=== PATIENT | male | born 1930 | race Caucasian/White ===

== ENCOUNTER 2016-11-08 10:40 | Emergency (ER) | payer MEDICARE ==
[~2016-11-08] VITALS: Ht 177.8 cm; Wt 63.5 kg
[~2016-11-08 10:40] MED LIST: AMLO10TA2 PO; AMLO10TA4 PO; AMLO5TAB2 PO; ASP81TEC PO; ASPI-586 PO; CETI10TA17 PO; CHOL10003 PO; CIPR-225 PO; CITA10TA PO; CLOP75TA PO; CLOP75TA28 PO; CPR500T PO; DCS100C PO; DICY10CA26 PO; DNPZ5T PO; DONE10TA12 PO; FLT05NA16 NSEACH; FLUO15CR8 TP; FNST5T PO; HYDR-3812 PO; HYOS0.127 PO; LISI-552 PO; LISI10TA PO; LORA0.5T PO; LORA10TA7 PO; LOSA50TA6 PO; MELA1TAB15 PO; MELO-195 PO; MELO15TA39 PO; MEMA10TA2 PO; MEMA5TAB2 PO; METR500T PO; MIRT15TA6 PO; MULT1CAP27 PO; MYLANTA; PANT40TA3 PO; PNT40TEC PO; RPN.25T PO; SIMV20TA3 PO; SULF1TAB7 PO; TMSL.4C PO; TRM50T PO; [UNRECOGNIZED DRUG - OTHER]; bactrim PO
--- NOTE | 2016-11-08 10:52 | ED Cough/URI ---
General Chief Complaint: Cough/Cold/Flu Symptoms Stated Complaint: BLURRED VISION/CONGESTION Source: patient Exam Limitations: no limitations History of Present Illness Time seen by provider: 10:51 Initial Comments To ER complaint by his with reports of 3 days of nasal congestion. This morning while sitting at the breakfast table had a rather sudden onset of bilateral blurred vision and and "irritated" sensation in both of his eyes. He denies any headaches fevers or chills. He denies any pain in his eyes. Timing/Duration: getting worse Severity/Quality: moderate Associated Symptoms: denies symptoms Allergies and Home Medications Allergies Coded Allergies: butorphanol (Verified Allergy, Unknown, 11/28/11) ketorolac (Verified Adverse Reaction, Mild, STATES CAUSES MORE PAIN, ) Home Medications Amlodipine Besylate 10 Mg Tablet, 10 MG PO HS, (Reported) Aspirin 81 Mg Tablet.dr, 81 MG PO DAILY, (Reported) Cetirizine HCl 10 Mg Tablet, 10 MG PO DAILY, #30 Prescribed by: JONN REID on 04/14/16 0821 Cholecalciferol 1,000 Unit Tablet, 1,000 UNIT PO DAILY, (Reported) Citalopram Hydrobromide 10 Mg Tablet, 10 MG PO DAILY, (Reported) Clopidogrel Bisulfate 75 Mg Tablet, 75 MG PO DAILY, (Reported) Donepezil HCl 10 Mg Tablet, 10 MG PO HS, (Reported) Hydrocodone/Acetaminophen 1 Each Tablet, 1-2 TAB PO Q4H PRN for PAIN, #40 MAY TAKE ONE OR TWO TABLETS BY MOUTH EVERY 4 HOURS NEEDED FOR PAIN. DO NOT EXCEED 3000 MG TYLENOL(ACETAMINOPHEN)IN A 24 HOUR PERIOD(NO MORE THAN 9 TABLETS IN 24 HOURS) Prescribed by: JONN REID on 04/14/16 1159 Lisinopril 20 Mg Tablet, 20 MG PO DAILY, (Reported) Melatonin/Pyridoxine 1 Each Tablet, 5 MG PO HS, (Reported) Meloxicam 15 Mg Tablet, 15 MG PO DAILY, (Reported) Memantine HCl 10 Mg Tablet, 10 MG PO BID, (Reported) Mirtazapine 15 Mg Tablet, 15 MG PO HS, (Reported) Multivitamins 1 Each Capsule, 1 EACH PO DAILY, (Reported) Pantoprazole Sodium 40 Mg Tablet.dr, 40 MG PO DAILY, (Reported) Ropinirole HCl 0.25 Mg Tab, 0.25 MG PO BID, #30 Prescribed by: JONN REID on 04/14/16 0825 Constitutional: see HPI EENTM: see HPI Respiratory: no symptoms reported Cardiovascular: no symptoms reported Genitourinary: no symptoms reported Musculoskeletal: no symptoms reported Skin: no symptoms reported Psychiatric/Neurological: No Symptoms Reported Hematologic/Lymphatic: No Symptoms Reported Immunological/Allergic: no symptoms reported Past Tiwhael-Jloxtd-Wunxvs Hx Patient Social History Recent Foreign Travel: No Contact w/Someone Who Travel: No Recent Hopitalizations: No Immunizations Up To Date Date of Pneumonia Vaccine: May 09, 2012 Date of Influenza Vaccine: Apr 13, 2016 Surgeries HX Surgeries: Yes (BILAT INGHERNIA ,CATARACT SURGERY, TURP) Surgeries: Abdominal, Adenoidectomy, Tonsillectomy Respiratory Hx Respiratory Disorders: No Cardiovascular Hx Cardiac Disorders: Yes (STENTS X2) Cardiac Disorders: High Cholesterol, Hypertension Neurological Hx Neurological Disorders: Yes (1993-STROKE) Neurological Disorders: Dementia, Stroke Reproductive System Hx Reproductive Disorders: No Sexually Transmitted Disease: No HIV/AIDS: No Genitourinary Hx Genitourinary Disorders: Yes Genitourinary Disorders: Benign Prostatic Hyperpl, Prostate Problems Gastrointestinal Hx Gastrointestinal Disorders: Yes Gastrointestinal Disorders: Gastroesophageal Reflux Musculoskeletal Hx Musculoskeletal Disorders: Yes (ARTHRITIS) Endocrine Hx Endocrine Disorders: No HEENT HX ENT Disorders: Yes (WEARS GLASSES, BILATERAL HEARING AIDS, ) HEENT Disorders: Cataract Loss of Vision: Bilateral Hearing Impairment: Bilateral Hearing Aide Cancer Hx Cancer: No Psychosocial Hx Psychiatric Problems: No Integumentary HX Skin/Integumentary Disorder: No Blood Transfusions Hx Blood Disorders: No Adverse Reaction to a Blood Tr: No Physical Exam Vital Signs Vital Sign - Last 12Hours 11/08/16 10:45 Temp 99.8 Pulse 79 Resp 18 B/P (MAP) 139/78 Pulse Ox 94 O2 Delivery Room Air Capillary Refill : General Appearance: WD/WN, no apparent distress Eyes: Bilateral Eye EOMI, Bilateral Eye Normal Inspection, Bilateral Eye PERRL HEENT: PERRL/EOMI, normal ENT inspection, other (bilaterally there is some scleral injection peoples or sluggish but equally reactive) Neck: non-tender, full range of motion Respiratory: no respiratory distress, no accessory muscle use Gastrointestinal: normal bowel sounds, non tender, soft Extremities: normal range of motion, non-tender Neurologic/Psychiatric: alert, normal mood/affect, oriented x 3 Skin: normal color, warm/dry Progress/Results/Core Measures Results/Orders Lab Results Laboratory Tests Test 11/08/16 11:00 Range/Units White Blood Count 8.2 4.3-11.0 10^3/uL Red Blood Count 3.93 L 4.35-5.85 10^6/uL Hemoglobin 12.4 L 13.3-17.7 G/DL Hematocrit 37 L 40-54 % Mean Corpuscular Volume 93 80-99 FL Mean Corpuscular Hemoglobin 32 25-34 PG Mean Corpuscular Hemoglobin Concent 34 32-36 G/DL Red Cell Distribution Width 14.5 10.0-14.5 % Platelet Count 164 130-400 10^3/uL Mean Platelet Volume 10.0 7.4-10.4 FL Neutrophils (%) (Auto) 77 H 42-75 % Lymphocytes (%) (Auto) 5 L 12-44 % Monocytes (%) (Auto) 18 H 0-12 % Eosinophils (%) (Auto) 0 0-10 % Basophils (%) (Auto) 0 0-10 % Neutrophils # (Auto) 6.3 1.8-7.8 X 10^3 Lymphocytes # (Auto) 0.4 L 1.0-4.0 X 10^3 Monocytes # (Auto) 1.5 H 0.0-1.0 X 10^3 Eosinophils # (Auto) 0.0 0.0-0.3 10^3/uL Basophils # (Auto) 0.0 0.0-0.1 10^3/uL Neutrophils % (Manual) 82 % Lymphocytes % (Manual) 6 % Monocytes % (Manual) 12 % Rouleau SLIGHT Blood Morphology Comment NORMAL Erythrocyte Sedimentation Rate 16 0-30 MM/HR Sodium Level 128 L 135-145 MMOL/L Potassium Level 4.4 3.6-5.0 MMOL/L Chloride Level 95 L 98-107 MMOL/L Carbon Dioxide Level 22 21-32 MMOL/L Anion Gap 11 5-14 MMOL/L Blood Urea Nitrogen 16 7-18 MG/DL Creatinine 0.90 0.60-1.30 MG/DL Estimat Glomerular Filtration Rate > 60 BUN/Creatinine Ratio 18 Glucose Level 130 H 70-105 MG/DL Calcium Level 8.7 8.5-10.1 MG/DL C-Reactive Protein High Sensitivity 10.25 H 0.00-0.50 MG/DL My Orders Orders - LUCAS CALLES APRN Cbc With Automated Diff (11/08/16 10:50) Erythrocyte Sedimentation Rate (11/08/16 10:50) Hs C Reactive Protein (11/08/16 10:50) Basic Metabolic Panel (11/08/16 10:50) Tetracaine 0.5% Ophth Dora Sdv (Tetracai (11/08/16 11:00) Manual Differential (11/08/16 11:00) Ct Head Wo (11/08/16 12:06) Medications Given in ED Current Medications Medications Dose Ordered Sig/Niall Route Start Time Stop Time Status Last Admin Dose Admin Tetracaine HCl 1 OR 2 DROPS INTO AFFEC... ONCE ONCE OP 11/08/16 11:00 11/08/16 11:01 DC 11/08/16 11:27 4 ML Vital Signs/I&O Vital Sign - Last 12Hours 11/08/16 10:45 Temp 99.8 Pulse 79 Resp 18 B/P (MAP) 139/78 Pulse Ox 94 O2 Delivery Room Air Departure Communication Progress Notes Right intraocular pressure 26 mm mercury, left 19. 1231-discussed the case with Dr. Hassan. Dr. Figueroa will see the patient in the clinic at 1 p.m. Impression Impression: Primary Impression: Nasal congestion Additional Impressions: Blurred vision Viral conjunctivitis Disposition: 01 HOME, SELF-CARE Condition: Stable Departure-Patient Inst. Decision time for Depature: 11:49 Referrals: DAYDAY JACQUES MD (PCP/Family) Primary Care Physician LORENZA REIS OD Patient Instructions: Age-Related Vision Loss Add. Discharge Instructions: 1. Your to see Dr. Reis at 1 p.m. at his office which is directly across the street from [facility] All discharge instructions reviewed with patient and/or family. Voiced understanding. LUCAS CALLES APRN Nov 08, 2016 10:52
[2016-11-08] MEDS ORDERED: TETRACAINE 0.5% OPHTH SOLN 4 ML BTL (SINGLE DOSE ONLY) OP ONE (11:00)
[2016-11-08 11:13] LABS: BASOPHILS % (AUTO) 0 % (0-10); EOSINOPHILS % (AUTO) 0 % (0-10); LYMPHOCYTES # (AUTO) 0.4 X 10^3 (1.0-4.0); LYMPHOCYTES % (AUTO) 5 % (12-44); MEAN CORPUSCULAR HEMOGLOBIN 32 PG (25-34); MEAN CORPUSCULAR HGB CONC 34 G/DL (32-36); MEAN CORPUSCULAR VOLUME 93 FL (80-99); MONOCYTES # (AUTO) 1.5 X 10^3 (0.0-1.0); MONOCYTES % (AUTO) 18 % (0-12); NEUTROPHILS # (AUTO) 6.3 X 10^3 (1.8-7.8); NEUTROPHILS % (AUTO) 77 % (42-75); PLATELET COUNT 164 10^3/uL (130-400); RED BLOOD COUNT 3.93 10^6/uL (4.35-5.85); RED CELL DISTRIBUTION WIDTH 14.5 % (10.0-14.5); WHITE BLOOD COUNT 8.2 10^3/uL (4.3-11.0)
[2016-11-08 11:28] LABS: ANION GAP 11 MMOL/L (5-14); BLOOD UREA NITROGEN 16 MG/DL (7-18); BUN/CREATININE RATIO 18; CALCIUM 8.7 MG/DL (8.5-10.1); CARBON DIOXIDE 22 MMOL/L (21-32); CHLORIDE 95 MMOL/L (98-107); GFR ESTIMATED > 60; GLUCOSE 130 MG/DL (70-105); POTASSIUM 4.4 MMOL/L (3.6-5.0); SODIUM 128 MMOL/L (135-145); hs C REACTIVE PROTEIN 10.25 MG/DL (0.00-0.50)
[2016-11-08 11:33] LABS: LYMPHOCYTES % (MANUAL) 6 %; NEUTROPHILS % (MANUAL) 82 %
[2016-11-08 11:34] LABS: ERYTHROCYTE SEDIMENTATION RATE 16 MM/HR (0-30); ROULEAUX SLIGHT
[2016-11-08 12:36] VITALS: BP 139/78
--- NOTE | 2016-11-08 12:47 | Diagnostic Imaging Report ---
PROCEDURE: CT head without contrast. TECHNIQUE: Multiple contiguous axial images were obtained through the brain without the use of intravenous contrast. INDICATION: Blurred Vision. FINDINGS: There is no intracranial hemorrhage. There is periventricular and deep white matter hypodensities, compatible with chronic microvascular ischemic changes. No hydrocephalus. No extra-axial fluid collection is seen. The paranasal sinuses demonstrate mucosal thickening in the ethmoidal air cells. The orbits appear grossly unremarkable. The calvarium appears grossly unremarkable. IMPRESSION: 1. No intracranial hemorrhage. White matter findings are likely secondary to chronic microvascular ischemic changes. 2. Mucosal thickening in the ethmoidal air cells. Dictated by: Dictated on workstation # [id number]
== END 2016-11-08 12:36 | disposition home or self-care (01) ==
LOC: EDUNIT# 10:40 → ER 10:44
DX: R09.81 Nasal congestion (principal); B30.9 Viral conjunctivitis, unspecified; I10 Essential (primary) hypertension; E78.00 Pure hypercholesterolemia, unspecified; K21.9 Gastro-esophageal reflux disease without esophagitis; M19.90 Unspecified osteoarthritis, unspecified site; N40.1 Benign prostatic hyperplasia with lower urinary tract symptoms; Z79.82 Long term (current) use of aspirin; Z86.73 Personal history of transient ischemic attack (TIA), and cerebral infarction without residual deficits; Z95.5 Presence of coronary angioplasty implant and graft
CPT/HCPCS: 36415; 70450; 80048; 85007; 85027; 85652; 86141

== ENCOUNTER → 2016-11-11 | Outpatient (CLI) | payer MEDICARE ==
--- NOTE | 2016-11-11 19:58 | Diagnostic Imaging Report ---
PA and lateral views of the chest. INDICATION: Cough. FINDINGS: The lungs are clear. The heart size is normal. No significant effusion. No pneumothorax. The mediastinum and lucrecia appear unremarkable. 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 Thoracolumbar scoliosis centered around the thoracolumbar junction is also noted. IMPRESSION: No acute process. Dictated by: Dictated on workstation # [id number]
== END ==
LOC: RAD 14:51
PROVIDERS: ATTEND Nurse Practitioner Family
DX: R05 Cough (principal)
CPT/HCPCS: 71020

== ENCOUNTER → 2016-12-01 | Outpatient (CLI) | payer MEDICARE ==
--- NOTE | 2016-12-01 16:57 | Diagnostic Imaging Report ---
PROCEDURE: CT sinuses without contrast TECHNIQUE: Multiple contiguous axial images were obtained through the sinuses without the use of intravenous contrast. Coronal and sagittal reformations were then performed. INDICATION: Nocturnal sinus drainage. FINDINGS: There is opacification of the mid and posterior left ethmoidal air cells and mild mucosal thickening in the mid right ethmoidal air cells. The maxillary sinuses are clear. The ostiomeatal complexes are patent on both sides. The frontal sinuses are patent. The mastoid air cells and middle ear cavities appear aerated. Sphenoidal sinuses appear clear. The orbits appear symmetric. The nasal cavity demonstrate no focal lesion and no significant mucosal thickening seen. The soft tissues appear unremarkable. IMPRESSION: Opacification of mid and posterior ethmoid air cells mostly on the left side, could correlate with mild sinusitis. Dictated by: Dictated on workstation # [id number]
== END ==
LOC: RAD 15:48
PROVIDERS: ATTEND Family Medicine
DX: R93.8 Abnormal findings on diagnostic imaging of other specified body structures (principal); R09.82 Postnasal drip
CPT/HCPCS: 70486

== ENCOUNTER → 2017-03-03 | Outpatient (CLI) | payer MEDICARE | LOC: CARD 10:37 | PROVIDERS: ATTEND Internal Medicine Cardiovascular Disease | DX: I25.10 Atherosclerotic heart disease of native coronary artery without angina pectoris (principal); I65.23 Occlusion and stenosis of bilateral carotid arteries; E78.4 Other hyperlipidemia; R00.1 Bradycardia, unspecified; Z86.79 Personal history of other diseases of the circulatory system | CPT/HCPCS: 93306 ==

== ENCOUNTER 2017-03-09 19:34 | Emergency (ER) | payer MEDICARE ==
[~2017-03-09] VITALS: Ht 177.8 cm; Wt 63.5 kg
--- NOTE | 2017-03-09 21:39 | ED EENT ---
History of Present Illness General Chief Complaint: Skin/Wound Problems Stated Complaint: TONGUE BLEEDING Nursing Triage Note: PT AMB TO ED BY SELF, 2X2 GAUZES IN PT MOUTH REPORTING BLEEDING OF UNKOWN CAUSE. PT STATES 1814 POST SUPPER TOLD HIM HE HAD BLOOD ON MOUTH. PT TAKES PLAVIX Source: patient Exam Limitations: no limitations History of Present Illness Time seen by provider: 21:15 Initial Comments Patient presents to ER by private conveyance with chief complaint that he was sitting at the dinner table with his this evening and she noticed some blood coming out of his mouth. The patient denies biting his tongue. He has no known growths or nodules on his tongue or mouth. He says he was not using a knife anywhere near his mouth. He applied pressure but it did not stop bleeding taking the ER. He is on aspirin and Plavix but no other blood thinners. He is taking his medicines routinely. He has no history of cancer. No other recent trauma to the face or mouth. No fevers, chills, nausea, vomiting, diarrhea. Allergies and Home Medications Allergies Coded Allergies: butorphanol (Verified Allergy, Unknown, 11/28/11) ketorolac (Verified Adverse Reaction, Mild, STATES CAUSES MORE PAIN, ) Home Medications Amlodipine Besylate 10 Mg Tablet, 10 MG PO HS, (Reported) Aspirin 81 Mg Tablet.dr, 81 MG PO DAILY, (Reported) Cetirizine HCl 10 Mg Tablet, 10 MG PO DAILY, #30 Prescribed by: JONN REID on 04/14/16 0821 Cholecalciferol 1,000 Unit Tablet, 1,000 UNIT PO DAILY, (Reported) Citalopram Hydrobromide 10 Mg Tablet, 10 MG PO DAILY, (Reported) Clopidogrel Bisulfate 75 Mg Tablet, 75 MG PO DAILY, (Reported) Donepezil HCl 10 Mg Tablet, 10 MG PO HS, (Reported) Hydrocodone/Acetaminophen 1 Each Tablet, 1-2 TAB PO Q4H PRN for PAIN, #40 MAY TAKE ONE OR TWO TABLETS BY MOUTH EVERY 4 HOURS NEEDED FOR PAIN. DO NOT EXCEED 3000 MG TYLENOL(ACETAMINOPHEN)IN A 24 HOUR PERIOD(NO MORE THAN 9 TABLETS IN 24 HOURS) Prescribed by: JONN REID on 04/14/16 1159 Lisinopril 20 Mg Tablet, 20 MG PO DAILY, (Reported) Melatonin/Pyridoxine 1 Each Tablet, 5 MG PO HS, (Reported) Meloxicam 15 Mg Tablet, 15 MG PO DAILY, (Reported) Memantine HCl 10 Mg Tablet, 10 MG PO BID, (Reported) Mirtazapine 15 Mg Tablet, 15 MG PO HS, (Reported) Multivitamins 1 Each Capsule, 1 EACH PO DAILY, (Reported) Pantoprazole Sodium 40 Mg Tablet.dr, 40 MG PO DAILY, (Reported) Ropinirole HCl 0.25 Mg Tab, 0.25 MG PO BID, #30 Prescribed by: JONN REID on 04/14/16 0825 Review of Systems Constitutional: No chills, No diaphoresis Eyes: Denies Blurred Vision, Denies Drainage Ears: Denies Dizziness, Denies Pain Nose: denies clots, denies congestion Mouth: clots, denies loose teeth, denies pain, bloody discharge, denies serosanguinous discharge Throat: denies pain, denies swelling Respiratory: No cough, No dyspnea on exertion Cardiovascular: No chest pain, No palpitations Gastrointestinal: No abdominal pain, No constipation, No diarrhea, No nausea Past Nogpsjs-Ijvpbe-Ppktex Hx Patient Social History Alcohol Use: Denies Use Recreational Drug Use: No Smoking Status: Never a Smoker Recent Foreign Travel: No Contact w/Someone Who Travel: No Recent Infectious Disease Expo: No Recent Hopitalizations: No Immunizations Up To Date Tetanus Booster (TDap): Less than 5yrs Date of Pneumonia Vaccine: May 09, 2012 Date of Influenza Vaccine: Feb 06, 2017 Seasonal Allergies Seasonal Allergies: No Surgeries History of Surgeries: Yes (BILAT ING HERNIA ,CATARACT SURGERY, TURP) Surgeries: Abdominal, Adenoidectomy, Tonsillectomy Respiratory History of Respiratory Disorde: No Cardiovascular History of Cardiac Disorders: Yes (STENTS X2) Cardiac Disorders: Coronary Artery Disease, High Cholesterol, Hypertension Neurological History of Neurological Disord: Yes (1994-STROKE) Neurological Disorders: Dementia, Stroke Reproductive System Hx Reproductive Disorders: No Sexually Transmitted Disease: No HIV/AIDS: No Genitourinary History of Genitourinary Disor: Yes (HX TURP) Genitourinary Disorders: Benign Prostatic Hyperpl, Prostate Problems Gastrointestinal History of Gastrointestinal Di: Yes Gastrointestinal Disorders: Gastroesophageal Reflux Musculoskeletal History of Musculoskeletal Dis: Yes (ARTHRITIS) Endocrine History of Endocrine Disorders: No HEENT History of HEENT Disorders: Yes HEENT Disorders: Cataract Loss of Vision: Bilateral Hearing Impairment: Bilateral Hearing Aide Cancer History of Cancer: No Psychosocial History of Psychiatric Problem: No Integumentary History of Skin or Integumenta: No Blood Transfusions History of Blood Disorders: No Adverse Reaction to a Blood Tr: No Physical Exam Vital Signs Vital Sign - Last 12Hours 03/09/17 20:40 Temp 97.6 Pulse 65 Resp 20 B/P (MAP) 131/77 Pulse Ox 97 O2 Delivery Room Air General Appearance: WD/WN, no apparent distress Eyes: bilateral eye normal inspection, bilateral eye PERRL, bilateral eye EOMI Ears: bilateral ear auricle normal, bilateral ear canal normal, bilateral ear TM normal Nose: normal inspection, No active bleeding, No discharge Mouth/Throat: other (Pharynx with bloody secretions and clotting on the top of the tongue. When wiped away there is a small area just right of the midline at the very tip of his tongue that is actively bleeding a small amount. No other tumors, nodules, ulceration seen.) Neck: non-tender, full range of motion, supple Cardiovascular: normal peripheral pulses, regular rate, rhythm Respiratory: no respiratory distress, no accessory muscle use Neurologic/Psychiatric: alert, oriented x 3 Skin: normal color, warm/dry Progress/Results/Core Measures Results/Orders My Orders Orders - SEJAL WILSON Tranexamic Acid Injection (Cyklokapron I (03/09/17 21:45) Cbc No Diff (03/09/17 22:34) Comprehensive Metabolic Panel (03/09/17 22:34) Protime With Inr (03/09/17 22:34) Partial Thromboplastin Time (03/09/17 22:34) Dipht,Pertuss(Acell),Tet Adult (Boostrix (03/09/17 23:15) Medications Given in ED Current Medications Medications Dose Ordered Sig/Niall Route Start Time Stop Time Status Last Admin Dose Admin Tranexamic Acid 20 mg ONCE ONCE IV 03/09/17 21:45 03/09/17 21:46 DC 03/09/17 21:42 20 MG Vital Signs/I&O Vital Sign - Last 12Hours 03/09/17 20:40 Temp 97.6 Pulse 65 Resp 20 B/P (MAP) 131/77 Pulse Ox 97 O2 Delivery Room Air Blood Pressure Mean: 95 Progress Note #1: Time: 21:38 Progress Note We will attempt to stop the bleeding with TX say. If this is not successful try silver cautery. He'll need to follow-up with ENT to see if we can find tumor or something that needs excised or at least biopsied. Progress Note #2: Time: 23:24 Progress Note After using TX say and then silver cautery we have obtained hemostasis. We'll have the patient take his medicines with a sip of water only and otherwise be nothing by mouth until he sees his dentist tomorrow morning. We'll send some TX say home in case he has rebleeding. Consults Consults : Consulting Physician: VICK RIOJAS Consults Notes Discussed the case and the patient findings and she says she will not be able put a stitch in him and the physician is out of town. She would recommend the same things are done. She thinks that the tea bag with tendons might be helpful. Departure Impression Impression: Primary Impression: Tongue laceration Qualified Codes: S01.512A - Laceration without foreign body of oral cavity, initial encounter Disposition: 01 HOME, SELF-CARE Condition: Stable Departure-Patient Inst. Decision time for Depature: 23:25 Referrals: DAYDAY JACQUES MD (PCP/Family) Primary Care Physician Patient Instructions: Your Dental Health and Your Medical Health Add. Discharge Instructions: He may take your medicines with a sip of water. Otherwise do not eat or drink anything until you see your dentist in the morning. If you begin to have bleeding from the tongue again you should take the TXA impregnated gauze and apply over the leading wound and present against the roof of your mouth and hold there. Please do not swallow your secretions rather you should spit them out as swallowed blood can cause nausea and vomiting. If you begin to have chest pain or shortness of breath he should return to the ER. You have a laceration in the tip of your tongue that looks like it was caused by a tooth and was treated with teabags, tranexamic acid, silver nitrate cautery before we finally got it under control. I would like to follow up with your dentist so that if it still bleeding you can have a stitch placed if necessary. All discharge instructions reviewed with patient and/or family. Voiced understanding. Copy Copies To 1: DAYDAY JACQUES MD, TITUS J Mar 09, 2017 21:39
[2017-03-09] MEDS ORDERED: TRANEXAMIC ACID 100 MG/ML 10 ML INJECTION IV ONE (21:45)
[2017-03-09] MEDS ORDERED: TETANUS,DIPTH,PERTUSS P/F (BOOSTRIX) 0.5 ML VIAL IM ONE (23:15)
[2017-03-09 23:45] VITALS: BP 132/85
[2017-03-09] MEDS ORDERED: TRANEXAMIC ACID INJECTION 1,000 MG in NS (IVPB) 50 ML IV ONE (23:45)
== END 2017-03-09 23:45 | disposition home or self-care (01) ==
LOC: EDUNIT# 19:34 → ER 19:36
DX: S01.512A Laceration without foreign body of oral cavity, initial encounter (principal); I25.10 Atherosclerotic heart disease of native coronary artery without angina pectoris; I10 Essential (primary) hypertension; E78.00 Pure hypercholesterolemia, unspecified; F03.90 Unspecified dementia, unspecified severity, without behavioral disturbance, psychotic disturbance, mood disturbance, and anxiety; N40.0 Benign prostatic hyperplasia without lower urinary tract symptoms; M19.90 Unspecified osteoarthritis, unspecified site; Z23 Encounter for immunization; Z95.5 Presence of coronary angioplasty implant and graft; Z79.82 Long term (current) use of aspirin; Z79.02 Long term (current) use of antithrombotics/antiplatelets; Z90.89 Acquired absence of other organs; X58.XXXA Exposure to other specified factors, initial encounter
CPT/HCPCS: 99282

== ENCOUNTER → 2017-05-12 | Outpatient (CLI) | payer MEDICARE ==
[~2017-05-12] MED LIST changes: +ACHD5005 PO; +BARIUM SUSPENSION 2.1% (VANILLA SILQ) 450 ML PO ONE; +CATHETER FLUSH 10 ML SYR IV PRN; -HYDR-3812 PO; +IOHEXOL 350 MG/ML 100 ML (OMNIPAQUE 350) VIAL IV ONE; +NS 100 ML (IVPB) BAG IV ONE
[2017-05-12 13:19] LABS: BUN/CREATININE RATIO 17; CREATININE SERUM 1.04 MG/DL (0.60-1.30); GFR ESTIMATED > 60
--- NOTE | 2017-05-12 15:30 | Diagnostic Imaging Report ---
PROCEDURE: CT abdomen and pelvis with contrast. TECHNIQUE: Multiple contiguous axial images were obtained through the abdomen and pelvis after administration of intravenous contrast. INDICATION: Prostate cancer. FINDINGS: The previous CT abdomen/pelvis exam of 09/25/2014 did note that the prostate gland was enlarged measuring 5.5 cm in maximum transverse diameter. On this study, the prostate gland does not appear to be quite as prominent. The gland measures 5.0 cm. Along the inferior aspect of the prostate gland, there is a 1.4 x 1.6 cm area of enhancement. This finding is of uncertain etiology. It would be unlikely that this is due to a neoplastic process, but that possibility should still be considered. The urinary bladder is distended by urine. There is no obvious bladder abnormality evident. There is no pelvic mass or free fluid collection noted. The appendix was not well visualized, and there are no indirect signs of acute appendicitis. The liver, spleen, pancreas, adrenals, gallbladder, kidneys, aorta, and inferior vena cava are unremarkable for an acute abnormality. The stomach is partially filled with oral contrast and consequently difficult to assess. There are surgical clips along the anterior abdominal wall consistent with prior hernia repair. There is no sign of a recurrent hernia. The lung bases are clear. The bone windows show no sign of a fracture or of a destructive lesion. There is severe degenerative disc and bony disease throughout the lumbar spine, and there is levoscoliosis of the thoracolumbar junction. IMPRESSION: 1. The prostate gland does not appear as enlarged as noted on the prior exam. The area of increased density along the inferior aspect of the prostate gland is of uncertain etiology. It would be unlikely but possible that this is secondary to neoplasm. 2. There is no acute abnormality of the abdomen or pelvis identified. 3. There is no sign of metastatic skeletal disease. 4. These results will be discussed with Dr. Quintero. Dictated on workstation # [id number]
--- NOTE | 2017-05-12 17:01 | Diagnostic Imaging Report ---
EXAMINATION: Whole body bone scan. INDICATION: Prostate carcinoma. TECHNIQUE: This study was performed following administration of 24.8 mCi of 99m technetium MDP. Anterior and posterior whole body images were obtained. Images of the skull and thorax in the lateral projection were also performed. COMPARISON: There are no previous nuclear medicine bone scans available for comparison. FINDINGS: There are areas of increased activity involving the posterior aspect of the vertebral body of T11 on the left and the pedicle of L1 on the right. These findings are probably due to degenerative disease. In reviewing the CT abdomen/pelvis exam performed in conjunction with this study, there is no sign of bony destruction in these areas to suggest metastatic disease. There is no other focal area of abnormal uptake identified to indicate neoplastic disease. The levoscoliosis of the thoracolumbar spine seen previously is again evident. There is also an area of increased uptake in the lower cervical spine on the right. This too is probably degenerative in nature. The levoscoliosis of the thoracolumbar spine seen previous is again evident. In addition, there does appear to be degenerative disease of the shoulder, hip, and knee joints. There is no abnormal uptake to suggest neoplastic disease or an acute abnormality. There is excretion of the contrast by both kidneys. IMPRESSION: 1. The areas of abnormal uptake involving the vertebral bodies of T11 on the left and L1 on the right are probably due to degenerative disease. The increased uptake in the lower cervical region on the right is also most likely degenerative in nature. 2. There is no sign of metastatic disease or of an acute bony abnormality. Dictated by: Dictated on workstation # [id number]
== END ==
LOC: RAD 11:53
PROVIDERS: ATTEND Urology
DX: C61 Malignant neoplasm of prostate (principal)
CPT/HCPCS: 36415; 74177; 78306; 82565; 84520

== ENCOUNTER 2017-06-25 04:07 | Emergency (ER) | payer MEDICARE ==
[~2017-06-25] VITALS: Ht 177.8 cm; Wt 63.7 kg
[~2017-06-25 04:07] MED LIST changes: -BARIUM SUSPENSION 2.1% (VANILLA SILQ) 450 ML PO ONE; -CATHETER FLUSH 10 ML SYR IV PRN; -IOHEXOL 350 MG/ML 100 ML (OMNIPAQUE 350) VIAL IV ONE; -NS 100 ML (IVPB) BAG IV ONE
--- OUTSIDE RECORDS SUMMARY | 2017-06-25 04:13 | XMS REPORT | Continuity of Care Document ---
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
--- OUTSIDE RECORDS SUMMARY | 2017-06-25 04:21 | XMS REPORT | CCD ---
Author Author [facility] Organization [facility] Address [address] [place] [address] Phone Care Team Providers Care Assistant Professor Surgical Technology Name Role Phone Ale Carlos PP Unavailable CCM Unavailable Summary Purpose Interface Exchange Insurance Providers Payer name Policy type / Coverage type Covered republican ID Effective Begin Date Effective End Date WPS Medicare Part B Medicare Part B [id number] Unknown Unknown [facility] Medicare Part B [id number] Unknown Unknown Family history Runs in the family Diagnosis Age At Onset No Family Disease Entered N/A Mother Diagnosis Age At Onset No Family Disease Entered N/A Father Diagnosis Age At Onset Heart disease Unknown Social History Social History Element Codes Description Effective Dates Number of children [place] 3 3 [place] 05/06/2015 Living arrangements Unknown House 01/11/2011 Number of adults in household Unknown 2 01/11/2011 Education level Unknown Post-Graduate PHD in chemistry 01/11/2011 Employment Unknown 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 Unknown Has never used illegal drugs 01/06/2011 Allergies, Adverse Reactions, Alerts Substance Reaction Codes Entered Date Inactivated Date Status Lisinopril cough Unknown 03/25/2014 No Inactive Date Active Past Medical History Illness Codes Condition Status Onset Date Resolved Date Essential (primary) hypertension ICD-9: 401.1 ICD-10: I10 Active 03/21/2017 Unknown Other allergic rhinitis ICD-9: 477.8 ICD-10: J30.89 Active 01/20/2016 Unknown Encounter for immunization ICD-9: V04.81 ICD-10: Z23 Active 01/25/2017 Unknown Essential (primary) hypertension ICD-9: 401.9 ICD-10: I10 Active 12/24/2013 Unknown Other hypotension ICD- 9: 458.8 ICD-10: I95.89 Active 01/25/2017 Unknown Acute recurrent maxillary sinusitis ICD-9: 461.0 ICD-10: J01.01 Active 12/20/2016 Unknown Acute recurrent ethmoidal sinusitis ICD-9: 461.2 ICD-10: J01.21 Active 12/01/2016 Unknown Bronchitis, not specified as acute or chronic ICD-9: 490 ICD-10: J40 Active 11/18/2016 Unknown Cough ICD-9: 786.2 ICD-10: R05 Active 11/18/2016 Unknown Candidal esophagitis ICD-9: 112.84 ICD-10: B37.81 Active 11/18/2016 Unknown Mild cognitive impairment, so stated ICD-9: 331.83 ICD-10: G31.84 Active 05/29/2014 Unknown Olecranon bursitis, right elbow ICD-9: 726.33 ICD-10: M70.21 Active 02/16/2016 Unknown Hypo-osmolality and hyponatremia ICD-9: 276.1 ICD-10: E87.1 Active 02/04/2016 Unknown Generalized abdominal tenderness ICD-9: 789.67 ICD-10: R10.817 Active 01/25/2016 Unknown Encounter for immunization ICD-9: V03.9 ICD-10: Z23 Active 05/05/2015 Unknown Generalized anxiety disorder ICD-9: 300.02 ICD-10: F41.1 Active 05/29/2014 Unknown Mixed hyperlipidemia ICD-9: 272.4 ICD-10: E78.2 Active 01/24/2012 Unknown Gastro-esophageal reflux disease without esophagitis ICD-9: 530.81 ICD-10: K21.9 Active 03/04/2015 Unknown Major depressive disorder, single episode, 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 ICD-10: F32.0 Active 06/06/2014 Unknown IRRITABLE COLON ICD-9 : 564.1 Active 12/04/2014 Unknown Abdominal pain ICD-9: 789.00 Active 09/24/2014 Unknown Osteoarthritis ICD-9: 715.90 Active 01/24/2012 Unknown Depression Unknown Active 06/06/2014 Unknown Depression ICD-9: 311 Active 06/06/2014 Unknown Dizziness ICD-9: 780.4 Active 06/06/2014 Unknown Urinary frequency ICD- 9: 788.41 Active 06/06/2014 Unknown GENERALIZED ANXIETY DISEASE ICD-9: 300.02 Active 05/29/2014 Unknown Mild cognitive impairment with memory loss ICD-9: 331.83 Active 05/29/2014 Unknown NOCTURIA ICD-9: 788.43 Active 05/23/2014 Unknown Pneumonia ICD-9: 486 Active 05/20/2014 Unknown COUGH ICD-9: 786.2 Active 02/08/2014 Unknown ESSENTIAL HYPERTENSION ICD-9: 401.9 Active 12/24/2013 Unknown Nasal congestion ICD-9 : 478.19 Active 11/20/2013 Unknown Seasonal allergies ICD -9: 477.9 Active 11/20/2013 Unknown ABNORMAL LOSS OF WEIGHT ICD-9: 783.21 Active 10/30/2013 Unknown Hyponatremia ICD-9: 276.1 Active 10/30/2013 Unknown MALAISE AND FATIGUE ICD-9: 780.79 Active 10/30/2013 Unknown Acute maxillary sinusitis ICD-9: 461.0 Active 10/08/2013 Unknown Coronary artery disease ICD-9: 414.00 Active 06/18/2013 Unknown Encounter for long-term (current) use of other medications ICD-9: V58.69 Active 02/19/2013 Unknown Leukopenia ICD-9: 288.50 Active 02/19/2013 Unknown Osteoarthritis Unknown Active 01/24/2012 Unknown HYPERLIPIDEMIA ICD-9: 272.4 Active 01/24/2012 Unknown BPH W URINARY OBS/LUTS ICD-9: 600.01 Active 12/20/2011 Unknown Lump in the groin ICD- 9: 789.30 Active 12/09/2011 Unknown DIVERTICULOSIS, COLON ICD-9: 562.10 Active 04/19/2011 Unknown 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 2010 Unknown Laceration of finger, index ICD-9: 883.0 Active 03/08/2011 Unknown Hypertension Unknown Active 03/01/2011 Unknown Need for shingles vaccine ICD-9: V04.89 Active 02/25/2011 Unknown VACCIN STREP PNEUMONIAE ICD-9: V03.82 Active 02/16/2011 Unknown VACCIN FOR INFLUENZA ICD-9: V04.81 Active 02/09/2011 Unknown Bruising ICD-9: 924.9 Active 02/01/2011 Unknown HYDROCELE ICD-9: 603.9 Active 02/01/2011 Unknown Testicular pain ICD-9 : 608.9 Active 01/27/2011 Unknown Arm bruise ICD-9: 923.9 Active 01/26/2011 Unknown Blood Transfusions Unknown Active 01/06/2011 Unknown Hyperlipidemia Unknown Active 01/06/2011 Unknown Stroke Unknown Active 01/06/2011 Unknown DIARRHEA ICD-9: 787.91 Active 01/06/2011 Unknown Elevated liver function tests ICD-9: 790.6 Active 01/06/2011 Unknown Problems Condition Codes Effective Dates Condition Status Essential (primary) hypertension ICD-9: 401.1 ICD-10: I10 03/21/2017 Active Other allergic rhinitis ICD-9: 477.8 ICD-10: J30.89 01/20/2016 Active Encounter for immunization ICD-9: V04.81 ICD-10: Z23 01/25/2017 Active Essential (primary) hypertension ICD-9: 401.9 ICD-10: I10 12/24/2013 Active Other hypotension ICD- 9: 458.8 ICD-10: I95.89 01/25/2017 Active Acute recurrent maxillary sinusitis ICD-9: 461.0 ICD-10: J01.01 12/20/2016 Active Acute recurrent ethmoidal sinusitis ICD-9: 461.2 ICD-10: J01.21 12/01/2016 Active Bronchitis, not specified as acute or chronic ICD-9: 490 ICD-10: J40 11/18/2016 Active Cough ICD-9: 786.2 ICD-10: R05 11/18/2016 Active Candidal esophagitis ICD-9: 112.84 ICD-10: B37.81 11/18/2016 Active Mild cognitive impairment, so stated ICD-9: 331.83 ICD-10: G31.84 05/29/2014 Active Olecranon bursitis, right elbow ICD-9: 726.33 ICD-10: M70.21 02/16/2016 Active Hypo-osmolality and hyponatremia ICD-9: 276.1 ICD-10: E87.1 02/04/2016 Active Generalized abdominal tenderness ICD-9: 789.67 ICD-10: R10.817 01/25/2016 Active Encounter for immunization ICD-9: V03.9 ICD-10: Z23 05/05/2015 Active Generalized anxiety disorder ICD-9: 300.02 ICD-10: F41.1 05/29/2014 Active Mixed hyperlipidemia ICD-9: 272.4 ICD-10: E78.2 01/24/2012 Active Gastro-esophageal reflux disease without esophagitis ICD-9: 530.81 ICD-10: K21.9 03/04/2015 Active Major depressive disorder, single episode, 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 ICD-10: F32.0 06/06/2014 Active IRRITABLE COLON ICD-9 : 564.1 12/04/2014 Active Abdominal pain ICD-9: 789.00 09/24/2014 Active Osteoarthritis ICD-9: 715.90 01/24/2012 Active Depression Unknown 06/06/2014 Active Depression ICD-9: 311 06/06/2014 Active Dizziness ICD-9: 780.4 06/06/2014 Active Urinary frequency ICD- 9: 788.41 06/06/2014 Active GENERALIZED ANXIETY DISEASE ICD-9: 300.02 05/29/2014 Active Mild cognitive impairment with memory loss ICD-9: 331.83 05/29/2014 Active NOCTURIA ICD-9: 788.43 05/23/2014 Active Pneumonia ICD-9: 486 05/20/2014 Active COUGH ICD-9: 786.2 02/08/2014 Active ESSENTIAL HYPERTENSION ICD-9: 401.9 12/24/2013 Active Nasal congestion ICD-9 : 478.19 11/20/2013 Active Seasonal allergies ICD -9: 477.9 11/20/2013 Active ABNORMAL LOSS OF WEIGHT ICD-9: 783.21 10/30/2013 Active Hyponatremia ICD-9: 276.1 10/30/2013 Active MALAISE AND FATIGUE ICD-9: 780.79 10/30/2013 Active Acute maxillary sinusitis ICD-9: 461.0 10/08/2013 Active Coronary artery disease ICD-9: 414.00 06/18/2013 Active Encounter for long-term (current) use of other medications ICD-9: V58.69 2012 Active Leukopenia ICD-9: 288.50 02/19/2013 Active Osteoarthritis Unknown 01/24/2012 Active HYPERLIPIDEMIA ICD-9: 272.4 01/24/2012 Active BPH W URINARY OBS/LUTS ICD-9: 600.01 12/20/2011 Active Lump in the groin ICD- 9: 789.30 12/09/2011 Active DIVERTICULOSIS, COLON ICD-9: 562.10 04/19/2011 Active 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 04/19/2011 Active Laceration of finger, index ICD-9: 883.0 03/08/2011 Active Hypertension Unknown 03/01/2011 Active Need for shingles vaccine ICD-9: V04.89 02/25/2011 Active VACCIN STREP PNEUMONIAE ICD-9: V03.82 02/16/2011 Active VACCIN FOR INFLUENZA ICD-9: V04.81 02/09/2011 Active Bruising ICD-9: 924.9 02/01/2011 Active HYDROCELE ICD-9: 603.9 02/01/2011 Active Testicular pain ICD-9 : 608.9 01/27/2011 Active Arm bruise ICD-9: 923.9 01/26/2011 Active Blood Transfusions Unknown 01/06/2011 Active Hyperlipidemia Unknown 01/06/2011 Active Stroke Unknown 01/06/2011 Active DIARRHEA ICD-9: 787.91 01/06/2011 Active Elevated liver function tests ICD-9: 790.6 01/06/2011 Active Medications Medication Codes Instructions Start Date Stop Date Status Fill Instructions lisinopril 20 mg tablet RxNorm: 622039 TAKE 1 TABLET DAILY 11/25/2017 Active Mobic 15 mg tablet RxNorm: 042928 1/2 TABLET(S) DAILY 201609/16/2017 Active donepezil 10 mg tablet RxNorm: 329860 1 Tablet(s) PO daily TAKE 1 TABLET BY MOUTH ONCE DAILY 02/28/2017 11/24/2017 Active Patient requests 90 days supply Requip 0.25 mg tablet RxNorm: 983539 1 TABLET(S) PO BID 201606/22/2017 Active Patient requests 90 days supply clopidogrel 75 mg tablet RxNorm: 398440 TAKE 1 TABLET BY MOUTH EVERY DAY 12/23/2016 06/20/2017 Active lisinopril 20 mg tablet RxNorm: 402817 TAKE 1 TABLET DAILY 05/24/2017 Inactive Kenalog 40 mg/mL suspension for injection RxNorm: 5936778 Milliliter(s) Inj 11/25/2016 11/25/2016 Inactive cefdinir 300 mg capsule RxNorm: 091902 1 Capsule(s) PO BID 11/27/2016 Inactive cefdinir 300 mg capsule RxNorm: 819444 1 Capsule(s) PO BID 11/22/2016 Inactive nystatin 100,000 unit/mL oral suspension RxNorm: 009297 5 Milliliter(s) PO QID 11/18/2016 11/27/2016 Inactive azithromycin 250 mg tablet RxNorm: 747488 1 Tablet(s) PO UD 2 pills on day #1 then one pill daily x 4 more days 11/18/2016 11/22/2016 Inactive Mobic 15 mg tablet RxNorm: 989825 1/2 TABLET(S) DAILY 201603/20/2017 Inactive citalopram 10 mg tablet RxNorm: 625901 TAKE 1 TABLET BY MOUTH EVERY DAY 10/07/2016 03/05/2017 Inactive Patient requests 90 days supply mirtazapine 15 mg tablet RxNorm: 191251 TAKE ONE TABLET BY MOUTH EVERY DAY 10/06/2016 09/30/2017 Active mirtazapine 15 mg tablet RxNorm: 340125 TAKE ONE TABLET BY MOUTH EVERY DAY 10/05/2016 10/05/2016 Inactive Patient requests 90 days supply amlodipine 10 mg tablet RxNorm: 329539 TAKE 1 TABLET BY MOUTH EVERY DAY 09/14/2016 01/24/2017 Inactive clopidogrel 75 mg tablet RxNorm: 954934 TAKE 1 TABLET BY MOUTH EVERY DAY 06/28/2016 12/22/2016 Inactive lisinopril 20 mg tablet RxNorm: 674045 TAKE 1 TABLET DAILY 11/25/2016 Inactive donepezil 10 mg tablet RxNorm: 204240 TAKE 1 TABLET BY MOUTH ONCE DAILY 05/11/2016 11/06/2016 Inactive donepezil 10 mg tablet RxNorm: 907466 TAKE 1 TABLET BY MOUTH ONCE DAILY 04/26/2016 02/28/2017 Inactive Mobic 15 mg tablet RxNorm: 598108 1/2 Tablet(s) daily 201510/15/2016 Inactive citalopram 10 mg tablet RxNorm: 380057 TAKE 1 TABLET BY MOUTH EVERY DAY 04/06/2016 04/25/2016 Inactive cetirizine 10 mg tablet RxNorm: 9018352 Tablet(s) 1 TABLET(S) PO DAILY TO TAKE INSTEAD OF THE CLARITIN 03/30/20162016 Inactive amlodipine 10 mg tablet RxNorm: 106905 TAKE 1 TABLET BY MOUTH EVERY DAY 03/08/2016 01/24/2017 Inactive amlodipine 10 mg tablet RxNorm: 065421 1 Tablet(s) PO daily TAKE 1 TABLET BY MOUTH ONCE DAILY 03/03/2016 03/07/2016 Inactive Requip 0.25 mg tablet RxNorm: 862213 1 Tablet(s) PO BID 201509/13/2016 Inactive Mobic 15 mg tablet RxNorm: 502212 1 Tablet(s) daily not refilled on 02/23/2016 04/18/2016 Inactive cetirizine 10 mg tablet RxNorm: 4754051 1 TABLET(S) PO DAILY TO TAKE INSTEAD OF THE CLARITIN 02/19/2016 03/19/2016 Inactive lisinopril 20 mg tablet RxNorm: 940422 TAKE 1 TABLET DAILY 04/201605/17/2016 Inactive Namenda 10 mg tablet RxNorm: 975421 Tablet(s) TAKE 1 TABLET BY MOUTH TWICE DAILY. 02/17/2016 No Stop Date Active lisinopril 20 mg tablet RxNorm: 802539 TAKE 1 TABLET DAILY 01/24/2017 Inactive cetirizine 10 mg tablet RxNorm: 6552825 1 Tablet(s) PO daily to take instead of the claritin 01/21/2016 02/18/2016 Inactive amlodipine 10 mg tablet RxNorm: 714452 1 Tablet(s) PO daily TAKE 1 TABLET BY MOUTH ONCE DAILY 12/02/2015 03/02/2016 Inactive clopidogrel 75 mg tablet RxNorm: 990198 TAKE 1 TABLET BY MOUTH EVERY DAY 11/25/2015 05/22/2016 Inactive Mobic 15 mg tablet RxNorm: 946041 TAKE(1/2) TABLET DAILY. 03/201602/22/2016 Inactive lisinopril 20 mg tablet RxNorm: 005357 TAKE 1 TABLET DAILY 03/201601/15/2016 Inactive Mobic 15 mg tablet RxNorm: 430822 1/2 Tablet(s) PO daily TAKE (1/2) TABLET DAILY. 11/12/2015 11/16/2015 Inactive citalopram 10 mg tablet RxNorm: 119781 TAKE 1 TABLET BY MOUTH EVERY DAY 10/27/2015 04/05/2016 Inactive Requip 0.25 mg tablet RxNorm: 418140 1 Tablet(s) PO BID 201502/11/2016 Inactive Requip 0.25 mg tablet RxNorm: 232691 1 Tablet(s) PO BID 201510/14/2015 Inactive mirtazapine 15 mg tablet RxNorm: 433872 1 Tablet(s) PO daily 10/01/2016 Inactive donepezil 10 mg tablet RxNorm: 958946 TAKE 1 TABLET DAILY 08/3104/25/2016 Inactive amlodipine 10 mg tablet RxNorm: 119651 1 Tablet(s) PO daily TAKE 1 TABLET BY MOUTH ONCE DAILY 08/18/2015 12/01/2015 Inactive clopidogrel 75 mg tablet RxNorm: 234280 1 Tablet(s) PO daily TAKE 1 TABLET DAILY 05/20/2015 11/24/2015 Inactive Mobic 15 mg tablet RxNorm: 937036 Tablet(s) TAKE (1/2) TABLET DAILY. 04/23/2015 10/19/2015 Inactive lisinopril 20 mg tablet RxNorm: 824437 TAKE 1 TABLET DAILY 11/16/2015 Inactive Mobic 15 mg tablet RxNorm: 677463 TAKE (1/2) TABLET DAILY. 04/22/2015 Inactive sulfamethoxazole 400 mg-trimethoprim 80 mg tablet RxNorm: 151022 1/2 Tablet(s) PO daily 03/11/2015 04/09/2015 Inactive Vesicare 5 mg tablet RxNorm: 887872 1 Tablet(s) PO 03/11/2015 05/09/2015 Inactive Protonix 40 mg tablet,delayed release RxNorm: 382752 1 Tablet(s) PO BID 03/05/2015 09/30/2015 Inactive ok to change from [address] Carlos clopidogrel 75 mg tablet RxNorm: 814225 1 Tablet(s) PO daily TAKE 1 TABLET DAILY 02/20/2015 05/19/2015 Inactive Namenda 10 mg tablet RxNorm: 974970 Tablet(s) TAKE 1 TABLET BY MOUTH TWICE DAILY. 01/22/2015 02/16/2016 Inactive amlodipine 10 mg tablet RxNorm: 873990 TAKE 1 TABLET BY MOUTH ONCE DAILY 01/14/2015 08/17/2015 Inactive donepezil 10 mg tablet RxNorm: 395149 TAKE 1 TABLET DAILY 01/0608/31/2015 Inactive Levsin 0.125 mg tablet RxNorm: 6102346 1 Tablet(s) PO QID as needed FOR ABD PAIN 11/05/2014 12/03/2014 Inactive Mobic 15 mg tablet RxNorm: 694732 1/2 Tablet(s) daily TAKE (1/2) TABLET DAILY. 10/01/2014 04/21/2015 Inactive ciprofloxacin 500 mg tablet RxNorm: 886602 1 Tablet(s) PO BID 09/27/2014 10/01/2014 Inactive Flagyl 500 mg tablet RxNorm: 568060 1 Tablet(s) PO TID 201410/03/2014 Inactive take probiotic BID donepezil 10 mg tablet RxNorm: 423276 1/2 Tablet(s) PO BID 01/05/2015 Inactive lisinopril 20 mg tablet RxNorm: 237576 TAKE 1 TABLET DAILY 04/21/2015 Inactive amlodipine 10 mg tablet RxNorm: 058586 1 Tablet(s) PO daily 12/30/2014 Inactive mirtazapine 15 mg tablet RxNorm: 569749 1 Tablet(s) PO daily 09/07/2015 Inactive donepezil 10 mg tablet RxNorm: 355787 1 Tablet(s) PO daily 09/23/2014 Inactive citalopram 10 mg tablet RxNorm: 867846 1 Tablet(s) PO daily 03/25/2015 Inactive citalopram 10 mg tablet RxNorm: 596360 1 Tablet(s) PO daily 05/201408/27/2014 Inactive citalopram 10 mg tablet RxNorm: 134052 1 Tablet(s) PO daily 05/201408/06/2014 Inactive Flagyl 500 mg tablet RxNorm: 138596 1 Tablet(s) PO TID 201408/01/2014 Inactive take probiotic BID Flagyl 500 mg tablet RxNorm: 297394 1 Tablet(s) PO TID 201408/08/2014 Inactive take probiotic BID tamsulosin ER 0.4 mg capsule,extended release 24 hr RxNorm: 627307 1 Capsule(s) PO QHS 06/06/2014 03/10/2015 Inactive TAKE AT BEDTIME escitalopram 5 mg tablet RxNorm: 094996 1 Tablet(s) PO QPM 08/06/2014 Inactive doxycycline hyclate 100 mg tablet RxNorm: 968698 1 Tablet(s) PO BID 05/31/2014 05/30/2014 Inactive doxycycline hyclate 100 mg tablet RxNorm: 278943 1 Tablet(s) PO BID 05/31/2014 06/06/2014 Inactive please deliver if not picked by 3pm Aricept 5 mg tablet RxNorm: 393074 1 Tablet(s) PO BID 201408/27/2014 Inactive losartan 50 mg tablet RxNorm: 684434 1/2 Tablet(s) PO daily 12/28/2015 Inactive clopidogrel 75 mg tablet RxNorm: 559974 1 Tablet(s) PO daily 05/26/2014 Inactive Mobic 15 mg tablet RxNorm: 407711 TAKE (1/2) TABLET DAILY. 09/30/2014 Inactive clopidogrel 75 mg tablet RxNorm: 225133 TAKE 1 TABLET DAILY 02/19/2015 Inactive Mobic 15 mg tablet RxNorm: 857674 1/2 Tablet(s) PO daily TAKE (1/2) TABLET DAILY. 05/27/2014 05/26/2014 Inactive prednisone 20 mg tablet RxNorm: 145483 1 Tablet(s) PO BID 05/2105/25/2014 Inactive albuterol sulfate 2.5 mg/0.5 mL solution for nebulization RxNorm: 459340 1 inhale INH Q4H as needed 05/21/2014 09/01/2015 Inactive prednisone 20 mg tablet RxNorm: 371873 1 Tablet(s) PO BID 05/2105/20/2014 Inactive cefdinir 300 mg capsule RxNorm: 405341 1 Capsule(s) PO BID 04/201505/26/2014 Inactive Zithromax Z-Dequan 250 mg tablet RxNorm: 164994 1 Tablet(s) PO UD 05/20/2014 05/24/2014 Inactive zpack lorazepam 0.5 mg tablet RxNorm: 640021 1/2 to 1 Tablet(s) PO Q8 PRN as needed 04/30/2014 06/05/2014 Inactive Namenda 10 mg tablet RxNorm: 632765 TAKE 1 TABLET BY MOUTH TWICE DAILY. 04/15/2014 01/21/2015 Inactive Namenda 10 mg tablet RxNorm: 172243 1 Tablet(s) PO BID 201304/14/2014 Inactive losartan 50 mg tablet RxNorm: 258416 1 Tablet(s) PO daily 201305/28/2014 Inactive Protonix 40 mg tablet,delayed release RxNorm: 166634 1 Tablet(s) PO QPM 03/21/2014 06/18/2014 Inactive ok to change from [address] Carlos fluticasone 50 mcg/actuation nasal spray,suspension RxNorm: 739617 1 [place] NASAL BID 03/04/2014 09/29/2014 Inactive Protonix 20 mg tablet,delayed release RxNorm: 201298 1 Tablet(s) PO QPM 02/08/2014 03/20/2014 Inactive fluticasone 50 mcg/actuation nasal spray,suspension RxNorm: 736038 1 [place] NASAL BID 01/30/2014 03/03/2014 Inactive fluticasone 50 mcg/actuation nasal spray,suspension RxNorm: 619410 1 [place] NASAL BID 12/24/2013 01/29/2014 Inactive fluticasone 50 mcg/actuation nasal spray,suspension RxNorm: 350724 1 [place] NASAL BID 11/20/2013 12/23/2013 Inactive doxycycline hyclate 100 mg capsule RxNorm: 6314259 1 Capsule(s) PO BID 10/08/2013 10/17/2013 Inactive doxycycline hyclate 100 mg capsule RxNorm: 2683327 capsule oral 10/08/2013 10/29/2013 Inactive fluticasone 50 mcg/actuation nasal spray,suspension RxNorm: 011049 spray, suspension nasl 10/08/2013 11/19/2013 Inactive fluticasone 50 mcg/actuation nasal spray,suspension RxNorm: 340795 1 [place] NASAL BID Nasal spray- use twice daily, one spray per nostril twice daily, after 30 minutes, rinse out nose with saline spray. 10/08/2013 10/29/2013 Inactive mirtazapine 7.5 mg tablet RxNorm: 082772 1/2 Tablet(s) PO daily 08/30/2013 08/27/2014 Inactive lorazepam 0.5 mg tablet RxNorm: 658966 1/2 Tablet(s) PO Q8 PRN 08/21/2013 04/29/2014 Inactive Aricept 5 mg tablet RxNorm: 369330 Tablet(s) PO TAKE 1 TABLET DAILY 08/21/2013 05/28/2014 Inactive Plavix 75 mg tablet RxNorm: 789901 Tablet(s) PO TAKE 1 TABLET DAILY 05/24/2013 12/04/2014 Inactive clopidogrel 75 mg tablet RxNorm: 445976 tablet oral 05/24/2013 05/26/2014 Inactive Plavix 75 mg tablet RxNorm: 154127 1 Tablet(s) PO daily 201305/23/2013 Inactive meloxicam 15 mg tablet RxNorm: 680217 tablet oral 04/26/2013 03/25/2014 Inactive Mobic 15 mg tablet RxNorm: 435230 Tablet(s) PO TAKE (1/2) TABLET DAILY. 04/26/2013 05/26/2014 Inactive Mobic 15 mg tablet RxNorm: 013444 1/2 Tablet(s) PO daily 04/25/2013 Inactive lisinopril 20 mg tablet RxNorm: 756808 1 Tablet(s) PO 201203/24/2014 Inactive finasteride 5 mg tablet RxNorm: 511389 tablet oral 03/22/2013 09/01/2015 Inactive lisinopril 10 mg tablet RxNorm: 924408 1 Tablet(s) PO daily 01/201304/03/2013 Inactive donepezil 5 mg tablet RxNorm: 320002 tablet oral 02/07/2013 12/24/2013 Inactive Influenza Virus Vaccine 0.5 mL RxNorm: IM 02/06/2013 02/06/2013 Inactive Aricept 5 mg tablet RxNorm: 300216 1 Tablet(s) PO daily 201208/04/2013 Inactive tamsulosin ER 0.4 mg capsule,extended release 24 hr RxNorm: 445403 capsule, extended release 24hr oral 12/21/2012 Inactive Plavix 75 mg tablet RxNorm: 729030 1 Tablet(s) PO daily 201205/03/2013 Inactive lorazepam 0.5 mg tablet RxNorm: 163622 1/2 Tablet(s) PO Q8 PRN 11/14/2012 08/20/2013 Inactive lisinopril 10 mg tablet RxNorm: 028933 1 Tablet(s) PO daily 06/201202/03/2013 Inactive Aricept 5 mg tablet RxNorm: 618382 1 Tablet(s) PO daily 201202/03/2013 Inactive Plavix 75 mg tablet RxNorm: 160239 1 Tablet(s) PO daily 201211/30/2012 Inactive Mobic 15 mg tablet RxNorm: 010029 1/2 Tablet(s) PO daily 04/201204/13/2013 Inactive Namenda 10 mg tablet RxNorm: 461546 1 Tablet(s) PO BID 201104/11/2014 Inactive lorazepam 0.5 mg tablet RxNorm: 424486 1/2 Tablet(s) PO Q8 PRN 02/02/2012 11/13/2012 Inactive lisinopril 10 mg tablet RxNorm: 996995 1 Tablet(s) PO daily 07/21/2012 Inactive lisinopril 10 mg tablet RxNorm: 271970 1/2 Tablet(s) PO daily 12/20/2011 01/23/2012 Inactive Aricept 5 mg tablet RxNorm: 770759 1 Tablet(s) PO daily 201108/06/2012 Inactive Mobic 15 mg tablet RxNorm: 903430 1 Tablet(s) PO daily 201103/19/2012 Inactive Bentyl 10 mg Cap RxNorm: 426810 1 Capsule(s) PO daily one pill daily and every 6 hours if needed for bowel spasms. 06/23/2011 03/20/2012 Inactive amlodipine 5 mg Tab RxNorm: 615236 2 Tablet(s) PO daily 201012/08/2011 Inactive ZOSTAVAX 19,400 unit Sub-Q Soln RxNorm: 3438907 SQ 02/25/2011 02/25/2011 Inactive Pneumovax 23 25 mcg/0.5 mL Injection RxNorm: 539010 Milliliter(s) Inj 02/16/2011 02/16/2011 Inactive Influenza Virus Vaccine 0.5 mL RxNorm: IM 02/09/2011 02/09/2011 Inactive Namenda 10 mg tablet RxNorm: 505028 1 Tablet(s) PO BID 201002/21/2012 Inactive dicyclomine 10 mg capsule RxNorm: 021279 capsule oral 201010/29/2013 Inactive Namenda 5 mg tablet RxNorm: 868179 tablet oral 01/20/2011 12/24/2013 Inactive dicyclomine 20 mg tablet RxNorm: 216096 tablet oral 01/15/2011 10/29/2013 Inactive Flagyl 500 mg Tab RxNorm: 732773 1 Tablet(s) PO TID 201001/06/2011 Inactive Cipro 500 mg Tab RxNorm: 302803 1 Tablet(s) PO BID 201006/23/2011 Inactive Cipro 500 mg Tab RxNorm: 148362 1 Tablet(s) PO BID 201001/06/2011 Inactive Flagyl 500 mg Tab RxNorm: 463445 1 Tablet(s) PO TID 201006/23/2011 Inactive metronidazole 500 mg tablet RxNorm: 041700 tablet oral 201012/24/2013 Inactive sulfamethoxazole 400 mg-trimethoprim 80 mg tablet RxNorm: 507339 tablet oral 12/24/2010 03/10/2015 Inactive mirtazapine 15 mg tablet RxNorm: 195658 tablet oral 11/14/2010 12/24/2013 Inactive lisinopril 10 mg tablet RxNorm: 075177 tablet oral 11/14/2010 12/24/2013 Inactive doxycycline hyclate 100 mg tablet RxNorm: 144518 tablet oral 12/24/2013 Inactive diphenoxylate-atropine 2.5 mg-0.025 mg tablet RxNorm: 0685995 tablet oral 11/03/2010 10/29/2013 Inactive ciprofloxacin 500 mg tablet RxNorm: 148007 tablet oral 201010/29/2013 Inactive aspirin 81 mg Cap, Delayed Release RxNorm: 306257 1 Capsule(s) PO daily No Start Date Active Vitamin D 1,000 unit Tab RxNorm: 938932 1 Tablet(s) PO daily No Start Date Active Senior Vitamin Tab RxNorm: 1 Tablet(s) PO daily No Start Date Active sulfamethoxazole 500 mg Tab RxNorm: 242827 1/2 Tablet(s) PO daily No Start Date 12/24/2013 Inactive Plavix 75 mg Tab RxNorm: 869251 1 Tablet(s) PO daily No Start Date 01/26/2011 Inactive hydrocodone 5 mg-acetaminophen 325 mg tablet RxNorm: 275283 1 Tablet(s) PO Q6 as needed No Start Date 06/05/2014 Inactive Proscar 5 mg Tab RxNorm: 949357 1 Tablet(s) PO daily No Start Date 09/01/2015 Inactive Plavix 75 mg tablet RxNorm: 220884 1 Tablet(s) PO daily No Start Date 07/03/2012 Inactive albuterol sulfate 2.5 mg/0.5 mL solution for nebulization RxNorm: 994582 1 inhale INH Q4H as needed No Start Date 2014 Inactive amlodipine 5 mg Tab RxNorm: 304531 1 Tablet(s) PO daily No Start Date 03/07/2011 Inactive Namenda 5 mg Tab RxNorm: 144915 1 Tablet(s) PO daily No Start Date 06/23/2011 Inactive Allergy Relief (cetirizine) oral RxNorm: 550743 oral No Start Date 12/19/2016 Inactive fluocinonide 0.05 % Ointment RxNorm: 205809 1 TOP BID PRN No Start Date 12/24/2013 Inactive amlodipine 5 mg tablet RxNorm: 088653 1 Tablet(s) PO daily No Start Date 09/01/2014 Inactive lisinopril Oral RxNorm : Oral No Start Date 12/08/2011 Inactive simvastatin 20 mg Tab RxNorm: 593725 1 Tablet(s) PO daily No Start Date 06/06/2014 Inactive Bentyl 20 mg Tab RxNorm: 288623 1 Tablet(s) PO Q6 PRN No Start Date 06/23/[address] Quintero Bentyl 10 mg Cap RxNorm: 848689 1 Capsule(s) PO BID No Start Date 06/22/2011 Inactive Plavix 75 mg Tab RxNorm: 208197 1 Tablet(s) PO every other day No Start Date 08/24/2011 Inactive lorazepam 0.5 mg tablet RxNorm: 174029 1/2 Tablet(s) PO Q8 PRN No Start Date 02/01/2012 Inactive lisinopril 10 mg tablet RxNorm: 283128 1 Tablet(s) PO daily No Start Date 12/19/2011 Inactive Flomax 0.4 mg 24 hr Cap RxNorm: 934154 1 Capsule(s) PO daily No Start Date 05/28/2014 Inactive Aricept 5 mg Tab RxNorm: 854513 1 Tablet(s) PO daily No Start Date 07/13/2011 Inactive Levsin 0.125 mg tablet RxNorm: 3519997 1 Tablet(s) PO QID as needed FOR ABD PAIN No Start Date 11/04/2014 Inactive mirtazapine 7.5 mg tablet RxNorm: 342835 1/2 Tablet(s) PO daily No Start Date 08/29/2013 Inactive Mobic 15 mg Tab RxNorm : 079207 1 Tablet(s) PO daily No Start Date 07/13/2011 Inactive Medication Administered Medication Codes Instructions Start Date Status Kenalog 40 mg/mL suspension for injection RxNorm: 8527162 Milliliter 11/25/2016 No longer Active Influenza Virus Vaccine 0.5 mL RxNorm: 02/06/2013 No longer Active ZOSTAVAX 19,400 unit Sub-Q Soln RxNorm: 5769643 02/25/2011 No longer Active Pneumovax 23 25 mcg/0.5 mL Injection RxNorm: 324660 Milliliter 02/16/2011 No longer Active Influenza Virus Vaccine 0.5 mL RxNorm: 02/09/2011 No longer Active Immunizations Vaccine Codes Date Status Influenza CVX: 141 01/25/2017 completed Pneumococcal (Adult) CVX: 133 05/06/2015 completed Influenza CVX: 141 02/19/2015 completed Influenza CVX: 141 03/26/2014 completed Influenza CVX: 141 02/06/2013 completed Influenza CVX: 141 02/21/2012 completed DTaP CVX: 20 02/27/2011 completed Pneumococcal (Adult) CVX: 33 02/16/2011 completed Influenza CVX: 141 02/09/2011 completed Pneumococcal (Adult) Unknown 02/05/2009 completed Pneumococcal (Adult) Unknown 02/05/2009 completed Assessments Condition Codes Effective Dates Essential (primary) hypertension ICD-10: I10 ICD-9: 401.1 03/21/2017 Other allergic rhinitis ICD-10: J30.89 ICD-9: 477.8 03/08/2017 Other hypotension ICD-10: I95.89 ICD-9: 458.8 01/25/2017 Encounter for immunization ICD-10: Z23 ICD-9: V04.81 01/25/2017 Essential (primary) hypertension ICD-10: I10 ICD-9: 401.9 12/20/2016 Acute recurrent maxillary sinusitis ICD-10: J01.01 ICD-9: 461.0 12/20/2016 Acute recurrent ethmoidal sinusitis ICD-10: J01.21 ICD-9: 461.2 12/01/2016 Cough ICD-10: R05 ICD-9: 786.2 11/25/2016 Bronchitis, not specified as acute or chronic ICD-10: J40 ICD-9: 490 11/25/2016 Candidal esophagitis ICD-10: B37.81 ICD-9: 112.84 11/18/2016 Mild cognitive impairment, so stated ICD-10: G31.84 ICD-9: 331.83 08/23/2016 Olecranon bursitis, right elbow ICD-10: M70.21 ICD-9: 726.33 02/17/2016 Hypo-osmolality and hyponatremia ICD-10: E87.1 ICD-9: 276.1 02/05/2016 Generalized abdominal tenderness ICD-10: R10.817 ICD-9: 789.67 01/26/2016 Mixed hyperlipidemia ICD-10: E78.2 ICD-9: 272.4 05/06/2015 Encounter for immunization ICD-10: Z23 ICD-9: V03.9 05/06/2015 Generalized anxiety disorder ICD-10: F41.1 ICD-9: 300.02 05/06/2015 Gastro-esophageal reflux disease without esophagitis ICD-10 : K21.9 ICD-9: 530.81 03/05/2015 Major depressive disorder, single episode, 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 ICD-9: 311 03/05/2015 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 IRRITABLE COLON ICD-9: 564.1 12/04/2014 GENERALIZED ANXIETY DISEASE ICD-9: 300.02 12/04/2014 ESSENTIAL HYPERTENSION ICD-9: 401.9 12/04 Abdominal pain ICD-9: 789.00 09/24/2014 Hyponatremia ICD-9: 276.1 09/24/2014 Osteoarthritis ICD-9: 715.90 09/09/2014 Depression ICD-9: 311 07/26/2014 Urinary frequency ICD-9: 788.41 2014 Dizziness ICD-9: 780.4 06/06/2014 NOCTURIA ICD-9: 788.43 05/23/2014 ALLERGIC RHINITIS ICD-9: 477.9 2014 Pneumonia ICD-9: 486 05/20/2014 COUGH ICD-9: 786.2 05/20/2014 Nasal congestion ICD-9: 478.19 2013 ABNORMAL LOSS OF WEIGHT ICD-9: 783.21 MALAISE AND FATIGUE ICD-9: 780.79 2013 Acute maxillary sinusitis ICD-9: 461.0 Coronary artery disease ICD-9: 414.00 02/2014 Encounter for long-term (current) use of other medications ICD-9: V58.69 02/19/2013 Leukopenia ICD-9: 288.50 02/19/2013 VACCIN FOR INFLUENZA ICD-9: V04.81 2012 HYPERLIPIDEMIA ICD-9: 272.4 06/19/2012 BPH W URINARY OBS/LUTS ICD-9: 600.01 Lump in the groin ICD-9: 789.30 2011 DIVERTICULOSIS, COLON ICD-9: 562.10 04/19 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 04/19/2011 Laceration of finger, index ICD-9: 883.0 03/08/2011 Need for shingles vaccine ICD-9: V04.89 02/25/2011 VACCIN STREP PNEUMONIAE ICD-9: V03.82 03/2011 HYDROCELE ICD-9: 603.9 02/01/2011 Bruising ICD-9: 924.9 02/01/2011 Testicular pain ICD-9: 608.9 01/27/2011 Arm bruise ICD-9: 923.9 01/26/2011 Diarrhea ICD-9: 787.91 01/15/2011 Elevated liver function tests ICD-9: 790.6 01/06/2011 Reason For Visit Reason For Visit Effective Dates Notes hypertension 03/21/2017 earache 03/08/2017 cough 01/25/2017 cough 12/20/2016 cough 12/01/2016 cough 11/25/2016 sinus congestion 11/18/2016 hypertension 08/23/2016 hypertension 04/26/2016 edema 02/17/2016 edema 02/09/2016 edema 02/03/2016 muscle weakness 01/26/2016 cough 01/21/2016 hypertension 12/29/2015 hypertension 09/02/2015 hypertension 05/06/2015 gastroesophageal reflux 03/05/2015 vaccination against influenza 02/19/2015 abdominal pain 12/04/2014 abdominal pain 09/24/2014 anxiety 09/09/2014 gas and bloating 07/26/2014 Hospital Follow Up 07/10/2014 vertigo 06/06/2014 constantly- sitting/ standing/laying- even while eating. insomnia 05/29/2014 intermittent, last time this am cough 05/20/2014 vaccination against influenza 03/26/2014 cough 03/25/2014 cough 02/08/2014 left ear Weight follow up 12/24/2013 Weight follow up 11/20/2013 weight loss 10/30/2013 cough 10/08/2013 hypertension 06/18/2013 hypertension 04/04/2013 hypertension 02/19/2013 vaccination against influenza 02/06/2013 hypertension 10/16/2012 hypertension 06/19/2012 hypertension 03/20/2012 hypertension 01/24/2012 hypertension 12/20/2011 abnormal bleeding and bruising 12/09/2011 hypertension 08/25/2011 hypertension 06/23/2011 blood pressure followup 04/19/2011 blood pressure followup 03/23/2011 Dr. Merlos started him on lisinopril 03/18/11 hypertension 03/08/2011 hypertension 03/01/2011 abnormal bleeding and bruising 02/01/2011 testicular pain 01/27/2011 skin lesion 01/26/2011 urinary retention/hesitancy 01/15/2011 diarrhea 01/06/2011 Results Observation Observation Code Item Item Code Result Date Lipid Ord30 CHOL 134 mg/dL 04/11/2017 Lipid Ord30 HDL 63.0 mg/dl 04/11/2017 Lipid Ord30 TRIG 45 mg/dL 04/11/2017 Lipid Ord30 LDL 62 mg/dL 04/11/2017 Lipid Ord30 C/HDL 2.1 Ratio 04/11/2017 Tsh Ord6 hTSH II 2.07 uIU/mL 04/11/2017 Body Fluid Crystals Source RIGHT ELBOW 02/18/2016 Body Fluid Crystals [id number] CRYSTALS, BODY FLUID 2015 Uric Acid Body Fluid [id number] URIC ACID- FLUID 4.3 mg/dL 2015 Metabolic Ord15 NA 128 mEq/L 02/05/2016 Metabolic Ord15 K 4.8 mEq/L 02/05/2016 Metabolic Ord15 CL 95 mEq/L 02/05/2016 Metabolic Ord15 CO2 32.0 mEq/L 02/05/2016 Metabolic Ord15 GLUCOSE 112 mg/dL 02/05/2016 Metabolic Ord15 BUN 22 mg/dL 02/05/2016 Metabolic Ord15 Creat 1.1 mg/dL 02/05/2016 Metabolic Ord15 B/C Ratio 20.4 Ratio 02/05/2016 Metabolic Ord15 eGFR 69 ml/min/1.73m2 02/05/2016 Metabolic Ord15 Osmo 261 mOsmo 02/05/2016 Metabolic Ord15 ANION GAP 6 02/05/2016 Metabolic Ord15 CALCIUM 9.1 mg/dL 02/05/2016 Lipid Ord30 CHOL 134 mg/dL 10/08/2015 Lipid Ord30 HDL 56.0 mg/dl 10/08/2015 Lipid Ord30 TRIG 87 mg/dL 10/08/2015 Lipid Ord30 LDL 61 mg/dL 10/08/2015 Lipid Ord30 C/HDL 2.4 Ratio 10/08/2015 Comp Metabolic Sla014 NA 129 mEq/L 10/08/2015 Comp Metabolic Nqq064 K 4.7 mEq/L 10/08/2015 Comp Metabolic Ztv912 CL 98 mEq/L 10/08/2015 Comp Metabolic Ife752 CO2 28.0 mEq/L 10/08/2015 Comp Metabolic Uqt852 ANION GAP 8 10/08/2015 Comp Metabolic Ois342 GLUCOSE 84 mg/dL 10/08/2015 Comp Metabolic Woo639 Creat 1.3 mg/dL 10/08/2015 Comp Metabolic Esl201 eGFR 56 ml/min/1.73m2 10/08/2015 Comp Metabolic Lhj934 BUN 23 mg/dL 10/08/2015 Comp Metabolic Llq444 B/C Ratio 17.8 Ratio 10/08/2015 Comp Metabolic Kjt851 CALCIUM 9.3 mg/dL 10/08/2015 Comp Metabolic Shw074 ALK PHOS 68 U/L 10/08/2015 Comp Metabolic Fbk423 AST(SGOT) 24 U/L 10/08/2015 Comp Metabolic Brz809 ALT(SGPT) 15 U/L 10/08/2015 Comp Metabolic Cna397 BILI T 0.5 mg/dL 10/08/2015 Comp Metabolic Iyd245 ALBUMIN 4.0 g/dL 10/08/2015 Comp Metabolic Vii738 TPRO 5.9 g/dL 10/08/2015 Comp Metabolic Rci704 GLOB 1.9 g/dL 10/08/2015 Comp Metabolic Dyz478 A/G Ratio 2.1 Ratio 10/08/2015 Comp Metabolic Aol422 Osmo 262 mOsmo 10/08/2015 Lipid Ord30 CHOL 136 mg/dL 05/07/2015 Lipid Ord30 HDL 58.0 mg/dl 05/07/2015 Lipid Ord30 TRIG 78 mg/dL 05/07/2015 Lipid Ord30 LDL 62 mg/dL 05/07/2015 Lipid Ord30 C/HDL 2.3 Ratio 05/07/2015 Cbc With Differential Ord2 WBC 4.3 K/uL 05/07/2015 Cbc With Differential Ord2 LYM 1.1 K/uL 05/07/2015 Cbc With Differential Ord2 LYM% 24.5 % 05/07/2015 Cbc With Differential Ord2 NEUT/GRAN 2.9 K/uL 05/07/2015 Cbc With Differential Ord2 NEUT/GRAN % 67.1 % 05/07/2015 Cbc With Differential Ord2 MID 0.4 K/uL 05/07/2015 Cbc With Differential Ord2 MID% 8.4 % 05/07/2015 Cbc With Differential Ord2 RBC 4.24 M/uL 05/07/2015 Cbc With Differential Ord2 HGB 12.2 g/dL 05/07/2015 Cbc With Differential Ord2 HCT 39.1 % 05/07/2015 Cbc With Differential Ord2 MCV 92 fL 05/07/2015 Cbc With Differential Ord2 MCH 29 pg 05/07/2015 Cbc With Differential Ord2 MCHC 31 g/dL 05/07/2015 Cbc With Differential Ord2 PLT 164 K/uL 05/07/2015 Cbc With Differential Ord2 RDW 16.2 % 05/07/2015 Comp Metabolic Slj361 NA 132 mEq/L 05/07/2015 Comp Metabolic Flp140 K 4.4 mEq/L 05/07/2015 Comp Metabolic Jzw777 CL 97 mEq/L 05/07/2015 Comp Metabolic Fxc010 CO2 30.0 mEq/L 05/07/2015 Comp Metabolic Xqj272 ANION GAP 9 05/07/2015 Comp Metabolic Vpn432 GLUCOSE 78 mg/dL 05/07/2015 Comp Metabolic Vbg645 Creat 1.2 mg/dL 05/07/2015 Comp Metabolic Lod051 eGFR 60 ml/min/1.73m2 05/07/2015 Comp Metabolic Tjo098 BUN 25 mg/dL 05/07/2015 Comp Metabolic Vxm134 B/C Ratio 20.3 Ratio 05/07/2015 Comp Metabolic Jhb328 CALCIUM 9.6 mg/dL 05/07/2015 Comp Metabolic Ath860 ALK PHOS 70 U/L 05/07/2015 Comp Metabolic Zqm747 AST(SGOT) 27 U/L 05/07/2015 Comp Metabolic Vif604 ALT(SGPT) 20 U/L 05/07/2015 Comp Metabolic Wvq552 BILI T 0.4 mg/dL 05/07/2015 Comp Metabolic Rci332 ALBUMIN 4.0 g/dL 05/07/2015 Comp Metabolic Pdv220 TPRO 5.8 g/dL 05/07/2015 Comp Metabolic Fdw718 GLOB 1.8 g/dL 05/07/2015 Comp Metabolic Jme905 A/G Ratio 2.3 Ratio 05/07/2015 Comp Metabolic Dne907 Osmo 268 mOsmo 05/07/2015 Tsh Ord6 hTSH II 4.07 uIU/mL 05/07/2015 B12 Ngi705 B12 1011.00 pg/ml 12/10/2014 Cbc With Differential Ord2 WBC 3.3 K/uL 12/10/2014 Cbc With Differential Ord2 LYM 1.1 K/uL 12/10/2014 Cbc With Differential Ord2 LYM% 34.5 % 12/10/2014 Cbc With Differential Ord2 NEUT/GRAN 1.9 K/uL 12/10/2014 Cbc With Differential Ord2 NEUT/GRAN % 58.3 % 12/10/2014 Cbc With Differential Ord2 MID 0.2 K/uL 12/10/2014 Cbc With Differential Ord2 MID% 7.2 % 12/10/2014 Cbc With Differential Ord2 RBC 4.18 M/uL 12/10/2014 Cbc With Differential Ord2 HGB 13.1 g/dL 12/10/2014 Cbc With Differential Ord2 HCT 41.0 % 12/10/2014 Cbc With Differential Ord2 MCV 98 fL 12/10/2014 Cbc With Differential Ord2 MCH 31 pg 12/10/2014 Cbc With Differential Ord2 MCHC 32 g/dL 12/10/2014 Cbc With Differential Ord2 PLT 157 K/uL 12/10/2014 Cbc With Differential Ord2 RDW 14.3 % 12/10/2014 Tsh Ord6 hTSH II 1.99 uIU/mL 12/10/2014 Lipid Ord30 CHOL 177 mg/dL 12/10/2014 Lipid Ord30 HDL 53.0 mg/dl 12/10/2014 Lipid Ord30 TRIG 76 mg/dL 12/10/2014 Lipid Ord30 LDL 109 mg/dL 12/10/2014 Lipid Ord30 C/HDL 3.3 Ratio 12/10/2014 Comp Metabolic Qml172 NA 134 mEq/L 12/10/2014 Comp Metabolic Jfc962 K 4.8 mEq/L 12/10/2014 Comp Metabolic Sjv832 CL 101 mEq/L 12/10/2014 Comp Metabolic Ofa227 CO2 30.0 mEq/L 12/10/2014 Comp Metabolic Zuj748 ANION GAP 8 12/10/2014 Comp Metabolic Dlf058 GLUCOSE 85 mg/dL 12/10/2014 Comp Metabolic Hkl721 Creat 1.2 mg/dL 12/10/2014 Comp Metabolic Ppd151 eGFR 65 ml/min/1.73m2 12/10/2014 Comp Metabolic Env457 BUN 25 mg/dL 12/10/2014 Comp Metabolic Zyi456 B/C Ratio 21.7 Ratio 12/10/2014 Comp Metabolic Tpt248 CALCIUM 9.5 mg/dL 12/10/2014 Comp Metabolic Kjd634 ALK PHOS 76 U/L 12/10/2014 Comp Metabolic Zrk460 AST(SGOT) 27 U/L 12/10/2014 Comp Metabolic Crl162 ALT(SGPT) 18 U/L 12/10/2014 Comp Metabolic Ymr125 BILI T 0.5 mg/dL 12/10/2014 Comp Metabolic Uwn269 ALBUMIN 4.1 g/dL 12/10/2014 Comp Metabolic Buk933 TPRO 5.7 g/dL 12/10/2014 Comp Metabolic Mrb582 GLOB 1.6 g/dL 12/10/2014 Comp Metabolic Kaj966 A/G Ratio 2.6 Ratio 12/10/2014 Comp Metabolic Ydt823 Osmo 272 mOsmo 12/10/2014 CBC 3005249 WBC 4.1 10e9/L 02/19/2013 CBC 7721483 RBC 4.39 10e12/L 02/19/2013 CBC 8406120 HGB 14.1 g/dL 02/19/2013 CBC 4723426 HCT DET 41.0 % 02/19/2013 CBC 0395810 MCV 93.4 fL 02/19/2013 CBC 9040500 MCH 32.1 pg 02/19/2013 CBC 9869895 MCHC 34.4 g/dL 02/19/2013 CBC 2390871 PLT 151 10e9/L 02/19/2013 CBC 9654853 MPV 11.8 fL 02/19/2013 CBC 9190155 YOVANNY % 63.2 % 02/19/2013 CBC 6865691 LY % 22.9 % 02/19/2013 CBC 0212760 MON % 11.5 % 02/19/2013 CBC 6066220 EOS % 2.2 % 02/19/2013 CBC 6721816 BASO % 0.2 % 02/19/2013 CBC 8541301 RDW 13.8 % 02/19/2013 CBC 6732263 ABS YOVANNY 2.59 10e9/L 02/19/2013 CBC 5602510 ABS LYMPH 0.94 10e9/L 02/19/2013 CBC 6023367 ABS MONO 0.47 10e9/L 02/19/2013 CBC 8134897 ABS EOS 0.09 10e9/L 02/19/2013 CBC 6401227 ABS BASO 0.01 10e9/L 02/19/2013 CBC 3289985 RDW-SD 46.0 fL 02/19/2013 TSH 5570479 TSH 2.094 uIU/ML 02/19/2013 CHEM 14 8174351 AST 30 U/L 02/19/2013 CHEM 14 5112378 ALT 19 IU/L 02/19/2013 CHEM 14 4609534 BUN 21 MG/DL 02/19/2013 CHEM 14 1014526 ALBUMIN 4.4 GM/DL 02/19/2013 CHEM 14 9567359 CHLORIDE 94 MMOL/L 02/19/2013 CHEM 14 5930969 BILI TOT 0.5 MG/DL 02/19/2013 CHEM 14 4022656 ALK PHOS 75 U/L 02/19/2013 CHEM 14 4839768 SODIUM 133 MMOL/L 02/19/2013 CHEM 14 9345823 CREATININE 1.07 MG/DL 02/19/2013 CHEM 14 4859513 CALCIUM 9.6 MG/DL 02/19/2013 CHEM 14 6853568 POTASSIUM 4.6 MMOL/L 02/19/2013 CHEM 14 3097913 PROT TOT 6.1 GM/DL 02/19/2013 CHEM 14 9992962 GLUCOSE 94 MG/DL 02/19/2013 CHEM 14 1726863 BICARB 31 MMOL/L 02/19/2013 CHEM 14 3513132 ANION GAP 8 MEQ/L 02/19/2013 GFR CALC 9108848 GFR AA >60 ML/MIN 02/19/2013 GFR CALC 1876717 GFR NON-AA >60 ML/MIN 02/19/2013 FREE T4 7335237 FREE T4 1.18 NG/DL 02/19/2013 UA 96816 Specific [place] 1.015 DateTime(Free Text in Apr ) UA 38453 PH 6 DateTime(Free Text in Apr) UA 41387 GLUCOSE neg DateTime(Free Text in Aprima) UA 49741 Protein neg DateTime(Free Text in Apr) UA 99402 Blood neg DateTime(Free Text in Aprima) UA 73617 Bilirubin neg DateTime(Free Text in Aprima) UA 44427 Ketones neg DateTime(Free Text in Aprima) UA 71806 Urobilinogen neg DateTime(Free Text in Aprima) UA 93350 Nitrite neg DateTime(Free Text in ) UA 38825 Leukocytes neg DateTime(Free Text in ) Review of Systems System Result Effective Dates Constitutional No recent illness 2016 Constitutional No anorexia 03/21/2017 Constitutional No night sweats 2016 Constitutional No chills 03/21/2017 Constitutional No diaphoresis 03/21/2017 Constitutional No fatigue 03/21/2017 Constitutional No fever 03/21/2017 Constitutional No insomnia 03/21/2017 Eyes No eye discharge 03/21/2017 Eyes No eye erythema 03/21/2017 Ears/Nose/Throat/Neck No dizziness 2016 Ears/Nose/Throat/Neck No headache 2016 Cardiovascular No chest pain/pressure Cardiovascular No dyspnea 03/21/2017 Cardiovascular No edema 03/21/2017 Respiratory No productive sputum 2016 Respiratory No chest congestion 2016 Gastrointestinal abdominal pain 2016 Gastrointestinal No constipation 2016 Gastrointestinal No diarrhea 03/21/2017 Gastrointestinal No nausea 03/21/2017 Gastrointestinal No vomiting 03/21/2017 Genitourinary/Nephrology No dysuria 03/21 Genitourinary/Nephrology No urinary urgency 03/21/2017 Musculoskeletal No joint complaint 2016 Dermatologic No rash 03/21/2017 Dermatologic No sores 03/21/2017 Neurologic No alteration of consciousness 03/21/2017 Psychiatric anxiety 03/21/2017 Constitutional No recent illness 2016 Constitutional No anorexia 03/08/2017 Constitutional No night sweats 2016 Constitutional No chills 03/08/2017 Constitutional No diaphoresis 03/08/2017 Constitutional No fatigue 03/08/2017 Constitutional No fever 03/08/2017 Constitutional No insomnia 03/08/2017 Constitutional No malaise 03/08/2017 Constitutional No weight loss 03/08/2017 Constitutional No weight gain 03/08/2017 Eyes No eye discharge 03/08/2017 Eyes No eye erythema 03/08/2017 Ears/Nose/Throat/Neck No headache 2016 Ears/Nose/Throat/Neck nasal allergies Ears/Nose/Throat/Neck No nasal discharge 03/08/2017 Ears/Nose/Throat/Neck otalgia 03/08/2017 Ears/Nose/Throat/Neck No sinus congestion 03/08/2017 Ears/Nose/Throat/Neck No sore throat Cardiovascular No chest pain/pressure Respiratory No cough 03/08/2017 Gastrointestinal No abdominal pain 2016 Dermatologic No rash 03/08/2017 Neurologic No alteration of consciousness 03/08/2017 Constitutional No recent illness 2016 Constitutional No anorexia 01/25/2017 Constitutional No night sweats 2016 Constitutional No chills 01/25/2017 Constitutional No diaphoresis 01/25/2017 Constitutional No fatigue 01/25/2017 Constitutional No fever 01/25/2017 Constitutional No insomnia 01/25/2017 Eyes No eye discharge 01/25/2017 Eyes No eye erythema 01/25/2017 Ears/Nose/Throat/Neck No dizziness 2016 Ears/Nose/Throat/Neck No headache 2016 Cardiovascular No chest pain/pressure Cardiovascular No dyspnea 01/25/2017 Cardiovascular No edema 01/25/2017 Respiratory No productive sputum 2016 Respiratory No chest congestion 2016 Gastrointestinal abdominal pain 2016 Gastrointestinal No constipation 2016 Gastrointestinal No diarrhea 01/25/2017 Gastrointestinal gas and bloating 2016 Gastrointestinal No nausea 01/25/2017 Gastrointestinal No vomiting 01/25/2017 Genitourinary/Nephrology No dysuria 01/25 Genitourinary/Nephrology No urinary urgency 01/25/2017 Musculoskeletal No joint complaint 2016 Dermatologic No rash 01/25/2017 Dermatologic No sores 01/25/2017 Neurologic No alteration of consciousness 01/25/2017 Psychiatric anxiety 01/25/2017 Constitutional recent illness 12/20/2016 Constitutional fatigue 12/20/2016 Ears/Nose/Throat/Neck nasal allergies Ears/Nose/Throat/Neck nasal discharge Respiratory chest congestion 12/20/2016 Respiratory cough 12/20/2016 Psychiatric anxiety 12/20/2016 Constitutional No chills 12/20/2016 Constitutional No diaphoresis 12/20/2016 Constitutional No fever 12/20/2016 Constitutional No malaise 12/20/2016 Eyes No eye discharge 12/20/2016 Eyes No eye erythema 12/20/2016 Cardiovascular No chest pain/pressure Cardiovascular No dyspnea 12/20/2016 Respiratory No productive sputum 2016 Respiratory No dyspnea 12/20/2016 Gastrointestinal No abdominal pain 2016 Gastrointestinal No constipation 2016 Gastrointestinal No diarrhea 12/20/2016 Gastrointestinal No nausea 12/20/2016 Gastrointestinal No vomiting 12/20/2016 Musculoskeletal No joint complaint 2016 Dermatologic No rash 12/20/2016 Neurologic No alteration of consciousness 12/20/2016 Neurologic No mental status change 2016 Respiratory chest congestion 12/01/2016 Respiratory cough 12/01/2016 Constitutional recent illness 12/01/2016 Constitutional No chills 12/01/2016 Constitutional No diaphoresis 12/01/2016 Constitutional fatigue 12/01/2016 Constitutional No fever 12/01/2016 Constitutional No malaise 12/01/2016 Eyes No eye discharge 12/01/2016 Eyes No eye erythema 12/01/2016 Ears/Nose/Throat/Neck nasal allergies Ears/Nose/Throat/Neck nasal discharge Cardiovascular No chest pain/pressure Cardiovascular No dyspnea 12/01/2016 Respiratory No productive sputum 2016 Respiratory No dyspnea 12/01/2016 Gastrointestinal No abdominal pain 2016 Gastrointestinal No constipation 2016 Gastrointestinal No diarrhea 12/01/2016 Gastrointestinal No nausea 12/01/2016 Gastrointestinal No vomiting 12/01/2016 Musculoskeletal No joint complaint 2016 Dermatologic No rash 12/01/2016 Neurologic No alteration of consciousness 12/01/2016 Neurologic No mental status change 2016 Psychiatric anxiety 12/01/2016 Constitutional recent illness 11/25/2016 Constitutional No chills 11/25/2016 Constitutional No diaphoresis 11/25/2016 Constitutional fatigue 11/25/2016 Constitutional No fever 11/25/2016 Constitutional No malaise 11/25/2016 Eyes No eye discharge 11/25/2016 Eyes No eye erythema 11/25/2016 Ears/Nose/Throat/Neck nasal allergies Ears/Nose/Throat/Neck nasal discharge Cardiovascular No chest pain/pressure Cardiovascular No dyspnea 11/25/2016 Respiratory No productive sputum 2016 Respiratory chest congestion 11/25/2016 Respiratory cough 11/25/2016 Respiratory No dyspnea 11/25/2016 Gastrointestinal No abdominal pain 2016 Gastrointestinal No constipation 2016 Gastrointestinal No diarrhea 11/25/2016 Gastrointestinal No nausea 11/25/2016 Gastrointestinal No vomiting 11/25/2016 Musculoskeletal No joint complaint 2016 Dermatologic No rash 11/25/2016 Neurologic No alteration of consciousness 11/25/2016 Neurologic No mental status change 2016 Psychiatric anxiety 11/25/2016 Constitutional No chills 11/18/2016 Constitutional No diaphoresis 11/18/2016 Constitutional fatigue 11/18/2016 Constitutional No fever 11/18/2016 Constitutional No malaise 11/18/2016 Eyes No eye discharge 11/18/2016 Eyes No eye erythema 11/18/2016 Ears/Nose/Throat/Neck nasal allergies Ears/Nose/Throat/Neck nasal discharge Cardiovascular No chest pain/pressure Cardiovascular No dyspnea 11/18/2016 Respiratory No productive sputum 2016 Respiratory chest congestion 11/18/2016 Respiratory cough 11/18/2016 Respiratory No dyspnea 11/18/2016 Gastrointestinal No abdominal pain 2016 Gastrointestinal No constipation 2016 Gastrointestinal No diarrhea 11/18/2016 Gastrointestinal No nausea 11/18/2016 Gastrointestinal No vomiting 11/18/2016 Musculoskeletal No joint complaint 2016 Dermatologic No rash 11/18/2016 Neurologic No alteration of consciousness 11/18/2016 Neurologic No mental status change 2016 Psychiatric anxiety 11/18/2016 Constitutional recent illness 11/18/2016 Constitutional No recent illness 2016 Constitutional No anorexia 08/23/2016 Constitutional No night sweats 2016 Constitutional No chills 08/23/2016 Constitutional No diaphoresis 08/23/2016 Constitutional No fatigue 08/23/2016 Constitutional No fever 08/23/2016 Constitutional No insomnia 08/23/2016 Eyes No eye discharge 08/23/2016 Eyes No eye erythema 08/23/2016 Ears/Nose/Throat/Neck No dizziness 2016 Ears/Nose/Throat/Neck No headache 2016 Cardiovascular No chest pain/pressure Cardiovascular No dyspnea 08/23/2016 Cardiovascular No edema 08/23/2016 Respiratory No productive sputum 2016 Respiratory No chest congestion 2016 Gastrointestinal abdominal pain 2016 Gastrointestinal No constipation 2016 Gastrointestinal No diarrhea 08/23/2016 Gastrointestinal No nausea 08/23/2016 Gastrointestinal No vomiting 08/23/2016 Genitourinary/Nephrology No dysuria 08/23 Genitourinary/Nephrology No urinary urgency 08/23/2016 Musculoskeletal No joint complaint 2016 Dermatologic pigmentation change 2016 Dermatologic No rash 08/23/2016 Dermatologic No sores 08/23/2016 Neurologic No alteration of consciousness 08/23/2016 Neurologic memory loss 08/23/2016 Psychiatric anxiety 08/23/2016 Constitutional No recent illness 2015 Constitutional No anorexia 04/26/2016 Constitutional No night sweats 2015 Constitutional No chills 04/26/2016 Constitutional No diaphoresis 04/26/2016 Constitutional No fatigue 04/26/2016 Constitutional No fever 04/26/2016 Constitutional No insomnia 04/26/2016 Eyes No eye discharge 04/26/2016 Eyes No eye erythema 04/26/2016 Ears/Nose/Throat/Neck No dizziness 2015 Ears/Nose/Throat/Neck No headache 2015 Cardiovascular No chest pain/pressure Cardiovascular No dyspnea 04/26/2016 Cardiovascular No edema 04/26/2016 Respiratory No productive sputum 2015 Respiratory No chest congestion 2015 Gastrointestinal No constipation 2015 Gastrointestinal No diarrhea 04/26/2016 Gastrointestinal No nausea 04/26/2016 Gastrointestinal No vomiting 04/26/2016 Genitourinary/Nephrology No dysuria 04/26 Genitourinary/Nephrology No urinary urgency 04/26/2016 Musculoskeletal No joint complaint 2015 Dermatologic No rash 04/26/2016 Dermatologic No sores 04/26/2016 Neurologic No alteration of consciousness 04/26/2016 Neurologic memory loss 04/26/2016 Psychiatric anxiety 04/26/2016 Dermatologic pigmentation change 2015 Gastrointestinal abdominal pain 2015 Constitutional No recent illness 2015 Constitutional No anorexia 02/17/2016 Constitutional No night sweats 2015 Constitutional No chills 02/17/2016 Constitutional No diaphoresis 02/17/2016 Constitutional No fatigue 02/17/2016 Constitutional No fever 02/17/2016 Constitutional No insomnia 02/17/2016 Constitutional No malaise 02/17/2016 Constitutional No weight loss 02/17/2016 Constitutional No weight gain 02/17/2016 Musculoskeletal joint complaint 2015 Constitutional No recent illness 2015 Constitutional No anorexia 02/09/2016 Constitutional No night sweats 2015 Constitutional No chills 02/09/2016 Constitutional No diaphoresis 02/09/2016 Constitutional No fatigue 02/09/2016 Constitutional No fever 02/09/2016 Constitutional No insomnia 02/09/2016 Constitutional No malaise 02/09/2016 Constitutional No weight loss 02/09/2016 Constitutional No weight gain 02/09/2016 Musculoskeletal joint complaint 2015 Constitutional No recent illness 2015 Constitutional No anorexia 02/03/2016 Constitutional No night sweats 2015 Constitutional No chills 02/03/2016 Constitutional No diaphoresis 02/03/2016 Constitutional No fatigue 02/03/2016 Constitutional No fever 02/03/2016 Constitutional No insomnia 02/03/2016 Constitutional No malaise 02/03/2016 Constitutional No weight loss 02/03/2016 Constitutional No weight gain 02/03/2016 Musculoskeletal joint complaint 2015 Constitutional No recent illness 2015 Constitutional No anorexia 01/26/2016 Constitutional No night sweats 2015 Constitutional No chills 01/26/2016 Constitutional No diaphoresis 01/26/2016 Constitutional No fatigue 01/26/2016 Constitutional No fever 01/26/2016 Constitutional No insomnia 01/26/2016 Constitutional No malaise 01/26/2016 Musculoskeletal joint complaint 2015 Ears/Nose/Throat/Neck No dizziness 2015 Ears/Nose/Throat/Neck No headache 2015 Cardiovascular No chest pain/pressure Cardiovascular No edema 01/26/2016 Gastrointestinal abdominal pain 2015 Genitourinary/Nephrology No dysuria 01/25 Genitourinary/Nephrology No urinary urgency 01/26/2016 Neurologic No alteration of consciousness 01/26/2016 Constitutional No chills 01/21/2016 Constitutional No diaphoresis 01/21/2016 Constitutional No fever 01/21/2016 Eyes No eye discharge 01/21/2016 Eyes No eye erythema 01/21/2016 Cardiovascular No chest pain/pressure Cardiovascular No dyspnea 01/21/2016 Respiratory No productive sputum 2015 Respiratory No chest congestion 2015 Gastrointestinal No constipation 2015 Gastrointestinal No diarrhea 01/21/2016 Gastrointestinal No nausea 01/21/2016 Gastrointestinal No vomiting 01/21/2016 Musculoskeletal No joint complaint 2015 Dermatologic No rash 01/21/2016 Neurologic No alteration of consciousness 01/21/2016 Psychiatric anxiety 01/21/2016 Constitutional fatigue 01/21/2016 Constitutional No malaise 01/21/2016 Ears/Nose/Throat/Neck nasal allergies Ears/Nose/Throat/Neck nasal discharge Respiratory cough 01/21/2016 Respiratory No dyspnea 01/21/2016 Gastrointestinal No abdominal pain 2015 Neurologic No mental status change 2015 Constitutional No recent illness 2015 Constitutional No anorexia 12/29/2015 Constitutional No night sweats 2015 Constitutional No chills 12/29/2015 Constitutional No diaphoresis 12/29/2015 Constitutional No fatigue 12/29/2015 Constitutional No fever 12/29/2015 Constitutional No insomnia 12/29/2015 Eyes No eye discharge 12/29/2015 Eyes No eye erythema 12/29/2015 Ears/Nose/Throat/Neck No dizziness 2015 Ears/Nose/Throat/Neck No headache 2015 Cardiovascular No chest pain/pressure Cardiovascular No dyspnea 12/29/2015 Cardiovascular No edema 12/29/2015 Respiratory No productive sputum 2015 Respiratory No chest congestion 2015 Gastrointestinal abdominal pain 2015 Gastrointestinal No constipation 2015 Gastrointestinal No diarrhea 12/29/2015 Gastrointestinal No nausea 12/29/2015 Gastrointestinal No vomiting 12/29/2015 Genitourinary/Nephrology No dysuria 12/28 Genitourinary/Nephrology No urinary urgency 12/29/2015 Musculoskeletal No joint complaint 2015 Dermatologic No rash 12/29/2015 Dermatologic No sores 12/29/2015 Neurologic No alteration of consciousness 12/29/2015 Psychiatric anxiety 12/29/2015 Neurologic memory loss 12/29/2015 Constitutional No recent illness 2015 Constitutional No anorexia 09/02/2015 Constitutional No night sweats 2015 Constitutional No chills 09/02/2015 Constitutional No diaphoresis 09/02/2015 Constitutional No fatigue 09/02/2015 Constitutional No fever 09/02/2015 Constitutional No insomnia 09/02/2015 Eyes No eye discharge 09/02/2015 Eyes No eye erythema 09/02/2015 Ears/Nose/Throat/Neck No dizziness 2015 Ears/Nose/Throat/Neck No headache 2015 Cardiovascular No chest pain/pressure Cardiovascular No dyspnea 09/02/2015 Cardiovascular No edema 09/02/2015 Respiratory No productive sputum 2015 Respiratory No chest congestion 2015 Gastrointestinal abdominal pain 2015 Gastrointestinal No constipation 2015 Gastrointestinal No diarrhea 09/02/2015 Gastrointestinal No nausea 09/02/2015 Gastrointestinal No vomiting 09/02/2015 Genitourinary/Nephrology No dysuria 09/01 Genitourinary/Nephrology No urinary urgency 09/02/2015 Musculoskeletal No joint complaint 2015 Dermatologic No rash 09/02/2015 Dermatologic No sores 09/02/2015 Neurologic No alteration of consciousness 09/02/2015 Psychiatric anxiety 09/02/2015 Constitutional No recent illness 2014 Constitutional No anorexia 05/06/2015 Constitutional No night sweats 2014 Constitutional No chills 05/06/2015 Constitutional No diaphoresis 05/06/2015 Constitutional No fatigue 05/06/2015 Constitutional No fever 05/06/2015 Constitutional No insomnia 05/06/2015 Eyes No eye discharge 05/06/2015 Eyes No eye erythema 05/06/2015 Ears/Nose/Throat/Neck No dizziness 2014 Ears/Nose/Throat/Neck No headache 2014 Cardiovascular No chest pain/pressure Cardiovascular No dyspnea 05/06/2015 Cardiovascular No edema 05/06/2015 Respiratory No productive sputum 2014 Respiratory No chest congestion 2014 Gastrointestinal abdominal pain 2014 Gastrointestinal No constipation 2014 Gastrointestinal No diarrhea 05/06/2015 Gastrointestinal gas and bloating 2014 Gastrointestinal No nausea 05/06/2015 Gastrointestinal No vomiting 05/06/2015 Genitourinary/Nephrology No dysuria 05/06 Genitourinary/Nephrology No urinary urgency 05/06/2015 Musculoskeletal No joint complaint 2014 Dermatologic No rash 05/06/2015 Dermatologic No sores 05/06/2015 Neurologic No alteration of consciousness 05/06/2015 Psychiatric anxiety 05/06/2015 Constitutional No recent illness 2014 Constitutional No anorexia 03/05/2015 Constitutional No night sweats 2014 Constitutional No chills 03/05/2015 Constitutional No diaphoresis 03/05/2015 Constitutional No fever 03/05/2015 Constitutional No insomnia 03/05/2015 Constitutional No weight loss 03/05/2015 Constitutional No weight gain 03/05/2015 Eyes No eye discharge 03/05/2015 Eyes No eye erythema 03/05/2015 Ears/Nose/Throat/Neck No dizziness 2014 Ears/Nose/Throat/Neck No headache 2014 Cardiovascular No chest pain/pressure Cardiovascular No dyspnea 03/05/2015 Cardiovascular No edema 03/05/2015 Respiratory No productive sputum 2014 Respiratory No chest congestion 2014 Gastrointestinal abdominal pain 2014 Gastrointestinal No constipation 2014 Gastrointestinal No diarrhea 03/05/2015 Gastrointestinal gas and bloating 2014 Gastrointestinal No nausea 03/05/2015 Gastrointestinal No vomiting 03/05/2015 Genitourinary/Nephrology No dysuria 03/05 Genitourinary/Nephrology No urinary urgency 03/05/2015 Musculoskeletal No joint complaint 2014 Dermatologic No rash 03/05/2015 Dermatologic No sores 03/05/2015 Neurologic No alteration of consciousness 03/05/2015 Psychiatric anxiety 03/05/2015 Constitutional No fatigue 03/05/2015 Constitutional No recent illness 2014 Constitutional No anorexia 12/04/2014 Constitutional No night sweats 2014 Constitutional No chills 12/04/2014 Constitutional No diaphoresis 12/04/2014 Constitutional fatigue 12/04/2014 Constitutional No fever 12/04/2014 Constitutional No insomnia 12/04/2014 Constitutional No weight loss 12/04/2014 Constitutional No weight gain 12/04/2014 Eyes No eye discharge 12/04/2014 Eyes No eye erythema 12/04/2014 Ears/Nose/Throat/Neck No dizziness 2014 Ears/Nose/Throat/Neck No headache 2014 Cardiovascular No chest pain/pressure Cardiovascular No dyspnea 12/04/2014 Cardiovascular No edema 12/04/2014 Respiratory No productive sputum 2014 Respiratory No chest congestion 2014 Gastrointestinal abdominal pain 2014 Gastrointestinal No constipation 2014 Gastrointestinal No diarrhea 12/04/2014 Gastrointestinal gas and bloating 2014 Gastrointestinal No nausea 12/04/2014 Gastrointestinal No vomiting 12/04/2014 Genitourinary/Nephrology No dysuria 12/04 Genitourinary/Nephrology No urinary urgency 12/04/2014 Musculoskeletal No joint complaint 2014 Dermatologic No rash 12/04/2014 Dermatologic No sores 12/04/2014 Neurologic No alteration of consciousness 12/04/2014 Psychiatric anxiety 12/04/2014 Constitutional No recent illness 2014 Constitutional No anorexia 09/24/2014 Constitutional No night sweats 2014 Constitutional No chills 09/24/2014 Constitutional No diaphoresis 09/24/2014 Constitutional No weight gain 09/24/2014 Constitutional No weight loss 09/24/2014 Constitutional No insomnia 09/24/2014 Constitutional No fever 09/24/2014 Constitutional fatigue 09/24/2014 Eyes No eye discharge 09/24/2014 Eyes No eye erythema 09/24/2014 Ears/Nose/Throat/Neck No dizziness 2014 Ears/Nose/Throat/Neck No headache 2014 Cardiovascular No chest pain/pressure Cardiovascular No dyspnea 09/24/2014 Cardiovascular No edema 09/24/2014 Respiratory No productive sputum 2014 Respiratory No chest congestion 2014 Gastrointestinal abdominal pain 2014 Gastrointestinal No constipation 2014 Gastrointestinal No diarrhea 09/24/2014 Gastrointestinal No vomiting 09/24/2014 Gastrointestinal No nausea 09/24/2014 Gastrointestinal gas and bloating 2014 Genitourinary/Nephrology No dysuria 09/24 Genitourinary/Nephrology No urinary urgency 09/24/2014 Musculoskeletal No joint complaint 2014 Dermatologic No rash 09/24/2014 Dermatologic No sores 09/24/2014 Neurologic No alteration of consciousness 09/24/2014 Psychiatric anxiety 09/24/2014 Constitutional No anorexia 09/09/2014 Constitutional No fever 09/09/2014 Constitutional No insomnia 09/09/2014 Eyes No eye discharge 09/09/2014 Eyes No vision change 09/09/2014 Ears/Nose/Throat/Neck No headache 2014 Cardiovascular No chest pain/pressure 08/2014 Cardiovascular No dyspnea 09/09/2014 Gastrointestinal No abdominal pain 2014 Gastrointestinal No constipation 2014 Gastrointestinal No diarrhea 09/09/2014 Genitourinary/Nephrology No dysuria 09/09 Genitourinary/Nephrology No urinary urgency 09/09/2014 Genitourinary/Nephrology No urinary frequency 09/09/2014 Musculoskeletal No back pain 09/09/2014 Dermatologic No rash 09/09/2014 Dermatologic No sores 09/09/2014 Neurologic No dizziness 09/09/2014 Neurologic No gait abnormality 2014 Neurologic No pain, back 09/09/2014 Psychiatric No anxiety 09/09/2014 Psychiatric depression 09/09/2014 Constitutional No night sweats 2014 Constitutional No chills 09/09/2014 Constitutional No fatigue 09/09/2014 Eyes No blindness 09/09/2014 Ears/Nose/Throat/Neck hearing loss 2014 Ears/Nose/Throat/Neck No hoarseness 09/09 Ears/Nose/Throat/Neck No nasal allergies 09/09/2014 Respiratory No chest congestion 2014 Respiratory No chest tightness 2014 Respiratory No cough 09/09/2014 Gastrointestinal No nausea 09/09/2014 Gastrointestinal No vomiting 09/09/2014 Musculoskeletal No stiffness 09/09/2014 Musculoskeletal No arthralgia(s) 2014 Neurologic hearing loss 09/09/2014 Neurologic No memory loss 09/09/2014 Constitutional No anorexia 07/26/2014 Constitutional No fever 07/26/2014 Constitutional No insomnia 07/26/2014 Eyes No vision change 07/26/2014 Eyes No eye discharge 07/26/2014 Ears/Nose/Throat/Neck No headache 2014 Cardiovascular No chest pain/pressure Cardiovascular No dyspnea 07/26/2014 Respiratory cough 07/26/2014 Gastrointestinal No abdominal pain 2014 Gastrointestinal No constipation 2014 Gastrointestinal No diarrhea 07/26/2014 Genitourinary/Nephrology No dysuria 07/26 Genitourinary/Nephrology No urinary urgency 07/26/2014 Genitourinary/Nephrology No urinary frequency 07/26/2014 Musculoskeletal No back pain 07/26/2014 Dermatologic No rash 07/26/2014 Dermatologic No sores 07/26/2014 Neurologic No gait abnormality 2014 Neurologic No dizziness 07/26/2014 Neurologic No pain, back 07/26/2014 Psychiatric anxiety 07/26/2014 Psychiatric depression 07/26/2014 Constitutional recent illness 07/10/2014 Constitutional No anorexia 07/10/2014 Constitutional No night sweats 2014 Constitutional chills 07/10/2014 Constitutional No diaphoresis 07/10/2014 Constitutional fatigue 07/10/2014 Constitutional No fever 07/10/2014 Constitutional No insomnia 07/10/2014 Eyes No eye discharge 07/10/2014 Eyes No eye erythema 07/10/2014 Ears/Nose/Throat/Neck No dizziness 2014 Ears/Nose/Throat/Neck No headache 2014 Ears/Nose/Throat/Neck No nasal allergies 07/10/2014 Ears/Nose/Throat/Neck No nasal discharge 07/10/2014 Ears/Nose/Throat/Neck No otalgia 2014 Ears/Nose/Throat/Neck No sinus congestion 07/10/2014 Ears/Nose/Throat/Neck No sore throat 08/2014 Cardiovascular No chest pain/pressure 08/2014 Cardiovascular No dyspnea 07/10/2014 Respiratory No productive sputum 2014 Respiratory No chest congestion 2014 Respiratory No cough 07/10/2014 Gastrointestinal No abdominal pain 2014 Gastrointestinal No constipation 2014 Gastrointestinal No diarrhea 07/10/2014 Genitourinary/Nephrology No dysuria 07/10 Musculoskeletal No joint complaint 2014 Dermatologic No rash 07/10/2014 Dermatologic No sores 07/10/2014 Neurologic No alteration of consciousness 07/10/2014 Psychiatric No anxiety 07/10/2014 Psychiatric No depression 07/10/2014 Genitourinary/Nephrology No dysuria 06/06 Genitourinary/Nephrology urinary frequency 06/06/2014 Musculoskeletal No joint complaint 2014 Constitutional recent illness 06/06/2014 Constitutional anorexia 06/06/2014 Constitutional chills 06/06/2014 Constitutional No diaphoresis 06/06/2014 Constitutional fatigue 06/06/2014 Constitutional No fever 06/06/2014 Constitutional insomnia 06/06/2014 Constitutional No malaise 06/06/2014 Constitutional No weight loss 06/06/2014 Constitutional No weight gain 06/06/2014 Eyes No eye discharge 06/06/2014 Eyes No eye erythema 06/06/2014 Ears/Nose/Throat/Neck dizziness 2014 Ears/Nose/Throat/Neck nasal allergies Ears/Nose/Throat/Neck No headache 2014 Ears/Nose/Throat/Neck No otorrhea 2014 Cardiovascular No chest pain/pressure Cardiovascular No dyspnea 06/06/2014 Cardiovascular No edema 06/06/2014 Respiratory No cough 06/06/2014 Respiratory No chest congestion 2014 Gastrointestinal No vomiting 06/06/2014 Gastrointestinal No nausea 06/06/2014 Gastrointestinal No constipation 2014 Gastrointestinal No diarrhea 06/06/2014 Dermatologic No rash 06/06/2014 Dermatologic No sores 06/06/2014 Neurologic syncope 06/06/2014 Psychiatric anxiety 06/06/2014 Constitutional recent illness 05/29/2014 Constitutional No anorexia 05/29/2014 Constitutional No night sweats 2014 Constitutional chills 05/29/2014 Constitutional No diaphoresis 05/29/2014 Constitutional fatigue 05/29/2014 Constitutional No fever 05/29/2014 Constitutional insomnia 05/29/2014 Constitutional malaise 05/29/2014 Eyes No eye discharge 05/29/2014 Eyes No eye erythema 05/29/2014 Ears/Nose/Throat/Neck No dizziness 2014 Ears/Nose/Throat/Neck No headache 2014 Ears/Nose/Throat/Neck nasal allergies Ears/Nose/Throat/Neck No otalgia 2014 Ears/Nose/Throat/Neck No sinus congestion 05/29/2014 Ears/Nose/Throat/Neck No sore throat Cardiovascular No chest pain/pressure Cardiovascular No dyspnea 05/29/2014 Respiratory No productive sputum 2014 Respiratory cough 05/29/2014 Gastrointestinal No abdominal pain 2014 Gastrointestinal No diarrhea 05/29/2014 Gastrointestinal No nausea 05/29/2014 Gastrointestinal No vomiting 05/29/2014 Genitourinary/Nephrology No dysuria 05/29 Musculoskeletal No joint complaint 2014 Dermatologic No rash 05/29/2014 Dermatologic No sores 05/29/2014 Neurologic No alteration of consciousness 05/29/2014 Psychiatric anxiety 05/29/2014 Constitutional recent illness 05/20/2014 Constitutional No anorexia 05/20/2014 Constitutional No night sweats 2014 Constitutional chills 05/20/2014 Constitutional No diaphoresis 05/20/2014 Constitutional fatigue 05/20/2014 Constitutional No fever 05/20/2014 Constitutional No insomnia 05/20/2014 Constitutional No malaise 05/20/2014 Eyes No eye discharge 05/20/2014 Eyes No eye erythema 05/20/2014 Gastrointestinal No diarrhea 05/20/2014 Gastrointestinal No vomiting 05/20/2014 Gastrointestinal No nausea 05/20/2014 Gastrointestinal No abdominal pain 2014 Genitourinary/Nephrology No dysuria 05/20 Respiratory cough 05/20/2014 Respiratory No productive sputum 2014 Musculoskeletal No joint complaint 2014 Dermatologic No rash 05/20/2014 Dermatologic No sores 05/20/2014 Neurologic No alteration of consciousness 05/20/2014 Ears/Nose/Throat/Neck No headache 2014 Ears/Nose/Throat/Neck nasal allergies 04/2015 Ears/Nose/Throat/Neck No otalgia 2014 Ears/Nose/Throat/Neck No sinus congestion 05/20/2014 Ears/Nose/Throat/Neck No sore throat 04/2015 Ears/Nose/Throat/Neck No dizziness 2014 Cardiovascular No chest pain/pressure 04/2015 Cardiovascular No dyspnea 05/20/2014 Psychiatric anxiety 05/20/2014 Constitutional No insomnia 03/25/2014 Constitutional No fatigue 03/25/2014 Constitutional recent illness 03/25/2014 Cardiovascular No chest pain/pressure Cardiovascular No dyspnea 03/25/2014 Respiratory cough 03/25/2014 Gastrointestinal No constipation 2013 Gastrointestinal No diarrhea 03/25/2014 Gastrointestinal No dyspepsia 03/25/2014 Gastrointestinal No abdominal pain 2013 Genitourinary/Nephrology No dysuria 03/25 Psychiatric No anxiety 03/25/2014 Psychiatric No depression 03/25/2014 Musculoskeletal No arthralgia(s) 2013 Constitutional No anorexia 03/25/2014 Constitutional No night sweats 2013 Constitutional chills 03/25/2014 Constitutional No diaphoresis 03/25/2014 Constitutional No fever 03/25/2014 Eyes No eye discharge 03/25/2014 Eyes No eye erythema 03/25/2014 Ears/Nose/Throat/Neck No dizziness 2013 Ears/Nose/Throat/Neck No headache 2013 Ears/Nose/Throat/Neck No nasal allergies 03/25/2014 Ears/Nose/Throat/Neck No nasal discharge 03/25/2014 Ears/Nose/Throat/Neck No otalgia 2013 Ears/Nose/Throat/Neck No sinus congestion 03/25/2014 Ears/Nose/Throat/Neck No sore throat Respiratory No productive sputum 2013 Respiratory No chest congestion 2013 Musculoskeletal No joint complaint 2013 Dermatologic No rash 03/25/2014 Dermatologic No sores 03/25/2014 Neurologic No alteration of consciousness 03/25/2014 Constitutional No recent illness 2013 Constitutional No anorexia 02/08/2014 Constitutional No night sweats 2013 Constitutional No chills 02/08/2014 Constitutional No diaphoresis 02/08/2014 Constitutional No fatigue 02/08/2014 Constitutional No fever 02/08/2014 Psychiatric No depression 02/08/2014 Psychiatric No anxiety 02/08/2014 Neurologic No memory loss 02/08/2014 Neurologic hearing loss 02/08/2014 Neurologic No headache 02/08/2014 Neurologic No gait abnormality 2013 Neurologic No dizziness 02/08/2014 Dermatologic No sores 02/08/2014 Dermatologic No rash 02/08/2014 Respiratory No chest congestion 2013 Respiratory No chest tightness 2013 Gastrointestinal No abdominal pain 2013 Gastrointestinal No constipation 2013 Gastrointestinal No nausea 02/08/2014 Gastrointestinal No vomiting 02/08/2014 Gastrointestinal No diarrhea 02/08/2014 Musculoskeletal No stiffness 02/08/2014 Musculoskeletal No arthralgia(s) 2013 Eyes No eye discharge 02/08/2014 Eyes No eye erythema 02/08/2014 Ears/Nose/Throat/Neck No dizziness 2013 Ears/Nose/Throat/Neck No headache 2013 Ears/Nose/Throat/Neck nasal allergies 07/2013 Ears/Nose/Throat/Neck No nasal discharge 02/08/2014 Ears/Nose/Throat/Neck No sinus congestion 02/08/2014 Ears/Nose/Throat/Neck No sore throat 07/2013 Cardiovascular No chest pain/pressure 07/2013 Gastrointestinal No gas and bloating 07/2013 Gastrointestinal No gastroesophageal reflux 02/08/2014 Constitutional No night sweats 2013 Constitutional No chills 12/24/2013 Constitutional No fatigue 12/24/2013 Constitutional No fever 12/24/2013 Eyes No blindness 12/24/2013 Eyes No vision change 12/24/2013 Ears/Nose/Throat/Neck No dizziness 2013 Ears/Nose/Throat/Neck facial pain 2013 Ears/Nose/Throat/Neck hearing loss 2013 Ears/Nose/Throat/Neck No hoarseness 12/24 Ears/Nose/Throat/Neck nasal allergies Ears/Nose/Throat/Neck nasal discharge Cardiovascular No dyspnea 12/24/2013 Cardiovascular No exercise intolerance Cardiovascular No fatigue 12/24/2013 Cardiovascular hypertension 12/24/2013 Respiratory No chest congestion 2013 Respiratory No chest tightness 2013 Respiratory No cough 12/24/2013 Gastrointestinal No abdominal pain 2013 Gastrointestinal No constipation 2013 Gastrointestinal No diarrhea 12/24/2013 Gastrointestinal No nausea 12/24/2013 Gastrointestinal No vomiting 12/24/2013 Musculoskeletal No stiffness 12/24/2013 Musculoskeletal No arthralgia(s) 2013 Dermatologic No rash 12/24/2013 Dermatologic No sores 12/24/2013 Neurologic No dizziness 12/24/2013 Neurologic No gait abnormality 2013 Neurologic No headache 12/24/2013 Neurologic hearing loss 12/24/2013 Neurologic No memory loss 12/24/2013 Psychiatric No anxiety 12/24/2013 Psychiatric No depression 12/24/2013 Constitutional No night sweats 2013 Constitutional No chills 11/20/2013 Constitutional No fatigue 11/20/2013 Constitutional No fever 11/20/2013 Eyes No blindness 11/20/2013 Eyes No vision change 11/20/2013 Ears/Nose/Throat/Neck No dizziness 2013 Ears/Nose/Throat/Neck hearing loss 2013 Ears/Nose/Throat/Neck No hoarseness 11/20 Respiratory No chest congestion 2013 Respiratory No chest tightness 2013 Respiratory No cough 11/20/2013 Gastrointestinal No abdominal pain 2013 Gastrointestinal No constipation 2013 Gastrointestinal No diarrhea 11/20/2013 Gastrointestinal No nausea 11/20/2013 Gastrointestinal No vomiting 11/20/2013 Musculoskeletal No stiffness 11/20/2013 Musculoskeletal No arthralgia(s) 2013 Dermatologic No rash 11/20/2013 Dermatologic No sores 11/20/2013 Neurologic No dizziness 11/20/2013 Neurologic No gait abnormality 2013 Neurologic No headache 11/20/2013 Neurologic hearing loss 11/20/2013 Neurologic No memory loss 11/20/2013 Psychiatric No anxiety 11/20/2013 Psychiatric No depression 11/20/2013 Ears/Nose/Throat/Neck facial pain 2013 Ears/Nose/Throat/Neck nasal allergies Ears/Nose/Throat/Neck nasal discharge Cardiovascular hypertension 11/20/2013 Cardiovascular No fatigue 11/20/2013 Cardiovascular No exercise intolerance Cardiovascular No dyspnea 11/20/2013 Respiratory No productive sputum 2013 Respiratory No chest congestion 2013 Respiratory No cough 10/30/2013 Cardiovascular No chest pain/pressure Cardiovascular No dyspnea 10/30/2013 Ears/Nose/Throat/Neck No nasal allergies 10/30/2013 Ears/Nose/Throat/Neck No nasal discharge 10/30/2013 Ears/Nose/Throat/Neck No dizziness 2013 Ears/Nose/Throat/Neck No headache 2013 Ears/Nose/Throat/Neck No otalgia 2013 Ears/Nose/Throat/Neck No sinus congestion 10/30/2013 Ears/Nose/Throat/Neck No sore throat Eyes No eye erythema 10/30/2013 Eyes No eye discharge 10/30/2013 Constitutional recent illness 10/30/2013 Constitutional No anorexia 10/30/2013 Constitutional No night sweats 2013 Constitutional chills 10/30/2013 Constitutional No diaphoresis 10/30/2013 Constitutional fatigue 10/30/2013 Constitutional No fever 10/30/2013 Constitutional No insomnia 10/30/2013 Gastrointestinal No abdominal pain 2013 Gastrointestinal No constipation 2013 Gastrointestinal No diarrhea 10/30/2013 Genitourinary/Nephrology No dysuria 10/30 Musculoskeletal No joint complaint 2013 Dermatologic No rash 10/30/2013 Dermatologic No sores 10/30/2013 Neurologic No alteration of consciousness 10/30/2013 Constitutional No night sweats 2013 Constitutional No chills 10/08/2013 Constitutional fatigue 10/08/2013 Constitutional No fever 10/08/2013 Eyes No blindness 10/08/2013 Eyes No vision change 10/08/2013 Ears/Nose/Throat/Neck No dizziness 2013 Ears/Nose/Throat/Neck hearing loss 2013 Ears/Nose/Throat/Neck No hoarseness 10/08 Ears/Nose/Throat/Neck nasal allergies 06/2013 Respiratory No chest congestion 2013 Respiratory No chest tightness 2013 Respiratory No cough 10/08/2013 Gastrointestinal No abdominal pain 2013 Gastrointestinal No constipation 2013 Gastrointestinal No diarrhea 10/08/2013 Gastrointestinal No nausea 10/08/2013 Gastrointestinal No vomiting 10/08/2013 Musculoskeletal No stiffness 10/08/2013 Musculoskeletal No arthralgia(s) 2013 Dermatologic No rash 10/08/2013 Dermatologic No sores 10/08/2013 Neurologic No dizziness 10/08/2013 Neurologic No gait abnormality 2013 Neurologic No headache 10/08/2013 Neurologic hearing loss 10/08/2013 Neurologic No memory loss 10/08/2013 Psychiatric No anxiety 10/08/2013 Psychiatric No depression 10/08/2013 Ears/Nose/Throat/Neck sore throat 2013 Ears/Nose/Throat/Neck facial pain 2013 Constitutional No night sweats 2013 Constitutional No chills 06/18/2013 Constitutional No fatigue 06/18/2013 Constitutional No fever 06/18/2013 Eyes No blindness 06/18/2013 Eyes No vision change 06/18/2013 Ears/Nose/Throat/Neck No dizziness 2013 Ears/Nose/Throat/Neck hearing loss 2013 Ears/Nose/Throat/Neck No hoarseness 06/18 Ears/Nose/Throat/Neck No nasal allergies 06/18/2013 Respiratory No chest congestion 2013 Respiratory No chest tightness 2013 Respiratory No cough 06/18/2013 Gastrointestinal No abdominal pain 2013 Gastrointestinal No constipation 2013 Gastrointestinal No diarrhea 06/18/2013 Gastrointestinal No nausea 06/18/2013 Gastrointestinal No vomiting 06/18/2013 Musculoskeletal No stiffness 06/18/2013 Musculoskeletal No arthralgia(s) 2013 Dermatologic No rash 06/18/2013 Dermatologic No sores 06/18/2013 Neurologic No dizziness 06/18/2013 Neurologic No gait abnormality 2013 Neurologic No headache 06/18/2013 Neurologic hearing loss 06/18/2013 Neurologic No memory loss 06/18/2013 Psychiatric No anxiety 06/18/2013 Psychiatric No depression 06/18/2013 Constitutional No night sweats 2012 Constitutional No chills 04/04/2013 Constitutional No fatigue 04/04/2013 Constitutional No fever 04/04/2013 Eyes No blindness 04/04/2013 Eyes No vision change 04/04/2013 Ears/Nose/Throat/Neck No dizziness 2012 Ears/Nose/Throat/Neck hearing loss 2012 Ears/Nose/Throat/Neck No hoarseness 04/04 Ears/Nose/Throat/Neck No nasal allergies 04/04/2013 Respiratory No chest congestion 2012 Respiratory No chest tightness 2012 Respiratory No cough 04/04/2013 Gastrointestinal No abdominal pain 2012 Gastrointestinal No constipation 2012 Gastrointestinal No diarrhea 04/04/2013 Gastrointestinal No nausea 04/04/2013 Gastrointestinal No vomiting 04/04/2013 Musculoskeletal No stiffness 04/04/2013 Musculoskeletal No arthralgia(s) 2012 Dermatologic No rash 04/04/2013 Dermatologic No sores 04/04/2013 Neurologic No dizziness 04/04/2013 Neurologic No gait abnormality 2012 Neurologic No headache 04/04/2013 Neurologic hearing loss 04/04/2013 Neurologic No memory loss 04/04/2013 Psychiatric No anxiety 04/04/2013 Psychiatric No depression 04/04/2013 Constitutional No night sweats 2012 Constitutional No chills 02/19/2013 Constitutional No fatigue 02/19/2013 Constitutional No fever 02/19/2013 Eyes No blindness 02/19/2013 Eyes No vision change 02/19/2013 Ears/Nose/Throat/Neck No dizziness 2012 Ears/Nose/Throat/Neck hearing loss 2012 Ears/Nose/Throat/Neck No hoarseness 02/19 Ears/Nose/Throat/Neck No nasal allergies 02/19/2013 Respiratory No chest congestion 2012 Respiratory No chest tightness 2012 Respiratory No cough 02/19/2013 Gastrointestinal No abdominal pain 2012 Gastrointestinal No constipation 2012 Gastrointestinal No diarrhea 02/19/2013 Gastrointestinal No nausea 02/19/2013 Gastrointestinal No vomiting 02/19/2013 Musculoskeletal No stiffness 02/19/2013 Musculoskeletal No arthralgia(s) 2012 Dermatologic No rash 02/19/2013 Dermatologic No sores 02/19/2013 Neurologic No dizziness 02/19/2013 Neurologic No gait abnormality 2012 Neurologic No headache 02/19/2013 Neurologic hearing loss 02/19/2013 Neurologic No memory loss 02/19/2013 Psychiatric No anxiety 02/19/2013 Psychiatric No depression 02/19/2013 Constitutional No night sweats 2012 Constitutional No chills 10/16/2012 Constitutional No fatigue 10/16/2012 Constitutional No fever 10/16/2012 Eyes No blindness 10/16/2012 Eyes No vision change 10/16/2012 Ears/Nose/Throat/Neck No dizziness 2012 Ears/Nose/Throat/Neck hearing loss 2012 Ears/Nose/Throat/Neck No hoarseness 10/16 Ears/Nose/Throat/Neck No nasal allergies 10/16/2012 Respiratory No chest congestion 2012 Respiratory No chest tightness 2012 Respiratory No cough 10/16/2012 Gastrointestinal No abdominal pain 2012 Gastrointestinal No constipation 2012 Gastrointestinal No diarrhea 10/16/2012 Gastrointestinal No nausea 10/16/2012 Gastrointestinal No vomiting 10/16/2012 Musculoskeletal No stiffness 10/16/2012 Musculoskeletal No arthralgia(s) 2012 Dermatologic No rash 10/16/2012 Dermatologic No sores 10/16/2012 Neurologic No dizziness 10/16/2012 Neurologic No gait abnormality 2012 Neurologic No headache 10/16/2012 Neurologic hearing loss 10/16/2012 Psychiatric No anxiety 10/16/2012 Psychiatric No depression 10/16/2012 Neurologic No memory loss 10/16/2012 Constitutional No night sweats 2012 Constitutional No chills 06/19/2012 Constitutional No fatigue 06/19/2012 Constitutional No fever 06/19/2012 Eyes No blindness 06/19/2012 Eyes No vision change 06/19/2012 Respiratory No chest congestion 2012 Respiratory No chest tightness 2012 Respiratory No cough 06/19/2012 Gastrointestinal No abdominal pain 2012 Gastrointestinal No constipation 2012 Gastrointestinal No diarrhea 06/19/2012 Gastrointestinal No nausea 06/19/2012 Gastrointestinal No vomiting 06/19/2012 Musculoskeletal No stiffness 06/19/2012 Musculoskeletal No arthralgia(s) 2012 Dermatologic No rash 06/19/2012 Dermatologic No sores 06/19/2012 Neurologic No dizziness 06/19/2012 Neurologic No gait abnormality 2012 Neurologic No headache 06/19/2012 Neurologic hearing loss 06/19/2012 Psychiatric No anxiety 06/19/2012 Psychiatric No depression 06/19/2012 Ears/Nose/Throat/Neck No dizziness 2012 Ears/Nose/Throat/Neck hearing loss 2012 Ears/Nose/Throat/Neck No hoarseness 06/19 Ears/Nose/Throat/Neck No nasal allergies 06/19/2012 Constitutional No night sweats 2011 Constitutional No chills 03/20/2012 Constitutional No fatigue 03/20/2012 Constitutional No fever 03/20/2012 Eyes No blindness 03/20/2012 Eyes No vision change 03/20/2012 Respiratory No chest congestion 2011 Respiratory No chest tightness 2011 Respiratory No cough 03/20/2012 Gastrointestinal No abdominal pain 2011 Gastrointestinal No constipation 2011 Gastrointestinal No diarrhea 03/20/2012 Gastrointestinal No nausea 03/20/2012 Gastrointestinal No vomiting 03/20/2012 Musculoskeletal No stiffness 03/20/2012 Musculoskeletal No arthralgia(s) 2011 Dermatologic No rash 03/20/2012 Dermatologic No sores 03/20/2012 Neurologic No dizziness 03/20/2012 Neurologic No gait abnormality 2011 Neurologic No headache 03/20/2012 Neurologic hearing loss 03/20/2012 Psychiatric No anxiety 03/20/2012 Psychiatric No depression 03/20/2012 Constitutional No night sweats 2011 Constitutional No chills 01/24/2012 Constitutional No fatigue 01/24/2012 Constitutional No fever 01/24/2012 Eyes No blindness 01/24/2012 Eyes No vision change 01/24/2012 Respiratory No chest congestion 2011 Respiratory No chest tightness 2011 Respiratory No cough 01/24/2012 Gastrointestinal No abdominal pain 2011 Gastrointestinal No constipation 2011 Gastrointestinal No diarrhea 01/24/2012 Gastrointestinal No nausea 01/24/2012 Gastrointestinal No vomiting 01/24/2012 Musculoskeletal No stiffness 01/24/2012 Musculoskeletal No arthralgia(s) 2011 Dermatologic No rash 01/24/2012 Dermatologic No sores 01/24/2012 Neurologic No dizziness 01/24/2012 Neurologic No gait abnormality 2011 Neurologic No headache 01/24/2012 Neurologic hearing loss 01/24/2012 Psychiatric No anxiety 01/24/2012 Psychiatric No depression 01/24/2012 Constitutional No night sweats 2011 Constitutional No chills 12/20/2011 Constitutional No fatigue 12/20/2011 Constitutional No fever 12/20/2011 Respiratory No chest congestion 2011 Respiratory No chest tightness 2011 Respiratory No cough 12/20/2011 Gastrointestinal No abdominal pain 2011 Gastrointestinal No constipation 2011 Gastrointestinal No diarrhea 12/20/2011 Gastrointestinal No nausea 12/20/2011 Gastrointestinal No vomiting 12/20/2011 Musculoskeletal No stiffness 12/20/2011 Musculoskeletal No arthralgia(s) 2011 Dermatologic No rash 12/20/2011 Dermatologic No sores 12/20/2011 Neurologic No dizziness 12/20/2011 Neurologic No gait abnormality 2011 Neurologic No headache 12/20/2011 Neurologic hearing loss 12/20/2011 Psychiatric No anxiety 12/20/2011 Psychiatric No depression 12/20/2011 Eyes No blindness 12/20/2011 Eyes No vision change 12/20/2011 Constitutional No recent illness 2011 Constitutional No anorexia 12/09/2011 Constitutional No night sweats 2011 Constitutional No chills 12/09/2011 Constitutional No diaphoresis 12/09/2011 Constitutional No fatigue 12/09/2011 Constitutional No fever 12/09/2011 Constitutional No insomnia 12/09/2011 Constitutional No malaise 12/09/2011 Cardiovascular No chest pain/pressure 06/2011 Respiratory No productive sputum 2011 Respiratory No cough 12/09/2011 Ears/Nose/Throat/Neck No dizziness 2011 Ears/Nose/Throat/Neck No nasal allergies 12/09/2011 Ears/Nose/Throat/Neck No nasal discharge 12/09/2011 Ears/Nose/Throat/Neck No headache 2011 Eyes No eye discharge 12/09/2011 Eyes No eye erythema 12/09/2011 Gastrointestinal No abdominal pain 2011 Gastrointestinal No vomiting 12/09/2011 Gastrointestinal No nausea 12/09/2011 Gastrointestinal No constipation 2011 Genitourinary/Nephrology No dysuria 12/08 Musculoskeletal No joint complaint 2011 Neurologic No alteration of consciousness 12/09/2011 Neurologic No dizziness 12/09/2011 Neurologic No syncope 12/09/2011 Cardiovascular No dyspnea 12/09/2011 Cardiovascular No edema 12/09/2011 Gastrointestinal No vomiting 08/25/2011 Gastrointestinal No nausea 08/25/2011 Constitutional No fever 08/25/2011 Constitutional No fatigue 08/25/2011 Constitutional No night sweats 2011 Gastrointestinal No constipation 2011 Gastrointestinal No diarrhea 08/25/2011 Constitutional No chills 08/25/2011 Respiratory No chest congestion 2011 Respiratory No chest tightness 2011 Respiratory No cough 08/25/2011 Gastrointestinal No abdominal pain 2011 Psychiatric No anxiety 08/25/2011 Psychiatric No depression 08/25/2011 Dermatologic No rash 08/25/2011 Dermatologic No sores 08/25/2011 Musculoskeletal No stiffness 08/25/2011 Musculoskeletal No arthralgia(s) 2011 Neurologic No dizziness 08/25/2011 Neurologic No gait abnormality 2011 Neurologic No headache 08/25/2011 Neurologic hearing loss 08/25/2011 Constitutional No night sweats 2011 Constitutional No chills 06/23/2011 Constitutional No fatigue 06/23/2011 Constitutional No fever 06/23/2011 Eyes No vision change 06/23/2011 Ears/Nose/Throat/Neck No dizziness 2011 Ears/Nose/Throat/Neck No headache 2011 Respiratory No chest congestion 2011 Respiratory No chest tightness 2011 Respiratory No cough 06/23/2011 Gastrointestinal No abdominal pain 2011 Gastrointestinal No constipation 2011 Gastrointestinal No diarrhea 06/23/2011 Psychiatric No anxiety 06/23/2011 Psychiatric No depression 06/23/2011 Musculoskeletal No stiffness 06/23/2011 Musculoskeletal No arthralgia(s) 2011 Genitourinary/Nephrology No urinary urgency 06/23/2011 Dermatologic No rash 06/23/2011 Dermatologic No sores 06/23/2011 Neurologic No dizziness 06/23/2011 Neurologic No gait abnormality 2011 Neurologic No headache 06/23/2011 Neurologic hearing loss 06/23/2011 Constitutional No anorexia 04/19/2011 Constitutional No diaphoresis 04/19/2011 Constitutional No fatigue 04/19/2011 Eyes No vision change 04/19/2011 Ears/Nose/Throat/Neck No dizziness 2010 Ears/Nose/Throat/Neck No headache 2010 Respiratory No chest congestion 2010 Respiratory No chest tightness 2010 Respiratory No cough 04/19/2011 Gastrointestinal No diarrhea 04/19/2011 Gastrointestinal No constipation 2010 Musculoskeletal No joint complaint 2010 Musculoskeletal No arthralgia(s) 2010 Neurologic No headache 04/19/2011 Neurologic No memory loss 04/19/2011 Neurologic No dizziness 04/19/2011 Psychiatric No anxiety 04/19/2011 Psychiatric No depression 04/19/2011 Constitutional No night sweats 2010 Constitutional No chills 03/08/2011 Constitutional No fatigue 03/08/2011 Constitutional No fever 03/08/2011 Eyes No vision change 03/08/2011 Ears/Nose/Throat/Neck No dizziness 2010 Ears/Nose/Throat/Neck No headache 2010 Respiratory No chest congestion 2010 Respiratory No chest tightness 2010 Respiratory No cough 03/08/2011 Gastrointestinal No abdominal pain 2010 Gastrointestinal No constipation 2010 Gastrointestinal No diarrhea 03/08/2011 Psychiatric No anxiety 03/08/2011 Psychiatric No depression 03/08/2011 Constitutional No night sweats 2010 Constitutional No chills 03/01/2011 Constitutional No fever 03/01/2011 Constitutional No fatigue 03/01/2011 Eyes No vision change 03/01/2011 Ears/Nose/Throat/Neck No dizziness 2010 Ears/Nose/Throat/Neck No headache 2010 Respiratory No chest congestion 2010 Respiratory No chest tightness 2010 Respiratory No cough 03/01/2011 Gastrointestinal No abdominal pain 2010 Gastrointestinal No constipation 2010 Gastrointestinal No diarrhea 03/01/2011 Psychiatric No anxiety 03/01/2011 Psychiatric No depression 03/01/2011 Psychiatric No depression 02/01/2011 Psychiatric disturbances of memory 2010 Constitutional No anorexia 02/01/2011 Constitutional No chills 02/01/2011 Constitutional No fatigue 02/01/2011 Eyes No vision change 02/01/2011 Ears/Nose/Throat/Neck No dizziness 2010 Ears/Nose/Throat/Neck No headache 2010 Cardiovascular No chest pain/pressure Cardiovascular No fatigue 02/01/2011 Cardiovascular No edema 02/01/2011 Cardiovascular No dyspnea 02/01/2011 Respiratory No cough 02/01/2011 Respiratory No chest tightness 2010 Gastrointestinal abdominal pain 2010 Genitourinary/Nephrology urinary urgency 02/01/2011 Genitourinary/Nephrology urinary retention/hesitancy 02/01/2011 Genitourinary/Nephrology testicular pain 02/01/2011 Musculoskeletal No swelling 02/01/2011 Musculoskeletal No arthralgia(s) 2010 Musculoskeletal No back pain 02/01/2011 Dermatologic No sores 02/01/2011 Dermatologic No rash 02/01/2011 Psychiatric anxiety 02/01/2011 Constitutional No night sweats 2010 Constitutional recent illness 01/27/2011 Constitutional No chills 01/27/2011 Constitutional No fever 01/27/2011 Constitutional No fatigue 01/27/2011 Eyes No eye discharge 01/27/2011 Eyes No eye erythema 01/27/2011 Cardiovascular No chest pain/pressure Respiratory No cough 01/27/2011 Gastrointestinal No nausea 01/27/2011 Gastrointestinal No vomiting 01/27/2011 Genitourinary/Nephrology No dysuria 01/27 Genitourinary/Nephrology No genital lesion 01/27/2011 Genitourinary/Nephrology testicular pain 01/27/2011 Genitourinary/Nephrology No testicular mass 01/27/2011 Constitutional No chills 01/26/2011 Constitutional No anorexia 01/26/2011 Constitutional No fatigue 01/26/2011 Constitutional No fever 01/26/2011 Cardiovascular No chest pain/pressure Gastrointestinal gas and bloating 2010 Gastrointestinal No abdominal pain 2010 Constitutional No malaise 01/26/2011 Constitutional No chills 01/15/2011 Constitutional No fever 01/15/2011 Constitutional No fatigue 01/15/2011 Eyes No vision change 01/15/2011 Cardiovascular No chest pain/pressure 01/2011 Cardiovascular No palpitations 2010 Gastrointestinal No nausea 01/15/2011 Gastrointestinal No vomiting 01/15/2011 Gastrointestinal No constipation 2010 Gastrointestinal No diarrhea 01/15/2011 Gastrointestinal gas and bloating 2010 Gastrointestinal No abdominal pain 2010 Genitourinary/Nephrology No dysuria 01/15 Genitourinary/Nephrology No hematuria 01/2011 Genitourinary/Nephrology nocturia 2010 Genitourinary/Nephrology No penile pain and discharge 01/15/2011 Genitourinary/Nephrology No polyuria 01/2011 Genitourinary/Nephrology urinary retention/hesitancy 01/15/2011 Genitourinary/Nephrology No urinary incontinence 01/15/2011 Genitourinary/Nephrology urinary frequency 01/15/2011 Dermatologic No rash 01/15/2011 Neurologic No dizziness 01/15/2011 Neurologic No gait abnormality 2010 Neurologic No headache 01/15/2011 Genitourinary/Nephrology No dysuria 01/06 Genitourinary/Nephrology No hernia 2010 Genitourinary/Nephrology No urinary urgency 01/06/2011 Genitourinary/Nephrology No urinary frequency 01/06/2011 Genitourinary/Nephrology No urinary incontinence 01/06/2011 Musculoskeletal No arthralgia(s) 2010 Musculoskeletal No back pain 01/06/2011 Musculoskeletal No muscle weakness 2010 Musculoskeletal No myalgias 01/06/2011 Respiratory No chest congestion 2010 Respiratory No chest tightness 2010 Respiratory No cough 01/06/2011 Respiratory No dyspnea on exertion 2010 Respiratory No dyspnea 01/06/2011 Gastrointestinal diarrhea 01/06/2011 Gastrointestinal No constipation 2010 Gastrointestinal No anorexia 01/06/2011 Gastrointestinal No gas and bloating Gastrointestinal No gastroesophageal reflux 01/06/2011 Gastrointestinal No nausea 01/06/2011 Gastrointestinal No vomiting 01/06/2011 Gastrointestinal No jaundice 01/06/2011 Dermatologic No rash 01/06/2011 Dermatologic No sores 01/06/2011 Neurologic No aphasia 01/06/2011 Neurologic No ataxia 01/06/2011 Neurologic No dizziness 01/06/2011 Neurologic No gait abnormality 2010 Neurologic No headache 01/06/2011 Neurologic No memory loss 01/06/2011 Psychiatric No anxiety 01/06/2011 Psychiatric No depression 01/06/2011 Psychiatric disturbances of consciousness 01/06/2011 Psychiatric No disturbances of emotion Psychiatric disturbances of memory 2010 Psychiatric No hallucination 01/06/2011 Hematologic/Lymphatic No abnormal ecchymoses 01/06/2011 Hematologic/Lymphatic No abnormal bleeding and bruising 01/06/2011 Allergy/Immunology No rhinitis 2010 Constitutional fever 01/06/2011 Constitutional No chills 01/06/2011 Eyes No vision change 01/06/2011 Ears/Nose/Throat/Neck No dizziness 2010 Ears/Nose/Throat/Neck No dysphagia 2010 Ears/Nose/Throat/Neck No neck pain 2010 Cardiovascular No chest pain/pressure Cardiovascular No dyspnea 01/06/2011 Cardiovascular No edema 01/06/2011 Cardiovascular fatigue 01/06/2011 Physical Exam Exam Name System Name Item Name Status Result Effective Dates Notes Full Exam - General 1994 Constitutional general appearance Overall: well developed 03/21/2017 None Full Exam - General 1994 Constitutional general appearance Overall: in no acute distress 03/21/2017 None Full Exam - General 1994 Constitutional general appearance Overall: well nourished 03/21/2017 None Full Exam - General 1994 Eyes pupils and irises Overall: pupils equal, round, reactive to light and accomodation 03/21/2017 None Full Exam - General 1994 Ears/Nose/Throat otoscopic exam Overall: external auditory canals clear 03/21/2017 None Full Exam - General 1994 Ears/Nose/Throat otoscopic exam Overall: tympanic membranes clear 03/21/2017 None Full Exam - General 1994 Ears/Nose/Throat oral cavity/pharynx/larynx Overall: oral mucosa clear 03/21/2017 None Full Exam - General 1994 Ears/Nose/Throat oral cavity/pharynx/larynx Overall: oropharyngeal mucosa clear 03/21/2017 None Full Exam - General 1994 Ears/Nose/Throat oral cavity/pharynx/larynx Overall: no masses 03/21/2017 None Full Exam - General 1994 Respiratory auscultation Overall: breath sounds clear bilaterally 03/21/2017 None Full Exam - General 1994 Respiratory respiratory effort/rhythm Overall: no retractions 03/21/2017 None Full Exam - General 1994 Respiratory respiratory effort/rhythm Overall: normal rate 03/21/2017 None Full Exam - General 1994 Cardiovascular auscultation of heart Overall: regular rate 03/21/2017 None Full Exam - General 1994 Cardiovascular auscultation of heart Overall: normal heart sounds 03/21/2017 None Full Exam - General 1994 Abdomen abdominal exam Overall: no tenderness 03/21/2017 None Full Exam - General 1994 Abdomen abdominal exam Overall: normal bowel sounds 03/21/2017 None Full Exam - General 1994 Musculoskeletal spine, ribs and pelvis Overall: ribs benign 03/21/2017 None Full Exam - General 1994 Musculoskeletal spine, ribs and pelvis Overall: spine benign 03/21/2017 None Full Exam - General 1994 Musculoskeletal spine, ribs and pelvis Overall: sacroiliac joint benign 03/21/2017 None Full Exam - General 1994 Musculoskeletal spine, ribs and pelvis Overall: right hip benign 03/21/2017 None Full Exam - General 1994 Musculoskeletal spine, ribs and pelvis Overall: left hip benign 03/21/2017 None Full Exam - General 1994 Musculoskeletal spine, ribs and pelvis Overall: good posture 03/21/2017 None Full Exam - General 1994 Musculoskeletal head and neck Overall: head atraumatic 03/21/2017 None Full Exam - General 1994 Musculoskeletal head and neck Overall: cervical spine benign 03/21/2017 None Full Exam - General 1994 Neurologic gait Overall: no ataxia, no unsteadiness 03/21/2017 None Full Exam - General 1994 Psychiatric orientation/consciousness Overall: oriented to person, place and time 03/21/2017 None Full Exam - General 1994 Psychiatric mood and affect Overall: normal mood and affect 03/21/2017 None Full Exam - General 1994 Lymphatic neck nodes Overall: anterior cervical chain benign 03/21/2017 None Full Exam - ENT Constitutional general appearance Overall: well nourished 03/08/2017 None Full Exam - ENT Constitutional general appearance Overall: well developed 03/08/2017 None Full Exam - ENT Constitutional general appearance Overall: in no acute distress 03/08/2017 None Full Exam - ENT Neurologic orientation Overall: oriented to person, place and time 03/08/2017 None Full Exam - ENT Integument inspection of skin Overall: no rash, lesions 03/08/2017 None Full Exam - ENT Lymphatic palpation of lymph nodes Overall: anterior cervical chain benign 03/08/2017 None Full Exam - ENT Lymphatic palpation of lymph nodes Overall: posterior cervical chain benign 03/08/2017 None Full Exam - ENT Cardiovascular auscultation of heart Overall: regular rate 03/08/2017 None Full Exam - ENT Cardiovascular auscultation of heart Overall: normal heart sounds 03/08/2017 None Full Exam - ENT Cardiovascular auscultation of heart Overall: no murmurs 03/08/2017 None Full Exam - ENT Respiratory auscultation Overall: breath sounds clear bilaterally 03/08/2017 None Full Exam - ENT Respiratory inspection Overall: normal rate None Full Exam - ENT Respiratory inspection Overall: no retractions 03/08/2017 None Full Exam - ENT Face and Head palpation Overall: no sinus tenderness 03/08/2017 None Full Exam - ENT Ears/Nose/Throat otoscopic exam Left external auditory canal: minimal cerumen 03/08/2017 None Full Exam - ENT Ears/Nose/Throat otoscopic exam Left tympanic membrane: air -fluid level 03/08/2017 None Full Exam - ENT Ears/Nose/Throat otoscopic exam Overall: external auditory canals normal 03/08/2017 None Full Exam - ENT Ears/Nose/Throat otoscopic exam Overall: tympanic membranes normal 03/08/2017 None Full Exam - General 1994 Constitutional general appearance Overall: well developed 01/25/2017 None Full Exam - General 1994 Constitutional general appearance Overall: in no acute distress 01/25/2017 None Full Exam - General 1994 Constitutional general appearance Overall: well nourished 01/25/2017 None Full Exam - General 1994 Eyes pupils and irises Overall: pupils equal, round, reactive to light and accomodation 01/25/2017 None Full Exam - General 1994 Ears/Nose/Throat otoscopic exam Overall: external auditory canals clear 01/25/2017 None Full Exam - General 1994 Ears/Nose/Throat otoscopic exam Overall: tympanic membranes clear 01/25/2017 None Full Exam - General 1994 Ears/Nose/Throat oral cavity/pharynx/larynx Overall: oral mucosa clear 01/25/2017 None Full Exam - General 1994 Ears/Nose/Throat oral cavity/pharynx/larynx Overall: oropharyngeal mucosa clear 01/25/2017 None Full Exam - General 1994 Ears/Nose/Throat oral cavity/pharynx/larynx Overall: no masses 01/25/2017 None Full Exam - General 1994 Respiratory auscultation Overall: breath sounds clear bilaterally 01/25/2017 None Full Exam - General 1994 Respiratory respiratory effort/rhythm Overall: no retractions 01/25/2017 None Full Exam - General 1994 Respiratory respiratory effort/rhythm Overall: normal rate 01/25/2017 None Full Exam - General 1994 Cardiovascular auscultation of heart Overall: regular rate 01/25/2017 None Full Exam - General 1994 Cardiovascular auscultation of heart Overall: normal heart sounds 01/25/2017 None Full Exam - General 1994 Abdomen abdominal exam Overall: no tenderness 01/25/2017 None Full Exam - General 1994 Abdomen abdominal exam Overall: normal bowel sounds 01/25/2017 None Full Exam - General 1994 Lymphatic neck nodes Overall: anterior cervical chain benign 01/25/2017 None Full Exam - General 1994 Lymphatic neck nodes Overall: posterior cervical chain benign 01/25/2017 None Full Exam - General 1994 Musculoskeletal spine, ribs and pelvis Overall: ribs benign 01/25/2017 None Full Exam - General 1994 Musculoskeletal spine, ribs and pelvis Overall: spine benign 01/25/2017 None Full Exam - General 1994 Musculoskeletal spine, ribs and pelvis Overall: sacroiliac joint benign 01/25/2017 None Full Exam - General 1994 Musculoskeletal spine, ribs and pelvis Overall: right hip benign 01/25/2017 None Full Exam - General 1994 Musculoskeletal spine, ribs and pelvis Overall: left hip benign 01/25/2017 None Full Exam - General 1994 Musculoskeletal spine, ribs and pelvis Overall: good posture 01/25/2017 None Full Exam - General 1994 Musculoskeletal head and neck Overall: head atraumatic 01/25/2017 None Full Exam - General 1994 Musculoskeletal head and neck Overall: cervical spine benign 01/25/2017 None Full Exam - General 1994 Neurologic gait Overall: no ataxia, no unsteadiness 01/25/2017 None Full Exam - General 1994 Psychiatric orientation/consciousness Overall: oriented to person, place and time 01/25/2017 None Full Exam - General 1994 Psychiatric mood and affect Overall: normal mood and affect 01/25/2017 None Full Exam - General 1994 Ears/Nose/Throat oral cavity/pharynx/larynx Oral mucosa: thrush 12/20/2016 --Improved Full Exam - General 1994 Respiratory auscultation Upper lung field: diminished 12/20/2016 --Improved Full Exam - General 1994 Constitutional general appearance Overall: well developed 12/20/2016 None Full Exam - General 1994 Constitutional general appearance Overall: in no acute distress 12/20/2016 None Full Exam - General 1994 Constitutional general appearance Overall: well nourished 12/20/2016 None Full Exam - General 1994 Eyes pupils and irises Overall: pupils equal, round, reactive to light and accomodation 12/20/2016 None Full Exam - General 1994 Ears/Nose/Throat otoscopic exam Overall: external auditory canals clear 12/20/2016 None Full Exam - General 1994 Ears/Nose/Throat otoscopic exam Overall: tympanic membranes clear 12/20/2016 None Full Exam - General 1994 Ears/Nose/Throat internal nose Overall: no sinus tenderness 12/20/2016 None Full Exam - General 1994 Ears/Nose/Throat lips/teeth/gingiva Overall: benign lips 12/20/2016 None Full Exam - General 1994 Respiratory respiratory effort/rhythm Overall: no retractions 12/20/2016 None Full Exam - General 1994 Respiratory respiratory effort/rhythm Overall: normal rate 12/20/2016 None Full Exam - General 1994 Cardiovascular auscultation of heart Overall: regular rate 12/20/2016 None Full Exam - General 1994 Cardiovascular auscultation of heart Overall: normal heart sounds 12/20/2016 None Full Exam - General 1994 Abdomen abdominal exam Overall: no tenderness 12/20/2016 None Full Exam - General 1994 Abdomen abdominal exam Overall: normal bowel sounds 12/20/2016 None Full Exam - General 1994 Lymphatic neck nodes Overall: anterior cervical chain benign 12/20/2016 None Full Exam - General 1994 Lymphatic neck nodes Overall: posterior cervical chain benign 12/20/2016 None Full Exam - General 1994 Musculoskeletal spine, ribs and pelvis Overall: good posture 12/20/2016 None Full Exam - General 1994 Musculoskeletal head and neck Overall: head atraumatic 12/20/2016 None Full Exam - General 1994 Neurologic gait Overall: no ataxia, no unsteadiness 12/20/2016 None Full Exam - General 1994 Neurologic cranial nerves Overall: crainial nerves 2 - 12 grossly intact 12/20/2016 None Full Exam - General 1994 Psychiatric orientation/consciousness Overall: oriented to person, place and time 12/20/2016 None Full Exam - General 1994 Psychiatric mood and affect Overall: normal mood and affect 12/20/2016 None Full Exam - General 1994 Psychiatric appearance Overall: well-groomed, good eye contact 12/20/2016 None Full Exam - General 1994 Constitutional general appearance Overall: well developed 12/01/2016 None Full Exam - General 1994 Constitutional general appearance Overall: in no acute distress 12/01/2016 None Full Exam - General 1994 Constitutional general appearance Overall: well nourished 12/01/2016 None Full Exam - General 1994 Eyes pupils and irises Overall: pupils equal, round, reactive to light and accomodation 12/01/2016 None Full Exam - General 1994 Ears/Nose/Throat otoscopic exam Overall: external auditory canals clear 12/01/2016 None Full Exam - General 1994 Ears/Nose/Throat otoscopic exam Overall: tympanic membranes clear 12/01/2016 None Full Exam - General 1994 Ears/Nose/Throat internal nose Overall: no sinus tenderness 12/01/2016 None Full Exam - General 1994 Ears/Nose/Throat lips/teeth/gingiva Overall: benign lips 12/01/2016 None Full Exam - General 1994 Ears/Nose/Throat oral cavity/pharynx/larynx Oral mucosa: thrush 12/01/2016 None Full Exam - General 1994 Respiratory auscultation Upper lung field: diminished 12/01/2016 None Full Exam - General 1994 Respiratory respiratory effort/rhythm Overall: no retractions 12/01/2016 None Full Exam - General 1994 Respiratory respiratory effort/rhythm Overall: normal rate 12/01/2016 None Full Exam - General 1994 Cardiovascular auscultation of heart Overall: regular rate 12/01/2016 None Full Exam - General 1994 Cardiovascular auscultation of heart Overall: normal heart sounds 12/01/2016 None Full Exam - General 1994 Abdomen abdominal exam Overall: no tenderness 12/01/2016 None Full Exam - General 1994 Abdomen abdominal exam Overall: normal bowel sounds 12/01/2016 None Full Exam - General 1994 Lymphatic neck nodes Overall: anterior cervical chain benign 12/01/2016 None Full Exam - General 1994 Lymphatic neck nodes Overall: posterior cervical chain benign 12/01/2016 None Full Exam - General 1994 Musculoskeletal spine, ribs and pelvis Overall: good posture 12/01/2016 None Full Exam - General 1994 Musculoskeletal head and neck Overall: head atraumatic 12/01/2016 None Full Exam - General 1994 Neurologic gait Overall: no ataxia, no unsteadiness 12/01/2016 None Full Exam - General 1994 Neurologic cranial nerves Overall: crainial nerves 2 - 12 grossly intact 12/01/2016 None Full Exam - General 1994 Psychiatric orientation/consciousness Overall: oriented to person, place and time 12/01/2016 None Full Exam - General 1994 Psychiatric mood and affect Overall: normal mood and affect 12/01/2016 None Full Exam - General 1994 Psychiatric appearance Overall: well-groomed, good eye contact 12/01/2016 None Full Exam - General 1994 Constitutional general appearance Overall: well developed 11/25/2016 None Full Exam - General 1994 Constitutional general appearance Overall: in no acute distress 11/25/2016 None Full Exam - General 1994 Constitutional general appearance Overall: well nourished 11/25/2016 None Full Exam - General 1994 Eyes pupils and irises Overall: pupils equal, round, reactive to light and accomodation 11/25/2016 None Full Exam - General 1994 Ears/Nose/Throat otoscopic exam Overall: external auditory canals clear 11/25/2016 None Full Exam - General 1994 Ears/Nose/Throat otoscopic exam Overall: tympanic membranes clear 11/25/2016 None Full Exam - General 1994 Ears/Nose/Throat internal nose Overall: no sinus tenderness 11/25/2016 None Full Exam - General 1994 Ears/Nose/Throat lips/teeth/gingiva Overall: benign lips 11/25/2016 None Full Exam - General 1994 Ears/Nose/Throat oral cavity/pharynx/larynx Oral mucosa: thrush 11/25/2016 None Full Exam - General 1994 Respiratory auscultation Upper lung field: diminished 11/25/2016 None Full Exam - General 1994 Respiratory respiratory effort/rhythm Overall: no retractions 11/25/2016 None Full Exam - General 1994 Respiratory respiratory effort/rhythm Overall: normal rate 11/25/2016 None Full Exam - General 1994 Cardiovascular auscultation of heart Overall: regular rate 11/25/2016 None Full Exam - General 1994 Cardiovascular auscultation of heart Overall: normal heart sounds 11/25/2016 None Full Exam - General 1994 Abdomen abdominal exam Overall: no tenderness 11/25/2016 None Full Exam - General 1994 Abdomen abdominal exam Overall: normal bowel sounds 11/25/2016 None Full Exam - General 1994 Lymphatic neck nodes Overall: anterior cervical chain benign 11/25/2016 None Full Exam - General 1994 Lymphatic neck nodes Overall: posterior cervical chain benign 11/25/2016 None Full Exam - General 1994 Musculoskeletal spine, ribs and pelvis Overall: good posture 11/25/2016 None Full Exam - General 1994 Musculoskeletal head and neck Overall: head atraumatic 11/25/2016 None Full Exam - General 1994 Neurologic gait Overall: no ataxia, no unsteadiness 11/25/2016 None Full Exam - General 1994 Neurologic cranial nerves Overall: crainial nerves 2 - 12 grossly intact 11/25/2016 None Full Exam - General 1994 Psychiatric orientation/consciousness Overall: oriented to person, place and time 11/25/2016 None Full Exam - General 1994 Psychiatric mood and affect Overall: normal mood and affect 11/25/2016 None Full Exam - General 1994 Psychiatric appearance Overall: well-groomed, good eye contact 11/25/2016 None Full Exam - General 1994 Constitutional general appearance Overall: well developed 11/18/2016 None Full Exam - General 1994 Constitutional general appearance Overall: in no acute distress 11/18/2016 None Full Exam - General 1994 Constitutional general appearance Overall: well nourished 11/18/2016 None Full Exam - General 1994 Eyes pupils and irises Overall: pupils equal, round, reactive to light and accomodation 11/18/2016 None Full Exam - General 1994 Ears/Nose/Throat otoscopic exam Overall: external auditory canals clear 11/18/2016 None Full Exam - General 1994 Ears/Nose/Throat otoscopic exam Overall: tympanic membranes clear 11/18/2016 None Full Exam - General 1994 Ears/Nose/Throat internal nose Overall: no sinus tenderness 11/18/2016 None Full Exam - General 1994 Ears/Nose/Throat lips/teeth/gingiva Overall: benign lips 11/18/2016 None Full Exam - General 1994 Respiratory respiratory effort/rhythm Overall: no retractions 11/18/2016 None Full Exam - General 1994 Respiratory respiratory effort/rhythm Overall: normal rate 11/18/2016 None Full Exam - General 1994 Cardiovascular auscultation of heart Overall: regular rate 11/18/2016 None Full Exam - General 1994 Cardiovascular auscultation of heart Overall: normal heart sounds 11/18/2016 None Full Exam - General 1994 Abdomen abdominal exam Overall: no tenderness 11/18/2016 None Full Exam - General 1994 Abdomen abdominal exam Overall: normal bowel sounds 11/18/2016 None Full Exam - General 1994 Lymphatic neck nodes Overall: anterior cervical chain benign 11/18/2016 None Full Exam - General 1994 Lymphatic neck nodes Overall: posterior cervical chain benign 11/18/2016 None Full Exam - General 1994 Musculoskeletal spine, ribs and pelvis Overall: good posture 11/18/2016 None Full Exam - General 1994 Musculoskeletal head and neck Overall: head atraumatic 11/18/2016 None Full Exam - General 1994 Neurologic gait Overall: no ataxia, no unsteadiness 11/18/2016 None Full Exam - General 1994 Neurologic cranial nerves Overall: crainial nerves 2 - 12 grossly intact 11/18/2016 None Full Exam - General 1994 Psychiatric orientation/consciousness Overall: oriented to person, place and time 11/18/2016 None Full Exam - General 1994 Psychiatric mood and affect Overall: normal mood and affect 11/18/2016 None Full Exam - General 1994 Psychiatric appearance Overall: well-groomed, good eye contact 11/18/2016 None Full Exam - General 1994 Respiratory auscultation Upper lung field: diminished 11/18/2016 None Full Exam - General 1994 Ears/Nose/Throat oral cavity/pharynx/larynx Oral mucosa: thrush 11/18/2016 None Full Exam - General 1994 Constitutional general appearance Overall: well developed 08/23/2016 None Full Exam - General 1994 Constitutional general appearance Overall: in no acute distress 08/23/2016 None Full Exam - General 1994 Constitutional general appearance Overall: well nourished 08/23/2016 None Full Exam - General 1994 Eyes pupils and irises Overall: pupils equal, round, reactive to light and accomodation 08/23/2016 None Full Exam - General 1994 Ears/Nose/Throat otoscopic exam Overall: external auditory canals clear 08/23/2016 None Full Exam - General 1994 Ears/Nose/Throat otoscopic exam Overall: tympanic membranes clear 08/23/2016 None Full Exam - General 1994 Ears/Nose/Throat oral cavity/pharynx/larynx Overall: oral mucosa clear 08/23/2016 None Full Exam - General 1994 Ears/Nose/Throat oral cavity/pharynx/larynx Overall: oropharyngeal mucosa clear 08/23/2016 None Full Exam - General 1994 Ears/Nose/Throat oral cavity/pharynx/larynx Overall: no masses 08/23/2016 None Full Exam - General 1994 Respiratory auscultation Overall: breath sounds clear bilaterally 08/23/2016 None Full Exam - General 1994 Respiratory respiratory effort/rhythm Overall: no retractions 08/23/2016 None Full Exam - General 1994 Respiratory respiratory effort/rhythm Overall: normal rate 08/23/2016 None Full Exam - General 1994 Cardiovascular auscultation of heart Overall: regular rate 08/23/2016 None Full Exam - General 1994 Cardiovascular auscultation of heart Overall: normal heart sounds 08/23/2016 None Full Exam - General 1994 Abdomen abdominal exam Overall: no tenderness 08/23/2016 None Full Exam - General 1994 Abdomen abdominal exam Overall: normal bowel sounds 08/23/2016 None Full Exam - General 1994 Lymphatic neck nodes Overall: anterior cervical chain benign 08/23/2016 None Full Exam - General 1994 Lymphatic neck nodes Overall: posterior cervical chain benign 08/23/2016 None Full Exam - General 1994 Musculoskeletal spine, ribs and pelvis Overall: ribs benign 08/23/2016 None Full Exam - General 1994 Musculoskeletal spine, ribs and pelvis Overall: spine benign 08/23/2016 None Full Exam - General 1994 Musculoskeletal spine, ribs and pelvis Overall: sacroiliac joint benign 08/23/2016 None Full Exam - General 1994 Musculoskeletal spine, ribs and pelvis Overall: right hip benign 08/23/2016 None Full Exam - General 1994 Musculoskeletal spine, ribs and pelvis Overall: left hip benign 08/23/2016 None Full Exam - General 1994 Musculoskeletal spine, ribs and pelvis Overall: good posture 08/23/2016 None Full Exam - General 1994 Musculoskeletal head and neck Overall: head atraumatic 08/23/2016 None Full Exam - General 1994 Musculoskeletal head and neck Overall: cervical spine benign 08/23/2016 None Full Exam - General 1994 Neurologic gait Overall: no ataxia, no unsteadiness 08/23/2016 None Full Exam - General 1994 Psychiatric orientation/consciousness Overall: oriented to person, place and time 08/23/2016 None Full Exam - General 1994 Psychiatric mood and affect Overall: normal mood and affect 08/23/2016 None Full Exam - General 1994 Constitutional general appearance Overall: well developed 04/26/2016 None Full Exam - General 1994 Constitutional general appearance Overall: in no acute distress 04/26/2016 None Full Exam - General 1994 Constitutional general appearance Overall: well nourished 04/26/2016 None Full Exam - General 1994 Eyes pupils and irises Overall: pupils equal, round, reactive to light and accomodation 04/26/2016 None Full Exam - General 1994 Ears/Nose/Throat otoscopic exam Overall: external auditory canals clear 04/26/2016 None Full Exam - General 1994 Ears/Nose/Throat otoscopic exam Overall: tympanic membranes clear 04/26/2016 None Full Exam - General 1994 Ears/Nose/Throat oral cavity/pharynx/larynx Overall: oral mucosa clear 04/26/2016 None Full Exam - General 1994 Ears/Nose/Throat oral cavity/pharynx/larynx Overall: oropharyngeal mucosa clear 04/26/2016 None Full Exam - General 1994 Ears/Nose/Throat oral cavity/pharynx/larynx Overall: no masses 04/26/2016 None Full Exam - General 1994 Respiratory auscultation Overall: breath sounds clear bilaterally 04/26/2016 None Full Exam - General 1994 Respiratory respiratory effort/rhythm Overall: no retractions 04/26/2016 None Full Exam - General 1994 Respiratory respiratory effort/rhythm Overall: normal rate 04/26/2016 None Full Exam - General 1994 Cardiovascular auscultation of heart Overall: regular rate 04/26/2016 None Full Exam - General 1994 Cardiovascular auscultation of heart Overall: normal heart sounds 04/26/2016 None Full Exam - General 1994 Abdomen abdominal exam Overall: no tenderness 04/26/2016 None Full Exam - General 1994 Abdomen abdominal exam Overall: normal bowel sounds 04/26/2016 None Full Exam - General 1994 Lymphatic neck nodes Overall: anterior cervical chain benign 04/26/2016 None Full Exam - General 1994 Lymphatic neck nodes Overall: posterior cervical chain benign 04/26/2016 None Full Exam - General 1994 Musculoskeletal spine, ribs and pelvis Overall: ribs benign 04/26/2016 None Full Exam - General 1994 Musculoskeletal spine, ribs and pelvis Overall: spine benign 04/26/2016 None Full Exam - General 1994 Musculoskeletal spine, ribs and pelvis Overall: sacroiliac joint benign 04/26/2016 None Full Exam - General 1994 Musculoskeletal spine, ribs and pelvis Overall: right hip benign 04/26/2016 None Full Exam - General 1994 Musculoskeletal spine, ribs and pelvis Overall: left hip benign 04/26/2016 None Full Exam - General 1994 Musculoskeletal spine, ribs and pelvis Overall: good posture 04/26/2016 None Full Exam - General 1994 Musculoskeletal head and neck Overall: head atraumatic 04/26/2016 None Full Exam - General 1994 Musculoskeletal head and neck Overall: cervical spine benign 04/26/2016 None Full Exam - General 1994 Neurologic gait Overall: no ataxia, no unsteadiness 04/26/2016 None Full Exam - General 1994 Psychiatric orientation/consciousness Overall: oriented to person, place and time 04/26/2016 None Full Exam - General 1994 Psychiatric mood and affect Overall: normal mood and affect 04/26/2016 None Full Exam - Orthopedics Constitutional general appearance Overall: well nourished 02/17/2016 None Full Exam - Orthopedics Constitutional general appearance Overall: well developed 02/17/2016 None Full Exam - Orthopedics Constitutional general appearance Overall: in no acute distress 02/17/2016 None Full Exam - Orthopedics Constitutional general appearance Overall: normal body habitus 02/17/2016 None Full Exam - Orthopedics MS: right upper extremity insp & palp - RUE Elbow: olecranon swelling 02/17/2016 prepped and draped and 19cc serosangious drainage removed with #22 g needle and syringe. Covered with bandiad and gauze dressing and ALEXEY wrap for compression. Patient tolerated well. Full Exam - Orthopedics MS: right upper extremity range of motion - RUE Elbow: full range of motion 02/17/2016 None Full Exam - Orthopedics MS: right upper extremity stability - RUE Overall: shoulder, elbow, wrist stable 02/17/2016 None Full Exam - Orthopedics MS: right upper extremity strength & tone - RUE Elbow strength: normal flexion with 5/5 strength 02/17/2016 None Full Exam - Orthopedics Psychiatric orientation/consciousness Overall: oriented to person, place and time 02/17/2016 None Full Exam - Orthopedics Constitutional general appearance Overall: well nourished 02/09/2016 None Full Exam - Orthopedics Constitutional general appearance Overall: well developed 02/09/2016 None Full Exam - Orthopedics Constitutional general appearance Overall: in no acute distress 02/09/2016 None Full Exam - Orthopedics Constitutional general appearance Overall: normal body habitus 02/09/2016 None Full Exam - Orthopedics MS: right upper extremity insp & palp - RUE Elbow: olecranon swelling 02/09/2016 prepped and draped and 19cc serosangious drainage removed with #22 g needle and syringe. Covered with bandiad and gauze dressing and ALEXEY wrap for compression. Patient tolerated well. Full Exam - Orthopedics MS: right upper extremity range of motion - RUE Elbow: full range of motion 02/09/2016 None Full Exam - Orthopedics MS: right upper extremity stability - RUE Overall: shoulder, elbow, wrist stable 02/09/2016 None Full Exam - Orthopedics MS: right upper extremity strength & tone - RUE Elbow strength: normal flexion with 5/5 strength 02/09/2016 None Full Exam - Orthopedics Psychiatric orientation/consciousness Overall: oriented to person, place and time 02/09/2016 None Full Exam - Orthopedics Constitutional general appearance Overall: well nourished 02/03/2016 None Full Exam - Orthopedics Constitutional general appearance Overall: well developed 02/03/2016 None Full Exam - Orthopedics Constitutional general appearance Overall: in no acute distress 02/03/2016 None Full Exam - Orthopedics Constitutional general appearance Overall: normal body habitus 02/03/2016 None Full Exam - Orthopedics Psychiatric orientation/consciousness Overall: oriented to person, place and time 02/03/2016 None Full Exam - Orthopedics MS: right upper extremity insp & palp - RUE Elbow: olecranon swelling 02/03/2016 prepped and draped and 22cc serosangious drainage removed with #22 g needle and syringe. Covered with bandiad and gauze dressing. Patient tolerated well. Full Exam - Orthopedics MS: right upper extremity range of motion - RUE Elbow: full range of motion 02/03/2016 None Full Exam - Orthopedics MS: right upper extremity stability - RUE Overall: shoulder, elbow, wrist stable 02/03/2016 None Full Exam - Orthopedics MS: right upper extremity strength & tone - RUE Elbow strength: normal flexion with 5/5 strength 02/03/2016 None Full Exam - General 1994 Constitutional general appearance Overall: well developed 01/26/2016 None Full Exam - General 1994 Constitutional general appearance Overall: in no acute distress 01/26/2016 None Full Exam - General 1994 Constitutional general appearance Overall: well nourished 01/26/2016 None Full Exam - General 1994 Eyes pupils and irises Overall: pupils equal, round, reactive to light and accomodation 01/26/2016 None Full Exam - General 1994 Respiratory auscultation Overall: breath sounds clear bilaterally 01/26/2016 None Full Exam - General 1994 Respiratory respiratory effort/rhythm Overall: no retractions 01/26/2016 None Full Exam - General 1994 Respiratory respiratory effort/rhythm Overall: normal rate 01/26/2016 None Full Exam - General 1994 Cardiovascular auscultation of heart Overall: regular rate 01/26/2016 None Full Exam - General 1994 Cardiovascular auscultation of heart Overall: normal heart sounds 01/26/2016 None Full Exam - General 1994 Abdomen abdominal exam Overall: normal bowel sounds 01/26/2016 None Full Exam - General 1994 Musculoskeletal spine, ribs and pelvis Overall: good posture 01/26/2016 None Full Exam - General 1994 Musculoskeletal head and neck Overall: head atraumatic 01/26/2016 None Full Exam - General 1994 Neurologic gait Overall: no ataxia, no unsteadiness 01/26/2016 None Full Exam - General 1994 Psychiatric orientation/consciousness Overall: oriented to person, place and time 01/26/2016 None Full Exam - General 1994 Psychiatric mood and affect Overall: normal mood and affect 01/26/2016 None Full Exam - General 1994 Abdomen abdominal exam Upper quadrant: tender to palpation 01/26/2016 None Full Exam - General 1994 Constitutional general appearance Overall: well developed 01/21/2016 None Full Exam - General 1994 Constitutional general appearance Overall: in no acute distress 01/21/2016 None Full Exam - General 1994 Constitutional general appearance Overall: well nourished 01/21/2016 None Full Exam - General 1994 Eyes pupils and irises Overall: pupils equal, round, reactive to light and accomodation 01/21/2016 None Full Exam - General 1994 Ears/Nose/Throat otoscopic exam Overall: external auditory canals clear 01/21/2016 None Full Exam - General 1994 Ears/Nose/Throat otoscopic exam Overall: tympanic membranes clear 01/21/2016 None Full Exam - General 1994 Ears/Nose/Throat oral cavity/pharynx/larynx Overall: oral mucosa clear 01/21/2016 None Full Exam - General 1994 Ears/Nose/Throat oral cavity/pharynx/larynx Overall: oropharyngeal mucosa clear 01/21/2016 None Full Exam - General 1994 Ears/Nose/Throat oral cavity/pharynx/larynx Overall: no masses 01/21/2016 None Full Exam - General 1994 Respiratory auscultation Overall: breath sounds clear bilaterally 01/21/2016 None Full Exam - General 1994 Respiratory respiratory effort/rhythm Overall: no retractions 01/21/2016 None Full Exam - General 1994 Respiratory respiratory effort/rhythm Overall: normal rate 01/21/2016 None Full Exam - General 1994 Cardiovascular auscultation of heart Overall: regular rate 01/21/2016 None Full Exam - General 1994 Cardiovascular auscultation of heart Overall: normal heart sounds 01/21/2016 None Full Exam - General 1994 Abdomen abdominal exam Overall: no tenderness 01/21/2016 None Full Exam - General 1994 Abdomen abdominal exam Overall: normal bowel sounds 01/21/2016 None Full Exam - General 1994 Lymphatic neck nodes Overall: anterior cervical chain benign 01/21/2016 None Full Exam - General 1994 Lymphatic neck nodes Overall: posterior cervical chain benign 01/21/2016 None Full Exam - General 1994 Musculoskeletal spine, ribs and pelvis Overall: good posture 01/21/2016 None Full Exam - General 1994 Musculoskeletal head and neck Overall: head atraumatic 01/21/2016 None Full Exam - General 1994 Neurologic gait Overall: no ataxia, no unsteadiness 01/21/2016 None Full Exam - General 1994 Psychiatric orientation/consciousness Overall: oriented to person, place and time 01/21/2016 None Full Exam - General 1994 Psychiatric mood and affect Overall: normal mood and affect 01/21/2016 None Full Exam - General 1994 Ears/Nose/Throat lips/teeth/gingiva Overall: benign lips 01/21/2016 None Full Exam - General 1994 Ears/Nose/Throat internal nose Overall: no sinus tenderness 01/21/2016 None Full Exam - General 1994 Neurologic cranial nerves Overall: crainial nerves 2 - 12 grossly intact 01/21/2016 None Full Exam - General 1994 Psychiatric appearance Overall: well-groomed, good eye contact 01/21/2016 None Full Exam - General 1994 Ears/Nose/Throat oral cavity/pharynx/larynx Posterior Pharynx: clear post nasal drainage 01/21/2016 None Full Exam - General 1994 Constitutional general appearance Overall: well developed 12/29/2015 None Full Exam - General 1994 Constitutional general appearance Overall: in no acute distress 12/29/2015 None Full Exam - General 1994 Constitutional general appearance Overall: well nourished 12/29/2015 None Full Exam - General 1994 Eyes pupils and irises Overall: pupils equal, round, reactive to light and accomodation 12/29/2015 None Full Exam - General 1994 Ears/Nose/Throat otoscopic exam Overall: external auditory canals clear 12/29/2015 None Full Exam - General 1994 Ears/Nose/Throat otoscopic exam Overall: tympanic membranes clear 12/29/2015 None Full Exam - General 1994 Ears/Nose/Throat oral cavity/pharynx/larynx Overall: oral mucosa clear 12/29/2015 None Full Exam - General 1994 Ears/Nose/Throat oral cavity/pharynx/larynx Overall: oropharyngeal mucosa clear 12/29/2015 None Full Exam - General 1994 Ears/Nose/Throat oral cavity/pharynx/larynx Overall: no masses 12/29/2015 None Full Exam - General 1994 Respiratory auscultation Overall: breath sounds clear bilaterally 12/29/2015 None Full Exam - General 1994 Respiratory respiratory effort/rhythm Overall: no retractions 12/29/2015 None Full Exam - General 1994 Respiratory respiratory effort/rhythm Overall: normal rate 12/29/2015 None Full Exam - General 1994 Cardiovascular auscultation of heart Overall: regular rate 12/29/2015 None Full Exam - General 1994 Cardiovascular auscultation of heart Overall: normal heart sounds 12/29/2015 None Full Exam - General 1994 Abdomen abdominal exam Overall: no tenderness 12/29/2015 None Full Exam - General 1994 Abdomen abdominal exam Overall: normal bowel sounds 12/29/2015 None Full Exam - General 1994 Lymphatic neck nodes Overall: anterior cervical chain benign 12/29/2015 None Full Exam - General 1994 Lymphatic neck nodes Overall: posterior cervical chain benign 12/29/2015 None Full Exam - General 1994 Musculoskeletal spine, ribs and pelvis Overall: ribs benign 12/29/2015 None Full Exam - General 1994 Musculoskeletal spine, ribs and pelvis Overall: spine benign 12/29/2015 None Full Exam - General 1994 Musculoskeletal spine, ribs and pelvis Overall: sacroiliac joint benign 12/29/2015 None Full Exam - General 1994 Musculoskeletal spine, ribs and pelvis Overall: right hip benign 12/29/2015 None Full Exam - General 1994 Musculoskeletal spine, ribs and pelvis Overall: left hip benign 12/29/2015 None Full Exam - General 1994 Musculoskeletal spine, ribs and pelvis Overall: good posture 12/29/2015 None Full Exam - General 1994 Musculoskeletal head and neck Overall: head atraumatic 12/29/2015 None Full Exam - General 1994 Musculoskeletal head and neck Overall: cervical spine benign 12/29/2015 None Full Exam - General 1994 Neurologic gait Overall: no ataxia, no unsteadiness 12/29/2015 None Full Exam - General 1994 Psychiatric orientation/consciousness Overall: oriented to person, place and time 12/29/2015 None Full Exam - General 1994 Psychiatric mood and affect Overall: normal mood and affect 12/29/2015 None Full Exam - General 1994 Constitutional general appearance Overall: well developed 09/02/2015 None Full Exam - General 1994 Constitutional general appearance Overall: in no acute distress 09/02/2015 None Full Exam - General 1994 Constitutional general appearance Overall: well nourished 09/02/2015 None Full Exam - General 1994 Eyes pupils and irises Overall: pupils equal, round, reactive to light and accomodation 09/02/2015 None Full Exam - General 1994 Ears/Nose/Throat otoscopic exam Overall: external auditory canals clear 09/02/2015 None Full Exam - General 1994 Ears/Nose/Throat otoscopic exam Overall: tympanic membranes clear 09/02/2015 None Full Exam - General 1994 Ears/Nose/Throat oral cavity/pharynx/larynx Overall: oral mucosa clear 09/02/2015 None Full Exam - General 1994 Ears/Nose/Throat oral cavity/pharynx/larynx Overall: oropharyngeal mucosa clear 09/02/2015 None Full Exam - General 1994 Ears/Nose/Throat oral cavity/pharynx/larynx Overall: no masses 09/02/2015 None Full Exam - General 1994 Respiratory auscultation Overall: breath sounds clear bilaterally 09/02/2015 None Full Exam - General 1994 Respiratory respiratory effort/rhythm Overall: no retractions 09/02/2015 None Full Exam - General 1994 Respiratory respiratory effort/rhythm Overall: normal rate 09/02/2015 None Full Exam - General 1994 Cardiovascular auscultation of heart Overall: regular rate 09/02/2015 None Full Exam - General 1994 Cardiovascular auscultation of heart Overall: normal heart sounds 09/02/2015 None Full Exam - General 1994 Abdomen abdominal exam Overall: no tenderness 09/02/2015 None Full Exam - General 1994 Abdomen abdominal exam Overall: normal bowel sounds 09/02/2015 None Full Exam - General 1994 Lymphatic neck nodes Overall: anterior cervical chain benign 09/02/2015 None Full Exam - General 1994 Lymphatic neck nodes Overall: posterior cervical chain benign 09/02/2015 None Full Exam - General 1994 Musculoskeletal spine, ribs and pelvis Overall: ribs benign 09/02/2015 None Full Exam - General 1994 Musculoskeletal spine, ribs and pelvis Overall: spine benign 09/02/2015 None Full Exam - General 1994 Musculoskeletal spine, ribs and pelvis Overall: sacroiliac joint benign 09/02/2015 None Full Exam - General 1994 Musculoskeletal spine, ribs and pelvis Overall: right hip benign 09/02/2015 None Full Exam - General 1994 Musculoskeletal spine, ribs and pelvis Overall: left hip benign 09/02/2015 None Full Exam - General 1994 Musculoskeletal spine, ribs and pelvis Overall: good posture 09/02/2015 None Full Exam - General 1994 Musculoskeletal head and neck Overall: head atraumatic 09/02/2015 None Full Exam - General 1994 Musculoskeletal head and neck Overall: cervical spine benign 09/02/2015 None Full Exam - General 1994 Neurologic gait Overall: no ataxia, no unsteadiness 09/02/2015 None Full Exam - General 1994 Psychiatric orientation/consciousness Overall: oriented to person, place and time 09/02/2015 None Full Exam - General 1994 Psychiatric mood and affect Overall: normal mood and affect 09/02/2015 None Full Exam - General 1994 Constitutional general appearance Overall: well developed 05/06/2015 None Full Exam - General 1994 Constitutional general appearance Overall: in no acute distress 05/06/2015 None Full Exam - General 1994 Constitutional general appearance Overall: well nourished 05/06/2015 None Full Exam - General 1994 Eyes pupils and irises Overall: pupils equal, round, reactive to light and accomodation 05/06/2015 None Full Exam - General 1994 Ears/Nose/Throat otoscopic exam Overall: external auditory canals clear 05/06/2015 None Full Exam - General 1994 Ears/Nose/Throat otoscopic exam Overall: tympanic membranes clear 05/06/2015 None Full Exam - General 1994 Ears/Nose/Throat oral cavity/pharynx/larynx Overall: oral mucosa clear 05/06/2015 None Full Exam - General 1994 Ears/Nose/Throat oral cavity/pharynx/larynx Overall: oropharyngeal mucosa clear 05/06/2015 None Full Exam - General 1994 Ears/Nose/Throat oral cavity/pharynx/larynx Overall: no masses 05/06/2015 None Full Exam - General 1994 Respiratory auscultation Overall: breath sounds clear bilaterally 05/06/2015 None Full Exam - General 1994 Respiratory respiratory effort/rhythm Overall: no retractions 05/06/2015 None Full Exam - General 1994 Respiratory respiratory effort/rhythm Overall: normal rate 05/06/2015 None Full Exam - General 1994 Cardiovascular auscultation of heart Overall: regular rate 05/06/2015 None Full Exam - General 1994 Cardiovascular auscultation of heart Overall: normal heart sounds 05/06/2015 None Full Exam - General 1994 Abdomen abdominal exam Overall: no tenderness 05/06/2015 None Full Exam - General 1994 Abdomen abdominal exam Overall: normal bowel sounds 05/06/2015 None Full Exam - General 1994 Lymphatic neck nodes Overall: anterior cervical chain benign 05/06/2015 None Full Exam - General 1994 Lymphatic neck nodes Overall: posterior cervical chain benign 05/06/2015 None Full Exam - General 1994 Musculoskeletal spine, ribs and pelvis Overall: ribs benign 05/06/2015 None Full Exam - General 1994 Musculoskeletal spine, ribs and pelvis Overall: spine benign 05/06/2015 None Full Exam - General 1994 Musculoskeletal spine, ribs and pelvis Overall: sacroiliac joint benign 05/06/2015 None Full Exam - General 1994 Musculoskeletal spine, ribs and pelvis Overall: right hip benign 05/06/2015 None Full Exam - General 1994 Musculoskeletal spine, ribs and pelvis Overall: left hip benign 05/06/2015 None Full Exam - General 1994 Musculoskeletal spine, ribs and pelvis Overall: good posture 05/06/2015 None Full Exam - General 1994 Musculoskeletal head and neck Overall: head atraumatic 05/06/2015 None Full Exam - General 1994 Musculoskeletal head and neck Overall: cervical spine benign 05/06/2015 None Full Exam - General 1994 Neurologic gait Overall: no ataxia, no unsteadiness 05/06/2015 None Full Exam - General 1994 Psychiatric orientation/consciousness Overall: oriented to person, place and time 05/06/2015 None Full Exam - General 1994 Psychiatric mood and affect Overall: normal mood and affect 05/06/2015 None Full Exam - General 1994 Constitutional general appearance Overall: well developed 03/05/2015 None Full Exam - General 1994 Constitutional general appearance Overall: in no acute distress 03/05/2015 None Full Exam - General 1994 Constitutional general appearance Overall: well nourished 03/05/2015 None Full Exam - General 1994 Eyes pupils and irises Overall: pupils equal, round, reactive to light and accomodation 03/05/2015 None Full Exam - General 1994 Ears/Nose/Throat otoscopic exam Overall: external auditory canals clear 03/05/2015 None Full Exam - General 1994 Ears/Nose/Throat otoscopic exam Overall: tympanic membranes clear 03/05/2015 None Full Exam - General 1994 Ears/Nose/Throat oral cavity/pharynx/larynx Overall: oral mucosa clear 03/05/2015 None Full Exam - General 1994 Ears/Nose/Throat oral cavity/pharynx/larynx Overall: oropharyngeal mucosa clear 03/05/2015 None Full Exam - General 1994 Ears/Nose/Throat oral cavity/pharynx/larynx Overall: no masses 03/05/2015 None Full Exam - General 1994 Respiratory auscultation Overall: breath sounds clear bilaterally 03/05/2015 None Full Exam - General 1994 Respiratory respiratory effort/rhythm Overall: no retractions 03/05/2015 None Full Exam - General 1994 Respiratory respiratory effort/rhythm Overall: normal rate 03/05/2015 None Full Exam - General 1994 Cardiovascular auscultation of heart Overall: regular rate 03/05/2015 None Full Exam - General 1994 Cardiovascular auscultation of heart Overall: normal heart sounds 03/05/2015 None Full Exam - General 1994 Abdomen abdominal exam Overall: no tenderness 03/05/2015 None Full Exam - General 1994 Abdomen abdominal exam Overall: normal bowel sounds 03/05/2015 None Full Exam - General 1994 Lymphatic neck nodes Overall: anterior cervical chain benign 03/05/2015 None Full Exam - General 1994 Lymphatic neck nodes Overall: posterior cervical chain benign 03/05/2015 None Full Exam - General 1994 Musculoskeletal spine, ribs and pelvis Overall: ribs benign 03/05/2015 None Full Exam - General 1994 Musculoskeletal spine, ribs and pelvis Overall: spine benign 03/05/2015 None Full Exam - General 1994 Musculoskeletal spine, ribs and pelvis Overall: sacroiliac joint benign 03/05/2015 None Full Exam - General 1994 Musculoskeletal spine, ribs and pelvis Overall: right hip benign 03/05/2015 None Full Exam - General 1994 Musculoskeletal spine, ribs and pelvis Overall: left hip benign 03/05/2015 None Full Exam - General 1994 Musculoskeletal spine, ribs and pelvis Overall: good posture 03/05/2015 None Full Exam - General 1994 Musculoskeletal head and neck Overall: head atraumatic 03/05/2015 None Full Exam - General 1994 Musculoskeletal head and neck Overall: cervical spine benign 03/05/2015 None Full Exam - General 1994 Neurologic gait Overall: no ataxia, no unsteadiness 03/05/2015 None Full Exam - General 1994 Psychiatric orientation/consciousness Overall: oriented to person, place and time 03/05/2015 None Full Exam - General 1994 Psychiatric mood and affect Overall: normal mood and affect 03/05/2015 None Full Exam - General 1994 Constitutional general appearance Overall: well developed 12/04/2014 None Full Exam - General 1994 Constitutional general appearance Overall: in no acute distress 12/04/2014 None Full Exam - General 1994 Constitutional general appearance Overall: well nourished 12/04/2014 None Full Exam - General 1994 Eyes pupils and irises Overall: pupils equal, round, reactive to light and accomodation 12/04/2014 None Full Exam - General 1994 Ears/Nose/Throat otoscopic exam Overall: external auditory canals clear 12/04/2014 None Full Exam - General 1994 Ears/Nose/Throat otoscopic exam Overall: tympanic membranes clear 12/04/2014 None Full Exam - General 1994 Ears/Nose/Throat oral cavity/pharynx/larynx Overall: oral mucosa clear 12/04/2014 None Full Exam - General 1994 Ears/Nose/Throat oral cavity/pharynx/larynx Overall: oropharyngeal mucosa clear 12/04/2014 None Full Exam - General 1994 Ears/Nose/Throat oral cavity/pharynx/larynx Overall: no masses 12/04/2014 None Full Exam - General 1994 Respiratory auscultation Overall: breath sounds clear bilaterally 12/04/2014 None Full Exam - General 1994 Respiratory respiratory effort/rhythm Overall: no retractions 12/04/2014 None Full Exam - General 1994 Respiratory respiratory effort/rhythm Overall: normal rate 12/04/2014 None Full Exam - General 1994 Cardiovascular auscultation of heart Overall: regular rate 12/04/2014 None Full Exam - General 1994 Cardiovascular auscultation of heart Overall: normal heart sounds 12/04/2014 None Full Exam - General 1994 Abdomen abdominal exam Overall: no tenderness 12/04/2014 None Full Exam - General 1994 Abdomen abdominal exam Overall: normal bowel sounds 12/04/2014 None Full Exam - General 1994 Lymphatic neck nodes Overall: anterior cervical chain benign 12/04/2014 None Full Exam - General 1994 Lymphatic neck nodes Overall: posterior cervical chain benign 12/04/2014 None Full Exam - General 1994 Musculoskeletal spine, ribs and pelvis Overall: ribs benign 12/04/2014 None Full Exam - General 1994 Musculoskeletal spine, ribs and pelvis Overall: spine benign 12/04/2014 None Full Exam - General 1994 Musculoskeletal spine, ribs and pelvis Overall: sacroiliac joint benign 12/04/2014 None Full Exam - General 1994 Musculoskeletal spine, ribs and pelvis Overall: right hip benign 12/04/2014 None Full Exam - General 1994 Musculoskeletal spine, ribs and pelvis Overall: left hip benign 12/04/2014 None Full Exam - General 1994 Musculoskeletal spine, ribs and pelvis Overall: good posture 12/04/2014 None Full Exam - General 1994 Musculoskeletal head and neck Overall: head atraumatic 12/04/2014 None Full Exam - General 1994 Musculoskeletal head and neck Overall: cervical spine benign 12/04/2014 None Full Exam - General 1994 Neurologic gait Overall: no ataxia, no unsteadiness 12/04/2014 None Full Exam - General 1994 Psychiatric orientation/consciousness Overall: oriented to person, place and time 12/04/2014 None Full Exam - General 1994 Psychiatric mood and affect Overall: normal mood and affect 12/04/2014 None Full Exam - General 1994 Constitutional general appearance Overall: well developed 09/24/2014 None Full Exam - General 1994 Constitutional general appearance Overall: in no acute distress 09/24/2014 None Full Exam - General 1994 Constitutional general appearance Overall: well nourished 09/24/2014 None Full Exam - General 1994 Eyes pupils and irises Overall: pupils equal, round, reactive to light and accomodation 09/24/2014 None Full Exam - General 1994 Ears/Nose/Throat otoscopic exam Overall: external auditory canals clear 09/24/2014 None Full Exam - General 1994 Ears/Nose/Throat otoscopic exam Overall: tympanic membranes clear 09/24/2014 None Full Exam - General 1994 Ears/Nose/Throat oral cavity/pharynx/larynx Overall: oral mucosa clear 09/24/2014 None Full Exam - General 1994 Ears/Nose/Throat oral cavity/pharynx/larynx Overall: oropharyngeal mucosa clear 09/24/2014 None Full Exam - General 1994 Ears/Nose/Throat oral cavity/pharynx/larynx Overall: no masses 09/24/2014 None Full Exam - General 1994 Respiratory auscultation Overall: breath sounds clear bilaterally 09/24/2014 None Full Exam - General 1994 Respiratory respiratory effort/rhythm Overall: no retractions 09/24/2014 None Full Exam - General 1994 Respiratory respiratory effort/rhythm Overall: normal rate 09/24/2014 None Full Exam - General 1994 Cardiovascular auscultation of heart Overall: regular rate 09/24/2014 None Full Exam - General 1994 Cardiovascular auscultation of heart Overall: normal heart sounds 09/24/2014 None Full Exam - General 1994 Abdomen abdominal exam Overall: no tenderness 09/24/2014 None Full Exam - General 1994 Abdomen abdominal exam Overall: normal bowel sounds 09/24/2014 None Full Exam - General 1994 Lymphatic neck nodes Overall: anterior cervical chain benign 09/24/2014 None Full Exam - General 1994 Lymphatic neck nodes Overall: posterior cervical chain benign 09/24/2014 None Full Exam - General 1994 Musculoskeletal spine, ribs and pelvis Overall: ribs benign 09/24/2014 None Full Exam - General 1994 Musculoskeletal spine, ribs and pelvis Overall: spine benign 09/24/2014 None Full Exam - General 1994 Musculoskeletal spine, ribs and pelvis Overall: sacroiliac joint benign 09/24/2014 None Full Exam - General 1994 Musculoskeletal spine, ribs and pelvis Overall: right hip benign 09/24/2014 None Full Exam - General 1994 Musculoskeletal spine, ribs and pelvis Overall: left hip benign 09/24/2014 None Full Exam - General 1994 Musculoskeletal spine, ribs and pelvis Overall: good posture 09/24/2014 None Full Exam - General 1994 Musculoskeletal head and neck Overall: head atraumatic 09/24/2014 None Full Exam - General 1994 Musculoskeletal head and neck Overall: cervical spine benign 09/24/2014 None Full Exam - General 1994 Neurologic gait Overall: no ataxia, no unsteadiness 09/24/2014 None Full Exam - General 1994 Psychiatric orientation/consciousness Overall: oriented to person, place and time 09/24/2014 None Full Exam - General 1994 Psychiatric mood and affect Overall: normal mood and affect 09/24/2014 None Full Exam - General 1994 Constitutional general appearance Overall: well developed 09/09/2014 None Full Exam - General 1994 Constitutional general appearance Overall: in no acute distress 09/09/2014 None Full Exam - General 1994 Constitutional general appearance Overall: well nourished 09/09/2014 None Full Exam - General 1994 Eyes pupils and irises Overall: pupils equal, round, reactive to light and accomodation 09/09/2014 None Full Exam - General 1994 Ears/Nose/Throat otoscopic exam Overall: external auditory canals clear 09/09/2014 None Full Exam - General 1994 Ears/Nose/Throat otoscopic exam Overall: tympanic membranes clear 09/09/2014 None Full Exam - General 1994 Ears/Nose/Throat oral cavity/pharynx/larynx Overall: oral mucosa clear 09/09/2014 None Full Exam - General 1994 Ears/Nose/Throat oral cavity/pharynx/larynx Overall: oropharyngeal mucosa clear 09/09/2014 None Full Exam - General 1994 Ears/Nose/Throat oral cavity/pharynx/larynx Overall: no masses 09/09/2014 None Full Exam - General 1994 Respiratory auscultation Overall: breath sounds clear bilaterally 09/09/2014 None Full Exam - General 1994 Respiratory respiratory effort/rhythm Overall: no retractions 09/09/2014 None Full Exam - General 1994 Respiratory respiratory effort/rhythm Overall: normal rate 09/09/2014 None Full Exam - General 1994 Cardiovascular auscultation of heart Overall: regular rate 09/09/2014 None Full Exam - General 1994 Cardiovascular auscultation of heart Overall: normal heart sounds 09/09/2014 None Full Exam - General 1994 Abdomen abdominal exam Overall: no tenderness 09/09/2014 None Full Exam - General 1994 Abdomen abdominal exam Overall: normal bowel sounds 09/09/2014 None Full Exam - General 1994 Lymphatic neck nodes Overall: anterior cervical chain benign 09/09/2014 None Full Exam - General 1994 Lymphatic neck nodes Overall: posterior cervical chain benign 09/09/2014 None Full Exam - General 1994 Musculoskeletal spine, ribs and pelvis Overall: ribs benign 09/09/2014 None Full Exam - General 1994 Musculoskeletal spine, ribs and pelvis Overall: spine benign 09/09/2014 None Full Exam - General 1994 Musculoskeletal spine, ribs and pelvis Overall: sacroiliac joint benign 09/09/2014 None Full Exam - General 1994 Musculoskeletal spine, ribs and pelvis Overall: right hip benign 09/09/2014 None Full Exam - General 1994 Musculoskeletal spine, ribs and pelvis Overall: left hip benign 09/09/2014 None Full Exam - General 1994 Musculoskeletal spine, ribs and pelvis Overall: good posture 09/09/2014 None Full Exam - General 1994 Musculoskeletal head and neck Overall: head atraumatic 09/09/2014 None Full Exam - General 1994 Musculoskeletal head and neck Overall: cervical spine benign 09/09/2014 None Full Exam - General 1994 Neurologic gait Overall: no ataxia, no unsteadiness 09/09/2014 None Full Exam - General 1994 Psychiatric orientation/consciousness Overall: oriented to person, place and time 09/09/2014 None Full Exam - General 1994 Psychiatric mood and affect Overall: normal mood and affect 09/09/2014 None Full Exam - General 1994 Constitutional general appearance Overall: well developed 07/26/2014 None Full Exam - General 1994 Constitutional general appearance Overall: in no acute distress 07/26/2014 None Full Exam - General 1994 Constitutional general appearance Overall: well nourished 07/26/2014 None Full Exam - General 1994 Eyes pupils and irises Overall: pupils equal, round, reactive to light and accomodation 07/26/2014 None Full Exam - General 1994 Ears/Nose/Throat otoscopic exam Overall: external auditory canals clear 07/26/2014 None Full Exam - General 1994 Ears/Nose/Throat otoscopic exam Overall: tympanic membranes clear 07/26/2014 None Full Exam - General 1994 Ears/Nose/Throat oral cavity/pharynx/larynx Overall: oral mucosa clear 07/26/2014 None Full Exam - General 1994 Ears/Nose/Throat oral cavity/pharynx/larynx Overall: oropharyngeal mucosa clear 07/26/2014 None Full Exam - General 1994 Ears/Nose/Throat oral cavity/pharynx/larynx Overall: no masses 07/26/2014 None Full Exam - General 1994 Respiratory auscultation Overall: breath sounds clear bilaterally 07/26/2014 None Full Exam - General 1994 Respiratory respiratory effort/rhythm Overall: no retractions 07/26/2014 None Full Exam - General 1994 Respiratory respiratory effort/rhythm Overall: normal rate 07/26/2014 None Full Exam - General 1994 Cardiovascular auscultation of heart Overall: regular rate 07/26/2014 None Full Exam - General 1994 Cardiovascular auscultation of heart Overall: normal heart sounds 07/26/2014 None Full Exam - General 1994 Abdomen abdominal exam Overall: no tenderness 07/26/2014 None Full Exam - General 1994 Abdomen abdominal exam Overall: normal bowel sounds 07/26/2014 None Full Exam - General 1994 Lymphatic neck nodes Overall: anterior cervical chain benign 07/26/2014 None Full Exam - General 1994 Lymphatic neck nodes Overall: posterior cervical chain benign 07/26/2014 None Full Exam - General 1994 Musculoskeletal spine, ribs and pelvis Overall: ribs benign 07/26/2014 None Full Exam - General 1994 Musculoskeletal spine, ribs and pelvis Overall: spine benign 07/26/2014 None Full Exam - General 1994 Musculoskeletal spine, ribs and pelvis Overall: sacroiliac joint benign 07/26/2014 None Full Exam - General 1994 Musculoskeletal spine, ribs and pelvis Overall: right hip benign 07/26/2014 None Full Exam - General 1994 Musculoskeletal spine, ribs and pelvis Overall: left hip benign 07/26/2014 None Full Exam - General 1994 Musculoskeletal spine, ribs and pelvis Overall: good posture 07/26/2014 None Full Exam - General 1994 Musculoskeletal head and neck Overall: head atraumatic 07/26/2014 None Full Exam - General 1994 Musculoskeletal head and neck Overall: cervical spine benign 07/26/2014 None Full Exam - General 1994 Neurologic gait Overall: no ataxia, no unsteadiness 07/26/2014 None Full Exam - General 1994 Psychiatric orientation/consciousness Overall: oriented to person, place and time 07/26/2014 None Full Exam - General 1994 Psychiatric mood and affect Overall: normal mood and affect 07/26/2014 None Full Exam - General 1994 Constitutional general appearance Overall: well developed 07/10/2014 None Full Exam - General 1994 Constitutional general appearance Overall: in no acute distress 07/10/2014 None Full Exam - General 1994 Constitutional general appearance Overall: well nourished 07/10/2014 None Full Exam - General 1994 Eyes pupils and irises Overall: pupils equal, round, reactive to light and accomodation 07/10/2014 None Full Exam - General 1994 Ears/Nose/Throat otoscopic exam Overall: external auditory canals clear 07/10/2014 None Full Exam - General 1994 Ears/Nose/Throat otoscopic exam Overall: tympanic membranes clear 07/10/2014 None Full Exam - General 1994 Ears/Nose/Throat oral cavity/pharynx/larynx Overall: oral mucosa clear 07/10/2014 None Full Exam - General 1994 Ears/Nose/Throat oral cavity/pharynx/larynx Overall: oropharyngeal mucosa clear 07/10/2014 None Full Exam - General 1994 Ears/Nose/Throat oral cavity/pharynx/larynx Overall: no masses 07/10/2014 None Full Exam - General 1994 Respiratory auscultation Overall: breath sounds clear bilaterally 07/10/2014 None Full Exam - General 1994 Respiratory respiratory effort/rhythm Overall: no retractions 07/10/2014 None Full Exam - General 1994 Respiratory respiratory effort/rhythm Overall: normal rate 07/10/2014 None Full Exam - General 1994 Cardiovascular auscultation of heart Overall: regular rate 07/10/2014 None Full Exam - General 1994 Cardiovascular auscultation of heart Overall: normal heart sounds 07/10/2014 None Full Exam - General 1994 Abdomen abdominal exam Overall: no tenderness 07/10/2014 None Full Exam - General 1994 Abdomen abdominal exam Overall: normal bowel sounds 07/10/2014 None Full Exam - General 1994 Lymphatic neck nodes Overall: anterior cervical chain benign 07/10/2014 None Full Exam - General 1994 Lymphatic neck nodes Overall: posterior cervical chain benign 07/10/2014 None Full Exam - General 1994 Musculoskeletal spine, ribs and pelvis Overall: ribs benign 07/10/2014 None Full Exam - General 1994 Musculoskeletal spine, ribs and pelvis Overall: spine benign 07/10/2014 None Full Exam - General 1994 Musculoskeletal spine, ribs and pelvis Overall: sacroiliac joint benign 07/10/2014 None Full Exam - General 1994 Musculoskeletal spine, ribs and pelvis Overall: right hip benign 07/10/2014 None Full Exam - General 1994 Musculoskeletal spine, ribs and pelvis Overall: left hip benign 07/10/2014 None Full Exam - General 1994 Musculoskeletal spine, ribs and pelvis Overall: good posture 07/10/2014 None Full Exam - General 1994 Musculoskeletal head and neck Overall: head atraumatic 07/10/2014 None Full Exam - General 1994 Musculoskeletal head and neck Overall: cervical spine benign 07/10/2014 None Full Exam - General 1994 Neurologic gait Overall: no ataxia, no unsteadiness 07/10/2014 None Full Exam - General 1994 Psychiatric orientation/consciousness Overall: oriented to person, place and time 07/10/2014 None Full Exam - General 1994 Psychiatric mood and affect Overall: normal mood and affect 07/10/2014 None Full Exam - General 1994 Constitutional general appearance Overall: well developed 06/06/2014 None Full Exam - General 1994 Constitutional general appearance Overall: in no acute distress 06/06/2014 None Full Exam - General 1994 Eyes pupils and irises Overall: pupils equal, round, reactive to light and accomodation 06/06/2014 None Full Exam - General 1994 Ears/Nose/Throat otoscopic exam Overall: external auditory canals clear 06/06/2014 None Full Exam - General 1994 Ears/Nose/Throat otoscopic exam Overall: tympanic membranes clear 06/06/2014 None Full Exam - General 1994 Ears/Nose/Throat oral cavity/pharynx/larynx Overall: oral mucosa clear 06/06/2014 None Full Exam - General 1994 Ears/Nose/Throat oral cavity/pharynx/larynx Overall: oropharyngeal mucosa clear 06/06/2014 None Full Exam - General 1994 Ears/Nose/Throat oral cavity/pharynx/larynx Overall: no masses 06/06/2014 None Full Exam - General 1994 Respiratory auscultation Upper lung field: a normal exam 06/06/2014 None Full Exam - General 1994 Respiratory auscultation Lower lung field: a normal exam 06/06/2014 None Full Exam - General 1994 Respiratory auscultation Lower lung field: crackles 06/06/2014 None Full Exam - General 1994 Respiratory respiratory effort/rhythm Overall: no retractions 06/06/2014 None Full Exam - General 1994 Respiratory respiratory effort/rhythm Overall: normal rate 06/06/2014 None Full Exam - General 1994 Cardiovascular auscultation of heart Overall: regular rate 06/06/2014 None Full Exam - General 1994 Cardiovascular auscultation of heart Overall: normal heart sounds 06/06/2014 None Full Exam - General 1994 Abdomen abdominal exam Overall: no tenderness 06/06/2014 None Full Exam - General 1994 Abdomen abdominal exam Overall: normal bowel sounds 06/06/2014 None Full Exam - General 1994 Lymphatic neck nodes Overall: anterior cervical chain benign 06/06/2014 None Full Exam - General 1994 Lymphatic neck nodes Overall: posterior cervical chain benign 06/06/2014 None Full Exam - General 1994 Neurologic gait Overall: no ataxia, no unsteadiness 06/06/2014 None Full Exam - General 1994 Psychiatric orientation/consciousness Overall: oriented to person, place and time 06/06/2014 None Full Exam - General 1994 Constitutional general appearance Nourishment: thin 06/06/2014 None Full Exam - General 1994 Psychiatric mood and affect Mood: anxious 06/06/2014 None Full Exam - General 1994 Constitutional general appearance Overall: well developed 05/29/2014 None Full Exam - General 1994 Constitutional general appearance Overall: in no acute distress 05/29/2014 None Full Exam - General 1994 Constitutional general appearance Overall: well nourished 05/29/2014 None Full Exam - General 1994 Eyes pupils and irises Overall: pupils equal, round, reactive to light and accomodation 05/29/2014 None Full Exam - General 1994 Ears/Nose/Throat otoscopic exam Overall: external auditory canals clear 05/29/2014 None Full Exam - General 1994 Ears/Nose/Throat otoscopic exam Overall: tympanic membranes clear 05/29/2014 None Full Exam - General 1994 Ears/Nose/Throat oral cavity/pharynx/larynx Overall: oral mucosa clear 05/29/2014 None Full Exam - General 1994 Ears/Nose/Throat oral cavity/pharynx/larynx Overall: oropharyngeal mucosa clear 05/29/2014 None Full Exam - General 1994 Ears/Nose/Throat oral cavity/pharynx/larynx Overall: no masses 05/29/2014 None Full Exam - General 1994 Respiratory auscultation Upper lung field: a normal exam 05/29/2014 None Full Exam - General 1994 Respiratory auscultation Lower lung field: a normal exam 05/29/2014 None Full Exam - General 1994 Respiratory auscultation Lower lung field: crackles 05/29/2014 None Full Exam - General 1994 Respiratory respiratory effort/rhythm Overall: no retractions 05/29/2014 None Full Exam - General 1994 Respiratory respiratory effort/rhythm Overall: normal rate 05/29/2014 None Full Exam - General 1994 Cardiovascular auscultation of heart Overall: regular rate 05/29/2014 None Full Exam - General 1994 Cardiovascular auscultation of heart Overall: normal heart sounds 05/29/2014 None Full Exam - General 1994 Abdomen abdominal exam Overall: no tenderness 05/29/2014 None Full Exam - General 1994 Abdomen abdominal exam Overall: normal bowel sounds 05/29/2014 None Full Exam - General 1994 Lymphatic neck nodes Overall: anterior cervical chain benign 05/29/2014 None Full Exam - General 1994 Lymphatic neck nodes Overall: posterior cervical chain benign 05/29/2014 None Full Exam - General 1994 Neurologic gait Overall: no ataxia, no unsteadiness 05/29/2014 None Full Exam - General 1994 Psychiatric orientation/consciousness Overall: oriented to person, place and time 05/29/2014 None Full Exam - General 1994 Psychiatric mood and affect Overall: normal mood and affect 05/29/2014 None Full Exam - General 1994 Constitutional general appearance Overall: well developed 05/20/2014 None Full Exam - General 1994 Constitutional general appearance Overall: in no acute distress 05/20/2014 None Full Exam - General 1994 Constitutional general appearance Overall: well nourished 05/20/2014 None Full Exam - General 1994 Eyes pupils and irises Overall: pupils equal, round, reactive to light and accomodation 05/20/2014 None Full Exam - General 1994 Ears/Nose/Throat otoscopic exam Overall: external auditory canals clear 05/20/2014 None Full Exam - General 1994 Ears/Nose/Throat otoscopic exam Overall: tympanic membranes clear 05/20/2014 None Full Exam - General 1994 Ears/Nose/Throat oral cavity/pharynx/larynx Overall: oral mucosa clear 05/20/2014 None Full Exam - General 1994 Ears/Nose/Throat oral cavity/pharynx/larynx Overall: oropharyngeal mucosa clear 05/20/2014 None Full Exam - General 1994 Ears/Nose/Throat oral cavity/pharynx/larynx Overall: no masses 05/20/2014 None Full Exam - General 1994 Respiratory respiratory effort/rhythm Overall: no retractions 05/20/2014 None Full Exam - General 1994 Respiratory respiratory effort/rhythm Overall: normal rate 05/20/2014 None Full Exam - General 1994 Cardiovascular auscultation of heart Overall: regular rate 05/20/2014 None Full Exam - General 1994 Cardiovascular auscultation of heart Overall: normal heart sounds 05/20/2014 None Full Exam - General 1994 Neurologic gait Overall: no ataxia, no unsteadiness 05/20/2014 None Full Exam - General 1994 Psychiatric orientation/consciousness Overall: oriented to person, place and time 05/20/2014 None Full Exam - General 1994 Psychiatric mood and affect Overall: normal mood and affect 05/20/2014 None Full Exam - General 1994 Lymphatic neck nodes Overall: anterior cervical chain benign 05/20/2014 None Full Exam - General 1994 Lymphatic neck nodes Overall: posterior cervical chain benign 05/20/2014 None Full Exam - General 1994 Respiratory auscultation Lower lung field: crackles 05/20/2014 None Full Exam - General 1994 Respiratory auscultation Upper lung field: a normal exam 05/20/2014 None Full Exam - General 1994 Respiratory auscultation Lower lung field: a normal exam 05/20/2014 None Full Exam - General 1994 Abdomen abdominal exam Overall: normal bowel sounds 05/20/2014 None Full Exam - General 1994 Abdomen abdominal exam Overall: no tenderness 05/20/2014 None Full Exam - General 1994 Constitutional general appearance Overall: well developed 03/25/2014 None Full Exam - General 1994 Constitutional general appearance Overall: in no acute distress 03/25/2014 None Full Exam - General 1994 Constitutional general appearance Overall: well nourished 03/25/2014 None Full Exam - General 1994 Eyes pupils and irises Overall: pupils equal, round, reactive to light and accomodation 03/25/2014 None Full Exam - General 1994 Ears/Nose/Throat otoscopic exam Overall: external auditory canals clear 03/25/2014 None Full Exam - General 1994 Ears/Nose/Throat otoscopic exam Overall: tympanic membranes clear 03/25/2014 None Full Exam - General 1994 Ears/Nose/Throat oral cavity/pharynx/larynx Overall: oral mucosa clear 03/25/2014 None Full Exam - General 1994 Ears/Nose/Throat oral cavity/pharynx/larynx Overall: oropharyngeal mucosa clear 03/25/2014 None Full Exam - General 1994 Ears/Nose/Throat oral cavity/pharynx/larynx Overall: no masses 03/25/2014 None Full Exam - General 1994 Respiratory auscultation Overall: breath sounds clear bilaterally 03/25/2014 None Full Exam - General 1994 Respiratory respiratory effort/rhythm Overall: no retractions 03/25/2014 None Full Exam - General 1994 Respiratory respiratory effort/rhythm Overall: normal rate 03/25/2014 None Full Exam - General 1994 Cardiovascular auscultation of heart Overall: regular rate 03/25/2014 None Full Exam - General 1994 Cardiovascular auscultation of heart Overall: normal heart sounds 03/25/2014 None Full Exam - General 1994 Musculoskeletal spine, ribs and pelvis Overall: ribs benign 03/25/2014 None Full Exam - General 1994 Musculoskeletal spine, ribs and pelvis Overall: spine benign 03/25/2014 None Full Exam - General 1994 Musculoskeletal spine, ribs and pelvis Overall: sacroiliac joint benign 03/25/2014 None Full Exam - General 1994 Musculoskeletal spine, ribs and pelvis Overall: right hip benign 03/25/2014 None Full Exam - General 1994 Musculoskeletal spine, ribs and pelvis Overall: left hip benign 03/25/2014 None Full Exam - General 1994 Musculoskeletal spine, ribs and pelvis Overall: good posture 03/25/2014 None Full Exam - General 1994 Musculoskeletal head and neck Overall: head atraumatic 03/25/2014 None Full Exam - General 1994 Musculoskeletal head and neck Overall: cervical spine benign 03/25/2014 None Full Exam - General 1994 Neurologic gait Overall: no ataxia, no unsteadiness 03/25/2014 None Full Exam - General 1994 Psychiatric orientation/consciousness Overall: oriented to person, place and time 03/25/2014 None Full Exam - General 1994 Psychiatric mood and affect Overall: normal mood and affect 03/25/2014 None Full Exam - General 1994 Constitutional general appearance Overall: well developed 02/08/2014 None Full Exam - General 1994 Constitutional general appearance Overall: in no acute distress 02/08/2014 None Full Exam - General 1994 Constitutional general appearance Overall: well nourished 02/08/2014 None Full Exam - General 1994 Eyes pupils and irises Overall: pupils equal, round, reactive to light and accomodation 02/08/2014 None Full Exam - General 1994 Ears/Nose/Throat otoscopic exam Overall: external auditory canals clear 02/08/2014 None Full Exam - General 1994 Ears/Nose/Throat otoscopic exam Overall: tympanic membranes clear 02/08/2014 None Full Exam - General 1994 Ears/Nose/Throat oral cavity/pharynx/larynx Overall: oral mucosa clear 02/08/2014 None Full Exam - General 1994 Ears/Nose/Throat oral cavity/pharynx/larynx Overall: oropharyngeal mucosa clear 02/08/2014 None Full Exam - General 1994 Ears/Nose/Throat oral cavity/pharynx/larynx Overall: no masses 02/08/2014 None Full Exam - General 1994 Respiratory auscultation Overall: breath sounds clear bilaterally 02/08/2014 None Full Exam - General 1994 Respiratory respiratory effort/rhythm Overall: no retractions 02/08/2014 None Full Exam - General 1994 Respiratory respiratory effort/rhythm Overall: normal rate 02/08/2014 None Full Exam - General 1994 Cardiovascular auscultation of heart Overall: regular rate 02/08/2014 None Full Exam - General 1994 Cardiovascular auscultation of heart Overall: normal heart sounds 02/08/2014 None Full Exam - General 1994 Abdomen abdominal exam Overall: no tenderness 02/08/2014 None Full Exam - General 1994 Abdomen abdominal exam Overall: normal bowel sounds 02/08/2014 None Full Exam - General 1994 Musculoskeletal spine, ribs and pelvis Overall: ribs benign 02/08/2014 None Full Exam - General 1994 Musculoskeletal spine, ribs and pelvis Overall: spine benign 02/08/2014 None Full Exam - General 1994 Musculoskeletal spine, ribs and pelvis Overall: sacroiliac joint benign 02/08/2014 None Full Exam - General 1994 Musculoskeletal spine, ribs and pelvis Overall: right hip benign 02/08/2014 None Full Exam - General 1994 Musculoskeletal spine, ribs and pelvis Overall: left hip benign 02/08/2014 None Full Exam - General 1994 Musculoskeletal spine, ribs and pelvis Overall: good posture 02/08/2014 None Full Exam - General 1994 Musculoskeletal head and neck Overall: head atraumatic 02/08/2014 None Full Exam - General 1994 Musculoskeletal head and neck Overall: cervical spine benign 02/08/2014 None Full Exam - General 1994 Neurologic gait Overall: no ataxia, no unsteadiness 02/08/2014 None Full Exam - General 1994 Psychiatric orientation/consciousness Overall: oriented to person, place and time 02/08/2014 None Full Exam - General 1994 Psychiatric mood and affect Overall: normal mood and affect 02/08/2014 None Full Exam - General 1994 Ears/Nose/Throat internal nose Turbinates: a normal exam 02/08/2014 None Full Exam - General 1994 Ears/Nose/Throat internal nose Turbinates: boggy 12/24/2013 --Improved Full Exam - General 1994 Constitutional general appearance Overall: well developed 12/24/2013 None Full Exam - General 1994 Constitutional general appearance Overall: in no acute distress 12/24/2013 None Full Exam - General 1994 Constitutional general appearance Overall: well nourished 12/24/2013 None Full Exam - General 1994 Eyes pupils and irises Overall: pupils equal, round, reactive to light and accomodation 12/24/2013 None Full Exam - General 1994 Ears/Nose/Throat otoscopic exam Overall: external auditory canals clear 12/24/2013 None Full Exam - General 1994 Ears/Nose/Throat otoscopic exam Overall: tympanic membranes clear 12/24/2013 None Full Exam - General 1994 Ears/Nose/Throat oral cavity/pharynx/larynx Overall: oral mucosa clear 12/24/2013 None Full Exam - General 1994 Ears/Nose/Throat oral cavity/pharynx/larynx Overall: oropharyngeal mucosa clear 12/24/2013 None Full Exam - General 1994 Ears/Nose/Throat oral cavity/pharynx/larynx Overall: no masses 12/24/2013 None Full Exam - General 1994 Respiratory auscultation Overall: breath sounds clear bilaterally 12/24/2013 None Full Exam - General 1994 Respiratory respiratory effort/rhythm Overall: no retractions 12/24/2013 None Full Exam - General 1994 Respiratory respiratory effort/rhythm Overall: normal rate 12/24/2013 None Full Exam - General 1994 Cardiovascular auscultation of heart Overall: regular rate 12/24/2013 None Full Exam - General 1994 Cardiovascular auscultation of heart Overall: normal heart sounds 12/24/2013 None Full Exam - General 1994 Abdomen abdominal exam Overall: no tenderness 12/24/2013 None Full Exam - General 1994 Abdomen abdominal exam Overall: normal bowel sounds 12/24/2013 None Full Exam - General 1994 Musculoskeletal spine, ribs and pelvis Overall: ribs benign 12/24/2013 None Full Exam - General 1994 Musculoskeletal spine, ribs and pelvis Overall: spine benign 12/24/2013 None Full Exam - General 1994 Musculoskeletal spine, ribs and pelvis Overall: sacroiliac joint benign 12/24/2013 None Full Exam - General 1994 Musculoskeletal spine, ribs and pelvis Overall: right hip benign 12/24/2013 None Full Exam - General 1994 Musculoskeletal spine, ribs and pelvis Overall: left hip benign 12/24/2013 None Full Exam - General 1994 Musculoskeletal spine, ribs and pelvis Overall: good posture 12/24/2013 None Full Exam - General 1994 Musculoskeletal head and neck Overall: head atraumatic 12/24/2013 None Full Exam - General 1994 Musculoskeletal head and neck Overall: cervical spine benign 12/24/2013 None Full Exam - General 1994 Neurologic gait Overall: no ataxia, no unsteadiness 12/24/2013 None Full Exam - General 1994 Psychiatric orientation/consciousness Overall: oriented to person, place and time 12/24/2013 None Full Exam - General 1994 Psychiatric mood and affect Overall: normal mood and affect 12/24/2013 None Full Exam - General 1994 Constitutional general appearance Overall: well developed 11/20/2013 None Full Exam - General 1994 Constitutional general appearance Overall: in no acute distress 11/20/2013 None Full Exam - General 1994 Constitutional general appearance Overall: well nourished 11/20/2013 None Full Exam - General 1994 Eyes pupils and irises Overall: pupils equal, round, reactive to light and accomodation 11/20/2013 None Full Exam - General 1994 Ears/Nose/Throat otoscopic exam Overall: external auditory canals clear 11/20/2013 None Full Exam - General 1994 Ears/Nose/Throat otoscopic exam Overall: tympanic membranes clear 11/20/2013 None Full Exam - General 1994 Ears/Nose/Throat oral cavity/pharynx/larynx Overall: oral mucosa clear 11/20/2013 None Full Exam - General 1994 Ears/Nose/Throat oral cavity/pharynx/larynx Overall: oropharyngeal mucosa clear 11/20/2013 None Full Exam - General 1994 Ears/Nose/Throat oral cavity/pharynx/larynx Overall: no masses 11/20/2013 None Full Exam - General 1994 Respiratory auscultation Overall: breath sounds clear bilaterally 11/20/2013 None Full Exam - General 1994 Respiratory respiratory effort/rhythm Overall: no retractions 11/20/2013 None Full Exam - General 1994 Respiratory respiratory effort/rhythm Overall: normal rate 11/20/2013 None Full Exam - General 1994 Cardiovascular auscultation of heart Overall: regular rate 11/20/2013 None Full Exam - General 1994 Cardiovascular auscultation of heart Overall: normal heart sounds 11/20/2013 None Full Exam - General 1994 Abdomen abdominal exam Overall: no tenderness 11/20/2013 None Full Exam - General 1994 Abdomen abdominal exam Overall: normal bowel sounds 11/20/2013 None Full Exam - General 1994 Musculoskeletal spine, ribs and pelvis Overall: ribs benign 11/20/2013 None Full Exam - General 1994 Musculoskeletal spine, ribs and pelvis Overall: spine benign 11/20/2013 None Full Exam - General 1994 Musculoskeletal spine, ribs and pelvis Overall: sacroiliac joint benign 11/20/2013 None Full Exam - General 1994 Musculoskeletal spine, ribs and pelvis Overall: right hip benign 11/20/2013 None Full Exam - General 1994 Musculoskeletal spine, ribs and pelvis Overall: left hip benign 11/20/2013 None Full Exam - General 1994 Musculoskeletal spine, ribs and pelvis Overall: good posture 11/20/2013 None Full Exam - General 1994 Musculoskeletal head and neck Overall: head atraumatic 11/20/2013 None Full Exam - General 1994 Musculoskeletal head and neck Overall: cervical spine benign 11/20/2013 None Full Exam - General 1994 Neurologic gait Overall: no ataxia, no unsteadiness 11/20/2013 None Full Exam - General 1994 Psychiatric orientation/consciousness Overall: oriented to person, place and time 11/20/2013 None Full Exam - General 1994 Psychiatric mood and affect Overall: normal mood and affect 11/20/2013 None Full Exam - General 1994 Ears/Nose/Throat internal nose Turbinates: boggy 11/20/2013 None Full Exam - General 1994 Constitutional general appearance Overall: well developed 10/30/2013 None Full Exam - General 1994 Constitutional general appearance Overall: in no acute distress 10/30/2013 None Full Exam - General 1994 Constitutional general appearance Overall: well nourished 10/30/2013 None Full Exam - General 1994 Eyes pupils and irises Overall: pupils equal, round, reactive to light and accomodation 10/30/2013 None Full Exam - General 1994 Ears/Nose/Throat otoscopic exam Overall: external auditory canals clear 10/30/2013 None Full Exam - General 1994 Ears/Nose/Throat otoscopic exam Overall: tympanic membranes clear 10/30/2013 None Full Exam - General 1994 Ears/Nose/Throat oral cavity/pharynx/larynx Overall: oral mucosa clear 10/30/2013 None Full Exam - General 1994 Ears/Nose/Throat oral cavity/pharynx/larynx Overall: oropharyngeal mucosa clear 10/30/2013 None Full Exam - General 1994 Ears/Nose/Throat oral cavity/pharynx/larynx Overall: no masses 10/30/2013 None Full Exam - General 1994 Respiratory auscultation Overall: breath sounds clear bilaterally 10/30/2013 None Full Exam - General 1994 Respiratory respiratory effort/rhythm Overall: no retractions 10/30/2013 None Full Exam - General 1994 Respiratory respiratory effort/rhythm Overall: normal rate 10/30/2013 None Full Exam - General 1994 Cardiovascular auscultation of heart Overall: regular rate 10/30/2013 None Full Exam - General 1994 Cardiovascular auscultation of heart Overall: normal heart sounds 10/30/2013 None Full Exam - General 1994 Abdomen abdominal exam Overall: no tenderness 10/30/2013 None Full Exam - General 1994 Abdomen abdominal exam Overall: normal bowel sounds 10/30/2013 None Full Exam - General 1994 Musculoskeletal spine, ribs and pelvis Overall: ribs benign 10/30/2013 None Full Exam - General 1994 Musculoskeletal spine, ribs and pelvis Overall: spine benign 10/30/2013 None Full Exam - General 1994 Musculoskeletal spine, ribs and pelvis Overall: sacroiliac joint benign 10/30/2013 None Full Exam - General 1994 Musculoskeletal spine, ribs and pelvis Overall: right hip benign 10/30/2013 None Full Exam - General 1994 Musculoskeletal spine, ribs and pelvis Overall: left hip benign 10/30/2013 None Full Exam - General 1994 Musculoskeletal spine, ribs and pelvis Overall: good posture 10/30/2013 None Full Exam - General 1994 Musculoskeletal head and neck Overall: head atraumatic 10/30/2013 None Full Exam - General 1994 Musculoskeletal head and neck Overall: cervical spine benign 10/30/2013 None Full Exam - General 1994 Neurologic gait Overall: no ataxia, no unsteadiness 10/30/2013 None Full Exam - General 1994 Psychiatric orientation/consciousness Overall: oriented to person, place and time 10/30/2013 None Full Exam - General 1994 Psychiatric mood and affect Overall: normal mood and affect 10/30/2013 None Full Exam - General 1994 Lymphatic neck nodes Overall: anterior cervical chain benign 10/30/2013 None Full Exam - General 1994 Lymphatic neck nodes Overall: posterior cervical chain benign 10/30/2013 None Full Exam - General 1994 Constitutional general appearance Overall: well developed 10/08/2013 None Full Exam - General 1994 Constitutional general appearance Overall: in no acute distress 10/08/2013 None Full Exam - General 1994 Constitutional general appearance Overall: well nourished 10/08/2013 None Full Exam - General 1994 Eyes pupils and irises Overall: pupils equal, round, reactive to light and accomodation 10/08/2013 None Full Exam - General 1994 Ears/Nose/Throat otoscopic exam Overall: external auditory canals clear 10/08/2013 None Full Exam - General 1994 Ears/Nose/Throat otoscopic exam Overall: tympanic membranes clear 10/08/2013 None Full Exam - General 1994 Ears/Nose/Throat oral cavity/pharynx/larynx Overall: no masses 10/08/2013 None Full Exam - General 1994 Respiratory auscultation Overall: breath sounds clear bilaterally 10/08/2013 None Full Exam - General 1994 Respiratory respiratory effort/rhythm Overall: no retractions 10/08/2013 None Full Exam - General 1994 Respiratory respiratory effort/rhythm Overall: normal rate 10/08/2013 None Full Exam - General 1994 Cardiovascular auscultation of heart Overall: regular rate 10/08/2013 None Full Exam - General 1994 Cardiovascular auscultation of heart Overall: normal heart sounds 10/08/2013 None Full Exam - General 1994 Abdomen abdominal exam Overall: no tenderness 10/08/2013 None Full Exam - General 1994 Abdomen abdominal exam Overall: normal bowel sounds 10/08/2013 None Full Exam - General 1994 Musculoskeletal spine, ribs and pelvis Overall: ribs benign 10/08/2013 None Full Exam - General 1994 Musculoskeletal spine, ribs and pelvis Overall: spine benign 10/08/2013 None Full Exam - General 1994 Musculoskeletal spine, ribs and pelvis Overall: sacroiliac joint benign 10/08/2013 None Full Exam - General 1994 Musculoskeletal spine, ribs and pelvis Overall: right hip benign 10/08/2013 None Full Exam - General 1994 Musculoskeletal spine, ribs and pelvis Overall: left hip benign 10/08/2013 None Full Exam - General 1994 Musculoskeletal spine, ribs and pelvis Overall: good posture 10/08/2013 None Full Exam - General 1994 Musculoskeletal head and neck Overall: head atraumatic 10/08/2013 None Full Exam - General 1994 Musculoskeletal head and neck Overall: cervical spine benign 10/08/2013 None Full Exam - General 1994 Neurologic gait Overall: no ataxia, no unsteadiness 10/08/2013 None Full Exam - General 1994 Psychiatric orientation/consciousness Overall: oriented to person, place and time 10/08/2013 None Full Exam - General 1994 Psychiatric mood and affect Overall: normal mood and affect 10/08/2013 None Full Exam - General 1994 Ears/Nose/Throat oral cavity/pharynx/larynx Oropharynx: erythema 10/08/2013 None Full Exam - General 1994 Ears/Nose/Throat internal nose Drainage: cloudy 10/08/2013 None Full Exam - General 1994 Lymphatic neck nodes Overall: shotty lymphadenopathy 10/08/2013 None Full Exam - General 1994 Constitutional general appearance Overall: well developed 06/18/2013 None Full Exam - General 1994 Constitutional general appearance Overall: in no acute distress 06/18/2013 None Full Exam - General 1994 Constitutional general appearance Overall: well nourished 06/18/2013 None Full Exam - General 1994 Eyes pupils and irises Overall: pupils equal, round, reactive to light and accomodation 06/18/2013 None Full Exam - General 1994 Ears/Nose/Throat otoscopic exam Overall: external auditory canals clear 06/18/2013 None Full Exam - General 1994 Ears/Nose/Throat otoscopic exam Overall: tympanic membranes clear 06/18/2013 None Full Exam - General 1994 Ears/Nose/Throat oral cavity/pharynx/larynx Overall: oral mucosa clear 06/18/2013 None Full Exam - General 1994 Ears/Nose/Throat oral cavity/pharynx/larynx Overall: oropharyngeal mucosa clear 06/18/2013 None Full Exam - General 1994 Ears/Nose/Throat oral cavity/pharynx/larynx Overall: no masses 06/18/2013 None Full Exam - General 1994 Respiratory auscultation Overall: breath sounds clear bilaterally 06/18/2013 None Full Exam - General 1994 Respiratory respiratory effort/rhythm Overall: no retractions 06/18/2013 None Full Exam - General 1994 Respiratory respiratory effort/rhythm Overall: normal rate 06/18/2013 None Full Exam - General 1994 Cardiovascular auscultation of heart Overall: regular rate 06/18/2013 None Full Exam - General 1994 Cardiovascular auscultation of heart Overall: normal heart sounds 06/18/2013 None Full Exam - General 1994 Abdomen abdominal exam Overall: no tenderness 06/18/2013 None Full Exam - General 1994 Abdomen abdominal exam Overall: normal bowel sounds 06/18/2013 None Full Exam - General 1995 Musculoskeletal spine, ribs and pelvis Overall: ribs benign 06/18/2013 None Full Exam - General 1994 Musculoskeletal spine, ribs and pelvis Overall: spine benign 06/18/2013 None Full Exam - General 1994 Musculoskeletal spine, ribs and pelvis Overall: sacroiliac joint benign 06/18/2013 None Full Exam - General 1994 Musculoskeletal spine, ribs and pelvis Overall: right hip benign 06/18/2013 None Full Exam - General 1994 Musculoskeletal spine, ribs and pelvis Overall: left hip benign 06/18/2013 None Full Exam - General 1994 Musculoskeletal spine, ribs and pelvis Overall: good posture 06/18/2013 None Full Exam - General 1994 Musculoskeletal head and neck Overall: head atraumatic 06/18/2013 None Full Exam - General 1994 Musculoskeletal head and neck Overall: cervical spine benign 06/18/2013 None Full Exam - General 1994 Neurologic gait Overall: no ataxia, no unsteadiness 06/18/2013 None Full Exam - General 1994 Psychiatric orientation/consciousness Overall: oriented to person, place and time 06/18/2013 None Full Exam - General 1994 Psychiatric mood and affect Overall: normal mood and affect 06/18/2013 None Full Exam - General 1994 Constitutional general appearance Overall: well developed 04/04/2013 None Full Exam - General 1994 Constitutional general appearance Overall: in no acute distress 04/04/2013 None Full Exam - General 1994 Constitutional general appearance Overall: well nourished 04/04/2013 None Full Exam - General 1994 Eyes pupils and irises Overall: pupils equal, round, reactive to light and accomodation 04/04/2013 None Full Exam - General 1994 Ears/Nose/Throat otoscopic exam Overall: external auditory canals clear 04/04/2013 None Full Exam - General 1994 Ears/Nose/Throat otoscopic exam Overall: tympanic membranes clear 04/04/2013 None Full Exam - General 1994 Ears/Nose/Throat oral cavity/pharynx/larynx Overall: oral mucosa clear 04/04/2013 None Full Exam - General 1994 Ears/Nose/Throat oral cavity/pharynx/larynx Overall: oropharyngeal mucosa clear 04/04/2013 None Full Exam - General 1994 Ears/Nose/Throat oral cavity/pharynx/larynx Overall: no masses 04/04/2013 None Full Exam - General 1994 Respiratory auscultation Overall: breath sounds clear bilaterally 04/04/2013 None Full Exam - General 1994 Respiratory respiratory effort/rhythm Overall: no retractions 04/04/2013 None Full Exam - General 1994 Respiratory respiratory effort/rhythm Overall: normal rate 04/04/2013 None Full Exam - General 1994 Cardiovascular auscultation of heart Overall: regular rate 04/04/2013 None Full Exam - General 1994 Cardiovascular auscultation of heart Overall: normal heart sounds 04/04/2013 None Full Exam - General 1994 Abdomen abdominal exam Overall: no tenderness 04/04/2013 None Full Exam - General 1994 Abdomen abdominal exam Overall: normal bowel sounds 04/04/2013 None Full Exam - General 1994 Musculoskeletal spine, ribs and pelvis Overall: ribs benign 04/04/2013 None Full Exam - General 1994 Musculoskeletal spine, ribs and pelvis Overall: spine benign 04/04/2013 None Full Exam - General 1994 Musculoskeletal spine, ribs and pelvis Overall: sacroiliac joint benign 04/04/2013 None Full Exam - General 1994 Musculoskeletal spine, ribs and pelvis Overall: right hip benign 04/04/2013 None Full Exam - General 1994 Musculoskeletal spine, ribs and pelvis Overall: left hip benign 04/04/2013 None Full Exam - General 1994 Musculoskeletal spine, ribs and pelvis Overall: good posture 04/04/2013 None Full Exam - General 1994 Musculoskeletal head and neck Overall: head atraumatic 04/04/2013 None Full Exam - General 1994 Musculoskeletal head and neck Overall: cervical spine benign 04/04/2013 None Full Exam - General 1994 Neurologic gait Overall: no ataxia, no unsteadiness 04/04/2013 None Full Exam - General 1994 Psychiatric orientation/consciousness Overall: oriented to person, place and time 04/04/2013 None Full Exam - General 1994 Psychiatric mood and affect Overall: normal mood and affect 04/04/2013 None Full Exam - General 1994 Constitutional general appearance Overall: well developed 02/19/2013 None Full Exam - General 1994 Constitutional general appearance Overall: in no acute distress 02/19/2013 None Full Exam - General 1994 Constitutional general appearance Overall: well nourished 02/19/2013 None Full Exam - General 1994 Eyes pupils and irises Overall: pupils equal, round, reactive to light and accomodation 02/19/2013 None Full Exam - General 1994 Ears/Nose/Throat otoscopic exam Overall: external auditory canals clear 02/19/2013 None Full Exam - General 1994 Ears/Nose/Throat otoscopic exam Overall: tympanic membranes clear 02/19/2013 None Full Exam - General 1994 Ears/Nose/Throat oral cavity/pharynx/larynx Overall: oral mucosa clear 02/19/2013 None Full Exam - General 1995 Ears/Nose/Throat oral cavity/pharynx/larynx Overall: oropharyngeal mucosa clear 02/19/2013 None Full Exam - General 1995 Ears/Nose/Throat oral cavity/pharynx/larynx Overall: no masses 02/19/2013 None Full Exam - General 1994 Respiratory auscultation Overall: breath sounds clear bilaterally 02/19/2013 None Full Exam - General 1994 Respiratory respiratory effort/rhythm Overall: no retractions 02/19/2013 None Full Exam - General 1994 Respiratory respiratory effort/rhythm Overall: normal rate 02/19/2013 None Full Exam - General 1994 Cardiovascular auscultation of heart Overall: regular rate 02/19/2013 None Full Exam - General 1994 Cardiovascular auscultation of heart Overall: normal heart sounds 02/19/2013 None Full Exam - General 1994 Abdomen abdominal exam Overall: no tenderness 02/19/2013 None Full Exam - General 1994 Abdomen abdominal exam Overall: normal bowel sounds 02/19/2013 None Full Exam - General 1994 Musculoskeletal spine, ribs and pelvis Overall: ribs benign 02/19/2013 None Full Exam - General 1994 Musculoskeletal spine, ribs and pelvis Overall: spine benign 02/19/2013 None Full Exam - General 1994 Musculoskeletal spine, ribs and pelvis Overall: sacroiliac joint benign 02/19/2013 None Full Exam - General 1994 Musculoskeletal spine, ribs and pelvis Overall: right hip benign 02/19/2013 None Full Exam - General 1994 Musculoskeletal spine, ribs and pelvis Overall: left hip benign 02/19/2013 None Full Exam - General 1994 Musculoskeletal spine, ribs and pelvis Overall: good posture 02/19/2013 None Full Exam - General 1994 Musculoskeletal head and neck Overall: head atraumatic 02/19/2013 None Full Exam - General 1994 Musculoskeletal head and neck Overall: cervical spine benign 02/19/2013 None Full Exam - General 1994 Neurologic gait Overall: no ataxia, no unsteadiness 02/19/2013 None Full Exam - General 1994 Psychiatric orientation/consciousness Overall: oriented to person, place and time 02/19/2013 None Full Exam - General 1994 Psychiatric mood and affect Overall: normal mood and affect 02/19/2013 None Full Exam - General 1994 Constitutional general appearance Overall: well developed 10/16/2012 None Full Exam - General 1994 Constitutional general appearance Overall: in no acute distress 10/16/2012 None Full Exam - General 1994 Constitutional general appearance Overall: well nourished 10/16/2012 None Full Exam - General 1994 Eyes pupils and irises Overall: pupils equal, round, reactive to light and accomodation 10/16/2012 None Full Exam - General 1994 Ears/Nose/Throat otoscopic exam Overall: external auditory canals clear 10/16/2012 None Full Exam - General 1994 Ears/Nose/Throat otoscopic exam Overall: tympanic membranes clear 10/16/2012 None Full Exam - General 1994 Ears/Nose/Throat oral cavity/pharynx/larynx Overall: oral mucosa clear 10/16/2012 None Full Exam - General 1994 Ears/Nose/Throat oral cavity/pharynx/larynx Overall: oropharyngeal mucosa clear 10/16/2012 None Full Exam - General 1994 Ears/Nose/Throat oral cavity/pharynx/larynx Overall: no masses 10/16/2012 None Full Exam - General 1994 Respiratory auscultation Overall: breath sounds clear bilaterally 10/16/2012 None Full Exam - General 1994 Respiratory respiratory effort/rhythm Overall: no retractions 10/16/2012 None Full Exam - General 1994 Respiratory respiratory effort/rhythm Overall: normal rate 10/16/2012 None Full Exam - General 1994 Cardiovascular auscultation of heart Overall: regular rate 10/16/2012 None Full Exam - General 1994 Cardiovascular auscultation of heart Overall: normal heart sounds 10/16/2012 None Full Exam - General 1994 Abdomen abdominal exam Overall: no tenderness 10/16/2012 None Full Exam - General 1994 Abdomen abdominal exam Overall: normal bowel sounds 10/16/2012 None Full Exam - General 1994 Musculoskeletal spine, ribs and pelvis Overall: ribs benign 10/16/2012 None Full Exam - General 1994 Musculoskeletal spine, ribs and pelvis Overall: spine benign 10/16/2012 None Full Exam - General 1994 Musculoskeletal spine, ribs and pelvis Overall: sacroiliac joint benign 10/16/2012 None Full Exam - General 1994 Musculoskeletal spine, ribs and pelvis Overall: right hip benign 10/16/2012 None Full Exam - General 1994 Musculoskeletal spine, ribs and pelvis Overall: left hip benign 10/16/2012 None Full Exam - General 1994 Musculoskeletal spine, ribs and pelvis Overall: good posture 10/16/2012 None Full Exam - General 1995 Musculoskeletal head and neck Overall: head atraumatic 10/16/2012 None Full Exam - General 1995 Musculoskeletal head and neck Overall: cervical spine benign 10/16/2012 None Full Exam - General 1995 Neurologic gait Overall: no ataxia, no unsteadiness 10/16/2012 None Full Exam - General 1995 Psychiatric orientation/consciousness Overall: oriented to person, place and time 10/16/2012 None Full Exam - General 1995 Psychiatric mood and affect Overall: normal mood and affect 10/16/2012 None Full Exam - General 1995 Constitutional general appearance Overall: well developed 06/19/2012 None Full Exam - General 1995 Constitutional general appearance Overall: in no acute distress 06/19/2012 None Full Exam - General 1995 Constitutional general appearance Overall: well nourished 06/19/2012 None Full Exam - General 1994 Eyes pupils and irises Overall: pupils equal, round, reactive to light and accomodation 06/19/2012 None Full Exam - General 1995 Ears/Nose/Throat otoscopic exam Overall: external auditory canals clear 06/19/2012 None Full Exam - General 1995 Ears/Nose/Throat otoscopic exam Overall: tympanic membranes clear 06/19/2012 None Full Exam - General 1995 Ears/Nose/Throat oral cavity/pharynx/larynx Overall: oral mucosa clear 06/19/2012 None Full Exam - General 1995 Ears/Nose/Throat oral cavity/pharynx/larynx Overall: oropharyngeal mucosa clear 06/19/2012 None Full Exam - General 1995 Ears/Nose/Throat oral cavity/pharynx/larynx Overall: no masses 06/19/2012 None Full Exam - General 1994 Respiratory auscultation Overall: breath sounds clear bilaterally 06/19/2012 None Full Exam - General 1994 Respiratory respiratory effort/rhythm Overall: no retractions 06/19/2012 None Full Exam - General 1994 Respiratory respiratory effort/rhythm Overall: normal rate 06/19/2012 None Full Exam - General 1994 Cardiovascular auscultation of heart Overall: regular rate 06/19/2012 None Full Exam - General 1994 Cardiovascular auscultation of heart Overall: normal heart sounds 06/19/2012 None Full Exam - General 1994 Abdomen abdominal exam Overall: no tenderness 06/19/2012 None Full Exam - General 1994 Abdomen abdominal exam Overall: normal bowel sounds 06/19/2012 None Full Exam - General 1994 Musculoskeletal spine, ribs and pelvis Overall: ribs benign 06/19/2012 None Full Exam - General 1994 Musculoskeletal spine, ribs and pelvis Overall: spine benign 06/19/2012 None Full Exam - General 1994 Musculoskeletal spine, ribs and pelvis Overall: sacroiliac joint benign 06/19/2012 None Full Exam - General 1995 Musculoskeletal spine, ribs and pelvis Overall: right hip benign 06/19/2012 None Full Exam - General 1994 Musculoskeletal spine, ribs and pelvis Overall: left hip benign 06/19/2012 None Full Exam - General 1994 Musculoskeletal spine, ribs and pelvis Overall: good posture 06/19/2012 None Full Exam - General 1994 Musculoskeletal head and neck Overall: head atraumatic 06/19/2012 None Full Exam - General 1994 Musculoskeletal head and neck Overall: cervical spine benign 06/19/2012 None Full Exam - General 1994 Neurologic gait Overall: no ataxia, no unsteadiness 06/19/2012 None Full Exam - General 1994 Psychiatric orientation/consciousness Overall: oriented to person, place and time 06/19/2012 None Full Exam - General 1994 Psychiatric mood and affect Overall: normal mood and affect 06/19/2012 None Full Exam - General 1994 Constitutional general appearance Overall: well developed 03/20/2012 None Full Exam - General 1994 Constitutional general appearance Overall: in no acute distress 03/20/2012 None Full Exam - General 1994 Constitutional general appearance Overall: well nourished 03/20/2012 None Full Exam - General 1994 Eyes pupils and irises Overall: pupils equal, round, reactive to light and accomodation 03/20/2012 None Full Exam - General 1994 Ears/Nose/Throat otoscopic exam Overall: external auditory canals clear 03/20/2012 None Full Exam - General 1994 Ears/Nose/Throat otoscopic exam Overall: tympanic membranes clear 03/20/2012 None Full Exam - General 1994 Ears/Nose/Throat oral cavity/pharynx/larynx Overall: oral mucosa clear 03/20/2012 None Full Exam - General 1994 Ears/Nose/Throat oral cavity/pharynx/larynx Overall: oropharyngeal mucosa clear 03/20/2012 None Full Exam - General 1994 Ears/Nose/Throat oral cavity/pharynx/larynx Overall: no masses 03/20/2012 None Full Exam - General 1994 Respiratory auscultation Overall: breath sounds clear bilaterally 03/20/2012 None Full Exam - General 1994 Respiratory respiratory effort/rhythm Overall: no retractions 03/20/2012 None Full Exam - General 1994 Respiratory respiratory effort/rhythm Overall: normal rate 03/20/2012 None Full Exam - General 1994 Cardiovascular auscultation of heart Overall: regular rate 03/20/2012 None Full Exam - General 1994 Cardiovascular auscultation of heart Overall: normal heart sounds 03/20/2012 None Full Exam - General 1994 Abdomen abdominal exam Overall: no tenderness 03/20/2012 None Full Exam - General 1994 Abdomen abdominal exam Overall: normal bowel sounds 03/20/2012 None Full Exam - General 1994 Musculoskeletal spine, ribs and pelvis Overall: ribs benign 03/20/2012 None Full Exam - General 1994 Musculoskeletal spine, ribs and pelvis Overall: spine benign 03/20/2012 None Full Exam - General 1994 Musculoskeletal spine, ribs and pelvis Overall: sacroiliac joint benign 03/20/2012 None Full Exam - General 1994 Musculoskeletal spine, ribs and pelvis Overall: right hip benign 03/20/2012 None Full Exam - General 1994 Musculoskeletal spine, ribs and pelvis Overall: left hip benign 03/20/2012 None Full Exam - General 1994 Musculoskeletal spine, ribs and pelvis Overall: good posture 03/20/2012 None Full Exam - General 1994 Musculoskeletal head and neck Overall: head atraumatic 03/20/2012 None Full Exam - General 1994 Musculoskeletal head and neck Overall: cervical spine benign 03/20/2012 None Full Exam - General 1994 Neurologic gait Overall: no ataxia, no unsteadiness 03/20/2012 None Full Exam - General 1994 Psychiatric orientation/consciousness Overall: oriented to person, place and time 03/20/2012 None Full Exam - General 1994 Psychiatric mood and affect Overall: normal mood and affect 03/20/2012 None Full Exam - General 1994 Ears/Nose/Throat oral cavity/pharynx/larynx Overall: oropharyngeal mucosa clear 01/24/2012 None Full Exam - General 1994 Ears/Nose/Throat oral cavity/pharynx/larynx Overall: no masses 01/24/2012 None Full Exam - General 1994 Respiratory auscultation Overall: breath sounds clear bilaterally 01/24/2012 None Full Exam - General 1994 Respiratory respiratory effort/rhythm Overall: no retractions 01/24/2012 None Full Exam - General 1994 Respiratory respiratory effort/rhythm Overall: normal rate 01/24/2012 None Full Exam - General 1994 Cardiovascular auscultation of heart Overall: regular rate 01/24/2012 None Full Exam - General 1994 Cardiovascular auscultation of heart Overall: normal heart sounds 01/24/2012 None Full Exam - General 1994 Abdomen abdominal exam Overall: no tenderness 01/24/2012 None Full Exam - General 1995 Abdomen abdominal exam Overall: normal bowel sounds 01/24/2012 None Full Exam - General 1995 Musculoskeletal spine, ribs and pelvis Overall: ribs benign 01/24/2012 None Full Exam - General 1995 Musculoskeletal spine, ribs and pelvis Overall: spine benign 01/24/2012 None Full Exam - General 1995 Musculoskeletal spine, ribs and pelvis Overall: sacroiliac joint benign 01/24/2012 None Full Exam - General 1995 Musculoskeletal spine, ribs and pelvis Overall: right hip benign 01/24/2012 None Full Exam - General 1995 Constitutional general appearance Overall: well developed 01/24/2012 None Full Exam - General 1994 Constitutional general appearance Overall: in no acute distress 01/24/2012 None Full Exam - General 1994 Constitutional general appearance Overall: well nourished 01/24/2012 None Full Exam - General 1994 Eyes pupils and irises Overall: pupils equal, round, reactive to light and accomodation 01/24/2012 None Full Exam - General 1995 Ears/Nose/Throat otoscopic exam Overall: external auditory canals clear 01/24/2012 None Full Exam - General 1995 Ears/Nose/Throat otoscopic exam Overall: tympanic membranes clear 01/24/2012 None Full Exam - General 1995 Ears/Nose/Throat oral cavity/pharynx/larynx Overall: oral mucosa clear 01/24/2012 None Full Exam - General 1995 Musculoskeletal spine, ribs and pelvis Overall: left hip benign 01/24/2012 None Full Exam - General 1994 Musculoskeletal spine, ribs and pelvis Overall: good posture 01/24/2012 None Full Exam - General 1994 Musculoskeletal head and neck Overall: head atraumatic 01/24/2012 None Full Exam - General 1994 Musculoskeletal head and neck Overall: cervical spine benign 01/24/2012 None Full Exam - General 1994 Neurologic gait Overall: no ataxia, no unsteadiness 01/24/2012 None Full Exam - General 1994 Psychiatric orientation/consciousness Overall: oriented to person, place and time 01/24/2012 None Full Exam - General 1994 Psychiatric mood and affect Overall: normal mood and affect 01/24/2012 None Full Exam - General 1994 Constitutional general appearance Overall: well nourished 12/20/2011 None Full Exam - General 1994 Constitutional general appearance Overall: well developed 12/20/2011 None Full Exam - General 1994 Constitutional general appearance Overall: in no acute distress 12/20/2011 None Full Exam - General 1994 Eyes pupils and irises Overall: pupils equal, round, reactive to light and accomodation 12/20/2011 None Full Exam - General 1994 Ears/Nose/Throat otoscopic exam Overall: external auditory canals clear 12/20/2011 None Full Exam - General 1994 Ears/Nose/Throat otoscopic exam Overall: tympanic membranes clear 12/20/2011 None Full Exam - General 1994 Ears/Nose/Throat oral cavity/pharynx/larynx Overall: oral mucosa clear 12/20/2011 None Full Exam - General 1994 Ears/Nose/Throat oral cavity/pharynx/larynx Overall: oropharyngeal mucosa clear 12/20/2011 None Full Exam - General 1994 Ears/Nose/Throat oral cavity/pharynx/larynx Overall: no masses 12/20/2011 None Full Exam - General 1994 Respiratory auscultation Overall: breath sounds clear bilaterally 12/20/2011 None Full Exam - General 1994 Respiratory respiratory effort/rhythm Overall: no retractions 12/20/2011 None Full Exam - General 1994 Respiratory respiratory effort/rhythm Overall: normal rate 12/20/2011 None Full Exam - General 1994 Cardiovascular auscultation of heart Overall: regular rate 12/20/2011 None Full Exam - General 1994 Cardiovascular auscultation of heart Overall: normal heart sounds 12/20/2011 None Full Exam - General 1994 Abdomen abdominal exam Overall: no tenderness 12/20/2011 None Full Exam - General 1994 Abdomen abdominal exam Overall: normal bowel sounds 12/20/2011 None Full Exam - General 1994 Musculoskeletal head and neck Overall: head atraumatic 12/20/2011 None Full Exam - General 1994 Musculoskeletal head and neck Overall: cervical spine benign 12/20/2011 None Full Exam - General 1994 Musculoskeletal spine, ribs and pelvis Overall: good posture 12/20/2011 None Full Exam - General 1994 Musculoskeletal spine, ribs and pelvis Overall: ribs benign 12/20/2011 None Full Exam - General 1994 Musculoskeletal spine, ribs and pelvis Overall: spine benign 12/20/2011 None Full Exam - General 1994 Musculoskeletal spine, ribs and pelvis Overall: sacroiliac joint benign 12/20/2011 None Full Exam - General 1994 Musculoskeletal spine, ribs and pelvis Overall: right hip benign 12/20/2011 None Full Exam - General 1994 Musculoskeletal spine, ribs and pelvis Overall: left hip benign 12/20/2011 None Full Exam - General 1994 Neurologic gait Overall: no ataxia, no unsteadiness 12/20/2011 None Full Exam - General 1994 Psychiatric orientation/consciousness Overall: oriented to person, place and time 12/20/2011 None Full Exam - General 1994 Psychiatric mood and affect Overall: normal mood and affect 12/20/2011 None Full Exam - General 1994 Constitutional general appearance Overall: in no acute distress 12/09/2011 None Full Exam - General 1994 Eyes pupils and irises Overall: pupils equal, round, reactive to light and accomodation 12/09/2011 None Full Exam - General 1994 Respiratory auscultation Overall: breath sounds clear bilaterally 12/09/2011 None Full Exam - General 1994 Respiratory respiratory effort/rhythm Overall: no retractions 12/09/2011 None Full Exam - General 1994 Respiratory respiratory effort/rhythm Overall: normal rate 12/09/2011 None Full Exam - General 1994 Cardiovascular auscultation of heart Overall: regular rate 12/09/2011 None Full Exam - General 1994 Cardiovascular auscultation of heart Overall: normal heart sounds 12/09/2011 None Full Exam - General 1994 Abdomen abdominal exam Overall: no tenderness 12/09/2011 None Full Exam - General 1994 Abdomen abdominal exam Overall: normal bowel sounds 12/09/2011 None Full Exam - General 1994 Musculoskeletal head and neck Overall: head atraumatic 12/09/2011 None Full Exam - General 1994 Musculoskeletal head and neck Overall: cervical spine benign 12/09/2011 None Full Exam - General 1994 Musculoskeletal spine, ribs and pelvis Overall: good posture 12/09/2011 None Full Exam - General 1994 Musculoskeletal spine, ribs and pelvis Overall: ribs benign 12/09/2011 None Full Exam - General 1994 Constitutional general appearance Overall: well nourished 12/09/2011 None Full Exam - General 1994 Constitutional general appearance Overall: well developed 12/09/2011 None Full Exam - General 1994 Musculoskeletal spine, ribs and pelvis Overall: spine benign 12/09/2011 None Full Exam - General 1994 Musculoskeletal spine, ribs and pelvis Overall: sacroiliac joint benign 12/09/2011 None Full Exam - General 1994 Musculoskeletal spine, ribs and pelvis Overall: right hip benign 12/09/2011 None Full Exam - General 1994 Musculoskeletal spine, ribs and pelvis Overall: left hip benign 12/09/2011 None Full Exam - General 1994 Neurologic gait Overall: no ataxia, no unsteadiness 12/09/2011 None Full Exam - General 1994 Psychiatric orientation/consciousness Overall: oriented to person, place and time 12/09/2011 None Full Exam - General 1994 Psychiatric mood and affect Overall: normal mood and affect 12/09/2011 None Full Exam - General 1994 Integument inspection of skin Location: inguinal area 12/09/2011 right groin with hard palpable lump in the groin - mildly tender to palpation - with bruising going down to the thigh Full Exam - General 1994 Neurologic gait Overall: no ataxia, no unsteadiness 08/25/2011 None Full Exam - General 1994 Psychiatric orientation/consciousness Overall: oriented to person, place and time 08/25/2011 None Full Exam - General 1994 Psychiatric mood and affect Overall: normal mood and affect 08/25/2011 None Full Exam - General 1994 Eyes pupils and irises Overall: pupils equal, round, reactive to light and accomodation 08/25/2011 None Full Exam - General 1994 Ears/Nose/Throat oral cavity/pharynx/larynx Overall: oral mucosa clear 08/25/2011 None Full Exam - General 1994 Ears/Nose/Throat oral cavity/pharynx/larynx Overall: oropharyngeal mucosa clear 08/25/2011 None Full Exam - General 1994 Ears/Nose/Throat oral cavity/pharynx/larynx Overall: no masses 08/25/2011 None Full Exam - General 1994 Respiratory auscultation Overall: breath sounds clear bilaterally 08/25/2011 None Full Exam - General 1994 Respiratory respiratory effort/rhythm Overall: no retractions 08/25/2011 None Full Exam - General 1994 Respiratory respiratory effort/rhythm Overall: normal rate 08/25/2011 None Full Exam - General 1994 Abdomen abdominal exam Overall: no tenderness 08/25/2011 None Full Exam - General 1994 Constitutional general appearance Overall: well nourished 08/25/2011 None Full Exam - General 1994 Constitutional general appearance Overall: well developed 08/25/2011 None Full Exam - General 1994 Cardiovascular auscultation of heart Overall: regular rate 08/25/2011 None Full Exam - General 1994 Cardiovascular auscultation of heart Overall: normal heart sounds 08/25/2011 None Full Exam - General 1994 Constitutional general appearance Overall: in no acute distress 08/25/2011 None Full Exam - General 1994 Abdomen abdominal exam Overall: normal bowel sounds 08/25/2011 None Full Exam - General 1994 Musculoskeletal head and neck Overall: head atraumatic 08/25/2011 None Full Exam - General 1994 Musculoskeletal head and neck Overall: cervical spine benign 08/25/2011 None Full Exam - General 1994 Musculoskeletal spine, ribs and pelvis Overall: good posture 08/25/2011 None Full Exam - General 1994 Musculoskeletal spine, ribs and pelvis Overall: ribs benign 08/25/2011 None Full Exam - General 1994 Musculoskeletal spine, ribs and pelvis Overall: spine benign 08/25/2011 None Full Exam - General 1994 Musculoskeletal spine, ribs and pelvis Overall: sacroiliac joint benign 08/25/2011 None Full Exam - General 1994 Musculoskeletal spine, ribs and pelvis Overall: right hip benign 08/25/2011 None Full Exam - General 1994 Musculoskeletal spine, ribs and pelvis Overall: left hip benign 08/25/2011 None Full Exam - General 1994 Ears/Nose/Throat otoscopic exam Overall: tympanic membranes clear 08/25/2011 None Full Exam - General 1994 Ears/Nose/Throat otoscopic exam Overall: external auditory canals clear 08/25/2011 None Full Exam - General 1994 Constitutional general appearance Overall: well nourished 06/23/2011 None Full Exam - General 1994 Constitutional general appearance Overall: well developed 06/23/2011 None Full Exam - General 1994 Constitutional general appearance Overall: in no acute distress 06/23/2011 None Full Exam - General 1994 Cardiovascular auscultation of heart Overall: regular rate 06/23/2011 None Full Exam - General 1994 Cardiovascular auscultation of heart Overall: normal heart sounds 06/23/2011 None Full Exam - General 1994 Neurologic gait Overall: no ataxia, no unsteadiness 06/23/2011 None Full Exam - General 1994 Musculoskeletal spine, ribs and pelvis Overall: ribs benign 06/23/2011 None Full Exam - General 1994 Musculoskeletal spine, ribs and pelvis Overall: good posture 06/23/2011 None Full Exam - General 1994 Musculoskeletal spine, ribs and pelvis Overall: sacroiliac joint benign 06/23/2011 None Full Exam - General 1994 Musculoskeletal spine, ribs and pelvis Overall: left hip benign 06/23/2011 None Full Exam - General 1994 Musculoskeletal spine, ribs and pelvis Overall: spine benign 06/23/2011 None Full Exam - General 1994 Musculoskeletal spine, ribs and pelvis Overall: right hip benign 06/23/2011 None Full Exam - General 1994 Abdomen abdominal exam Overall: no tenderness 06/23/2011 None Full Exam - General 1994 Abdomen abdominal exam Overall: normal bowel sounds 06/23/2011 None Full Exam - General 1994 Abdomen liver and spleen exam Overall: no hepatosplenomegaly 06/23/2011 None Full Exam - General 1994 Abdomen liver and spleen exam Overall: no stigmata of chronic liver disease 06/23/2011 None Full Exam - General 1994 Integument inspection of skin Overall: no rash, lesions 06/23/2011 None Full Exam - General 1994 Psychiatric orientation/consciousness Overall: oriented to person, place and time 06/23/2011 None Full Exam - General 1994 Psychiatric mood and affect Overall: normal mood and affect 06/23/2011 None Full Exam - General 1994 Eyes pupils and irises Overall: pupils equal, round, reactive to light and accomodation 06/23/2011 None Full Exam - General 1994 Ears/Nose/Throat oral cavity/pharynx/larynx Overall: oropharyngeal mucosa clear 06/23/2011 None Full Exam - General 1994 Ears/Nose/Throat oral cavity/pharynx/larynx Overall: no masses 06/23/2011 None Full Exam - General 1994 Ears/Nose/Throat oral cavity/pharynx/larynx Overall: oral mucosa clear 06/23/2011 None Full Exam - General 1994 Ears/Nose/Throat otoscopic exam Overall: tympanic membranes clear 06/23/2011 None Full Exam - General 1994 Ears/Nose/Throat otoscopic exam Overall: external auditory canals clear 06/23/2011 None Full Exam - General 1994 Respiratory auscultation Overall: breath sounds clear bilaterally 06/23/2011 None Full Exam - General 1994 Respiratory respiratory effort/rhythm Overall: normal rate 06/23/2011 None Full Exam - General 1994 Respiratory respiratory effort/rhythm Overall: no retractions 06/23/2011 None Full Exam - General 1994 Musculoskeletal head and neck Overall: cervical spine benign 06/23/2011 None Full Exam - General 1994 Musculoskeletal head and neck Overall: head atraumatic 06/23/2011 None Full Exam - General Ears/Nose/Throat oral cavity/pharynx/larynx Overall: mobile tongue benign 04/19/2011 None Full Exam - General Ears/Nose/Throat oral cavity/pharynx/larynx Overall: oropharyngeal mucosa clear 04/19/2011 None Full Exam - General Respiratory auscultation Overall: breath sounds clear bilaterally 04/19/2011 None Full Exam - General Respiratory respiratory effort/rhythm Overall: no retractions 04/19/2011 None Full Exam - General Respiratory respiratory effort/rhythm Overall: normal rate 04/19/2011 None Full Exam - General Abdomen abdominal exam Overall: no tenderness 04/19/2011 None Full Exam - General Abdomen abdominal exam Overall: normal bowel sounds 04/19/2011 None Full Exam - General Musculoskeletal head and neck Overall: head atraumatic 04/19/2011 None Full Exam - General Musculoskeletal head and neck Overall: cervical spine benign 04/19/2011 None Full Exam - General Musculoskeletal gait and station Overall: normal gait 04/19/2011 None Full Exam - General Musculoskeletal gait and station Overall: normal station 04/19/2011 None Full Exam - General Neurologic mental status Overall: oriented 04/19/2011 None Full Exam - General Psychiatric orientation/consciousness Overall: oriented to person, place and time 04/19/2011 None Full Exam - General Psychiatric mood and affect Overall: normal mood and affect 04/19/2011 None Full Exam - General Constitutional general appearance Overall: well nourished 04/19/2011 None Full Exam - General Constitutional general appearance Overall: well developed 04/19/2011 None Full Exam - General Constitutional general appearance Overall: in no acute distress 04/19/2011 None Full Exam - General Eyes pupils and irises Overall: pupils equal, round, reactive to light and accomodation 04/19/2011 None Full Exam - General Ears/Nose/Throat otoscopic exam Overall: external auditory canals clear 04/19/2011 None Full Exam - General Ears/Nose/Throat otoscopic exam Overall: tympanic membranes clear 04/19/2011 None Full Exam - General Psychiatric appearance Overall: well-groomed, good eye contact 04/19/2011 None Full Exam - General Psychiatric speech Overall: normal quality, no aphasia 04/19/2011 None Full Exam - General 1994 Constitutional general appearance Overall: well nourished 03/08/2011 None Full Exam - General 1994 Constitutional general appearance Overall: well developed 03/08/2011 None Full Exam - General 1994 Constitutional general appearance Overall: in no acute distress 03/08/2011 None Full Exam - General 1994 Cardiovascular auscultation of heart Overall: regular rate 03/08/2011 None Full Exam - General 1994 Cardiovascular auscultation of heart Overall: normal heart sounds 03/08/2011 None Full Exam - General 1994 Neurologic gait Overall: no ataxia, no unsteadiness 03/08/2011 None Full Exam - General 1994 Psychiatric orientation/consciousness Overall: oriented to person, place and time 03/08/2011 None Full Exam - General 1994 Psychiatric mood and affect Overall: normal mood and affect 03/08/2011 None Full Exam - General 1994 Integument inspection of skin Location: right hand 03/08/2011 index finger - suture removed and the lesion was dressed with neosporin and bandaid and pt given instructions on cleansing. Full Exam - General 1994 Psychiatric mood and affect Overall: normal mood and affect 03/01/2011 None Full Exam - General 1994 Psychiatric orientation/consciousness Overall: oriented to person, place and time 03/01/2011 None Full Exam - General 1994 Neurologic gait Overall: no ataxia, no unsteadiness 03/01/2011 None Full Exam - General 1994 Cardiovascular auscultation of heart Overall: regular rate 03/01/2011 None Full Exam - General 1994 Cardiovascular auscultation of heart Overall: normal heart sounds 03/01/2011 None Full Exam - General 1994 Constitutional general appearance Overall: well nourished 03/01/2011 None Full Exam - General 1994 Constitutional general appearance Overall: well developed 03/01/2011 None Full Exam - General 1994 Constitutional general appearance Overall: in no acute distress 03/01/2011 None Full Exam - General 1994 Integument inspection of skin Location: right hand 03/01/2011 index finger with laceration and one suture, suture removed and the lesion was dressed with neosporin and bandaid. Full Exam - General Neurologic mental status Overall: alert 02/01/2011 memory test performed today - [facility] exam - score 21/30 Full Exam - General Ears/Nose/Throat oral cavity/pharynx/larynx Overall: oropharyngeal mucosa clear 02/01/2011 None Full Exam - General Abdomen abdominal exam Overall: no tenderness 02/01/2011 None Full Exam - General Abdomen abdominal exam Overall: normal bowel sounds 02/01/2011 None Full Exam - General Musculoskeletal head and neck Overall: head atraumatic 02/01/2011 None Full Exam - General Musculoskeletal head and neck Overall: cervical spine benign 02/01/2011 None Full Exam - General Musculoskeletal gait and station Overall: normal gait 02/01/2011 None Full Exam - General Musculoskeletal gait and station Overall: normal station 02/01/2011 None Full Exam - General Ears/Nose/Throat otoscopic exam Overall: tympanic membranes clear 02/01/2011 None Full Exam - General Ears/Nose/Throat oral cavity/pharynx/larynx Overall: mobile tongue benign 02/01/2011 None Full Exam - General Neurologic mental status Overall: oriented 02/01/2011 None Full Exam - General Constitutional general appearance Overall: well nourished 02/01/2011 None Full Exam - General Constitutional general appearance Overall: well developed 02/01/2011 None Full Exam - General Constitutional general appearance Overall: in no acute distress 02/01/2011 None Full Exam - General Respiratory auscultation Overall: breath sounds clear bilaterally 02/01/2011 None Full Exam - General Respiratory respiratory effort/rhythm Overall: no retractions 02/01/2011 None Full Exam - General Respiratory respiratory effort/rhythm Overall: normal rate 02/01/2011 None Full Exam - General Psychiatric orientation/consciousness Overall: oriented to person, place and time 02/01/2011 None Full Exam - General Psychiatric mood and affect Overall: normal mood and affect 02/01/2011 None Full Exam - General Psychiatric appearance Overall: well-groomed, good eye contact 02/01/2011 None Full Exam - General Psychiatric speech Overall: normal quality, no aphasia 02/01/2011 None Full Exam - General Eyes pupils and irises Overall: pupils equal, round, reactive to light and accomodation 02/01/2011 None Full Exam - General Ears/Nose/Throat otoscopic exam Overall: external auditory canals clear 02/01/2011 None Full Exam - Genitourinary/Male Constitutional general appearance Overall: well nourished 01/27/2011 None Full Exam - Genitourinary/Male Constitutional general appearance Overall: well developed 01/27/2011 None Full Exam - Genitourinary/Male Constitutional general appearance Overall: in no acute distress 01/27/2011 None Full Exam - Genitourinary/Male Eyes conjunctiva/eyelids Overall: conjunctiva clear 01/27/2011 None Full Exam - Genitourinary/Male Eyes pupils and irises Overall: pupils equal, round, reactive to light and accomodation 01/27/2011 None Full Exam - Genitourinary/Male Ears/Nose/Throat otoscopic exam Overall: external auditory canals clear 01/27/2011 None Full Exam - Genitourinary/Male Ears/Nose/Throat otoscopic exam Overall: tympanic membranes clear 01/27/2011 None Full Exam - Genitourinary/Male Neck inspection of neck Overall: normal size 01/27/2011 None Full Exam - Genitourinary/Male Neck inspection of neck Overall: normal appearance 01/27/2011 None Full Exam - Genitourinary/Male Respiratory auscultation Overall: breath sounds clear bilaterally 01/27/2011 None Full Exam - Genitourinary/Male Respiratory respiratory effort/rhythm Overall: normal rate 01/27/2011 None Full Exam - Genitourinary/Male Cardiovascular auscultation of heart Overall: regular rate 01/27/2011 None Full Exam - Genitourinary/Male Cardiovascular auscultation of heart Overall: normal heart sounds 01/27/2011 None Full Exam - Genitourinary/Male Genitourinary epididymides Overall: symmetrical 01/27/2011 None Full Exam - Genitourinary/Male Genitourinary epididymides Overall: normal size, consistency 01/27/2011 None Full Exam - Genitourinary/Male Genitourinary epididymides Overall: non tender 01/27/2011 None Full Exam - Genitourinary/Male Genitourinary scrotum Overall: no lesions or cyst present 01/27/2011 None Full Exam - Genitourinary/Male Genitourinary scrotum Overall: no rash present 01/27/2011 None Full Exam - Genitourinary/Male Genitourinary testes Overall: bilateral descended testes 01/27/2011 None Full Exam - Genitourinary/Male Genitourinary testes Overall: no masses 01/27/2011 None Full Exam - Genitourinary/Male Genitourinary testes Overall: non-tender 01/27/2011 None Full Exam - Genitourinary/Male Lymphatic inspection and palpation of nodes Overall: anterior cervical chain benign 01/27/2011 None Full Exam - Genitourinary/Male Lymphatic inspection and palpation of nodes Overall: posterior cervical chain benign 01/27/2011 None Full Exam - Genitourinary/Male Integument inspection and palpation of skin Overall: no rash, lesions 01/27/2011 None Full Exam - Genitourinary/Male Psychiatric orientation/consciousness Overall: oriented to person, place and time 01/27/2011 None Full Exam - General 1995 Psychiatric orientation/consciousness Overall: oriented to person, place and time 01/26/2011 None Full Exam - General 1994 Integument inspection of skin Location: left arm 01/26/2011 with bruising noted to left AC space and left wrist. Area soft. Nontender. Good radial pulse. Full Exam - General 1994 Constitutional general appearance Overall: well nourished 01/26/2011 None Full Exam - General 1994 Constitutional general appearance Overall: well developed 01/26/2011 None Full Exam - General 1994 Constitutional general appearance Overall: in no acute distress 01/26/2011 None Full Exam - General 1994 Constitutional general appearance Hygiene/Attention to Grooming: good hygiene 01/26/2011 None Full Exam - General 1994 Constitutional general appearance Hygiene/Attention to Grooming: normal grooming 01/26/2011 None Full Exam - General 1994 Respiratory auscultation Overall: breath sounds clear bilaterally 01/26/2011 None Full Exam - General 1994 Respiratory respiratory effort/rhythm Overall: no retractions 01/26/2011 None Full Exam - General 1994 Respiratory respiratory effort/rhythm Overall: normal rate 01/26/2011 None Full Exam - General 1994 Cardiovascular auscultation of heart Overall: regular rate 01/26/2011 None Full Exam - General 1994 Cardiovascular auscultation of heart Overall: normal heart sounds 01/26/2011 None Full Exam - General 1994 Cardiovascular auscultation of heart Overall: no murmurs 01/26/2011 None Full Exam - General 1994 Constitutional general appearance Overall: well nourished 01/15/2011 None Full Exam - General 1994 Constitutional general appearance Overall: well developed 01/15/2011 None Full Exam - General 1994 Constitutional general appearance Overall: in no acute distress 01/15/2011 None Full Exam - General 1994 Constitutional general appearance Hygiene/Attention to Grooming: good hygiene 01/15/2011 None Full Exam - General 1994 Constitutional general appearance Hygiene/Attention to Grooming: normal grooming 01/15/2011 None Full Exam - General 1994 Eyes conjunctiva /eyelids Overall: conjunctiva clear 01/15/2011 None Full Exam - General 1994 Eyes conjunctiva /eyelids Overall: eyelids normal 01/15/2011 None Full Exam - General 1994 Eyes pupils and irises Overall: pupils equal, round, reactive to light and accomodation 01/15/2011 None Full Exam - General 1994 Ears/Nose/Throat otoscopic exam Overall: external auditory canals clear 01/15/2011 None Full Exam - General 1995 Ears/Nose/Throat otoscopic exam Overall: tympanic membranes clear 01/15/2011 None Full Exam - General 1995 Ears/Nose/Throat lips/teeth/gingiva Overall: benign lips 01/15/2011 None Full Exam - General 1995 Ears/Nose/Throat lips/teeth/gingiva Overall: normal dentition 01/15/2011 None Full Exam - General 1995 Ears/Nose/Throat lips/teeth/gingiva Overall: no masses 01/15/2011 None Full Exam - General 1995 Ears/Nose/Throat oral cavity/pharynx/larynx Overall: oral mucosa clear 01/15/2011 None Full Exam - General 1995 Ears/Nose/Throat oral cavity/pharynx/larynx Overall: oropharyngeal mucosa clear 01/15/2011 None Full Exam - General 1994 Neck thyroid Overall: normal size 01/2011 None Full Exam - General 1994 Neck thyroid Overall: no mass lesions 01/15/2011 None Full Exam - General 1994 Neck inspection of neck Overall: normal size 01/15/2011 None Full Exam - General 1994 Neck inspection of neck Overall: normal appearance 01/15/2011 None Full Exam - General 1994 Neck inspection of neck Overall: no masses 01/15/2011 None Full Exam - General 1994 Respiratory auscultation Overall: breath sounds clear bilaterally 01/15/2011 None Full Exam - General 1994 Respiratory respiratory effort/rhythm Overall: no retractions 01/15/2011 None Full Exam - General 1994 Respiratory respiratory effort/rhythm Overall: normal rate 01/15/2011 None Full Exam - General 1994 Cardiovascular auscultation of heart Overall: regular rate 01/15/2011 None Full Exam - General 1994 Cardiovascular auscultation of heart Overall: normal heart sounds 01/15/2011 None Full Exam - General 1994 Cardiovascular auscultation of heart Overall: no murmurs 01/15/2011 None Full Exam - General 1994 Chest/Breast breast/chest inspection Overall: normal chest shape 01/15/2011 None Full Exam - General 1994 Abdomen abdominal exam Overall: no tenderness 01/15/2011 None Full Exam - General 1994 Abdomen abdominal exam Overall: normal bowel sounds 01/15/2011 None Full Exam - General 1994 Abdomen liver and spleen exam Overall: no hepatosplenomegaly 01/15/2011 None Full Exam - General 1994 Lymphatic neck nodes Overall: anterior cervical chain benign 01/15/2011 None Full Exam - General 1994 Lymphatic neck nodes Overall: posterior cervical chain benign 01/15/2011 None Full Exam - General 1995 Musculoskeletal head and neck Overall: head atraumatic 01/15/2011 None Full Exam - General 1994 Musculoskeletal head and neck Overall: cervical spine benign 01/15/2011 None Full Exam - General 1994 Musculoskeletal spine, ribs and pelvis Overall: good posture 01/15/2011 None Full Exam - General 1994 Musculoskeletal gait and station Overall: normal gait 01/15/2011 None Full Exam - General 1994 Musculoskeletal gait and station Overall: normal station 01/15/2011 None Full Exam - General 1994 Neurologic cranial nerves Overall: cranial nerves 1- 12 intact 01/15/2011 None Full Exam - General 1994 Psychiatric orientation/consciousness Overall: oriented to person, place and time 01/15/2011 None Full Exam - General 1994 Psychiatric mood and affect Overall: normal mood and affect 01/15/2011 None Full Exam - General 1994 Abdomen abdominal exam Contour: flat 01/15/2011 None Full Exam - General 1994 Constitutional general appearance Overall: well nourished 01/06/2011 None Full Exam - General 1994 Constitutional general appearance Overall: well developed 01/06/2011 None Full Exam - General 1994 Constitutional general appearance Overall: in no acute distress 01/06/2011 None Full Exam - General 1994 Constitutional general appearance Hygiene/Attention to Grooming: good hygiene 01/06/2011 None Full Exam - General 1994 Constitutional general appearance Hygiene/Attention to Grooming: normal grooming 01/06/2011 None Full Exam - General 1994 Eyes pupils and irises Overall: pupils equal, round, reactive to light and accomodation 01/06/2011 None Full Exam - General 1994 Eyes conjunctiva /eyelids Overall: conjunctiva clear 01/06/2011 None Full Exam - General 1994 Eyes conjunctiva /eyelids Overall: eyelids normal 01/06/2011 None Full Exam - General 1994 Ears/Nose/Throat otoscopic exam Overall: external auditory canals clear 01/06/2011 None Full Exam - General 1994 Ears/Nose/Throat otoscopic exam Overall: tympanic membranes clear 01/06/2011 None Full Exam - General 1994 Ears/Nose/Throat lips/teeth/gingiva Overall: benign lips 01/06/2011 None Full Exam - General 1994 Ears/Nose/Throat lips/teeth/gingiva Overall: normal dentition 01/06/2011 None Full Exam - General 1994 Ears/Nose/Throat lips/teeth/gingiva Overall: no masses 01/06/2011 None Full Exam - General 1994 Ears/Nose/Throat oral cavity/pharynx/larynx Overall: oral mucosa clear 01/06/2011 None Full Exam - General 1994 Ears/Nose/Throat oral cavity/pharynx/larynx Overall: oropharyngeal mucosa clear 01/06/2011 None Full Exam - General 1994 Neck thyroid Overall: normal size None Full Exam - General 1994 Neck thyroid Overall: no mass lesions 01/06/2011 None Full Exam - General 1994 Neck inspection of neck Overall: normal size 01/06/2011 None Full Exam - General 1994 Neck inspection of neck Overall: normal appearance 01/06/2011 None Full Exam - General 1994 Neck inspection of neck Overall: no masses 01/06/2011 None Full Exam - General 1994 Respiratory auscultation Overall: breath sounds clear bilaterally 01/06/2011 None Full Exam - General 1994 Respiratory respiratory effort/rhythm Overall: no retractions 01/06/2011 None Full Exam - General 1994 Respiratory respiratory effort/rhythm Overall: normal rate 01/06/2011 None Full Exam - General 1994 Cardiovascular auscultation of heart Overall: regular rate 01/06/2011 None Full Exam - General 1994 Cardiovascular auscultation of heart Overall: normal heart sounds 01/06/2011 None Full Exam - General 1994 Cardiovascular auscultation of heart Overall: no murmurs 01/06/2011 None Full Exam - General 1994 Chest/Breast breast/chest inspection Overall: normal chest shape 01/06/2011 None Full Exam - General 1994 Abdomen abdominal exam Overall: no tenderness 01/06/2011 None Full Exam - General 1994 Abdomen abdominal exam Overall: normal bowel sounds 01/06/2011 None Full Exam - General 1994 Abdomen liver and spleen exam Overall: no hepatosplenomegaly 01/06/2011 None Full Exam - General 1994 Lymphatic neck nodes Overall: anterior cervical chain benign 01/06/2011 None Full Exam - General 1994 Lymphatic neck nodes Overall: posterior cervical chain benign 01/06/2011 None Full Exam - General 1994 Musculoskeletal head and neck Overall: head atraumatic 01/06/2011 None Full Exam - General 1994 Musculoskeletal head and neck Overall: cervical spine benign 01/06/2011 None Full Exam - General 1994 Musculoskeletal spine, ribs and pelvis Overall: good posture 01/06/2011 None Full Exam - General 1994 Musculoskeletal gait and station Overall: normal gait 01/06/2011 None Full Exam - General 1994 Musculoskeletal gait and station Overall: normal station 01/06/2011 None Full Exam - General 1994 Neurologic cranial nerves Overall: cranial nerves 1- 12 intact 01/06/2011 None Full Exam - General 1994 Psychiatric orientation/consciousness Overall: oriented to person, place and time 01/06/2011 None Full Exam - General 1994 Psychiatric mood and affect Overall: normal mood and affect 01/06/2011 None Procedures Procedure Codes Date ADMIN INFLUENZA VIRUS VAC CPT-4: G0008 01/25/2017 FLU VACC PRSV FREE INC ANTIG CPT-4: 52787 01/25/2017 THER/PROPH/DIAG INJ SC/IM CPT-4: 92215 11/25/2016 TRIAMCINOLONE ACET INJ NOS CPT-4: J3301 11/25/2016 DRAIN/INJECT JOINT/BURSA CPT-4: 70079 02/17/2016 IMMUNIZATION ADMIN CPT -4: 54824 05/06/2015 PNEUMOCOCCAL VACC 13 TIFFANIE IM Formatting Model/CDA Sections, Assigned to/Celia Minaya SNOMED CT: 84469151 CPT-4: 23019Onlkdwy 05/06/2015 ADMIN INFLUENZA VIRUS VAC CPT-4: G0008 02/19/2015 FLU VACC 4 TIFFANIE 3 YRS PLUS IM Formatting Model/CDA Sections, Assigned to SNOMED CT: 13707615 CPT-4: 64069Arhbbkm 02/19/2015 URINALYSIS NONAUTO W/O SCOPE CPT-4: 79975 05/23/2014 ADMIN INFLUENZA VIRUS VAC CPT-4: G0008 03/26/2014 FLU VAC NO PRSV 4 TIFFANIE 3 YRS+ Assigned to/Celia Minaya CPT-4: 11609Yyafikj 03/26/2014 PRESCRIP TRANSMIT VIA ERX SY CPT-4: G8553 04/04/2013 ROUTINE VENIPUNCTURE CPT-4: 32687 02/19/2013 ADMIN INFLUENZA VIRUS VAC CPT-4: G0008 02/06/2013 FLULAVAL VACC, 3 YRS & >, IM CPT-4: Q2036 02/06/2013 87303 EST. PATIENT, LEVEL IV CPT-4: 93441 06/19/2012 PRESCRIP TRANSMIT VIA ERX SY CPT-4: G8553 06/19/2012 PRESCRIP TRANSMIT VIA ERX SY CPT-4: G8553 03/20/2012 PRESCRIP TRANSMIT VIA ERX SY CPT-4: G8553 06/23/2011 IMMUNIZATION ADMIN CPT -4: 29159 02/25/2011 ZOSTER VACC SC (No charge, patient supplied vaccine) CPT-4: 43651SC 02/25/2011 ADMIN PNEUMOCOCCAL VACCINE SNOMED CT: [id number] CPT-4: G0009 02/16/2011 Pneumococcal Polysaccharide Vaccine, 23-Valent, Ad CPT-4: 35848 02/16/2011 ADMIN INFLUENZA VIRUS VAC CPT-4: G0008 02/09/2011 FLULAVAL VACC, 3 YRS & >, IM CPT-4: Q2036 02/09/2011 PRESCRIP TRANSMIT VIA ERX SY CPT-4: G8553 02/01/2011 URINALYSIS NONAUTO W/O SCOPE CPT-4: 78726 01/27/2011 Vital Signs Date Vital 03/21/2017 Blood Pressure 1: 128/66 Code : 8480-6 BMI: 20.8 Code : 28076-6 Heart Rate 1 : 61 bpm Height: 5'9" SpO2: 98% Weight: 141 lbs 03/08/2017 Blood Pressure 1: 134/68 Code : 8480-6 BMI: 20.4 Code : 26377-0 Heart Rate 1 : 56 bpm Height: 5'9" SpO2: 99% Weight: 138 lbs 01/25/2017 Blood Pressure 1: 98/62 Code : 8480-6 BMI: 20.6 Code : 04024-4 Heart Rate 1 : 71 bpm Height: 5'9" SpO2: 97% Weight: 139 lbs 8 oz 12/20/2016 Blood Pressure 1: 120/68 Code : 8480-6 BMI: 20.4 Code : 87721-0 Heart Rate 1 : 70 bpm Height: 5'9" SpO2: 98% Weight: 138 lbs 12/01/2016 Blood Pressure 1: 100/60 Code : 8480-6 Heart Rate 1: 86 bpm Height: SpO2: 96% Temperature: 37.2 (C) / 98.9 (F) Weight: 11/25/2016 Blood Pressure 1: 112/60 Code : 8480-6 Heart Rate 1: 86 bpm Height: SpO2: 97% Temperature: 37.2 (C) / 98.9 (F) Weight: 11/18/2016 Blood Pressure 1: 120/60 Code : 8480-6 BMI: 20.7 Code : 24373-8 Heart Rate 1 : 74 bpm Height: 5'9" SpO2: 95% Weight: 140 lbs 08/23/2016 Blood Pressure 1: 118/68 Code : 8480-6 BMI: 20.8 Code : 20377-7 Heart Rate 1 : 54 bpm Height: 5'9" SpO2: 97% Weight: 141 lbs 04/26/2016 Blood Pressure 1: 108/64 Code : 8480-6 BMI: 21.0 Code : 18674-1 Heart Rate 1 : 62 bpm Height: 5'9" SpO2: 95% Weight: 142 lbs 02/17/2016 Blood Pressure 1: 138/80 Code : 8480-6 BMI: 20.2 Code : 09214-7 Heart Rate 1 : 76 bpm Height: 5'9" SpO2: 97% Weight: 137 lbs 02/09/2016 Blood Pressure 1: 140/76 Code : 8480-6 BMI: 20.2 Code : 38498-3 Heart Rate 1 : 72 bpm Height: 5'9" SpO2: 96% Weight: 137 lbs 02/03/2016 Blood Pressure 1: 136/80 Code : 8480-6 BMI: 20.7 Code : 57994-0 Heart Rate 1 : 86 bpm Height: 5'9" SpO2: 96% Weight: 140 lbs 01/26/2016 Blood Pressure 1: 144/78 Code : 8480-6 BMI: 20.7 Code : 10253-1 Heart Rate 1 : 73 bpm Height: 5'9" SpO2: 97% Temperature: 37.0 (C) / 98.6 (F) Weight: 140 lbs 01/21/2016 Blood Pressure 1: 116/62 Code : 8480-6 BMI: 20.4 Code : 98418-6 Heart Rate 1 : 66 bpm Height: 5'9" SpO2: 97% Weight: 138 lbs 12/29/2015 Blood Pressure 1: 130/74 Code : 8480-6 BMI: 20.4 Code : 40765-4 Heart Rate 1 : 51 bpm Height: 5'9" SpO2: 98% Weight: 138 lbs 09/02/2015 Blood Pressure 1: 126/60 Code : 8480-6 BMI: 22.3 Code : 22433-9 Heart Rate 1 : 55 bpm Height: 5'9" SpO2: 96% Weight: 151 lbs 05/06/2015 Blood Pressure 1: 132/72 Code : 8480-6 BMI: 21.0 Code : 74418-1 Heart Rate 1 : 63 bpm Height: 5'9" SpO2: 97% Weight: 142 lbs 03/05/2015 Blood Pressure 1: 130/68 Code : 8480-6 BMI: 21.0 Code : 55703-6 Heart Rate 1 : 61 bpm Height: 5'9" SpO2: 96% Weight: 142 lbs 12/04/2014 Blood Pressure 1: 122/64 Code : 8480-6 BMI: 21.3 Code : 38639-0 Heart Rate 1 : 72 bpm Height: 5'9" Weight: 144 lbs 09/24/2014 Blood Pressure 1: 142/80 Code : 8480-6 BMI: 20.4 Code : 20126-0 Heart Rate 1 : 80 bpm Height: 5'9" Weight: 138 lbs 09/09/2014 Blood Pressure 1: 122/74 Code : 8480-6 BMI: 20.5 Code : 01642-6 Heart Rate 1 : 64 bpm Height: 5'9" Weight: 139 lbs 07/26/2014 Blood Pressure 1: 136/82 Code : 8480-6 BMI: 20.4 Code : 60743-8 Heart Rate 1 : 87 bpm Height: 5'9" SpO2: 92% Weight: 138 lbs 07/10/2014 Blood Pressure 1: 130/74 Code : 8480-6 BMI: 21.1 Code : 61886-5 Heart Rate 1 : 64 bpm Height: 5'9" Weight: 143 lbs 06/06/2014 Blood Pressure 1: 142/88 Code : 8480-6 BMI: 20.4 Code : 80990-4 Heart Rate 1 : 68 bpm Height: 5'9" Weight: 138 lbs 05/29/2014 Blood Pressure 1: 108/72 Code : 8480-6 BMI: 20.5 Code : 29038-9 Heart Rate 1 : 60 bpm Height: 5'9" Weight: 139 lbs 05/20/2014 Blood Pressure 1: 140/72 Code : 8480-6 BMI: 21.6 Code : 48217-3 Heart Rate 1 : 60 bpm Height: 5'9" SpO2: 98% Temperature: 36.2 (C) / 97.2 (F) Weight: 146 lbs 03/25/2014 Blood Pressure 1: 128/60 Code : 8480-6 BMI: 21.4 Code : 03878-7 Heart Rate 1 : 62 bpm Height: 5'9" Weight: 145 lbs 02/08/2014 Blood Pressure 1: 136/82 Code : 8480-6 BMI: 21.3 Code : 51317-5 Heart Rate 1 : 68 bpm Height: 5'9" Weight: 144 lbs 12/24/2013 Blood Pressure 1: 122/76 Code : 8480-6 BMI: 21.6 Code : 85330-1 Heart Rate 1 : 58 bpm Height: 5'9" Weight: 146 lbs 11/20/2013 Blood Pressure 1: 112/62 Code : 8480-6 BMI: 20.7 Code : 96939-2 Heart Rate 1 : 56 bpm Height: 5'9" Weight: 140 lbs 10/30/2013 Blood Pressure 1: 130/68 Code : 8480-6 BMI: 20.1 Code : 58167-6 Heart Rate 1 : 68 bpm Height: 5'9" SpO2: 96% Weight: 136 lbs 10/08/2013 Blood Pressure 1: 128/72 Code : 8480-6 BMI: 20.8 Code : 71280-5 Heart Rate 1 : 60 bpm Height: 5'9" Temperature: 36.6 (C) / 97.8 (F) Weight: 141 lbs 06/18/2013 Blood Pressure 1: 124/78 Code : 8480-6 BMI: 20.8 Code : 92672-8 Heart Rate 1 : 64 bpm Height: 5'9" Weight: 141 lbs 04/04/2013 Blood Pressure 1: 138/60 Code : 8480-6 BMI: 20.8 Code : 66239-6 Heart Rate 1 : 56 bpm Height: 5'9" Weight: 141 lbs 02/19/2013 Blood Pressure 1: 152/74 Code : 8480-6 BMI: 21.0 Code : 30918-9 Heart Rate 1 : 60 bpm Height: 5'9" Weight: 142 lbs 10/16/2012 Blood Pressure 1: 122/70 Code : 8480-6 BMI: 20.8 Code : 59573-3 Heart Rate 1 : 64 bpm Height: 5'9" Weight: 141 lbs 06/19/2012 Blood Pressure 1: 120/72 Code : 8480-6 BMI: 21.1 Code : 44959-2 Heart Rate 1 : 60 bpm Height: 5'9" Weight: 143 lbs 03/20/2012 Blood Pressure 1: 114/76 Code : 8480-6 Heart Rate 1: 60 bpm Respiratory Rate : 16 bpm Weight: 143 lbs 01/24/2012 Blood Pressure 1: 134/70 Code : 8480-6 Heart Rate 1: 64 bpm Weight: 143 lbs 12/20/2011 Blood Pressure 1: 98/72 Code : 8480-6 BMI: 21.1 Code : 30588-2 Heart Rate 1 : 60 bpm Height: 5'9" Respiratory Rate: 16 bpm Weight: 143 lbs 12/09/2011 Blood Pressure 1: 110/60 Code : 8480-6 Heart Rate 1: 66 bpm SpO2: 98% Weight: 141 lbs 08/25/2011 Blood Pressure 1: 112/70 Code : 8480-6 BMI: 20.8 Code : 08532-4 Heart Rate 1 : 54 bpm Height: 5'9" Respiratory Rate: 16 bpm Weight: 141 lbs 06/23/2011 Blood Pressure 1: 126/64 Code : 8480-6 Heart Rate 1: 60 bpm Respiratory Rate : 16 bpm Weight: 142 lbs 04/19/2011 Blood Pressure 1: 124/64 Code : 8480-6 BMI: 21.1 Code : 66083-8 Heart Rate 1 : 64 bpm Height: 5'9" Respiratory Rate: 16 bpm Weight: 143 lbs 03/23/2011 Blood Pressure 1: 137/71 Code : 8480-6 Heart Rate 1: 57 bpm 03/08/2011 Blood Pressure 1: 154/70 Code : 8480-6 BMI: 20.8 Code : 86796-4 Heart Rate 1 : 60 bpm Height: 5'9" Respiratory Rate: 16 bpm Weight: 141 lbs 03/01/2011 Blood Pressure 1: 178/80 Code : 8480-6 Blood Pressure 2: 168/70 Code: 8480-6 BMI: 24.1 Code: 53962-3 Heart Rate 1: 60 bpm Height: 5'9" Respiratory Rate: 16 bpm Weight: 163 lbs 02/01/2011 Blood Pressure 1: 162/84 Code : 8480-6 Heart Rate 1: 60 bpm Respiratory Rate : 16 bpm Weight: 144 lbs 01/27/2011 Blood Pressure 1: 138/54 Code : 8480-6 BMI: 21.1 Code : 14270-6 Heart Rate 1 : 68 bpm Height: 5'9" Respiratory Rate: 16 bpm Weight: 143 lbs 01/26/2011 Blood Pressure 1: 148/86 Code : 8480-6 BMI: 21.3 Code : 95296-6 Heart Rate 1 : 74 bpm Height: 5'9" Weight: 144 lbs 01/15/2011 Blood Pressure 1: 136/76 Code : 8480-6 BMI: 20.5 Code : 65058-2 Heart Rate 1 : 70 bpm Height: 5'10" Weight: 141 lbs 01/06/2011 Blood Pressure 1: 148/72 Code : 8480-6 BMI: 20.2 Code : 86098-2 Heart Rate 1 : 72 bpm Height: 5'10" Respiratory Rate: 12 bpm Weight: 139 lbs Functional Status No Functional Status data History of Present Illness Symptom Name Status Result Effective Date Notes hypertension Quality primary hypertension 03/21/2017 None hypertension Quality stable 03/21/2017 None hypertension Onset and Resolution ongoing 03/21/2017 None hypertension Onset of Symptom during adulthood 03/21/2017 None hypertension Blood Pressure Values patient checking blood pressure at home - did not bring in readings 03/21/2017 None hypertension Alleviating Factors medication 03/21/2017 None hypertension Pertinent Findings Denies dizziness 03/21/2017 None hypertension Pertinent Findings Denies dyspnea 03/21/2017 None hypertension Pertinent Findings Denies edema 03/21/2017 None earache Location left ear 03/08/2017 None earache Quality acute 03/08/2017 None earache Onset and Resolution sudden in onset 03/08/2017 None earache Onset of Symptom 1 days ago 03/08/2017 None earache Triggers no known triggers 03/08/2017 None earache Severity mild 03/08/2017 None earache Frequency of Episodes increasing 03/08/2017 None cough Location in the throat 01/25/2017 None hypertension Quality primary hypertension 01/25/2017 None hypertension Onset and Resolution ongoing 01/25/2017 None hypertension Onset of Symptom during adulthood 01/25/2017 None hypertension Alleviating Factors medication 01/25/2017 None cough Onset and Resolution resolved 01/25/2017 None hypertension Blood Pressure Values patient checking blood pressure at home - did not bring in readings 01/25/2017 None hypertension Pertinent Findings Denies dizziness 01/25/2017 None hypertension Pertinent Findings Denies dyspnea 01/25/2017 None hypertension Pertinent Findings Denies edema 01/25/2017 None hypertension Quality stable 01/25/2017 None cough Location in the throat 12/20/2016 None cough Quality intermittent 12/20/2016 None cough Onset and Resolution ongoing 12/20/2016 None cough Pertinent Findings Denies dyspnea 12/20/2016 None cough Pertinent Findings Denies fever 12/20/2016 None cough Location in the throat 12/01/2016 None cough Quality dry None cough Onset and Resolution ongoing 12/01/2016 None cough Onset of Symptom 1 months ago 12/01/2016 None cough Pertinent Findings Denies dyspnea 12/01/2016 None cough Pertinent Findings Denies fever 12/01/2016 None cough Location in the throat 11/25/2016 None cough Quality productive 11/25/2016 "very little" light yellow cough Onset and Resolution ongoing 11/25/2016 None cough Pertinent Findings Denies chest discomfort 11/25/2016 None cough Pertinent Findings Denies dyspnea 11/25/2016 None sinus congestion Quality intermittent 11/18/2016 None sinus congestion Onset and Resolution ongoing 11/18/2016 None sinus congestion Onset of Symptom 3 weeks ago 11/18/2016 None sinus congestion Pertinent Findings Denies facial pain 11/18/2016 None sinus congestion Pertinent Findings Denies fever 11/18/2016 None hypertension Quality stable 08/23/2016 None hypertension Onset and Resolution ongoing 08/23/2016 None hypertension Blood Pressure Values patient checking blood pressure at home - did not bring in readings 08/23/2016 None hypertension Severity mild 08/23/2016 None hypertension Alleviating Factors medication 08/23/2016 None hypertension Pertinent Findings Denies dizziness 08/23/2016 None hypertension Pertinent Findings Denies dyspnea 08/23/2016 None hypertension Pertinent Findings Denies edema 08/23/2016 None hypertension Quality stable 04/26/2016 None hypertension Onset and Resolution ongoing 04/26/2016 None hypertension Blood Pressure Values patient checking blood pressure at home - did not bring in readings 04/26/2016 None hypertension Severity mild 04/26/2016 None hypertension Alleviating Factors medication 04/26/2016 None hypertension Pertinent Findings Denies dizziness 04/26/2016 None hypertension Pertinent Findings Denies dyspnea 04/26/2016 None hypertension Pertinent Findings Denies edema 04/26/2016 None edema Onset of Symptom 1 weeks ago 02/17/2016 RIGHT ELBOW edema Limitation on Activities does not limit activities 02/17/2016 None edema Frequency of Episodes daily 02/17/2016 None edema Pertinent Findings Denies dyspnea 02/17/2016 None edema Pertinent Findings Denies limb redness 02/17/2016 None edema Pertinent Findings Denies tachypnea 02/17/2016 None edema Quality acute None edema Onset of Symptom 1 weeks ago 02/09/2016 RIGHT ELBOW edema Limitation on Activities does not limit activities 02/09/2016 None edema Frequency of Episodes daily 02/09/2016 None edema Pertinent Findings Denies dyspnea 02/09/2016 None edema Pertinent Findings Denies limb redness 02/09/2016 None edema Pertinent Findings Denies tachypnea 02/09/2016 None edema Quality acute None edema Onset of Symptom 1 weeks ago 02/03/2016 RIGHT ELBOW edema Frequency of Episodes daily 02/03/2016 None edema Pertinent Findings Denies dyspnea 02/03/2016 None edema Pertinent Findings Denies limb redness 02/03/2016 None edema Pertinent Findings Denies tachypnea 02/03/2016 None edema Limitation on Activities does not limit activities 02/03/2016 None muscle weakness Location diffusely 01/26/2016 None muscle weakness Quality both sides 01/26/2016 None muscle weakness Onset and Resolution ongoing 01/26/2016 None muscle weakness Onset and Resolution sudden in onset 01/26/2016 None muscle weakness Onset of Symptom 3 days ago 01/26/2016 None abdominal pain Location diffusely 01/26/2016 None abdominal pain Quality acute 01/26/2016 None abdominal pain Onset and Resolution sudden in onset 01/26/2016 None abdominal pain Onset of Symptom 3 days ago 01/26/2016 None abdominal pain Pertinent Findings Denies chills 01/26/2016 None abdominal pain Pertinent Findings cough 01/26/2016 None cough Location in the throat 01/21/2016 None cough Quality dry None cough Quality constant 01/21/2016 None cough Onset and Resolution sudden in onset 01/21/2016 None cough Onset of Symptom 5 days ago 01/21/2016 None cough Frequency of Episodes daily 01/21/2016 None fatigue Limitation on Activities does not limit activities 01/21/2016 None fatigue Onset of Symptom 3 days ago 01/21/2016 None fatigue Frequency of Episodes daily 01/21/2016 None fatigue Pertinent Findings cough 01/21/2016 None hypertension Quality stable 12/29/2015 None hypertension Onset and Resolution ongoing 12/29/2015 None hypertension Blood Pressure Values patient checking blood pressure at home - did not bring in readings 12/29/2015 None hypertension Severity mild 12/29/2015 None hypertension Alleviating Factors medication 12/29/2015 None hypertension Pertinent Findings Denies dizziness 12/29/2015 None hypertension Pertinent Findings Denies dyspnea 12/29/2015 None hypertension Pertinent Findings Denies edema 12/29/2015 None medication follow up Location oral intake 12/29/2015 None hypertension Quality stable 09/02/2015 None hypertension Onset and Resolution ongoing 09/02/2015 None hypertension Blood Pressure Values patient checking blood pressure at home - did not bring in readings 09/02/2015 None hypertension Severity mild 09/02/2015 None hypertension Alleviating Factors medication 09/02/2015 None hypertension Pertinent Findings Denies dizziness 09/02/2015 None hypertension Pertinent Findings Denies dyspnea 09/02/2015 None hypertension Alleviating Factors medication 05/06/2015 None hypertension Onset and Resolution ongoing 05/06/2015 None hypertension Quality stable 05/06/2015 None hypertension Blood Pressure Values patient checking blood pressure at home - did not bring in readings 05/06/2015 None hypertension Pertinent Findings Denies dizziness 05/06/2015 None hypertension Pertinent Findings Denies dyspnea 05/06/2015 None hypertension Severity mild 05/06/2015 None gastroesophageal reflux Onset and Resolution ongoing 03/05/2015 None gastroesophageal reflux Quality chronic 03/05/2015 None gastroesophageal reflux Quality heartburn 03/05/2015 None gastroesophageal reflux Significant Medications antacids 03/05/2015 - pt states that he still has to take his [place] - he does not feel like his GI tract/ reflux symptoms are controlled - gastroesophageal reflux Triggers stress 03/05/2015 None gastroesophageal reflux Alleviating Factors proton pump inhibitor 03/05/2015 None abdominal pain Onset and Resolution resolved 12/04/2014 None abdominal pain Triggers no known associated factors 12/04/2014 None abdominal pain Pertinent Findings Denies abdominal distension 12/04/2014 None abdominal pain Pertinent Findings Denies chills 12/04/2014 None abdominal pain Pertinent Findings Denies cough 12/04/2014 None abdominal pain Pertinent Findings Denies dyspepsia 12/04/2014 None abdominal pain Quality improving 12/04/2014 None abdominal pain Quality intermittent 09/24/2014 None abdominal pain Quality dull 09/24/2014 None abdominal pain Frequency of Episodes weekly 09/24/2014 None abdominal pain Pertinent Findings Denies back pain 09/24/2014 None abdominal pain Pertinent Findings bloating 09/24/2014 None abdominal pain Pertinent Findings Denies emesis 09/24/2014 None abdominal pain Pertinent Findings Denies heartburn 09/24/2014 he reports lots of gas and burping abdominal pain Pertinent Findings Denies nausea 09/24/2014 None abdominal pain Location in the LLQ 09/24/2014 None abdominal pain Location in the RLQ 09/24/2014 None abdominal pain Onset and Resolution ongoing 09/24/2014 None abdominal pain Onset of Symptom 2 months ago 09/24/2014 None abdominal pain Limitation on Activities moderately limits activities 09/24/2014 states it is worse in the morning and he has to go to bed. States it is not as bothersome by evening. States he is sleeping at night. abdominal pain Triggers no known associated factors 09/24/2014 None anxiety Onset and Resolution ongoing 09/09/2014 reports that he sleeps well at night except when he has to get up to use bathroom- sees Dr. Quintero. hypertension Quality chronic 09/09/2014 None hypertension Onset and Resolution ongoing 09/09/2014 None hypertension Blood Pressure Values pt checking blood pressure - see scanned document 09/09/2014 None hypertension Severity mild 09/09/2014 None hypertension Significant Family History hypertension 09/09/2014 None hypertension Significant Family History cardiac disease 09/09/2014 None hypertension Alleviating Factors medication 09/09/2014 None hypertension Exacerbating Factors stress 09/09/2014 None hypertension Pertinent Findings Denies anxiety 09/09/2014 None hypertension Pertinent Findings Denies confusion 09/09/2014 None hypertension Pertinent Findings Denies decreased energy 09/09/2014 None hypertension Pertinent Findings Denies dizziness 09/09/2014 None gas and bloating Onset and Resolution ongoing 07/26/2014 None gas and bloating Onset of Symptom days ago 07/26/2014 this morning gas and bloating Limitation on Activities does not limit activities 07/26/2014 None gas and bloating Severity mild, resulting in minimal discomfort 07/26/2014 None gas and bloating Frequency of Episodes decreasing 07/26/2014 None gas and bloating Triggers stress 07/26/2014 None gas and bloating Pertinent Findings Denies chills 07/26/2014 None gas and bloating Pertinent Findings Denies cough 07/26/2014 None gas and bloating Pertinent Findings Denies emesis 07/26/2014 None gas and bloating Pertinent Findings Denies fever 07/26/2014 None gas and bloating Pertinent Findings Denies nausea 07/26/2014 None Hospital Follow Up _ Other: [facility] 07/10/2014 Patient reports he is doing much better. Having no complaints at this time. vertigo Quality constant 06/06/2014 None vertigo Onset of Symptom 1 weeks ago 06/06/2014 None vertigo Frequency of Episodes hourly 06/06/2014 None vertigo Pertinent Findings chills 06/06/2014 None vertigo Pertinent Findings dizziness 06/06/2014 None vertigo Pertinent Findings lightheadedness 06/06/2014 None urinary frequency Onset of Symptom 1 weeks ago 06/06/2014 None urinary frequency Pertinent Findings chills 06/06/2014 None urinary frequency Pertinent Findings lightheadedness 06/06/2014 None chills Quality intermittent 06/06/2014 None chills Pertinent Findings lightheadedness 06/06/2014 None urinary frequency Quality acute 06/06/2014 None urinary frequency Onset and Resolution ongoing 06/06/2014 None urinary frequency Limitation on Activities moderately limits activities 06/06/2014 None urinary frequency Frequency of Episodes increasing 06/06/2014 None urinary frequency Triggers no known associated factors 06/06/2014 None urinary frequency Pertinent Findings Denies fever 06/06/2014 None chills Onset and Resolution ongoing 06/06/2014 None chills Frequency of Episodes decreasing 06/06/2014 None vertigo Onset and Resolution ongoing 06/06/2014 None vertigo Limitation on Activities moderately limits activities 06/06/2014 None vertigo Triggers no known associated factors 06/06/2014 None insomnia Quality difficulty falling asleep 05/29/2014 None insomnia Onset of Symptom _ days ago 05/29/2014 since Tuesday insomnia Pertinent Findings dizziness 05/29/2014 lightheaded insomnia Pertinent Findings Denies fever 05/29/2014 None insomnia Pertinent Findings Denies dyspnea 05/29/2014 None chills Quality intermittent 05/29/2014 None chills Onset of Symptom _ weeks ago 05/29/2014 since May 12 chills Pertinent Findings Denies fever 05/29/2014 None chills Pertinent Findings Denies dyspnea 05/29/2014 None chills Pertinent Findings Denies dizziness 05/29/2014 None chills Pertinent Findings Denies cough 05/29/2014 None chills Pertinent Findings lightheadedness 05/29/2014 None cough Location in the throat 05/20/2014 None cough Quality dry 04/2015 None cough Pertinent Findings Denies fever 05/20/2014 None cough Pertinent Findings weakness 05/20/2014 None cough Onset and Resolution ongoing 05/20/2014 None cough Onset of Symptom 8 days ago 05/20/2014 None cough Limitation on Activities does not limit activities 05/20/2014 None cough Frequency of Episodes unchanged 05/20/2014 None cough Triggers no known associated factors 05/20/2014 None cough Pertinent Findings Denies chest discomfort 05/20/2014 None cough Pertinent Findings Denies dyspnea 05/20/2014 None cough Pertinent Findings Denies ill contacts 05/20/2014 None cough Location in the throat 03/25/2014 None cough Quality hacking 03/25/2014 None cough Quality interrupts sleep 03/25/2014 None cough Onset of Symptom 3-4 months ago 03/25/2014 None cough Limitation on Activities does not limit activities 03/25/2014 None cough Frequency of Episodes increasing 03/25/2014 starts after supper, worse when he lays down at night cough Triggers recumbent position 03/25/2014 None cough Pertinent Findings Denies chest discomfort 03/25/2014 None cough Pertinent Findings Denies dyspnea 03/25/2014 None cough Pertinent Findings Denies facial pain 03/25/2014 None cough Pertinent Findings Denies fever 03/25/2014 None cough Pertinent Findings Denies heartburn 03/25/2014 None cough Pertinent Findings Denies hoarseness 03/25/2014 None cough Pertinent Findings Denies ill contacts 03/25/2014 None cough Pertinent Findings Denies lethargy 03/25/2014 None cough Pertinent Findings Denies sputum production 03/25/2014 None cough Pertinent Findings Denies tachypnea 03/25/2014 None cough Pertinent Findings Denies vomiting 03/25/2014 None sinus congestion Quality acute 03/25/2014 None sinus congestion Onset and Resolution ongoing 03/25/2014 None sinus congestion Severity mild 03/25/2014 None sinus congestion Significant Medical Conditions allergic rhinitis 03/25/2014 None sinus congestion Triggers allergens 03/25/2014 None sinus congestion Exacerbating Factors allergen exposure 03/25/2014 None sinus congestion Pertinent Findings cough 03/25/2014 - clearing his throat - sinus congestion Pertinent Findings Denies hoarseness 03/25/2014 None sinus congestion Pertinent Findings weight loss 03/25/2014 - has improved - cough Quality hacking 02/08/2014 None cough Quality interrupts sleep 02/08/2014 None cough Location in the throat 02/08/2014 None cough Onset of Symptom 3-4 months ago 02/08/2014 None cough Pertinent Findings Denies fever 02/08/2014 None cough Pertinent Findings Denies hoarseness 02/08/2014 None earache Location left ear 02/08/2014 None earache Quality acute 02/08/2014 None earache Onset of Symptom 5 days ago 02/08/2014 None cough Limitation on Activities does not limit activities 02/08/2014 None cough Frequency of Episodes increasing 02/08/2014 starts after supper, worse when he lays down at night cough Triggers recumbent position 02/08/2014 None cough Pertinent Findings Denies chest discomfort 02/08/2014 None cough Pertinent Findings Denies dyspnea 02/08/2014 None cough Pertinent Findings Denies facial pain 02/08/2014 None cough Pertinent Findings Denies heartburn 02/08/2014 None cough Pertinent Findings Denies ill contacts 02/08/2014 None cough Pertinent Findings Denies lethargy 02/08/2014 None cough Pertinent Findings Denies sputum production 02/08/2014 None cough Pertinent Findings Denies vomiting 02/08/2014 None cough Pertinent Findings Denies tachypnea 02/08/2014 None earache Severity mild 02/08/2014 None Weight follow up Quality acute 12/24/2013 None Weight follow up Quality improving 12/24/2013 None Weight follow up Severity mild 12/24/2013 None Weight follow up Alleviating Factors eating 12/24/2013 None Weight follow up Pertinent Findings Denies fever 12/24/2013 None sinus congestion Quality acute 12/24/2013 None sinus congestion Onset and Resolution ongoing 12/24/2013 None sinus congestion Severity mild 12/24/2013 None sinus congestion Significant Medical Conditions allergic rhinitis 12/24/2013 None sinus congestion Triggers allergens 12/24/2013 None sinus congestion Exacerbating Factors allergen exposure 12/24/2013 None sinus congestion Pertinent Findings cough 12/24/2013 - clearing his throat - sinus congestion Pertinent Findings Denies hoarseness 12/24/2013 None sinus congestion Pertinent Findings weight loss 12/24/2013 - has improved - Weight follow up Quality acute 11/20/2013 None Weight follow up Quality improving 11/20/2013 None Weight follow up Severity mild 11/20/2013 None Weight follow up Pertinent Findings Denies fever 11/20/2013 None Weight follow up Alleviating Factors eating 11/20/2013 None sinus congestion Quality acute 11/20/2013 None sinus congestion Onset and Resolution ongoing 11/20/2013 None sinus congestion Severity mild 11/20/2013 None sinus congestion Significant Medical Conditions allergic rhinitis 11/20/2013 None sinus congestion Exacerbating Factors allergen exposure 11/20/2013 None sinus congestion Triggers allergens 11/20/2013 None sinus congestion Pertinent Findings cough 11/20/2013 - clearing his throat - sinus congestion Pertinent Findings Denies hoarseness 11/20/2013 None sinus congestion Pertinent Findings weight loss 11/20/2013 - has improved - weight loss Weight Status has lost 5 pounds in 3weeks 10/30/2013 None chills Quality acute 10/30/2013 None chills Onset of Symptom 1 days ago 10/30/2013 states had to go to bed with blankets and fully dressed to get warm fatigue Onset and Resolution worse during the day 10/30/2013 None fatigue Limitation on Activities moderately limits activities 10/30/2013 None fatigue Frequency of Episodes increasing 10/30/2013 None cough Quality dry 06/2013 None cough Pertinent Findings Denies fever 10/08/2013 None cough Pertinent Findings nasal congestion 10/08/2013 None cough Onset of Symptom 2 weeks ago 10/08/2013 None cough Onset and Resolution ongoing 10/08/2013 None sinus congestion Quality acute 10/08/2013 None sinus congestion Quality worsening 10/08/2013 since september 24, has not had a fever , but has been feeling worse over the past few weeks. sinus congestion Severity moderate 10/08/2013 None sinus congestion Triggers allergens 10/08/2013 [place] grasses hypertension Quality chronic 06/18/2013 None hypertension Onset and Resolution ongoing 06/18/2013 None hypertension Blood Pressure Values pt checking blood pressure - see scanned document 06/18/2013 None hypertension Pertinent Findings Denies anxiety 06/18/2013 None hypertension Pertinent Findings Denies confusion 06/18/2013 None hypertension Pertinent Findings Denies decreased energy 06/18/2013 None hypertension Pertinent Findings Denies dizziness 06/18/2013 None hypertension Exacerbating Factors stress 06/18/2013 None hypertension Alleviating Factors medication 06/18/2013 None hypertension Severity mild 06/18/2013 None hypertension Significant Family History cardiac disease 06/18/2013 None hypertension Significant Family History hypertension 06/18/2013 None hypertension Quality chronic 04/04/2013 None hypertension Onset and Resolution ongoing 04/04/2013 None hypertension Blood Pressure Values pt checking blood pressure - see scanned document 04/04/2013 upset with as she isn't getting things ready for thanksgiving. mentioned several times that he is upset with 's ways, that he just has to grin and bear it hypertension Pertinent Findings Denies dizziness 04/04/2013 None hypertension Pertinent Findings Denies edema 04/04/2013 None hypertension Pertinent Findings Denies dyspnea 04/04/2013 None hypertension Pertinent Findings Denies palpitations 04/04/2013 None hypertension Onset of Symptom during adulthood 04/04/2013 None hypertension Triggers stress 04/04/2013 None hypertension Alleviating Factors medication 04/04/2013 None hypertension Exacerbating Factors stress 04/04/2013 None hypertension Quality chronic 02/19/2013 None hypertension Quality stable 02/19/2013 None hypertension Onset and Resolution ongoing 02/19/2013 None hypertension Blood Pressure Values patient checking blood pressure at home - did not bring in readings 02/19/2013 patient states his BP is usually ok at home. hypertension Pertinent Findings Denies edema 02/19/2013 None hypertension Pertinent Findings Denies dizziness 02/19/2013 None hypertension Pertinent Findings Denies dyspnea 02/19/2013 None hypertension Onset of Symptom during adulthood 02/19/2013 None hypertension Triggers no known associated factors 02/19/2013 None hypertension Alleviating Factors medication 02/19/2013 None hypertension Quality chronic 10/16/2012 None hypertension Quality stable 10/16/2012 None hypertension Onset and Resolution ongoing 10/16/2012 None hypertension Blood Pressure Values patient checking blood pressure at home - did not bring in readings 10/16/2012 checking daily hypertension Alleviating Factors medication 10/16/2012 None hypertension Pertinent Findings Denies dizziness 10/16/2012 None hypertension Pertinent Findings Denies dyspnea 10/16/2012 None hypertension Pertinent Findings Denies orthostatic hypotension 10/16/2012 None hypertension Pertinent Findings Denies palpitations 10/16/2012 None hypertension Pertinent Findings Denies tachycardia 10/16/2012 None hypertension Severity mild 10/16/2012 None hypertension Quality chronic 06/19/2012 None hypertension Onset and Resolution ongoing 06/19/2012 None hypertension Alleviating Factors medication 06/19/2012 None anxiety Quality chronic 06/19/2012 None anxiety Alleviating Factors medication 06/19/2012 None hypertension Onset of Symptom during adulthood 06/19/2012 None hypertension Severity mild 06/19/2012 None hypertension Significant Family History heart disease 06/19/2012 None hypertension Significant Family History hypertension 06/19/2012 None hypertension Significant Medical Conditions cardiac disease 06/19/2012 None hypertension Blood Pressure Values patient checking blood pressure at home - did not bring in readings 06/19/2012 None hypertension Significant Medical Conditions cerebrovascular accident 06/19/2012 None hypertension Triggers stress 06/19/2012 None hypertension Exacerbating Factors change in dietary habits 06/19/2012 None hypertension Exacerbating Factors stress 06/19/2012 None hypertension Pertinent Findings anxiety 06/19/2012 None hypertension Pertinent Findings Denies confusion 06/19/2012 None hypertension Pertinent Findings decreased energy 06/19/2012 None hypertension Pertinent Findings Denies dizziness 06/19/2012 None hypertension Pertinent Findings Denies dyspnea 06/19/2012 None hypertension Pertinent Findings Denies edema 06/19/2012 None hypertension Pertinent Findings Denies failure to thrive 06/19/2012 None hyperlipidemia Onset and Resolution ongoing 06/19/2012 None hyperlipidemia Onset of Symptom during adulthood 06/19/2012 None hyperlipidemia Severity moderate 06/19/2012 None hyperlipidemia Significant Medications statin 06/19/2012 None hyperlipidemia Alleviating Factors medication 06/19/2012 None hyperlipidemia Pertinent Findings Denies edema 06/19/2012 None hyperlipidemia Pertinent Findings Denies nausea 06/19/2012 None hyperlipidemia Pertinent Findings Denies obesity 06/19/2012 None hyperlipidemia Pertinent Findings Denies weight loss 06/19/2012 None anxiety Triggers stress 06/19/2012 None hypertension Quality chronic 03/20/2012 states want to discuss lisinopril and dosage and dr salena andrade hypertension Onset and Resolution ongoing 03/20/2012 None hypertension Blood Pressure Values patient checking blood pressure at home - did not bring in readings 03/20/2012 None hypertension Blood Pressure Values Stage 1:SBP 140-159 mmHg / DBP 90-99 mmHg 03/20/2012 last 3 nights, had pressures in the 150-161/80-90 hypertension Severity mild 03/20/2012 None hypertension Significant Medical Conditions cardiac disease 03/20/2012 None hypertension Significant Medical Conditions cerebrovascular accident 03/20/2012 None hypertension Triggers stress 03/20/2012 None hypertension Alleviating Factors medication 03/20/2012 None hypertension Exacerbating Factors change in dietary habits 03/20/2012 None hypertension Exacerbating Factors stress 03/20/2012 None hypertension Pertinent Findings anxiety 03/20/2012 None hypertension Pertinent Findings Denies confusion 03/20/2012 None hypertension Pertinent Findings decreased energy 03/20/2012 None hypertension Pertinent Findings Denies dizziness 03/20/2012 None hypertension Pertinent Findings Denies dyspnea 03/20/2012 None hypertension Pertinent Findings Denies edema 03/20/2012 None hypertension Pertinent Findings Denies failure to thrive 03/20/2012 None hyperlipidemia Onset and Resolution ongoing 03/20/2012 None hyperlipidemia Onset of Symptom during adulthood 03/20/2012 None hyperlipidemia Severity moderate 03/20/2012 None hyperlipidemia Significant Medications statin 03/20/2012 None hyperlipidemia Alleviating Factors medication 03/20/2012 None hyperlipidemia Pertinent Findings Denies edema 03/20/2012 None hyperlipidemia Pertinent Findings Denies nausea 03/20/2012 None hyperlipidemia Pertinent Findings Denies obesity 03/20/2012 None hyperlipidemia Pertinent Findings Denies weight loss 03/20/2012 None hypertension Quality chronic 01/24/2012 states want to discuss lisinopril and dosage and dr salena andrade hypertension Onset and Resolution ongoing 01/24/2012 None hypertension Blood Pressure Values patient checking blood pressure at home - did not bring in readings 01/24/2012 None hypertension Severity mild 01/24/2012 None hypertension Significant Medical Conditions cardiac disease 01/24/2012 None hypertension Significant Medical Conditions cerebrovascular accident 01/24/2012 None hypertension Triggers stress 01/24/2012 None hypertension Alleviating Factors medication 01/24/2012 None hypertension Exacerbating Factors change in dietary habits 01/24/2012 None hypertension Exacerbating Factors stress 01/24/2012 None hypertension Pertinent Findings anxiety 01/24/2012 None hypertension Pertinent Findings Denies confusion 01/24/2012 None hypertension Pertinent Findings decreased energy 01/24/2012 None hypertension Pertinent Findings Denies dizziness 01/24/2012 None hypertension Pertinent Findings Denies dyspnea 01/24/2012 None hypertension Pertinent Findings Denies edema 01/24/2012 None hypertension Pertinent Findings Denies failure to thrive 01/24/2012 None hyperlipidemia Onset and Resolution ongoing 01/24/2012 None hyperlipidemia Onset of Symptom during adulthood 01/24/2012 None hyperlipidemia Severity moderate 01/24/2012 None hyperlipidemia Significant Medications statin 01/24/2012 None hyperlipidemia Alleviating Factors medication 01/24/2012 None hyperlipidemia Pertinent Findings Denies edema 01/24/2012 None hyperlipidemia Pertinent Findings Denies nausea 01/24/2012 None hyperlipidemia Pertinent Findings Denies obesity 01/24/2012 None hyperlipidemia Pertinent Findings Denies weight loss 01/24/2012 None hypertension Blood Pressure Values Stage 1:SBP 140-159 mmHg / DBP 90-99 mmHg 01/24/2012 last 3 nights, had pressures in the 150-161/80-90 hypertension Quality chronic 12/20/2011 None hypertension Onset and Resolution ongoing 12/20/2011 None hypertension Blood Pressure Values patient checking blood pressure at home - did not bring in readings 12/20/2011 None hyperlipidemia Onset and Resolution ongoing 12/20/2011 None hypertension Severity mild 12/20/2011 None hypertension Significant Medical Conditions cardiac disease 12/20/2011 None hypertension Significant Medical Conditions cerebrovascular accident 12/20/2011 None hypertension Triggers stress 12/20/2011 None hypertension Alleviating Factors medication 12/20/2011 None hypertension Exacerbating Factors stress 12/20/2011 None hypertension Exacerbating Factors change in dietary habits 12/20/2011 None hypertension Pertinent Findings anxiety 12/20/2011 None hypertension Pertinent Findings Denies confusion 12/20/2011 None hypertension Pertinent Findings Denies dizziness 12/20/2011 None hypertension Pertinent Findings decreased energy 12/20/2011 None hypertension Pertinent Findings Denies dyspnea 12/20/2011 None hypertension Pertinent Findings Denies edema 12/20/2011 None hypertension Pertinent Findings Denies failure to thrive 12/20/2011 None hyperlipidemia Onset of Symptom during adulthood 12/20/2011 None hyperlipidemia Severity moderate 12/20/2011 None hyperlipidemia Significant Medications statin 12/20/2011 None hyperlipidemia Alleviating Factors medication 12/20/2011 None hyperlipidemia Pertinent Findings Denies nausea 12/20/2011 None hyperlipidemia Pertinent Findings Denies obesity 12/20/2011 None hyperlipidemia Pertinent Findings Denies edema 12/20/2011 None hyperlipidemia Pertinent Findings Denies weight loss 12/20/2011 None Post-op wound Procedure Performed heart cath last week 12/09/2011 States he is having bruising at the site of the heart cath. Last night, he noticed a lump at the site. abnormal bleeding and bruising Location in a surgical wound 12/09/2011 None abnormal bleeding and bruising Quality acute 12/09/2011 None abnormal bleeding and bruising Onset and Resolution ongoing 12/09/2011 None abnormal bleeding and bruising Onset of Symptom 1 weeks ago 12/09/2011 None Post-op wound General Recovery well 12/09/2011 None Post-op wound Significant Medical Conditions hypertension 12/09/2011 None abnormal bleeding and bruising Severity moderate 12/09/2011 None abnormal bleeding and bruising Pertinent Findings Denies weakness 12/09/2011 None hypertension Quality chronic 08/25/2011 None hypertension Onset and Resolution ongoing 08/25/2011 None hypertension Blood Pressure Values patient checking blood pressure at home - did not bring in readings 08/25/2011 None hypertension Severity mild 08/25/2011 None hypertension Triggers stress 08/25/2011 None hypertension Alleviating Factors medication 08/25/2011 None hypertension Exacerbating Factors change in dietary habits 08/25/2011 None hypertension Pertinent Findings Denies abdominal mass 08/25/2011 None hypertension Pertinent Findings Denies anxiety 08/25/2011 None hypertension Pertinent Findings Denies confusion 08/25/2011 None hypertension Pertinent Findings Denies dizziness 08/25/2011 None hypertension Pertinent Findings Denies lethargy 08/25/2011 None hypertension Pertinent Findings Denies muscle weakness 08/25/2011 None hypertension Significant Medical Conditions cardiac disease 08/25/2011 None hypertension Quality chronic 06/23/2011 None hypertension Onset and Resolution ongoing 06/23/2011 None hypertension Blood Pressure Values patient checking blood pressure at home - did not bring in readings 06/23/2011 None hypertension Severity mild 06/23/2011 None hypertension Triggers stress 06/23/2011 None hypertension Alleviating Factors medication 06/23/2011 None hypertension Exacerbating Factors change in dietary habits 06/23/2011 None hypertension Pertinent Findings Denies abdominal mass 06/23/2011 None hypertension Pertinent Findings Denies anxiety 06/23/2011 None hypertension Pertinent Findings Denies confusion 06/23/2011 None hypertension Pertinent Findings Denies dizziness 06/23/2011 None hypertension Pertinent Findings Denies lethargy 06/23/2011 None hypertension Pertinent Findings Denies muscle weakness 06/23/2011 None blood pressure followup Quality chronic 04/19/2011 None blood pressure followup Onset and Resolution ongoing 04/19/2011 None blood pressure followup Onset of Symptom during adulthood 04/19/2011 None blood pressure followup Severity mild 04/19/2011 None blood pressure followup Exacerbating Factors stress 04/19/2011 None blood pressure followup Alleviating Factors medication 04/19/2011 None blood pressure followup Quality chronic 03/23/2011 None blood pressure followup Onset and Resolution ongoing 03/23/2011 None blood pressure followup Blood Pressure Values "white coat" (home SBP<129 / DBP<84) 03/23/2011 None blood pressure followup Severity mild 03/23/2011 -Dr. Merlos started him on lisinopril. hypertension Quality chronic 03/08/2011 Dr Merlos increased amlodipine to 10mg daily hypertension Onset and Resolution ongoing 03/08/2011 None hypertension Onset of Symptom during adulthood 03/08/2011 None hypertension Severity mild 03/08/2011 None hypertension Blood Pressure Values Stage 1:SBP 140-159 mmHg / DBP 90-99 mmHg 03/08/2011 None hypertension Triggers stress 03/08/2011 None hypertension Alleviating Factors medication 03/08/2011 None hypertension Exacerbating Factors stress 03/08/2011 None hypertension Quality chronic 03/01/2011 None hypertension Onset and Resolution ongoing 03/01/2011 None hypertension Alleviating Factors medication 03/01/2011 Dr Merlos added amlodipine 5mg hypertension Onset of Symptom during adulthood 03/01/2011 None hypertension Blood Pressure Values not checking blood pressure at home 03/01/2011 None laceration of the finger Limitation on Activities does not limit activities 03/01/2011 None laceration of the finger Location on the index finger 03/01/2011 None laceration of the finger Onset of Symptom 2 days ago 03/01/2011 None laceration of the finger Quality linear 03/01/2011 None laceration of the finger Severity mild 03/01/2011 None laceration of the finger Significant Medical Conditions prior self-inflicted trauma 03/01/2011 None abnormal bleeding and bruising Onset and Resolution ongoing 02/01/2011 cont to have bruising lt antecubial space testicular pain Location on both testicles 02/01/2011 cont to have swelling memory loss Quality worsening 02/01/2011 per memory loss Onset of Symptom during adulthood 02/01/2011 None abnormal bleeding and bruising Onset of Symptom 1 weeks ago 02/01/2011 None abnormal bleeding and bruising Intervention Required no medical therapy 02/01/2011 None abnormal bleeding and bruising Severity mild 02/01/2011 None abnormal bleeding and bruising Alleviating Factors cold compress 02/01/2011 None abnormal bleeding and bruising Alleviating Factors rest 02/01/2011 None testicular pain Location on both testicles 01/27/2011 None testicular pain Quality stabbing 01/27/2011 None testicular pain Quality sharp 01/27/2011 None testicular pain Onset and Resolution sudden in onset 01/27/2011 None testicular pain Onset and Resolution improved during the day 01/27/2011 None testicular pain Onset of Symptom 7 hours ago 01/27/2011 None testicular pain Length of Episodes 15 minutes 01/27/2011 None testicular pain Pertinent Findings Denies vomiting 01/27/2011 None testicular pain Pertinent Findings Denies penile discharge 01/27/2011 None skin lesion Triggers recent IV. 01/26/2011 Patient was hospitalized last week. States he had an IV in the left AC. Dismissed on Tuesday. First noticed hematoma on . Went to ER on Tuesday evening. States it is improved but was told to follow up in 2 days at the office. skin lesion Location left AC 01/26/2011 brusing, hematoma. skin lesion Onset of Symptom 6 days ago. 01/26/2011 None urinary retention/hesitancy Quality straining 01/15/2011 None urinary retention/hesitancy Quality hesitancy 01/15/2011 None urinary retention/hesitancy Onset and Resolution sudden in onset 01/15/2011 started last night urinary retention/hesitancy Onset of Symptom 1 days ago 01/15/2011 None urinary retention/hesitancy Frequency of Episodes hourly 01/15/2011 states he was up throughout the night trying to urinate urinary retention/hesitancy Timing of Episodes at night. 01/15/2011 Waking up every hours to urinate. gas and bloating Location diffusely 01/15/2011 None gas and bloating Quality acute 01/15/2011 None gas and bloating Onset of Symptom 2 days ago 01/15/2011 None gas and bloating Limitation on Activities does not limit activities 01/15/2011 None gas and bloating Severity moderate 01/15/2011 None gas and bloating Frequency of Episodes daily 01/15/2011 None gas and bloating Timing of Episodes in the evening 01/15/2011 None abdominal pain Quality chronic 01/06/2011 None abdominal pain Onset of Symptom 3 months ago 01/06/2011 None abdominal pain Triggers no known associated factors 01/06/2011 None abdominal pain Location in the LLQ 01/06/2011 however, pt states that it is not pain, but discomfort diarrhea Onset and Resolution sudden in onset 01/06/2011 October 27-November 08; also December 15- abdominal pain Radiating the inguinal area 01/06/2011 None abdominal pain Limitation on Activities does not limit activities 01/06/2011 None nasal allergies Location in both nares 01/06/2011 None nasal allergies Onset and Resolution ongoing 01/06/2011 has gotten allergy injections in the past - will be retested by Dr. Henley otitis media Onset and Resolution ongoing 01/06/[address] Dr[address] Henley who thinks he may have an inner ear infection postnasal drip Quality clear 01/06/2011 None postnasal drip Frequency of Episodes monthly 01/06/2011 occasionally diarrhea Quality loose 01/06/2011 bowel movements have been normal since last tuesday nausea Severity mild 01/06/2011 was a transitory nausea diarrhea Quality acute 01/06/2011 None diarrhea Onset and Resolution ongoing 01/06/2011 None diarrhea Onset of Symptom 3 months ago 01/06/2011 None diarrhea Limitation on Activities moderately limits activities 01/06/2011 None diarrhea Frequency of Episodes 4-6 stools per day 01/06/2011 None diarrhea Frequency of Episodes increasing 01/06/2011 None diarrhea Timing of Episodes no specific time 01/06/2011 None diarrhea Triggers no known associated factors 01/06/2011 None diarrhea Pertinent Findings lethargy 01/06/2011 None Advance Directives No Advance Directive data Encounters Encounter Performer Location Codes Date ( 93054 EST. PATIENT, LEVEL III Diagnosis: Essential (primary) hypertension[ICD10: I10] Ale Carlos MD, [facility] CPT-4: 81775 03/21/2017 35323 EST. PATIENT, LEVEL III Diagnosis: Other allergic rhinitis[ICD10: J30.89] Nelly Carlos MD, [facility] CPT-4: 54765 03/08/2017 ([id number]) 43160 EST. PATIENT, LEVEL III Diagnosis: Encounter for immunization[ICD10: Z23] Diagnosis: Other hypotension[ICD10: I95.89] Ale Carlos MD, [facility] CPT-4: 80325 01/25/2017 ([id number]) 80779 EST. PATIENT, LEVEL III Diagnosis: Essential (primary) hypertension[ICD10: I10] Diagnosis: Acute recurrent maxillary sinusitis[ICD10: J01.01] Ale Carlos MD, [facility] CPT-4: 48116 12/20/2016 ([id number]) 97993 EST. PATIENT, LEVEL III Diagnosis: Acute recurrent ethmoidal sinusitis[ICD10: J01.21] Ale Carlos MD, [facility] CPT-4: 88849 12/01/2016 ([id number]) 43025 EST. PATIENT, LEVEL III Diagnosis: Bronchitis, not specified as acute or chronic[ICD10: J40] Diagnosis: Cough[ICD10: R05] Ale Carlos MD, [facility] CPT-4: 69268 11/25/2016 ([id number]) 05863 EST. PATIENT, LEVEL III Diagnosis: Cough[ICD10: R05] Diagnosis: Bronchitis, not specified as acute or chronic[ICD10: J40] Diagnosis: Candidal esophagitis[ICD10: B37.81] Ale Carlos MD, [facility] CPT-4: 63388 11/18/2016 ([id number]) 88570 EST. PATIENT, LEVEL IV Diagnosis: Essential (primary) hypertension[ICD10: I10] Diagnosis: Mild cognitive impairment, so stated[ICD10: G31.84] Ale Carlos MD, [facility] CPT-4: 79812 08/23/2016 ([id number]) 62072 EST. PATIENT, LEVEL III Diagnosis: Essential (primary) hypertension[ICD10: I10] Ale Carlos MD, [facility] CPT-4: 50957 04/26/2016 ([id number]) Miscellaneous no charge Diagnosis: Olecranon bursitis, right elbow[ICD10: M70.21] Nelly Carlos MD, [facility] CPT-4: 60540 02/09/2016 ([id number]) 97779 EST. PATIENT, LEVEL III Diagnosis: Olecranon bursitis, right elbow[ICD10: M70.21] Nelly Carlos MD, [facility] CPT-4: 30534 02/03/2016 ([id number]) 89034 EST. PATIENT, LEVEL III Diagnosis: Generalized abdominal tenderness[ICD10: R10.817] Ale Carlos MD, [facility] CPT-4: 78184 01/26/2016 02344 EST. PATIENT, LEVEL IV Diagnosis: Other allergic rhinitis[ICD10: J30.89] Ruchi Carlos MD, [facility] CPT-4: 02257 01/21/2016 ([id number]) 22260 EST. PATIENT, LEVEL IV Diagnosis: Essential (primary) hypertension[ICD10: I10] Diagnosis: Hypo-osmolality and hyponatremia[ICD10: E87.1] Ale Carlos MD, [facility] CPT-4: 41815 12/29/2015 ([id number]) 44486 EST. PATIENT, LEVEL IV Diagnosis: Essential (primary) hypertension[ICD10: I10] Diagnosis: Mild cognitive impairment, so stated[ICD10: G31.84] Ale Carlos MD, [facility] CPT-4: 48739 09/02/2015 ([id number]) 70109 EST. PATIENT, LEVEL IV Diagnosis: Mixed hyperlipidemia[ICD10: E78.2] Diagnosis: Generalized anxiety disorder[ICD10: F41.1] Diagnosis: Mild cognitive impairment, so stated[ICD10: G31.84] Diagnosis: Essential (primary) hypertension[ICD10: I10] Diagnosis: Encounter for immunization[ICD10: Z23] Ale Carlos MD, [facility] CPT-4: 37937 05/06/2015 ([id number]) 95322 EST. 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 PATIENT, LEVEL IV Diagnosis: ESSENTIAL HYPERTENSION[ICD9: 401.9] Diagnosis: GENERALIZED ANXIETY DISEASE[ICD9: 300.02] Diagnosis: MILD COGNITIVE IMPAIREMT[ICD9: 331.83] Diagnosis: IRRITABLE COLON[ICD9: 564.1] Ale Carlos MD, [facility] CPT- 4: 90718 12/04/2014 ([id number]) 06334 EST. PATIENT, LEVEL IV Diagnosis: Abdominal pain[ICD9: 789.00] Diagnosis: GENERALIZED ANXIETY DISEASE[ICD9: 300.02] Diagnosis: Hyponatremia[ICD9: 276.1] Diagnosis: ESSENTIAL HYPERTENSION[ICD9: 401.9] Nelly Carlos MD, [facility] CPT-4: 10345 09/24/2014 ([id number]) 67922 EST. PATIENT, LEVEL IV Diagnosis: ESSENTIAL HYPERTENSION[ICD9: 401.9] Diagnosis: Osteoarthritis[ICD9: 715.90] Diagnosis: Mild cognitive impairment with memory loss[ICD9: 331.83] Ale Carlos MD, [facility] CPT-4: 74284 09/09/2014 ([id number]) 59589 EST. PATIENT, LEVEL III Diagnosis: GENERALIZED ANXIETY DISEASE[ICD9: 300.02] Diagnosis: Depression[ICD9: 311] Ale Carlos MD, [facility] CPT-4: 49271 07/26/2014 ([id number]) 33015 EST. PATIENT, LEVEL IV Diagnosis: ESSENTIAL HYPERTENSION[ICD9: 401.9] Diagnosis: GENERALIZED ANXIETY DISEASE[ICD9: 300.02] Diagnosis: MILD COGNITIVE IMPAIREMT[ICD9: 331.83] Ale Carlos MD, [facility] CPT-4: 94496 07/10/2014 ([id number]) 79140 EST. PATIENT, LEVEL IV Diagnosis: Dizziness[ICD9: 780.4] Diagnosis: GENERALIZED ANXIETY DISEASE[ICD9: 300.02] Diagnosis: Depression[ICD9: 311] Diagnosis: ESSENTIAL HYPERTENSION[ICD9: 401.9] Diagnosis: Urinary frequency[ICD9: 788.41] Ale Carlos MD, [facility] CPT- 4: 51103 06/06/2014 ([id number]) 19873 EST. PATIENT, LEVEL IV Diagnosis: ESSENTIAL HYPERTENSION[ICD9: 401.9] Diagnosis: GENERALIZED ANXIETY DISEASE[ICD9: 300.02] Diagnosis: Mild cognitive impairment with memory loss[ICD9: 331.83] Ale Carlos MD, [facility] CPT-4: 38406 05/29/2014 ([id number]) 33931 EST. PATIENT, LEVEL IV Diagnosis: Pneumonia[ICD9: 486] Diagnosis: COUGH[ICD9: 786.2] Diagnosis: Hyponatremia[ICD9: 276.1] Diagnosis: ALLERGIC RHINITIS[ICD9: 477.9] Ale Carlos MD, [facility] CPT- 4: 35785 05/20/2014 ([id number]) 26651 EST. PATIENT, LEVEL III Diagnosis: ESSENTIAL HYPERTENSION[ICD9: 401.9] Diagnosis: Cough[ICD9: 786.2] Ale Carlos MD, [facility] CPT-4: 86224 03/25/2014 ([id number]) 01569 EST. PATIENT, LEVEL III Diagnosis: COUGH[ICD9: 786.2] Diagnosis: ALLERGIC RHINITIS[ICD9: 477.9] Nelly Carlos MD, [facility] CPT-4: 38011 02/08/2014 ([id number]) 01527 EST. PATIENT, LEVEL III Diagnosis: ESSENTIAL HYPERTENSION[ICD9: 401.9] Diagnosis: Nasal congestion[ICD9: 478.19] Ale Carlos MD, [facility] CPT- 4: 79180 12/24/2013 ([id number]) 34535 EST. PATIENT, LEVEL III Diagnosis: Seasonal allergies[ICD9: 477.9] Diagnosis: Nasal congestion[ICD9: 478.19] Diagnosis: ABNORMAL LOSS OF WEIGHT[ICD9: 783.21] Ale Carlos MD [facility] CPT-4: 59688 11/20/2013 ([id number]) 02335 EST. PATIENT, LEVEL III Diagnosis: ABNORMAL LOSS OF WEIGHT[ICD9: 783.21] Diagnosis: MALAISE AND FATIGUE[ICD9: 780.79] Diagnosis: Hyponatremia[ICD9: 276.1] Nelly Carlos MD, [facility] CPT-4: 45442 10/30/2013 ([id number]) 85357 EST. PATIENT, LEVEL III Diagnosis: Acute maxillary sinusitis[ICD9: 461.0] Diagnosis: COUGH[ICD9: 786.2] Ale Carlos MD, [facility] CPT-4: 53183 10/08/2013 ([id number]) 10420 EST. PATIENT, LEVEL IV Diagnosis: ESSENTIAL HYPERTENSION[SNOMED: 61465273] Diagnosis: GENERALIZED ANXIETY DISEASE[ICD9: 300.02] Diagnosis: OSTEOARTH NOS-UNSPEC[ICD9: 715.90] Diagnosis: Coronary artery disease[ICD9: 414.00] Ale Carlos MD, [facility] CPT-4: 70611 06/18/2013 ([id number]) 24630 EST. PATIENT, LEVEL III Diagnosis: ESSENTIAL HYPERTENSION[SNOMED: 31547339] Ale Carlos MD, [facility] CPT-4: 94682 04/04/2013 ([id number]) 08177 EST. PATIENT, LEVEL IV Diagnosis: ESSENTIAL HYPERTENSION[SNOMED: 58302883] Diagnosis: Leukopenia[ICD9: 288.50] Diagnosis: Encounter for long-term (current) use of other medications[ICD9: V58.69] Ale Carlos MD [facility] CPT-4: 40177 2012 ([id number]) 92815 EST. PATIENT, LEVEL IV Diagnosis: ESSENTIAL HYPERTENSION[SNOMED: 48669075] Diagnosis: MILD COGNITIVE IMPAIREMT[ICD9: 331.83] Ale Carlos MD, [facility] CPT-4: 94426 10/16/2012 ([id number]) 30214 EST. PATIENT, LEVEL IV Diagnosis: ESSENTIAL HYPERTENSION[SNOMED: 22277559] Diagnosis: GENERALIZED ANXIETY DISEASE[ICD9: 300.02] Diagnosis: IRRITABLE COLON[ICD9: 564.1] Ale Carlos MD [facility] CPT- 4: 31040 03/20/2012 16322 EST. PATIENT, LEVEL IV Diagnosis: ESSENTIAL HYPERTENSION[SNOMED: 14455521] Diagnosis: Osteoarthritis[ICD9: 715.90] Diagnosis: HYPERLIPIDEMIA[ICD9: 272.4] Ale Carlos MD, [facility] CPT- 4: 46676 01/24/2012 39407 EST. PATIENT, LEVEL IV Diagnosis: ESSENTIAL HYPERTENSION[SNOMED: 74066914] Diagnosis: BPH W URINARY OBS/LUTS[ICD9: 600.01] Ale Carlos MD, [facility] CPT-4: 37636 12/20/2011 ([id number]) 06293 EST. PATIENT, LEVEL III Diagnosis: Lump in the groin[ICD9: 789.30] Ale Carlos MD [facility] CPT- 4: 90065 12/09/2011 ([id number]) 13046 EST. PATIENT, LEVEL IV Diagnosis: ESSENTIAL HYPERTENSION[SNOMED: 93651946] Diagnosis: Mild cognitive impairment[ICD9: 331.83] Ale Carlos MD [facility] CPT-4: 94006 08/25/2011 ([id number]) 33673 EST. PATIENT, LEVEL IV Diagnosis: ESSENTIAL HYPERTENSION[SNOMED: 99028875] Diagnosis: GENERALIZED ANXIETY DISEASE[ICD9: 300.02] Diagnosis: MILD COGNITIVE IMPAIREMT[ICD9: 331.83] Diagnosis: IRRITABLE COLON[ICD9: 564.1] Ale Carlos MD, [facility] CPT- 4: 35309 06/23/2011 ([id number]) 72256 EST. 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 PATIENT, LEVEL I Diagnosis: ESSENTIAL HYPERTENSION[SNOMED: 85291761] Ale Carlos MD, [facility] CPT-4: 41853 03/23/2011 27640 EST. PATIENT, LEVEL III Diagnosis: ESSENTIAL HYPERTENSION[SNOMED: 64089868] Diagnosis: Laceration of finger, index[ICD9: 883.0] Ale Carlos MD, [facility] CPT-4: 87966 03/08/2011 78849 EST. PATIENT, LEVEL III Diagnosis: ESSENTIAL HYPERTENSION[SNOMED: 14618203] Diagnosis: Irritable bowel syndrome (IBS)[ICD9: 564.1] Ale Carlos MD, [facility] CPT-4: 39102 03/01/2011 28065 EST. PATIENT, LEVEL IV Diagnosis: Mild cognitive impairment with memory loss[ICD9: 331.83] Diagnosis: GENERALIZED ANXIETY DISEASE[ICD9: 300.02] Diagnosis: Bruising[ICD9: 924.9] Diagnosis: HYDROCELE[ICD9: 603.9] Ale Carlos MD, [facility] CPT-4: 61673 02/01/2011 81675 EST. PATIENT, LEVEL III Diagnosis: Testicular pain[ICD9: 608.9] Diagnosis: GENERALIZED ANXIETY DISEASE[ICD9: 300.02] Nelly Carlos MD, [facility] CPT-4: 06623 01/27/2011 77750 EST. PATIENT, LEVEL III Diagnosis: Arm bruise[ICD9: 923.9] Nelly Carlos MD, [facility] CPT-4: 69539 01/26/2011 OFFICE VISIT, NEW - LEVEL 4 Diagnosis: DIARRHEA[ICD9: 787.91] Diagnosis: Elevated liver function tests[ICD9: 790.6] Diagnosis: Abdominal discomfort[ICD9: 789.00] Ale Carlos MD, [facility] CPT-4: 05117 01/06/2011 Plan of Care Planned Activity Notes Codes Status Date Visit Plan: Hypertension - well controlled - continue with current medications, continue with no added salt diet. Pt has been encouraged to exercise daily. The pt has been advised to call the office if there are any acute concerns about change in blood pressure readings at home. 03/21/2017 Appointment: Ale Carlos WPtel: [id number] (30 min) Complex 03/21/2017 Patient Education: Patient Medication Summary Completed 03/21/2017 Visit Plan: Allergies - recommended pt to use allergy medication as prescribed. Pt has been counseled as to the appropriate use of the medication. Pt to call if allergy symptoms are not controlled with the medication. If using nasal spray, instructions as follows: Nasal spray- use twice daily, one spray per nostril twice daily, after 30 minutes, rinse out nose with saline spray.. Use opposite hand per nostril to spray in the nasal steroid allergy spray. 03/08/2017 Appointment: Nelly Keen WPtel: [facility] [place] [address] (30 min) Complex 03/08/2017 Patient Education: Patient Medication Summary Completed 03/08/2017 Visit Plan: Hypotension - see notes as follows: Dr. Carlos talked to Dr. Merlos today - He requested that we have you STOP the AMLODIPINE (brand name is NORVASC) - His office will call you to set up an appointment for NEXT WEEK. Keep track of your blood pressures at home, call the office if they are above 160 for the top number or consistently above 110 for the bottom number flu shot 01/25/2017 Appointment: Ale Carlos WPtel: [facility] (30 min) Complex 01/25/2017 Patient Education: Patient Medication Summary Completed 01/25/2017 Visit Plan: Hypertension - well controlled - continue with current medications, continue with no added salt diet. Pt has been encouraged to exercise daily. The pt has been advised to call the office if there are any acute concerns about change in blood pressure readings at home. Sinusitis/cough - improving - continue with supportive care, pt to call if symptoms are not improving. 12/20/2016 Appointment: Ale Carlos WPtel: [facility] [place] (30 min) Complex 12/20/2016 Patient Education: Patient Medication Summary Completed 12/20/2016 Patient Education: Hypertension Completed 12/20/2016 Appointment: Ruchi Agee WPtel: [phone] [facility] [place] [address] - Annual Wellness Visit 12/03/2016 Visit Plan: Ethmoid sinusitis - check sinus xray - if positive will call out rx for antibiotic nasal spray 12/01/2016 Patient Education: Patient Medication Summary Completed 12/01/2016 Visit Plan: Bronchitis - acute but improving - case of bronchitis - Pt has been given antibiotics, breathing treatments as appropriate , and pt has been instructed to call if symptoms are not improved, or if symptoms acutely worsen. 11/25/2016 Appointment: Ale Carlos WPtel: [facility] (15 min) Moderate 11/25/2016 Patient Education: Patient Medication Summary Completed 11/25/2016 Visit Plan: Bronchitis - acute case of bronchitis identified. Pt has been given antibiotics, breathing treatments as appropriate, and pt has been instructed to call if symptoms are not improved, or if symptoms acutely worsen. stop the cefuroxime - start on azithromycin - the first day is 500mg, then it is 250mg daily x 4 more days Thrush - i will also call out a script for nystatin swish and swallow - you have thrush. 11/18/2016 Appointment: Ale Carlos WPtel: [facility] (15 min) Moderate 11/18/2016 Patient Education: Patient Medication Summary Completed 11/18/2016 Visit Plan: Hypertension - well controlled - continue with current medications, continue with no added salt diet. Pt has been encouraged to exercise daily. The pt has been advised to call the office if there are any acute concerns about change in blood pressure readings at home. Memory loss - stable - continue with aricept and namenda. [place] [facility] 08/23/2016 Appointment: Ale Carlos WPtel: [facility] (30 min) Complex 08/23/2016 Patient Education: Patient Medication Summary Completed 08/23/2016 Patient Education: Hypertension Completed 08/23/2016 Visit Plan: Hypertension - well controlled - continue with current medications, continue with no added salt diet. Pt has been encouraged to exercise daily. The pt has been advised to call the office if there are any acute concerns about change in blood pressure readings at home. 04/26/2016 Appointment: [facility]el[phone] ([facility] Complex 04/26/2016 Patient Education: Patient Medication Summary Completed 04/26/2016 Visit Plan: Joint effusion - recommended drainage and referral to orthopedic surgeon for surgical debridement of bursa 02/17/2016 Appointment: Ale Carlos WPtel: [facility] ([facility] 02/17/2016 Patient Education: Patient Medication Summary Completed 02/17/2016 Visit Plan: Bursitis-right elbow-drained today in the office-increase anti inflammatories for the next 5 days as directed-call if symptoms do not resolve, swelling returns or new symptoms develop-patient verbalized understanding of plan. 02/09/2016 Appointment: [phone] [place] (30 min) Complex 02/09/2016 Patient Education: Patient Medication Summary Completed 02/09/2016 Patient Education: Patient Medication Summary Completed 02/05/2016 Care Plan: Metabolic Pending 02/05/2016 Visit Plan: Bursitis-right elbow-drained today in the office-increase anti inflammatories for the next 5 days as directed-call if symptoms do not resolve, swelling returns or new symptoms develop-patient verbalized understanding of plan. 02/03/2016 Appointment: [facility]el[phone] [place] (30 min) Complex 02/03/2016 Patient Education: Patient Medication Summary Completed 02/03/2016 Patient Education: Patient Medication Summary Completed 01/30/2016 Care Plan: Metabolic Due on Pending 01/30/2016 Visit Plan: Abdominal pain - nausea - Pt to have IV fluids at hospital 01/26/2016 Appointment: Ale Carlos WPtel: [phone] [facility] (30 min) Complex 01/26/2016 Patient Education: Patient Medication Summary Completed 01/26/2016 Visit Plan: Allergies - chronic - recommended pt to use allergy medication as prescribed. Pt has been counseled as to the appropriate use of the medication. Pt to call if allergy symptoms are not controlled with the medication. If using nasal spray, instructions as follows: Nasal spray- use twice daily, one spray per nostril twice daily, after 30 minutes, rinse out nose with saline spray.. Use opposite hand per nostril to spray in the nasal steroid allergy spray. 01/21/2016 Appointment: [facility] Keen [facility]el[id number] (30 min) Complex 01/21/2016 Patient Education: Patient Medication Summary Completed 01/21/2016 Visit Plan: Hypertension - well controlled - continue with current medications except for stopping losartan, continue with no added salt diet. Pt has been encouraged to exercise daily. The pt has been advised to call the office if there are any acute concerns about change in blood pressure readings at home. Hyponatremia - decrease dose of sodium at lunch as it seems to be making Dr. Dash nauseated. 12/29/2015 Patient Education: Patient Medication Summary Completed 12/29/2015 Visit Plan: Hypertension - well controlled - continue with current medications, continue with no added salt diet. Pt has been encouraged to exercise daily. The pt has been advised to call the office if there are any acute concerns about change in blood pressure readings at home. Alzheimer's Dementia - Pt with slowly progressive pattern. I have discussed with pt and family the prognosis of this disease state and the need for the family to anticipate further decline with behavior changes. Continue with current plan of treatment. 09/02/2015 Appointment: Ale Carlos WPtel: [phone] [facility] (15 min) Moderate 09/02/2015 Patient Education: Patient Medication Summary Completed 09/02/2015 Patient Education: Hypertension Completed 09/02/2015 Visit Plan: Hypertension - well controlled - continue with current medications, continue with no added salt diet. Pt has been encouraged to exercise daily. The pt has been advised to call the office if there are any acute concerns about change in blood pressure readings at home. Hyperlipidemia - pt has been counseled about appropriate diet, exercise, and need for low fat food choices. I have discussed the need for the patient to take medications as prescribed. If the patient has negative side effects from the medication, they are to CALL the office and not abruptly discontinue the medication without discussion with a practitioner in the office. We will check labs in 3-6 months for follow up on the patient's chronic medical problem and to assure normal liver response to medications. Mild cognitive impairment - continue with aricept , namenda. - symptoms stable. pt due for labs to be done for cholesterol check, renal function, and thyroid and cbc prevnar 13 injection today 05/06/2015 Appointment: Ale Carlos WPtel: [phone] [facility] (15 min) Moderate 05/06/2015 Patient Education: Patient Medication Summary Completed 05/06/2015 Patient Education: Hypertension Completed 05/06/2015 Care Plan: COMPLETE CBC AUTOMATED LOINC : 20598-8 Ordered 05/06/2015 Visit Plan: Hypertension - well controlled - continue with current medications, continue with no added salt diet. Pt has been encouraged to exercise daily. The pt has been advised to call the office if there are any acute concerns about change in blood pressure readings at home. Esophageal Reflux - the patient has been counseled against excessive intake of caffeine, spicy foods, peppermint, and cinnamon - all of which can exacerbate esophageal reflux. The patient is to take medications as prescribed and call the office if the symptoms are not improving. Chronic Depression and anxiety - the pt has symptoms of chronic anxiety and depression that have been fairly well controlled since the last office visit. The pt has expected periods of exacerbation with abatement of the symptoms with change in situational exposure. No change in current medications. 03/05/2015 Appointment: Ale Carlos WPtel: [phone] [facility] ([facility] min) Complex 03/05/2015 Patient Education: Patient Medication Summary Completed 03/05/2015 Patient Education: Hypertension Completed 03/05/2015 Appointment: Nurse Visit 02/19/2015 Patient Education: Patient Medication Summary Completed 02/19/2015 Visit Plan: Hypertension - well controlled - continue with current medications, continue with no added salt diet. Pt has been encouraged to exercise daily. The pt has been advised to call the office if there are any acute concerns about change in blood pressure readings at home. Esophageal Reflux - the patient has been counseled against excessive intake of caffeine, spicy foods, peppermint, and cinnamon - all of which can exacerbate esophageal reflux. The patient is to take medications as prescribed and call the office if the symptoms are not improving. Anxiety -has improved. 12/04/2014 Appointment: Ale Carlos WPtel: [facility] Follow up 12/04/2014 Patient Education: Patient Medication Summary Completed 12/04/2014 Patient Education: Hypertension Completed 12/04/2014 Visit Plan: Abdominal pain-patient reports worsening symptoms-schedule CT abdomen/pelvis to evaluate for acute abnormality Low sodium -increase gatorade to twice HTN-well controlled-no change in treatment 09/24/2014 Visit Plan: Abdominal pain-patient reports worsening symptoms-schedule CT abdomen/pelvis to evaluate for acute abnormality Low sodium -increase gatorade to twice HTN-well controlled-no change in treatment 09/24/2014 Appointment: Sick 09/24/2014 Patient Education: Patient Medication Summary Completed 09/24/2014 Patient Education: Hypertension Completed 09/24/2014 Care Plan: CT ABD & PELV 1/> [facility] : 97630-7 Ordered 09/24/2014 Visit Plan: Hypertension - well controlled - continue with current medications, continue with no added salt diet. Pt has been encouraged to exercise daily. The pt has been advised to call the office if there are any acute concerns about change in blood pressure readings at home. Arthritis- occasionally uncontrolled symptoms- recommend pt to take antiinflammatory as directed for pain control. Use tylenol for break through pain symptoms. Memory loss - pt has stability of his memory on the namenda and aricept. CAD - on plavix - continue with treatment per Dr. Merlos. 09/09/2014 Patient Education: Patient Medication Summary Completed 09/09/2014 Patient Education: Hypertension Completed 09/09/2014 Visit Plan: Chronic Depression and anxiety-improved over the past several weeks- the pt has symptoms of chronic anxiety and depression that have been fairly well controlled since the last office visit. The pt has expected periods of exacerbation with abatement of the symptoms with change in situational exposure. No change in current medications. INSTRUCTED PATIENT THAT HE SHOULD NOT BE DRIVING TO [place] 07/26/2014 Appointment: Sick 07/26/2014 Appointment: Sick 07/26/2014 Patient Education: Patient Medication Summary Completed 07/26/2014 Visit Plan: Hypertension - well controlled - continue with current medications, continue with no added salt diet. Pt has been encouraged to exercise daily. The pt has been advised to call the office if there are any acute concerns about change in blood pressure readings at home. Chronic Depression and anxiety - the pt has symptoms of chronic anxiety and depression that have been fairly well controlled since the last office visit. The pt has expected periods of exacerbation with abatement of the symptoms with change in situational exposure. No change in current medications. MCI - symptoms improving with his new medication - pt did not bring his new medications with him to clinic and his discharge summary from the Behavioral unit did not include a medication list. 07/10/2014 Appointment: Ale Carlos WPtel: [address] [place], [place] [phone] Follow up 07/10/2014 Patient Education: Patient Medication Summary Completed 07/10/2014 Patient Education: Hypertension Completed 07/10/2014 Appointment: Ale Carlos WPtel: [facility]5 [facility] Follow up 06/20/2014 Appointment: Ale Carlos WPtel: [address] [place], [place] [phone] Follow up 06/10/2014 Visit Plan: Anxiety and depression - uncontrolled - Pt has been counseled about the diagnosis of depression and anxiety, the potential causes, and risks associated with the diagnosis. The pt denies suicidal ideation , or plans. The patient has been counseled about treatment options, and understands the risks associated with treatment of depression, as well as the risks associated with NOT treating the depression. I believe the pt will benefit from medical intervention and an antidepressant has been appropriately prescribed for this patient. Hypertension - well controlled - continue with current medications, continue with no added salt diet. Pt has been encouraged to exercise daily. The pt has been advised to call the office if there are any acute concerns about change in blood pressure readings at home. Urinary nhwszokdy-MRN-brqjkc flomax to bedtime Dizziness-stop hydrocodone and ativan 06/06/2014 Appointment: Follow up 06/06/2014 Patient Education: Patient Medication Summary Completed 06/06/2014 Patient Education: Hypertension Completed 06/06/2014 Visit Plan: Hypertension - too well controlled - decrease losartan to 25mg daily. DECREASE LOSARTAN TO 25MG - TAKE 1/2 OF A TABLET OF THE 50MG PILL DAILY CHECK BLOOD PRESSURE AT HOME AND BRING BY THE OFFICE ON TUESDAY MORNING Dementia with anxiety - INCREASE ARICEPT (DONEPEZIL) TO 5MG TAKEN TWICE A DAY. Fatigue/Malaise - HOLD THE SIMVASTATIN X 3 WEEKS 05/29/2014 Appointment: Ale Carlos WPtel: [phone] [place] Sick 05/29/2014 Patient Education: Patient Medication Summary Completed 05/29/2014 Patient Education: Hypertension Completed 05/29/2014 Appointment: Ale Carlos WPtel: [phone] [facility] [place] Lab Draw 05/23/2014 Patient Education: Patient Medication Summary Completed 05/23/2014 Visit Plan: Pneumonia - Pt has been diagnosed with pneumonia by physical exam. A chest xray has been ordered as have antibiotics. The pt is aware of the diagnosis and the need for acute treatment of this illness. Mfckytzvg-agwle-rocblbp flonase nasal spray Hyponatremia-increase gatorade as directed 05/20/2014 Visit Plan: Pneumonia - Pt has been diagnosed with pneumonia by physical exam. A chest xray has been ordered as have antibiotics. The pt is aware of the diagnosis and the need for acute treatment of this illness. Jlvzcafhq-rtcoz-rljkwlb flonase nasal spray Hyponatremia-increase gatorade as directed ADDENDUM: RECOMMEND PATIENT START ON ALBUTEROL NEBULIZER TREATMENTS EVERY 4 HOURS NEEDED FOR SHORTNESS OF BREATH/WHEEZING. DX SECONDARY PNEUMONIA FROM INFLUENZA, COUGH 05/20/2014 Patient Education: Patient Medication Summary Completed 05/20/2014 Appointment: Ale Carlos WPtel: [phone] [facility] [place] Injection 03/26/2014 Patient Education: Patient Medication Summary Completed 03/26/2014 Visit Plan: Hypertension - well controlled -continue with no added salt diet. Pt has been encouraged to exercise daily. The pt has been advised to call the office if there are any acute concerns about change in blood pressure readings at home. Pt needs to stop the lisinopril due to cough and pt is to start on losartan and we will monitor his symptoms. I have discussed this with Dr. Merlos. 03/25/2014 Appointment: Ale Carlos WPtel: [address] [place], [place] [phone] Follow up 03/25/2014 Patient Education: Patient Medication Summary Completed 03/25/2014 Patient Education: Hypertension Completed 03/25/2014 Visit Plan: Lycjk-sabmhmlvv-vkyyfaz laryngeal reflux-RX for protonix (patient is on plavix) and follow up in 1 month. Call if symptoms do not improve or if any worse Allergies-improved on flonase-continue as directed and call if symptoms return. 02/08/2014 Patient Education: Patient Medication Summary Completed 02/08/2014 Visit Plan: Hypertension - well controlled - continue with current medications, continue with no added salt diet. Pt has been encouraged to exercise daily. The pt has been advised to call the office if there are any acute concerns about change in blood pressure readings at home. 12/24/2013 Appointment: Ale Carlos WPtel: [address] [place], [place] [phone] Follow up 12/24/2013 Patient Education: Patient Medication Summary Completed 12/24/2013 Visit Plan: Allergies - chronic - recommended pt to use allergy medication as prescribed. Pt has been counseled as the appropriate use of the medication. Pt to call if allergy symptoms are not controlled with the medication. If using nasal spray, instructions as follows: Nasal spray- use twice daily, one spray per nostril twice daily, after 30 minutes, rinse out nose with saline spray.. Use opposite hand per nostril to spray in the nasal steroid allergy spray. Weight loss - improved - pt to continue with increase in protein and portion size. 11/20/2013 Appointment: Ale Carlos WPtel: [facility] Follow up 11/20/2013 Patient Education: Patient Medication Summary Completed 11/20/2013 Appointment: Ale Carlosl: [facility] Follow up 11/06/2013 Visit Plan: Weight loss-increase portions-add snacks in the morning and afternoon-follow up in 3 weeks for weight check Low sodium- check labs-restart gatorade Smxnnda-azicoq-vgdls labs and UA 10/30/2013 Patient Education: Patient Medication Summary Completed 10/30/2013 Appointment: Ale Carlos WPtel: [facility] Follow up 10/16/2013 Visit Plan: Sinusitis - Pt has acute infection - pain in face, maxillary region, Pt informed to use decongestant, RX given to patient, sinus rinses also recommended. Call if symptoms do not show improvement. Tick bite - rx for doxycycline Allergies - chronic - recommended pt to use allergy medication as prescribed. Pt has been counseled as the the appropriate use of the medication. Pt to call if allergy symptoms are not controlled with the medication. If using nasal spray, instructions as follows: Nasal spray- use twice daily, one spray per nostril twice daily, after 30 minutes, rinse out nose with saline spray.. Use opposite hand per nostril to spray in the nasal steroid allergy spray. 10/08/2013 Patient Education: Patient Medication Summary Completed 10/08/2013 Visit Plan: Hypertension - well controlled - continue with current medications, continue with no added salt diet. Pt has been encouraged to exercise daily. The pt has been advised to call the office if there are any acute concerns about change in blood pressure readings at home. Arthritis- occasionally uncontrolled symptoms- recommend pt to take antiinflammatory as directed for pain control. Use tylenol for break through pain symptoms. Memory loss - pt has stability of his memory on the namenda and aricept. CAD - on plavix - continue with treatment per Dr. Merlos. 06/18/2013 Appointment: Ale Carlos WPtel: [facility] Follow up 06/18/2013 Patient Education: Patient Medication Summary Completed 06/18/2013 Patient Education: Hypertension Completed 06/18/2013 Visit Plan: Hypertension - uncontrolled - the patient's medications have been modified as documented in the visit note. The patient has been counseled to cut back on salt in diet for a no added salt diet, low fat diet, start an exercise program with low weight bearing exercises and higher aerobic activity for heart health. The patient is to check blood pressure readings as an outpatient and either fax, call, or email the readings to the office next week for practicioner to review. The pt is to call for acute concerns. 04/04/2013 Appointment: Ale Carlos WPtel: 101 [facility] Follow up 04/04/2013 Patient Education: Patient Medication Summary Completed 04/04/2013 Patient Education: Hypertension Completed 04/04/2013 Visit Plan: Hypertension - well controlled at home per patient report, continue with current medications, continue with no added salt diet. Pt has been encouraged to exercise daily. The pt has been advised to call the office if there are any acute concerns about change in blood pressure readings at home. Mild leukopenia on last cbc - a cbc was drawn today, will be evaluated and call pt with report. 02/19/2013 Appointment: Ale Carlos WPtel: [phone] [facility] Follow up 02/19/2013 Patient Education: Patient Medication Summary Completed 02/19/2013 Patient Education: Hypertension Completed 02/19/2013 Patient Education: Patient Medication Summary Completed 02/06/2013 Visit Plan: Hypertension - well controlled - continue with current medications, continue with no added salt diet. Pt has been encouraged to exercise daily. The pt has been advised to call the office if there are any acute concerns about change in blood pressure readings at home. Mild Cognitive Impairment - discussed with pt the diagnosis, pt is not yet in category of dementia, but is in danger of approaching that level of memory loss. Treatment of patient with namenda and ativan - to be continued as he had improvement of his anxiety and memory loss. 10/16/2012 Appointment: Ale Carlos WPtel: [phone] [facility] Follow up 10/16/2012 Patient Education: Patient Medication Summary Completed 10/16/2012 Patient Education: Hypertension Completed 10/16/2012 Visit Plan: Hypertension - well controlled - continue with current medications, continue with no added salt diet. Pt has been encouraged to exercise daily. The pt has been advised to call the office if there are any acute concerns about change in blood pressure readings at home. Hyperlipidemia - pt has been counseled about appropriate diet, exercise, and need for low fat food choices. I have discussed the need for the patient to take medications as prescribed. If the patient has negative side effects from the medication, they are to CALL the office and not abruptly discontinue the medication without discussion with a practicioner in the office. We will check labs in 3-6 months for follow up on the patient's chronic medical problem and to assure normal liver response to medications. Mild Cognitive Impairment - discussed with pt and family the diagnosis, pt is not yet in category of dementia, but is in danger of approaching that level of memory loss. Treatment modalities have been discussed and pt is considering different treatment options. We will follow up with treatment at next office visit after review of testing. Irritable bowel syndrome - pt doing well off of bentyl, pt is to call [facility] if symptoms of irritable colon return. 06/19/2012 Appointment: Ale Carlos [facility]Ptel: [phone] Follow up 06/19/2012 Patient Education: Patient Medication Summary Completed 06/19/2012 Patient Education: Hypertension Completed 06/19/2012 Visit Plan: Hypertension - well controlled - continue with current medications, continue with no added salt diet. Pt has been encouraged to exercise daily. The pt has been advised to call the office if there are any acute concerns about change in blood pressure readings at home. OA - symptoms controlled - and pt is to have a trial on lower dose of mobic, if pain continues to be controlled on the lower dose of the medication, can stop the mobic and let the office know if he is successfully pain free off of the medication. Irritable bowel syndrome - pt to trial on lower dose of the bentyl and see how he does, then trial off of the bentyl. 03/20/2012 Appointment: Ale Carlos WPtel: [phone] [facility] Follow up 03/20/2012 Patient Education: Patient Medication Summary Completed 03/20/2012 Patient Education: High Blood Pressure: Essential Hypertension Completed 2011 Appointment: Ale Carlos WPtel: [phone] [facility] Follow up 02/22/2012 Visit Plan: Hypertension - well controlled - continue with current medications, continue with no added salt diet. Pt has been encouraged to exercise daily. The pt has been advised to call the office if there are any acute concerns about change in blood pressure readings at home. Hyperlipidemia - pt has been counseled about appropriate diet, exercise, and need for low fat food choices. I have discussed the need for the patient to take medications as prescribed. If the patient has negative side effects from the medication, they are to CALL the office and not abruptly discontinue the medication without discussion with a practicioner in the office. We will check labs in 3-6 months for follow up on the patient's chronic medical problem and to assure normal liver response to medications. 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 01/24/2012 Appointment: Ale Carlos WPtel: [phone] [facility] Follow up 01/24/2012 Patient Education: Patient Medication Summary Completed 01/24/2012 Patient Education: High Blood Pressure: Essential Hypertension Completed 2011 Visit Plan: Hypertension and Coronary artery disease- recommended pt to cut his LISINOPRIL to 1/[address] Dash is to bring in his blood pressure to clinic in two- three weeks for review. 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 I anticipate it will be at least 4-6 months before he can be off of the plavix and aspirin for additonal procedures unless it is of extreme urgency. 12/20/2011 Appointment: Ale Carlos [facility]el[facility] [address] [facility] Follow up 12/20/2011 Patient Education: Patient Medication Summary Completed 12/20/2011 Patient Education: High Blood Pressure: Essential Hypertension Completed 2011 Appointment: Ale Carlos WPtel: [address] [place] [address] Other 12/13/2011 Visit Plan: Pain in groin post heart cath with increased discomfort and increased size - will order an ultrasound for today. 12/09/2011 Appointment: Ale Carlos WPtel: [address] [place], [place] [id number] Other 12/09/2011 Patient Education: Patient Medication Summary Completed 12/09/2011 Visit Plan: Hypertension - well controlled - continue with current medications, continue with no added salt diet. Pt has been encouraged to exercise daily. The pt has been advised to call the office if there are any acute concerns about change in blood pressure readings at home. Mild cognitive Impairment - appears to be improved. 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 He is tolerating the namenda and aricept and at this point in time does not need increased dose of either medication. 08/25/2011 Appointment: Ael Carlos WPtel: [address] [place] [address] Other 08/25/2011 Patient Education: Patient Medication Summary Completed 08/25/2011 Patient Education: High Blood Pressure: Essential Hypertension Completed 2011 Visit Plan: Hypertension - well controlled - continue with current medications, continue with no added salt diet. Pt has been encouraged to exercise daily. The pt has been advised to call the office if there are any acute concerns about change in blood pressure readings at home. Irritable Bowel syndrome - continue with daily use of dicyclomine for irritable bowel cramping symptoms. Constipation - pt given recipe for power pudding for prn use. Mild cognitive impairment - Pt has had improved anxiety and memory loss symptoms on aricept and namenda. No change in current treatment. Anxiety - pt's current RX for ativan has gone bad and he needs a refill for current supply of new pills for prn use - pt given refill today. Arthritis - pain controlled with use of mobic at low doses. 06/23/2011 Appointment: Ale Carlos WPtel: [address] [place] [address] Other 06/23/2011 Patient Education: Patient Medication Summary Completed 06/23/2011 Patient Education: High Blood Pressure: Essential Hypertension Completed 2011 Appointment: Ale Carlos WPtel: [address] [place] [address] Other 04/26/2011 Visit Plan: Hypertension - well controlled - continue with current medications, continue with no added salt diet. Pt has been encouraged to exercise daily. The pt has been advised to call the office if there are any acute concerns about change in blood pressure readings at home. The left leg/ groin pain- the LATERAL FEMORAL CUTANEOUS NERVE was the nerve that we think was causing a lot of pain symptoms in the left groin. I agree with Dr. Merlos with the recommendation to stop the plavix. Restart gatorade. Diverticulosis - symptoms appear to be resolved, call if there is acute changes in symptoms of abdominal pain. Pt to continue to avoid nuts, seeds, etc. 04/19/2011 Appointment: Ale Carlos WPtel: [address] [place] [address] Other 04/19/2011 Patient Education: Patient Medication Summary Completed 04/19/2011 Patient Education: High Blood Pressure: Essential Hypertension Completed 2010 Patient Education: Diverticulosis Diet Completed 04/19/2011 Appointment: Nelly Keen WPtel: [address] [place], [place] [id number] Other 03/23/2011 Patient Education: Patient Medication Summary Completed 03/23/2011 Patient Education: High Blood Pressure: Essential Hypertension Completed 2010 Visit Plan: Record blood pressure and heart rate at home and drop the readings by the office in two weeks. No change in medications today. Laceration - removed suture today - pt to call if any complications arise. 03/08/2011 Appointment: Ale Carlos WPtel: [address] [place] [address] Other 03/08/2011 Patient Education: Patient Medication Summary Completed 03/08/2011 Patient Education: High Blood Pressure: Essential Hypertension Completed 2010 Visit Plan: Hypertension - uncontrolled - the patient's medications have been modified as documented in the visit note. The patient has been counseled to cut back on salt in diet for a no added salt diet, low fat diet, start an exercise program with low weight bearing exercises and higher aerobic activity for heart health. The patient is to check blood pressure readings as an outpatient and either fax, call, or email the readings to the office next week for practicioner to review. The pt is to call for acute concerns. DIRECTED BY DR. MERLOS, GO TO HIS OFFICE TOMORROW WITH YOUR BLOOD PRESSURE READINGS. DR. CARLOS WILL FAX YOUR OFFICE VISIT TO HIS OFFICE TODAY. Laceration of the finger- use the bandaids on the finger during the day, leave off the bandaid after your evening shower for an hour or so, then replace the bandaide before bed.. Use neosporin on the cut. Return to clinic next Tuesday and Dr. Carlos will take out the stitches. Irritable bowel- stop the scheduled bentyl and use it only as needed...if your stomach starts to cause pain, there is excessive abdominal cramping, or diarrhea, you may restart the bentyl up to two times a day. 03/01/2011 Appointment: Ale Carlos WPtel: [facility] [place] Other 03/01/2011 Patient Education: Patient Medication Summary Completed 03/01/2011 Patient Education: High Blood Pressure: Essential Hypertension Completed 2010 Appointment: Nelly Keen WPtel: [phone] [place] Injection 02/25/2011 Patient Education: Patient Medication Summary Completed 02/25/2011 Appointment: Ale Carlos [facility]Ptel: [address] [facility] [place] Injection 02/16/2011 Patient Education: Patient Medication Summary Completed 02/16/2011 Appointment: Ale Carlos WPtel: [facility] [place] Injection 02/09/2011 Patient Education: Patient Medication Summary Completed 02/09/2011 Appointment: Ale Carlos WPtel: [address] [place], [place] [id number] Follow up 02/02/2011 Visit Plan: Hydrocele and varicocele- Recommend wearing boxer briefs instead of regular underwear. Memory loss- recommend to increase the NAMENDA a starter pack given today to start and increase to 10 mg twice daily. Pt to continue with current dose of Aricept. Anxiety - continue with use of the ativan prn for his severe bouts of anxiety. Dr. Dash has given me permission to discuss his condition with his son - Kenji Dash in [place]. Upon our conversation [id number], Kenji vocalized concerns for his Dad's memory. He stated that he has noticed his father not being as quick in his cognitive functioning, he has noticed some concerns with driving as well. He states that he will discuss these concerns with his parents and other siblings. 02/01/2011 Appointment: Ale Carlos WPtel: [address] [place], [place] [id number] Other 02/01/2011 Patient Education: Patient Medication Summary Completed 02/01/2011 Visit Plan: Testicular pain-improved in the office today- but apparently had episode of acute pain last night-check ultrasound. UA done in the office negative. Anxiety - the patient continues with symptoms of anxiety (tachycardia, overwhelming sensations, stress, insomnia, etc). Instructed patient okay to take lorazepam every 8 hours as needed. 01/27/2011 Appointment: Ale Carlos WPtel: [facility] [place] New Patient 01/27/2011 Patient Education: Patient Medication Summary Completed 01/27/2011 Visit Plan: Bruising/hematoma left arm-discussed natural and expected course of this diagnosis and to alert me if symptoms do not follow expected course or if any worse, Continue with ice/heat as needed for discomfort. Call for any concerns. 01/26/2011 Appointment: Nelly Keen WPtel: [phone] [place] Other 01/26/2011 Patient Education: Patient Medication Summary Completed 01/26/2011 Visit Plan: Nocturia-defer treatment to Dr. Quintero. Continue with proscar and flomax. Return to follow up with Dr. Quintero on Tuesday as scheduled. Call if unable to void, fever, other concerns, etc. Abdominal bloating, gas-recommend lactobacillus 1 po twice daily while on antibiotics. Diarrhea-resolved per patient report. Finish antibiotics for full course. 01/15/2011 Visit Plan: Nocturia-defer treatment to Dr. Quintero. Continue with proscar and flomax. Return to follow up with Dr. Quintero on Tuesday as scheduled. Call if unable to void, fever, other concerns, etc. Abdominal bloating, gas-recommend lactobacillus 1 po twice daily while on antibiotics. Diarrhea-resolved per patient report. Finish antibiotics for full course. PT ADMITTED TO HOSPITAL IN THE EVENING OF 01/15/11 01/15/2011 Appointment: Nelly Keen [facility]Ptel[facility] [address] [facility] [place] [address] Other 01/15/2011 Patient Education: Patient Medication Summary Completed 01/15/2011 Visit Plan: Abdominal symptoms with elevated liver enzymes - will order gallbladder ultrasound and if negative, the doctor will pursue a CT of the abdominal blood vessels to check for adequate blood flow through those vessels. The scan is for Jan 12 at 8:00 am. no food or drink aftermidnight the day prior to the gallbladder ultrasound. I have advised the pt to remain on a lactose free diet as this may also be a source of the diarrhea. He was advised during a consult on the phone that he needed to try a lactose free diet - he admits that after 3 days of the lactose free diet, he had improvement in his symptoms, but has gone back on lactose after only 3 days of the lactose free diet. 01/06/2011 Appointment: Ale Carlos WPtel: [address] [facility] [place] New Patient 01/06/2011 Patient Education: Patient Medication Summary Completed 01/06/2011 Instructions Comment . Bruising/hematoma left arm-discussed natural and expected course of this diagnosis and to alert me if symptoms do not follow expected course or if any worse, Continue with ice/heat as needed for discomfort. Call for any concerns. stop the cefuroxime - start on azithromycin - the first day is 500mg, then it is 250mg daily x 4 more days i will also call out a script for nystatin swish ans swallow - you have thrush. . Bronchitis - acute case of bronchitis identified. Pt has been given antibiotics, breathing treatments as appropriate, and pt has been instructed to call if symptoms are not improved, or if symptoms acutely worsen. stop the cefuroxime - start on azithromycin - the first day is 500mg, then it is 250mg daily x 4 more days Thrush - i will also call out a script for nystatin swish and swallow - you have thrush. . Hypertension - well controlled - continue with current medications, continue with no added salt diet. Pt has been encouraged to exercise daily. The pt has been advised to call the office if there are any acute concerns about change in blood pressure readings at home. Esophageal Reflux - the patient has been counseled against excessive intake of caffeine, spicy foods, peppermint, and cinnamon - all of which can exacerbate esophageal reflux. The patient is to take medications as prescribed and call the office if the symptoms are not improving. Chronic Depression and anxiety - the pt has symptoms of chronic anxiety and depression that have been fairly well controlled since the last office visit. The pt has expected periods of exacerbation with abatement of the symptoms with change in situational exposure. No change in current medications. . Hypertension - well controlled - continue with current medications, continue with no added salt diet. Pt has been encouraged to exercise daily. The pt has been advised to call the office if there are any acute concerns about change in blood pressure readings at home. call the office in 2 weeks - let me know if the cough has improved - if not - I will stop the lisinopril and start you on a different medication. . Hypertension - well controlled - continue with current medications, continue with no added salt diet. Pt has been encouraged to exercise daily. The pt has been advised to call the office if there are any acute concerns about change in blood pressure readings at home. Sinusitis/cough - improving - continue with supportive care, pt to call if symptoms are not improving. . Allergies - recommended pt to use allergy medication as prescribed. Pt has been counseled as to the appropriate use of the medication. Pt to call if allergy symptoms are not controlled with the medication. If using nasal spray, instructions as follows: Nasal spray- use twice daily, one spray per nostril twice daily, after 30 minutes, rinse out nose with saline spray.. Use opposite hand per nostril to spray in the nasal steroid allergy spray. . Hypertension - uncontrolled - the patient's medications have been modified as documented in the visit note. The patient has been counseled to cut back on salt in diet for a no added salt diet, low fat diet, start an exercise program with low weight bearing exercises and higher aerobic activity for heart health. The patient is to check blood pressure readings as an outpatient and either fax , call, or email the readings to the office next week for practicioner to review. The pt is to call for acute concerns. DIRECTED BY DR. MERLOS, GO TO HIS OFFICE TOMORROW WITH YOUR BLOOD PRESSURE READINGS. DR. CARLOS WILL FAX YOUR OFFICE VISIT TO HIS OFFICE TODAY. Laceration of the finger- use the bandaids on the finger during the day, leave off the bandaid after your evening shower for an hour or so, then replace the bandaide before bed.. Use neosporin on the cut. Return to clinic next Tuesday and Dr. Carlos will take out the stitches. Irritable bowel- stop the scheduled bentyl and use it only as needed...if your stomach starts to cause pain, there is excessive abdominal cramping, or diarrhea , you may restart the bentyl up to two times a day. . Hypertension and Coronary artery disease- recommended pt to cut his LISINOPRIL to 1/[address] Dash is to bring in his blood pressure to clinic in two- three weeks for review. 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 I anticipate it will be at least 4-6 months before he can be off of the plavix and aspirin for additonal procedures unless it is of extreme urgency. . Hypertension - well controlled - continue with current medications, continue with no added salt diet. Pt has been encouraged to exercise daily. The pt has been advised to call the office if there are any acute concerns about change in blood pressure readings at home. Mild Cognitive Impairment - discussed with pt the diagnosis, pt is not yet in category of dementia, but is in danger of approaching that level of memory loss. Treatment of patient with namenda and ativan - to be continued as he had improvement of his anxiety and memory loss. INCREASE YOUR MELOXICAM (MOBIC) TO 1/2 PILL TWICE DAILY X 5 DAYS CALL IF YOUR ELBOWS SWELLS AGAIN OR YOU DEVELOP PAIN OR OTHER CONCERNS . Bursitis-right elbow-drained today in the office-increase anti inflammatories for the next 5 days as directed-call if symptoms do not resolve, swelling returns or new symptoms develop-patient verbalized understanding of plan. INCREASE GATORADE TO THREE TIMES PER DAY X 2 DAYS THEN TWICE DAILY stop doxycycline START CEFDINIR AND ZITHROMAX . Pneumonia - Pt has been diagnosed with pneumonia by physical exam. A chest xray has been ordered as have antibiotics. The pt is aware of the diagnosis and the need for acute treatment of this illness. Zbbnoyyin-nblfe-sotquos flonase nasal spray Hyponatremia-increase gatorade as directed . Pneumonia - Pt has been diagnosed with pneumonia by physical exam. A chest xray has been ordered as have antibiotics. The pt is aware of the diagnosis and the need for acute treatment of this illness. Zvjfvqbxo-bwmbj-gliatvi flonase nasal spray Hyponatremia-increase gatorade as directed ADDENDUM: RECOMMEND PATIENT START ON ALBUTEROL NEBULIZER TREATMENTS EVERY 4 HOURS NEEDED FOR SHORTNESS OF BREATH/WHEEZING. DX SECONDARY PNEUMONIA FROM INFLUENZA, COUGH INCREASE GATORADE TO TWICE DAILY . Abdominal pain-patient reports worsening symptoms-schedule CT abdomen/pelvis to evaluate for acute abnormality Low sodium-increase gatorade to twice HTN-well controlled-no change in treatment on the Requip - decrease the dose to one pill nightly x 2 weeks then decrease to 1/2 pill nightly x 1 week then stop.. Hypertension - well controlled - continue with current medications, continue with no added salt diet. Pt has been encouraged to exercise daily. The pt has been advised to call the office if there are any acute concerns about change in blood pressure readings at home. Memory loss -stable - continue with aricept and namenda. [place] [facility] [place] pressure check today in the office-improving. Appointment in [address] Carlos. Recommend Lactobacillus 1 orally twice daily for the next 5 days then stop. If you are having cramping and bloating, take the bentyl as prescribed by Dr. Quintero. Increase your fluid intake during the day. Recommend gatorade 8oz daily at well for your decreased sodium level. . Nocturia -defer treatment to Dr. Quintero. Continue with proscar and flomax. Return to follow up with Dr. Quintero on Tuesday as scheduled. Call if unable to void, fever , other concerns, etc. Abdominal bloating, gas-recommend lactobacillus 1 po twice daily while on antibiotics. Diarrhea-resolved per patient report. Finish antibiotics for full course. INCREASE GATORADE TO TWICE DAILY . Abdominal pain-patient reports worsening symptoms-schedule CT abdomen/pelvis to evaluate for acute abnormality Low sodium-increase gatorade to twice HTN-well controlled-no change in treatment . Pain in groin post heart cath with increased discomfort and increased size - will order an ultrasound for today. Dr. Carlos talked to Dr. Merlos today - He requested that we have you STOP the AMLODIPINE (brand name is NORVASC) - His office will call you to set up an appointment for NEXT WEEK. Keep track of your blood pressures at home, call the office if they are above 160 for the top number or consistently above 110 for the bottom number . Hypotension - see notes as follows: Dr. Carlos talked to Dr. Merlos today - He requested that we have you STOP the AMLODIPINE (brand name is NORVASC) - His office will call you to set up an appointment for NEXT WEEK. Keep track of your blood pressures at home, call the office if they are above 160 for the top number or consistently above 110 for the bottom number flu shot . Abdominal pain - nausea - Pt to have IV fluids at hospital I sent a prescription of generic zyrtec to [facility] - if it is expensive get the over the counter dose. Use saline nasal spray twice a day. . Allergies - chronic - recommended pt to use allergy medication as prescribed. Pt has been counseled as to the appropriate use of the medication. Pt to call if allergy symptoms are not controlled with the medication. If using nasal spray, instructions as follows: Nasal spray- use twice daily, one spray per nostril twice daily, after 30 minutes, rinse out nose with saline spray.. Use opposite hand per nostril to spray in the nasal steroid allergy spray. . Hypertension - well controlled - continue with current medications, continue with no added salt diet. Pt has been encouraged to exercise daily. The pt has been advised to call the office if there are any acute concerns about change in blood pressure readings at home. Hyperlipidemia - pt has been counseled about appropriate diet, exercise, and need for low fat food choices. I have discussed the need for the patient to take medications as prescribed. If the patient has negative side effects from the medication, they are to CALL the office and not abruptly discontinue the medication without discussion with a practitioner in the office. We will check labs in 3-6 months for follow up on the patient's chronic medical problem and to assure normal liver response to medications. Mild cognitive impairment - continue with aricept, namenda. - symptoms stable. pt due for labs to be done for cholesterol check, renal function, and thyroid and cbc prevnar 13 injection today . Record blood pressure and heart rate at home and drop the readings by the office in two weeks. No change in medications today. Laceration - removed suture today - pt to call if any complications arise. . Nulrc-stoosyrli-ttnhcod laryngeal reflux-RX for protonix (patient is on plavix) and follow up in 1 month. Call if symptoms do not improve or if any worse Allergies-improved on flonase-continue as directed and call if symptoms return. . Hypertension - well controlled - continue with current medications, continue with no added salt diet. Pt has been encouraged to exercise daily. The pt has been advised to call the office if there are any acute concerns about change in blood pressure readings at home. Mild cognitive Impairment - appears to be improved. 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 He is tolerating the namenda and aricept and at this point in time does not need increased dose of either medication. . Bronchitis - acute but improving - case of bronchitis - Pt has been given antibiotics, breathing treatments as appropriate, and pt has been instructed to call if symptoms are not improved, or if symptoms acutely worsen. CHECK LABS-CBC, CMP, UA WITH C&S IF INDICATED . Weight loss-increase portions-add snacks in the morning and afternoon-follow up in 3 weeks for weight check Low sodium-check labs-restart gatorade Utjdafr-hoqkdf-nuuql labs and UA . Joint effusion - recommended drainage and referral to orthopedic surgeon for surgical debridement of bursa . Hypertension - well controlled - continue with current medications, continue with no added salt diet. Pt has been encouraged to exercise daily. The pt has been advised to call the office if there are any acute concerns about change in blood pressure readings at home. Chronic Depression and anxiety - the pt has symptoms of chronic anxiety and depression that have been fairly well controlled since the last office visit. The pt has expected periods of exacerbation with abatement of the symptoms with change in situational exposure. No change in current medications. MCI - symptoms improving with his new medication - pt did not bring his new medications with him to clinic and his discharge summary from the Behavioral unit did not include a medication list. PT HAS BEEN INSTRUCTED TO INCREASE HIS LISINOPRIL TO 20MG DAILY AND MONITOR BLOOD PRESSURE AT HOME AND BRING IN REPORT TO HOME.. Hypertension - uncontrolled - the patient's medications have been modified as documented in the visit note. The patient has been counseled to cut back on salt in diet for a no added salt diet, low fat diet, start an exercise program with low weight bearing exercises and higher aerobic activity for heart health. The patient is to check blood pressure readings as an outpatient and either fax , call, or email the readings to the office next week for practicioner to review. The pt is to call for acute concerns. Nasal spray- use twice daily, one spray per nostril twice daily, after 30 minutes, rinse out nose with saline spray.. Use opposite hand per nostril to spray in the nasal steroid allergy spray.. Sinusitis - Pt has acute infection - pain in face, maxillary region, Pt informed to use decongestant, RX given to patient, sinus rinses also recommended. Call if symptoms do not show improvement. Tick bite - rx for doxycycline Allergies - chronic - recommended pt to use allergy medication as prescribed. Pt has been counseled as the the appropriate use of the medication. Pt to call if allergy symptoms are not controlled with the medication. If using nasal spray, instructions as follows: Nasal spray- use twice daily, one spray per nostril twice daily, after 30 minutes, rinse out nose with saline spray.. Use opposite hand per nostril to spray in the nasal steroid allergy spray. . Hypertension - well controlled - continue with current medications, continue with no added salt diet. Pt has been encouraged to exercise daily. The pt has been advised to call the office if there are any acute concerns about change in blood pressure readings at home. Arthritis- occasionally uncontrolled symptoms- recommend pt to take antiinflammatory as directed for pain control. Use tylenol for break through pain symptoms. Memory loss - pt has stability of his memory on the namenda and aricept. CAD - on plavix - continue with treatment per Dr. Merlos. . Hypertension - well controlled at home per patient report , continue with current medications, continue with no added salt diet. Pt has been encouraged to exercise daily. The pt has been advised to call the office if there are any acute concerns about change in blood pressure readings at home. Mild leukopenia on last cbc - a cbc was drawn today, will be evaluated and call pt with report. Increase your lorazepam to 1/2 tablet 3 times per day as needed. If you are still feeling anxious, may take an additional half tablet at bedtime only. Your testicular ultrasound is scheduled for Tuesday at 2:00pm. We will call you with the results. Bring your blood pressure log to your appointment with Dr. Carlos on Tuesday. . Testicular pain-improved in the office today-but apparently had episode of acute pain last night-check ultrasound. UA done in the office negative. Anxiety - the patient continues with symptoms of anxiety (tachycardia, overwhelming sensations, stress, insomnia, etc). Instructed patient okay to take lorazepam every 8 hours as needed. INCREASE ARICEPT (DONEPEZIL) TO 5MG TAKEN TWICE A DAY. DECREASE LOSARTAN TO 25MG - TAKE 1/2 OF A TABLET OF THE 50MG PILL DAILY CHECK BLOOD PRESSURE AT HOME AND BRING BY THE OFFICE ON Tuesday HOLD THE SIMVASTATIN X 3 WEEKS . Hypertension - too well controlled - decrease losartan to 25mg daily. DECREASE LOSARTAN TO 25MG - TAKE 1/2 OF A TABLET OF THE 50MG PILL DAILY CHECK BLOOD PRESSURE AT HOME AND BRING BY THE OFFICE ON TUESDAY MORNING Dementia with anxiety - INCREASE ARICEPT (DONEPEZIL) TO 5MG TAKEN TWICE A DAY. Fatigue/Malaise - HOLD THE SIMVASTATIN X 3 WEEKS . Nocturia-defer treatment to Dr. Quintero. Continue with proscar and flomax. Return to follow up with Dr. Quintero on Tuesday as scheduled. Call if unable to void, fever, other concerns, etc. Abdominal bloating, gas-recommend lactobacillus 1 po twice daily while on antibiotics. Diarrhea-resolved per patient report. Finish antibiotics for full course. PT ADMITTED TO HOSPITAL IN THE EVENING OF 01/15/11 pt has been advised to use THE FEXOFENADINE 180MG DAILY PT NEEDS TO USE SALINE NASAL SPRAY AND USE IT TWICE DAILY - IN THE MORNING AND BEFORE BED PT TO USE CORCIDIN HBP ONE PILL TWICE DAILY X 10 DAYS THEN STOP. . Allergies - chronic - recommended pt to use allergy medication as prescribed. Pt has been counseled as the appropriate use of the medication. Pt to call if allergy symptoms are not controlled with the medication. If using nasal spray, instructions as follows: Nasal spray- use twice daily, one spray per nostril twice daily, after 30 minutes, rinse out nose with saline spray.. Use opposite hand per nostril to spray in the nasal steroid allergy spray. Weight loss - improved - pt to continue with increase in protein and portion size. . Hydrocele and varicocele- Recommend wearing boxer briefs instead of regular underwear. Memory loss- recommend to increase the NAMENDA a starter pack given today to start and increase to 10 mg twice daily. Pt to continue with current dose of Aricept. Anxiety - continue with use of the ativan prn for his severe bouts of anxiety. Dr. Dash has given me permission to discuss his condition with his son - Kenji Dash in [place]. Upon our conversation [id number], Kenji vocalized concerns for his Dad's memory. He stated that he has noticed his father not being as quick in his cognitive functioning, he has noticed some concerns with driving as well. He states that he will discuss these concerns with his parents and other siblings. stop losartan - check blood pressure and heart rate twice daily x 1 week - bring by the office for review - if elevated - we will increase the lisinopril to 40mg daily. . Hypertension - well controlled - continue with current medications except for stopping losartan, continue with no added salt diet. Pt has been encouraged to exercise daily. The pt has been advised to call the office if there are any acute concerns about change in blood pressure readings at home. Hyponatremia - decrease dose of sodium at lunch as it seems to be making Dr. Dash nauseated. decrease Protonix (pantoprazole) to ONE pill ONE time daily. . Hypertension - well controlled - continue with current medications, continue with no added salt diet. Pt has been encouraged to exercise daily. The pt has been advised to call the office if there are any acute concerns about change in blood pressure readings at home. Alzheimer's Dementia - Pt with slowly progressive pattern. I have discussed with pt and family the prognosis of this disease state and the need for the family to anticipate further decline with behavior changes. Continue with current plan of treatment. . Hypertension - well controlled - continue with current medications, continue with no added salt diet. Pt has been encouraged to exercise daily. The pt has been advised to call the office if there are any acute concerns about change in blood pressure readings at home. . Chronic Depression and anxiety-improved over the past several weeks- the pt has symptoms of chronic anxiety and depression that have been fairly well controlled since the last office visit. The pt has expected periods of exacerbation with abatement of the symptoms with change in situational exposure. No change in current medications. INSTRUCTED PATIENT THAT HE SHOULD NOT BE DRIVING TO [place] Pt is to try 1/2 pill of mobic (meloxicam) daily, if no increase in pain, then can try a trial off of the mobic in one week. Pt is to try a trial off of the bentyl(dicyclomine). Hypertension - well controlled - continue with current medications, continue with no added salt diet. Pt has been encouraged to exercise daily. The pt has been advised to call the office if there are any acute concerns about change in blood pressure readings at home. OA - symptoms controlled - and pt is to have a trial on lower dose of mobic, if pain continues to be controlled on the lower dose of the medication, can stop the mobic and let the office know if he is successfully pain free off of the medication. Irritable bowel syndrome - pt to trial on lower dose of the bentyl and see how he does, then trial off of the bentyl. . Ethmoid sinusitis - check sinus xray - if positive will call out rx for antibiotic nasal spray . Hypertension - well controlled - continue with current medications, continue with no added salt diet. Pt has been encouraged to exercise daily. The pt has been advised to call the office if there are any acute concerns about change in blood pressure readings at home. Arthritis- occasionally uncontrolled symptoms- recommend pt to take antiinflammatory as directed for pain control. Use tylenol for break through pain symptoms. Memory loss - pt has stability of his memory on the namenda and aricept. CAD - on plavix - continue with treatment per Dr. Merlos. ESCITALOPRAM (LEXAPRO) 5MG DAILY AT BEDTIME-THIS IS THE NEW MEDICATION FOR DEPRESSION TAMSULOSIN (FLOMAX) START TAKING IT AT BEDTIME STOP THE LORAZEPAM AND HYDROCODONE . Anxiety and depression - uncontrolled - Pt has been counseled about the diagnosis of depression and anxiety, the potential causes, and risks associated with the diagnosis. The pt denies suicidal ideation, or plans. The patient has been counseled about treatment options, and understands the risks associated with treatment of depression, as well as the risks associated with NOT treating the depression. I believe the pt will benefit from medical intervention and an antidepressant has been appropriately prescribed for this patient. Hypertension - well controlled - continue with current medications, continue with no added salt diet. Pt has been encouraged to exercise daily. The pt has been advised to call the office if there are any acute concerns about change in blood pressure readings at home. Urinary [id number] flomax to bedtime Dizziness-stop hydrocodone and ativan . Hypertension - well controlled - continue with current medications, continue with no added salt diet. Pt has been encouraged to exercise daily. The pt has been advised to call the office if there are any acute concerns about change in blood pressure readings at home. The left leg/ groin pain- the LATERAL FEMORAL CUTANEOUS NERVE was the nerve that we think was causing a lot of pain symptoms in the left groin. I agree with Dr. Merlos with the recommendation to stop the plavix. Restart gatorade. Diverticulosis - symptoms appear to be resolved, call if there is acute changes in symptoms of abdominal pain. Pt to continue to avoid nuts, seeds, etc. stop lisinopril and start on losartan 50mg daily. . Hypertension - well controlled -continue with no added salt diet. Pt has been encouraged to exercise daily. The pt has been advised to call the office if there are any acute concerns about change in blood pressure readings at home. Pt needs to stop the lisinopril due to cough and pt is to start on losartan and we will monitor his symptoms. I have discussed this with Dr. Merlos. . Hypertension - well controlled - continue with current medications, continue with no added salt diet. Pt has been encouraged to exercise daily. The pt has been advised to call the office if there are any acute concerns about change in blood pressure readings at home. Irritable Bowel syndrome - continue with daily use of dicyclomine for irritable bowel cramping symptoms. Constipation - pt given recipe for power pudding for prn use. Mild cognitive impairment - Pt has had improved anxiety and memory loss symptoms on aricept and namenda. No change in current treatment. Anxiety - pt's current RX for ativan has gone bad and he needs a refill for current supply of new pills for prn use - pt given refill today. Arthritis - pain controlled with use of mobic at low doses. decrease CELEXA (generic name is citalopram) - take 1/2 pill daily x 1 week, then 1/2 pill every other day x 3 doses, then stop. zyrtec - - okay to stop taking the medication during the winter. Hypertension - well controlled - continue with current medications, continue with no added salt diet. Pt has been encouraged to exercise daily. The pt has been advised to call the office if there are any acute concerns about change in blood pressure readings at home. . Hypertension - well controlled - continue with current medications, continue with no added salt diet. Pt has been encouraged to exercise daily. The pt has been advised to call the office if there are any acute concerns about change in blood pressure readings at home. Esophageal Reflux - the patient has been counseled against excessive intake of caffeine, spicy foods, peppermint, and cinnamon - all of which can exacerbate esophageal reflux. The patient is to take medications as prescribed and call the office if the symptoms are not improving. Anxiety -has improved. . Abdominal symptoms with elevated liver enzymes- will order gallbladder ultrasound and if negative, the doctor will pursue a CT of the abdominal blood vessels to check for adequate blood flow through those vessels. The scan is for Jan 12 at 8:00 am. no food or drink aftermidnight the day prior to the gallbladder ultrasound. I have advised the pt to remain on a lactose free diet as this may also be a source of the diarrhea. He was advised during a consult on the phone that he needed to try a lactose free diet - he admits that after 3 days of the lactose free diet, he had improvement in his symptoms, but has gone back on lactose after only 3 days of the lactose free diet. . Hypertension - well controlled - continue with current medications, continue with no added salt diet. Pt has been encouraged to exercise daily. The pt has been advised to call the office if there are any acute concerns about change in blood pressure readings at home. Hyperlipidemia - pt has been counseled about appropriate diet, exercise, and need for low fat food choices. I have discussed the need for the patient to take medications as prescribed. If the patient has negative side effects from the medication, they are to CALL the office and not abruptly discontinue the medication without discussion with a practicioner in the office. We will check labs in 3-6 months for follow up on the patient's chronic medical problem and to assure normal liver response to medications. Mild Cognitive Impairment - discussed with pt and family the diagnosis, pt is not yet in category of dementia, but is in danger of approaching that level of memory loss. Treatment modalities have been discussed and pt is considering different treatment options. We will follow up with treatment at next office visit after review of testing. Irritable bowel syndrome - pt doing well off of bentyl, pt is to call [facility] if symptoms of irritable colon return. . Hypertension - well controlled - continue with current medications, continue with no added salt diet. Pt has been encouraged to exercise daily. The pt has been advised to call the office if there are any acute concerns about change in blood pressure readings at home. Hyperlipidemia - pt has been counseled about appropriate diet, exercise, and need for low fat food choices. I have discussed the need for the patient to take medications as prescribed. If the patient has negative side effects from the medication, they are to CALL the office and not abruptly discontinue the medication without discussion with a practicioner in the office. We will check labs in 3-6 months for follow up on the patient's chronic medical problem and to assure normal liver response to medications. 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 INCREASE YOUR MELOXICAM (MOBIC) TO 1/2 PILL TWICE DAILY X 5 DAYS CALL IF YOUR ELBOWS SWELLS AGAIN OR YOU DEVELOP PAIN OR OTHER CONCERNS . Bursitis-right elbow-drained today in the office-increase anti inflammatories for the next 5 days as directed-call if symptoms do not resolve, swelling returns or new symptoms develop-patient verbalized understanding of plan.
--- OUTSIDE RECORDS SUMMARY | 2017-06-25 04:28 | XMS REPORT | CCD ---
Author Author [facility] Organization [facility] Address [address] [place] [address] Phone Care Team Providers Care Rn Or Lvn Name Role Phone [facility] PP Unavailable CCM Unavailable Summary Purpose Interface Exchange Insurance Providers Payer name Policy type / Coverage type Covered republican ID Effective Begin Date Effective End Date WPS Medicare Part B Medicare Part B [id number] Unknown Unknown [facility] Medicare Part B [id number] Unknown Unknown Family history Runs in the family Diagnosis Age At Onset No Family Disease Entered N/A Mother Diagnosis Age At Onset No Family Disease Entered N/A Father Diagnosis Age At Onset Heart disease Unknown Social History Social History Element Codes Description Effective Dates Number of children Unknown 3 3 ([place], [place], [place]) 05/06/2015 Living arrangements Unknown House 01/11/2011 Number of adults in household Unknown 2 01/11/2011 Education level Unknown Post-Graduate PHD in chemistry 01/11/2011 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 Marital status Unknown 01/06/[address]: 547503564 Never smoker 01/06/[address]: 903185277 Quit this year quit 200401/06/2011 Has the [...] Start Date Stop Date Status Fill Instructions cetirizine 10 mg tablet RxNorm: 2374403 TABLET(S) 1 TABLET(S) PO DAILY TO TAKE INSTEAD OF THE CLARITIN 06/06/20172017 Active lisinopril 20 mg tablet RxNorm: 574149 TAKE 1 TABLET DAILY 11/25/2017 Active Mobic 15 mg tablet RxNorm: 280338 1/2 TABLET(S) DAILY 201609/16/2017 Active donepezil 10 mg tablet RxNorm: 304936 1 Tablet(s) PO daily TAKE 1 TABLET BY MOUTH ONCE DAILY 02/28/2017 11/24/2017 Active Patient requests 90 days supply Requip 0.25 mg tablet RxNorm: 713079 1 TABLET(S) PO BID 201606/22/2017 Active Patient requests 90 days supply clopidogrel 75 mg tablet RxNorm: 949588 TAKE 1 TABLET BY MOUTH EVERY DAY 12/23/2016 06/20/2017 Active lisinopril 20 mg tablet RxNorm: 388888 TAKE 1 TABLET DAILY 05/24/2017 Inactive Kenalog 40 mg/mL suspension for injection RxNorm: 9405947 Milliliter(s) Inj 11/25/2016 11/25/2016 Inactive cefdinir 300 mg capsule RxNorm: 548938 1 Capsule(s) PO BID 11/27/2016 Inactive cefdinir 300 mg capsule RxNorm: 539431 1 Capsule(s) PO BID 11/22/2016 Inactive nystatin 100,000 unit/mL oral suspension RxNorm: 405294 5 Milliliter(s) PO QID 11/18/2016 11/27/2016 Inactive azithromycin 250 mg tablet RxNorm: 242110 1 Tablet(s) PO UD 2 pills on day #1 then one pill daily x 4 more days 11/18/2016 11/22/2016 Inactive Mobic 15 mg tablet RxNorm: 396554 1/2 TABLET(S) DAILY 201603/20/2017 Inactive citalopram 10 mg tablet RxNorm: 208275 TAKE 1 TABLET BY MOUTH EVERY DAY 10/07/2016 03/05/2017 Inactive Patient requests 90 days supply mirtazapine 15 mg tablet RxNorm: 800501 TAKE ONE TABLET BY MOUTH EVERY DAY 10/06/2016 09/30/2017 Active mirtazapine 15 mg tablet RxNorm: 491160 TAKE ONE TABLET BY MOUTH EVERY DAY 10/05/2016 10/05/2016 Inactive Patient requests 90 days supply amlodipine 10 mg tablet RxNorm: 062775 TAKE 1 TABLET BY MOUTH EVERY DAY 09/14/2016 01/24/2017 Inactive clopidogrel 75 mg tablet RxNorm: 814196 TAKE 1 TABLET BY MOUTH EVERY DAY 06/28/2016 12/22/2016 Inactive lisinopril 20 mg tablet RxNorm: 639081 TAKE 1 TABLET DAILY 11/25/2016 Inactive donepezil 10 mg tablet RxNorm: 281621 TAKE 1 TABLET BY MOUTH ONCE DAILY 05/11/2016 11/06/2016 Inactive donepezil 10 mg tablet RxNorm: 229966 TAKE 1 TABLET BY MOUTH ONCE DAILY 04/26/2016 02/28/2017 Inactive Mobic 15 mg tablet RxNorm: 679096 1/2 Tablet(s) daily 201510/15/2016 Inactive citalopram 10 mg tablet RxNorm: 076160 TAKE 1 TABLET BY MOUTH EVERY DAY 04/06/2016 04/25/2016 Inactive cetirizine 10 mg tablet RxNorm: 4863365 Tablet(s) 1 TABLET(S) PO DAILY TO TAKE INSTEAD OF THE CLARITIN 03/30/20162016 Inactive amlodipine 10 mg tablet RxNorm: 238871 TAKE 1 TABLET BY MOUTH EVERY DAY 03/08/2016 01/24/2017 Inactive amlodipine 10 mg tablet RxNorm: 853412 1 Tablet(s) PO daily TAKE 1 TABLET BY MOUTH ONCE DAILY 03/03/2016 03/07/2016 Inactive Requip 0.25 mg tablet RxNorm: 940720 1 Tablet(s) PO BID 201509/13/2016 Inactive Mobic 15 mg tablet RxNorm: 314834 1 Tablet(s) daily not refilled on 02/23/2016 04/18/2016 Inactive cetirizine 10 mg tablet RxNorm: 6459059 1 TABLET(S) PO DAILY TO TAKE INSTEAD OF THE CLARITIN 02/19/2016 03/19/2016 Inactive lisinopril 20 mg tablet RxNorm: 335112 TAKE 1 TABLET DAILY 04/201605/17/2016 Inactive Namenda 10 mg tablet RxNorm: 933503 Tablet(s) TAKE 1 TABLET BY MOUTH TWICE DAILY. 02/17/2016 No Stop Date Active lisinopril 20 mg tablet RxNorm: 684899 TAKE 1 TABLET DAILY 01/24/2017 Inactive cetirizine 10 mg tablet RxNorm: 5140383 1 Tablet(s) PO daily to take instead of the claritin 01/21/2016 02/18/2016 Inactive amlodipine 10 mg tablet RxNorm: 688894 1 Tablet(s) PO daily TAKE 1 TABLET BY MOUTH ONCE DAILY 12/02/2015 03/02/2016 Inactive clopidogrel 75 mg tablet RxNorm: 130873 TAKE 1 TABLET BY MOUTH EVERY DAY 11/25/2015 05/22/2016 Inactive Mobic 15 mg tablet RxNorm: 744993 TAKE(1/2) TABLET DAILY. 03/201602/22/2016 Inactive lisinopril 20 mg tablet RxNorm: 755405 TAKE 1 TABLET DAILY 03/201601/15/2016 Inactive Mobic 15 mg tablet RxNorm: 739872 1/2 Tablet(s) PO daily TAKE (1/2) TABLET DAILY. 11/12/2015 11/16/2015 Inactive citalopram 10 mg tablet RxNorm: 618547 TAKE 1 TABLET BY MOUTH EVERY DAY 10/27/2015 04/05/2016 Inactive Requip 0.25 mg tablet RxNorm: 885163 1 Tablet(s) PO BID 201502/11/2016 Inactive Requip 0.25 mg tablet RxNorm: 915252 1 Tablet(s) PO BID 201510/14/2015 Inactive mirtazapine 15 mg tablet RxNorm: 021951 1 Tablet(s) PO daily 10/01/2016 Inactive donepezil 10 mg tablet RxNorm: 328190 TAKE 1 TABLET DAILY 08/3104/25/2016 Inactive amlodipine 10 mg tablet RxNorm: 372587 1 Tablet(s) PO daily TAKE 1 TABLET BY MOUTH ONCE DAILY 08/18/2015 12/01/2015 Inactive clopidogrel 75 mg tablet RxNorm: 681349 1 Tablet(s) PO daily TAKE 1 TABLET DAILY 05/20/2015 11/24/2015 Inactive Mobic 15 mg tablet RxNorm: 972247 Tablet(s) TAKE (1/2) TABLET DAILY. 04/23/2015 10/19/2015 Inactive lisinopril 20 mg tablet RxNorm: 715276 TAKE 1 TABLET DAILY 11/16/2015 Inactive Mobic 15 mg tablet RxNorm: 880926 TAKE (1/2) TABLET DAILY. 04/22/2015 Inactive sulfamethoxazole 400 mg-trimethoprim 80 mg tablet RxNorm: 062860 1/2 Tablet(s) PO daily 03/11/2015 04/09/2015 Inactive Vesicare 5 mg tablet RxNorm: 694500 1 Tablet(s) PO 03/11/2015 05/09/2015 Inactive Protonix 40 mg tablet,delayed release RxNorm: 152918 1 Tablet(s) PO BID 03/05/2015 09/30/2015 Inactive ok to change from [address] Carlos clopidogrel 75 mg tablet RxNorm: 788210 1 Tablet(s) PO daily TAKE 1 TABLET DAILY 02/20/2015 05/19/2015 Inactive Namenda 10 mg tablet RxNorm: 656884 Tablet(s) TAKE 1 TABLET BY MOUTH TWICE DAILY. 01/22/2015 02/16/2016 Inactive amlodipine 10 mg tablet RxNorm: 152661 TAKE 1 TABLET BY MOUTH ONCE DAILY 01/14/2015 08/17/2015 Inactive donepezil 10 mg tablet RxNorm: 804682 TAKE 1 TABLET DAILY 01/0608/31/2015 Inactive Levsin 0.125 mg tablet RxNorm: 3212385 1 Tablet(s) PO QID as needed FOR ABD PAIN 11/05/2014 12/03/2014 Inactive Mobic 15 mg tablet RxNorm: 404879 1/2 Tablet(s) daily TAKE (1/2) TABLET DAILY. 10/01/2014 04/21/2015 Inactive ciprofloxacin 500 mg tablet RxNorm: 193876 1 Tablet(s) PO BID 09/27/2014 10/01/2014 Inactive Flagyl 500 mg tablet RxNorm: 809267 1 Tablet(s) PO TID 201410/03/2014 Inactive take probiotic BID donepezil 10 mg tablet RxNorm: 763084 1/2 Tablet(s) PO BID 01/05/2015 Inactive lisinopril 20 mg tablet RxNorm: 474164 TAKE 1 TABLET DAILY 04/21/2015 Inactive amlodipine 10 mg tablet RxNorm: 243046 1 Tablet(s) PO daily 12/30/2014 Inactive mirtazapine 15 mg tablet RxNorm: 078667 1 Tablet(s) PO daily 09/07/2015 Inactive donepezil 10 mg tablet RxNorm: 112700 1 Tablet(s) PO daily 09/23/2014 Inactive citalopram 10 mg tablet RxNorm: 661801 1 Tablet(s) PO daily 03/25/2015 Inactive citalopram 10 mg tablet RxNorm: 934077 1 Tablet(s) PO daily 05/201408/27/2014 Inactive citalopram 10 mg tablet RxNorm: 996452 1 Tablet(s) PO daily 05/201408/06/2014 Inactive Flagyl 500 mg tablet RxNorm: 937727 1 Tablet(s) PO TID 201408/01/2014 Inactive take probiotic BID Flagyl 500 mg tablet RxNorm: 430841 1 Tablet(s) PO TID 201408/08/2014 Inactive take probiotic BID tamsulosin ER 0.4 mg capsule,extended release 24 hr RxNorm: 572581 1 Capsule(s) PO QHS 06/06/2014 03/10/2015 Inactive TAKE AT BEDTIME escitalopram 5 mg tablet RxNorm: 625454 1 Tablet(s) PO QPM 08/06/2014 Inactive doxycycline hyclate 100 mg tablet RxNorm: 971474 1 Tablet(s) PO BID 05/31/2014 05/30/2014 Inactive doxycycline hyclate 100 mg tablet RxNorm: 001245 1 Tablet(s) PO BID 05/31/2014 06/06/2014 Inactive please deliver if not picked by 3pm Aricept 5 mg tablet RxNorm: 791985 1 Tablet(s) PO BID 201408/27/2014 Inactive losartan 50 mg tablet RxNorm: 992155 1/2 Tablet(s) PO daily 12/28/2015 Inactive clopidogrel 75 mg tablet RxNorm: 326897 1 Tablet(s) PO daily 05/26/2014 Inactive Mobic 15 mg tablet RxNorm: 872939 TAKE (1/2) TABLET DAILY. 09/30/2014 Inactive clopidogrel 75 mg tablet RxNorm: 321476 TAKE 1 TABLET DAILY 02/19/2015 Inactive Mobic 15 mg tablet RxNorm: 271032 1/2 Tablet(s) PO daily TAKE (1/2) TABLET DAILY. 05/27/2014 05/26/2014 Inactive prednisone 20 mg tablet RxNorm: 957163 1 Tablet(s) PO BID 05/2105/25/2014 Inactive albuterol sulfate 2.5 mg/0.5 mL solution for nebulization RxNorm: 764518 1 inhale INH Q4H as needed 05/21/2014 09/01/2015 Inactive prednisone 20 mg tablet RxNorm: 027899 1 Tablet(s) PO BID 05/2105/20/2014 Inactive cefdinir 300 mg capsule RxNorm: 870136 1 Capsule(s) PO BID 04/201505/26/2014 Inactive Zithromax Z-Dequan 250 mg tablet RxNorm: 949883 1 Tablet(s) PO UD 05/20/2014 05/24/2014 Inactive zpack lorazepam 0.5 mg tablet RxNorm: 006789 1/2 to 1 Tablet(s) PO Q8 PRN as needed 04/30/2014 06/05/2014 Inactive Namenda 10 mg tablet RxNorm: 046438 TAKE 1 TABLET BY MOUTH TWICE DAILY. 04/15/2014 01/21/2015 Inactive Namenda 10 mg tablet RxNorm: 538793 1 Tablet(s) PO BID 201304/14/2014 Inactive losartan 50 mg tablet RxNorm: 879295 1 Tablet(s) PO daily 201305/28/2014 Inactive Protonix 40 mg tablet,delayed release RxNorm: 191770 1 Tablet(s) PO QPM 03/21/2014 06/18/2014 Inactive ok to change from [address] Carlos fluticasone 50 mcg/actuation nasal spray,suspension RxNorm: 018544 1 [place] NASAL BID 03/04/2014 09/29/2014 Inactive Protonix 20 mg tablet,delayed release RxNorm: 151833 1 Tablet(s) PO QPM 02/08/2014 03/20/2014 Inactive fluticasone 50 mcg/actuation nasal spray,suspension RxNorm: 836668 1 [place] NASAL BID 01/30/2014 03/03/2014 Inactive fluticasone 50 mcg/actuation nasal spray,suspension RxNorm: 353309 1 [place] NASAL BID 12/24/2013 01/29/2014 Inactive fluticasone 50 mcg/actuation nasal spray,suspension RxNorm: 980105 1 [place] NASAL BID 11/20/2013 12/23/2013 Inactive doxycycline hyclate 100 mg capsule RxNorm: 8123026 1 Capsule(s) PO BID 10/08/2013 10/17/2013 Inactive doxycycline hyclate 100 mg capsule RxNorm: 1642430 capsule oral 10/08/2013 10/29/2013 Inactive fluticasone 50 mcg/actuation nasal spray,suspension RxNorm: 918215 spray, suspension nasl 10/08/2013 11/19/2013 Inactive fluticasone 50 mcg/actuation nasal spray,suspension RxNorm: 872559 1 [place] NASAL BID Nasal spray- use twice daily, one spray per nostril twice daily, after 30 minutes, rinse out nose with saline spray. 10/08/2013 10/29/2013 Inactive mirtazapine 7.5 mg tablet RxNorm: 257063 1/2 Tablet(s) PO daily 08/30/2013 08/27/2014 Inactive lorazepam 0.5 mg tablet RxNorm: 775452 1/2 Tablet(s) PO Q8 PRN 08/21/2013 04/29/2014 Inactive Aricept 5 mg tablet RxNorm: 364156 Tablet(s) PO TAKE 1 TABLET DAILY 08/21/2013 05/28/2014 Inactive Plavix 75 mg tablet RxNorm: 506233 Tablet(s) PO TAKE 1 TABLET DAILY 05/24/2013 12/04/2014 Inactive clopidogrel 75 mg tablet RxNorm: 198154 tablet oral 05/24/2013 05/26/2014 Inactive Plavix 75 mg tablet RxNorm: 069473 1 Tablet(s) PO daily 201305/23/2013 Inactive meloxicam 15 mg tablet RxNorm: 152066 tablet oral 04/26/2013 03/25/2014 Inactive Mobic 15 mg tablet RxNorm: 517312 Tablet(s) PO TAKE (1/2) TABLET DAILY. 04/26/2013 05/26/2014 Inactive Mobic 15 mg tablet RxNorm: 790103 1/2 Tablet(s) PO daily 04/25/2013 Inactive lisinopril 20 mg tablet RxNorm: 629511 1 Tablet(s) PO 201203/24/2014 Inactive finasteride 5 mg tablet RxNorm: 790540 tablet oral 03/22/2013 09/01/2015 Inactive lisinopril 10 mg tablet RxNorm: 430812 1 Tablet(s) PO daily 01/201304/03/2013 Inactive donepezil 5 mg tablet RxNorm: 306405 tablet oral 02/07/2013 12/24/2013 Inactive Influenza Virus Vaccine 0.5 mL RxNorm: IM 02/06/2013 02/06/2013 Inactive Aricept 5 mg tablet RxNorm: 535281 1 Tablet(s) PO daily 201208/04/2013 Inactive tamsulosin ER 0.4 mg capsule,extended release 24 hr RxNorm: 481807 capsule, extended release 24hr oral 12/21/2012 Inactive Plavix 75 mg tablet RxNorm: 696456 1 Tablet(s) PO daily 201205/03/2013 Inactive lorazepam 0.5 mg tablet RxNorm: 827056 1/2 Tablet(s) PO Q8 PRN 11/14/2012 08/20/2013 Inactive lisinopril 10 mg tablet RxNorm: 674266 1 Tablet(s) PO daily 06/201202/03/2013 Inactive Aricept 5 mg tablet RxNorm: 275881 1 Tablet(s) PO daily 201202/03/2013 Inactive Plavix 75 mg tablet RxNorm: 708118 1 Tablet(s) PO daily 201211/30/2012 Inactive Mobic 15 mg tablet RxNorm: 957839 1/2 Tablet(s) PO daily 04/201204/13/2013 Inactive Namenda 10 mg tablet RxNorm: 429952 1 Tablet(s) PO BID 201104/11/2014 Inactive lorazepam 0.5 mg tablet RxNorm: 950172 1/2 Tablet(s) PO Q8 PRN 02/02/2012 11/13/2012 Inactive lisinopril 10 mg tablet RxNorm: 461334 1 Tablet(s) PO daily 07/21/2012 Inactive lisinopril 10 mg tablet RxNorm: 659349 1/2 Tablet(s) PO daily 12/20/2011 01/23/2012 Inactive Aricept 5 mg tablet RxNorm: 269858 1 Tablet(s) PO daily 201108/06/2012 Inactive Mobic 15 mg tablet RxNorm: 165407 1 Tablet(s) PO daily 201103/19/2012 Inactive Bentyl 10 mg Cap RxNorm: 663458 1 Capsule(s) PO daily one pill daily and every 6 hours if needed for bowel spasms. 06/23/2011 03/20/2012 Inactive amlodipine 5 mg Tab RxNorm: 587472 2 Tablet(s) PO daily 201012/08/2011 Inactive ZOSTAVAX 19,400 unit Sub-Q Soln RxNorm: 1011303 SQ 02/25/2011 02/25/2011 Inactive Pneumovax 23 25 mcg/0.5 mL Injection RxNorm: 250466 Milliliter(s) Inj 02/16/2011 02/16/2011 Inactive Influenza Virus Vaccine 0.5 mL RxNorm: IM 02/09/2011 02/09/2011 Inactive Namenda 10 mg tablet RxNorm: 631602 1 Tablet(s) PO BID 201002/21/2012 Inactive dicyclomine 10 mg capsule RxNorm: 033974 capsule oral 201010/29/2013 Inactive Namenda 5 mg tablet RxNorm: 444366 tablet oral 01/20/2011 12/24/2013 Inactive dicyclomine 20 mg tablet RxNorm: 014685 tablet oral 01/15/2011 10/29/2013 Inactive Flagyl 500 mg Tab RxNorm: 389565 1 Tablet(s) PO TID 201001/06/2011 Inactive Cipro 500 mg Tab RxNorm: 942787 1 Tablet(s) PO BID 201006/23/2011 Inactive Cipro 500 mg Tab RxNorm: 590632 1 Tablet(s) PO BID 201001/06/2011 Inactive Flagyl 500 mg Tab RxNorm: 514225 1 Tablet(s) PO TID 201006/23/2011 Inactive metronidazole 500 mg tablet RxNorm: 931663 tablet oral 201012/24/2013 Inactive sulfamethoxazole 400 mg-trimethoprim 80 mg tablet RxNorm: 329982 tablet oral 12/24/2010 03/10/2015 Inactive mirtazapine 15 mg tablet RxNorm: 720821 tablet oral 11/14/2010 12/24/2013 Inactive lisinopril 10 mg tablet RxNorm: 457199 tablet oral 11/14/2010 12/24/2013 Inactive doxycycline hyclate 100 mg tablet RxNorm: 943611 tablet oral 12/24/2013 Inactive diphenoxylate-atropine 2.5 mg-0.025 mg tablet RxNorm: 4971993 tablet oral 11/03/2010 10/29/2013 Inactive ciprofloxacin 500 mg tablet RxNorm: 074212 tablet oral 201010/29/2013 Inactive aspirin 81 mg Cap, Delayed Release RxNorm: 833297 1 Capsule(s) PO daily No Start Date Active Vitamin D 1,000 unit Tab RxNorm: 037102 1 Tablet(s) PO daily No Start Date Active Senior Vitamin Tab RxNorm: 1 Tablet(s) PO daily No Start Date Active sulfamethoxazole 500 mg Tab RxNorm: 914072 1/2 Tablet(s) PO daily No Start Date 12/24/2013 Inactive Plavix 75 mg Tab RxNorm: 814670 1 Tablet(s) PO daily No Start Date 01/26/2011 Inactive hydrocodone 5 mg-acetaminophen 325 mg tablet RxNorm: 143961 1 Tablet(s) PO Q6 as needed No Start Date 06/05/2014 Inactive Proscar 5 mg Tab RxNorm: 581247 1 Tablet(s) PO daily No Start Date 09/01/2015 Inactive Plavix 75 mg tablet RxNorm: 026190 1 Tablet(s) PO daily No Start Date 07/03/2012 Inactive albuterol sulfate 2.5 mg/0.5 mL solution for nebulization RxNorm: 558584 1 inhale INH Q4H as needed No Start Date 2014 Inactive amlodipine 5 mg Tab RxNorm: 759801 1 Tablet(s) PO daily No Start Date 03/07/2011 Inactive Namenda 5 mg Tab RxNorm: 323664 1 Tablet(s) PO daily No Start Date 06/23/2011 Inactive Allergy Relief (cetirizine) oral RxNorm: 646323 oral No Start Date 12/19/2016 Inactive fluocinonide 0.05 % Ointment RxNorm: 087267 1 TOP BID PRN No Start Date 12/24/2013 Inactive amlodipine 5 mg tablet RxNorm: 793099 1 Tablet(s) PO daily No Start Date 09/01/2014 Inactive lisinopril Oral RxNorm : Oral No Start Date 12/08/2011 Inactive simvastatin 20 mg Tab RxNorm: 900493 1 Tablet(s) PO daily No Start Date 06/06/2014 Inactive Bentyl 20 mg Tab RxNorm: 865001 1 Tablet(s) PO Q6 PRN No Start Date 06/23/[address] Quintero Bentyl 10 mg Cap RxNorm: 321188 1 Capsule(s) PO BID No Start Date 06/22/2011 Inactive Plavix 75 mg Tab RxNorm: 917920 1 Tablet(s) PO every other day No Start Date 08/24/2011 Inactive lorazepam 0.5 mg tablet RxNorm: 115916 1/2 Tablet(s) PO Q8 PRN No Start Date 02/01/2012 Inactive lisinopril 10 mg tablet RxNorm: 742432 1 Tablet(s) PO daily No Start Date 12/19/2011 Inactive Flomax 0.4 mg 24 hr Cap RxNorm: 884047 1 Capsule(s) PO daily No Start Date 05/28/2014 Inactive Aricept 5 mg Tab RxNorm: 705269 1 Tablet(s) PO daily No Start Date 07/13/2011 Inactive Levsin 0.125 mg tablet RxNorm: 3137346 1 Tablet(s) PO QID as needed FOR ABD PAIN No Start Date 11/04/2014 Inactive mirtazapine 7.5 mg tablet RxNorm: 488910 1/2 Tablet(s) PO daily No Start Date 08/29/2013 Inactive Mobic 15 mg Tab RxNorm : 917146 1 Tablet(s) PO daily No Start Date 07/13/2011 Inactive Medication Administered Medication Codes Instructions Start Date Status Kenalog 40 mg/mL suspension for injection RxNorm: 4306975 Milliliter 11/25/2016 No longer Active Influenza Virus Vaccine 0.5 mL RxNorm: 02/06/2013 No longer Active ZOSTAVAX 19,400 unit Sub-Q Soln RxNorm: 2515251 02/25/2011 No longer Active Pneumovax 23 25 mcg/0.5 mL Injection RxNorm: 405652 Milliliter 02/16/2011 No longer Active Influenza Virus [...] abdominal tenderness ICD-10: R10.817 ICD-9: 789.67 01/26/2016 Generalized anxiety disorder ICD-10: F41.1 ICD-9: 300.02 05/06/2015 Encounter for immunization ICD-10: Z23 ICD-9: V03.9 05/06/2015 Mixed hyperlipidemia ICD-10: E78.2 ICD-9: 272.4 05/06/2015 Gastro-esophageal reflux disease without esophagitis ICD-10 : K21.9 ICD-9: 530.81 03/05/2015 Major depressive disorder, single episode, 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 ICD-9: 311 03/05/2015 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 GENERALIZED ANXIETY DISEASE ICD-9: 300.02 12/04/2014 IRRITABLE COLON ICD-9: 564.1 12/04/2014 ESSENTIAL HYPERTENSION ICD-9: 401.9 12/04 Abdominal pain ICD-9: 789.00 09/24/2014 Hyponatremia ICD-9: 276.1 09/24/2014 Osteoarthritis ICD-9: 715.90 09/09/2014 Depression ICD-9: 311 07/26/2014 Urinary frequency ICD-9: 788.41 2014 Dizziness ICD-9: 780.4 06/06/2014 NOCTURIA ICD-9: 788.43 05/23/2014 COUGH ICD-9: 786.2 05/20/2014 ALLERGIC RHINITIS ICD-9: 477.9 2014 Pneumonia ICD-9: 486 05/20/2014 Nasal congestion ICD-9: 478.19 2013 ABNORMAL [...] Lump in the groin ICD-9: 789.30 2011 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 04/19/2011 DIVERTICULOSIS, COLON ICD-9: 562.10 04/19 Laceration of finger, index ICD-9: 883.0 03/08/2011 Need for shingles vaccine ICD-9: V04.89 02/25/2011 VACCIN STREP PNEUMONIAE ICD-9: V03.82 03/2011 Bruising ICD-9: 924.9 02/01/2011 HYDROCELE ICD-9: 603.9 02/01/2011 Testicular pain ICD-9: 608.9 01/27/2011 Arm [...] Tsh Ord6 hTSH II 2.07 uIU/mL 04/11/2017 Uric Acid Body Fluid 459436 URIC ACID- FLUID 4.3 mg/dL 2015 Body Fluid Crystals Source RIGHT ELBOW 02/18/2016 Body Fluid Crystals CRYSTALS, BODY FLUID 2015 Metabolic Ord15 NA 128 mEq/L 02/05/2016 [...] 02/05/2016 Metabolic Ord15 CALCIUM 9.1 mg/dL 02/05/2016 Comp Metabolic Iap475 NA 129 mEq/L 10/08/2015 Comp Metabolic Vxg765 K 4.7 mEq/L 10/08/2015 Comp Metabolic Iss007 CL 98 mEq/L 10/08/2015 Comp Metabolic Rxz513 CO2 28.0 mEq/L 10/08/2015 Comp Metabolic Kij102 ANION GAP 8 10/08/2015 Comp Metabolic Nej361 GLUCOSE 84 mg/dL 10/08/2015 Comp Metabolic Ssf640 Creat 1.3 mg/dL 10/08/2015 Comp Metabolic Klv728 eGFR 56 ml/min/1.73m2 10/08/2015 Comp Metabolic Xgl503 BUN 23 mg/dL 10/08/2015 Comp Metabolic Xts094 B/C Ratio 17.8 Ratio 10/08/2015 Comp Metabolic Din730 CALCIUM 9.3 mg/dL 10/08/2015 Comp Metabolic Wwy581 ALK PHOS 68 U/L 10/08/2015 Comp Metabolic Qtc169 AST(SGOT) 24 U/L 10/08/2015 Comp Metabolic Nbi886 ALT(SGPT) 15 U/L 10/08/2015 Comp Metabolic Llb220 BILI T 0.5 mg/dL 10/08/2015 Comp Metabolic Zbr161 ALBUMIN 4.0 g/dL 10/08/2015 Comp Metabolic Yba757 TPRO 5.9 g/dL 10/08/2015 Comp Metabolic Hvx286 GLOB 1.9 g/dL 10/08/2015 Comp Metabolic Bxd668 A/G Ratio 2.1 Ratio 10/08/2015 Comp Metabolic Koq027 Osmo 262 mOsmo 10/08/2015 Lipid Ord30 CHOL 134 mg/dL 10/08/2015 Lipid Ord30 HDL 56.0 mg/dl 10/08/2015 Lipid Ord30 TRIG 87 mg/dL 10/08/2015 Lipid Ord30 LDL 61 mg/dL 10/08/2015 Lipid Ord30 C/HDL 2.4 Ratio 10/08/2015 Comp Metabolic Zrh909 NA 132 mEq/L 05/07/2015 Comp Metabolic Dqd224 K 4.4 mEq/L 05/07/2015 Comp Metabolic Pdn954 CL 97 mEq/L 05/07/2015 Comp Metabolic Pji270 CO2 30.0 mEq/L 05/07/2015 Comp Metabolic Tzt738 ANION GAP 9 05/07/2015 Comp Metabolic Iop828 GLUCOSE 78 mg/dL 05/07/2015 Comp Metabolic Kjd211 Creat 1.2 mg/dL 05/07/2015 Comp Metabolic Buw769 eGFR 60 ml/min/1.73m2 05/07/2015 Comp Metabolic Gtq183 BUN 25 mg/dL 05/07/2015 Comp Metabolic Oyi654 B/C Ratio 20.3 Ratio 05/07/2015 Comp Metabolic Kxw563 CALCIUM 9.6 mg/dL 05/07/2015 Comp Metabolic Fbv288 ALK PHOS 70 U/L 05/07/2015 Comp Metabolic Xjp598 AST(SGOT) 27 U/L 05/07/2015 Comp Metabolic Loa932 ALT(SGPT) 20 U/L 05/07/2015 Comp Metabolic Rlx393 BILI T 0.4 mg/dL 05/07/2015 Comp Metabolic Jru371 ALBUMIN 4.0 g/dL 05/07/2015 Comp Metabolic Cvt057 TPRO 5.8 g/dL 05/07/2015 Comp Metabolic Ega643 GLOB 1.8 g/dL 05/07/2015 Comp Metabolic Vqq114 A/G Ratio 2.3 Ratio 05/07/2015 Comp Metabolic Mni004 Osmo 268 mOsmo 05/07/2015 Tsh Ord6 hTSH II 4.07 uIU/mL 05/07/2015 Lipid Ord30 CHOL 136 mg/dL 05/07/2015 Lipid [...] With Differential Ord2 RDW 16.2 % 05/07/2015 Tsh Ord6 hTSH II 1.99 uIU/mL 12/10/2014 Comp Metabolic Hso617 NA 134 mEq/L 12/10/2014 Comp Metabolic Vka606 K 4.8 mEq/L 12/10/2014 Comp Metabolic Oep711 CL 101 mEq/L 12/10/2014 Comp Metabolic Dhw085 CO2 30.0 mEq/L 12/10/2014 Comp Metabolic Ukg472 ANION GAP 8 12/10/2014 Comp Metabolic Tar818 GLUCOSE 85 mg/dL 12/10/2014 Comp Metabolic Eup382 Creat 1.2 mg/dL 12/10/2014 Comp Metabolic Rqd574 eGFR 65 ml/min/1.73m2 12/10/2014 Comp Metabolic Edd949 BUN 25 mg/dL 12/10/2014 Comp Metabolic Ppw039 B/C Ratio 21.7 Ratio 12/10/2014 Comp Metabolic Bcz082 CALCIUM 9.5 mg/dL 12/10/2014 Comp Metabolic Fpo947 ALK PHOS 76 U/L 12/10/2014 Comp Metabolic Mrs154 AST(SGOT) 27 U/L 12/10/2014 Comp Metabolic Lti263 ALT(SGPT) 18 U/L 12/10/2014 Comp Metabolic Rlz019 BILI T 0.5 mg/dL 12/10/2014 Comp Metabolic Wqh490 ALBUMIN 4.1 g/dL 12/10/2014 Comp Metabolic Guh014 TPRO 5.7 g/dL 12/10/2014 Comp Metabolic Hxl070 GLOB 1.6 g/dL 12/10/2014 Comp Metabolic Pyg883 A/G Ratio 2.6 Ratio 12/10/2014 Comp Metabolic Ide748 Osmo 272 mOsmo 12/10/2014 B12 Gqv298 B12 1011.00 pg/ml 12/10/2014 Lipid Ord30 CHOL 177 mg/dL 12/10/2014 Lipid Ord30 HDL 53.0 mg/dl 12/10/2014 Lipid Ord30 TRIG 76 mg/dL 12/10/2014 Lipid Ord30 LDL 109 mg/dL 12/10/2014 Lipid Ord30 C/HDL 3.3 Ratio 12/10/2014 Cbc With Differential Ord2 WBC 3.3 [...] With Differential Ord2 RDW 14.3 % 12/10/2014 TSH [id number] TSH 2.094 uIU/ML 02/19/2013 FREE T4 [id number] FREE T4 1.18 NG/DL 02/19/2013 GFR CALC [id number] GFR AA >60 ML/MIN 02/19/2013 GFR CALC 6650458 GFR NON-AA >60 ML/MIN 02/19/2013 CBC 2040142 WBC 4.1 10e9/L 02/19/2013 CBC [id number] RBC 4.39 10e12/L 02/19/2013 CBC 9038380 HGB 14.1 g/dL 02/19/2013 CBC 1030571 HCT DET 41.0 % 02/19/2013 CBC [id number] MCV 93.4 fL 02/19/2013 CBC [id number] MCH 32.1 pg 02/19/2013 CBC 7236577 MCHC 34.4 g/dL 02/19/2013 CBC 2976962 PLT 151 10e9/L 02/19/2013 CBC 2774498 MPV 11.8 fL 02/19/2013 CBC 3238754 YOVANNY % 63.2 % 02/19/2013 CBC 2314539 LY % 22.9 % 02/19/2013 CBC 3916764 MON % 11.5 % 02/19/2013 CBC 2760829 EOS % 2.2 % 02/19/2013 CBC 5748278 BASO % 0.2 % 02/19/2013 CBC 5601638 RDW 13.8 % 02/19/2013 CBC 2974518 ABS YOVANNY 2.59 10e9/L 02/19/2013 CBC 5078800 ABS LYMPH 0.94 10e9/L 02/19/2013 CBC 8336867 ABS MONO 0.47 10e9/L 02/19/2013 CBC 8025927 ABS EOS 0.09 10e9/L 02/19/2013 CBC 8992470 ABS BASO 0.01 10e9/L 02/19/2013 CBC 6885993 RDW-SD 46.0 fL 02/19/2013 CHEM 14 9951454 AST 30 U/L 02/19/2013 CHEM 14 7207287 ALT 19 IU/L 02/19/2013 CHEM 14 8788195 BUN 21 MG/DL 02/19/2013 CHEM 14 0667233 ALBUMIN 4.4 GM/DL 02/19/2013 CHEM 14 2727793 CHLORIDE 94 MMOL/L 02/19/2013 CHEM 14 4571894 BILI TOT 0.5 MG/DL 02/19/2013 CHEM 14 6191071 ALK PHOS 75 U/L 02/19/2013 CHEM 14 9189080 SODIUM 133 MMOL/L 02/19/2013 CHEM 14 1290926 CREATININE 1.07 MG/DL 02/19/2013 CHEM 14 5557470 CALCIUM 9.6 MG/DL 02/19/2013 CHEM 14 0157009 POTASSIUM 4.6 MMOL/L 02/19/2013 CHEM 14 0529220 PROT TOT 6.1 GM/DL 02/19/2013 CHEM 14 3379999 GLUCOSE 94 MG/DL 02/19/2013 CHEM 14 2540321 BICARB 31 MMOL/L 02/19/2013 CHEM 14 0161725 ANION GAP 8 MEQ/L 02/19/2013 UA 43631 Specific [place] 1.015 DateTime(Free Text in Apr ) UA 33591 PH 6 DateTime(Free Text in Aprima) UA 05957 GLUCOSE neg DateTime(Free Text in Aprima) UA 26259 Protein neg DateTime(Free Text in Aprima) UA 48920 Blood neg DateTime(Free Text in Aprima) UA 11006 Bilirubin neg DateTime(Free Text in Aprima) UA 26113 Ketones neg DateTime(Free Text in Aprima) UA 82985 Urobilinogen neg DateTime(Free Text in Aprima) UA 63913 Nitrite neg DateTime(Free Text in Aprima) UA 49042 Leukocytes neg DateTime(Free Text in ) Review [...] clear 01/25/2017 None Full Exam - General 1995 Ears/Nose/Throat oral cavity/pharynx/larynx Overall: no masses 01/25/2017 [...] time 04/26/2016 None Full Exam - General [facility] Psychiatric mood and affect Overall: normal mood [...] affect 10/08/2013 None Full Exam - General 1995 Ears/Nose/Throat oral cavity/pharynx/larynx Oropharynx: erythema 10/08/2013 None [...] accomodation 02/19/2013 None Full Exam - General 1995 [...] 1995 Musculoskeletal spine, ribs and pelvis Overall: good posture 10/16/2012 None Full Exam - General 1995 Musculoskeletal head and neck Overall: head atraumatic 10/16/2012 None Full Exam - General 1995 Musculoskeletal head and neck Overall: cervical spine benign 10/16/2012 None Full Exam - General 1994 Neurologic [...] developed 06/19/2012 None Full Exam - General 1994 Constitutional general appearance Overall: in no acute distress 06/19/2012 None Full Exam - General 1994 Constitutional general appearance Overall: well nourished 06/19/2012 None Full Exam - General 1994 Eyes pupils and irises Overall: pupils equal, round, reactive to light and accomodation 06/19/2012 None Full Exam - General 1994 Ears/Nose/Throat otoscopic exam Overall: external auditory canals clear 06/19/2012 None Full Exam - General 1995 Ears/Nose/Throat otoscopic exam Overall: tympanic membranes clear 06/19/2012 None Full Exam - General 1994 Ears/Nose/Throat [...] sounds 06/19/2012 None Full Exam - General 1995 [...] 1995 Musculoskeletal spine, ribs and pelvis Overall: good [...] tenderness 01/24/2012 None Full Exam - General 1994 [...] 1994 Constitutional general appearance Overall: well developed 01/24/2012 None Full Exam - General 1994 Constitutional general appearance Overall: in no acute distress 01/24/2012 None Full Exam - General 1994 Constitutional general appearance Overall: well nourished 01/24/2012 None Full Exam - General 1994 Eyes pupils and irises Overall: pupils equal, round, reactive to light and accomodation 01/24/2012 None Full Exam - General 1994 [...] benign 06/23/2011 None Full Exam - General 1995 Musculoskeletal [...] time 01/27/2011 None Full Exam - General 1994 Psychiatric orientation/consciousness Overall: oriented to person, place and time 01/26/2011 None Full Exam - General 1994 Integument inspection of skin Location: left arm 01/26/2011 with bruising noted to left AC space and left wrist. Area soft. Nontender. Good radial pulse. Full Exam - General 1995 Constitutional general appearance Overall: well nourished 01/26/2011 [...] distress 01/15/2011 None Full Exam - General 1995 Constitutional general appearance Hygiene/Attention to Grooming: good [...] accomodation 01/15/2011 None Full Exam - General 1995 Ears/Nose/Throat otoscopic exam Overall: external auditory canals clear 01/15/2011 None Full Exam - General 1994 Ears/Nose/Throat otoscopic exam Overall: tympanic membranes clear 01/15/2011 None Full Exam - General 1995 Ears/Nose/Throat lips/teeth/gingiva Overall: benign lips 01/15/2011 None Full Exam - General 1995 Ears/Nose/Throat lips/teeth/gingiva Overall: normal dentition 01/15/2011 None Full Exam - General 1994 Ears/Nose/Throat lips/teeth/gingiva Overall: no masses 01/15/2011 None [...] masses 01/06/2011 None Full Exam - General 1995 Ears/Nose/Throat [...] FLU VACC PRSV FREE INC ANTIG CPT-4: 37867 01/25/2017 THER/PROPH/DIAG INJ SC/IM CPT-4: 98155 11/25/2016 TRIAMCINOLONE ACET INJ NOS CPT-4: J3301 11/25/2016 DRAIN/INJECT JOINT/BURSA CPT-4: 21547 02/17/2016 IMMUNIZATION ADMIN CPT -4: 44225 05/06/2015 PNEUMOCOCCAL VACC 13 TIFFANIE IM Formatting Model/CDA Sections, Assigned to/Celia Minaya SNOMED CT: 72561456 CPT-4: 47266Vebigdl 05/06/2015 ADMIN INFLUENZA VIRUS VAC CPT-4: G0008 02/19/2015 FLU VACC 4 TIFFANIE 3 YRS PLUS IM Formatting Model/CDA Sections, Assigned to SNOMED CT: 93896908 CPT-4: 39531Efbnbse 02/19/2015 URINALYSIS NONAUTO W/O SCOPE CPT-4: 24651 05/23/2014 ADMIN INFLUENZA VIRUS VAC CPT-4: G0008 03/26/2014 FLU VAC NO PRSV 4 TIFFANIE 3 YRS+ Assigned to/Celia Minaya CPT-4: 81121Clpiwfx 03/26/2014 PRESCRIP TRANSMIT VIA ERX SY CPT-4: G8553 04/04/2013 ROUTINE VENIPUNCTURE CPT-4: 42983 02/19/2013 ADMIN INFLUENZA VIRUS VAC CPT-4: G0008 02/06/2013 FLULAVAL VACC, 3 YRS & >, IM CPT-4: Q2036 02/06/2013 [id number] EST. PATIENT, LEVEL IV CPT-4: 93374 06/19/2012 PRESCRIP TRANSMIT VIA ERX SY CPT-4: G8553 06/19/2012 PRESCRIP TRANSMIT VIA ERX SY CPT-4: G8553 03/20/2012 PRESCRIP TRANSMIT VIA ERX SY CPT-4: G8553 06/23/2011 IMMUNIZATION ADMIN CPT -4: 48645 02/25/2011 ZOSTER VACC SC (No charge, patient supplied vaccine) CPT-4: 42470FW 02/25/2011 ADMIN PNEUMOCOCCAL VACCINE SNOMED CT: 13749187 CPT-4: G0009 02/16/2011 Pneumococcal Polysaccharide Vaccine, 23-Valent, Ad CPT-4: 37336 02/16/2011 ADMIN INFLUENZA VIRUS VAC CPT-4: G0008 02/09/2011 FLULAVAL VACC, 3 YRS & >, IM CPT-4: Q2036 02/09/2011 PRESCRIP TRANSMIT VIA ERX SY CPT-4: G8553 02/01/2011 URINALYSIS NONAUTO W/O SCOPE CPT-4: 17368 01/27/2011 Vital Signs Date Vital 03/21/2017 Blood Pressure 1: 128/66 Code : 8480-6 BMI: 20.8 Code : 86704-0 Heart Rate 1 : 61 bpm Height: 5'9" SpO2: 98% Weight: 141 lbs 03/08/2017 Blood Pressure 1: 134/68 Code : 8480-6 BMI: 20.4 Code : 28775-5 Heart Rate 1 : 56 bpm Height: 5'9" SpO2: 99% Weight: 138 lbs 01/25/2017 Blood Pressure 1: 98/62 Code : 8480-6 BMI: 20.6 Code : 80906-3 Heart Rate 1 : 71 bpm Height: 5'9" SpO2: 97% Weight: 139 lbs 8 oz 12/20/2016 Blood Pressure 1: 120/68 Code : 8480-6 BMI: 20.4 Code : 85661-2 Heart Rate 1 : 70 bpm Height: [...] Code : 8480-6 BMI: 20.7 Code : 12981-1 Heart Rate 1 : 74 bpm Height: 5'9" SpO2: 95% Weight: 140 lbs 08/23/2016 Blood Pressure 1: 118/68 Code : 8480-6 BMI: 20.8 Code : 92205-7 Heart Rate 1 : 54 bpm Height: 5'9" SpO2: 97% Weight: 141 lbs 04/26/2016 Blood Pressure 1: 108/64 Code : 8480-6 BMI: 21.0 Code : 32758-4 Heart Rate 1 : 62 bpm Height: 5'9" SpO2: 95% Weight: 142 lbs 02/17/2016 Blood Pressure 1: 138/80 Code : 8480-6 BMI: 20.2 Code : 92539-5 Heart Rate 1 : 76 bpm Height: 5'9" SpO2: 97% Weight: 137 lbs 02/09/2016 Blood Pressure 1: 140/76 Code : 8480-6 BMI: 20.2 Code : 21443-1 Heart Rate 1 : 72 bpm Height: 5'9" SpO2: 96% Weight: 137 lbs 02/03/2016 Blood Pressure 1: 136/80 Code : 8480-6 BMI: 20.7 Code : 66429-3 Heart Rate 1 : 86 bpm Height: 5'9" SpO2: 96% Weight: 140 lbs 01/26/2016 Blood Pressure 1: 144/78 Code : 8480-6 BMI: 20.7 Code : 47956-0 Heart Rate 1 : 73 bpm Height: 5'9" SpO2: 97% Temperature: 37.0 (C) / 98.6 (F) Weight: 140 lbs 01/21/2016 Blood Pressure 1: 116/62 Code : 8480-6 BMI: 20.4 Code : 13874-0 Heart Rate 1 : 66 bpm Height: 5'9" SpO2: 97% Weight: 138 lbs 12/29/2015 Blood Pressure 1: 130/74 Code : 8480-6 BMI: 20.4 Code : 27667-2 Heart Rate 1 : 51 bpm Height: 5'9" SpO2: 98% Weight: 138 lbs 09/02/2015 Blood Pressure 1: 126/60 Code : 8480-6 BMI: 22.3 Code : 22263-3 Heart Rate 1 : 55 bpm Height: 5'9" SpO2: 96% Weight: 151 lbs 05/06/2015 Blood Pressure 1: 132/72 Code : 8480-6 BMI: 21.0 Code : 79808-1 Heart Rate 1 : 63 bpm Height: 5'9" SpO2: 97% Weight: 142 lbs 03/05/2015 Blood Pressure 1: 130/68 Code : 8480-6 BMI: 21.0 Code : 01734-5 Heart Rate 1 : 61 bpm Height: 5'9" SpO2: 96% Weight: 142 lbs 12/04/2014 Blood Pressure 1: 122/64 Code : 8480-6 BMI: 21.3 Code : 48791-9 Heart Rate 1 : 72 bpm Height: 5'9" Weight: 144 lbs 09/24/2014 Blood Pressure 1: 142/80 Code : 8480-6 BMI: 20.4 Code : 74943-2 Heart Rate 1 : 80 bpm Height: 5'9" Weight: 138 lbs 09/09/2014 Blood Pressure 1: 122/74 Code : 8480-6 BMI: 20.5 Code : 84185-4 Heart Rate 1 : 64 bpm Height: 5'9" Weight: 139 lbs 07/26/2014 Blood Pressure 1: 136/82 Code : 8480-6 BMI: 20.4 Code : 96562-4 Heart Rate 1 : 87 bpm Height: 5'9" SpO2: 92% Weight: 138 lbs 07/10/2014 Blood Pressure 1: 130/74 Code : 8480-6 BMI: 21.1 Code : 24971-7 Heart Rate 1 : 64 bpm Height: 5'9" Weight: 143 lbs 06/06/2014 Blood Pressure 1: 142/88 Code : 8480-6 BMI: 20.4 Code : 69465-5 Heart Rate 1 : 68 bpm Height: 5'9" Weight: 138 lbs 05/29/2014 Blood Pressure 1: 108/72 Code : 8480-6 BMI: 20.5 Code : 95422-3 Heart Rate 1 : 60 bpm Height: 5'9" Weight: 139 lbs 05/20/2014 Blood Pressure 1: 140/72 Code : 8480-6 BMI: 21.6 Code : 06396-4 Heart Rate 1 : 60 bpm Height: 5'9" SpO2: 98% Temperature: 36.2 (C) / 97.2 (F) Weight: 146 lbs 03/25/2014 Blood Pressure 1: 128/60 Code : 8480-6 BMI: 21.4 Code : 36595-4 Heart Rate 1 : 62 bpm Height: 5'9" Weight: 145 lbs 02/08/2014 Blood Pressure 1: 136/82 Code : 8480-6 BMI: 21.3 Code : 97808-6 Heart Rate 1 : 68 bpm Height: 5'9" Weight: 144 lbs 12/24/2013 Blood Pressure 1: 122/76 Code : 8480-6 BMI: 21.6 Code : 42846-6 Heart Rate 1 : 58 bpm Height: 5'9" Weight: 146 lbs 11/20/2013 Blood Pressure 1: 112/62 Code : 8480-6 BMI: 20.7 Code : 33446-4 Heart Rate 1 : 56 bpm Height: 5'9" Weight: 140 lbs 10/30/2013 Blood Pressure 1: 130/68 Code : 8480-6 BMI: 20.1 Code : 70733-1 Heart Rate 1 : 68 bpm Height: 5'9" SpO2: 96% Weight: 136 lbs 10/08/2013 Blood Pressure 1: 128/72 Code : 8480-6 BMI: 20.8 Code : 98005-2 Heart Rate 1 : 60 bpm Height: 5'9" Temperature: 36.6 (C) / 97.8 (F) Weight: 141 lbs 06/18/2013 Blood Pressure 1: 124/78 Code : 8480-6 BMI: 20.8 Code : 27272-4 Heart Rate 1 : 64 bpm Height: 5'9" Weight: 141 lbs 04/04/2013 Blood Pressure 1: 138/60 Code : 8480-6 BMI: 20.8 Code : 08743-6 Heart Rate 1 : 56 bpm Height: 5'9" Weight: 141 lbs 02/19/2013 Blood Pressure 1: 152/74 Code : 8480-6 BMI: 21.0 Code : 63332-0 Heart Rate 1 : 60 bpm Height: 5'9" Weight: 142 lbs 10/16/2012 Blood Pressure 1: 122/70 Code : 8480-6 BMI: 20.8 Code : 59086-3 Heart Rate 1 : 64 bpm Height: 5'9" Weight: 141 lbs 06/19/2012 Blood Pressure 1: 120/72 Code : 8480-6 BMI: 21.1 Code : 73423-2 Heart Rate 1 : 60 bpm Height: 5'9" Weight: 143 lbs 03/20/2012 Blood Pressure 1: 114/76 Code : 8480-6 Heart Rate 1: 60 bpm Respiratory Rate : 16 bpm Weight: 143 lbs 01/24/2012 Blood Pressure 1: 134/70 Code : 8480-6 Heart Rate 1: 64 bpm Weight: 143 lbs 12/20/2011 Blood Pressure 1: 98/72 Code : 8480-6 BMI: 21.1 Code : 23564-2 Heart Rate 1 : 60 bpm Height: 5'9" Respiratory Rate: 16 bpm Weight: 143 lbs 12/09/2011 Blood Pressure 1: 110/60 Code : 8480-6 Heart Rate 1: 66 bpm SpO2: 98% Weight: 141 lbs 08/25/2011 Blood Pressure 1: 112/70 Code : 8480-6 BMI: 20.8 Code : 30870-5 Heart Rate 1 : 54 bpm Height: 5'9" Respiratory Rate: 16 bpm Weight: 141 lbs 06/23/2011 Blood Pressure 1: 126/64 Code : 8480-6 Heart Rate 1: 60 bpm Respiratory Rate : 16 bpm Weight: 142 lbs 04/19/2011 Blood Pressure 1: 124/64 Code : 8480-6 BMI: 21.1 Code : 45039-3 Heart Rate 1 : 64 bpm Height: 5'9" Respiratory Rate: 16 bpm Weight: 143 lbs 03/23/2011 Blood Pressure 1: 137/71 Code : 8480-6 Heart Rate 1: 57 bpm 03/08/2011 Blood Pressure 1: 154/70 Code : 8480-6 BMI: 20.8 Code : 58304-6 Heart Rate 1 : 60 bpm Height: 5'9" Respiratory Rate: 16 bpm Weight: 141 lbs 03/01/2011 Blood Pressure 1: 178/80 Code : 8480-6 Blood Pressure 2: 168/70 Code: 8480-6 BMI: 24.1 Code: 10890-6 Heart Rate 1: 60 bpm Height: 5'9" Respiratory Rate: 16 bpm Weight: 163 lbs 02/01/2011 Blood Pressure 1: 162/84 Code : 8480-6 Heart Rate 1: 60 bpm Respiratory Rate : 16 bpm Weight: 144 lbs 01/27/2011 Blood Pressure 1: 138/54 Code : 8480-6 BMI: 21.1 Code : 86327-8 Heart Rate 1 : 68 bpm Height: 5'9" Respiratory Rate: 16 bpm Weight: 143 lbs 01/26/2011 Blood Pressure 1: 148/86 Code : 8480-6 BMI: 21.3 Code : 97907-8 Heart Rate 1 : 74 bpm Height: 5'9" Weight: 144 lbs 01/15/2011 Blood Pressure 1: 136/76 Code : 8480-6 BMI: 20.5 Code : 19309-4 Heart Rate 1 : 70 bpm Height: 5'10" Weight: 141 lbs 01/06/2011 Blood Pressure 1: 148/72 Code : 8480-6 BMI: 20.2 Code : 59117-1 Heart Rate 1 : 72 bpm Height: [...] onset 01/06/2011 October 27-November 08; also December 15 abdominal pain Radiating the inguinal area 01/06/2011 [...] data Encounters Encounter Performer Location Codes Date ([id number]) 57023 EST. PATIENT, LEVEL III Diagnosis: Essential (primary) hypertension[ICD10: I10] Ale Carlos MD, [facility] CPT-4: 20318 03/21/2017 49831 EST. PATIENT, LEVEL III Diagnosis: Other allergic rhinitis[ICD10: J30.89] Nelly Carlos MD, [facility] CPT-4: 15105 03/08/2017 ([id number]) 77056 EST. PATIENT, LEVEL III Diagnosis: Encounter for immunization[ICD10: Z23] Diagnosis: Other hypotension[ICD10: I95.89] Ale Carlos MD, [facility] CPT-4: 64749 01/25/2017 ([id number]) 78406 EST. PATIENT, LEVEL III Diagnosis: Essential (primary) hypertension[ICD10: I10] Diagnosis: Acute recurrent maxillary sinusitis[ICD10: J01.01] Ale Carlos MD, [facility] CPT-4: 39059 12/20/2016 ([id number]) 32218 EST. PATIENT, LEVEL III Diagnosis: Acute recurrent ethmoidal sinusitis[ICD10: J01.21] Ale Carlos MD, [facility] CPT-4: 45906 12/01/2016 ([id number]) 87187 EST. PATIENT, LEVEL III Diagnosis: Bronchitis, not specified as acute or chronic[ICD10: J40] Diagnosis: Cough[ICD10: R05] Ale Carlos MD, [facility] CPT-4: 99794 11/25/2016 ([id number]) 17697 EST. PATIENT, LEVEL III Diagnosis: Cough[ICD10: R05] Diagnosis: Bronchitis, not specified as acute or chronic[ICD10: J40] Diagnosis: Candidal esophagitis[ICD10: B37.81] Ale Carlos MD, [facility] CPT-4: 77116 11/18/2016 ([id number]) 82156 EST. PATIENT, LEVEL IV Diagnosis: Essential (primary) hypertension[ICD10: I10] Diagnosis: Mild cognitive impairment, so stated[ICD10: G31.84] Ale Carlos MD, [facility] CPT-4: 01367 08/23/2016 ([id number]) 01877 EST. PATIENT, LEVEL III Diagnosis: Essential (primary) hypertension[ICD10: I10] Ale Carlos MD, [facility] CPT-4: 17797 04/26/2016 ([id number]) Miscellaneous no charge Diagnosis: Olecranon bursitis, right elbow[ICD10: M70.21] Nelly Carlos MD, [facility] CPT-4: 51467 02/09/2016 ([id number]) 03378 EST. PATIENT, LEVEL III Diagnosis: Olecranon bursitis, right elbow[ICD10: M70.21] Nelly Carlos MD, [facility] CPT-4: 39972 02/03/2016 ([id number]) 34627 EST. PATIENT, LEVEL III Diagnosis: Generalized abdominal tenderness[ICD10: R10.817] Ale Carlos MD, [facility] CPT-4: 83592 01/26/2016 10141 EST. PATIENT, LEVEL IV Diagnosis: Other allergic rhinitis[ICD10: J30.89] Ruchi Carlos MD, [facility] CPT-4: 49556 01/21/2016 ([id number]) 24629 EST. PATIENT, LEVEL IV Diagnosis: Essential (primary) hypertension[ICD10: I10] Diagnosis: Hypo-osmolality and hyponatremia[ICD10: E87.1] Ale Carlos MD, [facility] CPT-4: 09681 12/29/2015 ([id number]) 30991 EST. PATIENT, LEVEL IV Diagnosis: Essential (primary) hypertension[ICD10: I10] Diagnosis: Mild cognitive impairment, so stated[ICD10: G31.84] Ale Carlos MD, [facility] CPT-4: 55387 09/02/2015 ([id number] 91037 EST. PATIENT, LEVEL IV Diagnosis: Mixed hyperlipidemia[ICD10: E78.2] Diagnosis: Generalized anxiety disorder[ICD10: F41.1] Diagnosis: Mild cognitive impairment, so stated[ICD10: G31.84] Diagnosis: Essential (primary) hypertension[ICD10: I10] Diagnosis: Encounter for immunization[ICD10: Z23] Ale Carlos MD, [facility] CPT-4: 16194 05/06/2015 ([id number]) 42495 EST. 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 PATIENT, LEVEL IV Diagnosis: ESSENTIAL HYPERTENSION[ICD9: 401.9] Diagnosis: GENERALIZED ANXIETY DISEASE[ICD9: 300.02] Diagnosis: MILD COGNITIVE IMPAIREMT[ICD9: 331.83] Diagnosis: IRRITABLE COLON[ICD9: 564.1] Ale Carlos MD, [facility] CPT- 4: 58712 12/04/2014 ([id number]) 38065 EST. PATIENT, LEVEL IV Diagnosis: Abdominal pain[ICD9: 789.00] Diagnosis: GENERALIZED ANXIETY DISEASE[ICD9: 300.02] Diagnosis: Hyponatremia[ICD9: 276.1] Diagnosis: ESSENTIAL HYPERTENSION[ICD9: 401.9] [facility] CPT-4: 14177 09/24/2014 ([id number]) 85384 EST. PATIENT, LEVEL IV Diagnosis: ESSENTIAL HYPERTENSION[ICD9: 401.9] Diagnosis: Osteoarthritis[ICD9: 715.90] Diagnosis: Mild cognitive impairment with memory loss[ICD9: 331.83] Ale Carlos MD, [facility] CPT-4: 98999 09/09/2014 ([id number]) 25197 EST. PATIENT, LEVEL III Diagnosis: GENERALIZED ANXIETY DISEASE[ICD9: 300.02] Diagnosis: Depression[ICD9: 311] Ale Carlos MD [facility] CPT-4: 07975 07/26/2014 ([id number]) 58749 EST. PATIENT, LEVEL IV Diagnosis: ESSENTIAL HYPERTENSION[ICD9: 401.9] Diagnosis: GENERALIZED ANXIETY DISEASE[ICD9: 300.02] Diagnosis: MILD COGNITIVE IMPAIREMT[ICD9: 331.83] Ale Carlos MD [facility] CPT-4: 33132 07/10/2014 ([id number]) 37357 EST. PATIENT, LEVEL IV Diagnosis: Dizziness[ICD9: 780.4] Diagnosis: GENERALIZED ANXIETY DISEASE[ICD9: 300.02] Diagnosis: Depression[ICD9: 311] Diagnosis: ESSENTIAL HYPERTENSION[ICD9: 401.9] Diagnosis: Urinary frequency[ICD9: 788.41] Ale Carlos MD [facility] CPT- 4: 45196 06/06/2014 ([id number]) 22144 EST. PATIENT, LEVEL IV Diagnosis: ESSENTIAL HYPERTENSION[ICD9: 401.9] Diagnosis: GENERALIZED ANXIETY DISEASE[ICD9: 300.02] Diagnosis: Mild cognitive impairment with memory loss[ICD9: 331.83] Ale Carlos MD, [facility] CPT-4: 65206 05/29/2014 ([id number]) 71718 EST. PATIENT, LEVEL IV Diagnosis: Pneumonia[ICD9: 486] Diagnosis: COUGH[ICD9: 786.2] Diagnosis: Hyponatremia[ICD9: 276.1] Diagnosis: ALLERGIC RHINITIS[ICD9: 477.9] Ale Carlos MD, [facility] CPT- 4: 71669 05/20/2014 ([id number]) 13233 EST. PATIENT, LEVEL III Diagnosis: ESSENTIAL HYPERTENSION[ICD9: 401.9] Diagnosis: Cough[ICD9: 786.2] Ale Carlos MD, [facility] CPT-4: 77958 03/25/2014 ([id number]) 48862 EST. PATIENT, LEVEL III Diagnosis: COUGH[ICD9: 786.2] Diagnosis: ALLERGIC RHINITIS[ICD9: 477.9] Nelly Carlos MD, [facility] CPT-4: 76806 02/08/2014 18950 12817 EST. PATIENT, LEVEL III Diagnosis: ESSENTIAL HYPERTENSION[ICD9: 401.9] Diagnosis: Nasal congestion[ICD9: 478.19] Ale Carlos MD [facility] CPT- 4: 27770 12/24/2013 ([id number]) 97503 EST. PATIENT, LEVEL III Diagnosis: Seasonal allergies[ICD9: 477.9] Diagnosis: Nasal congestion[ICD9: 478.19] Diagnosis: ABNORMAL LOSS OF WEIGHT[ICD9: 783.21] Ale Carlos MD [facility] CPT-4: 75055 11/20/2013 ([id number]) 00182 EST. PATIENT, LEVEL III Diagnosis: ABNORMAL LOSS OF WEIGHT[ICD9: 783.21] Diagnosis: MALAISE AND FATIGUE[ICD9: 780.79] Diagnosis: Hyponatremia[ICD9: 276.1] Nelly Carlos MD [facility] CPT-4: 15263 10/30/2013 ([id number]) 61798 EST. PATIENT, LEVEL III Diagnosis: Acute maxillary sinusitis[ICD9: 461.0] Diagnosis: COUGH[ICD9: 786.2] Ale Carlos MD [facility] CPT-4: 16195 10/08/2013 ([id number]) 49707 EST. PATIENT, LEVEL IV Diagnosis: ESSENTIAL HYPERTENSION[SNOMED: 61001585] Diagnosis: GENERALIZED ANXIETY DISEASE[ICD9: 300.02] Diagnosis: OSTEOARTH NOS-UNSPEC[ICD9: 715.90] Diagnosis: Coronary artery disease[ICD9: 414.00] Ale Carlos MD, [facility] CPT-4: 21454 06/18/2013 41289 81600 EST. PATIENT, LEVEL III Diagnosis: ESSENTIAL HYPERTENSION[SNOMED: 17175029] Ale Carlos MD [facility] CPT-4: 18436 04/04/2013 67448 64440 EST. PATIENT, LEVEL IV Diagnosis: ESSENTIAL HYPERTENSION[SNOMED: 70361766] Diagnosis: Leukopenia[ICD9: 288.50] Diagnosis: Encounter for long-term (current) use of other medications[ICD9: V58.69] Ale Carlos MD, [facility] CPT-4: 88112 2012 ([id number]) 14022 EST. PATIENT, LEVEL IV Diagnosis: ESSENTIAL HYPERTENSION[SNOMED: 38112679] Diagnosis: MILD COGNITIVE IMPAIREMT[ICD9: 331.83] Ale Carlos MD, [facility] CPT-4: 53954 10/16/2012 ([id number]) 01737 EST. PATIENT, LEVEL IV Diagnosis: ESSENTIAL HYPERTENSION[SNOMED: 36408799] Diagnosis: GENERALIZED ANXIETY DISEASE[ICD9: 300.02] Diagnosis: IRRITABLE COLON[ICD9: 564.1] Ale Carlos MD, [facility] CPT- 4: 55093 03/20/2012 02195 EST. PATIENT, LEVEL IV Diagnosis: ESSENTIAL HYPERTENSION[SNOMED: 29798087] Diagnosis: Osteoarthritis[ICD9: 715.90] Diagnosis: HYPERLIPIDEMIA[ICD9: 272.4] Ale Carlos MD, [facility] CPT- 4: 29205 01/24/2012 26391 EST. PATIENT, LEVEL IV Diagnosis: ESSENTIAL HYPERTENSION[SNOMED: 58495075] Diagnosis: BPH W URINARY OBS/LUTS[ICD9: 600.01] Ale Carlos MD, [facility] CPT-4: 26357 12/20/2011 ([id number]) 39571 EST. PATIENT, LEVEL III Diagnosis: Lump in the groin[ICD9: 789.30] Ale Carlos MD, [facility] CPT- 4: 28223 12/09/2011 ([id number]) 48189 EST. PATIENT, LEVEL IV Diagnosis: ESSENTIAL HYPERTENSION[SNOMED: 02416480] Diagnosis: Mild cognitive impairment[ICD9: 331.83] Ale Carlos MD, [facility] CPT-4: 42780 08/25/2011 ([id number]) 72483 EST. PATIENT, LEVEL IV Diagnosis: ESSENTIAL HYPERTENSION[SNOMED: 81586486] Diagnosis: GENERALIZED ANXIETY DISEASE[ICD9: 300.02] Diagnosis: MILD COGNITIVE IMPAIREMT[ICD9: 331.83] Diagnosis: IRRITABLE COLON[ICD9: 564.1] Ale Carlos MD, [facility] CPT- 4: 77374 06/23/2011 ([id number]) 44738 EST. 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 PATIENT, LEVEL I Diagnosis: ESSENTIAL HYPERTENSION[SNOMED: 56077489] Ale Carlos MD, [facility] CPT-4: 51335 03/23/2011 [id number] EST. PATIENT, LEVEL III Diagnosis: ESSENTIAL HYPERTENSION[SNOMED: 05563740] Diagnosis: Laceration of finger, index[ICD9: 883.0] Ale Carlos MD, [facility] CPT-4: 89453 03/08/2011 30336 EST. PATIENT, LEVEL III Diagnosis: ESSENTIAL HYPERTENSION[SNOMED: 01385335] Diagnosis: Irritable bowel syndrome (IBS)[ICD9: 564.1] Ale Carlos MD, [facility] CPT-4: 32284 03/01/2011 34840 EST. PATIENT, LEVEL IV Diagnosis: Mild cognitive impairment with memory loss[ICD9: 331.83] Diagnosis: GENERALIZED ANXIETY DISEASE[ICD9: 300.02] Diagnosis: Bruising[ICD9: 924.9] Diagnosis: HYDROCELE[ICD9: 603.9] Ale Carlos MD, [facility] CPT-4: 38266 02/01/2011 79726 EST. PATIENT, LEVEL III Diagnosis: Testicular pain[ICD9: 608.9] Diagnosis: GENERALIZED ANXIETY DISEASE[ICD9: 300.02] Nelly Carlos MD, [facility] CPT-4: 90803 01/27/2011 80858 EST. PATIENT, LEVEL III Diagnosis: Arm bruise[ICD9: 923.9] Nelly Carlos MD, [facility] CPT-4: 35867 01/26/2011 OFFICE VISIT, NEW - LEVEL 4 Diagnosis: DIARRHEA[ICD9: 787.91] Diagnosis: Elevated liver function tests[ICD9: 790.6] Diagnosis: Abdominal discomfort[ICD9: 789.00] Ale Carlos MD, [facility] CPT-4: 49904 01/06/2011 Plan of Care Planned Activity Notes Codes Status Date Visit Plan: Hypertension - well controlled - continue with current medications, continue with no added salt diet. Pt has been encouraged to exercise daily. The pt has been advised to call the office if there are any acute concerns about change in blood pressure readings at home. 03/21/2017 Appointment: Ale Carlos WPtel: [phone] [facility] (30 min) Complex 03/21/2017 Patient Education: [...] allergy spray. 03/08/2017 Appointment: Nelly Keen WPtel: [phone] [phone] (30 min) Complex 03/08/2017 Patient Education: Patient [...] flu shot 01/25/2017 Appointment: Ale Carlos WPtel: [phone] [facility] (30 min) Complex 01/25/2017 Patient Education: [...] not improving. 12/20/2016 Appointment: Ale Carlos WPtel: [facility]4 [facility] (30 min) Complex 12/20/2016 Patient Education: Patient Medication Summary Completed 12/20/2016 Patient Education: Hypertension Completed 12/20/2016 Appointment: Ruchi Agee WPtel: [facility]4 [facility] [place] [address] - Annual Wellness Visit 12/03/2016 Visit Plan: [...] acutely worsen. 11/25/2016 Appointment: Ale Carlos WPtel: [facility]1 [address] (15 min) Moderate 11/25/2016 Patient Education: [...] have thrush. 11/18/2016 Appointment: Ale Carlos WPtel: [facility]7 [facility] (15 min) Moderate 11/18/2016 Patient Education: Patient [...] and namenda. labs to be done from [facility] 08/23/2016 App[facility]ment: [phone] [place] (30 min) Complex 08/23/2016 Patient Education: Patient [...] at home. 04/26/2016 Appointment: Ale [facility]Ptel: [phone] [place] (30 min) Complex 04/26/2016 Patient Education: Patient Medication Summary Completed 04/26/2016 Visit Plan: Joint effusion - recommended drainage and referral to orthopedic surgeon for surgical debridement of bursa 02/17/2016 Appointment: Ale [facility]Ptel: [phone] [place] (30 min) Complex 02/17/2016 Patient Education: Patient Medication Summary Completed 02/17/2016 Visit Plan: Bursitis-right elbow-drained today in the office-increase anti inflammatories for the next 5 days as directed-call if symptoms do not resolve, swelling returns or new symptoms develop-patient verbalized understanding of plan. 02/09/2016 Appointment: N[facility] Keen [facility]el: [phone] [place] (30 min) Complex 02/09/2016 Patient Education: Patient Medication Summary Completed 02/09/2016 Patient Education: Patient Medication Summary Completed 02/05/2016 Care Plan: Metabolic Pending 02/05/2016 Visit Plan: Bursitis-right elbow-drained today in the office-increase anti inflammatories for the next 5 days as directed-call if symptoms do not resolve, swelling returns or new symptoms develop-patient verbalized understanding of plan. 02/03/2016 Appointment: Nelly Keen WPtel: [phone] [place] (30 min) Complex 02/03/2016 Patient Education: Patient Medication Summary Completed 02/03/2016 Patient Education: Patient Medication Summary Completed 01/30/2016 Care Plan: Metabolic Due on Pending 01/30/2016 Visit Plan: Abdominal pain - nausea - Pt to have IV fluids at hospital 01/26/2016 Appointment: Ale Carlos WPtel: [phone] [facility] (30 min) Complex 01/26/2016 Patient Education: [...] allergy spray. 01/21/2016 Appointment: Nelly Keen WPtel: [phone] [phone] (30 min) Complex 01/21/2016 Patient Education: Patient [...] of treatment. 09/02/2015 Appointment: Ale [facility]Ptel: [phone] (15 min) Moderate 09/02/2015 Patient Education: Patient [...] injection today 05/06/2015 Appointment: Ale [facility]Ptel: [phone] [facility] (15 min) Moderate 05/06/2015 Patient Education: Patient Medication Summary Completed 05/06/2015 Patient Education: Hypertension Completed 05/06/2015 Care Plan: COMPLETE CBC AUTOMATED LOINC : 10818-0 Ordered 05/06/2015 Visit Plan: Hypertension - well [...] medications. 03/05/2015 Appointment: Ale Carlos WPtel: [phone] [place] (30 min) Complex 03/05/2015 Patient Education: Patient [...] -has improved. 12/04/2014 Appointment: Ale Carlos WPtel: [phone] Follow up 12/04/2014 Patient Education: Patient Medication [...] Care Plan: CT ABD & PELV 1/> [facility] : [address]-4 Ordered 09/24/2014 Visit Plan: Hypertension - well [...] THAT HE SHOULD NOT BE DRIVING TO [facility] 07/26/2014 Appointment: Sick 07/26/2014 Appointment: Sick 07/26/2014 [...] medication list. 07/10/2014 Appointment: Ale Carlos WPtel: [facility]5 [facility] Follow up 07/10/2014 Patient Education: Patient Medication Summary Completed 07/10/2014 Patient Education: Hypertension Completed 07/10/2014 Appointment: Ale Carlos WPtel: [phone] [place] Follow up 06/20/2014 Appointment: Ale Carlso WPtel: [phone] [place] Follow up 06/10/2014 Visit Plan: Anxiety and [...] in blood pressure readings at home. Urinary ueljeicfk-LSB-zwjsqc flomax to bedtime Dizziness-stop hydrocodone and ativan [...] SIMVASTATIN X 3 WEEKS 05/29/2014 Appointment: Ale aCrlos WPtel: [facility]5 [facility] [facility] 05/29/2014 Patient Education: Patient Medication Summary Completed 05/29/2014 Patient Education: Hypertension Completed 05/29/2014 Appointment: Ale Carlos WPtel: [facility]5 [facility] Lab Draw 05/23/2014 Patient Education: Patient Medication Summary Completed 05/23/2014 Visit Plan: Pneumonia - Pt has been diagnosed with pneumonia by physical exam. A chest xray has been ordered as have antibiotics. The pt is aware of the diagnosis and the need for acute treatment of this illness. Mjlxjldgu-pursw-psfhatg flonase nasal spray Hyponatremia-increase gatorade as directed 05/20/2014 Visit Plan: Pneumonia - Pt has been diagnosed with pneumonia by physical exam. A chest xray has been ordered as have antibiotics. The pt is aware of the diagnosis and the need for acute treatment of this illness. Ytmyythwd-xyfkm-xkgkdxs flonase nasal spray Hyponatremia-increase gatorade as directed ADDENDUM: RECOMMEND PATIENT START ON ALBUTEROL NEBULIZER TREATMENTS EVERY 4 HOURS NEEDED FOR SHORTNESS OF BREATH/WHEEZING. DX SECONDARY PNEUMONIA FROM INFLUENZA, COUGH 05/20/2014 Patient Education: Patient Medication Summary Completed 05/20/2014 Appointment: Ale Carlos WPtel: [phone] Injection 03/26/2014 Patient Education: Patient Medication Summary [...] Dr. Merlos. 03/25/2014 Appointment: Ale Carlos WPtel: [phone] [facility] Follow up 03/25/2014 Patient Education: Patient Medication Summary Completed 03/25/2014 Patient Education: Hypertension Completed 03/25/2014 Visit Plan: Uefot-valegbwwl-pxapsfx laryngeal reflux-RX for protonix (patient is on [...] at home. 12/24/2013 Appointment: Ale Carlos WPtel: [phone] [facility] Follow up 12/24/2013 Patient Education: Patient Medication [...] in protein and portion size. 11/20/2013 Appointment: lAe Carlos WPtel: [facility] [place] Follow up 11/20/2013 Patient Education: Patient Medication Summary Completed 11/20/2013 Appointment: Ale Carlos WPtel: [facility]1 [facility] [place] Follow up 11/06/2013 Visit Plan: Weight loss-increase portions-add snacks in the morning and afternoon-follow up in 3 weeks for weight check Low sodium- check labs-restart gatorade Awogump-kptwwo-ohpaz labs and UA 10/30/2013 Patient Education: Patient Medication Summary Completed 10/30/2013 Appointment: Ale Carlos WPtel: [address] [place], [place] [phone] Follow up 10/16/2013 Visit Plan: Sinusitis - [...] Dr. Merlos. 06/18/2013 Appointment: Ale Carlos WPtel: [address] [place], [place] [id number] [place] Follow up 06/18/2013 Patient Education: Patient Medication [...] call for acute concerns. 04/04/2013 Appointment: Ale Carols WPtel: [phone] [facility] Follow up 04/04/2013 Patient Education: Patient [...] with report. 02/19/2013 Appointment: Ale Carlos WPtel: [phone] [facility] Follow up 02/19/2013 Patient Education: Patient [...] memory loss. 10/16/2012 Appointment: Ale Carlos WPtel: [phone] [facility] Follow up 10/16/2012 Patient Education: Patient [...] colon return. 06/19/2012 Appointment: Ale Carlos [facility]Ptel: [phone] Follow up 06/19/2012 Patient Education: Patient Medication [...] the bentyl. 03/20/2012 Appointment: Ale Carlos WPtel: [phone] Follow up 03/20/2012 Patient Education: Patient Medication Summary Completed 03/20/2012 Patient Education: High Blood Pressure: Essential Hypertension Completed 2011 Appointment: Ale Carlos [facility]Ptel: [phone] Follow up 02/22/2012 Visit Plan: Hypertension - [...] needed. 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 I anticipate it will be at least 4-6 months before he can be off of the plavix and aspirin for additonal procedures unless it is of extreme urgency. 12/20/2011 Appointment: Ale Carlos WPtel: [phone] [facility] Follow up 12/20/2011 Patient Education: Patient Medication Summary Completed 12/20/2011 Patient Education: High Blood Pressure: Essential Hypertension Completed 2011 Appointment: Ale Carlos WPtel: [phone] [facility] Other 12/13/2011 Visit Plan: Pain in groin post heart cath with increased discomfort and increased size - will order an ultrasound for today. 12/09/2011 Appointment: Ale Carlos WPtel: [phone] [facility] Other 12/09/2011 Patient Education: Patient Medication Summary [...] increased dose of either medication. 08/25/2011 Appointment: Ale Carlos WPtel: [phone] [facility] [place] Other 08/25/2011 Patient Education: Patient Medication Summary [...] low doses. 06/23/2011 Appointment: Ale Carlos WPtel: [address] [place] [address] Other 06/23/2011 Patient Education: Patient Medication Summary Completed 06/23/2011 Patient Education: High Blood Pressure: Essential Hypertension Completed 2011 Appointment: Ale Carlos WPtel: [address] [place] [address] Other 04/26/2011 Visit Plan: Hypertension - well [...] seeds, etc. 04/19/2011 Appointment: Ale Carlos WPtel: [address] [place] [address] Other 04/19/2011 Patient Education: Patient Medication Summary Completed 04/19/2011 Patient Education: High Blood Pressure: Essential Hypertension Completed 2010 Patient Education: Diverticulosis Diet Completed 04/19/2011 Appointment: Nelly Keen WPtel: [address] [place], [place] [id number] Other 03/23/2011 Patient Education: Patient Medication Summary Completed 03/23/2011 Patient Education: High Blood Pressure: Essential Hypertension Completed 2010 Visit Plan: Record blood pressure and heart rate at home and drop the readings by the office in two weeks. No change in medications today. Laceration - removed suture today - pt to call if any complications arise. 03/08/2011 Appointment: Ale Carlos WPtel: [phone] Other 03/08/2011 Patient Education: Patient Medication Summary [...] a day. 03/01/2011 Appointment: Ale Carlos WPtel: [facility] Other 03/01/2011 Patient Education: Patient Medication Summary Completed 03/01/2011 Patient Education: High Blood Pressure: Essential Hypertension Completed 2010 Appointment: Nelly Keen WPtel: [facility]5 [phone] [place] Injection 02/25/2011 Patient Education: Patient Medication Summary Completed 02/25/2011 Appointment: Ale Carlos WPtel: [phone] [place] Injection 02/16/2011 Patient Education: Patient Medication Summary Completed 02/16/2011 Appointment: Ale Carlos WPtel: [facility]5 [facility] Injection 02/09/2011 Patient Education: Patient Medication Summary Completed 02/09/2011 Appointment: Ale Carlos WPtel: [facility]5 [facility] Follow up 02/02/2011 Visit Plan: Hydrocele and [...] with his son - Kenji Dash in [place]. Upon our conversation [id number]-[id number], Kenji vocalized concerns for his Dad's memory. He stated that he has noticed his father not being as quick in his cognitive functioning, he has noticed some concerns with driving as well. He states that he will discuss these concerns with his parents and other siblings. 02/01/2011 Appointment: Ale aCrlos WPtel: [facility]5 [facility] Other 02/01/2011 Patient Education: Patient Medication Summary [...] as needed. 01/27/2011 Appointment: Ale Carlos WPtel: [facility]5 [facility] [place] New Patient 01/27/2011 Patient Education: Patient Medication Summary Completed 01/27/2011 Visit Plan: Bruising/hematoma left arm-discussed natural and expected course of this diagnosis and to alert me if symptoms do not follow expected course or if any worse, Continue with ice/heat as needed for discomfort. Call for any concerns. 01/26/2011 Appointment: Nelly Keen WPtel: [phone] [phone] Other 01/26/2011 Patient Education: Patient Medication Summary [...] 01/15/11 01/15/2011 Appointment: Nelly Keen WPtel: [phone] [phone] Other 01/15/2011 Patient Education: Patient Medication Summary [...] free diet. 01/06/2011 Appointment: Ale Carlos WPtel: [phone] [place] New Patient 01/06/2011 Patient Education: Patient Medication Summary Completed 01/06/2011 Instructions Comment . Pain in groin post heart cath [...] for the bottom number flu shot . Hypertension - uncontrolled - the patient's [...] bentyl up to two times a day. I sent a prescription of generic zyrtec to [facility] - if it is expensive get the [...] spray in the nasal steroid allergy spray. stop the cefuroxime - start on azithromycin [...] swallow - you have thrush. . 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 I anticipate it will be at least 4-6 months before he can be off of the plavix and aspirin for additonal procedures unless it is of extreme urgency. CHECK LABS-CBC, CMP, UA WITH C&S IF INDICATED . Weight loss-increase portions-add snacks in the morning and afternoon-follow up in 3 weeks for weight check Low sodium-check labs-restart gatorade Okoixqo-ptphdm-gcmuf labs and UA . Joint effusion - recommended drainage and referral to orthopedic surgeon for surgical debridement of bursa Nasal spray- use twice daily, one spray [...] improvement of his anxiety and memory loss. . Bruising/hematoma left arm-discussed natural and expected course of this diagnosis and to alert me if symptoms do not follow expected course or if any worse, Continue with ice/heat as needed for discomfort. Call for any concerns. INCREASE YOUR MELOXICAM (MOBIC) TO 1/2 PILL TWICE DAILY X 5 DAYS CALL IF YOUR ELBOWS SWELLS AGAIN OR YOU DEVELOP PAIN OR OTHER CONCERNS . Bursitis-right elbow-drained today in the office-increase anti inflammatories for the next 5 days as directed-call if symptoms do not resolve, swelling returns or new symptoms develop-patient verbalized understanding of plan. . Hypertension - well controlled at home [...] lorazepam every 8 hours as needed. INCREASE GATORADE TO THREE TIMES PER DAY X 2 DAYS THEN TWICE DAILY stop doxycycline START CEFDINIR AND ZITHROMAX . Pneumonia - Pt has been diagnosed with pneumonia by physical exam. A chest xray has been ordered as have antibiotics. The pt is aware of the diagnosis and the need for acute treatment of this illness. Mhmmqarqr-tublz-akdbdum flonase nasal spray Hyponatremia-increase gatorade as directed . Pneumonia - Pt has been diagnosed with pneumonia by physical exam. A chest xray has been ordered as have antibiotics. The pt is aware of the diagnosis and the need for acute treatment of this illness. Qjevxcdcf-zmdhu-eydvqtz flonase nasal spray Hyponatremia-increase gatorade as directed ADDENDUM: RECOMMEND PATIENT START ON ALBUTEROL NEBULIZER TREATMENTS EVERY 4 HOURS NEEDED FOR SHORTNESS OF BREATH/WHEEZING. DX SECONDARY PNEUMONIA FROM INFLUENZA, COUGH . Allergies - recommended pt to use [...] exposure. No change in current medications. . Abdominal pain - nausea - Pt to have IV fluids at hospital Blood pressure check today in the office-improving. . Hypertension - well controlled - continue [...] thyroid and cbc prevnar 13 injection today on the Requip - decrease the dose [...] and namenda. labs to be done from [facility] call the office in 2 weeks - [...] to call if symptoms are not improving. INCREASE GATORADE TO TWICE DAILY . Abdominal pain-patient reports worsening symptoms-schedule CT abdomen/pelvis to evaluate for acute abnormality Low sodium-increase gatorade to twice HTN-well controlled-no change in treatment . Hypertension - well controlled - continue [...] - continue with treatment per Dr. Merlos. INCREASE GATORADE TO TWICE DAILY . Abdominal pain-patient reports worsening symptoms-schedule CT abdomen/pelvis to evaluate for acute abnormality Low sodium-increase gatorade to twice HTN-well controlled-no change in treatment . Peras-jihvbevei-oevoelc laryngeal reflux-RX for protonix (patient is on [...] not improved, or if symptoms acutely worsen. . Hypertension - well controlled - continue [...] symptoms are not improving. Anxiety -has improved. Appointment in [address] Carlos. [...] patient report. Finish antibiotics for full course. pt has been advised to use THE [...] with his son - Kenji Dash in [place]. Upon our conversation [id number]-[id number], Kenji vocalized concerns for his Dad's memory. [...] THAT HE SHOULD NOT BE DRIVING TO [facility] Pt is to try 1/2 pill of [...] out rx for antibiotic nasal spray . Record blood pressure and heart rate at home and drop the readings by the office in two weeks. No change in medications today. Laceration - removed suture today - pt to call if any complications arise. ESCITALOPRAM (LEXAPRO) 5MG DAILY AT BEDTIME-THIS IS [...] in blood pressure readings at home. Urinary cbohnvxlu-RFH-ylippc flomax to bedtime Dizziness-stop hydrocodone and ativan [...] with use of mobic at low doses. . Hypertension - well controlled - continue [...] pt is to call for acute concerns. decrease CELEXA (generic name is citalopram) - [...] x 2 weeks, then use as needed. . Abdominal symptoms with elevated liver enzymes- [...] 3 days of the lactose free diet. INCREASE ARICEPT (DONEPEZIL) TO 5MG TAKEN TWICE A DAY. DECREASE LOSARTAN TO 25MG - TAKE 1/2 OF A TABLET OF THE 50MG PILL DAILY CHECK BLOOD PRESSURE AT HOME AND BRING BY THE OFFICE ON TUESDAY MORNING HOLD THE SIMVASTATIN X 3 WEEKS . [...] TO HOSPITAL IN THE EVENING OF 01/15/11 . Hypertension - well controlled - continue [...] MIKAELA if symptoms of irritable colon return. INCREASE YOUR MELOXICAM (MOBIC) TO 1/2 PILL TWICE DAILY X 5 DAYS CALL IF YOUR ELBOWS SWELLS AGAIN OR YOU DEVELOP PAIN OR OTHER CONCERNS . Bursitis-right elbow-drained today in the office-increase anti inflammatories for the next 5 days as directed-call if symptoms do not resolve, swelling returns or new symptoms develop-patient verbalized understanding of plan.
--- NOTE | 2017-06-25 04:35 | ED General ---
General Chief Complaint: General Problems/Pain Stated Complaint: PAIN Nursing Triage Note: Patient reports pain that has been in his L shoulder/neck, abodomen, chest, and testicles. patient reports this pain has been intermittent and patient reports he has been evaluated by his PCP and urologist for these complaints. Patient reports that at this time the only pain that he has at this time is a dull pain in his abdomen Nursing Sepsis Screen: No Definite Risk Source of Information: Patient (PT WITH DEMENTIA--NO FAMILY ARRIVES WITH HIM), Old Records History of Present Illness Date Seen by Provider: Jun 25, 2017 Time Seen by Provider: 04:10 Initial Comments PT ARRIVES VIA EMS FROM HOME AND AMBULATES IN ON HIS OWN PT HAS MULTIPLE PAPERS WITH HIM WITH HANDWRITTEN NOTES, TEST RESULTS, ETC. PT STATES HE "HAD PAIN ALL OVER" BUT IS GONE NOW. EXCEPT POSSIBLY HAS A SLIGHT "ANNOYING" DISCOMFORT IN UPPER ABDOMEN STARTED WITH PAIN IN LEFT SCAPULAR/TRAPEZIUS AREA, THEN MOVED DOWN TO CHEST THEN ABDOMEN --"DOWN TO MY GUT AND THEN DOWN TO MY TESTICLES" THIS HAS BEEN GOING ON FOR AT LEAST A WEEK STATES PAIN AT 1930 ON Tuesday06/23/17 "WAS THE ONLY INTENSE PAIN I'VE HAD AND IT JOLTED ME AND BENT ME OVER" NO NAUSEA/VOMITING--HAS BEEN EATING AND DRINKING NORMALLY --STATES HE THINKS FOOD MAKES IT BETTER NO DIARRHEA OR CONSTIPATION, HAS BEEN HAVING REGULAR DAILY BM'S NO FEVER, BUT YESTERDAY HAD CHILLS TWICE NO URINARY SYMPTOMS ( OTHER THAN ONGOING ISSUES WITH PROSTATE) SEEN BY DR. JACQUES 06/21 FOR THIS PROBLEM AND RECOMMENDED LACTAID, GAS X, 4% TOPICAL LIDOCAINE, WELL PHYSICAL THERAPY AND POSSIBLY ACUPUNCTURE SEEN BY DR. COBURN ON 06/23 FOR THIS PROBLEM AND RECOMMENDED ALEVE. PT HAS PROSTATE CANCER--PT STATES 'IT HAS NOT SPREAD" AND HAS BEEN REFERRED TO [facility], BUT NO SET APPOINTMENT YET--THINKS IT WILL PROBABLY BE SOMETIME IN JULY. HAS HAD 'GASTRIC EROSIONS" AND ESOPHAGITIS IN THE PAST--LAST EGD/COLONOSCOPY WAS IN 2014. HAS ALSO HAD ERCP IN THE PAST BY DR. BOONE PT ALSO HAS HISTORY OF IBS, PER OLD RECORDS HAD BONE SCAN AND CT OF ABDOMEN/PELVIS ON 05/12/17--POSSIBLE NEOPLASTIC AREA NOTED IN PROSTATE, OTHERWISE NO ACUTE PROCESS, AND NO EVIDENCE OF BONY METASTATIC DISEASE, PER REPORTS PCP: DR. JACQUES Allergies and Home Medications Allergies Coded Allergies: butorphanol (Verified Allergy, Unknown, 11/28/11) ketorolac (Verified Adverse Reaction, Mild, STATES CAUSES MORE PAIN, ) Home Medications Amlodipine Besylate 10 Mg Tablet, 10 MG PO HS, (Reported) Aspirin 81 Mg Tablet.dr, 81 MG PO DAILY, (Reported) Cetirizine HCl 10 Mg Tablet, 10 MG PO DAILY, #30 Prescribed by: JONN REID on 04/14/16 0821 Cholecalciferol 1,000 Unit Tablet, 1,000 UNIT PO DAILY, (Reported) Citalopram Hydrobromide 10 Mg Tablet, 10 MG PO DAILY, (Reported) Clopidogrel Bisulfate 75 Mg Tablet, 75 MG PO DAILY, (Reported) Donepezil HCl 10 Mg Tablet, 10 MG PO HS, (Reported) Hydrocodone Bit/Acetaminophen 1 Each Tablet, 1-2 TAB PO Q4H PRN for PAIN, #40 MAY TAKE ONE OR TWO TABLETS BY MOUTH EVERY 4 HOURS NEEDED FOR PAIN. DO NOT EXCEED 3000 MG TYLENOL(ACETAMINOPHEN)IN A 24 HOUR PERIOD(NO MORE THAN 9 TABLETS IN 24 HOURS) Prescribed by: JONN REID on 04/14/16 1159 Lisinopril 20 Mg Tablet, 20 MG PO DAILY, (Reported) Melatonin/Pyridoxine 1 Each Tablet, 5 MG PO HS, (Reported) Meloxicam 15 Mg Tablet, 15 MG PO DAILY, (Reported) Memantine HCl 10 Mg Tablet, 10 MG PO BID, (Reported) Mirtazapine 15 Mg Tablet, 15 MG PO HS, (Reported) Multivitamins 1 Each Capsule, 1 EACH PO DAILY, (Reported) Pantoprazole Sodium 40 Mg Tablet.dr, 40 MG PO DAILY, (Reported) Ropinirole HCl 0.25 Mg Tab, 0.25 MG PO BID, #30 Prescribed by: JONN REID on 04/14/16 0825 Constitutional: see HPI, chills EENTM: no symptoms reported Respiratory: no symptoms reported Cardiovascular: see HPI Gastrointestinal: see HPI Genitourinary: see HPI Musculoskeletal: see HPI Skin: no symptoms reported Psychiatric/Neurological: No Symptoms Reported Hematologic/Lymphatic: No Symptoms Reported Immunological/Allergic: no symptoms reported Past Kwizoln-Lihfit-Mkkmec Hx Patient Social History Alcohol Use: Denies Use Recreational Drug Use: No Smoking Status: Never a Smoker Recent Foreign Travel: No Contact w/Someone Who Travel: No Recent Infectious Disease Expo: No Recent Hopitalizations: No Immunizations Up To Date Tetanus Booster (TDap): Less than 5yrs Date of Pneumonia Vaccine: May 09, 2012 Date of Influenza Vaccine: Feb 06, 2017 Seasonal Allergies Seasonal Allergies: No Surgeries History of Surgeries: Yes (BILAT ING HERNIA ,CATARACT SURGERY, TURP; CARDIAC CATH--STENTS X 2; EGD/COLONOSCOPY/ERCP; RIGHT ELBOW BURSECTOMY) Surgeries: Abdominal, Adenoidectomy, Cardiac, Coronary Stent, Eye Surgery, Orthopedic, Tonsillectomy, Transurethral Resection Respiratory History of Respiratory Disorde: No Cardiovascular History of Cardiac Disorders: Yes (STENTS X2) Cardiac Disorders: Coronary Artery Disease, High Cholesterol, Hypertension Neurological History of Neurological Disord: Yes (1993-STROKE) Neurological Disorders: Dementia, Stroke Reproductive System Hx Reproductive Disorders: No Sexually Transmitted Disease: No HIV/AIDS: No Genitourinary History of Genitourinary Disor: Yes (HX TURP; PROSTATE CANCER) Genitourinary Disorders: Benign Prostatic Hyperpl, Prostate Problems Gastrointestinal History of Gastrointestinal Di: Yes ("GASTRIC EROSIONS") Gastrointestinal Disorders: Gastroesophageal Reflux, Diverticulosis, Ulcer, Irritable Bowel Musculoskeletal History of Musculoskeletal Dis: Yes (ARTHRITIS) Musculoskeletal Disorders: Arthritis Endocrine History of Endocrine Disorders: No HEENT History of HEENT Disorders: Yes HEENT Disorders: Cataract Loss of Vision: Bilateral Hearing Impairment: Bilateral Hearing Aide Cancer History of Cancer: Yes Cancer: Prostate Did You Recieve Any Treatments: No Psychosocial History of Psychiatric Problem: No Integumentary History of Skin or Integumenta: No Blood Transfusions History of Blood Disorders: No Adverse Reaction to a Blood Tr: No Physical Exam Vital Signs Vital Signs - First Documented 06/25/17 04:21 Temp 96.8 Pulse 64 Resp 20 B/P (MAP) 146/83 (104) Pulse Ox 97 Capillary Refill : Less Than 3 Seconds General Appearance: No Apparent Distress, WD/WN HEENT: PERRL/EOMI Neck: Full Range of Motion, Normal Inspection, Non Tender, Supple, No JVD Respiratory: Chest Non Tender, Normal Breath Sounds, No Accessory Muscle Use, No Respiratory Distress Cardiovascular: Regular Rate, Rhythm, No Edema, No JVD, No Murmur, Normal Peripheral Pulses Gastrointestinal: Normal Bowel Sounds, No Organomegaly, No Pulsatile Mass, Non Tender, Soft Back: Normal Inspection, No CVA Tenderness Extremity: Normal Capillary Refill, Normal Inspection, Normal Range of Motion, Non Tender, No Calf Tenderness, No Pedal Edema Neurologic/Psychiatric: Alert, Oriented x3, No Motor/Sensory Deficits, Normal Mood/Affect, 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 Norm as Tested Skin: Normal Color, Warm/Dry Progress/Results/Core Measures Suspected Sepsis Recent Fever Within 48 Hours: No Infection Criteria Present: None New/Unexplained Altered Menta: No Sepsis Screen: No Definite Risk Sepsis Diagnosis: SIRS Temperature:96.8 Pulse: 64 Respiratory Rate: 20 Laboratory Tests 06/25/17 04:30: White Blood Count 4.7 Blood Pressure 146 /83 Mean: 104 Laboratory Tests 06/25/17 04:30: Creatinine 0.88, Platelet Count 170, Total Bilirubin 0.6 Results/Orders Lab Results Laboratory Tests Test 06/25/17 04:30 06/25/17 04:45 Range/Units White Blood Count 4.7 4.3-11.0 10^3/uL Red Blood Count 4.15 L 4.35-5.85 10^6/uL Hemoglobin 13.5 13.3-17.7 G/DL Hematocrit 38 L 40-54 % Mean Corpuscular Volume 91 80-99 FL Mean Corpuscular Hemoglobin 33 25-34 PG Mean Corpuscular Hemoglobin Concent 36 32-36 G/DL Red Cell Distribution Width 13.9 10.0-14.5 % Platelet Count 170 130-400 10^3/uL Mean Platelet Volume 10.0 7.4-10.4 FL Neutrophils (%) (Auto) 64 42-75 % Lymphocytes (%) (Auto) 21 12-44 % Monocytes (%) (Auto) 14 H 0-12 % Eosinophils (%) (Auto) 1 0-10 % Basophils (%) (Auto) 0 0-10 % Neutrophils # (Auto) 3.0 1.8-7.8 X 10^3 Lymphocytes # (Auto) 1.0 1.0-4.0 X 10^3 Monocytes # (Auto) 0.7 0.0-1.0 X 10^3 Eosinophils # (Auto) 0.0 0.0-0.3 10^3/uL Basophils # (Auto) 0.0 0.0-0.1 10^3/uL Sodium Level 131 L 135-145 MMOL/L Potassium Level 4.2 3.6-5.0 MMOL/L Chloride Level 97 L 98-107 MMOL/L Carbon Dioxide Level 23 21-32 MMOL/L Anion Gap 11 5-14 MMOL/L Blood Urea Nitrogen 16 7-18 MG/DL Creatinine 0.88 0.60-1.30 MG/DL Estimat Glomerular Filtration Rate > 60 BUN/Creatinine Ratio 18 Glucose Level 92 70-105 MG/DL Calcium Level 9.0 8.5-10.1 MG/DL Total Bilirubin 0.6 0.1-1.0 MG/DL Aspartate Amino Transf (AST/SGOT) 29 5-34 U/L Alanine Aminotransferase (ALT/SGPT) 22 0-55 U/L Alkaline Phosphatase 75 40-136 U/L Troponin I < 0.30 <0.30 NG/ML Total Protein 5.5 L 6.4-8.2 GM/DL Albumin 3.8 3.2-4.5 GM/DL Amylase Level 82 25-125 U/L Lipase 36 8-78 U/L Urine Color YELLOW Urine Clarity CLEAR Urine pH 7 5-9 Urine Specific [place] 1.010 L 1.016-1.022 Urine Protein NEGATIVE NEGATIVE Urine Glucose (UA) NEGATIVE NEGATIVE Urine Ketones NEGATIVE NEGATIVE Urine Nitrite NEGATIVE NEGATIVE Urine Bilirubin NEGATIVE NEGATIVE Urine Urobilinogen NORMAL NORMAL MG/DL Urine Leukocyte Esterase NEGATIVE NEGATIVE Urine RBC (Auto) 1+ H NEGATIVE Urine RBC 0-2 /HPF Urine WBC NONE /HPF Urine Squamous Epithelial Cells RARE /HPF Urine Crystals NONE /LPF Urine Bacteria NEGATIVE /HPF Urine Casts NONE /LPF Urine Mucus NEGATIVE /LPF Urine Culture Indicated NO My Orders Orders - ZAYDA NAIR DO Saline Lock/Iv-Start (06/25/17 04:22) Amylase (06/25/17 04:22) Cbc With Automated Diff (06/25/17 04:22) Comprehensive Metabolic Panel (06/25/17 04:22) Lipase (06/25/17 04:22) Troponin I (06/25/17 04:22) Ua Culture If Indicated (06/25/17 04:22) Ct [facility] Chest/Noang Abd-Pelv W (06/25/17 05:21) Iohexol Injection (Omnipaque 350 Mg/Ml 1 (06/25/17 06:30) Ns (Ivpb) (Sodium Chloride 0.9%) (06/25/17 06:30) Medications Given in ED Current Medications Medications Dose Ordered Sig/Niall Route Start Time Stop Time Status Last Admin Dose Admin Iohexol 150 ml ONCE ONCE IV 06/25/17 06:30 06/25/17 06:31 DC 06/25/17 06:29 125 ML Sodium Chloride 250 ml ONCE ONCE IV 06/25/17 06:30 06/25/17 06:31 DC 06/25/17 06:29 80 ML Vital Signs/I&O Vital Sign - Last 12Hours 06/25/17 04:21 Temp 96.8 Pulse 64 Resp 20 B/P (MAP) 146/83 (104) Pulse Ox 97 Capillary Refill : Less Than 3 Seconds Blood Pressure Mean: 104 Progress Note : Progress Note PT HAD NO COMPLAINTS OF ANY TIME DURING ER STAY Diagnostic Imaging Comments CT CHEST ANGIO/ABDOMEN-PELVIS--CONSTIPATION, CHRONIC CHANGES, MILD INCREASE IN HYPERDENSE PROSTATIC LESION--PER [facility] VIA FAX @ [phone] Reviewed: Reviewed by Me Departure Impression Impression: Primary Impression: Constipation Additional Impression: Prostate cancer Disposition: HOME, SELF-CARE Condition: Stable Departure-Patient Inst. Referrals: DAYDAY JACQUES MD (PCP/Family) Primary Care Physician HARPAL COBURN MD Patient Instructions: Constipation, Adult (DC), Prostate Cancer (DC) Add. Discharge Instructions: TAKE MIRALAX EVERY DAY--INITIALLY YOU MAY TAKE IT EVERY 2-4 HOURS UNTIL YOUR STOOLS ARE CLEAR, THEN YOU MAY TAKE ONCE A DAY CONTINUE YOUR CURRENT MEDICATIONS PRESCRIBED FOLLOW UP WITH DR. JACQUES NEEDED All discharge instructions reviewed with patient and/or family. Voiced understanding. ZAYDA NAIR DO Jun 25, 2017 04:35
--- OUTSIDE RECORDS SUMMARY | 2017-06-25 04:35 | XMS REPORT | CCD ---
Author Author [facility] Organization [facility] Address [address] [place] [address] Phone Care Team Providers Care Director Of Quality Control Name Role Phone Ale [facility] PP Unavailable CCM Unavailable Summary Purpose Interface Exchange Insurance Providers Payer name Policy type / Coverage type Covered republican ID Effective Begin Date Effective End Date WPS Medicare Part B Medicare Part B [id number] Unknown Unknown [facility] Medicare Part B [id number] Unknown Unknown Family history Runs in the family Diagnosis Age At Onset No Family Disease Entered N/A Mother Diagnosis Age At Onset No Family Disease Entered N/A Father Diagnosis Age At Onset Heart disease Unknown Social History Social History Element Codes Description Effective Dates Number of children Unknown 3 3 ([place], [place], [place]) 05/06/2015 Living arrangements Unknown House 01/11/2011 Number of adults in household Unknown 2 01/11/2011 Education level Unknown Post-Graduate PHD in chemistry 01/11/2011 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 Marital status Unknown 01/06/[address]: 001477026 Never smoker 01/06/[address]: 353572918 Quit this year quit 200401/06/2011 Has the [...] Start Date Stop Date Status Fill Instructions clopidogrel 75 mg tablet RxNorm: 987100 TAKE 1 TABLET BY MOUTH EVERY DAY 06/20/2017 12/16/2017 Active cetirizine 10 mg tablet RxNorm: 6437589 TABLET(S) 1 TABLET(S) PO DAILY TO TAKE INSTEAD OF THE CLARITIN 06/06/20172017 Active lisinopril 20 mg tablet RxNorm: 761588 TAKE 1 TABLET DAILY 11/25/2017 Active Mobic 15 mg tablet RxNorm: 969046 1/2 TABLET(S) DAILY 201609/16/2017 Active donepezil 10 mg tablet RxNorm: 335772 1 Tablet(s) PO daily TAKE 1 TABLET BY MOUTH ONCE DAILY 02/28/2017 11/24/2017 Active Patient requests 90 days supply Requip 0.25 mg tablet RxNorm: 583761 1 TABLET(S) PO BID 201606/22/2017 Active Patient requests 90 days supply clopidogrel 75 mg tablet RxNorm: 849555 TAKE 1 TABLET BY MOUTH EVERY DAY 12/23/2016 06/19/2017 Inactive lisinopril 20 mg tablet RxNorm: 103584 TAKE 1 TABLET DAILY 05/24/2017 Inactive Kenalog 40 mg/mL suspension for injection RxNorm: 0437645 Milliliter(s) Inj 11/25/2016 11/25/2016 Inactive cefdinir 300 mg capsule RxNorm: 248722 1 Capsule(s) PO BID 11/27/2016 Inactive cefdinir 300 mg capsule RxNorm: 620783 1 Capsule(s) PO BID 11/22/2016 Inactive nystatin 100,000 unit/mL oral suspension RxNorm: 550089 5 Milliliter(s) PO QID 11/18/2016 11/27/2016 Inactive azithromycin 250 mg tablet RxNorm: 599417 1 Tablet(s) PO UD 2 pills on day #1 then one pill daily x 4 more days 11/18/2016 11/22/2016 Inactive Mobic 15 mg tablet RxNorm: 106833 1/2 TABLET(S) DAILY 201603/20/2017 Inactive citalopram 10 mg tablet RxNorm: 023103 TAKE 1 TABLET BY MOUTH EVERY DAY 10/07/2016 03/05/2017 Inactive Patient requests 90 days supply mirtazapine 15 mg tablet RxNorm: 771678 TAKE ONE TABLET BY MOUTH EVERY DAY 10/06/2016 09/30/2017 Active mirtazapine 15 mg tablet RxNorm: 218878 TAKE ONE TABLET BY MOUTH EVERY DAY 10/05/2016 10/05/2016 Inactive Patient requests 90 days supply amlodipine 10 mg tablet RxNorm: 060522 TAKE 1 TABLET BY MOUTH EVERY DAY 09/14/2016 01/24/2017 Inactive clopidogrel 75 mg tablet RxNorm: 657286 TAKE 1 TABLET BY MOUTH EVERY DAY 06/28/2016 12/22/2016 Inactive lisinopril 20 mg tablet RxNorm: 034233 TAKE 1 TABLET DAILY 11/25/2016 Inactive donepezil 10 mg tablet RxNorm: 957748 TAKE 1 TABLET BY MOUTH ONCE DAILY 05/11/2016 11/06/2016 Inactive donepezil 10 mg tablet RxNorm: 297371 TAKE 1 TABLET BY MOUTH ONCE DAILY 04/26/2016 02/28/2017 Inactive Mobic 15 mg tablet RxNorm: 706514 1/2 Tablet(s) daily 201510/15/2016 Inactive citalopram 10 mg tablet RxNorm: 567452 TAKE 1 TABLET BY MOUTH EVERY DAY 04/06/2016 04/25/2016 Inactive cetirizine 10 mg tablet RxNorm: 5822008 Tablet(s) 1 TABLET(S) PO DAILY TO TAKE INSTEAD OF THE CLARITIN 03/30/20162016 Inactive amlodipine 10 mg tablet RxNorm: 982270 TAKE 1 TABLET BY MOUTH EVERY DAY 03/08/2016 01/24/2017 Inactive amlodipine 10 mg tablet RxNorm: 065705 1 Tablet(s) PO daily TAKE 1 TABLET BY MOUTH ONCE DAILY 03/03/2016 03/07/2016 Inactive Requip 0.25 mg tablet RxNorm: 324703 1 Tablet(s) PO BID 201509/13/2016 Inactive Mobic 15 mg tablet RxNorm: 175422 1 Tablet(s) daily not refilled on 02/23/2016 04/18/2016 Inactive cetirizine 10 mg tablet RxNorm: 9161409 1 TABLET(S) PO DAILY TO TAKE INSTEAD OF THE CLARITIN 02/19/2016 03/19/2016 Inactive lisinopril 20 mg tablet RxNorm: 630066 TAKE 1 TABLET DAILY 04/201605/17/2016 Inactive Namenda 10 mg tablet RxNorm: 972326 Tablet(s) TAKE 1 TABLET BY MOUTH TWICE DAILY. 02/17/2016 No Stop Date Active lisinopril 20 mg tablet RxNorm: 036961 TAKE 1 TABLET DAILY 01/24/2017 Inactive cetirizine 10 mg tablet RxNorm: 5711850 1 Tablet(s) PO daily to take instead of the claritin 01/21/2016 02/18/2016 Inactive amlodipine 10 mg tablet RxNorm: 950440 1 Tablet(s) PO daily TAKE 1 TABLET BY MOUTH ONCE DAILY 12/02/2015 03/02/2016 Inactive clopidogrel 75 mg tablet RxNorm: 980623 TAKE 1 TABLET BY MOUTH EVERY DAY 11/25/2015 05/22/2016 Inactive Mobic 15 mg tablet RxNorm: 865236 TAKE(1/2) TABLET DAILY. 03/201602/22/2016 Inactive lisinopril 20 mg tablet RxNorm: 825078 TAKE 1 TABLET DAILY 03/201601/15/2016 Inactive Mobic 15 mg tablet RxNorm: 296903 1/2 Tablet(s) PO daily TAKE (1/2) TABLET DAILY. 11/12/2015 11/16/2015 Inactive citalopram 10 mg tablet RxNorm: 760415 TAKE 1 TABLET BY MOUTH EVERY DAY 10/27/2015 04/05/2016 Inactive Requip 0.25 mg tablet RxNorm: 301745 1 Tablet(s) PO BID 201502/11/2016 Inactive Requip 0.25 mg tablet RxNorm: 761842 1 Tablet(s) PO BID 201510/14/2015 Inactive mirtazapine 15 mg tablet RxNorm: 993693 1 Tablet(s) PO daily 10/01/2016 Inactive donepezil 10 mg tablet RxNorm: 347286 TAKE 1 TABLET DAILY 08/3104/25/2016 Inactive amlodipine 10 mg tablet RxNorm: 352307 1 Tablet(s) PO daily TAKE 1 TABLET BY MOUTH ONCE DAILY 08/18/2015 12/01/2015 Inactive clopidogrel 75 mg tablet RxNorm: 859033 1 Tablet(s) PO daily TAKE 1 TABLET DAILY 05/20/2015 11/24/2015 Inactive Mobic 15 mg tablet RxNorm: 733392 Tablet(s) TAKE (1/2) TABLET DAILY. 04/23/2015 10/19/2015 Inactive lisinopril 20 mg tablet RxNorm: 832761 TAKE 1 TABLET DAILY 11/16/2015 Inactive Mobic 15 mg tablet RxNorm: 157541 TAKE (1/2) TABLET DAILY. 04/22/2015 Inactive sulfamethoxazole 400 mg-trimethoprim 80 mg tablet RxNorm: 656048 1/2 Tablet(s) PO daily 03/11/2015 04/09/2015 Inactive Vesicare 5 mg tablet RxNorm: 696447 1 Tablet(s) PO 03/11/2015 05/09/2015 Inactive Protonix 40 mg tablet,delayed release RxNorm: 654408 1 Tablet(s) PO BID 03/05/2015 09/30/2015 Inactive ok to change from [address] Carlos clopidogrel 75 mg tablet RxNorm: 505066 1 Tablet(s) PO daily TAKE 1 TABLET DAILY 02/20/2015 05/19/2015 Inactive Namenda 10 mg tablet RxNorm: 864505 Tablet(s) TAKE 1 TABLET BY MOUTH TWICE DAILY. 01/22/2015 02/16/2016 Inactive amlodipine 10 mg tablet RxNorm: 342165 TAKE 1 TABLET BY MOUTH ONCE DAILY 01/14/2015 08/17/2015 Inactive donepezil 10 mg tablet RxNorm: 854850 TAKE 1 TABLET DAILY 01/0608/31/2015 Inactive Levsin 0.125 mg tablet RxNorm: 8278732 1 Tablet(s) PO QID as needed FOR ABD PAIN 11/05/2014 12/03/2014 Inactive Mobic 15 mg tablet RxNorm: 925576 1/2 Tablet(s) daily TAKE (1/2) TABLET DAILY. 10/01/2014 04/21/2015 Inactive ciprofloxacin 500 mg tablet RxNorm: 580381 1 Tablet(s) PO BID 09/27/2014 10/01/2014 Inactive Flagyl 500 mg tablet RxNorm: 548287 1 Tablet(s) PO TID 201410/03/2014 Inactive take probiotic BID donepezil 10 mg tablet RxNorm: 190293 1/2 Tablet(s) PO BID 01/05/2015 Inactive lisinopril 20 mg tablet RxNorm: 732871 TAKE 1 TABLET DAILY 04/21/2015 Inactive amlodipine 10 mg tablet RxNorm: 969194 1 Tablet(s) PO daily 12/30/2014 Inactive mirtazapine 15 mg tablet RxNorm: 757992 1 Tablet(s) PO daily 09/07/2015 Inactive donepezil 10 mg tablet RxNorm: 987071 1 Tablet(s) PO daily 09/23/2014 Inactive citalopram 10 mg tablet RxNorm: 785913 1 Tablet(s) PO daily 03/25/2015 Inactive citalopram 10 mg tablet RxNorm: 283522 1 Tablet(s) PO daily 05/201408/27/2014 Inactive citalopram 10 mg tablet RxNorm: 399200 1 Tablet(s) PO daily 05/201408/06/2014 Inactive Flagyl 500 mg tablet RxNorm: 197583 1 Tablet(s) PO TID 201408/01/2014 Inactive take probiotic BID Flagyl 500 mg tablet RxNorm: 368035 1 Tablet(s) PO TID 201408/08/2014 Inactive take probiotic BID tamsulosin ER 0.4 mg capsule,extended release 24 hr RxNorm: 951416 1 Capsule(s) PO QHS 06/06/2014 03/10/2015 Inactive TAKE AT BEDTIME escitalopram 5 mg tablet RxNorm: 949488 1 Tablet(s) PO QPM 08/06/2014 Inactive doxycycline hyclate 100 mg tablet RxNorm: 107418 1 Tablet(s) PO BID 05/31/2014 05/30/2014 Inactive doxycycline hyclate 100 mg tablet RxNorm: 087189 1 Tablet(s) PO BID 05/31/2014 06/06/2014 Inactive please deliver if not picked by 3pm Aricept 5 mg tablet RxNorm: 907741 1 Tablet(s) PO BID 201408/27/2014 Inactive losartan 50 mg tablet RxNorm: 327695 1/2 Tablet(s) PO daily 12/28/2015 Inactive clopidogrel 75 mg tablet RxNorm: 107319 1 Tablet(s) PO daily 05/26/2014 Inactive Mobic 15 mg tablet RxNorm: 372824 TAKE (1/2) TABLET DAILY. 09/30/2014 Inactive clopidogrel 75 mg tablet RxNorm: 222480 TAKE 1 TABLET DAILY 02/19/2015 Inactive Mobic 15 mg tablet RxNorm: 288889 1/2 Tablet(s) PO daily TAKE (1/2) TABLET DAILY. 05/27/2014 05/26/2014 Inactive prednisone 20 mg tablet RxNorm: 909594 1 Tablet(s) PO BID 05/2105/25/2014 Inactive albuterol sulfate 2.5 mg/0.5 mL solution for nebulization RxNorm: 446012 1 inhale INH Q4H as needed 05/21/2014 09/01/2015 Inactive prednisone 20 mg tablet RxNorm: 488269 1 Tablet(s) PO BID 05/2105/20/2014 Inactive cefdinir 300 mg capsule RxNorm: 276208 1 Capsule(s) PO BID 04/201505/26/2014 Inactive Zithromax Z-Dequan 250 mg tablet RxNorm: 832897 1 Tablet(s) PO UD 05/20/2014 05/24/2014 Inactive zpack lorazepam 0.5 mg tablet RxNorm: 036244 1/2 to 1 Tablet(s) PO Q8 PRN as needed 04/30/2014 06/05/2014 Inactive Namenda 10 mg tablet RxNorm: 167420 TAKE 1 TABLET BY MOUTH TWICE DAILY. 04/15/2014 01/21/2015 Inactive Namenda 10 mg tablet RxNorm: 346572 1 Tablet(s) PO BID 201304/14/2014 Inactive losartan 50 mg tablet RxNorm: 795841 1 Tablet(s) PO daily 201305/28/2014 Inactive Protonix 40 mg tablet,delayed release RxNorm: 477835 1 Tablet(s) PO QPM 03/21/2014 06/18/2014 Inactive ok to change from [address] Carlos fluticasone 50 mcg/actuation nasal spray,suspension RxNorm: 110895 1 [employer] NASAL BID 03/04/2014 09/29/2014 Inactive Protonix 20 mg tablet,delayed release RxNorm: 316141 1 Tablet(s) PO QPM 02/08/2014 03/20/2014 Inactive fluticasone 50 mcg/actuation nasal spray,suspension RxNorm: 423258 1 [employer] NASAL BID 01/30/2014 03/03/2014 Inactive fluticasone 50 mcg/actuation nasal spray,suspension RxNorm: 973541 1 [employer] NASAL BID 12/24/2013 01/29/2014 Inactive fluticasone 50 mcg/actuation nasal spray,suspension RxNorm: 883555 1 [employer] NASAL BID 11/20/2013 12/23/2013 Inactive doxycycline hyclate 100 mg capsule RxNorm: 7276334 1 Capsule(s) PO BID 10/08/2013 10/17/2013 Inactive doxycycline hyclate 100 mg capsule RxNorm: 6313295 capsule oral 10/08/2013 10/29/2013 Inactive fluticasone 50 mcg/actuation nasal spray,suspension RxNorm: 751707 spray, suspension nasl 10/08/2013 11/19/2013 Inactive fluticasone 50 mcg/actuation nasal spray,suspension RxNorm: 228113 1 [employer] NASAL BID Nasal spray- use twice daily, one spray per nostril twice daily, after 30 minutes, rinse out nose with saline spray. 10/08/2013 10/29/2013 Inactive mirtazapine 7.5 mg tablet RxNorm: 368522 1/2 Tablet(s) PO daily 08/30/2013 08/27/2014 Inactive lorazepam 0.5 mg tablet RxNorm: 352951 1/2 Tablet(s) PO Q8 PRN 08/21/2013 04/29/2014 Inactive Aricept 5 mg tablet RxNorm: 887786 Tablet(s) PO TAKE 1 TABLET DAILY 08/21/2013 05/28/2014 Inactive Plavix 75 mg tablet RxNorm: 957512 Tablet(s) PO TAKE 1 TABLET DAILY 05/24/2013 12/04/2014 Inactive clopidogrel 75 mg tablet RxNorm: 562394 tablet oral 05/24/2013 05/26/2014 Inactive Plavix 75 mg tablet RxNorm: 267417 1 Tablet(s) PO daily 201305/23/2013 Inactive meloxicam 15 mg tablet RxNorm: 293447 tablet oral 04/26/2013 03/25/2014 Inactive Mobic 15 mg tablet RxNorm: 503247 Tablet(s) PO TAKE (1/2) TABLET DAILY. 04/26/2013 05/26/2014 Inactive Mobic 15 mg tablet RxNorm: 254869 1/2 Tablet(s) PO daily 04/25/2013 Inactive lisinopril 20 mg tablet RxNorm: 826668 1 Tablet(s) PO 201203/24/2014 Inactive finasteride 5 mg tablet RxNorm: 991334 tablet oral 03/22/2013 09/01/2015 Inactive lisinopril 10 mg tablet RxNorm: 317311 1 Tablet(s) PO daily 01/201304/03/2013 Inactive donepezil 5 mg tablet RxNorm: 414271 tablet oral 02/07/2013 12/24/2013 Inactive Influenza Virus Vaccine 0.5 mL RxNorm: IM 02/06/2013 02/06/2013 Inactive Aricept 5 mg tablet RxNorm: 397305 1 Tablet(s) PO daily 201208/04/2013 Inactive tamsulosin ER 0.4 mg capsule,extended release 24 hr RxNorm: 324257 capsule, extended release 24hr oral 12/21/2012 Inactive Plavix 75 mg tablet RxNorm: 833724 1 Tablet(s) PO daily 201205/03/2013 Inactive lorazepam 0.5 mg tablet RxNorm: 226375 1/2 Tablet(s) PO Q8 PRN 11/14/2012 08/20/2013 Inactive lisinopril 10 mg tablet RxNorm: 349267 1 Tablet(s) PO daily 06/201202/03/2013 Inactive Aricept 5 mg tablet RxNorm: 700286 1 Tablet(s) PO daily 201202/03/2013 Inactive Plavix 75 mg tablet RxNorm: 869791 1 Tablet(s) PO daily 201211/30/2012 Inactive Mobic 15 mg tablet RxNorm: 599255 1/2 Tablet(s) PO daily 04/201204/13/2013 Inactive Namenda 10 mg tablet RxNorm: 937700 1 Tablet(s) PO BID 201104/11/2014 Inactive lorazepam 0.5 mg tablet RxNorm: 473690 1/2 Tablet(s) PO Q8 PRN 02/02/2012 11/13/2012 Inactive lisinopril 10 mg tablet RxNorm: 543767 1 Tablet(s) PO daily 07/21/2012 Inactive lisinopril 10 mg tablet RxNorm: 626229 1/2 Tablet(s) PO daily 12/20/2011 01/23/2012 Inactive Aricept 5 mg tablet RxNorm: 362511 1 Tablet(s) PO daily 201108/06/2012 Inactive Mobic 15 mg tablet RxNorm: 015648 1 Tablet(s) PO daily 201103/19/2012 Inactive Bentyl 10 mg Cap RxNorm: 676950 1 Capsule(s) PO daily one pill daily and every 6 hours if needed for bowel spasms. 06/23/2011 03/20/2012 Inactive amlodipine 5 mg Tab RxNorm: 263828 2 Tablet(s) PO daily 201012/08/2011 Inactive ZOSTAVAX 19,400 unit Sub-Q Soln RxNorm: 1346992 SQ 02/25/2011 02/25/2011 Inactive Pneumovax 23 25 mcg/0.5 mL Injection RxNorm: 260074 Milliliter(s) Inj 02/16/2011 02/16/2011 Inactive Influenza Virus Vaccine 0.5 mL RxNorm: IM 02/09/2011 02/09/2011 Inactive Namenda 10 mg tablet RxNorm: 766580 1 Tablet(s) PO BID 201002/21/2012 Inactive dicyclomine 10 mg capsule RxNorm: 857000 capsule oral 201010/29/2013 Inactive Namenda 5 mg tablet RxNorm: 941298 tablet oral 01/20/2011 12/24/2013 Inactive dicyclomine 20 mg tablet RxNorm: 200882 tablet oral 01/15/2011 10/29/2013 Inactive Flagyl 500 mg Tab RxNorm: 114388 1 Tablet(s) PO TID 201001/06/2011 Inactive Cipro 500 mg Tab RxNorm: 501522 1 Tablet(s) PO BID 201006/23/2011 Inactive Cipro 500 mg Tab RxNorm: 883630 1 Tablet(s) PO BID 201001/06/2011 Inactive Flagyl 500 mg Tab RxNorm: 041446 1 Tablet(s) PO TID 201006/23/2011 Inactive metronidazole 500 mg tablet RxNorm: 897849 tablet oral 201012/24/2013 Inactive sulfamethoxazole 400 mg-trimethoprim 80 mg tablet RxNorm: 560108 tablet oral 12/24/2010 03/10/2015 Inactive mirtazapine 15 mg tablet RxNorm: 682709 tablet oral 11/14/2010 12/24/2013 Inactive lisinopril 10 mg tablet RxNorm: 657502 tablet oral 11/14/2010 12/24/2013 Inactive doxycycline hyclate 100 mg tablet RxNorm: 526745 tablet oral 12/24/2013 Inactive diphenoxylate-atropine 2.5 mg-0.025 mg tablet RxNorm: 2105236 tablet oral 11/03/2010 10/29/2013 Inactive ciprofloxacin 500 mg tablet RxNorm: 588011 tablet oral 201010/29/2013 Inactive aspirin 81 mg Cap, Delayed Release RxNorm: 874148 1 Capsule(s) PO daily No Start Date Active Vitamin D 1,000 unit Tab RxNorm: 952992 1 Tablet(s) PO daily No Start Date Active Senior Vitamin Tab RxNorm: 1 Tablet(s) PO daily No Start Date Active sulfamethoxazole 500 mg Tab RxNorm: 016154 1/2 Tablet(s) PO daily No Start Date 12/24/2013 Inactive Plavix 75 mg Tab RxNorm: 761874 1 Tablet(s) PO daily No Start Date 01/26/2011 Inactive hydrocodone 5 mg-acetaminophen 325 mg tablet RxNorm: 374869 1 Tablet(s) PO Q6 as needed No Start Date 06/05/2014 Inactive Proscar 5 mg Tab RxNorm: 507704 1 Tablet(s) PO daily No Start Date 09/01/2015 Inactive Plavix 75 mg tablet RxNorm: 293408 1 Tablet(s) PO daily No Start Date 07/03/2012 Inactive albuterol sulfate 2.5 mg/0.5 mL solution for nebulization RxNorm: 038266 1 inhale INH Q4H as needed No Start Date 2014 Inactive amlodipine 5 mg Tab RxNorm: 359243 1 Tablet(s) PO daily No Start Date 03/07/2011 Inactive Namenda 5 mg Tab RxNorm: 486020 1 Tablet(s) PO daily No Start Date 06/23/2011 Inactive Allergy Relief (cetirizine) oral RxNorm: 643053 oral No Start Date 12/19/2016 Inactive fluocinonide 0.05 % Ointment RxNorm: 202393 1 TOP BID PRN No Start Date 12/24/2013 Inactive amlodipine 5 mg tablet RxNorm: 640868 1 Tablet(s) PO daily No Start Date 09/01/2014 Inactive lisinopril Oral RxNorm : Oral No Start Date 12/08/2011 Inactive simvastatin 20 mg Tab RxNorm: 632943 1 Tablet(s) PO daily No Start Date 06/06/2014 Inactive Bentyl 20 mg Tab RxNorm: 029849 1 Tablet(s) PO Q6 PRN No Start Date 06/23/[address] Quintero Bentyl 10 mg Cap RxNorm: 239673 1 Capsule(s) PO BID No Start Date 06/22/2011 Inactive Plavix 75 mg Tab RxNorm: 799613 1 Tablet(s) PO every other day No Start Date 08/24/2011 Inactive lorazepam 0.5 mg tablet RxNorm: 405550 1/2 Tablet(s) PO Q8 PRN No Start Date 02/01/2012 Inactive lisinopril 10 mg tablet RxNorm: 117803 1 Tablet(s) PO daily No Start Date 12/19/2011 Inactive Flomax 0.4 mg 24 hr Cap RxNorm: 495899 1 Capsule(s) PO daily No Start Date 05/28/2014 Inactive Aricept 5 mg Tab RxNorm: 140364 1 Tablet(s) PO daily No Start Date 07/13/2011 Inactive Levsin 0.125 mg tablet RxNorm: 9448789 1 Tablet(s) PO QID as needed FOR ABD PAIN No Start Date 11/04/2014 Inactive mirtazapine 7.5 mg tablet RxNorm: 451173 1/2 Tablet(s) PO daily No Start Date 08/29/2013 Inactive Mobic 15 mg Tab RxNorm : 801778 1 Tablet(s) PO daily No Start Date 07/13/2011 Inactive Medication Administered Medication Codes Instructions Start Date Status Kenalog 40 mg/mL suspension for injection RxNorm: 9035150 Milliliter 11/25/2016 No longer Active Influenza Virus Vaccine 0.5 mL RxNorm: 02/06/2013 No longer Active ZOSTAVAX 19,400 unit Sub-Q Soln RxNorm: 9289392 02/25/2011 No longer Active Pneumovax 23 25 mcg/0.5 mL Injection RxNorm: 567865 Milliliter 02/16/2011 No longer Active Influenza Virus [...] episode, 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 ICD-9: 311 03/05/2015 ESSENTIAL HYPERTENSION ICD-9: 401.9 12/04 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 GENERALIZED ANXIETY DISEASE ICD-9: 300.02 12/04/2014 IRRITABLE COLON ICD-9: 564.1 12/04/2014 Abdominal pain ICD-9: 789.00 09/24/2014 Hyponatremia ICD-9: [...] Source RIGHT ELBOW 02/18/2016 Body Fluid Crystals 861921 CRYSTALS, BODY FLUID 2015 Uric Acid Body Fluid 699375 URIC ACID- FLUID 4.3 mg/dL 2015 Metabolic [...] Ord15 CALCIUM 9.1 mg/dL 02/05/2016 Comp Metabolic Bpf854 NA 129 mEq/L 10/08/2015 Comp Metabolic Mmn813 K 4.7 mEq/L 10/08/2015 Comp Metabolic Sjh494 CL 98 mEq/L 10/08/2015 Comp Metabolic Tdp140 CO2 28.0 mEq/L 10/08/2015 Comp Metabolic Ieb742 ANION GAP 8 10/08/2015 Comp Metabolic Wve003 GLUCOSE 84 mg/dL 10/08/2015 Comp Metabolic Sqb405 Creat 1.3 mg/dL 10/08/2015 Comp Metabolic Sir850 eGFR 56 ml/min/1.73m2 10/08/2015 Comp Metabolic Kfx078 BUN 23 mg/dL 10/08/2015 Comp Metabolic Zgh148 B/C Ratio 17.8 Ratio 10/08/2015 Comp Metabolic Mvz413 CALCIUM 9.3 mg/dL 10/08/2015 Comp Metabolic Ygr980 ALK PHOS 68 U/L 10/08/2015 Comp Metabolic Zjn133 AST(SGOT) 24 U/L 10/08/2015 Comp Metabolic Fpq365 ALT(SGPT) 15 U/L 10/08/2015 Comp Metabolic Jrg081 BILI T 0.5 mg/dL 10/08/2015 Comp Metabolic Jkc285 ALBUMIN 4.0 g/dL 10/08/2015 Comp Metabolic Ddf834 TPRO 5.9 g/dL 10/08/2015 Comp Metabolic Jgi299 GLOB 1.9 g/dL 10/08/2015 Comp Metabolic Kmb255 A/G Ratio 2.1 Ratio 10/08/2015 Comp Metabolic Nhp292 Osmo 262 mOsmo 10/08/2015 Lipid Ord30 CHOL 134 mg/dL 10/08/2015 Lipid Ord30 HDL 56.0 mg/dl 10/08/2015 Lipid Ord30 TRIG 87 mg/dL 10/08/2015 Lipid Ord30 LDL 61 mg/dL 10/08/2015 Lipid Ord30 C/HDL 2.4 Ratio 10/08/2015 Lipid Ord30 CHOL 136 mg/dL 05/07/2015 Lipid Ord30 HDL 58.0 mg/dl 05/07/2015 Lipid Ord30 TRIG 78 mg/dL 05/07/2015 Lipid Ord30 LDL 62 mg/dL 05/07/2015 Lipid Ord30 C/HDL 2.3 Ratio 05/07/2015 Comp Metabolic Qlt012 NA 132 mEq/L 05/07/2015 Comp Metabolic Zey109 K 4.4 mEq/L 05/07/2015 Comp Metabolic Tql434 CL 97 mEq/L 05/07/2015 Comp Metabolic Ldg687 CO2 30.0 mEq/L 05/07/2015 Comp Metabolic Pqi440 ANION GAP 9 05/07/2015 Comp Metabolic Mnj996 GLUCOSE 78 mg/dL 05/07/2015 Comp Metabolic Ptm370 Creat 1.2 mg/dL 05/07/2015 Comp Metabolic Ebj769 eGFR 60 ml/min/1.73m2 05/07/2015 Comp Metabolic Ppr414 BUN 25 mg/dL 05/07/2015 Comp Metabolic Uir941 B/C Ratio 20.3 Ratio 05/07/2015 Comp Metabolic Pbr918 CALCIUM 9.6 mg/dL 05/07/2015 Comp Metabolic Top688 ALK PHOS 70 U/L 05/07/2015 Comp Metabolic Uhw875 AST(SGOT) 27 U/L 05/07/2015 Comp Metabolic Bza218 ALT(SGPT) 20 U/L 05/07/2015 Comp Metabolic Xfs688 BILI T 0.4 mg/dL 05/07/2015 Comp Metabolic Mwx624 ALBUMIN 4.0 g/dL 05/07/2015 Comp Metabolic Nim838 TPRO 5.8 g/dL 05/07/2015 Comp Metabolic Oee817 GLOB 1.8 g/dL 05/07/2015 Comp Metabolic Vmn986 A/G Ratio 2.3 Ratio 05/07/2015 Comp Metabolic Vqg546 Osmo 268 mOsmo 05/07/2015 Cbc With Differential Ord2 WBC 4.3 [...] 16.2 % 05/07/2015 Tsh Ord6 hTSH II 4.07 uIU/mL 05/07/2015 Comp Metabolic Xuo853 NA 134 mEq/L 12/10/2014 Comp Metabolic Mvg321 K 4.8 mEq/L 12/10/2014 Comp Metabolic Ero578 CL 101 mEq/L 12/10/2014 Comp Metabolic Odi592 CO2 30.0 mEq/L 12/10/2014 Comp Metabolic Nrf877 ANION GAP 8 12/10/2014 Comp Metabolic Tgq217 GLUCOSE 85 mg/dL 12/10/2014 Comp Metabolic Fmw265 Creat 1.2 mg/dL 12/10/2014 Comp Metabolic Rhf505 eGFR 65 ml/min/1.73m2 12/10/2014 Comp Metabolic Pqv381 BUN 25 mg/dL 12/10/2014 Comp Metabolic Hcq999 B/C Ratio 21.7 Ratio 12/10/2014 Comp Metabolic Jjm620 CALCIUM 9.5 mg/dL 12/10/2014 Comp Metabolic Iwt219 ALK PHOS 76 U/L 12/10/2014 Comp Metabolic Lnv862 AST(SGOT) 27 U/L 12/10/2014 Comp Metabolic Kbe480 ALT(SGPT) 18 U/L 12/10/2014 Comp Metabolic Meh501 BILI T 0.5 mg/dL 12/10/2014 Comp Metabolic Ugc564 ALBUMIN 4.1 g/dL 12/10/2014 Comp Metabolic Rym234 TPRO 5.7 g/dL 12/10/2014 Comp Metabolic Zgg777 GLOB 1.6 g/dL 12/10/2014 Comp Metabolic Yxl727 A/G Ratio 2.6 Ratio 12/10/2014 Comp Metabolic Tbo657 Osmo 272 mOsmo 12/10/2014 B12 Gyi368 B12 1011.00 pg/ml 12/10/2014 Lipid Ord30 CHOL 177 mg/dL 12/10/2014 Lipid Ord30 HDL 53.0 mg/dl 12/10/2014 Lipid Ord30 TRIG 76 mg/dL 12/10/2014 Lipid Ord30 LDL 109 mg/dL 12/10/2014 Lipid Ord30 C/HDL 3.3 Ratio 12/10/2014 Tsh Ord6 hTSH II 1.99 uIU/mL 12/10/2014 Cbc With Differential Ord2 WBC 3.3 [...] With Differential Ord2 RDW 14.3 % 12/10/2014 CBC [id number] WBC 4.1 10e9/L 02/19/2013 CBC [id number] RBC 4.39 10e12/L 02/19/2013 CBC 5332193 HGB 14.1 g/dL 02/19/2013 CBC [id number] HCT DET 41.0 % 02/19/2013 CBC [id number] MCV 93.4 fL 02/19/2013 CBC [id number] MCH 32.1 pg 02/19/2013 CBC 2158925 MCHC 34.4 g/dL 02/19/2013 CBC [id number] PLT 151 10e9/L 02/19/2013 CBC 9292215 MPV 11.8 fL 02/19/2013 CBC [id number] YOVANNY % 63.2 % 02/19/2013 CBC [id number] LY % 22.9 % 02/19/2013 CBC 5132309 MON % 11.5 % 02/19/2013 CBC 0056008 EOS % 2.2 % 02/19/2013 CBC 1822401 BASO % 0.2 % 02/19/2013 CBC 4558276 RDW 13.8 % 02/19/2013 CBC [id number] ABS YOVANNY 2.59 10e9/L 02/19/2013 CBC 3077054 ABS LYMPH 0.94 10e9/L 02/19/2013 CBC 0803443 ABS MONO 0.47 10e9/L 02/19/2013 CBC 2618941 ABS EOS 0.09 10e9/L 02/19/2013 CBC 9222629 ABS BASO 0.01 10e9/L 02/19/2013 CBC 5994052 RDW-SD 46.0 fL 02/19/2013 TSH 0377669 TSH 2.094 uIU/ML 02/19/2013 FREE T4 4796781 FREE T4 1.18 NG/DL 02/19/2013 GFR CALC 9833817 GFR AA >60 ML/MIN 02/19/2013 GFR CALC 9106859 GFR NON-AA >60 ML/MIN 02/19/2013 CHEM 14 1394368 AST 30 U/L 02/19/2013 CHEM 14 2616145 ALT 19 IU/L 02/19/2013 CHEM 14 5299093 BUN 21 MG/DL 02/19/2013 CHEM 14 [id number] ALBUMIN 4.4 GM/DL 02/19/2013 CHEM 14 5855831 CHLORIDE 94 MMOL/L 02/19/2013 CHEM 14 6204244 BILI TOT 0.5 MG/DL 02/19/2013 CHEM 14 0270694 ALK PHOS 75 U/L 02/19/2013 CHEM 14 [id number] SODIUM 133 MMOL/L 02/19/2013 CHEM 14 1911203 CREATININE 1.07 MG/DL 02/19/2013 CHEM 14 1125040 CALCIUM 9.6 MG/DL 02/19/2013 CHEM 14 9535952 POTASSIUM 4.6 MMOL/L 02/19/2013 CHEM 14 6232621 PROT TOT 6.1 GM/DL 02/19/2013 CHEM 14 9772587 GLUCOSE 94 MG/DL 02/19/2013 CHEM 14 3617648 BICARB 31 MMOL/L 02/19/2013 CHEM 14 0389335 ANION GAP 8 MEQ/L 02/19/2013 UA 08041 Specific [place] 1.015 DateTime(Free Text in Aprima ) UA 70350 PH 6 DateTime(Free Text in Aprima) UA 38958 GLUCOSE neg DateTime(Free Text in Aprima) UA 91451 Protein neg DateTime(Free Text in Aprima) UA 89023 Blood neg DateTime(Free Text in Aprima) UA 83422 Bilirubin neg DateTime(Free Text in Aprima) UA 79027 Ketones neg DateTime(Free Text in Aprima) UA 65024 Urobilinogen neg DateTime(Free Text in Aprima) UA 72770 Nitrite neg DateTime(Free Text in Aprima) UA 08670 Leukocytes neg DateTime(Free Text in Aprima) Review of Systems System Result Effective Dates [...] benign 06/18/2013 None Full Exam - General 1995 [...] 1994 Ears/Nose/Throat oral cavity/pharynx/larynx Overall: no masses 02/19/2013 [...] clear 10/16/2012 None Full Exam - General 1995 Ears/Nose/Throat [...] atraumatic 10/16/2012 None Full Exam - General 1994 Musculoskeletal head and neck Overall: cervical spine benign 10/16/2012 None Full Exam - General 1994 Neurologic gait Overall: no ataxia, no unsteadiness 10/16/2012 None Full Exam - General 1994 Psychiatric orientation/consciousness Overall: oriented to person, place and time 10/16/2012 None Full Exam - General 1994 Psychiatric mood and affect Overall: normal mood and affect 10/16/2012 None Full Exam - General 1994 Constitutional general appearance Overall: well developed 06/19/2012 [...] 1994 Ears/Nose/Throat oral cavity/pharynx/larynx Overall: no masses 06/19/2012 [...] 06/19/2012 None Full Exam - General 1995 Abdomen abdominal exam Overall: no tenderness 06/19/2012 None Full Exam - General 1995 Abdomen [...] 01/15/2011 None Full Exam - General 1995 Eyes conjunctiva /eyelids Overall: eyelids normal 01/15/2011 [...] lesions 01/15/2011 None Full Exam - General 1995 Neck inspection of neck Overall: normal size 01/15/2011 None Full Exam - General 1995 Neck inspection of neck Overall: normal appearance [...] hepatosplenomegaly 01/15/2011 None Full Exam - General 1995 Lymphatic neck nodes Overall: anterior cervical chain [...] clear 01/06/2011 None Full Exam - General 1995 Ears/Nose/Throat lips/teeth/gingiva Overall: benign lips 01/06/2011 None Full Exam - General 1995 Ears/Nose/Throat lips/teeth/gingiva Overall: normal dentition 01/06/2011 None Full Exam - General 1995 Ears/Nose/Throat lips/teeth/gingiva Overall: no masses 01/06/2011 None [...] FLU VACC PRSV FREE INC ANTIG CPT-4: 76991 01/25/2017 THER/PROPH/DIAG INJ SC/IM CPT-4: 15426 11/25/2016 TRIAMCINOLONE ACET INJ NOS CPT-4: J3301 11/25/2016 DRAIN/INJECT JOINT/BURSA CPT-4: 38651 02/17/2016 IMMUNIZATION ADMIN CPT -4: 76101 05/06/2015 PNEUMOCOCCAL VACC 13 TIFFANIE IM Formatting Model/CDA Sections, Assigned to/Celia Minaya SNOMED CT: 85539641 CPT-4: 59270Orbgctz 05/06/2015 ADMIN INFLUENZA VIRUS VAC CPT-4: G0008 02/19/2015 FLU VACC 4 TIFFANIE 3 YRS PLUS IM Formatting Model/CDA Sections, Assigned to SNOMED CT: 73901483 CPT-4: 77801Ssyhero 02/19/2015 URINALYSIS NONAUTO W/O SCOPE CPT-4: 66254 05/23/2014 ADMIN INFLUENZA VIRUS VAC CPT-4: G0008 03/26/2014 FLU VAC NO PRSV 4 TIFFANIE 3 YRS+ Assigned to/Celia Minaya CPT-4: 24059Quyvfyh 03/26/2014 PRESCRIP TRANSMIT VIA ERX SY CPT-4: G8553 04/04/2013 ROUTINE VENIPUNCTURE CPT-4: 51555 02/19/2013 ADMIN INFLUENZA VIRUS VAC CPT-4: G0008 02/06/2013 FLULAVAL VACC, 3 YRS & >, IM CPT-4: Q2036 02/06/2013 29001 EST. PATIENT, LEVEL IV CPT-4: 79440 06/19/2012 PRESCRIP TRANSMIT VIA ERX SY CPT-4: G8553 06/19/2012 PRESCRIP TRANSMIT VIA ERX SY CPT-4: G8553 03/20/2012 PRESCRIP TRANSMIT VIA ERX SY CPT-4: G8553 06/23/2011 IMMUNIZATION ADMIN CPT -4: 96444 02/25/2011 ZOSTER VACC SC (No charge, patient supplied vaccine) CPT-4: 08053TD 02/25/2011 ADMIN PNEUMOCOCCAL VACCINE SNOMED CT: 51214499 CPT-4: G0009 02/16/2011 Pneumococcal Polysaccharide Vaccine, 23-Valent, Ad CPT-4: 48620 02/16/2011 ADMIN INFLUENZA VIRUS VAC CPT-4: G0008 02/09/2011 FLULAVAL VACC, 3 YRS & >, IM CPT-4: Q2036 02/09/2011 PRESCRIP TRANSMIT VIA ERX SY CPT-4: G8553 02/01/2011 URINALYSIS NONAUTO W/O SCOPE CPT-4: 58591 01/27/2011 Vital Signs Date Vital 03/21/2017 Blood Pressure 1: 128/66 Code : 8480-6 BMI: 20.8 Code : 35024-0 Heart Rate 1 : 61 bpm Height: 5'9" SpO2: 98% Weight: 141 lbs 03/08/2017 Blood Pressure 1: 134/68 Code : 8480-6 BMI: 20.4 Code : 91110-6 Heart Rate 1 : 56 bpm Height: 5'9" SpO2: 99% Weight: 138 lbs 01/25/2017 Blood Pressure 1: 98/62 Code : 8480-6 BMI: 20.6 Code : 33009-6 Heart Rate 1 : 71 bpm Height: 5'9" SpO2: 97% Weight: 139 lbs 8 oz 12/20/2016 Blood Pressure 1: 120/68 Code : 8480-6 BMI: 20.4 Code : 56071-2 Heart Rate 1 : 70 bpm Height: [...] Code : 8480-6 BMI: 20.7 Code : 58680-5 Heart Rate 1 : 74 bpm Height: 5'9" SpO2: 95% Weight: 140 lbs 08/23/2016 Blood Pressure 1: 118/68 Code : 8480-6 BMI: 20.8 Code : 31660-0 Heart Rate 1 : 54 bpm Height: 5'9" SpO2: 97% Weight: 141 lbs 04/26/2016 Blood Pressure 1: 108/64 Code : 8480-6 BMI: 21.0 Code : 28165-0 Heart Rate 1 : 62 bpm Height: 5'9" SpO2: 95% Weight: 142 lbs 02/17/2016 Blood Pressure 1: 138/80 Code : 8480-6 BMI: 20.2 Code : 44922-1 Heart Rate 1 : 76 bpm Height: 5'9" SpO2: 97% Weight: 137 lbs 02/09/2016 Blood Pressure 1: 140/76 Code : 8480-6 BMI: 20.2 Code : 30505-5 Heart Rate 1 : 72 bpm Height: 5'9" SpO2: 96% Weight: 137 lbs 02/03/2016 Blood Pressure 1: 136/80 Code : 8480-6 BMI: 20.7 Code : 00443-5 Heart Rate 1 : 86 bpm Height: 5'9" SpO2: 96% Weight: 140 lbs 01/26/2016 Blood Pressure 1: 144/78 Code : 8480-6 BMI: 20.7 Code : 50529-0 Heart Rate 1 : 73 bpm Height: 5'9" SpO2: 97% Temperature: 37.0 (C) / 98.6 (F) Weight: 140 lbs 01/21/2016 Blood Pressure 1: 116/62 Code : 8480-6 BMI: 20.4 Code : 12370-4 Heart Rate 1 : 66 bpm Height: 5'9" SpO2: 97% Weight: 138 lbs 12/29/2015 Blood Pressure 1: 130/74 Code : 8480-6 BMI: 20.4 Code : 84539-4 Heart Rate 1 : 51 bpm Height: 5'9" SpO2: 98% Weight: 138 lbs 09/02/2015 Blood Pressure 1: 126/60 Code : 8480-6 BMI: 22.3 Code : 59054-5 Heart Rate 1 : 55 bpm Height: 5'9" SpO2: 96% Weight: 151 lbs 05/06/2015 Blood Pressure 1: 132/72 Code : 8480-6 BMI: 21.0 Code : 48032-5 Heart Rate 1 : 63 bpm Height: 5'9" SpO2: 97% Weight: 142 lbs 03/05/2015 Blood Pressure 1: 130/68 Code : 8480-6 BMI: 21.0 Code : 94592-7 Heart Rate 1 : 61 bpm Height: 5'9" SpO2: 96% Weight: 142 lbs 12/04/2014 Blood Pressure 1: 122/64 Code : 8480-6 BMI: 21.3 Code : 72659-9 Heart Rate 1 : 72 bpm Height: 5'9" Weight: 144 lbs 09/24/2014 Blood Pressure 1: 142/80 Code : 8480-6 BMI: 20.4 Code : 34965-9 Heart Rate 1 : 80 bpm Height: 5'9" Weight: 138 lbs 09/09/2014 Blood Pressure 1: 122/74 Code : 8480-6 BMI: 20.5 Code : 62649-4 Heart Rate 1 : 64 bpm Height: 5'9" Weight: 139 lbs 07/26/2014 Blood Pressure 1: 136/82 Code : 8480-6 BMI: 20.4 Code : 23635-4 Heart Rate 1 : 87 bpm Height: 5'9" SpO2: 92% Weight: 138 lbs 07/10/2014 Blood Pressure 1: 130/74 Code : 8480-6 BMI: 21.1 Code : 64790-5 Heart Rate 1 : 64 bpm Height: 5'9" Weight: 143 lbs 06/06/2014 Blood Pressure 1: 142/88 Code : 8480-6 BMI: 20.4 Code : 15838-3 Heart Rate 1 : 68 bpm Height: 5'9" Weight: 138 lbs 05/29/2014 Blood Pressure 1: 108/72 Code : 8480-6 BMI: 20.5 Code : 32065-1 Heart Rate 1 : 60 bpm Height: 5'9" Weight: 139 lbs 05/20/2014 Blood Pressure 1: 140/72 Code : 8480-6 BMI: 21.6 Code : 06667-8 Heart Rate 1 : 60 bpm Height: 5'9" SpO2: 98% Temperature: 36.2 (C) / 97.2 (F) Weight: 146 lbs 03/25/2014 Blood Pressure 1: 128/60 Code : 8480-6 BMI: 21.4 Code : 79454-0 Heart Rate 1 : 62 bpm Height: 5'9" Weight: 145 lbs 02/08/2014 Blood Pressure 1: 136/82 Code : 8480-6 BMI: 21.3 Code : 41769-5 Heart Rate 1 : 68 bpm Height: 5'9" Weight: 144 lbs 12/24/2013 Blood Pressure 1: 122/76 Code : 8480-6 BMI: 21.6 Code : 86514-3 Heart Rate 1 : 58 bpm Height: 5'9" Weight: 146 lbs 11/20/2013 Blood Pressure 1: 112/62 Code : 8480-6 BMI: 20.7 Code : 79490-0 Heart Rate 1 : 56 bpm Height: 5'9" Weight: 140 lbs 10/30/2013 Blood Pressure 1: 130/68 Code : 8480-6 BMI: 20.1 Code : 43309-7 Heart Rate 1 : 68 bpm Height: 5'9" SpO2: 96% Weight: 136 lbs 10/08/2013 Blood Pressure 1: 128/72 Code : 8480-6 BMI: 20.8 Code : 82345-9 Heart Rate 1 : 60 bpm Height: 5'9" Temperature: 36.6 (C) / 97.8 (F) Weight: 141 lbs 06/18/2013 Blood Pressure 1: 124/78 Code : 8480-6 BMI: 20.8 Code : 15181-7 Heart Rate 1 : 64 bpm Height: 5'9" Weight: 141 lbs 04/04/2013 Blood Pressure 1: 138/60 Code : 8480-6 BMI: 20.8 Code : 53810-1 Heart Rate 1 : 56 bpm Height: 5'9" Weight: 141 lbs 02/19/2013 Blood Pressure 1: 152/74 Code : 8480-6 BMI: 21.0 Code : 45016-1 Heart Rate 1 : 60 bpm Height: 5'9" Weight: 142 lbs 10/16/2012 Blood Pressure 1: 122/70 Code : 8480-6 BMI: 20.8 Code : 26302-9 Heart Rate 1 : 64 bpm Height: 5'9" Weight: 141 lbs 06/19/2012 Blood Pressure 1: 120/72 Code : 8480-6 BMI: 21.1 Code : 35015-5 Heart Rate 1 : 60 bpm Height: 5'9" Weight: 143 lbs 03/20/2012 Blood Pressure 1: 114/76 Code : 8480-6 Heart Rate 1: 60 bpm Respiratory Rate : 16 bpm Weight: 143 lbs 01/24/2012 Blood Pressure 1: 134/70 Code : 8480-6 Heart Rate 1: 64 bpm Weight: 143 lbs 12/20/2011 Blood Pressure 1: 98/72 Code : 8480-6 BMI: 21.1 Code : 28105-8 Heart Rate 1 : 60 bpm Height: 5'9" Respiratory Rate: 16 bpm Weight: 143 lbs 12/09/2011 Blood Pressure 1: 110/60 Code : 8480-6 Heart Rate 1: 66 bpm SpO2: 98% Weight: 141 lbs 08/25/2011 Blood Pressure 1: 112/70 Code : 8480-6 BMI: 20.8 Code : 79147-3 Heart Rate 1 : 54 bpm Height: 5'9" Respiratory Rate: 16 bpm Weight: 141 lbs 06/23/2011 Blood Pressure 1: 126/64 Code : 8480-6 Heart Rate 1: 60 bpm Respiratory Rate : 16 bpm Weight: 142 lbs 04/19/2011 Blood Pressure 1: 124/64 Code : 8480-6 BMI: 21.1 Code : 15272-0 Heart Rate 1 : 64 bpm Height: 5'9" Respiratory Rate: 16 bpm Weight: 143 lbs 03/23/2011 Blood Pressure 1: 137/71 Code : 8480-6 Heart Rate 1: 57 bpm 03/08/2011 Blood Pressure 1: 154/70 Code : 8480-6 BMI: 20.8 Code : 66019-7 Heart Rate 1 : 60 bpm Height: 5'9" Respiratory Rate: 16 bpm Weight: 141 lbs 03/01/2011 Blood Pressure 1: 178/80 Code : 8480-6 Blood Pressure 2: 168/70 Code: 8480-6 BMI: 24.1 Code: 65075-1 Heart Rate 1: 60 bpm Height: 5'9" Respiratory Rate: 16 bpm Weight: 163 lbs 02/01/2011 Blood Pressure 1: 162/84 Code : 8480-6 Heart Rate 1: 60 bpm Respiratory Rate : 16 bpm Weight: 144 lbs 01/27/2011 Blood Pressure 1: 138/54 Code : 8480-6 BMI: 21.1 Code : 77075-3 Heart Rate 1 : 68 bpm Height: 5'9" Respiratory Rate: 16 bpm Weight: 143 lbs 01/26/2011 Blood Pressure 1: 148/86 Code : 8480-6 BMI: 21.3 Code : 09113-1 Heart Rate 1 : 74 bpm Height: 5'9" Weight: 144 lbs 01/15/2011 Blood Pressure 1: 136/76 Code : 8480-6 BMI: 20.5 Code : 52157-7 Heart Rate 1 : 70 bpm Height: 5'10" Weight: 141 lbs 01/06/2011 Blood Pressure 1: 148/72 Code : 8480-6 BMI: 20.2 Code : 70822-4 Heart Rate 1 : 72 bpm Height: [...] data Encounters Encounter Performer Location Codes Date ([id number]) 02433 EST. PATIENT, LEVEL III Diagnosis: Essential (primary) hypertension[ICD10: I10] Ale Carlos MD, [facility] CPT-4: 25102 03/21/2017 62152 EST. PATIENT, LEVEL III Diagnosis: Other allergic rhinitis[ICD10: J30.89] Nelly Carlos MD, [facility] CPT-4: 07998 03/08/2017 ([id number]) 65357 EST. PATIENT, LEVEL III Diagnosis: Encounter for immunization[ICD10: Z23] Diagnosis: Other hypotension[ICD10: I95.89] Ale Carlos MD, [facility] CPT-4: 77916 01/25/2017 ([id number]) 38346 EST. PATIENT, LEVEL III Diagnosis: Essential (primary) hypertension[ICD10: I10] Diagnosis: Acute recurrent maxillary sinusitis[ICD10: J01.01] Ale Carlos MD, [facility] CPT-4: 64660 12/20/2016 ([id number]) 43453 EST. PATIENT, LEVEL III Diagnosis: Acute recurrent ethmoidal sinusitis[ICD10: J01.21] Ale Carlos MD, [facility] CPT-4: 15619 12/01/2016 ([id number]) 89345 EST. PATIENT, LEVEL III Diagnosis: Bronchitis, not specified as acute or chronic[ICD10: J40] Diagnosis: Cough[ICD10: R05] Ale Carlos MD [facility] CPT-4: 13837 11/25/2016 ([id number]) 05435 EST. PATIENT, LEVEL III Diagnosis: Cough[ICD10: R05] Diagnosis: Bronchitis, not specified as acute or chronic[ICD10: J40] Diagnosis: Candidal esophagitis[ICD10: B37.81] Ale Carlos MD [facility] CPT-4: 97884 11/18/2016 ([id number]) 20287 EST. PATIENT, LEVEL IV Diagnosis: Essential (primary) hypertension[ICD10: I10] Diagnosis: Mild cognitive impairment, so stated[ICD10: G31.84] Ale Carlos MD [facility] CPT-4: 82141 08/23/2016 ([id number]) 83501 EST. PATIENT, LEVEL III Diagnosis: Essential (primary) hypertension[ICD10: I10] Ale Carlos MD [facility] CPT-4: 77007 04/26/2016 ([id number]) Miscellaneous no charge Diagnosis: Olecranon bursitis, right elbow[ICD10: M70.21] Nelly Carlos MD, [facility] CPT-4: 95045 02/09/2016 ([id number]) 50416 EST. PATIENT, LEVEL III Diagnosis: Olecranon bursitis, right elbow[ICD10: M70.21] Nelly Carlos MD [facility] CPT-4: 74020 02/03/2016 ([id number]) 42244 EST. PATIENT, LEVEL III Diagnosis: Generalized abdominal tenderness[ICD10: R10.817] Ale Carlos MD, [facility] CPT-4: 44577 01/26/2016 96887 EST. PATIENT, LEVEL IV Diagnosis: Other allergic rhinitis[ICD10: J30.89] Ruchi Carlos MD, [facility] CPT-4: 31315 01/21/2016 ([id number]) 00077 EST. PATIENT, LEVEL IV Diagnosis: Essential (primary) hypertension[ICD10: I10] Diagnosis: Hypo-osmolality and hyponatremia[ICD10: E87.1] Ale Carlos MD, [facility] CPT-4: 94369 12/29/2015 ([id number]) 86960 EST. PATIENT, LEVEL IV Diagnosis: Essential (primary) hypertension[ICD10: I10] Diagnosis: Mild cognitive impairment, so stated[ICD10: G31.84] Ale Carlos MD, [facility] CPT-4: 77449 09/02/2015 ([id number]) 33808 EST. PATIENT, LEVEL IV Diagnosis: Mixed hyperlipidemia[ICD10: E78.2] Diagnosis: Generalized anxiety disorder[ICD10: F41.1] Diagnosis: Mild cognitive impairment, so stated[ICD10: G31.84] Diagnosis: Essential (primary) hypertension[ICD10: I10] Diagnosis: Encounter for immunization[ICD10: Z23] Ale Carlos MD, [facility] CPT-4: 86596 05/06/2015 ([id number]) 03662 EST. 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 PATIENT, LEVEL IV Diagnosis: ESSENTIAL HYPERTENSION[ICD9: 401.9] Diagnosis: GENERALIZED ANXIETY DISEASE[ICD9: 300.02] Diagnosis: MILD COGNITIVE IMPAIREMT[ICD9: 331.83] Diagnosis: IRRITABLE COLON[ICD9: 564.1] Ale Carlos MD, [facility] CPT- 4: 36104 12/04/2014 ([id number]) 13633 EST. PATIENT, LEVEL IV Diagnosis: Abdominal pain[ICD9: 789.00] Diagnosis: GENERALIZED ANXIETY DISEASE[ICD9: 300.02] Diagnosis: Hyponatremia[ICD9: 276.1] Diagnosis: ESSENTIAL HYPERTENSION[ICD9: 401.9] Nelly Carlos MD, [facility] CPT-4: 19726 09/24/2014 ([id number]) 33718 EST. PATIENT, LEVEL IV Diagnosis: ESSENTIAL HYPERTENSION[ICD9: 401.9] Diagnosis: Osteoarthritis[ICD9: 715.90] Diagnosis: Mild cognitive impairment with memory loss[ICD9: 331.83] Ale Carlos MD, [facility] CPT-4: 13965 09/09/2014 ([id number]) 29166 EST. PATIENT, LEVEL III Diagnosis: GENERALIZED ANXIETY DISEASE[ICD9: 300.02] Diagnosis: Depression[ICD9: 311] Ale Carlos MD [facility] CPT-4: 17271 07/26/2014 ([id number]) 85046 EST. PATIENT, LEVEL IV Diagnosis: ESSENTIAL HYPERTENSION[ICD9: 401.9] Diagnosis: GENERALIZED ANXIETY DISEASE[ICD9: 300.02] Diagnosis: MILD COGNITIVE IMPAIREMT[ICD9: 331.83] Ale Carlos MD, [facility] CPT-4: 95964 07/10/2014 ([id number]) 64918 EST. PATIENT, LEVEL IV Diagnosis: Dizziness[ICD9: 780.4] Diagnosis: GENERALIZED ANXIETY DISEASE[ICD9: 300.02] Diagnosis: Depression[ICD9: 311] Diagnosis: ESSENTIAL HYPERTENSION[ICD9: 401.9] Diagnosis: Urinary frequency[ICD9: 788.41] Ale Carlos MD, [facility] CPT- 4: 08604 06/06/2014 ([id number]) 76470 EST. PATIENT, LEVEL IV Diagnosis: ESSENTIAL HYPERTENSION[ICD9: 401.9] Diagnosis: GENERALIZED ANXIETY DISEASE[ICD9: 300.02] Diagnosis: Mild cognitive impairment with memory loss[ICD9: 331.83] Ale Carlos MD, [facility] CPT-4: 03173 05/29/2014 ([id number]) 71671 EST. PATIENT, LEVEL IV Diagnosis: Pneumonia[ICD9: 486] Diagnosis: COUGH[ICD9: 786.2] Diagnosis: Hyponatremia[ICD9: 276.1] Diagnosis: ALLERGIC RHINITIS[ICD9: 477.9] Ale Carlos MD, [facility] CPT- 4: 99200 05/20/2014 ([id number]) 93470 EST. PATIENT, LEVEL III Diagnosis: ESSENTIAL HYPERTENSION[ICD9: 401.9] Diagnosis: Cough[ICD9: 786.2] Ale Carlos MD, [facility] CPT-4: 75937 03/25/2014 ([id number]) 53998 EST. PATIENT, LEVEL III Diagnosis: COUGH[ICD9: 786.2] Diagnosis: ALLERGIC RHINITIS[ICD9: 477.9] Nelly Carlos MD, [facility] CPT-4: 72514 02/08/2014 ([id number]) 92147 EST. PATIENT, LEVEL III Diagnosis: ESSENTIAL HYPERTENSION[ICD9: 401.9] Diagnosis: Nasal congestion[ICD9: 478.19] Ale Carlos MD, [facility] CPT- 4: 69373 12/24/2013 ([id number]) 82967 EST. PATIENT, LEVEL III Diagnosis: Seasonal allergies[ICD9: 477.9] Diagnosis: Nasal congestion[ICD9: 478.19] Diagnosis: ABNORMAL LOSS OF WEIGHT[ICD9: 783.21] Ale Carlos MD, [facility] CPT-4: 13987 11/20/2013 ([id number]) 71292 EST. PATIENT, LEVEL III Diagnosis: ABNORMAL LOSS OF WEIGHT[ICD9: 783.21] Diagnosis: MALAISE AND FATIGUE[ICD9: 780.79] Diagnosis: Hyponatremia[ICD9: 276.1] Nelly Carlos MD, [facility] CPT-4: 99174 10/30/2013 ([id number]) 92982 EST. PATIENT, LEVEL III Diagnosis: Acute maxillary sinusitis[ICD9: 461.0] Diagnosis: COUGH[ICD9: 786.2] Ale Carlos MD, [facility] CPT-4: 42483 10/08/2013 ([id number]) 68303 EST. PATIENT, LEVEL IV Diagnosis: ESSENTIAL HYPERTENSION[SNOMED: 37481365] Diagnosis: GENERALIZED ANXIETY DISEASE[ICD9: 300.02] Diagnosis: OSTEOARTH NOS-UNSPEC[ICD9: 715.90] Diagnosis: Coronary artery disease[ICD9: 414.00] lAe Carlos MD, [facility] CPT-4: 13722 06/18/2013 ([id number]) 76043 EST. PATIENT, LEVEL III Diagnosis: ESSENTIAL HYPERTENSION[SNOMED: 53777547] Ale Carlos MD, [facility] CPT-4: 33017 04/04/2013 ([id number]) 91212 EST. PATIENT, LEVEL IV Diagnosis: ESSENTIAL HYPERTENSION[SNOMED: 41330104] Diagnosis: Leukopenia[ICD9: 288.50] Diagnosis: Encounter for long-term (current) use of other medications[ICD9: V58.69] Ale Carlos MD [facility] CPT-4: 92144 2012 ([id number]) 77236 EST. PATIENT, LEVEL IV Diagnosis: ESSENTIAL HYPERTENSION[SNOMED: 90149740] Diagnosis: MILD COGNITIVE IMPAIREMT[ICD9: 331.83] Ale Carlos MD [facility] CPT-4: 70302 10/16/2012 ([id number]) 80728 EST. PATIENT, LEVEL IV Diagnosis: ESSENTIAL HYPERTENSION[SNOMED: 47890204] Diagnosis: GENERALIZED ANXIETY DISEASE[ICD9: 300.02] Diagnosis: IRRITABLE COLON[ICD9: 564.1] Ale Carlos MD [facility] CPT- 4: 34316 03/20/2012 81437 EST. PATIENT, LEVEL IV Diagnosis: ESSENTIAL HYPERTENSION[SNOMED: 39105758] Diagnosis: Osteoarthritis[ICD9: 715.90] Diagnosis: HYPERLIPIDEMIA[ICD9: 272.4] Ale Carlos MD [facility] CPT- 4: 03024 01/24/2012 90173 EST. PATIENT, LEVEL IV Diagnosis: ESSENTIAL HYPERTENSION[SNOMED: 59036616] Diagnosis: BPH W URINARY OBS/LUTS[ICD9: 600.01] Ale Carlos MD, [facility] CPT-4: 80694 12/20/2011 ([id number]) 02592 EST. PATIENT, LEVEL III Diagnosis: Lump in the groin[ICD9: 789.30] Ale Carlos MD [facility] CPT- 4: 66327 12/09/2011 ([id number]) 55335 EST. PATIENT, LEVEL IV Diagnosis: ESSENTIAL HYPERTENSION[SNOMED: 57500587] Diagnosis: Mild cognitive impairment[ICD9: 331.83] Ale Carlos MD [facility] CPT-4: 27081 08/25/2011 ([id number]) 88861 EST. PATIENT, LEVEL IV Diagnosis: ESSENTIAL HYPERTENSION[SNOMED: 74614086] Diagnosis: GENERALIZED ANXIETY DISEASE[ICD9: 300.02] Diagnosis: MILD COGNITIVE IMPAIREMT[ICD9: 331.83] Diagnosis: IRRITABLE COLON[ICD9: 564.1] Ale Carlos MD, [facility] CPT- 4: 54911 06/23/2011 ([id number]) 93165 EST. 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 PATIENT, LEVEL I Diagnosis: ESSENTIAL HYPERTENSION[SNOMED: 99971890] Ale Carlos MD, [facility] CPT-4: 63701 03/23/2011 43430 EST. PATIENT, LEVEL III Diagnosis: ESSENTIAL HYPERTENSION[SNOMED: 21626058] Diagnosis: Laceration of finger, index[ICD9: 883.0] Ale Carlos MD, [facility] CPT-4: 08603 03/08/2011 57061 EST. PATIENT, LEVEL III Diagnosis: ESSENTIAL HYPERTENSION[SNOMED: 17865110] Diagnosis: Irritable bowel syndrome (IBS)[ICD9: 564.1] Ale Carlos MD, [facility] CPT-4: 40234 03/01/2011 65607 EST. PATIENT, LEVEL IV Diagnosis: Mild cognitive impairment with memory loss[ICD9: 331.83] Diagnosis: GENERALIZED ANXIETY DISEASE[ICD9: 300.02] Diagnosis: Bruising[ICD9: 924.9] Diagnosis: HYDROCELE[ICD9: 603.9] Ale Carlos MD, [facility] CPT-4: 84948 02/01/2011 99838 EST. PATIENT, LEVEL III Diagnosis: Testicular pain[ICD9: 608.9] Diagnosis: GENERALIZED ANXIETY DISEASE[ICD9: 300.02] Nelly Carlos MD, [facility] CPT-4: 05604 01/27/2011 43344 EST. PATIENT, LEVEL III Diagnosis: Arm bruise[ICD9: 923.9] Nelly Carlos MD, [facility] CPT-4: 76994 01/26/2011 OFFICE VISIT, NEW - LEVEL 4 Diagnosis: DIARRHEA[ICD9: 787.91] Diagnosis: Elevated liver function tests[ICD9: 790.6] Diagnosis: Abdominal discomfort[ICD9: 789.00] [facility] CPT-4: 80774 01/06/2011 Plan of Care Planned Activity Notes Codes Status Date Visit Plan: Hypertension - well controlled - continue with current medications, continue with no added salt diet. Pt has been encouraged to exercise daily. The pt has been advised to call the office if there are any acute concerns about change in blood pressure readings at home. 03/21/2017 Appointment: Ale Carlos WPtel: [phone] [facility] (30 min) Complex 03/21/2017 Patient Education: Patient [...] spray. 03/08/2017 Appointment: Nelly Keen WPtel: [phone] [phone] (30 min) Complex 03/08/2017 Patient Education: Patient [...] flu shot 01/25/2017 Appointment: Ale Carlos WPtel: [facility] (30 min) Complex 01/25/2017 Patient Education: [...] not improving. 12/20/2016 Appointment: Ale Carlos WPtel: [address] [place] [address] (30 min) Complex 12/20/2016 Patient Education: Patient Medication Summary Completed 12/20/2016 Patient Education: Hypertension Completed 12/20/2016 Appointment: Ruchi Agee WPtel: [address] [place] [phone] - Annual Wellness Visit 12/03/2016 Visit Plan: [...] acutely worsen. 11/25/2016 Appointment: Ale Carlos WPtel: [address] [place] [address] (15 min) Moderate 11/25/2016 Patient Education: Patient [...] have thrush. 11/18/2016 Appointment: Ale Carlos WPtel: [facility] (15 min) Moderate 11/18/2016 Patient Education: Patient [...] and namenda. labs to be done from [facility] 08/23/2016 Appointment: Ale Carlos WPtel: [phone] [id number] (30 min) Complex 08/23/2016 Patient Education: [...] at home. 04/26/2016 Appointment: Ale Carlos WPtel: [facility]5 [facility] (30 min) Complex 04/26/2016 Patient Education: Patient Medication Summary Completed 04/26/2016 Visit Plan: Joint effusion - recommended drainage and referral to orthopedic surgeon for surgical debridement of bursa 02/17/2016 Appointment: Ale Carlos WPtel: [facility]5 [id number] (30 min) Complex 02/17/2016 Patient Education: Patient Medication Summary Completed 02/17/2016 Visit Plan: Bursitis-right elbow-drained today in the office-increase anti inflammatories for the next 5 days as directed-call if symptoms do not resolve, swelling returns or new symptoms develop-patient verbalized understanding of plan. 02/09/2016 Appointment: Nelly Keen WPtel: [facility]5 [phone] [place] (30 min) Complex 02/09/2016 Patient Education: Patient Medication Summary Completed 02/09/2016 Patient Education: Patient Medication Summary Completed 02/05/2016 Care Plan: Metabolic Pending 02/05/2016 Visit Plan: Bursitis-right elbow-drained today in the office-increase anti inflammatories for the next 5 days as directed-call if symptoms do not resolve, swelling returns or new symptoms develop-patient verbalized understanding of plan. 02/03/2016 Appointment: Nelly Keen WPtel: [facility]0 [phone] [place] (30 min) Complex 02/03/2016 Patient Education: Patient Medication Summary Completed 02/03/2016 Patient Education: Patient Medication Summary Completed 01/30/2016 Care Plan: Metabolic Due on Pending 01/30/2016 Visit Plan: Abdominal pain - nausea - Pt to have IV fluids at hospital 01/26/2016 Appointment: Ale Carlos WPtel: [phone] [facility] (30 min) Complex 01/26/2016 Patient Education: [...] spray. 01/21/2016 [phone] [place] ([place] min) Complex 01/21/2016 Patient Education: Patient [...] treatment. 09/02/2015 [facility]ment: [phone] (15 min) Moderate 09/02/2015 Patient Education: [...] today 05/06/2015 Appointment: [phone] (15 min) Moderate 05/06/2015 Patient Education: Patient Medication Summary Completed 05/06/2015 Patient Education: Hypertension Completed 05/06/2015 Care Plan: COMPLETE CBC AUTOMATED LOINC : 91068-7 Ordered 05/06/2015 Visit Plan: Hypertension - well [...] medications. 03/05/2015 Appointment: [phone] ([facility] [place]) Complex 03/05/2015 Patient Education: Patient [...] -has improved. 12/04/2014 Appointment: [phone] Follow up 12/04/2014 Patient Education: Patient [...] Plan: CT ABD & PELV 1/> REGNS LOINC : 18983-8 Ordered 09/24/2014 Visit Plan: Hypertension - well [...] THAT HE SHOULD NOT BE DRIVING TO [place] 07/26/2014 Appointment: Sick 07/26/2014 Appointment: Sick 07/26/2014 [...] medication list. 07/10/2014 Appointment: Ale Carlos WPtel: [address] [place], [place] [id number] Follow up 07/10/2014 Patient Education: Patient Medication Summary Completed 07/10/2014 Patient Education: Hypertension Completed 07/10/2014 Appointment: Ale Carlos WPtel: [facility] [place] Follow up 06/20/2014 Appointment: Ale Carlos WPtel: [address] [place] [id number] [place] Follow up 06/10/2014 Visit Plan: Anxiety [...] in blood pressure readings at home. Urinary mkuohczwv-PUC-gjapee flomax to bedtime Dizziness-stop hydrocodone and ativan [...] 3 WEEKS 05/29/2014 Appointment: [phone] S[facility] 05/29/2014 Patient Education: Patient Medication Summary Completed 05/29/2014 Patient Education: Hypertension Completed 05/29/2014 Appointment: Ale Carols WPtel[facility] [facility] 05/23/2014 Patient Education: Patient Medication Summary Completed 05/23/2014 Visit Plan: Pneumonia - Pt has been diagnosed with pneumonia by physical exam. A chest xray has been ordered as have antibiotics. The pt is aware of the diagnosis and the need for acute treatment of this illness. Enaamwync-zhxyo-olbyvoh flonase nasal spray Hyponatremia-increase gatorade as directed 05/20/2014 Visit Plan: Pneumonia - Pt has been diagnosed with pneumonia by physical exam. A chest xray has been ordered as have antibiotics. The pt is aware of the diagnosis and the need for acute treatment of this illness. Wbpxnolsl-cgwzo-ksygipn flonase nasal spray Hyponatremia-increase gatorade as directed ADDENDUM: RECOMMEND PATIENT START ON ALBUTEROL NEBULIZER TREATMENTS EVERY 4 HOURS NEEDED FOR SHORTNESS OF BREATH/WHEEZING. DX SECONDARY PNEUMONIA FROM INFLUENZA, COUGH 05/20/2014 Patient Education: Patient Medication Summary Completed 05/20/2014 Appointment: Ale Carlos WPtel: [phone] [facility] Injection 03/26/2014 Patient Education: Patient Medication Summary [...] Merlos. 03/25/2014 Appointment: Ale Carlos WPtel: [phone] [place] [phone] Follow up 03/25/2014 Patient Education: Patient Medication Summary Completed 03/25/2014 Patient Education: Hypertension Completed 03/25/2014 Visit Plan: Drlks-norhuogxx-wkzesje laryngeal reflux-RX for protonix (patient is on [...] home. 12/24/2013 Appointment: Ale Carlos WPtel: [phone] [facility] Follow up 12/24/2013 Patient Education: Patient [...] portion size. 11/20/2013 Appointment: Ale Carlos WPtel: [facility]5 [facility] [place] Follow up 11/20/2013 Patient Education: Patient Medication Summary Completed 11/20/2013 Appointment: Ale Carlos WPtel: [facility]3 [facility] Follow up 11/06/2013 Visit Plan: Weight loss-increase portions-add snacks in the morning and afternoon-follow up in 3 weeks for weight check Low sodium- check labs-restart gatorade Vjzgmjq-lbbgoq-omjto labs and UA 10/30/2013 Patient Education: Patient Medication Summary Completed 10/30/2013 Appointment: Ale Carlos WPtel: [facility]6 [facility] Follow up 10/16/2013 Visit Plan: Sinusitis [...] Dr. Merlos. 06/18/2013 Appointment: [phone] Follow up 06/18/2013 Patient Education: Patient Medication [...] acute concerns. 04/04/2013 Appointment: [phone] Follow up 04/04/2013 Patient Education: Patient Medication [...] with report. 02/19/2013 Appointment: [phone] Follow up 02/19/2013 Patient Education: Patient Medication [...] anxiety and memory loss. 10/16/2012 Appointment: Ale [facility]ostel[phone] Follow up 10/16/2012 Patient Education: Patient Medication [...] return. 06/19/2012 Appointment: Ale [phone] Follow up 06/19/2012 Patient Education: Patient [...] bentyl. 03/20/2012 Appointment: [phone] Follow up 03/20/2012 Patient Education: Patient Medication Summary Completed 03/20/2012 Patient Education: High Blood Pressure: Essential Hypertension Completed 2011 Appointment: [phone] Follow up 02/22/2012 Visit Plan: Hypertension [...] needed. 01/24/2012 Appointment: Ale [phone] Follow up 01/24/2012 Patient Education: Patient [...] have the biopsy until okayed by his office clerk assistant.. I anticipate it will be at least 4-6 months before he can be off of the plavix and aspirin for additonal procedures unless it is of extreme urgency. 12/20/2011 Appointment: Ale Carlos WPtel: [address] [place], [place] [phone] Follow up 12/20/2011 Patient Education: Patient Medication Summary Completed 12/20/2011 Patient Education: High Blood Pressure: Essential Hypertension Completed 2011 Appointment: Ale Carlos WPtel: [address] [place], [place] [phone] [place] Other 12/13/2011 Visit Plan: Pain in groin post heart cath with increased discomfort and increased size - will order an ultrasound for today. 12/09/2011 Appointment: Ale Carlos WPtel: [address] [place], [place] [phone] Other 12/09/2011 Patient Education: Patient Medication Summary [...] either medication. 08/25/2011 Appointment: Ale Carlos WPtel: [address] [place], [place] [phone] [place] Other 08/25/2011 Patient Education: Patient Medication [...] low doses. 06/23/2011 Appointment: Ale Carlos WPtel: [address] [place] [phone] Other 06/23/2011 Patient Education: Patient Medication Summary Completed 06/23/2011 Patient Education: High Blood Pressure: Essential Hypertension Completed 2011 Appointment: Ale Carlos WPtel: [address] [place] [place] [phone] Other 04/26/2011 Visit Plan: Hypertension - well [...] seeds, etc. 04/19/2011 Appointment: Ale Carlos WPtel: [address] [place], [place] [phone] Other 04/19/2011 Patient Education: Patient Medication Summary Completed 04/19/2011 Patient Education: High Blood Pressure: Essential Hypertension Completed 2010 Patient Education: Diverticulosis Diet Completed 04/19/2011 Appointment: Nelly Keen WPtel: [address] [place], [place] [phone] Other 03/23/2011 Patient Education: Patient Medication Summary Completed 03/23/2011 Patient Education: High Blood Pressure: Essential Hypertension Completed 2010 Visit Plan: Record blood pressure and heart rate at home and drop the readings by the office in two weeks. No change in medications today. Laceration - removed suture today - pt to call if any complications arise. 03/08/2011 Appointment: Ale Carlos WPtel: [facility] Other 03/08/2011 Patient Education: Patient Medication [...] a day. 03/01/2011 Appointment: Ale [facility]Ptel[phone] Other 03/01/2011 Patient Education: Patient Medication Summary Completed 03/01/2011 Patient Education: High Blood Pressure: Essential Hypertension Completed 2010 Appointment: Nelly Keen WPtel: [phone] [place] Injection 02/25/2011 Patient Education: Patient Medication Summary Completed 02/25/2011 Appointment: Ale Carlos [facility]Ptel[phone] Injection 02/16/2011 Patient Education: Patient Medication Summary Completed 02/16/2011 Appointment: Ale Carlos WPtel: [facility] Injection 02/09/2011 Patient Education: Patient Medication Summary Completed 02/09/2011 Appointment: Ale Carlos WPtel: [address] [place], [place] [phone] Follow up 02/02/2011 Visit Plan: Hydrocele and [...] with his son - Kenji Dash in [place]. Upon our conversation npvk-qho-wqmdt, Kenji vocalized concerns for his Dad's memory. He stated that he has noticed his father not being as quick in his cognitive functioning, he has noticed some concerns with driving as well. He states that he will discuss these concerns with his parents and other siblings. 02/01/2011 Appointment: Ale Carlos WPtel: [address] [place] [phone] Other 02/01/2011 Patient Education: Patient Medication Summary [...] as needed. 01/27/2011 Appointment: Ale Carlos WPtel: [address] [place], [place] [phone] New Patient 01/27/2011 Patient Education: Patient Medication Summary Completed 01/27/2011 Visit Plan: Bruising/hematoma left arm-discussed natural and expected course of this diagnosis and to alert me if symptoms do not follow expected course or if any worse, Continue with ice/heat as needed for discomfort. Call for any concerns. 01/26/2011 Appointment: Nelly Keen WPtel: [address] [place], [place] [phone] [address] Other 01/26/2011 Patient Education: Patient Medication Summary [...] HOSPITAL IN THE EVENING OF 01/15/11 01/15/2011 Visit Plan: Nocturia-defer treatment to Dr. Quintero. Continue with proscar and flomax. Return to follow up with Dr. Quintero on Tuesday as scheduled. Call if unable to void, fever, other concerns, etc. Abdominal bloating, gas-recommend lactobacillus 1 po twice daily while on antibiotics. Diarrhea-resolved per patient report. Finish antibiotics for full course. 01/15/2011 Appointment: Nelly Keen WPtel: [address] [place], [place] [phone] [place] [address] Other 01/15/2011 Patient Education: Patient Medication Summary [...] free diet. 01/06/2011 Appointment: Ale Carlos WPtel: [address] [place], [place] [phone] New Patient 01/06/2011 Patient Education: Patient Medication Summary Completed 01/06/2011 Instructions Comment . Hypertension - well controlled at home [...] be evaluated and call pt with report. I sent a prescription of generic zyrtec to [facility] - if it is expensive get the [...] change in blood pressure readings at home. Increase your lorazepam to 1/2 tablet 3 [...] take lorazepam every 8 hours as needed. on the Requip - decrease the dose [...] and namenda. labs to be done from [facility] INCREASE GATORADE TO THREE TIMES PER DAY X 2 DAYS THEN TWICE DAILY stop doxycycline START CEFDINIR AND ZITHROMAX . Pneumonia - Pt has been diagnosed with pneumonia by physical exam. A chest xray has been ordered as have antibiotics. The pt is aware of the diagnosis and the need for acute treatment of this illness. Rwroblbdf-yxatu-mtkevpf flonase nasal spray Hyponatremia-increase gatorade as directed INCREASE GATORADE TO TWICE DAILY . Abdominal pain-patient reports worsening symptoms-schedule CT abdomen/pelvis to evaluate for acute abnormality Low sodium-increase gatorade to twice HTN-well controlled-no change in treatment INCREASE GATORADE TO TWICE DAILY . Abdominal pain-patient reports worsening symptoms-schedule CT abdomen/pelvis to evaluate for acute abnormality Low sodium-increase gatorade to twice HTN-well controlled-no change in treatment . Pneumonia - Pt has been diagnosed with pneumonia by physical exam. A chest xray has been ordered as have antibiotics. The pt is aware of the diagnosis and the need for acute treatment of this illness. Xukifoiqf-nlhdd-yjgrhvt flonase nasal spray Hyponatremia-increase gatorade as directed [...] in the nasal steroid allergy spray. . Arxlu-sxqsaalus-xguknla laryngeal reflux-RX for protonix (patient is on [...] need increased dose of either medication. . Hypertension - well controlled - [...] thyroid and cbc prevnar 13 injection today stop the cefuroxime - start on azithromycin [...] swish and swallow - you have thrush. CHECK LABS-CBC, CMP, UA WITH C&S IF INDICATED . Weight loss-increase portions-add snacks in the morning and afternoon-follow up in 3 weeks for weight check Low sodium-check labs-restart gatorade Irmkulj-qrhiud-zlber labs and UA INCREASE YOUR MELOXICAM (MOBIC) TO 1/2 PILL TWICE DAILY X 5 DAYS CALL IF YOUR ELBOWS SWELLS AGAIN OR YOU DEVELOP PAIN OR OTHER CONCERNS . Bursitis-right elbow-drained today in the office-increase anti inflammatories for the next 5 days as directed-call if symptoms do not resolve, swelling returns or new symptoms develop-patient verbalized understanding of plan. . Bronchitis - acute but improving - case of bronchitis - Pt has been given antibiotics, breathing treatments as appropriate, and pt has been instructed to call if symptoms are not improved, or if symptoms acutely worsen. . Pain in groin post heart cath with increased discomfort and increased size - will order an ultrasound for today. . Nocturia-defer treatment to Dr. Quintero. Continue with proscar and flomax. Return to follow up with Dr. Quintero on Tuesday as scheduled. Call if unable to void, fever, other concerns, etc. Abdominal bloating, gas-recommend lactobacillus 1 po twice daily while on antibiotics. Diarrhea-resolved per patient report. Finish antibiotics for full course. PT ADMITTED TO HOSPITAL IN THE EVENING OF 01/15/11 Dr. Carlos talked to Dr. Merlos today [...] bottom number flu shot . Hypertension - well controlled - continue [...] Pt to have IV fluids at hospital . Hypertension - uncontrolled - the patient's [...] up to two times a day. . Chronic Depression and anxiety-improved over the past several weeks- the pt has symptoms of chronic anxiety and depression that have been fairly well controlled since the last office visit. The pt has expected periods of exacerbation with abatement of the symptoms with change in situational exposure. No change in current medications. INSTRUCTED PATIENT THAT HE SHOULD NOT BE DRIVING TO [place] . Hypertension - well controlled - continue [...] with treatment per Dr. Merlos. . Hypertension and Coronary artery disease- recommended [...] have the biopsy until okayed by his office clerk assistant.. I anticipate it will be at least 4-6 months before he can be off of the plavix and aspirin for additonal procedures unless it is of extreme urgency. . Joint effusion - recommended drainage and [...] needed for discomfort. Call for any concerns. Blood pressure check today in the office-improving. call the office in 2 weeks - [...] call if symptoms are not improving. . Abdominal symptoms with elevated liver enzymes- [...] AND BRING BY THE OFFICE ON Tuesday Dementia with anxiety - INCREASE ARICEPT (DONEPEZIL) TO 5MG TAKEN TWICE A DAY. Fatigue/Malaise - HOLD THE SIMVASTATIN X 3 WEEKS . Hypertension - well controlled - continue [...] x 2 weeks, then use as needed. Appointment in [address] Carlos. [...] with his son - Kenji Dash in [place]. Upon our conversation icrp-iip-yfcql, Kenji vocalized concerns for his Dad's memory. [...] in blood pressure readings at home. Pt is to try 1/2 pill of [...] to call if any complications arise. . Hypertension - well controlled - continue [...] symptoms are not improving. Anxiety -has improved. ESCITALOPRAM (LEXAPRO) 5MG DAILY AT BEDTIME-THIS IS [...] in blood pressure readings at home. Urinary nzwmvqcxe-YHQ-tgiqqb flomax to bedtime Dizziness-stop hydrocodone and ativan [...] I have discussed this with Dr. Merlos. decrease CELEXA (generic name is citalopram) - [...] change in blood pressure readings at home. INCREASE YOUR MELOXICAM (MOBIC) TO 1/2 PILL TWICE DAILY X 5 DAYS CALL IF YOUR ELBOWS SWELLS AGAIN OR YOU DEVELOP PAIN OR OTHER CONCERNS . Bursitis-right elbow-drained today in the office-increase anti inflammatories for the next 5 days as directed-call if symptoms do not resolve, swelling returns or new symptoms develop-patient verbalized understanding of plan. . Hypertension - well controlled - continue [...]
--- OUTSIDE RECORDS SUMMARY | 2017-06-25 04:43 | XMS REPORT | CCD ---
Author Author [facility] Organization [facility] Address [address] [place] [address] Phone Care Team Providers [facility] Name Role Phone [facility] PP Unavailable CCM Unavailable Summary Purpose Interface Exchange Insurance Providers Payer name Policy type / Coverage type Covered green party ID Effective Begin Date Effective End Date WPS Medicare Part B Medicare Part B [id number] Unknown Unknown [facility] Medicare Part B [id number] Unknown Unknown Family history Runs in the family Diagnosis Age At Onset No Family Disease Entered N/A Mother Diagnosis Age At Onset No Family Disease Entered N/A Father Diagnosis Age At Onset Heart disease Unknown Social History Social History Element Codes Description Effective Dates Number of children Unknown 3 3 ([place], [place], [place]) 05/06/2015 Living arrangements Unknown House 01/11/2011 Number of adults in household Unknown 2 01/11/2011 Education level Unknown Post-Graduate PHD in chemistry 01/11/2011 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 Unknown Has never used illegal drugs 01/06/2011 Allergies, Adverse Reactions, Alerts Substance Reaction Codes Entered Date Inactivated Date Status Lisinopril cough Unknown 03/25/2014 No Inactive Date Active Past Medical History Illness Codes Condition Status Onset Date Resolved Date Cervicalgia ICD-9: 723.1 ICD-10: M54.2 Active 06/21/2017 Unknown Essential (primary) hypertension ICD-9: 401.1 ICD-10: I10 Active 03/21/2017 Unknown Gas pain ICD-9: 787.3 ICD-10: R14.1 Active 06/21/2017 Unknown Generalized anxiety disorder ICD-9: 300.02 ICD-10: F41.1 Active 05/29/2014 Unknown Pain in thoracic spine ICD-9: 724.1 ICD-10: M54.6 Active 06/21/2017 Unknown Unsteadiness on feet ICD-9: 781.2 ICD-10: R26.81 Active 06/21/2017 Unknown Other allergic rhinitis ICD-9: 477.8 ICD-10: [...] ICD-9: V03.9 ICD-10: Z23 Active 05/05/2015 Unknown Mixed hyperlipidemia ICD-9: 272.4 ICD-10: E78.2 [...] Problems Condition Codes Effective Dates Condition Status Cervicalgia ICD-9: 723.1 ICD-10: M54.2 06/21/2017 Active Essential (primary) hypertension ICD-9: 401.1 ICD-10: I10 03/21/2017 Active Gas pain ICD-9: 787.3 ICD-10: R14.1 06/21/2017 Active Generalized anxiety disorder ICD-9: 300.02 ICD-10: F41.1 05/29/2014 Active Pain in thoracic spine ICD-9: 724.1 ICD-10: M54.6 06/21/2017 Active Unsteadiness on feet ICD-9: 781.2 ICD-10: R26.81 06/21/2017 Active Other allergic rhinitis ICD-9: 477.8 ICD-10: [...] immunization ICD-9: V03.9 ICD-10: Z23 05/05/2015 Active Mixed hyperlipidemia ICD-9: 272.4 ICD-10: E78.2 [...] Fill Instructions clopidogrel 75 mg tablet RxNorm: 447543 TAKE 1 TABLET BY MOUTH EVERY DAY 06/20/2017 12/16/2017 Active cetirizine 10 mg tablet RxNorm: 1535942 TABLET(S) 1 TABLET(S) PO DAILY TO TAKE INSTEAD OF THE CLARITIN 06/06/20172017 Active lisinopril 20 mg tablet RxNorm: 367771 TAKE 1 TABLET DAILY 11/25/2017 Active Mobic 15 mg tablet RxNorm: 593808 1/2 TABLET(S) DAILY 201609/16/2017 Active donepezil 10 mg tablet RxNorm: 549140 1 Tablet(s) PO daily TAKE 1 TABLET BY MOUTH ONCE DAILY 02/28/2017 11/24/2017 Active Patient requests 90 days supply Requip 0.25 mg tablet RxNorm: 514630 1 TABLET(S) PO BID 201606/22/2017 Active Patient requests 90 days supply clopidogrel 75 mg tablet RxNorm: 403732 TAKE 1 TABLET BY MOUTH EVERY DAY 12/23/2016 06/19/2017 Inactive lisinopril 20 mg tablet RxNorm: 641922 TAKE 1 TABLET DAILY 05/24/2017 Inactive Kenalog 40 mg/mL suspension for injection RxNorm: 5853716 Milliliter(s) Inj 11/25/2016 11/25/2016 Inactive cefdinir 300 mg capsule RxNorm: 155025 1 Capsule(s) PO BID 11/27/2016 Inactive cefdinir 300 mg capsule RxNorm: 601331 1 Capsule(s) PO BID 11/22/2016 Inactive nystatin 100,000 unit/mL oral suspension RxNorm: 610527 5 Milliliter(s) PO QID 11/18/2016 11/27/2016 Inactive azithromycin 250 mg tablet RxNorm: 937562 1 Tablet(s) PO UD 2 pills on day #1 then one pill daily x 4 more days 11/18/2016 11/22/2016 Inactive Mobic 15 mg tablet RxNorm: 672558 1/2 TABLET(S) DAILY 201603/20/2017 Inactive citalopram 10 mg tablet RxNorm: 849182 TAKE 1 TABLET BY MOUTH EVERY DAY 10/07/2016 03/05/2017 Inactive Patient requests 90 days supply mirtazapine 15 mg tablet RxNorm: 233521 TAKE ONE TABLET BY MOUTH EVERY DAY 10/06/2016 09/30/2017 Active mirtazapine 15 mg tablet RxNorm: 770559 TAKE ONE TABLET BY MOUTH EVERY DAY 10/05/2016 10/05/2016 Inactive Patient requests 90 days supply amlodipine 10 mg tablet RxNorm: 879144 TAKE 1 TABLET BY MOUTH EVERY DAY 09/14/2016 01/24/2017 Inactive clopidogrel 75 mg tablet RxNorm: 827978 TAKE 1 TABLET BY MOUTH EVERY DAY 06/28/2016 12/22/2016 Inactive lisinopril 20 mg tablet RxNorm: 432165 TAKE 1 TABLET DAILY 11/25/2016 Inactive donepezil 10 mg tablet RxNorm: 366924 TAKE 1 TABLET BY MOUTH ONCE DAILY 05/11/2016 11/06/2016 Inactive donepezil 10 mg tablet RxNorm: 479519 TAKE 1 TABLET BY MOUTH ONCE DAILY 04/26/2016 02/28/2017 Inactive Mobic 15 mg tablet RxNorm: 575064 1/2 Tablet(s) daily 201510/15/2016 Inactive citalopram 10 mg tablet RxNorm: 345110 TAKE 1 TABLET BY MOUTH EVERY DAY 04/06/2016 04/25/2016 Inactive cetirizine 10 mg tablet RxNorm: 0413939 Tablet(s) 1 TABLET(S) PO DAILY TO TAKE INSTEAD OF THE CLARITIN 03/30/20162016 Inactive amlodipine 10 mg tablet RxNorm: 188298 TAKE 1 TABLET BY MOUTH EVERY DAY 03/08/2016 01/24/2017 Inactive amlodipine 10 mg tablet RxNorm: 350175 1 Tablet(s) PO daily TAKE 1 TABLET BY MOUTH ONCE DAILY 03/03/2016 03/07/2016 Inactive Requip 0.25 mg tablet RxNorm: 229832 1 Tablet(s) PO BID 201509/13/2016 Inactive Mobic 15 mg tablet RxNorm: 222533 1 Tablet(s) daily not refilled on 02/23/2016 04/18/2016 Inactive cetirizine 10 mg tablet RxNorm: 6580239 1 TABLET(S) PO DAILY TO TAKE INSTEAD OF THE CLARITIN 02/19/2016 03/19/2016 Inactive lisinopril 20 mg tablet RxNorm: 741492 TAKE 1 TABLET DAILY 04/201605/17/2016 Inactive Namenda 10 mg tablet RxNorm: 147097 Tablet(s) TAKE 1 TABLET BY MOUTH TWICE DAILY. 02/17/2016 No Stop Date Active lisinopril 20 mg tablet RxNorm: 957640 TAKE 1 TABLET DAILY 01/24/2017 Inactive cetirizine 10 mg tablet RxNorm: 9072085 1 Tablet(s) PO daily to take instead of the claritin 01/21/2016 02/18/2016 Inactive amlodipine 10 mg tablet RxNorm: 185032 1 Tablet(s) PO daily TAKE 1 TABLET BY MOUTH ONCE DAILY 12/02/2015 03/02/2016 Inactive clopidogrel 75 mg tablet RxNorm: 324350 TAKE 1 TABLET BY MOUTH EVERY DAY 11/25/2015 05/22/2016 Inactive Mobic 15 mg tablet RxNorm: 525152 TAKE(1/2) TABLET DAILY. 03/201602/22/2016 Inactive lisinopril 20 mg tablet RxNorm: 442003 TAKE 1 TABLET DAILY 03/201601/15/2016 Inactive Mobic 15 mg tablet RxNorm: 631636 1/2 Tablet(s) PO daily TAKE (1/2) TABLET DAILY. 11/12/2015 11/16/2015 Inactive citalopram 10 mg tablet RxNorm: 919661 TAKE 1 TABLET BY MOUTH EVERY DAY 10/27/2015 04/05/2016 Inactive Requip 0.25 mg tablet RxNorm: 722705 1 Tablet(s) PO BID 201502/11/2016 Inactive Requip 0.25 mg tablet RxNorm: 171518 1 Tablet(s) PO BID 201510/14/2015 Inactive mirtazapine 15 mg tablet RxNorm: 505489 1 Tablet(s) PO daily 10/01/2016 Inactive donepezil 10 mg tablet RxNorm: 856208 TAKE 1 TABLET DAILY 08/3104/25/2016 Inactive amlodipine 10 mg tablet RxNorm: 775426 1 Tablet(s) PO daily TAKE 1 TABLET BY MOUTH ONCE DAILY 08/18/2015 12/01/2015 Inactive clopidogrel 75 mg tablet RxNorm: 230064 1 Tablet(s) PO daily TAKE 1 TABLET DAILY 05/20/2015 11/24/2015 Inactive Mobic 15 mg tablet RxNorm: 470716 Tablet(s) TAKE (1/2) TABLET DAILY. 04/23/2015 10/19/2015 Inactive lisinopril 20 mg tablet RxNorm: 609325 TAKE 1 TABLET DAILY 11/16/2015 Inactive Mobic 15 mg tablet RxNorm: 545289 TAKE (1/2) TABLET DAILY. 04/22/2015 Inactive sulfamethoxazole 400 mg-trimethoprim 80 mg tablet RxNorm: 384030 1/2 Tablet(s) PO daily 03/11/2015 04/09/2015 Inactive Vesicare 5 mg tablet RxNorm: 852742 1 Tablet(s) PO 03/11/2015 05/09/2015 Inactive Protonix 40 mg tablet,delayed release RxNorm: 629264 1 Tablet(s) PO BID 03/05/2015 09/30/2015 Inactive ok to change from [address] Carlos clopidogrel 75 mg tablet RxNorm: 346657 1 Tablet(s) PO daily TAKE 1 TABLET DAILY 02/20/2015 05/19/2015 Inactive Namenda 10 mg tablet RxNorm: 332671 Tablet(s) TAKE 1 TABLET BY MOUTH TWICE DAILY. 01/22/2015 02/16/2016 Inactive amlodipine 10 mg tablet RxNorm: 351210 TAKE 1 TABLET BY MOUTH ONCE DAILY 01/14/2015 08/17/2015 Inactive donepezil 10 mg tablet RxNorm: 417935 TAKE 1 TABLET DAILY 01/0608/31/2015 Inactive Levsin 0.125 mg tablet RxNorm: 8840528 1 Tablet(s) PO QID as needed FOR ABD PAIN 11/05/2014 12/03/2014 Inactive Mobic 15 mg tablet RxNorm: 024313 1/2 Tablet(s) daily TAKE (1/2) TABLET DAILY. 10/01/2014 04/21/2015 Inactive ciprofloxacin 500 mg tablet RxNorm: 831322 1 Tablet(s) PO BID 09/27/2014 10/01/2014 Inactive Flagyl 500 mg tablet RxNorm: 576305 1 Tablet(s) PO TID 201410/03/2014 Inactive take probiotic BID donepezil 10 mg tablet RxNorm: 026296 1/2 Tablet(s) PO BID 01/05/2015 Inactive lisinopril 20 mg tablet RxNorm: 249967 TAKE 1 TABLET DAILY 04/21/2015 Inactive amlodipine 10 mg tablet RxNorm: 735255 1 Tablet(s) PO daily 12/30/2014 Inactive mirtazapine 15 mg tablet RxNorm: 254968 1 Tablet(s) PO daily 09/07/2015 Inactive donepezil 10 mg tablet RxNorm: 858492 1 Tablet(s) PO daily 09/23/2014 Inactive citalopram 10 mg tablet RxNorm: 619194 1 Tablet(s) PO daily 03/25/2015 Inactive citalopram 10 mg tablet RxNorm: 051166 1 Tablet(s) PO daily 05/201408/27/2014 Inactive citalopram 10 mg tablet RxNorm: 239002 1 Tablet(s) PO daily 05/201408/06/2014 Inactive Flagyl 500 mg tablet RxNorm: 863458 1 Tablet(s) PO TID 201408/01/2014 Inactive take probiotic BID Flagyl 500 mg tablet RxNorm: 232269 1 Tablet(s) PO TID 201408/08/2014 Inactive take probiotic BID tamsulosin ER 0.4 mg capsule,extended release 24 hr RxNorm: 847906 1 Capsule(s) PO QHS 06/06/2014 03/10/2015 Inactive TAKE AT BEDTIME escitalopram 5 mg tablet RxNorm: 335600 1 Tablet(s) PO QPM 08/06/2014 Inactive doxycycline hyclate 100 mg tablet RxNorm: 779559 1 Tablet(s) PO BID 05/31/2014 05/30/2014 Inactive doxycycline hyclate 100 mg tablet RxNorm: 341100 1 Tablet(s) PO BID 05/31/2014 06/06/2014 Inactive please deliver if not picked by 3pm Aricept 5 mg tablet RxNorm: 675228 1 Tablet(s) PO BID 201408/27/2014 Inactive losartan 50 mg tablet RxNorm: 626976 1/2 Tablet(s) PO daily 12/28/2015 Inactive clopidogrel 75 mg tablet RxNorm: 739912 1 Tablet(s) PO daily 05/26/2014 Inactive Mobic 15 mg tablet RxNorm: 824058 TAKE (1/2) TABLET DAILY. 09/30/2014 Inactive clopidogrel 75 mg tablet RxNorm: 561865 TAKE 1 TABLET DAILY 02/19/2015 Inactive Mobic 15 mg tablet RxNorm: 433817 1/2 Tablet(s) PO daily TAKE (1/2) TABLET DAILY. 05/27/2014 05/26/2014 Inactive prednisone 20 mg tablet RxNorm: 546047 1 Tablet(s) PO BID 05/2105/25/2014 Inactive albuterol sulfate 2.5 mg/0.5 mL solution for nebulization RxNorm: 275540 1 inhale INH Q4H as needed 05/21/2014 09/01/2015 Inactive prednisone 20 mg tablet RxNorm: 658785 1 Tablet(s) PO BID 05/2105/20/2014 Inactive cefdinir 300 mg capsule RxNorm: 766296 1 Capsule(s) PO BID 04/201505/26/2014 Inactive Zithromax Z-Dequan 250 mg tablet RxNorm: 832672 1 Tablet(s) PO UD 05/20/2014 05/24/2014 Inactive zpack lorazepam 0.5 mg tablet RxNorm: 543756 1/2 to 1 Tablet(s) PO Q8 PRN as needed 04/30/2014 06/05/2014 Inactive Namenda 10 mg tablet RxNorm: 554958 TAKE 1 TABLET BY MOUTH TWICE DAILY. 04/15/2014 01/21/2015 Inactive Namenda 10 mg tablet RxNorm: 901180 1 Tablet(s) PO BID 201304/14/2014 Inactive losartan 50 mg tablet RxNorm: 806714 1 Tablet(s) PO daily 201305/28/2014 Inactive Protonix 40 mg tablet,delayed release RxNorm: 000666 1 Tablet(s) PO QPM 03/21/2014 06/18/2014 Inactive ok to change from [address] Carlos fluticasone 50 mcg/actuation nasal spray,suspension RxNorm: 122304 1 [place] NASAL BID 03/04/2014 09/29/2014 Inactive Protonix 20 mg tablet,delayed release RxNorm: 525133 1 Tablet(s) PO QPM 02/08/2014 03/20/2014 Inactive fluticasone 50 mcg/actuation nasal spray,suspension RxNorm: 415541 1 [place] NASAL BID 01/30/2014 03/03/2014 Inactive fluticasone 50 mcg/actuation nasal spray,suspension RxNorm: 120329 1 [place] NASAL BID 12/24/2013 01/29/2014 Inactive fluticasone 50 mcg/actuation nasal spray,suspension RxNorm: 289828 1 [place] NASAL BID 11/20/2013 12/23/2013 Inactive doxycycline hyclate 100 mg capsule RxNorm: 3324911 1 Capsule(s) PO BID 10/08/2013 10/17/2013 Inactive doxycycline hyclate 100 mg capsule RxNorm: 3750751 capsule oral 10/08/2013 10/29/2013 Inactive fluticasone 50 mcg/actuation nasal spray,suspension RxNorm: 660142 spray, suspension nasl 10/08/2013 11/19/2013 Inactive fluticasone 50 mcg/actuation nasal spray,suspension RxNorm: 366716 1 [place] NASAL BID Nasal spray- use twice daily, one spray per nostril twice daily, after 30 minutes, rinse out nose with saline spray. 10/08/2013 10/29/2013 Inactive mirtazapine 7.5 mg tablet RxNorm: 868977 1/2 Tablet(s) PO daily 08/30/2013 08/27/2014 Inactive lorazepam 0.5 mg tablet RxNorm: 148140 1/2 Tablet(s) PO Q8 PRN 08/21/2013 04/29/2014 Inactive Aricept 5 mg tablet RxNorm: 889360 Tablet(s) PO TAKE 1 TABLET DAILY 08/21/2013 05/28/2014 Inactive Plavix 75 mg tablet RxNorm: 337797 Tablet(s) PO TAKE 1 TABLET DAILY 05/24/2013 12/04/2014 Inactive clopidogrel 75 mg tablet RxNorm: 817483 tablet oral 05/24/2013 05/26/2014 Inactive Plavix 75 mg tablet RxNorm: 637096 1 Tablet(s) PO daily 201305/23/2013 Inactive meloxicam 15 mg tablet RxNorm: 543494 tablet oral 04/26/2013 03/25/2014 Inactive Mobic 15 mg tablet RxNorm: 506943 Tablet(s) PO TAKE (1/2) TABLET DAILY. 04/26/2013 05/26/2014 Inactive Mobic 15 mg tablet RxNorm: 157170 1/2 Tablet(s) PO daily 04/25/2013 Inactive lisinopril 20 mg tablet RxNorm: 930608 1 Tablet(s) PO 201203/24/2014 Inactive finasteride 5 mg tablet RxNorm: 141487 tablet oral 03/22/2013 09/01/2015 Inactive lisinopril 10 mg tablet RxNorm: 868929 1 Tablet(s) PO daily 01/201304/03/2013 Inactive donepezil 5 mg tablet RxNorm: 806648 tablet oral 02/07/2013 12/24/2013 Inactive Influenza Virus Vaccine 0.5 mL RxNorm: IM 02/06/2013 02/06/2013 Inactive Aricept 5 mg tablet RxNorm: 747306 1 Tablet(s) PO daily 201208/04/2013 Inactive tamsulosin ER 0.4 mg capsule,extended release 24 hr RxNorm: 653316 capsule, extended release 24hr oral 12/21/2012 Inactive Plavix 75 mg tablet RxNorm: 627772 1 Tablet(s) PO daily 201205/03/2013 Inactive lorazepam 0.5 mg tablet RxNorm: 364371 1/2 Tablet(s) PO Q8 PRN 11/14/2012 08/20/2013 Inactive lisinopril 10 mg tablet RxNorm: 642251 1 Tablet(s) PO daily 06/201202/03/2013 Inactive Aricept 5 mg tablet RxNorm: 121787 1 Tablet(s) PO daily 201202/03/2013 Inactive Plavix 75 mg tablet RxNorm: 400137 1 Tablet(s) PO daily 201211/30/2012 Inactive Mobic 15 mg tablet RxNorm: 838266 1/2 Tablet(s) PO daily 04/201204/13/2013 Inactive Namenda 10 mg tablet RxNorm: 184719 1 Tablet(s) PO BID 201104/11/2014 Inactive lorazepam 0.5 mg tablet RxNorm: 254623 1/2 Tablet(s) PO Q8 PRN 02/02/2012 11/13/2012 Inactive lisinopril 10 mg tablet RxNorm: 544797 1 Tablet(s) PO daily 07/21/2012 Inactive lisinopril 10 mg tablet RxNorm: 038322 1/2 Tablet(s) PO daily 12/20/2011 01/23/2012 Inactive Aricept 5 mg tablet RxNorm: 803929 1 Tablet(s) PO daily 201108/06/2012 Inactive Mobic 15 mg tablet RxNorm: 658617 1 Tablet(s) PO daily 201103/19/2012 Inactive Bentyl 10 mg Cap RxNorm: 850438 1 Capsule(s) PO daily one pill daily and every 6 hours if needed for bowel spasms. 06/23/2011 03/20/2012 Inactive amlodipine 5 mg Tab RxNorm: 565622 2 Tablet(s) PO daily 201012/08/2011 Inactive ZOSTAVAX 19,400 unit Sub-Q Soln RxNorm: 3464712 SQ 02/25/2011 02/25/2011 Inactive Pneumovax 23 25 mcg/0.5 mL Injection RxNorm: 611177 Milliliter(s) Inj 02/16/2011 02/16/2011 Inactive Influenza Virus Vaccine 0.5 mL RxNorm: IM 02/09/2011 02/09/2011 Inactive Namenda 10 mg tablet RxNorm: 764737 1 Tablet(s) PO BID 201002/21/2012 Inactive dicyclomine 10 mg capsule RxNorm: 004911 capsule oral 201010/29/2013 Inactive Namenda 5 mg tablet RxNorm: 448506 tablet oral 01/20/2011 12/24/2013 Inactive dicyclomine 20 mg tablet RxNorm: 361354 tablet oral 01/15/2011 10/29/2013 Inactive Flagyl 500 mg Tab RxNorm: 904047 1 Tablet(s) PO TID 201001/06/2011 Inactive Cipro 500 mg Tab RxNorm: 462986 1 Tablet(s) PO BID 201006/23/2011 Inactive Cipro 500 mg Tab RxNorm: 150209 1 Tablet(s) PO BID 201001/06/2011 Inactive Flagyl 500 mg Tab RxNorm: 588738 1 Tablet(s) PO TID 201006/23/2011 Inactive metronidazole 500 mg tablet RxNorm: 705548 tablet oral 201012/24/2013 Inactive sulfamethoxazole 400 mg-trimethoprim 80 mg tablet RxNorm: 817508 tablet oral 12/24/2010 03/10/2015 Inactive mirtazapine 15 mg tablet RxNorm: 236676 tablet oral 11/14/2010 12/24/2013 Inactive lisinopril 10 mg tablet RxNorm: 136604 tablet oral 11/14/2010 12/24/2013 Inactive doxycycline hyclate 100 mg tablet RxNorm: 713954 tablet oral 12/24/2013 Inactive diphenoxylate-atropine 2.5 mg-0.025 mg tablet RxNorm: 7349440 tablet oral 11/03/2010 10/29/2013 Inactive ciprofloxacin 500 mg tablet RxNorm: 409886 tablet oral 201010/29/2013 Inactive aspirin 81 mg Cap, Delayed Release RxNorm: 393205 1 Capsule(s) PO daily No Start Date Active Vitamin D 1,000 unit Tab RxNorm: 888462 1 Tablet(s) PO daily No Start Date Active Senior Vitamin Tab RxNorm: 1 Tablet(s) PO daily No Start Date Active sulfamethoxazole 500 mg Tab RxNorm: 543072 1/2 Tablet(s) PO daily No Start Date 12/24/2013 Inactive Plavix 75 mg Tab RxNorm: 799417 1 Tablet(s) PO daily No Start Date 01/26/2011 Inactive hydrocodone 5 mg-acetaminophen 325 mg tablet RxNorm: 824400 1 Tablet(s) PO Q6 as needed No Start Date 06/05/2014 Inactive Proscar 5 mg Tab RxNorm: 155126 1 Tablet(s) PO daily No Start Date 09/01/2015 Inactive Plavix 75 mg tablet RxNorm: 486014 1 Tablet(s) PO daily No Start Date 07/03/2012 Inactive albuterol sulfate 2.5 mg/0.5 mL solution for nebulization RxNorm: 168728 1 inhale INH Q4H as needed No Start Date 2014 Inactive amlodipine 5 mg Tab RxNorm: 278266 1 Tablet(s) PO daily No Start Date 03/07/2011 Inactive Namenda 5 mg Tab RxNorm: 939241 1 Tablet(s) PO daily No Start Date 06/23/2011 Inactive Allergy Relief (cetirizine) oral RxNorm: 575142 oral No Start Date 12/19/2016 Inactive fluocinonide 0.05 % Ointment RxNorm: 662202 1 TOP BID PRN No Start Date 12/24/2013 Inactive amlodipine 5 mg tablet RxNorm: 011481 1 Tablet(s) PO daily No Start Date 09/01/2014 Inactive lisinopril Oral RxNorm : Oral No Start Date 12/08/2011 Inactive simvastatin 20 mg Tab RxNorm: 307571 1 Tablet(s) PO daily No Start Date 06/06/2014 Inactive Bentyl 20 mg Tab RxNorm: 708048 1 Tablet(s) PO Q6 PRN No Start Date 06/23/[address] Quintero Bentyl 10 mg Cap RxNorm: 114949 1 Capsule(s) PO BID No Start Date 06/22/2011 Inactive Plavix 75 mg Tab RxNorm: 327434 1 Tablet(s) PO every other day No Start Date 08/24/2011 Inactive lorazepam 0.5 mg tablet RxNorm: 380748 1/2 Tablet(s) PO Q8 PRN No Start Date 02/01/2012 Inactive lisinopril 10 mg tablet RxNorm: 419232 1 Tablet(s) PO daily No Start Date 12/19/2011 Inactive Flomax 0.4 mg 24 hr Cap RxNorm: 427325 1 Capsule(s) PO daily No Start Date 05/28/2014 Inactive Aricept 5 mg Tab RxNorm: 797580 1 Tablet(s) PO daily No Start Date 07/13/2011 Inactive Levsin 0.125 mg tablet RxNorm: 4583697 1 Tablet(s) PO QID as needed FOR ABD PAIN No Start Date 11/04/2014 Inactive mirtazapine 7.5 mg tablet RxNorm: 711034 1/2 Tablet(s) PO daily No Start Date 08/29/2013 Inactive Mobic 15 mg Tab RxNorm : 259024 1 Tablet(s) PO daily No Start Date 07/13/2011 Inactive Medication Administered Medication Codes Instructions Start Date Status Kenalog 40 mg/mL suspension for injection RxNorm: 6995362 Milliliter 11/25/2016 No longer Active Influenza Virus Vaccine 0.5 mL RxNorm: 02/06/2013 No longer Active ZOSTAVAX 19,400 unit Sub-Q Soln RxNorm: 2338419 02/25/2011 No longer Active Pneumovax 23 25 mcg/0.5 mL Injection RxNorm: 692131 Milliliter 02/16/2011 No longer Active Influenza Virus [...] 02/05/2009 completed Assessments Condition Codes Effective Dates Unsteadiness on feet ICD-10: R26.81 ICD-9: 781.2 06/21/2017 Gas pain ICD-10: R14.1 ICD-9: 787.3 06/21/2017 Essential (primary) hypertension ICD-10: I10 ICD-9: 401.1 06/21/2017 Pain in thoracic spine ICD-10: M54.6 ICD-9: 724.1 06/21/2017 Generalized anxiety disorder ICD-10: F41.1 ICD-9: 300.02 06/21/2017 Cervicalgia ICD-10: M54.2 ICD-9: 723.1 06/21/2017 Other allergic rhinitis ICD-10: J30.89 ICD-9: 477.8 [...] abdominal tenderness ICD-10: R10.817 ICD-9: 789.67 01/26/2016 Encounter for immunization ICD-10: Z23 ICD-9: V03.9 [...] Reason For Visit Effective Dates Notes hypertension 06/21/2017 hypertension 03/21/2017 earache 03/08/2017 cough 01/25/2017 cough [...] Source RIGHT ELBOW 02/18/2016 Body Fluid Crystals 798470 CRYSTALS, BODY FLUID 2015 Uric Acid Body Fluid 561851 URIC ACID- FLUID 4.3 mg/dL 2015 Metabolic [...] Ord15 CALCIUM 9.1 mg/dL 02/05/2016 Comp Metabolic Xtm630 NA 129 mEq/L 10/08/2015 Comp Metabolic Gbd180 K 4.7 mEq/L 10/08/2015 Comp Metabolic Jkt466 CL 98 mEq/L 10/08/2015 Comp Metabolic Obb959 CO2 28.0 mEq/L 10/08/2015 Comp Metabolic Rex282 ANION GAP 8 10/08/2015 Comp Metabolic Qrx480 GLUCOSE 84 mg/dL 10/08/2015 Comp Metabolic Pwr945 Creat 1.3 mg/dL 10/08/2015 Comp Metabolic Nfp047 eGFR 56 ml/min/1.73m2 10/08/2015 Comp Metabolic Gpi886 BUN 23 mg/dL 10/08/2015 Comp Metabolic Peq669 B/C Ratio 17.8 Ratio 10/08/2015 Comp Metabolic Utd287 CALCIUM 9.3 mg/dL 10/08/2015 Comp Metabolic Tpw829 ALK PHOS 68 U/L 10/08/2015 Comp Metabolic Ojp415 AST(SGOT) 24 U/L 10/08/2015 Comp Metabolic Yww788 ALT(SGPT) 15 U/L 10/08/2015 Comp Metabolic Qyl345 BILI T 0.5 mg/dL 10/08/2015 Comp Metabolic Dgm014 ALBUMIN 4.0 g/dL 10/08/2015 Comp Metabolic Avk116 TPRO 5.9 g/dL 10/08/2015 Comp Metabolic Zxf006 GLOB 1.9 g/dL 10/08/2015 Comp Metabolic Eiv126 A/G Ratio 2.1 Ratio 10/08/2015 Comp Metabolic Fny734 Osmo 262 mOsmo 10/08/2015 Lipid Ord30 CHOL [...] Ord30 C/HDL 2.3 Ratio 05/07/2015 Comp Metabolic Xgj133 NA 132 mEq/L 05/07/2015 Comp Metabolic Xbz238 K 4.4 mEq/L 05/07/2015 Comp Metabolic Ibr626 CL 97 mEq/L 05/07/2015 Comp Metabolic Zwq598 CO2 30.0 mEq/L 05/07/2015 Comp Metabolic Zgc508 ANION GAP 9 05/07/2015 Comp Metabolic Sex589 GLUCOSE 78 mg/dL 05/07/2015 Comp Metabolic Wut618 Creat 1.2 mg/dL 05/07/2015 Comp Metabolic Yqi227 eGFR 60 ml/min/1.73m2 05/07/2015 Comp Metabolic Xyr310 BUN 25 mg/dL 05/07/2015 Comp Metabolic Wjl355 B/C Ratio 20.3 Ratio 05/07/2015 Comp Metabolic Ask788 CALCIUM 9.6 mg/dL 05/07/2015 Comp Metabolic Lqc707 ALK PHOS 70 U/L 05/07/2015 Comp Metabolic Dbh806 AST(SGOT) 27 U/L 05/07/2015 Comp Metabolic Beg050 ALT(SGPT) 20 U/L 05/07/2015 Comp Metabolic Kkd522 BILI T 0.4 mg/dL 05/07/2015 Comp Metabolic Glg849 ALBUMIN 4.0 g/dL 05/07/2015 Comp Metabolic Pcd157 TPRO 5.8 g/dL 05/07/2015 Comp Metabolic Skg028 GLOB 1.8 g/dL 05/07/2015 Comp Metabolic Tzs051 A/G Ratio 2.3 Ratio 05/07/2015 Comp Metabolic Fpv106 Osmo 268 mOsmo 05/07/2015 Cbc With Differential [...] hTSH II 4.07 uIU/mL 05/07/2015 Comp Metabolic Rgk706 NA 134 mEq/L 12/10/2014 Comp Metabolic Yrt237 K 4.8 mEq/L 12/10/2014 Comp Metabolic Atv056 CL 101 mEq/L 12/10/2014 Comp Metabolic Xnv868 CO2 30.0 mEq/L 12/10/2014 Comp Metabolic Lsk942 ANION GAP 8 12/10/2014 Comp Metabolic Inm553 GLUCOSE 85 mg/dL 12/10/2014 Comp Metabolic Hpl259 Creat 1.2 mg/dL 12/10/2014 Comp Metabolic Xzo748 eGFR 65 ml/min/1.73m2 12/10/2014 Comp Metabolic Kmj969 BUN 25 mg/dL 12/10/2014 Comp Metabolic Qpw208 B/C Ratio 21.7 Ratio 12/10/2014 Comp Metabolic Pgo797 CALCIUM 9.5 mg/dL 12/10/2014 Comp Metabolic Cgf851 ALK PHOS 76 U/L 12/10/2014 Comp Metabolic Qsc330 AST(SGOT) 27 U/L 12/10/2014 Comp Metabolic Hjt871 ALT(SGPT) 18 U/L 12/10/2014 Comp Metabolic Grc997 BILI T 0.5 mg/dL 12/10/2014 Comp Metabolic Ygp165 ALBUMIN 4.1 g/dL 12/10/2014 Comp Metabolic Oum261 TPRO 5.7 g/dL 12/10/2014 Comp Metabolic Zne964 GLOB 1.6 g/dL 12/10/2014 Comp Metabolic Wom640 A/G Ratio 2.6 Ratio 12/10/2014 Comp Metabolic Xkj690 Osmo 272 mOsmo 12/10/2014 B12 Fpw063 B12 1011.00 pg/ml 12/10/2014 Lipid Ord30 CHOL [...] Differential Ord2 RDW 14.3 % 12/10/2014 CBC [id number] WBC 4.1 10e9/L 02/19/2013 CBC [id number] RBC 4.39 10e12/L 02/19/2013 CBC [id number] HGB 14.1 g/dL 02/19/2013 CBC [id number] HCT DET 41.0 % 02/19/2013 CBC [id number] MCV 93.4 fL 02/19/2013 CBC [id number] MCH 32.1 pg 02/19/2013 CBC [id number] MCHC 34.4 g/dL 02/19/2013 CBC [id number] PLT 151 10e9/L 02/19/2013 CBC [id number] MPV 11.8 fL 02/19/2013 CBC [id number] YOVANNY % 63.2 % 02/19/2013 CBC [id number] LY % 22.9 % 02/19/2013 CBC [id number] MON % 11.5 % 02/19/2013 CBC [id number] EOS % 2.2 % 02/19/2013 CBC [id number] BASO % 0.2 % 02/19/2013 CBC [id number] RDW 13.8 % 02/19/2013 CBC [id number] ABS YOVANNY 2.59 10e9/L 02/19/2013 CBC [id number] ABS LYMPH 0.94 10e9/L 02/19/2013 CBC [id number] ABS MONO 0.47 10e9/L 02/19/2013 CBC [id number] ABS EOS 0.09 10e9/L 02/19/2013 CBC [id number] ABS BASO 0.01 10e9/L 02/19/2013 CBC [id number] RDW-SD 46.0 fL 02/19/2013 TSH [id number] TSH 2.094 uIU/ML 02/19/2013 FREE T4 [id number] FREE T4 1.18 NG/DL 02/19/2013 GFR CALC [id number] GFR AA >60 ML/MIN 02/19/2013 GFR CALC 4021417 GFR NON-AA >60 ML/MIN 02/19/2013 CHEM 14 [id number] AST 30 U/L 02/19/2013 CHEM 14 9217952 ALT 19 IU/L 02/19/2013 CHEM 14 [id number] BUN 21 MG/DL 02/19/2013 CHEM 14 [id number] ALBUMIN 4.4 GM/DL 02/19/2013 CHEM 14 [id number] CHLORIDE 94 MMOL/L 02/19/2013 CHEM 14 5459875 BILI TOT 0.5 MG/DL 02/19/2013 CHEM 14 8464975 ALK PHOS 75 U/L 02/19/2013 CHEM 14 1113464 SODIUM 133 MMOL/L 02/19/2013 CHEM 14 [id number] CREATININE 1.07 MG/DL 02/19/2013 CHEM 14 9303327 CALCIUM 9.6 MG/DL 02/19/2013 CHEM 14 2849171 POTASSIUM 4.6 MMOL/L 02/19/2013 CHEM 14 8836941 PROT TOT 6.1 GM/DL 02/19/2013 CHEM 14 5661756 GLUCOSE 94 MG/DL 02/19/2013 CHEM 14 8310499 BICARB 31 MMOL/L 02/19/2013 CHEM 14 9630661 ANION GAP 8 MEQ/L 02/19/2013 UA 68731 Specific [place] 1.015 DateTime(Free Text in ) UA 97750 PH 6 DateTime(Free Text in Apr) UA 61961 GLUCOSE neg DateTime(Free Text in Aprima) UA 44400 Protein neg DateTime(Free Text in Apr) UA 86232 Blood neg DateTime(Free Text in Apr) UA 96298 Bilirubin neg DateTime(Free Text in Aprima) UA 99492 Ketones neg DateTime(Free Text in Apr) UA 54337 Urobilinogen neg DateTime(Free Text in ) UA 16475 Nitrite neg DateTime(Free Text in ) UA 20444 Leukocytes neg DateTime(Free Text in ) Review of Systems System Result Effective Dates Constitutional No recent illness 2017 Constitutional No anorexia 06/21/2017 Constitutional No night sweats 2017 Constitutional No chills 06/21/2017 Constitutional No diaphoresis 06/21/2017 Constitutional No fatigue 06/21/2017 Constitutional No fever 06/21/2017 Constitutional No insomnia 06/21/2017 Eyes No eye discharge 06/21/2017 Eyes No eye erythema 06/21/2017 Ears/Nose/Throat/Neck No dizziness 2017 Ears/Nose/Throat/Neck No headache 2017 Cardiovascular No chest pain/pressure Cardiovascular No dyspnea 06/21/2017 Cardiovascular No edema 06/21/2017 Respiratory No productive sputum 2017 Respiratory No chest congestion 2017 Gastrointestinal abdominal pain 2017 Gastrointestinal No constipation 2017 Gastrointestinal No diarrhea 06/21/2017 Gastrointestinal No nausea 06/21/2017 Gastrointestinal No vomiting 06/21/2017 Genitourinary/Nephrology No dysuria 06/21 Genitourinary/Nephrology No urinary urgency 06/21/2017 Musculoskeletal No joint complaint 2017 Dermatologic No rash 06/21/2017 Dermatologic No sores 06/21/2017 Neurologic No alteration of consciousness 06/21/2017 Psychiatric anxiety 06/21/2017 Gastrointestinal gas and bloating 2017 Constitutional No recent illness 2016 Constitutional No [...] 1994 Constitutional general appearance Overall: well developed 06/21/2017 None Full Exam - General 1994 Constitutional general appearance Overall: in no acute distress 06/21/2017 None Full Exam - General 1994 Constitutional general appearance Overall: well nourished 06/21/2017 None Full Exam - General 1994 Eyes pupils and irises Overall: pupils equal, round, reactive to light and accomodation 06/21/2017 None Full Exam - General 1994 Ears/Nose/Throat otoscopic exam Overall: external auditory canals clear 06/21/2017 None Full Exam - General 1994 Ears/Nose/Throat otoscopic exam Overall: tympanic membranes clear 06/21/2017 None Full Exam - General 1994 Ears/Nose/Throat oral cavity/pharynx/larynx Overall: oral mucosa clear 06/21/2017 None Full Exam - General 1994 Ears/Nose/Throat oral cavity/pharynx/larynx Overall: oropharyngeal mucosa clear 06/21/2017 None Full Exam - General 1994 Ears/Nose/Throat oral cavity/pharynx/larynx Overall: no masses 06/21/2017 None Full Exam - General 1994 Respiratory auscultation Overall: breath sounds clear bilaterally 06/21/2017 None Full Exam - General 1994 Respiratory respiratory effort/rhythm Overall: no retractions 06/21/2017 None Full Exam - General 1994 Respiratory respiratory effort/rhythm Overall: normal rate 06/21/2017 None Full Exam - General 1994 Cardiovascular auscultation of heart Overall: regular rate 06/21/2017 None Full Exam - General 1994 Cardiovascular auscultation of heart Overall: normal heart sounds 06/21/2017 None Full Exam - General 1994 Abdomen abdominal exam Overall: no tenderness 06/21/2017 None Full Exam - General 1994 Abdomen abdominal exam Overall: normal bowel sounds 06/21/2017 None Full Exam - General 1994 Lymphatic neck nodes Overall: anterior cervical chain benign 06/21/2017 None Full Exam - General 1994 Musculoskeletal spine, ribs and pelvis Overall: ribs benign 06/21/2017 None Full Exam - General 1994 Musculoskeletal spine, ribs and pelvis Overall: spine benign 06/21/2017 None Full Exam - General 1994 Musculoskeletal spine, ribs and pelvis Overall: sacroiliac joint benign 06/21/2017 None Full Exam - General 1994 Musculoskeletal spine, ribs and pelvis Overall: right hip benign 06/21/2017 None Full Exam - General 1994 Musculoskeletal spine, ribs and pelvis Overall: left hip benign 06/21/2017 None Full Exam - General 1994 Musculoskeletal spine, ribs and pelvis Overall: good posture 06/21/2017 None Full Exam - General 1994 Musculoskeletal head and neck Overall: head atraumatic 06/21/2017 None Full Exam - General 1994 Musculoskeletal head and neck Overall: cervical spine benign 06/21/2017 None Full Exam - General 1994 Neurologic gait Overall: no ataxia, no unsteadiness 06/21/2017 None Full Exam - General 1994 Psychiatric orientation/consciousness Overall: oriented to person, place and time 06/21/2017 None Full Exam - General 1994 Psychiatric mood and affect Overall: normal mood and affect 06/21/2017 None Full Exam - General 1994 Constitutional [...] tenderness 02/19/2013 None Full Exam - General 1995 Abdomen abdominal exam Overall: normal bowel sounds 02/19/2013 None Full Exam - General 1995 Musculoskeletal spine, ribs and pelvis Overall: ribs benign 02/19/2013 None Full Exam - General 1994 Musculoskeletal spine, ribs and pelvis Overall: spine benign 02/19/2013 None Full Exam - General 1994 Musculoskeletal spine, ribs and pelvis Overall: sacroiliac joint benign 02/19/2013 None Full Exam - General 1995 Musculoskeletal [...] bilaterally 10/16/2012 None Full Exam - General 1995 Respiratory respiratory effort/rhythm Overall: no retractions 10/16/2012 [...] posture 10/16/2012 None Full Exam - General 1994 [...] clear 12/20/2011 None Full Exam - General 1995 Ears/Nose/Throat oral cavity/pharynx/larynx Overall: oral mucosa clear 12/20/2011 None Full Exam - General 1995 Ears/Nose/Throat oral cavity/pharynx/larynx Overall: oropharyngeal mucosa clear 12/20/2011 None Full Exam - General 1995 Ears/Nose/Throat oral cavity/pharynx/larynx Overall: no masses 12/20/2011 [...] sounds 12/09/2011 None Full Exam - General 1995 Musculoskeletal head and neck Overall: head atraumatic 12/09/2011 None Full Exam - General 1995 Musculoskeletal [...] performed today - SLUMS exam - score Full Exam - General Ears/Nose/Throat oral cavity/pharynx/larynx [...] bilaterally 01/26/2011 None Full Exam - General 1995 Respiratory respiratory effort/rhythm Overall: no retractions 01/26/2011 None Full Exam - General 1995 Respiratory respiratory effort/rhythm Overall: normal rate 01/26/2011 None Full Exam - General 1995 Cardiovascular auscultation of heart Overall: regular rate 01/26/2011 None Full Exam - General 1995 Cardiovascular auscultation of heart Overall: normal heart sounds 01/26/2011 None Full Exam - General 1994 Cardiovascular auscultation of heart Overall: no murmurs 01/26/2011 None Full Exam - General 1995 Constitutional general appearance Overall: well nourished 01/15/2011 None Full Exam - General 1995 Constitutional general appearance Overall: well developed 01/15/2011 None Full Exam - General 1995 Constitutional general appearance Overall: in no acute distress 01/15/2011 None Full Exam - General 1995 Constitutional general appearance Hygiene/Attention to Grooming: good hygiene 01/15/2011 None Full Exam - General 1995 Constitutional general appearance Hygiene/Attention to Grooming: normal grooming 01/15/2011 None Full Exam - General 1995 Eyes conjunctiva /eyelids Overall: conjunctiva clear 01/15/2011 [...] size 01/2011 None Full Exam - General 1995 Neck thyroid Overall: no mass lesions 01/15/2011 [...] FLU VACC PRSV FREE INC ANTIG CPT-4: 87644 01/25/2017 THER/PROPH/DIAG INJ SC/IM CPT-4: 02935 11/25/2016 TRIAMCINOLONE ACET INJ NOS CPT-4: J3301 11/25/2016 DRAIN/INJECT JOINT/BURSA CPT-4: 37103 02/17/2016 IMMUNIZATION ADMIN CPT -4: 90007 05/06/2015 PNEUMOCOCCAL VACC 13 TIFFANIE IM Formatting Model/CDA Sections, Assigned to/Celia Minaya SNOMED CT: [id number] CPT-4: 96044Tceompi 05/06/2015 ADMIN INFLUENZA VIRUS VAC CPT-4: G0008 02/19/2015 FLU VACC 4 TIFFANIE 3 YRS PLUS IM Formatting Model/CDA Sections, Assigned to SNOMED CT: [id number] CPT-4: 47378Ujnemmd 02/19/2015 URINALYSIS NONAUTO W/O SCOPE CPT-4: 25557 05/23/2014 ADMIN INFLUENZA VIRUS VAC CPT-4: G0008 03/26/2014 FLU VAC NO PRSV 4 TIFFANIE 3 YRS+ Assigned to/Celia Minaya CPT-4: 51229Nzuhnws 03/26/2014 PRESCRIP TRANSMIT VIA ERX SY CPT-4: G8553 04/04/2013 ROUTINE VENIPUNCTURE CPT-4: 55828 02/19/2013 ADMIN INFLUENZA VIRUS VAC CPT-4: G0008 02/06/2013 FLULAVAL VACC, 3 YRS & >, IM CPT-4: Q2036 02/06/2013 [id number] EST. PATIENT, LEVEL IV CPT-4: 90716 06/19/2012 PRESCRIP TRANSMIT VIA ERX SY CPT-4: G8553 06/19/2012 PRESCRIP TRANSMIT VIA ERX SY CPT-4: G8553 03/20/2012 PRESCRIP TRANSMIT VIA ERX SY CPT-4: G8553 06/23/2011 IMMUNIZATION ADMIN CPT -4: 30532 02/25/2011 ZOSTER VACC SC (No charge, patient supplied vaccine) CPT-4: 06112ZJ 02/25/2011 ADMIN PNEUMOCOCCAL VACCINE SNOMED CT: 76287456 CPT-4: G0009 02/16/2011 Pneumococcal Polysaccharide Vaccine, 23-Valent, Ad CPT-4: 63341 02/16/2011 ADMIN INFLUENZA VIRUS VAC CPT-4: G0008 02/09/2011 FLULAVAL VACC, 3 YRS & >, IM CPT-4: Q2036 02/09/2011 PRESCRIP TRANSMIT VIA ERX SY CPT-4: G8553 02/01/2011 URINALYSIS NONAUTO W/O SCOPE CPT-4: 12307 01/27/2011 Vital Signs Date Vital 06/21/2017 Blood Pressure 1: 142/80 Code : 8480-6 BMI: 21.0 Code : 54492-6 Heart Rate 1 : 63 bpm Height: 5'9" SpO2: 98% Weight: 142 lbs 03/21/2017 Blood Pressure 1: 128/66 Code : 8480-6 BMI: 20.8 Code : 28975-9 Heart Rate 1 : 61 bpm Height: 5'9" SpO2: 98% Weight: 141 lbs 03/08/2017 Blood Pressure 1: 134/68 Code : 8480-6 BMI: 20.4 Code : 11834-8 Heart Rate 1 : 56 bpm Height: 5'9" SpO2: 99% Weight: 138 lbs 01/25/2017 Blood Pressure 1: 98/62 Code : 8480-6 BMI: 20.6 Code : 73615-6 Heart Rate 1 : 71 bpm Height: 5'9" SpO2: 97% Weight: 139 lbs 8 oz 12/20/2016 Blood Pressure 1: 120/68 Code : 8480-6 BMI: 20.4 Code : 25903-8 Heart Rate 1 : 70 bpm Height: [...] Code : 8480-6 BMI: 20.7 Code : 95827-8 Heart Rate 1 : 74 bpm Height: 5'9" SpO2: 95% Weight: 140 lbs 08/23/2016 Blood Pressure 1: 118/68 Code : 8480-6 BMI: 20.8 Code : 80289-4 Heart Rate 1 : 54 bpm Height: 5'9" SpO2: 97% Weight: 141 lbs 04/26/2016 Blood Pressure 1: 108/64 Code : 8480-6 BMI: 21.0 Code : 46302-6 Heart Rate 1 : 62 bpm Height: 5'9" SpO2: 95% Weight: 142 lbs 02/17/2016 Blood Pressure 1: 138/80 Code : 8480-6 BMI: 20.2 Code : 44772-8 Heart Rate 1 : 76 bpm Height: 5'9" SpO2: 97% Weight: 137 lbs 02/09/2016 Blood Pressure 1: 140/76 Code : 8480-6 BMI: 20.2 Code : 36259-3 Heart Rate 1 : 72 bpm Height: 5'9" SpO2: 96% Weight: 137 lbs 02/03/2016 Blood Pressure 1: 136/80 Code : 8480-6 BMI: 20.7 Code : 73489-7 Heart Rate 1 : 86 bpm Height: 5'9" SpO2: 96% Weight: 140 lbs 01/26/2016 Blood Pressure 1: 144/78 Code : 8480-6 BMI: 20.7 Code : 83506-8 Heart Rate 1 : 73 bpm Height: 5'9" SpO2: 97% Temperature: 37.0 (C) / 98.6 (F) Weight: 140 lbs 01/21/2016 Blood Pressure 1: 116/62 Code : 8480-6 BMI: 20.4 Code : 82704-9 Heart Rate 1 : 66 bpm Height: 5'9" SpO2: 97% Weight: 138 lbs 12/29/2015 Blood Pressure 1: 130/74 Code : 8480-6 BMI: 20.4 Code : 00087-1 Heart Rate 1 : 51 bpm Height: 5'9" SpO2: 98% Weight: 138 lbs 09/02/2015 Blood Pressure 1: 126/60 Code : 8480-6 BMI: 22.3 Code : 59153-0 Heart Rate 1 : 55 bpm Height: 5'9" SpO2: 96% Weight: 151 lbs 05/06/2015 Blood Pressure 1: 132/72 Code : 8480-6 BMI: 21.0 Code : 59745-7 Heart Rate 1 : 63 bpm Height: 5'9" SpO2: 97% Weight: 142 lbs 03/05/2015 Blood Pressure 1: 130/68 Code : 8480-6 BMI: 21.0 Code : 69494-7 Heart Rate 1 : 61 bpm Height: 5'9" SpO2: 96% Weight: 142 lbs 12/04/2014 Blood Pressure 1: 122/64 Code : 8480-6 BMI: 21.3 Code : 40142-9 Heart Rate 1 : 72 bpm Height: 5'9" Weight: 144 lbs 09/24/2014 Blood Pressure 1: 142/80 Code : 8480-6 BMI: 20.4 Code : 96511-1 Heart Rate 1 : 80 bpm Height: 5'9" Weight: 138 lbs 09/09/2014 Blood Pressure 1: 122/74 Code : 8480-6 BMI: 20.5 Code : 19134-4 Heart Rate 1 : 64 bpm Height: 5'9" Weight: 139 lbs 07/26/2014 Blood Pressure 1: 136/82 Code : 8480-6 BMI: 20.4 Code : 47716-4 Heart Rate 1 : 87 bpm Height: 5'9" SpO2: 92% Weight: 138 lbs 07/10/2014 Blood Pressure 1: 130/74 Code : 8480-6 BMI: 21.1 Code : 25065-0 Heart Rate 1 : 64 bpm Height: 5'9" Weight: 143 lbs 06/06/2014 Blood Pressure 1: 142/88 Code : 8480-6 BMI: 20.4 Code : 78988-4 Heart Rate 1 : 68 bpm Height: 5'9" Weight: 138 lbs 05/29/2014 Blood Pressure 1: 108/72 Code : 8480-6 BMI: 20.5 Code : 46131-2 Heart Rate 1 : 60 bpm Height: 5'9" Weight: 139 lbs 05/20/2014 Blood Pressure 1: 140/72 Code : 8480-6 BMI: 21.6 Code : 32195-7 Heart Rate 1 : 60 bpm Height: 5'9" SpO2: 98% Temperature: 36.2 (C) / 97.2 (F) Weight: 146 lbs 03/25/2014 Blood Pressure 1: 128/60 Code : 8480-6 BMI: 21.4 Code : 04009-2 Heart Rate 1 : 62 bpm Height: 5'9" Weight: 145 lbs 02/08/2014 Blood Pressure 1: 136/82 Code : 8480-6 BMI: 21.3 Code : 67507-0 Heart Rate 1 : 68 bpm Height: 5'9" Weight: 144 lbs 12/24/2013 Blood Pressure 1: 122/76 Code : 8480-6 BMI: 21.6 Code : 31742-9 Heart Rate 1 : 58 bpm Height: 5'9" Weight: 146 lbs 11/20/2013 Blood Pressure 1: 112/62 Code : 8480-6 BMI: 20.7 Code : 56135-3 Heart Rate 1 : 56 bpm Height: 5'9" Weight: 140 lbs 10/30/2013 Blood Pressure 1: 130/68 Code : 8480-6 BMI: 20.1 Code : 70709-4 Heart Rate 1 : 68 bpm Height: 5'9" SpO2: 96% Weight: 136 lbs 10/08/2013 Blood Pressure 1: 128/72 Code : 8480-6 BMI: 20.8 Code : 32140-5 Heart Rate 1 : 60 bpm Height: 5'9" Temperature: 36.6 (C) / 97.8 (F) Weight: 141 lbs 06/18/2013 Blood Pressure 1: 124/78 Code : 8480-6 BMI: 20.8 Code : 34109-1 Heart Rate 1 : 64 bpm Height: 5'9" Weight: 141 lbs 04/04/2013 Blood Pressure 1: 138/60 Code : 8480-6 BMI: 20.8 Code : 83906-9 Heart Rate 1 : 56 bpm Height: 5'9" Weight: 141 lbs 02/19/2013 Blood Pressure 1: 152/74 Code : 8480-6 BMI: 21.0 Code : 16396-4 Heart Rate 1 : 60 bpm Height: 5'9" Weight: 142 lbs 10/16/2012 Blood Pressure 1: 122/70 Code : 8480-6 BMI: 20.8 Code : 81585-2 Heart Rate 1 : 64 bpm Height: 5'9" Weight: 141 lbs 06/19/2012 Blood Pressure 1: 120/72 Code : 8480-6 BMI: 21.1 Code : 82933-7 Heart Rate 1 : 60 bpm Height: 5'9" Weight: 143 lbs 03/20/2012 Blood Pressure 1: 114/76 Code : 8480-6 Heart Rate 1: 60 bpm Respiratory Rate : 16 bpm Weight: 143 lbs 01/24/2012 Blood Pressure 1: 134/70 Code : 8480-6 Heart Rate 1: 64 bpm Weight: 143 lbs 12/20/2011 Blood Pressure 1: 98/72 Code : 8480-6 BMI: 21.1 Code : 54078-7 Heart Rate 1 : 60 bpm Height: 5'9" Respiratory Rate: 16 bpm Weight: 143 lbs 12/09/2011 Blood Pressure 1: 110/60 Code : 8480-6 Heart Rate 1: 66 bpm SpO2: 98% Weight: 141 lbs 08/25/2011 Blood Pressure 1: 112/70 Code : 8480-6 BMI: 20.8 Code : 87398-8 Heart Rate 1 : 54 bpm Height: 5'9" Respiratory Rate: 16 bpm Weight: 141 lbs 06/23/2011 Blood Pressure 1: 126/64 Code : 8480-6 Heart Rate 1: 60 bpm Respiratory Rate : 16 bpm Weight: 142 lbs 04/19/2011 Blood Pressure 1: 124/64 Code : 8480-6 BMI: 21.1 Code : 72986-7 Heart Rate 1 : 64 bpm Height: 5'9" Respiratory Rate: 16 bpm Weight: 143 lbs 03/23/2011 Blood Pressure 1: 137/71 Code : 8480-6 Heart Rate 1: 57 bpm 03/08/2011 Blood Pressure 1: 154/70 Code : 8480-6 BMI: 20.8 Code : 15458-2 Heart Rate 1 : 60 bpm Height: 5'9" Respiratory Rate: 16 bpm Weight: 141 lbs 03/01/2011 Blood Pressure 1: 178/80 Code : 8480-6 Blood Pressure 2: 168/70 Code: 8480-6 BMI: 24.1 Code: 60474-8 Heart Rate 1: 60 bpm Height: 5'9" Respiratory Rate: 16 bpm Weight: 163 lbs 02/01/2011 Blood Pressure 1: 162/84 Code : 8480-6 Heart Rate 1: 60 bpm Respiratory Rate : 16 bpm Weight: 144 lbs 01/27/2011 Blood Pressure 1: 138/54 Code : 8480-6 BMI: 21.1 Code : 55013-2 Heart Rate 1 : 68 bpm Height: 5'9" Respiratory Rate: 16 bpm Weight: 143 lbs 01/26/2011 Blood Pressure 1: 148/86 Code : 8480-6 BMI: 21.3 Code : 89589-6 Heart Rate 1 : 74 bpm Height: 5'9" Weight: 144 lbs 01/15/2011 Blood Pressure 1: 136/76 Code : 8480-6 BMI: 20.5 Code : 32021-6 Heart Rate 1 : 70 bpm Height: 5'10" Weight: 141 lbs 01/06/2011 Blood Pressure 1: 148/72 Code : 8480-6 BMI: 20.2 Code : 87313-6 Heart Rate 1 : 72 bpm Height: 5'10" Respiratory Rate: 12 bpm Weight: 139 lbs Functional Status No Functional Status data History of Present Illness Symptom Name Status Result Effective Date Notes hypertension Quality primary hypertension 06/21/2017 None hypertension Quality stable 06/21/2017 None hypertension Onset and Resolution ongoing 06/21/2017 None hypertension Onset of Symptom during adulthood 06/21/2017 None hypertension Blood Pressure Values patient checking blood pressure at home - did not bring in readings 06/21/2017 None hypertension Alleviating Factors medication 06/21/2017 None hypertension Pertinent Findings Denies dizziness 06/21/2017 None hypertension Pertinent Findings Denies dyspnea 06/21/2017 None hypertension Pertinent Findings Denies edema 06/21/2017 None pain, generalized Location diffusely 06/21/2017 None pain, generalized Location in multiple limbs 06/21/2017 None pain, generalized Location on the abdomen 06/21/2017 None pain, generalized Quality aching 06/21/2017 None pain, generalized Onset and Resolution ongoing 06/21/2017 None pain, generalized Quality intermittent 06/21/2017 None pain, generalized Exacerbating Factors exertion 06/21/2017 None pain, generalized Alleviating Factors rest 06/21/2017 None pain, generalized Triggers no known associated factors 06/21/2017 None hypertension Quality primary hypertension 03/21/2017 None hypertension [...] data Encounters Encounter Performer Location Codes Date ([id number]) 12305 EST. PATIENT, LEVEL IV Diagnosis: Essential (primary) hypertension[ICD10: I10] Diagnosis: Gas pain[ICD10: R14.1] Diagnosis: Generalized anxiety disorder[ICD10: F41.1] Diagnosis: Cervicalgia[ICD10: M54.2] Diagnosis: Pain in thoracic spine[ICD10: M54.6] Diagnosis: Unsteadiness on feet[ICD10: R26.81] Ale Carlos MD, [facility] CPT-4: 24459 06/21/2017 ([id number]) 51809 EST. PATIENT, LEVEL III Diagnosis: Essential (primary) hypertension[ICD10: I10] Ale Carlos MD, [facility] CPT-4: 57388 03/21/2017 92019 EST. PATIENT, LEVEL III Diagnosis: Other allergic rhinitis[ICD10: J30.89] Nelly Carlos MD, [facility] CPT-4: 31430 03/08/2017 ([id number]) 76877 EST. PATIENT, LEVEL III Diagnosis: Encounter for immunization[ICD10: Z23] Diagnosis: Other hypotension[ICD10: I95.89] Ale Carlos MD, [facility] CPT-4: 07644 01/25/2017 ([id number]) 10532 EST. PATIENT, LEVEL III Diagnosis: Essential (primary) hypertension[ICD10: I10] Diagnosis: Acute recurrent maxillary sinusitis[ICD10: J01.01] Ale Carlos MD [facility] CPT-4: 56432 12/20/2016 ([id number]) 94037 EST. PATIENT, LEVEL III Diagnosis: Acute recurrent ethmoidal sinusitis[ICD10: J01.21] Ale Carlos MD [facility] CPT-4: 14033 12/01/2016 ([id number]) 96762 EST. PATIENT, LEVEL III Diagnosis: Bronchitis, not specified as acute or chronic[ICD10: J40] Diagnosis: Cough[ICD10: R05] Ale Carlos MD [facility] CPT-4: 54482 11/25/2016 ([id number]) 06618 EST. PATIENT, LEVEL III Diagnosis: Cough[ICD10: R05] Diagnosis: Bronchitis, not specified as acute or chronic[ICD10: J40] Diagnosis: Candidal esophagitis[ICD10: B37.81] Ale Carlos MD [facility] CPT-4: 74499 11/18/2016 ([id number]) 74993 EST. PATIENT, LEVEL IV Diagnosis: Essential (primary) hypertension[ICD10: I10] Diagnosis: Mild cognitive impairment, so stated[ICD10: G31.84] Ale Carlos MD [facility] CPT-4: 11180 08/23/2016 ([id number]) 98851 EST. PATIENT, LEVEL III Diagnosis: Essential (primary) hypertension[ICD10: I10] Ale Carlos MD [facility] CPT-4: 30129 04/26/2016 ([id number]) Miscellaneous no charge Diagnosis: Olecranon bursitis, right elbow[ICD10: M70.21] Nelly Carlos MD [facility] CPT-4: 20004 02/09/2016 ([id number]) 61941 EST. PATIENT, LEVEL III Diagnosis: Olecranon bursitis, right elbow[ICD10: M70.21] Nelly Carlos MD [facility] CPT-4: 68973 02/03/2016 ([id number]) 42498 EST. PATIENT, LEVEL III Diagnosis: Generalized abdominal tenderness[ICD10: R10.817] Ale Carlos MD, [facility] CPT-4: 57993 01/26/2016 85788 EST. PATIENT, LEVEL IV Diagnosis: Other allergic rhinitis[ICD10: J30.89] Ruchi Carlos MD, [facility] CPT-4: 80357 01/21/2016 ([id number]) 74123 EST. PATIENT, LEVEL IV Diagnosis: Essential (primary) hypertension[ICD10: I10] Diagnosis: Hypo-osmolality and hyponatremia[ICD10: E87.1] Ale Carlos MD, [facility] CPT-4: 30124 12/29/2015 ([id number]) 27848 EST. PATIENT, LEVEL IV Diagnosis: Essential (primary) hypertension[ICD10: I10] Diagnosis: Mild cognitive impairment, so stated[ICD10: G31.84] Ale Carlos MD, [facility] CPT-4: 93287 09/02/2015 ([id number]) 90338 EST. PATIENT, LEVEL IV Diagnosis: Mixed hyperlipidemia[ICD10: E78.2] Diagnosis: Generalized anxiety disorder[ICD10: F41.1] Diagnosis: Mild cognitive impairment, so stated[ICD10: G31.84] Diagnosis: Essential (primary) hypertension[ICD10: I10] Diagnosis: Encounter for immunization[ICD10: Z23] Ale Carlos MD, [facility] CPT-4: 02348 05/06/2015 ([id number]) 54544 EST. 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 PATIENT, LEVEL IV Diagnosis: ESSENTIAL HYPERTENSION[ICD9: 401.9] Diagnosis: GENERALIZED ANXIETY DISEASE[ICD9: 300.02] Diagnosis: MILD COGNITIVE IMPAIREMT[ICD9: 331.83] Diagnosis: IRRITABLE COLON[ICD9: 564.1] Ale Carlos MD, [facility] CPT- 4: 73849 12/04/2014 ([id number]) 69907 EST. PATIENT, LEVEL IV Diagnosis: Abdominal pain[ICD9: 789.00] Diagnosis: GENERALIZED ANXIETY DISEASE[ICD9: 300.02] Diagnosis: Hyponatremia[ICD9: 276.1] Diagnosis: ESSENTIAL HYPERTENSION[ICD9: 401.9] Nelly Carlos MD, [facility] CPT-4: 02719 09/24/2014 ([id number]) 32623 EST. PATIENT, LEVEL IV Diagnosis: ESSENTIAL HYPERTENSION[ICD9: 401.9] Diagnosis: Osteoarthritis[ICD9: 715.90] Diagnosis: Mild cognitive impairment with memory loss[ICD9: 331.83] Ale Carlos MD, [facility] CPT-4: 54914 09/09/2014 ([id number]) 77223 EST. PATIENT, LEVEL III Diagnosis: GENERALIZED ANXIETY DISEASE[ICD9: 300.02] Diagnosis: Depression[ICD9: 311] Ale Carlos MD, [facility] CPT-4: 17682 07/26/2014 ([id number]) 28385 EST. PATIENT, LEVEL IV Diagnosis: ESSENTIAL HYPERTENSION[ICD9: 401.9] Diagnosis: GENERALIZED ANXIETY DISEASE[ICD9: 300.02] Diagnosis: MILD COGNITIVE IMPAIREMT[ICD9: 331.83] Ale Carlos MD, [facility] CPT-4: 49548 07/10/2014 ([id number]) 60124 EST. PATIENT, LEVEL IV Diagnosis: Dizziness[ICD9: 780.4] Diagnosis: GENERALIZED ANXIETY DISEASE[ICD9: 300.02] Diagnosis: Depression[ICD9: 311] Diagnosis: ESSENTIAL HYPERTENSION[ICD9: 401.9] Diagnosis: Urinary frequency[ICD9: 788.41] Ale Carlos MD, [facility] CPT- 4: 59952 06/06/2014 ([id number]) 83781 EST. PATIENT, LEVEL IV Diagnosis: ESSENTIAL HYPERTENSION[ICD9: 401.9] Diagnosis: GENERALIZED ANXIETY DISEASE[ICD9: 300.02] Diagnosis: Mild cognitive impairment with memory loss[ICD9: 331.83] Ale Carlos MD, [facility] CPT-4: 10692 05/29/2014 ([id number]) 09518 EST. PATIENT, LEVEL IV Diagnosis: Pneumonia[ICD9: 486] Diagnosis: COUGH[ICD9: 786.2] Diagnosis: Hyponatremia[ICD9: 276.1] Diagnosis: ALLERGIC RHINITIS[ICD9: 477.9] Ale Carlos MD, [facility] CPT- 4: 50908 05/20/2014 ([id number]) 36951 EST. PATIENT, LEVEL III Diagnosis: ESSENTIAL HYPERTENSION[ICD9: 401.9] Diagnosis: Cough[ICD9: 786.2] Ale Carlos MD [facility] CPT-4: 37446 03/25/2014 ([id number]) 19750 EST. PATIENT, LEVEL III Diagnosis: COUGH[ICD9: 786.2] Diagnosis: ALLERGIC RHINITIS[ICD9: 477.9] Nelly Carlos MD [facility] CPT-4: 45330 02/08/2014 ([id number]) 03201 EST. PATIENT, LEVEL III Diagnosis: ESSENTIAL HYPERTENSION[ICD9: 401.9] Diagnosis: Nasal congestion[ICD9: 478.19] Ale Carlos MD [facility] CPT- 4: 20924 12/24/2013 ([id number]) 40895 EST. PATIENT, LEVEL III Diagnosis: Seasonal allergies[ICD9: 477.9] Diagnosis: Nasal congestion[ICD9: 478.19] Diagnosis: ABNORMAL LOSS OF WEIGHT[ICD9: 783.21] Ale Carlos MD, [facility] CPT-4: 90438 11/20/2013 ([id number]) 58392 EST. PATIENT, LEVEL III Diagnosis: ABNORMAL LOSS OF WEIGHT[ICD9: 783.21] Diagnosis: MALAISE AND FATIGUE[ICD9: 780.79] Diagnosis: Hyponatremia[ICD9: 276.1] Nelly Carlos MD, [facility] CPT-4: 89763 10/30/2013 ([id number]) 41092 EST. PATIENT, LEVEL III Diagnosis: Acute maxillary sinusitis[ICD9: 461.0] Diagnosis: COUGH[ICD9: 786.2] Ale Carlos MD, [facility] CPT-4: 13241 10/08/2013 ([id number]) 55531 EST. PATIENT, LEVEL IV Diagnosis: ESSENTIAL HYPERTENSION[SNOMED: 22574540] Diagnosis: GENERALIZED ANXIETY DISEASE[ICD9: 300.02] Diagnosis: OSTEOARTH NOS-UNSPEC[ICD9: 715.90] Diagnosis: Coronary artery disease[ICD9: 414.00] Ale Carlos MD [facility] CPT-4: 74675 06/18/2013 ([id number]) 72700 EST. PATIENT, LEVEL III Diagnosis: ESSENTIAL HYPERTENSION[SNOMED: 25689082] VICKEY Dyson MD CPT-4: 89548 04/04/2013 ([id number]) 90998 EST. PATIENT, LEVEL IV Diagnosis: ESSENTIAL HYPERTENSION[SNOMED: 55244372] Diagnosis: Leukopenia[ICD9: 288.50] Diagnosis: Encounter for long-term (current) use of other medications[ICD9: V58.69] Ale Carlos MD [facility] CPT-4: 52122 2012 ([id number]) 94006 EST. PATIENT, LEVEL IV Diagnosis: ESSENTIAL HYPERTENSION[SNOMED: 00064923] Diagnosis: MILD COGNITIVE IMPAIREMT[ICD9: 331.83] Ale Carlos MD [facility] CPT-4: 00666 10/16/2012 ([id number]) 42632 EST. PATIENT, LEVEL IV Diagnosis: ESSENTIAL HYPERTENSION[SNOMED: 05304560] Diagnosis: GENERALIZED ANXIETY DISEASE[ICD9: 300.02] Diagnosis: IRRITABLE COLON[ICD9: 564.1] Ale Carlos MD [facility] CPT- 4: 16788 03/20/2012 79143 EST. PATIENT, LEVEL IV Diagnosis: ESSENTIAL HYPERTENSION[SNOMED: 61324270] Diagnosis: Osteoarthritis[ICD9: 715.90] Diagnosis: HYPERLIPIDEMIA[ICD9: 272.4] Ale Carlos MD [facility] CPT- 4: 40109 01/24/2012 19155 EST. PATIENT, LEVEL IV Diagnosis: ESSENTIAL HYPERTENSION[SNOMED: 12847355] Diagnosis: BPH W URINARY OBS/LUTS[ICD9: 600.01] Ale Carlos MD [facility] CPT-4: 79017 12/20/2011 ([id number]) 32510 EST. PATIENT, LEVEL III Diagnosis: Lump in the groin[ICD9: 789.30] Ale Carlos MD [facility] CPT- 4: 44563 12/09/2011 ([id number]) 50825 EST. PATIENT, LEVEL IV Diagnosis: ESSENTIAL HYPERTENSION[SNOMED: 82770979] Diagnosis: Mild cognitive impairment[ICD9: 331.83] Ale Carlos MD [facility] CPT-4: 56021 08/25/2011 ([id number]) 17515 EST. PATIENT, LEVEL IV Diagnosis: ESSENTIAL HYPERTENSION[SNOMED: 49798589] Diagnosis: GENERALIZED ANXIETY DISEASE[ICD9: 300.02] Diagnosis: MILD COGNITIVE IMPAIREMT[ICD9: 331.83] Diagnosis: IRRITABLE COLON[ICD9: 564.1] Ale Carlos MD, [facility] CPT- 4: 88114 06/23/2011 [id number]) 66749 EST. 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 PATIENT, LEVEL I Diagnosis: ESSENTIAL HYPERTENSION[SNOMED: 48244929] Ale Carlos MD [facility] CPT-4: 68128 03/23/2011 16936 EST. PATIENT, LEVEL III Diagnosis: ESSENTIAL HYPERTENSION[SNOMED: 19660236] Diagnosis: Laceration of finger, index[ICD9: 883.0] Ale Carlos MD [facility] CPT-4: 55894 03/08/2011 09430 EST. PATIENT, LEVEL III Diagnosis: ESSENTIAL HYPERTENSION[SNOMED: 62999064] Diagnosis: Irritable bowel syndrome (IBS)[ICD9: 564.1] Ale Carlos MD [facility] CPT-4: 10149 03/01/2011 27134 EST. PATIENT, LEVEL IV Diagnosis: Mild cognitive impairment with memory loss[ICD9: 331.83] Diagnosis: GENERALIZED ANXIETY DISEASE[ICD9: 300.02] Diagnosis: Bruising[ICD9: 924.9] Diagnosis: HYDROCELE[ICD9: 603.9] Ale Carlos MD, [facility] CPT-4: 93341 02/01/2011 63809 EST. PATIENT, LEVEL III Diagnosis: Testicular pain[ICD9: 608.9] Diagnosis: GENERALIZED ANXIETY DISEASE[ICD9: 300.02] Nelly Carlos MD, [facility] CPT-4: 07084 01/27/2011 28780 EST. PATIENT, LEVEL III Diagnosis: Arm bruise[ICD9: 923.9] Nelly Carlos MD, [facility] CPT-4: 26956 01/26/2011 OFFICE VISIT, NEW - LEVEL 4 Diagnosis: DIARRHEA[ICD9: 787.91] Diagnosis: Elevated liver function tests[ICD9: 790.6] Diagnosis: Abdominal discomfort[ICD9: 789.00] Ale Carlos MD, [facility] CPT-4: 21268 01/06/2011 Plan of Care Planned Activity Notes Codes Status Date Visit Plan: Neck and upper back pain and gait unsteadiness - referral to [facility] for upper and low back pain and left arm pain and have gait eval. get Aspercreme from [employer] for your upper neck/upper back. Abdominal upset/cramping - lactaid pills - take before you drink milk or eat cheese or ice cream or yogurt use gas-ex one pill three times daily Chronic anxiety - stable - continue with current management. 06/21/2017 Patient Education: Patient Medication Summary Completed 06/21/2017 Visit Plan: Hypertension - well controlled - continue with current medications, continue with no added salt diet. Pt has been encouraged to exercise daily. The pt has been advised to call the office if there are any acute concerns about change in blood pressure readings at home. 03/21/2017 Appointment: Ale Carlos WPtel[facility] ([facility] 03/21/2017 Patient Education: Patient Medication Summary Completed [...] allergy spray. 03/08/2017 Appointment: Nelly Keen WPtel: [facility] (30 min) Complex 03/08/2017 Patient Education: Patient [...] flu shot 01/25/2017 Appointment: Ale Carlos WPtel: [facility] (30 min) Complex 01/25/2017 Patient Education: Patient [...] not improving. 12/20/2016 Appointment: Ale Carlos WPtel: [address] [place] [address] (30 min) Complex 12/20/2016 Patient Education: Patient Medication Summary Completed 12/20/2016 Patient Education: Hypertension Completed 12/20/2016 Appointment: Ruchi Agee WPtel: [facility]1 [facility] [place] [address] - Annual Wellness Visit 12/03/2016 Visit Plan: [...] acutely worsen. 11/25/2016 Appointment: Ale Carlos WPtel: [facility] (15 min) Moderate 11/25/2016 Patient Education: Patient [...] have thrush. 11/18/2016 Appointment: Ale Carlos WPtel: [address] [place], [place] [phone] (15 min) Moderate 11/18/2016 Patient Education: Patient [...] and namenda. labs to be done from [facility] 08/23/2016 Appointment: Ale Carlos WPtel: [address] [place], [place] [address] (30 min) Complex 08/23/2016 Patient Education: Patient [...] at home. 04/26/2016 Appointment: Ale Carlos WPtel: [address] [place], [place] [phone] (30 min) Complex 04/26/2016 Patient Education: Patient Medication Summary Completed 04/26/2016 Visit Plan: Joint effusion - recommended drainage and referral to orthopedic surgeon for surgical debridement of bursa 02/17/2016 Appointment: Ale Carlos WPtel: [address] [place] [address] (30 min) Complex 02/17/2016 Patient Education: Patient Medication Summary Completed 02/17/2016 Visit Plan: Bursitis-right elbow-drained today in the office-increase anti inflammatories for the next 5 days as directed-call if symptoms do not resolve, swelling returns or new symptoms develop-patient verbalized understanding of plan. 02/09/2016 Appointment: Nelly Keen WPtel: [phone] (30 min) Complex 02/09/2016 Patient Education: Patient Medication Summary Completed 02/09/2016 Patient Education: Patient Medication Summary Completed 02/05/2016 Care Plan: Metabolic Pending 02/05/2016 Visit Plan: Bursitis-right elbow-drained today in the office-increase anti inflammatories for the next 5 days as directed-call if symptoms do not resolve, swelling returns or new symptoms develop-patient verbalized understanding of plan. 02/03/2016 Appointment: Nelly Keen WPtel: [facility]5 [phone] (30 min) Complex 02/03/2016 Patient Education: Patient Medication Summary Completed 02/03/2016 Patient Education: Patient Medication Summary Completed 01/30/2016 Care Plan: Metabolic Due on Pending 01/30/2016 Visit Plan: Abdominal pain - nausea - Pt to have IV fluids at hospital 01/26/2016 Appointment: Ale Carlos WPtel: [facility] (30 min) Complex 01/26/2016 Patient Education: Patient [...] allergy spray. 01/21/2016 Appointment: [facility] Ke[facility]el[phone] (30 min) Complex 01/21/2016 Patient Education: Patient [...] of treatment. 09/02/2015 Appointment: Ale Carlos WPtel: [phone] (15 min) Moderate 09/02/2015 Patient Education: Patient [...] injection today 05/06/2015 Appointment: Ale Carlos WPtel: [facility] (15 min) Moderate 05/06/2015 Patient Education: Patient Medication Summary Completed 05/06/2015 Patient Education: Hypertension Completed 05/06/2015 Care Plan: COMPLETE CBC AUTOMATED LOINC : 33941-1 Ordered 05/06/2015 Visit Plan: Hypertension - well [...] current medications. 03/05/2015 Appointment: Ale Carlos WPtel: [facility] (30 min) Complex 03/05/2015 Patient Education: Patient [...] -has improved. 12/04/2014 Appointment: Ale Carlos WPtel: [facility] Follow up 12/04/2014 Patient Education: Patient Medication [...] 09/24/2014 Care Plan: CT ABD & PELV / REGNS [facility] : 19934-2 Ordered 09/24/2014 Visit Plan: Hypertension - well [...] THAT HE SHOULD NOT BE DRIVING TO [place] 07/26/2014 Appointment: Sick 07/26/2014 Appointment: Sick 07/26/2014 [...] medication list. 07/10/2014 Appointment: Ale Carlos WPtel: [phone] [facility] Follow up 07/10/2014 Patient Education: Patient Medication Summary Completed 07/10/2014 Patient Education: Hypertension Completed 07/10/2014 Appointment: Ale Carlos WPtel: [phone] [facility] Follow up 06/20/2014 Appointment: Ale Carlos WPtel: [phone] [facility] Follow up 06/10/2014 Visit Plan: Anxiety and [...] in blood pressure readings at home. Urinary lorrdxrgx-OAG-cqgpje flomax to bedtime Dizziness-stop hydrocodone and ativan [...] WEEKS 05/29/2014 Appointment: Ale Carlos WPtel: [phone] Sick 05/29/2014 Patient Education: Patient Medication Summary Completed 05/29/2014 Patient Education: Hypertension Completed 05/29/2014 Appointment: Ale Carlos [facility]Ptel: [phone] Lab Draw 05/23/2014 Patient Education: Patient Medication Summary Completed 05/23/2014 Visit Plan: Pneumonia - Pt has been diagnosed with pneumonia by physical exam. A chest xray has been ordered as have antibiotics. The pt is aware of the diagnosis and the need for acute treatment of this illness. Qlzlgqiue-zgmdh-hmlhkpl flonase nasal spray Hyponatremia-increase gatorade as directed ADDENDUM: RECOMMEND PATIENT START ON ALBUTEROL NEBULIZER TREATMENTS EVERY 4 HOURS NEEDED FOR SHORTNESS OF BREATH/WHEEZING. DX SECONDARY PNEUMONIA FROM INFLUENZA, COUGH 05/20/2014 Visit Plan: Pneumonia - Pt has been diagnosed with pneumonia by physical exam. A chest xray has been ordered as have antibiotics. The pt is aware of the diagnosis and the need for acute treatment of this illness. Nixovceft-wifzi-pxcpukt flonase nasal spray Hyponatremia-increase gatorade as directed 05/20/2014 Patient Education: Patient Medication Summary Completed 05/20/2014 Appointment: Ale Carlos WPtel: [phone] [place] Injection 03/26/2014 Patient Education: Patient Medication [...] Merlos. 03/25/2014 Appointment: Ale Carlos WPtel: [phone] Follow up 03/25/2014 Patient Education: Patient Medication Summary Completed 03/25/2014 Patient Education: Hypertension Completed 03/25/2014 Visit Plan: Rhucu-zvnimehai-jdlcdqv laryngeal reflux-RX for protonix (patient is on [...] at home. 12/24/2013 Appointment: Ale Carlos WPtel: [address] [place], [place] [address] Follow up 12/24/2013 Patient Education: Patient Medication [...] portion size. 11/20/2013 Appointment: Ale Carlos WPtel: [address] [place], [place] [phone] Follow up 11/20/2013 Patient Education: Patient Medication Summary Completed 11/20/2013 Appointment: Ale Carlos WPtel: [address] [place], [place] [phone] Follow up 11/06/2013 Visit Plan: Weight loss-increase portions-add snacks in the morning and afternoon-follow up in 3 weeks for weight check Low sodium- check labs-restart gatorade Slsmcth-oyfpgm-htykf labs and UA 10/30/2013 Patient Education: Patient Medication Summary Completed 10/30/2013 Appointment: Ale Carlos WPtel: [address] [place], [place] [phone] Follow up 10/16/2013 Visit Plan: Sinusitis - [...] Dr. Merlos. 06/18/2013 Appointment: Ale Carlos [facility]Ptel: [phone] Follow up 06/18/2013 Patient Education: Patient Medication [...] acute concerns. 04/04/2013 Appointment: Ale Carlos [facility]Ptel: [phone] Follow up 04/04/2013 Patient Education: Patient Medication [...] report. 02/19/2013 Appointment: Ale Carlos WPtel: [phone] [facility] Follow up 02/19/2013 Patient Education: Patient [...] loss. 10/16/2012 Appointment: Ale Carlos WPtel: [phone] [facility] Follow up 10/16/2012 Patient Education: Patient [...] return. 06/19/2012 Appointment: Ale Carlos [facility]Ptel: [phone] Follow up 06/19/2012 Patient Education: Patient Medication [...] bentyl. 03/20/2012 Appointment: Ale Carlos WPtel: [phone] [facility] Follow up 03/20/2012 Patient Education: Patient Medication Summary Completed 03/20/2012 Patient Education: High Blood Pressure: Essential Hypertension Completed 2011 Appointment: Ale Carlos WPtel: [phone] [facility] Follow up 02/22/2012 Visit Plan: Hypertension - [...] as needed. 01/24/2012 Appointment: Ale Carlos WPtel: [address] [place], [place] [phone] [place] Follow up 01/24/2012 Patient Education: Patient Medication [...] have the biopsy until okayed by his career manager.. I anticipate it will be at least 4-6 months before he can be off of the plavix and aspirin for additonal procedures unless it is of extreme urgency. 12/20/2011 Appointment: Ale Carlos WPtel: [address] [place], [place] [address] [place] Follow up 12/20/2011 Patient Education: Patient Medication Summary Completed 12/20/2011 Patient Education: High Blood Pressure: Essential Hypertension Completed 2011 Appointment: Ale Carlos WPtel: [address] [place], [place] [address] [place] Other 12/13/2011 Visit Plan: Pain in groin post heart cath with increased discomfort and increased size - will order an ultrasound for today. 12/09/2011 Appointment: Ale Carlos WPtel: [address] [place], [place] [address] Other 12/09/2011 Patient Education: Patient Medication Summary [...] either medication. 08/25/2011 Appointment: Ale Carlos WPtel: [address] [place], [place] [phone] Other 08/25/2011 Patient Education: Patient Medication Summary [...] low doses. 06/23/2011 Appointment: Ale Carlos WPtel: [address] [place], [place] [phone] [place] Other 06/23/2011 Patient Education: Patient Medication Summary Completed 06/23/2011 Patient Education: High Blood Pressure: Essential Hypertension Completed 2011 Appointment: Ale Carlos WPtel: [address] [place], [place] [phone] Other 04/26/2011 Visit Plan: Hypertension - well [...] seeds, etc. 04/19/2011 Appointment: Ale Carlos WPtel: [address] [place] [address] Other 04/19/2011 Patient Education: Patient Medication Summary Completed 04/19/2011 Patient Education: High Blood Pressure: Essential Hypertension Completed 2010 Patient Education: Diverticulosis Diet Completed 04/19/2011 Appointment: Nelly Keen WPtel: [address] [place] [address] Other 03/23/2011 Patient Education: Patient Medication Summary Completed 03/23/2011 Patient Education: High Blood Pressure: Essential Hypertension Completed 2010 Visit Plan: Record blood pressure and heart rate at home and drop the readings by the office in two weeks. No change in medications today. Laceration - removed suture today - pt to call if any complications arise. 03/08/2011 Appointment: Ale Carlos WPtel: [address] [place] [address] Other 03/08/2011 Patient Education: Patient Medication Summary [...] day. 03/01/2011 Appointment: Ale Carlos WPtel: [phone] [facility] [place] Other 03/01/2011 Patient Education: Patient Medication Summary Completed 03/01/2011 Patient Education: High Blood Pressure: Essential Hypertension Completed 2010 Appointment: Nelly Keen WPtel: [phone] [place] Injection 02/25/2011 Patient Education: Patient Medication Summary Completed 02/25/2011 Appointment: Ale [facility]Ptel[phone] [place] Injection 02/16/2011 Patient Education: Patient Medication Summary Completed 02/16/2011 Appointment: Ale Carlos [facility]Ptel: [phone] [place] Injection 02/09/2011 Patient Education: Patient Medication Summary Completed 02/09/2011 Appointment: Ale Carlos WPtel: [facility]5 [facility] [place] Follow up 02/02/2011 Visit Plan: Hydrocele and [...] with his son - Kenji Dash in [place]. Upon our conversation hsaf-quo-oxszq, Kenji vocalized concerns for his Dad's memory. He stated that he has noticed his father not being as quick in his cognitive functioning, he has noticed some concerns with driving as well. He states that he will discuss these concerns with his parents and other siblings. 02/01/2011 Appointment: Ale Carlos WPtel: [facility]5 [facility]66[facility] [[email or web address] Other 02/01/2011 Patient Education: Patient Medication Summary [...] as needed. 01/27/2011 Appointment: Ale Carlos WPtel: [address] [place] [address] [place] New Patient 01/27/2011 Patient Education: Patient Medication Summary Completed 01/27/2011 Visit Plan: Bruising/hematoma left arm-discussed natural and expected course of this diagnosis and to alert me if symptoms do not follow expected course or if any worse, Continue with ice/heat as needed for discomfort. Call for any concerns. 01/26/2011 Appointment: Nelly Keen WPtel: [address] [place], [place] [phone] [place] [address] Other 01/26/2011 Patient Education: Patient Medication Summary [...] full course. 01/15/2011 Appointment: Nelly Keen WPtel: [phone] Other 01/15/2011 Patient Education: Patient Medication Summary [...] diet. 01/06/2011 Appointment: Ale Carlos WPtel: [phone] New Patient 01/06/2011 Patient Education: Patient Medication Summary Completed 01/06/2011 Instructions Comment . Pneumonia - Pt has been diagnosed with pneumonia by physical exam. A chest xray has been ordered as have antibiotics. The pt is aware of the diagnosis and the need for acute treatment of this illness. Wmghpbmyt-jqkyv-gjpdtyz flonase nasal spray Hyponatremia-increase gatorade as directed ADDENDUM: RECOMMEND PATIENT START ON ALBUTEROL NEBULIZER TREATMENTS EVERY 4 HOURS NEEDED FOR SHORTNESS OF BREATH/WHEEZING. DX SECONDARY PNEUMONIA FROM INFLUENZA, COUGH INCREASE GATORADE TO THREE TIMES PER DAY X 2 DAYS THEN TWICE DAILY stop doxycycline START CEFDINIR AND ZITHROMAX . Pneumonia - Pt has been diagnosed with pneumonia by physical exam. A chest xray has been ordered as have antibiotics. The pt is aware of the diagnosis and the need for acute treatment of this illness. Stnyocbft-kxmob-bdumuij flonase nasal spray Hyponatremia-increase gatorade as directed Increase your lorazepam to 1/2 tablet 3 [...] take lorazepam every 8 hours as needed. . Hypertension - well controlled at home [...] be evaluated and call pt with report. INCREASE YOUR MELOXICAM (MOBIC) TO 1/2 PILL TWICE DAILY X 5 DAYS CALL IF YOUR ELBOWS SWELLS AGAIN OR YOU DEVELOP PAIN OR OTHER CONCERNS . Bursitis-right elbow-drained today in the office-increase anti inflammatories for the next 5 days as directed-call if symptoms do not resolve, swelling returns or new symptoms develop-patient verbalized understanding of plan. . Bruising/hematoma left arm-discussed natural and expected course of this diagnosis and to alert me if symptoms do not follow expected course or if any worse, Continue with ice/heat as needed for discomfort. Call for any concerns. . Hypertension - well controlled - continue [...] improvement of his anxiety and memory loss. Nasal spray- use twice daily, one spray [...] in the nasal steroid allergy spray. . Joint effusion - recommended drainage and referral to orthopedic surgeon for surgical debridement of bursa CHECK LABS-CBC, CMP, UA WITH C&S IF INDICATED . Weight loss-increase portions-add snacks in the morning and afternoon-follow up in 3 weeks for weight check Low sodium-check labs-restart gatorade Tactvdn-aapwhc-bhkzq labs and UA . Hypertension and Coronary artery disease- recommended [...] have the biopsy until okayed by his career manager.. I anticipate it will be at least 4-6 months before he can be off of the plavix and aspirin for additonal procedures unless it is of extreme urgency. stop the cefuroxime - start on azithromycin [...] thyroid and cbc prevnar 13 injection today I sent a prescription of generic zyrtec to [facility] - if it is expensive get the [...] up to two times a day. . Abdominal pain - nausea - Pt to have IV fluids at hospital . Hypertension - well controlled - continue [...] situational exposure. No change in current medications. Dr. Carlos talked to Dr. Merlos today [...] for the bottom number flu shot . Pain in groin post heart cath with increased discomfort and increased size - will order an ultrasound for today. . Allergies - recommended pt to use [...] change in blood pressure readings at home. Blood pressure check today in the office-improving. on the Requip - decrease the dose [...] labs to be done from [facility] call the office in 2 weeks [...] twice HTN-well controlled-no change in treatment . Wifgq-jlxgmyqlw-kqgtaik laryngeal reflux-RX for protonix (patient is on [...] 3 days of the lactose free diet. get Aspercreme from [facility] for your upper neck/upper back. lactaid pills - take before you drink milk or eat cheese or ice cream or yogurt use gas-ex one pill three times daily . Neck and upper back pain and gait unsteadiness - referral to [facility] for upper and low back pain and left arm pain and have gait eval. get Aspercreme from [facility] for your upper neck/upper back. Abdominal upset/cramping - lactaid pills - take before you drink milk or eat cheese or ice cream or yogurt use gas-ex one pill three times daily Chronic anxiety - stable - continue with current management. INCREASE ARICEPT (DONEPEZIL) TO 5MG TAKEN TWICE [...] TO HOSPITAL IN THE EVENING OF 01/15/11 Appointment [place] [address] Carlos. [...] with his son - Kenji Dash in [place]. Upon our conversation [id number], Kenji vocalized concerns for his Dad's memory. [...] THAT HE SHOULD NOT BE DRIVING TO [place] Pt is to try 1/2 pill of [...] in blood pressure readings at home. Urinary remfwqdbj-GIJ-yadwwp flomax to bedtime Dizziness-stop hydrocodone and ativan [...]
[2017-06-25 04:44] LABS: BASOPHILS % (AUTO) 0 % (0-10); EOSINOPHILS % (AUTO) 1 % (0-10); HEMATOCRIT 38 % (40-54); HEMOGLOBIN 13.5 G/DL (13.3-17.7); LYMPHOCYTES % (AUTO) 21 % (12-44); MEAN CORPUSCULAR HEMOGLOBIN 33 PG (25-34); MEAN CORPUSCULAR HGB CONC 36 G/DL (32-36); MEAN CORPUSCULAR VOLUME 91 FL (80-99); MONOCYTES # (AUTO) 0.7 X 10^3 (0.0-1.0); MONOCYTES % (AUTO) 14 % (0-12); NEUTROPHILS % (AUTO) 64 % (42-75); PLATELET COUNT 170 10^3/uL (130-400); RED BLOOD COUNT 4.15 10^6/uL (4.35-5.85); RED CELL DISTRIBUTION WIDTH 13.9 % (10.0-14.5); WHITE BLOOD COUNT 4.7 10^3/uL (4.3-11.0)
--- OUTSIDE RECORDS SUMMARY | 2017-06-25 04:44 | XMS REPORT | Continuity of Care Document ---
Author Author [facility] Address Unknown Phone Unavailable Allergies Active Description Code Type Severity Reaction Onset Reported/Identified Relationship to Patient Clinical Status Yes butorphanol [id number] Drug Allergy Unknown N/A 11/28/2011 Yes ketorolac [id number] Drug Allergy Mild STATES CAUSES M 11/28/2011 Yes Toradol Drug Allergy 03/28/2012 Yes Toradol Drug Allergy N/A N/A 03/28/2012 Medications There is no data. Problems Date Dx Coded Attending Type Code Diagnosis Diagnosed By 02/02/2008 ORACIO JACKSON DO 300.00 AN ANXIETY UNSPEC 02/02/2008 ORACIO JACKSON DO 307.47 SI DYSSOMNIA NOS 02/02/2008 300.00 AN ANXIETY UNSPEC 02/02/2008 307.47 SI DYSSOMNIA NOS 02/02/2008 300.00 AN ANXIETY UNSPEC 02/02/2008 307.47 SI DYSSOMNIA NOS 11/20/2010 Ot 272.4 HYPERLIPIDEMIA NEC/NOS 11/20/2010 Ot 300.00 ANXIETY STATE NOS 11/20/2010 Ot 401.9 HYPERTENSION NOS 11/20/2010 Ot 414.01 CORONARY ATHEROSCLEROSIS OF [place] CORON 11/20/2010 Ot 414.8 CHR ISCHEMIC HRT DIS NEC 11/20/2010 Ot 427.89 CARDIAC DYSRHYTHMIAS NEC 11/20/2010 Ot 433.10 CAROTID ARTERY OCCLUSION W O CEREBRAL IN 11/20/2010 Ot 477.9 ALLERGIC RHINITIS NOS 11/20/2010 Ot 600.90 HYPERPLASIA OF PROSTATE, UNSPEC, W/O URI 11/20/2010 Ot 601.1 CHRONIC PROSTATITIS 11/20/2010 Ot V12.54 PERSONAL HX OF TIA, CEREBRAL INFARCTION 11/20/2010 Ot V45.82 PERCUTANEOUS TRANSLUM CORON ANGIOPLASTY 12/26/2010 Ot 787.91 DIARRHEA 12/26/2010 Ot 789.09 ABDOMINAL PAIN, OTHER SPECIFIED SITE 01/13/2011 Ot 276.1 HYPOSMOLALITY 01/13/2011 Ot 780.79 OTH MALAISE FATIGUE 01/13/2011 Ot 789.00 ABDOMINAL PAIN, UNSPECIFIED SITE 01/13/2011 Ot 791.9 ABN URINE FINDINGS NEC 01/20/2011 Ot 294.8 OTH PERSISTENT MENTAL DIS DUE TO COND CL 01/20/2011 Ot 300.00 ANXIETY STATE NOS 01/20/2011 Ot 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 01/20/2011 Ot 401.9 HYPERTENSION NOS 01/20/2011 Ot 564.1 IRRITABLE BOWEL SYNDROME 01/20/2011 Ot 600.00 HYPERTROPHY (BENIGN) OF PROSTATE W/O URI 01/20/2011 Ot V12.54 PERSONAL HX OF TIA, CEREBRAL INFARCTION 01/20/2011 Ot V45.82 PERCUTANEOUS TRANSLUM CORON ANGIOPLASTY 01/25/2011 Ot 729.5 PAIN IN LIMB 01/25/2011 Ot 996.74 OTH COMPL DUE TO OT VASCULAR DEVICE,IMP 03/29/2011 Ot 787.02 NAUSEA ALONE 03/29/2011 Ot 787.99 OTHER GI SYSTEM SYMPTOMS 03/29/2011 Ot 789.00 ABDOMINAL PAIN, UNSPECIFIED SITE 12/01/2011 Ot 272.4 HYPERLIPIDEMIA NEC/NOS 12/01/2011 Ot 300.00 ANXIETY STATE NOS 12/01/2011 Ot 311 DEPRESSIVE DISORDER NEC 12/01/2011 Ot 331.83 MILD COGNITIVE IMPAIRMENT, SO STATED 12/01/2011 Ot 401.9 HYPERTENSION NOS 12/01/2011 Ot 414.01 CORONARY ATHEROSCLEROSIS OF [place] CORON 12/01/2011 Ot 564.00 UNSPEC CONSTIPATION 12/01/2011 Ot 600.00 HYPERTROPHY (BENIGN) OF PROSTATE W/O URI 12/01/2011 Ot V12.54 PERSONAL HX OF TIA, CEREBRAL INFARCTION 05/18/2014 DERICK GRIMES, YANETH Avila Ot 465.9 ACUTE URI NOS 05/18/2014 DERICK GRIMES, YANETH Avila Ot 786.05 SHORTNESS OF BREATH 06/08/2014 RAMA PAGAN Ot 786.2 06/17/2014 RAMA PAGAN Ot 786.2 08/31/2014 ZAYDA NAIR DO Ot 294.20 DEMENTIA, UNSPECIFIED, 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 08/31/2014 ZAYDA NAIR DO Ot 300.00 ANXIETY STATE NOS 08/31/2014 ZAYDA NAIR DO Ot 401.9 HYPERTENSION NOS 08/31/2014 ZAYDA NAIR DO Ot 790.99 BLOOD EXAM - OTH NONSPECIFIC FINDINGS 08/31/2014 ZAYDA NAIR DO Ot V12.54 PERSONAL HX OF TIA, CEREBRAL INFARCTION 08/31/2014 ZAYDA NAIR DO Ot V58.69 OTH MED,LT,CURRENT USE 10/02/2014 GEORGIE GRIMES, DAYDAY Valdez Ot 787.91 DIARRHEA 10/02/2014 GEORGIE GRIMES, DAYDAY Valdez Ot 789.00 ABDOMINAL PAIN, UNSPECIFIED SITE 10/09/2014 HUGO GRIMES, OLIVER Sutton Ot 530.10 ESOPHAGITIS NOS 10/09/2014 HUGO GRIMES, OLIVER Sutton Ot 535.40 OTH SPECIFIED GASTRITIS,W/O MENTION OF H 10/09/2014 HUGO GRIMES, OLIVER Sutton Ot 562.10 DIVERTICULOSIS COLON (W/O MENT OF HEMORR 10/09/2014 HUGO GRIMES, OLIVER Sutton Ot 787.99 OTHER GI SYSTEM SYMPTOMS 10/17/2014 RAMA PAGAN SODA TESTER Ot 789.00 10/29/2014 RAMA PAGAN SODA TESTER Ot 789.00 12/20/2014 IRISH GRIMES, HARPAL Valdez Ot 600.00 12/20/2014 IRISH GRIMES, HARPAL Valdez Ot V72.63 12/20/2014 IRISH GRIMES, HARPAL Valdez Ot V74.8 12/26/2014 IRISH GRIMES, HARPAL Valdez Ot 414.00 CORON ATHEROSCLER NOS TYPE VESSEL, NATIV 12/26/2014 IRISH GRIMES, HARPAL Valdez Ot 600.00 HYPERTROPHY (BENIGN) OF PROSTATE W/O URI 01/08/2015 IRISH GRIMES, HARPAL A Ot 600.00 01/08/2015 IRISH GRIMES, HARPAL Valdez Ot V72.63 01/08/2015 IRISH GRIMES, HARPAL Valdez Ot V74.8 01/16/2015 IRISH GRIMES, HARPAL A Ot 600.00 01/16/2015 IRISH GRIMES, HARPAL A Ot V72.63 01/16/2015 IRISH GRIMES, HARPAL Valdez Ot V74.8 01/26/2016 Ot 427.9 CARDIAC DYSRHYTHMIA NOS 01/26/2016 Ot 790.5 ABN SERUM ENZY LEVEL NEC 01/26/2016 Ot 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 01/26/2016 Ot 603.9 HYDROCELE NOS 01/26/2016 Ot 401.9 HYPERTENSION NOS 01/26/2016 Ot 414.01 CORONARY ATHEROSCLEROSIS OF [place] CORON 01/26/2016 Ot 443.9 PERIPH VASCULAR DIS NOS 01/26/2016 Ot 787.02 NAUSEA ALONE 01/26/2016 Ot 787.99 OTHER GI SYSTEM SYMPTOMS 01/26/2016 Ot 789.00 ABDOMINAL PAIN, UNSPECIFIED SITE 01/26/2016 Ot 414.00 CORON ATHEROSCLER NOS TYPE VESSEL, NATIV 01/26/2016 Ot 998.12 HEMATOMA COMPLIC A PROC 01/26/2016 COSENS DO, KAREEM L Ot 786.2 COUGH 01/26/2016 ANJALI GRIMES FACC, ALI FACP CCDS Ot 414.00 CORON ATHEROSCLER NOS TYPE VESSEL, NATIV 01/26/2016 ANJALI GRIMES FACC, ALI FACP CCDS Ot 427.89 CARDIAC DYSRHYTHMIAS NEC 01/26/2016 ANJALI GRIMES FACC, ALI FACP CCDS Ot 434.91 CEREBRAL ART OCCLUSION NOS W CEREBRAL IN 01/26/2016 ANJALI GRIMES FACC, ALI FACP CCDS Ot 440.9 ATHEROSCLEROSIS NOS 01/26/2016 RAMA PAGAN SODA TESTER Ot 786.2 COUGH 01/26/2016 RAMA PAGAN SODA TESTER Ot 789.00 ABDOMINAL PAIN, UNSPECIFIED SITE 01/26/2016 HUGO GRIMES, OLIVER Sutton Ot V72.84 EXAM PRE-OPERATIVE NOS 01/26/2016 IRISH GRIMES, HARPAL Valdez Ot 600.00 HYPERTROPHY (BENIGN) OF PROSTATE W/O URI 01/26/2016 HARPAL COBURN MD Ot V72.63 PRE-PROCEDURAL LABORATORY EXAMINATION 01/26/2016 HARPAL COBURN MD Ot V74.8 SCREEN-BACTERIAL DIS NEC 01/28/2016 DAYDAY JACQUES MD Ot E86.0 DEHYDRATION 02/18/2016 DAYDAY JACQUES MD Ot E86.0 DEHYDRATION 02/26/2016 DAYDAY JACQUES MD Ot E86.0 DEHYDRATION 03/24/2016 GALE MAY SODA TESTER Ot E78.4 OTHER HYPERLIPIDEMIA 03/24/2016 GALE MAY SODA TESTER Ot I25.10 ATHSCL HEART DISEASE OF [place] CORONARY 04/13/2016 GALE MAY SODA TESTER Ot E78.4 OTHER HYPERLIPIDEMIA 04/13/2016 MARGOGALE SANDERSON SODA TESTER Ot I25.10 ATHSCL HEART DISEASE OF [place] CORONARY 04/14/2016 ALYSA ARCHIBALD MD Ot E78.5 HYPERLIPIDEMIA, UNSPECIFIED 04/14/2016 ALYSA ARCHIBALD MD Ot F41.9 ANXIETY DISORDER, UNSPECIFIED 04/14/2016 ALYSA ARCHIBALD MD Ot I10 ESSENTIAL (PRIMARY) HYPERTENSION 04/14/2016 ALYSA ARCHIBALD MD Ot I25.10 ATHSCL HEART DISEASE OF [place] CORONARY 04/14/2016 ALYSA ARCHIBALD MD Ot 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 04/14/2016 ALYSA ARCHIBALD MD Ot K57.90 DVRTCLOS OF INTEST, PART UNSP, W/O PERF 04/14/2016 ALYSA ARCHIBALD MD Ot M19.90 UNSPECIFIED OSTEOARTHRITIS, UNSPECIFIED 04/14/2016 ALYSA ARCHIBALD MD Ot M70.21 OLECRANON BURSITIS, RIGHT ELBOW 04/14/2016 ALYSA ARCHIBALD MD Ot Z79.899 OTHER CUSTODIAL (CURRENT) DRUG THERAPY 04/14/2016 ALYSA ARCHIBALD MD Ot Z86.73 PRSNL HX OF TIA (TIA), AND CEREB INFRC W 04/15/2016 ALYSA ARCHIBALD MD Ot E78.5 HYPERLIPIDEMIA, UNSPECIFIED 04/15/2016 ALYSA ARCHIBALD MD, Ot F41.9 ANXIETY DISORDER, UNSPECIFIED 04/15/2016 ALYSA ARCHIBALD MD Ot I10 ESSENTIAL (PRIMARY) HYPERTENSION 04/15/2016 ALYSA ARCHIBALD MD Ot I25.10 ATHSCL HEART DISEASE OF [place] CORONARY 04/15/2016 ALYSA ARCHIBALD MD Ot 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 04/15/2016 ALYSA ARCHIBALD MD Ot K57.90 DVRTCLOS OF INTEST, PART UNSP, W/O PERF 04/15/2016 ALYSA ARCHIBALD MD Ot M19.90 UNSPECIFIED OSTEOARTHRITIS, UNSPECIFIED 04/15/2016 ALYSA ARCHIBALD MD Ot M70.21 OLECRANON BURSITIS, RIGHT ELBOW 04/15/2016 ALYSA ARCHIBALD MD Ot Z79.899 OTHER PATHOLOGIST (CURRENT) DRUG THERAPY 04/15/2016 DRAGAN GRIMES, ALYSA Bronson Ot Z86.73 PRSNL HX OF TIA (TIA), AND CEREB INFRC W 04/18/2016 DRAGAN GRIMES, ALYSA Bronson Ot M70.21 OLECRANON BURSITIS, RIGHT ELBOW 04/18/2016 DRAGAN GRIMES, ALYSA Brnoson Ot Z01.818 ENCOUNTER FOR OTHER PREPROCEDURAL EXAMIN 04/18/2016 DRAGAN GRIMES, ALYSA Bronson Ot Z11.2 ENCOUNTER FOR SCREENING FOR OTHER BACTER 04/21/2016 GALE MAY SODA TESTER Ot E78.4 OTHER HYPERLIPIDEMIA 04/21/2016 GALE MAY SODA TESTER Ot I25.10 ATHSCL HEART DISEASE OF [place] CORONARY 11/08/2016 LUCAS CALLES APRN Ot B30.9 VIRAL CONJUNCTIVITIS, UNSPECIFIED 11/08/2016 LUCAS CALLES APRN Ot E78.00 PURE HYPERCHOLESTEROLEMIA, UNSPECIFIED 11/08/2016 LUCAS CALLES APRN Ot F03.90 UNSPECIFIED DEMENTIA 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L 11/08/2016 LUCAS CALLES APRN Ot I10 ESSENTIAL (PRIMARY) HYPERTENSION 11/08/2016 LUCAS CALLES APRN Ot 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 11/08/2016 LUCAS CALLES APRN Ot M19.90 UNSPECIFIED OSTEOARTHRITIS, UNSPECIFIED 11/08/2016 LUCAS CALLES APRN Ot N40.1 BENIGN PROSTATIC HYPERPLASIA WITH LOWER 11/08/2016 LUCAS CALLES APRN Ot R09.81 NASAL CONGESTION 11/08/2016 LUCAS CALLES APRN Ot Z79.82 PATHOLOGIST (CURRENT) USE OF ASPIRIN 11/08/2016 LUCAS CALLES APRN Ot Z86.73 PRSNL HX OF TIA (TIA), AND CEREB INFRC W 11/08/2016 LUCAS CALLES APRN Ot Z95.5 PRESENCE OF CORONARY ANGIOPLASTY IMPLANT 11/10/2016 LUCAS CALLES APRN Ot B30.9 VIRAL CONJUNCTIVITIS, UNSPECIFIED 11/10/2016 LUCAS CALLES APRN Ot E78.00 PURE HYPERCHOLESTEROLEMIA, UNSPECIFIED 11/10/2016 LUCAS CALLES APRN Ot I10 ESSENTIAL (PRIMARY) HYPERTENSION 11/10/2016 LUCAS CALLES APRN Ot 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 11/10/2016 LUCAS CALLES BATTERY INSPECTOR Ot M19.90 UNSPECIFIED OSTEOARTHRITIS, UNSPECIFIED 11/10/2016 LUCAS CALLES BATTERY INSPECTOR Ot N40.1 BENIGN PROSTATIC HYPERPLASIA WITH LOWER 11/10/2016 LUCAS CALLES BATTERY INSPECTOR Ot R09.81 NASAL CONGESTION 11/10/2016 LUCAS CALLES APRN Ot Z79.82 CUSTODIAL (CURRENT) USE OF ASPIRIN 11/10/2016 LUCAS CALLES APRN Ot Z86.73 PRSNL HX OF TIA (TIA), AND CEREB INFRC W 11/10/2016 LUCAS CALLES APRN Ot Z95.5 PRESENCE OF CORONARY ANGIOPLASTY IMPLANT 11/12/2016 NATALYA MORAN BATTERY INSPECTOR Ot R05 COUGH 12/03/2016 NATALYA MORAN BATTERY INSPECTOR Ot R05 COUGH 12/10/2016 NATALYA MORAN BATTERY INSPECTOR Ot R05 COUGH 12/31/2016 GEORGIE GRIMES, DAYDAY Valdez Ot R09.82 POSTNASAL DRIP 12/31/2016 DAYDAY JACQUES MD Ot R93.8 ABNORMAL FINDINGS ON DIAGNOSTIC IMAGING 01/03/2017 DAYDAY JACQUES MD Ot R09.82 POSTNASAL DRIP 01/03/2017 DAYDAY JACQUES MD Ot R93.8 ABNORMAL FINDINGS ON DIAGNOSTIC IMAGING 03/09/2017 SEJAL WILSON MD Ot E78.00 PURE HYPERCHOLESTEROLEMIA, UNSPECIFIED 03/09/2017 SEJAL WILSON MD Ot F03.90 UNSPECIFIED DEMENTIA 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L 03/09/2017 SEJAL WILSON MD Ot I10 ESSENTIAL (PRIMARY) HYPERTENSION 03/09/2017 SEJAL WILSON MD Ot I25.10 ATHSCL HEART DISEASE OF [place] CORONARY 03/09/2017 SEJAL WILSON MD Ot M19.90 UNSPECIFIED OSTEOARTHRITIS, UNSPECIFIED 03/09/2017 SEJAL WILSON MD Ot N40.0 BENIGN PROSTATIC HYPERPLASIA WITHOUT LOW 03/09/2017 SEJAL WILSON MD Ot S01.512A LACERATION WITHOUT FOREIGN BODY OF ORAL 03/09/2017 SEJAL WILSON MD Ot X58.XXXA EXPOSURE TO OTHER SPECIFIED FACTORS, INI 03/09/2017 SEJAL WILSON MD Ot Z23 ENCOUNTER FOR IMMUNIZATION 03/09/2017 SEJAL WILSON MD Ot Z79.02 PATHOLOGIST (CURRENT) USE OF ANTITHROMBOTI 03/09/2017 SEJAL WILSON MD Ot Z79.82 PATHOLOGIST (CURRENT) USE OF ASPIRIN 03/09/2017 SEJAL WILSON MD Ot Z90.89 ACQUIRED ABSENCE OF OTHER ORGANS 03/09/2017 SEJAL WILSON MD Ot Z95.5 PRESENCE OF CORONARY ANGIOPLASTY IMPLANT 03/15/2017 SEJAL WILSON MD Ot E78.00 PURE HYPERCHOLESTEROLEMIA, UNSPECIFIED 03/15/2017 SEJAL WILSON MD Ot F03.90 UNSPECIFIED DEMENTIA 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L 03/15/2017 SEJAL WILSON MD Ot I10 ESSENTIAL (PRIMARY) HYPERTENSION 03/15/2017 SJEAL WILSON MD Ot I25.10 ATHSCL HEART DISEASE OF [place] CORONARY 03/15/2017 SEJAL WILSON MD Ot M19.90 UNSPECIFIED OSTEOARTHRITIS, UNSPECIFIED 03/15/2017 SEJAL WILSON MD Ot N40.0 BENIGN PROSTATIC HYPERPLASIA WITHOUT LOW 03/15/2017 SEJAL WILSON MD Ot S01.512A LACERATION WITHOUT FOREIGN BODY OF ORAL 03/15/2017 SEJAL WILSON MD Ot X58.XXXA EXPOSURE TO OTHER SPECIFIED FACTORS, INI 03/15/2017 SEJAL WILSON MD Ot Z79.02 PATHOLOGIST (CURRENT) USE OF ANTITHROMBOTI 03/15/2017 SEJAL WILSON MD Ot Z79.82 CUSTODIAL (CURRENT) USE OF ASPIRIN 03/15/2017 SEJAL WILSON MD Ot Z90.89 ACQUIRED ABSENCE OF OTHER ORGANS 03/15/2017 SEJAL WILSON MD Ot Z95.5 PRESENCE OF CORONARY ANGIOPLASTY IMPLANT 03/25/2017 ANJALI GRIMES FACC, WILNER FACP CCDS Ot E78.4 OTHER HYPERLIPIDEMIA 03/25/2017 ANJALI GRIMES FACC, ALI FACP CCDS Ot I25.10 ATHSCL HEART DISEASE OF [place] CORONARY 03/25/2017 ANJALI GRIMES FACC, ALI FACP CCDS Ot 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 03/25/2017 ANJALI GRIMES FACC, ALI FACP CCDS Ot R00.1 BRADYCARDIA, UNSPECIFIED 03/25/2017 ANJALI GRIMES FACC, ALI FACP CCDS Ot Z86.79 PERSONAL HISTORY OF OTHER DISEASES OF TH 04/01/2017 ANJALI GRIMES FACC, WILNER FACP CCDS Ot E78.4 OTHER HYPERLIPIDEMIA 04/01/2017 ANJALI GRIMES FACC, WILNER [facility] CCDS Ot I25.10 ATHSCL HEART DISEASE OF [place] CORONARY 04/01/2017 ANJALI GRIMES FACC, WILNER [facility] CCDS Ot 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 04/01/2017 ANJALI GRIMES FACC, WILNER [facility] CCDS Ot R00.1 BRADYCARDIA, UNSPECIFIED 04/01/2017 ANJALI GRIMES FACC, WILNER [facility] CCDS Ot Z86.79 PERSONAL HISTORY OF OTHER DISEASES OF 06/07/2017 HARPAL COBURN MD Ot C61 MALIGNANT NEOPLASM OF PROSTATE 06/10/2017 HARPAL COBURN MD, Ot C61 MALIGNANT NEOPLASM OF PROSTATE Procedures Code Description Performed By Performed On 00.40 11/30/2011 00.45 11/30/2011 00.66 11/30/2011 36.07 11/30/2011 37.22 11/30/2011 88.53 11/30/2011 88.56 11/30/2011 43615 PSYCH PHARM MGMT 03/29/2012 Results Test Result Range Comprehensive metabolic panel - 01/26/16 14:55 Serum or plasma sodium measurement (moles/volume) 123 mmol/L 135-145 Serum or plasma potassium measurement (moles/volume) 4.4 mmol/L 3.6-5.0 Serum or plasma chloride measurement (moles/volume) 96 mmol/L 98-107 Carbon dioxide 20 mmol/L 21-32 Serum or plasma anion gap determination (moles/volume) 7 mmol/L 5-14 Serum or plasma urea nitrogen measurement (mass/volume) 16 mg/dL 7-18 Serum or plasma creatinine measurement (mass/volume) 0.90 mg/dL 0.60-1.30 Serum or plasma urea nitrogen/creatinine mass ratio 18 NRG Serum or plasma creatinine measurement with calculation of estimated glomerular filtration rate > NRG Serum or plasma glucose measurement (mass/volume) 128 mg/dL 70-105 Serum or plasma calcium measurement (mass/volume) 8.8 mg/dL 8.5-10.1 Serum or plasma total bilirubin measurement (mass/volume) 0.3 mg/dL 0.1-1.0 Serum or plasma alkaline phosphatase measurement (enzymatic activity/volume) 73 U/L 40-136 Serum or plasma aspartate aminotransferase measurement (enzymatic activity/ volume) 21 U/L 5-34 Serum or plasma alanine aminotransferase measurement (enzymatic activity/volume ) 20 U/L 0-55 Serum or plasma protein measurement (mass/volume) 6.0 g/dL 6.4-8.2 Serum or plasma albumin measurement (mass/volume) 3.9 g/dL 3.2-4.5 Methicillin resistant Staphylococcus aureus (MRSA) screening culture - 10:40 Methicillin resistant Staphylococcus aureus (MRSA) screening culture NEG NRG Complete blood count (CBC) with automated white blood cell (WBC) differential - 11/08/16 11:00 Blood leukocytes automated count (number/volume) 8.2 10*3/uL 4.3-11.0 Blood erythrocytes automated count (number/volume) 3.93 10*6/uL 4.35-5.85 Venous blood hemoglobin measurement (mass/volume) 12.4 g/dL 13.3-17.7 Blood hematocrit (volume fraction) 37 % 40-54 Automated erythrocyte mean corpuscular volume 93 [foz_us] 80-99 Automated erythrocyte mean corpuscular hemoglobin (mass per erythrocyte) 32 pg 25-34 Automated erythrocyte mean corpuscular hemoglobin concentration measurement ( mass/volume) 34 g/dL 32-36 Automated erythrocyte distribution width ratio 14.5 % 10.0-14.5 Automated blood platelet count (count/volume) 164 10*3/uL 130-400 Automated blood platelet mean volume measurement 10.0 [foz_us] 7.4-10.4 Automated blood neutrophils/100 leukocytes 77 % 42-75 Automated blood lymphocytes/100 leukocytes 5 % 12-44 Blood monocytes/100 leukocytes 18 % 0-12 Automated blood eosinophils/100 leukocytes 0 % 0-10 Automated blood basophils/100 leukocytes 0 % 0-10 Blood neutrophils automated count (number/volume) 6.3 10*3 1.8-7.8 Blood lymphocytes automated count (number/volume) 0.4 10*3 1.0-4.0 Blood monocytes automated count (number/volume) 1.5 10*3 0.0-1.0 Automated eosinophil count 0.0 10*3/uL 0.0-0.3 Automated blood basophil count (count/volume) 0.0 10*3/uL 0.0-0.1 Whole blood basic metabolic panel - 11/08/16 11:00 Serum or plasma sodium measurement (moles/volume) 128 mmol/L 135-145 Serum or plasma potassium measurement (moles/volume) 4.4 mmol/L 3.6-5.0 Serum or plasma chloride measurement (moles/volume) 95 mmol/L 98-107 Carbon dioxide 22 mmol/L 21-32 Serum or plasma anion gap determination (moles/volume) 11 mmol/L 5-14 Serum or plasma urea nitrogen measurement (mass/volume) 16 mg/dL 7-18 Serum or plasma creatinine measurement (mass/volume) 0.90 mg/dL 0.60-1.30 Serum or plasma urea nitrogen/creatinine mass ratio 18 NRG Serum or plasma creatinine measurement with calculation of estimated glomerular filtration rate > NRG Serum or plasma glucose measurement (mass/volume) 130 mg/dL 70-105 Serum or plasma calcium measurement (mass/volume) 8.7 mg/dL 8.5-10.1 Serum or plasma C reactive protein measurement (mass/volume) - 11/08/16 11:00 Serum or plasma C reactive protein measurement (mass/volume) 10.25 mg/dL 0.00-0.50 Blood manual differential performed detection - 11/08/16 11:00 Blood monocytes/100 leukocytes 12 % NRG Manual blood segmented neutrophils/100 leukocytes 82 % NRG Manual blood lymphocytes/100 leukocytes 6 % NRG Blood erythrocyte morphology finding identification NORMAL NRG Blood rouleaux detection by light microscopy SLIGHT NRG Erythrocyte sedimentation rate by westergren method - 11/08/16 11:00 Erythrocyte sedimentation rate by westergren method 16 mm 0-30 [id number] - 05/12/17 13:06 Serum or plasma urea nitrogen measurement (mass/volume) 18 mg/dL 7-18 Serum or plasma creatinine measurement (mass/volume) 1.04 mg/dL 0.60-1.30 Serum or plasma urea nitrogen/creatinine mass ratio 17 NRG Serum or plasma creatinine measurement with calculation of estimated glomerular filtration rate > NRG Encounters ACCT No. Visit Date/Time Discharge Status Pt. Type Provider Facility Loc./Unit Complaint [id number] 06/28/2011 13:11:00 06/28/2011 23:59:59 [facility] Outpatient MANUEL MEDEIROS ORACIO F [id number] 10/25/2012 14:58:00 Document Registration [id number] 03/28/2012 14:47:00 Document Registration [id number] 05/12/2017 11:53:00 05/12/2017 23:59:59 CLS Outpatient HARPAL COBURN MD [facility] RAD PROSTATE CANCER [id number] 03/09/2017 19:36:00 03/09/2017 23:59:59 CLS Emergency SEJAL WILSON MD [facility] ER TONGUE BLEEDING [id number] 03/03/2017 10:37:00 03/03/2017 23:59:59 CLS Outpatient ANJALI GRIMES FACCWILNER FACP CCDS [facility] CARD CAD [id number] 12/01/2016 15:48:00 12/01/2016 23:59:59 CLS Outpatient DAYDAY JACQUES MD [facility] RAD SINUS CONGESTION, ETHMOID SINUS INFLAMMATION [id number] 11/11/2016 14:51:00 11/11/2016 23:59:59 CLS Outpatient NATALYA MORAN BATTERY INSPECTOR [facility] RAD COUGH [id number] 11/08/2016 10:44:00 11/08/2016 12:36:00 DIS Emergency LUCAS CALLES BATTERY INSPECTOR [facility] ER BLURRED VISION/CONGESTION [id number] 04/14/2016 06:55:00 04/14/2016 13:15:00 DIS Outpatient ALYSA ARCHIBALD MD [facility] RIGHT ELBOW BURSITIS [id number] 04/12/2016 10:07:00 04/12/2016 10:35:00 DIS Outpatient ALYSA ARCHIBALD MD [facility] PREOP RIGHT ELBOW BURSITIS [id number] 03/23/2016 07:31:00 03/23/2016 23:59:59 CLS Outpatient GALE MAY [facility] CARD CAD,HYPERLIPIDEMIA [id number] 01/26/2016 14:36:00 01/26/2016 23:59:59 CLS Outpatient DAYDAY JACQUES MD [facility] DEHYDRATION [id number] 12/24/2014 06:27:00 12/26/2014 16:08:00 DIS Outpatient HARPAL COBURN MD [facility] BPH [id number] 12/19/2014 12:47:00 12/19/2014 23:59:59 CLS Outpatient HARPAL COBURN MD [facility] PREOP BPH [id number] 10/09/2014 13:53:00 10/09/2014 16:23:00 DIS Outpatient OLIVER ARIAS MD [facility] ABD. PAIN; CHANGE IN BOWEL HABITS [id number] 10/03/2014 05:50:00 10/03/2014 23:59:59 CLS Outpatient OLIVER ARIAS MD [facility] PREOP ABD. PAIN; CHANGE IN BOWEL HABITS [id number] 10/02/2014 13:11:00 10/02/2014 20:10:00 DIS Outpatient DAYDAY JACQUES MD [facility] SURG RCR ABD PAIN [id number] 09/25/2014 08:00:00 09/25/2014 23:59:59 CLS Outpatient RAMA PAGAN [facility] RAD ABDOMINAL PAIN [id number] 08/31/2014 16:41:00 08/31/2014 20:26:00 DIS Emergency ZAYDA NAIR DO K [facility] ER HIGH BP [id number] 05/21/2014 13:39:00 05/21/2014 23:59:59 CLS Outpatient RAMA PAGAN [facility] RAD COUGH [id number] 05/18/2014 19:14:00 05/18/2014 21:07:00 DIS Emergency YANETH SEPULVEDA MD [facility] ER SOA [id number] 02/11/2014 11:55:00 02/11/2014 23:59:59 CLS Outpatient ANJALI GRIMES FACC, WILNER HOLT CCDS [facility] CARD BRADYCARDIA, [id number] 10/13/2013 17:17:00 10/13/2013 23:59:59 CLS Outpatient KAREEM CISNEROS DO [facility] LAB COUGH [id number] 01/26/2016 14:36:00 Document Registration [id number] 12/09/2011 13:38:00 Document Registration [id number] 11/29/2011 11:26:00 Document Registration [id number] 2011 07:24:00 Document Registration [id number] 03/30/2011 00:00:00 Document Registration [id number] 02/18/2011 13:52:00 Document Registration [id number] 01/29/2011 13:47:00 Document Registration [id number] 01/24/2011 22:29:00 Document Registration [id number] 01/15/2011 17:14:00 Document Registration [id number] 01/13/2011 13:36:00 Document Registration [id number] 01/12/2011 07:38:00 Document Registration [id number] 12/31/2010 09:17:00 Document Registration [id number] 12/26/2010 20:32:00 Document Registration [id number] 11/18/2010 12:35:00 Document Registration [id number] 10/29/2010 13:56:00 Document Registration
[2017-06-25 04:55] LABS: BILIRUBIN,URINE NEGATIVE (NEGATIVE); CLARITY,URINE CLEAR; COLOR,URINE YELLOW; GLUCOSE, URINE (UA) NEGATIVE (NEGATIVE); KETONES,URINE NEGATIVE (NEGATIVE); LEUKOCYTE ESTERASE ,URINE NEGATIVE (NEGATIVE); NITRITE,URINE NEGATIVE (NEGATIVE); PH,URINE 7 (5-9); PROTEIN,URINE NEGATIVE (NEGATIVE); UROBILINOGEN,URINE NORMAL (NORMAL)
[2017-06-25 05:06] LABS: BACTERIA,URINE NEGATIVE /HPF; RBC,URINE 0-2 /HPF; SQUAMOUS EPITHELIAL CELL,UR RARE /HPF
[2017-06-25 05:17] LABS: ALANINE AMINOTRANSFERASE 22 U/L (0-55); ALBUMIN 3.8 GM/DL (3.2-4.5); ALKALINE PHOSPHATASE 75 U/L (40-136); AMYLASE 82 U/L (25-125); BILIRUBIN,TOTAL 0.6 MG/DL (0.1-1.0); BUN/CREATININE RATIO 18; CARBON DIOXIDE 23 MMOL/L (21-32); CHLORIDE 97 MMOL/L (98-107); CREATININE SERUM 0.88 MG/DL (0.60-1.30); GFR ESTIMATED > 60; GLUCOSE 92 MG/DL (70-105); LIPASE 36 U/L (8-78); POTASSIUM 4.2 MMOL/L (3.6-5.0); SODIUM 131 MMOL/L (135-145); TOTAL PROTEIN 5.5 GM/DL (6.4-8.2)
[2017-06-25] MEDS ORDERED: IOHEXOL 350 MG/ML 150 ML (OMNIPAQUE 350) VIAL IV ONE (06:30)
[2017-06-25] MEDS ORDERED: NS 250 ML (IVPB) BAG IV ONE (06:30)
--- NOTE | 2017-06-25 07:11 | Diagnostic Imaging Report ---
INDICATION: New onset of pain within the left shoulder, neck, abdomen, chest, and scrotum. TECHNIQUE: Contiguous axial images were obtained through the chest during the intravenous demonstration of contrast. Additional delayed images were obtained through the abdomen and pelvis. MIP reconstructions were created and evaluated. COMPARISON: CT of abdomen and pelvis 05/12/2017. DISCUSSION: Chest: Normal heart size. No pulmonary embolus identified. No focal consolidation or suspicious pulmonary nodule. No pleural or pericardial fluid. No pathologically enlarged lymph nodes identified. Atherosclerotic plaque is noted within the thoracic aorta. The aorta is otherwise normal in caliber and configuration. No aneurysm or dissection is identified. Pulmonary arteries are not dilated. No acute osseous abnormality. Abdomen/pelvis: The liver, gallbladder, pancreas, stomach, spleen, and adrenal glands are unremarkable. 1 cm left renal cyst is noted. No hydronephrosis or renal stone. Constipation is present. No abnormal small bowel loops identified. Bladder diverticulum is noted along the dome. Prostate is mildly enlarged. There is an enhancing 1.6 cm lesion within the prostate which is indeterminate. No ascites or pathologically enlarged lymph nodes identified. Scattered atherosclerotic plaques noted throughout the aorta and its divisions. The aorta is normal in caliber. Degenerative disease is present within the spine. IMPRESSION: 1. No acute pulmonary embolus or other arterial injury is identified. No aneurysm. 2. Enhancing lesion within the prostate appears increased in size from the previous exam and is indeterminate. 3. Constipation. 4. Agree with preliminary report. Dictated by: Dictated on workstation # [id number]
[2017-06-25 08:07] VITALS: BP 146/83
== END 2017-06-25 08:07 | disposition home or self-care (01) ==
LOC: EDUNIT# 04:07 → ER 04:09
DX: K59.00 Constipation, unspecified (principal); C61 Malignant neoplasm of prostate; N40.1 Benign prostatic hyperplasia with lower urinary tract symptoms; F03.90 Unspecified dementia, unspecified severity, without behavioral disturbance, psychotic disturbance, mood disturbance, and anxiety; I25.10 Atherosclerotic heart disease of native coronary artery without angina pectoris; E78.00 Pure hypercholesterolemia, unspecified; I10 Essential (primary) hypertension; K21.9 Gastro-esophageal reflux disease without esophagitis; Z90.79 Acquired absence of other genital organ(s); Z86.73 Personal history of transient ischemic attack (TIA), and cerebral infarction without residual deficits; Z90.89 Acquired absence of other organs; Z95.5 Presence of coronary angioplasty implant and graft; Z79.82 Long term (current) use of aspirin; Z87.19 Personal history of other diseases of the digestive system
CPT/HCPCS: 36415; 71275; 74177; 80053; 81000; 82150; 83690; 84484; 85025

== ENCOUNTER 2017-06-26 01:52 | Emergency (ER) | payer MEDICARE ==
[~2017-06-26] VITALS: Ht 177.8 cm; Wt 63.7 kg
--- NOTE | 2017-06-26 02:09 | ED GI ---
General Chief Complaint: Abdominal/GI Problems Stated Complaint: CONSTIPATION Source of Information: Patient (SOMEWHAT LIMITED HISTORIAN/ PT HAS DEMENTIA-- NO FAMILY ACCOMPANIES PT TO ER), EMS, Old Records History of Present Illness Date Seen by Provider: Jun 26, 2017 Time Seen by Provider: 02:00 Initial Comments PT ARRIVES VIA EMS FROM HOME--AMBULATES INTO ER ON HIS OWN, WITH EMS PT SEEN HERE LAST PM FOR GI COMPLAINTS--LAB AND CT AND XRAYS DONE--DX CONSTIPATION--SEE CHART FOR DETAILS PT WAS INSTRUCTED TO DO MIRALAX EVERY 4 HOURS UNTIL BM PT HAS USED MIRALAX X3 TODAY WITHOUT IMPROVEMENT STATES CHECKED HIM FOR IMPACTION AT 2100 TONIGHT AND DID NOT FIND ANY IMPACTION PT DENIES PAIN, STATES HE JUST FEELS A LITTLE FULL NO NAUSEA/VOMITING AND EATING WELL / NORMAL AMOUNTS / NORMAL FOOD ALL DAY TODAY ( PT HAD BEEN INSTRUCTED TO STAY ON CLEAR LIQUIDS UNTIL HE HAD A BM ) NO FEVER NO PROBLEMS URINATING. STATES HE WAS FINE ALL DAY AND WHEN HE WENT TO BED, JUST FELT A LITTLE FULLNESS IN UPPER ABDOMEN, THEN STATES "IT JOLTED ME AWAKE" PCP: DR. JACQUES Allergies and Home Medications Allergies Coded Allergies: butorphanol (Verified Allergy, Unknown, 11/28/11) ketorolac (Verified Adverse Reaction, Mild, STATES CAUSES MORE PAIN, ) Home Medications Amlodipine Besylate 10 Mg Tablet, 10 MG PO HS, (Reported) Aspirin 81 Mg Tablet.dr, 81 MG PO DAILY, (Reported) Cetirizine HCl 10 Mg Tablet, 10 MG PO DAILY, #30 Prescribed by: JONN REID on 04/14/16 0821 Cholecalciferol 1,000 Unit Tablet, 1,000 UNIT PO DAILY, (Reported) Citalopram Hydrobromide 10 Mg Tablet, 10 MG PO DAILY, (Reported) Clopidogrel Bisulfate 75 Mg Tablet, 75 MG PO DAILY, (Reported) Donepezil HCl 10 Mg Tablet, 10 MG PO HS, (Reported) Hydrocodone Bit/Acetaminophen 1 Each Tablet, 1-2 TAB PO Q4H PRN for PAIN, #40 MAY TAKE ONE OR TWO TABLETS BY MOUTH EVERY 4 HOURS NEEDED FOR PAIN. DO NOT EXCEED 3000 MG TYLENOL(ACETAMINOPHEN)IN A 24 HOUR PERIOD(NO MORE THAN 9 TABLETS IN 24 HOURS) Prescribed by: JONN REID on 04/14/16 1159 Lisinopril 20 Mg Tablet, 20 MG PO DAILY, (Reported) Melatonin/Pyridoxine 1 Each Tablet, 5 MG PO HS, (Reported) Meloxicam 15 Mg Tablet, 15 MG PO DAILY, (Reported) Memantine HCl 10 Mg Tablet, 10 MG PO BID, (Reported) Mirtazapine 15 Mg Tablet, 15 MG PO HS, (Reported) Multivitamins 1 Each Capsule, 1 EACH PO DAILY, (Reported) Pantoprazole Sodium 40 Mg Tablet.dr, 40 MG PO DAILY, (Reported) Ropinirole HCl 0.25 Mg Tab, 0.25 MG PO BID, #30 Prescribed by: JONN REID on 04/14/16 0805 Review of Systems Constitutional: no symptoms reported Respiratory: No Symptoms Reported Cardiovascular: No Symptoms Reported Gastrointestinal: See HPI, Constipated Genitourinary: No Symptoms Reported Musculoskeletal: no symptoms reported Skin: no symptoms reported Psychiatric/Neurological: See HPI Past [id number] Hx Patient Social History Alcohol Use: Denies Use Recreational Drug Use: No Recent Hopitalizations: No Physical Abuse: No Sexual Abuse: No Immunizations Up To Date Tetanus Booster (TDap): Less than 5yrs Date of Pneumonia Vaccine: May 09, 2012 Date of Influenza Vaccine: Feb 06, 2017 Seasonal Allergies Seasonal Allergies: No Surgeries History of Surgeries: Yes (BILATERAL INGUINAL HERNIA REPAIR; CATARACT SURGERY: TUPR: CARDIAC CATH-STENTS X2; EGD/COLONOSCOPY/ERCP; RIGHT ELBOW BURSECTOMY) Surgeries: Abdominal, Adenoidectomy, Cardiac, Coronary Stent, Eye Surgery, Orthopedic, Tonsillectomy, Transurethral Resection Respiratory History of Respiratory Disorde: No Cardiovascular History of Cardiac Disorders: Yes (STENTS X2) Cardiac Disorders: Coronary Artery Disease, High Cholesterol, Hypertension Neurological History of Neurological Disord: Yes (1994-STROKE) Neurological Disorders: Dementia, Stroke Reproductive System Hx Reproductive Disorders: No Sexually Transmitted Disease: No HIV/AIDS: No Genitourinary History of Genitourinary Disor: Yes (HX TURP; PROSTATE CANCER) Genitourinary Disorders: Benign Prostatic Hyperpl, Prostate Problems Gastrointestinal History of Gastrointestinal Di: Yes ("GASTRIC EROSIONS") Gastrointestinal Disorders: Gastroesophageal Reflux, Diverticulosis, Ulcer, Irritable Bowel Musculoskeletal History of Musculoskeletal Dis: Yes (ARTHRITIS) Musculoskeletal Disorders: Arthritis Endocrine History of Endocrine Disorders: No HEENT History of HEENT Disorders: Yes HEENT Disorders: Cataract Loss of Vision: Bilateral Hearing Impairment: Bilateral Hearing Aide Cancer History of Cancer: Yes Cancer: Prostate Did You Recieve Any Treatments: No Psychosocial History of Psychiatric Problem: No Suicide Risk Score: 0 Integumentary History of Skin or Integumenta: No Blood Transfusions History of Blood Disorders: No Adverse Reaction to a Blood Tr: No Physical Exam Vital Signs VS - Last 72 Hours, by Label 06/26/17 02:01 Temp 97.0 Pulse 66 Resp 18 B/P (MAP) 138/82 (100) Pulse Ox 98 Capillary Refill : General Appearance: WD/WN, no apparent distress Respiratory: normal breath sounds, no respiratory distress, no accessory muscle use Cardiovascular: regular rate, rhythm Gastrointestinal: normal bowel sounds, non tender, soft Extremities: normal inspection, no pedal edema Neurologic/Psychiatric: splunk architect II-XII nml as tested, no motor/sensory deficits, alert, normal mood/affect, oriented x 3 Skin: normal color Progress/Results/Core Measures Results/Orders My Orders Orders - ZAYDA NAIR DO Abdomen, Flat & Upright/Decub (06/26/17 02:03) Magnesium Citrate Oral Soln (Citrate Of (06/26/17 02:30) Bisacodyl Suppository (Dulcolax Supposit (06/26/17 02:30) Magnesium Citrate Oral Soln (Citrate Of (06/26/17 03:30) Peg 3340/Electrolyte Powder (Golytely Po (06/26/17 04:05) Peg 3340/Electrolyte Powder (Golytely Po (06/26/17 04:15) Medications Given in ED Current Medications Medications Dose Ordered Sig/Niall Route Start Time Stop Time Status Last Admin Dose Admin Bisacodyl 10 mg ONCE ONCE WA 06/26/17 02:30 06/26/17 02:32 DC 06/26/17 02:43 10 MG Magnesium Citrate 300 ml ONCE ONCE PO 06/26/17 02:30 06/26/17 02:32 DC 06/26/17 02:43 300 ML Magnesium Citrate 300 ml ONCE ONCE PO 06/26/17 03:30 06/26/17 03:31 DC 06/26/17 03:28 300 ML Polyethylene Glycol/ Electrolytes 4,000 ml ONCE ONCE PO 06/26/17 04:15 2/18/18 04:16 DC 06/26/17 04:53 4,000 ML Vital Signs/I&O Vital Sign - Last 12Hours 06/26/17 02:01 Temp 97.0 Pulse 66 Resp 18 B/P (MAP) 138/82 (100) Pulse Ox 98 Progress Note : Progress Note PT DRANK 2 BOTTLES OF MAGNESIUM CITRATE, AND HAD A MODERATE SIZED SOFT BM PT SLEPT FOR MOST OF ER STAY AND HAD NO COMPLAINTS Diagnostic Imaging Comments ABDOMEN XRAYS--NO OBSTRUCTION OR FREE AIR. LARGE AMOUNT OF STOOL IN COLON, PENDING RADIOLOGIST REVIEW Reviewed: Reviewed by Me Departure Impression Impression: Primary Impression: Constipation Disposition: HOME, SELF-CARE Condition: Stable Departure-Patient Inst. Referrals: DAYDAY JACQUES MD (PCP/Family) Primary Care Physician Patient Instructions: Constipation, Adult (DC) Add. Discharge Instructions: DRINK ONLY CLEAR LIQUIDS--WATER, BROTH, JELLO, GATORADE NO FOOD UNTIL YOU HAVE CLEANED YOUR BOWELS DRINK ALL OF GO-LYTELY TODAY, THEN START MIRALAX EVERY DAY FOLLOW UP WITH DR. JACQUES TOMORROW IF SYMPTOMS PERSIST All discharge instructions reviewed with patient and/or family. Voiced understanding. ZAYDA NAIR DO Jun 26, 2017 02:09
[2017-06-26] MEDS ORDERED: BISACODYL 10 MG SUPP (DULCOLAX) PR ONE (02:30)
[2017-06-26] MEDS ORDERED: MAGNESIUM CITRATE 300 ML BTL PO ONE ×2 (02:30→03:30)
[2017-06-26] MEDS ORDERED: GOLYTELY POWDER 4000 ML BTL PO ONE ×2 (04:05→04:15)
[2017-06-26 05:02] VITALS: BP 138/82
--- NOTE | 2017-06-26 07:53 | Diagnostic Imaging Report ---
INDICATION: Constipation COMPARISON: CT dated 09/25/2014 TECHNIQUE: Two radiographs of the abdomen dated 06/26/2017. FINDINGS: The minimally visualized lung bases are clear. Mesh tacks are identified related to prior hernia repair. No dilated loops of small bowel. No differential air-fluid levels. No free air. Phleboliths within the lower pelvis. Moderate apex left curvature of the thoracolumbar spine with scattered osseous degenerative changes. No acute osseous abnormality. IMPRESSION: Postsurgical and chronic findings as described above without acute abnormality. Dictated by: Dictated on workstation # [id number]
== END 2017-06-26 05:02 | disposition home or self-care (01) ==
LOC: EDUNIT# 01:52 → ER 01:53
DX: K59.00 Constipation, unspecified (principal); I25.10 Atherosclerotic heart disease of native coronary artery without angina pectoris; E78.00 Pure hypercholesterolemia, unspecified; I10 Essential (primary) hypertension; K21.9 Gastro-esophageal reflux disease without esophagitis; Z85.46 Personal history of malignant neoplasm of prostate; Z86.73 Personal history of transient ischemic attack (TIA), and cerebral infarction without residual deficits; Z88.8 Allergy status to other drugs, medicaments and biological substances; Z88.6 Allergy status to analgesic agent; Z79.82 Long term (current) use of aspirin; Z87.19 Personal history of other diseases of the digestive system; Z95.5 Presence of coronary angioplasty implant and graft; Z90.89 Acquired absence of other organs
CPT/HCPCS: 74019; 99283

== ENCOUNTER → 2017-07-01 | Outpatient (CLI) | payer MEDICARE ==
--- NOTE | 2017-07-01 11:20 | Diagnostic Imaging Report ---
INDICATION: Constipation for one week. TIME OF EXAMINATION: 11:29 a.m. COMPARISON: Correlation is made with prior study from 06/26/2017. FINDINGS: Thoracolumbar scoliotic curvature and spondylosis is again noted. The bowel gas pattern is nonobstructive. No free air is seen. No pathologic ossifications are identified. IMPRESSION: Stable unremarkable abdominal radiograph when compared with examination 5 days earlier. Dictated by: Dictated on workstation # [id number]
== END ==
LOC: RAD 10:58
PROVIDERS: ATTEND Nurse Practitioner Family
DX: K59.00 Constipation, unspecified (principal)
CPT/HCPCS: 74018

== ENCOUNTER → 2017-07-11 | Outpatient (CLI) | payer MEDICARE ==
--- NOTE | 2017-07-11 09:13 | Diagnostic Imaging Report ---
PROCEDURE: US Gallbladder. TECHNIQUE: Multiple real-time grayscale images were obtained over the right upper quadrant in various projections. INDICATION: Abdominal pain. The liver is normal in size at 13.3 cm. No discrete liver mass is identified. There appears to be a small echogenic non-mobile non-shadowing focus the gallbladder wall suggestive of a polyp. No stones are identified. There is no wall thickening. No biliary duct dilatation is identified. Common duct is 3 mm. The visualized pancreas is unremarkable. Right kidney is unremarkable. There is no ascites. IMPRESSION: No evidence of cholelithiasis or acute cholecystitis. Dictated by: Dictated on workstation # [id number]
== END ==
LOC: RAD 07:30
PROVIDERS: ATTEND Nurse Practitioner Family
DX: R10.9 Unspecified abdominal pain (principal)
CPT/HCPCS: 76705

== ENCOUNTER → 2017-07-18 | Outpatient (CLI) | payer MEDICARE ==
[~2017-07-18] MED LIST changes: +BARIUM SUSPENSION 60% (LIQUID EZ PAQUE) 240 ML DOSE PO ONE
--- NOTE | 2017-07-18 13:41 | Diagnostic Imaging Report ---
Procedure: Small bowel exam. Indication: Abdominal pain. Findings: The preliminary film reveals that there is gas in both large and small bowel in a nonspecific fashion. This appearance is similar to the prior exam of 06/26/2017. The patient swallowed contrast material without difficulty. Transit time through the small bowel was approximately 3 hours (normal transit time 30 minutes to 3 hours). There is no abnormal dilatation, narrowing or mass effect involving the small bowel. The terminal ileum was visualized and was unremarkable. Impression: The transit time through the small bowel is somewhat slow but within normal limits. There is no obstruction of the small bowel. Dictated by: Dictated on workstation # [id number]
== END ==
LOC: RAD 07:47
PROVIDERS: ATTEND Nurse Practitioner Family
DX: R10.9 Unspecified abdominal pain (principal)
CPT/HCPCS: 74250

== ENCOUNTER → 2017-08-11 | Outpatient (CLI) | payer MEDICARE ==
[~2017-08-11] MED LIST changes: -BARIUM SUSPENSION 60% (LIQUID EZ PAQUE) 240 ML DOSE PO ONE; +CATHETER FLUSH 10 ML SYR IV PRN; +IOHEXOL 350 MG/ML 100 ML (OMNIPAQUE 350) VIAL IV ONE; +NS 250 ML (IVPB) BAG IV ONE; +RECEIVED CONTRAST (Hold Metformin) IV SCH
[2017-08-11 13:36] LABS: BUN/CREATININE RATIO 19; CREATININE SERUM 1.06 MG/DL (0.60-1.30); GFR ESTIMATED > 60
--- NOTE | 2017-08-11 16:07 | Diagnostic Imaging Report ---
EXAMINATION: CTA of the abdomen. INDICATION: Chronic mesenteric ischemia. TECHNIQUE: Contiguous axial sections were taken through the abdomen following administration of intravenous contrast. Sagittal and coronal reconstructed images were also performed. MIP images were obtained as well. FINDINGS: The previous CTA chest, abdomen, and pelvis exam of 06/25/2017 failed to show any abnormality of the aorta. There is no sign of a hemodynamically significant stenosis of the celiac axis, superior mesenteric artery, renal arteries, inferior mesenteric artery, or the common iliac arteries. On this exam, there is still no hemodynamically significant stenosis of those vessels identified. The aorta is not aneurysmally dilated, and there is no sign of a dissection. The liver is homogeneous and not enlarged. The spleen, pancreas, adrenals, kidneys, and inferior vena cava are unremarkable for an acute abnormality. The gallbladder is not well distended and consequently difficult to assess. The stomach is filled with fluid. As noted on the prior exam, there is a considerable amount of fecal material throughout the colon. There is also gas in both the large and small bowel in a nonspecific fashion. The bone windows show no evidence for a fracture or for a destructive lesion. There is fairly severe degenerative disc and bony disease throughout the lumbar spine and the lower thoracic spine. There is no acute abnormality identified. The lung bases are clear. IMPRESSION: 1. There is no evidence for an aneurysm of the aorta, and there is no sign of an acute abnormality of the aorta. There is no hemodynamically significant stenosis of the major branches of the aorta. In particular, there is no sign of a hemodynamically significant stenosis of the superior mesenteric or celiac axis arteries. 2. There is no acute abnormality of the abdomen. 3. The stomach is filled with fluid. 4. There is a considerable amount of fecal material throughout the visualized colon. Dictated by: Dictated on workstation # [id number]
== END ==
LOC: RAD 13:07
PROVIDERS: ATTEND Surgery
DX: K55.1 Chronic vascular disorders of intestine (principal)
CPT/HCPCS: 36415; 74175; 82565; 84520

== ENCOUNTER 2017-08-22 05:39 | Outpatient (CLI) | payer MEDICARE ==
[~2017-08-22] VITALS: Ht 177.8 cm; Wt 63.7 kg
[~2017-08-22 05:39] MED LIST changes: -CATHETER FLUSH 10 ML SYR IV PRN; -IOHEXOL 350 MG/ML 100 ML (OMNIPAQUE 350) VIAL IV ONE; -NS 250 ML (IVPB) BAG IV ONE; -RECEIVED CONTRAST (Hold Metformin) IV SCH
[2017-08-22] MEDS ORDERED: NF-SOLIF5T PO (09:55)
[2017-08-22] MEDS ORDERED: CITA10TA12 PO (09:55)
[2017-08-22] MEDS ORDERED: SULF1TAB34 PO (09:55)
[2017-08-22] MEDS ORDERED: MIRT15TA6 PO (09:55)
[2017-08-22] MEDS ORDERED: MULT1CAP27 PO (09:55)
[2017-08-22] MEDS ORDERED: FINA5TAB6 PO (09:55)
[2017-08-22] MEDS ORDERED: CALC625T29 PO (09:55)
== END 2017-08-22 10:10 ==
LOC: PREOP 05:39
PROVIDERS: ATTEND Surgery
DX: Z01.818 Encounter for other preprocedural examination (principal); R63.4 Abnormal weight loss; R19.5 Other fecal abnormalities

== ENCOUNTER 2017-09-08 12:57 | Outpatient (RCR) | payer MEDICARE ==
[~2017-09-08 12:57] MED LIST changes: +CALC625T29 PO; +CITA10TA12 PO; +FINA5TAB6 PO; +NF-SOLIF5T PO; +SULF1TAB34 PO
[2017-09-10] MEDS ORDERED: GLYB1.253 PO (18:17)
[2017-09-24] MEDS ORDERED: METO5TAB2 PO (22:10)
[2017-09-24] MEDS ORDERED: FAMO-119 PO (22:10)
== END 2017-10-06 11:28 | disposition home or self-care (01) ==
PROVIDERS: ATTEND Family Medicine
DX: M54.5 Low back pain (principal); M54.6 Pain in thoracic spine; M79.602 Pain in left arm

== ENCOUNTER 2017-09-10 13:46 | Emergency (ER) | payer MEDICARE ==
[~2017-09-10] VITALS: Ht 177.8 cm; Wt 59.4 kg
[2017-09-10] MEDS ORDERED: NS IV 500 ML 500 ML IV ONE (14:11)
[2017-09-10 14:21] LABS: BASOPHILS % (AUTO) 0 % (0-10); EOSINOPHILS % (AUTO) 0 % (0-10); HEMATOCRIT 37 % (40-54); HEMOGLOBIN 12.8 G/DL (13.3-17.7); LYMPHOCYTES # (AUTO) 0.4 X 10^3 (1.0-4.0); LYMPHOCYTES % (AUTO) 5 % (12-44); MEAN CORPUSCULAR HEMOGLOBIN 33 PG (25-34); MEAN CORPUSCULAR HGB CONC 35 G/DL (32-36); MEAN CORPUSCULAR VOLUME 94 FL (80-99); MEAN PLATELET VOLUME 10.4 FL (7.4-10.4); MONOCYTES # (AUTO) 0.4 X 10^3 (0.0-1.0); MONOCYTES % (AUTO) 5 % (0-12); NEUTROPHILS # (AUTO) 7.6 X 10^3 (1.8-7.8); NEUTROPHILS % (AUTO) 90 % (42-75); PLATELET COUNT 163 10^3/uL (130-400); RED BLOOD COUNT 3.91 10^6/uL (4.35-5.85); WHITE BLOOD COUNT 8.4 10^3/uL (4.3-11.0)
[2017-09-10 14:33] LABS: ALANINE AMINOTRANSFERASE 17 U/L (0-55); ALKALINE PHOSPHATASE 75 U/L (40-136); BILIRUBIN,TOTAL 0.5 MG/DL (0.1-1.0); BUN/CREATININE RATIO 17; CARBON DIOXIDE 23 MMOL/L (21-32); CHLORIDE 100 MMOL/L (98-107); CREATININE SERUM 0.98 MG/DL (0.60-1.30); GFR ESTIMATED > 60; GLUCOSE 220 MG/DL (70-105); SODIUM 132 MMOL/L (135-145); TOTAL PROTEIN 5.8 GM/DL (6.4-8.2)
--- NOTE | 2017-09-10 14:40 | ED General ---
General Chief Complaint: General Problems/Pain Stated Complaint: WEAKNESS/ALMOST PASSED OUT Nursing Triage Note: pt reports generalized weakness/fatigue x a week. pt reports saw a probation officer at dr philippe office yesterday and had blood work done but does not know results. Pt reports after lunch today he felt very faint but did not pass out. Nursing Sepsis Screen: No Definite Risk Source of Information: Patient Exam Limitations: No Limitations History of Present Illness Date Seen by Provider: September 10, 2017 Time Seen by Provider: 14:27 Initial Comments Here with report of generalized weakness it's been going on for most of this week. Had colonoscopy on Tuesday or Tuesday and since then he has been generally weak. He was able to walk out after the colonoscopy but later when it got home, he felt weak and overall not well. He has been able to eat and drink but does note a 10 pound weight loss that this may have been over months. No chest pain, breathing problems or vomiting. Does get nauseated when he has the weakness episodes. He is able to eat and drink. Timing/Duration: 4-5 Days, Intermittent Severity: Moderate Associated Systoms: No Chest Pain, No Cough, No Fever/Chills, No Headaches; Nausea/Vomiting; No Shortness of Air; Weakness, Other (near syncope) Allergies and Home Medications Allergies Coded Allergies: butorphanol (Verified Allergy, Unknown, 08/22/17) ketorolac (Verified Adverse Reaction, Mild, STATES CAUSES MORE PAIN, ) Home Medications Amlodipine Besylate 10 Mg Tablet, 10 MG PO HS, (Reported) Aspirin 81 Mg Tablet.dr, 81 MG PO DAILY, (Reported) Calcium Polycarbophil 625 Mg Tablet, 625 MG PO DAILY, (Reported) Cetirizine HCl 10 Mg Tablet, 10 MG PO DAILY Prescribed by: JONN REID on 04/14/16 0821 Citalopram Hydrobromide 10 Mg Tablet, 10 MG PO DAILY, (Reported) Clopidogrel Bisulfate 75 Mg Tablet, 75 MG PO DAILY, (Reported) Donepezil HCl 10 Mg Tablet, 10 MG PO HS, (Reported) Finasteride 5 Mg Tablet, 5 MG PO DAILY, (Reported) Lisinopril 20 Mg Tablet, 20 MG PO DAILY, (Reported) Melatonin/Pyridoxine 1 Each Tablet, 5 MG PO HS, (Reported) Meloxicam 15 Mg Tablet, 7.5 MG PO DAILY, (Reported) Memantine HCl 10 Mg Tablet, 10 MG PO BID, (Reported) Mirtazapine 15 Mg Tablet, 15 MG PO DAILY, (Reported) Multivitamin 1 Each Capsule, 1 EACH PO DAILY, (Reported) Ropinirole HCl 0.25 Mg Tab, 0.25 MG PO BID Prescribed by: JONN REID on 04/14/16 0825 Solifenacin Succinate 5 Mg Tablet, 5 MG PO DAILY, (Reported) Patient Home Medication List Home Medication List Reviewed: Yes Review of Systems Constitutional: see HPI; No chills, No fever EENTM: no symptoms reported Respiratory: no symptoms reported Cardiovascular: see HPI; No chest pain Gastrointestinal: No abdominal pain, No diarrhea; nausea; No vomiting Genitourinary: no symptoms reported Musculoskeletal: no symptoms reported Skin: no symptoms reported Psychiatric/Neurological: Denies Headache; Weakness All Other Systems Reviewed Negative Unless Noted: Yes Past Bzvnwul-Ptacyh-Bqqwmu Hx Past Med/Social Hx: Reviewed Nursing Past Med/Soc Hx Patient Social History Alcohol Use: Denies Use Recreational Drug Use: No Smoking Status: Never a Smoker Recent Foreign Travel: No Contact w/Someone Who Travel: No Recent Infectious Disease Expo: No Recent Hopitalizations: No Physical Abuse: No Sexual Abuse: No Mistreated: No Fear: No Immunizations Up To Date Tetanus Booster (TDap): Less than 5yrs Date of Pneumonia Vaccine: May 09, 2012 Date of Influenza Vaccine: Feb 06, 2017 Seasonal Allergies Seasonal Allergies: No Past Medical History Surgeries: Yes (BILAT INGHERNIA ,CATARACT SURGERY, TURP) Abdominal, Adenoidectomy, Cardiac, Coronary Stent, Eye Surgery, Orthopedic, Tonsillectomy, Transurethral Resection Respiratory: No Cardiac: Yes (STENTS X2) Coronary Artery Disease, High Cholesterol, Hypertension Neurological: Yes (1994-STROKE) Dementia, Stroke Reproductive Disorders: No Sexually Transmitted Disease: No HIV/AIDS: No Genitourinary: Yes (HX TURP; PROSTATE CANCER) Benign Prostatic Hyperpl, Prostate Problems Gastrointestinal: Yes ("GASTRIC EROSIONS") Gastroesophageal Reflux, Chronic Constipation, Diverticulosis, Ulcer, Irritable Bowel Musculoskeletal: Yes (ARTHRITIS) Arthritis Endocrine: No HEENT: Yes Cataract Loss of Vision: Bilateral Hearing Impairment: Hard of Hearing, Bilateral Hearing Aide Cancer: Yes (?) Prostate Did You Recieve Any Treatments: No Psychosocial: No Nursing Suicide Risk Score: 0 Integumentary: No Blood Disorders: No Adverse Reaction/Blood Tranf: No (HAS HAD BLOOD WITH NO REACTION) Family Medical History Reviewed Nursing Family Hx Physical Exam Vital Signs Vital Signs - First Documented 09/10/17 13:56 Temp 97.1 Pulse 64 Resp 18 B/P (MAP) 136/69 (91) Pulse Ox 96 Capillary Refill : Less Than 3 Seconds General Appearance: No Apparent Distress, Thin HEENT: PERRL/EOMI, Pharynx Normal Neck: Non Tender, Supple Respiratory: Lungs Clear, Normal Breath Sounds Cardiovascular: Regular Rate, Rhythm, No Murmur Gastrointestinal: Non Tender, Soft Back: Normal Inspection, No CVA Tenderness, No Vertebral Tenderness Extremity: Normal Range of Motion, Non Tender Neurologic/Psychiatric: Alert, Oriented x3, Normal Mood/Affect Skin: Normal Color, Warm/Dry Progress/Results/Core Measures Suspected Sepsis Recent Fever Within 48 Hours: No Infection Criteria Present: None New/Unexplained Altered Menta: No Sepsis Screen: No Definite Risk SIRS Temperature:97.1 Pulse: 64 Respiratory Rate: 18 Laboratory Tests 09/10/17 14:09: White Blood Count 8.4 Blood Pressure 136 /69 Mean: 91 Laboratory Tests 09/10/17 14:09: Creatinine 0.98, Platelet Count 163, Total Bilirubin 0.5 Results/Orders Lab Results Laboratory Tests Test 09/10/17 14:09 09/10/17 14:46 Range/Units White Blood Count 8.4 4.3-11.0 10^3/uL Red Blood Count 3.91 L 4.35-5.85 10^6/uL Hemoglobin 12.8 L 13.3-17.7 G/DL Hematocrit 37 L 40-54 % Mean Corpuscular Volume 94 80-99 FL Mean Corpuscular Hemoglobin 33 25-34 PG Mean Corpuscular Hemoglobin Concent 35 32-36 G/DL Red Cell Distribution Width 14.0 10.0-14.5 % Platelet Count 163 130-400 10^3/uL Mean Platelet Volume 10.4 7.4-10.4 FL Neutrophils (%) (Auto) 90 H 42-75 % Lymphocytes (%) (Auto) 5 L 12-44 % Monocytes (%) (Auto) 5 0-12 % Eosinophils (%) (Auto) 0 0-10 % Basophils (%) (Auto) 0 0-10 % Neutrophils # (Auto) 7.6 1.8-7.8 X 10^3 Lymphocytes # (Auto) 0.4 L 1.0-4.0 X 10^3 Monocytes # (Auto) 0.4 0.0-1.0 X 10^3 Eosinophils # (Auto) 0.0 0.0-0.3 10^3/uL Basophils # (Auto) 0.0 0.0-0.1 10^3/uL Neutrophils % (Manual) 91 % Lymphocytes % (Manual) 2 % Monocytes % (Manual) 7 % Eosinophils % (Manual) 0 % Basophils % (Manual) 0 % Band Neutrophils 0 % Blood Morphology Comment NORMAL Sodium Level 132 L 135-145 MMOL/L Potassium Level 4.0 3.6-5.0 MMOL/L Chloride Level 100 98-107 MMOL/L Carbon Dioxide Level 23 21-32 MMOL/L Anion Gap 9 5-14 MMOL/L Blood Urea Nitrogen 17 7-18 MG/DL Creatinine 0.98 0.60-1.30 MG/DL Estimat Glomerular Filtration Rate > 60 BUN/Creatinine Ratio 17 Glucose Level 220 H 70-105 MG/DL Calcium Level 9.0 8.5-10.1 MG/DL Total Bilirubin 0.5 0.1-1.0 MG/DL Aspartate Amino Transf (AST/SGOT) 30 5-34 U/L Alanine Aminotransferase (ALT/SGPT) 17 0-55 U/L Alkaline Phosphatase 75 40-136 U/L C-Reactive Protein High Sensitivity 0.03 0.00-0.50 MG/DL Total Protein 5.8 L 6.4-8.2 GM/DL Albumin 4.0 3.2-4.5 GM/DL Thyroid Stimulating Hormone (TSH) 1.42 0.35-4.94 UIU/ML Urine Color YELLOW Urine Clarity CLEAR Urine pH 6.5 5-9 Urine Specific [place] 1.015 L 1.016-1.022 Urine Protein 1+ H NEGATIVE Urine Glucose (UA) 4+ H NEGATIVE Urine Ketones NEGATIVE NEGATIVE Urine Nitrite NEGATIVE NEGATIVE Urine Bilirubin NEGATIVE NEGATIVE Urine Urobilinogen NORMAL NORMAL MG/DL Urine Leukocyte Esterase NEGATIVE NEGATIVE Urine RBC (Auto) 1+ H NEGATIVE Urine RBC RARE /HPF Urine WBC NONE /HPF Urine Squamous Epithelial Cells NONE /HPF Urine Crystals NONE /LPF Urine Bacteria NEGATIVE /HPF Urine Casts NONE /LPF Urine Mucus NEGATIVE /LPF Urine Culture Indicated NO My Orders Orders - AQUILINO DUDLEY MD Cbc With Automated Diff (09/10/17 14:11) Comprehensive Metabolic Panel (09/10/17 14:11) Hs C Reactive Protein (09/10/17 14:11) Thyroid Stimulating Hormone (09/10/17 14:11) Ua Culture If Indicated (09/10/17 14:11) Saline Lock/Iv-Start (09/10/17 14:11) Ns Iv 500 Ml (Sodium Chloride 0.9%) (09/10/17 14:11) Manual Differential (09/10/17 14:09) Chest Pa/Lat (2 View) (09/10/17 14:35) Ct Abdomen/Pelvis Wo (09/10/17 16:00) Hemoglobin A1c (09/10/17 17:12) Glyburide Tablet (Micronase Tablet) (09/10/17 17:15) Medications Given in ED Current Medications Medications Dose Ordered Sig/Niall Route Start Time Stop Time Status Last Admin Dose Admin Sodium Chloride 500 ml @ 0 mls/hr Q0M ONCE IV 09/10/17 14:11 09/10/17 14:13 DC 09/10/17 14:35 0 MLS/HR Vital Signs/I&O 09/10/17 13:56 Temp 97.1 Pulse 64 Resp 18 B/P (MAP) 136/69 (91) Pulse Ox 96 Capillary Refill : Less Than 3 Seconds Blood Pressure Mean: 91 Progress Note : Progress Note Seen and evaluated. IV, labs, UA and chest x-ray ordered. Monitor patient. Normal saline 500 mL bolus. Chest x-ray results noted. CT abdomen and pelvis ordered. Monitor patient. Blood sugar noted to be elevated. I discussed the case with Dr. Caro at 1709 related to the diabetes. Patient does not seem to have any other sequela. There is some bladder wall thickening that needs to be evaluated further and patient follows with Dr. Coburn. I will send a copy of the chart Dr. Coburn and Dr. Jacques. I am requesting that the patient follow up in Dr. Jacques's office on Tuesday to recheck blood sugar and reevaluate the medications. We will start glyburide 1.25 mg by mouth today and will continue that as outpatient. I will write a prescription for [address] then [address] Jacques adjust as needed per recommendation of Dr. Caro. All of this was discussed with the patient and family who agree. Hemoglobin A1c has been ordered and is pending. Discharged home with return precautions. Patient and family verbalize understanding instructions and agreement with plan. Diagnostic Imaging Diagonstic Imaging: Xray Plain Films/CT/US/NM/MRI: chest Comments NAME: JENIFER BORJAS [facility] REC#: [id number] PT STATUS: REG ER : 1930 PHYSICIAN: AQUILINO DUDLEY MD ADMIT DATE: 09/10/17/ER Signed Date of Exam: 09/10/17 CHEST PA/LAT (2 VIEW) INDICATION: Generalized weakness and fatigue. COMPARISON: CT abdomen from 08/11/2017. FINDINGS: Hyperaerated lung volume. Lungs are clear. No pleural effusion or pneumothorax. Heart is normal in size. Normal pulmonary vasculature. Air under the left hemidiaphragm appears to be within the air and fluid-filled stomach. IMPRESSION: 1. No acute cardiopulmonary process. 2. Air under the left hemidiaphragm appears to be within the air and fluid-filled stomach. However, if patient has abdominal pain, CT could be performed to rule out pneumoperitoneum. Dictated by: Dictated on workstation # [id number] Dict: 09/10/17 1536 Trans: 09/10/17 1604 Interpreted by: SOFÍA PEREZ MD Electronically signed by: SOFÍA PEREZ MD 09/10/17 1604 Diagonstic Imaging: CT Plain Films/CT/US/NM/MRI: abdomen, pelvis Comments V[facility] [place] [facility] [place], [place] NAME: JENIFER BORJAS [facility] REC#: [id number] PT STATUS: REG ER : 1930 PHYSICIAN: AQUILINO DUDLEY MD ADMIT DATE: 09/10/17/ER Draft Date of Exam:09/10/17 CT ABDOMEN/PELVIS WO INDICATION: Abdominal bloating. TECHNIQUE: Noncontrast axial CT of the abdomen and pelvis. FINDINGS: There is increased AP diameter of the lungs that may be due to chronic obstructive disease. There is coronary atherosclerosis. The heart is normal in size. There is no pericardial effusion. No focal hepatic lesions are seen. The spleen appears normal. The pancreas is unremarkable. The kidneys demonstrate mild hydroureteronephrosis, bilaterally. No definite calculi are seen. This appears stable since June. The stomach is moderately distended. The bowel loops are nondistended without evidence of obstruction seen. No free air is seen. No free fluid is seen. Coils from prior abdominal hernia repair are noted, anteriorly. There is thickening of the anterior urinary bladder wall which is irregular. There is moderate left convex curvature at the thoracolumbar junction. No acute osseous abnormality is seen. There are degenerative changes throughout the spine. There is a peripherally lucent and centrally sclerotic lesion in the left iliac, which appears stable since 2010. There appear to be postsurgical changes at the prostate. IMPRESSION: 1. Moderately distended stomach, with no bowel obstruction seen. 2. Irregular thickened anterior urinary bladder wall. This may be due to infection, malignancy, post-therapeutic changes or chronic outlet obstruction. 3. Stable mild bilateral hydronephrosis, with no obstructing calculi seen. Dictated on workstation # [id number] Dict: 09/10/17 1646 Trans: 09/10/17 1657 [facility] [id number] Interpreted by: WESLEY LENTZ MD Electronically signed by: Departure Impression Primary Impression: New onset type 2 diabetes mellitus Additional Impression: Dehydration Disposition: 01 HOME, SELF-CARE Condition: Stable Departure-Patient Inst. Decision time for Depature: 17:24 Referrals: DAYDAY JACQUES MD (PCP/Family) Primary Care Physician HARPAL COBURN MD Patient Instructions: Dehydration, Adult (DC), Hyperglycemia, Adult (DC) Add. Discharge Instructions: All discharge instructions reviewed with patient and/or family. Voiced understanding. Take medications as directed. Follow-up with Dr. Jacques or one of her practitioners on Tuesday for recheck and further evaluation and to discuss the new medication, glyburide, that you were started on for what appears to be new onset diabetes. You also need to follow-up with Dr. Coburn in 1-2 weeks for recheck related to the bladder thickening noted on the CT scan. Drink plenty of fluids. Return for worse pain, fever, vomiting, weakness, breathing problems or other concerns as needed. Copy Copies To 1: DAYDAY JACQUES MD Copies To 2: HARPAL COBURN MD, TIMOTHY D MD September 10, 2017 14:40
[2017-09-10 14:52] LABS: BILIRUBIN,URINE NEGATIVE (NEGATIVE); CLARITY,URINE CLEAR; COLOR,URINE YELLOW; GLUCOSE, URINE (UA) 4+ (NEGATIVE); KETONES,URINE NEGATIVE (NEGATIVE); LEUKOCYTE ESTERASE ,URINE NEGATIVE (NEGATIVE); NITRITE,URINE NEGATIVE (NEGATIVE); PH,URINE 6.5 (5-9); PROTEIN,URINE 1+ (NEGATIVE); UROBILINOGEN,URINE NORMAL (NORMAL)
[2017-09-10 15:00] LABS: BAND NEUTROPHILS 0 %; BASOPHILS % (MANUAL) 0 %; EOSINOPHILS % (MANUAL) 0 %; LYMPHOCYTES % (MANUAL) 2 %; MONOCYTES % (MANUAL) 7 %; NEUTROPHILS % (MANUAL) 91 %; RBC MORPH NORMAL
[2017-09-10 15:05] LABS: BACTERIA,URINE NEGATIVE /HPF; RBC,URINE RARE /HPF
--- NOTE | 2017-09-10 15:41 | Diagnostic Imaging Report ---
INDICATION: Generalized weakness and fatigue. COMPARISON: CT abdomen from 08/11/2017. FINDINGS: Hyperaerated lung volume. Lungs are clear. No pleural effusion or pneumothorax. Heart is normal in size. Normal pulmonary vasculature. Air under the left hemidiaphragm appears to be within the air and fluid-filled stomach. IMPRESSION: 1. No acute cardiopulmonary process. 2. Air under the left hemidiaphragm appears to be within the air and fluid-filled stomach. However, if patient has abdominal pain, CT could be performed to rule out pneumoperitoneum. Dictated by: Dictated on workstation # [id number]
--- NOTE | 2017-09-10 16:58 | Diagnostic Imaging Report ---
INDICATION: Abdominal bloating. TECHNIQUE: Noncontrast axial CT of the abdomen and pelvis. FINDINGS: There is increased AP diameter of the lungs that may be due to chronic obstructive disease. There is coronary atherosclerosis. The heart is normal in size. There is no pericardial effusion. No focal hepatic lesions are seen. The spleen appears normal. The pancreas is unremarkable. The kidneys demonstrate mild hydroureteronephrosis, bilaterally. No definite calculi are seen. This appears stable since June. The stomach is moderately distended. The bowel loops are nondistended without evidence of obstruction seen. No free air is seen. No free fluid is seen. Coils from prior abdominal hernia repair are noted, anteriorly. There is thickening of the anterior urinary bladder wall which is irregular. There is moderate left convex curvature at the thoracolumbar junction. No acute osseous abnormality is seen. There are degenerative changes throughout the spine. There is a peripherally lucent and centrally sclerotic lesion in the left iliac, which appears stable since 2010. There appear to be postsurgical changes at the prostate. IMPRESSION: 1. Moderately distended stomach, with no bowel obstruction seen. 2. Irregular thickened anterior urinary bladder wall. This may be due to infection, malignancy, post-therapeutic changes or chronic outlet obstruction. 3. Stable mild bilateral hydronephrosis, with no obstructing calculi seen. Dictated by: Dictated on workstation # [id number]
[2017-09-10] MEDS ORDERED: glyBURIDE 2.5 MG (MICRONASE) TAB PO ONE (17:15)
[2017-09-10 18:11] VITALS: BP 141/80
[2017-09-10] MEDS ORDERED: GLYB1.253 PO (18:17)
== END 2017-09-10 18:08 | disposition home or self-care (01) ==
LOC: EDUNIT# 13:46 → ER 13:47
DX: E11.9 Type 2 diabetes mellitus without complications (principal); E86.0 Dehydration; K21.9 Gastro-esophageal reflux disease without esophagitis; I25.10 Atherosclerotic heart disease of native coronary artery without angina pectoris; E78.00 Pure hypercholesterolemia, unspecified; I10 Essential (primary) hypertension; Z95.5 Presence of coronary angioplasty implant and graft; Z90.79 Acquired absence of other genital organ(s); Z86.73 Personal history of transient ischemic attack (TIA), and cerebral infarction without residual deficits; Z87.19 Personal history of other diseases of the digestive system; Z85.46 Personal history of malignant neoplasm of prostate; Z90.89 Acquired absence of other organs; Z79.82 Long term (current) use of aspirin; Z88.6 Allergy status to analgesic agent; Z88.5 Allergy status to narcotic agent
CPT/HCPCS: 36415; 71046; 74176; 80053; 81000; 83036; 84443; 85007; 85027; 86141; 96360; 96361

== ENCOUNTER 2017-10-22 10:38 | Emergency (ER) | payer MEDICARE ==
[~2017-10-22] VITALS: Ht 177.8 cm; Wt 59.9 kg
[~2017-10-22 10:38] MED LIST changes: +FAMO-119 PO; +GLYB1.253 PO; +METO5TAB2 PO
--- OUTSIDE RECORDS SUMMARY | 2017-10-22 10:50 | XMS REPORT | Clinical Summary ---
Author Author [facility] Organization [facility] Address Unknown Phone Unavailable Care Team Providers Care Flight Teacher Name Role Phone No Pcp, Na PCP Unavailable Source Comments Some departments are not documenting in the electronic medical record. If you do not see the information that you expected, contact Release of Information in the Health Information Management department at [phone] for further assistance in locating additional records.[facility] Allergies Not on File Current Medications Not on file Active Problems Problem Noted Date Elevated PSA Overview: PNBx (12/04/2015): No evidence of malignancy; Dr. Quintero. Outside PSA Hx: PSA (12/03/2016) > 50.0 PSA (05/20/2016)=31.4 PSA (11/20/2015)=26.9 Social History Tobacco Use Types Packs/Day Years Used Date Never Assessed Sex Assigned at Date Recorded Not on file Last Filed Vital Signs Not on file Plan of Treatment Health Maintenance Due Date Last Done Comments PHYSICAL (COMPREHENSIVE) 10/19/1938 EXAM PERTUSSIS VACCINE 10/19/1942 TETANUS VACCINE 10/19/1948 SHINGLES VACCINE 1991 PNEUMONIA (PCV13/PPSV23) 10/19/1996 VACCINES (1 of 2 - PCV13) INFLUENZA VACCINE 02/06/2018 Results Not on filefrom Last 3 Months
--- NOTE | 2017-10-22 11:12 | ED Abdominal Pain ---
General Chief Complaint: Abdominal/GI Problems Stated Complaint: STOMACH PAIN Source of Information: Patient Exam Limitations: No Limitations (BISHNU MARK MD) History of Present Illness Date Seen by Provider: Oct 22, 2017 Time Seen by Provider: 11:11 Initial Comments Lucas Zhao evaluated this patient in the emergency department. (BISHNU MARK MD) Initial Comments pain has been present for over one month. It is no different today, he has simply grown tired of it.no fevers or chills. No nausea or vomiting.pain is constant and he cannot identify any modifying factors. Timing/Duration: Other Severity/Quality: Aching Location: Epigastric Radiation: Epigastric Associated Symptoms: No Nausea/Vomiting (LUCAS ZHAO APRN) Allergies and Home Medications Allergies Coded Allergies: butorphanol (Verified Allergy, Unknown, 08/22/17) ketorolac (Verified Adverse Reaction, Mild, STATES CAUSES MORE PAIN, ) Home Medications Amlodipine Besylate 10 Mg Tablet, 10 MG PO HS, (Reported) Aspirin 81 Mg Tablet.dr, 81 MG PO DAILY, (Reported) Calcium Polycarbophil 625 Mg Tablet, 625 MG PO DAILY, (Reported) Cetirizine HCl 10 Mg Tablet, 10 MG PO DAILY Prescribed by: JONN REID on 04/14/16 0821 Citalopram Hydrobromide 10 Mg Tablet, 10 MG PO DAILY, (Reported) Clopidogrel Bisulfate 75 Mg Tablet, 75 MG PO DAILY, (Reported) Donepezil HCl 10 Mg Tablet, 10 MG PO HS, (Reported) Famotidine 20 Mg Tablet, 20 MG PO BID Prescribed by: SHU TODD on 09/24/172209 Finasteride 5 Mg Tablet, 5 MG PO DAILY, (Reported) Glyburide 1.25 Mg Tablet, 1.25 MG PO DAILY Prescribed by: AQUILINO DUDLEY on 09/10/171816 Lisinopril 20 Mg Tablet, 20 MG PO DAILY, (Reported) Melatonin/Pyridoxine 1 Each Tablet, 5 MG PO HS, (Reported) Meloxicam 15 Mg Tablet, 7.5 MG PO DAILY, (Reported) Memantine HCl 10 Mg Tablet, 10 MG PO BID, (Reported) Metoclopramide HCl 5 Mg Tablet, 5 MG PO ACHS Prescribed by: SHU TODD on 09/24/172209 Mirtazapine 15 Mg Tablet, 15 MG PO DAILY, (Reported) Multivitamin 1 Each Capsule, 1 EACH PO DAILY, (Reported) Pantoprazole Sodium 40 Mg Tablet.dr, 40 MG PO DAILY Prescribed by: LUCAS ZHAO on 10/22/17 132 Ropinirole HCl 0.25 Mg Tab, 0.25 MG PO BID Prescribed by: JONN REID on 04/14/16 0825 Solifenacin Succinate 5 Mg Tablet, 5 MG PO DAILY, (Reported) Sucralfate 1 Gm Tablet, 1 GM PO ACHS makes with 2 teaspoon of water to dissolve into a slurry. Alternatively, may swallow the tablet in solid form Prescribed by: LUCAS ZHAO on 10/22/171325 Patient Home Medication List Home Medication List Reviewed: Yes (LUCAS ZHAO APRN) Review of Systems Constitutional: see HPI EENTM: No Symptoms Reported Respiratory: No Symptoms Reported Cardiovascular: No Symptoms Reported Gastrointestinal: See HPI, Abdominal Pain Genitourinary: No Symptoms Reported Musculoskeletal: no symptoms reported Skin: no symptoms reported Psychiatric/Neurological: No Symptoms Reported Endocrine: No Symptoms Reported Hematologic/Lymphatic: No Symptoms Reported (LUCAS ZHAO APRN) Past Angizmt-Dyswvo-Tbxzos Hx Patient Social History Recent Foreign Travel: No Contact w/Someone Who Travel: No Recent Hopitalizations: No (BISHNU MARK MD) Immunizations Up To Date Tetanus Booster (TDap): Less than 5yrs Date of Pneumonia Vaccine: May 09, 2012 Date of Influenza Vaccine: Feb 06, 2017 (BISHNU MARK MD) Seasonal Allergies Seasonal Allergies: No (BISHNU MARK MD) Past Medical History Surgeries: Yes (BILAT INGHERNIA ,CATARACT SURGERY, TURP) Abdominal, Adenoidectomy, Cardiac, Coronary Stent, Eye Surgery, Orthopedic, Tonsillectomy, Transurethral Resection Respiratory: No Cardiac: Yes (STENTS X2) Coronary Artery Disease, High Cholesterol, Hypertension Neurological: Yes (1993-STROKE) Dementia, Stroke Reproductive Disorders: No Sexually Transmitted Disease: No HIV/AIDS: No Genitourinary: Yes (HX TURP; PROSTATE CANCER) Benign Prostatic Hyperpl, Prostate Problems Gastrointestinal: Yes ("GASTRIC EROSIONS") Gastroesophageal Reflux, Chronic Constipation, Diverticulosis, Ulcer, Irritable Bowel Musculoskeletal: Yes (ARTHRITIS) Arthritis Endocrine: No HEENT: Yes Cataract Loss of Vision: Bilateral Hearing Impairment: Hard of Hearing, Bilateral Hearing Aide Cancer: Yes (?) Prostate Did You Recieve Any Treatments: No Psychosocial: No Integumentary: No Blood Disorders: No Adverse Reaction/Blood Tranf: No (HAS HAD BLOOD WITH NO REACTION) (BISHNU MARK MD) Physical Exam Vital Signs Vital Signs - First Documented 10/22/17 11:10 Temp 97.9 Pulse 81 Resp 18 B/P (MAP) 112/81 (91) Pulse Ox 97 (LUCAS ZHAO APRN) Vital Signs Capillary Refill : (BISHNU MARK MD) General Appearance: WD/WN, no apparent distress HEENT: PERRL/EOMI, normal ENT inspection Neck: non-tender, full range of motion Respiratory: normal breath sounds, no respiratory distress, no accessory muscle use Cardiovascular: regular rate, rhythm, no murmur Gastrointestinal: normal bowel sounds, soft, tenderness (epigastric tenderness to palpation) Extremities: normal range of motion, non-tender, normal inspection Neurologic/Psychiatric: alert, normal mood/affect, oriented x 3 Skin: normal color, warm/dry (LUCAS ZHAO APRN) Progress/Results/Core Measures Results/Orders Lab Results Laboratory Tests Test 10/22/17 11:15 Range/Units White Blood Count 4.5 4.3-11.0 10^3/uL Red Blood Count 4.21 L 4.35-5.85 10^6/uL Hemoglobin 14.0 13.3-17.7 G/DL Hematocrit 40 40-54 % Mean Corpuscular Volume 94 80-99 FL Mean Corpuscular Hemoglobin 33 25-34 PG Mean Corpuscular Hemoglobin Concent 35 32-36 G/DL Red Cell Distribution Width 14.6 H 10.0-14.5 % Platelet Count 177 130-400 10^3/uL Mean Platelet Volume 10.0 7.4-10.4 FL Neutrophils (%) (Auto) 66 42-75 % Lymphocytes (%) (Auto) 20 12-44 % Monocytes (%) (Auto) 13 H 0-12 % Eosinophils (%) (Auto) 1 0-10 % Basophils (%) (Auto) 0 0-10 % Neutrophils # (Auto) 3.0 1.8-7.8 X 10^3 Lymphocytes # (Auto) 0.9 L 1.0-4.0 X 10^3 Monocytes # (Auto) 0.6 0.0-1.0 X 10^3 Eosinophils # (Auto) 0.0 0.0-0.3 10^3/uL Basophils # (Auto) 0.0 0.0-0.1 10^3/uL D-Dimer 0.66 H 0.00-0.49 UG/ML Sodium Level 133 L 135-145 MMOL/L Potassium Level 4.8 3.6-5.0 MMOL/L Chloride Level 99 98-107 MMOL/L Carbon Dioxide Level 25 21-32 MMOL/L Anion Gap 9 5-14 MMOL/L Blood Urea Nitrogen 19 H 7-18 MG/DL Creatinine 1.00 0.60-1.30 MG/DL Estimat Glomerular Filtration Rate > 60 BUN/Creatinine Ratio 19 Glucose Level 111 H 70-105 MG/DL Calcium Level 9.5 8.5-10.1 MG/DL Total Bilirubin 0.6 0.1-1.0 MG/DL Aspartate Amino Transf (AST/SGOT) 27 5-34 U/L Alanine Aminotransferase (ALT/SGPT) 20 0-55 U/L Alkaline Phosphatase 76 40-136 U/L Total Protein 5.9 L 6.4-8.2 GM/DL Albumin 3.9 3.2-4.5 GM/DL Lipase 39 8-78 U/L (LUCAS ZHAO APRN) My Orders Orders - LUCAS ZHAO APRN Iv Heplock-Insert (Order) (10/22/17 11:14) Iohexol Injection (Omnipaque 350 Mg/Ml 1 (10/22/17 12:00) Ns (Ivpb) (Sodium Chloride 0.9% Ivpb Bag (10/22/17 12:00) Us Hepatic (Liver)[id number] (10/22/17 12:21) Fibrin Degradation Products (10/22/17 12:23) (LUCAS ZHAO APRN) Medications Given in ED Current Medications Medications Dose Ordered Sig/Niall Route Start Time Stop Time Status Last Admin Dose Admin Al Hydrox/Mg Hydrox/Simethicone 30 ml ONCE ONCE PO 10/22/17 11:15 10/22/17 11:16 DC 10/22/17 11:25 30 ML Lidocaine HCl 5 ml ONCE ONCE PO 10/22/17 11:15 10/22/17 11:16 DC 10/22/17 11:25 5 ML (LUCAS ZHAO APRN) Vital Signs/I&O 10/22/17 11:10 Temp 97.9 Pulse 81 Resp 18 B/P (MAP) 112/81 (91) Pulse Ox 97 (LUCAS ZHAO APRN) Diagnostic Imaging Diagonstic Imaging: CT Comments NAME: JENIFER BORJAS [facility] REC#: [id number] PT STATUS: REG ER : 1930 PHYSICIAN: BISHNU MARK MD ADMIT DATE: 10/22/17/ER Draft Date of Exam:10/22/17 CT ABDOMEN/PELVIS W PROCEDURE: CT abdomen and pelvis with contrast. TECHNIQUE: Multiple contiguous axial images were obtained through the abdomen and pelvis after administration of intravenous contrast. Indication: Upper abdominal pain with constipation for 4 months. Comparison: 09/10/2017. Discussion: The lung bases are well-aerated. Normal heart size. No pleural or pericardial fluid. The gallbladder, liver, pancreas, spleen, and adrenal glands are unremarkable. Stomach appears within normal limits. Mild heterogenous appearance of the main portal vein is likely due to mixing artifact though an underlying partially occluding thrombus cannot be entirely excluded. The aorta is normal in caliber and contains mild atherosclerotic plaque. No renal stone or hydronephrosis. There is gas and stool noted within the colon. No significant constipation identified. No obstruction, pneumatosis, pneumoperitoneum. No ascites or pathologically enlarged lymph nodes identified. Mild bladder wall thickening is stable. Prostatomegaly is again noted. Degenerative disease is present within the lumbar spine, stable. No acute osseous abnormality. Impression: 1. Heterogenous appearance of the main portal vein could be due to mixing artifact or nonocclusive thrombus. This could be further evaluated with ultrasound as clinically indicated. 2. Additional chronic changes as discussed. No acute abnormality identified otherwise. Dictated on workstation # [id number] Dict: 10/22/17 1208 Trans: 10/22/17 1216 KENNEDY [id number] Interpreted by: FRANCESCO REINOSO MD Electronically signed by: (LUCAS ZHAO APRN) Departure Communication (Admissions) ultrasound of the liver shows no evidence of portal vein thrombosis per aeronautical engineering technologist.his pain did improve with the GI cocktail. I'll place him on a PPI and Carafate. (LUCAS ZHAO APRN) Impression Primary Impression: Gastritis Disposition: 01 HOME, SELF-CARE Condition: Stable Departure-Patient Inst. Decision time for Depature: 13:21 (LUCAS ZHAO APRN) Referrals: DAYDAY JACQUES MD (PCP/Family) Primary Care Physician Patient Instructions: Gastritis Add. Discharge Instructions: 1. Medication as directed 2. Return to ER for worsening pain or other concerns 3. Follow-up with your doctor later next week for recheck.All discharge instructions reviewed with patient and/or family. Voiced understanding. Scripts Sucralfate (Carafate) 1 Gm Tablet 1 GM PO ACHS, #40 TAB makes with 2 teaspoon of water to dissolve into a slurry. Alternatively, may swallow the tablet in solid form Prov: LUCAS ZHAO APRN 10/22/17 Pantoprazole Sodium (Protonix) 40 Mg Tablet. 40 MG PO DAILY, #20 TAB Prov: LUCAS ZHAO APRN 10/22/17 BISHNU MARK MD Oct 22, 2017 11:12 LUCAS ZHAO APRN Oct 22, 2017 11:17
[2017-10-22] MEDS ORDERED: ANTACID SUSP 30 ML UDC (MYLANTA) PO ONE (11:15)
[2017-10-22] MEDS ORDERED: LIDOCAINE 2% VISCOUS 15 ML UDC PO ONE (11:15)
--- OUTSIDE RECORDS SUMMARY | 2017-10-22 11:17 | XMS REPORT | Continuity of Care Document ---
Author Author [facility] Address Unknown Phone Unavailable Allergies Active Description Code Type Severity Reaction Onset Reported/Identified Relationship to Patient Clinical Status Yes Toradol Drug Allergy 03/28/2012 Yes Toradol Drug Allergy N/A N/A 03/28/2012 Yes butorphanol [id number] Drug Allergy Unknown N/A 08/22/2017 Yes ketorolac [id number] Drug Allergy Mild STATES CAUSES M 08/22/2017 Medications There is no data. Problems Date Dx Coded Attending Type Code Diagnosis Diagnosed By 04/07/1127 DAYDAY JACQUES MD Ot M54.5 LOW BACK PAIN 04/07/1127 DAYDAY JACQUES MD Ot M54.6 PAIN IN THORACIC SPINE 04/07/1127 DAYDAY JACQUES MD Ot M79.602 PAIN IN LEFT ARM 02/02/2008 ORACIO JACKSON DO 300.00 AN ANXIETY UNSPEC 02/02/2008 ORACIO JACKSON DO 307.47 SI DYSSOMNIA NOS 02/02/2008 300.00 AN ANXIETY UNSPEC 02/02/2008 307.47 SI DYSSOMNIA NOS 02/02/2008 300.00 AN ANXIETY UNSPEC 02/02/2008 307.47 SI DYSSOMNIA NOS 11/20/2010 Ot 272.4 HYPERLIPIDEMIA NEC/NOS 11/20/2010 Ot 300.00 ANXIETY STATE NOS 11/20/2010 Ot 401.9 HYPERTENSION NOS 11/20/2010 Ot 414.01 CORONARY ATHEROSCLEROSIS OF [place] CORON 11/20/2010 Ot 414.8 CHR ISCHEMIC HRT [...] 01/25/2011 Ot 996.74 OTH COMPL DUE TO OTH VASCULAR DEVICE,IMP 03/29/2011 Ot 787.02 NAUSEA ALONE 03/29/2011 Ot 787.99 OTHER GI SYSTEM SYMPTOMS 03/29/2011 Ot 789.00 ABDOMINAL PAIN, UNSPECIFIED SITE 12/01/2011 Ot 272.4 HYPERLIPIDEMIA NEC/NOS 12/01/2011 Ot 300.00 ANXIETY STATE NOS 12/01/2011 Ot 311 DEPRESSIVE DISORDER NEC 12/01/2011 Ot 331.83 MILD COGNITIVE IMPAIRMENT, SO STATED 12/01/2011 Ot 401.9 HYPERTENSION NOS 12/01/2011 Ot 414.01 CORONARY ATHEROSCLEROSIS OF [place] CORON 12/01/2011 Ot 564.00 UNSPEC CONSTIPATION 12/01/2011 [...] OTHER GI SYSTEM SYMPTOMS 10/17/2014 RAMA PAGAN [employer] SERVICES SALES REPRESENTATIVE Ot 789.00 10/29/2014 RAMA PAGAN [employer] SALES REPRESENTATIVE Ot 789.00 12/20/2014 IRISH GRIMES, HARPAL Valdez Ot 600.00 12/20/2014 IRISH GRIMES, HARPAL Valdez Ot V72.63 12/20/2014 IRISH GRIMES, HARPAL Valdez Ot V74.8 12/26/2014 IRISH GRIMES, HARPAL Valdez Ot 414.00 CORON ATHEROSCLER NOS TYPE VESSEL, NATIV 12/26/2014 IRISH GRIMES, HARPAL Valdez Ot 600.00 HYPERTROPHY (BENIGN) OF PROSTATE W/O URI 01/08/2015 IRISH GRIMES, HARPAL A Ot 600.00 01/08/2015 IRISH GRIMES, HARPAL A Ot V72.63 01/08/2015 IRISH GRIMES, HARPAL A Ot V74.8 01/16/2015 IRISH GRIMES, HARPAL A Ot 600.00 01/16/2015 HARPAL COBURN MD Ot V72.63 01/16/2015 HARPAL COBURN MD Ot V74.8 01/26/2016 Ot 427.9 CARDIAC DYSRHYTHMIA NOS 01/26/2016 Ot 790.5 ABN SERUM ENZY LEVEL NEC 01/26/2016 Ot 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 01/26/2016 Ot 603.9 HYDROCELE NOS 01/26/2016 Ot 401.9 HYPERTENSION NOS 01/26/2016 Ot 414.01 CORONARY ATHEROSCLEROSIS OF [place] CORON 01/26/2016 Ot 443.9 PERIPH VASCULAR DIS NOS 01/26/2016 Ot 787.02 NAUSEA ALONE 01/26/2016 Ot 787.99 OTHER GI SYSTEM SYMPTOMS 01/26/2016 Ot 789.00 ABDOMINAL PAIN, UNSPECIFIED SITE 01/26/2016 Ot 414.00 CORON ATHEROSCLER NOS TYPE VESSEL, NATIV 01/26/2016 Ot 998.12 HEMATOMA COMPLIC A PROC 01/26/2016 KAREEM CISNEROS DO Ot 786.2 COUGH 01/26/2016 ANJALI GRIMES FACC, ALI FACP CCDS Ot 414.00 CORON ATHEROSCLER NOS TYPE VESSEL, NATIV 01/26/2016 ANJALI GRIMES FACC, ALI FACP CCDS Ot 427.89 CARDIAC DYSRHYTHMIAS NEC 01/26/2016 ANJALI GRIMES FACC, ALI FACP CCDS Ot 434.91 CEREBRAL ART OCCLUSION NOS W CEREBRAL IN 01/26/2016 ANJALI GRIMES FACC, ALI FACP CCDS Ot 440.9 ATHEROSCLEROSIS NOS 01/26/2016 RAMA PAGAN [employer] SALES REPRESENTATIVE Ot 786.2 COUGH 01/26/2016 RAMA PAGAN [employer] SALES REPRESENTATIVE Ot 789.00 ABDOMINAL PAIN, UNSPECIFIED SITE 01/26/2016 HUGO GRIMES, OLIVER Sutton Ot V72.84 EXAM PRE-OPERATIVE NOS 01/26/2016 HARPAL COBURN MD Ot 600.00 HYPERTROPHY (BENIGN) OF PROSTATE W/O URI 01/26/2016 HARPAL COBURN MD Ot V72.63 PRE-PROCEDURAL LABORATORY EXAMINATION 01/26/2016 HARPAL COBURN MD Ot V74.8 SCREEN-BACTERIAL DIS NEC 01/28/2016 DAYDAY JACQUES MD Ot E86.0 DEHYDRATION 02/18/2016 DAYDAY JACQUES MD Ot E86.0 DEHYDRATION 02/26/2016 DAYDAY JACQUES MD Ot E86.0 DEHYDRATION 03/24/2016 GALE MAY Ot E78.4 OTHER HYPERLIPIDEMIA 03/24/2016 GALE MAY Ot I25.10 ATHSCL HEART DISEASE OF [place] CORONARY 04/12/2016 ALYSA ARCHIBALD MD, Ot M70.21 OLECRANON BURSITIS, RIGHT ELBOW 04/12/2016 ALYSA ARCHIBALD MD, Ot Z01.818 ENCOUNTER FOR OTHER PREPROCEDURAL EXAMIN 04/12/2016 ALYSA ARCHIBALD MD, Ot Z11.2 ENCOUNTER FOR SCREENING FOR OTHER BACTER 04/13/2016 GALE MAY Ot E78.4 OTHER HYPERLIPIDEMIA 04/13/2016 GALE MAY Ot I25.10 ATHSCL HEART DISEASE OF [place] CORONARY 04/14/2016 ALYSA ARCHIBALD MD, Ot E78.5 HYPERLIPIDEMIA, UNSPECIFIED 04/14/2016 ALYSA ARCHIBALD MD Ot F41.9 ANXIETY DISORDER, UNSPECIFIED 04/14/2016 ALYSA ARCHIBALD MD Ot I10 ESSENTIAL (PRIMARY) HYPERTENSION 04/14/2016 ALYSA ARCHIBALD MD Ot I25.10 ATHSCL HEART DISEASE OF [place] CORONARY 04/14/2016 AYLSA ARCHIBALD MD Ot 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 04/14/2016 ALYSA ARCHIBALD MD, Ot K57.90 DVRTCLOS OF INTEST, PART UNSP, W/O PERF 04/14/2016 ALYSA ARCHIBALD MD Ot M19.90 UNSPECIFIED OSTEOARTHRITIS, UNSPECIFIED 04/14/2016 ALYSA ARCHIBALD MD, Ot M70.21 OLECRANON BURSITIS, RIGHT ELBOW 04/14/2016 ALYSA ARCHIBALD MD, Ot Z79.899 OTHER VEGETABLE PREPARER (CURRENT) DRUG THERAPY 04/14/2016 ALYSA ARCHIBALD MD, Ot Z86.73 PRSNL HX OF TIA (TIA), AND CEREB INFRC W 04/15/2016 ALYSA ARCHIBALD MD Ot E78.5 HYPERLIPIDEMIA, UNSPECIFIED 04/15/2016 ALYSA ARCHIBALD MD Ot F41.9 ANXIETY DISORDER, UNSPECIFIED 04/15/2016 ALYSA ARCHIBALD MD Ot I10 ESSENTIAL (PRIMARY) HYPERTENSION 04/15/2016 ALYSA ARCHIBALD MD, Ot I25.10 ATHSCL HEART DISEASE OF [place] CORONARY 04/15/2016 ALYSA ARCHIBALD MD, Ot 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 04/15/2016 ALYSA ARCHIBALD MD, Ot K57.90 DVRTCLOS OF INTEST, PART UNSP, W/O PERF 04/15/2016 ALYSA ARCHIBALD MD, Ot M19.90 UNSPECIFIED OSTEOARTHRITIS, UNSPECIFIED 04/15/2016 ALYSA ARCHIBALD MD, Ot M70.21 OLECRANON BURSITIS, RIGHT ELBOW 04/15/2016 ALYSA ARCHIBALD MD, Ot Z79.899 OTHER VEGETABLE PREPARER (CURRENT) DRUG THERAPY 04/15/2016 ALYSA ARCHIBALD MD, Ot Z86.73 PRSNL HX OF TIA (TIA), AND CEREB INFRC W 04/18/2016 ALYSA ARCHIBALD MD, Ot M70.21 OLECRANON BURSITIS, RIGHT ELBOW 04/18/2016 ALYSA ARCHIBALD MD, Ot Z01.818 ENCOUNTER FOR OTHER PREPROCEDURAL EXAMIN 04/18/2016 ALYSA ARCHIBALD MD, Ot Z11.2 ENCOUNTER FOR SCREENING FOR OTHER BACTER 04/21/2016 GALE MAY BUSINESS SERVICES SALES REPRESENTATIVE Ot E78.4 OTHER HYPERLIPIDEMIA 04/21/2016 GALE MAY [employer] SERVICES SALES REPRESENTATIVE Ot I25.10 ATHSCL HEART DISEASE OF [place] CORONARY 11/08/2016 LUCAS CALLES APRN Ot B30.9 [...] CONGESTION 11/08/2016 LUCAS CALLES APRN Ot Z79.82 VEGETABLE PREPARER (CURRENT) USE OF ASPIRIN 11/08/2016 LUCAS CALLES [...] GASTRO-ESOPHAGEAL REFLUX DISEASE WITHOUT 11/10/2016 LUCAS CALLES APRN Ot M19.90 UNSPECIFIED OSTEOARTHRITIS, UNSPECIFIED 11/10/2016 LUCAS CALLES APRN Ot N40.1 BENIGN PROSTATIC HYPERPLASIA WITH LOWER 11/10/2016 LUCAS CALLES APRN Ot R09.81 NASAL CONGESTION 11/10/2016 LUCAS CALLES APRN Ot Z79.82 SENIOR CARE (CURRENT) USE OF ASPIRIN 11/10/2016 LUCAS CALLES APRN Ot Z86.73 PRSNL HX OF TIA (TIA), AND CEREB INFRC W 11/10/2016 LUCAS CALLES APRN Ot Z95.5 PRESENCE OF CORONARY ANGIOPLASTY IMPLANT 11/12/2016 [employer] OFFICER Ot R05 COUGH 12/03/2016 [employer] OFFICER Ot R05 COUGH 12/10/2016 [employer]YA [employer] OFFICER Ot R05 COUGH 12/31/2016 DAYDAY JACQUES MD Ot R09.82 POSTNASAL DRIP 12/31/2016 DAYDAY JACQUES [...] MD Ot I25.10 ATHSCL HEART DISEASE OF [place] CORONARY 03/09/2017 SEJAL WILSON MD Ot M19.90 UNSPECIFIED OSTEOARTHRITIS, UNSPECIFIED 03/09/2017 SEJAL WILSON MD Ot N40.0 BENIGN PROSTATIC HYPERPLASIA WITHOUT LOW 03/09/2017 SEJAL WILSON MD Ot S01.512A LACERATION WITHOUT FOREIGN BODY OF ORAL 03/09/2017 SEJAL WILSON MD Ot X58.XXXA EXPOSURE TO OTHER SPECIFIED FACTORS, INI 03/09/2017 SEJAL WILSON MD Ot Z23 ENCOUNTER FOR IMMUNIZATION 03/09/2017 SEJAL WILSON MD Ot Z79.02 VEGETABLE PREPARER (CURRENT) USE OF ANTITHROMBOTI 03/09/2017 SEJAL WILSON MD Ot Z79.82 SENIOR CARE (CURRENT) USE OF ASPIRIN 03/09/2017 SEJAL WILSON MD Ot Z90.89 ACQUIRED ABSENCE OF OTHER ORGANS 03/09/2017 SEJAL WILSON MD Ot Z95.5 PRESENCE OF CORONARY ANGIOPLASTY IMPLANT 03/15/2017 SEJAL WILSON MD Ot E78.00 PURE HYPERCHOLESTEROLEMIA, UNSPECIFIED 03/15/2017 SEJAL WILSON MD Ot F03.90 UNSPECIFIED DEMENTIA 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L 03/15/2017 SEJAL WILSON MD Ot I10 ESSENTIAL (PRIMARY) HYPERTENSION 03/15/2017 SEJAL WILSON MD Ot I25.10 ATHSCL HEART DISEASE OF [place] CORONARY 03/15/2017 SEJAL WILSON MD Ot M19.90 UNSPECIFIED OSTEOARTHRITIS, UNSPECIFIED 03/15/2017 SEJAL WILSON MD Ot N40.0 BENIGN PROSTATIC HYPERPLASIA WITHOUT LOW 03/15/2017 SEJAL WILSON MD Ot S01.512A LACERATION WITHOUT FOREIGN BODY OF ORAL 03/15/2017 SEJAL WILSON MD Ot X58.XXXA EXPOSURE TO OTHER SPECIFIED FACTORS, INI 03/15/2017 SEJAL WILSON MD Ot Z79.02 VEGETABLE PREPARER (CURRENT) USE OF ANTITHROMBOTI 03/15/2017 SEJAL WILSON MD Ot Z79.82 SENIOR CARE (CURRENT) USE OF ASPIRIN 03/15/2017 SEJAL WILSON MD Ot Z90.89 ACQUIRED ABSENCE OF OTHER ORGANS 03/15/2017 SEJAL WILSON MD Ot Z95.5 PRESENCE OF CORONARY ANGIOPLASTY IMPLANT 03/25/2017 ANJALI GRIMES FACC, ALI FACP CCDS Ot E78.4 OTHER HYPERLIPIDEMIA 03/25/2017 ANJALI GRIMES FAC, ALI FACP CCDS Ot I25.10 ATHSCL HEART DISEASE OF [place] CORONARY 03/25/2017 ANJALI GRIMES FACC, ALI FACP CCDS Ot 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 03/25/2017 ANJALI GRIMES FACC, ALI FACP CCDS Ot R00.1 BRADYCARDIA, UNSPECIFIED 03/25/2017 ANJALI GRIMES FAC, ALI FACP CCDS Ot Z86.79 PERSONAL HISTORY OF OTHER DISEASES OF 04/01/2017 ANJALI GRIMES FACC, ALI FACP CCDS Ot E78.4 OTHER HYPERLIPIDEMIA 04/01/2017 ANJALI GRIMES FAC, ALI FACP CCDS Ot I25.10 ATHSCL HEART DISEASE OF [place] CORONARY 04/01/2017 ANJALI GRIMES FAC, ALI FACP CCDS Ot 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 04/01/2017 ANJALI GRIMES [facility], ALI FACP CCDS Ot R00.1 BRADYCARDIA, UNSPECIFIED 04/01/2017 ANJALI GRIMES [facility], ALI FACP CCDS Ot Z86.79 PERSONAL HISTORY OF OTHER DISEASES OF 06/07/2017 IRISH GRIMES, HARPAL Valdez Ot C61 MALIGNANT NEOPLASM OF PROSTATE 06/10/2017 HARPAL COBURN MD Ot C61 MALIGNANT NEOPLASM OF PROSTATE 06/25/2017 JOANIE DO, ZAYDA K Ot C61 MALIGNANT NEOPLASM OF PROSTATE 06/25/2017 JOANIE DO, ZAYDA K Ot E78.00 PURE HYPERCHOLESTEROLEMIA, UNSPECIFIED 06/25/2017 JOANIE DO, ZAYDA K Ot F03.90 UNSPECIFIED DEMENTIA 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L 06/25/2017 JOANIE DO, ZAYDA K Ot I10 ESSENTIAL (PRIMARY) HYPERTENSION 06/25/2017 JOANIE DO, ZAYDA K Ot I25.10 ATHSCL HEART DISEASE OF [place] CORONARY 06/25/2017 JOANIE DO ZAYDA K Ot 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 06/25/2017 JOANIE DO, ZAYDA K Ot K59.00 CONSTIPATION, UNSPECIFIED 06/25/2017 JOANIE DO, ZAYDA K Ot N40.1 BENIGN PROSTATIC HYPERPLASIA WITH LOWER 06/25/2017 JOANIE DO, ZAYDA K Ot R07.9 CHEST PAIN, UNSPECIFIED 06/25/2017 JOANIE DO ZAYDA K Ot Z79.82 SENIOR CARE (CURRENT) USE OF ASPIRIN 06/25/2017 GIRMA NAIR DOA K Ot Z86.73 PRSNL HX OF TIA (TIA), AND CEREB INFRC W 06/25/2017 JOANIE MEDEIROS ZAYDA K Ot Z87.19 PERSONAL HISTORY OF OTHER DISEASES OF TH 06/25/2017 ZAYDA NAIR DO K Ot Z90.79 ACQUIRED ABSENCE OF OTHER GENITAL ORGAN( 06/25/2017 JOANIE MEDEIROS ZAYDA K Ot Z90.89 ACQUIRED ABSENCE OF OTHER ORGANS 06/25/2017 JOANIE ZAYDA K Ot Z95.5 PRESENCE OF CORONARY ANGIOPLASTY IMPLANT 06/26/2017 JOANIE ZAYDA K Ot E78.00 PURE HYPERCHOLESTEROLEMIA, UNSPECIFIED 06/26/2017 JOANIE DO ZAYDA K Ot I10 ESSENTIAL (PRIMARY) HYPERTENSION 06/26/2017 JOANIE MEDEIROS ZAYDA K Ot I25.10 ATHSCL HEART DISEASE OF [place] CORONARY 06/26/2017 JOANIE MEDEIROS ZAYDA K Ot 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 06/26/2017 JOANIE MEDEIROS ZAYDA K Ot K59.00 CONSTIPATION, UNSPECIFIED 06/26/2017 JOANIE ZAYDA K Ot Z79.82 SENIOR CARE (CURRENT) USE OF ASPIRIN 06/26/2017 JOANIE MEDEIROS ZAYDA K Ot Z85.46 PERSONAL HISTORY OF MALIGNANT NEOPLASM O 06/26/2017 JOANIE MEDEIROS ZAYDA K Ot Z86.73 PRSNL HX OF TIA (TIA), AND CEREB INFRC W 06/26/2017 JOANIE MEDEIROS ZAYDA K Ot Z87.19 PERSONAL HISTORY OF OTHER DISEASES OF 06/26/2017 GIRMA NAIR DOA K Ot Z88.6 ALLERGY STATUS TO ANALGESIC AGENT STATUS 06/26/2017 JOANIE MEDEIROS ZAYDA K Ot Z88.8 ALLERGY STATUS TO OTH DRUG/MEDS/BIOL SUB 06/26/2017 JOANIE MEDEIROS ZAYDA K Ot Z90.89 ACQUIRED ABSENCE OF OTHER ORGANS 06/26/2017 JOANIE ZAYDA K Ot Z95.5 PRESENCE OF CORONARY ANGIOPLASTY IMPLANT 06/28/2017 JOANIE ZAYDA K Ot E78.00 PURE HYPERCHOLESTEROLEMIA, UNSPECIFIED 06/28/2017 JOANIE ZAYDA K Ot I10 ESSENTIAL (PRIMARY) HYPERTENSION 06/28/2017 ZAYDA NAIR DO Ot I25.10 ATHSCL HEART DISEASE OF [place] CORONARY 06/28/2017 ZAYDA NAIR DO Ot 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 06/28/2017 ZAYDA NAIR DO Ot K59.00 CONSTIPATION, UNSPECIFIED 06/28/2017 ZAYDA NAIR DO Ot Z79.82 VEGETABLE PREPARER (CURRENT) USE OF ASPIRIN 06/28/2017 ZAYDA NAIR DO Ot Z85.46 PERSONAL HISTORY OF MALIGNANT NEOPLASM O 06/28/2017 ZAYDA NAIR DO Ot Z86.73 PRSNL HX OF TIA (TIA), AND CEREB INFRC W 06/28/2017 ZAYDA NAIR DO Ot Z87.19 PERSONAL HISTORY OF OTHER DISEASES OF TH 06/28/2017 ZAYDA NAIR DO Ot Z88.6 ALLERGY STATUS TO ANALGESIC AGENT STATUS 06/28/2017 ZAYDA NAIR DO Ot Z88.8 ALLERGY STATUS TO OTH DRUG/MEDS/BIOL SUB 06/28/2017 ZAYDA NAIR DO Ot Z90.89 ACQUIRED ABSENCE OF OTHER ORGANS 06/28/2017 ZAYDA NAIR DO Ot Z95.5 PRESENCE OF CORONARY ANGIOPLASTY IMPLANT 07/03/2017 [employer] OFFICER Ot K59.00 CONSTIPATION, UNSPECIFIED 07/12/2017 [employer] OFFICER Ot R10.9 UNSPECIFIED ABDOMINAL PAIN 07/16/2017 COSKAREEM NORRIS DO L Ot 786.2 COUGH 07/16/2017 ANJALI GRIMES FACC, ALI FACP CCDS Ot 414.00 CORON ATHEROSCLER NOS TYPE VESSEL, NATIV 07/16/2017 ANJALI GRIMES FACC, ALI FACP CCDS Ot 427.89 CARDIAC DYSRHYTHMIAS NEC 07/16/2017 ANJALI GRIMES FACC, ALI FACP CCDS Ot 434.91 CEREBRAL ART OCCLUSION NOS W CEREBRAL IN 07/16/2017 ANJALI GRIMES FACC, ALI FACP CCDS Ot 440.9 ATHEROSCLEROSIS NOS 07/16/2017 RAMA PAGAN [employer] SERVICES SALES REPRESENTATIVE Ot 786.2 COUGH 07/16/2017 RAMA PAGAN [employer] SALES REPRESENTATIVE Ot 789.00 ABDOMINAL PAIN, UNSPECIFIED SITE 07/16/2017 HUGO GRIMES, OLIVER Sutton Ot V72.84 EXAM PRE-OPERATIVE NOS 07/16/2017 HARPAL COBURN MD Ot 600.00 HYPERTROPHY (BENIGN) OF PROSTATE W/O URI 07/16/2017 HARPAL COBURN MD Ot V72.63 PRE-PROCEDURAL LABORATORY EXAMINATION 07/16/2017 HARPAL COBURN MD Ot V74.8 SCREEN-BACTERIAL DIS NEC 07/16/2017 GEORGIE GRIMES, DAYDAY Valdez Ot E86.0 DEHYDRATION 07/16/2017 GALE MAY BUSINESS SERVICES SALES REPRESENTATIVE Ot E78.4 OTHER HYPERLIPIDEMIA 07/16/2017 GALE MAY [employer] SERVICES SALES REPRESENTATIVE Ot I25.10 ATHSCL HEART DISEASE OF [place] CORONARY 07/16/2017 [employer]YA [employer] OFFICER Ot R05 COUGH 07/16/2017 DAYDAY JACQUES MD Ot R09.82 POSTNASAL DRIP 07/16/2017 DAYDAY JACQUES MD Ot R93.8 ABNORMAL FINDINGS ON DIAGNOSTIC IMAGING 07/16/2017 ANJALI GRIMES FACC, ALI FACP CCDS Ot E78.4 OTHER HYPERLIPIDEMIA 07/16/2017 ANJALI GRIMES FACC, ALI FACP CCDS Ot I25.10 ATHSCL HEART DISEASE OF [place] CORONARY 07/16/2017 ANJALI GRIMES FACC, ALI FACP CCDS Ot 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 07/16/2017 ANJALI GRIMES FACC, ALI FACP CCDS Ot R00.1 BRADYCARDIA, UNSPECIFIED 07/16/2017 ANJALI GRIMES FACC, ALI FACP CCDS Ot Z86.79 PERSONAL HISTORY OF OTHER DISEASES OF TH 07/16/2017 HARPAL COBURN MD Ot C61 MALIGNANT NEOPLASM OF PROSTATE 07/16/2017 [employer] OFFIC[employer] Ot K59.00 CONSTIPATION, UNSPECIFIED 07/16/2017 [employer] OFFICER Ot R10.9 UNSPECIFIED ABDOMINAL PAIN 07/19/2017 [employer] OFFICER Ot R10.9 UNSPECIFIED ABDOMINAL PAIN 07/29/2017 [employer] OFFICER Ot K59.00 CONSTIPATION, UNSPECIFIED 08/01/2017 [employer] OFFICER Ot K59.00 CONSTIPATION, UNSPECIFIED 08/02/2017 [employer] OFFICER Ot R10.9 UNSPECIFIED ABDOMINAL PAIN 08/09/2017 [employer] OFFICER Ot R10.9 UNSPECIFIED ABDOMINAL PAIN 08/09/2017 [employer] OFFICER Ot R10.9 UNSPECIFIED ABDOMINAL PAIN 08/11/2017 [employer] OFFICER Ot R10.9 UNSPECIFIED ABDOMINAL PAIN 08/12/2017 HUGO GRIMES, OLIVER Sutton Ot 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 08/12/2017 HUGO GRIMES, OLIVER Sutton Ot 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 08/17/2017 KAREEM CISNEROS DO L Ot 786.2 COUGH 08/17/2017 ANJALI GRIMES FAC, ALI FACP CCDS Ot 414.00 CORON ATHEROSCLER NOS TYPE VESSEL, NATIV 08/17/2017 ANJALI GRIMES FACC, ALI FACP CCDS Ot 427.89 CARDIAC DYSRHYTHMIAS NEC 08/17/2017 ANJALI LIRAC, ALI FACP CCDS Ot 434.91 CEREBRAL ART OCCLUSION NOS W CEREBRAL IN 08/17/2017 ANJALI LIRAC, ALI FACP CCDS Ot 440.9 ATHEROSCLEROSIS NOS 08/17/2017 RAMA PAGAN [employer] SALES REPRESENTATIVE Ot 786.2 COUGH 08/17/2017 RAMA PAGAN [employer] SALES REPRESENTATIVE Ot 789.00 ABDOMINAL PAIN, UNSPECIFIED SITE 08/17/2017 HUGO GRIMES, OLIVER Sutton Ot V72.84 EXAM PRE-OPERATIVE NOS 08/17/2017 IRISH GRIMES, HARPAL Valdez Ot 600.00 HYPERTROPHY (BENIGN) OF PROSTATE W/O URI 08/17/2017 HARPAL COBURN MD Ot V72.63 PRE-PROCEDURAL LABORATORY EXAMINATION 08/17/2017 HARPAL COBURN MD Ot V74.8 SCREEN-BACTERIAL DIS NEC 08/17/2017 DAYDAY JACQUES MD Ot E86.0 DEHYDRATION 08/17/2017 GALE MAY [employer] SALES REPRESENTATIVE Ot E78.4 OTHER HYPERLIPIDEMIA 08/17/2017 GALE MAY [employer] SERVICES SALES REPRESENTATIVE Ot I25.10 ATHSCL HEART DISEASE OF [place] CORONARY 08/17/2017 [employer] OFFICER Ot R05 COUGH 08/17/2017 DAYDAY JACQUES MD Ot R09.82 POSTNASAL DRIP 08/17/2017 DAYDAY JACQUES MD Ot R93.8 ABNORMAL FINDINGS ON DIAGNOSTIC IMAGING 08/17/2017 ANJALI GRIMES FACC, ALI FACP CCDS Ot E78.4 OTHER HYPERLIPIDEMIA 08/17/2017 ANJALI GRIMES FACC, ALI FACP CCDS Ot I25.10 ATHSCL HEART DISEASE OF [place] CORONARY 08/17/2017 ANJALI GRIMES [facility], ALI FACP CCDS Ot 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 08/17/2017 ANJALI GRIMES [facility], ALI FACP CCDS Ot R00.1 BRADYCARDIA, UNSPECIFIED 08/17/2017 ANJALI GRIMES [facility], ALI FACP CCDS Ot Z86.79 PERSONAL HISTORY OF OTHER DISEASES OF TH 08/17/2017 IRISH GRIMES, HARPAL Valdez Ot C61 MALIGNANT NEOPLASM OF PROSTATE 08/17/2017 NATLAYA [employer] OFFICER Ot K59.00 CONSTIPATION, UNSPECIFIED 08/17/2017 [employer] OFFICER Ot R10.9 UNSPECIFIED ABDOMINAL PAIN 08/17/2017 [employer] OFFICER Ot R10.9 UNSPECIFIED ABDOMINAL PAIN 08/17/2017 GEORGIE GRIMES, DAYDAY Valdez Ot M54.5 LOW BACK PAIN 08/17/2017 GEORGIE GRIMES, DAYDAY Valdez Ot M54.6 PAIN IN THORACIC SPINE 08/17/2017 GEORGIE GRIMES, DAYDAY Valdez Ot M79.602 PAIN IN LEFT ARM 08/17/2017 HUGO GRIMES, OLIVER Sutton Ot 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 08/23/2017 OLIVER ARIAS MD Ot R19.5 OTHER FECAL ABNORMALITIES 08/23/2017 OLIVER ARIAS MD Ot R63.4 ABNORMAL WEIGHT LOSS 08/23/2017 OLIVER ARIAS MD Ot Z01.818 ENCOUNTER FOR OTHER PREPROCEDURAL EXAMIN 08/29/2017 OLIVER ARIAS MD Ot E03.9 HYPOTHYROIDISM, UNSPECIFIED 08/29/2017 OLIVER ARIAS MD Ot E78.5 HYPERLIPIDEMIA, UNSPECIFIED 08/29/2017 OLIVER ARIAS MD Ot I25.10 ATHSCL HEART DISEASE OF [place] CORONARY 08/29/2017 OLIVER ARIAS MD Ot K44.9 DIAPHRAGMATIC HERNIA WITHOUT OBSTRUCTION 08/29/2017 OLIVER ARIAS MD Ot K57.30 DVRTCLOS OF LG INT W/O PERFORATION OR AB 08/29/2017 OLIVER ARIAS MD Ot 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 08/29/2017 OLIVER ARIAS MD Ot R19.4 CHANGE IN BOWEL HABIT 08/29/2017 OLIVER ARIAS MD Ot R63.5 ABNORMAL WEIGHT GAIN 08/29/2017 OLIVER ARIAS MD Ot Z79.82 VEGETABLE PREPARER (CURRENT) USE OF ASPIRIN 08/30/2017 OLIVER ARIAS MD Ot E03.9 HYPOTHYROIDISM, UNSPECIFIED 08/30/2017 OLIVER ARIAS MD Ot E78.5 HYPERLIPIDEMIA, UNSPECIFIED 08/30/2017 OLIVER ARIAS MD Ot I25.10 ATHSCL HEART DISEASE OF [place] CORONARY 08/30/2017 OLIVER ARIAS MD Ot K44.9 DIAPHRAGMATIC HERNIA WITHOUT OBSTRUCTION 08/30/2017 OLIVER ARIAS MD Ot K57.30 DVRTCLOS OF LG INT W/O PERFORATION OR AB 08/30/2017 OLIVER ARIAS MD Ot 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 08/30/2017 OLIVER ARIAS MD Ot R19.4 CHANGE IN BOWEL HABIT 08/30/2017 OLIVER ARIAS MD Ot R63.5 ABNORMAL WEIGHT GAIN 08/30/2017 OLIVER ARIAS MD, Ot Z79.82 SENIOR CARE (CURRENT) USE OF ASPIRIN 09/01/2017 OLIVER ARIAS MD Ot 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 09/07/2017 OLIVER ARIAS MD Ot 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 09/09/2017 OLIVER ARIAS MD Ot E03.9 HYPOTHYROIDISM, UNSPECIFIED 09/09/2017 OLIVER ARIAS MD Ot E78.5 HYPERLIPIDEMIA, UNSPECIFIED 09/09/2017 OLIVER ARIAS MD Ot I25.10 ATHSCL HEART DISEASE OF [place] CORONARY 09/09/2017 OLIVER ARIAS MD Ot K44.9 DIAPHRAGMATIC HERNIA WITHOUT OBSTRUCTION 09/09/2017 OLIVER ARIAS MD Ot K57.30 DVRTCLOS OF LG INT W/O PERFORATION OR AB 09/09/2017 OLIVER ARIAS MD Ot 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 09/09/2017 OLIVER ARIAS MD Ot R19.4 CHANGE IN BOWEL HABIT 09/09/2017 OLIVER ARIAS MD Ot R63.5 ABNORMAL WEIGHT GAIN 09/09/2017 OLIVER ARIAS MD Ot Z79.82 SENIOR CARE (CURRENT) USE OF ASPIRIN 09/10/2017 LUIS ENRIQUE GRIMES, AQUILINO Tse Ot E11.9 TYPE 2 DIABETES MELLITUS WITHOUT COMPLIC 09/10/2017 AQUILINO DUDLEY MD Ot E78.00 PURE HYPERCHOLESTEROLEMIA, UNSPECIFIED 09/10/2017 AQUILINO DUDLEY MD Ot E86.0 DEHYDRATION 09/10/2017 AQUILINO DUDLEY MD Ot I10 ESSENTIAL (PRIMARY) HYPERTENSION 09/10/2017 AQUILINO DUDLEY MD Ot I25.10 ATHSCL HEART DISEASE OF [place] CORONARY 09/10/2017 AQUILINO DUDLEY MD Ot 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 09/10/2017 AQUILINO DUDLEY MD Ot R53.1 WEAKNESS 09/10/2017 AQUILINO DUDLEY MD Ot Z79.82 VEGETABLE PREPARER (CURRENT) USE OF ASPIRIN 09/10/2017 AQUILINO DUDLEY MD Ot Z85.46 PERSONAL HISTORY OF MALIGNANT NEOPLASM O 09/10/2017 AQUILINO DUDLEY MD Ot Z86.73 PRSNL HX OF TIA (TIA), AND CEREB INFRC W 09/10/2017 AQUILINO DUDLEY MD Ot Z87.19 PERSONAL HISTORY OF OTHER DISEASES OF TH 09/10/2017 AQUILINO DUDLEY MD Ot Z88.5 ALLERGY STATUS TO NARCOTIC AGENT STATUS 09/10/2017 AQUILINO DUDLEY MD Ot Z88.6 ALLERGY STATUS TO ANALGESIC AGENT STATUS 09/10/2017 AQUILINO DUDLEY MD Ot Z90.79 ACQUIRED ABSENCE OF OTHER GENITAL ORGAN( 09/10/2017 AQUILINO DUDLEY MD Ot Z90.89 ACQUIRED ABSENCE OF OTHER ORGANS 09/10/2017 AQUILINO DUDLEY MD Ot Z95.5 PRESENCE OF CORONARY ANGIOPLASTY IMPLANT 09/12/2017 AQUILINO DUDLEY MD Ot E11.9 TYPE 2 DIABETES MELLITUS WITHOUT COMPLIC 09/12/2017 AQUILINO DUDLEY MD Ot E78.00 PURE HYPERCHOLESTEROLEMIA, UNSPECIFIED 09/12/2017 AQUILINO DUDLEY MD Ot E86.0 DEHYDRATION 09/12/2017 AQUILINO DUDLEY MD Ot I10 ESSENTIAL (PRIMARY) HYPERTENSION 09/12/2017 AQUILINO DUDLEY MD Ot I25.10 ATHSCL HEART DISEASE OF [place] CORONARY 09/12/2017 AQUILINO DUDLEY MD Ot 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 09/12/2017 AQUILINO DUDLEY MD, Ot R53.1 WEAKNESS 09/12/2017 AQUILINO DUDLEY MD, Ot Z79.82 VEGETABLE PREPARER (CURRENT) USE OF ASPIRIN 09/12/2017 AQUILINO DUDLEY MD, Ot Z85.46 PERSONAL HISTORY OF MALIGNANT NEOPLASM O 09/12/2017 AQUILINO DUDLEY MD, Ot Z86.73 PRSNL HX OF TIA (TIA), AND CEREB INFRC W 09/12/2017 AQUILINO DUDLEY MD, Ot Z87.19 PERSONAL HISTORY OF OTHER DISEASES OF TH 09/12/2017 AQUILINO DUDLEY MD, Ot Z88.5 ALLERGY STATUS TO NARCOTIC AGENT STATUS 09/12/2017 AQUILINO DUDLEY MD, Ot Z88.6 ALLERGY STATUS TO ANALGESIC AGENT STATUS 09/12/2017 AQUILINO DUDLEY MD, Ot Z90.79 ACQUIRED ABSENCE OF OTHER GENITAL ORGAN( 09/12/2017 AQUILINO DUDLEY MD, Ot Z90.89 ACQUIRED ABSENCE OF OTHER ORGANS 09/12/2017 AQUILINO DUDLEY MD, Ot Z95.5 PRESENCE OF CORONARY ANGIOPLASTY IMPLANT 09/24/2017 SHU CHEN Ot E78.00 PURE HYPERCHOLESTEROLEMIA, UNSPECIFIED 09/24/2017 SHU CHEN Ot F03.90 UNSPECIFIED DEMENTIA 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L 09/24/2017 SHU CHEN Ot I10 ESSENTIAL (PRIMARY) HYPERTENSION 09/24/2017 SHU CHEN Ot I25.10 ATHSCL HEART DISEASE OF [place] CORONARY 09/24/2017 SHU CHEN Ot 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 09/24/2017 SHU CHEN Ot K31.84 GASTROPARESIS 09/24/2017 SHU CHEN Ot R10.9 UNSPECIFIED ABDOMINAL PAIN 09/24/2017 SHU CHEN Ot Z79.02 VEGETABLE PREPARER (CURRENT) USE OF ANTITHROMBOTI 09/24/2017 SHU CHEN Ot Z79.82 SENIOR CARE (CURRENT) USE OF ASPIRIN 09/24/2017 SHU CHEN Ot Z85.46 PERSONAL HISTORY OF MALIGNANT NEOPLASM O 09/24/2017 SHU CHEN Ot Z86.73 PRSNL HX OF TIA (TIA), AND CEREB INFRC W 09/24/2017 SHU CHEN Ot Z87.19 PERSONAL HISTORY OF OTHER DISEASES OF TH 09/24/2017 SHU CHEN Ot Z88.6 ALLERGY STATUS TO ANALGESIC AGENT STATUS 09/24/2017 SHU CHEN Ot Z88.8 ALLERGY STATUS TO OTH DRUG/MEDS/BIOL SUB 09/24/2017 SHU CHEN Ot Z90.89 ACQUIRED ABSENCE OF OTHER ORGANS 09/24/2017 SHU CHEN Ot Z95.5 PRESENCE OF CORONARY ANGIOPLASTY IMPLANT 09/26/2017 SHU CHEN Ot E78.00 PURE HYPERCHOLESTEROLEMIA, UNSPECIFIED 09/26/2017 SHU CHEN Ot F03.90 UNSPECIFIED DEMENTIA 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L 09/26/2017 SHU CHEN Ot I10 ESSENTIAL (PRIMARY) HYPERTENSION 09/26/2017 SHU CHEN Ot I25.10 ATHSCL HEART DISEASE OF [place] CORONARY 09/26/2017 SHU CHEN Ot 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 09/26/2017 SHU CHEN Ot K31.84 GASTROPARESIS 09/26/2017 SHU CHEN Ot R10.9 UNSPECIFIED ABDOMINAL PAIN 09/26/2017 SHU CHEN Ot Z79.02 VEGETABLE PREPARER (CURRENT) USE OF ANTITHROMBOTI 09/26/2017 SHU CHEN Ot Z79.82 VEGETABLE PREPARER (CURRENT) USE OF ASPIRIN 09/26/2017 SHU CHEN Ot Z85.46 PERSONAL HISTORY OF MALIGNANT NEOPLASM O 09/26/2017 SHU CHEN Ot Z86.73 PRSNL HX OF TIA (TIA), AND CEREB INFRC W 09/26/2017 SHU CHEN Ot Z87.19 PERSONAL HISTORY OF OTHER DISEASES OF TH 09/26/2017 SHU CHEN Ot Z88.6 ALLERGY STATUS TO ANALGESIC AGENT STATUS 09/26/2017 SHU CHEN Ot Z88.8 ALLERGY STATUS TO OTH DRUG/MEDS/BIOL SUB 09/26/2017 SHU CHEN Ot Z90.89 ACQUIRED ABSENCE OF OTHER ORGANS 09/26/2017 PEREZ PA, SHU L Ot Z95.5 PRESENCE OF CORONARY ANGIOPLASTY IMPLANT 09/27/2017 DAYDAY JACQUES MD Ot M54.5 LOW BACK PAIN 09/27/2017 DAYDAY JACQUES MD Ot M54.6 PAIN IN THORACIC SPINE 09/27/2017 DAYDAY JACQUES MD Ot M79.602 PAIN IN LEFT ARM 10/05/2017 DAYDAY JACQUES MD Ot M54.5 LOW BACK PAIN 10/05/2017 DAYDAY JACQUES MD, Ot M54.6 PAIN IN THORACIC SPINE 10/05/2017 DAYDAY JACQUES MD Ot M79.602 PAIN IN LEFT ARM Procedures Code Description Performed By Performed On 00.40 11/30/2011 00.45 11/30/2011 00.66 11/30/2011 36.07 11/30/2011 37.22 11/30/2011 88.53 11/30/2011 88.56 11/30/2011 84038 PSYCH PHARM MGMT 03/29/2012 Results Test Result [...] rate by westergren method 16 mm 0-30 [id number] - 05/12/17 13:06 Serum or plasma urea nitrogen measurement (mass/volume) 18 mg/dL 7-18 Serum or plasma creatinine measurement (mass/volume) 1.04 mg/dL 0.60-1.30 Serum or plasma urea nitrogen/creatinine mass ratio 17 NRG Serum or plasma creatinine measurement with calculation of estimated glomerular filtration rate > NRG Complete blood count (CBC) with automated white blood cell (WBC) differential - 06/25/17 04:30 Blood leukocytes automated count (number/volume) 4.7 10*3/uL 4.3-11.0 Blood erythrocytes automated count (number/volume) 4.15 10*6/uL 4.35-5.85 Venous blood hemoglobin measurement (mass/volume) 13.5 g/dL 13.3-17.7 Blood hematocrit (volume fraction) 38 % 40-54 Automated erythrocyte mean corpuscular volume 91 [foz_us] 80-99 Automated erythrocyte mean corpuscular hemoglobin (mass per erythrocyte) 33 pg 25-34 Automated erythrocyte mean corpuscular hemoglobin concentration measurement ( mass/volume) 36 g/dL 32-36 Automated erythrocyte distribution width ratio 13.9 % 10.0-14.5 Automated blood platelet count (count/volume) 170 10*3/uL 130-400 Automated blood platelet mean volume measurement 10.0 [foz_us] 7.4-10.4 Automated blood neutrophils/100 leukocytes 64 % 42-75 Automated blood lymphocytes/100 leukocytes 21 % 12-44 Blood monocytes/100 leukocytes 14 % 0-12 Automated blood eosinophils/100 leukocytes 1 % 0-10 Automated blood basophils/100 leukocytes 0 % 0-10 Blood neutrophils automated count (number/volume) 3.0 10*3 1.8-7.8 Blood lymphocytes automated count (number/volume) 1.0 10*3 1.0-4.0 Blood monocytes automated count (number/volume) 0.7 10*3 0.0-1.0 Automated eosinophil count 0.0 10*3/uL 0.0-0.3 Automated blood basophil count (count/volume) 0.0 10*3/uL 0.0-0.1 Comprehensive metabolic panel - 06/25/17 04:30 Serum or plasma sodium measurement (moles/volume) 131 mmol/L 135-145 Serum or plasma potassium measurement (moles/volume) 4.2 mmol/L 3.6-5.0 Serum or plasma chloride measurement (moles/volume) 97 mmol/L 98-107 Carbon dioxide 23 mmol/L 21-32 Serum or plasma anion gap determination (moles/volume) 11 mmol/L 5-14 Serum or plasma urea nitrogen measurement (mass/volume) 16 mg/dL 7-18 Serum or plasma creatinine measurement (mass/volume) 0.88 mg/dL 0.60-1.30 Serum or plasma urea nitrogen/creatinine mass ratio 18 NRG Serum or plasma creatinine measurement with calculation of estimated glomerular filtration rate > NRG Serum or plasma glucose measurement (mass/volume) 92 mg/dL 70-105 Serum or plasma calcium measurement (mass/volume) 9.0 mg/dL 8.5-10.1 Serum or plasma total bilirubin measurement (mass/volume) 0.6 mg/dL 0.1-1.0 Serum or plasma alkaline phosphatase measurement (enzymatic activity/volume) 75 U/L 40-136 Serum or plasma aspartate aminotransferase measurement (enzymatic activity/ volume) 29 U/L 5-34 Serum or plasma alanine aminotransferase measurement (enzymatic activity/volume ) 22 U/L 0-55 Serum or plasma protein measurement (mass/volume) 5.5 g/dL 6.4-8.2 Serum or plasma albumin measurement (mass/volume) 3.8 g/dL 3.2-4.5 Serum or plasma troponin i.cardiac measurement (mass/volume) - 06/25/17 04:30 Serum or plasma troponin i.cardiac measurement (mass/volume) < ng/ mL <0.30 Serum or plasma amylase measurement (enzymatic activity/volume) - 06/25/17 04: 30 Serum or plasma amylase measurement (enzymatic activity/volume) 82 U /L 25-125 Lipase - 06/25/17 04:30 Lipase 36 U/L 8-78 Complete urinalysis with reflex to culture - 06/25/17 04:45 Urine color determination YELLOW NRG Urine clarity determination CLEAR NRG Urine pH measurement by test strip 7 5-9 Specific gravity of urine by test strip 1.010 1.016- 1.022 Urine protein assay by test strip, semi-quantitative NEGATIVE NEGATIVE Urine glucose detection by automated test strip NEGATIVE NEGATIVE Erythrocytes detection in urine sediment by light microscopy 1+ NEGATIVE Urine ketones detection by automated test strip NEGATIVE NEGATIVE Urine nitrite detection by test strip NEGATIVE NEGATIVE Urine total bilirubin detection by test strip NEGATIVE NEGATIVE Urine urobilinogen measurement by automated test strip (mass/volume) NORMAL NORMAL Urine leukocyte esterase detection by dipstick NEGATIVE NEGATIVE Automated urine sediment erythrocyte count by microscopy (number/high power field) [HPF] NRG Automated urine sediment leukocyte count by microscopy (number/high power field ) NONE NRG Bacteria detection in urine sediment by light microscopy NEGATIVE NRG Squamous epithelial cells detection in urine sediment by light microscopy RARE NRG Crystals detection in urine sediment by light microscopy NONE NRG Casts detection in urine sediment by light microscopy NONE NRG Mucus detection in urine sediment by light microscopy NEGATIVE NRG Complete urinalysis with reflex to culture NO NRG Complete blood count (CBC) with automated white blood cell (WBC) differential - 09/10/17 14:09 Blood leukocytes automated count (number/volume) 8.4 10*3/uL 4.3-11.0 Blood erythrocytes automated count (number/volume) 3.91 10*6/uL 4.35-5.85 Venous blood hemoglobin measurement (mass/volume) 12.8 g/dL 13.3-17.7 Blood hematocrit (volume fraction) 37 % 40-54 Automated erythrocyte mean corpuscular volume 94 [foz_us] 80-99 Automated erythrocyte mean corpuscular hemoglobin (mass per erythrocyte) 33 pg 25-34 Automated erythrocyte mean corpuscular hemoglobin concentration measurement ( mass/volume) 35 g/dL 32-36 Automated erythrocyte distribution width ratio 14.0 % 10.0-14.5 Automated blood platelet count (count/volume) 163 10*3/uL 130-400 Automated blood platelet mean volume measurement 10.4 [foz_us] 7.4-10.4 Automated blood neutrophils/100 leukocytes 90 % 42-75 Automated blood lymphocytes/100 leukocytes 5 % 12-44 Blood monocytes/100 leukocytes 5 % 0-12 Automated blood eosinophils/100 leukocytes 0 % 0-10 Automated blood basophils/100 leukocytes 0 % 0-10 Blood neutrophils automated count (number/volume) 7.6 10*3 1.8-7.8 Blood lymphocytes automated count (number/volume) 0.4 10*3 1.0-4.0 Blood monocytes automated count (number/volume) 0.4 10*3 0.0-1.0 Automated eosinophil count 0.0 10*3/uL 0.0-0.3 Automated blood basophil count (count/volume) 0.0 10*3/uL 0.0-0.1 Comprehensive metabolic panel - 09/10/17 14:09 Serum or plasma sodium measurement (moles/volume) 132 mmol/L 135-145 Serum or plasma potassium measurement (moles/volume) 4.0 mmol/L 3.6-5.0 Serum or plasma chloride measurement (moles/volume) 100 mmol/L 98-107 Carbon dioxide 23 mmol/L 21-32 Serum or plasma anion gap determination (moles/volume) 9 mmol/L 5-14 Serum or plasma urea nitrogen measurement (mass/volume) 17 mg/dL 7-18 Serum or plasma creatinine measurement (mass/volume) 0.98 mg/dL 0.60-1.30 Serum or plasma urea nitrogen/creatinine mass ratio 17 NRG Serum or plasma creatinine measurement with calculation of estimated glomerular filtration rate > NRG Serum or plasma glucose measurement (mass/volume) 220 mg/dL 70-105 Serum or plasma calcium measurement (mass/volume) 9.0 mg/dL 8.5-10.1 Serum or plasma total bilirubin measurement (mass/volume) 0.5 mg/dL 0.1-1.0 Serum or plasma alkaline phosphatase measurement (enzymatic activity/volume) 75 U/L 40-136 Serum or plasma aspartate aminotransferase measurement (enzymatic activity/ volume) 30 U/L 5-34 Serum or plasma alanine aminotransferase measurement (enzymatic activity/volume ) 17 U/L 0-55 Serum or plasma protein measurement (mass/volume) 5.8 g/dL 6.4-8.2 Serum or plasma albumin measurement (mass/volume) 4.0 g/dL 3.2-4.5 THYROID STIMULATING HORMONE - 09/10/17 14:09 THYROID STIMULATING HORMONE 1.42 u[iU]/mL 0.35-4.94 Serum or plasma C reactive protein measurement (mass/volume) - 09/10/17 14:09 Serum or plasma C reactive protein measurement (mass/volume) 0.03 mg /dL 0.00-0.50 Blood manual differential performed detection - 09/10/17 14:09 Blood monocytes/100 leukocytes 7 % NRG Manual blood segmented neutrophils/100 leukocytes 91 % NRG Blood band neutrophils/100 leukocytes 0 % NRG Manual blood lymphocytes/100 leukocytes 2 % NRG Manual eosinophils/100 leukocytes in nose 0 % NRG Manual blood basophils/100 leukocytes 0 % NRG Blood erythrocyte morphology finding identification NORMAL NRG Hemoglobin A1c - 09/10/17 14:09 Blood hemoglobin A1C measurement (mass/volume) 5.1 % 4.0- 5.6 MEAN BLOOD GLUCOSE 100 % <=126 Complete urinalysis with reflex to culture - 09/10/17 14:46 Urine color determination YELLOW NRG Urine clarity determination CLEAR NRG Urine pH measurement by test strip 6.5 5-9 Specific gravity of urine by test strip 1.015 1.016- 1.022 Urine protein assay by test strip, semi-quantitative 1+ NEGATIVE Urine glucose detection by automated test strip 4+ NEGATIVE Erythrocytes detection in urine sediment by light microscopy 1+ NEGATIVE Urine ketones detection by automated test strip NEGATIVE NEGATIVE Urine nitrite detection by test strip NEGATIVE NEGATIVE Urine total bilirubin detection by test strip NEGATIVE NEGATIVE Urine urobilinogen measurement by automated test strip (mass/volume) NORMAL NORMAL Urine leukocyte esterase detection by dipstick NEGATIVE NEGATIVE Automated urine sediment erythrocyte count by microscopy (number/high power field) RARE NRG Automated urine sediment leukocyte count by microscopy (number/high power field ) NONE NRG Bacteria detection in urine sediment by light microscopy NEGATIVE NRG Squamous epithelial cells detection in urine sediment by light microscopy NONE NRG Crystals detection in urine sediment by light microscopy NONE NRG Casts detection in urine sediment by light microscopy NONE NRG Mucus detection in urine sediment by light microscopy NEGATIVE NRG Complete urinalysis with reflex to culture NO NRG Encounters ACCT No. Visit Date/Time Discharge Status Pt. Type Provider Facility Loc./Unit Complaint [id number] 06/28/2011 13:11:00 06/28/2011 23:59:59 CLS Outpatient MANUEL MEDEIROS [place] [id number] 10/25/2012 14:58:00 Document Registration [id number] 03/28/2012 14:47:00 Document Registration [id number] 09/08/2017 12:57:00 10/06/2017 11:28:00 DIS Outpatient DAYDAY JACQUES MD [facility] REHAB UPPER AND LOWER BACK PAIN; L ARM PAIN [id number] 09/24/2017 19:08:00 09/24/2017 22:26:00 DIS Emergency SHU CHEN [facility] ER ABDOMINAL PROBLEMS [id number] 09/10/2017 13:47:00 09/10/2017 18:08:00 DIS Emergency AQUILINO DUDLEY MD [facility] ER WEAKNESS/ALMOST PASSED OUT [id number] 08/29/2017 08:15:00 08/29/2017 11:30:00 DIS Outpatient OLIVER ARIAS MD [facility] ENDO WT LOSS/IRREG BM [id number] 08/22/2017 05:39:00 08/22/2017 10:10:00 DIS Outpatient OLIVER ARIAS MD [facility] PREOP COLONOSCOPY/EGD [id number] 08/11/2017 13:07:00 08/11/2017 23:59:59 CLS Outpatient OLIVER ARIAS MD [facility] RAD CHRONIC MESENTERIC ISCHEMIA [id number] 07/18/2017 07:47:00 07/18/2017 23:59:59 CLS Outpatient NATALYA MORAN [employer] [facility] RAD ONGOING ABD PAIN [id number] 07/11/2017 07:30:00 07/11/2017 23:59:59 CLS Outpatient NATALYA [employer] [facility] RAD ABD PAIN [id number] 07/06/2017 11:30:00 07/06/2017 23:59:59 CLS Preadmit DAYDAY JACQUES MD [facility] REHAB UPPER AND LOWER BACK PAIN; L ARM PAIN [id number] 07/01/2017 10:58:00 07/01/2017 23:59:59 CLS Outpatient NAT[employer]YA [employer] [facility] RAD R10.9 [id number] 06/26/2017 01:53:00 06/26/2017 05:02:00 DIS Emergency JOANIE DO, ZAYDA K [facility] ER CONSTIPATION [id number] 06/25/2017 04:09:00 06/25/2017 08:07:00 DIS Emergency JOANIE DO, ZAYDA K [facility] ER PAIN [id number] 05/12/2017 11:53:00 05/12/2017 23:59:59 CLS Outpatient HARPAL COBURN MD [facility] RAD PROSTATE CANCER [id number] 03/09/2017 19:36:00 03/09/2017 23:59:59 CLS Emergency SEJAL WILSON MD [facility] ER TONGUE BLEEDING [id number] 03/03/2017 10:37:00 03/03/2017 23:59:59 CLS Outpatient ANJALI GRIMES FACCWILNER FACP CCDS [facility] CARD CAD [id number] 12/01/2016 15:48:00 12/01/2016 23:59:59 CLS Outpatient DAYDAY JACQUES MD [facility] RAD SINUS CONGESTION, ETHMOID SINUS INFLAMMATION [id number] 11/11/2016 14:51:00 11/11/2016 23:59:59 CLS Outpatient NATALYA MORAN APRN [facility] RAD COUGH [id number] 11/08/2016 10:44:00 11/08/2016 12:36:00 DIS Emergency LUCAS CALLES [employer] [facility] ER BLURRED VISION/CONGESTION [id number] 04/14/2016 06:55:00 04/14/2016 13:15:00 DIS Outpatient ALYSA ARCHIBALD MD [facility] RIGHT ELBOW BURSITIS [id number] 04/12/2016 10:07:00 04/12/2016 10:35:00 DIS Outpatient ALYSA ARCHIBALD MD [facility] PREOP RIGHT ELBOW BURSITIS [id number] 03/23/2016 07:31:00 03/23/2016 23:59:59 CLS Outpatient GALE MAY [facility] CARD CAD,HYPERLIPIDEMIA [id number] 01/26/2016 14:36:00 01/26/2016 23:59:59 CLS Outpatient DAYDAY JACQUES MD [facility] DEHYDRATION [id number] 12/24/2014 06:27:00 12/26/2014 16:08:00 DIS Outpatient HARPAL COBURN MD [facility] BPH [id number] 12/19/2014 12:47:00 12/19/2014 23:59:59 CLS Outpatient HARPAL COBURN MD [facility] PREOP BPH [id number] 10/09/2014 13:53:00 10/09/2014 16:23:00 DIS Outpatient OLIVER ARIAS MD [facility] ABD. PAIN; CHANGE IN BOWEL HABITS [id number] 10/03/2014 05:50:00 10/03/2014 23:59:59 CLS Outpatient OLIVER ARIAS MD [facility] PREOP ABD. 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 [facility] RAD COUGH [id number] 05/18/2014 19:14:00 05/18/2014 21:07:00 DIS Emergency DERICK GRIMES, YANETH Avila [facility] ER SOA [id number] 02/11/2014 11:55:00 02/11/2014 23:59:59 CLS Outpatient ANJALI GRIMES FACC, WILNER HOLT CCDS [facility] CARD BRADYCARDIA, [id number] 10/13/2013 17:17:00 10/13/2013 23:59:59 CLS Outpatient KAREEM CISNEROS DO [facility] LAB COUGH [id number] 01/26/2016 14:36:00 Document Registration [id number] 12/09/2011 13:38:00 Document Registration [id number] 11/29/2011 11:26:00 Document Registration [id number] 07:24:00 Document Registration [id number] 03/30/2011 00:00:00 Document Registration [id number] 02/18/2011 13:52:00 Document Registration [id number] 01/29/2011 13:47:00 Document Registration [id number] 01/24/2011 22:29:00 Document Registration [id number] 01/15/2011 17:14:00 Document Registration [id number] 01/13/2011 13:36:00 Document Registration [id number] 01/12/2011 07:38:00 Document Registration [id number] 12/31/2010 09:17:00 Document Registration [id number] 12/26/2010 20:32:00 Document Registration [id number] 11/18/2010 12:35:00 Document Registration [id number] 10/29/2010 13:56:00 Document Registration [id number] 12/24/2014 06:43:32 ACT Document Registration
[2017-10-22 11:27] LABS: BASOPHILS % (AUTO) 0 % (0-10); EOSINOPHILS % (AUTO) 1 % (0-10); HEMATOCRIT 40 % (40-54); LYMPHOCYTES # (AUTO) 0.9 X 10^3 (1.0-4.0); LYMPHOCYTES % (AUTO) 20 % (12-44); MEAN CORPUSCULAR HEMOGLOBIN 33 PG (25-34); MEAN CORPUSCULAR HGB CONC 35 G/DL (32-36); MEAN CORPUSCULAR VOLUME 94 FL (80-99); MONOCYTES # (AUTO) 0.6 X 10^3 (0.0-1.0); MONOCYTES % (AUTO) 13 % (0-12); NEUTROPHILS % (AUTO) 66 % (42-75); PLATELET COUNT 177 10^3/uL (130-400); RED BLOOD COUNT 4.21 10^6/uL (4.35-5.85); RED CELL DISTRIBUTION WIDTH 14.6 % (10.0-14.5); WHITE BLOOD COUNT 4.5 10^3/uL (4.3-11.0)
[2017-10-22 11:44] LABS: ALANINE AMINOTRANSFERASE 20 U/L (0-55); ALBUMIN 3.9 GM/DL (3.2-4.5); ALKALINE PHOSPHATASE 76 U/L (40-136); BILIRUBIN,TOTAL 0.6 MG/DL (0.1-1.0); BUN/CREATININE RATIO 19; CALCIUM 9.5 MG/DL (8.5-10.1); CARBON DIOXIDE 25 MMOL/L (21-32); CHLORIDE 99 MMOL/L (98-107); GFR ESTIMATED > 60; GLUCOSE 111 MG/DL (70-105); LIPASE 39 U/L (8-78); POTASSIUM 4.8 MMOL/L (3.6-5.0); SODIUM 133 MMOL/L (135-145); TOTAL PROTEIN 5.9 GM/DL (6.4-8.2)
[2017-10-22] MEDS ORDERED: IOHEXOL 350 MG/ML 100 ML (OMNIPAQUE 350) VIAL IV ONE (12:00)
[2017-10-22] MEDS ORDERED: NS 100 ML (IVPB) BAG IV ONE (12:00)
--- NOTE | 2017-10-22 12:17 | Diagnostic Imaging Report ---
PROCEDURE: CT abdomen and pelvis with contrast. TECHNIQUE: Multiple contiguous axial images were obtained through the abdomen and pelvis after administration of intravenous contrast. Indication: Upper abdominal pain with constipation for 4 months. Comparison: 09/10/2017. Discussion: The lung bases are well-aerated. Normal heart size. No pleural or pericardial fluid. The gallbladder, liver, pancreas, spleen, and adrenal glands are unremarkable. Stomach appears within normal limits. Mild heterogenous appearance of the main portal vein is likely due to mixing artifact though an underlying partially occluding thrombus cannot be entirely excluded. The aorta is normal in caliber and contains mild atherosclerotic plaque. No renal stone or hydronephrosis. There is gas and stool noted within the colon. No significant constipation identified. No obstruction, pneumatosis, pneumoperitoneum. No ascites or pathologically enlarged lymph nodes identified. Mild bladder wall thickening is stable. Prostatomegaly is again noted. Degenerative disease is present within the lumbar spine, stable. No acute osseous abnormality. Impression: 1. Heterogenous appearance of the main portal vein could be due to mixing artifact or nonocclusive thrombus. This could be further evaluated with ultrasound as clinically indicated. 2. Additional chronic changes as discussed. No acute abnormality identified otherwise. Dictated by: Dictated on workstation # [id number]
[2017-10-22] MEDS ORDERED: PANT40TA2 PO (13:26)
[2017-10-22] MEDS ORDERED: SUCR1TAB36 PO (13:26)
[2017-10-22 13:37] VITALS: BP 112/81
--- NOTE | 2017-10-22 13:46 | Diagnostic Imaging Report ---
Procedure: US Hepatic (Liver). Technique: Multiple real-time grayscale images were obtained over the right upper quadrant in various projections. Indication: Abdominal pain, possible portal vein thrombosis on CT. Comparison: 07/11/2017. CT same date. Discussion: Sonographic evaluation of the right upper quadrant was performed. The liver appears normal in echotexture and size. No hepatic mass identified. The gallbladder appears normal without evidence of cholelithiasis, wall thickening, or pericholecystic fluid. No evidence of intrahepatic biliary duct dilatation. Common bile duct is obscured by overlying bowel gas, as is the pancreas. The main portal vein appears normal in caliber, normal hepatopetal blood flow. No filling defect identified. The right kidney appears normal in echotexture and size without evidence of hydronephrosis or renal mass. The right kidney measures 8.5 cm. There is no ascites or abnormal bowel loops identified. No sonographic Rogers sign was reported. Impression: 1. No acute abnormality identified. The main portal vein appears patent. No portal vein thrombosis identified. Dictated by: Dictated on workstation # [id number]
== END 2017-10-22 13:41 | disposition home or self-care (01) ==
LOC: EDUNIT# 10:38 → ER 10:39
DX: K29.70 Gastritis, unspecified, without bleeding (principal); I25.10 Atherosclerotic heart disease of native coronary artery without angina pectoris; E78.00 Pure hypercholesterolemia, unspecified; I10 Essential (primary) hypertension; F03.90 Unspecified dementia, unspecified severity, without behavioral disturbance, psychotic disturbance, mood disturbance, and anxiety; N40.0 Benign prostatic hyperplasia without lower urinary tract symptoms; K21.9 Gastro-esophageal reflux disease without esophagitis; Z87.19 Personal history of other diseases of the digestive system; Z86.73 Personal history of transient ischemic attack (TIA), and cerebral infarction without residual deficits; Z95.5 Presence of coronary angioplasty implant and graft; Z90.89 Acquired absence of other organs; Z90.79 Acquired absence of other genital organ(s); Z85.46 Personal history of malignant neoplasm of prostate
CPT/HCPCS: 36415; 74177; 76705; 80053; 83690; 85025; 85379

== ENCOUNTER 2017-12-03 10:27 | Emergency (ER) | payer MEDICARE ==
[~2017-12-03] VITALS: Ht 177.8 cm; Wt 61.2 kg
[~2017-12-03 10:27] MED LIST changes: +PANT40TA2 PO; +SUCR1TAB36 PO
--- OUTSIDE RECORDS SUMMARY | 2017-12-03 10:32 | XMS REPORT | Clinical Summary ---
Author Author [facility] Organization [facility] Address Unknown Phone Unavailable Care Team Providers Care Temperature Regulator Name Role Phone No Pcp, Na PCP Unavailable Source Comments Some departments are not documenting in the electronic medical record. If you do not see the information that you expected, contact Release of Information in the Health Information Management department at [phone] for further assistance in locating additional records.[facility] Allergies Not on File Current Medications Not [...] PERTUSSIS VACCINE 10/19/1942 TETANUS VACCINE 10/19/1948 SHINGLES RECOMBINANT 10/19/1981 VACCINE (1 of 2) PNEUMONIA (PCV13/PPSV23) 10/19/1996 VACCINES (1 of 2 - PCV13) INFLUENZA VACCINE 02/06/2018 Results Not on filefrom Last 3 Months
[2017-12-03] MEDS ORDERED: LIDOCAINE 2% VISCOUS 15 ML UDC PO ONE (11:15)
[2017-12-03] MEDS ORDERED: ANTACID SUSP 30 ML UDC (MYLANTA) PO ONE (11:15)
[2017-12-03 11:29] LABS: BILIRUBIN,URINE NEGATIVE (NEGATIVE); GLUCOSE, URINE (UA) NEGATIVE (NEGATIVE); KETONES,URINE NEGATIVE (NEGATIVE); LEUKOCYTE ESTERASE ,URINE NEGATIVE (NEGATIVE); NITRITE,URINE NEGATIVE (NEGATIVE); PH,URINE 6 (5-9); PROTEIN,URINE NEGATIVE (NEGATIVE); UROBILINOGEN,URINE NORMAL (NORMAL)
[2017-12-03 11:30] LABS: BACTERIA,URINE NEGATIVE /HPF; CLARITY,URINE CLEAR; COLOR,URINE YELLOW
--- NOTE | 2017-12-03 11:36 | Diagnostic Imaging Report ---
EXAM: ABDOMEN/KUB 1VIEW INDICATION: Upper abdominal pain. Chronic constipation. COMPARISON: CT abdomen and pelvis with IV contrast 10/22/2017. FINDINGS: Nonspecific bowel gas pattern. No large stool burden in the colon. There is a large amount of stool in the rectum. Several surgical clips overlying the abdomen and pelvis. Advanced scoliotic and spondylotic changes in the lumbar spine. Moderate degenerative changes in the hips. IMPRESSION: 1. Nonspecific bowel gas pattern. 2. Large amount of stool in the rectum. No large stool burden in the colon. Dictated by: Dictated on workstation # [id number]
--- NOTE | 2017-12-03 11:43 | ED Abdominal Pain ---
General Chief Complaint: Abdominal/GI Problems Stated Complaint: ABD PAIN Nursing Triage Note: PATIENT STATES THAT HE HAS CHRONIC CONSTIPATION AND FREQUENTLY ABDOMINAL PAIN. HE HAS BEEN SEEN FOR THIS REPEATEDLY. HE WAS TOLD IN OCTOBER THAT HE ALSO HAS AN ULCER. HE CAME TODAY BECAUSE HE HAS HAD PAIN X3 DAYS AND WAS HOPING WE COULD DO A SCAN OF HIS ABDOMEN PRIOR TO HIS APPT WITH HIS [facility]AIAKO KOHANGA REO APPT NEXT WEEK. Sepsis Screen: No Definite Risk Source of Information: Patient Exam Limitations: No Limitations History of Present Illness Date Seen by Provider: Dec 03, 2017 Time Seen by Provider: 11:40 Initial Comments to ER with recurrence of his epigastric abdominal pain. He's been seen here in the emergency room for this issue multiple times. He is scheduled to see gi tech Dr. Jamaal Wang at [facility] in [place] in December. His last bowel movement was this morning and he feels as though he did have another bowel movement now. He is not nauseous, only complains of pain in this is in the epigastric region. No vomiting. Timing/Duration: 1-2 Days Severity/Quality: Moderate Location: Epigastric Radiation: No Radiation Activities at Onset: None Associated Symptoms: Denies Symptoms Allergies and Home Medications Allergies Coded Allergies: butorphanol (Verified Allergy, Unknown, 08/22/17) ketorolac (Verified Adverse Reaction, Mild, STATES CAUSES MORE PAIN, ) Home Medications Amlodipine Besylate 10 Mg Tablet, 10 MG PO HS, (Reported) Aspirin 81 Mg Tablet.dr, 81 MG PO DAILY, (Reported) Calcium Polycarbophil 625 Mg Tablet, 625 MG PO DAILY, (Reported) Cetirizine HCl 10 Mg Tablet, 10 MG PO DAILY Prescribed by: JONN REID on 04/14/16 0821 Citalopram Hydrobromide 10 Mg Tablet, 10 MG PO DAILY, (Reported) Clopidogrel Bisulfate 75 Mg Tablet, 75 MG PO DAILY, (Reported) Donepezil HCl 10 Mg Tablet, 10 MG PO HS, (Reported) Famotidine 20 Mg Tablet, 20 MG PO BID Prescribed by: SHU TODD on 09/24/172209 Finasteride 5 Mg Tablet, 5 MG PO DAILY, (Reported) Glyburide 1.25 Mg Tablet, 1.25 MG PO DAILY Prescribed by: AQUILINO DUDLEY on 09/10/171816 Lisinopril 20 Mg Tablet, 20 MG PO DAILY, (Reported) Melatonin/Pyridoxine 1 Each Tablet, 5 MG PO HS, (Reported) Meloxicam 15 Mg Tablet, 7.5 MG PO DAILY, (Reported) Memantine HCl 10 Mg Tablet, 10 MG PO BID, (Reported) Metoclopramide HCl 5 Mg Tablet, 5 MG PO ACHS Prescribed by: SHU TODD on 09/24/17 221 Mirtazapine 15 Mg Tablet, 15 MG PO DAILY, (Reported) Multivitamin 1 Each Capsule, 1 EACH PO DAILY, (Reported) Pantoprazole Sodium 40 Mg Tablet.dr, 40 MG PO DAILY Prescribed by: LUCAS CALLES on 10/22/17 132 Ropinirole HCl 0.25 Mg Tab, 0.25 MG PO BID Prescribed by: JONN REID on 04/14/16 0825 Solifenacin Succinate 5 Mg Tablet, 5 MG PO DAILY, (Reported) Sucralfate 1 Gm Tablet, 1 GM PO ACHS makes with 2 teaspoon of water to dissolve into a slurry. Alternatively, may swallow the tablet in solid form Prescribed by: LUCAS CALLES on 10/22/17 132 Patient Home Medication List Home Medication List Reviewed: Yes Review of Systems Constitutional: see HPI EENTM: No Symptoms Reported Respiratory: No Symptoms Reported Cardiovascular: No Symptoms Reported Gastrointestinal: See HPI, Abdominal Pain; Denies Constipated, Denies Diarrhea , Denies Nausea Genitourinary: No Symptoms Reported Musculoskeletal: no symptoms reported Skin: no symptoms reported Psychiatric/Neurological: No Symptoms Reported Endocrine: No Symptoms Reported Past Hfmomgo-Yiwucl-Exvzoe Hx Patient Social History Alcohol Use: Denies Use Recreational Drug Use: No Smoking Status: Never a Smoker 2nd Hand Smoke Exposure: No Recent Foreign Travel: No Contact w/Someone Who Travel: No Recent Infectious Disease Expo: No Recent Hopitalizations: No Physical Abuse: No Sexual Abuse: No Immunizations Up To Date Tetanus Booster (TDap): Less than 5yrs Date of Pneumonia Vaccine: May 09, 2012 Date of Influenza Vaccine: Feb 06, 2017 Seasonal Allergies Seasonal Allergies: No Past Medical History Surgeries: Yes (BILAT INGHERNIA ,CATARACT SURGERY, TURP) Abdominal, Adenoidectomy, Cardiac, Coronary Stent, Eye Surgery, Orthopedic, Tonsillectomy, Transurethral Resection Respiratory: No Cardiac: Yes (STENTS X2) Coronary Artery Disease, High Cholesterol, Hypertension Neurological: Yes (1993-STROKE) Dementia, Stroke Reproductive Disorders: No Sexually Transmitted Disease: No HIV/AIDS: No Genitourinary: Yes (HX TURP; PROSTATE CANCER) Benign Prostatic Hyperpl, Prostate Problems Gastrointestinal: Yes ("GASTRIC EROSIONS") Gastroesophageal Reflux, Chronic Constipation, Diverticulosis, Ulcer, Irritable Bowel Musculoskeletal: Yes (ARTHRITIS) Arthritis Endocrine: No HEENT: Yes Cataract Loss of Vision: Bilateral Hearing Impairment: Hard of Hearing, Bilateral Hearing Aide Cancer: Yes (?) Prostate Did You Recieve Any Treatments: No Psychosocial: No Nursing Suicide Risk Score: 0 Integumentary: No Blood Disorders: No Adverse Reaction/Blood Tranf: No (HAS HAD BLOOD WITH NO REACTION) Physical Exam Vital Signs Vital Signs - First Documented 12/03/17 11:00 Temp 97.9 Pulse 71 Resp 20 B/P (MAP) 132/92 (105) Pulse Ox 97 Capillary Refill : Less Than 3 Seconds Height/Weight/BMI Height: 5'10.00" Weight: 135lbs. 0oz. 61.276490dg; 20.2 BMI Method:Stated General Appearance: WD/WN, no apparent distress HEENT: PERRL/EOMI, normal ENT inspection Respiratory: no respiratory distress, no accessory muscle use Cardiovascular: regular rate, rhythm, no murmur Gastrointestinal: normal bowel sounds, soft, tenderness (epigastric) Extremities: normal range of motion, non-tender Neurologic/Psychiatric: alert, normal mood/affect, oriented x 3 Skin: normal color, warm/dry Progress/Results/Core Measures Results/Orders Lab Results Laboratory Tests Test 12/03/17 11:10 12/03/17 11:40 Range/Units Urine Color YELLOW Urine Clarity CLEAR Urine pH 6 5-9 Urine Specific [place] 1.010 L 1.016-1.022 Urine Protein NEGATIVE NEGATIVE Urine Glucose (UA) NEGATIVE NEGATIVE Urine Ketones NEGATIVE NEGATIVE Urine Nitrite NEGATIVE NEGATIVE Urine Bilirubin NEGATIVE NEGATIVE Urine Urobilinogen NORMAL NORMAL MG/DL Urine Leukocyte Esterase NEGATIVE NEGATIVE Urine RBC (Auto) 1+ H NEGATIVE Urine RBC NONE /HPF Urine WBC NONE /HPF Urine Squamous Epithelial Cells NONE /HPF Urine Crystals NONE /LPF Urine Bacteria NEGATIVE /HPF Urine Casts NONE /LPF Urine Mucus NEGATIVE /LPF Urine Culture Indicated NO White Blood Count 4.4 4.3-11.0 10^3/uL Red Blood Count 4.39 4.35-5.85 10^6/uL Hemoglobin 14.6 13.3-17.7 G/DL Hematocrit 41 40-54 % Mean Corpuscular Volume 93 80-99 FL Mean Corpuscular Hemoglobin 33 25-34 PG Mean Corpuscular Hemoglobin Concent 36 32-36 G/DL Red Cell Distribution Width 13.8 10.0-14.5 % Platelet Count 192 130-400 10^3/uL Mean Platelet Volume 9.9 7.4-10.4 FL Neutrophils (%) (Auto) 66 42-75 % Lymphocytes (%) (Auto) 19 12-44 % Monocytes (%) (Auto) 14 H 0-12 % Eosinophils (%) (Auto) 1 0-10 % Basophils (%) (Auto) 1 0-10 % Neutrophils # (Auto) 2.9 1.8-7.8 X 10^3 Lymphocytes # (Auto) 0.9 L 1.0-4.0 X 10^3 Monocytes # (Auto) 0.6 0.0-1.0 X 10^3 Eosinophils # (Auto) 0.0 0.0-0.3 10^3/uL Basophils # (Auto) 0.0 0.0-0.1 10^3/uL Sodium Level 133 L 135-145 MMOL/L Potassium Level 4.5 3.6-5.0 MMOL/L Chloride Level 97 L 98-107 MMOL/L Carbon Dioxide Level 30 21-32 MMOL/L Anion Gap 6 5-14 MMOL/L Blood Urea Nitrogen 17 7-18 MG/DL Creatinine 0.92 0.60-1.30 MG/DL Estimat Glomerular Filtration Rate > 60 BUN/Creatinine Ratio 18 Glucose Level 88 70-105 MG/DL Calcium Level 9.8 8.5-10.1 MG/DL Total Bilirubin 0.5 0.1-1.0 MG/DL Aspartate Amino Transf (AST/SGOT) 26 5-34 U/L Alanine Aminotransferase (ALT/SGPT) 18 0-55 U/L Alkaline Phosphatase 94 40-136 U/L Total Protein 5.7 L 6.4-8.2 GM/DL Albumin 4.4 3.2-4.5 GM/DL Lipase 29 8-78 U/L My Orders Orders - LUCAS CALLES [employer] Abdomen/Kub 1view (12/03/17 11:12) Cbc With Automated Diff (12/03/17 11:12) Lipase (12/03/17 11:12) Comprehensive Metabolic Panel (12/03/17 11:12) Antacid Suspension (Mylanta Suspension (12/03/17 11:15) Lidocaine 2% Viscous 15 Ml (Xylocaine Vi (12/03/17 11:15) Medications Given in ED Current Medications Medications Dose Ordered Sig/Niall Route Start Time Stop Time Status Last Admin Dose Admin Al Hydrox/Mg Hydrox/Simethicone 30 ml ONCE ONCE PO 12/03/17 11:15 12/03/17 11:16 DC 12/03/17 11:32 30 ML Lidocaine HCl 15 ml ONCE ONCE PO 12/03/17 11:15 12/03/17 11:16 DC 12/03/17 11:32 15 ML Vital Signs/I&O 12/03/17 11:00 Temp 97.9 Pulse 71 Resp 20 B/P (MAP) 132/92 (105) Pulse Ox 97 Blood Pressure Mean: 105 Departure Impression Primary Impression: Epigastric abdominal pain Disposition: 01 HOME, SELF-CARE Condition: Stable Departure-Patient Inst. Decision time for Depature: 12:24 Referrals: DAYDAY JACQUES MD (PCP/Family) Primary Care Physician Patient Instructions: Acute Abdomen (Belly Pain), Adult (DC) Add. Discharge Instructions: 1. Follow-up with Dr. Emery 2. Return to ER for any concernsAll discharge instructions reviewed with patient and/or family. Voiced understanding. LUCAS CALLES [employer] Dec 03, 2017 11:43
[2017-12-03 11:56] LABS: BASOPHILS % (AUTO) 1 % (0-10); EOSINOPHILS % (AUTO) 1 % (0-10); HEMATOCRIT 41 % (40-54); HEMOGLOBIN 14.6 G/DL (13.3-17.7); LYMPHOCYTES # (AUTO) 0.9 X 10^3 (1.0-4.0); LYMPHOCYTES % (AUTO) 19 % (12-44); MEAN CORPUSCULAR HEMOGLOBIN 33 PG (25-34); MEAN CORPUSCULAR HGB CONC 36 G/DL (32-36); MEAN CORPUSCULAR VOLUME 93 FL (80-99); MEAN PLATELET VOLUME 9.9 FL (7.4-10.4); MONOCYTES # (AUTO) 0.6 X 10^3 (0.0-1.0); MONOCYTES % (AUTO) 14 % (0-12); NEUTROPHILS # (AUTO) 2.9 X 10^3 (1.8-7.8); NEUTROPHILS % (AUTO) 66 % (42-75); PLATELET COUNT 192 10^3/uL (130-400); RED BLOOD COUNT 4.39 10^6/uL (4.35-5.85); RED CELL DISTRIBUTION WIDTH 13.8 % (10.0-14.5); WHITE BLOOD COUNT 4.4 10^3/uL (4.3-11.0)
[2017-12-03 12:19] LABS: ALANINE AMINOTRANSFERASE 18 U/L (0-55); ALBUMIN 4.4 GM/DL (3.2-4.5); ALKALINE PHOSPHATASE 94 U/L (40-136); BILIRUBIN,TOTAL 0.5 MG/DL (0.1-1.0); BUN/CREATININE RATIO 18; CALCIUM 9.8 MG/DL (8.5-10.1); CARBON DIOXIDE 30 MMOL/L (21-32); CHLORIDE 97 MMOL/L (98-107); CREATININE SERUM 0.92 MG/DL (0.60-1.30); GFR ESTIMATED > 60; GLUCOSE 88 MG/DL (70-105); LIPASE 29 U/L (8-78); POTASSIUM 4.5 MMOL/L (3.6-5.0); SODIUM 133 MMOL/L (135-145); TOTAL PROTEIN 5.7 GM/DL (6.4-8.2)
[2017-12-03 12:28] VITALS: BP 132/92
== END 2017-12-03 12:32 | disposition home or self-care (01) ==
LOC: EDUNIT# 10:27 → ER 10:28
DX: R10.13 Epigastric pain (principal); I25.10 Atherosclerotic heart disease of native coronary artery without angina pectoris; E78.00 Pure hypercholesterolemia, unspecified; I10 Essential (primary) hypertension; F03.90 Unspecified dementia, unspecified severity, without behavioral disturbance, psychotic disturbance, mood disturbance, and anxiety; K21.9 Gastro-esophageal reflux disease without esophagitis; Z85.46 Personal history of malignant neoplasm of prostate; Z87.19 Personal history of other diseases of the digestive system; Z86.73 Personal history of transient ischemic attack (TIA), and cerebral infarction without residual deficits; Z88.8 Allergy status to other drugs, medicaments and biological substances; Z88.4 Allergy status to anesthetic agent; Z79.82 Long term (current) use of aspirin; Z79.84 Long term (current) use of oral hypoglycemic drugs; Z79.02 Long term (current) use of antithrombotics/antiplatelets; Z90.89 Acquired absence of other organs; Z95.5 Presence of coronary angioplasty implant and graft
CPT/HCPCS: 36415; 74018; 80053; 81000; 83690; 85025

== ENCOUNTER 2017-12-13 03:49 | Emergency (ER) | payer MEDICARE ==
[~2017-12-13] VITALS: Ht 172.7 cm; Wt 63.5 kg
[2017-12-13] MEDS ORDERED: PANTOPRAZOLE 40 MG/10 ML (PROTONIX) VIAL IV STA (03:56)
[2017-12-13] MEDS ORDERED: HYOSCYAMINE 0.125 MG (LEVSIN) TAB SL ONE (04:00)
[2017-12-13 04:12] LABS: BASOPHILS % (AUTO) 0 % (0-10); EOSINOPHILS % (AUTO) 1 % (0-10); HEMATOCRIT 38 % (40-54); HEMOGLOBIN 13.2 G/DL (13.3-17.7); LYMPHOCYTES # (AUTO) 1.1 X 10^3 (1.0-4.0); LYMPHOCYTES % (AUTO) 20 % (12-44); MEAN CORPUSCULAR HEMOGLOBIN 32 PG (25-34); MEAN CORPUSCULAR HGB CONC 35 G/DL (32-36); MEAN CORPUSCULAR VOLUME 92 FL (80-99); MEAN PLATELET VOLUME 9.5 FL (7.4-10.4); MONOCYTES # (AUTO) 0.8 X 10^3 (0.0-1.0); MONOCYTES % (AUTO) 14 % (0-12); NEUTROPHILS # (AUTO) 3.6 X 10^3 (1.8-7.8); NEUTROPHILS % (AUTO) 66 % (42-75); PLATELET COUNT 184 10^3/uL (130-400); RED BLOOD COUNT 4.11 10^6/uL (4.35-5.85); RED CELL DISTRIBUTION WIDTH 13.7 % (10.0-14.5); WHITE BLOOD COUNT 5.5 10^3/uL (4.3-11.0)
[2017-12-13 04:38] LABS: BUN/CREATININE RATIO 27; CARBON DIOXIDE 26 MMOL/L (21-32); CHLORIDE 96 MMOL/L (98-107); CREATININE SERUM 0.79 MG/DL (0.60-1.30); GFR ESTIMATED > 60; SODIUM 129 MMOL/L (135-145)
[2017-12-13 04:39] LABS: ALANINE AMINOTRANSFERASE 21 U/L (0-55); ALBUMIN 3.8 GM/DL (3.2-4.5); ALKALINE PHOSPHATASE 82 U/L (40-136); AMYLASE 64 U/L (25-125); BILIRUBIN,TOTAL 0.4 MG/DL (0.1-1.0); CALCIUM 9.1 MG/DL (8.5-10.1); GLUCOSE 79 MG/DL (70-105); LIPASE 29 U/L (8-78); TOTAL PROTEIN 5.4 GM/DL (6.4-8.2)
[2017-12-13] MEDS ORDERED: NS IV 1000 ML 1,000 ML IV ONE (05:12)
[2017-12-13 05:23] LABS: BILIRUBIN,URINE NEGATIVE (NEGATIVE); CLARITY,URINE CLEAR; COLOR,URINE YELLOW; GLUCOSE, URINE (UA) NEGATIVE (NEGATIVE); KETONES,URINE NEGATIVE (NEGATIVE); LEUKOCYTE ESTERASE ,URINE NEGATIVE (NEGATIVE); NITRITE,URINE NEGATIVE (NEGATIVE); PH,URINE 8 (5-9); PROTEIN,URINE NEGATIVE (NEGATIVE); UROBILINOGEN,URINE NORMAL (NORMAL)
[2017-12-13 05:30] LABS: AMORPHOUS SEDIMENT,UR FEW AMOR PHOSPHATE /LPF; BACTERIA,URINE TRACE /HPF; RBC,URINE RARE /HPF; SQUAMOUS EPITHELIAL CELL,UR RARE /HPF
[2017-12-13] MEDS ORDERED: ANTACID SUSP 30 ML UDC (MYLANTA) PO ONE (05:30)
[2017-12-13] MEDS ORDERED: LIDOCAINE 2% VISCOUS 15 ML UDC PO ONE (05:30)
--- NOTE | 2017-12-13 05:32 | ED Abdominal Pain ---
General Chief Complaint: Abdominal/GI Problems Stated Complaint: ABD PAIN Nursing Triage Note: STATES ABDOMINAL PAIN WOKE HIM UP Sepsis Screen: No Definite Risk Allergies and Home Medications Allergies Coded Allergies: butorphanol (Verified Allergy, Unknown, 08/22/17) ketorolac (Verified Adverse Reaction, Mild, STATES CAUSES MORE PAIN, ) Home Medications Amlodipine Besylate 10 Mg Tablet, 10 MG PO HS, (Reported) Aspirin 81 Mg Tablet.dr, 81 MG PO DAILY, (Reported) Calcium Polycarbophil 625 Mg Tablet, 625 MG PO DAILY, (Reported) Cetirizine HCl 10 Mg Tablet, 10 MG PO DAILY Prescribed by: JONN ERID on 04/14/16 08 Citalopram Hydrobromide 10 Mg Tablet, 10 MG PO DAILY, (Reported) Clopidogrel Bisulfate 75 Mg Tablet, 75 MG PO DAILY, (Reported) Donepezil HCl 10 Mg Tablet, 10 MG PO HS, (Reported) Famotidine 20 Mg Tablet, 20 MG PO BID Prescribed by: SHU TODD on 09/24/172209 Finasteride 5 Mg Tablet, 5 MG PO DAILY, (Reported) Glyburide 1.25 Mg Tablet, 1.25 MG PO DAILY Prescribed by: AQUILINO DUDLEY on 09/10/171816 Lisinopril 20 Mg Tablet, 20 MG PO DAILY, (Reported) Melatonin/Pyridoxine 1 Each Tablet, 5 MG PO HS, (Reported) Meloxicam 15 Mg Tablet, 7.5 MG PO DAILY, (Reported) Memantine HCl 10 Mg Tablet, 10 MG PO BID, (Reported) Metoclopramide HCl 5 Mg Tablet, 5 MG PO ACHS Prescribed by: SHU TODD on 09/24/172209 Mirtazapine 15 Mg Tablet, 15 MG PO DAILY, (Reported) Multivitamin 1 Each Capsule, 1 EACH PO DAILY, (Reported) Pantoprazole Sodium 40 Mg Tablet.dr, 40 MG PO DAILY Prescribed by: LUCAS CALLES on 10/22/17 1326 Ropinirole HCl 0.25 Mg Tab, 0.25 MG PO BID Prescribed by: JONN REID on 04/14/16 0825 Solifenacin Succinate 5 Mg Tablet, 5 MG PO DAILY, (Reported) Sucralfate 1 Gm Tablet, 1 GM PO ACHS makes with 2 teaspoon of water to dissolve into a slurry. Alternatively, may swallow the tablet in solid form Prescribed by: LUCAS CALLES on 10/22/17 1326 Past Dvlyyfb-Zwgrki-Gslbmn Hx Patient Social History Alcohol Use: Denies Use Recreational Drug Use: No Smoking Status: Never a Smoker 2nd Hand Smoke Exposure: No Recent Foreign Travel: No Contact w/Someone Who Travel: No Recent Infectious Disease Expo: No Recent Hopitalizations: No Physical Abuse: No Sexual Abuse: No Immunizations Up To Date Tetanus Booster (TDap): Less than 5yrs Date of Pneumonia Vaccine: May 09, 2012 Date of Influenza Vaccine: Feb 06, 2017 Seasonal Allergies Seasonal Allergies: No Past Medical History Surgeries: Yes (BILAT INGHERNIA ,CATARACT SURGERY, TURP) Abdominal, Adenoidectomy, Cardiac, Coronary Stent, Eye Surgery, Orthopedic, Tonsillectomy, Transurethral Resection Respiratory: No Cardiac: Yes (STENTS X2) Coronary Artery Disease, High Cholesterol, Hypertension Neurological: Yes (1993-STROKE) Dementia, Stroke Reproductive Disorders: No Sexually Transmitted Disease: No HIV/AIDS: No Genitourinary: Yes (HX TURP; PROSTATE CANCER) Benign Prostatic Hyperpl, Prostate Problems Gastrointestinal: Yes ("GASTRIC EROSIONS") Gastroesophageal Reflux, Chronic Constipation, Diverticulosis, Ulcer, Irritable Bowel Musculoskeletal: Yes (ARTHRITIS) Arthritis Endocrine: No HEENT: Yes Cataract Loss of Vision: Bilateral Hearing Impairment: Hard of Hearing, Bilateral Hearing Aide Cancer: Yes (?) Prostate Did You Recieve Any Treatments: No Psychosocial: No Nursing Suicide Risk Score: 0 Integumentary: No Blood Disorders: No Adverse Reaction/Blood Tranf: No (HAS HAD BLOOD WITH NO REACTION) Physical Exam Vital Signs Vital Signs - First Documented 12/13/17 03:54 Temp 96.8 Pulse 65 Resp 20 B/P (MAP) 122/96 (105) Pulse Ox 95 O2 Delivery Room Air Capillary Refill : Less Than 3 Seconds Height/Weight/BMI Height: 5'8.00" Weight: 140lbs. 0oz. 63.727839vv; 20.2 BMI Method:Estimated Progress/Results/Core Measures Results/Orders Lab Results Laboratory Tests Test 12/13/17 04:00 12/13/17 05:10 Range/Units White Blood Count 5.5 4.3-11.0 10^3/uL Red Blood Count 4.11 L 4.35-5.85 10^6/uL Hemoglobin 13.2 L 13.3-17.7 G/DL Hematocrit 38 L 40-54 % Mean Corpuscular Volume 92 80-99 FL Mean Corpuscular Hemoglobin 32 25-34 PG Mean Corpuscular Hemoglobin Concent 35 32-36 G/DL Red Cell Distribution Width 13.7 10.0-14.5 % Platelet Count 184 130-400 10^3/uL Mean Platelet Volume 9.5 7.4-10.4 FL Neutrophils (%) (Auto) 66 42-75 % Lymphocytes (%) (Auto) 20 12-44 % Monocytes (%) (Auto) 14 H 0-12 % Eosinophils (%) (Auto) 1 0-10 % Basophils (%) (Auto) 0 0-10 % Neutrophils # (Auto) 3.6 1.8-7.8 X 10^3 Lymphocytes # (Auto) 1.1 1.0-4.0 X 10^3 Monocytes # (Auto) 0.8 0.0-1.0 X 10^3 Eosinophils # (Auto) 0.0 0.0-0.3 10^3/uL Basophils # (Auto) 0.0 0.0-0.1 10^3/uL Sodium Level 129 L 135-145 MMOL/L Potassium Level 4.0 3.6-5.0 MMOL/L Chloride Level 96 L 98-107 MMOL/L Carbon Dioxide Level 26 21-32 MMOL/L Anion Gap 7 5-14 MMOL/L Blood Urea Nitrogen 21 H 7-18 MG/DL Creatinine 0.79 0.60-1.30 MG/DL Estimat Glomerular Filtration Rate > 60 BUN/Creatinine Ratio 27 Glucose Level 79 70-105 MG/DL Calcium Level 9.1 8.5-10.1 MG/DL Total Bilirubin 0.4 0.1-1.0 MG/DL Aspartate Amino Transf (AST/SGOT) 25 5-34 U/L Alanine Aminotransferase (ALT/SGPT) 21 0-55 U/L Alkaline Phosphatase 82 40-136 U/L Total Protein 5.4 L 6.4-8.2 GM/DL Albumin 3.8 3.2-4.5 GM/DL Amylase Level 64 25-125 U/L Lipase 29 8-78 U/L Urine Color YELLOW Urine Clarity CLEAR Urine pH 8 5-9 Urine Specific [place] 1.015 L 1.016-1.022 Urine Protein NEGATIVE NEGATIVE Urine Glucose (UA) NEGATIVE NEGATIVE Urine Ketones NEGATIVE NEGATIVE Urine Nitrite NEGATIVE NEGATIVE Urine Bilirubin NEGATIVE NEGATIVE Urine Urobilinogen NORMAL NORMAL MG/DL Urine Leukocyte Esterase NEGATIVE NEGATIVE Urine RBC (Auto) 1+ H NEGATIVE Urine RBC RARE /HPF Urine WBC NONE /HPF Urine Squamous Epithelial Cells RARE /HPF Urine Crystals PRESENT H /LPF Urine Amorphous Sediment FEW RANDA PHOSPHATE H /LPF Urine Bacteria TRACE /HPF Urine Casts NONE /LPF Urine Mucus NEGATIVE /LPF Urine Culture Indicated NO My Orders Orders - ZAYDA NAIR DO Saline Lock/Iv-Start (12/13/17 03:56) Amylase (12/13/17 03:56) Cbc With Automated Diff (12/13/17 03:56) Comprehensive Metabolic Panel (12/13/17 03:56) Lipase (12/13/17 03:56) Ua Culture If Indicated (12/13/17 03:56) Hyoscyamine Sl Tablet (Levsin Sl Tablet) (12/13/17 04:00) Pantoprazole Injection (Protonix Injecti (12/13/17 03:56) Saline Lock/Iv-Start (12/13/17 05:12) Ns Iv 1000 Ml (Sodium Chloride 0.9%) (12/13/17 05:12) Lidocaine 2% Viscous 15 Ml (Xylocaine Vi (12/13/17 05:30) Antacid Suspension (Mylanta Suspension (12/13/17 05:30) Acute Abd Series (12/13/17 05:44) Dicyclomine Capsule (Bentyl Capsule) (12/13/17 05:44) Fentanyl Injection (Sublimaze Injection (12/13/17 05:44) Medications Given in ED Current Medications Medications Dose Ordered Sig/Niall Route Start Time Stop Time Status Last Admin Dose Admin Al Hydrox/Mg Hydrox/Simethicone 30 ml ONCE ONCE PO 12/13/17 05:30 12/13/17 05:31 DC 12/13/17 05:35 30 ML Hyoscyamine Sulfate 0.25 mg ONCE ONCE SL 12/13/17 04:00 12/13/17 04:01 DC 12/13/17 04:23 0.25 MG Lidocaine HCl 15 ml ONCE ONCE PO 12/13/17 05:30 12/13/17 05:31 DC 12/13/17 05:35 15 ML Sodium Chloride 1,000 ml @ 0 mls/hr Q0M ONCE IV 12/13/17 05:12 12/13/17 05:13 DC 12/13/17 05:17 0 MLS/HR Vital Signs/I&O 12/13/17 03:54 Temp 96.8 Pulse 65 Resp 20 B/P (MAP) 122/96 (105) Pulse Ox 95 O2 Delivery Room Air Blood Pressure Mean: 105 Progress Progress Note : Progress Note SYMPTOMS IMPROVED AT DISMISSAL Diagnostic Imaging Comments ACUTE ABDOMEN XRAYS--QUESTIONABLE ATELECTASIS OR INFILTRATE RLL, NON-SPECIFIC BOWEL GAS PATTERN, PER RADIOLOGIST REPORT @ 0704 Reviewed: Reviewed by Me Departure Impression Primary Impression: Chronic abdominal pain Additional Impressions: Hyponatremia Hx of peptic ulcer POSSIBLE PNEUMONIA Disposition: HOME, SELF-CARE Condition: Stable Departure-Patient Inst. Referrals: DAYDAY JACQUES MD (PCP/Family) Primary Care Physician Patient Instructions: Acute Abdomen (Belly Pain), Adult (DC), Community- Acquired Pneumonia, Adult (DC), Peptic Ulcers (DC) Add. Discharge Instructions: TAKE YOUR MEDICATION PRESCRIBED TAKE MIRALAX EVERY DAY, AND MAY USE TWICE A DAY IF NEEDED FOR CONSTIPATION FOLLOW UP WITH ROAD CROSSING GUARD NEXT WEEK SCHEDULED FOLLOW UP WITH DR OSBORNE OR DR. RYAN THIS WEEK FOR FURTHER CARE All discharge instructions reviewed with patient and/or family. Voiced understanding. Scripts Cefdinir (Cefdinir) 300 Mg Capsule 300 MG PO BID for FOR INFECTION, #20 CAP Prov: ZAYDA NAIR DO 12/13/17 ZAYDA NAIR DO Dec 13, 2017 05:32
[2017-12-13] MEDS ORDERED: fentaNYL INJECTION 100 MCG/2 ML AMP IVP STA (05:44)
[2017-12-13] MEDS ORDERED: DICYCLOMINE 10 MG (BENTYL) CAP PO STA (05:44)
[2017-12-13] MEDS ORDERED: CEFD300C3 PO (07:04)
--- NOTE | 2017-12-13 07:11 | Diagnostic Imaging Report ---
EXAMINATION: Acute abdomen series. INDICATION: Abdominal pain The accompanying erect PA chest shows the heart size to be within normal limits and stable when compared to 09/24/2017. In the interval since the prior study a vague area of increased density has developed in the right infrahilar region. This finding maybe secondary to superimposition however. The possibility that there is an element of mild pneumonia/atelectasis should also be considered. The lungs are otherwise clear. Supine and erect views of the abdomen were obtained. There is gas in both large and small bowel in a nonspecific fashion. This appearance is similar to the prior exam of 09/24/2017. There is no sign of a bowel obstruction. There is no mass, organomegaly or pneumoperitoneum identified. 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 There is no acute bony abnormality appreciated. The numerous surgical coils overlying the abdomen and pelvis seen previously are also again evident and unchanged. Impression: 1. There is a question of mild pneumonia/atelectasis involving the right infrahilar region. Clinical followup is recommended. 2. The bowel gas pattern is nonspecific. There is no acute abnormality of the abdomen. Dictated by: Dictated on workstation # [id number]
[2017-12-13 07:25] VITALS: BP 122/96
== END 2017-12-13 07:25 | disposition home or self-care (01) ==
LOC: EDUNIT# 03:49 → ER 03:50
DX: R10.9 Unspecified abdominal pain (principal); G89.29 Other chronic pain; E87.1 Hypo-osmolality and hyponatremia; I25.10 Atherosclerotic heart disease of native coronary artery without angina pectoris; E78.00 Pure hypercholesterolemia, unspecified; I10 Essential (primary) hypertension; K21.9 Gastro-esophageal reflux disease without esophagitis; F03.90 Unspecified dementia, unspecified severity, without behavioral disturbance, psychotic disturbance, mood disturbance, and anxiety; Z86.73 Personal history of transient ischemic attack (TIA), and cerebral infarction without residual deficits; Z85.46 Personal history of malignant neoplasm of prostate; Z88.8 Allergy status to other drugs, medicaments and biological substances; Z87.19 Personal history of other diseases of the digestive system; Z79.82 Long term (current) use of aspirin; Z79.02 Long term (current) use of antithrombotics/antiplatelets; Z79.84 Long term (current) use of oral hypoglycemic drugs; Z90.89 Acquired absence of other organs; Z95.5 Presence of coronary angioplasty implant and graft
CPT/HCPCS: 36415; 74022; 80053; 81000; 82150; 83690; 85025; 96361; 96374; 96375

== ENCOUNTER 2017-12-19 05:56 | Emergency (ER) | payer MEDICARE ==
[~2017-12-19] VITALS: Ht 172.7 cm; Wt 63.5 kg
[2017-12-19 05:56] VITALS: BP 145/88
[~2017-12-19 05:56] MED LIST changes: +CEFD300C3 PO
--- OUTSIDE RECORDS SUMMARY | 2017-12-19 06:01 | XMS REPORT | Clinical Summary ---
Author Author [facility] Organization [facility] Address Unknown Phone Unavailable Care Team Providers Care Nurse Healthcare Manager Name Role Phone No Pcp, Na PCP Unavailable Source Comments Some departments are not documenting in the electronic medical record. If you do not see the information that you expected, contact Release of Information in the Health Information Management department at [phone] for further assistance in locating additional records.[facility] Allergies Not on File Current Medications Not [...]
--- OUTSIDE RECORDS SUMMARY | 2017-12-19 06:28 | XMS REPORT | Continuity of Care Document ---
Author Author Pending Sale To [facility] Address Unknown Phone Unavailable Allergies Active Description Code Type Severity Reaction Onset Reported/Identified Relationship to Patient Clinical Status Yes Toradol Drug Allergy 03/28/2012 Yes Toradol Drug Allergy N/A N/A 03/28/2012 Yes butorphanol [id number] Drug Allergy Unknown N/A 08/22/2017 Yes ketorolac [id number] Drug Allergy Mild STATES CAUSES M 08/22/2017 [...] NOS 11/20/2010 Ot 414.01 CORONARY ATHEROSCLEROSIS OF [place] CORON 11/20/2010 Ot 414.8 CHR ISCHEMIC HRT [...] NOS 12/01/2011 Ot 414.01 CORONARY ATHEROSCLEROSIS OF [place] CORON 12/01/2011 Ot 564.00 UNSPEC CONSTIPATION 12/01/2011 [...] OTHER GI SYSTEM SYMPTOMS 10/17/2014 RAMA PAGAN [employer] Ot 789.00 10/29/2014 RAMA PAGAN [employer] Ot 789.00 12/20/2014 IRISH GRIMES, HARPAL Valdez [...] NOS 01/26/2016 Ot 414.01 CORONARY ATHEROSCLEROSIS OF [place] CORON 01/26/2016 Ot 443.9 PERIPH VASCULAR DIS [...] Ot 440.9 ATHEROSCLEROSIS NOS 01/26/2016 RAMA PAGAN [employer] Ot 786.2 COUGH 01/26/2016 RAMA PAGAN [employer] Ot 789.00 ABDOMINAL PAIN, UNSPECIFIED SITE 01/26/2016 HUGO GRIMES, OLIVER Sutton Ot V72.84 EXAM PRE-OPERATIVE NOS 01/26/2016 HARPAL COBRUN MD Ot 600.00 HYPERTROPHY (BENIGN) OF PROSTATE [...] MAY Ot I25.10 ATHSCL HEART DISEASE OF [place] CORONARY 04/12/2016 ALYSA ARCHIBALD MD, Ot M70.21 OLECRANON BURSITIS, RIGHT ELBOW 04/12/2016 ALYSA ARCHIBALD MD, Ot Z01.818 ENCOUNTER FOR OTHER PREPROCEDURAL EXAMIN 04/12/2016 ALYSA ARCHIBALD MD, Ot Z11.2 ENCOUNTER FOR SCREENING FOR OTHER BACTER 04/13/2016 GALE MAY Ot E78.4 OTHER HYPERLIPIDEMIA 04/13/2016 GALE MAY Ot I25.10 ATHSCL HEART DISEASE OF [place] CORONARY 04/14/2016 ALYSA ARCHIBALD MD, Ot E78.5 HYPERLIPIDEMIA, UNSPECIFIED 04/14/2016 ALYSA ARCHIBALD MD Ot F41.9 ANXIETY DISORDER, UNSPECIFIED 04/14/2016 ALYSA ARCHIBALD MD Ot I10 ESSENTIAL (PRIMARY) HYPERTENSION 04/14/2016 ALYSA ARCHIBALD MD Ot I25.10 ATHSCL HEART DISEASE OF [place] CORONARY 04/14/2016 ALYSA ARCHIBALD MD Ot 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 04/14/2016 ALYSA ARCHIBALD MD, Ot K57.90 DVRTCLOS OF INTEST, PART UNSP, W/O PERF 04/14/2016 ALYSA ARCHIBALD MD Ot M19.90 UNSPECIFIED OSTEOARTHRITIS, UNSPECIFIED 04/14/2016 ALYSA ARCHIBALD MD, Ot M70.21 OLECRANON BURSITIS, RIGHT ELBOW 04/14/2016 ALYSA ARCHIBALD MD, Ot Z79.899 OTHER [employer]ES [employer] (CURRENT) DRUG THERAPY 04/14/2016 ALYSA ARCHIBALD MD, Ot Z86.73 PRSNL HX OF TIA (TIA), AND CEREB INFRC W 04/15/2016 ALYSA ARCHIBALD MD Ot E78.5 HYPERLIPIDEMIA, UNSPECIFIED 04/15/2016 ALYSA ARCHIBALD MD Ot F41.9 ANXIETY DISORDER, UNSPECIFIED 04/15/2016 ALYSA ARCHIBALD MD Ot I10 ESSENTIAL (PRIMARY) HYPERTENSION 04/15/2016 ALYSA ARCHIBALD MD, Ot I25.10 ATHSCL HEART DISEASE OF [place] CORONARY 04/15/2016 ALYSA ARCHIBALD MD, Ot 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 04/15/2016 ALYSA ARCHIBALD MD, Ot K57.90 DVRTCLOS OF INTEST, PART UNSP, W/O PERF 04/15/2016 ALYSA ARCHIBALD MD, Ot M19.90 UNSPECIFIED OSTEOARTHRITIS, UNSPECIFIED 04/15/2016 ALYSA ARCHIBALD MD, Ot M70.21 OLECRANON BURSITIS, RIGHT ELBOW 04/15/2016 ALYSA ARCHIBALD MD, Ot Z79.899 OTHER [employer] (CURRENT) DRUG THERAPY 04/15/2016 ALYSA ARCHIBALD MD, Ot Z86.73 PRSNL HX OF TIA (TIA), AND CEREB INFRC W 04/18/2016 ALYSA ARCHIBALD MD, Ot M70.21 OLECRANON BURSITIS, RIGHT ELBOW 04/18/2016 ALYSA ARCHIBALD MD, Ot Z01.818 ENCOUNTER FOR OTHER PREPROCEDURAL EXAMIN 04/18/2016 ALYSA ARCHIBALD MD, Ot Z11.2 ENCOUNTER FOR SCREENING FOR OTHER BACTER 04/21/2016 GALE MAY [employer] Ot E78.4 OTHER HYPERLIPIDEMIA 04/21/2016 GALE MAY [employer] Ot I25.10 ATHSCL HEART DISEASE OF [place] CORONARY 11/08/2016 LUCAS CALLES APRN Ot B30.9 [...] CONGESTION 11/08/2016 LUCAS CALLES APRN Ot Z79.82 SALES ASSOC (CURRENT) USE OF ASPIRIN 11/08/2016 LUCAS CALLES [...] CONGESTION 11/10/2016 LUCAS CALLES APRN Ot Z79.82 RESIDENTIAL (CURRENT) USE OF ASPIRIN 11/10/2016 LUCAS CALLES APRN Ot Z86.73 PRSNL HX OF TIA (TIA), AND CEREB INFRC W 11/10/2016 LUCAS CALLES APRN Ot Z95.5 PRESENCE OF CORONARY ANGIOPLASTY IMPLANT 11/12/2016 NATALYA MORAN [employer] OPERATOR Ot R05 COUGH 12/03/2016 NATALYA MORAN [employer] OPERATOR Ot R05 COUGH 12/10/2016 NATALYA MORAN [employer] Ot R05 COUGH 12/31/2016 DAYDAY JACQUES MD [...] MD Ot I25.10 ATHSCL HEART DISEASE OF [place] CORONARY 03/09/2017 SEJAL WILSON MD Ot M19.90 UNSPECIFIED OSTEOARTHRITIS, UNSPECIFIED 03/09/2017 SEJAL WILSON MD Ot N40.0 BENIGN PROSTATIC HYPERPLASIA WITHOUT LOW 03/09/2017 SEJAL WILSON MD Ot S01.512A LACERATION WITHOUT FOREIGN BODY OF ORAL 03/09/2017 SEJAL WILSON MD Ot X58.XXXA EXPOSURE TO OTHER SPECIFIED FACTORS, INI 03/09/2017 SEJAL WILSON MD Ot Z23 ENCOUNTER FOR IMMUNIZATION 03/09/2017 SEJAL WILSON MD Ot Z79.02 SALES ASSOC (CURRENT) USE OF ANTITHROMBOTI 03/09/2017 SEJAL WILSON MD Ot Z79.82 RESIDENTIAL (CURRENT) USE OF ASPIRIN 03/09/2017 SEJAL WILSON [...] MD Ot I25.10 ATHSCL HEART DISEASE OF [place] CORONARY 03/15/2017 SEJAL WILSON MD Ot M19.90 UNSPECIFIED OSTEOARTHRITIS, UNSPECIFIED 03/15/2017 SEJAL WILSON MD Ot N40.0 BENIGN PROSTATIC HYPERPLASIA WITHOUT LOW 03/15/2017 SEJAL WILSON MD Ot S01.512A LACERATION WITHOUT FOREIGN BODY OF ORAL 03/15/2017 SEJAL WILSON MD Ot X58.XXXA EXPOSURE TO OTHER SPECIFIED FACTORS, INI 03/15/2017 SEJAL WILSON MD Ot Z79.02 SALES ASSOC (CURRENT) USE OF ANTITHROMBOTI 03/15/2017 SEJAL WILSON MD Ot Z79.82 RESIDENTIAL (CURRENT) USE OF ASPIRIN 03/15/2017 SEJAL WILSON MD Ot Z90.89 ACQUIRED ABSENCE OF OTHER ORGANS 03/15/2017 SEJAL WILSON MD Ot Z95.5 PRESENCE OF CORONARY ANGIOPLASTY IMPLANT 03/25/2017 ANJALI GRIMES FACC, ALI FACP CCDS Ot E78.4 OTHER HYPERLIPIDEMIA 03/25/2017 ANJALI GRIMES FAC, ALI FACP CCDS Ot I25.10 ATHSCL HEART DISEASE OF [place] CORONARY 03/25/2017 ANJALI GRIMES FACC, ALI FACP [...] CCDS Ot I25.10 ATHSCL HEART DISEASE OF [place] CORONARY 04/01/2017 ANJALI GRIMES FAC, ALI FACP CCDS Ot 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 04/01/2017 ANJALI GRIMES [facility], ALI FACP CCDS Ot R00.1 BRADYCARDIA, UNSPECIFIED 04/01/2017 ANJALI GRIMES [facility], ALI FACP CCDS Ot Z86.79 PERSONAL HISTORY [...] K Ot I25.10 ATHSCL HEART DISEASE OF [place] CORONARY 06/25/2017 JOANIE DO ZAYDA K Ot 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 06/25/2017 JOANIE DO, ZAYDA K Ot K59.00 CONSTIPATION, UNSPECIFIED 06/25/2017 JOANIE DO, ZAYDA K Ot N40.1 BENIGN PROSTATIC HYPERPLASIA WITH LOWER 06/25/2017 JOANIE DO, ZAYDA K Ot R07.9 CHEST PAIN, UNSPECIFIED 06/25/2017 JOANIE DO ZAYDA K Ot Z79.82 RESIDENTIAL (CURRENT) USE OF ASPIRIN 06/25/2017 GIRMA NAIR [...] K Ot I25.10 ATHSCL HEART DISEASE OF [place] CORONARY 06/26/2017 JOANIE MEDEIROS ZAYDA K Ot 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 06/26/2017 JOANIE MEDEIROS ZAYDA K Ot K59.00 CONSTIPATION, UNSPECIFIED 06/26/2017 JOANIE ZAYDA K Ot Z79.82 RESIDENTIAL (CURRENT) USE OF ASPIRIN 06/26/2017 JOANIE MEDEIROS [...] DO Ot I25.10 ATHSCL HEART DISEASE OF [place] CORONARY 06/28/2017 ZAYDA ANIR DO Ot 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 06/28/2017 ZAYDA NAIR DO Ot K59.00 CONSTIPATION, UNSPECIFIED 06/28/2017 ZAYDA NAIR DO Ot Z79.82 SALES ASSOC (CURRENT) USE OF ASPIRIN 06/28/2017 ZAYDA NAIR [...] OF CORONARY ANGIOPLASTY IMPLANT 07/03/2017 NATALYA MORAN [employer] OPERATOR Ot K59.00 CONSTIPATION, UNSPECIFIED 07/12/2017 NATALYA MORAN [employer] OPERATOR Ot R10.9 UNSPECIFIED ABDOMINAL PAIN 07/16/2017 COSKAREEM [...] Ot 440.9 ATHEROSCLEROSIS NOS 07/16/2017 RAMA PAGAN [employer] Ot 786.2 COUGH 07/16/2017 RAMA PAGAN [employer] A[employer] Ot 789.00 ABDOMINAL PAIN, UNSPECIFIED SITE 07/16/2017 HUGO GRIMES, OLIVER Sutton Ot V72.84 EXAM PRE-OPERATIVE NOS 07/16/2017 HARPAL COBURN MD Ot 600.00 HYPERTROPHY (BENIGN) OF PROSTATE W/O URI 07/16/2017 HARPAL COBURN MD Ot V72.63 PRE-PROCEDURAL LABORATORY EXAMINATION 07/16/2017 HARPAL COBURN MD Ot V74.8 SCREEN-BACTERIAL DIS NEC 07/16/2017 GEORGIE GRIMES, DAYDAY Valdez Ot E86.0 DEHYDRATION 07/16/2017 GALE MAY [employer] Ot E78.4 OTHER HYPERLIPIDEMIA 07/16/2017 GALE MAY [employer] A[employer] Ot I25.10 ATHSCL HEART DISEASE OF [place] CORONARY 07/16/2017 NATALYA MORAN [employer] OPERATOR Ot R05 COUGH 07/16/2017 DAYDAY JACQUES MD Ot R09.82 POSTNASAL DRIP 07/16/2017 DAYDAY JACQUES MD Ot R93.8 ABNORMAL FINDINGS ON DIAGNOSTIC IMAGING 07/16/2017 ANJALI GRIMES FACC, ALI FACP CCDS Ot E78.4 OTHER HYPERLIPIDEMIA 07/16/2017 ANJALI GRIMES FACC, ALI FACP CCDS Ot I25.10 ATHSCL HEART DISEASE OF [place] CORONARY 07/16/2017 ANJALI GRIMES FACC, ALI FACP CCDS Ot 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 07/16/2017 ANJALI GRIMES FACC, ALI FACP CCDS Ot R00.1 BRADYCARDIA, UNSPECIFIED 07/16/2017 ANJALI GRIMES FACC, ALI FACP CCDS Ot Z86.79 PERSONAL HISTORY OF OTHER DISEASES OF TH 07/16/2017 HARPAL COBURN MD Ot C61 MALIGNANT NEOPLASM OF PROSTATE 07/16/2017 NATALYA MORAN [employer] OPERATOR Ot K59.00 CONSTIPATION, UNSPECIFIED 07/16/2017 NATALYA MORAN [employer] OPERATOR Ot R10.9 UNSPECIFIED ABDOMINAL PAIN 07/19/2017 NATALYA MORAN [employer] OPERATOR Ot R10.9 UNSPECIFIED ABDOMINAL PAIN 07/29/2017 NATALYA MORAN [employer] OPERATOR Ot K59.00 CONSTIPATION, UNSPECIFIED 08/01/2017 NATALYA MORAN [employer] OPERATOR Ot K59.00 CONSTIPATION, UNSPECIFIED 08/02/2017 NATALYA MORAN [employer] OPERATOR Ot R10.9 UNSPECIFIED ABDOMINAL PAIN 08/09/2017 NATALYA MORAN [employer] OPERATOR Ot R10.9 UNSPECIFIED ABDOMINAL PAIN 08/09/2017 NATALYA MORAN [employer] OPERATOR Ot R10.9 UNSPECIFIED ABDOMINAL PAIN 08/11/2017 NATALYA MORAN [employer] OPERATOR Ot R10.9 UNSPECIFIED ABDOMINAL PAIN 08/12/2017 HUGO [...] Ot 440.9 ATHEROSCLEROSIS NOS 08/17/2017 RAMA PAGAN [employer] A[employer] Ot 786.2 COUGH 08/17/2017 RAMA PAGAN [employer] A[employer] Ot 789.00 ABDOMINAL PAIN, UNSPECIFIED SITE 08/17/2017 HUGO GRIMES, OLIVER Sutton Ot V72.84 EXAM PRE-OPERATIVE NOS 08/17/2017 IRISH GRIMES, HARPAL Valdez Ot 600.00 HYPERTROPHY (BENIGN) OF PROSTATE W/O URI 08/17/2017 HARPAL COBURN MD Ot V72.63 PRE-PROCEDURAL LABORATORY EXAMINATION 08/17/2017 HARPAL COBURN MD Ot V74.8 SCREEN-BACTERIAL DIS NEC 08/17/2017 DAYDAY JACQUES MD Ot E86.0 DEHYDRATION 08/17/2017 GALE MAY [employer] A[employer] Ot E78.4 OTHER HYPERLIPIDEMIA 08/17/2017 GALE MAY [employer] AID Ot I25.10 ATHSCL HEART DISEASE OF [place] CORONARY 08/17/2017 NATALYA MORAN [employer] OPERATOR Ot R05 COUGH 08/17/2017 DAYDAY JACQUES MD Ot R09.82 POSTNASAL DRIP 08/17/2017 DAYDAY JACQUES MD Ot R93.8 ABNORMAL FINDINGS ON DIAGNOSTIC IMAGING 08/17/2017 ANJALI GRIMES FACC, ALI FACP CCDS Ot E78.4 OTHER HYPERLIPIDEMIA 08/17/2017 ANJALI GRIMES FACC, ALI FACP CCDS Ot I25.10 ATHSCL HEART DISEASE OF [place] CORONARY 08/17/2017 ANJALI GRIMES [facility], ALI FACP CCDS Ot 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 08/17/2017 ANJALI GRIMES [facility], ALI FACP CCDS Ot R00.1 BRADYCARDIA, UNSPECIFIED 08/17/2017 ANJALI GRIMES [facility], ALI FACP CCDS Ot Z86.79 PERSONAL HISTORY OF OTHER DISEASES OF TH 08/17/2017 IRISH GRIMES, HARPAL Valdez Ot C61 MALIGNANT NEOPLASM OF PROSTATE 08/17/2017 NATALYA MORAN [employer] OPERATOR Ot K59.00 CONSTIPATION, UNSPECIFIED 08/17/2017 NATALYA MORAN [employer] OPERATOR Ot R10.9 UNSPECIFIED ABDOMINAL PAIN 08/17/2017 NATALYA MORAN [employer] OPERATOR Ot R10.9 UNSPECIFIED ABDOMINAL PAIN 08/17/2017 GEORGIE [...] MD Ot I25.10 ATHSCL HEART DISEASE OF [place] CORONARY 08/29/2017 OLIVER ARIAS MD Ot K44.9 DIAPHRAGMATIC HERNIA WITHOUT OBSTRUCTION 08/29/2017 OLIVER ARIAS MD Ot K57.30 DVRTCLOS OF LG INT W/O PERFORATION OR AB 08/29/2017 OLIVER ARIAS MD Ot 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 08/30/2017 OLIVER ARIAS MD Ot R19.4 CHANGE IN BOWEL HABIT 08/30/2017 OLIVER ARIAS MD Ot R63.5 ABNORMAL WEIGHT GAIN 08/30/2017 OLIVER ARIAS MD, Ot Z79.82 RESIDENTIAL (CURRENT) USE OF ASPIRIN 09/01/2017 OLIVER ARIAS MD Ot 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 09/07/2017 OLIVER ARIAS MD Ot 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 09/09/2017 OLIVER ARIAS MD Ot E03.9 HYPOTHYROIDISM, UNSPECIFIED 09/09/2017 OLIVER ARIAS MD Ot E78.5 HYPERLIPIDEMIA, UNSPECIFIED 09/09/2017 OLIVER ARIAS MD Ot I25.10 ATHSCL HEART DISEASE OF [place] CORONARY 09/09/2017 OLIVER ARIAS MD Ot K44.9 DIAPHRAGMATIC HERNIA WITHOUT OBSTRUCTION 09/09/2017 OLIVER ARIAS MD Ot K57.30 DVRTCLOS OF LG INT W/O PERFORATION OR AB 09/09/2017 OLIVER ARIAS MD Ot 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 09/09/2017 OLIVER ARIAS MD Ot R19.4 CHANGE IN BOWEL HABIT 09/09/2017 OLIVER ARIAS MD Ot R63.5 ABNORMAL WEIGHT GAIN 09/09/2017 OLIVER ARIAS MD Ot Z79.82 RESIDENTIAL (CURRENT) USE OF ASPIRIN 09/10/2017 LUIS ENRIQUE GRIMES, AQUILINO Tse Ot E11.9 TYPE 2 DIABETES MELLITUS WITHOUT COMPLIC 09/10/2017 AQUILINO DUDLEY MD Ot E78.00 PURE HYPERCHOLESTEROLEMIA, UNSPECIFIED 09/10/2017 AQUILINO DUDLEY MD Ot E86.0 DEHYDRATION 09/10/2017 AQUILINO DUDLEY MD Ot I10 ESSENTIAL (PRIMARY) HYPERTENSION 09/10/2017 AQUILINO DUDLEY MD Ot I25.10 ATHSCL HEART DISEASE OF [place] CORONARY 09/10/2017 AQUILINO DUDLEY MD Ot 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 09/10/2017 AQUILINO DUDLEY MD Ot R53.1 WEAKNESS 09/10/2017 AQUILINO UDDLEY MD Ot Z79.82 SALES ASSOC (CURRENT) USE OF ASPIRIN 09/10/2017 AQUILINO DUDLEY [...] MD Ot I25.10 ATHSCL HEART DISEASE OF [place] CORONARY 09/12/2017 AQUILINO DUDLEY MD Ot 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 09/12/2017 AQUILINO DUDLEY MD, Ot R53.1 WEAKNESS 09/12/2017 AQUILINO DUDLEY MD, Ot Z79.82 SALES ASSOC (CURRENT) USE OF ASPIRIN 09/12/2017 AQUILNIO DUDLEY MD, Ot Z85.46 PERSONAL HISTORY OF [...] CHEN Ot I25.10 ATHSCL HEART DISEASE OF [place] CORONARY 09/24/2017 SHU CHEN Ot 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 09/24/2017 SHU CHEN Ot K31.84 GASTROPARESIS 09/24/2017 SHU CHEN Ot R10.9 UNSPECIFIED ABDOMINAL PAIN 09/24/2017 SHU CHEN Ot Z79.02 SALES ASSOC (CURRENT) USE OF ANTITHROMBOTI 09/24/2017 SHU CHEN Ot Z79.82 RESIDENTIAL (CURRENT) USE OF ASPIRIN 09/24/2017 SHU CHEN [...] CHEN Ot I25.10 ATHSCL HEART DISEASE OF [place] CORONARY 09/26/2017 SHU CHEN Ot 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 09/26/2017 SHU CHEN Ot K31.84 GASTROPARESIS 09/26/2017 SHU CHEN Ot R10.9 UNSPECIFIED ABDOMINAL PAIN 09/26/2017 SHU CHEN Ot Z79.02 SALES ASSOC (CURRENT) USE OF ANTITHROMBOTI 09/26/2017 SHU CHEN Ot Z79.82 SALES ASSOC (CURRENT) USE OF ASPIRIN 09/26/2017 SHU CHEN [...] Z90.89 ACQUIRED ABSENCE OF OTHER ORGANS 09/26/2017 SHU CHEN Ot Z95.5 PRESENCE OF CORONARY ANGIOPLASTY IMPLANT 09/27/2017 GEORGIE GRIMES, DAYDAY Valdez Ot M54.5 LOW BACK PAIN 09/27/2017 GEORGIE GRIMES, DAYDAY Valdez Ot M54.6 PAIN IN THORACIC SPINE 09/27/2017 GEORGIE GRIMES, DAYDAY Valdez Ot M79.602 PAIN IN LEFT ARM 10/05/2017 GEORGIE GRIMES, DAYDAY Valdez Ot M54.5 LOW BACK PAIN 10/05/2017 GEORGIE GRIMES, DAYDAY Valdez Ot M54.6 PAIN IN THORACIC SPINE 10/05/2017 GEORGIE GRIMES, DAYDAY Valdez Ot M79.602 PAIN IN LEFT ARM 10/22/2017 LUCAS CALLES APRN Ot E78.00 PURE HYPERCHOLESTEROLEMIA, UNSPECIFIED 10/22/2017 LUCAS CALLES APRN Ot F03.90 UNSPECIFIED DEMENTIA 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L 10/22/2017 LUCAS CALLES APRN Ot I10 ESSENTIAL (PRIMARY) HYPERTENSION 10/22/2017 LUCAS CALLES APRN Ot I25.10 ATHSCL HEART DISEASE OF [place] CORONARY 10/22/2017 LUCAS CALLES APRN Ot 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 10/22/2017 LUCAS CALLES APRN Ot K29.70 GASTRITIS, UNSPECIFIED, WITHOUT BLEEDING 10/22/2017 LUCAS CALLES APRN Ot N40.0 BENIGN PROSTATIC HYPERPLASIA WITHOUT LOW 10/22/2017 LUCAS CALLES APRN Ot R10.13 EPIGASTRIC PAIN 10/22/2017 LUCAS CALLES APRN Ot Z85.46 PERSONAL HISTORY OF MALIGNANT NEOPLASM O 10/22/2017 LUCAS CALLES APRN Ot Z86.73 PRSNL HX OF TIA (TIA), AND CEREB INFRC W 10/22/2017 LUCAS CALLES APRN Ot Z87.19 PERSONAL HISTORY OF OTHER DISEASES OF TH 10/22/2017 LUCAS CALLES APRN Ot Z90.79 ACQUIRED ABSENCE OF OTHER GENITAL ORGAN( 10/22/2017 LUCAS CALLES APRN Ot Z90.89 ACQUIRED ABSENCE OF OTHER ORGANS 10/22/2017 LUCAS CALLES APRN Ot Z95.5 PRESENCE OF CORONARY ANGIOPLASTY IMPLANT 10/24/2017 LUCAS CALLES APRN Ot E78.00 PURE HYPERCHOLESTEROLEMIA, UNSPECIFIED 10/24/2017 LUCAS CALLES APRN Ot F03.90 UNSPECIFIED DEMENTIA 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L 10/24/2017 LUCAS CALLES APRN Ot I10 ESSENTIAL (PRIMARY) HYPERTENSION 10/24/2017 LUCAS CALLES APRN Ot I25.10 ATHSCL HEART DISEASE OF [place] CORONARY 10/24/2017 LUCAS CALLES APRN Ot 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 10/24/2017 LUCAS CALLES APRN Ot K29.70 GASTRITIS, UNSPECIFIED, WITHOUT BLEEDING 10/24/2017 LUCAS CALLES APRN Ot N40.0 BENIGN PROSTATIC HYPERPLASIA WITHOUT LOW 10/24/2017 LUCAS CALLES APRN Ot R10.13 EPIGASTRIC PAIN 10/24/2017 LUCAS CALLES APRN Ot Z85.46 PERSONAL HISTORY OF MALIGNANT NEOPLASM O 10/24/2017 LUCAS CALLES APRN Ot Z86.73 PRSNL HX OF TIA (TIA), AND CEREB INFRC W 10/24/2017 LUCAS CALLES APRN Ot Z87.19 PERSONAL HISTORY OF OTHER DISEASES OF TH 10/24/2017 LUCAS CALLES APRN Ot Z90.79 ACQUIRED ABSENCE OF OTHER GENITAL ORGAN( 10/24/2017 LUCAS CALLES APRN Ot Z90.89 ACQUIRED ABSENCE OF OTHER ORGANS 10/24/2017 LUCAS CALLES APRN Ot Z95.5 PRESENCE OF CORONARY ANGIOPLASTY IMPLANT 10/28/2017 LUCAS CALLES APRN Ot E78.00 PURE HYPERCHOLESTEROLEMIA, UNSPECIFIED 10/28/2017 LUCAS CALLES APRN Ot F03.90 UNSPECIFIED DEMENTIA 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L 10/28/2017 LUCAS CALLES APRN Ot I10 ESSENTIAL (PRIMARY) HYPERTENSION 10/28/2017 LUCAS CLALES APRN Ot I25.10 ATHSCL HEART DISEASE OF [place] CORONARY 10/28/2017 LUCAS CALLES APRN Ot 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 10/28/2017 LUCAS CALLES APRN Ot K29.70 GASTRITIS, UNSPECIFIED, WITHOUT BLEEDING 10/28/2017 LUCAS CALLES APRN Ot N40.0 BENIGN PROSTATIC HYPERPLASIA WITHOUT LOW 10/28/2017 LUCAS CALLES APRN Ot R10.13 EPIGASTRIC PAIN 10/28/2017 LUCAS CALLES APRN Ot Z85.46 PERSONAL HISTORY OF MALIGNANT NEOPLASM O 10/28/2017 LUCAS CALLES APRN Ot Z86.73 PRSNL HX OF TIA (TIA), AND CEREB INFRC W 10/28/2017 LUCAS CALLES APRN Ot Z87.19 PERSONAL HISTORY OF OTHER DISEASES OF TH 10/28/2017 LUCAS CALLES APRN Ot Z90.79 ACQUIRED ABSENCE OF OTHER GENITAL ORGAN( 10/28/2017 LUCAS CALLES APRN Ot Z90.89 ACQUIRED ABSENCE OF OTHER ORGANS 10/28/2017 LUCAS CALLES APRN Ot Z95.5 PRESENCE OF CORONARY ANGIOPLASTY IMPLANT 12/05/2017 LUCAS CALLES APRN Ot E78.00 PURE HYPERCHOLESTEROLEMIA, UNSPECIFIED 12/05/2017 LUCAS CALLES APRN Ot F03.90 UNSPECIFIED DEMENTIA 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L 12/05/2017 LUCAS CALLES APRN Ot I10 ESSENTIAL (PRIMARY) HYPERTENSION 12/05/2017 LUCAS CALLES APRN Ot I25.10 ATHSCL HEART DISEASE OF [place] CORONARY 12/05/2017 LUCAS CALLES APRN Ot 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 12/05/2017 LUCAS CALLES APRN Ot R10.13 EPIGASTRIC PAIN 12/05/2017 LUCAS CALLES APRN Ot Z79.02 [employer] (CURRENT) USE OF ANTITHROMBOTI 12/05/2017 LUCAS CALLES APRN Ot Z79.82 [employer] (CURRENT) USE OF ASPIRIN 12/05/2017 LUCAS CALLES APRN Ot Z79.84 [employer] (CURRENT) USE OF ORAL HYPOGLYC 12/05/2017 LUCAS CALLES APRN Ot Z85.46 PERSONAL HISTORY OF MALIGNANT NEOPLASM O 12/05/2017 LUCAS CALLES APRN Ot Z86.73 PRSNL HX OF TIA (TIA), AND CEREB INFRC W 12/05/2017 LUCAS CALLES APRN Ot Z87.19 PERSONAL HISTORY OF OTHER DISEASES OF TH 12/05/2017 LUCAS CALLES APRN Ot Z88.4 ALLERGY STATUS TO ANESTHETIC AGENT STATU 12/05/2017 LUCAS CALLES APRN Ot Z88.8 ALLERGY STATUS TO OTH DRUG/MEDS/BIOL SUB 12/05/2017 LUCAS CALLES APRN Ot Z90.89 ACQUIRED ABSENCE OF OTHER ORGANS 12/05/2017 LUCAS CALLES APRN Ot Z95.5 PRESENCE OF CORONARY ANGIOPLASTY IMPLANT Procedures Code Description Performed By Performed On 00.40 11/30/2011 00.45 11/30/2011 00.66 11/30/2011 36.07 11/30/2011 37.22 11/30/2011 88.53 11/30/2011 88.56 11/30/2011 35670 PSYCH PHARM MGMT 03/29/2012 Results Test Result [...] rate by westergren method 16 mm 0-30 [id number] - 05/12/17 13:06 Serum or plasma urea [...] automated white blood cell (WBC) differential - 10/22/17 11:15 Blood leukocytes automated count (number/volume) 4.5 10*3/uL 4.3-11.0 Blood erythrocytes automated count (number/volume) 4.21 10*6/uL 4.35-5.85 Venous blood hemoglobin measurement (mass/volume) 14.0 g/dL 13.3-17.7 Blood hematocrit (volume fraction) 40 % 40-54 Automated erythrocyte mean corpuscular volume 94 [foz_us] 80-99 Automated erythrocyte mean corpuscular hemoglobin (mass per erythrocyte) 33 pg 25-34 Automated erythrocyte mean corpuscular hemoglobin concentration measurement ( mass/volume) 35 g/dL 32-36 Automated erythrocyte distribution width ratio 14.6 % 10.0-14.5 Automated blood platelet count (count/volume) 177 10*3/uL 130-400 Automated blood platelet mean volume measurement 10.0 [foz_us] 7.4-10.4 Automated blood neutrophils/100 leukocytes 66 % 42-75 Automated blood lymphocytes/100 leukocytes 20 % 12-44 Blood monocytes/100 leukocytes 13 % 0-12 Automated blood eosinophils/100 leukocytes 1 % 0-10 Automated blood basophils/100 leukocytes 0 % 0-10 Blood neutrophils automated count (number/volume) 3.0 10*3 1.8-7.8 Blood lymphocytes automated count (number/volume) 0.9 10*3 1.0-4.0 Blood monocytes automated count (number/volume) 0.6 10*3 0.0-1.0 Automated eosinophil count 0.0 10*3/uL 0.0-0.3 Automated blood basophil count (count/volume) 0.0 10*3/uL 0.0-0.1 Comprehensive metabolic panel - 10/22/17 11:15 Serum or plasma sodium measurement (moles/volume) 133 mmol/L 135-145 Serum or plasma potassium measurement (moles/volume) 4.8 mmol/L 3.6-5.0 Serum or plasma chloride measurement (moles/volume) 99 mmol/L 98-107 Carbon dioxide 25 mmol/L 21-32 Serum or plasma anion gap determination (moles/volume) 9 mmol/L 5-14 Serum or plasma urea nitrogen measurement (mass/volume) 19 mg/dL 7-18 Serum or plasma creatinine measurement (mass/volume) 1.00 mg/dL 0.60-1.30 Serum or plasma urea nitrogen/creatinine mass ratio 19 NRG Serum or plasma creatinine measurement with calculation of estimated glomerular filtration rate > NRG Serum or plasma glucose measurement (mass/volume) 111 mg/dL 70-105 Serum or plasma calcium measurement (mass/volume) 9.5 mg/dL 8.5-10.1 Serum or plasma total bilirubin measurement (mass/volume) 0.6 mg/dL 0.1-1.0 Serum or plasma alkaline phosphatase measurement (enzymatic activity/volume) 76 U/L 40-136 Serum or plasma aspartate aminotransferase measurement (enzymatic activity/ volume) 27 U/L 5-34 Serum or plasma alanine aminotransferase measurement (enzymatic activity/volume ) 20 U/L 0-55 Serum or plasma protein measurement (mass/volume) 5.9 g/dL 6.4-8.2 Serum or plasma albumin measurement (mass/volume) 3.9 g/dL 3.2-4.5 Lipase - 10/22/17 11:15 Lipase 39 U/L 8-78 Fibrin D-dimer FEU measurement in platelet poor plasma (mass/volume) - 11:15 Fibrin D-dimer FEU measurement in platelet poor plasma (mass/volume) 0.66 ug/mL 0.00-0.49 Complete urinalysis with reflex to culture - 12/03/17 11:10 Urine color determination YELLOW NRG Urine clarity determination CLEAR NRG Urine pH measurement by test strip 6 5-9 Specific gravity of urine by test [...] erythrocyte count by microscopy (number/high power field) NONE NRG Automated urine sediment leukocyte count by [...] automated white blood cell (WBC) differential - 12/03/17 11:40 Blood leukocytes automated count (number/volume) 4.4 10*3/uL 4.3-11.0 Blood erythrocytes automated count (number/volume) 4.39 10*6/uL 4.35-5.85 Venous blood hemoglobin measurement (mass/volume) 14.6 g/dL 13.3-17.7 Blood hematocrit (volume fraction) 41 % 40-54 Automated erythrocyte mean corpuscular volume 93 [foz_us] 80-99 Automated erythrocyte mean corpuscular hemoglobin (mass per erythrocyte) 33 pg 25-34 Automated erythrocyte mean corpuscular hemoglobin concentration measurement ( mass/volume) 36 g/dL 32-36 Automated erythrocyte distribution width ratio 13.8 % 10.0-14.5 Automated blood platelet count (count/volume) 192 10*3/uL 130-400 Automated blood platelet mean volume measurement 9.9 [foz_us] 7.4-10.4 Automated blood neutrophils/100 leukocytes 66 % 42-75 Automated blood lymphocytes/100 leukocytes 19 % 12-44 Blood monocytes/100 leukocytes 14 % 0-12 Automated blood eosinophils/100 leukocytes 1 % 0-10 Automated blood basophils/100 leukocytes 1 % 0-10 Blood neutrophils automated count (number/volume) 2.9 10*3 1.8-7.8 Blood lymphocytes automated count (number/volume) 0.9 10*3 1.0-4.0 Blood monocytes automated count (number/volume) 0.6 10*3 0.0-1.0 Automated eosinophil count 0.0 10*3/uL 0.0-0.3 Automated blood basophil count (count/volume) 0.0 10*3/uL 0.0-0.1 Comprehensive metabolic panel - 12/03/17 11:40 Serum or plasma sodium measurement (moles/volume) 133 mmol/L 135-145 Serum or plasma potassium measurement (moles/volume) 4.5 mmol/L 3.6-5.0 Serum or plasma chloride measurement (moles/volume) 97 mmol/L 98-107 Carbon dioxide 30 mmol/L 21-32 Serum or plasma anion gap determination (moles/volume) 6 mmol/L 5-14 Serum or plasma urea nitrogen measurement (mass/volume) 17 mg/dL 7-18 Serum or plasma creatinine measurement (mass/volume) 0.92 mg/dL 0.60-1.30 Serum or plasma urea nitrogen/creatinine mass ratio 18 NRG Serum or plasma creatinine measurement with calculation of estimated glomerular filtration rate > NRG Serum or plasma glucose measurement (mass/volume) 88 mg/dL 70-105 Serum or plasma calcium measurement (mass/volume) 9.8 mg/dL 8.5-10.1 Serum or plasma total bilirubin measurement (mass/volume) 0.5 mg/dL 0.1-1.0 Serum or plasma alkaline phosphatase measurement (enzymatic activity/volume) 94 U/L 40-136 Serum or plasma aspartate aminotransferase measurement (enzymatic activity/ volume) 26 U/L 5-34 Serum or plasma alanine aminotransferase measurement (enzymatic activity/volume ) 18 U/L 0-55 Serum or plasma protein measurement (mass/volume) 5.7 g/dL 6.4-8.2 Serum or plasma albumin measurement (mass/volume) 4.4 g/dL 3.2-4.5 Lipase - 12/03/17 11:40 Lipase 29 U/L 8-78 Complete blood count (CBC) with automated white blood cell (WBC) differential - 12/13/17 04:00 Blood leukocytes automated count (number/volume) 5.5 10*3/uL 4.3-11.0 Blood erythrocytes automated count (number/volume) 4.11 10*6/uL 4.35-5.85 Venous blood hemoglobin measurement (mass/volume) 13.2 g/dL 13.3-17.7 Blood hematocrit (volume fraction) 38 % 40-54 Automated erythrocyte mean corpuscular volume 92 [foz_us] 80-99 Automated erythrocyte mean corpuscular hemoglobin (mass per erythrocyte) 32 pg 25-34 Automated erythrocyte mean corpuscular hemoglobin concentration measurement ( mass/volume) 35 g/dL 32-36 Automated erythrocyte distribution width ratio 13.7 % 10.0-14.5 Automated blood platelet count (count/volume) 184 10*3/uL 130-400 Automated blood platelet mean volume measurement 9.5 [foz_us] 7.4-10.4 Automated blood neutrophils/100 leukocytes 66 % 42-75 Automated blood lymphocytes/100 leukocytes 20 % 12-44 Blood monocytes/100 leukocytes 14 % 0-12 Automated blood eosinophils/100 leukocytes 1 % 0-10 Automated blood basophils/100 leukocytes 0 % 0-10 Blood neutrophils automated count (number/volume) 3.6 10*3 1.8-7.8 Blood lymphocytes automated count (number/volume) 1.1 10*3 1.0-4.0 Blood monocytes automated count (number/volume) 0.8 10*3 0.0-1.0 Automated eosinophil count 0.0 10*3/uL 0.0-0.3 Automated blood basophil count (count/volume) 0.0 10*3/uL 0.0-0.1 Comprehensive metabolic panel - 12/13/17 04:00 Serum or plasma sodium measurement (moles/volume) 129 mmol/L 135-145 Serum or plasma potassium measurement (moles/volume) 4.0 mmol/L 3.6-5.0 Serum or plasma chloride measurement (moles/volume) 96 mmol/L 98-107 Carbon dioxide 26 mmol/L 21-32 Serum or plasma anion gap determination (moles/volume) 7 mmol/L 5-14 Serum or plasma urea nitrogen measurement (mass/volume) 21 mg/dL 7-18 Serum or plasma creatinine measurement (mass/volume) 0.79 mg/dL 0.60-1.30 Serum or plasma urea nitrogen/creatinine mass ratio 27 NRG Serum or plasma creatinine measurement with calculation of estimated glomerular filtration rate > NRG Serum or plasma glucose measurement (mass/volume) 79 mg/dL 70-105 Serum or plasma calcium measurement (mass/volume) 9.1 mg/dL 8.5-10.1 Serum or plasma total bilirubin measurement (mass/volume) 0.4 mg/dL 0.1-1.0 Serum or plasma alkaline phosphatase measurement (enzymatic activity/volume) 82 U/L 40-136 Serum or plasma aspartate aminotransferase measurement (enzymatic activity/ volume) 25 U/L 5-34 Serum or plasma alanine aminotransferase measurement (enzymatic activity/volume ) 21 U/L 0-55 Serum or plasma protein measurement (mass/volume) 5.4 g/dL 6.4-8.2 Serum or plasma albumin measurement (mass/volume) 3.8 g/dL 3.2-4.5 Serum or plasma amylase measurement (enzymatic activity/volume) - 12/13/17 04: 00 Serum or plasma amylase measurement (enzymatic activity/volume) 64 U /L 25-125 Lipase - 12/13/17 04:00 Lipase 29 U/L 8-78 Complete urinalysis with reflex to culture - 12/13/17 05:10 Urine color determination YELLOW NRG Urine clarity determination CLEAR NRG Urine pH measurement by test strip 8 5-9 Specific gravity of urine by test [...] detection in urine sediment by light microscopy TRACE NRG Squamous epithelial cells detection in urine sediment by light microscopy RARE NRG Crystals detection in urine sediment by light microscopy PRESENT NRG Casts detection in urine sediment by light microscopy NONE NRG Mucus detection in urine sediment by light microscopy NEGATIVE NRG Complete urinalysis with reflex to culture NO NRG Amorphous sediment detection in urine sediment by light microscopy FEW RANDA PHOSPHATE NRG Encounters ACCT No. Visit Date/Time Discharge Status Pt. Type Provider Facility Loc./Unit Complaint [id number] 06/28/2011 13:11:00 06/28/2011 23:59:59 [facility] Outpatient ORACIO JACKSON DO [id number] 10/25/2012 14:58:00 Document Registration [id number] 03/28/2012 14:47:00 Document Registration [id number] 12/03/2017 10:28:00 12/03/2017 12:32:00 DIS Outpatient LUCAS CALLES APRN [facility] ER ABD PAIN [id number] 10/22/2017 10:39:00 10/22/2017 13:41:00 DIS Emergency LUCAS CALLES APRN [facility] ER STOMACH PAIN [id number] 09/08/2017 12:57:00 10/06/2017 11:28:00 DIS Outpatient DAYDAY JACQUES MD [facility] REHAB UPPER AND LOWER BACK PAIN; L ARM PAIN [id number] 09/24/2017 19:08:00 09/24/2017 22:26:00 DIS Emergency SHU CHEN [facility] ER ABDOMINAL PROBLEMS [id number] 09/10/2017 13:47:00 09/10/2017 18:08:00 DIS Emergency AQUILINO DUDLEY MD [facility] ER WEAKNESS/ALMOST PASSED OUT [id number] 08/29/2017 08:15:00 08/29/2017 11:30:00 DIS Outpatient OLIVER ARIAS MD [facility] ENDO WT LOSS/IRREG BM [id number] 08/22/2017 05:39:00 08/22/2017 10:10:00 DIS Outpatient OLIVER ARIAS MD [facility] PREOP COLONOSCOPY/EGD [id number] 08/11/2017 13:07:00 08/11/2017 23:59:59 CLS Outpatient OLIVER ARIAS MD [facility] RAD CHRONIC MESENTERIC ISCHEMIA [id number] 07/18/2017 07:47:00 07/18/2017 23:59:59 CLS Outpatient NATALYA MORAN [employer] [facility] RAD ONGOING ABD PAIN [id number] 07/11/2017 07:30:00 07/11/2017 23:59:59 CLS Outpatient NATALYA MORAN [employer] [facility] RAD ABD PAIN [id number] 07/06/2017 11:30:00 07/06/2017 23:59:59 CLS Preadmit DAYDAY JACQUES MD [facility] REHAB UPPER AND LOWER BACK PAIN; L ARM PAIN [id number] 07/01/2017 10:58:00 07/01/2017 23:59:59 CLS Outpatient NATALYA MORAN [employer] [facility] RAD R10.9 [id number] 06/26/2017 01:53:00 06/26/2017 05:02:00 DIS Emergency JOANIE ZAYDA MEDEIROS [facility] ER CONSTIPATION [id number] 06/25/2017 04:09:00 06/25/2017 08:07:00 DIS Emergency JOANIE ZAYDA MEDEIROS [facility] ER PAIN [id number] 05/12/2017 11:53:00 05/12/2017 23:59:59 CLS Outpatient HARPAL COBURN MD [facility] RAD PROSTATE CANCER [id number] 03/09/2017 19:36:00 03/09/2017 23:59:59 CLS Emergency SEJAL WILSON MD [facility] ER TONGUE BLEEDING [id number] 03/03/2017 10:37:00 03/03/2017 23:59:59 CLS Outpatient ANJALI GRIMES FACCWILNER FACP CCDS [facility] CARD CAD [id number] 12/01/2016 15:48:00 12/01/2016 23:59:59 CLS Outpatient DAYDAY JACQUES MD [facility] RAD SINUS CONGESTION, ETHMOID SINUS INFLAMMATION [id number] 11/11/2016 14:51:00 11/11/2016 23:59:59 CLS Outpatient NATALYA MORAN [employer] [facility] RAD COUGH [id number] 11/08/2016 10:44:00 11/08/2016 12:36:00 DIS Emergency LUCAS CALLES [employer] [facility] ER BLURRED VISION/CONGESTION [id number] 04/14/2016 06:55:00 04/14/2016 13:15:00 DIS Outpatient ALYSA ARCHIBALD MD Via [facility] RIGHT ELBOW BURSITIS [id number] 04/12/2016 10:07:00 04/12/2016 10:35:00 DIS Outpatient ALYSA ARCHIBALD MD [facility] PREOP RIGHT ELBOW BURSITIS [id number] 03/23/2016 07:31:00 03/23/2016 23:59:59 CLS Outpatient GALE MAY [facility] CARD CAD,HYPERLIPIDEMIA [id number] 01/26/2016 14:36:00 01/26/2016 23:59:59 CLS Outpatient DAYDAY JACQUES MD [facility] SDC DEHYDRATION [id number] 12/24/2014 06:27:00 12/26/2014 16:08:00 DIS Outpatient HARPAL COBURN MD [facility] BPH [id number] 12/19/2014 12:47:00 12/19/2014 23:59:59 CLS Outpatient HARPAL COBURN MD [facility] PREOP BPH [id number] 10/09/2014 13:53:00 10/09/2014 16:23:00 DIS Outpatient OLIVER AIRAS MD [facility] ABD. PAIN; CHANGE IN BOWEL HABITS [id number] 10/03/2014 05:50:00 10/03/2014 23:59:59 CLS Outpatient OLIVER ARIAS MD [facility] PREOP ABD. PAIN; CHANGE IN BOWEL HABITS [id number] 10/02/2014 13:11:00 10/02/2014 20:10:00 DIS Outpatient DAYDAY JACQUES MD [facility] SURG RCR ABD PAIN [id number] 09/25/2014 08:00:00 09/25/2014 23:59:59 CLS Outpatient RAMA PAGAN [employer] [facility] RAD ABDOMINAL PAIN [id number] 08/31/2014 16:41:00 08/31/2014 20:26:00 DIS Emergency ZAYDA NAIR DO [facility] ER HIGH BP [id number] 05/21/2014 13:39:00 05/21/2014 23:59:59 CLS Outpatient RAMA PAGAN [employer] [facility] RAD COUGH [id number] 05/18/2014 19:14:00 05/18/2014 21:07:00 DIS Emergency DERICK GRIMES, YANETH Avila [facility] ER SOA [id number] 02/11/2014 11:55:00 02/11/2014 23:59:59 CLS Outpatient ANJALI GRIMES FACC, WILNER HOLT CCDS [facility] CARD BRADYCARDIA, [id number] 10/13/2013 17:17:00 10/13/2013 23:59:59 CLS Outpatient KAREEM CISNEROS DO [facility] LAB COUGH [id number] 12/13/2017 04:16:00 Document Registration [id number] 01/26/2016 14:36:00 Document Registration [id number] 12/09/2011 13:38:00 Document Registration [id number] 11/29/2011 11:26:00 Document Registration [id number] 2011 07:24:00 Document Registration [id number] 03/30/2011 00:00:00 Document Registration [id number] 02/18/2011 13:52:00 Document Registration [id number] 01/29/2011 13:47:00 Document Registration [id number] 01/24/2011 22:29:00 Document Registration [id number] 01/15/2011 17:14:00 Document Registration [id number] 01/13/2011 13:36:00 Document Registration [id number] 01/12/2011 07:38:00 Document Registration [id number] 12/31/2010 09:17:00 Document Registration [id number] 12/26/2010 20:32:00 Document Registration [id number] 11/18/2010 12:35:00 Document Registration [id number] 10/29/2010 13:56:00 Document Registration [id number] 12/24/2014 06:43:32 ACT Document Registration
--- NOTE | 2017-12-19 06:46 | ED GI ---
General Chief Complaint: Abdominal/GI Problems Stated Complaint: CONSTIPATION Nursing Triage Note: PT BROUGHT IN BY EMS WITH COMPLAINT OF CONSTIPATION. PT STATES HE HAS CHRONIC CONSTIPATION. STATES HE TOOK MAG CITRATE AT 3 AM THIS MORNING. Sepsis Screen: No Definite Risk Source of Information: Patient Exam Limitations: No Limitations History of Present Illness Date Seen by Provider: Dec 19, 2017 Time Seen by Provider: 06:00 Initial Comments Here with report of lower abdominal pain. Arrives via EMS. States that he has not had bowel movement for 2 days. He did take a bottle of mag citrate at 3 a.m. this morning but has not had results. He is to follow-up with Dr. Wang, GI specialty, in [place] tomorrow. His multiple visits for abdominal discomfort or complaints. Has fairly significant workup history as well. He is due to get upper endoscopy tomorrow and had colonoscopy in August of this year. Timing/Duration: 1-2 Days Severity/Quality: Mild, Cramping Location: RLQ, LLQ Radiation: No Radiation Activities at Onset: None Modifying Factors: Improves With Other (none) Associated Symptoms: No Back Pain, No Chest Pain, No Fever/Chills, No Nausea/ Vomiting, No Shortness of Air, No Weakness Allergies and Home Medications Allergies Coded Allergies: butorphanol (Verified Allergy, Unknown, 08/22/17) ketorolac (Verified Adverse Reaction, Mild, STATES CAUSES MORE PAIN, ) Home Medications Amlodipine Besylate 10 Mg Tablet, 10 MG PO HS, (Reported) Aspirin 81 Mg Tablet.dr, 81 MG PO DAILY, (Reported) Calcium Polycarbophil 625 Mg Tablet, 625 MG PO DAILY, (Reported) Cefdinir 300 Mg Capsule, 300 MG PO BID Prescribed by: ZAYDA NAIR on 12/13/17 0704 Cetirizine HCl 10 Mg Tablet, 10 MG PO DAILY Prescribed by: JONN REID on 04/14/16 0821 Citalopram Hydrobromide 10 Mg Tablet, 10 MG PO DAILY, (Reported) Clopidogrel Bisulfate 75 Mg Tablet, 75 MG PO DAILY, (Reported) Donepezil HCl 10 Mg Tablet, 10 MG PO HS, (Reported) Famotidine 20 Mg Tablet, 20 MG PO BID Prescribed by: SHU TODD on 09/24/17 2210 Finasteride 5 Mg Tablet, 5 MG PO DAILY, (Reported) Glyburide 1.25 Mg Tablet, 1.25 MG PO DAILY Prescribed by: AQUILINO DUDLEY on 09/10/171816 Lisinopril 20 Mg Tablet, 20 MG PO DAILY, (Reported) Melatonin/Pyridoxine 1 Each Tablet, 5 MG PO HS, (Reported) Meloxicam 15 Mg Tablet, 7.5 MG PO DAILY, (Reported) Memantine HCl 10 Mg Tablet, 10 MG PO BID, (Reported) Metoclopramide HCl 5 Mg Tablet, 5 MG PO ACHS Prescribed by: SHU TODD on 09/24/172209 Mirtazapine 15 Mg Tablet, 15 MG PO DAILY, (Reported) Multivitamin 1 Each Capsule, 1 EACH PO DAILY, (Reported) Pantoprazole Sodium 40 Mg Tablet.dr, 40 MG PO DAILY Prescribed by: LUCAS CALLES on 10/22/17 132 Ropinirole HCl 0.25 Mg Tab, 0.25 MG PO BID Prescribed by: JONN REID on 04/14/16 0825 Solifenacin Succinate 5 Mg Tablet, 5 MG PO DAILY, (Reported) Sucralfate 1 Gm Tablet, 1 GM PO ACHS makes with 2 teaspoon of water to dissolve into a slurry. Alternatively, may swallow the tablet in solid form Prescribed by: LUCAS CALLES on 10/22/17 132 Patient Home Medication List Home Medication List Reviewed: Yes Review of Systems Constitutional: see HPI; No chills, No fever Respiratory: No Symptoms Reported Cardiovascular: No Symptoms Reported Gastrointestinal: See HPI, Constipated; Denies Diarrhea, Denies Nausea, Denies Vomiting Genitourinary: No Symptoms Reported Musculoskeletal: no symptoms reported Past Owmvqwp-Obnekw-Rhacie Hx Past Med/Social Hx: Reviewed Nursing Past Med/Soc Hx Patient Social History Alcohol Use: Past History Recreational Drug Use: No Smoking Status: Never a Smoker 2nd Hand Smoke Exposure: No Recent Foreign Travel: No Contact w/Someone Who Travel: No Recent Infectious Disease Expo: No Recent Hopitalizations: No Immunizations Up To Date Tetanus Booster (TDap): Less than 5yrs Date of Pneumonia Vaccine: May 09, 2012 Date of Influenza Vaccine: Feb 06, 2017 Seasonal Allergies Seasonal Allergies: No Past Medical History Surgeries: Yes (BILAT INGHERNIA ,CATARACT SURGERY, TURP) Abdominal, Adenoidectomy, Cardiac, Coronary Stent, Eye Surgery, Orthopedic, Tonsillectomy, Transurethral Resection Respiratory: No Cardiac: Yes (STENTS X2) Coronary Artery Disease, High Cholesterol, Hypertension Neurological: Yes (1993-STROKE) Dementia, Stroke Reproductive Disorders: No Sexually Transmitted Disease: No HIV/AIDS: No Genitourinary: Yes (HX TURP; PROSTATE CANCER) Benign Prostatic Hyperpl, Prostate Problems Gastrointestinal: Yes ("GASTRIC EROSIONS") Gastroesophageal Reflux, Chronic Constipation, Diverticulosis, Ulcer, Irritable Bowel Musculoskeletal: Yes (ARTHRITIS) Arthritis Endocrine: No HEENT: Yes Cataract Loss of Vision: Bilateral Hearing Impairment: Hard of Hearing, Bilateral Hearing Aide Cancer: Yes (?) Prostate Did You Recieve Any Treatments: No Psychosocial: No Integumentary: No Blood Disorders: No Adverse Reaction/Blood Tranf: No (HAS HAD BLOOD WITH NO REACTION) Family Medical History Reviewed Nursing Family Hx No Pertinent Family Hx Physical Exam Vital Signs Vital Signs - First Documented 12/19/17 05:56 Temp 98.0 Pulse 71 Resp 17 B/P (MAP) 145/88 (107) Pulse Ox 97 O2 Delivery Room Air Capillary Refill : Less Than 3 Seconds Height/Weight/BMI Height: 5'8.00" Weight: 140lbs. 0oz. 63.682983cz; 20.2 BMI Method:Estimated General Appearance: WD/WN, no apparent distress HEENT: PERRL/EOMI, pharynx normal Neck: full range of motion, supple Respiratory: lungs clear, normal breath sounds Cardiovascular: regular rate, rhythm, no murmur Peripheral Pulses: 2+ Dorsalis Pedis (R), 2+ Left Dors-Pedis (L), 2+ Radial Pulses (R), 2+ Radial Pulses (L) Gastrointestinal: non tender, soft, abnormal bowel sounds (hyperactive gurgly sounding) Extremities: non-tender, normal inspection Back: normal inspection, no CVA tenderness, no vertebral tenderness Neurologic/Psychiatric: alert, oriented x 3 Skin: normal color, warm/dry Progress/Results/Core Measures Results/Orders My Orders Orders - AQUILINO DUDLEY MD Acute Abd Series (12/19/17 06:29) Vital Signs/I&O 12/19/17 05:56 Temp 98.0 Pulse 71 Resp 17 B/P (MAP) 145/88 (107) Pulse Ox 97 O2 Delivery Room Air Blood Pressure Mean: 107 Progress Progress Note : Progress Note Seen and evaluated. We will get acute abdominal series. Not significantly tender on exam definitely hyperactive bowel sounds currently which may be related to the mag citrate. Monitor patient. 0747: Patient did have a good bowel movement. Feeling a little better. He does have appointment with GI specialty tomorrow. Discharged home with return precautions. Patient verbalize understanding instructions and agreement with plan. Departure Impression Primary Impression: Constipation Qualified Codes: K59.00 - Constipation, unspecified Disposition: HOME, SELF-CARE Condition: Improved Departure-Patient Inst. Decision time for Depature: 07:53 Referrals: DAYDAY JACQUES MD (PCP/Family) Primary Care Physician Patient Instructions: Constipation, Adult (DC) Add. Discharge Instructions: All discharge instructions reviewed with patient and/or family. Voiced understanding. Continue home medications as directed. Keep appointment with your GI specialist tomorrow. Return for worse pain, fever, vomiting, weakness, rhythm problems or other concerns as needed. Drink plenty of fluids. AQUILINO DUDLEY MD Dec 19, 2017 06:46
--- NOTE | 2017-12-19 07:36 | Diagnostic Imaging Report ---
INDICATION: Abdominal pain with constipation EXAMINATION: Abdominal series 12/19/2017 FINDINGS: Three views of the abdomen and chest demonstrate mild improvement in the right base infiltrate or abnormality previously described. Elevation of the right hemidiaphragm, however, may obscure this process as it is new since prior imaging. The remaining lungs appear clear. There is no pneumothorax. Within the abdomen, dilated loops of large bowel seen diffusely throughout the abdomen. There is a fair amount of air within a slightly dilated rectum. Multiple air-fluid levels noted on the upright view. No definite free air seen beneath diaphragm. Postoperative change seen in the lower abdomen and to the pelvis. Similar findings in the midline of the abdomen. There is a fairly marked scoliotic deformity of the spine. IMPRESSION: 1. No acute process in the chest. 2. Possible colonic ileus with an early obstructive process not excluded. Clinical correlation and followup recommended. Dictated by: Dictated on workstation # [id number]
== END 2017-12-19 08:02 | disposition home or self-care (01) ==
LOC: EDUNIT# 05:56 → ER 05:57
DX: K59.00 Constipation, unspecified (principal); I25.10 Atherosclerotic heart disease of native coronary artery without angina pectoris; E78.00 Pure hypercholesterolemia, unspecified; I10 Essential (primary) hypertension; F03.90 Unspecified dementia, unspecified severity, without behavioral disturbance, psychotic disturbance, mood disturbance, and anxiety; K21.9 Gastro-esophageal reflux disease without esophagitis; Z87.19 Personal history of other diseases of the digestive system; Z85.46 Personal history of malignant neoplasm of prostate; Z86.73 Personal history of transient ischemic attack (TIA), and cerebral infarction without residual deficits; Z88.8 Allergy status to other drugs, medicaments and biological substances; Z88.7 Allergy status to serum and vaccine; Z79.82 Long term (current) use of aspirin; Z79.02 Long term (current) use of antithrombotics/antiplatelets; Z79.84 Long term (current) use of oral hypoglycemic drugs; Z98.890 Other specified postprocedural states; Z95.5 Presence of coronary angioplasty implant and graft; Z90.89 Acquired absence of other organs
CPT/HCPCS: 74022; 99283

== ENCOUNTER 2018-01-06 12:20 | Emergency (ER) | payer MEDICARE ==
[~2018-01-06] VITALS: Ht 175.3 cm; Wt 61.2 kg
[~2018-01-06 12:20] MED LIST changes: -AMLO10TA2 PO; +AMLO10TA6 PO; +FLUT9.9S NSEACH
--- NOTE | 2018-01-06 12:56 | ED General ---
General Chief Complaint: Respiratory Problems Stated Complaint: SOA Nursing Triage Note: TO ED PER EMS FROM HOME. PATIENT REPORTS HAS BEEN FEELING SOA SINCE HE WAS SEEN 12/26 AND 12/28. NO DISTRESS NOTED. Nursing Sepsis Screen: No Definite Risk Source of Information: Patient Exam Limitations: No Limitations History of Present Illness Date Seen by Provider: Jan 06, 2018 Time Seen by Provider: 12:30 Initial Comments This 87-year-old gentleman presents to the emergency room with primary complaint of shortness of breath. He has been seen numerous times in the ER this month for respiratory and abdominal complaints. He has been worked up previously without any significant pathology identified. He was also seen in Dr. Carlos's office yesterday. He denies any chest pain. He has a chronic dry cough. I had previously prescribed him Flonase for postnasal drip which he states he has been using. Patient also has unchanged chronic abdominal discomfort for which she has been seeing Dr. Emery. Patient seems somewhat anxious on this visit and on prior visits. 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 Allergies and Home Medications Allergies Coded Allergies: butorphanol (Verified Allergy, Unknown, 08/22/17) ketorolac (Verified Adverse Reaction, Mild, STATES CAUSES MORE PAIN, ) Home Medications Alprazolam 0.25 Mg Tablet, 0.25 MG PO BID PRN for ANXIETY Prescribed by: LUCAS CALLES on 01/07/18 1402 Amlodipine Besylate 10 Mg Tablet, 10 MG PO HS, (Reported) Aspirin 81 Mg Tablet.dr, 81 MG PO DAILY, (Reported) Calcium Polycarbophil 625 Mg Tablet, 625 MG PO DAILY, (Reported) Cefdinir 300 Mg Capsule, 300 MG PO BID Prescribed by: ZAYDA NAIR on 12/13/17 0704 Cetirizine HCl 10 Mg Tablet, 10 MG PO DAILY Prescribed by: JONN REID on 04/14/16 0821 Citalopram Hydrobromide 10 Mg Tablet, 10 MG PO DAILY, (Reported) Clopidogrel Bisulfate 75 Mg Tablet, 75 MG PO DAILY, (Reported) Donepezil HCl 10 Mg Tablet, 10 MG PO HS, (Reported) Famotidine 20 Mg Tablet, 20 MG PO BID Prescribed by: SHU TODD on 09/24/17 2210 Finasteride 5 Mg Tablet, 5 MG PO DAILY, (Reported) Fluticasone Propionate 9.9 Ml [place].susp, 2 SPRAY NSEACH DAILY 2 SPRAYS PER NOSTRIL DAILY X 2 DAYS THEN 1 SPRAY DAILY Prescribed by: YANETH BRICEÑO on 12/26/17 1544 Glyburide 1.25 Mg Tablet, 1.25 MG PO DAILY Prescribed by: AQUILINO DUDLEY on 09/10/17 1817 Lisinopril 20 Mg Tablet, 20 MG PO DAILY, (Reported) Melatonin/Pyridoxine 1 Each Tablet, 5 MG PO HS, (Reported) Meloxicam 15 Mg Tablet, 7.5 MG PO DAILY, (Reported) Memantine HCl 10 Mg Tablet, 10 MG PO BID, (Reported) Metoclopramide HCl 5 Mg Tablet, 5 MG PO ACHS Prescribed by: SHU TODD on 09/24/172209 Mirtazapine 15 Mg Tablet, 15 MG PO DAILY, (Reported) Multivitamin 1 Each Capsule, 1 EACH PO DAILY, (Reported) Pantoprazole Sodium 40 Mg Tablet.dr, 40 MG PO DAILY Prescribed by: LUCAS CALLES on 10/22/17 1326 Ropinirole HCl 0.25 Mg Tab, 0.25 MG PO BID Prescribed by: JONN REID on 04/14/16 0825 Solifenacin Succinate 5 Mg Tablet, 5 MG PO DAILY, (Reported) Sucralfate 1 Gm Tablet, 1 GM PO ACHS makes with 2 teaspoon of water to dissolve into a slurry. Alternatively, may swallow the tablet in solid form Prescribed by: LUCAS CALLES on 10/22/17 1326 Patient Home Medication List Home Medication List Reviewed: Yes Review of Systems Review of Systems Constitutional: no symptoms reported EENTM: no symptoms reported Respiratory: see HPI Cardiovascular: no symptoms reported Gastrointestinal: see HPI Genitourinary: no symptoms reported Musculoskeletal: no symptoms reported Skin: no symptoms reported Psychiatric/Neurological: See HPI Hematologic/Lymphatic: No Symptoms Reported Immunological/Allergic: no symptoms reported Past Jjonljz-Cwgxom-Nzhbjw Hx Patient Social History Alcohol Use: Denies Use Recreational Drug Use: No Smoking Status: Never a Smoker 2nd Hand Smoke Exposure: No Recent Foreign Travel: No Contact w/Someone Who Travel: No Recent Infectious Disease Expo: No Recent Hopitalizations: No Immunizations Up To Date Tetanus Booster (TDap): Less than 5yrs Date of Pneumonia Vaccine: May 09, 2012 Date of Influenza Vaccine: Feb 06, 2017 Seasonal Allergies Seasonal Allergies: No Past Medical History Surgeries: Yes Abdominal, Adenoidectomy, Cardiac, Coronary Stent, Eye Surgery, Orthopedic, Tonsillectomy, Transurethral Resection Respiratory: No Cardiac: Yes (STENTS X2) Coronary Artery Disease, High Cholesterol, Hypertension Neurological: Yes (1993-STROKE; RESTLESS LEG SYNDROME) Dementia, Stroke Reproductive Disorders: No Sexually Transmitted Disease: No HIV/AIDS: No Genitourinary: Yes (HX TURP; PROSTATE CANCER) Benign Prostatic Hyperpl, Prostate Problems Gastrointestinal: Yes ("GASTRIC EROSIONS") Gastroesophageal Reflux, Chronic Constipation, Diverticulosis, Ulcer, Irritable Bowel Musculoskeletal: Yes (ARTHRITIS; RESTLESS LEG SYNDROME) Arthritis Endocrine: Yes Diabetes, Non-Insulin dep HEENT: Yes Cataract Loss of Vision: Bilateral Hearing Impairment: Hard of Hearing, Bilateral Hearing Aide Cancer: Yes Prostate Did You Recieve Any Treatments: Yes What Type of Treatment Did You: Surgical Intervention Psychosocial: No Integumentary: No Blood Disorders: No Adverse Reaction/Blood Tranf: No (HAS HAD BLOOD WITH NO REACTION) Family Medical History No Pertinent Family Hx Physical Exam Vital Signs Vital Signs - First Documented 01/06/18 12:20 Temp 97.6 Pulse 83 Resp 18 B/P (MAP) 118/81 (93) Pulse Ox 99 O2 Delivery Room Air Capillary Refill : Less Than 3 Seconds Height, Weight, BMI Height: 5'9.00" Weight: 135lbs. 0oz. 61.056009qa; 20.2 BMI Method:Stated General Appearance: WD/WN, Anxious, Thin HEENT: PERRL/EOMI, Normal ENT Inspection, Other (Oropharynx somewhat dry) Neck: Normal Inspection Respiratory: Lungs Clear, Normal Breath Sounds, No Accessory Muscle Use, No Respiratory Distress Cardiovascular: Regular Rate, Rhythm, No Edema, No Murmur Gastrointestinal: Normal Bowel Sounds, Soft, Tenderness (Minimal tenderness in the upper abdomen stated as chronic and unchanged) Extremity: Normal Inspection, No Pedal Edema Neurologic/Psychiatric: Alert, Oriented x3, No Motor/Sensory Deficits, architectural associate II- XII Norm as Tested, Other (Anxious) Skin: Normal Color, Warm/Dry Progress/Results/Core Measures Suspected Sepsis Recent Fever Within 48 Hours: No Infection Criteria Present: None New/Unexplained Altered Menta: No Sepsis Screen: No Definite Risk SIRS Temperature:97.6 Pulse: 83 Respiratory Rate: 18 Blood Pressure 118 /81 Mean: 93 Results/Orders Vital Signs/I&O Capillary Refill : Less Than 3 Seconds Blood Pressure Mean: 93 Progress Note : Progress Note Exam and vital signs are unchanged from prior with no acute significant findings. Case was discussed with Dr. Carlos. Patient just been seen in her office yesterday. Vital signs were normal and exam was unremarkable except for dry cough. After discussion with Dr. Carlos, we elected to stop lisinopril as this may be the cause of his recurrent dry cough. Further workup was not felt necessary as there do not seem to be any acute changes since his prior workups. Patient was given reassurance and dismissed home with instructions. Anxiety is felt to be a significant component of his recurrent visits to the ER. Departure Impression Primary Impression: Dyspnea Qualified Codes: R06.00 - Dyspnea, unspecified Additional Impressions: Dry cough Anxiety Disposition: 01 HOME, SELF-CARE Condition: Stable Departure-Patient Inst. Decision time for Depature: 12:52 Referrals: DAYDAY CARLOS MD (PCP/Family) Primary Care Physician Patient Instructions: Anxiety, Adult (DC) Add. Discharge Instructions: 1. Drink plenty of clear liquids. 2. Stop the medications Dr. Carlos asked you to stop. 3. Stop lisinopril. It may be causing your cough. If lisinopril is the cause of your cough, cough should improved within one week. 4. Follow-up with Dr. Carlos within one week for a blood pressure check. Lisinopril is a blood pressure medication, so your blood pressure should be checked after you have stopped it for several days. 5. Wait at least one week after stopping lisinopril before you try the promethazine with codeine cough syrup. If cough resolves after stopping lisinopril, then do not take the promethazine with codeine. 6. Return to care if symptoms worsen. All discharge instructions reviewed with patient and/or family. Voiced understanding. Copy Copies To 1: DAYDAY CARLOS MD, JOSHUA T MD Jan 06, 2018 12:56
[2018-01-06 13:00] VITALS: BP 118/76
[2018-01-07] MEDS ORDERED: ALPR0.25 PO (14:02)
== END 2018-01-06 13:03 | disposition home or self-care (01) ==
LOC: EDUNIT# 12:20 → ER 12:21
DX: R06.02 Shortness of breath (principal); R05 Cough; F41.9 Anxiety disorder, unspecified; F03.90 Unspecified dementia, unspecified severity, without behavioral disturbance, psychotic disturbance, mood disturbance, and anxiety; I25.10 Atherosclerotic heart disease of native coronary artery without angina pectoris; E78.00 Pure hypercholesterolemia, unspecified; I10 Essential (primary) hypertension; G25.81 Restless legs syndrome; E11.9 Type 2 diabetes mellitus without complications; Z87.19 Personal history of other diseases of the digestive system; Z85.46 Personal history of malignant neoplasm of prostate; Z86.73 Personal history of transient ischemic attack (TIA), and cerebral infarction without residual deficits; Z88.8 Allergy status to other drugs, medicaments and biological substances; Z79.51 Long term (current) use of inhaled steroids; Z79.84 Long term (current) use of oral hypoglycemic drugs; Z95.5 Presence of coronary angioplasty implant and graft; Z90.89 Acquired absence of other organs; Z98.890 Other specified postprocedural states; Z79.82 Long term (current) use of aspirin; Z79.02 Long term (current) use of antithrombotics/antiplatelets
CPT/HCPCS: 99283

== ENCOUNTER 2018-01-07 12:33 | Emergency (ER) | payer MEDICARE ==
[~2018-01-07] VITALS: Ht 175.3 cm; Wt 61.2 kg
--- OUTSIDE RECORDS SUMMARY | 2018-01-07 12:37 | XMS REPORT | Clinical Summary ---
Author Author [facility] Organization [facility] Address Unknown Phone Unavailable Care Team Providers Care Cull Grader Name Role Phone No Pcp, Na PCP Unavailable Source Comments Some departments are not documenting in the electronic medical record. If you do not see the information that you expected, contact Release of Information in the Health Information Management department at [phone] for further assistance in locating additional records.[facility] Allergies Not on File Current Medications [...]
--- OUTSIDE RECORDS SUMMARY | 2018-01-07 12:47 | XMS REPORT | CCD ---
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 Name Role Phone [facility] PP Unavailable CCM Unavailable Summary Purpose Interface Exchange Insurance Providers Payer name Policy type / Coverage type Covered green party ID Effective Begin Date Effective End Date WPS Medicare Part B Medicare Part B [id number] Unknown Unknown [facility] Medicare Part B [id number] Unknown Unknown Family history Runs in the family Diagnosis Age At Onset No Family Disease Entered N/A Mother Diagnosis Age At Onset No Family Disease Entered N/A Father Diagnosis Age At Onset Heart disease Unknown Social History Social History Element Codes Description Effective Dates Number of children Unknown 3 ([place], [place], [place]) 10/13/2017 Living arrangements Unknown House 01/11/2011 Number of adults in household Unknown 2 01/11/2011 Education level Unknown Post-Graduate PHD in chemistry 01/11/2011 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 Unknown Has never used illegal drugs 01/06/2011 Allergies, Adverse Reactions, Alerts Substance Reaction Codes Entered Date Inactivated Date Status * NO KNOWN FOOD ALLERGIES Unknown 04/19/2011 No Inactive Date Active Toradol RxNorm: 89970 03/05/2011 No Inactive Date Active Lisinopril cough, Unknown 03/25/2014 No Inactive Date Active Past Medical History Illness Codes Condition Status Onset Date Resolved Date Essential (primary) hypertension ICD-9: 401.1 ICD-10: I10 Active 03/21/2017 Unknown Irritable bowel syndrome with constipation ICD-9: 564.1 ICD-10: K58.1 Active 07/01/2017 Unknown Malignant neoplasm of prostate ICD-9: 185 ICD-10: C61 Active 11/14/2017 Unknown Gastro-esophageal reflux disease without esophagitis ICD-9: 530.81 ICD-10: K21.9 Active 03/04/2015 Unknown Slow transit constipation ICD-9: 564.01 ICD-10: K59.01 Active 07/20/2017 Unknown Underweight ICD-9: 783.22 ICD-10: R63.6 Active 10/13/2017 Unknown Dysuria ICD-9: 788.1 ICD-10: R30.0 Active 09/26/2017 Unknown Gastroparesis ICD-9: 536.3 ICD-10: K31.84 Active 07/20/2017 Unknown Other abnormal glucose ICD-9: 790.29 ICD-10: R73.09 Active 09/12/2017 Unknown Other fatigue ICD-9: 780.79 ICD-10: R53.83 Active 09/09/2017 Unknown Cervicalgia ICD-9: 723.1 ICD-10: M54.2 Active 06/21/2017 Unknown Gas pain ICD-9: 787.3 ICD-10: R14.1 [...] ICD-9: 272.4 ICD-10: E78.2 Active 01/24/2012 Unknown Major depressive disorder, single episode, mild [...] hypertension ICD-9: 401.1 ICD-10: I10 03/21/2017 Active Irritable bowel syndrome with constipation ICD-9: 564.1 ICD-10: K58.1 07/01/2017 Active Malignant neoplasm of prostate ICD-9: 185 ICD-10: C61 11/14/2017 Active Gastro-esophageal reflux disease without esophagitis ICD-9: 530.81 ICD-10: K21.9 03/04/2015 Active Slow transit constipation ICD-9: 564.01 ICD-10: K59.01 07/20/2017 Active Underweight ICD-9: 783.22 ICD-10: R63.6 10/13/2017 Active Dysuria ICD-9: 788.1 ICD-10: R30.0 09/26/2017 Active Gastroparesis ICD-9: 536.3 ICD-10: K31.84 07/20/2017 Active Other abnormal glucose ICD-9: 790.29 ICD-10: R73.09 09/12/2017 Active Other fatigue ICD-9: 780.79 ICD-10: R53.83 09/09/2017 Active Cervicalgia ICD-9: 723.1 ICD-10: M54.2 06/21/2017 Active Gas pain ICD-9: 787.3 ICD-10: R14.1 [...] hyperlipidemia ICD-9: 272.4 ICD-10: E78.2 01/24/2012 Active Major depressive disorder, single episode, mild [...] Fill Instructions clopidogrel 75 mg tablet RxNorm: 687507 TAKE 1 TABLET BY MOUTH EVERY DAY 12/26/2017 06/23/2018 Active Namenda 10 mg tablet RxNorm: 077776 Tablet(s) TAKE 1 TABLET BY MOUTH TWICE DAILY. 12/15/2017 No Stop Date Active Robinul 1 mg tablet RxNorm: 588908 1/2 Tablet(s) PO AC & HS 12/14/2017 Inactive Robinul 1 mg tablet RxNorm: 785731 1/2 Tablet(s) PO AC & HS 12/11/2017 Inactive donepezil 10 mg tablet RxNorm: 701971 1 TABLET(S) PO DAILY TAKE 1 TABLET BY MOUTH ONCE DAILY 12/08/2017 12/11/2017 Inactive Patient requests 90 days supply lisinopril 20 mg tablet RxNorm: 820107 TAKE 1 TABLET DAILY 06/02/2018 Active Cymbalta 30 mg capsule,delayed release RxNorm: 278086 1 Capsule(s) PO daily 12/05/2017 04/03/2018 Active Cymbalta 30 mg capsule,delayed release RxNorm: 113426 1 Capsule(s) PO daily 12/05/2017 12/04/2017 Inactive Trulance 3 mg tablet RxNorm: 7919990 1 Tablet(s) PO daily 11/1412/13/2017 Inactive Linzess 145 mcg capsule RxNorm: 0203550 1 Capsule(s) PO daily 10/28/2017 12/14/2017 Inactive Zantac 150 mg tablet RxNorm: 770422 1 Tablet(s) PO QAM 201705/10/2018 Active mirtazapine 15 mg tablet RxNorm: 639687 TAKE ONE TABLET BY MOUTH EVERY DAY 09/29/2017 09/23/2018 Active Mobic 15 mg tablet RxNorm: 293533 1/2 TABLET(S) DAILY 201703/24/2018 Active lisinopril 20 mg tablet RxNorm: 710011 1/2 Tablet(s) daily 12/201702/03/2018 Active amlodipine 10 mg tablet RxNorm: 255353 TAKE 1 TABLET BY MOUTH EVERY DAY 09/09/2017 03/07/2018 Active Reglan 5 mg tablet RxNorm: 797984 1/2 Tablet(s) PO TID may increase up to a full pill three times daily as needed for poor GI motility 09/17/2017 Inactive Protonix 40 mg tablet,delayed release RxNorm: 810136 1 Tablet(s) PO daily 07/04/2017 01/29/2018 Active clopidogrel 75 mg tablet RxNorm: 306796 TAKE 1 TABLET BY MOUTH EVERY DAY 06/20/2017 12/16/2017 Inactive cetirizine 10 mg tablet RxNorm: 2021743 TABLET(S) 1 TABLET(S) PO DAILY TO TAKE INSTEAD OF THE CLARITIN 06/06/20172017 Active lisinopril 20 mg tablet RxNorm: 453519 TAKE 1 TABLET DAILY 09/12/2017 Inactive Mobic 15 mg tablet RxNorm: 677214 1/2 TABLET(S) DAILY 201609/16/2017 Inactive donepezil 10 mg tablet RxNorm: 976688 1 Tablet(s) PO daily TAKE 1 TABLET BY MOUTH ONCE DAILY 02/28/2017 11/24/2017 Inactive Patient requests 90 days supply Requip 0.25 mg tablet RxNorm: 737025 1 TABLET(S) PO BID 201606/22/2017 Inactive Patient requests 90 days supply clopidogrel 75 mg tablet RxNorm: 275240 TAKE 1 TABLET BY MOUTH EVERY DAY 12/23/2016 06/19/2017 Inactive lisinopril 20 mg tablet RxNorm: 189983 TAKE 1 TABLET DAILY 05/24/2017 Inactive Kenalog 40 mg/mL suspension for injection RxNorm: 9859088 Milliliter(s) Inj 11/25/2016 11/25/2016 Inactive cefdinir 300 mg capsule RxNorm: 372144 1 Capsule(s) PO BID 11/27/2016 Inactive cefdinir 300 mg capsule RxNorm: 345441 1 Capsule(s) PO BID 11/22/2016 Inactive nystatin 100,000 unit/mL oral suspension RxNorm: 404304 5 Milliliter(s) PO QID 11/18/2016 11/27/2016 Inactive azithromycin 250 mg tablet RxNorm: 487186 1 Tablet(s) PO UD 2 pills on day #1 then one pill daily x 4 more days 11/18/2016 11/22/2016 Inactive Mobic 15 mg tablet RxNorm: 685712 1/2 TABLET(S) DAILY 201603/20/2017 Inactive citalopram 10 mg tablet RxNorm: 610924 TAKE 1 TABLET BY MOUTH EVERY DAY 10/07/2016 03/05/2017 Inactive Patient requests 90 days supply mirtazapine 15 mg tablet RxNorm: 935097 TAKE ONE TABLET BY MOUTH EVERY DAY 10/06/2016 09/28/2017 Inactive mirtazapine 15 mg tablet RxNorm: 110066 TAKE ONE TABLET BY MOUTH EVERY DAY 10/05/2016 10/05/2016 Inactive Patient requests 90 days supply amlodipine 10 mg tablet RxNorm: 867726 TAKE 1 TABLET BY MOUTH EVERY DAY 09/14/2016 01/24/2017 Inactive clopidogrel 75 mg tablet RxNorm: 182438 TAKE 1 TABLET BY MOUTH EVERY DAY 06/28/2016 12/22/2016 Inactive lisinopril 20 mg tablet RxNorm: 143367 TAKE 1 TABLET DAILY 11/25/2016 Inactive donepezil 10 mg tablet RxNorm: 128240 TAKE 1 TABLET BY MOUTH ONCE DAILY 05/11/2016 11/06/2016 Inactive donepezil 10 mg tablet RxNorm: 258993 TAKE 1 TABLET BY MOUTH ONCE DAILY 04/26/2016 02/28/2017 Inactive Mobic 15 mg tablet RxNorm: 525214 1/2 Tablet(s) daily 201510/15/2016 Inactive citalopram 10 mg tablet RxNorm: 085004 TAKE 1 TABLET BY MOUTH EVERY DAY 04/06/2016 04/25/2016 Inactive cetirizine 10 mg tablet RxNorm: 2208319 Tablet(s) 1 TABLET(S) PO DAILY TO TAKE INSTEAD OF THE CLARITIN 03/30/20162016 Inactive amlodipine 10 mg tablet RxNorm: 532266 TAKE 1 TABLET BY MOUTH EVERY DAY 03/08/2016 01/24/2017 Inactive amlodipine 10 mg tablet RxNorm: 975545 1 Tablet(s) PO daily TAKE 1 TABLET BY MOUTH ONCE DAILY 03/03/2016 03/07/2016 Inactive Requip 0.25 mg tablet RxNorm: 489426 1 Tablet(s) PO BID 201509/13/2016 Inactive Mobic 15 mg tablet RxNorm: 480297 1 Tablet(s) daily not refilled on 02/23/2016 04/18/2016 Inactive cetirizine 10 mg tablet RxNorm: 4048305 1 TABLET(S) PO DAILY TO TAKE INSTEAD OF THE CLARITIN 02/19/2016 03/19/2016 Inactive lisinopril 20 mg tablet RxNorm: 314343 TAKE 1 TABLET DAILY 04/201605/17/2016 Inactive Namenda 10 mg tablet RxNorm: 436376 Tablet(s) TAKE 1 TABLET BY MOUTH TWICE DAILY. 02/17/2016 12/14/2017 Inactive lisinopril 20 mg tablet RxNorm: 949678 TAKE 1 TABLET DAILY 01/24/2017 Inactive cetirizine 10 mg tablet RxNorm: 6334724 1 Tablet(s) PO daily to take instead of the claritin 01/21/2016 02/18/2016 Inactive amlodipine 10 mg tablet RxNorm: 939252 1 Tablet(s) PO daily TAKE 1 TABLET BY MOUTH ONCE DAILY 12/02/2015 03/02/2016 Inactive clopidogrel 75 mg tablet RxNorm: 713898 TAKE 1 TABLET BY MOUTH EVERY DAY 11/25/2015 05/22/2016 Inactive Mobic 15 mg tablet RxNorm: 284986 TAKE(1/2) TABLET DAILY. 03/201602/22/2016 Inactive lisinopril 20 mg tablet RxNorm: 851590 TAKE 1 TABLET DAILY 03/201601/15/2016 Inactive Mobic 15 mg tablet RxNorm: 793937 1/2 Tablet(s) PO daily TAKE (1/2) TABLET DAILY. 11/12/2015 11/16/2015 Inactive citalopram 10 mg tablet RxNorm: 130126 TAKE 1 TABLET BY MOUTH EVERY DAY 10/27/2015 04/05/2016 Inactive Requip 0.25 mg tablet RxNorm: 090914 1 Tablet(s) PO BID 201502/11/2016 Inactive Requip 0.25 mg tablet RxNorm: 545817 1 Tablet(s) PO BID 201510/14/2015 Inactive mirtazapine 15 mg tablet RxNorm: 335594 1 Tablet(s) PO daily 10/01/2016 Inactive donepezil 10 mg tablet RxNorm: 323920 TAKE 1 TABLET DAILY 08/3104/25/2016 Inactive amlodipine 10 mg tablet RxNorm: 442774 1 Tablet(s) PO daily TAKE 1 TABLET BY MOUTH ONCE DAILY 08/18/2015 12/01/2015 Inactive clopidogrel 75 mg tablet RxNorm: 419101 1 Tablet(s) PO daily TAKE 1 TABLET DAILY 05/20/2015 11/24/2015 Inactive Mobic 15 mg tablet RxNorm: 382489 Tablet(s) TAKE (1/2) TABLET DAILY. 04/23/2015 10/19/2015 Inactive lisinopril 20 mg tablet RxNorm: 567708 TAKE 1 TABLET DAILY 11/16/2015 Inactive Mobic 15 mg tablet RxNorm: 544048 TAKE (1/2) TABLET DAILY. 04/22/2015 Inactive sulfamethoxazole 400 mg-trimethoprim 80 mg tablet RxNorm: 008040 1/2 Tablet(s) PO daily 03/11/2015 04/09/2015 Inactive Vesicare 5 mg tablet RxNorm: 117887 1 Tablet(s) PO 03/11/2015 05/09/2015 Inactive Protonix 40 mg tablet,delayed release RxNorm: 120376 1 Tablet(s) PO BID 03/05/2015 09/30/2015 Inactive ok to change from [address] Carlos clopidogrel 75 mg tablet RxNorm: 939747 1 Tablet(s) PO daily TAKE 1 TABLET DAILY 02/20/2015 05/19/2015 Inactive Namenda 10 mg tablet RxNorm: 080707 Tablet(s) TAKE 1 TABLET BY MOUTH TWICE DAILY. 01/22/2015 02/16/2016 Inactive amlodipine 10 mg tablet RxNorm: 997456 TAKE 1 TABLET BY MOUTH ONCE DAILY 01/14/2015 08/17/2015 Inactive donepezil 10 mg tablet RxNorm: 427972 TAKE 1 TABLET DAILY 01/0608/31/2015 Inactive Levsin 0.125 mg tablet RxNorm: 5933809 1 Tablet(s) PO QID as needed FOR ABD PAIN 11/05/2014 12/03/2014 Inactive Mobic 15 mg tablet RxNorm: 116089 1/2 Tablet(s) daily TAKE (1/2) TABLET DAILY. 10/01/2014 04/21/2015 Inactive ciprofloxacin 500 mg tablet RxNorm: 126665 1 Tablet(s) PO BID 09/27/2014 10/01/2014 Inactive Flagyl 500 mg tablet RxNorm: 930173 1 Tablet(s) PO TID 201410/03/2014 Inactive take probiotic BID donepezil 10 mg tablet RxNorm: 171767 1/2 Tablet(s) PO BID 01/05/2015 Inactive lisinopril 20 mg tablet RxNorm: 980397 TAKE 1 TABLET DAILY 04/21/2015 Inactive amlodipine 10 mg tablet RxNorm: 122901 1 Tablet(s) PO daily 12/30/2014 Inactive mirtazapine 15 mg tablet RxNorm: 024095 1 Tablet(s) PO daily 09/07/2015 Inactive donepezil 10 mg tablet RxNorm: 529226 1 Tablet(s) PO daily 09/23/2014 Inactive citalopram 10 mg tablet RxNorm: 522746 1 Tablet(s) PO daily 03/25/2015 Inactive citalopram 10 mg tablet RxNorm: 175877 1 Tablet(s) PO daily 05/201408/27/2014 Inactive citalopram 10 mg tablet RxNorm: 594401 1 Tablet(s) PO daily 05/201408/06/2014 Inactive Flagyl 500 mg tablet RxNorm: 663553 1 Tablet(s) PO TID 201408/01/2014 Inactive take probiotic BID Flagyl 500 mg tablet RxNorm: 642730 1 Tablet(s) PO TID 201408/08/2014 Inactive take probiotic BID tamsulosin ER 0.4 mg capsule,extended release 24 hr RxNorm: 496408 1 Capsule(s) PO QHS 06/06/2014 03/10/2015 Inactive TAKE AT BEDTIME escitalopram 5 mg tablet RxNorm: 971373 1 Tablet(s) PO QPM 08/06/2014 Inactive doxycycline hyclate 100 mg tablet RxNorm: 668200 1 Tablet(s) PO BID 05/31/2014 05/30/2014 Inactive doxycycline hyclate 100 mg tablet RxNorm: 886608 1 Tablet(s) PO BID 05/31/2014 06/06/2014 Inactive please deliver if not picked by 3pm Aricept 5 mg tablet RxNorm: 432203 1 Tablet(s) PO BID 201408/27/2014 Inactive losartan 50 mg tablet RxNorm: 474014 1/2 Tablet(s) PO daily 12/28/2015 Inactive clopidogrel 75 mg tablet RxNorm: 131608 1 Tablet(s) PO daily 05/26/2014 Inactive Mobic 15 mg tablet RxNorm: 012810 TAKE (1/2) TABLET DAILY. 09/30/2014 Inactive clopidogrel 75 mg tablet RxNorm: 122409 TAKE 1 TABLET DAILY 02/19/2015 Inactive Mobic 15 mg tablet RxNorm: 939739 1/2 Tablet(s) PO daily TAKE (1/2) TABLET DAILY. 05/27/2014 05/26/2014 Inactive prednisone 20 mg tablet RxNorm: 914972 1 Tablet(s) PO BID 05/2105/25/2014 Inactive albuterol sulfate 2.5 mg/0.5 mL solution for nebulization RxNorm: 210536 1 inhale INH Q4H as needed 05/21/2014 09/01/2015 Inactive prednisone 20 mg tablet RxNorm: 529914 1 Tablet(s) PO BID 05/2105/20/2014 Inactive cefdinir 300 mg capsule RxNorm: 926779 1 Capsule(s) PO BID 04/201505/26/2014 Inactive Zithromax Z-Dequan 250 mg tablet RxNorm: 757298 1 Tablet(s) PO UD 05/20/2014 05/24/2014 Inactive zpack lorazepam 0.5 mg tablet RxNorm: 894038 1/2 to 1 Tablet(s) PO Q8 PRN as needed 04/30/2014 06/05/2014 Inactive Namenda 10 mg tablet RxNorm: 386358 TAKE 1 TABLET BY MOUTH TWICE DAILY. 04/15/2014 01/21/2015 Inactive Namenda 10 mg tablet RxNorm: 552133 1 Tablet(s) PO BID 201304/14/2014 Inactive losartan 50 mg tablet RxNorm: 527090 1 Tablet(s) PO daily 201305/28/2014 Inactive Protonix 40 mg tablet,delayed release RxNorm: 898124 1 Tablet(s) PO QPM 03/21/2014 06/18/2014 Inactive ok to change from [address] Carlos fluticasone 50 mcg/actuation nasal spray,suspension RxNorm: 205275 1 [place] NASAL BID 03/04/2014 09/29/2014 Inactive Protonix 20 mg tablet,delayed release RxNorm: 478295 1 Tablet(s) PO QPM 02/08/2014 03/20/2014 Inactive fluticasone 50 mcg/actuation nasal spray,suspension RxNorm: 858247 1 [place] NASAL BID 01/30/2014 03/03/2014 Inactive fluticasone 50 mcg/actuation nasal spray,suspension RxNorm: 089845 1 [place] NASAL BID 12/24/2013 01/29/2014 Inactive fluticasone 50 mcg/actuation nasal spray,suspension RxNorm: 031385 1 [place] NASAL BID 11/20/2013 12/23/2013 Inactive doxycycline hyclate 100 mg capsule RxNorm: 9814109 1 Capsule(s) PO BID 10/08/2013 10/17/2013 Inactive doxycycline hyclate 100 mg capsule RxNorm: 1062262 capsule oral 10/08/2013 10/29/2013 Inactive fluticasone 50 mcg/actuation nasal spray,suspension RxNorm: 285501 spray, suspension nasl 10/08/2013 11/19/2013 Inactive fluticasone 50 mcg/actuation nasal spray,suspension RxNorm: 331078 1 [place] NASAL BID Nasal spray- use twice daily, one spray per nostril twice daily, after 30 minutes, rinse out nose with saline spray. 10/08/2013 10/29/2013 Inactive mirtazapine 7.5 mg tablet RxNorm: 578647 1/2 Tablet(s) PO daily 08/30/2013 08/27/2014 Inactive lorazepam 0.5 mg tablet RxNorm: 893019 1/2 Tablet(s) PO Q8 PRN 08/21/2013 04/29/2014 Inactive Aricept 5 mg tablet RxNorm: 323324 Tablet(s) PO TAKE 1 TABLET DAILY 08/21/2013 05/28/2014 Inactive Plavix 75 mg tablet RxNorm: 331869 Tablet(s) PO TAKE 1 TABLET DAILY 05/24/2013 12/04/2014 Inactive clopidogrel 75 mg tablet RxNorm: 497376 tablet oral 05/24/2013 05/26/2014 Inactive Plavix 75 mg tablet RxNorm: 218606 1 Tablet(s) PO daily 201305/23/2013 Inactive meloxicam 15 mg tablet RxNorm: 648167 tablet oral 04/26/2013 03/25/2014 Inactive Mobic 15 mg tablet RxNorm: 970104 Tablet(s) PO TAKE (1/2) TABLET DAILY. 04/26/2013 05/26/2014 Inactive Mobic 15 mg tablet RxNorm: 319783 1/2 Tablet(s) PO daily 04/25/2013 Inactive lisinopril 20 mg tablet RxNorm: 998242 1 Tablet(s) PO 201203/24/2014 Inactive finasteride 5 mg tablet RxNorm: 925159 tablet oral 03/22/2013 09/01/2015 Inactive lisinopril 10 mg tablet RxNorm: 909259 1 Tablet(s) PO daily 01/201304/03/2013 Inactive donepezil 5 mg tablet RxNorm: 862721 tablet oral 02/07/2013 12/24/2013 Inactive Influenza Virus Vaccine 0.5 mL RxNorm: IM 02/06/2013 02/06/2013 Inactive Aricept 5 mg tablet RxNorm: 333292 1 Tablet(s) PO daily 201208/04/2013 Inactive tamsulosin ER 0.4 mg capsule,extended release 24 hr RxNorm: 687088 capsule, extended release 24hr oral 12/21/2012 Inactive Plavix 75 mg tablet RxNorm: 928955 1 Tablet(s) PO daily 201205/03/2013 Inactive lorazepam 0.5 mg tablet RxNorm: 755486 1/2 Tablet(s) PO Q8 PRN 11/14/2012 08/20/2013 Inactive lisinopril 10 mg tablet RxNorm: 386999 1 Tablet(s) PO daily 06/201202/03/2013 Inactive Aricept 5 mg tablet RxNorm: 111286 1 Tablet(s) PO daily 201202/03/2013 Inactive Plavix 75 mg tablet RxNorm: 835403 1 Tablet(s) PO daily 201211/30/2012 Inactive Mobic 15 mg tablet RxNorm: 861815 1/2 Tablet(s) PO daily 04/201204/13/2013 Inactive Namenda 10 mg tablet RxNorm: 525264 1 Tablet(s) PO BID 201104/11/2014 Inactive lorazepam 0.5 mg tablet RxNorm: 903359 1/2 Tablet(s) PO Q8 PRN 02/02/2012 11/13/2012 Inactive lisinopril 10 mg tablet RxNorm: 796457 1 Tablet(s) PO daily 07/21/2012 Inactive lisinopril 10 mg tablet RxNorm: 955126 1/2 Tablet(s) PO daily 12/20/2011 01/23/2012 Inactive Aricept 5 mg tablet RxNorm: 919731 1 Tablet(s) PO daily 201108/06/2012 Inactive Mobic 15 mg tablet RxNorm: 311113 1 Tablet(s) PO daily 201103/19/2012 Inactive Bentyl 10 mg Cap RxNorm: 259903 1 Capsule(s) PO daily one pill daily and every 6 hours if needed for bowel spasms. 06/23/2011 03/20/2012 Inactive amlodipine 5 mg Tab RxNorm: 923359 2 Tablet(s) PO daily 201012/08/2011 Inactive ZOSTAVAX 19,400 unit Sub-Q Soln RxNorm: 6418898 SQ 02/25/2011 02/25/2011 Inactive Pneumovax 23 25 mcg/0.5 mL Injection RxNorm: 444296 Milliliter(s) Inj 02/16/2011 02/16/2011 Inactive Influenza Virus Vaccine 0.5 mL RxNorm: IM 02/09/2011 02/09/2011 Inactive Namenda 10 mg tablet RxNorm: 583469 1 Tablet(s) PO BID 201002/21/2012 Inactive dicyclomine 10 mg capsule RxNorm: 011111 capsule oral 201010/29/2013 Inactive Namenda 5 mg tablet RxNorm: 883445 tablet oral 01/20/2011 12/24/2013 Inactive dicyclomine 20 mg tablet RxNorm: 378972 tablet oral 01/15/2011 10/29/2013 Inactive Flagyl 500 mg Tab RxNorm: 245232 1 Tablet(s) PO TID 201001/06/2011 Inactive Cipro 500 mg Tab RxNorm: 894833 1 Tablet(s) PO BID 201006/23/2011 Inactive Cipro 500 mg Tab RxNorm: 924395 1 Tablet(s) PO BID 201001/06/2011 Inactive Flagyl 500 mg Tab RxNorm: 363669 1 Tablet(s) PO TID 201006/23/2011 Inactive metronidazole 500 mg tablet RxNorm: 195159 tablet oral 201012/24/2013 Inactive sulfamethoxazole 400 mg-trimethoprim 80 mg tablet RxNorm: 616997 tablet oral 12/24/2010 03/10/2015 Inactive mirtazapine 15 mg tablet RxNorm: 970937 tablet oral 11/14/2010 12/24/2013 Inactive lisinopril 10 mg tablet RxNorm: 567651 tablet oral 11/14/2010 12/24/2013 Inactive doxycycline hyclate 100 mg tablet RxNorm: 104032 tablet oral 12/24/2013 Inactive diphenoxylate-atropine 2.5 mg-0.025 mg tablet RxNorm: 5972287 tablet oral 11/03/2010 10/29/2013 Inactive ciprofloxacin 500 mg tablet RxNorm: 389426 tablet oral 201010/29/2013 Inactive aspirin 81 mg Cap, Delayed Release RxNorm: 691889 1 Capsule(s) PO daily No Start Date Active Bentyl 10 mg capsule RxNorm: 861220 1 Capsule(s) PO QID as needed per dr. wang No Start Date Active metoclopramide 5 mg tablet RxNorm: 855965 1 Tablet(s) PO AC & HS prescribed in ER No Start Date Active Vitamin D 1,000 unit Tab RxNorm: 731195 1 Tablet(s) PO daily No Start Date Active Senior Vitamin Tab RxNorm: 1 Tablet(s) PO daily No Start Date Active sulfamethoxazole 500 mg Tab RxNorm: 740085 1/2 Tablet(s) PO daily No Start Date 12/24/2013 Inactive Plavix 75 mg Tab RxNorm: 491489 1 Tablet(s) PO daily No Start Date 01/26/2011 Inactive famotidine 20 mg tablet RxNorm: 467759 1 Tablet(s) PO BID prescribed in ER No Start Date 10/13/2017 Inactive hydrocodone 5 mg-acetaminophen 325 mg tablet RxNorm: 445027 1 Tablet(s) PO Q6 as needed No Start Date 06/05/2014 Inactive Proscar 5 mg Tab RxNorm: 021390 1 Tablet(s) PO daily No Start Date 09/01/2015 Inactive Plavix 75 mg tablet RxNorm: 245769 1 Tablet(s) PO daily No Start Date 07/03/2012 Inactive albuterol sulfate 2.5 mg/0.5 mL solution for nebulization RxNorm: 009706 1 inhale INH Q4H as needed No Start Date 2014 Inactive amlodipine 5 mg Tab RxNorm: 899000 1 Tablet(s) PO daily No Start Date 03/07/2011 Inactive Namenda 5 mg Tab RxNorm: 096065 1 Tablet(s) PO daily No Start Date 06/23/2011 Inactive Allergy Relief (cetirizine) oral RxNorm: 626683 oral No Start Date 12/19/2016 Inactive fluocinonide 0.05 % Ointment RxNorm: 258764 1 TOP BID PRN No Start Date 12/24/2013 Inactive amlodipine 5 mg tablet RxNorm: 257923 1 Tablet(s) PO daily No Start Date 09/01/2014 Inactive lisinopril Oral RxNorm : Oral No Start Date 12/08/2011 Inactive simvastatin 20 mg Tab RxNorm: 543551 1 Tablet(s) PO daily No Start Date 06/06/2014 Inactive Bentyl 20 mg Tab RxNorm: 606285 1 Tablet(s) PO Q6 PRN No Start Date 06/23/[address] Quintero Bentyl 10 mg Cap RxNorm: 050075 1 Capsule(s) PO BID No Start Date 06/22/2011 Inactive Plavix 75 mg Tab RxNorm: 634413 1 Tablet(s) PO every other day No Start Date 08/24/2011 Inactive lorazepam 0.5 mg tablet RxNorm: 434948 1/2 Tablet(s) PO Q8 PRN No Start Date 02/01/2012 Inactive lisinopril 10 mg tablet RxNorm: 258065 1 Tablet(s) PO daily No Start Date 12/19/2011 Inactive Flomax 0.4 mg 24 hr Cap RxNorm: 019209 1 Capsule(s) PO daily No Start Date 05/28/2014 Inactive Aricept 5 mg Tab RxNorm: 344545 1 Tablet(s) PO daily No Start Date 07/13/2011 Inactive Levsin 0.125 mg tablet RxNorm: 0149728 1 Tablet(s) PO QID as needed FOR ABD PAIN No Start Date 11/04/2014 Inactive mirtazapine 7.5 mg tablet RxNorm: 449010 1/2 Tablet(s) PO daily No Start Date 08/29/2013 Inactive Mobic 15 mg Tab RxNorm : 452179 1 Tablet(s) PO daily No Start Date 07/13/2011 Inactive Medication Administered Medication Codes Instructions Start Date Status Kenalog 40 mg/mL suspension for injection RxNorm: 3867831 Milliliter 11/25/2016 No longer Active Influenza Virus Vaccine 0.5 mL RxNorm: 02/06/2013 No longer Active ZOSTAVAX 19,400 unit Sub-Q Soln RxNorm: 6112026 02/25/2011 No longer Active Pneumovax 23 25 mcg/0.5 mL Injection RxNorm: 354040 Milliliter 02/16/2011 No longer Active Influenza Virus [...] 02/05/2009 completed Assessments Condition Codes Effective Dates Irritable bowel syndrome with constipation ICD-10: K58.1 ICD-9: 564.1 11/14/2017 Malignant neoplasm of prostate ICD-10: C61 ICD-9: 185 11/14/2017 Slow transit constipation ICD-10: K59.01 ICD-9: 564.01 2017 Gastro-esophageal reflux disease without esophagitis ICD-10 : K21.9 ICD-9: 530.81 2017 Underweight ICD-10: R63.6 ICD-9: 783.22 10/13/2017 Essential (primary) hypertension ICD-10: I10 ICD-9: 401.1 10/13/2017 Gastroparesis ICD-10: K31.84 ICD-9: 536.3 09/26/2017 Dysuria ICD-10: R30.0 ICD-9: 788.1 09/26/2017 Other abnormal glucose ICD-10: R73.09 ICD-9: 790.29 09/12/2017 Other fatigue ICD-10: R53.83 ICD-9: 780.79 09/09/2017 Unsteadiness on feet ICD-10: R26.81 ICD-9: 781.2 06/21/2017 Gas pain ICD-10: R14.1 ICD-9: 787.3 06/21/2017 Pain in thoracic spine ICD-10: M54.6 [...] Mixed hyperlipidemia ICD-10: E78.2 ICD-9: 272.4 05/06/2015 Major depressive disorder, single episode, mild ICD-10: [...] Visit Reason For Visit Effective Dates Notes abdominal pain 11/14/2017 constipation 2017 constipation 10/13/2017 Hospital Follow Up 09/26/2017 Hospital Follow Up 09/12/2017 fatigue 09/09/2017 constipation 08/17/2017 diarrhea 07/20/2017 diarrhea 07/01/2017 hypertension 06/21/2017 hypertension 03/21/2017 earache 03/08/2017 cough [...] Observation Code Item Item Code Result Date Comp Metabolic Ejr504 NA 134 mEq/L 10/07/2017 Comp Metabolic Cvq294 K 4.5 mEq/L 10/07/2017 Comp Metabolic Mfn441 CL 99 mEq/L 10/07/2017 Comp Metabolic Bxa500 CO2 31.0 mEq/L 10/07/2017 Comp Metabolic Ule862 ANION GAP 9 10/07/2017 Comp Metabolic Yiq975 GLUCOSE 82 mg/dL 10/07/2017 Comp Metabolic Eds870 Creat 1.0 mg/dL 10/07/2017 Comp Metabolic Dod698 eGFR 77 ml/min/1.73m2 10/07/2017 Comp Metabolic Jqb609 BUN 16 mg/dL 10/07/2017 Comp Metabolic Rfp417 B/C Ratio 16.3 Ratio 10/07/2017 Comp Metabolic Crt761 CALCIUM 9.6 mg/dL 10/07/2017 Comp Metabolic Rvf224 ALK PHOS 72 U/L 10/07/2017 Comp Metabolic Nfs931 AST(SGOT) 21 U/L 10/07/2017 Comp Metabolic Fyb355 ALT(SGPT) 14 U/L 10/07/2017 Comp Metabolic Fww876 BILI T 0.4 mg/dL 10/07/2017 Comp Metabolic Fqv108 ALBUMIN 4.0 g/dL 10/07/2017 Comp Metabolic Wgx836 TPRO 5.7 g/dL 10/07/2017 Comp Metabolic Hul542 GLOB 1.7 g/dL 10/07/2017 Comp Metabolic Few970 A/G Ratio 2.4 Ratio 10/07/2017 Comp Metabolic Vac275 Osmo 269 mOsmo 10/07/2017 Lipid Ord30 CHOL 135 mg/dL 10/07/2017 Lipid Ord30 HDL 69.0 mg/dl 10/07/2017 Lipid Ord30 TRIG 52 mg/dL 10/07/2017 Lipid Ord30 LDL 56 mg/dL 10/07/2017 Lipid Ord30 C/HDL 2.0 Ratio 10/07/2017 %Hba1C Mbu431 % HbA1c 66992-8 5.5 % 09/12/2017 %Hba1C Fsk181 Gluc Ave 111 mg/dL 09/12/2017 B12 Vru005 B12 816.00 pg/ml 09/10/2017 Test(s) Not Perfromed Test(s) Not Performed Test(s) Not Performed. 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 09/09/2017 Lipid Ord30 CHOL 134 mg/dL 04/11/2017 Lipid Ord30 HDL 63.0 mg/dl 04/11/2017 Lipid Ord30 TRIG 45 mg/dL 04/11/2017 Lipid Ord30 LDL 62 mg/dL 04/11/2017 Lipid Ord30 C/HDL 2.1 Ratio 04/11/2017 Tsh Ord6 hTSH II 2.07 uIU/mL 04/11/2017 Body Fluid Crystals Source RIGHT ELBOW 02/18/2016 Body Fluid Crystals CRYSTALS, BODY FLUID 2015 Uric Acid Body Fluid 758002 URIC ACID- FLUID 4.3 mg/dL 2015 Metabolic [...] Ord15 CALCIUM 9.1 mg/dL 02/05/2016 Comp Metabolic Dqf968 NA 129 mEq/L 10/08/2015 Comp Metabolic Uuy143 K 4.7 mEq/L 10/08/2015 Comp Metabolic Tvg833 CL 98 mEq/L 10/08/2015 Comp Metabolic Ajt705 CO2 28.0 mEq/L 10/08/2015 Comp Metabolic Fnw385 ANION GAP 8 10/08/2015 Comp Metabolic Fcf992 GLUCOSE 84 mg/dL 10/08/2015 Comp Metabolic Obi909 Creat 1.3 mg/dL 10/08/2015 Comp Metabolic Kdb557 eGFR 56 ml/min/1.73m2 10/08/2015 Comp Metabolic Hjb354 BUN 23 mg/dL 10/08/2015 Comp Metabolic Tnx872 B/C Ratio 17.8 Ratio 10/08/2015 Comp Metabolic Lxy065 CALCIUM 9.3 mg/dL 10/08/2015 Comp Metabolic Jje248 ALK PHOS 68 U/L 10/08/2015 Comp Metabolic Jne828 AST(SGOT) 24 U/L 10/08/2015 Comp Metabolic Njf638 ALT(SGPT) 15 U/L 10/08/2015 Comp Metabolic Hlw299 BILI T 0.5 mg/dL 10/08/2015 Comp Metabolic Qct683 ALBUMIN 4.0 g/dL 10/08/2015 Comp Metabolic Cag096 TPRO 5.9 g/dL 10/08/2015 Comp Metabolic Dyw739 GLOB 1.9 g/dL 10/08/2015 Comp Metabolic Btu114 A/G Ratio 2.1 Ratio 10/08/2015 Comp Metabolic Jbo245 Osmo 262 mOsmo 10/08/2015 Lipid Ord30 CHOL [...] Ord30 C/HDL 2.3 Ratio 05/07/2015 Comp Metabolic Wjx835 NA 132 mEq/L 05/07/2015 Comp Metabolic Klt258 K 4.4 mEq/L 05/07/2015 Comp Metabolic Icc723 CL 97 mEq/L 05/07/2015 Comp Metabolic Znn422 CO2 30.0 mEq/L 05/07/2015 Comp Metabolic Kln772 ANION GAP 9 05/07/2015 Comp Metabolic Pof263 GLUCOSE 78 mg/dL 05/07/2015 Comp Metabolic Xnv715 Creat 1.2 mg/dL 05/07/2015 Comp Metabolic Juk218 eGFR 60 ml/min/1.73m2 05/07/2015 Comp Metabolic Qnc182 BUN 25 mg/dL 05/07/2015 Comp Metabolic Wdm366 B/C Ratio 20.3 Ratio 05/07/2015 Comp Metabolic Dhq430 CALCIUM 9.6 mg/dL 05/07/2015 Comp Metabolic Anj752 ALK PHOS 70 U/L 05/07/2015 Comp Metabolic Uhd480 AST(SGOT) 27 U/L 05/07/2015 Comp Metabolic Ray880 ALT(SGPT) 20 U/L 05/07/2015 Comp Metabolic Fdc097 BILI T 0.4 mg/dL 05/07/2015 Comp Metabolic Gxf981 ALBUMIN 4.0 g/dL 05/07/2015 Comp Metabolic Ymb809 TPRO 5.8 g/dL 05/07/2015 Comp Metabolic Uli826 GLOB 1.8 g/dL 05/07/2015 Comp Metabolic Tvq856 A/G Ratio 2.3 Ratio 05/07/2015 Comp Metabolic Edr091 Osmo 268 mOsmo 05/07/2015 Cbc With Differential [...] hTSH II 4.07 uIU/mL 05/07/2015 Comp Metabolic Vfs467 NA 134 mEq/L 12/10/2014 Comp Metabolic Pzn481 K 4.8 mEq/L 12/10/2014 Comp Metabolic Icu474 CL 101 mEq/L 12/10/2014 Comp Metabolic Fpz182 CO2 30.0 mEq/L 12/10/2014 Comp Metabolic Wsu790 ANION GAP 8 12/10/2014 Comp Metabolic Tic098 GLUCOSE 85 mg/dL 12/10/2014 Comp Metabolic Vqg178 Creat 1.2 mg/dL 12/10/2014 Comp Metabolic Qhk784 eGFR 65 ml/min/1.73m2 12/10/2014 Comp Metabolic Oak790 BUN 25 mg/dL 12/10/2014 Comp Metabolic Uht488 B/C Ratio 21.7 Ratio 12/10/2014 Comp Metabolic Uwi503 CALCIUM 9.5 mg/dL 12/10/2014 Comp Metabolic Zez995 ALK PHOS 76 U/L 12/10/2014 Comp Metabolic Wco574 AST(SGOT) 27 U/L 12/10/2014 Comp Metabolic Ubo250 ALT(SGPT) 18 U/L 12/10/2014 Comp Metabolic Gru866 BILI T 0.5 mg/dL 12/10/2014 Comp Metabolic Cud809 ALBUMIN 4.1 g/dL 12/10/2014 Comp Metabolic Bbr275 TPRO 5.7 g/dL 12/10/2014 Comp Metabolic Det210 GLOB 1.6 g/dL 12/10/2014 Comp Metabolic Uwl902 A/G Ratio 2.6 Ratio 12/10/2014 Comp Metabolic Joq419 Osmo 272 mOsmo 12/10/2014 B12 Ixc559 B12 1011.00 pg/ml 12/10/2014 Lipid Ord30 CHOL [...] Differential Ord2 RDW 14.3 % 12/10/2014 CBC [id number] WBC 4.1 10e9/L 02/19/2013 CBC [id number] RBC 4.39 10e12/L 02/19/2013 CBC [id number] HGB 14.1 g/dL 02/19/2013 CBC [id number] HCT DET 41.0 % 02/19/2013 CBC [id number] MCV 93.4 fL 02/19/2013 CBC [id number] MCH 32.1 pg 02/19/2013 CBC [id number] MCHC 34.4 g/dL 02/19/2013 CBC [id number] PLT 151 10e9/L 02/19/2013 CBC [id number] MPV 11.8 fL 02/19/2013 CBC [id number] YOVANNY % 63.2 % 02/19/2013 CBC [id number] LY % 22.9 % 02/19/2013 CBC [id number] MON % 11.5 % 02/19/2013 CBC [id number] EOS % 2.2 % 02/19/2013 CBC [id number] BASO % 0.2 % 02/19/2013 CBC [id number] RDW 13.8 % 02/19/2013 CBC [id number] ABS YOVANNY 2.59 10e9/L 02/19/2013 CBC [id number] ABS LYMPH 0.94 10e9/L 02/19/2013 CBC [id number] ABS MONO 0.47 10e9/L 02/19/2013 CBC [id number] ABS EOS 0.09 10e9/L 02/19/2013 CBC [id number] ABS BASO 0.01 10e9/L 02/19/2013 CBC [id number] RDW-SD 46.0 fL 02/19/2013 TSH [id number] TSH 2.094 uIU/ML 02/19/2013 FREE T4 [id number] FREE T4 1.18 NG/DL 02/19/2013 GFR CALC 5848268 GFR AA >60 ML/MIN 02/19/2013 GFR CALC 3140712 GFR NON-AA >60 ML/MIN 02/19/2013 CHEM 14 [id number] AST 30 U/L 02/19/2013 CHEM 14 1803224 ALT 19 IU/L 02/19/2013 CHEM 14 2817704 BUN 21 MG/DL 02/19/2013 CHEM 14 4075376 ALBUMIN 4.4 GM/DL 02/19/2013 CHEM 14 0310374 CHLORIDE 94 MMOL/L 02/19/2013 CHEM 14 8528525 BILI TOT 0.5 MG/DL 02/19/2013 CHEM 14 5327946 ALK PHOS 75 U/L 02/19/2013 CHEM 14 7220709 SODIUM 133 MMOL/L 02/19/2013 CHEM 14 2772967 CREATININE 1.07 MG/DL 02/19/2013 CHEM 14 2977092 CALCIUM 9.6 MG/DL 02/19/2013 CHEM 14 6051194 POTASSIUM 4.6 MMOL/L 02/19/2013 CHEM 14 9159424 PROT TOT 6.1 GM/DL 02/19/2013 CHEM 14 7685592 GLUCOSE 94 MG/DL 02/19/2013 CHEM 14 4180779 BICARB 31 MMOL/L 02/19/2013 CHEM 14 4475831 ANION GAP 8 MEQ/L 02/19/2013 UA 46135 Specific [place] 1.015 DateTime(Free Text in Aprima ) UA 00551 PH 6 DateTime(Free Text in Aprima) UA 41008 GLUCOSE neg DateTime(Free Text in Aprima) UA 89584 Protein neg DateTime(Free Text in Aprima) UA 33914 Blood neg DateTime(Free Text in Aprima) UA 32495 Bilirubin neg DateTime(Free Text in ) UA 93756 Ketones neg DateTime(Free Text in ) UA 64779 Urobilinogen neg DateTime(Free Text in ) UA 36331 Nitrite neg DateTime(Free Text in ) UA 08120 Leukocytes neg DateTime(Free Text in ) Review of Systems System Result Effective Dates Constitutional recent illness 11/14/2017 Constitutional No chills 11/14/2017 Constitutional No diaphoresis 11/14/2017 Constitutional No fever 11/14/2017 Eyes No blindness 11/14/2017 Ears/Nose/Throat/Neck No nasal discharge 11/14/2017 Cardiovascular No chest pain/pressure 01/2018 Cardiovascular No dyspnea 11/14/2017 Respiratory No chest congestion 2017 Respiratory No cough 11/14/2017 Gastrointestinal abdominal pain 2017 Gastrointestinal constipation 11/14/2017 Gastrointestinal diarrhea 11/14/2017 Gastrointestinal No nausea 11/14/2017 Gastrointestinal No vomiting 11/14/2017 Genitourinary/Nephrology urinary frequency 11/14/2017 Dermatologic No rash 11/14/2017 Neurologic No alteration of consciousness 11/14/2017 Neurologic No mental status change 2017 Psychiatric anxiety 11/14/2017 Psychiatric disturbances of memory 2017 Constitutional recent illness 2017 Constitutional No chills 2017 Constitutional No diaphoresis 2017 Constitutional No fever 2017 Eyes No eye erythema 2017 Ears/Nose/Throat/Neck No nasal discharge 2017 Cardiovascular No chest pain/pressure Cardiovascular No dyspnea 2017 Respiratory No chest congestion 2017 Respiratory No cough 2017 Gastrointestinal abdominal pain 2017 Gastrointestinal constipation 2017 Gastrointestinal diarrhea 2017 Gastrointestinal No nausea 2017 Gastrointestinal No vomiting 2017 Genitourinary/Nephrology urinary frequency 2017 Dermatologic No rash 2017 Neurologic No alteration of consciousness 2017 Neurologic No mental status change 2017 Psychiatric anxiety 2017 Psychiatric disturbances of memory 2017 Constitutional recent illness 10/13/2017 Constitutional No chills 10/13/2017 Constitutional No diaphoresis 10/13/2017 Constitutional No fever 10/13/2017 Eyes No blindness 10/13/2017 Ears/Nose/Throat/Neck No nasal discharge 10/13/2017 Cardiovascular No chest pain/pressure 11/2017 Cardiovascular No dyspnea 10/13/2017 Respiratory No chest congestion 2017 Respiratory No cough 10/13/2017 Gastrointestinal abdominal pain 2017 Gastrointestinal constipation 10/13/2017 Gastrointestinal diarrhea 10/13/2017 Gastrointestinal No nausea 10/13/2017 Gastrointestinal No vomiting 10/13/2017 Genitourinary/Nephrology urinary frequency 10/13/2017 Dermatologic No rash 10/13/2017 Neurologic No alteration of consciousness 10/13/2017 Neurologic No mental status change 2017 Psychiatric anxiety 10/13/2017 Psychiatric disturbances of memory 2017 Constitutional recent illness 09/26/2017 Constitutional No chills 09/26/2017 Constitutional No diaphoresis 09/26/2017 Constitutional No fever 09/26/2017 Eyes No blindness 09/26/2017 Ears/Nose/Throat/Neck No nasal discharge 09/26/2017 Cardiovascular No chest pain/pressure Cardiovascular No dyspnea 09/26/2017 Respiratory No chest congestion 2017 Respiratory No cough 09/26/2017 Gastrointestinal abdominal pain 2017 Gastrointestinal constipation 09/26/2017 Gastrointestinal diarrhea 09/26/2017 Gastrointestinal No nausea 09/26/2017 Gastrointestinal No vomiting 09/26/2017 Dermatologic No rash 09/26/2017 Neurologic No alteration of consciousness 09/26/2017 Neurologic No mental status change 2017 Genitourinary/Nephrology urinary frequency 09/26/2017 Psychiatric anxiety 09/26/2017 Psychiatric disturbances of memory 2017 Constitutional recent illness 09/12/2017 Constitutional No chills 09/12/2017 Constitutional No diaphoresis 09/12/2017 Constitutional No fever 09/12/2017 Eyes No blindness 09/12/2017 Ears/Nose/Throat/Neck No nasal discharge 09/12/2017 Cardiovascular No chest pain/pressure 11/2017 Cardiovascular No dyspnea 09/12/2017 Respiratory No chest congestion 2017 Respiratory No cough 09/12/2017 Gastrointestinal abdominal pain 2017 Gastrointestinal constipation 09/12/2017 Gastrointestinal diarrhea 09/12/2017 Gastrointestinal No nausea 09/12/2017 Gastrointestinal No vomiting 09/12/2017 Dermatologic No rash 09/12/2017 Neurologic No alteration of consciousness 09/12/2017 Neurologic No mental status change 2017 Constitutional recent illness 09/09/2017 Constitutional No chills 09/09/2017 Constitutional No diaphoresis 09/09/2017 Constitutional No fever 09/09/2017 Eyes No eye erythema 09/09/2017 Ears/Nose/Throat/Neck No nasal discharge 09/09/2017 Cardiovascular No chest pain/pressure 08/2017 Cardiovascular No dyspnea 09/09/2017 Respiratory No chest congestion 2017 Respiratory No cough 09/09/2017 Gastrointestinal abdominal pain 2017 Gastrointestinal constipation 09/09/2017 Gastrointestinal diarrhea 09/09/2017 Gastrointestinal No nausea 09/09/2017 Gastrointestinal No vomiting 09/09/2017 Dermatologic No rash 09/09/2017 Neurologic No alteration of consciousness 09/09/2017 Neurologic No mental status change 2017 Constitutional recent illness 08/17/2017 Constitutional No chills 08/17/2017 Constitutional No diaphoresis 08/17/2017 Constitutional No fever 08/17/2017 Eyes No blindness 08/17/2017 Ears/Nose/Throat/Neck No nasal discharge 08/17/2017 Cardiovascular No chest pain/pressure 03/2018 Cardiovascular No dyspnea 08/17/2017 Respiratory No chest congestion 2017 Respiratory No cough 08/17/2017 Gastrointestinal abdominal pain 2017 Gastrointestinal constipation 08/17/2017 Gastrointestinal diarrhea 08/17/2017 Gastrointestinal No nausea 08/17/2017 Gastrointestinal No vomiting 08/17/2017 Dermatologic No rash 08/17/2017 Neurologic No alteration of consciousness 08/17/2017 Neurologic No mental status change 2017 Constitutional recent illness 07/20/2017 Constitutional No chills 07/20/2017 Constitutional No diaphoresis 07/20/2017 Constitutional No fever 07/20/2017 Eyes No blindness 07/20/2017 Ears/Nose/Throat/Neck No nasal discharge 07/20/2017 Cardiovascular No chest pain/pressure Cardiovascular No dyspnea 07/20/2017 Respiratory No chest congestion 2017 Respiratory No cough 07/20/2017 Gastrointestinal abdominal pain 2017 Gastrointestinal constipation 07/20/2017 Gastrointestinal diarrhea 07/20/2017 Gastrointestinal No nausea 07/20/2017 Gastrointestinal No vomiting 07/20/2017 Dermatologic No rash 07/20/2017 Neurologic No alteration of consciousness 07/20/2017 Neurologic No mental status change 2017 Constitutional recent illness 07/01/2017 Constitutional No chills 07/01/2017 Constitutional No diaphoresis 07/01/2017 Constitutional No fever 07/01/2017 Eyes No eye erythema 07/01/2017 Ears/Nose/Throat/Neck No nasal discharge 07/01/2017 Cardiovascular No chest pain/pressure Cardiovascular No dyspnea 07/01/2017 Respiratory No cough 07/01/2017 Respiratory No chest congestion 2017 Gastrointestinal abdominal pain 2017 Gastrointestinal constipation 07/01/2017 Gastrointestinal diarrhea 07/01/2017 Gastrointestinal No vomiting 07/01/2017 Gastrointestinal No nausea 07/01/2017 Dermatologic No rash 07/01/2017 Neurologic No alteration of consciousness 07/01/2017 Neurologic No mental status change 2017 Constitutional No recent illness 2017 Constitutional No [...] 1994 Constitutional general appearance Overall: well developed 11/14/2017 None Full Exam - General 1994 Constitutional general appearance Overall: in no acute distress 11/14/2017 None Full Exam - General 1994 Constitutional general appearance Overall: well nourished 11/14/2017 None Full Exam - General 1994 Eyes conjunctiva /eyelids Overall: conjunctiva clear 11/14/2017 None Full Exam - General 1994 Eyes conjunctiva /eyelids Overall: cornea clear 11/14/2017 None Full Exam - General 1995 Eyes conjunctiva /eyelids Overall: eyelids normal 11/14/2017 None Full Exam - General 1995 Ears/Nose/Throat lips/teeth/gingiva Overall: benign lips 11/14/2017 None Full Exam - General 1995 Ears/Nose/Throat oral cavity/pharynx/larynx Overall: oral mucosa clear 11/14/2017 None Full Exam - General 1995 Ears/Nose/Throat oral cavity/pharynx/larynx Overall: oropharyngeal mucosa clear 11/14/2017 None Full Exam - General 1994 Respiratory auscultation Overall: breath sounds clear bilaterally 11/14/2017 None Full Exam - General 1994 Respiratory respiratory effort/rhythm Overall: no retractions 11/14/2017 None Full Exam - General 1994 Respiratory respiratory effort/rhythm Overall: normal rate 11/14/2017 None Full Exam - General 1994 Cardiovascular auscultation of heart Overall: regular rate 11/14/2017 None Full Exam - General 1994 Cardiovascular auscultation of heart Overall: normal heart sounds 11/14/2017 None Full Exam - General 1994 Abdomen abdominal exam Overall: no tenderness 11/14/2017 None Full Exam - General 1994 Abdomen abdominal exam Overall: normal bowel sounds 11/14/2017 None Full Exam - General 1994 Musculoskeletal spine, ribs and pelvis Overall: good posture 11/14/2017 None Full Exam - General 1994 Musculoskeletal head and neck Overall: head atraumatic 11/14/2017 None Full Exam - General 1994 Neurologic gait Overall: no ataxia, no unsteadiness 11/14/2017 None Full Exam - General 1994 Psychiatric orientation/consciousness Overall: oriented to person, place and time 11/14/2017 None Full Exam - General 1994 Psychiatric mood and affect Overall: normal mood and affect 11/14/2017 None Full Exam - General 1994 Constitutional general appearance Overall: well developed 2017 None Full Exam - General 1994 Constitutional general appearance Overall: in no acute distress 2017 None Full Exam - General 1994 Constitutional general appearance Overall: well nourished 2017 None Full Exam - General 1994 Eyes conjunctiva /eyelids Overall: conjunctiva clear 2017 None Full Exam - General 1994 Eyes conjunctiva /eyelids Overall: cornea clear 2017 None Full Exam - General 1994 Eyes conjunctiva /eyelids Overall: eyelids normal 2017 None Full Exam - General 1994 Ears/Nose/Throat lips/teeth/gingiva Overall: benign lips 2017 None Full Exam - General 1994 Ears/Nose/Throat oral cavity/pharynx/larynx Overall: oral mucosa clear 2017 None Full Exam - General 1994 Ears/Nose/Throat oral cavity/pharynx/larynx Overall: oropharyngeal mucosa clear 2017 None Full Exam - General 1994 Respiratory auscultation Overall: breath sounds clear bilaterally 2017 None Full Exam - General 1994 Respiratory respiratory effort/rhythm Overall: no retractions 2017 None Full Exam - General 1994 Respiratory respiratory effort/rhythm Overall: normal rate 2017 None Full Exam - General 1994 Cardiovascular auscultation of heart Overall: regular rate 2017 None Full Exam - General 1994 Cardiovascular auscultation of heart Overall: normal heart sounds 2017 None Full Exam - General 1994 Abdomen abdominal exam Overall: no tenderness 2017 None Full Exam - General 1994 Abdomen abdominal exam Overall: normal bowel sounds 2017 None Full Exam - General 1994 Musculoskeletal spine, ribs and pelvis Overall: good posture 2017 None Full Exam - General 1994 Musculoskeletal head and neck Overall: head atraumatic 2017 None Full Exam - General 1994 Neurologic gait Overall: no ataxia, no unsteadiness 2017 None Full Exam - General 1994 Psychiatric orientation/consciousness Overall: oriented to person, place and time 2017 None Full Exam - General 1994 Psychiatric mood and affect Overall: normal mood and affect 2017 None Full Exam - General 1994 Constitutional general appearance Overall: well developed 10/13/2017 None Full Exam - General 1994 Constitutional general appearance Overall: in no acute distress 10/13/2017 None Full Exam - General 1994 Constitutional general appearance Overall: well nourished 10/13/2017 None Full Exam - General 1994 Eyes conjunctiva /eyelids Overall: conjunctiva clear 10/13/2017 None Full Exam - General 1994 Eyes conjunctiva /eyelids Overall: cornea clear 10/13/2017 None Full Exam - General 1994 Eyes conjunctiva /eyelids Overall: eyelids normal 10/13/2017 None Full Exam - General 1994 Ears/Nose/Throat lips/teeth/gingiva Overall: benign lips 10/13/2017 None Full Exam - General 1994 Ears/Nose/Throat oral cavity/pharynx/larynx Overall: oral mucosa clear 10/13/2017 None Full Exam - General 1994 Ears/Nose/Throat oral cavity/pharynx/larynx Overall: oropharyngeal mucosa clear 10/13/2017 None Full Exam - General 1994 Respiratory auscultation Overall: breath sounds clear bilaterally 10/13/2017 None Full Exam - General 1994 Respiratory respiratory effort/rhythm Overall: no retractions 10/13/2017 None Full Exam - General 1994 Respiratory respiratory effort/rhythm Overall: normal rate 10/13/2017 None Full Exam - General 1994 Cardiovascular auscultation of heart Overall: regular rate 10/13/2017 None Full Exam - General 1994 Cardiovascular auscultation of heart Overall: normal heart sounds 10/13/2017 None Full Exam - General 1994 Abdomen abdominal exam Overall: no tenderness 10/13/2017 None Full Exam - General 1994 Abdomen abdominal exam Overall: normal bowel sounds 10/13/2017 None Full Exam - General 1994 Musculoskeletal spine, ribs and pelvis Overall: good posture 10/13/2017 None Full Exam - General 1994 Musculoskeletal head and neck Overall: head atraumatic 10/13/2017 None Full Exam - General 1994 Neurologic gait Overall: no ataxia, no unsteadiness 10/13/2017 None Full Exam - General 1994 Psychiatric orientation/consciousness Overall: oriented to person, place and time 10/13/2017 None Full Exam - General 1994 Psychiatric mood and affect Overall: normal mood and affect 10/13/2017 None Full Exam - General 1994 Constitutional general appearance Overall: well developed 09/26/2017 None Full Exam - General 1994 Constitutional general appearance Overall: in no acute distress 09/26/2017 None Full Exam - General 1994 Constitutional general appearance Overall: well nourished 09/26/2017 None Full Exam - General 1994 Eyes conjunctiva /eyelids Overall: conjunctiva clear 09/26/2017 None Full Exam - General 1994 Eyes conjunctiva /eyelids Overall: cornea clear 09/26/2017 None Full Exam - General 1994 Eyes conjunctiva /eyelids Overall: eyelids normal 09/26/2017 None Full Exam - General 1994 Ears/Nose/Throat lips/teeth/gingiva Overall: benign lips 09/26/2017 None Full Exam - General 1994 Ears/Nose/Throat oral cavity/pharynx/larynx Overall: oral mucosa clear 09/26/2017 None Full Exam - General 1994 Ears/Nose/Throat oral cavity/pharynx/larynx Overall: oropharyngeal mucosa clear 09/26/2017 None Full Exam - General 1994 Respiratory auscultation Overall: breath sounds clear bilaterally 09/26/2017 None Full Exam - General 1994 Respiratory respiratory effort/rhythm Overall: no retractions 09/26/2017 None Full Exam - General 1994 Respiratory respiratory effort/rhythm Overall: normal rate 09/26/2017 None Full Exam - General 1994 Cardiovascular auscultation of heart Overall: regular rate 09/26/2017 None Full Exam - General 1994 Cardiovascular auscultation of heart Overall: normal heart sounds 09/26/2017 None Full Exam - General 1994 Abdomen abdominal exam Overall: no tenderness 09/26/2017 None Full Exam - General 1994 Abdomen abdominal exam Overall: normal bowel sounds 09/26/2017 None Full Exam - General 1994 Musculoskeletal spine, ribs and pelvis Overall: good posture 09/26/2017 None Full Exam - General 1994 Musculoskeletal head and neck Overall: head atraumatic 09/26/2017 None Full Exam - General 1994 Neurologic gait Overall: no ataxia, no unsteadiness 09/26/2017 None Full Exam - General 1994 Psychiatric orientation/consciousness Overall: oriented to person, place and time 09/26/2017 None Full Exam - General 1994 Psychiatric mood and affect Overall: normal mood and affect 09/26/2017 None Full Exam - General 1994 Constitutional general appearance Overall: well developed 09/12/2017 None Full Exam - General 1994 Constitutional general appearance Overall: in no acute distress 09/12/2017 None Full Exam - General 1994 Constitutional general appearance Overall: well nourished 09/12/2017 None Full Exam - General 1994 Eyes conjunctiva /eyelids Overall: conjunctiva clear 09/12/2017 None Full Exam - General 1994 Eyes conjunctiva /eyelids Overall: cornea clear 09/12/2017 None Full Exam - General 1994 Eyes conjunctiva /eyelids Overall: eyelids normal 09/12/2017 None Full Exam - General 1994 Ears/Nose/Throat lips/teeth/gingiva Overall: benign lips 09/12/2017 None Full Exam - General 1994 Ears/Nose/Throat oral cavity/pharynx/larynx Overall: oral mucosa clear 09/12/2017 None Full Exam - General 1994 Ears/Nose/Throat oral cavity/pharynx/larynx Overall: oropharyngeal mucosa clear 09/12/2017 None Full Exam - General 1994 Respiratory auscultation Overall: breath sounds clear bilaterally 09/12/2017 None Full Exam - General 1994 Respiratory respiratory effort/rhythm Overall: no retractions 09/12/2017 None Full Exam - General 1994 Respiratory respiratory effort/rhythm Overall: normal rate 09/12/2017 None Full Exam - General 1994 Cardiovascular auscultation of heart Overall: regular rate 09/12/2017 None Full Exam - General 1994 Cardiovascular auscultation of heart Overall: normal heart sounds 09/12/2017 None Full Exam - General 1994 Abdomen abdominal exam Overall: no tenderness 09/12/2017 None Full Exam - General 1994 Abdomen abdominal exam Overall: normal bowel sounds 09/12/2017 None Full Exam - General 1994 Musculoskeletal spine, ribs and pelvis Overall: good posture 09/12/2017 None Full Exam - General 1994 Musculoskeletal head and neck Overall: head atraumatic 09/12/2017 None Full Exam - General 1994 Neurologic gait Overall: no ataxia, no unsteadiness 09/12/2017 None Full Exam - General 1994 Psychiatric orientation/consciousness Overall: oriented to person, place and time 09/12/2017 None Full Exam - General 1994 Psychiatric mood and affect Overall: normal mood and affect 09/12/2017 None Full Exam - General 1994 Constitutional general appearance Overall: well developed 09/09/2017 None Full Exam - General 1994 Constitutional general appearance Overall: in no acute distress 09/09/2017 None Full Exam - General 1994 Constitutional general appearance Overall: well nourished 09/09/2017 None Full Exam - General 1994 Eyes conjunctiva /eyelids Overall: conjunctiva clear 09/09/2017 None Full Exam - General 1994 Eyes conjunctiva /eyelids Overall: cornea clear 09/09/2017 None Full Exam - General 1994 Eyes conjunctiva /eyelids Overall: eyelids normal 09/09/2017 None Full Exam - General 1994 Ears/Nose/Throat lips/teeth/gingiva Overall: benign lips 09/09/2017 None Full Exam - General 1994 Ears/Nose/Throat oral cavity/pharynx/larynx Overall: oral mucosa clear 09/09/2017 None Full Exam - General 1994 Ears/Nose/Throat oral cavity/pharynx/larynx Overall: oropharyngeal mucosa clear 09/09/2017 None Full Exam - General 1994 Respiratory auscultation Overall: breath sounds clear bilaterally 09/09/2017 None Full Exam - General 1994 Respiratory respiratory effort/rhythm Overall: no retractions 09/09/2017 None Full Exam - General 1994 Respiratory respiratory effort/rhythm Overall: normal rate 09/09/2017 None Full Exam - General 1994 Cardiovascular auscultation of heart Overall: regular rate 09/09/2017 None Full Exam - General 1994 Cardiovascular auscultation of heart Overall: normal heart sounds 09/09/2017 None Full Exam - General 1994 Abdomen abdominal exam Overall: no tenderness 09/09/2017 None Full Exam - General 1994 Abdomen abdominal exam Overall: normal bowel sounds 09/09/2017 None Full Exam - General 1994 Musculoskeletal spine, ribs and pelvis Overall: good posture 09/09/2017 None Full Exam - General 1994 Musculoskeletal head and neck Overall: head atraumatic 09/09/2017 None Full Exam - General 1994 Neurologic gait Overall: no ataxia, no unsteadiness 09/09/2017 None Full Exam - General 1994 Psychiatric orientation/consciousness Overall: oriented to person, place and time 09/09/2017 None Full Exam - General 1994 Psychiatric mood and affect Overall: normal mood and affect 09/09/2017 None Full Exam - General 1994 Constitutional general appearance Overall: well developed 08/17/2017 None Full Exam - General 1994 Constitutional general appearance Overall: in no acute distress 08/17/2017 None Full Exam - General 1994 Constitutional general appearance Overall: well nourished 08/17/2017 None Full Exam - General 1994 Eyes conjunctiva /eyelids Overall: conjunctiva clear 08/17/2017 None Full Exam - General 1994 Eyes conjunctiva /eyelids Overall: cornea clear 08/17/2017 None Full Exam - General 1994 Eyes conjunctiva /eyelids Overall: eyelids normal 08/17/2017 None Full Exam - General 1994 Ears/Nose/Throat lips/teeth/gingiva Overall: benign lips 08/17/2017 None Full Exam - General 1994 Ears/Nose/Throat oral cavity/pharynx/larynx Overall: oral mucosa clear 08/17/2017 None Full Exam - General 1994 Ears/Nose/Throat oral cavity/pharynx/larynx Overall: oropharyngeal mucosa clear 08/17/2017 None Full Exam - General 1994 Respiratory auscultation Overall: breath sounds clear bilaterally 08/17/2017 None Full Exam - General 1994 Respiratory respiratory effort/rhythm Overall: no retractions 08/17/2017 None Full Exam - General 1994 Respiratory respiratory effort/rhythm Overall: normal rate 08/17/2017 None Full Exam - General 1994 Cardiovascular auscultation of heart Overall: regular rate 08/17/2017 None Full Exam - General 1994 Cardiovascular auscultation of heart Overall: normal heart sounds 08/17/2017 None Full Exam - General 1994 Abdomen abdominal exam Overall: no tenderness 08/17/2017 None Full Exam - General 1994 Abdomen abdominal exam Overall: normal bowel sounds 08/17/2017 None Full Exam - General 1994 Musculoskeletal spine, ribs and pelvis Overall: good posture 08/17/2017 None Full Exam - General 1994 Musculoskeletal head and neck Overall: head atraumatic 08/17/2017 None Full Exam - General 1994 Neurologic gait Overall: no ataxia, no unsteadiness 08/17/2017 None Full Exam - General 1994 Psychiatric orientation/consciousness Overall: oriented to person, place and time 08/17/2017 None Full Exam - General 1994 Psychiatric mood and affect Overall: normal mood and affect 08/17/2017 None Full Exam - General 1994 Constitutional general appearance Overall: well developed 07/20/2017 None Full Exam - General 1994 Constitutional general appearance Overall: in no acute distress 07/20/2017 None Full Exam - General 1994 Constitutional general appearance Overall: well nourished 07/20/2017 None Full Exam - General 1994 Eyes conjunctiva /eyelids Overall: conjunctiva clear 07/20/2017 None Full Exam - General 1994 Eyes conjunctiva /eyelids Overall: cornea clear 07/20/2017 None Full Exam - General 1994 Eyes conjunctiva /eyelids Overall: eyelids normal 07/20/2017 None Full Exam - General 1994 Ears/Nose/Throat lips/teeth/gingiva Overall: benign lips 07/20/2017 None Full Exam - General 1994 Ears/Nose/Throat oral cavity/pharynx/larynx Overall: oral mucosa clear 07/20/2017 None Full Exam - General 1994 Ears/Nose/Throat oral cavity/pharynx/larynx Overall: oropharyngeal mucosa clear 07/20/2017 None Full Exam - General 1994 Respiratory auscultation Overall: breath sounds clear bilaterally 07/20/2017 None Full Exam - General 1994 Respiratory respiratory effort/rhythm Overall: no retractions 07/20/2017 None Full Exam - General 1994 Respiratory respiratory effort/rhythm Overall: normal rate 07/20/2017 None Full Exam - General 1994 Cardiovascular auscultation of heart Overall: regular rate 07/20/2017 None Full Exam - General 1994 Cardiovascular auscultation of heart Overall: normal heart sounds 07/20/2017 None Full Exam - General 1994 Abdomen abdominal exam Overall: no tenderness 07/20/2017 None Full Exam - General 1994 Abdomen abdominal exam Overall: normal bowel sounds 07/20/2017 None Full Exam - General 1994 Musculoskeletal spine, ribs and pelvis Overall: good posture 07/20/2017 None Full Exam - General 1994 Musculoskeletal head and neck Overall: head atraumatic 07/20/2017 None Full Exam - General 1994 Neurologic gait Overall: no ataxia, no unsteadiness 07/20/2017 None Full Exam - General 1994 Psychiatric orientation/consciousness Overall: oriented to person, place and time 07/20/2017 None Full Exam - General 1994 Psychiatric mood and affect Overall: normal mood and affect 07/20/2017 None Full Exam - General 1994 Constitutional general appearance Overall: well developed 07/01/2017 None Full Exam - General 1994 Constitutional general appearance Overall: in no acute distress 07/01/2017 None Full Exam - General 1994 Constitutional general appearance Overall: well nourished 07/01/2017 None Full Exam - General 1994 Ears/Nose/Throat oral cavity/pharynx/larynx Overall: oral mucosa clear 07/01/2017 None Full Exam - General 1994 Ears/Nose/Throat oral cavity/pharynx/larynx Overall: oropharyngeal mucosa clear 07/01/2017 None Full Exam - General 1994 Respiratory auscultation Overall: breath sounds clear bilaterally 07/01/2017 None Full Exam - General 1994 Respiratory respiratory effort/rhythm Overall: no retractions 07/01/2017 None Full Exam - General 1994 Respiratory respiratory effort/rhythm Overall: normal rate 07/01/2017 None Full Exam - General 1994 Cardiovascular auscultation of heart Overall: regular rate 07/01/2017 None Full Exam - General 1994 Cardiovascular auscultation of heart Overall: normal heart sounds 07/01/2017 None Full Exam - General 1994 Abdomen abdominal exam Overall: normal bowel sounds 07/01/2017 None Full Exam - General 1994 Musculoskeletal spine, ribs and pelvis Overall: good posture 07/01/2017 None Full Exam - General 1994 Musculoskeletal head and neck Overall: head atraumatic 07/01/2017 None Full Exam - General 1994 Neurologic gait Overall: no ataxia, no unsteadiness 07/01/2017 None Full Exam - General 1994 Psychiatric orientation/consciousness Overall: oriented to person, place and time 07/01/2017 None Full Exam - General 1994 Psychiatric mood and affect Overall: normal mood and affect 07/01/2017 None Full Exam - General 1994 Eyes conjunctiva /eyelids Overall: conjunctiva clear 07/01/2017 None Full Exam - General 1994 Eyes conjunctiva /eyelids Overall: cornea clear 07/01/2017 None Full Exam - General 1994 Eyes conjunctiva /eyelids Overall: eyelids normal 07/01/2017 None Full Exam - General 1994 Ears/Nose/Throat lips/teeth/gingiva Overall: benign lips 07/01/2017 None Full Exam - General 1994 Abdomen abdominal exam Overall: no tenderness 07/01/2017 None Full Exam - General 1994 Constitutional [...] tenderness 04/04/2013 None Full Exam - General 1995 Abdomen abdominal exam Overall: normal bowel sounds 04/04/2013 None Full Exam - General 1995 Musculoskeletal [...] affect 02/19/2013 None Full Exam - General 1995 Constitutional general appearance Overall: well developed 10/16/2012 None Full Exam - General 1994 Constitutional general appearance Overall: in no acute distress 10/16/2012 None Full Exam - General 1994 Constitutional general appearance Overall: well nourished 10/16/2012 None Full Exam - General 1994 Eyes pupils and irises Overall: pupils equal, round, reactive to light and accomodation 10/16/2012 None Full Exam - General 1995 [...] atraumatic 01/15/2011 None Full Exam - General 1995 Musculoskeletal head and neck Overall: cervical spine benign 01/15/2011 None Full Exam - General 1995 Musculoskeletal spine, ribs and pelvis Overall: good posture 01/15/2011 None Full Exam - General 1995 Musculoskeletal gait and station Overall: normal gait 01/15/2011 None Full Exam - General 1994 Musculoskeletal gait and station Overall: normal station 01/15/2011 None Full Exam - General 1995 Neurologic cranial nerves Overall: cranial nerves 1- [...] affect 01/06/2011 None Procedures Procedure Codes Date URINALYSIS NONAUTO W/O SCOPE CPT-4: 45348 09/26/2017 ADMIN INFLUENZA VIRUS VAC CPT-4: G0008 01/25/2017 FLU VACC PRSV FREE INC ANTIG CPT-4: 01980 01/25/2017 THER/PROPH/DIAG INJ SC/IM CPT-4: 64471 11/25/2016 TRIAMCINOLONE ACET INJ NOS CPT-4: J3301 11/25/2016 DRAIN/INJECT JOINT/BURSA CPT-4: 37636 02/17/2016 IMMUNIZATION ADMIN CPT -4: 27958 05/06/2015 PNEUMOCOCCAL VACC 13 TIFFANIE IM Formatting Model/CDA Sections, Assigned to/Celia Minaya SNOMED CT: 66470060 CPT-4: 64184Zcseyvx 05/06/2015 ADMIN INFLUENZA VIRUS VAC CPT-4: G0008 02/19/2015 FLU VACC 4 TIFFANIE 3 YRS PLUS IM Formatting Model/CDA Sections, Assigned to SNOMED CT: 33538877 CPT-4: 06885Nysytph 02/19/2015 URINALYSIS NONAUTO W/O SCOPE CPT-4: 28770 05/23/2014 ADMIN INFLUENZA VIRUS VAC CPT-4: G0008 03/26/2014 FLU VAC NO PRSV 4 TIFFANIE 3 YRS+ Assigned to/Celia Minaya CPT-4: 34791Moaxvrx 03/26/2014 PRESCRIP TRANSMIT VIA ERX SY CPT-4: G8553 04/04/2013 ROUTINE VENIPUNCTURE CPT-4: 14740 02/19/2013 ADMIN INFLUENZA VIRUS VAC CPT-4: G0008 02/06/2013 FLULAVAL VACC, 3 YRS & >, IM CPT-4: Q2036 02/06/2013 78067 EST. PATIENT, LEVEL IV CPT-4: 88694 06/19/2012 PRESCRIP TRANSMIT VIA ERX SY CPT-4: G8553 06/19/2012 PRESCRIP TRANSMIT VIA ERX SY CPT-4: G8553 03/20/2012 PRESCRIP TRANSMIT VIA ERX SY CPT-4: G8553 06/23/2011 IMMUNIZATION ADMIN CPT -4: 17611 02/25/2011 ZOSTER VACC SC (No charge, patient supplied vaccine) CPT-4: 15864OY 02/25/2011 ADMIN PNEUMOCOCCAL VACCINE SNOMED CT: 86025672 CPT-4: G0009 02/16/2011 Pneumococcal Polysaccharide Vaccine, 23-Valent, Ad CPT-4: 56916 02/16/2011 ADMIN INFLUENZA VIRUS VAC CPT-4: G0008 02/09/2011 FLULAVAL VACC, 3 YRS & >, IM CPT-4: Q2036 02/09/2011 PRESCRIP TRANSMIT VIA ERX SY CPT-4: G8553 02/01/2011 URINALYSIS NONAUTO W/O SCOPE CPT-4: 58553 01/27/2011 Vital Signs Date Vital 11/14/2017 Blood Pressure 1: 130/70 Code : 8480-6 BMI: 19.5 Code : 12501-7 Heart Rate 1 : 75 bpm Height: 5'9" SpO2: 98% Weight: 132 lbs 2017 Blood Pressure 1: 116/70 Code : 8480-6 BMI: 19.5 Code : 35312-9 Heart Rate 1 : 55 bpm Height: 5'9" SpO2: 95% Weight: 132 lbs 10/13/2017 Blood Pressure 1: 130/70 Code : 8480-6 BMI: 19.3 Code : 22111-8 Heart Rate 1 : 67 bpm Height: 5'9" SpO2: 98% Weight: 131 lbs 09/26/2017 Blood Pressure 1: 126/70 Code : 8480-6 BMI: 19.1 Code : 70692-0 Heart Rate 1 : 66 bpm Height: 5'9" SpO2: 100% Weight: 129 lbs 8 oz 09/12/2017 Blood Pressure 1: 120/70 Code : 8480-6 BMI: 19.5 Code : 52084-5 Heart Rate 1 : 83 bpm Height: 5'9" SpO2: 99% Weight: 132 lbs 09/09/2017 Blood Pressure 1: 126/70 Code : 8480-6 BMI: 19.3 Code : 62572-7 Heart Rate 1 : 80 bpm Height: 5'9" SpO2: 98% Weight: 131 lbs 08/17/2017 Blood Pressure 1: 130/74 Code : 8480-6 BMI: 19.6 Code : 86158-3 Heart Rate 1 : 72 bpm Height: 5'9" SpO2: 98% Weight: 133 lbs 07/20/2017 Blood Pressure 1: 124/62 Code : 8480-6 BMI: 19.8 Code : 98690-8 Heart Rate 1 : 65 bpm Height: 5'9" SpO2: 96% Weight: 134 lbs 07/01/2017 Blood Pressure 1: 134/64 Code : 8480-6 BMI: 21.0 Code : 50913-2 Height: 5'9" Weight: 142 lbs 06/21/2017 Blood Pressure 1: 142/80 Code : 8480-6 BMI: 21.0 Code : 42442-7 Heart Rate 1 : 63 bpm Height: 5'9" SpO2: 98% Weight: 142 lbs 03/21/2017 Blood Pressure 1: 128/66 Code : 8480-6 BMI: 20.8 Code : 09471-6 Heart Rate 1 : 61 bpm Height: 5'9" SpO2: 98% Weight: 141 lbs 03/08/2017 Blood Pressure 1: 134/68 Code : 8480-6 BMI: 20.4 Code : 81596-6 Heart Rate 1 : 56 bpm Height: 5'9" SpO2: 99% Weight: 138 lbs 01/25/2017 Blood Pressure 1: 98/62 Code : 8480-6 BMI: 20.6 Code : 53154-3 Heart Rate 1 : 71 bpm Height: 5'9" SpO2: 97% Weight: 139 lbs 8 oz 12/20/2016 Blood Pressure 1: 120/68 Code : 8480-6 BMI: 20.4 Code : 35910-8 Heart Rate 1 : 70 bpm Height: [...] Code : 8480-6 BMI: 20.7 Code : 42969-6 Heart Rate 1 : 74 bpm Height: 5'9" SpO2: 95% Weight: 140 lbs 08/23/2016 Blood Pressure 1: 118/68 Code : 8480-6 BMI: 20.8 Code : 90445-8 Heart Rate 1 : 54 bpm Height: 5'9" SpO2: 97% Weight: 141 lbs 04/26/2016 Blood Pressure 1: 108/64 Code : 8480-6 BMI: 21.0 Code : 75659-8 Heart Rate 1 : 62 bpm Height: 5'9" SpO2: 95% Weight: 142 lbs 02/17/2016 Blood Pressure 1: 138/80 Code : 8480-6 BMI: 20.2 Code : 66043-3 Heart Rate 1 : 76 bpm Height: 5'9" SpO2: 97% Weight: 137 lbs 02/09/2016 Blood Pressure 1: 140/76 Code : 8480-6 BMI: 20.2 Code : 87507-3 Heart Rate 1 : 72 bpm Height: 5'9" SpO2: 96% Weight: 137 lbs 02/03/2016 Blood Pressure 1: 136/80 Code : 8480-6 BMI: 20.7 Code : 30656-5 Heart Rate 1 : 86 bpm Height: 5'9" SpO2: 96% Weight: 140 lbs 01/26/2016 Blood Pressure 1: 144/78 Code : 8480-6 BMI: 20.7 Code : 37025-9 Heart Rate 1 : 73 bpm Height: 5'9" SpO2: 97% Temperature: 37.0 (C) / 98.6 (F) Weight: 140 lbs 01/21/2016 Blood Pressure 1: 116/62 Code : 8480-6 BMI: 20.4 Code : 27576-2 Heart Rate 1 : 66 bpm Height: 5'9" SpO2: 97% Weight: 138 lbs 12/29/2015 Blood Pressure 1: 130/74 Code : 8480-6 BMI: 20.4 Code : 19156-5 Heart Rate 1 : 51 bpm Height: 5'9" SpO2: 98% Weight: 138 lbs 09/02/2015 Blood Pressure 1: 126/60 Code : 8480-6 BMI: 22.3 Code : 84479-6 Heart Rate 1 : 55 bpm Height: 5'9" SpO2: 96% Weight: 151 lbs 05/06/2015 Blood Pressure 1: 132/72 Code : 8480-6 BMI: 21.0 Code : 83344-4 Heart Rate 1 : 63 bpm Height: 5'9" SpO2: 97% Weight: 142 lbs 03/05/2015 Blood Pressure 1: 130/68 Code : 8480-6 BMI: 21.0 Code : 46118-0 Heart Rate 1 : 61 bpm Height: 5'9" SpO2: 96% Weight: 142 lbs 12/04/2014 Blood Pressure 1: 122/64 Code : 8480-6 BMI: 21.3 Code : 05096-1 Heart Rate 1 : 72 bpm Height: 5'9" Weight: 144 lbs 09/24/2014 Blood Pressure 1: 142/80 Code : 8480-6 BMI: 20.4 Code : 44210-5 Heart Rate 1 : 80 bpm Height: 5'9" Weight: 138 lbs 09/09/2014 Blood Pressure 1: 122/74 Code : 8480-6 BMI: 20.5 Code : 80437-1 Heart Rate 1 : 64 bpm Height: 5'9" Weight: 139 lbs 07/26/2014 Blood Pressure 1: 136/82 Code : 8480-6 BMI: 20.4 Code : 65657-9 Heart Rate 1 : 87 bpm Height: 5'9" SpO2: 92% Weight: 138 lbs 07/10/2014 Blood Pressure 1: 130/74 Code : 8480-6 BMI: 21.1 Code : 73826-0 Heart Rate 1 : 64 bpm Height: 5'9" Weight: 143 lbs 06/06/2014 Blood Pressure 1: 142/88 Code : 8480-6 BMI: 20.4 Code : 99076-3 Heart Rate 1 : 68 bpm Height: 5'9" Weight: 138 lbs 05/29/2014 Blood Pressure 1: 108/72 Code : 8480-6 BMI: 20.5 Code : 96517-5 Heart Rate 1 : 60 bpm Height: 5'9" Weight: 139 lbs 05/20/2014 Blood Pressure 1: 140/72 Code : 8480-6 BMI: 21.6 Code : 34052-8 Heart Rate 1 : 60 bpm Height: 5'9" SpO2: 98% Temperature: 36.2 (C) / 97.2 (F) Weight: 146 lbs 03/25/2014 Blood Pressure 1: 128/60 Code : 8480-6 BMI: 21.4 Code : 99836-2 Heart Rate 1 : 62 bpm Height: 5'9" Weight: 145 lbs 02/08/2014 Blood Pressure 1: 136/82 Code : 8480-6 BMI: 21.3 Code : 07171-2 Heart Rate 1 : 68 bpm Height: 5'9" Weight: 144 lbs 12/24/2013 Blood Pressure 1: 122/76 Code : 8480-6 BMI: 21.6 Code : 26087-8 Heart Rate 1 : 58 bpm Height: 5'9" Weight: 146 lbs 11/20/2013 Blood Pressure 1: 112/62 Code : 8480-6 BMI: 20.7 Code : 68870-6 Heart Rate 1 : 56 bpm Height: 5'9" Weight: 140 lbs 10/30/2013 Blood Pressure 1: 130/68 Code : 8480-6 BMI: 20.1 Code : 25156-9 Heart Rate 1 : 68 bpm Height: 5'9" SpO2: 96% Weight: 136 lbs 10/08/2013 Blood Pressure 1: 128/72 Code : 8480-6 BMI: 20.8 Code : 68449-3 Heart Rate 1 : 60 bpm Height: 5'9" Temperature: 36.6 (C) / 97.8 (F) Weight: 141 lbs 06/18/2013 Blood Pressure 1: 124/78 Code : 8480-6 BMI: 20.8 Code : 74908-2 Heart Rate 1 : 64 bpm Height: 5'9" Weight: 141 lbs 04/04/2013 Blood Pressure 1: 138/60 Code : 8480-6 BMI: 20.8 Code : 16068-0 Heart Rate 1 : 56 bpm Height: 5'9" Weight: 141 lbs 02/19/2013 Blood Pressure 1: 152/74 Code : 8480-6 BMI: 21.0 Code : 91117-1 Heart Rate 1 : 60 bpm Height: 5'9" Weight: 142 lbs 10/16/2012 Blood Pressure 1: 122/70 Code : 8480-6 BMI: 20.8 Code : 00872-4 Heart Rate 1 : 64 bpm Height: 5'9" Weight: 141 lbs 06/19/2012 Blood Pressure 1: 120/72 Code : 8480-6 BMI: 21.1 Code : 15162-3 Heart Rate 1 : 60 bpm Height: 5'9" Weight: 143 lbs 03/20/2012 Blood Pressure 1: 114/76 Code : 8480-6 Heart Rate 1: 60 bpm Respiratory Rate : 16 bpm Weight: 143 lbs 01/24/2012 Blood Pressure 1: 134/70 Code : 8480-6 Heart Rate 1: 64 bpm Weight: 143 lbs 12/20/2011 Blood Pressure 1: 98/72 Code : 8480-6 BMI: 21.1 Code : 50927-6 Heart Rate 1 : 60 bpm Height: 5'9" Respiratory Rate: 16 bpm Weight: 143 lbs 12/09/2011 Blood Pressure 1: 110/60 Code : 8480-6 Heart Rate 1: 66 bpm SpO2: 98% Weight: 141 lbs 08/25/2011 Blood Pressure 1: 112/70 Code : 8480-6 BMI: 20.8 Code : 97081-0 Heart Rate 1 : 54 bpm Height: 5'9" Respiratory Rate: 16 bpm Weight: 141 lbs 06/23/2011 Blood Pressure 1: 126/64 Code : 8480-6 Heart Rate 1: 60 bpm Respiratory Rate : 16 bpm Weight: 142 lbs 04/19/2011 Blood Pressure 1: 124/64 Code : 8480-6 BMI: 21.1 Code : 29402-2 Heart Rate 1 : 64 bpm Height: 5'9" Respiratory Rate: 16 bpm Weight: 143 lbs 03/23/2011 Blood Pressure 1: 137/71 Code : 8480-6 Heart Rate 1: 57 bpm 03/08/2011 Blood Pressure 1: 154/70 Code : 8480-6 BMI: 20.8 Code : 85857-8 Heart Rate 1 : 60 bpm Height: 5'9" Respiratory Rate: 16 bpm Weight: 141 lbs 03/01/2011 Blood Pressure 1: 178/80 Code : 8480-6 Blood Pressure 2: 168/70 Code: 8480-6 BMI: 24.1 Code: 01011-9 Heart Rate 1: 60 bpm Height: 5'9" Respiratory Rate: 16 bpm Weight: 163 lbs 02/01/2011 Blood Pressure 1: 162/84 Code : 8480-6 Heart Rate 1: 60 bpm Respiratory Rate : 16 bpm Weight: 144 lbs 01/27/2011 Blood Pressure 1: 138/54 Code : 8480-6 BMI: 21.1 Code : 04930-3 Heart Rate 1 : 68 bpm Height: 5'9" Respiratory Rate: 16 bpm Weight: 143 lbs 01/26/2011 Blood Pressure 1: 148/86 Code : 8480-6 BMI: 21.3 Code : 22373-1 Heart Rate 1 : 74 bpm Height: 5'9" Weight: 144 lbs 01/15/2011 Blood Pressure 1: 136/76 Code : 8480-6 BMI: 20.5 Code : 48872-3 Heart Rate 1 : 70 bpm Height: 5'10" Weight: 141 lbs 01/06/2011 Blood Pressure 1: 148/72 Code : 8480-6 BMI: 20.2 Code : 97698-7 Heart Rate 1 : 72 bpm Height: 5'10" Respiratory Rate: 12 bpm Weight: 139 lbs Functional Status No Functional Status data History of Present Illness Symptom Name Status Result Effective Date Notes abdominal pain Quality acute 11/14/2017 None abdominal pain Quality constant 11/14/2017 None abdominal pain Onset and Resolution ongoing 11/14/2017 None abdominal pain Onset of Symptom months ago 11/14/2017 None abdominal pain Frequency of Episodes unchanged 11/14/2017 None abdominal pain Triggers no known associated factors 11/14/2017 None abdominal pain Pertinent Findings Denies nausea 11/14/2017 None constipation Quality intermittent 2017 None constipation Onset and Resolution ongoing 2017 None constipation Alleviating Factors medication 2017 None constipation Pertinent Findings weight loss 2017 None abdominal pain Quality acute 2017 None abdominal pain Quality constant 2017 None abdominal pain Onset and Resolution ongoing 2017 None abdominal pain Onset of Symptom months ago 2017 None abdominal pain Frequency of Episodes unchanged 2017 None abdominal pain Triggers no known associated factors 2017 None abdominal pain Pertinent Findings Denies nausea 2017 None constipation Quality intermittent 10/13/2017 None constipation Onset and Resolution ongoing 10/13/2017 None constipation Alleviating Factors medication 10/13/2017 None constipation Pertinent Findings weight loss 10/13/2017 None abdominal pain Quality acute 10/13/2017 None abdominal pain Quality constant 10/13/2017 None abdominal pain Onset and Resolution ongoing 10/13/2017 None abdominal pain Frequency of Episodes unchanged 10/13/2017 None abdominal pain Pertinent Findings Denies nausea 10/13/2017 None abdominal pain Onset of Symptom months ago 10/13/2017 None abdominal pain Triggers no known associated factors 10/13/2017 None Hospital Follow Up _ Other: new onset type 2 diabetes mellitus 09/26/2017 None Hospital Follow Up Quality acute 09/26/2017 None Hospital Follow Up Alleviating Factors medication 09/26/2017 None Hospital Follow Up Pertinent Findings Other: weakness 09/26/2017 None constipation Quality improving 09/26/2017 None constipation Quality intermittent 09/26/2017 None constipation Onset and Resolution ongoing 09/26/2017 None constipation Alleviating Factors medication 09/26/2017 None constipation Pertinent Findings weight loss 09/26/2017 None Hospital Follow Up _ Other: new onset type 2 diabetes mellitus 09/12/2017 None Hospital Follow Up Quality acute 09/12/2017 None Hospital Follow Up Alleviating Factors medication 09/12/2017 None Hospital Follow Up Pertinent Findings Other: weakness 09/12/2017 None fatigue Limitation on Activities moderately limits activities 09/09/2017 None fatigue Significant Medical Conditions acid reflux 09/09/2017 None fatigue Triggers no known associated factors 09/09/2017 None fatigue Pertinent Findings Denies fever 09/09/2017 None fatigue Pertinent Findings Denies cough 09/09/2017 None constipation Quality intermittent 08/17/2017 None constipation Onset and Resolution ongoing 08/17/2017 None constipation Alleviating Factors medication 08/17/2017 None constipation Pertinent Findings weight loss 08/17/2017 None constipation Quality improving 08/17/2017 None diarrhea Onset and Resolution sudden in onset 07/20/2017 None diarrhea Onset of Symptom 2 weeks ago 07/20/2017 None diarrhea Quality stable 07/20/2017 None diarrhea Alleviating Factors diet changes 07/20/2017 None diarrhea Triggers no known associated factors 07/20/2017 None diarrhea Quality constant 07/01/2017 None diarrhea Onset and Resolution sudden in onset 07/01/2017 None diarrhea Onset of Symptom 2 weeks ago 07/01/2017 None hypertension Quality primary hypertension 06/21/2017 None hypertension [...] data Encounters Encounter Performer Location Codes Date ([id number]) 23924 EST. PATIENT, LEVEL IV Diagnosis: Irritable bowel syndrome with constipation[ICD10: K58.1] Diagnosis: Malignant neoplasm of prostate[ICD10: C61] Ale Carlos MD, [facility] CPT-4: 79964 11/14/2017 10700 EST. PATIENT, LEVEL IV Diagnosis: Slow transit constipation[ICD10: K59.01] Diagnosis: Gastro-esophageal reflux disease without esophagitis[ICD10: K21.9] Ruchi Carlos MD, [facility] CPT-4: 22419 2017 ([id number]) 94033 EST. PATIENT, LEVEL IV Diagnosis: Essential (primary) hypertension[ICD10: I10] Diagnosis: Slow transit constipation[ICD10: K59.01] Diagnosis: Underweight[ICD10: R63.6] Diagnosis: Gastro-esophageal reflux disease without esophagitis[ICD10: K21.9] Ale Carlos MD, [facility] CPT-4: 50313 10/13/2017 ([id number]) 93563 EST. PATIENT, LEVEL IV Diagnosis: Slow transit constipation[ICD10: K59.01] Diagnosis: Gastroparesis[ICD10: K31.84] Diagnosis: Gastro-esophageal reflux disease without esophagitis[ICD10: K21.9] Diagnosis: Dysuria[ICD10: R30.0] Ale Carlos MD, [facility] CPT-4: 24456 09/26/2017 ([id number]) 15815 EST. PATIENT, LEVEL IV Diagnosis: Other abnormal glucose[ICD10: R73.09] Diagnosis: Slow transit constipation[ICD10: K59.01] Ale Carlos MD, [facility] CPT-4: 49108 09/12/2017 74573 EST. PATIENT, LEVEL III Diagnosis: Other fatigue[ICD10: R53.83] Ruchi Carlos MD, [facility] CPT-4 : 91343 09/09/2017 ([id number]) 00960 EST. PATIENT, LEVEL IV Diagnosis: Slow transit constipation[ICD10: K59.01] Diagnosis: Irritable bowel syndrome with constipation[ICD10: K58.1] Diagnosis: Essential (primary) hypertension[ICD10: I10] Ale Carlos MD, [facility] CPT-4: 06507 08/17/2017 ([id number]) 20646 EST. PATIENT, LEVEL III Diagnosis: Slow transit constipation[ICD10: K59.01] Diagnosis: Gastroparesis[ICD10: K31.84] Ale Carlos MD, [facility] CPT- 4: 52783 07/20/2017 90011 EST. PATIENT, LEVEL III Diagnosis: Irritable bowel syndrome with constipation[ICD10: K58.1] Ruchi Carlos MD, [facility] CPT-4: 48289 07/01/2017 ([id number]) 11421 EST. PATIENT, LEVEL IV Diagnosis: Essential (primary) hypertension[ICD10: I10] Diagnosis: Gas pain[ICD10: R14.1] Diagnosis: Generalized anxiety disorder[ICD10: F41.1] Diagnosis: Cervicalgia[ICD10: M54.2] Diagnosis: Pain in thoracic spine[ICD10: M54.6] Diagnosis: Unsteadiness on feet[ICD10: R26.81] Ale Carlos MD, [facility] CPT-4: 97983 06/21/2017 ([id number]) 63092 EST. PATIENT, LEVEL III Diagnosis: Essential (primary) hypertension[ICD10: I10] Ale Carlos MD, [facility] CPT-4: 50872 03/21/2017 52012 EST. PATIENT, LEVEL III Diagnosis: Other allergic rhinitis[ICD10: J30.89] Nelly Carlos MD, [facility] CPT-4: 59904 03/08/2017 ([id number]) 28413 EST. PATIENT, LEVEL III Diagnosis: Encounter for immunization[ICD10: Z23] Diagnosis: Other hypotension[ICD10: I95.89] Ale Carlos MD, [facility] CPT-4: 73567 01/25/2017 ([id number]) 39677 EST. PATIENT, LEVEL III Diagnosis: Essential (primary) hypertension[ICD10: I10] Diagnosis: Acute recurrent maxillary sinusitis[ICD10: J01.01] Ale Carlos MD [facility] CPT-4: 56836 12/20/2016 ([id number]) 97554 EST. PATIENT, LEVEL III Diagnosis: Acute recurrent ethmoidal sinusitis[ICD10: J01.21] Ale Carlos MD [facility] CPT-4: 81524 12/01/2016 ([id number]) 74528 EST. PATIENT, LEVEL III Diagnosis: Bronchitis, not specified as acute or chronic[ICD10: J40] Diagnosis: Cough[ICD10: R05] Ale Carlos MD [facility] CPT-4: 10676 11/25/2016 ([id number]) 69180 EST. PATIENT, LEVEL III Diagnosis: Cough[ICD10: R05] Diagnosis: Bronchitis, not specified as acute or chronic[ICD10: J40] Diagnosis: Candidal esophagitis[ICD10: B37.81] Ale Carlos MD [facility] CPT-4: 71058 11/18/2016 ([id number]) 99582 EST. PATIENT, LEVEL IV Diagnosis: Essential (primary) hypertension[ICD10: I10] Diagnosis: Mild cognitive impairment, so stated[ICD10: G31.84] Ale Carlos MD [facility] CPT-4: 32842 08/23/2016 ([id number]) 06719 EST. PATIENT, LEVEL III Diagnosis: Essential (primary) hypertension[ICD10: I10] Ale Carlos MD [facility] CPT-4: 53242 04/26/2016 ([id number]) Miscellaneous no charge Diagnosis: Olecranon bursitis, right elbow[ICD10: M70.21] Nelly Carlos MD [facility] CPT-4: 37981 02/09/2016 ([id number]) 72453 EST. PATIENT, LEVEL III Diagnosis: Olecranon bursitis, right elbow[ICD10: M70.21] Nelly Carlos MD, [facility] CPT-4: 54475 02/03/2016 ([id number]) 34641 EST. PATIENT, LEVEL III Diagnosis: Generalized abdominal tenderness[ICD10: R10.817] Ale Carlos MD, [facility] CPT-4: 07618 01/26/2016 53826 EST. PATIENT, LEVEL IV Diagnosis: Other allergic rhinitis[ICD10: J30.89] Ruchi Carlos MD, [facility] CPT-4: 40610 01/21/2016 ([id number]) 85122 EST. PATIENT, LEVEL IV Diagnosis: Essential (primary) hypertension[ICD10: I10] Diagnosis: Hypo-osmolality and hyponatremia[ICD10: E87.1] Ale Carlos MD, [facility] CPT-4: 76216 12/29/2015 ([id number]) 20843 EST. PATIENT, LEVEL IV Diagnosis: Essential (primary) hypertension[ICD10: I10] Diagnosis: Mild cognitive impairment, so stated[ICD10: G31.84] Ale Carlos MD, [facility] CPT-4: 49540 09/02/2015 ([id number]) 23392 EST. PATIENT, LEVEL IV Diagnosis: Mixed hyperlipidemia[ICD10: E78.2] Diagnosis: Generalized anxiety disorder[ICD10: F41.1] Diagnosis: Mild cognitive impairment, so stated[ICD10: G31.84] Diagnosis: Essential (primary) hypertension[ICD10: I10] Diagnosis: Encounter for immunization[ICD10: Z23] Ale Carlos MD, [facility] CPT-4: 13351 05/06/2015 ([id number]) 72238 EST. 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 PATIENT, LEVEL IV Diagnosis: ESSENTIAL HYPERTENSION[ICD9: 401.9] Diagnosis: GENERALIZED ANXIETY DISEASE[ICD9: 300.02] Diagnosis: MILD COGNITIVE IMPAIREMT[ICD9: 331.83] Diagnosis: IRRITABLE COLON[ICD9: 564.1] Ale Carlos MD, [facility] CPT- 4: 57869 12/04/2014 ([id number]) 85527 EST. PATIENT, LEVEL IV Diagnosis: Abdominal pain[ICD9: 789.00] Diagnosis: GENERALIZED ANXIETY DISEASE[ICD9: 300.02] Diagnosis: Hyponatremia[ICD9: 276.1] Diagnosis: ESSENTIAL HYPERTENSION[ICD9: 401.9] Nelly Carlos MD, [facility] CPT-4: 67162 09/24/2014 ([id number]) 15131 EST. PATIENT, LEVEL IV Diagnosis: ESSENTIAL HYPERTENSION[ICD9: 401.9] Diagnosis: Osteoarthritis[ICD9: 715.90] Diagnosis: Mild cognitive impairment with memory loss[ICD9: 331.83] Ale Carlos MD, [facility] CPT-4: 03674 09/09/2014 ([id number]) 65910 EST. PATIENT, LEVEL III Diagnosis: GENERALIZED ANXIETY DISEASE[ICD9: 300.02] Diagnosis: Depression[ICD9: 311] Ale Carlos MD, [facility] CPT-4: 88136 07/26/2014 ([id number]) 75409 EST. PATIENT, LEVEL IV Diagnosis: ESSENTIAL HYPERTENSION[ICD9: 401.9] Diagnosis: GENERALIZED ANXIETY DISEASE[ICD9: 300.02] Diagnosis: MILD COGNITIVE IMPAIREMT[ICD9: 331.83] Ale Carlos MD, [facility] CPT-4: 24896 07/10/2014 ([id number]) 08679 EST. PATIENT, LEVEL IV Diagnosis: Dizziness[ICD9: 780.4] Diagnosis: GENERALIZED ANXIETY DISEASE[ICD9: 300.02] Diagnosis: Depression[ICD9: 311] Diagnosis: ESSENTIAL HYPERTENSION[ICD9: 401.9] Diagnosis: Urinary frequency[ICD9: 788.41] Ale Carlos MD, [facility] CPT- 4: 76984 06/06/2014 ([id number]) 08380 EST. PATIENT, LEVEL IV Diagnosis: ESSENTIAL HYPERTENSION[ICD9: 401.9] Diagnosis: GENERALIZED ANXIETY DISEASE[ICD9: 300.02] Diagnosis: Mild cognitive impairment with memory loss[ICD9: 331.83] Ale Carlos MD, [facility] CPT-4: 23344 05/29/2014 ([id number]) 20580 EST. PATIENT, LEVEL IV Diagnosis: Pneumonia[ICD9: 486] Diagnosis: COUGH[ICD9: 786.2] Diagnosis: Hyponatremia[ICD9: 276.1] Diagnosis: ALLERGIC RHINITIS[ICD9: 477.9] Ale Carlos MD, [facility] CPT- 4: 95542 05/20/2014 ([id number]) 52073 EST. PATIENT, LEVEL III Diagnosis: ESSENTIAL HYPERTENSION[ICD9: 401.9] Diagnosis: Cough[ICD9: 786.2] Ale Carlos MD [facility] CPT-4: 55056 03/25/2014 ([id number]) 62901 EST. PATIENT, LEVEL III Diagnosis: COUGH[ICD9: 786.2] Diagnosis: ALLERGIC RHINITIS[ICD9: 477.9] Nelly Carlos MD, [facility] CPT-4: 67389 02/08/2014 ([id number]) 13905 EST. PATIENT, LEVEL III Diagnosis: ESSENTIAL HYPERTENSION[ICD9: 401.9] Diagnosis: Nasal congestion[ICD9: 478.19] Ale Carlos MD, [facility] CPT- 4: 18033 12/24/2013 ([id number]) 93594 EST. PATIENT, LEVEL III Diagnosis: Seasonal allergies[ICD9: 477.9] Diagnosis: Nasal congestion[ICD9: 478.19] Diagnosis: ABNORMAL LOSS OF WEIGHT[ICD9: 783.21] Ale Carlos MD, [facility] CPT-4: 40435 11/20/2013 ([id number]) 00127 EST. PATIENT, LEVEL III Diagnosis: ABNORMAL LOSS OF WEIGHT[ICD9: 783.21] Diagnosis: MALAISE AND FATIGUE[ICD9: 780.79] Diagnosis: Hyponatremia[ICD9: 276.1] Nelly Carlos MD, [facility] CPT-4: 25176 10/30/2013 ([id number]) 80259 EST. PATIENT, LEVEL III Diagnosis: Acute maxillary sinusitis[ICD9: 461.0] Diagnosis: COUGH[ICD9: 786.2] Ale Carlos MD, [facility] CPT-4: 94493 10/08/2013 ([id number]) 67757 EST. PATIENT, LEVEL IV Diagnosis: ESSENTIAL HYPERTENSION[SNOMED: 64864945] Diagnosis: GENERALIZED ANXIETY DISEASE[ICD9: 300.02] Diagnosis: OSTEOARTH NOS-UNSPEC[ICD9: 715.90] Diagnosis: Coronary artery disease[ICD9: 414.00] Ale Carlos MD [facility] CPT-4: 57185 06/18/2013 ([id number]) 30937 EST. PATIENT, LEVEL III Diagnosis: ESSENTIAL HYPERTENSION[SNOMED: 11755423] Ale Carlos MD [facility] CPT-4: 47971 04/04/2013 ([id number]) 55521 EST. PATIENT, LEVEL IV Diagnosis: ESSENTIAL HYPERTENSION[SNOMED: 48299157] Diagnosis: Leukopenia[ICD9: 288.50] Diagnosis: Encounter for long-term (current) use of other medications[ICD9: V58.69] Ale Carlos MD [facility] CPT-4: 88024 2012 ([id number]) 31700 EST. PATIENT, LEVEL IV Diagnosis: ESSENTIAL HYPERTENSION[SNOMED: 84902435] Diagnosis: MILD COGNITIVE IMPAIREMT[ICD9: 331.83] Ale Carlos MD [facility] CPT-4: 76283 10/16/2012 ([id number]) 25198 EST. PATIENT, LEVEL IV Diagnosis: ESSENTIAL HYPERTENSION[SNOMED: 32599646] Diagnosis: GENERALIZED ANXIETY DISEASE[ICD9: 300.02] Diagnosis: IRRITABLE COLON[ICD9: 564.1] Ale Carlos MD [facility] CPT- 4: 89748 03/20/2012 26275 EST. PATIENT, LEVEL IV Diagnosis: ESSENTIAL HYPERTENSION[SNOMED: 33639371] Diagnosis: Osteoarthritis[ICD9: 715.90] Diagnosis: HYPERLIPIDEMIA[ICD9: 272.4] Ale Carlos MD [facility] CPT- 4: 66839 01/24/2012 80155 EST. PATIENT, LEVEL IV Diagnosis: ESSENTIAL HYPERTENSION[SNOMED: 39831949] Diagnosis: BPH W URINARY OBS/LUTS[ICD9: 600.01] Ale Carlos MD [facility] CPT-4: 49762 12/20/2011 ([id number]) 79822 EST. PATIENT, LEVEL III Diagnosis: Lump in the groin[ICD9: 789.30] Ale Carlos MD [facility] CPT- 4: 87098 12/09/2011 ([id number]) 46460 EST. PATIENT, LEVEL IV Diagnosis: ESSENTIAL HYPERTENSION[SNOMED: 01449384] Diagnosis: Mild cognitive impairment[ICD9: 331.83] Ale Carlos MD, [facility] CPT-4: 43692 08/25/2011 ([id number]) 47530 EST. PATIENT, LEVEL IV Diagnosis: ESSENTIAL HYPERTENSION[SNOMED: 54814782] Diagnosis: GENERALIZED ANXIETY DISEASE[ICD9: 300.02] Diagnosis: MILD COGNITIVE IMPAIREMT[ICD9: 331.83] Diagnosis: IRRITABLE COLON[ICD9: 564.1] Ale Carlos MD, [facility] CPT- 4: 57322 06/23/2011 ([id number]) 35501 EST. 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 PATIENT, LEVEL I Diagnosis: ESSENTIAL HYPERTENSION[SNOMED: 86952781] Ale Carlos MD, [facility] CPT-4: 57551 03/23/2011 78634 EST. PATIENT, LEVEL III Diagnosis: ESSENTIAL HYPERTENSION[SNOMED: 45253242] Diagnosis: Laceration of finger, index[ICD9: 883.0] Ale Carlos MD, [facility] CPT-4: 68507 03/08/2011 69078 EST. PATIENT, LEVEL III Diagnosis: ESSENTIAL HYPERTENSION[SNOMED: 83724382] Diagnosis: Irritable bowel syndrome (IBS)[ICD9: 564.1] Ale Carlos MD, [facility] CPT-4: 65465 03/01/2011 43079 EST. PATIENT, LEVEL IV Diagnosis: Mild cognitive impairment with memory loss[ICD9: 331.83] Diagnosis: GENERALIZED ANXIETY DISEASE[ICD9: 300.02] Diagnosis: Bruising[ICD9: 924.9] Diagnosis: HYDROCELE[ICD9: 603.9] Ale Carlos MD, [facility] CPT-4: 48650 02/01/2011 86425 EST. PATIENT, LEVEL III Diagnosis: Testicular pain[ICD9: 608.9] Diagnosis: GENERALIZED ANXIETY DISEASE[ICD9: 300.02] Nelly Carlos MD, [facility] CPT-4: 09667 01/27/2011 72134 EST. PATIENT, LEVEL III Diagnosis: Arm bruise[ICD9: 923.9] Nelly Carlos MD, [facility] CPT-4: 82786 01/26/2011 OFFICE VISIT, NEW - LEVEL 4 Diagnosis: DIARRHEA[ICD9: 787.91] Diagnosis: Elevated liver function tests[ICD9: 790.6] Diagnosis: Abdominal discomfort[ICD9: 789.00] Ale Carlos MD, [facility] CPT-4: 29188 01/06/2011 Plan of Care Planned Activity Notes Codes Status Date Visit Plan: Irritable bowel syndrome with constipation - continue with trulance as prescribed by Dr. Wang. Avoid irritants to GI tract , monitor symptoms. Pt is not to take the Amitriptyline due to increased risk of falling and owrsening constipation when on the medication. Malignant prostate cancer - per pt report - grade 5 - recommended pt to discuss radiation treatments with the surgeon - there are new treatments which can avoid rectal irritation. 11/14/2017 Patient Education: Patient Medication Summary Completed 11/14/2017 Referral: External, Ordering Provider Referral Appointment Confirmed 2017 Care Plan: Referral Order SNOMED-CT : 018298276 Pending 10/28/2017 Visit Plan: Constipation - uncontrolled - pt given linzess samples per Dr. Carlos instructions - will refer back to Dr. Wang for ongoing abd pain - I have discussed with the patient the need for adequate fiber and water intake to facilitate soft, easily passed stools. The pt noted understanding of our conversation. I have given the patient a recipe for "power pudding" - equal parts, bran flakes, prune juice, and apple sauce. The pt is to call if symptoms not improved on this regimen. Esophageal Reflux - the patient has been counseled against excessive intake of caffeine, spicy foods, peppermint , and cinnamon - all of which can exacerbate esophageal reflux. The patient is to take medications as prescribed and call the office if the symptoms are not improving. 2017 [phone] ([facility] Moderate 2017 Patient Education: Patient Medication Summary Completed 2017 Visit Plan: Hypertension - well controlled - continue with current medications, continue with no added salt diet. Pt has been encouraged to exercise daily. The pt has been advised to call the office if there are any acute concerns about change in blood pressure readings at home. Constipation - Discussed with Dr. Dash - He needs to continue with miralax 17gram daily and I would recommend that he also start on one dulcolax every other day. Increase portion size of meat - to at least two slices on your sandwich and use cheese GERD: if you are still taking protonix ( pantoprazole is generic name) - and for your stomach pain - I want you to use zantac 150mg in the morning and pantoprazole 40mg at night. Underweight - increase portion size. 10/13/2017 [facility]ment: [phone] ([facility] 10/13/2017 Patient Education: Patient Medication Summary Completed 10/13/2017 Visit Plan: Constipation - continue with Miralax - monitor symptoms - Continue with regular diet. pt advised as follow: use Senna S - up to twice daily if needed for constipation. GERD: if you are still taking protonix ( pantoprazole is generic name) - do NOT start on the famotidine - IF, HOWEVER, you are not still taking the protonix, then start on the famotidine. When Dr. Howard did the scope down your throat, he found irritation in the stomach and wanted to keep you on the protonix. Gastroparesis - go ahead and start on the reglan at 5mg three times daily with meals- if you start having rigidity of movement - stop the medication. 09/26/2017 Visit Plan: Constipation - continue with Miralax - monitor symptoms - Continue with regular diet. pt advised as follow: use Senna S - up to twice daily if needed for constipation. GERD: if you are still taking protonix ( pantoprazole is generic name) - do NOT start on the famotidine - IF, HOWEVER, you are not still taking the protonix, then start on the famotidine. When Dr. Howard did the scope down your throat, he found irritation in the stomach and wanted to keep you on the protonix. Gastroparesis - go ahead and start on the reglan at 5mg three times daily with meals- if you start having rigidity of movement - stop the medication. 09/26/2017 Appointment: Ale Carlos WPtel: [facility] (15 min) Moderate 09/26/2017 Patient Education: Patient Medication Summary Completed 09/26/2017 Appointment: Ale Carlos WPtel: [facility] (30 min) Complex 09/14/2017 Visit Plan: Constipation - continue with Miralax - monitor symptoms - - if constipation worsens - restart Senna. Continue with regular diet. Abnormal glucose on recent ER labs -pt to have HgbA1c today and he is to hold any diabetic medications at this time. He has not had any abnormal blood glucose readings on labs recently except through the ER. Once we have the HgbA1c we will then determine if he is to continue with the glyburide as prescribed through the ER. 09/12/2017 Appointment: Ale Carlos WPtel: [facility] (30 min) Complex 09/12/2017 Patient Education: Patient Medication Summary Completed 09/12/2017 Visit Plan: Ongoing fatigue - persistent - will check labs and treat as indicated - pt is to notify clinic if symptoms do not improve, if they worsen, or with any changes, questions, or concerns. 09/09/2017 Appointment: Ruchi Agee WPtel: [facility] (30 min) Complex 09/09/2017 Patient Education: Patient Medication Summary Completed 09/09/2017 Care Plan: Vitamin D 25 Oh Pending 09/09/2017 Visit Plan: Constipation - continue with Miralax - monitor symptoms - - if constipation worsens - restart Senna. Continue with regular diet. Hypertension - well controlled - continue with current medications, continue with no added salt diet. Pt has been encouraged to exercise daily. The pt has been advised to call the office if there are any acute concerns about change in blood pressure readings at home. 08/17/2017 [facility]ment: [phone] [place] (15 min) Moderate 08/17/2017 Patient Education: Patient Medication Summary Completed 08/17/2017 Visit Plan: Constipation and Suspected Gastroparesis - Start on Reglan at a 1/2 tablet three times daily about 30minutes before mealtime. If, after a week the GI symptoms of slow motility is not improved, then you can increase the Reglan to a full tablet 30minutes before meals. Take an extra dose of Miralax tonight and take your regular dose in the morning - call the office if your bowels have not moved by noon. Advance your diet back to regular foods. 07/20/2017 App[facility]ment: [phone] [place] (30 min) Complex 07/20/2017 Appointment: Ale Carlos [facility] [place] ([facility] min) Complex 07/20/2017 Patient Education: Patient Medication Summary Completed 07/20/2017 [facility]ment: [phone] [place] (30 min) Complex 07/19/2017 Appointment: Ale Carlos [facility] [place] (15 min) Moderate 07/18/2017 Visit Plan: Constipation - uncontrolled - I have discussed with the patient the need for adequate fiber and water intake to facilitate soft , easily passed stools. The pt noted understanding of our conversation. I have given the patient a recipe for "power pudding" - equal parts, bran flakes, prune juice, and apple sauce. The pt is to call if symptoms not improved on this regimen. 07/01/2017 Appointment[phone] [place] (30 min) Complex 07/01/2017 Appointment: Ruchi Agee WPtel: [facility] (30 min) Complex 07/01/2017 Patient Education: Patient Medication Summary Completed 07/01/2017 Visit Plan: Neck and upper back pain and gait unsteadiness - referral to [facility] for upper and low back pain and left arm pain and have gait eval. get Aspercreme from [employer]an[employer] for your upper neck/upper back. Abdominal upset/cramping - lactaid pills - take before you drink milk or eat cheese or ice cream or yogurt use gas-ex one pill three times daily Chronic anxiety - stable - continue with current management. 06/21/2017 Appointment: Ale Carlos WPtel: [phone] [facility] (30 min) Complex 06/21/2017 Patient Education: Patient Medication Summary Completed 06/21/2017 Visit Plan: Hypertension - well controlled - continue with current medications, continue with no added salt diet. Pt has been encouraged to exercise daily. The pt has been advised to call the office if there are any acute concerns about change in blood pressure readings at home. 03/21/2017 Appointment: Ale Carlos WPtel: [facility] (30 min) Complex 03/21/2017 Patient Education: [...] allergy spray. 03/08/2017 Appointment: Nelly Keen WPtel: [phone] [phone] (30 min) Complex 03/08/2017 Patient Education: [...] shot 01/25/2017 Appointment: Ale Carlos WPtel: [phone] [facility] (30 min) Complex 01/25/2017 Patient Education: Patient [...] not improving. 12/20/2016 Appointment: Ale Carlos WPtel: [phone] [facility] (30 min) Complex 12/20/2016 Patient Education: Patient Medication Summary Completed 12/20/2016 Patient Education: Hypertension Completed 12/20/2016 Appointment: Ruchi Agee WPtel: [phone] [facility] [facility] - Annual Wellness Visit 12/03/2016 Visit Plan: [...] acutely worsen. 11/25/2016 Appointment: Ale Carlos WPtel: [phone] [facility] (15 min) Moderate 11/25/2016 Patient Education: Patient [...] have thrush. 11/18/2016 Appointment: Ale Carlos WPtel: [phone] [facility] (15 min) Moderate 11/18/2016 Patient Education: [...] and namenda. labs to be done from [facility] 08/23/2016 Appointment: Ale Carlos WPtel: [phone] [facility] (30 min) Complex 08/23/2016 Patient Education: Patient [...] at home. 04/26/2016 Appointment: Ale Carlos WPtel: [phone] [facility] (30 min) Complex 04/26/2016 Patient Education: Patient Medication Summary Completed 04/26/2016 Visit Plan: Joint effusion - recommended drainage and referral to orthopedic surgeon for surgical debridement of bursa 02/17/2016 Appointment: Ale Carlos WPtel: [phone] [facility] [place] (30 min) Complex 02/17/2016 Patient Education: Patient Medication Summary Completed 02/17/2016 Visit Plan: Bursitis-right elbow-drained today in the office-increase anti inflammatories for the next 5 days as directed-call if symptoms do not resolve, swelling returns or new symptoms develop-patient verbalized understanding of plan. 02/09/2016 Appointment: Nelly Keen WPtel: [phone] (30 min) Complex 02/09/2016 Patient Education: Patient Medication Summary Completed 02/09/2016 Patient Education: Patient Medication Summary Completed 02/05/2016 Care Plan: Metabolic Pending 02/05/2016 Visit Plan: Bursitis-right elbow-drained today in the office-increase anti inflammatories for the next 5 days as directed-call if symptoms do not resolve, swelling returns or new symptoms develop-patient verbalized understanding of plan. 02/03/2016 Appointment: Nelly Keen WPtel: [phone] [phone] (30 min) Complex 02/03/2016 Patient Education: Patient Medication Summary Completed 02/03/2016 Patient Education: Patient Medication Summary Completed 01/30/2016 Care Plan: Metabolic Due on Pending 01/30/2016 Visit Plan: Abdominal pain - nausea - Pt to have IV fluids at hospital 01/26/2016 Appointment: Ale Carlos WPtel: [facility] (30 min) Complex 01/26/2016 Patient Education: [...] allergy spray. 01/21/2016 Appointment: Nelly Keen WPtel: [phone] (30 min) Complex 01/21/2016 Patient Education: [...] of treatment. 09/02/2015 [facility]ment[phone] ([facility] Moderate 09/02/2015 Patient [...] injection today 05/06/2015 App[facility]ment: [phone] ([facility]) Moderate 05/06/2015 Patient Education: Patient Medication Summary Completed 05/06/2015 Patient Education: Hypertension Completed 05/06/2015 Care Plan: COMPLETE CBC AUTOMATED LOINC : 74693-0 Ordered 05/06/2015 Visit Plan: Hypertension - well [...] current medications. 03/05/2015 Appointment: Ale Carlos WPtel: [address] [facility] (30 min) Complex 03/05/2015 Patient Education: Patient [...] -has improved. 12/04/2014 Appointment: [phone] Follow up 12/04/2014 Patient Education: [...] Care Plan: CT ABD & PELV 1/> MOHIT MALAVE : 57407-6 Ordered 09/24/2014 Visit Plan: Hypertension - well [...] THAT HE SHOULD NOT BE DRIVING TO [place] 07/26/2014 Appointment: Sick 07/26/2014 Appointment: Sick 07/26/2014 [...] medication list. 07/10/2014 Appointment: Ale Carlos WPtel: [address] [place], [place] [id number] Follow up 07/10/2014 Patient Education: Patient Medication Summary Completed 07/10/2014 Patient Education: Hypertension Completed 07/10/2014 Appointment: Ale Carlos WPtel: [address] [place], [place] [address] Follow up 06/20/2014 Appointment: Ale Carlos WPtel: [facility] Follow up 06/10/2014 Visit Plan: Anxiety [...] in blood pressure readings at home. Urinary qtndtihsh-TXC-vgbtfq flomax to bedtime Dizziness-stop hydrocodone and ativan [...] 3 WEEKS 05/29/2014 Appointment: Ale Carlos [facility]Ptel[facility] S[facility] 05/29/2014 Patient Education: Patient Medication Summary Completed 05/29/2014 Patient Education: Hypertension Completed 05/29/2014 Appointment: Ale Carlos WPtel: [address] [place], [place] [address] Lab Draw 05/23/2014 Patient Education: Patient Medication Summary Completed 05/23/2014 Visit Plan: Pneumonia - Pt has been diagnosed with pneumonia by physical exam. A chest xray has been ordered as have antibiotics. The pt is aware of the diagnosis and the need for acute treatment of this illness. Zflrlmifu-nupzj-gujkggp flonase nasal spray Hyponatremia-increase gatorade as directed 05/20/2014 Visit Plan: Pneumonia - Pt has been diagnosed with pneumonia by physical exam. A chest xray has been ordered as have antibiotics. The pt is aware of the diagnosis and the need for acute treatment of this illness. Zvgjvgvga-yefrk-pkyexsq flonase nasal spray Hyponatremia-increase gatorade as directed ADDENDUM: RECOMMEND PATIENT START ON ALBUTEROL NEBULIZER TREATMENTS EVERY 4 HOURS NEEDED FOR SHORTNESS OF BREATH/WHEEZING. DX SECONDARY PNEUMONIA FROM INFLUENZA, COUGH 05/20/2014 Patient Education: Patient Medication Summary Completed 05/20/2014 Appointment: [phone] Injection 03/26/2014 Patient Education: Patient Medication Summary [...] Merlos. 03/25/2014 Appointment: [phone] Follow up 03/25/2014 Patient Education: Patient Medication Summary Completed 03/25/2014 Patient Education: Hypertension Completed 03/25/2014 Visit Plan: Kzwyl-amhmpaopk-mjvcnds laryngeal reflux-RX for protonix (patient is on [...] at home. 12/24/2013 Appointment: Ale Carlos WPtel: [address] [place], [place] [phone] Follow up 12/24/2013 Patient Education: Patient Medication [...] portion size. 11/20/2013 Appointment: Ale Carlos WPtel: [address] [place], [place] [phone] Follow up 11/20/2013 Patient Education: Patient Medication Summary Completed 11/20/2013 Appointment: Ale Carlos WPtel: [address] [place], [place] [id number] Follow up 11/06/2013 Visit Plan: Weight loss-increase portions-add snacks in the morning and afternoon-follow up in 3 weeks for weight check Low sodium- check labs-restart gatorade Annsnid-ifqsfn-qjusi labs and UA 10/30/2013 Patient Education: Patient Medication Summary Completed 10/30/2013 Appointment: Ale Carlos WPtel: [address] [place], [place] [address] Follow up 10/16/2013 Visit Plan: Sinusitis - [...] Merlos. 06/18/2013 Appointment: Ale Carlos WPtel: [phone] [facility] Follow up 06/18/2013 Patient Education: Patient [...] acute concerns. 04/04/2013 Appointment: [phone] Follow [facility] 04/04/2013 Patient Education: Patient Medication [...] report. 02/19/2013 Appointment: [phone] Follow up 02/19/2013 Patient Education: Patient Medication [...] memory loss. 10/16/2012 Appointment: [phone] Follow up 10/16/2012 Patient Education: Patient Medication [...] return. 06/19/2012 Appointment: [phone] Follow up 06/19/2012 Patient Education: [...] bentyl. 03/20/2012 Appointment: Ale Carlos WPtel: [phone] [facility] Follow up 03/20/2012 Patient Education: Patient Medication Summary Completed 03/20/2012 Patient Education: High Blood Pressure: Essential Hypertension Completed 2011 Appointment: [phone] Follow up 02/22/2012 Visit Plan: [...] needed. 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 I anticipate it will be at least 4-6 months before he can be off of the plavix and aspirin for additonal procedures unless it is of extreme urgency. 12/20/2011 Appointment: Ale Carlos [facility]Ptel: [facility] Follow up 12/20/2011 Patient Education: Patient Medication Summary Completed 12/20/2011 Patient Education: High Blood Pressure: Essential Hypertension Completed 2011 Appointment: Ale Carlos [facility]Ptel: [facility] Other 12/13/2011 Visit Plan: Pain in groin post heart cath with increased discomfort and increased size - will order an ultrasound for today. 12/09/2011 Appointment: Ale Carlos [facility]Ptel: [facility] Other 12/09/2011 Patient Education: Patient Medication Summary [...] either medication. 08/25/2011 Appointment: Ale Carlos WPtel: [address] [place], [place] [phone] Other 08/25/2011 Patient Education: Patient Medication Summary [...] low doses. 06/23/2011 Appointment: Ale Carlos WPtel: [address] [place], [place] [id number] Other 06/23/2011 Patient Education: Patient Medication Summary Completed 06/23/2011 Patient Education: High Blood Pressure: Essential Hypertension Completed 2011 Appointment: Ale Carlos WPtel: [address] [place], [place] [id number] Other 04/26/2011 Visit Plan: Hypertension - [...] seeds, etc. 04/19/2011 Appointment: Ale Carlos WPtel: [phone] [facility] Other 04/19/2011 Patient Education: Patient Medication Summary Completed 04/19/2011 Patient Education: High Blood Pressure: Essential Hypertension Completed 2010 Patient Education: Diverticulosis Diet Completed 04/19/2011 Appointment: Nelly Keen WPtel: 101 [phone] Other 03/23/2011 Patient Education: Patient Medication Summary Completed 03/23/2011 Patient Education: High Blood Pressure: Essential Hypertension Completed 2010 Visit Plan: Record blood pressure and heart rate at home and drop the readings by the office in two weeks. No change in medications today. Laceration - removed suture today - pt to call if any complications arise. 03/08/2011 Appointment: Ale Carlos WPtel: [phone] [facility] Other 03/08/2011 Patient Education: Patient Medication Summary [...] day. 03/01/2011 Appointment: Ale Carlos WPtel: [phone] [facility] Other 03/01/2011 Patient Education: Patient Medication Summary Completed 03/01/2011 Patient Education: High Blood Pressure: Essential Hypertension Completed 2010 Appointment: Nelly Keen WPtel: [phone] [phone] [place] Injection 02/25/2011 Patient Education: Patient Medication Summary Completed 02/25/2011 Appointment: Ale Carlos WPtel: [phone] [facility] [place] Injection 02/16/2011 Patient Education: Patient Medication Summary Completed 02/16/2011 Appointment: Ale Carlos WPtel: [address] [place], [place] [phone] [place] Injection 02/09/2011 Patient Education: Patient Medication Summary Completed 02/09/2011 Appointment: Ale Carlos WPtel: [facility] Follow up 02/02/2011 Visit Plan: Hydrocele [...] with his son - Kenji Dash in [place]. Upon our conversation crnv-vmh-oxiok, Kenji vocalized concerns for his Dad's memory. He stated that he has noticed his father not being as quick in his cognitive functioning, he has noticed some concerns with driving as well. He states that he will discuss these concerns with his parents and other siblings. 02/01/2011 Appointment: Ale Carlos WPtel: [facility] Other 02/01/2011 Patient Education: Patient Medication [...] as needed. 01/27/2011 Appointment: Ale Carlos WPtel: [address] [place], [place] [phone] [place] New Patient 01/27/2011 Patient Education: Patient Medication Summary Completed 01/27/2011 Visit Plan: Bruising/hematoma left arm-discussed natural and expected course of this diagnosis and to alert me if symptoms do not follow expected course or if any worse, Continue with ice/heat as needed for discomfort. Call for any concerns. 01/26/2011 Appointment: Nelly Keen WPtel: [facility] [place] [address] Other 01/26/2011 Patient Education: Patient Medication Summary [...] full course. 01/15/2011 Appointment: Nelly Keen WPtel: [facility] [place] [address] Other 01/15/2011 Patient Education: Patient Medication Summary [...] free diet. 01/06/2011 Appointment: Ale Carlos [facility]Ptel: [facility] [facility] 01/06/2011 Patient Education: Patient Medication Summary Completed 01/06/2011 Referral: External, Ordering Provider Referral Relationship Instructions Comment . Constipation - uncontrolled - pt given linzess samples per Dr. Carlos instructions - will refer back to Dr. Wang for ongoing abd pain - I have discussed with the patient the need for adequate fiber and water intake to facilitate soft, easily passed stools. The pt noted understanding of our conversation. I have given the patient a recipe for "power pudding" - equal parts, bran flakes, prune juice, and apple sauce. The pt is to call if symptoms not improved on this regimen. Esophageal Reflux - the patient has been counseled against excessive intake of caffeine, spicy foods, peppermint, and cinnamon - all of which can exacerbate esophageal reflux. The patient is to take medications as prescribed and call the office if the symptoms are not improving. . Constipation - uncontrolled - I have discussed with the patient the need for adequate fiber and water intake to facilitate soft, easily passed stools. The pt noted understanding of our conversation. I have given the patient a recipe for "power pudding" - equal parts, bran flakes, prune juice , and apple sauce. The pt is to call if symptoms not improved on this regimen. I sent a prescription of generic zyrtec to [facility] - if it is expensive get [...] have the biopsy until okayed by his core blower operator.. I anticipate it will be at least 4-6 months before he can be off of the plavix and aspirin for additonal procedures unless it is of extreme urgency. CHECK LABS-CBC, CMP, UA WITH C&S IF INDICATED . Weight loss-increase portions-add snacks in the morning and afternoon-follow up in 3 weeks for weight check Low sodium-check labs-restart gatorade Wcwptda-csfisv-uoium labs and UA . Joint effusion - recommended drainage and referral to orthopedic surgeon for surgical debridement of bursa . Irritable bowel syndrome with constipation - continue with trulance as prescribed by Dr. Wang. Avoid irritants to GI tract, monitor symptoms. Pt is not to take the Amitriptyline due to increased risk of falling and owrsening constipation when on the medication. Malignant prostate cancer - per pt report - grade 5 - recommended pt to discuss radiation treatments with the surgeon - there are new treatments which can avoid rectal irritation. Nasal spray- use twice daily, one spray [...] improvement of his anxiety and memory loss. Discussed with Dr. Dash - He needs to continue with miralax 17gram daily and I would recommend that he also start on one dulcolax every other day. Increase portion size of meat - to at least two slices on your sandwich and use cheese for your stomach pain - I want you to use zantac 150mg in the morning and pantoprazole 40mg at night.. Hypertension - well controlled - continue with current medications, continue with no added salt diet. Pt has been encouraged to exercise daily. The pt has been advised to call the office if there are any acute concerns about change in blood pressure readings at home. Constipation - Discussed with Dr. Dash - He needs to continue with miralax 17gram daily and I would recommend that he also start on one dulcolax every other day. Increase portion size of meat - to at least two slices on your sandwich and use cheese GERD: if you are still taking protonix ( pantoprazole is generic name) - and for your stomach pain - I want you to use zantac 150mg in the morning and pantoprazole 40mg at night. Underweight - increase portion size. . Bruising/hematoma left arm-discussed natural and expected [...] need for acute treatment of this illness. Bdibjkwyv-wywwf-xnbjxek flonase nasal spray Hyponatremia-increase gatorade as directed . Pneumonia - Pt has been diagnosed with pneumonia by physical exam. A chest xray has been ordered as have antibiotics. The pt is aware of the diagnosis and the need for acute treatment of this illness. Troprgqpw-grttd-zhaxcsn flonase nasal spray Hyponatremia-increase gatorade as directed ADDENDUM: RECOMMEND PATIENT START ON ALBUTEROL NEBULIZER TREATMENTS EVERY 4 HOURS NEEDED FOR SHORTNESS OF BREATH/WHEEZING. DX SECONDARY PNEUMONIA FROM INFLUENZA, COUGH . Abdominal pain - nausea - Pt [...] to two times a day. . Hypertension - well controlled - continue [...] in blood pressure readings at home. . Ongoing fatigue - persistent - will check labs and treat as indicated - pt is to notify clinic if symptoms do not improve, if they worsen , or with any changes, questions, or concerns. Blood pressure check today in the [...] twice HTN-well controlled-no change in treatment . Nycln-rbmyuiinx-uykquqx laryngeal reflux-RX for protonix (patient is on [...] the lactose free diet. get Aspercreme from [facility] for your upper neck/upper back. lactaid pills - take before you drink milk or eat cheese or ice cream or yogurt use gas-ex one pill three times daily . Neck and upper back pain and gait unsteadiness - referral to [facility] for upper and low back pain and left arm pain and have gait eval. get Aspercreme from [facility] for your upper neck/upper back. Abdominal upset/cramping [...] with his son - Kenji Dash in [place]. Upon our conversation uudk-lsn-coodm, Kenji vocalized concerns for his Dad's memory. [...] seems to be making Dr. Dash nauseated. . Constipation - continue with Miralax - monitor symptoms - - if constipation worsens - restart Senna. Continue with regular diet. Abnormal glucose on recent ER labs -pt to have HgbA1c today and he is to hold any diabetic medications at this time. He has not had any abnormal blood glucose readings on labs recently except through the ER. Once we have the HgbA1c we will then determine if he is to continue with the glyburide as prescribed through the ER. decrease Protonix (pantoprazole) to ONE pill ONE [...] changes. Continue with current plan of treatment. if you are still taking protonix ( pantoprazole is generic name) - do NOT start on the famotidine - IF, HOWEVER, you are not still taking the protonix, then start on the famotidine. When Dr. Howard did the scope down your throat, he found irritation in the stomach and wanted to keep you on the protonix. go ahead and start on the reglan at 5mg three times daily with meals- if you start having rigidity of movement - stop the medication. use Senna S - up to twice daily if needed for constipation. . Constipation - continue with Miralax - monitor symptoms - Continue with regular diet. pt advised as follow: use Senna S - up to twice daily if needed for constipation. GERD: if you are still taking protonix ( pantoprazole is generic name) - do NOT start on the famotidine - IF, HOWEVER, you are not still taking the protonix, then start on the famotidine. When Dr. Howard did the scope down your throat, he found irritation in the stomach and wanted to keep you on the protonix. Gastroparesis - go ahead and start on the reglan at 5mg three times daily with meals- if you start having rigidity of movement - stop the medication. if you are still taking protonix ( pantoprazole is generic name) - do NOT start on the famotidine - IF, HOWEVER, you are not still taking the protonix, then start on the famotidine. When Dr. Howard did the scope down your throat, he found irritation in the stomach and wanted to keep you on the protonix. go ahead and start on the reglan at 5mg three times daily with meals- if you start having rigidity of movement - stop the medication. use Senna S - up to twice daily if needed for constipation. . Constipation - continue with Miralax - monitor symptoms - Continue with regular diet. pt advised as follow: use Senna S - up to twice daily if needed for constipation. GERD: if you are still taking protonix ( pantoprazole is generic name) - do NOT start on the famotidine - IF, HOWEVER, you are not still taking the protonix, then start on the famotidine. When Dr. Howard did the scope down your throat, he found irritation in the stomach and wanted to keep you on the protonix. Gastroparesis - go ahead and start on the reglan at 5mg three times daily with meals- if you start having rigidity of movement - stop the medication. Start on Reglan at a 1/2 tablet three times daily about 30minutes before mealtime. If, after a week the GI symptoms of slow motility is not improved, then you can increase the Reglan to a full tablet 30minutes before meals. Take an extra dose of Miralax tonight and take your regular dose in the morning - call the office if your bowels have not moved by noon. Advance your diet back to regular foods. . Constipation and Suspected Gastroparesis - Start on Reglan at a 1/2 tablet three times daily about 30minutes before mealtime. If, after a week the GI symptoms of slow motility is not improved, then you can increase the Reglan to a full tablet 30minutes before meals. Take an extra dose of Miralax tonight and take your regular dose in the morning - call the office if your bowels have not moved by noon. Advance your diet back to regular foods. . Hypertension - well controlled - continue [...] THAT HE SHOULD NOT BE DRIVING TO [place] Pt is to try 1/2 pill of [...] then trial off of the bentyl. . Hypertension - well controlled - continue [...] continue with treatment per Dr. Merlos. . Record blood pressure and heart rate [...] in blood pressure readings at home. Urinary usjwmtdmp-IGJ-bvqxih flomax to bedtime Dizziness-stop hydrocodone and ativan [...] pt is to call for acute concerns. for now - keep on the Miralax - use the miralax daily - if the bowels start to firm up too much or your do not have a bowel movement for over 24 hours, then restart the Senna. Advance your diet back to regular foods. . Constipation - continue with Miralax - monitor symptoms - - if constipation worsens - restart Senna. Continue with regular diet. Hypertension - well controlled - continue with current medications, continue with no added salt diet. Pt has been encouraged to exercise daily. The pt has been advised to call the office if there are any acute concerns about change in blood pressure readings at home. decrease CELEXA (generic name is citalopram) - [...] if symptoms of irritable colon return. . Ethmoid sinusitis - check sinus xray - if positive will call out rx for antibiotic nasal spray
--- NOTE | 2018-01-07 12:54 | ED General ---
General Chief Complaint: Respiratory Problems Stated Complaint: SOB, DIARRHEA Source of Information: Patient Exam Limitations: No Limitations History of Present Illness Date Seen by Provider: Jan 07, 2018 Time Seen by Provider: 12:52 Initial Comments To ER with reports of shortness of breath, cough is nonproductive, constipation. He states that he has not had a bowel movement in 2 days. He's been seen here 6 times within the past month with extensive workup done. He is also seen primary care doctor GEORGIE. He also follows with gastroenterology Dr. Wang in [facility]. He does report that he feels a bit anxious. Severity: Moderate Associated Systoms: Cough; No Fever/Chills, No Nausea/Vomiting Allergies and Home Medications Allergies Coded Allergies: butorphanol (Verified Allergy, Unknown, 08/22/17) ketorolac (Verified Adverse Reaction, Mild, STATES CAUSES MORE PAIN, ) Home Medications Amlodipine Besylate 10 Mg Tablet, 10 MG PO HS, (Reported) Aspirin 81 Mg Tablet.dr, 81 MG PO DAILY, (Reported) Calcium Polycarbophil 625 Mg Tablet, 625 MG PO DAILY, (Reported) Cefdinir 300 Mg Capsule, 300 MG PO BID Prescribed by: ZAYDA NAIR on 12/13/17 0704 Cetirizine HCl 10 Mg Tablet, 10 MG PO DAILY Prescribed by: JONN REID on 04/14/16 0821 Citalopram Hydrobromide 10 Mg Tablet, 10 MG PO DAILY, (Reported) Clopidogrel Bisulfate 75 Mg Tablet, 75 MG PO DAILY, (Reported) Donepezil HCl 10 Mg Tablet, 10 MG PO HS, (Reported) Famotidine 20 Mg Tablet, 20 MG PO BID Prescribed by: SHU TODD on 09/24/17 221 Finasteride 5 Mg Tablet, 5 MG PO DAILY, (Reported) Fluticasone Propionate 9.9 Ml [place].susp, 2 SPRAY NSEACH DAILY 2 SPRAYS PER NOSTRIL DAILY X 2 DAYS THEN 1 SPRAY DAILY Prescribed by: YANETH BRICEÑO on 12/26/17 1544 Glyburide 1.25 Mg Tablet, 1.25 MG PO DAILY Prescribed by: AQUILINO DUDLEY on 09/10/177 Lisinopril 20 Mg Tablet, 20 MG PO DAILY, (Reported) Melatonin/Pyridoxine 1 Each Tablet, 5 MG PO HS, (Reported) Meloxicam 15 Mg Tablet, 7.5 MG PO DAILY, (Reported) Memantine HCl 10 Mg Tablet, 10 MG PO BID, (Reported) Metoclopramide HCl 5 Mg Tablet, 5 MG PO ACHS Prescribed by: SHU TODD on 09/24/172209 Mirtazapine 15 Mg Tablet, 15 MG PO DAILY, (Reported) Multivitamin 1 Each Capsule, 1 EACH PO DAILY, (Reported) Pantoprazole Sodium 40 Mg Tablet.dr, 40 MG PO DAILY Prescribed by: LUCAS CALLES on 10/22/17 1326 Ropinirole HCl 0.25 Mg Tab, 0.25 MG PO BID Prescribed by: JONN REID on 04/14/16 0825 Solifenacin Succinate 5 Mg Tablet, 5 MG PO DAILY, (Reported) Sucralfate 1 Gm Tablet, 1 GM PO ACHS makes with 2 teaspoon of water to dissolve into a slurry. Alternatively, may swallow the tablet in solid form Prescribed by: LUCAS CALLES on 10/22/17 132 Patient Home Medication List Home Medication List Reviewed: Yes Review of Systems Review of Systems Constitutional: see HPI EENTM: see HPI Respiratory: see HPI, cough Cardiovascular: no symptoms reported Gastrointestinal: constipation Genitourinary: no symptoms reported Musculoskeletal: no symptoms reported Skin: no symptoms reported Psychiatric/Neurological: No Symptoms Reported Hematologic/Lymphatic: No Symptoms Reported Immunological/Allergic: no symptoms reported Past Uqrlrzb-Szrzxi-Mvhsyn Hx Patient Social History 2nd Hand Smoke Exposure: No Recent Foreign Travel: No Contact w/Someone Who Travel: No Recent Hopitalizations: No Immunizations Up To Date Tetanus Booster (TDap): Less than 5yrs Date of Pneumonia Vaccine: May 09, 2012 Date of Influenza Vaccine: Feb 06, 2017 Seasonal Allergies Seasonal Allergies: No Past Medical History Surgeries: Yes Abdominal, Adenoidectomy, Cardiac, Coronary Stent, Eye Surgery, Orthopedic, Tonsillectomy, Transurethral Resection Respiratory: No Cardiac: Yes (STENTS X2) Coronary Artery Disease, High Cholesterol, Hypertension Neurological: Yes (1993-STROKE; RESTLESS LEG SYNDROME) Dementia, Stroke Reproductive Disorders: No Sexually Transmitted Disease: No HIV/AIDS: No Genitourinary: Yes (HX TURP; PROSTATE CANCER) Benign Prostatic Hyperpl, Prostate Problems Gastrointestinal: Yes ("GASTRIC EROSIONS") Gastroesophageal Reflux, Chronic Constipation, Diverticulosis, Ulcer, Irritable Bowel Musculoskeletal: Yes (ARTHRITIS; RESTLESS LEG SYNDROME) Arthritis Endocrine: Yes Diabetes, Non-Insulin dep HEENT: Yes Cataract Loss of Vision: Bilateral Hearing Impairment: Hard of Hearing, Bilateral Hearing Aide Cancer: Yes Prostate Did You Recieve Any Treatments: Yes What Type of Treatment Did You: Surgical Intervention Psychosocial: No Integumentary: No Blood Disorders: No Adverse Reaction/Blood Tranf: No (HAS HAD BLOOD WITH NO REACTION) Family Medical History No Pertinent Family Hx Physical Exam Vital Signs Vital Signs - First Documented 01/07/18 12:35 Temp 97.9 Pulse 75 B/P (MAP) 132/82 (99) Pulse Ox 18 O2 Delivery Room Air Capillary Refill : Height, Weight, BMI Height: 5'9.00" Weight: 135lbs. 0oz. [id number]; 20.2 BMI Method:Stated General Appearance: No Apparent Distress, WD/WN, Anxious Eyes: Bilateral Eye Normal Inspection, Bilateral Eye PERRL HEENT: PERRL/EOMI, TMs Normal Neck: Full Range of Motion, Normal Inspection Respiratory: Lungs Clear, Normal Breath Sounds, No Accessory Muscle Use, No Respiratory Distress Cardiovascular: Regular Rate, Rhythm, Normal Peripheral Pulses Gastrointestinal: Normal Bowel Sounds, Non Tender, Soft Extremity: Normal Capillary Refill, Normal Inspection Neurologic/Psychiatric: Alert, Oriented x3, No Motor/Sensory Deficits Skin: Normal Color, Warm/Dry Progress/Results/Core Measures Suspected Sepsis SIRS Temperature: Pulse: Respiratory Rate: Blood Pressure / Mean: Results/Orders My Orders Orders - LUCAS CALLES APRN Chest Pa/Lat (2 View) (01/07/18 12:50) Abdomen, Flat & Upright/Decub (01/07/18 12:50) Alprazolam Tablet (Xanax Tablet) (01/07/18 13:00) Medications Given in ED Current Medications Medications Dose Ordered Sig/Niall Route Start Time Stop Time Status Last Admin Dose Admin Alprazolam 0.25 mg ONCE ONCE PO 01/07/18 13:00 01/07/18 13:01 DC 01/07/18 12:58 0.25 MG Vital Signs/I&O 01/07/18 12:35 Temp 97.9 Pulse 75 B/P (MAP) 132/82 (99) Pulse Ox 18 O2 Delivery Room Air Capillary Refill : Departure Impression Primary Impression: Anxiety Additional Impressions: Irregular bowel habits Cough Disposition: 01 HOME, SELF-CARE Condition: Stable Departure-Patient Inst. Decision time for Depature: 13:10 Referrals: DAYDAY JACQUES MD (PCP/Family) Primary Care Physician Patient Instructions: Anxiety, Adult (DC), Constipation in Adults Add. Discharge Instructions: 1. Continue all current medication as directed. Mix two capfuls of miralax in a bottle of gatorade and drink this over the course of an hour or two. You may repeat this process this evening if this doesnt result in a bowel movement. Return to ER for any concerns. ll discharge instructions reviewed with patient and/or family. Voiced understanding. Scripts Alprazolam (Xanax) 0.25 Mg Tablet 0.25 MG PO BID PRN for ANXIETY, #10 TAB Prov: LUCAS CALLES APRN 01/07/18 LUCAS CALLES APRN Jan 07, 2018 12:54
[2018-01-07] MEDS ORDERED: ALPRAZolam 0.25 MG (XANAX) TAB PO ONE (13:00)
--- OUTSIDE RECORDS SUMMARY | 2018-01-07 13:16 | XMS REPORT | Continuity of Care Document ---
Author Author [facility] Address Unknown Phone Unavailable Allergies Active Description Code Type Severity Reaction Onset Reported/Identified Relationship to Patient Clinical Status Yes Toradol Drug Allergy 03/28/2012 Yes Toradol Drug Allergy N/A N/A 03/28/2012 Yes butorphanol [id number] Drug Allergy Unknown N/A 08/22/2017 Yes ketorolac [id number] Drug Allergy Mild STATES CAUSES M 08/22/2017 [...] NOS 11/20/2010 Ot 414.01 CORONARY ATHEROSCLEROSIS OF [place] CORON 11/20/2010 Ot 414.8 CHR ISCHEMIC HRT [...] NOS 12/01/2011 Ot 414.01 CORONARY ATHEROSCLEROSIS OF [place] CORON 12/01/2011 Ot 564.00 UNSPEC CONSTIPATION 12/01/2011 [...] OTHER GI SYSTEM SYMPTOMS 10/17/2014 RAMA PAGAN LOCKSTITCH HEMMER Ot 789.00 10/29/2014 RAMA PAGAN LOCKSTITCH HEMMER Ot 789.00 12/20/2014 IRISH GRIMES, HARPAL Valdez [...] NOS 01/26/2016 Ot 414.01 CORONARY ATHEROSCLEROSIS OF [place] CORON 01/26/2016 Ot 443.9 PERIPH VASCULAR DIS [...] Ot 440.9 ATHEROSCLEROSIS NOS 01/26/2016 RAMA PAGAN LOCKSTITCH HEMMER Ot 786.2 COUGH 01/26/2016 RAMA PAGAN LOCKSTITCH HEMMER Ot 789.00 ABDOMINAL PAIN, UNSPECIFIED SITE 01/26/2016 [...] MAY Ot I25.10 ATHSCL HEART DISEASE OF [place] CORONARY 04/12/2016 ALYSA ARCHIBALD MD, Ot M70.21 OLECRANON BURSITIS, RIGHT ELBOW 04/12/2016 ALYSA ARCHIBALD MD, Ot Z01.818 ENCOUNTER FOR OTHER PREPROCEDURAL EXAMIN 04/12/2016 ALYSA ARCHIBALD MD, Ot Z11.2 ENCOUNTER FOR SCREENING FOR OTHER BACTER 04/13/2016 GALE MAY Ot E78.4 OTHER HYPERLIPIDEMIA 04/13/2016 GALE MAY Ot I25.10 ATHSCL HEART DISEASE OF [place] CORONARY 04/14/2016 ALYSA ARCHIBALD MD, Ot E78.5 HYPERLIPIDEMIA, UNSPECIFIED 04/14/2016 ALYSA ARCHIBALD MD Ot F41.9 ANXIETY DISORDER, UNSPECIFIED 04/14/2016 ALYSA ARCHIBALD MD Ot I10 ESSENTIAL (PRIMARY) HYPERTENSION 04/14/2016 ALYSA ARCHIBALD MD Ot I25.10 ATHSCL HEART DISEASE OF [place] CORONARY 04/14/2016 ALYSA ARCHIBALD MD Ot 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 04/14/2016 ALYSA ARCHIBALD MD, Ot K57.90 DVRTCLOS OF INTEST, PART UNSP, W/O PERF 04/14/2016 ALYSA ARCHIBALD MD Ot M19.90 UNSPECIFIED OSTEOARTHRITIS, UNSPECIFIED 04/14/2016 ALYSA ARCHIBALD MD, Ot M70.21 OLECRANON BURSITIS, RIGHT ELBOW 04/14/2016 ALYSA ARCHIBALD MD, Ot Z79.899 OTHER MOBILITY DEVELOPER (CURRENT) DRUG THERAPY 04/14/2016 ALYSA ARCHIBALD MD, Ot Z86.73 PRSNL HX OF TIA (TIA), AND CEREB INFRC W 04/15/2016 ALYSA ARCHIBALD MD Ot E78.5 HYPERLIPIDEMIA, UNSPECIFIED 04/15/2016 ALYSA ARCHIBALD MD Ot F41.9 ANXIETY DISORDER, UNSPECIFIED 04/15/2016 ALYSA ARCHIBALD MD Ot I10 ESSENTIAL (PRIMARY) HYPERTENSION 04/15/2016 ALYSA ARCHIBALD MD, Ot I25.10 ATHSCL HEART DISEASE OF [place] CORONARY 04/15/2016 ALSYA ARCHIBALD MD, Ot 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 04/15/2016 ALYSA ARCHIBALD MD, Ot K57.90 DVRTCLOS OF INTEST, PART UNSP, W/O PERF 04/15/2016 ALYSA ARCHIBALD MD, Ot M19.90 UNSPECIFIED OSTEOARTHRITIS, UNSPECIFIED 04/15/2016 ALYSA ARCHIBALD MD, Ot M70.21 OLECRANON BURSITIS, RIGHT ELBOW 04/15/2016 ALYSA ARCHIBALD MD, Ot Z79.899 OTHER MOBILITY DEVELOPER (CURRENT) DRUG THERAPY 04/15/2016 ALYSA ARCHIBALD MD, Ot Z86.73 PRSNL HX OF TIA (TIA), AND CEREB INFRC W 04/18/2016 ALYSA ARCHIBALD MD, Ot M70.21 OLECRANON BURSITIS, RIGHT ELBOW 04/18/2016 ALYSA ARCHIBALD MD, Ot Z01.818 ENCOUNTER FOR OTHER PREPROCEDURAL EXAMIN 04/18/2016 ALYSA ARCHIBALD MD, Ot Z11.2 ENCOUNTER FOR SCREENING FOR OTHER BACTER 04/21/2016 GALE MAY LOCKSTITCH HEMMER Ot E78.4 OTHER HYPERLIPIDEMIA 04/21/2016 GALE MAY LOCKSTITCH HEMMER Ot I25.10 ATHSCL HEART DISEASE OF [place] CORONARY 11/08/2016 LUCAS CALLES APRN Ot B30.9 [...] CONGESTION 11/08/2016 LUCAS CALLES APRN Ot Z79.82 MOBILITY DEVELOPER (CURRENT) USE OF ASPIRIN 11/08/2016 LUCAS CALLES [...] CONGESTION 11/10/2016 LUCAS CALLES APRN Ot Z79.82 CORRECTION (CURRENT) USE OF ASPIRIN 11/10/2016 LUCAS CALLES APRN Ot Z86.73 PRSNL HX OF TIA (TIA), AND CEREB INFRC W 11/10/2016 LUCAS CALLES APRN Ot Z95.5 PRESENCE OF CORONARY ANGIOPLASTY IMPLANT 11/12/2016 NATALYA MORAN METAL DRILLING MACHINE OPERATOR Ot R05 COUGH 12/03/2016 NATALYA MORAN METAL DRILLING MACHINE OPERATOR Ot R05 COUGH 12/10/2016 NATALYA MORAN METAL DRILLING MACHINE OPERATOR Ot R05 COUGH 12/31/2016 DAYDAY JACQUES [...] MD Ot I25.10 ATHSCL HEART DISEASE OF [place] CORONARY 03/09/2017 SEJAL WILSON MD Ot M19.90 UNSPECIFIED OSTEOARTHRITIS, UNSPECIFIED 03/09/2017 SEJAL WILSON MD Ot N40.0 BENIGN PROSTATIC HYPERPLASIA WITHOUT LOW 03/09/2017 SEJAL WILSON MD Ot S01.512A LACERATION WITHOUT FOREIGN BODY OF ORAL 03/09/2017 SEJAL WILSON MD Ot X58.XXXA EXPOSURE TO OTHER SPECIFIED FACTORS, INI 03/09/2017 SEJAL WILSON MD Ot Z23 ENCOUNTER FOR IMMUNIZATION 03/09/2017 SEJAL WILSON MD Ot Z79.02 MOBILITY DEVELOPER (CURRENT) USE OF ANTITHROMBOTI 03/09/2017 SEJAL WILSON MD Ot Z79.82 CORRECTION (CURRENT) USE OF ASPIRIN 03/09/2017 SEJAL WILSON [...] MD Ot I25.10 ATHSCL HEART DISEASE OF [place] CORONARY 03/15/2017 SEJAL WILSON MD Ot M19.90 UNSPECIFIED OSTEOARTHRITIS, UNSPECIFIED 03/15/2017 SEJAL WILSON MD Ot N40.0 BENIGN PROSTATIC HYPERPLASIA WITHOUT LOW 03/15/2017 SEJAL WILSON MD Ot S01.512A LACERATION WITHOUT FOREIGN BODY OF ORAL 03/15/2017 SEJAL WILSON MD Ot X58.XXXA EXPOSURE TO OTHER SPECIFIED FACTORS, INI 03/15/2017 SEJAL WILSON MD Ot Z79.02 MOBILITY DEVELOPER (CURRENT) USE OF ANTITHROMBOTI 03/15/2017 SEJAL WILSON MD Ot Z79.82 CORRECTION (CURRENT) USE OF ASPIRIN 03/15/2017 SEJAL WILSON MD Ot Z90.89 ACQUIRED ABSENCE OF OTHER ORGANS 03/15/2017 SEJAL WILSON MD Ot Z95.5 PRESENCE OF CORONARY ANGIOPLASTY IMPLANT 03/25/2017 ANJALI GRIMES FACC, ALI FACP CCDS Ot E78.4 OTHER HYPERLIPIDEMIA 03/25/2017 ANJALI GRIMES FAC, ALI FACP CCDS Ot I25.10 ATHSCL HEART DISEASE OF [place] CORONARY 03/25/2017 ANJALI GRIMES FACC, ALI FACP [...] CCDS Ot I25.10 ATHSCL HEART DISEASE OF [place] CORONARY 04/01/2017 ANJALI GRIMES FAC, ALI FACP CCDS Ot 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 04/01/2017 ANJALI GRIMES MERGED WITH [facility], ALI FACP CCDS Ot R00.1 BRADYCARDIA, UNSPECIFIED 04/01/2017 ANJALI GRIMES MERGED WITH [facility], ALI FACP CCDS Ot Z86.79 PERSONAL HISTORY [...] K Ot I25.10 ATHSCL HEART DISEASE OF [place] CORONARY 06/25/2017 JOANIE DO ZAYDA K Ot 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 06/25/2017 JOANIE DO, ZAYDA K Ot K59.00 CONSTIPATION, UNSPECIFIED 06/25/2017 JOANIE DO, ZAYDA K Ot N40.1 BENIGN PROSTATIC HYPERPLASIA WITH LOWER 06/25/2017 JOANIE DO, ZAYDA K Ot R07.9 CHEST PAIN, UNSPECIFIED 06/25/2017 JOANIE DO ZAYDA K Ot Z79.82 CORRECTION (CURRENT) USE OF ASPIRIN 06/25/2017 GIRMA NAIR [...] K Ot I25.10 ATHSCL HEART DISEASE OF [place] CORONARY 06/26/2017 JOANIE MEDEIROS ZAYDA K Ot 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 06/26/2017 JOANIE MEDEIROS ZAYDA K Ot K59.00 CONSTIPATION, UNSPECIFIED 06/26/2017 JOANIE ZAYDA K Ot Z79.82 CORRECTION (CURRENT) USE OF ASPIRIN 06/26/2017 JOANIE MEDEIROS [...] DO Ot I25.10 ATHSCL HEART DISEASE OF [place] CORONARY 06/28/2017 ZAYDA NAIR DO Ot 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 06/28/2017 ZAYDA NAIR DO Ot K59.00 CONSTIPATION, UNSPECIFIED 06/28/2017 ZAYDA NAIR DO Ot Z79.82 MOBILITY DEVELOPER (CURRENT) USE OF ASPIRIN 06/28/2017 ZAYDA NAIR [...] OF CORONARY ANGIOPLASTY IMPLANT 07/03/2017 NATALYA MORAN METAL DRILLING MACHINE OPERATOR Ot K59.00 CONSTIPATION, UNSPECIFIED 07/12/2017 NATALYA MORAN METAL DRILLING MACHINE OPERATOR Ot R10.9 UNSPECIFIED ABDOMINAL PAIN 07/16/2017 [...] Ot 440.9 ATHEROSCLEROSIS NOS 07/16/2017 RAMA PAGAN LOCKSTITCH HEMMER Ot 786.2 COUGH 07/16/2017 RAMA PAGAN LOCKSTITCH HEMMER Ot 789.00 ABDOMINAL PAIN, UNSPECIFIED SITE 07/16/2017 HUGO GRIMES, OLIVER Sutton Ot V72.84 EXAM PRE-OPERATIVE NOS 07/16/2017 HARPAL COBURN MD Ot 600.00 HYPERTROPHY (BENIGN) OF PROSTATE W/O URI 07/16/2017 HARPAL COBURN MD Ot V72.63 PRE-PROCEDURAL LABORATORY EXAMINATION 07/16/2017 HARPAL COBURN MD Ot V74.8 SCREEN-BACTERIAL DIS NEC 07/16/2017 GEORGIE GRIMES, DAYDAY Valdez Ot E86.0 DEHYDRATION 07/16/2017 GALE MAY LOCKSTITCH HEMMER Ot E78.4 OTHER HYPERLIPIDEMIA 07/16/2017 GALE MAY LOCKSTITCH HEMMER Ot I25.10 ATHSCL HEART DISEASE OF [place] CORONARY 07/16/2017 NATALYA MORAN METAL DRILLING MACHINE OPERATOR Ot R05 COUGH 07/16/2017 DAYDAY JACQUES MD Ot R09.82 POSTNASAL DRIP 07/16/2017 DAYDAY JACQUES MD Ot R93.8 ABNORMAL FINDINGS ON DIAGNOSTIC IMAGING 07/16/2017 ANJALI GRIMES FACC, ALI FACP CCDS Ot E78.4 OTHER HYPERLIPIDEMIA 07/16/2017 ANJALI GRIMES FACC, ALI FACP CCDS Ot I25.10 ATHSCL HEART DISEASE OF [place] CORONARY 07/16/2017 ANJALI GRIMES FACC, ALI FACP CCDS Ot 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 07/16/2017 ANJALI GRIMES FACC, ALI FACP CCDS Ot R00.1 BRADYCARDIA, UNSPECIFIED 07/16/2017 ANJALI GRIMES FACC, ALI FACP CCDS Ot Z86.79 PERSONAL HISTORY OF OTHER DISEASES OF TH 07/16/2017 HARPAL COBURN MD Ot C61 MALIGNANT NEOPLASM OF PROSTATE 07/16/2017 NATALYA MORAN METAL DRILLING MACHINE OPERATOR Ot K59.00 CONSTIPATION, UNSPECIFIED 07/16/2017 NATALYA MORAN METAL DRILLING MACHINE OPERATOR Ot R10.9 UNSPECIFIED ABDOMINAL PAIN 07/19/2017 NATALYA MORAN METAL DRILLING MACHINE OPERATOR Ot R10.9 UNSPECIFIED ABDOMINAL PAIN 07/29/2017 NATALYA MORAN METAL DRILLING MACHINE OPERATOR Ot K59.00 CONSTIPATION, UNSPECIFIED 08/01/2017 NATALYA MORAN METAL DRILLING MACHINE OPERATOR Ot K59.00 CONSTIPATION, UNSPECIFIED 08/02/2017 NATALYA MORAN METAL DRILLING MACHINE OPERATOR Ot R10.9 UNSPECIFIED ABDOMINAL PAIN 08/09/2017 NATALYA MORAN METAL DRILLING MACHINE OPERATOR Ot R10.9 UNSPECIFIED ABDOMINAL PAIN 08/09/2017 NATALYA MORAN METAL DRILLING MACHINE OPERATOR Ot R10.9 UNSPECIFIED ABDOMINAL PAIN 08/11/2017 NATALYA MORAN METAL DRILLING MACHINE OPERATOR Ot R10.9 UNSPECIFIED ABDOMINAL PAIN 08/12/2017 [...] Ot 440.9 ATHEROSCLEROSIS NOS 08/17/2017 RAMA PAGAN LOCKSTITCH HEMMER Ot 786.2 COUGH 08/17/2017 RAMA PAGAN LOCKSTITCH HEMMER Ot 789.00 ABDOMINAL PAIN, UNSPECIFIED SITE 08/17/2017 HUGO GRIMES, OLIVER Sutton Ot V72.84 EXAM PRE-OPERATIVE NOS 08/17/2017 IRISH GRIMES, HARPAL Valdez Ot 600.00 HYPERTROPHY (BENIGN) OF PROSTATE W/O URI 08/17/2017 HARPAL COBURN MD Ot V72.63 PRE-PROCEDURAL LABORATORY EXAMINATION 08/17/2017 HARPAL COBURN MD Ot V74.8 SCREEN-BACTERIAL DIS NEC 08/17/2017 DAYDAY JACQUES MD Ot E86.0 DEHYDRATION 08/17/2017 GALE MAY LOCKSTITCH HEMMER Ot E78.4 OTHER HYPERLIPIDEMIA 08/17/2017 GALE MAY LOCKSTITCH HEMMER Ot I25.10 ATHSCL HEART DISEASE OF [place] CORONARY 08/17/2017 NATALYA MORAN METAL DRILLING MACHINE OPERATOR Ot R05 COUGH 08/17/2017 DAYDAY JACQUES MD Ot R09.82 POSTNASAL DRIP 08/17/2017 DAYDAY JACQUES MD Ot R93.8 ABNORMAL FINDINGS ON DIAGNOSTIC IMAGING 08/17/2017 ANJALI GRIMES FACC, ALI FACP CCDS Ot E78.4 OTHER HYPERLIPIDEMIA 08/17/2017 ANJALI GRIMES FACC, ALI FACP CCDS Ot I25.10 ATHSCL HEART DISEASE OF [place] CORONARY 08/17/2017 ANJALI GRIMES MERGED WITH [facility], ALI FACP CCDS Ot 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 08/17/2017 ANJALI GRIMES MERGED WITH [facility], ALI FACP CCDS Ot R00.1 BRADYCARDIA, UNSPECIFIED 08/17/2017 ANJALI GRIMES MERGED WITH [facility], ALI FACP CCDS Ot Z86.79 PERSONAL HISTORY OF OTHER DISEASES OF TH 08/17/2017 IRISH GRIMES, HARPAL Valdez Ot C61 MALIGNANT NEOPLASM OF PROSTATE 08/17/2017 NATALYA MORAN METAL DRILLING MACHINE OPERATOR Ot K59.00 CONSTIPATION, UNSPECIFIED 08/17/2017 NATALYA MORAN METAL DRILLING MACHINE OPERATOR Ot R10.9 UNSPECIFIED ABDOMINAL PAIN 08/17/2017 NATALYA MORAN METAL DRILLING MACHINE OPERATOR Ot R10.9 UNSPECIFIED ABDOMINAL PAIN 08/17/2017 [...] MD Ot I25.10 ATHSCL HEART DISEASE OF [place] CORONARY 08/29/2017 OLIVER ARIAS MD Ot K44.9 DIAPHRAGMATIC HERNIA WITHOUT OBSTRUCTION 08/29/2017 OLIVER ARIAS MD Ot K57.30 DVRTCLOS OF LG INT W/O PERFORATION OR AB 08/29/2017 OLIVER ARIAS MD Ot 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 08/29/2017 OLIVER ARIAS MD Ot R19.4 CHANGE IN BOWEL HABIT 08/29/2017 OLIVER ARIAS MD Ot R63.5 ABNORMAL WEIGHT GAIN 08/29/2017 OLIVER ARIAS MD Ot Z79.82 MOBILITY DEVELOPER (CURRENT) USE OF ASPIRIN 08/30/2017 OLIVER ARIAS MD Ot E03.9 HYPOTHYROIDISM, UNSPECIFIED 08/30/2017 OLIVER ARIAS MD Ot E78.5 HYPERLIPIDEMIA, UNSPECIFIED 08/30/2017 OLIVER ARIAS MD Ot I25.10 ATHSCL HEART DISEASE OF [place] CORONARY 08/30/2017 OLIVER ARIAS MD Ot K44.9 DIAPHRAGMATIC HERNIA WITHOUT OBSTRUCTION 08/30/2017 OLIVER ARIAS MD Ot K57.30 DVRTCLOS OF LG INT W/O PERFORATION OR AB 08/30/2017 OLIVER ARIAS MD Ot 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 08/30/2017 OLIVER ARIAS MD Ot R19.4 CHANGE IN BOWEL HABIT 08/30/2017 OLIVER ARIAS MD Ot R63.5 ABNORMAL WEIGHT GAIN 08/30/2017 OLIVER ARIAS MD, Ot Z79.82 CORRECTION (CURRENT) USE OF ASPIRIN 09/01/2017 OLIVER ARIAS MD Ot 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 09/07/2017 OLIVER ARIAS MD Ot 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 09/09/2017 OLIVER ARIAS MD Ot E03.9 HYPOTHYROIDISM, UNSPECIFIED 09/09/2017 OLIVER ARIAS MD Ot E78.5 HYPERLIPIDEMIA, UNSPECIFIED 09/09/2017 OLIVER ARIAS MD Ot I25.10 ATHSCL HEART DISEASE OF [place] CORONARY 09/09/2017 OLIVER ARIAS MD Ot K44.9 DIAPHRAGMATIC HERNIA WITHOUT OBSTRUCTION 09/09/2017 OLIVER ARIAS MD Ot K57.30 DVRTCLOS OF LG INT W/O PERFORATION OR AB 09/09/2017 OLIVER ARIAS MD Ot 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 09/09/2017 OLIVER ARIAS MD Ot R19.4 CHANGE IN BOWEL HABIT 09/09/2017 OLIVER ARIAS MD Ot R63.5 ABNORMAL WEIGHT GAIN 09/09/2017 OLIVER ARIAS MD Ot Z79.82 CORRECTION (CURRENT) USE OF ASPIRIN 09/10/2017 LUIS ENRIQUE GRIMES, AQUILINO Tse Ot E11.9 TYPE 2 DIABETES MELLITUS WITHOUT COMPLIC 09/10/2017 AQUILINO DUDLEY MD Ot E78.00 PURE HYPERCHOLESTEROLEMIA, UNSPECIFIED 09/10/2017 AQUILINO DUDLEY MD Ot E86.0 DEHYDRATION 09/10/2017 AQUILINO DUDLEY MD Ot I10 ESSENTIAL (PRIMARY) HYPERTENSION 09/10/2017 AQUILINO DUDLEY MD Ot I25.10 ATHSCL HEART DISEASE OF [place] CORONARY 09/10/2017 AQUILINO DUDLEY MD Ot 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 09/10/2017 AQUILINO DUDLEY MD Ot R53.1 WEAKNESS 09/10/2017 AQUILINO DUDLEY MD Ot Z79.82 MOBILITY DEVELOPER (CURRENT) USE OF ASPIRIN 09/10/2017 AQUILINO DUDLEY [...] MD Ot I25.10 ATHSCL HEART DISEASE OF [place] CORONARY 09/12/2017 AQUILINO DUDLEY MD Ot 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 09/12/2017 AQUILINO DUDLEY MD, Ot R53.1 WEAKNESS 09/12/2017 AQUILINO DDULEY MD, Ot Z79.82 MOBILITY DEVELOPER (CURRENT) USE OF ASPIRIN 09/12/2017 AQUILINO DUDLEY [...] CHEN Ot I25.10 ATHSCL HEART DISEASE OF [place] CORONARY 09/24/2017 SHU CHEN Ot 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 09/24/2017 SHU CHEN Ot K31.84 GASTROPARESIS 09/24/2017 SHU CHEN Ot R10.9 UNSPECIFIED ABDOMINAL PAIN 09/24/2017 SHU CHEN Ot Z79.02 MOBILITY DEVELOPER (CURRENT) USE OF ANTITHROMBOTI 09/24/2017 SHU CHEN Ot Z79.82 CORRECTION (CURRENT) USE OF ASPIRIN 09/24/2017 SHU CHEN [...] CHEN Ot I25.10 ATHSCL HEART DISEASE OF [place] CORONARY 09/26/2017 SHU CHEN Ot 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 09/26/2017 SHU CHEN Ot K31.84 GASTROPARESIS 09/26/2017 SHU CHEN Ot R10.9 UNSPECIFIED ABDOMINAL PAIN 09/26/2017 SHU CHEN Ot Z79.02 MOBILITY DEVELOPER (CURRENT) USE OF ANTITHROMBOTI 09/26/2017 SHU CHEN Ot Z79.82 MOBILITY DEVELOPER (CURRENT) USE OF ASPIRIN 09/26/2017 SHU CHEN [...] APRN Ot I25.10 ATHSCL HEART DISEASE OF [place] CORONARY 10/22/2017 LUCAS CALLES APRN Ot K21.9 [...] APRN Ot I25.10 ATHSCL HEART DISEASE OF [place] CORONARY 10/24/2017 LUCAS CALLES APRN Ot K21.9 [...] Ot I10 ESSENTIAL (PRIMARY) HYPERTENSION 10/28/2017 LUCAS CALLES APRN Ot I25.10 ATHSCL HEART DISEASE OF [place] CORONARY 10/28/2017 LUCAS CALLES APRN Ot K21.9 [...] Ot Z95.5 PRESENCE OF CORONARY ANGIOPLASTY IMPLANT 12/03/2017 LUCAS CALLES APRN Ot E78.00 PURE HYPERCHOLESTEROLEMIA, UNSPECIFIED 12/03/2017 LUCAS CALLES APRN Ot F03.90 UNSPECIFIED DEMENTIA 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L 12/03/2017 LUCAS CALLES APRN Ot I10 ESSENTIAL (PRIMARY) HYPERTENSION 12/03/2017 LUCAS CALLES APRN Ot I25.10 ATHSCL HEART DISEASE OF [place] CORONARY 12/03/2017 LUCAS CALLES APRN Ot 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 12/03/2017 LUCAS CALLES APRN Ot R10.13 EPIGASTRIC PAIN 12/03/2017 LUCAS CALLES APRN Ot Z79.02 MOBILITY DEVELOPER (CURRENT) USE OF ANTITHROMBOTI 12/03/2017 LUCAS CALLES APRN Ot Z79.82 MOBILITY DEVELOPER (CURRENT) USE OF ASPIRIN 12/03/2017 LUCAS CALLES APRN Ot Z79.84 MOBILITY DEVELOPER (CURRENT) USE OF ORAL HYPOGLYC 12/03/2017 LUCAS CALLES APRN Ot Z85.46 PERSONAL HISTORY OF MALIGNANT NEOPLASM O 12/03/2017 LUCAS CALLES APRN Ot Z86.73 PRSNL HX OF TIA (TIA), AND CEREB INFRC W 12/03/2017 LUCAS CALLES APRN Ot Z87.19 PERSONAL HISTORY OF OTHER DISEASES OF TH 12/03/2017 LUCAS CALLES APRN Ot Z88.4 ALLERGY STATUS TO ANESTHETIC AGENT STATU 12/03/2017 LUCAS CALLES APRN Ot Z88.8 ALLERGY STATUS TO OTH DRUG/MEDS/BIOL SUB 12/03/2017 LUCAS CALLES APRN Ot Z90.89 ACQUIRED ABSENCE OF OTHER ORGANS 12/03/2017 LUCAS CALLES APRN Ot Z95.5 PRESENCE OF CORONARY ANGIOPLASTY IMPLANT 12/05/2017 LUCAS CALLES APRN Ot E78.00 PURE HYPERCHOLESTEROLEMIA, UNSPECIFIED 12/05/2017 LUCAS CALLES APRN Ot F03.90 UNSPECIFIED DEMENTIA 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L 12/05/2017 LUCAS CALLES APRN Ot I10 ESSENTIAL (PRIMARY) HYPERTENSION 12/05/2017 LUCAS CALLES APRN Ot I25.10 ATHSCL HEART DISEASE OF [place] CORONARY 12/05/2017 LUCAS CALLES APRN Ot 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 12/05/2017 LUCAS CALLES APRN Ot R10.13 EPIGASTRIC PAIN 12/05/2017 LUCAS CALLES APRN Ot Z79.02 CORRECTION (CURRENT) USE OF ANTITHROMBOTI 12/05/2017 LUCAS CALLES APRN Ot Z79.82 MOBILITY DEVELOPER (CURRENT) USE OF ASPIRIN 12/05/2017 LUCAS CALLES APRN Ot Z79.84 CORRECTION (CURRENT) USE OF ORAL HYPOGLYC 12/05/2017 LUCAS CALLES APRN Ot Z85.46 PERSONAL HISTORY OF MALIGNANT NEOPLASM O 12/05/2017 ULCAS CALLES APRN Ot Z86.73 PRSNL HX OF [...] 11/30/2011 37.22 11/30/2011 88.53 11/30/2011 88.56 11/30/2011 [id number] PSYCH PHARM MGMT 03/29/2012 Results Test Result [...] rate by westergren method 16 mm 0-30 [id number] - 05/12/17 13:06 Serum or plasma urea [...] by light microscopy FEW RANDA PHOSPHATE NRG Bacterial throat culture - 12/28/17 16:31 Bacterial throat culture NBS NRG Encounters ACCT No. Visit Date/Time Discharge Status Pt. Type Provider Facility Loc./Unit Complaint [id number] 06/28/2011 13:11:00 06/28/2011 23:59:59 [facility] Outpatient ORACIO JACKSON DO [id number] 10/25/2012 14:58:00 Document Registration [id number] 03/28/2012 14:47:00 Document Registration [id number] 12/26/2017 14:19:00 12/26/2017 16:00:00 DIS Emergency YANETH SEPULVEDA MD [facility] ER SOB [id number] 12/03/2017 10:28:00 12/03/2017 12:32:00 DIS Emergency LUCAS CALLSE METAL DRILLING MACHINE OPERATOR [facility] ER ABD PAIN [id number] 10/22/2017 10:39:00 10/22/2017 13:41:00 DIS Emergency LUCAS CALLES METAL DRILLING MACHINE OPERATOR [facility] ER STOMACH PAIN [id number] 09/08/2017 12:57:00 10/06/2017 11:28:00 DIS Outpatient DAYDAY JACQUES MD [facility] REHAB UPPER AND LOWER BACK PAIN; L ARM PAIN [id number] 09/24/2017 19:08:00 09/24/2017 22:26:00 DIS Emergency SHU CHEN [facility] ER ABDOMINAL PROBLEMS [id number] 09/10/2017 13:47:00 09/10/2017 18:08:00 DIS Emergency LUIS ENRIQUE GRIMES, AQUILINO Tse [facility] ER WEAKNESS/ALMOST PASSED OUT [id number] 08/29/2017 08:15:00 08/29/2017 11:30:00 DIS Outpatient OLIVER ARIAS MD [facility] ENDO WT LOSS/IRREG BM [id number] 08/22/2017 05:39:00 08/22/2017 10:10:00 DIS Outpatient OLIVER ARIAS MD [facility] PREOP COLONOSCOPY/EGD [id number] 08/11/2017 13:07:00 08/11/2017 23:59:59 CLS Outpatient OLIVER ARIAS MD [facility] RAD CHRONIC MESENTERIC ISCHEMIA [id number] 07/18/2017 07:47:00 07/18/2017 23:59:59 CLS Outpatient NATALYA MORAN METAL 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 ONGOING ABD PAIN [id number] 07/11/2017 07:30:00 07/11/2017 23:59:59 CLS Outpatient NATALYA MORAN METAL 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 ABD PAIN [id number] 07/06/2017 11:30:00 07/06/2017 23:59:59 CLS Preadmit DAYDAY JACQUES MD [facility] REHAB UPPER AND LOWER BACK PAIN; L ARM PAIN [id number] 07/01/2017 10:58:00 07/01/2017 23:59:59 CLS Outpatient NATALYA MORAN METAL 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 R10.9 [id number] 06/26/2017 01:53:00 06/26/2017 05:02:00 DIS Emergency JOANIE DOZAYDA [facility] ER CONSTIPATION [id number] 06/25/2017 04:09:00 06/25/2017 08:07:00 DIS Emergency JOANIE DOZAYDA [facility] ER PAIN [id number] 05/12/2017 11:53:00 05/12/2017 23:59:59 CLS Outpatient HARPAL COBURN MD [facility] RAD PROSTATE CANCER [id number] 03/09/2017 19:36:00 03/09/2017 23:59:59 CLS Emergency SEJAL WILSON MD [facility] ER TONGUE BLEEDING [id number] 03/03/2017 10:37:00 03/03/2017 23:59:59 CLS Outpatient ANJALI GRIMES FACCWILNER FACP CCDS [facility] CARD CAD [id number] 12/01/2016 15:48:00 12/01/2016 23:59:59 CLS Outpatient DAYDAY JACQUES MD [facility] RAD SINUS CONGESTION, ETHMOID SINUS INFLAMMATION [id number] 11/11/2016 14:51:00 11/11/2016 23:59:59 CLS Outpatient NATALYA MORAN APRN [facility] RAD COUGH [id number] 11/08/2016 10:44:00 11/08/2016 12:36:00 DIS Emergency LUCAS CALLES APRN [facility] ER BLURRED VISION/CONGESTION [id number] 04/14/2016 06:55:00 04/14/2016 13:15:00 DIS Outpatient ALYSA ARCHIBALD MD [facility] RIGHT ELBOW BURSITIS [id number] 04/12/2016 10:07:00 04/12/2016 10:35:00 DIS Outpatient ALYSA ARCHIBALD MD [facility] PREOP RIGHT ELBOW BURSITIS [id number] 03/23/2016 07:31:00 03/23/2016 23:59:59 CLS Outpatient GALE MAY [facility] CARD CAD,HYPERLIPIDEMIA [id number] 01/26/2016 14:36:00 01/26/2016 23:59:59 CLS Outpatient DAYDAY JACQUES MD [facility] DEHYDRATION [id number] 12/24/2014 06:27:00 12/26/2014 16:08:00 DIS Outpatient HARPAL COBURN MD [facility] BPH [id number] 12/19/2014 12:47:00 12/19/2014 23:59:59 CLS Outpatient HARPAL COBURN MD [facility] PREOP BPH [id number] 10/09/2014 13:53:00 10/09/2014 16:23:00 DIS Outpatient OLIVER ARIAS MD [facility] SDC ABD. PAIN; CHANGE IN BOWEL HABITS [id number] 10/03/2014 05:50:00 10/03/2014 23:59:59 CLS Outpatient OLIVER ARIAS MD [facility] PREOP ABD. PAIN; CHANGE IN BOWEL HABITS [id number] 10/02/2014 13:11:00 10/02/2014 20:10:00 DIS Outpatient DAYDAY JACQUES MD [facility] SURG RCR ABD PAIN [id number] 09/25/2014 08:00:00 09/25/2014 23:59:59 CLS Outpatient RAMA PAGAN [facility] RAD ABDOMINAL PAIN [id number] 08/31/2014 16:41:00 08/31/2014 20:26:00 DIS Emergency ZAYDA NAIR DO [facility] ER HIGH BP [id number] 05/21/2014 13:39:00 05/21/2014 23:59:59 CLS Outpatient RAMA PAGAN [facility] RAD COUGH [id number] 05/18/2014 19:14:00 05/18/2014 21:07:00 DIS Emergency DERICK GRIMES, YANETH Avila [facility] ER SOA [id number] 02/11/2014 11:55:00 02/11/2014 23:59:59 CLS Outpatient ANJALI GRIMES FACC, WILNER HOLT CCDS [facility] CARD BRADYCARDIA, [id number] 10/13/2013 17:17:00 10/13/2013 23:59:59 CLS Outpatient KAREEM CISNEROS DO Via [facility] LAB COUGH [id number] 12/30/2017 18:17:00 Document Registration [id number] 12/13/2017 04:16:00 Document Registration [id number] 01/26/2016 14:36:00 Document Registration [id number] 12/09/2011 13:38:00 Document Registration [id number] 11/29/2011 11:26:00 Document Registration [id number] 2011 07:24:00 Document Registration [id number] 03/30/2011 00:00:00 Document Registration [id number] 02/18/2011 13:52:00 Document Registration [id number] 01/29/2011 13:47:00 Document Registration [id number] 01/24/2011 22:29:00 Document Registration [id number] 01/15/2011 17:14:00 Document Registration [id number] 01/13/2011 13:36:00 Document Registration [id number] 01/12/2011 07:38:00 Document Registration [id number] 12/31/2010 09:17:00 Document Registration [id number] 12/26/2010 20:32:00 Document Registration [id number] 11/18/2010 12:35:00 Document Registration [id number] 10/29/2010 13:56:00 Document Registration [id number] 12/24/2014 06:43:32 ACT Document Registration
--- NOTE | 2018-01-07 13:44 | Diagnostic Imaging Report ---
INDICATION: Shortness of air. COMPARISON: 12/26/2017. TECHNIQUE: 2 radiographs of the chest dated 01/07/2018. FINDINGS: The cardiac silhouette and pulmonary vasculature are within normal limits. The lungs are clear. No pleural effusion. No pneumothorax. 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 No acute osseous abnormality. IMPRESSION: Stable examination demonstrating significant curvature of the spine without acute cardiopulmonary abnormality. Dictated by: Dictated on workstation # [id number]
[2018-01-07] MEDS ORDERED: ALPR0.25 PO (14:02)
[2018-01-07 14:12] VITALS: BP 111/85
--- NOTE | 2018-01-07 14:50 | Diagnostic Imaging Report ---
INDICATION: Constipation. COMPARISON: 12/28/2017. TECHNIQUE: Two radiographs of the abdomen dated January 07, 2018. FINDINGS: Postsurgical changes of a ventral anterior hernia repair are again noted with multiple mesh tacks in place. Moderate amount of stool within the colon, including some stool within the rectal vault. There is a generalized paucity of small bowel gas. No dilated loops of small bowel. No differential air-fluid levels. No free air. No organomegaly or mass effect. 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 Scattered vascular calcifications. No acute osseous abnormality. IMPRESSION: 1. Moderate amount of stool throughout the colon, which may relate to constipation. 2. Nonspecific small bowel gas pattern with a generalized paucity of small bowel gas. 3. Additional postsurgical and chronic findings, as described above, including significant curvature of the spine. Dictated by: Dictated on workstation # [id number]
== END 2018-01-07 14:12 | disposition home or self-care (01) ==
LOC: EDUNIT# 12:33 → ER 12:33
DX: F41.9 Anxiety disorder, unspecified (principal); R19.4 Change in bowel habit; R05 Cough; R06.02 Shortness of breath; I25.10 Atherosclerotic heart disease of native coronary artery without angina pectoris; I10 Essential (primary) hypertension; E78.00 Pure hypercholesterolemia, unspecified; F03.90 Unspecified dementia, unspecified severity, without behavioral disturbance, psychotic disturbance, mood disturbance, and anxiety; G25.81 Restless legs syndrome; K21.9 Gastro-esophageal reflux disease without esophagitis; E11.9 Type 2 diabetes mellitus without complications; Z87.19 Personal history of other diseases of the digestive system; Z85.46 Personal history of malignant neoplasm of prostate; Z86.73 Personal history of transient ischemic attack (TIA), and cerebral infarction without residual deficits; Z88.4 Allergy status to anesthetic agent; Z88.8 Allergy status to other drugs, medicaments and biological substances; Z79.82 Long term (current) use of aspirin; Z79.02 Long term (current) use of antithrombotics/antiplatelets; Z79.51 Long term (current) use of inhaled steroids; Z79.84 Long term (current) use of oral hypoglycemic drugs; Z90.89 Acquired absence of other organs; Z95.5 Presence of coronary angioplasty implant and graft; Z98.890 Other specified postprocedural states
CPT/HCPCS: 71046; 74019

== ENCOUNTER 2018-01-10 12:53 | Outpatient (RCR) | payer MEDICARE ==
[~2018-01-10 12:53] MED LIST changes: +ALPR0.25 PO; +LEUPROLIDE 22.5 MG SYRIN(ELIGARD) SQ SCH
== END 2018-03-21 | disposition home or self-care (01) ==
LOC: ONC 12:53
PROVIDERS: ATTEND Internal Medicine Hematology & Oncology
DX: C61 Malignant neoplasm of prostate (principal); I25.10 Atherosclerotic heart disease of native coronary artery without angina pectoris; M19.91 Primary osteoarthritis, unspecified site; E78.5 Hyperlipidemia, unspecified; E03.9 Hypothyroidism, unspecified; Z86.73 Personal history of transient ischemic attack (TIA), and cerebral infarction without residual deficits; Z79.899 Other long term (current) drug therapy
CPT/HCPCS: 84153; 96402; 99204

== ENCOUNTER 2018-03-15 08:36 | Emergency (ER) | payer MEDICARE ==
[~2018-03-15] VITALS: Ht 175.3 cm; Wt 61.2 kg
[~2018-03-15 08:36] MED LIST changes: -LEUPROLIDE 22.5 MG SYRIN(ELIGARD) SQ SCH
[2018-03-15] MEDS ORDERED: NS IV 500 ML 500 ML IV ONE (08:59)
[2018-03-15 09:05] LABS: BASOPHILS % (AUTO) 0 % (0-10); EOSINOPHILS # (AUTO) 0.1 10^3/uL (0.0-0.3); EOSINOPHILS % (AUTO) 2 % (0-10); HEMATOCRIT 40 % (40-54); HEMOGLOBIN 13.4 G/DL (13.3-17.7); LYMPHOCYTES # (AUTO) 1.5 X 10^3 (1.0-4.0); LYMPHOCYTES % (AUTO) 33 % (12-44); MEAN CORPUSCULAR HEMOGLOBIN 32 PG (25-34); MEAN CORPUSCULAR HGB CONC 34 G/DL (32-36); MEAN CORPUSCULAR VOLUME 93 FL (80-99); MEAN PLATELET VOLUME 10.5 FL (7.4-10.4); MONOCYTES # (AUTO) 0.5 X 10^3 (0.0-1.0); MONOCYTES % (AUTO) 12 % (0-12); NEUTROPHILS # (AUTO) 2.5 X 10^3 (1.8-7.8); NEUTROPHILS % (AUTO) 54 % (42-75); PLATELET COUNT 179 10^3/uL (130-400); RED BLOOD COUNT 4.24 10^6/uL (4.35-5.85); RED CELL DISTRIBUTION WIDTH 14.2 % (10.0-14.5); WHITE BLOOD COUNT 4.6 10^3/uL (4.3-11.0)
[2018-03-15 09:17] LABS: ALANINE AMINOTRANSFERASE 18 U/L (0-55); ALKALINE PHOSPHATASE 104 U/L (40-136); BILIRUBIN,TOTAL 0.6 MG/DL (0.1-1.0); BUN/CREATININE RATIO 24; CALCIUM 10.1 MG/DL (8.5-10.1); CARBON DIOXIDE 26 MMOL/L (21-32); CHLORIDE 106 MMOL/L (98-107); CREATININE SERUM 1.05 MG/DL (0.60-1.30); GFR ESTIMATED > 60; GLUCOSE 119 MG/DL (70-105); MAGNESIUM 2.1 MG/DL (1.8-2.4); POTASSIUM 3.4 MMOL/L (3.6-5.0); SODIUM 142 MMOL/L (135-145); TOTAL PROTEIN 6.2 GM/DL (6.4-8.2)
--- NOTE | 2018-03-15 09:20 | ED General ---
General Chief Complaint: Dizziness/Syncope Stated Complaint: DIZZINESS Nursing Triage Note: TO ED PER EMS C/O BEING DIZZY. WHEN SITTING UP IN BED ON ADMIT TO REMOVE SHIRT REPORTS HE IS NOT DIZZY. Nursing Sepsis Screen: No Definite Risk Source of Information: Patient Exam Limitations: No Limitations History of Present Illness Date Seen by Provider: Mar 15, 2018 Time Seen by Provider: 09:00 Initial Comments Here by EMS with report of dizziness this morning. Apparently got up and was getting out of the bathroom when he became dizzy. Denies chest pain or breathing problems with that. It is not uncommon for him to have dizziness. It is better now. Timing/Duration: 1 Hour, Resolved Prior to Arrival, Intermittent Severity: Moderate Modifying Factors: improves with Rest Associated Systoms: No Chest Pain, No Fever/Chills, No Nausea/Vomiting, No Shortness of Air, No Weakness Allergies and Home Medications Allergies Coded Allergies: butorphanol (Verified Allergy, Unknown, 08/22/17) ketorolac (Verified Adverse Reaction, Mild, STATES CAUSES MORE PAIN, ) Home Medications Alprazolam 0.25 Mg Tablet, 0.25 MG PO BID PRN for ANXIETY Prescribed by: LUCAS CALLES on 01/07/18 1402 Amlodipine Besylate 10 Mg Tablet, 10 MG PO HS, (Reported) Aspirin 81 Mg Tablet.dr, 81 MG PO DAILY, (Reported) Calcium Polycarbophil 625 Mg Tablet, 625 MG PO DAILY, (Reported) Cefdinir 300 Mg Capsule, 300 MG PO BID Prescribed by: ZAYDA NAIR on 12/13/17 0704 Cetirizine HCl 10 Mg Tablet, 10 MG PO DAILY Prescribed by: JONN REID on 04/14/16 0821 Citalopram Hydrobromide 10 Mg Tablet, 10 MG PO DAILY, (Reported) Clopidogrel Bisulfate 75 Mg Tablet, 75 MG PO DAILY, (Reported) Donepezil HCl 10 Mg Tablet, 10 MG PO HS, (Reported) Famotidine 20 Mg Tablet, 20 MG PO BID Prescribed by: SHU TODD on 09/24/17 2210 Finasteride 5 Mg Tablet, 5 MG PO DAILY, (Reported) Fluticasone Propionate 9.9 Ml Hulbert.susp, 2 SPRAY NSEACH DAILY 2 SPRAYS PER NOSTRIL DAILY X 2 DAYS THEN 1 SPRAY DAILY Prescribed by: YANETH BRICEÑO on 12/26/17 1544 Glyburide 1.25 Mg Tablet, 1.25 MG PO DAILY Prescribed by: AQUILINO DUDLEY on 09/10/17 1817 Lisinopril 20 Mg Tablet, 20 MG PO DAILY, (Reported) Melatonin/Pyridoxine 1 Each Tablet, 5 MG PO HS, (Reported) Meloxicam 15 Mg Tablet, 7.5 MG PO DAILY, (Reported) Memantine HCl 10 Mg Tablet, 10 MG PO BID, (Reported) Metoclopramide HCl 5 Mg Tablet, 5 MG PO ACHS Prescribed by: SHU TODD on 09/24/17 221 Mirtazapine 15 Mg Tablet, 15 MG PO DAILY, (Reported) Multivitamin 1 Each Capsule, 1 EACH PO DAILY, (Reported) Pantoprazole Sodium 40 Mg Tablet.dr, 40 MG PO DAILY Prescribed by: LUCAS CALLES on 10/22/17 132 Ropinirole HCl 0.25 Mg Tab, 0.25 MG PO BID Prescribed by: JONN REID on 04/14/16 0825 Solifenacin Succinate 5 Mg Tablet, 5 MG PO DAILY, (Reported) Sucralfate 1 Gm Tablet, 1 GM PO ACHS makes with 2 teaspoon of water to dissolve into a slurry. Alternatively, may swallow the tablet in solid form Prescribed by: LUCAS CALLES on 10/22/17 132 Patient Home Medication List Home Medication List Reviewed: Yes Review of Systems Review of Systems Constitutional: see HPI; No chills, No fever EENTM: no symptoms reported Respiratory: No cough, No short of breath Cardiovascular: No chest pain, No edema Gastrointestinal: No abdominal pain, No nausea, No vomiting Genitourinary: no symptoms reported Musculoskeletal: no symptoms reported Psychiatric/Neurological: See HPI; Denies Headache; Other (dizziness) All Other Systems Reviewed Negative Unless Noted: Yes Past Iddmumb-[place]uz[place]-Wnlaqd Hx Past Med/Social Hx: Reviewed Nursing Past Med/Soc Hx Patient Social History Alcohol Use: Denies Use Recreational Drug Use: No Smoking Status: Never a Smoker 2nd Hand Smoke Exposure: No Recent Foreign Travel: No Contact w/Someone Who Travel: No Recent Infectious Disease Expo: No Recent Hopitalizations: No Immunizations Up To Date Tetanus Booster (TDap): Less than 5yrs Date of Pneumonia Vaccine: May 09, 2012 Date of Influenza Vaccine: Feb 06, 2017 Seasonal Allergies Seasonal Allergies: No Past Medical History Surgeries: Yes Abdominal, Adenoidectomy, Cardiac, Coronary Stent, Eye Surgery, Orthopedic, Tonsillectomy, Transurethral Resection Respiratory: No Cardiac: Yes (STENTS X2) Coronary Artery Disease, High Cholesterol, Hypertension Neurological: Yes (1993-STROKE; RESTLESS LEG SYNDROME) Dementia, Stroke Reproductive Disorders: No Sexually Transmitted Disease: No HIV/AIDS: No Genitourinary: Yes (HX TURP; PROSTATE CANCER) Benign Prostatic Hyperpl, Prostate Problems Gastrointestinal: Yes ("GASTRIC EROSIONS") Gastroesophageal Reflux, Chronic Constipation, Diverticulosis, Ulcer, Irritable Bowel Musculoskeletal: Yes (ARTHRITIS; RESTLESS LEG SYNDROME) Arthritis Endocrine: Yes Diabetes, Non-Insulin dep HEENT: Yes Cataract Loss of Vision: Bilateral Hearing Impairment: Hard of Hearing, Bilateral Hearing Aide Cancer: Yes Prostate Did You Recieve Any Treatments: Yes What Type of Treatment Did You: Surgical Intervention Psychosocial: No Integumentary: No Blood Disorders: No Adverse Reaction/Blood Tranf: No (HAS HAD BLOOD WITH NO REACTION) Family Medical History Reviewed Nursing Family Hx No Pertinent Family Hx Physical Exam Vital Signs Vital Signs - First Documented 03/15/18 08:36 Temp 95.6 Pulse 59 Resp 18 B/P (MAP) 127/80 (96) Pulse Ox 96 O2 Delivery Room Air Capillary Refill : Less Than 3 Seconds Height, Weight, BMI Height: 5'9.00" Weight: 135lbs. 0oz. 61.043968ic; 20.2 BMI Method:Stated General Appearance: No Apparent Distress, Thin HEENT: PERRL/EOMI, Other (dry mucous membranes) Neck: Non Tender, Supple Respiratory: Lungs Clear, Normal Breath Sounds Cardiovascular: Regular Rate, Rhythm, No Murmur Gastrointestinal: Non Tender, Soft Back: Normal Inspection, No CVA Tenderness, No Vertebral Tenderness Extremity: Normal Range of Motion, Non Tender Neurologic/Psychiatric: Alert, Oriented x3, No Motor/Sensory Deficits, Normal Mood/Affect Skin: Normal Color, Warm/Dry Progress/Results/Core Measures Suspected Sepsis Recent Fever Within 48 Hours: No Infection Criteria Present: None New/Unexplained Altered Menta: No Sepsis Screen: No Definite Risk SIRS Temperature:95.6 Pulse: 59 Respiratory Rate: 18 Laboratory Tests 03/15/18 08:42: White Blood Count 4.6 Blood Pressure 127 /80 Mean: 96 Laboratory Tests 03/15/18 08:42: Creatinine 1.05, Platelet Count 179, Total Bilirubin 0.6 Results/Orders Lab Results Laboratory Tests Test 03/15/18 08:42 Range/Units White Blood Count 4.6 4.3-11.0 10^3/uL Red Blood Count 4.24 L 4.35-5.85 10^6/uL Hemoglobin 13.4 13.3-17.7 G/DL Hematocrit 40 40-54 % Mean Corpuscular Volume 93 80-99 FL Mean Corpuscular Hemoglobin 32 25-34 PG Mean Corpuscular Hemoglobin Concent 34 32-36 G/DL Red Cell Distribution Width 14.2 10.0-14.5 % Platelet Count 179 130-400 10^3/uL Mean Platelet Volume 10.5 H 7.4-10.4 FL Neutrophils (%) (Auto) 54 42-75 % Lymphocytes (%) (Auto) 33 12-44 % Monocytes (%) (Auto) 12 0-12 % Eosinophils (%) (Auto) 2 0-10 % Basophils (%) (Auto) 0 0-10 % Neutrophils # (Auto) 2.5 1.8-7.8 X 10^3 Lymphocytes # (Auto) 1.5 1.0-4.0 X 10^3 Monocytes # (Auto) 0.5 0.0-1.0 X 10^3 Eosinophils # (Auto) 0.1 0.0-0.3 10^3/uL Basophils # (Auto) 0.0 0.0-0.1 10^3/uL Sodium Level 142 135-145 MMOL/L Potassium Level 3.4 L 3.6-5.0 MMOL/L Chloride Level 106 98-107 MMOL/L Carbon Dioxide Level 26 21-32 MMOL/L Anion Gap 10 5-14 MMOL/L Blood Urea Nitrogen 25 H 7-18 MG/DL Creatinine 1.05 0.60-1.30 MG/DL Estimat Glomerular Filtration Rate > 60 BUN/Creatinine Ratio 24 Glucose Level 119 H 70-105 MG/DL Calcium Level 10.1 8.5-10.1 MG/DL Corrected Calcium 10.1 8.5-10.1 MG/DL Magnesium Level 2.1 1.8-2.4 MG/DL Total Bilirubin 0.6 0.1-1.0 MG/DL Aspartate Amino Transf (AST/SGOT) 27 5-34 U/L Alanine Aminotransferase (ALT/SGPT) 18 0-55 U/L Alkaline Phosphatase 104 40-136 U/L Troponin I < 0.30 <0.30 NG/ML Total Protein 6.2 L 6.4-8.2 GM/DL Albumin 4.0 3.2-4.5 GM/DL My Orders Orders - AQUILINO DUDLEY MD Ekg Tracing (03/15/18 08:41) Cbc With Automated Diff (03/15/18 08:59) Comprehensive Metabolic Panel (03/15/18 08:59) Magnesium (03/15/18 08:59) Troponin I (03/15/18 08:59) Ns Iv 500 Ml (Sodium Chloride 0.9%) (03/15/18 08:59) General/Regular (03/15/18 Breakfast) Medications Given in ED Current Medications Medications Dose Ordered Sig/Niall Route Start Time Stop Time Status Last Admin Dose Admin Sodium Chloride 500 ml @ 0 mls/hr Q0M ONCE IV 03/15/18 08:59 03/15/18 09:01 DC 03/15/18 09:10 500 MLS/HR Vital Signs/I&O 03/15/18 08:36 Temp 95.6 Pulse 59 Resp 18 B/P (MAP) 127/80 (96) Pulse Ox 96 O2 Delivery Room Air Capillary Refill : Less Than 3 Seconds Blood Pressure Mean: 96 Progress Note : Progress Note Seen and evaluated. IV by EMS. Normal saline 500 mL bolus. We will check EKG and labs and get breakfast for him. Currently without dizziness complaints. Monitor patient. 1000: Overall doing much better and tolerating meal without difficulty. Patient is sitting up and has no dizziness currently. Discharged home with return precautions. Patient and family verbalize understanding instructions and agreement with plan. 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 Left axis deviation. No evidence of ST elevation CA. Similar to 31 August 2014. Interpreted by me. Departure Impression Primary Impression: Dizziness Disposition: 01 HOME, SELF-CARE Condition: Improved Departure-Patient Inst. Decision time for Depature: 10:02 Referrals: DAYDAY JACQUES MD (PCP/Family) Primary Care Physician Patient Instructions: Vertigo (a Type of Dizziness) (DC) Add. Discharge Instructions: All discharge instructions reviewed with patient and/or family. Voiced understanding. Drink plenty of fluids and eat a normal diet. Follow-up with your Dr. in one to 2 days for recheck and further evaluation. Return for worse pain, weakness, dizziness, breathing problems or other concerns as needed. AQUILINO DUDLEY MD Mar 15, 2018 09:20
[2018-03-15 10:30] VITALS: BP 137/90
== END 2018-03-15 10:30 | disposition home or self-care (01) ==
LOC: EDUNIT# 08:36 → ER 08:36
DX: R42 Dizziness and giddiness (principal); I25.10 Atherosclerotic heart disease of native coronary artery without angina pectoris; I10 Essential (primary) hypertension; E78.00 Pure hypercholesterolemia, unspecified; F03.90 Unspecified dementia, unspecified severity, without behavioral disturbance, psychotic disturbance, mood disturbance, and anxiety; K21.9 Gastro-esophageal reflux disease without esophagitis; E11.9 Type 2 diabetes mellitus without complications; Z85.46 Personal history of malignant neoplasm of prostate; Z87.19 Personal history of other diseases of the digestive system; Z86.73 Personal history of transient ischemic attack (TIA), and cerebral infarction without residual deficits; Z88.6 Allergy status to analgesic agent; Z88.5 Allergy status to narcotic agent; Z79.82 Long term (current) use of aspirin; Z79.84 Long term (current) use of oral hypoglycemic drugs; Z95.5 Presence of coronary angioplasty implant and graft; Z90.89 Acquired absence of other organs
CPT/HCPCS: 36415; 80053; 83735; 84484; 85025; 93005; 96360

== ENCOUNTER 2018-06-14 08:40 | Outpatient (RCR) | payer MEDICARE ==
[2018-03-22 15:09] LABS: BASOPHILS % (AUTO) 0 % (0-10); EOSINOPHILS # (AUTO) 0.1 10^3/uL (0.0-0.3); EOSINOPHILS % (AUTO) 1 % (0-10); HEMATOCRIT 42 % (40-54); HEMOGLOBIN 13.9 G/DL (13.3-17.7); LYMPHOCYTES # (AUTO) 1.2 X 10^3 (1.0-4.0); LYMPHOCYTES % (AUTO) 23 % (12-44); MEAN CORPUSCULAR HEMOGLOBIN 32 PG (25-34); MEAN CORPUSCULAR HGB CONC 33 G/DL (32-36); MEAN CORPUSCULAR VOLUME 94 FL (80-99); MEAN PLATELET VOLUME 10.3 FL (7.4-10.4); MONOCYTES # (AUTO) 0.6 X 10^3 (0.0-1.0); MONOCYTES % (AUTO) 11 % (0-12); NEUTROPHILS # (AUTO) 3.4 X 10^3 (1.8-7.8); NEUTROPHILS % (AUTO) 65 % (42-75); PLATELET COUNT 189 10^3/uL (130-400); RED CELL DISTRIBUTION WIDTH 14.1 % (10.0-14.5); WHITE BLOOD COUNT 5.3 10^3/uL (4.3-11.0)
[2018-03-22 15:28] LABS: ALBUMIN 4.5 GM/DL (3.2-4.5); BILIRUBIN,TOTAL 0.5 MG/DL (0.1-1.0); CALCIUM 10.2 MG/DL (8.5-10.1); CREATININE SERUM 1.17 MG/DL (0.60-1.30); TOTAL PROTEIN 6.9 GM/DL (6.4-8.2)
[2018-06-12 12:02] LABS: BASOPHILS % (AUTO) 0 % (0-10); EOSINOPHILS # (AUTO) 0.1 10^3/uL (0.0-0.3); EOSINOPHILS % (AUTO) 1 % (0-10); HEMATOCRIT 42 % (40-54); HEMOGLOBIN 14.2 G/DL (13.3-17.7); LYMPHOCYTES # (AUTO) 1.1 X 10^3 (1.0-4.0); LYMPHOCYTES % (AUTO) 25 % (12-44); MEAN CORPUSCULAR HEMOGLOBIN 31 PG (25-34); MEAN CORPUSCULAR HGB CONC 34 G/DL (32-36); MEAN CORPUSCULAR VOLUME 93 FL (80-99); MEAN PLATELET VOLUME 10.3 FL (7.4-10.4); MONOCYTES # (AUTO) 0.6 X 10^3 (0.0-1.0); MONOCYTES % (AUTO) 14 % (0-12); NEUTROPHILS # (AUTO) 2.7 X 10^3 (1.8-7.8); NEUTROPHILS % (AUTO) 61 % (42-75); PLATELET COUNT 181 10^3/uL (130-400); RED CELL DISTRIBUTION WIDTH 13.3 % (10.0-14.5); WHITE BLOOD COUNT 4.5 10^3/uL (4.3-11.0)
[2018-06-12 12:23] LABS: ALANINE AMINOTRANSFERASE 26 U/L (0-55); ALBUMIN 4.4 GM/DL (3.2-4.5); ALKALINE PHOSPHATASE 109 U/L (40-136); BILIRUBIN,TOTAL 0.5 MG/DL (0.1-1.0); BUN/CREATININE RATIO 19; CALCIUM 10.1 MG/DL (8.5-10.1); CARBON DIOXIDE 27 MMOL/L (21-32); CHLORIDE 97 MMOL/L (98-107); CREATININE SERUM 1.09 MG/DL (0.60-1.30); GFR ESTIMATED > 60; GLUCOSE 79 MG/DL (70-105); SODIUM 136 MMOL/L (135-145); TOTAL PROTEIN 6.8 GM/DL (6.4-8.2)
[~2018-06-14 08:40] MED LIST changes: -AMLO10TA6 PO; +AMLO10TA7 PO; +LEUPROLIDE 22.5 MG SYRIN(ELIGARD) SQ SCH
== END 2018-06-20 | disposition home or self-care (01) ==
LOC: ONC 08:40
PROVIDERS: ATTEND Internal Medicine Hematology & Oncology
DX: C61 Malignant neoplasm of prostate (principal); I25.10 Atherosclerotic heart disease of native coronary artery without angina pectoris; M19.91 Primary osteoarthritis, unspecified site; E78.5 Hyperlipidemia, unspecified; E03.9 Hypothyroidism, unspecified; Z86.73 Personal history of transient ischemic attack (TIA), and cerebral infarction without residual deficits; Z79.899 Other long term (current) drug therapy
CPT/HCPCS: 36415; 80053; 84153; 85025; 96402

== ENCOUNTER → 2019-02-13 | Outpatient (CLI) | payer MEDICARE ==
[~2019-02-13] VITALS: Ht 170 cm; Wt 62.0 kg
[~2019-02-13] MED LIST changes: +CATHETER FLUSH 10 ML SYR IV PRN; -LEUPROLIDE 22.5 MG SYRIN(ELIGARD) SQ SCH; +REGADENOSON 0.4 MG/5 ML SYR (LEXISCAN) IV ONE
[2019-02-13 12:00] VITALS: BP 151/73
[2019-02-13 12:03] VITALS: BP 133/77
--- NOTE | 2019-02-13 16:28 | STRESS TEST ---
DATE OF SERVICE: 02/13/2019 RESTING AND POST REGADENOSON TECHNETIUM-99M TETROFOSMIN SPECT CT IMAGING ORDERING PHYSICIAN: Dr. eMrlos. PRIMARY PHYSICIAN: Dr. Carlos. CLINICAL DIAGNOSES: Shortness of breath, coronary artery disease. Baseline images were carried out after injection of 10.37 mCi of technetium-99m Tetrofosmin. This was followed by 0.4 mg Regadenoson and 32.1 mCi technetium-99m Tetrofosmin. The electrocardiogram showed sinus rhythm with incomplete branch block at the baseline. Prior inferolateral myocardial infarction cannot be excluded on the electrocardiogram. The electrocardiogram did not change significantly with the Regadenoson infusion. He tolerated the procedure well. Review of images at rest and following stress does not indicate distinct perfusion defects consistent with myocardial ischemia or infarction. Gated images show normal global left ventricular systolic function with normal regional wall motion. Left ventricular ejection fraction is calculated to be 58%. Left ventricular end diastolic volume is 57 mL. TID is absent (0.96). of the electrocardiogram by volume. CONCLUSIONS: 1. No evidence of significant myocardial ischemia or infarction on this study. 2. Normal regional wall motion. 3. Normal global left ventricular systolic function with a calculated ejection fraction of 58%. Job ID: [id number] DocumentID: [id number] Dictated Date: 02/13/2019 13:57:09 Scout Date: 02/13/2019 16:27:30 Dictated By: WILNER MERLOS MD, MA, FACP, FACC,
== END ==
LOC: CARD 10:44
PROVIDERS: ATTEND Internal Medicine Cardiovascular Disease
DX: I25.10 Atherosclerotic heart disease of native coronary artery without angina pectoris (principal); I65.29 Occlusion and stenosis of unspecified carotid artery; Z86.79 Personal history of other diseases of the circulatory system; R00.1 Bradycardia, unspecified
CPT/HCPCS: 78452; 93017

== ENCOUNTER 2019-05-16 13:03 | Outpatient (RCR) | payer MEDICARE ==
[2019-02-19 10:17] LABS: BASOPHILS % (AUTO) 0 % (0-10); EOSINOPHILS # (AUTO) 0.1 10^3/uL (0.0-0.3); EOSINOPHILS % (AUTO) 3 % (0-10); HEMATOCRIT 39 % (40-54); HEMOGLOBIN 13.3 G/DL (13.3-17.7); LYMPHOCYTES # (AUTO) 0.8 X 10^3 (1.0-4.0); LYMPHOCYTES % (AUTO) 23 % (12-44); MEAN CORPUSCULAR HEMOGLOBIN 32 PG (25-34); MEAN CORPUSCULAR HGB CONC 34 G/DL (32-36); MEAN CORPUSCULAR VOLUME 94 FL (80-99); MEAN PLATELET VOLUME 10.1 FL (7.4-10.4); MONOCYTES # (AUTO) 0.5 X 10^3 (0.0-1.0); MONOCYTES % (AUTO) 13 % (0-12); NEUTROPHILS # (AUTO) 2.2 X 10^3 (1.8-7.8); NEUTROPHILS % (AUTO) 61 % (42-75); PLATELET COUNT 170 10^3/uL (130-400); WHITE BLOOD COUNT 3.6 10^3/uL (4.3-11.0)
[2019-02-19 10:47] LABS: ALANINE AMINOTRANSFERASE 20 U/L (0-55); ALBUMIN 3.9 GM/DL (3.2-4.5); ALKALINE PHOSPHATASE 95 U/L (40-136); BILIRUBIN,TOTAL 0.4 MG/DL (0.1-1.0); BUN/CREATININE RATIO 20; CALCIUM 9.5 MG/DL (8.5-10.1); CARBON DIOXIDE 29 MMOL/L (21-32); CHLORIDE 98 MMOL/L (98-107); CREATININE SERUM 1.02 MG/DL (0.60-1.30); GFR ESTIMATED > 60; GLUCOSE 82 MG/DL (70-105); POTASSIUM 4.3 MMOL/L (3.6-5.0); SODIUM 134 MMOL/L (135-145); TOTAL PROTEIN 6.1 GM/DL (6.4-8.2)
[2019-05-14 11:41] LABS: BASOPHILS % (AUTO) 0 % (0-10); EOSINOPHILS % (AUTO) 1 % (0-10); HEMATOCRIT 43 % (40-54); HEMOGLOBIN 14.4 G/DL (13.3-17.7); LYMPHOCYTES # (AUTO) 1.1 X 10^3 (1.0-4.0); LYMPHOCYTES % (AUTO) 18 % (12-44); MEAN CORPUSCULAR HEMOGLOBIN 32 PG (25-34); MEAN CORPUSCULAR HGB CONC 34 G/DL (32-36); MEAN CORPUSCULAR VOLUME 96 FL (80-99); MEAN PLATELET VOLUME 9.6 FL (7.4-10.4); MONOCYTES % (AUTO) 15 % (0-12); NEUTROPHILS # (AUTO) 4.4 X 10^3 (1.8-7.8); NEUTROPHILS % (AUTO) 67 % (42-75); PLATELET COUNT 215 10^3/uL (130-400); RED CELL DISTRIBUTION WIDTH 14.5 % (10.0-14.5); WHITE BLOOD COUNT 6.5 10^3/uL (4.3-11.0)
[2019-05-14 12:06] LABS: ALBUMIN 4.1 GM/DL (3.2-4.5); BILIRUBIN,TOTAL 0.5 MG/DL (0.1-1.0); CALCIUM 9.3 MG/DL (8.5-10.1); CREATININE SERUM 1.2 MG/DL (0.60-1.30); POTASSIUM 4.7 MMOL/L (3.6-5.0); TOTAL PROTEIN 6.2 GM/DL (6.4-8.2)
[~2019-05-16 13:03] MED LIST changes: -CATHETER FLUSH 10 ML SYR IV PRN; +LEUPROLIDE 22.5 MG SYRINGE (ELIGARD) SQ SCH; -REGADENOSON 0.4 MG/5 ML SYR (LEXISCAN) IV ONE
== END 2019-05-20 | disposition home or self-care (01) ==
LOC: ONC 13:03
PROVIDERS: ATTEND Internal Medicine Hematology & Oncology
DX: C61 Malignant neoplasm of prostate (principal)
CPT/HCPCS: 36415; 80053; 84153; 85025; 96402

== ENCOUNTER 2019-07-11 14:48 | Emergency (ER) | payer MEDICARE ==
[~2019-07-11] VITALS: Ht 177 cm; Wt 63.0 kg
[~2019-07-11 14:48] MED LIST changes: -LEUPROLIDE 22.5 MG SYRINGE (ELIGARD) SQ SCH
[2019-07-11 15:27] LABS: BASOPHILS % (AUTO) 0 % (0-10); EOSINOPHILS % (AUTO) 0 % (0-10); HEMATOCRIT 38 % (40-54); HEMOGLOBIN 13.1 G/DL (13.3-17.7); LYMPHOCYTES # (AUTO) 0.4 X 10^3 (1.0-4.0); LYMPHOCYTES % (AUTO) 7 % (12-44); MEAN CORPUSCULAR HEMOGLOBIN 33 PG (25-34); MEAN CORPUSCULAR HGB CONC 35 G/DL (32-36); MEAN CORPUSCULAR VOLUME 96 FL (80-99); MEAN PLATELET VOLUME 9.1 FL (7.4-10.4); MONOCYTES # (AUTO) 0.4 X 10^3 (0.0-1.0); MONOCYTES % (AUTO) 8 % (0-12); NEUTROPHILS # (AUTO) 4.7 X 10^3 (1.8-7.8); NEUTROPHILS % (AUTO) 86 % (42-75); PLATELET COUNT 201 10^3/uL (130-400); RED CELL DISTRIBUTION WIDTH 15.1 % (10.0-14.5); WHITE BLOOD COUNT 5.4 10^3/uL (4.3-11.0)
--- NOTE | 2019-07-11 15:27 | ED General ---
General Chief Complaint: Dizziness/Syncope Stated Complaint: MULTIPLE FALLS Nursing Triage Note: ARRIVED VIA WC. COMPLAINS OF DIZZINESS STARTING ON TUESDAY. WAS SEEN AT [facility] [place] YESTERDAY. WAS TOLD THIS AM HIS SODIUM WAS LOW. PT STATES HE FELL THIS AM. DENIES HITTING HIS HEAD OR INJURY. Nursing Sepsis Screen: No Definite Risk History of Present Illness Date Seen by Provider: Jul 11, 2019 Time Seen by Provider: 15:15 Initial Comments 88-year-old male presents with falls over the last week to 2 weeks. Patient fell this morning couple days ago. Patient was seen at Dr. Carlos's yesterday by the nurse practitioner. Patient was told he had a little bit a low sodium otherwise had a negative evaluation. Patient reports he fell this morning. Patient is not dizzy at this time. Patient denies any symptoms at this time. Patient is here because he wants a second opinion. Patient denies hitting his head or any other injuries from his fall. She denies any chest pain, nausea vomiting or any other systemic complaints besides that occasional dizziness. Allergies and Home Medications Allergies Coded Allergies: butorphanol (Verified Allergy, Unknown, 08/22/17) ketorolac (Verified Adverse Reaction, Mild, STATES CAUSES MORE PAIN, 08/22/17) Home Medications Alprazolam 0.25 Mg Tablet, 0.25 MG PO BID PRN for ANXIETY Prescribed by: LUCAS CALLES on 01/07/18 1402 Amlodipine Besylate 10 Mg Tablet, 10 MG PO HS, (Reported) Aspirin 81 Mg Tablet.dr, 81 MG PO DAILY, (Reported) Calcium Polycarbophil 625 Mg Tablet, 625 MG PO DAILY, (Reported) Cefdinir 300 Mg Capsule, 300 MG PO BID Prescribed by: ZAYDA NAIR on 12/13/17 0704 Cetirizine HCl 10 Mg Tablet, 10 MG PO DAILY Prescribed by: JONN REID on 04/14/16 0821 Citalopram Hydrobromide 10 Mg Tablet, 10 MG PO DAILY, (Reported) Clopidogrel Bisulfate 75 Mg Tablet, 75 MG PO DAILY, (Reported) Donepezil HCl 10 Mg Tablet, 10 MG PO HS, (Reported) Famotidine 20 Mg Tablet, 20 MG PO BID Prescribed by: SHU TODD on 09/24/17 2210 Finasteride 5 Mg Tablet, 5 MG PO DAILY, (Reported) Fluticasone Propionate 9.9 Ml Rebecca.susp, 2 SPRAY NSEACH DAILY 2 SPRAYS PER NOSTRIL DAILY X 2 DAYS THEN 1 SPRAY DAILY Prescribed by: YANETH BRICEÑO on 12/26/17 1544 Glyburide 1.25 Mg Tablet, 1.25 MG PO DAILY Prescribed by: AQUILINO DUDLEY on 09/10/17 1817 Lisinopril 20 Mg Tablet, 20 MG PO DAILY, (Reported) Melatonin/Pyridoxine 1 Each Tablet, 5 MG PO HS, (Reported) Meloxicam 15 Mg Tablet, 7.5 MG PO DAILY, (Reported) Memantine HCl 10 Mg Tablet, 10 MG PO BID, (Reported) Metoclopramide HCl 5 Mg Tablet, 5 MG PO ACHS Prescribed by: SHU TODD on 09/24/17 221 Mirtazapine 15 Mg Tablet, 15 MG PO DAILY, (Reported) Multivitamin 1 Each Capsule, 1 EACH PO DAILY, (Reported) Pantoprazole Sodium 40 Mg Tablet.dr, 40 MG PO DAILY Prescribed by: LUCAS CALLES on 10/22/17 1326 Ropinirole HCl 0.25 Mg Tab, 0.25 MG PO BID Prescribed by: JONN REID on 04/14/16 0825 Solifenacin Succinate 5 Mg Tablet, 5 MG PO DAILY, (Reported) Sucralfate 1 Gm Tablet, 1 GM PO ACHS makes with 2 teaspoon of water to dissolve into a slurry. Alternatively, may swallow the tablet in solid form Prescribed by: LUCAS CALLES on 10/22/17 1326 Patient Home Medication List Home Medication List Reviewed: Yes Review of Systems Review of Systems Constitutional: No chills; dizziness; No malaise EENTM: see HPI Respiratory: see HPI Cardiovascular: see HPI Genitourinary: see HPI Musculoskeletal: see HPI Skin: see HPI Psychiatric/Neurological: See HPI Past Lwrazwj-Vyruvi-Eejsbs Hx Past Med/Social Hx: Reviewed Nursing Past Med/Soc Hx Patient Social History Alcohol Use: Denies Use Recreational Drug Use: No Smoking Status: Never a Smoker 2nd Hand Smoke Exposure: No Recent Foreign Travel: No Contact w/Someone Who Travel: No Recent Infectious Disease Expo: No Recent Hopitalizations: No Physical Abuse: No Sexual Abuse: No Mistreated: No Fear: No Immunizations Up To Date Tetanus Booster (TDap): Less than 5yrs Date of Pneumonia Vaccine: May 09, 2012 Date of Influenza Vaccine: Feb 06, 2017 Seasonal Allergies Seasonal Allergies: No Past Medical History Surgeries: Yes Abdominal, Adenoidectomy, Cardiac, Coronary Stent, Eye Surgery, Orthopedic, Tonsillectomy, Transurethral Resection Respiratory: No Cardiac: Yes (STENTS X2) Coronary Artery Disease, High Cholesterol, Hypertension Neurological: Yes (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; RESTLESS LEG SYNDROME) Dementia, Stroke Reproductive Disorders: No Sexually Transmitted Disease: No HIV/AIDS: No Genitourinary: Yes (HX TURP; PROSTATE CANCER) Benign Prostatic Hyperpl, Prostate Problems Gastrointestinal: Yes ("GASTRIC EROSIONS") Gastroesophageal Reflux, Chronic Constipation, Diverticulosis, Ulcer, Irritable Bowel Musculoskeletal: Yes (ARTHRITIS; RESTLESS LEG SYNDROME) Arthritis Endocrine: Yes Diabetes, Non-Insulin dep HEENT: Yes Cataract Loss of Vision: Bilateral Hearing Impairment: Hard of Hearing, Bilateral Hearing Aide Cancer: Yes Prostate Did You Recieve Any Treatments: Yes What Type of Treatment Did You: Surgical Intervention Psychosocial: No Integumentary: No Blood Disorders: No Adverse Reaction/Blood Tranf: No (HAS HAD BLOOD WITH NO REACTION) Family Medical History No Pertinent Family Hx Physical Exam Vital Signs Vital Signs - First Documented 07/11/19 14:54 Temp 36.2 Pulse 78 Resp 16 B/P (MAP) 131/70 (90) Capillary Refill : Less Than 3 Seconds Height, Weight, BMI Height: 5'9.00" Weight: 135lbs. 0oz. 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 Norm as Tested Skin: Normal Color, Warm/Dry Progress/Results/Core Measures Suspected Sepsis Recent Fever Within 48 Hours: No Infection Criteria Present: None New/Unexplained Altered Menta: No Sepsis Screen: No Definite Risk SIRS Temperature: Pulse: 78 Respiratory Rate: 16 Laboratory Tests 07/11/19 15:18: White Blood Count 5.4 Blood Pressure 131 /70 Mean: 90 Laboratory Tests 07/11/19 15:18: Creatinine 1.10, Platelet Count 201, Total Bilirubin 0.4 Results/Orders Lab Results Laboratory Tests Test 07/11/19 15:18 07/11/19 15:26 Range/Units White Blood Count 5.4 4.3-11.0 10^3/uL Red Blood Count 3.92 L 4.35-5.85 10^6/uL Hemoglobin 13.1 L 13.3-17.7 G/DL Hematocrit 38 L 40-54 % Mean Corpuscular Volume 96 80-99 FL Mean Corpuscular Hemoglobin 33 25-34 PG Mean Corpuscular Hemoglobin Concent 35 32-36 G/DL Red Cell Distribution Width 15.1 H 10.0-14.5 % Platelet Count 201 130-400 10^3/uL Mean Platelet Volume 9.1 7.4-10.4 FL Neutrophils (%) (Auto) 86 H 42-75 % Lymphocytes (%) (Auto) 7 L 12-44 % Monocytes (%) (Auto) 8 0-12 % Eosinophils (%) (Auto) 0 0-10 % Basophils (%) (Auto) 0 0-10 % Neutrophils # (Auto) 4.7 1.8-7.8 X 10^3 Lymphocytes # (Auto) 0.4 L 1.0-4.0 X 10^3 Monocytes # (Auto) 0.4 0.0-1.0 X 10^3 Eosinophils # (Auto) 0.0 0.0-0.3 10^3/uL Basophils # (Auto) 0.0 0.0-0.1 10^3/uL Neutrophils % (Manual) 81 % Lymphocytes % (Manual) 6 % Monocytes % (Manual) 6 % Eosinophils % (Manual) 0 % Basophils % (Manual) 0 % Band Neutrophils 7 % Anisocytosis SLIGHT Sodium Level 130 L 135-145 MMOL/L Potassium Level 3.9 3.6-5.0 MMOL/L Chloride Level 96 L 98-107 MMOL/L Carbon Dioxide Level 27 21-32 MMOL/L Anion Gap 7 5-14 MMOL/L Blood Urea Nitrogen 20 H 7-18 MG/DL Creatinine 1.10 0.60-1.30 MG/DL Estimat Glomerular Filtration Rate > 60 BUN/Creatinine Ratio 18 Glucose Level 160 H 70-105 MG/DL Calcium Level 9.2 8.5-10.1 MG/DL Corrected Calcium 9.3 8.5-10.1 MG/DL Magnesium Level 2.1 1.6-2.4 MG/DL Total Bilirubin 0.4 0.1-1.0 MG/DL Aspartate Amino Transf (AST/SGOT) 30 5-34 U/L Alanine Aminotransferase (ALT/SGPT) 27 0-55 U/L Alkaline Phosphatase 81 40-136 U/L Troponin I < 0.028 <0.028 NG/ML B-Type Natriuretic Peptide 151.5 H <100.0 PG/ML Total Protein 5.9 L 6.4-8.2 GM/DL Albumin 3.9 3.2-4.5 GM/DL Urine Color YELLOW Urine Clarity CLEAR Urine pH 7.0 5-9 Urine Specific [place] 1.015 L 1.016-1.022 Urine Protein NEGATIVE NEGATIVE Urine Glucose (UA) NEGATIVE NEGATIVE Urine Ketones NEGATIVE NEGATIVE Urine Nitrite NEGATIVE NEGATIVE Urine Bilirubin NEGATIVE NEGATIVE Urine Urobilinogen 0.2 < = 1.0 MG/DL Urine Leukocyte Esterase NEGATIVE NEGATIVE Urine RBC (Auto) NEGATIVE NEGATIVE Urine RBC RARE /HPF Urine WBC NONE /HPF Urine Squamous Epithelial Cells RARE /HPF Urine Crystals PRESENT H /LPF Urine Amorphous Sediment FEW RANDA PHOSPHATE H /LPF Urine Bacteria TRACE /HPF Urine Casts PRESENT /LPF Urine Hyaline Casts 2-5 H /LPF Urine Mucus NEGATIVE /LPF Urine Culture Indicated NO Micro Results Microbiology 07/11/19 Influenza Types A,B Antigen (GERRY) - Final, Complete My Orders Orders - MARROQUIN,ALEK L DO Chest 1 View, Ap/Pa Only (07/11/19 15:10) Ct Head Wo (07/11/19 15:10) BNP (07/11/19 15:10) Cbc With Automated Diff (07/11/19 15:10) Comprehensive Metabolic Panel (07/11/19 15:10) Magnesium (07/11/19 15:10) Troponin I (07/11/19 15:10) Ua Culture If Indicated (07/11/19 15:10) Influenza A And B Antigens (07/11/19 15:10) Ekg Tracing (07/11/19 15:10) Orthostatic Vital Signs (Adult (07/11/19 15:27) Manual Differential (07/11/19 15:18) Vital Signs/I&O 07/11/19 07/11/19 14:54 15:54 Temp 36.2 Pulse 78 69 67 76 Resp 16 B/P (MAP) 131/70 (90) 110/61 (77) 122/66 (84) 121/70 (87) Capillary Refill : Less Than 3 Seconds Blood Pressure Mean: 90 Progress Note : Time: 16:49 Progress Note Patient with no acute findings on his workup. He doesn't have an old cerebellar stroke which is likely contributing to his dizziness. Patient already has an outpatient order for physical therapy which he meets with next week. I highly stressed that he keeps that. He should follow-up with his primary care for further evaluation. Patient is stable and will be discharged home. ECG Initial ECG Impression Date: Jul 11, 2019 Initial ECG Impression Time: 15:42 Initial ECG Rate: 65 Initial ECG Rhythm: Normal Sinus Initial ECG Impression: Nonspecific Changes Initial ECG Comparisson: Unchanged Comment similar ekg to 03/25/18. left anterior fasicular block. old anteroseptal infarc t Diagnostic Imaging Diagonstic Imaging: CT Comments [place] NAME: JENIFER BORJAS [facility] REC#: [id number] PT STATUS: REG ER : 1930 PHYSICIAN: ALEK MARROQUIN DO ADMIT DATE: 07/11/19/ER Draft Date of Exam:07/11/19 CT HEAD WO PROCEDURE: CT head without contrast. TECHNIQUE: Multiple contiguous axial images were obtained through the brain without the use of intravenous contrast. Auto Exposure Controls were utilized during the CT exam to meet ALARA standards for radiation dose reduction. DATE: July 11, 2019. COMPARISON: CT head November 08, 2016. INDICATION: 88-year-old male, multiple falls during the past week. Dizziness. FINDINGS: There are areas of low-attenuation in the subcortical and periventricular white matter, likely reflecting advanced findings of chronic small vessel ischemic disease although are not technically specific. 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 There is proportional prominence of the ventricles and CSF spaces consistent with mild cerebral volume loss. There is no mass effect or midline shift. There is no acute intracranial hemorrhage. There is no abnormal extra-axial fluid collection. The visualized portions of the paranasal sinuses, mastoid air cells and middle ears are well aerated. IMPRESSION: 1. No identified acute intracranial abnormality. 2. Mild cerebral volume loss with probable advanced changes of chronic small vessel ischemic disease and remote prior left cerebellar infarct. Departure Impression Primary Impression: Dizziness Additional Impression: Generalized weakness Disposition: 01 HOME, SELF-CARE Condition: Stable Departure-Patient Inst. Referrals: DAYDAY CARLOS MD (PCP/Family) Primary Care Physician Patient Instructions: Generalized Weakness (DC), Vertigo (a Type of Dizziness) (DC) Add. Discharge Instructions: Keep your already scheduled appointment with the physical therapist for next week Follow-up with your primary care provider for continuation of care and further evaluation as needed Emergency department focuses on treating and ruling out life-threatening diseases. Whenever possible, a diagnosis is given. However, most patients are given an impression based on their history, physical exam, and workup during your brief time in the ER. Information about probable diagnosis and other educational material has been provided. Please take the time to read and understand this information. It is very important that you follow up with a physician as discussed during the visit today. Failure to adhere to your follow-up instructions may lead to severe disability, injury, or so please make sure to keep your appointments or obtain one as requested. Please keep in mind the emergency department is not designed to your primary care or "family doctor" and nonurgent issues are best evaluated by an outpatient physician All discharge instructions reviewed with patient and/or family. Voiced understanding. ALEK MARROQUIN DO Jul 11, 2019 15:27
[2019-07-11 15:33] LABS: BILIRUBIN,URINE NEGATIVE (NEGATIVE); CLARITY,URINE CLEAR; COLOR,URINE YELLOW; GLUCOSE, URINE (UA) NEGATIVE (NEGATIVE); KETONES,URINE NEGATIVE (NEGATIVE); LEUKOCYTE ESTERASE ,URINE NEGATIVE (NEGATIVE); NITRITE,URINE NEGATIVE (NEGATIVE); PROTEIN,URINE NEGATIVE (NEGATIVE)
[2019-07-11 15:44] LABS: RBC,URINE RARE /HPF
[2019-07-11 15:45] LABS: AMORPHOUS SEDIMENT,UR FEW AMOR PHOSPHATE /LPF; BACTERIA,URINE TRACE /HPF; SQUAMOUS EPITHELIAL CELL,UR RARE /HPF
[2019-07-11 15:47] LABS: ALANINE AMINOTRANSFERASE 27 U/L (0-55); ALBUMIN 3.9 GM/DL (3.2-4.5); ALKALINE PHOSPHATASE 81 U/L (40-136); BILIRUBIN,TOTAL 0.4 MG/DL (0.1-1.0); BUN/CREATININE RATIO 18; CALCIUM 9.2 MG/DL (8.5-10.1); CARBON DIOXIDE 27 MMOL/L (21-32); CHLORIDE 96 MMOL/L (98-107); GFR ESTIMATED > 60; GLUCOSE 160 MG/DL (70-105); MAGNESIUM 2.1 MG/DL (1.6-2.4); POTASSIUM 3.9 MMOL/L (3.6-5.0); SODIUM 130 MMOL/L (135-145); TOTAL PROTEIN 5.9 GM/DL (6.4-8.2)
[2019-07-11 15:54] VITALS: BP_SYST 110; BP_SYST 121; BP_SYST 122; BP_DIAS 61; BP_DIAS 66; BP_DIAS 70
[2019-07-11 16:15] LABS: ANISOCYTOSIS SLIGHT; BAND NEUTROPHILS 7 %; BASOPHILS % (MANUAL) 0 %; EOSINOPHILS % (MANUAL) 0 %; LYMPHOCYTES % (MANUAL) 6 %; MONOCYTES % (MANUAL) 6 %; NEUTROPHILS % (MANUAL) 81 %
--- NOTE | 2019-07-11 16:33 | Diagnostic Imaging Report ---
PROCEDURE: CT head without contrast. TECHNIQUE: Multiple contiguous axial images were obtained through the brain without the use of intravenous contrast. Auto Exposure Controls were utilized during the CT exam to meet ALARA standards for radiation dose reduction. DATE: July 11, 2019. COMPARISON: CT head November 08, 2016. INDICATION: 88-year-old male, multiple falls during the past week. Dizziness. FINDINGS: There are areas of low-attenuation in the subcortical and periventricular white matter, likely reflecting advanced findings of chronic small vessel ischemic disease although are not technically specific. 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 There is proportional prominence of the ventricles and CSF spaces consistent with mild cerebral volume loss. There is no mass effect or midline shift. There is no acute intracranial hemorrhage. There is no abnormal extra-axial fluid collection. The visualized portions of the paranasal sinuses, mastoid air cells and middle ears are well aerated. IMPRESSION: 1. No identified acute intracranial abnormality. 2. Mild cerebral volume loss with probable advanced changes of chronic small vessel ischemic disease and remote prior left cerebellar infarct. Dictated by: Dictated on workstation # [id number]
--- NOTE | 2019-07-11 16:38 | Diagnostic Imaging Report ---
INDICATION: Multiple falls with chest pain. EXAMINATION: Frontal chest was obtained at 4:34 p.m. COMPARISON: 01/07/2018. FINDINGS: Heart and mediastinal silhouette are normal in appearance. Lungs appear clear. There is no pneumothorax or pleural fluid. IMPRESSION: Negative chest. Dictated by: Dictated on workstation # [id number]
[2019-07-11 17:14] VITALS: BP 124/75
--- OUTSIDE RECORDS SUMMARY | 2019-07-16 06:43 | XMS REPORT | Clinical Summary ---
Author [facility] Address Unknown Phone Unavailable Care Team Providers Care Cake Stripper Name Role Phone No Pcp, Na PCP Unavailable Source Comments Some departments are not documenting in the electronic medical record. If you d o not see the information that you expected, contact Release of Information in [email or web address] Information Management department at [phone] for further assistan ce in locating additional records.[facility] Allergies Not on File Medications Not on file Active Problems Problem Noted Date Elevated PSA Overview: PNBx (12/04/2015): No evidence of juancarlos lee; Dr. Quintero. Outside PSA Hx: PSA (12/03/2016) > 50.0 PSA (05/20/2016) = 31.4 PSA (11/20/2015) = 26.9 Social History Date Tobacco Use Types Packs/Day Years Used Never Assessed Sex Assigned at Date Recorded Not on file Industry Job Start Date Occupation Not on file Not on file Not on file Travel End Travel History Travel Start No recent travel history available. Last Filed Vital Signs Not on file Plan of Treatment Health Maintenance Due Date Last Done Comments DTAP/TDAP VACCINES (1 - 10/19/1942 Tdap) PHYSICAL (COMPREHENSIVE) 10/19/1949 EXAM SHINGLES RECOMBINANT 10/19/1981 VACCINE (1 of 2) PNEUMONIA (PCV13/PPSV23) 10/19/1996 VACCINES (1 of 2 - PCV13) INFLUENZA VACCINE 12/07/2018 Results Not on filefrom Last 3 Months Insurance Type Payer Benefit Subscriber ID Effective Phone Address Plan / Dates Group Medicare BCBS [place] [employer]BS xxxxxxxxxxxx [id number] SUPPLEMENT resent Medicare MEDICARE MEDICARE xxxxxxxxxx 1996-P PART A AND resent B Advance Directives Patient Direct Mail Manager Explanation Type Date Recorded Advance Directive/DPOA
--- OUTSIDE RECORDS SUMMARY | 2019-07-16 07:03 | XMS REPORT | CCD ---
Author Author Kenneth Carlos Organization Ale Carlos MD, [facility] Address [address] [place] [address] Phone Care Team Providers Care Vegetable Tier Name Role Phone Ale Carlos PP Unavailable CCM Unavailable Summary Purpose Interface Exchange Insurance Providers Payer name Policy type / Coverage type Covered constitution party ID Effective Begin Date Effective End Date WPS Medicare Part B Medicare Part B [id number] Unknown Unknown [facility] icare Part B [id number] Unknown Unk nown Family history Runs in the family Diagnosis Age At Onset No Family Disease Entered N/A Mother Diagnosis Age At Onset No Family Disease Entered N/A Father Diagnosis Age At Onset Heart disease Unknown Social History Social History Element Codes Description Effective Dates Alcohol history SNOMED CT: 419096013 Never drinks alcohol Quit in 200401/16/2019 [place] 10/14/19 18 Living arrangements Unknown House 01/11/2011 Number of adults in household Unknown 2 01/11/2011 Education level Unknown Post-Graduate PHD in chemistry 01/11/2011 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 Unknown Has never used illegal drugs 011 Allergies, Adverse Reactions, Alerts Substance Reaction Codes Entered Date Inactivated Date Status * NO KNOWN FOOD NAYE RGIES Unknown 04/19/2011 No Inactive Date Active Toradol RxNorm: 05591 03/05/2011 No Inactive Date Active Past Medical History Illness Codes Condition Status Onset Date Resolved Date Encounter for immuni zation ICD-9: V04.81 ICD-10: Z23 Active 01/23/2019 Unknown Encounter for genera l adult medical examination with abnormal findings ICD-9: V70.0 ICD-10: Z00.01 Active 01/16/2019 Unknown Cervicalgia ICD-9: 723.1 ICD-10: M54.2 Active 06/21/2017 Unknown Essential (primary) hypertension ICD-9: 401.1 ICD-10: I10 Active 03/21/2017 Unknown Alzheimer's disease with late onset ICD-9: 331.0 ICD-10: G30.1 Active 08/17/2018 Unknown 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 ICD-10: K21.9 Active 03/04/2015 Unknown Abrasion of left upp er arm, initial encounter ICD-9: 913.0 ICD-10: S40.812A Active 05/18/2018 Unknown 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 Active 05/18/2018 Unknown Dry mouth, unspecified ICD-9: 527.7 ICD-10: R68.2 Active 01/19/2018 Unknown Essential (primary) hypertension ICD-9: 401.9 ICD-10: I10 Active 12/24/2013 Unknown Irritable bowel synd nasir with constipation ICD-9: 564.1 ICD-10: K58.1 Active 07/01/2017 Unknown Other lesions of ora l mucosa ICD-9: 528.9 ICD-10: K13.79 Active 02/08/2018 Unknown Slow transit constip ation ICD-9: 564.01 ICD-10: K59.01 Active 07/20/2017 Unknown Acute pharyngitis, u nspecified ICD-9: 462 ICD-10: J02.9 Active 01/13/2018 Unknown Candidal stomatitis ICD- 9: 112.0 ICD-10: B37.0 Active 01/12/2018 Unknown Cough ICD-9: 786.2 ICD-10: R05 Active 11/18/2016 Unknown Generalized anxiety disorder ICD-9: 300.02 ICD-10: F41.1 Active 05/29/2014 Unknown Major depressive dis order, single episode, 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 ICD-10: F32.0 Active 06/06/2014 Unknown Malignant neoplasm o f prostate ICD-9: 185 ICD-10: C61 Active 11/14/2017 Unknown Underweight ICD-9: 783.22 ICD-10: R63.6 Active 10/13/2017 Unknown Dysuria ICD-9: 788.1 ICD-10: R30.0 Active 09/26/2017 Unknown Gastroparesis ICD-9: 536.3 ICD-10: K31.84 Active 07/20/2017 Unknown Other abnormal glucose ICD-9: 790.29 ICD-10: R73.09 Active 09/12/2017 Unknown Other fatigue ICD-9: 780.79 ICD-10: R53.83 Active 09/09/2017 Unknown Gas pain ICD-9: 787.3 ICD-10: R14.1 Active 06/21/2017 Unknown Pain in thoracic spine ICD-9: 724.1 ICD-10: M54.6 Active 06/21/2017 Unknown Unsteadiness on feet ICD-9: 781.2 ICD-10: R26.81 Active 06/21/2017 Unknown Other allergic rhinitis ICD-9: 477.8 ICD-10: J30.89 Active 01/20/2016 Unknown Other hypotension ICD-9: 458.8 ICD-10: I95.89 Active 01/25/2017 Unknown Acute recurrent maxi llary sinusitis ICD-9: 461.0 ICD-10: J01.01 Active 12/20/2016 Unknown Acute recurrent ethm oidal sinusitis ICD-9: 461.2 ICD-10: J01.21 Active 12/01/2016 Unknown Bronchitis, not spec ified as acute or chronic ICD-9: 490 ICD-10: J40 Active 11/18/2016 Unknown Candidal esophagitis ICD-9: 112.84 ICD-10: B37.81 Active 11/18/2016 Unknown Mild cognitive impai rment, so stated ICD-9: 331.83 ICD-10: G31.84 Active 05/29/2014 Unknown Olecranon bursitis, right elbow ICD-9: 726.33 ICD-10: M70.21 Active 02/16/2016 Unknown Hypo-osmolality and hyponatremia ICD-9: 276.1 ICD-10: E87.1 Active 02/04/2016 Unknown Generalized abdomina l tenderness ICD-9: 789.67 ICD-10: R10.817 Active 01/25/2016 Unknown Encounter for immuni zation ICD-9: V03.9 ICD-10: Z23 Active 05/05/2015 Unknown Mixed hyperlipidemia ICD-9: 272.4 ICD-10: E78.2 Active 01/24/2012 Unknown IRRITABLE COLON ICD-9: 564.1 Active 12/04/2014 Unknown Abdominal pain ICD-9: 789.00 Active 09/24/2014 Unknown Osteoarthritis ICD-9: 715.90 Active 01/24/2012 Unknown Depression Unknown Active 06/06/2014 Unknow n Depression ICD-9: 311 Active 06/06/2014 Unknow n Dizziness ICD-9: 780.4 Active 06/06/2014 Unknow n Urinary frequency ICD-9: 788.41 Active 06/06/2014 Unknown GENERALIZED ANXIETY DISEASE ICD-9: 300.02 Active Unknown Mild cognitive impai rment with memory loss ICD-9: 331.83 Active 05/29/2014 Unknown NOCTURIA ICD-9: 788.43 Active 05/23/2014 Unknow n Pneumonia ICD-9: 486 Active 05/20/2014 Unknow n COUGH ICD-9: 786.2 Active 02/08/2014 Unknow n ESSENTIAL HYPERTENSION ICD-9: 401.9 Active 12/24/2013 Unknown Nasal congestion ICD-9: 478.19 Active 11/20/2013 Unknown Seasonal allergies ICD- 9: 477.9 Active 11/20/2013 Unknown ABNORMAL LOSS OF WEIGHT ICD-9: 783.21 Active 10/30/2013 Unknown Hyponatremia ICD-9: 276.1 Active 10/30/2013 Unknown MALAISE AND FATIGUE ICD- 9: 780.79 Active 10/30/2013 Unknown Acute maxillary sinu sitis ICD-9: 461.0 Active 06/2013 Unknown Coronary artery disease ICD-9: 414.00 Active 06/18/2013 Unknown Encounter for long-t erm (current) use of other medications ICD-9: V58.69 Active 02/19/2013 Unknown Leukopenia ICD-9: 288.50 Active 02/19/2013 Unknow n Osteoarthritis Unknown Active 01/24/2012 Unknow n HYPERLIPIDEMIA ICD-9: 272.4 Active 01/24/2012 Unknown BPH W URINARY OBS/LUTS ICD-9: 600.01 Active 12/20/2011 Unknown Lump in the groin ICD-9: 789.30 Active 12/09/2011 Unknown DIVERTICULOSIS, COLON ICD-9: 562.10 Active 04/19/2011 Unknown 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 Active 04/08 Unknown Laceration of finger , index ICD-9: 883.0 Active 02/08 Unknown Hypertension Unknown Active 03/01/2011 Unknow n Need for shingles va ccine ICD-9: V04.89 Active Unknown VACCIN STREP PNEUMONIAE ICD-9: V03.82 Active 02/16/2011 Unknown VACCIN FOR INFLUENZA ICD-9: V04.81 Active 02/09/2011 Unknown Bruising ICD-9: 924.9 Active 02/01/2011 Unknow n HYDROCELE ICD-9: 603.9 Active 02/01/2011 Unknow n Testicular pain ICD-9: 608.9 Active 01/27/2011 Unknown Arm bruise ICD-9: 923.9 Active 01/26/2011 Unknow n Blood Transfusions Unknown Active 01/06/2011 Unknown Hyperlipidemia Unknown Active 01/06/2011 Unknow n Stroke Unknown Active 01/06/2011 Unknow n DIARRHEA ICD-9: 787.91 Active 01/06/2011 Unknow n Elevated liver funct ion tests ICD-9: 790.6 Active 12/09 Unknown Problems Condition Codes Effectiv e Dates Condition Status Encounter for immuni zation ICD-9: V04.81 ICD-10: Z23 01/23/2019 Active Encounter for genera l adult medical examination with abnormal findings ICD-9: V70.0 ICD-10: Z00.01 01/16/2019 Active Cervicalgia ICD-9: 723.1 ICD-10: M54.2 06/21/2017 Active Essential (primary) hypertension ICD-9: 401.1 ICD-10: I10 03/21/2017 Active Alzheimer's disease with late onset ICD-9: 331.0 ICD-10: G30.1 08/17/2018 Active 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 ICD-10: K21.9 03/04/2015 Active Abrasion of left upp er arm, initial encounter ICD-9: 913.0 ICD-10: S40.812A 05/18/2018 Active 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 05/18/2018 Active Dry mouth, unspecified ICD-9: 527.7 ICD-10: R68.2 01/19/2018 Active Essential (primary) hypertension ICD-9: 401.9 ICD-10: I10 12/24/2013 Active Irritable bowel synd nasir with constipation ICD-9: 564.1 ICD-10: K58.1 07/01/2017 Active Other lesions of ora l mucosa ICD-9: 528.9 ICD-10: K13.79 02/08/2018 Active Slow transit constip ation ICD-9: 564.01 ICD-10: K59.01 07/20/2017 Active Acute pharyngitis, u nspecified ICD-9: 462 ICD-10: J02.9 01/13/2018 Active Candidal stomatitis ICD- 9: 112.0 ICD-10: B37.0 01/12/2018 Active Cough ICD-9: 786.2 ICD-10: R05 11/18/2016 Active Generalized anxiety disorder ICD-9: 300.02 ICD-10: F41.1 05/29/2014 Active Major depressive dis order, single episode, 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 ICD-10: F32.0 06/06/2014 Active Malignant neoplasm o f prostate ICD-9: 185 ICD-10: C61 11/14/2017 Active Underweight ICD-9: 783.22 ICD-10: R63.6 10/13/2017 Active Dysuria ICD-9: 788.1 ICD-10: R30.0 09/26/2017 Active Gastroparesis ICD-9: 536.3 ICD-10: K31.84 07/20/2017 Active Other abnormal glucose ICD-9: 790.29 ICD-10: R73.09 09/12/2017 Active Other fatigue ICD-9: 780.79 ICD-10: R53.83 09/09/2017 Active Gas pain ICD-9: 787.3 ICD-10: R14.1 06/21/2017 Active Pain in thoracic spine ICD-9: 724.1 ICD-10: M54.6 06/21/2017 Active Unsteadiness on feet ICD-9: 781.2 ICD-10: R26.81 06/21/2017 Active Other allergic rhinitis ICD-9: 477.8 ICD-10: J30.89 01/20/2016 Active Other hypotension ICD-9: 458.8 ICD-10: I95.89 01/25/2017 Active Acute recurrent maxi llary sinusitis ICD-9: 461.0 ICD-10: J01.01 12/20/2016 Active Acute recurrent ethm oidal sinusitis ICD-9: 461.2 ICD-10: J01.21 12/01/2016 Active Bronchitis, not spec ified as acute or chronic ICD-9: 490 ICD-10: J40 11/18/2016 Active Candidal esophagitis ICD-9: 112.84 ICD-10: B37.81 11/18/2016 Active Mild cognitive impai rment, so stated ICD-9: 331.83 ICD-10: G31.84 05/29/2014 Active Olecranon bursitis, right elbow ICD-9: 726.33 ICD-10: M70.21 02/16/2016 Active Hypo-osmolality and hyponatremia ICD-9: 276.1 ICD-10: E87.1 02/04/2016 Active Generalized abdomina l tenderness ICD-9: 789.67 ICD-10: R10.817 01/25/2016 Active Encounter for immuni zation ICD-9: V03.9 ICD-10: Z23 05/05/2015 Active Mixed hyperlipidemia ICD-9: 272.4 ICD-10: E78.2 01/24/2012 Active IRRITABLE COLON ICD-9: 564.1 12/04/2014 Active Abdominal pain ICD-9: 789.00 09/24/2014 Active Osteoarthritis ICD-9: 715.90 01/24/2012 Active Depression Unknown 06/06/2014 Active Depression ICD-9: 311 06/06/2014 Active Dizziness ICD-9: 780.4 06/06/2014 Active Urinary frequency ICD-9: 788.41 06/06/2014 Active GENERALIZED ANXIETY DISEASE ICD-9: 300.02 05/29/2014 Active Mild cognitive impai rment with memory loss ICD-9: 331.83 05/29/2014 Active NOCTURIA ICD-9: 788.43 05/23/2014 Active Pneumonia ICD-9: 486 05/20/2014 Active COUGH ICD-9: 786.2 02/08/2014 Active ESSENTIAL HYPERTENSION ICD-9: 401.9 12/24/2013 Active Nasal congestion ICD-9: 478.19 11/20/2013 Active Seasonal allergies ICD- 9: 477.9 11/20/2013 Active ABNORMAL LOSS OF WEIGHT ICD-9: 783.21 10/30/2013 Active Hyponatremia ICD-9: 276.1 10/30/2013 Active MALAISE AND FATIGUE ICD- 9: 780.79 10/30/2013 Active Acute maxillary sinu sitis ICD-9: 461.0 10/08/2013 Active Coronary artery disease ICD-9: 414.00 06/18/2013 Active Encounter for long-t erm (current) use of other medications ICD-9: V58.69 02/19/2013 Active Leukopenia ICD-9: 288.50 02/19/2013 Active Osteoarthritis Unknown 01/24/2012 Active HYPERLIPIDEMIA ICD-9: 272.4 01/24/2012 Active BPH W URINARY OBS/LUTS ICD-9: 600.01 12/20/2011 Active Lump in the groin ICD-9: 789.30 12/09/2011 Active DIVERTICULOSIS, COLON ICD-9: 562.10 04/19/2011 Active 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 04/19/2011 Active Laceration of finger , index ICD-9: 883.0 03/08/2011 Active Hypertension Unknown 03/01/2011 Active Need for shingles va ccine ICD-9: V04.89 02/25/2011 Active VACCIN STREP PNEUMONIAE ICD-9: V03.82 02/16/2011 Active VACCIN FOR INFLUENZA ICD-9: V04.81 02/09/2011 Active Bruising ICD-9: 924.9 02/01/2011 Active HYDROCELE ICD-9: 603.9 02/01/2011 Active Testicular pain ICD-9: 608.9 01/27/2011 Active Arm bruise ICD-9: 923.9 01/26/2011 Active Blood Transfusions Unknown 01/06/2011 Active Hyperlipidemia Unknown 01/06/2011 Active Stroke Unknown 01/06/2011 Active DIARRHEA ICD-9: 787.91 01/06/2011 Active Elevated liver funct ion tests ICD-9: 790.6 01/06/2011 Active Medications Medication Codes Instruc tions Start Date Stop Date Sta tus Fill Instructions Zantac 150 mg tablet RxNorm: 252855 Tablet(s) 1 TABLET(S) PO QAM 01/16/2019 No Stop Date Active clopidogrel 75 mg ta blet RxNorm: 978526 TAKE 1 TABLET BY MOUT H EVERY DAY 12/12/2018 06/09/2019 Ac tive lisinopril 20 mg tablet RxNorm: 344429 TAKE 1 TABLET DAILY 11/14/2018 05/12/2019 Active mirtazapine 15 mg ta blet RxNorm: 090264 TAKE ONE TABLET BY MO UTH EVERY DAY 10/25/2018 10/19/2019 Ac tive Namenda 10 mg tablet RxNorm: 220134 Tablet(s) TAKE 1 TABLET BY MOUTH TWICE D AILY. 08/18/2018 No Stop Date Active clopidogrel 75 mg ta blet RxNorm: 549426 TAKE 1 TABLET BY MOUT H EVERY DAY 08/14/2018 12/11/2018 In active amlodipine 10 mg tablet RxNorm: 796888 TAKE 1 TABLET BY MOUTH EVERY DAY 07/14/2018 07/23/2018 In active clopidogrel 75 mg ta blet RxNorm: 273120 TAKE 1 TABLET BY MOUT H EVERY DAY 06/23/2018 12/19/2018 In active Zantac 150 mg tablet RxNorm: 817979 1 TABLET(S) PO QAM 06/12/2018 01/07/2019 Inactive lisinopril 20 mg tablet RxNorm: 341897 TAKE 1 TABLET DAILY 06/05/2018 07/23/2018 Inactive triamterene 37.5 mg- hydrochlorothiazide 25 mg tablet RxNorm: 216979 1 Tablet(s) PO daily 05/18/2018 12/13/2018 Inactive cetirizine 10 mg tablet RxNorm: 7428214 TABLET(S) 1 TABLET(S) PO DAILY TO TAKE I NSTEAD OF THE CLARITIN 03/13/2018 02/05/2019 Active amlodipine 10 mg tablet RxNorm: 505118 TAKE 1 TABLET BY MOUTH EVERY DAY 03/09/2018 07/23/2018 In active fluticasone 50 mcg/a ctuation nasal spray,suspension RxNorm: 7126730 1 [place] NASAL BID 02/08/2018 02/07/2018 Inactive fluticasone 50 mcg/a ctuation nasal spray,suspension RxNorm: 8047511 1 [place] NASAL BID 02/08/2018 01/15/2019 Inactive Trulance 3 mg tablet RxNorm: 9064305 1 Tablet(s) PO QAM 01/19/2018 08/16/2018 Inactive cefdinir 300 mg capsule RxNorm: 213337 1 Capsule(s) PO BID 12/28/2017 01/03/2018 Inactive cefdinir 300 mg capsule RxNorm: 044320 1 Capsule(s) PO BID 12/28/2017 12/27/2017 Inactive clopidogrel 75 mg ta blet RxNorm: 693763 TAKE 1 TABLET BY MOUT H EVERY DAY 12/26/2017 06/22/2018 In active Namenda 10 mg tablet RxNorm: 814603 Tablet(s) TAKE 1 TABLET BY MOUTH TWICE D AILY. 12/15/2017 08/17/2018 Inactive Robinul 1 mg tablet RxNorm: 232454 1/2 Tablet(s) PO AC & HS 12/12/2017 12/14/2017 Inactive Robinul 1 mg tablet RxNorm: 175092 1/2 Tablet(s) PO AC & HS 12/12/2017 12/11/2017 Inactive donepezil 10 mg tablet RxNorm: 549447 1 TABLET(S) PO DAILY TAKE 1 TABLET BY MO UTH ONCE DAILY 12/08/2017 12/11/2017 Inactive Patient requests 90 days supply lisinopril 20 mg tablet RxNorm: 410332 TAKE 1 TABLET DAILY 12/05/2017 01/11/2018 Inactive Cymbalta 30 mg capsu le,delayed release RxNorm: 968172 1 Capsule(s) PO daily 12/05/2017 12/04/2017 In active Cymbalta 30 mg capsu le,delayed release RxNorm: 287529 1 Capsule(s) PO daily 12/05/2017 12/05/2017 In active Trulance 3 mg tablet RxNorm: 5011345 1 Tablet(s) PO daily 11/14/2017 12/13/2017 Inactive Linzess 145 mcg capsule RxNorm: 7629007 1 Capsule(s) PO daily 10/28/2017 12/14/2017 Inactive Zantac 150 mg tablet RxNorm: 341991 1 Tablet(s) PO QAM 10/13/2017 01/04/2018 Inactive mirtazapine 15 mg ta blet RxNorm: 663426 TAKE ONE TABLET BY MO UTH EVERY DAY 09/29/2017 09/23/2018 In active Mobic 15 mg tablet RxNorm: 784223 1/2 TABLET(S) DAILY 09/26/2017 12/19/2017 Inactive lisinopril 20 mg tablet RxNorm: 828691 1/2 Tablet(s) daily 09/13/2017 01/12/2018 Inactive amlodipine 10 mg tablet RxNorm: 472335 TAKE 1 TABLET BY MOUTH EVERY DAY 09/09/2017 08/07/2018 In active Reglan 5 mg tablet RxNorm: 062891 1/2 Tablet(s) PO TID may increase up to a full pill three times daily as needed for poor GI motility 07/20/2017 09/17/2017 Inactive Protonix 40 mg table t,delayed release RxNorm: 727792 1 Tablet(s) PO daily 07/04/2017 01/15/2019 In active clopidogrel 75 mg ta blet RxNorm: 791227 TAKE 1 TABLET BY MOUT H EVERY DAY 06/20/2017 12/16/2017 In active cetirizine 10 mg tablet RxNorm: 9429434 TABLET(S) 1 TABLET(S) PO DAILY TO TAKE I NSTEAD OF THE CLARITIN 06/06/2017 03/12/2018 Inactive lisinopril 20 mg tablet RxNorm: 779861 TAKE 1 TABLET DAILY 05/30/2017 09/12/2017 Inactive Mobic 15 mg tablet RxNorm: 021996 1/2 TABLET(S) DAILY 03/21/2017 09/16/2017 Inactive donepezil 10 mg tablet RxNorm: 463854 1 Tablet(s) PO daily TAKE 1 TABLET BY MO [facility] ONCE DAILY 02/28/2017 11/24/2017 Inactive Patient requests 90 days supply Requip 0.25 mg tablet RxNorm: 016972 1 TABLET(S) PO BID 01/24/2017 01/04/2018 Inactive Patient requests 90 days supply clopidogrel 75 mg ta blet RxNorm: 830275 TAKE 1 TABLET BY MOUT H EVERY DAY 12/23/2016 06/19/2017 In active lisinopril 20 mg tablet RxNorm: 907266 TAKE 1 TABLET DAILY 11/26/2016 05/24/2017 Inactive Kenalog 40 mg/mL hugo pension for injection RxNorm: 9323510 Milliliter(s) Inj 11/25/2016 11/25/2016 In active cefdinir 300 mg capsule RxNorm: 705965 1 Capsule(s) PO BID 11/23/2016 11/27/2016 Inactive cefdinir 300 mg capsule RxNorm: 329545 1 Capsule(s) PO BID 11/23/2016 11/22/2016 Inactive nystatin 100,000 uni t/mL oral suspension RxNorm: 259884 5 Milliliter(s) PO QI D 11/18/2016 11/27/2016 In active azithromycin 250 mg tablet RxNorm: 305593 1 Tablet(s) PO UD 2 p ills on day #1 then one pill daily x 4 more days 11/18/2016 11/22/2016 Inactive Mobic 15 mg tablet RxNorm: 702931 1/2 TABLET(S) DAILY 10/28/2016 03/20/2017 Inactive citalopram 10 mg tablet RxNorm: 007555 TAKE 1 TABLET BY MOUTH EVERY DAY 10/07/2016 03/05/2017 In active Patient requests 90 days supply mirtazapine 15 mg ta blet RxNorm: 853027 TAKE ONE TABLET BY MO UT EVERY DAY 10/06/2016 09/28/2017 In active mirtazapine 15 mg ta blet RxNorm: 317514 TAKE ONE TABLET BY MO UTH EVERY DAY 10/05/2016 10/05/2016 In active Patient requests 90 days supply amlodipine 10 mg tablet RxNorm: 358893 TAKE 1 TABLET BY MOUTH EVERY DAY 09/14/2016 01/24/2017 In active clopidogrel 75 mg ta blet RxNorm: 947192 TAKE 1 TABLET BY MOUT H EVERY DAY 06/28/2016 12/22/2016 In active lisinopril 20 mg tablet RxNorm: 535416 TAKE 1 TABLET DAILY 05/31/2016 11/25/2016 Inactive donepezil 10 mg tablet RxNorm: 583680 TAKE 1 TABLET BY MOUTH ONCE DAILY 05/11/2016 11/06/2016 In active donepezil 10 mg tablet RxNorm: 132516 TAKE 1 TABLET BY MOUTH ONCE DAILY 04/26/2016 02/28/2017 In active Mobic 15 mg tablet RxNorm: 328709 1/2 Tablet(s) daily 04/19/2016 10/15/2016 Inactive citalopram 10 mg tablet RxNorm: 492651 TAKE 1 TABLET BY MOUTH EVERY DAY 04/06/2016 04/25/2016 In active cetirizine 10 mg tablet RxNorm: 3237046 Tablet(s) 1 TABLET(S) PO DAILY TO TAKE I NSTEAD OF THE CLARITIN 03/30/2016 02/22/2017 Inactive amlodipine 10 mg tablet RxNorm: 629275 TAKE 1 TABLET BY MOUTH EVERY DAY 03/08/2016 01/24/2017 In active amlodipine 10 mg tablet RxNorm: 378978 1 Tablet(s) PO daily TAKE 1 TABLET BY MO UTH ONCE DAILY 03/03/2016 03/07/2016 Inactive Requip 0.25 mg tablet RxNorm: 448187 1 Tablet(s) PO BID 03/03/2016 09/13/2016 Inactive Mobic 15 mg tablet RxNorm: 317620 1 Tablet(s) daily not refilled on a 02/23/2016 04/18/2016 In active cetirizine 10 mg tablet RxNorm: 0603175 1 TABLET(S) PO DAILY TO TAKE INSTEAD OF THE CLARITIN 02/19/2016 03/19/2016 Inactive lisinopril 20 mg tablet RxNorm: 198061 TAKE 1 TABLET DAILY 02/18/2016 05/17/2016 Inactive Namenda 10 mg tablet RxNorm: 853596 Tablet(s) TAKE 1 TABLET BY MOUTH TWICE D AILY. 02/17/2016 12/14/2017 Inactive lisinopril 20 mg tablet RxNorm: 224701 TAKE 1 TABLET DAILY 01/23/2016 01/24/2017 Inactive cetirizine 10 mg tablet RxNorm: 0653145 1 Tablet(s) PO daily to take instead of the claritin 01/21/2016 02/18/2016 Inactive amlodipine 10 mg tablet RxNorm: 431270 1 Tablet(s) PO daily TAKE 1 TABLET BY MO UTH ONCE DAILY 12/02/2015 03/02/2016 Inactive clopidogrel 75 mg ta blet RxNorm: 299792 TAKE 1 TABLET BY MOUT H EVERY DAY 11/25/2015 05/22/2016 In active Mobic 15 mg tablet RxNorm: 818182 TAKE(1/2) TABLET DAILY. 11/17/2015 02/22/2016 Inactive lisinopril 20 mg tablet RxNorm: 874731 TAKE 1 TABLET DAILY 11/17/2015 01/15/2016 Inactive Mobic 15 mg tablet RxNorm: 573661 1/2 Tablet(s) PO daily TAKE (1/2) TABLET DAILY. 11/12/2015 11/16/2015 Inactive citalopram 10 mg tablet RxNorm: 810882 TAKE 1 TABLET BY MOUTH EVERY DAY 10/27/2015 04/05/2016 In active Requip 0.25 mg tablet RxNorm: 279600 1 Tablet(s) PO BID 10/15/2015 02/11/2016 Inactive Requip 0.25 mg tablet RxNorm: 252725 1 Tablet(s) PO BID 10/15/2015 10/14/2015 Inactive mirtazapine 15 mg ta blet RxNorm: 123842 1 Tablet(s) PO daily 09/08/2015 10/01/2016 Inactive donepezil 10 mg tablet RxNorm: 977083 TAKE 1 TABLET DAILY 09/01/2015 04/25/2016 Inactive amlodipine 10 mg tablet RxNorm: 320567 1 Tablet(s) PO daily TAKE 1 TABLET BY MO UTH ONCE DAILY 08/18/2015 12/01/2015 Inactive clopidogrel 75 mg ta blet RxNorm: 813055 1 Tablet(s) PO daily TAKE 1 TABLET DAILY 05/20/2015 11/24/2015 In active Mobic 15 mg tablet RxNorm: 890399 Tablet(s) TAKE (1/2) TABLET DAILY. 04/23/2015 10/19/2015 In active lisinopril 20 mg tablet RxNorm: 306892 TAKE 1 TABLET DAILY 04/22/2015 11/16/2015 Inactive Mobic 15 mg tablet RxNorm: 641583 TAKE (1/2) TABLET DAILY. 04/22/2015 04/22/2015 Inactive sulfamethoxazole 400 mg-trimethoprim 80 mg tablet RxNorm: 202065 1/2 Tablet(s) PO nancy y 03/11/2015 04/09/2015 Inactive Vesicare 5 mg tablet RxNorm: 127060 1 Tablet(s) PO 03/11/2015 05/09/2015 Inactive Protonix 40 mg table t,delayed release RxNorm: 099393 1 Tablet(s) PO BID 03/05/2015 09/30/2015 In active ok to change from [address] Archana rivera clopidogrel 75 mg ta blet RxNorm: 417430 1 Tablet(s) PO daily TAKE 1 TABLET DAILY 02/20/2015 05/19/2015 In active Namenda 10 mg tablet RxNorm: 998592 Tablet(s) TAKE 1 TABLET BY MOUTH TWICE D AILY. 01/22/2015 02/16/2016 Inactive amlodipine 10 mg tablet RxNorm: 953126 TAKE 1 TABLET BY MOUTH ONCE DAILY 01/14/2015 08/17/2015 In active donepezil 10 mg tablet RxNorm: 327417 TAKE 1 TABLET DAILY 01/06/2015 08/31/2015 Inactive Levsin 0.125 mg tablet RxNorm: 4196221 1 Tablet(s) PO QID as needed FOR ABD REJI N 11/05/2014 12/03/2014 In active Mobic 15 mg tablet RxNorm: 000541 1/2 Tablet(s) daily TAKE (1/2) TABLET DA MOIZ. 10/01/2014 04/21/2015 Inactive ciprofloxacin 500 mg tablet RxNorm: 059747 1 Tablet(s) PO BID 09/27/2014 10/01/2014 Inactive Flagyl 500 mg tablet RxNorm: 348853 1 Tablet(s) PO TID 09/27/2014 10/03/2014 Inactive take probiotic BID donepezil 10 mg tablet RxNorm: 154168 1/2 Tablet(s) PO BID 09/24/2014 01/05/2015 Inactive lisinopril 20 mg tablet RxNorm: 750453 TAKE 1 TABLET DAILY 09/05/2014 04/21/2015 Inactive amlodipine 10 mg tablet RxNorm: 061523 1 Tablet(s) PO daily 09/02/2014 12/30/2014 Inactive mirtazapine 15 mg ta blet RxNorm: 127561 1 Tablet(s) PO daily 08/28/2014 09/07/2015 Inactive donepezil 10 mg tablet RxNorm: 678863 1 Tablet(s) PO daily 08/28/2014 09/23/2014 Inactive citalopram 10 mg tablet RxNorm: 729158 1 Tablet(s) PO daily 08/28/2014 03/25/2015 Inactive citalopram 10 mg tablet RxNorm: 249854 1 Tablet(s) PO daily 08/07/2014 08/27/2014 Inactive citalopram 10 mg tablet RxNorm: 058329 1 Tablet(s) PO daily 08/07/2014 08/06/2014 Inactive Flagyl 500 mg tablet RxNorm: 857416 1 Tablet(s) PO TID 08/02/2014 08/01/2014 Inactive take probiotic BID Flagyl 500 mg tablet RxNorm: 530637 1 Tablet(s) PO TID 08/02/2014 08/08/2014 Inactive take probiotic BID tamsulosin ER 0.4 mg capsule,extended release 24 hr RxNorm: 471513 1 Capsule(s) PO QHS 06/06/2014 03/10/2015 Inactive TAKE AT BEDTIME escitalopram 5 mg ta blet RxNorm: 637266 1 Tablet(s) PO QPM 06/06/2014 08/06/2014 Inactive doxycycline hyclate 100 mg tablet RxNorm: 956130 1 Tablet(s) PO BID 05/31/2014 05/30/2014 Inactive doxycycline hyclate 100 mg tablet RxNorm: 704652 1 Tablet(s) PO BID 05/31/2014 06/06/2014 Inactive please deliver if not picked by 3pm Aricept 5 mg tablet RxNorm: 078714 1 Tablet(s) PO BID 05/29/2014 08/27/2014 Inactive losartan 50 mg tablet RxNorm: 673369 1/2 Tablet(s) PO daily 05/29/2014 12/28/2015 Inactive clopidogrel 75 mg ta blet RxNorm: 656204 1 Tablet(s) PO daily 05/27/2014 05/26/2014 Inactive Mobic 15 mg tablet RxNorm: 870699 TAKE (1/2) TABLET DAILY. 05/27/2014 09/30/2014 Inactive clopidogrel 75 mg ta blet RxNorm: 030486 TAKE 1 TABLET DAILY 05/27/2014 02/19/2015 Inactive Mobic 15 mg tablet RxNorm: 033007 1/2 Tablet(s) PO daily TAKE (1/2) TABLET DAILY. 05/27/2014 05/26/2014 Inactive prednisone 20 mg tablet RxNorm: 719767 1 Tablet(s) PO BID 05/21/2014 05/25/2014 Inactive albuterol sulfate 2. 5 mg/0.5 mL solution for nebulization RxNorm: 281733 1 inhale INH Q4H as needed 05/21/2014 09/01/2015 Inactive prednisone 20 mg tablet RxNorm: 205017 1 Tablet(s) PO BID 05/21/2014 05/20/2014 Inactive cefdinir 300 mg capsule RxNorm: 266616 1 Capsule(s) PO BID 05/20/2014 05/26/2014 Inactive Zithromax Z-Dequan 250 mg tablet RxNorm: 627394 1 Tablet(s) PO UD 05/20/2014 05/24/2014 Inactive zpack lorazepam 0.5 mg tablet RxNorm: 528666 1/2 to 1 Tablet(s) PO Q8 PRN as needed 04/30/2014 06/05/2014 In active Namenda 10 mg tablet RxNorm: 718856 TAKE 1 TABLET BY MOUTH TWICE DAILY. 04/15/2014 01/21/2015 In active Namenda 10 mg tablet RxNorm: 115958 1 Tablet(s) PO BID 04/15/2014 04/14/2014 Inactive losartan 50 mg tablet RxNorm: 292436 1 Tablet(s) PO daily 03/25/2014 05/28/2014 Inactive Protonix 40 mg table t,delayed release RxNorm: 917940 1 Tablet(s) PO QPM 03/21/2014 06/18/2014 In active ok to change from [address] Archana rivera fluticasone 50 mcg/a ctuation nasal spray,suspension RxNorm: 436289 1 Fife NASAL BID 03/04/2014 09/29/2014 Inactive Protonix 20 mg table t,delayed release RxNorm: 460166 1 Tablet(s) PO QPM 02/08/2014 03/20/2014 In active fluticasone 50 mcg/a ctuation nasal spray,suspension RxNorm: 000449 1 [place] NASAL BID 01/30/2014 03/03/2014 Inactive fluticasone 50 mcg/a ctuation nasal spray,suspension RxNorm: 704180 1 [place] NASAL BID 12/24/2013 01/29/2014 Inactive fluticasone 50 mcg/a ctuation nasal spray,suspension RxNorm: 664726 1 [place] NASAL BID 11/20/2013 12/23/2013 Inactive doxycycline hyclate 100 mg capsule RxNorm: 1157443 1 Capsule(s) PO BID 10/08/2013 10/17/2013 In active doxycycline hyclate 100 mg capsule RxNorm: 1538807 capsule oral 10/08/2013 10/29/2013 Inactive fluticasone 50 mcg/a ctuation nasal spray,suspension RxNorm: 577300 spray,suspension nasl 10/08/2013 11/19/2013 Inactive fluticasone 50 mcg/a ctuation nasal spray,suspension RxNorm: 267980 1 [place]ife NASAL BID Nasal spray- use twice daily, one spray per nostril twice daily, after 30 minutes, rinse out nose with saline spray. 10/08/2013 10/29/2013 Inactive mirtazapine 7.5 mg t ablet RxNorm: 249637 1/2 Tablet(s) PO daily 08/30/2013 08/27/2014 Inactive lorazepam 0.5 mg tablet RxNorm: 065415 1/2 Tablet(s) PO Q8 PRN 08/21/2013 04/29/2014 Inactive Aricept 5 mg tablet RxNorm: 069644 Tablet(s) PO TAKE 1 TABLET DAILY 08/21/2013 05/28/2014 In active Plavix 75 mg tablet RxNorm: 930366 Tablet(s) PO TAKE 1 TABLET DAILY 05/24/2013 12/04/2014 In active clopidogrel 75 mg ta blet RxNorm: 268181 tablet oral 05/24/2013 05/26/2014 Inactive Plavix 75 mg tablet RxNorm: 151559 1 Tablet(s) PO daily 05/23/2013 05/23/2013 Inactive meloxicam 15 mg tablet RxNorm: 900661 tablet oral 04/26/2013 03/25/2014 Inactive Mobic 15 mg tablet RxNorm: 800263 Tablet(s) PO TAKE (1/2) TABLET DAILY. 04/26/2013 05/26/2014 In active Mobic 15 mg tablet RxNorm: 504729 1/2 Tablet(s) PO daily 04/25/2013 04/25/2013 Inactive lisinopril 20 mg tablet RxNorm: 162341 1 Tablet(s) PO 04/04/2013 03/24/2014 Inactive finasteride 5 mg tablet RxNorm: 174909 tablet oral 03/22/2013 09/01/2015 Inactive lisinopril 10 mg tablet RxNorm: 729226 1 Tablet(s) PO daily 02/14/2013 04/03/2013 Inactive donepezil 5 mg tablet RxNorm: 744873 tablet oral 02/07/2013 12/24/2013 Inactive Influenza Virus Vacc ine 0.5 mL RxNorm: IM 02/06/2013 02/06/2013 Inactive Aricept 5 mg tablet RxNorm: 449989 1 Tablet(s) PO daily 02/06/2013 08/04/2013 Inactive tamsulosin ER 0.4 mg capsule,extended release 24 hr RxNorm: 220233 capsule,extended release 24hr oral 12/21/2012 06/05/2014 Inactive Plavix 75 mg tablet RxNorm: 147061 1 Tablet(s) PO daily 12/05/2012 05/03/2013 Inactive lorazepam 0.5 mg tablet RxNorm: 615904 1/2 Tablet(s) PO Q8 PRN 11/14/2012 08/20/2013 Inactive lisinopril 10 mg tablet RxNorm: 349014 1 Tablet(s) PO daily 08/08/2012 02/03/2013 Inactive Aricept 5 mg tablet RxNorm: 913558 1 Tablet(s) PO daily 08/08/2012 02/03/2013 Inactive Plavix 75 mg tablet RxNorm: 663724 1 Tablet(s) PO daily 07/04/2012 11/30/2012 Inactive Mobic 15 mg tablet RxNorm: 366577 1/2 Tablet(s) PO daily 03/20/2012 04/13/2013 Inactive Namenda 10 mg tablet RxNorm: 832804 1 Tablet(s) PO BID 02/22/2012 04/11/2014 Inactive lorazepam 0.5 mg tablet RxNorm: 420793 1/2 Tablet(s) PO Q8 PRN 02/02/2012 11/13/2012 Inactive lisinopril 10 mg tablet RxNorm: 752224 1 Tablet(s) PO daily 01/24/2012 07/21/2012 Inactive lisinopril 10 mg tablet RxNorm: 965522 1/2 Tablet(s) PO daily 12/20/2011 01/23/2012 Inactive Aricept 5 mg tablet RxNorm: 216151 1 Tablet(s) PO daily 07/14/2011 08/06/2012 Inactive Mobic 15 mg tablet RxNorm: 613923 1 Tablet(s) PO daily 07/14/2011 03/19/2012 Inactive Bentyl 10 mg Cap RxNorm: 974813 1 Capsule(s) PO daily one pill daily and every 6 hours if needed for bowel spasms. 06/23/2011 03/20/2012 Inactive amlodipine 5 mg Tab RxNorm: 442617 2 Tablet(s) PO daily 03/08/2011 12/08/2011 Inactive ZOSTAVAX 19,400 unit Sub-Q Soln RxNorm: 3143821 SQ 02/2502/25/2011 Inactive Pneumovax 23 25 mcg/ 0.5 mL Injection RxNorm: 407583 Milliliter(s) Inj 02/16/2011 02/16/2011 In active Influenza Virus Vacc ine 0.5 mL RxNorm: IM 02/09/2011 02/09/2011 Inactive Namenda 10 mg tablet RxNorm: 654032 1 Tablet(s) PO BID 02/01/2011 02/21/2012 Inactive dicyclomine 10 mg ca psule RxNorm: 931011 capsule oral 01/20/2011 10/29/2013 Inactive Namenda 5 mg tablet RxNorm: 903223 tablet oral 01/20/2011 12/24/2013 Inactive dicyclomine 20 mg ta blet RxNorm: 193992 tablet oral 01/15/2011 10/29/2013 Inactive Flagyl 500 mg Tab RxNorm: 871587 1 Tablet(s) PO TID 01/07/2011 01/06/2011 Inactive Cipro 500 mg Tab RxNorm: 502951 1 Tablet(s) PO BID 01/07/2011 06/23/2011 Inactive Cipro 500 mg Tab RxNorm: 613427 1 Tablet(s) PO BID 01/07/2011 01/06/2011 Inactive Flagyl 500 mg Tab RxNorm: 066497 1 Tablet(s) PO TID 01/07/2011 06/23/2011 Inactive metronidazole 500 mg tablet RxNorm: 810354 tablet oral 01/07/2011 12/24/2013 Inactive sulfamethoxazole 400 mg-trimethoprim 80 mg tablet RxNorm: 476096 tablet oral 12/24/2010 03/10/2015 In active mirtazapine 15 mg ta blet RxNorm: 025424 tablet oral 11/14/2010 12/24/2013 Inactive lisinopril 10 mg tablet RxNorm: 926854 tablet oral 11/14/2010 12/24/2013 Inactive doxycycline hyclate 100 mg tablet RxNorm: 837762 tablet oral 11/04/2010 12/24/2013 Inactive diphenoxylate-atropi ne 2.5 mg-0.025 mg tablet RxNorm: 0768552 tablet oral 11/03/2010 10/29/2013 In active ciprofloxacin 500 mg tablet RxNorm: 920330 tablet oral 11/01/2010 10/29/2013 Inactive Miralax 17 gram/dose oral powder RxNorm: 330843 17 Gram(s) PO daily No Start Date Active simvastatin 20 mg ta blet RxNorm: 650259 1 Tablet(s) PO daily No Start Date Active Vesicare 5 mg tablet RxNorm: 747461 1 Tablet(s) PO daily No Start Date Active bicalutamide 50 mg t ablet RxNorm: 736325 1 Tablet(s) PO daily No Start Date Active Aspirin Low Dose 81 mg tablet,delayed release RxNorm: 510665 1 Tablet(s) PO daily No Start Date Active sulfamethoxazole 500 mg Tab RxNorm: 894310 1/2 Tablet(s) PO daily No Start Date 12/24/2013 Inactive Plavix 75 mg Tab RxNorm: 470595 1 Tablet(s) PO daily No Start Date 01/26/2011 Inactive aspirin 81 mg Cap, D elayed Release RxNorm: 058960 1 Capsule(s) PO daily No Start Date 01/04/2018 Inactive Bentyl 10 mg capsule RxNorm: 582942 1 Capsule(s) PO QID as needed per dr. tylor pereira No Start Date 01/04/2018 Inactive famotidine 20 mg tablet RxNorm: 630278 1 Tablet(s) PO BID prescribed in ER No Start Date 10/13/2017 Inactive hydrocodone 5 mg-alexey taminophen 325 mg tablet RxNorm: 606670 1 Tablet(s) PO Q6 as needed No Start Date 06/05/2014 Inactive Proscar 5 mg Tab RxNorm: 005419 1 Tablet(s) PO daily No Start Date 09/01/2015 Inactive Plavix 75 mg tablet RxNorm: 940847 1 Tablet(s) PO daily No Start Date 07/03/2012 Inactive albuterol sulfate 2. 5 mg/0.5 mL solution for nebulization RxNorm: 781789 1 inhale INH Q4H as needed No Start Date 05/20/2014 Inactive metoclopramide 5 mg tablet RxNorm: 881703 1 Tablet(s) PO AC & H S prescribed in ER No Start Date 01/04/2018 Inactive amlodipine 5 mg Tab RxNorm: 700121 1 Tablet(s) PO daily No Start Date 03/07/2011 Inactive ranitidine 150 mg ta blet RxNorm: 233799 1 Tablet(s) PO daily No Start Date 07/24/2018 Inactive Namenda 5 mg Tab RxNorm: 206278 1 Tablet(s) PO daily No Start Date 06/23/2011 Inactive Zyrtec 10 mg tablet RxNorm: 4821633 1 Tablet(s) PO daily No Start Date 01/04/2018 Inactive Allergy Relief (ceti rizine) oral RxNorm: 937032 oral No S tart Date 12/19/2016 Inactive alprazolam 0.25 mg t ablet RxNorm: 246983 1 Tablet(s) PO BID PRN No Start Date 01/15/2019 Inactive fluocinonide 0.05 % Ointment RxNorm: 499822 1 TOP BID PRN No Start Date 12/24/2013 Inactive amlodipine 5 mg tablet RxNorm: 757831 1 Tablet(s) PO daily No Start Date 09/01/2014 Inactive lisinopril Oral RxNorm: Oral No Start Date 12/08/2011 Inactive simvastatin 20 mg Tab RxNorm: 135533 1 Tablet(s) PO daily No Start Date 06/06/2014 Inactive Bentyl 20 mg Tab RxNorm: 588469 1 Tablet(s) PO Q6 PRN No Start Date 06/23/[address] Quintero Bentyl 10 mg Cap RxNorm: 528574 1 Capsule(s) PO BID No Start Date 06/22/2011 Inactive fluticasone 50 mcg/a ctuation nasal spray,suspension RxNorm: 3901938 1 [place] NASAL BID No Start Date 02/07/2018 Inactive Plavix 75 mg Tab RxNorm: 097484 1 Tablet(s) PO every other day No Start Date 08/24/2011 Inactive lorazepam 0.5 mg tablet RxNorm: 131876 1/2 Tablet(s) PO Q8 PRN No Start Date 02/01/2012 Inactive lisinopril 10 mg tablet RxNorm: 285560 1 Tablet(s) PO daily No Start Date 12/19/2011 Inactive Trulance 3 mg tablet RxNorm: 0238550 1 Tablet(s) PO QAM No Start Date 01/18/2018 Inactive Flomax 0.4 mg 24 hr Cap RxNorm: 802342 1 Capsule(s) PO daily No Start Date 05/28/2014 Inactive Phenergan 6.25 mg/5 mL syrup RxNorm: 268191 5-10 Milliliter(s) PO QID as needed No Start Date 08/16/2018 Inactive Aricept 5 mg Tab RxNorm: 750926 1 Tablet(s) PO daily No Start Date 07/13/2011 Inactive Vitamin D 1,000 unit Tab RxNorm: 585578 1 Tablet(s) PO daily No Start Date 01/04/2018 Inactive Levsin 0.125 mg tablet RxNorm: 8390119 1 Tablet(s) PO QID as needed FOR ABD REJI N No Start Date 11/04/2014 Inactive mirtazapine 7.5 mg t ablet RxNorm: 268084 1/2 Tablet(s) PO daily No Start Date 08/29/2013 Inactive Senior Vitamin Tab RxNorm: 1 Tablet(s) PO daily No Start Date 01/04/2018 Inactive Mobic 15 mg Tab RxNorm: 840247 1 Tablet(s) PO daily No Start Date 07/13/2011 Inactive Medication Administered Medication Codes Instruc tions Start Date Status Kenalog 40 mg/mL suspension for injection RxNorm: 1313203 Milliliter 11/25/2016 No longer Active Influenza Virus Vaccine 0.5 mL RxNorm: 02/06/2013 No longer Active ZOSTAVAX 19,400 unit Sub-Q Soln RxNo rm: 7300945 02/25/2011 No longer A ctive Pneumovax 23 25 mcg/0.5 mL Injection RxNorm: 493816 Milliliter 02/16/2011 No longer Active Influenza Virus Vaccine 0.5 mL RxNorm: 02/09/2011 No longer Active Immunizations Vaccine Codes Date Status Influenza CVX: 141 02/08 completed Influenza CVX: 141 01/25 completed Pneumococcal (Adult) CVX: 133 05/06/2015 completed Influenza CVX: 141 02/19 completed Influenza CVX: 141 03/26 completed Influenza CVX: 141 02/06 completed Influenza CVX: 141 02/20 completed DTaP CVX: 20 02/27/2011 completed Pneumococcal (Adult) CVX: 33 02/16/2011 completed Influenza CVX: 141 02/09 completed Pneumococcal (Adult) Unknown 02/05/2009 completed Pneumococcal (Adult) Unknown 02/05/2009 completed Assessments Condition Codes Effectiv e Dates Encounter for immunization ICD-10: Z 23 ICD-9: V04.81 01/23/2019 Encounter for general adult medical exam ination with abnormal findings ICD-10: Z00.01 ICD-9: V70.0 01/16/2019 Cervicalgia ICD-10: M54.2 ICD-9: 723.1 12/14/2018 Essential (primary) hypertension ICD -10: I10 ICD-9: 401.1 12/14/2018 Gastro-esophageal reflux disease without esophagitis ICD-10: K21.9 ICD-9: 530.81 08/17/2018 Alzheimer's disease with late onset ICD-10: G30.1 ICD-9: 331.0 08/17/2018 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 ICD-9: 703.8 05/18/2018 Abrasion of left upper arm, initial encounter ICD-10: S40.812A ICD-9: 913.0 05/18/2018 Dry mouth, unspecified ICD-10: R68.2 ICD-9: 527.7 02/08/2018 Other lesions of oral mucosa ICD-10: K13.79 ICD-9: 528.9 02/08/2018 Irritable bowel syndrome with constipation ICD-10: K58.1 ICD-9: 564.1 02/08/2018 Essential (primary) hypertension ICD -10: I10 ICD-9: 401.9 02/08/2018 Slow transit constipation ICD-10: K5 9.01 ICD-9: 564.01 01/19/2018 Acute pharyngitis, unspecified ICD-1 0: J02.9 ICD-9: 462 01/13/2018 Cough ICD-10: R05 ICD-9: 786.2 01/12/2018 Candidal stomatitis ICD-10: B37.0 ICD-9: 112.0 01/12/2018 Major depressive disorder, single episode, 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 ICD-9: 311 01/05/2018 Generalized anxiety disorder ICD-10: F41.1 ICD-9: 300.02 01/05/2018 Malignant neoplasm of prostate ICD-1 0: C61 ICD-9: 185 11/14/2017 Underweight ICD-10: R63.6 ICD-9: 783.22 10/13/2017 Gastroparesis ICD-10: K31.84 ICD-9: 536.3 09/26/2017 Dysuria ICD-10: R30.0 ICD-9: 788.1 09/26/2017 Other abnormal glucose ICD-10: R73.0 9 ICD-9: 790.29 09/12/2017 Other fatigue ICD-10: R53.83 ICD-9: 780.79 09/09/2017 Unsteadiness on feet ICD-10: R26.81 ICD-9: 781.2 06/21/2017 Gas pain ICD-10: R14.1 ICD-9: 787.3 06/21/2017 Pain in thoracic spine ICD-10: M54.6 ICD-9: 724.1 06/21/2017 Other allergic rhinitis ICD-10: J30. 89 ICD-9: 477.8 03/08/2017 Other hypotension ICD-10: I95.89 ICD-9: 458.8 01/25/2017 Acute recurrent maxillary sinusitis ICD-10: J01.01 ICD-9: 461.0 12/20/2016 Acute recurrent ethmoidal sinusitis ICD-10: J01.21 ICD-9: 461.2 12/01/2016 Bronchitis, not specified as acute or chronic ICD-10: J40 ICD-9: 490 11/25/2016 Candidal esophagitis ICD-10: B37.81 ICD-9: 112.84 11/18/2016 Mild cognitive impairment, so stated ICD-10: G31.84 ICD-9: 331.83 08/23/2016 Olecranon bursitis, right elbow ICD- 10: M70.21 ICD-9: 726.33 02/17/2016 Hypo-osmolality and hyponatremia ICD -10: E87.1 ICD-9: 276.1 02/05/2016 Generalized abdominal tenderness ICD -10: R10.817 ICD-9: 789.67 01/26/2016 Encounter for immunization ICD-10: Z 23 ICD-9: V03.9 05/06/2015 Mixed hyperlipidemia ICD-10: E78.2 ICD-9: 272.4 05/06/2015 ESSENTIAL HYPERTENSION ICD-9: 401.9 12/04/2014 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 12/04/2014 GENERALIZED ANXIETY DISEASE ICD-9: 300.02 12/04/2014 IRRITABLE COLON ICD-9: 564.1 12/04/2014 Abdominal pain ICD-9: 789.00 09/24/2014 Hyponatremia ICD-9: 276.1 09/24/2014 Osteoarthritis ICD-9: 715.90 09/09/2014 Depression ICD-9: 311 Urinary frequency ICD-9: 788.41 06/06/2014 Dizziness ICD-9: 780.4 0 06/06/2014 NOCTURIA ICD-9: 788.43 0 05/23/2014 COUGH ICD-9: 786.2 05/20 ALLERGIC RHINITIS ICD-9: 477.9 05/20/2014 Pneumonia ICD-9: 486 04/2015 Nasal congestion ICD-9: 478.19 12/24/2013 ABNORMAL LOSS OF WEIGHT ICD-9: 783.21 11/20/2013 MALAISE AND FATIGUE ICD-9: 780.79 10/30/2013 Acute maxillary sinusitis ICD-9: 461.0 10/08/2013 Coronary artery disease ICD-9: 414.00 06/18/2013 Encounter for long-term (current) use of other medicat ions ICD-9: V58.69 02/19/2013 Leukopenia ICD-9: 288.50 02/19/2013 VACCIN FOR INFLUENZA ICD-9: V04.81 02/06/2013 HYPERLIPIDEMIA ICD-9: 272.4 06/19/2012 BPH W URINARY OBS/LUTS ICD-9: 600.01 12/20/2011 Lump in the groin ICD-9: 789.30 12/09/2011 DIVERTICULOSIS, COLON ICD-9: 562.10 04/19/2011 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 04/19/2011 Laceration of finger, index ICD-9: 883.0 03/08/2011 Need for shingles vaccine ICD-9: V04.89 02/25/2011 VACCIN STREP PNEUMONIAE ICD-9: V03.82 02/16/2011 HYDROCELE ICD-9: 603.9 0 02/01/2011 Bruising ICD-9: 924.9 Testicular pain ICD-9: 608.9 01/27/2011 Arm bruise ICD-9: 923.9 01/26/2011 Diarrhea ICD-9: 787.91 0 01/15/2011 Elevated liver function tests ICD-9: 790.6 01/06/2011 Reason For Visit Reason For Visit Effective Dates Notes vaccination against influenza 01/23/2019 Annual Medicare Wellness Exam 01/16/2019 back pain 12/14/2018 hypertension 08/17/2018 abdominal pain 05/18/2018 abdominal pain 04/13/2018 abdominal pain 02/08/2018 abdominal pain 01/19/2018 hypertension 01/12/2018 sore throat 01/05/2018 abdominal pain 11/14/2017 constipation 2017 constipation 10/13/2017 [...] 07/26/2014 Hospital Follow Up 07/10/2014 vertigo 06/06/2014 const antly- sitting/standing/laying- even while eating. insomnia 05/29/2014 inte rmittent, last time this am cough 05/20/2014 vaccination against influenza 03/26/2014 cough 03/25/2014 cough 02/08/2014 left ea r Weight follow up 12/24/2013 Weight follow up [...] Observation Code Item Item Code Result Date Magnesium Ord90 Mag 2.2 mg/dL 06/08/2018 Metabolic Ord15 NA 137 mEq/L 06/08/2018 Metabolic Ord15 K 4.2 mEq/L 06/08/2018 Metabolic Ord15 CL 98 mEq/L 06/08/2018 Metabolic Ord15 CO2 34.0 mEq/L 06/08/2018 Metabolic Ord15 GLUCOSE 78 mg/dL 06/08/2018 Metabolic Ord15 BUN 28 mg/dL 06/08/2018 Metabolic Ord15 Creat 1.2 mg/dL 06/08/2018 Metabolic Ord15 B/C Ratio 23.7 Ratio 06/08/2018 Metabolic Ord15 eGFR 62 ml/min/1.73m2 06/08/2018 Metabolic Ord15 Osmo 278 mOsmo 06/08/2018 Metabolic Ord15 ANION GAP 9 06/08/2018 Metabolic Ord15 CALCIUM 10.1 mg/dL 06/08/2018 Comp Metabolic Dbp310 NA 143 mEq/L 04/10/2018 Comp Metabolic Eyp433 K 3.8 mEq/L 04/10/2018 Comp Metabolic Wjw108 CL 105 mEq/L 04/10/2018 Comp Metabolic Wtg279 CO2 30.0 mEq/L 04/10/2018 Comp Metabolic Lso594 AN ION GAP 12 04/10/2018 Comp Metabolic Dgf663 GL UCOSE 95 mg/dL 04/10/2018 Comp Metabolic Iki640 Cr eat 1.2 mg/dL 04/10/2018 Comp Metabolic Tqo803 eG FR 60 ml/min/1.73m2 04/10 Comp Metabolic Pac443 BUN 22 mg/dL 04/10/2018 Comp Metabolic Amt233 B/ C Ratio 18.2 Ratio 04/10/2018 Comp Metabolic Dtf405 CA LCIUM 10.3 mg/dL 04/10/2018 Comp Metabolic Nvl549 AL K PHOS 113 U/L 04/10/2018 Comp Metabolic Ezt537 T(SGOT) 30 U/L 04/10/2018 Comp Metabolic Rff322 AL T(SGPT) 19 U/L 04/10/2018 Comp Metabolic Kuu772 BI LI T 0.4 mg/dL 04/10/2018 Comp Metabolic Ymx842 AL BUMIN 4.2 g/dL 04/10/2018 Comp Metabolic Bst566 TP RO 6.5 g/dL 04/10/2018 Comp Metabolic Kwk995 GL OB 2.3 g/dL 04/10/2018 Comp Metabolic Wig471 A/ G Ratio 1.8 Ratio 04/10/2018 Comp Metabolic Pzz807 Os mo 288 mOsmo 04/10/2018 Lipid Ord30 CHOL 133 mg/dL 04/10/2018 Lipid Ord30 HDL 49.0 mg/dl 04/10/2018 Lipid Ord30 TRIG 68 mg/dL 04/10/2018 Lipid Ord30 LDL 70 mg/dL 04/10/2018 Lipid Ord30 C/HDL 2.7 Ratio 04/10/2018 C RAP A SC 1311402 Strep A Negative 01/13/2018 Comp Metabolic Ncc277 NA 134 mEq/L 10/07/2017 Comp Metabolic Ygp246 K 4.5 mEq/L 10/07/2017 Comp Metabolic Lni432 CL 99 mEq/L 10/07/2017 Comp Metabolic Amr548 CO2 31.0 mEq/L 10/07/2017 Comp Metabolic Qka743 AN ION GAP 9 10/07/2017 Comp Metabolic Nzn128 GL UCOSE 82 mg/dL 10/07/2017 Comp Metabolic Xcu683 Cr eat 1.0 mg/dL 10/07/2017 Comp Metabolic Ucu788 eG FR 77 ml/min/1.73m2 10/07 Comp Metabolic Oij282 BUN 16 mg/dL 10/07/2017 Comp Metabolic Kbi565 B/ C Ratio 16.3 Ratio 10/07/2017 Comp Metabolic Jex075 CA LCIUM 9.6 mg/dL 10/07/2017 Comp Metabolic Agf472 AL K PHOS 72 U/L 10/07/2017 Comp Metabolic Rim687 T(SGOT) 21 U/L 10/07/2017 Comp Metabolic Ugj171 AL T(SGPT) 14 U/L 10/07/2017 Comp Metabolic Clk477 BI LI T 0.4 mg/dL 10/07/2017 Comp Metabolic Qlr238 AL BUMIN 4.0 g/dL 10/07/2017 Comp Metabolic Esh291 TP RO 5.7 g/dL 10/07/2017 Comp Metabolic Pje006 GL OB 1.7 g/dL 10/07/2017 Comp Metabolic Kih833 A/ G Ratio 2.4 Ratio 10/07/2017 Comp Metabolic Uvi621 Os mo 269 mOsmo 10/07/2017 Lipid Ord30 CHOL 135 mg/dL 10/07/2017 Lipid Ord30 HDL 69.0 mg/dl 10/07/2017 Lipid Ord30 TRIG 52 mg/dL 10/07/2017 Lipid Ord30 LDL 56 mg/dL 10/07/2017 Lipid Ord30 C/HDL 2.0 Ratio 10/07/2017 %Hba1C Irp462 % HbA1c 38949-8 5.5 % 09/12/2017 %Hba1C Mfj693 Gluc Ave 111 mg/dL 09/12/2017 B12 Yym146 B12 816.00 pg/ml 09/10/2017 Test(s) Not Perfromed Test(s) Not Performed Test(s) Not Performed. See B elow: 09/09/2017 Test(s) Not Perfromed TEST NAME VIT D 09/09/2017 Test(s) Not Perfromed Rejection Reason NO PAYABLE DX 018 Test(s) Not Perfromed COMMENT PATIENT SAID HE WAS TAKING SUPPLEMENT 09/09/2017 Test(s) Not Perfromed Teacher Cclc Tello Almeida 018 Lipid Ord30 CHOL 134 mg/dL 04/11/2017 Lipid Ord30 HDL 63.0 mg/dl 04/11/2017 Lipid Ord30 TRIG 45 mg/dL 04/11/2017 Lipid Ord30 LDL 62 mg/dL 04/11/2017 Lipid Ord30 C/HDL 2.1 Ratio 04/11/2017 Tsh Ord6 hTSH II 2.07 uIU/mL 04/11/2017 Body Fluid Crystals [id number] Source RIGHT ELBOW 6 Body Fluid Crystals [id number] CRYSTALS, BODY FLUID 02/18/2016 Uric Acid Body Fluid [id number] URIC ACID-FLUID 4.3 mg/dL 02/18/2016 Metabolic Ord15 NA 128 mEq/L 02/05/2016 Metabolic [...] Ord15 CALCIUM 9.1 mg/dL 02/05/2016 Comp Metabolic Wfq825 NA 129 mEq/L 10/08/2015 Comp Metabolic Fqw477 K 4.7 mEq/L 10/08/2015 Comp Metabolic Xut220 CL 98 mEq/L 10/08/2015 Comp Metabolic Ugc147 CO2 28.0 mEq/L 10/08/2015 Comp Metabolic Fnk938 AN ION GAP 8 10/08/2015 Comp Metabolic Eqk704 GL UCOSE 84 mg/dL 10/08/2015 Comp Metabolic Huf758 Cr eat 1.3 mg/dL 10/08/2015 Comp Metabolic Qsi605 eG FR 56 ml/min/1.73m2 10/07 Comp Metabolic Vgo704 BUN 23 mg/dL 10/08/2015 Comp Metabolic Wke004 B/ C Ratio 17.8 Ratio 10/08/2015 Comp Metabolic Hys125 CA LCIUM 9.3 mg/dL 10/08/2015 Comp Metabolic Mkg282 AL K PHOS 68 U/L 10/08/2015 Comp Metabolic Wkg746 T(SGOT) 24 U/L 10/08/2015 Comp Metabolic Bdi300 AL T(SGPT) 15 U/L 10/08/2015 Comp Metabolic Xts890 BI LI T 0.5 mg/dL 10/08/2015 Comp Metabolic Gyy491 AL BUMIN 4.0 g/dL 10/08/2015 Comp Metabolic Wdw758 TP RO 5.9 g/dL 10/08/2015 Comp Metabolic Cep073 GL OB 1.9 g/dL 10/08/2015 Comp Metabolic Tna976 A/ G Ratio 2.1 Ratio 10/08/2015 Comp Metabolic Rtj893 Os mo 262 mOsmo 10/08/2015 Lipid Ord30 CHOL 134 [...] Ord30 C/HDL 2.3 Ratio 05/07/2015 Comp Metabolic Mnu779 NA 132 mEq/L 05/07/2015 Comp Metabolic Fnn629 K 4.4 mEq/L 05/07/2015 Comp Metabolic Plp362 CL 97 mEq/L 05/07/2015 Comp Metabolic Mqg249 CO2 30.0 mEq/L 05/07/2015 Comp Metabolic Bzn493 AN ION GAP 9 05/07/2015 Comp Metabolic Wqg061 GL UCOSE 78 mg/dL 05/07/2015 Comp Metabolic Kvw279 Cr eat 1.2 mg/dL 05/07/2015 Comp Metabolic Lwx257 eG FR 60 ml/min/1.73m2 05/07 Comp Metabolic Kyb407 BUN 25 mg/dL 05/07/2015 Comp Metabolic Xvx368 B/ C Ratio 20.3 Ratio 05/07/2015 Comp Metabolic Mka092 CA LCIUM 9.6 mg/dL 05/07/2015 Comp Metabolic Tcj369 AL K PHOS 70 U/L 05/07/2015 Comp Metabolic Oro108 T(SGOT) 27 U/L 05/07/2015 Comp Metabolic Mnc657 AL T(SGPT) 20 U/L 05/07/2015 Comp Metabolic Rvi278 BI LI T 0.4 mg/dL 05/07/2015 Comp Metabolic Xpk214 AL BUMIN 4.0 g/dL 05/07/2015 Comp Metabolic Yxc089 TP RO 5.8 g/dL 05/07/2015 Comp Metabolic Emr232 GL OB 1.8 g/dL 05/07/2015 Comp Metabolic Yyn320 A/ G Ratio 2.3 Ratio 05/07/2015 Comp Metabolic Znj191 Os mo 268 mOsmo 05/07/2015 Cbc With Differential Ord2 [...] hTSH II 4.07 uIU/mL 05/07/2015 Comp Metabolic Uca931 NA 134 mEq/L 12/10/2014 Comp Metabolic Eov561 K 4.8 mEq/L 12/10/2014 Comp Metabolic Gxt801 CL 101 mEq/L 12/10/2014 Comp Metabolic Ymk553 CO2 30.0 mEq/L 12/10/2014 Comp Metabolic Urf359 AN ION GAP 8 12/10/2014 Comp Metabolic Kgx240 GL UCOSE 85 mg/dL 12/10/2014 Comp Metabolic Scv394 Cr eat 1.2 mg/dL 12/10/2014 Comp Metabolic Yky630 eG FR 65 ml/min/1.73m2 12/10 Comp Metabolic Mac646 BUN 25 mg/dL 12/10/2014 Comp Metabolic Uol719 B/ C Ratio 21.7 Ratio 12/10/2014 Comp Metabolic Gze384 CA LCIUM 9.5 mg/dL 12/10/2014 Comp Metabolic Mae737 AL K PHOS 76 U/L 12/10/2014 Comp Metabolic Vqg327 T(SGOT) 27 U/L 12/10/2014 Comp Metabolic Egh311 AL T(SGPT) 18 U/L 12/10/2014 Comp Metabolic Tah886 BI LI T 0.5 mg/dL 12/10/2014 Comp Metabolic Wmk911 AL BUMIN 4.1 g/dL 12/10/2014 Comp Metabolic Xjh162 TP RO 5.7 g/dL 12/10/2014 Comp Metabolic Pgf684 GL OB 1.6 g/dL 12/10/2014 Comp Metabolic Npg687 A/ G Ratio 2.6 Ratio 12/10/2014 Comp Metabolic Fee257 Os mo 272 mOsmo 12/10/2014 B12 Iyf866 B12 1011.00 pg/ml 12/10/2014 Lipid Ord30 CHOL [...] Differential Ord2 RDW 14.3 % 12/10/2014 CBC [id number] WBC 4.1 10e9/L 02/19/2013 CBC [id number] RBC 4.39 10e12/L 02/19/2013 CBC [id number] HGB 14.1 g/dL 02/19/2013 CBC [id number] HCT DET 41.0 % 02/19/2013 CBC [id number] MCV 93.4 fL 02/19/2013 CBC [id number] MCH 32.1 pg 02/19/2013 CBC [id number] MCHC 34.4 g/dL 02/19/2013 CBC [id number] PLT 151 10e9/L 02/19/2013 CBC [id number] MPV 11.8 fL 02/19/2013 CBC [id number] YOVANNY % 63.2 % 02/19/2013 CBC [id number] LY % 22.9 % 02/19/2013 CBC [id number] MON % 11.5 % 02/19/2013 CBC [id number] EOS % 2.2 % 02/19/2013 CBC [id number] BASO % 0.2 % 02/19/2013 CBC [id number] RDW 13.8 % 02/19/2013 CBC [id number] ABS YOVANNY 2.59 10e9/L 02/19/2013 CBC [id number] ABS LYMPH 0.94 10e9/L 02/19/2013 CBC [id number] ABS MONO 0.47 10e9/L 02/19/2013 CBC [id number] ABS EOS 0.09 10e9/L 02/19/2013 CBC [id number] ABS BASO 0.01 10e9/L 02/19/2013 CBC [id number] RDW-SD 46.0 fL 02/19/2013 TSH [id number] TSH 2.094 uIU/ML 02/19/2013 FREE T4 [id number] FREE T4 1.18 NG/DL 02/19/2013 GFR CALC [id number] GFR AA >60 ML/MIN 02/19/2013 GFR CALC [id number] GFR NON -AA >60 ML/MIN 02/19/2013 CHEM 14 [id number] AST 30 U/L 02/19/2013 CHEM 14 [id number] ALT 19 IU/L 02/19/2013 CHEM 14 [id number] BUN 21 MG/DL 02/19/2013 CHEM 14 [id number] ALBUMIN 4.4 GM/DL 02/19/2013 CHEM 14 [id number] CHLORIDE 94 MMOL/L 02/19/2013 CHEM 14 [id number] BILI TOT 0.5 MG/DL 02/19/2013 CHEM 14 [id number] ALK PHOS 75 U/L 02/19/2013 CHEM 14 [id number] SODIUM 133 MMOL/L 02/19/2013 CHEM 14 [id number] CREATINI NE 1.07 MG/DL 02/19/2013 CHEM 14 [id number] CALCIUM 9.6 MG/DL 02/19/2013 CHEM 14 [id number] POTASSIUM 4.6 MMOL/L 02/19/2013 CHEM 14 [id number] PROT TOT 6.1 GM/DL 02/19/2013 CHEM 14 [id number] GLUCOSE 94 MG/DL 02/19/2013 CHEM 14 [id number] BICARB 31 MMOL/L 02/19/2013 CHEM 14 [id number] ANION GAP 8 MEQ/L 02/19/2013 UA 51336 Specific [place] 1.015 DateTime(Free Text in Aprima ) UA 90622 PH 6 DateTime(Free Text in Aprima ) UA 83603 GLUCOSE neg DateTime(Free Text in Aprima ) UA 24983 Protein neg DateTime(Free Text in Aprima ) UA 32998 Blood neg DateTime(Free Text in Aprima ) UA 65252 Bilirubin neg DateTime(Free Text in Aprima ) UA 23022 Ketones neg DateTime(Free Text in Aprima ) UA 04334 Urobilinogen neg DateTime(Free Text in Aprima ) UA 82544 Nitrite neg DateTime(Free Text in Aprima ) UA 27758 Leukocytes neg DateTime(Free Text in Apr ) Review of Systems System Result Effective Dates Constitutional No recent illness 01/16/2019 Constitutional No anorexia 01/16/2019 Constitutional No night sweats 01/16/2019 Constitutional No chills 01/16/2019 Constitutional No diaphoresis 01/16/2019 Constitutional No fatigue 01/16/2019 Constitutional No fever 01/16/2019 Constitutional No insomnia 01/16/2019 Eyes No eye discharge Eyes No eye erythema 02/2019 Ears/Nose/Throat/Neck No dizziness 01/16/2019 Ears/Nose/Throat/Neck No headache 01/16/2019 Cardiovascular No chest pain/pressure 01/16/2019 Cardiovascular No dyspnea 01/16/2019 Cardiovascular No edema 01/16/2019 Respiratory No productive sputum 01/16/2019 Respiratory No chest congestion 01/16/2019 Gastrointestinal No constipation 01/16/2019 Gastrointestinal No diarrhea 01/16/2019 Gastrointestinal No nausea 01/16/2019 Gastrointestinal No vomiting 01/16/2019 Genitourinary/Nephrology No dysuria 01/16/2019 Genitourinary/Nephrology No urinary urgenc y 01/16/2019 Musculoskeletal No joint complaint 01/16/2019 Dermatologic No rash 02/2019 Dermatologic No sores Neurologic No alteration of consciousness 01/16/2019 Psychiatric anxiety 01/07 Constitutional recent illness 12/14/2018 Constitutional No chills 12/14/2018 Constitutional No diaphoresis 12/14/2018 Constitutional No fever 12/14/2018 Eyes No blindness 2018 Ears/Nose/Throat/Neck No nasal discharge 12/14/2018 Cardiovascular No chest pain/pressure 12/14/2018 Cardiovascular No dyspnea 12/14/2018 Respiratory No chest congestion 12/14/2018 Respiratory No cough 12/2018 Gastrointestinal constipation 12/14/2018 Gastrointestinal gastroesophageal reflux 12/14/2018 Gastrointestinal No nausea 12/14/2018 Gastrointestinal No vomiting 12/14/2018 Musculoskeletal No stiffness 12/14/2018 Dermatologic No rash 12/2018 Neurologic No alteration of consciousness 12/14/2018 Neurologic No mental status change 12/14/2018 Psychiatric No anxiety 0 12/14/2018 Psychiatric No depression 12/14/2018 Musculoskeletal neck pain 12/14/2018 Constitutional recent illness 08/17/2018 Constitutional No chills 08/17/2018 Constitutional No diaphoresis 08/17/2018 Constitutional No fever 08/17/2018 Eyes No blindness 2018 Ears/Nose/Throat/Neck No nasal discharge 08/17/2018 Ears/Nose/Throat/Neck sore throat 08/17/2018 Cardiovascular No chest pain/pressure 08/17/2018 Cardiovascular No dyspnea 08/17/2018 Respiratory No chest congestion 08/17/2018 Respiratory No cough 03/2019 Gastrointestinal abdominal pain 08/17/2018 Gastrointestinal constipation 08/17/2018 Gastrointestinal No nausea 08/17/2018 Gastrointestinal No vomiting 08/17/2018 Musculoskeletal No stiffness 08/17/2018 Dermatologic No rash 03/2019 Neurologic No alteration of consciousness 08/17/2018 Neurologic No mental status change 08/17/2018 Psychiatric No anxiety 0 08/17/2018 Psychiatric No depression 08/17/2018 Gastrointestinal gastroesophageal reflux 08/17/2018 Constitutional recent illness 05/18/2018 Constitutional No chills 05/18/2018 Constitutional No diaphoresis 05/18/2018 Constitutional No fever 05/18/2018 Eyes No blindness 2018 Ears/Nose/Throat/Neck No nasal discharge 05/18/2018 Ears/Nose/Throat/Neck sore throat 05/18/2018 Cardiovascular No chest pain/pressure 05/18/2018 Cardiovascular No dyspnea 05/18/2018 Respiratory No chest congestion 05/18/2018 Respiratory No cough 02/2019 Gastrointestinal abdominal pain 05/18/2018 Gastrointestinal constipation 05/18/2018 Gastrointestinal No nausea 05/18/2018 Gastrointestinal No vomiting 05/18/2018 Musculoskeletal No stiffness 05/18/2018 Dermatologic No rash 02/2019 Neurologic No alteration of consciousness 05/18/2018 Neurologic No mental status change 05/18/2018 Psychiatric No anxiety 0 05/18/2018 Psychiatric No depression 05/18/2018 Dermatologic sores 05/18 Dermatologic onychodystrophy 05/18/2018 Constitutional recent illness 04/13/2018 Constitutional No chills 04/13/2018 Constitutional No diaphoresis 04/13/2018 Constitutional No fever 04/13/2018 Eyes No blindness 2017 Ears/Nose/Throat/Neck No nasal discharge 04/13/2018 Ears/Nose/Throat/Neck sore throat 04/13/2018 Cardiovascular No chest pain/pressure 04/13/2018 Cardiovascular No dyspnea 04/13/2018 Respiratory No chest congestion 04/13/2018 Respiratory No cough 10/2017 Gastrointestinal abdominal pain 04/13/2018 Gastrointestinal constipation 04/13/2018 Gastrointestinal diarrhea 04/13/2018 Gastrointestinal No nausea 04/13/2018 Gastrointestinal No vomiting 04/13/2018 Genitourinary/Nephrology No dysuria 04/13/2018 Musculoskeletal No stiffness 04/13/2018 Dermatologic No rash 10/2017 Neurologic No alteration of consciousness 04/13/2018 Neurologic No mental status change 04/13/2018 Psychiatric No anxiety 1 06/14/2017 Psychiatric No depression 04/13/2018 Constitutional fatigue 1 06/14/2017 Ears/Nose/Throat/Neck dry mouth 04/13/2018 Ears/Nose/Throat/Neck oral pain 04/13/2018 Constitutional recent illness 02/08/2018 Constitutional No chills 02/08/2018 Constitutional No diaphoresis 02/08/2018 Constitutional No fever 02/08/2018 Eyes No blindness 2017 Ears/Nose/Throat/Neck No nasal discharge 02/08/2018 Ears/Nose/Throat/Neck sore throat 02/08/2018 Cardiovascular No chest pain/pressure 02/08/2018 Cardiovascular No dyspnea 02/08/2018 Respiratory No chest congestion 02/08/2018 Respiratory No cough 07/2017 Gastrointestinal abdominal pain 02/08/2018 Gastrointestinal constipation 02/08/2018 Gastrointestinal No nausea 02/08/2018 Gastrointestinal No vomiting 02/08/2018 Musculoskeletal No stiffness 02/08/2018 Dermatologic No rash 07/2017 Neurologic No alteration of consciousness 02/08/2018 Neurologic No mental status change 02/08/2018 Psychiatric No anxiety 1 Psychiatric No depression 02/08/2018 Constitutional recent illness 01/19/2018 Constitutional No chills 01/19/2018 Constitutional No diaphoresis 01/19/2018 Constitutional No fever 01/19/2018 Eyes No blindness 2017 Ears/Nose/Throat/Neck No nasal discharge 01/19/2018 Ears/Nose/Throat/Neck sore throat 01/19/2018 Cardiovascular No chest pain/pressure 01/19/2018 Cardiovascular No dyspnea 01/19/2018 Respiratory No chest congestion 01/19/2018 Respiratory No cough Gastrointestinal abdominal pain 01/19/2018 Gastrointestinal constipation 01/19/2018 Gastrointestinal No nausea 01/19/2018 Gastrointestinal No vomiting 01/19/2018 Genitourinary/Nephrology No dysuria 01/19/2018 Musculoskeletal No stiffness 01/19/2018 Dermatologic No rash Neurologic No alteration of consciousness 01/19/2018 Neurologic No mental status change 01/19/2018 Psychiatric No anxiety 0 01/19/2018 Psychiatric No depression 01/19/2018 Constitutional recent illness 01/12/2018 Constitutional No chills 01/12/2018 Constitutional No diaphoresis 01/12/2018 Constitutional No fever 01/12/2018 Eyes No blindness 2017 Ears/Nose/Throat/Neck No nasal discharge 01/12/2018 Ears/Nose/Throat/Neck sore throat 01/12/2018 Cardiovascular No chest pain/pressure 01/12/2018 Cardiovascular No dyspnea 01/12/2018 Respiratory No chest congestion 01/12/2018 Respiratory No cough 10/2017 Gastrointestinal No nausea 01/12/2018 Gastrointestinal No vomiting 01/12/2018 Genitourinary/Nephrology No dysuria 01/12/2018 Musculoskeletal No stiffness 01/12/2018 Dermatologic No rash 10/2017 Neurologic No alteration of consciousness 01/12/2018 Neurologic No mental status change 01/12/2018 Psychiatric No anxiety 0 01/12/2018 Psychiatric No depression 01/12/2018 Ears/Nose/Throat/Neck oral pain 01/12/2018 Gastrointestinal No abdominal pain 01/12/2018 Constitutional recent illness 01/05/2018 Constitutional No chills 01/05/2018 Constitutional No diaphoresis 01/05/2018 Constitutional No fever 01/05/2018 Eyes No blindness 2017 Ears/Nose/Throat/Neck No nasal discharge 01/05/2018 Cardiovascular No chest pain/pressure 01/05/2018 Cardiovascular No dyspnea 01/05/2018 Respiratory No chest congestion 01/05/2018 Respiratory No cough Gastrointestinal abdominal pain 01/05/2018 Gastrointestinal constipation 01/05/2018 Gastrointestinal diarrhea 01/05/2018 Gastrointestinal No nausea 01/05/2018 Gastrointestinal No vomiting 01/05/2018 Dermatologic No rash Neurologic No alteration of consciousness 01/05/2018 Neurologic No mental status change 01/05/2018 Psychiatric No anxiety 0 01/05/2018 Psychiatric No depression 01/05/2018 Musculoskeletal No stiffness 01/05/2018 Genitourinary/Nephrology No dysuria 01/05/2018 Ears/Nose/Throat/Neck sore throat 01/05/2018 Constitutional recent illness 11/14/2017 Constitutional No chills 11/14/2017 Constitutional No diaphoresis 11/14/2017 Constitutional No fever 11/14/2017 Eyes No blindness 2017 Ears/Nose/Throat/Neck No nasal discharge 11/14/2017 Cardiovascular No chest pain/pressure 11/14/2017 Cardiovascular No dyspnea 11/14/2017 Respiratory No chest congestion 11/14/2017 Respiratory No cough 01/2018 Gastrointestinal abdominal pain 11/14/2017 Gastrointestinal constipation 11/14/2017 Gastrointestinal diarrhea 11/14/2017 Gastrointestinal No nausea 11/14/2017 Gastrointestinal No vomiting 11/14/2017 Genitourinary/Nephrology urinary frequency 11/14/2017 Dermatologic No rash 01/2018 Neurologic No alteration of consciousness 11/14/2017 Neurologic No mental status change 11/14/2017 Psychiatric anxiety 07/0 01/2018 Psychiatric disturbances of memory 11/14/2017 Constitutional recent illness 2017 Constitutional No chills 2017 Constitutional No diaphoresis 2017 Constitutional No fever 2017 Eyes No eye erythema Ears/Nose/Throat/Neck No nasal discharge 2017 Cardiovascular No chest pain/pressure 2017 Cardiovascular No dyspnea 2017 Respiratory No chest congestion 2017 Respiratory No cough Gastrointestinal abdominal pain 2017 Gastrointestinal constipation 2017 Gastrointestinal diarrhea 2017 Gastrointestinal No nausea 2017 Gastrointestinal No vomiting 2017 Genitourinary/Nephrology urinary frequency 2017 Dermatologic No rash Neurologic No alteration of consciousness 2017 Neurologic No mental status change 2017 Psychiatric anxiety 10/07 Psychiatric disturbances of memory 2017 Constitutional recent illness 10/13/2017 Constitutional No chills 10/13/2017 Constitutional No diaphoresis 10/13/2017 Constitutional No fever 10/13/2017 Eyes No blindness 2017 Ears/Nose/Throat/Neck No nasal discharge 10/13/2017 Cardiovascular No chest pain/pressure 10/13/2017 Cardiovascular No dyspnea 10/13/2017 Respiratory No chest congestion 10/13/2017 Respiratory No cough 11/2017 Gastrointestinal abdominal pain 10/13/2017 Gastrointestinal constipation 10/13/2017 Gastrointestinal diarrhea 10/13/2017 Gastrointestinal No nausea 10/13/2017 Gastrointestinal No vomiting 10/13/2017 Genitourinary/Nephrology urinary frequency 10/13/2017 Dermatologic No rash 11/2017 Neurologic No alteration of consciousness 10/13/2017 Neurologic No mental status change 10/13/2017 Psychiatric anxiety 11/2017 Psychiatric disturbances of memory 10/13/2017 Constitutional recent illness 09/26/2017 Constitutional No chills 09/26/2017 Constitutional No diaphoresis 09/26/2017 Constitutional No fever 09/26/2017 Eyes No blindness 2017 Ears/Nose/Throat/Neck No nasal discharge 09/26/2017 Cardiovascular No chest pain/pressure 09/26/2017 Cardiovascular No dyspnea 09/26/2017 Respiratory No chest congestion 09/26/2017 Respiratory No cough Gastrointestinal abdominal pain 09/26/2017 Gastrointestinal constipation 09/26/2017 Gastrointestinal diarrhea 09/26/2017 Gastrointestinal No nausea 09/26/2017 Gastrointestinal No vomiting 09/26/2017 Dermatologic No rash Neurologic No alteration of consciousness 09/26/2017 Neurologic No mental status change 09/26/2017 Genitourinary/Nephrology urinary frequency 09/26/2017 Psychiatric anxiety 09/07 Psychiatric disturbances of memory 09/26/2017 Constitutional recent illness 09/12/2017 Constitutional No chills 09/12/2017 Constitutional No diaphoresis 09/12/2017 Constitutional No fever 09/12/2017 Eyes No blindness 2017 Ears/Nose/Throat/Neck No nasal discharge 09/12/2017 Cardiovascular No chest pain/pressure 09/12/2017 Cardiovascular No dyspnea 09/12/2017 Respiratory No chest congestion 09/12/2017 Respiratory No cough 11/2017 Gastrointestinal abdominal pain 09/12/2017 Gastrointestinal constipation 09/12/2017 Gastrointestinal diarrhea 09/12/2017 Gastrointestinal No nausea 09/12/2017 Gastrointestinal No vomiting 09/12/2017 Dermatologic No rash 11/2017 Neurologic No alteration of consciousness 09/12/2017 Neurologic No mental status change 09/12/2017 Constitutional recent illness 09/09/2017 Constitutional No chills 09/09/2017 Constitutional No diaphoresis 09/09/2017 Constitutional No fever 09/09/2017 Eyes No eye erythema 08/2017 Ears/Nose/Throat/Neck No nasal discharge 09/09/2017 Cardiovascular No chest pain/pressure 09/09/2017 Cardiovascular No dyspnea 09/09/2017 Respiratory No chest congestion 09/09/2017 Respiratory No cough 08/2017 Gastrointestinal abdominal pain 09/09/2017 Gastrointestinal constipation 09/09/2017 Gastrointestinal diarrhea 09/09/2017 Gastrointestinal No nausea 09/09/2017 Gastrointestinal No vomiting 09/09/2017 Dermatologic No rash 08/2017 Neurologic No alteration of consciousness 09/09/2017 Neurologic No mental status change 09/09/2017 Constitutional recent illness 08/17/2017 Constitutional No chills 08/17/2017 Constitutional No diaphoresis 08/17/2017 Constitutional No fever 08/17/2017 Eyes No blindness 2017 Ears/Nose/Throat/Neck No nasal discharge 08/17/2017 Cardiovascular No chest pain/pressure 08/17/2017 Cardiovascular No dyspnea 08/17/2017 Respiratory No chest congestion 08/17/2017 Respiratory No cough 03/2018 Gastrointestinal abdominal pain 08/17/2017 Gastrointestinal constipation 08/17/2017 Gastrointestinal diarrhea 08/17/2017 Gastrointestinal No nausea 08/17/2017 Gastrointestinal No vomiting 08/17/2017 Dermatologic No rash 03/2018 Neurologic No alteration of consciousness 08/17/2017 Neurologic No mental status change 08/17/2017 Constitutional recent illness 07/20/2017 Constitutional No chills 07/20/2017 Constitutional No diaphoresis 07/20/2017 Constitutional No fever 07/20/2017 Eyes No blindness 2017 Ears/Nose/Throat/Neck No nasal discharge 07/20/2017 Cardiovascular No chest pain/pressure 07/20/2017 Cardiovascular No dyspnea 07/20/2017 Respiratory No chest congestion 07/20/2017 Respiratory No cough Gastrointestinal abdominal pain 07/20/2017 Gastrointestinal constipation 07/20/2017 Gastrointestinal diarrhea 07/20/2017 Gastrointestinal No nausea 07/20/2017 Gastrointestinal No vomiting 07/20/2017 Dermatologic No rash Neurologic No alteration of consciousness 07/20/2017 Neurologic No mental status change 07/20/2017 Constitutional recent illness 07/01/2017 Constitutional No chills 07/01/2017 Constitutional No diaphoresis 07/01/2017 Constitutional No fever 07/01/2017 Eyes No eye erythema Ears/Nose/Throat/Neck No nasal discharge 07/01/2017 Cardiovascular No chest pain/pressure 07/01/2017 Cardiovascular No dyspnea 07/01/2017 Respiratory No cough Respiratory No chest congestion 07/01/2017 Gastrointestinal abdominal pain 07/01/2017 Gastrointestinal constipation 07/01/2017 Gastrointestinal diarrhea 07/01/2017 Gastrointestinal No vomiting 07/01/2017 Gastrointestinal No nausea 07/01/2017 Dermatologic No rash Neurologic No alteration of consciousness 07/01/2017 Neurologic No mental status change 07/01/2017 Constitutional No recent illness 06/21/2017 Constitutional No anorexia 06/21/2017 Constitutional No night sweats 06/21/2017 Constitutional No chills 06/21/2017 Constitutional No diaphoresis 06/21/2017 Constitutional No fatigue 06/21/2017 Constitutional No fever 06/21/2017 Constitutional No insomnia 06/21/2017 Eyes No eye discharge Eyes No eye erythema Ears/Nose/Throat/Neck No dizziness 06/21/2017 Ears/Nose/Throat/Neck No headache 06/21/2017 Cardiovascular No chest pain/pressure 06/21/2017 Cardiovascular No dyspnea 06/21/2017 Cardiovascular No edema 06/21/2017 Respiratory No productive sputum 06/21/2017 Respiratory No chest congestion 06/21/2017 Gastrointestinal abdominal pain 06/21/2017 Gastrointestinal No constipation 06/21/2017 Gastrointestinal No diarrhea 06/21/2017 Gastrointestinal No nausea 06/21/2017 Gastrointestinal No vomiting 06/21/2017 Genitourinary/Nephrology No dysuria 06/21/2017 Genitourinary/Nephrology No urinary urgenc y 06/21/2017 Musculoskeletal No joint complaint 06/21/2017 Dermatologic No rash Dermatologic No sores Neurologic No alteration of consciousness 06/21/2017 Psychiatric anxiety 06/09 Gastrointestinal gas and bloating 06/21/2017 Constitutional No recent illness 03/21/2017 Constitutional No anorexia 03/21/2017 Constitutional No night sweats 03/21/2017 Constitutional No chills 03/21/2017 Constitutional No diaphoresis 03/21/2017 Constitutional No fatigue 03/21/2017 Constitutional No fever 03/21/2017 Constitutional No insomnia 03/21/2017 Eyes No eye discharge Eyes No eye erythema Ears/Nose/Throat/Neck No dizziness 03/21/2017 Ears/Nose/Throat/Neck No headache 03/21/2017 Cardiovascular No chest pain/pressure 03/21/2017 Cardiovascular No dyspnea 03/21/2017 Cardiovascular No edema 03/21/2017 Respiratory No productive sputum 03/21/2017 Respiratory No chest congestion 03/21/2017 Gastrointestinal abdominal pain 03/21/2017 Gastrointestinal No constipation 03/21/2017 Gastrointestinal No diarrhea 03/21/2017 Gastrointestinal No nausea 03/21/2017 Gastrointestinal No vomiting 03/21/2017 Genitourinary/Nephrology No dysuria 03/21/2017 Genitourinary/Nephrology No urinary urgenc y 03/21/2017 Musculoskeletal No joint complaint 03/21/2017 Dermatologic No rash Dermatologic No sores Neurologic No alteration of consciousness 03/21/2017 Psychiatric anxiety 03/09 Constitutional No recent illness 03/08/2017 Constitutional No anorexia 03/08/2017 Constitutional No night sweats 03/08/2017 Constitutional No chills 03/08/2017 Constitutional No diaphoresis 03/08/2017 Constitutional No fatigue 03/08/2017 Constitutional No fever 03/08/2017 Constitutional No insomnia 03/08/2017 Constitutional No malaise 03/08/2017 Constitutional No weight loss 03/08/2017 Constitutional No weight gain 03/08/2017 Eyes No eye discharge Eyes No eye erythema Ears/Nose/Throat/Neck No headache 03/08/2017 Ears/Nose/Throat/Neck nasal allergies 03/08/2017 Ears/Nose/Throat/Neck No nasal discharge 03/08/2017 Ears/Nose/Throat/Neck otalgia 03/08/2017 Ears/Nose/Throat/Neck No sinus congestion 03/08/2017 Ears/Nose/Throat/Neck No sore throat 03/08/2017 Cardiovascular No chest pain/pressure 03/08/2017 Respiratory No cough Gastrointestinal No abdominal pain 03/08/2017 Dermatologic No rash Neurologic No alteration of consciousness 03/08/2017 Constitutional No recent illness 01/25/2017 Constitutional No anorexia 01/25/2017 Constitutional No night sweats 01/25/2017 Constitutional No chills 01/25/2017 Constitutional No diaphoresis 01/25/2017 Constitutional No fatigue 01/25/2017 Constitutional No fever 01/25/2017 Constitutional No insomnia 01/25/2017 Eyes No eye discharge Eyes No eye erythema Ears/Nose/Throat/Neck No dizziness 01/25/2017 Ears/Nose/Throat/Neck No headache 01/25/2017 Cardiovascular No chest pain/pressure 01/25/2017 Cardiovascular No dyspnea 01/25/2017 Cardiovascular No edema 01/25/2017 Respiratory No productive sputum 01/25/2017 Respiratory No chest congestion 01/25/2017 Gastrointestinal abdominal pain 01/25/2017 Gastrointestinal No constipation 01/25/2017 Gastrointestinal No diarrhea 01/25/2017 Gastrointestinal gas and bloating 01/25/2017 Gastrointestinal No nausea 01/25/2017 Gastrointestinal No vomiting 01/25/2017 Genitourinary/Nephrology No dysuria 01/25/2017 Genitourinary/Nephrology No urinary urgenc y 01/25/2017 Musculoskeletal No joint complaint 01/25/2017 Dermatologic No rash Dermatologic No sores Neurologic No alteration of consciousness 01/25/2017 Psychiatric anxiety 01/07 Constitutional recent illness 12/20/2016 Constitutional fatigue 0 12/20/2016 Ears/Nose/Throat/Neck nasal allergies 12/20/2016 Ears/Nose/Throat/Neck nasal discharge 12/20/2016 Respiratory chest congestion 12/20/2016 Respiratory cough 2016 Psychiatric anxiety 12/07 Constitutional No chills 12/20/2016 Constitutional No diaphoresis 12/20/2016 Constitutional No fever 12/20/2016 Constitutional No malaise 12/20/2016 Eyes No eye discharge Eyes No eye erythema Cardiovascular No chest pain/pressure 12/20/2016 Cardiovascular No dyspnea 12/20/2016 Respiratory No productive sputum 12/20/2016 Respiratory No dyspnea 0 12/20/2016 Gastrointestinal No abdominal pain 12/20/2016 Gastrointestinal No constipation 12/20/2016 Gastrointestinal No diarrhea 12/20/2016 Gastrointestinal No nausea 12/20/2016 Gastrointestinal No vomiting 12/20/2016 Musculoskeletal No joint complaint 12/20/2016 Dermatologic No rash Neurologic No alteration of consciousness 12/20/2016 Neurologic No mental status change 12/20/2016 Respiratory chest congestion 12/01/2016 Respiratory cough 2016 Constitutional recent illness 12/01/2016 Constitutional No chills 12/01/2016 Constitutional No diaphoresis 12/01/2016 Constitutional fatigue 0 12/01/2016 Constitutional No fever 12/01/2016 Constitutional No malaise 12/01/2016 Eyes No eye discharge Eyes No eye erythema Ears/Nose/Throat/Neck nasal allergies 12/01/2016 Ears/Nose/Throat/Neck nasal discharge 12/01/2016 Cardiovascular No chest pain/pressure 12/01/2016 Cardiovascular No dyspnea 12/01/2016 Respiratory No productive sputum 12/01/2016 Respiratory No dyspnea 0 12/01/2016 Gastrointestinal No abdominal pain 12/01/2016 Gastrointestinal No constipation 12/01/2016 Gastrointestinal No diarrhea 12/01/2016 Gastrointestinal No nausea 12/01/2016 Gastrointestinal No vomiting 12/01/2016 Musculoskeletal No joint complaint 12/01/2016 Dermatologic No rash Neurologic No alteration of consciousness 12/01/2016 Neurologic No mental status change 12/01/2016 Psychiatric anxiety 11/07 Constitutional recent illness 11/25/2016 Constitutional No chills 11/25/2016 Constitutional No diaphoresis 11/25/2016 Constitutional fatigue 0 11/25/2016 Constitutional No fever 11/25/2016 Constitutional No malaise 11/25/2016 Eyes No eye discharge Eyes No eye erythema Ears/Nose/Throat/Neck nasal allergies 11/25/2016 Ears/Nose/Throat/Neck nasal discharge 11/25/2016 Cardiovascular No chest pain/pressure 11/25/2016 Cardiovascular No dyspnea 11/25/2016 Respiratory No productive sputum 11/25/2016 Respiratory chest congestion 11/25/2016 Respiratory cough 2016 Respiratory No dyspnea 0 11/25/2016 Gastrointestinal No abdominal pain 11/25/2016 Gastrointestinal No constipation 11/25/2016 Gastrointestinal No diarrhea 11/25/2016 Gastrointestinal No nausea 11/25/2016 Gastrointestinal No vomiting 11/25/2016 Musculoskeletal No joint complaint 11/25/2016 Dermatologic No rash Neurologic No alteration of consciousness 11/25/2016 Neurologic No mental status change 11/25/2016 Psychiatric anxiety 11/07 Constitutional No chills 11/18/2016 Constitutional No diaphoresis 11/18/2016 Constitutional fatigue 0 11/18/2016 Constitutional No fever 11/18/2016 Constitutional No malaise 11/18/2016 Eyes No eye discharge Eyes No eye erythema Ears/Nose/Throat/Neck nasal allergies 11/18/2016 Ears/Nose/Throat/Neck nasal discharge 11/18/2016 Cardiovascular No chest pain/pressure 11/18/2016 Cardiovascular No dyspnea 11/18/2016 Respiratory No productive sputum 11/18/2016 Respiratory chest congestion 11/18/2016 Respiratory cough 2016 Respiratory No dyspnea 0 11/18/2016 Gastrointestinal No abdominal pain 11/18/2016 Gastrointestinal No constipation 11/18/2016 Gastrointestinal No diarrhea 11/18/2016 Gastrointestinal No nausea 11/18/2016 Gastrointestinal No vomiting 11/18/2016 Musculoskeletal No joint complaint 11/18/2016 Dermatologic No rash Neurologic No alteration of consciousness 11/18/2016 Neurologic No mental status change 11/18/2016 Psychiatric anxiety 11/06 Constitutional recent illness 11/18/2016 Constitutional No recent illness 08/23/2016 Constitutional No anorexia 08/23/2016 Constitutional No night sweats 08/23/2016 Constitutional No chills 08/23/2016 Constitutional No diaphoresis 08/23/2016 Constitutional No fatigue 08/23/2016 Constitutional No fever 08/23/2016 Constitutional No insomnia 08/23/2016 Eyes No eye discharge Eyes No eye erythema Ears/Nose/Throat/Neck No dizziness 08/23/2016 Ears/Nose/Throat/Neck No headache 08/23/2016 Cardiovascular No chest pain/pressure 08/23/2016 Cardiovascular No dyspnea 08/23/2016 Cardiovascular No edema 08/23/2016 Respiratory No productive sputum 08/23/2016 Respiratory No chest congestion 08/23/2016 Gastrointestinal abdominal pain 08/23/2016 Gastrointestinal No constipation 08/23/2016 Gastrointestinal No diarrhea 08/23/2016 Gastrointestinal No nausea 08/23/2016 Gastrointestinal No vomiting 08/23/2016 Genitourinary/Nephrology No dysuria 08/23/2016 Genitourinary/Nephrology No urinary urgenc y 08/23/2016 Musculoskeletal No joint complaint 08/23/2016 Dermatologic pigmentation change 08/23/2016 Dermatologic No rash Dermatologic No sores Neurologic No alteration of consciousness 08/23/2016 Neurologic memory loss 0 08/23/2016 Psychiatric anxiety 08/07 Constitutional No recent illness 04/26/2016 Constitutional No anorexia 04/26/2016 Constitutional No night sweats 04/26/2016 Constitutional No chills 04/26/2016 Constitutional No diaphoresis 04/26/2016 Constitutional No fatigue 04/26/2016 Constitutional No fever 04/26/2016 Constitutional No insomnia 04/26/2016 Eyes No eye discharge Eyes No eye erythema Ears/Nose/Throat/Neck No dizziness 04/26/2016 Ears/Nose/Throat/Neck No headache 04/26/2016 Cardiovascular No chest pain/pressure 04/26/2016 Cardiovascular No dyspnea 04/26/2016 Cardiovascular No edema 04/26/2016 Respiratory No productive sputum 04/26/2016 Respiratory No chest congestion 04/26/2016 Gastrointestinal No constipation 04/26/2016 Gastrointestinal No diarrhea 04/26/2016 Gastrointestinal No nausea 04/26/2016 Gastrointestinal No vomiting 04/26/2016 Genitourinary/Nephrology No dysuria 04/26/2016 Genitourinary/Nephrology No urinary urgenc y 04/26/2016 Musculoskeletal No joint complaint 04/26/2016 Dermatologic No rash Dermatologic No sores Neurologic No alteration of consciousness 04/26/2016 Neurologic memory loss 1 06/27/2015 Psychiatric anxiety 04/08 Dermatologic pigmentation change 04/26/2016 Gastrointestinal abdominal pain 04/26/2016 Constitutional No recent illness 02/17/2016 Constitutional No anorexia 02/17/2016 Constitutional No night sweats 02/17/2016 Constitutional No chills 02/17/2016 Constitutional No diaphoresis 02/17/2016 Constitutional No fatigue 02/17/2016 Constitutional No fever 02/17/2016 Constitutional No insomnia 02/17/2016 Constitutional No malaise 02/17/2016 Constitutional No weight loss 02/17/2016 Constitutional No weight gain 02/17/2016 Musculoskeletal joint complaint 02/17/2016 Constitutional No recent illness 02/09/2016 Constitutional No anorexia 02/09/2016 Constitutional No night sweats 02/09/2016 Constitutional No chills 02/09/2016 Constitutional No diaphoresis 02/09/2016 Constitutional No fatigue 02/09/2016 Constitutional No fever 02/09/2016 Constitutional No insomnia 02/09/2016 Constitutional No malaise 02/09/2016 Constitutional No weight loss 02/09/2016 Constitutional No weight gain 02/09/2016 Musculoskeletal joint complaint 02/09/2016 Constitutional No recent illness 02/03/2016 Constitutional No anorexia 02/03/2016 Constitutional No night sweats 02/03/2016 Constitutional No chills 02/03/2016 Constitutional No diaphoresis 02/03/2016 Constitutional No fatigue 02/03/2016 Constitutional No fever 02/03/2016 Constitutional No insomnia 02/03/2016 Constitutional No malaise 02/03/2016 Constitutional No weight loss 02/03/2016 Constitutional No weight gain 02/03/2016 Musculoskeletal joint complaint 02/03/2016 Constitutional No recent illness 01/26/2016 Constitutional No anorexia 01/26/2016 Constitutional No night sweats 01/26/2016 Constitutional No chills 01/26/2016 Constitutional No diaphoresis 01/26/2016 Constitutional No fatigue 01/26/2016 Constitutional No fever 01/26/2016 Constitutional No insomnia 01/26/2016 Constitutional No malaise 01/26/2016 Musculoskeletal joint complaint 01/26/2016 Ears/Nose/Throat/Neck No dizziness 01/26/2016 Ears/Nose/Throat/Neck No headache 01/26/2016 Cardiovascular No chest pain/pressure 01/26/2016 Cardiovascular No edema 01/26/2016 Gastrointestinal abdominal pain 01/26/2016 Genitourinary/Nephrology No dysuria 01/26/2016 Genitourinary/Nephrology No urinary urgenc y 01/26/2016 Neurologic No alteration of consciousness 01/26/2016 Constitutional No chills 01/21/2016 Constitutional No diaphoresis 01/21/2016 Constitutional No fever 01/21/2016 Eyes No eye discharge Eyes No eye erythema Cardiovascular No chest pain/pressure 01/21/2016 Cardiovascular No dyspnea 01/21/2016 Respiratory No productive sputum 01/21/2016 Respiratory No chest congestion 01/21/2016 Gastrointestinal No constipation 01/21/2016 Gastrointestinal No diarrhea 01/21/2016 Gastrointestinal No nausea 01/21/2016 Gastrointestinal No vomiting 01/21/2016 Musculoskeletal No joint complaint 01/21/2016 Dermatologic No rash Neurologic No alteration of consciousness 01/21/2016 Psychiatric anxiety 01/07 Constitutional fatigue 0 01/21/2016 Constitutional No malaise 01/21/2016 Ears/Nose/Throat/Neck nasal allergies 01/21/2016 Ears/Nose/Throat/Neck nasal discharge 01/21/2016 Respiratory cough 2015 Respiratory No dyspnea 0 01/21/2016 Gastrointestinal No abdominal pain 01/21/2016 Neurologic No mental status change 01/21/2016 Constitutional No recent illness 12/29/2015 Constitutional No anorexia 12/29/2015 Constitutional No night sweats 12/29/2015 Constitutional No chills 12/29/2015 Constitutional No diaphoresis 12/29/2015 Constitutional No fatigue 12/29/2015 Constitutional No fever 12/29/2015 Constitutional No insomnia 12/29/2015 Eyes No eye discharge Eyes No eye erythema Ears/Nose/Throat/Neck No dizziness 12/29/2015 Ears/Nose/Throat/Neck No headache 12/29/2015 Cardiovascular No chest pain/pressure 12/29/2015 Cardiovascular No dyspnea 12/29/2015 Cardiovascular No edema 12/29/2015 Respiratory No productive sputum 12/29/2015 Respiratory No chest congestion 12/29/2015 Gastrointestinal abdominal pain 12/29/2015 Gastrointestinal No constipation 12/29/2015 Gastrointestinal No diarrhea 12/29/2015 Gastrointestinal No nausea 12/29/2015 Gastrointestinal No vomiting 12/29/2015 Genitourinary/Nephrology No dysuria 12/29/2015 Genitourinary/Nephrology No urinary urgenc y 12/29/2015 Musculoskeletal No joint complaint 12/29/2015 Dermatologic No rash Dermatologic No sores Neurologic No alteration of consciousness 12/29/2015 Psychiatric anxiety 12/08 Neurologic memory loss 0 12/29/2015 Constitutional No recent illness 09/02/2015 Constitutional No anorexia 09/02/2015 Constitutional No night sweats 09/02/2015 Constitutional No chills 09/02/2015 Constitutional No diaphoresis 09/02/2015 Constitutional No fatigue 09/02/2015 Constitutional No fever 09/02/2015 Constitutional No insomnia 09/02/2015 Eyes No eye discharge Eyes No eye erythema Ears/Nose/Throat/Neck No dizziness 09/02/2015 Ears/Nose/Throat/Neck No headache 09/02/2015 Cardiovascular No chest pain/pressure 09/02/2015 Cardiovascular No dyspnea 09/02/2015 Cardiovascular No edema 09/02/2015 Respiratory No productive sputum 09/02/2015 Respiratory No chest congestion 09/02/2015 Gastrointestinal abdominal pain 09/02/2015 Gastrointestinal No constipation 09/02/2015 Gastrointestinal No diarrhea 09/02/2015 Gastrointestinal No nausea 09/02/2015 Gastrointestinal No vomiting 09/02/2015 Genitourinary/Nephrology No dysuria 09/02/2015 Genitourinary/Nephrology No urinary urgenc y 09/02/2015 Musculoskeletal No joint complaint 09/02/2015 Dermatologic No rash Dermatologic No sores Neurologic No alteration of consciousness 09/02/2015 Psychiatric anxiety 08/08 Constitutional No recent illness 05/06/2015 Constitutional No anorexia 05/06/2015 Constitutional No night sweats 05/06/2015 Constitutional No chills 05/06/2015 Constitutional No diaphoresis 05/06/2015 Constitutional No fatigue 05/06/2015 Constitutional No fever 05/06/2015 Constitutional No insomnia 05/06/2015 Eyes No eye discharge Eyes No eye erythema Ears/Nose/Throat/Neck No dizziness 05/06/2015 Ears/Nose/Throat/Neck No headache 05/06/2015 Cardiovascular No chest pain/pressure 05/06/2015 Cardiovascular No dyspnea 05/06/2015 Cardiovascular No edema 05/06/2015 Respiratory No productive sputum 05/06/2015 Respiratory No chest congestion 05/06/2015 Gastrointestinal abdominal pain 05/06/2015 Gastrointestinal No constipation 05/06/2015 Gastrointestinal No diarrhea 05/06/2015 Gastrointestinal gas and bloating 05/06/2015 Gastrointestinal No nausea 05/06/2015 Gastrointestinal No vomiting 05/06/2015 Genitourinary/Nephrology No dysuria 05/06/2015 Genitourinary/Nephrology No urinary urgenc y 05/06/2015 Musculoskeletal No joint complaint 05/06/2015 Dermatologic No rash Dermatologic No sores Neurologic No alteration of consciousness 05/06/2015 Psychiatric anxiety 04/09 Constitutional No recent illness 03/05/2015 Constitutional No anorexia 03/05/2015 Constitutional No night sweats 03/05/2015 Constitutional No chills 03/05/2015 Constitutional No diaphoresis 03/05/2015 Constitutional No fever 03/05/2015 Constitutional No insomnia 03/05/2015 Constitutional No weight loss 03/05/2015 Constitutional No weight gain 03/05/2015 Eyes No eye discharge Eyes No eye erythema Ears/Nose/Throat/Neck No dizziness 03/05/2015 Ears/Nose/Throat/Neck No headache 03/05/2015 Cardiovascular No chest pain/pressure 03/05/2015 Cardiovascular No dyspnea 03/05/2015 Cardiovascular No edema 03/05/2015 Respiratory No productive sputum 03/05/2015 Respiratory No chest congestion 03/05/2015 Gastrointestinal abdominal pain 03/05/2015 Gastrointestinal No constipation 03/05/2015 Gastrointestinal No diarrhea 03/05/2015 Gastrointestinal gas and bloating 03/05/2015 Gastrointestinal No nausea 03/05/2015 Gastrointestinal No vomiting 03/05/2015 Genitourinary/Nephrology No dysuria 03/05/2015 Genitourinary/Nephrology No urinary urgenc y 03/05/2015 Musculoskeletal No joint complaint 03/05/2015 Dermatologic No rash Dermatologic No sores Neurologic No alteration of consciousness 03/05/2015 Psychiatric anxiety 02/07 Constitutional No fatigue 03/05/2015 Constitutional No recent illness 12/04/2014 Constitutional No anorexia 12/04/2014 Constitutional No night sweats 12/04/2014 Constitutional No chills 12/04/2014 Constitutional No diaphoresis 12/04/2014 Constitutional fatigue 0 12/04/2014 Constitutional No fever 12/04/2014 Constitutional No insomnia 12/04/2014 Constitutional No weight loss 12/04/2014 Constitutional No weight gain 12/04/2014 Eyes No eye discharge Eyes No eye erythema Ears/Nose/Throat/Neck No dizziness 12/04/2014 Ears/Nose/Throat/Neck No headache 12/04/2014 Cardiovascular No chest pain/pressure 12/04/2014 Cardiovascular No dyspnea 12/04/2014 Cardiovascular No edema 12/04/2014 Respiratory No productive sputum 12/04/2014 Respiratory No chest congestion 12/04/2014 Gastrointestinal abdominal pain 12/04/2014 Gastrointestinal No constipation 12/04/2014 Gastrointestinal No diarrhea 12/04/2014 Gastrointestinal gas and bloating 12/04/2014 Gastrointestinal No nausea 12/04/2014 Gastrointestinal No vomiting 12/04/2014 Genitourinary/Nephrology No dysuria 12/04/2014 Genitourinary/Nephrology No urinary urgenc y 12/04/2014 Musculoskeletal No joint complaint 12/04/2014 Dermatologic No rash Dermatologic No sores Neurologic No alteration of consciousness 12/04/2014 Psychiatric anxiety 11/07 Constitutional No recent illness 09/24/2014 Constitutional No anorexia 09/24/2014 Constitutional No night sweats 09/24/2014 Constitutional No chills 09/24/2014 Constitutional No diaphoresis 09/24/2014 Constitutional No weight gain 09/24/2014 Constitutional No weight loss 09/24/2014 Constitutional No insomnia 09/24/2014 Constitutional No fever 09/24/2014 Constitutional fatigue 0 09/24/2014 Eyes No eye discharge Eyes No eye erythema Ears/Nose/Throat/Neck No dizziness 09/24/2014 Ears/Nose/Throat/Neck No headache 09/24/2014 Cardiovascular No chest pain/pressure 09/24/2014 Cardiovascular No dyspnea 09/24/2014 Cardiovascular No edema 09/24/2014 Respiratory No productive sputum 09/24/2014 Respiratory No chest congestion 09/24/2014 Gastrointestinal abdominal pain 09/24/2014 Gastrointestinal No constipation 09/24/2014 Gastrointestinal No diarrhea 09/24/2014 Gastrointestinal No vomiting 09/24/2014 Gastrointestinal No nausea 09/24/2014 Gastrointestinal gas and bloating 09/24/2014 Genitourinary/Nephrology No dysuria 09/24/2014 Genitourinary/Nephrology No urinary urgenc y 09/24/2014 Musculoskeletal No joint complaint 09/24/2014 Dermatologic No rash Dermatologic No sores Neurologic No alteration of consciousness 09/24/2014 Psychiatric anxiety 09/06 Constitutional No anorexia 09/09/2014 Constitutional No fever 09/09/2014 Constitutional No insomnia 09/09/2014 Eyes No eye discharge Eyes No vision change Ears/Nose/Throat/Neck No headache 09/09/2014 Cardiovascular No chest pain/pressure 09/09/2014 Cardiovascular No dyspnea 09/09/2014 Gastrointestinal No abdominal pain 09/09/2014 Gastrointestinal No constipation 09/09/2014 Gastrointestinal No diarrhea 09/09/2014 Genitourinary/Nephrology No dysuria 09/09/2014 Genitourinary/Nephrology No urinary urgenc y 09/09/2014 Genitourinary/Nephrology No urinary frequency 09/09/2014 Musculoskeletal No back pain 09/09/2014 Dermatologic No rash 08/2014 Dermatologic No sores Neurologic No dizziness 09/09/2014 Neurologic No gait abnormality 09/09/2014 Neurologic No pain, back 09/09/2014 Psychiatric No anxiety 0 09/09/2014 Psychiatric depression 0 09/09/2014 Constitutional No night sweats 09/09/2014 Constitutional No chills 09/09/2014 Constitutional No fatigue 09/09/2014 Eyes No blindness 2014 Ears/Nose/Throat/Neck hearing loss 09/09/2014 Ears/Nose/Throat/Neck No hoarseness 09/09/2014 Ears/Nose/Throat/Neck No nasal allergies 09/09/2014 Respiratory No chest congestion 09/09/2014 Respiratory No chest tightness 09/09/2014 Respiratory No cough 08/2014 Gastrointestinal No nausea 09/09/2014 Gastrointestinal No vomiting 09/09/2014 Musculoskeletal No stiffness 09/09/2014 Musculoskeletal No arthralgia(s) 09/09/2014 Neurologic hearing loss 09/09/2014 Neurologic No memory loss 09/09/2014 Constitutional No anorexia 07/26/2014 Constitutional No fever 07/26/2014 Constitutional No insomnia 07/26/2014 Eyes No vision change Eyes No eye discharge Ears/Nose/Throat/Neck No headache 07/26/2014 Cardiovascular No chest pain/pressure 07/26/2014 Cardiovascular No dyspnea 07/26/2014 Respiratory cough 2014 Gastrointestinal No abdominal pain 07/26/2014 Gastrointestinal No constipation 07/26/2014 Gastrointestinal No diarrhea 07/26/2014 Genitourinary/Nephrology No dysuria 07/26/2014 Genitourinary/Nephrology No urinary urgenc y 07/26/2014 Genitourinary/Nephrology No urinary frequency 07/26/2014 Musculoskeletal No back pain 07/26/2014 Dermatologic No rash Dermatologic No sores Neurologic No gait abnormality 07/26/2014 Neurologic No dizziness 07/26/2014 Neurologic No pain, back 07/26/2014 Psychiatric anxiety 2 Psychiatric depression 0 07/26/2014 Constitutional recent illness 07/10/2014 Constitutional No anorexia 07/10/2014 Constitutional No night sweats 07/10/2014 Constitutional chills Constitutional No diaphoresis 07/10/2014 Constitutional fatigue 0 07/10/2014 Constitutional No fever 07/10/2014 Constitutional No insomnia 07/10/2014 Eyes No eye discharge Eyes No eye erythema 08/2014 Ears/Nose/Throat/Neck No dizziness 07/10/2014 Ears/Nose/Throat/Neck No headache 07/10/2014 Ears/Nose/Throat/Neck No nasal allergies 07/10/2014 Ears/Nose/Throat/Neck No nasal discharge 07/10/2014 Ears/Nose/Throat/Neck No otalgia 07/10/2014 Ears/Nose/Throat/Neck No sinus congestion 07/10/2014 Ears/Nose/Throat/Neck No sore throat 07/10/2014 Cardiovascular No chest pain/pressure 07/10/2014 Cardiovascular No dyspnea 07/10/2014 Respiratory No productive sputum 07/10/2014 Respiratory No chest congestion 07/10/2014 Respiratory No cough 08/2014 Gastrointestinal No abdominal pain 07/10/2014 Gastrointestinal No constipation 07/10/2014 Gastrointestinal No diarrhea 07/10/2014 Genitourinary/Nephrology No dysuria 07/10/2014 Musculoskeletal No joint complaint 07/10/2014 Dermatologic No rash 08/2014 Dermatologic No sores Neurologic No alteration of consciousness 07/10/2014 Psychiatric No anxiety 0 07/10/2014 Psychiatric No depression 07/10/2014 Genitourinary/Nephrology No dysuria 06/06/2014 Genitourinary/Nephrology urinary frequency 06/06/2014 Musculoskeletal No joint complaint 06/06/2014 Constitutional recent illness 06/06/2014 Constitutional anorexia 06/06/2014 Constitutional chills Constitutional No diaphoresis 06/06/2014 Constitutional fatigue 0 06/06/2014 Constitutional No fever 06/06/2014 Constitutional insomnia 06/06/2014 Constitutional No malaise 06/06/2014 Constitutional No weight loss 06/06/2014 Constitutional No weight gain 06/06/2014 Eyes No eye discharge Eyes No eye erythema Ears/Nose/Throat/Neck dizziness 06/06/2014 Ears/Nose/Throat/Neck nasal allergies 06/06/2014 Ears/Nose/Throat/Neck No headache 06/06/2014 Ears/Nose/Throat/Neck No otorrhea 06/06/2014 Cardiovascular No chest pain/pressure 06/06/2014 Cardiovascular No dyspnea 06/06/2014 Cardiovascular No edema 06/06/2014 Respiratory No cough Respiratory No chest congestion 06/06/2014 Gastrointestinal No vomiting 06/06/2014 Gastrointestinal No nausea 06/06/2014 Gastrointestinal No constipation 06/06/2014 Gastrointestinal No diarrhea 06/06/2014 Dermatologic No rash Dermatologic No sores Neurologic syncope 06/06 Psychiatric anxiety 05/10 Constitutional recent illness 05/29/2014 Constitutional No anorexia 05/29/2014 Constitutional No night sweats 05/29/2014 Constitutional chills Constitutional No diaphoresis 05/29/2014 Constitutional fatigue 0 05/29/2014 Constitutional No fever 05/29/2014 Constitutional insomnia 05/29/2014 Constitutional malaise 0 05/29/2014 Eyes No eye discharge Eyes No eye erythema Ears/Nose/Throat/Neck No dizziness 05/29/2014 Ears/Nose/Throat/Neck No headache 05/29/2014 Ears/Nose/Throat/Neck nasal allergies 05/29/2014 Ears/Nose/Throat/Neck No otalgia 05/29/2014 Ears/Nose/Throat/Neck No sinus congestion 05/29/2014 Ears/Nose/Throat/Neck No sore throat 05/29/2014 Cardiovascular No chest pain/pressure 05/29/2014 Cardiovascular No dyspnea 05/29/2014 Respiratory No productive sputum 05/29/2014 Respiratory cough 2014 Gastrointestinal No abdominal pain 05/29/2014 Gastrointestinal No diarrhea 05/29/2014 Gastrointestinal No nausea 05/29/2014 Gastrointestinal No vomiting 05/29/2014 Genitourinary/Nephrology No dysuria 05/29/2014 Musculoskeletal No joint complaint 05/29/2014 Dermatologic No rash Dermatologic No sores Neurologic No alteration of consciousness 05/29/2014 Psychiatric anxiety 05/10 Constitutional recent illness 05/20/2014 Constitutional No anorexia 05/20/2014 Constitutional No night sweats 05/20/2014 Constitutional chills Constitutional No diaphoresis 05/20/2014 Constitutional fatigue 0 05/20/2014 Constitutional No fever 05/20/2014 Constitutional No insomnia 05/20/2014 Constitutional No malaise 05/20/2014 Eyes No eye discharge Eyes No eye erythema 04/2015 Gastrointestinal No diarrhea 05/20/2014 Gastrointestinal No vomiting 05/20/2014 Gastrointestinal No nausea 05/20/2014 Gastrointestinal No abdominal pain 05/20/2014 Genitourinary/Nephrology No dysuria 05/20/2014 Respiratory cough 2014 Respiratory No productive sputum 05/20/2014 Musculoskeletal No joint complaint 05/20/2014 Dermatologic No rash 04/2015 Dermatologic No sores Neurologic No alteration of consciousness 05/20/2014 Ears/Nose/Throat/Neck No headache 05/20/2014 Ears/Nose/Throat/Neck nasal allergies 05/20/2014 Ears/Nose/Throat/Neck No otalgia 05/20/2014 Ears/Nose/Throat/Neck No sinus congestion 05/20/2014 Ears/Nose/Throat/Neck No sore throat 05/20/2014 Ears/Nose/Throat/Neck No dizziness 05/20/2014 Cardiovascular No chest pain/pressure 05/20/2014 Cardiovascular No dyspnea 05/20/2014 Psychiatric anxiety 05/09 Constitutional No insomnia 03/25/2014 Constitutional No fatigue 03/25/2014 Constitutional recent illness 03/25/2014 Cardiovascular No chest pain/pressure 03/25/2014 Cardiovascular No dyspnea 03/25/2014 Respiratory cough 2013 Gastrointestinal No constipation 03/25/2014 Gastrointestinal No diarrhea 03/25/2014 Gastrointestinal No dyspepsia 03/25/2014 Gastrointestinal No abdominal pain 03/25/2014 Genitourinary/Nephrology No dysuria 03/25/2014 Psychiatric No anxiety 1 05/25/2013 Psychiatric No depression 03/25/2014 Musculoskeletal No arthralgia(s) 03/25/2014 Constitutional No anorexia 03/25/2014 Constitutional No night sweats 03/25/2014 Constitutional chills Constitutional No diaphoresis 03/25/2014 Constitutional No fever 03/25/2014 Eyes No eye discharge Eyes No eye erythema Ears/Nose/Throat/Neck No dizziness 03/25/2014 Ears/Nose/Throat/Neck No headache 03/25/2014 Ears/Nose/Throat/Neck No nasal allergies 03/25/2014 Ears/Nose/Throat/Neck No nasal discharge 03/25/2014 Ears/Nose/Throat/Neck No otalgia 03/25/2014 Ears/Nose/Throat/Neck No sinus congestion 03/25/2014 Ears/Nose/Throat/Neck No sore throat 03/25/2014 Respiratory No productive sputum 03/25/2014 Respiratory No chest congestion 03/25/2014 Musculoskeletal No joint complaint 03/25/2014 Dermatologic No rash Dermatologic No sores Neurologic No alteration of consciousness 03/25/2014 Constitutional No recent illness 02/08/2014 Constitutional No anorexia 02/08/2014 Constitutional No night sweats 02/08/2014 Constitutional No chills 02/08/2014 Constitutional No diaphoresis 02/08/2014 Constitutional No fatigue 02/08/2014 Constitutional No fever 02/08/2014 Psychiatric No depression 02/08/2014 Psychiatric No anxiety 1 Neurologic No memory loss 02/08/2014 Neurologic hearing loss 02/08/2014 Neurologic No headache 1 Neurologic No gait abnormality 02/08/2014 Neurologic No dizziness 02/08/2014 Dermatologic No sores Dermatologic No rash 07/2013 Respiratory No chest congestion 02/08/2014 Respiratory No chest tightness 02/08/2014 Gastrointestinal No abdominal pain 02/08/2014 Gastrointestinal No constipation 02/08/2014 Gastrointestinal No nausea 02/08/2014 Gastrointestinal No vomiting 02/08/2014 Gastrointestinal No diarrhea 02/08/2014 Musculoskeletal No stiffness 02/08/2014 Musculoskeletal No arthralgia(s) 02/08/2014 Eyes No eye discharge Eyes No eye erythema 07/2013 Ears/Nose/Throat/Neck No dizziness 02/08/2014 Ears/Nose/Throat/Neck No headache 02/08/2014 Ears/Nose/Throat/Neck nasal allergies 02/08/2014 Ears/Nose/Throat/Neck No nasal discharge 02/08/2014 Ears/Nose/Throat/Neck No sinus congestion 02/08/2014 Ears/Nose/Throat/Neck No sore throat 02/08/2014 Cardiovascular No chest pain/pressure 02/08/2014 Gastrointestinal No gas and bloating 02/08/2014 Gastrointestinal No gastroesophageal reflu x 02/08/2014 Constitutional No night sweats 12/24/2013 Constitutional No chills 12/24/2013 Constitutional No fatigue 12/24/2013 Constitutional No fever 12/24/2013 Eyes No blindness 2013 Eyes No vision change Ears/Nose/Throat/Neck No dizziness 12/24/2013 Ears/Nose/Throat/Neck facial pain 12/24/2013 Ears/Nose/Throat/Neck hearing loss 12/24/2013 Ears/Nose/Throat/Neck No hoarseness 12/24/2013 Ears/Nose/Throat/Neck nasal allergies 12/24/2013 Ears/Nose/Throat/Neck nasal discharge 12/24/2013 Cardiovascular No dyspnea 12/24/2013 Cardiovascular No exercise intolerance 12/24/2013 Cardiovascular No fatigue 12/24/2013 Cardiovascular hypertension 12/24/2013 Respiratory No chest congestion 12/24/2013 Respiratory No chest tightness 12/24/2013 Respiratory No cough Gastrointestinal No abdominal pain 12/24/2013 Gastrointestinal No constipation 12/24/2013 Gastrointestinal No diarrhea 12/24/2013 Gastrointestinal No nausea 12/24/2013 Gastrointestinal No vomiting 12/24/2013 Musculoskeletal No stiffness 12/24/2013 Musculoskeletal No arthralgia(s) 12/24/2013 Dermatologic No rash Dermatologic No sores Neurologic No dizziness 12/24/2013 Neurologic No gait abnormality 12/24/2013 Neurologic No headache 0 12/24/2013 Neurologic hearing loss 12/24/2013 Neurologic No memory loss 12/24/2013 Psychiatric No anxiety 0 12/24/2013 Psychiatric No depression 12/24/2013 Constitutional No night sweats 11/20/2013 Constitutional No chills 11/20/2013 Constitutional No fatigue 11/20/2013 Constitutional No fever 11/20/2013 Eyes No blindness 2013 Eyes No vision change Ears/Nose/Throat/Neck No dizziness 11/20/2013 Ears/Nose/Throat/Neck hearing loss 11/20/2013 Ears/Nose/Throat/Neck No hoarseness 11/20/2013 Respiratory No chest congestion 11/20/2013 Respiratory No chest tightness 11/20/2013 Respiratory No cough Gastrointestinal No abdominal pain 11/20/2013 Gastrointestinal No constipation 11/20/2013 Gastrointestinal No diarrhea 11/20/2013 Gastrointestinal No nausea 11/20/2013 Gastrointestinal No vomiting 11/20/2013 Musculoskeletal No stiffness 11/20/2013 Musculoskeletal No arthralgia(s) 11/20/2013 Dermatologic No rash Dermatologic No sores Neurologic No dizziness 11/20/2013 Neurologic No gait abnormality 11/20/2013 Neurologic No headache 0 11/20/2013 Neurologic hearing loss 11/20/2013 Neurologic No memory loss 11/20/2013 Psychiatric No anxiety 0 11/20/2013 Psychiatric No depression 11/20/2013 Ears/Nose/Throat/Neck facial pain 11/20/2013 Ears/Nose/Throat/Neck nasal allergies 11/20/2013 Ears/Nose/Throat/Neck nasal discharge 11/20/2013 Cardiovascular hypertension 11/20/2013 Cardiovascular No fatigue 11/20/2013 Cardiovascular No exercise intolerance 11/20/2013 Cardiovascular No dyspnea 11/20/2013 Respiratory No productive sputum 10/30/2013 Respiratory No chest congestion 10/30/2013 Respiratory No cough Cardiovascular No chest pain/pressure 10/30/2013 Cardiovascular No dyspnea 10/30/2013 Ears/Nose/Throat/Neck No nasal allergies 10/30/2013 Ears/Nose/Throat/Neck No nasal discharge 10/30/2013 Ears/Nose/Throat/Neck No dizziness 10/30/2013 Ears/Nose/Throat/Neck No headache 10/30/2013 Ears/Nose/Throat/Neck No otalgia 10/30/2013 Ears/Nose/Throat/Neck No sinus congestion 10/30/2013 Ears/Nose/Throat/Neck No sore throat 10/30/2013 Eyes No eye erythema Eyes No eye discharge Constitutional recent illness 10/30/2013 Constitutional No anorexia 10/30/2013 Constitutional No night sweats 10/30/2013 Constitutional chills Constitutional No diaphoresis 10/30/2013 Constitutional fatigue 0 10/30/2013 Constitutional No fever 10/30/2013 Constitutional No insomnia 10/30/2013 Gastrointestinal No abdominal pain 10/30/2013 Gastrointestinal No constipation 10/30/2013 Gastrointestinal No diarrhea 10/30/2013 Genitourinary/Nephrology No dysuria 10/30/2013 Musculoskeletal No joint complaint 10/30/2013 Dermatologic No rash Dermatologic No sores Neurologic No alteration of consciousness 10/30/2013 Constitutional No night sweats 10/08/2013 Constitutional No chills 10/08/2013 Constitutional fatigue 0 10/08/2013 Constitutional No fever 10/08/2013 Eyes No blindness 2013 Eyes No vision change Ears/Nose/Throat/Neck No dizziness 10/08/2013 Ears/Nose/Throat/Neck hearing loss 10/08/2013 Ears/Nose/Throat/Neck No hoarseness 10/08/2013 Ears/Nose/Throat/Neck nasal allergies 10/08/2013 Respiratory No chest congestion 10/08/2013 Respiratory No chest tightness 10/08/2013 Respiratory No cough 06/2013 Gastrointestinal No abdominal pain 10/08/2013 Gastrointestinal No constipation 10/08/2013 Gastrointestinal No diarrhea 10/08/2013 Gastrointestinal No nausea 10/08/2013 Gastrointestinal No vomiting 10/08/2013 Musculoskeletal No stiffness 10/08/2013 Musculoskeletal No arthralgia(s) 10/08/2013 Dermatologic No rash 06/2013 Dermatologic No sores Neurologic No dizziness 10/08/2013 Neurologic No gait abnormality 10/08/2013 Neurologic No headache 0 10/08/2013 Neurologic hearing loss 10/08/2013 Neurologic No memory loss 10/08/2013 Psychiatric No anxiety 0 10/08/2013 Psychiatric No depression 10/08/2013 Ears/Nose/Throat/Neck sore throat 10/08/2013 Ears/Nose/Throat/Neck facial pain 10/08/2013 Constitutional No night sweats 06/18/2013 Constitutional No chills 06/18/2013 Constitutional No fatigue 06/18/2013 Constitutional No fever 06/18/2013 Eyes No blindness 2013 Eyes No vision change Ears/Nose/Throat/Neck No dizziness 06/18/2013 Ears/Nose/Throat/Neck hearing loss 06/18/2013 Ears/Nose/Throat/Neck No hoarseness 06/18/2013 Ears/Nose/Throat/Neck No nasal allergies 06/18/2013 Respiratory No chest congestion 06/18/2013 Respiratory No chest tightness 06/18/2013 Respiratory No cough 02/2014 Gastrointestinal No abdominal pain 06/18/2013 Gastrointestinal No constipation 06/18/2013 Gastrointestinal No diarrhea 06/18/2013 Gastrointestinal No nausea 06/18/2013 Gastrointestinal No vomiting 06/18/2013 Musculoskeletal No stiffness 06/18/2013 Musculoskeletal No arthralgia(s) 06/18/2013 Dermatologic No rash 02/2014 Dermatologic No sores Neurologic No dizziness 06/18/2013 Neurologic No gait abnormality 06/18/2013 Neurologic No headache 0 06/18/2013 Neurologic hearing loss 06/18/2013 Neurologic No memory loss 06/18/2013 Psychiatric No anxiety 0 06/18/2013 Psychiatric No depression 06/18/2013 Constitutional No night sweats 04/04/2013 Constitutional No chills 04/04/2013 Constitutional No fatigue 04/04/2013 Constitutional No fever 04/04/2013 Eyes No blindness 2012 Eyes No vision change Ears/Nose/Throat/Neck No dizziness 04/04/2013 Ears/Nose/Throat/Neck hearing loss 04/04/2013 Ears/Nose/Throat/Neck No hoarseness 04/04/2013 Ears/Nose/Throat/Neck No nasal allergies 04/04/2013 Respiratory No chest congestion 04/04/2013 Respiratory No chest tightness 04/04/2013 Respiratory No cough Gastrointestinal No abdominal pain 04/04/2013 Gastrointestinal No constipation 04/04/2013 Gastrointestinal No diarrhea 04/04/2013 Gastrointestinal No nausea 04/04/2013 Gastrointestinal No vomiting 04/04/2013 Musculoskeletal No stiffness 04/04/2013 Musculoskeletal No arthralgia(s) 04/04/2013 Dermatologic No rash Dermatologic No sores Neurologic No dizziness 04/04/2013 Neurologic No gait abnormality 04/04/2013 Neurologic No headache 1 06/04/2012 Neurologic hearing loss 04/04/2013 Neurologic No memory loss 04/04/2013 Psychiatric No anxiety 1 06/04/2012 Psychiatric No depression 04/04/2013 Constitutional No night sweats 02/19/2013 Constitutional No chills 02/19/2013 Constitutional No fatigue 02/19/2013 Constitutional No fever 02/19/2013 Eyes No blindness 2012 Eyes No vision change Ears/Nose/Throat/Neck No dizziness 02/19/2013 Ears/Nose/Throat/Neck hearing loss 02/19/2013 Ears/Nose/Throat/Neck No hoarseness 02/19/2013 Ears/Nose/Throat/Neck No nasal allergies 02/19/2013 Respiratory No chest congestion 02/19/2013 Respiratory No chest tightness 02/19/2013 Respiratory No cough Gastrointestinal No abdominal pain 02/19/2013 Gastrointestinal No constipation 02/19/2013 Gastrointestinal No diarrhea 02/19/2013 Gastrointestinal No nausea 02/19/2013 Gastrointestinal No vomiting 02/19/2013 Musculoskeletal No stiffness 02/19/2013 Musculoskeletal No arthralgia(s) 02/19/2013 Dermatologic No rash Dermatologic No sores Neurologic No dizziness 02/19/2013 Neurologic No gait abnormality 02/19/2013 Neurologic No headache 1 Neurologic hearing loss 02/19/2013 Neurologic No memory loss 02/19/2013 Psychiatric No anxiety 1 Psychiatric No depression 02/19/2013 Constitutional No night sweats 10/16/2012 Constitutional No chills 10/16/2012 Constitutional No fatigue 10/16/2012 Constitutional No fever 10/16/2012 Eyes No blindness 2012 Eyes No vision change Ears/Nose/Throat/Neck No dizziness 10/16/2012 Ears/Nose/Throat/Neck hearing loss 10/16/2012 Ears/Nose/Throat/Neck No hoarseness 10/16/2012 Ears/Nose/Throat/Neck No nasal allergies 10/16/2012 Respiratory No chest congestion 10/16/2012 Respiratory No chest tightness 10/16/2012 Respiratory No cough 02/2013 Gastrointestinal No abdominal pain 10/16/2012 Gastrointestinal No constipation 10/16/2012 Gastrointestinal No diarrhea 10/16/2012 Gastrointestinal No nausea 10/16/2012 Gastrointestinal No vomiting 10/16/2012 Musculoskeletal No stiffness 10/16/2012 Musculoskeletal No arthralgia(s) 10/16/2012 Dermatologic No rash 02/2013 Dermatologic No sores Neurologic No dizziness 10/16/2012 Neurologic No gait abnormality 10/16/2012 Neurologic No headache 0 10/16/2012 Neurologic hearing loss 10/16/2012 Psychiatric No anxiety 0 10/16/2012 Psychiatric No depression 10/16/2012 Neurologic No memory loss 10/16/2012 Constitutional No night sweats 06/19/2012 Constitutional No chills 06/19/2012 Constitutional No fatigue 06/19/2012 Constitutional No fever 06/19/2012 Eyes No blindness 2012 Eyes No vision change Respiratory No chest congestion 06/19/2012 Respiratory No chest tightness 06/19/2012 Respiratory No cough 03/2013 Gastrointestinal No abdominal pain 06/19/2012 Gastrointestinal No constipation 06/19/2012 Gastrointestinal No diarrhea 06/19/2012 Gastrointestinal No nausea 06/19/2012 Gastrointestinal No vomiting 06/19/2012 Musculoskeletal No stiffness 06/19/2012 Musculoskeletal No arthralgia(s) 06/19/2012 Dermatologic No rash 03/2013 Dermatologic No sores Neurologic No dizziness 06/19/2012 Neurologic No gait abnormality 06/19/2012 Neurologic No headache 0 06/19/2012 Neurologic hearing loss 06/19/2012 Psychiatric No anxiety 0 06/19/2012 Psychiatric No depression 06/19/2012 Ears/Nose/Throat/Neck No dizziness 06/19/2012 Ears/Nose/Throat/Neck hearing loss 06/19/2012 Ears/Nose/Throat/Neck No hoarseness 06/19/2012 Ears/Nose/Throat/Neck No nasal allergies 06/19/2012 Constitutional No night sweats 03/20/2012 Constitutional No chills 03/20/2012 Constitutional No fatigue 03/20/2012 Constitutional No fever 03/20/2012 Eyes No blindness 2011 Eyes No vision change Respiratory No chest congestion 03/20/2012 Respiratory No chest tightness 03/20/2012 Respiratory No cough 04/2012 Gastrointestinal No abdominal pain 03/20/2012 Gastrointestinal No constipation 03/20/2012 Gastrointestinal No diarrhea 03/20/2012 Gastrointestinal No nausea 03/20/2012 Gastrointestinal No vomiting 03/20/2012 Musculoskeletal No stiffness 03/20/2012 Musculoskeletal No arthralgia(s) 03/20/2012 Dermatologic No rash 04/2012 Dermatologic No sores Neurologic No dizziness 03/20/2012 Neurologic No gait abnormality 03/20/2012 Neurologic No headache 1 05/20/2011 Neurologic hearing loss 03/20/2012 Psychiatric No anxiety 1 05/20/2011 Psychiatric No depression 03/20/2012 Constitutional No night sweats 01/24/2012 Constitutional No chills 01/24/2012 Constitutional No fatigue 01/24/2012 Constitutional No fever 01/24/2012 Eyes No blindness 2011 Eyes No vision change Respiratory No chest congestion 01/24/2012 Respiratory No chest tightness 01/24/2012 Respiratory No cough Gastrointestinal No abdominal pain 01/24/2012 Gastrointestinal No constipation 01/24/2012 Gastrointestinal No diarrhea 01/24/2012 Gastrointestinal No nausea 01/24/2012 Gastrointestinal No vomiting 01/24/2012 Musculoskeletal No stiffness 01/24/2012 Musculoskeletal No arthralgia(s) 01/24/2012 Dermatologic No rash Dermatologic No sores Neurologic No dizziness 01/24/2012 Neurologic No gait abnormality 01/24/2012 Neurologic No headache 0 01/24/2012 Neurologic hearing loss 01/24/2012 Psychiatric No anxiety 0 01/24/2012 Psychiatric No depression 01/24/2012 Constitutional No night sweats 12/20/2011 Constitutional No chills 12/20/2011 Constitutional No fatigue 12/20/2011 Constitutional No fever 12/20/2011 Respiratory No chest congestion 12/20/2011 Respiratory No chest tightness 12/20/2011 Respiratory No cough Gastrointestinal No abdominal pain 12/20/2011 Gastrointestinal No constipation 12/20/2011 Gastrointestinal No diarrhea 12/20/2011 Gastrointestinal No nausea 12/20/2011 Gastrointestinal No vomiting 12/20/2011 Musculoskeletal No stiffness 12/20/2011 Musculoskeletal No arthralgia(s) 12/20/2011 Dermatologic No rash Dermatologic No sores Neurologic No dizziness 12/20/2011 Neurologic No gait abnormality 12/20/2011 Neurologic No headache 0 12/20/2011 Neurologic hearing loss 12/20/2011 Psychiatric No anxiety 0 12/20/2011 Psychiatric No depression 12/20/2011 Eyes No blindness 2011 Eyes No vision change Constitutional No recent illness 12/09/2011 Constitutional No anorexia 12/09/2011 Constitutional No night sweats 12/09/2011 Constitutional No chills 12/09/2011 Constitutional No diaphoresis 12/09/2011 Constitutional No fatigue 12/09/2011 Constitutional No fever 12/09/2011 Constitutional No insomnia 12/09/2011 Constitutional No malaise 12/09/2011 Cardiovascular No chest pain/pressure 12/09/2011 Respiratory No productive sputum 12/09/2011 Respiratory No cough 06/2011 Ears/Nose/Throat/Neck No dizziness 12/09/2011 Ears/Nose/Throat/Neck No nasal allergies 12/09/2011 Ears/Nose/Throat/Neck No nasal discharge 12/09/2011 Ears/Nose/Throat/Neck No headache 12/09/2011 Eyes No eye discharge Eyes No eye erythema 06/2011 Gastrointestinal No abdominal pain 12/09/2011 Gastrointestinal No vomiting 12/09/2011 Gastrointestinal No nausea 12/09/2011 Gastrointestinal No constipation 12/09/2011 Genitourinary/Nephrology No dysuria 12/09/2011 Musculoskeletal No joint complaint 12/09/2011 Neurologic No alteration of consciousness 12/09/2011 Neurologic No dizziness 12/09/2011 Neurologic No syncope Cardiovascular No dyspnea 12/09/2011 Cardiovascular No edema 12/09/2011 Gastrointestinal No vomiting 08/25/2011 Gastrointestinal No nausea 08/25/2011 Constitutional No fever 08/25/2011 Constitutional No fatigue 08/25/2011 Constitutional No night sweats 08/25/2011 Gastrointestinal No constipation 08/25/2011 Gastrointestinal No diarrhea 08/25/2011 Constitutional No chills 08/25/2011 Respiratory No chest congestion 08/25/2011 Respiratory No chest tightness 08/25/2011 Respiratory No cough Gastrointestinal No abdominal pain 08/25/2011 Psychiatric No anxiety 0 08/25/2011 Psychiatric No depression 08/25/2011 Dermatologic No rash Dermatologic No sores Musculoskeletal No stiffness 08/25/2011 Musculoskeletal No arthralgia(s) 08/25/2011 Neurologic No dizziness 08/25/2011 Neurologic No gait abnormality 08/25/2011 Neurologic No headache 0 08/25/2011 Neurologic hearing loss 08/25/2011 Constitutional No night sweats 06/23/2011 Constitutional No chills 06/23/2011 Constitutional No fatigue 06/23/2011 Constitutional No fever 06/23/2011 Eyes No vision change Ears/Nose/Throat/Neck No dizziness 06/23/2011 Ears/Nose/Throat/Neck No headache 06/23/2011 Respiratory No chest congestion 06/23/2011 Respiratory No chest tightness 06/23/2011 Respiratory No cough Gastrointestinal No abdominal pain 06/23/2011 Gastrointestinal No constipation 06/23/2011 Gastrointestinal No diarrhea 06/23/2011 Psychiatric No anxiety 0 06/23/2011 Psychiatric No depression 06/23/2011 Musculoskeletal No stiffness 06/23/2011 Musculoskeletal No arthralgia(s) 06/23/2011 Genitourinary/Nephrology No urinary urgenc y 06/23/2011 Dermatologic No rash Dermatologic No sores Neurologic No dizziness 06/23/2011 Neurologic No gait abnormality 06/23/2011 Neurologic No headache 0 06/23/2011 Neurologic hearing loss 06/23/2011 Constitutional No anorexia 04/19/2011 Constitutional No diaphoresis 04/19/2011 Constitutional No fatigue 04/19/2011 Eyes No vision change Ears/Nose/Throat/Neck No dizziness 04/19/2011 Ears/Nose/Throat/Neck No headache 04/19/2011 Respiratory No chest congestion 04/19/2011 Respiratory No chest tightness 04/19/2011 Respiratory No cough 04/2011 Gastrointestinal No diarrhea 04/19/2011 Gastrointestinal No constipation 04/19/2011 Musculoskeletal No joint complaint 04/19/2011 Musculoskeletal No arthralgia(s) 04/19/2011 Neurologic No headache 1 06/20/2010 Neurologic No memory loss 04/19/2011 Neurologic No dizziness 04/19/2011 Psychiatric No anxiety 1 06/20/2010 Psychiatric No depression 04/19/2011 Constitutional No night sweats 03/08/2011 Constitutional No chills 03/08/2011 Constitutional No fatigue 03/08/2011 Constitutional No fever 03/08/2011 Eyes No vision change Ears/Nose/Throat/Neck No dizziness 03/08/2011 Ears/Nose/Throat/Neck No headache 03/08/2011 Respiratory No chest congestion 03/08/2011 Respiratory No chest tightness 03/08/2011 Respiratory No cough Gastrointestinal No abdominal pain 03/08/2011 Gastrointestinal No constipation 03/08/2011 Gastrointestinal No diarrhea 03/08/2011 Psychiatric No anxiety 1 Psychiatric No depression 03/08/2011 Constitutional No night sweats 03/01/2011 Constitutional No chills 03/01/2011 Constitutional No fever 03/01/2011 Constitutional No fatigue 03/01/2011 Eyes No vision change Ears/Nose/Throat/Neck No dizziness 03/01/2011 Ears/Nose/Throat/Neck No headache 03/01/2011 Respiratory No chest congestion 03/01/2011 Respiratory No chest tightness 03/01/2011 Respiratory No cough Gastrointestinal No abdominal pain 03/01/2011 Gastrointestinal No constipation 03/01/2011 Gastrointestinal No diarrhea 03/01/2011 Psychiatric No anxiety 1 Psychiatric No depression 03/01/2011 Psychiatric No depression 02/01/2011 Psychiatric disturbances of memory 02/01/2011 Constitutional No anorexia 02/01/2011 Constitutional No chills 02/01/2011 Constitutional No fatigue 02/01/2011 Eyes No vision change Ears/Nose/Throat/Neck No dizziness 02/01/2011 Ears/Nose/Throat/Neck No headache 02/01/2011 Cardiovascular No chest pain/pressure 02/01/2011 Cardiovascular No fatigue 02/01/2011 Cardiovascular No edema 02/01/2011 Cardiovascular No dyspnea 02/01/2011 Respiratory No cough Respiratory No chest tightness 02/01/2011 Gastrointestinal abdominal pain 02/01/2011 Genitourinary/Nephrology urinary urgency 02/01/2011 Genitourinary/Nephrology urinary ret ention/hesitancy 02/01/2011 Genitourinary/Nephrology testicular pain 02/01/2011 Musculoskeletal No swelling 02/01/2011 Musculoskeletal No arthralgia(s) 02/01/2011 Musculoskeletal No back pain 02/01/2011 Dermatologic No sores Dermatologic No rash Psychiatric anxiety 01/08 Constitutional No night sweats 01/27/2011 Constitutional recent illness 01/27/2011 Constitutional No chills 01/27/2011 Constitutional No fever 01/27/2011 Constitutional No fatigue 01/27/2011 Eyes No eye discharge Eyes No eye erythema Cardiovascular No chest pain/pressure 01/27/2011 Respiratory No cough Gastrointestinal No nausea 01/27/2011 Gastrointestinal No vomiting 01/27/2011 Genitourinary/Nephrology No dysuria 01/27/2011 Genitourinary/Nephrology No genital lesion 01/27/2011 Genitourinary/Nephrology testicular pain 01/27/2011 Genitourinary/Nephrology No testicular mas s 01/27/2011 Constitutional No chills 01/26/2011 Constitutional No anorexia 01/26/2011 Constitutional No fatigue 01/26/2011 Constitutional No fever 01/26/2011 Cardiovascular No chest pain/pressure 01/26/2011 Gastrointestinal gas and bloating 01/26/2011 Gastrointestinal No abdominal pain 01/26/2011 Constitutional No malaise 01/26/2011 Constitutional No chills 01/15/2011 Constitutional No fever 01/15/2011 Constitutional No fatigue 01/15/2011 Eyes No vision change Cardiovascular No chest pain/pressure 01/15/2011 Cardiovascular No palpitations 01/15/2011 Gastrointestinal No nausea 01/15/2011 Gastrointestinal No vomiting 01/15/2011 Gastrointestinal No constipation 01/15/2011 Gastrointestinal No diarrhea 01/15/2011 Gastrointestinal gas and bloating 01/15/2011 Gastrointestinal No abdominal pain 01/15/2011 Genitourinary/Nephrology No dysuria 01/15/2011 Genitourinary/Nephrology No hematuria 01/15/2011 Genitourinary/Nephrology nocturia 01/15/2011 Genitourinary/Nephrology No penile p ain and discharge 01/15/2011 Genitourinary/Nephrology No polyuria 01/15/2011 Genitourinary/Nephrology urinary ret ention/hesitancy 01/15/2011 Genitourinary/Nephrology No urinary incontinence 01/15/2011 Genitourinary/Nephrology urinary frequency 01/15/2011 Dermatologic No rash 01/2011 Neurologic No dizziness 01/15/2011 Neurologic No gait abnormality 01/15/2011 Neurologic No headache 0 01/15/2011 Genitourinary/Nephrology No dysuria 01/06/2011 Genitourinary/Nephrology No hernia 01/06/2011 Genitourinary/Nephrology No urinary urgenc y 01/06/2011 Genitourinary/Nephrology No urinary frequency 01/06/2011 Genitourinary/Nephrology No urinary incontinence 01/06/2011 Musculoskeletal No arthralgia(s) 01/06/2011 Musculoskeletal No back pain 01/06/2011 Musculoskeletal No muscle weakness 01/06/2011 Musculoskeletal No myalgias 01/06/2011 Respiratory No chest congestion 01/06/2011 Respiratory No chest tightness 01/06/2011 Respiratory No cough Respiratory No dyspnea on exertion 01/06/2011 Respiratory No dyspnea 0 01/06/2011 Gastrointestinal diarrhea 01/06/2011 Gastrointestinal No constipation 01/06/2011 Gastrointestinal No anorexia 01/06/2011 Gastrointestinal No gas and bloating 01/06/2011 Gastrointestinal No gastroesophageal reflu x 01/06/2011 Gastrointestinal No nausea 01/06/2011 Gastrointestinal No vomiting 01/06/2011 Gastrointestinal No jaundice 01/06/2011 Dermatologic No rash Dermatologic No sores Neurologic No aphasia Neurologic No ataxia Neurologic No dizziness 01/06/2011 Neurologic No gait abnormality 01/06/2011 Neurologic No headache 0 01/06/2011 Neurologic No memory loss 01/06/2011 Psychiatric No anxiety 0 01/06/2011 Psychiatric No depression 01/06/2011 Psychiatric disturbances of consciousness 01/06/2011 Psychiatric No disturbances of emotion 01/06/2011 Psychiatric disturbances of memory 01/06/2011 Psychiatric No hallucination 01/06/2011 Hematologic/Lymphatic No abnormal ec chymoses 01/06/2011 Hematologic/Lymphatic No abnormal bl eeding and bruising 01/06/2011 Allergy/Immunology No rhinitis 01/06/2011 Constitutional fever Constitutional No chills 01/06/2011 Eyes No vision change Ears/Nose/Throat/Neck No dizziness 01/06/2011 Ears/Nose/Throat/Neck No dysphagia 01/06/2011 Ears/Nose/Throat/Neck No neck pain 01/06/2011 Cardiovascular No chest pain/pressure 01/06/2011 Cardiovascular No dyspnea 01/06/2011 Cardiovascular No edema 01/06/2011 Cardiovascular fatigue 0 01/06/2011 Physical Exam Exam Name System Name It em Name Status Result Effective Dates Notes Full Exam - General 1994 Constitutional general appearance Overall: well developed 01/16/2019 None Full Exam - General 1994 Constitutional general appearance Overall: in no acute distress 01/16/2019 None Full Exam - General 1994 Constitutional general appearance Overall: well nourished 01/16/2019 None Full Exam - General 1994 Eyes pupils and irises Overall: pupils equal, round, reactive to light and accomodation 01/16/2019 None Full Exam - General 1994 Ears/Nose/Throat otoscopic exam Overall: external auditory canals clear 01/16/2019 None Full Exam - General 1994 Ears/Nose/Throat otoscopic exam Overall: tympanic membranes clear 01/16/2019 None Full Exam - General 1994 Ears/Nose/Throat oral cavity/pharynx/larynx Overall: oral mucosa clear 01/16/2019 None Full Exam - General 1994 Ears/Nose/Throat oral cavity/pharynx/larynx Overall: oropharyngeal mucosa clear 01/16/2019 None Full Exam - General 1994 Ears/Nose/Throat oral cavity/pharynx/larynx Overall: no masses 01/16/2019 None Full Exam - General 1994 Respiratory auscultation Overall: breath sounds clear bilaterally 01/16/2019 None Full Exam - General 1994 Respiratory respiratory effort/rhythm Overall: no retractions 01/16/2019 None Full Exam - General 1994 Respiratory respiratory effort/rhythm Overall: normal rate 01/16/2019 None Full Exam - General 1994 Cardiovascular auscultation of heart Overall: regular rate 01/16/2019 None Full Exam - General 1994 Cardiovascular auscultation of heart Overall: normal heart sounds 01/16/2019 None Full Exam - General 1994 Abdomen abdominal exam Overall: no tenderness 01/16/2019 None Full Exam - General 1994 Abdomen abdominal exam Overall: normal bowel sounds 01/16/2019 None Full Exam - General 1994 Lymphatic neck nodes Overall: anterior cervical chain benign 01/16/2019 None Full Exam - General 1995 Musculoskeletal spine, ribs and pelvis Overall: ribs benign 01/16/2019 None Full Exam - General 1994 Musculoskeletal spine, ribs and pelvis Overall: spine benign 01/16/2019 None Full Exam - General 1994 Musculoskeletal spine, ribs and pelvis Overall: sacroiliac joint benign 01/16/2019 None Full Exam - General 1994 Musculoskeletal spine, ribs and pelvis Overall: right hip benign 01/16/2019 None Full Exam - General 1994 Musculoskeletal spine, ribs and pelvis Overall: left hip benign 01/16/2019 None Full Exam - General 1994 Musculoskeletal spine, ribs and pelvis Overall: good posture 01/16/2019 None Full Exam - General 1994 Musculoskeletal head and neck Overall: head atraumatic 01/16/2019 None Full Exam - General 1994 Musculoskeletal head and neck Overall: cervical spine benign 01/16/2019 None Full Exam - General 1994 Neurologic gait Overall: no ataxia, no unsteadiness 01/16/2019 None Full Exam - General 1994 Psychiatric orientation/consciousness Overall: oriented to person, place and time 01/16/2019 None Full Exam - General 1994 Psychiatric mood and affect Overall: normal mood and affect 01/16/2019 None Full Exam - General 1994 Constitutional general appearance Overall: well developed 12/14/2018 None Full Exam - General 1994 Constitutional general appearance Overall: in no acute distress 12/14/2018 None Full Exam - General 1994 Constitutional general appearance Overall: well nourished 12/14/2018 None Full Exam - General 1994 Eyes conjunctiva/eyelids Overall: conjunctiva clear 12/14/2018 None Full Exam - General 1994 Eyes conjunctiva/eyelids Overall: cornea clear 12/14/2018 None Full Exam - General 1994 Eyes conjunctiva/eyelids Overall: eyelids normal 12/14/2018 None Full Exam - General 1994 Ears/Nose/Throat lips/teeth/gingiva Overall: benign lips 12/14/2018 None Full Exam - General 1994 Ears/Nose/Throat oral cavity/pharynx/larynx Oral mucosa: dry 12/14/2018 None Full Exam - General 1994 Respiratory auscultation Overall: breath sounds clear bilaterally 12/14/2018 None Full Exam - General 1994 Respiratory respiratory effort/rhythm Overall: no retractions 12/14/2018 None Full Exam - General 1994 Respiratory respiratory effort/rhythm Overall: normal rate 12/14/2018 None Full Exam - General 1994 Cardiovascular auscultation of heart Overall: regular rate 12/14/2018 None Full Exam - General 1994 Cardiovascular auscultation of heart Overall: normal heart sounds 12/14/2018 None Full Exam - General 1994 Musculoskeletal spine, ribs and pelvis Overall: good posture 12/14/2018 None Full Exam - General 1994 Musculoskeletal head and neck Overall: head atraumatic 12/14/2018 None Full Exam - General 1994 Neurologic gait Overall: no ataxia, no unsteadiness 12/14/2018 None Full Exam - General 1994 Psychiatric orientation/consciousness Overall: oriented to person, place and time 12/14/2018 None Full Exam - General 1994 Psychiatric mood and affect Overall: normal mood and affect 12/14/2018 None Full Exam - General 1994 Musculoskeletal head and neck Cervical Spine: tender 12/14/2018 along musculature of neck Full Exam - General 1994 Constitutional general appearance Overall: well developed 08/17/2018 None Full Exam - General 1994 Constitutional general appearance Overall: in no acute distress 08/17/2018 None Full Exam - General 1994 Constitutional general appearance Overall: well nourished 08/17/2018 None Full Exam - General 1994 Eyes conjunctiva/eyelids Overall: conjunctiva clear 08/17/2018 None Full Exam - General 1994 Eyes conjunctiva/eyelids Overall: cornea clear 08/17/2018 None Full Exam - General 1994 Eyes conjunctiva/eyelids Overall: eyelids normal 08/17/2018 None Full Exam - General 1994 Ears/Nose/Throat lips/teeth/gingiva Overall: benign lips 08/17/2018 None Full Exam - General 1994 Ears/Nose/Throat oral cavity/pharynx/larynx Oral mucosa: dry 08/17/2018 None Full Exam - General 1994 Respiratory auscultation Overall: breath sounds clear bilaterally 08/17/2018 None Full Exam - General 1994 Respiratory respiratory effort/rhythm Overall: no retractions 08/17/2018 None Full Exam - General 1994 Respiratory respiratory effort/rhythm Overall: normal rate 08/17/2018 None Full Exam - General 1994 Cardiovascular auscultation of heart Overall: regular rate 08/17/2018 None Full Exam - General 1994 Cardiovascular auscultation of heart Overall: normal heart sounds 08/17/2018 None Full Exam - General 1994 Abdomen abdominal exam Overall: no tenderness 08/17/2018 None Full Exam - General 1994 Abdomen abdominal exam Overall: normal bowel sounds 08/17/2018 None Full Exam - General 1994 Lymphatic neck nodes Overall: anterior cervical chain benign 08/17/2018 None Full Exam - General 1994 Lymphatic neck nodes Overall: posterior cervical chain benign 08/17/2018 None Full Exam - General 1994 Musculoskeletal spine, ribs and pelvis Overall: good posture 08/17/2018 None Full Exam - General 1994 Musculoskeletal head and neck Overall: head atraumatic 08/17/2018 None Full Exam - General 1994 Neurologic gait Overall: no ataxia, no unsteadiness 08/17/2018 None Full Exam - General 1994 Psychiatric orientation/consciousness Overall: oriented to person, place and time 08/17/2018 None Full Exam - General 1994 Psychiatric mood and affect Overall: normal mood and affect 08/17/2018 None Full Exam - General 1994 Constitutional general appearance Overall: well developed 05/18/2018 None Full Exam - General 1994 Constitutional general appearance Overall: in no acute distress 05/18/2018 None Full Exam - General 1994 Constitutional general appearance Overall: well nourished 05/18/2018 None Full Exam - General 1994 Eyes conjunctiva/eyelids Overall: conjunctiva clear 05/18/2018 None Full Exam - General 1994 Eyes conjunctiva/eyelids Overall: cornea clear 05/18/2018 None Full Exam - General 1994 Eyes conjunctiva/eyelids Overall: eyelids normal 05/18/2018 None Full Exam - General 1994 Ears/Nose/Throat lips/teeth/gingiva Overall: benign lips 05/18/2018 None Full Exam - General 1994 Ears/Nose/Throat oral cavity/pharynx/larynx Oral mucosa: dry 05/18/2018 None Full Exam - General 1994 Respiratory auscultation Overall: breath sounds clear bilaterally 05/18/2018 None Full Exam - General 1994 Respiratory respiratory effort/rhythm Overall: no retractions 05/18/2018 None Full Exam - General 1994 Respiratory respiratory effort/rhythm Overall: normal rate 05/18/2018 None Full Exam - General 1995 Cardiovascular auscultation of heart Overall: regular rate 05/18/2018 None Full Exam - General 1995 Cardiovascular auscultation of heart Overall: normal heart sounds 05/18/2018 None Full Exam - General 1994 Musculoskeletal spine, ribs and pelvis Overall: good posture 05/18/2018 None Full Exam - General 1995 Musculoskeletal head and neck Overall: head atraumatic 05/18/2018 None Full Exam - General 1994 Neurologic gait Overall: no ataxia, no unsteadiness 05/18/2018 None Full Exam - General 1994 Psychiatric orientation/consciousness Overall: oriented to person, place and time 05/18/2018 None Full Exam - General 1994 Psychiatric mood and affect Overall: normal mood and affect 05/18/2018 None Full Exam - General 1994 Integument inspection of skin Location: left arm 05/18/2018 ulceration on left arm fr m abrasion - in a triangular shape - 2 x 1 cm at largest section - dressed with medihoney and telfa and coban Full Exam - General 1994 Constitutional general appearance Overall: well developed 04/13/2018 None Full Exam - General 1994 Constitutional general appearance Overall: in no acute distress 04/13/2018 None Full Exam - General 1994 Constitutional general appearance Overall: well nourished 04/13/2018 None Full Exam - General 1994 Eyes conjunctiva/eyelids Overall: conjunctiva clear 04/13/2018 None Full Exam - General 1994 Eyes conjunctiva/eyelids Overall: cornea clear 04/13/2018 None Full Exam - General 1994 Eyes conjunctiva/eyelids Overall: eyelids normal 04/13/2018 None Full Exam - General 1994 Ears/Nose/Throat lips/teeth/gingiva Overall: benign lips 04/13/2018 None Full Exam - General 1994 Ears/Nose/Throat oral cavity/pharynx/larynx Overall: oral mucosa clear 04/13/2018 None Full Exam - General 1994 Ears/Nose/Throat oral cavity/pharynx/larynx Overall: oropharyngeal mucosa clear 04/13/2018 None Full Exam - General 1994 Respiratory auscultation Overall: breath sounds clear bilaterally 04/13/2018 None Full Exam - General 1994 Respiratory respiratory effort/rhythm Overall: no retractions 04/13/2018 None Full Exam - General 1994 Respiratory respiratory effort/rhythm Overall: normal rate 04/13/2018 None Full Exam - General 1994 Cardiovascular auscultation of heart Overall: regular rate 04/13/2018 None Full Exam - General 1994 Cardiovascular auscultation of heart Overall: normal heart sounds 04/13/2018 None Full Exam - General 1994 Abdomen abdominal exam Overall: no tenderness 04/13/2018 None Full Exam - General 1994 Abdomen abdominal exam Overall: normal bowel sounds 04/13/2018 None Full Exam - General 1994 Musculoskeletal spine, ribs and pelvis Overall: good posture 04/13/2018 None Full Exam - General 1994 Musculoskeletal head and neck Overall: head atraumatic 04/13/2018 None Full Exam - General 1994 Neurologic gait Overall: no ataxia, no unsteadiness 04/13/2018 None Full Exam - General 1994 Psychiatric orientation/consciousness Overall: oriented to person, place and time 04/13/2018 None Full Exam - General 1994 Psychiatric mood and affect Overall: normal mood and affect 04/13/2018 None Full Exam - General 1994 Constitutional general appearance Overall: well developed 02/08/2018 None Full Exam - General 1994 Constitutional general appearance Overall: in no acute distress 02/08/2018 None Full Exam - General 1994 Constitutional general appearance Overall: well nourished 02/08/2018 None Full Exam - General 1994 Eyes conjunctiva/eyelids Overall: conjunctiva clear 02/08/2018 None Full Exam - General 1994 Eyes conjunctiva/eyelids Overall: cornea clear 02/08/2018 None Full Exam - General 1994 Eyes conjunctiva/eyelids Overall: eyelids normal 02/08/2018 None Full Exam - General 1994 Ears/Nose/Throat lips/teeth/gingiva Overall: benign lips 02/08/2018 None Full Exam - General 1994 Ears/Nose/Throat oral cavity/pharynx/larynx Oral mucosa: dry 02/08/2018 None Full Exam - General 1994 Respiratory auscultation Overall: breath sounds clear bilaterally 02/08/2018 None Full Exam - General 1994 Respiratory respiratory effort/rhythm Overall: no retractions 02/08/2018 None Full Exam - General 1994 Respiratory respiratory effort/rhythm Overall: normal rate 02/08/2018 None Full Exam - General 1994 Cardiovascular auscultation of heart Overall: regular rate 02/08/2018 None Full Exam - General 1994 Cardiovascular auscultation of heart Overall: normal heart sounds 02/08/2018 None Full Exam - General 1994 Abdomen abdominal exam Overall: no tenderness 02/08/2018 None Full Exam - General 1994 Abdomen abdominal exam Overall: normal bowel sounds 02/08/2018 None Full Exam - General 1994 Musculoskeletal spine, ribs and pelvis Overall: good posture 02/08/2018 None Full Exam - General 1994 Musculoskeletal head and neck Overall: head atraumatic 02/08/2018 None Full Exam - General 1994 Neurologic gait Overall: no ataxia, no unsteadiness 02/08/2018 None Full Exam - General 1994 Psychiatric orientation/consciousness Overall: oriented to person, place and time 02/08/2018 None Full Exam - General 1994 Psychiatric mood and affect Overall: normal mood and affect 02/08/2018 None Full Exam - General 1994 Lymphatic neck nodes Overall: anterior cervical chain benign 02/08/2018 None Full Exam - General 1994 Lymphatic neck nodes Overall: posterior cervical chain benign 02/08/2018 None Full Exam - General 1994 Constitutional general appearance Overall: well developed 01/19/2018 None Full Exam - General 1994 Constitutional general appearance Overall: in no acute distress 01/19/2018 None Full Exam - General 1994 Constitutional general appearance Overall: well nourished 01/19/2018 None Full Exam - General 1994 Eyes conjunctiva/eyelids Overall: conjunctiva clear 01/19/2018 None Full Exam - General 1994 Eyes conjunctiva/eyelids Overall: cornea clear 01/19/2018 None Full Exam - General 1994 Eyes conjunctiva/eyelids Overall: eyelids normal 01/19/2018 None Full Exam - General 1994 Ears/Nose/Throat lips/teeth/gingiva Overall: benign lips 01/19/2018 None Full Exam - General 1994 Respiratory auscultation Overall: breath sounds clear bilaterally 01/19/2018 None Full Exam - General 1994 Respiratory respiratory effort/rhythm Overall: no retractions 01/19/2018 None Full Exam - General 1994 Respiratory respiratory effort/rhythm Overall: normal rate 01/19/2018 None Full Exam - General 1994 Cardiovascular auscultation of heart Overall: regular rate 01/19/2018 None Full Exam - General 1994 Cardiovascular auscultation of heart Overall: normal heart sounds 01/19/2018 None Full Exam - General 1994 Abdomen abdominal exam Overall: no tenderness 01/19/2018 None Full Exam - General 1994 Abdomen abdominal exam Overall: normal bowel sounds 01/19/2018 None Full Exam - General 1994 Musculoskeletal spine, ribs and pelvis Overall: good posture 01/19/2018 None Full Exam - General 1994 Musculoskeletal head and neck Overall: head atraumatic 01/19/2018 None Full Exam - General 1994 Neurologic gait Overall: no ataxia, no unsteadiness 01/19/2018 None Full Exam - General 1994 Psychiatric orientation/consciousness Overall: oriented to person, place and time 01/19/2018 None Full Exam - General 1994 Psychiatric mood and affect Overall: normal mood and affect 01/19/2018 None Full Exam - General 1994 Ears/Nose/Throat oral cavity/pharynx/larynx Oral mucosa: dry 01/19/2018 None Full Exam - General 1994 Constitutional general appearance Overall: well developed 01/12/2018 None Full Exam - General 1994 Constitutional general appearance Overall: in no acute distress 01/12/2018 None Full Exam - General 1994 Constitutional general appearance Overall: well nourished 01/12/2018 None Full Exam - General 1994 Eyes conjunctiva/eyelids Overall: conjunctiva clear 01/12/2018 None Full Exam - General 1994 Eyes conjunctiva/eyelids Overall: cornea clear 01/12/2018 None Full Exam - General 1994 Eyes conjunctiva/eyelids Overall: eyelids normal 01/12/2018 None Full Exam - General 1994 Ears/Nose/Throat lips/teeth/gingiva Overall: benign lips 01/12/2018 None Full Exam - General 1994 Respiratory auscultation Overall: breath sounds clear bilaterally 01/12/2018 None Full Exam - General 1994 Respiratory respiratory effort/rhythm Overall: no retractions 01/12/2018 None Full Exam - General 1994 Respiratory respiratory effort/rhythm Overall: normal rate 01/12/2018 None Full Exam - General 1994 Cardiovascular auscultation of heart Overall: regular rate 01/12/2018 None Full Exam - General 1994 Cardiovascular auscultation of heart Overall: normal heart sounds 01/12/2018 None Full Exam - General 1994 Abdomen abdominal exam Overall: no tenderness 01/12/2018 None Full Exam - General 1994 Abdomen abdominal exam Overall: normal bowel sounds 01/12/2018 None Full Exam - General 1994 Musculoskeletal spine, ribs and pelvis Overall: good posture 01/12/2018 None Full Exam - General 1994 Musculoskeletal head and neck Overall: head atraumatic 01/12/2018 None Full Exam - General 1994 Neurologic gait Overall: no ataxia, no unsteadiness 01/12/2018 None Full Exam - General 1994 Psychiatric orientation/consciousness Overall: oriented to person, place and time 01/12/2018 None Full Exam - General 1994 Psychiatric mood and affect Overall: normal mood and affect 01/12/2018 None Full Exam - General 1994 Ears/Nose/Throat oral cavity/pharynx/larynx Oral mucosa: dry 01/12/2018 None Full Exam - General 1994 Constitutional general appearance Overall: well developed 01/05/2018 None Full Exam - General 1994 Constitutional general appearance Overall: in no acute distress 01/05/2018 None Full Exam - General 1994 Constitutional general appearance Overall: well nourished 01/05/2018 None Full Exam - General 1994 Eyes conjunctiva/eyelids Overall: conjunctiva clear 01/05/2018 None Full Exam - General 1994 Eyes conjunctiva/eyelids Overall: cornea clear 01/05/2018 None Full Exam - General 1994 Eyes conjunctiva/eyelids Overall: eyelids normal 01/05/2018 None Full Exam - General 1994 Ears/Nose/Throat lips/teeth/gingiva Overall: benign lips 01/05/2018 None Full Exam - General 1994 Ears/Nose/Throat oral cavity/pharynx/larynx Overall: oral mucosa clear 01/05/2018 None Full Exam - General 1994 Ears/Nose/Throat oral cavity/pharynx/larynx Overall: oropharyngeal mucosa clear 01/05/2018 None Full Exam - General 1994 Respiratory auscultation Overall: breath sounds clear bilaterally 01/05/2018 None Full Exam - General 1994 Respiratory respiratory effort/rhythm Overall: no retractions 01/05/2018 None Full Exam - General 1994 Respiratory respiratory effort/rhythm Overall: normal rate 01/05/2018 None Full Exam - General 1994 Cardiovascular auscultation of heart Overall: regular rate 01/05/2018 None Full Exam - General 1994 Cardiovascular auscultation of heart Overall: normal heart sounds 01/05/2018 None Full Exam - General 1994 Abdomen abdominal exam Overall: no tenderness 01/05/2018 None Full Exam - General 1994 Abdomen abdominal exam Overall: normal bowel sounds 01/05/2018 None Full Exam - General 1994 Musculoskeletal spine, ribs and pelvis Overall: good posture 01/05/2018 None Full Exam - General 1994 Musculoskeletal head and neck Overall: head atraumatic 01/05/2018 None Full Exam - General 1994 Neurologic gait Overall: no ataxia, no unsteadiness 01/05/2018 None Full Exam - General 1994 Psychiatric orientation/consciousness Overall: oriented to person, place and time 01/05/2018 None Full Exam - General 1994 Psychiatric mood and affect Overall: normal mood and affect 01/05/2018 None Full Exam - General 1994 Constitutional general appearance Overall: well developed 11/14/2017 None Full Exam - General 1994 Constitutional general appearance Overall: in no acute distress 11/14/2017 None Full Exam - General 1994 Constitutional general appearance Overall: well nourished 11/14/2017 None Full Exam - General 1994 Eyes conjunctiva/eyelids Overall: conjunctiva clear 11/14/2017 None Full Exam - General 1994 Eyes conjunctiva/eyelids Overall: cornea clear 11/14/2017 None Full Exam - General 1994 Eyes conjunctiva/eyelids Overall: eyelids normal 11/14/2017 None Full Exam - General 1994 Ears/Nose/Throat lips/teeth/gingiva Overall: benign lips 11/14/2017 None Full Exam - General 1995 Ears/Nose/Throat oral cavity/pharynx/larynx Overall: oral mucosa clear 11/14/2017 None Full Exam - General 1994 Ears/Nose/Throat [...] None Full Exam - General 1994 Eyes conjunctiva/eyelids Overall: conjunctiva clear 2017 None Full Exam - General 1994 Eyes conjunctiva/eyelids Overall: cornea clear 2017 None Full Exam - General 1994 Eyes conjunctiva/eyelids Overall: eyelids normal 2017 None Full Exam [...] None Full Exam - General 1994 Eyes conjunctiva/eyelids Overall: conjunctiva clear 10/13/2017 None Full Exam - General 1994 Eyes conjunctiva/eyelids Overall: cornea clear 10/13/2017 None Full Exam - General 1994 Eyes conjunctiva/eyelids Overall: eyelids normal 10/13/2017 None Full Exam [...] None Full Exam - General 1994 Eyes conjunctiva/eyelids Overall: conjunctiva clear 09/26/2017 None Full Exam - General 1994 Eyes conjunctiva/eyelids Overall: cornea clear 09/26/2017 None Full Exam - General 1994 Eyes conjunctiva/eyelids Overall: eyelids normal 09/26/2017 None Full Exam [...] None Full Exam - General 1994 Eyes conjunctiva/eyelids Overall: conjunctiva clear 09/12/2017 None Full Exam - General 1994 Eyes conjunctiva/eyelids Overall: cornea clear 09/12/2017 None Full Exam - General 1994 Eyes conjunctiva/eyelids Overall: eyelids normal 09/12/2017 None Full Exam - General 1995 Ears/Nose/Throat lips/teeth/gingiva Overall: benign lips 09/12/2017 None [...] None Full Exam - General 1994 Eyes conjunctiva/eyelids Overall: conjunctiva clear 09/09/2017 None Full Exam - General 1994 Eyes conjunctiva/eyelids Overall: cornea clear 09/09/2017 None Full Exam - General 1994 Eyes conjunctiva/eyelids Overall: eyelids normal 09/09/2017 None Full Exam [...] None Full Exam - General 1994 Eyes conjunctiva/eyelids Overall: conjunctiva clear 08/17/2017 None Full Exam - General 1994 Eyes conjunctiva/eyelids Overall: cornea clear 08/17/2017 None Full Exam - General 1994 Eyes conjunctiva/eyelids Overall: eyelids normal 08/17/2017 None Full Exam [...] None Full Exam - General 1994 Eyes conjunctiva/eyelids Overall: conjunctiva clear 07/20/2017 None Full Exam - General 1994 Eyes conjunctiva/eyelids Overall: cornea clear 07/20/2017 None Full Exam - General 1994 Eyes conjunctiva/eyelids Overall: eyelids normal 07/20/2017 None Full Exam [...] None Full Exam - General 1994 Eyes conjunctiva/eyelids Overall: conjunctiva clear 07/01/2017 None Full Exam - General 1994 Eyes conjunctiva/eyelids Overall: cornea clear 07/01/2017 None Full Exam - General 1994 Eyes conjunctiva/eyelids Overall: eyelids normal 07/01/2017 None Full Exam [...] Neurologic orientation Overall: oriented to person, place a nd time 03/08/2017 None Full Exam - ENT [...] ENT Respiratory auscultation Overall: breath sounds clear bilater ally 03/08/2017 None Full Exam - ENT Respiratory inspection Overall: normal rate None Full Exam - ENT Respiratory inspection Overall: no retractions 03/08/2017 None Full Exam - ENT Face and Head palpation Overall: no sinus tenderness 03/08/2017 None Full Exam - ENT Ears/Nose/Throat otoscopic exam Left external auditory canal: minima l cerumen 03/08/2017 None Full Exam - ENT Ears/Nose/Throat otoscopic exam Left tympanic membrane: air-fluid le rené 03/08/2017 None Full Exam - ENT Ears/Nose/Throat [...] None Full Exam - Orthopedics MS: right up per extremity insp & palp - RUE Elbow: olecranon swelling 02/17/2016 prepped and draped and 19cc serosangious drainage removed with #22 g needle and syringe. Covered with bandiad and gauze dressing and ALEXEY wrap for compression. Patient tolerated well. Full Exam - Orthopedics MS: right up per extremity range of motion - RUE Elbow: full range of motion 02/17/2016 None Full Exam - Orthopedics MS: right up per extremity stability - RUE Overall: shoulder, elbow, wrist stable 02/17/2016 None Full Exam - Orthopedics MS: right up per extremity strength & tone - RUE Elbow [...] None Full Exam - Orthopedics MS: right up per extremity insp & palp - RUE Elbow: olecranon swelling 02/09/2016 prepped and draped and 19cc serosangious drainage removed with #22 g needle and syringe. Covered with bandiad and gauze dressing and ALEXEY wrap for compression. Patient tolerated well. Full Exam - Orthopedics MS: right up per extremity range of motion - RUE Elbow: full range of motion 02/09/2016 None Full Exam - Orthopedics MS: right up per extremity stability - RUE Overall: shoulder, elbow, wrist stable 02/09/2016 None Full Exam - Orthopedics MS: right up per extremity strength & tone - RUE Elbow [...] None Full Exam - Orthopedics MS: right up per extremity insp & palp - RUE Elbow: olecranon swelling 02/03/2016 prepped and draped and 22cc serosangious drainage removed with #22 g needle and syringe. Covered with bandiad and gauze dressing. Patient tolerated well. Full Exam - Orthopedics MS: right up per extremity range of motion - RUE Elbow: full range of motion 02/03/2016 None Full Exam - Orthopedics MS: right up per extremity stability - RUE Overall: shoulder, elbow, wrist stable 02/03/2016 None Full Exam - Orthopedics MS: right up per extremity strength & tone - RUE Elbow [...] clear 04/04/2013 None Full Exam - General 1995 Ears/Nose/Throat otoscopic exam Overall: tympanic membranes clear 04/04/2013 None Full Exam - General 1994 Ears/Nose/Throat oral cavity/pharynx/larynx Overall: oral mucosa clear 04/04/2013 None Full Exam - General 1995 Ears/Nose/Throat [...] sounds 10/16/2012 None Full Exam - General 1995 [...] inguinal area 12/09/2011 right groin with hard pal pable lump in the groin - mildly tender [...] General Respiratory auscultation Overall: breath sounds clear bilater ally 04/19/2011 None Full Exam - General Respiratory [...] pupils and irises Overall: pupils equal, round, reacti ve to light and accomodation 04/19/2011 None Full Exam - General Ears/Nose/Throat otoscopic exam Overall: external auditory canals clear 04/19/2011 None Full Exam - General Ears/Nose/Throat otoscopic exam Overall: tympanic membranes clear 04/19/2011 None Full Exam - General Psychiatric appearance Overall: well-groomed, good eye cont act 04/19/2011 None Full Exam - General Psychiatric [...] right hand 03/08/2011 index finger - suture rem abhinav and the lesion was dressed with neosporin [...] Location: right hand 03/01/2011 index finger with lacerat ion and one suture, suture removed and the lesion was dressed with neosporin and bandaid. Full Exam - General Neurologic mental status Overall: alert 1 memory test performed today - [facility] exam [...] General Respiratory auscultation Overall: breath sounds clear bilater ally 02/01/2011 None Full Exam - General Respiratory [...] General Psychiatric appearance Overall: well-groomed, good eye cont act 02/01/2011 None Full Exam - General Psychiatric speech Overall: normal quality, no aphasia 02/01/2011 None Full Exam - General Eyes pupils and irises Overall: pupils equal, round, reacti ve to light and accomodation 02/01/2011 None Full Exam - General Ears/Nose/Throat otoscopic exam Overall: external auditory canals clear 02/01/2011 None Full Exam - Genitourinary/Male Const itutional general appearance Overall: well nourished 01/27/2011 None Full Exam - Genitourinary/Male Const itutional general appearance Overall: well developed 01/27/2011 None Full Exam - Genitourinary/Male Const itutional general appearance Overall: in no acute distress 01/27/2011 None Full Exam - Genitourinary/Male Eyes conjunctiva/eyelids Overall: conjunctiva clear 01/27/2011 None Full Exam - Genitourinary/Male Eyes pupils and irises Overall: pupils equal, round, reactive to light and accomodation 01/27/2011 None Full Exam - Genitourinary/Male Ears/ Nose/Throat otoscopic exam Overall: external auditory canals clear 01/27/2011 None Full Exam - Genitourinary/Male Ears/ Nose/Throat otoscopic exam Overall: tympanic membranes clear 01/27/2011 None Full Exam - Genitourinary/Male Neck inspection of neck Overall: normal size 01/27/2011 None Full Exam - Genitourinary/Male Neck inspection of neck Overall: normal appearance 01/27/2011 None Full Exam - Genitourinary/Male Respiratory auscultation Overall: breath sounds clear bilaterally 01/27/2011 None Full Exam - Genitourinary/Male Respiratory respiratory effort/rhythm Overall: normal rate 01/27/2011 None Full Exam - Genitourinary/Male Cardi ovascular auscultation of heart Overall: regular rate 01/27/2011 None Full Exam - Genitourinary/Male Cardi ovascular auscultation of heart Overall: normal heart sounds 01/27/2011 None Full Exam - Genitourinary/Male Genit ourinary epididymides Overall: sy mmetrical 01/27/2011 None Full Exam - Genitourinary/Male Genit ourinary epididymides Overall: no rmal size, consistency 01/27/2011 None Full Exam - Genitourinary/Male Genit ourinary epididymides Overall: no n tender 01/27/2011 None Full Exam - Genitourinary/Male Genit ourinary scrotum Overall: no lesi ons or cyst present 01/27/2011 None Full Exam - Genitourinary/Male Genit ourinary scrotum Overall: no rash present 01/27/2011 None Full Exam - Genitourinary/Male Genit ourinary testes Overall: bilatera l descended testes 01/27/2011 None Full Exam - Genitourinary/Male Genit ourinary testes Overall: no masses 01/27/2011 None Full Exam - Genitourinary/Male Genit ourinary testes Overall: non-tend er 01/27/2011 None Full Exam - Genitourinary/Male Lymphatic [...] left arm 01/26/2011 with bruising noted to le ft AC space and left wrist. Area soft. [...] None Full Exam - General 1994 Eyes conjunctiva/eyelids Overall: conjunctiva clear 01/15/2011 None Full Exam - General 1994 Eyes conjunctiva/eyelids Overall: eyelids normal 01/15/2011 None Full Exam [...] rate 01/15/2011 None Full Exam - General 1995 Cardiovascular auscultation of heart Overall: regular rate 01/15/2011 None Full Exam - General 1994 Cardiovascular auscultation of heart Overall: normal heart sounds 01/15/2011 None Full Exam - General 1994 Cardiovascular auscultation of heart Overall: no murmurs 01/15/2011 None Full Exam - General 1994 Chest/Breast breast/chest inspection Overall: normal chest shape 01/15/2011 None Full Exam - General 1995 Abdomen abdominal exam Overall: no tenderness 01/15/2011 None Full Exam - General 1995 Abdomen abdominal exam Overall: normal bowel sounds 01/15/2011 None Full Exam - General 1995 Abdomen liver and spleen exam Overall: no [...] 1994 Neurologic cranial nerves Overall: cranial nerves 1-12 intact 01/15/2011 None Full Exam - General [...] None Full Exam - General 1994 Eyes conjunctiva/eyelids Overall: conjunctiva clear 01/06/2011 None Full Exam - General 1994 Eyes conjunctiva/eyelids Overall: eyelids normal 01/06/2011 None Full Exam [...] 1994 Neurologic cranial nerves Overall: cranial nerves 1-12 intact 01/06/2011 None Full Exam - General 1994 Psychiatric orientation/consciousness Overall: oriented to person, place and time 01/06/2011 None Full Exam - General 1994 Psychiatric mood and affect Overall: normal mood and affect 01/06/2011 None Procedures Procedure Codes Date ADMIN INFLUENZA VIRU S VAC CPT-4: G0008 01/23/2019 IIV NO PRSV INCREASE D AG IM CPT-4: 45520 01/23/2019 PPPS, SUBSEQ VISIT CPT- 4: G0439 01/16/2019 ADMIN INFLUENZA VIRU S VAC CPT-4: G0008 02/08/2018 IIV NO PRSV INCREASE D AG IM CPT-4: 77060 02/08/2018 URINALYSIS NONAUTO W /O SCOPE CPT-4: 60276 09/26/2017 ADMIN INFLUENZA VIRU S VAC CPT-4: G0008 01/25/2017 IIV NO PRSV INCREASE D AG IM CPT-4: 00238 01/25/2017 THER/PROPH/DIAG INJ SC/IM CPT-4: 67824 11/25/2016 TRIAMCINOLONE ACET I [place] NOS CPT-4: J3301 11/25/2016 DRAIN/INJECT JOINT/B URSA CPT-4: 94087 02/17/2016 IMMUNIZATION ADMIN CPT- 4: 35318 05/06/2015 PNEUMOCOCCAL VACC 13 TIFFANIE IM Formatting Model/CDA Sections, Assigned to/Celia Minaya SNOMED CT: [id number] CPT-4: 08580Jzxmzda 05/06/2015 ADMIN INFLUENZA VIRU S VAC CPT-4: G0008 02/19/2015 FLU VACC 4 TIFFANIE 3 YRS PLUS IM Formatting Model/CDA Sections, Assigned to SNOMED CT: [id number] CPT-4: 13700Kndrtfi 02/19/2015 URINALYSIS NONAUTO W /O SCOPE CPT-4: 86384 05/23/2014 ADMIN INFLUENZA VIRU S VAC CPT-4: G0008 03/26/2014 FLU VAC NO PRSV 4 VA L 3 YRS+ Assigned to/Celia Minaya CPT-4: 09112Mhpejhp 03/26/2014 PRESCRIP TRANSMIT A ERX SY CPT-4: G8553 04/04/2013 ROUTINE VENIPUNCTURE CPT-4: 72346 02/19/2013 ADMIN INFLUENZA VIRU S VAC CPT-4: G0008 02/06/2013 FLULAVAL VACC, 3 YRS & >, IM CPT-4: Q2036 02/06/2013 65001 EST. PATIENT, LEVEL IV CPT-4: 21662 06/19/2012 PRESCRIP TRANSMIT A ERX SY CPT-4: G8553 06/19/2012 PRESCRIP TRANSMIT A ERX SY CPT-4: G8553 03/20/2012 PRESCRIP TRANSMIT A ERX SY CPT-4: G8553 06/23/2011 IMMUNIZATION ADMIN CPT- 4: 60777 02/25/2011 ZOSTER VACC SC (No lloyd stephens, patient supplied vaccine) CPT-4: 00894BE 02/25/2011 ADMIN PNEUMOCOCCAL V ACCINE SNOMED CT: [id number] CPT-4: G0009 02/16/2011 Pneumococcal Polysac charide Vaccine, 23-Valent, Ad CPT-4: 58740 02/16/2011 ADMIN INFLUENZA VIRU S VAC CPT-4: G0008 02/09/2011 FLULAVAL VACC, 3 YRS & >, IM CPT-4: Q2036 02/09/2011 PRESCRIP TRANSMIT A ERX SY CPT-4: G8553 02/01/2011 URINALYSIS NONAUTO W /O SCOPE CPT-4: 20480 01/27/2011 Vital Signs Date Vital 01/16/2019 Blood Pressure 1: 146/80 Code: 8480-6 BMI: 19.9 Code: 36160-5 Heart Rate 1: 81 bpm Height: 5'9" SpO2: 98% Waist Measure (cm): 86 cm Weight: 135 lbs 12/14/2018 Blood Pressure 1: 142/82 Code: 8480-6 BMI: 20.2 Code: 42516-9 Heart Rate 1: 68 bpm Height: 5'9" SpO2: 92% Weight: 137 lbs 08/17/2018 Blood Pressure 1: 138/68 Code: 8480-6 BMI: 20.4 Code: 10137-8 Heart Rate 1: 76 bpm Height: 5'9" Weight: 138 lbs 05/18/2018 Blood Pressure 1: 142/64 Code: 8480-6 BMI: 19.9 Code: 35045-7 Heart Rate 1: 52 bpm Height: 5'9" SpO2: 98% Weight: 135 lbs 04/13/2018 Blood Pressure 1: 128/58 Code: 8480-6 BMI: 21.0 Code: 85713-3 Heart Rate 1: 83 bpm Height: 5'9" SpO2: 94% Weight: 142 lbs 02/08/2018 Blood Pressure 1: 136/76 Code: 8480-6 BMI: 19.9 Code: 70646-6 Heart Rate 1: 78 bpm Height: 5'9" SpO2: 99% Weight: 135 lbs 01/19/2018 Blood Pressure 1: 114/78 Code: 8480-6 BMI: 19.9 Code: 57932-0 Heart Rate 1: 80 bpm Height: 5'9" SpO2: 98% Weight: 135 lbs 01/12/2018 Blood Pressure 1: 130/78 Code: 8480-6 BMI: 19.8 Code: 38117-1 Heart Rate 1: 85 bpm Height: 5'9" SpO2: 97% Weight: 134 lbs 01/05/2018 Blood Pressure 1: 122/70 Code: 8480-6 BMI: 19.6 Code: 58771-8 Heart Rate 1: 87 bpm Height: 5'9" SpO2: 96% Weight: 133 lbs 11/14/2017 Blood Pressure 1: 130/70 Code: 8480-6 BMI: 19.5 Code: 51178-7 Heart Rate 1: 75 bpm Height: 5'9" SpO2: 98% Weight: 132 lbs 2017 Blood Pressure 1: 116/70 Code: 8480-6 BMI: 19.5 Code: 94343-0 Heart Rate 1: 55 bpm Height: 5'9" SpO2: 95% Weight: 132 lbs 10/13/2017 Blood Pressure 1: 130/70 Code: 8480-6 BMI: 19.3 Code: 42939-4 Heart Rate 1: 67 bpm Height: 5'9" SpO2: 98% Weight: 131 lbs 09/26/2017 Blood Pressure 1: 126/70 Code: 8480-6 BMI: 19.1 Code: 12459-6 Heart Rate 1: 66 bpm Height: 5'9" SpO2: 100% Weight: 129 lbs 8 oz 09/12/2017 Blood Pressure 1: 120/70 Code: 8480-6 BMI: 19.5 Code: 84906-9 Heart Rate 1: 83 bpm Height: 5'9" SpO2: 99% Weight: 132 lbs 09/09/2017 Blood Pressure 1: 126/70 Code: 8480-6 BMI: 19.3 Code: 32734-7 Heart Rate 1: 80 bpm Height: 5'9" SpO2: 98% Weight: 131 lbs 08/17/2017 Blood Pressure 1: 130/74 Code: 8480-6 BMI: 19.6 Code: 50189-2 Heart Rate 1: 72 bpm Height: 5'9" SpO2: 98% Weight: 133 lbs 07/20/2017 Blood Pressure 1: 124/62 Code: 8480-6 BMI: 19.8 Code: 91128-1 Heart Rate 1: 65 bpm Height: 5'9" SpO2: 96% Weight: 134 lbs 07/01/2017 Blood Pressure 1: 134/64 Code: 8480-6 BMI: 21.0 Code: 02863-7 Height: 5'9" Weight: 142 lbs 06/21/2017 Blood Pressure 1: 142/80 Code: 8480-6 BMI: 21.0 Code: 17561-7 Heart Rate 1: 63 bpm Height: 5'9" SpO2: 98% Weight: 142 lbs 03/21/2017 Blood Pressure 1: 128/66 Code: 8480-6 BMI: 20.8 Code: 94676-2 Heart Rate 1: 61 bpm Height: 5'9" SpO2: 98% Weight: 141 lbs 03/08/2017 Blood Pressure 1: 134/68 Code: 8480-6 BMI: 20.4 Code: 22061-6 Heart Rate 1: 56 bpm Height: 5'9" SpO2: 99% Weight: 138 lbs 01/25/2017 Blood Pressure 1: 98/62 Code: 8480-6 BMI: 20.6 Code: 03496-9 Heart Rate 1: 71 bpm Height: 5'9" SpO2: 97% Weight: 139 lbs 8 oz 12/20/2016 Blood Pressure 1: 120/68 Code: 8480-6 BMI: 20.4 Code: 09896-0 Heart Rate 1: 70 bpm Height: 5'9" SpO2: 98% Weight: 138 lbs 12/01/2016 Blood Pressure 1: 100/60 Code: 8480-6 Heart Rate 1: 86 bpm Height: SpO2: 96% Temperature: 37.2 (C ) / 98.9 (F) Weight: 11/25/2016 Blood Pressure 1: 112/60 Code: 8480-6 Heart Rate 1: 86 bpm Height: SpO2: 97% Temperature: 37.2 (C ) / 98.9 (F) Weight: 11/18/2016 Blood Pressure 1: 120/60 Code: 8480-6 BMI: 20.7 Code: 86322-0 Heart Rate 1: 74 bpm Height: 5'9" SpO2: 95% Weight: 140 lbs 08/23/2016 Blood Pressure 1: 118/68 Code: 8480-6 BMI: 20.8 Code: 57692-5 Heart Rate 1: 54 bpm Height: 5'9" SpO2: 97% Weight: 141 lbs 04/26/2016 Blood Pressure 1: 108/64 Code: 8480-6 BMI: 21.0 Code: 58910-7 Heart Rate 1: 62 bpm Height: 5'9" SpO2: 95% Weight: 142 lbs 02/17/2016 Blood Pressure 1: 138/80 Code: 8480-6 BMI: 20.2 Code: 92113-2 Heart Rate 1: 76 bpm Height: 5'9" SpO2: 97% Weight: 137 lbs 02/09/2016 Blood Pressure 1: 140/76 Code: 8480-6 BMI: 20.2 Code: 31100-6 Heart Rate 1: 72 bpm Height: 5'9" SpO2: 96% Weight: 137 lbs 02/03/2016 Blood Pressure 1: 136/80 Code: 8480-6 BMI: 20.7 Code: 55056-1 Heart Rate 1: 86 bpm Height: 5'9" SpO2: 96% Weight: 140 lbs 01/26/2016 Blood Pressure 1: 144/78 Code: 8480-6 BMI: 20.7 Code: 16336-6 Heart Rate 1: 73 bpm Height: 5'9" SpO2: 97% Temperature: 37.0 (C ) / 98.6 (F) Weight: 140 lbs 01/21/2016 Blood Pressure 1: 116/62 Code: 8480-6 BMI: 20.4 Code: 48437-0 Heart Rate 1: 66 bpm Height: 5'9" SpO2: 97% Weight: 138 lbs 12/29/2015 Blood Pressure 1: 130/74 Code: 8480-6 BMI: 20.4 Code: 69047-3 Heart Rate 1: 51 bpm Height: 5'9" SpO2: 98% Weight: 138 lbs 09/02/2015 Blood Pressure 1: 126/60 Code: 8480-6 BMI: 22.3 Code: 89201-7 Heart Rate 1: 55 bpm Height: 5'9" SpO2: 96% Weight: 151 lbs 05/06/2015 Blood Pressure 1: 132/72 Code: 8480-6 BMI: 21.0 Code: 47989-8 Heart Rate 1: 63 bpm Height: 5'9" SpO2: 97% Weight: 142 lbs 03/05/2015 Blood Pressure 1: 130/68 Code: 8480-6 BMI: 21.0 Code: 82157-8 Heart Rate 1: 61 bpm Height: 5'9" SpO2: 96% Weight: 142 lbs 12/04/2014 Blood Pressure 1: 122/64 Code: 8480-6 BMI: 21.3 Code: 61980-3 Heart Rate 1: 72 bpm Height: 5'9" Weight: 144 lbs 09/24/2014 Blood Pressure 1: 142/80 Code: 8480-6 BMI: 20.4 Code: 67399-3 Heart Rate 1: 80 bpm Height: 5'9" Weight: 138 lbs 09/09/2014 Blood Pressure 1: 122/74 Code: 8480-6 BMI: 20.5 Code: 53803-4 Heart Rate 1: 64 bpm Height: 5'9" Weight: 139 lbs 07/26/2014 Blood Pressure 1: 136/82 Code: 8480-6 BMI: 20.4 Code: 33173-6 Heart Rate 1: 87 bpm Height: 5'9" SpO2: 92% Weight: 138 lbs 07/10/2014 Blood Pressure 1: 130/74 Code: 8480-6 BMI: 21.1 Code: 11187-1 Heart Rate 1: 64 bpm Height: 5'9" Weight: 143 lbs 06/06/2014 Blood Pressure 1: 142/88 Code: 8480-6 BMI: 20.4 Code: 82730-1 Heart Rate 1: 68 bpm Height: 5'9" Weight: 138 lbs 05/29/2014 Blood Pressure 1: 108/72 Code: 8480-6 BMI: 20.5 Code: 46864-5 Heart Rate 1: 60 bpm Height: 5'9" Weight: 139 lbs 05/20/2014 Blood Pressure 1: 140/72 Code: 8480-6 BMI: 21.6 Code: 37904-4 Heart Rate 1: 60 bpm Height: 5'9" SpO2: 98% Temperature: 36.2 (C ) / 97.2 (F) Weight: 146 lbs 03/25/2014 Blood Pressure 1: 128/60 Code: 8480-6 BMI: 21.4 Code: 14697-3 Heart Rate 1: 62 bpm Height: 5'9" Weight: 145 lbs 02/08/2014 Blood Pressure 1: 136/82 Code: 8480-6 BMI: 21.3 Code: 57718-1 Heart Rate 1: 68 bpm Height: 5'9" Weight: 144 lbs 12/24/2013 Blood Pressure 1: 122/76 Code: 8480-6 BMI: 21.6 Code: 38031-2 Heart Rate 1: 58 bpm Height: 5'9" Weight: 146 lbs 11/20/2013 Blood Pressure 1: 112/62 Code: 8480-6 BMI: 20.7 Code: 05467-4 Heart Rate 1: 56 bpm Height: 5'9" Weight: 140 lbs 10/30/2013 Blood Pressure 1: 130/68 Code: 8480-6 BMI: 20.1 Code: 62183-2 Heart Rate 1: 68 bpm Height: 5'9" SpO2: 96% Weight: 136 lbs 10/08/2013 Blood Pressure 1: 128/72 Code: 8480-6 BMI: 20.8 Code: 46440-0 Heart Rate 1: 60 bpm Height: 5'9" Temperature: 36.6 (C ) / 97.8 (F) Weight: 141 lbs 06/18/2013 Blood Pressure 1: 124/78 Code: 8480-6 BMI: 20.8 Code: 17313-4 Heart Rate 1: 64 bpm Height: 5'9" Weight: 141 lbs 04/04/2013 Blood Pressure 1: 138/60 Code: 8480-6 BMI: 20.8 Code: 64577-8 Heart Rate 1: 56 bpm Height: 5'9" Weight: 141 lbs 02/19/2013 Blood Pressure 1: 152/74 Code: 8480-6 BMI: 21.0 Code: 79632-0 Heart Rate 1: 60 bpm Height: 5'9" Weight: 142 lbs 10/16/2012 Blood Pressure 1: 122/70 Code: 8480-6 BMI: 20.8 Code: 76596-3 Heart Rate 1: 64 bpm Height: 5'9" Weight: 141 lbs 06/19/2012 Blood Pressure 1: 120/72 Code: 8480-6 BMI: 21.1 Code: 15473-7 Heart Rate 1: 60 bpm Height: 5'9" Weight: 143 lbs 03/20/2012 Blood Pressure 1: 114/76 Code: 8480-6 Heart Rate 1: 60 bpm Respiratory Rate: 16 bpm Weight: 143 lbs 01/24/2012 Blood Pressure 1: 134/70 Code: 8480-6 Heart Rate 1: 64 bpm Weight: 143 lbs 12/20/2011 Blood Pressure 1: 98/72 Code: 8480-6 BMI: 21.1 Code: 28448-3 Heart Rate 1: 60 bpm Height: 5'9" Respiratory Rate: 16 bpm Weight: 143 lbs 12/09/2011 Blood Pressure 1: 110/60 Code: 8480-6 Heart Rate 1: 66 bpm SpO2: 98% Weight: 141 lbs 08/25/2011 Blood Pressure 1: 112/70 Code: 8480-6 BMI: 20.8 Code: 41550-9 Heart Rate 1: 54 bpm Height: 5'9" Respiratory Rate: 16 bpm Weight: 141 lbs 06/23/2011 Blood Pressure 1: 126/64 Code: 8480-6 Heart Rate 1: 60 bpm Respiratory Rate: 16 bpm Weight: 142 lbs 04/19/2011 Blood Pressure 1: 124/64 Code: 8480-6 BMI: 21.1 Code: 17291-3 Heart Rate 1: 64 bpm Height: 5'9" Respiratory Rate: 16 bpm Weight: 143 lbs 03/23/2011 Blood Pressure 1: 137/71 Code: 8480-6 Heart Rate 1: 57 bpm 03/08/2011 Blood Pressure 1: 154/70 Code: 8480-6 BMI: 20.8 Code: 31040-7 Heart Rate 1: 60 bpm Height: 5'9" Respiratory Rate: 16 bpm Weight: 141 lbs 03/01/2011 Blood Pressure 1: 178/80 Code: 8480-6 Blood Pressure 2: 168/70 Code: 8480-6 BMI: 24.1 Code: 39542-8 Heart Rate 1: 60 bpm Height: 5'9" Respiratory Rate: 16 bpm Weight: 163 lbs 02/01/2011 Blood Pressure 1: 162/84 Code: 8480-6 Heart Rate 1: 60 bpm Respiratory Rate: 16 bpm Weight: 144 lbs 01/27/2011 Blood Pressure 1: 138/54 Code: 8480-6 BMI: 21.1 Code: 68885-0 Heart Rate 1: 68 bpm Height: 5'9" Respiratory Rate: 16 bpm Weight: 143 lbs 01/26/2011 Blood Pressure 1: 148/86 Code: 8480-6 BMI: 21.3 Code: 77069-0 Heart Rate 1: 74 bpm Height: 5'9" Weight: 144 lbs 01/15/2011 Blood Pressure 1: 136/76 Code: 8480-6 BMI: 20.5 Code: 03551-6 Heart Rate 1: 70 bpm Height: 5'10" Weight: 141 lbs 01/06/2011 Blood Pressure 1: 148/72 Code: 8480-6 BMI: 20.2 Code: 82442-2 Heart Rate 1: 72 bpm Height: 5'10" Respiratory Rate: 12 bpm Weight: 139 lbs Functional Status No Functional Status data History of Present Illness Symptom Name Status Resu lt Effective Date Notes Describe Your Health g ood 01/16/2019 None Alcohol Use does not d rink any alcohol 01/16/2019 None Alcohol Use quit in 200401/16/2019 None Aspirin Use yes 01/16/2019 None Blood Glucose (self reported) desireable (below 100) 01/16/2019 None Blood Pressure (self reported) borderline (120/80 - 139/89) 01/16/2019 None Cholesterol (self reported) desireable (below 200) 01/16/2019 None Hemaglobin A-1C (self reported) don't know 01/16/2019 None Hemaglobin A-1C (self reported) never checked 01/16/2019 None Depression (last 6 months) some of the time 01/16/2019 None Depression or Hopelessness some of the time 01/16/2019 None Exercise Habits exerci ses 7 days per week 01/16/2019 "always doing something" Handling Stress usuall y mima effectively 01/16/2019 None Hours of Sleep 8-9 01/16/2019 None Interaction with Friends no 01/16/2019 None Interests & Pleasure s ome of the time 01/16/2019 None Life Satisfaction sati sfied 01/16/2019 None Motor Vehicle Safety a lways fastens seat belt: yes 01/16/2019 None Motor Vehicle Safety d tiago after drinking: no 01/16/2019 None Motor Vehicle Safety r ides with someone who has been drinking: no 01/16/2019 None Smoking and Tobacco Use non smoker 01/16/2019 None Social & Emotional Support usually 01/16/2019 None Stress some of the time 01/16/2019 None Sun Exposure protects skin when outdoors: yes- tries to 01/16/2019 None Nutrition servings of fried food / high fat foods per day: <1 01/16/2019 once a week Nutrition servings of high fiber / whole grain per day: 2 01/16/2019 None Nutrition servings of vegetables / fruit per day: 2 01/16/2019 None Location thoracic spine 12/14/2018 None Location Cervical spine 12/14/2018 he states that he feels the pain in any position he holds his neck - Pertinent Findings Den ies extremity numbness 12/14/2018 None Pertinent Findings Den ies extremity weakness 12/14/2018 None Quality intermittent 12/14/2018 None Onset and Resolution o ngoing 12/14/2018 None Onset of Symptom Denie s _ months ago 12/14/2018 more pronounced since las t visit Mechanism of injury un known 12/14/2018 None Quality chronic 08/17/2018 None Quality primary hypert ension 08/17/2018 None Onset and Resolution o ngoing 08/17/2018 None Onset of Symptom durin g adulthood 08/17/2018 None Alleviating Factors me dication 08/17/2018 None Pertinent Findings Den ies dizziness 08/17/2018 None Pertinent Findings Den ies dyspnea 08/17/2018 None Quality improving 05/18/2018 None Onset of Symptom phuong hs ago 05/18/2018 None Frequency of Episodes decreasing 05/18/2018 None Triggers no known asso ciated factors 05/18/2018 None Pertinent Findings Den ies nausea 05/18/2018 None Quality chronic 05/18/2018 None Quality primary hypert ension 05/18/2018 None Onset and Resolution o ngoing 05/18/2018 None Onset of Symptom durin g adulthood 05/18/2018 None Alleviating Factors me dication 05/18/2018 None Quality improving 05/18/2018 None Frequency of Episodes decreasing 05/18/2018 None Alleviating Factors me dication 05/18/2018 None Location diffusely 05/18/2018 None Onset and Resolution o ngoing 05/18/2018 None Quality improving 04/13/2018 None Onset of Symptom phuong hs ago 04/13/2018 None Frequency of Episodes decreasing 04/13/2018 None Triggers no known asso ciated factors 04/13/2018 None Pertinent Findings Den ies nausea 04/13/2018 None Quality chronic 04/13/2018 None Quality primary hypert ension 04/13/2018 None Onset and Resolution o ngoing 04/13/2018 None Onset of Symptom durin g adulthood 04/13/2018 None Alleviating Factors me dication 04/13/2018 None Quality improving 04/13/2018 None Frequency of Episodes decreasing 04/13/2018 None Alleviating Factors me dication 04/13/2018 None abdominal pain Onset of Symptom months ago 02/08/2018 None abdominal pain Triggers no known associated factors 02/08/2018 None abdominal pain Pertinent Findings Denies nausea 02/08/2018 None hypertension Quality chr onic 02/08/2018 None hypertension Quality ashlyn ally hypertension 02/08/2018 None hypertension Onset and Resolution ongoing 02/08/2018 None hypertension Onset of Symptom during adulthood 02/08/2018 None hypertension Alleviating Factors medication 02/08/2018 None abdominal pain Quality i mproving 02/08/2018 None abdominal pain Frequency of Episodes decreasing 02/08/2018 None constipation Quality imp roving 02/08/2018 None constipation Frequency of Episodes decreasing 02/08/2018 None constipation Alleviating Factors medication 02/08/2018 None abdominal pain Quality c onstant 01/19/2018 None abdominal pain Onset and Resolution ongoing 01/19/2018 None abdominal pain Onset of Symptom months ago 01/19/2018 None abdominal pain Frequency of Episodes unchanged 01/19/2018 None abdominal pain Triggers no known associated factors 01/19/2018 None abdominal pain Pertinent Findings Denies nausea 01/19/2018 None abdominal pain Pertinent Findings abdominal distension 01/19/2018 None hypertension Quality ashlyn ally hypertension 01/12/2018 None hypertension Onset and Resolution ongoing 01/12/2018 None hypertension Onset of Symptom during adulthood 01/12/2018 None hypertension Blood Pressure Values not checking blood pressure at home 01/12/2018 None hypertension Alleviating Factors medication 01/12/2018 None hypertension Quality sta ble 01/12/2018 None anxiety Onset and Resolution ongoing 01/12/2018 None sore throat Quality inte rmittent 01/05/2018 None sore throat Onset and Resolution ongoing 01/05/2018 None sore throat Onset of Symptom 2 weeks ago 01/05/2018 None sore throat Pertinent Findings cough 01/05/2018 None sore throat Pertinent Findings Denies fever 01/05/2018 None abdominal pain Quality a cute 11/14/2017 None abdominal pain Quality c onstant 11/14/2017 None abdominal pain Onset and Resolution ongoing 11/14/2017 None abdominal pain Onset of Symptom months ago 11/14/2017 None abdominal pain Frequency of Episodes unchanged 11/14/2017 None abdominal pain Triggers no known associated factors 11/14/2017 None abdominal pain Pertinent Findings Denies nausea 11/14/2017 None constipation Quality int ermittent 2017 None constipation Onset and Resolution ongoing 2017 None constipation Alleviating Factors medication 2017 None constipation Pertinent Findings weight loss 2017 None abdominal pain Quality a cute 2017 None abdominal pain Quality c onstant 2017 None abdominal pain Onset and Resolution ongoing 2017 None abdominal pain Onset of Symptom months ago 2017 None abdominal pain Frequency of Episodes unchanged 2017 None abdominal pain Triggers no known associated factors 2017 None abdominal pain Pertinent Findings Denies nausea 2017 None constipation Quality int ermittent 10/13/2017 None constipation Onset and Resolution ongoing 10/13/2017 None constipation Alleviating Factors medication 10/13/2017 None constipation Pertinent Findings weight loss 10/13/2017 None abdominal pain Quality a cute 10/13/2017 None abdominal pain Quality c onstant 10/13/2017 None abdominal pain Onset and Resolution ongoing 10/13/2017 None abdominal pain Frequency of Episodes unchanged 10/13/2017 None abdominal pain Pertinent Findings Denies nausea 10/13/2017 None abdominal pain Onset of Symptom months ago 10/13/2017 None abdominal pain Triggers no known associated factors 10/13/2017 None Hospital Follow Up _ Oth er: new onset type 2 diabetes mellitus 09/26/2017 None Hospital Follow Up Quality acute 09/26/2017 None Hospital Follow Up Alleviating Factors medication 09/26/2017 None Hospital Follow Up Pertinent Findings Other: weakness 09/26/2017 None constipation Quality imp roving 09/26/2017 None constipation Quality int ermittent 09/26/2017 None constipation Onset and Resolution ongoing 09/26/2017 None constipation Alleviating Factors medication 09/26/2017 None constipation Pertinent Findings weight loss 09/26/2017 None Hospital Follow Up _ Oth er: new onset type 2 diabetes mellitus 09/12/2017 None Hospital Follow Up Quality acute 09/12/2017 None Hospital Follow Up Alleviating Factors medication 09/12/2017 None Hospital Follow Up Pertinent Findings Other: weakness 09/12/2017 None fatigue Limitation on Activities moderately limits activities 09/09/2017 None fatigue Significant Medical Conditions acid reflux 09/09/2017 None fatigue Triggers no know n associated factors 09/09/2017 None fatigue Pertinent Findings Denies fever 09/09/2017 None fatigue Pertinent Findings Denies cough 09/09/2017 None constipation Quality int ermittent 08/17/2017 None constipation Onset and Resolution ongoing 08/17/2017 None constipation Alleviating Factors medication 08/17/2017 None constipation Pertinent Findings weight loss 08/17/2017 None constipation Quality imp roving 08/17/2017 None diarrhea Onset and Resolution sudden in onset 07/20/2017 None diarrhea Onset of Symptom 2 weeks ago 07/20/2017 None diarrhea Quality stable 07/20/2017 None diarrhea Alleviating Factors diet changes 07/20/2017 None diarrhea Triggers no kno wn associated factors 07/20/2017 None diarrhea Quality constant 07/01/2017 None diarrhea Onset and Resolution sudden in onset 07/01/2017 None diarrhea Onset of Symptom 2 weeks ago 07/01/2017 None hypertension Quality [place] hypertension 06/21/2017 None hypertension Quality sta ble 06/21/2017 None hypertension Onset and Resolution ongoing [...] known associated factors 06/21/2017 None hypertension Quality [place] hypertension 03/21/2017 None hypertension Quality sta ble 03/21/2017 None hypertension Onset and Resolution ongoing [...] days ago 03/08/2017 None earache Triggers no know n triggers 03/08/2017 None earache Severity mild 03/08/2017 None earache Frequency of Episodes increasing 03/08/2017 None cough Location in the th roat 01/25/2017 None hypertension Quality [place] hypertension 01/25/2017 None hypertension Onset and Resolution [...] Findings Denies edema 01/25/2017 None hypertension Quality sta ble 01/25/2017 None cough Location in the th roat 12/20/2016 None cough Quality intermitte nt 12/20/2016 None cough Onset and Resolution ongoing 12/20/2016 None cough Pertinent Findings Denies dyspnea 12/20/2016 None cough Pertinent Findings Denies fever 12/20/2016 None cough Location in the th roat 12/01/2016 None cough Quality dry 12/01/2016 None cough Onset and Resolution ongoing 12/01/2016 None cough Onset of Symptom 1 months ago 12/01/2016 None cough Pertinent Findings Denies dyspnea 12/01/2016 None cough Pertinent Findings Denies fever 12/01/2016 None cough Location in the th roat 11/25/2016 None cough Quality productive 11/25/2016 "very [...] Findings Denies fever 11/18/2016 None hypertension Quality sta ble 08/23/2016 None hypertension Onset and Resolution ongoing 08/23/2016 None hypertension Blood Pressure Values patient checking blood pressure at home - did not bring in readings 08/23/2016 None hypertension Severity mi ld 08/23/2016 None hypertension Alleviating Factors medication 08/23/2016 None hypertension Pertinent Findings Denies dizziness 08/23/2016 None hypertension Pertinent Findings Denies dyspnea 08/23/2016 None hypertension Pertinent Findings Denies edema 08/23/2016 None hypertension Quality sta ble 04/26/2016 None hypertension Onset and Resolution ongoing 04/26/2016 None hypertension Blood Pressure Values patient checking blood pressure at home - did not bring in readings 04/26/2016 None hypertension Severity mi ld 04/26/2016 None hypertension Alleviating Factors medication 04/26/2016 [...] Denies tachypnea 02/17/2016 None edema Quality acute 02/17/2016 None edema Onset of Symptom 1 weeks ago 02/09/2016 RIGHT ELBOW edema Limitation on Activities does not limit activities 02/09/2016 None edema Frequency of Episodes daily 02/09/2016 None edema Pertinent Findings Denies dyspnea 02/09/2016 None edema Pertinent Findings Denies limb redness 02/09/2016 None edema Pertinent Findings Denies tachypnea 02/09/2016 None edema Quality acute 02/09/2016 None edema Onset of Symptom 1 weeks [...] Location diffusely 01/26/2016 None abdominal pain Quality a cute 01/26/2016 None abdominal pain Onset and Resolution sudden in onset 01/26/2016 None abdominal pain Onset of Symptom 3 days ago 01/26/2016 None abdominal pain Pertinent Findings Denies chills 01/26/2016 None abdominal pain Pertinent Findings cough 01/26/2016 None cough Location in the th roat 01/21/2016 None cough Quality dry 01/21/2016 None cough Quality constant 01/21/2016 None cough [...] Pertinent Findings cough 01/21/2016 None hypertension Quality sta ble 12/29/2015 None hypertension Onset and Resolution ongoing 12/29/2015 None hypertension Blood Pressure Values patient checking blood pressure at home - did not bring in readings 12/29/2015 None hypertension Severity mi ld 12/29/2015 None hypertension Alleviating Factors medication 12/29/2015 None hypertension Pertinent Findings Denies dizziness 12/29/2015 None hypertension Pertinent Findings Denies dyspnea 12/29/2015 None hypertension Pertinent Findings Denies edema 12/29/2015 None medication follow up Location oral intake 12/29/2015 None hypertension Quality sta ble 09/02/2015 None hypertension Onset and Resolution ongoing 09/02/2015 None hypertension Blood Pressure Values patient checking blood pressure at home - did not bring in readings 09/02/2015 None hypertension Severity mi ld 09/02/2015 None hypertension Alleviating Factors medication 09/02/2015 None hypertension Pertinent Findings Denies dizziness 09/02/2015 None hypertension Pertinent Findings Denies dyspnea 09/02/2015 None hypertension Alleviating Factors medication 05/06/2015 None hypertension Onset and Resolution ongoing 05/06/2015 None hypertension Quality sta ble 05/06/2015 None hypertension Blood Pressure Values patient checking blood pressure at home - did not bring in readings 05/06/2015 None hypertension Pertinent Findings Denies dizziness 05/06/2015 None hypertension Pertinent Findings Denies dyspnea 05/06/2015 None hypertension Severity mi ld 05/06/2015 None gastroesophageal reflux Onset and Re solution ongoing 03/05/2015 None gastroesophageal reflux Quality chronic 03/05/2015 None gastroesophageal reflux Quality heartburn 03/05/2015 None gastroesophageal reflux Significant Medications antacids 03/05/2015 - p t states that he still has to take his [place] - he does not feel like his GI tract/reflux symptoms are controlled - gastroesophageal reflux Triggers stress 03/05/2015 None gastroesophageal reflux Alleviating Factor s proton pump inhibitor 03/05/2015 None abdominal pain Onset and Resolution resolved 12/04/2014 None abdominal pain Triggers no known associated factors 12/04/2014 None abdominal pain Pertinent Findings Denies abdominal distension 12/04/2014 None abdominal pain Pertinent Findings Denies chills 12/04/2014 None abdominal pain Pertinent Findings Denies cough 12/04/2014 None abdominal pain Pertinent Findings Denies dyspepsia 12/04/2014 None abdominal pain Quality i mproving 12/04/2014 None abdominal pain Quality i ntermittent 09/24/2014 None abdominal pain Quality d ull 09/24/2014 None abdominal pain Frequency of Episodes [...] Resolution ongoing 09/09/2014 reports that he sleeps we at night except when he has to get up to use bathroom- sees Dr. Quintero. hypertension Quality chr onic 09/09/2014 None hypertension Onset and Resolution ongoing 09/09/2014 None hypertension Blood Pressure Values pt checking blood pressure - see scanned document 09/09/2014 None hypertension Severity mi ld 09/09/2014 None hypertension Significant Family History hypertension [...] nausea 07/26/2014 None Hospital Follow Up _ [facility]th er: [facility] 07/10/2014 Patient reports he [...] Pertinent Findings lightheadedness 06/06/2014 None chills Quality intermitt ent 06/06/2014 None chills Pertinent Findings lightheadedness 06/06/2014 [...] limits activities 06/06/2014 None vertigo Triggers no know n associated factors 06/06/2014 None insomnia Quality difficu lty falling asleep 05/29/2014 None insomnia Onset of Symptom _ days ago 05/29/2014 since Tuesday insomnia Pertinent Findings dizziness 05/29/2014 lightheaded insomnia Pertinent Findings Denies fever 05/29/2014 None insomnia Pertinent Findings Denies dyspnea 05/29/2014 None chills Quality intermitt ent 05/29/2014 None chills Onset of Symptom _ weeks ago 05/29/2014 since May 12 chills Pertinent Findings Denies fever 05/29/2014 None chills Pertinent Findings Denies dyspnea 05/29/2014 None chills Pertinent Findings Denies dizziness 05/29/2014 None chills Pertinent Findings Denies cough 05/29/2014 None chills Pertinent Findings lightheadedness 05/29/2014 None cough Location in the roat 05/20/2014 None cough Quality dry 05/20/2014 None cough Pertinent Findings Denies fever 05/20/2014 [...] contacts 05/20/2014 None cough Location in [facility] 03/25/2014 None cough Quality hacking 03/25/2014 None cough Quality interrupts sleep 03/25/2014 None cough Onset of Symptom 3 -4 months ago 03/25/2014 None cough Limitation on Activities does not limit activities 03/25/2014 None cough Frequency of Episodes increasing 03/25/2014 starts after supper, wors e when he lays down at night cough [...] sleep 02/08/2014 None cough Location in the th roat 02/08/2014 None cough Onset of Symptom 3 -4 months ago 02/08/2014 None cough Pertinent Findings Denies fever 02/08/2014 None cough Pertinent Findings Denies hoarseness 02/08/2014 None earache Location left ear 02/08/2014 None earache Quality acute 02/08/2014 None earache Onset of Symptom 5 days ago 02/08/2014 None cough Limitation on Activities does not limit activities 02/08/2014 None cough Frequency of Episodes increasing 02/08/2014 starts after supper, wors e when he lays down at night cough [...] 10/30/2013 states had to go to bed w ith blankets and fully dressed to get warm fatigue Onset and Resolution worse during the day 10/30/2013 None fatigue Limitation on Activities moderately limits activities 10/30/2013 None fatigue Frequency of Episodes increasing 10/30/2013 None cough Quality dry 10/08/2013 None cough Pertinent Findings Denies fever 10/08/2013 None cough Pertinent Findings nasal congestion 10/08/2013 None cough Onset of Symptom 2 weeks ago 10/08/2013 None cough Onset and Resolution ongoing 10/08/2013 None sinus congestion Quality acute 10/08/2013 None sinus congestion Quality worsening 10/08/2013 since september 24, has not h ad a fever, but has been feeling worse over the past few weeks. sinus congestion Severity moderate 10/08/2013 None sinus congestion Triggers allergens 10/08/2013 weeds and grasses hypertension Quality chr onic 06/18/2013 None hypertension Onset and Resolution ongoing [...] Alleviating Factors medication 06/18/2013 None hypertension Severity mi ld 06/18/2013 None hypertension Significant Family History cardiac disease 06/18/2013 None hypertension Significant Family History hypertension 06/18/2013 None hypertension Quality chr onic 04/04/2013 None hypertension Onset and Resolution ongoing 04/04/2013 None hypertension Blood Pressure Values pt checking blood pressure - see scanned document 04/04/2013 upset with as she isn't getting thi ngs ready for thanksgiving. mentioned several times that he is upset with 's ways, that he just has to grin and bear it hypertension Pertinent Findings Denies dizziness 04/04/2013 None hypertension Pertinent Findings Denies edema 04/04/2013 None hypertension Pertinent Findings Denies dyspnea 04/04/2013 None hypertension Pertinent Findings Denies palpitations 04/04/2013 None hypertension Onset of Symptom during adulthood 04/04/[address] ress 04/04/2013 None hypertension Alleviating Factors medication 04/04/2013 None hypertension Exacerbating Factors stress 04/04/2013 None hypertension Quality chr onic 02/19/2013 None hypertension Quality sta ble 02/19/2013 None hypertension Onset and Resolution ongoing 02/19/2013 None hypertension Blood Pressure Values patient checking blood pressure at home - did not bring in readings 02/19/2013 patient states his BP is usually ok at h ome. hypertension Pertinent Findings Denies edema 02/19/2013 None hypertension Pertinent Findings Denies dizziness 02/19/2013 None hypertension Pertinent Findings Denies dyspnea 02/19/2013 None hypertension Onset of Symptom during adulthood 02/19/2013 None hypertension Triggers no known associated factors 02/19/2013 None hypertension Alleviating Factors medication 02/19/2013 None hypertension Quality chr onic 10/16/2012 None hypertension Quality sta ble 10/16/2012 None hypertension Onset and Resolution ongoing [...] Findings Denies tachycardia 10/16/2012 None hypertension Severity mi ld 10/16/2012 None hypertension Quality chr onic 06/19/2012 None hypertension Onset and Resolution ongoing 06/19/2012 None hypertension Alleviating Factors medication 06/19/2012 None anxiety Quality chronic 06/19/2012 None anxiety Alleviating Factors medication 06/19/2012 None hypertension Onset of Symptom during adulthood 06/19/2012 None hypertension Severity mi ld 06/19/2012 None hypertension Significant Family History heart disease 06/19/2012 None hypertension Significant Family History hypertension 06/19/2012 None hypertension Significant Medical Condition s cardiac disease 06/19/2012 None hypertension Blood Pressure Values patient checking blood pressure at home - did not bring in readings 06/19/2012 None hypertension Significant Medical Condition s cerebrovascular accident 06/19/[address] ress 06/19/2012 None hypertension Exacerbating Factors change in [...] anxiety Triggers stress 06/19/2012 None hypertension Quality chr onic 03/20/2012 states want to discuss li sinopril and dosage and dr salena andrade hypertension Onset and Resolution ongoing 03/20/2012 None hypertension Blood Pressure Values patient checking blood pressure at home - did not bring in readings 03/20/2012 None hypertension Blood Pressure Values Stage 1:SBP 140-159 mmHg / DBP 90-99 mmHg 03/20/2012 last 3 nights, had pressures in the 150- 161/80-90 hypertension Severity mi ld 03/20/2012 None hypertension Significant Medical Condition s cardiac disease 03/20/2012 None hypertension Significant Medical Condition s cerebrovascular accident 03/20/[address] ress 03/20/2012 None hypertension Alleviating Factors medication 03/20/2012 [...] Denies weight loss 03/20/2012 None hypertension Quality chr onic 01/24/2012 states want to discuss li sinopril and dosage and dr salena andrade hypertension Onset and Resolution ongoing 01/24/2012 None hypertension Blood Pressure Values patient checking blood pressure at home - did not bring in readings 01/24/2012 None hypertension Severity mi ld 01/24/2012 None hypertension Significant Medical Condition s cardiac disease 01/24/2012 None hypertension Significant Medical Condition s cerebrovascular accident 01/24/[address] ress 01/24/2012 None hypertension Alleviating Factors medication 01/24/2012 [...] last 3 nights, had pressures in the 150- 161/80-90 hypertension Quality chr onic 12/20/2011 None hypertension Onset and Resolution ongoing 12/20/2011 None hypertension Blood Pressure Values patient checking blood pressure at home - did not bring in readings 12/20/2011 None hyperlipidemia Onset and Resolution ongoing 12/20/2011 None hypertension Severity mi ld 12/20/2011 None hypertension Significant Medical Condition s cardiac disease 12/20/2011 None hypertension Significant Medical Condition s cerebrovascular accident 12/20/[address] ress 12/20/2011 None hypertension Alleviating Factors medication 12/20/2011 [...] Onset of Symptom 1 weeks ago 12/09/2011 N one Post-op wound General Recovery well 12/09/2011 None Post-op wound Significant Medical C onditions hypertension 12/09/2011 None abnormal bleeding and bruising Severity moderate 12/09/2011 None abnormal bleeding and bruising Perti nent Findings Denies weakness 12/09/2011 None hypertension Quality chr onic 08/25/2011 None hypertension Onset and Resolution ongoing 08/25/2011 None hypertension Blood Pressure Values patient checking blood pressure at home - did not bring in readings 08/25/2011 None hypertension Severity mi ld 08/25/[address] ress 08/25/2011 None hypertension Alleviating Factors medication 08/25/2011 [...] muscle weakness 08/25/2011 None hypertension Significant Medical Condition s cardiac disease 08/25/2011 None hypertension Quality chr onic 06/23/2011 None hypertension Onset and Resolution ongoing 06/23/2011 None hypertension Blood Pressure Values patient checking blood pressure at home - did not bring in readings 06/23/2011 None hypertension Severity mi ld 06/23/[address] ress 06/23/2011 None hypertension Alleviating Factors medication 06/23/2011 [...] 04/19/2011 None blood pressure followup Onset and Re solution ongoing 04/19/2011 None blood pressure followup Onset of Symptom during adulthood 04/19/2011 None blood pressure followup Severity mild 04/19/2011 None blood pressure followup Exacerbating Factors stress 04/19/2011 None blood pressure followup Alleviating Factor s medication 04/19/2011 None blood pressure followup Quality chronic 03/23/2011 None blood pressure followup Onset and Re solution ongoing 03/23/2011 None blood pressure followup Blood Pressu re Values "white coat" (home SBP<129 / DBP<84) 03/23/2011 None blood pressure followup Severity mild 03/23/2011 -Dr. Merlos started him o n lisinopril. hypertension Quality chr onic 03/08/2011 Dr Merlos increased amlod ipine to 10mg daily hypertension Onset and Resolution ongoing 03/08/2011 None hypertension Onset of Symptom during adulthood 03/08/2011 None hypertension Severity mi ld 03/08/2011 None hypertension Blood Pressure Values Stage 1:SBP 140-159 mmHg / DBP 90-99 mmHg 03/08/[address] ress 03/08/2011 None hypertension Alleviating Factors medication 03/08/2011 None hypertension Exacerbating Factors stress 03/08/2011 None hypertension Quality chr onic 03/01/2011 None hypertension Onset and Resolution ongoing 03/01/2011 None hypertension Alleviating Factors medication 03/01/2011 Dr Merlos added amlodipin e 5mg hypertension Onset of Symptom during adulthood [...] finger Significant Medical Conditions prior self-inflicted trauma 03/01/20 11 None abnormal bleeding and bruising Onset and Resolution ongoing 02/01/2011 cont to have bruising lt antecubial space testicular pain Location on both testicles 02/01/2011 cont to have swelling memory loss Quality wors ening 02/01/2011 per memory loss Onset of Symptom during adulthood 02/01/2011 None abnormal bleeding and bruising Onset of Symptom 1 weeks ago 02/01/2011 N one abnormal bleeding and bruising Inter vention Required no medical therapy 02/01/2011 None abnormal bleeding and bruising Severity mild 02/01/2011 None abnormal bleeding and bruising Allev iating Factors cold compress 02/01/2011 None abnormal bleeding and bruising Allev iating Factors rest 02/01/2011 None testicular pain Location [...] penile discharge 01/27/2011 None skin lesion Triggers rec ent IV. 01/26/2011 Patient was hospitalized last week. States he had an IV in the left AC. Dismissed on Tuesday. First noticed hematoma on . Went to ER on Tuesday evening. States it is improved but was told to follow up in 2 days at the office. skin lesion Location lef t AC 01/26/2011 brusing, hematoma. skin lesion Onset of Symptom 6 days ago. 01/26/2011 None urinary retention/hesitancy Quality straining 01/15/2011 None urinary retention/hesitancy Quality hesitancy 01/15/2011 None urinary retention/hesitancy Onset an d Resolution sudden in onset 01/15/2011 started last night urinary retention/hesitancy Onset of Symptom 1 days ago 01/15/2011 No ne urinary retention/hesitancy Frequenc y of Episodes hourly 01/15/2011 states he was up throughout the night trying to urinate urinary retention/hesitancy Timing o f Episodes at night. 01/15/2011 Wak ing up every hours to urinate. gas and [...] the evening 01/15/2011 None abdominal pain Quality c hronic 01/06/2011 None abdominal pain Onset of Symptom 3 months ago 01/06/2011 None abdominal pain Triggers no known associated factors 01/06/2011 None abdominal pain Location in the [facility] 01/06/2011 however, pt states that i t is not pain, but discomfort diarrhea Onset and Resolution sudden in onset 01/06/2011 October 27-November 08; also st 9- abdominal pain Radiating the inguinal area 01/06/2011 None abdominal pain Limitation on Activities does not limit activities 01/06/2011 None nasal allergies Location in both nares 01/06/2011 None nasal allergies Onset and Resolution ongoing 01/06/2011 has gotten allergy inject ions in the past - will be retested by Dr. Henley otitis media Onset and Resolution ongoing 01/06/2011 has an appointment with Dedrick Henley who thinks he may have an inner ear infection postnasal drip Quality c lear 01/06/2011 None postnasal drip Frequency of Episodes monthly 01/06/2011 occasionally diarrhea Quality loose 01/06/2011 bowel movements have been normal since tuesday nausea Severity mild 01/06/2011 was a [...] specific time 01/06/2011 None diarrhea Triggers no kno wn associated factors 01/06/2011 None diarrhea Pertinent Findings lethargy 01/06/2011 None Advance Directives No Advance Directive data Encounters Encounter Performer Loca tion Codes Date ([id number]) [id number] EST. P ATIENT, LEVEL IV Diagnosis: Essential (primary) hypertension[ICD10: I10] Diagnosis: Cervicalgia[ICD10: M54.2] Ale Carlos MD, [facility] CPT-4: 79594 12/14/2018 ([id number]) [id number] EST. P ATIENT, LEVEL IV Diagnosis: Essential (primary) hypertension[ICD10: I10] Diagnosis: Gastro-esophageal reflux disease without esophagitis[ICD10: K21.9] Diagnosis: Alzheimer's disease with late onset[ICD10: G30.1] Ale Carlos MD, [facility] CPT-4: 04920 08/17/2018 ([id number]) [id number] EST. 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 P ATIENT, LEVEL III Diagnosis: Essential (primary) hypertension[ICD10: I10] Ale Carlos MD, C CPT-4: 61724 04/13/2018 ([id number]) [id number] EST. P ATIENT, LEVEL IV Diagnosis: Irritable bowel syndrome with constipation[ICD10: K58.1] Diagnosis: Other lesions of oral mucosa[ICD10: K13.79] Diagnosis: Dry mouth, unspecified[ICD10: R68.2] Diagnosis: Encounter for immunization[ICD10: Z23] Diagnosis: Essential (primary) hypertension[ICD10: I10] Ale Carlos MD, [facility] CPT-4: 85016 02/08/2018 ([id number]) [id number] EST. P ATIENT, LEVEL III Diagnosis: Slow transit constipation[ICD10: K59.01] Diagnosis: Dry mouth, unspecified[ICD10: R68.2] Nelly Carlos MD, [facility] CPT-4: 89643 01/19/2018 ([id number]) Miscellaneou s no charge Diagnosis: Acute pharyngitis, unspecified[ICD10: J02.9] Nelly Carlos MD, [facility] CPT-4: 81315 01/13/2018 ([id number]) 78743 EST. P ATIENT, LEVEL III Diagnosis: Candidal stomatitis[ICD10: B37.0] Diagnosis: Cough[ICD10: R05] Nelly Carlos MD, [facility] CPT-4: 14943 01/12/2018 ([id number]) 23941 EST. 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 P ATIENT, LEVEL IV Diagnosis: Irritable bowel syndrome with constipation[ICD10: K58.1] Diagnosis: Malignant neoplasm of prostate[ICD10: C61] Ale Carlos MD, [facility] CPT-4: 78800 11/14/2017 91704 EST. PATIENT, LEVEL IV Diagnosis: Slow transit constipation[ICD10: K59.01] Diagnosis: Gastro-esophageal reflux disease without esophagitis[ICD10: K21.9] Ruchi Carlos MD, [facility] CPT-4: 97977 2017 ([id number]) 27644 EST. P ATIENT, LEVEL IV Diagnosis: Essential (primary) hypertension[ICD10: I10] Diagnosis: Slow transit constipation[ICD10: K59.01] Diagnosis: Underweight[ICD10: R63.6] Diagnosis: Gastro-esophageal reflux disease without esophagitis[ICD10: K21.9] Ale Carlos MD, [facility] CPT-4: 90351 10/13/2017 ([id number]) 89604 EST. P ATIENT, LEVEL IV Diagnosis: Slow transit constipation[ICD10: K59.01] Diagnosis: Gastroparesis[ICD10: K31.84] Diagnosis: Gastro-esophageal reflux disease without esophagitis[ICD10: K21.9] Diagnosis: Dysuria[ICD10: R30.0] Ale Carlos MD, [facility] CPT-4: 88568 09/26/2017 ([id number]) 53853 EST. P ATIENT, LEVEL IV Diagnosis: Other abnormal glucose[ICD10: R73.09] Diagnosis: Slow transit constipation[ICD10: K59.01] Ale Carlos MD, [facility] CPT-4: 46527 09/12/2017 79841 EST. PATIENT, LEVEL III Diagnosis: Other fatigue[ICD10: R53.83] Ruchi Carlos MD, [facility] CPT-4: 57705 09/09/2017 ([id number]) 62381 EST. P ATIENT, LEVEL IV Diagnosis: Slow transit constipation[ICD10: K59.01] Diagnosis: Irritable bowel syndrome with constipation[ICD10: K58.1] Diagnosis: Essential (primary) hypertension[ICD10: I10] Ale Carlos MD, C CPT-4: 53385 08/17/2017 ([id number]) 35191 EST. P ATIENT, LEVEL III Diagnosis: Slow transit constipation[ICD10: K59.01] Diagnosis: Gastroparesis[ICD10: K31.84] Ale Carlos MD, [facility] CPT-4: 28845 07/20/2017 44239 EST. PATIENT, LEVEL III Diagnosis: Irritable bowel syndrome with constipation[ICD10: K58.1] Ruchi Carlos MD, [facility] CPT-4: 16587 07/01/2017 ([id number]) 59356 EST. P ATIENT, LEVEL IV Diagnosis: Essential (primary) hypertension[ICD10: I10] Diagnosis: Gas pain[ICD10: R14.1] Diagnosis: Generalized anxiety disorder[ICD10: F41.1] Diagnosis: Cervicalgia[ICD10: M54.2] Diagnosis: Pain in thoracic spine[ICD10: M54.6] Diagnosis: Unsteadiness on feet[ICD10: R26.81] Ale Carlos MD, [facility] CPT- 4: 46848 06/21/2017 ([id number]) 55196 EST. P ATIENT, LEVEL III Diagnosis: Essential (primary) hypertension[ICD10: I10] Ale aCrlos MD, [facility] CPT-4: 02611 03/21/2017 46809 EST. PATIENT, LEVEL III Diagnosis: Other allergic rhinitis[ICD10: J30.89] Nelly Carlos MD, [facility] CPT-4: 84499 03/08/2017 ([id number]) 17862 EST. P ATIENT, LEVEL III Diagnosis: Encounter for immunization[ICD10: Z23] Diagnosis: Other hypotension[ICD10: I95.89] Ale Carlos MD, [facility] CPT-4: 63680 01/25/2017 ([id number]) 20662 EST. P ATIENT, LEVEL III Diagnosis: Essential (primary) hypertension[ICD10: I10] Diagnosis: Acute recurrent maxillary sinusitis[ICD10: J01.01] Ale Carlos MD, [facility] CPT-4: 93304 12/20/2016 ([id number]) 67288 EST. P ATIENT, LEVEL III Diagnosis: Acute recurrent ethmoidal sinusitis[ICD10: J01.21] Ale Carlos MD, [facility] CPT-4: 29778 12/01/2016 ([id number]) 55227 EST. P ATIENT, LEVEL III Diagnosis: Bronchitis, not specified as acute or chronic[ICD10: J40] Diagnosis: Cough[ICD10: R05] Ale Carlos MD, [facility] CPT-4: 80347 11/25/2016 ([id number]) 56576 EST. P ATIENT, LEVEL III Diagnosis: Cough[ICD10: R05] Diagnosis: Bronchitis, not specified as acute or chronic[ICD10: J40] Diagnosis: Candidal esophagitis[ICD10: B37.81] Ale Carlos MD, [facility] CPT- 4: 99333 11/18/2016 ([id number]) 05660 EST. P ATIENT, LEVEL IV Diagnosis: Essential (primary) hypertension[ICD10: I10] Diagnosis: Mild cognitive impairment, so stated[ICD10: G31.84] Ale Carlos MD, [facility] CPT-4: 46752 08/23/2016 ([id number]) 28548 EST. P ATIENT, LEVEL III Diagnosis: Essential (primary) hypertension[ICD10: I10] Ale Carlos MD, [facility] CPT-4: 72107 04/26/2016 ([id number]) Miscellaneou s no charge Diagnosis: Olecranon bursitis, right elbow[ICD10: M70.21] Nelly Carlos MD, [facility] CPT-4: 81626 02/09/2016 ([id number]) 33433 EST. P ATIENT, LEVEL III Diagnosis: Olecranon bursitis, right elbow[ICD10: M70.21] Nelly Carlos MD, [facility] CPT-4: 13929 02/03/2016 ([id number]) 39083 EST. P ATIENT, LEVEL III Diagnosis: Generalized abdominal tenderness[ICD10: R10.817] Ale Carlos MD, [facility] CPT-4: 37221 01/26/2016 49090 EST. PATIENT, LEVEL IV Diagnosis: Other allergic rhinitis[ICD10: J30.89] Ruchi Carlos MD, [facility] CPT-4: 37883 01/21/2016 ([id number]) 57622 EST. P ATIENT, LEVEL IV Diagnosis: Essential (primary) hypertension[ICD10: I10] Diagnosis: Hypo-osmolality and hyponatremia[ICD10: E87.1] Ale Carlos MD, [facility] CPT-4: 52029 12/29/2015 ([id number]) 43458 EST. P ATIENT, LEVEL IV Diagnosis: Essential (primary) hypertension[ICD10: I10] Diagnosis: Mild cognitive impairment, so stated[ICD10: G31.84] Ale Carlos MD, [facility] CPT-4: 32365 09/02/2015 ([id number]) 14569 EST. P ATIENT, LEVEL IV Diagnosis: Mixed hyperlipidemia[ICD10: E78.2] Diagnosis: Generalized anxiety disorder[ICD10: F41.1] Diagnosis: Mild cognitive impairment, so stated[ICD10: G31.84] Diagnosis: Essential (primary) hypertension[ICD10: I10] Diagnosis: Encounter for immunization[ICD10: Z23] Ale Carlos MD, [facility] CPT-4: 83842 05/06/2015 ([id number]) 30812 EST. 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 P ATIENT, LEVEL IV Diagnosis: ESSENTIAL HYPERTENSION[ICD9: 401.9] Diagnosis: GENERALIZED ANXIETY DISEASE[ICD9: 300.02] Diagnosis: MILD COGNITIVE IMPAIREMT[ICD9: 331.83] Diagnosis: IRRITABLE COLON[ICD9: 564.1] Ale Carlos MD, [facility] CPT-4: 82406 12/04/2014 ([id number]) 36129 EST. P ATIENT, LEVEL IV Diagnosis: Abdominal pain[ICD9: 789.00] Diagnosis: GENERALIZED ANXIETY DISEASE[ICD9: 300.02] Diagnosis: Hyponatremia[ICD9: 276.1] Diagnosis: ESSENTIAL HYPERTENSION[ICD9: 401.9] Nelly Carlos MD, [facility] CPT-4: 12466 09/24/2014 ([id number]) 77106 EST. P ATIENT, LEVEL IV Diagnosis: ESSENTIAL HYPERTENSION[ICD9: 401.9] Diagnosis: Osteoarthritis[ICD9: 715.90] Diagnosis: Mild cognitive impairment with memory loss[ICD9: 331.83] Ale Carlos MD, [facility] CPT-4: 10683 09/09/2014 ([id number]) 69804 EST. P ATIENT, LEVEL III Diagnosis: GENERALIZED ANXIETY DISEASE[ICD9: 300.02] Diagnosis: Depression[ICD9: 311] Ale Carlos MD, [facility] CPT-4: 71170 07/26/2014 ([id number]) 91347 EST. P ATIENT, LEVEL IV Diagnosis: ESSENTIAL HYPERTENSION[ICD9: 401.9] Diagnosis: GENERALIZED ANXIETY DISEASE[ICD9: 300.02] Diagnosis: MILD COGNITIVE IMPAIREMT[ICD9: 331.83] Ale Carlos MD, [facility] CPT-4: 21335 07/10/2014 ([id number]) 47368 EST. P ATIENT, LEVEL IV Diagnosis: Dizziness[ICD9: 780.4] Diagnosis: GENERALIZED ANXIETY DISEASE[ICD9: 300.02] Diagnosis: Depression[ICD9: 311] Diagnosis: ESSENTIAL HYPERTENSION[ICD9: 401.9] Diagnosis: Urinary frequency[ICD9: 788.41] Ale Carlos MD, [facility] CPT-4: 33206 06/06/2014 ([id number]) 55524 EST. P ATIENT, LEVEL IV Diagnosis: ESSENTIAL HYPERTENSION[ICD9: 401.9] Diagnosis: GENERALIZED ANXIETY DISEASE[ICD9: 300.02] Diagnosis: Mild cognitive impairment with memory loss[ICD9: 331.83] Ale Carlos MD, [facility] CPT-4: 96024 05/29/2014 ([id number]) 27389 EST. P ATIENT, LEVEL IV Diagnosis: Pneumonia[ICD9: 486] Diagnosis: COUGH[ICD9: 786.2] Diagnosis: Hyponatremia[ICD9: 276.1] Diagnosis: ALLERGIC RHINITIS[ICD9: 477.9] Ale Carlos MD, [facility] CPT-4: 40496 05/20/2014 ([id number]) 01972 EST. P ATIENT, LEVEL III Diagnosis: ESSENTIAL HYPERTENSION[ICD9: 401.9] Diagnosis: Cough[ICD9: 786.2] Ale Carlos MD, [facility] CPT-4: 43523 03/25/2014 ([id number]) 34931 EST. P ATIENT, LEVEL III Diagnosis: COUGH[ICD9: 786.2] Diagnosis: ALLERGIC RHINITIS[ICD9: 477.9] Nelly Carlos MD, [facility] CPT- 4: 08943 02/08/2014 ([id number]) 03768 EST. P ATIENT, LEVEL III Diagnosis: ESSENTIAL HYPERTENSION[ICD9: 401.9] Diagnosis: Nasal congestion[ICD9: 478.19] [facility] CPT-4: 94407 12/24/2013 ([id number]) 09672 EST. P ATIENT, LEVEL III Diagnosis: Seasonal allergies[ICD9: 477.9] Diagnosis: Nasal congestion[ICD9: 478.19] Diagnosis: ABNORMAL LOSS OF WEIGHT[ICD9: 783.21] [facility] CPT-4: 10691 11/20/2013 ([id number]) 72084 EST. P ATIENT, LEVEL III Diagnosis: ABNORMAL LOSS OF WEIGHT[ICD9: 783.21] Diagnosis: MALAISE AND FATIGUE[ICD9: 780.79] Diagnosis: Hyponatremia[ICD9: 276.1] [facility] CPT- 4: 73855 10/30/2013 ([id number]) 38618 EST. P ATIENT, LEVEL III Diagnosis: Acute maxillary sinusitis[ICD9: 461.0] Diagnosis: COUGH[ICD9: 786.2] [facility] CPT-4: 12938 10/08/2013 ([id number]) 67304 EST. P ATIENT, LEVEL IV Diagnosis: ESSENTIAL HYPERTENSION[SNOMED: 30378647] Diagnosis: GENERALIZED ANXIETY DISEASE[ICD9: 300.02] Diagnosis: OSTEOARTH NOS-UNSPEC[ICD9: 715.90] Diagnosis: Coronary artery disease[ICD9: 414.00] Ale Carlos MD, [facility] CPT-4: 46714 06/18/2013 ([id number]) 28711 EST. P ATIENT, LEVEL III Diagnosis: ESSENTIAL HYPERTENSION[SNOMED: 49697996] Ale Carlos MD, [facility] CPT-4: 94306 04/04/2013 ([id number]) 99492 EST. P ATIENT, LEVEL IV Diagnosis: ESSENTIAL HYPERTENSION[SNOMED: 78208029] Diagnosis: Leukopenia[ICD9: 288.50] Diagnosis: Encounter for long-term (current) use of other medications[ICD9: V58.69] Ale Carlos MD, [facility] CPT-4: 29854 02/19/2013 ([id number]) 14620 EST. P ATIENT, LEVEL IV Diagnosis: ESSENTIAL HYPERTENSION[SNOMED: 51866667] Diagnosis: MILD COGNITIVE IMPAIREMT[ICD9: 331.83] Ale Carlos MD, [facility] CPT-4: 11062 10/16/2012 ([id number]) 22577 EST. P ATIENT, LEVEL IV Diagnosis: ESSENTIAL HYPERTENSION[SNOMED: 47848127] Diagnosis: GENERALIZED ANXIETY DISEASE[ICD9: 300.02] Diagnosis: IRRITABLE COLON[ICD9: 564.1] Ale Carlos MD, [facility] CPT-4: 56345 03/20/2012 38874 EST. PATIENT, LEVEL IV Diagnosis: ESSENTIAL HYPERTENSION[SNOMED: 04195425] Diagnosis: Osteoarthritis[ICD9: 715.90] Diagnosis: HYPERLIPIDEMIA[ICD9: 272.4] Ale Carlos MD, [facility] CPT-4: 00421 01/24/2012 44916 EST. PATIENT, LEVEL IV Diagnosis: ESSENTIAL HYPERTENSION[SNOMED: 80718437] Diagnosis: BPH W URINARY OBS/LUTS[ICD9: 600.01] Ale Carlos MD, [facility] CPT-4: 08058 12/20/2011 ([id number]) 95464 EST. P ATIENT, LEVEL III Diagnosis: Lump in the groin[ICD9: 789.30] Ale Carlos MD, [facility] CPT-4: 46588 12/09/2011 ([id number]) 98605 EST. P ATIENT, LEVEL IV Diagnosis: ESSENTIAL HYPERTENSION[SNOMED: 87606059] Diagnosis: Mild cognitive impairment[ICD9: 331.83] Ale Carlos MD, [facility] CPT-4: 60064 08/25/2011 ([id number]) 26503 EST. P ATIENT, LEVEL IV Diagnosis: ESSENTIAL HYPERTENSION[SNOMED: 49122718] Diagnosis: GENERALIZED ANXIETY DISEASE[ICD9: 300.02] Diagnosis: MILD COGNITIVE IMPAIREMT[ICD9: 331.83] Diagnosis: IRRITABLE COLON[ICD9: 564.1] Ale Carlos MD, [facility] CPT-4: 26529 06/23/2011 ([id number] 34925 EST. 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 PATIENT, LEVEL I Diagnosis: ESSENTIAL HYPERTENSION[SNOMED: 35721675] Ale Carlos MD, [facility] CPT-4: 92725 03/23/2011 87853 EST. PATIENT, LEVEL III Diagnosis: ESSENTIAL HYPERTENSION[SNOMED: 70993495] Diagnosis: Laceration of finger, index[ICD9: 883.0] Ale Carlos MD, [facility] CPT-4: 79730 03/08/2011 57207 EST. PATIENT, LEVEL III Diagnosis: ESSENTIAL HYPERTENSION[SNOMED: 75062949] Diagnosis: Irritable bowel syndrome (IBS)[ICD9: 564.1] Ale Carlos MD, [facility] CPT-4: 85515 03/01/2011 95043 EST. PATIENT, LEVEL IV Diagnosis: Mild cognitive impairment with memory loss[ICD9: 331.83] Diagnosis: GENERALIZED ANXIETY DISEASE[ICD9: 300.02] Diagnosis: Bruising[ICD9: 924.9] Diagnosis: HYDROCELE[ICD9: 603.9] Ale Carlos MD, [facility] CPT-4: 08276 02/01/2011 22264 EST. PATIENT, LEVEL III Diagnosis: Testicular pain[ICD9: 608.9] Diagnosis: GENERALIZED ANXIETY DISEASE[ICD9: 300.02] Nelly Carlos MD, [facility] CPT-4: 16852 01/27/2011 65360 EST. PATIENT, LEVEL III Diagnosis: Arm bruise[ICD9: 923.9] Nelly Carlos MD, [facility] CPT-4: 77514 01/26/2011 OFFICE VISIT, NEW - LEVEL 4 Diagnosis: DIARRHEA[ICD9: 787.91] Diagnosis: Elevated liver function tests[ICD9: 790.6] Diagnosis: Abdominal discomfort[ICD9: 789.00] Ale Carlos MD, [facility] CPT- 4: 71255 01/06/2011 Plan of Care Planned Activity Notes C odes Status Date Patient Education: Patient Medication Summary Completed 01/23/2019 Visit Plan: Medicare Exam - today w e discussed the patients past history, immunizations, preventative exams/evaluations - colonoscopy, fecal occult blood testing, routine labs for renal function, glucose, cholesterol, osteoporosis evaluations, cardiovascular testing and cancer screenings. We have also discussed mental health and the signs/symptoms of depression. The patient was advised of home safety evaluations and the need to make sure that as the aging process continues, we need to be aware of different ways to make the home a safer place to reside. The patient has also been counseled that exercise is necessary - and of utmost importance as we age to help decrease fall risk and to maintain independence in the home. Today we discussed the need for the patient to create paperwork for Advanced directives as well as for the patient to provide this office with a copy of her DOPA paperwork for health care surrogate. 01/16/2019 Appointment: [phone] [phone] [facility] - Annual Wellness Visit 01/16/2019 Patient Education: Patient Medication Summary Completed 01/16/2019 Visit Plan: Hypertension - well con trolled - continue with current medications, continue with no added salt diet. Pt has been encouraged to exercise daily. The pt has been advised to call the office if there are any acute concerns about change in blood pressure readings at home. Neck pain - not well controlled - I have recommended the following: use icy hot on your neck take aleve one pill twice daily x 3 days then one pill daily in the afternoon x 12 more days do the neck stretches twice daily x 1 week then at least one time a day x 1 week then as needed if your neck starts to get stiff or painful again. 12/14/2018 Appointment: Ale Carlos WPtel: [phone] [facility] (15 min) Moderate 12/14/2018 Patient Education: Patient Medication Summary Completed 12/14/2018 Patient Education: .Cervicalgia Neck Pain Completed 12/14/2018 Visit Plan: Hypertension - well con trolled - continue with current medications, continue with [...] office if the symptoms are not improving. restart ranitidine, continue with protonix. - pt was told to stop this medication by cardiology - however with his hx of multiple ER visits and trips to this office as well as his GI specialist- I would advised AGAINST stopping these medications. Dementia - progressive - at this time he is to continue with namenda - and we will keep him off of aricept due to his GI issues while on this medication. 08/17/2018 Appointment: Ale Carlos WPtel: [facility] (15 min) Moderate 08/17/2018 Patient Education: Patient Medication Summary Completed 08/17/2018 Visit Plan: Hypertension - well con trolled - continue with current medications, continue with no added salt diet. Pt has been encouraged to exercise daily. The pt has been advised to call the office if there are any acute concerns about change in blood pressure readings at home. Abrasion of left forearm - treated with medihoney. 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 05/18/2018 Appointment: Ale Carlos WPtel: [phone] [facility] (15 min) Moderate 05/18/2018 Patient Education: Patient Medication Summary Completed 05/18/2018 Visit Plan: Hypertension - I talked to Dr. Merlos and he had his staff call Dr. Dash for an appt to discuss his medications and symptoms. Dry mouth, Oral pain - stop the Cetirizine as this may be augmenting your dry mouth. if stopping the cetirizine does not help, we need to consider a trial of holding the VESICARE to see if holding this medication for a few weeks makes a difference in your mouth discomfort. 04/13/2018 Appointment: Ale Carlos WPtel: [facility] (30 min) Complex 04/13/2018 Patient Education: Patient Medication Summary Completed 04/13/2018 Visit Plan: Hypertension - well con trolled - continue with current medications, continue with no added salt diet. Pt has been encouraged to exercise daily. The pt has been advised to call the office if there are any acute concerns about change in blood pressure readings at home. Dry mouth - uncontrolled symptoms - discussed with pt - needs to try the following: xylitol, Act lozenges or sour candies - like kendrick jolly ranchers or grape jolly ranchers. the other options would be sour lemon drops biotene dry mouth spray - it is over the counter Pt has also been advised that we will send a refill for magic mouthwash to the pharmacy. - Constipation - continue with trulance, current higher fober diet, and monitor symptoms of GI upset. 02/08/2018 Appointment: Ale Carlos WPtel: [phone] [facility] (30 min) Complex 02/08/2018 Patient Education: Patient Medication Summary Completed 02/08/2018 Patient Education: Hypertension Completed 02/08/2018 Appointment: Nelly Keen WPtel: [phone] [phone] (15 min) Moderate 02/02/2018 Visit Plan: Vwjnpljfsnan-nfcjjzl-yq start trulance 3mg daily Dry mouth-biotene mouth spray 01/19/2018 Appointment: Ale Carlos WPtel: [facility] (30 min) Complex 01/19/2018 Patient Education: Patient Medication Summary Completed 01/19/2018 Appointment: Nurse Visit 01/13/2018 Patient Education: Patient Medication Summary Completed 01/13/2018 Visit Plan: Thrush -okay to restart the nystatin -take as directed-return if symptoms do not resolve or if any worse Cough-improving -you don't need to take the cough syrup routinely -only use as needed -call with any questions or concerns 01/12/2018 Appointment: Nelly Keen WPtel: [phone] (15 min) Moderate 01/12/2018 Patient Education: Patient Medication Summary Completed 01/12/2018 Visit Plan: Hypertension - well con trolled - continue with current medications, continue with no added salt diet. Pt has been encouraged to exercise daily. The pt has been advised to call the office if there are any acute concerns about change in blood pressure readings at home. Chronic Depression and anxiety - discussed with pt and his - we will continue with current antidepressant -monitor symptoms. Cough - post-nasal drainage - supportive care. Abdominal pain, chronic GI upset - we will decrease pill burden by stopping his multivitamin, calcium, vitamin d, ranitidine, and dicyclomine as it does not seem to be helping his symptoms. He is reporting peace officer pain - i suspect that some of this is due to his eating early at night then taking at least 10 pills at bedtime without any food in his stomach, then excessive acid production with the pill burden causing him to wake up with pain in the peace officer hours. I have recommended that he is to eat 1/2 a sandwich with his ensure at bedtime. 01/05/2018 Appointment: Ale Carlos WPtel: [phone] [facility] (15 min) Moderate 01/05/2018 Patient Education: Patient Medication Summary Completed 01/05/2018 Appointment: [phone] [facility] (30 min) Complex 01/04/2018 Visit Plan: Irritable bowel syndrom e with constipation - continue with trulance as [...] Referral: External, Ordering Provider Referral Appointment Confirmed 11/03/2017 Care Plan: Referral Order SNOMED-CT : [id number] Pending 10/28/2017 Visit Plan: Constipation - uncontro lled - pt given linzess samples per Dr. [...] improving. 2017 Appointment: Ruchi Agee WPtel: [phone] [facility] (15 min) Moderate 2017 Patient Education: Patient Medication Summary Completed 2017 Visit Plan: Hypertension - well con trolled - continue with current medications, continue with [...] portion size. 10/13/2017 Appointment: Ale Carlos [facility]el[facility] (30 min) Complex 10/13/2017 Patient Education: Patient [...] the medication. 09/26/2017 Appointment: Ale Carlos WPtel: [facility] (15 min) Moderate 09/26/2017 Patient Education: Patient Medication Summary Completed 09/26/2017 Appointment: Ale Carlos WPtel: [address] [place], [place] [id number] (30 min) Complex 09/14/2017 Visit Plan: Constipation [...] the ER. 09/12/2017 Appointment: Ale Carlos WPtel: [address] [place], [place] [phone] (30 min) Complex 09/12/2017 Patient Education: Patient Medication Summary Completed 09/12/2017 Visit Plan: Ongoing fatigue - persi stent - will check labs and treat as indicated - pt is to notify clinic if symptoms do not improve, if they worsen, or with any changes, questions, or concerns. 09/09/2017 Appointment: Ruchi Agee WPtel: [address] [place], [place] [phone] (30 min) Complex 09/09/2017 Patient Education: Patient Medication Summary Completed 09/09/2017 Care Plan: Vitamin D 25 Oh Pending 09/09/2017 Visit Plan: Constipation - continue with Miralax - monitor symptoms - - if constipation worsens - restart Senna. Continue with regular diet. Hypertension - well controlled - continue with current medications, jamia nue with no added salt diet. Pt has been encouraged to exercise daily. The pt has been advised to call the office if there are any acute concerns about change in blood pressure readings at home. 08/17/2017 Appointment: Ale Carlos WPtel: [facility] (15 min) Moderate 08/17/2017 Patient Education: Patient Medication Summary Completed 08/17/2017 Visit Plan: Constipation and Suspec jennifer Gastroparesis - Start on Reglan at a [...] regular foods. 07/20/2017 Appointment: Ale Carlos WPtel: [facility] (30 min) Complex 07/20/2017 Appointment: Ale Carlos WPtel: [facility] [place] (30 min) Complex 07/20/2017 Patient Education: Patient Medication Summary Completed 07/20/2017 Appointment: Ale Carlos WPtel: [address] [facility] [place] (30 min) Complex 07/19/2017 Appointment: Ale Carlos WPtel: [facility] [place] (15 min) Moderate 07/18/2017 Visit Plan: Constipation - uncontro lled - I have discussed with the patient the need for adequate fiber and water intake to facilitate soft, easily passed stools. The pt noted understanding of our conversation. I h ave given the patient a recipe for "power pudding" - equal parts, bran flakes, prune juice, and apple sauce. The pt is to call if symptoms not improved on this regimen. 07/01/2017 Appointment: [facility] [place] ([facility]) Complex 07/01/2017 Appointment: Ruchi Agee WPtel: 1015 [facility] [place] (30 min) Complex 07/01/2017 Patient Education: Patient Medication Summary Completed 07/01/2017 Visit Plan: Neck and upper back reji n and gait unsteadiness - referral to [facility] for upper and low back pain and left arm pain and have gait eval. get Aspercreme from [employer] for your upper neck/upper back. Abdominal upset/cramping - lactaid pills - take before you drink milk or eat cheese or ice cream or yogurt use gas-ex one pill three times daily Chronic anxiety - stable - continue with current management. 06/21/2017 Appointment: Ale Carlos WPtel: [address] [facility] (30 min) Complex 06/21/2017 Patient Education: Patient Medication Summary Completed 06/21/2017 Visit Plan: Hypertension - well con trolled - continue with current medications, continue with no added salt diet. Pt has been encouraged to exercise daily. The pt has been advised to call the office if there are any acute concerns about change in blood pressure readings at home. 03/21/2017 Appointment: Ale Carlos WPtel: [address] [facility] (30 min) Complex 03/21/2017 Patient Education: Patient Medication Summary Completed 03/21/2017 Visit Plan: Allergies - recommended pt to use allergy medication as prescribed. Pt has been counseled as to the appropriate use of the medication. Pt to call if allergy symptoms are not controlled with the medicati on. If using nasal spray, instructions as follows: Nasal spray- use twice daily, one spray per nostril twice daily, after 30 minutes, rinse out nose with saline spray.. Use opposite hand per nostril to spray in the nasal steroid allergy spray. 03/08/2017 Appointment: Nelly Keen WPtel: 1013 [phone] [place] (30 min) Complex 03/08/2017 Patient Education: Patient [...] shot 01/25/2017 Appointment: Ale Carlos WPtel: [address] [facility] (30 min) Complex 01/25/2017 Patient Education: Patient Medication Summary Completed 01/25/2017 Visit Plan: Hypertension - well con trolled - continue with current medications, continue with no added salt diet. Pt has been encouraged to exercise daily. The pt has been advised to call the office if there are any acute concerns about change in blood pressure readings at home. Sinusitis/cough - improving - continue with supportive care, pt to call if symptoms are not improving. 12/20/2016 Appointment: Ale Carlos WPtel: [address] (30 min) Complex 12/20/2016 Patient Education: Patient Medication Summary Completed 12/20/2016 Patient Education: Hypertension Completed 12/20/2016 Appointment: Ruchi Agee WPtel: 1015 [facility] [place] [address] - Annual Wellness Visit 12/03/2016 Visit Plan: Ethmoid sinusitis - jose ck sinus xray - if positive will call [...] worsen. 11/25/2016 Appointment: Ale Carlos WPtel: [address] [facility] (15 min) Moderate 11/25/2016 Patient Education: Patient [...] have thrush. 11/18/2016 Appointment: Ale [facility]Ptel[facility]2 [facility] [place] (15 min) Moderate 11/18/2016 Patient Education: Patient Medication Summary Completed 11/18/2016 Visit Plan: Hypertension - well con trolled - continue with current medications, continue with no added salt diet. Pt has been encouraged to exercise daily. The pt has been advised to call the office if there are any acute concerns about change in blood pressure readings at home. Memory loss - stable - continue with aricept and namenda. labs to be done from [facility] 08/23/2016 Appointment: Ale Carlos [facility]Ptel: [facility]1 [facility] [place] (30 min) Complex 08/23/2016 Patient Education: Patient Medication Summary Completed 08/23/2016 Patient Education: Hypertension Completed 08/23/2016 Visit Plan: Hypertension - well con trolled - continue with current medications, continue with no added salt diet. Pt has been encouraged to exercise daily. The pt has been advised to call the office if there are any acute concerns about change in blood pressure readings at home. 04/26/2016 Appointment: Ale Carlos [facility]Ptel: [facility]1 [facility] [place] (30 min) Complex 04/26/2016 Patient Education: Patient Medication Summary Completed 04/26/2016 Visit Plan: Joint effusion - recomm ended drainage and referral to orthopedic surgeon for surgical debridement of bursa 02/17/2016 Appointment: Ale Carlos WPtel: [facility] [place] (30 min) Complex 02/17/2016 Patient Education: Patient Medication Summary Completed 02/17/2016 Visit Plan: Bursitis-right elbow-dr healy today in the office- increase anti inflammatories for the next 5 days as directed-call if symptoms do not resolve, swelling returns or new symptoms develop-patient verbalized understanding of plan. 02/09/2016 Appointment: Nelly Keen [facility]Ptel[phone] [place] (30 min) Complex 02/09/2016 Patient Education: Patient Medication Summary Completed 02/09/2016 Patient Education: Patient Medication Summary Completed 02/05/2016 Care Plan: Metabolic Pending 02/05/2016 Visit Plan: Bursitis-right elbow-dr healy today in the office- increase anti inflammatories for the next 5 days as directed-call if symptoms do not resolve, swelling returns or new symptoms develop-patient verbalized understanding of plan. 02/03/2016 Appointment: Nelly Keen WPtel: [facility]0 [phone] (30 min) Complex 02/03/2016 Patient Education: Patient Medication Summary Completed 02/03/2016 Patient Education: Patient Medication Summary Completed 01/30/2016 Care Plan: Metabolic Due on Pending 01/30/2016 Visit Plan: Abdominal pain - nausea - Pt to have IV fluids at hospital 01/26/2016 Appointment: Ale Carlos WPtel: [facility]8 [facility] (30 min) Complex 01/26/2016 Patient Education: Patient Medication Summary Completed 01/26/2016 Visit Plan: Allergies - chronic - r ecommended pt to use allergy medication as prescribed. Pt has been counseled as to the appropriate use of the medication. Pt to call if allergy symptoms are not controlled with th e medication. If using nasal spray, instructions as follows: Nasal spray- use twice daily, one spray per nostril twice daily, after 30 minutes, rinse out nose with saline spray.. Use opposite hand per nostril to spray in the nasal steroid allergy spray. 01/21/2016 Appointment: Nelly Keen WPtel: 101 [phone] (30 min) Complex 01/21/2016 Patient Education: Patient Medication Summary Completed 01/21/2016 Visit Plan: Hypertension - well con trolled - continue with current medications except for [...] Completed 12/29/2015 Visit Plan: Hypertension - well con trolled - continue with current medications, continue with [...] of treatment. 09/02/2015 Appointment: Ale Carlos WPtel: [phone] [facility] (15 min) Moderate 09/02/2015 Patient Education: Patient Medication Summary Completed 09/02/2015 Patient Education: Hypertension Completed 09/02/2015 Visit Plan: Hypertension - well con trolled - continue with current medications, continue with [...] injection today 05/06/2015 Appointment: Ale Carlos [facility]Ptel: [facility]1 [facility] (15 min) Moderate 05/06/2015 Patient Education: Patient Medication Summary Completed 05/06/2015 Patient Education: Hypertension Completed 05/06/2015 Care Plan: COMPLETE CBC AUTOMATED LOINC : 88027-1 Ordered 05/06/2015 Visit Plan: Hypertension - well con trolled - continue with current medications, continue with [...] medications. 03/05/2015 Appointment: Ale Carlos [facility]Ptel[facility]5 [facility] (30 min) Complex 03/05/2015 Patient Education: Patient Medication Summary Completed 03/05/2015 Patient Education: Hypertension Completed 03/05/2015 Appointment: Nurse Visit 02/19/2015 Patient Education: Patient Medication Summary Completed 02/19/2015 Visit Plan: Hypertension - well con trolled - continue with current medications, continue with [...] improved. 12/04/2014 Appointment: Ale Carlos [facility]Ptel: [facility]5 [facility] Follow up 12/04/2014 Patient Education: Patient [...] Plan: CT ABD & PELV 1/> [facility] : 12626-4 Ordered 09/24/2014 Visit Plan: Hypertension - well con trolled - continue with current medications, continue with [...] the last office visit. The pt has e xpected periods of exacerbation with abatement of the symptoms with change in situational exposure. No change in current medications. INSTRUCTED PATIENT THAT HE SHOULD NOT BE DRIVING TO [place] 07/26/2014 Appointment: Sick 07/26/2014 Appointment: Sick 07/26/2014 Patient Education: Patient Medication Summary Completed 07/26/2014 Visit Plan: Hypertension - well con trolled - continue with current medications, continue with [...] medication list. 07/10/2014 Appointment: Ale Carlos WPtel: [facility] Follow up 07/10/2014 Patient Education: Patient Medication Summary Completed 07/10/2014 Patient Education: Hypertension Completed 07/10/2014 Appointment: Ale Carlos WPtel: [facility]5 [facility] Follow up 06/20/2014 Appointment: Ale Carlos WPtel: [facility]5 [facility] Follow up 06/10/2014 Visit Plan: Anxiety and depression - uncontrolled - Pt has been counseled about the diagnosis of depression and anxiety, the potential causes, and risks associated with the diagnosis. The pt denies suicidal ideatio n, or plans. The patient has been counseled [...] in blood pressure readings at home. Urinary gjijbeyqo-RWZ-qeibxa flomax to bedtime Dizziness-stop hydrocodone and ativan [...] 3 WEEKS 05/29/2014 Appointment: Ale Carlos WPtel: [facility] [place] Sick 05/29/2014 Patient Education: Patient Medication Summary Completed 05/29/2014 Patient Education: Hypertension Completed 05/29/2014 Appointment: Ale Carlos WPtel: [facility]5 [facility] [place] Lab Draw 05/23/2014 Patient Education: Patient Medication Summary Completed 05/23/2014 Visit Plan: Pneumonia - Pt has been diagnosed with pneumonia by physical exam. A chest xray has been ordered as have antibiotics. The pt is aware of the diagnosis and the need for acute treatment of this illness. A ygcycgpz-aqbvh-nbouvym flonase nasal spray Hyponatremia-increase gatorade as directed 05/20/2014 Visit Plan: Pneumonia - Pt has been diagnosed with pneumonia by physical exam. A chest xray has been ordered as have antibiotics. The pt is aware of the diagnosis and the need for acute treatment of this illness. A emecxwcv-zvmop-mfhnsvn flonase nasal spray Hyponatremia-increase gatorade as directed ADDENDUM: RECOMMEND PATIENT START ON ALBUTEROL NEBULIZER TREATMENTS EVERY 4 HOURS NEEDED FOR SHORTNESS OF BREATH/WHEEZING. DX SECONDARY PNEUMONIA FROM INFLUENZA, COUGH 05/20/2014 Patient Education: Patient Medication Summary Completed 05/20/2014 Appointment: Ale Carlos WPtel: [facility]4 [facility] Injection 03/26/2014 Patient Education: Patient Medication Summary Completed 03/26/2014 Visit Plan: Hypertension - well con trolled -continue with no added salt diet. Pt [...] Dr. Merlos. 03/25/2014 Appointment: Ale Carlos WPtel: [facility]5 [facility] Follow up 03/25/2014 Patient Education: Patient Medication Summary Completed 03/25/2014 Patient Education: Hypertension Completed 03/25/2014 Visit Plan: Igqmw-rszbmlucm-ccbmxkr laryngeal reflux-RX for protonix (patient is on plavix) and follow up in 1 month. Call if symptoms do not improve or if any worse Allergies-improved on flonase-continue as directed and call if symptoms return. 02/08/2014 Patient Education: Patient Medication Summary Completed 02/08/2014 Visit Plan: Hypertension - well con trolled - continue with current medications, continue with no added salt diet. Pt has been encouraged to exercise daily. The pt has been advised to call the office if there are any acute concerns about change in blood pressure readings at home. 12/24/2013 Appointment: Ale Carlos WPtel: [address] [place], [place] [phone] Follow up 12/24/2013 Patient Education: Patient Medication Summary Completed 12/24/2013 Visit Plan: Allergies - chronic - r ecommended pt to use allergy medication as prescribed. Pt has been counseled as the appropriate use of the medication. Pt to call if allergy symptoms are not controlled with the m edication. If using nasal spray, instructions as follows: Nasal spray- use twice daily, one spray per nostril twice daily, after 30 minutes, rinse out nose with saline spray.. Use opposite hand per nostril to spray in the nasal steroid allergy spray. Weight loss - improved - pt to continue with increase in protein and portion size. 11/20/2013 Appointment: Ale Carlos WPtel: [address] [place], [place] [phone] Follow up 11/20/2013 Patient Education: Patient Medication Summary Completed 11/20/2013 Appointment: Ale Carlos WPtel: [address] [place], [place] [phone] Follow up 11/06/2013 Visit Plan: Weight loss-increase po rtions-add snacks in the morning and afternoon-follow up in 3 weeks for weight check Low sodium-check labs-restart gatorade Euzsiex-pvrprh-gpwse labs and UA 10/30/2013 Patient Education: Patient Medication Summary Completed 10/30/2013 Appointment: Ale Carlos WPtel: [address] [place], [place] [phone] Follow up 10/16/2013 Visit Plan: Sinusitis - Pt has acut e infection - pain in face, maxillary region, Pt informed to use decongestant, RX given to patient, sinus rinses also recommended. Call if symptoms do not show improvement. Tick b ite - rx for doxycycline Allergies - chronic [...] Completed 10/08/2013 Visit Plan: Hypertension - well con trolled - continue with current medications, continue with [...] Merlos. 06/18/2013 Appointment: Ale Carlos [facility]Ptel: [facility] Follow up 06/18/2013 Patient Education: Patient Medication Summary Completed 06/18/2013 Patient Education: Hypertension Completed 06/18/2013 Visit Plan: Hypertension - uncontro lled - the patient's medications have been modified as documented in the visit note. The patient has been counseled to cut back on salt in diet for a no added salt diet, low fat d iet, start an exercise program with low weight bearing exercises and higher aerobic activity for heart health. The patient is to check blood pressure readings as an outpatient and either fax, call, or email the readings to the office next week for practicioner to review. The pt is to call for acute concerns. 04/04/2013 Appointment: Ale Carlos [facility]Ptel: [facility]2 [facility] Follow up 04/04/2013 Patient Education: Patient Medication Summary Completed 04/04/2013 Patient Education: Hypertension Completed 04/04/2013 Visit Plan: Hypertension - well con trolled at home per patient report, continue with [...] with report. 02/19/2013 Appointment: Ale Carlos WPtel: 1011 [facility] Follow up 02/19/2013 Patient Education: Patient Medication Summary Completed 02/19/2013 Patient Education: Hypertension Completed 02/19/2013 Patient Education: Patient Medication Summary Completed 02/06/2013 Visit Plan: Hypertension - well con trolled - continue with current medications, continue with [...] loss. 10/16/2012 Appointment: Ale Carlos [facility]Ptel: [facility] Follow up 10/16/2012 Patient Education: Patient Medication Summary Completed 10/16/2012 Patient Education: Hypertension Completed 10/16/2012 Visit Plan: Hypertension - well con trolled - continue with current medications, continue with [...] colon return. 06/19/2012 Appointment: Ale Carlos WPtel: [facility]0 [facility] Follow up 06/19/2012 Patient Education: Patient Medication Summary Completed 06/19/2012 Patient Education: Hypertension Completed 06/19/2012 Visit Plan: Hypertension - well con trolled - continue with current medications, continue with [...] the bentyl and see how he does, t hen trial off of the bentyl. 03/20/2012 Appointment: Ale Carlos WPtel: [facility]7 [facility] Follow up 03/20/2012 Patient Education: Patient Medication Summary Completed 03/20/2012 Patient Education: High Blood Pressure: Essential Hypertension Completed 03/20/2012 Appointment: Ale Carlos WPtel: [facility] Follow up 02/22/2012 Visit Plan: Hypertension - well con trolled - continue with current medications, continue with [...] as needed. 01/24/2012 Appointment: Ale Carlos WPtel: [facility] Follow up 01/24/2012 Patient Education: Patient Medication Summary Completed 01/24/2012 Patient Education: High Blood Pressure: Essential Hypertension Completed 01/24/2012 Visit Plan: Hypertension and Jay ry artery disease- recommended pt to cut his [...] have the biopsy until okayed by his dimensional inspector.. I anticipate it will be at least 4-6 months before he can be off of the plavix and aspirin for additonal procedures unless it is of extreme urgency. 12/20/2011 Appointment: Ale Carlos WPtel: [facility]5 [facility] Follow up 12/20/2011 Patient Education: Patient Medication Summary Completed 12/20/2011 Patient Education: High Blood Pressure: Essential Hypertension Completed 12/20/2011 Appointment: Ale Carlos WPtel: [facility]5 [facility] Other 12/13/2011 Visit Plan: Pain in groin post hear t cath with increased discomfort and increased size - will order an ultrasound for today. 12/09/2011 Appointment: Ale Carlos WPtel: [facility] [place] 12/09/2011 Patient Education: Patient Medication Summary Completed 12/09/2011 Visit Plan: Hypertension - well con trolled - continue with current medications, continue with [...] either medication. 08/25/2011 Appointment: Ale Carlos WPtel: [address] [place] [address] Other 08/25/2011 Patient Education: Patient Medication Summary Completed 08/25/2011 Patient Education: High Blood Pressure: Essential Hypertension Completed 08/25/2011 Visit Plan: Hypertension - well con trolled - continue with current medications, continue with [...] low doses. 06/23/2011 Appointment: Ale Carlos WPtel: [address] [place] [address] Other 06/23/2011 Patient Education: Patient Medication Summary Completed 06/23/2011 Patient Education: High Blood Pressure: Essential Hypertension Completed 06/23/2011 Appointment: Ale Carlos WPtel: [address] [place] [address] Other 04/26/2011 Visit Plan: Hypertension - well con trolled - continue with current medications, continue with [...] seeds, etc. 04/19/2011 Appointment: Ale Carlos WPtel: [facility]5 [facility] Other 04/19/2011 Patient Education: Patient Medication Summary Completed 04/19/2011 Patient Education: High Blood Pressure: Essential Hypertension Completed 04/19/2011 Patient Education: Diverticulosis Diet Completed 04/19/2011 Appointment: Nelly Keen WPtel: [facility]5 [facility] Other 03/23/2011 Patient Education: Patient Medication Summary Completed 03/23/2011 Patient Education: High Blood Pressure: Essential Hypertension Completed 03/23/2011 Visit Plan: Record blood pressure a nd heart rate at home and drop the readings by the office in two weeks. No change in medications today. Laceration - removed suture today - pt to call if any complications arise. 03/08/2011 Appointment: Ale Carlos WPtel: [facility]5 [facility] Other 03/08/2011 Patient Education: Patient Medication Summary Completed 03/08/2011 Patient Education: High Blood Pressure: Essential Hypertension Completed 03/08/2011 Visit Plan: Hypertension - uncontro lled - the patient's medications have been modified as documented in the visit note. The patient has been counseled to cut back on salt in diet for a no added salt diet, low fat d iet, start an exercise program with low weight [...] to two times a day. 03/01/2011 Appointment: lAe Carlos WPtel: [facility] [place] Other 03/01/2011 Patient Education: Patient Medication Summary Completed 03/01/2011 Patient Education: High Blood Pressure: Essential Hypertension Completed 03/01/2011 Appointment: Nelly Keen WPtel: 1014 [phone] [place] Injection 02/25/2011 Patient Education: Patient Medication Summary Completed 02/25/2011 Appointment: Ale Carlos WPtel: [address] [facility] [place] Injection 02/16/2011 Patient Education: Patient Medication Summary Completed 02/16/2011 Appointment: Ale Carlos [facility]Ptel: [facility] [place] Injection 02/09/2011 Patient Education: Patient Medication Summary Completed 02/09/2011 Appointment: Ale Carlso WPtel: [facility] [place] Follow up 02/02/2011 Visit Plan: Hydrocele and varicocel e- Recommend wearing boxer briefs instead of regular [...] with his son - Kenji Dash in [place]. Upon our conversation [id number], Kenji vocalized concerns for his Dad's memory. He stated that he has noticed his father not being as quick in his cognitive functioning, he has noticed some concerns with driving as well. He states that he will discuss these concerns with his parents and other siblings. 02/01/2011 Appointment: Ale Carlos WPtel: [address] [place], [place] [phone] Other 02/01/2011 Patient Education: Patient Medication Summary Completed 02/01/2011 Visit Plan: Testicular pain-improve d in the office today-but apparently had episode of acute pain last night-check ultrasound. UA done in the office negative. Anxiety - the patient continues with symptoms of anxiety (tachycardia, overwhelming sensations, stress, insomnia, etc). Instructed patient okay to take lorazepam every 8 hours as needed. 01/27/2011 Appointment: Ale Carlos WPtel: [address] [place], [place] [phone] [place] New Patient 01/27/2011 Patient Education: Patient Medication Summary Completed 01/27/2011 Visit Plan: Bruising/hematoma left arm-discussed natural and expected course of this diagnosis and to alert me if symptoms do not follow expected course or if any worse, Continue with ice/heat as needed for disc omfort. Call for any concerns. 01/26/2011 Appointment: Nelly Keen WPtel: [facility] Other 01/26/2011 Patient Education: Patient Medication Summary Completed 01/26/2011 Visit Plan: Nocturia-defer treatmen t to Dr. Quintero. Continue with proscar and flomax. Return to follow up with Dr. Quintero on Tuesday as scheduled. Call if unable to void, fever, other concerns, etc. Abdominal bloatin g, gas-recommend lactobacillus 1 po twice daily while on antibiotics. Diarrhea- resolved per patient report. Finish antibiotics for full course. PT ADMITTED TO HOSPITAL IN THE EVENING OF 01/15/11 01/15/2011 Visit Plan: Nocturia-defer treatmen t to Dr. Quintero. Continue with proscar and flomax. Return to follow up with Dr. Quintero on Tuesday as scheduled. Call if unable to void, fever, other concerns, etc. Abdominal bloatin g, gas-recommend lactobacillus 1 po twice daily while on antibiotics. Diarrhea- resolved per patient report. Finish antibiotics for full course. 01/15/2011 Appointment: [phone] [id number] Other 01/15/2011 Patient Education: Patient Medication Summary Completed 01/15/2011 Visit Plan: Abdominal symptoms with elevated liver enzymes- will [...] diet. 01/06/2011 Appointment: [phone] [id number] New Patient 01/06/2011 Patient Education: Patient Medication Summary Completed 01/06/2011 Referral: External, Ordering Provider Referral Relationship Instructions Comment INCREASE GATORADE TO THREE TIMES PER DAY X 2 DAYS THEN TWICE DAILY stop doxycycline START CEFDINIR AND ZITHROMAX . Pneumonia - Pt has been diagnosed with pneumonia by physical exam. A chest xray has been ordered as have antibiotics. The pt is aware of the diagnosis and the need for acute treatment of this illness. Trpajgxfn-ugjfm-bsqdois flonase nasal spray Hyponatremia-increase gatorade as directed INCREASE YOUR MELOXI CAM (MOBIC) TO 1/2 PILL TWICE DAILY X 5 DAYS CALL IF YOUR ELBOWS SWELLS AGAIN OR YOU DEVELOP PAIN OR OTHER CONCERNS . Bursitis-right elbow-drained today in the office-increase anti inflammatories for the next 5 days as directed-call if symptoms do not resolve, swelling returns or new symptoms develop-patient verbalized understanding of plan. . Thrush -okay to re start the nystatin -take as directed- return if symptoms do not resolve or if any worse Cough-improving -you don't need to take the cough syrup routinely -only use as needed -call with any questions or concerns . Hypertension - wel l controlled at home per patient report, continue [...] and call pt with report. Increase your loraze anmol to 1/2 tablet 3 times per day as needed. If you are still feeling anxious, may take an additional half tablet at bedtime only. Your testicular ultrasound is scheduled for Tuesday at 2:00pm. We will call you with the results. Bring your blood pressure log to your appointment with Dr. Carlos on Tuesday. . Testicular pain-improved in the offic e today-but apparently had episode of acute pain last night-check ultrasound. UA done in the office negative. Anxiety - the patient continues with symptoms of anxiety (tachycardia, overwhelming sensations, stress, insomnia, etc). Instructed patient okay to take lorazepam every 8 hours as needed. . Pneumonia - Pt has been diagnosed with pneumonia by physical exam. A chest xray has been ordered as have antibiotics. The pt is aware of the diagnosis and the need for acute treatment of this illness. Celsgcvjb-qvocf-qjteycx flonase nasal spray Hyponatremia-increase gatorade as directed ADDENDUM: RECOMMEND PATIENT START ON ALBUTEROL NEBULIZER TREATMENTS EVERY 4 HOURS NEEDED FOR SHORTNESS OF BREATH/WHEEZING. DX SECONDARY PNEUMONIA FROM INFLUENZA, COUGH . Hypertension - unc ontrolled - the patient's medications have been modified [...] up to two times a day. . Constipation - unc ontrolled - pt given linzess samples per Dr. [...] symptoms are not improving. . Constipation - unc ontrolled - I have discussed with the patient the need for adequate fiber and water intake to facilitate soft, easily passed stools. The pt noted understanding of our conversation. I have given the patient a recipe for "power pudding" - equal parts, bran flakes, prune juice, and apple sauce. The pt is to call if symptoms not improved on this regimen. CHANGE YOUR BATTERIE S IN YOUR BLOOD PRESSURE MACHINE FLONASE NASAL SPRAY . Medicare Exam - today we discussed the patients past history, immunizations, preventative exams/evaluations - colonoscopy, fecal occult blood testing, routine labs for renal function, glucose, cholesterol, osteoporosis evaluations, cardiovascular testing and cancer screenings. We have also discussed mental health and the signs/symptoms of depression. The patient was advised of home safety evaluations and the need to make sure that as the aging process continues, we need to be aware of different ways to make the home a safer place to reside. The patient has also been counseled that exercise is necessary - and of utmost importance as we age to help decrease fall risk and to maintain independence in the home. Today we discussed the need for the patient to create paperwork for Advanced directives as well as for the patient to provide this office with a copy of her DOPA paperwork for health care surrogate. I sent a prescriptio n of generic zyrtec to [facility] - if it is expensive get the over the counter dose. Use saline nasal spray twice a day. . Allergies - chronic - recommended pt t o use allergy medication as prescribed. Pt has [...] in the nasal steroid allergy spray. . Ongoing fatigue - persistent - will check labs and treat as indicated - pt is to notify clinic if symptoms do not improve, if they worsen, or with any changes, questions, or concerns. . Hypertension - wel l controlled - continue with current medications, continue [...] and cbc prevnar 13 injection today . Hypertension - wel l controlled - continue with current medications, continue with no added salt diet. Pt has been encouraged to exercise daily. The pt has been advised to call the office if there are any acute concerns about change in blood pressure readings at home. Abrasion of left forearm - treated with medihoney. 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 stop the cefuroxime - start on azithromycin [...] - you have thrush. . Hypertension and C oronary artery disease- recommended pt to cut his [...] have the biopsy until okayed by his dimensional inspector.. I anticipate it will be at least 4-6 months before he can be off of the plavix and aspirin for additonal procedures unless it is of extreme urgency. CHECK LABS-CBC, CMP, UA WITH C&S IF INDICATED . Weight loss-increase portions-add snac ks in the morning and afternoon-follow up in 3 weeks for weight check Low sodium-check labs-restart gatorade Bfmwqad-aqyyez-ynafs labs and UA . Joint effusion - r ecommended drainage and referral to orthopedic surgeon for surgical debridement of bursa . Hypertension - wel l controlled - continue with current medications, continue [...] need increased dose of either medication. . Irritable bowel sy ndrome with constipation - continue with trulance as [...] can avoid rectal irritation. Nasal spray- use twi ce daily, one spray per nostril twice daily, [...] nasal steroid allergy spray. . Hypertension - wel l controlled - continue with current medications, continue [...] anxiety and memory loss. Discussed with Dr. Aaliyah pringle - He needs to continue with miralax [...] for discomfort. Call for any concerns. . Abdominal symptoms with elevated liver enzymes- [...] days of the lactose free diet. . Abdominal pain - n ausea - Pt to have IV fluids at hospital . Nocturia-defer daina atment to Dr. Quintero. Continue with proscar and [...] an ultrasound for today. . Allergies - recomm ended pt to use allergy medication as prescribed. [...] nasal steroid allergy spray. . Hypertension - wel l controlled - continue with current medications, continue with no added salt diet. Pt has been encouraged to exercise daily. The pt has been advised to call the office if there are any acute concerns about change in blood pressure readings at home. Blood pressure check today in the office-improving. on the Requip - decr ease the dose to one pill nightly x [...] medication. . Hypertension - well controlled - jamia nue with current medications, continue with no added [...] TO TWICE DAILY . Abdominal pain-patient reports worseni ng symptoms-schedule CT abdomen/pelvis to evaluate for acute abnormality Low sodium-increase gatorade to twice HTN-well controlled-no change in treatment decrease Protonix (p antoprazole) to ONE pill ONE time daily. . Hypertension - well controlled - jamia nue with current medications, continue with no added [...] changes. Continue with current plan of treatment. INCREASE GATORADE TO TWICE DAILY . Abdominal pain-patient reports worseni ng symptoms-schedule CT abdomen/pelvis to evaluate for acute abnormality Low sodium-increase gatorade to twice HTN-well controlled-no change in treatment Start on Reglan at a 1/2 tablet [...] to regular foods. . Constipation and Suspected Gastropares is - Start on Reglan at a 1/2 [...] your diet back to regular foods. . Lhzae-wqnaercgb-ck spect laryngeal reflux-RX for protonix (patient is on plavix) and follow up in 1 month. Call if symptoms do not improve or if any worse Allergies-improved on flonase-continue as directed and call if symptoms return. use icy hot on your neck take aleve one pill twice daily x 3 days then one pill daily in the afternoon x 12 more days do the neck stretches twice daily x 1 week then at least one time a day x 1 week then as needed if your neck starts to get stiff or painful again . Hypertension - well controlled - jamia nue with current medications, continue with no added salt diet. Pt has been encouraged to exercise daily. The pt has been advised to call the office if there are any acute concerns about change in blood pressure readings at home. Neck pain - not well controlled - I have recommended the following: use icy hot on your neck take aleve one pill twice daily x 3 days then one pill daily in the afternoon x 12 more days do the neck stretches twice daily x 1 week then at least one time a day x 1 week then as needed if your neck starts to get stiff or painful again. . Chronic Depression and anxiety-improved over the past several weeks- the pt has symptoms of chronic anxiety and depression that have been fairly well controlled since the last office visit. The pt has expected periods of exacerbation with abatement of the symptoms with change in situational exposure. No change in current medications. INSTRUCTED PATIENT THAT HE SHOULD NOT BE DRIVING TO [place] Pt is to try 1/2 pil l of mobic (meloxicam) daily, if no increase [...] then trial off of the bentyl. . Bronchitis - acute but improving - case of bronchitis - Pt has been given antibiotics, breathing treatments as appropriate, and pt has been instructed to call if symptoms are not improved, or if symptoms acutely worsen. . Hypertension - wel l controlled - continue with current medications, continue [...] treatment per Dr. Merlos. . Hypertension - wel l controlled - continue with current medications, continue [...] treatment per Dr. Merlos. . Hypertension - wel l controlled - continue with current medications, continue [...] symptoms are not improving. Anxiety -has improved. get Aspercreme from [facility] [employer] for your upper neck/upper back. lactaid pills - take before you drink milk or eat cheese or ice cream or yogurt use gas-ex one pill three times daily . Neck and upper back pain and gait unst eadiness - referral to [facility] for upper and low back pain and left arm pain and have gait eval. get Aspercreme from [facility] for your upper neck/upper back. Abdominal upset/cramping - lactaid pills - take before you drink milk or eat cheese or ice cream or yogurt use gas-ex one pill three times daily Chronic anxiety - stable - continue with current management. stop the multivitami n stop the calcium and vitamin d combo pill stop the vitamin d pill stop the dicyclomine(you take this three times daily) stop ranitidine in the morning move the sulfa/trimethoprim - 1/2 pill to morning I want you to eat 1/2 a sandwich with your ensure at night before bed . Hypertension - well controlled - jamia nue with current medications, continue with no added salt diet. Pt has been encouraged to exercise daily. The pt has been advised to call the office if there are any acute concerns about change in blood pressure readings at home. Chronic Depression and anxiety - discussed with pt and his - we will continue with current antidepressant -monitor symptoms. Cough - post-nasal drainage - supportive care. Abdominal pain, chronic GI upset - we will decrease pill burden by stopping his multivitamin, calcium, vitamin d, ranitidine, and dicyclomine as it does not seem to be helping his symptoms. He is reporting peace officer pain - i suspect that some of this is due to his eating early at night then taking at least 10 pills at bedtime without any food in his stomach, then excessive acid production with the pill burden causing him to wake up with pain in the peace officer hours. I have recommended that he is to eat 1/2 a sandwich with his ensure at bedtime. . Hypertension - wel l controlled - continue with current medications, continue [...] situational exposure. No change in current medications. Appointment in [address] [place] [id number] Carlos[address] Recommend Lactobacillus 1 orally twice daily for the next 5 days then stop. If you are having cramping and bloating, take the bentyl as prescribed by Dr. Quintero. Increase your fluid intake during the day. Recommend gatorade 8oz daily at well for your decreased sodium level. . Nocturia-defer treatment to Dr. Quintero. Continue with proscar and flomax. Return to follow up with Dr. Quintero on Tuesday as scheduled. Call if unable to void, fever, other concerns, etc. Abdominal bloating, gas-recommend lactobacillus 1 po twice daily while on antibiotics. Diarrhea-resolved per patient report. Finish antibiotics for full course. for now - keep on e Miralax - use the miralax daily - [...] blood pressure readings at home. decrease CELEXA (gen ernie name is citalopram) - take 1/2 pill [...] change in blood pressure readings at home. pt has been advised to use THE FEXOFENADINE 180MG DAILY PT NEEDS TO USE SALINE NASAL SPRAY AND USE IT TWICE DAILY - IN THE MORNING AND BEFORE BED PT TO USE CORCIDIN HBP ONE PILL TWICE DAILY X 10 DAYS THEN STOP. . Allergies - chronic - recommended pt t o use allergy medication as prescribed. Pt has [...] increase in protein and portion size. . Hypertension - wel l controlled - continue with current medications, continue [...] office if the symptoms are not improving. restart ranitidine, continue with protonix. - pt was told to stop this medication by cardiology - however with his hx of multiple ER visits and trips to this office as well as his GI specialist- I would advised AGAINST stopping these medications. Dementia - progressive - at this time he is to continue with namenda - and we will keep him off of aricept due to his GI issues while on this medication. . Hydrocele and vari cocele- Recommend wearing boxer briefs instead of regular [...] with his son - Kenji Dash in [place]. Upon our conversation [id number]-[id number], Kenji vocalized concerns for his Dad's memory. He stated that he has noticed his father not being as quick in his cognitive functioning, he has noticed some concerns with driving as well. He states that he will discuss these concerns with his parents and other siblings. stop losartan - [facility] k blood pressure and heart rate twice daily x 1 week - bring by the office for review - if elevated - we will increase the lisinopril to 40mg daily. . Hypertension - well controlled - jamia nue with current medications except for stopping losartan, continue with no added salt diet. Pt has been encouraged to exercise daily. The pt has been advised to call the office if there are any acute concerns about change in blood pressure readings at home. Hyponatremia - decrease dose of sodium at lunch as it seems to be making Dr. Dash nauseated. Trulance 3mg daily biotene dry mouth spray -it is over the counter . Qbjbbhaykueb-tplltbw-mkiaewb trulance 3mg daily Dry mouth-biotene mouth spray . Constipation - co ntinue with Miralax - monitor symptoms - - [...] the glyburide as prescribed through the ER. sour candies - like kendrick jolly ranchers or grape jolly ranchers. the other options would be sour lemon drops biotene dry mouth spray -it is over the counter . Hypertension - well controlled - jamia nue with current medications, continue with no added salt diet. Pt has been encouraged to exercise daily. The pt has been advised to call the office if there are any acute concerns about change in blood pressure readings at home. Dry mouth - uncontrolled symptoms - discussed with pt - needs to try the following: xylitol, Act lozenges or sour candies - like kendrick jolly ranchers or grape jolly ranchers. the other options would be sour lemon drops biotene dry mouth spray -it is over the counter Pt has also been advised that we will send a refill for magic mouthwash to the pharmacy. - Constipation - continue with trulance, current higher fober diet, and monitor symptoms of GI upset. if you are still segundo ing protonix ( pantoprazole is generic name) - [...] stop the medication. if you are still segundo ing protonix ( pantoprazole is generic name) - [...] rigidity of movement - stop the medication. . Hypertension - wel l controlled - continue with current medications, continue with no added salt diet. Pt has been encouraged to exercise daily. The pt has been advised to call the office if there are any acute concerns about change in blood pressure readings at home. . Ethmoid sinusitis - check sinus xray - if positive will call out rx for antibiotic nasal spray . Record blood press ure and heart rate at home and drop the readings by the office in two weeks. No change in medications today. Laceration - removed suture today - pt to call if any complications arise. stop the Cetirizine as this may be augmenting your dry mouth. if stopping the cetirizine does not help, we need to consider a trial of holding the VESICARE to see if holding this medication for a few weeks makes a difference in your mouth discomfort. . Hypertension - I talked to Dr. Merlos and he had his staff call Dr. Dash for an appt to discuss his medications and symptoms. Dry mouth, Oral pain - stop the Cetirizine as this may be augmenting your dry mouth. if stopping the cetirizine does not help, we need to consider a trial of holding the VESICARE to see if holding this medication for a few weeks makes a difference in your mouth discomfort. ESCITALOPRAM (LEXAPR O) 5MG DAILY AT BEDTIME-THIS IS THE NEW [...] in blood pressure readings at home. Urinary smjgwdjyy-EAQ-udfkuh flomax to bedtime Dizziness-stop hydrocodone and ativan . Hypertension - we ll controlled - continue with current medications, continue [...] 50mg daily. . Hypertension - well controlled -contin ue with no added salt diet. Pt has [...] this with Dr. Merlos. . Hypertension - wel l controlled - continue with current medications, continue [...] with use of mobic at low doses. INCREASE ARICEPT (DO NEPEZIL) TO 5MG TAKEN TWICE A DAY. DECREASE LOSARTAN TO 25MG - TAKE 1/2 OF A TABLET OF THE 50MG PILL DAILY CHECK BLOOD PRESSURE AT HOME AND BRING BY THE OFFICE ON TUESDAY MORNING HOLD THE SIMVASTATIN X 3 WEEKS . Hypertension - too well controlled - d ecrease losartan to 25mg daily. DECREASE LOSARTAN TO 25MG - TAKE 1/2 OF A TABLET OF THE 50MG PILL DAILY CHECK BLOOD PRESSURE AT HOME AND BRING BY THE OFFICE ON TUESDAY MORNING Dementia with anxiety - INCREASE ARICEPT (DONEPEZIL) TO 5MG TAKEN TWICE A DAY. Fatigue/Malaise - HOLD THE SIMVASTATIN X 3 WEEKS . Hypertension - wel l controlled - continue with current medications, continue [...] unit did not include a medication list. . Hypertension - we ll controlled - continue with current medications, continue [...] weeks, then use as needed. INCREASE YOUR MELOXI CAM (MOBIC) TO 1/2 PILL TWICE DAILY X 5 DAYS CALL IF YOUR ELBOWS SWELLS AGAIN OR YOU DEVELOP PAIN OR OTHER CONCERNS . Bursitis-right elbow-drained today in the office-increase anti inflammatories for the next 5 days as directed-call if symptoms do not resolve, swelling returns or new symptoms develop-patient verbalized understanding of plan. . Hypertension - wel l controlled - continue with current medications, continue [...] MIKAELA if symptoms of irritable colon return. PT HAS BEEN INSTRUCT ED TO INCREASE HIS LISINOPRIL TO 20MG DAILY [...]
--- OUTSIDE RECORDS SUMMARY | 2019-07-16 07:08 | XMS REPORT | CCD ---
Author Author Kenneth Carlos Organization Ale Carlos MD, [facility] Address [address] [place] [address] Phone Care Team Providers Care Corporate Securities Research Analyst Name Role Phone Ale Carlos PP Unavailable CCM Unavailable Summary Purpose Interface Exchange Insurance Providers Payer name Policy type / Coverage type Covered alliance party ID Effective Begin Date Effective End Date WPS Medicare Part B Medicare Part B [id number] Unknown Unknown [facility] icare Part B [id number] Unknown Unk nown Family history Runs in the family Diagnosis Age At Onset No Family Disease Entered N/A Mother Diagnosis Age At Onset No Family Disease Entered N/A Father Diagnosis Age At Onset Heart disease Unknown Social History Social History Element Codes Description Effective Dates Alcohol history SNOMED CT: 046839673 Never drinks alcohol Quit in 200401/16/2019 Number of children Unknown 3 ([place], [place], [place]) 10/14/19 18 Living arrangements Unknown House 01/11/2011 Number of adults in household Unknown 2 01/11/2011 Education level Unknown Post-Graduate PHD in chemistry 01/11/2011 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 Unknown Has never used illegal drugs 011 Allergies, Adverse Reactions, Alerts Substance Reaction Codes Entered Date Inactivated Date Status * NO KNOWN FOOD NAYE RGIES Unknown 04/19/2011 No Inactive Date Active Toradol RxNorm: 35396 03/05/2011 No Inactive Date Active Past Medical History Illness Codes Condition Status Onset Date Resolved Date Encounter for genera l adult medical examination [...] ICD-9: 527.7 ICD-10: R68.2 Active 01/19/2018 Unknown Encounter for immuni zation ICD-9: V04.81 ICD-10: Z23 Active 02/08/2018 Unknown Essential (primary) hypertension ICD-9: 401.9 ICD-10: [...] Effectiv e Dates Condition Status Encounter for genera l adult medical examination [...] unspecified ICD-9: 527.7 ICD-10: R68.2 01/19/2018 Active Encounter for immuni zation ICD-9: V04.81 ICD-10: Z23 02/08/2018 Active Essential (primary) hypertension ICD-9: 401.9 ICD-10: [...] Fill Instructions Zantac 150 mg tablet RxNorm: 302074 Tablet(s) 1 TABLET(S) PO QAM 01/16/2019 No Stop Date Active clopidogrel 75 mg ta blet RxNorm: 219365 TAKE 1 TABLET BY MOUT H EVERY DAY 12/12/2018 06/09/2019 Ac tive lisinopril 20 mg tablet RxNorm: 492150 TAKE 1 TABLET DAILY 11/14/2018 05/12/2019 Active mirtazapine 15 mg ta blet RxNorm: 250654 TAKE ONE TABLET BY MO UTH EVERY DAY 10/25/2018 10/19/2019 Ac tive Namenda 10 mg tablet RxNorm: 577775 Tablet(s) TAKE 1 TABLET BY MOUTH TWICE D AILY. 08/18/2018 No Stop Date Active clopidogrel 75 mg ta blet RxNorm: 594320 TAKE 1 TABLET BY MOUT H EVERY DAY 08/14/2018 12/11/2018 In active amlodipine 10 mg tablet RxNorm: 736875 TAKE 1 TABLET BY MOUTH EVERY DAY 07/14/2018 07/23/2018 In active clopidogrel 75 mg ta blet RxNorm: 196303 TAKE 1 TABLET BY MOUT H EVERY DAY 06/23/2018 12/19/2018 In active Zantac 150 mg tablet RxNorm: 583392 1 TABLET(S) PO QAM 06/12/2018 01/07/2019 Inactive lisinopril 20 mg tablet RxNorm: 222519 TAKE 1 TABLET DAILY 06/05/2018 07/23/2018 Inactive triamterene 37.5 mg- hydrochlorothiazide 25 mg tablet RxNorm: 278052 1 Tablet(s) PO daily 05/18/2018 12/13/2018 Inactive cetirizine 10 mg tablet RxNorm: 1735327 TABLET(S) 1 TABLET(S) PO DAILY TO TAKE I NSTEAD OF THE CLARITIN 03/13/2018 02/05/2019 Active amlodipine 10 mg tablet RxNorm: 276936 TAKE 1 TABLET BY MOUTH EVERY DAY 03/09/2018 07/23/2018 In active fluticasone 50 mcg/a ctuation nasal spray,suspension RxNorm: 6198148 1 [place] NASAL BID 02/08/2018 02/07/2018 Inactive fluticasone 50 mcg/a ctuation nasal spray,suspension RxNorm: 0398824 1 [place] NASAL BID 02/08/2018 01/15/2019 Inactive Trulance 3 mg tablet RxNorm: 6079965 1 Tablet(s) PO QAM 01/19/2018 08/16/2018 Inactive cefdinir 300 mg capsule RxNorm: 368854 1 Capsule(s) PO BID 12/28/2017 01/03/2018 Inactive cefdinir 300 mg capsule RxNorm: 680385 1 Capsule(s) PO BID 12/28/2017 12/27/2017 Inactive clopidogrel 75 mg ta blet RxNorm: 832951 TAKE 1 TABLET BY MOUT H EVERY DAY 12/26/2017 06/22/2018 In active Namenda 10 mg tablet RxNorm: 199629 Tablet(s) TAKE 1 TABLET BY MOUTH TWICE D AILY. 12/15/2017 08/17/2018 Inactive Robinul 1 mg tablet RxNorm: 340477 1/2 Tablet(s) PO AC & HS 12/12/2017 12/14/2017 Inactive Robinul 1 mg tablet RxNorm: 464288 1/2 Tablet(s) PO AC & HS 12/12/2017 12/11/2017 Inactive donepezil 10 mg tablet RxNorm: 114377 1 TABLET(S) PO DAILY TAKE 1 TABLET BY MO UTH ONCE DAILY 12/08/2017 12/11/2017 Inactive Patient requests 90 days supply lisinopril 20 mg tablet RxNorm: 215853 TAKE 1 TABLET DAILY 12/05/2017 01/11/2018 Inactive Cymbalta 30 mg capsu le,delayed release RxNorm: 392947 1 Capsule(s) PO daily 12/05/2017 12/04/2017 In active Cymbalta 30 mg capsu le,delayed release RxNorm: 357948 1 Capsule(s) PO daily 12/05/2017 12/05/2017 In active Trulance 3 mg tablet RxNorm: 5276975 1 Tablet(s) PO daily 11/14/2017 12/13/2017 Inactive Linzess 145 mcg capsule RxNorm: 3063699 1 Capsule(s) PO daily 10/28/2017 12/14/2017 Inactive Zantac 150 mg tablet RxNorm: 276301 1 Tablet(s) PO QAM 10/13/2017 01/04/2018 Inactive mirtazapine 15 mg ta blet RxNorm: 634496 TAKE ONE TABLET BY MO UTH EVERY DAY 09/29/2017 09/23/2018 In active Mobic 15 mg tablet RxNorm: 545860 1/2 TABLET(S) DAILY 09/26/2017 12/19/2017 Inactive lisinopril 20 mg tablet RxNorm: 648950 1/2 Tablet(s) daily 09/13/2017 01/12/2018 Inactive amlodipine 10 mg tablet RxNorm: 183365 TAKE 1 TABLET BY MOUTH EVERY DAY 09/09/2017 08/07/2018 In active Reglan 5 mg tablet RxNorm: 509895 1/2 Tablet(s) PO TID may increase up to a full pill three times daily as needed for poor GI motility 07/20/2017 09/17/2017 Inactive Protonix 40 mg table t,delayed release RxNorm: 882196 1 Tablet(s) PO daily 07/04/2017 01/15/2019 In active clopidogrel 75 mg ta blet RxNorm: 060388 TAKE 1 TABLET BY MOUT H EVERY DAY 06/20/2017 12/16/2017 In active cetirizine 10 mg tablet RxNorm: 5345412 TABLET(S) 1 TABLET(S) PO DAILY TO TAKE I NSTEAD OF THE CLARITIN 06/06/2017 03/12/2018 Inactive lisinopril 20 mg tablet RxNorm: 519861 TAKE 1 TABLET DAILY 05/30/2017 09/12/2017 Inactive Mobic 15 mg tablet RxNorm: 879904 1/2 TABLET(S) DAILY 03/21/2017 09/16/2017 Inactive donepezil 10 mg tablet RxNorm: 952607 1 Tablet(s) PO daily TAKE 1 TABLET BY MO [facility] ONCE DAILY 02/28/2017 11/24/2017 Inactive Patient requests 90 days supply Requip 0.25 mg tablet RxNorm: 391611 1 TABLET(S) PO BID 01/24/2017 01/04/2018 Inactive Patient requests 90 days supply clopidogrel 75 mg ta blet RxNorm: 414758 TAKE 1 TABLET BY MOUT H EVERY DAY 12/23/2016 06/19/2017 In active lisinopril 20 mg tablet RxNorm: 317305 TAKE 1 TABLET DAILY 11/26/2016 05/24/2017 Inactive Kenalog 40 mg/mL hugo pension for injection RxNorm: 2925200 Milliliter(s) Inj 11/25/2016 11/25/2016 In active cefdinir 300 mg capsule RxNorm: 400757 1 Capsule(s) PO BID 11/23/2016 11/27/2016 Inactive cefdinir 300 mg capsule RxNorm: 018685 1 Capsule(s) PO BID 11/23/2016 11/22/2016 Inactive nystatin 100,000 uni t/mL oral suspension RxNorm: 074788 5 Milliliter(s) PO QI D 11/18/2016 11/27/2016 In active azithromycin 250 mg tablet RxNorm: 760156 1 Tablet(s) PO UD 2 p ills on day #1 then one pill daily x 4 more days 11/18/2016 11/22/2016 Inactive Mobic 15 mg tablet RxNorm: 301637 1/2 TABLET(S) DAILY 10/28/2016 03/20/2017 Inactive citalopram 10 mg tablet RxNorm: 424475 TAKE 1 TABLET BY MOUTH EVERY DAY 10/07/2016 03/05/2017 In active Patient requests 90 days supply mirtazapine 15 mg ta blet RxNorm: 953847 TAKE ONE TABLET BY MO [place] EVERY DAY 10/06/2016 09/28/2017 In active mirtazapine 15 mg ta blet RxNorm: 195439 TAKE ONE TABLET BY MO UTH EVERY DAY 10/05/2016 10/05/2016 In active Patient requests 90 days supply amlodipine 10 mg tablet RxNorm: 029962 TAKE 1 TABLET BY MOUTH EVERY DAY 09/14/2016 01/24/2017 In active clopidogrel 75 mg ta blet RxNorm: 060162 TAKE 1 TABLET BY MOUT H EVERY DAY 06/28/2016 12/22/2016 In active lisinopril 20 mg tablet RxNorm: 358279 TAKE 1 TABLET DAILY 05/31/2016 11/25/2016 Inactive donepezil 10 mg tablet RxNorm: 693018 TAKE 1 TABLET BY MOUTH ONCE DAILY 05/11/2016 11/06/2016 In active donepezil 10 mg tablet RxNorm: 454006 TAKE 1 TABLET BY MOUTH ONCE DAILY 04/26/2016 02/28/2017 In active Mobic 15 mg tablet RxNorm: 930349 1/2 Tablet(s) daily 04/19/2016 10/15/2016 Inactive citalopram 10 mg tablet RxNorm: 547305 TAKE 1 TABLET BY MOUTH EVERY DAY 04/06/2016 04/25/2016 In active cetirizine 10 mg tablet RxNorm: 0984346 Tablet(s) 1 TABLET(S) PO DAILY TO TAKE I NSTEAD OF THE CLARITIN 03/30/2016 02/22/2017 Inactive amlodipine 10 mg tablet RxNorm: 478703 TAKE 1 TABLET BY MOUTH EVERY DAY 03/08/2016 01/24/2017 In active amlodipine 10 mg tablet RxNorm: 256557 1 Tablet(s) PO daily TAKE 1 TABLET BY MO UTH ONCE DAILY 03/03/2016 03/07/2016 Inactive Requip 0.25 mg tablet RxNorm: 277885 1 Tablet(s) PO BID 03/03/2016 09/13/2016 Inactive Mobic 15 mg tablet RxNorm: 751569 1 Tablet(s) daily not refilled on a 02/23/2016 04/18/2016 In active cetirizine 10 mg tablet RxNorm: 9869991 1 TABLET(S) PO DAILY TO TAKE INSTEAD OF THE CLARITIN 02/19/2016 03/19/2016 Inactive lisinopril 20 mg tablet RxNorm: 589205 TAKE 1 TABLET DAILY 02/18/2016 05/17/2016 Inactive Namenda 10 mg tablet RxNorm: 381299 Tablet(s) TAKE 1 TABLET BY MOUTH TWICE D AILY. 02/17/2016 12/14/2017 Inactive lisinopril 20 mg tablet RxNorm: 710866 TAKE 1 TABLET DAILY 01/23/2016 01/24/2017 Inactive cetirizine 10 mg tablet RxNorm: 5029052 1 Tablet(s) PO daily to take instead of the claritin 01/21/2016 02/18/2016 Inactive amlodipine 10 mg tablet RxNorm: 500609 1 Tablet(s) PO daily TAKE 1 TABLET BY MO UTH ONCE DAILY 12/02/2015 03/02/2016 Inactive clopidogrel 75 mg ta blet RxNorm: 651695 TAKE 1 TABLET BY MOUT H EVERY DAY 11/25/2015 05/22/2016 In active Mobic 15 mg tablet RxNorm: 792255 TAKE(1/2) TABLET DAILY. 11/17/2015 02/22/2016 Inactive lisinopril 20 mg tablet RxNorm: 574109 TAKE 1 TABLET DAILY 11/17/2015 01/15/2016 Inactive Mobic 15 mg tablet RxNorm: 549458 1/2 Tablet(s) PO daily TAKE (1/2) TABLET DAILY. 11/12/2015 11/16/2015 Inactive citalopram 10 mg tablet RxNorm: 264240 TAKE 1 TABLET BY MOUTH EVERY DAY 10/27/2015 04/05/2016 In active Requip 0.25 mg tablet RxNorm: 005441 1 Tablet(s) PO BID 10/15/2015 02/11/2016 Inactive Requip 0.25 mg tablet RxNorm: 026754 1 Tablet(s) PO BID 10/15/2015 10/14/2015 Inactive mirtazapine 15 mg ta blet RxNorm: 621890 1 Tablet(s) PO daily 09/08/2015 10/01/2016 Inactive donepezil 10 mg tablet RxNorm: 063127 TAKE 1 TABLET DAILY 09/01/2015 04/25/2016 Inactive amlodipine 10 mg tablet RxNorm: 676372 1 Tablet(s) PO daily TAKE 1 TABLET BY MO UTH ONCE DAILY 08/18/2015 12/01/2015 Inactive clopidogrel 75 mg ta blet RxNorm: 733396 1 Tablet(s) PO daily TAKE 1 TABLET DAILY 05/20/2015 11/24/2015 In active Mobic 15 mg tablet RxNorm: 438652 Tablet(s) TAKE (1/2) TABLET DAILY. 04/23/2015 10/19/2015 In active lisinopril 20 mg tablet RxNorm: 172014 TAKE 1 TABLET DAILY 04/22/2015 11/16/2015 Inactive Mobic 15 mg tablet RxNorm: 824011 TAKE (1/2) TABLET DAILY. 04/22/2015 04/22/2015 Inactive sulfamethoxazole 400 mg-trimethoprim 80 mg tablet RxNorm: 596136 1/2 Tablet(s) PO nancy y 03/11/2015 04/09/2015 Inactive Vesicare 5 mg tablet RxNorm: 127402 1 Tablet(s) PO 03/11/2015 05/09/2015 Inactive Protonix 40 mg table t,delayed release RxNorm: 637934 1 Tablet(s) PO BID 03/05/2015 09/30/2015 In active ok to change from [address] Archana rivera clopidogrel 75 mg ta blet RxNorm: 982796 1 Tablet(s) PO daily TAKE 1 TABLET DAILY 02/20/2015 05/19/2015 In active Namenda 10 mg tablet RxNorm: 358785 Tablet(s) TAKE 1 TABLET BY MOUTH TWICE D AILY. 01/22/2015 02/16/2016 Inactive amlodipine 10 mg tablet RxNorm: 572018 TAKE 1 TABLET BY MOUTH ONCE DAILY 01/14/2015 08/17/2015 In active donepezil 10 mg tablet RxNorm: 122864 TAKE 1 TABLET DAILY 01/06/2015 08/31/2015 Inactive Levsin 0.125 mg tablet RxNorm: 5555458 1 Tablet(s) PO QID as needed FOR ABD REJI N 11/05/2014 12/03/2014 In active Mobic 15 mg tablet RxNorm: 480054 1/2 Tablet(s) daily TAKE (1/2) TABLET DA MOIZ. 10/01/2014 04/21/2015 Inactive ciprofloxacin 500 mg tablet RxNorm: 411127 1 Tablet(s) PO BID 09/27/2014 10/01/2014 Inactive Flagyl 500 mg tablet RxNorm: 305957 1 Tablet(s) PO TID 09/27/2014 10/03/2014 Inactive take probiotic BID donepezil 10 mg tablet RxNorm: 653207 1/2 Tablet(s) PO BID 09/24/2014 01/05/2015 Inactive lisinopril 20 mg tablet RxNorm: 692981 TAKE 1 TABLET DAILY 09/05/2014 04/21/2015 Inactive amlodipine 10 mg tablet RxNorm: 286355 1 Tablet(s) PO daily 09/02/2014 12/30/2014 Inactive mirtazapine 15 mg ta blet RxNorm: 008572 1 Tablet(s) PO daily 08/28/2014 09/07/2015 Inactive donepezil 10 mg tablet RxNorm: 091933 1 Tablet(s) PO daily 08/28/2014 09/23/2014 Inactive citalopram 10 mg tablet RxNorm: 261482 1 Tablet(s) PO daily 08/28/2014 03/25/2015 Inactive citalopram 10 mg tablet RxNorm: 901764 1 Tablet(s) PO daily 08/07/2014 08/27/2014 Inactive citalopram 10 mg tablet RxNorm: 069080 1 Tablet(s) PO daily 08/07/2014 08/06/2014 Inactive Flagyl 500 mg tablet RxNorm: 065274 1 Tablet(s) PO TID 08/02/2014 08/01/2014 Inactive take probiotic BID Flagyl 500 mg tablet RxNorm: 731307 1 Tablet(s) PO TID 08/02/2014 08/08/2014 Inactive take probiotic BID tamsulosin ER 0.4 mg capsule,extended release 24 hr RxNorm: 557651 1 Capsule(s) PO QHS 06/06/2014 03/10/2015 Inactive TAKE AT BEDTIME escitalopram 5 mg ta blet RxNorm: 608401 1 Tablet(s) PO QPM 06/06/2014 08/06/2014 Inactive doxycycline hyclate 100 mg tablet RxNorm: 867928 1 Tablet(s) PO BID 05/31/2014 05/30/2014 Inactive doxycycline hyclate 100 mg tablet RxNorm: 808993 1 Tablet(s) PO BID 05/31/2014 06/06/2014 Inactive please deliver if not picked by 3pm Aricept 5 mg tablet RxNorm: 004745 1 Tablet(s) PO BID 05/29/2014 08/27/2014 Inactive losartan 50 mg tablet RxNorm: 544573 1/2 Tablet(s) PO daily 05/29/2014 12/28/2015 Inactive clopidogrel 75 mg ta blet RxNorm: 179594 1 Tablet(s) PO daily 05/27/2014 05/26/2014 Inactive Mobic 15 mg tablet RxNorm: 063272 TAKE (1/2) TABLET DAILY. 05/27/2014 09/30/2014 Inactive clopidogrel 75 mg ta blet RxNorm: 741736 TAKE 1 TABLET DAILY 05/27/2014 02/19/2015 Inactive Mobic 15 mg tablet RxNorm: 423034 1/2 Tablet(s) PO daily TAKE (1/2) TABLET DAILY. 05/27/2014 05/26/2014 Inactive prednisone 20 mg tablet RxNorm: 056307 1 Tablet(s) PO BID 05/21/2014 05/25/2014 Inactive albuterol sulfate 2. 5 mg/0.5 mL solution for nebulization RxNorm: 297713 1 inhale INH Q4H as needed 05/21/2014 09/01/2015 Inactive prednisone 20 mg tablet RxNorm: 113479 1 Tablet(s) PO BID 05/21/2014 05/20/2014 Inactive cefdinir 300 mg capsule RxNorm: 031593 1 Capsule(s) PO BID 05/20/2014 05/26/2014 Inactive Zithromax Z-Dequan 250 mg tablet RxNorm: 130400 1 Tablet(s) PO UD 05/20/2014 05/24/2014 Inactive zpack lorazepam 0.5 mg tablet RxNorm: 576442 1/2 to 1 Tablet(s) PO Q8 PRN as needed 04/30/2014 06/05/2014 In active Namenda 10 mg tablet RxNorm: 947603 TAKE 1 TABLET BY MOUTH TWICE DAILY. 04/15/2014 01/21/2015 In active Namenda 10 mg tablet RxNorm: 426298 1 Tablet(s) PO BID 04/15/2014 04/14/2014 Inactive losartan 50 mg tablet RxNorm: 990044 1 Tablet(s) PO daily 03/25/2014 05/28/2014 Inactive Protonix 40 mg table t,delayed release RxNorm: 504178 1 Tablet(s) PO QPM 03/21/2014 06/18/2014 In active ok to change from [address] Archana rivera fluticasone 50 mcg/a ctuation nasal spray,suspension RxNorm: 773138 1 [place] NASAL BID 03/04/2014 09/29/2014 Inactive Protonix 20 mg table t,delayed release RxNorm: 357412 1 Tablet(s) PO QPM 02/08/2014 03/20/2014 In active fluticasone 50 mcg/a ctuation nasal spray,suspension RxNorm: 857179 1 [place] NASAL BID 01/30/2014 03/03/2014 Inactive fluticasone 50 mcg/a ctuation nasal spray,suspension RxNorm: 563815 1 [place] NASAL BID 12/24/2013 01/29/2014 Inactive fluticasone 50 mcg/a ctuation nasal spray,suspension RxNorm: 992278 1 [place] NASAL BID 11/20/2013 12/23/2013 Inactive doxycycline hyclate 100 mg capsule RxNorm: 2496925 1 Capsule(s) PO BID 10/08/2013 10/17/2013 In active doxycycline hyclate 100 mg capsule RxNorm: 4916051 capsule oral 10/08/2013 10/29/2013 Inactive fluticasone 50 mcg/a ctuation nasal spray,suspension RxNorm: 017373 spray,suspension nasl 10/08/2013 11/19/2013 Inactive fluticasone 50 mcg/a ctuation nasal spray,suspension RxNorm: 015216 1 [place] NASAL BID Nasal spray- use twice daily, one spray per nostril twice daily, after 30 minutes, rinse out nose with saline spray. 10/08/2013 10/29/2013 Inactive mirtazapine 7.5 mg t ablet RxNorm: 706734 1/2 Tablet(s) PO daily 08/30/2013 08/27/2014 Inactive lorazepam 0.5 mg tablet RxNorm: 171864 1/2 Tablet(s) PO Q8 PRN 08/21/2013 04/29/2014 Inactive Aricept 5 mg tablet RxNorm: 470109 Tablet(s) PO TAKE 1 TABLET DAILY 08/21/2013 05/28/2014 In active Plavix 75 mg tablet RxNorm: 857755 Tablet(s) PO TAKE 1 TABLET DAILY 05/24/2013 12/04/2014 In active clopidogrel 75 mg ta blet RxNorm: 384976 tablet oral 05/24/2013 05/26/2014 Inactive Plavix 75 mg tablet RxNorm: 806428 1 Tablet(s) PO daily 05/23/2013 05/23/2013 Inactive meloxicam 15 mg tablet RxNorm: 318868 tablet oral 04/26/2013 03/25/2014 Inactive Mobic 15 mg tablet RxNorm: 651566 Tablet(s) PO TAKE (1/2) TABLET DAILY. 04/26/2013 05/26/2014 In active Mobic 15 mg tablet RxNorm: 638518 1/2 Tablet(s) PO daily 04/25/2013 04/25/2013 Inactive lisinopril 20 mg tablet RxNorm: 021275 1 Tablet(s) PO 04/04/2013 03/24/2014 Inactive finasteride 5 mg tablet RxNorm: 984342 tablet oral 03/22/2013 09/01/2015 Inactive lisinopril 10 mg tablet RxNorm: 342866 1 Tablet(s) PO daily 02/14/2013 04/03/2013 Inactive donepezil 5 mg tablet RxNorm: 319077 tablet oral 02/07/2013 12/24/2013 Inactive Influenza Virus Vacc ine 0.5 mL RxNorm: IM 02/06/2013 02/06/2013 Inactive Aricept 5 mg tablet RxNorm: 568080 1 Tablet(s) PO daily 02/06/2013 08/04/2013 Inactive tamsulosin ER 0.4 mg capsule,extended release 24 hr RxNorm: 098364 capsule,extended release 24hr oral 12/21/2012 06/05/2014 Inactive Plavix 75 mg tablet RxNorm: 189605 1 Tablet(s) PO daily 12/05/2012 05/03/2013 Inactive lorazepam 0.5 mg tablet RxNorm: 195802 1/2 Tablet(s) PO Q8 PRN 11/14/2012 08/20/2013 Inactive lisinopril 10 mg tablet RxNorm: 618327 1 Tablet(s) PO daily 08/08/2012 02/03/2013 Inactive Aricept 5 mg tablet RxNorm: 440963 1 Tablet(s) PO daily 08/08/2012 02/03/2013 Inactive Plavix 75 mg tablet RxNorm: 231660 1 Tablet(s) PO daily 07/04/2012 11/30/2012 Inactive Mobic 15 mg tablet RxNorm: 704145 1/2 Tablet(s) PO daily 03/20/2012 04/13/2013 Inactive Namenda 10 mg tablet RxNorm: 446355 1 Tablet(s) PO BID 02/22/2012 04/11/2014 Inactive lorazepam 0.5 mg tablet RxNorm: 908718 1/2 Tablet(s) PO Q8 PRN 02/02/2012 11/13/2012 Inactive lisinopril 10 mg tablet RxNorm: 775277 1 Tablet(s) PO daily 01/24/2012 07/21/2012 Inactive lisinopril 10 mg tablet RxNorm: 576846 1/2 Tablet(s) PO daily 12/20/2011 01/23/2012 Inactive Aricept 5 mg tablet RxNorm: 380863 1 Tablet(s) PO daily 07/14/2011 08/06/2012 Inactive Mobic 15 mg tablet RxNorm: 919000 1 Tablet(s) PO daily 07/14/2011 03/19/2012 Inactive Bentyl 10 mg Cap RxNorm: 343527 1 Capsule(s) PO daily one pill daily and every 6 hours if needed for bowel spasms. 06/23/2011 03/20/2012 Inactive amlodipine 5 mg Tab RxNorm: 970469 2 Tablet(s) PO daily 03/08/2011 12/08/2011 Inactive ZOSTAVAX 19,400 unit Sub-Q Soln RxNorm: 7199392 SQ 02/2502/25/2011 Inactive Pneumovax 23 25 mcg/ 0.5 mL Injection RxNorm: 945639 Milliliter(s) Inj 02/16/2011 02/16/2011 In active Influenza Virus Vacc ine 0.5 mL RxNorm: IM 02/09/2011 02/09/2011 Inactive Namenda 10 mg tablet RxNorm: 369497 1 Tablet(s) PO BID 02/01/2011 02/21/2012 Inactive dicyclomine 10 mg ca psule RxNorm: 490802 capsule oral 01/20/2011 10/29/2013 Inactive Namenda 5 mg tablet RxNorm: 183458 tablet oral 01/20/2011 12/24/2013 Inactive dicyclomine 20 mg ta blet RxNorm: 357783 tablet oral 01/15/2011 10/29/2013 Inactive Flagyl 500 mg Tab RxNorm: 214377 1 Tablet(s) PO TID 01/07/2011 01/06/2011 Inactive Cipro 500 mg Tab RxNorm: 015753 1 Tablet(s) PO BID 01/07/2011 06/23/2011 Inactive Cipro 500 mg Tab RxNorm: 399076 1 Tablet(s) PO BID 01/07/2011 01/06/2011 Inactive Flagyl 500 mg Tab RxNorm: 683552 1 Tablet(s) PO TID 01/07/2011 06/23/2011 Inactive metronidazole 500 mg tablet RxNorm: 443614 tablet oral 01/07/2011 12/24/2013 Inactive sulfamethoxazole 400 mg-trimethoprim 80 mg tablet RxNorm: 711695 tablet oral 12/24/2010 03/10/2015 In active mirtazapine 15 mg ta blet RxNorm: 225874 tablet oral 11/14/2010 12/24/2013 Inactive lisinopril 10 mg tablet RxNorm: 990898 tablet oral 11/14/2010 12/24/2013 Inactive doxycycline hyclate 100 mg tablet RxNorm: 792172 tablet oral 11/04/2010 12/24/2013 Inactive diphenoxylate-atropi ne 2.5 mg-0.025 mg tablet RxNorm: 4459522 tablet oral 11/03/2010 10/29/2013 In active ciprofloxacin 500 mg tablet RxNorm: 013844 tablet oral 11/01/2010 10/29/2013 Inactive Miralax 17 gram/dose oral powder RxNorm: 199437 17 Gram(s) PO daily No Start Date Active simvastatin 20 mg ta blet RxNorm: 688150 1 Tablet(s) PO daily No Start Date Active Vesicare 5 mg tablet RxNorm: 632371 1 Tablet(s) PO daily No Start Date Active bicalutamide 50 mg t ablet RxNorm: 329810 1 Tablet(s) PO daily No Start Date Active Aspirin Low Dose 81 mg tablet,delayed release RxNorm: 008357 1 Tablet(s) PO daily No Start Date Active sulfamethoxazole 500 mg Tab RxNorm: 227025 1/2 Tablet(s) PO daily No Start Date 12/24/2013 Inactive Plavix 75 mg Tab RxNorm: 524263 1 Tablet(s) PO daily No Start Date 01/26/2011 Inactive aspirin 81 mg Cap, D elayed Release RxNorm: 138701 1 Capsule(s) PO daily No Start Date 01/04/2018 Inactive Bentyl 10 mg capsule RxNorm: 071814 1 Capsule(s) PO QID as needed per dr. tylor pereira No Start Date 01/04/2018 Inactive famotidine 20 mg tablet RxNorm: 172161 1 Tablet(s) PO BID prescribed in ER No Start Date 10/13/2017 Inactive hydrocodone 5 mg-alexey taminophen 325 mg tablet RxNorm: 401949 1 Tablet(s) PO Q6 as needed No Start Date 06/05/2014 Inactive Proscar 5 mg Tab RxNorm: 456104 1 Tablet(s) PO daily No Start Date 09/01/2015 Inactive Plavix 75 mg tablet RxNorm: 745077 1 Tablet(s) PO daily No Start Date 07/03/2012 Inactive albuterol sulfate 2. 5 mg/0.5 mL solution for nebulization RxNorm: 177138 1 inhale INH Q4H as needed No Start Date 05/20/2014 Inactive metoclopramide 5 mg tablet RxNorm: 949660 1 Tablet(s) PO AC & H S prescribed in ER No Start Date 01/04/2018 Inactive amlodipine 5 mg Tab RxNorm: 542757 1 Tablet(s) PO daily No Start Date 03/07/2011 Inactive ranitidine 150 mg ta blet RxNorm: 215786 1 Tablet(s) PO daily No Start Date 07/24/2018 Inactive Namenda 5 mg Tab RxNorm: 223281 1 Tablet(s) PO daily No Start Date 06/23/2011 Inactive Zyrtec 10 mg tablet RxNorm: 0116391 1 Tablet(s) PO daily No Start Date 01/04/2018 Inactive Allergy Relief (ceti rizine) oral RxNorm: 541912 oral No S tart Date 12/19/2016 Inactive alprazolam 0.25 mg t ablet RxNorm: 283013 1 Tablet(s) PO BID PRN No Start Date 01/15/2019 Inactive fluocinonide 0.05 % Ointment RxNorm: 175268 1 TOP BID PRN No Start Date 12/24/2013 Inactive amlodipine 5 mg tablet RxNorm: 243599 1 Tablet(s) PO daily No Start Date 09/01/2014 Inactive lisinopril Oral RxNorm: Oral No Start Date 12/08/2011 Inactive simvastatin 20 mg Tab RxNorm: 581548 1 Tablet(s) PO daily No Start Date 06/06/2014 Inactive Bentyl 20 mg Tab RxNorm: 673901 1 Tablet(s) PO Q6 PRN No Start Date 06/23/[address] Quintero Bentyl 10 mg Cap RxNorm: 319028 1 Capsule(s) PO BID No Start Date 06/22/2011 Inactive fluticasone 50 mcg/a ctuation nasal spray,suspension RxNorm: 2215452 1 [place] NASAL BID No Start Date 02/07/2018 Inactive Plavix 75 mg Tab RxNorm: 916560 1 Tablet(s) PO every other day No Start Date 08/24/2011 Inactive lorazepam 0.5 mg tablet RxNorm: 777861 1/2 Tablet(s) PO Q8 PRN No Start Date 02/01/2012 Inactive lisinopril 10 mg tablet RxNorm: 228187 1 Tablet(s) PO daily No Start Date 12/19/2011 Inactive Trulance 3 mg tablet RxNorm: 4211136 1 Tablet(s) PO QAM No Start Date 01/18/2018 Inactive Flomax 0.4 mg 24 hr Cap RxNorm: 574500 1 Capsule(s) PO daily No Start Date 05/28/2014 Inactive Phenergan 6.25 mg/5 mL syrup RxNorm: 129708 5-10 Milliliter(s) PO QID as needed No Start Date 08/16/2018 Inactive Aricept 5 mg Tab RxNorm: 951432 1 Tablet(s) PO daily No Start Date 07/13/2011 Inactive Vitamin D 1,000 unit Tab RxNorm: 722025 1 Tablet(s) PO daily No Start Date 01/04/2018 Inactive Levsin 0.125 mg tablet RxNorm: 2214204 1 Tablet(s) PO QID as needed FOR ABD REJI N No Start Date 11/04/2014 Inactive mirtazapine 7.5 mg t ablet RxNorm: 854526 1/2 Tablet(s) PO daily No Start Date 08/29/2013 Inactive Senior Vitamin Tab RxNorm: 1 Tablet(s) PO daily No Start Date 01/04/2018 Inactive Mobic 15 mg Tab RxNorm: 075426 1 Tablet(s) PO daily No Start Date 07/13/2011 Inactive Medication Administered Medication Codes Instruc tions Start Date Status Kenalog 40 mg/mL suspension for injection RxNorm: 4021719 Milliliter 11/25/2016 No longer Active Influenza Virus Vaccine 0.5 mL RxNorm: 02/06/2013 No longer Active ZOSTAVAX 19,400 unit Sub-Q Soln RxNo rm: 2626425 02/25/2011 No longer A ctive Pneumovax 23 25 mcg/0.5 mL Injection RxNorm: 611082 Milliliter 02/16/2011 No longer Active Influenza Virus [...] Condition Codes Effectiv e Dates Encounter for general adult medical exam ination [...] initial encounter ICD-10: S40.812A ICD-9: 913.0 05/18/2018 Encounter for immunization ICD-10: Z 23 ICD-9: V04.81 02/08/2018 Dry mouth, unspecified ICD-10: R68.2 ICD-9: 527.7 [...] Visit Reason For Visit Effective Dates Notes Annual Medicare Wellness Exam 01/16/2019 back pain [...] Ord15 CALCIUM 10.1 mg/dL 06/08/2018 Comp Metabolic Uas294 NA 143 mEq/L 04/10/2018 Comp Metabolic Qku697 K 3.8 mEq/L 04/10/2018 Comp Metabolic Mlu628 CL 105 mEq/L 04/10/2018 Comp Metabolic Kns084 CO2 30.0 mEq/L 04/10/2018 Comp Metabolic Wbz342 AN ION GAP 12 04/10/2018 Comp Metabolic Rwe005 GL UCOSE 95 mg/dL 04/10/2018 Comp Metabolic Pjf443 Cr eat 1.2 mg/dL 04/10/2018 Comp Metabolic Ibj260 eG FR 60 ml/min/1.73m2 04/10 Comp Metabolic Wgg549 BUN 22 mg/dL 04/10/2018 Comp Metabolic Ird685 B/ C Ratio 18.2 Ratio 04/10/2018 Comp Metabolic Hkb881 CA LCIUM 10.3 mg/dL 04/10/2018 Comp Metabolic Xfm079 AL K PHOS 113 U/L 04/10/2018 Comp Metabolic Duf083 T(SGOT) 30 U/L 04/10/2018 Comp Metabolic Zie662 AL T(SGPT) 19 U/L 04/10/2018 Comp Metabolic Nmt648 BI LI T 0.4 mg/dL 04/10/2018 Comp Metabolic Zmv968 AL BUMIN 4.2 g/dL 04/10/2018 Comp Metabolic Jpj573 TP RO 6.5 g/dL 04/10/2018 Comp Metabolic Ayc098 GL OB 2.3 g/dL 04/10/2018 Comp Metabolic Suy582 A/ G Ratio 1.8 Ratio 04/10/2018 Comp Metabolic Xmb166 Os mo 288 mOsmo 04/10/2018 Lipid Ord30 CHOL 133 mg/dL 04/10/2018 Lipid Ord30 HDL 49.0 mg/dl 04/10/2018 Lipid Ord30 TRIG 68 mg/dL 04/10/2018 Lipid Ord30 LDL 70 mg/dL 04/10/2018 Lipid Ord30 C/HDL 2.7 Ratio 04/10/2018 C RAP A SC 2081019 Strep A Negative 01/13/2018 Comp Metabolic Hte001 NA 134 mEq/L 10/07/2017 Comp Metabolic Nmd824 K 4.5 mEq/L 10/07/2017 Comp Metabolic Psu815 CL 99 mEq/L 10/07/2017 Comp Metabolic Zaz756 CO2 31.0 mEq/L 10/07/2017 Comp Metabolic Inf962 AN ION GAP 9 10/07/2017 Comp Metabolic Lbt634 GL UCOSE 82 mg/dL 10/07/2017 Comp Metabolic Wtc900 Cr eat 1.0 mg/dL 10/07/2017 Comp Metabolic Xeo761 eG FR 77 ml/min/1.73m2 10/07 Comp Metabolic Cjz505 BUN 16 mg/dL 10/07/2017 Comp Metabolic Lrs772 B/ C Ratio 16.3 Ratio 10/07/2017 Comp Metabolic Drd006 CA LCIUM 9.6 mg/dL 10/07/2017 Comp Metabolic Idd989 AL K PHOS 72 U/L 10/07/2017 Comp Metabolic Wqn581 T(SGOT) 21 U/L 10/07/2017 Comp Metabolic Ckr747 AL T(SGPT) 14 U/L 10/07/2017 Comp Metabolic Kqs622 BI LI T 0.4 mg/dL 10/07/2017 Comp Metabolic Diu560 AL BUMIN 4.0 g/dL 10/07/2017 Comp Metabolic Xut313 TP RO 5.7 g/dL 10/07/2017 Comp Metabolic Jye144 GL OB 1.7 g/dL 10/07/2017 Comp Metabolic Rwz591 A/ G Ratio 2.4 Ratio 10/07/2017 Comp Metabolic Lbh750 Os mo 269 mOsmo 10/07/2017 Lipid Ord30 CHOL 135 mg/dL 10/07/2017 Lipid Ord30 HDL 69.0 mg/dl 10/07/2017 Lipid Ord30 TRIG 52 mg/dL 10/07/2017 Lipid Ord30 LDL 56 mg/dL 10/07/2017 Lipid Ord30 C/HDL 2.0 Ratio 10/07/2017 %Hba1C Mdt946 % HbA1c 90482-9 5.5 % 09/12/2017 %Hba1C Ioi756 Gluc Ave 111 mg/dL 09/12/2017 B12 Oyr165 B12 816.00 pg/ml 09/10/2017 Test(s) Not Perfromed Test(s) Not Performed Test(s) Not Performed. See B elow: 09/09/2017 Test(s) Not Perfromed TEST NAME VIT D 09/09/2017 Test(s) Not Perfromed Rejection Reason NO PAYABLE DX 018 Test(s) Not Perfromed COMMENT PATIENT SAID HE WAS TAKING SUPPLEMENT 09/09/2017 Test(s) Not Perfromed Office Inspector Tello Almeida 018 Lipid Ord30 CHOL 134 mg/dL 04/11/2017 Lipid Ord30 HDL 63.0 mg/dl 04/11/2017 Lipid Ord30 TRIG 45 mg/dL 04/11/2017 Lipid Ord30 LDL 62 mg/dL 04/11/2017 Lipid Ord30 C/HDL 2.1 Ratio 04/11/2017 Tsh Ord6 hTSH II 2.07 uIU/mL 04/11/2017 Body Fluid Crystals Source RIGHT ELBOW 6 Body Fluid Crystals CRYSTALS, BODY FLUID 02/18/2016 Uric Acid Body Fluid 172582 URIC ACID-FLUID 4.3 mg/dL 02/18/2016 Metabolic Ord15 [...] Ord15 CALCIUM 9.1 mg/dL 02/05/2016 Comp Metabolic Bci790 NA 129 mEq/L 10/08/2015 Comp Metabolic Crh776 K 4.7 mEq/L 10/08/2015 Comp Metabolic Vtl389 CL 98 mEq/L 10/08/2015 Comp Metabolic Odp825 CO2 28.0 mEq/L 10/08/2015 Comp Metabolic Zcb767 AN ION GAP 8 10/08/2015 Comp Metabolic Rcw573 GL UCOSE 84 mg/dL 10/08/2015 Comp Metabolic Fnm184 Cr eat 1.3 mg/dL 10/08/2015 Comp Metabolic Rwe225 eG FR 56 ml/min/1.73m2 10/07 Comp Metabolic Urz714 BUN 23 mg/dL 10/08/2015 Comp Metabolic Qts037 B/ C Ratio 17.8 Ratio 10/08/2015 Comp Metabolic Phd003 CA LCIUM 9.3 mg/dL 10/08/2015 Comp Metabolic Qbh758 AL K PHOS 68 U/L 10/08/2015 Comp Metabolic Bts533 T(SGOT) 24 U/L 10/08/2015 Comp Metabolic Rsb715 AL T(SGPT) 15 U/L 10/08/2015 Comp Metabolic Rnn107 BI LI T 0.5 mg/dL 10/08/2015 Comp Metabolic Dos769 AL BUMIN 4.0 g/dL 10/08/2015 Comp Metabolic Lxw436 TP RO 5.9 g/dL 10/08/2015 Comp Metabolic Nby443 GL OB 1.9 g/dL 10/08/2015 Comp Metabolic Mtu806 A/ G Ratio 2.1 Ratio 10/08/2015 Comp Metabolic Tbk843 Os mo 262 mOsmo 10/08/2015 Lipid Ord30 [...] Ord30 C/HDL 2.3 Ratio 05/07/2015 Comp Metabolic Fzy177 NA 132 mEq/L 05/07/2015 Comp Metabolic Qyy889 K 4.4 mEq/L 05/07/2015 Comp Metabolic Tsk910 CL 97 mEq/L 05/07/2015 Comp Metabolic Hco484 CO2 30.0 mEq/L 05/07/2015 Comp Metabolic Tlr387 AN ION GAP 9 05/07/2015 Comp Metabolic Zva076 GL UCOSE 78 mg/dL 05/07/2015 Comp Metabolic Akr301 Cr eat 1.2 mg/dL 05/07/2015 Comp Metabolic Jsx773 eG FR 60 ml/min/1.73m2 05/07 Comp Metabolic Asl343 BUN 25 mg/dL 05/07/2015 Comp Metabolic Nmm529 B/ C Ratio 20.3 Ratio 05/07/2015 Comp Metabolic Wgf654 CA LCIUM 9.6 mg/dL 05/07/2015 Comp Metabolic Rqq020 AL K PHOS 70 U/L 05/07/2015 Comp Metabolic Olc885 T(SGOT) 27 U/L 05/07/2015 Comp Metabolic Jzn520 AL T(SGPT) 20 U/L 05/07/2015 Comp Metabolic Mbt636 BI LI T 0.4 mg/dL 05/07/2015 Comp Metabolic Xso243 AL BUMIN 4.0 g/dL 05/07/2015 Comp Metabolic Yvd799 TP RO 5.8 g/dL 05/07/2015 Comp Metabolic Kji614 GL OB 1.8 g/dL 05/07/2015 Comp Metabolic Uui555 A/ G Ratio 2.3 Ratio 05/07/2015 Comp Metabolic Ovc637 Os mo 268 mOsmo 05/07/2015 Cbc With [...] hTSH II 4.07 uIU/mL 05/07/2015 Comp Metabolic Rdb073 NA 134 mEq/L 12/10/2014 Comp Metabolic Uzv712 K 4.8 mEq/L 12/10/2014 Comp Metabolic Mqe334 CL 101 mEq/L 12/10/2014 Comp Metabolic Akx094 CO2 30.0 mEq/L 12/10/2014 Comp Metabolic Qob403 AN ION GAP 8 12/10/2014 Comp Metabolic Dry127 GL UCOSE 85 mg/dL 12/10/2014 Comp Metabolic Aaq963 Cr eat 1.2 mg/dL 12/10/2014 Comp Metabolic Ypc295 eG FR 65 ml/min/1.73m2 12/10 Comp Metabolic Rsu340 BUN 25 mg/dL 12/10/2014 Comp Metabolic Ksj344 B/ C Ratio 21.7 Ratio 12/10/2014 Comp Metabolic Ypa608 CA LCIUM 9.5 mg/dL 12/10/2014 Comp Metabolic Nlk209 AL K PHOS 76 U/L 12/10/2014 Comp Metabolic Tnb354 T(SGOT) 27 U/L 12/10/2014 Comp Metabolic Pzg974 AL T(SGPT) 18 U/L 12/10/2014 Comp Metabolic Wyt027 BI LI T 0.5 mg/dL 12/10/2014 Comp Metabolic Xny305 AL BUMIN 4.1 g/dL 12/10/2014 Comp Metabolic Vda181 TP RO 5.7 g/dL 12/10/2014 Comp Metabolic Xus669 GL OB 1.6 g/dL 12/10/2014 Comp Metabolic Qsq124 A/ G Ratio 2.6 Ratio 12/10/2014 Comp Metabolic Sng905 Os mo 272 mOsmo 12/10/2014 B12 Tms634 B12 1011.00 pg/ml 12/10/2014 Lipid Ord30 CHOL [...] Differential Ord2 RDW 14.3 % 12/10/2014 CBC 0998107 WBC 4.1 10e9/L 02/19/2013 CBC 6037226 RBC 4.39 10e12/L 02/19/2013 CBC 7560861 HGB 14.1 g/dL 02/19/2013 CBC 6145901 HCT DET 41.0 % 02/19/2013 CBC 3779903 MCV 93.4 fL 02/19/2013 CBC 2134234 MCH 32.1 pg 02/19/2013 CBC 5867250 MCHC 34.4 g/dL 02/19/2013 CBC 1367364 PLT 151 10e9/L 02/19/2013 CBC 7248461 MPV 11.8 fL 02/19/2013 CBC 0677419 YOVANNY % 63.2 % 02/19/2013 CBC 7514361 LY % 22.9 % 02/19/2013 CBC 2810673 MON % 11.5 % 02/19/2013 CBC 7948829 EOS % 2.2 % 02/19/2013 CBC 8762989 BASO % 0.2 % 02/19/2013 CBC 3484304 RDW 13.8 % 02/19/2013 CBC 7365333 ABS YOVANNY 2.59 10e9/L 02/19/2013 CBC 9538901 ABS LYMPH 0.94 10e9/L 02/19/2013 CBC 0463091 ABS MONO 0.47 10e9/L 02/19/2013 CBC 4443158 ABS EOS 0.09 10e9/L 02/19/2013 CBC 0899057 ABS BASO 0.01 10e9/L 02/19/2013 CBC 8616870 RDW-SD 46.0 fL 02/19/2013 TSH 0269655 TSH 2.094 uIU/ML 02/19/2013 FREE T4 6082665 FREE T4 1.18 NG/DL 02/19/2013 GFR CALC 6025247 GFR AA >60 ML/MIN 02/19/2013 GFR CALC 3341749 GFR NON -AA >60 ML/MIN 02/19/2013 CHEM 14 1702169 AST 30 U/L 02/19/2013 CHEM 14 8310444 ALT 19 IU/L 02/19/2013 CHEM 14 5904818 BUN 21 MG/DL 02/19/2013 CHEM 14 5287253 ALBUMIN 4.4 GM/DL 02/19/2013 CHEM 14 8023213 CHLORIDE 94 MMOL/L 02/19/2013 CHEM 14 1493548 BILI TOT 0.5 MG/DL 02/19/2013 CHEM 14 3005029 ALK PHOS 75 U/L 02/19/2013 CHEM 14 6684364 SODIUM 133 MMOL/L 02/19/2013 CHEM 14 1391173 CREATINI NE 1.07 MG/DL 02/19/2013 CHEM 14 7018610 CALCIUM 9.6 MG/DL 02/19/2013 CHEM 14 4067054 POTASSIUM 4.6 MMOL/L 02/19/2013 CHEM 14 0911787 PROT TOT 6.1 GM/DL 02/19/2013 CHEM 14 0138372 GLUCOSE 94 MG/DL 02/19/2013 CHEM 14 0425530 BICARB 31 MMOL/L 02/19/2013 CHEM 14 4289407 ANION GAP 8 MEQ/L 02/19/2013 UA 73253 Specific [place] 1.015 DateTime(Free Text in Aprima ) UA 69684 PH 6 DateTime(Free Text in Aprima ) UA 28152 GLUCOSE neg DateTime(Free Text in Aprima ) UA 01033 Protein neg DateTime(Free Text in Aprima ) UA 50769 Blood neg DateTime(Free Text in Aprima ) UA 05544 Bilirubin neg DateTime(Free Text in Aprima ) UA 76532 Ketones neg DateTime(Free Text in Aprima ) UA 33325 Urobilinogen neg DateTime(Free Text in Aprima ) UA 69002 Nitrite neg DateTime(Free Text in Apr ) UA 34758 Leukocytes neg DateTime(Free Text in ) Review [...] No mental status change 11/14/2017 Psychiatric anxiety 07/01/2018 Psychiatric disturbances of memory 11/14/2017 Constitutional recent [...] No alteration of consciousness 05/06/2015 Psychiatric anxiety /01/2015 Constitutional No recent illness 03/05/2015 Constitutional No [...] rate 05/18/2018 None Full Exam - General 1994 Cardiovascular auscultation of heart Overall: regular rate 05/18/2018 None Full Exam - General 1994 Cardiovascular auscultation of heart Overall: normal heart sounds 05/18/2018 None Full Exam - General 1994 Musculoskeletal spine, ribs and pelvis Overall: good posture 05/18/2018 None Full Exam - General 1994 [...] affect 01/19/2018 None Full Exam - General 1995 Ears/Nose/Throat oral cavity/pharynx/larynx Oral mucosa: dry 01/19/2018 [...] lips 11/14/2017 None Full Exam - General 1994 [...] normal 10/13/2017 None Full Exam - General 1995 Ears/Nose/Throat lips/teeth/gingiva Overall: benign lips 10/13/2017 None [...] affect 04/04/2013 None Full Exam - General 1995 Constitutional general appearance Overall: well developed 02/19/2013 [...] posture 02/19/2013 None Full Exam - General 1995 [...] 1995 Ears/Nose/Throat oral cavity/pharynx/larynx Overall: no masses 10/16/2012 [...] rate 06/19/2012 None Full Exam - General 1995 Cardiovascular [...] clear 03/20/2012 None Full Exam - General 1995 Ears/Nose/Throat [...] posture 01/24/2012 None Full Exam - General 1995 [...] - General Neurologic mental status Overall: alert 09/26/201 1 memory test performed today - SLUMS [...] None Full Exam - General 1995 Eyes conjunctiva/eyelids Overall: conjunctiva clear 01/15/2011 None [...] affect 01/06/2011 None Procedures Procedure Codes Date PPPS, SUBSEQ VISIT CPT- 4: G0439 01/16/2019 ADMIN INFLUENZA VIRU S VAC CPT-4: G0008 02/08/2018 FLU VACC PRSV FREE I NC ANTIG CPT-4: 55626 02/08/2018 URINALYSIS NONAUTO W /O SCOPE CPT-4: 37633 09/26/2017 ADMIN INFLUENZA VIRU S VAC CPT-4: G0008 01/25/2017 FLU VACC PRSV FREE I NC ANTIG CPT-4: 91708 01/25/2017 THER/PROPH/DIAG INJ SC/IM CPT-4: 80470 11/25/2016 TRIAMCINOLONE ACET I [place] NOS CPT-4: J3301 11/25/2016 DRAIN/INJECT JOINT/B URSA CPT-4: 20021 02/17/2016 IMMUNIZATION ADMIN CPT- 4: 15477 05/06/2015 PNEUMOCOCCAL VACC 13 TIFFANIE IM Formatting Model/CDA Sections, Assigned to/Celia Minaya CT: [id number] CPT-4: 10553Cluifcx 05/06/2015 ADMIN INFLUENZA VIRU S VAC CPT-4: G0008 02/19/2015 FLU VACC 4 TIFFANIE 3 YRS PLUS IM Formatting Model/CDA Sections, Assigned to SNOMED CT: [id number] CPT-4: 36374Divuhzt 02/19/2015 URINALYSIS NONAUTO W /O SCOPE CPT-4: 46239 05/23/2014 ADMIN INFLUENZA VIRU S VAC CPT-4: G0008 03/26/2014 FLU VAC NO PRSV 4 VA L 3 YRS+ Assigned to/Celia Minaya CPT-4: 40120Czihzer 03/26/2014 PRESCRIP TRANSMIT A ERX SY CPT-4: G8553 04/04/2013 ROUTINE VENIPUNCTURE CPT-4: 77555 02/19/2013 ADMIN INFLUENZA VIRU S VAC CPT-4: G0008 02/06/2013 FLULAVAL VACC, 3 YRS & >, IM CPT-4: Q2036 02/06/2013 16400 EST. PATIENT, LEVEL IV CPT-4: 07876 06/19/2012 PRESCRIP TRANSMIT A ERX SY CPT-4: G8553 06/19/2012 PRESCRIP TRANSMIT A ERX SY CPT-4: G8553 03/20/2012 PRESCRIP TRANSMIT A ERX SY CPT-4: G8553 06/23/2011 IMMUNIZATION ADMIN CPT- 4: 58481 02/25/2011 ZOSTER VACC SC (No lloyd stephens, patient supplied vaccine) CPT-4: 77509RL 02/25/2011 ADMIN PNEUMOCOCCAL V ACCINE SNOMED CT: [id number] CPT-4: G0009 02/16/2011 Pneumococcal Polysac charide Vaccine, 23-Valent, Ad CPT-4: 14028 02/16/2011 ADMIN INFLUENZA VIRU S VAC CPT-4: G0008 02/09/2011 FLULAVAL VACC, 3 YRS & >, IM CPT-4: Q2036 02/09/2011 PRESCRIP TRANSMIT A ERX SY CPT-4: G8553 02/01/2011 URINALYSIS NONAUTO W /O SCOPE CPT-4: 23748 01/27/2011 Vital Signs Date Vital 01/16/2019 Blood Pressure 1: 146/80 Code: 8480-6 BMI: 19.9 Code: 72796-8 Heart Rate 1: 81 bpm Height: 5'9" SpO2: 98% Waist Measure (cm): 86 cm Weight: 135 lbs 12/14/2018 Blood Pressure 1: 142/82 Code: 8480-6 BMI: 20.2 Code: 56777-1 Heart Rate 1: 68 bpm Height: 5'9" SpO2: 92% Weight: 137 lbs 08/17/2018 Blood Pressure 1: 138/68 Code: 8480-6 BMI: 20.4 Code: 81605-3 Heart Rate 1: 76 bpm Height: 5'9" Weight: 138 lbs 05/18/2018 Blood Pressure 1: 142/64 Code: 8480-6 BMI: 19.9 Code: 39232-4 Heart Rate 1: 52 bpm Height: 5'9" SpO2: 98% Weight: 135 lbs 04/13/2018 Blood Pressure 1: 128/58 Code: 8480-6 BMI: 21.0 Code: 91582-9 Heart Rate 1: 83 bpm Height: 5'9" SpO2: 94% Weight: 142 lbs 02/08/2018 Blood Pressure 1: 136/76 Code: 8480-6 BMI: 19.9 Code: 21585-8 Heart Rate 1: 78 bpm Height: 5'9" SpO2: 99% Weight: 135 lbs 01/19/2018 Blood Pressure 1: 114/78 Code: 8480-6 BMI: 19.9 Code: 19388-7 Heart Rate 1: 80 bpm Height: 5'9" SpO2: 98% Weight: 135 lbs 01/12/2018 Blood Pressure 1: 130/78 Code: 8480-6 BMI: 19.8 Code: 38660-6 Heart Rate 1: 85 bpm Height: 5'9" SpO2: 97% Weight: 134 lbs 01/05/2018 Blood Pressure 1: 122/70 Code: 8480-6 BMI: 19.6 Code: 52918-4 Heart Rate 1: 87 bpm Height: 5'9" SpO2: 96% Weight: 133 lbs 11/14/2017 Blood Pressure 1: 130/70 Code: 8480-6 BMI: 19.5 Code: 30682-2 Heart Rate 1: 75 bpm Height: 5'9" SpO2: 98% Weight: 132 lbs 2017 Blood Pressure 1: 116/70 Code: 8480-6 BMI: 19.5 Code: 02839-7 Heart Rate 1: 55 bpm Height: 5'9" SpO2: 95% Weight: 132 lbs 10/13/2017 Blood Pressure 1: 130/70 Code: 8480-6 BMI: 19.3 Code: 61623-2 Heart Rate 1: 67 bpm Height: 5'9" SpO2: 98% Weight: 131 lbs 09/26/2017 Blood Pressure 1: 126/70 Code: 8480-6 BMI: 19.1 Code: 37209-2 Heart Rate 1: 66 bpm Height: 5'9" SpO2: 100% Weight: 129 lbs 8 oz 09/12/2017 Blood Pressure 1: 120/70 Code: 8480-6 BMI: 19.5 Code: 62223-1 Heart Rate 1: 83 bpm Height: 5'9" SpO2: 99% Weight: 132 lbs 09/09/2017 Blood Pressure 1: 126/70 Code: 8480-6 BMI: 19.3 Code: 90721-0 Heart Rate 1: 80 bpm Height: 5'9" SpO2: 98% Weight: 131 lbs 08/17/2017 Blood Pressure 1: 130/74 Code: 8480-6 BMI: 19.6 Code: 97402-4 Heart Rate 1: 72 bpm Height: 5'9" SpO2: 98% Weight: 133 lbs 07/20/2017 Blood Pressure 1: 124/62 Code: 8480-6 BMI: 19.8 Code: 99750-8 Heart Rate 1: 65 bpm Height: 5'9" SpO2: 96% Weight: 134 lbs 07/01/2017 Blood Pressure 1: 134/64 Code: 8480-6 BMI: 21.0 Code: 90860-1 Height: 5'9" Weight: 142 lbs 06/21/2017 Blood Pressure 1: 142/80 Code: 8480-6 BMI: 21.0 Code: 29336-2 Heart Rate 1: 63 bpm Height: 5'9" SpO2: 98% Weight: 142 lbs 03/21/2017 Blood Pressure 1: 128/66 Code: 8480-6 BMI: 20.8 Code: 19545-6 Heart Rate 1: 61 bpm Height: 5'9" SpO2: 98% Weight: 141 lbs 03/08/2017 Blood Pressure 1: 134/68 Code: 8480-6 BMI: 20.4 Code: 92701-3 Heart Rate 1: 56 bpm Height: 5'9" SpO2: 99% Weight: 138 lbs 01/25/2017 Blood Pressure 1: 98/62 Code: 8480-6 BMI: 20.6 Code: 51490-9 Heart Rate 1: 71 bpm Height: 5'9" SpO2: 97% Weight: 139 lbs 8 oz 12/20/2016 Blood Pressure 1: 120/68 Code: 8480-6 BMI: 20.4 Code: 43850-0 Heart Rate 1: 70 bpm Height: 5'9" [...] 1: 120/60 Code: 8480-6 BMI: 20.7 Code: 03630-7 Heart Rate 1: 74 bpm Height: 5'9" SpO2: 95% Weight: 140 lbs 08/23/2016 Blood Pressure 1: 118/68 Code: 8480-6 BMI: 20.8 Code: 78465-5 Heart Rate 1: 54 bpm Height: 5'9" SpO2: 97% Weight: 141 lbs 04/26/2016 Blood Pressure 1: 108/64 Code: 8480-6 BMI: 21.0 Code: 34321-8 Heart Rate 1: 62 bpm Height: 5'9" SpO2: 95% Weight: 142 lbs 02/17/2016 Blood Pressure 1: 138/80 Code: 8480-6 BMI: 20.2 Code: 04202-6 Heart Rate 1: 76 bpm Height: 5'9" SpO2: 97% Weight: 137 lbs 02/09/2016 Blood Pressure 1: 140/76 Code: 8480-6 BMI: 20.2 Code: 66416-2 Heart Rate 1: 72 bpm Height: 5'9" SpO2: 96% Weight: 137 lbs 02/03/2016 Blood Pressure 1: 136/80 Code: 8480-6 BMI: 20.7 Code: 51253-0 Heart Rate 1: 86 bpm Height: 5'9" SpO2: 96% Weight: 140 lbs 01/26/2016 Blood Pressure 1: 144/78 Code: 8480-6 BMI: 20.7 Code: 54529-6 Heart Rate 1: 73 bpm Height: 5'9" SpO2: 97% Temperature: 37.0 (C ) / 98.6 (F) Weight: 140 lbs 01/21/2016 Blood Pressure 1: 116/62 Code: 8480-6 BMI: 20.4 Code: 34008-8 Heart Rate 1: 66 bpm Height: 5'9" SpO2: 97% Weight: 138 lbs 12/29/2015 Blood Pressure 1: 130/74 Code: 8480-6 BMI: 20.4 Code: 31022-9 Heart Rate 1: 51 bpm Height: 5'9" SpO2: 98% Weight: 138 lbs 09/02/2015 Blood Pressure 1: 126/60 Code: 8480-6 BMI: 22.3 Code: 68183-5 Heart Rate 1: 55 bpm Height: 5'9" SpO2: 96% Weight: 151 lbs 05/06/2015 Blood Pressure 1: 132/72 Code: 8480-6 BMI: 21.0 Code: 93489-3 Heart Rate 1: 63 bpm Height: 5'9" SpO2: 97% Weight: 142 lbs 03/05/2015 Blood Pressure 1: 130/68 Code: 8480-6 BMI: 21.0 Code: 76726-0 Heart Rate 1: 61 bpm Height: 5'9" SpO2: 96% Weight: 142 lbs 12/04/2014 Blood Pressure 1: 122/64 Code: 8480-6 BMI: 21.3 Code: 30283-9 Heart Rate 1: 72 bpm Height: 5'9" Weight: 144 lbs 09/24/2014 Blood Pressure 1: 142/80 Code: 8480-6 BMI: 20.4 Code: 85110-0 Heart Rate 1: 80 bpm Height: 5'9" Weight: 138 lbs 09/09/2014 Blood Pressure 1: 122/74 Code: 8480-6 BMI: 20.5 Code: 48188-6 Heart Rate 1: 64 bpm Height: 5'9" Weight: 139 lbs 07/26/2014 Blood Pressure 1: 136/82 Code: 8480-6 BMI: 20.4 Code: 08769-9 Heart Rate 1: 87 bpm Height: 5'9" SpO2: 92% Weight: 138 lbs 07/10/2014 Blood Pressure 1: 130/74 Code: 8480-6 BMI: 21.1 Code: 12889-2 Heart Rate 1: 64 bpm Height: 5'9" Weight: 143 lbs 06/06/2014 Blood Pressure 1: 142/88 Code: 8480-6 BMI: 20.4 Code: 27418-0 Heart Rate 1: 68 bpm Height: 5'9" Weight: 138 lbs 05/29/2014 Blood Pressure 1: 108/72 Code: 8480-6 BMI: 20.5 Code: 62037-7 Heart Rate 1: 60 bpm Height: 5'9" Weight: 139 lbs 05/20/2014 Blood Pressure 1: 140/72 Code: 8480-6 BMI: 21.6 Code: 87378-2 Heart Rate 1: 60 bpm Height: 5'9" SpO2: 98% Temperature: 36.2 (C ) / 97.2 (F) Weight: 146 lbs 03/25/2014 Blood Pressure 1: 128/60 Code: 8480-6 BMI: 21.4 Code: 68600-0 Heart Rate 1: 62 bpm Height: 5'9" Weight: 145 lbs 02/08/2014 Blood Pressure 1: 136/82 Code: 8480-6 BMI: 21.3 Code: 90924-6 Heart Rate 1: 68 bpm Height: 5'9" Weight: 144 lbs 12/24/2013 Blood Pressure 1: 122/76 Code: 8480-6 BMI: 21.6 Code: 47196-4 Heart Rate 1: 58 bpm Height: 5'9" Weight: 146 lbs 11/20/2013 Blood Pressure 1: 112/62 Code: 8480-6 BMI: 20.7 Code: 40634-7 Heart Rate 1: 56 bpm Height: 5'9" Weight: 140 lbs 10/30/2013 Blood Pressure 1: 130/68 Code: 8480-6 BMI: 20.1 Code: 41640-1 Heart Rate 1: 68 bpm Height: 5'9" SpO2: 96% Weight: 136 lbs 10/08/2013 Blood Pressure 1: 128/72 Code: 8480-6 BMI: 20.8 Code: 45218-2 Heart Rate 1: 60 bpm Height: 5'9" Temperature: 36.6 (C ) / 97.8 (F) Weight: 141 lbs 06/18/2013 Blood Pressure 1: 124/78 Code: 8480-6 BMI: 20.8 Code: 47462-4 Heart Rate 1: 64 bpm Height: 5'9" Weight: 141 lbs 04/04/2013 Blood Pressure 1: 138/60 Code: 8480-6 BMI: 20.8 Code: 33524-0 Heart Rate 1: 56 bpm Height: 5'9" Weight: 141 lbs 02/19/2013 Blood Pressure 1: 152/74 Code: 8480-6 BMI: 21.0 Code: 98943-3 Heart Rate 1: 60 bpm Height: 5'9" Weight: 142 lbs 10/16/2012 Blood Pressure 1: 122/70 Code: 8480-6 BMI: 20.8 Code: 66882-6 Heart Rate 1: 64 bpm Height: 5'9" Weight: 141 lbs 06/19/2012 Blood Pressure 1: 120/72 Code: 8480-6 BMI: 21.1 Code: 18388-5 Heart Rate 1: 60 bpm Height: 5'9" Weight: 143 lbs 03/20/2012 Blood Pressure 1: 114/76 Code: 8480-6 Heart Rate 1: 60 bpm Respiratory Rate: 16 bpm Weight: 143 lbs 01/24/2012 Blood Pressure 1: 134/70 Code: 8480-6 Heart Rate 1: 64 bpm Weight: 143 lbs 12/20/2011 Blood Pressure 1: 98/72 Code: 8480-6 BMI: 21.1 Code: 11010-0 Heart Rate 1: 60 bpm Height: 5'9" Respiratory Rate: 16 bpm Weight: 143 lbs 12/09/2011 Blood Pressure 1: 110/60 Code: 8480-6 Heart Rate 1: 66 bpm SpO2: 98% Weight: 141 lbs 08/25/2011 Blood Pressure 1: 112/70 Code: 8480-6 BMI: 20.8 Code: 10559-5 Heart Rate 1: 54 bpm Height: 5'9" Respiratory Rate: 16 bpm Weight: 141 lbs 06/23/2011 Blood Pressure 1: 126/64 Code: 8480-6 Heart Rate 1: 60 bpm Respiratory Rate: 16 bpm Weight: 142 lbs 04/19/2011 Blood Pressure 1: 124/64 Code: 8480-6 BMI: 21.1 Code: 75030-6 Heart Rate 1: 64 bpm Height: 5'9" Respiratory Rate: 16 bpm Weight: 143 lbs 03/23/2011 Blood Pressure 1: 137/71 Code: 8480-6 Heart Rate 1: 57 bpm 03/08/2011 Blood Pressure 1: 154/70 Code: 8480-6 BMI: 20.8 Code: 92595-6 Heart Rate 1: 60 bpm Height: 5'9" Respiratory Rate: 16 bpm Weight: 141 lbs 03/01/2011 Blood Pressure 1: 178/80 Code: 8480-6 Blood Pressure 2: 168/70 Code: 8480-6 BMI: 24.1 Code: 97281-1 Heart Rate 1: 60 bpm Height: 5'9" Respiratory Rate: 16 bpm Weight: 163 lbs 02/01/2011 Blood Pressure 1: 162/84 Code: 8480-6 Heart Rate 1: 60 bpm Respiratory Rate: 16 bpm Weight: 144 lbs 01/27/2011 Blood Pressure 1: 138/54 Code: 8480-6 BMI: 21.1 Code: 04166-8 Heart Rate 1: 68 bpm Height: 5'9" Respiratory Rate: 16 bpm Weight: 143 lbs 01/26/2011 Blood Pressure 1: 148/86 Code: 8480-6 BMI: 21.3 Code: 52803-0 Heart Rate 1: 74 bpm Height: 5'9" Weight: 144 lbs 01/15/2011 Blood Pressure 1: 136/76 Code: 8480-6 BMI: 20.5 Code: 89020-6 Heart Rate 1: 70 bpm Height: 5'10" Weight: 141 lbs 01/06/2011 Blood Pressure 1: 148/72 Code: 8480-6 BMI: 20.2 Code: 08188-9 Heart Rate 1: 72 bpm Height: 5'10" [...] ongoing 09/09/2014 reports that he sleeps we ll at night except when he has to [...] lightheadedness 05/29/2014 None cough Location in the th roat 05/20/2014 None cough Quality dry 05/20/2014 [...] contacts 05/20/2014 None cough Location in the roat 03/25/2014 None cough Quality hacking 03/25/2014 None [...] Findings Denies weakness 12/09/2011 None hypertension Quality [facility] 08/25/2011 None hypertension Onset and Resolution [...] Resolution sudden in onset 01/06/2011 October 27-November 3; also Augu st 9-25 abdominal pain Radiating the inguinal area 01/06/2011 [...] Encounters Encounter Performer Loca tion Codes Date ([id number]) [id number] EST. P ATIENT, LEVEL IV Diagnosis: Essential (primary) hypertension[ICD10: I10] Diagnosis: Cervicalgia[ICD10: M54.2] Ale Carlos MD, [facility] CPT-4: 27462 12/14/2018 [id number] EST. P ATIENT, LEVEL IV Diagnosis: Essential (primary) hypertension[ICD10: I10] Diagnosis: Gastro-esophageal reflux disease without esophagitis[ICD10: K21.9] Diagnosis: Alzheimer's disease with late onset[ICD10: G30.1] Ale Carlos MD, [facility] CPT-4: 17145 08/17/2018 [id number] EST. P ATIENT, LEVEL IV Diagnosis: Essential (primary) hypertension[ICD10: I10] Diagnosis: Nail dystrophy[ICD10: L60.3] Diagnosis: Abrasion of left upper arm, initial encounter[ICD10: S40.812A] Ale Carlos MD, [facility] CPT-4: 20095 05/18/2018 ([id number]) 92507 EST. P ATIENT, LEVEL III Diagnosis: Essential (primary) hypertension[ICD10: I10] Ale Carlos MD, [facility] CPT-4: 92055 04/13/2018 ([id number]) 08869 EST. P ATIENT, LEVEL IV Diagnosis: Irritable bowel syndrome with constipation[ICD10: K58.1] Diagnosis: Other lesions of oral mucosa[ICD10: K13.79] Diagnosis: Dry mouth, unspecified[ICD10: R68.2] Diagnosis: Encounter for immunization[ICD10: Z23] Diagnosis: Essential (primary) hypertension[ICD10: I10] Ale Carlos MD, [facility] CPT-4: 12966 02/08/2018 ([id number]) 85037 EST. P ATIENT, LEVEL III Diagnosis: Slow transit constipation[ICD10: K59.01] Diagnosis: Dry mouth, unspecified[ICD10: R68.2] Nelly Carlos MD, [facility] CPT-4: 53687 01/19/2018 ([id number]) Miscellaneou s no charge Diagnosis: Acute pharyngitis, unspecified[ICD10: J02.9] Nelly Carlos MD, [facility] CPT-4: 35824 01/13/2018 ([id number]) 97269 EST. P ATIENT, LEVEL III Diagnosis: Candidal stomatitis[ICD10: B37.0] Diagnosis: Cough[ICD10: R05] Nelly Carlos MD, [facility] CPT-4: 46989 01/12/2018 ([id number]) 11153 EST. 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 P ATIENT, LEVEL IV Diagnosis: Irritable bowel syndrome with constipation[ICD10: K58.1] Diagnosis: Malignant neoplasm of prostate[ICD10: C61] Ale Carlos MD, [facility] CPT-4: 97413 11/14/2017 14427 EST. PATIENT, LEVEL IV Diagnosis: Slow transit constipation[ICD10: K59.01] Diagnosis: Gastro-esophageal reflux disease without esophagitis[ICD10: K21.9] Ruchi Carlos MD, [facility] CPT-4: 95256 2017 ([id number]) 25503 EST. P ATIENT, LEVEL IV Diagnosis: Essential (primary) hypertension[ICD10: I10] Diagnosis: Slow transit constipation[ICD10: K59.01] Diagnosis: Underweight[ICD10: R63.6] Diagnosis: Gastro-esophageal reflux disease without esophagitis[ICD10: K21.9] Ale Carlos MD, [facility] CPT-4: 23530 10/13/2017 ([id number]) 25530 EST. P ATIENT, LEVEL IV Diagnosis: Slow transit constipation[ICD10: K59.01] Diagnosis: Gastroparesis[ICD10: K31.84] Diagnosis: Gastro-esophageal reflux disease without esophagitis[ICD10: K21.9] Diagnosis: Dysuria[ICD10: R30.0] Ale Carlos MD, [facility] CPT-4: 17845 09/26/2017 ([id number]) 99408 EST. P ATIENT, LEVEL IV Diagnosis: Other abnormal glucose[ICD10: R73.09] Diagnosis: Slow transit constipation[ICD10: K59.01] Ale Carlos MD, [facility] CPT-4: 75645 09/12/2017 83582 EST. PATIENT, LEVEL III Diagnosis: Other fatigue[ICD10: R53.83] Ruchi Carlos MD, [facility] CPT-4: 44972 09/09/2017 ([id number]) 82169 EST. P ATIENT, LEVEL IV Diagnosis: Slow transit constipation[ICD10: K59.01] Diagnosis: Irritable bowel syndrome with constipation[ICD10: K58.1] Diagnosis: Essential (primary) hypertension[ICD10: I10] Ale Carlos MD, [facility] CPT-4: 83696 08/17/2017 ([id number]) 51593 EST. P ATIENT, LEVEL III Diagnosis: Slow transit constipation[ICD10: K59.01] Diagnosis: Gastroparesis[ICD10: K31.84] Ale Carlos MD, [facility] CPT-4: 94153 07/20/2017 18120 EST. PATIENT, LEVEL III Diagnosis: Irritable bowel syndrome with constipation[ICD10: K58.1] Ruchi Carlos MD, [facility] CPT-4: 27540 07/01/2017 ([id number]) 98248 EST. P ATIENT, LEVEL IV Diagnosis: Essential (primary) hypertension[ICD10: I10] Diagnosis: Gas pain[ICD10: R14.1] Diagnosis: Generalized anxiety disorder[ICD10: F41.1] Diagnosis: Cervicalgia[ICD10: M54.2] Diagnosis: Pain in thoracic spine[ICD10: M54.6] Diagnosis: Unsteadiness on feet[ICD10: R26.81] Ale Carlos MD, [facility] CPT- 4: 26746 06/21/2017 ([id number]) 67643 EST. P ATIENT, LEVEL III Diagnosis: Essential (primary) hypertension[ICD10: I10] Ale Carlos MD, [facility] CPT-4: 90095 03/21/2017 87144 EST. PATIENT, LEVEL III Diagnosis: Other allergic rhinitis[ICD10: J30.89] Nelly Carlos MD, [facility] CPT-4: 26754 03/08/2017 ([id number]) 67772 EST. P ATIENT, LEVEL III Diagnosis: Encounter for immunization[ICD10: Z23] Diagnosis: Other hypotension[ICD10: I95.89] Ale Carlos MD, [facility] CPT-4: 46215 01/25/2017 ([id number]) 10940 EST. P ATIENT, LEVEL III Diagnosis: Essential (primary) hypertension[ICD10: I10] Diagnosis: Acute recurrent maxillary sinusitis[ICD10: J01.01] Ale Carlos MD, [facility] CPT-4: 32042 12/20/2016 ([id number]) 29437 EST. P ATIENT, LEVEL III Diagnosis: Acute recurrent ethmoidal sinusitis[ICD10: J01.21] Ale Carlos MD, [facility] CPT-4: 60246 12/01/2016 ([id number]) 32215 EST. P ATIENT, LEVEL III Diagnosis: Bronchitis, not specified as acute or chronic[ICD10: J40] Diagnosis: Cough[ICD10: R05] Ale Carlos MD, [facility] CPT-4: 60786 11/25/2016 ([id number]) 63002 EST. P ATIENT, LEVEL III Diagnosis: Cough[ICD10: R05] Diagnosis: Bronchitis, not specified as acute or chronic[ICD10: J40] Diagnosis: Candidal esophagitis[ICD10: B37.81] Ale Carlos MD, [facility] CPT- 4: 67178 11/18/2016 ([id number]) 73850 EST. P ATIENT, LEVEL IV Diagnosis: Essential (primary) hypertension[ICD10: I10] Diagnosis: Mild cognitive impairment, so stated[ICD10: G31.84] Ale Carlos MD, [facility] CPT-4: 13076 08/23/2016 ([id number]) 87509 EST. P ATIENT, LEVEL III Diagnosis: Essential (primary) hypertension[ICD10: I10] Ale Carlos MD, [facility] CPT-4: 02629 04/26/2016 ([id number]) Miscellaneou s no charge Diagnosis: Olecranon bursitis, right elbow[ICD10: M70.21] Nelly Carlos MD, [facility] CPT-4: 73697 02/09/2016 ([id number]) 27535 EST. P ATIENT, LEVEL III Diagnosis: Olecranon bursitis, right elbow[ICD10: M70.21] Nelly Carlos MD, [facility] CPT-4: 68402 02/03/2016 ([id number]) 68374 EST. P ATIENT, LEVEL III Diagnosis: Generalized abdominal tenderness[ICD10: R10.817] Ale Carlos MD, [facility] CPT-4: 11610 01/26/2016 34870 EST. PATIENT, LEVEL IV Diagnosis: Other allergic rhinitis[ICD10: J30.89] Ruchi Carlos MD, [facility] CPT-4: 26003 01/21/2016 ([id number]) 77249 EST. P ATIENT, LEVEL IV Diagnosis: Essential (primary) hypertension[ICD10: I10] Diagnosis: Hypo-osmolality and hyponatremia[ICD10: E87.1] Ale Carlos MD, [facility] CPT-4: 50809 12/29/2015 ([id number]) 15304 EST. P ATIENT, LEVEL IV Diagnosis: Essential (primary) hypertension[ICD10: I10] Diagnosis: Mild cognitive impairment, so stated[ICD10: G31.84] Ale Carlos MD, [facility] CPT-4: 95019 09/02/2015 ([id number]) 27267 EST. P ATIENT, LEVEL IV Diagnosis: Mixed hyperlipidemia[ICD10: E78.2] Diagnosis: Generalized anxiety disorder[ICD10: F41.1] Diagnosis: Mild cognitive impairment, so stated[ICD10: G31.84] Diagnosis: Essential (primary) hypertension[ICD10: I10] Diagnosis: Encounter for immunization[ICD10: Z23] Ale Carlos MD, [facility] CPT-4: 24231 05/06/2015 ([id number]) 19169 EST. 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 P ATIENT, LEVEL IV Diagnosis: ESSENTIAL HYPERTENSION[ICD9: 401.9] Diagnosis: GENERALIZED ANXIETY DISEASE[ICD9: 300.02] Diagnosis: MILD COGNITIVE IMPAIREMT[ICD9: 331.83] Diagnosis: IRRITABLE COLON[ICD9: 564.1] Ale Carlos MD, [facility] CPT-4: 47618 12/04/2014 ([id number]) 45134 EST. P ATIENT, LEVEL IV Diagnosis: Abdominal pain[ICD9: 789.00] Diagnosis: GENERALIZED ANXIETY DISEASE[ICD9: 300.02] Diagnosis: Hyponatremia[ICD9: 276.1] Diagnosis: ESSENTIAL HYPERTENSION[ICD9: 401.9] Nelly Cralos MD, [facility] CPT-4: 94678 09/24/2014 ([id number]) 60226 EST. P ATIENT, LEVEL IV Diagnosis: ESSENTIAL HYPERTENSION[ICD9: 401.9] Diagnosis: Osteoarthritis[ICD9: 715.90] Diagnosis: Mild cognitive impairment with memory loss[ICD9: 331.83] Ale Carlos MD, [facility] CPT-4: 93414 09/09/2014 ([id number]) 15603 EST. P ATIENT, LEVEL III Diagnosis: GENERALIZED ANXIETY DISEASE[ICD9: 300.02] Diagnosis: Depression[ICD9: 311] Ale Carlos MD, [facility] CPT-4: 52777 07/26/2014 ([id number]) 20602 EST. P ATIENT, LEVEL IV Diagnosis: ESSENTIAL HYPERTENSION[ICD9: 401.9] Diagnosis: GENERALIZED ANXIETY DISEASE[ICD9: 300.02] Diagnosis: MILD COGNITIVE IMPAIREMT[ICD9: 331.83] Ale Carlos MD, [facility] CPT-4: 37862 07/10/2014 ([id number]) 15376 EST. P ATIENT, LEVEL IV Diagnosis: Dizziness[ICD9: 780.4] Diagnosis: GENERALIZED ANXIETY DISEASE[ICD9: 300.02] Diagnosis: Depression[ICD9: 311] Diagnosis: ESSENTIAL HYPERTENSION[ICD9: 401.9] Diagnosis: Urinary frequency[ICD9: 788.41] Ale Carlos MD, [facility] CPT-4: 17395 06/06/2014 ([id number]) 95401 EST. P ATIENT, LEVEL IV Diagnosis: ESSENTIAL HYPERTENSION[ICD9: 401.9] Diagnosis: GENERALIZED ANXIETY DISEASE[ICD9: 300.02] Diagnosis: Mild cognitive impairment with memory loss[ICD9: 331.83] Ale Carlos MD, [facility] CPT-4: 18648 05/29/2014 ([id number]) 12414 EST. P ATIENT, LEVEL IV Diagnosis: Pneumonia[ICD9: 486] Diagnosis: COUGH[ICD9: 786.2] Diagnosis: Hyponatremia[ICD9: 276.1] Diagnosis: ALLERGIC RHINITIS[ICD9: 477.9] Ale Carlos MD, [facility] CPT-4: 28234 05/20/2014 ([id number]) 62590 EST. P ATIENT, LEVEL III Diagnosis: ESSENTIAL HYPERTENSION[ICD9: 401.9] Diagnosis: Cough[ICD9: 786.2] Ale Carlos MD, [facility] CPT-4: 31871 03/25/2014 ([id number]) 60395 EST. P ATIENT, LEVEL III Diagnosis: COUGH[ICD9: 786.2] Diagnosis: ALLERGIC RHINITIS[ICD9: 477.9] Nelly Carlos MD, [facility] CPT- 4: 20864 02/08/2014 ([id number]) 10524 EST. P ATIENT, LEVEL III Diagnosis: ESSENTIAL HYPERTENSION[ICD9: 401.9] Diagnosis: Nasal congestion[ICD9: 478.19] Ale Carlos MD, [facility] CPT-4: 49750 12/24/2013 ([id number]) 57130 EST. P ATIENT, LEVEL III Diagnosis: Seasonal allergies[ICD9: 477.9] Diagnosis: Nasal congestion[ICD9: 478.19] Diagnosis: ABNORMAL LOSS OF WEIGHT[ICD9: 783.21] Ale Carlos MD, [facility] CPT-4: 68618 11/20/2013 ([id number]) 80244 EST. P ATIENT, LEVEL III Diagnosis: ABNORMAL LOSS OF WEIGHT[ICD9: 783.21] Diagnosis: MALAISE AND FATIGUE[ICD9: 780.79] Diagnosis: Hyponatremia[ICD9: 276.1] Nelly Carlos MD, [facility] CPT- 4: 29456 10/30/2013 ([id number]) 99992 EST. P ATIENT, LEVEL III Diagnosis: Acute maxillary sinusitis[ICD9: 461.0] Diagnosis: COUGH[ICD9: 786.2] Ale Carlos MD, [facility] CPT-4: 56708 10/08/2013 ([id number]) 94854 EST. P ATIENT, LEVEL IV Diagnosis: ESSENTIAL HYPERTENSION[SNOMED: 66200059] Diagnosis: GENERALIZED ANXIETY DISEASE[ICD9: 300.02] Diagnosis: OSTEOARTH NOS-UNSPEC[ICD9: 715.90] Diagnosis: Coronary artery disease[ICD9: 414.00] Ale Carlos MD, [facility] CPT-4: 37286 06/18/2013 ([id number]) 57709 EST. P ATIENT, LEVEL III Diagnosis: ESSENTIAL HYPERTENSION[SNOMED: 57036544] Ale Carlos MD, C CPT-4: 96990 04/04/2013 ([id number]) 79049 EST. P ATIENT, LEVEL IV Diagnosis: ESSENTIAL HYPERTENSION[SNOMED: 56694834] Diagnosis: Leukopenia[ICD9: 288.50] Diagnosis: Encounter for long-term (current) use of other medications[ICD9: V58.69] Ale Carlos MD, [facility] CPT-4: 12044 02/19/2013 ([id number]) 93960 EST. P ATIENT, LEVEL IV Diagnosis: ESSENTIAL HYPERTENSION[SNOMED: 39638769] Diagnosis: MILD COGNITIVE IMPAIREMT[ICD9: 331.83] Ale Carlos MD, [facility] CPT-4: 10853 10/16/2012 ([id number]) 27040 EST. P ATIENT, LEVEL IV Diagnosis: ESSENTIAL HYPERTENSION[SNOMED: 21688124] Diagnosis: GENERALIZED ANXIETY DISEASE[ICD9: 300.02] Diagnosis: IRRITABLE COLON[ICD9: 564.1] Ale Carlos MD, [facility] CPT-4: 94277 03/20/2012 25560 EST. PATIENT, LEVEL IV Diagnosis: ESSENTIAL HYPERTENSION[SNOMED: 66320868] Diagnosis: Osteoarthritis[ICD9: 715.90] Diagnosis: HYPERLIPIDEMIA[ICD9: 272.4] Ale Carlos MD, [facility] CPT-4: 11698 01/24/2012 81578 EST. PATIENT, LEVEL IV Diagnosis: ESSENTIAL HYPERTENSION[SNOMED: 26327253] Diagnosis: BPH W URINARY OBS/LUTS[ICD9: 600.01] Ale Carlos MD, [facility] CPT-4: 87191 12/20/2011 ([id number]) 00540 EST. P ATIENT, LEVEL III Diagnosis: Lump in the groin[ICD9: 789.30] Ale Carlos MD, [facility] CPT-4: 22108 12/09/2011 ([id number] 17908 EST. P ATIENT, LEVEL IV Diagnosis: ESSENTIAL HYPERTENSION[SNOMED: 85404531] Diagnosis: Mild cognitive impairment[ICD9: 331.83] Ale Carlos MD, [facility] CPT-4: 24152 08/25/2011 ([id number]) 35569 EST. P ATIENT, LEVEL IV Diagnosis: ESSENTIAL HYPERTENSION[SNOMED: 64703845] Diagnosis: GENERALIZED ANXIETY DISEASE[ICD9: 300.02] Diagnosis: MILD COGNITIVE IMPAIREMT[ICD9: 331.83] Diagnosis: IRRITABLE COLON[ICD9: 564.1] Ale Carlos MD [facility] CPT-4: 07901 06/23/2011 ([id number]) 52333 EST. 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 PATIENT, LEVEL I Diagnosis: ESSENTIAL HYPERTENSION[SNOMED: 73024414] Ale Carlos MD, [facility] CPT-4: 15894 03/23/2011 55043 EST. PATIENT, LEVEL III Diagnosis: ESSENTIAL HYPERTENSION[SNOMED: 18966295] Diagnosis: Laceration of finger, index[ICD9: 883.0] Ale Carlos MD, [facility] CPT-4: 33697 03/08/2011 19225 EST. PATIENT, LEVEL III Diagnosis: ESSENTIAL HYPERTENSION[SNOMED: 90065498] Diagnosis: Irritable bowel syndrome (IBS)[ICD9: 564.1] Ale Carlos MD, [facility] CPT-4: 04588 03/01/2011 49421 EST. PATIENT, LEVEL IV Diagnosis: Mild cognitive impairment with memory loss[ICD9: 331.83] Diagnosis: GENERALIZED ANXIETY DISEASE[ICD9: 300.02] Diagnosis: Bruising[ICD9: 924.9] Diagnosis: HYDROCELE[ICD9: 603.9] Ale Carlos MD, [facility] CPT-4: 25335 02/01/2011 28684 EST. PATIENT, LEVEL III Diagnosis: Testicular pain[ICD9: 608.9] Diagnosis: GENERALIZED ANXIETY DISEASE[ICD9: 300.02] Nelly Carlos MD, [facility] CPT-4: 16178 01/27/2011 38640 EST. PATIENT, LEVEL III Diagnosis: Arm bruise[ICD9: 923.9] Nelly Carlos MD, [facility] CPT-4: 12837 01/26/2011 OFFICE VISIT, NEW - LEVEL 4 Diagnosis: DIARRHEA[ICD9: 787.91] Diagnosis: Elevated liver function tests[ICD9: 790.6] Diagnosis: Abdominal discomfort[ICD9: 789.00] Ale Carlos MD, [facility] CPT- 4: 16231 01/06/2011 Plan of Care Planned Activity Notes C odes Status Date Visit Plan: Medicare Exam - today w [...] care surrogate. 01/16/2019 Appointment: Nelly Keen WPtel: [address] [place], [place] [phone] [facility] - Annual Wellness Visit 01/16/2019 Patient Education: [...] painful again. 12/14/2018 Appointment: Ale Carlos WPtel: [address] [place], [place] [address] (15 min) Moderate 12/14/2018 Patient Education: Patient [...] this medication. 08/17/2018 Appointment: Ale Carlos WPtel: [address] [place], [place] [id number] (15 min) Moderate 08/17/2018 Patient Education: Patient [...] for nail debridement. 05/18/2018 Appointment: Ale Carlos WPtel:[phone] (15 min) Moderate 05/18/2018 Patient Education: Patient [...] mouth discomfort. 04/13/2018 Appointment: Ale Carlos WPtel: [phone] [facility] (30 min) Complex 04/13/2018 Patient Education: Patient [...] GI upset. 02/08/2018 Appointment: Ale Carlos WPtel: [facility] [place] [place] (30 min) Complex 02/08/2018 Patient Education: Patient Medication Summary Completed 02/08/2018 Patient Education: Hypertension Completed 02/08/2018 Appointment: [phone] [place] (15 min) Moderate 02/02/2018 Visit Plan: Ohdazpjydhyt-vednfte-cn start trulance 3mg daily Dry mouth-biotene mouth spray 01/19/2018 Appointment: Ale Carlos WPtel: [facility] (30 min) Complex 01/19/2018 Patient Education: Patient [...] or concerns 01/12/2018 Appointment: Nelly Keen WPtel: [phone] [phone] (15 min) Moderate 01/12/2018 Patient Education: Patient [...] be helping his symptoms. He is reporting speech therapist early intervention pain - i suspect that some of this is due to his eating early at night then taking at least 10 pills at bedtime without any food in his stomach, then excessive acid production with the pill burden causing him to wake up with pain in the speech therapist early intervention hours. I have recommended that he is to eat 1/2 a sandwich with his ensure at bedtime. 01/05/2018 Appointment: Ale Carlos WPtel: [phone] [facility] (15 min) Moderate 01/05/2018 Patient Education: Patient Medication Summary Completed 01/05/2018 Appointment: Ale Carlos WPtel: [phone] [facility] (30 min) Complex 01/04/2018 Visit Plan: Irritable [...] 11/03/2017 Care Plan: Referral Order SNOMED-CT : [id number] Pending 10/28/2017 Visit Plan: Constipation - uncontro [...] not improving. 2017 Appointment: Ruchi Agee WPtel: [address] [place], [place] [address] (15 min) Moderate 2017 Patient Education: Patient [...] size. 10/13/2017 Appointment: Ale Carlos WPtel: [phone] (30 min) Complex 10/13/2017 Patient Education: Patient [...] the medication. 09/26/2017 Appointment: Ale Carlos WPtel: [address] [place], [place] [address] [place] (15 min) Moderate 09/26/2017 Patient Education: Patient Medication Summary Completed 09/26/2017 Appointment: Ale Carlos WPtel: [address] [place], [place] [address] [place] (30 min) Complex 09/14/2017 Visit Plan: Constipation [...] as prescribed through the ER. 09/12/2017 Appointment: lAe Carlos WPtel: [facility]5 [facility] (30 min) Complex 09/12/2017 Patient Education: Patient Medication Summary Completed 09/12/2017 Visit Plan: Ongoing fatigue - persi stent - will check labs and treat as indicated - pt is to notify clinic if symptoms do not improve, if they worsen, or with any changes, questions, or concerns. 09/09/2017 Appointment: Ruchi Agee WPtel: [facility] (30 min) Complex 09/09/2017 Patient Education: Patient [...] at home. 08/17/2017 Appointment: Ale Carlos WPtel: [facility] (15 min) Moderate 08/17/2017 Patient Education: Patient [...] back to regular foods. 07/20/2017 Appointment: Ale aCrlos WPtel: [phone] (30 min) Complex 07/20/2017 Appointment: Ale Carlos WPtel: [address] [place] [address] [place] (30 min) Complex 07/20/2017 Patient Education: Patient Medication Summary Completed 07/20/2017 Appointment: Ale Carlos WPtel: [facility]5 [facility] [place] (30 min) Complex 07/19/2017 Appointment: Ale Carlos WPtel: [facility] [place] (15 min) Moderate 07/18/2017 Visit Plan: [...] this regimen. 07/01/2017 Appointment: Ruchi Agee WPtel: [facility] [place] ([facility] min) Complex 07/01/2017 Appointment: Ruchi Agee WPtel: [facility] (30 min) Complex 07/01/2017 Patient Education: Patient [...] management. 06/21/2017 Appointment: Ale Carlos WPtel: [phone] [facility] (30 min) Complex 06/21/2017 Patient Education: Patient [...] home. 03/21/2017 Appointment: Ale Carlos WPtel: [phone] [facility] (30 min) Complex 03/21/2017 Patient Education: Patient [...] spray. 03/08/2017 Appointment: Nelly Keen WPtel: [phone] [phone] [place] (30 min) Complex 03/08/2017 Patient Education: [...] shot 01/25/2017 Appointment: Ale Carlos WPtel: [phone] [facility] (30 min) Complex 01/25/2017 Patient Education: Patient [...] not improving. 12/20/2016 Appointment: Ale Carlos WPtel: [address] [place] [address] (30 min) Complex 12/20/2016 Patient Education: Patient Medication Summary Completed 12/20/2016 Patient Education: Hypertension Completed 12/20/2016 Appointment: Ruchi Agee WPtel: [address] [place] [address] - Annual Wellness Visit 12/03/2016 Visit Plan: [...] acutely worsen. 11/25/2016 Appointment: Ale Carlos WPtel: [address] [place] [address] (15 min) Moderate 11/25/2016 Patient Education: Patient [...] have thrush. 11/18/2016 Appointment: Ale Carlos WPtel: [facility] (15 min) Moderate 11/18/2016 Patient Education: [...] and namenda. labs to be done [facility] 08/23/2016 Appointment: Ale Carlos WPtel: [phone] (30 min) Complex 08/23/2016 Patient Education: Patient [...] at home. 04/26/2016 Appointment: Ale Carlos WPtel: [facility] (30 min) Complex 04/26/2016 Patient Education: Patient Medication Summary Completed 04/26/2016 Visit Plan: Joint effusion - recomm ended drainage and referral to orthopedic surgeon for surgical debridement of bursa 02/17/2016 Appointment: Ale Carlos WPtel: [facility] [place] (30 min) Complex 02/17/2016 Patient Education: Patient Medication Summary Completed 02/17/2016 Visit Plan: Bursitis-right elbow-dr healy today in the office- increase anti inflammatories for the next 5 days as directed-call if symptoms do not resolve, swelling returns or new symptoms develop-patient verbalized understanding of plan. 02/09/2016 Appointment: Nelly Keen WPtel: [phone] [place] (30 min) Complex 02/09/2016 Patient [...] of plan. 02/03/2016 Appointment: Nelly Keen WPtel: [facility]5 [phone] (30 min) Complex 02/03/2016 Patient Education: Patient Medication Summary Completed 02/03/2016 Patient Education: Patient Medication Summary Completed 01/30/2016 Care Plan: Metabolic Due on Pending 01/30/2016 Visit Plan: Abdominal pain - nausea - Pt to have IV fluids at hospital 01/26/2016 Appointment: Ale Carlos WPtel: [phone] [place] [place] 01/26/2016 Patient Education: Patient Medication Summary Completed 01/26/2016 Visit Plan: Allergies - chronic - r ecommended pt to use allergy medication as prescribed. Pt has been counseled as to the appropriate use of the medication. Pt to call if allergy symptoms are not controlled with th medication. If using nasal spray, instructions as follows: Nasal spray- use twice daily, one spray per nostril twice daily, after 30 minutes, rinse out nose with saline spray.. Use opposite hand per nostril to spray in the nasal steroid allergy spray. 01/21/2016 Appointment: N[facility]el[phone] ([facility] Complex 01/21/2016 Patient Education: Patient [...] treatment. 09/02/2015 Appointment: Ale Carlos WPtel: [phone] [place] (15 min) Moderate 09/02/2015 Patient Education: Patient [...] today 05/06/2015 Appointment: Ale Carlos WPtel: [phone] [place] (15 min) Moderate 05/06/2015 Patient Education: Patient Medication Summary Completed 05/06/2015 Patient Education: Hypertension Completed 05/06/2015 Care Plan: COMPLETE CBC AUTOMATED LOINC : 17981-5 Ordered 05/06/2015 Visit Plan: Hypertension - well [...] medications. 03/05/2015 Appointment: Ale Carlos WPtel: [phone] [place] ([place]) Complex 03/05/2015 Patient Education: Patient [...] -has improved. 12/04/2014 Appointment: Ale Carlos WPtel: [facility]5 [facility] [place] Follow up 12/04/2014 Patient Education: Patient Medication [...] ABD & PELV 1/> REGNS LOINC : 77055-1 Ordered 09/24/2014 Visit Plan: Hypertension - well [...] THAT HE SHOULD NOT BE DRIVING TO [facility] 07/26/2014 Appointment: Sick 07/26/2014 Appointment: Sick 07/26/2014 [...] medication list. 07/10/2014 Appointment: Ale Carlos WPtel: [facility]5 [facility] [place] [place] Follow up 07/10/2014 Patient Education: Patient Medication Summary Completed 07/10/2014 Patient Education: Hypertension Completed 07/10/2014 Appointment: Ale Carlos WPtel: [address] [place], [place] [address] [place] Follow up 06/20/2014 Appointment: Ale Carlos WPtel: [address] [place], [place] [phone] Follow up 06/10/2014 Visit Plan: Anxiety and [...] in blood pressure readings at home. Urinary fntymvtpo-PAX-hkigol flomax to bedtime Dizziness-stop hydrocodone and ativan [...] 3 WEEKS 05/29/2014 Appointment: Ale Carlos WPtel: [facility]5 [facility] [facility] 05/29/2014 Patient Education: Patient Medication Summary Completed 05/29/2014 Patient Education: Hypertension Completed 05/29/2014 Appointment: Ale Carlos WPtel: [facility]5 [facility] Lab Draw 05/23/2014 Patient Education: Patient Medication Summary Completed 05/23/2014 Visit Plan: Pneumonia - Pt has been diagnosed with pneumonia by physical exam. A chest xray has been ordered as have antibiotics. The pt is aware of the diagnosis and the need for acute treatment of this illness. A gqbitakh-xywdi-mjwysgp flonase nasal spray Hyponatremia-increase gatorade as directed 05/20/2014 Visit Plan: Pneumonia - Pt has been diagnosed with pneumonia by physical exam. A chest xray has been ordered as have antibiotics. The pt is aware of the diagnosis and the need for acute treatment of this illness. A lhenmxmd-ugdzc-ynmcknu flonase nasal spray Hyponatremia-increase gatorade as directed ADDENDUM: RECOMMEND PATIENT START ON ALBUTEROL NEBULIZER TREATMENTS EVERY 4 HOURS NEEDED FOR SHORTNESS OF BREATH/WHEEZING. DX SECONDARY PNEUMONIA FROM INFLUENZA, COUGH 05/20/2014 Patient Education: Patient Medication Summary Completed 05/20/2014 Appointment: Ale Cralos WPtel: [facility]5 [facility] [place] Injection 03/26/2014 Patient Education: Patient Medication [...] Dr. Merlos. 03/25/2014 Appointment: Ale Carlos WPtel: [facility]5 [facility] Follow up 03/25/2014 Patient Education: Patient Medication Summary Completed 03/25/2014 Patient Education: Hypertension Completed 03/25/2014 Visit Plan: Yzaqy-phfbdlori-nllpfbc laryngeal reflux-RX for protonix (patient is on [...] at home. 12/24/2013 Appointment: Ale Carlos WPtel: [facility]3 [facility] [place] Follow up 12/24/2013 Patient Education: Patient Medication [...] portion size. 11/20/2013 Appointment: Ale Carlos WPtel: [address] [place], [place] [phone] Follow up 11/20/2013 Patient Education: Patient Medication Summary Completed 11/20/2013 Appointment: Ale Carlos WPtel: [address] [place], [place] [phone] Follow up 11/06/2013 Visit Plan: Weight loss-increase po rtions-add snacks in the morning and afternoon-follow up in 3 weeks for weight check Low sodium-check labs-restart gatorade Fgoviqk-dbdmtw-qgmsx labs and UA 10/30/2013 Patient Education: Patient Medication Summary Completed 10/30/2013 Appointment: Ale Carlos WPtel: [address] [place], [place] [phone] Follow up 10/16/2013 Visit Plan: Sinusitis - [...] Dr. Merlos. 06/18/2013 Appointment: Ale Carlos WPtel: [facility]5 [facility] Follow up 06/18/2013 Patient Education: Patient Medication [...] acute concerns. 04/04/2013 Appointment: Ale Carlos WPtel: [address] [place], [place] [phone] Follow up 04/04/2013 Patient Education: Patient Medication [...] with report. 02/19/2013 Appointment: Ale Carlos WPtel: [facility]8 [facility] Follow up 02/19/2013 Patient Education: Patient Medication [...] loss. 10/16/2012 Appointment: Ale Carlos WPtel: [phone] [place] Follow up 10/16/2012 Patient Education: Patient Medication [...] colon return. 06/19/2012 Appointment: Ale Carlos WPtel: [phone] [facility] [place] Follow up 06/19/2012 Patient Education: Patient Medication [...] bentyl. 03/20/2012 Appointment: Ale Carlos WPtel: [phone] [facility] Follow up 03/20/2012 Patient Education: Patient Medication Summary Completed 03/20/2012 Patient Education: High Blood Pressure: Essential Hypertension Completed 03/20/2012 Appointment: Ale Carlos WPtel: [phone] [facility] Follow up 02/22/2012 Visit Plan: Hypertension - [...] as needed. 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 I anticipate it will be at least 4-6 months before he can be off of the plavix and aspirin for additonal procedures unless it is of extreme urgency. 12/20/2011 Appointment: Ale Carlos WPtel: [address] [place], [place] [phone] Follow up 12/20/2011 Patient Education: Patient Medication Summary Completed 12/20/2011 Patient Education: High Blood Pressure: Essential Hypertension Completed 12/20/2011 Appointment: Ale Carlos WPtel: [address] [place], [place] [phone] [place] Other 12/13/2011 Visit Plan: Pain in groin post hear t cath with increased discomfort and increased size - will order an ultrasound for today. 12/09/2011 Appointment: Ale Carlos WPtel: [address] [place], [place] [phone] Other 12/09/2011 Patient Education: Patient Medication Summary [...] either medication. 08/25/2011 Appointment: Ale Carlos WPtel: [address] [place], [place] [phone] Other 08/25/2011 Patient Education: Patient Medication Summary [...] low doses. 06/23/2011 Appointment: Ale Carlos WPtel: [address] [place], [place] [phone] Other 06/23/2011 Patient Education: Patient Medication Summary Completed 06/23/2011 Patient Education: High Blood Pressure: Essential Hypertension Completed 06/23/2011 Appointment: Ale Carlos WPtel: [address] [place], [place] [phone] Other 04/26/2011 Visit Plan: Hypertension - well [...] seeds, etc. 04/19/2011 Appointment: Ale Carlos WPtel: [facility]4 [facility] Other 04/19/2011 Patient Education: Patient Medication Summary Completed 04/19/2011 Patient Education: High Blood Pressure: Essential Hypertension Completed 04/19/2011 Patient Education: Diverticulosis Diet Completed 04/19/2011 Appointment: Nelly Keen [facility]Ptel: [phone] Other 03/23/2011 Patient Education: Patient Medication Summary Completed 03/23/2011 Patient Education: High Blood Pressure: Essential Hypertension Completed 03/23/2011 Visit Plan: Record blood pressure a nd heart rate at home and drop the readings by the office in two weeks. No change in medications today. Laceration - removed suture today - pt to call if any complications arise. 03/08/2011 Appointment: Ale Carlos WPtel: [phone] [place] [place] 03/08/2011 Patient Education: Patient Medication Summary [...] day. 03/01/2011 Appointment: Ale Carlos WPtel: [phone] [facility] Other 03/01/2011 Patient Education: Patient Medication Summary Completed 03/01/2011 Patient Education: High Blood Pressure: Essential Hypertension Completed 03/01/2011 Appointment: Nelly Keen WPtel: [phone] [phone] [place] Injection 02/25/2011 Patient Education: Patient Medication Summary Completed 02/25/2011 Appointment: Ale Carlos WPtel: [phone] [facility] [place] Injection 02/16/2011 Patient Education: Patient Medication Summary Completed 02/16/2011 Appointment: Ale Carlos WPtel: [phone] [facility] [place] Injection 02/09/2011 Patient Education: Patient Medication Summary Completed 02/09/2011 Appointment: Ale Carlos WPtel: [phone] [facility] [place] Follow up 02/02/2011 Visit Plan: Hydrocele [...] with his son - Kenji Dash in [place]. Upon our conversation mttu-dmt-nzhkq, Kenji vocalized concerns for his Dad's memory. He stated that he has noticed his father not being as quick in his cognitive functioning, he has noticed some concerns with driving as well. He states that he will discuss these concerns with his parents and other siblings. 02/01/2011 Appointment: Ale Carlos WPtel: [phone] [facility] Other 02/01/2011 Patient Education: Patient Medication Summary [...] as needed. 01/27/2011 Appointment: Ale Carlos WPtel: [facility]0 [place] [address] [place] New Patient 01/27/2011 Patient Education: Patient Medication Summary Completed 01/27/2011 Visit Plan: Bruising/hematoma left arm-discussed natural and expected course of this diagnosis and to alert me if symptoms do not follow expected course or if any worse, Continue with ice/heat as needed for disc omfort. Call for any concerns. 01/26/2011 Appointment: Nelly Keen WPtel: [facility]8 [address] Other 01/26/2011 Patient Education: Patient Medication Summary [...] for full course. 01/15/2011 Visit Plan: Nocturia-defer treatmen t to [...] OF 01/15/11 01/15/2011 Appointment: Nelly Keen WPtel: [facility]4 [place] [phone] Other 01/15/2011 Patient Education: Patient Medication Summary [...] free diet. 01/06/2011 Appointment: Ale Carlos WPtel: [facility]5 [facility] [place] New Patient 01/06/2011 Patient Education: Patient Medication Summary Completed 01/06/2011 Referral: External, Ordering Provider Referral Relationship Instructions Comment . Hypertension - wel l controlled - [...] of his anxiety and memory loss. . 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 I anticipate it will be at least 4-6 months before he can be off of the plavix and aspirin for additonal procedures unless it is of extreme urgency. CHANGE YOUR BATTERIE S IN YOUR BLOOD [...] her DOPA paperwork for health care surrogate. . Constipation - unc ontrolled - pt [...] office if the symptoms are not improving. I sent a prescriptio n of generic zyrtec to [facility] - if it is expensive get [...] and swallow - you have thrush. . Pain in groin post heart cath with increased discomfort and increased size - will order an ultrasound for today. CHECK LABS-CBC, CMP, UA WITH C&S IF INDICATED . Weight loss-increase portions-add snac ks in the morning and afternoon-follow up in 3 weeks for weight check Low sodium-check labs-restart gatorade Hhcjfdm-zmtrck-sndod labs and UA . Joint effusion - r ecommended drainage and referral to orthopedic surgeon for surgical debridement of bursa . Irritable bowel sy ndrome with constipation [...] new treatments which can avoid rectal irritation. Blood pressure check today in the office-improving. Nasal spray- use twi ce daily, one [...] spray in the nasal steroid allergy spray. Discussed with Dr. Aaliyah pringle - He [...] for discomfort. Call for any concerns. INCREASE GATORADE TO TWICE DAILY . Abdominal pain-patient reports worseni ng symptoms-schedule CT abdomen/pelvis to evaluate for acute abnormality Low sodium-increase gatorade to twice HTN-well controlled-no change in treatment . Thrush -okay to re start the nystatin -take as directed- return if symptoms do not resolve or if any worse Cough-improving -you don't need to take the cough syrup routinely -only use as needed -call with any questions or concerns INCREASE YOUR MELOXI CAM (MOBIC) TO 1/2 PILL TWICE DAILY X 5 DAYS CALL IF YOUR ELBOWS SWELLS AGAIN OR YOU DEVELOP PAIN OR OTHER CONCERNS . Bursitis-right elbow-drained today in the office-increase anti inflammatories for the next 5 days as directed-call if symptoms do not resolve, swelling returns or new symptoms develop-patient verbalized understanding of plan. . Hypertension - wel l controlled at [...] 8 hours as needed. . Hypertension - wel l controlled - [...] not need increased dose of either medication. INCREASE GATORADE TO THREE TIMES PER DAY X 2 DAYS THEN TWICE DAILY stop doxycycline START CEFDINIR AND ZITHROMAX . Pneumonia - Pt has been diagnosed with pneumonia by physical exam. A chest xray has been ordered as have antibiotics. The pt is aware of the diagnosis and the need for acute treatment of this illness. Bbuvfgmml-ujljw-myfwhgj flonase nasal spray Hyponatremia-increase gatorade as directed . Pneumonia - Pt has been diagnosed with pneumonia by physical exam. A chest xray has been ordered as have antibiotics. The pt is aware of the diagnosis and the need for acute treatment of this illness. Znufddoqs-brhag-gotaurk flonase nasal spray Hyponatremia-increase gatorade as directed ADDENDUM: RECOMMEND PATIENT START ON ALBUTEROL NEBULIZER TREATMENTS EVERY 4 HOURS NEEDED FOR SHORTNESS OF BREATH/WHEEZING. DX SECONDARY PNEUMONIA FROM INFLUENZA, COUGH . Abdominal pain - n ausea - Pt to have IV fluids at hospital . Hypertension - unc ontrolled - the [...] day. . Constipation - unc ontrolled - I [...] if symptoms not improved on this regimen. stop the multivitami n stop the calcium [...] be helping his symptoms. He is reporting speech therapist early intervention pain - i suspect that some of this is due to his eating early at night then taking at least 10 pills at bedtime without any food in his stomach, then excessive acid production with the pill burden causing him to wake up with pain in the speech therapist early intervention hours. I have recommended that he is [...] thyroid and cbc prevnar 13 injection today Appointment in [address] [place] [address] Carlos. Recommend Lactobacillus 1 orally [...] patient report. Finish antibiotics for full course. . Hypertension - wel l controlled - [...] change in current medications. . Hypertension - wel l controlled - [...] with his son - Kenji Dash in [place]. Upon our conversation pcab-fwr-xapfm, Kenji vocalized concerns for his Dad's memory. He stated that he has noticed his father not being as quick in his cognitive functioning, he has noticed some concerns with driving as well. He states that he will discuss these concerns with his parents and other siblings. . Constipation - co ntinue with Miralax [...] diet, and monitor symptoms of GI upset. Dr. Carlos talked to Dr. Merlos today [...] for the bottom number flu shot . Allergies - recomm ended pt to [...] spray in the nasal steroid allergy spray. if you are still segundo ing protonix [...] change in blood pressure readings at home. Start on Reglan at a 1/2 tablet [...] your diet back to regular foods. . Ongoing fatigue - persistent - will check labs and treat as indicated - pt is to notify clinic if symptoms do not improve, if they worsen, or with any changes, questions, or concerns. on the Requip - decr ease the [...] and namenda. labs to be [place] [facility] [place] the office in 2 weeks [...] twice HTN-well controlled-no change in treatment . Fqxhq-nhcicmyew-mt spect laryngeal reflux-RX for protonix (patient is on plavix) and follow up in 1 month. Call if symptoms do not improve or if any worse Allergies-improved on flonase-continue as directed and call if symptoms return. . Hypertension - wel l controlled - [...] 3 days of the lactose free diet. stop lisinopril and start on losartan 50mg [...] I have discussed this with Dr. Merlos. get Aspercreme from [employer] for your upper neck/upper back. lactaid pills - take before you drink milk or eat cheese or ice cream or yogurt use gas-ex one pill three times daily . Neck and upper back pain and gait unst eadiness - referral to [facility] for upper and low back pain and left arm pain and have gait eval. get Aspercreme from [employer] for your upper neck/upper back. Abdominal upset/cramping - lactaid pills - take before you drink milk or eat cheese or ice cream or yogurt use gas-ex one pill three times daily Chronic anxiety - stable - continue with current management. INCREASE ARICEPT (DO NEPEZIL) TO 5MG TAKEN [...] THE SIMVASTATIN X 3 WEEKS . Nocturia-defer daina atment to Dr. Quintero. [...] with increase in protein and portion size. stop losartan - [facility] blood pressure and heart rate [...] spray -it is over the counter . Xysutdyvxgoa-fxrtrov-xkslncy trulance 3mg daily Dry mouth-biotene mouth spray decrease Protonix (p antoprazole) to ONE pill [...] plan of treatment. if you are still segundo ing protonix [...] THAT HE SHOULD NOT BE DRIVING TO [facility] Pt is to try 1/2 pil l [...] call out rx for antibiotic nasal spray use icy hot on your neck take [...] again . Hypertension - well controlled - jmaia nue with current medications, continue with no [...] to get stiff or painful again. . Bronchitis - acute but improving - [...] treatment per Dr. Merlos. . Hypertension - we ll controlled - [...] to continue to avoid nuts, seeds, etc. . Hypertension - wel l controlled - [...] mobic at low doses. . Hypertension - wel l controlled - [...] include a medication list. PT HAS BEEN INSTRUCT ED TO INCREASE [...] acute concerns. for now - keep on e Miralax [...] pressure readings at home. . Hypertension - we ll controlled - [...] if symptoms of irritable colon return. . Record blood press ure and heart [...] in your mouth discomfort. . Hypertension - wel l controlled - [...] continue with treatment per Dr. Merlos. ESCITALOPRAM (LEXAPR O) 5MG DAILY AT BEDTIME-THIS [...] in blood pressure readings at home. Urinary dymufobxy-KDZ-xqcjrh flomax to bedtime Dizziness-stop hydrocodone and ativan
--- OUTSIDE RECORDS SUMMARY | 2019-07-16 07:12 | XMS REPORT | CCD ---
Author Author Kenneth Carlos Organization Ale Carlos MD, [facility] Address [address] [place] [address] Phone Care Team Providers Care Building Architectural Designer Name Role Phone Ale Carlos PP Unavailable CCM Unavailable Summary Purpose Interface Exchange Insurance Providers Payer name Policy type / Coverage type Covered republican ID Effective Begin Date Effective End Date WPS Medicare Part B Medicare Part B [id number] Unknown Unknown [facility] icare Part B [id number] Unknown Unk nown Family history Runs in the family Diagnosis Age At Onset No Family Disease Entered N/A Mother Diagnosis Age At Onset No Family Disease Entered N/A Father Diagnosis Age At Onset Heart disease Unknown Social History Social History Element Codes Description Effective Dates Number of children Unknown 3 ([place], [place], [place]) 10/14/19 18 Living arrangements Unknown House 01/11/2011 Number of adults in household Unknown 2 01/11/2011 Education level Unknown Post-Graduate PHD in chemistry 01/11/2011 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 Unknown Has never used illegal drugs 011 Allergies, Adverse Reactions, Alerts Substance Reaction Codes Entered Date Inactivated Date Status * NO KNOWN FOOD NAYE RGIES Unknown 04/19/2011 No Inactive Date Active Toradol RxNorm: 64774 03/05/2011 No Inactive Date Active Lisinopril cough, Unknown 03/25/2014 No In active Date Active Past Medical History Illness Codes [...] Condition Codes Effectiv e Dates Condition Status Cervicalgia ICD-9: 723.1 ICD-10: [...] Date Stop Date Sta tus Fill Instructions clopidogrel 75 mg ta blet RxNorm: 674493 TAKE 1 TABLET BY MOUT H EVERY DAY 12/12/2018 06/09/2019 Ac tive lisinopril 20 mg tablet RxNorm: 652652 TAKE 1 TABLET DAILY 11/14/2018 05/12/2019 Active mirtazapine 15 mg ta blet RxNorm: 226085 TAKE ONE TABLET BY MO UTH EVERY DAY 10/25/2018 10/19/2019 Ac tive Namenda 10 mg tablet RxNorm: 971981 Tablet(s) TAKE 1 TABLET BY MOUTH TWICE D AILY. 08/18/2018 No Stop Date Active clopidogrel 75 mg ta blet RxNorm: 822034 TAKE 1 TABLET BY MOUT H EVERY DAY 08/14/2018 12/11/2018 In active amlodipine 10 mg tablet RxNorm: 302701 TAKE 1 TABLET BY MOUTH EVERY DAY 07/14/2018 07/23/2018 In active clopidogrel 75 mg ta blet RxNorm: 220726 TAKE 1 TABLET BY MOUT H EVERY DAY 06/23/2018 12/19/2018 Ac tive Zantac 150 mg tablet RxNorm: 087923 1 TABLET(S) PO QAM 06/12/2018 01/07/2019 Active lisinopril 20 mg tablet RxNorm: 713929 TAKE 1 TABLET DAILY 06/05/2018 07/23/2018 Inactive triamterene 37.5 mg- hydrochlorothiazide 25 mg tablet RxNorm: 950863 1 Tablet(s) PO daily 05/18/2018 12/13/2018 Inactive cetirizine 10 mg tablet RxNorm: 7416295 TABLET(S) 1 TABLET(S) PO DAILY TO TAKE I ROXANNATEAD OF THE CLARITIN 03/13/2018 02/05/2019 Active amlodipine 10 mg tablet RxNorm: 625384 TAKE 1 TABLET BY MOUTH EVERY DAY 03/09/2018 07/23/2018 In active fluticasone 50 mcg/a ctuation nasal spray,suspension RxNorm: 3001900 1 [place] NASAL BID 02/08/2018 No Stop Date Active fluticasone 50 mcg/a ctuation nasal spray,suspension RxNorm: 9125370 1 [place] NASAL BID 02/08/2018 02/07/2018 Inactive Trulance 3 mg tablet RxNorm: 5463800 1 Tablet(s) PO QAM 01/19/2018 08/16/2018 Inactive cefdinir 300 mg capsule RxNorm: 276009 1 Capsule(s) PO BID 12/28/2017 01/03/2018 Inactive cefdinir 300 mg capsule RxNorm: 120485 1 Capsule(s) PO BID 12/28/2017 12/27/2017 Inactive clopidogrel 75 mg ta blet RxNorm: 292838 TAKE 1 TABLET BY MOUT H EVERY DAY 12/26/2017 06/22/2018 In active Namenda 10 mg tablet RxNorm: 280591 Tablet(s) TAKE 1 TABLET BY MOUTH TWICE D AILY. 12/15/2017 08/17/2018 Inactive Robinul 1 mg tablet RxNorm: 546105 1/2 Tablet(s) PO AC & HS 12/12/2017 12/14/2017 Inactive Robinul 1 mg tablet RxNorm: 263091 1/2 Tablet(s) PO AC & HS 12/12/2017 12/11/2017 Inactive donepezil 10 mg tablet RxNorm: 316609 1 TABLET(S) PO DAILY TAKE 1 TABLET BY MO UTH ONCE DAILY 12/08/2017 12/11/2017 Inactive Patient requests 90 days supply lisinopril 20 mg tablet RxNorm: 456906 TAKE 1 TABLET DAILY 12/05/2017 01/11/2018 Inactive Cymbalta 30 mg capsu le,delayed release RxNorm: 081308 1 Capsule(s) PO daily 12/05/2017 12/04/2017 In active Cymbalta 30 mg capsu le,delayed release RxNorm: 811335 1 Capsule(s) PO daily 12/05/2017 12/05/2017 In active Trulance 3 mg tablet RxNorm: 6976797 1 Tablet(s) PO daily 11/14/2017 12/13/2017 Inactive Linzess 145 mcg capsule RxNorm: 8280286 1 Capsule(s) PO daily 10/28/2017 12/14/2017 Inactive Zantac 150 mg tablet RxNorm: 191788 1 Tablet(s) PO QAM 10/13/2017 01/04/2018 Inactive mirtazapine 15 mg ta blet RxNorm: 209334 TAKE ONE TABLET BY MO UTH EVERY DAY 09/29/2017 09/23/2018 In active Mobic 15 mg tablet RxNorm: 712062 1/2 TABLET(S) DAILY 09/26/2017 12/19/2017 Inactive lisinopril 20 mg tablet RxNorm: 376095 1/2 Tablet(s) daily 09/13/2017 01/12/2018 Inactive amlodipine 10 mg tablet RxNorm: 817860 TAKE 1 TABLET BY MOUTH EVERY DAY 09/09/2017 08/07/2018 In active Reglan 5 mg tablet RxNorm: 192894 1/2 Tablet(s) PO TID may increase up to a full pill three times daily as needed for poor GI motility 07/20/2017 09/17/2017 Inactive Protonix 40 mg table t,delayed release RxNorm: 862055 1 Tablet(s) PO daily 07/04/2017 01/29/2018 In active clopidogrel 75 mg ta blet RxNorm: 329895 TAKE 1 TABLET BY MOUT H EVERY DAY 06/20/2017 12/16/2017 In active cetirizine 10 mg tablet RxNorm: 7978293 TABLET(S) 1 TABLET(S) PO DAILY TO TAKE I NSTEAD OF THE CLARITIN 06/06/2017 03/12/2018 Inactive lisinopril 20 mg tablet RxNorm: 671762 TAKE 1 TABLET DAILY 05/30/2017 09/12/2017 Inactive Mobic 15 mg tablet RxNorm: 990234 1/2 TABLET(S) DAILY 03/21/2017 09/16/2017 Inactive donepezil 10 mg tablet RxNorm: 783362 1 Tablet(s) PO daily TAKE 1 TABLET BY MO UTH ONCE DAILY 02/28/2017 11/24/2017 Inactive Patient requests 90 days supply Requip 0.25 mg tablet RxNorm: 041881 1 TABLET(S) PO BID 01/24/2017 01/04/2018 Inactive Patient requests 90 days supply clopidogrel 75 mg ta blet RxNorm: 012356 TAKE 1 TABLET BY MOUT H EVERY DAY 12/23/2016 06/19/2017 In active lisinopril 20 mg tablet RxNorm: 803273 TAKE 1 TABLET DAILY 11/26/2016 05/24/2017 Inactive Kenalog 40 mg/mL hugo pension for injection RxNorm: 6322709 Milliliter(s) Inj 11/25/2016 11/25/2016 In active cefdinir 300 mg capsule RxNorm: 786844 1 Capsule(s) PO BID 11/23/2016 11/27/2016 Inactive cefdinir 300 mg capsule RxNorm: 563283 1 Capsule(s) PO BID 11/23/2016 11/22/2016 Inactive nystatin 100,000 uni t/mL oral suspension RxNorm: 836851 5 Milliliter(s) PO QI D 11/18/2016 11/27/2016 In active azithromycin 250 mg tablet RxNorm: 345828 1 Tablet(s) PO UD 2 p ills on day #1 then one pill daily x 4 more days 11/18/2016 11/22/2016 Inactive Mobic 15 mg tablet RxNorm: 127223 1/2 TABLET(S) DAILY 10/28/2016 03/20/2017 Inactive citalopram 10 mg tablet RxNorm: 530632 TAKE 1 TABLET BY MOUTH EVERY DAY 10/07/2016 03/05/2017 In active Patient requests 90 days supply mirtazapine 15 mg ta blet RxNorm: 445832 TAKE ONE TABLET BY MO UTH EVERY DAY 10/06/2016 09/28/2017 In active mirtazapine 15 mg ta blet RxNorm: 610054 TAKE ONE TABLET BY MO UTH EVERY DAY 10/05/2016 10/05/2016 In active Patient requests 90 days supply amlodipine 10 mg tablet RxNorm: 988301 TAKE 1 TABLET BY MOUTH EVERY DAY 09/14/2016 01/24/2017 In active clopidogrel 75 mg ta blet RxNorm: 845652 TAKE 1 TABLET BY MOUT H EVERY DAY 06/28/2016 12/22/2016 In active lisinopril 20 mg tablet RxNorm: 248882 TAKE 1 TABLET DAILY 05/31/2016 11/25/2016 Inactive donepezil 10 mg tablet RxNorm: 836365 TAKE 1 TABLET BY MOUTH ONCE DAILY 05/11/2016 11/06/2016 In active donepezil 10 mg tablet RxNorm: 454607 TAKE 1 TABLET BY MOUTH ONCE DAILY 04/26/2016 02/28/2017 In active Mobic 15 mg tablet RxNorm: 709704 1/2 Tablet(s) daily 04/19/2016 10/15/2016 Inactive citalopram 10 mg tablet RxNorm: 233436 TAKE 1 TABLET BY MOUTH EVERY DAY 04/06/2016 04/25/2016 In active cetirizine 10 mg tablet RxNorm: 5584856 Tablet(s) 1 TABLET(S) PO DAILY TO TAKE I NSTEAD OF THE CLARITIN 03/30/2016 02/22/2017 Inactive amlodipine 10 mg tablet RxNorm: 511505 TAKE 1 TABLET BY MOUTH EVERY DAY 03/08/2016 01/24/2017 In active amlodipine 10 mg tablet RxNorm: 802078 1 Tablet(s) PO daily TAKE 1 TABLET BY MO UTH ONCE DAILY 03/03/2016 03/07/2016 Inactive Requip 0.25 mg tablet RxNorm: 617057 1 Tablet(s) PO BID 03/03/2016 09/13/2016 Inactive Mobic 15 mg tablet RxNorm: 764605 1 Tablet(s) daily not refilled on a 02/23/2016 04/18/2016 In active cetirizine 10 mg tablet RxNorm: 9964510 1 TABLET(S) PO DAILY TO TAKE INSTEAD OF THE CLARITIN 02/19/2016 03/19/2016 Inactive lisinopril 20 mg tablet RxNorm: 333749 TAKE 1 TABLET DAILY 02/18/2016 05/17/2016 Inactive Namenda 10 mg tablet RxNorm: 309931 Tablet(s) TAKE 1 TABLET BY MOUTH TWICE D AILY. 02/17/2016 12/14/2017 Inactive lisinopril 20 mg tablet RxNorm: 909955 TAKE 1 TABLET DAILY 01/23/2016 01/24/2017 Inactive cetirizine 10 mg tablet RxNorm: 5476010 1 Tablet(s) PO daily to take instead of the claritin 01/21/2016 02/18/2016 Inactive amlodipine 10 mg tablet RxNorm: 894253 1 Tablet(s) PO daily TAKE 1 TABLET BY MO UTH ONCE DAILY 12/02/2015 03/02/2016 Inactive clopidogrel 75 mg ta blet RxNorm: 084228 TAKE 1 TABLET BY MOUT H EVERY DAY 11/25/2015 05/22/2016 In active Mobic 15 mg tablet RxNorm: 162294 TAKE(1/2) TABLET DAILY. 11/17/2015 02/22/2016 Inactive lisinopril 20 mg tablet RxNorm: 881922 TAKE 1 TABLET DAILY 11/17/2015 01/15/2016 Inactive Mobic 15 mg tablet RxNorm: 936637 1/2 Tablet(s) PO daily TAKE (1/2) TABLET DAILY. 11/12/2015 11/16/2015 Inactive citalopram 10 mg tablet RxNorm: 864143 TAKE 1 TABLET BY MOUTH EVERY DAY 10/27/2015 04/05/2016 In active Requip 0.25 mg tablet RxNorm: 390408 1 Tablet(s) PO BID 10/15/2015 02/11/2016 Inactive Requip 0.25 mg tablet RxNorm: 924196 1 Tablet(s) PO BID 10/15/2015 10/14/2015 Inactive mirtazapine 15 mg ta blet RxNorm: 150496 1 Tablet(s) PO daily 09/08/2015 10/01/2016 Inactive donepezil 10 mg tablet RxNorm: 926182 TAKE 1 TABLET DAILY 09/01/2015 04/25/2016 Inactive amlodipine 10 mg tablet RxNorm: 451780 1 Tablet(s) PO daily TAKE 1 TABLET BY MO UT ONCE DAILY 08/18/2015 12/01/2015 Inactive clopidogrel 75 mg ta blet RxNorm: 836756 1 Tablet(s) PO daily TAKE 1 TABLET DAILY 05/20/2015 11/24/2015 In active Mobic 15 mg tablet RxNorm: 787553 Tablet(s) TAKE (1/2) TABLET DAILY. 04/23/2015 10/19/2015 In active lisinopril 20 mg tablet RxNorm: 253592 TAKE 1 TABLET DAILY 04/22/2015 11/16/2015 Inactive Mobic 15 mg tablet RxNorm: 427029 TAKE (1/2) TABLET DAILY. 04/22/2015 04/22/2015 Inactive sulfamethoxazole 400 mg-trimethoprim 80 mg tablet RxNorm: 070315 1/2 Tablet(s) PO nancy y 03/11/2015 04/09/2015 Inactive Vesicare 5 mg tablet RxNorm: 689076 1 Tablet(s) PO 03/11/2015 05/09/2015 Inactive Protonix 40 mg table t,delayed release RxNorm: 654275 1 Tablet(s) PO BID 03/05/2015 09/30/2015 In active ok to change from [address] Archana rivera clopidogrel 75 mg ta blet RxNorm: 138869 1 Tablet(s) PO daily TAKE 1 TABLET DAILY 02/20/2015 05/19/2015 In active Namenda 10 mg tablet RxNorm: 639080 Tablet(s) TAKE 1 TABLET BY MOUTH TWICE D AILY. 01/22/2015 02/16/2016 Inactive amlodipine 10 mg tablet RxNorm: 442199 TAKE 1 TABLET BY MOUTH ONCE DAILY 01/14/2015 08/17/2015 In active donepezil 10 mg tablet RxNorm: 419063 TAKE 1 TABLET DAILY 01/06/2015 08/31/2015 Inactive Levsin 0.125 mg tablet RxNorm: 2239152 1 Tablet(s) PO QID as needed FOR ABD REJI N 11/05/2014 12/03/2014 In active Mobic 15 mg tablet RxNorm: 356006 1/2 Tablet(s) daily TAKE (1/2) TABLET DA MOIZ. 10/01/2014 04/21/2015 Inactive ciprofloxacin 500 mg tablet RxNorm: 753665 1 Tablet(s) PO BID 09/27/2014 10/01/2014 Inactive Flagyl 500 mg tablet RxNorm: 288270 1 Tablet(s) PO TID 09/27/2014 10/03/2014 Inactive take probiotic BID donepezil 10 mg tablet RxNorm: 271886 1/2 Tablet(s) PO BID 09/24/2014 01/05/2015 Inactive lisinopril 20 mg tablet RxNorm: 971876 TAKE 1 TABLET DAILY 09/05/2014 04/21/2015 Inactive amlodipine 10 mg tablet RxNorm: 417372 1 Tablet(s) PO daily 09/02/2014 12/30/2014 Inactive mirtazapine 15 mg ta blet RxNorm: 215835 1 Tablet(s) PO daily 08/28/2014 09/07/2015 Inactive donepezil 10 mg tablet RxNorm: 003386 1 Tablet(s) PO daily 08/28/2014 09/23/2014 Inactive citalopram 10 mg tablet RxNorm: 473192 1 Tablet(s) PO daily 08/28/2014 03/25/2015 Inactive citalopram 10 mg tablet RxNorm: 463406 1 Tablet(s) PO daily 08/07/2014 08/27/2014 Inactive citalopram 10 mg tablet RxNorm: 270609 1 Tablet(s) PO daily 08/07/2014 08/06/2014 Inactive Flagyl 500 mg tablet RxNorm: 475432 1 Tablet(s) PO TID 08/02/2014 08/01/2014 Inactive take probiotic BID Flagyl 500 mg tablet RxNorm: 184530 1 Tablet(s) PO TID 08/02/2014 08/08/2014 Inactive take probiotic BID tamsulosin ER 0.4 mg capsule,extended release 24 hr RxNorm: 217618 1 Capsule(s) PO QHS 06/06/2014 03/10/2015 Inactive TAKE AT BEDTIME escitalopram 5 mg ta blet RxNorm: 130112 1 Tablet(s) PO QPM 06/06/2014 08/06/2014 Inactive doxycycline hyclate 100 mg tablet RxNorm: 574898 1 Tablet(s) PO BID 05/31/2014 05/30/2014 Inactive doxycycline hyclate 100 mg tablet RxNorm: 417335 1 Tablet(s) PO BID 05/31/2014 06/06/2014 Inactive please deliver if not picked by 3pm Aricept 5 mg tablet RxNorm: 952628 1 Tablet(s) PO BID 05/29/2014 08/27/2014 Inactive losartan 50 mg tablet RxNorm: 098434 1/2 Tablet(s) PO daily 05/29/2014 12/28/2015 Inactive clopidogrel 75 mg ta blet RxNorm: 771557 1 Tablet(s) PO daily 05/27/2014 05/26/2014 Inactive Mobic 15 mg tablet RxNorm: 346509 TAKE (1/2) TABLET DAILY. 05/27/2014 09/30/2014 Inactive clopidogrel 75 mg ta blet RxNorm: 276183 TAKE 1 TABLET DAILY 05/27/2014 02/19/2015 Inactive Mobic 15 mg tablet RxNorm: 453412 1/2 Tablet(s) PO daily TAKE (1/2) TABLET DAILY. 05/27/2014 05/26/2014 Inactive prednisone 20 mg tablet RxNorm: 550386 1 Tablet(s) PO BID 05/21/2014 05/25/2014 Inactive albuterol sulfate 2. 5 mg/0.5 mL solution for nebulization RxNorm: 922010 1 inhale INH Q4H as needed 05/21/2014 09/01/2015 Inactive prednisone 20 mg tablet RxNorm: 110832 1 Tablet(s) PO BID 05/21/2014 05/20/2014 Inactive cefdinir 300 mg capsule RxNorm: 103831 1 Capsule(s) PO BID 05/20/2014 05/26/2014 Inactive Zithromax Z-Dequan 250 mg tablet RxNorm: 859066 1 Tablet(s) PO UD 05/20/2014 05/24/2014 Inactive zpack lorazepam 0.5 mg tablet RxNorm: 027616 1/2 to 1 Tablet(s) PO Q8 PRN as needed 04/30/2014 06/05/2014 In active Namenda 10 mg tablet RxNorm: 230171 TAKE 1 TABLET BY MOUTH TWICE DAILY. 04/15/2014 01/21/2015 In active Namenda 10 mg tablet RxNorm: 532258 1 Tablet(s) PO BID 04/15/2014 04/14/2014 Inactive losartan 50 mg tablet RxNorm: 179809 1 Tablet(s) PO daily 03/25/2014 05/28/2014 Inactive Protonix 40 mg table t,delayed release RxNorm: 882970 1 Tablet(s) PO QPM 03/21/2014 06/18/2014 In active ok to change from [address] Archana rivera fluticasone 50 mcg/a ctuation nasal spray,suspension RxNorm: 048606 1 [place] NASAL BID 03/04/2014 09/29/2014 Inactive Protonix 20 mg table t,delayed release RxNorm: 510067 1 Tablet(s) PO QPM 02/08/2014 03/20/2014 In active fluticasone 50 mcg/a ctuation nasal spray,suspension RxNorm: 290872 1 [place] NASAL BID 01/30/2014 03/03/2014 Inactive fluticasone 50 mcg/a ctuation nasal spray,suspension RxNorm: 109512 1 [place] NASAL BID 12/24/2013 01/29/2014 Inactive fluticasone 50 mcg/a ctuation nasal spray,suspension RxNorm: 888447 1 [place] NASAL BID 11/20/2013 12/23/2013 Inactive doxycycline hyclate 100 mg capsule RxNorm: 7902358 1 Capsule(s) PO BID 10/08/2013 10/17/2013 In active doxycycline hyclate 100 mg capsule RxNorm: 5989036 capsule oral 10/08/2013 10/29/2013 Inactive fluticasone 50 mcg/a ctuation nasal spray,suspension RxNorm: 411597 spray,suspension nasl 10/08/2013 11/19/2013 Inactive fluticasone 50 mcg/a ctuation nasal spray,suspension RxNorm: 932183 1 [place] NASAL BID Nasal spray- use twice daily, one spray per nostril twice daily, after 30 minutes, rinse out nose with saline spray. 10/08/2013 10/29/2013 Inactive mirtazapine 7.5 mg t ablet RxNorm: 337101 1/2 Tablet(s) PO daily 08/30/2013 08/27/2014 Inactive lorazepam 0.5 mg tablet RxNorm: 585283 1/2 Tablet(s) PO Q8 PRN 08/21/2013 04/29/2014 Inactive Aricept 5 mg tablet RxNorm: 370707 Tablet(s) PO TAKE 1 TABLET DAILY 08/21/2013 05/28/2014 In active Plavix 75 mg tablet RxNorm: 787474 Tablet(s) PO TAKE 1 TABLET DAILY 05/24/2013 12/04/2014 In active clopidogrel 75 mg ta blet RxNorm: 742417 tablet oral 05/24/2013 05/26/2014 Inactive Plavix 75 mg tablet RxNorm: 261687 1 Tablet(s) PO daily 05/23/2013 05/23/2013 Inactive meloxicam 15 mg tablet RxNorm: 977195 tablet oral 04/26/2013 03/25/2014 Inactive Mobic 15 mg tablet RxNorm: 462739 Tablet(s) PO TAKE (1/2) TABLET DAILY. 04/26/2013 05/26/2014 In active Mobic 15 mg tablet RxNorm: 683594 1/2 Tablet(s) PO daily 04/25/2013 04/25/2013 Inactive lisinopril 20 mg tablet RxNorm: 906543 1 Tablet(s) PO 04/04/2013 03/24/2014 Inactive finasteride 5 mg tablet RxNorm: 319513 tablet oral 03/22/2013 09/01/2015 Inactive lisinopril 10 mg tablet RxNorm: 818814 1 Tablet(s) PO daily 02/14/2013 04/03/2013 Inactive donepezil 5 mg tablet RxNorm: 076276 tablet oral 02/07/2013 12/24/2013 Inactive Influenza Virus Vacc ine 0.5 mL RxNorm: IM 02/06/2013 02/06/2013 Inactive Aricept 5 mg tablet RxNorm: 037029 1 Tablet(s) PO daily 02/06/2013 08/04/2013 Inactive tamsulosin ER 0.4 mg capsule,extended release 24 hr RxNorm: 234267 capsule,extended release 24hr oral 12/21/2012 06/05/2014 Inactive Plavix 75 mg tablet RxNorm: 899597 1 Tablet(s) PO daily 12/05/2012 05/03/2013 Inactive lorazepam 0.5 mg tablet RxNorm: 177239 1/2 Tablet(s) PO Q8 PRN 11/14/2012 08/20/2013 Inactive lisinopril 10 mg tablet RxNorm: 430726 1 Tablet(s) PO daily 08/08/2012 02/03/2013 Inactive Aricept 5 mg tablet RxNorm: 449966 1 Tablet(s) PO daily 08/08/2012 02/03/2013 Inactive Plavix 75 mg tablet RxNorm: 671554 1 Tablet(s) PO daily 07/04/2012 11/30/2012 Inactive Mobic 15 mg tablet RxNorm: 763716 1/2 Tablet(s) PO daily 03/20/2012 04/13/2013 Inactive Namenda 10 mg tablet RxNorm: 125345 1 Tablet(s) PO BID 02/22/2012 04/11/2014 Inactive lorazepam 0.5 mg tablet RxNorm: 097408 1/2 Tablet(s) PO Q8 PRN 02/02/2012 11/13/2012 Inactive lisinopril 10 mg tablet RxNorm: 620243 1 Tablet(s) PO daily 01/24/2012 07/21/2012 Inactive lisinopril 10 mg tablet RxNorm: 481896 1/2 Tablet(s) PO daily 12/20/2011 01/23/2012 Inactive Aricept 5 mg tablet RxNorm: 588013 1 Tablet(s) PO daily 07/14/2011 08/06/2012 Inactive Mobic 15 mg tablet RxNorm: 776236 1 Tablet(s) PO daily 07/14/2011 03/19/2012 Inactive Bentyl 10 mg Cap RxNorm: 138549 1 Capsule(s) PO daily one pill daily and every 6 hours if needed for bowel spasms. 06/23/2011 03/20/2012 Inactive amlodipine 5 mg Tab RxNorm: 454006 2 Tablet(s) PO daily 03/08/2011 12/08/2011 Inactive ZOSTAVAX 19,400 unit Sub-Q Soln RxNorm: 7781595 SQ 02/2502/25/2011 Inactive Pneumovax 23 25 mcg/ 0.5 mL Injection RxNorm: 176773 Milliliter(s) Inj 02/16/2011 02/16/2011 In active Influenza Virus Vacc ine 0.5 mL RxNorm: IM 02/09/2011 02/09/2011 Inactive Namenda 10 mg tablet RxNorm: 998392 1 Tablet(s) PO BID 02/01/2011 02/21/2012 Inactive dicyclomine 10 mg ca psule RxNorm: 421471 capsule oral 01/20/2011 10/29/2013 Inactive Namenda 5 mg tablet RxNorm: 712902 tablet oral 01/20/2011 12/24/2013 Inactive dicyclomine 20 mg ta blet RxNorm: 109150 tablet oral 01/15/2011 10/29/2013 Inactive Flagyl 500 mg Tab RxNorm: 726096 1 Tablet(s) PO TID 01/07/2011 01/06/2011 Inactive Cipro 500 mg Tab RxNorm: 857177 1 Tablet(s) PO BID 01/07/2011 06/23/2011 Inactive Cipro 500 mg Tab RxNorm: 526512 1 Tablet(s) PO BID 01/07/2011 01/06/2011 Inactive Flagyl 500 mg Tab RxNorm: 229734 1 Tablet(s) PO TID 01/07/2011 06/23/2011 Inactive metronidazole 500 mg tablet RxNorm: 742293 tablet oral 01/07/2011 12/24/2013 Inactive sulfamethoxazole 400 mg-trimethoprim 80 mg tablet RxNorm: 808391 tablet oral 12/24/2010 03/10/2015 In active mirtazapine 15 mg ta blet RxNorm: 108870 tablet oral 11/14/2010 12/24/2013 Inactive lisinopril 10 mg tablet RxNorm: 509953 tablet oral 11/14/2010 12/24/2013 Inactive doxycycline hyclate 100 mg tablet RxNorm: 990947 tablet oral 11/04/2010 12/24/2013 Inactive diphenoxylate-atropi ne 2.5 mg-0.025 mg tablet RxNorm: 5266999 tablet oral 11/03/2010 10/29/2013 In active ciprofloxacin 500 mg tablet RxNorm: 822268 tablet oral 11/01/2010 10/29/2013 Inactive Miralax 17 gram/dose oral powder RxNorm: 466949 17 Gram(s) PO daily No Start Date Active alprazolam 0.25 mg t ablet RxNorm: 455978 1 Tablet(s) PO BID PRN No Start Date Active simvastatin 20 mg ta blet RxNorm: 657810 1 Tablet(s) PO daily No Start Date Active Vesicare 5 mg tablet RxNorm: 775289 1 Tablet(s) PO daily No Start Date Active bicalutamide 50 mg t ablet RxNorm: 471338 1 Tablet(s) PO daily No Start Date Active sulfamethoxazole 500 mg Tab RxNorm: 678847 1/2 Tablet(s) PO daily No Start Date 12/24/2013 Inactive Plavix 75 mg Tab RxNorm: 416683 1 Tablet(s) PO daily No Start Date 01/26/2011 Inactive aspirin 81 mg Cap, D elayed Release RxNorm: 417484 1 Capsule(s) PO daily No Start Date 01/04/2018 Inactive Bentyl 10 mg capsule RxNorm: 043380 1 Capsule(s) PO QID as needed per dr. tylor pereira No Start Date 01/04/2018 Inactive famotidine 20 mg tablet RxNorm: 544679 1 Tablet(s) PO BID prescribed in ER No Start Date 10/13/2017 Inactive hydrocodone 5 mg-alexey taminophen 325 mg tablet RxNorm: 053693 1 Tablet(s) PO Q6 as needed No Start Date 06/05/2014 Inactive Proscar 5 mg Tab RxNorm: 292302 1 Tablet(s) PO daily No Start Date 09/01/2015 Inactive Plavix 75 mg tablet RxNorm: 578730 1 Tablet(s) PO daily No Start Date 07/03/2012 Inactive albuterol sulfate 2. 5 mg/0.5 mL solution for nebulization RxNorm: 581359 1 inhale INH Q4H as needed No Start Date 05/20/2014 Inactive metoclopramide 5 mg tablet RxNorm: 128878 1 Tablet(s) PO AC & H S prescribed in ER No Start Date 01/04/2018 Inactive amlodipine 5 mg Tab RxNorm: 086755 1 Tablet(s) PO daily No Start Date 03/07/2011 Inactive ranitidine 150 mg ta blet RxNorm: 401108 1 Tablet(s) PO daily No Start Date 07/24/2018 Inactive Namenda 5 mg Tab RxNorm: 947483 1 Tablet(s) PO daily No Start Date 06/23/2011 Inactive Zyrtec 10 mg tablet RxNorm: 9704870 1 Tablet(s) PO daily No Start Date 01/04/2018 Inactive Allergy Relief (ceti rizine) oral RxNorm: 473100 oral No S tart Date 12/19/2016 Inactive fluocinonide 0.05 % Ointment RxNorm: 814681 1 TOP BID PRN No Start Date 12/24/2013 Inactive amlodipine 5 mg tablet RxNorm: 219622 1 Tablet(s) PO daily No Start Date 09/01/2014 Inactive lisinopril Oral RxNorm: Oral No Start Date 12/08/2011 Inactive simvastatin 20 mg Tab RxNorm: 627256 1 Tablet(s) PO daily No Start Date 06/06/2014 Inactive Bentyl 20 mg Tab RxNorm: 440921 1 Tablet(s) PO Q6 PRN No Start Date 06/23/[address] Quintero Bentyl 10 mg Cap RxNorm: 137774 1 Capsule(s) PO BID No Start Date 06/22/2011 Inactive fluticasone 50 mcg/a ctuation nasal spray,suspension RxNorm: 3680323 1 [place] NASAL BID No Start Date 02/07/2018 Inactive Plavix 75 mg Tab RxNorm: 089846 1 Tablet(s) PO every other day No Start Date 08/24/2011 Inactive lorazepam 0.5 mg tablet RxNorm: 472469 1/2 Tablet(s) PO Q8 PRN No Start Date 02/01/2012 Inactive lisinopril 10 mg tablet RxNorm: 315068 1 Tablet(s) PO daily No Start Date 12/19/2011 Inactive Trulance 3 mg tablet RxNorm: 6223349 1 Tablet(s) PO QAM No Start Date 01/18/2018 Inactive Flomax 0.4 mg 24 hr Cap RxNorm: 026390 1 Capsule(s) PO daily No Start Date 05/28/2014 Inactive Phenergan 6.25 mg/5 mL syrup RxNorm: 676005 5-10 Milliliter(s) PO QID as needed No Start Date 08/16/2018 Inactive Aricept 5 mg Tab RxNorm: 387905 1 Tablet(s) PO daily No Start Date 07/13/2011 Inactive Vitamin D 1,000 unit Tab RxNorm: 947519 1 Tablet(s) PO daily No Start Date 01/04/2018 Inactive Levsin 0.125 mg tablet RxNorm: 4587468 1 Tablet(s) PO QID as needed FOR ABD REJI N No Start Date 11/04/2014 Inactive mirtazapine 7.5 mg t ablet RxNorm: 122758 1/2 Tablet(s) PO daily No Start Date 08/29/2013 Inactive Senior Vitamin Tab RxNorm: 1 Tablet(s) PO daily No Start Date 01/04/2018 Inactive Mobic 15 mg Tab RxNorm: 453585 1 Tablet(s) PO daily No Start Date 07/13/2011 Inactive Medication Administered Medication Codes Instruc tions Start Date Status Kenalog 40 mg/mL suspension for injection RxNorm: 0094146 Milliliter 11/25/2016 No longer Active Influenza Virus Vaccine 0.5 mL RxNorm: 02/06/2013 No longer Active ZOSTAVAX 19,400 unit Sub-Q Soln RxNo rm: 6547570 02/25/2011 No longer A ctive Pneumovax 23 25 mcg/0.5 mL Injection RxNorm: 325216 Milliliter 02/16/2011 No longer Active Influenza Virus [...] completed Assessments Condition Codes Effectiv e Dates Cervicalgia ICD-10: M54.2 ICD-9: 723.1 12/14/2018 Essential [...] Visit Reason For Visit Effective Dates Notes back pain 12/14/2018 hypertension 08/17/2018 abdominal pain [...] Ord15 CALCIUM 10.1 mg/dL 06/08/2018 Comp Metabolic Xov257 NA 143 mEq/L 04/10/2018 Comp Metabolic Toa495 K 3.8 mEq/L 04/10/2018 Comp Metabolic Ort784 CL 105 mEq/L 04/10/2018 Comp Metabolic Zaw799 CO2 30.0 mEq/L 04/10/2018 Comp Metabolic Wzu774 AN ION GAP 12 04/10/2018 Comp Metabolic Znr519 GL UCOSE 95 mg/dL 04/10/2018 Comp Metabolic Mxv402 Cr eat 1.2 mg/dL 04/10/2018 Comp Metabolic Byi365 eG FR 60 ml/min/1.73m2 04/10 Comp Metabolic Sde449 BUN 22 mg/dL 04/10/2018 Comp Metabolic Pkx730 B/ C Ratio 18.2 Ratio 04/10/2018 Comp Metabolic Xfo978 CA LCIUM 10.3 mg/dL 04/10/2018 Comp Metabolic Rpg280 AL K PHOS 113 U/L 04/10/2018 Comp Metabolic Vib519 T(SGOT) 30 U/L 04/10/2018 Comp Metabolic Jdn820 AL T(SGPT) 19 U/L 04/10/2018 Comp Metabolic Ruj658 BI LI T 0.4 mg/dL 04/10/2018 Comp Metabolic Qop355 AL BUMIN 4.2 g/dL 04/10/2018 Comp Metabolic Fdo334 TP RO 6.5 g/dL 04/10/2018 Comp Metabolic Uyu536 GL OB 2.3 g/dL 04/10/2018 Comp Metabolic Yvc918 A/ G Ratio 1.8 Ratio 04/10/2018 Comp Metabolic Hgf310 Os mo 288 mOsmo 04/10/2018 Lipid Ord30 CHOL 133 mg/dL 04/10/2018 Lipid Ord30 HDL 49.0 mg/dl 04/10/2018 Lipid Ord30 TRIG 68 mg/dL 04/10/2018 Lipid Ord30 LDL 70 mg/dL 04/10/2018 Lipid Ord30 C/HDL 2.7 Ratio 04/10/2018 C RAP A SC 5994361 Strep A Negative 01/13/2018 Comp Metabolic Nkt317 NA 134 mEq/L 10/07/2017 Comp Metabolic Qiy820 K 4.5 mEq/L 10/07/2017 Comp Metabolic Mwe768 CL 99 mEq/L 10/07/2017 Comp Metabolic Zbp018 CO2 31.0 mEq/L 10/07/2017 Comp Metabolic Clu801 AN ION GAP 9 10/07/2017 Comp Metabolic Fzp909 GL UCOSE 82 mg/dL 10/07/2017 Comp Metabolic Emk721 Cr eat 1.0 mg/dL 10/07/2017 Comp Metabolic Tgt744 eG FR 77 ml/min/1.73m2 10/07 Comp Metabolic Jhw351 BUN 16 mg/dL 10/07/2017 Comp Metabolic Cih697 B/ C Ratio 16.3 Ratio 10/07/2017 Comp Metabolic Vio883 CA LCIUM 9.6 mg/dL 10/07/2017 Comp Metabolic Ita645 AL K PHOS 72 U/L 10/07/2017 Comp Metabolic Cwc199 T(SGOT) 21 U/L 10/07/2017 Comp Metabolic Nos767 AL T(SGPT) 14 U/L 10/07/2017 Comp Metabolic Cmi426 BI LI T 0.4 mg/dL 10/07/2017 Comp Metabolic Tkn511 AL BUMIN 4.0 g/dL 10/07/2017 Comp Metabolic Yuf536 TP RO 5.7 g/dL 10/07/2017 Comp Metabolic Jpy046 GL OB 1.7 g/dL 10/07/2017 Comp Metabolic Qrr654 A/ G Ratio 2.4 Ratio 10/07/2017 Comp Metabolic Zdb577 Os mo 269 mOsmo 10/07/2017 Lipid Ord30 CHOL 135 mg/dL 10/07/2017 Lipid Ord30 HDL 69.0 mg/dl 10/07/2017 Lipid Ord30 TRIG 52 mg/dL 10/07/2017 Lipid Ord30 LDL 56 mg/dL 10/07/2017 Lipid Ord30 C/HDL 2.0 Ratio 10/07/2017 %Hba1C Jib042 % HbA1c 44117-3 5.5 % 09/12/2017 %Hba1C Rwc884 Gluc Ave 111 mg/dL 09/12/2017 B12 Nvl386 B12 816.00 pg/ml 09/10/2017 Test(s) Not Perfromed Test(s) Not Performed Test(s) Not Performed. See B elow: 09/09/2017 Test(s) Not Perfromed TEST NAME VIT D 09/09/2017 Test(s) Not Perfromed Rejection Reason NO PAYABLE DX 018 Test(s) Not Perfromed COMMENT PATIENT SAID HE WAS TAKING SUPPLEMENT 09/09/2017 Test(s) Not Perfromed Chrome Cleaner Tello Almeida 018 Lipid Ord30 CHOL 134 mg/dL 04/11/2017 Lipid Ord30 HDL 63.0 mg/dl 04/11/2017 Lipid Ord30 TRIG 45 mg/dL 04/11/2017 Lipid Ord30 LDL 62 mg/dL 04/11/2017 Lipid Ord30 C/HDL 2.1 Ratio 04/11/2017 Tsh Ord6 hTSH II 2.07 uIU/mL 04/11/2017 Body Fluid Crystals Source RIGHT ELBOW 6 Body Fluid Crystals CRYSTALS, BODY FLUID 02/18/2016 Uric Acid Body Fluid 636543 URIC ACID-FLUID 4.3 mg/dL 02/18/2016 Metabolic Ord15 [...] Ord15 CALCIUM 9.1 mg/dL 02/05/2016 Comp Metabolic Ska575 NA 129 mEq/L 10/08/2015 Comp Metabolic Ptx575 K 4.7 mEq/L 10/08/2015 Comp Metabolic Nqk059 CL 98 mEq/L 10/08/2015 Comp Metabolic Ygv293 CO2 28.0 mEq/L 10/08/2015 Comp Metabolic Ayp950 AN ION GAP 8 10/08/2015 Comp Metabolic Mah049 GL UCOSE 84 mg/dL 10/08/2015 Comp Metabolic Mjg094 Cr eat 1.3 mg/dL 10/08/2015 Comp Metabolic Ipv624 eG FR 56 ml/min/1.73m2 10/07 Comp Metabolic Qdd222 BUN 23 mg/dL 10/08/2015 Comp Metabolic Qnl183 B/ C Ratio 17.8 Ratio 10/08/2015 Comp Metabolic Git384 CA LCIUM 9.3 mg/dL 10/08/2015 Comp Metabolic Ygw351 AL K PHOS 68 U/L 10/08/2015 Comp Metabolic Clx508 T(SGOT) 24 U/L 10/08/2015 Comp Metabolic Aam235 AL T(SGPT) 15 U/L 10/08/2015 Comp Metabolic Jyc547 BI LI T 0.5 mg/dL 10/08/2015 Comp Metabolic Yyr499 AL BUMIN 4.0 g/dL 10/08/2015 Comp Metabolic Cvs827 TP RO 5.9 g/dL 10/08/2015 Comp Metabolic Kqh254 GL OB 1.9 g/dL 10/08/2015 Comp Metabolic Lmb181 A/ G Ratio 2.1 Ratio 10/08/2015 Comp Metabolic Gun214 Os mo 262 mOsmo 10/08/2015 Lipid Ord30 [...] Ord30 C/HDL 2.3 Ratio 05/07/2015 Comp Metabolic Una495 NA 132 mEq/L 05/07/2015 Comp Metabolic Hnp323 K 4.4 mEq/L 05/07/2015 Comp Metabolic Avt366 CL 97 mEq/L 05/07/2015 Comp Metabolic Swl728 CO2 30.0 mEq/L 05/07/2015 Comp Metabolic Hav280 AN ION GAP 9 05/07/2015 Comp Metabolic Zsd471 GL UCOSE 78 mg/dL 05/07/2015 Comp Metabolic Jjj585 Cr eat 1.2 mg/dL 05/07/2015 Comp Metabolic Gdx080 eG FR 60 ml/min/1.73m2 05/07 Comp Metabolic Tlw466 BUN 25 mg/dL 05/07/2015 Comp Metabolic Vtz928 B/ C Ratio 20.3 Ratio 05/07/2015 Comp Metabolic Oyv561 CA LCIUM 9.6 mg/dL 05/07/2015 Comp Metabolic Ies326 AL K PHOS 70 U/L 05/07/2015 Comp Metabolic Hht827 T(SGOT) 27 U/L 05/07/2015 Comp Metabolic Eqw834 AL T(SGPT) 20 U/L 05/07/2015 Comp Metabolic Pdg589 BI LI T 0.4 mg/dL 05/07/2015 Comp Metabolic Qfj073 AL BUMIN 4.0 g/dL 05/07/2015 Comp Metabolic Rpr835 TP RO 5.8 g/dL 05/07/2015 Comp Metabolic Qqf953 GL OB 1.8 g/dL 05/07/2015 Comp Metabolic Zmd719 A/ G Ratio 2.3 Ratio 05/07/2015 Comp Metabolic Hdd969 Os mo 268 mOsmo 05/07/2015 Cbc With [...] hTSH II 4.07 uIU/mL 05/07/2015 Comp Metabolic Opf640 NA 134 mEq/L 12/10/2014 Comp Metabolic Bce735 K 4.8 mEq/L 12/10/2014 Comp Metabolic Ocb117 CL 101 mEq/L 12/10/2014 Comp Metabolic Vsg175 CO2 30.0 mEq/L 12/10/2014 Comp Metabolic Nmm106 AN ION GAP 8 12/10/2014 Comp Metabolic Bao135 GL UCOSE 85 mg/dL 12/10/2014 Comp Metabolic Qei916 Cr eat 1.2 mg/dL 12/10/2014 Comp Metabolic Kwl600 eG FR 65 ml/min/1.73m2 12/10 Comp Metabolic Lwg832 BUN 25 mg/dL 12/10/2014 Comp Metabolic Ndu760 B/ C Ratio 21.7 Ratio 12/10/2014 Comp Metabolic Lqo690 CA LCIUM 9.5 mg/dL 12/10/2014 Comp Metabolic Kgn411 AL K PHOS 76 U/L 12/10/2014 Comp Metabolic Pgb177 T(SGOT) 27 U/L 12/10/2014 Comp Metabolic Eay282 AL T(SGPT) 18 U/L 12/10/2014 Comp Metabolic Zsd428 BI LI T 0.5 mg/dL 12/10/2014 Comp Metabolic Kpm565 AL BUMIN 4.1 g/dL 12/10/2014 Comp Metabolic Aeb065 TP RO 5.7 g/dL 12/10/2014 Comp Metabolic Gml251 GL OB 1.6 g/dL 12/10/2014 Comp Metabolic Xrj833 A/ G Ratio 2.6 Ratio 12/10/2014 Comp Metabolic Kat378 Os mo 272 mOsmo 12/10/2014 B12 Arl095 B12 1011.00 pg/ml 12/10/2014 Lipid Ord30 CHOL [...] Differential Ord2 RDW 14.3 % 12/10/2014 CBC 0158971 WBC 4.1 10e9/L 02/19/2013 CBC 4459347 RBC 4.39 10e12/L 02/19/2013 CBC 7378671 HGB 14.1 g/dL 02/19/2013 CBC 9611197 HCT DET 41.0 % 02/19/2013 CBC 0722133 MCV 93.4 fL 02/19/2013 CBC 6429862 MCH 32.1 pg 02/19/2013 CBC 1423552 MCHC 34.4 g/dL 02/19/2013 CBC 2298858 PLT 151 10e9/L 02/19/2013 CBC 2855663 MPV 11.8 fL 02/19/2013 CBC 3296597 YOVANNY % 63.2 % 02/19/2013 CBC 0650285 LY % 22.9 % 02/19/2013 CBC 6137520 MON % 11.5 % 02/19/2013 CBC 6349902 EOS % 2.2 % 02/19/2013 CBC 9768692 BASO % 0.2 % 02/19/2013 CBC 0948213 RDW 13.8 % 02/19/2013 CBC 4771982 ABS YOVANNY 2.59 10e9/L 02/19/2013 CBC 2010473 ABS LYMPH 0.94 10e9/L 02/19/2013 CBC 5039974 ABS MONO 0.47 10e9/L 02/19/2013 CBC 0618464 ABS EOS 0.09 10e9/L 02/19/2013 CBC 8531091 ABS BASO 0.01 10e9/L 02/19/2013 CBC 2592223 RDW-SD 46.0 fL 02/19/2013 TSH 1511838 TSH 2.094 uIU/ML 02/19/2013 FREE T4 8085564 FREE T4 1.18 NG/DL 02/19/2013 GFR CALC 3192373 GFR AA >60 ML/MIN 02/19/2013 GFR CALC 6857231 GFR NON -AA >60 ML/MIN 02/19/2013 CHEM 14 4211352 AST 30 U/L 02/19/2013 CHEM 14 0317809 ALT 19 IU/L 02/19/2013 CHEM 14 8474364 BUN 21 MG/DL 02/19/2013 CHEM 14 9939219 ALBUMIN 4.4 GM/DL 02/19/2013 CHEM 14 0848640 CHLORIDE 94 MMOL/L 02/19/2013 CHEM 14 3974535 BILI TOT 0.5 MG/DL 02/19/2013 CHEM 14 4813909 ALK PHOS 75 U/L 02/19/2013 CHEM 14 4057752 SODIUM 133 MMOL/L 02/19/2013 CHEM 14 2075644 CREATINI NE 1.07 MG/DL 02/19/2013 CHEM 14 3303086 CALCIUM 9.6 MG/DL 02/19/2013 CHEM 14 7530940 POTASSIUM 4.6 MMOL/L 02/19/2013 CHEM 14 3004563 PROT TOT 6.1 GM/DL 02/19/2013 CHEM 14 6740605 GLUCOSE 94 MG/DL 02/19/2013 CHEM 14 1871314 BICARB 31 MMOL/L 02/19/2013 CHEM 14 2276451 ANION GAP 8 MEQ/L 02/19/2013 UA 50918 Specific [place] 1.015 DateTime(Free Text in Aprima ) UA 48515 PH 6 DateTime(Free Text in Aprima ) UA 57959 GLUCOSE neg DateTime(Free Text in Aprima ) UA 97101 Protein neg DateTime(Free Text in Aprima ) UA 81793 Blood neg DateTime(Free Text in ) UA 89194 Bilirubin neg DateTime(Free Text in ) UA 69013 Ketones neg DateTime(Free Text in ) UA 86170 Urobilinogen neg DateTime(Free Text in Aprima ) UA 88626 Nitrite neg DateTime(Free Text in Aprima ) UA 34661 Leukocytes neg DateTime(Free Text in ) Review of Systems System Result Effective Dates Constitutional recent illness 12/14/2018 Constitutional No chills [...] No mental status change 11/14/2017 Psychiatric anxiety 070 01/2018 Psychiatric disturbances of memory 11/14/2017 Constitutional [...] Neurologic No pain, back 07/26/2014 Psychiatric anxiety 07/08 Psychiatric depression 0 07/26/2014 Constitutional recent illness [...] nourished 01/12/2018 None Full Exam - General 1995 Eyes conjunctiva/eyelids Overall: conjunctiva clear 01/12/2018 None [...] lips 2017 None Full Exam - General 1995 Ears/Nose/Throat [...] time 04/26/2016 None Full Exam - General [facility] Psychiatric mood and affect Overall: normal mood [...] masses 06/23/2011 None Full Exam - General 1995 Ears/Nose/Throat [...] Exam - General 1995 Eyes conjunctiva/eyelids Overall: eyelids normal 01/15/2011 None [...] - General 1995 Lymphatic neck nodes Overall: posterior cervical chain [...] VACC PRSV FREE I NC ANTIG CPT-4: 15976 02/08/2018 URINALYSIS NONAUTO W /O SCOPE CPT-4: 13883 09/26/2017 ADMIN INFLUENZA VIRU S VAC CPT-4: G0008 01/25/2017 FLU VACC PRSV FREE I NC ANTIG CPT-4: 84471 01/25/2017 THER/PROPH/DIAG INJ SC/IM CPT-4: 72500 11/25/2016 TRIAMCINOLONE ACET I [place] NOS CPT-4: J3301 11/25/2016 DRAIN/INJECT JOINT/B URSA CPT-4: 33044 02/17/2016 IMMUNIZATION ADMIN CPT- 4: 60701 05/06/2015 PNEUMOCOCCAL VACC 13 TIFFANIE IM Formatting Model/CDA Sections, Assigned to/Celia Minaya SNOMED CT: 70456236 CPT-4: 97363[place] 05/06/2015 ADMIN INFLUENZA VIRU S VAC CPT-4: G0008 02/19/2015 FLU VACC 4 TIFFANIE 3 YRS PLUS IM Formatting Model/CDA Sections, Assigned to SNOMED CT: 85213144 CPT-4: 47427Kxkhxot 02/19/2015 URINALYSIS NONAUTO W /O SCOPE CPT-4: 75165 05/23/2014 ADMIN INFLUENZA VIRU S VAC CPT-4: G0008 03/26/2014 FLU VAC NO PRSV 4 VA L 3 YRS+ Assigned to/Celia Minaya CPT-4: 30333Ctfjekr 03/26/2014 PRESCRIP TRANSMIT A ERX SY CPT-4: G8553 04/04/2013 ROUTINE VENIPUNCTURE CPT-4: 26810 02/19/2013 ADMIN INFLUENZA VIRU S VAC CPT-4: G0008 02/06/2013 FLULAVAL VACC, 3 YRS & >, IM CPT-4: Q2036 02/06/2013 32572 EST. PATIENT, LEVEL IV CPT-4: 81345 06/19/2012 PRESCRIP TRANSMIT A ERX SY CPT-4: G8553 06/19/2012 PRESCRIP TRANSMIT A ERX SY CPT-4: G8553 03/20/2012 PRESCRIP TRANSMIT A ERX SY CPT-4: G8553 06/23/2011 IMMUNIZATION ADMIN CPT- 4: 39386 02/25/2011 ZOSTER VACC SC (No lloyd stephens, patient supplied vaccine) CPT-4: 75881AN 02/25/2011 ADMIN PNEUMOCOCCAL V ACCINE SNOMED CT: 60511965 CPT-4: G0009 02/16/2011 Pneumococcal Polysac charide Vaccine, 23-Valent, Ad CPT-4: 10834 02/16/2011 ADMIN INFLUENZA VIRU S VAC CPT-4: G0008 02/09/2011 FLULAVAL VACC, 3 YRS & >, IM CPT-4: Q2036 02/09/2011 PRESCRIP TRANSMIT A ERX SY CPT-4: G8553 02/01/2011 URINALYSIS NONAUTO W /O SCOPE CPT-4: 73033 01/27/2011 Vital Signs Date Vital 12/14/2018 Blood Pressure 1: 142/82 Code: 8480-6 BMI: 20.2 Code: 78534-3 Heart Rate 1: 68 bpm Height: 5'9" SpO2: 92% Weight: 137 lbs 08/17/2018 Blood Pressure 1: 138/68 Code: 8480-6 BMI: 20.4 Code: 81787-4 Heart Rate 1: 76 bpm Height: 5'9" Weight: 138 lbs 05/18/2018 Blood Pressure 1: 142/64 Code: 8480-6 BMI: 19.9 Code: 69753-6 Heart Rate 1: 52 bpm Height: 5'9" SpO2: 98% Weight: 135 lbs 04/13/2018 Blood Pressure 1: 128/58 Code: 8480-6 BMI: 21.0 Code: 94089-6 Heart Rate 1: 83 bpm Height: 5'9" SpO2: 94% Weight: 142 lbs 02/08/2018 Blood Pressure 1: 136/76 Code: 8480-6 BMI: 19.9 Code: 73050-0 Heart Rate 1: 78 bpm Height: 5'9" SpO2: 99% Weight: 135 lbs 01/19/2018 Blood Pressure 1: 114/78 Code: 8480-6 BMI: 19.9 Code: 46092-1 Heart Rate 1: 80 bpm Height: 5'9" SpO2: 98% Weight: 135 lbs 01/12/2018 Blood Pressure 1: 130/78 Code: 8480-6 BMI: 19.8 Code: 89752-2 Heart Rate 1: 85 bpm Height: 5'9" SpO2: 97% Weight: 134 lbs 01/05/2018 Blood Pressure 1: 122/70 Code: 8480-6 BMI: 19.6 Code: 47285-5 Heart Rate 1: 87 bpm Height: 5'9" SpO2: 96% Weight: 133 lbs 11/14/2017 Blood Pressure 1: 130/70 Code: 8480-6 BMI: 19.5 Code: 88289-3 Heart Rate 1: 75 bpm Height: 5'9" SpO2: 98% Weight: 132 lbs 2017 Blood Pressure 1: 116/70 Code: 8480-6 BMI: 19.5 Code: 57013-7 Heart Rate 1: 55 bpm Height: 5'9" SpO2: 95% Weight: 132 lbs 10/13/2017 Blood Pressure 1: 130/70 Code: 8480-6 BMI: 19.3 Code: 25438-2 Heart Rate 1: 67 bpm Height: 5'9" SpO2: 98% Weight: 131 lbs 09/26/2017 Blood Pressure 1: 126/70 Code: 8480-6 BMI: 19.1 Code: 92670-3 Heart Rate 1: 66 bpm Height: 5'9" SpO2: 100% Weight: 129 lbs 8 oz 09/12/2017 Blood Pressure 1: 120/70 Code: 8480-6 BMI: 19.5 Code: 71445-5 Heart Rate 1: 83 bpm Height: 5'9" SpO2: 99% Weight: 132 lbs 09/09/2017 Blood Pressure 1: 126/70 Code: 8480-6 BMI: 19.3 Code: 74645-0 Heart Rate 1: 80 bpm Height: 5'9" SpO2: 98% Weight: 131 lbs 08/17/2017 Blood Pressure 1: 130/74 Code: 8480-6 BMI: 19.6 Code: 05031-4 Heart Rate 1: 72 bpm Height: 5'9" SpO2: 98% Weight: 133 lbs 07/20/2017 Blood Pressure 1: 124/62 Code: 8480-6 BMI: 19.8 Code: 99928-8 Heart Rate 1: 65 bpm Height: 5'9" SpO2: 96% Weight: 134 lbs 07/01/2017 Blood Pressure 1: 134/64 Code: 8480-6 BMI: 21.0 Code: 13062-6 Height: 5'9" Weight: 142 lbs 06/21/2017 Blood Pressure 1: 142/80 Code: 8480-6 BMI: 21.0 Code: 75150-0 Heart Rate 1: 63 bpm Height: 5'9" SpO2: 98% Weight: 142 lbs 03/21/2017 Blood Pressure 1: 128/66 Code: 8480-6 BMI: 20.8 Code: 73960-8 Heart Rate 1: 61 bpm Height: 5'9" SpO2: 98% Weight: 141 lbs 03/08/2017 Blood Pressure 1: 134/68 Code: 8480-6 BMI: 20.4 Code: 41905-1 Heart Rate 1: 56 bpm Height: 5'9" SpO2: 99% Weight: 138 lbs 01/25/2017 Blood Pressure 1: 98/62 Code: 8480-6 BMI: 20.6 Code: 63900-0 Heart Rate 1: 71 bpm Height: 5'9" SpO2: 97% Weight: 139 lbs 8 oz 12/20/2016 Blood Pressure 1: 120/68 Code: 8480-6 BMI: 20.4 Code: 08978-7 Heart Rate 1: 70 bpm Height: 5'9" [...] 1: 120/60 Code: 8480-6 BMI: 20.7 Code: 44562-0 Heart Rate 1: 74 bpm Height: 5'9" SpO2: 95% Weight: 140 lbs 08/23/2016 Blood Pressure 1: 118/68 Code: 8480-6 BMI: 20.8 Code: 75328-3 Heart Rate 1: 54 bpm Height: 5'9" SpO2: 97% Weight: 141 lbs 04/26/2016 Blood Pressure 1: 108/64 Code: 8480-6 BMI: 21.0 Code: 34132-2 Heart Rate 1: 62 bpm Height: 5'9" SpO2: 95% Weight: 142 lbs 02/17/2016 Blood Pressure 1: 138/80 Code: 8480-6 BMI: 20.2 Code: 36827-0 Heart Rate 1: 76 bpm Height: 5'9" SpO2: 97% Weight: 137 lbs 02/09/2016 Blood Pressure 1: 140/76 Code: 8480-6 BMI: 20.2 Code: 45999-5 Heart Rate 1: 72 bpm Height: 5'9" SpO2: 96% Weight: 137 lbs 02/03/2016 Blood Pressure 1: 136/80 Code: 8480-6 BMI: 20.7 Code: 72093-8 Heart Rate 1: 86 bpm Height: 5'9" SpO2: 96% Weight: 140 lbs 01/26/2016 Blood Pressure 1: 144/78 Code: 8480-6 BMI: 20.7 Code: 49405-7 Heart Rate 1: 73 bpm Height: 5'9" SpO2: 97% Temperature: 37.0 (C ) / 98.6 (F) Weight: 140 lbs 01/21/2016 Blood Pressure 1: 116/62 Code: 8480-6 BMI: 20.4 Code: 59991-6 Heart Rate 1: 66 bpm Height: 5'9" SpO2: 97% Weight: 138 lbs 12/29/2015 Blood Pressure 1: 130/74 Code: 8480-6 BMI: 20.4 Code: 82071-2 Heart Rate 1: 51 bpm Height: 5'9" SpO2: 98% Weight: 138 lbs 09/02/2015 Blood Pressure 1: 126/60 Code: 8480-6 BMI: 22.3 Code: 10102-9 Heart Rate 1: 55 bpm Height: 5'9" SpO2: 96% Weight: 151 lbs 05/06/2015 Blood Pressure 1: 132/72 Code: 8480-6 BMI: 21.0 Code: 81629-3 Heart Rate 1: 63 bpm Height: 5'9" SpO2: 97% Weight: 142 lbs 03/05/2015 Blood Pressure 1: 130/68 Code: 8480-6 BMI: 21.0 Code: 52767-4 Heart Rate 1: 61 bpm Height: 5'9" SpO2: 96% Weight: 142 lbs 12/04/2014 Blood Pressure 1: 122/64 Code: 8480-6 BMI: 21.3 Code: 68369-7 Heart Rate 1: 72 bpm Height: 5'9" Weight: 144 lbs 09/24/2014 Blood Pressure 1: 142/80 Code: 8480-6 BMI: 20.4 Code: 57729-0 Heart Rate 1: 80 bpm Height: 5'9" Weight: 138 lbs 09/09/2014 Blood Pressure 1: 122/74 Code: 8480-6 BMI: 20.5 Code: 98664-8 Heart Rate 1: 64 bpm Height: 5'9" Weight: 139 lbs 07/26/2014 Blood Pressure 1: 136/82 Code: 8480-6 BMI: 20.4 Code: 19292-0 Heart Rate 1: 87 bpm Height: 5'9" SpO2: 92% Weight: 138 lbs 07/10/2014 Blood Pressure 1: 130/74 Code: 8480-6 BMI: 21.1 Code: 33166-7 Heart Rate 1: 64 bpm Height: 5'9" Weight: 143 lbs 06/06/2014 Blood Pressure 1: 142/88 Code: 8480-6 BMI: 20.4 Code: 59082-7 Heart Rate 1: 68 bpm Height: 5'9" Weight: 138 lbs 05/29/2014 Blood Pressure 1: 108/72 Code: 8480-6 BMI: 20.5 Code: 27373-4 Heart Rate 1: 60 bpm Height: 5'9" Weight: 139 lbs 05/20/2014 Blood Pressure 1: 140/72 Code: 8480-6 BMI: 21.6 Code: 65958-5 Heart Rate 1: 60 bpm Height: 5'9" SpO2: 98% Temperature: 36.2 (C ) / 97.2 (F) Weight: 146 lbs 03/25/2014 Blood Pressure 1: 128/60 Code: 8480-6 BMI: 21.4 Code: 81575-5 Heart Rate 1: 62 bpm Height: 5'9" Weight: 145 lbs 02/08/2014 Blood Pressure 1: 136/82 Code: 8480-6 BMI: 21.3 Code: 86713-5 Heart Rate 1: 68 bpm Height: 5'9" Weight: 144 lbs 12/24/2013 Blood Pressure 1: 122/76 Code: 8480-6 BMI: 21.6 Code: 57577-0 Heart Rate 1: 58 bpm Height: 5'9" Weight: 146 lbs 11/20/2013 Blood Pressure 1: 112/62 Code: 8480-6 BMI: 20.7 Code: 44539-5 Heart Rate 1: 56 bpm Height: 5'9" Weight: 140 lbs 10/30/2013 Blood Pressure 1: 130/68 Code: 8480-6 BMI: 20.1 Code: 50593-8 Heart Rate 1: 68 bpm Height: 5'9" SpO2: 96% Weight: 136 lbs 10/08/2013 Blood Pressure 1: 128/72 Code: 8480-6 BMI: 20.8 Code: 60127-1 Heart Rate 1: 60 bpm Height: 5'9" Temperature: 36.6 (C ) / 97.8 (F) Weight: 141 lbs 06/18/2013 Blood Pressure 1: 124/78 Code: 8480-6 BMI: 20.8 Code: 72433-0 Heart Rate 1: 64 bpm Height: 5'9" Weight: 141 lbs 04/04/2013 Blood Pressure 1: 138/60 Code: 8480-6 BMI: 20.8 Code: 99328-5 Heart Rate 1: 56 bpm Height: 5'9" Weight: 141 lbs 02/19/2013 Blood Pressure 1: 152/74 Code: 8480-6 BMI: 21.0 Code: 26969-7 Heart Rate 1: 60 bpm Height: 5'9" Weight: 142 lbs 10/16/2012 Blood Pressure 1: 122/70 Code: 8480-6 BMI: 20.8 Code: 24397-8 Heart Rate 1: 64 bpm Height: 5'9" Weight: 141 lbs 06/19/2012 Blood Pressure 1: 120/72 Code: 8480-6 BMI: 21.1 Code: 84375-9 Heart Rate 1: 60 bpm Height: 5'9" Weight: 143 lbs 03/20/2012 Blood Pressure 1: 114/76 Code: 8480-6 Heart Rate 1: 60 bpm Respiratory Rate: 16 bpm Weight: 143 lbs 01/24/2012 Blood Pressure 1: 134/70 Code: 8480-6 Heart Rate 1: 64 bpm Weight: 143 lbs 12/20/2011 Blood Pressure 1: 98/72 Code: 8480-6 BMI: 21.1 Code: 24083-0 Heart Rate 1: 60 bpm Height: 5'9" Respiratory Rate: 16 bpm Weight: 143 lbs 12/09/2011 Blood Pressure 1: 110/60 Code: 8480-6 Heart Rate 1: 66 bpm SpO2: 98% Weight: 141 lbs 08/25/2011 Blood Pressure 1: 112/70 Code: 8480-6 BMI: 20.8 Code: 93160-1 Heart Rate 1: 54 bpm Height: 5'9" Respiratory Rate: 16 bpm Weight: 141 lbs 06/23/2011 Blood Pressure 1: 126/64 Code: 8480-6 Heart Rate 1: 60 bpm Respiratory Rate: 16 bpm Weight: 142 lbs 04/19/2011 Blood Pressure 1: 124/64 Code: 8480-6 BMI: 21.1 Code: 99731-2 Heart Rate 1: 64 bpm Height: 5'9" Respiratory Rate: 16 bpm Weight: 143 lbs 03/23/2011 Blood Pressure 1: 137/71 Code: 8480-6 Heart Rate 1: 57 bpm 03/08/2011 Blood Pressure 1: 154/70 Code: 8480-6 BMI: 20.8 Code: 58604-9 Heart Rate 1: 60 bpm Height: 5'9" Respiratory Rate: 16 bpm Weight: 141 lbs 03/01/2011 Blood Pressure 1: 178/80 Code: 8480-6 Blood Pressure 2: 168/70 Code: 8480-6 BMI: 24.1 Code: 37466-4 Heart Rate 1: 60 bpm Height: 5'9" Respiratory Rate: 16 bpm Weight: 163 lbs 02/01/2011 Blood Pressure 1: 162/84 Code: 8480-6 Heart Rate 1: 60 bpm Respiratory Rate: 16 bpm Weight: 144 lbs 01/27/2011 Blood Pressure 1: 138/54 Code: 8480-6 BMI: 21.1 Code: 65690-6 Heart Rate 1: 68 bpm Height: 5'9" Respiratory Rate: 16 bpm Weight: 143 lbs 01/26/2011 Blood Pressure 1: 148/86 Code: 8480-6 BMI: 21.3 Code: 11141-8 Heart Rate 1: 74 bpm Height: 5'9" Weight: 144 lbs 01/15/2011 Blood Pressure 1: 136/76 Code: 8480-6 BMI: 20.5 Code: 96895-4 Heart Rate 1: 70 bpm Height: 5'10" Weight: 141 lbs 01/06/2011 Blood Pressure 1: 148/72 Code: 8480-6 BMI: 20.2 Code: 06542-0 Heart Rate 1: 72 bpm Height: 5'10" Respiratory Rate: 12 bpm Weight: 139 lbs Functional Status No Functional Status data History of Present Illness Symptom Name Status Resu lt Effective Date Notes Location thoracic spine 12/14/2018 None Location Cervical [...] chr onic 02/08/2018 None hypertension [facility] hypertension 02/08/2018 None hypertension Onset and Resolution [...] abdominal distension 01/19/2018 None hypertension Quality [facility] hypertension 01/12/2018 None hypertension Onset and Resolution [...] factors 10/13/2017 None Hospital Follow Up _ Ot er: new onset type 2 diabetes mellitus [...] loss 09/26/2017 None Hospital Follow Up _ Ot er: new onset type 2 diabetes mellitus [...] nausea 07/26/2014 None Hospital Follow Up _ [facility] 07/10/2014 Patient reports [...] sleep 02/08/2014 None cough Location in the roat 02/08/2014 None cough Onset of Symptom [...] Encounters Encounter Performer Loca tion Codes Date ([id number]) [id number] EST. P ATIENT, LEVEL IV Diagnosis: Essential (primary) hypertension[ICD10: I10] Diagnosis: Cervicalgia[ICD10: M54.2] Ale Carlos MD, [facility] CPT-4: 42658 12/14/2018 ([id number]) 24108 EST. P ATIENT, LEVEL IV Diagnosis: Essential (primary) hypertension[ICD10: I10] Diagnosis: Gastro-esophageal reflux disease without esophagitis[ICD10: K21.9] Diagnosis: Alzheimer's disease with late onset[ICD10: G30.1] Ale Carlos MD, C CPT-4: 99445 08/17/2018 ([id number]) 23068 EST. 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 CPT-4: 19339 05/18/2018 ([id number]) 09719 EST. P ATIENT, LEVEL III Diagnosis: Essential (primary) hypertension[ICD10: I10] Ale Carlos MD, LL C CPT-4: 49863 04/13/2018 ([id number]) 89698 EST. P ATIENT, LEVEL IV Diagnosis: Irritable bowel syndrome with constipation[ICD10: K58.1] Diagnosis: Other lesions of oral mucosa[ICD10: K13.79] Diagnosis: Dry mouth, unspecified[ICD10: R68.2] Diagnosis: Encounter for immunization[ICD10: Z23] Diagnosis: Essential (primary) hypertension[ICD10: I10] Ale Carlos MD, [facility] CPT-4: 63736 02/08/2018 ([id number]) 53496 EST. P ATIENT, LEVEL III Diagnosis: Slow transit constipation[ICD10: K59.01] Diagnosis: Dry mouth, unspecified[ICD10: R68.2] Nelly Carlos MD, [facility] CPT-4: 52191 01/19/2018 ([id number]) Miscellaneou s no charge Diagnosis: Acute pharyngitis, unspecified[ICD10: J02.9] Nelly Carlos MD, [facility] CPT-4: 96684 01/13/2018 ([id number]) 65312 EST. P ATIENT, LEVEL III Diagnosis: Candidal stomatitis[ICD10: B37.0] Diagnosis: Cough[ICD10: R05] Nelly Carlos MD, [facility] CPT-4: 76319 01/12/2018 ([id number]) 24300 EST. P ATIENT, LEVEL IV Diagnosis: Essential (primary) hypertension[ICD10: I10] Diagnosis: Generalized anxiety disorder[ICD10: F41.1] Diagnosis: Major depressive disorder, single episode, mild[ICD10: F32.0] Diagnosis: Slow transit constipation[ICD10: K59.01] Ale Carlos MD, [facility] CPT-4: 18663 01/05/2018 ([id number]) 19505 EST. P ATIENT, LEVEL IV Diagnosis: Irritable bowel syndrome with constipation[ICD10: K58.1] Diagnosis: Malignant neoplasm of prostate[ICD10: C61] Ale Carlos MD, [facility] CPT-4: 47842 11/14/2017 18660 EST. PATIENT, LEVEL IV Diagnosis: Slow transit constipation[ICD10: K59.01] Diagnosis: Gastro-esophageal reflux disease without esophagitis[ICD10: K21.9] Ruchi Carlos MD, [facility] CPT-4: 48673 2017 ([id number]) 06653 EST. P ATIENT, LEVEL IV Diagnosis: Essential (primary) hypertension[ICD10: I10] Diagnosis: Slow transit constipation[ICD10: K59.01] Diagnosis: Underweight[ICD10: R63.6] Diagnosis: Gastro-esophageal reflux disease without esophagitis[ICD10: K21.9] Ale Carlos MD, [facility] CPT-4: 61738 10/13/2017 ([id number]) 73437 EST. P ATIENT, LEVEL IV Diagnosis: Slow transit constipation[ICD10: K59.01] Diagnosis: Gastroparesis[ICD10: K31.84] Diagnosis: Gastro-esophageal reflux disease without esophagitis[ICD10: K21.9] Diagnosis: Dysuria[ICD10: R30.0] Ale Carlos MD, [facility] CPT-4: 97435 09/26/2017 ([id number]) 49631 EST. P ATIENT, LEVEL IV Diagnosis: Other abnormal glucose[ICD10: R73.09] Diagnosis: Slow transit constipation[ICD10: K59.01] Ale Carlos MD, C CPT-4: 24943 09/12/2017 69541 EST. PATIENT, LEVEL III Diagnosis: Other fatigue[ICD10: R53.83] Ruchi Carlos MD, [facility] CPT-4: 60173 09/09/2017 ([id number]) 75296 EST. P ATIENT, LEVEL IV Diagnosis: Slow transit constipation[ICD10: K59.01] Diagnosis: Irritable bowel syndrome with constipation[ICD10: K58.1] Diagnosis: Essential (primary) hypertension[ICD10: I10] Ale Carlos MD, C CPT-4: 94394 08/17/2017 ([id number]) 10326 EST. P ATIENT, LEVEL III Diagnosis: Slow transit constipation[ICD10: K59.01] Diagnosis: Gastroparesis[ICD10: K31.84] Ale Carlos MD, [facility] CPT-4: 34847 07/20/2017 17351 EST. PATIENT, LEVEL III Diagnosis: Irritable bowel syndrome with constipation[ICD10: K58.1] Ruchi Carlos MD, [facility] CPT-4: 63119 07/01/2017 ([id number]) 52392 EST. P ATIENT, LEVEL IV Diagnosis: Essential (primary) hypertension[ICD10: I10] Diagnosis: Gas pain[ICD10: R14.1] Diagnosis: Generalized anxiety disorder[ICD10: F41.1] Diagnosis: Cervicalgia[ICD10: M54.2] Diagnosis: Pain in thoracic spine[ICD10: M54.6] Diagnosis: Unsteadiness on feet[ICD10: R26.81] Ale Carlos MD, [facility] CPT- 4: 52072 06/21/2017 ([id number]) 92193 EST. P ATIENT, LEVEL III Diagnosis: Essential (primary) hypertension[ICD10: I10] Ale Carlos MD, [facility] CPT-4: 90782 03/21/2017 42491 EST. PATIENT, LEVEL III Diagnosis: Other allergic rhinitis[ICD10: J30.89] Nelly Carlos MD, [facility] CPT-4: 31078 03/08/2017 ([id number]) 00343 EST. P ATIENT, LEVEL III Diagnosis: Encounter for immunization[ICD10: Z23] Diagnosis: Other hypotension[ICD10: I95.89] Ale Carlos MD, [facility] CPT-4: 27424 01/25/2017 ([id number]) 99791 EST. P ATIENT, LEVEL III Diagnosis: Essential (primary) hypertension[ICD10: I10] Diagnosis: Acute recurrent maxillary sinusitis[ICD10: J01.01] Ale Carlos MD, C CPT-4: 88163 12/20/2016 ([id number]) 88378 EST. P ATIENT, LEVEL III Diagnosis: Acute recurrent ethmoidal sinusitis[ICD10: J01.21] Ale Carlos MD, C CPT-4: 78386 12/01/2016 ([id number]) 47731 EST. P ATIENT, LEVEL III Diagnosis: Bronchitis, not specified as acute or chronic[ICD10: J40] Diagnosis: Cough[ICD10: R05] Ale Carlos MD, [facility] CPT-4: 85442 11/25/2016 ([id number]) 64893 EST. P ATIENT, LEVEL III Diagnosis: Cough[ICD10: R05] Diagnosis: Bronchitis, not specified as acute or chronic[ICD10: J40] Diagnosis: Candidal esophagitis[ICD10: B37.81] Ale Carlos MD, [facility] CPT- 4: 42086 11/18/2016 ([id number]) 58231 EST. P ATIENT, LEVEL IV Diagnosis: Essential (primary) hypertension[ICD10: I10] Diagnosis: Mild cognitive impairment, so stated[ICD10: G31.84] Ale Carlos MD, C CPT-4: 21605 08/23/2016 ([id number]) 23971 EST. P ATIENT, LEVEL III Diagnosis: Essential (primary) hypertension[ICD10: I10] Ale Carlos MD, [facility] CPT-4: 88338 04/26/2016 ([id number]) Miscellaneou s no charge Diagnosis: Olecranon bursitis, right elbow[ICD10: M70.21] Nelly Carlos MD, [facility] CPT-4: 65839 02/09/2016 ([id number]) 21152 EST. P ATIENT, LEVEL III Diagnosis: Olecranon bursitis, right elbow[ICD10: M70.21] Nelly Carlos MD, [facility] CPT-4: 08755 02/03/2016 ([id number]) 95474 EST. P ATIENT, LEVEL III Diagnosis: Generalized abdominal tenderness[ICD10: R10.817] Ale Carlos MD, C CPT-4: 28526 01/26/2016 64771 EST. PATIENT, LEVEL IV Diagnosis: Other allergic rhinitis[ICD10: J30.89] Ruchi Carlos MD, [facility] CPT-4: 82864 01/21/2016 ([id number]) 94307 EST. P ATIENT, LEVEL IV Diagnosis: Essential (primary) hypertension[ICD10: I10] Diagnosis: Hypo-osmolality and hyponatremia[ICD10: E87.1] Ale Carlos MD, [facility] CPT-4: 82078 12/29/2015 ([id number]) 66046 EST. P ATIENT, LEVEL IV Diagnosis: Essential (primary) hypertension[ICD10: I10] Diagnosis: Mild cognitive impairment, so stated[ICD10: G31.84] Ale Carlos MD, [facility] CPT-4: 37865 09/02/2015 ([id number]) 90704 EST. P ATIENT, LEVEL IV Diagnosis: Mixed hyperlipidemia[ICD10: E78.2] Diagnosis: Generalized anxiety disorder[ICD10: F41.1] Diagnosis: Mild cognitive impairment, so stated[ICD10: G31.84] Diagnosis: Essential (primary) hypertension[ICD10: I10] Diagnosis: Encounter for immunization[ICD10: Z23] Ale Carlos MD, [facility] CPT-4: 41843 05/06/2015 ([id number]) 12181 EST. 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 CPT-4: 27437 03/05/2015 ([id number]) 42704 EST. P ATIENT, LEVEL IV Diagnosis: ESSENTIAL HYPERTENSION[ICD9: 401.9] Diagnosis: GENERALIZED ANXIETY DISEASE[ICD9: 300.02] Diagnosis: MILD COGNITIVE IMPAIREMT[ICD9: 331.83] Diagnosis: IRRITABLE COLON[ICD9: 564.1] Ale Carlos MD, [facility] CPT-4: 00428 12/04/2014 ([id number]) 90543 EST. P ATIENT, LEVEL IV Diagnosis: Abdominal pain[ICD9: 789.00] Diagnosis: GENERALIZED ANXIETY DISEASE[ICD9: 300.02] Diagnosis: Hyponatremia[ICD9: 276.1] Diagnosis: ESSENTIAL HYPERTENSION[ICD9: 401.9] Nelly Carlos MD, [facility] CPT-4: 00637 09/24/2014 ([id number]) 71205 EST. P ATIENT, LEVEL IV Diagnosis: ESSENTIAL HYPERTENSION[ICD9: 401.9] Diagnosis: Osteoarthritis[ICD9: 715.90] Diagnosis: Mild cognitive impairment with memory loss[ICD9: 331.83] Ale Carlos MD, [facility] CPT-4: 30513 09/09/2014 ([id number]) 37539 EST. P ATIENT, LEVEL III Diagnosis: GENERALIZED ANXIETY DISEASE[ICD9: 300.02] Diagnosis: Depression[ICD9: 311] Ale Carlos MD, [facility] CPT-4: 05801 07/26/2014 ([id number]) 61323 EST. P ATIENT, LEVEL IV Diagnosis: ESSENTIAL HYPERTENSION[ICD9: 401.9] Diagnosis: GENERALIZED ANXIETY DISEASE[ICD9: 300.02] Diagnosis: MILD COGNITIVE IMPAIREMT[ICD9: 331.83] Ale Carlos MD, [facility] CPT-4: 94071 07/10/2014 ([id number]) 76967 EST. P ATIENT, LEVEL IV Diagnosis: Dizziness[ICD9: 780.4] Diagnosis: GENERALIZED ANXIETY DISEASE[ICD9: 300.02] Diagnosis: Depression[ICD9: 311] Diagnosis: ESSENTIAL HYPERTENSION[ICD9: 401.9] Diagnosis: Urinary frequency[ICD9: 788.41] Ale Carlos MD, [facility] CPT-4: 00327 06/06/2014 ([id number]) 47396 EST. P ATIENT, LEVEL IV Diagnosis: ESSENTIAL HYPERTENSION[ICD9: 401.9] Diagnosis: GENERALIZED ANXIETY DISEASE[ICD9: 300.02] Diagnosis: Mild cognitive impairment with memory loss[ICD9: 331.83] Ale Carlos MD, [facility] CPT-4: 46492 05/29/2014 ([id number]) 36554 EST. P ATIENT, LEVEL IV Diagnosis: Pneumonia[ICD9: 486] Diagnosis: COUGH[ICD9: 786.2] Diagnosis: Hyponatremia[ICD9: 276.1] Diagnosis: ALLERGIC RHINITIS[ICD9: 477.9] Ale Carlos MD, [facility] CPT-4: 68609 05/20/2014 ([id number]) 42004 EST. P ATIENT, LEVEL III Diagnosis: ESSENTIAL HYPERTENSION[ICD9: 401.9] Diagnosis: Cough[ICD9: 786.2] Ale Carlos MD, [facility] CPT-4: 60506 03/25/2014 ([id number]) 53102 EST. P ATIENT, LEVEL III Diagnosis: COUGH[ICD9: 786.2] Diagnosis: ALLERGIC RHINITIS[ICD9: 477.9] Nelly Carlos MD, [facility] CPT- 4: 67599 02/08/2014 ([id number]) 40054 EST. P ATIENT, LEVEL III Diagnosis: ESSENTIAL HYPERTENSION[ICD9: 401.9] Diagnosis: Nasal congestion[ICD9: 478.19] Ale Carlos MD, [facility] CPT-4: 61081 12/24/2013 ([id number]) 07558 EST. P ATIENT, LEVEL III Diagnosis: Seasonal allergies[ICD9: 477.9] Diagnosis: Nasal congestion[ICD9: 478.19] Diagnosis: ABNORMAL LOSS OF WEIGHT[ICD9: 783.21] Ale Carlos MD, [facility] CPT-4: 47144 11/20/2013 ([id number]) 70396 EST. P ATIENT, LEVEL III Diagnosis: ABNORMAL LOSS OF WEIGHT[ICD9: 783.21] Diagnosis: MALAISE AND FATIGUE[ICD9: 780.79] Diagnosis: Hyponatremia[ICD9: 276.1] Nelly Carlos MD, [facility] CPT- 4: 79854 10/30/2013 ([id number]) 39047 EST. P ATIENT, LEVEL III Diagnosis: Acute maxillary sinusitis[ICD9: 461.0] Diagnosis: COUGH[ICD9: 786.2] Ale Carlos MD, [facility] CPT-4: 90201 10/08/2013 ([id number]) 43722 EST. P ATIENT, LEVEL IV Diagnosis: ESSENTIAL HYPERTENSION[SNOMED: 90853621] Diagnosis: GENERALIZED ANXIETY DISEASE[ICD9: 300.02] Diagnosis: OSTEOARTH NOS-UNSPEC[ICD9: 715.90] Diagnosis: Coronary artery disease[ICD9: 414.00] Ale Carlos MD, [facility] CPT-4: 43954 06/18/2013 ([id number]) 27061 EST. P ATIENT, LEVEL III Diagnosis: ESSENTIAL HYPERTENSION[SNOMED: 85873243] Ale Carlos MD, [facility] CPT-4: 48326 04/04/2013 ([id number]) 81080 EST. P ATIENT, LEVEL IV Diagnosis: ESSENTIAL HYPERTENSION[SNOMED: 03335669] Diagnosis: Leukopenia[ICD9: 288.50] Diagnosis: Encounter for long-term (current) use of other medications[ICD9: V58.69] Ale Carlos MD, [facility] CPT-4: 86578 02/19/2013 ([id number]) 76856 EST. P ATIENT, LEVEL IV Diagnosis: ESSENTIAL HYPERTENSION[SNOMED: 14005379] Diagnosis: MILD COGNITIVE IMPAIREMT[ICD9: 331.83] Ale Carlos MD, [facility] CPT-4: 46004 10/16/2012 ([id number]) 91583 EST. P ATIENT, LEVEL IV Diagnosis: ESSENTIAL HYPERTENSION[SNOMED: 03728223] Diagnosis: GENERALIZED ANXIETY DISEASE[ICD9: 300.02] Diagnosis: IRRITABLE COLON[ICD9: 564.1] Ale Carlos MD, [facility] CPT-4: 71824 03/20/2012 71958 EST. PATIENT, LEVEL IV Diagnosis: ESSENTIAL HYPERTENSION[SNOMED: 89411803] Diagnosis: Osteoarthritis[ICD9: 715.90] Diagnosis: HYPERLIPIDEMIA[ICD9: 272.4] Ale Carlos MD, [facility] CPT-4: 70509 01/24/2012 72715 EST. PATIENT, LEVEL IV Diagnosis: ESSENTIAL HYPERTENSION[SNOMED: 32282163] Diagnosis: BPH W URINARY OBS/LUTS[ICD9: 600.01] Ale Carlos MD, [facility] CPT-4: 90017 12/20/2011 ([id number]) 86059 EST. P ATIENT, LEVEL III Diagnosis: Lump in the groin[ICD9: 789.30] Ale Carlos MD, [facility] CPT-4: 25810 12/09/2011 ([id number]) 55957 EST. P ATIENT, LEVEL IV Diagnosis: ESSENTIAL HYPERTENSION[SNOMED: 20825672] Diagnosis: Mild cognitive impairment[ICD9: 331.83] Ale Carlos MD, [facility] CPT-4: 38172 08/25/2011 ([id number]) 51738 EST. P ATIENT, LEVEL IV Diagnosis: ESSENTIAL HYPERTENSION[SNOMED: 48549548] Diagnosis: GENERALIZED ANXIETY DISEASE[ICD9: 300.02] Diagnosis: MILD COGNITIVE IMPAIREMT[ICD9: 331.83] Diagnosis: IRRITABLE COLON[ICD9: 564.1] Ale Carlos MD, [facility] CPT-4: 93207 06/23/2011 ([id number]) 67022 EST. 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 PATIENT, LEVEL I Diagnosis: ESSENTIAL HYPERTENSION[SNOMED: 64303313] Ale Carlos MD, [facility] CPT-4: 08841 03/23/2011 93025 EST. PATIENT, LEVEL III Diagnosis: ESSENTIAL HYPERTENSION[SNOMED: 90625746] Diagnosis: Laceration of finger, index[ICD9: 883.0] Ale Carlos MD, [facility] CPT-4: 88268 03/08/2011 50307 EST. PATIENT, LEVEL III Diagnosis: ESSENTIAL HYPERTENSION[SNOMED: 26412387] Diagnosis: Irritable bowel syndrome (IBS)[ICD9: 564.1] Ale Carlos MD, [facility] CPT-4: 77681 03/01/2011 95838 EST. PATIENT, LEVEL IV Diagnosis: Mild cognitive impairment with memory loss[ICD9: 331.83] Diagnosis: GENERALIZED ANXIETY DISEASE[ICD9: 300.02] Diagnosis: Bruising[ICD9: 924.9] Diagnosis: HYDROCELE[ICD9: 603.9] Ale Carlos MD, [facility] CPT-4: 38963 02/01/2011 37204 EST. PATIENT, LEVEL III Diagnosis: Testicular pain[ICD9: 608.9] Diagnosis: GENERALIZED ANXIETY DISEASE[ICD9: 300.02] Nelly Carlos MD, [facility] CPT-4: 91918 01/27/2011 59787 EST. PATIENT, LEVEL III Diagnosis: Arm bruise[ICD9: 923.9] Nelly Keen Ale Carlos MD, [facility] CPT-4: 18954 01/26/2011 OFFICE VISIT, NEW - LEVEL 4 Diagnosis: DIARRHEA[ICD9: 787.91] Diagnosis: Elevated liver function tests[ICD9: 790.6] Diagnosis: Abdominal discomfort[ICD9: 789.00] Ale Calros MD, [facility] CPT- 4: 11338 01/06/2011 Plan of Care Planned Activity Notes C odes Status Date Visit Plan: Hypertension - well con trolled [...] to get stiff or painful again. 12/14/2018 Patient Education: Patient Medication Summary Completed [...] this medication. 08/17/2018 Appointment: Ale Carlos WPtel: [phone] [facility] (15 min) Moderate 08/17/2018 Patient Education: Patient [...] nail debridement. 05/18/2018 Appointment: Ale Carlos WPtel: [phone] [facility] (15 min) Moderate 05/18/2018 Patient Education: Patient [...] mouth discomfort. 04/13/2018 Appointment: Ale Carlos WPtel: [phone] [facility] (30 min) Complex 04/13/2018 Patient Education: Patient [...] GI upset. 02/08/2018 Appointment: Ale Carlos WPtel: [facility] (30 min) Complex 02/08/2018 Patient Education: Patient Medication Summary Completed 02/08/2018 Patient Education: Hypertension Completed 02/08/2018 Appointment: Nelly Keen WPtel: [facility]5 [phone] (15 min) Moderate 02/02/2018 Visit Plan: Wjakklikasdp-yuygfgw-zy start trulance 3mg daily Dry mouth-biotene mouth spray 01/19/2018 Appointment: Ale Carlos WPtel: [facility] (30 min) Complex 01/19/2018 Patient Education: Patient [...] or concerns 01/12/2018 Appointment: Nelly Keen WPtel: [phone] (15 min) Moderate 01/12/2018 Patient Education: [...] be helping his symptoms. 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 I have recommended that he is to eat 1/2 a sandwich with his ensure at bedtime. 01/05/2018 Appointment: Ale Carlos WPtel: [phone] [facility] (15 min) Moderate 01/05/2018 Patient Education: Patient Medication Summary Completed 01/05/2018 Appointment: Ale Carlos WPtel: [phone] [facility] (30 min) Complex 01/04/2018 Visit Plan: Irritable [...] 11/03/2017 Care Plan: Referral Order SNOMED-CT : 631374858 Pending 10/28/2017 Visit Plan: Constipation - uncontro [...] not improving. 2017 Appointment: Ruchi Agee WPtel: [phone] [facility] (15 min) Moderate 2017 Patient Education: [...] portion size. 10/13/2017 Appointment: Ale Carlos [facility]Ptel[facility] ([facility] Complex 10/13/2017 Patient Education: [...] the medication. 09/26/2017 Appointment: Ale Carlos WPtel: [facility] (15 min) Moderate 09/26/2017 Patient Education: Patient Medication Summary Completed 09/26/2017 Appointment: Ale Carlos WPtel: [facility] (30 min) Complex 09/14/2017 Visit Plan: Constipation [...] the ER. 09/12/2017 Appointment: Ale Carlos WPtel: [address] [place], [place] [phone] (30 min) Complex 09/12/2017 Patient Education: Patient Medication Summary Completed 09/12/2017 Visit Plan: Ongoing fatigue - persi stent - will check labs and treat as indicated - pt is to notify clinic if symptoms do not improve, if they worsen, or with any changes, questions, or concerns. 09/09/2017 Appointment: Ruchi Agee WPtel: [facility] (30 min) Complex 09/09/2017 Patient Education: [...] at home. 08/17/2017 Appointment: Ale Carlos WPtel: [facility] (15 min) Moderate 08/17/2017 Patient Education: Patient [...] regular foods. 07/20/2017 Appointment: Ale Carlos WPtel: [facility] [place] (30 min) Complex 07/20/2017 Appointment: Ale Carlos WPtel: [facility] [place] (30 min) Complex 07/20/2017 Patient Education: Patient Medication Summary Completed 07/20/2017 Appointment: Ale Carlos WPtel: [facility] [place] (30 min) Complex 07/19/2017 Appointment: Ale Carlos WPtel: [facility] [place] (15 min) Moderate 07/18/2017 Visit [...] this regimen. 07/01/2017 Appointment: Ruchi Agee WPtel: [facility] [place] (30 min) Complex 07/01/2017 Appointment: Ruchi Agee WPtel: [facility] [place] (30 min) Complex 07/01/2017 Patient Education: Patient Medication Summary Completed 07/01/2017 Visit Plan: Neck and upper back reji n and gait unsteadiness - referral to Ul[facility] castañeda for upper and low back pain and left arm pain and have gait eval. get Aspercreme from [employer] for your upper neck/upper back. Abdominal upset/cramping - lactaid pills - take before you drink milk or eat cheese or ice cream or yogurt use gas-ex one pill three times daily Chronic anxiety - stable - continue with current management. 06/21/2017 Appointment: Ale Carlos WPtel: [facility] [place] (30 min) Complex 06/21/2017 Patient Education: Patient [...] at home. 03/21/2017 Appointment: Ale Carlos WPtel: [facility] [place] (30 min) Complex 03/21/2017 Patient Education: Patient [...] allergy spray. 03/08/2017 Appointment: Nelly Keen WPtel: [phone] [phone] [place] (30 min) Complex 03/08/2017 Patient [...] flu shot 01/25/2017 Appointment: Ale Carlos WPtel: [facility] (30 min) Complex 01/25/2017 Patient Education: [...] not improving. 12/20/2016 Appointment: Ale Carlos WPtel: [facility] (30 min) Complex 12/20/2016 Patient Education: Patient Medication Summary Completed 12/20/2016 Patient Education: Hypertension Completed 12/20/2016 Appointment: Ruchi Agee WPtel: [facility] [facility] - Annual Wellness Visit 12/03/2016 Visit Plan: [...] acutely worsen. 11/25/2016 Appointment: Ale Carlos WPtel: [facility] (15 min) Moderate 11/25/2016 Patient Education: Patient [...] have thrush. 11/18/2016 Appointment: Ale Carlos WPtel: [phone] [facility] (15 min) Moderate 11/18/2016 Patient Education: Patient [...] and namenda. labs to be done from [facility] 08/23/2016 Appointment: Ale Carlos WPtel: [phone] [facility] (30 min) Complex 08/23/2016 Patient Education: Patient [...] at home. 04/26/2016 Appointment: [phone] ([facility]) Complex 04/26/2016 Patient Education: Patient Medication Summary Completed 04/26/2016 Visit Plan: Joint effusion - recomm ended drainage and referral to orthopedic surgeon for surgical debridement of bursa 02/17/2016 Appointment: [facility]Ptel[phone] (30 min) Complex 02/17/2016 Patient Education: Patient Medication Summary Completed 02/17/2016 Visit Plan: Bursitis-right elbow-dr healy today in the office- increase anti inflammatories for the next 5 days as directed-call if symptoms do not resolve, swelling returns or new symptoms develop-patient verbalized understanding of plan. 02/09/2016 Appointment: Nelly Keen WPtel: [address] [place], [place] [phone] (30 min) Complex 02/09/2016 Patient Education: Patient Medication Summary Completed 02/09/2016 Patient Education: Patient Medication Summary Completed 02/05/2016 Care Plan: Metabolic Pending 02/05/2016 Visit Plan: Bursitis-right elbow-dr healy today in the office- increase anti inflammatories for the next 5 days as directed-call if symptoms do not resolve, swelling returns or new symptoms develop-patient verbalized understanding of plan. 02/03/2016 Appointment: Nelly Keen WPtel: [phone] (30 min) Complex 02/03/2016 Patient Education: Patient Medication Summary Completed 02/03/2016 Patient Education: Patient Medication Summary Completed 01/30/2016 Care Plan: Metabolic Due on Pending 01/30/2016 Visit Plan: Abdominal pain - nausea - Pt to have IV fluids at hospital 01/26/2016 Appointment: Ale Carlos WPtel: [address] [place], [place] [address] (30 min) Complex 01/26/2016 Patient Education: Patient [...] allergy spray. 01/21/2016 Appointment: Nelly Keen WPtel: [phone] (30 min) Complex 01/21/2016 Patient Education: [...] treatment. 09/02/2015 Appointment: [facility]el[phone] (15 min) Moderate 09/02/2015 Patient Education: [...] today 05/06/2015 Appointment: [phone] (15 min) Moderate 05/06/2015 Patient Education: Patient Medication Summary Completed 05/06/2015 Patient Education: Hypertension Completed 05/06/2015 Care Plan: COMPLETE CBC AUTOMATED LOINC : 17170-4 Ordered 05/06/2015 Visit Plan: Hypertension - well [...] current medications. 03/05/2015 Appointment: Ale Carlos WPtel: [facility] (30 min) Complex 03/05/2015 Patient Education: Patient [...] -has improved. 12/04/2014 Appointment: [facility]Ptel[phone] Follow up 12/04/2014 Patient Education: Patient [...] Plan: CT ABD & PELV 1/> [facility] : 28598-6 Ordered 09/24/2014 Visit Plan: Hypertension - well [...] THAT HE SHOULD NOT BE DRIVING TO [place] 07/26/2014 Appointment: Sick 07/26/2014 Appointment: Sick 07/26/2014 [...] medication list. 07/10/2014 Appointment: Ale Carlos WPtel: [facility] Follow up 07/10/2014 Patient Education: Patient Medication Summary Completed 07/10/2014 Patient Education: Hypertension Completed 07/10/2014 Appointment: Ale Carlos WPtel: [address] [place], [place] [phone] Follow up 06/20/2014 Appointment: Ale Carlos WPtel: [address] [place], [place] [phone] Follow up 06/10/2014 Visit Plan: Anxiety and [...] in blood pressure readings at home. Urinary btellecis-UGL-fradyq flomax to bedtime Dizziness-stop hydrocodone and ativan [...] 3 WEEKS 05/29/2014 Appointment: Ale Carlos WPtel: [facility] S[facility] 05/29/2014 Patient Education: Patient Medication Summary Completed 05/29/2014 Patient Education: Hypertension Completed 05/29/2014 Appointment: [facility]Ptel[phone] Lab Draw 05/23/2014 Patient Education: Patient Medication Summary Completed 05/23/2014 Visit Plan: Pneumonia - Pt has been diagnosed with pneumonia by physical exam. A chest xray has been ordered as have antibiotics. The pt is aware of the diagnosis and the need for acute treatment of this illness. A mwdekian-bnunc-feodcde flonase nasal spray Hyponatremia-increase gatorade as directed [...] for acute treatment of this illness. A ezlkoawn-rgqmp-rqubzpy flonase nasal spray Hyponatremia-increase gatorade as directed 05/20/2014 Patient Education: Patient Medication Summary Completed 05/20/2014 Appointment: [phone] [facility] [place] Injection 03/26/2014 Patient Education: Patient Medication [...] Merlos. 03/25/2014 Appointment: [phone] [facility] Follow up 03/25/2014 Patient Education: Patient Medication Summary Completed 03/25/2014 Patient Education: Hypertension Completed 03/25/2014 Visit Plan: Sbxen-hclmltdga-auqwnma laryngeal reflux-RX for protonix (patient is on [...] home. 12/24/2013 Appointment: Ale Carlos WPtel: [address] [place], [place] [id number] Follow up 12/24/2013 Patient Education: Patient Medication [...] portion size. 11/20/2013 Appointment: Ale Carlos WPtel: [address] [place], [place] [id number] Follow up 11/20/2013 Patient Education: Patient Medication Summary Completed 11/20/2013 Appointment: Ale Carlos WPtel: [address] [place], [place] [phone] Follow up 11/06/2013 Visit Plan: Weight loss-increase po rtions-add snacks in the morning and afternoon-follow up in 3 weeks for weight check Low sodium-check labs-restart gatorade Duiaxfx-trxeqb-qmycq labs and UA 10/30/2013 Patient Education: Patient Medication Summary Completed 10/30/2013 Appointment: Ale Carlos WPtel: [address] [place], [place] [phone] [place] Follow up 10/16/2013 Visit Plan: Sinusitis - [...] Dr. Merlos. 06/18/2013 Appointment: Ale Carlos WPtel: [facility] [place] Follow up 06/18/2013 Patient Education: Patient [...] concerns. 04/04/2013 Appointment: [facility]el[facility] [phone] [facility] [place] Follow up 04/04/2013 Patient Education: Patient Medication [...] report. 02/19/2013 Appointment: Ale Carlos WPtel: [phone] [facility] Follow up 02/19/2013 Patient Education: Patient Medication [...] loss. 10/16/2012 Appointment: Ale Carlos WPtel: [phone] [facility] Follow up 10/16/2012 Patient Education: Patient Medication [...] colon return. 06/19/2012 Appointment: Ale Carlos WPtel: [facility] Follow up 06/19/2012 Patient Education: Patient Medication [...] the bentyl. 03/20/2012 Appointment: Ale Carlos WPtel: [facility] Follow up 03/20/2012 Patient Education: Patient Medication Summary Completed 03/20/2012 Patient Education: High Blood Pressure: Essential Hypertension Completed 03/20/2012 Appointment: Ale Carlos WPtel: [facility] Follow up 02/22/2012 Visit Plan: Hypertension - [...] as needed. 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 I anticipate it will be at least 4-6 months before he can be off of the plavix and aspirin for additonal procedures unless it is of extreme urgency. 12/20/2011 Appointment: Ale Carlos WPtel: [facility] [place] Follow up 12/20/2011 Patient Education: Patient Medication Summary Completed 12/20/2011 Patient Education: High Blood Pressure: Essential Hypertension Completed 12/20/2011 Appointment: Ale Carlos WPtel: [facility] [place] Other 12/13/2011 Visit Plan: Pain in groin post hear t cath with increased discomfort and increased size - will order an ultrasound for today. 12/09/2011 Appointment: Ale Carlos WPtel: [facility] [facility] 12/09/2011 Patient Education: Patient Medication [...] either medication. 08/25/2011 Appointment: Ale Carlos WPtel: [address] [place] [address] [place] Other 08/25/2011 Patient Education: Patient Medication Summary Completed 08/25/2011 Patient Education: High Blood Pressure: Essential Hypertension Completed 08/25/2011 Visit Plan: Hypertension - well evan martines - continue with current medications, continue with [...] low doses. 06/23/2011 Appointment: Ale Carlos WPtel: [address] [place], [place] [phone] [place] Other 06/23/2011 Patient Education: Patient Medication Summary Completed 06/23/2011 Patient Education: High Blood Pressure: Essential Hypertension Completed 06/23/2011 Appointment: Ale Carlos WPtel: [address] [place], [place] [phone] Other 04/26/2011 Visit Plan: Hypertension - well evan martines - continue with current medications, continue with [...] seeds, etc. 04/19/2011 Appointment: Ale Carlos WPtel: [facility] Other 04/19/2011 Patient Education: Patient Medication Summary Completed 04/19/2011 Patient Education: High Blood Pressure: Essential Hypertension Completed 04/19/2011 Patient Education: Diverticulosis Diet Completed 04/19/2011 Appointment: Nelly Keen WPtel: [phone] Other 03/23/2011 Patient Education: Patient Medication Summary Completed 03/23/2011 Patient Education: High Blood Pressure: Essential Hypertension Completed 03/23/2011 Visit Plan: Record blood pressure a nd heart rate at home and drop the readings by the office in two weeks. No change in medications today. Laceration - removed suture today - pt to call if any complications arise. 03/08/2011 Appointment: Ale Carlos WPtel: [facility] Other 03/08/2011 Patient Education: Patient Medication Summary [...] day. 03/01/2011 Appointment: Ale Carlos WPtel: [phone] [facility] [place] Other 03/01/2011 Patient Education: Patient Medication Summary Completed 03/01/2011 Patient Education: High Blood Pressure: Essential Hypertension Completed 03/01/2011 [facility]ment: [phone] [phone] [place] Injection 02/25/2011 Patient Education: Patient Medication Summary Completed 02/25/2011 Appointment: [facility]Ptel[facility] [phone] [facility] [place] Injection 02/16/2011 Patient Education: Patient Medication Summary Completed 02/16/2011 Appointment: Ale Carlos WPtel: [facility] [place] Injection 02/09/2011 Patient Education: Patient Medication Summary Completed 02/09/2011 Appointment: Ale Carlos WPtel: [facility] [place] Follow up 02/02/2011 Visit Plan: [...] with his son - Kenji Dash in [place]. Upon our conversation nfat-vos-ppoyz, Kenji vocalized concerns for his Dad's memory. He stated that he has noticed his father not being as quick in his cognitive functioning, he has noticed some concerns with driving as well. He states that he will discuss these concerns with his parents and other siblings. 02/01/2011 Appointment: Ale Carlos WPtel: [facility] Other 02/01/2011 Patient Education: Patient Medication Summary [...] as needed. 01/27/2011 Appointment: Ale Carlos WPtel: [address] [place], [place] [phone] New Patient 01/27/2011 Patient Education: Patient Medication Summary Completed 01/27/2011 Visit Plan: Bruising/hematoma left arm-discussed natural and expected course of this diagnosis and to alert me if symptoms do not follow expected course or if any worse, Continue with ice/heat as needed for disc omfort. Call for any concerns. 01/26/2011 Appointment: Nelly Keen WPtel: [facility] [place] [address] Other 01/26/2011 Patient Education: Patient Medication Summary [...] course. 01/15/2011 Appointment: Nelly Keen WPtel: [phone] [facility] [place] [address] Other 01/15/2011 Patient Education: Patient Medication Summary [...] diet. 01/06/2011 Appointment: Ale [facility]Ptel: [phone] [facility] [place] New Patient 01/06/2011 Patient Education: Patient Medication Summary Completed 01/06/2011 Referral: External, Ordering Provider Referral Relationship Instructions Comment . Pneumonia - Pt has been diagnosed with pneumonia by physical exam. A chest xray has been ordered as have antibiotics. The pt is aware of the diagnosis and the need for acute treatment of this illness. Utwoukpzo-drpnz-zbqnvho flonase nasal spray Hyponatremia-increase gatorade as directed [...] need for acute treatment of this illness. Wswflkvoz-dtrba-tbpnlur flonase nasal spray Hyponatremia-increase gatorade as directed Increase your loraze anmol to 1/2 tablet [...] needed. . Hypertension - wel l controlled at [...] and call pt with report. INCREASE YOUR MELOXI CAM (MOBIC) TO 1/2 [...] -call with any questions or concerns . Bruising/hematoma left arm-discussed natural and expected course of this diagnosis and to alert me if symptoms do not follow expected course or if any worse, Continue with ice/heat as needed for discomfort. Call for any concerns. Discussed with Dr. Aaliyah pringle - He [...] night. Underweight - increase portion size. . Hypertension - wel l [...] anxiety and memory loss. Nasal spray- use twi ce daily, one [...] in the nasal steroid allergy spray. . Irritable bowel sy ndrome with constipation [...] new treatments which can avoid rectal irritation. . Joint effusion - r ecommended drainage and referral to orthopedic surgeon for surgical debridement of bursa CHECK LABS-CBC, CMP, UA WITH C&S IF INDICATED . Weight loss-increase portions-add snac ks in the morning and afternoon-follow up in 3 weeks for weight check Low sodium-check labs-restart gatorade Yajfzqm-kkbhxa-ruefq labs and UA . Hypertension and C oronary artery disease- [...] have the biopsy until okayed by his perioperative educator.. I anticipate it will be at least [...] - you have thrush. . Hypertension - wel l controlled - [...] referral to Dr. Yates for nail debridement. . Hypertension - wel l controlled - [...] prevnar 13 injection today I sent a prescriptio n of [facility] - if it is expensive get [...] in the nasal steroid allergy spray. . Constipation - unc ontrolled - I [...] if symptoms not improved on this regimen. . Constipation - unc ontrolled - pt [...] if the symptoms are not improving. . Hypertension - unc ontrolled - the [...] times a day. . Abdominal pain - n ausea - Pt to have IV fluids at hospital stop the multivitami n stop the calcium [...] be helping his symptoms. 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 I have recommended that he is [...] twice HTN-well controlled-no change in treatment . Ekixp-qkmzzczia-uu spect laryngeal reflux-RX for protonix (patient is [...] to get stiff or painful again. . Hypertension - wel l controlled - [...] the lactose free diet. get Aspercreme from [facility] for your upper neck/upper back. lactaid pills - take before you drink milk or eat cheese or ice cream or yogurt use gas-ex one pill three times daily . Neck and upper back pain and gait unst eadiness - referral to [facility] for upper and low back pain and left arm pain and have gait eval. get Aspercreme from [facility] for your upper neck/upper back. Abdominal upset/cramping [...] IN THE EVENING OF 01/15/11 Appointment [address] [place] [address] Carlos. Recommend Lactobacillus 1 orally [...] with his son - Kenji Dash in [place]. Upon our conversation hnia-xzj-nlgag, Kenji vocalized concerns for his Dad's memory. He stated that he has noticed his father not being as quick in his cognitive functioning, he has noticed some concerns with driving as well. He states that he will discuss these concerns with his parents and other siblings. stop losartan - [facility] k blood pressure and heart rate [...] spray -it is over the counter . Hoyirpyxcrrj-bkitnjy-zcpajea trulance 3mg daily Dry mouth-biotene mouth spray [...] diet, and monitor symptoms of GI upset. decrease Protonix (p antoprazole) to ONE pill [...] back to regular foods. . Hypertension - wel l controlled - [...] THAT HE SHOULD NOT BE DRIVING TO [place] Pt is to try 1/2 pil l [...] in blood pressure readings at home. Urinary rkbevndrk-SUM-uzdqak flomax to bedtime Dizziness-stop hydrocodone and ativan [...]
--- OUTSIDE RECORDS SUMMARY | 2019-07-16 07:17 | XMS REPORT | CCD ---
Author Author Kenneth Carlos Organization lAe Carlos MD, 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 Production Name Role Phone Ale Carlos PP Unavailable CCM Unavailable Summary Purpose Interface Exchange Insurance Providers Payer name Policy type / Coverage type Covered alliance party ID Effective Begin Date Effective End Date WPS Medicare Part B Medicare Part B [id number] Unknown Unknown [facility] icare Part B [id number] Unknown Unk nown Family history Runs in the family Diagnosis Age At Onset No Family Disease Entered N/A Mother Diagnosis Age At Onset No Family Disease Entered N/A Father Diagnosis Age At Onset Heart disease Unknown Social History Social History Element Codes Description Effective Dates Number of children Unknown 3 ([place], [place], [place]) 10/14/19 18 Living arrangements Unknown House 01/11/2011 Number of adults in household Unknown 2 01/11/2011 Education level Unknown Post-Graduate PHD in chemistry 01/11/2011 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 ICD-10: G30.1 Active 08/17/2018 Unknown Essential (primary) hypertension ICD-9: 401.1 ICD-10: I10 Active 03/21/2017 Unknown Gastro-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 [...] Condition Codes Effectiv e Dates Condition Status 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 08/18/2018 No Stop Date Active clopidogrel 75 mg ta blet RxNorm: 469635 TAKE 1 TABLET BY MOUT H EVERY DAY 08/14/2018 12/11/2018 In active amlodipine 10 mg tablet RxNorm: 219852 TAKE 1 TABLET BY MOUTH EVERY DAY 07/14/2018 07/23/2018 In active clopidogrel 75 mg ta blet RxNorm: 290698 TAKE 1 TABLET BY MOUT H EVERY DAY 06/23/2018 12/19/2018 Ac tive Zantac 150 mg tablet RxNorm: 850272 1 TABLET(S) PO QAM 06/12/2018 01/07/2019 Active lisinopril 20 mg tablet RxNorm: 978330 TAKE 1 TABLET DAILY 06/05/2018 07/23/2018 Inactive triamterene 37.5 mg- hydrochlorothiazide 25 mg tablet RxNorm: 739558 1 Tablet(s) PO daily 05/18/2018 12/13/2018 Active cetirizine 10 mg tablet RxNorm: 0063320 TABLET(S) 1 TABLET(S) PO DAILY TO TAKE I ROXANNATEAD OF THE CLARITIN 03/13/2018 02/05/2019 Active amlodipine 10 mg tablet RxNorm: 473040 TAKE 1 TABLET BY MOUTH EVERY DAY 03/09/2018 07/23/2018 In active fluticasone 50 mcg/a ctuation nasal spray,suspension RxNorm: 1852279 1 Cedar NASAL BID 02/08/2018 No Stop Date Active fluticasone 50 mcg/a ctuation nasal spray,suspension RxNorm: 4725191 1 Cedar NASAL BID 02/08/2018 02/07/2018 Inactive Trulance 3 mg tablet RxNorm: 3491562 1 Tablet(s) PO QAM 01/19/2018 08/16/2018 Inactive cefdinir 300 mg capsule RxNorm: 456190 1 Capsule(s) PO BID 12/28/2017 01/03/2018 Inactive cefdinir 300 mg capsule RxNorm: 274961 1 Capsule(s) PO BID 12/28/2017 12/27/2017 Inactive clopidogrel 75 mg ta blet RxNorm: 735632 TAKE 1 TABLET BY MOUT H EVERY DAY 12/26/2017 06/22/2018 In active Namenda 10 mg tablet RxNorm: 703970 Tablet(s) TAKE 1 TABLET BY MOUTH TWICE D AILY. 12/15/2017 08/17/2018 Inactive Robinul 1 mg tablet RxNorm: 659942 1/2 Tablet(s) PO AC & HS 12/12/2017 12/14/2017 Inactive Robinul 1 mg tablet RxNorm: 904915 1/2 Tablet(s) PO AC & HS 12/12/2017 12/11/2017 Inactive donepezil 10 mg tablet RxNorm: 175504 1 TABLET(S) PO DAILY TAKE 1 TABLET BY MO UTH ONCE DAILY 12/08/2017 12/11/2017 Inactive Patient requests 90 days supply lisinopril 20 mg tablet RxNorm: 881924 TAKE 1 TABLET DAILY 12/05/2017 01/11/2018 Inactive Cymbalta 30 mg capsu le,delayed release RxNorm: 235081 1 Capsule(s) PO daily 12/05/2017 12/04/2017 In active Cymbalta 30 mg capsu le,delayed release RxNorm: 538191 1 Capsule(s) PO daily 12/05/2017 12/05/2017 In active Trulance 3 mg tablet RxNorm: 2651878 1 Tablet(s) PO daily 11/14/2017 12/13/2017 Inactive Linzess 145 mcg capsule RxNorm: 2866990 1 Capsule(s) PO daily 10/28/2017 12/14/2017 Inactive Zantac 150 mg tablet RxNorm: 425682 1 Tablet(s) PO QAM 10/13/2017 01/04/2018 Inactive mirtazapine 15 mg ta blet RxNorm: 814232 TAKE ONE TABLET BY MO UTH EVERY DAY 09/29/2017 09/23/2018 In active Mobic 15 mg tablet RxNorm: 156121 1/2 TABLET(S) DAILY 09/26/2017 12/19/2017 Inactive lisinopril 20 mg tablet RxNorm: 257483 1/2 Tablet(s) daily 09/13/2017 01/12/2018 Inactive amlodipine 10 mg tablet RxNorm: 842699 TAKE 1 TABLET BY MOUTH EVERY DAY 09/09/2017 08/07/2018 In active Reglan 5 mg tablet RxNorm: 202697 1/2 Tablet(s) PO TID may increase up to a full pill three times daily as needed for poor GI motility 07/20/2017 09/17/2017 Inactive Protonix 40 mg table t,delayed release RxNorm: 714203 1 Tablet(s) PO daily 07/04/2017 01/29/2018 In active clopidogrel 75 mg ta blet RxNorm: 511473 TAKE 1 TABLET BY MOUT H EVERY DAY 06/20/2017 12/16/2017 In active cetirizine 10 mg tablet RxNorm: 9147107 TABLET(S) 1 TABLET(S) PO DAILY TO TAKE I NSTEAD OF THE CLARITIN 06/06/2017 03/12/2018 Inactive lisinopril 20 mg tablet RxNorm: 593422 TAKE 1 TABLET DAILY 05/30/2017 09/12/2017 Inactive Mobic 15 mg tablet RxNorm: 845247 1/2 TABLET(S) DAILY 03/21/2017 09/16/2017 Inactive donepezil 10 mg tablet RxNorm: 249871 1 Tablet(s) PO daily TAKE 1 TABLET BY MO UTH ONCE DAILY 02/28/2017 11/24/2017 Inactive Patient requests 90 days supply Requip 0.25 mg tablet RxNorm: 917768 1 TABLET(S) PO BID 01/24/2017 01/04/2018 Inactive Patient requests 90 days supply clopidogrel 75 mg ta blet RxNorm: 485147 TAKE 1 TABLET BY MOUT H EVERY DAY 12/23/2016 06/19/2017 In active lisinopril 20 mg tablet RxNorm: 371696 TAKE 1 TABLET DAILY 11/26/2016 05/24/2017 Inactive Kenalog 40 mg/mL hugo pension for injection RxNorm: 7993325 Milliliter(s) Inj 11/25/2016 11/25/2016 In active cefdinir 300 mg capsule RxNorm: 599378 1 Capsule(s) PO BID 11/23/2016 11/27/2016 Inactive cefdinir 300 mg capsule RxNorm: 995981 1 Capsule(s) PO BID 11/23/2016 11/22/2016 Inactive nystatin 100,000 uni t/mL oral suspension RxNorm: 735318 5 Milliliter(s) PO QI D 11/18/2016 11/27/2016 In active azithromycin 250 mg tablet RxNorm: 906580 1 Tablet(s) PO UD 2 p ills on day #1 then one pill daily x 4 more days 11/18/2016 11/22/2016 Inactive Mobic 15 mg tablet RxNorm: 804408 1/2 TABLET(S) DAILY 10/28/2016 03/20/2017 Inactive citalopram 10 mg tablet RxNorm: 034706 TAKE 1 TABLET BY MOUTH EVERY DAY 10/07/2016 03/05/2017 In active Patient requests 90 days supply mirtazapine 15 mg ta blet RxNorm: 452508 TAKE ONE TABLET BY MO UTH EVERY DAY 10/06/2016 09/28/2017 In active mirtazapine 15 mg ta blet RxNorm: 949371 TAKE ONE TABLET BY MO UTH EVERY DAY 10/05/2016 10/05/2016 In active Patient requests 90 days supply amlodipine 10 mg tablet RxNorm: 285948 TAKE 1 TABLET BY MOUTH EVERY DAY 09/14/2016 01/24/2017 In active clopidogrel 75 mg ta blet RxNorm: 037429 TAKE 1 TABLET BY MOUT H EVERY DAY 06/28/2016 12/22/2016 In active lisinopril 20 mg tablet RxNorm: 106498 TAKE 1 TABLET DAILY 05/31/2016 11/25/2016 Inactive donepezil 10 mg tablet RxNorm: 935673 TAKE 1 TABLET BY MOUTH ONCE DAILY 05/11/2016 11/06/2016 In active donepezil 10 mg tablet RxNorm: 032184 TAKE 1 TABLET BY MOUTH ONCE DAILY 04/26/2016 02/28/2017 In active Mobic 15 mg tablet RxNorm: 144489 1/2 Tablet(s) daily 04/19/2016 10/15/2016 Inactive citalopram 10 mg tablet RxNorm: 968747 TAKE 1 TABLET BY MOUTH EVERY DAY 04/06/2016 04/25/2016 In active cetirizine 10 mg tablet RxNorm: 6228850 Tablet(s) 1 TABLET(S) PO DAILY TO TAKE I NSTEAD OF THE CLARITIN 03/30/2016 02/22/2017 Inactive amlodipine 10 mg tablet RxNorm: 638596 TAKE 1 TABLET BY MOUTH EVERY DAY 03/08/2016 01/24/2017 In active amlodipine 10 mg tablet RxNorm: 568202 1 Tablet(s) PO daily TAKE 1 TABLET BY MO UTH ONCE DAILY 03/03/2016 03/07/2016 Inactive Requip 0.25 mg tablet RxNorm: 087486 1 Tablet(s) PO BID 03/03/2016 09/13/2016 Inactive Mobic 15 mg tablet RxNorm: 134980 1 Tablet(s) daily not refilled on a 02/23/2016 04/18/2016 In active cetirizine 10 mg tablet RxNorm: 0258334 1 TABLET(S) PO DAILY TO TAKE INSTEAD OF THE CLARITIN 02/19/2016 03/19/2016 Inactive lisinopril 20 mg tablet RxNorm: 347373 TAKE 1 TABLET DAILY 02/18/2016 05/17/2016 Inactive Namenda 10 mg tablet RxNorm: 426743 Tablet(s) TAKE 1 TABLET BY MOUTH TWICE D AILY. 02/17/2016 12/14/2017 Inactive lisinopril 20 mg tablet RxNorm: 439613 TAKE 1 TABLET DAILY 01/23/2016 01/24/2017 Inactive cetirizine 10 mg tablet RxNorm: 0960465 1 Tablet(s) PO daily to take instead of the claritin 01/21/2016 02/18/2016 Inactive amlodipine 10 mg tablet RxNorm: 399009 1 Tablet(s) PO daily TAKE 1 TABLET BY MO UTH ONCE DAILY 12/02/2015 03/02/2016 Inactive clopidogrel 75 mg ta blet RxNorm: 082771 TAKE 1 TABLET BY MOUT H EVERY DAY 11/25/2015 05/22/2016 In active Mobic 15 mg tablet RxNorm: 965650 TAKE(1/2) TABLET DAILY. 11/17/2015 02/22/2016 Inactive lisinopril 20 mg tablet RxNorm: 380009 TAKE 1 TABLET DAILY 11/17/2015 01/15/2016 Inactive Mobic 15 mg tablet RxNorm: 307029 1/2 Tablet(s) PO daily TAKE (1/2) TABLET DAILY. 11/12/2015 11/16/2015 Inactive citalopram 10 mg tablet RxNorm: 339169 TAKE 1 TABLET BY MOUTH EVERY DAY 10/27/2015 04/05/2016 In active Requip 0.25 mg tablet RxNorm: 230997 1 Tablet(s) PO BID 10/15/2015 02/11/2016 Inactive Requip 0.25 mg tablet RxNorm: 804669 1 Tablet(s) PO BID 10/15/2015 10/14/2015 Inactive mirtazapine 15 mg ta blet RxNorm: 226540 1 Tablet(s) PO daily 09/08/2015 10/01/2016 Inactive donepezil 10 mg tablet RxNorm: 986736 TAKE 1 TABLET DAILY 09/01/2015 04/25/2016 Inactive amlodipine 10 mg tablet RxNorm: 137305 1 Tablet(s) PO daily TAKE 1 TABLET BY MO UT ONCE DAILY 08/18/2015 12/01/2015 Inactive clopidogrel 75 mg ta blet RxNorm: 616372 1 Tablet(s) PO daily TAKE 1 TABLET DAILY 05/20/2015 11/24/2015 In active Mobic 15 mg tablet RxNorm: 233502 Tablet(s) TAKE (1/2) TABLET DAILY. 04/23/2015 10/19/2015 In active lisinopril 20 mg tablet RxNorm: 255823 TAKE 1 TABLET DAILY 04/22/2015 11/16/2015 Inactive Mobic 15 mg tablet RxNorm: 623211 TAKE (1/2) TABLET DAILY. 04/22/2015 04/22/2015 Inactive sulfamethoxazole 400 mg-trimethoprim 80 mg tablet RxNorm: 752306 1/2 Tablet(s) PO nancy y 03/11/2015 04/09/2015 Inactive Vesicare 5 mg tablet RxNorm: 404573 1 Tablet(s) PO 03/11/2015 05/09/2015 Inactive Protonix 40 mg table t,delayed release RxNorm: 039888 1 Tablet(s) PO BID 03/05/2015 09/30/2015 In active ok to change from [address] Archana rivera clopidogrel 75 mg ta blet RxNorm: 878194 1 Tablet(s) PO daily TAKE 1 TABLET DAILY 02/20/2015 05/19/2015 In active Namenda 10 mg tablet RxNorm: 478447 Tablet(s) TAKE 1 TABLET BY MOUTH TWICE D AILY. 01/22/2015 02/16/2016 Inactive amlodipine 10 mg tablet RxNorm: 691740 TAKE 1 TABLET BY MOUTH ONCE DAILY 01/14/2015 08/17/2015 In active donepezil 10 mg tablet RxNorm: 858052 TAKE 1 TABLET DAILY 01/06/2015 08/31/2015 Inactive Levsin 0.125 mg tablet RxNorm: 6793782 1 Tablet(s) PO QID as needed FOR ABD REJI N 11/05/2014 12/03/2014 In active Mobic 15 mg tablet RxNorm: 799565 1/2 Tablet(s) daily TAKE (1/2) TABLET DA MOIZ. 10/01/2014 04/21/2015 Inactive ciprofloxacin 500 mg tablet RxNorm: 518628 1 Tablet(s) PO BID 09/27/2014 10/01/2014 Inactive Flagyl 500 mg tablet RxNorm: 105062 1 Tablet(s) PO TID 09/27/2014 10/03/2014 Inactive take probiotic BID donepezil 10 mg tablet RxNorm: 057651 1/2 Tablet(s) PO BID 09/24/2014 01/05/2015 Inactive lisinopril 20 mg tablet RxNorm: 394433 TAKE 1 TABLET DAILY 09/05/2014 04/21/2015 Inactive amlodipine 10 mg tablet RxNorm: 591290 1 Tablet(s) PO daily 09/02/2014 12/30/2014 Inactive mirtazapine 15 mg ta blet RxNorm: 316031 1 Tablet(s) PO daily 08/28/2014 09/07/2015 Inactive donepezil 10 mg tablet RxNorm: 801188 1 Tablet(s) PO daily 08/28/2014 09/23/2014 Inactive citalopram 10 mg tablet RxNorm: 417131 1 Tablet(s) PO daily 08/28/2014 03/25/2015 Inactive citalopram 10 mg tablet RxNorm: 333264 1 Tablet(s) PO daily 08/07/2014 08/27/2014 Inactive citalopram 10 mg tablet RxNorm: 991731 1 Tablet(s) PO daily 08/07/2014 08/06/2014 Inactive Flagyl 500 mg tablet RxNorm: 346095 1 Tablet(s) PO TID 08/02/2014 08/01/2014 Inactive take probiotic BID Flagyl 500 mg tablet RxNorm: 999583 1 Tablet(s) PO TID 08/02/2014 08/08/2014 Inactive take probiotic BID tamsulosin ER 0.4 mg capsule,extended release 24 hr RxNorm: 523257 1 Capsule(s) PO QHS 06/06/2014 03/10/2015 Inactive TAKE AT BEDTIME escitalopram 5 mg ta blet RxNorm: 783099 1 Tablet(s) PO QPM 06/06/2014 08/06/2014 Inactive doxycycline hyclate 100 mg tablet RxNorm: 768959 1 Tablet(s) PO BID 05/31/2014 05/30/2014 Inactive doxycycline hyclate 100 mg tablet RxNorm: 400028 1 Tablet(s) PO BID 05/31/2014 06/06/2014 Inactive please deliver if not picked by 3pm Aricept 5 mg tablet RxNorm: 851005 1 Tablet(s) PO BID 05/29/2014 08/27/2014 Inactive losartan 50 mg tablet RxNorm: 728956 1/2 Tablet(s) PO daily 05/29/2014 12/28/2015 Inactive clopidogrel 75 mg ta blet RxNorm: 557687 1 Tablet(s) PO daily 05/27/2014 05/26/2014 Inactive Mobic 15 mg tablet RxNorm: 577541 TAKE (1/2) TABLET DAILY. 05/27/2014 09/30/2014 Inactive clopidogrel 75 mg ta blet RxNorm: 390002 TAKE 1 TABLET DAILY 05/27/2014 02/19/2015 Inactive Mobic 15 mg tablet RxNorm: 861842 1/2 Tablet(s) PO daily TAKE (1/2) TABLET DAILY. 05/27/2014 05/26/2014 Inactive prednisone 20 mg tablet RxNorm: 834654 1 Tablet(s) PO BID 05/21/2014 05/25/2014 Inactive albuterol sulfate 2. 5 mg/0.5 mL solution for nebulization RxNorm: 974908 1 inhale INH Q4H as needed 05/21/2014 09/01/2015 Inactive prednisone 20 mg tablet RxNorm: 167804 1 Tablet(s) PO BID 05/21/2014 05/20/2014 Inactive cefdinir 300 mg capsule RxNorm: 565385 1 Capsule(s) PO BID 05/20/2014 05/26/2014 Inactive Zithromax Z-Dequan 250 mg tablet RxNorm: 740585 1 Tablet(s) PO UD 05/20/2014 05/24/2014 Inactive zpack lorazepam 0.5 mg tablet RxNorm: 864978 1/2 to 1 Tablet(s) PO Q8 PRN as needed 04/30/2014 06/05/2014 In active Namenda 10 mg tablet RxNorm: 305839 TAKE 1 TABLET BY MOUTH TWICE DAILY. 04/15/2014 01/21/2015 In active Namenda 10 mg tablet RxNorm: 914951 1 Tablet(s) PO BID 04/15/2014 04/14/2014 Inactive losartan 50 mg tablet RxNorm: 439985 1 Tablet(s) PO daily 03/25/2014 05/28/2014 Inactive Protonix 40 mg table t,delayed release RxNorm: 521463 1 Tablet(s) PO QPM 03/21/2014 06/18/2014 In active ok to change from [address] Archana rivera fluticasone 50 mcg/a ctuation nasal spray,suspension RxNorm: 143165 1 [place]edar NASAL BID 03/04/2014 09/29/2014 Inactive Protonix 20 mg table t,delayed release RxNorm: 443773 1 Tablet(s) PO QPM 02/08/2014 03/20/2014 In active fluticasone 50 mcg/a ctuation nasal spray,suspension RxNorm: 156468 1 Cedar NASAL BID 01/30/2014 03/03/2014 Inactive fluticasone 50 mcg/a ctuation nasal spray,suspension RxNorm: 928695 1 Cedar NASAL BID 12/24/2013 01/29/2014 Inactive fluticasone 50 mcg/a ctuation nasal spray,suspension RxNorm: 533864 1 Cedar NASAL BID 11/20/2013 12/23/2013 Inactive doxycycline hyclate 100 mg capsule RxNorm: 3526884 1 Capsule(s) PO BID 10/08/2013 10/17/2013 In active doxycycline hyclate 100 mg capsule RxNorm: 0171614 capsule oral 10/08/2013 10/29/2013 Inactive fluticasone 50 mcg/a ctuation nasal spray,suspension RxNorm: 718126 spray,suspension nasl 10/08/2013 11/19/2013 Inactive fluticasone 50 mcg/a ctuation nasal spray,suspension RxNorm: 970485 1 Cedar NASAL BID Nasal spray- use twice daily, one spray per nostril twice daily, after 30 minutes, rinse out nose with saline spray. 10/08/2013 10/29/2013 Inactive mirtazapine 7.5 mg t ablet RxNorm: 450893 1/2 Tablet(s) PO daily 08/30/2013 08/27/2014 Inactive lorazepam 0.5 mg tablet RxNorm: 586344 1/2 Tablet(s) PO Q8 PRN 08/21/2013 04/29/2014 Inactive Aricept 5 mg tablet RxNorm: 556236 Tablet(s) PO TAKE 1 TABLET DAILY 08/21/2013 05/28/2014 In active Plavix 75 mg tablet RxNorm: 126874 Tablet(s) PO TAKE 1 TABLET DAILY 05/24/2013 12/04/2014 In active clopidogrel 75 mg ta blet RxNorm: 763621 tablet oral 05/24/2013 05/26/2014 Inactive Plavix 75 mg tablet RxNorm: 269636 1 Tablet(s) PO daily 05/23/2013 05/23/2013 Inactive meloxicam 15 mg tablet RxNorm: 885379 tablet oral 04/26/2013 03/25/2014 Inactive Mobic 15 mg tablet RxNorm: 202033 Tablet(s) PO TAKE (1/2) TABLET DAILY. 04/26/2013 05/26/2014 In active Mobic 15 mg tablet RxNorm: 477181 1/2 Tablet(s) PO daily 04/25/2013 04/25/2013 Inactive lisinopril 20 mg tablet RxNorm: 564926 1 Tablet(s) PO 04/04/2013 03/24/2014 Inactive finasteride 5 mg tablet RxNorm: 538488 tablet oral 03/22/2013 09/01/2015 Inactive lisinopril 10 mg tablet RxNorm: 955452 1 Tablet(s) PO daily 02/14/2013 04/03/2013 Inactive donepezil 5 mg tablet RxNorm: 720667 tablet oral 02/07/2013 12/24/2013 Inactive Influenza Virus Vacc ine 0.5 mL RxNorm: IM 02/06/2013 02/06/2013 Inactive Aricept 5 mg tablet RxNorm: 946205 1 Tablet(s) PO daily 02/06/2013 08/04/2013 Inactive tamsulosin ER 0.4 mg capsule,extended release 24 hr RxNorm: 216101 capsule,extended release 24hr oral 12/21/2012 06/05/2014 Inactive Plavix 75 mg tablet RxNorm: 988116 1 Tablet(s) PO daily 12/05/2012 05/03/2013 Inactive lorazepam 0.5 mg tablet RxNorm: 573273 1/2 Tablet(s) PO Q8 PRN 11/14/2012 08/20/2013 Inactive lisinopril 10 mg tablet RxNorm: 110970 1 Tablet(s) PO daily 08/08/2012 02/03/2013 Inactive Aricept 5 mg tablet RxNorm: 298486 1 Tablet(s) PO daily 08/08/2012 02/03/2013 Inactive Plavix 75 mg tablet RxNorm: 576709 1 Tablet(s) PO daily 07/04/2012 11/30/2012 Inactive Mobic 15 mg tablet RxNorm: 321381 1/2 Tablet(s) PO daily 03/20/2012 04/13/2013 Inactive Namenda 10 mg tablet RxNorm: 626891 1 Tablet(s) PO BID 02/22/2012 04/11/2014 Inactive lorazepam 0.5 mg tablet RxNorm: 586274 1/2 Tablet(s) PO Q8 PRN 02/02/2012 11/13/2012 Inactive lisinopril 10 mg tablet RxNorm: 592701 1 Tablet(s) PO daily 01/24/2012 07/21/2012 Inactive lisinopril 10 mg tablet RxNorm: 455062 1/2 Tablet(s) PO daily 12/20/2011 01/23/2012 Inactive Aricept 5 mg tablet RxNorm: 773941 1 Tablet(s) PO daily 07/14/2011 08/06/2012 Inactive Mobic 15 mg tablet RxNorm: 170887 1 Tablet(s) PO daily 07/14/2011 03/19/2012 Inactive Bentyl 10 mg Cap RxNorm: 426966 1 Capsule(s) PO daily one pill daily and every 6 hours if needed for bowel spasms. 06/23/2011 03/20/2012 Inactive amlodipine 5 mg Tab RxNorm: 600578 2 Tablet(s) PO daily 03/08/2011 12/08/2011 Inactive ZOSTAVAX 19,400 unit Sub-Q Soln RxNorm: 0376482 SQ 02/2502/25/2011 Inactive Pneumovax 23 25 mcg/ 0.5 mL Injection RxNorm: 939745 Milliliter(s) Inj 02/16/2011 02/16/2011 In active Influenza Virus Vacc ine 0.5 mL RxNorm: IM 02/09/2011 02/09/2011 Inactive Namenda 10 mg tablet RxNorm: 795714 1 Tablet(s) PO BID 02/01/2011 02/21/2012 Inactive dicyclomine 10 mg ca psule RxNorm: 012242 capsule oral 01/20/2011 10/29/2013 Inactive Namenda 5 mg tablet RxNorm: 505497 tablet oral 01/20/2011 12/24/2013 Inactive dicyclomine 20 mg ta blet RxNorm: 971723 tablet oral 01/15/2011 10/29/2013 Inactive Flagyl 500 mg Tab RxNorm: 266060 1 Tablet(s) PO TID 01/07/2011 01/06/2011 Inactive Cipro 500 mg Tab RxNorm: 226386 1 Tablet(s) PO BID 01/07/2011 06/23/2011 Inactive Cipro 500 mg Tab RxNorm: 640400 1 Tablet(s) PO BID 01/07/2011 01/06/2011 Inactive Flagyl 500 mg Tab RxNorm: 371857 1 Tablet(s) PO TID 01/07/2011 06/23/2011 Inactive metronidazole 500 mg tablet RxNorm: 657327 tablet oral 01/07/2011 12/24/2013 Inactive sulfamethoxazole 400 mg-trimethoprim 80 mg tablet RxNorm: 868815 tablet oral 12/24/2010 03/10/2015 In active mirtazapine 15 mg ta blet RxNorm: 875885 tablet oral 11/14/2010 12/24/2013 Inactive lisinopril 10 mg tablet RxNorm: 334130 tablet oral 11/14/2010 12/24/2013 Inactive doxycycline hyclate 100 mg tablet RxNorm: 812241 tablet oral 11/04/2010 12/24/2013 Inactive diphenoxylate-atropi ne 2.5 mg-0.025 mg tablet RxNorm: 8732824 tablet oral 11/03/2010 10/29/2013 In active ciprofloxacin 500 mg tablet RxNorm: 286706 tablet oral 11/01/2010 10/29/2013 Inactive Miralax 17 gram/dose oral powder RxNorm: 363742 17 Gram(s) PO daily No Start Date Active alprazolam 0.25 mg t ablet RxNorm: 175805 1 Tablet(s) PO BID PRN No Start Date Active simvastatin 20 mg ta blet RxNorm: 747426 1 Tablet(s) PO daily No Start Date Active Vesicare 5 mg tablet RxNorm: 407343 1 Tablet(s) PO daily No Start Date Active bicalutamide 50 mg t ablet RxNorm: 197985 1 Tablet(s) PO daily No Start Date Active sulfamethoxazole 500 mg Tab RxNorm: 643502 1/2 Tablet(s) PO daily No Start Date 12/24/2013 Inactive Plavix 75 mg Tab RxNorm: 178806 1 Tablet(s) PO daily No Start Date 01/26/2011 Inactive aspirin 81 mg Cap, D elayed Release RxNorm: 379261 1 Capsule(s) PO daily No Start Date 01/04/2018 Inactive Bentyl 10 mg capsule RxNorm: 252705 1 Capsule(s) PO QID as needed per dr. tylor pereira No Start Date 01/04/2018 Inactive famotidine 20 mg tablet RxNorm: 163538 1 Tablet(s) PO BID prescribed in ER No Start Date 10/13/2017 Inactive hydrocodone 5 mg-alexey taminophen 325 mg tablet RxNorm: 078109 1 Tablet(s) PO Q6 as needed No Start Date 06/05/2014 Inactive Proscar 5 mg Tab RxNorm: 735142 1 Tablet(s) PO daily No Start Date 09/01/2015 Inactive Plavix 75 mg tablet RxNorm: 163572 1 Tablet(s) PO daily No Start Date 07/03/2012 Inactive albuterol sulfate 2. 5 mg/0.5 mL solution for nebulization RxNorm: 717793 1 inhale INH Q4H as needed No Start Date 05/20/2014 Inactive metoclopramide 5 mg tablet RxNorm: 227789 1 Tablet(s) PO AC & H S prescribed in ER No Start Date 01/04/2018 Inactive amlodipine 5 mg Tab RxNorm: 128546 1 Tablet(s) PO daily No Start Date 03/07/2011 Inactive ranitidine 150 mg ta blet RxNorm: 591527 1 Tablet(s) PO daily No Start Date 07/24/2018 Inactive Namenda 5 mg Tab RxNorm: 155786 1 Tablet(s) PO daily No Start Date 06/23/2011 Inactive Zyrtec 10 mg tablet RxNorm: 5892096 1 Tablet(s) PO daily No Start Date 01/04/2018 Inactive Allergy Relief (ceti rizine) oral RxNorm: 452888 oral No S tart Date 12/19/2016 Inactive fluocinonide 0.05 % Ointment RxNorm: 152813 1 TOP BID PRN No Start Date 12/24/2013 Inactive amlodipine 5 mg tablet RxNorm: 501002 1 Tablet(s) PO daily No Start Date 09/01/2014 Inactive lisinopril Oral RxNorm: Oral No Start Date 12/08/2011 Inactive simvastatin 20 mg Tab RxNorm: 076703 1 Tablet(s) PO daily No Start Date 06/06/2014 Inactive Bentyl 20 mg Tab RxNorm: 787648 1 Tablet(s) PO Q6 PRN No Start Date 06/23/[address] Quintero Bentyl 10 mg Cap RxNorm: 447344 1 Capsule(s) PO BID No Start Date 06/22/2011 Inactive fluticasone 50 mcg/a ctuation nasal spray,suspension RxNorm: 5517939 1 Cedar NASAL BID No Start Date 02/07/2018 Inactive Plavix 75 mg Tab RxNorm: 362086 1 Tablet(s) PO every other day No Start Date 08/24/2011 Inactive lorazepam 0.5 mg tablet RxNorm: 182024 1/2 Tablet(s) PO Q8 PRN No Start Date 02/01/2012 Inactive lisinopril 10 mg tablet RxNorm: 311166 1 Tablet(s) PO daily No Start Date 12/19/2011 Inactive Trulance 3 mg tablet RxNorm: 5961568 1 Tablet(s) PO QAM No Start Date 01/18/2018 Inactive Flomax 0.4 mg 24 hr Cap RxNorm: 889833 1 Capsule(s) PO daily No Start Date 05/28/2014 Inactive Phenergan 6.25 mg/5 mL syrup RxNorm: 668599 5-10 Milliliter(s) PO QID as needed No Start Date 08/16/2018 Inactive Aricept 5 mg Tab RxNorm: 702530 1 Tablet(s) PO daily No Start Date 07/13/2011 Inactive Vitamin D 1,000 unit Tab RxNorm: 535758 1 Tablet(s) PO daily No Start Date 01/04/2018 Inactive Levsin 0.125 mg tablet RxNorm: 1125552 1 Tablet(s) PO QID as needed FOR ABD REJI N No Start Date 11/04/2014 Inactive mirtazapine 7.5 mg t ablet RxNorm: 773321 1/2 Tablet(s) PO daily No Start Date 08/29/2013 Inactive Senior Vitamin Tab RxNorm: 1 Tablet(s) PO daily No Start Date 01/04/2018 Inactive Mobic 15 mg Tab RxNorm: 862364 1 Tablet(s) PO daily No Start Date 07/13/2011 Inactive Medication Administered Medication Codes Instruc tions Start Date Status Kenalog 40 mg/mL suspension for injection RxNorm: 1259165 Milliliter 11/25/2016 No longer Active Influenza Virus Vaccine 0.5 mL RxNorm: 02/06/2013 No longer Active ZOSTAVAX 19,400 unit Sub-Q Soln RxNo rm: 2748683 02/25/2011 No longer A ctive Pneumovax 23 25 mcg/0.5 mL Injection RxNorm: 408119 Milliliter 02/16/2011 No longer Active Influenza Virus [...] completed Assessments Condition Codes Effectiv e Dates Essential (primary) hypertension ICD -10: I10 ICD-9: 401.1 08/17/2018 Gastro-esophageal reflux disease without esophagitis ICD-10: K21.9 [...] thoracic spine ICD-10: M54.6 ICD-9: 724.1 06/21/2017 Cervicalgia ICD-10: M54.2 ICD-9: 723.1 06/21/2017 Other allergic rhinitis ICD-10: J30. 89 [...] Reason For Visit Effective Dates Notes hypertension 08/17/2018 abdominal pain 05/18/2018 abdominal pain [...] Ord15 CALCIUM 10.1 mg/dL 06/08/2018 Comp Metabolic Ags785 NA 143 mEq/L 04/10/2018 Comp Metabolic Oms474 K 3.8 mEq/L 04/10/2018 Comp Metabolic Kco630 CL 105 mEq/L 04/10/2018 Comp Metabolic Bld982 CO2 30.0 mEq/L 04/10/2018 Comp Metabolic Jwq364 AN ION GAP 12 04/10/2018 Comp Metabolic Xbl821 GL UCOSE 95 mg/dL 04/10/2018 Comp Metabolic Ueq148 Cr eat 1.2 mg/dL 04/10/2018 Comp Metabolic Wzc661 eG FR 60 ml/min/1.73m2 04/10 Comp Metabolic Kvi388 BUN 22 mg/dL 04/10/2018 Comp Metabolic Sxj235 B/ C Ratio 18.2 Ratio 04/10/2018 Comp Metabolic Zxq852 CA LCIUM 10.3 mg/dL 04/10/2018 Comp Metabolic Qhf783 AL K PHOS 113 U/L 04/10/2018 Comp Metabolic Owc827 T(SGOT) 30 U/L 04/10/2018 Comp Metabolic Ymj932 AL T(SGPT) 19 U/L 04/10/2018 Comp Metabolic Epi866 BI LI T 0.4 mg/dL 04/10/2018 Comp Metabolic Fzk834 AL BUMIN 4.2 g/dL 04/10/2018 Comp Metabolic Ygs545 TP RO 6.5 g/dL 04/10/2018 Comp Metabolic Rou166 GL OB 2.3 g/dL 04/10/2018 Comp Metabolic Juc557 A/ G Ratio 1.8 Ratio 04/10/2018 Comp Metabolic Muq667 Os mo 288 mOsmo 04/10/2018 Lipid Ord30 CHOL 133 mg/dL 04/10/2018 Lipid Ord30 HDL 49.0 mg/dl 04/10/2018 Lipid Ord30 TRIG 68 mg/dL 04/10/2018 Lipid Ord30 LDL 70 mg/dL 04/10/2018 Lipid Ord30 C/HDL 2.7 Ratio 04/10/2018 C RAP A SC [id number] Strep A Negative 01/13/2018 Comp Metabolic Qwj858 NA 134 mEq/L 10/07/2017 Comp Metabolic Pjq675 K 4.5 mEq/L 10/07/2017 Comp Metabolic Lut600 CL 99 mEq/L 10/07/2017 Comp Metabolic Pdn287 CO2 31.0 mEq/L 10/07/2017 Comp Metabolic Onh105 AN ION GAP 9 10/07/2017 Comp Metabolic Bfo055 GL UCOSE 82 mg/dL 10/07/2017 Comp Metabolic Wsi579 Cr eat 1.0 mg/dL 10/07/2017 Comp Metabolic Zgg389 eG FR 77 ml/min/1.73m2 10/07 Comp Metabolic Gbi006 BUN 16 mg/dL 10/07/2017 Comp Metabolic Jcq001 B/ C Ratio 16.3 Ratio 10/07/2017 Comp Metabolic Edk541 CA LCIUM 9.6 mg/dL 10/07/2017 Comp Metabolic Qmp874 AL K PHOS 72 U/L 10/07/2017 Comp Metabolic Upc311 T(SGOT) 21 U/L 10/07/2017 Comp Metabolic Xtm845 AL T(SGPT) 14 U/L 10/07/2017 Comp Metabolic Lgz026 BI LI T 0.4 mg/dL 10/07/2017 Comp Metabolic Nhf323 AL BUMIN 4.0 g/dL 10/07/2017 Comp Metabolic Elc930 TP RO 5.7 g/dL 10/07/2017 Comp Metabolic Lxb242 GL OB 1.7 g/dL 10/07/2017 Comp Metabolic Vkf274 A/ G Ratio 2.4 Ratio 10/07/2017 Comp Metabolic Dxb104 Os mo 269 mOsmo 10/07/2017 Lipid Ord30 CHOL 135 mg/dL 10/07/2017 Lipid Ord30 HDL 69.0 mg/dl 10/07/2017 Lipid Ord30 TRIG 52 mg/dL 10/07/2017 Lipid Ord30 LDL 56 mg/dL 10/07/2017 Lipid Ord30 C/HDL 2.0 Ratio 10/07/2017 %Hba1C Jts934 % HbA1c 27478-4 5.5 % 09/12/2017 %Hba1C Knu323 Gluc Ave 111 mg/dL 09/12/2017 B12 Fws345 B12 816.00 pg/ml 09/10/2017 Test(s) Not Perfromed Test(s) Not Performed Test(s) Not Performed. See B elow: 09/09/2017 Test(s) Not Perfromed TEST NAME VIT D 09/09/2017 Test(s) Not Perfromed Rejection Reason NO PAYABLE DX 018 Test(s) Not Perfromed COMMENT PATIENT SAID HE WAS TAKING SUPPLEMENT 09/09/2017 Test(s) Not Perfromed [employer] Tello Almeida 018 Lipid Ord30 CHOL 134 mg/dL 04/11/2017 Lipid Ord30 HDL 63.0 mg/dl 04/11/2017 Lipid Ord30 TRIG 45 mg/dL 04/11/2017 Lipid Ord30 LDL 62 mg/dL 04/11/2017 Lipid Ord30 C/HDL 2.1 Ratio 04/11/2017 Tsh Ord6 hTSH II 2.07 uIU/mL 04/11/2017 Body Fluid Crystals Source RIGHT ELBOW 6 Body Fluid Crystals CRYSTALS, BODY FLUID 02/18/2016 Uric Acid Body Fluid 470132 URIC ACID-FLUID 4.3 mg/dL 02/18/2016 Metabolic Ord15 [...] Ord15 CALCIUM 9.1 mg/dL 02/05/2016 Comp Metabolic Gfl718 NA 129 mEq/L 10/08/2015 Comp Metabolic Vfy431 K 4.7 mEq/L 10/08/2015 Comp Metabolic Ntz340 CL 98 mEq/L 10/08/2015 Comp Metabolic Ujt588 CO2 28.0 mEq/L 10/08/2015 Comp Metabolic Vcc673 AN ION GAP 8 10/08/2015 Comp Metabolic Yqo049 GL UCOSE 84 mg/dL 10/08/2015 Comp Metabolic Qju024 Cr eat 1.3 mg/dL 10/08/2015 Comp Metabolic Qmi013 eG FR 56 ml/min/1.73m2 10/07 Comp Metabolic Vsr628 BUN 23 mg/dL 10/08/2015 Comp Metabolic Wht830 B/ C Ratio 17.8 Ratio 10/08/2015 Comp Metabolic Fwf793 CA LCIUM 9.3 mg/dL 10/08/2015 Comp Metabolic Bew364 AL K PHOS 68 U/L 10/08/2015 Comp Metabolic Dcz683 T(SGOT) 24 U/L 10/08/2015 Comp Metabolic Uln695 AL T(SGPT) 15 U/L 10/08/2015 Comp Metabolic Qoq133 BI LI T 0.5 mg/dL 10/08/2015 Comp Metabolic Gen519 AL BUMIN 4.0 g/dL 10/08/2015 Comp Metabolic Nvm057 TP RO 5.9 g/dL 10/08/2015 Comp Metabolic Xre955 GL OB 1.9 g/dL 10/08/2015 Comp Metabolic Owu329 A/ G Ratio 2.1 Ratio 10/08/2015 Comp Metabolic Mfa715 Os mo 262 mOsmo 10/08/2015 Lipid Ord30 [...] Ord30 C/HDL 2.3 Ratio 05/07/2015 Comp Metabolic Jam517 NA 132 mEq/L 05/07/2015 Comp Metabolic Vxo279 K 4.4 mEq/L 05/07/2015 Comp Metabolic Btx342 CL 97 mEq/L 05/07/2015 Comp Metabolic Lji203 CO2 30.0 mEq/L 05/07/2015 Comp Metabolic Tlp230 AN ION GAP 9 05/07/2015 Comp Metabolic Xlr135 GL UCOSE 78 mg/dL 05/07/2015 Comp Metabolic Srp325 Cr eat 1.2 mg/dL 05/07/2015 Comp Metabolic Ans372 eG FR 60 ml/min/1.73m2 05/07 Comp Metabolic Mqu085 BUN 25 mg/dL 05/07/2015 Comp Metabolic Owx421 B/ C Ratio 20.3 Ratio 05/07/2015 Comp Metabolic Akr386 CA LCIUM 9.6 mg/dL 05/07/2015 Comp Metabolic Vqt645 AL K PHOS 70 U/L 05/07/2015 Comp Metabolic Hmv187 T(SGOT) 27 U/L 05/07/2015 Comp Metabolic Yzo703 AL T(SGPT) 20 U/L 05/07/2015 Comp Metabolic Pli796 BI LI T 0.4 mg/dL 05/07/2015 Comp Metabolic Bnq648 AL BUMIN 4.0 g/dL 05/07/2015 Comp Metabolic Bar201 TP RO 5.8 g/dL 05/07/2015 Comp Metabolic Ygc898 GL OB 1.8 g/dL 05/07/2015 Comp Metabolic Wdy541 A/ G Ratio 2.3 Ratio 05/07/2015 Comp Metabolic Rfn924 Os mo 268 mOsmo 05/07/2015 Cbc With [...] hTSH II 4.07 uIU/mL 05/07/2015 Comp Metabolic Yaa980 NA 134 mEq/L 12/10/2014 Comp Metabolic Zqo993 K 4.8 mEq/L 12/10/2014 Comp Metabolic Lbq591 CL 101 mEq/L 12/10/2014 Comp Metabolic Yuu385 CO2 30.0 mEq/L 12/10/2014 Comp Metabolic Mmc303 AN ION GAP 8 12/10/2014 Comp Metabolic Qgb382 GL UCOSE 85 mg/dL 12/10/2014 Comp Metabolic Ukm609 Cr eat 1.2 mg/dL 12/10/2014 Comp Metabolic Laa053 eG FR 65 ml/min/1.73m2 12/10 Comp Metabolic Gcr522 BUN 25 mg/dL 12/10/2014 Comp Metabolic Zlc419 B/ C Ratio 21.7 Ratio 12/10/2014 Comp Metabolic Mqu618 CA LCIUM 9.5 mg/dL 12/10/2014 Comp Metabolic Jzj831 AL K PHOS 76 U/L 12/10/2014 Comp Metabolic Wcm920 T(SGOT) 27 U/L 12/10/2014 Comp Metabolic Wjl883 AL T(SGPT) 18 U/L 12/10/2014 Comp Metabolic Ffx374 BI LI T 0.5 mg/dL 12/10/2014 Comp Metabolic Kzq403 AL BUMIN 4.1 g/dL 12/10/2014 Comp Metabolic Vct702 TP RO 5.7 g/dL 12/10/2014 Comp Metabolic Eve505 GL OB 1.6 g/dL 12/10/2014 Comp Metabolic Eio381 A/ G Ratio 2.6 Ratio 12/10/2014 Comp Metabolic Qdd350 Os mo 272 mOsmo 12/10/2014 B12 Wue441 B12 1011.00 pg/ml 12/10/2014 Lipid Ord30 CHOL [...] Differential Ord2 RDW 14.3 % 12/10/2014 CBC 0551075 WBC 4.1 10e9/L 02/19/2013 CBC 8992894 RBC 4.39 10e12/L 02/19/2013 CBC 4866301 HGB 14.1 g/dL 02/19/2013 CBC 8719926 HCT DET 41.0 % 02/19/2013 CBC 6105271 MCV 93.4 fL 02/19/2013 CBC 3883780 MCH 32.1 pg 02/19/2013 CBC 0839527 MCHC 34.4 g/dL 02/19/2013 CBC 9783627 PLT 151 10e9/L 02/19/2013 CBC 9894400 MPV 11.8 fL 02/19/2013 CBC 7315160 YOVANNY % 63.2 % 02/19/2013 CBC 1988726 LY % 22.9 % 02/19/2013 CBC 6975120 MON % 11.5 % 02/19/2013 CBC 9266928 EOS % 2.2 % 02/19/2013 CBC 2923727 BASO % 0.2 % 02/19/2013 CBC 7786220 RDW 13.8 % 02/19/2013 CBC 8699630 ABS YOVANNY 2.59 10e9/L 02/19/2013 CBC 4462454 ABS LYMPH 0.94 10e9/L 02/19/2013 CBC 5009622 ABS MONO 0.47 10e9/L 02/19/2013 CBC 2403072 ABS EOS 0.09 10e9/L 02/19/2013 CBC 2141849 ABS BASO 0.01 10e9/L 02/19/2013 CBC 1794632 RDW-SD 46.0 fL 02/19/2013 TSH 9790635 TSH 2.094 uIU/ML 02/19/2013 FREE T4 9023048 FREE T4 1.18 NG/DL 02/19/2013 GFR CALC 0035495 GFR AA >60 ML/MIN 02/19/2013 GFR CALC 3758808 GFR NON -AA >60 ML/MIN 02/19/2013 CHEM 14 4611186 AST 30 U/L 02/19/2013 CHEM 14 4502861 ALT 19 IU/L 02/19/2013 CHEM 14 8879500 BUN 21 MG/DL 02/19/2013 CHEM 14 8955108 ALBUMIN 4.4 GM/DL 02/19/2013 CHEM 14 3521684 CHLORIDE 94 MMOL/L 02/19/2013 CHEM 14 6447761 BILI TOT 0.5 MG/DL 02/19/2013 CHEM 14 8235564 ALK PHOS 75 U/L 02/19/2013 CHEM 14 2582852 SODIUM 133 MMOL/L 02/19/2013 CHEM 14 5638610 CREATINI NE 1.07 MG/DL 02/19/2013 CHEM 14 2229881 CALCIUM 9.6 MG/DL 02/19/2013 CHEM 14 6400511 POTASSIUM 4.6 MMOL/L 02/19/2013 CHEM 14 1322621 PROT TOT 6.1 GM/DL 02/19/2013 CHEM 14 3616540 GLUCOSE 94 MG/DL 02/19/2013 CHEM 14 5887766 BICARB 31 MMOL/L 02/19/2013 CHEM 14 7868866 ANION GAP 8 MEQ/L 02/19/2013 UA 22290 Specific [place] 1.015 DateTime(Free Text in Aprima ) UA 51862 PH 6 DateTime(Free Text in Aprima ) UA 92006 GLUCOSE neg DateTime(Free Text in Aprima ) UA 56656 Protein neg DateTime(Free Text in Aprima ) UA 64401 Blood neg DateTime(Free Text in ) UA 78329 Bilirubin neg DateTime(Free Text in ) UA 43257 Ketones neg DateTime(Free Text in ) UA 77765 Urobilinogen neg DateTime(Free Text in ) UA 33859 Nitrite neg DateTime(Free Text in Aprima ) UA 73669 Leukocytes neg DateTime(Free Text in ) Review of Systems System Result Effective Dates Constitutional recent illness 08/17/2018 Constitutional No chills [...] No alteration of consciousness 12/04/2014 Psychiatric anxiety 07/01/2015 Constitutional No recent illness 09/24/2014 Constitutional No [...] No alteration of consciousness 09/24/2014 Psychiatric anxiety 0501/2015 Constitutional No anorexia 09/09/2014 Constitutional No fever [...] developed 05/18/2018 None Full Exam - General 1995 Constitutional [...] nourished 01/19/2018 None Full Exam - General 1995 Eyes conjunctiva/eyelids Overall: conjunctiva clear 01/19/2018 None Full Exam - General 1995 Eyes conjunctiva/eyelids Overall: cornea clear 01/19/2018 None Full Exam - General 1995 Eyes conjunctiva/eyelids Overall: eyelids normal 01/19/2018 None Full Exam - General 1995 Ears/Nose/Throat lips/teeth/gingiva Overall: benign lips 01/19/2018 None [...] clear 01/12/2018 None Full Exam - General 1995 Eyes conjunctiva/eyelids Overall: eyelids normal 01/12/2018 None Full Exam - General 1995 Ears/Nose/Throat lips/teeth/gingiva Overall: benign lips 01/12/2018 None [...] 1995 Abdomen abdominal exam Overall: no tenderness 04/04/2013 None Full Exam - General 1995 Abdomen abdominal exam Overall: normal bowel sounds 04/04/2013 None Full Exam - General 1995 Musculoskeletal spine, ribs and pelvis Overall: ribs benign 04/04/2013 None Full Exam - General 1995 Musculoskeletal spine, ribs and pelvis Overall: spine benign 04/04/2013 None Full Exam - General 1995 Musculoskeletal spine, ribs and pelvis Overall: sacroiliac joint benign 04/04/2013 None Full Exam - General 1995 Musculoskeletal spine, ribs and pelvis Overall: right hip benign 04/04/2013 None Full Exam - General 1995 Musculoskeletal spine, ribs and pelvis Overall: left hip benign 04/04/2013 None Full Exam - General 1995 [...] 1995 Abdomen abdominal exam Overall: no tenderness 02/19/2013 [...] developed 01/24/2012 None Full Exam - General 1995 Constitutional general appearance Overall: in no acute distress 01/24/2012 None Full Exam - General 1995 Constitutional general appearance Overall: well nourished 01/24/2012 [...] accomodation 12/20/2011 None Full Exam - General 1995 [...] nourished 01/26/2011 None Full Exam - General 1995 Constitutional general appearance Overall: well developed 01/26/2011 None Full Exam - General 1994 Constitutional general appearance Overall: in no acute distress 01/26/2011 None Full Exam - General 1995 [...] Exam - General 1995 Neck thyroid Overall: normal size 01/2011 None [...] VACC PRSV FREE I NC ANTIG CPT-4: 73777 02/08/2018 URINALYSIS NONAUTO W /O SCOPE CPT-4: 21200 09/26/2017 ADMIN INFLUENZA VIRU S VAC CPT-4: G0008 01/25/2017 FLU VACC PRSV FREE I NC ANTIG CPT-4: 25630 01/25/2017 THER/PROPH/DIAG INJ SC/IM CPT-4: 41704 11/25/2016 TRIAMCINOLONE ACET I [place] NOS CPT-4: J3301 11/25/2016 DRAIN/INJECT JOINT/B URSA CPT-4: 52228 02/17/2016 IMMUNIZATION ADMIN CPT- 4: 82570 05/06/2015 PNEUMOCOCCAL VACC 13 TIFFANIE IM Formatting Model/CDA Sections, Assigned to/Celia Minaya SNOMED CT: [id number] CPT-4: 48188Qajdpit 05/06/2015 ADMIN INFLUENZA VIRU S VAC CPT-4: G0008 02/19/2015 FLU VACC 4 TIFFANIE 3 YRS PLUS IM Formatting Model/CDA Sections, Assigned to SNOMED CT: [id number] CPT-4: 88645Iynwmyx 02/19/2015 URINALYSIS NONAUTO W /O SCOPE CPT-4: 32586 05/23/2014 ADMIN INFLUENZA VIRU S VAC CPT-4: G0008 03/26/2014 FLU VAC NO PRSV 4 VA L 3 YRS+ Assigned to/Celia Minaya CPT-4: 57190Uokyqoi 03/26/2014 PRESCRIP TRANSMIT A ERX SY CPT-4: G8553 04/04/2013 ROUTINE VENIPUNCTURE CPT-4: 70316 02/19/2013 ADMIN INFLUENZA VIRU S VAC CPT-4: G0008 02/06/2013 FLULAVAL VACC, 3 YRS & >, IM CPT-4: Q2036 02/06/2013 55416 EST. PATIENT, LEVEL IV CPT-4: 86783 06/19/2012 PRESCRIP TRANSMIT A ERX SY CPT-4: G8553 06/19/2012 PRESCRIP TRANSMIT A ERX SY CPT-4: G8553 03/20/2012 PRESCRIP TRANSMIT A ERX SY CPT-4: G8553 06/23/2011 IMMUNIZATION ADMIN CPT- 4: 36891 02/25/2011 ZOSTER VACC SC (No lloyd angelo, patient supplied vaccine) CPT-4: 89897HZ 02/25/2011 ADMIN PNEUMOCOCCAL V ACCINE SNOMED CT: 28295107 CPT-4: G0009 02/16/2011 Pneumococcal Polysac charide Vaccine, 23-Valent, Ad CPT-4: 07223 02/16/2011 ADMIN INFLUENZA VIRU S VAC CPT-4: G0008 02/09/2011 FLULAVAL VACC, 3 YRS & >, IM CPT-4: Q2036 02/09/2011 PRESCRIP TRANSMIT A ERX SY CPT-4: G8553 02/01/2011 URINALYSIS NONAUTO W /O SCOPE CPT-4: 88643 01/27/2011 Vital Signs Date Vital 08/17/2018 Blood Pressure 1: 138/68 Code: 8480-6 BMI: 20.4 Code: 63875-7 Heart Rate 1: 76 bpm Height: 5'9" Weight: 138 lbs 05/18/2018 Blood Pressure 1: 142/64 Code: 8480-6 BMI: 19.9 Code: 06434-9 Heart Rate 1: 52 bpm Height: 5'9" SpO2: 98% Weight: 135 lbs 04/13/2018 Blood Pressure 1: 128/58 Code: 8480-6 BMI: 21.0 Code: 84038-5 Heart Rate 1: 83 bpm Height: 5'9" SpO2: 94% Weight: 142 lbs 02/08/2018 Blood Pressure 1: 136/76 Code: 8480-6 BMI: 19.9 Code: 15155-3 Heart Rate 1: 78 bpm Height: 5'9" SpO2: 99% Weight: 135 lbs 01/19/2018 Blood Pressure 1: 114/78 Code: 8480-6 BMI: 19.9 Code: 99415-4 Heart Rate 1: 80 bpm Height: 5'9" SpO2: 98% Weight: 135 lbs 01/12/2018 Blood Pressure 1: 130/78 Code: 8480-6 BMI: 19.8 Code: 04044-1 Heart Rate 1: 85 bpm Height: 5'9" SpO2: 97% Weight: 134 lbs 01/05/2018 Blood Pressure 1: 122/70 Code: 8480-6 BMI: 19.6 Code: 34716-2 Heart Rate 1: 87 bpm Height: 5'9" SpO2: 96% Weight: 133 lbs 11/14/2017 Blood Pressure 1: 130/70 Code: 8480-6 BMI: 19.5 Code: 61220-8 Heart Rate 1: 75 bpm Height: 5'9" SpO2: 98% Weight: 132 lbs 2017 Blood Pressure 1: 116/70 Code: 8480-6 BMI: 19.5 Code: 62159-5 Heart Rate 1: 55 bpm Height: 5'9" SpO2: 95% Weight: 132 lbs 10/13/2017 Blood Pressure 1: 130/70 Code: 8480-6 BMI: 19.3 Code: 78217-9 Heart Rate 1: 67 bpm Height: 5'9" SpO2: 98% Weight: 131 lbs 09/26/2017 Blood Pressure 1: 126/70 Code: 8480-6 BMI: 19.1 Code: 60453-4 Heart Rate 1: 66 bpm Height: 5'9" SpO2: 100% Weight: 129 lbs 8 oz 09/12/2017 Blood Pressure 1: 120/70 Code: 8480-6 BMI: 19.5 Code: 22688-7 Heart Rate 1: 83 bpm Height: 5'9" SpO2: 99% Weight: 132 lbs 09/09/2017 Blood Pressure 1: 126/70 Code: 8480-6 BMI: 19.3 Code: 45909-0 Heart Rate 1: 80 bpm Height: 5'9" SpO2: 98% Weight: 131 lbs 08/17/2017 Blood Pressure 1: 130/74 Code: 8480-6 BMI: 19.6 Code: 05036-6 Heart Rate 1: 72 bpm Height: 5'9" SpO2: 98% Weight: 133 lbs 07/20/2017 Blood Pressure 1: 124/62 Code: 8480-6 BMI: 19.8 Code: 96366-1 Heart Rate 1: 65 bpm Height: 5'9" SpO2: 96% Weight: 134 lbs 07/01/2017 Blood Pressure 1: 134/64 Code: 8480-6 BMI: 21.0 Code: 99330-6 Height: 5'9" Weight: 142 lbs 06/21/2017 Blood Pressure 1: 142/80 Code: 8480-6 BMI: 21.0 Code: 39197-2 Heart Rate 1: 63 bpm Height: 5'9" SpO2: 98% Weight: 142 lbs 03/21/2017 Blood Pressure 1: 128/66 Code: 8480-6 BMI: 20.8 Code: 48712-5 Heart Rate 1: 61 bpm Height: 5'9" SpO2: 98% Weight: 141 lbs 03/08/2017 Blood Pressure 1: 134/68 Code: 8480-6 BMI: 20.4 Code: 28935-0 Heart Rate 1: 56 bpm Height: 5'9" SpO2: 99% Weight: 138 lbs 01/25/2017 Blood Pressure 1: 98/62 Code: 8480-6 BMI: 20.6 Code: 39981-9 Heart Rate 1: 71 bpm Height: 5'9" SpO2: 97% Weight: 139 lbs 8 oz 12/20/2016 Blood Pressure 1: 120/68 Code: 8480-6 BMI: 20.4 Code: 07940-3 Heart Rate 1: 70 bpm Height: 5'9" [...] 1: 120/60 Code: 8480-6 BMI: 20.7 Code: 26762-8 Heart Rate 1: 74 bpm Height: 5'9" SpO2: 95% Weight: 140 lbs 08/23/2016 Blood Pressure 1: 118/68 Code: 8480-6 BMI: 20.8 Code: 50277-1 Heart Rate 1: 54 bpm Height: 5'9" SpO2: 97% Weight: 141 lbs 04/26/2016 Blood Pressure 1: 108/64 Code: 8480-6 BMI: 21.0 Code: 56355-3 Heart Rate 1: 62 bpm Height: 5'9" SpO2: 95% Weight: 142 lbs 02/17/2016 Blood Pressure 1: 138/80 Code: 8480-6 BMI: 20.2 Code: 17862-9 Heart Rate 1: 76 bpm Height: 5'9" SpO2: 97% Weight: 137 lbs 02/09/2016 Blood Pressure 1: 140/76 Code: 8480-6 BMI: 20.2 Code: 28426-4 Heart Rate 1: 72 bpm Height: 5'9" SpO2: 96% Weight: 137 lbs 02/03/2016 Blood Pressure 1: 136/80 Code: 8480-6 BMI: 20.7 Code: 88028-7 Heart Rate 1: 86 bpm Height: 5'9" SpO2: 96% Weight: 140 lbs 01/26/2016 Blood Pressure 1: 144/78 Code: 8480-6 BMI: 20.7 Code: 64832-8 Heart Rate 1: 73 bpm Height: 5'9" SpO2: 97% Temperature: 37.0 (C ) / 98.6 (F) Weight: 140 lbs 01/21/2016 Blood Pressure 1: 116/62 Code: 8480-6 BMI: 20.4 Code: 53016-9 Heart Rate 1: 66 bpm Height: 5'9" SpO2: 97% Weight: 138 lbs 12/29/2015 Blood Pressure 1: 130/74 Code: 8480-6 BMI: 20.4 Code: 11449-4 Heart Rate 1: 51 bpm Height: 5'9" SpO2: 98% Weight: 138 lbs 09/02/2015 Blood Pressure 1: 126/60 Code: 8480-6 BMI: 22.3 Code: 08882-2 Heart Rate 1: 55 bpm Height: 5'9" SpO2: 96% Weight: 151 lbs 05/06/2015 Blood Pressure 1: 132/72 Code: 8480-6 BMI: 21.0 Code: 71639-8 Heart Rate 1: 63 bpm Height: 5'9" SpO2: 97% Weight: 142 lbs 03/05/2015 Blood Pressure 1: 130/68 Code: 8480-6 BMI: 21.0 Code: 35019-8 Heart Rate 1: 61 bpm Height: 5'9" SpO2: 96% Weight: 142 lbs 12/04/2014 Blood Pressure 1: 122/64 Code: 8480-6 BMI: 21.3 Code: 33551-6 Heart Rate 1: 72 bpm Height: 5'9" Weight: 144 lbs 09/24/2014 Blood Pressure 1: 142/80 Code: 8480-6 BMI: 20.4 Code: 81049-2 Heart Rate 1: 80 bpm Height: 5'9" Weight: 138 lbs 09/09/2014 Blood Pressure 1: 122/74 Code: 8480-6 BMI: 20.5 Code: 47234-7 Heart Rate 1: 64 bpm Height: 5'9" Weight: 139 lbs 07/26/2014 Blood Pressure 1: 136/82 Code: 8480-6 BMI: 20.4 Code: 96686-1 Heart Rate 1: 87 bpm Height: 5'9" SpO2: 92% Weight: 138 lbs 07/10/2014 Blood Pressure 1: 130/74 Code: 8480-6 BMI: 21.1 Code: 50038-5 Heart Rate 1: 64 bpm Height: 5'9" Weight: 143 lbs 06/06/2014 Blood Pressure 1: 142/88 Code: 8480-6 BMI: 20.4 Code: 27583-6 Heart Rate 1: 68 bpm Height: 5'9" Weight: 138 lbs 05/29/2014 Blood Pressure 1: 108/72 Code: 8480-6 BMI: 20.5 Code: 43684-0 Heart Rate 1: 60 bpm Height: 5'9" Weight: 139 lbs 05/20/2014 Blood Pressure 1: 140/72 Code: 8480-6 BMI: 21.6 Code: 83100-9 Heart Rate 1: 60 bpm Height: 5'9" SpO2: 98% Temperature: 36.2 (C ) / 97.2 (F) Weight: 146 lbs 03/25/2014 Blood Pressure 1: 128/60 Code: 8480-6 BMI: 21.4 Code: 07795-8 Heart Rate 1: 62 bpm Height: 5'9" Weight: 145 lbs 02/08/2014 Blood Pressure 1: 136/82 Code: 8480-6 BMI: 21.3 Code: 20190-0 Heart Rate 1: 68 bpm Height: 5'9" Weight: 144 lbs 12/24/2013 Blood Pressure 1: 122/76 Code: 8480-6 BMI: 21.6 Code: 08826-4 Heart Rate 1: 58 bpm Height: 5'9" Weight: 146 lbs 11/20/2013 Blood Pressure 1: 112/62 Code: 8480-6 BMI: 20.7 Code: 83767-6 Heart Rate 1: 56 bpm Height: 5'9" Weight: 140 lbs 10/30/2013 Blood Pressure 1: 130/68 Code: 8480-6 BMI: 20.1 Code: 50094-6 Heart Rate 1: 68 bpm Height: 5'9" SpO2: 96% Weight: 136 lbs 10/08/2013 Blood Pressure 1: 128/72 Code: 8480-6 BMI: 20.8 Code: 59976-5 Heart Rate 1: 60 bpm Height: 5'9" Temperature: 36.6 (C ) / 97.8 (F) Weight: 141 lbs 06/18/2013 Blood Pressure 1: 124/78 Code: 8480-6 BMI: 20.8 Code: 17113-5 Heart Rate 1: 64 bpm Height: 5'9" Weight: 141 lbs 04/04/2013 Blood Pressure 1: 138/60 Code: 8480-6 BMI: 20.8 Code: 70452-6 Heart Rate 1: 56 bpm Height: 5'9" Weight: 141 lbs 02/19/2013 Blood Pressure 1: 152/74 Code: 8480-6 BMI: 21.0 Code: 98720-2 Heart Rate 1: 60 bpm Height: 5'9" Weight: 142 lbs 10/16/2012 Blood Pressure 1: 122/70 Code: 8480-6 BMI: 20.8 Code: 57548-8 Heart Rate 1: 64 bpm Height: 5'9" Weight: 141 lbs 06/19/2012 Blood Pressure 1: 120/72 Code: 8480-6 BMI: 21.1 Code: 51889-7 Heart Rate 1: 60 bpm Height: 5'9" Weight: 143 lbs 03/20/2012 Blood Pressure 1: 114/76 Code: 8480-6 Heart Rate 1: 60 bpm Respiratory Rate: 16 bpm Weight: 143 lbs 01/24/2012 Blood Pressure 1: 134/70 Code: 8480-6 Heart Rate 1: 64 bpm Weight: 143 lbs 12/20/2011 Blood Pressure 1: 98/72 Code: 8480-6 BMI: 21.1 Code: 48407-6 Heart Rate 1: 60 bpm Height: 5'9" Respiratory Rate: 16 bpm Weight: 143 lbs 12/09/2011 Blood Pressure 1: 110/60 Code: 8480-6 Heart Rate 1: 66 bpm SpO2: 98% Weight: 141 lbs 08/25/2011 Blood Pressure 1: 112/70 Code: 8480-6 BMI: 20.8 Code: 87778-2 Heart Rate 1: 54 bpm Height: 5'9" Respiratory Rate: 16 bpm Weight: 141 lbs 06/23/2011 Blood Pressure 1: 126/64 Code: 8480-6 Heart Rate 1: 60 bpm Respiratory Rate: 16 bpm Weight: 142 lbs 04/19/2011 Blood Pressure 1: 124/64 Code: 8480-6 BMI: 21.1 Code: 57130-9 Heart Rate 1: 64 bpm Height: 5'9" Respiratory Rate: 16 bpm Weight: 143 lbs 03/23/2011 Blood Pressure 1: 137/71 Code: 8480-6 Heart Rate 1: 57 bpm 03/08/2011 Blood Pressure 1: 154/70 Code: 8480-6 BMI: 20.8 Code: 04695-7 Heart Rate 1: 60 bpm Height: 5'9" Respiratory Rate: 16 bpm Weight: 141 lbs 03/01/2011 Blood Pressure 1: 178/80 Code: 8480-6 Blood Pressure 2: 168/70 Code: 8480-6 BMI: 24.1 Code: 61151-5 Heart Rate 1: 60 bpm Height: 5'9" Respiratory Rate: 16 bpm Weight: 163 lbs 02/01/2011 Blood Pressure 1: 162/84 Code: 8480-6 Heart Rate 1: 60 bpm Respiratory Rate: 16 bpm Weight: 144 lbs 01/27/2011 Blood Pressure 1: 138/54 Code: 8480-6 BMI: 21.1 Code: 62658-3 Heart Rate 1: 68 bpm Height: 5'9" Respiratory Rate: 16 bpm Weight: 143 lbs 01/26/2011 Blood Pressure 1: 148/86 Code: 8480-6 BMI: 21.3 Code: 61684-2 Heart Rate 1: 74 bpm Height: 5'9" Weight: 144 lbs 01/15/2011 Blood Pressure 1: 136/76 Code: 8480-6 BMI: 20.5 Code: 64802-9 Heart Rate 1: 70 bpm Height: 5'10" Weight: 141 lbs 01/06/2011 Blood Pressure 1: 148/72 Code: 8480-6 BMI: 20.2 Code: 78319-1 Heart Rate 1: 72 bpm Height: 5'10" Respiratory Rate: 12 bpm Weight: 139 lbs Functional Status No Functional Status data History of Present Illness Symptom Name Status Resu lt Effective Date Notes Quality chronic 08/17/2018 None Quality primary hypert [...] weeks ago 07/01/2017 None hypertension Quality [place] hypertension 06/21/2017 None hypertension Quality sta ble [...] th roat 01/25/2017 None hypertension Quality [place] hypertension 01/25/2017 None hypertension Onset and Resolution [...] fever 12/20/2016 None cough Location in the roat 12/01/2016 None cough Quality dry 12/01/2016 None cough Onset and Resolution ongoing 12/01/2016 None cough Onset of Symptom 1 months ago 12/01/2016 None cough Pertinent Findings Denies dyspnea 12/01/2016 None cough Pertinent Findings Denies fever 12/01/2016 None cough Location in the roat 11/25/2016 None cough Quality productive 11/25/2016 [...] discuss li sinopril and dosage and dr merlos rec hypertension Onset and Resolution ongoing 03/20/2012 None [...] discuss li sinopril and dosage and dr merlos rec hypertension Onset and Resolution ongoing 01/24/2012 None [...] Findings Denies weakness 12/09/2011 None hypertension [facility] 08/25/2011 None hypertension Onset [...] in onset 01/06/2011 October 27-November 08; also Augu st 9-25 abdominal pain Radiating [...] Encounters Encounter Performer Loca tion Codes Date ([id number]) 60028 EST. P ATIENT, LEVEL IV Diagnosis: Essential (primary) hypertension[ICD10: I10] Diagnosis: Gastro-esophageal reflux disease without esophagitis[ICD10: K21.9] Diagnosis: Alzheimer's disease with late onset[ICD10: G30.1] Ale Carlos MD, C CPT-4: 16980 08/17/2018 ([id number]) 97724 EST. 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 CPT-4: 86703 05/18/2018 ([id number]) 30141 EST. P ATIENT, LEVEL III Diagnosis: Essential (primary) hypertension[ICD10: I10] Ale Carlos MD, C CPT-4: 38089 04/13/2018 ([id number]) 94705 EST. P ATIENT, LEVEL IV Diagnosis: Irritable bowel syndrome with constipation[ICD10: K58.1] Diagnosis: Other lesions of oral mucosa[ICD10: K13.79] Diagnosis: Dry mouth, unspecified[ICD10: R68.2] Diagnosis: Encounter for immunization[ICD10: Z23] Diagnosis: Essential (primary) hypertension[ICD10: I10] Ale Carlos MD, C CPT-4: 26353 02/08/2018 ([id number]) 38008 EST. P ATIENT, LEVEL III Diagnosis: Slow transit constipation[ICD10: K59.01] Diagnosis: Dry mouth, unspecified[ICD10: R68.2] Nelly Carlos MD, [facility] CPT-4: 46362 01/19/2018 ([id number]) Miscellaneou s no charge Diagnosis: Acute pharyngitis, unspecified[ICD10: J02.9] Nelly Carlos MD, [facility] CPT-4: 08016 01/13/2018 ([id number]) 04415 EST. P ATIENT, LEVEL III Diagnosis: Candidal stomatitis[ICD10: B37.0] Diagnosis: Cough[ICD10: R05] Nelly Carlos MD, [facility] CPT-4: 82706 01/12/2018 ([id number]) 59048 EST. P ATIENT, LEVEL IV Diagnosis: Essential (primary) hypertension[ICD10: I10] Diagnosis: Generalized anxiety disorder[ICD10: F41.1] Diagnosis: Major depressive disorder, single episode, mild[ICD10: F32.0] Diagnosis: Slow transit constipation[ICD10: K59.01] Ale Carlos MD, [facility] CPT-4: 65430 01/05/2018 ([id number]) 46200 EST. P ATIENT, LEVEL IV Diagnosis: Irritable bowel syndrome with constipation[ICD10: K58.1] Diagnosis: Malignant neoplasm of prostate[ICD10: C61] Ale Carlos MD, [facility] CPT-4: 28694 11/14/2017 50699 EST. PATIENT, LEVEL IV Diagnosis: Slow transit constipation[ICD10: K59.01] Diagnosis: Gastro-esophageal reflux disease without esophagitis[ICD10: K21.9] Ruchi Carlos MD, [facility] CPT-4: 80621 2017 ([id number]) 75924 EST. P ATIENT, LEVEL IV Diagnosis: Essential (primary) hypertension[ICD10: I10] Diagnosis: Slow transit constipation[ICD10: K59.01] Diagnosis: Underweight[ICD10: R63.6] Diagnosis: Gastro-esophageal reflux disease without esophagitis[ICD10: K21.9] Ale Carlos MD, [facility] CPT-4: 09959 10/13/2017 ([id number]) 40550 EST. P ATIENT, LEVEL IV Diagnosis: Slow transit constipation[ICD10: K59.01] Diagnosis: Gastroparesis[ICD10: K31.84] Diagnosis: Gastro-esophageal reflux disease without esophagitis[ICD10: K21.9] Diagnosis: Dysuria[ICD10: R30.0] Ale Carlos MD, [facility] CPT-4: 97930 09/26/2017 ([id number]) 33749 EST. P ATIENT, LEVEL IV Diagnosis: Other abnormal glucose[ICD10: R73.09] Diagnosis: Slow transit constipation[ICD10: K59.01] Ale Carlos MD, [facility] CPT-4: 67304 09/12/2017 96460 EST. PATIENT, LEVEL III Diagnosis: Other fatigue[ICD10: R53.83] Ruchi Carlos MD, [facility] CPT-4: 77015 09/09/2017 ([id number]) 92716 EST. P ATIENT, LEVEL IV Diagnosis: Slow transit constipation[ICD10: K59.01] Diagnosis: Irritable bowel syndrome with constipation[ICD10: K58.1] Diagnosis: Essential (primary) hypertension[ICD10: I10] Ale Carlos MD, C CPT-4: 29721 08/17/2017 ([id number]) 70526 EST. P ATIENT, LEVEL III Diagnosis: Slow transit constipation[ICD10: K59.01] Diagnosis: Gastroparesis[ICD10: K31.84] Ale Carlos MD, [facility] CPT-4: 55483 07/20/2017 48373 EST. PATIENT, LEVEL III Diagnosis: Irritable bowel syndrome with constipation[ICD10: K58.1] Ruchi Carlos MD, [facility] CPT-4: 94230 07/01/2017 ([id number]) 65562 EST. P ATIENT, LEVEL IV Diagnosis: Essential (primary) hypertension[ICD10: I10] Diagnosis: Gas pain[ICD10: R14.1] Diagnosis: Generalized anxiety disorder[ICD10: F41.1] Diagnosis: Cervicalgia[ICD10: M54.2] Diagnosis: Pain in thoracic spine[ICD10: M54.6] Diagnosis: Unsteadiness on feet[ICD10: R26.81] Ale Carlos MD, [facility] CPT- 4: 70739 06/21/2017 ([id number]) 98263 EST. P ATIENT, LEVEL III Diagnosis: Essential (primary) hypertension[ICD10: I10] Ale Carlos MD, [facility] CPT-4: 95971 03/21/2017 81276 EST. PATIENT, LEVEL III Diagnosis: Other allergic rhinitis[ICD10: J30.89] Nelly Carlos MD, [facility] CPT-4: 70958 03/08/2017 ([id number]) 81935 EST. P ATIENT, LEVEL III Diagnosis: Encounter for immunization[ICD10: Z23] Diagnosis: Other hypotension[ICD10: I95.89] Ale Carlos MD, [facility] CPT-4: 80809 01/25/2017 ([id number]) 47835 EST. P ATIENT, LEVEL III Diagnosis: Essential (primary) hypertension[ICD10: I10] Diagnosis: Acute recurrent maxillary sinusitis[ICD10: J01.01] Ale Carlos MD, C CPT-4: 19873 12/20/2016 ([id number]) 25022 EST. P ATIENT, LEVEL III Diagnosis: Acute recurrent ethmoidal sinusitis[ICD10: J01.21] Ale Carlos MD, C CPT-4: 55833 12/01/2016 ([id number]) 82763 EST. P ATIENT, LEVEL III Diagnosis: Bronchitis, not specified as acute or chronic[ICD10: J40] Diagnosis: Cough[ICD10: R05] Ale Carlos MD, [facility] CPT-4: 65449 11/25/2016 ([id number]) 85684 EST. P ATIENT, LEVEL III Diagnosis: Cough[ICD10: R05] Diagnosis: Bronchitis, not specified as acute or chronic[ICD10: J40] Diagnosis: Candidal esophagitis[ICD10: B37.81] Ale Carlos MD, [facility] CPT- 4: 74842 11/18/2016 ([id number]) 64801 EST. P ATIENT, LEVEL IV Diagnosis: Essential (primary) hypertension[ICD10: I10] Diagnosis: Mild cognitive impairment, so stated[ICD10: G31.84] Ale Carlos MD, [facility] CPT-4: 21363 08/23/2016 ([id number]) 80663 EST. P ATIENT, LEVEL III Diagnosis: Essential (primary) hypertension[ICD10: I10] Ale Carlos MD, [facility] CPT-4: 78521 04/26/2016 ([id number]) Miscellaneou s no charge Diagnosis: Olecranon bursitis, right elbow[ICD10: M70.21] Nelly Carlos MD, [facility] CPT-4: 06115 02/09/2016 ([id number]) 92515 EST. P ATIENT, LEVEL III Diagnosis: Olecranon bursitis, right elbow[ICD10: M70.21] Nelly Carlos MD, [facility] CPT-4: 81192 02/03/2016 ([id number]) 83586 EST. P ATIENT, LEVEL III Diagnosis: Generalized abdominal tenderness[ICD10: R10.817] Ale Carlos MD, [facility] CPT-4: 30959 01/26/2016 74491 EST. PATIENT, LEVEL IV Diagnosis: Other allergic rhinitis[ICD10: J30.89] Ruchi Carlos MD, [facility] CPT-4: 80549 01/21/2016 ([id number]) 31740 EST. P ATIENT, LEVEL IV Diagnosis: Essential (primary) hypertension[ICD10: I10] Diagnosis: Hypo-osmolality and hyponatremia[ICD10: E87.1] Ale Carlos MD, [facility] CPT-4: 35224 12/29/2015 ([id number]) 63203 EST. P ATIENT, LEVEL IV Diagnosis: Essential (primary) hypertension[ICD10: I10] Diagnosis: Mild cognitive impairment, so stated[ICD10: G31.84] Ale Carlos MD, [facility] CPT-4: 39835 09/02/2015 ([id number]) 85547 EST. P ATIENT, LEVEL IV Diagnosis: Mixed hyperlipidemia[ICD10: E78.2] Diagnosis: Generalized anxiety disorder[ICD10: F41.1] Diagnosis: Mild cognitive impairment, so stated[ICD10: G31.84] Diagnosis: Essential (primary) hypertension[ICD10: I10] Diagnosis: Encounter for immunization[ICD10: Z23] Ale Carlos MD, [facility] CPT-4: 35145 05/06/2015 ([id number]) 79039 EST. 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 CPT-4: 73268 03/05/2015 ([id number]) 74774 EST. P ATIENT, LEVEL IV Diagnosis: ESSENTIAL HYPERTENSION[ICD9: 401.9] Diagnosis: GENERALIZED ANXIETY DISEASE[ICD9: 300.02] Diagnosis: MILD COGNITIVE IMPAIREMT[ICD9: 331.83] Diagnosis: IRRITABLE COLON[ICD9: 564.1] Ale Carlos MD, [facility] CPT-4: 65375 12/04/2014 ([id number]) 64117 EST. P ATIENT, LEVEL IV Diagnosis: Abdominal pain[ICD9: 789.00] Diagnosis: GENERALIZED ANXIETY DISEASE[ICD9: 300.02] Diagnosis: Hyponatremia[ICD9: 276.1] Diagnosis: ESSENTIAL HYPERTENSION[ICD9: 401.9] Nelly Carlos MD, [facility] CPT-4: 70139 09/24/2014 ([id number]) 07599 EST. P ATIENT, LEVEL IV Diagnosis: ESSENTIAL HYPERTENSION[ICD9: 401.9] Diagnosis: Osteoarthritis[ICD9: 715.90] Diagnosis: Mild cognitive impairment with memory loss[ICD9: 331.83] Ale Carlos MD, [facility] CPT-4: 77226 09/09/2014 ([id number]) 73116 EST. P ATIENT, LEVEL III Diagnosis: GENERALIZED ANXIETY DISEASE[ICD9: 300.02] Diagnosis: Depression[ICD9: 311] Ale Carlos MD, [facility] CPT-4: 37502 07/26/2014 ([id number]) 22448 EST. P ATIENT, LEVEL IV Diagnosis: ESSENTIAL HYPERTENSION[ICD9: 401.9] Diagnosis: GENERALIZED ANXIETY DISEASE[ICD9: 300.02] Diagnosis: MILD COGNITIVE IMPAIREMT[ICD9: 331.83] Ale Carlos MD, [facility] CPT-4: 38301 07/10/2014 ([id number]) 78505 EST. P ATIENT, LEVEL IV Diagnosis: Dizziness[ICD9: 780.4] Diagnosis: GENERALIZED ANXIETY DISEASE[ICD9: 300.02] Diagnosis: Depression[ICD9: 311] Diagnosis: ESSENTIAL HYPERTENSION[ICD9: 401.9] Diagnosis: Urinary frequency[ICD9: 788.41] Ale Carlos MD, [facility] CPT-4: 06826 06/06/2014 ([id number]) 42826 EST. P ATIENT, LEVEL IV Diagnosis: ESSENTIAL HYPERTENSION[ICD9: 401.9] Diagnosis: GENERALIZED ANXIETY DISEASE[ICD9: 300.02] Diagnosis: Mild cognitive impairment with memory loss[ICD9: 331.83] Ale Carlos MD, [facility] CPT-4: 55224 05/29/2014 ([id number]) 74654 EST. P ATIENT, LEVEL IV Diagnosis: Pneumonia[ICD9: 486] Diagnosis: COUGH[ICD9: 786.2] Diagnosis: Hyponatremia[ICD9: 276.1] Diagnosis: ALLERGIC RHINITIS[ICD9: 477.9] Ale Carlos MD, [facility] CPT-4: 22414 05/20/2014 ([id number]) 24070 EST. P ATIENT, LEVEL III Diagnosis: ESSENTIAL HYPERTENSION[ICD9: 401.9] Diagnosis: Cough[ICD9: 786.2] Ale Carlos MD, [facility] CPT-4: 36594 03/25/2014 ([id number]) 92957 EST. P ATIENT, LEVEL III Diagnosis: COUGH[ICD9: 786.2] Diagnosis: ALLERGIC RHINITIS[ICD9: 477.9] Nelly Carlos MD, [facility] CPT- 4: 56407 02/08/2014 ([id number]) 60265 EST. P ATIENT, LEVEL III Diagnosis: ESSENTIAL HYPERTENSION[ICD9: 401.9] Diagnosis: Nasal congestion[ICD9: 478.19] Ale Carlos MD, [facility] CPT-4: 82697 12/24/2013 ([id number]) 90940 EST. P ATIENT, LEVEL III Diagnosis: Seasonal allergies[ICD9: 477.9] Diagnosis: Nasal congestion[ICD9: 478.19] Diagnosis: ABNORMAL LOSS OF WEIGHT[ICD9: 783.21] Ale Carlos MD, [facility] CPT-4: 95168 11/20/2013 ([id number]) 59419 EST. P ATIENT, LEVEL III Diagnosis: ABNORMAL LOSS OF WEIGHT[ICD9: 783.21] Diagnosis: MALAISE AND FATIGUE[ICD9: 780.79] Diagnosis: Hyponatremia[ICD9: 276.1] Nelly Carlos MD, [facility] CPT- 4: 94638 10/30/2013 ([id number]) 36823 EST. P ATIENT, LEVEL III Diagnosis: Acute maxillary sinusitis[ICD9: 461.0] Diagnosis: COUGH[ICD9: 786.2] Ale Carlos MD, [facility] CPT-4: 01935 10/08/2013 ([id number]) 29305 EST. P ATIENT, LEVEL IV Diagnosis: ESSENTIAL HYPERTENSION[SNOMED: 75053893] Diagnosis: GENERALIZED ANXIETY DISEASE[ICD9: 300.02] Diagnosis: OSTEOARTH NOS-UNSPEC[ICD9: 715.90] Diagnosis: Coronary artery disease[ICD9: 414.00] Ale Carlos MD, [facility] CPT-4: 66222 06/18/2013 ([id number]) 40792 EST. P ATIENT, LEVEL III Diagnosis: ESSENTIAL HYPERTENSION[SNOMED: 09016502] Ale Carlos MD, [facility] CPT-4: 80566 04/04/2013 ([id number]) 85235 EST. P ATIENT, LEVEL IV Diagnosis: ESSENTIAL HYPERTENSION[SNOMED: 04635221] Diagnosis: Leukopenia[ICD9: 288.50] Diagnosis: Encounter for long-term (current) use of other medications[ICD9: V58.69] Ale Carlos MD, [facility] CPT-4: 82482 02/19/2013 ([id number]) 19525 EST. P ATIENT, LEVEL IV Diagnosis: ESSENTIAL HYPERTENSION[SNOMED: 48419649] Diagnosis: MILD COGNITIVE IMPAIREMT[ICD9: 331.83] Ale Carlos MD, [facility] CPT-4: 84642 10/16/2012 ([id number]) 73079 EST. P ATIENT, LEVEL IV Diagnosis: ESSENTIAL HYPERTENSION[SNOMED: 08221018] Diagnosis: GENERALIZED ANXIETY DISEASE[ICD9: 300.02] Diagnosis: IRRITABLE COLON[ICD9: 564.1] Ale Carlos MD, [facility] CPT-4: 93290 03/20/2012 48829 EST. PATIENT, LEVEL IV Diagnosis: ESSENTIAL HYPERTENSION[SNOMED: 83878954] Diagnosis: Osteoarthritis[ICD9: 715.90] Diagnosis: HYPERLIPIDEMIA[ICD9: 272.4] Ale Carlos MD, [facility] CPT-4: 59377 01/24/2012 14252 EST. PATIENT, LEVEL IV Diagnosis: ESSENTIAL HYPERTENSION[SNOMED: 48205694] Diagnosis: BPH W URINARY OBS/LUTS[ICD9: 600.01] Ale Carlos MD, [facility] CPT-4: 37722 12/20/2011 [id number] 91769 EST. P ATIENT, LEVEL III Diagnosis: Lump in the groin[ICD9: 789.30] Ale Carlos MD, [facility] CPT-4: 61237 12/09/2011 ([id number]) 45385 EST. P ATIENT, LEVEL IV Diagnosis: ESSENTIAL HYPERTENSION[SNOMED: 60659560] Diagnosis: Mild cognitive impairment[ICD9: 331.83] Ale Carlos MD, [facility] CPT-4: 75436 08/25/2011 [id number]) 09390 EST. P ATIENT, LEVEL IV Diagnosis: ESSENTIAL HYPERTENSION[SNOMED: 09375452] Diagnosis: GENERALIZED ANXIETY DISEASE[ICD9: 300.02] Diagnosis: MILD COGNITIVE IMPAIREMT[ICD9: 331.83] Diagnosis: IRRITABLE COLON[ICD9: 564.1] Ale Carlos MD, [facility] CPT-4: 00564 06/23/2011 ([id number]) 09675 EST. 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 PATIENT, LEVEL I Diagnosis: ESSENTIAL HYPERTENSION[SNOMED: 02511158] Ale Carlos MD, [facility] CPT-4: 21085 03/23/2011 84120 EST. PATIENT, LEVEL III Diagnosis: ESSENTIAL HYPERTENSION[SNOMED: 89064241] Diagnosis: Laceration of finger, index[ICD9: 883.0] Ale Carlos MD, C CPT-4: 38617 03/08/2011 83725 EST. PATIENT, LEVEL III Diagnosis: ESSENTIAL HYPERTENSION[SNOMED: 09097658] Diagnosis: Irritable bowel syndrome (IBS)[ICD9: 564.1] Ale Carlos MD, C CPT-4: 28527 03/01/2011 38882 EST. PATIENT, LEVEL IV Diagnosis: Mild cognitive impairment with memory loss[ICD9: 331.83] Diagnosis: GENERALIZED ANXIETY DISEASE[ICD9: 300.02] Diagnosis: Bruising[ICD9: 924.9] Diagnosis: HYDROCELE[ICD9: 603.9] Ale Carlos MD, [facility] CPT-4: 95257 02/01/2011 36216 EST. PATIENT, LEVEL III Diagnosis: Testicular pain[ICD9: 608.9] Diagnosis: GENERALIZED ANXIETY DISEASE[ICD9: 300.02] Nelly Carlos MD, [facility] CPT-4: 53393 01/27/2011 61799 EST. PATIENT, LEVEL III Diagnosis: Arm bruise[ICD9: 923.9] Nelly Carlos MD, [facility] CPT-4: 12007 01/26/2011 OFFICE VISIT, NEW - LEVEL 4 Diagnosis: DIARRHEA[ICD9: 787.91] Diagnosis: Elevated liver function tests[ICD9: 790.6] Diagnosis: Abdominal discomfort[ICD9: 789.00] Ale Carlos MD, [facility] CPT- 4: 43527 01/06/2011 Plan of Care Planned Activity Notes [...] this medication. 08/17/2018 Appointment: Ale Carlos WPtel: [phone] [facility] (15 min) Moderate 08/17/2018 Patient Education: Patient [...] debridement. 05/18/2018 Appointment: Ale Carlos WPtel: [phone] [facility] (15 min) Moderate 05/18/2018 Patient Education: Patient [...] discomfort. 04/13/2018 Appointment: [phone] ([facility]) Complex 04/13/2018 Patient Education: Patient [...] GI upset. 02/08/2018 Appointment: Ale Carlos WPtel: [facility] (30 min) Complex 02/08/2018 Patient Education: Patient Medication Summary Completed 02/08/2018 Patient Education: Hypertension Completed 02/08/2018 Appointment: Nelly Keen WPtel: [phone] (15 min) Moderate 02/02/2018 Visit Plan: Xfyeqlbfperj-uskgrwc-hh start trulance 3mg daily Dry mouth-biotene mouth spray 01/19/2018 Appointment: Ale Carlos WPtel: [facility] (30 min) Complex 01/19/2018 Patient Education: Patient [...] concerns 01/12/2018 Appointment: Nelly Keen WPtel: [phone] (15 min) Moderate 01/12/2018 Patient Education: Patient [...] be helping his symptoms. He is reporting tick eradicator pain - i suspect that some of this is due to his eating early at night then taking at least 10 pills at bedtime without any food in his stomach, then excessive acid production with the pill burden causing him to wake up with pain in the tick eradicator hours. I have recommended that he is to eat 1/2 a sandwich with his ensure at bedtime. 01/05/2018 Appointment: Ale Carlos [facility]el[phone] [place] (15 min) Moderate 01/05/2018 Patient Education: Patient Medication Summary Completed 01/05/2018 Appointment: Ale Carlos [facility]Ptel[phone] (30 min) Complex 01/04/2018 Visit Plan: Irritable [...] 11/03/2017 Care Plan: Referral Order SNOMED-CT : [id number] Pending 10/28/2017 Visit Plan: Constipation - uncontro [...] not improving. 2017 Appointment: R[facility] Agee [phone] [place] (15 min) Moderate 2017 Patient Education: Patient [...] portion size. 10/13/2017 Appointment: Ale Carlos WPtel: [facility] (30 min) Complex 10/13/2017 Patient Education: Patient [...] the medication. 09/26/2017 Appointment: Ale Carlos WPtel: [phone] [facility] (15 min) Moderate 09/26/2017 Patient Education: Patient Medication Summary Completed 09/26/2017 Appointment: Ale Carlos WPtel: [facility] (30 min) Complex 09/14/2017 Visit Plan: [...] the ER. 09/12/2017 Appointment: Ale Carlos WPtel: [facility] (30 min) Complex 09/12/2017 Patient Education: Patient Medication Summary Completed 09/12/2017 Visit Plan: Ongoing fatigue - persi stent - will check labs and treat as indicated - pt is to notify clinic if symptoms do not improve, if they worsen, or with any changes, questions, or concerns. 09/09/2017 Appointment: Ruchi Agee WPtel: [facility] (30 min) Complex 09/09/2017 Patient Education: Patient [...] at home. 08/17/2017 Appointment: Ale Carlos WPtel: [facility] (15 min) Moderate 08/17/2017 Patient Education: Patient [...] regular foods. 07/20/2017 Appointment: Ale Carlos WPtel: [facility] (30 min) Complex 07/20/2017 Appointment: Ale Carlos WPtel: [facility] (30 min) Complex 07/20/2017 Patient Education: Patient Medication Summary Completed 07/20/2017 Appointment: Ale Carlos WPtel: [facility] (30 min) Complex 07/19/2017 Appointment: Ale Carlos WPtel: [facility] (15 min) Moderate 07/18/2017 Visit Plan: Constipation [...] this regimen. 07/01/2017 Appointment: Ruchi Agee WPtel: [facility] (30 min) Complex 07/01/2017 Appointment: Ruchi Ageetel: [phone] [facility] (30 min) Complex 07/01/2017 Patient Education: Patient Medication Summary Completed 07/01/2017 Visit Plan: Neck and upper back reji n and gait unsteadiness - referral to [facility] cast[facility] for upper and low back pain and left arm pain and have gait eval. get Aspercreme from [employer] for your upper neck/upper back. Abdominal upset/cramping - lactaid pills - take before you drink milk or eat cheese or ice cream or yogurt use gas-ex one pill three times daily Chronic anxiety - stable - continue with current management. 06/21/2017 Appointment: Ale Carlos WPtel: [phone] [facility] (30 min) Complex 06/21/2017 Patient Education: [...] home. 03/21/2017 Appointment: Ale Carlos WPtel: [phone] [facility] (30 min) Complex 03/21/2017 Patient Education: [...] spray. 03/08/2017 Appointment: Nelly Keen WPtel: [phone] (30 min) Complex 03/08/2017 Patient Education: Patient [...] flu shot 01/25/2017 Appointment: Ale Carlos WPtel: [facility]66[facility] (30 min) Complex 01/25/2017 Patient Education: [...] not improving. 12/20/2016 Appointment: Ale Carlos WPtel: [facility] (30 min) Complex 12/20/2016 Patient Education: Patient Medication Summary Completed 12/20/2016 Patient Education: Hypertension Completed 12/20/2016 Appointment: Ruchi Agee WPtel: [phone] [place] [address] - Annual Wellness Visit 12/03/2016 Visit Plan: [...] acutely worsen. 11/25/2016 Appointment: Ale Carlos WPtel: [facility] (15 min) Moderate 11/25/2016 Patient Education: Patient [...] have thrush. 11/18/2016 Appointment: Ale Carlos WPtel: [phone] [facility] (15 min) Moderate 11/18/2016 Patient Education: [...] and namenda. labs to be done from [facility] 08/23/2016 Appointment: Ale Carlos WPtel: [phone] [facility] (30 min) Complex 08/23/2016 Patient Education: [...] home. 04/26/2016 Appointment: Ale Carlos WPtel: [phone] [facility] (30 min) Complex 04/26/2016 Patient Education: Patient Medication Summary Completed 04/26/2016 Visit Plan: Joint effusion - recomm ended drainage and referral to orthopedic surgeon for surgical debridement of bursa 02/17/2016 Appointment: Ale Carlos WPtel: [phone] [facility] (30 min) Complex 02/17/2016 Patient Education: Patient Medication Summary Completed 02/17/2016 Visit Plan: Bursitis-right elbow-dr healy today in the office- increase anti inflammatories for the next 5 days as directed-call if symptoms do not resolve, swelling returns or new symptoms develop-patient verbalized understanding of plan. 02/09/2016 Appointment: Nelly Keen WPtel: [phone] (30 min) Complex 02/09/2016 Patient Education: Patient Medication Summary Completed 02/09/2016 Patient Education: Patient Medication Summary Completed 02/05/2016 Care Plan: Metabolic Pending 02/05/2016 Visit Plan: Bursitis-right elbow-dr healy today in the office- increase anti inflammatories for the next 5 days as directed-call if symptoms do not resolve, swelling returns or new symptoms develop-patient verbalized understanding of plan. 02/03/2016 Appointment: Nelly Keen WPtel: [phone] (30 min) Complex 02/03/2016 Patient Education: Patient Medication Summary Completed 02/03/2016 Patient Education: Patient Medication Summary Completed 01/30/2016 Care Plan: Metabolic Due on Pending 01/30/2016 Visit Plan: Abdominal pain - nausea - Pt to have IV fluids at hospital 01/26/2016 Appointment: Ale Carlos WPtel: [facility]66[facility] (30 min) Complex 01/26/2016 Patient Education: [...] allergy spray. 01/21/2016 Appointment: Nelly Keen WPtel: [phone] (30 min) Complex 01/21/2016 Patient Education: Patient [...] treatment. 09/02/2015 Appointment: Ale Carlos [facility]Ptel: [phone] (15 min) Moderate 09/02/2015 Patient Education: Patient [...] today 05/06/2015 Appointment: Ale Carlos WPtel: [phone] (15 min) Moderate 05/06/2015 Patient Education: Patient Medication Summary Completed 05/06/2015 Patient Education: Hypertension Completed 05/06/2015 Care Plan: COMPLETE CBC AUTOMATED LOINC : 12944-9 Ordered 05/06/2015 Visit Plan: Hypertension - well [...] current medications. 03/05/2015 Appointment: Ale Carlos WPtel: [facility] (30 min) Complex 03/05/2015 Patient Education: [...] improved. 12/04/2014 Appointment: [facility] Follow up 12/04/2014 Patient Education: Patient Medication [...] Plan: CT ABD & PELV 1/> [employer] : 15853-9 Ordered 09/24/2014 Visit Plan: Hypertension - well [...] THAT HE SHOULD NOT BE DRIVING TO [facility] 07/26/2014 Appointment: Sick 07/26/2014 Appointment: [facility] 07/26/2014 Patient Education: Patient Medication Summary Completed [...] not include a medication list. 07/10/2014 Appointment: Terrance Ale WPtel: [facility] Follow up 07/10/2014 Patient Education: Patient Medication Summary Completed 07/10/2014 Patient Education: Hypertension Completed 07/10/2014 Appointment: Ale Carlos WPtel: [address] [place], [place] [phone] Follow up 06/20/2014 Appointment: Ale Carlos WPtel: [facility] Follow up 06/10/2014 Visit Plan: Anxiety [...] in blood pressure readings at home. Urinary wqasfwbbu-HEJ-oybbgy flomax to bedtime Dizziness-stop hydrocodone and ativan [...] 3 WEEKS 05/29/2014 Appointment: Ale Carlos WPtel: [facility] Sick 05/29/2014 Patient Education: Patient Medication Summary Completed 05/29/2014 Patient Education: Hypertension Completed 05/29/2014 Appointment: Ale [facility]el[facility] Lab Draw 05/23/2014 Patient Education: Patient Medication Summary Completed 05/23/2014 Visit Plan: Pneumonia - Pt has been diagnosed with pneumonia by physical exam. A chest xray has been ordered as have antibiotics. The pt is aware of the diagnosis and the need for acute treatment of this illness. A mqzhuvyx-bhgmp-wlyxmhz flonase nasal spray Hyponatremia-increase gatorade as directed [...] for acute treatment of this illness. A mhbnawum-ljbjn-fsufqrt flonase nasal spray Hyponatremia-increase gatorade as directed 05/20/2014 Patient Education: Patient Medication Summary Completed 05/20/2014 Appointment: Ale [facility]el[facility] [place] Injection 03/26/2014 Patient Education: Patient Medication [...] Dr. Merlos. 03/25/2014 Appointment: [facility]el[facility] Follow up 03/25/2014 Patient Education: Patient Medication Summary Completed 03/25/2014 Patient Education: Hypertension Completed 03/25/2014 Visit Plan: Znhbg-tpnynonds-umagefk laryngeal reflux-RX for protonix (patient is on [...] at home. 12/24/2013 Appointment: Ale Carlos WPtel: [address] [place], [place] [address] Follow up 12/24/2013 Patient Education: Patient Medication [...] portion size. 11/20/2013 Appointment: Ale Carlos WPtel: [address] [place], [place] [phone] Follow up 11/20/2013 Patient Education: Patient Medication Summary Completed 11/20/2013 Appointment: Ale Carlos WPtel: [address] [place], [place] [phone] Follow up 11/06/2013 Visit Plan: Weight loss-increase po rtions-add snacks in the morning and afternoon-follow up in 3 weeks for weight check Low sodium-check labs-restart gatorade Qjocyol-kighwl-rpjtr labs and UA 10/30/2013 Patient Education: Patient Medication Summary Completed 10/30/2013 Appointment: Ale Carlos WPtel: [address] [place], [place] [phone] Follow up 10/16/2013 Visit Plan: Sinusitis - [...] Merlos. 06/18/2013 Appointment: Ale [facility]el[facility] Follow up 06/18/2013 Patient Education: Patient Medication [...] concerns. 04/04/2013 Appointment: Ale [facility]Ptel[facility] [place] Follow up 04/04/2013 Patient Education: Patient [...] report. 02/19/2013 Appointment: Ale [facility]el[facility] Follow up 02/19/2013 Patient Education: Patient Medication [...] memory loss. 10/16/2012 Appointment: Ale [facility]el[facility] Follow up 10/16/2012 Patient Education: Patient Medication [...] colon return. 06/19/2012 Appointment: Ale Carlos WPtel: [facility] Follow up 06/19/2012 Patient Education: Patient Medication [...] the bentyl. 03/20/2012 Appointment: Ale Carlos WPtel: [facility] Follow up 03/20/2012 Patient Education: Patient Medication Summary Completed 03/20/2012 Patient Education: High Blood Pressure: Essential Hypertension Completed 03/20/2012 Appointment: Ale Carlos WPtel: [facility] Follow up 02/22/2012 Visit Plan: Hypertension [...] as needed. 01/24/2012 Appointment: Ale Carlos WPtel: [facility] Follow up 01/24/2012 Patient Education: Patient Medication [...] have the biopsy until okayed by his credit collections rep.. I anticipate it will be at least 4-6 months before he can be off of the plavix and aspirin for additonal procedures unless it is of extreme urgency. 12/20/2011 Appointment: Ale Carlos WPtel: [address] [place] [id number] [place] Follow up 12/20/2011 Patient Education: Patient Medication Summary Completed 12/20/2011 Patient Education: High Blood Pressure: Essential Hypertension Completed 12/20/2011 Appointment: Ale Carlos WPtel: [address] [place] [id number] [place] Other 12/13/2011 Visit Plan: Pain in groin post hear t cath with increased discomfort and increased size - will order an ultrasound for today. 12/09/2011 Appointment: Ale Carlos WPtel: [facility] Other 12/09/2011 Patient Education: Patient Medication Summary [...] either medication. 08/25/2011 Appointment: Ale Carlos WPtel: [address] [place], [place] [phone] [place] Other 08/25/2011 Patient Education: Patient Medication [...] low doses. 06/23/2011 Appointment: Ale Carlos WPtel: [address] [place], [place] [phone] [place] Other 06/23/2011 Patient Education: Patient Medication Summary Completed 06/23/2011 Patient Education: High Blood Pressure: Essential Hypertension Completed 06/23/2011 Appointment: Ale Carlos WPtel: [address] [place], [place] [phone] [place] Other 04/26/2011 Visit Plan: Hypertension - well [...] seeds, etc. 04/19/2011 Appointment: Ale Carlos WPtel: [facility] Other 04/19/2011 Patient Education: Patient Medication Summary Completed 04/19/2011 Patient Education: High Blood Pressure: Essential Hypertension Completed 04/19/2011 Patient Education: Diverticulosis Diet Completed 04/19/2011 Appointment: Nelly Keen WPtel: [id number] Other 03/23/2011 Patient Education: Patient Medication Summary Completed 03/23/2011 Patient Education: High Blood Pressure: Essential Hypertension Completed 03/23/2011 Visit Plan: Record blood pressure a nd heart rate at home and drop the readings by the office in two weeks. No change in medications today. Laceration - removed suture today - pt to call if any complications arise. 03/08/2011 Appointment: Ale Carlos WPtel: [facility] Other 03/08/2011 Patient Education: Patient Medication [...] day. 03/01/2011 Appointment: Ale Carlos [facility]Ptel: [facility] [place] Other 03/01/2011 Patient Education: Patient Medication Summary Completed 03/01/2011 Patient Education: High Blood Pressure: Essential Hypertension Completed 03/01/2011 Appointment: Nelly Keen [facility]Ptel: [id number] [place] Injection 02/25/2011 Patient Education: Patient Medication Summary Completed 02/25/2011 Appointment: Ale Carlos [facility]Ptel: [facility] [place] Injection 02/16/2011 Patient Education: Patient Medication Summary Completed 02/16/2011 Appointment: Ale Carlos [facility]Ptel: [facility] [place] Injection 02/09/2011 Patient Education: Patient Medication Summary Completed 02/09/2011 Appointment: Ale Carlos [facility]Ptel: [facility] [place] Follow up 02/02/2011 Visit Plan: Hydrocele [...] with his son - Kenji Dash in [place]. Upon our conversation vczf-ekh-swlqq, Kenji vocalized concerns for his Dad's memory. He stated that he has noticed his father not being as quick in his cognitive functioning, he has noticed some concerns with driving as well. He states that he will discuss these concerns with his parents and other siblings. 02/01/2011 Appointment: Ale Carlos WPtel: [facility] [address] Other 02/01/2011 Patient Education: Patient Medication Summary [...] as needed. 01/27/2011 Appointment: Ale Carlos WPtel: [address] [place] [address] New Patient 01/27/2011 Patient Education: Patient Medication Summary Completed 01/27/2011 Visit Plan: Bruising/hematoma left arm-discussed natural and expected course of this diagnosis and to alert me if symptoms do not follow expected course or if any worse, Continue with ice/heat as needed for disc omfort. Call for any concerns. 01/26/2011 Appointment: Nelly Keen WPtel: [id number] [place] [address] Other 01/26/2011 Patient Education: Patient Medication Summary [...] course. 01/15/2011 Appointment: Nelly Keen WPtel: [id number] Other 01/15/2011 Patient Education: Patient Medication Summary [...] diet. 01/06/2011 Appointment: Ale Carlos [facility]Ptel: [facility] [place] New Patient 01/06/2011 Patient Education: Patient Medication Summary Completed 01/06/2011 Referral: External, Ordering Provider Referral Relationship Instructions Comment . Pneumonia - Pt has been diagnosed with pneumonia by physical exam. A chest xray has been ordered as have antibiotics. The pt is aware of the diagnosis and the need for acute treatment of this illness. Tidxfeljx-berif-eivehco flonase nasal spray Hyponatremia-increase gatorade as directed ADDENDUM: RECOMMEND PATIENT START ON ALBUTEROL NEBULIZER TREATMENTS EVERY 4 HOURS NEEDED FOR SHORTNESS OF BREATH/WHEEZING. DX SECONDARY PNEUMONIA FROM INFLUENZA, COUGH . Thrush -okay to re start the [...] needed for discomfort. Call for any concerns. Nasal spray- use twi ce daily, one [...] if symptoms not improved on this regimen. CHECK LABS-CBC, CMP, UA WITH C&S IF INDICATED . Weight loss-increase portions-add snac ks in the morning and afternoon-follow up in 3 weeks for weight check Low sodium-check labs-restart gatorade Ijlaclx-zhjndl-nfctw labs and UA . Hypertension - wel l controlled - [...] at night. Underweight - increase portion size. INCREASE YOUR MELOXI CAM (MOBIC) TO 1/2 [...] need for acute treatment of this illness. Oquezwloo-zktce-qrtsnkj flonase nasal spray Hyponatremia-increase gatorade as directed Dr. Carlos talked to Dr. Merlos today [...] as follows: Dr. Carlos talked to Dr. eMrlos today - He requested that we have you STOP the AMLODIPINE (brand name is NORVASC) - His office will call you to set up an appointment for NEXT WEEK. Keep track of your blood pressures at home, call the office if they are above 160 for the top number or consistently above 110 for the bottom number flu shot . Hypertension - wel l controlled - [...] situational exposure. No change in current medications. stop the multivitami n stop the calcium [...] be helping his symptoms. He is reporting tick eradicator pain - i suspect that some of this is due to his eating early at night then taking at least 10 pills at bedtime without any food in his stomach, then excessive acid production with the pill burden causing him to wake up with pain in the tick eradicator hours. I have recommended that he is to eat 1/2 a sandwich with his ensure at bedtime. . Abdominal pain - n ausea - [...] instructions - will refer back to Dr. [place] for ongoing abd pain - I have [...] if the symptoms are not improving. . Bronchitis - acute but improving - case of bronchitis - Pt has been given antibiotics, breathing treatments as appropriate, and pt has been instructed to call if symptoms are not improved, or if symptoms acutely worsen. I sent a prescriptio n of generic zyrtec to [facility] - if it is expensive get the [...] and cbc prevnar 13 injection today . Abdominal symptoms with elevated liver enzymes- [...] the lactose free diet. . Hypertension - wel l controlled - [...] have the biopsy until okayed by his credit collections rep.. I anticipate it will be at least 4-6 months before he can be off of the plavix and aspirin for additonal procedures unless it is of extreme urgency. . Pain in groin post heart cath with increased discomfort and increased size - will order an ultrasound for today. . Hypertension - wel l controlled - [...] GI issues while on this medication. . Joint effusion - r ecommended drainage [...] treatments which can avoid rectal irritation. . Allergies - recomm ended pt to [...] or with any changes, questions, or concerns. call the office in 2 weeks - [...] twice HTN-well controlled-no change in treatment . Ucywx-nwxpjsghu-xw spect laryngeal reflux-RX for protonix (patient is [...] dose of either medication. . Hypertension - wel l controlled [...] continue with treatment per Dr. Merlos. . Chronic Depression and anxiety-improved over the past several weeks- the pt has symptoms of chronic anxiety and depression that have been fairly well controlled since the last office visit. The pt has expected periods of exacerbation with abatement of the symptoms with change in situational exposure. No change in current medications. INSTRUCTED PATIENT THAT HE SHOULD NOT BE DRIVING TO [facility] . Record blood press ure and heart [...] improving. Anxiety -has improved. get Aspercreme from [employer] for your upper neck/upper back. lactaid pills - take before you drink milk or eat cheese or ice cream or yogurt use gas-ex one pill three times daily . Neck and upper back pain and gait unst eadiness - referral to [facility] for upper and low back pain and left arm pain and have gait eval. get Aspercreme from [employer] for your upper neck/upper back. Abdominal upset/cramping [...] use of mobic at low doses. . Nocturia-defer daina atment to Dr. Quintero. Continue with proscar and flomax. Return to follow up with Dr. Quintero on Tuesday as scheduled. Call if unable to void, fever, other concerns, etc. Abdominal bloating, gas-recommend lactobacillus 1 po twice daily while on antibiotics. Diarrhea-resolved per patient report. Finish antibiotics for full course. PT ADMITTED TO HOSPITAL IN THE EVENING OF 01/15/11 [address]ointment [address] [place] [address] Carlos. Recommend Lactobacillus 1 orally [...] protein and portion size. . Hydrocele and vari cocele- Recommend wearing [...] with his son - Kenji Dash in [place]. Upon our conversation szit-xyi-xhogk, Kenji vocalized concerns for his Dad's memory. He stated that he has noticed his father not being as quick in his cognitive functioning, he has noticed some concerns with driving as well. He states that he will discuss these concerns with his parents and other siblings. for now - keep on e Miralax [...] change in blood pressure readings at home. stop losartan - [facility] k blood pressure and heart rate twice [...] spray -it is over the counter . Bguhnwzwknow-agxcvxd-abmdljf trulance 3mg daily Dry mouth-biotene mouth spray [...] the glyburide as prescribed through the ER. Blood pressure check today in the office-improving. [...] labs to be done from [facility] if you are still segundo ing protonix [...] at home. Pt is to try 1/2 pil l [...] for antibiotic nasal spray . Hypertension - wel l controlled - [...] in blood pressure readings at home. Urinary yghfvujdn-DLM-eezqkg flomax to bedtime Dizziness-stop hydrocodone and ativan [...] to call for acute concerns. decrease CELEXA (gen ernie name is citalopram) [...] MIKAELA if symptoms of irritable colon return. sour candies - like kendrick jolly ranchers [...]
--- OUTSIDE RECORDS SUMMARY | 2019-07-16 07:22 | XMS REPORT | CCD ---
Author Author Kenenth Calros Organization Ale Carlos MD, [facility] Address [address] [place] [address] Phone Care Team Providers Care Research Technician Name Role Phone Ale Carlos PP Unavailable CCM Unavailable Summary Purpose Interface Exchange Insurance Providers Payer name Policy type / Coverage type Covered alliance party ID Effective Begin Date Effective End Date WPS Medicare Part B Medicare Part B [id number] Unknown Unknown [facility] icare Part B [id number] Unknown Unk nown Family history Runs in the family Diagnosis Age At Onset No Family Disease Entered N/A Mother Diagnosis Age At Onset No Family Disease Entered N/A Father Diagnosis Age At Onset Heart disease Unknown Social History Social History Element Codes Description Effective Dates Number of children Unknown 3 ([place], [place], [place]) 10/14/19 18 Living arrangements Unknown House 01/11/2011 Number of adults in household Unknown 2 01/11/2011 Education level Unknown Post-Graduate PHD in chemistry 01/11/2011 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 Unknown Has never used illegal drugs 011 Allergies, Adverse Reactions, Alerts Substance Reaction Codes Entered Date Inactivated Date Status * NO KNOWN FOOD NAYE RGIES Unknown 04/19/2011 No Inactive Date Active Toradol RxNorm: 16104 03/05/2011 No Inactive Date Active Lisinopril cough, [...] Date Stop Date Sta tus Fill Instructions mirtazapine 15 mg ta blet RxNorm: 905100 TAKE ONE TABLET BY MO UTH EVERY DAY 10/25/2018 10/19/2019 Ac tive Namenda 10 mg tablet RxNorm: 428541 Tablet(s) TAKE 1 TABLET BY MOUTH TWICE D AILY. 08/18/2018 No Stop Date Active clopidogrel 75 mg ta blet RxNorm: 828959 TAKE 1 TABLET BY MOUT H EVERY DAY 08/14/2018 02/09/2019 Ac tive amlodipine 10 mg tablet RxNorm: 678243 TAKE 1 TABLET BY MOUTH EVERY DAY 07/14/2018 07/23/2018 In active clopidogrel 75 mg ta blet RxNorm: 063987 TAKE 1 TABLET BY MOUT H EVERY DAY 06/23/2018 12/19/2018 Ac tive Zantac 150 mg tablet RxNorm: 440286 1 TABLET(S) PO QAM 06/12/2018 01/07/2019 Active lisinopril 20 mg tablet RxNorm: 003785 TAKE 1 TABLET DAILY 06/05/2018 07/23/2018 Inactive triamterene 37.5 mg- hydrochlorothiazide 25 mg tablet RxNorm: 691563 1 Tablet(s) PO daily 05/18/2018 12/13/2018 Active cetirizine 10 mg tablet RxNorm: 9706289 TABLET(S) 1 TABLET(S) PO DAILY TO TAKE I NSTEAD OF THE CLARITIN 03/13/2018 02/05/2019 Active amlodipine 10 mg tablet RxNorm: 067873 TAKE 1 TABLET BY MOUTH EVERY DAY 03/09/2018 07/23/2018 In active fluticasone 50 mcg/a ctuation nasal spray,suspension RxNorm: 4565411 1 [facility] NASAL BID 02/08/2018 No Stop Date Active fluticasone 50 mcg/a ctuation nasal spray,suspension RxNorm: 7046276 1 [facility] NASAL BID 02/08/2018 02/07/2018 Inactive Trulance 3 mg tablet RxNorm: 9187835 1 Tablet(s) PO QAM 01/19/2018 08/16/2018 Inactive cefdinir 300 mg capsule RxNorm: 947207 1 Capsule(s) PO BID 12/28/2017 01/03/2018 Inactive cefdinir 300 mg capsule RxNorm: 849069 1 Capsule(s) PO BID 12/28/2017 12/27/2017 Inactive clopidogrel 75 mg ta blet RxNorm: 588970 TAKE 1 TABLET BY MOUT H EVERY DAY 12/26/2017 06/22/2018 In active Namenda 10 mg tablet RxNorm: 612030 Tablet(s) TAKE 1 TABLET BY MOUTH TWICE D AILY. 12/15/2017 08/17/2018 Inactive Robinul 1 mg tablet RxNorm: 012989 1/2 Tablet(s) PO AC & HS 12/12/2017 12/14/2017 Inactive Robinul 1 mg tablet RxNorm: 196325 1/2 Tablet(s) PO AC & HS 12/12/2017 12/11/2017 Inactive donepezil 10 mg tablet RxNorm: 464196 1 TABLET(S) PO DAILY TAKE 1 TABLET BY [facility] ONCE DAILY 12/08/2017 12/11/2017 Inactive Patient requests 90 days supply lisinopril 20 mg tablet RxNorm: 316743 TAKE 1 TABLET DAILY 12/05/2017 01/11/2018 Inactive Cymbalta 30 mg capsu le,delayed release RxNorm: 190780 1 Capsule(s) PO daily 12/05/2017 12/04/2017 In active Cymbalta 30 mg capsu le,delayed release RxNorm: 203832 1 Capsule(s) PO daily 12/05/2017 12/05/2017 In active Trulance 3 mg tablet RxNorm: 3270875 1 Tablet(s) PO daily 11/14/2017 12/13/2017 Inactive Linzess 145 mcg capsule RxNorm: 1046536 1 Capsule(s) PO daily 10/28/2017 12/14/2017 Inactive Zantac 150 mg tablet RxNorm: 511258 1 Tablet(s) PO QAM 10/13/2017 01/04/2018 Inactive mirtazapine 15 mg ta blet RxNorm: 690016 TAKE ONE TABLET BY [facility] EVERY DAY 09/29/2017 09/23/2018 In active Mobic 15 mg tablet RxNorm: 384522 1/2 TABLET(S) DAILY 09/26/2017 12/19/2017 Inactive lisinopril 20 mg tablet RxNorm: 273585 1/2 Tablet(s) daily 09/13/2017 01/12/2018 Inactive amlodipine 10 mg tablet RxNorm: 372606 TAKE 1 TABLET BY MOUTH EVERY DAY 09/09/2017 08/07/2018 In active Reglan 5 mg tablet RxNorm: 016811 1/2 Tablet(s) PO TID may increase up to a full pill three times daily as needed for poor GI motility 07/20/2017 09/17/2017 Inactive Protonix 40 mg table t,delayed release RxNorm: 067242 1 Tablet(s) PO daily 07/04/2017 01/29/2018 In active clopidogrel 75 mg ta blet RxNorm: 613357 TAKE 1 TABLET BY MOUT H EVERY DAY 06/20/2017 12/16/2017 In active cetirizine 10 mg tablet RxNorm: 8895091 TABLET(S) 1 TABLET(S) PO DAILY TO TAKE I NSTEAD OF THE CLARITIN 06/06/2017 03/12/2018 Inactive lisinopril 20 mg tablet RxNorm: 777229 TAKE 1 TABLET DAILY 05/30/2017 09/12/2017 Inactive Mobic 15 mg tablet RxNorm: 868111 1/2 TABLET(S) DAILY 03/21/2017 09/16/2017 Inactive donepezil 10 mg tablet RxNorm: 207770 1 Tablet(s) PO daily TAKE 1 TABLET BY MO UTH ONCE DAILY 02/28/2017 11/24/2017 Inactive Patient requests 90 days supply Requip 0.25 mg tablet RxNorm: 744241 1 TABLET(S) PO BID 01/24/2017 01/04/2018 Inactive Patient requests 90 days supply clopidogrel 75 mg ta blet RxNorm: 735738 TAKE 1 TABLET BY MOUT H EVERY DAY 12/23/2016 06/19/2017 In active lisinopril 20 mg tablet RxNorm: 866814 TAKE 1 TABLET DAILY 11/26/2016 05/24/2017 Inactive Kenalog 40 mg/mL hugo pension for injection RxNorm: 9650674 Milliliter(s) Inj 11/25/2016 11/25/2016 In active cefdinir 300 mg capsule RxNorm: 218961 1 Capsule(s) PO BID 11/23/2016 11/27/2016 Inactive cefdinir 300 mg capsule RxNorm: 486111 1 Capsule(s) PO BID 11/23/2016 11/22/2016 Inactive nystatin 100,000 uni t/mL oral suspension RxNorm: 775089 5 Milliliter(s) PO QI D 11/18/2016 11/27/2016 In active azithromycin 250 mg tablet RxNorm: 239894 1 Tablet(s) PO UD 2 p ills on day #1 then one pill daily x 4 more days 11/18/2016 11/22/2016 Inactive Mobic 15 mg tablet RxNorm: 234392 1/2 TABLET(S) DAILY 10/28/2016 03/20/2017 Inactive citalopram 10 mg tablet RxNorm: 841753 TAKE 1 TABLET BY MOUTH EVERY DAY 10/07/2016 03/05/2017 In active Patient requests 90 days supply mirtazapine 15 mg ta blet RxNorm: 714337 TAKE ONE TABLET BY MO U[facility] EVERY DAY 10/06/2016 09/28/2017 In active mirtazapine 15 mg ta blet RxNorm: 391791 TAKE ONE TABLET BY MO UTH EVERY DAY 10/05/2016 10/05/2016 In active Patient requests 90 days supply amlodipine 10 mg tablet RxNorm: 820196 TAKE 1 TABLET BY MOUTH EVERY DAY 09/14/2016 01/24/2017 In active clopidogrel 75 mg ta blet RxNorm: 151127 TAKE 1 TABLET BY MOUT H EVERY DAY 06/28/2016 12/22/2016 In active lisinopril 20 mg tablet RxNorm: 614406 TAKE 1 TABLET DAILY 05/31/2016 11/25/2016 Inactive donepezil 10 mg tablet RxNorm: 501366 TAKE 1 TABLET BY MOUTH ONCE DAILY 05/11/2016 11/06/2016 In active donepezil 10 mg tablet RxNorm: 682594 TAKE 1 TABLET BY MOUTH ONCE DAILY 04/26/2016 02/28/2017 In active Mobic 15 mg tablet RxNorm: 466186 1/2 Tablet(s) daily 04/19/2016 10/15/2016 Inactive citalopram 10 mg tablet RxNorm: 610505 TAKE 1 TABLET BY MOUTH EVERY DAY 04/06/2016 04/25/2016 In active cetirizine 10 mg tablet RxNorm: 8679558 Tablet(s) 1 TABLET(S) PO DAILY TO TAKE I NSTEAD OF THE CLARITIN 03/30/2016 02/22/2017 Inactive amlodipine 10 mg tablet RxNorm: 563460 TAKE 1 TABLET BY MOUTH EVERY DAY 03/08/2016 01/24/2017 In active amlodipine 10 mg tablet RxNorm: 432089 1 Tablet(s) PO daily TAKE 1 TABLET BY MO UTH ONCE DAILY 03/03/2016 03/07/2016 Inactive Requip 0.25 mg tablet RxNorm: 550198 1 Tablet(s) PO BID 03/03/2016 09/13/2016 Inactive Mobic 15 mg tablet RxNorm: 710324 1 Tablet(s) daily not refilled on a 02/23/2016 04/18/2016 In active cetirizine 10 mg tablet RxNorm: 0198633 1 TABLET(S) PO DAILY TO TAKE INSTEAD OF THE CLARITIN 02/19/2016 03/19/2016 Inactive lisinopril 20 mg tablet RxNorm: 461816 TAKE 1 TABLET DAILY 02/18/2016 05/17/2016 Inactive Namenda 10 mg tablet RxNorm: 001584 Tablet(s) TAKE 1 TABLET BY MOUTH TWICE D AILY. 02/17/2016 12/14/2017 Inactive lisinopril 20 mg tablet RxNorm: 483919 TAKE 1 TABLET DAILY 01/23/2016 01/24/2017 Inactive cetirizine 10 mg tablet RxNorm: 8789024 1 Tablet(s) PO daily to take instead of the claritin 01/21/2016 02/18/2016 Inactive amlodipine 10 mg tablet RxNorm: 461165 1 Tablet(s) PO daily TAKE 1 TABLET BY MO UTH ONCE DAILY 12/02/2015 03/02/2016 Inactive clopidogrel 75 mg ta blet RxNorm: 068615 TAKE 1 TABLET BY MOUT H EVERY DAY 11/25/2015 05/22/2016 In active Mobic 15 mg tablet RxNorm: 438790 TAKE(1/2) TABLET DAILY. 11/17/2015 02/22/2016 Inactive lisinopril 20 mg tablet RxNorm: 554023 TAKE 1 TABLET DAILY 11/17/2015 01/15/2016 Inactive Mobic 15 mg tablet RxNorm: 941807 1/2 Tablet(s) PO daily TAKE (1/2) TABLET DAILY. 11/12/2015 11/16/2015 Inactive citalopram 10 mg tablet RxNorm: 250275 TAKE 1 TABLET BY MOUTH EVERY DAY 10/27/2015 04/05/2016 In active Requip 0.25 mg tablet RxNorm: 873388 1 Tablet(s) PO BID 10/15/2015 02/11/2016 Inactive Requip 0.25 mg tablet RxNorm: 847080 1 Tablet(s) PO BID 10/15/2015 10/14/2015 Inactive mirtazapine 15 mg ta blet RxNorm: 334445 1 Tablet(s) PO daily 09/08/2015 10/01/2016 Inactive donepezil 10 mg tablet RxNorm: 156435 TAKE 1 TABLET DAILY 09/01/2015 04/25/2016 Inactive amlodipine 10 mg tablet RxNorm: 064703 1 Tablet(s) PO daily TAKE 1 TABLET BY MO [facility] ONCE DAILY 08/18/2015 12/01/2015 Inactive clopidogrel 75 mg ta blet RxNorm: 345894 1 Tablet(s) PO daily TAKE 1 TABLET DAILY 05/20/2015 11/24/2015 In active Mobic 15 mg tablet RxNorm: 924229 Tablet(s) TAKE (1/2) TABLET DAILY. 04/23/2015 10/19/2015 In active lisinopril 20 mg tablet RxNorm: 479972 TAKE 1 TABLET DAILY 04/22/2015 11/16/2015 Inactive Mobic 15 mg tablet RxNorm: 202719 TAKE (1/2) TABLET DAILY. 04/22/2015 04/22/2015 Inactive sulfamethoxazole 400 mg-trimethoprim 80 mg tablet RxNorm: 469438 1/2 Tablet(s) PO nancy y 03/11/2015 04/09/2015 Inactive Vesicare 5 mg tablet RxNorm: 594368 1 Tablet(s) PO 03/11/2015 05/09/2015 Inactive Protonix 40 mg table t,delayed release RxNorm: 001721 1 Tablet(s) PO BID 03/05/2015 09/30/2015 In active ok to change from [address] Archana rivera clopidogrel 75 mg ta blet RxNorm: 201570 1 Tablet(s) PO daily TAKE 1 TABLET DAILY 02/20/2015 05/19/2015 In active Namenda 10 mg tablet RxNorm: 014009 Tablet(s) TAKE 1 TABLET BY MOUTH TWICE D AILY. 01/22/2015 02/16/2016 Inactive amlodipine 10 mg tablet RxNorm: 782194 TAKE 1 TABLET BY MOUTH ONCE DAILY 01/14/2015 08/17/2015 In active donepezil 10 mg tablet RxNorm: 539566 TAKE 1 TABLET DAILY 01/06/2015 08/31/2015 Inactive Levsin 0.125 mg tablet RxNorm: 3334579 1 Tablet(s) PO QID as needed FOR ABD REJI N 11/05/2014 12/03/2014 In active Mobic 15 mg tablet RxNorm: 204436 1/2 Tablet(s) daily TAKE (1/2) TABLET DA MOIZ. 10/01/2014 04/21/2015 Inactive ciprofloxacin 500 mg tablet RxNorm: 557972 1 Tablet(s) PO BID 09/27/2014 10/01/2014 Inactive Flagyl 500 mg tablet RxNorm: 060091 1 Tablet(s) PO TID 09/27/2014 10/03/2014 Inactive take probiotic BID donepezil 10 mg tablet RxNorm: 266474 1/2 Tablet(s) PO BID 09/24/2014 01/05/2015 Inactive lisinopril 20 mg tablet RxNorm: 749213 TAKE 1 TABLET DAILY 09/05/2014 04/21/2015 Inactive amlodipine 10 mg tablet RxNorm: 243315 1 Tablet(s) PO daily 09/02/2014 12/30/2014 Inactive mirtazapine 15 mg ta blet RxNorm: 958947 1 Tablet(s) PO daily 08/28/2014 09/07/2015 Inactive donepezil 10 mg tablet RxNorm: 626412 1 Tablet(s) PO daily 08/28/2014 09/23/2014 Inactive citalopram 10 mg tablet RxNorm: 209156 1 Tablet(s) PO daily 08/28/2014 03/25/2015 Inactive citalopram 10 mg tablet RxNorm: 767493 1 Tablet(s) PO daily 08/07/2014 08/27/2014 Inactive citalopram 10 mg tablet RxNorm: 244259 1 Tablet(s) PO daily 08/07/2014 08/06/2014 Inactive Flagyl 500 mg tablet RxNorm: 071415 1 Tablet(s) PO TID 08/02/2014 08/01/2014 Inactive take probiotic BID Flagyl 500 mg tablet RxNorm: 439124 1 Tablet(s) PO TID 08/02/2014 08/08/2014 Inactive take probiotic BID tamsulosin ER 0.4 mg capsule,extended release 24 hr RxNorm: 295555 1 Capsule(s) PO QHS 06/06/2014 03/10/2015 Inactive TAKE AT BEDTIME escitalopram 5 mg ta blet RxNorm: 775713 1 Tablet(s) PO QPM 06/06/2014 08/06/2014 Inactive doxycycline hyclate 100 mg tablet RxNorm: 406249 1 Tablet(s) PO BID 05/31/2014 05/30/2014 Inactive doxycycline hyclate 100 mg tablet RxNorm: 963627 1 Tablet(s) PO BID 05/31/2014 06/06/2014 Inactive please deliver if not picked by 3pm Aricept 5 mg tablet RxNorm: 041653 1 Tablet(s) PO BID 05/29/2014 08/27/2014 Inactive losartan 50 mg tablet RxNorm: 718689 1/2 Tablet(s) PO daily 05/29/2014 12/28/2015 Inactive clopidogrel 75 mg ta blet RxNorm: 016601 1 Tablet(s) PO daily 05/27/2014 05/26/2014 Inactive Mobic 15 mg tablet RxNorm: 026294 TAKE (1/2) TABLET DAILY. 05/27/2014 09/30/2014 Inactive clopidogrel 75 mg ta blet RxNorm: 541079 TAKE 1 TABLET DAILY 05/27/2014 02/19/2015 Inactive Mobic 15 mg tablet RxNorm: 681368 1/2 Tablet(s) PO daily TAKE (1/2) TABLET DAILY. 05/27/2014 05/26/2014 Inactive prednisone 20 mg tablet RxNorm: 669246 1 Tablet(s) PO BID 05/21/2014 05/25/2014 Inactive albuterol sulfate 2. 5 mg/0.5 mL solution for nebulization RxNorm: 714780 1 inhale INH Q4H as needed 05/21/2014 09/01/2015 Inactive prednisone 20 mg tablet RxNorm: 188661 1 Tablet(s) PO BID 05/21/2014 05/20/2014 Inactive cefdinir 300 mg capsule RxNorm: 252918 1 Capsule(s) PO BID 05/20/2014 05/26/2014 Inactive Zithromax Z-Dequan 250 mg tablet RxNorm: 942052 1 Tablet(s) PO UD 05/20/2014 05/24/2014 Inactive zpack lorazepam 0.5 mg tablet RxNorm: 211200 1/2 to 1 Tablet(s) PO Q8 PRN as needed 04/30/2014 06/05/2014 In active Namenda 10 mg tablet RxNorm: 403084 TAKE 1 TABLET BY MOUTH TWICE DAILY. 04/15/2014 01/21/2015 In active Namenda 10 mg tablet RxNorm: 913150 1 Tablet(s) PO BID 04/15/2014 04/14/2014 Inactive losartan 50 mg tablet RxNorm: 794073 1 Tablet(s) PO daily 03/25/2014 05/28/2014 Inactive Protonix 40 mg table t,delayed release RxNorm: 434071 1 Tablet(s) PO QPM 03/21/2014 06/18/2014 In active ok to change from [address] Archana rivera fluticasone 50 mcg/a ctuation nasal spray,suspension RxNorm: 260725 1 [facility] NASAL BID 03/04/2014 09/29/2014 Inactive Protonix 20 mg table t,delayed release RxNorm: 662592 1 Tablet(s) PO QPM 02/08/2014 03/20/2014 In active fluticasone 50 mcg/a ctuation nasal spray,suspension RxNorm: 986676 1 [facility] NASAL BID 01/30/2014 03/03/2014 Inactive fluticasone 50 mcg/a ctuation nasal spray,suspension RxNorm: 595683 1 [facility] NASAL BID 12/24/2013 01/29/2014 Inactive fluticasone 50 mcg/a ctuation nasal spray,suspension RxNorm: 932466 1 [facility] NASAL BID 11/20/2013 12/23/2013 Inactive doxycycline hyclate 100 mg capsule RxNorm: 0711957 1 Capsule(s) PO BID 10/08/2013 10/17/2013 In active doxycycline hyclate 100 mg capsule RxNorm: 7507719 capsule oral 10/08/2013 10/29/2013 Inactive fluticasone 50 mcg/a ctuation nasal spray,suspension RxNorm: 998436 spray,suspension nasl 10/08/2013 11/19/2013 Inactive fluticasone 50 mcg/a ctuation nasal spray,suspension RxNorm: 087884 1 [facility] NASAL BID Nasal spray- use twice daily, one spray per nostril twice daily, after 30 minutes, rinse out nose with saline spray. 10/08/2013 10/29/2013 Inactive mirtazapine 7.5 mg t ablet RxNorm: 496252 1/2 Tablet(s) PO daily 08/30/2013 08/27/2014 Inactive lorazepam 0.5 mg tablet RxNorm: 713063 1/2 Tablet(s) PO Q8 PRN 08/21/2013 04/29/2014 Inactive Aricept 5 mg tablet RxNorm: 910091 Tablet(s) PO TAKE 1 TABLET DAILY 08/21/2013 05/28/2014 In active Plavix 75 mg tablet RxNorm: 636270 Tablet(s) PO TAKE 1 TABLET DAILY 05/24/2013 12/04/2014 In active clopidogrel 75 mg ta blet RxNorm: 759248 tablet oral 05/24/2013 05/26/2014 Inactive Plavix 75 mg tablet RxNorm: 549619 1 Tablet(s) PO daily 05/23/2013 05/23/2013 Inactive meloxicam 15 mg tablet RxNorm: 095426 tablet oral 04/26/2013 03/25/2014 Inactive Mobic 15 mg tablet RxNorm: 262226 Tablet(s) PO TAKE (1/2) TABLET DAILY. 04/26/2013 05/26/2014 In active Mobic 15 mg tablet RxNorm: 196696 1/2 Tablet(s) PO daily 04/25/2013 04/25/2013 Inactive lisinopril 20 mg tablet RxNorm: 842031 1 Tablet(s) PO 04/04/2013 03/24/2014 Inactive finasteride 5 mg tablet RxNorm: 984793 tablet oral 03/22/2013 09/01/2015 Inactive lisinopril 10 mg tablet RxNorm: 293097 1 Tablet(s) PO daily 02/14/2013 04/03/2013 Inactive donepezil 5 mg tablet RxNorm: 763598 tablet oral 02/07/2013 12/24/2013 Inactive Influenza Virus Vacc ine 0.5 mL RxNorm: IM 02/06/2013 02/06/2013 Inactive Aricept 5 mg tablet RxNorm: 274660 1 Tablet(s) PO daily 02/06/2013 08/04/2013 Inactive tamsulosin ER 0.4 mg capsule,extended release 24 hr RxNorm: 698863 capsule,extended release 24hr oral 12/21/2012 06/05/2014 Inactive Plavix 75 mg tablet RxNorm: 116821 1 Tablet(s) PO daily 12/05/2012 05/03/2013 Inactive lorazepam 0.5 mg tablet RxNorm: 262481 1/2 Tablet(s) PO Q8 PRN 11/14/2012 08/20/2013 Inactive lisinopril 10 mg tablet RxNorm: 829577 1 Tablet(s) PO daily 08/08/2012 02/03/2013 Inactive Aricept 5 mg tablet RxNorm: 127722 1 Tablet(s) PO daily 08/08/2012 02/03/2013 Inactive Plavix 75 mg tablet RxNorm: 171730 1 Tablet(s) PO daily 07/04/2012 11/30/2012 Inactive Mobic 15 mg tablet RxNorm: 855083 1/2 Tablet(s) PO daily 03/20/2012 04/13/2013 Inactive Namenda 10 mg tablet RxNorm: 893415 1 Tablet(s) PO BID 02/22/2012 04/11/2014 Inactive lorazepam 0.5 mg tablet RxNorm: 269083 1/2 Tablet(s) PO Q8 PRN 02/02/2012 11/13/2012 Inactive lisinopril 10 mg tablet RxNorm: 618673 1 Tablet(s) PO daily 01/24/2012 07/21/2012 Inactive lisinopril 10 mg tablet RxNorm: 039155 1/2 Tablet(s) PO daily 12/20/2011 01/23/2012 Inactive Aricept 5 mg tablet RxNorm: 094862 1 Tablet(s) PO daily 07/14/2011 08/06/2012 Inactive Mobic 15 mg tablet RxNorm: 989733 1 Tablet(s) PO daily 07/14/2011 03/19/2012 Inactive Bentyl 10 mg Cap RxNorm: 214471 1 Capsule(s) PO daily one pill daily and every 6 hours if needed for bowel spasms. 06/23/2011 03/20/2012 Inactive amlodipine 5 mg Tab RxNorm: 509168 2 Tablet(s) PO daily 03/08/2011 12/08/2011 Inactive ZOSTAVAX 19,400 unit Sub-Q Soln RxNorm: 3600985 SQ 02/2502/25/2011 Inactive Pneumovax 23 25 mcg/ 0.5 mL Injection RxNorm: 213728 Milliliter(s) Inj 02/16/2011 02/16/2011 In active Influenza Virus Vacc ine 0.5 mL RxNorm: IM 02/09/2011 02/09/2011 Inactive Namenda 10 mg tablet RxNorm: 438126 1 Tablet(s) PO BID 02/01/2011 02/21/2012 Inactive dicyclomine 10 mg ca psule RxNorm: 897828 capsule oral 01/20/2011 10/29/2013 Inactive Namenda 5 mg tablet RxNorm: 094279 tablet oral 01/20/2011 12/24/2013 Inactive dicyclomine 20 mg ta blet RxNorm: 134618 tablet oral 01/15/2011 10/29/2013 Inactive Flagyl 500 mg Tab RxNorm: 670235 1 Tablet(s) PO TID 01/07/2011 01/06/2011 Inactive Cipro 500 mg Tab RxNorm: 182611 1 Tablet(s) PO BID 01/07/2011 06/23/2011 Inactive Cipro 500 mg Tab RxNorm: 767634 1 Tablet(s) PO BID 01/07/2011 01/06/2011 Inactive Flagyl 500 mg Tab RxNorm: 454163 1 Tablet(s) PO TID 01/07/2011 06/23/2011 Inactive metronidazole 500 mg tablet RxNorm: 260622 tablet oral 01/07/2011 12/24/2013 Inactive sulfamethoxazole 400 mg-trimethoprim 80 mg tablet RxNorm: 640033 tablet oral 12/24/2010 03/10/2015 In active mirtazapine 15 mg ta blet RxNorm: 779958 tablet oral 11/14/2010 12/24/2013 Inactive lisinopril 10 mg tablet RxNorm: 074540 tablet oral 11/14/2010 12/24/2013 Inactive doxycycline hyclate 100 mg tablet RxNorm: 168639 tablet oral 11/04/2010 12/24/2013 Inactive diphenoxylate-atropi ne 2.5 mg-0.025 mg tablet RxNorm: 8572812 tablet oral 11/03/2010 10/29/2013 In active ciprofloxacin 500 mg tablet RxNorm: 349239 tablet oral 11/01/2010 10/29/2013 Inactive Miralax 17 gram/dose oral powder RxNorm: 796127 17 Gram(s) PO daily No Start Date Active alprazolam 0.25 mg t ablet RxNorm: 467235 1 Tablet(s) PO BID PRN No Start Date Active simvastatin 20 mg ta blet RxNorm: 597762 1 Tablet(s) PO daily No Start Date Active Vesicare 5 mg tablet RxNorm: 096808 1 Tablet(s) PO daily No Start Date Active bicalutamide 50 mg t ablet RxNorm: 009060 1 Tablet(s) PO daily No Start Date Active sulfamethoxazole 500 mg Tab RxNorm: 198645 1/2 Tablet(s) PO daily No Start Date 12/24/2013 Inactive Plavix 75 mg Tab RxNorm: 694106 1 Tablet(s) PO daily No Start Date 01/26/2011 Inactive aspirin 81 mg Cap, D elayed Release RxNorm: 994126 1 Capsule(s) PO daily No Start Date 01/04/2018 Inactive Bentyl 10 mg capsule RxNorm: 809800 1 Capsule(s) PO QID as needed per dr. tylor pereira No Start Date 01/04/2018 Inactive famotidine 20 mg tablet RxNorm: 604108 1 Tablet(s) PO BID prescribed in ER No Start Date 10/13/2017 Inactive hydrocodone 5 mg-alexey taminophen 325 mg tablet RxNorm: 890264 1 Tablet(s) PO Q6 as needed No Start Date 06/05/2014 Inactive Proscar 5 mg Tab RxNorm: 360550 1 Tablet(s) PO daily No Start Date 09/01/2015 Inactive Plavix 75 mg tablet RxNorm: 288355 1 Tablet(s) PO daily No Start Date 07/03/2012 Inactive albuterol sulfate 2. 5 mg/0.5 mL solution for nebulization RxNorm: 971443 1 inhale INH Q4H as needed No Start Date 05/20/2014 Inactive metoclopramide 5 mg tablet RxNorm: 168446 1 Tablet(s) PO AC & H S prescribed in ER No Start Date 01/04/2018 Inactive amlodipine 5 mg Tab RxNorm: 091953 1 Tablet(s) PO daily No Start Date 03/07/2011 Inactive ranitidine 150 mg ta blet RxNorm: 339100 1 Tablet(s) PO daily No Start Date 07/24/2018 Inactive Namenda 5 mg Tab RxNorm: 354011 1 Tablet(s) PO daily No Start Date 06/23/2011 Inactive Zyrtec 10 mg tablet RxNorm: 9868343 1 Tablet(s) PO daily No Start Date 01/04/2018 Inactive Allergy Relief (ceti rizine) oral RxNorm: 109833 oral No S tart Date 12/19/2016 Inactive fluocinonide 0.05 % Ointment RxNorm: 550892 1 TOP BID PRN No Start Date 12/24/2013 Inactive amlodipine 5 mg tablet RxNorm: 945015 1 Tablet(s) PO daily No Start Date 09/01/2014 Inactive lisinopril Oral RxNorm: Oral No Start Date 12/08/2011 Inactive simvastatin 20 mg Tab RxNorm: 631529 1 Tablet(s) PO daily No Start Date 06/06/2014 Inactive Bentyl 20 mg Tab RxNorm: 320178 1 Tablet(s) PO Q6 PRN No Start Date 06/23/[address] Quintero Bentyl 10 mg Cap RxNorm: 640118 1 Capsule(s) PO BID No Start Date 06/22/2011 Inactive fluticasone 50 mcg/a ctuation nasal spray,suspension RxNorm: 1541713 1 [facility] NASAL BID No Start Date 02/07/2018 Inactive Plavix 75 mg Tab RxNorm: 656694 1 Tablet(s) PO every other day No Start Date 08/24/2011 Inactive lorazepam 0.5 mg tablet RxNorm: 712900 1/2 Tablet(s) PO Q8 PRN No Start Date 02/01/2012 Inactive lisinopril 10 mg tablet RxNorm: 554916 1 Tablet(s) PO daily No Start Date 12/19/2011 Inactive Trulance 3 mg tablet RxNorm: 9145465 1 Tablet(s) PO QAM No Start Date 01/18/2018 Inactive Flomax 0.4 mg 24 hr Cap RxNorm: 526307 1 Capsule(s) PO daily No Start Date 05/28/2014 Inactive Phenergan 6.25 mg/5 mL syrup RxNorm: 481477 5-10 Milliliter(s) PO QID as needed No Start Date 08/16/2018 Inactive Aricept 5 mg Tab RxNorm: 615932 1 Tablet(s) PO daily No Start Date 07/13/2011 Inactive Vitamin D 1,000 unit Tab RxNorm: 722327 1 Tablet(s) PO daily No Start Date 01/04/2018 Inactive Levsin 0.125 mg tablet RxNorm: 0991682 1 Tablet(s) PO QID as needed FOR ABD REJI N No Start Date 11/04/2014 Inactive mirtazapine 7.5 mg t ablet RxNorm: 087258 1/2 Tablet(s) PO daily No Start Date 08/29/2013 Inactive Senior Vitamin Tab RxNorm: 1 Tablet(s) PO daily No Start Date 01/04/2018 Inactive Mobic 15 mg Tab RxNorm: 951886 1 Tablet(s) PO daily No Start Date 07/13/2011 Inactive Medication Administered Medication Codes Instruc tions Start Date Status Kenalog 40 mg/mL suspension for injection RxNorm: 7668367 Milliliter 11/25/2016 No longer Active Influenza Virus Vaccine 0.5 mL RxNorm: 02/06/2013 No longer Active ZOSTAVAX 19,400 unit Sub-Q Soln RxNo rm: [id number] 02/25/2011 No longer A ctive Pneumovax 23 25 mcg/0.5 mL Injection RxNorm: 060019 Milliliter 02/16/2011 No longer Active Influenza Virus [...] Ord15 CALCIUM 10.1 mg/dL 06/08/2018 Comp Metabolic Uzf505 NA 143 mEq/L 04/10/2018 Comp Metabolic Hna041 K 3.8 mEq/L 04/10/2018 Comp Metabolic Lxb305 CL 105 mEq/L 04/10/2018 Comp Metabolic Klr705 CO2 30.0 mEq/L 04/10/2018 Comp Metabolic Udz001 AN ION GAP 12 04/10/2018 Comp Metabolic Clq087 GL UCOSE 95 mg/dL 04/10/2018 Comp Metabolic Hvp960 Cr eat 1.2 mg/dL 04/10/2018 Comp Metabolic Pfw055 eG FR 60 ml/min/1.73m2 04/10 Comp Metabolic Ivf527 BUN 22 mg/dL 04/10/2018 Comp Metabolic Hhk708 B/ C Ratio 18.2 Ratio 04/10/2018 Comp Metabolic Cxo142 CA LCIUM 10.3 mg/dL 04/10/2018 Comp Metabolic Ggr132 AL K PHOS 113 U/L 04/10/2018 Comp Metabolic Xqg395 T(SGOT) 30 U/L 04/10/2018 Comp Metabolic Lie497 AL T(SGPT) 19 U/L 04/10/2018 Comp Metabolic Xnh317 BI LI T 0.4 mg/dL 04/10/2018 Comp Metabolic Jsi644 AL BUMIN 4.2 g/dL 04/10/2018 Comp Metabolic Kff206 TP RO 6.5 g/dL 04/10/2018 Comp Metabolic Hey960 GL OB 2.3 g/dL 04/10/2018 Comp Metabolic Gfd858 A/ G Ratio 1.8 Ratio 04/10/2018 Comp Metabolic Okg225 Os mo 288 mOsmo 04/10/2018 Lipid Ord30 CHOL 133 mg/dL 04/10/2018 Lipid Ord30 HDL 49.0 mg/dl 04/10/2018 Lipid Ord30 TRIG 68 mg/dL 04/10/2018 Lipid Ord30 LDL 70 mg/dL 04/10/2018 Lipid Ord30 C/HDL 2.7 Ratio 04/10/2018 C RAP A SC [id number] Strep A Negative 01/13/2018 Comp Metabolic Ips166 NA 134 mEq/L 10/07/2017 Comp Metabolic Rel577 K 4.5 mEq/L 10/07/2017 Comp Metabolic Ben238 CL 99 mEq/L 10/07/2017 Comp Metabolic Yic275 CO2 31.0 mEq/L 10/07/2017 Comp Metabolic Rtb131 AN ION GAP 9 10/07/2017 Comp Metabolic Bil286 GL UCOSE 82 mg/dL 10/07/2017 Comp Metabolic Feh301 Cr eat 1.0 mg/dL 10/07/2017 Comp Metabolic Ntf246 eG FR 77 ml/min/1.73m2 10/07 Comp Metabolic Scv429 BUN 16 mg/dL 10/07/2017 Comp Metabolic Fjj512 B/ C Ratio 16.3 Ratio 10/07/2017 Comp Metabolic Bad233 CA LCIUM 9.6 mg/dL 10/07/2017 Comp Metabolic Swv607 AL K PHOS 72 U/L 10/07/2017 Comp Metabolic Hdl492 T(SGOT) 21 U/L 10/07/2017 Comp Metabolic Jzl444 AL T(SGPT) 14 U/L 10/07/2017 Comp Metabolic Emx514 BI LI T 0.4 mg/dL 10/07/2017 Comp Metabolic Ehd041 AL BUMIN 4.0 g/dL 10/07/2017 Comp Metabolic Som586 TP RO 5.7 g/dL 10/07/2017 Comp Metabolic Enj978 GL OB 1.7 g/dL 10/07/2017 Comp Metabolic Nvd225 A/ G Ratio 2.4 Ratio 10/07/2017 Comp Metabolic Pwv737 Os mo 269 mOsmo 10/07/2017 Lipid Ord30 CHOL 135 mg/dL 10/07/2017 Lipid Ord30 HDL 69.0 mg/dl 10/07/2017 Lipid Ord30 TRIG 52 mg/dL 10/07/2017 Lipid Ord30 LDL 56 mg/dL 10/07/2017 Lipid Ord30 C/HDL 2.0 Ratio 10/07/2017 %Hba1C Pxf113 % HbA1c 03299-8 5.5 % 09/12/2017 %Hba1C Okp404 Gluc Ave 111 mg/dL 09/12/2017 B12 Qgh636 B12 816.00 pg/ml 09/10/2017 Test(s) Not Perfromed Test(s) Not Performed Test(s) Not Performed. See B elow: 09/09/2017 Test(s) Not Perfromed TEST NAME VIT D 09/09/2017 Test(s) Not Perfromed Rejection Reason NO PAYABLE DX 018 Test(s) Not Perfromed COMMENT PATIENT SAID HE WAS TAKING SUPPLEMENT 09/09/2017 Test(s) Not Perfromed [employer] [place] 018 Lipid Ord30 CHOL 134 mg/dL 04/11/2017 Lipid Ord30 HDL 63.0 mg/dl 04/11/2017 Lipid Ord30 TRIG 45 mg/dL 04/11/2017 Lipid Ord30 LDL 62 mg/dL 04/11/2017 Lipid Ord30 C/HDL 2.1 Ratio 04/11/2017 Tsh Ord6 hTSH II 2.07 uIU/mL 04/11/2017 Body Fluid Crystals Source RIGHT ELBOW 6 Body Fluid Crystals CRYSTALS, BODY FLUID 02/18/2016 Uric Acid Body Fluid 300428 URIC ACID-FLUID 4.3 mg/dL 02/18/2016 Metabolic Ord15 [...] Ord15 CALCIUM 9.1 mg/dL 02/05/2016 Comp Metabolic Ysg938 NA 129 mEq/L 10/08/2015 Comp Metabolic Cma994 K 4.7 mEq/L 10/08/2015 Comp Metabolic Lnv378 CL 98 mEq/L 10/08/2015 Comp Metabolic Zdd709 CO2 28.0 mEq/L 10/08/2015 Comp Metabolic Efr404 AN ION GAP 8 10/08/2015 Comp Metabolic Mdg842 GL UCOSE 84 mg/dL 10/08/2015 Comp Metabolic Dme340 Cr eat 1.3 mg/dL 10/08/2015 Comp Metabolic Aum153 eG FR 56 ml/min/1.73m2 10/07 Comp Metabolic Hsc835 BUN 23 mg/dL 10/08/2015 Comp Metabolic Wcc599 B/ C Ratio 17.8 Ratio 10/08/2015 Comp Metabolic Puj002 CA LCIUM 9.3 mg/dL 10/08/2015 Comp Metabolic Qxy058 AL K PHOS 68 U/L 10/08/2015 Comp Metabolic Hca368 T(SGOT) 24 U/L 10/08/2015 Comp Metabolic Ofm452 AL T(SGPT) 15 U/L 10/08/2015 Comp Metabolic Qqe935 BI LI T 0.5 mg/dL 10/08/2015 Comp Metabolic Hri933 AL BUMIN 4.0 g/dL 10/08/2015 Comp Metabolic Izi371 TP RO 5.9 g/dL 10/08/2015 Comp Metabolic Zop304 GL OB 1.9 g/dL 10/08/2015 Comp Metabolic Pfu908 A/ G Ratio 2.1 Ratio 10/08/2015 Comp Metabolic Kdt950 Os mo 262 mOsmo 10/08/2015 Lipid Ord30 [...] Ord30 C/HDL 2.3 Ratio 05/07/2015 Comp Metabolic Djj892 NA 132 mEq/L 05/07/2015 Comp Metabolic Oba258 K 4.4 mEq/L 05/07/2015 Comp Metabolic Ayh472 CL 97 mEq/L 05/07/2015 Comp Metabolic Qgx946 CO2 30.0 mEq/L 05/07/2015 Comp Metabolic Ftm703 AN ION GAP 9 05/07/2015 Comp Metabolic Ygx515 GL UCOSE 78 mg/dL 05/07/2015 Comp Metabolic Zhs315 Cr eat 1.2 mg/dL 05/07/2015 Comp Metabolic Zqx789 eG FR 60 ml/min/1.73m2 05/07 Comp Metabolic Dfp221 BUN 25 mg/dL 05/07/2015 Comp Metabolic Szr093 B/ C Ratio 20.3 Ratio 05/07/2015 Comp Metabolic Mij496 CA LCIUM 9.6 mg/dL 05/07/2015 Comp Metabolic Own613 AL K PHOS 70 U/L 05/07/2015 Comp Metabolic Yfl103 T(SGOT) 27 U/L 05/07/2015 Comp Metabolic Vdb791 AL T(SGPT) 20 U/L 05/07/2015 Comp Metabolic Ynu441 BI LI T 0.4 mg/dL 05/07/2015 Comp Metabolic Ngo143 AL BUMIN 4.0 g/dL 05/07/2015 Comp Metabolic Ypk851 TP RO 5.8 g/dL 05/07/2015 Comp Metabolic Jwo820 GL OB 1.8 g/dL 05/07/2015 Comp Metabolic Aio857 A/ G Ratio 2.3 Ratio 05/07/2015 Comp Metabolic Jbw184 Os mo 268 mOsmo 05/07/2015 Cbc With [...] hTSH II 4.07 uIU/mL 05/07/2015 Comp Metabolic Oze288 NA 134 mEq/L 12/10/2014 Comp Metabolic Vhl549 K 4.8 mEq/L 12/10/2014 Comp Metabolic Mhe561 CL 101 mEq/L 12/10/2014 Comp Metabolic Omh350 CO2 30.0 mEq/L 12/10/2014 Comp Metabolic Oap311 AN ION GAP 8 12/10/2014 Comp Metabolic Jug204 GL UCOSE 85 mg/dL 12/10/2014 Comp Metabolic Twx331 Cr eat 1.2 mg/dL 12/10/2014 Comp Metabolic Cce810 eG FR 65 ml/min/1.73m2 12/10 Comp Metabolic Fyf488 BUN 25 mg/dL 12/10/2014 Comp Metabolic Yle947 B/ C Ratio 21.7 Ratio 12/10/2014 Comp Metabolic Fzx623 CA LCIUM 9.5 mg/dL 12/10/2014 Comp Metabolic Wpb225 AL K PHOS 76 U/L 12/10/2014 Comp Metabolic Rqy254 T(SGOT) 27 U/L 12/10/2014 Comp Metabolic Tmk746 AL T(SGPT) 18 U/L 12/10/2014 Comp Metabolic Vet020 BI LI T 0.5 mg/dL 12/10/2014 Comp Metabolic Mbx366 AL BUMIN 4.1 g/dL 12/10/2014 Comp Metabolic Xuc445 TP RO 5.7 g/dL 12/10/2014 Comp Metabolic Nrq209 GL OB 1.6 g/dL 12/10/2014 Comp Metabolic Qzn933 A/ G Ratio 2.6 Ratio 12/10/2014 Comp Metabolic Zdv413 Os mo 272 mOsmo 12/10/2014 B12 Yae327 B12 1011.00 pg/ml 12/10/2014 Lipid Ord30 CHOL [...] Differential Ord2 RDW 14.3 % 12/10/2014 CBC 8519216 WBC 4.1 10e9/L 02/19/2013 CBC 1375348 RBC 4.39 10e12/L 02/19/2013 CBC 8872657 HGB 14.1 g/dL 02/19/2013 CBC 9666264 HCT DET 41.0 % 02/19/2013 CBC 7990191 MCV 93.4 fL 02/19/2013 CBC 3685889 MCH 32.1 pg 02/19/2013 CBC 2796458 MCHC 34.4 g/dL 02/19/2013 CBC 1287205 PLT 151 10e9/L 02/19/2013 CBC 7054279 MPV 11.8 fL 02/19/2013 CBC 1796358 YOVANNY % 63.2 % 02/19/2013 CBC 9306288 LY % 22.9 % 02/19/2013 CBC 0810269 MON % 11.5 % 02/19/2013 CBC 6750456 EOS % 2.2 % 02/19/2013 CBC 4230323 BASO % 0.2 % 02/19/2013 CBC 7232222 RDW 13.8 % 02/19/2013 CBC 9463051 ABS YOVANNY 2.59 10e9/L 02/19/2013 CBC 2070920 ABS LYMPH 0.94 10e9/L 02/19/2013 CBC 1453169 ABS MONO 0.47 10e9/L 02/19/2013 CBC 1108995 ABS EOS 0.09 10e9/L 02/19/2013 CBC 0380207 ABS BASO 0.01 10e9/L 02/19/2013 CBC 5060313 RDW-SD 46.0 fL 02/19/2013 TSH 2326369 TSH 2.094 uIU/ML 02/19/2013 FREE T4 8253438 FREE T4 1.18 NG/DL 02/19/2013 GFR CALC 5642920 GFR AA >60 ML/MIN 02/19/2013 GFR CALC 9138652 GFR NON -AA >60 ML/MIN 02/19/2013 CHEM 14 3905379 AST 30 U/L 02/19/2013 CHEM 14 1628100 ALT 19 IU/L 02/19/2013 CHEM 14 8218887 BUN 21 MG/DL 02/19/2013 CHEM 14 2553613 ALBUMIN 4.4 GM/DL 02/19/2013 CHEM 14 8877940 CHLORIDE 94 MMOL/L 02/19/2013 CHEM 14 9740409 BILI TOT 0.5 MG/DL 02/19/2013 CHEM 14 4273693 ALK PHOS 75 U/L 02/19/2013 CHEM 14 3534171 SODIUM 133 MMOL/L 02/19/2013 CHEM 14 9380641 CREATINI NE 1.07 MG/DL 02/19/2013 CHEM 14 0476184 CALCIUM 9.6 MG/DL 02/19/2013 CHEM 14 2055577 POTASSIUM 4.6 MMOL/L 02/19/2013 CHEM 14 4407473 PROT TOT 6.1 GM/DL 02/19/2013 CHEM 14 8539876 GLUCOSE 94 MG/DL 02/19/2013 CHEM 14 3632103 BICARB 31 MMOL/L 02/19/2013 CHEM 14 2914607 ANION GAP 8 MEQ/L 02/19/2013 UA 01623 Specific [place] 1.015 DateTime(Free Text in Aprima ) UA 45979 PH 6 DateTime(Free Text in Aprima ) UA 39367 GLUCOSE neg DateTime(Free Text in Aprima ) UA 14858 Protein neg DateTime(Free Text in Aprima ) UA 53393 Blood neg DateTime(Free Text in Aprima ) UA 76552 Bilirubin neg DateTime(Free Text in Aprima ) UA 60218 Ketones neg DateTime(Free Text in Aprima ) UA 97519 Urobilinogen neg DateTime(Free Text in Aprima ) UA 21285 Nitrite neg DateTime(Free Text in ) UA 02329 Leukocytes neg DateTime(Free Text in ) Review [...] No mental status change 11/14/2017 Psychiatric anxiety 0701/2018 Psychiatric disturbances of memory 11/14/2017 Constitutional recent [...] distress 05/18/2018 None Full Exam - General 1995 Constitutional general appearance Overall: well nourished 05/18/2018 None Full Exam - General 1995 Eyes conjunctiva/eyelids Overall: conjunctiva clear 05/18/2018 None Full Exam - General 1995 Eyes conjunctiva/eyelids Overall: cornea clear 05/18/2018 None Full Exam - General 1994 Eyes conjunctiva/eyelids Overall: eyelids normal 05/18/2018 None Full Exam - General 1995 Ears/Nose/Throat lips/teeth/gingiva Overall: benign lips 05/18/2018 None Full Exam - General 1995 Ears/Nose/Throat oral cavity/pharynx/larynx Oral mucosa: dry 05/18/2018 [...] clear 02/08/2018 None Full Exam - General 1995 Eyes conjunctiva/eyelids Overall: cornea clear 02/08/2018 None [...] clear 07/01/2017 None Full Exam - General 1995 Ears/Nose/Throat [...] posture 06/18/2013 None Full Exam - General 1995 [...] retractions 02/19/2013 None Full Exam - General 1995 Respiratory respiratory effort/rhythm Overall: normal rate 02/19/2013 None Full Exam - General 1995 Cardiovascular [...] hygiene 01/26/2011 None Full Exam - General 1995 Constitutional general appearance Hygiene/Attention to Grooming: normal grooming 01/26/2011 None Full Exam - General 1995 Respiratory auscultation Overall: breath sounds clear bilaterally [...] appearance 01/15/2011 None Full Exam - General 1995 Neck inspection of neck Overall: no masses [...] VACC PRSV FREE I NC ANTIG CPT-4: 80272 02/08/2018 URINALYSIS NONAUTO W /O SCOPE CPT-4: 81409 09/26/2017 ADMIN INFLUENZA VIRU S VAC CPT-4: G0008 01/25/2017 FLU VACC PRSV FREE I NC ANTIG CPT-4: 35266 01/25/2017 THER/PROPH/DIAG INJ SC/IM CPT-4: 70882 11/25/2016 TRIAMCINOLONE ACET I [place] NOS CPT-4: J3301 11/25/2016 DRAIN/INJECT JOINT/B URSA CPT-4: 27375 02/17/2016 IMMUNIZATION ADMIN CPT- 4: 97534 05/06/2015 PNEUMOCOCCAL VACC 13 TIFFANIE IM Formatting Model/CDA Sections, Assigned to/Celia Minaya SNOMED CT: [id number] CPT-4: 08756Wpcgnwe 05/06/2015 ADMIN INFLUENZA VIRU S VAC CPT-4: G0008 02/19/2015 FLU VACC 4 TIFFANIE 3 YRS PLUS IM Formatting Model/CDA Sections, Assigned to SNOMED CT: [id number] CPT-4: 69415Cnrqvti 02/19/2015 URINALYSIS NONAUTO W /O SCOPE CPT-4: 18575 05/23/2014 ADMIN INFLUENZA VIRU S VAC CPT-4: G0008 03/26/2014 FLU VAC NO PRSV 4 VA L 3 YRS+ Assigned to/Celia Minaya CPT-4: 62579Ozncrra 03/26/2014 PRESCRIP TRANSMIT A ERX SY CPT-4: G8553 04/04/2013 ROUTINE VENIPUNCTURE CPT-4: 91195 02/19/2013 ADMIN INFLUENZA VIRU S VAC CPT-4: G0008 02/06/2013 FLULAVAL VACC, 3 YRS & >, IM CPT-4: Q2036 02/06/2013 20709 EST. PATIENT, LEVEL IV CPT-4: 77082 06/19/2012 PRESCRIP TRANSMIT A ERX SY CPT-4: G8553 06/19/2012 PRESCRIP TRANSMIT A ERX SY CPT-4: G8553 03/20/2012 PRESCRIP TRANSMIT A ERX SY CPT-4: G8553 06/23/2011 IMMUNIZATION ADMIN CPT- 4: 34187 02/25/2011 ZOSTER VACC SC (No lloyd stephens, patient supplied vaccine) CPT-4: 71244DR 02/25/2011 ADMIN PNEUMOCOCCAL V ACCINE SNOMED CT: 15715172 CPT-4: G0009 02/16/2011 Pneumococcal Polysac charide Vaccine, 23-Valent, Ad CPT-4: 57403 02/16/2011 ADMIN INFLUENZA VIRU S VAC CPT-4: G0008 02/09/2011 FLULAVAL VACC, 3 YRS & >, IM CPT-4: Q2036 02/09/2011 PRESCRIP TRANSMIT A ERX SY CPT-4: G8553 02/01/2011 URINALYSIS NONAUTO W /O SCOPE CPT-4: 87543 01/27/2011 Vital Signs Date Vital 08/17/2018 Blood Pressure 1: 138/68 Code: 8480-6 BMI: 20.4 Code: 28265-2 Heart Rate 1: 76 bpm Height: 5'9" Weight: 138 lbs 05/18/2018 Blood Pressure 1: 142/64 Code: 8480-6 BMI: 19.9 Code: 50026-8 Heart Rate 1: 52 bpm Height: 5'9" SpO2: 98% Weight: 135 lbs 04/13/2018 Blood Pressure 1: 128/58 Code: 8480-6 BMI: 21.0 Code: 67348-4 Heart Rate 1: 83 bpm Height: 5'9" SpO2: 94% Weight: 142 lbs 02/08/2018 Blood Pressure 1: 136/76 Code: 8480-6 BMI: 19.9 Code: 19895-8 Heart Rate 1: 78 bpm Height: 5'9" SpO2: 99% Weight: 135 lbs 01/19/2018 Blood Pressure 1: 114/78 Code: 8480-6 BMI: 19.9 Code: 40973-2 Heart Rate 1: 80 bpm Height: 5'9" SpO2: 98% Weight: 135 lbs 01/12/2018 Blood Pressure 1: 130/78 Code: 8480-6 BMI: 19.8 Code: 00512-6 Heart Rate 1: 85 bpm Height: 5'9" SpO2: 97% Weight: 134 lbs 01/05/2018 Blood Pressure 1: 122/70 Code: 8480-6 BMI: 19.6 Code: 54787-9 Heart Rate 1: 87 bpm Height: 5'9" SpO2: 96% Weight: 133 lbs 11/14/2017 Blood Pressure 1: 130/70 Code: 8480-6 BMI: 19.5 Code: 52153-8 Heart Rate 1: 75 bpm Height: 5'9" SpO2: 98% Weight: 132 lbs 2017 Blood Pressure 1: 116/70 Code: 8480-6 BMI: 19.5 Code: 06848-5 Heart Rate 1: 55 bpm Height: 5'9" SpO2: 95% Weight: 132 lbs 10/13/2017 Blood Pressure 1: 130/70 Code: 8480-6 BMI: 19.3 Code: 88327-3 Heart Rate 1: 67 bpm Height: 5'9" SpO2: 98% Weight: 131 lbs 09/26/2017 Blood Pressure 1: 126/70 Code: 8480-6 BMI: 19.1 Code: 87069-6 Heart Rate 1: 66 bpm Height: 5'9" SpO2: 100% Weight: 129 lbs 8 oz 09/12/2017 Blood Pressure 1: 120/70 Code: 8480-6 BMI: 19.5 Code: 91453-7 Heart Rate 1: 83 bpm Height: 5'9" SpO2: 99% Weight: 132 lbs 09/09/2017 Blood Pressure 1: 126/70 Code: 8480-6 BMI: 19.3 Code: 39300-0 Heart Rate 1: 80 bpm Height: 5'9" SpO2: 98% Weight: 131 lbs 08/17/2017 Blood Pressure 1: 130/74 Code: 8480-6 BMI: 19.6 Code: 10907-2 Heart Rate 1: 72 bpm Height: 5'9" SpO2: 98% Weight: 133 lbs 07/20/2017 Blood Pressure 1: 124/62 Code: 8480-6 BMI: 19.8 Code: 89276-2 Heart Rate 1: 65 bpm Height: 5'9" SpO2: 96% Weight: 134 lbs 07/01/2017 Blood Pressure 1: 134/64 Code: 8480-6 BMI: 21.0 Code: 42308-7 Height: 5'9" Weight: 142 lbs 06/21/2017 Blood Pressure 1: 142/80 Code: 8480-6 BMI: 21.0 Code: 52847-3 Heart Rate 1: 63 bpm Height: 5'9" SpO2: 98% Weight: 142 lbs 03/21/2017 Blood Pressure 1: 128/66 Code: 8480-6 BMI: 20.8 Code: 29839-1 Heart Rate 1: 61 bpm Height: 5'9" SpO2: 98% Weight: 141 lbs 03/08/2017 Blood Pressure 1: 134/68 Code: 8480-6 BMI: 20.4 Code: 53775-6 Heart Rate 1: 56 bpm Height: 5'9" SpO2: 99% Weight: 138 lbs 01/25/2017 Blood Pressure 1: 98/62 Code: 8480-6 BMI: 20.6 Code: 35392-9 Heart Rate 1: 71 bpm Height: 5'9" SpO2: 97% Weight: 139 lbs 8 oz 12/20/2016 Blood Pressure 1: 120/68 Code: 8480-6 BMI: 20.4 Code: 36381-4 Heart Rate 1: 70 bpm Height: 5'9" [...] 1: 120/60 Code: 8480-6 BMI: 20.7 Code: 15701-1 Heart Rate 1: 74 bpm Height: 5'9" SpO2: 95% Weight: 140 lbs 08/23/2016 Blood Pressure 1: 118/68 Code: 8480-6 BMI: 20.8 Code: 70056-2 Heart Rate 1: 54 bpm Height: 5'9" SpO2: 97% Weight: 141 lbs 04/26/2016 Blood Pressure 1: 108/64 Code: 8480-6 BMI: 21.0 Code: 56556-1 Heart Rate 1: 62 bpm Height: 5'9" SpO2: 95% Weight: 142 lbs 02/17/2016 Blood Pressure 1: 138/80 Code: 8480-6 BMI: 20.2 Code: 37684-8 Heart Rate 1: 76 bpm Height: 5'9" SpO2: 97% Weight: 137 lbs 02/09/2016 Blood Pressure 1: 140/76 Code: 8480-6 BMI: 20.2 Code: 52268-6 Heart Rate 1: 72 bpm Height: 5'9" SpO2: 96% Weight: 137 lbs 02/03/2016 Blood Pressure 1: 136/80 Code: 8480-6 BMI: 20.7 Code: 56164-7 Heart Rate 1: 86 bpm Height: 5'9" SpO2: 96% Weight: 140 lbs 01/26/2016 Blood Pressure 1: 144/78 Code: 8480-6 BMI: 20.7 Code: 18218-0 Heart Rate 1: 73 bpm Height: 5'9" SpO2: 97% Temperature: 37.0 (C ) / 98.6 (F) Weight: 140 lbs 01/21/2016 Blood Pressure 1: 116/62 Code: 8480-6 BMI: 20.4 Code: 66556-4 Heart Rate 1: 66 bpm Height: 5'9" SpO2: 97% Weight: 138 lbs 12/29/2015 Blood Pressure 1: 130/74 Code: 8480-6 BMI: 20.4 Code: 62933-4 Heart Rate 1: 51 bpm Height: 5'9" SpO2: 98% Weight: 138 lbs 09/02/2015 Blood Pressure 1: 126/60 Code: 8480-6 BMI: 22.3 Code: 33635-0 Heart Rate 1: 55 bpm Height: 5'9" SpO2: 96% Weight: 151 lbs 05/06/2015 Blood Pressure 1: 132/72 Code: 8480-6 BMI: 21.0 Code: 05078-6 Heart Rate 1: 63 bpm Height: 5'9" SpO2: 97% Weight: 142 lbs 03/05/2015 Blood Pressure 1: 130/68 Code: 8480-6 BMI: 21.0 Code: 80341-9 Heart Rate 1: 61 bpm Height: 5'9" SpO2: 96% Weight: 142 lbs 12/04/2014 Blood Pressure 1: 122/64 Code: 8480-6 BMI: 21.3 Code: 62270-4 Heart Rate 1: 72 bpm Height: 5'9" Weight: 144 lbs 09/24/2014 Blood Pressure 1: 142/80 Code: 8480-6 BMI: 20.4 Code: 86138-7 Heart Rate 1: 80 bpm Height: 5'9" Weight: 138 lbs 09/09/2014 Blood Pressure 1: 122/74 Code: 8480-6 BMI: 20.5 Code: 54256-8 Heart Rate 1: 64 bpm Height: 5'9" Weight: 139 lbs 07/26/2014 Blood Pressure 1: 136/82 Code: 8480-6 BMI: 20.4 Code: 13683-4 Heart Rate 1: 87 bpm Height: 5'9" SpO2: 92% Weight: 138 lbs 07/10/2014 Blood Pressure 1: 130/74 Code: 8480-6 BMI: 21.1 Code: 04624-4 Heart Rate 1: 64 bpm Height: 5'9" Weight: 143 lbs 06/06/2014 Blood Pressure 1: 142/88 Code: 8480-6 BMI: 20.4 Code: 83550-5 Heart Rate 1: 68 bpm Height: 5'9" Weight: 138 lbs 05/29/2014 Blood Pressure 1: 108/72 Code: 8480-6 BMI: 20.5 Code: 77247-2 Heart Rate 1: 60 bpm Height: 5'9" Weight: 139 lbs 05/20/2014 Blood Pressure 1: 140/72 Code: 8480-6 BMI: 21.6 Code: 73503-5 Heart Rate 1: 60 bpm Height: 5'9" SpO2: 98% Temperature: 36.2 (C ) / 97.2 (F) Weight: 146 lbs 03/25/2014 Blood Pressure 1: 128/60 Code: 8480-6 BMI: 21.4 Code: 32663-6 Heart Rate 1: 62 bpm Height: 5'9" Weight: 145 lbs 02/08/2014 Blood Pressure 1: 136/82 Code: 8480-6 BMI: 21.3 Code: 77597-7 Heart Rate 1: 68 bpm Height: 5'9" Weight: 144 lbs 12/24/2013 Blood Pressure 1: 122/76 Code: 8480-6 BMI: 21.6 Code: 87905-9 Heart Rate 1: 58 bpm Height: 5'9" Weight: 146 lbs 11/20/2013 Blood Pressure 1: 112/62 Code: 8480-6 BMI: 20.7 Code: 85364-9 Heart Rate 1: 56 bpm Height: 5'9" Weight: 140 lbs 10/30/2013 Blood Pressure 1: 130/68 Code: 8480-6 BMI: 20.1 Code: 47137-2 Heart Rate 1: 68 bpm Height: 5'9" SpO2: 96% Weight: 136 lbs 10/08/2013 Blood Pressure 1: 128/72 Code: 8480-6 BMI: 20.8 Code: 64238-1 Heart Rate 1: 60 bpm Height: 5'9" Temperature: 36.6 (C ) / 97.8 (F) Weight: 141 lbs 06/18/2013 Blood Pressure 1: 124/78 Code: 8480-6 BMI: 20.8 Code: 80917-6 Heart Rate 1: 64 bpm Height: 5'9" Weight: 141 lbs 04/04/2013 Blood Pressure 1: 138/60 Code: 8480-6 BMI: 20.8 Code: 04978-2 Heart Rate 1: 56 bpm Height: 5'9" Weight: 141 lbs 02/19/2013 Blood Pressure 1: 152/74 Code: 8480-6 BMI: 21.0 Code: 80978-3 Heart Rate 1: 60 bpm Height: 5'9" Weight: 142 lbs 10/16/2012 Blood Pressure 1: 122/70 Code: 8480-6 BMI: 20.8 Code: 41518-4 Heart Rate 1: 64 bpm Height: 5'9" Weight: 141 lbs 06/19/2012 Blood Pressure 1: 120/72 Code: 8480-6 BMI: 21.1 Code: 51645-8 Heart Rate 1: 60 bpm Height: 5'9" Weight: 143 lbs 03/20/2012 Blood Pressure 1: 114/76 Code: 8480-6 Heart Rate 1: 60 bpm Respiratory Rate: 16 bpm Weight: 143 lbs 01/24/2012 Blood Pressure 1: 134/70 Code: 8480-6 Heart Rate 1: 64 bpm Weight: 143 lbs 12/20/2011 Blood Pressure 1: 98/72 Code: 8480-6 BMI: 21.1 Code: 95390-3 Heart Rate 1: 60 bpm Height: 5'9" Respiratory Rate: 16 bpm Weight: 143 lbs 12/09/2011 Blood Pressure 1: 110/60 Code: 8480-6 Heart Rate 1: 66 bpm SpO2: 98% Weight: 141 lbs 08/25/2011 Blood Pressure 1: 112/70 Code: 8480-6 BMI: 20.8 Code: 30883-4 Heart Rate 1: 54 bpm Height: 5'9" Respiratory Rate: 16 bpm Weight: 141 lbs 06/23/2011 Blood Pressure 1: 126/64 Code: 8480-6 Heart Rate 1: 60 bpm Respiratory Rate: 16 bpm Weight: 142 lbs 04/19/2011 Blood Pressure 1: 124/64 Code: 8480-6 BMI: 21.1 Code: 75562-8 Heart Rate 1: 64 bpm Height: 5'9" Respiratory Rate: 16 bpm Weight: 143 lbs 03/23/2011 Blood Pressure 1: 137/71 Code: 8480-6 Heart Rate 1: 57 bpm 03/08/2011 Blood Pressure 1: 154/70 Code: 8480-6 BMI: 20.8 Code: 81263-2 Heart Rate 1: 60 bpm Height: 5'9" Respiratory Rate: 16 bpm Weight: 141 lbs 03/01/2011 Blood Pressure 1: 178/80 Code: 8480-6 Blood Pressure 2: 168/70 Code: 8480-6 BMI: 24.1 Code: 75597-8 Heart Rate 1: 60 bpm Height: 5'9" Respiratory Rate: 16 bpm Weight: 163 lbs 02/01/2011 Blood Pressure 1: 162/84 Code: 8480-6 Heart Rate 1: 60 bpm Respiratory Rate: 16 bpm Weight: 144 lbs 01/27/2011 Blood Pressure 1: 138/54 Code: 8480-6 BMI: 21.1 Code: 66605-8 Heart Rate 1: 68 bpm Height: 5'9" Respiratory Rate: 16 bpm Weight: 143 lbs 01/26/2011 Blood Pressure 1: 148/86 Code: 8480-6 BMI: 21.3 Code: 14780-8 Heart Rate 1: 74 bpm Height: 5'9" Weight: 144 lbs 01/15/2011 Blood Pressure 1: 136/76 Code: 8480-6 BMI: 20.5 Code: 90218-6 Heart Rate 1: 70 bpm Height: 5'10" Weight: 141 lbs 01/06/2011 Blood Pressure 1: 148/72 Code: 8480-6 BMI: 20.2 Code: 18406-0 Heart Rate 1: 72 bpm Height: 5'10" [...] chr onic 02/08/2018 None hypertension Quality ashlyn laly hypertension 02/08/2018 None hypertension Onset and Resolution [...] contacts 05/20/2014 None cough Location in the [facility] 03/25/2014 None cough Quality hacking 03/25/2014 None [...] Encounters Encounter Performer Loca tion Codes Date ([id number]) [id number] EST. P ATIENT, LEVEL IV Diagnosis: Essential (primary) hypertension[ICD10: I10] Diagnosis: Gastro-esophageal reflux disease without esophagitis[ICD10: K21.9] Diagnosis: Alzheimer's disease with late onset[ICD10: G30.1] Ale Carlos MD, C CPT-4: 87419 08/17/2018 ([id number]) [id number] EST. 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 CPT-4: 49270 05/18/2018 ([id number]) 60987 EST. P ATIENT, LEVEL III Diagnosis: Essential (primary) hypertension[ICD10: I10] Ale Carlos MD, [facility] CPT-4: 58172 04/13/2018 ([id number]) 29159 EST. P ATIENT, LEVEL IV Diagnosis: Irritable bowel syndrome with constipation[ICD10: K58.1] Diagnosis: Other lesions of oral mucosa[ICD10: K13.79] Diagnosis: Dry mouth, unspecified[ICD10: R68.2] Diagnosis: Encounter for immunization[ICD10: Z23] Diagnosis: Essential (primary) hypertension[ICD10: I10] Ale Carlos MD, [facility] CPT-4: 36018 02/08/2018 ([id number]) 06217 EST. P ATIENT, LEVEL III Diagnosis: Slow transit constipation[ICD10: K59.01] Diagnosis: Dry mouth, unspecified[ICD10: R68.2] Nelly Carlos MD, [facility] CPT-4: 95188 01/19/2018 ([id number]) Miscellaneou s no charge Diagnosis: Acute pharyngitis, unspecified[ICD10: J02.9] Nelly Carlos MD, [facility] CPT-4: 19175 01/13/2018 ([id number]) 30512 EST. P ATIENT, LEVEL III Diagnosis: Candidal stomatitis[ICD10: B37.0] Diagnosis: Cough[ICD10: R05] Nelly Carlos MD, [facility] CPT-4: 07078 01/12/2018 ([id number]) 56314 EST. P ATIENT, LEVEL IV Diagnosis: Essential (primary) hypertension[ICD10: I10] Diagnosis: Generalized anxiety disorder[ICD10: F41.1] Diagnosis: Major depressive disorder, single episode, mild[ICD10: F32.0] Diagnosis: Slow transit constipation[ICD10: K59.01] Ale Carlos MD, [facility] CPT-4: 24096 01/05/2018 ([id number]) 36317 EST. P ATIENT, LEVEL IV Diagnosis: Irritable bowel syndrome with constipation[ICD10: K58.1] Diagnosis: Malignant neoplasm of prostate[ICD10: C61] Ale Carlos MD, [facility] CPT-4: 92433 11/14/2017 90924 EST. PATIENT, LEVEL IV Diagnosis: Slow transit constipation[ICD10: K59.01] Diagnosis: Gastro-esophageal reflux disease without esophagitis[ICD10: K21.9] Ruchi Carlos MD, [facility] CPT-4: 40366 2017 ([id number]) [id number] EST. P ATIENT, LEVEL IV Diagnosis: Essential (primary) hypertension[ICD10: I10] Diagnosis: Slow transit constipation[ICD10: K59.01] Diagnosis: Underweight[ICD10: R63.6] Diagnosis: Gastro-esophageal reflux disease without esophagitis[ICD10: K21.9] Ale Carlos MD, [facility] CPT-4: 23037 10/13/2017 ([id number]) 57211 EST. P ATIENT, LEVEL IV Diagnosis: Slow transit constipation[ICD10: K59.01] Diagnosis: Gastroparesis[ICD10: K31.84] Diagnosis: Gastro-esophageal reflux disease without esophagitis[ICD10: K21.9] Diagnosis: Dysuria[ICD10: R30.0] Ale Carlos MD, [facility] CPT-4: 52055 09/26/2017 ([id number]) 59161 EST. P ATIENT, LEVEL IV Diagnosis: Other abnormal glucose[ICD10: R73.09] Diagnosis: Slow transit constipation[ICD10: K59.01] Ale Carlos MD, [facility] CPT-4: 10824 09/12/2017 33316 EST. PATIENT, LEVEL III Diagnosis: Other fatigue[ICD10: R53.83] Ruchi Carlos MD, [facility] CPT-4: 16226 09/09/2017 ([id number]) 12017 EST. P ATIENT, LEVEL IV Diagnosis: Slow transit constipation[ICD10: K59.01] Diagnosis: Irritable bowel syndrome with constipation[ICD10: K58.1] Diagnosis: Essential (primary) hypertension[ICD10: I10] Ale Carlos MD, C CPT-4: 09268 08/17/2017 ([id number]) 13629 EST. P ATIENT, LEVEL III Diagnosis: Slow transit constipation[ICD10: K59.01] Diagnosis: Gastroparesis[ICD10: K31.84] Ale Carlos MD, [facility] CPT-4: 60804 07/20/2017 75719 EST. PATIENT, LEVEL III Diagnosis: Irritable bowel syndrome with constipation[ICD10: K58.1] Ruchi Carlos MD, [facility] CPT-4: 89163 07/01/2017 ([id number]) 68544 EST. P ATIENT, LEVEL IV Diagnosis: Essential (primary) hypertension[ICD10: I10] Diagnosis: Gas pain[ICD10: R14.1] Diagnosis: Generalized anxiety disorder[ICD10: F41.1] Diagnosis: Cervicalgia[ICD10: M54.2] Diagnosis: Pain in thoracic spine[ICD10: M54.6] Diagnosis: Unsteadiness on feet[ICD10: R26.81] Ale Carlos MD, [facility] CPT- 4: 45027 06/21/2017 ([id number]) 90225 EST. P ATIENT, LEVEL III Diagnosis: Essential (primary) hypertension[ICD10: I10] Ale Carlos MD, [facility] CPT-4: 96765 03/21/2017 65928 EST. PATIENT, LEVEL III Diagnosis: Other allergic rhinitis[ICD10: J30.89] Nelly Carlos MD, [facility] CPT-4: 43182 03/08/2017 ([id number]) 26618 EST. P ATIENT, LEVEL III Diagnosis: Encounter for immunization[ICD10: Z23] Diagnosis: Other hypotension[ICD10: I95.89] Ale Carlos MD, [facility] CPT-4: 65641 01/25/2017 ([id number]) 77338 EST. P ATIENT, LEVEL III Diagnosis: Essential (primary) hypertension[ICD10: I10] Diagnosis: Acute recurrent maxillary sinusitis[ICD10: J01.01] Ale Carlos MD, [facility] CPT-4: 84056 12/20/2016 ([id number]) 80280 EST. P ATIENT, LEVEL III Diagnosis: Acute recurrent ethmoidal sinusitis[ICD10: J01.21] Ale Carlos MD, C CPT-4: 44804 12/01/2016 ([id number]) 77315 EST. P ATIENT, LEVEL III Diagnosis: Bronchitis, not specified as acute or chronic[ICD10: J40] Diagnosis: Cough[ICD10: R05] Ale Carlos MD, [facility] CPT-4: 58015 11/25/2016 ([id number]) 71829 EST. P ATIENT, LEVEL III Diagnosis: Cough[ICD10: R05] Diagnosis: Bronchitis, not specified as acute or chronic[ICD10: J40] Diagnosis: Candidal esophagitis[ICD10: B37.81] Ale Carlos MD, [facility] CPT- 4: 27894 11/18/2016 ([id number]) 59756 EST. P ATIENT, LEVEL IV Diagnosis: Essential (primary) hypertension[ICD10: I10] Diagnosis: Mild cognitive impairment, so stated[ICD10: G31.84] Ale Carlos MD, C CPT-4: 33089 08/23/2016 ([id number]) 51565 EST. P ATIENT, LEVEL III Diagnosis: Essential (primary) hypertension[ICD10: I10] Ale Carlos MD, C CPT-4: 40512 04/26/2016 ([id number]) Miscellaneou s no charge Diagnosis: Olecranon bursitis, right elbow[ICD10: M70.21] Nelly Carlos MD, [facility] CPT-4: 39062 02/09/2016 ([id number]) 52589 EST. P ATIENT, LEVEL III Diagnosis: Olecranon bursitis, right elbow[ICD10: M70.21] Nelly Carlos MD, [facility] CPT-4: 81267 02/03/2016 ([id number]) 85702 EST. P ATIENT, LEVEL III Diagnosis: Generalized abdominal tenderness[ICD10: R10.817] Ale Carlos MD, C CPT-4: 37453 01/26/2016 93095 EST. PATIENT, LEVEL IV Diagnosis: Other allergic rhinitis[ICD10: J30.89] Ruchi Carlos MD, [facility] CPT-4: 03453 01/21/2016 ([id number]) 22337 EST. P ATIENT, LEVEL IV Diagnosis: Essential (primary) hypertension[ICD10: I10] Diagnosis: Hypo-osmolality and hyponatremia[ICD10: E87.1] Ale Carlos MD, [facility] CPT-4: 44336 12/29/2015 ([id number]) 50296 EST. P ATIENT, LEVEL IV Diagnosis: Essential (primary) hypertension[ICD10: I10] Diagnosis: Mild cognitive impairment, so stated[ICD10: G31.84] Ale Carlos MD, [facility] CPT-4: 55675 09/02/2015 ([id number]) 04722 EST. P ATIENT, LEVEL IV Diagnosis: Mixed hyperlipidemia[ICD10: E78.2] Diagnosis: Generalized anxiety disorder[ICD10: F41.1] Diagnosis: Mild cognitive impairment, so stated[ICD10: G31.84] Diagnosis: Essential (primary) hypertension[ICD10: I10] Diagnosis: Encounter for immunization[ICD10: Z23] Ale Carlos MD, [facility] CPT-4: 04919 05/06/2015 ([id number]) 05872 EST. 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 CPT-4: 04044 03/05/2015 ([id number]) 02333 EST. P ATIENT, LEVEL IV Diagnosis: ESSENTIAL HYPERTENSION[ICD9: 401.9] Diagnosis: GENERALIZED ANXIETY DISEASE[ICD9: 300.02] Diagnosis: MILD COGNITIVE IMPAIREMT[ICD9: 331.83] Diagnosis: IRRITABLE COLON[ICD9: 564.1] Ale Carlos MD, [facility] CPT-4: 69107 12/04/2014 ([id number]) 97145 EST. P ATIENT, LEVEL IV Diagnosis: Abdominal pain[ICD9: 789.00] Diagnosis: GENERALIZED ANXIETY DISEASE[ICD9: 300.02] Diagnosis: Hyponatremia[ICD9: 276.1] Diagnosis: ESSENTIAL HYPERTENSION[ICD9: 401.9] Nelly Carlos MD, [facility] CPT-4: 31925 09/24/2014 ([id number]) 40518 EST. P ATIENT, LEVEL IV Diagnosis: ESSENTIAL HYPERTENSION[ICD9: 401.9] Diagnosis: Osteoarthritis[ICD9: 715.90] Diagnosis: Mild cognitive impairment with memory loss[ICD9: 331.83] Ale Carlos MD, C CPT-4: 66216 09/09/2014 ([id number]) 48968 EST. P ATIENT, LEVEL III Diagnosis: GENERALIZED ANXIETY DISEASE[ICD9: 300.02] Diagnosis: Depression[ICD9: 311] Ale Carlos MD, [facility] CPT-4: 12628 07/26/2014 ([id number]) 58031 EST. P ATIENT, LEVEL IV Diagnosis: ESSENTIAL HYPERTENSION[ICD9: 401.9] Diagnosis: GENERALIZED ANXIETY DISEASE[ICD9: 300.02] Diagnosis: MILD COGNITIVE IMPAIREMT[ICD9: 331.83] Ale Carlos MD, [facility] CPT-4: 89421 07/10/2014 ([id number]) 89029 EST. P ATIENT, LEVEL IV Diagnosis: Dizziness[ICD9: 780.4] Diagnosis: GENERALIZED ANXIETY DISEASE[ICD9: 300.02] Diagnosis: Depression[ICD9: 311] Diagnosis: ESSENTIAL HYPERTENSION[ICD9: 401.9] Diagnosis: Urinary frequency[ICD9: 788.41] Ale Carlos MD, [facility] CPT-4: 08031 06/06/2014 ([id number]) 20346 EST. P ATIENT, LEVEL IV Diagnosis: ESSENTIAL HYPERTENSION[ICD9: 401.9] Diagnosis: GENERALIZED ANXIETY DISEASE[ICD9: 300.02] Diagnosis: Mild cognitive impairment with memory loss[ICD9: 331.83] Ale Carlos MD, C CPT-4: 74239 05/29/2014 ([id number]) 75930 EST. P ATIENT, LEVEL IV Diagnosis: Pneumonia[ICD9: 486] Diagnosis: COUGH[ICD9: 786.2] Diagnosis: Hyponatremia[ICD9: 276.1] Diagnosis: ALLERGIC RHINITIS[ICD9: 477.9] Ale Carlos MD, [facility] CPT-4: 68635 05/20/2014 ([id number]) 70018 EST. P ATIENT, LEVEL III Diagnosis: ESSENTIAL HYPERTENSION[ICD9: 401.9] Diagnosis: Cough[ICD9: 786.2] Ale Carlos MD, [facility] CPT-4: 37625 03/25/2014 ([id number]) 34271 EST. P ATIENT, LEVEL III Diagnosis: COUGH[ICD9: 786.2] Diagnosis: ALLERGIC RHINITIS[ICD9: 477.9] Nelly Carlos MD, [facility] CPT- 4: 16775 02/08/2014 ([id number]) 95306 EST. P ATIENT, LEVEL III Diagnosis: ESSENTIAL HYPERTENSION[ICD9: 401.9] Diagnosis: Nasal congestion[ICD9: 478.19] Ale Carlos MD, [facility] CPT-4: 65557 12/24/2013 ([id number]) 58980 EST. P ATIENT, LEVEL III Diagnosis: Seasonal allergies[ICD9: 477.9] Diagnosis: Nasal congestion[ICD9: 478.19] Diagnosis: ABNORMAL LOSS OF WEIGHT[ICD9: 783.21] Ale Carlos MD, [facility] CPT-4: 41398 11/20/2013 ([id number]) 11910 EST. P ATIENT, LEVEL III Diagnosis: ABNORMAL LOSS OF WEIGHT[ICD9: 783.21] Diagnosis: MALAISE AND FATIGUE[ICD9: 780.79] Diagnosis: Hyponatremia[ICD9: 276.1] Nelly Carlos MD, [facility] CPT- 4: 46045 10/30/2013 ([id number]) 69018 EST. P ATIENT, LEVEL III Diagnosis: Acute maxillary sinusitis[ICD9: 461.0] Diagnosis: COUGH[ICD9: 786.2] Ale Carlos MD, [facility] CPT-4: 06615 10/08/2013 ([id number]) 28808 EST. P ATIENT, LEVEL IV Diagnosis: ESSENTIAL HYPERTENSION[SNOMED: 81304612] Diagnosis: GENERALIZED ANXIETY DISEASE[ICD9: 300.02] Diagnosis: OSTEOARTH NOS-UNSPEC[ICD9: 715.90] Diagnosis: Coronary artery disease[ICD9: 414.00] Ale Carlos MD, [facility] CPT-4: 10615 06/18/2013 ([id number]) 95853 EST. P ATIENT, LEVEL III Diagnosis: ESSENTIAL HYPERTENSION[SNOMED: 28351953] Ale Carlos MD, [facility] CPT-4: 54145 04/04/2013 ([id number]) 00708 EST. P ATIENT, LEVEL IV Diagnosis: ESSENTIAL HYPERTENSION[SNOMED: 03733475] Diagnosis: Leukopenia[ICD9: 288.50] Diagnosis: Encounter for long-term (current) use of other medications[ICD9: V58.69] Ale Carlos MD, [facility] CPT-4: 46857 02/19/2013 ([id number]) 47367 EST. P ATIENT, LEVEL IV Diagnosis: ESSENTIAL HYPERTENSION[SNOMED: 89280364] Diagnosis: MILD COGNITIVE IMPAIREMT[ICD9: 331.83] Ale Carlos MD, [facility] CPT-4: 32048 10/16/2012 ([id number]) 74453 EST. P ATIENT, LEVEL IV Diagnosis: ESSENTIAL HYPERTENSION[SNOMED: 74030821] Diagnosis: GENERALIZED ANXIETY DISEASE[ICD9: 300.02] Diagnosis: IRRITABLE COLON[ICD9: 564.1] Ale Carlos MD, [facility] CPT-4: 16393 03/20/2012 49727 EST. PATIENT, LEVEL IV Diagnosis: ESSENTIAL HYPERTENSION[SNOMED: 81090336] Diagnosis: Osteoarthritis[ICD9: 715.90] Diagnosis: HYPERLIPIDEMIA[ICD9: 272.4] Ale Carlos MD, [facility] CPT-4: 28015 01/24/2012 68832 EST. PATIENT, LEVEL IV Diagnosis: ESSENTIAL HYPERTENSION[SNOMED: 89555980] Diagnosis: BPH W URINARY OBS/LUTS[ICD9: 600.01] Ale Carlos MD, [facility] CPT-4: 69905 12/20/2011 ([id number]) 33877 EST. P ATIENT, LEVEL III Diagnosis: Lump in the groin[ICD9: 789.30] Ale Carlos MD, [facility] CPT-4: 56647 12/09/2011 ([id number]) 98308 EST. P [facility], LEVEL IV Diagnosis: ESSENTIAL HYPERTENSION[SNOMED: 42596028] Diagnosis: Mild cognitive impairment[ICD9: 331.83] Ale Carlos MD, [facility] CPT-4: 65218 08/25/2011 ([id number]) 15851 EST. P ATIENT, LEVEL IV Diagnosis: ESSENTIAL HYPERTENSION[SNOMED: 07640780] Diagnosis: GENERALIZED ANXIETY DISEASE[ICD9: 300.02] Diagnosis: MILD COGNITIVE IMPAIREMT[ICD9: 331.83] Diagnosis: IRRITABLE COLON[ICD9: 564.1] Ale Carlos MD, [facility] CPT-4: 61382 06/23/2011 ([id number] 83395 EST. 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 PATIENT, LEVEL I Diagnosis: ESSENTIAL HYPERTENSION[SNOMED: 34240699] Ale Carlos MD, [facility] CPT-4: 36806 03/23/2011 14000 EST. PATIENT, LEVEL III Diagnosis: ESSENTIAL HYPERTENSION[SNOMED: 15523117] Diagnosis: Laceration of finger, index[ICD9: 883.0] Ale Carlos MD, [facility] CPT-4: 66803 03/08/2011 35604 EST. PATIENT, LEVEL III Diagnosis: ESSENTIAL HYPERTENSION[SNOMED: 88647684] Diagnosis: Irritable bowel syndrome (IBS)[ICD9: 564.1] Ale Carlos MD, [facility] CPT-4: 69304 03/01/2011 22078 EST. PATIENT, LEVEL IV Diagnosis: Mild cognitive impairment with memory loss[ICD9: 331.83] Diagnosis: GENERALIZED ANXIETY DISEASE[ICD9: 300.02] Diagnosis: Bruising[ICD9: 924.9] Diagnosis: HYDROCELE[ICD9: 603.9] Ale Carlos MD, [facility] CPT-4: 41403 02/01/2011 94389 EST. PATIENT, LEVEL III Diagnosis: Testicular pain[ICD9: 608.9] Diagnosis: GENERALIZED ANXIETY DISEASE[ICD9: 300.02] Nelly Carlos MD, [facility] CPT-4: 40381 01/27/2011 20407 EST. PATIENT, LEVEL III Diagnosis: Arm bruise[ICD9: 923.9] Nelly Carlos MD, [facility] CPT-4: 10059 01/26/2011 OFFICE VISIT, NEW - LEVEL 4 Diagnosis: DIARRHEA[ICD9: 787.91] Diagnosis: Elevated liver function tests[ICD9: 790.6] Diagnosis: Abdominal discomfort[ICD9: 789.00] Ale Carlos MD, [facility] CPT- 4: 51568 01/06/2011 Plan of Care Planned Activity Notes [...] this medication. 08/17/2018 Appointment: Ale Carlos WPtel: [address] [place], [place] [address] (15 min) Moderate 08/17/2018 Patient Education: Patient [...] debridement. 05/18/2018 Appointment: Ale Carlos WPtel: [phone] [facility] (15 min) Moderate 05/18/2018 Patient Education: [...] mouth discomfort. 04/13/2018 Appointment: Ale Carlos WPtel: [facility]0 [facility] (30 min) Complex 04/13/2018 Patient Education: Patient [...] GI upset. 02/08/2018 Appointment: Ale Carlos WPtel: [phone] [facility] (30 min) Complex 02/08/2018 Patient Education: Patient Medication Summary Completed 02/08/2018 Patient Education: Hypertension Completed 02/08/2018 Appointment: Nelly Keen WPtel: [facility]5 [phone] (15 min) Moderate 02/02/2018 Visit Plan: Zwlrjcmpmnho-tcdqhey-rr start trulance 3mg daily Dry mouth-biotene mouth spray 01/19/2018 Appointment: Ale Carlos WPtel: [facility]6 [facility] (30 min) Complex 01/19/2018 Patient Education: [...] or concerns 01/12/2018 Appointment: Nelly Keen WPtel: [facility]5 [phone] (15 min) Moderate 01/12/2018 Patient Education: [...] bedtime. 01/05/2018 Appointment: Ale Carlos WPtel: [phone] [facility] (15 min) Moderate 01/05/2018 Patient Education: Patient Medication Summary Completed 01/05/2018 Appointment: Ale Carlos WPtel: [phone] [facility] (30 min) Complex 01/04/2018 Visit Plan: Irritable [...] 11/03/2017 Care Plan: Referral Order SNOMED-CT : 954747371 Pending 10/28/2017 Visit Plan: Constipation - uncontro [...] not improving. 2017 [facility] ([facility] Moderate 2017 Patient Education: Patient [...] portion size. 10/13/2017 Appointment: Ale Carlos WPtel: [address] [place], [place] [address] (30 min) Complex 10/13/2017 Patient Education: Patient [...] the medication. 09/26/2017 Appointment: Ale Carlos WPtel: [facility] (15 min) Moderate 09/26/2017 Patient Education: Patient Medication Summary Completed 09/26/2017 Appointment: Ale Carlos WPtel: [facility]9 [facility] (30 min) Complex 09/14/2017 Visit Plan: [...] the ER. 09/12/2017 Appointment: Ale Carlos WPtel: [facility]3 [facility] (30 min) Complex 09/12/2017 Patient Education: Patient Medication Summary Completed 09/12/2017 Visit Plan: Ongoing fatigue - persi stent - will check labs and treat as indicated - pt is to notify clinic if symptoms do not improve, if they worsen, or with any changes, questions, or concerns. 09/09/2017 Appointment: Ruchi Agee WPtel: [facility] ([facility]) Complex 09/09/2017 Patient Education: Patient [...] at home. 08/17/2017 Appointment: Ale Carlos WPtel: [facility]0 [facility] (15 min) Moderate 08/17/2017 Patient Education: [...] regular foods. 07/20/2017 Appointment: Ale Carlos WPtel: [facility]5 [facility] (30 min) Complex 07/20/2017 Appointment: Ale Carlos WPtel: [address] [place], [place] [phone] (30 min) Complex 07/20/2017 Patient Education: Patient Medication Summary Completed 07/20/2017 Appointment: Ale Carlos WPtel: [address] [place], [place] [phone] (30 min) Complex 07/19/2017 Appointment: Ale Carlos WPtel: [address] [place], [place] [phone] [place] (15 min) Moderate 07/18/2017 Visit Plan: [...] this regimen. 07/01/2017 Appointment: Ruchi Agee WPtel: [facility]6 [facility] [place] (30 min) Complex 07/01/2017 Appointment: Ruchi Agee WPtel: [facility]5 [facility] (30 min) Complex 07/01/2017 Patient Education: Patient Medication Summary Completed 07/01/2017 Visit Plan: Neck and upper back reji n and gait unsteadiness - referral to Ul[facility] castañeda for upper and low back pain and left arm pain and have gait eval. get As[employer] from [employer] for your upper neck/upper back. Abdominal upset/cramping - lactaid pills - take before you drink milk or eat cheese or ice cream or yogurt use gas-ex one pill three times daily Chronic anxiety - stable - continue with current management. 06/21/2017 Appointment: Ale Carlos WPtel: [phone] [facility] (30 min) Complex 06/21/2017 Patient Education: [...] home. 03/21/2017 Appointment: Ale Carlos WPtel: [phone] [facility] (30 min) Complex 03/21/2017 Patient Education: [...] spray. 03/08/2017 Appointment: [phone] [place] (30 min) Complex 03/08/2017 Patient Education: [...] shot 01/25/2017 Appointment: Ale Carlos WPtel: [facility]1 [address] (30 min) Complex 01/25/2017 Patient Education: [...] not improving. 12/20/2016 Appointment: Ale Carlos WPtel: [facility]4 [address] (30 min) Complex 12/20/2016 Patient Education: Patient Medication Summary Completed 12/20/2016 Patient Education: Hypertension Completed 12/20/2016 Appointment: Ruchi Agee WPtel: [facility] - Annual Wellness Visit 12/03/2016 Visit Plan: [...] acutely worsen. 11/25/2016 Appointment: Ale Carlos WPtel: [facility]4 [address] (15 min) Moderate 11/25/2016 Patient Education: [...] thrush. 11/18/2016 Appointment: Ale [facility]el[phone] (15 min) Moderate 11/18/2016 Patient Education: Patient [...] and namenda. labs to be done from [facility] 08/23/2016 Appointment: Ale Carlos WPtel: [phone] [facility] (30 min) Complex 08/23/2016 Patient Education: [...] home. 04/26/2016 Appointment: Ale Carlos WPtel: [facility]6 [facility] (30 min) Complex 04/26/2016 Patient Education: Patient Medication Summary Completed 04/26/2016 Visit Plan: Joint effusion - recomm ended drainage and referral to orthopedic surgeon for surgical debridement of bursa 02/17/2016 Appointment: Ale Carlos WPtel: [facility] [place] (30 min) Complex 02/17/2016 Patient Education: Patient Medication Summary Completed 02/17/2016 Visit Plan: Bursitis-right elbow-dr healy today in the office- increase anti inflammatories for the next 5 days as directed-call if symptoms do not resolve, swelling returns or new symptoms develop-patient verbalized understanding of plan. 02/09/2016 Appointment: Nelly Keen WPtel: [phone] [phone] [place] (30 min) Complex 02/09/2016 Patient Education: [...] plan. 02/03/2016 Appointment: Nelly Keen WPtel: [facility]5 [phone] (30 min) Complex 02/03/2016 Patient Education: Patient Medication Summary Completed 02/03/2016 Patient Education: Patient Medication Summary Completed 01/30/2016 Care Plan: Metabolic Due on Pending 01/30/2016 Visit Plan: Abdominal pain - nausea - Pt to have IV fluids at [facility] 01/26/2016 Appointment: Ale Carlos WPtel: [facility]7 [facility]6[address] (30 min) Complex 01/26/2016 Patient Education: Patient [...] spray. 01/21/2016 Appointment: [phone] (30 min) Complex 01/21/2016 Patient Education: [...] of treatment. 09/02/2015 Appointment: Ale Carlos [facility]Ptel[phone] (15 min) Moderate 09/02/2015 Patient Education: Patient [...] injection today 05/06/2015 Appointment: Ale Carlos [facility]Ptel: [phone] (15 min) Moderate 05/06/2015 Patient Education: Patient Medication Summary Completed 05/06/2015 Patient Education: Hypertension Completed 05/06/2015 Care Plan: COMPLETE CBC AUTOMATED LOINC : 19197-8 Ordered 05/06/2015 Visit Plan: Hypertension - well [...] medications. 03/05/2015 Appointment: Ale Carlos WPtel: [phone] [facility] (30 min) Complex 03/05/2015 Patient Education: [...] improved. 12/04/2014 Appointment: Ale Carlos [facility]Ptel: [phone] Follow up 12/04/2014 Patient Education: Patient Medication [...] Plan: CT ABD & PELV 1/> [facility] : 56987-3 Ordered 09/24/2014 Visit Plan: Hypertension - well [...] THAT HE SHOULD NOT BE DRIVING TO [place] 07/26/2014 Appointment: Sick 07/26/2014 Appointment: Sick [...] medication list. 07/10/2014 Appointment: Ale Carlos WPtel: [address] [place] [address] Follow up 07/10/2014 Patient Education: Patient Medication Summary Completed 07/10/2014 Patient Education: Hypertension Completed 07/10/2014 Appointment: Ale Carlos WPtel: [address] [place], [place] [phone] Follow up 06/20/2014 Appointment: Ale Carlos WPtel: [facility]5 [facility] Follow up 06/10/2014 Visit Plan: Anxiety [...] in blood pressure readings at home. Urinary neeouadfl-BWJ-vtwxud flomax to bedtime Dizziness-stop hydrocodone and ativan [...] 3 WEEKS 05/29/2014 Appointment: Ale Carlos WPtel: [facility]8 [facility] Sick 05/29/2014 Patient Education: Patient Medication Summary Completed 05/29/2014 Patient Education: Hypertension Completed 05/29/2014 Appointment: Ale Carlos WPtel: [facility]4 [facility] Lab Draw 05/23/2014 Patient Education: Patient Medication Summary Completed 05/23/2014 Visit Plan: Pneumonia - Pt has been diagnosed with pneumonia by physical exam. A chest xray has been ordered as have antibiotics. The pt is aware of the diagnosis and the need for acute treatment of this illness. A jldzaxuz-idymm-sojhacv flonase nasal spray Hyponatremia-increase gatorade as directed 05/20/2014 Visit Plan: Pneumonia - Pt has been diagnosed with pneumonia by physical exam. A chest xray has been ordered as have antibiotics. The pt is aware of the diagnosis and the need for acute treatment of this illness. A niaupoes-ppwrz-phuwgcq flonase nasal spray Hyponatremia-increase gatorade as directed ADDENDUM: RECOMMEND PATIENT START ON ALBUTEROL NEBULIZER TREATMENTS EVERY 4 HOURS NEEDED FOR SHORTNESS OF BREATH/WHEEZING. DX SECONDARY PNEUMONIA FROM INFLUENZA, COUGH 05/20/2014 Patient Education: Patient Medication Summary Completed 05/20/2014 Appointment: Ale Carlos WPtel: [phone] [facility] Injection 03/26/2014 Patient Education: Patient Medication [...] [place]. 03/25/2014 Appointment: Ale Carlos WPtel: [phone] [facility] Follow up 03/25/2014 Patient Education: Patient Medication Summary Completed 03/25/2014 Patient Education: Hypertension Completed 03/25/2014 Visit Plan: Ywcze-ybxvkvabr-yqwmhik laryngeal reflux-RX for protonix (patient is on [...] at home. 12/24/2013 Appointment: Ale Carlos WPtel: [address] [place], [place] [phone] Follow up 12/24/2013 Patient Education: Patient Medication [...] portion size. 11/20/2013 Appointment: Ale Carlos WPtel: [address] [place], [place] [phone] Follow up 11/20/2013 Patient Education: Patient Medication Summary Completed 11/20/2013 Appointment: Ale Carlos WPtel: [address] [place], [place] [phone] Follow up 11/06/2013 Visit Plan: Weight loss-increase po rtions-add snacks in the morning and afternoon-follow up in 3 weeks for weight check Low sodium-check labs-restart gatorade Ecyvyhb-djvgki-hdmqx labs and UA 10/30/2013 Patient Education: Patient Medication Summary Completed 10/30/2013 Appointment: Ale Carlos WPtel: [address] [place], [place] [id number] Follow up 10/16/2013 Visit Plan: Sinusitis - [...] Dr. Merlos. 06/18/2013 Appointment: [phone] Follow up 06/18/2013 Patient Education: Patient Medication [...] concerns. 04/04/2013 Appointment: [facility]el[phone] Follow up 04/04/2013 Patient Education: Patient Medication [...] report. 02/19/2013 Appointment: [facility]el[phone] Follow up 02/19/2013 Patient Education: Patient Medication [...] loss. 10/16/2012 Appointment: [facility]el[phone] Follow up 10/16/2012 Patient Education: Patient Medication [...] symptoms of irritable colon return. 06/19/2012 Appointment: Ael Carlos [facility]Ptel[phone] Follow up 06/19/2012 Patient Education: Patient Medication [...] bentyl. 03/20/2012 Appointment: Ale [facility]el[phone] Follow up 03/20/2012 Patient Education: Patient Medication Summary Completed 03/20/2012 Patient Education: High Blood Pressure: Essential Hypertension Completed 03/20/2012 Appointment: [facility]el[phone] Follow up 02/22/2012 Visit Plan: Hypertension - [...] as needed. 01/24/2012 Appointment: Ale Carlos WPtel: [facility]5 [facility] Follow up 01/24/2012 Patient Education: Patient [...] have the biopsy until okayed by his editor index.. I anticipate it will be at least 4-6 months before he can be off of the plavix and aspirin for additonal procedures unless it is of extreme urgency. 12/20/2011 Appointment: Ale Carlos WPtel: [facility] Follow up 12/20/2011 Patient Education: Patient Medication Summary Completed 12/20/2011 Patient Education: High Blood Pressure: Essential Hypertension Completed 12/20/2011 Appointment: Ale Carlos WPtel: [facility] Other 12/13/2011 Visit Plan: Pain in groin post hear t cath with increased discomfort and increased size - will order an ultrasound for today. 12/09/2011 Appointment: Ale Carlos [facility]Ptel: [phone] Other 12/09/2011 Patient Education: Patient Medication Summary [...] either medication. 08/25/2011 Appointment: Ale Carlos WPtel: [facility]5 [facility] Other 08/25/2011 Patient Education: Patient Medication Summary [...] low doses. 06/23/2011 Appointment: Ale Carlos WPtel: [address] [place], [place] [id number] Other 06/23/2011 Patient Education: Patient Medication Summary Completed 06/23/2011 Patient Education: High Blood Pressure: Essential Hypertension Completed 06/23/2011 Appointment: Ale Carlos WPtel: [address] [place], [place] [phone] [place] Other 04/26/2011 Visit Plan: Hypertension - [...] seeds, etc. 04/19/2011 Appointment: Ale Carlos WPtel: [facility]8 [facility] Other 04/19/2011 Patient Education: Patient Medication Summary Completed 04/19/2011 Patient Education: High Blood Pressure: Essential Hypertension Completed 04/19/2011 Patient Education: Diverticulosis Diet Completed 04/19/2011 Appointment: Nelly Keen WPtel: [facility]4 [id number] Other 03/23/2011 Patient Education: Patient Medication [...] arise. 03/08/2011 Appointment: Ale Carlos WPtel: [facility] Other 03/08/2011 Patient Education: Patient Medication Summary [...] day. 03/01/2011 Appointment: Ale Carlos WPtel: [phone] [facility] [place] Other 03/01/2011 Patient Education: Patient Medication Summary Completed 03/01/2011 Patient Education: High Blood Pressure: Essential Hypertension Completed 03/01/2011 Appointment: Nelly Keen WPtel: [phone] [phone] [place] Injection 02/25/2011 Patient Education: Patient Medication Summary Completed 02/25/2011 Appointment: Ale Carlos WPtel: [phone] [facility] [place] Injection 02/16/2011 Patient Education: Patient Medication Summary Completed 02/16/2011 Appointment: [facility]Ptel[phone] [place] Injection 02/09/2011 Patient Education: Patient Medication Summary Completed 02/09/2011 Appointment: Ale Carlos WPtel: [phone] [facility] [place] Follow up 02/02/2011 Visit Plan: [...] with his son - Kenji Dash in [place]. Upon our conversation npxp-[id number]-[id number], Kenji vocalized concerns for his Dad's memory. He stated that he has noticed his father not being as quick in his cognitive functioning, he has noticed some concerns with driving as well. He states that he will discuss these concerns with his parents and other siblings. 02/01/2011 Appointment: Ale Carlos WPtel: [facility]5 [facility] Other 02/01/2011 Patient Education: Patient Medication [...] as needed. 01/27/2011 Appointment: Ale Carlos WPtel: [facility]5 [facility] [place] New Patient 01/27/2011 Patient Education: Patient Medication Summary Completed 01/27/2011 Visit Plan: Bruising/hematoma left arm-discussed natural and expected course of this diagnosis and to alert me if symptoms do not follow expected course or if any worse, Continue with ice/heat as needed for disc omfort. Call for any concerns. 01/26/2011 Appointment: Nelly Keen [facility]Ptel: [facility] Other 01/26/2011 Patient Education: Patient Medication Summary [...] THE EVENING OF 01/15/11 01/15/2011 Appointment: [phone] Other 01/15/2011 Patient Education: Patient Medication [...] diet. 01/06/2011 Appointment: Ale [facility]Ptel: [phone] [place] New Patient 01/06/2011 Patient Education: Patient [...] need for acute treatment of this illness. Irdhltuey-heeux-itnuudy flonase nasal spray Hyponatremia-increase gatorade as directed [...] be evaluated and call pt with report. stop the cefuroxime - start on azithromycin [...] and swallow - you have thrush. . Abdominal pain - n ausea - Pt to have IV fluids at hospital . Hypertension - wel l controlled - [...] change in current medications. . Hypertension - unc ontrolled - the [...] improved on this regimen. I sent a prescriptio n of generic zyrtec to [facility] - if it is expensive get [...] Dr. Yates for nail debridement. . Hypertension and C oronary artery disease- [...] have the biopsy until okayed by his editor index.. I anticipate it will be at least 4-6 months before he can be off of the plavix and aspirin for additonal procedures unless it is of extreme urgency. CHECK LABS-CBC, CMP, UA WITH C&S IF INDICATED . Weight loss-increase portions-add snac ks in the morning and afternoon-follow up in 3 weeks for weight check Low sodium-check labs-restart gatorade Wkzowtp-dxuqtr-bhppi labs and UA . Joint effusion - [...] for discomfort. Call for any concerns. . Thrush -okay to re start the [...] symptoms develop-patient verbalized understanding of plan. . Pneumonia - Pt has been diagnosed with pneumonia by physical exam. A chest xray has been ordered as have antibiotics. The pt is aware of the diagnosis and the need for acute treatment of this illness. Lzqrpfsfu-awowd-yelondj flonase nasal spray Hyponatremia-increase gatorade as directed ADDENDUM: RECOMMEND PATIENT START ON ALBUTEROL NEBULIZER TREATMENTS EVERY 4 HOURS NEEDED FOR SHORTNESS OF BREATH/WHEEZING. DX SECONDARY PNEUMONIA FROM INFLUENZA, COUGH stop the multivitami n stop the calcium [...] a sandwich with his ensure at bedtime. Dr. Cralos talked to Dr. Merlos today - He [...] and namenda. labs to be done from [facility] call the office in 2 weeks [...] to call if symptoms are not improving. decrease Protonix (p antoprazole) to ONE pill [...] in blood pressure readings at home. . Drffd-qwizzyvhy-gt spect laryngeal reflux-RX for protonix (patient is [...] with use of mobic at low doses. get Aspercreme from [facility] for your upper [...] and have gait eval. get Aspercreme from [facility] for your upper neck/upper back. Abdominal upset/cramping - lactaid pills - take before you drink milk or eat cheese or ice cream or yogurt use gas-ex one pill three times daily Chronic anxiety - stable - continue with current management. Appointment [address] [place] [address] Carlos. Recommend Lactobacillus 1 orally [...] his GI issues while on this medication. for now - keep on e Miralax [...] in blood pressure readings at home. . Hydrocele and vari cocele- Recommend wearing [...] with his son - Kenji Dash in [place]. Upon our conversation tilf-rrq-owngj, Kenji vocalized concerns for his Dad's memory. He stated that he has noticed his father not being as quick in his cognitive functioning, he has noticed some concerns with driving as well. He states that he will discuss these concerns with his parents and other siblings. stop losartan - [facility] k blood pressure and heart rate [...] spray -it is over the counter . Eahspewtzcwp-qwaceas-wrubmjl trulance 3mg daily Dry mouth-biotene mouth spray [...] of movement - stop the medication. . Chronic Depression and anxiety-improved over the past several weeks- the pt has symptoms of chronic anxiety and depression that have been fairly well controlled since the last office visit. The pt has expected periods of exacerbation with abatement of the symptoms with change in situational exposure. No change in current medications. INSTRUCTED PATIENT THAT HE SHOULD NOT BE DRIVING TO [place] Pt is to try 1/2 pil [...] in blood pressure readings at home. Urinary yqxmsiisf-CDS-jmahmf flomax to bedtime Dizziness-stop hydrocodone and ativan [...] I have discussed this with Dr. Merlos. INCREASE ARICEPT (DO NEPEZIL) TO 5MG TAKEN [...] TO HOSPITAL IN THE EVENING OF 01/15/11 decrease CELEXA (gen ernie name is citalopram) [...] of irritable colon return. . Hypertension - wel l controlled [...]
--- OUTSIDE RECORDS SUMMARY | 2019-07-16 07:26 | XMS REPORT | CCD ---
Author Author Kenneth Carlos Organization Ale Carlos MD, [facility] Address [address] [place] [address] Phone Care Team Providers Care Coffee Machine Technician Name Role Phone Ale Carlos PP Unavailable CCM Unavailable Summary Purpose Interface Exchange Insurance Providers Payer name Policy type / Coverage type Covered alliance party ID Effective Begin Date Effective End Date WPS Medicare Part B Medicare Part B [id number] Unknown Unknown [facility] icare Part B [id number] Unknown Unk nown Family history Runs in the family Diagnosis Age At Onset No Family Disease Entered N/A Mother Diagnosis Age At Onset No Family Disease Entered N/A Father Diagnosis Age At Onset Heart disease Unknown Social History Social History Element Codes Description Effective Dates Number of children Unknown 3 3 ([place], [place], [place]) 2014 Living arrangements Unknown House 01/11/2011 Number of adults in household Unknown 2 01/11/2011 Education level Unknown Post-Graduate PHD in chemistry 01/11/2011 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 Unknown Has never used illegal drugs 011 Allergies, Adverse Reactions, Alerts Substance Reaction Codes Entered Date Inactivated Date Status Lisinopril cough Unknown 03/25/2014 No In active Date Active Past Medical History Illness Codes Condition Status Onset Date Resolved Date Bronchitis, not spec ified as acute or chronic ICD-9: 490 ICD-10: J40 Active 11/18/2016 Unknown Candidal esophagitis ICD-9: 112.84 ICD-10: B37.81 Active 11/18/2016 Unknown Cough ICD-9: 786.2 ICD-10: R05 Active 11/18/2016 Unknown Essential (primary) hypertension ICD-9: 401.9 ICD-10: I10 Active 12/24/2013 Unknown Mild cognitive impai rment, so stated ICD-9: 331.83 ICD-10: G31.84 Active 05/29/2014 Unknown Olecranon bursitis, right elbow ICD-9: 726.33 ICD-10: M70.21 Active 02/16/2016 Unknown Hypo-osmolality and hyponatremia ICD-9: 276.1 ICD-10: E87.1 Active 02/04/2016 Unknown Generalized abdomina l tenderness ICD-9: 789.67 ICD-10: R10.817 Active 01/25/2016 Unknown Other allergic rhinitis ICD-9: 477.8 ICD-10: J30.89 Active 01/20/2016 Unknown Encounter for immuni zation ICD-9: V03.9 ICD-10: Z23 Active 05/05/2015 Unknown Generalized anxiety disorder ICD-9: 300.02 ICD-10: F41.1 Active 05/29/2014 Unknown Mixed hyperlipidemia ICD-9: 272.4 ICD-10: E78.2 Active 01/24/2012 Unknown 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 ICD-10: K21.9 Active 03/04/2015 Unknown Major depressive dis order, single episode, 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 ICD-10: F32.0 Active 06/06/2014 Unknown Encounter for immuni zation ICD-9: V04.81 ICD-10: Z23 Active 02/19/2015 Unknown IRRITABLE COLON ICD-9: 564.1 Active 12/04/2014 [...] Unknown Active 03/01/2011 Unknow n Need for chickenpox vaccination ICD-9: V05.4 Active 02/0702/25/2011 Need for shingles va ccine ICD-9: V04.89 [...] Condition Codes Effectiv e Dates Condition Status Bronchitis, not spec ified as acute or chronic ICD-9: 490 ICD-10: J40 11/18/2016 Active Candidal esophagitis ICD-9: 112.84 ICD-10: B37.81 11/18/2016 Active Cough ICD-9: 786.2 ICD-10: R05 11/18/2016 Active Essential (primary) hypertension ICD-9: 401.9 ICD-10: I10 12/24/2013 Active Mild cognitive impai rment, so stated ICD-9: 331.83 ICD-10: G31.84 05/29/2014 Active Olecranon bursitis, right elbow ICD-9: 726.33 ICD-10: M70.21 02/16/2016 Active Hypo-osmolality and hyponatremia ICD-9: 276.1 ICD-10: E87.1 02/04/2016 Active Generalized abdomina l tenderness ICD-9: 789.67 ICD-10: R10.817 01/25/2016 Active Other allergic rhinitis ICD-9: 477.8 ICD-10: J30.89 01/20/2016 Active Encounter for immuni zation ICD-9: V03.9 ICD-10: Z23 05/05/2015 Active Generalized anxiety disorder ICD-9: 300.02 ICD-10: F41.1 05/29/2014 Active Mixed hyperlipidemia ICD-9: 272.4 ICD-10: E78.2 01/24/2012 Active 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 ICD-10: K21.9 03/04/2015 Active Major depressive dis order, single episode, 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 ICD-10: F32.0 06/06/2014 Active Encounter for immuni zation ICD-9: V04.81 ICD-10: Z23 02/19/2015 Active IRRITABLE COLON ICD-9: 564.1 12/04/2014 Active [...] Active Hypertension Unknown 03/01/2011 Active Need for chickenpox vaccination ICD-9: V05.4 02/25/2011 Active Need for shingles va ccine ICD-9: [...] Date Stop Date Sta tus Fill Instructions cefdinir 300 mg capsule RxNorm: 968035 1 Capsule(s) PO BID 11/23/2016 11/27/2016 Active cefdinir 300 mg capsule RxNorm: 821427 1 Capsule(s) PO BID 11/23/2016 11/22/2016 Inactive nystatin 100,000 uni t/mL oral suspension RxNorm: 509840 5 Milliliter(s) PO QI D 11/18/2016 11/27/2016 Ac tive azithromycin 250 mg tablet RxNorm: 981778 1 Tablet(s) PO UD 2 p ills on day #1 then one pill daily x 4 more days 11/18/2016 11/22/2016 Inactive Mobic 15 mg tablet RxNorm: 591890 1/2 TABLET(S) DAILY 10/28/2016 03/26/2017 Active citalopram 10 mg tablet RxNorm: 461292 TAKE 1 TABLET BY MOUTH EVERY DAY 10/07/2016 03/05/2017 Ac tive Patient requests 90 days supply mirtazapine 15 mg ta blet RxNorm: 262725 TAKE ONE TABLET BY MO UTH EVERY DAY 10/06/2016 09/30/2017 Ac tive mirtazapine 15 mg ta blet RxNorm: 484432 TAKE ONE TABLET BY MO UTH EVERY DAY 10/05/2016 10/05/2016 In active Patient requests 90 days supply amlodipine 10 mg tablet RxNorm: 268224 TAKE 1 TABLET BY MOUTH EVERY DAY 09/14/2016 09/08/2017 Ac tive clopidogrel 75 mg ta blet RxNorm: 748751 TAKE 1 TABLET BY MOUT H EVERY DAY 06/28/2016 12/24/2016 Ac tive lisinopril 20 mg tablet RxNorm: 137558 TAKE 1 TABLET DAILY 05/31/2016 11/26/2016 Active donepezil 10 mg tablet RxNorm: 936207 TAKE 1 TABLET BY MOUTH ONCE DAILY 05/11/2016 11/06/2016 In active donepezil 10 mg tablet RxNorm: 233569 TAKE 1 TABLET BY MOUTH ONCE DAILY 04/26/2016 05/10/2016 In active Mobic 15 mg tablet RxNorm: 378300 1/2 Tablet(s) daily 04/19/2016 10/15/2016 Inactive citalopram 10 mg tablet RxNorm: 575326 TAKE 1 TABLET BY MOUTH EVERY DAY 04/06/2016 04/25/2016 In active cetirizine 10 mg tablet RxNorm: 0807833 Tablet(s) 1 TABLET(S) PO DAILY TO TAKE I NSTEAD OF THE CLARITIN 03/30/2016 02/22/2017 Active amlodipine 10 mg tablet RxNorm: 258009 TAKE 1 TABLET BY MOUTH EVERY DAY 03/08/2016 03/02/2017 Ac tive amlodipine 10 mg tablet RxNorm: 605758 1 Tablet(s) PO daily TAKE 1 TABLET BY MO UTH ONCE DAILY 03/03/2016 03/07/2016 Inactive Requip 0.25 mg tablet RxNorm: 650673 1 Tablet(s) PO BID 03/03/2016 09/13/2016 Inactive Mobic 15 mg tablet RxNorm: 412876 1 Tablet(s) daily not refilled on a 02/23/2016 04/18/2016 In active cetirizine 10 mg tablet RxNorm: 1987663 1 TABLET(S) PO DAILY TO TAKE INSTEAD OF THE CLARITIN 02/19/2016 03/19/2016 Inactive lisinopril 20 mg tablet RxNorm: 625584 TAKE 1 TABLET DAILY 02/18/2016 05/17/2016 Inactive Namenda 10 mg tablet RxNorm: 847660 Tablet(s) TAKE 1 TABLET BY MOUTH TWICE D AILY. 02/17/2016 No Stop Date Active lisinopril 20 mg tablet RxNorm: 256646 TAKE 1 TABLET DAILY 01/23/2016 06/20/2016 Inactive cetirizine 10 mg tablet RxNorm: 4561026 1 Tablet(s) PO daily to take instead of the claritin 01/21/2016 02/18/2016 Inactive amlodipine 10 mg tablet RxNorm: 386272 1 Tablet(s) PO daily TAKE 1 TABLET BY MO UTH ONCE DAILY 12/02/2015 03/02/2016 Inactive clopidogrel 75 mg ta blet RxNorm: 995763 TAKE 1 TABLET BY MOUT H EVERY DAY 11/25/2015 05/22/2016 In active Mobic 15 mg tablet RxNorm: 669597 TAKE(1/2) TABLET DAILY. 11/17/2015 02/22/2016 Inactive lisinopril 20 mg tablet RxNorm: 150680 TAKE 1 TABLET DAILY 11/17/2015 01/15/2016 Inactive Mobic 15 mg tablet RxNorm: 429660 1/2 Tablet(s) PO daily TAKE (1/2) TABLET DAILY. 11/12/2015 11/16/2015 Inactive citalopram 10 mg tablet RxNorm: 583372 TAKE 1 TABLET BY MOUTH EVERY DAY 10/27/2015 04/05/2016 In active Requip 0.25 mg tablet RxNorm: 777109 1 Tablet(s) PO BID 10/15/2015 02/11/2016 Inactive Requip 0.25 mg tablet RxNorm: 691409 1 Tablet(s) PO BID 10/15/2015 10/14/2015 Inactive mirtazapine 15 mg ta blet RxNorm: 151162 1 Tablet(s) PO daily 09/08/2015 10/01/2016 Inactive donepezil 10 mg tablet RxNorm: 945021 TAKE 1 TABLET DAILY 09/01/2015 04/25/2016 Inactive amlodipine 10 mg tablet RxNorm: 658191 1 Tablet(s) PO daily TAKE 1 TABLET BY MO UTH ONCE DAILY 08/18/2015 12/01/2015 Inactive clopidogrel 75 mg ta blet RxNorm: 730037 1 Tablet(s) PO daily TAKE 1 TABLET DAILY 05/20/2015 11/24/2015 In active Mobic 15 mg tablet RxNorm: 416143 Tablet(s) TAKE (1/2) TABLET DAILY. 04/23/2015 10/19/2015 In active lisinopril 20 mg tablet RxNorm: 907130 TAKE 1 TABLET DAILY 04/22/2015 11/16/2015 Inactive Mobic 15 mg tablet RxNorm: 050754 TAKE (1/2) TABLET DAILY. 04/22/2015 04/22/2015 Inactive sulfamethoxazole 400 mg-trimethoprim 80 mg tablet RxNorm: 744240 1/2 Tablet(s) PO nancy y 03/11/2015 04/09/2015 Inactive Vesicare 5 mg tablet RxNorm: 530062 1 Tablet(s) PO 03/11/2015 05/09/2015 Inactive Protonix 40 mg table t,delayed release RxNorm: 120998 1 Tablet(s) PO BID 03/05/2015 09/30/2015 In active ok to change from [address] Archana rivera clopidogrel 75 mg ta blet RxNorm: 300764 1 Tablet(s) PO daily TAKE 1 TABLET DAILY 02/20/2015 05/19/2015 In active Namenda 10 mg tablet RxNorm: 808099 Tablet(s) TAKE 1 TABLET BY MOUTH TWICE D AILY. 01/22/2015 02/16/2016 Inactive amlodipine 10 mg tablet RxNorm: 681540 TAKE 1 TABLET BY MOUTH ONCE DAILY 01/14/2015 08/17/2015 In active donepezil 10 mg tablet RxNorm: 864710 TAKE 1 TABLET DAILY 01/06/2015 08/31/2015 Inactive Levsin 0.125 mg tablet RxNorm: 2755857 1 Tablet(s) PO QID as needed FOR ABD REJI N 11/05/2014 12/03/2014 In active Mobic 15 mg tablet RxNorm: 322992 1/2 Tablet(s) daily TAKE (1/2) TABLET DA MOIZ. 10/01/2014 04/21/2015 Inactive ciprofloxacin 500 mg tablet RxNorm: 107686 1 Tablet(s) PO BID 09/27/2014 10/01/2014 Inactive Flagyl 500 mg tablet RxNorm: 640602 1 Tablet(s) PO TID 09/27/2014 10/03/2014 Inactive take probiotic BID donepezil 10 mg tablet RxNorm: 243287 1/2 Tablet(s) PO BID 09/24/2014 01/05/2015 Inactive lisinopril 20 mg tablet RxNorm: 379459 TAKE 1 TABLET DAILY 09/05/2014 04/21/2015 Inactive amlodipine 10 mg tablet RxNorm: 293404 1 Tablet(s) PO daily 09/02/2014 12/30/2014 Inactive mirtazapine 15 mg ta blet RxNorm: 483332 1 Tablet(s) PO daily 08/28/2014 09/07/2015 Inactive donepezil 10 mg tablet RxNorm: 818330 1 Tablet(s) PO daily 08/28/2014 09/23/2014 Inactive citalopram 10 mg tablet RxNorm: 687867 1 Tablet(s) PO daily 08/28/2014 03/25/2015 Inactive citalopram 10 mg tablet RxNorm: 115694 1 Tablet(s) PO daily 08/07/2014 08/27/2014 Inactive citalopram 10 mg tablet RxNorm: 109984 1 Tablet(s) PO daily 08/07/2014 08/06/2014 Inactive Flagyl 500 mg tablet RxNorm: 775761 1 Tablet(s) PO TID 08/02/2014 08/01/2014 Inactive take probiotic BID Flagyl 500 mg tablet RxNorm: 444064 1 Tablet(s) PO TID 08/02/2014 08/08/2014 Inactive take probiotic BID tamsulosin ER 0.4 mg capsule,extended release 24 hr RxNorm: 427498 1 Capsule(s) PO QHS 06/06/2014 03/10/2015 Inactive TAKE AT BEDTIME escitalopram 5 mg ta blet RxNorm: 039851 1 Tablet(s) PO QPM 06/06/2014 08/06/2014 Inactive doxycycline hyclate 100 mg tablet RxNorm: 831453 1 Tablet(s) PO BID 05/31/2014 05/30/2014 Inactive doxycycline hyclate 100 mg tablet RxNorm: 588167 1 Tablet(s) PO BID 05/31/2014 06/06/2014 Inactive please deliver if not picked by 3pm Aricept 5 mg tablet RxNorm: 045830 1 Tablet(s) PO BID 05/29/2014 08/27/2014 Inactive losartan 50 mg tablet RxNorm: 990338 1/2 Tablet(s) PO daily 05/29/2014 12/28/2015 Inactive clopidogrel 75 mg ta blet RxNorm: 184531 1 Tablet(s) PO daily 05/27/2014 05/26/2014 Inactive Mobic 15 mg tablet RxNorm: 524944 TAKE (1/2) TABLET DAILY. 05/27/2014 09/30/2014 Inactive clopidogrel 75 mg ta blet RxNorm: 979323 TAKE 1 TABLET DAILY 05/27/2014 02/19/2015 Inactive Mobic 15 mg tablet RxNorm: 020760 1/2 Tablet(s) PO daily TAKE (1/2) TABLET DAILY. 05/27/2014 05/26/2014 Inactive prednisone 20 mg tablet RxNorm: 345068 1 Tablet(s) PO BID 05/21/2014 05/25/2014 Inactive albuterol sulfate 2. 5 mg/0.5 mL solution for nebulization RxNorm: 902166 1 inhale INH Q4H as needed 05/21/2014 09/01/2015 Inactive prednisone 20 mg tablet RxNorm: 918855 1 Tablet(s) PO BID 05/21/2014 05/20/2014 Inactive cefdinir 300 mg capsule RxNorm: 516243 1 Capsule(s) PO BID 05/20/2014 05/26/2014 Inactive Zithromax Z-Dequan 250 mg tablet RxNorm: 831757 1 Tablet(s) PO UD 05/20/2014 05/24/2014 Inactive zpack lorazepam 0.5 mg tablet RxNorm: 535256 1/2 to 1 Tablet(s) PO Q8 PRN as needed 04/30/2014 06/05/2014 In active Namenda 10 mg tablet RxNorm: 598472 TAKE 1 TABLET BY MOUTH TWICE DAILY. 04/15/2014 01/21/2015 In active Namenda 10 mg tablet RxNorm: 664155 1 Tablet(s) PO BID 04/15/2014 04/14/2014 Inactive losartan 50 mg tablet RxNorm: 529261 1 Tablet(s) PO daily 03/25/2014 05/28/2014 Inactive Protonix 40 mg table t,delayed release RxNorm: 676477 1 Tablet(s) PO QPM 03/21/2014 06/18/2014 In active ok to change from [address] Archana rivera fluticasone 50 mcg/a ctuation nasal spray,suspension RxNorm: 185720 1 [place] NASAL BID 03/04/2014 09/29/2014 Inactive Protonix 20 mg table t,delayed release RxNorm: 687456 1 Tablet(s) PO QPM 02/08/2014 03/20/2014 In active fluticasone 50 mcg/a ctuation nasal spray,suspension RxNorm: 569007 1 [place] NASAL BID 01/30/2014 03/03/2014 Inactive fluticasone 50 mcg/a ctuation nasal spray,suspension RxNorm: 024697 1 [place] NASAL BID 12/24/2013 01/29/2014 Inactive fluticasone 50 mcg/a ctuation nasal spray,suspension RxNorm: 931361 1 [place] NASAL BID 11/20/2013 12/23/2013 Inactive doxycycline hyclate 100 mg capsule RxNorm: 8910109 1 Capsule(s) PO BID 10/08/2013 10/17/2013 In active doxycycline hyclate 100 mg capsule RxNorm: 9422591 capsule oral 10/08/2013 10/29/2013 Inactive fluticasone 50 mcg/a ctuation nasal spray,suspension RxNorm: 879735 spray,suspension nasl 10/08/2013 11/19/2013 Inactive fluticasone 50 mcg/a ctuation nasal spray,suspension RxNorm: 013008 1 [place] NASAL BID Nasal spray- use twice daily, one spray per nostril twice daily, after 30 minutes, rinse out nose with saline spray. 10/08/2013 10/29/2013 Inactive mirtazapine 7.5 mg t ablet RxNorm: 502383 1/2 Tablet(s) PO daily 08/30/2013 08/27/2014 Inactive lorazepam 0.5 mg tablet RxNorm: 048780 1/2 Tablet(s) PO Q8 PRN 08/21/2013 04/29/2014 Inactive Aricept 5 mg tablet RxNorm: 490750 Tablet(s) PO TAKE 1 TABLET DAILY 08/21/2013 05/28/2014 In active Plavix 75 mg tablet RxNorm: 587588 Tablet(s) PO TAKE 1 TABLET DAILY 05/24/2013 12/04/2014 In active clopidogrel 75 mg ta blet RxNorm: 127064 tablet oral 05/24/2013 05/26/2014 Inactive Plavix 75 mg tablet RxNorm: 327579 1 Tablet(s) PO daily 05/23/2013 05/23/2013 Inactive meloxicam 15 mg tablet RxNorm: 939807 tablet oral 04/26/2013 03/25/2014 Inactive Mobic 15 mg tablet RxNorm: 822473 Tablet(s) PO TAKE (1/2) TABLET DAILY. 04/26/2013 05/26/2014 In active Mobic 15 mg tablet RxNorm: 139220 1/2 Tablet(s) PO daily 04/25/2013 04/25/2013 Inactive lisinopril 20 mg tablet RxNorm: 626092 1 Tablet(s) PO 04/04/2013 03/24/2014 Inactive finasteride 5 mg tablet RxNorm: 104554 tablet oral 03/22/2013 09/01/2015 Inactive lisinopril 10 mg tablet RxNorm: 036685 1 Tablet(s) PO daily 02/14/2013 04/03/2013 Inactive donepezil 5 mg tablet RxNorm: 493077 tablet oral 02/07/2013 12/24/2013 Inactive Influenza Virus Vacc ine 0.5 mL RxNorm: IM 02/06/2013 02/06/2013 Inactive Aricept 5 mg tablet RxNorm: 028773 1 Tablet(s) PO daily 02/06/2013 08/04/2013 Inactive tamsulosin ER 0.4 mg capsule,extended release 24 hr RxNorm: 215878 capsule,extended release 24hr oral 12/21/2012 06/05/2014 Inactive Plavix 75 mg tablet RxNorm: 454895 1 Tablet(s) PO daily 12/05/2012 05/03/2013 Inactive lorazepam 0.5 mg tablet RxNorm: 719558 1/2 Tablet(s) PO Q8 PRN 11/14/2012 08/20/2013 Inactive lisinopril 10 mg tablet RxNorm: 089918 1 Tablet(s) PO daily 08/08/2012 02/03/2013 Inactive Aricept 5 mg tablet RxNorm: 058690 1 Tablet(s) PO daily 08/08/2012 02/03/2013 Inactive Plavix 75 mg tablet RxNorm: 121923 1 Tablet(s) PO daily 07/04/2012 11/30/2012 Inactive Mobic 15 mg tablet RxNorm: 060647 1/2 Tablet(s) PO daily 03/20/2012 04/13/2013 Inactive Namenda 10 mg tablet RxNorm: 678386 1 Tablet(s) PO BID 02/22/2012 04/11/2014 Inactive lorazepam 0.5 mg tablet RxNorm: 878603 1/2 Tablet(s) PO Q8 PRN 02/02/2012 11/13/2012 Inactive lisinopril 10 mg tablet RxNorm: 473302 1 Tablet(s) PO daily 01/24/2012 07/21/2012 Inactive lisinopril 10 mg tablet RxNorm: 167154 1/2 Tablet(s) PO daily 12/20/2011 01/23/2012 Inactive Aricept 5 mg tablet RxNorm: 326677 1 Tablet(s) PO daily 07/14/2011 08/06/2012 Inactive Mobic 15 mg tablet RxNorm: 807125 1 Tablet(s) PO daily 07/14/2011 03/19/2012 Inactive Bentyl 10 mg Cap RxNorm: 738067 1 Capsule(s) PO daily one pill daily and every 6 hours if needed for bowel spasms. 06/23/2011 03/20/2012 Inactive amlodipine 5 mg Tab RxNorm: 903197 2 Tablet(s) PO daily 03/08/2011 12/08/2011 Inactive ZOSTAVAX 19,400 unit Sub-Q Soln RxNorm: 6547917 SQ 02/2502/25/2011 Inactive Pneumovax 23 25 mcg/ 0.5 mL Injection RxNorm: 942448 Milliliter(s) Inj 02/16/2011 02/16/2011 In active Influenza Virus Vacc ine 0.5 mL RxNorm: IM 02/09/2011 02/09/2011 Inactive Namenda 10 mg tablet RxNorm: 901904 1 Tablet(s) PO BID 02/01/2011 02/21/2012 Inactive dicyclomine 10 mg ca psule RxNorm: 586262 capsule oral 01/20/2011 10/29/2013 Inactive Namenda 5 mg tablet RxNorm: 824002 tablet oral 01/20/2011 12/24/2013 Inactive dicyclomine 20 mg ta blet RxNorm: 423549 tablet oral 01/15/2011 10/29/2013 Inactive Flagyl 500 mg Tab RxNorm: 648689 1 Tablet(s) PO TID 01/07/2011 01/06/2011 Inactive Cipro 500 mg Tab RxNorm: 405046 1 Tablet(s) PO BID 01/07/2011 06/23/2011 Inactive Cipro 500 mg Tab RxNorm: 084384 1 Tablet(s) PO BID 01/07/2011 01/06/2011 Inactive Flagyl 500 mg Tab RxNorm: 548258 1 Tablet(s) PO TID 01/07/2011 06/23/2011 Inactive metronidazole 500 mg tablet RxNorm: 395929 tablet oral 01/07/2011 12/24/2013 Inactive sulfamethoxazole 400 mg-trimethoprim 80 mg tablet RxNorm: 588211 tablet oral 12/24/2010 03/10/2015 In active mirtazapine 15 mg ta blet RxNorm: 229346 tablet oral 11/14/2010 12/24/2013 Inactive lisinopril 10 mg tablet RxNorm: 496830 tablet oral 11/14/2010 12/24/2013 Inactive doxycycline hyclate 100 mg tablet RxNorm: 631191 tablet oral 11/04/2010 12/24/2013 Inactive diphenoxylate-atropi ne 2.5 mg-0.025 mg tablet RxNorm: 3336619 tablet oral 11/03/2010 10/29/2013 In active ciprofloxacin 500 mg tablet RxNorm: 056270 tablet oral 11/01/2010 10/29/2013 Inactive aspirin 81 mg Cap, D elayed Release RxNorm: 279128 1 Capsule(s) PO daily No Start Date Active Allergy Relief (ceti rizine) oral RxNorm: 963838 oral No S tart Date Active Vitamin D 1,000 unit Tab RxNorm: 165230 1 Tablet(s) PO daily No Start Date Active Senior Vitamin Tab RxNorm: 1 Tablet(s) PO daily No Start Date Active sulfamethoxazole 500 mg Tab RxNorm: 772091 1/2 Tablet(s) PO daily No Start Date 12/24/2013 Inactive Plavix 75 mg Tab RxNorm: 463360 1 Tablet(s) PO daily No Start Date 01/26/2011 Inactive hydrocodone 5 mg-alexey taminophen 325 mg tablet RxNorm: 565880 1 Tablet(s) PO Q6 as needed No Start Date 06/05/2014 Inactive Proscar 5 mg Tab RxNorm: 780263 1 Tablet(s) PO daily No Start Date 09/01/2015 Inactive Plavix 75 mg tablet RxNorm: 915311 1 Tablet(s) PO daily No Start Date 07/03/2012 Inactive albuterol sulfate 2. 5 mg/0.5 mL solution for nebulization RxNorm: 406244 1 inhale INH Q4H as needed No Start Date 05/20/2014 Inactive amlodipine 5 mg Tab RxNorm: 271401 1 Tablet(s) PO daily No Start Date 03/07/2011 Inactive Namenda 5 mg Tab RxNorm: 202818 1 Tablet(s) PO daily No Start Date 06/23/2011 Inactive fluocinonide 0.05 % Ointment RxNorm: 547259 1 TOP BID PRN No Start Date 12/24/2013 Inactive amlodipine 5 mg tablet RxNorm: 531256 1 Tablet(s) PO daily No Start Date 09/01/2014 Inactive lisinopril Oral RxNorm: Oral No Start Date 12/08/2011 Inactive simvastatin 20 mg Tab RxNorm: 933239 1 Tablet(s) PO daily No Start Date 06/06/2014 Inactive Bentyl 20 mg Tab RxNorm: 877294 1 Tablet(s) PO Q6 PRN No Start Date 06/23/[address] Quintero Bentyl 10 mg Cap RxNorm: 839878 1 Capsule(s) PO BID No Start Date 06/22/2011 Inactive Plavix 75 mg Tab RxNorm: 120408 1 Tablet(s) PO every other day No Start Date 08/24/2011 Inactive lorazepam 0.5 mg tablet RxNorm: 471277 1/2 Tablet(s) PO Q8 PRN No Start Date 02/01/2012 Inactive lisinopril 10 mg tablet RxNorm: 764803 1 Tablet(s) PO daily No Start Date 12/19/2011 Inactive Flomax 0.4 mg 24 hr Cap RxNorm: 358056 1 Capsule(s) PO daily No Start Date 05/28/2014 Inactive Aricept 5 mg Tab RxNorm: 495461 1 Tablet(s) PO daily No Start Date 07/13/2011 Inactive Levsin 0.125 mg tablet RxNorm: 6890159 1 Tablet(s) PO QID as needed FOR ABD REJI N No Start Date 11/04/2014 Inactive mirtazapine 7.5 mg t ablet RxNorm: 921596 1/2 Tablet(s) PO daily No Start Date 08/29/2013 Inactive Mobic 15 mg Tab RxNorm: 136196 1 Tablet(s) PO daily No Start Date 07/13/2011 Inactive Medication Administered Medication Codes Instruc tions Start Date Status Influenza Virus Vaccine 0.5 mL RxNorm: 02/06/2013 No longer Active ZOSTAVAX 19,400 unit Sub-Q Soln RxNo rm: 9005287 02/25/2011 No longer A ctive Pneumovax 23 25 mcg/0.5 mL Injection RxNorm: 214372 Milliliter 02/16/2011 No longer Active Influenza Virus Vaccine 0.5 mL RxNorm: 02/09/2011 No longer Active Immunizations Vaccine Codes Date Status Pneumococcal (Adult) CVX: 133 05/06/2015 completed Influenza CVX: 141 02/19 completed Influenza CVX: 141 03/26 completed Influenza CVX: 141 02/06 completed Influenza CVX: 141 02/20 completed DTaP CVX: 20 02/27/2011 completed Pneumococcal (Adult) CVX: 33 02/16/2011 completed Influenza CVX: 141 02/09 completed Pneumococcal (Adult) Unknown 02/05/2009 completed Pneumococcal (Adult) Unknown 02/05/2009 completed Assessments Condition Codes Effectiv e Dates Cough ICD-10: R05 ICD-9: 786.2 11/18/2016 Bronchitis, not specified as acute or chronic ICD-10: J40 ICD-9: 490 11/18/2016 Candidal esophagitis ICD-10: B37.81 ICD-9: 112.84 11/18/2016 Essential (primary) hypertension ICD -10: I10 ICD-9: 401.9 08/23/2016 Mild cognitive impairment, so stated ICD-10: G31.84 ICD-9: 331.83 08/23/2016 Olecranon bursitis, right elbow ICD- 10: M70.21 ICD-9: 726.33 02/17/2016 Hypo-osmolality and hyponatremia ICD -10: E87.1 ICD-9: 276.1 02/05/2016 Generalized abdominal tenderness ICD -10: R10.817 ICD-9: 789.67 01/26/2016 Other allergic rhinitis ICD-10: J30. 89 ICD-9: 477.8 01/21/2016 Generalized anxiety disorder ICD-10: F41.1 ICD-9: 300.02 05/06/2015 Encounter for immunization ICD-10: Z 23 ICD-9: V03.9 05/06/2015 Mixed hyperlipidemia ICD-10: E78.2 ICD-9: 272.4 05/06/2015 Gastro-esophageal reflux disease without esophagitis ICD-10: K21.9 ICD-9: 530.81 03/05/2015 Major depressive disorder, single episode, 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 ICD-9: 311 03/05/2015 Encounter for immunization ICD-10: Z 23 ICD-9: V04.81 02/19/2015 ESSENTIAL HYPERTENSION ICD-9: 401.9 12/04/2014 MILD COGNITIVE [...] Visit Reason For Visit Effective Dates Notes sinus congestion 11/18/2016 hypertension 08/23/2016 hypertension 04/26/2016 [...] Observation Code Item Item Code Result Date Body Fluid Crystals Source RIGHT ELBOW 6 Body Fluid Crystals CRYSTALS, BODY FLUID 02/18/2016 Uric Acid Body Fluid 232079 URIC ACID-FLUID 4.3 mg/dL 02/18/2016 Metabolic Ord15 [...] Ord15 CALCIUM 9.1 mg/dL 02/05/2016 Comp Metabolic Fcc854 NA 129 mEq/L 10/08/2015 Comp Metabolic Pfm768 K 4.7 mEq/L 10/08/2015 Comp Metabolic Iip709 CL 98 mEq/L 10/08/2015 Comp Metabolic Hsr680 CO2 28.0 mEq/L 10/08/2015 Comp Metabolic Jah229 AN ION GAP 8 10/08/2015 Comp Metabolic Tmr493 GL UCOSE 84 mg/dL 10/08/2015 Comp Metabolic Quv951 Cr eat 1.3 mg/dL 10/08/2015 Comp Metabolic Gfh354 eG FR 56 ml/min/1.73m2 10/07 Comp Metabolic Bhz328 BUN 23 mg/dL 10/08/2015 Comp Metabolic Osw264 B/ C Ratio 17.8 Ratio 10/08/2015 Comp Metabolic Evx358 CA LCIUM 9.3 mg/dL 10/08/2015 Comp Metabolic Whb791 AL K PHOS 68 U/L 10/08/2015 Comp Metabolic Yfy036 T(SGOT) 24 U/L 10/08/2015 Comp Metabolic Rmy423 AL T(SGPT) 15 U/L 10/08/2015 Comp Metabolic Zdg205 BI LI T 0.5 mg/dL 10/08/2015 Comp Metabolic Fip957 AL BUMIN 4.0 g/dL 10/08/2015 Comp Metabolic Cdt631 TP RO 5.9 g/dL 10/08/2015 Comp Metabolic Naa023 GL OB 1.9 g/dL 10/08/2015 Comp Metabolic Lxp857 A/ G Ratio 2.1 Ratio 10/08/2015 Comp Metabolic Mea651 Os mo 262 mOsmo 10/08/2015 Lipid Ord30 [...] Ord30 C/HDL 2.3 Ratio 05/07/2015 Comp Metabolic Zzv814 NA 132 mEq/L 05/07/2015 Comp Metabolic Zzj502 K 4.4 mEq/L 05/07/2015 Comp Metabolic Lab463 CL 97 mEq/L 05/07/2015 Comp Metabolic Wsd449 CO2 30.0 mEq/L 05/07/2015 Comp Metabolic Tyf786 AN ION GAP 9 05/07/2015 Comp Metabolic Eta254 GL UCOSE 78 mg/dL 05/07/2015 Comp Metabolic Gfa317 Cr eat 1.2 mg/dL 05/07/2015 Comp Metabolic Yhj290 eG FR 60 ml/min/1.73m2 05/07 Comp Metabolic Kai078 BUN 25 mg/dL 05/07/2015 Comp Metabolic Tqg994 B/ C Ratio 20.3 Ratio 05/07/2015 Comp Metabolic Vzv208 CA LCIUM 9.6 mg/dL 05/07/2015 Comp Metabolic Pgh837 AL K PHOS 70 U/L 05/07/2015 Comp Metabolic Wcs599 T(SGOT) 27 U/L 05/07/2015 Comp Metabolic Pcx374 AL T(SGPT) 20 U/L 05/07/2015 Comp Metabolic Voi744 BI LI T 0.4 mg/dL 05/07/2015 Comp Metabolic Jun615 AL BUMIN 4.0 g/dL 05/07/2015 Comp Metabolic Dzm424 TP RO 5.8 g/dL 05/07/2015 Comp Metabolic Wxv584 GL OB 1.8 g/dL 05/07/2015 Comp Metabolic Vli042 A/ G Ratio 2.3 Ratio 05/07/2015 Comp Metabolic Mrk173 Os mo 268 mOsmo 05/07/2015 Cbc With [...] hTSH II 4.07 uIU/mL 05/07/2015 Comp Metabolic Ygh585 NA 134 mEq/L 12/10/2014 Comp Metabolic Moy229 K 4.8 mEq/L 12/10/2014 Comp Metabolic Zia522 CL 101 mEq/L 12/10/2014 Comp Metabolic Etx898 CO2 30.0 mEq/L 12/10/2014 Comp Metabolic Kxz315 AN ION GAP 8 12/10/2014 Comp Metabolic Ljd085 GL UCOSE 85 mg/dL 12/10/2014 Comp Metabolic Yrq270 Cr eat 1.2 mg/dL 12/10/2014 Comp Metabolic Qoz061 eG FR 65 ml/min/1.73m2 12/10 Comp Metabolic Hxz698 BUN 25 mg/dL 12/10/2014 Comp Metabolic Qua755 B/ C Ratio 21.7 Ratio 12/10/2014 Comp Metabolic Dqz300 CA LCIUM 9.5 mg/dL 12/10/2014 Comp Metabolic Scb423 AL K PHOS 76 U/L 12/10/2014 Comp Metabolic Axq442 T(SGOT) 27 U/L 12/10/2014 Comp Metabolic Tkl456 AL T(SGPT) 18 U/L 12/10/2014 Comp Metabolic Qpb113 BI LI T 0.5 mg/dL 12/10/2014 Comp Metabolic Oyr639 AL BUMIN 4.1 g/dL 12/10/2014 Comp Metabolic Oyt679 TP RO 5.7 g/dL 12/10/2014 Comp Metabolic Afi400 GL OB 1.6 g/dL 12/10/2014 Comp Metabolic Jbk175 A/ G Ratio 2.6 Ratio 12/10/2014 Comp Metabolic Snu294 Os mo 272 mOsmo 12/10/2014 B12 Xwz520 B12 1011.00 pg/ml 12/10/2014 Lipid Ord30 CHOL [...] Differential Ord2 RDW 14.3 % 12/10/2014 CBC [id number] WBC 4.1 10e9/L 02/19/2013 CBC [id number] RBC 4.39 10e12/L 02/19/2013 CBC 8426641 HGB 14.1 g/dL 02/19/2013 CBC 0097746 HCT DET 41.0 % 02/19/2013 CBC 9029131 MCV 93.4 fL 02/19/2013 CBC 2497410 MCH 32.1 pg 02/19/2013 CBC 4084583 MCHC 34.4 g/dL 02/19/2013 CBC 1549966 PLT 151 10e9/L 02/19/2013 CBC 7525979 MPV 11.8 fL 02/19/2013 CBC 9210361 YOVANNY % 63.2 % 02/19/2013 CBC 6850412 LY % 22.9 % 02/19/2013 CBC 1271783 MON % 11.5 % 02/19/2013 CBC 7218867 EOS % 2.2 % 02/19/2013 CBC 4588746 BASO % 0.2 % 02/19/2013 CBC 7737614 RDW 13.8 % 02/19/2013 CBC 2477898 ABS YOVANNY 2.59 10e9/L 02/19/2013 CBC 8207056 ABS LYMPH 0.94 10e9/L 02/19/2013 CBC 7817876 ABS MONO 0.47 10e9/L 02/19/2013 CBC 6111628 ABS EOS 0.09 10e9/L 02/19/2013 CBC 0623818 ABS BASO 0.01 10e9/L 02/19/2013 CBC 3106488 RDW-SD 46.0 fL 02/19/2013 TSH 2394288 TSH 2.094 uIU/ML 02/19/2013 FREE T4 0180702 FREE T4 1.18 NG/DL 02/19/2013 GFR CALC 7836454 GFR AA >60 ML/MIN 02/19/2013 GFR CALC 6372927 GFR NON -AA >60 ML/MIN 02/19/2013 CHEM 14 5242435 AST 30 U/L 02/19/2013 CHEM 14 7503668 ALT 19 IU/L 02/19/2013 CHEM 14 1963808 BUN 21 MG/DL 02/19/2013 CHEM 14 4376106 ALBUMIN 4.4 GM/DL 02/19/2013 CHEM 14 5091836 CHLORIDE 94 MMOL/L 02/19/2013 CHEM 14 7566128 BILI TOT 0.5 MG/DL 02/19/2013 CHEM 14 6194957 ALK PHOS 75 U/L 02/19/2013 CHEM 14 8915540 SODIUM 133 MMOL/L 02/19/2013 CHEM 14 6321027 CREATINI NE 1.07 MG/DL 02/19/2013 CHEM 14 0500442 CALCIUM 9.6 MG/DL 02/19/2013 CHEM 14 5600204 POTASSIUM 4.6 MMOL/L 02/19/2013 CHEM 14 3340522 PROT TOT 6.1 GM/DL 02/19/2013 CHEM 14 0466568 GLUCOSE 94 MG/DL 02/19/2013 CHEM 14 1488906 BICARB 31 MMOL/L 02/19/2013 CHEM 14 6968069 ANION GAP 8 MEQ/L 02/19/2013 UA 17065 Specific [place] 1.015 DateTime(Free Text in Apr ) UA 99560 PH 6 DateTime(Free Text in Aprima ) UA 02613 GLUCOSE neg DateTime(Free Text in Aprima ) UA 17359 Protein neg DateTime(Free Text in Aprima ) UA 73126 Blood neg DateTime(Free Text in Aprima ) UA 22742 Bilirubin neg DateTime(Free Text in Aprima ) UA 67027 Ketones neg DateTime(Free Text in Aprima ) UA 02171 Urobilinogen neg DateTime(Free Text in Aprima ) UA 24923 Nitrite neg DateTime(Free Text in Aprima ) UA 53727 Leukocytes neg DateTime(Free Text in Augima ) Review of Systems System Result Effective Dates Constitutional No chills 11/18/2016 Constitutional No diaphoresis [...] Neurologic No pain, back 07/26/2014 Psychiatric anxiety 03/2 Psychiatric depression 0 07/26/2014 Constitutional recent illness [...] sounds 10/08/2013 None Full Exam - General 1995 Musculoskeletal [...] rate 12/09/2011 None Full Exam - General 1995 Cardiovascular auscultation of heart Overall: regular rate 12/09/2011 None Full Exam - General 1994 Cardiovascular auscultation of heart Overall: normal heart sounds 12/09/2011 None Full Exam - General 1994 Abdomen abdominal exam Overall: no tenderness 12/09/2011 None Full Exam - General 1995 Abdomen [...] benign 08/25/2011 None Full Exam - General 1995 Ears/Nose/Throat otoscopic exam Overall: tympanic membranes clear 08/25/2011 None Full Exam - General 1995 Ears/Nose/Throat otoscopic exam Overall: external auditory canals clear 08/25/2011 None Full Exam - General 1994 Constitutional general appearance Overall: well nourished 06/23/2011 None Full Exam - General 1995 Constitutional general appearance Overall: well developed 06/23/2011 [...] aphasia 04/19/2011 None Full Exam - General 1995 Constitutional general appearance Overall: well nourished 03/08/2011 None Full Exam - General 1995 Constitutional general appearance Overall: well developed 03/08/2011 None Full Exam - General 1995 Constitutional [...] sounds 01/26/2011 None Full Exam - General 1995 Cardiovascular auscultation of heart Overall: no murmurs [...] normal 01/15/2011 None Full Exam - General 1995 Eyes pupils and irises Overall: pupils equal, [...] affect 01/06/2011 None Procedures Procedure Codes Date DRAIN/INJECT JOINT/B URSA CPT-4: 22578Syjkzwg 02/17/2016 IMMUNIZATION ADMIN CPT-4: 05130Cabpawq 05/06/2015 PNEUMOCOCCAL VACC 13 TIFFANIE IM Formatting Model/CDA Sections, Assigned to/Celia Minaya SNOMED CT: 59876653 CPT-4: 20956Zgpdozc 05/06/2015 ADMIN INFLUENZA VIRU S VAC CPT-4: I4311Ixqwuaj 02/19/2015 FLU VACC 4 TIFFANIE 3 YRS PLUS IM Formatting Model/CDA Sections, Assigned to SNOMED CT: 83633229 CPT-4: 70493Bfmycgn 02/19/2015 URINALYSIS NONAUTO W /O SCOPE CPT-4: 48093Bilqrov 05/23/2014 ADMIN INFLUENZA VIRU S VAC CPT-4: Y9597Bvuqjoh 03/26/2014 FLU VAC NO PRSV 4 VA L 3 YRS+ Assigned to/Celia Minaya CPT-4: 87096Idqetpx 03/26/2014 PRESCRIP TRANSMIT A ERX SY CPT-4: L3964Jqrbibo 04/04/2013 ROUTINE VENIPUNCTURE CPT-4: 49034Ilafjxp 02/19/2013 ADMIN INFLUENZA VIRU S VAC CPT-4: V7331Nhwlkjb 02/06/2013 FLULAVAL VACC, 3 YRS & >, IM CPT-4: D1339Ynmmcjf 02/06/2013 13192 EST. PATIENT, LEVEL IV CPT-4: 23812Spiluub 06/19/2012 PRESCRIP TRANSMIT A ERX SY CPT-4: Z9815Pmasdrz 06/19/2012 PRESCRIP TRANSMIT A ERX SY CPT-4: M1879Cwbmyjy 03/20/2012 PRESCRIP TRANSMIT A ERX SY CPT-4: P5587Hssyovp 06/23/2011 IMMUNIZATION ADMIN CPT-4: 96911Scirxtt 02/25/2011 ZOSTER VACC SC (Maria E stephens, patient supplied vaccine) CPT-4: 28238ITWosefsd 02/25/2011 ADMIN PNEUMOCOCCAL V ACCINE SNOMED CT: 67454167 CPT-4: J2958Rghfrnp 02/16/2011 Pneumococcal Polysac charide Vaccine, 23-Valent, Ad CPT-4: 51469Brnggea 02/16/2011 ADMIN INFLUENZA VIRU S VAC CPT-4: X8737Awbniny 02/09/2011 FLULAVAL VACC, 3 YRS & >, IM CPT-4: T5886Tpqljik 02/09/2011 PRESCRIP TRANSMIT A ERX SY CPT-4: T7264Fjciqwr 02/01/2011 URINALYSIS NONAUTO W /O SCOPE CPT-4: 28735Zohkojn 01/27/2011 Vital Signs Date Vital 11/18/2016 Blood Pressure 1: 120/60 Code: 8480-6 BMI: 20.7 Code: 83682-2 Heart Rate 1: 74 bpm Height: 5'9" SpO2: 95% Weight: 140 lbs 08/23/2016 Blood Pressure 1: 118/68 Code: 8480-6 BMI: 20.8 Code: 32409-3 Heart Rate 1: 54 bpm Height: 5'9" SpO2: 97% Weight: 141 lbs 04/26/2016 Blood Pressure 1: 108/64 Code: 8480-6 BMI: 21.0 Code: 73295-8 Heart Rate 1: 62 bpm Height: 5'9" SpO2: 95% Weight: 142 lbs 02/17/2016 Blood Pressure 1: 138/80 Code: 8480-6 BMI: 20.2 Code: 36824-5 Heart Rate 1: 76 bpm Height: 5'9" SpO2: 97% Weight: 137 lbs 02/09/2016 Blood Pressure 1: 140/76 Code: 8480-6 BMI: 20.2 Code: 77562-8 Heart Rate 1: 72 bpm Height: 5'9" SpO2: 96% Weight: 137 lbs 02/03/2016 Blood Pressure 1: 136/80 Code: 8480-6 BMI: 20.7 Code: 44324-6 Heart Rate 1: 86 bpm Height: 5'9" SpO2: 96% Weight: 140 lbs 01/26/2016 Blood Pressure 1: 144/78 Code: 8480-6 BMI: 20.7 Code: 79598-2 Heart Rate 1: 73 bpm Height: 5'9" SpO2: 97% Temperature: 37.0 (C ) / 98.6 (F) Weight: 140 lbs 01/21/2016 Blood Pressure 1: 116/62 Code: 8480-6 BMI: 20.4 Code: 82666-5 Heart Rate 1: 66 bpm Height: 5'9" SpO2: 97% Weight: 138 lbs 12/29/2015 Blood Pressure 1: 130/74 Code: 8480-6 BMI: 20.4 Code: 79203-1 Heart Rate 1: 51 bpm Height: 5'9" SpO2: 98% Weight: 138 lbs 09/02/2015 Blood Pressure 1: 126/60 Code: 8480-6 BMI: 22.3 Code: 41557-4 Heart Rate 1: 55 bpm Height: 5'9" SpO2: 96% Weight: 151 lbs 05/06/2015 Blood Pressure 1: 132/72 Code: 8480-6 BMI: 21.0 Code: 67392-7 Heart Rate 1: 63 bpm Height: 5'9" SpO2: 97% Weight: 142 lbs 03/05/2015 Blood Pressure 1: 130/68 Code: 8480-6 BMI: 21.0 Code: 18943-8 Heart Rate 1: 61 bpm Height: 5'9" SpO2: 96% Weight: 142 lbs 12/04/2014 Blood Pressure 1: 122/64 Code: 8480-6 BMI: 21.3 Code: 13193-0 Heart Rate 1: 72 bpm Height: 5'9" Weight: 144 lbs 09/24/2014 Blood Pressure 1: 142/80 Code: 8480-6 BMI: 20.4 Code: 27341-3 Heart Rate 1: 80 bpm Height: 5'9" Weight: 138 lbs 09/09/2014 Blood Pressure 1: 122/74 Code: 8480-6 BMI: 20.5 Code: 54809-6 Heart Rate 1: 64 bpm Height: 5'9" Weight: 139 lbs 07/26/2014 Blood Pressure 1: 136/82 Code: 8480-6 BMI: 20.4 Code: 58899-6 Heart Rate 1: 87 bpm Height: 5'9" SpO2: 92% Weight: 138 lbs 07/10/2014 Blood Pressure 1: 130/74 Code: 8480-6 BMI: 21.1 Code: 74616-9 Heart Rate 1: 64 bpm Height: 5'9" Weight: 143 lbs 06/06/2014 Blood Pressure 1: 142/88 Code: 8480-6 BMI: 20.4 Code: 86130-8 Heart Rate 1: 68 bpm Height: 5'9" Weight: 138 lbs 05/29/2014 Blood Pressure 1: 108/72 Code: 8480-6 BMI: 20.5 Code: 33786-4 Heart Rate 1: 60 bpm Height: 5'9" Weight: 139 lbs 05/20/2014 Blood Pressure 1: 140/72 Code: 8480-6 BMI: 21.6 Code: 49478-2 Heart Rate 1: 60 bpm Height: 5'9" SpO2: 98% Temperature: 36.2 (C ) / 97.2 (F) Weight: 146 lbs 03/25/2014 Blood Pressure 1: 128/60 Code: 8480-6 BMI: 21.4 Code: 67754-7 Heart Rate 1: 62 bpm Height: 5'9" Weight: 145 lbs 02/08/2014 Blood Pressure 1: 136/82 Code: 8480-6 BMI: 21.3 Code: 32572-5 Heart Rate 1: 68 bpm Height: 5'9" Weight: 144 lbs 12/24/2013 Blood Pressure 1: 122/76 Code: 8480-6 BMI: 21.6 Code: 57734-3 Heart Rate 1: 58 bpm Height: 5'9" Weight: 146 lbs 11/20/2013 Blood Pressure 1: 112/62 Code: 8480-6 BMI: 20.7 Code: 19512-6 Heart Rate 1: 56 bpm Height: 5'9" Weight: 140 lbs 10/30/2013 Blood Pressure 1: 130/68 Code: 8480-6 BMI: 20.1 Code: 10823-6 Heart Rate 1: 68 bpm Height: 5'9" SpO2: 96% Weight: 136 lbs 10/08/2013 Blood Pressure 1: 128/72 Code: 8480-6 BMI: 20.8 Code: 32653-7 Heart Rate 1: 60 bpm Height: 5'9" Temperature: 36.6 (C ) / 97.8 (F) Weight: 141 lbs 06/18/2013 Blood Pressure 1: 124/78 Code: 8480-6 BMI: 20.8 Code: 58539-3 Heart Rate 1: 64 bpm Height: 5'9" Weight: 141 lbs 04/04/2013 Blood Pressure 1: 138/60 Code: 8480-6 BMI: 20.8 Code: 98750-1 Heart Rate 1: 56 bpm Height: 5'9" Weight: 141 lbs 02/19/2013 Blood Pressure 1: 152/74 Code: 8480-6 BMI: 21.0 Code: 06507-0 Heart Rate 1: 60 bpm Height: 5'9" Weight: 142 lbs 10/16/2012 Blood Pressure 1: 122/70 Code: 8480-6 BMI: 20.8 Code: 16369-1 Heart Rate 1: 64 bpm Height: 5'9" Weight: 141 lbs 06/19/2012 Blood Pressure 1: 120/72 Code: 8480-6 BMI: 21.1 Code: 87217-9 Heart Rate 1: 60 bpm Height: 5'9" Weight: 143 lbs 03/20/2012 Blood Pressure 1: 114/76 Code: 8480-6 Heart Rate 1: 60 bpm Respiratory Rate: 16 bpm Weight: 143 lbs 01/24/2012 Blood Pressure 1: 134/70 Code: 8480-6 Heart Rate 1: 64 bpm Weight: 143 lbs 12/20/2011 Blood Pressure 1: 98/72 Code: 8480-6 BMI: 21.1 Code: 55398-4 Heart Rate 1: 60 bpm Height: 5'9" Respiratory Rate: 16 bpm Weight: 143 lbs 12/09/2011 Blood Pressure 1: 110/60 Code: 8480-6 Heart Rate 1: 66 bpm SpO2: 98% Weight: 141 lbs 08/25/2011 Blood Pressure 1: 112/70 Code: 8480-6 BMI: 20.8 Code: 63207-8 Heart Rate 1: 54 bpm Height: 5'9" Respiratory Rate: 16 bpm Weight: 141 lbs 06/23/2011 Blood Pressure 1: 126/64 Code: 8480-6 Heart Rate 1: 60 bpm Respiratory Rate: 16 bpm Weight: 142 lbs 04/19/2011 Blood Pressure 1: 124/64 Code: 8480-6 BMI: 21.1 Code: 46463-2 Heart Rate 1: 64 bpm Height: 5'9" Respiratory Rate: 16 bpm Weight: 143 lbs 03/23/2011 Blood Pressure 1: 137/71 Code: 8480-6 Heart Rate 1: 57 bpm 03/08/2011 Blood Pressure 1: 154/70 Code: 8480-6 BMI: 20.8 Code: 70209-2 Heart Rate 1: 60 bpm Height: 5'9" Respiratory Rate: 16 bpm Weight: 141 lbs 03/01/2011 Blood Pressure 1: 178/80 Code: 8480-6 Blood Pressure 2: 168/70 Code: 8480-6 BMI: 24.1 Code: 47820-0 Heart Rate 1: 60 bpm Height: 5'9" Respiratory Rate: 16 bpm Weight: 163 lbs 02/01/2011 Blood Pressure 1: 162/84 Code: 8480-6 Heart Rate 1: 60 bpm Respiratory Rate: 16 bpm Weight: 144 lbs 01/27/2011 Blood Pressure 1: 138/54 Code: 8480-6 BMI: 21.1 Code: 73136-0 Heart Rate 1: 68 bpm Height: 5'9" Respiratory Rate: 16 bpm Weight: 143 lbs 01/26/2011 Blood Pressure 1: 148/86 Code: 8480-6 BMI: 21.3 Code: 83843-7 Heart Rate 1: 74 bpm Height: 5'9" Weight: 144 lbs 01/15/2011 Blood Pressure 1: 136/76 Code: 8480-6 BMI: 20.5 Code: 96919-1 Heart Rate 1: 70 bpm Height: 5'10" Weight: 141 lbs 01/06/2011 Blood Pressure 1: 148/72 Code: 8480-6 BMI: 20.2 Code: 23617-4 Heart Rate 1: 72 bpm Height: 5'10" Respiratory Rate: 12 bpm Weight: 139 lbs Functional Status No Functional Status data History of Present Illness Symptom Name Status Resu lt Effective Date Notes sinus congestion Quality intermittent 11/18/2016 None sinus [...] contacts 05/20/2014 None cough Location in the [facility] 03/25/2014 None cough Quality hacking 03/25/2014 None [...] Encounters Encounter Performer Loca tion Codes Date ([id number]) 99244 EST. P BREN, LEVEL III Diagnosis: Cough[ICD10: R05] Diagnosis: Bronchitis, not specified as acute or chronic[ICD10: J40] Diagnosis: Candidal esophagitis[ICD10: B37.81] Ale Carlos MD, [facility] CPT- 4: 94391 11/18/2016 ([id number]) 97370 EST. P BREN, LEVEL IV Diagnosis: Essential (primary) hypertension[ICD10: I10] Diagnosis: Mild cognitive impairment, so stated[ICD10: G31.84] Ale Carlos MD, [facility] CPT-4: 59669 08/23/2016 ([id number]) 52313 EST. P ATIENT, LEVEL III Diagnosis: Essential (primary) hypertension[ICD10: I10] Ale Carlos MD, [facility] CPT-4: 94823 04/26/2016 ([id number]) Miscellaneou s no charge Diagnosis: Olecranon bursitis, right elbow[ICD10: M70.21] Nelly Carlos MD, [facility] CPT-4: 56429 02/09/2016 ([id number]) 03598 EST. P ATIENT, LEVEL III Diagnosis: Olecranon bursitis, right elbow[ICD10: M70.21] Nelly Carlos MD, [facility] CPT-4: 50556 02/03/2016 ([id number]) 32353 EST. P ATIENT, LEVEL III Diagnosis: Generalized abdominal tenderness[ICD10: R10.817] Ale Carlos MD, [facility] CPT-4: 22639 01/26/2016 39910 EST. PATIENT, LEVEL IV Diagnosis: Other allergic rhinitis[ICD10: J30.89] Ruchi Carlos MD, [facility] CPT-4: 60130 01/21/2016 ([id number]) 30218 EST. P ATIENT, LEVEL IV Diagnosis: Essential (primary) hypertension[ICD10: I10] Diagnosis: Hypo-osmolality and hyponatremia[ICD10: E87.1] Ale Carlos MD, [facility] CPT-4: 22518 12/29/2015 ([id number]) 08927 EST. P ATIENT, LEVEL IV Diagnosis: Essential (primary) hypertension[ICD10: I10] Diagnosis: Mild cognitive impairment, so stated[ICD10: G31.84] Ale Carlos MD, [facility] CPT-4: 17626 09/02/2015 ([id number]) 16324 EST. P ATIENT, LEVEL IV Diagnosis: Mixed hyperlipidemia[ICD10: E78.2] Diagnosis: Generalized anxiety disorder[ICD10: F41.1] Diagnosis: Mild cognitive impairment, so stated[ICD10: G31.84] Diagnosis: Essential (primary) hypertension[ICD10: I10] Diagnosis: Encounter for immunization[ICD10: Z23] Ale Carlos MD, [facility] CPT-4: 80013 05/06/2015 ([id number]) 14923 EST. 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 P ATIENT, LEVEL IV Diagnosis: ESSENTIAL HYPERTENSION[ICD9: 401.9] Diagnosis: GENERALIZED ANXIETY DISEASE[ICD9: 300.02] Diagnosis: MILD COGNITIVE IMPAIREMT[ICD9: 331.83] Diagnosis: IRRITABLE COLON[ICD9: 564.1] Ale Carlos MD, [facility] CPT-4: 17600 12/04/2014 ([id number]) 09397 EST. P ATIENT, LEVEL IV Diagnosis: Abdominal pain[ICD9: 789.00] Diagnosis: GENERALIZED ANXIETY DISEASE[ICD9: 300.02] Diagnosis: Hyponatremia[ICD9: 276.1] Diagnosis: ESSENTIAL HYPERTENSION[ICD9: 401.9] Nelly Carlos MD, [facility] CPT-4: 78586 09/24/2014 ([id number]) 50063 EST. P ATIENT, LEVEL IV Diagnosis: ESSENTIAL HYPERTENSION[ICD9: 401.9] Diagnosis: Osteoarthritis[ICD9: 715.90] Diagnosis: Mild cognitive impairment with memory loss[ICD9: 331.83] Ale Carlos MD, [facility] CPT-4: 47648 09/09/2014 ([id number]) 19374 EST. P ATIENT, LEVEL III Diagnosis: GENERALIZED ANXIETY DISEASE[ICD9: 300.02] Diagnosis: Depression[ICD9: 311] Ale Carlos MD, [facility] CPT-4: 96974 07/26/2014 ([id number]) 64451 EST. P ATIENT, LEVEL IV Diagnosis: ESSENTIAL HYPERTENSION[ICD9: 401.9] Diagnosis: GENERALIZED ANXIETY DISEASE[ICD9: 300.02] Diagnosis: MILD COGNITIVE IMPAIREMT[ICD9: 331.83] Ale Carlos MD, [facility] CPT-4: 17421 07/10/2014 ([id number]) 37564 EST. P ATIENT, LEVEL IV Diagnosis: Dizziness[ICD9: 780.4] Diagnosis: GENERALIZED ANXIETY DISEASE[ICD9: 300.02] Diagnosis: Depression[ICD9: 311] Diagnosis: ESSENTIAL HYPERTENSION[ICD9: 401.9] Diagnosis: Urinary frequency[ICD9: 788.41] Ale Carlos MD, [facility] CPT-4: 59495 06/06/2014 ([id number]) 81476 EST. P ATIENT, LEVEL IV Diagnosis: ESSENTIAL HYPERTENSION[ICD9: 401.9] Diagnosis: GENERALIZED ANXIETY DISEASE[ICD9: 300.02] Diagnosis: Mild cognitive impairment with memory loss[ICD9: 331.83] Ale Carlos MD, [facility] CPT-4: 01685 05/29/2014 ([id number]) 59403 EST. P ATIENT, LEVEL IV Diagnosis: Pneumonia[ICD9: 486] Diagnosis: COUGH[ICD9: 786.2] Diagnosis: Hyponatremia[ICD9: 276.1] Diagnosis: ALLERGIC RHINITIS[ICD9: 477.9] Ale Carlos MD, [facility] CPT-4: 43910 05/20/2014 ([id number]) 35624 EST. P ATIENT, LEVEL III Diagnosis: ESSENTIAL HYPERTENSION[ICD9: 401.9] Diagnosis: Cough[ICD9: 786.2] Ale Carlos MD, [facility] CPT-4: 51621 03/25/2014 ([id number]) 78030 EST. P ATIENT, LEVEL III Diagnosis: COUGH[ICD9: 786.2] Diagnosis: ALLERGIC RHINITIS[ICD9: 477.9] Nelly Carlos MD, [facility] CPT- 4: 53528 02/08/2014 ([id number]) 48657 EST. P ATIENT, LEVEL III Diagnosis: ESSENTIAL HYPERTENSION[ICD9: 401.9] Diagnosis: Nasal congestion[ICD9: 478.19] Ale Carlos MD, [facility] CPT-4: 23035 12/24/2013 ([id number]) 30507 EST. P ATIENT, LEVEL III Diagnosis: Seasonal allergies[ICD9: 477.9] Diagnosis: Nasal congestion[ICD9: 478.19] Diagnosis: ABNORMAL LOSS OF WEIGHT[ICD9: 783.21] Ale Carlos MD, [facility] CPT-4: 91614 11/20/2013 ([id number]) 02398 EST. P ATIENT, LEVEL III Diagnosis: ABNORMAL LOSS OF WEIGHT[ICD9: 783.21] Diagnosis: MALAISE AND FATIGUE[ICD9: 780.79] Diagnosis: Hyponatremia[ICD9: 276.1] Nelly Carlos MD, [facility] CPT- 4: 71542 10/30/2013 ([id number]) 59046 EST. P ATIENT, LEVEL III Diagnosis: Acute maxillary sinusitis[ICD9: 461.0] Diagnosis: COUGH[ICD9: 786.2] Ale Carlos MD, [facility] CPT-4: 54580 10/08/2013 ([id number]) 41529 EST. P ATIENT, LEVEL IV Diagnosis: ESSENTIAL HYPERTENSION[SNOMED: 35227242] Diagnosis: GENERALIZED ANXIETY DISEASE[ICD9: 300.02] Diagnosis: OSTEOARTH NOS-UNSPEC[ICD9: 715.90] Diagnosis: Coronary artery disease[ICD9: 414.00] Ale Carlos MD, [facility] CPT-4: 15894 06/18/2013 ([id number]) 54560 EST. P ATIENT, LEVEL III Diagnosis: ESSENTIAL HYPERTENSION[SNOMED: 50656708] Ale Carlos MD, [facility] CPT-4: 26737 04/04/2013 ([id number]) 85985 EST. P ATIENT, LEVEL IV Diagnosis: ESSENTIAL HYPERTENSION[SNOMED: 54775366] Diagnosis: Leukopenia[ICD9: 288.50] Diagnosis: Encounter for long-term (current) use of other medications[ICD9: V58.69] Ale Carlos MD, [facility] CPT-4: 12456 02/19/2013 ([id number]) 57278 EST. P ATIENT, LEVEL IV Diagnosis: ESSENTIAL HYPERTENSION[SNOMED: 40396809] Diagnosis: MILD COGNITIVE IMPAIREMT[ICD9: 331.83] Ale Carlos MD, [facility] CPT-4: 19447 10/16/2012 ([id number]) 36994 EST. P ATIENT, LEVEL IV Diagnosis: ESSENTIAL HYPERTENSION[SNOMED: 62057484] Diagnosis: GENERALIZED ANXIETY DISEASE[ICD9: 300.02] Diagnosis: IRRITABLE COLON[ICD9: 564.1] Ale Carlos MD, [facility] CPT-4: 00034 03/20/2012 53864 EST. PATIENT, LEVEL IV Diagnosis: ESSENTIAL HYPERTENSION[SNOMED: 94993182] Diagnosis: Osteoarthritis[ICD9: 715.90] Diagnosis: HYPERLIPIDEMIA[ICD9: 272.4] Ale Carlos MD, [facility] CPT-4: 63504 01/24/2012 54933 EST. PATIENT, LEVEL IV Diagnosis: ESSENTIAL HYPERTENSION[SNOMED: 38762423] Diagnosis: BPH W URINARY OBS/LUTS[ICD9: 600.01] Ale Carlos MD, [facility] CPT-4: 10490 12/20/2011 ([id number]) 02204 EST. P ATIENT, LEVEL III Diagnosis: Lump in the groin[ICD9: 789.30] Ale Carlos MD, [facility] CPT-4: 54473 12/09/2011 ([id number]) [id number] EST. P ATIENT, LEVEL IV Diagnosis: ESSENTIAL HYPERTENSION[SNOMED: 24616802] Diagnosis: Mild cognitive impairment[ICD9: 331.83] Ale Carlos MD, [facility] CPT-4: 37611 08/25/2011 ([id number]) 86773 EST. P ATIENT, LEVEL IV Diagnosis: ESSENTIAL HYPERTENSION[SNOMED: 97146009] Diagnosis: GENERALIZED ANXIETY DISEASE[ICD9: 300.02] Diagnosis: MILD COGNITIVE IMPAIREMT[ICD9: 331.83] Diagnosis: IRRITABLE COLON[ICD9: 564.1] Ale Carlos MD, [facility] CPT-4: 11326 06/23/2011 ([id number]) 73031 EST. 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 CPT-4: 09069 04/19/2011 [id number] EST. PATIENT, LEVEL I Diagnosis: ESSENTIAL HYPERTENSION[SNOMED: 50488498] Ale Cralos MD, C CPT-4: 81655 03/23/2011 [id number] EST. PATIENT, LEVEL III Diagnosis: ESSENTIAL HYPERTENSION[SNOMED: 44136120] Diagnosis: Laceration of finger, index[ICD9: 883.0] Ale Carlos MD, C CPT-4: 61967 03/08/2011 [id number] EST. PATIENT, LEVEL III Diagnosis: ESSENTIAL HYPERTENSION[SNOMED: 21195057] Diagnosis: Irritable bowel syndrome (IBS)[ICD9: 564.1] Ale Carlos MD, [facility] CPT-4: 68301 03/01/2011 [id number] EST. PATIENT, LEVEL IV Diagnosis: Mild cognitive impairment with memory loss[ICD9: 331.83] Diagnosis: GENERALIZED ANXIETY DISEASE[ICD9: 300.02] Diagnosis: Bruising[ICD9: 924.9] Diagnosis: HYDROCELE[ICD9: 603.9] Ale Carlos MD, [facility] CPT-4: 47418 02/01/2011 [id number] EST. PATIENT, LEVEL III Diagnosis: Testicular pain[ICD9: 608.9] Diagnosis: GENERALIZED ANXIETY DISEASE[ICD9: 300.02] Nelly Carlos MD, [facility] CPT-4: 70274 01/27/2011 39584 EST. PATIENT, LEVEL III Diagnosis: Arm bruise[ICD9: 923.9] Nelly Carlos MD, [facility] CPT-4: 12905 01/26/2011 OFFICE VISIT, NEW - LEVEL 4 Diagnosis: DIARRHEA[ICD9: 787.91] Diagnosis: Elevated liver function tests[ICD9: 790.6] Diagnosis: Abdominal discomfort[ICD9: 789.00] Ale Carlos MD, [facility] CPT- 4: 42573 01/06/2011 Plan of Care Planned Activity Notes C odes Status Date Visit Plan: Bronchitis - acute case of b ronchitis identified. Pt has been given antibiotics, breathing treatments as appropriate, and pt has been instructed to call if symptoms are not improved, or if symptoms acutely worsen.stop the cefuroxime - start on azithromycin - the first day is 500mg, then it is 250mg daily x 4 more daysThrush - i will also call out a script for nystatin swish and swallow - you have thrush. 11/18/2016 Appointment: Ale Carlos WPtel: [facility]0 [facility] (15 min) Moderate 11/18/2016 Patient Education: Patient Medication Summary Completed 11/18/2016 Visit Plan: Hypertension - well controll ed - continue with current medications, continue with no added salt diet. Pt has been encouraged to exercise daily.The pt has been advised to call the office if there are any acute concerns about change in blood pressure readings at home.Memory loss -stable - continue with aricept and namenda.labs to be done from [facility] 08/23/2016 Appointment: Ale Carlos WPtel: [facility] (30 min) Complex 08/23/2016 Patient Education: Patient Medication Summary Completed 08/23/2016 Patient Education: Hypertension Completed 08/23/2016 Visit Plan: Hypertension - well controll ed - continue with current medications, continue with no added salt diet. Pt has been encouraged to exercise daily.The pt has been advised to call the office if there are any acute concerns about change in blood pressure readings at home. 04/26/2016 Appointment: Ale Carlos WPtel: [facility]0 [facility] (30 min) Complex 04/26/2016 Patient Education: Patient Medication Summary Completed 04/26/2016 Visit Plan: Joint effusion - recommended drainage and referral to orthopedic surgeon for surgical debridement of bursa 02/17/2016 Appointment: Ale Carlos WPtel: [facility]9 [facility] (30 min) Complex 02/17/2016 Patient Education: Patient Medication Summary Completed 02/17/2016 Visit Plan: Bursitis-right elbow-drained today in the office-increase anti inflammatories for the next 5 days as directed-call if symptoms do not resolve, swelling returns or new symptoms develop-patient verbalized understanding of plan. 02/09/2016 Appointment: Nelly Keen WPtel: [address] [phone] (30 min) Complex 02/09/2016 Patient Education: Patient [...] Keen WPtel: [facility] [phone] (30 min) Complex 02/03/2016 Patient Education: Patient Medication Summary Completed 02/03/2016 Patient Education: Patient Medication Summary Completed 01/30/2016 Care Plan: Metabolic Due on , Pending 01/30/2016 Visit Plan: Abdominal pain - nausea - Pt to have IV fluids at hospital 2015 Appointment: Ale Carlos WPtel: [facility]5 [facility] (30 min) Complex 01/26/2016 Patient Education: Patient Medication Summary Completed 01/26/2016 Visit Plan: Allergies - chronic - recomm ended pt to use allergy medication as prescribed. Pt has been counseled as to the appropriate use of the medication. Pt to call if allergy symptoms are not controlled with the medication.If using nasal spray, instructions as follows: Nasal spray- use twice daily, one spray per nostril twice daily, after 30 minutes, rinse out nose with saline spray.. Use opposite hand per nostril to spray in the nasal steroid allergy spray. 2015 Appointment: Nelly Keen WPtel: [facility]5 [facility] [phone] (30 min) Complex 01/21/2016 Patient Education: Patient Medication Summary Completed 01/21/2016 Visit Plan: Hypertension - well controll ed - continue with current medications except for stopping losartan, continue with no added salt diet. Pt has been encouraged to exercise daily.The pt has been advised to call the office if there are any acute concerns about change in blood pressure readings at home.Hyponatremia - decrease dose of sodium at lunch as it seems to be making Dr. Dash nauseated. 12/29/2015 Patient Education: Patient Medication Summary Completed 12/29/2015 Visit Plan: Hypertension - well controll ed - continue with current medications, continue with no added salt diet. Pt has been encouraged to exercise daily.The pt has been advised to call the office if there are any acute concerns about change in blood pressure readings at home.Alzheimer's Dementia - Pt with slowly progressive pattern. I have discussed with pt and family the prognosis of this disease state and the need for the family to anticipate further decline with behavior changes. Continue with current plan of treatment. 09/02/2015 Appointment: Ale Carlos WPtel: [facility] (15 min) Moderate 09/02/2015 Patient Education: Patient Medication Summary Completed 09/02/2015 Patient Education: Hypertension Completed 09/02/2015 Visit Plan: Hypertension - well controll ed - continue with current medications, continue with no added salt diet. Pt has been encouraged to exercise daily.The pt has been advised to call the office if there are any acute concerns about change in blood pressure readings at home.Hyperlipidemia - pt has been counseled about appropriate [...] and to assure normal liver response to medications.Mild cognitive impairment - continue with aricept, namenda. - symptoms stable.pt due for labs to be done for cholesterol check, renal function, and thyroid and cbcprevnar 13 injection today 05/06/2015 Appointment: Ale Carlos WPtel: [facility] (15 min) Moderate 05/06/2015 Patient Education: Patient Medication Summary Completed 05/06/2015 Patient Education: Hypertension Completed 05/06/2015 Care Plan: COMPLETE CBC AUTOMATED LOINC : 78534-7 Ordered 05/06/2015 Visit Plan: Hypertension - well controll ed - continue with current medications, continue with no added salt diet. Pt has been encouraged to exercise daily.The pt has been advised to call the office if there are any acute concerns about change in blood pressure readings at home.Esophageal Reflux - the patient has been counseled against excessive intake of caffeine, spicy foods, peppermint, and cinnamon - all of which can exacerbate esophageal reflux.The patient is to take medications as prescribed and call the office if the symptoms are not improving.Chronic Depression and anxiety - the pt has symptoms of chronic anxiety and depression that have been fairly well controlled since the last office visit. The pt has expected periods of exacerbation with abatement of the symptoms with change in situational exposure. No change in current medications. 03/05/2015 Appointment: Ale Carlos [facility]Ptel: [facility] (30 min) Complex 03/05/2015 Patient Education: Patient Medication Summary Completed 03/05/2015 Patient Education: Hypertension Completed 03/05/2015 Appointment: Nurse Visit 02/19/2015 Patient Education: Patient Medication Summary Completed 02/19/2015 Visit Plan: Hypertension - well controll ed - continue with current medications, continue with no added salt diet. Pt has been encouraged to exercise daily.The pt has been advised to call the office if there are any acute concerns about change in blood pressure readings at home.Esophageal Reflux - the patient has been counseled against excessive intake of caffeine, spicy foods, peppermint, and cinnamon - all of which can exacerbate esophageal reflux.The patient is to take medications as prescribed and call the office if the symptoms are not improving.Anxiety -has improved. 12/04/2014 Appointment: Ale Carlos WPtel: [facility] Follow up 12/04/2014 Patient Education: Patient Medication Summary Completed 12/04/2014 Patient Education: Hypertension Completed 12/04/2014 Visit Plan: Abdominal pain-patient repor ts worsening symptoms-schedule CT abdomen/pelvis to evaluate for acute abnormality Low sodium-increase gatorade to twice HTN-well controlled-no change in treatment 09/24/2014 Visit Plan: Abdominal pain-patient repor ts worsening symptoms-schedule CT abdomen/pelvis to evaluate for acute abnormality Low sodium-increase gatorade to twice HTN-well controlled-no change in treatment 09/24/2014 Appointment: Sick 09/24/2014 Patient Education: Patient Medication Summary Completed 09/24/2014 Patient Education: Hypertension Completed 09/24/2014 Care Plan: CT ABD & PELV 1/> [facility] [address] Ordered 09/24/2014 Visit Plan: Hypertension - well controll ed - continue with current medications, continue with no added salt diet. Pt has been encouraged to exercise daily.The pt has been advised to call the office if there are any acute concerns about change in blood pressure readings at home. Arthritis- occasionally uncontrolled symptoms- recommend pt to take antiinflammatory as directed for pain control.Use tylenol for break through pain symptoms.Memory loss - pt has stability of his memory on the namenda and aricept.CAD - on plavix - continue with treatment per Dr. Merlos. 09/09/2014 Patient Education: Patient Medication Summary Completed 09/09/2014 Patient Education: Hypertension Completed 09/09/2014 Visit Plan: Chronic Depression and anxie ty-improved over the past several weeks- the pt has symptoms of chronic anxiety and depression that have been fairly well controlled since the last office visit. The pt has expected periods of exacerbation with abatement of the symptoms with change in situational exposure. No change in current medications.INSTRUCTED PATIENT THAT HE SHOULD NOT BE DRIVING TO [place] 07/26/2014 Appointment: Sick 07/26/2014 Appointment: Sick 07/26/2014 Patient Education: Patient Medication Summary Completed 07/26/2014 Visit Plan: Hypertension - well controll ed - continue with current medications, continue with no added salt diet. Pt has been encouraged to exercise daily.The pt has been advised to call the office if there are any acute concerns about change in blood pressure readings at home.Chronic Depression and anxiety - the pt has symptoms of chronic anxiety and depression that have been fairly well controlled since the last office visit. The pt has expected periods of exacerbation with abatement of the symptoms with change in situational exposure. No change in current medications.MCI - symptoms improving with his new medication - pt did not bring his new medications with him to clinic and his discharge summary from the Behavioral unit did not include a medication list. 07/10/2014 Appointment: Ale Carlos WPtel: [address] [place], [place] [id number] [place] Follow up 07/10/2014 Patient Education: Patient Medication Summary Completed 07/10/2014 Patient Education: Hypertension Completed 07/10/2014 Appointment: Ale Carlos WPtel: [address] [place], [place] [id number] Follow up 06/20/2014 Appointment: Ale Carlos WPtel: [address] [place], [place] [phone] Follow up 06/10/2014 Visit Plan: Anxiety and depression - unc ontrolled - Pt has been counseled about the diagnosis of depression and anxiety, the potential causes, and risks associated with the diagnosis. The pt denies suicidal ideation, or plans. The patient has been counseled about treatment options, and understands the risks associated with treatment of depression, as well as the risks associated with NOT treating the depression.I believe the pt will benefit from medical intervention and an antidepressant has been appropriately prescribed for this patient.Hypertension - well controlled - continue with current medications, continue with no added salt diet. Pt has been encouraged to exercise daily.The pt has been advised to call the office if there are any acute concerns about change in blood pressure readings at home.Urinary jkjuotxam-STR-dtgstr flomax to bedtime Dizziness-stop hydrocodone and ativan 06/06/2014 Appointment: Follow up 06/06/2014 Patient Education: Patient Medication Summary Completed 06/06/2014 Patient Education: Hypertension Completed 06/06/2014 Visit Plan: Hypertension - too well cont rolled - decrease losartan to 25mg daily.DECREASE LOSARTAN TO 25MG - TAKE 1/2 OF A TABLET OF THE 50MG PILL DAILYCHECK BLOOD PRESSURE AT HOME AND BRING BY THE OFFICE ON TUESDAY MORNINGDementia with anxiety - INCREASE ARICEPT (DONEPEZIL) TO 5MG TAKEN TWICE A DAY.Fatigue/Malaise - HOLD THE SIMVASTATIN X 3 WEEKS 05/29/2014 Appointment: Ale Carlos WPtel: [address] [place], [place] [phone] [facility] 05/29/2014 Patient Education: Patient Medication Summary Completed 05/29/2014 Patient Education: Hypertension Completed 05/29/2014 Appointment: Ale Carlos WPtel: [address] [place], [place] [phone] Lab Draw 05/23/2014 Patient Education: Patient Medication Summary Completed 05/23/2014 Visit Plan: Pneumonia - Pt has been diag nosed with pneumonia by physical exam. A chest xray has been ordered as have antibiotics. The pt is aware of the diagnosis and the need for acute treatment of this illness.Fbfkcjzqk-bwgbj-mmuccjg flonase nasal spray Hyponatremia-increase gatorade as directedADDENDUM: RECOMMEND PATIENT START ON ALBUTEROL NEBULIZER TREATMENTS EVERY 4 HOURS NEEDED FOR SHORTNESS OF BREATH/WHEEZING. DX SECONDARY PNEUMONIA FROM INFLUENZA, COUGH 05/20/2014 Visit Plan: Pneumonia - Pt has been diag nosed with pneumonia by physical exam. A chest xray has been ordered as have antibiotics. The pt is aware of the diagnosis and the need for acute treatment of this illness.Qfxysnogc-zintr-amijwqf flonase nasal spray Hyponatremia-increase gatorade as directed 05/20/2014 Patient Education: Patient Medication Summary Completed 05/20/2014 Appointment: Ale Carlos WPtel: [facility] Injection 03/26/2014 Patient Education: Patient Medication Summary Completed 03/26/2014 Visit Plan: Hypertension - well controll ed -continue with no added salt diet. Pt has been encouraged to exercise daily.The pt has been advised to call the office if there are any acute concerns about change in blood pressure readings at home.Pt needs to stop the lisinopril due to cough and pt is to start on losartan and we will monitor his symptoms.I have discussed this with Dr. Merlos. 03/25/2014 Appointment: Ale Carlos WPtel: [facility] Follow up 03/25/2014 Patient Education: Patient Medication Summary Completed 03/25/2014 Patient Education: Hypertension Completed 03/25/2014 Visit Plan: Gtfph-uvzaiylvu-nvlcppc joel ngeal reflux-RX for protonix (patient is on plavix) and follow up in 1 month. Call if symptoms do not improve or if any worseAllergies-improved on flonase-continue as directed and call if symptoms return. 02/08/2014 Patient Education: Patient Medication Summary Completed 02/08/2014 Visit Plan: Hypertension - well controll ed - continue with current medications, continue with no added salt diet. Pt has been encouraged to exercise daily.The pt has been advised to call the office if there are any acute concerns about change in blood pressure readings at home. 12/24/2013 Appointment: Ale Carlos WPtel: [facility]5 [facility] Follow up 12/24/2013 Patient Education: Patient Medication Summary Completed 12/24/2013 Visit Plan: Allergies - chronic - recomm ended pt to use allergy medication as prescribed. Pt has been counseled as the appropriate use of the medication. Pt to call if allergy symptoms are not controlled with the medication.If using nasal spray, instructions as follows: Nasal spray- use twice daily, one spray per nostril twice daily, after 30 minutes, rinse out nose with saline spray.. Use opposite hand per nostril to spray in the nasal steroid allergy spray.Weight loss - improved - pt to continue with increase in protein and portion size. 11/20/2013 Appointment: Ale Carlos WPtel: [address] [place], [place] [phone] Follow up 11/20/2013 Patient Education: Patient Medication Summary Completed 11/20/2013 Appointment: Ale Carlos WPtel: [address] [place], [place] [id number] Follow up 11/06/2013 Visit Plan: Weight loss-increase portion s-add snacks in the morning and afternoon-follow up in 3 weeks for weight checkLow sodium-check labs-restart gatorade Pvebmwy-miyfwr-dwtjo labs and UA 10/30/2013 Patient Education: Patient Medication Summary Completed 10/30/2013 Appointment: Ale Carlos WPtel: [address] [place], [place] [phone] Follow up 10/16/2013 Visit Plan: Sinusitis - Pt has acute inf ection - pain in face, maxillary region, Pt informed to use decongestant, RX given to patient, sinus rinses also recommended. Call if symptoms do not show improvement.Tick bite - rx for doxycycline Allergies - chronic - recommended pt to use allergy medication as prescribed. Pt has been counseled as the the appropriate use of the medication. Pt to call if allergy symptoms are not controlled with the medication.If using nasal spray, instructions as follows: Nasal spray- use twice daily, one spray per nostril twice daily, after 30 minutes, rinse out nose with saline spray.. Use opposite hand per nostril to spray in the nasal steroid allergy spray. 2013 Patient Education: Patient Medication Summary Completed 10/08/2013 Visit Plan: Hypertension - well controll ed - continue with current medications, continue with no added salt diet. Pt has been encouraged to exercise daily.The pt has been advised to call the office if there are any acute concerns about change in blood pressure readings at home. Arthritis- occasionally uncontrolled symptoms- recommend pt to take antiinflammatory as directed for pain control.Use tylenol for break through pain symptoms.Memory loss - pt has stability of his memory on the namenda and aricept.CAD - on plavix - continue with treatment per Dr. Merlos. 06/18/2013 Appointment: Ale Carlos WPtel: [phone] [facility] Follow up 06/18/2013 Patient Education: Patient Medication [...] the office next week for practicioner to review.The pt is to call for acute concerns. 04/04/2013 Appointment: Ale Carlos WPtel: [facility] Follow up 04/04/2013 Patient Education: Patient Medication Summary Completed 04/04/2013 Patient Education: Hypertension Completed 04/04/2013 Visit Plan: Hypertension - well controll ed at home per patient report, continue with current medications, continue with no added salt diet. Pt has been encouraged to exercise daily.The pt has been advised to call the office if there are any acute concerns about change in blood pressure readings at home.Mild leukopenia on last cbc - a cbc was drawn today, will be evaluated and call pt with report. 02/19/2013 Appointment: Terrance Ale WPtel: 101[address] [facility] Follow up 02/19/2013 Patient Education: Patient Medication Summary Completed 02/19/2013 Patient Education: Hypertension Completed 02/19/2013 Patient Education: Patient Medication Summary Completed 02/06/2013 Visit Plan: Hypertension - well controll ed - continue with current medications, continue with no added salt diet. Pt has been encouraged to exercise daily.The pt has been advised to call the [...] loss. 10/16/2012 Appointment: Ale Carlos WPtel: 1015 [facility] Follow up 10/16/2012 Patient Education: Patient Medication Summary Completed 10/16/2012 Patient Education: Hypertension Completed 10/16/2012 Visit Plan: Hypertension - well controll ed - continue with current medications, continue with no added salt diet. Pt has been encouraged to exercise daily.The pt has been advised to call the [...] at next office visit after review of testing.Irritable bowel syndrome - pt doing well off of bentyl, pt is to call MIKAELA if symptoms of irritable colon return. 06/19/2012 Appointment: Ale Carlos WPtel: 101[address] [facility] Follow up 06/19/2012 Patient Education: Patient Medication Summary Completed 06/19/2012 Patient Education: Hypertension Completed 06/19/2012 Visit Plan: Hypertension - well controll ed - continue with current medications, continue with no added salt diet. Pt has been encouraged to exercise daily.The pt has been advised to call the office if there are any acute concerns about change in blood pressure readings at home.OA - symptoms controlled - and pt is to have a trial on lower dose of mobic, if pain continues to be controlled on the lower dose of the medication, can stop the mobic and let the office know if he is successfully pain free off of the medication.Irritable bowel syndrome - pt to trial on lower dose of the bentyl and see how he does, then trial off of the bentyl. 03/20/2012 Appointment: Ale Carlos WPtel: 1015 [facility] Follow up 03/20/2012 Patient Education: Patient Medication Summary Completed 03/20/2012 Patient Education: High Blood Pressure: Essential Hypertension Completed 03/20/2012 Appointment: Ale Carlos WPtel: 101[address] [facility] Follow up 02/22/2012 Visit Plan: Hypertension - well control led - continue with current medications, continue with no added salt diet. 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 01/24/2012 Appointment: Ale Carlos WPtel: [address] [place], [place] [address] Follow up 01/24/2012 Patient Education: Patient Medication Summary Completed 01/24/2012 Patient Education: High Blood Pressure: Essential Hypertension Completed 01/24/2012 Visit Plan: Hypertension and Coronary ar juan disease- recommended pt to cut his LISINOPRIL to 1/[address] 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 I anticipate it will be at least 4-6 months before he can be off of the plavix and aspirin for additonal procedures unless it is of extreme urgency. 12/20/2011 Appointment: Ale Carlos WPtel: [facility]5 [facility] [place] Follow up 12/20/2011 Patient Education: Patient Medication Summary Completed 12/20/2011 Patient Education: High Blood Pressure: Essential Hypertension Completed 12/20/2011 Appointment: Ale Carlos WPtel: [facility]5 [facility] Other 12/13/2011 Visit Plan: Pain in groin post heart cat h with increased discomfort and increased size - will order an ultrasound for today. 12/09/2011 Appointment: Ale Carlos WPtel: [facility]5 [facility] Other 12/09/2011 Patient Education: Patient Medication Summary Completed 12/09/2011 Visit Plan: Hypertension - well controll ed - continue with current medications, continue with no added salt diet. Pt has been encouraged to exercise daily.The pt has been advised to call the office if there are any acute concerns about change in blood pressure readings at home.Mild cognitive Impairment - appears to be improved. [...] Carlos WPtel: [facility]5 [facility] Other 08/25/2011 Patient Education: Patient Medication Summary Completed 08/25/2011 Patient Education: High Blood Pressure: Essential Hypertension Completed 08/25/2011 Visit Plan: Hypertension - well controll ed - continue with current medications, continue with no added salt diet. Pt has been encouraged to exercise daily.The pt has been advised to call the office if there are any acute concerns about change in blood pressure readings at home.Irritable Bowel syndrome - continue with daily use of dicyclomine for irritable bowel cramping symptoms.Constipation - pt given recipe for power pudding for prn use.Mild cognitive impairment - Pt has had improved anxiety and memory loss symptoms on aricept and namenda. No change in current treatment.Anxiety - pt's current RX for ativan has gone bad and he needs a refill for current supply of new pills for prn use - pt given refill today.Arthritis - pain controlled with use of mobic at low doses. 2011 Appointment: Ale Carlos WPtel: [address] [place], [place] [id number] Other 06/23/2011 Patient Education: Patient Medication Summary Completed 06/23/2011 Patient Education: High Blood Pressure: Essential Hypertension Completed 06/23/2011 Appointment: Ale Carlos WPtel: [address] [place], [place] [id number] [place] Other 04/26/2011 Visit Plan: Hypertension - well control led - continue with current medications, continue with no added salt diet. Pt has been encouraged to exercise daily.The pt has been advised to call the office if there are any acute concerns about change in blood pressure readings at home.The left leg/ groin pain- the LATERAL FEMORAL CUTANEOUS NERVE was the nerve that we think was causing a lot of pain symptoms in the left groin.I agree with Dr. Merlos with the recommendation to stop the plavix.Restart gatorade.Diverticulosis - symptoms appear to be resolved, call if there is acute changes in symptoms of abdominal pain. Pt to continue to avoid nuts, seeds, etc. 04/19/2011 Appointment: Ale Carlos WPtel: [facility]6 [facility] Other 04/19/2011 Patient Education: Patient Medication Summary Completed 04/19/2011 Patient Education: High Blood Pressure: Essential Hypertension Completed 04/19/2011 Patient Education: Diverticulosis Diet Completed 04/19/2011 Appointment: Nelly Keen WPtel: [facility]2 [id number] Other 03/23/2011 Patient Education: Patient Medication Summary Completed 03/23/2011 Patient Education: High Blood Pressure: Essential Hypertension Completed 03/23/2011 Visit Plan: Record blood pressure and he art rate at home and drop the readings by the office in two weeks. No change in medications today. Laceration - removed suture today - pt to call if any complications arise. 03/08/2011 Appointment: Ale Calros WPtel: [facility]1 [facility]66[facility] Other 03/08/2011 Patient Education: Patient Medication Summary Completed 03/08/2011 Patient Education: High Blood Pressure: Essential Hypertension Completed 03/08/2011 Visit Plan: Hypertension - uncontrolled - the [...] the office next week for practicioner to review.The pt is to call for acute concerns. DIRECTED BY DR. MERLOS, GO TO HIS OFFICE TOMORROW WITH YOUR BLOOD PRESSURE READINGS. DR. CARLOS WILL FAX YOUR OFFICE VISIT TO HIS OFFICE TODAY.Laceration of the finger- use the bandaids on the finger during the day, leave off the bandaid after your evening shower for an hour or so, then replace the bandaide before bed.. Use neosporin on the cut.Return to clinic next Tuesday and Dr. Carlos will take out the stitches.Irritable bowel- stop the scheduled bentyl and use it only as needed...if your stomach starts to cause pain, there is excessive abdominal cramping, or diarrhea, you may restart the bentyl up to two times a day. 2010 Appointment: Ale Carlos WPtel: [address] [facility] [place] Other 03/01/2011 Patient Education: Patient Medication Summary Completed 03/01/2011 Patient Education: High Blood Pressure: Essential Hypertension Completed 03/01/2011 Appointment: Nelly Keen WPtel: [address] [phone] [place] Injection 02/25/2011 Patient Education: Patient Medication Summary Completed 02/25/2011 Appointment: Ale Carlos WPtel: [address] [facility] [place] Injection 02/16/2011 Patient Education: Patient Medication Summary Completed 02/16/2011 [facility]ment[facility] [place] In[facility] 02/09/2011 Patient Education: Patient Medication Summary Completed 02/09/2011 Appointment: [facility]el[facility] [place] Follow up 02/02/2011 Visit Plan: Hydrocele and varicocele- Re commend wearing boxer briefs instead of regular underwear.Memory loss- recommend to increase the NAMENDA a starter pack given today to start and increase to 10 mg twice daily.Pt to continue with current dose of Aricept.Anxiety - continue with use of the ativan prn for his severe bouts of anxiety.Dr. Dash has given me permission to discuss his condition with his son - Kneji Dash in [place].Upon our conversation ublo-ond-eirim, Kenji vocalized concerns for his Dad's memory. He stated that he has noticed his father not being as quick in his cognitive functioning, he has noticed some concerns with driving as well. He states that he will discuss these concerns with his parents and other siblings. 02/01/2011 Appointment: Ale Carlos WPtel: [facility] Other 02/01/2011 Patient Education: Patient Medication Summary Completed 02/01/2011 Visit Plan: Testicular pain-improved in the office today-but apparently had episode of acute pain last night-check ultrasound. UA done in the office negative. Anxiety - the patient continues with symptoms of anxiety (tachycardia, overwhelming sensations, stress, insomnia, etc). Instructed patient okay to take lorazepam every 8 hours as needed. 01/27/2011 Appointment: Ale Carlos WPtel: [facility] [place] New Patient 01/27/2011 Patient Education: Patient Medication Summary Completed 01/27/2011 Visit Plan: Bruising/hematoma left arm-d iscussed natural and expected course of this diagnosis and to alert me if symptoms do not follow expected course or if any worse, Continue with ice/heat as needed for discomfort. Call for any concerns. 01/26/2011 Appointment: Nelly Keen WPtel: [facility]0 [phone] Other 01/26/2011 Patient Education: Patient Medication Summary Completed 01/26/2011 Visit Plan: Nocturia-defer treatment to Dr. Quintero. Continue with proscar and flomax. Return to follow up with Dr. Quintero on Tuesday as scheduled. Call if unable to void, fever, other concerns, etc. Abdominal bloating, gas-recommend lactobacillus 1 po twice daily while on antibiotics. Diarrhea-resolved per patient report. Finish antibiotics for full course.PT ADMITTED TO HOSPITAL IN THE EVENING OF [...] full course. 01/15/2011 Appointment: Nelly Keen [facility]Ptel: [phone] [place] Other 01/15/2011 Patient Education: Patient Medication Summary Completed 01/15/2011 Visit Plan: Abdominal symptoms with elev ated liver enzymes- will order gallbladder ultrasound and if negative, the doctor will pursue a CT of the abdominal blood vessels to check for adequate blood flow through those vessels.The scan is for Jan 12 at 8:00 am.no food or drink aftermidnight the day prior to the gallbladder ultrasound.I have advised the pt to remain on [...] 3 days of the lactose free diet. 2010 Appointment: Ale Carlos [facility]Ptel[facility] [address] [facility] [facility] Patient 01/06/2011 Patient Education: Patient Medication Summary Completed 01/06/2011 Instructions Comment . Pneumonia - Pt has been diagnosed with pneumonia by physical exam. A chest xray has been ordered as have antibiotics. The pt is aware of the diagnosis and the need for acute treatment of this illness. Sghdaygty-kufec-cartqbf flonase nasal spray Hyponatremia-increase gatorade as directed ADDENDUM: RECOMMEND PATIENT START ON ALBUTEROL NEBULIZER TREATMENTS EVERY 4 HOURS NEEDED FOR SHORTNESS OF BREATH/WHEEZING. DX SECONDARY PNEUMONIA FROM INFLUENZA, COUGH INCREASE YOUR MELOXI CAM (MOBIC) TO 1/2 [...] of his anxiety and memory loss. . Joint effusion - r ecommended drainage and referral to orthopedic surgeon for surgical debridement of bursa . 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 I anticipate it will be at least 4-6 months before he can be off of the plavix and aspirin for additonal procedures unless it is of extreme urgency. . Pain in groin post heart cath with increased discomfort and increased size - will order an ultrasound for today. . Bruising/hematoma left arm-discussed natural and expected course of this diagnosis and to alert me if symptoms do not follow expected course or if any worse, Continue with ice/heat as needed for discomfort. Call for any concerns. . Hypertension - wel l controlled at [...] be evaluated and call pt with report. . Hypertension - wel l controlled - [...] not need increased dose of either medication. Increase your loraze anmol to 1/2 tablet [...] need for acute treatment of this illness. Lppgesnvy-alvmu-pqmkvys flonase nasal spray Hyponatremia-increase gatorade as directed . Abdominal symptoms with elevated liver enzymes- [...] days of the lactose free diet. . Nocturia-defer daina atment to Dr. Quintero. Continue with proscar and flomax. Return to follow up with Dr. Quintero on Tuesday as scheduled. Call if unable to void, fever, other concerns, etc. Abdominal bloating, gas-recommend lactobacillus 1 po twice daily while on antibiotics. Diarrhea-resolved per patient report. Finish antibiotics for full course. PT ADMITTED TO HOSPITAL IN THE EVENING OF 01/15/11 INCREASE GATORADE TO TWICE DAILY . Abdominal pain-patient reports worseni ng symptoms-schedule CT abdomen/pelvis to evaluate for acute abnormality Low sodium-increase gatorade to twice HTN-well controlled-no change in treatment INCREASE GATORADE TO TWICE DAILY . Abdominal pain-patient reports worseni ng symptoms-schedule CT abdomen/pelvis to evaluate for acute abnormality Low sodium-increase gatorade to twice HTN-well controlled-no change in treatment on the Requip - decr ease the [...] to be done from [facility] Blood pressure check today in the office-improving. . Hypertension - wel l controlled - [...] in current medications. . Abdominal pain - n ausea - [...] two times a day. I sent a prescriptio n of generic zyrtec to [facility] - if it is expensive get the [...] swish and swallow - you have thrush. PT HAS BEEN INSTRUCT ED TO INCREASE [...] pt is to call for acute concerns. CHECK LABS-CBC, CMP, UA WITH C&S IF INDICATED . Weight loss-increase portions-add snac ks in the morning and afternoon-follow up in 3 weeks for weight check Low sodium-check labs-restart gatorade Zyzqdgd-jdvdbi-ypkfx labs and UA Nasal spray- use twi ce daily, one [...] in the nasal steroid allergy spray. . Jjozw-kwjglojuo-ov spect laryngeal reflux-RX for protonix (patient is [...] - continue with treatment per Dr. Merlos. Appointment in [address] [place] [address] Carlos. Recommend Lactobacillus 1 orally [...] Kenji Dash in [place]. Upon our conversation ufbg-wnf-pyjfr, Kenji vocalized concerns for his Dad's memory. He stated that he has noticed his father not being as quick in his cognitive functioning, he has noticed some concerns with driving as well. He states that he will discuss these concerns with his parents and other siblings. stop losartan - [facility] k blood pressure and heart rate [...] be making Dr. Dash nauseated. decrease Protonix (p antoprazole) to ONE pill [...] current plan of treatment. . Hypertension - wel l controlled - [...] THAT HE SHOULD NOT BE DRIVING TO [place] Pt is to try 1/2 pil l [...] then trial off of the bentyl. . Record blood press ure and heart rate at home and drop the readings by the office in two weeks. No change in medications today. Laceration - removed suture today - pt to call if any complications arise. . Hypertension - wel l controlled - [...] in blood pressure readings at home. Urinary nkxxaevhr-UAI-mwughj flomax to bedtime Dizziness-stop hydrocodone and ativan [...] unit did not include a medication list. decrease CELEXA (gen ernie name is citalopram) [...] symptoms are not improving. Anxiety -has improved. INCREASE ARICEPT (DO NEPEZIL) TO 5MG TAKEN [...]
--- OUTSIDE RECORDS SUMMARY | 2019-07-16 07:29 | XMS REPORT | CCD ---
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 Name Role Phone Ale Carlos PP Unavailable CCM Unavailable Summary Purpose Interface Exchange Insurance Providers Payer name Policy type / Coverage type Covered constitution party ID Effective Begin Date Effective End Date WPS Medicare Part B Medicare Part B [id number] Unknown Unknown [facility] icare Part B [id number] Unknown Unk nown Family history Runs in the family Diagnosis Age At Onset No Family Disease Entered N/A Mother Diagnosis Age At Onset No Family Disease Entered N/A Father Diagnosis Age At Onset Heart disease Unknown Social History Social History Element Codes Description Effective Dates Number of children Unknown 3 3 ([place], [place], [place]) 2014 Living arrangements Unknown House 01/11/2011 Number of adults in household Unknown 2 01/11/2011 Education level Unknown Post-Graduate PHD in chemistry 01/11/2011 Employment Unknown [employer] of [employer] 01/11/2011 Marital status Unknown M arried 01/06/[address]: 356560466 Never smoker 01/06/[address]: 720098465 Quit this year quit 200401/06/2011 Has the [...] Date Stop Date Sta tus Fill Instructions nystatin 100,000 uni t/mL oral suspension RxNorm: 176169 5 Milliliter(s) PO QI D 11/18/2016 11/27/2016 Ac tive azithromycin 250 mg tablet RxNorm: 583498 1 Tablet(s) PO UD 2 p ills on day #1 then one pill daily x 4 more days 11/18/2016 11/22/2016 Active Mobic 15 mg tablet RxNorm: 670611 1/2 TABLET(S) DAILY 10/28/2016 03/26/2017 Active citalopram 10 mg tablet RxNorm: 747615 TAKE 1 TABLET BY MOUTH EVERY DAY 10/07/2016 03/05/2017 Ac tive Patient requests 90 days supply mirtazapine 15 mg ta blet RxNorm: 719856 TAKE ONE TABLET BY MO UT EVERY DAY 10/06/2016 09/30/2017 Ac tive mirtazapine 15 mg ta blet RxNorm: 048775 TAKE ONE TABLET BY MO UTH EVERY DAY 10/05/2016 10/05/2016 In active Patient requests 90 days supply amlodipine 10 mg tablet RxNorm: 336805 TAKE 1 TABLET BY MOUTH EVERY DAY 09/14/2016 09/08/2017 Ac tive clopidogrel 75 mg ta blet RxNorm: 600176 TAKE 1 TABLET BY MOUT H EVERY DAY 06/28/2016 12/24/2016 Ac tive lisinopril 20 mg tablet RxNorm: 083977 TAKE 1 TABLET DAILY 05/31/2016 11/26/2016 Active donepezil 10 mg tablet RxNorm: 650246 TAKE 1 TABLET BY MOUTH ONCE DAILY 05/11/2016 11/06/2016 In active donepezil 10 mg tablet RxNorm: 732665 TAKE 1 TABLET BY MOUTH ONCE DAILY 04/26/2016 05/10/2016 In active Mobic 15 mg tablet RxNorm: 703278 1/2 Tablet(s) daily 04/19/2016 10/15/2016 Inactive citalopram 10 mg tablet RxNorm: 328298 TAKE 1 TABLET BY MOUTH EVERY DAY 04/06/2016 04/25/2016 In active cetirizine 10 mg tablet RxNorm: 8319055 Tablet(s) 1 TABLET(S) PO DAILY TO TAKE I NSTEAD OF THE CLARITIN 03/30/2016 02/22/2017 Active amlodipine 10 mg tablet RxNorm: 261261 TAKE 1 TABLET BY MOUTH EVERY DAY 03/08/2016 03/02/2017 Ac tive amlodipine 10 mg tablet RxNorm: 288317 1 Tablet(s) PO daily TAKE 1 TABLET BY [facility] ONCE DAILY 03/03/2016 03/07/2016 Inactive Requip 0.25 mg tablet RxNorm: 830791 1 Tablet(s) PO BID 03/03/2016 09/13/2016 Inactive Mobic 15 mg tablet RxNorm: 495194 1 Tablet(s) daily not refilled on a 02/23/2016 04/18/2016 In active cetirizine 10 mg tablet RxNorm: 6012686 1 TABLET(S) PO DAILY TO TAKE INSTEAD OF THE CLARITIN 02/19/2016 03/19/2016 Inactive lisinopril 20 mg tablet RxNorm: 263151 TAKE 1 TABLET DAILY 02/18/2016 05/17/2016 Inactive Namenda 10 mg tablet RxNorm: 822375 Tablet(s) TAKE 1 TABLET BY MOUTH TWICE D AILY. 02/17/2016 No Stop Date Active lisinopril 20 mg tablet RxNorm: 990184 TAKE 1 TABLET DAILY 01/23/2016 06/20/2016 Inactive cetirizine 10 mg tablet RxNorm: 1163583 1 Tablet(s) PO daily to take instead of the claritin 01/21/2016 02/18/2016 Inactive amlodipine 10 mg tablet RxNorm: 433580 1 Tablet(s) PO daily TAKE 1 TABLET BY MO UTH ONCE DAILY 12/02/2015 03/02/2016 Inactive clopidogrel 75 mg ta blet RxNorm: 117351 TAKE 1 TABLET BY MOUT H EVERY DAY 11/25/2015 05/22/2016 In active Mobic 15 mg tablet RxNorm: 260897 TAKE(1/2) TABLET DAILY. 11/17/2015 02/22/2016 Inactive lisinopril 20 mg tablet RxNorm: 774376 TAKE 1 TABLET DAILY 11/17/2015 01/15/2016 Inactive Mobic 15 mg tablet RxNorm: 073096 1/2 Tablet(s) PO daily TAKE (1/2) TABLET DAILY. 11/12/2015 11/16/2015 Inactive citalopram 10 mg tablet RxNorm: 390470 TAKE 1 TABLET BY MOUTH EVERY DAY 10/27/2015 04/05/2016 In active Requip 0.25 mg tablet RxNorm: 706603 1 Tablet(s) PO BID 10/15/2015 02/11/2016 Inactive Requip 0.25 mg tablet RxNorm: 276867 1 Tablet(s) PO BID 10/15/2015 10/14/2015 Inactive mirtazapine 15 mg ta blet RxNorm: 833989 1 Tablet(s) PO daily 09/08/2015 10/01/2016 Inactive donepezil 10 mg tablet RxNorm: 494532 TAKE 1 TABLET DAILY 09/01/2015 04/25/2016 Inactive amlodipine 10 mg tablet RxNorm: 800543 1 Tablet(s) PO daily TAKE 1 TABLET BY MO UTH ONCE DAILY 08/18/2015 12/01/2015 Inactive clopidogrel 75 mg ta blet RxNorm: 814648 1 Tablet(s) PO daily TAKE 1 TABLET DAILY 05/20/2015 11/24/2015 In active Mobic 15 mg tablet RxNorm: 910614 Tablet(s) TAKE (1/2) TABLET DAILY. 04/23/2015 10/19/2015 In active lisinopril 20 mg tablet RxNorm: 030436 TAKE 1 TABLET DAILY 04/22/2015 11/16/2015 Inactive Mobic 15 mg tablet RxNorm: 721526 TAKE (1/2) TABLET DAILY. 04/22/2015 04/22/2015 Inactive sulfamethoxazole 400 mg-trimethoprim 80 mg tablet RxNorm: 809475 1/2 Tablet(s) PO nancy y 03/11/2015 04/09/2015 Inactive Vesicare 5 mg tablet RxNorm: 237113 1 Tablet(s) PO 03/11/2015 05/09/2015 Inactive Protonix 40 mg table t,delayed release RxNorm: 141663 1 Tablet(s) PO BID 03/05/2015 09/30/2015 In active ok to change from [address] Archana rivera clopidogrel 75 mg ta blet RxNorm: 996163 1 Tablet(s) PO daily TAKE 1 TABLET DAILY 02/20/2015 05/19/2015 In active Namenda 10 mg tablet RxNorm: 619545 Tablet(s) TAKE 1 TABLET BY MOUTH TWICE D AILY. 01/22/2015 02/16/2016 Inactive amlodipine 10 mg tablet RxNorm: 394373 TAKE 1 TABLET BY MOUTH ONCE DAILY 01/14/2015 08/17/2015 In active donepezil 10 mg tablet RxNorm: 454767 TAKE 1 TABLET DAILY 01/06/2015 08/31/2015 Inactive Levsin 0.125 mg tablet RxNorm: 8124485 1 Tablet(s) PO QID as needed FOR ABD REJI N 11/05/2014 12/03/2014 In active Mobic 15 mg tablet RxNorm: 757393 1/2 Tablet(s) daily TAKE (1/2) TABLET DA MOIZ. 10/01/2014 04/21/2015 Inactive ciprofloxacin 500 mg tablet RxNorm: 400591 1 Tablet(s) PO BID 09/27/2014 10/01/2014 Inactive Flagyl 500 mg tablet RxNorm: 237503 1 Tablet(s) PO TID 09/27/2014 10/03/2014 Inactive take probiotic BID donepezil 10 mg tablet RxNorm: 010802 1/2 Tablet(s) PO BID 09/24/2014 01/05/2015 Inactive lisinopril 20 mg tablet RxNorm: 758192 TAKE 1 TABLET DAILY 09/05/2014 04/21/2015 Inactive amlodipine 10 mg tablet RxNorm: 406812 1 Tablet(s) PO daily 09/02/2014 12/30/2014 Inactive mirtazapine 15 mg ta blet RxNorm: 940578 1 Tablet(s) PO daily 08/28/2014 09/07/2015 Inactive donepezil 10 mg tablet RxNorm: 178623 1 Tablet(s) PO daily 08/28/2014 09/23/2014 Inactive citalopram 10 mg tablet RxNorm: 934322 1 Tablet(s) PO daily 08/28/2014 03/25/2015 Inactive citalopram 10 mg tablet RxNorm: 358480 1 Tablet(s) PO daily 08/07/2014 08/27/2014 Inactive citalopram 10 mg tablet RxNorm: 422296 1 Tablet(s) PO daily 08/07/2014 08/06/2014 Inactive Flagyl 500 mg tablet RxNorm: 122299 1 Tablet(s) PO TID 08/02/2014 08/01/2014 Inactive take probiotic BID Flagyl 500 mg tablet RxNorm: 353074 1 Tablet(s) PO TID 08/02/2014 08/08/2014 Inactive take probiotic BID tamsulosin ER 0.4 mg capsule,extended release 24 hr RxNorm: 598245 1 Capsule(s) PO QHS 06/06/2014 03/10/2015 Inactive TAKE AT BEDTIME escitalopram 5 mg ta blet RxNorm: 958860 1 Tablet(s) PO QPM 06/06/2014 08/06/2014 Inactive doxycycline hyclate 100 mg tablet RxNorm: 696674 1 Tablet(s) PO BID 05/31/2014 05/30/2014 Inactive doxycycline hyclate 100 mg tablet RxNorm: 682721 1 Tablet(s) PO BID 05/31/2014 06/06/2014 Inactive please deliver if not picked by 3pm Aricept 5 mg tablet RxNorm: 714588 1 Tablet(s) PO BID 05/29/2014 08/27/2014 Inactive losartan 50 mg tablet RxNorm: 343259 1/2 Tablet(s) PO daily 05/29/2014 12/28/2015 Inactive clopidogrel 75 mg ta blet RxNorm: 128591 1 Tablet(s) PO daily 05/27/2014 05/26/2014 Inactive Mobic 15 mg tablet RxNorm: 551175 TAKE (1/2) TABLET DAILY. 05/27/2014 09/30/2014 Inactive clopidogrel 75 mg ta blet RxNorm: 877077 TAKE 1 TABLET DAILY 05/27/2014 02/19/2015 Inactive Mobic 15 mg tablet RxNorm: 869392 1/2 Tablet(s) PO daily TAKE (1/2) TABLET DAILY. 05/27/2014 05/26/2014 Inactive prednisone 20 mg tablet RxNorm: 030270 1 Tablet(s) PO BID 05/21/2014 05/25/2014 Inactive albuterol sulfate 2. 5 mg/0.5 mL solution for nebulization RxNorm: 605133 1 inhale INH Q4H as needed 05/21/2014 09/01/2015 Inactive prednisone 20 mg tablet RxNorm: 969902 1 Tablet(s) PO BID 05/21/2014 05/20/2014 Inactive cefdinir 300 mg capsule RxNorm: 717717 1 Capsule(s) PO BID 05/20/2014 05/26/2014 Inactive Zithromax Z-Dequan 250 mg tablet RxNorm: 877821 1 Tablet(s) PO UD 05/20/2014 05/24/2014 Inactive zpack lorazepam 0.5 mg tablet RxNorm: 469303 1/2 to 1 Tablet(s) PO Q8 PRN as needed 04/30/2014 06/05/2014 In active Namenda 10 mg tablet RxNorm: 781393 TAKE 1 TABLET BY MOUTH TWICE DAILY. 04/15/2014 01/21/2015 In active Namenda 10 mg tablet RxNorm: 845617 1 Tablet(s) PO BID 04/15/2014 04/14/2014 Inactive losartan 50 mg tablet RxNorm: 939250 1 Tablet(s) PO daily 03/25/2014 05/28/2014 Inactive Protonix 40 mg table t,delayed release RxNorm: 449496 1 Tablet(s) PO QPM 03/21/2014 06/18/2014 In active ok to change from [address] Archana rivera fluticasone 50 mcg/a ctuation nasal spray,suspension RxNorm: 577068 1 Ava NASAL BID 03/04/2014 09/29/2014 Inactive Protonix 20 mg table t,delayed release RxNorm: 376929 1 Tablet(s) PO QPM 02/08/2014 03/20/2014 In active fluticasone 50 mcg/a ctuation nasal spray,suspension RxNorm: 400713 1 Ava NASAL BID 01/30/2014 03/03/2014 Inactive fluticasone 50 mcg/a ctuation nasal spray,suspension RxNorm: 992726 1 Ava NASAL BID 12/24/2013 01/29/2014 Inactive fluticasone 50 mcg/a ctuation nasal spray,suspension RxNorm: 449942 1 Ava NASAL BID 11/20/2013 12/23/2013 Inactive doxycycline hyclate 100 mg capsule RxNorm: 3179240 1 Capsule(s) PO BID 10/08/2013 10/17/2013 In active doxycycline hyclate 100 mg capsule RxNorm: 0576649 capsule oral 10/08/2013 10/29/2013 Inactive fluticasone 50 mcg/a ctuation nasal spray,suspension RxNorm: 036780 spray,suspension nasl 10/08/2013 11/19/2013 Inactive fluticasone 50 mcg/a ctuation nasal spray,suspension RxNorm: 855138 1 Ava NASAL BID Nasal spray- use twice daily, one spray per nostril twice daily, after 30 minutes, rinse out nose with saline spray. 10/08/2013 10/29/2013 Inactive mirtazapine 7.5 mg t ablet RxNorm: 256481 1/2 Tablet(s) PO daily 08/30/2013 08/27/2014 Inactive lorazepam 0.5 mg tablet RxNorm: 350967 1/2 Tablet(s) PO Q8 PRN 08/21/2013 04/29/2014 Inactive Aricept 5 mg tablet RxNorm: 198454 Tablet(s) PO TAKE 1 TABLET DAILY 08/21/2013 05/28/2014 In active Plavix 75 mg tablet RxNorm: 160222 Tablet(s) PO TAKE 1 TABLET DAILY 05/24/2013 12/04/2014 In active clopidogrel 75 mg ta blet RxNorm: 806928 tablet oral 05/24/2013 05/26/2014 Inactive Plavix 75 mg tablet RxNorm: 028824 1 Tablet(s) PO daily 05/23/2013 05/23/2013 Inactive meloxicam 15 mg tablet RxNorm: 687790 tablet oral 04/26/2013 03/25/2014 Inactive Mobic 15 mg tablet RxNorm: 295730 Tablet(s) PO TAKE (1/2) TABLET DAILY. 04/26/2013 05/26/2014 In active Mobic 15 mg tablet RxNorm: 560506 1/2 Tablet(s) PO daily 04/25/2013 04/25/2013 Inactive lisinopril 20 mg tablet RxNorm: 291033 1 Tablet(s) PO 04/04/2013 03/24/2014 Inactive finasteride 5 mg tablet RxNorm: 066242 tablet oral 03/22/2013 09/01/2015 Inactive lisinopril 10 mg tablet RxNorm: 143965 1 Tablet(s) PO daily 02/14/2013 04/03/2013 Inactive donepezil 5 mg tablet RxNorm: 458380 tablet oral 02/07/2013 12/24/2013 Inactive Influenza Virus Vacc ine 0.5 mL RxNorm: IM 02/06/2013 02/06/2013 Inactive Aricept 5 mg tablet RxNorm: 444054 1 Tablet(s) PO daily 02/06/2013 08/04/2013 Inactive tamsulosin ER 0.4 mg capsule,extended release 24 hr RxNorm: 633266 capsule,extended release 24hr oral 12/21/2012 06/05/2014 Inactive Plavix 75 mg tablet RxNorm: 639822 1 Tablet(s) PO daily 12/05/2012 05/03/2013 Inactive lorazepam 0.5 mg tablet RxNorm: 472009 1/2 Tablet(s) PO Q8 PRN 11/14/2012 08/20/2013 Inactive lisinopril 10 mg tablet RxNorm: 035902 1 Tablet(s) PO daily 08/08/2012 02/03/2013 Inactive Aricept 5 mg tablet RxNorm: 376663 1 Tablet(s) PO daily 08/08/2012 02/03/2013 Inactive Plavix 75 mg tablet RxNorm: 979601 1 Tablet(s) PO daily 07/04/2012 11/30/2012 Inactive Mobic 15 mg tablet RxNorm: 818218 1/2 Tablet(s) PO daily 03/20/2012 04/13/2013 Inactive Namenda 10 mg tablet RxNorm: 865044 1 Tablet(s) PO BID 02/22/2012 04/11/2014 Inactive lorazepam 0.5 mg tablet RxNorm: 283663 1/2 Tablet(s) PO Q8 PRN 02/02/2012 11/13/2012 Inactive lisinopril 10 mg tablet RxNorm: 699133 1 Tablet(s) PO daily 01/24/2012 07/21/2012 Inactive lisinopril 10 mg tablet RxNorm: 111805 1/2 Tablet(s) PO daily 12/20/2011 01/23/2012 Inactive Aricept 5 mg tablet RxNorm: 068196 1 Tablet(s) PO daily 07/14/2011 08/06/2012 Inactive Mobic 15 mg tablet RxNorm: 228898 1 Tablet(s) PO daily 07/14/2011 03/19/2012 Inactive Bentyl 10 mg Cap RxNorm: 196915 1 Capsule(s) PO daily one pill daily and every 6 hours if needed for bowel spasms. 06/23/2011 03/20/2012 Inactive amlodipine 5 mg Tab RxNorm: 433431 2 Tablet(s) PO daily 03/08/2011 12/08/2011 Inactive ZOSTAVAX 19,400 unit Sub-Q Soln RxNorm: 6626296 SQ 02/2502/25/2011 Inactive Pneumovax 23 25 mcg/ 0.5 mL Injection RxNorm: 578412 Milliliter(s) Inj 02/16/2011 02/16/2011 In active Influenza Virus Vacc ine 0.5 mL RxNorm: IM 02/09/2011 02/09/2011 Inactive Namenda 10 mg tablet RxNorm: 527407 1 Tablet(s) PO BID 02/01/2011 02/21/2012 Inactive dicyclomine 10 mg ca psule RxNorm: 864110 capsule oral 01/20/2011 10/29/2013 Inactive Namenda 5 mg tablet RxNorm: 871776 tablet oral 01/20/2011 12/24/2013 Inactive dicyclomine 20 mg ta blet RxNorm: 082208 tablet oral 01/15/2011 10/29/2013 Inactive Flagyl 500 mg Tab RxNorm: 291343 1 Tablet(s) PO TID 01/07/2011 01/06/2011 Inactive Cipro 500 mg Tab RxNorm: 491827 1 Tablet(s) PO BID 01/07/2011 06/23/2011 Inactive Cipro 500 mg Tab RxNorm: 377569 1 Tablet(s) PO BID 01/07/2011 01/06/2011 Inactive Flagyl 500 mg Tab RxNorm: 544475 1 Tablet(s) PO TID 01/07/2011 06/23/2011 Inactive metronidazole 500 mg tablet RxNorm: 481760 tablet oral 01/07/2011 12/24/2013 Inactive sulfamethoxazole 400 mg-trimethoprim 80 mg tablet RxNorm: 724183 tablet oral 12/24/2010 03/10/2015 In active mirtazapine 15 mg ta blet RxNorm: 449699 tablet oral 11/14/2010 12/24/2013 Inactive lisinopril 10 mg tablet RxNorm: 070713 tablet oral 11/14/2010 12/24/2013 Inactive doxycycline hyclate 100 mg tablet RxNorm: 500992 tablet oral 11/04/2010 12/24/2013 Inactive diphenoxylate-atropi ne 2.5 mg-0.025 mg tablet RxNorm: 2588650 tablet oral 11/03/2010 10/29/2013 In active ciprofloxacin 500 mg tablet RxNorm: 001479 tablet oral 11/01/2010 10/29/2013 Inactive aspirin 81 mg Cap, D elayed Release RxNorm: 110149 1 Capsule(s) PO daily No Start Date Active Allergy Relief (ceti rizine) oral RxNorm: 320254 oral No S tart Date Active Vitamin D 1,000 unit Tab RxNorm: 344130 1 Tablet(s) PO daily No Start Date Active Senior Vitamin Tab RxNorm: 1 Tablet(s) PO daily No Start Date Active sulfamethoxazole 500 mg Tab RxNorm: 570651 1/2 Tablet(s) PO daily No Start Date 12/24/2013 Inactive Plavix 75 mg Tab RxNorm: 207551 1 Tablet(s) PO daily No Start Date 01/26/2011 Inactive hydrocodone 5 mg-alexey taminophen 325 mg tablet RxNorm: 103717 1 Tablet(s) PO Q6 as needed No Start Date 06/05/2014 Inactive Proscar 5 mg Tab RxNorm: 116826 1 Tablet(s) PO daily No Start Date 09/01/2015 Inactive Plavix 75 mg tablet RxNorm: 235686 1 Tablet(s) PO daily No Start Date 07/03/2012 Inactive albuterol sulfate 2. 5 mg/0.5 mL solution for nebulization RxNorm: 713232 1 inhale INH Q4H as needed No Start Date 05/20/2014 Inactive amlodipine 5 mg Tab RxNorm: 797070 1 Tablet(s) PO daily No Start Date 03/07/2011 Inactive Namenda 5 mg Tab RxNorm: 350053 1 Tablet(s) PO daily No Start Date 06/23/2011 Inactive fluocinonide 0.05 % Ointment RxNorm: 499995 1 TOP BID PRN No Start Date 12/24/2013 Inactive amlodipine 5 mg tablet RxNorm: 855667 1 Tablet(s) PO daily No Start Date 09/01/2014 Inactive lisinopril Oral RxNorm: Oral No Start Date 12/08/2011 Inactive simvastatin 20 mg Tab RxNorm: 724222 1 Tablet(s) PO daily No Start Date 06/06/2014 Inactive Bentyl 20 mg Tab RxNorm: 451835 1 Tablet(s) PO Q6 PRN No Start Date 06/23/[address] Quintero Bentyl 10 mg Cap RxNorm: 668316 1 Capsule(s) PO BID No Start Date 06/22/2011 Inactive Plavix 75 mg Tab RxNorm: 054402 1 Tablet(s) PO every other day No Start Date 08/24/2011 Inactive lorazepam 0.5 mg tablet RxNorm: 027183 1/2 Tablet(s) PO Q8 PRN No Start Date 02/01/2012 Inactive lisinopril 10 mg tablet RxNorm: 932952 1 Tablet(s) PO daily No Start Date 12/19/2011 Inactive Flomax 0.4 mg 24 hr Cap RxNorm: 596144 1 Capsule(s) PO daily No Start Date 05/28/2014 Inactive Aricept 5 mg Tab RxNorm: 711132 1 Tablet(s) PO daily No Start Date 07/13/2011 Inactive Levsin 0.125 mg tablet RxNorm: 9739315 1 Tablet(s) PO QID as needed FOR ABD REJI N No Start Date 11/04/2014 Inactive mirtazapine 7.5 mg t ablet RxNorm: 692984 1/2 Tablet(s) PO daily No Start Date 08/29/2013 Inactive Mobic 15 mg Tab RxNorm: 443796 1 Tablet(s) PO daily No Start Date 07/13/2011 Inactive Medication Administered Medication Codes Instruc tions Start Date Status Influenza Virus Vaccine 0.5 mL RxNorm: 02/06/2013 No longer Active ZOSTAVAX 19,400 unit Sub-Q Soln RxNo rm: 1908207 02/25/2011 No longer A ctive Pneumovax 23 25 mcg/0.5 mL Injection RxNorm: 761807 Milliliter 02/16/2011 No longer Active Influenza Virus [...] BODY FLUID 02/18/2016 Uric Acid Body Fluid 233145 URIC ACID-FLUID 4.3 mg/dL 02/18/2016 Metabolic Ord15 [...] Ord15 CALCIUM 9.1 mg/dL 02/05/2016 Comp Metabolic Otj112 NA 129 mEq/L 10/08/2015 Comp Metabolic Qgw046 K 4.7 mEq/L 10/08/2015 Comp Metabolic Cic685 CL 98 mEq/L 10/08/2015 Comp Metabolic Ync026 CO2 28.0 mEq/L 10/08/2015 Comp Metabolic Dns935 AN ION GAP 8 10/08/2015 Comp Metabolic Tru074 GL UCOSE 84 mg/dL 10/08/2015 Comp Metabolic Jym729 Cr eat 1.3 mg/dL 10/08/2015 Comp Metabolic Skx809 eG FR 56 ml/min/1.73m2 10/07 Comp Metabolic Amc099 BUN 23 mg/dL 10/08/2015 Comp Metabolic Mwb430 B/ C Ratio 17.8 Ratio 10/08/2015 Comp Metabolic Jhf952 CA LCIUM 9.3 mg/dL 10/08/2015 Comp Metabolic Dwe606 AL K PHOS 68 U/L 10/08/2015 Comp Metabolic Mbc640 T(SGOT) 24 U/L 10/08/2015 Comp Metabolic Egm467 AL T(SGPT) 15 U/L 10/08/2015 Comp Metabolic Qtz216 BI LI T 0.5 mg/dL 10/08/2015 Comp Metabolic Gan050 AL BUMIN 4.0 g/dL 10/08/2015 Comp Metabolic Wim356 TP RO 5.9 g/dL 10/08/2015 Comp Metabolic Vom821 GL OB 1.9 g/dL 10/08/2015 Comp Metabolic Pow725 A/ G Ratio 2.1 Ratio 10/08/2015 Comp Metabolic Lou375 Os mo 262 mOsmo 10/08/2015 Lipid Ord30 [...] Ord30 C/HDL 2.3 Ratio 05/07/2015 Comp Metabolic Inm178 NA 132 mEq/L 05/07/2015 Comp Metabolic Zdx951 K 4.4 mEq/L 05/07/2015 Comp Metabolic Pyh829 CL 97 mEq/L 05/07/2015 Comp Metabolic Yky562 CO2 30.0 mEq/L 05/07/2015 Comp Metabolic Vcj732 AN ION GAP 9 05/07/2015 Comp Metabolic Itq052 GL UCOSE 78 mg/dL 05/07/2015 Comp Metabolic Ueq968 Cr eat 1.2 mg/dL 05/07/2015 Comp Metabolic Iqc656 eG FR 60 ml/min/1.73m2 05/07 Comp Metabolic Qup726 BUN 25 mg/dL 05/07/2015 Comp Metabolic Uup402 B/ C Ratio 20.3 Ratio 05/07/2015 Comp Metabolic Mez236 CA LCIUM 9.6 mg/dL 05/07/2015 Comp Metabolic Aum155 AL K PHOS 70 U/L 05/07/2015 Comp Metabolic Ruh197 T(SGOT) 27 U/L 05/07/2015 Comp Metabolic Wrb814 AL T(SGPT) 20 U/L 05/07/2015 Comp Metabolic Txt229 BI LI T 0.4 mg/dL 05/07/2015 Comp Metabolic The001 AL BUMIN 4.0 g/dL 05/07/2015 Comp Metabolic Mtq509 TP RO 5.8 g/dL 05/07/2015 Comp Metabolic Nwl678 GL OB 1.8 g/dL 05/07/2015 Comp Metabolic Tkd584 A/ G Ratio 2.3 Ratio 05/07/2015 Comp Metabolic Use112 Os mo 268 mOsmo 05/07/2015 Cbc With [...] hTSH II 4.07 uIU/mL 05/07/2015 Comp Metabolic Uun893 NA 134 mEq/L 12/10/2014 Comp Metabolic Ffj837 K 4.8 mEq/L 12/10/2014 Comp Metabolic Mnn272 CL 101 mEq/L 12/10/2014 Comp Metabolic Dts877 CO2 30.0 mEq/L 12/10/2014 Comp Metabolic Fqw660 AN ION GAP 8 12/10/2014 Comp Metabolic Pui021 GL UCOSE 85 mg/dL 12/10/2014 Comp Metabolic Nsz809 Cr eat 1.2 mg/dL 12/10/2014 Comp Metabolic Dvv826 eG FR 65 ml/min/1.73m2 12/10 Comp Metabolic Riz602 BUN 25 mg/dL 12/10/2014 Comp Metabolic Wmg598 B/ C Ratio 21.7 Ratio 12/10/2014 Comp Metabolic Hyf860 CA LCIUM 9.5 mg/dL 12/10/2014 Comp Metabolic Wqe120 AL K PHOS 76 U/L 12/10/2014 Comp Metabolic Eem522 T(SGOT) 27 U/L 12/10/2014 Comp Metabolic Dud646 AL T(SGPT) 18 U/L 12/10/2014 Comp Metabolic Qeo479 BI LI T 0.5 mg/dL 12/10/2014 Comp Metabolic Nxz351 AL BUMIN 4.1 g/dL 12/10/2014 Comp Metabolic Zbh954 TP RO 5.7 g/dL 12/10/2014 Comp Metabolic Hbg623 GL OB 1.6 g/dL 12/10/2014 Comp Metabolic Kqp797 A/ G Ratio 2.6 Ratio 12/10/2014 Comp Metabolic Cyg221 Os mo 272 mOsmo 12/10/2014 B12 Iic905 B12 1011.00 pg/ml 12/10/2014 Lipid Ord30 CHOL [...] Differential Ord2 RDW 14.3 % 12/10/2014 CBC 5974683 WBC 4.1 10e9/L 02/19/2013 CBC 5398257 RBC 4.39 10e12/L 02/19/2013 CBC 2563217 HGB 14.1 g/dL 02/19/2013 CBC 2121291 HCT DET 41.0 % 02/19/2013 CBC 4593612 MCV 93.4 fL 02/19/2013 CBC 2955650 MCH 32.1 pg 02/19/2013 CBC 7506165 MCHC 34.4 g/dL 02/19/2013 CBC 0456683 PLT 151 10e9/L 02/19/2013 CBC 2059555 MPV 11.8 fL 02/19/2013 CBC 8747692 YOVANNY % 63.2 % 02/19/2013 CBC 7909250 LY % 22.9 % 02/19/2013 CBC 8437948 MON % 11.5 % 02/19/2013 CBC 2263699 EOS % 2.2 % 02/19/2013 CBC 9161125 BASO % 0.2 % 02/19/2013 CBC 8081583 RDW 13.8 % 02/19/2013 CBC 6291530 ABS YOVANNY 2.59 10e9/L 02/19/2013 CBC 0937103 ABS LYMPH 0.94 10e9/L 02/19/2013 CBC 9238091 ABS MONO 0.47 10e9/L 02/19/2013 CBC 4321168 ABS EOS 0.09 10e9/L 02/19/2013 CBC 0184258 ABS BASO 0.01 10e9/L 02/19/2013 CBC 5997003 RDW-SD 46.0 fL 02/19/2013 TSH 5774745 TSH 2.094 uIU/ML 02/19/2013 FREE T4 3279915 FREE T4 1.18 NG/DL 02/19/2013 GFR CALC 3936981 GFR AA >60 ML/MIN 02/19/2013 GFR CALC 8086916 GFR NON -AA >60 ML/MIN 02/19/2013 CHEM 14 0635806 AST 30 U/L 02/19/2013 CHEM 14 4102843 ALT 19 IU/L 02/19/2013 CHEM 14 3699757 BUN 21 MG/DL 02/19/2013 CHEM 14 7626621 ALBUMIN 4.4 GM/DL 02/19/2013 CHEM 14 6518596 CHLORIDE 94 MMOL/L 02/19/2013 CHEM 14 5193299 BILI TOT 0.5 MG/DL 02/19/2013 CHEM 14 2438104 ALK PHOS 75 U/L 02/19/2013 CHEM 14 [id number] SODIUM 133 MMOL/L 02/19/2013 CHEM 14 [id number] CREATINI NE 1.07 MG/DL 02/19/2013 CHEM 14 [id number] CALCIUM 9.6 MG/DL 02/19/2013 CHEM 14 [id number] POTASSIUM 4.6 MMOL/L 02/19/2013 CHEM 14 [id number] PROT TOT 6.1 GM/DL 02/19/2013 CHEM 14 [id number] GLUCOSE 94 MG/DL 02/19/2013 CHEM 14 [id number] BICARB 31 MMOL/L 02/19/2013 CHEM 14 [id number] ANION GAP 8 MEQ/L 02/19/2013 UA 65536 Specific [place] 1.015 DateTime(Free Text in Aprima ) UA 52901 PH 6 DateTime(Free Text in Aprima ) UA 92965 GLUCOSE neg DateTime(Free Text in Aprima ) UA 25368 Protein neg DateTime(Free Text in Aprima ) UA 28659 Blood neg DateTime(Free Text in Aprima ) UA 01928 Bilirubin neg DateTime(Free Text in Aprima ) UA 57700 Ketones neg DateTime(Free Text in Aprima ) UA 16431 Urobilinogen neg DateTime(Free Text in Aprima ) UA 51150 Nitrite neg DateTime(Free Text in Aprima ) UA 77860 Leukocytes neg DateTime(Free Text in Aprima ) Review of Systems System Result Effective [...] benign 10/30/2013 None Full Exam - General 1995 Musculoskeletal [...] tenderness 10/08/2013 None Full Exam - General 1995 Abdomen abdominal exam Overall: normal bowel sounds 10/08/2013 None Full Exam - General 1995 Musculoskeletal spine, ribs and pelvis Overall: ribs benign 10/08/2013 None Full Exam - General 1995 Musculoskeletal spine, ribs and pelvis Overall: spine benign 10/08/2013 None Full Exam - General 1994 Musculoskeletal spine, ribs and pelvis Overall: sacroiliac joint benign 10/08/2013 None Full Exam - General 1995 [...] posture 04/04/2013 None Full Exam - General 1995 [...] 10/16/2012 None Full Exam - General 1995 Abdomen abdominal exam Overall: no tenderness 10/16/2012 [...] retractions 06/19/2012 None Full Exam - General 1995 Respiratory respiratory effort/rhythm Overall: normal rate 06/19/2012 [...] 1995 Abdomen abdominal exam Overall: no tenderness 12/09/2011 [...] alert 1 memory test performed today - UMS exam - score Full Exam - General [...] Procedure Codes Date DRAIN/INJECT JOINT/B URSA CPT-4: 60913Ydkfawq 02/17/2016 IMMUNIZATION ADMIN CPT-4: 25627Dvdgwif 05/06/2015 PNEUMOCOCCAL VACC 13 TIFFANIE IM Formatting Model/CDA Sections, Assigned to/Celia Minaya SNOMED CT: 54193972 CPT-4: 72316Pfoxhfg 05/06/2015 ADMIN INFLUENZA VIRU S VAC CPT-4: I0421Talpcrs 02/19/2015 FLU VACC 4 TIFFANIE 3 YRS PLUS IM Formatting Model/CDA Sections, Assigned to SNOMED CT: 92534358 CPT-4: 18946Ohdfpfh 02/19/2015 URINALYSIS NONAUTO W /O SCOPE CPT-4: 40354Dnsajrq 05/23/2014 ADMIN INFLUENZA VIRU S VAC CPT-4: W2083Ohawaxl 03/26/2014 FLU VAC NO PRSV 4 VA L 3 YRS+ Assigned to/Celia Minaya CPT-4: 86700Xtxsaua 03/26/2014 PRESCRIP TRANSMIT A ERX SY CPT-4: U4202Binqdco 04/04/2013 ROUTINE VENIPUNCTURE CPT-4: 86010Jbbflaj 02/19/2013 ADMIN INFLUENZA VIRU S VAC CPT-4: B6345Qgvhyba 02/06/2013 FLULAVAL VACC, 3 YRS & >, IM CPT-4: Z1089Walkpkf 02/06/2013 27962 EST. PATIENT, LEVEL IV CPT-4: 15033Aacdjxn 06/19/2012 PRESCRIP TRANSMIT A ERX SY CPT-4: F9489Qfmzgvs 06/19/2012 PRESCRIP TRANSMIT A ERX SY CPT-4: Z0742Nkaxxyk 03/20/2012 PRESCRIP TRANSMIT A ERX SY CPT-4: T1307Zuucagv 06/23/2011 IMMUNIZATION ADMIN CPT-4: 12534Vtjpzpa 02/25/2011 ZOSTER VACC SC (No lloyd stephens, patient supplied vaccine) CPT-4: 93363OHLmbaprh 02/25/2011 ADMIN PNEUMOCOCCAL V ACCINE SNOMED CT: 75657720 CPT-4: P7700Rhouwgq 02/16/2011 Pneumococcal Polysac charide Vaccine, 23-Valent, Ad CPT-4: 36808Tgvdcuc 02/16/2011 ADMIN INFLUENZA VIRU S VAC CPT-4: C1616Qmnuppb 02/09/2011 FLULAVAL VACC, 3 YRS & >, IM CPT-4: M3717Gqjkpnq 02/09/2011 PRESCRIP TRANSMIT A ERX SY CPT-4: L4904Xlxcktu 02/01/2011 URINALYSIS NONAUTO W /O SCOPE CPT-4: 02164Iyzqnaa 01/27/2011 Vital Signs Date Vital 11/18/2016 Blood Pressure 1: 120/60 Code: 8480-6 BMI: 20.7 Code: 93204-9 Heart Rate 1: 74 bpm Height: 5'9" SpO2: 95% Weight: 140 lbs 08/23/2016 Blood Pressure 1: 118/68 Code: 8480-6 BMI: 20.8 Code: 80158-1 Heart Rate 1: 54 bpm Height: 5'9" SpO2: 97% Weight: 141 lbs 04/26/2016 Blood Pressure 1: 108/64 Code: 8480-6 BMI: 21.0 Code: 35098-1 Heart Rate 1: 62 bpm Height: 5'9" SpO2: 95% Weight: 142 lbs 02/17/2016 Blood Pressure 1: 138/80 Code: 8480-6 BMI: 20.2 Code: 34251-6 Heart Rate 1: 76 bpm Height: 5'9" SpO2: 97% Weight: 137 lbs 02/09/2016 Blood Pressure 1: 140/76 Code: 8480-6 BMI: 20.2 Code: 67061-4 Heart Rate 1: 72 bpm Height: 5'9" SpO2: 96% Weight: 137 lbs 02/03/2016 Blood Pressure 1: 136/80 Code: 8480-6 BMI: 20.7 Code: 31543-2 Heart Rate 1: 86 bpm Height: 5'9" SpO2: 96% Weight: 140 lbs 01/26/2016 Blood Pressure 1: 144/78 Code: 8480-6 BMI: 20.7 Code: 21917-5 Heart Rate 1: 73 bpm Height: 5'9" SpO2: 97% Temperature: 37.0 (C ) / 98.6 (F) Weight: 140 lbs 01/21/2016 Blood Pressure 1: 116/62 Code: 8480-6 BMI: 20.4 Code: 94790-0 Heart Rate 1: 66 bpm Height: 5'9" SpO2: 97% Weight: 138 lbs 12/29/2015 Blood Pressure 1: 130/74 Code: 8480-6 BMI: 20.4 Code: 74522-8 Heart Rate 1: 51 bpm Height: 5'9" SpO2: 98% Weight: 138 lbs 09/02/2015 Blood Pressure 1: 126/60 Code: 8480-6 BMI: 22.3 Code: 23429-9 Heart Rate 1: 55 bpm Height: 5'9" SpO2: 96% Weight: 151 lbs 05/06/2015 Blood Pressure 1: 132/72 Code: 8480-6 BMI: 21.0 Code: 86213-4 Heart Rate 1: 63 bpm Height: 5'9" SpO2: 97% Weight: 142 lbs 03/05/2015 Blood Pressure 1: 130/68 Code: 8480-6 BMI: 21.0 Code: 44079-1 Heart Rate 1: 61 bpm Height: 5'9" SpO2: 96% Weight: 142 lbs 12/04/2014 Blood Pressure 1: 122/64 Code: 8480-6 BMI: 21.3 Code: 33832-4 Heart Rate 1: 72 bpm Height: 5'9" Weight: 144 lbs 09/24/2014 Blood Pressure 1: 142/80 Code: 8480-6 BMI: 20.4 Code: 05628-7 Heart Rate 1: 80 bpm Height: 5'9" Weight: 138 lbs 09/09/2014 Blood Pressure 1: 122/74 Code: 8480-6 BMI: 20.5 Code: 74083-6 Heart Rate 1: 64 bpm Height: 5'9" Weight: 139 lbs 07/26/2014 Blood Pressure 1: 136/82 Code: 8480-6 BMI: 20.4 Code: 51636-3 Heart Rate 1: 87 bpm Height: 5'9" SpO2: 92% Weight: 138 lbs 07/10/2014 Blood Pressure 1: 130/74 Code: 8480-6 BMI: 21.1 Code: 07422-6 Heart Rate 1: 64 bpm Height: 5'9" Weight: 143 lbs 06/06/2014 Blood Pressure 1: 142/88 Code: 8480-6 BMI: 20.4 Code: 62386-6 Heart Rate 1: 68 bpm Height: 5'9" Weight: 138 lbs 05/29/2014 Blood Pressure 1: 108/72 Code: 8480-6 BMI: 20.5 Code: 48242-6 Heart Rate 1: 60 bpm Height: 5'9" Weight: 139 lbs 05/20/2014 Blood Pressure 1: 140/72 Code: 8480-6 BMI: 21.6 Code: 72676-3 Heart Rate 1: 60 bpm Height: 5'9" SpO2: 98% Temperature: 36.2 (C ) / 97.2 (F) Weight: 146 lbs 03/25/2014 Blood Pressure 1: 128/60 Code: 8480-6 BMI: 21.4 Code: 15483-7 Heart Rate 1: 62 bpm Height: 5'9" Weight: 145 lbs 02/08/2014 Blood Pressure 1: 136/82 Code: 8480-6 BMI: 21.3 Code: 92904-9 Heart Rate 1: 68 bpm Height: 5'9" Weight: 144 lbs 12/24/2013 Blood Pressure 1: 122/76 Code: 8480-6 BMI: 21.6 Code: 17659-7 Heart Rate 1: 58 bpm Height: 5'9" Weight: 146 lbs 11/20/2013 Blood Pressure 1: 112/62 Code: 8480-6 BMI: 20.7 Code: 11943-4 Heart Rate 1: 56 bpm Height: 5'9" Weight: 140 lbs 10/30/2013 Blood Pressure 1: 130/68 Code: 8480-6 BMI: 20.1 Code: 02266-7 Heart Rate 1: 68 bpm Height: 5'9" SpO2: 96% Weight: 136 lbs 10/08/2013 Blood Pressure 1: 128/72 Code: 8480-6 BMI: 20.8 Code: 18432-5 Heart Rate 1: 60 bpm Height: 5'9" Temperature: 36.6 (C ) / 97.8 (F) Weight: 141 lbs 06/18/2013 Blood Pressure 1: 124/78 Code: 8480-6 BMI: 20.8 Code: 78748-2 Heart Rate 1: 64 bpm Height: 5'9" Weight: 141 lbs 04/04/2013 Blood Pressure 1: 138/60 Code: 8480-6 BMI: 20.8 Code: 91899-7 Heart Rate 1: 56 bpm Height: 5'9" Weight: 141 lbs 02/19/2013 Blood Pressure 1: 152/74 Code: 8480-6 BMI: 21.0 Code: 08578-4 Heart Rate 1: 60 bpm Height: 5'9" Weight: 142 lbs 10/16/2012 Blood Pressure 1: 122/70 Code: 8480-6 BMI: 20.8 Code: 26206-7 Heart Rate 1: 64 bpm Height: 5'9" Weight: 141 lbs 06/19/2012 Blood Pressure 1: 120/72 Code: 8480-6 BMI: 21.1 Code: 29035-7 Heart Rate 1: 60 bpm Height: 5'9" Weight: 143 lbs 03/20/2012 Blood Pressure 1: 114/76 Code: 8480-6 Heart Rate 1: 60 bpm Respiratory Rate: 16 bpm Weight: 143 lbs 01/24/2012 Blood Pressure 1: 134/70 Code: 8480-6 Heart Rate 1: 64 bpm Weight: 143 lbs 12/20/2011 Blood Pressure 1: 98/72 Code: 8480-6 BMI: 21.1 Code: 21303-4 Heart Rate 1: 60 bpm Height: 5'9" Respiratory Rate: 16 bpm Weight: 143 lbs 12/09/2011 Blood Pressure 1: 110/60 Code: 8480-6 Heart Rate 1: 66 bpm SpO2: 98% Weight: 141 lbs 08/25/2011 Blood Pressure 1: 112/70 Code: 8480-6 BMI: 20.8 Code: 88376-3 Heart Rate 1: 54 bpm Height: 5'9" Respiratory Rate: 16 bpm Weight: 141 lbs 06/23/2011 Blood Pressure 1: 126/64 Code: 8480-6 Heart Rate 1: 60 bpm Respiratory Rate: 16 bpm Weight: 142 lbs 04/19/2011 Blood Pressure 1: 124/64 Code: 8480-6 BMI: 21.1 Code: 01713-8 Heart Rate 1: 64 bpm Height: 5'9" Respiratory Rate: 16 bpm Weight: 143 lbs 03/23/2011 Blood Pressure 1: 137/71 Code: 8480-6 Heart Rate 1: 57 bpm 03/08/2011 Blood Pressure 1: 154/70 Code: 8480-6 BMI: 20.8 Code: 60476-3 Heart Rate 1: 60 bpm Height: 5'9" Respiratory Rate: 16 bpm Weight: 141 lbs 03/01/2011 Blood Pressure 1: 178/80 Code: 8480-6 Blood Pressure 2: 168/70 Code: 8480-6 BMI: 24.1 Code: 91125-8 Heart Rate 1: 60 bpm Height: 5'9" Respiratory Rate: 16 bpm Weight: 163 lbs 02/01/2011 Blood Pressure 1: 162/84 Code: 8480-6 Heart Rate 1: 60 bpm Respiratory Rate: 16 bpm Weight: 144 lbs 01/27/2011 Blood Pressure 1: 138/54 Code: 8480-6 BMI: 21.1 Code: 46942-4 Heart Rate 1: 68 bpm Height: 5'9" Respiratory Rate: 16 bpm Weight: 143 lbs 01/26/2011 Blood Pressure 1: 148/86 Code: 8480-6 BMI: 21.3 Code: 74847-3 Heart Rate 1: 74 bpm Height: 5'9" Weight: 144 lbs 01/15/2011 Blood Pressure 1: 136/76 Code: 8480-6 BMI: 20.5 Code: 66317-6 Heart Rate 1: 70 bpm Height: 5'10" Weight: 141 lbs 01/06/2011 Blood Pressure 1: 148/72 Code: 8480-6 BMI: 20.2 Code: 32232-3 Heart Rate 1: 72 bpm Height: 5'10" [...] cough 01/26/2016 None cough Location in the roat 01/21/2016 None cough Quality dry 01/21/2016 [...] Findings Denies weakness 12/09/2011 None hypertension Quality [facility] 08/25/2011 None hypertension Onset and Resolution [...] s cardiac disease 08/25/2011 None hypertension Quality [facility] 06/23/2011 None hypertension Onset and Resolution [...] 01/06/2011 October 27-November 3; also Augu st 9- abdominal pain Radiating the inguinal [...] Encounters Encounter Performer Loca tion Codes Date ([id number]) 87555 EST. P ATIENT, LEVEL III Diagnosis: Cough[ICD10: R05] Diagnosis: Bronchitis, not specified as acute or chronic[ICD10: J40] Diagnosis: Candidal esophagitis[ICD10: B37.81] Ale Carlos MD, [facility] CPT- 4: 96586 11/18/2016 [id number] 47452 EST. P ATIENT, LEVEL IV Diagnosis: Essential (primary) hypertension[ICD10: I10] Diagnosis: Mild cognitive impairment, so stated[ICD10: G31.84] Ale Carlos MD, C CPT-4: 92648 08/23/2016 [id number] 55690 EST. [facility]: Essential (primary) hypertension[ICD10: I10] Ale Carlos MD, C CPT-4: 72338 04/26/2016 ([id number]) Miscellaneou s no charge Diagnosis: Olecranon bursitis, right elbow[ICD10: M70.21] Nelly Carlos MD, [facility] CPT-4: 32173 02/09/2016 ([id number]) 68688 EST. P ATIENT, LEVEL III Diagnosis: Olecranon bursitis, right elbow[ICD10: M70.21] Nelly Carlos MD, [facility] CPT-4: 15005 02/03/2016 ([id number]) 75011 EST. P ATIENT, LEVEL III Diagnosis: Generalized abdominal tenderness[ICD10: R10.817] Ale Carlos MD, [facility] CPT-4: 52035 01/26/2016 49901 EST. PATIENT, LEVEL IV Diagnosis: Other allergic rhinitis[ICD10: J30.89] Ruchi Carlos MD, [facility] CPT-4: 23119 01/21/2016 ([id number]) 00631 EST. P ATIENT, LEVEL IV Diagnosis: Essential (primary) hypertension[ICD10: I10] Diagnosis: Hypo-osmolality and hyponatremia[ICD10: E87.1] Ale Carlos MD, [facility] CPT-4: 00608 12/29/2015 ([id number]) 13896 EST. P ATIENT, LEVEL IV Diagnosis: Essential (primary) hypertension[ICD10: I10] Diagnosis: Mild cognitive impairment, so stated[ICD10: G31.84] Ale Carlos MD, [facility] CPT-4: 18414 09/02/2015 ([id number]) 70920 EST. P ATIENT, LEVEL IV Diagnosis: Mixed hyperlipidemia[ICD10: E78.2] Diagnosis: Generalized anxiety disorder[ICD10: F41.1] Diagnosis: Mild cognitive impairment, so stated[ICD10: G31.84] Diagnosis: Essential (primary) hypertension[ICD10: I10] Diagnosis: Encounter for immunization[ICD10: Z23] Ale Carlos MD, [facility] CPT-4: 59540 05/06/2015 ([id number]) 10297 EST. 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 P ATIENT, LEVEL IV Diagnosis: ESSENTIAL HYPERTENSION[ICD9: 401.9] Diagnosis: GENERALIZED ANXIETY DISEASE[ICD9: 300.02] Diagnosis: MILD COGNITIVE IMPAIREMT[ICD9: 331.83] Diagnosis: IRRITABLE COLON[ICD9: 564.1] Ale Carlos MD, [facility] CPT-4: 39357 12/04/2014 ([id number]) 38802 EST. P ATIENT, LEVEL IV Diagnosis: Abdominal pain[ICD9: 789.00] Diagnosis: GENERALIZED ANXIETY DISEASE[ICD9: 300.02] Diagnosis: Hyponatremia[ICD9: 276.1] Diagnosis: ESSENTIAL HYPERTENSION[ICD9: 401.9] Nelly Carlos MD, [facility] CPT-4: 65590 09/24/2014 ([id number]) 00861 EST. P ATIENT, LEVEL IV Diagnosis: ESSENTIAL HYPERTENSION[ICD9: 401.9] Diagnosis: Osteoarthritis[ICD9: 715.90] Diagnosis: Mild cognitive impairment with memory loss[ICD9: 331.83] Ale Carlos MD, [facility] CPT-4: 54264 09/09/2014 ([id number]) 17539 EST. P ATIENT, LEVEL III Diagnosis: GENERALIZED ANXIETY DISEASE[ICD9: 300.02] Diagnosis: Depression[ICD9: 311] Ale Carlos MD, [facility] CPT-4: 25965 07/26/2014 ([id number]) 16494 EST. P ATIENT, LEVEL IV Diagnosis: ESSENTIAL HYPERTENSION[ICD9: 401.9] Diagnosis: GENERALIZED ANXIETY DISEASE[ICD9: 300.02] Diagnosis: MILD COGNITIVE IMPAIREMT[ICD9: 331.83] Ale Carlos MD, [facility] CPT-4: 40345 07/10/2014 ([id number]) 87060 EST. P ATIENT, LEVEL IV Diagnosis: Dizziness[ICD9: 780.4] Diagnosis: GENERALIZED ANXIETY DISEASE[ICD9: 300.02] Diagnosis: Depression[ICD9: 311] Diagnosis: ESSENTIAL HYPERTENSION[ICD9: 401.9] Diagnosis: Urinary frequency[ICD9: 788.41] Ale Carlos MD, [facility] CPT-4: 89100 06/06/2014 ([id number]) 74730 EST. P ATIENT, LEVEL IV Diagnosis: ESSENTIAL HYPERTENSION[ICD9: 401.9] Diagnosis: GENERALIZED ANXIETY DISEASE[ICD9: 300.02] Diagnosis: Mild cognitive impairment with memory loss[ICD9: 331.83] Ale Carlos MD, [facility] CPT-4: 17081 05/29/2014 ([id number]) 17839 EST. P ATIENT, LEVEL IV Diagnosis: Pneumonia[ICD9: 486] Diagnosis: COUGH[ICD9: 786.2] Diagnosis: Hyponatremia[ICD9: 276.1] Diagnosis: ALLERGIC RHINITIS[ICD9: 477.9] Ale Carlos MD, [facility] CPT-4: 01639 05/20/2014 ([id number]) 81568 EST. P ATIENT, LEVEL III Diagnosis: ESSENTIAL HYPERTENSION[ICD9: 401.9] Diagnosis: Cough[ICD9: 786.2] Ale Carlos MD, [facility] CPT-4: 19987 03/25/2014 ([id number]) 56259 EST. P ATIENT, LEVEL III Diagnosis: COUGH[ICD9: 786.2] Diagnosis: ALLERGIC RHINITIS[ICD9: 477.9] Nelly Carlos MD, [facility] CPT- 4: 34884 02/08/2014 ([id number]) 02836 EST. P ATIENT, LEVEL III Diagnosis: ESSENTIAL HYPERTENSION[ICD9: 401.9] Diagnosis: Nasal congestion[ICD9: 478.19] Ale Carlos MD, [facility] CPT-4: 34680 12/24/2013 ([id number]) 80897 EST. P ATIENT, LEVEL III Diagnosis: Seasonal allergies[ICD9: 477.9] Diagnosis: Nasal congestion[ICD9: 478.19] Diagnosis: ABNORMAL LOSS OF WEIGHT[ICD9: 783.21] Ale Carlos MD, [facility] CPT-4: 64997 11/20/2013 ([id number]) 39857 EST. P ATIENT, LEVEL III Diagnosis: ABNORMAL LOSS OF WEIGHT[ICD9: 783.21] Diagnosis: MALAISE AND FATIGUE[ICD9: 780.79] Diagnosis: Hyponatremia[ICD9: 276.1] Nelly Carlos MD, [facility] CPT- 4: 26800 10/30/2013 ([id number]) 41116 EST. P ATIENT, LEVEL III Diagnosis: Acute maxillary sinusitis[ICD9: 461.0] Diagnosis: COUGH[ICD9: 786.2] Ale Carlos MD, [facility] CPT-4: 28020 10/08/2013 ([id number]) 96288 EST. P ATIENT, LEVEL IV Diagnosis: ESSENTIAL HYPERTENSION[SNOMED: 17086385] Diagnosis: GENERALIZED ANXIETY DISEASE[ICD9: 300.02] Diagnosis: OSTEOARTH NOS-UNSPEC[ICD9: 715.90] Diagnosis: Coronary artery disease[ICD9: 414.00] Ale Carlos MD, [facility] CPT-4: 88459 06/18/2013 ([id number]) 10798 EST. P ATIENT, LEVEL III Diagnosis: ESSENTIAL HYPERTENSION[SNOMED: 36350722] Ale Carlos MD, [facility] CPT-4: 30007 04/04/2013 ([id number]) 99871 EST. P ATIENT, LEVEL IV Diagnosis: ESSENTIAL HYPERTENSION[SNOMED: 24921210] Diagnosis: Leukopenia[ICD9: 288.50] Diagnosis: Encounter for long-term (current) use of other medications[ICD9: V58.69] Ale Carlos MD, [facility] CPT-4: 81080 02/19/2013 ([id number]) 73824 EST. P ATIENT, LEVEL IV Diagnosis: ESSENTIAL HYPERTENSION[SNOMED: 63118677] Diagnosis: MILD COGNITIVE IMPAIREMT[ICD9: 331.83] Ale Carlos MD, [facility] CPT-4: 28396 10/16/2012 ([id number]) 04951 EST. P ATIENT, LEVEL IV Diagnosis: ESSENTIAL HYPERTENSION[SNOMED: 15363480] Diagnosis: GENERALIZED ANXIETY DISEASE[ICD9: 300.02] Diagnosis: IRRITABLE COLON[ICD9: 564.1] Ale Carlos MD, [facility] CPT-4: 83281 03/20/2012 42302 EST. PATIENT, LEVEL IV Diagnosis: ESSENTIAL HYPERTENSION[SNOMED: 20779438] Diagnosis: Osteoarthritis[ICD9: 715.90] Diagnosis: HYPERLIPIDEMIA[ICD9: 272.4] Ale Carlos MD, [facility] CPT-4: 70909 01/24/2012 95650 EST. PATIENT, LEVEL IV Diagnosis: ESSENTIAL HYPERTENSION[SNOMED: 19351943] Diagnosis: BPH W URINARY OBS/LUTS[ICD9: 600.01] Ale Carlos MD, [facility] CPT-4: 34125 12/20/2011 ([id number]) 84541 EST. P ATIENT, LEVEL III Diagnosis: Lump in the groin[ICD9: 789.30] Ale Carlos MD [facility] CPT-4: 84195 12/09/2011 ([id number]) 17047 EST. P ATIENT, LEVEL IV Diagnosis: ESSENTIAL HYPERTENSION[SNOMED: 96990780] Diagnosis: Mild cognitive impairment[ICD9: 331.83] Ale Carlos MD [facility] CPT-4: 15799 08/25/2011 ([id number]) 23175 EST. P ATIENT, LEVEL IV Diagnosis: ESSENTIAL HYPERTENSION[SNOMED: 80983902] Diagnosis: GENERALIZED ANXIETY DISEASE[ICD9: 300.02] Diagnosis: MILD COGNITIVE IMPAIREMT[ICD9: 331.83] Diagnosis: IRRITABLE COLON[ICD9: 564.1] Ale Carlos MD, [facility] CPT-4: 68149 06/23/2011 ([id number]) 94418 EST. 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 PATIENT, LEVEL I Diagnosis: ESSENTIAL HYPERTENSION[SNOMED: 58928779] Ale Carlos MD, C CPT-4: 93035 03/23/2011 88829 EST. PATIENT, LEVEL III Diagnosis: ESSENTIAL HYPERTENSION[SNOMED: 35203053] Diagnosis: Laceration of finger, index[ICD9: 883.0] Ale Carlos MD, [facility] CPT-4: 23926 03/08/2011 74152 EST. PATIENT, LEVEL III Diagnosis: ESSENTIAL HYPERTENSION[SNOMED: 18595691] Diagnosis: Irritable bowel syndrome (IBS)[ICD9: 564.1] Ale Carlos MD, [facility] CPT-4: 49050 03/01/2011 28696 EST. PATIENT, LEVEL IV Diagnosis: Mild cognitive impairment with memory loss[ICD9: 331.83] Diagnosis: GENERALIZED ANXIETY DISEASE[ICD9: 300.02] Diagnosis: Bruising[ICD9: 924.9] Diagnosis: HYDROCELE[ICD9: 603.9] Ale Carlos MD, [facility] CPT-4: 68437 02/01/2011 07362 EST. PATIENT, LEVEL III Diagnosis: Testicular pain[ICD9: 608.9] Diagnosis: GENERALIZED ANXIETY DISEASE[ICD9: 300.02] Nelly Carlos MD, [facility] CPT-4: 55447 01/27/2011 92864 EST. PATIENT, LEVEL III Diagnosis: Arm bruise[ICD9: 923.9] Nelly Carlos MD, [facility] CPT-4: 82262 01/26/2011 OFFICE VISIT, NEW - LEVEL 4 Diagnosis: DIARRHEA[ICD9: 787.91] Diagnosis: Elevated liver function tests[ICD9: 790.6] Diagnosis: Abdominal discomfort[ICD9: 789.00] Ale Carlos MD, [facility] CPT- 4: 79762 01/06/2011 Plan of Care Planned Activity Notes [...] and swallow - you have thrush. 11/18/2016 Patient Education: Patient Medication Summary Completed [...] aricept and namenda.labs to be done from [facility] 08/23/2016 App[facility]ment[phone] ([facility] Complex 08/23/2016 Patient Education: Patient [...] at home. 04/26/2016 Appointment: [phone] [place] (30 min) Complex 04/26/2016 Patient Education: Patient Medication Summary Completed 04/26/2016 Visit Plan: Joint effusion - recommended drainage and referral to orthopedic surgeon for surgical debridement of bursa 02/17/2016 Appointment: Ale Carlos WPtel: [facility] [place] (30 min) Complex 02/17/2016 Patient Education: Patient Medication Summary Completed 02/17/2016 Visit Plan: Bursitis-right elbow-drained today in the office-increase anti inflammatories for the next 5 days as directed-call if symptoms do not resolve, swelling returns or new symptoms develop-patient verbalized understanding of plan. 02/09/2016 Appointment: Nelly Keen WPtel: [phone] [phone] [place] (30 min) Complex 02/09/2016 [...] Keen WPtel: [phone] (30 min) Complex 02/03/2016 Patient Education: Patient Medication Summary Completed 02/03/2016 Patient Education: Patient Medication Summary Completed 01/30/2016 Care Plan: Metabolic Due on , Pending 01/30/2016 Visit Plan: Abdominal pain - nausea - Pt to have IV fluids at hospital 2015 Appointment: Ale Carlos WPtel: [phone] [facility] (30 min) Complex 01/26/2016 Patient Education: [...] allergy spray. 2015 Appointment: Nelly Keen WPtel[phone] ([facility] min) Complex 01/21/2016 Patient Education: Patient [...] treatment. 09/02/2015 Appointment: [phone] (15 min) Moderate 09/02/2015 Patient Education: Patient [...] today 05/06/2015 Appointment: [phone] (15 min) Moderate 05/06/2015 Patient Education: Patient Medication Summary Completed 05/06/2015 Patient Education: Hypertension Completed 05/06/2015 Care Plan: COMPLETE CBC AUTOMATED LOINC : 54539-8 Ordered 05/06/2015 Visit Plan: Hypertension - well [...] medications. 03/05/2015 Appointment: [phone] (30 min) Complex 03/05/2015 Patient Education: Patient [...] improved. 12/04/2014 Appointment: [phone] Follow up 12/04/2014 Patient Education: Patient Medication [...] ABD & PELV 1/> REGNS LOINC : 18104-6 Ordered 09/24/2014 Visit Plan: Hypertension - well [...] THAT HE SHOULD NOT BE DRIVING TO [place] 07/26/2014 Appointment: Sick 07/26/2014 Appointment: Sick 07/26/2014 [...] medication list. 07/10/2014 Appointment: Ale [phone] [facility] [place] [place] Follow up 07/10/2014 Patient Education: Patient Medication Summary Completed 07/10/2014 Patient Education: Hypertension Completed 07/10/2014 Appointment: Ale Carlos WPtel: [facility] [place] Follow up 06/20/2014 Appointment: Ale Carlos WPtel: [facility] [place] Follow up 06/10/2014 Visit Plan: Anxiety [...] change in blood pressure readings at home.Urinary ltymiuvcr-PBK-ubhufh flomax to bedtime Dizziness-stop hydrocodone and ativan [...] Carlos WPtel: [facility] [facility] 05/29/2014 Patient Education: Patient Medication Summary Completed 05/29/2014 Patient Education: Hypertension Completed 05/29/2014 Appointment: Ale Carlos WPtel: [facility] Lab Draw 05/23/2014 Patient Education: Patient Medication Summary Completed 05/23/2014 Visit Plan: Pneumonia - Pt has been diag nosed with pneumonia by physical exam. A chest xray has been ordered as have antibiotics. The pt is aware of the diagnosis and the need for acute treatment of this illness.Tdfzbtqkp-glwfp-oujofjc flonase nasal spray Hyponatremia-increase gatorade as directedADDENDUM: [...] the need for acute treatment of this illness.Jtuccfhpp-ztjgf-gjdwzze flonase nasal spray Hyponatremia-increase gatorade as directed 05/20/2014 Patient Education: Patient Medication Summary Completed 05/20/2014 Appointment: Ale Carlos WPtel: [phone] [facility] Injection 03/26/2014 Patient Education: Patient Medication [...] Carlos WPtel: [facility] Follow up 03/25/2014 Patient Education: Patient Medication Summary Completed 03/25/2014 Patient Education: Hypertension Completed 03/25/2014 Visit Plan: Ocfmw-wsisspgld-psrutvl joel ngeal reflux-RX for protonix (patient is [...] at home. 12/24/2013 Appointment: Ale Carlos WPtel: [phone] [facility] Follow up 12/24/2013 Patient Education: Patient [...] portion size. 11/20/2013 Appointment: Ale [facility] [facility] Follow up 11/20/2013 Patient Education: Patient Medication Summary Completed 11/20/2013 Appointment: Ale Carlos WPtel: [address] [place], [place] [id number] Follow up 11/06/2013 Visit Plan: Weight loss-increase portion s-add snacks in the morning and afternoon-follow up in 3 weeks for weight checkLow sodium-check labs-restart gatorade Njkcjww-dozyyo-kzblf labs and UA 10/30/2013 Patient Education: Patient Medication Summary Completed 10/30/2013 Appointment: Ale Carlos WPtel: [address] [place], [place] [address] Follow up 10/16/2013 Visit Plan: Sinusitis - [...] Mer[place]. 06/18/2013 Appointment: Ale Carlos WPtel: [address] [facility] Follow up 06/18/2013 Patient Education: Patient [...] concerns. 04/04/2013 Appointment: Ale Carlos WPtel: [address] [facility] Follow up 04/04/2013 Patient Education: Patient [...] with report. 02/19/2013 Appointment: Ale Carlos WPtel: [address] [facility] Follow up 02/19/2013 Patient Education: Patient [...] loss. 10/16/2012 Appointment: Ale Carlos WPtel: [address] [facility] Follow up 10/16/2012 Patient Education: Patient [...] colon return. 06/19/2012 Appointment: [facility] Follow up 06/19/2012 Patient Education: Patient Medication [...] the bentyl. 03/20/2012 Appointment: Ale Carlos WPtel: [facility] Follow up 03/20/2012 Patient Education: Patient Medication Summary Completed 03/20/2012 Patient Education: High Blood Pressure: Essential Hypertension Completed 03/20/2012 Appointment: Ale Carlos WPtel: [facility] Follow up 02/22/2012 Visit Plan: Hypertension [...] as needed. 01/24/2012 Appointment: Ale Carlos WPtel: [facility] [place] Follow up 01/24/2012 Patient Education: Patient [...] have the biopsy until okayed by his snuff blender.. I anticipate it will be at least 4-6 months before he can be off of the plavix and aspirin for additonal procedures unless it is of extreme urgency. 12/20/2011 Appointment: Ale Carlos WPtel: [address] [place], [place] [phone] Follow up 12/20/2011 Patient Education: Patient Medication Summary Completed 12/20/2011 Patient Education: High Blood Pressure: Essential Hypertension Completed 12/20/2011 Appointment: Ale Carlos WPtel: [address] [place], [place] [phone] [place] Other 12/13/2011 Visit Plan: Pain in groin post heart cat h with increased discomfort and increased size - will order an ultrasound for today. 12/09/2011 Appointment: Ale Carlos WPtel: [facility] Other 12/09/2011 Patient Education: Patient Medication [...] either medication. 08/25/2011 Appointment: Ale Carlos WPtel: [facility] Other 08/25/2011 Patient Education: Patient Medication Summary [...] low doses. 2011 Appointment: Ale Carlos WPtel: [address] [place] [address] [place] Other 06/23/2011 Patient Education: Patient Medication Summary Completed 06/23/2011 Patient Education: High Blood Pressure: Essential Hypertension Completed 06/23/2011 Appointment: Ale Carlos WPtel: [address] [place] [address] Other 04/26/2011 Visit Plan: Hypertension - well [...] Carlos WPtel: [facility] Other 04/19/2011 Patient Education: Patient Medication Summary Completed 04/19/2011 Patient Education: High Blood Pressure: Essential Hypertension Completed 04/19/2011 Patient Education: Diverticulosis Diet Completed 04/19/2011 Appointment: Nelly Keen WPtel: [phone] Other 03/23/2011 Patient Education: Patient Medication Summary Completed 03/23/2011 Patient Education: High Blood Pressure: Essential Hypertension Completed 03/23/2011 Visit Plan: Record blood pressure and he art rate at home and drop the readings by the office in two weeks. No change in medications today. Laceration - removed suture today - pt to call if any complications arise. 03/08/2011 Appointment: Ale Carlos WPtel: [facility] Other 03/08/2011 Patient Education: Patient Medication [...] a day. 2010 Appointment: Ale Carlos WPtel: [facility] Other 03/01/2011 Patient Education: Patient Medication Summary Completed 03/01/2011 Patient Education: High Blood Pressure: Essential Hypertension Completed 03/01/2011 Appointment: [phone] [place] Injection 02/25/2011 Patient Education: Patient Medication Summary Completed 02/25/2011 Appointment: Ale Carlos WPtel: [address] [place] [address] [place] Injection 02/16/2011 Patient Education: Patient Medication Summary Completed 02/16/2011 Appointment: Ale Carlos WPtel: [address] [place], [place] [phone] [place] Injection 02/09/2011 Patient Education: Patient Medication Summary Completed 02/09/2011 Appointment: Ale Carlos WPtel: [facility] Follow up 02/02/2011 Visit Plan: Hydrocele [...] with his son - Kenji Dash in [place].Upon our conversation [id number]-vxn-euoyb, Kenji vocalized concerns for his Dad's memory. He stated that he has noticed his father not being as quick in his cognitive functioning, he has noticed some concerns with driving as well. He states that he will discuss these concerns with his parents and other siblings. 02/01/2011 Appointment: Ale Carlos WPtel: [facility] Other 02/01/2011 Patient Education: Patient Medication [...] Carlos WPtel: [facility] [place] New Patient 01/27/2011 Patient Education: Patient Medication Summary Completed 01/27/2011 Visit Plan: Bruising/hematoma left arm-d iscussed natural and expected course of this diagnosis and to alert me if symptoms do not follow expected course or if any worse, Continue with ice/heat as needed for discomfort. Call for any concerns. 01/26/2011 Appointment: Nelly Keen WPtel: [facility]5 [place] [phone] [place] [address] Other 01/26/2011 Patient Education: Patient Medication Summary [...] full course. 01/15/2011 Appointment: Nelly Keen WPtel: [facility] [place] [address] Other 01/15/2011 Patient Education: Patient Medication Summary [...] free diet. 2010 Appointment: Ale Carlos WPtel: [facility] New Patient 01/06/2011 Patient Education: Patient Medication Summary Completed 01/06/2011 Instructions Comment . Pneumonia - Pt has been diagnosed with pneumonia by physical exam. A chest xray has been ordered as have antibiotics. The pt is aware of the diagnosis and the need for acute treatment of this illness. Idehbqnlt-gleno-fmuddgo flonase nasal spray Hyponatremia-increase gatorade as directed [...] need for acute treatment of this illness. Yvrwatthz-yketd-flxouxl flonase nasal spray Hyponatremia-increase gatorade as directed [...] steroid allergy spray. . Joint effusion - r ecommended drainage and referral to orthopedic surgeon for surgical debridement of bursa CHECK LABS-CBC, CMP, UA WITH C&S IF INDICATED . Weight loss-increase portions-add snac ks in the morning and afternoon-follow up in 3 weeks for weight check Low sodium-check labs-restart gatorade Apvoubq-onencu-ocemt labs and UA . Hypertension and C [...] have the biopsy until okayed by his snuff blender.. I anticipate it will be at least [...] a prescriptio n of generic zyrtec to [place] - if [...] nasal steroid allergy spray. . Hypertension - [facility] ontrolled - the [...] exposure. No change in current medications. . Pain in groin post heart cath with increased discomfort and increased size - will order an ultrasound for today. Blood pressure check today in the office-improving. [...] and namenda. labs to be done from [facility] INCREASE GATORADE TO TWICE DAILY . Abdominal pain-patient reports worseni ng symptoms-schedule CT abdomen/pelvis to evaluate for acute abnormality Low sodium-increase gatorade to twice HTN-well controlled-no change in treatment INCREASE GATORADE TO TWICE DAILY . Abdominal pain-patient reports worseni ng symptoms-schedule CT abdomen/pelvis to evaluate for acute abnormality Low sodium-increase gatorade to twice HTN-well controlled-no change in treatment . Uikjq-yznpbjmtp-ec spect laryngeal reflux-RX for protonix (patient is [...] of the lactose free diet. INCREASE ARICEPT (DO NEPEZIL) TO 5MG TAKEN [...] IN THE EVENING OF 01/15/11 Appointment in [address] [place] [address] Carlos. Recommend Lactobacillus 1 orally [...] with his son - Kenji Dash in [place]. Upon our conversation aozq-zuw-bslqx, Kenji vocalized concerns for his Dad's memory. [...] THAT HE SHOULD NOT BE DRIVING TO [place] Pt is to try 1/2 pil l [...] in blood pressure readings at home. Urinary apnhqkcnw-ATX-kearsv flomax to bedtime Dizziness-stop hydrocodone and ativan [...]
--- OUTSIDE RECORDS SUMMARY | 2019-07-16 07:32 | XMS REPORT | CCD ---
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 Name Role Phone Ale Carlos PP Unavailable CCM Unavailable Summary Purpose Interface Exchange Insurance Providers Payer name Policy type / Coverage type Covered constitution party ID Effective Begin Date Effective End Date WPS Medicare Part B Medicare Part B [id number] Unknown Unknown [facility] icare Part B [id number] Unknown Unk nown Family history Runs in the family Diagnosis Age At Onset No Family Disease Entered N/A Mother Diagnosis Age At Onset No Family Disease Entered N/A Father Diagnosis Age At Onset Heart disease Unknown Social History Social History Element Codes Description Effective Dates Number of children Unknown 3 3 ([place], [place], [place]) 2014 Living arrangements Unknown House 01/11/2011 Number of adults in household Unknown 2 01/11/2011 Education level Unknown Post-Graduate PHD in chemistry 01/11/2011 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 Unknown Has never used illegal drugs 011 Allergies, Adverse Reactions, Alerts Substance Reaction Codes Entered Date Inactivated Date Status Lisinopril cough Unknown 03/25/2014 No In active Date Active Past Medical History Illness Codes Condition Status Onset Date Resolved Date Essential (primary) hypertension ICD-9: 401.9 ICD-10: I10 [...] Condition Codes Effectiv e Dates Condition Status Essential (primary) hypertension ICD-9: 401.9 ICD-10: I10 [...] Date Stop Date Sta tus Fill Instructions Mobic 15 mg tablet RxNorm: 782435 1/2 TABLET(S) DAILY 10/28/2016 03/26/2017 Active citalopram 10 mg tablet RxNorm: 315053 TAKE 1 TABLET BY MOUTH EVERY DAY 10/07/2016 03/05/2017 Ac tive Patient requests 90 days supply mirtazapine 15 mg ta blet RxNorm: 128607 TAKE ONE TABLET BY MO UTH EVERY DAY 10/06/2016 09/30/2017 Ac tive mirtazapine 15 mg ta blet RxNorm: 735759 TAKE ONE TABLET BY MO UTH EVERY DAY 10/05/2016 10/05/2016 In active Patient requests 90 days supply amlodipine 10 mg tablet RxNorm: 361613 TAKE 1 TABLET BY MOUTH EVERY DAY 09/14/2016 09/08/2017 Ac tive clopidogrel 75 mg ta blet RxNorm: 272623 TAKE 1 TABLET BY MOUT H EVERY DAY 06/28/2016 12/24/2016 Ac tive lisinopril 20 mg tablet RxNorm: 088982 TAKE 1 TABLET DAILY 05/31/2016 11/26/2016 Active donepezil 10 mg tablet RxNorm: 968421 TAKE 1 TABLET BY MOUTH ONCE DAILY 05/11/2016 11/06/2016 Ac tive donepezil 10 mg tablet RxNorm: 713804 TAKE 1 TABLET BY MOUTH ONCE DAILY 04/26/2016 05/10/2016 In active Mobic 15 mg tablet RxNorm: 993280 1/2 Tablet(s) daily 04/19/2016 10/15/2016 Inactive citalopram 10 mg tablet RxNorm: 339437 TAKE 1 TABLET BY MOUTH EVERY DAY 04/06/2016 04/25/2016 In active cetirizine 10 mg tablet RxNorm: 2295284 Tablet(s) 1 TABLET(S) PO DAILY TO TAKE I NSTEAD OF THE CLARITIN 03/30/2016 02/22/2017 Active amlodipine 10 mg tablet RxNorm: 067999 TAKE 1 TABLET BY MOUTH EVERY DAY 03/08/2016 03/02/2017 Ac tive amlodipine 10 mg tablet RxNorm: 716632 1 Tablet(s) PO daily TAKE 1 TABLET BY MO UTH ONCE DAILY 03/03/2016 03/07/2016 Inactive Requip 0.25 mg tablet RxNorm: 789195 1 Tablet(s) PO BID 03/03/2016 09/13/2016 Inactive Mobic 15 mg tablet RxNorm: 268420 1 Tablet(s) daily not refilled on 02/23/2016 04/18/2016 In active cetirizine 10 mg tablet RxNorm: 5565729 1 TABLET(S) PO DAILY TO TAKE INSTEAD OF THE CLARITIN 02/19/2016 03/19/2016 Inactive lisinopril 20 mg tablet RxNorm: 435578 TAKE 1 TABLET DAILY 02/18/2016 05/17/2016 Inactive Namenda 10 mg tablet RxNorm: 486891 Tablet(s) TAKE 1 TABLET BY MOUTH TWICE D AILY. 02/17/2016 No Stop Date Active lisinopril 20 mg tablet RxNorm: 098092 TAKE 1 TABLET DAILY 01/23/2016 06/20/2016 Inactive cetirizine 10 mg tablet RxNorm: 3326414 1 Tablet(s) PO daily to take instead of the claritin 01/21/2016 02/18/2016 Inactive amlodipine 10 mg tablet RxNorm: 561508 1 Tablet(s) PO daily TAKE 1 TABLET BY MO UTH ONCE DAILY 12/02/2015 03/02/2016 Inactive clopidogrel 75 mg ta blet RxNorm: 891830 TAKE 1 TABLET BY MOUT H EVERY DAY 11/25/2015 05/22/2016 In active Mobic 15 mg tablet RxNorm: 874010 TAKE(1/2) TABLET DAILY. 11/17/2015 02/22/2016 Inactive lisinopril 20 mg tablet RxNorm: 213295 TAKE 1 TABLET DAILY 11/17/2015 01/15/2016 Inactive Mobic 15 mg tablet RxNorm: 466653 1/2 Tablet(s) PO daily TAKE (1/2) TABLET DAILY. 11/12/2015 11/16/2015 Inactive citalopram 10 mg tablet RxNorm: 276370 TAKE 1 TABLET BY MOUTH EVERY DAY 10/27/2015 04/05/2016 In active Requip 0.25 mg tablet RxNorm: 125575 1 Tablet(s) PO BID 10/15/2015 02/11/2016 Inactive Requip 0.25 mg tablet RxNorm: 749822 1 Tablet(s) PO BID 10/15/2015 10/14/2015 Inactive mirtazapine 15 mg ta blet RxNorm: 812726 1 Tablet(s) PO daily 09/08/2015 10/01/2016 Inactive donepezil 10 mg tablet RxNorm: 100696 TAKE 1 TABLET DAILY 09/01/2015 04/25/2016 Inactive amlodipine 10 mg tablet RxNorm: 246046 1 Tablet(s) PO daily TAKE 1 TABLET BY MO [facility] ONCE DAILY 08/18/2015 12/01/2015 Inactive clopidogrel 75 mg ta blet RxNorm: 670502 1 Tablet(s) PO daily TAKE 1 TABLET DAILY 05/20/2015 11/24/2015 In active Mobic 15 mg tablet RxNorm: 620087 Tablet(s) TAKE (1/2) TABLET DAILY. 04/23/2015 10/19/2015 In active lisinopril 20 mg tablet RxNorm: 757690 TAKE 1 TABLET DAILY 04/22/2015 11/16/2015 Inactive Mobic 15 mg tablet RxNorm: 796640 TAKE (1/2) TABLET DAILY. 04/22/2015 04/22/2015 Inactive sulfamethoxazole 400 mg-trimethoprim 80 mg tablet RxNorm: 956286 1/2 Tablet(s) PO nancy y 03/11/2015 04/09/2015 Inactive Vesicare 5 mg tablet RxNorm: 365761 1 Tablet(s) PO 03/11/2015 05/09/2015 Inactive Protonix 40 mg table t,delayed release RxNorm: 762558 1 Tablet(s) PO BID 03/05/2015 09/30/2015 In active ok to change from [address] Archana rivera clopidogrel 75 mg ta blet RxNorm: 340007 1 Tablet(s) PO daily TAKE 1 TABLET DAILY 02/20/2015 05/19/2015 In active Namenda 10 mg tablet RxNorm: 219523 Tablet(s) TAKE 1 TABLET BY MOUTH TWICE D AILY. 01/22/2015 02/16/2016 Inactive amlodipine 10 mg tablet RxNorm: 706176 TAKE 1 TABLET BY MOUTH ONCE DAILY 01/14/2015 08/17/2015 In active donepezil 10 mg tablet RxNorm: 319997 TAKE 1 TABLET DAILY 01/06/2015 08/31/2015 Inactive Levsin 0.125 mg tablet RxNorm: 8979817 1 Tablet(s) PO QID as needed FOR ABD REJI N 11/05/2014 12/03/2014 In active Mobic 15 mg tablet RxNorm: 833993 1/2 Tablet(s) daily TAKE (1/2) TABLET DA MOIZ. 10/01/2014 04/21/2015 Inactive ciprofloxacin 500 mg tablet RxNorm: 704134 1 Tablet(s) PO BID 09/27/2014 10/01/2014 Inactive Flagyl 500 mg tablet RxNorm: 982475 1 Tablet(s) PO TID 09/27/2014 10/03/2014 Inactive take probiotic BID donepezil 10 mg tablet RxNorm: 288050 1/2 Tablet(s) PO BID 09/24/2014 01/05/2015 Inactive lisinopril 20 mg tablet RxNorm: 243501 TAKE 1 TABLET DAILY 09/05/2014 04/21/2015 Inactive amlodipine 10 mg tablet RxNorm: 543494 1 Tablet(s) PO daily 09/02/2014 12/30/2014 Inactive mirtazapine 15 mg ta blet RxNorm: 653841 1 Tablet(s) PO daily 08/28/2014 09/07/2015 Inactive donepezil 10 mg tablet RxNorm: 032037 1 Tablet(s) PO daily 08/28/2014 09/23/2014 Inactive citalopram 10 mg tablet RxNorm: 586091 1 Tablet(s) PO daily 08/28/2014 03/25/2015 Inactive citalopram 10 mg tablet RxNorm: 282189 1 Tablet(s) PO daily 08/07/2014 08/27/2014 Inactive citalopram 10 mg tablet RxNorm: 308277 1 Tablet(s) PO daily 08/07/2014 08/06/2014 Inactive Flagyl 500 mg tablet RxNorm: 094379 1 Tablet(s) PO TID 08/02/2014 08/01/2014 Inactive take probiotic BID Flagyl 500 mg tablet RxNorm: 733235 1 Tablet(s) PO TID 08/02/2014 08/08/2014 Inactive take probiotic BID tamsulosin ER 0.4 mg capsule,extended release 24 hr RxNorm: 865739 1 Capsule(s) PO QHS 06/06/2014 03/10/2015 Inactive TAKE AT BEDTIME escitalopram 5 mg ta blet RxNorm: 739676 1 Tablet(s) PO QPM 06/06/2014 08/06/2014 Inactive doxycycline hyclate 100 mg tablet RxNorm: 739559 1 Tablet(s) PO BID 05/31/2014 05/30/2014 Inactive doxycycline hyclate 100 mg tablet RxNorm: 297422 1 Tablet(s) PO BID 05/31/2014 06/06/2014 Inactive please deliver if not picked by 3pm Aricept 5 mg tablet RxNorm: 036493 1 Tablet(s) PO BID 05/29/2014 08/27/2014 Inactive losartan 50 mg tablet RxNorm: 937568 1/2 Tablet(s) PO daily 05/29/2014 12/28/2015 Inactive clopidogrel 75 mg ta blet RxNorm: 998553 1 Tablet(s) PO daily 05/27/2014 05/26/2014 Inactive Mobic 15 mg tablet RxNorm: 507896 TAKE (1/2) TABLET DAILY. 05/27/2014 09/30/2014 Inactive clopidogrel 75 mg ta blet RxNorm: 561364 TAKE 1 TABLET DAILY 05/27/2014 02/19/2015 Inactive Mobic 15 mg tablet RxNorm: 450198 1/2 Tablet(s) PO daily TAKE (1/2) TABLET DAILY. 05/27/2014 05/26/2014 Inactive prednisone 20 mg tablet RxNorm: 168610 1 Tablet(s) PO BID 05/21/2014 05/25/2014 Inactive albuterol sulfate 2. 5 mg/0.5 mL solution for nebulization RxNorm: 033925 1 inhale INH Q4H as needed 05/21/2014 09/01/2015 Inactive prednisone 20 mg tablet RxNorm: 211488 1 Tablet(s) PO BID 05/21/2014 05/20/2014 Inactive cefdinir 300 mg capsule RxNorm: 835939 1 Capsule(s) PO BID 05/20/2014 05/26/2014 Inactive Zithromax Z-Dequan 250 mg tablet RxNorm: 112173 1 Tablet(s) PO UD 05/20/2014 05/24/2014 Inactive zpack lorazepam 0.5 mg tablet RxNorm: 667683 1/2 to 1 Tablet(s) PO Q8 PRN as needed 04/30/2014 06/05/2014 In active Namenda 10 mg tablet RxNorm: 834529 TAKE 1 TABLET BY MOUTH TWICE DAILY. 04/15/2014 01/21/2015 In active Namenda 10 mg tablet RxNorm: 530586 1 Tablet(s) PO BID 04/15/2014 04/14/2014 Inactive losartan 50 mg tablet RxNorm: 388457 1 Tablet(s) PO daily 03/25/2014 05/28/2014 Inactive Protonix 40 mg table t,delayed release RxNorm: 238575 1 Tablet(s) PO QPM 03/21/2014 06/18/2014 In active ok to change from [address] Archana rivera fluticasone 50 mcg/a ctuation nasal spray,suspension RxNorm: 623140 1 [place] NASAL BID 03/04/2014 09/29/2014 Inactive Protonix 20 mg table t,delayed release RxNorm: 771834 1 Tablet(s) PO QPM 02/08/2014 03/20/2014 In active fluticasone 50 mcg/a ctuation nasal spray,suspension RxNorm: 162162 1 [place] NASAL BID 01/30/2014 03/03/2014 Inactive fluticasone 50 mcg/a ctuation nasal spray,suspension RxNorm: 702082 1 [place] NASAL BID 12/24/2013 01/29/2014 Inactive fluticasone 50 mcg/a ctuation nasal spray,suspension RxNorm: 642538 1 [place] NASAL BID 11/20/2013 12/23/2013 Inactive doxycycline hyclate 100 mg capsule RxNorm: 3209033 1 Capsule(s) PO BID 10/08/2013 10/17/2013 In active doxycycline hyclate 100 mg capsule RxNorm: 7969201 capsule oral 10/08/2013 10/29/2013 Inactive fluticasone 50 mcg/a ctuation nasal spray,suspension RxNorm: 251412 spray,suspension nasl 10/08/2013 11/19/2013 Inactive fluticasone 50 mcg/a ctuation nasal spray,suspension RxNorm: 728823 1 [place] NASAL BID Nasal spray- use twice daily, one spray per nostril twice daily, after 30 minutes, rinse out nose with saline spray. 10/08/2013 10/29/2013 Inactive mirtazapine 7.5 mg t ablet RxNorm: 552516 1/2 Tablet(s) PO daily 08/30/2013 08/27/2014 Inactive lorazepam 0.5 mg tablet RxNorm: 470320 1/2 Tablet(s) PO Q8 PRN 08/21/2013 04/29/2014 Inactive Aricept 5 mg tablet RxNorm: 467037 Tablet(s) PO TAKE 1 TABLET DAILY 08/21/2013 05/28/2014 In active Plavix 75 mg tablet RxNorm: 138921 Tablet(s) PO TAKE 1 TABLET DAILY 05/24/2013 12/04/2014 In active clopidogrel 75 mg ta blet RxNorm: 778214 tablet oral 05/24/2013 05/26/2014 Inactive Plavix 75 mg tablet RxNorm: 307193 1 Tablet(s) PO daily 05/23/2013 05/23/2013 Inactive meloxicam 15 mg tablet RxNorm: 558002 tablet oral 04/26/2013 03/25/2014 Inactive Mobic 15 mg tablet RxNorm: 259919 Tablet(s) PO TAKE (1/2) TABLET DAILY. 04/26/2013 05/26/2014 In active Mobic 15 mg tablet RxNorm: 784570 1/2 Tablet(s) PO daily 04/25/2013 04/25/2013 Inactive lisinopril 20 mg tablet RxNorm: 955268 1 Tablet(s) PO 04/04/2013 03/24/2014 Inactive finasteride 5 mg tablet RxNorm: 759075 tablet oral 03/22/2013 09/01/2015 Inactive lisinopril 10 mg tablet RxNorm: 227521 1 Tablet(s) PO daily 02/14/2013 04/03/2013 Inactive donepezil 5 mg tablet RxNorm: 930063 tablet oral 02/07/2013 12/24/2013 Inactive Influenza Virus Vacc ine 0.5 mL RxNorm: IM 02/06/2013 02/06/2013 Inactive Aricept 5 mg tablet RxNorm: 453713 1 Tablet(s) PO daily 02/06/2013 08/04/2013 Inactive tamsulosin ER 0.4 mg capsule,extended release 24 hr RxNorm: 036911 capsule,extended release 24hr oral 12/21/2012 06/05/2014 Inactive Plavix 75 mg tablet RxNorm: 877400 1 Tablet(s) PO daily 12/05/2012 05/03/2013 Inactive lorazepam 0.5 mg tablet RxNorm: 744221 1/2 Tablet(s) PO Q8 PRN 11/14/2012 08/20/2013 Inactive lisinopril 10 mg tablet RxNorm: 335055 1 Tablet(s) PO daily 08/08/2012 02/03/2013 Inactive Aricept 5 mg tablet RxNorm: 501157 1 Tablet(s) PO daily 08/08/2012 02/03/2013 Inactive Plavix 75 mg tablet RxNorm: 884482 1 Tablet(s) PO daily 07/04/2012 11/30/2012 Inactive Mobic 15 mg tablet RxNorm: 711116 1/2 Tablet(s) PO daily 03/20/2012 04/13/2013 Inactive Namenda 10 mg tablet RxNorm: 204265 1 Tablet(s) PO BID 02/22/2012 04/11/2014 Inactive lorazepam 0.5 mg tablet RxNorm: 980995 1/2 Tablet(s) PO Q8 PRN 02/02/2012 11/13/2012 Inactive lisinopril 10 mg tablet RxNorm: 244849 1 Tablet(s) PO daily 01/24/2012 07/21/2012 Inactive lisinopril 10 mg tablet RxNorm: 304612 1/2 Tablet(s) PO daily 12/20/2011 01/23/2012 Inactive Aricept 5 mg tablet RxNorm: 995302 1 Tablet(s) PO daily 07/14/2011 08/06/2012 Inactive Mobic 15 mg tablet RxNorm: 525377 1 Tablet(s) PO daily 07/14/2011 03/19/2012 Inactive Bentyl 10 mg Cap RxNorm: 657261 1 Capsule(s) PO daily one pill daily and every 6 hours if needed for bowel spasms. 06/23/2011 03/20/2012 Inactive amlodipine 5 mg Tab RxNorm: 256456 2 Tablet(s) PO daily 03/08/2011 12/08/2011 Inactive ZOSTAVAX 19,400 unit Sub-Q Soln RxNorm: 3442307 SQ 02/2502/25/2011 Inactive Pneumovax 23 25 mcg/ 0.5 mL Injection RxNorm: 013140 Milliliter(s) Inj 02/16/2011 02/16/2011 In active Influenza Virus Vacc ine 0.5 mL RxNorm: IM 02/09/2011 02/09/2011 Inactive Namenda 10 mg tablet RxNorm: 376540 1 Tablet(s) PO BID 02/01/2011 02/21/2012 Inactive dicyclomine 10 mg ca psule RxNorm: 090074 capsule oral 01/20/2011 10/29/2013 Inactive Namenda 5 mg tablet RxNorm: 229666 tablet oral 01/20/2011 12/24/2013 Inactive dicyclomine 20 mg ta blet RxNorm: 566174 tablet oral 01/15/2011 10/29/2013 Inactive Flagyl 500 mg Tab RxNorm: 257299 1 Tablet(s) PO TID 01/07/2011 01/06/2011 Inactive Cipro 500 mg Tab RxNorm: 191051 1 Tablet(s) PO BID 01/07/2011 06/23/2011 Inactive Cipro 500 mg Tab RxNorm: 593730 1 Tablet(s) PO BID 01/07/2011 01/06/2011 Inactive Flagyl 500 mg Tab RxNorm: 686834 1 Tablet(s) PO TID 01/07/2011 06/23/2011 Inactive metronidazole 500 mg tablet RxNorm: 976403 tablet oral 01/07/2011 12/24/2013 Inactive sulfamethoxazole 400 mg-trimethoprim 80 mg tablet RxNorm: 983037 tablet oral 12/24/2010 03/10/2015 In active mirtazapine 15 mg ta blet RxNorm: 821091 tablet oral 11/14/2010 12/24/2013 Inactive lisinopril 10 mg tablet RxNorm: 435919 tablet oral 11/14/2010 12/24/2013 Inactive doxycycline hyclate 100 mg tablet RxNorm: 934050 tablet oral 11/04/2010 12/24/2013 Inactive diphenoxylate-atropi ne 2.5 mg-0.025 mg tablet RxNorm: 2100912 tablet oral 11/03/2010 10/29/2013 In active ciprofloxacin 500 mg tablet RxNorm: 454727 tablet oral 11/01/2010 10/29/2013 Inactive aspirin 81 mg Cap, D elayed Release RxNorm: 038189 1 Capsule(s) PO daily No Start Date Active Allergy Relief (ceti rizine) oral RxNorm: 828827 oral No S tart Date Active Vitamin D 1,000 unit Tab RxNorm: 474696 1 Tablet(s) PO daily No Start Date Active Senior Vitamin Tab RxNorm: 1 Tablet(s) PO daily No Start Date Active sulfamethoxazole 500 mg Tab RxNorm: 390918 1/2 Tablet(s) PO daily No Start Date 12/24/2013 Inactive Plavix 75 mg Tab RxNorm: 884546 1 Tablet(s) PO daily No Start Date 01/26/2011 Inactive hydrocodone 5 mg-alexey taminophen 325 mg tablet RxNorm: 309338 1 Tablet(s) PO Q6 as needed No Start Date 06/05/2014 Inactive Proscar 5 mg Tab RxNorm: 525079 1 Tablet(s) PO daily No Start Date 09/01/2015 Inactive Plavix 75 mg tablet RxNorm: 445082 1 Tablet(s) PO daily No Start Date 07/03/2012 Inactive albuterol sulfate 2. 5 mg/0.5 mL solution for nebulization RxNorm: 980278 1 inhale INH Q4H as needed No Start Date 05/20/2014 Inactive amlodipine 5 mg Tab RxNorm: 852660 1 Tablet(s) PO daily No Start Date 03/07/2011 Inactive Namenda 5 mg Tab RxNorm: 806776 1 Tablet(s) PO daily No Start Date 06/23/2011 Inactive fluocinonide 0.05 % Ointment RxNorm: 841831 1 TOP BID PRN No Start Date 12/24/2013 Inactive amlodipine 5 mg tablet RxNorm: 217991 1 Tablet(s) PO daily No Start Date 09/01/2014 Inactive lisinopril Oral RxNorm: Oral No Start Date 12/08/2011 Inactive simvastatin 20 mg Tab RxNorm: 765881 1 Tablet(s) PO daily No Start Date 06/06/2014 Inactive Bentyl 20 mg Tab RxNorm: 486522 1 Tablet(s) PO Q6 PRN No Start Date 06/23/[address] Quintero Bentyl 10 mg Cap RxNorm: 206545 1 Capsule(s) PO BID No Start Date 06/22/2011 Inactive Plavix 75 mg Tab RxNorm: 829451 1 Tablet(s) PO every other day No Start Date 08/24/2011 Inactive lorazepam 0.5 mg tablet RxNorm: 036998 1/2 Tablet(s) PO Q8 PRN No Start Date 02/01/2012 Inactive lisinopril 10 mg tablet RxNorm: 493343 1 Tablet(s) PO daily No Start Date 12/19/2011 Inactive Flomax 0.4 mg 24 hr Cap RxNorm: 944118 1 Capsule(s) PO daily No Start Date 05/28/2014 Inactive Aricept 5 mg Tab RxNorm: 911828 1 Tablet(s) PO daily No Start Date 07/13/2011 Inactive Levsin 0.125 mg tablet RxNorm: 7863063 1 Tablet(s) PO QID as needed FOR ABD REJI N No Start Date 11/04/2014 Inactive mirtazapine 7.5 mg t ablet RxNorm: 520638 1/2 Tablet(s) PO daily No Start Date 08/29/2013 Inactive Mobic 15 mg Tab RxNorm: 114079 1 Tablet(s) PO daily No Start Date 07/13/2011 Inactive Medication Administered Medication Codes Instruc tions Start Date Status Influenza Virus Vaccine 0.5 mL RxNorm: 02/06/2013 No longer Active ZOSTAVAX 19,400 unit Sub-Q Soln RxNo rm: 1959751 02/25/2011 No longer A ctive Pneumovax 23 25 mcg/0.5 mL Injection RxNorm: 434979 Milliliter 02/16/2011 No longer Active Influenza Virus [...] anxiety disorder ICD-10: F41.1 ICD-9: 300.02 05/06/2015 Mixed hyperlipidemia ICD-10: E78.2 ICD-9: 272.4 05/06/2015 Encounter for immunization ICD-10: Z 23 ICD-9: V03.9 05/06/2015 Gastro-esophageal reflux disease without esophagitis ICD-10: [...] Osteoarthritis ICD-9: 715.90 09/09/2014 Depression ICD-9: 311 Dizziness ICD-9: 780.4 0 06/06/2014 Urinary frequency ICD-9: 788.41 06/06/2014 NOCTURIA ICD-9: 788.43 0 05/23/2014 COUGH ICD-9: 786.2 05/20 Pneumonia ICD-9: 486 04/2015 ALLERGIC RHINITIS ICD-9: 477.9 05/20/2014 Nasal congestion ICD-9: 478.19 12/24/2013 ABNORMAL LOSS [...] 02/25/2011 VACCIN STREP PNEUMONIAE ICD-9: V03.82 02/16/2011 Bruising ICD-9: 924.9 HYDROCELE ICD-9: 603.9 0 02/01/2011 Testicular pain ICD-9: 608.9 01/27/2011 Arm bruise ICD-9: 923.9 01/26/2011 Diarrhea ICD-9: 787.91 0 01/15/2011 Elevated liver function tests ICD-9: 790.6 01/06/2011 Reason For Visit Reason For Visit Effective Dates Notes hypertension 08/23/2016 hypertension 04/26/2016 edema 02/17/2016 edema [...] BODY FLUID 02/18/2016 Uric Acid Body Fluid 827707 URIC ACID-FLUID 4.3 mg/dL 02/18/2016 Metabolic Ord15 [...] Ord15 CALCIUM 9.1 mg/dL 02/05/2016 Comp Metabolic Cub176 NA 129 mEq/L 10/08/2015 Comp Metabolic Lix484 K 4.7 mEq/L 10/08/2015 Comp Metabolic Wbm885 CL 98 mEq/L 10/08/2015 Comp Metabolic Tls145 CO2 28.0 mEq/L 10/08/2015 Comp Metabolic Jgp566 AN ION GAP 8 10/08/2015 Comp Metabolic Mpc798 GL UCOSE 84 mg/dL 10/08/2015 Comp Metabolic Hjc270 Cr eat 1.3 mg/dL 10/08/2015 Comp Metabolic Ulk085 eG FR 56 ml/min/1.73m2 10/07 Comp Metabolic Gty690 BUN 23 mg/dL 10/08/2015 Comp Metabolic Mra936 B/ C Ratio 17.8 Ratio 10/08/2015 Comp Metabolic Fjz088 CA LCIUM 9.3 mg/dL 10/08/2015 Comp Metabolic Aib473 AL K PHOS 68 U/L 10/08/2015 Comp Metabolic Wwu876 T(SGOT) 24 U/L 10/08/2015 Comp Metabolic Vdu363 AL T(SGPT) 15 U/L 10/08/2015 Comp Metabolic Qlj035 BI LI T 0.5 mg/dL 10/08/2015 Comp Metabolic Qft771 AL BUMIN 4.0 g/dL 10/08/2015 Comp Metabolic Zry195 TP RO 5.9 g/dL 10/08/2015 Comp Metabolic Vof440 GL OB 1.9 g/dL 10/08/2015 Comp Metabolic Gkc623 A/ G Ratio 2.1 Ratio 10/08/2015 Comp Metabolic Ogb062 Os mo 262 mOsmo 10/08/2015 Lipid Ord30 [...] hTSH II 4.07 uIU/mL 05/07/2015 Comp Metabolic Iyh393 NA 132 mEq/L 05/07/2015 Comp Metabolic Xuh740 K 4.4 mEq/L 05/07/2015 Comp Metabolic Bfj450 CL 97 mEq/L 05/07/2015 Comp Metabolic Afp859 CO2 30.0 mEq/L 05/07/2015 Comp Metabolic Ahc915 AN ION GAP 9 05/07/2015 Comp Metabolic Toe552 GL UCOSE 78 mg/dL 05/07/2015 Comp Metabolic Dix988 Cr eat 1.2 mg/dL 05/07/2015 Comp Metabolic Apx581 eG FR 60 ml/min/1.73m2 05/07 Comp Metabolic Mtw518 BUN 25 mg/dL 05/07/2015 Comp Metabolic Nos428 B/ C Ratio 20.3 Ratio 05/07/2015 Comp Metabolic Urc475 CA LCIUM 9.6 mg/dL 05/07/2015 Comp Metabolic Ukp708 AL K PHOS 70 U/L 05/07/2015 Comp Metabolic Yzf360 T(SGOT) 27 U/L 05/07/2015 Comp Metabolic Mkp375 AL T(SGPT) 20 U/L 05/07/2015 Comp Metabolic Jtr090 BI LI T 0.4 mg/dL 05/07/2015 Comp Metabolic Wrk399 AL BUMIN 4.0 g/dL 05/07/2015 Comp Metabolic Hoz595 TP RO 5.8 g/dL 05/07/2015 Comp Metabolic Cxy346 GL OB 1.8 g/dL 05/07/2015 Comp Metabolic Wwo984 A/ G Ratio 2.3 Ratio 05/07/2015 Comp Metabolic Wws515 Os mo 268 mOsmo 05/07/2015 Comp Metabolic Upx509 NA 134 mEq/L 12/10/2014 Comp Metabolic Mox232 K 4.8 mEq/L 12/10/2014 Comp Metabolic Ikk101 CL 101 mEq/L 12/10/2014 Comp Metabolic Nec736 CO2 30.0 mEq/L 12/10/2014 Comp Metabolic Hkv756 AN ION GAP 8 12/10/2014 Comp Metabolic Hur683 GL UCOSE 85 mg/dL 12/10/2014 Comp Metabolic Snz249 Cr eat 1.2 mg/dL 12/10/2014 Comp Metabolic Nfm954 eG FR 65 ml/min/1.73m2 12/10 Comp Metabolic Llv837 BUN 25 mg/dL 12/10/2014 Comp Metabolic Wzh692 B/ C Ratio 21.7 Ratio 12/10/2014 Comp Metabolic Qyp719 CA LCIUM 9.5 mg/dL 12/10/2014 Comp Metabolic Sld457 AL K PHOS 76 U/L 12/10/2014 Comp Metabolic Ibl763 T(SGOT) 27 U/L 12/10/2014 Comp Metabolic Gxj267 AL T(SGPT) 18 U/L 12/10/2014 Comp Metabolic Zus787 BI LI T 0.5 mg/dL 12/10/2014 Comp Metabolic Xbe560 AL BUMIN 4.1 g/dL 12/10/2014 Comp Metabolic Zdk795 TP RO 5.7 g/dL 12/10/2014 Comp Metabolic Mvw119 GL OB 1.6 g/dL 12/10/2014 Comp Metabolic Yed449 A/ G Ratio 2.6 Ratio 12/10/2014 Comp Metabolic Rwj001 Os mo 272 mOsmo 12/10/2014 B12 Ihh447 B12 1011.00 pg/ml 12/10/2014 Lipid Ord30 CHOL [...] Differential Ord2 RDW 14.3 % 12/10/2014 CBC [id number] WBC 4.1 10e9/L 02/19/2013 CBC 1830124 RBC 4.39 10e12/L 02/19/2013 CBC 6754194 HGB 14.1 g/dL 02/19/2013 CBC [id number] HCT DET 41.0 % 02/19/2013 CBC [id number] MCV 93.4 fL 02/19/2013 CBC 6904098 MCH 32.1 pg 02/19/2013 CBC 2368861 MCHC 34.4 g/dL 02/19/2013 CBC 2788866 PLT 151 10e9/L 02/19/2013 CBC [id number] MPV 11.8 fL 02/19/2013 CBC 9286889 YOVANNY % 63.2 % 02/19/2013 CBC 6076064 LY % 22.9 % 02/19/2013 CBC 1189919 MON % 11.5 % 02/19/2013 CBC 6407000 EOS % 2.2 % 02/19/2013 CBC 1529900 BASO % 0.2 % 02/19/2013 CBC 0171912 RDW 13.8 % 02/19/2013 CBC 8898428 ABS YOVANNY 2.59 10e9/L 02/19/2013 CBC 5914226 ABS LYMPH 0.94 10e9/L 02/19/2013 CBC 7312666 ABS MONO 0.47 10e9/L 02/19/2013 CBC 9627392 ABS EOS 0.09 10e9/L 02/19/2013 CBC 4817119 ABS BASO 0.01 10e9/L 02/19/2013 CBC 6280033 RDW-SD 46.0 fL 02/19/2013 TSH 9283951 TSH 2.094 uIU/ML 02/19/2013 FREE T4 5457754 FREE T4 1.18 NG/DL 02/19/2013 GFR CALC 4741442 GFR AA >60 ML/MIN 02/19/2013 GFR CALC 7411880 GFR NON -AA >60 ML/MIN 02/19/2013 CHEM 14 3695281 AST 30 U/L 02/19/2013 CHEM 14 9109782 ALT 19 IU/L 02/19/2013 CHEM 14 0448616 BUN 21 MG/DL 02/19/2013 CHEM 14 7982122 ALBUMIN 4.4 GM/DL 02/19/2013 CHEM 14 0076078 CHLORIDE 94 MMOL/L 02/19/2013 CHEM 14 5832375 BILI TOT 0.5 MG/DL 02/19/2013 CHEM 14 6800859 ALK PHOS 75 U/L 02/19/2013 CHEM 14 1739108 SODIUM 133 MMOL/L 02/19/2013 CHEM 14 2977450 CREATINI NE 1.07 MG/DL 02/19/2013 CHEM 14 7719196 CALCIUM 9.6 MG/DL 02/19/2013 CHEM 14 0063779 POTASSIUM 4.6 MMOL/L 02/19/2013 CHEM 14 3818597 PROT TOT 6.1 GM/DL 02/19/2013 CHEM 14 2903268 GLUCOSE 94 MG/DL 02/19/2013 CHEM 14 0830389 BICARB 31 MMOL/L 02/19/2013 CHEM 14 2503671 ANION GAP 8 MEQ/L 02/19/2013 UA [address] Specific [place] 1.015 DateTime(Free Text in Aprima ) UA 89505 PH 6 DateTime(Free Text in Apr ) UA 82259 GLUCOSE neg DateTime(Free Text in Aprima ) UA 24810 Protein neg DateTime(Free Text in Aprima ) UA 72458 Blood neg DateTime(Free Text in Aprima ) UA 16608 Bilirubin neg DateTime(Free Text in Aprima ) UA 54032 Ketones neg DateTime(Free Text in ) UA 73450 Urobilinogen neg DateTime(Free Text in ) UA 22368 Nitrite neg DateTime(Free Text in ) UA 84281 Leukocytes neg DateTime(Free Text in ) Review of Systems System Result Effective Dates Constitutional No recent illness 08/23/2016 Constitutional No [...] posture 10/08/2013 None Full Exam - General 1995 [...] normal 01/06/2011 None Full Exam - General 1995 [...] Procedure Codes Date DRAIN/INJECT JOINT/B URSA CPT-4: 84487Ezsshbm 02/17/2016 IMMUNIZATION ADMIN CPT-4: 83033Hitvrzt 05/06/2015 PNEUMOCOCCAL VACC 13 TIFFANIE IM Formatting Model/CDA Sections, Assigned to/Celia Minaya SNOMED CT: 60025748 CPT-4: 23344Wexnhur 05/06/2015 ADMIN INFLUENZA VIRU S VAC CPT-4: M6809Dhoqzjz 02/19/2015 FLU VACC 4 TIFFANIE 3 YRS PLUS IM Formatting Model/CDA Sections, Assigned to SNOMED CT: 30853636 CPT-4: 98020Uciuvfs 02/19/2015 URINALYSIS NONAUTO W /O SCOPE CPT-4: 56237Lqxdlrj 05/23/2014 ADMIN INFLUENZA VIRU S VAC CPT-4: U9412Ckmtrgp 03/26/2014 FLU VAC NO PRSV 4 VA L 3 YRS+ Assigned to/Celia Minaya CPT-4: 66814Tpbanmt 03/26/2014 PRESCRIP TRANSMIT A ERX SY CPT-4: S0185Hjcdinb 04/04/2013 ROUTINE VENIPUNCTURE CPT-4: 70619Rcplnxp 02/19/2013 ADMIN INFLUENZA VIRU S VAC CPT-4: H6877Zmgxodb 02/06/2013 FLULAVAL VACC, 3 YRS & >, IM CPT-4: C2096Gdxsndv 02/06/2013 11005 EST. PATIENT, LEVEL IV CPT-4: 95410Xagazum 06/19/2012 PRESCRIP TRANSMIT A ERX SY CPT-4: D6887Moqpahd 06/19/2012 PRESCRIP TRANSMIT A ERX SY CPT-4: Z1545Yhsrakk 03/20/2012 PRESCRIP TRANSMIT A ERX SY CPT-4: T8319Enqixhm 06/23/2011 IMMUNIZATION ADMIN CPT-4: 32048Odtulag 02/25/2011 ZOSTER VACC SC (No lloyd stephens, patient supplied vaccine) CPT-4: 06205OBJdumyxp 02/25/2011 ADMIN PNEUMOCOCCAL V ACCINE SNOMED CT: 21877170 CPT-4: B2504Irmkhbt 02/16/2011 Pneumococcal Polysac charide Vaccine, 23-Valent, Ad CPT-4: 35477Krbogot 02/16/2011 ADMIN INFLUENZA VIRU S VAC CPT-4: T6852Nekovch 02/09/2011 FLULAVAL VACC, 3 YRS & >, IM CPT-4: J5150Wtmmbau 02/09/2011 PRESCRIP TRANSMIT A ERX SY CPT-4: W0682Ixwjwxp 02/01/2011 URINALYSIS NONAUTO W /O SCOPE CPT-4: 28675Zhmvakf 01/27/2011 Vital Signs Date Vital 08/23/2016 Blood Pressure 1: 118/68 Code: 8480-6 BMI: 20.8 Code: 84855-3 Heart Rate 1: 54 bpm Height: 5'9" SpO2: 97% Weight: 141 lbs 04/26/2016 Blood Pressure 1: 108/64 Code: 8480-6 BMI: 21.0 Code: 67117-0 Heart Rate 1: 62 bpm Height: 5'9" SpO2: 95% Weight: 142 lbs 02/17/2016 Blood Pressure 1: 138/80 Code: 8480-6 BMI: 20.2 Code: 30483-4 Heart Rate 1: 76 bpm Height: 5'9" SpO2: 97% Weight: 137 lbs 02/09/2016 Blood Pressure 1: 140/76 Code: 8480-6 BMI: 20.2 Code: 31207-4 Heart Rate 1: 72 bpm Height: 5'9" SpO2: 96% Weight: 137 lbs 02/03/2016 Blood Pressure 1: 136/80 Code: 8480-6 BMI: 20.7 Code: 72008-4 Heart Rate 1: 86 bpm Height: 5'9" SpO2: 96% Weight: 140 lbs 01/26/2016 Blood Pressure 1: 144/78 Code: 8480-6 BMI: 20.7 Code: 12775-6 Heart Rate 1: 73 bpm Height: 5'9" SpO2: 97% Temperature: 37.0 (C ) / 98.6 (F) Weight: 140 lbs 01/21/2016 Blood Pressure 1: 116/62 Code: 8480-6 BMI: 20.4 Code: 87526-7 Heart Rate 1: 66 bpm Height: 5'9" SpO2: 97% Weight: 138 lbs 12/29/2015 Blood Pressure 1: 130/74 Code: 8480-6 BMI: 20.4 Code: 19265-6 Heart Rate 1: 51 bpm Height: 5'9" SpO2: 98% Weight: 138 lbs 09/02/2015 Blood Pressure 1: 126/60 Code: 8480-6 BMI: 22.3 Code: 80349-1 Heart Rate 1: 55 bpm Height: 5'9" SpO2: 96% Weight: 151 lbs 05/06/2015 Blood Pressure 1: 132/72 Code: 8480-6 BMI: 21.0 Code: 31195-5 Heart Rate 1: 63 bpm Height: 5'9" SpO2: 97% Weight: 142 lbs 03/05/2015 Blood Pressure 1: 130/68 Code: 8480-6 BMI: 21.0 Code: 99143-1 Heart Rate 1: 61 bpm Height: 5'9" SpO2: 96% Weight: 142 lbs 12/04/2014 Blood Pressure 1: 122/64 Code: 8480-6 BMI: 21.3 Code: 55919-5 Heart Rate 1: 72 bpm Height: 5'9" Weight: 144 lbs 09/24/2014 Blood Pressure 1: 142/80 Code: 8480-6 BMI: 20.4 Code: 05373-1 Heart Rate 1: 80 bpm Height: 5'9" Weight: 138 lbs 09/09/2014 Blood Pressure 1: 122/74 Code: 8480-6 BMI: 20.5 Code: 69804-4 Heart Rate 1: 64 bpm Height: 5'9" Weight: 139 lbs 07/26/2014 Blood Pressure 1: 136/82 Code: 8480-6 BMI: 20.4 Code: 05740-9 Heart Rate 1: 87 bpm Height: 5'9" SpO2: 92% Weight: 138 lbs 07/10/2014 Blood Pressure 1: 130/74 Code: 8480-6 BMI: 21.1 Code: 73493-1 Heart Rate 1: 64 bpm Height: 5'9" Weight: 143 lbs 06/06/2014 Blood Pressure 1: 142/88 Code: 8480-6 BMI: 20.4 Code: 47575-9 Heart Rate 1: 68 bpm Height: 5'9" Weight: 138 lbs 05/29/2014 Blood Pressure 1: 108/72 Code: 8480-6 BMI: 20.5 Code: 83269-0 Heart Rate 1: 60 bpm Height: 5'9" Weight: 139 lbs 05/20/2014 Blood Pressure 1: 140/72 Code: 8480-6 BMI: 21.6 Code: 05326-2 Heart Rate 1: 60 bpm Height: 5'9" SpO2: 98% Temperature: 36.2 (C ) / 97.2 (F) Weight: 146 lbs 03/25/2014 Blood Pressure 1: 128/60 Code: 8480-6 BMI: 21.4 Code: 82558-1 Heart Rate 1: 62 bpm Height: 5'9" Weight: 145 lbs 02/08/2014 Blood Pressure 1: 136/82 Code: 8480-6 BMI: 21.3 Code: 64650-8 Heart Rate 1: 68 bpm Height: 5'9" Weight: 144 lbs 12/24/2013 Blood Pressure 1: 122/76 Code: 8480-6 BMI: 21.6 Code: 37931-7 Heart Rate 1: 58 bpm Height: 5'9" Weight: 146 lbs 11/20/2013 Blood Pressure 1: 112/62 Code: 8480-6 BMI: 20.7 Code: 49971-7 Heart Rate 1: 56 bpm Height: 5'9" Weight: 140 lbs 10/30/2013 Blood Pressure 1: 130/68 Code: 8480-6 BMI: 20.1 Code: 15150-1 Heart Rate 1: 68 bpm Height: 5'9" SpO2: 96% Weight: 136 lbs 10/08/2013 Blood Pressure 1: 128/72 Code: 8480-6 BMI: 20.8 Code: 00034-6 Heart Rate 1: 60 bpm Height: 5'9" Temperature: 36.6 (C ) / 97.8 (F) Weight: 141 lbs 06/18/2013 Blood Pressure 1: 124/78 Code: 8480-6 BMI: 20.8 Code: 33675-7 Heart Rate 1: 64 bpm Height: 5'9" Weight: 141 lbs 04/04/2013 Blood Pressure 1: 138/60 Code: 8480-6 BMI: 20.8 Code: 01500-3 Heart Rate 1: 56 bpm Height: 5'9" Weight: 141 lbs 02/19/2013 Blood Pressure 1: 152/74 Code: 8480-6 BMI: 21.0 Code: 55236-1 Heart Rate 1: 60 bpm Height: 5'9" Weight: 142 lbs 10/16/2012 Blood Pressure 1: 122/70 Code: 8480-6 BMI: 20.8 Code: 49502-7 Heart Rate 1: 64 bpm Height: 5'9" Weight: 141 lbs 06/19/2012 Blood Pressure 1: 120/72 Code: 8480-6 BMI: 21.1 Code: 17423-4 Heart Rate 1: 60 bpm Height: 5'9" Weight: 143 lbs 03/20/2012 Blood Pressure 1: 114/76 Code: 8480-6 Heart Rate 1: 60 bpm Respiratory Rate: 16 bpm Weight: 143 lbs 01/24/2012 Blood Pressure 1: 134/70 Code: 8480-6 Heart Rate 1: 64 bpm Weight: 143 lbs 12/20/2011 Blood Pressure 1: 98/72 Code: 8480-6 BMI: 21.1 Code: 95647-5 Heart Rate 1: 60 bpm Height: 5'9" Respiratory Rate: 16 bpm Weight: 143 lbs 12/09/2011 Blood Pressure 1: 110/60 Code: 8480-6 Heart Rate 1: 66 bpm SpO2: 98% Weight: 141 lbs 08/25/2011 Blood Pressure 1: 112/70 Code: 8480-6 BMI: 20.8 Code: 91226-3 Heart Rate 1: 54 bpm Height: 5'9" Respiratory Rate: 16 bpm Weight: 141 lbs 06/23/2011 Blood Pressure 1: 126/64 Code: 8480-6 Heart Rate 1: 60 bpm Respiratory Rate: 16 bpm Weight: 142 lbs 04/19/2011 Blood Pressure 1: 124/64 Code: 8480-6 BMI: 21.1 Code: 91011-0 Heart Rate 1: 64 bpm Height: 5'9" Respiratory Rate: 16 bpm Weight: 143 lbs 03/23/2011 Blood Pressure 1: 137/71 Code: 8480-6 Heart Rate 1: 57 bpm 03/08/2011 Blood Pressure 1: 154/70 Code: 8480-6 BMI: 20.8 Code: 52619-7 Heart Rate 1: 60 bpm Height: 5'9" Respiratory Rate: 16 bpm Weight: 141 lbs 03/01/2011 Blood Pressure 1: 178/80 Code: 8480-6 Blood Pressure 2: 168/70 Code: 8480-6 BMI: 24.1 Code: 65721-8 Heart Rate 1: 60 bpm Height: 5'9" Respiratory Rate: 16 bpm Weight: 163 lbs 02/01/2011 Blood Pressure 1: 162/84 Code: 8480-6 Heart Rate 1: 60 bpm Respiratory Rate: 16 bpm Weight: 144 lbs 01/27/2011 Blood Pressure 1: 138/54 Code: 8480-6 BMI: 21.1 Code: 64216-9 Heart Rate 1: 68 bpm Height: 5'9" Respiratory Rate: 16 bpm Weight: 143 lbs 01/26/2011 Blood Pressure 1: 148/86 Code: 8480-6 BMI: 21.3 Code: 56381-9 Heart Rate 1: 74 bpm Height: 5'9" Weight: 144 lbs 01/15/2011 Blood Pressure 1: 136/76 Code: 8480-6 BMI: 20.5 Code: 22572-8 Heart Rate 1: 70 bpm Height: 5'10" Weight: 141 lbs 01/06/2011 Blood Pressure 1: 148/72 Code: 8480-6 BMI: 20.2 Code: 35421-2 Heart Rate 1: 72 bpm Height: 5'10" Respiratory Rate: 12 bpm Weight: 139 lbs Functional Status No Functional Status data History of Present Illness Symptom Name Status Resu lt Effective Date Notes hypertension Quality sta ble 08/23/2016 None hypertension [...] 05/20/2014 None cough Location in the [facility] 03/25/2014 None cough Quality hacking 03/25/2014 [...] Encounters Encounter Performer Loca tion Codes Date () 04599 EST. P ATIENT, LEVEL IV Diagnosis: Essential (primary) hypertension[ICD10: I10] Diagnosis: Mild cognitive impairment, so stated[ICD10: G31.84] Ale Carlos MD, [facility] CPT-4: 02623 08/23/2016 ([id number]) 11435 EST. P ATIENT, LEVEL III Diagnosis: Essential (primary) hypertension[ICD10: I10] Ale Carlos MD, [facility] CPT-4: 66635 04/26/2016 ([id number]) Miscellarinou s no charge Diagnosis: Olecranon bursitis, right elbow[ICD10: M70.21] Nelly Carlos MD, [facility] CPT-4: 38980 02/09/2016 ([id number]) 34484 EST. P ATIENT, LEVEL III Diagnosis: Olecranon bursitis, right elbow[ICD10: M70.21] Nelly Carlos MD, [facility] CPT-4: 89834 02/03/2016 ([id number]) 46827 EST. P ATIENT, LEVEL III Diagnosis: Generalized abdominal tenderness[ICD10: R10.817] Ale Carlos MD, [facility] CPT-4: 73616 01/26/2016 65209 EST. PATIENT, LEVEL IV Diagnosis: Other allergic rhinitis[ICD10: J30.89] Ruchi Carlos MD, [facility] CPT-4: 51687 01/21/2016 ([id number]) 32911 EST. P ATIENT, LEVEL IV Diagnosis: Essential (primary) hypertension[ICD10: I10] Diagnosis: Hypo-osmolality and hyponatremia[ICD10: E87.1] Ale Carlos MD, [facility] CPT-4: 75011 12/29/2015 ([id number]) 31933 EST. P ATIENT, LEVEL IV Diagnosis: Essential (primary) hypertension[ICD10: I10] Diagnosis: Mild cognitive impairment, so stated[ICD10: G31.84] Ale Carlos MD, C CPT-4: 04699 09/02/2015 ([id number]) 85501 EST. P ATIENT, LEVEL IV Diagnosis: Mixed hyperlipidemia[ICD10: E78.2] Diagnosis: Generalized anxiety disorder[ICD10: F41.1] Diagnosis: Mild cognitive impairment, so stated[ICD10: G31.84] Diagnosis: Essential (primary) hypertension[ICD10: I10] Diagnosis: Encounter for immunization[ICD10: Z23] Ale Carlos MD, [facility] CPT-4: 00077 05/06/2015 ([id number]) 30779 EST. 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 P ATIENT, LEVEL IV Diagnosis: ESSENTIAL HYPERTENSION[ICD9: 401.9] Diagnosis: GENERALIZED ANXIETY DISEASE[ICD9: 300.02] Diagnosis: MILD COGNITIVE IMPAIREMT[ICD9: 331.83] Diagnosis: IRRITABLE COLON[ICD9: 564.1] Ale Carlos MD, [facility] CPT-4: 74090 12/04/2014 ([id number]) 69169 EST. P ATIENT, LEVEL IV Diagnosis: Abdominal pain[ICD9: 789.00] Diagnosis: GENERALIZED ANXIETY DISEASE[ICD9: 300.02] Diagnosis: Hyponatremia[ICD9: 276.1] Diagnosis: ESSENTIAL HYPERTENSION[ICD9: 401.9] Nelly Carlos MD, [facility] CPT-4: 32091 09/24/2014 ([id number]) 36730 EST. P ATIENT, LEVEL IV Diagnosis: ESSENTIAL HYPERTENSION[ICD9: 401.9] Diagnosis: Osteoarthritis[ICD9: 715.90] Diagnosis: Mild cognitive impairment with memory loss[ICD9: 331.83] Ale Carlos MD, [facility] CPT-4: 15912 09/09/2014 ([id number]) 25663 EST. P ATIENT, LEVEL III Diagnosis: GENERALIZED ANXIETY DISEASE[ICD9: 300.02] Diagnosis: Depression[ICD9: 311] Ale Carlos MD, [facility] CPT-4: 89854 07/26/2014 ([id number]) 90768 EST. P ATIENT, LEVEL IV Diagnosis: ESSENTIAL HYPERTENSION[ICD9: 401.9] Diagnosis: GENERALIZED ANXIETY DISEASE[ICD9: 300.02] Diagnosis: MILD COGNITIVE IMPAIREMT[ICD9: 331.83] Ale Carlos MD, [facility] CPT-4: 31436 07/10/2014 ([id number]) 03735 EST. P ATIENT, LEVEL IV Diagnosis: Dizziness[ICD9: 780.4] Diagnosis: GENERALIZED ANXIETY DISEASE[ICD9: 300.02] Diagnosis: Depression[ICD9: 311] Diagnosis: ESSENTIAL HYPERTENSION[ICD9: 401.9] Diagnosis: Urinary frequency[ICD9: 788.41] Ale Carlos MD, [facility] CPT-4: 48838 06/06/2014 ([id number]) 96352 EST. P ATIENT, LEVEL IV Diagnosis: ESSENTIAL HYPERTENSION[ICD9: 401.9] Diagnosis: GENERALIZED ANXIETY DISEASE[ICD9: 300.02] Diagnosis: Mild cognitive impairment with memory loss[ICD9: 331.83] Ale Carlos MD, [facility] CPT-4: 73723 05/29/2014 ([id number]) 11381 EST. P ATIENT, LEVEL IV Diagnosis: Pneumonia[ICD9: 486] Diagnosis: COUGH[ICD9: 786.2] Diagnosis: Hyponatremia[ICD9: 276.1] Diagnosis: ALLERGIC RHINITIS[ICD9: 477.9] Ale Carlos MD, [facility] CPT-4: 40069 05/20/2014 ([id number]) 27113 EST. P ATIENT, LEVEL III Diagnosis: ESSENTIAL HYPERTENSION[ICD9: 401.9] Diagnosis: Cough[ICD9: 786.2] Ale Carlos MD, [facility] CPT-4: 26157 03/25/2014 ([id number]) 67748 EST. P ATIENT, LEVEL III Diagnosis: COUGH[ICD9: 786.2] Diagnosis: ALLERGIC RHINITIS[ICD9: 477.9] Nelly Carlos MD, [facility] CPT- 4: 14617 02/08/2014 ([id number]) 18594 EST. P ATIENT, LEVEL III Diagnosis: ESSENTIAL HYPERTENSION[ICD9: 401.9] Diagnosis: Nasal congestion[ICD9: 478.19] Ale Carlos MD, [facility] CPT-4: 60560 12/24/2013 ([id number]) 92355 EST. P ATIENT, LEVEL III Diagnosis: Seasonal allergies[ICD9: 477.9] Diagnosis: Nasal congestion[ICD9: 478.19] Diagnosis: ABNORMAL LOSS OF WEIGHT[ICD9: 783.21] Ale Carlos MD, [facility] CPT-4: 03473 11/20/2013 ([id number]) 18163 EST. P ATIENT, LEVEL III Diagnosis: ABNORMAL LOSS OF WEIGHT[ICD9: 783.21] Diagnosis: MALAISE AND FATIGUE[ICD9: 780.79] Diagnosis: Hyponatremia[ICD9: 276.1] Nelly Carlos MD, [facility] CPT- 4: 03338 10/30/2013 ([id number]) 27910 EST. P ATIENT, LEVEL III Diagnosis: Acute maxillary sinusitis[ICD9: 461.0] Diagnosis: COUGH[ICD9: 786.2] Ale Carlos MD, [facility] CPT-4: 88109 10/08/2013 ([id number]) 24512 EST. P ATIENT, LEVEL IV Diagnosis: ESSENTIAL HYPERTENSION[SNOMED: 00191772] Diagnosis: GENERALIZED ANXIETY DISEASE[ICD9: 300.02] Diagnosis: OSTEOARTH NOS-UNSPEC[ICD9: 715.90] Diagnosis: Coronary artery disease[ICD9: 414.00] Ale Carlos MD, [facility] CPT-4: 56505 06/18/2013 ([id number]) 82822 EST. P ATIENT, LEVEL III Diagnosis: ESSENTIAL HYPERTENSION[SNOMED: 95192322] Ale Carlos MD, [facility] CPT-4: 55379 04/04/2013 ([id number]) 79643 EST. P ATIENT, LEVEL IV Diagnosis: ESSENTIAL HYPERTENSION[SNOMED: 09066678] Diagnosis: Leukopenia[ICD9: 288.50] Diagnosis: Encounter for long-term (current) use of other medications[ICD9: V58.69] Ale Carlos MD, [facility] CPT-4: 12434 02/19/2013 ([id number]) 63926 EST. P ATIENT, LEVEL IV Diagnosis: ESSENTIAL HYPERTENSION[SNOMED: 70409889] Diagnosis: MILD COGNITIVE IMPAIREMT[ICD9: 331.83] Ale Carlos MD, [facility] CPT-4: 74773 10/16/2012 ([id number]) 36677 EST. P ATIENT, LEVEL IV Diagnosis: ESSENTIAL HYPERTENSION[SNOMED: 28764397] Diagnosis: GENERALIZED ANXIETY DISEASE[ICD9: 300.02] Diagnosis: IRRITABLE COLON[ICD9: 564.1] Ale Carlos MD, [facility] CPT-4: 67331 03/20/2012 15965 EST. PATIENT, LEVEL IV Diagnosis: ESSENTIAL HYPERTENSION[SNOMED: 66375853] Diagnosis: Osteoarthritis[ICD9: 715.90] Diagnosis: HYPERLIPIDEMIA[ICD9: 272.4] Ale Carlos MD, [facility] CPT-4: 59711 01/24/2012 02984 EST. PATIENT, LEVEL IV Diagnosis: ESSENTIAL HYPERTENSION[SNOMED: 36140275] Diagnosis: BPH W URINARY OBS/LUTS[ICD9: 600.01] Ale Carlos MD, [facility] CPT-4: 82037 12/20/2011 ([id number]) 69505 EST. P ATIENT, LEVEL III Diagnosis: Lump in the groin[ICD9: 789.30] Ale Carlos MD, [facility] CPT-4: 89748 12/09/2011 ([id number]) 16823 EST. P ATIENT, LEVEL IV Diagnosis: ESSENTIAL HYPERTENSION[SNOMED: 82726498] Diagnosis: Mild cognitive impairment[ICD9: 331.83] Ale Carlos MD, [facility] CPT-4: 55711 08/25/2011 ([id number]) 51372 EST. P ATIENT, LEVEL IV Diagnosis: ESSENTIAL HYPERTENSION[SNOMED: 45477399] Diagnosis: GENERALIZED ANXIETY DISEASE[ICD9: 300.02] Diagnosis: MILD COGNITIVE IMPAIREMT[ICD9: 331.83] Diagnosis: IRRITABLE COLON[ICD9: 564.1] Ale Carlos MD, [facility] CPT-4: 89495 06/23/2011 ([id number]) 79760 EST. 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 PATIENT, LEVEL I Diagnosis: ESSENTIAL HYPERTENSION[SNOMED: 52367141] Ale Carlos MD, [facility] CPT-4: 93118 03/23/2011 89491 EST. PATIENT, LEVEL III Diagnosis: ESSENTIAL HYPERTENSION[SNOMED: 44474039] Diagnosis: Laceration of finger, index[ICD9: 883.0] Ale Carlos MD, [facility] CPT-4: 20074 03/08/2011 12941 EST. PATIENT, LEVEL III Diagnosis: ESSENTIAL HYPERTENSION[SNOMED: 11096731] Diagnosis: Irritable bowel syndrome (IBS)[ICD9: 564.1] Ale Carlos MD, [facility] CPT-4: 90158 03/01/2011 34076 EST. PATIENT, LEVEL IV Diagnosis: Mild cognitive impairment with memory loss[ICD9: 331.83] Diagnosis: GENERALIZED ANXIETY DISEASE[ICD9: 300.02] Diagnosis: Bruising[ICD9: 924.9] Diagnosis: HYDROCELE[ICD9: 603.9] Ale Carlos MD, [facility] CPT-4: 32635 02/01/2011 80384 EST. PATIENT, LEVEL III Diagnosis: Testicular pain[ICD9: 608.9] Diagnosis: GENERALIZED ANXIETY DISEASE[ICD9: 300.02] Nelly Carlos MD, [facility] CPT-4: 01024 01/27/2011 96694 EST. PATIENT, LEVEL III Diagnosis: Arm bruise[ICD9: 923.9] Nelly Carlos MD, [facility] CPT-4: 05359 01/26/2011 OFFICE VISIT, NEW - LEVEL 4 Diagnosis: DIARRHEA[ICD9: 787.91] Diagnosis: Elevated liver function tests[ICD9: 790.6] Diagnosis: Abdominal discomfort[ICD9: 789.00] [facility] CPT- 4: 75772 01/06/2011 Plan of Care Planned Activity Notes C odes Status Date Visit Plan: Hypertension - well controll ed - continue with current medications, continue with no added salt diet. Pt has been encouraged to exercise daily.The pt has been advised to call the office if there are any acute concerns about change in blood pressure readings at home.Memory loss -stable - continue with aricept and namenda.labs to be done from [facility] 08/23/2016 Appointment: Ale Carlos WPtel: [facility] (30 min) Complex 08/23/2016 Patient [...] at home. 04/26/2016 Appointment: Ale Carlos WPtel: [facility]5 [facility] (30 min) Complex 04/26/2016 Patient Education: Patient Medication Summary Completed 04/26/2016 Visit Plan: Joint effusion - recommended drainage and referral to orthopedic surgeon for surgical debridement of bursa 02/17/2016 Appointment: Ale Carlos WPtel: [facility] [place] ([facility] min) Complex 02/17/2016 Patient Education: Patient Medication Summary Completed 02/17/2016 Visit Plan: Bursitis-right elbow-drained today in the office-increase anti inflammatories for the next 5 days as directed-call if symptoms do not resolve, swelling returns or new symptoms develop-patient verbalized understanding of plan. 02/09/2016 Appointment: Nelly Keen WPtel: [phone] [phone] [place] (30 min) Complex 02/09/2016 Patient Education: Patient Medication Summary Completed 02/09/2016 Patient Education: Patient Medication Summary Completed 02/05/2016 Care Plan: Metabolic Pending 02/05/2016 Visit Plan: Bursitis-right elbow-drained today in the office-increase anti inflammatories for the next 5 days as directed-call if symptoms do not resolve, swelling returns or new symptoms develop-patient verbalized understanding of plan. 02/03/2016 Appointment: Nelly Keen WPtel: [phone] (30 min) Complex 02/03/2016 Patient Education: Patient Medication Summary Completed 02/03/2016 Patient Education: Patient Medication Summary Completed 01/30/2016 Care Plan: Metabolic Due on Pending 01/30/2016 Visit Plan: Abdominal pain - nausea - Pt to have IV fluids at hospital 2015 Appointment: Ale Carlos WPtel: [facility] (30 min) Complex 01/26/2016 Patient [...] allergy spray. 2015 [facility]ment[phone] (30 min) Complex 01/21/2016 Patient Education: [...] treatment. 09/02/2015 App[facility]ment[phone] (15 min) Moderate 09/02/2015 Patient Education: [...] injection today 05/06/2015 App[facility]ment[phone] (15 min) Moderate 05/06/2015 Patient Education: Patient Medication Summary Completed 05/06/2015 Patient Education: Hypertension Completed 05/06/2015 Care Plan: COMPLETE CBC AUTOMATED LOINC : 74885-3 Ordered 05/06/2015 Visit Plan: Hypertension - well [...] medications. 03/05/2015 Appointment: [phone] ([facility] min) Complex 03/05/2015 Patient Education: [...] improved. 12/04/2014 Appointment: [phone] Follow up 12/04/2014 Patient Education: Patient [...] Plan: CT ABD & PELV 1/> [facility] : 46644-3 Ordered 09/24/2014 Visit Plan: Hypertension - well [...] THAT HE SHOULD NOT BE DRIVING TO [place] 07/26/2014 Appointment: Sick 07/26/2014 Appointment: Sick 07/26/2014 [...] medication list. 07/10/2014 Appointment: Ale Carlos WPtel: [address] [place], [place] [id number] Follow up 07/10/2014 Patient Education: Patient Medication Summary Completed 07/10/2014 Patient Education: Hypertension Completed 07/10/2014 Appointment: Ale Carlos WPtel: [address] [place], [place] [phone] Follow up 06/20/2014 Appointment: Ale Carlos WPtel: [facility]5 [facility] Follow up 06/10/2014 Visit Plan: Anxiety [...] change in blood pressure readings at home.Urinary gsaoqbwpp-IVT-iybeaq flomax to bedtime Dizziness-stop hydrocodone and ativan [...] 3 WEEKS 05/29/2014 Appointment: Ale Carlos WPtel: [facility] Sick 05/29/2014 Patient Education: Patient Medication Summary Completed 05/29/2014 Patient Education: Hypertension Completed 05/29/2014 Appointment: Ale Carlos WPtel: [facility] Lab Draw 05/23/2014 Patient Education: Patient Medication Summary Completed 05/23/2014 Visit Plan: Pneumonia - Pt has been diag nosed with pneumonia by physical exam. A chest xray has been ordered as have antibiotics. The pt is aware of the diagnosis and the need for acute treatment of this illness.Osacfobwq-ncfpq-uznqvas flonase nasal spray Hyponatremia-increase gatorade as directed 05/20/2014 Visit Plan: Pneumonia - Pt has been diag nosed with pneumonia by physical exam. A chest xray has been ordered as have antibiotics. The pt is aware of the diagnosis and the need for acute treatment of this illness.Aizqmihxn-btbqw-fxcmrnd flonase nasal spray Hyponatremia-increase gatorade as directedADDENDUM: RECOMMEND PATIENT START ON ALBUTEROL NEBULIZER TREATMENTS EVERY 4 HOURS NEEDED FOR SHORTNESS OF BREATH/WHEEZING. DX SECONDARY PNEUMONIA FROM INFLUENZA, COUGH 05/20/2014 Patient Education: Patient Medication Summary Completed 05/20/2014 Appointment: Ale Carlos WPtel: [phone] [id number] Injection 03/26/2014 Patient Education: Patient Medication [...] Merlos. 03/25/2014 Appointment: Ale Carlos WPtel: [phone] [id number] Follow up 03/25/2014 Patient Education: Patient Medication Summary Completed 03/25/2014 Patient Education: Hypertension Completed 03/25/2014 Visit Plan: Kdkpp-sarzckaue-gykukbw joel ngeal reflux-RX for protonix (patient is [...] at home. 12/24/2013 Appointment: Ale Carlos WPtel: [address] [place], [place] [phone] Follow up 12/24/2013 Patient Education: Patient Medication [...] portion size. 11/20/2013 Appointment: Ale Carlos WPtel: [address] [place], [place] [phone] Follow up 11/20/2013 Patient Education: Patient Medication Summary Completed 11/20/2013 Appointment: Ale Carlos WPtel: [address] [place], [place] [phone] Follow up 11/06/2013 Visit Plan: Weight loss-increase portion s-add snacks in the morning and afternoon-follow up in 3 weeks for weight checkLow sodium-check labs-restart gatorade Qvhpcrx-kgojhq-aypco labs and UA 10/30/2013 Patient Education: Patient Medication Summary Completed 10/30/2013 Appointment: Ale Carlos WPtel: [address] [place], [place] [phone] Follow up 10/16/2013 Visit Plan: Sinusitis - [...] Dr. Merlos. 06/18/2013 [facility]ment[phone] [facility] Follow up 06/18/2013 Patient Education: Patient [...] concerns. 04/04/2013 App[facility]ment[phone] [facility] Follow up 04/04/2013 Patient Education: Patient [...] report. 02/19/2013 [facility]ment[phone] [facility] Follow up 02/19/2013 Patient Education: Patient [...] loss. 10/16/2012 [facility]ment[phone] [facility] Follow up 10/16/2012 Patient Education: Patient [...] return. 06/19/2012 App[facility]ment: [phone] [facility] Follow up 06/19/2012 Patient Education: Patient [...] the bentyl. 03/20/2012 App[facility]ment: [phone] [facility] Follow up 03/20/2012 Patient Education: Patient Medication Summary Completed 03/20/2012 Patient Education: High Blood Pressure: Essential Hypertension Completed 03/20/2012 [facility]ment: [phone] [facility] Follow up 02/22/2012 Visit Plan: Hypertension [...] as needed. 01/24/2012 Appointment: Ale Carlos WPtel: [facility] Follow up 01/24/2012 Patient Education: Patient [...] have the biopsy until okayed by his fee clerk.. I anticipate it will be at least 4-6 months before he can be off of the plavix and aspirin for additonal procedures unless it is of extreme urgency. 12/20/2011 Appointment: Ale Carlos WPtel: [facility] Follow up 12/20/2011 Patient Education: Patient Medication Summary Completed 12/20/2011 Patient Education: High Blood Pressure: Essential Hypertension Completed 12/20/2011 Appointment: Ale Carlos WPtel: [facility] Other 12/13/2011 Visit Plan: Pain in groin post heart cat h with increased discomfort and increased size - will order an ultrasound for today. 12/09/2011 Appointment: Ale Carlos WPtel: [facility] Other 12/09/2011 Patient Education: Patient Medication [...] either medication. 08/25/2011 Appointment: Ale Carlos WPtel: [facility] Other 08/25/2011 Patient Education: Patient Medication Summary [...] low doses. 2011 Appointment: Ale Carlos WPtel: [address] [place], [place] [phone] Other 06/23/2011 Patient Education: Patient Medication Summary Completed 06/23/2011 Patient Education: High Blood Pressure: Essential Hypertension Completed 06/23/2011 Appointment: Ale Carlos WPtel: [address] [place], [place] [phone] [place] Other 04/26/2011 Visit Plan: Hypertension - [...] seeds, etc. 04/19/2011 Appointment: Ale Carlos WPtel: [facility] Other 04/19/2011 Patient Education: Patient Medication Summary Completed 04/19/2011 Patient Education: High Blood Pressure: Essential Hypertension Completed 04/19/2011 Patient Education: Diverticulosis Diet Completed 04/19/2011 Appointment: Nelly Keen WPtel: [phone] Other 03/23/2011 Patient Education: Patient Medication Summary Completed 03/23/2011 Patient Education: High Blood Pressure: Essential Hypertension Completed 03/23/2011 Visit Plan: Record blood pressure and he art rate at home and drop the readings by the office in two weeks. No change in medications today. Laceration - removed suture today - pt to call if any complications arise. 03/08/2011 Appointment: Ale Carlos WPtel: [facility] Other 03/08/2011 Patient Education: Patient Medication [...] day. 2010 Appointment: Ale Carlos WPtel: [phone] [facility] [place] Other 03/01/2011 Patient Education: Patient Medication Summary Completed 03/01/2011 Patient Education: High Blood Pressure: Essential Hypertension Completed 03/01/2011 Appointment: Nelly Keen WPtel: [phone] [phone] [place] Injection 02/25/2011 Patient Education: Patient Medication Summary Completed 02/25/2011 Appointment: Ale Carlos WPtel: [phone] [facility] [place] Injection 02/16/2011 Patient Education: Patient Medication Summary Completed 02/16/2011 Appointment: Ale Carlos WPtel: [phone] [facility] [place] Injection 02/09/2011 Patient Education: Patient Medication Summary Completed 02/09/2011 Appointment: Ale Carlos WPtel: [facility] [place] Follow up 02/02/2011 Visit Plan: Hydrocele [...] with his son - Kenji Dash in [place].Upon our conversation [id number], Kenji vocalized concerns for his Dad's memory. He stated that he has noticed his father not being as quick in his cognitive functioning, he has noticed some concerns with driving as well. He states that he will discuss these concerns with his parents and other siblings. 02/01/2011 Appointment: Ale Carlos WPtel: [facility] Other 02/01/2011 Patient Education: Patient Medication Summary Completed 02/01/2011 Visit Plan: Testicular pain-improved in the office today-but apparently had episode of acute pain last night-check ultrasound. UA done in the office negative. Anxiety - the patient continues with symptoms of anxiety (tachycardia, overwhelming sensations, stress, insomnia, etc). Instructed patient okay to take lorazepam every 8 hours as needed. 01/27/2011 Appointment: TerranceAle WPtel: [facility] [place] New Patient 01/27/2011 Patient Education: Patient Medication Summary Completed 01/27/2011 Visit Plan: Bruising/hematoma left arm-d iscussed natural and expected course of this diagnosis and to alert me if symptoms do not follow expected course or if any worse, Continue with ice/heat as needed for discomfort. Call for any concerns. 01/26/2011 Appointment: Nelly Keen WPtel: [phone] [place] Other 01/26/2011 Patient Education: Patient Medication [...] full course. 01/15/2011 Appointment: Nelly Keen WPtel: [phone] [place] Other 01/15/2011 Patient Education: Patient Medication [...] free diet. 2010 Appointment: Ale Carlos WPtel: [facility] New Patient 01/06/2011 Patient Education: Patient Medication Summary Completed 01/06/2011 Instructions Comment INCREASE GATORADE TO THREE TIMES PER DAY X 2 DAYS THEN TWICE DAILY stop doxycycline START CEFDINIR AND ZITHROMAX . Pneumonia - Pt has been diagnosed with pneumonia by physical exam. A chest xray has been ordered as have antibiotics. The pt is aware of the diagnosis and the need for acute treatment of this illness. Rhrpjbsko-vbiwx-fmejliw flonase nasal spray Hyponatremia-increase gatorade as directed . Hypertension - unc ontrolled - the [...] up to two times a day. . Pain in groin post heart cath [...] IV fluids at hospital I sent a prescriptio n of generic zyrtec to [facility] - if it is expensive get [...] and cbc prevnar 13 injection today . Joint effusion - r ecommended drainage and referral to orthopedic surgeon for surgical debridement of bursa Nasal spray- use twi ce daily, one [...] discomfort. Call for any concerns. INCREASE YOUR MELOXI CAM (MOBIC) TO 1/2 [...] take lorazepam every 8 hours as needed. stop losartan - [facility] blood pressure and heart rate twice [...] to be making Dr. Dash nauseated. . Pneumonia - Pt has been diagnosed with pneumonia by physical exam. A chest xray has been ordered as have antibiotics. The pt is aware of the diagnosis and the need for acute treatment of this illness. Slpglowia-wwzns-ztnstbm flonase nasal spray Hyponatremia-increase gatorade as directed ADDENDUM: RECOMMEND PATIENT START ON ALBUTEROL NEBULIZER TREATMENTS EVERY 4 HOURS NEEDED FOR SHORTNESS OF BREATH/WHEEZING. DX SECONDARY PNEUMONIA FROM INFLUENZA, COUGH INCREASE GATORADE TO TWICE DAILY . Abdominal pain-patient reports worseni ng symptoms-schedule CT abdomen/pelvis to evaluate for acute abnormality Low sodium-increase gatorade to twice HTN-well controlled-no change in treatment . Chronic Depression and anxiety-improved over the past several weeks- the pt has symptoms of chronic anxiety and depression that have been fairly well controlled since the last office visit. The pt has expected periods of exacerbation with abatement of the symptoms with change in situational exposure. No change in current medications. INSTRUCTED PATIENT THAT HE SHOULD NOT BE DRIVING TO [place] on the [place] - decr ease the [...] and namenda. labs to be done from [facility] Blood pressure check today in the office-improving. INCREASE GATORADE TO TWICE DAILY . Abdominal pain-patient reports worseni ng symptoms-schedule CT abdomen/pelvis to evaluate for acute abnormality Low sodium-increase gatorade to twice HTN-well controlled-no change in treatment . Hypertension - we ll controlled - [...] continue to avoid nuts, seeds, etc. . Isobp-dfwlngfyn-fc spect laryngeal reflux-RX for protonix (patient is [...] are not improving. Anxiety -has improved. . Hypertension - we ll controlled - [...] 2 weeks, then use as needed. . Hypertension and C oronary artery disease- [...] have the biopsy until okayed by his fee clerk.. I anticipate it will be at least 4-6 months before he can be off of the plavix and aspirin for additonal procedures unless it is of extreme urgency. CHECK LABS-CBC, CMP, UA WITH C&S IF INDICATED . Weight loss-increase portions-add [facility] in the morning and afternoon-follow up in 3 weeks for weight check Low sodium-check labs-restart gatorade Icubazj-fgyypo-lwfkt labs and UA INCREASE ARICEPT (DO NEPEZIL) TO 5MG TAKEN [...] IN THE EVENING OF 01/15/11 [address] [place] [address] Carlos. Recommend Lactobacillus 1 orally [...] with his son - Kenji Dash in [place]. Upon our conversation mcmr-nyd-qkbzx, Kenji vocalized concerns for his Dad's memory. He stated that he has noticed his father not being as quick in his cognitive functioning, he has noticed some concerns with driving as well. He states that he will discuss these concerns with his parents and other siblings. Pt is to try 1/2 pil l [...] in blood pressure readings at home. Urinary dhfemgaii-JJG-kkdnhr flomax to bedtime Dizziness-stop hydrocodone and ativan stop lisinopril and start on losartan 50mg [...] blood pressure readings at home. INCREASE YOUR MELOXI CAM (MOBIC) TO 1/2 PILL TWICE DAILY X 5 DAYS CALL IF YOUR ELBOWS SWELLS AGAIN OR YOU DEVELOP PAIN OR OTHER CONCERNS . Bursitis-right elbow-drained today in the office-increase anti inflammatories for the next 5 days as directed-call if symptoms do not resolve, swelling returns or new symptoms develop-patient verbalized understanding of plan. . Abdominal symptoms with elevated liver enzymes- [...] MIKAELA if symptoms of irritable colon return. decrease Protonix (p antoprazole) to ONE pill [...]
--- OUTSIDE RECORDS SUMMARY | 2019-07-16 07:36 | XMS REPORT | CCD ---
Author Author Kenneth Carlos Organization Ale Carlos MD, [facility] Address [address] [place] [address] Phone Care Team Providers Care Housekeeping Manager Name Role Phone Ale Carlos PP Unavailable CCM Unavailable Summary Purpose Interface Exchange Insurance Providers Payer name Policy type / Coverage type Covered democrat ID Effective Begin Date Effective End Date WPS Medicare Part B Medicare Part B [id number] Unknown Unknown [facility] icare Part B [id number] Unknown Unk nown Family history Runs in the family Diagnosis Age At Onset No Family Disease Entered N/A Mother Diagnosis Age At Onset No Family Disease Entered N/A Father Diagnosis Age At Onset Heart disease Unknown Social History Social History Element Codes Description Effective Dates Number of children Unknown 3 3 ([place], [place], [place]) 2014 Living arrangements Unknown House 01/11/2011 Number of adults in household Unknown 2 01/11/2011 Education level Unknown Post-Graduate PHD in chemistry 01/11/2011 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 Marital status Unknown M arried 01/06/[address]: 808091938 Never smoker 01/06/[address]: 666168959 Quit this year quit 200401/06/2011 Has the [...] Date Stop Date Sta tus Fill Instructions citalopram 10 mg tablet RxNorm: 774629 TAKE 1 TABLET BY MOUTH EVERY DAY 10/07/2016 03/05/2017 Ac tive Patient requests 90 days supply mirtazapine 15 mg ta blet RxNorm: 764822 TAKE ONE TABLET BY MO UTH EVERY DAY 10/06/2016 09/30/2017 Ac tive mirtazapine 15 mg ta blet RxNorm: 089021 TAKE ONE TABLET BY MO UTH EVERY DAY 10/05/2016 10/05/2016 In active Patient requests 90 days supply amlodipine 10 mg tablet RxNorm: 754148 TAKE 1 TABLET BY MOUTH EVERY DAY 09/14/2016 09/08/2017 Ac tive clopidogrel 75 mg ta blet RxNorm: 624768 TAKE 1 TABLET BY MOUT H EVERY DAY 06/28/2016 12/24/2016 Ac tive lisinopril 20 mg tablet RxNorm: 545875 TAKE 1 TABLET DAILY 05/31/2016 11/26/2016 Active donepezil 10 mg tablet RxNorm: 228892 TAKE 1 TABLET BY MOUTH ONCE DAILY 05/11/2016 11/06/2016 Ac tive donepezil 10 mg tablet RxNorm: 147697 TAKE 1 TABLET BY MOUTH ONCE DAILY 04/26/2016 05/10/2016 In active Mobic 15 mg tablet RxNorm: 512710 1/2 Tablet(s) daily 04/19/2016 10/15/2016 Active citalopram 10 mg tablet RxNorm: 206942 TAKE 1 TABLET BY MOUTH EVERY DAY 04/06/2016 04/25/2016 In active cetirizine 10 mg tablet RxNorm: 7600913 Tablet(s) 1 TABLET(S) PO DAILY TO TAKE I NSTEAD OF THE CLARITIN 03/30/2016 02/22/2017 Active amlodipine 10 mg tablet RxNorm: 880203 TAKE 1 TABLET BY MOUTH EVERY DAY 03/08/2016 03/02/2017 Ac tive amlodipine 10 mg tablet RxNorm: 166590 1 Tablet(s) PO daily TAKE 1 TABLET BY MO UTH ONCE DAILY 03/03/2016 03/07/2016 Inactive Requip 0.25 mg tablet RxNorm: 892695 1 Tablet(s) PO BID 03/03/2016 09/13/2016 Inactive Mobic 15 mg tablet RxNorm: 363502 1 Tablet(s) daily not refilled on -17t a 02/23/2016 04/18/2016 In active cetirizine 10 mg tablet RxNorm: 1620214 1 TABLET(S) PO DAILY TO TAKE INSTEAD OF THE CLARITIN 02/19/2016 03/19/2016 Inactive lisinopril 20 mg tablet RxNorm: 207757 TAKE 1 TABLET DAILY 02/18/2016 05/17/2016 Inactive Namenda 10 mg tablet RxNorm: 398369 Tablet(s) TAKE 1 TABLET BY MOUTH TWICE D AILY. 02/17/2016 No Stop Date Active lisinopril 20 mg tablet RxNorm: 742598 TAKE 1 TABLET DAILY 01/23/2016 06/20/2016 Inactive cetirizine 10 mg tablet RxNorm: 2256543 1 Tablet(s) PO daily to take instead of the claritin 01/21/2016 02/18/2016 Inactive amlodipine 10 mg tablet RxNorm: 193773 1 Tablet(s) PO daily TAKE 1 TABLET BY MO UTH ONCE DAILY 12/02/2015 03/02/2016 Inactive clopidogrel 75 mg ta blet RxNorm: 857874 TAKE 1 TABLET BY MOUT H EVERY DAY 11/25/2015 05/22/2016 In active Mobic 15 mg tablet RxNorm: 713168 TAKE(1/2) TABLET DAILY. 11/17/2015 02/22/2016 Inactive lisinopril 20 mg tablet RxNorm: 260364 TAKE 1 TABLET DAILY 11/17/2015 01/15/2016 Inactive Mobic 15 mg tablet RxNorm: 045789 1/2 Tablet(s) PO daily TAKE (1/2) TABLET DAILY. 11/12/2015 11/16/2015 Inactive citalopram 10 mg tablet RxNorm: 171896 TAKE 1 TABLET BY MOUTH EVERY DAY 10/27/2015 04/05/2016 In active Requip 0.25 mg tablet RxNorm: 290082 1 Tablet(s) PO BID 10/15/2015 02/11/2016 Inactive Requip 0.25 mg tablet RxNorm: 152229 1 Tablet(s) PO BID 10/15/2015 10/14/2015 Inactive mirtazapine 15 mg ta blet RxNorm: 567085 1 Tablet(s) PO daily 09/08/2015 10/01/2016 Inactive donepezil 10 mg tablet RxNorm: 254538 TAKE 1 TABLET DAILY 09/01/2015 04/25/2016 Inactive amlodipine 10 mg tablet RxNorm: 791131 1 Tablet(s) PO daily TAKE 1 TABLET BY MO UTH ONCE DAILY 08/18/2015 12/01/2015 Inactive clopidogrel 75 mg ta blet RxNorm: 591998 1 Tablet(s) PO daily TAKE 1 TABLET DAILY 05/20/2015 11/24/2015 In active Mobic 15 mg tablet RxNorm: 000648 Tablet(s) TAKE (1/2) TABLET DAILY. 04/23/2015 10/19/2015 In active lisinopril 20 mg tablet RxNorm: 604161 TAKE 1 TABLET DAILY 04/22/2015 11/16/2015 Inactive Mobic 15 mg tablet RxNorm: 360391 TAKE (1/2) TABLET DAILY. 04/22/2015 04/22/2015 Inactive sulfamethoxazole 400 mg-trimethoprim 80 mg tablet RxNorm: 821952 1/2 Tablet(s) PO nancy y 03/11/2015 04/09/2015 Inactive Vesicare 5 mg tablet RxNorm: 073101 1 Tablet(s) PO 03/11/2015 05/09/2015 Inactive Protonix 40 mg table t,delayed release RxNorm: 077438 1 Tablet(s) PO BID 03/05/2015 09/30/2015 In active ok to change from [address] Archana rivera clopidogrel 75 mg ta blet RxNorm: 943493 1 Tablet(s) PO daily TAKE 1 TABLET DAILY 02/20/2015 05/19/2015 In active Namenda 10 mg tablet RxNorm: 811628 Tablet(s) TAKE 1 TABLET BY MOUTH TWICE D AILY. 01/22/2015 02/16/2016 Inactive amlodipine 10 mg tablet RxNorm: 447446 TAKE 1 TABLET BY MOUTH ONCE DAILY 01/14/2015 08/17/2015 In active donepezil 10 mg tablet RxNorm: 764491 TAKE 1 TABLET DAILY 01/06/2015 08/31/2015 Inactive Levsin 0.125 mg tablet RxNorm: 4174611 1 Tablet(s) PO QID as needed FOR ABD REJI N 11/05/2014 12/03/2014 In active Mobic 15 mg tablet RxNorm: 960198 1/2 Tablet(s) daily TAKE (1/2) TABLET DA MOIZ. 10/01/2014 04/21/2015 Inactive ciprofloxacin 500 mg tablet RxNorm: 000869 1 Tablet(s) PO BID 09/27/2014 10/01/2014 Inactive Flagyl 500 mg tablet RxNorm: 872897 1 Tablet(s) PO TID 09/27/2014 10/03/2014 Inactive take probiotic BID donepezil 10 mg tablet RxNorm: 402224 1/2 Tablet(s) PO BID 09/24/2014 01/05/2015 Inactive lisinopril 20 mg tablet RxNorm: 485434 TAKE 1 TABLET DAILY 09/05/2014 04/21/2015 Inactive amlodipine 10 mg tablet RxNorm: 772739 1 Tablet(s) PO daily 09/02/2014 12/30/2014 Inactive mirtazapine 15 mg ta blet RxNorm: 277354 1 Tablet(s) PO daily 08/28/2014 09/07/2015 Inactive donepezil 10 mg tablet RxNorm: 321348 1 Tablet(s) PO daily 08/28/2014 09/23/2014 Inactive citalopram 10 mg tablet RxNorm: 084001 1 Tablet(s) PO daily 08/28/2014 03/25/2015 Inactive citalopram 10 mg tablet RxNorm: 517407 1 Tablet(s) PO daily 08/07/2014 08/27/2014 Inactive citalopram 10 mg tablet RxNorm: 797392 1 Tablet(s) PO daily 08/07/2014 08/06/2014 Inactive Flagyl 500 mg tablet RxNorm: 606694 1 Tablet(s) PO TID 08/02/2014 08/01/2014 Inactive take probiotic BID Flagyl 500 mg tablet RxNorm: 929481 1 Tablet(s) PO TID 08/02/2014 08/08/2014 Inactive take probiotic BID tamsulosin ER 0.4 mg capsule,extended release 24 hr RxNorm: 521590 1 Capsule(s) PO QHS 06/06/2014 03/10/2015 Inactive TAKE AT BEDTIME escitalopram 5 mg ta blet RxNorm: 393276 1 Tablet(s) PO QPM 06/06/2014 08/06/2014 Inactive doxycycline hyclate 100 mg tablet RxNorm: 697547 1 Tablet(s) PO BID 05/31/2014 05/30/2014 Inactive doxycycline hyclate 100 mg tablet RxNorm: 159146 1 Tablet(s) PO BID 05/31/2014 06/06/2014 Inactive please deliver if not picked by 3pm Aricept 5 mg tablet RxNorm: 953226 1 Tablet(s) PO BID 05/29/2014 08/27/2014 Inactive losartan 50 mg tablet RxNorm: 787052 1/2 Tablet(s) PO daily 05/29/2014 12/28/2015 Inactive clopidogrel 75 mg ta blet RxNorm: 470730 1 Tablet(s) PO daily 05/27/2014 05/26/2014 Inactive Mobic 15 mg tablet RxNorm: 585933 TAKE (1/2) TABLET DAILY. 05/27/2014 09/30/2014 Inactive clopidogrel 75 mg ta blet RxNorm: 403606 TAKE 1 TABLET DAILY 05/27/2014 02/19/2015 Inactive Mobic 15 mg tablet RxNorm: 449384 1/2 Tablet(s) PO daily TAKE (1/2) TABLET DAILY. 05/27/2014 05/26/2014 Inactive prednisone 20 mg tablet RxNorm: 033798 1 Tablet(s) PO BID 05/21/2014 05/25/2014 Inactive albuterol sulfate 2. 5 mg/0.5 mL solution for nebulization RxNorm: 333474 1 inhale INH Q4H as needed 05/21/2014 09/01/2015 Inactive prednisone 20 mg tablet RxNorm: 362643 1 Tablet(s) PO BID 05/21/2014 05/20/2014 Inactive cefdinir 300 mg capsule RxNorm: 127126 1 Capsule(s) PO BID 05/20/2014 05/26/2014 Inactive Zithromax Z-Dequan 250 mg tablet RxNorm: 694053 1 Tablet(s) PO UD 05/20/2014 05/24/2014 Inactive zpack lorazepam 0.5 mg tablet RxNorm: 297905 1/2 to 1 Tablet(s) PO Q8 PRN as needed 04/30/2014 06/05/2014 In active Namenda 10 mg tablet RxNorm: 563768 TAKE 1 TABLET BY MOUTH TWICE DAILY. 04/15/2014 01/21/2015 In active Namenda 10 mg tablet RxNorm: 519658 1 Tablet(s) PO BID 04/15/2014 04/14/2014 Inactive losartan 50 mg tablet RxNorm: 429529 1 Tablet(s) PO daily 03/25/2014 05/28/2014 Inactive Protonix 40 mg table t,delayed release RxNorm: 409827 1 Tablet(s) PO QPM 03/21/2014 06/18/2014 In active ok to change from [address] Archana rivera fluticasone 50 mcg/a ctuation nasal spray,suspension RxNorm: 383589 1 [place] NASAL BID 03/04/2014 09/29/2014 Inactive Protonix 20 mg table t,delayed release RxNorm: 860981 1 Tablet(s) PO QPM 02/08/2014 03/20/2014 In active fluticasone 50 mcg/a ctuation nasal spray,suspension RxNorm: 801367 1 [place]nelly NASAL BID 01/30/2014 03/03/2014 Inactive fluticasone 50 mcg/a ctuation nasal spray,suspension RxNorm: 111488 1 Donnelly NASAL BID 12/24/2013 01/29/2014 Inactive fluticasone 50 mcg/a ctuation nasal spray,suspension RxNorm: 574864 1 Donnelly NASAL BID 11/20/2013 12/23/2013 Inactive doxycycline hyclate 100 mg capsule RxNorm: 8175954 1 Capsule(s) PO BID 10/08/2013 10/17/2013 In active doxycycline hyclate 100 mg capsule RxNorm: 0476069 capsule oral 10/08/2013 10/29/2013 Inactive fluticasone 50 mcg/a ctuation nasal spray,suspension RxNorm: 850084 spray,suspension nasl 10/08/2013 11/19/2013 Inactive fluticasone 50 mcg/a ctuation nasal spray,suspension RxNorm: 332193 1 Donnelly NASAL BID Nasal spray- use twice daily, one spray per nostril twice daily, after 30 minutes, rinse out nose with saline spray. 10/08/2013 10/29/2013 Inactive mirtazapine 7.5 mg t ablet RxNorm: 969858 1/2 Tablet(s) PO daily 08/30/2013 08/27/2014 Inactive lorazepam 0.5 mg tablet RxNorm: 792928 1/2 Tablet(s) PO Q8 PRN 08/21/2013 04/29/2014 Inactive Aricept 5 mg tablet RxNorm: 525262 Tablet(s) PO TAKE 1 TABLET DAILY 08/21/2013 05/28/2014 In active Plavix 75 mg tablet RxNorm: 649513 Tablet(s) PO TAKE 1 TABLET DAILY 05/24/2013 12/04/2014 In active clopidogrel 75 mg ta blet RxNorm: 498921 tablet oral 05/24/2013 05/26/2014 Inactive Plavix 75 mg tablet RxNorm: 739269 1 Tablet(s) PO daily 05/23/2013 05/23/2013 Inactive meloxicam 15 mg tablet RxNorm: 398245 tablet oral 04/26/2013 03/25/2014 Inactive Mobic 15 mg tablet RxNorm: 710730 Tablet(s) PO TAKE (1/2) TABLET DAILY. 04/26/2013 05/26/2014 In active Mobic 15 mg tablet RxNorm: 331102 1/2 Tablet(s) PO daily 04/25/2013 04/25/2013 Inactive lisinopril 20 mg tablet RxNorm: 101307 1 Tablet(s) PO 04/04/2013 03/24/2014 Inactive finasteride 5 mg tablet RxNorm: 993305 tablet oral 03/22/2013 09/01/2015 Inactive lisinopril 10 mg tablet RxNorm: 281676 1 Tablet(s) PO daily 02/14/2013 04/03/2013 Inactive donepezil 5 mg tablet RxNorm: 674998 tablet oral 02/07/2013 12/24/2013 Inactive Influenza Virus Vacc ine 0.5 mL RxNorm: IM 02/06/2013 02/06/2013 Inactive Aricept 5 mg tablet RxNorm: 149218 1 Tablet(s) PO daily 02/06/2013 08/04/2013 Inactive tamsulosin ER 0.4 mg capsule,extended release 24 hr RxNorm: 686952 capsule,extended release 24hr oral 12/21/2012 06/05/2014 Inactive Plavix 75 mg tablet RxNorm: 676004 1 Tablet(s) PO daily 12/05/2012 05/03/2013 Inactive lorazepam 0.5 mg tablet RxNorm: 279321 1/2 Tablet(s) PO Q8 PRN 11/14/2012 08/20/2013 Inactive lisinopril 10 mg tablet RxNorm: 104136 1 Tablet(s) PO daily 08/08/2012 02/03/2013 Inactive Aricept 5 mg tablet RxNorm: 340655 1 Tablet(s) PO daily 08/08/2012 02/03/2013 Inactive Plavix 75 mg tablet RxNorm: 280555 1 Tablet(s) PO daily 07/04/2012 11/30/2012 Inactive Mobic 15 mg tablet RxNorm: 010273 1/2 Tablet(s) PO daily 03/20/2012 04/13/2013 Inactive Namenda 10 mg tablet RxNorm: 127752 1 Tablet(s) PO BID 02/22/2012 04/11/2014 Inactive lorazepam 0.5 mg tablet RxNorm: 542283 1/2 Tablet(s) PO Q8 PRN 02/02/2012 11/13/2012 Inactive lisinopril 10 mg tablet RxNorm: 322347 1 Tablet(s) PO daily 01/24/2012 07/21/2012 Inactive lisinopril 10 mg tablet RxNorm: 565349 1/2 Tablet(s) PO daily 12/20/2011 01/23/2012 Inactive Aricept 5 mg tablet RxNorm: 508166 1 Tablet(s) PO daily 07/14/2011 08/06/2012 Inactive Mobic 15 mg tablet RxNorm: 637292 1 Tablet(s) PO daily 07/14/2011 03/19/2012 Inactive Bentyl 10 mg Cap RxNorm: 501382 1 Capsule(s) PO daily one pill daily and every 6 hours if needed for bowel spasms. 06/23/2011 03/20/2012 Inactive amlodipine 5 mg Tab RxNorm: 662416 2 Tablet(s) PO daily 03/08/2011 12/08/2011 Inactive ZOSTAVAX 19,400 unit Sub-Q Soln RxNorm: 6811161 SQ 02/2502/25/2011 Inactive Pneumovax 23 25 mcg/ 0.5 mL Injection RxNorm: 568016 Milliliter(s) Inj 02/16/2011 02/16/2011 In active Influenza Virus Vacc ine 0.5 mL RxNorm: IM 02/09/2011 02/09/2011 Inactive Namenda 10 mg tablet RxNorm: 254877 1 Tablet(s) PO BID 02/01/2011 02/21/2012 Inactive dicyclomine 10 mg ca psule RxNorm: 279930 capsule oral 01/20/2011 10/29/2013 Inactive Namenda 5 mg tablet RxNorm: 648833 tablet oral 01/20/2011 12/24/2013 Inactive dicyclomine 20 mg ta blet RxNorm: 357316 tablet oral 01/15/2011 10/29/2013 Inactive Flagyl 500 mg Tab RxNorm: 963007 1 Tablet(s) PO TID 01/07/2011 01/06/2011 Inactive Cipro 500 mg Tab RxNorm: 537750 1 Tablet(s) PO BID 01/07/2011 06/23/2011 Inactive Cipro 500 mg Tab RxNorm: 982512 1 Tablet(s) PO BID 01/07/2011 01/06/2011 Inactive Flagyl 500 mg Tab RxNorm: 700354 1 Tablet(s) PO TID 01/07/2011 06/23/2011 Inactive metronidazole 500 mg tablet RxNorm: 308008 tablet oral 01/07/2011 12/24/2013 Inactive sulfamethoxazole 400 mg-trimethoprim 80 mg tablet RxNorm: 055902 tablet oral 12/24/2010 03/10/2015 In active mirtazapine 15 mg ta blet RxNorm: 933809 tablet oral 11/14/2010 12/24/2013 Inactive lisinopril 10 mg tablet RxNorm: 657792 tablet oral 11/14/2010 12/24/2013 Inactive doxycycline hyclate 100 mg tablet RxNorm: 962724 tablet oral 11/04/2010 12/24/2013 Inactive diphenoxylate-atropi ne 2.5 mg-0.025 mg tablet RxNorm: 6365748 tablet oral 11/03/2010 10/29/2013 In active ciprofloxacin 500 mg tablet RxNorm: 141993 tablet oral 11/01/2010 10/29/2013 Inactive aspirin 81 mg Cap, D elayed Release RxNorm: 394144 1 Capsule(s) PO daily No Start Date Active Allergy Relief (ceti rizine) oral RxNorm: 585712 oral No S tart Date Active Vitamin D 1,000 unit Tab RxNorm: 937805 1 Tablet(s) PO daily No Start Date Active Senior Vitamin Tab RxNorm: 1 Tablet(s) PO daily No Start Date Active sulfamethoxazole 500 mg Tab RxNorm: 075873 1/2 Tablet(s) PO daily No Start Date 12/24/2013 Inactive Plavix 75 mg Tab RxNorm: 290276 1 Tablet(s) PO daily No Start Date 01/26/2011 Inactive hydrocodone 5 mg-alexey taminophen 325 mg tablet RxNorm: 751981 1 Tablet(s) PO Q6 as needed No Start Date 06/05/2014 Inactive Proscar 5 mg Tab RxNorm: 115556 1 Tablet(s) PO daily No Start Date 09/01/2015 Inactive Plavix 75 mg tablet RxNorm: 765936 1 Tablet(s) PO daily No Start Date 07/03/2012 Inactive albuterol sulfate 2. 5 mg/0.5 mL solution for nebulization RxNorm: 773629 1 inhale INH Q4H as needed No Start Date 05/20/2014 Inactive amlodipine 5 mg Tab RxNorm: 585245 1 Tablet(s) PO daily No Start Date 03/07/2011 Inactive Namenda 5 mg Tab RxNorm: 982264 1 Tablet(s) PO daily No Start Date 06/23/2011 Inactive fluocinonide 0.05 % Ointment RxNorm: 094358 1 TOP BID PRN No Start Date 12/24/2013 Inactive amlodipine 5 mg tablet RxNorm: 423277 1 Tablet(s) PO daily No Start Date 09/01/2014 Inactive lisinopril Oral RxNorm: Oral No Start Date 12/08/2011 Inactive simvastatin 20 mg Tab RxNorm: 927716 1 Tablet(s) PO daily No Start Date 06/06/2014 Inactive Bentyl 20 mg Tab RxNorm: 747827 1 Tablet(s) PO Q6 PRN No Start Date 06/23/[address] Quintero Bentyl 10 mg Cap RxNorm: 404208 1 Capsule(s) PO BID No Start Date 06/22/2011 Inactive Plavix 75 mg Tab RxNorm: 063440 1 Tablet(s) PO every other day No Start Date 08/24/2011 Inactive lorazepam 0.5 mg tablet RxNorm: 973985 1/2 Tablet(s) PO Q8 PRN No Start Date 02/01/2012 Inactive lisinopril 10 mg tablet RxNorm: 018471 1 Tablet(s) PO daily No Start Date 12/19/2011 Inactive Flomax 0.4 mg 24 hr Cap RxNorm: 362583 1 Capsule(s) PO daily No Start Date 05/28/2014 Inactive Aricept 5 mg Tab RxNorm: 113736 1 Tablet(s) PO daily No Start Date 07/13/2011 Inactive Levsin 0.125 mg tablet RxNorm: 1582060 1 Tablet(s) PO QID as needed FOR ABD REJI N No Start Date 11/04/2014 Inactive mirtazapine 7.5 mg t ablet RxNorm: 707457 1/2 Tablet(s) PO daily No Start Date 08/29/2013 Inactive Mobic 15 mg Tab RxNorm: 337129 1 Tablet(s) PO daily No Start Date 07/13/2011 Inactive Medication Administered Medication Codes Instruc tions Start Date Status Influenza Virus Vaccine 0.5 mL RxNorm: 02/06/2013 No longer Active ZOSTAVAX 19,400 unit Sub-Q Soln RxNo rm: [id number] 02/25/2011 No longer A ctive Pneumovax 23 25 mcg/0.5 mL Injection RxNorm: 422198 Milliliter 02/16/2011 No longer Active Influenza Virus [...] Observation Code Item Item Code Result Date Uric Acid Body Fluid 791196 URIC ACID-FLUID 4.3 mg/dL 02/18/2016 Body Fluid Crystals Source RIGHT ELBOW 6 Body Fluid Crystals CRYSTALS, BODY FLUID 02/18/2016 Metabolic Ord15 NA 128 mEq/L 02/05/2016 [...] Ord15 CALCIUM 9.1 mg/dL 02/05/2016 Comp Metabolic Zej228 NA 129 mEq/L 10/08/2015 Comp Metabolic Xut467 K 4.7 mEq/L 10/08/2015 Comp Metabolic Jnp580 CL 98 mEq/L 10/08/2015 Comp Metabolic Ovx617 CO2 28.0 mEq/L 10/08/2015 Comp Metabolic Vmy224 AN ION GAP 8 10/08/2015 Comp Metabolic Roy033 GL UCOSE 84 mg/dL 10/08/2015 Comp Metabolic Rsx220 Cr eat 1.3 mg/dL 10/08/2015 Comp Metabolic Awf683 eG FR 56 ml/min/1.73m2 10/07 Comp Metabolic Lqr972 BUN 23 mg/dL 10/08/2015 Comp Metabolic Aoe786 B/ C Ratio 17.8 Ratio 10/08/2015 Comp Metabolic Jet146 CA LCIUM 9.3 mg/dL 10/08/2015 Comp Metabolic Fre654 AL K PHOS 68 U/L 10/08/2015 Comp Metabolic Ekv216 T(SGOT) 24 U/L 10/08/2015 Comp Metabolic Uyx715 AL T(SGPT) 15 U/L 10/08/2015 Comp Metabolic Uuw711 BI LI T 0.5 mg/dL 10/08/2015 Comp Metabolic Ael346 AL BUMIN 4.0 g/dL 10/08/2015 Comp Metabolic Xna647 TP RO 5.9 g/dL 10/08/2015 Comp Metabolic Dzj525 GL OB 1.9 g/dL 10/08/2015 Comp Metabolic Zmw473 A/ G Ratio 2.1 Ratio 10/08/2015 Comp Metabolic Pfl002 Os mo 262 mOsmo 10/08/2015 Lipid Ord30 [...] Ord30 C/HDL 2.3 Ratio 05/07/2015 Comp Metabolic Ram071 NA 132 mEq/L 05/07/2015 Comp Metabolic Bnm672 K 4.4 mEq/L 05/07/2015 Comp Metabolic Rtx177 CL 97 mEq/L 05/07/2015 Comp Metabolic Qza969 CO2 30.0 mEq/L 05/07/2015 Comp Metabolic Eov882 AN ION GAP 9 05/07/2015 Comp Metabolic Qiw702 GL UCOSE 78 mg/dL 05/07/2015 Comp Metabolic Uiz226 Cr eat 1.2 mg/dL 05/07/2015 Comp Metabolic Aba902 eG FR 60 ml/min/1.73m2 05/07 Comp Metabolic Zlj726 BUN 25 mg/dL 05/07/2015 Comp Metabolic Wso920 B/ C Ratio 20.3 Ratio 05/07/2015 Comp Metabolic Qro386 CA LCIUM 9.6 mg/dL 05/07/2015 Comp Metabolic Ffx041 AL K PHOS 70 U/L 05/07/2015 Comp Metabolic Hgr992 T(SGOT) 27 U/L 05/07/2015 Comp Metabolic Ogw134 AL T(SGPT) 20 U/L 05/07/2015 Comp Metabolic Dud375 BI LI T 0.4 mg/dL 05/07/2015 Comp Metabolic Coo605 AL BUMIN 4.0 g/dL 05/07/2015 Comp Metabolic Jxh192 TP RO 5.8 g/dL 05/07/2015 Comp Metabolic Uyn024 GL OB 1.8 g/dL 05/07/2015 Comp Metabolic Nun859 A/ G Ratio 2.3 Ratio 05/07/2015 Comp Metabolic Yuk978 Os mo 268 mOsmo 05/07/2015 Cbc With [...] Tsh Ord6 hTSH II 4.07 uIU/mL 05/07/2015 Cbc With Differential Ord2 WBC 3.3 K/uL [...] Ord30 C/HDL 3.3 Ratio 12/10/2014 Comp Metabolic Lyt205 NA 134 mEq/L 12/10/2014 Comp Metabolic Rfa884 K 4.8 mEq/L 12/10/2014 Comp Metabolic Pkr938 CL 101 mEq/L 12/10/2014 Comp Metabolic Gnd099 CO2 30.0 mEq/L 12/10/2014 Comp Metabolic Kmk316 AN ION GAP 8 12/10/2014 Comp Metabolic Grh787 GL UCOSE 85 mg/dL 12/10/2014 Comp Metabolic Itu687 Cr eat 1.2 mg/dL 12/10/2014 Comp Metabolic Jtk955 eG FR 65 ml/min/1.73m2 12/10 Comp Metabolic Jrs327 BUN 25 mg/dL 12/10/2014 Comp Metabolic Okf199 B/ C Ratio 21.7 Ratio 12/10/2014 Comp Metabolic Uql815 CA LCIUM 9.5 mg/dL 12/10/2014 Comp Metabolic Jrc461 AL K PHOS 76 U/L 12/10/2014 Comp Metabolic Wus982 T(SGOT) 27 U/L 12/10/2014 Comp Metabolic Qcl915 AL T(SGPT) 18 U/L 12/10/2014 Comp Metabolic Hqf954 BI LI T 0.5 mg/dL 12/10/2014 Comp Metabolic Mnc492 AL BUMIN 4.1 g/dL 12/10/2014 Comp Metabolic Vlf558 TP RO 5.7 g/dL 12/10/2014 Comp Metabolic Vwh154 GL OB 1.6 g/dL 12/10/2014 Comp Metabolic Qbl080 A/ G Ratio 2.6 Ratio 12/10/2014 Comp Metabolic Ghm254 Os mo 272 mOsmo 12/10/2014 B12 Frb202 B12 1011.00 pg/ml 12/10/2014 CHEM 14 4356177 AST 30 U/L 02/19/2013 CHEM 14 4730911 ALT 19 IU/L 02/19/2013 CHEM 14 6152186 BUN 21 MG/DL 02/19/2013 CHEM 14 0374044 ALBUMIN 4.4 GM/DL 02/19/2013 CHEM 14 9943030 CHLORIDE 94 MMOL/L 02/19/2013 CHEM 14 7834282 BILI TOT 0.5 MG/DL 02/19/2013 CHEM 14 7069494 ALK PHOS 75 U/L 02/19/2013 CHEM 14 2280572 SODIUM 133 MMOL/L 02/19/2013 CHEM 14 8344994 CREATINI NE 1.07 MG/DL 02/19/2013 CHEM 14 1839350 CALCIUM 9.6 MG/DL 02/19/2013 CHEM 14 8162576 POTASSIUM 4.6 MMOL/L 02/19/2013 CHEM 14 1112429 PROT TOT 6.1 GM/DL 02/19/2013 CHEM 14 2387326 GLUCOSE 94 MG/DL 02/19/2013 CHEM 14 8633793 BICARB 31 MMOL/L 02/19/2013 CHEM 14 6281355 ANION GAP 8 MEQ/L 02/19/2013 GFR CALC 0630055 GFR AA >60 ML/MIN 02/19/2013 GFR CALC 6045136 GFR NON -AA >60 ML/MIN 02/19/2013 FREE T4 3359077 FREE T4 1.18 NG/DL 02/19/2013 TSH 3110623 TSH 2.094 uIU/ML 02/19/2013 CBC 6364770 WBC 4.1 10e9/L 02/19/2013 CBC 6827116 RBC 4.39 10e12/L 02/19/2013 CBC 1968006 HGB 14.1 g/dL 02/19/2013 CBC 4752018 HCT DET 41.0 % 02/19/2013 CBC 0938139 MCV 93.4 fL 02/19/2013 CBC 8716972 MCH 32.1 pg 02/19/2013 CBC 4914572 MCHC 34.4 g/dL 02/19/2013 CBC 9064250 PLT 151 10e9/L 02/19/2013 CBC 4452446 MPV 11.8 fL 02/19/2013 CBC 5476029 YOVANNY % 63.2 % 02/19/2013 CBC 8609351 LY % 22.9 % 02/19/2013 CBC 1869891 MON % 11.5 % 02/19/2013 CBC 9408349 EOS % 2.2 % 02/19/2013 CBC 7102812 BASO % 0.2 % 02/19/2013 CBC 1439493 RDW 13.8 % 02/19/2013 CBC 5039550 ABS YOVANNY 2.59 10e9/L 02/19/2013 CBC 2413549 ABS LYMPH 0.94 10e9/L 02/19/2013 CBC 1969831 ABS MONO 0.47 10e9/L 02/19/2013 CBC 9610680 ABS EOS 0.09 10e9/L 02/19/2013 CBC [id number] ABS BASO 0.01 10e9/L 02/19/2013 CBC 0026615 RDW-SD 46.0 fL 02/19/2013 UA 05814 Specific [place] 1.015 DateTime(Free Text in Aprima ) UA 29560 PH 6 DateTime(Free Text in Aprima ) UA 38327 GLUCOSE neg DateTime(Free Text in Aprima ) UA 64061 Protein neg DateTime(Free Text in Aprima ) UA 23866 Blood neg DateTime(Free Text in Aprima ) UA 13707 Bilirubin neg DateTime(Free Text in Aprima ) UA 00918 Ketones neg DateTime(Free Text in Aprima ) UA 94071 Urobilinogen neg DateTime(Free Text in Aprima ) UA 21916 Nitrite neg DateTime(Free Text in ) UA 16151 Leukocytes neg DateTime(Free Text in ) Review [...] atraumatic 02/19/2013 None Full Exam - General 1995 [...] distress 10/16/2012 None Full Exam - General 1995 Constitutional general appearance Overall: well nourished 10/16/2012 [...] sounds 08/25/2011 None Full Exam - General 1995 Musculoskeletal [...] 08/25/2011 None Full Exam - General 1995 Musculoskeletal [...] murmurs 01/15/2011 None Full Exam - General 1995 Chest/Breast breast/chest inspection Overall: normal chest shape [...] Procedure Codes Date DRAIN/INJECT JOINT/B URSA CPT-4: 66396Oiydlto 02/17/2016 IMMUNIZATION ADMIN CPT-4: 27046Tervegc 05/06/2015 PNEUMOCOCCAL VACC 13 TIFFANIE IM Formatting Model/CDA Sections, Assigned to/Celia Minaya SNOMED CT: [id number] CPT-4: 02092Wtaaxkx 05/06/2015 ADMIN INFLUENZA VIRU S VAC CPT-4: P6307Djkgfda 02/19/2015 FLU VACC 4 TIFFANIE 3 YRS PLUS IM Formatting Model/CDA Sections, Assigned to SNOMED CT: [id number] CPT-4: 73483Fspjsoj 02/19/2015 URINALYSIS NONAUTO W /O SCOPE CPT-4: 99574Jxipcns 05/23/2014 ADMIN INFLUENZA VIRU S VAC CPT-4: K6808Jxxheyj 03/26/2014 FLU VAC NO PRSV 4 VA L 3 YRS+ Assigned to/Celia Minaya CPT-4: 12249Bnnwuiw 03/26/2014 PRESCRIP TRANSMIT A ERX SY CPT-4: Q9139Ykrurbc 04/04/2013 ROUTINE VENIPUNCTURE CPT-4: 99966Gmfrkcd 02/19/2013 ADMIN INFLUENZA VIRU S VAC CPT-4: A5321Njtkxep 02/06/2013 FLULAVAL VACC, 3 YRS & >, IM CPT-4: K5524Yjgkigi 02/06/2013 [id number] EST. PATIENT, LEVEL IV CPT-4: 39610Yysjjhd 06/19/2012 PRESCRIP TRANSMIT A ERX SY CPT-4: S4669Iyafdar 06/19/2012 PRESCRIP TRANSMIT A ERX SY CPT-4: D0874Pepefhg 03/20/2012 PRESCRIP TRANSMIT A ERX SY CPT-4: Z2088Ddtoixj 06/23/2011 IMMUNIZATION ADMIN CPT-4: 73788Aepinqp 02/25/2011 ZOSTER VACC SC (No lloyd stephens, patient supplied vaccine) CPT-4: 58386IEBiuagvt 02/25/2011 ADMIN PNEUMOCOCCAL V ACCINE SNOMED CT: 79533848 CPT-4: W3867Xcfhwpg 02/16/2011 Pneumococcal Polysac charide Vaccine, 23-Valent, Ad CPT-4: 28130Wdtsrpd 02/16/2011 ADMIN INFLUENZA VIRU S VAC CPT-4: Y5257Gpljnkt 02/09/2011 FLULAVAL VACC, 3 YRS & >, IM CPT-4: W9300Mhmpynj 02/09/2011 PRESCRIP TRANSMIT A ERX SY CPT-4: X5313Ekijrgu 02/01/2011 URINALYSIS NONAUTO W /O SCOPE CPT-4: 59128Pjwmhjj 01/27/2011 Vital Signs Date Vital 08/23/2016 Blood Pressure 1: 118/68 Code: 8480-6 BMI: 20.8 Code: 12024-9 Heart Rate 1: 54 bpm Height: 5'9" SpO2: 97% Weight: 141 lbs 04/26/2016 Blood Pressure 1: 108/64 Code: 8480-6 BMI: 21.0 Code: 70621-8 Heart Rate 1: 62 bpm Height: 5'9" SpO2: 95% Weight: 142 lbs 02/17/2016 Blood Pressure 1: 138/80 Code: 8480-6 BMI: 20.2 Code: 29327-3 Heart Rate 1: 76 bpm Height: 5'9" SpO2: 97% Weight: 137 lbs 02/09/2016 Blood Pressure 1: 140/76 Code: 8480-6 BMI: 20.2 Code: 45349-1 Heart Rate 1: 72 bpm Height: 5'9" SpO2: 96% Weight: 137 lbs 02/03/2016 Blood Pressure 1: 136/80 Code: 8480-6 BMI: 20.7 Code: 36392-9 Heart Rate 1: 86 bpm Height: 5'9" SpO2: 96% Weight: 140 lbs 01/26/2016 Blood Pressure 1: 144/78 Code: 8480-6 BMI: 20.7 Code: 61372-9 Heart Rate 1: 73 bpm Height: 5'9" SpO2: 97% Temperature: 37.0 (C ) / 98.6 (F) Weight: 140 lbs 01/21/2016 Blood Pressure 1: 116/62 Code: 8480-6 BMI: 20.4 Code: 04448-8 Heart Rate 1: 66 bpm Height: 5'9" SpO2: 97% Weight: 138 lbs 12/29/2015 Blood Pressure 1: 130/74 Code: 8480-6 BMI: 20.4 Code: 34362-8 Heart Rate 1: 51 bpm Height: 5'9" SpO2: 98% Weight: 138 lbs 09/02/2015 Blood Pressure 1: 126/60 Code: 8480-6 BMI: 22.3 Code: 28992-9 Heart Rate 1: 55 bpm Height: 5'9" SpO2: 96% Weight: 151 lbs 05/06/2015 Blood Pressure 1: 132/72 Code: 8480-6 BMI: 21.0 Code: 68035-3 Heart Rate 1: 63 bpm Height: 5'9" SpO2: 97% Weight: 142 lbs 03/05/2015 Blood Pressure 1: 130/68 Code: 8480-6 BMI: 21.0 Code: 32152-2 Heart Rate 1: 61 bpm Height: 5'9" SpO2: 96% Weight: 142 lbs 12/04/2014 Blood Pressure 1: 122/64 Code: 8480-6 BMI: 21.3 Code: 68223-7 Heart Rate 1: 72 bpm Height: 5'9" Weight: 144 lbs 09/24/2014 Blood Pressure 1: 142/80 Code: 8480-6 BMI: 20.4 Code: 81230-5 Heart Rate 1: 80 bpm Height: 5'9" Weight: 138 lbs 09/09/2014 Blood Pressure 1: 122/74 Code: 8480-6 BMI: 20.5 Code: 17314-7 Heart Rate 1: 64 bpm Height: 5'9" Weight: 139 lbs 07/26/2014 Blood Pressure 1: 136/82 Code: 8480-6 BMI: 20.4 Code: 09432-0 Heart Rate 1: 87 bpm Height: 5'9" SpO2: 92% Weight: 138 lbs 07/10/2014 Blood Pressure 1: 130/74 Code: 8480-6 BMI: 21.1 Code: 28192-6 Heart Rate 1: 64 bpm Height: 5'9" Weight: 143 lbs 06/06/2014 Blood Pressure 1: 142/88 Code: 8480-6 BMI: 20.4 Code: 30612-4 Heart Rate 1: 68 bpm Height: 5'9" Weight: 138 lbs 05/29/2014 Blood Pressure 1: 108/72 Code: 8480-6 BMI: 20.5 Code: 43795-6 Heart Rate 1: 60 bpm Height: 5'9" Weight: 139 lbs 05/20/2014 Blood Pressure 1: 140/72 Code: 8480-6 BMI: 21.6 Code: 49884-6 Heart Rate 1: 60 bpm Height: 5'9" SpO2: 98% Temperature: 36.2 (C ) / 97.2 (F) Weight: 146 lbs 03/25/2014 Blood Pressure 1: 128/60 Code: 8480-6 BMI: 21.4 Code: 84117-9 Heart Rate 1: 62 bpm Height: 5'9" Weight: 145 lbs 02/08/2014 Blood Pressure 1: 136/82 Code: 8480-6 BMI: 21.3 Code: 40898-7 Heart Rate 1: 68 bpm Height: 5'9" Weight: 144 lbs 12/24/2013 Blood Pressure 1: 122/76 Code: 8480-6 BMI: 21.6 Code: 43611-6 Heart Rate 1: 58 bpm Height: 5'9" Weight: 146 lbs 11/20/2013 Blood Pressure 1: 112/62 Code: 8480-6 BMI: 20.7 Code: 54408-6 Heart Rate 1: 56 bpm Height: 5'9" Weight: 140 lbs 10/30/2013 Blood Pressure 1: 130/68 Code: 8480-6 BMI: 20.1 Code: 66946-0 Heart Rate 1: 68 bpm Height: 5'9" SpO2: 96% Weight: 136 lbs 10/08/2013 Blood Pressure 1: 128/72 Code: 8480-6 BMI: 20.8 Code: 06190-0 Heart Rate 1: 60 bpm Height: 5'9" Temperature: 36.6 (C ) / 97.8 (F) Weight: 141 lbs 06/18/2013 Blood Pressure 1: 124/78 Code: 8480-6 BMI: 20.8 Code: 73326-5 Heart Rate 1: 64 bpm Height: 5'9" Weight: 141 lbs 04/04/2013 Blood Pressure 1: 138/60 Code: 8480-6 BMI: 20.8 Code: 51749-9 Heart Rate 1: 56 bpm Height: 5'9" Weight: 141 lbs 02/19/2013 Blood Pressure 1: 152/74 Code: 8480-6 BMI: 21.0 Code: 06113-0 Heart Rate 1: 60 bpm Height: 5'9" Weight: 142 lbs 10/16/2012 Blood Pressure 1: 122/70 Code: 8480-6 BMI: 20.8 Code: 98353-4 Heart Rate 1: 64 bpm Height: 5'9" Weight: 141 lbs 06/19/2012 Blood Pressure 1: 120/72 Code: 8480-6 BMI: 21.1 Code: 45665-7 Heart Rate 1: 60 bpm Height: 5'9" Weight: 143 lbs 03/20/2012 Blood Pressure 1: 114/76 Code: 8480-6 Heart Rate 1: 60 bpm Respiratory Rate: 16 bpm Weight: 143 lbs 01/24/2012 Blood Pressure 1: 134/70 Code: 8480-6 Heart Rate 1: 64 bpm Weight: 143 lbs 12/20/2011 Blood Pressure 1: 98/72 Code: 8480-6 BMI: 21.1 Code: 76107-4 Heart Rate 1: 60 bpm Height: 5'9" Respiratory Rate: 16 bpm Weight: 143 lbs 12/09/2011 Blood Pressure 1: 110/60 Code: 8480-6 Heart Rate 1: 66 bpm SpO2: 98% Weight: 141 lbs 08/25/2011 Blood Pressure 1: 112/70 Code: 8480-6 BMI: 20.8 Code: 70179-9 Heart Rate 1: 54 bpm Height: 5'9" Respiratory Rate: 16 bpm Weight: 141 lbs 06/23/2011 Blood Pressure 1: 126/64 Code: 8480-6 Heart Rate 1: 60 bpm Respiratory Rate: 16 bpm Weight: 142 lbs 04/19/2011 Blood Pressure 1: 124/64 Code: 8480-6 BMI: 21.1 Code: 81311-2 Heart Rate 1: 64 bpm Height: 5'9" Respiratory Rate: 16 bpm Weight: 143 lbs 03/23/2011 Blood Pressure 1: 137/71 Code: 8480-6 Heart Rate 1: 57 bpm 03/08/2011 Blood Pressure 1: 154/70 Code: 8480-6 BMI: 20.8 Code: 02700-4 Heart Rate 1: 60 bpm Height: 5'9" Respiratory Rate: 16 bpm Weight: 141 lbs 03/01/2011 Blood Pressure 1: 178/80 Code: 8480-6 Blood Pressure 2: 168/70 Code: 8480-6 BMI: 24.1 Code: 43180-3 Heart Rate 1: 60 bpm Height: 5'9" Respiratory Rate: 16 bpm Weight: 163 lbs 02/01/2011 Blood Pressure 1: 162/84 Code: 8480-6 Heart Rate 1: 60 bpm Respiratory Rate: 16 bpm Weight: 144 lbs 01/27/2011 Blood Pressure 1: 138/54 Code: 8480-6 BMI: 21.1 Code: 99409-1 Heart Rate 1: 68 bpm Height: 5'9" Respiratory Rate: 16 bpm Weight: 143 lbs 01/26/2011 Blood Pressure 1: 148/86 Code: 8480-6 BMI: 21.3 Code: 78694-5 Heart Rate 1: 74 bpm Height: 5'9" Weight: 144 lbs 01/15/2011 Blood Pressure 1: 136/76 Code: 8480-6 BMI: 20.5 Code: 25327-7 Heart Rate 1: 70 bpm Height: 5'10" Weight: 141 lbs 01/06/2011 Blood Pressure 1: 148/72 Code: 8480-6 BMI: 20.2 Code: 15994-9 Heart Rate 1: 72 bpm Height: 5'10" [...] discuss li sinopril and dosage and dr slaena andrade hypertension Onset and Resolution ongoing 01/24/2012 [...] Encounters Encounter Performer Loca tion Codes Date ([id number]) 86782 EST. P ATIENT, LEVEL IV Diagnosis: Essential (primary) hypertension[ICD10: I10] Diagnosis: Mild cognitive impairment, so stated[ICD10: G31.84] Ale Carlos MD, [facility] CPT-4: 85011 08/23/2016 ([id number]) 55779 EST. P ATIENT, LEVEL III Diagnosis: Essential (primary) hypertension[ICD10: I10] Ale Carlos MD, [facility] CPT-4: 21589 04/26/2016 ([id number]) Miscellaneou s no charge Diagnosis: Olecranon bursitis, right elbow[ICD10: M70.21] Nelly Carlos MD, [facility] CPT-4: 52574 02/09/2016 ([id number]) 99196 EST. P ATIENT, LEVEL III Diagnosis: Olecranon bursitis, right elbow[ICD10: M70.21] Nelly Carlos MD, [facility] CPT-4: 74057 02/03/2016 ([id number]) 04674 EST. P ATIENT, LEVEL III Diagnosis: Generalized abdominal tenderness[ICD10: R10.817] Ale Carlos MD, [facility] CPT-4: 77931 01/26/2016 60947 EST. PATIENT, LEVEL IV Diagnosis: Other allergic rhinitis[ICD10: J30.89] Ruchi Carlos MD, [facility] CPT-4: 57830 01/21/2016 ([id number]) 89253 EST. P ATIENT, LEVEL IV Diagnosis: Essential (primary) hypertension[ICD10: I10] Diagnosis: Hypo-osmolality and hyponatremia[ICD10: E87.1] Ale Carlos MD, [facility] CPT-4: 01651 12/29/2015 ([id number]) 80661 EST. P ATIENT, LEVEL IV Diagnosis: Essential (primary) hypertension[ICD10: I10] Diagnosis: Mild cognitive impairment, so stated[ICD10: G31.84] Ale Carlos MD, [facility] CPT-4: 42962 09/02/2015 ([id number]) 44474 EST. P ATIENT, LEVEL IV Diagnosis: Mixed hyperlipidemia[ICD10: E78.2] Diagnosis: Generalized anxiety disorder[ICD10: F41.1] Diagnosis: Mild cognitive impairment, so stated[ICD10: G31.84] Diagnosis: Essential (primary) hypertension[ICD10: I10] Diagnosis: Encounter for immunization[ICD10: Z23] Ale Carlos MD, [facility] CPT-4: 98036 05/06/2015 ([id number]) 93486 EST. 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 P ATIENT, LEVEL IV Diagnosis: ESSENTIAL HYPERTENSION[ICD9: 401.9] Diagnosis: GENERALIZED ANXIETY DISEASE[ICD9: 300.02] Diagnosis: MILD COGNITIVE IMPAIREMT[ICD9: 331.83] Diagnosis: IRRITABLE COLON[ICD9: 564.1] Ale Carlos MD, [facility] CPT-4: 69946 12/04/2014 ([id number]) 30715 EST. P ATIENT, LEVEL IV Diagnosis: Abdominal pain[ICD9: 789.00] Diagnosis: GENERALIZED ANXIETY DISEASE[ICD9: 300.02] Diagnosis: Hyponatremia[ICD9: 276.1] Diagnosis: ESSENTIAL HYPERTENSION[ICD9: 401.9] Nelly Carlos MD, [facility] CPT-4: 41853 09/24/2014 ([id number]) 37532 EST. P ATIENT, LEVEL IV Diagnosis: ESSENTIAL HYPERTENSION[ICD9: 401.9] Diagnosis: Osteoarthritis[ICD9: 715.90] Diagnosis: Mild cognitive impairment with memory loss[ICD9: 331.83] Ale Carlos MD, [facility] CPT-4: 43846 09/09/2014 ([id number]) 40889 EST. P ATIENT, LEVEL III Diagnosis: GENERALIZED ANXIETY DISEASE[ICD9: 300.02] Diagnosis: Depression[ICD9: 311] Ale Carlos MD, [facility] CPT-4: 67187 07/26/2014 ([id number]) 90621 EST. P ATIENT, LEVEL IV Diagnosis: ESSENTIAL HYPERTENSION[ICD9: 401.9] Diagnosis: GENERALIZED ANXIETY DISEASE[ICD9: 300.02] Diagnosis: MILD COGNITIVE IMPAIREMT[ICD9: 331.83] Ale Carlos MD, [facility] CPT-4: 84841 07/10/2014 ([id number]) 45350 EST. P ATIENT, LEVEL IV Diagnosis: Dizziness[ICD9: 780.4] Diagnosis: GENERALIZED ANXIETY DISEASE[ICD9: 300.02] Diagnosis: Depression[ICD9: 311] Diagnosis: ESSENTIAL HYPERTENSION[ICD9: 401.9] Diagnosis: Urinary frequency[ICD9: 788.41] Ale Carlos MD, [facility] CPT-4: 69666 06/06/2014 ([id number]) 82617 EST. P ATIENT, LEVEL IV Diagnosis: ESSENTIAL HYPERTENSION[ICD9: 401.9] Diagnosis: GENERALIZED ANXIETY DISEASE[ICD9: 300.02] Diagnosis: Mild cognitive impairment with memory loss[ICD9: 331.83] Ale Carlos MD, [facility] CPT-4: 84607 05/29/2014 ([id number]) 67330 EST. P ATIENT, LEVEL IV Diagnosis: Pneumonia[ICD9: 486] Diagnosis: COUGH[ICD9: 786.2] Diagnosis: Hyponatremia[ICD9: 276.1] Diagnosis: ALLERGIC RHINITIS[ICD9: 477.9] Ale Carlos MD, [facility] CPT-4: 00567 05/20/2014 ([id number]) 76458 EST. P ATIENT, LEVEL III Diagnosis: ESSENTIAL HYPERTENSION[ICD9: 401.9] Diagnosis: Cough[ICD9: 786.2] Ale Carlos MD, [facility] CPT-4: 83835 03/25/2014 ([id number]) 29298 EST. P ATIENT, LEVEL III Diagnosis: COUGH[ICD9: 786.2] Diagnosis: ALLERGIC RHINITIS[ICD9: 477.9] Nelly Carlos MD, [facility] CPT- 4: 85265 02/08/2014 ([id number]) 47063 EST. P ATIENT, LEVEL III Diagnosis: ESSENTIAL HYPERTENSION[ICD9: 401.9] Diagnosis: Nasal congestion[ICD9: 478.19] Ale Carlos MD, [facility] CPT-4: 91518 12/24/2013 ([id number]) 55617 EST. P ATIENT, LEVEL III Diagnosis: Seasonal allergies[ICD9: 477.9] Diagnosis: Nasal congestion[ICD9: 478.19] Diagnosis: ABNORMAL LOSS OF WEIGHT[ICD9: 783.21] Ale Carlos MD, [facility] CPT-4: 62919 11/20/2013 ([id number]) 29022 EST. P ATIENT, LEVEL III Diagnosis: ABNORMAL LOSS OF WEIGHT[ICD9: 783.21] Diagnosis: MALAISE AND FATIGUE[ICD9: 780.79] Diagnosis: Hyponatremia[ICD9: 276.1] Nelly Carlos MD, [facility] CPT- 4: 86084 10/30/2013 ([id number]) 00055 EST. P ATIENT, LEVEL III Diagnosis: Acute maxillary sinusitis[ICD9: 461.0] Diagnosis: COUGH[ICD9: 786.2] Ale Carlos MD, [facility] CPT-4: 98184 10/08/2013 ([id number]) 38982 EST. P ATIENT, LEVEL IV Diagnosis: ESSENTIAL HYPERTENSION[SNOMED: 01125601] Diagnosis: GENERALIZED ANXIETY DISEASE[ICD9: 300.02] Diagnosis: OSTEOARTH NOS-UNSPEC[ICD9: 715.90] Diagnosis: Coronary artery disease[ICD9: 414.00] Ale Carlos MD, [facility] CPT-4: 39836 06/18/2013 ([id number]) 75533 EST. P ATIENT, LEVEL III Diagnosis: ESSENTIAL HYPERTENSION[SNOMED: 29685642] Ale Carlos MD, [facility] CPT-4: 40791 04/04/2013 ([id number]) 15874 EST. P ATIENT, LEVEL IV Diagnosis: ESSENTIAL HYPERTENSION[SNOMED: 76920123] Diagnosis: Leukopenia[ICD9: 288.50] Diagnosis: Encounter for long-term (current) use of other medications[ICD9: V58.69] Ale Carlos MD, [facility] CPT-4: 73997 02/19/2013 ([id number]) 56850 EST. P ATIENT, LEVEL IV Diagnosis: ESSENTIAL HYPERTENSION[SNOMED: 03730569] Diagnosis: MILD COGNITIVE IMPAIREMT[ICD9: 331.83] Ale Carlos MD, [facility] CPT-4: 64667 10/16/2012 ([id number]) 38500 EST. P ATIENT, LEVEL IV Diagnosis: ESSENTIAL HYPERTENSION[SNOMED: 95616774] Diagnosis: GENERALIZED ANXIETY DISEASE[ICD9: 300.02] Diagnosis: IRRITABLE COLON[ICD9: 564.1] Ale Carlos MD, [facility] CPT-4: 42148 03/20/2012 26588 EST. PATIENT, LEVEL IV Diagnosis: ESSENTIAL HYPERTENSION[SNOMED: 91353284] Diagnosis: Osteoarthritis[ICD9: 715.90] Diagnosis: HYPERLIPIDEMIA[ICD9: 272.4] Ale Carlos MD, [facility] CPT-4: 08132 01/24/2012 77664 EST. PATIENT, LEVEL IV Diagnosis: ESSENTIAL HYPERTENSION[SNOMED: 76895496] Diagnosis: BPH W URINARY OBS/LUTS[ICD9: 600.01] Ale Carlos MD, [facility] CPT-4: 37846 12/20/2011 ([id number]) 24019 EST. P ATIENT, LEVEL III Diagnosis: Lump in the groin[ICD9: 789.30] Ale Carlos MD, [facility] CPT-4: 98605 12/09/2011 ([id number]) 05559 EST. P ATIENT, LEVEL IV Diagnosis: ESSENTIAL HYPERTENSION[SNOMED: 45030330] Diagnosis: Mild cognitive impairment[ICD9: 331.83] Ale Carlos MD, [facility] CPT-4: 89943 08/25/2011 ([id number]) 75233 EST. P ATIENT, LEVEL IV Diagnosis: ESSENTIAL HYPERTENSION[SNOMED: 93988036] Diagnosis: GENERALIZED ANXIETY DISEASE[ICD9: 300.02] Diagnosis: MILD COGNITIVE IMPAIREMT[ICD9: 331.83] Diagnosis: IRRITABLE COLON[ICD9: 564.1] Ale Carlos MD, [facility] CPT-4: 92046 06/23/2011 ([id number]) 36856 EST. 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 PATIENT, LEVEL I Diagnosis: ESSENTIAL HYPERTENSION[SNOMED: 68505172] Ale Carlos MD, [facility] CPT-4: 67752 03/23/2011 20993 EST. PATIENT, LEVEL III Diagnosis: ESSENTIAL HYPERTENSION[SNOMED: 45290170] Diagnosis: Laceration of finger, index[ICD9: 883.0] Ale Carlos MD, [facility] CPT-4: 98623 03/08/2011 24120 EST. PATIENT, LEVEL III Diagnosis: ESSENTIAL HYPERTENSION[SNOMED: 26506550] Diagnosis: Irritable bowel syndrome (IBS)[ICD9: 564.1] Ale Carlos MD, [facility] CPT-4: 46645 03/01/2011 26372 EST. PATIENT, LEVEL IV Diagnosis: Mild cognitive impairment with memory loss[ICD9: 331.83] Diagnosis: GENERALIZED ANXIETY DISEASE[ICD9: 300.02] Diagnosis: Bruising[ICD9: 924.9] Diagnosis: HYDROCELE[ICD9: 603.9] Ale Carlos MD, [facility] CPT-4: 24388 02/01/2011 33233 EST. PATIENT, LEVEL III Diagnosis: Testicular pain[ICD9: 608.9] Diagnosis: GENERALIZED ANXIETY DISEASE[ICD9: 300.02] Nelly Carlos MD, [facility] CPT-4: 25511 01/27/2011 34805 EST. PATIENT, LEVEL III Diagnosis: Arm bruise[ICD9: 923.9] Nelly Carlos MD, [facility] CPT-4: 62680 01/26/2011 OFFICE VISIT, NEW - LEVEL 4 Diagnosis: DIARRHEA[ICD9: 787.91] Diagnosis: Elevated liver function tests[ICD9: 790.6] Diagnosis: Abdominal discomfort[ICD9: 789.00] [facility] CPT- 4: 32266 01/06/2011 Plan of Care Planned Activity Notes [...] aricept and namenda.labs [facility] be done [place] [facility] 08/23/2016 [facility]ment[phone] [facility] ([facility] Complex 08/23/2016 Patient Education: Patient [...] home. 04/26/2016 Appointment: [phone] [facility] [place] ([facility] min) Complex 04/26/2016 Patient Education: Patient Medication Summary Completed 04/26/2016 Visit Plan: Joint effusion - recommended drainage and referral to orthopedic surgeon for surgical debridement of bursa 02/17/2016 Appointment: [phone] [facility] [place] ([facility] [place]) Complex 02/17/2016 Patient Education: Patient Medication Summary Completed 02/17/2016 Visit Plan: Bursitis-right elbow-drained today in the office-increase anti inflammatories for the next 5 days as directed-call if symptoms do not resolve, swelling returns or new symptoms develop-patient verbalized understanding of plan. 02/09/2016 [facility]ment[phone] [phone] [place] (30 min) Complex 02/09/2016 Patient Education: Patient Medication Summary Completed 02/09/2016 Patient Education: Patient Medication Summary Completed 02/05/2016 Care Plan: Metabolic Pending 02/05/2016 Visit Plan: Bursitis-right elbow-drained today in the office-increase anti inflammatories for the next 5 days as directed-call if symptoms do not resolve, swelling returns or new symptoms develop-patient verbalized understanding of plan. 02/03/2016 Appointment: Nelly Keen WPtel: [phone] [phone] (30 min) Complex 02/03/2016 Patient Education: Patient Medication Summary Completed 02/03/2016 Patient Education: Patient Medication Summary Completed 01/30/2016 Care Plan: Metabolic Due on , Pending 01/30/2016 Visit Plan: Abdominal pain - nausea - Pt to have IV fluids at hospital 2015 Appointment: Ale Carlos WPtel: [phone] [facility] (30 min) Complex 01/26/2016 Patient Education: [...] allergy spray. 2015 Appointment: Nelly Keen WPtel: [phone] [phone] (30 min) Complex 01/21/2016 Patient Education: Patient [...] of treatment. 09/02/2015 Appointment: Ale Carlos WPtel: [phone] [facility] (15 min) Moderate 09/02/2015 Patient Education: Patient [...] injection today 05/06/2015 [facility]ment: [phone] [facility] ([facility] min) Moderate 05/06/2015 Patient Education: Patient Medication Summary Completed 05/06/2015 Patient Education: Hypertension Completed 05/06/2015 Care Plan: COMPLETE CBC AUTOMATED LOINC : 23628-5 Ordered 05/06/2015 Visit Plan: Hypertension - well [...] medications. 03/05/2015 Appointment: Ale Carlos WPtel: [phone] [facility] (30 min) Complex 03/05/2015 Patient Education: [...] -has improved. 12/04/2014 Appointment: [facility] [phone] [facility] Follow up 12/04/2014 Patient Education: Patient [...] ABD & PELV 1/> REGNS LOINC : 04573-8 Ordered 09/24/2014 Visit Plan: Hypertension - well [...] THAT HE SHOULD NOT BE DRIVING TO [facility] 07/26/2014 Appointment: Sick 07/26/2014 Appointment: Sick 07/26/2014 [...] list. 07/10/2014 Appointment: [facility] [phone] [facility] Follow up 07/10/2014 Patient Education: Patient Medication Summary Completed 07/10/2014 Patient Education: Hypertension Completed 07/10/2014 Appointment: Ale Carlos WPtel: [phone] [facility] Follow up 06/20/2014 Appointment: Ale Carlos WPtel: [address] [place] [address] Follow up 06/10/2014 Visit Plan: Anxiety and [...] change in blood pressure readings at home.Urinary jeeyjaqer-RTP-qynhap flomax to bedtime Dizziness-stop hydrocodone and ativan [...] 3 WEEKS 05/29/2014 Appointment: Ale Carlos WPtel: [address] [place], [place] [phone] Sick 05/29/2014 Patient Education: Patient Medication Summary Completed 05/29/2014 Patient Education: Hypertension Completed 05/29/2014 Appointment: Ale Carlos WPtel: [address] [place], [place] [phone] Lab Draw 05/23/2014 Patient Education: Patient Medication Summary Completed 05/23/2014 Visit Plan: Pneumonia - Pt has been diag nosed with pneumonia by physical exam. A chest xray has been ordered as have antibiotics. The pt is aware of the diagnosis and the need for acute treatment of this illness.Yocosjcjs-cikqp-qgeogix flonase nasal spray Hyponatremia-increase gatorade as directed 05/20/2014 Visit Plan: Pneumonia - Pt has been diag nosed with pneumonia by physical exam. A chest xray has been ordered as have antibiotics. The pt is aware of the diagnosis and the need for acute treatment of this illness.Obweayvmf-qvnmb-hlwaasv flonase nasal spray Hyponatremia-increase gatorade as directedADDENDUM: RECOMMEND PATIENT START ON ALBUTEROL NEBULIZER TREATMENTS EVERY 4 HOURS NEEDED FOR SHORTNESS OF BREATH/WHEEZING. DX SECONDARY PNEUMONIA FROM INFLUENZA, COUGH 05/20/2014 Patient Education: Patient Medication Summary Completed 05/20/2014 Appointment: Ale Carlos WPtel: [facility] Injection 03/26/2014 Patient Education: Patient Medication [...] Carlos [facility]Ptel[facility] Follow up 03/25/2014 Patient Education: Patient Medication Summary Completed 03/25/2014 Patient Education: Hypertension Completed 03/25/2014 Visit Plan: Euzli-qghgcunef-plnuzkp joel ngeal reflux-RX for protonix (patient is [...] home. 12/24/2013 Appointment: [facility] [phone] [facility] Follow up 12/24/2013 Patient Education: Patient Medication [...] Carlos WPtel: [facility] Follow up 11/20/2013 Patient Education: Patient Medication Summary Completed 11/20/2013 Appointment: Ale Carlos WPtel: [address] [place], [place] [phone] Follow up 11/06/2013 Visit Plan: Weight loss-increase portion s-add snacks in the morning and afternoon-follow up in 3 weeks for weight checkLow sodium-check labs-restart gatorade Wnbxaew-zmemdq-rxoay labs and UA 10/30/2013 Patient Education: Patient Medication Summary Completed 10/30/2013 Appointment: Ale Carlos WPtel: [address] [place], [place] [phone] Follow up 10/16/2013 Visit Plan: Sinusitis - [...] [place]. 06/18/2013 Appointment: Ale Carlos WPtel: [phone] [facility] Follow up 06/18/2013 Patient Education: Patient [...] acute concerns. 04/04/2013 Appointment: Ale Carlos WPtel: [facility] Follow up 04/04/2013 Patient Education: Patient [...] report. 02/19/2013 Appointment: [facility] [phone] [facility] [place] Follow up 02/19/2013 Patient Education: Patient Medication [...] loss. 10/16/2012 Appointment: Ale Carlos WPtel: [phone] [facility] Follow up 10/16/2012 Patient Education: Patient [...] return. 06/19/2012 Appointment: Ale Carlos WPtel: [phone] [facility] Follow up 06/19/2012 Patient Education: Patient [...] Carlos WPtel: [facility] Follow up 03/20/2012 Patient Education: Patient Medication Summary Completed 03/20/2012 Patient Education: High Blood Pressure: Essential Hypertension Completed 03/20/2012 Appointment: Ale Carlos WPtel: [phone] [facility] [place] Follow up 02/22/2012 Visit Plan: Hypertension - [...] needed. 01/24/2012 Appointment: Ale Carlos WPtel: [phone] [facility] Follow up 01/24/2012 Patient Education: Patient [...] have the biopsy until okayed by his at risk paraprofessional.. I anticipate it will be at least 4-6 months before he can be off of the plavix and aspirin for additonal procedures unless it is of extreme urgency. 12/20/2011 Appointment: Ale Carlos WPtel: [phone] [facility] [facility]2011 Patient Education: Patient Medication Summary Completed 12/20/2011 Patient Education: High Blood Pressure: Essential Hypertension Completed 12/20/2011 Appointment: Ale Carlos [facility]el[facility] Other 12/13/2011 Visit Plan: Pain in groin post heart cat h with increased discomfort and increased size - will order an ultrasound for today. 12/09/2011 Appointment: [facility] [facility] 12/09/2011 Patient Education: Patient Medication [...] Carlos WPtel: [facility] Other 08/25/2011 Patient Education: Patient Medication [...] low doses. 2011 Appointment: Ale Carlos WPtel: [facility] Other 06/23/2011 Patient Education: Patient Medication Summary Completed 06/23/2011 Patient Education: High Blood Pressure: Essential Hypertension Completed 06/23/2011 Appointment: Ale Carlos WPtel: [address] [place], [place] [id number] Other 04/26/2011 Visit Plan: Hypertension - well [...] avoid nuts, seeds, etc. 04/19/2011 Appointment: Ale Carlostel: [address] [facility] Other 04/19/2011 Patient Education: Patient Medication Summary Completed 04/19/2011 Patient Education: High Blood Pressure: Essential Hypertension Completed 04/19/2011 Patient Education: Diverticulosis Diet Completed 04/19/2011 Appointment: Osmani Nelly WPtel: [phone] [phone] Other 03/23/2011 Patient Education: Patient Medication Summary Completed 03/23/2011 Patient Education: High Blood Pressure: Essential Hypertension Completed 03/23/2011 Visit Plan: Record blood pressure and he art rate at home and drop the readings by the office in two weeks. No change in medications today. Laceration - removed suture today - pt to call if any complications arise. 03/08/2011 Appointment: Ale Carlos WPtel: [phone] [facility] Other 03/08/2011 Patient Education: Patient Medication [...] day. 2010 Appointment: Ale Carlos WPtel: [phone] [facility] Other 03/01/2011 Patient Education: Patient Medication Summary Completed 03/01/2011 Patient Education: High Blood Pressure: Essential Hypertension Completed 03/01/2011 Appointment: [phone] [place] Injection 02/25/2011 Patient Education: Patient Medication Summary Completed 02/25/2011 Appointment: Ale Carlos WPtel: [facility] [place] Injection 02/16/2011 Patient Education: Patient Medication Summary Completed 02/16/2011 Appointment: Ale Carlos WPtel: [facility] [place] Injection 02/09/2011 Patient Education: Patient Medication Summary Completed 02/09/2011 Appointment: Ale Carlos WPtel: [facility] [facility] 02/02/2011 Visit Plan: Hydrocele and [...] with his son - Kenji Dash in [place].Upon our conversation [id number], Kenji vocalized concerns for his Dad's memory. He stated that he has noticed his father not being as quick in his cognitive functioning, he has noticed some concerns with driving as well. He states that he will discuss these concerns with his parents and other siblings. 02/01/2011 Appointment: Ale Carlos WPtel: [facility] Other 02/01/2011 Patient Education: Patient Medication [...] Carlos WPtel: [facility] [place] New Patient 01/27/2011 Patient Education: Patient Medication Summary Completed 01/27/2011 Visit Plan: Bruising/hematoma left arm-d iscussed natural and expected course of this diagnosis and to alert me if symptoms do not follow expected course or if any worse, Continue with ice/heat as needed for discomfort. Call for any concerns. 01/26/2011 Appointment: Nelly Keen WPtel: [facility] [address] Other 01/26/2011 Patient Education: Patient Medication [...] Keen WPtel: [facility] [place] [address] Other 01/15/2011 Patient Education: Patient Medication Summary [...] Carlos WPtel: [facility] [facility] 01/06/2011 Patient Education: Patient Medication Summary Completed 01/06/2011 Instructions Comment . Bruising/hematoma left arm-discussed natural and expected course of this diagnosis and to alert me if symptoms do not follow expected course or if any worse, Continue with ice/heat as needed for discomfort. Call for any concerns. CHECK LABS-CBC, CMP, UA WITH C&S IF INDICATED . Weight loss-increase portions-add snac ks in the morning and afternoon-follow up in 3 weeks for weight check Low sodium-check labs-restart gatorade Frphflg-fuyuev-rgcgz labs and UA . Pain in groin post heart cath with increased discomfort and increased size - will order an ultrasound for today. . Abdominal pain - n ausea - [...] cbc prevnar 13 injection today . Hypertension and C oronary artery disease- [...] have the biopsy until okayed by his at risk paraprofessional.. I anticipate it will be at least 4-6 months before he can be off of the plavix and aspirin for additonal procedures unless it is of extreme urgency. Nasal spray- use twi ce daily, one [...] his anxiety and memory loss. . Hypertension - wel l controlled at [...] 8 hours as needed. INCREASE GATORADE TO TWICE DAILY . Abdominal [...] and namenda. labs to be done [place] [facility] . Nocturia-defer daina atment to Dr. Quintero. Continue with proscar and flomax. Return to follow up with Dr. Quintero on Tuesday as scheduled. Call if unable to void, fever, other concerns, etc. Abdominal bloating, gas-recommend lactobacillus 1 po twice daily while on antibiotics. Diarrhea-resolved per patient report. Finish antibiotics for full course. PT ADMITTED TO HOSPITAL IN THE EVENING OF 01/15/11 Blood pressure check today in the office-improving. [...] situational exposure. No change in current medications. decrease Protonix (p antoprazole) to ONE pill [...] current plan of treatment. . Hypertension - unc ontrolled - the [...] in the nasal steroid allergy spray. . Qjuvk-agpcuuost-lu spect laryngeal reflux-RX for protonix (patient is on plavix) and follow up in 1 month. Call if symptoms do not improve or if any worse Allergies-improved on flonase-continue as directed and call if symptoms return. ESCITALOPRAM (LEXAPR O) 5MG DAILY AT BEDTIME-THIS [...] in blood pressure readings at home. Urinary rkergsnfh-NQM-rkasjj flomax to bedtime Dizziness-stop hydrocodone and ativan . Hypertension - wel l controlled - [...] continue with treatment per Dr. Merlos. . Joint effusion - r ecommended drainage and referral to orthopedic surgeon for surgical debridement of bursa INCREASE YOUR MELOXI CAM (MOBIC) TO 1/2 [...] need for acute treatment of this illness. Dtjxhlwwu-miwgk-pjrbzmn flonase nasal spray Hyponatremia-increase gatorade as directed . Pneumonia - Pt has been diagnosed with pneumonia by physical exam. A chest xray has been ordered as have antibiotics. The pt is aware of the diagnosis and the need for acute treatment of this illness. Comkehoiw-gqmrn-mmsopsf flonase nasal spray Hyponatremia-increase gatorade as directed ADDENDUM: RECOMMEND PATIENT START ON ALBUTEROL NEBULIZER TREATMENTS EVERY 4 HOURS NEEDED FOR SHORTNESS OF BREATH/WHEEZING. DX SECONDARY PNEUMONIA FROM INFLUENZA, COUGH . Abdominal symptoms with elevated liver enzymes- [...] - HOLD THE SIMVASTATIN X 3 WEEKS Appointment in [address] [place] [address] Carlos. Recommend Lactobacillus 1 orally [...] with his son - Kenji Dash in [place]. Upon our conversation owas-ueu-zqnec, Kenji vocalized concerns for his Dad's memory. He stated that he has noticed his father not being as quick in his cognitive functioning, he has noticed some concerns with driving as well. He states that he will discuss these concerns with his parents and other siblings. stop losartan - [facility] blood pressure and heart rate [...] to be making Dr. Dash nauseated. . Hypertension - wel l controlled - [...] THAT HE SHOULD NOT BE DRIVING TO ALLRED Pt is to try 1/2 pil l [...] improving. Anxiety -has improved. . Hypertension - wel l controlled - [...]
--- OUTSIDE RECORDS SUMMARY | 2019-07-16 07:40 | XMS REPORT | CCD ---
Author Author Kenneth Carlos Organization Ale Carlos MD, [facility] Address [address] [place] [address] Phone Care Team Providers Care Dealer Support Technician Name Role Phone Ale Carlos PP Unavailable CCM Unavailable Summary Purpose Interface Exchange Insurance Providers Payer name Policy type / Coverage type Covered libertarian ID Effective Begin Date Effective End Date WPS Medicare Part B Medicare Part B [id number] Unknown Unknown [facility] icare Part B [id number] Unknown Unk nown Family history Runs in the family Diagnosis Age At Onset No Family Disease Entered N/A Mother Diagnosis Age At Onset No Family Disease Entered N/A Father Diagnosis Age At Onset Heart disease Unknown Social History Social History Element Codes Description Effective Dates Number of children Unknown 3 3 ([place], [place], [place]) 2014 Living arrangements Unknown House 01/11/2011 Number of adults in household Unknown 2 01/11/2011 Education level Unknown Post-Graduate PHD in 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 Unknown Has never used illegal drugs 011 Allergies, Adverse Reactions, Alerts Substance Reaction Codes Entered Date Inactivated Date Status Lisinopril cough Unknown 03/25/2014 No In active Date Active Past Medical History Illness Codes Condition Status Onset Date Resolved Date Irritable bowel synd nasir with constipation ICD-9: 564.1 ICD-10: K58.1 Active 07/01/2017 Unknown Cervicalgia ICD-9: 723.1 ICD-10: M54.2 Active [...] 01/20/2016 Unknown Encounter for immuni zation ICD-9: V04.81 ICD-10: Z23 Active 01/25/2017 Unknown Essential (primary) hypertension ICD-9: 401.9 ICD-10: I10 Active 12/24/2013 Unknown Other hypotension ICD-9: 458.8 ICD-10: I95.89 [...] ICD-10: F32.0 Active 06/06/2014 Unknown IRRITABLE COLON ICD-9: 564.1 Active 12/04/2014 [...] Condition Codes Effectiv e Dates Condition Status Irritable bowel synd nasir with constipation ICD-9: 564.1 ICD-10: K58.1 07/01/2017 Active Cervicalgia ICD-9: 723.1 ICD-10: M54.2 06/21/2017 [...] 01/20/2016 Active Encounter for immuni zation ICD-9: V04.81 ICD-10: Z23 01/25/2017 Active Essential (primary) hypertension ICD-9: 401.9 ICD-10: I10 12/24/2013 Active Other hypotension ICD-9: 458.8 ICD-10: I95.89 [...] 311 ICD-10: F32.0 06/06/2014 Active IRRITABLE COLON ICD-9: 564.1 12/04/2014 Active [...] Date Stop Date Sta tus Fill Instructions Protonix 40 mg table t,delayed release RxNorm: 173880 1 Tablet(s) PO daily 07/04/2017 01/29/2018 Ac tive clopidogrel 75 mg ta blet RxNorm: 985678 TAKE 1 TABLET BY MOUT H EVERY DAY 06/20/2017 12/16/2017 Ac tive cetirizine 10 mg tablet RxNorm: 4984529 TABLET(S) 1 TABLET(S) PO DAILY TO TAKE I NSTEAD OF THE CLARITIN 06/06/2017 04/01/2018 Active lisinopril 20 mg tablet RxNorm: 381490 TAKE 1 TABLET DAILY 05/30/2017 11/25/2017 Active Mobic 15 mg tablet RxNorm: 893614 1/2 TABLET(S) DAILY 03/21/2017 09/16/2017 Active donepezil 10 mg tablet RxNorm: 701208 1 Tablet(s) PO daily TAKE 1 TABLET BY MO UTH ONCE DAILY 02/28/2017 11/24/2017 Active Patient requests 90 days s upply Requip 0.25 mg tablet RxNorm: 305545 1 TABLET(S) PO BID 01/24/2017 06/22/2017 Inactive Patient requests 90 days supply clopidogrel 75 mg ta blet RxNorm: 317151 TAKE 1 TABLET BY MOUT H EVERY DAY 12/23/2016 06/19/2017 In active lisinopril 20 mg tablet RxNorm: 355617 TAKE 1 TABLET DAILY 11/26/2016 05/24/2017 Inactive Kenalog 40 mg/mL hugo pension for injection RxNorm: 4072563 Milliliter(s) Inj 11/25/2016 11/25/2016 In active cefdinir 300 mg capsule RxNorm: 234807 1 Capsule(s) PO BID 11/23/2016 11/27/2016 Inactive cefdinir 300 mg capsule RxNorm: 856613 1 Capsule(s) PO BID 11/23/2016 11/22/2016 Inactive nystatin 100,000 uni t/mL oral suspension RxNorm: 461657 5 Milliliter(s) PO QI D 11/18/2016 11/27/2016 In active azithromycin 250 mg tablet RxNorm: 304345 1 Tablet(s) PO UD 2 p ills on day #1 then one pill daily x 4 more days 11/18/2016 11/22/2016 Inactive Mobic 15 mg tablet RxNorm: 034413 1/2 TABLET(S) DAILY 10/28/2016 03/20/2017 Inactive citalopram 10 mg tablet RxNorm: 836558 TAKE 1 TABLET BY MOUTH EVERY DAY 10/07/2016 03/05/2017 In active Patient requests 90 days supply mirtazapine 15 mg ta blet RxNorm: 363390 TAKE ONE TABLET BY MO UT EVERY DAY 10/06/2016 09/30/2017 Ac tive mirtazapine 15 mg ta blet RxNorm: 101706 TAKE ONE TABLET BY MO UT EVERY DAY 10/05/2016 10/05/2016 In active Patient requests 90 days supply amlodipine 10 mg tablet RxNorm: 908415 TAKE 1 TABLET BY MOUTH EVERY DAY 09/14/2016 01/24/2017 In active clopidogrel 75 mg ta blet RxNorm: 399899 TAKE 1 TABLET BY MOUT H EVERY DAY 06/28/2016 12/22/2016 In active lisinopril 20 mg tablet RxNorm: 708286 TAKE 1 TABLET DAILY 05/31/2016 11/25/2016 Inactive donepezil 10 mg tablet RxNorm: 727703 TAKE 1 TABLET BY MOUTH ONCE DAILY 05/11/2016 11/06/2016 In active donepezil 10 mg tablet RxNorm: 658067 TAKE 1 TABLET BY MOUTH ONCE DAILY 04/26/2016 02/28/2017 In active Mobic 15 mg tablet RxNorm: 159072 1/2 Tablet(s) daily 04/19/2016 10/15/2016 Inactive citalopram 10 mg tablet RxNorm: 347458 TAKE 1 TABLET BY MOUTH EVERY DAY 04/06/2016 04/25/2016 In active cetirizine 10 mg tablet RxNorm: 7117814 Tablet(s) 1 TABLET(S) PO DAILY TO TAKE I NSTEAD OF THE CLARITIN 03/30/2016 02/22/2017 Inactive amlodipine 10 mg tablet RxNorm: 447071 TAKE 1 TABLET BY MOUTH EVERY DAY 03/08/2016 01/24/2017 In active amlodipine 10 mg tablet RxNorm: 916705 1 Tablet(s) PO daily TAKE 1 TABLET BY MO UTH ONCE DAILY 03/03/2016 03/07/2016 Inactive Requip 0.25 mg tablet RxNorm: 939683 1 Tablet(s) PO BID 03/03/2016 09/13/2016 Inactive Mobic 15 mg tablet RxNorm: 562309 1 Tablet(s) daily not refilled on a 02/23/2016 04/18/2016 In active cetirizine 10 mg tablet RxNorm: 5347620 1 TABLET(S) PO DAILY TO TAKE INSTEAD OF THE CLARITIN 02/19/2016 03/19/2016 Inactive lisinopril 20 mg tablet RxNorm: 505312 TAKE 1 TABLET DAILY 02/18/2016 05/17/2016 Inactive Namenda 10 mg tablet RxNorm: 094474 Tablet(s) TAKE 1 TABLET BY MOUTH TWICE D AILY. 02/17/2016 No Stop Date Active lisinopril 20 mg tablet RxNorm: 363946 TAKE 1 TABLET DAILY 01/23/2016 01/24/2017 Inactive cetirizine 10 mg tablet RxNorm: 0496948 1 Tablet(s) PO daily to take instead of the claritin 01/21/2016 02/18/2016 Inactive amlodipine 10 mg tablet RxNorm: 924491 1 Tablet(s) PO daily TAKE 1 TABLET BY MO UTH ONCE DAILY 12/02/2015 03/02/2016 Inactive clopidogrel 75 mg ta blet RxNorm: 306514 TAKE 1 TABLET BY MOUT H EVERY DAY 11/25/2015 05/22/2016 In active Mobic 15 mg tablet RxNorm: 718112 TAKE(1/2) TABLET DAILY. 11/17/2015 02/22/2016 Inactive lisinopril 20 mg tablet RxNorm: 660742 TAKE 1 TABLET DAILY 11/17/2015 01/15/2016 Inactive Mobic 15 mg tablet RxNorm: 192010 1/2 Tablet(s) PO daily TAKE (1/2) TABLET DAILY. 11/12/2015 11/16/2015 Inactive citalopram 10 mg tablet RxNorm: 981742 TAKE 1 TABLET BY MOUTH EVERY DAY 10/27/2015 04/05/2016 In active Requip 0.25 mg tablet RxNorm: 723440 1 Tablet(s) PO BID 10/15/2015 02/11/2016 Inactive Requip 0.25 mg tablet RxNorm: 930959 1 Tablet(s) PO BID 10/15/2015 10/14/2015 Inactive mirtazapine 15 mg ta blet RxNorm: 793706 1 Tablet(s) PO daily 09/08/2015 10/01/2016 Inactive donepezil 10 mg tablet RxNorm: 321546 TAKE 1 TABLET DAILY 09/01/2015 04/25/2016 Inactive amlodipine 10 mg tablet RxNorm: 040144 1 Tablet(s) PO daily TAKE 1 TABLET BY MO UTH ONCE DAILY 08/18/2015 12/01/2015 Inactive clopidogrel 75 mg ta blet RxNorm: 481643 1 Tablet(s) PO daily TAKE 1 TABLET DAILY 05/20/2015 11/24/2015 In active Mobic 15 mg tablet RxNorm: 170447 Tablet(s) TAKE (1/2) TABLET DAILY. 04/23/2015 10/19/2015 In active lisinopril 20 mg tablet RxNorm: 447421 TAKE 1 TABLET DAILY 04/22/2015 11/16/2015 Inactive Mobic 15 mg tablet RxNorm: 327939 TAKE (1/2) TABLET DAILY. 04/22/2015 04/22/2015 Inactive sulfamethoxazole 400 mg-trimethoprim 80 mg tablet RxNorm: 820327 1/2 Tablet(s) PO nancy y 03/11/2015 04/09/2015 Inactive Vesicare 5 mg tablet RxNorm: 619589 1 Tablet(s) PO 03/11/2015 05/09/2015 Inactive Protonix 40 mg table t,delayed release RxNorm: 132114 1 Tablet(s) PO BID 03/05/2015 09/30/2015 In active ok to change from [address] Archana rivera clopidogrel 75 mg ta blet RxNorm: 469419 1 Tablet(s) PO daily TAKE 1 TABLET DAILY 02/20/2015 05/19/2015 In active Namenda 10 mg tablet RxNorm: 217418 Tablet(s) TAKE 1 TABLET BY MOUTH TWICE D AILY. 01/22/2015 02/16/2016 Inactive amlodipine 10 mg tablet RxNorm: 654329 TAKE 1 TABLET BY MOUTH ONCE DAILY 01/14/2015 08/17/2015 In active donepezil 10 mg tablet RxNorm: 786794 TAKE 1 TABLET DAILY 01/06/2015 08/31/2015 Inactive Levsin 0.125 mg tablet RxNorm: 4035737 1 Tablet(s) PO QID as needed FOR ABD REJI N 11/05/2014 12/03/2014 In active Mobic 15 mg tablet RxNorm: 350345 1/2 Tablet(s) daily TAKE (1/2) TABLET DA MOIZ. 10/01/2014 04/21/2015 Inactive ciprofloxacin 500 mg tablet RxNorm: 522264 1 Tablet(s) PO BID 09/27/2014 10/01/2014 Inactive Flagyl 500 mg tablet RxNorm: 969520 1 Tablet(s) PO TID 09/27/2014 10/03/2014 Inactive take probiotic BID donepezil 10 mg tablet RxNorm: 039582 1/2 Tablet(s) PO BID 09/24/2014 01/05/2015 Inactive lisinopril 20 mg tablet RxNorm: 895443 TAKE 1 TABLET DAILY 09/05/2014 04/21/2015 Inactive amlodipine 10 mg tablet RxNorm: 421594 1 Tablet(s) PO daily 09/02/2014 12/30/2014 Inactive mirtazapine 15 mg ta blet RxNorm: 201441 1 Tablet(s) PO daily 08/28/2014 09/07/2015 Inactive donepezil 10 mg tablet RxNorm: 826240 1 Tablet(s) PO daily 08/28/2014 09/23/2014 Inactive citalopram 10 mg tablet RxNorm: 398138 1 Tablet(s) PO daily 08/28/2014 03/25/2015 Inactive citalopram 10 mg tablet RxNorm: 042196 1 Tablet(s) PO daily 08/07/2014 08/27/2014 Inactive citalopram 10 mg tablet RxNorm: 453787 1 Tablet(s) PO daily 08/07/2014 08/06/2014 Inactive Flagyl 500 mg tablet RxNorm: 022173 1 Tablet(s) PO TID 08/02/2014 08/01/2014 Inactive take probiotic BID Flagyl 500 mg tablet RxNorm: 656624 1 Tablet(s) PO TID 08/02/2014 08/08/2014 Inactive take probiotic BID tamsulosin ER 0.4 mg capsule,extended release 24 hr RxNorm: 846961 1 Capsule(s) PO QHS 06/06/2014 03/10/2015 Inactive TAKE AT BEDTIME escitalopram 5 mg ta blet RxNorm: 466927 1 Tablet(s) PO QPM 06/06/2014 08/06/2014 Inactive doxycycline hyclate 100 mg tablet RxNorm: 077808 1 Tablet(s) PO BID 05/31/2014 05/30/2014 Inactive doxycycline hyclate 100 mg tablet RxNorm: 197811 1 Tablet(s) PO BID 05/31/2014 06/06/2014 Inactive please deliver if not picked by 3pm Aricept 5 mg tablet RxNorm: 505821 1 Tablet(s) PO BID 05/29/2014 08/27/2014 Inactive losartan 50 mg tablet RxNorm: 271551 1/2 Tablet(s) PO daily 05/29/2014 12/28/2015 Inactive clopidogrel 75 mg ta blet RxNorm: 371115 1 Tablet(s) PO daily 05/27/2014 05/26/2014 Inactive Mobic 15 mg tablet RxNorm: 659817 TAKE (1/2) TABLET DAILY. 05/27/2014 09/30/2014 Inactive clopidogrel 75 mg ta blet RxNorm: 502332 TAKE 1 TABLET DAILY 05/27/2014 02/19/2015 Inactive Mobic 15 mg tablet RxNorm: 378959 1/2 Tablet(s) PO daily TAKE (1/2) TABLET DAILY. 05/27/2014 05/26/2014 Inactive prednisone 20 mg tablet RxNorm: 423039 1 Tablet(s) PO BID 05/21/2014 05/25/2014 Inactive albuterol sulfate 2. 5 mg/0.5 mL solution for nebulization RxNorm: 664585 1 inhale INH Q4H as needed 05/21/2014 09/01/2015 Inactive prednisone 20 mg tablet RxNorm: 769697 1 Tablet(s) PO BID 05/21/2014 05/20/2014 Inactive cefdinir 300 mg capsule RxNorm: 485154 1 Capsule(s) PO BID 05/20/2014 05/26/2014 Inactive Zithromax Z-Dequan 250 mg tablet RxNorm: 473092 1 Tablet(s) PO UD 05/20/2014 05/24/2014 Inactive zpack lorazepam 0.5 mg tablet RxNorm: 039573 1/2 to 1 Tablet(s) PO Q8 PRN as needed 04/30/2014 06/05/2014 In active Namenda 10 mg tablet RxNorm: 065861 TAKE 1 TABLET BY MOUTH TWICE DAILY. 04/15/2014 01/21/2015 In active Namenda 10 mg tablet RxNorm: 450452 1 Tablet(s) PO BID 04/15/2014 04/14/2014 Inactive losartan 50 mg tablet RxNorm: 050636 1 Tablet(s) PO daily 03/25/2014 05/28/2014 Inactive Protonix 40 mg table t,delayed release RxNorm: 517696 1 Tablet(s) PO QPM 03/21/2014 06/18/2014 In active ok to change from [address] Archana rivera fluticasone 50 mcg/a ctuation nasal spray,suspension RxNorm: 424744 1 [place] NASAL BID 03/04/2014 09/29/2014 Inactive Protonix 20 mg table t,delayed release RxNorm: 836950 1 Tablet(s) PO QPM 02/08/2014 03/20/2014 In active fluticasone 50 mcg/a ctuation nasal spray,suspension RxNorm: 819102 1 [place] NASAL BID 01/30/2014 03/03/2014 Inactive fluticasone 50 mcg/a ctuation nasal spray,suspension RxNorm: 480858 1 [place] NASAL BID 12/24/2013 01/29/2014 Inactive fluticasone 50 mcg/a ctuation nasal spray,suspension RxNorm: 339160 1 [place] NASAL BID 11/20/2013 12/23/2013 Inactive doxycycline hyclate 100 mg capsule RxNorm: 8586204 1 Capsule(s) PO BID 10/08/2013 10/17/2013 In active doxycycline hyclate 100 mg capsule RxNorm: 8200525 capsule oral 10/08/2013 10/29/2013 Inactive fluticasone 50 mcg/a ctuation nasal spray,suspension RxNorm: 386338 spray,suspension nasl 10/08/2013 11/19/2013 Inactive fluticasone 50 mcg/a ctuation nasal spray,suspension RxNorm: 673169 1 [place] NASAL BID Nasal spray- use twice daily, one spray per nostril twice daily, after 30 minutes, rinse out nose with saline spray. 10/08/2013 10/29/2013 Inactive mirtazapine 7.5 mg t ablet RxNorm: 096879 1/2 Tablet(s) PO daily 08/30/2013 08/27/2014 Inactive lorazepam 0.5 mg tablet RxNorm: 922279 1/2 Tablet(s) PO Q8 PRN 08/21/2013 04/29/2014 Inactive Aricept 5 mg tablet RxNorm: 357811 Tablet(s) PO TAKE 1 TABLET DAILY 08/21/2013 05/28/2014 In active Plavix 75 mg tablet RxNorm: 676636 Tablet(s) PO TAKE 1 TABLET DAILY 05/24/2013 12/04/2014 In active clopidogrel 75 mg ta blet RxNorm: 813799 tablet oral 05/24/2013 05/26/2014 Inactive Plavix 75 mg tablet RxNorm: 320008 1 Tablet(s) PO daily 05/23/2013 05/23/2013 Inactive meloxicam 15 mg tablet RxNorm: 560430 tablet oral 04/26/2013 03/25/2014 Inactive Mobic 15 mg tablet RxNorm: 962687 Tablet(s) PO TAKE (1/2) TABLET DAILY. 04/26/2013 05/26/2014 In active Mobic 15 mg tablet RxNorm: 392659 1/2 Tablet(s) PO daily 04/25/2013 04/25/2013 Inactive lisinopril 20 mg tablet RxNorm: 833021 1 Tablet(s) PO 04/04/2013 03/24/2014 Inactive finasteride 5 mg tablet RxNorm: 300913 tablet oral 03/22/2013 09/01/2015 Inactive lisinopril 10 mg tablet RxNorm: 088146 1 Tablet(s) PO daily 02/14/2013 04/03/2013 Inactive donepezil 5 mg tablet RxNorm: 448984 tablet oral 02/07/2013 12/24/2013 Inactive Influenza Virus Vacc ine 0.5 mL RxNorm: IM 02/06/2013 02/06/2013 Inactive Aricept 5 mg tablet RxNorm: 805764 1 Tablet(s) PO daily 02/06/2013 08/04/2013 Inactive tamsulosin ER 0.4 mg capsule,extended release 24 hr RxNorm: 584944 capsule,extended release 24hr oral 12/21/2012 06/05/2014 Inactive Plavix 75 mg tablet RxNorm: 302155 1 Tablet(s) PO daily 12/05/2012 05/03/2013 Inactive lorazepam 0.5 mg tablet RxNorm: 731075 1/2 Tablet(s) PO Q8 PRN 11/14/2012 08/20/2013 Inactive lisinopril 10 mg tablet RxNorm: 771191 1 Tablet(s) PO daily 08/08/2012 02/03/2013 Inactive Aricept 5 mg tablet RxNorm: 654896 1 Tablet(s) PO daily 08/08/2012 02/03/2013 Inactive Plavix 75 mg tablet RxNorm: 051538 1 Tablet(s) PO daily 07/04/2012 11/30/2012 Inactive Mobic 15 mg tablet RxNorm: 809063 1/2 Tablet(s) PO daily 03/20/2012 04/13/2013 Inactive Namenda 10 mg tablet RxNorm: 058755 1 Tablet(s) PO BID 02/22/2012 04/11/2014 Inactive lorazepam 0.5 mg tablet RxNorm: 340180 1/2 Tablet(s) PO Q8 PRN 02/02/2012 11/13/2012 Inactive lisinopril 10 mg tablet RxNorm: 999286 1 Tablet(s) PO daily 01/24/2012 07/21/2012 Inactive lisinopril 10 mg tablet RxNorm: 542865 1/2 Tablet(s) PO daily 12/20/2011 01/23/2012 Inactive Aricept 5 mg tablet RxNorm: 143974 1 Tablet(s) PO daily 07/14/2011 08/06/2012 Inactive Mobic 15 mg tablet RxNorm: 290587 1 Tablet(s) PO daily 07/14/2011 03/19/2012 Inactive Bentyl 10 mg Cap RxNorm: 545602 1 Capsule(s) PO daily one pill daily and every 6 hours if needed for bowel spasms. 06/23/2011 03/20/2012 Inactive amlodipine 5 mg Tab RxNorm: 278960 2 Tablet(s) PO daily 03/08/2011 12/08/2011 Inactive ZOSTAVAX 19,400 unit Sub-Q Soln RxNorm: 8173309 SQ 02/2502/25/2011 Inactive Pneumovax 23 25 mcg/ 0.5 mL Injection RxNorm: 335304 Milliliter(s) Inj 02/16/2011 02/16/2011 In active Influenza Virus Vacc ine 0.5 mL RxNorm: IM 02/09/2011 02/09/2011 Inactive Namenda 10 mg tablet RxNorm: 773978 1 Tablet(s) PO BID 02/01/2011 02/21/2012 Inactive dicyclomine 10 mg ca psule RxNorm: 153404 capsule oral 01/20/2011 10/29/2013 Inactive Namenda 5 mg tablet RxNorm: 529984 tablet oral 01/20/2011 12/24/2013 Inactive dicyclomine 20 mg ta blet RxNorm: 762293 tablet oral 01/15/2011 10/29/2013 Inactive Flagyl 500 mg Tab RxNorm: 233083 1 Tablet(s) PO TID 01/07/2011 01/06/2011 Inactive Cipro 500 mg Tab RxNorm: 789276 1 Tablet(s) PO BID 01/07/2011 06/23/2011 Inactive Cipro 500 mg Tab RxNorm: 497889 1 Tablet(s) PO BID 01/07/2011 01/06/2011 Inactive Flagyl 500 mg Tab RxNorm: 716921 1 Tablet(s) PO TID 01/07/2011 06/23/2011 Inactive metronidazole 500 mg tablet RxNorm: 098384 tablet oral 01/07/2011 12/24/2013 Inactive sulfamethoxazole 400 mg-trimethoprim 80 mg tablet RxNorm: 598260 tablet oral 12/24/2010 03/10/2015 In active mirtazapine 15 mg ta blet RxNorm: 437036 tablet oral 11/14/2010 12/24/2013 Inactive lisinopril 10 mg tablet RxNorm: 726855 tablet oral 11/14/2010 12/24/2013 Inactive doxycycline hyclate 100 mg tablet RxNorm: 613319 tablet oral 11/04/2010 12/24/2013 Inactive diphenoxylate-atropi ne 2.5 mg-0.025 mg tablet RxNorm: 4280523 tablet oral 11/03/2010 10/29/2013 In active ciprofloxacin 500 mg tablet RxNorm: 926321 tablet oral 11/01/2010 10/29/2013 Inactive aspirin 81 mg Cap, D elayed Release RxNorm: 007357 1 Capsule(s) PO daily No Start Date Active Vitamin D 1,000 unit Tab RxNorm: 344154 1 Tablet(s) PO daily No Start Date Active Senior Vitamin Tab RxNorm: 1 Tablet(s) PO daily No Start Date Active sulfamethoxazole 500 mg Tab RxNorm: 923255 1/2 Tablet(s) PO daily No Start Date 12/24/2013 Inactive Plavix 75 mg Tab RxNorm: 753550 1 Tablet(s) PO daily No Start Date 01/26/2011 Inactive hydrocodone 5 mg-alexey taminophen 325 mg tablet RxNorm: 196676 1 Tablet(s) PO Q6 as needed No Start Date 06/05/2014 Inactive Proscar 5 mg Tab RxNorm: 316672 1 Tablet(s) PO daily No Start Date 09/01/2015 Inactive Plavix 75 mg tablet RxNorm: 031347 1 Tablet(s) PO daily No Start Date 07/03/2012 Inactive albuterol sulfate 2. 5 mg/0.5 mL solution for nebulization RxNorm: 725106 1 inhale INH Q4H as needed No Start Date 05/20/2014 Inactive amlodipine 5 mg Tab RxNorm: 507919 1 Tablet(s) PO daily No Start Date 03/07/2011 Inactive Namenda 5 mg Tab RxNorm: 951344 1 Tablet(s) PO daily No Start Date 06/23/2011 Inactive Allergy Relief (ceti rizine) oral RxNorm: 217974 oral No S tart Date 12/19/2016 Inactive fluocinonide 0.05 % Ointment RxNorm: 545897 1 TOP BID PRN No Start Date 12/24/2013 Inactive amlodipine 5 mg tablet RxNorm: 175986 1 Tablet(s) PO daily No Start Date 09/01/2014 Inactive lisinopril Oral RxNorm: Oral No Start Date 12/08/2011 Inactive simvastatin 20 mg Tab RxNorm: 364418 1 Tablet(s) PO daily No Start Date 06/06/2014 Inactive Bentyl 20 mg Tab RxNorm: 593788 1 Tablet(s) PO Q6 PRN No Start Date 06/23/[address] Quintero Bentyl 10 mg Cap RxNorm: 787036 1 Capsule(s) PO BID No Start Date 06/22/2011 Inactive Plavix 75 mg Tab RxNorm: 602247 1 Tablet(s) PO every other day No Start Date 08/24/2011 Inactive lorazepam 0.5 mg tablet RxNorm: 953478 1/2 Tablet(s) PO Q8 PRN No Start Date 02/01/2012 Inactive lisinopril 10 mg tablet RxNorm: 513442 1 Tablet(s) PO daily No Start Date 12/19/2011 Inactive Flomax 0.4 mg 24 hr Cap RxNorm: 772593 1 Capsule(s) PO daily No Start Date 05/28/2014 Inactive Aricept 5 mg Tab RxNorm: 842751 1 Tablet(s) PO daily No Start Date 07/13/2011 Inactive Levsin 0.125 mg tablet RxNorm: 1975428 1 Tablet(s) PO QID as needed FOR ABD REJI N No Start Date 11/04/2014 Inactive mirtazapine 7.5 mg t ablet RxNorm: 682278 1/2 Tablet(s) PO daily No Start Date 08/29/2013 Inactive Mobic 15 mg Tab RxNorm: 066527 1 Tablet(s) PO daily No Start Date 07/13/2011 Inactive Medication Administered Medication Codes Instruc tions Start Date Status Kenalog 40 mg/mL suspension for injection RxNorm: 3572125 Milliliter 11/25/2016 No longer Active Influenza Virus Vaccine 0.5 mL RxNorm: 02/06/2013 No longer Active ZOSTAVAX 19,400 unit Sub-Q Soln RxNo rm: 3227673 02/25/2011 No longer A ctive Pneumovax 23 25 mcg/0.5 mL Injection RxNorm: 264543 Milliliter 02/16/2011 No longer Active Influenza Virus Vaccine 0.5 mL RxNorm: 02/09/2011 No longer Active Immunizations Vaccine Codes Date Status Influenza CVX: 141 01/25 completed Pneumococcal (Adult) CVX: 133 05/06/2015 completed Influenza CVX: 141 02/19 completed Influenza CVX: 141 03/26 completed Influenza CVX: 141 02/06 completed Influenza CVX: 141 02/20 completed DTaP CVX: 20 02/27/2011 completed Pneumococcal (Adult) CVX: 33 02/16/2011 completed Influenza CVX: 141 02/09 completed Pneumococcal (Adult) Unknown 02/05/2009 completed Pneumococcal (Adult) Unknown 02/05/2009 completed Assessments Condition Codes Effectiv e Dates Irritable bowel syndrome with constipation ICD-10: K58.1 ICD-9: 564.1 07/01/2017 Unsteadiness on feet ICD-10: R26.81 ICD-9: 781.2 06/21/2017 Gas pain ICD-10: R14.1 ICD-9: 787.3 06/21/2017 Essential (primary) hypertension ICD -10: I10 ICD-9: 401.1 06/21/2017 Pain in thoracic spine ICD-10: M54.6 ICD-9: 724.1 06/21/2017 Generalized anxiety disorder ICD-10: F41.1 ICD-9: 300.02 06/21/2017 Cervicalgia ICD-10: M54.2 ICD-9: 723.1 06/21/2017 Other allergic rhinitis ICD-10: J30. 89 ICD-9: 477.8 03/08/2017 Other hypotension ICD-10: I95.89 ICD-9: 458.8 01/25/2017 Encounter for immunization ICD-10: Z 23 ICD-9: V04.81 01/25/2017 Essential (primary) hypertension ICD -10: I10 ICD-9: 401.9 12/20/2016 Acute recurrent maxillary [...] ICD-9: 311 03/05/2015 ESSENTIAL HYPERTENSION ICD-9: 401.9 12/04/2014 MILD COGNITIVE [...] Visit Reason For Visit Effective Dates Notes diarrhea 07/01/2017 hypertension 06/21/2017 hypertension 03/21/2017 earache [...] BODY FLUID 02/18/2016 Uric Acid Body Fluid 480411 URIC ACID-FLUID 4.3 mg/dL 02/18/2016 Metabolic Ord15 [...] Ord15 CALCIUM 9.1 mg/dL 02/05/2016 Comp Metabolic Xue646 NA 129 mEq/L 10/08/2015 Comp Metabolic Qpm937 K 4.7 mEq/L 10/08/2015 Comp Metabolic Kif635 CL 98 mEq/L 10/08/2015 Comp Metabolic Qnd523 CO2 28.0 mEq/L 10/08/2015 Comp Metabolic Bkt439 AN ION GAP 8 10/08/2015 Comp Metabolic Uox357 GL UCOSE 84 mg/dL 10/08/2015 Comp Metabolic Xxt996 Cr eat 1.3 mg/dL 10/08/2015 Comp Metabolic Vlt398 eG FR 56 ml/min/1.73m2 10/07 Comp Metabolic Ari768 BUN 23 mg/dL 10/08/2015 Comp Metabolic Koc942 B/ C Ratio 17.8 Ratio 10/08/2015 Comp Metabolic Ehk526 CA LCIUM 9.3 mg/dL 10/08/2015 Comp Metabolic Amp372 AL K PHOS 68 U/L 10/08/2015 Comp Metabolic Bjz275 T(SGOT) 24 U/L 10/08/2015 Comp Metabolic Xtx038 AL T(SGPT) 15 U/L 10/08/2015 Comp Metabolic Hce257 BI LI T 0.5 mg/dL 10/08/2015 Comp Metabolic Clc077 AL BUMIN 4.0 g/dL 10/08/2015 Comp Metabolic Jpo228 TP RO 5.9 g/dL 10/08/2015 Comp Metabolic Pth574 GL OB 1.9 g/dL 10/08/2015 Comp Metabolic Oyq618 A/ G Ratio 2.1 Ratio 10/08/2015 Comp Metabolic Juk994 Os mo 262 mOsmo 10/08/2015 Lipid Ord30 [...] Ord30 C/HDL 2.3 Ratio 05/07/2015 Comp Metabolic Nfj742 NA 132 mEq/L 05/07/2015 Comp Metabolic Idt506 K 4.4 mEq/L 05/07/2015 Comp Metabolic Zvu650 CL 97 mEq/L 05/07/2015 Comp Metabolic Hig776 CO2 30.0 mEq/L 05/07/2015 Comp Metabolic Ldf062 AN ION GAP 9 05/07/2015 Comp Metabolic Bot015 GL UCOSE 78 mg/dL 05/07/2015 Comp Metabolic Vng705 Cr eat 1.2 mg/dL 05/07/2015 Comp Metabolic Cjc104 eG FR 60 ml/min/1.73m2 05/07 Comp Metabolic Ffn393 BUN 25 mg/dL 05/07/2015 Comp Metabolic Tke366 B/ C Ratio 20.3 Ratio 05/07/2015 Comp Metabolic Ozy363 CA LCIUM 9.6 mg/dL 05/07/2015 Comp Metabolic Zqj940 AL K PHOS 70 U/L 05/07/2015 Comp Metabolic Fuq300 T(SGOT) 27 U/L 05/07/2015 Comp Metabolic Oip161 AL T(SGPT) 20 U/L 05/07/2015 Comp Metabolic Fyl814 BI LI T 0.4 mg/dL 05/07/2015 Comp Metabolic Ybs570 AL BUMIN 4.0 g/dL 05/07/2015 Comp Metabolic Yok987 TP RO 5.8 g/dL 05/07/2015 Comp Metabolic Lkg038 GL OB 1.8 g/dL 05/07/2015 Comp Metabolic Xfs519 A/ G Ratio 2.3 Ratio 05/07/2015 Comp Metabolic Otr814 Os mo 268 mOsmo 05/07/2015 Cbc With [...] hTSH II 4.07 uIU/mL 05/07/2015 Comp Metabolic Mut605 NA 134 mEq/L 12/10/2014 Comp Metabolic Bpu349 K 4.8 mEq/L 12/10/2014 Comp Metabolic Sug019 CL 101 mEq/L 12/10/2014 Comp Metabolic Eck791 CO2 30.0 mEq/L 12/10/2014 Comp Metabolic Htx874 AN ION GAP 8 12/10/2014 Comp Metabolic Opu436 GL UCOSE 85 mg/dL 12/10/2014 Comp Metabolic Zou747 Cr eat 1.2 mg/dL 12/10/2014 Comp Metabolic Hcc941 eG FR 65 ml/min/1.73m2 12/10 Comp Metabolic Xjd711 BUN 25 mg/dL 12/10/2014 Comp Metabolic Clj385 B/ C Ratio 21.7 Ratio 12/10/2014 Comp Metabolic Ebw294 CA LCIUM 9.5 mg/dL 12/10/2014 Comp Metabolic Spp530 AL K PHOS 76 U/L 12/10/2014 Comp Metabolic Lgu142 T(SGOT) 27 U/L 12/10/2014 Comp Metabolic Lnv907 AL T(SGPT) 18 U/L 12/10/2014 Comp Metabolic Svr404 BI LI T 0.5 mg/dL 12/10/2014 Comp Metabolic Jsq670 AL BUMIN 4.1 g/dL 12/10/2014 Comp Metabolic Ash451 TP RO 5.7 g/dL 12/10/2014 Comp Metabolic Kry575 GL OB 1.6 g/dL 12/10/2014 Comp Metabolic Qwy708 A/ G Ratio 2.6 Ratio 12/10/2014 Comp Metabolic Xdp243 Os mo 272 mOsmo 12/10/2014 B12 Vkh449 B12 1011.00 pg/ml 12/10/2014 Lipid Ord30 CHOL [...] Differential Ord2 RDW 14.3 % 12/10/2014 CBC [id number] WBC 4.1 10e9/L 02/19/2013 CBC 6354917 RBC 4.39 10e12/L 02/19/2013 CBC 2693782 HGB 14.1 g/dL 02/19/2013 CBC 1145213 HCT DET 41.0 % 02/19/2013 CBC 9049539 MCV 93.4 fL 02/19/2013 CBC 7923140 MCH 32.1 pg 02/19/2013 CBC 7470837 MCHC 34.4 g/dL 02/19/2013 CBC 7804533 PLT 151 10e9/L 02/19/2013 CBC 2262835 MPV 11.8 fL 02/19/2013 CBC 2984289 YOVANNY % 63.2 % 02/19/2013 CBC 5755841 LY % 22.9 % 02/19/2013 CBC 6826971 MON % 11.5 % 02/19/2013 CBC 5307518 EOS % 2.2 % 02/19/2013 CBC 1583934 BASO % 0.2 % 02/19/2013 CBC 9809637 RDW 13.8 % 02/19/2013 CBC 3832404 ABS YOVANNY 2.59 10e9/L 02/19/2013 CBC 6529095 ABS LYMPH 0.94 10e9/L 02/19/2013 CBC 0724212 ABS MONO 0.47 10e9/L 02/19/2013 CBC 9318933 ABS EOS 0.09 10e9/L 02/19/2013 CBC 3003048 ABS BASO 0.01 10e9/L 02/19/2013 CBC 1659571 RDW-SD 46.0 fL 02/19/2013 TSH 2126546 TSH 2.094 uIU/ML 02/19/2013 FREE T4 1108549 FREE T4 1.18 NG/DL 02/19/2013 GFR CALC 2706862 GFR AA >60 ML/MIN 02/19/2013 GFR CALC 5898002 GFR NON -AA >60 ML/MIN 02/19/2013 CHEM 14 9161621 AST 30 U/L 02/19/2013 CHEM 14 4811127 ALT 19 IU/L 02/19/2013 CHEM 14 6236616 BUN 21 MG/DL 02/19/2013 CHEM 14 6385206 ALBUMIN 4.4 GM/DL 02/19/2013 CHEM 14 6306784 CHLORIDE 94 MMOL/L 02/19/2013 CHEM 14 4079748 BILI TOT 0.5 MG/DL 02/19/2013 CHEM 14 8424827 ALK PHOS 75 U/L 02/19/2013 CHEM 14 4135275 SODIUM 133 MMOL/L 02/19/2013 CHEM 14 8050704 CREATINI NE 1.07 MG/DL 02/19/2013 CHEM 14 6118752 CALCIUM 9.6 MG/DL 02/19/2013 CHEM 14 9113143 POTASSIUM 4.6 MMOL/L 02/19/2013 CHEM 14 5559814 PROT TOT 6.1 GM/DL 02/19/2013 CHEM 14 9690640 GLUCOSE 94 MG/DL 02/19/2013 CHEM 14 1522855 BICARB 31 MMOL/L 02/19/2013 CHEM 14 6124227 ANION GAP 8 MEQ/L 02/19/2013 UA 21256 Specific [place] 1.015 DateTime(Free Text in Aprima ) UA 51200 PH 6 DateTime(Free Text in ) UA 42231 GLUCOSE neg DateTime(Free Text in ) UA 85504 Protein neg DateTime(Free Text in ) UA 67640 Blood neg DateTime(Free Text in ) UA 47558 Bilirubin neg DateTime(Free Text in ) UA 91002 Ketones neg DateTime(Free Text in ) UA 56293 Urobilinogen neg DateTime(Free Text in ) UA 52856 Nitrite neg DateTime(Free Text in ) UA 10177 Leukocytes neg DateTime(Free Text in ) Review of Systems System Result Effective Dates Constitutional recent illness 07/01/2017 Constitutional No chills [...] congestion 12/20/2016 Respiratory cough 2016 Psychiatric anxiety 0808/2016 Constitutional No chills 12/20/2016 Constitutional No diaphoresis [...] Neurologic No pain, back 07/26/2014 Psychiatric anxiety /2 Psychiatric depression 0 07/26/2014 Constitutional recent illness [...] erythema 10/08/2013 None Full Exam - General 1995 Ears/Nose/Throat internal nose Drainage: cloudy 10/08/2013 None [...] VACC PRSV FREE I NC ANTIG CPT-4: 72433 01/25/2017 THER/PROPH/DIAG INJ SC/IM CPT-4: 73348 11/25/2016 TRIAMCINOLONE ACET I [place] NOS CPT-4: J3301 11/25/2016 DRAIN/INJECT JOINT/B URSA CPT-4: 47393 02/17/2016 IMMUNIZATION ADMIN CPT- 4: 10214 05/06/2015 PNEUMOCOCCAL VACC 13 TIFFANIE IM Formatting Model/CDA Sections, Assigned to/Celia Minaya SNOMED CT: 04841671 CPT-4: 92786Bprxivo 05/06/2015 ADMIN INFLUENZA VIRU S VAC CPT-4: G0008 02/19/2015 FLU VACC 4 TIFFANIE 3 YRS PLUS IM Formatting Model/CDA Sections, Assigned to SNOMED CT: 78624026 CPT-4: 31768Cgbotoq 02/19/2015 URINALYSIS NONAUTO W /O SCOPE CPT-4: 71147 05/23/2014 ADMIN INFLUENZA VIRU S VAC CPT-4: G0008 03/26/2014 FLU VAC NO PRSV 4 VA L 3 YRS+ Assigned to/Celia Minaya CPT-4: 68250Flrvetp 03/26/2014 PRESCRIP TRANSMIT A ERX SY CPT-4: G8553 04/04/2013 ROUTINE VENIPUNCTURE CPT-4: 06019 02/19/2013 ADMIN INFLUENZA VIRU S VAC CPT-4: G0008 02/06/2013 FLULAVAL VACC, 3 YRS & >, IM CPT-4: Q2036 02/06/2013 06722 EST. PATIENT, LEVEL IV CPT-4: 14587 06/19/2012 PRESCRIP TRANSMIT A ERX SY CPT-4: G8553 06/19/2012 PRESCRIP TRANSMIT A ERX SY CPT-4: G8553 03/20/2012 PRESCRIP TRANSMIT A ERX SY CPT-4: G8553 06/23/2011 IMMUNIZATION ADMIN CPT- 4: 03658 02/25/2011 ZOSTER VACC SC (No lloyd stephens, patient supplied vaccine) CPT-4: 10815LR 02/25/2011 ADMIN PNEUMOCOCCAL V ACCINE SNOMED CT: 94422450 CPT-4: G0009 02/16/2011 Pneumococcal Polysac charide Vaccine, 23-Valent, Ad CPT-4: 65592 02/16/2011 ADMIN INFLUENZA VIRU S VAC CPT-4: G0008 02/09/2011 FLULAVAL VACC, 3 YRS & >, IM CPT-4: Q2036 02/09/2011 PRESCRIP TRANSMIT A ERX SY CPT-4: G8553 02/01/2011 URINALYSIS NONAUTO W /O SCOPE CPT-4: 02128 01/27/2011 Vital Signs Date Vital 07/01/2017 Blood Pressure 1: 134/64 Code: 8480-6 BMI: 21.0 Code: 52695-5 Height: 5'9" Weight: 142 lbs 06/21/2017 Blood Pressure 1: 142/80 Code: 8480-6 BMI: 21.0 Code: 19019-3 Heart Rate 1: 63 bpm Height: 5'9" SpO2: 98% Weight: 142 lbs 03/21/2017 Blood Pressure 1: 128/66 Code: 8480-6 BMI: 20.8 Code: 07885-8 Heart Rate 1: 61 bpm Height: 5'9" SpO2: 98% Weight: 141 lbs 03/08/2017 Blood Pressure 1: 134/68 Code: 8480-6 BMI: 20.4 Code: 40522-7 Heart Rate 1: 56 bpm Height: 5'9" SpO2: 99% Weight: 138 lbs 01/25/2017 Blood Pressure 1: 98/62 Code: 8480-6 BMI: 20.6 Code: 97084-2 Heart Rate 1: 71 bpm Height: 5'9" SpO2: 97% Weight: 139 lbs 8 oz 12/20/2016 Blood Pressure 1: 120/68 Code: 8480-6 BMI: 20.4 Code: 78153-9 Heart Rate 1: 70 bpm Height: 5'9" [...] 1: 120/60 Code: 8480-6 BMI: 20.7 Code: 24662-6 Heart Rate 1: 74 bpm Height: 5'9" SpO2: 95% Weight: 140 lbs 08/23/2016 Blood Pressure 1: 118/68 Code: 8480-6 BMI: 20.8 Code: 96673-2 Heart Rate 1: 54 bpm Height: 5'9" SpO2: 97% Weight: 141 lbs 04/26/2016 Blood Pressure 1: 108/64 Code: 8480-6 BMI: 21.0 Code: 00837-1 Heart Rate 1: 62 bpm Height: 5'9" SpO2: 95% Weight: 142 lbs 02/17/2016 Blood Pressure 1: 138/80 Code: 8480-6 BMI: 20.2 Code: 64080-1 Heart Rate 1: 76 bpm Height: 5'9" SpO2: 97% Weight: 137 lbs 02/09/2016 Blood Pressure 1: 140/76 Code: 8480-6 BMI: 20.2 Code: 70954-9 Heart Rate 1: 72 bpm Height: 5'9" SpO2: 96% Weight: 137 lbs 02/03/2016 Blood Pressure 1: 136/80 Code: 8480-6 BMI: 20.7 Code: 93265-7 Heart Rate 1: 86 bpm Height: 5'9" SpO2: 96% Weight: 140 lbs 01/26/2016 Blood Pressure 1: 144/78 Code: 8480-6 BMI: 20.7 Code: 85793-0 Heart Rate 1: 73 bpm Height: 5'9" SpO2: 97% Temperature: 37.0 (C ) / 98.6 (F) Weight: 140 lbs 01/21/2016 Blood Pressure 1: 116/62 Code: 8480-6 BMI: 20.4 Code: 55470-6 Heart Rate 1: 66 bpm Height: 5'9" SpO2: 97% Weight: 138 lbs 12/29/2015 Blood Pressure 1: 130/74 Code: 8480-6 BMI: 20.4 Code: 68026-6 Heart Rate 1: 51 bpm Height: 5'9" SpO2: 98% Weight: 138 lbs 09/02/2015 Blood Pressure 1: 126/60 Code: 8480-6 BMI: 22.3 Code: 82181-0 Heart Rate 1: 55 bpm Height: 5'9" SpO2: 96% Weight: 151 lbs 05/06/2015 Blood Pressure 1: 132/72 Code: 8480-6 BMI: 21.0 Code: 17653-9 Heart Rate 1: 63 bpm Height: 5'9" SpO2: 97% Weight: 142 lbs 03/05/2015 Blood Pressure 1: 130/68 Code: 8480-6 BMI: 21.0 Code: 17490-7 Heart Rate 1: 61 bpm Height: 5'9" SpO2: 96% Weight: 142 lbs 12/04/2014 Blood Pressure 1: 122/64 Code: 8480-6 BMI: 21.3 Code: 73787-9 Heart Rate 1: 72 bpm Height: 5'9" Weight: 144 lbs 09/24/2014 Blood Pressure 1: 142/80 Code: 8480-6 BMI: 20.4 Code: 34907-0 Heart Rate 1: 80 bpm Height: 5'9" Weight: 138 lbs 09/09/2014 Blood Pressure 1: 122/74 Code: 8480-6 BMI: 20.5 Code: 80335-8 Heart Rate 1: 64 bpm Height: 5'9" Weight: 139 lbs 07/26/2014 Blood Pressure 1: 136/82 Code: 8480-6 BMI: 20.4 Code: 38008-1 Heart Rate 1: 87 bpm Height: 5'9" SpO2: 92% Weight: 138 lbs 07/10/2014 Blood Pressure 1: 130/74 Code: 8480-6 BMI: 21.1 Code: 22331-3 Heart Rate 1: 64 bpm Height: 5'9" Weight: 143 lbs 06/06/2014 Blood Pressure 1: 142/88 Code: 8480-6 BMI: 20.4 Code: 81880-3 Heart Rate 1: 68 bpm Height: 5'9" Weight: 138 lbs 05/29/2014 Blood Pressure 1: 108/72 Code: 8480-6 BMI: 20.5 Code: 61066-6 Heart Rate 1: 60 bpm Height: 5'9" Weight: 139 lbs 05/20/2014 Blood Pressure 1: 140/72 Code: 8480-6 BMI: 21.6 Code: 84190-2 Heart Rate 1: 60 bpm Height: 5'9" SpO2: 98% Temperature: 36.2 (C ) / 97.2 (F) Weight: 146 lbs 03/25/2014 Blood Pressure 1: 128/60 Code: 8480-6 BMI: 21.4 Code: 18882-3 Heart Rate 1: 62 bpm Height: 5'9" Weight: 145 lbs 02/08/2014 Blood Pressure 1: 136/82 Code: 8480-6 BMI: 21.3 Code: 43990-0 Heart Rate 1: 68 bpm Height: 5'9" Weight: 144 lbs 12/24/2013 Blood Pressure 1: 122/76 Code: 8480-6 BMI: 21.6 Code: 38795-8 Heart Rate 1: 58 bpm Height: 5'9" Weight: 146 lbs 11/20/2013 Blood Pressure 1: 112/62 Code: 8480-6 BMI: 20.7 Code: 29974-0 Heart Rate 1: 56 bpm Height: 5'9" Weight: 140 lbs 10/30/2013 Blood Pressure 1: 130/68 Code: 8480-6 BMI: 20.1 Code: 38024-2 Heart Rate 1: 68 bpm Height: 5'9" SpO2: 96% Weight: 136 lbs 10/08/2013 Blood Pressure 1: 128/72 Code: 8480-6 BMI: 20.8 Code: 41214-8 Heart Rate 1: 60 bpm Height: 5'9" Temperature: 36.6 (C ) / 97.8 (F) Weight: 141 lbs 06/18/2013 Blood Pressure 1: 124/78 Code: 8480-6 BMI: 20.8 Code: 70110-9 Heart Rate 1: 64 bpm Height: 5'9" Weight: 141 lbs 04/04/2013 Blood Pressure 1: 138/60 Code: 8480-6 BMI: 20.8 Code: 02198-6 Heart Rate 1: 56 bpm Height: 5'9" Weight: 141 lbs 02/19/2013 Blood Pressure 1: 152/74 Code: 8480-6 BMI: 21.0 Code: 93048-7 Heart Rate 1: 60 bpm Height: 5'9" Weight: 142 lbs 10/16/2012 Blood Pressure 1: 122/70 Code: 8480-6 BMI: 20.8 Code: 25593-8 Heart Rate 1: 64 bpm Height: 5'9" Weight: 141 lbs 06/19/2012 Blood Pressure 1: 120/72 Code: 8480-6 BMI: 21.1 Code: 77276-6 Heart Rate 1: 60 bpm Height: 5'9" Weight: 143 lbs 03/20/2012 Blood Pressure 1: 114/76 Code: 8480-6 Heart Rate 1: 60 bpm Respiratory Rate: 16 bpm Weight: 143 lbs 01/24/2012 Blood Pressure 1: 134/70 Code: 8480-6 Heart Rate 1: 64 bpm Weight: 143 lbs 12/20/2011 Blood Pressure 1: 98/72 Code: 8480-6 BMI: 21.1 Code: 54734-9 Heart Rate 1: 60 bpm Height: 5'9" Respiratory Rate: 16 bpm Weight: 143 lbs 12/09/2011 Blood Pressure 1: 110/60 Code: 8480-6 Heart Rate 1: 66 bpm SpO2: 98% Weight: 141 lbs 08/25/2011 Blood Pressure 1: 112/70 Code: 8480-6 BMI: 20.8 Code: 92683-7 Heart Rate 1: 54 bpm Height: 5'9" Respiratory Rate: 16 bpm Weight: 141 lbs 06/23/2011 Blood Pressure 1: 126/64 Code: 8480-6 Heart Rate 1: 60 bpm Respiratory Rate: 16 bpm Weight: 142 lbs 04/19/2011 Blood Pressure 1: 124/64 Code: 8480-6 BMI: 21.1 Code: 22770-9 Heart Rate 1: 64 bpm Height: 5'9" Respiratory Rate: 16 bpm Weight: 143 lbs 03/23/2011 Blood Pressure 1: 137/71 Code: 8480-6 Heart Rate 1: 57 bpm 03/08/2011 Blood Pressure 1: 154/70 Code: 8480-6 BMI: 20.8 Code: 03278-9 Heart Rate 1: 60 bpm Height: 5'9" Respiratory Rate: 16 bpm Weight: 141 lbs 03/01/2011 Blood Pressure 1: 178/80 Code: 8480-6 Blood Pressure 2: 168/70 Code: 8480-6 BMI: 24.1 Code: 73198-3 Heart Rate 1: 60 bpm Height: 5'9" Respiratory Rate: 16 bpm Weight: 163 lbs 02/01/2011 Blood Pressure 1: 162/84 Code: 8480-6 Heart Rate 1: 60 bpm Respiratory Rate: 16 bpm Weight: 144 lbs 01/27/2011 Blood Pressure 1: 138/54 Code: 8480-6 BMI: 21.1 Code: 63349-3 Heart Rate 1: 68 bpm Height: 5'9" Respiratory Rate: 16 bpm Weight: 143 lbs 01/26/2011 Blood Pressure 1: 148/86 Code: 8480-6 BMI: 21.3 Code: 36002-6 Heart Rate 1: 74 bpm Height: 5'9" Weight: 144 lbs 01/15/2011 Blood Pressure 1: 136/76 Code: 8480-6 BMI: 20.5 Code: 24145-0 Heart Rate 1: 70 bpm Height: 5'10" Weight: 141 lbs 01/06/2011 Blood Pressure 1: 148/72 Code: 8480-6 BMI: 20.2 Code: 78731-0 Heart Rate 1: 72 bpm Height: 5'10" Respiratory Rate: 12 bpm Weight: 139 lbs Functional Status No Functional Status data History of Present Illness Symptom Name Status Resu lt Effective Date Notes diarrhea Quality constant 07/01/2017 None diarrhea Onset [...] s cardiac disease 08/25/2011 None hypertension [facility] 06/23/2011 None hypertension Onset and [...] started him o n lisinopril. hypertension [facility] 03/08/2011 Dr Merlos increased amlod ipine [...] Encounters Encounter Performer Loca tion Codes Date EST. PATIENT, LEVEL III Diagnosis: Irritable bowel syndrome with constipation[ICD10: K58.1] Ruchi Carlos MD, [facility] CPT-4: 03896 07/01/2017 ([id number] EST. P ATIENT, LEVEL IV Diagnosis: Essential (primary) hypertension[ICD10: I10] Diagnosis: Gas pain[ICD10: R14.1] Diagnosis: Generalized anxiety disorder[ICD10: F41.1] Diagnosis: Cervicalgia[ICD10: M54.2] Diagnosis: Pain in thoracic spine[ICD10: M54.6] Diagnosis: Unsteadiness on feet[ICD10: R26.81] Ale Carlos MD, [facility] CPT- 4: 76126 06/21/2017 ([id number] 70383 EST. P ATIENT, LEVEL III Diagnosis: Essential (primary) hypertension[ICD10: I10] Ale Carlos MD, [facility] CPT-4: 69543 03/21/2017 25923 EST. PATIENT, LEVEL III Diagnosis: Other allergic rhinitis[ICD10: J30.89] Nelly Carlos MD, [facility] CPT-4: 71443 03/08/2017 ([id number]) 16878 EST. P ATIENT, LEVEL III Diagnosis: Encounter for immunization[ICD10: Z23] Diagnosis: Other hypotension[ICD10: I95.89] Ale Carlos MD, [facility] CPT-4: 80754 01/25/2017 ([id number]) 37027 EST. P ATIENT, LEVEL III Diagnosis: Essential (primary) hypertension[ICD10: I10] Diagnosis: Acute recurrent maxillary sinusitis[ICD10: J01.01] Ale Carlos MD, [facility] CPT-4: 75009 12/20/2016 ([id number]) 61834 EST. P ATIENT, LEVEL III Diagnosis: Acute recurrent ethmoidal sinusitis[ICD10: J01.21] Ale Carlos MD, [facility] CPT-4: 03408 12/01/2016 ([id number]) 38981 EST. P ATIENT, LEVEL III Diagnosis: Bronchitis, not specified as acute or chronic[ICD10: J40] Diagnosis: Cough[ICD10: R05] Ale Carlos MD, [facility] CPT-4: 09522 11/25/2016 ([id number]) 85437 EST. P ATIENT, LEVEL III Diagnosis: Cough[ICD10: R05] Diagnosis: Bronchitis, not specified as acute or chronic[ICD10: J40] Diagnosis: Candidal esophagitis[ICD10: B37.81] Ale Carlos MD, [facility] CPT- 4: 79028 11/18/2016 ([id number]) 92208 EST. P ATIENT, LEVEL IV Diagnosis: Essential (primary) hypertension[ICD10: I10] Diagnosis: Mild cognitive impairment, so stated[ICD10: G31.84] Ale Carlos MD, [facility] CPT-4: 01310 08/23/2016 ([id number]) 54144 EST. P ATIENT, LEVEL III Diagnosis: Essential (primary) hypertension[ICD10: I10] Ale Carlos MD, [facility] CPT-4: 98611 04/26/2016 ([id number]) Miscellaneou s no charge Diagnosis: Olecranon bursitis, right elbow[ICD10: M70.21] Nelly Carlos MD, [facility] CPT-4: 83300 02/09/2016 ([id number]) 47913 EST. P ATIENT, LEVEL III Diagnosis: Olecranon bursitis, right elbow[ICD10: M70.21] Nelly Carlos MD, [facility] CPT-4: 45936 02/03/2016 ([id number]) 71606 EST. P ATIENT, LEVEL III Diagnosis: Generalized abdominal tenderness[ICD10: R10.817] Ale Carlos MD, [facility] CPT-4: 52155 01/26/2016 66815 EST. PATIENT, LEVEL IV Diagnosis: Other allergic rhinitis[ICD10: J30.89] Ruchi Carlos MD, [facility] CPT-4: 28927 01/21/2016 ([id number]) 69800 EST. P ATIENT, LEVEL IV Diagnosis: Essential (primary) hypertension[ICD10: I10] Diagnosis: Hypo-osmolality and hyponatremia[ICD10: E87.1] Ale Carlos MD, [facility] CPT-4: 46693 12/29/2015 ([id number]) 16776 EST. P ATIENT, LEVEL IV Diagnosis: Essential (primary) hypertension[ICD10: I10] Diagnosis: Mild cognitive impairment, so stated[ICD10: G31.84] Ale Carlos MD, [facility] CPT-4: 58261 09/02/2015 ([id number]) 47291 EST. P ATIENT, LEVEL IV Diagnosis: Mixed hyperlipidemia[ICD10: E78.2] Diagnosis: Generalized anxiety disorder[ICD10: F41.1] Diagnosis: Mild cognitive impairment, so stated[ICD10: G31.84] Diagnosis: Essential (primary) hypertension[ICD10: I10] Diagnosis: Encounter for immunization[ICD10: Z23] Ale Carlos MD, [facility] CPT-4: 59725 05/06/2015 ([id number]) 38272 EST. 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 P ATIENT, LEVEL IV Diagnosis: ESSENTIAL HYPERTENSION[ICD9: 401.9] Diagnosis: GENERALIZED ANXIETY DISEASE[ICD9: 300.02] Diagnosis: MILD COGNITIVE IMPAIREMT[ICD9: 331.83] Diagnosis: IRRITABLE COLON[ICD9: 564.1] Ale Carlos MD, [facility] CPT-4: 92136 12/04/2014 ([id number]) 50730 EST. P ATIENT, LEVEL IV Diagnosis: Abdominal pain[ICD9: 789.00] Diagnosis: GENERALIZED ANXIETY DISEASE[ICD9: 300.02] Diagnosis: Hyponatremia[ICD9: 276.1] Diagnosis: ESSENTIAL HYPERTENSION[ICD9: 401.9] Nelly Carlso MD, [facility] CPT-4: 71978 09/24/2014 ([id number]) 79833 EST. P ATIENT, LEVEL IV Diagnosis: ESSENTIAL HYPERTENSION[ICD9: 401.9] Diagnosis: Osteoarthritis[ICD9: 715.90] Diagnosis: Mild cognitive impairment with memory loss[ICD9: 331.83] Ale Carlos MD, [facility] CPT-4: 90711 09/09/2014 ([id number]) 13792 EST. P ATIENT, LEVEL III Diagnosis: GENERALIZED ANXIETY DISEASE[ICD9: 300.02] Diagnosis: Depression[ICD9: 311] Ale Carlos MD, [facility] CPT-4: 87305 07/26/2014 ([id number]) 03872 EST. P ATIENT, LEVEL IV Diagnosis: ESSENTIAL HYPERTENSION[ICD9: 401.9] Diagnosis: GENERALIZED ANXIETY DISEASE[ICD9: 300.02] Diagnosis: MILD COGNITIVE IMPAIREMT[ICD9: 331.83] Ale Carlos MD, [facility] CPT-4: 33391 07/10/2014 ([id number]) 37046 EST. P ATIENT, LEVEL IV Diagnosis: Dizziness[ICD9: 780.4] Diagnosis: GENERALIZED ANXIETY DISEASE[ICD9: 300.02] Diagnosis: Depression[ICD9: 311] Diagnosis: ESSENTIAL HYPERTENSION[ICD9: 401.9] Diagnosis: Urinary frequency[ICD9: 788.41] Ale Carlos MD, [facility] CPT-4: 85544 06/06/2014 ([id number]) 86679 EST. P ATIENT, LEVEL IV Diagnosis: ESSENTIAL HYPERTENSION[ICD9: 401.9] Diagnosis: GENERALIZED ANXIETY DISEASE[ICD9: 300.02] Diagnosis: Mild cognitive impairment with memory loss[ICD9: 331.83] Ale Carlos MD, [facility] CPT-4: 66593 05/29/2014 ([id number]) 07891 EST. P ATIENT, LEVEL IV Diagnosis: Pneumonia[ICD9: 486] Diagnosis: COUGH[ICD9: 786.2] Diagnosis: Hyponatremia[ICD9: 276.1] Diagnosis: ALLERGIC RHINITIS[ICD9: 477.9] Ale Carlos MD, [facility] CPT-4: 25075 05/20/2014 ([id number]) 47290 EST. P ATIENT, LEVEL III Diagnosis: ESSENTIAL HYPERTENSION[ICD9: 401.9] Diagnosis: Cough[ICD9: 786.2] Ale Carlos MD, [facility] CPT-4: 19742 03/25/2014 ([id number]) 41658 EST. P ATIENT, LEVEL III Diagnosis: COUGH[ICD9: 786.2] Diagnosis: ALLERGIC RHINITIS[ICD9: 477.9] Nelly Carlos MD, [facility] CPT- 4: 78422 02/08/2014 ([id number]) 50530 EST. P ATIENT, LEVEL III Diagnosis: ESSENTIAL HYPERTENSION[ICD9: 401.9] Diagnosis: Nasal congestion[ICD9: 478.19] Ale Carlos MD, [facility] CPT-4: 90853 12/24/2013 ([id number]) 26953 EST. P ATIENT, LEVEL III Diagnosis: Seasonal allergies[ICD9: 477.9] Diagnosis: Nasal congestion[ICD9: 478.19] Diagnosis: ABNORMAL LOSS OF WEIGHT[ICD9: 783.21] Ale Carlos MD, [facility] CPT-4: 91256 11/20/2013 ([id number]) 84999 EST. P ATIENT, LEVEL III Diagnosis: ABNORMAL LOSS OF WEIGHT[ICD9: 783.21] Diagnosis: MALAISE AND FATIGUE[ICD9: 780.79] Diagnosis: Hyponatremia[ICD9: 276.1] Nelly Carlos MD, [facility] CPT- 4: 47020 10/30/2013 ([id number]) 05484 EST. P ATIENT, LEVEL III Diagnosis: Acute maxillary sinusitis[ICD9: 461.0] Diagnosis: COUGH[ICD9: 786.2] Ale Carlos MD, [facility] CPT-4: 01885 10/08/2013 ([id number]) 78882 EST. P ATIENT, LEVEL IV Diagnosis: ESSENTIAL HYPERTENSION[SNOMED: 67226971] Diagnosis: GENERALIZED ANXIETY DISEASE[ICD9: 300.02] Diagnosis: OSTEOARTH NOS-UNSPEC[ICD9: 715.90] Diagnosis: Coronary artery disease[ICD9: 414.00] Ale Carlos MD, [facility] CPT-4: 85190 06/18/2013 ([id number]) 66407 EST. P ATIENT, LEVEL III Diagnosis: ESSENTIAL HYPERTENSION[SNOMED: 79192592] Ale Carlos MD, [facility] CPT-4: 27832 04/04/2013 ([id number]) 78392 EST. P ATIENT, LEVEL IV Diagnosis: ESSENTIAL HYPERTENSION[SNOMED: 79642153] Diagnosis: Leukopenia[ICD9: 288.50] Diagnosis: Encounter for long-term (current) use of other medications[ICD9: V58.69] Ale Carlos MD, [facility] CPT-4: 37803 02/19/2013 ([id number]) 91784 EST. P ATIENT, LEVEL IV Diagnosis: ESSENTIAL HYPERTENSION[SNOMED: 75820226] Diagnosis: MILD COGNITIVE IMPAIREMT[ICD9: 331.83] Ale Carlos MD, [facility] CPT-4: 29116 10/16/2012 ([id number]) 98867 EST. P ATIENT, LEVEL IV Diagnosis: ESSENTIAL HYPERTENSION[SNOMED: 55094554] Diagnosis: GENERALIZED ANXIETY DISEASE[ICD9: 300.02] Diagnosis: IRRITABLE COLON[ICD9: 564.1] Ale Carlos MD, [facility] CPT-4: 39493 03/20/2012 [id number] EST. PATIENT, LEVEL IV Diagnosis: ESSENTIAL HYPERTENSION[SNOMED: 71260124] Diagnosis: Osteoarthritis[ICD9: 715.90] Diagnosis: HYPERLIPIDEMIA[ICD9: 272.4] Ale Carlos MD, [facility] CPT-4: 19104 01/24/2012 22447 EST. PATIENT, LEVEL IV Diagnosis: ESSENTIAL HYPERTENSION[SNOMED: 09166991] Diagnosis: BPH W URINARY OBS/LUTS[ICD9: 600.01] Ale Carlos MD, [facility] CPT-4: 39454 12/20/2011 ([id number]) 26802 EST. P ATIENT, LEVEL III Diagnosis: Lump in the groin[ICD9: 789.30] Ale Carlos MD [facility] CPT-4: 06986 12/09/2011 ([id number]) 90810 EST. P ATIENT, LEVEL IV Diagnosis: ESSENTIAL HYPERTENSION[SNOMED: 92213779] Diagnosis: Mild cognitive impairment[ICD9: 331.83] Ale Carlos MD, [facility] CPT-4: 34306 08/25/2011 ([id number]) 90679 EST. P ATIENT, LEVEL IV Diagnosis: ESSENTIAL HYPERTENSION[SNOMED: 57512093] Diagnosis: GENERALIZED ANXIETY DISEASE[ICD9: 300.02] Diagnosis: MILD COGNITIVE IMPAIREMT[ICD9: 331.83] Diagnosis: IRRITABLE COLON[ICD9: 564.1] Ale Carlos MD, [facility] CPT-4: 56136 06/23/2011 ([id number]) 16232 EST. 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 PATIENT, LEVEL I Diagnosis: ESSENTIAL HYPERTENSION[SNOMED: 05021815] Ale Carlos MD, [facility] CPT-4: 71823 03/23/2011 56542 EST. PATIENT, LEVEL III Diagnosis: ESSENTIAL HYPERTENSION[SNOMED: 49446726] Diagnosis: Laceration of finger, index[ICD9: 883.0] Ale Carlos MD, [facility] CPT-4: 18090 03/08/2011 [id number] EST. PATIENT, LEVEL III Diagnosis: ESSENTIAL HYPERTENSION[SNOMED: 81591752] Diagnosis: Irritable bowel syndrome (IBS)[ICD9: 564.1] Ale Carlos MD, [facility] CPT-4: 12767 03/01/2011 74443 EST. PATIENT, LEVEL IV Diagnosis: Mild cognitive impairment with memory loss[ICD9: 331.83] Diagnosis: GENERALIZED ANXIETY DISEASE[ICD9: 300.02] Diagnosis: Bruising[ICD9: 924.9] Diagnosis: HYDROCELE[ICD9: 603.9] Ale Carlos MD, [facility] CPT-4: 59591 02/01/2011 69461 EST. PATIENT, LEVEL III Diagnosis: Testicular pain[ICD9: 608.9] Diagnosis: GENERALIZED ANXIETY DISEASE[ICD9: 300.02] Nelly Carlos MD, [facility] CPT-4: 24642 01/27/2011 07017 EST. PATIENT, LEVEL III Diagnosis: Arm bruise[ICD9: 923.9] Nelly Carlos MD, [facility] CPT-4: 17913 01/26/2011 OFFICE VISIT, NEW - LEVEL 4 Diagnosis: DIARRHEA[ICD9: 787.91] Diagnosis: Elevated liver function tests[ICD9: 790.6] Diagnosis: Abdominal discomfort[ICD9: 789.00] lAe Carlos MD, [facility] CPT- 4: 39243 01/06/2011 Plan of Care Planned Activity Notes C odes Status Date Visit Plan: Constipation - uncontro lled - [...] this regimen. 07/01/2017 Appointment: Ruchi Agee WPtel: [address] [place], [place] [address] [place] (30 min) Complex 07/01/2017 Appointment: Ruchi Agee WPtel: [phone] [facility] [place] (30 min) Complex 07/01/2017 Patient Education: Patient Medication Summary Completed 07/01/2017 Visit Plan: Neck and upper back reji n and gait unsteadiness - referral to Ulises castañeda for upper and low back pain and left arm pain and have gait eval. get Aspercreme from [employer] for your upper neck/upper back. Abdominal upset/cramping - lactaid pills - take before you drink milk or eat cheese or ice cream or yogurt use gas-ex one pill three times daily Chronic anxiety - stable - continue with current management. 06/21/2017 Appointment: Ale Carlos WPtel: [facility]0 [facility] (30 min) Complex 06/21/2017 Patient Education: [...] at home. 03/21/2017 Appointment: Ale Carlos WPtel: [facility]2 [facility] (30 min) Complex 03/21/2017 Patient Education: [...] allergy spray. 03/08/2017 Appointment: Nelly Keen WPtel: [facility]3 [phone] [place] (30 min) Complex 03/08/2017 Patient [...] flu shot 01/25/2017 Appointment: Ale Carlos WPtel: [facility] (30 min) Complex 01/25/2017 Patient Education: [...] not improving. 12/20/2016 Appointment: Ale Carlos WPtel: [facility]8 [facility] (30 min) Complex 12/20/2016 Patient Education: Patient Medication Summary Completed 12/20/2016 Patient Education: Hypertension Completed 12/20/2016 Appointment: Ruchi Agee WPtel: [facility]3 [facility] [place] [address] - Annual Wellness Visit 12/03/2016 Visit Plan: [...] acutely worsen. 11/25/2016 Appointment: Ale Carlos WPtel: [facility]7 [facility] (15 min) Moderate 11/25/2016 Patient Education: [...] thrush. 11/18/2016 Appointment: Ale Carlos WPtel: [address] [facility] (15 min) Moderate 11/18/2016 Patient Education: [...] and namenda. labs to be done from [facility] 08/23/2016 [facility]ment: [facility] ([facility] 08/23/2016 Patient Education: [...] home. 04/26/2016 Appointment: [facility] ([facility]) Complex 04/26/2016 Patient Education: Patient Medication Summary Completed 04/26/2016 Visit Plan: Joint effusion - recomm ended drainage and referral to orthopedic surgeon for surgical debridement of bursa 02/17/2016 Appointment: [facility]el[phone] ([facility]) Complex 02/17/2016 Patient Education: Patient Medication Summary Completed 02/17/2016 Visit Plan: Bursitis-right elbow-dr healy today in the office- increase anti inflammatories for the next 5 days as directed-call if symptoms do not resolve, swelling returns or new symptoms develop-patient verbalized understanding of plan. 02/09/2016 Appointment: Nelly Keen WPtel: [address] [place], [place] [phone] (30 min) Complex 02/09/2016 Patient Education: Patient Medication Summary Completed 02/09/2016 Patient Education: Patient Medication Summary Completed 02/05/2016 Care Plan: Metabolic Pending 02/05/2016 Visit Plan: Bursitis-right elbow-dr healy today in the office- increase anti inflammatories for the next 5 days as directed-call if symptoms do not resolve, swelling returns or new symptoms develop-patient verbalized understanding of plan. 02/03/2016 Appointment: Nelly Keen WPtel: [facility]5 [phone] (30 min) Complex 02/03/2016 Patient Education: Patient Medication Summary Completed 02/03/2016 Patient Education: Patient Medication Summary Completed 01/30/2016 Care Plan: Metabolic Due on Pending 01/30/2016 Visit Plan: Abdominal pain - nausea - Pt to have IV fluids at hospital 01/26/2016 Appointment: Ale Carlos WPtel: [address] [place], [place] [phone] (30 min) Complex 01/26/2016 Patient [...] allergy spray. 01/21/2016 Appointment: Nelly Keen WPtel: [facility]4 [phone] (30 min) Complex 01/21/2016 Patient Education: [...] of treatment. 09/02/2015 Appointment: Ale Carlos WPtel: [facility] (15 min) Moderate 09/02/2015 Patient Education: [...] today 05/06/2015 Appointment: Ale [facility]Ptel[phone] (15 min) Moderate 05/06/2015 Patient Education: Patient Medication Summary Completed 05/06/2015 Patient Education: Hypertension Completed 05/06/2015 Care Plan: COMPLETE CBC AUTOMATED LOINC : 60826-1 Ordered 05/06/2015 Visit Plan: Hypertension - well [...] No change in current medications. 03/05/2015 Appointment: Ael Carlos WPtel: [facility]5 [facility] (30 min) Complex 03/05/2015 Patient Education: [...] -has improved. 12/04/2014 Appointment: Ale [facility]Ptel[facility] Follow up 12/04/2014 Patient Education: Patient [...] Plan: CT ABD & PELV 1/> [facility] : 85803-4 Ordered 09/24/2014 Visit Plan: Hypertension - well [...] THAT HE SHOULD NOT BE DRIVING TO [place] 07/26/2014 Appointment: Sick 07/26/2014 Appointment: Sick 07/26/2014 [...] medication list. 07/10/2014 Appointment: Ale Carlos WPtel: [facility]5 [facility] Follow up 07/10/2014 Patient Education: Patient Medication Summary Completed 07/10/2014 Patient Education: Hypertension Completed 07/10/2014 Appointment: Ale Carlos WPtel: [address] [place], [place] [phone] Follow up 06/20/2014 Appointment: Ale Carlos WPtel: [address] [place], [place] [phone] Follow up 06/10/2014 Visit Plan: Anxiety and [...] in blood pressure readings at home. Urinary qxsvzjgsa-OYV-sqsxtc flomax to bedtime Dizziness-stop hydrocodone and ativan [...] 3 WEEKS 05/29/2014 Appointment: Ale Carlos WPtel: [facility] [facility] 05/29/2014 Patient Education: Patient Medication Summary Completed 05/29/2014 Patient Education: Hypertension Completed 05/29/2014 Appointment: Ale Carlos [facility]Ptel: [phone] [facility] Lab Draw 05/23/2014 Patient Education: Patient Medication Summary Completed 05/23/2014 Visit Plan: Pneumonia - Pt has been diagnosed with pneumonia by physical exam. A chest xray has been ordered as have antibiotics. The pt is aware of the diagnosis and the need for acute treatment of this illness. A zjagtjws-ahoix-lfxkesc flonase nasal spray Hyponatremia-increase gatorade as directed [...] for acute treatment of this illness. A zkuqqzcm-krpgw-mwhsxcs flonase nasal spray Hyponatremia-increase gatorade as directed 05/20/2014 Patient Education: Patient Medication Summary Completed 05/20/2014 Appointment: Ale [facility]Ptel: [phone] [place] Injection 03/26/2014 Patient Education: Patient [...] Merlos. 03/25/2014 Appointment: Ale [facility]Ptel[facility] Follow up 03/25/2014 Patient Education: Patient Medication Summary Completed 03/25/2014 Patient Education: Hypertension Completed 03/25/2014 Visit Plan: Jljyk-umoegkkiq-juialig laryngeal reflux-RX for protonix (patient is on [...] at home. 12/24/2013 Appointment: Ale Carlos WPtel: [address] [place], [place] [phone] Follow up 12/24/2013 Patient Education: Patient Medication [...] portion size. 11/20/2013 Appointment: Ale Carlos WPtel: [address] [place], [place] [phone] Follow up 11/20/2013 Patient Education: Patient Medication Summary Completed 11/20/2013 Appointment: Ale Carlos WPtel: [address] [place], [place] [phone] Follow up 11/06/2013 Visit Plan: Weight loss-increase po rtions-add snacks in the morning and afternoon-follow up in 3 weeks for weight check Low sodium-check labs-restart gatorade Oybwhjo-wgchnz-rgxxa labs and UA 10/30/2013 Patient Education: Patient Medication Summary Completed 10/30/2013 Appointment: Ale Carlos WPtel: [address] [place], [place] [phone] [place] Follow up 10/16/2013 Visit Plan: Sinusitis [...] Dr. Merlos. 06/18/2013 Appointment: Ale Carlos WPtel: [facility] [place] Follow up 06/18/2013 Patient Education: [...] acute concerns. 04/04/2013 Appointment: Ale Carlos WPtel: [facility] [place] Follow up 04/04/2013 Patient Education: [...] report. 02/19/2013 Appointment: Ale Carlos WPtel: [phone] [facility] Follow up 02/19/2013 Patient Education: Patient [...] loss. 10/16/2012 Appointment: Ale Carlos WPtel: [phone] [facility] Follow up 10/16/2012 Patient Education: Patient [...] colon return. 06/19/2012 Appointment: Ale Carlos WPtel: [facility]5 [facility] Follow up 06/19/2012 Patient Education: Patient [...] the bentyl. 03/20/2012 Appointment: Ale Carlos WPtel: [facility]5 [facility] Follow up 03/20/2012 Patient Education: Patient Medication Summary Completed 03/20/2012 Patient Education: High Blood Pressure: Essential Hypertension Completed 03/20/2012 Appointment: Ale Carlos WPtel: [facility]5 [facility] Follow up 02/22/2012 Visit Plan: Hypertension [...] as needed. 01/24/2012 Appointment: Ale Carlos WPtel: [facility] Follow up 01/24/2012 Patient Education: Patient [...] have the biopsy until okayed by his herbicide sprayer.. I anticipate it will be at least 4-6 months before he can be off of the plavix and aspirin for additonal procedures unless it is of extreme urgency. 12/20/2011 Appointment: Ale Carlos WPtel: [facility] [place] Follow up 12/20/2011 Patient Education: Patient Medication Summary Completed 12/20/2011 Patient Education: High Blood Pressure: Essential Hypertension Completed 12/20/2011 Appointment: Ale Carlos WPtel: [facility] [place] Other 12/13/2011 Visit Plan: Pain in groin post hear t cath with increased discomfort and increased size - will order an ultrasound for today. 12/09/2011 Appointment: Ale Carlos WPtel: [facility] Other 12/09/2011 Patient Education: Patient Medication [...] either medication. 08/25/2011 Appointment: Ale Carlos WPtel: [address] [place] [address] Other 08/25/2011 Patient Education: Patient Medication Summary [...] low doses. 06/23/2011 Appointment: Ale Carlos WPtel: [address] [place], [place] [phone] [place] Other 06/23/2011 Patient Education: Patient Medication Summary Completed 06/23/2011 Patient Education: High Blood Pressure: Essential Hypertension Completed 06/23/2011 Appointment: Ale Carlos WPtel: [facility]9 [facility] Other 04/26/2011 Visit Plan: Hypertension - well [...] seeds, etc. 04/19/2011 Appointment: Ale Carlos WPtel: [facility]5 [facility] Other 04/19/2011 Patient Education: Patient Medication Summary Completed 04/19/2011 Patient Education: High Blood Pressure: Essential Hypertension Completed 04/19/2011 Patient Education: Diverticulosis Diet Completed 04/19/2011 Appointment: Nelly Keen WPtel: [facility]5 [phone] Other 03/23/2011 Patient Education: Patient Medication [...] arise. 03/08/2011 Appointment: Ale Carlos WPtel: [phone] [facility] Other 03/08/2011 Patient Education: Patient Medication [...] day. 03/01/2011 Appointment: Ale Carlos WPtel: [address] [facility] [place] Other 03/01/2011 Patient Education: Patient Medication Summary Completed 03/01/2011 Patient Education: High Blood Pressure: Essential Hypertension Completed 03/01/2011 Appointment: [facility]el[phone] [place] Injection 02/25/2011 Patient Education: Patient Medication Summary Completed 02/25/2011 Appointment: Ale Carlos [facility]Ptel: [facility] [facility] [place] Injection 02/16/2011 Patient Education: Patient Medication Summary Completed 02/16/2011 Appointment: Ale Carlos WPtel: [facility]5 [facility] [place] Injection 02/09/2011 Patient Education: Patient Medication Summary Completed 02/09/2011 Appointment: Ale Carlos WPtel: [facility] [place] Follow up 02/02/2011 Visit Plan: [...] Kenji Dash in [place]. Upon our conversation lomo-etc-nmbsq, Kenji vocalized concerns for his Dad's memory. He stated that he has noticed his father not being as quick in his cognitive functioning, he has noticed some concerns with driving as well. He states that he will discuss these concerns with his parents and other siblings. 02/01/2011 Appointment: Ale Carlos WPtel: [facility]5 [facility] Other 02/01/2011 Patient Education: Patient Medication [...] as needed. 01/27/2011 Appointment: Ale Carlos WPtel: [address] [place], [place] [phone] New Patient 01/27/2011 Patient Education: Patient Medication Summary Completed 01/27/2011 Visit Plan: Bruising/hematoma left arm-discussed natural and expected course of this diagnosis and to alert me if symptoms do not follow expected course or if any worse, Continue with ice/heat as needed for disc omfort. Call for any concerns. 01/26/2011 Appointment: Nelly Keen WPtel: [facility]5 [facility] Other 01/26/2011 Patient Education: Patient Medication Summary [...] course. 01/15/2011 Appointment: Nelly Keen WPtel: [phone] [facility] [place] [address] Other 01/15/2011 Patient Education: Patient Medication Summary [...] diet. 01/06/2011 Appointment: Ale Carlos [facility]Ptel: [phone] [facility] Patient 01/06/2011 Patient Education: Patient Medication Summary Completed 01/06/2011 Instructions Comment . Pneumonia - Pt has been diagnosed with pneumonia by physical exam. A chest xray has been ordered as have antibiotics. The pt is aware of the diagnosis and the need for acute treatment of this illness. Wyyvuujts-ilozv-xqcncqs flonase nasal spray Hyponatremia-increase gatorade as directed [...] need for acute treatment of this illness. Ictrjxndm-krdxz-inpoufl flonase nasal spray Hyponatremia-increase gatorade as directed [...] for weight check Low sodium-check labs-restart gatorade Ajqcnca-azkpmy-phjvg labs and UA . Hypertension and C [...] have the biopsy until okayed by his herbicide sprayer.. I anticipate it will be at least [...] a prescriptio n of generic zyrtec to [facility] - if it is expensive get the [...] symptoms not improved on this regimen. . Hypertension - [facility] ontrolled - the [...] and namenda. labs to be done from [facility] call the office in 2 weeks [...] twice HTN-well controlled-no change in treatment . Uvqcd-qtjzjmtyj-tx spect laryngeal reflux-RX for protonix (patient is [...] IN THE EVENING OF 01/15/11 Appointment in [address] [place] [address] Carlos. Recommend Lactobacillus 1 orally [...] Kenji Dash in [place]. Upon our conversation ywzf-ehl-axoyx, Kenji vocalized concerns for his Dad's memory. He stated that he has noticed his father not being as quick in his cognitive functioning, he has noticed some concerns with driving as well. He states that he will discuss these concerns with his parents and other siblings. stop losartan - [facility] blood pressure and heart rate twice [...] THAT HE SHOULD NOT BE DRIVING TO [place] Pt is to try 1/2 pil l [...] in blood pressure readings at home. Urinary toxqqexmk-WTP-azjfnd flomax to bedtime Dizziness-stop hydrocodone and ativan [...]
--- OUTSIDE RECORDS SUMMARY | 2019-07-16 07:44 | XMS REPORT | CCD ---
Author Author Kenneth Carlos Organization Ale Carlos MD, [facility] Address [address] [place] [address] Phone Care Team Providers Care Credit Administration Specialist Name Role Phone Ale Carlos PP Unavailable CCM Unavailable Summary Purpose Interface Exchange Insurance Providers Payer name Policy type / Coverage type Covered democrat ID Effective Begin Date Effective End Date WPS Medicare Part B Medicare Part B [id number] Unknown Unknown [facility] icare Part B [id number] Unknown Unk nown Family history Runs in the family Diagnosis Age At Onset No Family Disease Entered N/A Mother Diagnosis Age At Onset No Family Disease Entered N/A Father Diagnosis Age At Onset Heart disease Unknown Social History Social History Element Codes Description Effective Dates Number of children Unknown 3 ([place], [place], [place]) 10/14/19 18 Living arrangements Unknown House 01/11/2011 Number of adults in household Unknown 2 01/11/2011 Education level Unknown Post-Graduate PHD in chemistry 01/11/2011 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 Unknown Has never used illegal drugs 011 Allergies, Adverse Reactions, Alerts Substance Reaction Codes Entered Date Inactivated Date Status * NO KNOWN FOOD NAYE RGIES Unknown 04/19/2011 No Inactive Date Active Toradol RxNorm: 36048 03/05/2011 No Inactive Date Active Lisinopril cough, [...] Date Stop Date Sta tus Fill Instructions Namenda 10 mg tablet RxNorm: 674424 Tablet(s) TAKE 1 TABLET BY MOUTH TWICE D AILY. 08/18/2018 No Stop Date Active clopidogrel 75 mg ta blet RxNorm: 560533 TAKE 1 TABLET BY MOUT H EVERY DAY 08/14/2018 02/09/2019 Ac tive amlodipine 10 mg tablet RxNorm: 241250 TAKE 1 TABLET BY MOUTH EVERY DAY 07/14/2018 07/23/2018 In active clopidogrel 75 mg ta blet RxNorm: 231589 TAKE 1 TABLET BY MOUT H EVERY DAY 06/23/2018 12/19/2018 Ac tive Zantac 150 mg tablet RxNorm: 907378 1 TABLET(S) PO QAM 06/12/2018 01/07/2019 Active lisinopril 20 mg tablet RxNorm: 453192 TAKE 1 TABLET DAILY 06/05/2018 07/23/2018 Inactive triamterene 37.5 mg- hydrochlorothiazide 25 mg tablet RxNorm: 397976 1 Tablet(s) PO daily 05/18/2018 12/13/2018 Active cetirizine 10 mg tablet RxNorm: 9885879 TABLET(S) 1 TABLET(S) PO DAILY TO TAKE I NSTEAD OF THE CLARITIN 03/13/2018 02/05/2019 Active amlodipine 10 mg tablet RxNorm: 194054 TAKE 1 TABLET BY MOUTH EVERY DAY 03/09/2018 07/23/2018 In active fluticasone 50 mcg/a ctuation nasal spray,suspension RxNorm: 0719994 1 [place] NASAL BID 02/08/2018 No Stop Date Active fluticasone 50 mcg/a ctuation nasal spray,suspension RxNorm: 5766140 1 [place] NASAL BID 02/08/2018 02/07/2018 Inactive Trulance 3 mg tablet RxNorm: 1422399 1 Tablet(s) PO QAM 01/19/2018 08/16/2018 Inactive cefdinir 300 mg capsule RxNorm: 020403 1 Capsule(s) PO BID 12/28/2017 01/03/2018 Inactive cefdinir 300 mg capsule RxNorm: 957129 1 Capsule(s) PO BID 12/28/2017 12/27/2017 Inactive clopidogrel 75 mg ta blet RxNorm: 896803 TAKE 1 TABLET BY MOUT H EVERY DAY 12/26/2017 06/22/2018 In active Namenda 10 mg tablet RxNorm: 906825 Tablet(s) TAKE 1 TABLET BY MOUTH TWICE D AILY. 12/15/2017 08/17/2018 Inactive Robinul 1 mg tablet RxNorm: 227368 1/2 Tablet(s) PO AC & HS 12/12/2017 12/14/2017 Inactive Robinul 1 mg tablet RxNorm: 518381 1/2 Tablet(s) PO AC & HS 12/12/2017 12/11/2017 Inactive donepezil 10 mg tablet RxNorm: 854448 1 TABLET(S) PO DAILY TAKE 1 TABLET BY [facility] ONCE DAILY 12/08/2017 12/11/2017 Inactive Patient requests 90 days supply lisinopril 20 mg tablet RxNorm: 251685 TAKE 1 TABLET DAILY 12/05/2017 01/11/2018 Inactive Cymbalta 30 mg capsu le,delayed release RxNorm: 334811 1 Capsule(s) PO daily 12/05/2017 12/04/2017 In active Cymbalta 30 mg capsu le,delayed release RxNorm: 918766 1 Capsule(s) PO daily 12/05/2017 12/05/2017 In active Trulance 3 mg tablet RxNorm: 0638150 1 Tablet(s) PO daily 11/14/2017 12/13/2017 Inactive Linzess 145 mcg capsule RxNorm: 3122255 1 Capsule(s) PO daily 10/28/2017 12/14/2017 Inactive Zantac 150 mg tablet RxNorm: 080562 1 Tablet(s) PO QAM 10/13/2017 01/04/2018 Inactive mirtazapine 15 mg ta blet RxNorm: 609704 TAKE ONE TABLET BY [facility] EVERY DAY 09/29/2017 09/23/2018 Ac tive Mobic 15 mg tablet RxNorm: 577974 1/2 TABLET(S) DAILY 09/26/2017 12/19/2017 Inactive lisinopril 20 mg tablet RxNorm: 306353 1/2 Tablet(s) daily 09/13/2017 01/12/2018 Inactive amlodipine 10 mg tablet RxNorm: 235780 TAKE 1 TABLET BY MOUTH EVERY DAY 09/09/2017 08/07/2018 In active Reglan 5 mg tablet RxNorm: 084296 1/2 Tablet(s) PO TID may increase up to a full pill three times daily as needed for poor GI motility 07/20/2017 09/17/2017 Inactive Protonix 40 mg table t,delayed release RxNorm: 324117 1 Tablet(s) PO daily 07/04/2017 01/29/2018 In active clopidogrel 75 mg ta blet RxNorm: 875660 TAKE 1 TABLET BY MOUT H EVERY DAY 06/20/2017 12/16/2017 In active cetirizine 10 mg tablet RxNorm: 7582359 TABLET(S) 1 TABLET(S) PO DAILY TO TAKE I AGGIE OF THE CLARITIN 06/06/2017 03/12/2018 Inactive lisinopril 20 mg tablet RxNorm: 037051 TAKE 1 TABLET DAILY 05/30/2017 09/12/2017 Inactive Mobic 15 mg tablet RxNorm: 280155 1/2 TABLET(S) DAILY 03/21/2017 09/16/2017 Inactive donepezil 10 mg tablet RxNorm: 873550 1 Tablet(s) PO daily TAKE 1 TABLET BY MO [facility] ONCE DAILY 02/28/2017 11/24/2017 Inactive Patient requests 90 days supply Requip 0.25 mg tablet RxNorm: 191628 1 TABLET(S) PO BID 01/24/2017 01/04/2018 Inactive Patient requests 90 days supply clopidogrel 75 mg ta blet RxNorm: 758879 TAKE 1 TABLET BY MOUT H EVERY DAY 12/23/2016 06/19/2017 In active lisinopril 20 mg tablet RxNorm: 565574 TAKE 1 TABLET DAILY 11/26/2016 05/24/2017 Inactive Kenalog 40 mg/mL hugo pension for injection RxNorm: 5764862 Milliliter(s) Inj 11/25/2016 11/25/2016 In active cefdinir 300 mg capsule RxNorm: 263670 1 Capsule(s) PO BID 11/23/2016 11/27/2016 Inactive cefdinir 300 mg capsule RxNorm: 325465 1 Capsule(s) PO BID 11/23/2016 11/22/2016 Inactive nystatin 100,000 uni t/mL oral suspension RxNorm: 036089 5 Milliliter(s) PO QI D 11/18/2016 11/27/2016 In active azithromycin 250 mg tablet RxNorm: 453674 1 Tablet(s) PO UD 2 p ills on day #1 then one pill daily x 4 more days 11/18/2016 11/22/2016 Inactive Mobic 15 mg tablet RxNorm: 617195 1/2 TABLET(S) DAILY 10/28/2016 03/20/2017 Inactive citalopram 10 mg tablet RxNorm: 602833 TAKE 1 TABLET BY MOUTH EVERY DAY 10/07/2016 03/05/2017 In active Patient requests 90 days supply mirtazapine 15 mg ta blet RxNorm: 758193 TAKE ONE TABLET BY [facility] EVERY DAY 10/06/2016 09/28/2017 In active mirtazapine 15 mg ta blet RxNorm: 379902 TAKE ONE TABLET BY MO [facility] EVERY DAY 10/05/2016 10/05/2016 In active Patient requests 90 days supply amlodipine 10 mg tablet RxNorm: 092640 TAKE 1 TABLET BY MOUTH EVERY DAY 09/14/2016 01/24/2017 In active clopidogrel 75 mg ta blet RxNorm: 583392 TAKE 1 TABLET BY MOUT H EVERY DAY 06/28/2016 12/22/2016 In active lisinopril 20 mg tablet RxNorm: 307289 TAKE 1 TABLET DAILY 05/31/2016 11/25/2016 Inactive donepezil 10 mg tablet RxNorm: 165446 TAKE 1 TABLET BY MOUTH ONCE DAILY 05/11/2016 11/06/2016 In active donepezil 10 mg tablet RxNorm: 089191 TAKE 1 TABLET BY MOUTH ONCE DAILY 04/26/2016 02/28/2017 In active Mobic 15 mg tablet RxNorm: 361960 1/2 Tablet(s) daily 04/19/2016 10/15/2016 Inactive citalopram 10 mg tablet RxNorm: 124066 TAKE 1 TABLET BY MOUTH EVERY DAY 04/06/2016 04/25/2016 In active cetirizine 10 mg tablet RxNorm: 8845230 Tablet(s) 1 TABLET(S) PO DAILY TO TAKE I NSTEAD OF THE CLARITIN 03/30/2016 02/22/2017 Inactive amlodipine 10 mg tablet RxNorm: 447599 TAKE 1 TABLET BY MOUTH EVERY DAY 03/08/2016 01/24/2017 In active amlodipine 10 mg tablet RxNorm: 121680 1 Tablet(s) PO daily TAKE 1 TABLET BY MO [facility] ONCE DAILY 03/03/2016 03/07/2016 Inactive Requip 0.25 mg tablet RxNorm: 298611 1 Tablet(s) PO BID 03/03/2016 09/13/2016 Inactive Mobic 15 mg tablet RxNorm: 629894 1 Tablet(s) daily not refilled on 17t a 02/23/2016 04/18/2016 In active cetirizine 10 mg tablet RxNorm: 1326847 1 TABLET(S) PO DAILY TO TAKE INSTEAD OF THE CLARITIN 02/19/2016 03/19/2016 Inactive lisinopril 20 mg tablet RxNorm: 889824 TAKE 1 TABLET DAILY 02/18/2016 05/17/2016 Inactive Namenda 10 mg tablet RxNorm: 931635 Tablet(s) TAKE 1 TABLET BY MOUTH TWICE D AILY. 02/17/2016 12/14/2017 Inactive lisinopril 20 mg tablet RxNorm: 978199 TAKE 1 TABLET DAILY 01/23/2016 01/24/2017 Inactive cetirizine 10 mg tablet RxNorm: 9178510 1 Tablet(s) PO daily to take instead of the claritin 01/21/2016 02/18/2016 Inactive amlodipine 10 mg tablet RxNorm: 493879 1 Tablet(s) PO daily TAKE 1 TABLET BY MO U[facility] ONCE DAILY 12/02/2015 03/02/2016 Inactive clopidogrel 75 mg ta blet RxNorm: 907593 TAKE 1 TABLET BY MOUT H EVERY DAY 11/25/2015 05/22/2016 In active Mobic 15 mg tablet RxNorm: 905046 TAKE(1/2) TABLET DAILY. 11/17/2015 02/22/2016 Inactive lisinopril 20 mg tablet RxNorm: 499741 TAKE 1 TABLET DAILY 11/17/2015 01/15/2016 Inactive Mobic 15 mg tablet RxNorm: 063583 1/2 Tablet(s) PO daily TAKE (1/2) TABLET DAILY. 11/12/2015 11/16/2015 Inactive citalopram 10 mg tablet RxNorm: 096300 TAKE 1 TABLET BY MOUTH EVERY DAY 10/27/2015 04/05/2016 In active Requip 0.25 mg tablet RxNorm: 469087 1 Tablet(s) PO BID 10/15/2015 02/11/2016 Inactive Requip 0.25 mg tablet RxNorm: 234753 1 Tablet(s) PO BID 10/15/2015 10/14/2015 Inactive mirtazapine 15 mg ta blet RxNorm: 146820 1 Tablet(s) PO daily 09/08/2015 10/01/2016 Inactive donepezil 10 mg tablet RxNorm: 052150 TAKE 1 TABLET DAILY 09/01/2015 04/25/2016 Inactive amlodipine 10 mg tablet RxNorm: 558698 1 Tablet(s) PO daily TAKE 1 TABLET BY [facility] ONCE DAILY 08/18/2015 12/01/2015 Inactive clopidogrel 75 mg ta blet RxNorm: 700041 1 Tablet(s) PO daily TAKE 1 TABLET DAILY 05/20/2015 11/24/2015 In active Mobic 15 mg tablet RxNorm: 487327 Tablet(s) TAKE (1/2) TABLET DAILY. 04/23/2015 10/19/2015 In active lisinopril 20 mg tablet RxNorm: 509942 TAKE 1 TABLET DAILY 04/22/2015 11/16/2015 Inactive Mobic 15 mg tablet RxNorm: 002890 TAKE (1/2) TABLET DAILY. 04/22/2015 04/22/2015 Inactive sulfamethoxazole 400 mg-trimethoprim 80 mg tablet RxNorm: 225852 1/2 Tablet(s) PO nancy y 03/11/2015 04/09/2015 Inactive Vesicare 5 mg tablet RxNorm: 678252 1 Tablet(s) PO 03/11/2015 05/09/2015 Inactive Protonix 40 mg table t,delayed release RxNorm: 502940 1 Tablet(s) PO BID 03/05/2015 09/30/2015 In active ok to change from [address] Archana rivera clopidogrel 75 mg ta blet RxNorm: 706383 1 Tablet(s) PO daily TAKE 1 TABLET DAILY 02/20/2015 05/19/2015 In active Namenda 10 mg tablet RxNorm: 960420 Tablet(s) TAKE 1 TABLET BY MOUTH TWICE D AILY. 01/22/2015 02/16/2016 Inactive amlodipine 10 mg tablet RxNorm: 677235 TAKE 1 TABLET BY MOUTH ONCE DAILY 01/14/2015 08/17/2015 In active donepezil 10 mg tablet RxNorm: 583441 TAKE 1 TABLET DAILY 01/06/2015 08/31/2015 Inactive Levsin 0.125 mg tablet RxNorm: 7418691 1 Tablet(s) PO QID as needed FOR ABD REJI N 11/05/2014 12/03/2014 In active Mobic 15 mg tablet RxNorm: 808079 1/2 Tablet(s) daily TAKE (1/2) TABLET DA MOIZ. 10/01/2014 04/21/2015 Inactive ciprofloxacin 500 mg tablet RxNorm: 001129 1 Tablet(s) PO BID 09/27/2014 10/01/2014 Inactive Flagyl 500 mg tablet RxNorm: 465442 1 Tablet(s) PO TID 09/27/2014 10/03/2014 Inactive take probiotic BID donepezil 10 mg tablet RxNorm: 977997 1/2 Tablet(s) PO BID 09/24/2014 01/05/2015 Inactive lisinopril 20 mg tablet RxNorm: 850932 TAKE 1 TABLET DAILY 09/05/2014 04/21/2015 Inactive amlodipine 10 mg tablet RxNorm: 588902 1 Tablet(s) PO daily 09/02/2014 12/30/2014 Inactive mirtazapine 15 mg ta blet RxNorm: 373252 1 Tablet(s) PO daily 08/28/2014 09/07/2015 Inactive donepezil 10 mg tablet RxNorm: 291390 1 Tablet(s) PO daily 08/28/2014 09/23/2014 Inactive citalopram 10 mg tablet RxNorm: 925847 1 Tablet(s) PO daily 08/28/2014 03/25/2015 Inactive citalopram 10 mg tablet RxNorm: 515718 1 Tablet(s) PO daily 08/07/2014 08/27/2014 Inactive citalopram 10 mg tablet RxNorm: 673676 1 Tablet(s) PO daily 08/07/2014 08/06/2014 Inactive Flagyl 500 mg tablet RxNorm: 128618 1 Tablet(s) PO TID 08/02/2014 08/01/2014 Inactive take probiotic BID Flagyl 500 mg tablet RxNorm: 344554 1 Tablet(s) PO TID 08/02/2014 08/08/2014 Inactive take probiotic BID tamsulosin ER 0.4 mg capsule,extended release 24 hr RxNorm: 330079 1 Capsule(s) PO QHS 06/06/2014 03/10/2015 Inactive TAKE AT BEDTIME escitalopram 5 mg ta blet RxNorm: 634492 1 Tablet(s) PO QPM 06/06/2014 08/06/2014 Inactive doxycycline hyclate 100 mg tablet RxNorm: 674625 1 Tablet(s) PO BID 05/31/2014 05/30/2014 Inactive doxycycline hyclate 100 mg tablet RxNorm: 568438 1 Tablet(s) PO BID 05/31/2014 06/06/2014 Inactive please deliver if not picked by 3pm Aricept 5 mg tablet RxNorm: 830973 1 Tablet(s) PO BID 05/29/2014 08/27/2014 Inactive losartan 50 mg tablet RxNorm: 442424 1/2 Tablet(s) PO daily 05/29/2014 12/28/2015 Inactive clopidogrel 75 mg ta blet RxNorm: 967118 1 Tablet(s) PO daily 05/27/2014 05/26/2014 Inactive Mobic 15 mg tablet RxNorm: 951148 TAKE (1/2) TABLET DAILY. 05/27/2014 09/30/2014 Inactive clopidogrel 75 mg ta blet RxNorm: 607461 TAKE 1 TABLET DAILY 05/27/2014 02/19/2015 Inactive Mobic 15 mg tablet RxNorm: 621929 1/2 Tablet(s) PO daily TAKE (1/2) TABLET DAILY. 05/27/2014 05/26/2014 Inactive prednisone 20 mg tablet RxNorm: 760429 1 Tablet(s) PO BID 05/21/2014 05/25/2014 Inactive albuterol sulfate 2. 5 mg/0.5 mL solution for nebulization RxNorm: 532679 1 inhale INH Q4H as needed 05/21/2014 09/01/2015 Inactive prednisone 20 mg tablet RxNorm: 102058 1 Tablet(s) PO BID 05/21/2014 05/20/2014 Inactive cefdinir 300 mg capsule RxNorm: 698904 1 Capsule(s) PO BID 05/20/2014 05/26/2014 Inactive Zithromax Z-Dequan 250 mg tablet RxNorm: 355856 1 Tablet(s) PO UD 05/20/2014 05/24/2014 Inactive zpack lorazepam 0.5 mg tablet RxNorm: 010402 1/2 to 1 Tablet(s) PO Q8 PRN as needed 04/30/2014 06/05/2014 In active Namenda 10 mg tablet RxNorm: 802489 TAKE 1 TABLET BY MOUTH TWICE DAILY. 04/15/2014 01/21/2015 In active Namenda 10 mg tablet RxNorm: 313690 1 Tablet(s) PO BID 04/15/2014 04/14/2014 Inactive losartan 50 mg tablet RxNorm: 183764 1 Tablet(s) PO daily 03/25/2014 05/28/2014 Inactive Protonix 40 mg table t,delayed release RxNorm: 246267 1 Tablet(s) PO QPM 03/21/2014 06/18/2014 In active ok to change from [address] Archana rivera fluticasone 50 mcg/a ctuation nasal spray,suspension RxNorm: 837874 1 [place] NASAL BID 03/04/2014 09/29/2014 Inactive Protonix 20 mg table t,delayed release RxNorm: 722766 1 Tablet(s) PO QPM 02/08/2014 03/20/2014 In active fluticasone 50 mcg/a ctuation nasal spray,suspension RxNorm: 198327 1 [place] NASAL BID 01/30/2014 03/03/2014 Inactive fluticasone 50 mcg/a ctuation nasal spray,suspension RxNorm: 957620 1 [place] NASAL BID 12/24/2013 01/29/2014 Inactive fluticasone 50 mcg/a ctuation nasal spray,suspension RxNorm: 388647 1 [place] NASAL BID 11/20/2013 12/23/2013 Inactive doxycycline hyclate 100 mg capsule RxNorm: 5277299 1 Capsule(s) PO BID 10/08/2013 10/17/2013 In active doxycycline hyclate 100 mg capsule RxNorm: 3598315 capsule oral 10/08/2013 10/29/2013 Inactive fluticasone 50 mcg/a ctuation nasal spray,suspension RxNorm: 950038 spray,suspension nasl 10/08/2013 11/19/2013 Inactive fluticasone 50 mcg/a ctuation nasal spray,suspension RxNorm: 952996 1 [place] NASAL BID Nasal spray- use twice daily, one spray per nostril twice daily, after 30 minutes, rinse out nose with saline spray. 10/08/2013 10/29/2013 Inactive mirtazapine 7.5 mg t ablet RxNorm: 124919 1/2 Tablet(s) PO daily 08/30/2013 08/27/2014 Inactive lorazepam 0.5 mg tablet RxNorm: 480759 1/2 Tablet(s) PO Q8 PRN 08/21/2013 04/29/2014 Inactive Aricept 5 mg tablet RxNorm: 249292 Tablet(s) PO TAKE 1 TABLET DAILY 08/21/2013 05/28/2014 In active Plavix 75 mg tablet RxNorm: 045828 Tablet(s) PO TAKE 1 TABLET DAILY 05/24/2013 12/04/2014 In active clopidogrel 75 mg ta blet RxNorm: 447143 tablet oral 05/24/2013 05/26/2014 Inactive Plavix 75 mg tablet RxNorm: 778026 1 Tablet(s) PO daily 05/23/2013 05/23/2013 Inactive meloxicam 15 mg tablet RxNorm: 407335 tablet oral 04/26/2013 03/25/2014 Inactive Mobic 15 mg tablet RxNorm: 787977 Tablet(s) PO TAKE (1/2) TABLET DAILY. 04/26/2013 05/26/2014 In active Mobic 15 mg tablet RxNorm: 426356 1/2 Tablet(s) PO daily 04/25/2013 04/25/2013 Inactive lisinopril 20 mg tablet RxNorm: 339036 1 Tablet(s) PO 04/04/2013 03/24/2014 Inactive finasteride 5 mg tablet RxNorm: 940546 tablet oral 03/22/2013 09/01/2015 Inactive lisinopril 10 mg tablet RxNorm: 534598 1 Tablet(s) PO daily 02/14/2013 04/03/2013 Inactive donepezil 5 mg tablet RxNorm: 057184 tablet oral 02/07/2013 12/24/2013 Inactive Influenza Virus Vacc ine 0.5 mL RxNorm: IM 02/06/2013 02/06/2013 Inactive Aricept 5 mg tablet RxNorm: 062695 1 Tablet(s) PO daily 02/06/2013 08/04/2013 Inactive tamsulosin ER 0.4 mg capsule,extended release 24 hr RxNorm: 373400 capsule,extended release 24hr oral 12/21/2012 06/05/2014 Inactive Plavix 75 mg tablet RxNorm: 386987 1 Tablet(s) PO daily 12/05/2012 05/03/2013 Inactive lorazepam 0.5 mg tablet RxNorm: 541197 1/2 Tablet(s) PO Q8 PRN 11/14/2012 08/20/2013 Inactive lisinopril 10 mg tablet RxNorm: 239100 1 Tablet(s) PO daily 08/08/2012 02/03/2013 Inactive Aricept 5 mg tablet RxNorm: 616336 1 Tablet(s) PO daily 08/08/2012 02/03/2013 Inactive Plavix 75 mg tablet RxNorm: 947217 1 Tablet(s) PO daily 07/04/2012 11/30/2012 Inactive Mobic 15 mg tablet RxNorm: 302053 1/2 Tablet(s) PO daily 03/20/2012 04/13/2013 Inactive Namenda 10 mg tablet RxNorm: 806577 1 Tablet(s) PO BID 02/22/2012 04/11/2014 Inactive lorazepam 0.5 mg tablet RxNorm: 814671 1/2 Tablet(s) PO Q8 PRN 02/02/2012 11/13/2012 Inactive lisinopril 10 mg tablet RxNorm: 390073 1 Tablet(s) PO daily 01/24/2012 07/21/2012 Inactive lisinopril 10 mg tablet RxNorm: 635369 1/2 Tablet(s) PO daily 12/20/2011 01/23/2012 Inactive Aricept 5 mg tablet RxNorm: 484445 1 Tablet(s) PO daily 07/14/2011 08/06/2012 Inactive Mobic 15 mg tablet RxNorm: 212469 1 Tablet(s) PO daily 07/14/2011 03/19/2012 Inactive Bentyl 10 mg Cap RxNorm: 025002 1 Capsule(s) PO daily one pill daily and every 6 hours if needed for bowel spasms. 06/23/2011 03/20/2012 Inactive amlodipine 5 mg Tab RxNorm: 499334 2 Tablet(s) PO daily 03/08/2011 12/08/2011 Inactive ZOSTAVAX 19,400 unit Sub-Q Soln RxNorm: 3983344 SQ 02/2502/25/2011 Inactive Pneumovax 23 25 mcg/ 0.5 mL Injection RxNorm: 894980 Milliliter(s) Inj 02/16/2011 02/16/2011 In active Influenza Virus Vacc ine 0.5 mL RxNorm: IM 02/09/2011 02/09/2011 Inactive Namenda 10 mg tablet RxNorm: 408123 1 Tablet(s) PO BID 02/01/2011 02/21/2012 Inactive dicyclomine 10 mg ca psule RxNorm: 504966 capsule oral 01/20/2011 10/29/2013 Inactive Namenda 5 mg tablet RxNorm: 922970 tablet oral 01/20/2011 12/24/2013 Inactive dicyclomine 20 mg ta blet RxNorm: 465185 tablet oral 01/15/2011 10/29/2013 Inactive Flagyl 500 mg Tab RxNorm: 517783 1 Tablet(s) PO TID 01/07/2011 01/06/2011 Inactive Cipro 500 mg Tab RxNorm: 014302 1 Tablet(s) PO BID 01/07/2011 06/23/2011 Inactive Cipro 500 mg Tab RxNorm: 960056 1 Tablet(s) PO BID 01/07/2011 01/06/2011 Inactive Flagyl 500 mg Tab RxNorm: 940117 1 Tablet(s) PO TID 01/07/2011 06/23/2011 Inactive metronidazole 500 mg tablet RxNorm: 681865 tablet oral 01/07/2011 12/24/2013 Inactive sulfamethoxazole 400 mg-trimethoprim 80 mg tablet RxNorm: 040578 tablet oral 12/24/2010 03/10/2015 In active mirtazapine 15 mg ta blet RxNorm: 178897 tablet oral 11/14/2010 12/24/2013 Inactive lisinopril 10 mg tablet RxNorm: 984508 tablet oral 11/14/2010 12/24/2013 Inactive doxycycline hyclate 100 mg tablet RxNorm: 098614 tablet oral 11/04/2010 12/24/2013 Inactive diphenoxylate-atropi ne 2.5 mg-0.025 mg tablet RxNorm: 0502875 tablet oral 11/03/2010 10/29/2013 In active ciprofloxacin 500 mg tablet RxNorm: 879853 tablet oral 11/01/2010 10/29/2013 Inactive Miralax 17 gram/dose oral powder RxNorm: 877380 17 Gram(s) PO daily No Start Date Active alprazolam 0.25 mg t ablet RxNorm: 179015 1 Tablet(s) PO BID PRN No Start Date Active simvastatin 20 mg ta blet RxNorm: 891944 1 Tablet(s) PO daily No Start Date Active Vesicare 5 mg tablet RxNorm: 749462 1 Tablet(s) PO daily No Start Date Active bicalutamide 50 mg t ablet RxNorm: 079715 1 Tablet(s) PO daily No Start Date Active sulfamethoxazole 500 mg Tab RxNorm: 606937 1/2 Tablet(s) PO daily No Start Date 12/24/2013 Inactive Plavix 75 mg Tab RxNorm: 720175 1 Tablet(s) PO daily No Start Date 01/26/2011 Inactive aspirin 81 mg Cap, D elayed Release RxNorm: 790000 1 Capsule(s) PO daily No Start Date 01/04/2018 Inactive Bentyl 10 mg capsule RxNorm: 330185 1 Capsule(s) PO QID as needed per dr. tylor pereira No Start Date 01/04/2018 Inactive famotidine 20 mg tablet RxNorm: 912254 1 Tablet(s) PO BID prescribed in ER No Start Date 10/13/2017 Inactive hydrocodone 5 mg-alexey taminophen 325 mg tablet RxNorm: 531994 1 Tablet(s) PO Q6 as needed No Start Date 06/05/2014 Inactive Proscar 5 mg Tab RxNorm: 898256 1 Tablet(s) PO daily No Start Date 09/01/2015 Inactive Plavix 75 mg tablet RxNorm: 292011 1 Tablet(s) PO daily No Start Date 07/03/2012 Inactive albuterol sulfate 2. 5 mg/0.5 mL solution for nebulization RxNorm: 741370 1 inhale INH Q4H as needed No Start Date 05/20/2014 Inactive metoclopramide 5 mg tablet RxNorm: 827833 1 Tablet(s) PO AC & H S prescribed in ER No Start Date 01/04/2018 Inactive amlodipine 5 mg Tab RxNorm: 936643 1 Tablet(s) PO daily No Start Date 03/07/2011 Inactive ranitidine 150 mg ta blet RxNorm: 229093 1 Tablet(s) PO daily No Start Date 07/24/2018 Inactive Namenda 5 mg Tab RxNorm: 237515 1 Tablet(s) PO daily No Start Date 06/23/2011 Inactive Zyrtec 10 mg tablet RxNorm: 9325374 1 Tablet(s) PO daily No Start Date 01/04/2018 Inactive Allergy Relief (ceti rizine) oral RxNorm: 406865 oral No S tart Date 12/19/2016 Inactive fluocinonide 0.05 % Ointment RxNorm: 791959 1 TOP BID PRN No Start Date 12/24/2013 Inactive amlodipine 5 mg tablet RxNorm: 593781 1 Tablet(s) PO daily No Start Date 09/01/2014 Inactive lisinopril Oral RxNorm: Oral No Start Date 12/08/2011 Inactive simvastatin 20 mg Tab RxNorm: 303351 1 Tablet(s) PO daily No Start Date 06/06/2014 Inactive Bentyl 20 mg Tab RxNorm: 751483 1 Tablet(s) PO Q6 PRN No Start Date 06/23/[address] Quintero Bentyl 10 mg Cap RxNorm: 453325 1 Capsule(s) PO BID No Start Date 06/22/2011 Inactive fluticasone 50 mcg/a ctuation nasal spray,suspension RxNorm: 4691413 1 [place] NASAL BID No Start Date 02/07/2018 Inactive Plavix 75 mg Tab RxNorm: 677088 1 Tablet(s) PO every other day No Start Date 08/24/2011 Inactive lorazepam 0.5 mg tablet RxNorm: 577548 1/2 Tablet(s) PO Q8 PRN No Start Date 02/01/2012 Inactive lisinopril 10 mg tablet RxNorm: 329003 1 Tablet(s) PO daily No Start Date 12/19/2011 Inactive Trulance 3 mg tablet RxNorm: 8172337 1 Tablet(s) PO QAM No Start Date 01/18/2018 Inactive Flomax 0.4 mg 24 hr Cap RxNorm: 719623 1 Capsule(s) PO daily No Start Date 05/28/2014 Inactive Phenergan 6.25 mg/5 mL syrup RxNorm: 305360 5-10 Milliliter(s) PO QID as needed No Start Date 08/16/2018 Inactive Aricept 5 mg Tab RxNorm: 178508 1 Tablet(s) PO daily No Start Date 07/13/2011 Inactive Vitamin D 1,000 unit Tab RxNorm: 055872 1 Tablet(s) PO daily No Start Date 01/04/2018 Inactive Levsin 0.125 mg tablet RxNorm: 6070962 1 Tablet(s) PO QID as needed FOR ABD REJI N No Start Date 11/04/2014 Inactive mirtazapine 7.5 mg t ablet RxNorm: 030713 1/2 Tablet(s) PO daily No Start Date 08/29/2013 Inactive Senior Vitamin Tab RxNorm: 1 Tablet(s) PO daily No Start Date 01/04/2018 Inactive Mobic 15 mg Tab RxNorm: 659958 1 Tablet(s) PO daily No Start Date 07/13/2011 Inactive Medication Administered Medication Codes Instruc tions Start Date Status Kenalog 40 mg/mL suspension for injection RxNorm: 2145252 Milliliter 11/25/2016 No longer Active Influenza Virus Vaccine 0.5 mL RxNorm: 02/06/2013 No longer Active ZOSTAVAX 19,400 unit Sub-Q Soln RxNo rm: [id number] 02/25/2011 No longer A ctive Pneumovax 23 25 mcg/0.5 mL Injection RxNorm: 247371 Milliliter 02/16/2011 No longer Active Influenza Virus [...] Ord15 CALCIUM 10.1 mg/dL 06/08/2018 Comp Metabolic Ahe015 NA 143 mEq/L 04/10/2018 Comp Metabolic Vls638 K 3.8 mEq/L 04/10/2018 Comp Metabolic Whh624 CL 105 mEq/L 04/10/2018 Comp Metabolic Bss119 CO2 30.0 mEq/L 04/10/2018 Comp Metabolic Qbj691 AN ION GAP 12 04/10/2018 Comp Metabolic Fun524 GL UCOSE 95 mg/dL 04/10/2018 Comp Metabolic Zrq838 Cr eat 1.2 mg/dL 04/10/2018 Comp Metabolic Kwq665 eG FR 60 ml/min/1.73m2 04/10 Comp Metabolic Krq156 BUN 22 mg/dL 04/10/2018 Comp Metabolic Qms624 B/ C Ratio 18.2 Ratio 04/10/2018 Comp Metabolic Drf658 CA LCIUM 10.3 mg/dL 04/10/2018 Comp Metabolic Ppn035 AL K PHOS 113 U/L 04/10/2018 Comp Metabolic Ssg063 T(SGOT) 30 U/L 04/10/2018 Comp Metabolic Jdc970 AL T(SGPT) 19 U/L 04/10/2018 Comp Metabolic Tbr531 BI LI T 0.4 mg/dL 04/10/2018 Comp Metabolic Zri466 AL BUMIN 4.2 g/dL 04/10/2018 Comp Metabolic Qav414 TP RO 6.5 g/dL 04/10/2018 Comp Metabolic Dbt490 GL OB 2.3 g/dL 04/10/2018 Comp Metabolic Dhm462 A/ G Ratio 1.8 Ratio 04/10/2018 Comp Metabolic Kee992 Os mo 288 mOsmo 04/10/2018 Lipid Ord30 CHOL 133 mg/dL 04/10/2018 Lipid Ord30 HDL 49.0 mg/dl 04/10/2018 Lipid Ord30 TRIG 68 mg/dL 04/10/2018 Lipid Ord30 LDL 70 mg/dL 04/10/2018 Lipid Ord30 C/HDL 2.7 Ratio 04/10/2018 C RAP A SC [id number] Strep A Negative 01/13/2018 Comp Metabolic Jem382 NA 134 mEq/L 10/07/2017 Comp Metabolic Bfo886 K 4.5 mEq/L 10/07/2017 Comp Metabolic Qav123 CL 99 mEq/L 10/07/2017 Comp Metabolic Vqu073 CO2 31.0 mEq/L 10/07/2017 Comp Metabolic Bcm730 AN ION GAP 9 10/07/2017 Comp Metabolic Vvc351 GL UCOSE 82 mg/dL 10/07/2017 Comp Metabolic Aso509 Cr eat 1.0 mg/dL 10/07/2017 Comp Metabolic Jgm315 eG FR 77 ml/min/1.73m2 10/07 Comp Metabolic Uln549 BUN 16 mg/dL 10/07/2017 Comp Metabolic Sgt999 B/ C Ratio 16.3 Ratio 10/07/2017 Comp Metabolic Yxu342 CA LCIUM 9.6 mg/dL 10/07/2017 Comp Metabolic Kyg163 AL K PHOS 72 U/L 10/07/2017 Comp Metabolic Xnw951 T(SGOT) 21 U/L 10/07/2017 Comp Metabolic Bjs362 AL T(SGPT) 14 U/L 10/07/2017 Comp Metabolic Nyk303 BI LI T 0.4 mg/dL 10/07/2017 Comp Metabolic Nph975 AL BUMIN 4.0 g/dL 10/07/2017 Comp Metabolic Ujh902 TP RO 5.7 g/dL 10/07/2017 Comp Metabolic Gsf818 GL OB 1.7 g/dL 10/07/2017 Comp Metabolic Aob702 A/ G Ratio 2.4 Ratio 10/07/2017 Comp Metabolic Wil785 Os mo 269 mOsmo 10/07/2017 Lipid Ord30 CHOL 135 mg/dL 10/07/2017 Lipid Ord30 HDL 69.0 mg/dl 10/07/2017 Lipid Ord30 TRIG 52 mg/dL 10/07/2017 Lipid Ord30 LDL 56 mg/dL 10/07/2017 Lipid Ord30 C/HDL 2.0 Ratio 10/07/2017 %Hba1C Jwt527 % HbA1c 05537-8 5.5 % 09/12/2017 %Hba1C Vhu773 Gluc Ave 111 mg/dL 09/12/2017 B12 Irk433 B12 816.00 pg/ml 09/10/2017 Test(s) Not Perfromed Test(s) Not Performed Test(s) Not Performed. See B elow: 09/09/2017 Test(s) Not Perfromed TEST NAME VIT D 09/09/2017 Test(s) Not Perfromed Rejection Reason NO PAYABLE DX 018 Test(s) Not Perfromed COMMENT PATIENT SAID HE WAS TAKING SUPPLEMENT 09/09/2017 Test(s) Not Perfromed Tester Electronic Scale Tello Almeida 018 Lipid Ord30 CHOL 134 mg/dL 04/11/2017 Lipid Ord30 HDL 63.0 mg/dl 04/11/2017 Lipid Ord30 TRIG 45 mg/dL 04/11/2017 Lipid Ord30 LDL 62 mg/dL 04/11/2017 Lipid Ord30 C/HDL 2.1 Ratio 04/11/2017 Tsh Ord6 hTSH II 2.07 uIU/mL 04/11/2017 Body Fluid Crystals Source RIGHT ELBOW 6 Body Fluid Crystals CRYSTALS, BODY FLUID 02/18/2016 Uric Acid Body Fluid 521489 URIC ACID-FLUID 4.3 mg/dL 02/18/2016 Metabolic Ord15 [...] Ord15 CALCIUM 9.1 mg/dL 02/05/2016 Comp Metabolic Htn811 NA 129 mEq/L 10/08/2015 Comp Metabolic Ewa474 K 4.7 mEq/L 10/08/2015 Comp Metabolic Fgd485 CL 98 mEq/L 10/08/2015 Comp Metabolic Doa264 CO2 28.0 mEq/L 10/08/2015 Comp Metabolic Nxf711 AN ION GAP 8 10/08/2015 Comp Metabolic Ohz540 GL UCOSE 84 mg/dL 10/08/2015 Comp Metabolic Cnp210 Cr eat 1.3 mg/dL 10/08/2015 Comp Metabolic Rxh952 eG FR 56 ml/min/1.73m2 10/07 Comp Metabolic Axa718 BUN 23 mg/dL 10/08/2015 Comp Metabolic Bdq989 B/ C Ratio 17.8 Ratio 10/08/2015 Comp Metabolic Njs278 CA LCIUM 9.3 mg/dL 10/08/2015 Comp Metabolic Kwm886 AL K PHOS 68 U/L 10/08/2015 Comp Metabolic Pmv176 T(SGOT) 24 U/L 10/08/2015 Comp Metabolic Uer406 AL T(SGPT) 15 U/L 10/08/2015 Comp Metabolic Cdd680 BI LI T 0.5 mg/dL 10/08/2015 Comp Metabolic Siu225 AL BUMIN 4.0 g/dL 10/08/2015 Comp Metabolic Trp952 TP RO 5.9 g/dL 10/08/2015 Comp Metabolic Vqw376 GL OB 1.9 g/dL 10/08/2015 Comp Metabolic Luh902 A/ G Ratio 2.1 Ratio 10/08/2015 Comp Metabolic Hqo034 Os mo 262 mOsmo 10/08/2015 Lipid Ord30 [...] Ord30 C/HDL 2.3 Ratio 05/07/2015 Comp Metabolic Yge977 NA 132 mEq/L 05/07/2015 Comp Metabolic Doy314 K 4.4 mEq/L 05/07/2015 Comp Metabolic Vkn711 CL 97 mEq/L 05/07/2015 Comp Metabolic Dru172 CO2 30.0 mEq/L 05/07/2015 Comp Metabolic Oyh250 AN ION GAP 9 05/07/2015 Comp Metabolic Fqg753 GL UCOSE 78 mg/dL 05/07/2015 Comp Metabolic Apk931 Cr eat 1.2 mg/dL 05/07/2015 Comp Metabolic Jrc288 eG FR 60 ml/min/1.73m2 05/07 Comp Metabolic Wuz209 BUN 25 mg/dL 05/07/2015 Comp Metabolic Brr037 B/ C Ratio 20.3 Ratio 05/07/2015 Comp Metabolic Sri963 CA LCIUM 9.6 mg/dL 05/07/2015 Comp Metabolic Flt063 AL K PHOS 70 U/L 05/07/2015 Comp Metabolic Msz032 T(SGOT) 27 U/L 05/07/2015 Comp Metabolic Blx659 AL T(SGPT) 20 U/L 05/07/2015 Comp Metabolic Sab528 BI LI T 0.4 mg/dL 05/07/2015 Comp Metabolic Wcf719 AL BUMIN 4.0 g/dL 05/07/2015 Comp Metabolic Wss294 TP RO 5.8 g/dL 05/07/2015 Comp Metabolic Wxg514 GL OB 1.8 g/dL 05/07/2015 Comp Metabolic Krc277 A/ G Ratio 2.3 Ratio 05/07/2015 Comp Metabolic Syy566 Os mo 268 mOsmo 05/07/2015 Cbc With [...] hTSH II 4.07 uIU/mL 05/07/2015 Comp Metabolic Pxu272 NA 134 mEq/L 12/10/2014 Comp Metabolic Ysk223 K 4.8 mEq/L 12/10/2014 Comp Metabolic Tlf497 CL 101 mEq/L 12/10/2014 Comp Metabolic Qze001 CO2 30.0 mEq/L 12/10/2014 Comp Metabolic Fli483 AN ION GAP 8 12/10/2014 Comp Metabolic Tnm559 GL UCOSE 85 mg/dL 12/10/2014 Comp Metabolic Rei623 Cr eat 1.2 mg/dL 12/10/2014 Comp Metabolic Rzp993 eG FR 65 ml/min/1.73m2 12/10 Comp Metabolic Spq925 BUN 25 mg/dL 12/10/2014 Comp Metabolic Fra823 B/ C Ratio 21.7 Ratio 12/10/2014 Comp Metabolic Mwb259 CA LCIUM 9.5 mg/dL 12/10/2014 Comp Metabolic Yiq824 AL K PHOS 76 U/L 12/10/2014 Comp Metabolic Sst552 T(SGOT) 27 U/L 12/10/2014 Comp Metabolic Pcu008 AL T(SGPT) 18 U/L 12/10/2014 Comp Metabolic Ove066 BI LI T 0.5 mg/dL 12/10/2014 Comp Metabolic Asj655 AL BUMIN 4.1 g/dL 12/10/2014 Comp Metabolic Mkm815 TP RO 5.7 g/dL 12/10/2014 Comp Metabolic Xjy203 GL OB 1.6 g/dL 12/10/2014 Comp Metabolic Bch268 A/ G Ratio 2.6 Ratio 12/10/2014 Comp Metabolic Kvc415 Os mo 272 mOsmo 12/10/2014 B12 Vbj342 B12 1011.00 pg/ml 12/10/2014 Lipid Ord30 CHOL [...] Differential Ord2 RDW 14.3 % 12/10/2014 CBC 8138835 WBC 4.1 10e9/L 02/19/2013 CBC 8162786 RBC 4.39 10e12/L 02/19/2013 CBC 3283774 HGB 14.1 g/dL 02/19/2013 CBC 5810859 HCT DET 41.0 % 02/19/2013 CBC 6328835 MCV 93.4 fL 02/19/2013 CBC 2470297 MCH 32.1 pg 02/19/2013 CBC 6507596 MCHC 34.4 g/dL 02/19/2013 CBC 5313387 PLT 151 10e9/L 02/19/2013 CBC 5084698 MPV 11.8 fL 02/19/2013 CBC 5256193 YOVANNY % 63.2 % 02/19/2013 CBC 7606504 LY % 22.9 % 02/19/2013 CBC 2057144 MON % 11.5 % 02/19/2013 CBC 0177805 EOS % 2.2 % 02/19/2013 CBC 3829694 BASO % 0.2 % 02/19/2013 CBC 4634230 RDW 13.8 % 02/19/2013 CBC 1587570 ABS YOVANNY 2.59 10e9/L 02/19/2013 CBC 8939280 ABS LYMPH 0.94 10e9/L 02/19/2013 CBC 1212134 ABS MONO 0.47 10e9/L 02/19/2013 CBC 8208964 ABS EOS 0.09 10e9/L 02/19/2013 CBC 7028312 ABS BASO 0.01 10e9/L 02/19/2013 CBC 4816729 RDW-SD 46.0 fL 02/19/2013 TSH 9440208 TSH 2.094 uIU/ML 02/19/2013 FREE T4 5796047 FREE T4 1.18 NG/DL 02/19/2013 GFR CALC 0872680 GFR AA >60 ML/MIN 02/19/2013 GFR CALC 4453764 GFR NON -AA >60 ML/MIN 02/19/2013 CHEM 14 2517229 AST 30 U/L 02/19/2013 CHEM 14 8674165 ALT 19 IU/L 02/19/2013 CHEM 14 2493012 BUN 21 MG/DL 02/19/2013 CHEM 14 7438179 ALBUMIN 4.4 GM/DL 02/19/2013 CHEM 14 9645801 CHLORIDE 94 MMOL/L 02/19/2013 CHEM 14 0108414 BILI TOT 0.5 MG/DL 02/19/2013 CHEM 14 0694596 ALK PHOS 75 U/L 02/19/2013 CHEM 14 8044119 SODIUM 133 MMOL/L 02/19/2013 CHEM 14 9009150 CREATINI NE 1.07 MG/DL 02/19/2013 CHEM 14 7640527 CALCIUM 9.6 MG/DL 02/19/2013 CHEM 14 0242395 POTASSIUM 4.6 MMOL/L 02/19/2013 CHEM 14 6391312 PROT TOT 6.1 GM/DL 02/19/2013 CHEM 14 6114628 GLUCOSE 94 MG/DL 02/19/2013 CHEM 14 3953605 BICARB 31 MMOL/L 02/19/2013 CHEM 14 8790042 ANION GAP 8 MEQ/L 02/19/2013 UA 91248 Specific [place] 1.015 DateTime(Free Text in ) UA 56272 PH 6 DateTime(Free Text in Aprima ) UA 19241 GLUCOSE neg DateTime(Free Text in Aprima ) UA 55111 Protein neg DateTime(Free Text in Aprima ) UA 27443 Blood neg DateTime(Free Text in Aprima ) UA 16931 Bilirubin neg DateTime(Free Text in Aprima ) UA 75202 Ketones neg DateTime(Free Text in Aprima ) UA 33378 Urobilinogen neg DateTime(Free Text in Aprima ) UA 21411 Nitrite neg DateTime(Free Text in Aprima ) UA 04004 Leukocytes neg DateTime(Free Text in Aprima ) [...] No mental status change 11/14/2017 Psychiatric anxiety 01/2018 Psychiatric disturbances of memory 11/14/2017 Constitutional [...] General 1995 Eyes conjunctiva/eyelids Overall: eyelids normal 05/18/2018 None [...] performed today - UMS exam - score / Full Exam - General Ears/Nose/Throat oral cavity/pharynx/larynx [...] VACC PRSV FREE I NC ANTIG CPT-4: 18442 02/08/2018 URINALYSIS NONAUTO W /O SCOPE CPT-4: 76655 09/26/2017 ADMIN INFLUENZA VIRU S VAC CPT-4: G0008 01/25/2017 FLU VACC PRSV FREE I NC ANTIG CPT-4: 72057 01/25/2017 THER/PROPH/DIAG INJ SC/IM CPT-4: 58525 11/25/2016 TRIAMCINOLONE ACET I [place] NOS CPT-4: J3301 11/25/2016 DRAIN/INJECT JOINT/B URSA CPT-4: 46022 02/17/2016 IMMUNIZATION ADMIN CPT- 4: 90607 05/06/2015 PNEUMOCOCCAL VACC 13 TIFFANIE IM Formatting Model/CDA Sections, Assigned to/Celia Minaya SNOMED CT: [id number] CPT-4: 53110Whbxckf 05/06/2015 ADMIN INFLUENZA VIRU S VAC CPT-4: G0008 02/19/2015 FLU VACC 4 TIFFANIE 3 YRS PLUS IM Formatting Model/CDA Sections, Assigned to SNOMED CT: [id number] CPT-4: 94677Fikvkfb 02/19/2015 URINALYSIS NONAUTO W /O SCOPE CPT-4: 29668 05/23/2014 ADMIN INFLUENZA VIRU S VAC CPT-4: G0008 03/26/2014 FLU VAC NO PRSV 4 VA L 3 YRS+ Assigned to/Celia Minaya CPT-4: 22976Hmnnhpx 03/26/2014 PRESCRIP TRANSMIT A ERX SY CPT-4: G8553 04/04/2013 ROUTINE VENIPUNCTURE CPT-4: 34305 02/19/2013 ADMIN INFLUENZA VIRU S VAC CPT-4: G0008 02/06/2013 FLULAVAL VACC, 3 YRS & >, IM CPT-4: Q2036 02/06/2013 77369 EST. PATIENT, LEVEL IV CPT-4: 04190 06/19/2012 PRESCRIP TRANSMIT A ERX SY CPT-4: G8553 06/19/2012 PRESCRIP TRANSMIT A ERX SY CPT-4: G8553 03/20/2012 PRESCRIP TRANSMIT A ERX SY CPT-4: G8553 06/23/2011 IMMUNIZATION ADMIN CPT- 4: 82555 02/25/2011 ZOSTER VACC SC (No lloyd stephens, patient supplied vaccine) CPT-4: 09882OZ 02/25/2011 ADMIN PNEUMOCOCCAL V ACCINE SNOMED CT: 92430145 CPT-4: G0009 02/16/2011 Pneumococcal Polysac charide Vaccine, 23-Valent, Ad CPT-4: 04594 02/16/2011 ADMIN INFLUENZA VIRU S VAC CPT-4: G0008 02/09/2011 FLULAVAL VACC, 3 YRS & >, IM CPT-4: Q2036 02/09/2011 PRESCRIP TRANSMIT A ERX SY CPT-4: G8553 02/01/2011 URINALYSIS NONAUTO W /O SCOPE CPT-4: 40516 01/27/2011 Vital Signs Date Vital 08/17/2018 Blood Pressure 1: 138/68 Code: 8480-6 BMI: 20.4 Code: 95637-5 Heart Rate 1: 76 bpm Height: 5'9" Weight: 138 lbs 05/18/2018 Blood Pressure 1: 142/64 Code: 8480-6 BMI: 19.9 Code: 97631-1 Heart Rate 1: 52 bpm Height: 5'9" SpO2: 98% Weight: 135 lbs 04/13/2018 Blood Pressure 1: 128/58 Code: 8480-6 BMI: 21.0 Code: 78600-8 Heart Rate 1: 83 bpm Height: 5'9" SpO2: 94% Weight: 142 lbs 02/08/2018 Blood Pressure 1: 136/76 Code: 8480-6 BMI: 19.9 Code: 89036-6 Heart Rate 1: 78 bpm Height: 5'9" SpO2: 99% Weight: 135 lbs 01/19/2018 Blood Pressure 1: 114/78 Code: 8480-6 BMI: 19.9 Code: 07317-1 Heart Rate 1: 80 bpm Height: 5'9" SpO2: 98% Weight: 135 lbs 01/12/2018 Blood Pressure 1: 130/78 Code: 8480-6 BMI: 19.8 Code: 91077-8 Heart Rate 1: 85 bpm Height: 5'9" SpO2: 97% Weight: 134 lbs 01/05/2018 Blood Pressure 1: 122/70 Code: 8480-6 BMI: 19.6 Code: 00647-9 Heart Rate 1: 87 bpm Height: 5'9" SpO2: 96% Weight: 133 lbs 11/14/2017 Blood Pressure 1: 130/70 Code: 8480-6 BMI: 19.5 Code: 89038-0 Heart Rate 1: 75 bpm Height: 5'9" SpO2: 98% Weight: 132 lbs 2017 Blood Pressure 1: 116/70 Code: 8480-6 BMI: 19.5 Code: 61035-3 Heart Rate 1: 55 bpm Height: 5'9" SpO2: 95% Weight: 132 lbs 10/13/2017 Blood Pressure 1: 130/70 Code: 8480-6 BMI: 19.3 Code: 06736-8 Heart Rate 1: 67 bpm Height: 5'9" SpO2: 98% Weight: 131 lbs 09/26/2017 Blood Pressure 1: 126/70 Code: 8480-6 BMI: 19.1 Code: 83603-1 Heart Rate 1: 66 bpm Height: 5'9" SpO2: 100% Weight: 129 lbs 8 oz 09/12/2017 Blood Pressure 1: 120/70 Code: 8480-6 BMI: 19.5 Code: 12296-3 Heart Rate 1: 83 bpm Height: 5'9" SpO2: 99% Weight: 132 lbs 09/09/2017 Blood Pressure 1: 126/70 Code: 8480-6 BMI: 19.3 Code: 04979-0 Heart Rate 1: 80 bpm Height: 5'9" SpO2: 98% Weight: 131 lbs 08/17/2017 Blood Pressure 1: 130/74 Code: 8480-6 BMI: 19.6 Code: 09577-8 Heart Rate 1: 72 bpm Height: 5'9" SpO2: 98% Weight: 133 lbs 07/20/2017 Blood Pressure 1: 124/62 Code: 8480-6 BMI: 19.8 Code: 38167-6 Heart Rate 1: 65 bpm Height: 5'9" SpO2: 96% Weight: 134 lbs 07/01/2017 Blood Pressure 1: 134/64 Code: 8480-6 BMI: 21.0 Code: 60764-3 Height: 5'9" Weight: 142 lbs 06/21/2017 Blood Pressure 1: 142/80 Code: 8480-6 BMI: 21.0 Code: 89505-1 Heart Rate 1: 63 bpm Height: 5'9" SpO2: 98% Weight: 142 lbs 03/21/2017 Blood Pressure 1: 128/66 Code: 8480-6 BMI: 20.8 Code: 29402-0 Heart Rate 1: 61 bpm Height: 5'9" SpO2: 98% Weight: 141 lbs 03/08/2017 Blood Pressure 1: 134/68 Code: 8480-6 BMI: 20.4 Code: 68646-7 Heart Rate 1: 56 bpm Height: 5'9" SpO2: 99% Weight: 138 lbs 01/25/2017 Blood Pressure 1: 98/62 Code: 8480-6 BMI: 20.6 Code: 63337-3 Heart Rate 1: 71 bpm Height: 5'9" SpO2: 97% Weight: 139 lbs 8 oz 12/20/2016 Blood Pressure 1: 120/68 Code: 8480-6 BMI: 20.4 Code: 64417-9 Heart Rate 1: 70 bpm Height: 5'9" [...] 1: 120/60 Code: 8480-6 BMI: 20.7 Code: 85444-0 Heart Rate 1: 74 bpm Height: 5'9" SpO2: 95% Weight: 140 lbs 08/23/2016 Blood Pressure 1: 118/68 Code: 8480-6 BMI: 20.8 Code: 37202-2 Heart Rate 1: 54 bpm Height: 5'9" SpO2: 97% Weight: 141 lbs 04/26/2016 Blood Pressure 1: 108/64 Code: 8480-6 BMI: 21.0 Code: 92664-5 Heart Rate 1: 62 bpm Height: 5'9" SpO2: 95% Weight: 142 lbs 02/17/2016 Blood Pressure 1: 138/80 Code: 8480-6 BMI: 20.2 Code: 99292-7 Heart Rate 1: 76 bpm Height: 5'9" SpO2: 97% Weight: 137 lbs 02/09/2016 Blood Pressure 1: 140/76 Code: 8480-6 BMI: 20.2 Code: 27054-9 Heart Rate 1: 72 bpm Height: 5'9" SpO2: 96% Weight: 137 lbs 02/03/2016 Blood Pressure 1: 136/80 Code: 8480-6 BMI: 20.7 Code: 29316-0 Heart Rate 1: 86 bpm Height: 5'9" SpO2: 96% Weight: 140 lbs 01/26/2016 Blood Pressure 1: 144/78 Code: 8480-6 BMI: 20.7 Code: 16810-8 Heart Rate 1: 73 bpm Height: 5'9" SpO2: 97% Temperature: 37.0 (C ) / 98.6 (F) Weight: 140 lbs 01/21/2016 Blood Pressure 1: 116/62 Code: 8480-6 BMI: 20.4 Code: 23938-6 Heart Rate 1: 66 bpm Height: 5'9" SpO2: 97% Weight: 138 lbs 12/29/2015 Blood Pressure 1: 130/74 Code: 8480-6 BMI: 20.4 Code: 17326-3 Heart Rate 1: 51 bpm Height: 5'9" SpO2: 98% Weight: 138 lbs 09/02/2015 Blood Pressure 1: 126/60 Code: 8480-6 BMI: 22.3 Code: 78077-0 Heart Rate 1: 55 bpm Height: 5'9" SpO2: 96% Weight: 151 lbs 05/06/2015 Blood Pressure 1: 132/72 Code: 8480-6 BMI: 21.0 Code: 86641-8 Heart Rate 1: 63 bpm Height: 5'9" SpO2: 97% Weight: 142 lbs 03/05/2015 Blood Pressure 1: 130/68 Code: 8480-6 BMI: 21.0 Code: 62243-8 Heart Rate 1: 61 bpm Height: 5'9" SpO2: 96% Weight: 142 lbs 12/04/2014 Blood Pressure 1: 122/64 Code: 8480-6 BMI: 21.3 Code: 40445-4 Heart Rate 1: 72 bpm Height: 5'9" Weight: 144 lbs 09/24/2014 Blood Pressure 1: 142/80 Code: 8480-6 BMI: 20.4 Code: 09421-1 Heart Rate 1: 80 bpm Height: 5'9" Weight: 138 lbs 09/09/2014 Blood Pressure 1: 122/74 Code: 8480-6 BMI: 20.5 Code: 74963-2 Heart Rate 1: 64 bpm Height: 5'9" Weight: 139 lbs 07/26/2014 Blood Pressure 1: 136/82 Code: 8480-6 BMI: 20.4 Code: 18286-0 Heart Rate 1: 87 bpm Height: 5'9" SpO2: 92% Weight: 138 lbs 07/10/2014 Blood Pressure 1: 130/74 Code: 8480-6 BMI: 21.1 Code: 56159-6 Heart Rate 1: 64 bpm Height: 5'9" Weight: 143 lbs 06/06/2014 Blood Pressure 1: 142/88 Code: 8480-6 BMI: 20.4 Code: 25442-6 Heart Rate 1: 68 bpm Height: 5'9" Weight: 138 lbs 05/29/2014 Blood Pressure 1: 108/72 Code: 8480-6 BMI: 20.5 Code: 90108-3 Heart Rate 1: 60 bpm Height: 5'9" Weight: 139 lbs 05/20/2014 Blood Pressure 1: 140/72 Code: 8480-6 BMI: 21.6 Code: 36819-8 Heart Rate 1: 60 bpm Height: 5'9" SpO2: 98% Temperature: 36.2 (C ) / 97.2 (F) Weight: 146 lbs 03/25/2014 Blood Pressure 1: 128/60 Code: 8480-6 BMI: 21.4 Code: 05890-0 Heart Rate 1: 62 bpm Height: 5'9" Weight: 145 lbs 02/08/2014 Blood Pressure 1: 136/82 Code: 8480-6 BMI: 21.3 Code: 45372-0 Heart Rate 1: 68 bpm Height: 5'9" Weight: 144 lbs 12/24/2013 Blood Pressure 1: 122/76 Code: 8480-6 BMI: 21.6 Code: 60484-2 Heart Rate 1: 58 bpm Height: 5'9" Weight: 146 lbs 11/20/2013 Blood Pressure 1: 112/62 Code: 8480-6 BMI: 20.7 Code: 70441-3 Heart Rate 1: 56 bpm Height: 5'9" Weight: 140 lbs 10/30/2013 Blood Pressure 1: 130/68 Code: 8480-6 BMI: 20.1 Code: 50747-6 Heart Rate 1: 68 bpm Height: 5'9" SpO2: 96% Weight: 136 lbs 10/08/2013 Blood Pressure 1: 128/72 Code: 8480-6 BMI: 20.8 Code: 12769-2 Heart Rate 1: 60 bpm Height: 5'9" Temperature: 36.6 (C ) / 97.8 (F) Weight: 141 lbs 06/18/2013 Blood Pressure 1: 124/78 Code: 8480-6 BMI: 20.8 Code: 65239-8 Heart Rate 1: 64 bpm Height: 5'9" Weight: 141 lbs 04/04/2013 Blood Pressure 1: 138/60 Code: 8480-6 BMI: 20.8 Code: 32972-7 Heart Rate 1: 56 bpm Height: 5'9" Weight: 141 lbs 02/19/2013 Blood Pressure 1: 152/74 Code: 8480-6 BMI: 21.0 Code: 99373-0 Heart Rate 1: 60 bpm Height: 5'9" Weight: 142 lbs 10/16/2012 Blood Pressure 1: 122/70 Code: 8480-6 BMI: 20.8 Code: 96305-6 Heart Rate 1: 64 bpm Height: 5'9" Weight: 141 lbs 06/19/2012 Blood Pressure 1: 120/72 Code: 8480-6 BMI: 21.1 Code: 63611-3 Heart Rate 1: 60 bpm Height: 5'9" Weight: 143 lbs 03/20/2012 Blood Pressure 1: 114/76 Code: 8480-6 Heart Rate 1: 60 bpm Respiratory Rate: 16 bpm Weight: 143 lbs 01/24/2012 Blood Pressure 1: 134/70 Code: 8480-6 Heart Rate 1: 64 bpm Weight: 143 lbs 12/20/2011 Blood Pressure 1: 98/72 Code: 8480-6 BMI: 21.1 Code: 03923-6 Heart Rate 1: 60 bpm Height: 5'9" Respiratory Rate: 16 bpm Weight: 143 lbs 12/09/2011 Blood Pressure 1: 110/60 Code: 8480-6 Heart Rate 1: 66 bpm SpO2: 98% Weight: 141 lbs 08/25/2011 Blood Pressure 1: 112/70 Code: 8480-6 BMI: 20.8 Code: 55072-1 Heart Rate 1: 54 bpm Height: 5'9" Respiratory Rate: 16 bpm Weight: 141 lbs 06/23/2011 Blood Pressure 1: 126/64 Code: 8480-6 Heart Rate 1: 60 bpm Respiratory Rate: 16 bpm Weight: 142 lbs 04/19/2011 Blood Pressure 1: 124/64 Code: 8480-6 BMI: 21.1 Code: 79807-2 Heart Rate 1: 64 bpm Height: 5'9" Respiratory Rate: 16 bpm Weight: 143 lbs 03/23/2011 Blood Pressure 1: 137/71 Code: 8480-6 Heart Rate 1: 57 bpm 03/08/2011 Blood Pressure 1: 154/70 Code: 8480-6 BMI: 20.8 Code: 17879-8 Heart Rate 1: 60 bpm Height: 5'9" Respiratory Rate: 16 bpm Weight: 141 lbs 03/01/2011 Blood Pressure 1: 178/80 Code: 8480-6 Blood Pressure 2: 168/70 Code: 8480-6 BMI: 24.1 Code: 62195-7 Heart Rate 1: 60 bpm Height: 5'9" Respiratory Rate: 16 bpm Weight: 163 lbs 02/01/2011 Blood Pressure 1: 162/84 Code: 8480-6 Heart Rate 1: 60 bpm Respiratory Rate: 16 bpm Weight: 144 lbs 01/27/2011 Blood Pressure 1: 138/54 Code: 8480-6 BMI: 21.1 Code: 36867-9 Heart Rate 1: 68 bpm Height: 5'9" Respiratory Rate: 16 bpm Weight: 143 lbs 01/26/2011 Blood Pressure 1: 148/86 Code: 8480-6 BMI: 21.3 Code: 79492-3 Heart Rate 1: 74 bpm Height: 5'9" Weight: 144 lbs 01/15/2011 Blood Pressure 1: 136/76 Code: 8480-6 BMI: 20.5 Code: 63637-9 Heart Rate 1: 70 bpm Height: 5'10" Weight: 141 lbs 01/06/2011 Blood Pressure 1: 148/72 Code: 8480-6 BMI: 20.2 Code: 88193-8 Heart Rate 1: 72 bpm Height: 5'10" [...] Encounters Encounter Performer Loca tion Codes Date ([id number]) [id number] EST. P ATIENT, LEVEL IV Diagnosis: Essential (primary) hypertension[ICD10: I10] Diagnosis: Gastro-esophageal reflux disease without esophagitis[ICD10: K21.9] Diagnosis: Alzheimer's disease with late onset[ICD10: G30.1] Ale Carlos MD, [facility] CPT-4: 86730 08/17/2018 ([id number]) [id number] EST. 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 P ATIENT, LEVEL III Diagnosis: Essential (primary) hypertension[ICD10: I10] Ale Carlos MD, [facility] CPT-4: 77772 04/13/2018 ([id number]) 53908 EST. P ATIENT, LEVEL IV Diagnosis: Irritable bowel syndrome with constipation[ICD10: K58.1] Diagnosis: Other lesions of oral mucosa[ICD10: K13.79] Diagnosis: Dry mouth, unspecified[ICD10: R68.2] Diagnosis: Encounter for immunization[ICD10: Z23] Diagnosis: Essential (primary) hypertension[ICD10: I10] Ale Carlos MD, [facility] CPT-4: 76504 02/08/2018 ([id number]) 07179 EST. P ATIENT, LEVEL III Diagnosis: Slow transit constipation[ICD10: K59.01] Diagnosis: Dry mouth, unspecified[ICD10: R68.2] Nelly Carlos MD, [facility] CPT-4: 40147 01/19/2018 ([id number]) Miscellaneou s no charge Diagnosis: Acute pharyngitis, unspecified[ICD10: J02.9] Nelly Carlos MD, [facility] CPT-4: 85877 01/13/2018 ([id number]) 48478 EST. P ATIENT, LEVEL III Diagnosis: Candidal stomatitis[ICD10: B37.0] Diagnosis: Cough[ICD10: R05] Nelly Carlos MD, [facility] CPT-4: 34139 01/12/2018 ([id number]) 79427 EST. P ATIENT, LEVEL IV Diagnosis: Essential (primary) hypertension[ICD10: I10] Diagnosis: Generalized anxiety disorder[ICD10: F41.1] Diagnosis: Major depressive disorder, single episode, mild[ICD10: F32.0] Diagnosis: Slow transit constipation[ICD10: K59.01] Ale Carlos MD, [facility] CPT-4: 97475 01/05/2018 ([id number]) 90264 EST. P ATIENT, LEVEL IV Diagnosis: Irritable bowel syndrome with constipation[ICD10: K58.1] Diagnosis: Malignant neoplasm of prostate[ICD10: C61] Ale Carlos MD, C CPT-4: 21263 11/14/2017 [id number] EST. PATIENT, LEVEL IV Diagnosis: Slow transit constipation[ICD10: K59.01] Diagnosis: Gastro-esophageal reflux disease without esophagitis[ICD10: K21.9] Ruchi Carlos MD, [facility] CPT-4: 57961 2017 ([id number]) 75250 EST. P ATIENT, LEVEL IV Diagnosis: Essential (primary) hypertension[ICD10: I10] Diagnosis: Slow transit constipation[ICD10: K59.01] Diagnosis: Underweight[ICD10: R63.6] Diagnosis: Gastro-esophageal reflux disease without esophagitis[ICD10: K21.9] Ale Carlos MD, [facility] CPT-4: 92936 10/13/2017 ([id number]) 82893 EST. P ATIENT, LEVEL IV Diagnosis: Slow transit constipation[ICD10: K59.01] Diagnosis: Gastroparesis[ICD10: K31.84] Diagnosis: Gastro-esophageal reflux disease without esophagitis[ICD10: K21.9] Diagnosis: Dysuria[ICD10: R30.0] Ale Carlos MD, [facility] CPT-4: 93578 09/26/2017 ([id number]) 49041 EST. P ATIENT, LEVEL IV Diagnosis: Other abnormal glucose[ICD10: R73.09] Diagnosis: Slow transit constipation[ICD10: K59.01] Ale Carlos MD, [facility] CPT-4: 23337 09/12/2017 [id number] EST. PATIENT, LEVEL III Diagnosis: Other fatigue[ICD10: R53.83] Ruchi Carlos MD, [facility] CPT-4: 29562 09/09/2017 ([id number]) 08513 EST. P ATIENT, LEVEL IV Diagnosis: Slow transit constipation[ICD10: K59.01] Diagnosis: Irritable bowel syndrome with constipation[ICD10: K58.1] Diagnosis: Essential (primary) hypertension[ICD10: I10] Ale Carlos MD, [facility] CPT-4: 03087 08/17/2017 ([id number]) 43635 EST. P ATIENT, LEVEL III Diagnosis: Slow transit constipation[ICD10: K59.01] Diagnosis: Gastroparesis[ICD10: K31.84] Ale Carlos MD, [facility] CPT-4: 23787 07/20/2017 92720 EST. PATIENT, LEVEL III Diagnosis: Irritable bowel syndrome with constipation[ICD10: K58.1] Ruchi Carlos MD, [facility] CPT-4: 13699 07/01/2017 ([id number]) 71375 EST. P ATIENT, LEVEL IV Diagnosis: Essential (primary) hypertension[ICD10: I10] Diagnosis: Gas pain[ICD10: R14.1] Diagnosis: Generalized anxiety disorder[ICD10: F41.1] Diagnosis: Cervicalgia[ICD10: M54.2] Diagnosis: Pain in thoracic spine[ICD10: M54.6] Diagnosis: Unsteadiness on feet[ICD10: R26.81] Ale Carlos MD, [facility] CPT- 4: 65506 06/21/2017 ([id number]) 72822 EST. P ATIENT, LEVEL III Diagnosis: Essential (primary) hypertension[ICD10: I10] Ale Carlos MD, C CPT-4: 63082 03/21/2017 88525 EST. PATIENT, LEVEL III Diagnosis: Other allergic rhinitis[ICD10: J30.89] Nelly Carlos MD, [facility] CPT-4: 00549 03/08/2017 ([id number]) 19333 EST. P ATIENT, LEVEL III Diagnosis: Encounter for immunization[ICD10: Z23] Diagnosis: Other hypotension[ICD10: I95.89] Ale Carlos MD, [facility] CPT-4: 49763 01/25/2017 ([id number]) 32327 EST. P ATIENT, LEVEL III Diagnosis: Essential (primary) hypertension[ICD10: I10] Diagnosis: Acute recurrent maxillary sinusitis[ICD10: J01.01] Ale Carlos MD, C CPT-4: 39489 12/20/2016 ([id number]) 03447 EST. P ATIENT, LEVEL III Diagnosis: Acute recurrent ethmoidal sinusitis[ICD10: J01.21] Ale Carlos MD, C CPT-4: 21613 12/01/2016 ([id number]) 09369 EST. P ATIENT, LEVEL III Diagnosis: Bronchitis, not specified as acute or chronic[ICD10: J40] Diagnosis: Cough[ICD10: R05] Ale Carlos MD, [facility] CPT-4: 64635 11/25/2016 ([id number]) 43314 EST. P ATIENT, LEVEL III Diagnosis: Cough[ICD10: R05] Diagnosis: Bronchitis, not specified as acute or chronic[ICD10: J40] Diagnosis: Candidal esophagitis[ICD10: B37.81] Ale Carlos MD, [facility] CPT- 4: 83787 11/18/2016 ([id number]) 84726 EST. P ATIENT, LEVEL IV Diagnosis: Essential (primary) hypertension[ICD10: I10] Diagnosis: Mild cognitive impairment, so stated[ICD10: G31.84] Ale Carlos MD, [facility] CPT-4: 69101 08/23/2016 ([id number]) 30150 EST. P ATIENT, LEVEL III Diagnosis: Essential (primary) hypertension[ICD10: I10] Ale Carlos MD, [facility] CPT-4: 79548 04/26/2016 ([id number]) Miscellarinou s no charge Diagnosis: Olecranon bursitis, right elbow[ICD10: M70.21] Nelly Carlos MD, [facility] CPT-4: 57547 02/09/2016 ([id number]) 60550 EST. P ATIENT, LEVEL III Diagnosis: Olecranon bursitis, right elbow[ICD10: M70.21] Nelly Carlos MD, [facility] CPT-4: 52143 02/03/2016 ([id number]) 66099 EST. P ATIENT, LEVEL III Diagnosis: Generalized abdominal tenderness[ICD10: R10.817] Ale Carlos MD, C CPT-4: 80504 01/26/2016 64089 EST. PATIENT, LEVEL IV Diagnosis: Other allergic rhinitis[ICD10: J30.89] Ruchi Carlos MD, [facility] CPT-4: 92628 01/21/2016 ([id number]) 92147 EST. P ATIENT, LEVEL IV Diagnosis: Essential (primary) hypertension[ICD10: I10] Diagnosis: Hypo-osmolality and hyponatremia[ICD10: E87.1] Ale Carlos MD, [facility] CPT-4: 41882 12/29/2015 ([id number]) 91686 EST. P ATIENT, LEVEL IV Diagnosis: Essential (primary) hypertension[ICD10: I10] Diagnosis: Mild cognitive impairment, so stated[ICD10: G31.84] Ale Carlos MD, [facility] CPT-4: 30632 09/02/2015 ([id number]) 96197 EST. P ATIENT, LEVEL IV Diagnosis: Mixed hyperlipidemia[ICD10: E78.2] Diagnosis: Generalized anxiety disorder[ICD10: F41.1] Diagnosis: Mild cognitive impairment, so stated[ICD10: G31.84] Diagnosis: Essential (primary) hypertension[ICD10: I10] Diagnosis: Encounter for immunization[ICD10: Z23] Ale Carlos MD, [facility] CPT-4: 91360 05/06/2015 ([id number]) 73854 EST. 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 P ATIENT, LEVEL IV Diagnosis: ESSENTIAL HYPERTENSION[ICD9: 401.9] Diagnosis: GENERALIZED ANXIETY DISEASE[ICD9: 300.02] Diagnosis: MILD COGNITIVE IMPAIREMT[ICD9: 331.83] Diagnosis: IRRITABLE COLON[ICD9: 564.1] Ale Carlos MD, [facility] CPT-4: 06496 12/04/2014 ([id number]) 72723 EST. P ATIENT, LEVEL IV Diagnosis: Abdominal pain[ICD9: 789.00] Diagnosis: GENERALIZED ANXIETY DISEASE[ICD9: 300.02] Diagnosis: Hyponatremia[ICD9: 276.1] Diagnosis: ESSENTIAL HYPERTENSION[ICD9: 401.9] Nelly Carlos MD, [facility] CPT-4: 22764 09/24/2014 ([id number]) 58655 EST. P ATIENT, LEVEL IV Diagnosis: ESSENTIAL HYPERTENSION[ICD9: 401.9] Diagnosis: Osteoarthritis[ICD9: 715.90] Diagnosis: Mild cognitive impairment with memory loss[ICD9: 331.83] Ale Carlos MD, C CPT-4: 68191 09/09/2014 ([id number]) 80378 EST. P ATIENT, LEVEL III Diagnosis: GENERALIZED ANXIETY DISEASE[ICD9: 300.02] Diagnosis: Depression[ICD9: 311] Ale Carlos MD, [facility] CPT-4: 40384 07/26/2014 ([id number]) 51129 EST. P ATIENT, LEVEL IV Diagnosis: ESSENTIAL HYPERTENSION[ICD9: 401.9] Diagnosis: GENERALIZED ANXIETY DISEASE[ICD9: 300.02] Diagnosis: MILD COGNITIVE IMPAIREMT[ICD9: 331.83] Ale Carlos MD, [facility] CPT-4: 04000 07/10/2014 ([id number]) 71798 EST. P ATIENT, LEVEL IV Diagnosis: Dizziness[ICD9: 780.4] Diagnosis: GENERALIZED ANXIETY DISEASE[ICD9: 300.02] Diagnosis: Depression[ICD9: 311] Diagnosis: ESSENTIAL HYPERTENSION[ICD9: 401.9] Diagnosis: Urinary frequency[ICD9: 788.41] Ale Carlos MD, [facility] CPT-4: 26002 06/06/2014 ([id number]) 91085 EST. P ATIENT, LEVEL IV Diagnosis: ESSENTIAL HYPERTENSION[ICD9: 401.9] Diagnosis: GENERALIZED ANXIETY DISEASE[ICD9: 300.02] Diagnosis: Mild cognitive impairment with memory loss[ICD9: 331.83] Ale Carlos MD, [facility] CPT-4: 41655 05/29/2014 ([id number]) 77695 EST. P ATIENT, LEVEL IV Diagnosis: Pneumonia[ICD9: 486] Diagnosis: COUGH[ICD9: 786.2] Diagnosis: Hyponatremia[ICD9: 276.1] Diagnosis: ALLERGIC RHINITIS[ICD9: 477.9] Ale Carlos MD, [facility] CPT-4: 56446 05/20/2014 ([id number]) 74103 EST. P ATIENT, LEVEL III Diagnosis: ESSENTIAL HYPERTENSION[ICD9: 401.9] Diagnosis: Cough[ICD9: 786.2] Ale Carlos MD, [facility] CPT-4: 74547 03/25/2014 ([id number]) 92131 EST. P ATIENT, LEVEL III Diagnosis: COUGH[ICD9: 786.2] Diagnosis: ALLERGIC RHINITIS[ICD9: 477.9] Nelly Carlos MD, [facility] CPT- 4: 04415 02/08/2014 ([id number]) 41397 EST. P ATIENT, LEVEL III Diagnosis: ESSENTIAL HYPERTENSION[ICD9: 401.9] Diagnosis: Nasal congestion[ICD9: 478.19] Ale Carlos MD, [facility] CPT-4: 70702 12/24/2013 ([id number]) 90702 EST. P ATIENT, LEVEL III Diagnosis: Seasonal allergies[ICD9: 477.9] Diagnosis: Nasal congestion[ICD9: 478.19] Diagnosis: ABNORMAL LOSS OF WEIGHT[ICD9: 783.21] Ale Carlos MD, [facility] CPT-4: 09009 11/20/2013 ([id number]) 87107 EST. P ATIENT, LEVEL III Diagnosis: ABNORMAL LOSS OF WEIGHT[ICD9: 783.21] Diagnosis: MALAISE AND FATIGUE[ICD9: 780.79] Diagnosis: Hyponatremia[ICD9: 276.1] Nelly Carlos MD, [facility] CPT- 4: 14623 10/30/2013 ([id number]) 40447 EST. P ATIENT, LEVEL III Diagnosis: Acute maxillary sinusitis[ICD9: 461.0] Diagnosis: COUGH[ICD9: 786.2] Ale Carlos MD, [facility] CPT-4: 78085 10/08/2013 ([id number]) 79659 EST. P ATIENT, LEVEL IV Diagnosis: ESSENTIAL HYPERTENSION[SNOMED: 96137011] Diagnosis: GENERALIZED ANXIETY DISEASE[ICD9: 300.02] Diagnosis: OSTEOARTH NOS-UNSPEC[ICD9: 715.90] Diagnosis: Coronary artery disease[ICD9: 414.00] Ale Carlos MD, [facility] CPT-4: 57616 06/18/2013 ([id number]) 72705 EST. P ATIENT, LEVEL III Diagnosis: ESSENTIAL HYPERTENSION[SNOMED: 72199096] Ale Carlos MD, [facility] CPT-4: 55130 04/04/2013 ([id number]) 33961 EST. P ATIENT, LEVEL IV Diagnosis: ESSENTIAL HYPERTENSION[SNOMED: 88488034] Diagnosis: Leukopenia[ICD9: 288.50] Diagnosis: Encounter for long-term (current) use of other medications[ICD9: V58.69] Ale Carlos MD, [facility] CPT-4: 40177 02/19/2013 ([id number]) 22394 EST. P ATIENT, LEVEL IV Diagnosis: ESSENTIAL HYPERTENSION[SNOMED: 20050785] Diagnosis: MILD COGNITIVE IMPAIREMT[ICD9: 331.83] Ale Carlos MD, [facility] CPT-4: 59996 10/16/2012 ([id number]) 12971 EST. P ATIENT, LEVEL IV Diagnosis: ESSENTIAL HYPERTENSION[SNOMED: 31953085] Diagnosis: GENERALIZED ANXIETY DISEASE[ICD9: 300.02] Diagnosis: IRRITABLE COLON[ICD9: 564.1] Ale Carlos MD, [facility] CPT-4: 52163 03/20/2012 00064 EST. PATIENT, LEVEL IV Diagnosis: ESSENTIAL HYPERTENSION[SNOMED: 65849624] Diagnosis: Osteoarthritis[ICD9: 715.90] Diagnosis: HYPERLIPIDEMIA[ICD9: 272.4] Ale Carlos MD, [facility] CPT-4: 27033 01/24/2012 21126 EST. PATIENT, LEVEL IV Diagnosis: ESSENTIAL HYPERTENSION[SNOMED: 93887158] Diagnosis: BPH W URINARY OBS/LUTS[ICD9: 600.01] [facility] CPT-4: 41157 12/20/2011 ([id number]) 67061 EST. P ATIENT, LEVEL III Diagnosis: Lump in the groin[ICD9: 789.30] [facility] CPT-4: 07516 12/09/2011 ([id number]) 92601 EST. P ATIENT, LEVEL IV Diagnosis: ESSENTIAL HYPERTENSION[SNOMED: 45825515] Diagnosis: Mild cognitive impairment[ICD9: 331.83] Ale Carlos MD, [facility] CPT-4: 69906 08/25/2011 ([id number]) 80856 EST. P ATIENT, LEVEL IV Diagnosis: ESSENTIAL HYPERTENSION[SNOMED: 11910737] Diagnosis: GENERALIZED ANXIETY DISEASE[ICD9: 300.02] Diagnosis: MILD COGNITIVE IMPAIREMT[ICD9: 331.83] Diagnosis: IRRITABLE COLON[ICD9: 564.1] Ale Carlos MD, [facility] CPT-4: 30237 06/23/2011 ([id number]) 03615 EST. 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 PATIENT, LEVEL I Diagnosis: ESSENTIAL HYPERTENSION[SNOMED: 95801475] Ale Carlos MD, [facility] CPT-4: 18305 03/23/2011 46725 EST. PATIENT, LEVEL III Diagnosis: ESSENTIAL HYPERTENSION[SNOMED: 57376776] Diagnosis: Laceration of finger, index[ICD9: 883.0] Ale Carlos MD, [facility] CPT-4: 22298 03/08/2011 77179 EST. PATIENT, LEVEL III Diagnosis: ESSENTIAL HYPERTENSION[SNOMED: 67819982] Diagnosis: Irritable bowel syndrome (IBS)[ICD9: 564.1] Ale Carlos MD, [facility] CPT-4: 17400 03/01/2011 37973 EST. PATIENT, LEVEL IV Diagnosis: Mild cognitive impairment with memory loss[ICD9: 331.83] Diagnosis: GENERALIZED ANXIETY DISEASE[ICD9: 300.02] Diagnosis: Bruising[ICD9: 924.9] Diagnosis: HYDROCELE[ICD9: 603.9] Ale Carlos MD, [facility] CPT-4: 91153 02/01/2011 14605 EST. PATIENT, LEVEL III Diagnosis: Testicular pain[ICD9: 608.9] Diagnosis: GENERALIZED ANXIETY DISEASE[ICD9: 300.02] Nelly Carlos MD, [facility] CPT-4: 85476 01/27/2011 73654 EST. PATIENT, LEVEL III Diagnosis: Arm bruise[ICD9: 923.9] [facility] CPT-4: 53820 01/26/2011 OFFICE VISIT, NEW - LEVEL 4 Diagnosis: DIARRHEA[ICD9: 787.91] Diagnosis: Elevated liver function tests[ICD9: 790.6] Diagnosis: Abdominal discomfort[ICD9: 789.00] Ale Carlos MD, [facility] CPT- 4: 47511 01/06/2011 Plan of Care Planned Activity Notes [...] this medication. 08/17/2018 Appointment: Ale Carlos WPtel: [address] [place], [place] [address] (15 min) Moderate 08/17/2018 Patient Education: Patient [...] nail debridement. 05/18/2018 Appointment: Ale Carlos WPtel: [facility]2 [facility] (15 min) Moderate 05/18/2018 Patient Education: [...] mouth discomfort. 04/13/2018 Appointment: Ale Carlos WPtel: [facility] (30 min) Complex 04/13/2018 Patient Education: [...] GI upset. 02/08/2018 Appointment: Ale Carlos WPtel: [facility] (30 min) Complex 02/08/2018 Patient Education: Patient Medication Summary Completed 02/08/2018 Patient Education: Hypertension Completed 02/08/2018 Appointment: Nelly Keen WPtel: [facility]3 [phone] (15 min) Moderate 02/02/2018 Visit Plan: Lctomtvlcfyp-afzentq-br start trulance 3mg daily Dry mouth-biotene mouth spray 01/19/2018 Appointment: Ale Carlos WPtel: [phone] [facility] (30 min) Complex 01/19/2018 Patient Education: [...] concerns 01/12/2018 Appointment: Nelly Keen WPtel: [phone] [phone] (15 min) Moderate 01/12/2018 Patient Education: [...] be helping his symptoms. 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 I have recommended that he is to eat 1/2 a sandwich with his ensure at bedtime. 01/05/2018 Appointment: Ale Carlos WPtel: [phone] [facility] (15 min) Moderate 01/05/2018 Patient Education: Patient Medication Summary Completed 01/05/2018 Appointment: [phone] (30 min) Complex 01/04/2018 Visit Plan: [...] 11/03/2017 Care Plan: Referral Order SNOMED-CT : 117862540 Pending 10/28/2017 Visit Plan: Constipation - uncontro [...] improving. 2017 [phone] ([facility] Moderate 2017 Patient Education: [...] portion size. 10/13/2017 Appointment: Ale Carlos [facility]Ptel[phone] (30 min) Complex 10/13/2017 Patient Education: [...] the medication. 09/26/2017 Appointment: Ale [facility]Ptel[phone] (15 min) Moderate 09/26/2017 Patient Education: Patient Medication Summary Completed 09/26/2017 Appointment: Ale Carlos WPtel: [facility]5 [facility] (30 min) Complex 09/14/2017 Visit Plan: Constipation [...] the ER. 09/12/2017 Appointment: Ale Carlos WPtel: [facility]8 [facility] (30 min) Complex 09/12/2017 Patient Education: Patient Medication Summary Completed 09/12/2017 Visit Plan: Ongoing fatigue - persi stent - will check labs and treat as indicated - pt is to notify clinic if symptoms do not improve, if they worsen, or with any changes, questions, or concerns. 09/09/2017 Appointment: Ruchi Agee WPtel: [facility] ([facility] min) Complex 09/09/2017 Patient Education: [...] at home. 08/17/2017 Appointment: Ale Carlos [facility]Ptel[phone] (15 min) Moderate 08/17/2017 Patient Education: [...] regular foods. 07/20/2017 Appointment: Ale Carlos WPtel: [facility]5 [facility] [place] (30 min) Complex 07/20/2017 Appointment: Ale Carlos WPtel: [facility]5 [facility] [place] (30 min) Complex 07/20/2017 Patient Education: Patient Medication Summary Completed 07/20/2017 Appointment: Ale Carlos WPtel: [facility]5 [facility] [place] (30 min) Complex 07/19/2017 Appointment: Ale Carlos WPtel: [facility]5 [facility] [place] (15 min) Moderate 07/18/2017 Visit Plan: [...] this regimen. 07/01/2017 Appointment: Ruchi Agee WPtel: [facility]6 [facility] [place] (30 min) Complex 07/01/2017 Appointment: Ruchi Agee WPtel: [facility]5 [facility] [place] (30 min) Complex 07/01/2017 Patient Education: Patient Medication Summary Completed 07/01/2017 Visit Plan: Neck and upper back reji n and gait unsteadiness - referral to Ul[facility] castañeda for upper and low back pain and left arm pain and have gait eval. get Aspercreme from [employer] for your upper neck/upper back. Abdominal upset/cramping - lactaid pills - take before you drink milk or eat cheese or ice cream or yogurt use gas-ex one pill three times daily Chronic anxiety - stable - continue with current management. 06/21/2017 Appointment: Ale Carlos WPtel: [facility]6 [facility] (30 min) Complex 06/21/2017 Patient Education: [...] home. 03/21/2017 Appointment: Ale Carlos WPtel: [phone] [facility] (30 min) Complex 03/21/2017 Patient Education: [...] allergy spray. 03/08/2017 Appointment: Nelly Keen WPtel: [facility]9 [phone] [place] (30 min) Complex 03/08/2017 Patient [...] flu shot 01/25/2017 Appointment: Ale Carlos WPtel: [facility]4 [facility] (30 min) Complex 01/25/2017 Patient Education: [...] not improving. 12/20/2016 Appointment: Ale Carlos WPtel: [facility]0 [facility] (30 min) Complex 12/20/2016 Patient Education: Patient Medication Summary Completed 12/20/2016 Patient Education: Hypertension Completed 12/20/2016 Appointment: Ruchi Agee WPtel: [facility]8 [facility] [place] [address] - Annual Wellness Visit 12/03/2016 Visit Plan: [...] acutely worsen. 11/25/2016 Appointment: Ale Carlos WPtel: [address] [place], [place] [phone] (15 min) Moderate 11/25/2016 Patient Education: [...] have thrush. 11/18/2016 Appointment: Ale Carlos WPtel: [facility] [address] (15 min) Moderate 11/18/2016 Patient Education: [...] namenda. [place] be done [place] [facility] 08/23/2016 Appointment: Ale Carlos WPtel: [facility]5 [facility] [place] (30 min) Complex 08/23/2016 Patient Education: [...] at home. 04/26/2016 Appointment: Ale Carlos WPtel: [facility] [place] (30 min) Complex 04/26/2016 Patient Education: Patient Medication Summary Completed 04/26/2016 Visit Plan: Joint effusion - recomm ended drainage and referral to orthopedic surgeon for surgical debridement of bursa 02/17/2016 Appointment: Ale Carlos WPtel: [facility]9 [facility] [place] (30 min) Complex 02/17/2016 Patient Education: Patient Medication Summary Completed 02/17/2016 Visit Plan: Bursitis-right elbow-dr healy today in the office- increase anti inflammatories for the next 5 days as directed-call if symptoms do not resolve, swelling returns or new symptoms develop-patient verbalized understanding of plan. 02/09/2016 Appointment: Nelly Keen WPtel: [facility]4 [phone] [place] (30 min) Complex 02/09/2016 Patient Education: Patient Medication Summary Completed 02/09/2016 Patient Education: Patient Medication Summary Completed 02/05/2016 Care Plan: Metabolic Pending 02/05/2016 Visit Plan: Bursitis-right elbow-dr healy today in the office- increase anti inflammatories for the next 5 days as directed-call if symptoms do not resolve, swelling returns or new symptoms develop-patient verbalized understanding of plan. 02/03/2016 Appointment: Nelly Keen WPtel: [facility]4 [phone] (30 min) Complex 02/03/2016 Patient Education: Patient Medication Summary Completed 02/03/2016 Patient Education: Patient Medication Summary Completed 01/30/2016 Care Plan: Metabolic Due on Pending 01/30/2016 Visit Plan: Abdominal pain - nausea - Pt to have IV fluids at hospital 01/26/2016 Appointment: Ale Carlos WPtel: [facility]4 [facility]66[facility] (30 min) Complex 01/26/2016 Patient Education: Patient [...] allergy spray. 01/21/2016 Appointment: Nelly Keen WPtel: [facility]5 [phone] (30 min) Complex 01/21/2016 Patient Education: [...] treatment. 09/02/2015 Appointment: Ale Carlos WPtel: [phone] [facility] (15 min) Moderate 09/02/2015 Patient Education: Patient [...] today 05/06/2015 Appointment: Ale Carlos WPtel: [phone] [facility] (15 min) Moderate 05/06/2015 Patient Education: Patient Medication Summary Completed 05/06/2015 Patient Education: Hypertension Completed 05/06/2015 Care Plan: COMPLETE CBC AUTOMATED LOINC : 01038-1 Ordered 05/06/2015 Visit Plan: Hypertension - well [...] medications. 03/05/2015 Appointment: Ale Carlos WPtel: [phone] [facility] (30 min) Complex 03/05/2015 Patient Education: [...] improved. 12/04/2014 Appointment: Ale Carlos [facility]Ptel: [phone] [facility] Follow up 12/04/2014 Patient Education: Patient [...] ABD & PELV 1/> REGNS LOINC : 53528-7 Ordered 09/24/2014 Visit Plan: Hypertension - well [...] THAT HE SHOULD NOT BE DRIVING TO [place] 07/26/2014 Appointment: Sick 07/26/2014 Appointment: Sick 07/26/2014 [...] not include a medication list. 07/10/2014 Appointment: lAe Carlos WPtel: [facility]5 [facility] Follow up 07/10/2014 Patient Education: Patient Medication Summary Completed 07/10/2014 Patient Education: Hypertension Completed 07/10/2014 Appointment: Ale Carlos WPtel: [facility]5 [facility] Follow up 06/20/2014 Appointment: Ale Carlos WPtel: [address] [place], [place] [phone] Follow up 06/10/2014 Visit Plan: Anxiety and [...] in blood pressure readings at home. Urinary fhecztptb-KPU-avdecj flomax to bedtime Dizziness-stop hydrocodone and ativan [...] THE SIMVASTATIN X 3 WEEKS 05/29/2014 Appointment: Ael Carlos WPtel: [address] [place] [phone] Sick 05/29/2014 Patient Education: Patient Medication Summary Completed 05/29/2014 Patient Education: Hypertension Completed 05/29/2014 Appointment: Ale Carlos WPtel: [address] [place] [phone] Lab Draw 05/23/2014 Patient Education: Patient Medication Summary Completed 05/23/2014 Visit Plan: Pneumonia - Pt has been diagnosed with pneumonia by physical exam. A chest xray has been ordered as have antibiotics. The pt is aware of the diagnosis and the need for acute treatment of this illness. A wzmwavfr-eiihr-uzzfgug flonase nasal spray Hyponatremia-increase gatorade as directed [...] for acute treatment of this illness. A tqkymmox-odbgx-nreozou flonase nasal spray Hyponatremia-increase gatorade as directed 05/20/2014 Patient Education: Patient Medication Summary Completed 05/20/2014 Appointment: Ale Carlos WPtel: [facility]5 [facility] Injection 03/26/2014 Patient Education: Patient Medication [...] Dr. Merlos. 03/25/2014 Appointment: Ale Carlos WPtel: [address] [place], [place] [address] Follow up 03/25/2014 Patient Education: Patient Medication Summary Completed 03/25/2014 Patient Education: Hypertension Completed 03/25/2014 Visit Plan: Fbiot-vpezayila-splcsbl laryngeal reflux-RX for protonix (patient is on [...] at home. 12/24/2013 Appointment: Ale Carlos WPtel: [facility]5 [facility] Follow up 12/24/2013 Patient Education: Patient [...] portion size. 11/20/2013 Appointment: Ale Carlos WPtel: [address] [place] [phone] Follow up 11/20/2013 Patient Education: Patient Medication Summary Completed 11/20/2013 Appointment: Ale Carlos WPtel: [address] [place] [address] [place] Follow up 11/06/2013 Visit Plan: Weight loss-increase po rtions-add snacks in the morning and afternoon-follow up in 3 weeks for weight check Low sodium-check labs-restart gatorade Wtiabdh-eoxkki-djqik labs and UA 10/30/2013 Patient Education: Patient Medication Summary Completed 10/30/2013 Appointment: Ale Carlos WPtel: [address] [place] [phone] Follow up 10/16/2013 Visit Plan: Sinusitis - [...] with treatment per Dr. Merlos. 06/18/2013 Appointment: Ael Carlos WPtel: [phone] [facility] Follow up 06/18/2013 Patient Education: Patient [...] concerns. 04/04/2013 Appointment: [phone] Follow up 04/04/2013 Patient Education: Patient [...] with report. 02/19/2013 Appointment: Ale Carlos WPtel: [phone] [facility] [place] Follow up 02/19/2013 Patient Education: Patient [...] loss. 10/16/2012 Appointment: Ale Carlos WPtel: [phone] [facility] Follow up 10/16/2012 Patient Education: Patient [...] return. 06/19/2012 Appointment: Ale Carlos WPtel: [phone] [facility] [place] Follow up 06/19/2012 Patient Education: Patient Medication [...] the bentyl. 03/20/2012 Appointment: Ale Carlos WPtel: [facility] Follow up 03/20/2012 Patient Education: Patient Medication Summary Completed 03/20/2012 Patient Education: High Blood Pressure: Essential Hypertension Completed 03/20/2012 Appointment: Ale Carlos WPtel: [address] [place], [place] [address] [place] Follow up 02/22/2012 Visit Plan: Hypertension [...] as needed. 01/24/2012 Appointment: Ale Carlos WPtel: [facility] Follow up 01/24/2012 Patient Education: Patient [...] have the biopsy until okayed by his eligibility consultant.. I anticipate it will be at least 4-6 months before he can be off of the plavix and aspirin for additonal procedures unless it is of extreme urgency. 12/20/2011 Appointment: Ale Carlos WPtel: [facility]5 [facility] Follow up 12/20/2011 Patient Education: Patient Medication Summary Completed 12/20/2011 Patient Education: High Blood Pressure: Essential Hypertension Completed 12/20/2011 Appointment: Ale Carlos WPtel: [facility] Other 12/13/2011 Visit Plan: Pain in groin post hear t cath with increased discomfort and increased size - will order an ultrasound for today. 12/09/2011 Appointment: Ale Carlos WPtel: [facility] Other 12/09/2011 Patient Education: Patient Medication [...] either medication. 08/25/2011 Appointment: Ale Carlos WPtel: [address] [place] [address] Other 08/25/2011 Patient Education: Patient Medication Summary [...] low doses. 06/23/2011 Appointment: Ale Carlos WPtel: [address] [place] [address] Other 06/23/2011 Patient Education: Patient Medication Summary Completed 06/23/2011 Patient Education: High Blood Pressure: Essential Hypertension Completed 06/23/2011 Appointment: Ale Carlos WPtel: [address] [place], [place] [id number] Other 04/26/2011 Visit Plan: Hypertension - well [...] etc. 04/19/2011 Appointment: Ale Carlos WPtel: [phone] [facility] Other 04/19/2011 Patient Education: Patient Medication Summary Completed 04/19/2011 Patient Education: High Blood Pressure: Essential Hypertension Completed 04/19/2011 Patient Education: Diverticulosis Diet Completed 04/19/2011 Appointment: Nelly Keen WPtel: [facility]5 [phone] Other 03/23/2011 Patient Education: Patient Medication Summary Completed 03/23/2011 Patient Education: High Blood Pressure: Essential Hypertension Completed 03/23/2011 Visit Plan: Record blood pressure a nd heart rate at home and drop the readings by the office in two weeks. No change in medications today. Laceration - removed suture today - pt to call if any complications arise. 03/08/2011 Appointment: Ale Carlos WPtel: [facility]5 [facility] Other 03/08/2011 Patient Education: Patient Medication Summary [...] day. 03/01/2011 Appointment: Ale Carlos WPtel: [phone] [facility] [place] Other 03/01/2011 Patient Education: Patient Medication Summary Completed 03/01/2011 Patient Education: High Blood Pressure: Essential Hypertension Completed 03/01/2011 Appointment: [phone] [place] Injection 02/25/2011 Patient Education: Patient Medication Summary Completed 02/25/2011 Appointment: Ale Carlos WPtel: [phone] [facility] [place] Injection 02/16/2011 Patient Education: Patient Medication Summary Completed 02/16/2011 Appointment: Ale Carlos WPtel: [phone] [facility] [place] Injection 02/09/2011 Patient Education: Patient Medication Summary Completed 02/09/2011 Appointment: Ale Carlos WPtel: [facility]5 [facility] [place] Follow up 02/02/2011 Visit Plan: [...] Kenji Dash in [place]. Upon our conversation [id number]-[id number], Kenji vocalized concerns for his Dad's memory. He stated that he has noticed his father not being as quick in his cognitive functioning, he has noticed some concerns with driving as well. He states that he will discuss these concerns with his parents and other siblings. 02/01/2011 Appointment: Ale Carlos WPtel: [address] [place] [address] Other 02/01/2011 Patient Education: Patient Medication Summary [...] as needed. 01/27/2011 Appointment: Ale Carlos WPtel: [address] [place] [address] [place] New Patient 01/27/2011 Patient Education: Patient Medication Summary Completed 01/27/2011 Visit Plan: Bruising/hematoma left arm-discussed natural and expected course of this diagnosis and to alert me if symptoms do not follow expected course or if any worse, Continue with ice/heat as needed for disc omfort. Call for any concerns. 01/26/2011 Appointment: Nelly Keen WPtel: [address] [place] [address] Other 01/26/2011 Patient Education: Patient Medication Summary [...] full course. 01/15/2011 Appointment: Nelly Keen WPtel: [facility]5 [place] [address] [place] Other 01/15/2011 Patient Education: Patient Medication [...] free diet. 01/06/2011 Appointment: Ale Carlos WPtel: [facility]5 [facility] [place] New Patient 01/06/2011 Patient Education: Patient Medication Summary Completed 01/06/2011 Referral: External, Ordering Provider Referral Relationship Instructions Comment . Pneumonia - Pt has been diagnosed with pneumonia by physical exam. A chest xray has been ordered as have antibiotics. The pt is aware of the diagnosis and the need for acute treatment of this illness. Jmmzzwrzz-qkwky-yrpvmcr flonase nasal spray Hyponatremia-increase gatorade as directed [...] need for acute treatment of this illness. Txzijeutg-ksvsd-txqfbuc flonase nasal spray Hyponatremia-increase gatorade as directed [...] for weight check Low sodium-check labs-restart gatorade Ucrrrrc-jcunby-jpeax labs and UA . Hypertension and C [...] have the biopsy until okayed by his eligibility consultant.. I anticipate it will be at least [...] be helping his symptoms. 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 I have recommended that he is [...] twice HTN-well controlled-no change in treatment . Bvswl-ntonhzvjo-va spect laryngeal reflux-RX for protonix (patient is [...] IN THE EVENING OF 01/15/11 Appointment [address] [place] [address] Carlos. Recommend Lactobacillus 1 orally [...] Kenji Dash in [place]. Upon our conversation [id number]-kohlb, Kenji vocalized concerns for his Dad's memory. He stated that he has noticed his father not being as quick in his cognitive functioning, he has noticed some concerns with driving as well. He states that he will discuss these concerns with his parents and other siblings. stop losartan - [facility] k blood pressure and heart rate [...] spray -it is over the counter . Lwzrlphqydta-rydccfc-mjoqont trulance 3mg daily Dry mouth-biotene mouth spray [...] THAT HE SHOULD NOT BE DRIVING TO [place] Pt is to try 1/2 pil l [...] in blood pressure readings at home. Urinary bvzmvcoyw-SNC-rtnzsi flomax to bedtime Dizziness-stop hydrocodone and ativan [...]
--- OUTSIDE RECORDS SUMMARY | 2019-07-16 07:49 | XMS REPORT | CCD ---
Author Author Kenneth Carlos Organization Ale Carlos MD, [facility] Address [address] [place] [address] Phone Care Team Providers Care Prevention Coordinator Name Role Phone Ale Carlos PP Unavailable CCM Unavailable Summary Purpose Interface Exchange Insurance Providers Payer name Policy type / Coverage type Covered constitution party ID Effective Begin Date Effective End Date WPS Medicare Part B Medicare Part B [id number] Unknown Unknown [facility] icare Part B [id number] Unknown Unk nown Family history Runs in the family Diagnosis Age At Onset No Family Disease Entered N/A Mother Diagnosis Age At Onset No Family Disease Entered N/A Father Diagnosis Age At Onset Heart disease Unknown Social History Social History Element Codes Description Effective Dates Number of children Unknown 3 ([place], [place], [place]) 10/14/19 18 Living arrangements Unknown House 01/11/2011 Number of adults in household Unknown 2 01/11/2011 Education level Unknown Post-Graduate PHD in chemistry 01/11/2011 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9 03/04/2015 Active Underweight ICD-9: 783.22 ICD-10: R63.6 10/13/2017 [...] Instructions clopidogrel 75 mg ta blet RxNorm: 507531 TAKE 1 TABLET BY MOUT H EVERY DAY 08/14/2018 02/09/2019 Ac tive amlodipine 10 mg tablet RxNorm: 534912 TAKE 1 TABLET BY MOUTH EVERY DAY 07/14/2018 07/23/2018 In active clopidogrel 75 mg ta blet RxNorm: 665165 TAKE 1 TABLET BY MOUT H EVERY DAY 06/23/2018 12/19/2018 Ac tive Zantac 150 mg tablet RxNorm: 563902 1 TABLET(S) PO QAM 06/12/2018 01/07/2019 Active lisinopril 20 mg tablet RxNorm: 355020 TAKE 1 TABLET DAILY 06/05/2018 07/23/2018 Inactive triamterene 37.5 mg- hydrochlorothiazide 25 mg tablet RxNorm: 721778 1 Tablet(s) PO daily 05/18/2018 12/13/2018 Active cetirizine 10 mg tablet RxNorm: 1150775 TABLET(S) 1 TABLET(S) PO DAILY TO TAKE I NSTEAD OF THE CLARITIN 03/13/2018 02/05/2019 Active amlodipine 10 mg tablet RxNorm: 406590 TAKE 1 TABLET BY MOUTH EVERY DAY 03/09/2018 07/23/2018 In active fluticasone 50 mcg/a ctuation nasal spray,suspension RxNorm: 0601339 1 [place] NASAL BID 02/08/2018 No Stop Date Active fluticasone 50 mcg/a ctuation nasal spray,suspension RxNorm: 2708648 1 [place] NASAL BID 02/08/2018 02/07/2018 Inactive Trulance 3 mg tablet RxNorm: 0099940 1 Tablet(s) PO QAM 01/19/2018 07/17/2018 Inactive cefdinir 300 mg capsule RxNorm: 330968 1 Capsule(s) PO BID 12/28/2017 01/03/2018 Inactive cefdinir 300 mg capsule RxNorm: 244409 1 Capsule(s) PO BID 12/28/2017 12/27/2017 Inactive clopidogrel 75 mg ta blet RxNorm: 761487 TAKE 1 TABLET BY MOUT H EVERY DAY 12/26/2017 06/22/2018 In active Namenda 10 mg tablet RxNorm: 828786 Tablet(s) TAKE 1 TABLET BY MOUTH TWICE D AILY. 12/15/2017 No Stop Date Active Robinul 1 mg tablet RxNorm: 478146 1/2 Tablet(s) PO AC & HS 12/12/2017 12/14/2017 Inactive Robinul 1 mg tablet RxNorm: 656515 1/2 Tablet(s) PO AC & HS 12/12/2017 12/11/2017 Inactive donepezil 10 mg tablet RxNorm: 000272 1 TABLET(S) PO DAILY TAKE 1 TABLET BY MO UTH ONCE DAILY 12/08/2017 12/11/2017 Inactive Patient requests 90 days supply lisinopril 20 mg tablet RxNorm: 700292 TAKE 1 TABLET DAILY 12/05/2017 01/11/2018 Inactive Cymbalta 30 mg capsu le,delayed release RxNorm: 303777 1 Capsule(s) PO daily 12/05/2017 12/04/2017 In active Cymbalta 30 mg capsu le,delayed release RxNorm: 450102 1 Capsule(s) PO daily 12/05/2017 12/05/2017 In active Trulance 3 mg tablet RxNorm: 4912770 1 Tablet(s) PO daily 11/14/2017 12/13/2017 Inactive Linzess 145 mcg capsule RxNorm: 7081957 1 Capsule(s) PO daily 10/28/2017 12/14/2017 Inactive Zantac 150 mg tablet RxNorm: 351508 1 Tablet(s) PO QAM 10/13/2017 01/04/2018 Inactive mirtazapine 15 mg ta blet RxNorm: 258557 TAKE ONE TABLET BY MO UTH EVERY DAY 09/29/2017 09/23/2018 Ac tive Mobic 15 mg tablet RxNorm: 373916 1/2 TABLET(S) DAILY 09/26/2017 12/19/2017 Inactive lisinopril 20 mg tablet RxNorm: 154346 1/2 Tablet(s) daily 09/13/2017 01/12/2018 Inactive amlodipine 10 mg tablet RxNorm: 097918 TAKE 1 TABLET BY MOUTH EVERY DAY 09/09/2017 08/07/2018 In active Reglan 5 mg tablet RxNorm: 184218 1/2 Tablet(s) PO TID may increase up to a full pill three times daily as needed for poor GI motility 07/20/2017 09/17/2017 Inactive Protonix 40 mg table t,delayed release RxNorm: 155389 1 Tablet(s) PO daily 07/04/2017 01/29/2018 In active clopidogrel 75 mg ta blet RxNorm: 618691 TAKE 1 TABLET BY MOUT H EVERY DAY 06/20/2017 12/16/2017 In active cetirizine 10 mg tablet RxNorm: 0314604 TABLET(S) 1 TABLET(S) PO DAILY TO TAKE I NSTEAD OF THE CLARITIN 06/06/2017 03/12/2018 Inactive lisinopril 20 mg tablet RxNorm: 122886 TAKE 1 TABLET DAILY 05/30/2017 09/12/2017 Inactive Mobic 15 mg tablet RxNorm: 545986 1/2 TABLET(S) DAILY 03/21/2017 09/16/2017 Inactive donepezil 10 mg tablet RxNorm: 303127 1 Tablet(s) PO daily TAKE 1 TABLET BY MO UTH ONCE DAILY 02/28/2017 11/24/2017 Inactive Patient requests 90 days supply Requip 0.25 mg tablet RxNorm: 107039 1 TABLET(S) PO BID 01/24/2017 01/04/2018 Inactive Patient requests 90 days supply clopidogrel 75 mg ta blet RxNorm: 416399 TAKE 1 TABLET BY MOUT H EVERY DAY 12/23/2016 06/19/2017 In active lisinopril 20 mg tablet RxNorm: 307945 TAKE 1 TABLET DAILY 11/26/2016 05/24/2017 Inactive Kenalog 40 mg/mL hugo pension for injection RxNorm: 7822001 Milliliter(s) Inj 11/25/2016 11/25/2016 In active cefdinir 300 mg capsule RxNorm: 911106 1 Capsule(s) PO BID 11/23/2016 11/27/2016 Inactive cefdinir 300 mg capsule RxNorm: 181005 1 Capsule(s) PO BID 11/23/2016 11/22/2016 Inactive nystatin 100,000 uni t/mL oral suspension RxNorm: 805967 5 Milliliter(s) PO QI D 11/18/2016 11/27/2016 In active azithromycin 250 mg tablet RxNorm: 654653 1 Tablet(s) PO UD 2 p ills on day #1 then one pill daily x 4 more days 11/18/2016 11/22/2016 Inactive Mobic 15 mg tablet RxNorm: 711302 1/2 TABLET(S) DAILY 10/28/2016 03/20/2017 Inactive citalopram 10 mg tablet RxNorm: 980385 TAKE 1 TABLET BY MOUTH EVERY DAY 10/07/2016 03/05/2017 In active Patient requests 90 days supply mirtazapine 15 mg ta blet RxNorm: 749865 TAKE ONE TABLET BY MO UTH EVERY DAY 10/06/2016 09/28/2017 In active mirtazapine 15 mg ta blet RxNorm: 420744 TAKE ONE TABLET BY MO UTH EVERY DAY 10/05/2016 10/05/2016 In active Patient requests 90 days supply amlodipine 10 mg tablet RxNorm: 284996 TAKE 1 TABLET BY MOUTH EVERY DAY 09/14/2016 01/24/2017 In active clopidogrel 75 mg ta blet RxNorm: 662595 TAKE 1 TABLET BY MOUT H EVERY DAY 06/28/2016 12/22/2016 In active lisinopril 20 mg tablet RxNorm: 820237 TAKE 1 TABLET DAILY 05/31/2016 11/25/2016 Inactive donepezil 10 mg tablet RxNorm: 576160 TAKE 1 TABLET BY MOUTH ONCE DAILY 05/11/2016 11/06/2016 In active donepezil 10 mg tablet RxNorm: 344097 TAKE 1 TABLET BY MOUTH ONCE DAILY 04/26/2016 02/28/2017 In active Mobic 15 mg tablet RxNorm: 789041 1/2 Tablet(s) daily 04/19/2016 10/15/2016 Inactive citalopram 10 mg tablet RxNorm: 188585 TAKE 1 TABLET BY MOUTH EVERY DAY 04/06/2016 04/25/2016 In active cetirizine 10 mg tablet RxNorm: 9303749 Tablet(s) 1 TABLET(S) PO DAILY TO TAKE I NSTEAD OF THE CLARITIN 03/30/2016 02/22/2017 Inactive amlodipine 10 mg tablet RxNorm: 164143 TAKE 1 TABLET BY MOUTH EVERY DAY 03/08/2016 01/24/2017 In active amlodipine 10 mg tablet RxNorm: 267810 1 Tablet(s) PO daily TAKE 1 TABLET BY MO UT ONCE DAILY 03/03/2016 03/07/2016 Inactive Requip 0.25 mg tablet RxNorm: 818086 1 Tablet(s) PO BID 03/03/2016 09/13/2016 Inactive Mobic 15 mg tablet RxNorm: 316060 1 Tablet(s) daily not refilled on a 02/23/2016 04/18/2016 In active cetirizine 10 mg tablet RxNorm: 6795258 1 TABLET(S) PO DAILY TO TAKE INSTEAD OF THE CLARITIN 02/19/2016 03/19/2016 Inactive lisinopril 20 mg tablet RxNorm: 928265 TAKE 1 TABLET DAILY 02/18/2016 05/17/2016 Inactive Namenda 10 mg tablet RxNorm: 846482 Tablet(s) TAKE 1 TABLET BY MOUTH TWICE D AILY. 02/17/2016 12/14/2017 Inactive lisinopril 20 mg tablet RxNorm: 444181 TAKE 1 TABLET DAILY 01/23/2016 01/24/2017 Inactive cetirizine 10 mg tablet RxNorm: 4952845 1 Tablet(s) PO daily to take instead of the claritin 01/21/2016 02/18/2016 Inactive amlodipine 10 mg tablet RxNorm: 763695 1 Tablet(s) PO daily TAKE 1 TABLET BY MO UTH ONCE DAILY 12/02/2015 03/02/2016 Inactive clopidogrel 75 mg ta blet RxNorm: 880769 TAKE 1 TABLET BY MOUT H EVERY DAY 11/25/2015 05/22/2016 In active Mobic 15 mg tablet RxNorm: 154447 TAKE(1/2) TABLET DAILY. 11/17/2015 02/22/2016 Inactive lisinopril 20 mg tablet RxNorm: 565830 TAKE 1 TABLET DAILY 11/17/2015 01/15/2016 Inactive Mobic 15 mg tablet RxNorm: 842818 1/2 Tablet(s) PO daily TAKE (1/2) TABLET DAILY. 11/12/2015 11/16/2015 Inactive citalopram 10 mg tablet RxNorm: 396864 TAKE 1 TABLET BY MOUTH EVERY DAY 10/27/2015 04/05/2016 In active Requip 0.25 mg tablet RxNorm: 772636 1 Tablet(s) PO BID 10/15/2015 02/11/2016 Inactive Requip 0.25 mg tablet RxNorm: 620538 1 Tablet(s) PO BID 10/15/2015 10/14/2015 Inactive mirtazapine 15 mg ta blet RxNorm: 052158 1 Tablet(s) PO daily 09/08/2015 10/01/2016 Inactive donepezil 10 mg tablet RxNorm: 509700 TAKE 1 TABLET DAILY 09/01/2015 04/25/2016 Inactive amlodipine 10 mg tablet RxNorm: 092313 1 Tablet(s) PO daily TAKE 1 TABLET BY MO UTH ONCE DAILY 08/18/2015 12/01/2015 Inactive clopidogrel 75 mg ta blet RxNorm: 765915 1 Tablet(s) PO daily TAKE 1 TABLET DAILY 05/20/2015 11/24/2015 In active Mobic 15 mg tablet RxNorm: 659517 Tablet(s) TAKE (1/2) TABLET DAILY. 04/23/2015 10/19/2015 In active lisinopril 20 mg tablet RxNorm: 828117 TAKE 1 TABLET DAILY 04/22/2015 11/16/2015 Inactive Mobic 15 mg tablet RxNorm: 642616 TAKE (1/2) TABLET DAILY. 04/22/2015 04/22/2015 Inactive sulfamethoxazole 400 mg-trimethoprim 80 mg tablet RxNorm: 778022 1/2 Tablet(s) PO nancy y 03/11/2015 04/09/2015 Inactive Vesicare 5 mg tablet RxNorm: 094284 1 Tablet(s) PO 03/11/2015 05/09/2015 Inactive Protonix 40 mg table t,delayed release RxNorm: 379508 1 Tablet(s) PO BID 03/05/2015 09/30/2015 In active ok to change from [address] Archana rivera clopidogrel 75 mg ta blet RxNorm: 888555 1 Tablet(s) PO daily TAKE 1 TABLET DAILY 02/20/2015 05/19/2015 In active Namenda 10 mg tablet RxNorm: 257081 Tablet(s) TAKE 1 TABLET BY MOUTH TWICE D AILY. 01/22/2015 02/16/2016 Inactive amlodipine 10 mg tablet RxNorm: 449902 TAKE 1 TABLET BY MOUTH ONCE DAILY 01/14/2015 08/17/2015 In active donepezil 10 mg tablet RxNorm: 212527 TAKE 1 TABLET DAILY 01/06/2015 08/31/2015 Inactive Levsin 0.125 mg tablet RxNorm: 5654441 1 Tablet(s) PO QID as needed FOR ABD REJI N 11/05/2014 12/03/2014 In active Mobic 15 mg tablet RxNorm: 470212 1/2 Tablet(s) daily TAKE (1/2) TABLET DA MOIZ. 10/01/2014 04/21/2015 Inactive ciprofloxacin 500 mg tablet RxNorm: 685267 1 Tablet(s) PO BID 09/27/2014 10/01/2014 Inactive Flagyl 500 mg tablet RxNorm: 975583 1 Tablet(s) PO TID 09/27/2014 10/03/2014 Inactive take probiotic BID donepezil 10 mg tablet RxNorm: 079621 1/2 Tablet(s) PO BID 09/24/2014 01/05/2015 Inactive lisinopril 20 mg tablet RxNorm: 592699 TAKE 1 TABLET DAILY 09/05/2014 04/21/2015 Inactive amlodipine 10 mg tablet RxNorm: 934418 1 Tablet(s) PO daily 09/02/2014 12/30/2014 Inactive mirtazapine 15 mg ta blet RxNorm: 295012 1 Tablet(s) PO daily 08/28/2014 09/07/2015 Inactive donepezil 10 mg tablet RxNorm: 753209 1 Tablet(s) PO daily 08/28/2014 09/23/2014 Inactive citalopram 10 mg tablet RxNorm: 087378 1 Tablet(s) PO daily 08/28/2014 03/25/2015 Inactive citalopram 10 mg tablet RxNorm: 313145 1 Tablet(s) PO daily 08/07/2014 08/27/2014 Inactive citalopram 10 mg tablet RxNorm: 735410 1 Tablet(s) PO daily 08/07/2014 08/06/2014 Inactive Flagyl 500 mg tablet RxNorm: 516696 1 Tablet(s) PO TID 08/02/2014 08/01/2014 Inactive take probiotic BID Flagyl 500 mg tablet RxNorm: 668545 1 Tablet(s) PO TID 08/02/2014 08/08/2014 Inactive take probiotic BID tamsulosin ER 0.4 mg capsule,extended release 24 hr RxNorm: 634424 1 Capsule(s) PO QHS 06/06/2014 03/10/2015 Inactive TAKE AT BEDTIME escitalopram 5 mg ta blet RxNorm: 489658 1 Tablet(s) PO QPM 06/06/2014 08/06/2014 Inactive doxycycline hyclate 100 mg tablet RxNorm: 472924 1 Tablet(s) PO BID 05/31/2014 05/30/2014 Inactive doxycycline hyclate 100 mg tablet RxNorm: 459390 1 Tablet(s) PO BID 05/31/2014 06/06/2014 Inactive please deliver if not picked by 3pm Aricept 5 mg tablet RxNorm: 198455 1 Tablet(s) PO BID 05/29/2014 08/27/2014 Inactive losartan 50 mg tablet RxNorm: 938350 1/2 Tablet(s) PO daily 05/29/2014 12/28/2015 Inactive clopidogrel 75 mg ta blet RxNorm: 726701 1 Tablet(s) PO daily 05/27/2014 05/26/2014 Inactive Mobic 15 mg tablet RxNorm: 117193 TAKE (1/2) TABLET DAILY. 05/27/2014 09/30/2014 Inactive clopidogrel 75 mg ta blet RxNorm: 944271 TAKE 1 TABLET DAILY 05/27/2014 02/19/2015 Inactive Mobic 15 mg tablet RxNorm: 759986 1/2 Tablet(s) PO daily TAKE (1/2) TABLET DAILY. 05/27/2014 05/26/2014 Inactive prednisone 20 mg tablet RxNorm: 729448 1 Tablet(s) PO BID 05/21/2014 05/25/2014 Inactive albuterol sulfate 2. 5 mg/0.5 mL solution for nebulization RxNorm: 163477 1 inhale INH Q4H as needed 05/21/2014 09/01/2015 Inactive prednisone 20 mg tablet RxNorm: 594230 1 Tablet(s) PO BID 05/21/2014 05/20/2014 Inactive cefdinir 300 mg capsule RxNorm: 971349 1 Capsule(s) PO BID 05/20/2014 05/26/2014 Inactive Zithromax Z-Dequan 250 mg tablet RxNorm: 097860 1 Tablet(s) PO UD 05/20/2014 05/24/2014 Inactive zpack lorazepam 0.5 mg tablet RxNorm: 234443 1/2 to 1 Tablet(s) PO Q8 PRN as needed 04/30/2014 06/05/2014 In active Namenda 10 mg tablet RxNorm: 087436 TAKE 1 TABLET BY MOUTH TWICE DAILY. 04/15/2014 01/21/2015 In active Namenda 10 mg tablet RxNorm: 605629 1 Tablet(s) PO BID 04/15/2014 04/14/2014 Inactive losartan 50 mg tablet RxNorm: 259869 1 Tablet(s) PO daily 03/25/2014 05/28/2014 Inactive Protonix 40 mg table t,delayed release RxNorm: 443111 1 Tablet(s) PO QPM 03/21/2014 06/18/2014 In active ok to change from [address] Archana rivera fluticasone 50 mcg/a ctuation nasal spray,suspension RxNorm: 583864 1 [place] NASAL BID 03/04/2014 09/29/2014 Inactive Protonix 20 mg table t,delayed release RxNorm: 386533 1 Tablet(s) PO QPM 02/08/2014 03/20/2014 In active fluticasone 50 mcg/a ctuation nasal spray,suspension RxNorm: 126870 1 [place] NASAL BID 01/30/2014 03/03/2014 Inactive fluticasone 50 mcg/a ctuation nasal spray,suspension RxNorm: 290888 1 [place] NASAL BID 12/24/2013 01/29/2014 Inactive fluticasone 50 mcg/a ctuation nasal spray,suspension RxNorm: 427713 1 [place] NASAL BID 11/20/2013 12/23/2013 Inactive doxycycline hyclate 100 mg capsule RxNorm: 2291877 1 Capsule(s) PO BID 10/08/2013 10/17/2013 In active doxycycline hyclate 100 mg capsule RxNorm: 2433754 capsule oral 10/08/2013 10/29/2013 Inactive fluticasone 50 mcg/a ctuation nasal spray,suspension RxNorm: 548422 spray,suspension nasl 10/08/2013 11/19/2013 Inactive fluticasone 50 mcg/a ctuation nasal spray,suspension RxNorm: 800146 1 [place] NASAL BID Nasal spray- use twice daily, one spray per nostril twice daily, after 30 minutes, rinse out nose with saline spray. 10/08/2013 10/29/2013 Inactive mirtazapine 7.5 mg t ablet RxNorm: 227026 1/2 Tablet(s) PO daily 08/30/2013 08/27/2014 Inactive lorazepam 0.5 mg tablet RxNorm: 673247 1/2 Tablet(s) PO Q8 PRN 08/21/2013 04/29/2014 Inactive Aricept 5 mg tablet RxNorm: 110336 Tablet(s) PO TAKE 1 TABLET DAILY 08/21/2013 05/28/2014 In active Plavix 75 mg tablet RxNorm: 205233 Tablet(s) PO TAKE 1 TABLET DAILY 05/24/2013 12/04/2014 In active clopidogrel 75 mg ta blet RxNorm: 924876 tablet oral 05/24/2013 05/26/2014 Inactive Plavix 75 mg tablet RxNorm: 857677 1 Tablet(s) PO daily 05/23/2013 05/23/2013 Inactive meloxicam 15 mg tablet RxNorm: 216421 tablet oral 04/26/2013 03/25/2014 Inactive Mobic 15 mg tablet RxNorm: 426572 Tablet(s) PO TAKE (1/2) TABLET DAILY. 04/26/2013 05/26/2014 In active Mobic 15 mg tablet RxNorm: 413434 1/2 Tablet(s) PO daily 04/25/2013 04/25/2013 Inactive lisinopril 20 mg tablet RxNorm: 177447 1 Tablet(s) PO 04/04/2013 03/24/2014 Inactive finasteride 5 mg tablet RxNorm: 652836 tablet oral 03/22/2013 09/01/2015 Inactive lisinopril 10 mg tablet RxNorm: 096942 1 Tablet(s) PO daily 02/14/2013 04/03/2013 Inactive donepezil 5 mg tablet RxNorm: 847065 tablet oral 02/07/2013 12/24/2013 Inactive Influenza Virus Vacc ine 0.5 mL RxNorm: IM 02/06/2013 02/06/2013 Inactive Aricept 5 mg tablet RxNorm: 967782 1 Tablet(s) PO daily 02/06/2013 08/04/2013 Inactive tamsulosin ER 0.4 mg capsule,extended release 24 hr RxNorm: 529983 capsule,extended release 24hr oral 12/21/2012 06/05/2014 Inactive Plavix 75 mg tablet RxNorm: 383865 1 Tablet(s) PO daily 12/05/2012 05/03/2013 Inactive lorazepam 0.5 mg tablet RxNorm: 514780 1/2 Tablet(s) PO Q8 PRN 11/14/2012 08/20/2013 Inactive lisinopril 10 mg tablet RxNorm: 248561 1 Tablet(s) PO daily 08/08/2012 02/03/2013 Inactive Aricept 5 mg tablet RxNorm: 185976 1 Tablet(s) PO daily 08/08/2012 02/03/2013 Inactive Plavix 75 mg tablet RxNorm: 228863 1 Tablet(s) PO daily 07/04/2012 11/30/2012 Inactive Mobic 15 mg tablet RxNorm: 275310 1/2 Tablet(s) PO daily 03/20/2012 04/13/2013 Inactive Namenda 10 mg tablet RxNorm: 700753 1 Tablet(s) PO BID 02/22/2012 04/11/2014 Inactive lorazepam 0.5 mg tablet RxNorm: 810046 1/2 Tablet(s) PO Q8 PRN 02/02/2012 11/13/2012 Inactive lisinopril 10 mg tablet RxNorm: 401502 1 Tablet(s) PO daily 01/24/2012 07/21/2012 Inactive lisinopril 10 mg tablet RxNorm: 650142 1/2 Tablet(s) PO daily 12/20/2011 01/23/2012 Inactive Aricept 5 mg tablet RxNorm: 088656 1 Tablet(s) PO daily 07/14/2011 08/06/2012 Inactive Mobic 15 mg tablet RxNorm: 817916 1 Tablet(s) PO daily 07/14/2011 03/19/2012 Inactive Bentyl 10 mg Cap RxNorm: 817543 1 Capsule(s) PO daily one pill daily and every 6 hours if needed for bowel spasms. 06/23/2011 03/20/2012 Inactive amlodipine 5 mg Tab RxNorm: 773593 2 Tablet(s) PO daily 03/08/2011 12/08/2011 Inactive ZOSTAVAX 19,400 unit Sub-Q Soln RxNorm: 0907892 SQ 02/2502/25/2011 Inactive Pneumovax 23 25 mcg/ 0.5 mL Injection RxNorm: 596576 Milliliter(s) Inj 02/16/2011 02/16/2011 In active Influenza Virus Vacc ine 0.5 mL RxNorm: IM 02/09/2011 02/09/2011 Inactive Namenda 10 mg tablet RxNorm: 511745 1 Tablet(s) PO BID 02/01/2011 02/21/2012 Inactive dicyclomine 10 mg ca psule RxNorm: 570873 capsule oral 01/20/2011 10/29/2013 Inactive Namenda 5 mg tablet RxNorm: 468354 tablet oral 01/20/2011 12/24/2013 Inactive dicyclomine 20 mg ta blet RxNorm: 627394 tablet oral 01/15/2011 10/29/2013 Inactive Flagyl 500 mg Tab RxNorm: 533509 1 Tablet(s) PO TID 01/07/2011 01/06/2011 Inactive Cipro 500 mg Tab RxNorm: 659151 1 Tablet(s) PO BID 01/07/2011 06/23/2011 Inactive Cipro 500 mg Tab RxNorm: 524514 1 Tablet(s) PO BID 01/07/2011 01/06/2011 Inactive Flagyl 500 mg Tab RxNorm: 623571 1 Tablet(s) PO TID 01/07/2011 06/23/2011 Inactive metronidazole 500 mg tablet RxNorm: 906164 tablet oral 01/07/2011 12/24/2013 Inactive sulfamethoxazole 400 mg-trimethoprim 80 mg tablet RxNorm: 970245 tablet oral 12/24/2010 03/10/2015 In active mirtazapine 15 mg ta blet RxNorm: 582742 tablet oral 11/14/2010 12/24/2013 Inactive lisinopril 10 mg tablet RxNorm: 688014 tablet oral 11/14/2010 12/24/2013 Inactive doxycycline hyclate 100 mg tablet RxNorm: 359720 tablet oral 11/04/2010 12/24/2013 Inactive diphenoxylate-atropi ne 2.5 mg-0.025 mg tablet RxNorm: 4933240 tablet oral 11/03/2010 10/29/2013 In active ciprofloxacin 500 mg tablet RxNorm: 407826 tablet oral 11/01/2010 10/29/2013 Inactive Miralax 17 gram/dose oral powder RxNorm: 187307 17 Gram(s) PO daily No Start Date Active alprazolam 0.25 mg t ablet RxNorm: 247996 1 Tablet(s) PO BID PRN No Start Date Active simvastatin 20 mg ta blet RxNorm: 817544 1 Tablet(s) PO daily No Start Date Active Vesicare 5 mg tablet RxNorm: 497190 1 Tablet(s) PO daily No Start Date Active bicalutamide 50 mg t ablet RxNorm: 180735 1 Tablet(s) PO daily No Start Date Active Phenergan 6.25 mg/5 mL syrup RxNorm: 896238 5-10 Milliliter(s) PO QID as needed No Start Date Active sulfamethoxazole 500 mg Tab RxNorm: 949908 1/2 Tablet(s) PO daily No Start Date 12/24/2013 Inactive Plavix 75 mg Tab RxNorm: 394126 1 Tablet(s) PO daily No Start Date 01/26/2011 Inactive aspirin 81 mg Cap, D elayed Release RxNorm: 834744 1 Capsule(s) PO daily No Start Date 01/04/2018 Inactive Bentyl 10 mg capsule RxNorm: 566897 1 Capsule(s) PO QID as needed per dr. tylor pereira No Start Date 01/04/2018 Inactive famotidine 20 mg tablet RxNorm: 894801 1 Tablet(s) PO BID prescribed in ER No Start Date 10/13/2017 Inactive hydrocodone 5 mg-alexey taminophen 325 mg tablet RxNorm: 354480 1 Tablet(s) PO Q6 as needed No Start Date 06/05/2014 Inactive Proscar 5 mg Tab RxNorm: 848182 1 Tablet(s) PO daily No Start Date 09/01/2015 Inactive Plavix 75 mg tablet RxNorm: 702479 1 Tablet(s) PO daily No Start Date 07/03/2012 Inactive albuterol sulfate 2. 5 mg/0.5 mL solution for nebulization RxNorm: 236062 1 inhale INH Q4H as needed No Start Date 05/20/2014 Inactive metoclopramide 5 mg tablet RxNorm: 618828 1 Tablet(s) PO AC & H S prescribed in ER No Start Date 01/04/2018 Inactive amlodipine 5 mg Tab RxNorm: 838625 1 Tablet(s) PO daily No Start Date 03/07/2011 Inactive ranitidine 150 mg ta blet RxNorm: 783484 1 Tablet(s) PO daily No Start Date 07/24/2018 Inactive Namenda 5 mg Tab RxNorm: 681608 1 Tablet(s) PO daily No Start Date 06/23/2011 Inactive Zyrtec 10 mg tablet RxNorm: 4450437 1 Tablet(s) PO daily No Start Date 01/04/2018 Inactive Allergy Relief (ceti rizine) oral RxNorm: 480494 oral No S tart Date 12/19/2016 Inactive fluocinonide 0.05 % Ointment RxNorm: 454237 1 TOP BID PRN No Start Date 12/24/2013 Inactive amlodipine 5 mg tablet RxNorm: 185276 1 Tablet(s) PO daily No Start Date 09/01/2014 Inactive lisinopril Oral RxNorm: Oral No Start Date 12/08/2011 Inactive simvastatin 20 mg Tab RxNorm: 739837 1 Tablet(s) PO daily No Start Date 06/06/2014 Inactive Bentyl 20 mg Tab RxNorm: 305797 1 Tablet(s) PO Q6 PRN No Start Date 06/23/[address] Quintero Bentyl 10 mg Cap RxNorm: 674257 1 Capsule(s) PO BID No Start Date 06/22/2011 Inactive fluticasone 50 mcg/a ctuation nasal spray,suspension RxNorm: 5876969 1 [place] NASAL BID No Start Date 02/07/2018 Inactive Plavix 75 mg Tab RxNorm: 297782 1 Tablet(s) PO every other day No Start Date 08/24/2011 Inactive lorazepam 0.5 mg tablet RxNorm: 667455 1/2 Tablet(s) PO Q8 PRN No Start Date 02/01/2012 Inactive lisinopril 10 mg tablet RxNorm: 468448 1 Tablet(s) PO daily No Start Date 12/19/2011 Inactive Trulance 3 mg tablet RxNorm: 8682177 1 Tablet(s) PO QAM No Start Date 01/18/2018 Inactive Flomax 0.4 mg 24 hr Cap RxNorm: 391740 1 Capsule(s) PO daily No Start Date 05/28/2014 Inactive Aricept 5 mg Tab RxNorm: 376241 1 Tablet(s) PO daily No Start Date 07/13/2011 Inactive Vitamin D 1,000 unit Tab RxNorm: 100911 1 Tablet(s) PO daily No Start Date 01/04/2018 Inactive Levsin 0.125 mg tablet RxNorm: 8244750 1 Tablet(s) PO QID as needed FOR ABD REJI N No Start Date 11/04/2014 Inactive mirtazapine 7.5 mg t ablet RxNorm: 703404 1/2 Tablet(s) PO daily No Start Date 08/29/2013 Inactive Senior Vitamin Tab RxNorm: 1 Tablet(s) PO daily No Start Date 01/04/2018 Inactive Mobic 15 mg Tab RxNorm: 740454 1 Tablet(s) PO daily No Start Date 07/13/2011 Inactive Medication Administered Medication Codes Instruc tions Start Date Status Kenalog 40 mg/mL suspension for injection RxNorm: 9042867 Milliliter 11/25/2016 No longer Active Influenza Virus Vaccine 0.5 mL RxNorm: 02/06/2013 No longer Active ZOSTAVAX 19,400 unit Sub-Q Soln RxNo rm: 7096564 02/25/2011 No longer A ctive Pneumovax 23 25 mcg/0.5 mL Injection RxNorm: 219768 Milliliter 02/16/2011 No longer Active Influenza Virus [...] completed Assessments Condition Codes Effectiv e Dates 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 ICD-9: 703.8 05/18/2018 Essential (primary) hypertension ICD -10: I10 ICD-9: 401.1 05/18/2018 Abrasion of left upper arm, initial [...] prostate ICD-1 0: C61 ICD-9: 185 11/14/2017 Gastro-esophageal reflux disease without esophagitis ICD-10: K21.9 ICD-9: 530.81 2017 Underweight ICD-10: R63.6 ICD-9: 783.22 10/13/2017 Gastroparesis [...] For Visit Effective Dates Notes abdominal pain 05/18/2018 abdominal pain 04/13/2018 abdominal [...] Ord15 CALCIUM 10.1 mg/dL 06/08/2018 Comp Metabolic Wje911 NA 143 mEq/L 04/10/2018 Comp Metabolic Dqm207 K 3.8 mEq/L 04/10/2018 Comp Metabolic Lcr784 CL 105 mEq/L 04/10/2018 Comp Metabolic Ryn703 CO2 30.0 mEq/L 04/10/2018 Comp Metabolic Nfa323 AN ION GAP 12 04/10/2018 Comp Metabolic Yzt894 GL UCOSE 95 mg/dL 04/10/2018 Comp Metabolic Ono296 Cr eat 1.2 mg/dL 04/10/2018 Comp Metabolic Lzi460 eG FR 60 ml/min/1.73m2 04/10 Comp Metabolic Zqs769 BUN 22 mg/dL 04/10/2018 Comp Metabolic Vbq009 B/ C Ratio 18.2 Ratio 04/10/2018 Comp Metabolic Zjb965 CA LCIUM 10.3 mg/dL 04/10/2018 Comp Metabolic Xhn097 AL K PHOS 113 U/L 04/10/2018 Comp Metabolic Ivv873 T(SGOT) 30 U/L 04/10/2018 Comp Metabolic Cqy492 AL T(SGPT) 19 U/L 04/10/2018 Comp Metabolic Mwx582 BI LI T 0.4 mg/dL 04/10/2018 Comp Metabolic Mhs727 AL BUMIN 4.2 g/dL 04/10/2018 Comp Metabolic Sum791 TP RO 6.5 g/dL 04/10/2018 Comp Metabolic Wqs496 GL OB 2.3 g/dL 04/10/2018 Comp Metabolic Sgm325 A/ G Ratio 1.8 Ratio 04/10/2018 Comp Metabolic Alu075 Os mo 288 mOsmo 04/10/2018 Lipid Ord30 CHOL 133 mg/dL 04/10/2018 Lipid Ord30 HDL 49.0 mg/dl 04/10/2018 Lipid Ord30 TRIG 68 mg/dL 04/10/2018 Lipid Ord30 LDL 70 mg/dL 04/10/2018 Lipid Ord30 C/HDL 2.7 Ratio 04/10/2018 C RAP A SC 5909965 Strep A Negative 01/13/2018 Comp Metabolic Wzi506 NA 134 mEq/L 10/07/2017 Comp Metabolic Lpy350 K 4.5 mEq/L 10/07/2017 Comp Metabolic Mhu317 CL 99 mEq/L 10/07/2017 Comp Metabolic Tbj727 CO2 31.0 mEq/L 10/07/2017 Comp Metabolic Dww461 AN ION GAP 9 10/07/2017 Comp Metabolic Lss325 GL UCOSE 82 mg/dL 10/07/2017 Comp Metabolic Bxn674 Cr eat 1.0 mg/dL 10/07/2017 Comp Metabolic Gbe294 eG FR 77 ml/min/1.73m2 10/07 Comp Metabolic Cyn335 BUN 16 mg/dL 10/07/2017 Comp Metabolic Cmy230 B/ C Ratio 16.3 Ratio 10/07/2017 Comp Metabolic Loh600 CA LCIUM 9.6 mg/dL 10/07/2017 Comp Metabolic Tcz992 AL K PHOS 72 U/L 10/07/2017 Comp Metabolic Umr867 T(SGOT) 21 U/L 10/07/2017 Comp Metabolic Fpf603 AL T(SGPT) 14 U/L 10/07/2017 Comp Metabolic Gzd913 BI LI T 0.4 mg/dL 10/07/2017 Comp Metabolic Ujq696 AL BUMIN 4.0 g/dL 10/07/2017 Comp Metabolic Glq468 TP RO 5.7 g/dL 10/07/2017 Comp Metabolic Sye346 GL OB 1.7 g/dL 10/07/2017 Comp Metabolic Sxf492 A/ G Ratio 2.4 Ratio 10/07/2017 Comp Metabolic Uhx859 Os mo 269 mOsmo 10/07/2017 Lipid Ord30 CHOL 135 mg/dL 10/07/2017 Lipid Ord30 HDL 69.0 mg/dl 10/07/2017 Lipid Ord30 TRIG 52 mg/dL 10/07/2017 Lipid Ord30 LDL 56 mg/dL 10/07/2017 Lipid Ord30 C/HDL 2.0 Ratio 10/07/2017 %Hba1C Lhf535 % HbA1c 08108-8 5.5 % 09/12/2017 %Hba1C Buh221 Gluc Ave 111 mg/dL 09/12/2017 B12 Fxo686 B12 816.00 pg/ml 09/10/2017 Test(s) Not Perfromed Test(s) Not Performed Test(s) Not Performed. See B elow: 09/09/2017 Test(s) Not Perfromed TEST NAME VIT D 09/09/2017 Test(s) Not Perfromed Rejection Reason NO PAYABLE DX 018 Test(s) Not Perfromed COMMENT PATIENT SAID HE WAS TAKING SUPPLEMENT 09/09/2017 Test(s) Not Perfromed Ton Container Filler Tello Almeida 05/04/2 018 Lipid Ord30 CHOL 134 mg/dL 04/11/2017 Lipid Ord30 HDL 63.0 mg/dl 04/11/2017 Lipid Ord30 TRIG 45 mg/dL 04/11/2017 Lipid Ord30 LDL 62 mg/dL 04/11/2017 Lipid Ord30 C/HDL 2.1 Ratio 04/11/2017 Tsh Ord6 hTSH II 2.07 uIU/mL 04/11/2017 Body Fluid Crystals Source RIGHT ELBOW 6 Body Fluid Crystals CRYSTALS, BODY FLUID 02/18/2016 Uric Acid Body Fluid 285022 URIC ACID-FLUID 4.3 mg/dL 02/18/2016 Metabolic Ord15 [...] Ord15 CALCIUM 9.1 mg/dL 02/05/2016 Comp Metabolic Rha057 NA 129 mEq/L 10/08/2015 Comp Metabolic Fyr219 K 4.7 mEq/L 10/08/2015 Comp Metabolic Wdk897 CL 98 mEq/L 10/08/2015 Comp Metabolic Vgt863 CO2 28.0 mEq/L 10/08/2015 Comp Metabolic Ftp670 AN ION GAP 8 10/08/2015 Comp Metabolic Lql577 GL UCOSE 84 mg/dL 10/08/2015 Comp Metabolic Xie844 Cr eat 1.3 mg/dL 10/08/2015 Comp Metabolic Szu029 eG FR 56 ml/min/1.73m2 10/07 Comp Metabolic Djr770 BUN 23 mg/dL 10/08/2015 Comp Metabolic Fnd141 B/ C Ratio 17.8 Ratio 10/08/2015 Comp Metabolic Wpi914 CA LCIUM 9.3 mg/dL 10/08/2015 Comp Metabolic Mzv260 AL K PHOS 68 U/L 10/08/2015 Comp Metabolic Qyw520 T(SGOT) 24 U/L 10/08/2015 Comp Metabolic Del063 AL T(SGPT) 15 U/L 10/08/2015 Comp Metabolic Nas339 BI LI T 0.5 mg/dL 10/08/2015 Comp Metabolic Tsj634 AL BUMIN 4.0 g/dL 10/08/2015 Comp Metabolic Khk621 TP RO 5.9 g/dL 10/08/2015 Comp Metabolic Atb168 GL OB 1.9 g/dL 10/08/2015 Comp Metabolic Cfy069 A/ G Ratio 2.1 Ratio 10/08/2015 Comp Metabolic Lqu676 Os mo 262 mOsmo 10/08/2015 Lipid Ord30 [...] Ord30 C/HDL 2.3 Ratio 05/07/2015 Comp Metabolic Aee961 NA 132 mEq/L 05/07/2015 Comp Metabolic Dvi136 K 4.4 mEq/L 05/07/2015 Comp Metabolic Cke059 CL 97 mEq/L 05/07/2015 Comp Metabolic Wrw261 CO2 30.0 mEq/L 05/07/2015 Comp Metabolic Omy574 AN ION GAP 9 05/07/2015 Comp Metabolic Cib350 GL UCOSE 78 mg/dL 05/07/2015 Comp Metabolic Fse793 Cr eat 1.2 mg/dL 05/07/2015 Comp Metabolic Tut474 eG FR 60 ml/min/1.73m2 05/07 Comp Metabolic Ole508 BUN 25 mg/dL 05/07/2015 Comp Metabolic Sky453 B/ C Ratio 20.3 Ratio 05/07/2015 Comp Metabolic Cqz040 CA LCIUM 9.6 mg/dL 05/07/2015 Comp Metabolic Vfj383 AL K PHOS 70 U/L 05/07/2015 Comp Metabolic Uyg855 T(SGOT) 27 U/L 05/07/2015 Comp Metabolic Qrm031 AL T(SGPT) 20 U/L 05/07/2015 Comp Metabolic Dkl111 BI LI T 0.4 mg/dL 05/07/2015 Comp Metabolic Pln969 AL BUMIN 4.0 g/dL 05/07/2015 Comp Metabolic Gka782 TP RO 5.8 g/dL 05/07/2015 Comp Metabolic Ahr423 GL OB 1.8 g/dL 05/07/2015 Comp Metabolic Hql300 A/ G Ratio 2.3 Ratio 05/07/2015 Comp Metabolic Qmv242 Os mo 268 mOsmo 05/07/2015 Cbc With [...] hTSH II 4.07 uIU/mL 05/07/2015 Comp Metabolic Rsf400 NA 134 mEq/L 12/10/2014 Comp Metabolic Mky083 K 4.8 mEq/L 12/10/2014 Comp Metabolic Cwb371 CL 101 mEq/L 12/10/2014 Comp Metabolic Azw065 CO2 30.0 mEq/L 12/10/2014 Comp Metabolic Uoi327 AN ION GAP 8 12/10/2014 Comp Metabolic Ieg516 GL UCOSE 85 mg/dL 12/10/2014 Comp Metabolic Usa355 Cr eat 1.2 mg/dL 12/10/2014 Comp Metabolic Sxl321 eG FR 65 ml/min/1.73m2 12/10 Comp Metabolic Bhy895 BUN 25 mg/dL 12/10/2014 Comp Metabolic Wqt885 B/ C Ratio 21.7 Ratio 12/10/2014 Comp Metabolic Mec882 CA LCIUM 9.5 mg/dL 12/10/2014 Comp Metabolic Qqz623 AL K PHOS 76 U/L 12/10/2014 Comp Metabolic Tpb666 T(SGOT) 27 U/L 12/10/2014 Comp Metabolic Yny225 AL T(SGPT) 18 U/L 12/10/2014 Comp Metabolic Nhv384 BI LI T 0.5 mg/dL 12/10/2014 Comp Metabolic Kkr929 AL BUMIN 4.1 g/dL 12/10/2014 Comp Metabolic Mbc989 TP RO 5.7 g/dL 12/10/2014 Comp Metabolic Kpp021 GL OB 1.6 g/dL 12/10/2014 Comp Metabolic Cfx023 A/ G Ratio 2.6 Ratio 12/10/2014 Comp Metabolic Snx181 Os mo 272 mOsmo 12/10/2014 B12 Nij908 B12 1011.00 pg/ml 12/10/2014 Lipid Ord30 CHOL [...] Differential Ord2 RDW 14.3 % 12/10/2014 CBC 9293523 WBC 4.1 10e9/L 02/19/2013 CBC 9573095 RBC 4.39 10e12/L 02/19/2013 CBC 9413334 HGB 14.1 g/dL 02/19/2013 CBC 6292402 HCT DET 41.0 % 02/19/2013 CBC 2453348 MCV 93.4 fL 02/19/2013 CBC 8059611 MCH 32.1 pg 02/19/2013 CBC 0555550 MCHC 34.4 g/dL 02/19/2013 CBC 9599097 PLT 151 10e9/L 02/19/2013 CBC 9039244 MPV 11.8 fL 02/19/2013 CBC 9983813 YOVANNY % 63.2 % 02/19/2013 CBC 0016957 LY % 22.9 % 02/19/2013 CBC 3487019 MON % 11.5 % 02/19/2013 CBC 0089680 EOS % 2.2 % 02/19/2013 CBC 6782713 BASO % 0.2 % 02/19/2013 CBC 8709931 RDW 13.8 % 02/19/2013 CBC 9146338 ABS YOVANNY 2.59 10e9/L 02/19/2013 CBC 8135433 ABS LYMPH 0.94 10e9/L 02/19/2013 CBC 3840769 ABS MONO 0.47 10e9/L 02/19/2013 CBC 9925228 ABS EOS 0.09 10e9/L 02/19/2013 CBC 4287941 ABS BASO 0.01 10e9/L 02/19/2013 CBC 5248316 RDW-SD 46.0 fL 02/19/2013 TSH 4650127 TSH 2.094 uIU/ML 02/19/2013 FREE T4 4064056 FREE T4 1.18 NG/DL 02/19/2013 GFR CALC 0594816 GFR AA >60 ML/MIN 02/19/2013 GFR CALC 1269932 GFR NON -AA >60 ML/MIN 02/19/2013 CHEM 14 3993216 AST 30 U/L 02/19/2013 CHEM 14 5069488 ALT 19 IU/L 02/19/2013 CHEM 14 4130730 BUN 21 MG/DL 02/19/2013 CHEM 14 4960737 ALBUMIN 4.4 GM/DL 02/19/2013 CHEM 14 3767488 CHLORIDE 94 MMOL/L 02/19/2013 CHEM 14 7270739 BILI TOT 0.5 MG/DL 02/19/2013 CHEM 14 4861999 ALK PHOS 75 U/L 02/19/2013 CHEM 14 3256098 SODIUM 133 MMOL/L 02/19/2013 CHEM 14 9001361 CREATINI NE 1.07 MG/DL 02/19/2013 CHEM 14 7909602 CALCIUM 9.6 MG/DL 02/19/2013 CHEM 14 7110677 POTASSIUM 4.6 MMOL/L 02/19/2013 CHEM 14 6015578 PROT TOT 6.1 GM/DL 02/19/2013 CHEM 14 5630917 GLUCOSE 94 MG/DL 02/19/2013 CHEM 14 1741193 BICARB 31 MMOL/L 02/19/2013 CHEM 14 4816094 ANION GAP 8 MEQ/L 02/19/2013 UA 28387 Specific [place] 1.015 DateTime(Free Text in ) UA 87648 PH 6 DateTime(Free Text in Aprima ) UA 15582 GLUCOSE neg DateTime(Free Text in Aprima ) UA 53035 Protein neg DateTime(Free Text in Aprima ) UA 21681 Blood neg DateTime(Free Text in Aprima ) UA 59503 Bilirubin neg DateTime(Free Text in Aprima ) UA 39699 Ketones neg DateTime(Free Text in Aprima ) UA 07663 Urobilinogen neg DateTime(Free Text in Aprima ) UA 79168 Nitrite neg DateTime(Free Text in ) UA 63768 Leukocytes neg DateTime(Free Text in ) Review of Systems System Result Effective Dates Constitutional recent illness 05/18/2018 Constitutional No chills [...] Effective Dates Notes Full Exam - General 1995 Constitutional general appearance Overall: well developed 05/18/2018 [...] General 1995 Eyes conjunctiva/eyelids Overall: cornea clear 01/12/2018 None [...] clear 06/23/2011 None Full Exam - General 1995 Ears/Nose/Throat oral cavity/pharynx/larynx Overall: no masses 06/23/2011 [...] gait 01/15/2011 None Full Exam - General 1995 Musculoskeletal gait and station Overall: normal station [...] VACC PRSV FREE I NC ANTIG CPT-4: 94424 02/08/2018 URINALYSIS NONAUTO W /O SCOPE CPT-4: 39823 09/26/2017 ADMIN INFLUENZA VIRU S VAC CPT-4: G0008 01/25/2017 FLU VACC PRSV FREE I NC ANTIG CPT-4: 26710 01/25/2017 THER/PROPH/DIAG INJ SC/IM CPT-4: 39730 11/25/2016 TRIAMCINOLONE ACET I [place] NOS CPT-4: J3301 11/25/2016 DRAIN/INJECT JOINT/B URSA CPT-4: 28936 02/17/2016 IMMUNIZATION ADMIN CPT- 4: 50129 05/06/2015 PNEUMOCOCCAL VACC 13 TIFFANIE IM Formatting Model/CDA Sections, Assigned to/Celia Minaya SNOMED CT: 07949962 CPT-4: 95365Uqsezpx 05/06/2015 ADMIN INFLUENZA VIRU S VAC CPT-4: G0008 02/19/2015 FLU VACC 4 TIFFANIE 3 YRS PLUS IM Formatting Model/CDA Sections, Assigned to SNOMED CT: 62804019 CPT-4: 50598Wijaiaf 02/19/2015 URINALYSIS NONAUTO W /O SCOPE CPT-4: 60142 05/23/2014 ADMIN INFLUENZA VIRU S VAC CPT-4: G0008 03/26/2014 FLU VAC NO PRSV 4 VA L 3 YRS+ Assigned to/Celia Minaya CPT-4: 63026Ulfyujn 03/26/2014 PRESCRIP TRANSMIT A ERX SY CPT-4: G8553 04/04/2013 ROUTINE VENIPUNCTURE CPT-4: 90434 02/19/2013 ADMIN INFLUENZA VIRU S VAC CPT-4: G0008 02/06/2013 FLULAVAL VACC, 3 YRS & >, IM CPT-4: Q2036 02/06/2013 78367 EST. PATIENT, LEVEL IV CPT-4: 26626 06/19/2012 PRESCRIP TRANSMIT A ERX SY CPT-4: G8553 06/19/2012 PRESCRIP TRANSMIT A ERX SY CPT-4: G8553 03/20/2012 PRESCRIP TRANSMIT A ERX SY CPT-4: G8553 06/23/2011 IMMUNIZATION ADMIN CPT- 4: 96379 02/25/2011 ZOSTER VACC SC (No lloyd stephens, patient supplied vaccine) CPT-4: 56977SD 02/25/2011 ADMIN PNEUMOCOCCAL V ACCINE SNOMED CT: 92430581 CPT-4: G0009 02/16/2011 Pneumococcal Polysac charide Vaccine, 23-Valent, Ad CPT-4: 52550 02/16/2011 ADMIN INFLUENZA VIRU S VAC CPT-4: G0008 02/09/2011 FLULAVAL VACC, 3 YRS & >, IM CPT-4: Q2036 02/09/2011 PRESCRIP TRANSMIT A ERX SY CPT-4: G8553 02/01/2011 URINALYSIS NONAUTO W /O SCOPE CPT-4: 63480 01/27/2011 Vital Signs Date Vital 05/18/2018 Blood Pressure 1: 142/64 Code: 8480-6 BMI: 19.9 Code: 67391-0 Heart Rate 1: 52 bpm Height: 5'9" SpO2: 98% Weight: 135 lbs 04/13/2018 Blood Pressure 1: 128/58 Code: 8480-6 BMI: 21.0 Code: 20159-9 Heart Rate 1: 83 bpm Height: 5'9" SpO2: 94% Weight: 142 lbs 02/08/2018 Blood Pressure 1: 136/76 Code: 8480-6 BMI: 19.9 Code: 74326-2 Heart Rate 1: 78 bpm Height: 5'9" SpO2: 99% Weight: 135 lbs 01/19/2018 Blood Pressure 1: 114/78 Code: 8480-6 BMI: 19.9 Code: 34853-4 Heart Rate 1: 80 bpm Height: 5'9" SpO2: 98% Weight: 135 lbs 01/12/2018 Blood Pressure 1: 130/78 Code: 8480-6 BMI: 19.8 Code: 72261-4 Heart Rate 1: 85 bpm Height: 5'9" SpO2: 97% Weight: 134 lbs 01/05/2018 Blood Pressure 1: 122/70 Code: 8480-6 BMI: 19.6 Code: 66017-1 Heart Rate 1: 87 bpm Height: 5'9" SpO2: 96% Weight: 133 lbs 11/14/2017 Blood Pressure 1: 130/70 Code: 8480-6 BMI: 19.5 Code: 63466-1 Heart Rate 1: 75 bpm Height: 5'9" SpO2: 98% Weight: 132 lbs 2017 Blood Pressure 1: 116/70 Code: 8480-6 BMI: 19.5 Code: 82368-5 Heart Rate 1: 55 bpm Height: 5'9" SpO2: 95% Weight: 132 lbs 10/13/2017 Blood Pressure 1: 130/70 Code: 8480-6 BMI: 19.3 Code: 40280-9 Heart Rate 1: 67 bpm Height: 5'9" SpO2: 98% Weight: 131 lbs 09/26/2017 Blood Pressure 1: 126/70 Code: 8480-6 BMI: 19.1 Code: 53326-8 Heart Rate 1: 66 bpm Height: 5'9" SpO2: 100% Weight: 129 lbs 8 oz 09/12/2017 Blood Pressure 1: 120/70 Code: 8480-6 BMI: 19.5 Code: 45153-5 Heart Rate 1: 83 bpm Height: 5'9" SpO2: 99% Weight: 132 lbs 09/09/2017 Blood Pressure 1: 126/70 Code: 8480-6 BMI: 19.3 Code: 65026-1 Heart Rate 1: 80 bpm Height: 5'9" SpO2: 98% Weight: 131 lbs 08/17/2017 Blood Pressure 1: 130/74 Code: 8480-6 BMI: 19.6 Code: 16949-1 Heart Rate 1: 72 bpm Height: 5'9" SpO2: 98% Weight: 133 lbs 07/20/2017 Blood Pressure 1: 124/62 Code: 8480-6 BMI: 19.8 Code: 81512-6 Heart Rate 1: 65 bpm Height: 5'9" SpO2: 96% Weight: 134 lbs 07/01/2017 Blood Pressure 1: 134/64 Code: 8480-6 BMI: 21.0 Code: 72927-7 Height: 5'9" Weight: 142 lbs 06/21/2017 Blood Pressure 1: 142/80 Code: 8480-6 BMI: 21.0 Code: 08953-5 Heart Rate 1: 63 bpm Height: 5'9" SpO2: 98% Weight: 142 lbs 03/21/2017 Blood Pressure 1: 128/66 Code: 8480-6 BMI: 20.8 Code: 93698-5 Heart Rate 1: 61 bpm Height: 5'9" SpO2: 98% Weight: 141 lbs 03/08/2017 Blood Pressure 1: 134/68 Code: 8480-6 BMI: 20.4 Code: 11921-0 Heart Rate 1: 56 bpm Height: 5'9" SpO2: 99% Weight: 138 lbs 01/25/2017 Blood Pressure 1: 98/62 Code: 8480-6 BMI: 20.6 Code: 76382-9 Heart Rate 1: 71 bpm Height: 5'9" SpO2: 97% Weight: 139 lbs 8 oz 12/20/2016 Blood Pressure 1: 120/68 Code: 8480-6 BMI: 20.4 Code: 84076-1 Heart Rate 1: 70 bpm Height: 5'9" [...] 1: 120/60 Code: 8480-6 BMI: 20.7 Code: 70014-5 Heart Rate 1: 74 bpm Height: 5'9" SpO2: 95% Weight: 140 lbs 08/23/2016 Blood Pressure 1: 118/68 Code: 8480-6 BMI: 20.8 Code: 95412-4 Heart Rate 1: 54 bpm Height: 5'9" SpO2: 97% Weight: 141 lbs 04/26/2016 Blood Pressure 1: 108/64 Code: 8480-6 BMI: 21.0 Code: 75486-3 Heart Rate 1: 62 bpm Height: 5'9" SpO2: 95% Weight: 142 lbs 02/17/2016 Blood Pressure 1: 138/80 Code: 8480-6 BMI: 20.2 Code: 09189-3 Heart Rate 1: 76 bpm Height: 5'9" SpO2: 97% Weight: 137 lbs 02/09/2016 Blood Pressure 1: 140/76 Code: 8480-6 BMI: 20.2 Code: 61389-6 Heart Rate 1: 72 bpm Height: 5'9" SpO2: 96% Weight: 137 lbs 02/03/2016 Blood Pressure 1: 136/80 Code: 8480-6 BMI: 20.7 Code: 86040-3 Heart Rate 1: 86 bpm Height: 5'9" SpO2: 96% Weight: 140 lbs 01/26/2016 Blood Pressure 1: 144/78 Code: 8480-6 BMI: 20.7 Code: 06512-4 Heart Rate 1: 73 bpm Height: 5'9" SpO2: 97% Temperature: 37.0 (C ) / 98.6 (F) Weight: 140 lbs 01/21/2016 Blood Pressure 1: 116/62 Code: 8480-6 BMI: 20.4 Code: 82382-2 Heart Rate 1: 66 bpm Height: 5'9" SpO2: 97% Weight: 138 lbs 12/29/2015 Blood Pressure 1: 130/74 Code: 8480-6 BMI: 20.4 Code: 70327-0 Heart Rate 1: 51 bpm Height: 5'9" SpO2: 98% Weight: 138 lbs 09/02/2015 Blood Pressure 1: 126/60 Code: 8480-6 BMI: 22.3 Code: 80788-1 Heart Rate 1: 55 bpm Height: 5'9" SpO2: 96% Weight: 151 lbs 05/06/2015 Blood Pressure 1: 132/72 Code: 8480-6 BMI: 21.0 Code: 14319-8 Heart Rate 1: 63 bpm Height: 5'9" SpO2: 97% Weight: 142 lbs 03/05/2015 Blood Pressure 1: 130/68 Code: 8480-6 BMI: 21.0 Code: 65616-6 Heart Rate 1: 61 bpm Height: 5'9" SpO2: 96% Weight: 142 lbs 12/04/2014 Blood Pressure 1: 122/64 Code: 8480-6 BMI: 21.3 Code: 98376-9 Heart Rate 1: 72 bpm Height: 5'9" Weight: 144 lbs 09/24/2014 Blood Pressure 1: 142/80 Code: 8480-6 BMI: 20.4 Code: 30745-5 Heart Rate 1: 80 bpm Height: 5'9" Weight: 138 lbs 09/09/2014 Blood Pressure 1: 122/74 Code: 8480-6 BMI: 20.5 Code: 80556-9 Heart Rate 1: 64 bpm Height: 5'9" Weight: 139 lbs 07/26/2014 Blood Pressure 1: 136/82 Code: 8480-6 BMI: 20.4 Code: 90927-1 Heart Rate 1: 87 bpm Height: 5'9" SpO2: 92% Weight: 138 lbs 07/10/2014 Blood Pressure 1: 130/74 Code: 8480-6 BMI: 21.1 Code: 59741-1 Heart Rate 1: 64 bpm Height: 5'9" Weight: 143 lbs 06/06/2014 Blood Pressure 1: 142/88 Code: 8480-6 BMI: 20.4 Code: 33932-3 Heart Rate 1: 68 bpm Height: 5'9" Weight: 138 lbs 05/29/2014 Blood Pressure 1: 108/72 Code: 8480-6 BMI: 20.5 Code: 66558-2 Heart Rate 1: 60 bpm Height: 5'9" Weight: 139 lbs 05/20/2014 Blood Pressure 1: 140/72 Code: 8480-6 BMI: 21.6 Code: 30523-5 Heart Rate 1: 60 bpm Height: 5'9" SpO2: 98% Temperature: 36.2 (C ) / 97.2 (F) Weight: 146 lbs 03/25/2014 Blood Pressure 1: 128/60 Code: 8480-6 BMI: 21.4 Code: 50644-3 Heart Rate 1: 62 bpm Height: 5'9" Weight: 145 lbs 02/08/2014 Blood Pressure 1: 136/82 Code: 8480-6 BMI: 21.3 Code: 94833-2 Heart Rate 1: 68 bpm Height: 5'9" Weight: 144 lbs 12/24/2013 Blood Pressure 1: 122/76 Code: 8480-6 BMI: 21.6 Code: 86932-6 Heart Rate 1: 58 bpm Height: 5'9" Weight: 146 lbs 11/20/2013 Blood Pressure 1: 112/62 Code: 8480-6 BMI: 20.7 Code: 33785-4 Heart Rate 1: 56 bpm Height: 5'9" Weight: 140 lbs 10/30/2013 Blood Pressure 1: 130/68 Code: 8480-6 BMI: 20.1 Code: 44554-3 Heart Rate 1: 68 bpm Height: 5'9" SpO2: 96% Weight: 136 lbs 10/08/2013 Blood Pressure 1: 128/72 Code: 8480-6 BMI: 20.8 Code: 06321-4 Heart Rate 1: 60 bpm Height: 5'9" Temperature: 36.6 (C ) / 97.8 (F) Weight: 141 lbs 06/18/2013 Blood Pressure 1: 124/78 Code: 8480-6 BMI: 20.8 Code: 51866-5 Heart Rate 1: 64 bpm Height: 5'9" Weight: 141 lbs 04/04/2013 Blood Pressure 1: 138/60 Code: 8480-6 BMI: 20.8 Code: 16381-3 Heart Rate 1: 56 bpm Height: 5'9" Weight: 141 lbs 02/19/2013 Blood Pressure 1: 152/74 Code: 8480-6 BMI: 21.0 Code: 97634-9 Heart Rate 1: 60 bpm Height: 5'9" Weight: 142 lbs 10/16/2012 Blood Pressure 1: 122/70 Code: 8480-6 BMI: 20.8 Code: 32702-5 Heart Rate 1: 64 bpm Height: 5'9" Weight: 141 lbs 06/19/2012 Blood Pressure 1: 120/72 Code: 8480-6 BMI: 21.1 Code: 22098-7 Heart Rate 1: 60 bpm Height: 5'9" Weight: 143 lbs 03/20/2012 Blood Pressure 1: 114/76 Code: 8480-6 Heart Rate 1: 60 bpm Respiratory Rate: 16 bpm Weight: 143 lbs 01/24/2012 Blood Pressure 1: 134/70 Code: 8480-6 Heart Rate 1: 64 bpm Weight: 143 lbs 12/20/2011 Blood Pressure 1: 98/72 Code: 8480-6 BMI: 21.1 Code: 58141-3 Heart Rate 1: 60 bpm Height: 5'9" Respiratory Rate: 16 bpm Weight: 143 lbs 12/09/2011 Blood Pressure 1: 110/60 Code: 8480-6 Heart Rate 1: 66 bpm SpO2: 98% Weight: 141 lbs 08/25/2011 Blood Pressure 1: 112/70 Code: 8480-6 BMI: 20.8 Code: 26843-4 Heart Rate 1: 54 bpm Height: 5'9" Respiratory Rate: 16 bpm Weight: 141 lbs 06/23/2011 Blood Pressure 1: 126/64 Code: 8480-6 Heart Rate 1: 60 bpm Respiratory Rate: 16 bpm Weight: 142 lbs 04/19/2011 Blood Pressure 1: 124/64 Code: 8480-6 BMI: 21.1 Code: 32258-9 Heart Rate 1: 64 bpm Height: 5'9" Respiratory Rate: 16 bpm Weight: 143 lbs 03/23/2011 Blood Pressure 1: 137/71 Code: 8480-6 Heart Rate 1: 57 bpm 03/08/2011 Blood Pressure 1: 154/70 Code: 8480-6 BMI: 20.8 Code: 39658-0 Heart Rate 1: 60 bpm Height: 5'9" Respiratory Rate: 16 bpm Weight: 141 lbs 03/01/2011 Blood Pressure 1: 178/80 Code: 8480-6 Blood Pressure 2: 168/70 Code: 8480-6 BMI: 24.1 Code: 13871-4 Heart Rate 1: 60 bpm Height: 5'9" Respiratory Rate: 16 bpm Weight: 163 lbs 02/01/2011 Blood Pressure 1: 162/84 Code: 8480-6 Heart Rate 1: 60 bpm Respiratory Rate: 16 bpm Weight: 144 lbs 01/27/2011 Blood Pressure 1: 138/54 Code: 8480-6 BMI: 21.1 Code: 55092-7 Heart Rate 1: 68 bpm Height: 5'9" Respiratory Rate: 16 bpm Weight: 143 lbs 01/26/2011 Blood Pressure 1: 148/86 Code: 8480-6 BMI: 21.3 Code: 21457-1 Heart Rate 1: 74 bpm Height: 5'9" Weight: 144 lbs 01/15/2011 Blood Pressure 1: 136/76 Code: 8480-6 BMI: 20.5 Code: 66523-5 Heart Rate 1: 70 bpm Height: 5'10" Weight: 141 lbs 01/06/2011 Blood Pressure 1: 148/72 Code: 8480-6 BMI: 20.2 Code: 53060-1 Heart Rate 1: 72 bpm Height: 5'10" Respiratory Rate: 12 bpm Weight: 139 lbs Functional Status No Functional Status data History of Present Illness Symptom Name Status Resu lt Effective Date Notes Quality improving 05/18/2018 None Onset of Symptom [...] 05/20/2014 None cough Location in the [facility] 03/25/2014 None cough Quality hacking 03/25/2014 None [...] Encounters Encounter Performer Loca tion Codes Date ([id number]) [id number] EST. P ATIENT, LEVEL IV Diagnosis: Essential (primary) hypertension[ICD10: I10] Diagnosis: Nail dystrophy[ICD10: L60.3] Diagnosis: Abrasion of left upper arm, initial encounter[ICD10: S40.812A] Ale Carlos MD, [facility] CPT-4: 93925 05/18/2018 ([id number]) 69984 EST. P ATIENT, LEVEL III Diagnosis: Essential (primary) hypertension[ICD10: I10] Ale Carlos MD, [facility] CPT-4: 61486 04/13/2018 ([id number]) 98618 EST. P ATIENT, LEVEL IV Diagnosis: Irritable bowel syndrome with constipation[ICD10: K58.1] Diagnosis: Other lesions of oral mucosa[ICD10: K13.79] Diagnosis: Dry mouth, unspecified[ICD10: R68.2] Diagnosis: Encounter for immunization[ICD10: Z23] Diagnosis: Essential (primary) hypertension[ICD10: I10] Ale Carlos MD, [facility] CPT-4: 40192 02/08/2018 ([id number]) 10052 EST. P ATIENT, LEVEL III Diagnosis: Slow transit constipation[ICD10: K59.01] Diagnosis: Dry mouth, unspecified[ICD10: R68.2] Nelly Carlos MD, [facility] CPT-4: 95683 01/19/2018 ([id number]) Miscellaneou s no charge Diagnosis: Acute pharyngitis, unspecified[ICD10: J02.9] Nelly Carlos MD, [facility] CPT-4: 89948 01/13/2018 ([id number]) [id number] EST. P ATIENT, LEVEL III Diagnosis: Candidal stomatitis[ICD10: B37.0] Diagnosis: Cough[ICD10: R05] Nelly Carlos MD, [facility] CPT-4: 92449 01/12/2018 ([id number]) 25546 EST. P ATIENT, LEVEL IV Diagnosis: Essential (primary) hypertension[ICD10: I10] Diagnosis: Generalized anxiety disorder[ICD10: F41.1] Diagnosis: Major depressive disorder, single episode, mild[ICD10: F32.0] Diagnosis: Slow transit constipation[ICD10: K59.01] Ale Carlos MD, [facility] CPT-4: 90669 01/05/2018 ([id number]) 79728 EST. P ATIENT, LEVEL IV Diagnosis: Irritable bowel syndrome with constipation[ICD10: K58.1] Diagnosis: Malignant neoplasm of prostate[ICD10: C61] Ale Carlos MD, [facility] CPT-4: 76605 11/14/2017 86522 EST. PATIENT, LEVEL IV Diagnosis: Slow transit constipation[ICD10: K59.01] Diagnosis: Gastro-esophageal reflux disease without esophagitis[ICD10: K21.9] Ruchi Carlos MD, [facility] CPT-4: 20772 2017 ([id number]) 38473 EST. P ATIENT, LEVEL IV Diagnosis: Essential (primary) hypertension[ICD10: I10] Diagnosis: Slow transit constipation[ICD10: K59.01] Diagnosis: Underweight[ICD10: R63.6] Diagnosis: Gastro-esophageal reflux disease without esophagitis[ICD10: K21.9] Ale Carlos MD, [facility] CPT-4: [address]696 10/13/2017 ([id number]) 80523 EST. P ATIENT, LEVEL IV Diagnosis: Slow transit constipation[ICD10: K59.01] Diagnosis: Gastroparesis[ICD10: K31.84] Diagnosis: Gastro-esophageal reflux disease without esophagitis[ICD10: K21.9] Diagnosis: Dysuria[ICD10: R30.0] Ale Carlos MD, [facility] CPT-4: 96293 09/26/2017 ([id number]) 79890 EST. P ATIENT, LEVEL IV Diagnosis: Other abnormal glucose[ICD10: R73.09] Diagnosis: Slow transit constipation[ICD10: K59.01] Ale Carlos MD, C CPT-4: 21705 09/12/2017 28743 EST. PATIENT, LEVEL III Diagnosis: Other fatigue[ICD10: R53.83] Ruchi Carlos MD, [facility] CPT-4: 60928 09/09/2017 ([id number]) 01572 EST. P ATIENT, LEVEL IV Diagnosis: Slow transit constipation[ICD10: K59.01] Diagnosis: Irritable bowel syndrome with constipation[ICD10: K58.1] Diagnosis: Essential (primary) hypertension[ICD10: I10] Ale Carlos MD, C CPT-4: 99040 08/17/2017 ([id number]) 01265 EST. P ATIENT, LEVEL III Diagnosis: Slow transit constipation[ICD10: K59.01] Diagnosis: Gastroparesis[ICD10: K31.84] Ale Carlos MD, [facility] CPT-4: 48626 07/20/2017 71787 EST. PATIENT, LEVEL III Diagnosis: Irritable bowel syndrome with constipation[ICD10: K58.1] Ruchi Carlos MD, [facility] CPT-4: 54743 07/01/2017 ([id number]) 17948 EST. P ATIENT, LEVEL IV Diagnosis: Essential (primary) hypertension[ICD10: I10] Diagnosis: Gas pain[ICD10: R14.1] Diagnosis: Generalized anxiety disorder[ICD10: F41.1] Diagnosis: Cervicalgia[ICD10: M54.2] Diagnosis: Pain in thoracic spine[ICD10: M54.6] Diagnosis: Unsteadiness on feet[ICD10: R26.81] Ale Carlos MD, [facility] CPT- 4: 83113 06/21/2017 ([id number]) 62451 EST. P ATIENT, LEVEL III Diagnosis: Essential (primary) hypertension[ICD10: I10] Ale Carlos MD, [facility] CPT-4: 07560 03/21/2017 82358 EST. PATIENT, LEVEL III Diagnosis: Other allergic rhinitis[ICD10: J30.89] Nelly Carlos MD, [facility] CPT-4: 78874 03/08/2017 ([id number]) 24736 EST. P ATIENT, LEVEL III Diagnosis: Encounter for immunization[ICD10: Z23] Diagnosis: Other hypotension[ICD10: I95.89] Ale Carlos MD, [facility] CPT-4: 10192 01/25/2017 ([id number]) 69715 EST. P ATIENT, LEVEL III Diagnosis: Essential (primary) hypertension[ICD10: I10] Diagnosis: Acute recurrent maxillary sinusitis[ICD10: J01.01] Ale Carlos MD, C CPT-4: 14275 12/20/2016 ([id number]) 24936 EST. P ATIENT, LEVEL III Diagnosis: Acute recurrent ethmoidal sinusitis[ICD10: J01.21] Ale Carlos MD, C CPT-4: 90590 12/01/2016 ([id number]) 35089 EST. P ATIENT, LEVEL III Diagnosis: Bronchitis, not specified as acute or chronic[ICD10: J40] Diagnosis: Cough[ICD10: R05] Ale Carlos MD, [facility] CPT-4: 82869 11/25/2016 ([id number]) 19222 EST. P ATIENT, LEVEL III Diagnosis: Cough[ICD10: R05] Diagnosis: Bronchitis, not specified as acute or chronic[ICD10: J40] Diagnosis: Candidal esophagitis[ICD10: B37.81] Ale Carlos MD, [facility] CPT- 4: 94780 11/18/2016 ([id number]) 34779 EST. P ATIENT, LEVEL IV Diagnosis: Essential (primary) hypertension[ICD10: I10] Diagnosis: Mild cognitive impairment, so stated[ICD10: G31.84] Ale Carlos MD, C CPT-4: 41808 08/23/2016 ([id number]) 22099 EST. P ATIENT, LEVEL III Diagnosis: Essential (primary) hypertension[ICD10: I10] Ale Carlos MD, [facility] CPT-4: 61864 04/26/2016 ([id number]) Miscellaneou s no charge Diagnosis: Olecranon bursitis, right elbow[ICD10: M70.21] Nelly Carlos MD, [facility] CPT-4: 84338 02/09/2016 ([id number]) 15822 EST. P ATIENT, LEVEL III Diagnosis: Olecranon bursitis, right elbow[ICD10: M70.21] Nelly Carlos MD, [facility] CPT-4: 10958 02/03/2016 ([id number]) 29662 EST. P ATIENT, LEVEL III Diagnosis: Generalized abdominal tenderness[ICD10: R10.817] Ale Carlos MD, C CPT-4: 56849 01/26/2016 10254 EST. PATIENT, LEVEL IV Diagnosis: Other allergic rhinitis[ICD10: J30.89] Ruchi Carlos MD, [facility] CPT-4: 07497 01/21/2016 ([id number]) 98823 EST. P ATIENT, LEVEL IV Diagnosis: Essential (primary) hypertension[ICD10: I10] Diagnosis: Hypo-osmolality and hyponatremia[ICD10: E87.1] Ale Carlos MD, [facility] CPT-4: 14352 12/29/2015 ([id number]) 45796 EST. P ATIENT, LEVEL IV Diagnosis: Essential (primary) hypertension[ICD10: I10] Diagnosis: Mild cognitive impairment, so stated[ICD10: G31.84] Ale Carlos MD, [facility] CPT-4: 26574 09/02/2015 ([id number]) 33633 EST. P ATIENT, LEVEL IV Diagnosis: Mixed hyperlipidemia[ICD10: E78.2] Diagnosis: Generalized anxiety disorder[ICD10: F41.1] Diagnosis: Mild cognitive impairment, so stated[ICD10: G31.84] Diagnosis: Essential (primary) hypertension[ICD10: I10] Diagnosis: Encounter for immunization[ICD10: Z23] Ale Carlos MD, [facility] CPT-4: 28529 05/06/2015 ([id number]) 73308 EST. 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 P ATIENT, LEVEL IV Diagnosis: ESSENTIAL HYPERTENSION[ICD9: 401.9] Diagnosis: GENERALIZED ANXIETY DISEASE[ICD9: 300.02] Diagnosis: MILD COGNITIVE IMPAIREMT[ICD9: 331.83] Diagnosis: IRRITABLE COLON[ICD9: 564.1] Ale Carlos MD, [facility] CPT-4: 67156 12/04/2014 ([id number]) 87268 EST. P ATIENT, LEVEL IV Diagnosis: Abdominal pain[ICD9: 789.00] Diagnosis: GENERALIZED ANXIETY DISEASE[ICD9: 300.02] Diagnosis: Hyponatremia[ICD9: 276.1] Diagnosis: ESSENTIAL HYPERTENSION[ICD9: 401.9] Nelly Carlos MD, [facility] CPT-4: 14759 09/24/2014 ([id number]) 61526 EST. P ATIENT, LEVEL IV Diagnosis: ESSENTIAL HYPERTENSION[ICD9: 401.9] Diagnosis: Osteoarthritis[ICD9: 715.90] Diagnosis: Mild cognitive impairment with memory loss[ICD9: 331.83] Ale Carlos MD, C CPT-4: 42585 09/09/2014 ([id number]) 43645 EST. P ATIENT, LEVEL III Diagnosis: GENERALIZED ANXIETY DISEASE[ICD9: 300.02] Diagnosis: Depression[ICD9: 311] Ale Carlos MD, [facility] CPT-4: 24359 07/26/2014 ([id number]) 76020 EST. P ATIENT, LEVEL IV Diagnosis: ESSENTIAL HYPERTENSION[ICD9: 401.9] Diagnosis: GENERALIZED ANXIETY DISEASE[ICD9: 300.02] Diagnosis: MILD COGNITIVE IMPAIREMT[ICD9: 331.83] Ale Carlos MD, [facility] CPT-4: 55534 07/10/2014 ([id number]) 68138 EST. P ATIENT, LEVEL IV Diagnosis: Dizziness[ICD9: 780.4] Diagnosis: GENERALIZED ANXIETY DISEASE[ICD9: 300.02] Diagnosis: Depression[ICD9: 311] Diagnosis: ESSENTIAL HYPERTENSION[ICD9: 401.9] Diagnosis: Urinary frequency[ICD9: 788.41] Ale Carlos MD, [facility] CPT-4: 11740 06/06/2014 ([id number]) 27766 EST. P ATIENT, LEVEL IV Diagnosis: ESSENTIAL HYPERTENSION[ICD9: 401.9] Diagnosis: GENERALIZED ANXIETY DISEASE[ICD9: 300.02] Diagnosis: Mild cognitive impairment with memory loss[ICD9: 331.83] Ale Carlos MD, [facility] CPT-4: 65216 05/29/2014 ([id number]) 29211 EST. P ATIENT, LEVEL IV Diagnosis: Pneumonia[ICD9: 486] Diagnosis: COUGH[ICD9: 786.2] Diagnosis: Hyponatremia[ICD9: 276.1] Diagnosis: ALLERGIC RHINITIS[ICD9: 477.9] Ale Carlos MD, [facility] CPT-4: 91088 05/20/2014 ([id number]) 35012 EST. P ATIENT, LEVEL III Diagnosis: ESSENTIAL HYPERTENSION[ICD9: 401.9] Diagnosis: Cough[ICD9: 786.2] Ale Carlos MD, [facility] CPT-4: 42317 03/25/2014 ([id number]) 42086 EST. P ATIENT, LEVEL III Diagnosis: COUGH[ICD9: 786.2] Diagnosis: ALLERGIC RHINITIS[ICD9: 477.9] [facility] CPT- 4: 42548 02/08/2014 ([id number]) 30883 EST. P ATIENT, LEVEL III Diagnosis: ESSENTIAL HYPERTENSION[ICD9: 401.9] Diagnosis: Nasal congestion[ICD9: 478.19] Ale Carlos MD, [facility] CPT-4: 68099 12/24/2013 ([id number]) 76195 EST. P ATIENT, LEVEL III Diagnosis: Seasonal allergies[ICD9: 477.9] Diagnosis: Nasal congestion[ICD9: 478.19] Diagnosis: ABNORMAL LOSS OF WEIGHT[ICD9: 783.21] Ale Carlos MD, [facility] CPT-4: 51668 11/20/2013 ([id number]) 95552 EST. P ATIENT, LEVEL III Diagnosis: ABNORMAL LOSS OF WEIGHT[ICD9: 783.21] Diagnosis: MALAISE AND FATIGUE[ICD9: 780.79] Diagnosis: Hyponatremia[ICD9: 276.1] [facility] CPT- 4: 46449 10/30/2013 ([id number]) 99461 EST. P ATIENT, LEVEL III Diagnosis: Acute maxillary sinusitis[ICD9: 461.0] Diagnosis: COUGH[ICD9: 786.2] [facility] CPT-4: 23489 10/08/2013 ([id number]) 52138 EST. P ATIENT, LEVEL IV Diagnosis: ESSENTIAL HYPERTENSION[SNOMED: 39144046] Diagnosis: GENERALIZED ANXIETY DISEASE[ICD9: 300.02] Diagnosis: OSTEOARTH NOS-UNSPEC[ICD9: 715.90] Diagnosis: Coronary artery disease[ICD9: 414.00] [facility] CPT-4: 57630 06/18/2013 ([id number]) 11639 EST. P ATIENT, LEVEL III Diagnosis: ESSENTIAL HYPERTENSION[SNOMED: 02376652] Ale Carlos MD, [facility] CPT-4: 10568 04/04/2013 ([id number]) 88290 EST. P ATIENT, LEVEL IV Diagnosis: ESSENTIAL HYPERTENSION[SNOMED: 60253467] Diagnosis: Leukopenia[ICD9: 288.50] Diagnosis: Encounter for long-term (current) use of other medications[ICD9: V58.69] Ale Carlos MD, [facility] CPT-4: 23877 02/19/2013 ([id number]) 77241 EST. P ATIENT, LEVEL IV Diagnosis: ESSENTIAL HYPERTENSION[SNOMED: 38903955] Diagnosis: MILD COGNITIVE IMPAIREMT[ICD9: 331.83] Ale Carlos MD, [facility] CPT-4: 14029 10/16/2012 ([id number]) 02048 EST. P ATIENT, LEVEL IV Diagnosis: ESSENTIAL HYPERTENSION[SNOMED: 25170261] Diagnosis: GENERALIZED ANXIETY DISEASE[ICD9: 300.02] Diagnosis: IRRITABLE COLON[ICD9: 564.1] Ale Carlos MD, [facility] CPT-4: 38060 03/20/2012 60217 EST. PATIENT, LEVEL IV Diagnosis: ESSENTIAL HYPERTENSION[SNOMED: 56098486] Diagnosis: Osteoarthritis[ICD9: 715.90] Diagnosis: HYPERLIPIDEMIA[ICD9: 272.4] Ale Carlos MD, [facility] CPT-4: 83314 01/24/2012 95347 EST. PATIENT, LEVEL IV Diagnosis: ESSENTIAL HYPERTENSION[SNOMED: 75828742] Diagnosis: BPH W URINARY OBS/LUTS[ICD9: 600.01] Ale Carlos MD, [facility] CPT-4: 64709 12/20/2011 ([id number]) 03704 EST. P ATIENT, LEVEL III Diagnosis: Lump in the groin[ICD9: 789.30] Ale Carlos MD, [facility] CPT-4: 90910 12/09/2011 ([id number]) 31612 EST. P ATIENT, LEVEL IV Diagnosis: ESSENTIAL HYPERTENSION[SNOMED: 08205021] Diagnosis: Mild cognitive impairment[ICD9: 331.83] Ale Carlos MD, [facility] CPT-4: 21892 08/25/2011 ([id number] 93256 EST. P ATIENT, LEVEL IV Diagnosis: ESSENTIAL HYPERTENSION[SNOMED: 39770666] Diagnosis: GENERALIZED ANXIETY DISEASE[ICD9: 300.02] Diagnosis: MILD COGNITIVE IMPAIREMT[ICD9: 331.83] Diagnosis: IRRITABLE COLON[ICD9: 564.1] Ale Carlos MD, [facility] CPT-4: 71808 06/23/2011 ([id number]) 29370 EST. 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 PATIENT, LEVEL I Diagnosis: ESSENTIAL HYPERTENSION[SNOMED: 48510839] Ale Carlos MD, [facility] CPT-4: 94494 03/23/2011 48270 EST. PATIENT, LEVEL III Diagnosis: ESSENTIAL HYPERTENSION[SNOMED: 56701648] Diagnosis: Laceration of finger, index[ICD9: 883.0] Ale Carlos MD, [facility] CPT-4: 61612 03/08/2011 98002 EST. PATIENT, LEVEL III Diagnosis: ESSENTIAL HYPERTENSION[SNOMED: 48832730] Diagnosis: Irritable bowel syndrome (IBS)[ICD9: 564.1] Ale Carlos MD, [facility] CPT-4: 33006 03/01/2011 62774 EST. PATIENT, LEVEL IV Diagnosis: Mild cognitive impairment with memory loss[ICD9: 331.83] Diagnosis: GENERALIZED ANXIETY DISEASE[ICD9: 300.02] Diagnosis: Bruising[ICD9: 924.9] Diagnosis: HYDROCELE[ICD9: 603.9] Ale Carlos MD, [facility] CPT-4: 50668 02/01/2011 64576 EST. PATIENT, LEVEL III Diagnosis: Testicular pain[ICD9: 608.9] Diagnosis: GENERALIZED ANXIETY DISEASE[ICD9: 300.02] [facility] CPT-4: 52153 01/27/2011 23226 EST. PATIENT, LEVEL III Diagnosis: Arm bruise[ICD9: 923.9] [facility] CPT-4: 31658 01/26/2011 OFFICE VISIT, NEW - LEVEL 4 Diagnosis: DIARRHEA[ICD9: 787.91] Diagnosis: Elevated liver function tests[ICD9: 790.6] Diagnosis: Abdominal discomfort[ICD9: 789.00] Ale Carlos MD, [facility] CPT- 4: 47020 01/06/2011 Plan of Care Planned Activity Notes [...] nail debridement. 05/18/2018 Appointment: Ale Carlos WPtel: [facility] (15 min) Moderate 05/18/2018 Patient Education: [...] mouth discomfort. 04/13/2018 Appointment: [facility] [phone] [facility] (30 min) Complex 04/13/2018 Patient Education: Patient [...] GI upset. 02/08/2018 Appointment: Ale Carlos WPtel: [facility] (30 min) Complex 02/08/2018 Patient Education: Patient Medication Summary Completed 02/08/2018 Patient Education: Hypertension Completed 02/08/2018 Appointment: Nelly Keen WPtel: [facility]5 [phone] (15 min) Moderate 02/02/2018 Visit Plan: Pfxitofaygql-eemnyvx-vh start trulance 3mg daily Dry mouth-biotene mouth spray 01/19/2018 Appointment: Ale Carlos WPtel: [address] [place], [place] [phone] (30 min) Complex 01/19/2018 Patient Education: Patient [...] or concerns 01/12/2018 Appointment: Nelly Keen WPtel: [address] [place], [place] [phone] (15 min) Moderate 01/12/2018 Patient Education: Patient [...] be helping his symptoms. 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 I have recommended that he is to eat 1/2 a sandwich with his ensure at bedtime. 01/05/2018 Appointment: Ale Carlos WPtel: [facility] (15 min) Moderate 01/05/2018 Patient Education: Patient Medication Summary Completed 01/05/2018 Appointment: Ale [facility]el[facility] [phone] [facility] (30 min) Complex 01/04/2018 Visit Plan: Irritable [...] 11/03/2017 Care Plan: Referral Order SNOMED-CT : 329888439 Pending 10/28/2017 Visit Plan: Constipation - uncontro [...] not improving. 2017 Appointment: Ruchi Agee WPtel: [facility]5 [facility] (15 min) Moderate 2017 Patient Education: Patient [...] portion size. 10/13/2017 Appointment: Ale Carlos WPtel: [facility] (30 min) Complex 10/13/2017 Patient Education: Patient [...] the medication. 09/26/2017 Appointment: Ale Carlos WPtel: [facility] (15 min) Moderate 09/26/2017 Patient Education: Patient Medication Summary Completed 09/26/2017 Appointment: Ale Carlos WPtel: [address] [place], [place] [phone] (30 min) Complex 09/14/2017 Visit Plan: Constipation [...] the ER. 09/12/2017 Appointment: Ale Carlos WPtel: [facility] [place] (30 min) Complex 09/12/2017 Patient Education: Patient Medication Summary Completed 09/12/2017 Visit Plan: Ongoing fatigue - persi stent - will check labs and treat as indicated - pt is to notify clinic if symptoms do not improve, if they worsen, or with any changes, questions, or concerns. 09/09/2017 Appointment: Ruchi Agee WPtel: [facility] [place] (30 min) Complex 09/09/2017 Patient Education: Patient [...] at home. 08/17/2017 Appointment: Ale Carlos WPtel: [facility] (15 min) Moderate 08/17/2017 Patient Education: Patient [...] regular foods. 07/20/2017 Appointment: Ale Carlos WPtel: [facility] (30 min) Complex 07/20/2017 Appointment: Ale Carlos WPtel: [address] [place] [address] [place] (30 min) Complex 07/20/2017 Patient Education: Patient Medication Summary Completed 07/20/2017 Appointment: Ale Carlos WPtel: [phone] [facility] [place] (30 min) Complex 07/19/2017 Appointment: Ale Carlos WPtel: [facility] [place] (15 min) Moderate 07/18/2017 Visit Plan: Constipation - uncontro lled - I have discussed with the patient the need for adequate fiber and water intake to facilitate soft, easily passed stools. The pt noted understanding of our conversation. I kika paniagua given the patient a recipe for "power pudding" - equal parts, bran flakes, prune juice, and apple sauce. The pt is to call if symptoms not improved on this regimen. 07/01/2017 Appointment: Ruchi Agee WPtel: [facility] (30 min) Complex 07/01/2017 Appointment: Ruchi Agee WPtel: [facility] (30 min) Complex 07/01/2017 Patient Education: Patient Medication Summary Completed 07/01/2017 Visit Plan: Neck and upper back reji n and gait unsteadiness - referral to Ul[facility] castañeda for upper and low back pain and left arm pain and have gait eval. get Aspercreme from [employer] for your upper neck/upper back. Abdominal upset/cramping - lactaid pills - take before you drink milk or eat cheese or ice cream or yogurt use gas-ex one pill three times daily Chronic anxiety - stable - continue with current management. 06/21/2017 Appointment: Ale Carlos WPtel: [facility]3 [facility] (30 min) Complex 06/21/2017 Patient Education: [...] at home. 03/21/2017 Appointment: Ale Carlos WPtel: [facility] (30 min) Complex 03/21/2017 Patient Education: [...] spray. 03/08/2017 Appointment: Nelly Keen WPtel: [phone] [phone] (30 min) Complex 03/08/2017 Patient Education: Patient [...] flu shot 01/25/2017 Appointment: Ale Carlos WPtel: [facility]3 [place] [phone] (30 min) Complex 01/25/2017 Patient Education: Patient [...] not improving. 12/20/2016 Appointment: Ale Carlos WPtel: [facility] (30 min) Complex 12/20/2016 Patient Education: Patient Medication Summary Completed 12/20/2016 Patient Education: Hypertension Completed 12/20/2016 Appointment: Ruchi Agee WPtel: [facility]7 [facility] [place] [address] - Annual Wellness Visit 12/03/2016 Visit Plan: [...] worsen. 11/25/2016 Appointment: Ale Carlos WPtel: [phone] [facility] (15 min) Moderate 11/25/2016 Patient Education: Patient [...] thrush. 11/18/2016 Appointment: Ale Carlos WPtel: [phone] [facility] (15 min) Moderate 11/18/2016 Patient Education: Patient [...] and namenda. labs to be done from [facility] 08/23/2016 Appointment: Ale Carlos WPtel: [facility]8 [facility] (30 min) Complex 08/23/2016 Patient [...] home. 04/26/2016 Appointment: Ale Carlos WPtel: [phone] [facility] (30 min) Complex 04/26/2016 Patient Education: Patient Medication Summary Completed 04/26/2016 Visit Plan: Joint effusion - recomm ended drainage and referral to orthopedic surgeon for surgical debridement of bursa 02/17/2016 Appointment: Ale Carlos WPtel: [phone] [facility] (30 min) Complex 02/17/2016 Patient Education: Patient Medication Summary Completed 02/17/2016 Visit Plan: Bursitis-right elbow-dr healy today in the office- increase anti inflammatories for the next 5 days as directed-call if symptoms do not resolve, swelling returns or new symptoms develop-patient verbalized understanding of plan. 02/09/2016 Appointment: Nelly Keen WPtel: [phone] (30 min) Complex 02/09/2016 Patient Education: Patient Medication Summary Completed 02/09/2016 Patient Education: Patient Medication Summary Completed 02/05/2016 Care Plan: Metabolic Pending 02/05/2016 Visit Plan: Bursitis-right elbow-dr healy today in the office- increase anti inflammatories for the next 5 days as directed-call if symptoms do not resolve, swelling returns or new symptoms develop-patient verbalized understanding of plan. 02/03/2016 Appointment: Nelly Keen WPtel: [phone] (30 min) Complex 02/03/2016 Patient Education: Patient Medication Summary Completed 02/03/2016 Patient Education: Patient Medication Summary Completed 01/30/2016 Care Plan: Metabolic Due on Pending 01/30/2016 Visit Plan: Abdominal pain - nausea - Pt to have IV fluids at hospital 01/26/2016 Appointment: Ale Carlos [facility]Ptel: [phone] [facility] (30 min) Complex 01/26/2016 Patient Education: Patient [...] spray. 01/21/2016 Appointment: Nelly Keen WPtel: [phone] [phone] (30 min) Complex 01/21/2016 Patient Education: Patient [...] treatment. 09/02/2015 Appointment: Ale Carlos WPtel: [phone] [facility] (15 min) Moderate 09/02/2015 Patient Education: Patient [...] today 05/06/2015 Appointment: Ale Carlos [facility]Ptel: [phone] [facility] (15 min) Moderate 05/06/2015 Patient Education: Patient Medication Summary Completed 05/06/2015 Patient Education: Hypertension Completed 05/06/2015 Care Plan: COMPLETE CBC AUTOMATED LOINC : 47806-1 Ordered 05/06/2015 Visit Plan: Hypertension - well [...] current medications. 03/05/2015 Appointment: Ale Carlos WPtel: [phone] [facility] (30 min) Complex 03/05/2015 Patient Education: Patient [...] -has improved. 12/04/2014 Appointment: Ale Carlos WPtel: [facility] Follow up 12/04/2014 Patient Education: Patient Medication [...] Plan: CT ABD & PELV 1/> REGNS [facility] : 17148-2 Ordered 09/24/2014 Visit Plan: Hypertension - well [...] THAT HE SHOULD NOT BE DRIVING TO [place] 07/26/2014 Appointment: Sick 07/26/2014 Appointment: Sick 07/26/2014 [...] medication list. 07/10/2014 Appointment: Ale Carlos WPtel: [facility]5 [facility] Follow up 07/10/2014 Patient Education: Patient Medication Summary Completed 07/10/2014 Patient Education: Hypertension Completed 07/10/2014 Appointment: Ale Carlos WPtel: [facility] Follow up 06/20/2014 Appointment: Ale Carlos WPtel: [facility] Follow up 06/10/2014 Visit Plan: [...] in blood pressure readings at home. Urinary ogatlncbi-HUG-rrmjyp flomax to bedtime Dizziness-stop hydrocodone and ativan [...] WEEKS 05/29/2014 Appointment: Ale Carlos [facility]Ptel: [phone] [facility] Sick 05/29/2014 Patient Education: Patient Medication Summary Completed 05/29/2014 Patient Education: Hypertension Completed 05/29/2014 Appointment: Ale Carlos WPtel: [phone] [facility] Lab Draw 05/23/2014 Patient Education: Patient Medication Summary Completed 05/23/2014 Visit Plan: Pneumonia - Pt has been diagnosed with pneumonia by physical exam. A chest xray has been ordered as have antibiotics. The pt is aware of the diagnosis and the need for acute treatment of this illness. A aeqacnhd-embvh-bbgjuzx flonase nasal spray Hyponatremia-increase gatorade as directed 05/20/2014 Visit Plan: Pneumonia - Pt has been diagnosed with pneumonia by physical exam. A chest xray has been ordered as have antibiotics. The pt is aware of the diagnosis and the need for acute treatment of this illness. A bhdrsrwk-gcrlk-qntgved flonase nasal spray Hyponatremia-increase gatorade as directed ADDENDUM: RECOMMEND PATIENT START ON ALBUTEROL NEBULIZER TREATMENTS EVERY 4 HOURS NEEDED FOR SHORTNESS OF BREATH/WHEEZING. DX SECONDARY PNEUMONIA FROM INFLUENZA, COUGH 05/20/2014 Patient Education: Patient Medication Summary Completed 05/20/2014 Appointment: [facility] [phone] [facility] [place] Injection 03/26/2014 Patient Education: Patient Medication [...] Dr. Merlos. 03/25/2014 Appointment: Ale Carlos WPtel: [facility] Follow up 03/25/2014 Patient Education: Patient Medication Summary Completed 03/25/2014 Patient Education: Hypertension Completed 03/25/2014 Visit Plan: Mxauh-uriclbyvw-csmvhus laryngeal reflux-RX for protonix (patient is on [...] at home. 12/24/2013 Appointment: Ale Carlos WPtel: [facility] Follow up 12/24/2013 Patient Education: [...] portion size. 11/20/2013 Appointment: Ale Carlos WPtel: [facility] Follow up 11/20/2013 Patient Education: Patient Medication Summary Completed 11/20/2013 Appointment: Ale Carlos WPtel: [facility] [place] Follow up 11/06/2013 Visit Plan: Weight loss-increase po rtions-add snacks in the morning and afternoon-follow up in 3 weeks for weight check Low sodium-check labs-restart gatorade Bvfnkwj-krmslf-znmua labs and UA 10/30/2013 Patient Education: Patient Medication Summary Completed 10/30/2013 Appointment: Ale Carlos WPtel: [phone] [facility] Follow up 10/16/2013 Visit Plan: Sinusitis - [...] with treatment per Dr. Merlos. 06/18/2013 Appointment: lAe Carlos WPtel: [phone] [facility] Follow up 06/18/2013 Patient Education: [...] concerns. 04/04/2013 Appointment: Ale Carlos WPtel: [phone] [facility] Follow up 04/04/2013 Patient Education: Patient Medication [...] report. 02/19/2013 Appointment: Ale Carlos WPtel: [phone] [facility] Follow up 02/19/2013 Patient Education: [...] loss. 10/16/2012 Appointment: [phone] [facility] Follow up 10/16/2012 Patient Education: Patient Medication [...] colon return. 06/19/2012 Appointment: Ale Carlos WPtel: [phone] [facility] [place] Follow up 06/19/2012 Patient Education: Patient [...] bentyl. 03/20/2012 Appointment: [phone] [facility] [place] Follow up 03/20/2012 Patient Education: Patient Medication Summary Completed 03/20/2012 Patient Education: High Blood Pressure: Essential Hypertension Completed 03/20/2012 Appointment: Ale Carlos WPtel: [phone] [facility] [place] Follow up 02/22/2012 Visit Plan: Hypertension [...] needed. 01/24/2012 Appointment: [phone] [facility] Follow up 01/24/2012 Patient Education: Patient Medication [...] have the biopsy until okayed by his spark tester.. I anticipate it will be at least 4-6 months before he can be off of the plavix and aspirin for additonal procedures unless it is of extreme urgency. 12/20/2011 Appointment: [facility]el[phone] [facility] Follow up 12/20/2011 Patient Education: Patient Medication Summary Completed 12/20/2011 Patient Education: High Blood Pressure: Essential Hypertension Completed 12/20/2011 Appointment: Ale Carlos WPtel: [phone] [facility] Other 12/13/2011 Visit Plan: Pain in groin post hear t cath with increased discomfort and increased size - will order an ultrasound for today. 12/09/2011 Appointment: Ale Carlos WPtel: [facility] Other 12/09/2011 Patient Education: Patient Medication Summary Completed 12/09/2011 Visit Plan: Hypertension - well con arnoldoed - continue with current medications, continue with [...] either medication. 08/25/2011 Appointment: Ale Carlos WPtel: [address] [place], [place] [id number] [place] Other 08/25/2011 Patient Education: Patient Medication [...] low doses. 06/23/2011 Appointment: Ale Carlos WPtel: [address] [place], [place] [id number] Other 06/23/2011 Patient Education: Patient Medication Summary Completed 06/23/2011 Patient Education: High Blood Pressure: Essential Hypertension Completed 06/23/2011 Appointment: Ale Carlos WPtel: [address] [place] [address] Other 04/26/2011 Visit Plan: Hypertension - well [...] seeds, etc. 04/19/2011 Appointment: Ale Carlos WPtel: [address] [place] [address] Other 04/19/2011 Patient Education: Patient Medication Summary Completed 04/19/2011 Patient Education: High Blood Pressure: Essential Hypertension Completed 04/19/2011 Patient Education: Diverticulosis Diet Completed 04/19/2011 Appointment: Nelly Keen WPtel: [address] [place], [place] [id number] [place] [address] Other 03/23/2011 Patient Education: Patient Medication Summary Completed 03/23/2011 Patient Education: High Blood Pressure: Essential Hypertension Completed 03/23/2011 Visit Plan: Record blood pressure a nd heart rate at home and drop the readings by the office in two weeks. No change in medications today. Laceration - removed suture today - pt to call if any complications arise. 03/08/2011 Appointment: Ale Carlos WPtel: [address] [place] [address] Other 03/08/2011 Patient Education: Patient Medication Summary [...] a day. 03/01/2011 Appointment: Ale Carlos WPtel: [facility] [place] Other 03/01/2011 Patient Education: Patient Medication Summary Completed 03/01/2011 Patient Education: High Blood Pressure: Essential Hypertension Completed 03/01/2011 Appointment: N[facility] Keen [facility]el: [phone] [phone] [place] Injection 02/25/2011 Patient Education: Patient Medication Summary Completed 02/25/2011 Appointment: [facility]el: [phone] [facility] [place] Injection 02/16/2011 Patient Education: Patient Medication Summary Completed 02/16/2011 Appointment: Ale [facility]Ptel: [phone] [facility] [place] Injection 02/09/2011 Patient Education: Patient Medication Summary Completed 02/09/2011 Appointment: Ale Carlos WPtel: [facility] Follow up 02/02/2011 Visit Plan: Hydrocele and [...] his condition with his son - Kenji Dahs in [place]. Upon our conversation djap-qge-qvcof, Kenji vocalized concerns for his Dad's memory. He stated that he has noticed his father not being as quick in his cognitive functioning, he has noticed some concerns with driving as well. He states that he will discuss these concerns with his parents and other siblings. 02/01/2011 Appointment: Ale Carlos WPtel: [facility] Other 02/01/2011 Patient Education: Patient [...] as needed. 01/27/2011 Appointment: Ale Carlos WPtel: [address] [place] [address] [place] New Patient 01/27/2011 Patient Education: Patient Medication Summary Completed 01/27/2011 Visit Plan: Bruising/hematoma left arm-discussed natural and expected course of this diagnosis and to alert me if symptoms do not follow expected course or if any worse, Continue with ice/heat as needed for disc omfort. Call for any concerns. 01/26/2011 Appointment: Nelly Keen WPtel: [phone] Other 01/26/2011 Patient Education: Patient Medication Summary [...] [facility]Ptel: [phone] [phone] [place] [...] free diet. 01/06/2011 Appointment: Ale Carlos [facility]Ptel: [phone] [facility] [place] New Patient 01/06/2011 Patient Education: Patient Medication Summary Completed 01/06/2011 Referral: External, Ordering Provider Referral Relationship Instructions Comment . Hypertension and C oronary artery disease- [...] have the biopsy until okayed by his spark tester.. I anticipate it will be at least 4-6 months before he can be off of the plavix and aspirin for additonal procedures unless it is of extreme urgency. CHECK LABS-CBC, CMP, UA WITH C&S IF INDICATED . Weight loss-increase portions-add snac ks in the morning and afternoon-follow up in 3 weeks for weight check Low sodium-check labs-restart gatorade Ifrbtzu-krjdvt-joilk labs and UA . Joint effusion - [...] need for acute treatment of this illness. Ovsiywiek-mkhdb-kbbvonb flonase nasal spray Hyponatremia-increase gatorade as directed . Pneumonia - Pt has been diagnosed with pneumonia by physical exam. A chest xray has been ordered as have antibiotics. The pt is aware of the diagnosis and the need for acute treatment of this illness. Fghcqksnt-yvrat-lmgjjtn flonase nasal spray Hyponatremia-increase gatorade as directed ADDENDUM: RECOMMEND PATIENT START ON ALBUTEROL NEBULIZER TREATMENTS EVERY 4 HOURS NEEDED FOR SHORTNESS OF BREATH/WHEEZING. DX SECONDARY PNEUMONIA FROM INFLUENZA, COUGH . Constipation - [facility] - I [...] and swallow - you have thrush. . Constipation - [facility] - pt [...] are not improving. . Hypertension - [facility] ontrolled - the patient's medications have been [...] be helping his symptoms. 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 I have recommended that he is [...] twice HTN-well controlled-no change in treatment . Kngwh-dlgsdpsid-cd spect laryngeal reflux-RX for protonix (patient is [...] IN THE EVENING OF 01/15/11 Appointment [address] [place] [address] Carlos. Recommend Lactobacillus 1 orally [...] with his son - Kenji Dash in [place]. Upon our conversation uuxh-izs-fmnae, Kenji vocalized concerns for his Dad's memory. He stated that he has noticed his father not being as quick in his cognitive functioning, he has noticed some concerns with driving as well. He states that he will discuss these concerns with his parents and other siblings. Blood pressure check today in the office-improving. [...] and namenda. labs to be done from [facility] Trulance 3mg daily biotene dry mouth spray -it is over the counter . Xdrwqacrxqya-flenusq-yzimkni trulance 3mg daily Dry mouth-biotene mouth spray [...] THAT HE SHOULD NOT BE DRIVING TO [place] Pt is to try 1/2 pil l [...] in blood pressure readings at home. Urinary mmgoqqvag-AWI-fnbqgq flomax to bedtime Dizziness-stop hydrocodone and ativan [...] with use of mobic at low doses. stop losartan - [facility] blood pressure and heart rate [...] acute concerns. for now - keep on th e Miralax - use the miralax daily [...]
--- OUTSIDE RECORDS SUMMARY | 2019-07-16 07:53 | XMS REPORT | CCD ---
Author Author Kenneth Carlos Organization Ale Carlos MD, [facility] Address [address] [place] [address] Phone Care Team Providers Care Firer Boiler Name Role Phone Ale Carlos PP Unavailable CCM Unavailable Summary Purpose Interface Exchange Insurance Providers Payer name Policy type / Coverage type Covered green party ID Effective Begin Date Effective End Date WPS Medicare Part B Medicare Part B [id number] Unknown Unknown [facility] icare Part B [id number] Unknown Unk nown Family history Runs in the family Diagnosis Age At Onset No Family Disease Entered N/A Mother Diagnosis Age At Onset No Family Disease Entered N/A Father Diagnosis Age At Onset Heart disease Unknown Social History Social History Element Codes Description Effective Dates Number of children Unknown 3 ([place], [place], [place]) 10/14/19 18 Living arrangements Unknown House 01/11/2011 Number of adults in household Unknown 2 01/11/2011 Education level Unknown Post-Graduate PHD in chemistry 01/11/2011 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 Unknown Has never used illegal drugs 011 Allergies, Adverse Reactions, Alerts Substance Reaction Codes Entered Date Inactivated Date Status * NO KNOWN FOOD NAYE RGIES Unknown 04/19/2011 No Inactive Date Active Toradol RxNorm: 63069 03/05/2011 No Inactive Date Active Lisinopril cough, [...] Date Stop Date Sta tus Fill Instructions amlodipine 10 mg tablet RxNorm: 543825 TAKE 1 TABLET BY MOUTH EVERY DAY 07/14/2018 11/10/2018 Ac tive clopidogrel 75 mg ta blet RxNorm: 770940 TAKE 1 TABLET BY MOUT H EVERY DAY 06/23/2018 12/19/2018 Ac tive Zantac 150 mg tablet RxNorm: 525754 1 TABLET(S) PO QAM 06/12/2018 01/07/2019 Active lisinopril 20 mg tablet RxNorm: 562724 TAKE 1 TABLET DAILY 06/05/2018 12/01/2018 Active triamterene 37.5 mg- hydrochlorothiazide 25 mg tablet RxNorm: 159136 1 Tablet(s) PO daily 05/18/2018 12/13/2018 Active cetirizine 10 mg tablet RxNorm: 7295997 TABLET(S) 1 TABLET(S) PO DAILY TO TAKE I NSTEAD OF THE CLARITIN 03/13/2018 02/05/2019 Active amlodipine 10 mg tablet RxNorm: 786149 TAKE 1 TABLET BY MOUTH EVERY DAY 03/09/2018 10/04/2018 Ac tive fluticasone 50 mcg/a ctuation nasal spray,suspension RxNorm: 4363468 1 Carlos NASAL BID 02/08/2018 No Stop Date Active fluticasone 50 mcg/a ctuation nasal spray,suspension RxNorm: 8131298 1 Carlos NASAL BID 02/08/2018 02/07/2018 Inactive Trulance 3 mg tablet RxNorm: 3301078 1 Tablet(s) PO QAM 01/19/2018 07/17/2018 Active cefdinir 300 mg capsule RxNorm: 431539 1 Capsule(s) PO BID 12/28/2017 01/03/2018 Inactive cefdinir 300 mg capsule RxNorm: 402766 1 Capsule(s) PO BID 12/28/2017 12/27/2017 Inactive clopidogrel 75 mg ta blet RxNorm: 375526 TAKE 1 TABLET BY MOUT H EVERY DAY 12/26/2017 06/22/2018 In active Namenda 10 mg tablet RxNorm: 769521 Tablet(s) TAKE 1 TABLET BY MOUTH TWICE D AILY. 12/15/2017 No Stop Date Active Robinul 1 mg tablet RxNorm: 625671 1/2 Tablet(s) PO AC & HS 12/12/2017 12/14/2017 Inactive Robinul 1 mg tablet RxNorm: 785241 1/2 Tablet(s) PO AC & HS 12/12/2017 12/11/2017 Inactive donepezil 10 mg tablet RxNorm: 536162 1 TABLET(S) PO DAILY TAKE 1 TABLET BY MO UTH ONCE DAILY 12/08/2017 12/11/2017 Inactive Patient requests 90 days supply lisinopril 20 mg tablet RxNorm: 205458 TAKE 1 TABLET DAILY 12/05/2017 01/11/2018 Inactive Cymbalta 30 mg capsu le,delayed release RxNorm: 979352 1 Capsule(s) PO daily 12/05/2017 12/04/2017 In active Cymbalta 30 mg capsu le,delayed release RxNorm: 015861 1 Capsule(s) PO daily 12/05/2017 12/05/2017 In active Trulance 3 mg tablet RxNorm: 8130324 1 Tablet(s) PO daily 11/14/2017 12/13/2017 Inactive Linzess 145 mcg capsule RxNorm: 6317060 1 Capsule(s) PO daily 10/28/2017 12/14/2017 Inactive Zantac 150 mg tablet RxNorm: 489110 1 Tablet(s) PO QAM 10/13/2017 01/04/2018 Inactive mirtazapine 15 mg ta blet RxNorm: 805540 TAKE ONE TABLET BY MO UTH EVERY DAY 09/29/2017 09/23/2018 Ac tive Mobic 15 mg tablet RxNorm: 604952 1/2 TABLET(S) DAILY 09/26/2017 12/19/2017 Inactive lisinopril 20 mg tablet RxNorm: 274375 1/2 Tablet(s) daily 09/13/2017 01/12/2018 Inactive amlodipine 10 mg tablet RxNorm: 054035 TAKE 1 TABLET BY MOUTH EVERY DAY 09/09/2017 03/07/2018 In active Reglan 5 mg tablet RxNorm: 933742 1/2 Tablet(s) PO TID may increase up to a full pill three times daily as needed for poor GI motility 07/20/2017 09/17/2017 Inactive Protonix 40 mg table t,delayed release RxNorm: 695256 1 Tablet(s) PO daily 07/04/2017 01/29/2018 In active clopidogrel 75 mg ta blet RxNorm: 207052 TAKE 1 TABLET BY MOUT H EVERY DAY 06/20/2017 12/16/2017 In active cetirizine 10 mg tablet RxNorm: 4956002 TABLET(S) 1 TABLET(S) PO DAILY TO TAKE I NSTEAD OF THE CLARITIN 06/06/2017 03/12/2018 Inactive lisinopril 20 mg tablet RxNorm: 681496 TAKE 1 TABLET DAILY 05/30/2017 09/12/2017 Inactive Mobic 15 mg tablet RxNorm: 382624 1/2 TABLET(S) DAILY 03/21/2017 09/16/2017 Inactive donepezil 10 mg tablet RxNorm: 978044 1 Tablet(s) PO daily TAKE 1 TABLET BY MO UTH ONCE DAILY 02/28/2017 11/24/2017 Inactive Patient requests 90 days supply Requip 0.25 mg tablet RxNorm: 786658 1 TABLET(S) PO BID 01/24/2017 01/04/2018 Inactive Patient requests 90 days supply clopidogrel 75 mg ta blet RxNorm: 536365 TAKE 1 TABLET BY MOUT EVERY DAY 12/23/2016 06/19/2017 In active lisinopril 20 mg tablet RxNorm: 920513 TAKE 1 TABLET DAILY 11/26/2016 05/24/2017 Inactive Kenalog 40 mg/mL hugo pension for injection RxNorm: 5279185 Milliliter(s) Inj 11/25/2016 11/25/2016 In active cefdinir 300 mg capsule RxNorm: 016588 1 Capsule(s) PO BID 11/23/2016 11/27/2016 Inactive cefdinir 300 mg capsule RxNorm: 362511 1 Capsule(s) PO BID 11/23/2016 11/22/2016 Inactive nystatin 100,000 uni t/mL oral suspension RxNorm: 397188 5 Milliliter(s) PO QI D 11/18/2016 11/27/2016 In active azithromycin 250 mg tablet RxNorm: 181665 1 Tablet(s) PO UD 2 p ills on day #1 then one pill daily x 4 more days 11/18/2016 11/22/2016 Inactive Mobic 15 mg tablet RxNorm: 322205 1/2 TABLET(S) DAILY 10/28/2016 03/20/2017 Inactive citalopram 10 mg tablet RxNorm: 118780 TAKE 1 TABLET BY MOUTH EVERY DAY 10/07/2016 03/05/2017 In active Patient requests 90 days supply mirtazapine 15 mg ta blet RxNorm: 544627 TAKE ONE TABLET BY MO UTH EVERY DAY 10/06/2016 09/28/2017 In active mirtazapine 15 mg ta blet RxNorm: 775100 TAKE ONE TABLET BY MO UTH EVERY DAY 10/05/2016 10/05/2016 In active Patient requests 90 days supply amlodipine 10 mg tablet RxNorm: 921467 TAKE 1 TABLET BY MOUTH EVERY DAY 09/14/2016 01/24/2017 In active clopidogrel 75 mg ta blet RxNorm: 503432 TAKE 1 TABLET BY MOUT H EVERY DAY 06/28/2016 12/22/2016 In active lisinopril 20 mg tablet RxNorm: 988866 TAKE 1 TABLET DAILY 05/31/2016 11/25/2016 Inactive donepezil 10 mg tablet RxNorm: 112623 TAKE 1 TABLET BY MOUTH ONCE DAILY 05/11/2016 11/06/2016 In active donepezil 10 mg tablet RxNorm: 301944 TAKE 1 TABLET BY MOUTH ONCE DAILY 04/26/2016 02/28/2017 In active Mobic 15 mg tablet RxNorm: 281477 1/2 Tablet(s) daily 04/19/2016 10/15/2016 Inactive citalopram 10 mg tablet RxNorm: 670228 TAKE 1 TABLET BY MOUTH EVERY DAY 04/06/2016 04/25/2016 In active cetirizine 10 mg tablet RxNorm: 8046768 Tablet(s) 1 TABLET(S) PO DAILY TO TAKE I NSTEAD OF THE CLARITIN 03/30/2016 02/22/2017 Inactive amlodipine 10 mg tablet RxNorm: 286426 TAKE 1 TABLET BY MOUTH EVERY DAY 03/08/2016 01/24/2017 In active amlodipine 10 mg tablet RxNorm: 680929 1 Tablet(s) PO daily TAKE 1 TABLET BY MO UTH ONCE DAILY 03/03/2016 03/07/2016 Inactive Requip 0.25 mg tablet RxNorm: 362787 1 Tablet(s) PO BID 03/03/2016 09/13/2016 Inactive Mobic 15 mg tablet RxNorm: 818626 1 Tablet(s) daily not refilled on a 02/23/2016 04/18/2016 In active cetirizine 10 mg tablet RxNorm: 6744739 1 TABLET(S) PO DAILY TO TAKE INSTEAD OF THE CLARITIN 02/19/2016 03/19/2016 Inactive lisinopril 20 mg tablet RxNorm: 592817 TAKE 1 TABLET DAILY 02/18/2016 05/17/2016 Inactive Namenda 10 mg tablet RxNorm: 778863 Tablet(s) TAKE 1 TABLET BY MOUTH TWICE D AILY. 02/17/2016 12/14/2017 Inactive lisinopril 20 mg tablet RxNorm: 364274 TAKE 1 TABLET DAILY 01/23/2016 01/24/2017 Inactive cetirizine 10 mg tablet RxNorm: 5464062 1 Tablet(s) PO daily to take instead of the claritin 01/21/2016 02/18/2016 Inactive amlodipine 10 mg tablet RxNorm: 008928 1 Tablet(s) PO daily TAKE 1 TABLET BY MO UTH ONCE DAILY 12/02/2015 03/02/2016 Inactive clopidogrel 75 mg ta blet RxNorm: 805399 TAKE 1 TABLET BY MOUT H EVERY DAY 11/25/2015 05/22/2016 In active Mobic 15 mg tablet RxNorm: 635119 TAKE(1/2) TABLET DAILY. 11/17/2015 02/22/2016 Inactive lisinopril 20 mg tablet RxNorm: 744227 TAKE 1 TABLET DAILY 11/17/2015 01/15/2016 Inactive Mobic 15 mg tablet RxNorm: 305204 1/2 Tablet(s) PO daily TAKE (1/2) TABLET DAILY. 11/12/2015 11/16/2015 Inactive citalopram 10 mg tablet RxNorm: 901457 TAKE 1 TABLET BY MOUTH EVERY DAY 10/27/2015 04/05/2016 In active Requip 0.25 mg tablet RxNorm: 629936 1 Tablet(s) PO BID 10/15/2015 02/11/2016 Inactive Requip 0.25 mg tablet RxNorm: 739485 1 Tablet(s) PO BID 10/15/2015 10/14/2015 Inactive mirtazapine 15 mg ta blet RxNorm: 103249 1 Tablet(s) PO daily 09/08/2015 10/01/2016 Inactive donepezil 10 mg tablet RxNorm: 916049 TAKE 1 TABLET DAILY 09/01/2015 04/25/2016 Inactive amlodipine 10 mg tablet RxNorm: 069291 1 Tablet(s) PO daily TAKE 1 TABLET BY MO UTH ONCE DAILY 08/18/2015 12/01/2015 Inactive clopidogrel 75 mg ta blet RxNorm: 944956 1 Tablet(s) PO daily TAKE 1 TABLET DAILY 05/20/2015 11/24/2015 In active Mobic 15 mg tablet RxNorm: 495051 Tablet(s) TAKE (1/2) TABLET DAILY. 04/23/2015 10/19/2015 In active lisinopril 20 mg tablet RxNorm: 085770 TAKE 1 TABLET DAILY 04/22/2015 11/16/2015 Inactive Mobic 15 mg tablet RxNorm: 220826 TAKE (1/2) TABLET DAILY. 04/22/2015 04/22/2015 Inactive sulfamethoxazole 400 mg-trimethoprim 80 mg tablet RxNorm: 830088 1/2 Tablet(s) PO nancy y 03/11/2015 04/09/2015 Inactive Vesicare 5 mg tablet RxNorm: 139917 1 Tablet(s) PO 03/11/2015 05/09/2015 Inactive Protonix 40 mg table t,delayed release RxNorm: 879417 1 Tablet(s) PO BID 03/05/2015 09/30/2015 In active ok to change from [address] Archana rivera clopidogrel 75 mg ta blet RxNorm: 942694 1 Tablet(s) PO daily TAKE 1 TABLET DAILY 02/20/2015 05/19/2015 In active Namenda 10 mg tablet RxNorm: 077810 Tablet(s) TAKE 1 TABLET BY MOUTH TWICE D AILY. 01/22/2015 02/16/2016 Inactive amlodipine 10 mg tablet RxNorm: 606964 TAKE 1 TABLET BY MOUTH ONCE DAILY 01/14/2015 08/17/2015 In active donepezil 10 mg tablet RxNorm: 222413 TAKE 1 TABLET DAILY 01/06/2015 08/31/2015 Inactive Levsin 0.125 mg tablet RxNorm: 8863092 1 Tablet(s) PO QID as needed FOR ABD REJI N 11/05/2014 12/03/2014 In active Mobic 15 mg tablet RxNorm: 086907 1/2 Tablet(s) daily TAKE (1/2) TABLET DA MOIZ. 10/01/2014 04/21/2015 Inactive ciprofloxacin 500 mg tablet RxNorm: 076754 1 Tablet(s) PO BID 09/27/2014 10/01/2014 Inactive Flagyl 500 mg tablet RxNorm: 465196 1 Tablet(s) PO TID 09/27/2014 10/03/2014 Inactive take probiotic BID donepezil 10 mg tablet RxNorm: 528291 1/2 Tablet(s) PO BID 09/24/2014 01/05/2015 Inactive lisinopril 20 mg tablet RxNorm: 412900 TAKE 1 TABLET DAILY 09/05/2014 04/21/2015 Inactive amlodipine 10 mg tablet RxNorm: 747175 1 Tablet(s) PO daily 09/02/2014 12/30/2014 Inactive mirtazapine 15 mg ta blet RxNorm: 249388 1 Tablet(s) PO daily 08/28/2014 09/07/2015 Inactive donepezil 10 mg tablet RxNorm: 006546 1 Tablet(s) PO daily 08/28/2014 09/23/2014 Inactive citalopram 10 mg tablet RxNorm: 423905 1 Tablet(s) PO daily 08/28/2014 03/25/2015 Inactive citalopram 10 mg tablet RxNorm: 382453 1 Tablet(s) PO daily 08/07/2014 08/27/2014 Inactive citalopram 10 mg tablet RxNorm: 421953 1 Tablet(s) PO daily 08/07/2014 08/06/2014 Inactive Flagyl 500 mg tablet RxNorm: 554531 1 Tablet(s) PO TID 08/02/2014 08/01/2014 Inactive take probiotic BID Flagyl 500 mg tablet RxNorm: 155944 1 Tablet(s) PO TID 08/02/2014 08/08/2014 Inactive take probiotic BID tamsulosin ER 0.4 mg capsule,extended release 24 hr RxNorm: 161044 1 Capsule(s) PO QHS 06/06/2014 03/10/2015 Inactive TAKE AT BEDTIME escitalopram 5 mg ta blet RxNorm: 702484 1 Tablet(s) PO QPM 06/06/2014 08/06/2014 Inactive doxycycline hyclate 100 mg tablet RxNorm: 846226 1 Tablet(s) PO BID 05/31/2014 05/30/2014 Inactive doxycycline hyclate 100 mg tablet RxNorm: 736012 1 Tablet(s) PO BID 05/31/2014 06/06/2014 Inactive please deliver if not picked by 3pm Aricept 5 mg tablet RxNorm: 697645 1 Tablet(s) PO BID 05/29/2014 08/27/2014 Inactive losartan 50 mg tablet RxNorm: 589687 1/2 Tablet(s) PO daily 05/29/2014 12/28/2015 Inactive clopidogrel 75 mg ta blet RxNorm: 900751 1 Tablet(s) PO daily 05/27/2014 05/26/2014 Inactive Mobic 15 mg tablet RxNorm: 508397 TAKE (1/2) TABLET DAILY. 05/27/2014 09/30/2014 Inactive clopidogrel 75 mg ta blet RxNorm: 254091 TAKE 1 TABLET DAILY 05/27/2014 02/19/2015 Inactive Mobic 15 mg tablet RxNorm: 049752 1/2 Tablet(s) PO daily TAKE (1/2) TABLET DAILY. 05/27/2014 05/26/2014 Inactive prednisone 20 mg tablet RxNorm: 340052 1 Tablet(s) PO BID 05/21/2014 05/25/2014 Inactive albuterol sulfate 2. 5 mg/0.5 mL solution for nebulization RxNorm: 189122 1 inhale INH Q4H as needed 05/21/2014 09/01/2015 Inactive prednisone 20 mg tablet RxNorm: 685494 1 Tablet(s) PO BID 05/21/2014 05/20/2014 Inactive cefdinir 300 mg capsule RxNorm: 565599 1 Capsule(s) PO BID 05/20/2014 05/26/2014 Inactive Zithromax Z-Dequan 250 mg tablet RxNorm: 877957 1 Tablet(s) PO UD 05/20/2014 05/24/2014 Inactive zpack lorazepam 0.5 mg tablet RxNorm: 739116 1/2 to 1 Tablet(s) PO Q8 PRN as needed 04/30/2014 06/05/2014 In active Namenda 10 mg tablet RxNorm: 731856 TAKE 1 TABLET BY MOUTH TWICE DAILY. 04/15/2014 01/21/2015 In active Namenda 10 mg tablet RxNorm: 977373 1 Tablet(s) PO BID 04/15/2014 04/14/2014 Inactive losartan 50 mg tablet RxNorm: 196606 1 Tablet(s) PO daily 03/25/2014 05/28/2014 Inactive Protonix 40 mg table t,delayed release RxNorm: 618608 1 Tablet(s) PO QPM 03/21/2014 06/18/2014 In active ok to change from [address] Stoker Erector nston fluticasone 50 mcg/a ctuation nasal spray,suspension RxNorm: 328868 1 Carlos NASAL BID 03/04/2014 09/29/2014 Inactive Protonix 20 mg table t,delayed release RxNorm: 661945 1 Tablet(s) PO QPM 02/08/2014 03/20/2014 In active fluticasone 50 mcg/a ctuation nasal spray,suspension RxNorm: 258056 1 Carlos NASAL BID 01/30/2014 03/03/2014 Inactive fluticasone 50 mcg/a ctuation nasal spray,suspension RxNorm: 656176 1 Carlos NASAL BID 12/24/2013 01/29/2014 Inactive fluticasone 50 mcg/a ctuation nasal spray,suspension RxNorm: 918832 1 Carlos NASAL BID 11/20/2013 12/23/2013 Inactive doxycycline hyclate 100 mg capsule RxNorm: 1975573 1 Capsule(s) PO BID 10/08/2013 10/17/2013 In active doxycycline hyclate 100 mg capsule RxNorm: 4810048 capsule oral 10/08/2013 10/29/2013 Inactive fluticasone 50 mcg/a ctuation nasal spray,suspension RxNorm: 148755 spray,suspension nasl 10/08/2013 11/19/2013 Inactive fluticasone 50 mcg/a ctuation nasal spray,suspension RxNorm: 468293 1 Carlos NASAL BID Nasal spray- use twice daily, one spray per nostril twice daily, after 30 minutes, rinse out nose with saline spray. 10/08/2013 10/29/2013 Inactive mirtazapine 7.5 mg t ablet RxNorm: 118481 1/2 Tablet(s) PO daily 08/30/2013 08/27/2014 Inactive lorazepam 0.5 mg tablet RxNorm: 488232 1/2 Tablet(s) PO Q8 PRN 08/21/2013 04/29/2014 Inactive Aricept 5 mg tablet RxNorm: 637585 Tablet(s) PO TAKE 1 TABLET DAILY 08/21/2013 05/28/2014 In active Plavix 75 mg tablet RxNorm: 235489 Tablet(s) PO TAKE 1 TABLET DAILY 05/24/2013 12/04/2014 In active clopidogrel 75 mg ta blet RxNorm: 872876 tablet oral 05/24/2013 05/26/2014 Inactive Plavix 75 mg tablet RxNorm: 026065 1 Tablet(s) PO daily 05/23/2013 05/23/2013 Inactive meloxicam 15 mg tablet RxNorm: 996149 tablet oral 04/26/2013 03/25/2014 Inactive Mobic 15 mg tablet RxNorm: 885504 Tablet(s) PO TAKE (1/2) TABLET DAILY. 04/26/2013 05/26/2014 In active Mobic 15 mg tablet RxNorm: 616617 1/2 Tablet(s) PO daily 04/25/2013 04/25/2013 Inactive lisinopril 20 mg tablet RxNorm: 476323 1 Tablet(s) PO 04/04/2013 03/24/2014 Inactive finasteride 5 mg tablet RxNorm: 955610 tablet oral 03/22/2013 09/01/2015 Inactive lisinopril 10 mg tablet RxNorm: 876818 1 Tablet(s) PO daily 02/14/2013 04/03/2013 Inactive donepezil 5 mg tablet RxNorm: 315221 tablet oral 02/07/2013 12/24/2013 Inactive Influenza Virus Vacc ine 0.5 mL RxNorm: IM 02/06/2013 02/06/2013 Inactive Aricept 5 mg tablet RxNorm: 907677 1 Tablet(s) PO daily 02/06/2013 08/04/2013 Inactive tamsulosin ER 0.4 mg capsule,extended release 24 hr RxNorm: 365454 capsule,extended release 24hr oral 12/21/2012 06/05/2014 Inactive Plavix 75 mg tablet RxNorm: 789173 1 Tablet(s) PO daily 12/05/2012 05/03/2013 Inactive lorazepam 0.5 mg tablet RxNorm: 306144 1/2 Tablet(s) PO Q8 PRN 11/14/2012 08/20/2013 Inactive lisinopril 10 mg tablet RxNorm: 464417 1 Tablet(s) PO daily 08/08/2012 02/03/2013 Inactive Aricept 5 mg tablet RxNorm: 839095 1 Tablet(s) PO daily 08/08/2012 02/03/2013 Inactive Plavix 75 mg tablet RxNorm: 792860 1 Tablet(s) PO daily 07/04/2012 11/30/2012 Inactive Mobic 15 mg tablet RxNorm: 215685 1/2 Tablet(s) PO daily 03/20/2012 04/13/2013 Inactive Namenda 10 mg tablet RxNorm: 787323 1 Tablet(s) PO BID 02/22/2012 04/11/2014 Inactive lorazepam 0.5 mg tablet RxNorm: 399997 1/2 Tablet(s) PO Q8 PRN 02/02/2012 11/13/2012 Inactive lisinopril 10 mg tablet RxNorm: 097540 1 Tablet(s) PO daily 01/24/2012 07/21/2012 Inactive lisinopril 10 mg tablet RxNorm: 937764 1/2 Tablet(s) PO daily 12/20/2011 01/23/2012 Inactive Aricept 5 mg tablet RxNorm: 499384 1 Tablet(s) PO daily 07/14/2011 08/06/2012 Inactive Mobic 15 mg tablet RxNorm: 406024 1 Tablet(s) PO daily 07/14/2011 03/19/2012 Inactive Bentyl 10 mg Cap RxNorm: 435511 1 Capsule(s) PO daily one pill daily and every 6 hours if needed for bowel spasms. 06/23/2011 03/20/2012 Inactive amlodipine 5 mg Tab RxNorm: 218739 2 Tablet(s) PO daily 03/08/2011 12/08/2011 Inactive ZOSTAVAX 19,400 unit Sub-Q Soln RxNorm: 3087928 SQ 02/2502/25/2011 Inactive Pneumovax 23 25 mcg/ 0.5 mL Injection RxNorm: 004493 Milliliter(s) Inj 02/16/2011 02/16/2011 In active Influenza Virus Vacc ine 0.5 mL RxNorm: IM 02/09/2011 02/09/2011 Inactive Namenda 10 mg tablet RxNorm: 342381 1 Tablet(s) PO BID 02/01/2011 02/21/2012 Inactive dicyclomine 10 mg ca psule RxNorm: 179577 capsule oral 01/20/2011 10/29/2013 Inactive Namenda 5 mg tablet RxNorm: 657896 tablet oral 01/20/2011 12/24/2013 Inactive dicyclomine 20 mg ta blet RxNorm: 814967 tablet oral 01/15/2011 10/29/2013 Inactive Flagyl 500 mg Tab RxNorm: 032834 1 Tablet(s) PO TID 01/07/2011 01/06/2011 Inactive Cipro 500 mg Tab RxNorm: 012219 1 Tablet(s) PO BID 01/07/2011 06/23/2011 Inactive Cipro 500 mg Tab RxNorm: 304609 1 Tablet(s) PO BID 01/07/2011 01/06/2011 Inactive Flagyl 500 mg Tab RxNorm: 702776 1 Tablet(s) PO TID 01/07/2011 06/23/2011 Inactive metronidazole 500 mg tablet RxNorm: 144408 tablet oral 01/07/2011 12/24/2013 Inactive sulfamethoxazole 400 mg-trimethoprim 80 mg tablet RxNorm: 833769 tablet oral 12/24/2010 03/10/2015 In active mirtazapine 15 mg ta blet RxNorm: 989617 tablet oral 11/14/2010 12/24/2013 Inactive lisinopril 10 mg tablet RxNorm: 829680 tablet oral 11/14/2010 12/24/2013 Inactive doxycycline hyclate 100 mg tablet RxNorm: 539597 tablet oral 11/04/2010 12/24/2013 Inactive diphenoxylate-atropi ne 2.5 mg-0.025 mg tablet RxNorm: 4296091 tablet oral 11/03/2010 10/29/2013 In active ciprofloxacin 500 mg tablet RxNorm: 572196 tablet oral 11/01/2010 10/29/2013 Inactive Miralax 17 gram/dose oral powder RxNorm: 104627 17 Gram(s) PO daily No Start Date Active ranitidine 150 mg ta blet RxNorm: 977666 1 Tablet(s) PO daily No Start Date Active alprazolam 0.25 mg t ablet RxNorm: 101755 1 Tablet(s) PO BID PRN No Start Date Active simvastatin 20 mg ta blet RxNorm: 939433 1 Tablet(s) PO daily No Start Date Active Vesicare 5 mg tablet RxNorm: 685179 1 Tablet(s) PO daily No Start Date Active bicalutamide 50 mg t ablet RxNorm: 984673 1 Tablet(s) PO daily No Start Date Active Phenergan 6.25 mg/5 mL syrup RxNorm: 141300 5-10 Milliliter(s) PO QID as needed No Start Date Active sulfamethoxazole 500 mg Tab RxNorm: 393570 1/2 Tablet(s) PO daily No Start Date 12/24/2013 Inactive Plavix 75 mg Tab RxNorm: 218818 1 Tablet(s) PO daily No Start Date 01/26/2011 Inactive aspirin 81 mg Cap, D elayed Release RxNorm: 110530 1 Capsule(s) PO daily No Start Date 01/04/2018 Inactive Bentyl 10 mg capsule RxNorm: 871480 1 Capsule(s) PO QID as needed per dr. tylor pereira No Start Date 01/04/2018 Inactive famotidine 20 mg tablet RxNorm: 057554 1 Tablet(s) PO BID prescribed in ER No Start Date 10/13/2017 Inactive hydrocodone 5 mg-alexey taminophen 325 mg tablet RxNorm: 239365 1 Tablet(s) PO Q6 as needed No Start Date 06/05/2014 Inactive Proscar 5 mg Tab RxNorm: 192245 1 Tablet(s) PO daily No Start Date 09/01/2015 Inactive Plavix 75 mg tablet RxNorm: 603501 1 Tablet(s) PO daily No Start Date 07/03/2012 Inactive albuterol sulfate 2. 5 mg/0.5 mL solution for nebulization RxNorm: 155686 1 inhale INH Q4H as needed No Start Date 05/20/2014 Inactive metoclopramide 5 mg tablet RxNorm: 759713 1 Tablet(s) PO AC & H S prescribed in ER No Start Date 01/04/2018 Inactive amlodipine 5 mg Tab RxNorm: 717864 1 Tablet(s) PO daily No Start Date 03/07/2011 Inactive Namenda 5 mg Tab RxNorm: 889888 1 Tablet(s) PO daily No Start Date 06/23/2011 Inactive Zyrtec 10 mg tablet RxNorm: 2876705 1 Tablet(s) PO daily No Start Date 01/04/2018 Inactive Allergy Relief (ceti rizine) oral RxNorm: 624462 oral No S tart Date 12/19/2016 Inactive fluocinonide 0.05 % Ointment RxNorm: 060282 1 TOP BID PRN No Start Date 12/24/2013 Inactive amlodipine 5 mg tablet RxNorm: 297135 1 Tablet(s) PO daily No Start Date 09/01/2014 Inactive lisinopril Oral RxNorm: Oral No Start Date 12/08/2011 Inactive simvastatin 20 mg Tab RxNorm: 162317 1 Tablet(s) PO daily No Start Date 06/06/2014 Inactive Bentyl 20 mg Tab RxNorm: 308901 1 Tablet(s) PO Q6 PRN No Start Date 06/23/[address] Quintero Bentyl 10 mg Cap RxNorm: 517542 1 Capsule(s) PO BID No Start Date 06/22/2011 Inactive fluticasone 50 mcg/a ctuation nasal spray,suspension RxNorm: 9082428 1 Carlos NASAL BID No Start Date 02/07/2018 Inactive Plavix 75 mg Tab RxNorm: 687389 1 Tablet(s) PO every other day No Start Date 08/24/2011 Inactive lorazepam 0.5 mg tablet RxNorm: 667505 1/2 Tablet(s) PO Q8 PRN No Start Date 02/01/2012 Inactive lisinopril 10 mg tablet RxNorm: 347187 1 Tablet(s) PO daily No Start Date 12/19/2011 Inactive Trulance 3 mg tablet RxNorm: 5641316 1 Tablet(s) PO QAM No Start Date 01/18/2018 Inactive Flomax 0.4 mg 24 hr Cap RxNorm: 861140 1 Capsule(s) PO daily No Start Date 05/28/2014 Inactive Aricept 5 mg Tab RxNorm: 856260 1 Tablet(s) PO daily No Start Date 07/13/2011 Inactive Vitamin D 1,000 unit Tab RxNorm: 666603 1 Tablet(s) PO daily No Start Date 01/04/2018 Inactive Levsin 0.125 mg tablet RxNorm: 4810675 1 Tablet(s) PO QID as needed FOR ABD REJI N No Start Date 11/04/2014 Inactive mirtazapine 7.5 mg t ablet RxNorm: 003812 1/2 Tablet(s) PO daily No Start Date 08/29/2013 Inactive Senior Vitamin Tab RxNorm: 1 Tablet(s) PO daily No Start Date 01/04/2018 Inactive Mobic 15 mg Tab RxNorm: 055699 1 Tablet(s) PO daily No Start Date 07/13/2011 Inactive Medication Administered Medication Codes Instruc tions Start Date Status Kenalog 40 mg/mL suspension for injection RxNorm: 1678709 Milliliter 11/25/2016 No longer Active Influenza Virus Vaccine 0.5 mL RxNorm: 02/06/2013 No longer Active ZOSTAVAX 19,400 unit Sub-Q Soln RxNo rm: [id number] 02/25/2011 No longer A ctive Pneumovax 23 25 mcg/0.5 mL Injection RxNorm: 777404 Milliliter 02/16/2011 No longer Active Influenza Virus [...] Ord15 CALCIUM 10.1 mg/dL 06/08/2018 Comp Metabolic Aok822 NA 143 mEq/L 04/10/2018 Comp Metabolic Cgd118 K 3.8 mEq/L 04/10/2018 Comp Metabolic Jxe793 CL 105 mEq/L 04/10/2018 Comp Metabolic Pgw089 CO2 30.0 mEq/L 04/10/2018 Comp Metabolic Ebw273 AN ION GAP 12 04/10/2018 Comp Metabolic Ttw961 GL UCOSE 95 mg/dL 04/10/2018 Comp Metabolic Fmb860 Cr eat 1.2 mg/dL 04/10/2018 Comp Metabolic Nnw791 eG FR 60 ml/min/1.73m2 04/10 Comp Metabolic Yby547 BUN 22 mg/dL 04/10/2018 Comp Metabolic Ydd522 B/ C Ratio 18.2 Ratio 04/10/2018 Comp Metabolic Fhv828 CA LCIUM 10.3 mg/dL 04/10/2018 Comp Metabolic Iqs408 AL K PHOS 113 U/L 04/10/2018 Comp Metabolic Qsa312 T(SGOT) 30 U/L 04/10/2018 Comp Metabolic Sax381 AL T(SGPT) 19 U/L 04/10/2018 Comp Metabolic Ycl192 BI LI T 0.4 mg/dL 04/10/2018 Comp Metabolic Wfl855 AL BUMIN 4.2 g/dL 04/10/2018 Comp Metabolic Poa216 TP RO 6.5 g/dL 04/10/2018 Comp Metabolic Tma748 GL OB 2.3 g/dL 04/10/2018 Comp Metabolic Rwx140 A/ G Ratio 1.8 Ratio 04/10/2018 Comp Metabolic Qfv789 Os mo 288 mOsmo 04/10/2018 Lipid Ord30 CHOL 133 mg/dL 04/10/2018 Lipid Ord30 HDL 49.0 mg/dl 04/10/2018 Lipid Ord30 TRIG 68 mg/dL 04/10/2018 Lipid Ord30 LDL 70 mg/dL 04/10/2018 Lipid Ord30 C/HDL 2.7 Ratio 04/10/2018 C RAP A SC 9407939 Strep A Negative 01/13/2018 Comp Metabolic Slz617 NA 134 mEq/L 10/07/2017 Comp Metabolic Vum711 K 4.5 mEq/L 10/07/2017 Comp Metabolic Zlt964 CL 99 mEq/L 10/07/2017 Comp Metabolic Owp931 CO2 31.0 mEq/L 10/07/2017 Comp Metabolic Ikz824 AN ION GAP 9 10/07/2017 Comp Metabolic Upo360 GL UCOSE 82 mg/dL 10/07/2017 Comp Metabolic Pnd255 Cr eat 1.0 mg/dL 10/07/2017 Comp Metabolic Bnc304 eG FR 77 ml/min/1.73m2 10/07 Comp Metabolic Olg835 BUN 16 mg/dL 10/07/2017 Comp Metabolic Ddp574 B/ C Ratio 16.3 Ratio 10/07/2017 Comp Metabolic Ekj736 CA LCIUM 9.6 mg/dL 10/07/2017 Comp Metabolic Sjn442 AL K PHOS 72 U/L 10/07/2017 Comp Metabolic Aor521 T(SGOT) 21 U/L 10/07/2017 Comp Metabolic Tzy871 AL T(SGPT) 14 U/L 10/07/2017 Comp Metabolic Lky318 BI LI T 0.4 mg/dL 10/07/2017 Comp Metabolic Wrj752 AL BUMIN 4.0 g/dL 10/07/2017 Comp Metabolic Hdb165 TP RO 5.7 g/dL 10/07/2017 Comp Metabolic Wjv049 GL OB 1.7 g/dL 10/07/2017 Comp Metabolic Wld237 A/ G Ratio 2.4 Ratio 10/07/2017 Comp Metabolic Gcr220 Os mo 269 mOsmo 10/07/2017 Lipid Ord30 CHOL 135 mg/dL 10/07/2017 Lipid Ord30 HDL 69.0 mg/dl 10/07/2017 Lipid Ord30 TRIG 52 mg/dL 10/07/2017 Lipid Ord30 LDL 56 mg/dL 10/07/2017 Lipid Ord30 C/HDL 2.0 Ratio 10/07/2017 %Hba1C Azk276 % HbA1c 48621-1 5.5 % 09/12/2017 %Hba1C Jlt718 Gluc Ave 111 mg/dL 09/12/2017 B12 Hac662 B12 816.00 pg/ml 09/10/2017 Test(s) Not Perfromed Test(s) Not Performed Test(s) Not Performed. See B elow: 09/09/2017 Test(s) Not Perfromed TEST NAME VIT D 09/09/2017 Test(s) Not Perfromed Rejection Reason NO PAYABLE DX 018 Test(s) Not Perfromed COMMENT PATIENT SAID HE WAS TAKING SUPPLEMENT 09/09/2017 Test(s) Not Perfromed [employer] Tello Almeida 018 Lipid Ord30 CHOL 134 mg/dL 04/11/2017 Lipid Ord30 HDL 63.0 mg/dl 04/11/2017 Lipid Ord30 TRIG 45 mg/dL 04/11/2017 Lipid Ord30 LDL 62 mg/dL 04/11/2017 Lipid Ord30 C/HDL 2.1 Ratio 04/11/2017 Tsh Ord6 hTSH II 2.07 uIU/mL 04/11/2017 Body Fluid Crystals Source RIGHT ELBOW 6 Body Fluid Crystals CRYSTALS, BODY FLUID 02/18/2016 Uric Acid Body Fluid 382286 URIC ACID-FLUID 4.3 mg/dL 02/18/2016 Metabolic Ord15 [...] Ord15 CALCIUM 9.1 mg/dL 02/05/2016 Comp Metabolic Xhw343 NA 129 mEq/L 10/08/2015 Comp Metabolic Ysw090 K 4.7 mEq/L 10/08/2015 Comp Metabolic Fnm200 CL 98 mEq/L 10/08/2015 Comp Metabolic Txa040 CO2 28.0 mEq/L 10/08/2015 Comp Metabolic Meu385 AN ION GAP 8 10/08/2015 Comp Metabolic Wzn126 GL UCOSE 84 mg/dL 10/08/2015 Comp Metabolic Gld759 Cr eat 1.3 mg/dL 10/08/2015 Comp Metabolic Hjm989 eG FR 56 ml/min/1.73m2 10/07 Comp Metabolic Fmi632 BUN 23 mg/dL 10/08/2015 Comp Metabolic Jik836 B/ C Ratio 17.8 Ratio 10/08/2015 Comp Metabolic Etr676 CA LCIUM 9.3 mg/dL 10/08/2015 Comp Metabolic Xwk593 AL K PHOS 68 U/L 10/08/2015 Comp Metabolic Lyo093 T(SGOT) 24 U/L 10/08/2015 Comp Metabolic Taq988 AL T(SGPT) 15 U/L 10/08/2015 Comp Metabolic Gnn492 BI LI T 0.5 mg/dL 10/08/2015 Comp Metabolic Fgh364 AL BUMIN 4.0 g/dL 10/08/2015 Comp Metabolic Phk662 TP RO 5.9 g/dL 10/08/2015 Comp Metabolic Xor102 GL OB 1.9 g/dL 10/08/2015 Comp Metabolic Yqi868 A/ G Ratio 2.1 Ratio 10/08/2015 Comp Metabolic Gft749 Os mo 262 mOsmo 10/08/2015 Lipid Ord30 [...] Ord30 C/HDL 2.3 Ratio 05/07/2015 Comp Metabolic Jpo783 NA 132 mEq/L 05/07/2015 Comp Metabolic Yfu936 K 4.4 mEq/L 05/07/2015 Comp Metabolic Eik751 CL 97 mEq/L 05/07/2015 Comp Metabolic Leo702 CO2 30.0 mEq/L 05/07/2015 Comp Metabolic Jhp973 AN ION GAP 9 05/07/2015 Comp Metabolic Uda416 GL UCOSE 78 mg/dL 05/07/2015 Comp Metabolic Xny315 Cr eat 1.2 mg/dL 05/07/2015 Comp Metabolic Sxs358 eG FR 60 ml/min/1.73m2 05/07 Comp Metabolic Gka972 BUN 25 mg/dL 05/07/2015 Comp Metabolic Kav567 B/ C Ratio 20.3 Ratio 05/07/2015 Comp Metabolic Rvo681 CA LCIUM 9.6 mg/dL 05/07/2015 Comp Metabolic Fns001 AL K PHOS 70 U/L 05/07/2015 Comp Metabolic Lxa061 T(SGOT) 27 U/L 05/07/2015 Comp Metabolic Dfw516 AL T(SGPT) 20 U/L 05/07/2015 Comp Metabolic Ebb181 BI LI T 0.4 mg/dL 05/07/2015 Comp Metabolic Jyo680 AL BUMIN 4.0 g/dL 05/07/2015 Comp Metabolic Kle491 TP RO 5.8 g/dL 05/07/2015 Comp Metabolic Zpc349 GL OB 1.8 g/dL 05/07/2015 Comp Metabolic Jtq937 A/ G Ratio 2.3 Ratio 05/07/2015 Comp Metabolic Xwc343 Os mo 268 mOsmo 05/07/2015 Cbc With [...] hTSH II 4.07 uIU/mL 05/07/2015 Comp Metabolic Lpj929 NA 134 mEq/L 12/10/2014 Comp Metabolic Pgi019 K 4.8 mEq/L 12/10/2014 Comp Metabolic Hon867 CL 101 mEq/L 12/10/2014 Comp Metabolic Skr802 CO2 30.0 mEq/L 12/10/2014 Comp Metabolic Ewc797 AN ION GAP 8 12/10/2014 Comp Metabolic Fuh699 GL UCOSE 85 mg/dL 12/10/2014 Comp Metabolic Rrg495 Cr eat 1.2 mg/dL 12/10/2014 Comp Metabolic Pvz356 eG FR 65 ml/min/1.73m2 12/10 Comp Metabolic Tys417 BUN 25 mg/dL 12/10/2014 Comp Metabolic Qfm780 B/ C Ratio 21.7 Ratio 12/10/2014 Comp Metabolic Jng026 CA LCIUM 9.5 mg/dL 12/10/2014 Comp Metabolic Ahj061 AL K PHOS 76 U/L 12/10/2014 Comp Metabolic Byc350 T(SGOT) 27 U/L 12/10/2014 Comp Metabolic Nfp546 AL T(SGPT) 18 U/L 12/10/2014 Comp Metabolic Ohs651 BI LI T 0.5 mg/dL 12/10/2014 Comp Metabolic Gct957 AL BUMIN 4.1 g/dL 12/10/2014 Comp Metabolic Ixv902 TP RO 5.7 g/dL 12/10/2014 Comp Metabolic Gox382 GL OB 1.6 g/dL 12/10/2014 Comp Metabolic Crs342 A/ G Ratio 2.6 Ratio 12/10/2014 Comp Metabolic Czo701 Os mo 272 mOsmo 12/10/2014 B12 Fgz480 B12 1011.00 pg/ml 12/10/2014 Lipid Ord30 CHOL [...] Differential Ord2 RDW 14.3 % 12/10/2014 CBC [id number] WBC 4.1 10e9/L 02/19/2013 CBC 3782557 RBC 4.39 10e12/L 02/19/2013 CBC 4511585 HGB 14.1 g/dL 02/19/2013 CBC 7493235 HCT DET 41.0 % 02/19/2013 CBC 5228847 MCV 93.4 fL 02/19/2013 CBC 5107535 MCH 32.1 pg 02/19/2013 CBC 2552835 MCHC 34.4 g/dL 02/19/2013 CBC 6518032 PLT 151 10e9/L 02/19/2013 CBC 7886684 MPV 11.8 fL 02/19/2013 CBC 8413942 YOVANNY % 63.2 % 02/19/2013 CBC 9429624 LY % 22.9 % 02/19/2013 CBC 8661121 MON % 11.5 % 02/19/2013 CBC 6725044 EOS % 2.2 % 02/19/2013 CBC 9618284 BASO % 0.2 % 02/19/2013 CBC 3558073 RDW 13.8 % 02/19/2013 CBC 4911374 ABS YOVANNY 2.59 10e9/L 02/19/2013 CBC 1408358 ABS LYMPH 0.94 10e9/L 02/19/2013 CBC 5245847 ABS MONO 0.47 10e9/L 02/19/2013 CBC 6366496 ABS EOS 0.09 10e9/L 02/19/2013 CBC 0486620 ABS BASO 0.01 10e9/L 02/19/2013 CBC 8144864 RDW-SD 46.0 fL 02/19/2013 TSH 1527517 TSH 2.094 uIU/ML 02/19/2013 FREE T4 8178233 FREE T4 1.18 NG/DL 02/19/2013 GFR CALC 7122731 GFR AA >60 ML/MIN 02/19/2013 GFR CALC 6961795 GFR NON -AA >60 ML/MIN 02/19/2013 CHEM 14 4511065 AST 30 U/L 02/19/2013 CHEM 14 4370658 ALT 19 IU/L 02/19/2013 CHEM 14 8484877 BUN 21 MG/DL 02/19/2013 CHEM 14 2196316 ALBUMIN 4.4 GM/DL 02/19/2013 CHEM 14 7451403 CHLORIDE 94 MMOL/L 02/19/2013 CHEM 14 7961576 BILI TOT 0.5 MG/DL 02/19/2013 CHEM 14 0730709 ALK PHOS 75 U/L 02/19/2013 CHEM 14 8428066 SODIUM 133 MMOL/L 02/19/2013 CHEM 14 2645045 CREATINI NE 1.07 MG/DL 02/19/2013 CHEM 14 0099882 CALCIUM 9.6 MG/DL 02/19/2013 CHEM 14 5391208 POTASSIUM 4.6 MMOL/L 02/19/2013 CHEM 14 2182035 PROT TOT 6.1 GM/DL 02/19/2013 CHEM 14 9846414 GLUCOSE 94 MG/DL 02/19/2013 CHEM 14 9319109 BICARB 31 MMOL/L 02/19/2013 CHEM 14 1751201 ANION GAP 8 MEQ/L 02/19/2013 UA 94992 Specific [place] 1.015 DateTime(Free Text in Aprima ) UA 58888 PH 6 DateTime(Free Text in Aprima ) UA 45413 GLUCOSE neg DateTime(Free Text in Aprima ) UA 73595 Protein neg DateTime(Free Text in Aprima ) UA 35770 Blood neg DateTime(Free Text in Aprima ) UA 67063 Bilirubin neg DateTime(Free Text in Aprima ) UA 89187 Ketones neg DateTime(Free Text in Aprima ) UA 72350 Urobilinogen neg DateTime(Free Text in Aprima ) UA 21340 Nitrite neg DateTime(Free Text in Aprima ) UA 21923 Leukocytes neg DateTime(Free Text in ) Review [...] normal 01/05/2018 None Full Exam - General 1995 Ears/Nose/Throat lips/teeth/gingiva Overall: benign lips 01/05/2018 None Full Exam - General 1995 Ears/Nose/Throat oral cavity/pharynx/larynx Overall: oral mucosa clear 01/05/2018 None Full Exam - General 1995 Ears/Nose/Throat [...] VACC PRSV FREE I NC ANTIG CPT-4: 29639 02/08/2018 URINALYSIS NONAUTO W /O SCOPE CPT-4: 96153 09/26/2017 ADMIN INFLUENZA VIRU S VAC CPT-4: G0008 01/25/2017 FLU VACC PRSV FREE I NC ANTIG CPT-4: 46483 01/25/2017 THER/PROPH/DIAG INJ SC/IM CPT-4: 31070 11/25/2016 TRIAMCINOLONE ACET I [place] NOS CPT-4: J3301 11/25/2016 DRAIN/INJECT JOINT/B URSA CPT-4: 08913 02/17/2016 IMMUNIZATION ADMIN CPT- 4: 81218 05/06/2015 PNEUMOCOCCAL VACC 13 TIFFANIE IM Formatting Model/CDA Sections, Assigned to/Celia Minaya SNOMED CT: [id number] CPT-4: 85132Kuuxlhj 05/06/2015 ADMIN INFLUENZA VIRU S VAC CPT-4: G0008 02/19/2015 FLU VACC 4 TIFFANIE 3 YRS PLUS IM Formatting Model/CDA Sections, Assigned to SNOMED CT: [id number] CPT-4: 06840Eviktmn 02/19/2015 URINALYSIS NONAUTO W /O SCOPE CPT-4: 06885 05/23/2014 ADMIN INFLUENZA VIRU S VAC CPT-4: G0008 03/26/2014 FLU VAC NO PRSV 4 VA L 3 YRS+ Assigned to/Celia Minaya CPT-4: 66661Iprbxgx 03/26/2014 PRESCRIP TRANSMIT A ERX SY CPT-4: G8553 04/04/2013 ROUTINE VENIPUNCTURE CPT-4: 08525 02/19/2013 ADMIN INFLUENZA VIRU S VAC CPT-4: G0008 02/06/2013 FLULAVAL VACC, 3 YRS & >, IM CPT-4: Q2036 02/06/2013 36076 EST. PATIENT, LEVEL IV CPT-4: 14989 06/19/2012 PRESCRIP TRANSMIT A ERX SY CPT-4: G8553 06/19/2012 PRESCRIP TRANSMIT A ERX SY CPT-4: G8553 03/20/2012 PRESCRIP TRANSMIT A ERX SY CPT-4: G8553 06/23/2011 IMMUNIZATION ADMIN CPT- 4: 79445 02/25/2011 ZOSTER VACC SC (No lloyd stephens, patient supplied vaccine) CPT-4: 44439DA 02/25/2011 ADMIN PNEUMOCOCCAL V ACCINE SNOMED CT: [id number] CPT-4: G0009 02/16/2011 Pneumococcal Polysac charide Vaccine, 23-Valent, Ad CPT-4: 04143 02/16/2011 ADMIN INFLUENZA VIRU S VAC CPT-4: G0008 02/09/2011 FLULAVAL VACC, 3 YRS & >, IM CPT-4: Q2036 02/09/2011 PRESCRIP TRANSMIT A ERX SY CPT-4: G8553 02/01/2011 URINALYSIS NONAUTO W /O SCOPE CPT-4: 43036 01/27/2011 Vital Signs Date Vital 05/18/2018 Blood Pressure 1: 142/64 Code: 8480-6 BMI: 19.9 Code: 19416-3 Heart Rate 1: 52 bpm Height: 5'9" SpO2: 98% Weight: 135 lbs 04/13/2018 Blood Pressure 1: 128/58 Code: 8480-6 BMI: 21.0 Code: 96844-5 Heart Rate 1: 83 bpm Height: 5'9" SpO2: 94% Weight: 142 lbs 02/08/2018 Blood Pressure 1: 136/76 Code: 8480-6 BMI: 19.9 Code: 42810-7 Heart Rate 1: 78 bpm Height: 5'9" SpO2: 99% Weight: 135 lbs 01/19/2018 Blood Pressure 1: 114/78 Code: 8480-6 BMI: 19.9 Code: 65269-5 Heart Rate 1: 80 bpm Height: 5'9" SpO2: 98% Weight: 135 lbs 01/12/2018 Blood Pressure 1: 130/78 Code: 8480-6 BMI: 19.8 Code: 00968-7 Heart Rate 1: 85 bpm Height: 5'9" SpO2: 97% Weight: 134 lbs 01/05/2018 Blood Pressure 1: 122/70 Code: 8480-6 BMI: 19.6 Code: 05403-8 Heart Rate 1: 87 bpm Height: 5'9" SpO2: 96% Weight: 133 lbs 11/14/2017 Blood Pressure 1: 130/70 Code: 8480-6 BMI: 19.5 Code: 35491-0 Heart Rate 1: 75 bpm Height: 5'9" SpO2: 98% Weight: 132 lbs 2017 Blood Pressure 1: 116/70 Code: 8480-6 BMI: 19.5 Code: 37211-4 Heart Rate 1: 55 bpm Height: 5'9" SpO2: 95% Weight: 132 lbs 10/13/2017 Blood Pressure 1: 130/70 Code: 8480-6 BMI: 19.3 Code: 53559-7 Heart Rate 1: 67 bpm Height: 5'9" SpO2: 98% Weight: 131 lbs 09/26/2017 Blood Pressure 1: 126/70 Code: 8480-6 BMI: 19.1 Code: 50453-1 Heart Rate 1: 66 bpm Height: 5'9" SpO2: 100% Weight: 129 lbs 8 oz 09/12/2017 Blood Pressure 1: 120/70 Code: 8480-6 BMI: 19.5 Code: 59045-7 Heart Rate 1: 83 bpm Height: 5'9" SpO2: 99% Weight: 132 lbs 09/09/2017 Blood Pressure 1: 126/70 Code: 8480-6 BMI: 19.3 Code: 27051-7 Heart Rate 1: 80 bpm Height: 5'9" SpO2: 98% Weight: 131 lbs 08/17/2017 Blood Pressure 1: 130/74 Code: 8480-6 BMI: 19.6 Code: 12687-6 Heart Rate 1: 72 bpm Height: 5'9" SpO2: 98% Weight: 133 lbs 07/20/2017 Blood Pressure 1: 124/62 Code: 8480-6 BMI: 19.8 Code: 45512-9 Heart Rate 1: 65 bpm Height: 5'9" SpO2: 96% Weight: 134 lbs 07/01/2017 Blood Pressure 1: 134/64 Code: 8480-6 BMI: 21.0 Code: 12046-4 Height: 5'9" Weight: 142 lbs 06/21/2017 Blood Pressure 1: 142/80 Code: 8480-6 BMI: 21.0 Code: 77848-8 Heart Rate 1: 63 bpm Height: 5'9" SpO2: 98% Weight: 142 lbs 03/21/2017 Blood Pressure 1: 128/66 Code: 8480-6 BMI: 20.8 Code: 78884-0 Heart Rate 1: 61 bpm Height: 5'9" SpO2: 98% Weight: 141 lbs 03/08/2017 Blood Pressure 1: 134/68 Code: 8480-6 BMI: 20.4 Code: 45006-0 Heart Rate 1: 56 bpm Height: 5'9" SpO2: 99% Weight: 138 lbs 01/25/2017 Blood Pressure 1: 98/62 Code: 8480-6 BMI: 20.6 Code: 77707-0 Heart Rate 1: 71 bpm Height: 5'9" SpO2: 97% Weight: 139 lbs 8 oz 12/20/2016 Blood Pressure 1: 120/68 Code: 8480-6 BMI: 20.4 Code: 93719-8 Heart Rate 1: 70 bpm Height: 5'9" [...] 1: 120/60 Code: 8480-6 BMI: 20.7 Code: 42267-9 Heart Rate 1: 74 bpm Height: 5'9" SpO2: 95% Weight: 140 lbs 08/23/2016 Blood Pressure 1: 118/68 Code: 8480-6 BMI: 20.8 Code: 64810-0 Heart Rate 1: 54 bpm Height: 5'9" SpO2: 97% Weight: 141 lbs 04/26/2016 Blood Pressure 1: 108/64 Code: 8480-6 BMI: 21.0 Code: 53893-7 Heart Rate 1: 62 bpm Height: 5'9" SpO2: 95% Weight: 142 lbs 02/17/2016 Blood Pressure 1: 138/80 Code: 8480-6 BMI: 20.2 Code: 85562-5 Heart Rate 1: 76 bpm Height: 5'9" SpO2: 97% Weight: 137 lbs 02/09/2016 Blood Pressure 1: 140/76 Code: 8480-6 BMI: 20.2 Code: 89449-6 Heart Rate 1: 72 bpm Height: 5'9" SpO2: 96% Weight: 137 lbs 02/03/2016 Blood Pressure 1: 136/80 Code: 8480-6 BMI: 20.7 Code: 77043-2 Heart Rate 1: 86 bpm Height: 5'9" SpO2: 96% Weight: 140 lbs 01/26/2016 Blood Pressure 1: 144/78 Code: 8480-6 BMI: 20.7 Code: 14512-4 Heart Rate 1: 73 bpm Height: 5'9" SpO2: 97% Temperature: 37.0 (C ) / 98.6 (F) Weight: 140 lbs 01/21/2016 Blood Pressure 1: 116/62 Code: 8480-6 BMI: 20.4 Code: 20357-6 Heart Rate 1: 66 bpm Height: 5'9" SpO2: 97% Weight: 138 lbs 12/29/2015 Blood Pressure 1: 130/74 Code: 8480-6 BMI: 20.4 Code: 48504-7 Heart Rate 1: 51 bpm Height: 5'9" SpO2: 98% Weight: 138 lbs 09/02/2015 Blood Pressure 1: 126/60 Code: 8480-6 BMI: 22.3 Code: 10745-7 Heart Rate 1: 55 bpm Height: 5'9" SpO2: 96% Weight: 151 lbs 05/06/2015 Blood Pressure 1: 132/72 Code: 8480-6 BMI: 21.0 Code: 97705-2 Heart Rate 1: 63 bpm Height: 5'9" SpO2: 97% Weight: 142 lbs 03/05/2015 Blood Pressure 1: 130/68 Code: 8480-6 BMI: 21.0 Code: 06761-2 Heart Rate 1: 61 bpm Height: 5'9" SpO2: 96% Weight: 142 lbs 12/04/2014 Blood Pressure 1: 122/64 Code: 8480-6 BMI: 21.3 Code: 21235-2 Heart Rate 1: 72 bpm Height: 5'9" Weight: 144 lbs 09/24/2014 Blood Pressure 1: 142/80 Code: 8480-6 BMI: 20.4 Code: 88813-7 Heart Rate 1: 80 bpm Height: 5'9" Weight: 138 lbs 09/09/2014 Blood Pressure 1: 122/74 Code: 8480-6 BMI: 20.5 Code: 41818-9 Heart Rate 1: 64 bpm Height: 5'9" Weight: 139 lbs 07/26/2014 Blood Pressure 1: 136/82 Code: 8480-6 BMI: 20.4 Code: 38403-0 Heart Rate 1: 87 bpm Height: 5'9" SpO2: 92% Weight: 138 lbs 07/10/2014 Blood Pressure 1: 130/74 Code: 8480-6 BMI: 21.1 Code: 77568-8 Heart Rate 1: 64 bpm Height: 5'9" Weight: 143 lbs 06/06/2014 Blood Pressure 1: 142/88 Code: 8480-6 BMI: 20.4 Code: 90520-3 Heart Rate 1: 68 bpm Height: 5'9" Weight: 138 lbs 05/29/2014 Blood Pressure 1: 108/72 Code: 8480-6 BMI: 20.5 Code: 47032-6 Heart Rate 1: 60 bpm Height: 5'9" Weight: 139 lbs 05/20/2014 Blood Pressure 1: 140/72 Code: 8480-6 BMI: 21.6 Code: 36377-9 Heart Rate 1: 60 bpm Height: 5'9" SpO2: 98% Temperature: 36.2 (C ) / 97.2 (F) Weight: 146 lbs 03/25/2014 Blood Pressure 1: 128/60 Code: 8480-6 BMI: 21.4 Code: 93599-2 Heart Rate 1: 62 bpm Height: 5'9" Weight: 145 lbs 02/08/2014 Blood Pressure 1: 136/82 Code: 8480-6 BMI: 21.3 Code: 71575-4 Heart Rate 1: 68 bpm Height: 5'9" Weight: 144 lbs 12/24/2013 Blood Pressure 1: 122/76 Code: 8480-6 BMI: 21.6 Code: 02378-6 Heart Rate 1: 58 bpm Height: 5'9" Weight: 146 lbs 11/20/2013 Blood Pressure 1: 112/62 Code: 8480-6 BMI: 20.7 Code: 00865-9 Heart Rate 1: 56 bpm Height: 5'9" Weight: 140 lbs 10/30/2013 Blood Pressure 1: 130/68 Code: 8480-6 BMI: 20.1 Code: 36108-3 Heart Rate 1: 68 bpm Height: 5'9" SpO2: 96% Weight: 136 lbs 10/08/2013 Blood Pressure 1: 128/72 Code: 8480-6 BMI: 20.8 Code: 24677-7 Heart Rate 1: 60 bpm Height: 5'9" Temperature: 36.6 (C ) / 97.8 (F) Weight: 141 lbs 06/18/2013 Blood Pressure 1: 124/78 Code: 8480-6 BMI: 20.8 Code: 20568-7 Heart Rate 1: 64 bpm Height: 5'9" Weight: 141 lbs 04/04/2013 Blood Pressure 1: 138/60 Code: 8480-6 BMI: 20.8 Code: 18240-2 Heart Rate 1: 56 bpm Height: 5'9" Weight: 141 lbs 02/19/2013 Blood Pressure 1: 152/74 Code: 8480-6 BMI: 21.0 Code: 38255-9 Heart Rate 1: 60 bpm Height: 5'9" Weight: 142 lbs 10/16/2012 Blood Pressure 1: 122/70 Code: 8480-6 BMI: 20.8 Code: 22760-0 Heart Rate 1: 64 bpm Height: 5'9" Weight: 141 lbs 06/19/2012 Blood Pressure 1: 120/72 Code: 8480-6 BMI: 21.1 Code: 30667-1 Heart Rate 1: 60 bpm Height: 5'9" Weight: 143 lbs 03/20/2012 Blood Pressure 1: 114/76 Code: 8480-6 Heart Rate 1: 60 bpm Respiratory Rate: 16 bpm Weight: 143 lbs 01/24/2012 Blood Pressure 1: 134/70 Code: 8480-6 Heart Rate 1: 64 bpm Weight: 143 lbs 12/20/2011 Blood Pressure 1: 98/72 Code: 8480-6 BMI: 21.1 Code: 01929-0 Heart Rate 1: 60 bpm Height: 5'9" Respiratory Rate: 16 bpm Weight: 143 lbs 12/09/2011 Blood Pressure 1: 110/60 Code: 8480-6 Heart Rate 1: 66 bpm SpO2: 98% Weight: 141 lbs 08/25/2011 Blood Pressure 1: 112/70 Code: 8480-6 BMI: 20.8 Code: 08700-8 Heart Rate 1: 54 bpm Height: 5'9" Respiratory Rate: 16 bpm Weight: 141 lbs 06/23/2011 Blood Pressure 1: 126/64 Code: 8480-6 Heart Rate 1: 60 bpm Respiratory Rate: 16 bpm Weight: 142 lbs 04/19/2011 Blood Pressure 1: 124/64 Code: 8480-6 BMI: 21.1 Code: 89604-0 Heart Rate 1: 64 bpm Height: 5'9" Respiratory Rate: 16 bpm Weight: 143 lbs 03/23/2011 Blood Pressure 1: 137/71 Code: 8480-6 Heart Rate 1: 57 bpm 03/08/2011 Blood Pressure 1: 154/70 Code: 8480-6 BMI: 20.8 Code: 70458-8 Heart Rate 1: 60 bpm Height: 5'9" Respiratory Rate: 16 bpm Weight: 141 lbs 03/01/2011 Blood Pressure 1: 178/80 Code: 8480-6 Blood Pressure 2: 168/70 Code: 8480-6 BMI: 24.1 Code: 27805-9 Heart Rate 1: 60 bpm Height: 5'9" Respiratory Rate: 16 bpm Weight: 163 lbs 02/01/2011 Blood Pressure 1: 162/84 Code: 8480-6 Heart Rate 1: 60 bpm Respiratory Rate: 16 bpm Weight: 144 lbs 01/27/2011 Blood Pressure 1: 138/54 Code: 8480-6 BMI: 21.1 Code: 62186-7 Heart Rate 1: 68 bpm Height: 5'9" Respiratory Rate: 16 bpm Weight: 143 lbs 01/26/2011 Blood Pressure 1: 148/86 Code: 8480-6 BMI: 21.3 Code: 34741-8 Heart Rate 1: 74 bpm Height: 5'9" Weight: 144 lbs 01/15/2011 Blood Pressure 1: 136/76 Code: 8480-6 BMI: 20.5 Code: 51006-7 Heart Rate 1: 70 bpm Height: 5'10" Weight: 141 lbs 01/06/2011 Blood Pressure 1: 148/72 Code: 8480-6 BMI: 20.2 Code: 04736-6 Heart Rate 1: 72 bpm Height: 5'10" [...] contacts 05/20/2014 None cough Location in the [facility] 03/25/2014 None cough Quality hacking 03/25/2014 [...] Encounters Encounter Performer Loca tion Codes Date ( [id number] EST. 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 P ATIENT, LEVEL III Diagnosis: Essential (primary) hypertension[ICD10: I10] Ale Carlos MD, [facility] CPT-4: 28071 04/13/2018 ([id number]) 98407 EST. P ATIENT, LEVEL IV Diagnosis: Irritable bowel syndrome with constipation[ICD10: K58.1] Diagnosis: Other lesions of oral mucosa[ICD10: K13.79] Diagnosis: Dry mouth, unspecified[ICD10: R68.2] Diagnosis: Encounter for immunization[ICD10: Z23] Diagnosis: Essential (primary) hypertension[ICD10: I10] Ale Carlos MD, [facility] CPT-4: 41327 02/08/2018 ([id number]) 66546 EST. P ATIENT, LEVEL III Diagnosis: Slow transit constipation[ICD10: K59.01] Diagnosis: Dry mouth, unspecified[ICD10: R68.2] Nelly Carlos MD, [facility] CPT-4: 51141 01/19/2018 ([id number]) Miscellaneou s no charge Diagnosis: Acute pharyngitis, unspecified[ICD10: J02.9] Nelly Carlos MD, [facility] CPT-4: 82591 01/13/2018 ([id number]) 22418 EST. P ATIENT, LEVEL III Diagnosis: Candidal stomatitis[ICD10: B37.0] Diagnosis: Cough[ICD10: R05] Nelly Carlos MD, [facility] CPT-4: 46057 01/12/2018 ([id number]) 53578 EST. 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 P ATIENT, LEVEL IV Diagnosis: Irritable bowel syndrome with constipation[ICD10: K58.1] Diagnosis: Malignant neoplasm of prostate[ICD10: C61] Ale Carlos MD, [facility] CPT-4: 97811 11/14/2017 72034 EST. PATIENT, LEVEL IV Diagnosis: Slow transit constipation[ICD10: K59.01] Diagnosis: Gastro-esophageal reflux disease without esophagitis[ICD10: K21.9] Ruchi Carlos MD, [facility] CPT-4: 54299 2017 ([id number]) 90772 EST. P ATIENT, LEVEL IV Diagnosis: Essential (primary) hypertension[ICD10: I10] Diagnosis: Slow transit constipation[ICD10: K59.01] Diagnosis: Underweight[ICD10: R63.6] Diagnosis: Gastro-esophageal reflux disease without esophagitis[ICD10: K21.9] Ale Carlos MD, [facility] CPT-4: 92940 10/13/2017 ([id number]) 70569 EST. P ATIENT, LEVEL IV Diagnosis: Slow transit constipation[ICD10: K59.01] Diagnosis: Gastroparesis[ICD10: K31.84] Diagnosis: Gastro-esophageal reflux disease without esophagitis[ICD10: K21.9] Diagnosis: Dysuria[ICD10: R30.0] Ale Carlos MD, [facility] CPT-4: 32184 09/26/2017 ([id number]) 28324 EST. P ATIENT, LEVEL IV Diagnosis: Other abnormal glucose[ICD10: R73.09] Diagnosis: Slow transit constipation[ICD10: K59.01] Ale Carlos MD, [facility] CPT-4: 69549 09/12/2017 34704 EST. PATIENT, LEVEL III Diagnosis: Other fatigue[ICD10: R53.83] Ruchi Carlos MD, [facility] CPT-4: 18157 09/09/2017 ([id number]) 94635 EST. P ATIENT, LEVEL IV Diagnosis: Slow transit constipation[ICD10: K59.01] Diagnosis: Irritable bowel syndrome with constipation[ICD10: K58.1] Diagnosis: Essential (primary) hypertension[ICD10: I10] Ale Carlos MD, [facility] CPT-4: 51272 08/17/2017 ([id number]) 09961 EST. P ATIENT, LEVEL III Diagnosis: Slow transit constipation[ICD10: K59.01] Diagnosis: Gastroparesis[ICD10: K31.84] Ale Carlos MD, [facility] CPT-4: 73635 07/20/2017 78583 EST. PATIENT, LEVEL III Diagnosis: Irritable bowel syndrome with constipation[ICD10: K58.1] Ruchi Carlos MD, [facility] CPT-4: 09781 07/01/2017 ([id number]) 50712 EST. P ATIENT, LEVEL IV Diagnosis: Essential (primary) hypertension[ICD10: I10] Diagnosis: Gas pain[ICD10: R14.1] Diagnosis: Generalized anxiety disorder[ICD10: F41.1] Diagnosis: Cervicalgia[ICD10: M54.2] Diagnosis: Pain in thoracic spine[ICD10: M54.6] Diagnosis: Unsteadiness on feet[ICD10: R26.81] Ale Carlos MD, [facility] CPT- 4: 43023 06/21/2017 ([id number]) 88848 EST. P ATIENT, LEVEL III Diagnosis: Essential (primary) hypertension[ICD10: I10] Ale Carlos MD, [facility] CPT-4: 93205 03/21/2017 72428 EST. PATIENT, LEVEL III Diagnosis: Other allergic rhinitis[ICD10: J30.89] Nelly Carlos MD, [facility] CPT-4: 22345 03/08/2017 ([id number]) 97616 EST. P ATIENT, LEVEL III Diagnosis: Encounter for immunization[ICD10: Z23] Diagnosis: Other hypotension[ICD10: I95.89] Ale Carlos MD, [facility] CPT-4: 04221 01/25/2017 ([id number]) 61380 EST. P ATIENT, LEVEL III Diagnosis: Essential (primary) hypertension[ICD10: I10] Diagnosis: Acute recurrent maxillary sinusitis[ICD10: J01.01] Ale Carlos MD, [facility] CPT-4: 65032 12/20/2016 ([id number]) 93565 EST. P ATIENT, LEVEL III Diagnosis: Acute recurrent ethmoidal sinusitis[ICD10: J01.21] Ale Carlos MD, C CPT-4: 81471 12/01/2016 ([id number]) 57074 EST. P ATIENT, LEVEL III Diagnosis: Bronchitis, not specified as acute or chronic[ICD10: J40] Diagnosis: Cough[ICD10: R05] Ale Carlos MD, [facility] CPT-4: 36813 11/25/2016 ([id number]) 80704 EST. P ATIENT, LEVEL III Diagnosis: Cough[ICD10: R05] Diagnosis: Bronchitis, not specified as acute or chronic[ICD10: J40] Diagnosis: Candidal esophagitis[ICD10: B37.81] Ale Carlos MD, [facility] CPT- 4: 25349 11/18/2016 ([id number]) 56220 EST. P ATIENT, LEVEL IV Diagnosis: Essential (primary) hypertension[ICD10: I10] Diagnosis: Mild cognitive impairment, so stated[ICD10: G31.84] Ale Carlos MD, C CPT-4: 68695 08/23/2016 ([id number]) 27198 EST. P ATIENT, LEVEL III Diagnosis: Essential (primary) hypertension[ICD10: I10] Ale Carlos MD, C CPT-4: 89321 04/26/2016 ([id number]) Miscellaneou s no charge Diagnosis: Olecranon bursitis, right elbow[ICD10: M70.21] Nelly Carlos MD, [facility] CPT-4: 55517 02/09/2016 ([id number]) 27264 EST. P ATIENT, LEVEL III Diagnosis: Olecranon bursitis, right elbow[ICD10: M70.21] Nelly Carlos MD, [facility] CPT-4: 86315 02/03/2016 ([id number]) 93099 EST. P ATIENT, LEVEL III Diagnosis: Generalized abdominal tenderness[ICD10: R10.817] Ale Carlos MD, C CPT-4: 66026 01/26/2016 30931 EST. PATIENT, LEVEL IV Diagnosis: Other allergic rhinitis[ICD10: J30.89] Ruchi Carlos MD, [facility] CPT-4: 76174 01/21/2016 ([id number]) 35957 EST. P ATIENT, LEVEL IV Diagnosis: Essential (primary) hypertension[ICD10: I10] Diagnosis: Hypo-osmolality and hyponatremia[ICD10: E87.1] Ale Carlos MD, C CPT-4: 87319 12/29/2015 ([id number]) 32880 EST. P ATIENT, LEVEL IV Diagnosis: Essential (primary) hypertension[ICD10: I10] Diagnosis: Mild cognitive impairment, so stated[ICD10: G31.84] Ale Carlos MD, [facility] CPT-4: 53188 09/02/2015 ([id number]) 87624 EST. P ATIENT, LEVEL IV Diagnosis: Mixed hyperlipidemia[ICD10: E78.2] Diagnosis: Generalized anxiety disorder[ICD10: F41.1] Diagnosis: Mild cognitive impairment, so stated[ICD10: G31.84] Diagnosis: Essential (primary) hypertension[ICD10: I10] Diagnosis: Encounter for immunization[ICD10: Z23] Ale Carlos MD, [facility] CPT-4: 23958 05/06/2015 ([id number]) 15574 EST. 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 P ATIENT, LEVEL IV Diagnosis: ESSENTIAL HYPERTENSION[ICD9: 401.9] Diagnosis: GENERALIZED ANXIETY DISEASE[ICD9: 300.02] Diagnosis: MILD COGNITIVE IMPAIREMT[ICD9: 331.83] Diagnosis: IRRITABLE COLON[ICD9: 564.1] Ale Carlos MD, [facility] CPT-4: 04889 12/04/2014 ([id number]) 40179 EST. P ATIENT, LEVEL IV Diagnosis: Abdominal pain[ICD9: 789.00] Diagnosis: GENERALIZED ANXIETY DISEASE[ICD9: 300.02] Diagnosis: Hyponatremia[ICD9: 276.1] Diagnosis: ESSENTIAL HYPERTENSION[ICD9: 401.9] Nelly Carlos MD, [facility] CPT-4: 86039 09/24/2014 ([id number]) 72551 EST. P ATIENT, LEVEL IV Diagnosis: ESSENTIAL HYPERTENSION[ICD9: 401.9] Diagnosis: Osteoarthritis[ICD9: 715.90] Diagnosis: Mild cognitive impairment with memory loss[ICD9: 331.83] Ale Carlos MD, C CPT-4: 66091 09/09/2014 ([id number]) 21199 EST. P ATIENT, LEVEL III Diagnosis: GENERALIZED ANXIETY DISEASE[ICD9: 300.02] Diagnosis: Depression[ICD9: 311] Ale Carlos MD, [facility] CPT-4: 32964 07/26/2014 ([id number]) 99801 EST. P ATIENT, LEVEL IV Diagnosis: ESSENTIAL HYPERTENSION[ICD9: 401.9] Diagnosis: GENERALIZED ANXIETY DISEASE[ICD9: 300.02] Diagnosis: MILD COGNITIVE IMPAIREMT[ICD9: 331.83] Ale Carlos MD, [facility] CPT-4: 39762 07/10/2014 ([id number]) 07105 EST. P ATIENT, LEVEL IV Diagnosis: Dizziness[ICD9: 780.4] Diagnosis: GENERALIZED ANXIETY DISEASE[ICD9: 300.02] Diagnosis: Depression[ICD9: 311] Diagnosis: ESSENTIAL HYPERTENSION[ICD9: 401.9] Diagnosis: Urinary frequency[ICD9: 788.41] Ale Carlos MD, [facility] CPT-4: 76346 06/06/2014 ([id number]) 01692 EST. P ATIENT, LEVEL IV Diagnosis: ESSENTIAL HYPERTENSION[ICD9: 401.9] Diagnosis: GENERALIZED ANXIETY DISEASE[ICD9: 300.02] Diagnosis: Mild cognitive impairment with memory loss[ICD9: 331.83] Ale Carlos MD, C CPT-4: 72640 05/29/2014 ([id number]) 24994 EST. P ATIENT, LEVEL IV Diagnosis: Pneumonia[ICD9: 486] Diagnosis: COUGH[ICD9: 786.2] Diagnosis: Hyponatremia[ICD9: 276.1] Diagnosis: ALLERGIC RHINITIS[ICD9: 477.9] Ale Carlos MD, [facility] CPT-4: 96875 05/20/2014 ([id number]) 61999 EST. P ATIENT, LEVEL III Diagnosis: ESSENTIAL HYPERTENSION[ICD9: 401.9] Diagnosis: Cough[ICD9: 786.2] Ale Carlos MD, [facility] CPT-4: 13755 03/25/2014 ([id number]) 15323 EST. P ATIENT, LEVEL III Diagnosis: COUGH[ICD9: 786.2] Diagnosis: ALLERGIC RHINITIS[ICD9: 477.9] Nelly Carlos MD, [facility] CPT- 4: 70545 02/08/2014 ([id number]) 02486 EST. P ATIENT, LEVEL III Diagnosis: ESSENTIAL HYPERTENSION[ICD9: 401.9] Diagnosis: Nasal congestion[ICD9: 478.19] Ale Carlos MD, [facility] CPT-4: 19882 12/24/2013 ([id number]) 53292 EST. P ATIENT, LEVEL III Diagnosis: Seasonal allergies[ICD9: 477.9] Diagnosis: Nasal congestion[ICD9: 478.19] Diagnosis: ABNORMAL LOSS OF WEIGHT[ICD9: 783.21] Ale Carlos MD, [facility] CPT-4: 06995 11/20/2013 ([id number]) 81620 EST. P ATIENT, LEVEL III Diagnosis: ABNORMAL LOSS OF WEIGHT[ICD9: 783.21] Diagnosis: MALAISE AND FATIGUE[ICD9: 780.79] Diagnosis: Hyponatremia[ICD9: 276.1] Nelly Carlos MD, [facility] CPT- 4: 07265 10/30/2013 ([id number]) 83558 EST. P ATIENT, LEVEL III Diagnosis: Acute maxillary sinusitis[ICD9: 461.0] Diagnosis: COUGH[ICD9: 786.2] Ale Carlos MD, [facility] CPT-4: 43429 10/08/2013 ([id number]) 50993 EST. P ATIENT, LEVEL IV Diagnosis: ESSENTIAL HYPERTENSION[SNOMED: 44034708] Diagnosis: GENERALIZED ANXIETY DISEASE[ICD9: 300.02] Diagnosis: OSTEOARTH NOS-UNSPEC[ICD9: 715.90] Diagnosis: Coronary artery disease[ICD9: 414.00] Ale Carlos MD, [facility] CPT-4: 53979 06/18/2013 ([id number]) 84807 EST. P ATIENT, LEVEL III Diagnosis: ESSENTIAL HYPERTENSION[SNOMED: 88173148] Ale Carlos MD, [facility] CPT-4: 29727 04/04/2013 ([id number]) 37603 EST. P ATIENT, LEVEL IV Diagnosis: ESSENTIAL HYPERTENSION[SNOMED: 16414601] Diagnosis: Leukopenia[ICD9: 288.50] Diagnosis: Encounter for long-term (current) use of other medications[ICD9: V58.69] Ale Carlos MD, [facility] CPT-4: 56870 02/19/2013 ([id number]) 83285 EST. P ATIENT, LEVEL IV Diagnosis: ESSENTIAL HYPERTENSION[SNOMED: 07455520] Diagnosis: MILD COGNITIVE IMPAIREMT[ICD9: 331.83] Ale Carlos MD, [facility] CPT-4: 14320 10/16/2012 ([id number]) 52903 EST. P ATIENT, LEVEL IV Diagnosis: ESSENTIAL HYPERTENSION[SNOMED: 50899030] Diagnosis: GENERALIZED ANXIETY DISEASE[ICD9: 300.02] Diagnosis: IRRITABLE COLON[ICD9: 564.1] Ale Carlos MD, [facility] CPT-4: 04115 03/20/2012 66625 EST. PATIENT, LEVEL IV Diagnosis: ESSENTIAL HYPERTENSION[SNOMED: 74714927] Diagnosis: Osteoarthritis[ICD9: 715.90] Diagnosis: HYPERLIPIDEMIA[ICD9: 272.4] Ale Carlos MD, [facility] CPT-4: 30899 01/24/2012 31593 EST. PATIENT, LEVEL IV Diagnosis: ESSENTIAL HYPERTENSION[SNOMED: 88978845] Diagnosis: BPH W URINARY OBS/LUTS[ICD9: 600.01] Ale Carlos MD, [facility] CPT-4: 72473 12/20/2011 ([id number]) 85607 EST. P ATIENT, LEVEL III Diagnosis: Lump in the groin[ICD9: 789.30] [facility] CPT-4: 26962 12/09/2011 ([id number]) 96574 EST. P ATIENT, LEVEL IV Diagnosis: ESSENTIAL HYPERTENSION[SNOMED: 63629842] Diagnosis: Mild cognitive impairment[ICD9: 331.83] Ale Carlos MD, [facility] CPT-4: 75909 08/25/2011 ([id number]) 60954 EST. P ATIENT, LEVEL IV Diagnosis: ESSENTIAL HYPERTENSION[SNOMED: 12408369] Diagnosis: GENERALIZED ANXIETY DISEASE[ICD9: 300.02] Diagnosis: MILD COGNITIVE IMPAIREMT[ICD9: 331.83] Diagnosis: IRRITABLE COLON[ICD9: 564.1] Ale Carlos MD, [facility] CPT-4: 20033 06/23/2011 ([id number]) 10611 EST. 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 PATIENT, LEVEL I Diagnosis: ESSENTIAL HYPERTENSION[SNOMED: 28677385] Ale Carlos MD, [facility] CPT-4: 48584 03/23/2011 25488 EST. PATIENT, LEVEL III Diagnosis: ESSENTIAL HYPERTENSION[SNOMED: 50482139] Diagnosis: Laceration of finger, index[ICD9: 883.0] Ale Carlos MD, [facility] CPT-4: 32880 03/08/2011 40080 EST. PATIENT, LEVEL III Diagnosis: ESSENTIAL HYPERTENSION[SNOMED: 01640458] Diagnosis: Irritable bowel syndrome (IBS)[ICD9: 564.1] Ale Carlos MD, [facility] CPT-4: 77693 03/01/2011 15026 EST. PATIENT, LEVEL IV Diagnosis: Mild cognitive impairment with memory loss[ICD9: 331.83] Diagnosis: GENERALIZED ANXIETY DISEASE[ICD9: 300.02] Diagnosis: Bruising[ICD9: 924.9] Diagnosis: HYDROCELE[ICD9: 603.9] Ale Carlos MD, [facility] CPT-4: 92507 02/01/2011 45488 EST. PATIENT, LEVEL III Diagnosis: Testicular pain[ICD9: 608.9] Diagnosis: GENERALIZED ANXIETY DISEASE[ICD9: 300.02] Nelly Carlos MD, [facility] CPT-4: 02484 01/27/2011 29220 EST. PATIENT, LEVEL III Diagnosis: Arm bruise[ICD9: 923.9] [facility] CPT-4: 49105 01/26/2011 OFFICE VISIT, NEW - LEVEL 4 Diagnosis: DIARRHEA[ICD9: 787.91] Diagnosis: Elevated liver function tests[ICD9: 790.6] Diagnosis: Abdominal discomfort[ICD9: 789.00] [facility] CPT- 4: 97960 01/06/2011 Plan of Care Planned Activity Notes [...] nail debridement. 05/18/2018 Appointment: [facility] (15 min) Moderate 05/18/2018 Patient Education: Patient [...] mouth discomfort. 04/13/2018 Appointment: [phone] (30 min) Complex 04/13/2018 Patient Education: Patient [...] monitor symptoms of GI upset. 02/08/2018 Appointment: Ael Carlos WPtel: [address] [place] [address] (30 min) Complex 02/08/2018 Patient Education: Patient Medication Summary Completed 02/08/2018 Patient Education: Hypertension Completed 02/08/2018 Appointment: Nelly Keen WPtel: [facility]8 [address] (15 min) Moderate 02/02/2018 Visit Plan: Ldcnczzllenx-webwxft-xu start trulance 3mg daily Dry mouth-biotene mouth spray 01/19/2018 Appointment: Ale Carlos WPtel: [address] [place], [place] [phone] (30 min) Complex 01/19/2018 Patient Education: Patient [...] or concerns 01/12/2018 Appointment: Nelly Keen WPtel: [address] [place], [place] [phone] (15 min) Moderate 01/12/2018 Patient Education: Patient [...] be helping his symptoms. He is reporting embedded developer pain - i suspect that some of this is due to his eating early at night then taking at least 10 pills at bedtime without any food in his stomach, then excessive acid production with the pill burden causing him to wake up with pain in the embedded developer hours. I have recommended that he is to eat 1/2 a sandwich with his ensure at bedtime. 01/05/2018 Appointment: [facility] [facility] [place] (15 min) Moderate 01/05/2018 Patient Education: Patient Medication Summary Completed 01/05/2018 Appointment: Ale aCrlos [phone] [facility] (30 min) Complex 01/04/2018 Visit Plan: [...] 11/03/2017 Care Plan: Referral Order SNOMED-CT : [id number] Pending 10/28/2017 Visit Plan: Constipation - uncontro [...] improving. 2017 Appointment: Ruchi Agee WPtel: [phone] [facility] (15 min) Moderate 2017 Patient Education: Patient [...] portion size. 10/13/2017 Appointment: Ale Carlos WPtel: [facility]5 [facility] (30 min) Complex 10/13/2017 Patient Education: Patient [...] medication. 09/26/2017 Appointment: Ale Carlos WPtel: [facility]7 [facility] (15 min) Moderate 09/26/2017 Patient Education: Patient Medication Summary Completed 09/26/2017 Appointment: Ale Carlos WPtel: [facility]9 [facility] (30 min) Complex 09/14/2017 Visit Plan: [...] ER. 09/12/2017 Appointment: Ale Carlos WPtel: [facility]3 [facility] [place] (30 min) Complex 09/12/2017 Patient Education: Patient Medication Summary Completed 09/12/2017 Visit Plan: Ongoing fatigue - persi stent - will check labs and treat as indicated - pt is to notify clinic if symptoms do not improve, if they worsen, or with any changes, questions, or concerns. 09/09/2017 Appointment: Ruchi Agee WPtel: [address] [phone] (30 min) Complex 09/09/2017 Patient Education: Patient [...] home. 08/17/2017 Appointment: Ale Carlos WPtel: [facility] (15 min) Moderate 08/17/2017 Patient Education: [...] foods. 07/20/2017 Appointment: Ale Carlos WPtel: [facility] [place] (30 min) Complex 07/20/2017 Appointment: Ale Carlos WPtel: [facility] (30 min) Complex 07/20/2017 Patient Education: Patient Medication Summary Completed 07/20/2017 Appointment: Ale Carlos WPtel: [facility] [place] (30 min) Complex 07/19/2017 Appointment: Ale Carlos WPtel: [facility] [place] (15 min) Moderate 07/18/2017 Visit [...] regimen. 07/01/2017 Appointment: Ruchi Agee WPtel: [facility] (30 min) Complex 07/01/2017 Appointment: Ruchi Agee WPtel: [address] [place], [place] [phone] (30 min) Complex 07/01/2017 Patient Education: Patient Medication Summary Completed 07/01/2017 Visit Plan: Neck and upper back reji n and gait unsteadiness - referral to Ul[facility] castañeda for upper and low back pain and left arm pain and have gait eval. get Aspercreme from [employer] for your upper neck/upper back. Abdominal upset/cramping - lactaid pills - take before you drink milk or eat cheese or ice cream or yogurt use gas-ex one pill three times daily Chronic anxiety - stable - continue with current management. 06/21/2017 Appointment: Ale Carlos WPtel: [facility] (30 min) Complex 06/21/2017 Patient Education: Patient [...] at home. 03/21/2017 Appointment: Ale Carlos WPtel: [facility]5 [facility] (30 min) Complex 03/21/2017 Patient Education: [...] allergy spray. 03/08/2017 Appointment: Nelly Keen WPtel: [facility] (30 min) Complex 03/08/2017 Patient Education: [...] shot 01/25/2017 Appointment: Ale Carlos WPtel: [facility] (30 min) Complex 01/25/2017 Patient Education: [...] not improving. 12/20/2016 Appointment: Ale Carlos WPtel: [address] [place] [address] (30 min) Complex 12/20/2016 Patient Education: Patient Medication Summary Completed 12/20/2016 Patient Education: Hypertension Completed 12/20/2016 Appointment: Ruchi Agee WPtel: [facility]3 [address] - Annual Wellness Visit 12/03/2016 Visit [...] worsen. 11/25/2016 Appointment: Ale [facility]Pt[phone] [facility] (15 min) Moderate 11/25/2016 Patient Education: Patient [...] thrush. 11/18/2016 Appointment: Ale Carlos WPtel: [facility]8 [facility] (15 min) Moderate 11/18/2016 Patient Education: [...] namenda. labs to be done from [facility] 08/23/2016 Appointment: Ale Carlos WPtel: [facility] (30 min) Complex 08/23/2016 Patient Education: [...] home. 04/26/2016 Appointment: Ale Carlos WPtel: [facility] (30 min) Complex 04/26/2016 Patient Education: Patient Medication Summary Completed 04/26/2016 Visit Plan: Joint effusion - recomm ended drainage and referral to orthopedic surgeon for surgical debridement of bursa 02/17/2016 Appointment: Ale Carlos [facility]Ptel: [phone] (30 min) Complex 02/17/2016 Patient Education: Patient Medication Summary Completed 02/17/2016 Visit Plan: Bursitis-right elbow-dr healy today in the office- increase anti inflammatories for the next 5 days as directed-call if symptoms do not resolve, swelling returns or new symptoms develop-patient verbalized understanding of plan. 02/09/2016 Appointment: Nelly Keen WPtel: [facility]5 [phone] (30 min) Complex 02/09/2016 Patient Education: Patient Medication Summary Completed 02/09/2016 Patient Education: Patient Medication Summary Completed 02/05/2016 Care Plan: Metabolic Pending 02/05/2016 Visit Plan: Bursitis-right elbow-dr healy today in the office- increase anti inflammatories for the next 5 days as directed-call if symptoms do not resolve, swelling returns or new symptoms develop-patient verbalized understanding of plan. 02/03/2016 Appointment: Nelly Keen WPtel: [phone] (30 min) Complex 02/03/2016 Patient Education: Patient Medication Summary Completed 02/03/2016 Patient Education: Patient Medication Summary Completed 01/30/2016 Care Plan: Metabolic Due on Pending 01/30/2016 Visit Plan: Abdominal pain - nausea - Pt to have IV fluids at hospital 01/26/2016 Appointment: Ale Carlos WPtel: [facility] (30 min) Complex 01/26/2016 Patient Education: Patient [...] allergy spray. 01/21/2016 Appointment: Nelly Keen WPtel: [address] [phone] (30 min) Complex 01/21/2016 Patient Education: Patient [...] treatment. 09/02/2015 Appointment: Ale Carlos [facility]Ptel: [facility] (15 min) Moderate 09/02/2015 Patient Education: [...] today 05/06/2015 Appointment: Ale Carlos WPtel: [facility]5 [facility] (15 min) Moderate 05/06/2015 Patient Education: Patient Medication Summary Completed 05/06/2015 Patient Education: Hypertension Completed 05/06/2015 Care Plan: COMPLETE CBC AUTOMATED LOINC : 63893-2 Ordered 05/06/2015 Visit Plan: Hypertension - well [...] current medications. 03/05/2015 Appointment: Ale Carlos WPtel: [facility]5 [facility] (30 min) Complex 03/05/2015 Patient Education: [...] -has improved. 12/04/2014 Appointment: Ale Carlos WPtel: [facility] Follow up 12/04/2014 Patient Education: Patient Medication [...] 09/24/2014 Care Plan: [facility] : 99050-2 Ordered 09/24/2014 Visit Plan: Hypertension - well [...] THAT HE SHOULD NOT BE DRIVING TO [place] [employer] 07/26/2014 Appointment: Sick 07/26/2014 Appointment: Sick 07/26/2014 [...] medication list. 07/10/2014 Appointment: Ale Carlos WPtel: [facility] Follow up 07/10/2014 Patient Education: Patient Medication Summary Completed 07/10/2014 Patient Education: Hypertension Completed 07/10/2014 Appointment: Ale Carlos WPtel: [facility]4 [facility] Follow up 06/20/2014 Appointment: Ale Carlos WPtel: [facility] Follow up 06/10/2014 Visit Plan: Anxiety [...] in blood pressure readings at home. Urinary jonzdvrhn-KZA-rchtcj flomax to bedtime Dizziness-stop hydrocodone and ativan [...] WEEKS 05/29/2014 Appointment: Ale Carlos WPtel: [address] [facility] Sick 05/29/2014 Patient Education: Patient Medication Summary Completed 05/29/2014 Patient Education: Hypertension Completed 05/29/2014 Appointment: Ale Carlos WPtel: [facility]5 [facility] Lab Draw 05/23/2014 Patient Education: Patient Medication Summary Completed 05/23/2014 Visit Plan: Pneumonia - Pt has been diagnosed with pneumonia by physical exam. A chest xray has been ordered as have antibiotics. The pt is aware of the diagnosis and the need for acute treatment of this illness. A agjqzlna-hminl-djigzwe flonase nasal spray Hyponatremia-increase gatorade as directed 05/20/2014 Visit Plan: Pneumonia - Pt has been diagnosed with pneumonia by physical exam. A chest xray has been ordered as have antibiotics. The pt is aware of the diagnosis and the need for acute treatment of this illness. A awdfgmbz-ujwqf-zqtppnp flonase nasal spray Hyponatremia-increase gatorade as directed ADDENDUM: RECOMMEND PATIENT START ON ALBUTEROL NEBULIZER TREATMENTS EVERY 4 HOURS NEEDED FOR SHORTNESS OF BREATH/WHEEZING. DX SECONDARY PNEUMONIA FROM INFLUENZA, COUGH 05/20/2014 Patient Education: Patient Medication Summary Completed 05/20/2014 Appointment: Ale Carlos WPtel: [facility] [place] Injection 03/26/2014 Patient Education: Patient [...] Dr. Merlos. 03/25/2014 Appointment: Ale Carlos WPtel: [facility] Follow up 03/25/2014 Patient Education: Patient Medication Summary Completed 03/25/2014 Patient Education: Hypertension Completed 03/25/2014 Visit Plan: Gwqfp-vhobvymlx-mzjemzk laryngeal reflux-RX for protonix (patient is on [...] at home. 12/24/2013 Appointment: Ale Carlos WPtel: [address] [place], [place] [phone] Follow up 12/24/2013 Patient Education: Patient Medication [...] portion size. 11/20/2013 Appointment: Ale Carlos WPtel: [address] [place], [place] [phone] Follow up 11/20/2013 Patient Education: Patient Medication Summary Completed 11/20/2013 Appointment: Ale Carlos WPtel: [address] [place], [place] [phone] Follow up 11/06/2013 Visit Plan: Weight loss-increase po rtions-add snacks in the morning and afternoon-follow up in 3 weeks for weight check Low sodium-check labs-restart gatorade Irvkrqd-ojoibf-atkjk labs and UA 10/30/2013 Patient Education: Patient Medication Summary Completed 10/30/2013 Appointment: Ale [facility] Follow up 10/16/2013 Visit Plan: Sinusitis - [...] Merlos. 06/18/2013 Appointment: Ale [facility] [facility] Follow up 06/18/2013 Patient Education: Patient [...] concerns. 04/04/2013 Appointment: [facility] Follow up 04/04/2013 Patient Education: Patient [...] report. 02/19/2013 Appointment: Ale Carlos WPtel: [address] [facility] Follow up 02/19/2013 Patient Education: Patient [...] loss. 10/16/2012 Appointment: Ale Carlos WPtel: [address] [facility] Follow up 10/16/2012 Patient Education: Patient [...] colon return. 06/19/2012 Appointment: Ale Carlos WPtel: [address] [place], [place] [phone] Follow up 06/19/2012 Patient Education: Patient Medication [...] the bentyl. 03/20/2012 Appointment: Ale Carlos WPtel: [facility] [facility] Follow up 03/20/2012 Patient Education: Patient Medication Summary Completed 03/20/2012 Patient Education: High Blood Pressure: Essential Hypertension Completed 03/20/2012 Appointment: Ale Carlos WPtel: [address] [place], [place] [phone] Follow up 02/22/2012 Visit Plan: Hypertension - [...] needed. 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 I anticipate it will be at least 4-6 months before he can be off of the plavix and aspirin for additonal procedures unless it is of extreme urgency. 12/20/2011 Appointment: [phone] [facility] [place] Follow up 12/20/2011 Patient Education: Patient Medication Summary Completed 12/20/2011 Patient Education: High Blood Pressure: Essential Hypertension Completed 12/20/2011 Appointment: [facility] [phone] [facility] [place] Other 12/13/2011 Visit Plan: Pain in groin post hear t cath with increased discomfort and increased size - will order an ultrasound for today. 12/09/2011 Appointment: Ale Carlos WPtel: [phone] [facility] Other 12/09/2011 Patient Education: Patient Medication Summary Completed 12/09/2011 Visit Plan: Hypertension - well evan martines [...] medication. 08/25/2011 Appointment: Ale Carlos WPtel: [facility] [address] Other 08/25/2011 Patient Education: Patient Medication Summary [...] low doses. 06/23/2011 Appointment: Ale Carlos WPtel: [phone] [facility] Other 06/23/2011 Patient Education: Patient Medication Summary Completed 06/23/2011 Patient Education: High Blood Pressure: Essential Hypertension Completed 06/23/2011 Appointment: Ale Carlos WPtel: [facility] Other 04/26/2011 Visit Plan: Hypertension - [...] etc. 04/19/2011 Appointment: Ale Carlos WPtel: [address] [place], [place] [phone] Other 04/19/2011 Patient Education: Patient Medication Summary Completed 04/19/2011 Patient Education: High Blood Pressure: Essential Hypertension Completed 04/19/2011 Patient Education: Diverticulosis Diet Completed 04/19/2011 Appointment: Nelly Keen WPtel: [address] [place], [place] [id number] Other 03/23/2011 Patient Education: Patient [...] arise. 03/08/2011 Appointment: Ale Carlos WPtel: [address] [place], [place] [phone] Other 03/08/2011 Patient Education: Patient Medication Summary [...] a day. 03/01/2011 Appointment: Ale Carlos WPtel: [facility] [place] Other 03/01/2011 Patient Education: Patient Medication Summary Completed 03/01/2011 Patient Education: High Blood Pressure: Essential Hypertension Completed 03/01/2011 Appointment: Nelly Keen WPtel: [phone] [place] Injection 02/25/2011 Patient Education: Patient Medication Summary Completed 02/25/2011 Appointment: Ale Carlos WPtel: [facility] [place] Injection 02/16/2011 Patient Education: Patient Medication Summary Completed 02/16/2011 Appointment: Ale Carlos WPtel: [address] [place], [place] [phone] [place] Injection 02/09/2011 Patient Education: Patient Medication Summary Completed 02/09/2011 Appointment: Ale Carlos WPtel: [address] [place], [place] [phone] [place] Follow up 02/02/2011 Visit Plan: Hydrocele [...] Kenji Dash in [place]. Upon our conversation wdos-ahx-bryqo, Kenji vocalized concerns for his Dad's memory. He stated that he has noticed his father not being as quick in his cognitive functioning, he has noticed some concerns with driving as well. He states that he will discuss these concerns with his parents and other siblings. 02/01/2011 Appointment: Ale Carlos WPtel: [address] [place] [address] Other 02/01/2011 Patient Education: Patient Medication Summary [...] as needed. 01/27/2011 Appointment: Ale Carlos WPtel: [address] [place], [place] [phone] [place] New Patient 01/27/2011 Patient Education: Patient Medication Summary Completed 01/27/2011 Visit Plan: Bruising/hematoma left arm-discussed natural and expected course of this diagnosis and to alert me if symptoms do not follow expected course or if any worse, Continue with ice/heat as needed for disc omfort. Call for any concerns. 01/26/2011 Appointment: Nelly Keen WPtel: [address] [place], [place] [phone] [place] Other 01/26/2011 Patient Education: Patient Medication [...] OF 01/15/11 01/15/2011 Appointment: Nelly Keen WPtel: [phone] [phone] [place] [address] Other 01/15/2011 Patient Education: Patient Medication Summary [...] diet. 01/06/2011 Appointment: Ale [phone] [facility] Patient 01/06/2011 Patient Education: Patient Medication Summary Completed 01/06/2011 Referral: External, Ordering Provider Referral Relationship Instructions Comment Increase your loraze anmol to 1/2 tablet [...] need for acute treatment of this illness. Wsphdvxgt-cnosn-kczpgan flonase nasal spray Hyponatremia-increase gatorade as directed . Pneumonia - Pt has been diagnosed with pneumonia by physical exam. A chest xray has been ordered as have antibiotics. The pt is aware of the diagnosis and the need for acute treatment of this illness. Ygjpjaeei-ojpcu-pilnxiz flonase nasal spray Hyponatremia-increase gatorade as directed ADDENDUM: RECOMMEND PATIENT START ON ALBUTEROL NEBULIZER TREATMENTS EVERY 4 HOURS NEEDED FOR SHORTNESS OF BREATH/WHEEZING. DX SECONDARY PNEUMONIA FROM INFLUENZA, COUGH . Hypertension - wel l controlled - [...] the nasal steroid allergy spray. stop the multivitami n stop the calcium [...] be helping his symptoms. He is reporting embedded developer pain - i suspect that some of this is due to his eating early at night then taking at least 10 pills at bedtime without any food in his stomach, then excessive acid production with the pill burden causing him to wake up with pain in the embedded developer hours. I have recommended that he is to eat 1/2 a sandwich with his ensure at bedtime. . Ongoing fatigue - persistent - will check labs and treat as indicated - pt is to notify clinic if symptoms do not improve, if they worsen, or with any changes, questions, or concerns. . Abdominal pain - n ausea - Pt to have IV fluids at hospital Blood pressure check today in the office-improving. . 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 I anticipate it will be at least 4-6 months before he can be off of the plavix and aspirin for additonal procedures unless it is of extreme urgency. CHECK LABS-CBC, CMP, UA WITH C&S IF INDICATED . Weight loss-increase portions-add snac ks in the morning and afternoon-follow up in 3 weeks for weight check Low sodium-check labs-restart gatorade Ohkwvus-zcjfbz-cnwvv labs and UA . Abdominal symptoms with elevated liver enzymes- [...] days of the lactose free diet. . Joint effusion - r ecommended drainage [...] spray in the nasal steroid allergy spray. Appointment in [address] [place] [address] Carlos. Recommend Lactobacillus 1 orally [...] concerns . Hypertension - wel l controlled - continue with current medications, continue with no added salt diet. Pt has been encouraged to exercise daily. The pt has been advised to call the office if there are any acute concerns about change in blood pressure readings at home. . Constipation - co ntinue with Miralax [...] the glyburide as prescribed through the ER. on the Requip - decr ease the [...] twice HTN-well controlled-no change in treatment . Twsrv-ygdjiapwf-ti spect laryngeal reflux-RX for protonix (patient is [...] continue with treatment per Dr. Merlos. . Ethmoid sinusitis - check sinus xray [...] are not improving. Anxiety -has improved. ESCITALOPRAM (LEXAPR O) 5MG DAILY AT BEDTIME-THIS [...] in blood pressure readings at home. Urinary fwpgxtsre-FFA-shvxji flomax to bedtime Dizziness-stop hydrocodone and ativan get Aspercreme from [facility] for your upper [...] and have gait eval. get Aspercreme from [facility] for your upper neck/upper back. Abdominal upset/cramping [...] Kenji Dash in [place]. Upon our conversation rxhg-iic-edvwq, Kenji vocalized concerns for his Dad's memory. He stated that he has noticed his father not being as quick in his cognitive functioning, he has noticed some concerns with driving as well. He states that he will discuss these concerns with his parents and other siblings. stop losartan - chec k blood pressure and heart rate twice [...] to be making Dr. Dash nauseated. decrease CELEXA (gen ernie name is citalopram) [...] change in blood pressure readings at home. Dr. Carlos talked to Dr. Merlos today [...] 110 for the bottom number flu shot sour candies - like kendrick jolly ranchers [...] THAT HE SHOULD NOT BE DRIVING TO [place] Pt is to try 1/2 pil l [...] does, then trial off of the bentyl. stop the Cetirizine as this may be [...] x 2 weeks, then use as needed. Trulance 3mg daily biotene dry mouth spray -it is over the counter . Cqnijpbxpfsd-utygfmt-uhdiaux trulance 3mg daily Dry mouth-biotene mouth spray INCREASE YOUR MELOXI CAM (MOBIC) TO 1/2 [...]
--- OUTSIDE RECORDS SUMMARY | 2019-07-16 07:58 | XMS REPORT | CCD ---
Author Author Kenneth Carlos Organization Ale Carlos MD, [facility] Address [address] [place] [address] Phone Care Team Providers Care Director Drug Name Role Phone Ale Carlos PP Unavailable CCM Unavailable Summary Purpose Interface Exchange Insurance Providers Payer name Policy type / Coverage type Covered democrat ID Effective Begin Date Effective End Date WPS Medicare Part B Medicare Part B [id number] Unknown Unknown [facility] icare Part B [id number] Unknown Unk nown Family history Runs in the family Diagnosis Age At Onset No Family Disease Entered N/A Mother Diagnosis Age At Onset No Family Disease Entered N/A Father Diagnosis Age At Onset Heart disease Unknown Social History Social History Element Codes Description Effective Dates [place] of [place] 10/14/19 18 Living arrangements Unknown House 01/11/2011 Number of adults in household Unknown 2 01/11/2011 Education level Unknown Post-Graduate PHD in chemistry 01/11/2011 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 Unknown Has never used illegal drugs 011 Allergies, Adverse Reactions, Alerts Substance Reaction Codes Entered Date Inactivated Date Status * NO KNOWN FOOD NAYE RGIES Unknown 04/19/2011 No Inactive Date Active Toradol RxNorm: 26365 03/05/2011 No Inactive Date Active Lisinopril cough, [...] Instructions clopidogrel 75 mg ta blet RxNorm: 190389 TAKE 1 TABLET BY MOUT H EVERY DAY 06/23/2018 12/19/2018 Ac tive Zantac 150 mg tablet RxNorm: 796360 1 TABLET(S) PO QAM 06/12/2018 01/07/2019 Active lisinopril 20 mg tablet RxNorm: 025040 TAKE 1 TABLET DAILY 06/05/2018 12/01/2018 Active triamterene 37.5 mg- hydrochlorothiazide 25 mg tablet RxNorm: 953823 1 Tablet(s) PO daily 05/18/2018 12/13/2018 Active cetirizine 10 mg tablet RxNorm: 4038016 TABLET(S) 1 TABLET(S) PO DAILY TO TAKE I ROXANNATEAD OF THE CLARITIN 03/13/2018 02/05/2019 Active amlodipine 10 mg tablet RxNorm: 829267 TAKE 1 TABLET BY MOUTH EVERY DAY 03/09/2018 10/04/2018 Ac tive fluticasone 50 mcg/a ctuation nasal spray,suspension RxNorm: 0200695 1 [place] NASAL BID 02/08/2018 No Stop Date Active fluticasone 50 mcg/a ctuation nasal spray,suspension RxNorm: 1239474 1 [place] NASAL BID 02/08/2018 02/07/2018 Inactive Trulance 3 mg tablet RxNorm: 8703641 1 Tablet(s) PO QAM 01/19/2018 07/17/2018 Active cefdinir 300 mg capsule RxNorm: 621111 1 Capsule(s) PO BID 12/28/2017 01/03/2018 Inactive cefdinir 300 mg capsule RxNorm: 478675 1 Capsule(s) PO BID 12/28/2017 12/27/2017 Inactive clopidogrel 75 mg ta blet RxNorm: 474554 TAKE 1 TABLET BY MOUT H EVERY DAY 12/26/2017 06/22/2018 In active Namenda 10 mg tablet RxNorm: 977110 Tablet(s) TAKE 1 TABLET BY MOUTH TWICE D AILY. 12/15/2017 No Stop Date Active Robinul 1 mg tablet RxNorm: 509847 1/2 Tablet(s) PO AC & HS 12/12/2017 12/14/2017 Inactive Robinul 1 mg tablet RxNorm: 230300 1/2 Tablet(s) PO AC & HS 12/12/2017 12/11/2017 Inactive donepezil 10 mg tablet RxNorm: 094890 1 TABLET(S) PO DAILY TAKE 1 TABLET BY MO UTH ONCE DAILY 12/08/2017 12/11/2017 Inactive Patient requests 90 days supply lisinopril 20 mg tablet RxNorm: 492381 TAKE 1 TABLET DAILY 12/05/2017 01/11/2018 Inactive Cymbalta 30 mg capsu le,delayed release RxNorm: 653802 1 Capsule(s) PO daily 12/05/2017 12/04/2017 In active Cymbalta 30 mg capsu le,delayed release RxNorm: 873662 1 Capsule(s) PO daily 12/05/2017 12/05/2017 In active Trulance 3 mg tablet RxNorm: 2555118 1 Tablet(s) PO daily 11/14/2017 12/13/2017 Inactive Linzess 145 mcg capsule RxNorm: 6092182 1 Capsule(s) PO daily 10/28/2017 12/14/2017 Inactive Zantac 150 mg tablet RxNorm: 807513 1 Tablet(s) PO QAM 10/13/2017 01/04/2018 Inactive mirtazapine 15 mg ta blet RxNorm: 708065 TAKE ONE TABLET BY MO UTH EVERY DAY 09/29/2017 09/23/2018 Ac tive Mobic 15 mg tablet RxNorm: 098727 1/2 TABLET(S) DAILY 09/26/2017 12/19/2017 Inactive lisinopril 20 mg tablet RxNorm: 217573 1/2 Tablet(s) daily 09/13/2017 01/12/2018 Inactive amlodipine 10 mg tablet RxNorm: 973799 TAKE 1 TABLET BY MOUTH EVERY DAY 09/09/2017 03/07/2018 In active Reglan 5 mg tablet RxNorm: 655370 1/2 Tablet(s) PO TID may increase up to a full pill three times daily as needed for poor GI motility 07/20/2017 09/17/2017 Inactive Protonix 40 mg table t,delayed release RxNorm: 043783 1 Tablet(s) PO daily 07/04/2017 01/29/2018 In active clopidogrel 75 mg ta blet RxNorm: 918754 TAKE 1 TABLET BY MOUT H EVERY DAY 06/20/2017 12/16/2017 In active cetirizine 10 mg tablet RxNorm: 2156946 TABLET(S) 1 TABLET(S) PO DAILY TO TAKE I NSTEAD OF THE CLARITIN 06/06/2017 03/12/2018 Inactive lisinopril 20 mg tablet RxNorm: 117267 TAKE 1 TABLET DAILY 05/30/2017 09/12/2017 Inactive Mobic 15 mg tablet RxNorm: 458029 1/2 TABLET(S) DAILY 03/21/2017 09/16/2017 Inactive donepezil 10 mg tablet RxNorm: 125006 1 Tablet(s) PO daily TAKE 1 TABLET BY MO UTH ONCE DAILY 02/28/2017 11/24/2017 Inactive Patient requests 90 days supply Requip 0.25 mg tablet RxNorm: 340498 1 TABLET(S) PO BID 01/24/2017 01/04/2018 Inactive Patient requests 90 days supply clopidogrel 75 mg ta blet RxNorm: 675511 TAKE 1 TABLET BY MOUT H EVERY DAY 12/23/2016 06/19/2017 In active lisinopril 20 mg tablet RxNorm: 446080 TAKE 1 TABLET DAILY 11/26/2016 05/24/2017 Inactive Kenalog 40 mg/mL hugo pension for injection RxNorm: 8646080 Milliliter(s) Inj 11/25/2016 11/25/2016 In active cefdinir 300 mg capsule RxNorm: 960684 1 Capsule(s) PO BID 11/23/2016 11/27/2016 Inactive cefdinir 300 mg capsule RxNorm: 764889 1 Capsule(s) PO BID 11/23/2016 11/22/2016 Inactive nystatin 100,000 uni t/mL oral suspension RxNorm: 490952 5 Milliliter(s) PO QI D 11/18/2016 11/27/2016 In active azithromycin 250 mg tablet RxNorm: 584299 1 Tablet(s) PO UD 2 p ills on day #1 then one pill daily x 4 more days 11/18/2016 11/22/2016 Inactive Mobic 15 mg tablet RxNorm: 986480 1/2 TABLET(S) DAILY 10/28/2016 03/20/2017 Inactive citalopram 10 mg tablet RxNorm: 783848 TAKE 1 TABLET BY MOUTH EVERY DAY 10/07/2016 03/05/2017 In active Patient requests 90 days supply mirtazapine 15 mg ta blet RxNorm: 293535 TAKE ONE TABLET BY MO UTH EVERY DAY 10/06/2016 09/28/2017 In active mirtazapine 15 mg ta blet RxNorm: 884689 TAKE ONE TABLET BY MO UTH EVERY DAY 10/05/2016 10/05/2016 In active Patient requests 90 days supply amlodipine 10 mg tablet RxNorm: 633931 TAKE 1 TABLET BY MOUTH EVERY DAY 09/14/2016 01/24/2017 In active clopidogrel 75 mg ta blet RxNorm: 289716 TAKE 1 TABLET BY MOUT H EVERY DAY 06/28/2016 12/22/2016 In active lisinopril 20 mg tablet RxNorm: 318312 TAKE 1 TABLET DAILY 05/31/2016 11/25/2016 Inactive donepezil 10 mg tablet RxNorm: 113245 TAKE 1 TABLET BY MOUTH ONCE DAILY 05/11/2016 11/06/2016 In active donepezil 10 mg tablet RxNorm: 591540 TAKE 1 TABLET BY MOUTH ONCE DAILY 04/26/2016 02/28/2017 In active Mobic 15 mg tablet RxNorm: 903518 1/2 Tablet(s) daily 04/19/2016 10/15/2016 Inactive citalopram 10 mg tablet RxNorm: 037650 TAKE 1 TABLET BY MOUTH EVERY DAY 04/06/2016 04/25/2016 In active cetirizine 10 mg tablet RxNorm: 4147970 Tablet(s) 1 TABLET(S) PO DAILY TO TAKE I NSTEAD OF THE CLARITIN 03/30/2016 02/22/2017 Inactive amlodipine 10 mg tablet RxNorm: 383226 TAKE 1 TABLET BY MOUTH EVERY DAY 03/08/2016 01/24/2017 In active amlodipine 10 mg tablet RxNorm: 984153 1 Tablet(s) PO daily TAKE 1 TABLET BY MO UTH ONCE DAILY 03/03/2016 03/07/2016 Inactive Requip 0.25 mg tablet RxNorm: 749432 1 Tablet(s) PO BID 03/03/2016 09/13/2016 Inactive Mobic 15 mg tablet RxNorm: 692820 1 Tablet(s) daily not refilled on a 02/23/2016 04/18/2016 In active cetirizine 10 mg tablet RxNorm: 7801970 1 TABLET(S) PO DAILY TO TAKE INSTEAD OF THE CLARITIN 02/19/2016 03/19/2016 Inactive lisinopril 20 mg tablet RxNorm: 563955 TAKE 1 TABLET DAILY 02/18/2016 05/17/2016 Inactive Namenda 10 mg tablet RxNorm: 751589 Tablet(s) TAKE 1 TABLET BY MOUTH TWICE D AILY. 02/17/2016 12/14/2017 Inactive lisinopril 20 mg tablet RxNorm: 526674 TAKE 1 TABLET DAILY 01/23/2016 01/24/2017 Inactive cetirizine 10 mg tablet RxNorm: 9437841 1 Tablet(s) PO daily to take instead of the claritin 01/21/2016 02/18/2016 Inactive amlodipine 10 mg tablet RxNorm: 586732 1 Tablet(s) PO daily TAKE 1 TABLET BY MO UTH ONCE DAILY 12/02/2015 03/02/2016 Inactive clopidogrel 75 mg ta blet RxNorm: 336796 TAKE 1 TABLET BY MOUT H EVERY DAY 11/25/2015 05/22/2016 In active Mobic 15 mg tablet RxNorm: 495302 TAKE(1/2) TABLET DAILY. 11/17/2015 02/22/2016 Inactive lisinopril 20 mg tablet RxNorm: 204059 TAKE 1 TABLET DAILY 11/17/2015 01/15/2016 Inactive Mobic 15 mg tablet RxNorm: 891401 1/2 Tablet(s) PO daily TAKE (1/2) TABLET DAILY. 11/12/2015 11/16/2015 Inactive citalopram 10 mg tablet RxNorm: 781360 TAKE 1 TABLET BY MOUTH EVERY DAY 10/27/2015 04/05/2016 In active Requip 0.25 mg tablet RxNorm: 213068 1 Tablet(s) PO BID 10/15/2015 02/11/2016 Inactive Requip 0.25 mg tablet RxNorm: 878460 1 Tablet(s) PO BID 10/15/2015 10/14/2015 Inactive mirtazapine 15 mg ta blet RxNorm: 790920 1 Tablet(s) PO daily 09/08/2015 10/01/2016 Inactive donepezil 10 mg tablet RxNorm: 855240 TAKE 1 TABLET DAILY 09/01/2015 04/25/2016 Inactive amlodipine 10 mg tablet RxNorm: 716254 1 Tablet(s) PO daily TAKE 1 TABLET BY MO UTH ONCE DAILY 08/18/2015 12/01/2015 Inactive clopidogrel 75 mg ta blet RxNorm: 437536 1 Tablet(s) PO daily TAKE 1 TABLET DAILY 05/20/2015 11/24/2015 In active Mobic 15 mg tablet RxNorm: 293340 Tablet(s) TAKE (1/2) TABLET DAILY. 04/23/2015 10/19/2015 In active lisinopril 20 mg tablet RxNorm: 511781 TAKE 1 TABLET DAILY 04/22/2015 11/16/2015 Inactive Mobic 15 mg tablet RxNorm: 111436 TAKE (1/2) TABLET DAILY. 04/22/2015 04/22/2015 Inactive sulfamethoxazole 400 mg-trimethoprim 80 mg tablet RxNorm: 340726 1/2 Tablet(s) PO nancy y 03/11/2015 04/09/2015 Inactive Vesicare 5 mg tablet RxNorm: 548425 1 Tablet(s) PO 03/11/2015 05/09/2015 Inactive Protonix 40 mg table t,delayed release RxNorm: 770215 1 Tablet(s) PO BID 03/05/2015 09/30/2015 In active ok to change from [address] Acrhana rivera clopidogrel 75 mg ta blet RxNorm: 464900 1 Tablet(s) PO daily TAKE 1 TABLET DAILY 02/20/2015 05/19/2015 In active Namenda 10 mg tablet RxNorm: 987582 Tablet(s) TAKE 1 TABLET BY MOUTH TWICE D AILY. 01/22/2015 02/16/2016 Inactive amlodipine 10 mg tablet RxNorm: 201014 TAKE 1 TABLET BY MOUTH ONCE DAILY 01/14/2015 08/17/2015 In active donepezil 10 mg tablet RxNorm: 209835 TAKE 1 TABLET DAILY 01/06/2015 08/31/2015 Inactive Levsin 0.125 mg tablet RxNorm: 5711039 1 Tablet(s) PO QID as needed FOR ABD REJI N 11/05/2014 12/03/2014 In active Mobic 15 mg tablet RxNorm: 723198 1/2 Tablet(s) daily TAKE (1/2) TABLET DA MOIZ. 10/01/2014 04/21/2015 Inactive ciprofloxacin 500 mg tablet RxNorm: 303947 1 Tablet(s) PO BID 09/27/2014 10/01/2014 Inactive Flagyl 500 mg tablet RxNorm: 719172 1 Tablet(s) PO TID 09/27/2014 10/03/2014 Inactive take probiotic BID donepezil 10 mg tablet RxNorm: 222130 1/2 Tablet(s) PO BID 09/24/2014 01/05/2015 Inactive lisinopril 20 mg tablet RxNorm: 087259 TAKE 1 TABLET DAILY 09/05/2014 04/21/2015 Inactive amlodipine 10 mg tablet RxNorm: 708720 1 Tablet(s) PO daily 09/02/2014 12/30/2014 Inactive mirtazapine 15 mg ta blet RxNorm: 719432 1 Tablet(s) PO daily 08/28/2014 09/07/2015 Inactive donepezil 10 mg tablet RxNorm: 760551 1 Tablet(s) PO daily 08/28/2014 09/23/2014 Inactive citalopram 10 mg tablet RxNorm: 102518 1 Tablet(s) PO daily 08/28/2014 03/25/2015 Inactive citalopram 10 mg tablet RxNorm: 535078 1 Tablet(s) PO daily 08/07/2014 08/27/2014 Inactive citalopram 10 mg tablet RxNorm: 852763 1 Tablet(s) PO daily 08/07/2014 08/06/2014 Inactive Flagyl 500 mg tablet RxNorm: 098325 1 Tablet(s) PO TID 08/02/2014 08/01/2014 Inactive take probiotic BID Flagyl 500 mg tablet RxNorm: 192443 1 Tablet(s) PO TID 08/02/2014 08/08/2014 Inactive take probiotic BID tamsulosin ER 0.4 mg capsule,extended release 24 hr RxNorm: 611994 1 Capsule(s) PO QHS 06/06/2014 03/10/2015 Inactive TAKE AT BEDTIME escitalopram 5 mg ta blet RxNorm: 711184 1 Tablet(s) PO QPM 06/06/2014 08/06/2014 Inactive doxycycline hyclate 100 mg tablet RxNorm: 561596 1 Tablet(s) PO BID 05/31/2014 05/30/2014 Inactive doxycycline hyclate 100 mg tablet RxNorm: 133465 1 Tablet(s) PO BID 05/31/2014 06/06/2014 Inactive please deliver if not picked by 3pm Aricept 5 mg tablet RxNorm: 238821 1 Tablet(s) PO BID 05/29/2014 08/27/2014 Inactive losartan 50 mg tablet RxNorm: 067083 1/2 Tablet(s) PO daily 05/29/2014 12/28/2015 Inactive clopidogrel 75 mg ta blet RxNorm: 336023 1 Tablet(s) PO daily 05/27/2014 05/26/2014 Inactive Mobic 15 mg tablet RxNorm: 448479 TAKE (1/2) TABLET DAILY. 05/27/2014 09/30/2014 Inactive clopidogrel 75 mg ta blet RxNorm: 746406 TAKE 1 TABLET DAILY 05/27/2014 02/19/2015 Inactive Mobic 15 mg tablet RxNorm: 833525 1/2 Tablet(s) PO daily TAKE (1/2) TABLET DAILY. 05/27/2014 05/26/2014 Inactive prednisone 20 mg tablet RxNorm: 295182 1 Tablet(s) PO BID 05/21/2014 05/25/2014 Inactive albuterol sulfate 2. 5 mg/0.5 mL solution for nebulization RxNorm: 559553 1 inhale INH Q4H as needed 05/21/2014 09/01/2015 Inactive prednisone 20 mg tablet RxNorm: 478920 1 Tablet(s) PO BID 05/21/2014 05/20/2014 Inactive cefdinir 300 mg capsule RxNorm: 098119 1 Capsule(s) PO BID 05/20/2014 05/26/2014 Inactive Zithromax Z-Dequan 250 mg tablet RxNorm: 296707 1 Tablet(s) PO UD 05/20/2014 05/24/2014 Inactive zpack lorazepam 0.5 mg tablet RxNorm: 116553 1/2 to 1 Tablet(s) PO Q8 PRN as needed 04/30/2014 06/05/2014 In active Namenda 10 mg tablet RxNorm: 330638 TAKE 1 TABLET BY MOUTH TWICE DAILY. 04/15/2014 01/21/2015 In active Namenda 10 mg tablet RxNorm: 952284 1 Tablet(s) PO BID 04/15/2014 04/14/2014 Inactive losartan 50 mg tablet RxNorm: 238431 1 Tablet(s) PO daily 03/25/2014 05/28/2014 Inactive Protonix 40 mg table t,delayed release RxNorm: 089898 1 Tablet(s) PO QPM 03/21/2014 06/18/2014 In active ok to change from [address] Archana rivera fluticasone 50 mcg/a ctuation nasal spray,suspension RxNorm: 709508 1 [place] NASAL BID 03/04/2014 09/29/2014 Inactive Protonix 20 mg table t,delayed release RxNorm: 609297 1 Tablet(s) PO QPM 02/08/2014 03/20/2014 In active fluticasone 50 mcg/a ctuation nasal spray,suspension RxNorm: 161690 1 [place] NASAL BID 01/30/2014 03/03/2014 Inactive fluticasone 50 mcg/a ctuation nasal spray,suspension RxNorm: 397837 1 [place] NASAL BID 12/24/2013 01/29/2014 Inactive fluticasone 50 mcg/a ctuation nasal spray,suspension RxNorm: 237450 1 [place] NASAL BID 11/20/2013 12/23/2013 Inactive doxycycline hyclate 100 mg capsule RxNorm: 2475512 1 Capsule(s) PO BID 10/08/2013 10/17/2013 In active doxycycline hyclate 100 mg capsule RxNorm: 4266034 capsule oral 10/08/2013 10/29/2013 Inactive fluticasone 50 mcg/a ctuation nasal spray,suspension RxNorm: 826521 spray,suspension nasl 10/08/2013 11/19/2013 Inactive fluticasone 50 mcg/a ctuation nasal spray,suspension RxNorm: 495047 1 [place] NASAL BID Nasal spray- use twice daily, one spray per nostril twice daily, after 30 minutes, rinse out nose with saline spray. 10/08/2013 10/29/2013 Inactive mirtazapine 7.5 mg t ablet RxNorm: 029607 1/2 Tablet(s) PO daily 08/30/2013 08/27/2014 Inactive lorazepam 0.5 mg tablet RxNorm: 081752 1/2 Tablet(s) PO Q8 PRN 08/21/2013 04/29/2014 Inactive Aricept 5 mg tablet RxNorm: 149647 Tablet(s) PO TAKE 1 TABLET DAILY 08/21/2013 05/28/2014 In active Plavix 75 mg tablet RxNorm: 315563 Tablet(s) PO TAKE 1 TABLET DAILY 05/24/2013 12/04/2014 In active clopidogrel 75 mg ta blet RxNorm: 998897 tablet oral 05/24/2013 05/26/2014 Inactive Plavix 75 mg tablet RxNorm: 109269 1 Tablet(s) PO daily 05/23/2013 05/23/2013 Inactive meloxicam 15 mg tablet RxNorm: 237433 tablet oral 04/26/2013 03/25/2014 Inactive Mobic 15 mg tablet RxNorm: 048533 Tablet(s) PO TAKE (1/2) TABLET DAILY. 04/26/2013 05/26/2014 In active Mobic 15 mg tablet RxNorm: 348238 1/2 Tablet(s) PO daily 04/25/2013 04/25/2013 Inactive lisinopril 20 mg tablet RxNorm: 173526 1 Tablet(s) PO 04/04/2013 03/24/2014 Inactive finasteride 5 mg tablet RxNorm: 305145 tablet oral 03/22/2013 09/01/2015 Inactive lisinopril 10 mg tablet RxNorm: 145657 1 Tablet(s) PO daily 02/14/2013 04/03/2013 Inactive donepezil 5 mg tablet RxNorm: 551842 tablet oral 02/07/2013 12/24/2013 Inactive Influenza Virus Vacc ine 0.5 mL RxNorm: IM 02/06/2013 02/06/2013 Inactive Aricept 5 mg tablet RxNorm: 088427 1 Tablet(s) PO daily 02/06/2013 08/04/2013 Inactive tamsulosin ER 0.4 mg capsule,extended release 24 hr RxNorm: 677475 capsule,extended release 24hr oral 12/21/2012 06/05/2014 Inactive Plavix 75 mg tablet RxNorm: 381366 1 Tablet(s) PO daily 12/05/2012 05/03/2013 Inactive lorazepam 0.5 mg tablet RxNorm: 990664 1/2 Tablet(s) PO Q8 PRN 11/14/2012 08/20/2013 Inactive lisinopril 10 mg tablet RxNorm: 774244 1 Tablet(s) PO daily 08/08/2012 02/03/2013 Inactive Aricept 5 mg tablet RxNorm: 528038 1 Tablet(s) PO daily 08/08/2012 02/03/2013 Inactive Plavix 75 mg tablet RxNorm: 878773 1 Tablet(s) PO daily 07/04/2012 11/30/2012 Inactive Mobic 15 mg tablet RxNorm: 768340 1/2 Tablet(s) PO daily 03/20/2012 04/13/2013 Inactive Namenda 10 mg tablet RxNorm: 696350 1 Tablet(s) PO BID 02/22/2012 04/11/2014 Inactive lorazepam 0.5 mg tablet RxNorm: 877734 1/2 Tablet(s) PO Q8 PRN 02/02/2012 11/13/2012 Inactive lisinopril 10 mg tablet RxNorm: 861487 1 Tablet(s) PO daily 01/24/2012 07/21/2012 Inactive lisinopril 10 mg tablet RxNorm: 210148 1/2 Tablet(s) PO daily 12/20/2011 01/23/2012 Inactive Aricept 5 mg tablet RxNorm: 227547 1 Tablet(s) PO daily 07/14/2011 08/06/2012 Inactive Mobic 15 mg tablet RxNorm: 636291 1 Tablet(s) PO daily 07/14/2011 03/19/2012 Inactive Bentyl 10 mg Cap RxNorm: 195252 1 Capsule(s) PO daily one pill daily and every 6 hours if needed for bowel spasms. 06/23/2011 03/20/2012 Inactive amlodipine 5 mg Tab RxNorm: 830928 2 Tablet(s) PO daily 03/08/2011 12/08/2011 Inactive ZOSTAVAX 19,400 unit Sub-Q Soln RxNorm: 3851007 SQ 02/2502/25/2011 Inactive Pneumovax 23 25 mcg/ 0.5 mL Injection RxNorm: 751664 Milliliter(s) Inj 02/16/2011 02/16/2011 In active Influenza Virus Vacc ine 0.5 mL RxNorm: IM 02/09/2011 02/09/2011 Inactive Namenda 10 mg tablet RxNorm: 601972 1 Tablet(s) PO BID 02/01/2011 02/21/2012 Inactive dicyclomine 10 mg ca psule RxNorm: 031323 capsule oral 01/20/2011 10/29/2013 Inactive Namenda 5 mg tablet RxNorm: 181439 tablet oral 01/20/2011 12/24/2013 Inactive dicyclomine 20 mg ta blet RxNorm: 832415 tablet oral 01/15/2011 10/29/2013 Inactive Flagyl 500 mg Tab RxNorm: 275626 1 Tablet(s) PO TID 01/07/2011 01/06/2011 Inactive Cipro 500 mg Tab RxNorm: 819467 1 Tablet(s) PO BID 01/07/2011 06/23/2011 Inactive Cipro 500 mg Tab RxNorm: 574307 1 Tablet(s) PO BID 01/07/2011 01/06/2011 Inactive Flagyl 500 mg Tab RxNorm: 208521 1 Tablet(s) PO TID 01/07/2011 06/23/2011 Inactive metronidazole 500 mg tablet RxNorm: 376692 tablet oral 01/07/2011 12/24/2013 Inactive sulfamethoxazole 400 mg-trimethoprim 80 mg tablet RxNorm: 283444 tablet oral 12/24/2010 03/10/2015 In active mirtazapine 15 mg ta blet RxNorm: 003549 tablet oral 11/14/2010 12/24/2013 Inactive lisinopril 10 mg tablet RxNorm: 953411 tablet oral 11/14/2010 12/24/2013 Inactive doxycycline hyclate 100 mg tablet RxNorm: 178577 tablet oral 11/04/2010 12/24/2013 Inactive diphenoxylate-atropi ne 2.5 mg-0.025 mg tablet RxNorm: 2826924 tablet oral 11/03/2010 10/29/2013 In active ciprofloxacin 500 mg tablet RxNorm: 056316 tablet oral 11/01/2010 10/29/2013 Inactive Miralax 17 gram/dose oral powder RxNorm: 316012 17 Gram(s) PO daily No Start Date Active ranitidine 150 mg ta blet RxNorm: 065164 1 Tablet(s) PO daily No Start Date Active alprazolam 0.25 mg t ablet RxNorm: 855327 1 Tablet(s) PO BID PRN No Start Date Active simvastatin 20 mg ta blet RxNorm: 366413 1 Tablet(s) PO daily No Start Date Active Vesicare 5 mg tablet RxNorm: 929794 1 Tablet(s) PO daily No Start Date Active bicalutamide 50 mg t ablet RxNorm: 165868 1 Tablet(s) PO daily No Start Date Active Phenergan 6.25 mg/5 mL syrup RxNorm: 775838 5-10 Milliliter(s) PO QID as needed No Start Date Active sulfamethoxazole 500 mg Tab RxNorm: 199049 1/2 Tablet(s) PO daily No Start Date 12/24/2013 Inactive Plavix 75 mg Tab RxNorm: 767410 1 Tablet(s) PO daily No Start Date 01/26/2011 Inactive aspirin 81 mg Cap, D elayed Release RxNorm: 414349 1 Capsule(s) PO daily No Start Date 01/04/2018 Inactive Bentyl 10 mg capsule RxNorm: 495278 1 Capsule(s) PO QID as needed per dr. tylor pereira No Start Date 01/04/2018 Inactive famotidine 20 mg tablet RxNorm: 060453 1 Tablet(s) PO BID prescribed in ER No Start Date 10/13/2017 Inactive hydrocodone 5 mg-alexey taminophen 325 mg tablet RxNorm: 299493 1 Tablet(s) PO Q6 as needed No Start Date 06/05/2014 Inactive Proscar 5 mg Tab RxNorm: 949628 1 Tablet(s) PO daily No Start Date 09/01/2015 Inactive Plavix 75 mg tablet RxNorm: 537807 1 Tablet(s) PO daily No Start Date 07/03/2012 Inactive albuterol sulfate 2. 5 mg/0.5 mL solution for nebulization RxNorm: 643024 1 inhale INH Q4H as needed No Start Date 05/20/2014 Inactive metoclopramide 5 mg tablet RxNorm: 006326 1 Tablet(s) PO AC & H S prescribed in ER No Start Date 01/04/2018 Inactive amlodipine 5 mg Tab RxNorm: 622928 1 Tablet(s) PO daily No Start Date 03/07/2011 Inactive Namenda 5 mg Tab RxNorm: 960342 1 Tablet(s) PO daily No Start Date 06/23/2011 Inactive Zyrtec 10 mg tablet RxNorm: 7878368 1 Tablet(s) PO daily No Start Date 01/04/2018 Inactive Allergy Relief (ceti rizine) oral RxNorm: 069395 oral No S tart Date 12/19/2016 Inactive fluocinonide 0.05 % Ointment RxNorm: 563237 1 TOP BID PRN No Start Date 12/24/2013 Inactive amlodipine 5 mg tablet RxNorm: 039008 1 Tablet(s) PO daily No Start Date 09/01/2014 Inactive lisinopril Oral RxNorm: Oral No Start Date 12/08/2011 Inactive simvastatin 20 mg Tab RxNorm: 104228 1 Tablet(s) PO daily No Start Date 06/06/2014 Inactive Bentyl 20 mg Tab RxNorm: 684943 1 Tablet(s) PO Q6 PRN No Start Date 06/23/[address] Quintero Bentyl 10 mg Cap RxNorm: 710215 1 Capsule(s) PO BID No Start Date 06/22/2011 Inactive fluticasone 50 mcg/a ctuation nasal spray,suspension RxNorm: 4360013 1 [place] NASAL BID No Start Date 02/07/2018 Inactive Plavix 75 mg Tab RxNorm: 106030 1 Tablet(s) PO every other day No Start Date 08/24/2011 Inactive lorazepam 0.5 mg tablet RxNorm: 959571 1/2 Tablet(s) PO Q8 PRN No Start Date 02/01/2012 Inactive lisinopril 10 mg tablet RxNorm: 933784 1 Tablet(s) PO daily No Start Date 12/19/2011 Inactive Trulance 3 mg tablet RxNorm: 1956227 1 Tablet(s) PO QAM No Start Date 01/18/2018 Inactive Flomax 0.4 mg 24 hr Cap RxNorm: 295847 1 Capsule(s) PO daily No Start Date 05/28/2014 Inactive Aricept 5 mg Tab RxNorm: 992778 1 Tablet(s) PO daily No Start Date 07/13/2011 Inactive Vitamin D 1,000 unit Tab RxNorm: 073675 1 Tablet(s) PO daily No Start Date 01/04/2018 Inactive Levsin 0.125 mg tablet RxNorm: 0868169 1 Tablet(s) PO QID as needed FOR ABD REJI N No Start Date 11/04/2014 Inactive mirtazapine 7.5 mg t ablet RxNorm: 626244 1/2 Tablet(s) PO daily No Start Date 08/29/2013 Inactive Senior Vitamin Tab RxNorm: 1 Tablet(s) PO daily No Start Date 01/04/2018 Inactive Mobic 15 mg Tab RxNorm: 136392 1 Tablet(s) PO daily No Start Date 07/13/2011 Inactive Medication Administered Medication Codes Instruc tions Start Date Status Kenalog 40 mg/mL suspension for injection RxNorm: 5837724 Milliliter 11/25/2016 No longer Active Influenza Virus Vaccine 0.5 mL RxNorm: 02/06/2013 No longer Active ZOSTAVAX 19,400 unit Sub-Q Soln RxNo rm: [id number] 02/25/2011 No longer A ctive Pneumovax 23 25 mcg/0.5 mL Injection RxNorm: 432263 Milliliter 02/16/2011 No longer Active Influenza Virus [...] Ord15 CALCIUM 10.1 mg/dL 06/08/2018 Comp Metabolic Tuy975 NA 143 mEq/L 04/10/2018 Comp Metabolic Ptp883 K 3.8 mEq/L 04/10/2018 Comp Metabolic Ngo069 CL 105 mEq/L 04/10/2018 Comp Metabolic Lqk999 CO2 30.0 mEq/L 04/10/2018 Comp Metabolic Vmu658 AN ION GAP 12 04/10/2018 Comp Metabolic Jlg454 GL UCOSE 95 mg/dL 04/10/2018 Comp Metabolic Vgg089 Cr eat 1.2 mg/dL 04/10/2018 Comp Metabolic Qlx017 eG FR 60 ml/min/1.73m2 04/10 Comp Metabolic Btg020 BUN 22 mg/dL 04/10/2018 Comp Metabolic Szc080 B/ C Ratio 18.2 Ratio 04/10/2018 Comp Metabolic Lky183 CA LCIUM 10.3 mg/dL 04/10/2018 Comp Metabolic Uko446 AL K PHOS 113 U/L 04/10/2018 Comp Metabolic Prr368 T(SGOT) 30 U/L 04/10/2018 Comp Metabolic Pfd410 AL T(SGPT) 19 U/L 04/10/2018 Comp Metabolic Efx679 BI LI T 0.4 mg/dL 04/10/2018 Comp Metabolic Iam133 AL BUMIN 4.2 g/dL 04/10/2018 Comp Metabolic Rcw334 TP RO 6.5 g/dL 04/10/2018 Comp Metabolic Eur125 GL OB 2.3 g/dL 04/10/2018 Comp Metabolic Lvu652 A/ G Ratio 1.8 Ratio 04/10/2018 Comp Metabolic Mqk461 Os mo 288 mOsmo 04/10/2018 Lipid Ord30 CHOL 133 mg/dL 04/10/2018 Lipid Ord30 HDL 49.0 mg/dl 04/10/2018 Lipid Ord30 TRIG 68 mg/dL 04/10/2018 Lipid Ord30 LDL 70 mg/dL 04/10/2018 Lipid Ord30 C/HDL 2.7 Ratio 04/10/2018 C RAP A SC [id number] Strep A Negative 01/13/2018 Comp Metabolic Ofx988 NA 134 mEq/L 10/07/2017 Comp Metabolic Tsf986 K 4.5 mEq/L 10/07/2017 Comp Metabolic Zws455 CL 99 mEq/L 10/07/2017 Comp Metabolic Ttj246 CO2 31.0 mEq/L 10/07/2017 Comp Metabolic Rbp724 AN ION GAP 9 10/07/2017 Comp Metabolic Bkw434 GL UCOSE 82 mg/dL 10/07/2017 Comp Metabolic Fyn202 Cr eat 1.0 mg/dL 10/07/2017 Comp Metabolic Dff336 eG FR 77 ml/min/1.73m2 10/07 Comp Metabolic Xuu550 BUN 16 mg/dL 10/07/2017 Comp Metabolic Kqy870 B/ C Ratio 16.3 Ratio 10/07/2017 Comp Metabolic Ymc310 CA LCIUM 9.6 mg/dL 10/07/2017 Comp Metabolic Vue076 AL K PHOS 72 U/L 10/07/2017 Comp Metabolic Nfo592 T(SGOT) 21 U/L 10/07/2017 Comp Metabolic Rah888 AL T(SGPT) 14 U/L 10/07/2017 Comp Metabolic Hsj969 BI LI T 0.4 mg/dL 10/07/2017 Comp Metabolic Hbg074 AL BUMIN 4.0 g/dL 10/07/2017 Comp Metabolic Vwe736 TP RO 5.7 g/dL 10/07/2017 Comp Metabolic Zmi850 GL OB 1.7 g/dL 10/07/2017 Comp Metabolic Zgs273 A/ G Ratio 2.4 Ratio 10/07/2017 Comp Metabolic Wzk363 Os mo 269 mOsmo 10/07/2017 Lipid Ord30 CHOL 135 mg/dL 10/07/2017 Lipid Ord30 HDL 69.0 mg/dl 10/07/2017 Lipid Ord30 TRIG 52 mg/dL 10/07/2017 Lipid Ord30 LDL 56 mg/dL 10/07/2017 Lipid Ord30 C/HDL 2.0 Ratio 10/07/2017 %Hba1C Ggd246 % HbA1c 02098-7 5.5 % 09/12/2017 %Hba1C Xir810 Gluc Ave 111 mg/dL 09/12/2017 B12 Mix014 B12 816.00 pg/ml 09/10/2017 Test(s) Not Perfromed Test(s) Not Performed Test(s) Not Performed. 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 018 Lipid Ord30 CHOL 134 mg/dL 04/11/2017 Lipid Ord30 HDL 63.0 mg/dl 04/11/2017 Lipid Ord30 TRIG 45 mg/dL 04/11/2017 Lipid Ord30 LDL 62 mg/dL 04/11/2017 Lipid Ord30 C/HDL 2.1 Ratio 04/11/2017 Tsh Ord6 hTSH II 2.07 uIU/mL 04/11/2017 Body Fluid Crystals Source RIGHT ELBOW 6 Body Fluid Crystals CRYSTALS, BODY FLUID 02/18/2016 Uric Acid Body Fluid 320955 URIC ACID-FLUID 4.3 mg/dL 02/18/2016 Metabolic Ord15 [...] Ord15 CALCIUM 9.1 mg/dL 02/05/2016 Comp Metabolic Jde127 NA 129 mEq/L 10/08/2015 Comp Metabolic Itj659 K 4.7 mEq/L 10/08/2015 Comp Metabolic Wwv404 CL 98 mEq/L 10/08/2015 Comp Metabolic Rkb747 CO2 28.0 mEq/L 10/08/2015 Comp Metabolic Gfn882 AN ION GAP 8 10/08/2015 Comp Metabolic Snx775 GL UCOSE 84 mg/dL 10/08/2015 Comp Metabolic Xyb563 Cr eat 1.3 mg/dL 10/08/2015 Comp Metabolic Iao908 eG FR 56 ml/min/1.73m2 10/07 Comp Metabolic Osv552 BUN 23 mg/dL 10/08/2015 Comp Metabolic Zlw083 B/ C Ratio 17.8 Ratio 10/08/2015 Comp Metabolic Voh292 CA LCIUM 9.3 mg/dL 10/08/2015 Comp Metabolic Fqg047 AL K PHOS 68 U/L 10/08/2015 Comp Metabolic Rfk103 T(SGOT) 24 U/L 10/08/2015 Comp Metabolic Vbx289 AL T(SGPT) 15 U/L 10/08/2015 Comp Metabolic Cfr830 BI LI T 0.5 mg/dL 10/08/2015 Comp Metabolic Ohs726 AL BUMIN 4.0 g/dL 10/08/2015 Comp Metabolic Bcj904 TP RO 5.9 g/dL 10/08/2015 Comp Metabolic Oao337 GL OB 1.9 g/dL 10/08/2015 Comp Metabolic Lpg612 A/ G Ratio 2.1 Ratio 10/08/2015 Comp Metabolic Udi452 Os mo 262 mOsmo 10/08/2015 Lipid Ord30 [...] Ord30 C/HDL 2.3 Ratio 05/07/2015 Comp Metabolic Ohr981 NA 132 mEq/L 05/07/2015 Comp Metabolic Bbv828 K 4.4 mEq/L 05/07/2015 Comp Metabolic Qnf935 CL 97 mEq/L 05/07/2015 Comp Metabolic Iaw684 CO2 30.0 mEq/L 05/07/2015 Comp Metabolic Rlo932 AN ION GAP 9 05/07/2015 Comp Metabolic Fcc240 GL UCOSE 78 mg/dL 05/07/2015 Comp Metabolic Pnm823 Cr eat 1.2 mg/dL 05/07/2015 Comp Metabolic Tps470 eG FR 60 ml/min/1.73m2 05/07 Comp Metabolic Xer503 BUN 25 mg/dL 05/07/2015 Comp Metabolic Pef467 B/ C Ratio 20.3 Ratio 05/07/2015 Comp Metabolic Vrn527 CA LCIUM 9.6 mg/dL 05/07/2015 Comp Metabolic Hep837 AL K PHOS 70 U/L 05/07/2015 Comp Metabolic Ukp915 T(SGOT) 27 U/L 05/07/2015 Comp Metabolic Htn824 AL T(SGPT) 20 U/L 05/07/2015 Comp Metabolic Thc265 BI LI T 0.4 mg/dL 05/07/2015 Comp Metabolic Xty603 AL BUMIN 4.0 g/dL 05/07/2015 Comp Metabolic Qsx336 TP RO 5.8 g/dL 05/07/2015 Comp Metabolic Oor724 GL OB 1.8 g/dL 05/07/2015 Comp Metabolic Osi258 A/ G Ratio 2.3 Ratio 05/07/2015 Comp Metabolic Jsv486 Os mo 268 mOsmo 05/07/2015 Cbc With [...] hTSH II 4.07 uIU/mL 05/07/2015 Comp Metabolic Ony858 NA 134 mEq/L 12/10/2014 Comp Metabolic Tlz335 K 4.8 mEq/L 12/10/2014 Comp Metabolic Znp308 CL 101 mEq/L 12/10/2014 Comp Metabolic Hum122 CO2 30.0 mEq/L 12/10/2014 Comp Metabolic Hpk471 AN ION GAP 8 12/10/2014 Comp Metabolic Nbd018 GL UCOSE 85 mg/dL 12/10/2014 Comp Metabolic Yno589 Cr eat 1.2 mg/dL 12/10/2014 Comp Metabolic Gdq577 eG FR 65 ml/min/1.73m2 12/10 Comp Metabolic Okc708 BUN 25 mg/dL 12/10/2014 Comp Metabolic Yee677 B/ C Ratio 21.7 Ratio 12/10/2014 Comp Metabolic Axq746 CA LCIUM 9.5 mg/dL 12/10/2014 Comp Metabolic Tdw691 AL K PHOS 76 U/L 12/10/2014 Comp Metabolic Ick597 T(SGOT) 27 U/L 12/10/2014 Comp Metabolic Crj657 AL T(SGPT) 18 U/L 12/10/2014 Comp Metabolic Eld356 BI LI T 0.5 mg/dL 12/10/2014 Comp Metabolic Qqx621 AL BUMIN 4.1 g/dL 12/10/2014 Comp Metabolic Otp406 TP RO 5.7 g/dL 12/10/2014 Comp Metabolic Nxh503 GL OB 1.6 g/dL 12/10/2014 Comp Metabolic Vwk834 A/ G Ratio 2.6 Ratio 12/10/2014 Comp Metabolic Aay282 Os mo 272 mOsmo 12/10/2014 B12 Dhw406 B12 1011.00 pg/ml 12/10/2014 Lipid Ord30 CHOL [...] Differential Ord2 RDW 14.3 % 12/10/2014 CBC 7176468 WBC 4.1 10e9/L 02/19/2013 CBC 6251321 RBC 4.39 10e12/L 02/19/2013 CBC 1009404 HGB 14.1 g/dL 02/19/2013 CBC 6868503 HCT DET 41.0 % 02/19/2013 CBC 7864569 MCV 93.4 fL 02/19/2013 CBC 0363759 MCH 32.1 pg 02/19/2013 CBC 2960591 MCHC 34.4 g/dL 02/19/2013 CBC 0565031 PLT 151 10e9/L 02/19/2013 CBC 1281008 MPV 11.8 fL 02/19/2013 CBC 3576636 YOVANNY % 63.2 % 02/19/2013 CBC 1084562 LY % 22.9 % 02/19/2013 CBC 7127622 MON % 11.5 % 02/19/2013 CBC 0769284 EOS % 2.2 % 02/19/2013 CBC 9800059 BASO % 0.2 % 02/19/2013 CBC 5003482 RDW 13.8 % 02/19/2013 CBC 2138994 ABS YOVANNY 2.59 10e9/L 02/19/2013 CBC 3380876 ABS LYMPH 0.94 10e9/L 02/19/2013 CBC 6254632 ABS MONO 0.47 10e9/L 02/19/2013 CBC 7825674 ABS EOS 0.09 10e9/L 02/19/2013 CBC 3481283 ABS BASO 0.01 10e9/L 02/19/2013 CBC 5154011 RDW-SD 46.0 fL 02/19/2013 TSH 5411989 TSH 2.094 uIU/ML 02/19/2013 FREE T4 4452754 FREE T4 1.18 NG/DL 02/19/2013 GFR CALC 4981093 GFR AA >60 ML/MIN 02/19/2013 GFR CALC 5997580 GFR NON -AA >60 ML/MIN 02/19/2013 CHEM 14 1347679 AST 30 U/L 02/19/2013 CHEM 14 5549485 ALT 19 IU/L 02/19/2013 CHEM 14 8508193 BUN 21 MG/DL 02/19/2013 CHEM 14 0032146 ALBUMIN 4.4 GM/DL 02/19/2013 CHEM 14 6776536 CHLORIDE 94 MMOL/L 02/19/2013 CHEM 14 8589072 BILI TOT 0.5 MG/DL 02/19/2013 CHEM 14 9125261 ALK PHOS 75 U/L 02/19/2013 CHEM 14 0499950 SODIUM 133 MMOL/L 02/19/2013 CHEM 14 7529750 CREATINI NE 1.07 MG/DL 02/19/2013 CHEM 14 0379157 CALCIUM 9.6 MG/DL 02/19/2013 CHEM 14 6287439 POTASSIUM 4.6 MMOL/L 02/19/2013 CHEM 14 0189901 PROT TOT 6.1 GM/DL 02/19/2013 CHEM 14 9295426 GLUCOSE 94 MG/DL 02/19/2013 CHEM 14 1603301 BICARB 31 MMOL/L 02/19/2013 CHEM 14 5983374 ANION GAP 8 MEQ/L 02/19/2013 UA 69204 Specific [place] 1.015 DateTime(Free Text in Aprima ) UA 85135 PH 6 DateTime(Free Text in Apr ) UA 40422 GLUCOSE neg DateTime(Free Text in Aprima ) UA 51755 Protein neg DateTime(Free Text in Aprima ) UA 77548 Blood neg DateTime(Free Text in Aprima ) UA 96627 Bilirubin neg DateTime(Free Text in Aprima ) UA 28939 Ketones neg DateTime(Free Text in Aprima ) UA 77739 Urobilinogen neg DateTime(Free Text in Aprima ) UA 83892 Nitrite neg DateTime(Free Text in Apr ) UA 90207 Leukocytes neg DateTime(Free Text in ) Review [...] No alteration of consciousness 12/04/2014 Psychiatric anxiety /01/2015 Constitutional No recent illness 09/24/2014 Constitutional No [...] distress 01/19/2018 None Full Exam - General 1995 Constitutional general appearance Overall: well nourished 01/19/2018 [...] time 01/27/2011 None Full Exam - General [facility] Psychiatric orientation/consciousness Overall: oriented to person, place [...] VACC PRSV FREE I NC ANTIG CPT-4: 11190 02/08/2018 URINALYSIS NONAUTO W /O SCOPE CPT-4: 43486 09/26/2017 ADMIN INFLUENZA VIRU S VAC CPT-4: G0008 01/25/2017 FLU VACC PRSV FREE I NC ANTIG CPT-4: 66199 01/25/2017 THER/PROPH/DIAG INJ SC/IM CPT-4: 39765 11/25/2016 TRIAMCINOLONE ACET I [place] NOS CPT-4: J3301 11/25/2016 DRAIN/INJECT JOINT/B URSA CPT-4: 76387 02/17/2016 IMMUNIZATION ADMIN CPT- 4: 50503 05/06/2015 PNEUMOCOCCAL VACC 13 TIFFANIE IM Formatting Model/CDA Sections, Assigned to/Celia Minaya SNOMED CT: [id number] CPT-4: 93187Awtglyw 05/06/2015 ADMIN INFLUENZA VIRU S VAC CPT-4: G0008 02/19/2015 FLU VACC 4 TIFFANIE 3 YRS PLUS IM Formatting Model/CDA Sections, Assigned to SNOMED CT: [id number] CPT-4: 46748Ngmqkcs 02/19/2015 URINALYSIS NONAUTO W /O SCOPE CPT-4: 91924 05/23/2014 ADMIN INFLUENZA VIRU S VAC CPT-4: G0008 03/26/2014 FLU VAC NO PRSV 4 VA L 3 YRS+ Assigned to/Celia Minaya CPT-4: 95081Rspgbii 03/26/2014 PRESCRIP TRANSMIT A ERX SY CPT-4: G8553 04/04/2013 ROUTINE VENIPUNCTURE CPT-4: 73289 02/19/2013 ADMIN INFLUENZA VIRU S VAC CPT-4: G0008 02/06/2013 FLULAVAL VACC, 3 YRS & >, IM CPT-4: Q2036 02/06/2013 75841 EST. PATIENT, LEVEL IV CPT-4: 24471 06/19/2012 PRESCRIP TRANSMIT A ERX SY CPT-4: G8553 06/19/2012 PRESCRIP TRANSMIT A ERX SY CPT-4: G8553 03/20/2012 PRESCRIP TRANSMIT A ERX SY CPT-4: G8553 06/23/2011 IMMUNIZATION ADMIN CPT- 4: 76854 02/25/2011 ZOSTER VACC SC (No lloyd angelo, patient supplied vaccine) CPT-4: 74429SA 02/25/2011 ADMIN PNEUMOCOCCAL V ACCINE SNOMED CT: 02818109 CPT-4: G0009 02/16/2011 Pneumococcal Polysac charide Vaccine, 23-Valent, Ad CPT-4: 37890 02/16/2011 ADMIN INFLUENZA VIRU S VAC CPT-4: G0008 02/09/2011 FLULAVAL VACC, 3 YRS & >, IM CPT-4: Q2036 02/09/2011 PRESCRIP TRANSMIT A ERX SY CPT-4: G8553 02/01/2011 URINALYSIS NONAUTO W /O SCOPE CPT-4: 47677 01/27/2011 Vital Signs Date Vital 05/18/2018 Blood Pressure 1: 142/64 Code: 8480-6 BMI: 19.9 Code: 35191-7 Heart Rate 1: 52 bpm Height: 5'9" SpO2: 98% Weight: 135 lbs 04/13/2018 Blood Pressure 1: 128/58 Code: 8480-6 BMI: 21.0 Code: 87427-4 Heart Rate 1: 83 bpm Height: 5'9" SpO2: 94% Weight: 142 lbs 02/08/2018 Blood Pressure 1: 136/76 Code: 8480-6 BMI: 19.9 Code: 24449-0 Heart Rate 1: 78 bpm Height: 5'9" SpO2: 99% Weight: 135 lbs 01/19/2018 Blood Pressure 1: 114/78 Code: 8480-6 BMI: 19.9 Code: 82011-2 Heart Rate 1: 80 bpm Height: 5'9" SpO2: 98% Weight: 135 lbs 01/12/2018 Blood Pressure 1: 130/78 Code: 8480-6 BMI: 19.8 Code: 46349-4 Heart Rate 1: 85 bpm Height: 5'9" SpO2: 97% Weight: 134 lbs 01/05/2018 Blood Pressure 1: 122/70 Code: 8480-6 BMI: 19.6 Code: 15280-6 Heart Rate 1: 87 bpm Height: 5'9" SpO2: 96% Weight: 133 lbs 11/14/2017 Blood Pressure 1: 130/70 Code: 8480-6 BMI: 19.5 Code: 36812-3 Heart Rate 1: 75 bpm Height: 5'9" SpO2: 98% Weight: 132 lbs 2017 Blood Pressure 1: 116/70 Code: 8480-6 BMI: 19.5 Code: 59743-9 Heart Rate 1: 55 bpm Height: 5'9" SpO2: 95% Weight: 132 lbs 10/13/2017 Blood Pressure 1: 130/70 Code: 8480-6 BMI: 19.3 Code: 00273-6 Heart Rate 1: 67 bpm Height: 5'9" SpO2: 98% Weight: 131 lbs 09/26/2017 Blood Pressure 1: 126/70 Code: 8480-6 BMI: 19.1 Code: 46274-6 Heart Rate 1: 66 bpm Height: 5'9" SpO2: 100% Weight: 129 lbs 8 oz 09/12/2017 Blood Pressure 1: 120/70 Code: 8480-6 BMI: 19.5 Code: 64186-3 Heart Rate 1: 83 bpm Height: 5'9" SpO2: 99% Weight: 132 lbs 09/09/2017 Blood Pressure 1: 126/70 Code: 8480-6 BMI: 19.3 Code: 08900-6 Heart Rate 1: 80 bpm Height: 5'9" SpO2: 98% Weight: 131 lbs 08/17/2017 Blood Pressure 1: 130/74 Code: 8480-6 BMI: 19.6 Code: 28347-3 Heart Rate 1: 72 bpm Height: 5'9" SpO2: 98% Weight: 133 lbs 07/20/2017 Blood Pressure 1: 124/62 Code: 8480-6 BMI: 19.8 Code: 28905-7 Heart Rate 1: 65 bpm Height: 5'9" SpO2: 96% Weight: 134 lbs 07/01/2017 Blood Pressure 1: 134/64 Code: 8480-6 BMI: 21.0 Code: 50084-5 Height: 5'9" Weight: 142 lbs 06/21/2017 Blood Pressure 1: 142/80 Code: 8480-6 BMI: 21.0 Code: 73991-8 Heart Rate 1: 63 bpm Height: 5'9" SpO2: 98% Weight: 142 lbs 03/21/2017 Blood Pressure 1: 128/66 Code: 8480-6 BMI: 20.8 Code: 86550-6 Heart Rate 1: 61 bpm Height: 5'9" SpO2: 98% Weight: 141 lbs 03/08/2017 Blood Pressure 1: 134/68 Code: 8480-6 BMI: 20.4 Code: 23640-7 Heart Rate 1: 56 bpm Height: 5'9" SpO2: 99% Weight: 138 lbs 01/25/2017 Blood Pressure 1: 98/62 Code: 8480-6 BMI: 20.6 Code: 09256-8 Heart Rate 1: 71 bpm Height: 5'9" SpO2: 97% Weight: 139 lbs 8 oz 12/20/2016 Blood Pressure 1: 120/68 Code: 8480-6 BMI: 20.4 Code: 73024-0 Heart Rate 1: 70 bpm Height: 5'9" [...] 1: 120/60 Code: 8480-6 BMI: 20.7 Code: 93841-1 Heart Rate 1: 74 bpm Height: 5'9" SpO2: 95% Weight: 140 lbs 08/23/2016 Blood Pressure 1: 118/68 Code: 8480-6 BMI: 20.8 Code: 42746-3 Heart Rate 1: 54 bpm Height: 5'9" SpO2: 97% Weight: 141 lbs 04/26/2016 Blood Pressure 1: 108/64 Code: 8480-6 BMI: 21.0 Code: 83469-4 Heart Rate 1: 62 bpm Height: 5'9" SpO2: 95% Weight: 142 lbs 02/17/2016 Blood Pressure 1: 138/80 Code: 8480-6 BMI: 20.2 Code: 33038-8 Heart Rate 1: 76 bpm Height: 5'9" SpO2: 97% Weight: 137 lbs 02/09/2016 Blood Pressure 1: 140/76 Code: 8480-6 BMI: 20.2 Code: 07337-0 Heart Rate 1: 72 bpm Height: 5'9" SpO2: 96% Weight: 137 lbs 02/03/2016 Blood Pressure 1: 136/80 Code: 8480-6 BMI: 20.7 Code: 31675-4 Heart Rate 1: 86 bpm Height: 5'9" SpO2: 96% Weight: 140 lbs 01/26/2016 Blood Pressure 1: 144/78 Code: 8480-6 BMI: 20.7 Code: 46281-1 Heart Rate 1: 73 bpm Height: 5'9" SpO2: 97% Temperature: 37.0 (C ) / 98.6 (F) Weight: 140 lbs 01/21/2016 Blood Pressure 1: 116/62 Code: 8480-6 BMI: 20.4 Code: 53212-8 Heart Rate 1: 66 bpm Height: 5'9" SpO2: 97% Weight: 138 lbs 12/29/2015 Blood Pressure 1: 130/74 Code: 8480-6 BMI: 20.4 Code: 64587-3 Heart Rate 1: 51 bpm Height: 5'9" SpO2: 98% Weight: 138 lbs 09/02/2015 Blood Pressure 1: 126/60 Code: 8480-6 BMI: 22.3 Code: 66914-3 Heart Rate 1: 55 bpm Height: 5'9" SpO2: 96% Weight: 151 lbs 05/06/2015 Blood Pressure 1: 132/72 Code: 8480-6 BMI: 21.0 Code: 61526-0 Heart Rate 1: 63 bpm Height: 5'9" SpO2: 97% Weight: 142 lbs 03/05/2015 Blood Pressure 1: 130/68 Code: 8480-6 BMI: 21.0 Code: 38430-9 Heart Rate 1: 61 bpm Height: 5'9" SpO2: 96% Weight: 142 lbs 12/04/2014 Blood Pressure 1: 122/64 Code: 8480-6 BMI: 21.3 Code: 30837-7 Heart Rate 1: 72 bpm Height: 5'9" Weight: 144 lbs 09/24/2014 Blood Pressure 1: 142/80 Code: 8480-6 BMI: 20.4 Code: 74852-3 Heart Rate 1: 80 bpm Height: 5'9" Weight: 138 lbs 09/09/2014 Blood Pressure 1: 122/74 Code: 8480-6 BMI: 20.5 Code: 71604-8 Heart Rate 1: 64 bpm Height: 5'9" Weight: 139 lbs 07/26/2014 Blood Pressure 1: 136/82 Code: 8480-6 BMI: 20.4 Code: 59440-5 Heart Rate 1: 87 bpm Height: 5'9" SpO2: 92% Weight: 138 lbs 07/10/2014 Blood Pressure 1: 130/74 Code: 8480-6 BMI: 21.1 Code: 10668-9 Heart Rate 1: 64 bpm Height: 5'9" Weight: 143 lbs 06/06/2014 Blood Pressure 1: 142/88 Code: 8480-6 BMI: 20.4 Code: 61845-4 Heart Rate 1: 68 bpm Height: 5'9" Weight: 138 lbs 05/29/2014 Blood Pressure 1: 108/72 Code: 8480-6 BMI: 20.5 Code: 41626-0 Heart Rate 1: 60 bpm Height: 5'9" Weight: 139 lbs 05/20/2014 Blood Pressure 1: 140/72 Code: 8480-6 BMI: 21.6 Code: 72639-3 Heart Rate 1: 60 bpm Height: 5'9" SpO2: 98% Temperature: 36.2 (C ) / 97.2 (F) Weight: 146 lbs 03/25/2014 Blood Pressure 1: 128/60 Code: 8480-6 BMI: 21.4 Code: 29378-1 Heart Rate 1: 62 bpm Height: 5'9" Weight: 145 lbs 02/08/2014 Blood Pressure 1: 136/82 Code: 8480-6 BMI: 21.3 Code: 81500-9 Heart Rate 1: 68 bpm Height: 5'9" Weight: 144 lbs 12/24/2013 Blood Pressure 1: 122/76 Code: 8480-6 BMI: 21.6 Code: 68112-3 Heart Rate 1: 58 bpm Height: 5'9" Weight: 146 lbs 11/20/2013 Blood Pressure 1: 112/62 Code: 8480-6 BMI: 20.7 Code: 46561-3 Heart Rate 1: 56 bpm Height: 5'9" Weight: 140 lbs 10/30/2013 Blood Pressure 1: 130/68 Code: 8480-6 BMI: 20.1 Code: 33442-6 Heart Rate 1: 68 bpm Height: 5'9" SpO2: 96% Weight: 136 lbs 10/08/2013 Blood Pressure 1: 128/72 Code: 8480-6 BMI: 20.8 Code: 23134-6 Heart Rate 1: 60 bpm Height: 5'9" Temperature: 36.6 (C ) / 97.8 (F) Weight: 141 lbs 06/18/2013 Blood Pressure 1: 124/78 Code: 8480-6 BMI: 20.8 Code: 29725-3 Heart Rate 1: 64 bpm Height: 5'9" Weight: 141 lbs 04/04/2013 Blood Pressure 1: 138/60 Code: 8480-6 BMI: 20.8 Code: 60231-6 Heart Rate 1: 56 bpm Height: 5'9" Weight: 141 lbs 02/19/2013 Blood Pressure 1: 152/74 Code: 8480-6 BMI: 21.0 Code: 69406-2 Heart Rate 1: 60 bpm Height: 5'9" Weight: 142 lbs 10/16/2012 Blood Pressure 1: 122/70 Code: 8480-6 BMI: 20.8 Code: 60302-6 Heart Rate 1: 64 bpm Height: 5'9" Weight: 141 lbs 06/19/2012 Blood Pressure 1: 120/72 Code: 8480-6 BMI: 21.1 Code: 20914-9 Heart Rate 1: 60 bpm Height: 5'9" Weight: 143 lbs 03/20/2012 Blood Pressure 1: 114/76 Code: 8480-6 Heart Rate 1: 60 bpm Respiratory Rate: 16 bpm Weight: 143 lbs 01/24/2012 Blood Pressure 1: 134/70 Code: 8480-6 Heart Rate 1: 64 bpm Weight: 143 lbs 12/20/2011 Blood Pressure 1: 98/72 Code: 8480-6 BMI: 21.1 Code: 71050-2 Heart Rate 1: 60 bpm Height: 5'9" Respiratory Rate: 16 bpm Weight: 143 lbs 12/09/2011 Blood Pressure 1: 110/60 Code: 8480-6 Heart Rate 1: 66 bpm SpO2: 98% Weight: 141 lbs 08/25/2011 Blood Pressure 1: 112/70 Code: 8480-6 BMI: 20.8 Code: 20705-7 Heart Rate 1: 54 bpm Height: 5'9" Respiratory Rate: 16 bpm Weight: 141 lbs 06/23/2011 Blood Pressure 1: 126/64 Code: 8480-6 Heart Rate 1: 60 bpm Respiratory Rate: 16 bpm Weight: 142 lbs 04/19/2011 Blood Pressure 1: 124/64 Code: 8480-6 BMI: 21.1 Code: 94312-9 Heart Rate 1: 64 bpm Height: 5'9" Respiratory Rate: 16 bpm Weight: 143 lbs 03/23/2011 Blood Pressure 1: 137/71 Code: 8480-6 Heart Rate 1: 57 bpm 03/08/2011 Blood Pressure 1: 154/70 Code: 8480-6 BMI: 20.8 Code: 93182-5 Heart Rate 1: 60 bpm Height: 5'9" Respiratory Rate: 16 bpm Weight: 141 lbs 03/01/2011 Blood Pressure 1: 178/80 Code: 8480-6 Blood Pressure 2: 168/70 Code: 8480-6 BMI: 24.1 Code: 53063-1 Heart Rate 1: 60 bpm Height: 5'9" Respiratory Rate: 16 bpm Weight: 163 lbs 02/01/2011 Blood Pressure 1: 162/84 Code: 8480-6 Heart Rate 1: 60 bpm Respiratory Rate: 16 bpm Weight: 144 lbs 01/27/2011 Blood Pressure 1: 138/54 Code: 8480-6 BMI: 21.1 Code: 32927-5 Heart Rate 1: 68 bpm Height: 5'9" Respiratory Rate: 16 bpm Weight: 143 lbs 01/26/2011 Blood Pressure 1: 148/86 Code: 8480-6 BMI: 21.3 Code: 59968-8 Heart Rate 1: 74 bpm Height: 5'9" Weight: 144 lbs 01/15/2011 Blood Pressure 1: 136/76 Code: 8480-6 BMI: 20.5 Code: 76735-2 Heart Rate 1: 70 bpm Height: 5'10" Weight: 141 lbs 01/06/2011 Blood Pressure 1: 148/72 Code: 8480-6 BMI: 20.2 Code: 03763-5 Heart Rate 1: 72 bpm Height: 5'10" [...] contacts 05/20/2014 None cough Location in [facility] 03/25/2014 None cough Quality hacking 03/25/2014 None [...] Findings Denies weakness 12/09/2011 None hypertension Quality [facility] 08/25/2011 None hypertension Onset and [...] Encounters Encounter Performer Loca tion Codes Date ([id number]) 51945 EST. 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 P ATIENT, LEVEL III Diagnosis: Essential (primary) hypertension[ICD10: I10] Ale Carlos MD, [facility] [place] CPT-4: 22937 04/13/2018 ([id number]) 30990 EST. P ATIENT, LEVEL IV Diagnosis: Irritable bowel syndrome with constipation[ICD10: K58.1] Diagnosis: Other lesions of oral mucosa[ICD10: K13.79] Diagnosis: Dry mouth, unspecified[ICD10: R68.2] Diagnosis: Encounter for immunization[ICD10: Z23] Diagnosis: Essential (primary) hypertension[ICD10: I10] Ale Carlos MD, [facility] [place] CPT-4: 75998 02/08/2018 ([id number]) 00417 EST. P ATIENT, LEVEL III Diagnosis: Slow transit constipation[ICD10: K59.01] Diagnosis: Dry mouth, unspecified[ICD10: R68.2] Nelly Carlos MD, [facility] CPT-4: 46022 01/19/2018 ([id number]) Miscellaneou s no charge Diagnosis: Acute pharyngitis, unspecified[ICD10: J02.9] Nelly Carlos MD, [facility] CPT-4: 19459 01/13/2018 ([id number]) 53480 EST. P ATIENT, LEVEL III Diagnosis: Candidal stomatitis[ICD10: B37.0] Diagnosis: Cough[ICD10: R05] Nelly Carlos MD, [facility] CPT-4: 23839 01/12/2018 ([id number]) 61757 EST. 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 P ATIENT, LEVEL IV Diagnosis: Irritable bowel syndrome with constipation[ICD10: K58.1] Diagnosis: Malignant neoplasm of prostate[ICD10: C61] Ale Carlos MD, [facility] [place] CPT-4: 50128 11/14/2017 [id number] EST. PATIENT, LEVEL IV Diagnosis: Slow transit constipation[ICD10: K59.01] Diagnosis: Gastro-esophageal reflux disease without esophagitis[ICD10: K21.9] Ruchi Carlos MD, [facility] CPT-4: 71847 2017 ([id number]) 96744 EST. P ATIENT, LEVEL IV Diagnosis: Essential (primary) hypertension[ICD10: I10] Diagnosis: Slow transit constipation[ICD10: K59.01] Diagnosis: Underweight[ICD10: R63.6] Diagnosis: Gastro-esophageal reflux disease without esophagitis[ICD10: K21.9] Ale Carlos MD, [facility] CPT-4: 02558 10/13/2017 ([id number]) 16578 EST. P ATIENT, LEVEL IV Diagnosis: Slow transit constipation[ICD10: K59.01] Diagnosis: Gastroparesis[ICD10: K31.84] Diagnosis: Gastro-esophageal reflux disease without esophagitis[ICD10: K21.9] Diagnosis: Dysuria[ICD10: R30.0] Ale Carlos MD, [facility] CPT-4: 29514 09/26/2017 ([id number]) 63639 EST. P ATIENT, LEVEL IV Diagnosis: Other abnormal glucose[ICD10: R73.09] Diagnosis: Slow transit constipation[ICD10: K59.01] Ale Carlos MD, [facility] [place] CPT-4: 47038 09/12/2017 80545 EST. PATIENT, LEVEL III Diagnosis: Other fatigue[ICD10: R53.83] Ruchi Carlos MD, [facility] CPT-4: 92287 09/09/2017 ([id number]) 81581 EST. P ATIENT, LEVEL IV Diagnosis: Slow transit constipation[ICD10: K59.01] Diagnosis: Irritable bowel syndrome with constipation[ICD10: K58.1] Diagnosis: Essential (primary) hypertension[ICD10: I10] Ale Carlos MD, C CPT-4: 31690 08/17/2017 ([id number]) 04940 EST. P ATIENT, LEVEL III Diagnosis: Slow transit constipation[ICD10: K59.01] Diagnosis: Gastroparesis[ICD10: K31.84] Ale Carlos MD, [facility] CPT-4: 58930 07/20/2017 03460 EST. PATIENT, LEVEL III Diagnosis: Irritable bowel syndrome with constipation[ICD10: K58.1] Ruchi Carlos MD, [facility] CPT-4: 89460 07/01/2017 ([id number]) 19713 EST. P ATIENT, LEVEL IV Diagnosis: Essential (primary) hypertension[ICD10: I10] Diagnosis: Gas pain[ICD10: R14.1] Diagnosis: Generalized anxiety disorder[ICD10: F41.1] Diagnosis: Cervicalgia[ICD10: M54.2] Diagnosis: Pain in thoracic spine[ICD10: M54.6] Diagnosis: Unsteadiness on feet[ICD10: R26.81] Ale Carlos MD, [facility] CPT- 4: 10330 06/21/2017 ([id number]) 51014 EST. P ATIENT, LEVEL III Diagnosis: Essential (primary) hypertension[ICD10: I10] Ale Carlos MD, C CPT-4: 35045 03/21/2017 50759 EST. PATIENT, LEVEL III Diagnosis: Other allergic rhinitis[ICD10: J30.89] Nelly Carlos MD, [facility] CPT-4: 03674 03/08/2017 ([id number]) 40359 EST. P ATIENT, LEVEL III Diagnosis: Encounter for immunization[ICD10: Z23] Diagnosis: Other hypotension[ICD10: I95.89] Ale Carlos MD, [facility] CPT-4: 11956 01/25/2017 ([id number]) 35023 EST. P ATIENT, LEVEL III Diagnosis: Essential (primary) hypertension[ICD10: I10] Diagnosis: Acute recurrent maxillary sinusitis[ICD10: J01.01] Ale Carlos MD, C CPT-4: 20094 12/20/2016 ([id number]) 06515 EST. P ATIENT, LEVEL III Diagnosis: Acute recurrent ethmoidal sinusitis[ICD10: J01.21] Ale Carlos MD, C CPT-4: 04344 12/01/2016 ([id number]) 03812 EST. P ATIENT, LEVEL III Diagnosis: Bronchitis, not specified as acute or chronic[ICD10: J40] Diagnosis: Cough[ICD10: R05] Ale Carlos MD, [facility] CPT-4: 60586 11/25/2016 ([id number]) 79220 EST. P ATIENT, LEVEL III Diagnosis: Cough[ICD10: R05] Diagnosis: Bronchitis, not specified as acute or chronic[ICD10: J40] Diagnosis: Candidal esophagitis[ICD10: B37.81] Ale Carlos MD, [facility] CPT- 4: 03909 11/18/2016 ([id number]) 05230 EST. P ATIENT, LEVEL IV Diagnosis: Essential (primary) hypertension[ICD10: I10] Diagnosis: Mild cognitive impairment, so stated[ICD10: G31.84] Ale Carlos MD, [facility] [place] CPT-4: 38448 08/23/2016 ([id number]) 47023 EST. P ATIENT, LEVEL III Diagnosis: Essential (primary) hypertension[ICD10: I10] Ale Carlos MD, [facility] [place] CPT-4: 74122 04/26/2016 ([id number]) Miscellaneou s no charge Diagnosis: Olecranon bursitis, right elbow[ICD10: M70.21] Nelly Carlos MD, [facility] CPT-4: 56205 02/09/2016 ([id number]) 80835 EST. P ATIENT, LEVEL III Diagnosis: Olecranon bursitis, right elbow[ICD10: M70.21] Nelly Carlos MD, [facility] CPT-4: 45726 02/03/2016 ([id number]) 23929 EST. P ATIENT, LEVEL III Diagnosis: Generalized abdominal tenderness[ICD10: R10.817] Ale Carlos MD, [facility] [place] CPT-4: 00771 01/26/2016 41977 EST. PATIENT, LEVEL IV Diagnosis: Other allergic rhinitis[ICD10: J30.89] Ruchi Carlos MD, [facility] CPT-4: 47859 01/21/2016 ([id number]) 00970 EST. P ATIENT, LEVEL IV Diagnosis: Essential (primary) hypertension[ICD10: I10] Diagnosis: Hypo-osmolality and hyponatremia[ICD10: E87.1] Ale Carlos MD, [facility] [place] CPT-4: 79779 12/29/2015 ([id number]) 47324 EST. P ATIENT, LEVEL IV Diagnosis: Essential (primary) hypertension[ICD10: I10] Diagnosis: Mild cognitive impairment, so stated[ICD10: G31.84] Ale Carlos MD, C CPT-4: 00561 09/02/2015 ([id number]) 24066 EST. P ATIENT, LEVEL IV Diagnosis: Mixed hyperlipidemia[ICD10: E78.2] Diagnosis: Generalized anxiety disorder[ICD10: F41.1] Diagnosis: Mild cognitive impairment, so stated[ICD10: G31.84] Diagnosis: Essential (primary) hypertension[ICD10: I10] Diagnosis: Encounter for immunization[ICD10: Z23] Ale Carlos MD, [facility] CPT-4: 25002 05/06/2015 ([id number]) 12094 EST. 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 P ATIENT, LEVEL IV Diagnosis: ESSENTIAL HYPERTENSION[ICD9: 401.9] Diagnosis: GENERALIZED ANXIETY DISEASE[ICD9: 300.02] Diagnosis: MILD COGNITIVE IMPAIREMT[ICD9: 331.83] Diagnosis: IRRITABLE COLON[ICD9: 564.1] Ale Carlos MD, [facility] CPT-4: 80070 12/04/2014 ([id number]) 22574 EST. P ATIENT, LEVEL IV Diagnosis: Abdominal pain[ICD9: 789.00] Diagnosis: GENERALIZED ANXIETY DISEASE[ICD9: 300.02] Diagnosis: Hyponatremia[ICD9: 276.1] Diagnosis: ESSENTIAL HYPERTENSION[ICD9: 401.9] Nelly Carlos MD, [facility] CPT-4: 69914 09/24/2014 ([id number]) 03995 EST. P ATIENT, LEVEL IV Diagnosis: ESSENTIAL HYPERTENSION[ICD9: 401.9] Diagnosis: Osteoarthritis[ICD9: 715.90] Diagnosis: Mild cognitive impairment with memory loss[ICD9: 331.83] Ale Carlos MD, C CPT-4: 01568 09/09/2014 ([id number]) 95120 EST. P ATIENT, LEVEL III Diagnosis: GENERALIZED ANXIETY DISEASE[ICD9: 300.02] Diagnosis: Depression[ICD9: 311] Ale Carlos MD, [facility] CPT-4: 03932 07/26/2014 ([id number]) 55564 EST. P ATIENT, LEVEL IV Diagnosis: ESSENTIAL HYPERTENSION[ICD9: 401.9] Diagnosis: GENERALIZED ANXIETY DISEASE[ICD9: 300.02] Diagnosis: MILD COGNITIVE IMPAIREMT[ICD9: 331.83] Ale Carlos MD, [facility] CPT-4: 32119 07/10/2014 ([id number]) 26242 EST. P ATIENT, LEVEL IV Diagnosis: Dizziness[ICD9: 780.4] Diagnosis: GENERALIZED ANXIETY DISEASE[ICD9: 300.02] Diagnosis: Depression[ICD9: 311] Diagnosis: ESSENTIAL HYPERTENSION[ICD9: 401.9] Diagnosis: Urinary frequency[ICD9: 788.41] Ale Carlos MD, [facility] CPT-4: 11392 06/06/2014 ([id number]) 07311 EST. P ATIENT, LEVEL IV Diagnosis: ESSENTIAL HYPERTENSION[ICD9: 401.9] Diagnosis: GENERALIZED ANXIETY DISEASE[ICD9: 300.02] Diagnosis: Mild cognitive impairment with memory loss[ICD9: 331.83] Ale Carlos MD [facility] [place] CPT-4: 45150 05/29/2014 ([id number]) 51530 EST. P ATIENT, LEVEL IV Diagnosis: Pneumonia[ICD9: 486] Diagnosis: COUGH[ICD9: 786.2] Diagnosis: Hyponatremia[ICD9: 276.1] Diagnosis: ALLERGIC RHINITIS[ICD9: 477.9] Ale Carlos MD, [facility] CPT-4: 45749 05/20/2014 ([id number]) 49297 EST. P ATIENT, LEVEL III Diagnosis: ESSENTIAL HYPERTENSION[ICD9: 401.9] Diagnosis: Cough[ICD9: 786.2] Ale Carlos MD, [facility] CPT-4: 05206 03/25/2014 ([id number]) 49817 EST. P ATIENT, LEVEL III Diagnosis: COUGH[ICD9: 786.2] Diagnosis: ALLERGIC RHINITIS[ICD9: 477.9] Nelly Carlos MD, [facility] CPT- 4: 00805 02/08/2014 ([id number]) 21309 EST. P ATIENT, LEVEL III Diagnosis: ESSENTIAL HYPERTENSION[ICD9: 401.9] Diagnosis: Nasal congestion[ICD9: 478.19] Ale Carlos MD, [facility] CPT-4: 48102 12/24/2013 ([id number]) 34648 EST. P ATIENT, LEVEL III Diagnosis: Seasonal allergies[ICD9: 477.9] Diagnosis: Nasal congestion[ICD9: 478.19] Diagnosis: ABNORMAL LOSS OF WEIGHT[ICD9: 783.21] Ale Carlos MD, [facility] CPT-4: 46742 11/20/2013 ([id number]) 47456 EST. P ATIENT, LEVEL III Diagnosis: ABNORMAL LOSS OF WEIGHT[ICD9: 783.21] Diagnosis: MALAISE AND FATIGUE[ICD9: 780.79] Diagnosis: Hyponatremia[ICD9: 276.1] Nelly Carlos MD, [facility] CPT- 4: 67913 10/30/2013 ([id number]) 25389 EST. P ATIENT, LEVEL III Diagnosis: Acute maxillary sinusitis[ICD9: 461.0] Diagnosis: COUGH[ICD9: 786.2] Ale Carlos MD, [facility] CPT-4: 19866 10/08/2013 ([id number]) 29470 EST. P ATIENT, LEVEL IV Diagnosis: ESSENTIAL HYPERTENSION[SNOMED: 78184691] Diagnosis: GENERALIZED ANXIETY DISEASE[ICD9: 300.02] Diagnosis: OSTEOARTH NOS-UNSPEC[ICD9: 715.90] Diagnosis: Coronary artery disease[ICD9: 414.00] Ale Carlos MD, [facility] CPT-4: 86259 06/18/2013 ([id number]) 54135 EST. P ATIENT, LEVEL III Diagnosis: ESSENTIAL HYPERTENSION[SNOMED: 09494996] Ale Carlos MD, [facility] [place] CPT-4: 54132 04/04/2013 ([id number]) 62775 EST. P ATIENT, LEVEL IV Diagnosis: ESSENTIAL HYPERTENSION[SNOMED: 80506796] Diagnosis: Leukopenia[ICD9: 288.50] Diagnosis: Encounter for long-term (current) use of other medications[ICD9: V58.69] Ale Carlos MD, [facility] CPT-4: 61876 02/19/2013 ([id number]) 63611 EST. P ATIENT, LEVEL IV Diagnosis: ESSENTIAL HYPERTENSION[SNOMED: 90267872] Diagnosis: MILD COGNITIVE IMPAIREMT[ICD9: 331.83] Ale Carlos MD, [facility] CPT-4: 78575 10/16/2012 ([id number]) 53215 EST. P ATIENT, LEVEL IV Diagnosis: ESSENTIAL HYPERTENSION[SNOMED: 59603178] Diagnosis: GENERALIZED ANXIETY DISEASE[ICD9: 300.02] Diagnosis: IRRITABLE COLON[ICD9: 564.1] Ale Carlos MD, [facility] CPT-4: 17007 03/20/2012 66204 EST. PATIENT, LEVEL IV Diagnosis: ESSENTIAL HYPERTENSION[SNOMED: 41365740] Diagnosis: Osteoarthritis[ICD9: 715.90] Diagnosis: HYPERLIPIDEMIA[ICD9: 272.4] Ale Carlos MD, [facility] CPT-4: 93457 01/24/2012 47965 EST. PATIENT, LEVEL IV Diagnosis: ESSENTIAL HYPERTENSION[SNOMED: 82256922] Diagnosis: BPH W URINARY OBS/LUTS[ICD9: 600.01] Ale Carlos MD, [facility] CPT-4: 52460 12/20/2011 ([id number]) 23793 EST. P ATIENT, LEVEL III Diagnosis: Lump in the groin[ICD9: 789.30] Ale Carlos MD, [facility] CPT-4: 58654 12/09/2011 ([id number]) 31455 EST. P ATIENT, LEVEL IV Diagnosis: ESSENTIAL HYPERTENSION[SNOMED: 19592632] Diagnosis: Mild cognitive impairment[ICD9: 331.83] Ale Carlos MD, [facility] CPT-4: 42266 08/25/2011 ([id number]) 32992 EST. P ATIENT, LEVEL IV Diagnosis: ESSENTIAL HYPERTENSION[SNOMED: 83222723] Diagnosis: GENERALIZED ANXIETY DISEASE[ICD9: 300.02] Diagnosis: MILD COGNITIVE IMPAIREMT[ICD9: 331.83] Diagnosis: IRRITABLE COLON[ICD9: 564.1] Ale Carlos MD, [facility] CPT-4: 74948 06/23/2011 ([id number]) 62970 EST. 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 PATIENT, LEVEL I Diagnosis: ESSENTIAL HYPERTENSION[SNOMED: 01836031] Ale Carlos MD, [facility] [place] CPT-4: 16306 03/23/2011 14095 EST. PATIENT, LEVEL III Diagnosis: ESSENTIAL HYPERTENSION[SNOMED: 19846622] Diagnosis: Laceration of finger, index[ICD9: 883.0] Ale Carlos MD, [facility] CPT-4: 43603 03/08/2011 31211 EST. PATIENT, LEVEL III Diagnosis: ESSENTIAL HYPERTENSION[SNOMED: 32051257] Diagnosis: Irritable bowel syndrome (IBS)[ICD9: 564.1] Ale Carlos MD, [facility] [place] CPT-4: 90602 03/01/2011 79738 EST. PATIENT, LEVEL IV Diagnosis: Mild cognitive impairment with memory loss[ICD9: 331.83] Diagnosis: GENERALIZED ANXIETY DISEASE[ICD9: 300.02] Diagnosis: Bruising[ICD9: 924.9] Diagnosis: HYDROCELE[ICD9: 603.9] Ale Carlos MD, [facility] CPT-4: 17729 02/01/2011 04999 EST. PATIENT, LEVEL III Diagnosis: Testicular pain[ICD9: 608.9] Diagnosis: GENERALIZED ANXIETY DISEASE[ICD9: 300.02] Nelly Carlos MD, [facility] CPT-4: 86786 01/27/2011 35375 EST. PATIENT, LEVEL III Diagnosis: Arm bruise[ICD9: 923.9] Nelly Carlos MD, [facility] CPT-4: 57309 01/26/2011 OFFICE VISIT, NEW - LEVEL 4 Diagnosis: DIARRHEA[ICD9: 787.91] Diagnosis: Elevated liver function tests[ICD9: 790.6] Diagnosis: Abdominal discomfort[ICD9: 789.00] Ale Carlos MD, [facility] CPT- 4: 34008 01/06/2011 Plan of Care Planned Activity Notes [...] nail debridement. 05/18/2018 Appointment: Ale Carlos WPtel: [phone] [facility] (15 min) Moderate 05/18/2018 Patient Education: [...] mouth discomfort. 04/13/2018 Appointment: Ale Carlos WPtel: [phone] [facility] (30 min) Complex 04/13/2018 Patient Education: [...] upset. 02/08/2018 Appointment: Ale Carlos WPtel: [phone] [facility] (30 min) Complex 02/08/2018 Patient Education: Patient Medication Summary Completed 02/08/2018 Patient Education: Hypertension Completed 02/08/2018 Appointment: Nelly Keen WPtel: [phone] [place] (15 min) Moderate 02/02/2018 Visit Plan: Skicwuncxbuv-eufhfay-ms start trulance 3mg daily Dry mouth-biotene mouth spray 01/19/2018 Appointment: Ale Carlos WPtel: [facility] (30 min) Complex 01/19/2018 Patient Education: [...] or concerns 01/12/2018 Appointment: Nelly Keen WPtel: [phone] (15 min) Moderate 01/12/2018 Patient Education: Patient [...] be helping his symptoms. 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 I have recommended that he is to eat 1/2 a sandwich with his ensure at bedtime. 01/05/2018 [facility]ment: [phone] ([facility]) Moderate 01/05/2018 Patient Education: Patient Medication Summary Completed 01/05/2018 [facility]ment: [phone] (30 min) Complex 01/04/2018 Visit Plan: [...] 11/03/2017 Care Plan: Referral Order SNOMED-CT : 663150901 Pending 10/28/2017 Visit Plan: Constipation - uncontro [...] improving. 2017 [phone] ([facility]) Moderate 2017 Patient Education: Patient [...] size. 10/13/2017 [facility]ment: [phone] ([facility] min) Complex 10/13/2017 Patient Education: [...] the medication. 09/26/2017 Appointment: Ale Carlos WPtel: [address] [place], [place] [phone] (15 min) Moderate 09/26/2017 Patient Education: Patient Medication Summary Completed 09/26/2017 Appointment: Ale Carlos WPtel: [address] [place], [place] [phone] (30 min) Complex 09/14/2017 Visit Plan: Constipation [...] the ER. 09/12/2017 Appointment: Ale Carlos WPtel: [facility] (30 min) Complex 09/12/2017 Patient Education: Patient Medication Summary Completed 09/12/2017 Visit Plan: Ongoing fatigue - persi stent - will check labs and treat as indicated - pt is to notify clinic if symptoms do not improve, if they worsen, or with any changes, questions, or concerns. 09/09/2017 Appointment: Ruchi Agee WPtel: [facility] (30 min) Complex 09/09/2017 Patient Education: Patient [...] home. 08/17/2017 Appointment: [phone] (15 min) Moderate 08/17/2017 Patient Education: [...] foods. 07/20/2017 Appointment: Ale Carlos WPtel: [phone] [facility] (30 min) Complex 07/20/2017 Appointment: Ale Carlos WPtel: [phone] [facility] (30 min) Complex 07/20/2017 Patient Education: Patient Medication Summary Completed 07/20/2017 App[facility]ment: [phone] ([facility] min) Complex 07/19/2017 App[facility]ment: [phone] (15 min) Moderate 07/18/2017 Visit Plan: Constipation [...] improved on this regimen. 07/01/2017 Appointment: Ruchi Ageetel: [facility] (30 min) Complex 07/01/2017 Appointment: Ruchi Agee WPtel: [facility] (30 min) Complex 07/01/2017 Patient Education: Patient Medication Summary Completed 07/01/2017 Visit Plan: Neck and upper back reji n and gait unsteadiness - referral to [facility] for upper and low back pain and left arm pain and have gait eval. get Aspercreme from [employer] for your upper neck/upper back. Abdominal upset/cramping - lactaid pills - take before you drink milk or eat cheese or ice cream or yogurt use gas-ex one pill three times daily Chronic anxiety - stable - continue with current management. 06/21/2017 Appointment: lAe Carlos WPtel: [address] [place], [place] [phone] (30 min) Complex 06/21/2017 Patient Education: Patient [...] at home. 03/21/2017 Appointment: Ale Carlos WPtel: [address] [place], [place] [phone] (30 min) Complex 03/21/2017 Patient Education: Patient [...] allergy spray. 03/08/2017 Appointment: Nelly Keen WPtel: [phone] (30 min) Complex 03/08/2017 Patient Education: Patient [...] flu shot 01/25/2017 Appointment: Ale Carlos WPtel: [facility] (30 min) Complex 01/25/2017 Patient Education: [...] not improving. 12/20/2016 Appointment: Ale Carlos WPtel: [facility] (30 min) Complex 12/20/2016 Patient Education: Patient Medication Summary Completed 12/20/2016 Patient Education: Hypertension Completed 12/20/2016 Appointment: Ruchi Agee WPtel: [phone] [place] [address] - Annual Wellness Visit 12/03/2016 Visit Plan: [...] acutely worsen. 11/25/2016 Appointment: Ale Carlos WPtel: [facility] (15 min) Moderate 11/25/2016 Patient Education: [...] thrush. 11/18/2016 Appointment: Ale Carlos WPtel: [phone] [facility] [place] (15 min) Moderate 11/18/2016 Patient Education: [...] and namenda. labs to be done [facility] 08/23/2016 Appointment: Ale Carlos WPtel: [phone] [facility] (30 min) Complex 08/23/2016 Patient Education: [...] home. 04/26/2016 Appointment: [phone] [place] (30 min) Complex 04/26/2016 Patient Education: Patient Medication Summary Completed 04/26/2016 Visit Plan: Joint effusion - recomm ended drainage and referral to orthopedic surgeon for surgical debridement of bursa 02/17/2016 Appointment: [phone] [place] (30 min) Complex 02/17/2016 Patient Education: Patient Medication Summary Completed 02/17/2016 Visit Plan: Bursitis-right elbow-dr healy today in the office- increase anti inflammatories for the next 5 days as directed-call if symptoms do not resolve, swelling returns or new symptoms develop-patient verbalized understanding of plan. 02/09/2016 Appointment: Nelly Keen WPtel: [phone] [phone] (30 min) Complex 02/09/2016 Patient Education: Patient Medication Summary Completed 02/09/2016 Patient Education: Patient Medication Summary Completed 02/05/2016 Care Plan: Metabolic Pending 02/05/2016 Visit Plan: Bursitis-right elbow-dr healy today in the office- increase anti inflammatories for the next 5 days as directed-call if symptoms do not resolve, swelling returns or new symptoms develop-patient verbalized understanding of plan. 02/03/2016 Appointment: Nelly Keen WPtel: [phone] (30 min) Complex 02/03/2016 Patient Education: Patient Medication Summary Completed 02/03/2016 Patient Education: Patient Medication Summary Completed 01/30/2016 Care Plan: Metabolic Due on Pending 01/30/2016 Visit Plan: Abdominal pain - nausea - Pt to have IV fluids at hospital 01/26/2016 Appointment: Ale Carlos WPtel: [phone] [facility] [...] spray. 01/21/2016 Appointment: Nelly Keen WPtel: [phone] [phone] [place] (30 min) Complex 01/21/2016 Patient Education: [...] treatment. 09/02/2015 Appointment: [phone] [place] (15 min) Moderate 09/02/2015 Patient Education: Patient [...] injection today 05/06/2015 Appointment: [phone] (15 min) Moderate 05/06/2015 Patient Education: Patient Medication Summary Completed 05/06/2015 Patient Education: Hypertension Completed 05/06/2015 Care Plan: COMPLETE CBC AUTOMATED LOINC : 12872-3 Ordered 05/06/2015 Visit Plan: Hypertension - well [...] current medications. 03/05/2015 Appointment: Ale Carlos [facility]Ptel: [facility] (30 min) Complex 03/05/2015 Patient Education: [...] improved. 12/04/2014 Appointment: Ale [facility]Ptel[phone] Follow up 12/04/2014 Patient Education: Patient [...] 09/24/2014 Care Plan: CT ABD & PELV /> REGNS LOINC : 45996-3 Ordered 09/24/2014 Visit Plan: Hypertension - well [...] THAT HE SHOULD NOT BE DRIVING TO [place] 07/26/2014 Appointment: Sick 07/26/2014 Appointment: Sick 07/26/2014 [...] medication list. 07/10/2014 Appointment: Ale [phone] Follow up 07/10/2014 Patient Education: Patient Medication Summary Completed 07/10/2014 Patient Education: Hypertension Completed 07/10/2014 Appointment: Ale Carlos WPtel: [phone] [facility] Follow up 06/20/2014 Appointment: Ale Carlos WPtel: [phone] [facility] Follow up 06/10/2014 Visit Plan: Anxiety [...] in blood pressure readings at home. Urinary vpapobuwh-TEQ-yvhegp flomax to bedtime Dizziness-stop hydrocodone and ativan [...] 3 WEEKS 05/29/2014 Appointment: [phone] [place] Sick 05/29/2014 Patient Education: Patient Medication Summary Completed 05/29/2014 Patient Education: Hypertension Completed 05/29/2014 Appointment: [facility]Ptel[phone] Lab Draw 05/23/2014 Patient Education: Patient Medication Summary Completed 05/23/2014 Visit Plan: Pneumonia - Pt has been diagnosed with pneumonia by physical exam. A chest xray has been ordered as have antibiotics. The pt is aware of the diagnosis and the need for acute treatment of this illness. A dmfavgfn-olgjh-eomqbqu flonase nasal spray Hyponatremia-increase gatorade as directed 05/20/2014 Visit Plan: Pneumonia - Pt has been diagnosed with pneumonia by physical exam. A chest xray has been ordered as have antibiotics. The pt is aware of the diagnosis and the need for acute treatment of this illness. A llqlpawq-kuclb-ovjobch flonase nasal spray Hyponatremia-increase gatorade as directed ADDENDUM: RECOMMEND PATIENT START ON ALBUTEROL NEBULIZER TREATMENTS EVERY 4 HOURS NEEDED FOR SHORTNESS OF BREATH/WHEEZING. DX SECONDARY PNEUMONIA FROM INFLUENZA, COUGH 05/20/2014 Patient Education: Patient Medication Summary Completed 05/20/2014 Appointment: Ale Carlos WPtel: [facility] [place] Injection 03/26/2014 Patient Education: Patient [...] Dr. Merlos. 03/25/2014 Appointment: Ale Carlos WPtel: [facility] Follow up 03/25/2014 Patient Education: Patient Medication Summary Completed 03/25/2014 Patient Education: Hypertension Completed 03/25/2014 Visit Plan: Toxjp-oenfnwvzw-yvjckzl laryngeal reflux-RX for protonix (patient is on [...] at home. 12/24/2013 Appointment: Ale Carlos WPtel: [address] [place], [place] [phone] Follow up 12/24/2013 Patient Education: Patient Medication [...] portion size. 11/20/2013 Appointment: Ale Carlos WPtel: [address] [place], [place] [phone] Follow up 11/20/2013 Patient Education: Patient Medication Summary Completed 11/20/2013 Appointment: Ale Carlos WPtel: [address] [place], [place] [phone] Follow up 11/06/2013 Visit Plan: Weight loss-increase po rtions-add snacks in the morning and afternoon-follow up in 3 weeks for weight check Low sodium-check labs-restart gatorade Jshwfxh-ilyrae-twncb labs and UA 10/30/2013 Patient Education: Patient Medication Summary Completed 10/30/2013 Appointment: Ale Carlos WPtel: [address] [place], [place] [phone] Follow up 10/16/2013 Visit Plan: Sinusitis - [...] Dr. Merlos. 06/18/2013 Appointment: Ale Carlos WPtel: [address] [place], [place] [phone] Follow up 06/18/2013 Patient Education: Patient Medication [...] acute concerns. 04/04/2013 Appointment: Ale Carlos WPtel: [address] [place], [place] [phone] Follow up 04/04/2013 Patient Education: Patient Medication [...] report. 02/19/2013 Appointment: Ale Carlos WPtel: [phone] [facility] Follow up 02/19/2013 Patient Education: Patient Medication Summary Completed 02/19/2013 Patient Education: Hypertension Completed 02/19/2013 Patient Education: Patient Medication Summary Completed 02/06/2013 Visit Plan: Hypertension - well con gómezlled - continue with current medications, continue with [...] loss. 10/16/2012 Appointment: Ale [facility] [facility] [facility] 10/16/2012 Patient Education: Patient Medication Summary Completed 10/16/2012 Patient Education: Hypertension Completed 10/16/2012 Visit Plan: Hypertension - well con gómezlled - continue with current medications, continue with [...] return. 06/19/2012 Appointment: Ale Carlos [facility] [facility] Follow up 06/19/2012 Patient Education: Patient [...] the bentyl. 03/20/2012 Appointment: Ale Carlos WPtel[facility] [place] Follow up 03/20/2012 Patient Education: Patient Medication Summary Completed 03/20/2012 Patient Education: High Blood Pressure: Essential Hypertension Completed 03/20/2012 Appointment: Ale [facility]el[facility] [address] [facility] [place] Follow up 02/22/2012 Visit Plan: Hypertension [...] as needed. 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 I anticipate it will be at least 4-6 months before he can be off of the plavix and aspirin for additonal procedures unless it is of extreme urgency. 12/20/2011 Appointment: Ale Carlos WPtel: [address] [place], [place] [id number] Follow up 12/20/2011 Patient Education: Patient Medication Summary Completed 12/20/2011 Patient Education: High Blood Pressure: Essential Hypertension Completed 12/20/2011 Appointment: Ale Carlos WPtel: [address] [place], [place] [id number] Other 12/13/2011 Visit Plan: Pain in groin post hear t cath with increased discomfort and increased size - will order an ultrasound for today. 12/09/2011 Appointment: Ale Carlos WPtel: [address] [place] [address] Other 12/09/2011 Patient Education: Patient Medication Summary [...] either medication. 08/25/2011 Appointment: Ale Carlos WPtel: [address] [place] [address] Other 08/25/2011 Patient Education: Patient Medication Summary Completed 08/25/2011 Patient Education: High Blood Pressure: Essential Hypertension Completed 08/25/2011 Visit Plan: Hypertension - well con gómezlled - continue with current medications, continue with [...] low doses. 06/23/2011 Appointment: Ale Carlos WPtel: [address] [place] [address] Other 06/23/2011 Patient Education: Patient Medication Summary Completed 06/23/2011 Patient Education: High Blood Pressure: Essential Hypertension Completed 06/23/2011 Appointment: Ale Carlos WPtel: [address] [place] [address] Other 04/26/2011 Visit Plan: Hypertension - well [...] seeds, etc. 04/19/2011 Appointment: Ale Carlos WPtel: [address] [place], [place] [id number] Other 04/19/2011 Patient Education: Patient Medication Summary Completed 04/19/2011 Patient Education: High Blood Pressure: Essential Hypertension Completed 04/19/2011 Patient Education: Diverticulosis Diet Completed 04/19/2011 Appointment: Nelly Keen WPtel: [address] [place], [place] [id number] Other 03/23/2011 Patient Education: Patient Medication Summary Completed 03/23/2011 Patient Education: High Blood Pressure: Essential Hypertension Completed 03/23/2011 Visit Plan: Record blood pressure a nd heart rate at home and drop the readings by the office in two weeks. No change in medications today. Laceration - removed suture today - pt to call if any complications arise. 03/08/2011 Appointment: Ale Carlos WPtel: [facility] Other 03/08/2011 Patient Education: Patient [...] a day. 03/01/2011 Appointment: Ale Carlos WPtel: [facility] [place] Other 03/01/2011 Patient Education: Patient Medication Summary Completed 03/01/2011 Patient Education: High Blood Pressure: Essential Hypertension Completed 03/01/2011 Appointment: [facility]el[facility] [phone] [place] Injection 02/25/2011 Patient Education: Patient Medication Summary Completed 02/25/2011 Appointment: Ale Carlos [facility]Ptel[facility] [place] Injection 02/16/2011 Patient Education: Patient Medication Summary Completed 02/16/2011 Appointment: Ale Carlos [facility]Ptel[facility] [place] Injection 02/09/2011 Patient Education: Patient Medication Summary Completed 02/09/2011 Appointment: Ale Carlos WPtel: [facility] [place] Follow up 02/02/2011 Visit Plan: [...] Kenji Dash in [place]. Upon our conversation [id number], Kenji vocalized concerns for his Dad's memory. He stated that he has noticed his father not being as quick in his cognitive functioning, he has noticed some concerns with driving as well. He states that he will discuss these concerns with his parents and other siblings. 02/01/2011 Appointment: Ale Carlos WPtel: [address] [place], [place] [id number] Other 02/01/2011 Patient Education: Patient Medication Summary [...] as needed. 01/27/2011 Appointment: Ale Carlos WPtel: [facility] [place] New Patient 01/27/2011 Patient Education: Patient Medication Summary Completed 01/27/2011 Visit Plan: Bruising/hematoma left arm-discussed natural and expected course of this diagnosis and to alert me if symptoms do not follow expected course or if any worse, Continue with ice/heat as needed for disc omfort. Call for any concerns. 01/26/2011 Appointment: Nelly Keen WPtel: [phone] [place] Other 01/26/2011 Patient Education: Patient Medication [...] course. 01/15/2011 Appointment: Nelly Keen WPtel: [address] [facility] [place] [address] Other 01/15/2011 Patient Education: Patient Medication Summary [...] diet. 01/06/2011 Appointment: Ale Carlos WPtel: [address] [facility] [place] New Patient 01/06/2011 Patient Education: Patient Medication Summary Completed 01/06/2011 Referral: External, Ordering Provider Referral Relationship Instructions Comment INCREASE YOUR MELOXI CAM (MOBIC) TO 1/2 PILL TWICE DAILY X 5 DAYS CALL IF YOUR ELBOWS SWELLS AGAIN OR YOU DEVELOP PAIN OR OTHER CONCERNS . Bursitis-right elbow-drained today in the office-increase anti inflammatories for the next 5 days as directed-call if symptoms do not resolve, swelling returns or new symptoms develop-patient verbalized understanding of plan. . Irritable bowel sy ndrome with constipation [...] treatments which can avoid rectal irritation. . Abdominal pain - n ausea - [...] needed -call with any questions or concerns Increase your loraze anmol to 1/2 tablet [...] need for acute treatment of this illness. Dmczsdpjn-rseyf-joatrxu flonase nasal spray Hyponatremia-increase gatorade as directed . Pneumonia - Pt has been diagnosed with pneumonia by physical exam. A chest xray has been ordered as have antibiotics. The pt is aware of the diagnosis and the need for acute treatment of this illness. Uqornbehd-igwyc-ksptyvc flonase nasal spray Hyponatremia-increase gatorade as directed [...] be helping his symptoms. 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 I have recommended that he is to eat 1/2 a sandwich with his ensure at bedtime. . 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 I anticipate it will be at least 4-6 months before he can be off of the plavix and aspirin for additonal procedures unless it is of extreme urgency. CHECK LABS-CBC, CMP, UA WITH C&S IF INDICATED . Weight loss-increase portions-add snac ks in the morning and afternoon-follow up in 3 weeks for weight check Low sodium-check labs-restart gatorade Nogupou-mgpchk-ytbek labs and UA Dr. Carlos talked to Dr. Merlos today [...] of his anxiety and memory loss. . Allergies - recomm ended pt to [...] spray. . Hypertension - wel l controlled at [...] evaluated and call pt with report. INCREASE GATORADE TO TWICE DAILY . Abdominal pain-patient reports worseni ng symptoms-schedule CT abdomen/pelvis to evaluate for acute abnormality Low sodium-increase gatorade to twice HTN-well controlled-no change in treatment INCREASE GATORADE TO TWICE DAILY . Abdominal pain-patient reports worseni ng symptoms-schedule CT abdomen/pelvis to evaluate for acute abnormality Low sodium-increase gatorade to twice HTN-well controlled-no change in treatment . Rrajd-tzcoqwddd-vd spect laryngeal reflux-RX for protonix (patient is [...] exposure. No change in current medications. . Bronchitis - acute but improving - case of bronchitis - Pt has been given antibiotics, breathing treatments as appropriate, and pt has been instructed to call if symptoms are not improved, or if symptoms acutely worsen. . Constipation - co ntinue with Miralax [...] the glyburide as prescribed through the ER. . Hypertension - wel l controlled - [...] and namenda. [place] [facility] [place] [facility] [place] in [...] to call if symptoms are not improving. pt has been advised to use THE [...] Kenji Dash in [place]. Upon our conversation seho-eik-jkbey, Kenji vocalized concerns for his Dad's memory. He stated that he has noticed his father not being as quick in his cognitive functioning, he has noticed some concerns with driving as well. He states that he will discuss these concerns with his parents and other siblings. . Ethmoid sinusitis - check sinus xray - if positive will call out rx for antibiotic nasal spray stop losartan - [facility] [...] not need increased dose of either medication. ESCITALOPRAM (LEXAPR O) 5MG DAILY AT BEDTIME-THIS [...] in blood pressure readings at home. Urinary spryglbrr-UWI-urtgag flomax to bedtime Dizziness-stop hydrocodone and ativan Trulance 3mg daily biotene dry mouth spray -it is over the counter . Kjwwsjvboufp-fnghjcl-zaastwn trulance 3mg daily Dry mouth-biotene mouth spray sour candies - like kendrick jolly ranchers [...] rigidity of movement - stop the medication. get Aspercreme from [facility] for your upper [...] DAY. DECREASE LOSARTAN TO 25MG - TAKE /2 OF A TABLET OF THE 50MG PILL [...] THE EVENING OF 01/15/11 . Hypertension - wel l controlled - [...] MIKAELA if symptoms of irritable colon return. Blood pressure check today in the office-improving. . Hypertension - wel l controlled - continue with current medications, continue with no added salt diet. Pt has been encouraged to exercise daily. The pt has been advised to call the office if there are any acute concerns about change in blood pressure readings at home. . Hypertension - wel l controlled - [...] - continue with treatment per Dr. Merlos. decrease Protonix (p antoprazole) to ONE pill [...] unit did not include a medication list. if you are still segundo ing protonix [...] rigidity of movement - stop the medication. for now - keep on Miralax - use the miralax daily - [...] Advance your diet back to regular foods. Appointment in [address] [place] [address] Carlos. Recommend Lactobacillus 1 orally [...] report. Finish antibiotics for full course. . Chronic Depression and anxiety-improved over the past several weeks- the pt has symptoms of chronic anxiety and depression that have been fairly well controlled since the last office visit. The pt has expected periods of exacerbation with abatement of the symptoms with change in situational exposure. No change in current medications. INSTRUCTED PATIENT THAT HE SHOULD NOT BE DRIVING TO [place] Pt is to try 1/2 pil l [...] in your mouth discomfort. . Hypertension - we ll controlled - [...] with use of mobic at low doses. PT HAS BEEN INSTRUCT ED TO INCREASE [...] pt is to call for acute concerns. . Hypertension - we ll controlled - [...]
--- OUTSIDE RECORDS SUMMARY | 2019-07-16 08:02 | XMS REPORT | CCD ---
Author Author Kenneth Carlos Organization Ale Carlos MD, [facility] Address [address] [place] [address] Phone Care Team Providers Care Circuit Walker Name Role Phone Ale Carlos PP Unavailable CCM Unavailable Summary Purpose Interface Exchange Insurance Providers Payer name Policy type / Coverage type Covered republican ID Effective Begin Date Effective End Date WPS Medicare Part B Medicare Part B [id number] Unknown Unknown [facility] icare Part B [id number] Unknown Unk nown Family history Runs in the family Diagnosis Age At Onset No Family Disease Entered N/A Mother Diagnosis Age At Onset No Family Disease Entered N/A Father Diagnosis Age At Onset Heart disease Unknown Social History Social History Element Codes Description Effective Dates Number of children Unknown 3 ([place], [place], [place]) 10/14/19 18 Living arrangements Unknown House 01/11/2011 Number of adults in household Unknown 2 01/11/2011 Education level Unknown Post-Graduate PHD in chemistry 01/11/2011 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 Unknown Has never used illegal drugs 011 Allergies, Adverse Reactions, Alerts Substance Reaction Codes Entered Date Inactivated Date Status * NO KNOWN FOOD NAYE RGIES Unknown 04/19/2011 No Inactive Date Active Toradol RxNorm: 73948 03/05/2011 No Inactive Date Active Lisinopril cough, [...] Fill Instructions Zantac 150 mg tablet RxNorm: 688398 1 TABLET(S) PO QAM 06/12/2018 01/07/2019 Active lisinopril 20 mg tablet RxNorm: 035735 TAKE 1 TABLET DAILY 06/05/2018 12/01/2018 Active triamterene 37.5 mg- hydrochlorothiazide 25 mg tablet RxNorm: 396550 1 Tablet(s) PO daily 05/18/2018 12/13/2018 Active cetirizine 10 mg tablet RxNorm: 8021703 TABLET(S) 1 TABLET(S) PO DAILY TO TAKE I NSTEAD OF THE CLARITIN 03/13/2018 02/05/2019 Active amlodipine 10 mg tablet RxNorm: 491369 TAKE 1 TABLET BY MOUTH EVERY DAY 03/09/2018 10/04/2018 Ac tive fluticasone 50 mcg/a ctuation nasal spray,suspension RxNorm: 5911152 1 [place] NASAL BID 02/08/2018 No Stop Date Active fluticasone 50 mcg/a ctuation nasal spray,suspension RxNorm: 8833713 1 [place] NASAL BID 02/08/2018 02/07/2018 Inactive Trulance 3 mg tablet RxNorm: 8686203 1 Tablet(s) PO QAM 01/19/2018 07/17/2018 Active cefdinir 300 mg capsule RxNorm: 969799 1 Capsule(s) PO BID 12/28/2017 01/03/2018 Inactive cefdinir 300 mg capsule RxNorm: 393199 1 Capsule(s) PO BID 12/28/2017 12/27/2017 Inactive clopidogrel 75 mg ta blet RxNorm: 629065 TAKE 1 TABLET BY MOUT H EVERY DAY 12/26/2017 06/23/2018 Ac tive Namenda 10 mg tablet RxNorm: 020123 Tablet(s) TAKE 1 TABLET BY MOUTH TWICE D AILY. 12/15/2017 No Stop Date Active Robinul 1 mg tablet RxNorm: 625212 1/2 Tablet(s) PO AC & HS 12/12/2017 12/14/2017 Inactive Robinul 1 mg tablet RxNorm: 409181 1/2 Tablet(s) PO AC & HS 12/12/2017 12/11/2017 Inactive donepezil 10 mg tablet RxNorm: 422787 1 TABLET(S) PO DAILY TAKE 1 TABLET BY MO UTH ONCE DAILY 12/08/2017 12/11/2017 Inactive Patient requests 90 days supply lisinopril 20 mg tablet RxNorm: 433249 TAKE 1 TABLET DAILY 12/05/2017 01/11/2018 Inactive Cymbalta 30 mg capsu le,delayed release RxNorm: 217935 1 Capsule(s) PO daily 12/05/2017 12/04/2017 In active Cymbalta 30 mg capsu le,delayed release RxNorm: 972270 1 Capsule(s) PO daily 12/05/2017 12/05/2017 In active Trulance 3 mg tablet RxNorm: 4901497 1 Tablet(s) PO daily 11/14/2017 12/13/2017 Inactive Linzess 145 mcg capsule RxNorm: 9007759 1 Capsule(s) PO daily 10/28/2017 12/14/2017 Inactive Zantac 150 mg tablet RxNorm: 682662 1 Tablet(s) PO QAM 10/13/2017 01/04/2018 Inactive mirtazapine 15 mg ta blet RxNorm: 224992 TAKE ONE TABLET BY MO UTH EVERY DAY 09/29/2017 09/23/2018 Ac tive Mobic 15 mg tablet RxNorm: 509194 1/2 TABLET(S) DAILY 09/26/2017 12/19/2017 Inactive lisinopril 20 mg tablet RxNorm: 861293 1/2 Tablet(s) daily 09/13/2017 01/12/2018 Inactive amlodipine 10 mg tablet RxNorm: 394773 TAKE 1 TABLET BY MOUTH EVERY DAY 09/09/2017 03/07/2018 In active Reglan 5 mg tablet RxNorm: 374787 1/2 Tablet(s) PO TID may increase up to a full pill three times daily as needed for poor GI motility 07/20/2017 09/17/2017 Inactive Protonix 40 mg table t,delayed release RxNorm: 986423 1 Tablet(s) PO daily 07/04/2017 01/29/2018 In active clopidogrel 75 mg ta blet RxNorm: 904840 TAKE 1 TABLET BY MOUT H EVERY DAY 06/20/2017 12/16/2017 In active cetirizine 10 mg tablet RxNorm: 8788208 TABLET(S) 1 TABLET(S) PO DAILY TO TAKE I NSTEAD OF THE CLARITIN 06/06/2017 03/12/2018 Inactive lisinopril 20 mg tablet RxNorm: 486233 TAKE 1 TABLET DAILY 05/30/2017 09/12/2017 Inactive Mobic 15 mg tablet RxNorm: 866273 1/2 TABLET(S) DAILY 03/21/2017 09/16/2017 Inactive donepezil 10 mg tablet RxNorm: 221490 1 Tablet(s) PO daily TAKE 1 TABLET BY MO UTH ONCE DAILY 02/28/2017 11/24/2017 Inactive Patient requests 90 days supply Requip 0.25 mg tablet RxNorm: 307016 1 TABLET(S) PO BID 01/24/2017 01/04/2018 Inactive Patient requests 90 days supply clopidogrel 75 mg ta blet RxNorm: 756331 TAKE 1 TABLET BY MOUT H EVERY DAY 12/23/2016 06/19/2017 In active lisinopril 20 mg tablet RxNorm: 422412 TAKE 1 TABLET DAILY 11/26/2016 05/24/2017 Inactive Kenalog 40 mg/mL hugo pension for injection RxNorm: 6583308 Milliliter(s) Inj 11/25/2016 11/25/2016 In active cefdinir 300 mg capsule RxNorm: 623591 1 Capsule(s) PO BID 11/23/2016 11/27/2016 Inactive cefdinir 300 mg capsule RxNorm: 187300 1 Capsule(s) PO BID 11/23/2016 11/22/2016 Inactive nystatin 100,000 uni t/mL oral suspension RxNorm: 390454 5 Milliliter(s) PO QI D 11/18/2016 11/27/2016 In active azithromycin 250 mg tablet RxNorm: 582055 1 Tablet(s) PO UD 2 p ills on day #1 then one pill daily x 4 more days 11/18/2016 11/22/2016 Inactive Mobic 15 mg tablet RxNorm: 371510 1/2 TABLET(S) DAILY 10/28/2016 03/20/2017 Inactive citalopram 10 mg tablet RxNorm: 012263 TAKE 1 TABLET BY MOUTH EVERY DAY 10/07/2016 03/05/2017 In active Patient requests 90 days supply mirtazapine 15 mg ta blet RxNorm: 058944 TAKE ONE TABLET BY MO UTH EVERY DAY 10/06/2016 09/28/2017 In active mirtazapine 15 mg ta blet RxNorm: 289318 TAKE ONE TABLET BY MO UTH EVERY DAY 10/05/2016 10/05/2016 In active Patient requests 90 days supply amlodipine 10 mg tablet RxNorm: 556014 TAKE 1 TABLET BY MOUTH EVERY DAY 09/14/2016 01/24/2017 In active clopidogrel 75 mg ta blet RxNorm: 254654 TAKE 1 TABLET BY MOUT H EVERY DAY 06/28/2016 12/22/2016 In active lisinopril 20 mg tablet RxNorm: 331228 TAKE 1 TABLET DAILY 05/31/2016 11/25/2016 Inactive donepezil 10 mg tablet RxNorm: 909964 TAKE 1 TABLET BY MOUTH ONCE DAILY 05/11/2016 11/06/2016 In active donepezil 10 mg tablet RxNorm: 241980 TAKE 1 TABLET BY MOUTH ONCE DAILY 04/26/2016 02/28/2017 In active Mobic 15 mg tablet RxNorm: 623178 1/2 Tablet(s) daily 04/19/2016 10/15/2016 Inactive citalopram 10 mg tablet RxNorm: 323176 TAKE 1 TABLET BY MOUTH EVERY DAY 04/06/2016 04/25/2016 In active cetirizine 10 mg tablet RxNorm: 3226905 Tablet(s) 1 TABLET(S) PO DAILY TO TAKE I NSTEAD OF THE CLARITIN 03/30/2016 02/22/2017 Inactive amlodipine 10 mg tablet RxNorm: 014653 TAKE 1 TABLET BY MOUTH EVERY DAY 03/08/2016 01/24/2017 In active amlodipine 10 mg tablet RxNorm: 712882 1 Tablet(s) PO daily TAKE 1 TABLET BY MO UT ONCE DAILY 03/03/2016 03/07/2016 Inactive Requip 0.25 mg tablet RxNorm: 991286 1 Tablet(s) PO BID 03/03/2016 09/13/2016 Inactive Mobic 15 mg tablet RxNorm: 264874 1 Tablet(s) daily not refilled on a 02/23/2016 04/18/2016 In active cetirizine 10 mg tablet RxNorm: 8570610 1 TABLET(S) PO DAILY TO TAKE INSTEAD OF THE CLARITIN 02/19/2016 03/19/2016 Inactive lisinopril 20 mg tablet RxNorm: 768518 TAKE 1 TABLET DAILY 02/18/2016 05/17/2016 Inactive Namenda 10 mg tablet RxNorm: 281087 Tablet(s) TAKE 1 TABLET BY MOUTH TWICE D AILY. 02/17/2016 12/14/2017 Inactive lisinopril 20 mg tablet RxNorm: 091651 TAKE 1 TABLET DAILY 01/23/2016 01/24/2017 Inactive cetirizine 10 mg tablet RxNorm: 2132922 1 Tablet(s) PO daily to take instead of the claritin 01/21/2016 02/18/2016 Inactive amlodipine 10 mg tablet RxNorm: 871469 1 Tablet(s) PO daily TAKE 1 TABLET BY MO UTH ONCE DAILY 12/02/2015 03/02/2016 Inactive clopidogrel 75 mg ta blet RxNorm: 510956 TAKE 1 TABLET BY MOUT H EVERY DAY 11/25/2015 05/22/2016 In active Mobic 15 mg tablet RxNorm: 181462 TAKE(1/2) TABLET DAILY. 11/17/2015 02/22/2016 Inactive lisinopril 20 mg tablet RxNorm: 185659 TAKE 1 TABLET DAILY 11/17/2015 01/15/2016 Inactive Mobic 15 mg tablet RxNorm: 125117 1/2 Tablet(s) PO daily TAKE (1/2) TABLET DAILY. 11/12/2015 11/16/2015 Inactive citalopram 10 mg tablet RxNorm: 257765 TAKE 1 TABLET BY MOUTH EVERY DAY 10/27/2015 04/05/2016 In active Requip 0.25 mg tablet RxNorm: 518318 1 Tablet(s) PO BID 10/15/2015 02/11/2016 Inactive Requip 0.25 mg tablet RxNorm: 476795 1 Tablet(s) PO BID 10/15/2015 10/14/2015 Inactive mirtazapine 15 mg ta blet RxNorm: 404915 1 Tablet(s) PO daily 09/08/2015 10/01/2016 Inactive donepezil 10 mg tablet RxNorm: 920478 TAKE 1 TABLET DAILY 09/01/2015 04/25/2016 Inactive amlodipine 10 mg tablet RxNorm: 964346 1 Tablet(s) PO daily TAKE 1 TABLET BY MO UTH ONCE DAILY 08/18/2015 12/01/2015 Inactive clopidogrel 75 mg ta blet RxNorm: 401019 1 Tablet(s) PO daily TAKE 1 TABLET DAILY 05/20/2015 11/24/2015 In active Mobic 15 mg tablet RxNorm: 894127 Tablet(s) TAKE (1/2) TABLET DAILY. 04/23/2015 10/19/2015 In active lisinopril 20 mg tablet RxNorm: 441970 TAKE 1 TABLET DAILY 04/22/2015 11/16/2015 Inactive Mobic 15 mg tablet RxNorm: 814268 TAKE (1/2) TABLET DAILY. 04/22/2015 04/22/2015 Inactive sulfamethoxazole 400 mg-trimethoprim 80 mg tablet RxNorm: 706696 1/2 Tablet(s) PO nancy y 03/11/2015 04/09/2015 Inactive Vesicare 5 mg tablet RxNorm: 286704 1 Tablet(s) PO 03/11/2015 05/09/2015 Inactive Protonix 40 mg table t,delayed release RxNorm: 550552 1 Tablet(s) PO BID 03/05/2015 09/30/2015 In active ok to change from [address] Archana rivera clopidogrel 75 mg ta blet RxNorm: 034510 1 Tablet(s) PO daily TAKE 1 TABLET DAILY 02/20/2015 05/19/2015 In active Namenda 10 mg tablet RxNorm: 152534 Tablet(s) TAKE 1 TABLET BY MOUTH TWICE D AILY. 01/22/2015 02/16/2016 Inactive amlodipine 10 mg tablet RxNorm: 347052 TAKE 1 TABLET BY MOUTH ONCE DAILY 01/14/2015 08/17/2015 In active donepezil 10 mg tablet RxNorm: 307777 TAKE 1 TABLET DAILY 01/06/2015 08/31/2015 Inactive Levsin 0.125 mg tablet RxNorm: 0042237 1 Tablet(s) PO QID as needed FOR ABD REJI N 11/05/2014 12/03/2014 In active Mobic 15 mg tablet RxNorm: 448733 1/2 Tablet(s) daily TAKE (1/2) TABLET DA MOIZ. 10/01/2014 04/21/2015 Inactive ciprofloxacin 500 mg tablet RxNorm: 805327 1 Tablet(s) PO BID 09/27/2014 10/01/2014 Inactive Flagyl 500 mg tablet RxNorm: 932996 1 Tablet(s) PO TID 09/27/2014 10/03/2014 Inactive take probiotic BID donepezil 10 mg tablet RxNorm: 137556 1/2 Tablet(s) PO BID 09/24/2014 01/05/2015 Inactive lisinopril 20 mg tablet RxNorm: 891070 TAKE 1 TABLET DAILY 09/05/2014 04/21/2015 Inactive amlodipine 10 mg tablet RxNorm: 783361 1 Tablet(s) PO daily 09/02/2014 12/30/2014 Inactive mirtazapine 15 mg ta blet RxNorm: 997828 1 Tablet(s) PO daily 08/28/2014 09/07/2015 Inactive donepezil 10 mg tablet RxNorm: 933711 1 Tablet(s) PO daily 08/28/2014 09/23/2014 Inactive citalopram 10 mg tablet RxNorm: 534993 1 Tablet(s) PO daily 08/28/2014 03/25/2015 Inactive citalopram 10 mg tablet RxNorm: 636435 1 Tablet(s) PO daily 08/07/2014 08/27/2014 Inactive citalopram 10 mg tablet RxNorm: 024749 1 Tablet(s) PO daily 08/07/2014 08/06/2014 Inactive Flagyl 500 mg tablet RxNorm: 453544 1 Tablet(s) PO TID 08/02/2014 08/01/2014 Inactive take probiotic BID Flagyl 500 mg tablet RxNorm: 409269 1 Tablet(s) PO TID 08/02/2014 08/08/2014 Inactive take probiotic BID tamsulosin ER 0.4 mg capsule,extended release 24 hr RxNorm: 406347 1 Capsule(s) PO QHS 06/06/2014 03/10/2015 Inactive TAKE AT BEDTIME escitalopram 5 mg ta blet RxNorm: 133076 1 Tablet(s) PO QPM 06/06/2014 08/06/2014 Inactive doxycycline hyclate 100 mg tablet RxNorm: 573342 1 Tablet(s) PO BID 05/31/2014 05/30/2014 Inactive doxycycline hyclate 100 mg tablet RxNorm: 912129 1 Tablet(s) PO BID 05/31/2014 06/06/2014 Inactive please deliver if not picked by 3pm Aricept 5 mg tablet RxNorm: 024945 1 Tablet(s) PO BID 05/29/2014 08/27/2014 Inactive losartan 50 mg tablet RxNorm: 378576 1/2 Tablet(s) PO daily 05/29/2014 12/28/2015 Inactive clopidogrel 75 mg ta blet RxNorm: 758125 1 Tablet(s) PO daily 05/27/2014 05/26/2014 Inactive Mobic 15 mg tablet RxNorm: 681116 TAKE (1/2) TABLET DAILY. 05/27/2014 09/30/2014 Inactive clopidogrel 75 mg ta blet RxNorm: 483710 TAKE 1 TABLET DAILY 05/27/2014 02/19/2015 Inactive Mobic 15 mg tablet RxNorm: 668622 1/2 Tablet(s) PO daily TAKE (1/2) TABLET DAILY. 05/27/2014 05/26/2014 Inactive prednisone 20 mg tablet RxNorm: 604890 1 Tablet(s) PO BID 05/21/2014 05/25/2014 Inactive albuterol sulfate 2. 5 mg/0.5 mL solution for nebulization RxNorm: 266060 1 inhale INH Q4H as needed 05/21/2014 09/01/2015 Inactive prednisone 20 mg tablet RxNorm: 414254 1 Tablet(s) PO BID 05/21/2014 05/20/2014 Inactive cefdinir 300 mg capsule RxNorm: 898592 1 Capsule(s) PO BID 05/20/2014 05/26/2014 Inactive Zithromax Z-Dequan 250 mg tablet RxNorm: 131877 1 Tablet(s) PO UD 05/20/2014 05/24/2014 Inactive zpack lorazepam 0.5 mg tablet RxNorm: 211968 1/2 to 1 Tablet(s) PO Q8 PRN as needed 04/30/2014 06/05/2014 In active Namenda 10 mg tablet RxNorm: 485539 TAKE 1 TABLET BY MOUTH TWICE DAILY. 04/15/2014 01/21/2015 In active Namenda 10 mg tablet RxNorm: 359507 1 Tablet(s) PO BID 04/15/2014 04/14/2014 Inactive losartan 50 mg tablet RxNorm: 830283 1 Tablet(s) PO daily 03/25/2014 05/28/2014 Inactive Protonix 40 mg table t,delayed release RxNorm: 456948 1 Tablet(s) PO QPM 03/21/2014 06/18/2014 In active ok to change from [address] Archana rivera fluticasone 50 mcg/a ctuation nasal spray,suspension RxNorm: 295590 1 [place] NASAL BID 03/04/2014 09/29/2014 Inactive Protonix 20 mg table t,delayed release RxNorm: 722284 1 Tablet(s) PO QPM 02/08/2014 03/20/2014 In active fluticasone 50 mcg/a ctuation nasal spray,suspension RxNorm: 205391 1 [place] NASAL BID 01/30/2014 03/03/2014 Inactive fluticasone 50 mcg/a ctuation nasal spray,suspension RxNorm: 847395 1 [place] NASAL BID 12/24/2013 01/29/2014 Inactive fluticasone 50 mcg/a ctuation nasal spray,suspension RxNorm: 517816 1 [place] NASAL BID 11/20/2013 12/23/2013 Inactive doxycycline hyclate 100 mg capsule RxNorm: 4227952 1 Capsule(s) PO BID 10/08/2013 10/17/2013 In active doxycycline hyclate 100 mg capsule RxNorm: 4977929 capsule oral 10/08/2013 10/29/2013 Inactive fluticasone 50 mcg/a ctuation nasal spray,suspension RxNorm: 549339 spray,suspension nasl 10/08/2013 11/19/2013 Inactive fluticasone 50 mcg/a ctuation nasal spray,suspension RxNorm: 293924 1 [place] NASAL BID Nasal spray- use twice daily, one spray per nostril twice daily, after 30 minutes, rinse out nose with saline spray. 10/08/2013 10/29/2013 Inactive mirtazapine 7.5 mg t ablet RxNorm: 093343 1/2 Tablet(s) PO daily 08/30/2013 08/27/2014 Inactive lorazepam 0.5 mg tablet RxNorm: 344832 1/2 Tablet(s) PO Q8 PRN 08/21/2013 04/29/2014 Inactive Aricept 5 mg tablet RxNorm: 840644 Tablet(s) PO TAKE 1 TABLET DAILY 08/21/2013 05/28/2014 In active Plavix 75 mg tablet RxNorm: 690177 Tablet(s) PO TAKE 1 TABLET DAILY 05/24/2013 12/04/2014 In active clopidogrel 75 mg ta blet RxNorm: 033245 tablet oral 05/24/2013 05/26/2014 Inactive Plavix 75 mg tablet RxNorm: 882327 1 Tablet(s) PO daily 05/23/2013 05/23/2013 Inactive meloxicam 15 mg tablet RxNorm: 598212 tablet oral 04/26/2013 03/25/2014 Inactive Mobic 15 mg tablet RxNorm: 019948 Tablet(s) PO TAKE (1/2) TABLET DAILY. 04/26/2013 05/26/2014 In active Mobic 15 mg tablet RxNorm: 165511 1/2 Tablet(s) PO daily 04/25/2013 04/25/2013 Inactive lisinopril 20 mg tablet RxNorm: 014337 1 Tablet(s) PO 04/04/2013 03/24/2014 Inactive finasteride 5 mg tablet RxNorm: 145707 tablet oral 03/22/2013 09/01/2015 Inactive lisinopril 10 mg tablet RxNorm: 040195 1 Tablet(s) PO daily 02/14/2013 04/03/2013 Inactive donepezil 5 mg tablet RxNorm: 976128 tablet oral 02/07/2013 12/24/2013 Inactive Influenza Virus Vacc ine 0.5 mL RxNorm: IM 02/06/2013 02/06/2013 Inactive Aricept 5 mg tablet RxNorm: 470522 1 Tablet(s) PO daily 02/06/2013 08/04/2013 Inactive tamsulosin ER 0.4 mg capsule,extended release 24 hr RxNorm: 116652 capsule,extended release 24hr oral 12/21/2012 06/05/2014 Inactive Plavix 75 mg tablet RxNorm: 210299 1 Tablet(s) PO daily 12/05/2012 05/03/2013 Inactive lorazepam 0.5 mg tablet RxNorm: 874154 1/2 Tablet(s) PO Q8 PRN 11/14/2012 08/20/2013 Inactive lisinopril 10 mg tablet RxNorm: 346703 1 Tablet(s) PO daily 08/08/2012 02/03/2013 Inactive Aricept 5 mg tablet RxNorm: 001592 1 Tablet(s) PO daily 08/08/2012 02/03/2013 Inactive Plavix 75 mg tablet RxNorm: 692731 1 Tablet(s) PO daily 07/04/2012 11/30/2012 Inactive Mobic 15 mg tablet RxNorm: 154742 1/2 Tablet(s) PO daily 03/20/2012 04/13/2013 Inactive Namenda 10 mg tablet RxNorm: 146298 1 Tablet(s) PO BID 02/22/2012 04/11/2014 Inactive lorazepam 0.5 mg tablet RxNorm: 504070 1/2 Tablet(s) PO Q8 PRN 02/02/2012 11/13/2012 Inactive lisinopril 10 mg tablet RxNorm: 816649 1 Tablet(s) PO daily 01/24/2012 07/21/2012 Inactive lisinopril 10 mg tablet RxNorm: 971798 1/2 Tablet(s) PO daily 12/20/2011 01/23/2012 Inactive Aricept 5 mg tablet RxNorm: 044340 1 Tablet(s) PO daily 07/14/2011 08/06/2012 Inactive Mobic 15 mg tablet RxNorm: 252313 1 Tablet(s) PO daily 07/14/2011 03/19/2012 Inactive Bentyl 10 mg Cap RxNorm: 981704 1 Capsule(s) PO daily one pill daily and every 6 hours if needed for bowel spasms. 06/23/2011 03/20/2012 Inactive amlodipine 5 mg Tab RxNorm: 321151 2 Tablet(s) PO daily 03/08/2011 12/08/2011 Inactive ZOSTAVAX 19,400 unit Sub-Q Soln RxNorm: 5606512 SQ 02/2502/25/2011 Inactive Pneumovax 23 25 mcg/ 0.5 mL Injection RxNorm: 013941 Milliliter(s) Inj 02/16/2011 02/16/2011 In active Influenza Virus Vacc ine 0.5 mL RxNorm: IM 02/09/2011 02/09/2011 Inactive Namenda 10 mg tablet RxNorm: 759648 1 Tablet(s) PO BID 02/01/2011 02/21/2012 Inactive dicyclomine 10 mg ca psule RxNorm: 406539 capsule oral 01/20/2011 10/29/2013 Inactive Namenda 5 mg tablet RxNorm: 527988 tablet oral 01/20/2011 12/24/2013 Inactive dicyclomine 20 mg ta blet RxNorm: 673574 tablet oral 01/15/2011 10/29/2013 Inactive Flagyl 500 mg Tab RxNorm: 752013 1 Tablet(s) PO TID 01/07/2011 01/06/2011 Inactive Cipro 500 mg Tab RxNorm: 408188 1 Tablet(s) PO BID 01/07/2011 06/23/2011 Inactive Cipro 500 mg Tab RxNorm: 326041 1 Tablet(s) PO BID 01/07/2011 01/06/2011 Inactive Flagyl 500 mg Tab RxNorm: 506538 1 Tablet(s) PO TID 01/07/2011 06/23/2011 Inactive metronidazole 500 mg tablet RxNorm: 679370 tablet oral 01/07/2011 12/24/2013 Inactive sulfamethoxazole 400 mg-trimethoprim 80 mg tablet RxNorm: 792242 tablet oral 12/24/2010 03/10/2015 In active mirtazapine 15 mg ta blet RxNorm: 331726 tablet oral 11/14/2010 12/24/2013 Inactive lisinopril 10 mg tablet RxNorm: 399363 tablet oral 11/14/2010 12/24/2013 Inactive doxycycline hyclate 100 mg tablet RxNorm: 362117 tablet oral 11/04/2010 12/24/2013 Inactive diphenoxylate-atropi ne 2.5 mg-0.025 mg tablet RxNorm: 6792874 tablet oral 11/03/2010 10/29/2013 In active ciprofloxacin 500 mg tablet RxNorm: 006083 tablet oral 11/01/2010 10/29/2013 Inactive Miralax 17 gram/dose oral powder RxNorm: 770883 17 Gram(s) PO daily No Start Date Active ranitidine 150 mg ta blet RxNorm: 978061 1 Tablet(s) PO daily No Start Date Active alprazolam 0.25 mg t ablet RxNorm: 111535 1 Tablet(s) PO BID PRN No Start Date Active simvastatin 20 mg ta blet RxNorm: 260547 1 Tablet(s) PO daily No Start Date Active Vesicare 5 mg tablet RxNorm: 458435 1 Tablet(s) PO daily No Start Date Active bicalutamide 50 mg t ablet RxNorm: 970443 1 Tablet(s) PO daily No Start Date Active Phenergan 6.25 mg/5 mL syrup RxNorm: 279680 5-10 Milliliter(s) PO QID as needed No Start Date Active sulfamethoxazole 500 mg Tab RxNorm: 847329 1/2 Tablet(s) PO daily No Start Date 12/24/2013 Inactive Plavix 75 mg Tab RxNorm: 976424 1 Tablet(s) PO daily No Start Date 01/26/2011 Inactive aspirin 81 mg Cap, D elayed Release RxNorm: 621837 1 Capsule(s) PO daily No Start Date 01/04/2018 Inactive Bentyl 10 mg capsule RxNorm: 222500 1 Capsule(s) PO QID as needed per dr. tylor pereira No Start Date 01/04/2018 Inactive famotidine 20 mg tablet RxNorm: 117749 1 Tablet(s) PO BID prescribed in ER No Start Date 10/13/2017 Inactive hydrocodone 5 mg-alexey taminophen 325 mg tablet RxNorm: 370243 1 Tablet(s) PO Q6 as needed No Start Date 06/05/2014 Inactive Proscar 5 mg Tab RxNorm: 289561 1 Tablet(s) PO daily No Start Date 09/01/2015 Inactive Plavix 75 mg tablet RxNorm: 488584 1 Tablet(s) PO daily No Start Date 07/03/2012 Inactive albuterol sulfate 2. 5 mg/0.5 mL solution for nebulization RxNorm: 319863 1 inhale INH Q4H as needed No Start Date 05/20/2014 Inactive metoclopramide 5 mg tablet RxNorm: 719611 1 Tablet(s) PO AC & H S prescribed in ER No Start Date 01/04/2018 Inactive amlodipine 5 mg Tab RxNorm: 996893 1 Tablet(s) PO daily No Start Date 03/07/2011 Inactive Namenda 5 mg Tab RxNorm: 580719 1 Tablet(s) PO daily No Start Date 06/23/2011 Inactive Zyrtec 10 mg tablet RxNorm: 4568069 1 Tablet(s) PO daily No Start Date 01/04/2018 Inactive Allergy Relief (ceti rizine) oral RxNorm: 563249 oral No S tart Date 12/19/2016 Inactive fluocinonide 0.05 % Ointment RxNorm: 080354 1 TOP BID PRN No Start Date 12/24/2013 Inactive amlodipine 5 mg tablet RxNorm: 252746 1 Tablet(s) PO daily No Start Date 09/01/2014 Inactive lisinopril Oral RxNorm: Oral No Start Date 12/08/2011 Inactive simvastatin 20 mg Tab RxNorm: 743651 1 Tablet(s) PO daily No Start Date 06/06/2014 Inactive Bentyl 20 mg Tab RxNorm: 687203 1 Tablet(s) PO Q6 PRN No Start Date 06/23/[address] Quintero Bentyl 10 mg Cap RxNorm: 342192 1 Capsule(s) PO BID No Start Date 06/22/2011 Inactive fluticasone 50 mcg/a ctuation nasal spray,suspension RxNorm: 9304619 1 [place] NASAL BID No Start Date 02/07/2018 Inactive Plavix 75 mg Tab RxNorm: 232657 1 Tablet(s) PO every other day No Start Date 08/24/2011 Inactive lorazepam 0.5 mg tablet RxNorm: 425760 1/2 Tablet(s) PO Q8 PRN No Start Date 02/01/2012 Inactive lisinopril 10 mg tablet RxNorm: 347094 1 Tablet(s) PO daily No Start Date 12/19/2011 Inactive Trulance 3 mg tablet RxNorm: 4905131 1 Tablet(s) PO QAM No Start Date 01/18/2018 Inactive Flomax 0.4 mg 24 hr Cap RxNorm: 269088 1 Capsule(s) PO daily No Start Date 05/28/2014 Inactive Aricept 5 mg Tab RxNorm: 351367 1 Tablet(s) PO daily No Start Date 07/13/2011 Inactive Vitamin D 1,000 unit Tab RxNorm: 955140 1 Tablet(s) PO daily No Start Date 01/04/2018 Inactive Levsin 0.125 mg tablet RxNorm: 2287725 1 Tablet(s) PO QID as needed FOR ABD REJI N No Start Date 11/04/2014 Inactive mirtazapine 7.5 mg t ablet RxNorm: 009292 1/2 Tablet(s) PO daily No Start Date 08/29/2013 Inactive Senior Vitamin Tab RxNorm: 1 Tablet(s) PO daily No Start Date 01/04/2018 Inactive Mobic 15 mg Tab RxNorm: 173206 1 Tablet(s) PO daily No Start Date 07/13/2011 Inactive Medication Administered Medication Codes Instruc tions Start Date Status Kenalog 40 mg/mL suspension for injection RxNorm: 9713003 Milliliter 11/25/2016 No longer Active Influenza Virus Vaccine 0.5 mL RxNorm: 02/06/2013 No longer Active ZOSTAVAX 19,400 unit Sub-Q Soln RxNo rm: [id number] 02/25/2011 No longer A ctive Pneumovax 23 25 mcg/0.5 mL Injection RxNorm: 720525 Milliliter 02/16/2011 No longer Active Influenza Virus [...] Ord15 CALCIUM 10.1 mg/dL 06/08/2018 Comp Metabolic Ief407 NA 143 mEq/L 04/10/2018 Comp Metabolic Etf477 K 3.8 mEq/L 04/10/2018 Comp Metabolic Dma609 CL 105 mEq/L 04/10/2018 Comp Metabolic Xmg623 CO2 30.0 mEq/L 04/10/2018 Comp Metabolic Rca752 AN ION GAP 12 04/10/2018 Comp Metabolic Zaf394 GL UCOSE 95 mg/dL 04/10/2018 Comp Metabolic Xiz087 Cr eat 1.2 mg/dL 04/10/2018 Comp Metabolic Ywk376 eG FR 60 ml/min/1.73m2 04/10 Comp Metabolic Zyu929 BUN 22 mg/dL 04/10/2018 Comp Metabolic Nto746 B/ C Ratio 18.2 Ratio 04/10/2018 Comp Metabolic Lmp617 CA LCIUM 10.3 mg/dL 04/10/2018 Comp Metabolic Rew663 AL K PHOS 113 U/L 04/10/2018 Comp Metabolic Jzh023 T(SGOT) 30 U/L 04/10/2018 Comp Metabolic Fgu696 AL T(SGPT) 19 U/L 04/10/2018 Comp Metabolic Wkt222 BI LI T 0.4 mg/dL 04/10/2018 Comp Metabolic Fdy879 AL BUMIN 4.2 g/dL 04/10/2018 Comp Metabolic Vyx526 TP RO 6.5 g/dL 04/10/2018 Comp Metabolic Bzu558 GL OB 2.3 g/dL 04/10/2018 Comp Metabolic Qee101 A/ G Ratio 1.8 Ratio 04/10/2018 Comp Metabolic Uwr815 Os mo 288 mOsmo 04/10/2018 Lipid Ord30 CHOL 133 mg/dL 04/10/2018 Lipid Ord30 HDL 49.0 mg/dl 04/10/2018 Lipid Ord30 TRIG 68 mg/dL 04/10/2018 Lipid Ord30 LDL 70 mg/dL 04/10/2018 Lipid Ord30 C/HDL 2.7 Ratio 04/10/2018 C RAP A SC [id number] Strep A Negative 01/13/2018 Comp Metabolic Hsg337 NA 134 mEq/L 10/07/2017 Comp Metabolic Zqb254 K 4.5 mEq/L 10/07/2017 Comp Metabolic Kfc478 CL 99 mEq/L 10/07/2017 Comp Metabolic Dbh601 CO2 31.0 mEq/L 10/07/2017 Comp Metabolic Ynw914 AN ION GAP 9 10/07/2017 Comp Metabolic Mkd566 GL UCOSE 82 mg/dL 10/07/2017 Comp Metabolic Tvq840 Cr eat 1.0 mg/dL 10/07/2017 Comp Metabolic Ocf662 eG FR 77 ml/min/1.73m2 10/07 Comp Metabolic Eer287 BUN 16 mg/dL 10/07/2017 Comp Metabolic Dkg037 B/ C Ratio 16.3 Ratio 10/07/2017 Comp Metabolic Zqk021 CA LCIUM 9.6 mg/dL 10/07/2017 Comp Metabolic Phs590 AL K PHOS 72 U/L 10/07/2017 Comp Metabolic Trb241 T(SGOT) 21 U/L 10/07/2017 Comp Metabolic Iie586 AL T(SGPT) 14 U/L 10/07/2017 Comp Metabolic Izq973 BI LI T 0.4 mg/dL 10/07/2017 Comp Metabolic Pap395 AL BUMIN 4.0 g/dL 10/07/2017 Comp Metabolic Czb491 TP RO 5.7 g/dL 10/07/2017 Comp Metabolic Wfm242 GL OB 1.7 g/dL 10/07/2017 Comp Metabolic Tys737 A/ G Ratio 2.4 Ratio 10/07/2017 Comp Metabolic Qle506 Os mo 269 mOsmo 10/07/2017 Lipid Ord30 CHOL 135 mg/dL 10/07/2017 Lipid Ord30 HDL 69.0 mg/dl 10/07/2017 Lipid Ord30 TRIG 52 mg/dL 10/07/2017 Lipid Ord30 LDL 56 mg/dL 10/07/2017 Lipid Ord30 C/HDL 2.0 Ratio 10/07/2017 %Hba1C Ouu748 % HbA1c 57750-3 5.5 % 09/12/2017 %Hba1C Veb953 Gluc Ave 111 mg/dL 09/12/2017 B12 Wri232 B12 816.00 pg/ml 09/10/2017 Test(s) Not Perfromed Test(s) Not Performed Test(s) Not Performed. See B elow: 09/09/2017 Test(s) Not Perfromed TEST NAME VIT D 09/09/2017 Test(s) Not Perfromed Rejection Reason NO PAYABLE DX 018 Test(s) Not Perfromed COMMENT PATIENT SAID HE WAS TAKING SUPPLEMENT 09/09/2017 Test(s) Not Perfromed [employer] Tello Almeida 018 Lipid Ord30 CHOL 134 mg/dL 04/11/2017 Lipid Ord30 HDL 63.0 mg/dl 04/11/2017 Lipid Ord30 TRIG 45 mg/dL 04/11/2017 Lipid Ord30 LDL 62 mg/dL 04/11/2017 Lipid Ord30 C/HDL 2.1 Ratio 04/11/2017 Tsh Ord6 hTSH II 2.07 uIU/mL 04/11/2017 Body Fluid Crystals Source RIGHT ELBOW 6 Body Fluid Crystals CRYSTALS, BODY FLUID 02/18/2016 Uric Acid Body Fluid 385448 URIC ACID-FLUID 4.3 mg/dL 02/18/2016 Metabolic Ord15 [...] Ord15 CALCIUM 9.1 mg/dL 02/05/2016 Comp Metabolic Fwa504 NA 129 mEq/L 10/08/2015 Comp Metabolic Vdq849 K 4.7 mEq/L 10/08/2015 Comp Metabolic Erx210 CL 98 mEq/L 10/08/2015 Comp Metabolic Orw526 CO2 28.0 mEq/L 10/08/2015 Comp Metabolic Jws555 AN ION GAP 8 10/08/2015 Comp Metabolic Bgv626 GL UCOSE 84 mg/dL 10/08/2015 Comp Metabolic Gnz485 Cr eat 1.3 mg/dL 10/08/2015 Comp Metabolic Csj394 eG FR 56 ml/min/1.73m2 10/07 Comp Metabolic Djk134 BUN 23 mg/dL 10/08/2015 Comp Metabolic Krv595 B/ C Ratio 17.8 Ratio 10/08/2015 Comp Metabolic Qnw413 CA LCIUM 9.3 mg/dL 10/08/2015 Comp Metabolic Pfh373 AL K PHOS 68 U/L 10/08/2015 Comp Metabolic Edx144 T(SGOT) 24 U/L 10/08/2015 Comp Metabolic Gto535 AL T(SGPT) 15 U/L 10/08/2015 Comp Metabolic Sni611 BI LI T 0.5 mg/dL 10/08/2015 Comp Metabolic Dhy082 AL BUMIN 4.0 g/dL 10/08/2015 Comp Metabolic Ahb537 TP RO 5.9 g/dL 10/08/2015 Comp Metabolic Smw518 GL OB 1.9 g/dL 10/08/2015 Comp Metabolic Sud245 A/ G Ratio 2.1 Ratio 10/08/2015 Comp Metabolic Hig310 Os mo 262 mOsmo 10/08/2015 Lipid Ord30 [...] Ord30 C/HDL 2.3 Ratio 05/07/2015 Comp Metabolic Txg076 NA 132 mEq/L 05/07/2015 Comp Metabolic Hiu603 K 4.4 mEq/L 05/07/2015 Comp Metabolic Oug110 CL 97 mEq/L 05/07/2015 Comp Metabolic Hoy830 CO2 30.0 mEq/L 05/07/2015 Comp Metabolic Cdm751 AN ION GAP 9 05/07/2015 Comp Metabolic Kei008 GL UCOSE 78 mg/dL 05/07/2015 Comp Metabolic Yne887 Cr eat 1.2 mg/dL 05/07/2015 Comp Metabolic Pli993 eG FR 60 ml/min/1.73m2 05/07 Comp Metabolic Myf075 BUN 25 mg/dL 05/07/2015 Comp Metabolic Kxx011 B/ C Ratio 20.3 Ratio 05/07/2015 Comp Metabolic Dog459 CA LCIUM 9.6 mg/dL 05/07/2015 Comp Metabolic Jwq668 AL K PHOS 70 U/L 05/07/2015 Comp Metabolic Vzu243 T(SGOT) 27 U/L 05/07/2015 Comp Metabolic Tfc612 AL T(SGPT) 20 U/L 05/07/2015 Comp Metabolic Hbz155 BI LI T 0.4 mg/dL 05/07/2015 Comp Metabolic Hog028 AL BUMIN 4.0 g/dL 05/07/2015 Comp Metabolic Yoq237 TP RO 5.8 g/dL 05/07/2015 Comp Metabolic Yht976 GL OB 1.8 g/dL 05/07/2015 Comp Metabolic Qmo878 A/ G Ratio 2.3 Ratio 05/07/2015 Comp Metabolic Zfg439 Os mo 268 mOsmo 05/07/2015 Cbc With [...] hTSH II 4.07 uIU/mL 05/07/2015 Comp Metabolic Lxm148 NA 134 mEq/L 12/10/2014 Comp Metabolic Hyz841 K 4.8 mEq/L 12/10/2014 Comp Metabolic Twg671 CL 101 mEq/L 12/10/2014 Comp Metabolic Esu487 CO2 30.0 mEq/L 12/10/2014 Comp Metabolic Tbu404 AN ION GAP 8 12/10/2014 Comp Metabolic Dcm095 GL UCOSE 85 mg/dL 12/10/2014 Comp Metabolic Jeh068 Cr eat 1.2 mg/dL 12/10/2014 Comp Metabolic Cdl969 eG FR 65 ml/min/1.73m2 12/10 Comp Metabolic Riy069 BUN 25 mg/dL 12/10/2014 Comp Metabolic Euz624 B/ C Ratio 21.7 Ratio 12/10/2014 Comp Metabolic Lyr049 CA LCIUM 9.5 mg/dL 12/10/2014 Comp Metabolic Ikj379 AL K PHOS 76 U/L 12/10/2014 Comp Metabolic Zvn103 T(SGOT) 27 U/L 12/10/2014 Comp Metabolic Mpp008 AL T(SGPT) 18 U/L 12/10/2014 Comp Metabolic Ldn319 BI LI T 0.5 mg/dL 12/10/2014 Comp Metabolic Ith893 AL BUMIN 4.1 g/dL 12/10/2014 Comp Metabolic Jwm191 TP RO 5.7 g/dL 12/10/2014 Comp Metabolic Cqj159 GL OB 1.6 g/dL 12/10/2014 Comp Metabolic Onw963 A/ G Ratio 2.6 Ratio 12/10/2014 Comp Metabolic Yje586 Os mo 272 mOsmo 12/10/2014 B12 Ceg073 B12 1011.00 pg/ml 12/10/2014 Lipid Ord30 CHOL [...] Differential Ord2 RDW 14.3 % 12/10/2014 CBC 9123549 WBC 4.1 10e9/L 02/19/2013 CBC 2226248 RBC 4.39 10e12/L 02/19/2013 CBC 5861155 HGB 14.1 g/dL 02/19/2013 CBC 2264538 HCT DET 41.0 % 02/19/2013 CBC 5329971 MCV 93.4 fL 02/19/2013 CBC 5076321 MCH 32.1 pg 02/19/2013 CBC 6155830 MCHC 34.4 g/dL 02/19/2013 CBC 3989936 PLT 151 10e9/L 02/19/2013 CBC 8530150 MPV 11.8 fL 02/19/2013 CBC 4756689 YOVANNY % 63.2 % 02/19/2013 CBC 1170667 LY % 22.9 % 02/19/2013 CBC 4596610 MON % 11.5 % 02/19/2013 CBC 6584063 EOS % 2.2 % 02/19/2013 CBC 2300220 BASO % 0.2 % 02/19/2013 CBC 1186774 RDW 13.8 % 02/19/2013 CBC 2730255 ABS YOVANNY 2.59 10e9/L 02/19/2013 CBC 0082891 ABS LYMPH 0.94 10e9/L 02/19/2013 CBC 9445827 ABS MONO 0.47 10e9/L 02/19/2013 CBC 2947703 ABS EOS 0.09 10e9/L 02/19/2013 CBC 7407168 ABS BASO 0.01 10e9/L 02/19/2013 CBC 0157220 RDW-SD 46.0 fL 02/19/2013 TSH 1754144 TSH 2.094 uIU/ML 02/19/2013 FREE T4 7804925 FREE T4 1.18 NG/DL 02/19/2013 GFR CALC 6595155 GFR AA >60 ML/MIN 02/19/2013 GFR CALC 8679148 GFR NON -AA >60 ML/MIN 02/19/2013 CHEM 14 9278445 AST 30 U/L 02/19/2013 CHEM 14 5806696 ALT 19 IU/L 02/19/2013 CHEM 14 2568111 BUN 21 MG/DL 02/19/2013 CHEM 14 4687210 ALBUMIN 4.4 GM/DL 02/19/2013 CHEM 14 8560786 CHLORIDE 94 MMOL/L 02/19/2013 CHEM 14 7907513 BILI TOT 0.5 MG/DL 02/19/2013 CHEM 14 7747276 ALK PHOS 75 U/L 02/19/2013 CHEM 14 0251312 SODIUM 133 MMOL/L 02/19/2013 CHEM 14 6729785 CREATINI NE 1.07 MG/DL 02/19/2013 CHEM 14 3317907 CALCIUM 9.6 MG/DL 02/19/2013 CHEM 14 9809632 POTASSIUM 4.6 MMOL/L 02/19/2013 CHEM 14 3269377 PROT TOT 6.1 GM/DL 02/19/2013 CHEM 14 0427995 GLUCOSE 94 MG/DL 02/19/2013 CHEM 14 4444023 BICARB 31 MMOL/L 02/19/2013 CHEM 14 1685169 ANION GAP 8 MEQ/L 02/19/2013 UA 56097 Specific [place] 1.015 DateTime(Free Text in Aprima ) UA 16958 PH 6 DateTime(Free Text in Aprima ) UA 24860 GLUCOSE neg DateTime(Free Text in Apr ) UA 31788 Protein neg DateTime(Free Text in ) UA 88660 Blood neg DateTime(Free Text in ) UA 63217 Bilirubin neg DateTime(Free Text in Apr ) UA 88499 Ketones neg DateTime(Free Text in ) UA 25510 Urobilinogen neg DateTime(Free Text in ) UA 13525 Nitrite neg DateTime(Free Text in ) UA 91594 Leukocytes neg DateTime(Free Text in ) Review [...] No mental status change 12/01/2016 Psychiatric anxiety 07/10/2016 Constitutional recent illness 11/25/2016 Constitutional No chills [...] atraumatic 06/18/2013 None Full Exam - General 1995 [...] affect 06/18/2013 None Full Exam - General 1995 Constitutional general appearance Overall: well developed 04/04/2013 [...] masses 02/19/2013 None Full Exam - General 1995 Respiratory auscultation Overall: breath sounds clear bilaterally 02/19/2013 None Full Exam - General 1995 Respiratory respiratory effort/rhythm Overall: no retractions 02/19/2013 [...] flat 01/15/2011 None Full Exam - General 1995 Constitutional general appearance Overall: well nourished 01/06/2011 [...] VACC PRSV FREE I NC ANTIG CPT-4: 24417 02/08/2018 URINALYSIS NONAUTO W /O SCOPE CPT-4: 69472 09/26/2017 ADMIN INFLUENZA VIRU S VAC CPT-4: G0008 01/25/2017 FLU VACC PRSV FREE I NC ANTIG CPT-4: 28968 01/25/2017 THER/PROPH/DIAG INJ SC/IM CPT-4: 69345 11/25/2016 TRIAMCINOLONE ACET I [place] NOS CPT-4: J3301 11/25/2016 DRAIN/INJECT JOINT/B URSA CPT-4: 68867 02/17/2016 IMMUNIZATION ADMIN CPT- 4: 55216 05/06/2015 PNEUMOCOCCAL VACC 13 TIFFANIE IM Formatting Model/CDA Sections, Assigned to/Celia Minaya SNOMED CT: 78214024 CPT-4: 72933Mqdpctt 05/06/2015 ADMIN INFLUENZA VIRU S VAC CPT-4: G0008 02/19/2015 FLU VACC 4 TIFFANIE 3 YRS PLUS IM Formatting Model/CDA Sections, Assigned to SNOMED CT: [id number] CPT-4: 32081Lfhlfso 02/19/2015 URINALYSIS NONAUTO W /O SCOPE CPT-4: 16162 05/23/2014 ADMIN INFLUENZA VIRU S VAC CPT-4: G0008 03/26/2014 FLU VAC NO PRSV 4 VA L 3 YRS+ Assigned to/Celia Minaya CPT-4: 34358Czprler 03/26/2014 PRESCRIP TRANSMIT A ERX SY CPT-4: G8553 04/04/2013 ROUTINE VENIPUNCTURE CPT-4: 10064 02/19/2013 ADMIN INFLUENZA VIRU S VAC CPT-4: G0008 02/06/2013 FLULAVAL VACC, 3 YRS & >, IM CPT-4: Q2036 02/06/2013 [id number] EST. PATIENT, LEVEL IV CPT-4: 36101 06/19/2012 PRESCRIP TRANSMIT A ERX SY CPT-4: G8553 06/19/2012 PRESCRIP TRANSMIT A ERX SY CPT-4: G8553 03/20/2012 PRESCRIP TRANSMIT A ERX SY CPT-4: G8553 06/23/2011 IMMUNIZATION ADMIN CPT- 4: 74948 02/25/2011 ZOSTER VACC SC (Maria E stephens, patient supplied vaccine) CPT-4: 79762ZF 02/25/2011 ADMIN PNEUMOCOCCAL V ACCINE SNOMED CT: 23846576 CPT-4: G0009 02/16/2011 Pneumococcal Polysac charide Vaccine, 23-Valent, Ad CPT-4: 52207 02/16/2011 ADMIN INFLUENZA VIRU S VAC CPT-4: G0008 02/09/2011 FLULAVAL VACC, 3 YRS & >, IM CPT-4: Q2036 02/09/2011 PRESCRIP TRANSMIT A ERX SY CPT-4: G8553 02/01/2011 URINALYSIS NONAUTO W /O SCOPE CPT-4: 98550 01/27/2011 Vital Signs Date Vital 05/18/2018 Blood Pressure 1: 142/64 Code: 8480-6 BMI: 19.9 Code: 03842-8 Heart Rate 1: 52 bpm Height: 5'9" SpO2: 98% Weight: 135 lbs 04/13/2018 Blood Pressure 1: 128/58 Code: 8480-6 BMI: 21.0 Code: 07541-1 Heart Rate 1: 83 bpm Height: 5'9" SpO2: 94% Weight: 142 lbs 02/08/2018 Blood Pressure 1: 136/76 Code: 8480-6 BMI: 19.9 Code: 78128-4 Heart Rate 1: 78 bpm Height: 5'9" SpO2: 99% Weight: 135 lbs 01/19/2018 Blood Pressure 1: 114/78 Code: 8480-6 BMI: 19.9 Code: 37859-7 Heart Rate 1: 80 bpm Height: 5'9" SpO2: 98% Weight: 135 lbs 01/12/2018 Blood Pressure 1: 130/78 Code: 8480-6 BMI: 19.8 Code: 01257-7 Heart Rate 1: 85 bpm Height: 5'9" SpO2: 97% Weight: 134 lbs 01/05/2018 Blood Pressure 1: 122/70 Code: 8480-6 BMI: 19.6 Code: 47949-7 Heart Rate 1: 87 bpm Height: 5'9" SpO2: 96% Weight: 133 lbs 11/14/2017 Blood Pressure 1: 130/70 Code: 8480-6 BMI: 19.5 Code: 51073-2 Heart Rate 1: 75 bpm Height: 5'9" SpO2: 98% Weight: 132 lbs 2017 Blood Pressure 1: 116/70 Code: 8480-6 BMI: 19.5 Code: 52867-9 Heart Rate 1: 55 bpm Height: 5'9" SpO2: 95% Weight: 132 lbs 10/13/2017 Blood Pressure 1: 130/70 Code: 8480-6 BMI: 19.3 Code: 05404-6 Heart Rate 1: 67 bpm Height: 5'9" SpO2: 98% Weight: 131 lbs 09/26/2017 Blood Pressure 1: 126/70 Code: 8480-6 BMI: 19.1 Code: 01337-2 Heart Rate 1: 66 bpm Height: 5'9" SpO2: 100% Weight: 129 lbs 8 oz 09/12/2017 Blood Pressure 1: 120/70 Code: 8480-6 BMI: 19.5 Code: 28025-5 Heart Rate 1: 83 bpm Height: 5'9" SpO2: 99% Weight: 132 lbs 09/09/2017 Blood Pressure 1: 126/70 Code: 8480-6 BMI: 19.3 Code: 13348-1 Heart Rate 1: 80 bpm Height: 5'9" SpO2: 98% Weight: 131 lbs 08/17/2017 Blood Pressure 1: 130/74 Code: 8480-6 BMI: 19.6 Code: 72154-5 Heart Rate 1: 72 bpm Height: 5'9" SpO2: 98% Weight: 133 lbs 07/20/2017 Blood Pressure 1: 124/62 Code: 8480-6 BMI: 19.8 Code: 64425-1 Heart Rate 1: 65 bpm Height: 5'9" SpO2: 96% Weight: 134 lbs 07/01/2017 Blood Pressure 1: 134/64 Code: 8480-6 BMI: 21.0 Code: 90270-5 Height: 5'9" Weight: 142 lbs 06/21/2017 Blood Pressure 1: 142/80 Code: 8480-6 BMI: 21.0 Code: 12856-2 Heart Rate 1: 63 bpm Height: 5'9" SpO2: 98% Weight: 142 lbs 03/21/2017 Blood Pressure 1: 128/66 Code: 8480-6 BMI: 20.8 Code: 51394-1 Heart Rate 1: 61 bpm Height: 5'9" SpO2: 98% Weight: 141 lbs 03/08/2017 Blood Pressure 1: 134/68 Code: 8480-6 BMI: 20.4 Code: 53023-4 Heart Rate 1: 56 bpm Height: 5'9" SpO2: 99% Weight: 138 lbs 01/25/2017 Blood Pressure 1: 98/62 Code: 8480-6 BMI: 20.6 Code: 46096-6 Heart Rate 1: 71 bpm Height: 5'9" SpO2: 97% Weight: 139 lbs 8 oz 12/20/2016 Blood Pressure 1: 120/68 Code: 8480-6 BMI: 20.4 Code: 35658-0 Heart Rate 1: 70 bpm Height: 5'9" [...] 1: 120/60 Code: 8480-6 BMI: 20.7 Code: 97040-1 Heart Rate 1: 74 bpm Height: 5'9" SpO2: 95% Weight: 140 lbs 08/23/2016 Blood Pressure 1: 118/68 Code: 8480-6 BMI: 20.8 Code: 13550-0 Heart Rate 1: 54 bpm Height: 5'9" SpO2: 97% Weight: 141 lbs 04/26/2016 Blood Pressure 1: 108/64 Code: 8480-6 BMI: 21.0 Code: 94397-3 Heart Rate 1: 62 bpm Height: 5'9" SpO2: 95% Weight: 142 lbs 02/17/2016 Blood Pressure 1: 138/80 Code: 8480-6 BMI: 20.2 Code: 59373-2 Heart Rate 1: 76 bpm Height: 5'9" SpO2: 97% Weight: 137 lbs 02/09/2016 Blood Pressure 1: 140/76 Code: 8480-6 BMI: 20.2 Code: 85883-3 Heart Rate 1: 72 bpm Height: 5'9" SpO2: 96% Weight: 137 lbs 02/03/2016 Blood Pressure 1: 136/80 Code: 8480-6 BMI: 20.7 Code: 45022-1 Heart Rate 1: 86 bpm Height: 5'9" SpO2: 96% Weight: 140 lbs 01/26/2016 Blood Pressure 1: 144/78 Code: 8480-6 BMI: 20.7 Code: 69241-5 Heart Rate 1: 73 bpm Height: 5'9" SpO2: 97% Temperature: 37.0 (C ) / 98.6 (F) Weight: 140 lbs 01/21/2016 Blood Pressure 1: 116/62 Code: 8480-6 BMI: 20.4 Code: 64929-2 Heart Rate 1: 66 bpm Height: 5'9" SpO2: 97% Weight: 138 lbs 12/29/2015 Blood Pressure 1: 130/74 Code: 8480-6 BMI: 20.4 Code: 03445-5 Heart Rate 1: 51 bpm Height: 5'9" SpO2: 98% Weight: 138 lbs 09/02/2015 Blood Pressure 1: 126/60 Code: 8480-6 BMI: 22.3 Code: 08716-7 Heart Rate 1: 55 bpm Height: 5'9" SpO2: 96% Weight: 151 lbs 05/06/2015 Blood Pressure 1: 132/72 Code: 8480-6 BMI: 21.0 Code: 47472-2 Heart Rate 1: 63 bpm Height: 5'9" SpO2: 97% Weight: 142 lbs 03/05/2015 Blood Pressure 1: 130/68 Code: 8480-6 BMI: 21.0 Code: 36722-6 Heart Rate 1: 61 bpm Height: 5'9" SpO2: 96% Weight: 142 lbs 12/04/2014 Blood Pressure 1: 122/64 Code: 8480-6 BMI: 21.3 Code: 04655-6 Heart Rate 1: 72 bpm Height: 5'9" Weight: 144 lbs 09/24/2014 Blood Pressure 1: 142/80 Code: 8480-6 BMI: 20.4 Code: 45836-7 Heart Rate 1: 80 bpm Height: 5'9" Weight: 138 lbs 09/09/2014 Blood Pressure 1: 122/74 Code: 8480-6 BMI: 20.5 Code: 27411-8 Heart Rate 1: 64 bpm Height: 5'9" Weight: 139 lbs 07/26/2014 Blood Pressure 1: 136/82 Code: 8480-6 BMI: 20.4 Code: 78254-7 Heart Rate 1: 87 bpm Height: 5'9" SpO2: 92% Weight: 138 lbs 07/10/2014 Blood Pressure 1: 130/74 Code: 8480-6 BMI: 21.1 Code: 23783-1 Heart Rate 1: 64 bpm Height: 5'9" Weight: 143 lbs 06/06/2014 Blood Pressure 1: 142/88 Code: 8480-6 BMI: 20.4 Code: 25666-6 Heart Rate 1: 68 bpm Height: 5'9" Weight: 138 lbs 05/29/2014 Blood Pressure 1: 108/72 Code: 8480-6 BMI: 20.5 Code: 19915-3 Heart Rate 1: 60 bpm Height: 5'9" Weight: 139 lbs 05/20/2014 Blood Pressure 1: 140/72 Code: 8480-6 BMI: 21.6 Code: 11510-4 Heart Rate 1: 60 bpm Height: 5'9" SpO2: 98% Temperature: 36.2 (C ) / 97.2 (F) Weight: 146 lbs 03/25/2014 Blood Pressure 1: 128/60 Code: 8480-6 BMI: 21.4 Code: 98297-1 Heart Rate 1: 62 bpm Height: 5'9" Weight: 145 lbs 02/08/2014 Blood Pressure 1: 136/82 Code: 8480-6 BMI: 21.3 Code: 49201-0 Heart Rate 1: 68 bpm Height: 5'9" Weight: 144 lbs 12/24/2013 Blood Pressure 1: 122/76 Code: 8480-6 BMI: 21.6 Code: 71023-0 Heart Rate 1: 58 bpm Height: 5'9" Weight: 146 lbs 11/20/2013 Blood Pressure 1: 112/62 Code: 8480-6 BMI: 20.7 Code: 30343-0 Heart Rate 1: 56 bpm Height: 5'9" Weight: 140 lbs 10/30/2013 Blood Pressure 1: 130/68 Code: 8480-6 BMI: 20.1 Code: 98973-2 Heart Rate 1: 68 bpm Height: 5'9" SpO2: 96% Weight: 136 lbs 10/08/2013 Blood Pressure 1: 128/72 Code: 8480-6 BMI: 20.8 Code: 45878-6 Heart Rate 1: 60 bpm Height: 5'9" Temperature: 36.6 (C ) / 97.8 (F) Weight: 141 lbs 06/18/2013 Blood Pressure 1: 124/78 Code: 8480-6 BMI: 20.8 Code: 85822-7 Heart Rate 1: 64 bpm Height: 5'9" Weight: 141 lbs 04/04/2013 Blood Pressure 1: 138/60 Code: 8480-6 BMI: 20.8 Code: 16783-1 Heart Rate 1: 56 bpm Height: 5'9" Weight: 141 lbs 02/19/2013 Blood Pressure 1: 152/74 Code: 8480-6 BMI: 21.0 Code: 54853-6 Heart Rate 1: 60 bpm Height: 5'9" Weight: 142 lbs 10/16/2012 Blood Pressure 1: 122/70 Code: 8480-6 BMI: 20.8 Code: 45835-7 Heart Rate 1: 64 bpm Height: 5'9" Weight: 141 lbs 06/19/2012 Blood Pressure 1: 120/72 Code: 8480-6 BMI: 21.1 Code: 41653-0 Heart Rate 1: 60 bpm Height: 5'9" Weight: 143 lbs 03/20/2012 Blood Pressure 1: 114/76 Code: 8480-6 Heart Rate 1: 60 bpm Respiratory Rate: 16 bpm Weight: 143 lbs 01/24/2012 Blood Pressure 1: 134/70 Code: 8480-6 Heart Rate 1: 64 bpm Weight: 143 lbs 12/20/2011 Blood Pressure 1: 98/72 Code: 8480-6 BMI: 21.1 Code: 26701-6 Heart Rate 1: 60 bpm Height: 5'9" Respiratory Rate: 16 bpm Weight: 143 lbs 12/09/2011 Blood Pressure 1: 110/60 Code: 8480-6 Heart Rate 1: 66 bpm SpO2: 98% Weight: 141 lbs 08/25/2011 Blood Pressure 1: 112/70 Code: 8480-6 BMI: 20.8 Code: 85774-8 Heart Rate 1: 54 bpm Height: 5'9" Respiratory Rate: 16 bpm Weight: 141 lbs 06/23/2011 Blood Pressure 1: 126/64 Code: 8480-6 Heart Rate 1: 60 bpm Respiratory Rate: 16 bpm Weight: 142 lbs 04/19/2011 Blood Pressure 1: 124/64 Code: 8480-6 BMI: 21.1 Code: 73806-0 Heart Rate 1: 64 bpm Height: 5'9" Respiratory Rate: 16 bpm Weight: 143 lbs 03/23/2011 Blood Pressure 1: 137/71 Code: 8480-6 Heart Rate 1: 57 bpm 03/08/2011 Blood Pressure 1: 154/70 Code: 8480-6 BMI: 20.8 Code: 83890-6 Heart Rate 1: 60 bpm Height: 5'9" Respiratory Rate: 16 bpm Weight: 141 lbs 03/01/2011 Blood Pressure 1: 178/80 Code: 8480-6 Blood Pressure 2: 168/70 Code: 8480-6 BMI: 24.1 Code: 61126-4 Heart Rate 1: 60 bpm Height: 5'9" Respiratory Rate: 16 bpm Weight: 163 lbs 02/01/2011 Blood Pressure 1: 162/84 Code: 8480-6 Heart Rate 1: 60 bpm Respiratory Rate: 16 bpm Weight: 144 lbs 01/27/2011 Blood Pressure 1: 138/54 Code: 8480-6 BMI: 21.1 Code: 58593-3 Heart Rate 1: 68 bpm Height: 5'9" Respiratory Rate: 16 bpm Weight: 143 lbs 01/26/2011 Blood Pressure 1: 148/86 Code: 8480-6 BMI: 21.3 Code: 71719-8 Heart Rate 1: 74 bpm Height: 5'9" Weight: 144 lbs 01/15/2011 Blood Pressure 1: 136/76 Code: 8480-6 BMI: 20.5 Code: 76238-8 Heart Rate 1: 70 bpm Height: 5'10" Weight: 141 lbs 01/06/2011 Blood Pressure 1: 148/72 Code: 8480-6 BMI: 20.2 Code: 73272-8 Heart Rate 1: 72 bpm Height: 5'10" [...] Findings Denies weakness 12/09/2011 None hypertension Quality [facility] 08/25/2011 None hypertension Onset and [...] s cardiac disease 08/25/2011 None hypertension Quality [facility] 06/23/2011 None hypertension Onset and [...] Encounters Encounter Performer Loca tion Codes Date ([id number]) [id number] EST. 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 P ATIENT, LEVEL III Diagnosis: Essential (primary) hypertension[ICD10: I10] Ale Carlos MD, [facility] CPT-4: 82909 04/13/2018 [id number] 08898 EST. P ATIENT, LEVEL IV Diagnosis: Irritable bowel syndrome with constipation[ICD10: K58.1] Diagnosis: Other lesions of oral mucosa[ICD10: K13.79] Diagnosis: Dry mouth, unspecified[ICD10: R68.2] Diagnosis: Encounter for immunization[ICD10: Z23] Diagnosis: Essential (primary) hypertension[ICD10: I10] Ale Carlos MD, C CPT-4: 07434 02/08/2018 ([id number]) [id number] EST. P ATIENT, LEVEL III Diagnosis: Slow transit constipation[ICD10: K59.01] Diagnosis: Dry mouth, unspecified[ICD10: R68.2] Nelly Carlos MD, [facility] CPT-4: 52441 01/19/2018 ([id number]) Miscellaneou s no charge Diagnosis: Acute pharyngitis, unspecified[ICD10: J02.9] Nelly Carlos MD, [facility] CPT-4: 60011 01/13/2018 ([id number]) [id number] EST. P ATIENT, LEVEL III Diagnosis: Candidal stomatitis[ICD10: B37.0] Diagnosis: Cough[ICD10: R05] Nelly Carlos MD, [facility] CPT-4: 67675 01/12/2018 ([id number]) 96746 EST. 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 P ATIENT, LEVEL IV Diagnosis: Irritable bowel syndrome with constipation[ICD10: K58.1] Diagnosis: Malignant neoplasm of prostate[ICD10: C61] Ale Carlos MD, C CPT-4: 11713 11/14/2017 [id number] EST. PATIENT, LEVEL IV Diagnosis: Slow transit constipation[ICD10: K59.01] Diagnosis: Gastro-esophageal reflux disease without esophagitis[ICD10: K21.9] Ruchi Carlos MD, [facility] CPT-4: 93950 2017 ([id number]) 67211 EST. P ATIENT, LEVEL IV Diagnosis: Essential (primary) hypertension[ICD10: I10] Diagnosis: Slow transit constipation[ICD10: K59.01] Diagnosis: Underweight[ICD10: R63.6] Diagnosis: Gastro-esophageal reflux disease without esophagitis[ICD10: K21.9] Ale Carlos MD, [facility] CPT-4: 76144 10/13/2017 ([id number]) 09165 EST. P ATIENT, LEVEL IV Diagnosis: Slow transit constipation[ICD10: K59.01] Diagnosis: Gastroparesis[ICD10: K31.84] Diagnosis: Gastro-esophageal reflux disease without esophagitis[ICD10: K21.9] Diagnosis: Dysuria[ICD10: R30.0] Ale Carlos MD, [facility] CPT-4: 44266 09/26/2017 ([id number]) 11029 EST. P ATIENT, LEVEL IV Diagnosis: Other abnormal glucose[ICD10: R73.09] Diagnosis: Slow transit constipation[ICD10: K59.01] Ale Carlos MD, [facility] CPT-4: 99027 09/12/2017 75423 EST. PATIENT, LEVEL III Diagnosis: Other fatigue[ICD10: R53.83] Ruchi Carlos MD, [facility] CPT-4: 10222 09/09/2017 ([id number]) 23506 EST. P ATIENT, LEVEL IV Diagnosis: Slow transit constipation[ICD10: K59.01] Diagnosis: Irritable bowel syndrome with constipation[ICD10: K58.1] Diagnosis: Essential (primary) hypertension[ICD10: I10] Ale Carlos MD, C CPT-4: 21992 08/17/2017 ([id number]) 07915 EST. P ATIENT, LEVEL III Diagnosis: Slow transit constipation[ICD10: K59.01] Diagnosis: Gastroparesis[ICD10: K31.84] Ale Carlos MD, [facility] CPT-4: 92693 07/20/2017 72139 EST. PATIENT, LEVEL III Diagnosis: Irritable bowel syndrome with constipation[ICD10: K58.1] Ruchi Carlos MD, [facility] CPT-4: 42690 07/01/2017 ([id number]) 68098 EST. P ATIENT, LEVEL IV Diagnosis: Essential (primary) hypertension[ICD10: I10] Diagnosis: Gas pain[ICD10: R14.1] Diagnosis: Generalized anxiety disorder[ICD10: F41.1] Diagnosis: Cervicalgia[ICD10: M54.2] Diagnosis: Pain in thoracic spine[ICD10: M54.6] Diagnosis: Unsteadiness on feet[ICD10: R26.81] Ale Carlos MD, [facility] CPT- 4: 53718 06/21/2017 ([id number]) 42915 EST. P ATIENT, LEVEL III Diagnosis: Essential (primary) hypertension[ICD10: I10] Ale aCrlos MD, C CPT-4: 87857 03/21/2017 37264 EST. PATIENT, LEVEL III Diagnosis: Other allergic rhinitis[ICD10: J30.89] Nelly Carlos MD, [facility] CPT-4: 48045 03/08/2017 ([id number]) 87467 EST. P ATIENT, LEVEL III Diagnosis: Encounter for immunization[ICD10: Z23] Diagnosis: Other hypotension[ICD10: I95.89] Ale Carlos MD, [facility] CPT-4: [address] 01/25/2017 ([id number]) 11644 EST. P ATIENT, LEVEL III Diagnosis: Essential (primary) hypertension[ICD10: I10] Diagnosis: Acute recurrent maxillary sinusitis[ICD10: J01.01] Ale Carlos MD, C CPT-4: 71423 12/20/2016 ([id number]) 81572 EST. P ATIENT, LEVEL III Diagnosis: Acute recurrent ethmoidal sinusitis[ICD10: J01.21] Ale Carlos MD, C CPT-4: 92502 12/01/2016 ([id number]) 66344 EST. P ATIENT, LEVEL III Diagnosis: Bronchitis, not specified as acute or chronic[ICD10: J40] Diagnosis: Cough[ICD10: R05] Ale Carlos MD, [facility] CPT-4: 76039 11/25/2016 ([id number]) 30060 EST. P ATIENT, LEVEL III Diagnosis: Cough[ICD10: R05] Diagnosis: Bronchitis, not specified as acute or chronic[ICD10: J40] Diagnosis: Candidal esophagitis[ICD10: B37.81] Ale Carlos MD, [facility] CPT- 4: 55715 11/18/2016 ([id number]) 57375 EST. P ATIENT, LEVEL IV Diagnosis: Essential (primary) hypertension[ICD10: I10] Diagnosis: Mild cognitive impairment, so stated[ICD10: G31.84] Ale Carlos MD, [facility] CPT-4: 05940 08/23/2016 ([id number]) 83137 EST. P ATIENT, LEVEL III Diagnosis: Essential (primary) hypertension[ICD10: I10] Ale Carlos MD, [facility] CPT-4: 49076 04/26/2016 ([id number]) Miscellaneou s no charge Diagnosis: Olecranon bursitis, right elbow[ICD10: M70.21] Nelly Carlos MD, [facility] CPT-4: 30898 02/09/2016 ([id number]) 65259 EST. P ATIENT, LEVEL III Diagnosis: Olecranon bursitis, right elbow[ICD10: M70.21] Nelly Carlos MD, [facility] CPT-4: 43868 02/03/2016 ([id number]) 37559 EST. P ATIENT, LEVEL III Diagnosis: Generalized abdominal tenderness[ICD10: R10.817] Ale Carlos MD, [facility] CPT-4: 47231 01/26/2016 12496 EST. PATIENT, LEVEL IV Diagnosis: Other allergic rhinitis[ICD10: J30.89] Ruchi Carlos MD, [facility] CPT-4: 00383 01/21/2016 ([id number]) 17265 EST. P ATIENT, LEVEL IV Diagnosis: Essential (primary) hypertension[ICD10: I10] Diagnosis: Hypo-osmolality and hyponatremia[ICD10: E87.1] Ale Carlos MD, [facility] CPT-4: 15704 12/29/2015 ([id number]) 70703 EST. P ATIENT, LEVEL IV Diagnosis: Essential (primary) hypertension[ICD10: I10] Diagnosis: Mild cognitive impairment, so stated[ICD10: G31.84] Ale Carlos MD, [facility] CPT-4: 27470 09/02/2015 ([id number]) 63727 EST. P ATIENT, LEVEL IV Diagnosis: Mixed hyperlipidemia[ICD10: E78.2] Diagnosis: Generalized anxiety disorder[ICD10: F41.1] Diagnosis: Mild cognitive impairment, so stated[ICD10: G31.84] Diagnosis: Essential (primary) hypertension[ICD10: I10] Diagnosis: Encounter for immunization[ICD10: Z23] Ale Carlos MD, [facility] CPT-4: 95755 05/06/2015 ([id number]) 73966 EST. 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 P ATIENT, LEVEL IV Diagnosis: ESSENTIAL HYPERTENSION[ICD9: 401.9] Diagnosis: GENERALIZED ANXIETY DISEASE[ICD9: 300.02] Diagnosis: MILD COGNITIVE IMPAIREMT[ICD9: 331.83] Diagnosis: IRRITABLE COLON[ICD9: 564.1] Ale Carlos MD, [facility] CPT-4: 16370 12/04/2014 ([id number]) 42950 EST. P ATIENT, LEVEL IV Diagnosis: Abdominal pain[ICD9: 789.00] Diagnosis: GENERALIZED ANXIETY DISEASE[ICD9: 300.02] Diagnosis: Hyponatremia[ICD9: 276.1] Diagnosis: ESSENTIAL HYPERTENSION[ICD9: 401.9] Nelly Carlos MD, [facility] CPT-4: 71437 09/24/2014 ([id number]) 45700 EST. P ATIENT, LEVEL IV Diagnosis: ESSENTIAL HYPERTENSION[ICD9: 401.9] Diagnosis: Osteoarthritis[ICD9: 715.90] Diagnosis: Mild cognitive impairment with memory loss[ICD9: 331.83] Ale Carlos MD, [facility] CPT-4: 58555 09/09/2014 ([id number]) 20007 EST. P ATIENT, LEVEL III Diagnosis: GENERALIZED ANXIETY DISEASE[ICD9: 300.02] Diagnosis: Depression[ICD9: 311] Ale Carlos MD, [facility] CPT-4: 19018 07/26/2014 ([id number]) 35614 EST. P ATIENT, LEVEL IV Diagnosis: ESSENTIAL HYPERTENSION[ICD9: 401.9] Diagnosis: GENERALIZED ANXIETY DISEASE[ICD9: 300.02] Diagnosis: MILD COGNITIVE IMPAIREMT[ICD9: 331.83] Ael Carlos MD, [facility] CPT-4: 18195 07/10/2014 ([id number]) 53836 EST. P ATIENT, LEVEL IV Diagnosis: Dizziness[ICD9: 780.4] Diagnosis: GENERALIZED ANXIETY DISEASE[ICD9: 300.02] Diagnosis: Depression[ICD9: 311] Diagnosis: ESSENTIAL HYPERTENSION[ICD9: 401.9] Diagnosis: Urinary frequency[ICD9: 788.41] Ale Carlos MD, [facility] CPT-4: 98200 06/06/2014 ([id number]) 08772 EST. P ATIENT, LEVEL IV Diagnosis: ESSENTIAL HYPERTENSION[ICD9: 401.9] Diagnosis: GENERALIZED ANXIETY DISEASE[ICD9: 300.02] Diagnosis: Mild cognitive impairment with memory loss[ICD9: 331.83] Ale Carlos MD, [facility] CPT-4: 49634 05/29/2014 ([id number]) 03190 EST. P ATIENT, LEVEL IV Diagnosis: Pneumonia[ICD9: 486] Diagnosis: COUGH[ICD9: 786.2] Diagnosis: Hyponatremia[ICD9: 276.1] Diagnosis: ALLERGIC RHINITIS[ICD9: 477.9] Ale Carlos MD, [facility] CPT-4: 52838 05/20/2014 ([id number]) 29641 EST. P ATIENT, LEVEL III Diagnosis: ESSENTIAL HYPERTENSION[ICD9: 401.9] Diagnosis: Cough[ICD9: 786.2] Ale Carlos MD, [facility] CPT-4: 81979 03/25/2014 ([id number]) 71983 EST. P ATIENT, LEVEL III Diagnosis: COUGH[ICD9: 786.2] Diagnosis: ALLERGIC RHINITIS[ICD9: 477.9] Nelly Carlos MD, [facility] CPT- 4: 56772 02/08/2014 ([id number]) 47422 EST. P ATIENT, LEVEL III Diagnosis: ESSENTIAL HYPERTENSION[ICD9: 401.9] Diagnosis: Nasal congestion[ICD9: 478.19] Ale Carlos MD, [facility] CPT-4: 23051 12/24/2013 ([id number]) 58269 EST. P ATIENT, LEVEL III Diagnosis: Seasonal allergies[ICD9: 477.9] Diagnosis: Nasal congestion[ICD9: 478.19] Diagnosis: ABNORMAL LOSS OF WEIGHT[ICD9: 783.21] Ale Carlos MD, [facility] CPT-4: 53209 11/20/2013 ([id number]) 11679 EST. P ATIENT, LEVEL III Diagnosis: ABNORMAL LOSS OF WEIGHT[ICD9: 783.21] Diagnosis: MALAISE AND FATIGUE[ICD9: 780.79] Diagnosis: Hyponatremia[ICD9: 276.1] Nelly Carlos MD, [facility] CPT- 4: 31042 10/30/2013 ([id number]) 74477 EST. P ATIENT, LEVEL III Diagnosis: Acute maxillary sinusitis[ICD9: 461.0] Diagnosis: COUGH[ICD9: 786.2] Ale Carlos MD, [facility] CPT-4: 85648 10/08/2013 ([id number]) 68301 EST. P ATIENT, LEVEL IV Diagnosis: ESSENTIAL HYPERTENSION[SNOMED: 88439412] Diagnosis: GENERALIZED ANXIETY DISEASE[ICD9: 300.02] Diagnosis: OSTEOARTH NOS-UNSPEC[ICD9: 715.90] Diagnosis: Coronary artery disease[ICD9: 414.00] Ale Carlos MD, [facility] CPT-4: 62079 06/18/2013 ([id number]) 36141 EST. P ATIENT, LEVEL III Diagnosis: ESSENTIAL HYPERTENSION[SNOMED: 68862464] Ale Carlos MD, [facility] CPT-4: 43114 04/04/2013 ([id number]) 14413 EST. P ATIENT, LEVEL IV Diagnosis: ESSENTIAL HYPERTENSION[SNOMED: 78871193] Diagnosis: Leukopenia[ICD9: 288.50] Diagnosis: Encounter for long-term (current) use of other medications[ICD9: V58.69] Ale Carlos MD, [facility] CPT-4: 19599 02/19/2013 ([id number]) 61239 EST. P ATIENT, LEVEL IV Diagnosis: ESSENTIAL HYPERTENSION[SNOMED: 79842390] Diagnosis: MILD COGNITIVE IMPAIREMT[ICD9: 331.83] Ale Carlos MD, [facility] CPT-4: 62043 10/16/2012 ([id number]) 49361 EST. P ATIENT, LEVEL IV Diagnosis: ESSENTIAL HYPERTENSION[SNOMED: 36601409] Diagnosis: GENERALIZED ANXIETY DISEASE[ICD9: 300.02] Diagnosis: IRRITABLE COLON[ICD9: 564.1] Ale Carlos MD, [facility] CPT-4: 70022 03/20/2012 69279 EST. PATIENT, LEVEL IV Diagnosis: ESSENTIAL HYPERTENSION[SNOMED: 32704213] Diagnosis: Osteoarthritis[ICD9: 715.90] Diagnosis: HYPERLIPIDEMIA[ICD9: 272.4] Ale Carlos MD, [facility] CPT-4: 43890 01/24/2012 19847 EST. PATIENT, LEVEL IV Diagnosis: ESSENTIAL HYPERTENSION[SNOMED: 34843691] Diagnosis: BPH W URINARY OBS/LUTS[ICD9: 600.01] Ale Carlos MD, [facility] CPT-4: 55605 12/20/2011 ([id number]) 04968 EST. P ATIENT, LEVEL III Diagnosis: Lump in the groin[ICD9: 789.30] [facility] CPT-4: 71773 12/09/2011 ([id number]) 13514 EST. P ATIENT, LEVEL IV Diagnosis: ESSENTIAL HYPERTENSION[SNOMED: 79227873] Diagnosis: Mild cognitive impairment[ICD9: 331.83] [facility] CPT-4: 09364 08/25/2011 ([id number]) 51859 EST. P ATIENT, LEVEL IV Diagnosis: ESSENTIAL HYPERTENSION[SNOMED: 01940025] Diagnosis: GENERALIZED ANXIETY DISEASE[ICD9: 300.02] Diagnosis: MILD COGNITIVE IMPAIREMT[ICD9: 331.83] Diagnosis: IRRITABLE COLON[ICD9: 564.1] [facility] CPT-4: 07780 06/23/2011 ([id number]) 49636 EST. 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 PATIENT, LEVEL I Diagnosis: ESSENTIAL HYPERTENSION[SNOMED: 20539720] Ale Carlos MD, C CPT-4: 73417 03/23/2011 26884 EST. PATIENT, LEVEL III Diagnosis: ESSENTIAL HYPERTENSION[SNOMED: 51558009] Diagnosis: Laceration of finger, index[ICD9: 883.0] Ale Carlos MD, C CPT-4: 84780 03/08/2011 30686 EST. PATIENT, LEVEL III Diagnosis: ESSENTIAL HYPERTENSION[SNOMED: 45192287] Diagnosis: Irritable bowel syndrome (IBS)[ICD9: 564.1] Ale Carlos MD, C CPT-4: 66282 03/01/2011 78665 EST. PATIENT, LEVEL IV Diagnosis: Mild cognitive impairment with memory loss[ICD9: 331.83] Diagnosis: GENERALIZED ANXIETY DISEASE[ICD9: 300.02] Diagnosis: Bruising[ICD9: 924.9] Diagnosis: HYDROCELE[ICD9: 603.9] Ale Carlos MD, [facility] CPT-4: 08727 02/01/2011 88612 EST. PATIENT, LEVEL III Diagnosis: Testicular pain[ICD9: 608.9] Diagnosis: GENERALIZED ANXIETY DISEASE[ICD9: 300.02] Nelly Carlos MD, [facility] CPT-4: 87939 01/27/2011 83919 EST. PATIENT, LEVEL III Diagnosis: Arm bruise[ICD9: 923.9] Nelly Carlos MD, [facility] CPT-4: 59407 01/26/2011 OFFICE VISIT, NEW - LEVEL 4 Diagnosis: DIARRHEA[ICD9: 787.91] Diagnosis: Elevated liver function tests[ICD9: 790.6] Diagnosis: Abdominal discomfort[ICD9: 789.00] [facility] CPT- 4: 85492 01/06/2011 Plan of Care Planned Activity Notes [...] nail debridement. 05/18/2018 Appointment: Ale Carlos WPtel: [phone] (15 min) Moderate 05/18/2018 Patient Education: [...] discomfort. 04/13/2018 Appointment: Ale Carlos WPtel: [phone] [facility] (30 min) Complex 04/13/2018 Patient Education: [...] WPtel: [facility]5 [facility] (30 min) Complex 02/08/2018 Patient Education: Patient Medication Summary Completed 02/08/2018 Patient Education: Hypertension Completed 02/08/2018 Appointment: Nelly Keen WPtel: [facility]5 [phone] (15 min) Moderate 02/02/2018 Visit Plan: Vqvdlcmicdxm-eaeimum-oi start trulance 3mg daily Dry mouth-biotene mouth spray 01/19/2018 Appointment: Ale Carlos WPtel: [facility]5 [facility] (30 min) Complex 01/19/2018 Patient Education: [...] with any questions or concerns 01/12/2018 Appointment: Nlely Keen WPtel: [facility]5 [phone] (15 min) Moderate 01/12/2018 Patient Education: Patient [...] be helping his symptoms. He is reporting intervention analyst pain - i suspect that some of this is due to his eating early at night then taking at least 10 pills at bedtime without any food in his stomach, then excessive acid production with the pill burden causing him to wake up with pain in the intervention analyst hours. I have recommended that he is to eat 1/2 a sandwich with his ensure at bedtime. 01/05/2018 Appointment: Ale Carlos WPtel: [phone] (15 min) Moderate 01/05/2018 Patient Education: Patient Medication Summary Completed 01/05/2018 [facility]ment: [phone] ([facility] 01/04/2018 Visit Plan: [...] 11/03/2017 Care Plan: Referral Order SNOMED-CT : [id number] Pending 10/28/2017 Visit Plan: Constipation - uncontro [...] improving. 2017 Appointment: Ruchi Agee WPtel: [phone] [facility] (15 min) Moderate 2017 Patient Education: Patient [...] size. 10/13/2017 Appointment: [phone] ([facility]) Complex 10/13/2017 Patient Education: [...] the medication. 09/26/2017 Appointment: Ale Carlos WPtel: [facility]5 [facility] (15 min) Moderate 09/26/2017 Patient Education: Patient Medication Summary Completed 09/26/2017 Appointment: Ale Carlos WPtel: [facility]8 [facility] (30 min) Complex 09/14/2017 Visit Plan: [...] the ER. 09/12/2017 Appointment: Ale Carlos WPtel: [address] [place], [place] [phone] (30 min) Complex 09/12/2017 Patient Education: Patient Medication Summary Completed 09/12/2017 Visit Plan: Ongoing fatigue - persi stent - will check labs and treat as indicated - pt is to notify clinic if symptoms do not improve, if they worsen, or with any changes, questions, or concerns. 09/09/2017 Appointment: Ruchi Agee WPtel: [facility]1 [facility] (30 min) Complex 09/09/2017 Patient Education: Patient [...] at home. 08/17/2017 Appointment: Ale Carlos WPtel: [facility] (15 min) Moderate 08/17/2017 Patient Education: [...] WPtel: [facility]5 [facility] [place] (30 min) Complex 07/20/2017 Appointment: Ale Carlos WPtel: [facility] ([facility] min) Complex 07/20/2017 Patient Education: Patient Medication Summary Completed 07/20/2017 Appointment: Ale Carlos WPtel: [facility] (30 min) Complex 07/19/2017 Appointment: Ale Carlos WPtel: [facility] [place] (15 min) Moderate 07/18/2017 Visit [...] Agee WPtel: [facility]4 [facility] [place] (30 min) Complex 07/01/2017 Appointment: Ruchi Agee WPtel: [phone] [facility] [place] (30 min) Complex 07/01/2017 Patient Education: Patient Medication Summary Completed 07/01/2017 Visit Plan: Neck and upper back reji n and gait unsteadiness - referral to [facility] for upper and low back pain and left arm pain and have gait eval. get Aspercreme from [employer] for your upper neck/upper back. Abdominal upset/cramping - lactaid pills - take before you drink milk or eat cheese or ice cream or yogurt use gas-ex one pill three times daily Chronic anxiety - stable - continue with current management. 06/21/2017 Appointment: Ale Carlos WPtel: 101 [facility] (30 min) Complex 06/21/2017 Patient Education: [...] at home. 03/21/2017 Appointment: Ale Carlos WPtel: [facility]3 [facility] (30 min) Complex 03/21/2017 Patient Education: [...] WPtel: [phone] [phone] [place] (30 min) Complex 03/08/2017 Patient Education: [...] WPtel: [facility]0 [address] (30 min) Complex 01/25/2017 Patient Education: [...] Carlos WPtel: [facility]1 [facility] (30 min) Complex 12/20/2016 Patient Education: Patient Medication Summary Completed 12/20/2016 Patient Education: Hypertension Completed 12/20/2016 Appointment: Ruchi Agee WPtel: [facility] [place] [address] - Annual Wellness Visit 12/03/2016 Visit Plan: [...] acutely worsen. 11/25/2016 Appointment: Ale Carlos WPtel: [facility]9 [facility] (15 min) Moderate 11/25/2016 Patient [...] have thrush. 11/18/2016 Appointment: Ale Carlos WPtel: [phone] [facility] (15 min) Moderate 11/18/2016 Patient Education: [...] and namenda. labs to be done from [facility] 08/23/2016 Appointment: Ale Carlos WPtel: [facility]3 [facility] (30 min) Complex 08/23/2016 Patient Education: [...] WPtel: [facility]8 [facility] (30 min) Complex 04/26/2016 Patient Education: Patient Medication Summary Completed 04/26/2016 Visit Plan: Joint effusion - recomm ended drainage and referral to orthopedic surgeon for surgical debridement of bursa 02/17/2016 Appointment: Ale Carlos [facility]el[phone] (30 min) Complex 02/17/2016 Patient Education: Patient Medication Summary Completed 02/17/2016 Visit Plan: Bursitis-right elbow-dr healy today in the office- increase anti inflammatories for the next 5 days as directed-call if symptoms do not resolve, swelling returns or new symptoms develop-patient verbalized understanding of plan. 02/09/2016 Appointment: Nelly Keen WPtel: [address] [place], [place] [phone] (30 min) Complex 02/09/2016 Patient Education: Patient [...] WPtel: [facility]5 [phone] (30 min) Complex 02/03/2016 Patient Education: Patient Medication Summary Completed 02/03/2016 Patient Education: Patient Medication Summary Completed 01/30/2016 Care Plan: Metabolic Due on Pending 01/30/2016 Visit Plan: Abdominal pain - nausea - Pt to have IV fluids at hospital 01/26/2016 Appointment: Ale Carlos WPtel: [address] [place], [place] [phone] (30 min) Complex 01/26/2016 Patient [...] Keen WPtel: [facility]7 [phone] (30 min) Complex 01/21/2016 Patient Education: Patient [...] treatment. 09/02/2015 Appointment: Ale [phone] (15 min) Moderate 09/02/2015 Patient Education: [...] today 05/06/2015 Appointment: Ale Carlos [facility]el[phone] (15 min) Moderate 05/06/2015 Patient Education: Patient Medication Summary Completed 05/06/2015 Patient Education: Hypertension Completed 05/06/2015 Care Plan: COMPLETE CBC AUTOMATED LOINC : 32625-7 Ordered 05/06/2015 Visit Plan: Hypertension - well [...] current medications. 03/05/2015 Appointment: Ale Carlos WPtel: [facility]5 [facility] (30 min) Complex 03/05/2015 Patient Education: [...] -has improved. 12/04/2014 Appointment: Ale Carlos WPtel: [facility] Follow up 12/04/2014 Patient Education: Patient [...] Plan: CT ABD & PELV 1/> [facility] : 31913-1 Ordered 09/24/2014 Visit Plan: Hypertension - well [...] THAT HE SHOULD NOT BE DRIVING TO [place] 07/26/2014 Appointment: Sick 07/26/2014 Appointment: Sick 07/26/2014 [...] medication list. 07/10/2014 Appointment: Ale Carlos WPtel: [address] [place], [place] [phone] Follow up 07/10/2014 Patient Education: Patient Medication Summary Completed 07/10/2014 Patient Education: Hypertension Completed 07/10/2014 Appointment: Ale Carlos WPtel: [address] [place], [place] [phone] Follow up 06/20/2014 Appointment: Ale Carlos WPtel: [address] [place] [phone] Follow up 06/10/2014 Visit Plan: [...] in blood pressure readings at home. Urinary jctlbydfz-ZGY-cciikr flomax to bedtime Dizziness-stop hydrocodone and ativan [...] 3 WEEKS 05/29/2014 Appointment: Ale Carlos WPtel: [facility]4 [facility] Sick 05/29/2014 Patient Education: Patient Medication Summary Completed 05/29/2014 Patient Education: Hypertension Completed 05/29/2014 Appointment: Ale Carlos [facility]el[phone] Lab Draw 05/23/2014 Patient Education: Patient Medication Summary Completed 05/23/2014 Visit Plan: Pneumonia - Pt has been diagnosed with pneumonia by physical exam. A chest xray has been ordered as have antibiotics. The pt is aware of the diagnosis and the need for acute treatment of this illness. A otlvauxq-nxxmr-typpqpe flonase nasal spray Hyponatremia-increase gatorade as directed 05/20/2014 Visit Plan: Pneumonia - Pt has been diagnosed with pneumonia by physical exam. A chest xray has been ordered as have antibiotics. The pt is aware of the diagnosis and the need for acute treatment of this illness. A pcufeeft-wuese-sujudui flonase nasal spray Hyponatremia-increase gatorade as directed ADDENDUM: RECOMMEND PATIENT START ON ALBUTEROL NEBULIZER TREATMENTS EVERY 4 HOURS NEEDED FOR SHORTNESS OF BREATH/WHEEZING. DX SECONDARY PNEUMONIA FROM INFLUENZA, COUGH 05/20/2014 Patient Education: Patient Medication Summary Completed 05/20/2014 Appointment: Ale Carlos [facility]Ptel: [phone] [place] Injection 03/26/2014 Patient Education: Patient [...] Merlos. 03/25/2014 Appointment: Ale Carlos [facility]Ptel: [phone] Follow up 03/25/2014 Patient Education: Patient Medication Summary Completed 03/25/2014 Patient Education: Hypertension Completed 03/25/2014 Visit Plan: Igzow-bewhugxiu-uzmsaoi laryngeal reflux-RX for protonix (patient is on [...] at home. 12/24/2013 Appointment: Ale Carlos WPtel: [address] [place], [place] [phone] Follow up 12/24/2013 Patient Education: Patient Medication [...] portion size. 11/20/2013 Appointment: Ale Carlos WPtel: [address] [place], [place] [phone] Follow up 11/20/2013 Patient Education: Patient Medication Summary Completed 11/20/2013 Appointment: Ale Carlos WPtel: [address] [place], [place] [phone] Follow up 11/06/2013 Visit Plan: Weight loss-increase po rtions-add snacks in the morning and afternoon-follow up in 3 weeks for weight check Low sodium-check labs-restart gatorade Nkpiomw-seqnaz-mowod labs and UA 10/30/2013 Patient Education: Patient Medication Summary Completed 10/30/2013 Appointment: Ale Carlos WPtel: [address] [place], [place] [phone] [place] Follow up 10/16/2013 Visit Plan: Sinusitis [...] Merlos. 06/18/2013 Appointment: Ale Carlos [facility]Ptel: [phone] [place] Follow up 06/18/2013 Patient Education: [...] acute concerns. 04/04/2013 Appointment: Ale Carlos [facility]Ptel: [phone] [place] Follow up 04/04/2013 Patient Education: [...] report. 02/19/2013 Appointment: Ale Carlos WPtel: [phone] [facility] Follow up 02/19/2013 Patient Education: Patient [...] loss. 10/16/2012 Appointment: Ale Carlos WPtel: [phone] [facility] Follow up 10/16/2012 Patient Education: Patient [...] colon return. 06/19/2012 Appointment: Ale Carlos WPtel: [facility]5 [facility] Follow up 06/19/2012 Patient Education: Patient [...] WPtel: [facility]5 [facility] Follow up 03/20/2012 Patient Education: Patient Medication Summary Completed 03/20/2012 Patient Education: High Blood Pressure: Essential Hypertension Completed 03/20/2012 Appointment: Ale Carlos WPtel: [facility]5 [facility] Follow up 02/22/2012 Visit Plan: Hypertension [...] WPtel: [facility]5 [facility] [place] Follow up 01/24/2012 Patient Education: [...] have the biopsy until 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 I anticipate it will be at least 4-6 months before he can be off of the plavix and aspirin for additonal procedures unless it is of extreme urgency. 12/20/2011 Appointment: Ale Carlos WPtel: [facility] [place] Follow up 12/20/2011 Patient Education: Patient Medication Summary Completed 12/20/2011 Patient Education: High Blood Pressure: Essential Hypertension Completed 12/20/2011 Appointment: Ale Carlos WPtel: [facility] [place] Other 12/13/2011 Visit Plan: Pain in groin post hear t cath with increased discomfort and increased size - will order an ultrasound for today. 12/09/2011 Appointment: Ale Carlos WPtel: [facility] Other 12/09/2011 Patient Education: Patient Medication [...] either medication. 08/25/2011 Appointment: Ale Carlos WPtel: [address] [place] [address] [place] Other 08/25/2011 Patient Education: Patient Medication [...] low doses. 06/23/2011 Appointment: Ale Carlos WPtel: [address] [place], [place] [phone] [place] Other 06/23/2011 Patient Education: Patient Medication Summary Completed 06/23/2011 Patient Education: High Blood Pressure: Essential Hypertension Completed 06/23/2011 Appointment: Ale Carlos WPtel: [address] [place], [place] [phone] Other 04/26/2011 Visit Plan: Hypertension - well [...] seeds, etc. 04/19/2011 Appointment: Ale Carlos WPtel: [facility]5 [facility] Other 04/19/2011 Patient Education: Patient Medication Summary Completed 04/19/2011 Patient Education: High Blood Pressure: Essential Hypertension Completed 04/19/2011 Patient Education: Diverticulosis Diet Completed 04/19/2011 Appointment: Nelly Keen WPtel: [phone] Other 03/23/2011 Patient Education: Patient Medication Summary [...] WPtel: [facility] Other 03/08/2011 Patient Education: Patient Medication [...] day. 03/01/2011 Appointment: Ale Carlos WPtel: [phone] [facility] [place] Other 03/01/2011 Patient Education: Patient Medication Summary Completed 03/01/2011 Patient Education: High Blood Pressure: Essential Hypertension Completed 03/01/2011 Appointment: Nelly Keen WPtel: [phone] [place] Injection 02/25/2011 Patient Education: Patient Medication Summary Completed 02/25/2011 Appointment: Ale [facility]el[facility] [phone] [facility] [place] Injection 02/16/2011 Patient Education: Patient Medication Summary Completed 02/16/2011 Appointment: Ale Carlos WPtel: [facility] [place] Injection 02/09/2011 Patient Education: Patient Medication Summary Completed 02/09/2011 Appointment: Ale Carlos WPtel: [facility] [place] Follow up 02/02/2011 Visit Plan: [...] Kenji Dash in [place]. Upon our conversation ccxz-avj-qmand, Kenji vocalized concerns for his Dad's memory. He stated that he has noticed his father not being as quick in his cognitive functioning, he has noticed some concerns with driving as well. He states that he will discuss these concerns with his parents and other siblings. 02/01/2011 Appointment: Ale Carlos WPtel: [facility] Other 02/01/2011 Patient Education: Patient Medication [...] as needed. 01/27/2011 Appointment: Ale Carlos WPtel: [address] [place], [place] [phone] New Patient 01/27/2011 Patient Education: Patient Medication Summary Completed 01/27/2011 Visit Plan: Bruising/hematoma left arm-discussed natural and expected course of this diagnosis and to alert me if symptoms do not follow expected course or if any worse, Continue with ice/heat as needed for disc omfort. Call for any concerns. 01/26/2011 Appointment: Nelly Keen WPtel: [facility] [place] [address] Other 01/26/2011 Patient Education: Patient Medication Summary [...] course. 01/15/2011 Appointment: N[facility] Keen [facility]Ptel: [phone] [place] [address] Other 01/15/2011 Patient Education: Patient Medication Summary [...] diet. 01/06/2011 Appointment: Ale [facility]el[facility] [phone] [facility] [place] New Patient 01/06/2011 Patient Education: [...] need for acute treatment of this illness. Zjjrsrfvb-chogc-xuswwoh flonase nasal spray Hyponatremia-increase gatorade as directed . Pneumonia - Pt has been diagnosed with pneumonia by physical exam. A chest xray has been ordered as have antibiotics. The pt is aware of the diagnosis and the need for acute treatment of this illness. Nofabeuij-zzifw-vsoikyf flonase nasal spray Hyponatremia-increase gatorade as directed [...] improved on this regimen. . Hypertension - wel l controlled - [...] have the biopsy until 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 I anticipate it will be at least 4-6 months before he can be off of the plavix and aspirin for additonal procedures unless it is of extreme urgency. CHECK LABS-CBC, CMP, UA WITH C&S IF INDICATED . Weight loss-increase portions-add snac ks in the morning and afternoon-follow up in 3 weeks for weight check Low sodium-check labs-restart gatorade Lobkljm-ganptg-zcuue labs and UA . Joint effusion - [...] size. . Hypertension - wel l controlled at [...] 8 hours as needed. . Hypertension - unc ontrolled - the [...] a prescriptio n of generic zyrtec to [facility] - if it is expensive get [...] in the nasal steroid allergy spray. . Abdominal pain - n ausea - [...] be helping his symptoms. He is reporting intervention analyst pain - i suspect that some of this is due to his eating early at night then taking at least 10 pills at bedtime without any food in his stomach, then excessive acid production with the pill burden causing him to wake up with pain in the intervention analyst hours. I have recommended that he is [...] Blood pressure check today in the office-improving. pt has been advised to use THE [...] improvement of his anxiety and memory loss. on the Requip - decr ease the [...] labs to be done from [facility] . Bruising/hematoma left arm-discussed natural and expected [...] -call with any questions or concerns . Constipation - co ntinue with Miralax [...] the glyburide as prescribed through the ER. INCREASE YOUR MELOXI CAM (MOBIC) TO 1/2 PILL TWICE DAILY X 5 DAYS CALL IF YOUR ELBOWS SWELLS AGAIN OR YOU DEVELOP PAIN OR OTHER CONCERNS . Bursitis-right elbow-drained today in the office-increase anti inflammatories for the next 5 days as directed-call if symptoms do not resolve, swelling returns or new symptoms develop-patient verbalized understanding of plan. call the office in 2 weeks - [...] twice HTN-well controlled-no change in treatment . Constipation - unc ontrolled - pt [...] if the symptoms are not improving. . Wamfy-xjmxzoukb-ni spect laryngeal reflux-RX for protonix (patient is [...] the lactose free diet. get Aspercreme from [facility] for your upper neck/upper back. lactaid pills - take before you drink milk or eat cheese or ice cream or yogurt use gas-ex one pill three times daily . Neck and upper back pain and gait unst eadiness - referral to [facility] for upper and low back pain and left arm pain and have gait eval. get Aspercreme from [facility] for your upper neck/upper back. Abdominal upset/cramping [...] IN THE EVENING OF 01/15/11 [address] [place] [address] Carlos[address] Recommend Lactobacillus 1 orally twice daily for the next 5 days then stop. If you are having cramping and bloating, take the bentyl as prescribed by Dr. Quintero. Increase your fluid intake during the day. Recommend gatorade 8oz daily at [facility] for your decreased sodium level. . Nocturia-defer treatment to Dr. Quintero. Continue with proscar and flomax. Return to follow up with Dr. Quintero on Tuesday as scheduled. Call if unable to void, fever, other concerns, etc. Abdominal bloating, gas-recommend lactobacillus 1 po twice daily while on antibiotics. Diarrhea-resolved per patient report. Finish antibiotics for full course. . Hydrocele and vari cocele- Recommend wearing [...] Kenji Dash in [place]. Upon our conversation xgbh-mhf-hqsvk, Kenji vocalized concerns for his Dad's memory. He stated that he has noticed his father not being as quick in his cognitive functioning, he has noticed some concerns with driving as well. He states that he will discuss these concerns with his parents and other siblings. stop losartan - [facility] k blood pressure and heart rate [...] spray -it is over the counter . Jknzjdhdpkkx-isqvlvc-croxats trulance 3mg daily Dry mouth-biotene mouth spray [...] diet, and monitor symptoms of GI upset. . Hypertension - wel l controlled - [...] THAT HE SHOULD NOT BE [facility]IVING [facility] . Ethmoid sinusitis - check sinus xray [...] in blood pressure readings at home. Urinary cmhxadegr-BBJ-mhhrnx flomax to bedtime Dizziness-stop hydrocodone and ativan [...] in blood pressure readings at home. decrease Protonix (p antoprazole) to ONE pill [...] MIKAELA if symptoms of irritable colon return. Pt is to try 1/2 pil l [...] off of the bentyl. . Hypertension - we ll controlled - [...]
--- OUTSIDE RECORDS SUMMARY | 2019-07-16 08:06 | XMS REPORT | CCD ---
Author Author Kenneth Carlos Organization Ale Carlos MD, [facility] Address [address] [place] [address] Phone Care Team Providers Care Field Service Specialist Name Role Phone Ale Carlos PP Unavailable CCM Unavailable Summary Purpose Interface Exchange Insurance Providers Payer name Policy type / Coverage type Covered republican ID Effective Begin Date Effective End Date WPS Medicare Part B Medicare Part B [id number] Unknown Unknown [facility] icare Part B [id number] Unknown Unk nown Family history Runs in the family Diagnosis Age At Onset No Family Disease Entered N/A Mother Diagnosis Age At Onset No Family Disease Entered N/A Father Diagnosis Age At Onset Heart disease Unknown Social History Social History Element Codes Description Effective Dates Number of children Unknown 3 ([place], [place], [place]) 10/14/19 18 Living arrangements Unknown House 01/11/2011 Number of adults in household Unknown 2 01/11/2011 Education level Unknown Post-Graduate PHD in chemistry 01/11/2011 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 Unknown Has never used illegal drugs 011 Allergies, Adverse Reactions, Alerts Substance Reaction Codes Entered Date Inactivated Date Status * NO KNOWN FOOD NAYE RGIES Unknown 04/19/2011 No Inactive Date Active Toradol RxNorm: 09438 03/05/2011 No Inactive Date Active Lisinopril cough, [...] Date Stop Date Sta tus Fill Instructions lisinopril 20 mg tablet RxNorm: 964425 TAKE 1 TABLET DAILY 06/05/2018 12/01/2018 Active triamterene 37.5 mg- hydrochlorothiazide 25 mg tablet RxNorm: 774065 1 Tablet(s) PO daily 05/18/2018 12/13/2018 Active cetirizine 10 mg tablet RxNorm: 0287086 TABLET(S) 1 TABLET(S) PO DAILY TO TAKE I NSTEAD OF THE CLARITIN 03/13/2018 02/05/2019 Active amlodipine 10 mg tablet RxNorm: 922302 TAKE 1 TABLET BY MOUTH EVERY DAY 03/09/2018 10/04/2018 Ac tive fluticasone 50 mcg/a ctuation nasal spray,suspension RxNorm: 8199865 1 [place] NASAL BID 02/08/2018 No Stop Date Active fluticasone 50 mcg/a ctuation nasal spray,suspension RxNorm: 6269015 1 [place] NASAL BID 02/08/2018 02/07/2018 Inactive Trulance 3 mg tablet RxNorm: 9833924 1 Tablet(s) PO QAM 01/19/2018 07/17/2018 Active cefdinir 300 mg capsule RxNorm: 416348 1 Capsule(s) PO BID 12/28/2017 01/03/2018 Inactive cefdinir 300 mg capsule RxNorm: 599124 1 Capsule(s) PO BID 12/28/2017 12/27/2017 Inactive clopidogrel 75 mg ta blet RxNorm: 331700 TAKE 1 TABLET BY MOUT H EVERY DAY 12/26/2017 06/23/2018 Ac tive Namenda 10 mg tablet RxNorm: 529561 Tablet(s) TAKE 1 TABLET BY MOUTH TWICE D AILY. 12/15/2017 No Stop Date Active Robinul 1 mg tablet RxNorm: 324571 1/2 Tablet(s) PO AC & HS 12/12/2017 12/14/2017 Inactive Robinul 1 mg tablet RxNorm: 051590 1/2 Tablet(s) PO AC & HS 12/12/2017 12/11/2017 Inactive donepezil 10 mg tablet RxNorm: 242232 1 TABLET(S) PO DAILY TAKE 1 TABLET BY MO UTH ONCE DAILY 12/08/2017 12/11/2017 Inactive Patient requests 90 days supply lisinopril 20 mg tablet RxNorm: 868046 TAKE 1 TABLET DAILY 12/05/2017 01/11/2018 Inactive Cymbalta 30 mg capsu le,delayed release RxNorm: 063093 1 Capsule(s) PO daily 12/05/2017 12/04/2017 In active Cymbalta 30 mg capsu le,delayed release RxNorm: 356461 1 Capsule(s) PO daily 12/05/2017 12/05/2017 In active Trulance 3 mg tablet RxNorm: 1448454 1 Tablet(s) PO daily 11/14/2017 12/13/2017 Inactive Linzess 145 mcg capsule RxNorm: 0179101 1 Capsule(s) PO daily 10/28/2017 12/14/2017 Inactive Zantac 150 mg tablet RxNorm: 346029 1 Tablet(s) PO QAM 10/13/2017 01/04/2018 Inactive mirtazapine 15 mg ta blet RxNorm: 078776 TAKE ONE TABLET BY MO UTH EVERY DAY 09/29/2017 09/23/2018 Ac tive Mobic 15 mg tablet RxNorm: 489030 1/2 TABLET(S) DAILY 09/26/2017 12/19/2017 Inactive lisinopril 20 mg tablet RxNorm: 805830 1/2 Tablet(s) daily 09/13/2017 01/12/2018 Inactive amlodipine 10 mg tablet RxNorm: 442251 TAKE 1 TABLET BY MOUTH EVERY DAY 09/09/2017 03/07/2018 In active Reglan 5 mg tablet RxNorm: 022247 1/2 Tablet(s) PO TID may increase up to a full pill three times daily as needed for poor GI motility 07/20/2017 09/17/2017 Inactive Protonix 40 mg table t,delayed release RxNorm: 599252 1 Tablet(s) PO daily 07/04/2017 01/29/2018 In active clopidogrel 75 mg ta blet RxNorm: 296468 TAKE 1 TABLET BY MOUT H EVERY DAY 06/20/2017 12/16/2017 In active cetirizine 10 mg tablet RxNorm: 6676068 TABLET(S) 1 TABLET(S) PO DAILY TO TAKE I ROXANNATEAD OF THE CLARITIN 06/06/2017 03/12/2018 Inactive lisinopril 20 mg tablet RxNorm: 595291 TAKE 1 TABLET DAILY 05/30/2017 09/12/2017 Inactive Mobic 15 mg tablet RxNorm: 330967 1/2 TABLET(S) DAILY 03/21/2017 09/16/2017 Inactive donepezil 10 mg tablet RxNorm: 224389 1 Tablet(s) PO daily TAKE 1 TABLET BY MO UTH ONCE DAILY 02/28/2017 11/24/2017 Inactive Patient requests 90 days supply Requip 0.25 mg tablet RxNorm: 944028 1 TABLET(S) PO BID 01/24/2017 01/04/2018 Inactive Patient requests 90 days supply clopidogrel 75 mg ta blet RxNorm: 982047 TAKE 1 TABLET BY MOUT H EVERY DAY 12/23/2016 06/19/2017 In active lisinopril 20 mg tablet RxNorm: 281389 TAKE 1 TABLET DAILY 11/26/2016 05/24/2017 Inactive Kenalog 40 mg/mL hugo pension for injection RxNorm: 7046735 Milliliter(s) Inj 11/25/2016 11/25/2016 In active cefdinir 300 mg capsule RxNorm: 354332 1 Capsule(s) PO BID 11/23/2016 11/27/2016 Inactive cefdinir 300 mg capsule RxNorm: 326787 1 Capsule(s) PO BID 11/23/2016 11/22/2016 Inactive nystatin 100,000 uni t/mL oral suspension RxNorm: 024168 5 Milliliter(s) PO QI D 11/18/2016 11/27/2016 In active azithromycin 250 mg tablet RxNorm: 049529 1 Tablet(s) PO UD 2 p ills on day #1 then one pill daily x 4 more days 11/18/2016 11/22/2016 Inactive Mobic 15 mg tablet RxNorm: 586451 1/2 TABLET(S) DAILY 10/28/2016 03/20/2017 Inactive citalopram 10 mg tablet RxNorm: 148608 TAKE 1 TABLET BY MOUTH EVERY DAY 10/07/2016 03/05/2017 In active Patient requests 90 days supply mirtazapine 15 mg ta blet RxNorm: 902598 TAKE ONE TABLET BY MO UTH EVERY DAY 10/06/2016 09/28/2017 In active mirtazapine 15 mg ta blet RxNorm: 687993 TAKE ONE TABLET BY MO UTH EVERY DAY 10/05/2016 10/05/2016 In active Patient requests 90 days supply amlodipine 10 mg tablet RxNorm: 610862 TAKE 1 TABLET BY MOUTH EVERY DAY 09/14/2016 01/24/2017 In active clopidogrel 75 mg ta blet RxNorm: 928763 TAKE 1 TABLET BY MOUT H EVERY DAY 06/28/2016 12/22/2016 In active lisinopril 20 mg tablet RxNorm: 803390 TAKE 1 TABLET DAILY 05/31/2016 11/25/2016 Inactive donepezil 10 mg tablet RxNorm: 637257 TAKE 1 TABLET BY MOUTH ONCE DAILY 05/11/2016 11/06/2016 In active donepezil 10 mg tablet RxNorm: 752298 TAKE 1 TABLET BY MOUTH ONCE DAILY 04/26/2016 02/28/2017 In active Mobic 15 mg tablet RxNorm: 963025 1/2 Tablet(s) daily 04/19/2016 10/15/2016 Inactive citalopram 10 mg tablet RxNorm: 362523 TAKE 1 TABLET BY MOUTH EVERY DAY 04/06/2016 04/25/2016 In active cetirizine 10 mg tablet RxNorm: 7199649 Tablet(s) 1 TABLET(S) PO DAILY TO TAKE I NSTEAD OF THE CLARITIN 03/30/2016 02/22/2017 Inactive amlodipine 10 mg tablet RxNorm: 768024 TAKE 1 TABLET BY MOUTH EVERY DAY 03/08/2016 01/24/2017 In active amlodipine 10 mg tablet RxNorm: 700851 1 Tablet(s) PO daily TAKE 1 TABLET BY MO UT ONCE DAILY 03/03/2016 03/07/2016 Inactive Requip 0.25 mg tablet RxNorm: 011609 1 Tablet(s) PO BID 03/03/2016 09/13/2016 Inactive Mobic 15 mg tablet RxNorm: 455499 1 Tablet(s) daily not refilled on a 02/23/2016 04/18/2016 In active cetirizine 10 mg tablet RxNorm: 0892613 1 TABLET(S) PO DAILY TO TAKE INSTEAD OF THE CLARITIN 02/19/2016 03/19/2016 Inactive lisinopril 20 mg tablet RxNorm: 957298 TAKE 1 TABLET DAILY 02/18/2016 05/17/2016 Inactive Namenda 10 mg tablet RxNorm: 734169 Tablet(s) TAKE 1 TABLET BY MOUTH TWICE D AILY. 02/17/2016 12/14/2017 Inactive lisinopril 20 mg tablet RxNorm: 971090 TAKE 1 TABLET DAILY 01/23/2016 01/24/2017 Inactive cetirizine 10 mg tablet RxNorm: 8021040 1 Tablet(s) PO daily to take instead of the claritin 01/21/2016 02/18/2016 Inactive amlodipine 10 mg tablet RxNorm: 008979 1 Tablet(s) PO daily TAKE 1 TABLET BY MO UTH ONCE DAILY 12/02/2015 03/02/2016 Inactive clopidogrel 75 mg ta blet RxNorm: 223200 TAKE 1 TABLET BY MOUT H EVERY DAY 11/25/2015 05/22/2016 In active Mobic 15 mg tablet RxNorm: 047578 TAKE(1/2) TABLET DAILY. 11/17/2015 02/22/2016 Inactive lisinopril 20 mg tablet RxNorm: 312422 TAKE 1 TABLET DAILY 11/17/2015 01/15/2016 Inactive Mobic 15 mg tablet RxNorm: 796386 1/2 Tablet(s) PO daily TAKE (1/2) TABLET DAILY. 11/12/2015 11/16/2015 Inactive citalopram 10 mg tablet RxNorm: 998514 TAKE 1 TABLET BY MOUTH EVERY DAY 10/27/2015 04/05/2016 In active Requip 0.25 mg tablet RxNorm: 443927 1 Tablet(s) PO BID 10/15/2015 02/11/2016 Inactive Requip 0.25 mg tablet RxNorm: 930521 1 Tablet(s) PO BID 10/15/2015 10/14/2015 Inactive mirtazapine 15 mg ta blet RxNorm: 058094 1 Tablet(s) PO daily 09/08/2015 10/01/2016 Inactive donepezil 10 mg tablet RxNorm: 590009 TAKE 1 TABLET DAILY 09/01/2015 04/25/2016 Inactive amlodipine 10 mg tablet RxNorm: 148719 1 Tablet(s) PO daily TAKE 1 TABLET BY MO UTH ONCE DAILY 08/18/2015 12/01/2015 Inactive clopidogrel 75 mg ta blet RxNorm: 754244 1 Tablet(s) PO daily TAKE 1 TABLET DAILY 05/20/2015 11/24/2015 In active Mobic 15 mg tablet RxNorm: 812110 Tablet(s) TAKE (1/2) TABLET DAILY. 04/23/2015 10/19/2015 In active lisinopril 20 mg tablet RxNorm: 148054 TAKE 1 TABLET DAILY 04/22/2015 11/16/2015 Inactive Mobic 15 mg tablet RxNorm: 734817 TAKE (1/2) TABLET DAILY. 04/22/2015 04/22/2015 Inactive sulfamethoxazole 400 mg-trimethoprim 80 mg tablet RxNorm: 112221 1/2 Tablet(s) PO nancy y 03/11/2015 04/09/2015 Inactive Vesicare 5 mg tablet RxNorm: 941286 1 Tablet(s) PO 03/11/2015 05/09/2015 Inactive Protonix 40 mg table t,delayed release RxNorm: 974350 1 Tablet(s) PO BID 03/05/2015 09/30/2015 In active ok to change from [address] Archana rivera clopidogrel 75 mg ta blet RxNorm: 179207 1 Tablet(s) PO daily TAKE 1 TABLET DAILY 02/20/2015 05/19/2015 In active Namenda 10 mg tablet RxNorm: 651048 Tablet(s) TAKE 1 TABLET BY MOUTH TWICE D AILY. 01/22/2015 02/16/2016 Inactive amlodipine 10 mg tablet RxNorm: 109253 TAKE 1 TABLET BY MOUTH ONCE DAILY 01/14/2015 08/17/2015 In active donepezil 10 mg tablet RxNorm: 786638 TAKE 1 TABLET DAILY 01/06/2015 08/31/2015 Inactive Levsin 0.125 mg tablet RxNorm: 0983866 1 Tablet(s) PO QID as needed FOR ABD REJI N 11/05/2014 12/03/2014 In active Mobic 15 mg tablet RxNorm: 321249 1/2 Tablet(s) daily TAKE (1/2) TABLET DA MOIZ. 10/01/2014 04/21/2015 Inactive ciprofloxacin 500 mg tablet RxNorm: 653425 1 Tablet(s) PO BID 09/27/2014 10/01/2014 Inactive Flagyl 500 mg tablet RxNorm: 147513 1 Tablet(s) PO TID 09/27/2014 10/03/2014 Inactive take probiotic BID donepezil 10 mg tablet RxNorm: 891465 1/2 Tablet(s) PO BID 09/24/2014 01/05/2015 Inactive lisinopril 20 mg tablet RxNorm: 591064 TAKE 1 TABLET DAILY 09/05/2014 04/21/2015 Inactive amlodipine 10 mg tablet RxNorm: 025797 1 Tablet(s) PO daily 09/02/2014 12/30/2014 Inactive mirtazapine 15 mg ta blet RxNorm: 354153 1 Tablet(s) PO daily 08/28/2014 09/07/2015 Inactive donepezil 10 mg tablet RxNorm: 814469 1 Tablet(s) PO daily 08/28/2014 09/23/2014 Inactive citalopram 10 mg tablet RxNorm: 963079 1 Tablet(s) PO daily 08/28/2014 03/25/2015 Inactive citalopram 10 mg tablet RxNorm: 944760 1 Tablet(s) PO daily 08/07/2014 08/27/2014 Inactive citalopram 10 mg tablet RxNorm: 428219 1 Tablet(s) PO daily 08/07/2014 08/06/2014 Inactive Flagyl 500 mg tablet RxNorm: 402863 1 Tablet(s) PO TID 08/02/2014 08/01/2014 Inactive take probiotic BID Flagyl 500 mg tablet RxNorm: 760325 1 Tablet(s) PO TID 08/02/2014 08/08/2014 Inactive take probiotic BID tamsulosin ER 0.4 mg capsule,extended release 24 hr RxNorm: 332462 1 Capsule(s) PO QHS 06/06/2014 03/10/2015 Inactive TAKE AT BEDTIME escitalopram 5 mg ta blet RxNorm: 843368 1 Tablet(s) PO QPM 06/06/2014 08/06/2014 Inactive doxycycline hyclate 100 mg tablet RxNorm: 191765 1 Tablet(s) PO BID 05/31/2014 05/30/2014 Inactive doxycycline hyclate 100 mg tablet RxNorm: 307060 1 Tablet(s) PO BID 05/31/2014 06/06/2014 Inactive please deliver if not picked by 3pm Aricept 5 mg tablet RxNorm: 953954 1 Tablet(s) PO BID 05/29/2014 08/27/2014 Inactive losartan 50 mg tablet RxNorm: 719322 1/2 Tablet(s) PO daily 05/29/2014 12/28/2015 Inactive clopidogrel 75 mg ta blet RxNorm: 817462 1 Tablet(s) PO daily 05/27/2014 05/26/2014 Inactive Mobic 15 mg tablet RxNorm: 827304 TAKE (1/2) TABLET DAILY. 05/27/2014 09/30/2014 Inactive clopidogrel 75 mg ta blet RxNorm: 258782 TAKE 1 TABLET DAILY 05/27/2014 02/19/2015 Inactive Mobic 15 mg tablet RxNorm: 237666 1/2 Tablet(s) PO daily TAKE (1/2) TABLET DAILY. 05/27/2014 05/26/2014 Inactive prednisone 20 mg tablet RxNorm: 232955 1 Tablet(s) PO BID 05/21/2014 05/25/2014 Inactive albuterol sulfate 2. 5 mg/0.5 mL solution for nebulization RxNorm: 160275 1 inhale INH Q4H as needed 05/21/2014 09/01/2015 Inactive prednisone 20 mg tablet RxNorm: 866459 1 Tablet(s) PO BID 05/21/2014 05/20/2014 Inactive cefdinir 300 mg capsule RxNorm: 662679 1 Capsule(s) PO BID 05/20/2014 05/26/2014 Inactive Zithromax Z-Dequan 250 mg tablet RxNorm: 583615 1 Tablet(s) PO UD 05/20/2014 05/24/2014 Inactive zpack lorazepam 0.5 mg tablet RxNorm: 282013 1/2 to 1 Tablet(s) PO Q8 PRN as needed 04/30/2014 06/05/2014 In active Namenda 10 mg tablet RxNorm: 732468 TAKE 1 TABLET BY MOUTH TWICE DAILY. 04/15/2014 01/21/2015 In active Namenda 10 mg tablet RxNorm: 832606 1 Tablet(s) PO BID 04/15/2014 04/14/2014 Inactive losartan 50 mg tablet RxNorm: 369966 1 Tablet(s) PO daily 03/25/2014 05/28/2014 Inactive Protonix 40 mg table t,delayed release RxNorm: 928912 1 Tablet(s) PO QPM 03/21/2014 06/18/2014 In active ok to change from [address] Archana rivera fluticasone 50 mcg/a ctuation nasal spray,suspension RxNorm: 401437 1 [place] NASAL BID 03/04/2014 09/29/2014 Inactive Protonix 20 mg table t,delayed release RxNorm: 513283 1 Tablet(s) PO QPM 02/08/2014 03/20/2014 In active fluticasone 50 mcg/a ctuation nasal spray,suspension RxNorm: 477513 1 [place] NASAL BID 01/30/2014 03/03/2014 Inactive fluticasone 50 mcg/a ctuation nasal spray,suspension RxNorm: 478117 1 [place] NASAL BID 12/24/2013 01/29/2014 Inactive fluticasone 50 mcg/a ctuation nasal spray,suspension RxNorm: 607695 1 [place] NASAL BID 11/20/2013 12/23/2013 Inactive doxycycline hyclate 100 mg capsule RxNorm: 7664202 1 Capsule(s) PO BID 10/08/2013 10/17/2013 In active doxycycline hyclate 100 mg capsule RxNorm: 8965413 capsule oral 10/08/2013 10/29/2013 Inactive fluticasone 50 mcg/a ctuation nasal spray,suspension RxNorm: 289007 spray,suspension nasl 10/08/2013 11/19/2013 Inactive fluticasone 50 mcg/a ctuation nasal spray,suspension RxNorm: 436448 1 [place] NASAL BID Nasal spray- use twice daily, one spray per nostril twice daily, after 30 minutes, rinse out nose with saline spray. 10/08/2013 10/29/2013 Inactive mirtazapine 7.5 mg t ablet RxNorm: 146761 1/2 Tablet(s) PO daily 08/30/2013 08/27/2014 Inactive lorazepam 0.5 mg tablet RxNorm: 759715 1/2 Tablet(s) PO Q8 PRN 08/21/2013 04/29/2014 Inactive Aricept 5 mg tablet RxNorm: 816187 Tablet(s) PO TAKE 1 TABLET DAILY 08/21/2013 05/28/2014 In active Plavix 75 mg tablet RxNorm: 857628 Tablet(s) PO TAKE 1 TABLET DAILY 05/24/2013 12/04/2014 In active clopidogrel 75 mg ta blet RxNorm: 041239 tablet oral 05/24/2013 05/26/2014 Inactive Plavix 75 mg tablet RxNorm: 283784 1 Tablet(s) PO daily 05/23/2013 05/23/2013 Inactive meloxicam 15 mg tablet RxNorm: 115247 tablet oral 04/26/2013 03/25/2014 Inactive Mobic 15 mg tablet RxNorm: 601516 Tablet(s) PO TAKE (1/2) TABLET DAILY. 04/26/2013 05/26/2014 In active Mobic 15 mg tablet RxNorm: 012643 1/2 Tablet(s) PO daily 04/25/2013 04/25/2013 Inactive lisinopril 20 mg tablet RxNorm: 650721 1 Tablet(s) PO 04/04/2013 03/24/2014 Inactive finasteride 5 mg tablet RxNorm: 774481 tablet oral 03/22/2013 09/01/2015 Inactive lisinopril 10 mg tablet RxNorm: 064396 1 Tablet(s) PO daily 02/14/2013 04/03/2013 Inactive donepezil 5 mg tablet RxNorm: 356539 tablet oral 02/07/2013 12/24/2013 Inactive Influenza Virus Vacc ine 0.5 mL RxNorm: IM 02/06/2013 02/06/2013 Inactive Aricept 5 mg tablet RxNorm: 156645 1 Tablet(s) PO daily 02/06/2013 08/04/2013 Inactive tamsulosin ER 0.4 mg capsule,extended release 24 hr RxNorm: 692419 capsule,extended release 24hr oral 12/21/2012 06/05/2014 Inactive Plavix 75 mg tablet RxNorm: 903933 1 Tablet(s) PO daily 12/05/2012 05/03/2013 Inactive lorazepam 0.5 mg tablet RxNorm: 288696 1/2 Tablet(s) PO Q8 PRN 11/14/2012 08/20/2013 Inactive lisinopril 10 mg tablet RxNorm: 547770 1 Tablet(s) PO daily 08/08/2012 02/03/2013 Inactive Aricept 5 mg tablet RxNorm: 545589 1 Tablet(s) PO daily 08/08/2012 02/03/2013 Inactive Plavix 75 mg tablet RxNorm: 236085 1 Tablet(s) PO daily 07/04/2012 11/30/2012 Inactive Mobic 15 mg tablet RxNorm: 159838 1/2 Tablet(s) PO daily 03/20/2012 04/13/2013 Inactive Namenda 10 mg tablet RxNorm: 367321 1 Tablet(s) PO BID 02/22/2012 04/11/2014 Inactive lorazepam 0.5 mg tablet RxNorm: 882784 1/2 Tablet(s) PO Q8 PRN 02/02/2012 11/13/2012 Inactive lisinopril 10 mg tablet RxNorm: 451640 1 Tablet(s) PO daily 01/24/2012 07/21/2012 Inactive lisinopril 10 mg tablet RxNorm: 355735 1/2 Tablet(s) PO daily 12/20/2011 01/23/2012 Inactive Aricept 5 mg tablet RxNorm: 812194 1 Tablet(s) PO daily 07/14/2011 08/06/2012 Inactive Mobic 15 mg tablet RxNorm: 389272 1 Tablet(s) PO daily 07/14/2011 03/19/2012 Inactive Bentyl 10 mg Cap RxNorm: 091296 1 Capsule(s) PO daily one pill daily and every 6 hours if needed for bowel spasms. 06/23/2011 03/20/2012 Inactive amlodipine 5 mg Tab RxNorm: 028016 2 Tablet(s) PO daily 03/08/2011 12/08/2011 Inactive ZOSTAVAX 19,400 unit Sub-Q Soln RxNorm: 0211736 SQ 02/2502/25/2011 Inactive Pneumovax 23 25 mcg/ 0.5 mL Injection RxNorm: 819763 Milliliter(s) Inj 02/16/2011 02/16/2011 In active Influenza Virus Vacc ine 0.5 mL RxNorm: IM 02/09/2011 02/09/2011 Inactive Namenda 10 mg tablet RxNorm: 827416 1 Tablet(s) PO BID 02/01/2011 02/21/2012 Inactive dicyclomine 10 mg ca psule RxNorm: 167226 capsule oral 01/20/2011 10/29/2013 Inactive Namenda 5 mg tablet RxNorm: 031770 tablet oral 01/20/2011 12/24/2013 Inactive dicyclomine 20 mg ta blet RxNorm: 693688 tablet oral 01/15/2011 10/29/2013 Inactive Flagyl 500 mg Tab RxNorm: 191453 1 Tablet(s) PO TID 01/07/2011 01/06/2011 Inactive Cipro 500 mg Tab RxNorm: 252886 1 Tablet(s) PO BID 01/07/2011 06/23/2011 Inactive Cipro 500 mg Tab RxNorm: 246153 1 Tablet(s) PO BID 01/07/2011 01/06/2011 Inactive Flagyl 500 mg Tab RxNorm: 846567 1 Tablet(s) PO TID 01/07/2011 06/23/2011 Inactive metronidazole 500 mg tablet RxNorm: 679673 tablet oral 01/07/2011 12/24/2013 Inactive sulfamethoxazole 400 mg-trimethoprim 80 mg tablet RxNorm: 857266 tablet oral 12/24/2010 03/10/2015 In active mirtazapine 15 mg ta blet RxNorm: 337404 tablet oral 11/14/2010 12/24/2013 Inactive lisinopril 10 mg tablet RxNorm: 418989 tablet oral 11/14/2010 12/24/2013 Inactive doxycycline hyclate 100 mg tablet RxNorm: 871811 tablet oral 11/04/2010 12/24/2013 Inactive diphenoxylate-atropi ne 2.5 mg-0.025 mg tablet RxNorm: 7034184 tablet oral 11/03/2010 10/29/2013 In active ciprofloxacin 500 mg tablet RxNorm: 497721 tablet oral 11/01/2010 10/29/2013 Inactive Miralax 17 gram/dose oral powder RxNorm: 557295 17 Gram(s) PO daily No Start Date Active ranitidine 150 mg ta blet RxNorm: 349368 1 Tablet(s) PO daily No Start Date Active alprazolam 0.25 mg t ablet RxNorm: 909029 1 Tablet(s) PO BID PRN No Start Date Active simvastatin 20 mg ta blet RxNorm: 431800 1 Tablet(s) PO daily No Start Date Active Vesicare 5 mg tablet RxNorm: 988311 1 Tablet(s) PO daily No Start Date Active bicalutamide 50 mg t ablet RxNorm: 997492 1 Tablet(s) PO daily No Start Date Active Phenergan 6.25 mg/5 mL syrup RxNorm: 294084 5-10 Milliliter(s) PO QID as needed No Start Date Active sulfamethoxazole 500 mg Tab RxNorm: 367327 1/2 Tablet(s) PO daily No Start Date 12/24/2013 Inactive Plavix 75 mg Tab RxNorm: 555838 1 Tablet(s) PO daily No Start Date 01/26/2011 Inactive aspirin 81 mg Cap, D elayed Release RxNorm: 695356 1 Capsule(s) PO daily No Start Date 01/04/2018 Inactive Bentyl 10 mg capsule RxNorm: 570478 1 Capsule(s) PO QID as needed per dr. tylor pereira No Start Date 01/04/2018 Inactive famotidine 20 mg tablet RxNorm: 322427 1 Tablet(s) PO BID prescribed in ER No Start Date 10/13/2017 Inactive hydrocodone 5 mg-alexey taminophen 325 mg tablet RxNorm: 247836 1 Tablet(s) PO Q6 as needed No Start Date 06/05/2014 Inactive Proscar 5 mg Tab RxNorm: 814222 1 Tablet(s) PO daily No Start Date 09/01/2015 Inactive Plavix 75 mg tablet RxNorm: 161356 1 Tablet(s) PO daily No Start Date 07/03/2012 Inactive albuterol sulfate 2. 5 mg/0.5 mL solution for nebulization RxNorm: 640953 1 inhale INH Q4H as needed No Start Date 05/20/2014 Inactive metoclopramide 5 mg tablet RxNorm: 958091 1 Tablet(s) PO AC & H S prescribed in ER No Start Date 01/04/2018 Inactive amlodipine 5 mg Tab RxNorm: 782115 1 Tablet(s) PO daily No Start Date 03/07/2011 Inactive Namenda 5 mg Tab RxNorm: 558334 1 Tablet(s) PO daily No Start Date 06/23/2011 Inactive Zyrtec 10 mg tablet RxNorm: 0480863 1 Tablet(s) PO daily No Start Date 01/04/2018 Inactive Allergy Relief (ceti rizine) oral RxNorm: 617294 oral No S tart Date 12/19/2016 Inactive fluocinonide 0.05 % Ointment RxNorm: 240325 1 TOP BID PRN No Start Date 12/24/2013 Inactive amlodipine 5 mg tablet RxNorm: 122174 1 Tablet(s) PO daily No Start Date 09/01/2014 Inactive lisinopril Oral RxNorm: Oral No Start Date 12/08/2011 Inactive simvastatin 20 mg Tab RxNorm: 319564 1 Tablet(s) PO daily No Start Date 06/06/2014 Inactive Bentyl 20 mg Tab RxNorm: 369411 1 Tablet(s) PO Q6 PRN No Start Date 06/23/[address] Ingrid Bentyl 10 mg Cap RxNorm: 366912 1 Capsule(s) PO BID No Start Date 06/22/2011 Inactive fluticasone 50 mcg/a ctuation nasal spray,suspension RxNorm: 8482177 1 [place] NASAL BID No Start Date 02/07/2018 Inactive Plavix 75 mg Tab RxNorm: 771501 1 Tablet(s) PO every other day No Start Date 08/24/2011 Inactive lorazepam 0.5 mg tablet RxNorm: 666966 1/2 Tablet(s) PO Q8 PRN No Start Date 02/01/2012 Inactive lisinopril 10 mg tablet RxNorm: 295160 1 Tablet(s) PO daily No Start Date 12/19/2011 Inactive Trulance 3 mg tablet RxNorm: 0476731 1 Tablet(s) PO QAM No Start Date 01/18/2018 Inactive Flomax 0.4 mg 24 hr Cap RxNorm: 459839 1 Capsule(s) PO daily No Start Date 05/28/2014 Inactive Aricept 5 mg Tab RxNorm: 302650 1 Tablet(s) PO daily No Start Date 07/13/2011 Inactive Vitamin D 1,000 unit Tab RxNorm: 883129 1 Tablet(s) PO daily No Start Date 01/04/2018 Inactive Levsin 0.125 mg tablet RxNorm: 0649616 1 Tablet(s) PO QID as needed FOR ABD REJI N No Start Date 11/04/2014 Inactive mirtazapine 7.5 mg t ablet RxNorm: 189875 1/2 Tablet(s) PO daily No Start Date 08/29/2013 Inactive Senior Vitamin Tab RxNorm: 1 Tablet(s) PO daily No Start Date 01/04/2018 Inactive Mobic 15 mg Tab RxNorm: 409523 1 Tablet(s) PO daily No Start Date 07/13/2011 Inactive Medication Administered Medication Codes Instruc tions Start Date Status Kenalog 40 mg/mL suspension for injection RxNorm: 3512957 Milliliter 11/25/2016 No longer Active Influenza Virus Vaccine 0.5 mL RxNorm: 02/06/2013 No longer Active ZOSTAVAX 19,400 unit Sub-Q Soln RxNo rm: [id number] 02/25/2011 No longer A ctive Pneumovax 23 25 mcg/0.5 mL Injection RxNorm: 186892 Milliliter 02/16/2011 No longer Active Influenza Virus [...] completed Assessments Condition Codes Effectiv e Dates Abrasion of left upper arm, initial encounter ICD-10: S40.812A ICD-9: 913.0 05/18/2018 Essential (primary) hypertension ICD -10: I10 ICD-9: 401.1 05/18/2018 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 ICD-9: 703.8 05/18/2018 Encounter for immunization ICD-10: Z 23 ICD-9: V04.81 02/08/2018 Other lesions of oral mucosa ICD-10: K13.79 ICD-9: 528.9 02/08/2018 Dry mouth, unspecified ICD-10: R68.2 ICD-9: 527.7 02/08/2018 Irritable bowel syndrome with constipation ICD-10: K58.1 ICD-9: 564.1 02/08/2018 Essential (primary) hypertension ICD -10: I10 ICD-9: 401.9 02/08/2018 Slow transit constipation ICD-10: K5 9.01 ICD-9: 564.01 01/19/2018 Acute pharyngitis, unspecified ICD-1 0: J02.9 ICD-9: 462 01/13/2018 Candidal stomatitis ICD-10: B37.0 ICD-9: 112.0 01/12/2018 Cough ICD-10: R05 ICD-9: 786.2 01/12/2018 Major depressive disorder, single episode, 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 ICD-9: 311 01/05/2018 Generalized anxiety disorder ICD-10: F41.1 ICD-9: 300.02 01/05/2018 Malignant neoplasm of prostate ICD-1 0: C61 ICD-9: 185 11/14/2017 Gastro-esophageal reflux disease without esophagitis ICD-10: K21.9 ICD-9: 530.81 2017 Underweight ICD-10: R63.6 ICD-9: 783.22 10/13/2017 Dysuria ICD-10: R30.0 ICD-9: 788.1 09/26/2017 Gastroparesis ICD-10: K31.84 ICD-9: 536.3 09/26/2017 Other abnormal glucose ICD-10: R73.0 9 ICD-9: 790.29 09/12/2017 Other fatigue ICD-10: R53.83 ICD-9: 780.79 09/09/2017 Unsteadiness on feet ICD-10: R26.81 ICD-9: 781.2 06/21/2017 Gas pain ICD-10: R14.1 ICD-9: 787.3 06/21/2017 Cervicalgia ICD-10: M54.2 ICD-9: 723.1 06/21/2017 Pain in thoracic spine ICD-10: M54.6 [...] tenderness ICD -10: R10.817 ICD-9: 789.67 01/26/2016 Mixed hyperlipidemia ICD-10: E78.2 ICD-9: 272.4 05/06/2015 Encounter for immunization ICD-10: Z 23 ICD-9: V03.9 05/06/2015 ESSENTIAL HYPERTENSION ICD-9: 401.9 12/04/2014 GENERALIZED ANXIETY DISEASE ICD-9: 300.02 12/04/2014 IRRITABLE COLON ICD-9: 564.1 12/04/2014 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 12/04/2014 Abdominal pain ICD-9: 789.00 09/24/2014 Hyponatremia [...] 10/08/2013 Coronary artery disease ICD-9: 414.00 06/18/2013 Leukopenia ICD-9: 288.50 02/19/2013 Encounter for long-term (current) use of other medicat ions ICD-9: V58.69 02/19/2013 VACCIN FOR INFLUENZA ICD-9: V04.81 02/06/2013 HYPERLIPIDEMIA ICD-9: 272.4 06/19/2012 BPH W URINARY OBS/LUTS ICD-9: 600.01 12/20/2011 Lump in the groin ICD-9: 789.30 12/09/2011 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 04/19/2011 DIVERTICULOSIS, COLON ICD-9: 562.10 04/19/2011 Laceration of finger, index ICD-9: 883.0 [...] 06/08/2018 Metabolic Ord15 CALCIUM 10.1 mg/dL 06/08/2018 Lipid Ord30 CHOL 133 mg/dL 04/10/2018 Lipid Ord30 HDL 49.0 mg/dl 04/10/2018 Lipid Ord30 TRIG 68 mg/dL 04/10/2018 Lipid Ord30 LDL 70 mg/dL 04/10/2018 Lipid Ord30 C/HDL 2.7 Ratio 04/10/2018 Comp Metabolic Rdq361 NA 143 mEq/L 04/10/2018 Comp Metabolic Zfw975 K 3.8 mEq/L 04/10/2018 Comp Metabolic Vvc496 CL 105 mEq/L 04/10/2018 Comp Metabolic Rhk311 CO2 30.0 mEq/L 04/10/2018 Comp Metabolic Qot330 AN ION GAP 12 04/10/2018 Comp Metabolic Uqx698 GL UCOSE 95 mg/dL 04/10/2018 Comp Metabolic Phl832 Cr eat 1.2 mg/dL 04/10/2018 Comp Metabolic Pzo999 eG FR 60 ml/min/1.73m2 04/10 Comp Metabolic Mqf095 BUN 22 mg/dL 04/10/2018 Comp Metabolic Xcp218 B/ C Ratio 18.2 Ratio 04/10/2018 Comp Metabolic Zwx561 CA LCIUM 10.3 mg/dL 04/10/2018 Comp Metabolic Qhh098 AL K PHOS 113 U/L 04/10/2018 Comp Metabolic Jjc221 T(SGOT) 30 U/L 04/10/2018 Comp Metabolic Ybk648 AL T(SGPT) 19 U/L 04/10/2018 Comp Metabolic Alc805 BI LI T 0.4 mg/dL 04/10/2018 Comp Metabolic Zhe360 AL BUMIN 4.2 g/dL 04/10/2018 Comp Metabolic Uch225 TP RO 6.5 g/dL 04/10/2018 Comp Metabolic Ftk861 GL OB 2.3 g/dL 04/10/2018 Comp Metabolic Bfi390 A/ G Ratio 1.8 Ratio 04/10/2018 Comp Metabolic Cbh198 Os mo 288 mOsmo 04/10/2018 C RAP A SC [id number] Strep A Negative 01/13/2018 Comp Metabolic Fwx424 NA 134 mEq/L 10/07/2017 Comp Metabolic Dyi204 K 4.5 mEq/L 10/07/2017 Comp Metabolic Gao357 CL 99 mEq/L 10/07/2017 Comp Metabolic Eqr405 CO2 31.0 mEq/L 10/07/2017 Comp Metabolic Rji531 AN ION GAP 9 10/07/2017 Comp Metabolic Ioc184 GL UCOSE 82 mg/dL 10/07/2017 Comp Metabolic Vry376 Cr eat 1.0 mg/dL 10/07/2017 Comp Metabolic Kpb750 eG FR 77 ml/min/1.73m2 10/07 Comp Metabolic Lls623 BUN 16 mg/dL 10/07/2017 Comp Metabolic Dzc104 B/ C Ratio 16.3 Ratio 10/07/2017 Comp Metabolic Rqp673 CA LCIUM 9.6 mg/dL 10/07/2017 Comp Metabolic Jei523 AL K PHOS 72 U/L 10/07/2017 Comp Metabolic Mwg870 T(SGOT) 21 U/L 10/07/2017 Comp Metabolic Zlv349 AL T(SGPT) 14 U/L 10/07/2017 Comp Metabolic Kdx805 BI LI T 0.4 mg/dL 10/07/2017 Comp Metabolic Xbz287 AL BUMIN 4.0 g/dL 10/07/2017 Comp Metabolic Ekz126 TP RO 5.7 g/dL 10/07/2017 Comp Metabolic Cfe501 GL OB 1.7 g/dL 10/07/2017 Comp Metabolic Fco301 A/ G Ratio 2.4 Ratio 10/07/2017 Comp Metabolic Adp142 Os mo 269 mOsmo 10/07/2017 Lipid Ord30 CHOL 135 mg/dL 10/07/2017 Lipid Ord30 HDL 69.0 mg/dl 10/07/2017 Lipid Ord30 TRIG 52 mg/dL 10/07/2017 Lipid Ord30 LDL 56 mg/dL 10/07/2017 Lipid Ord30 C/HDL 2.0 Ratio 10/07/2017 %Hba1C Yzg238 % HbA1c 59999-6 5.5 % 09/12/2017 %Hba1C Dbq891 Gluc Ave 111 mg/dL 09/12/2017 B12 Why186 B12 816.00 pg/ml 09/10/2017 Test(s) Not Perfromed Test(s) Not Performed Test(s) Not Performed. See B elow: 09/09/2017 Test(s) Not Perfromed TEST NAME VIT D 09/09/2017 Test(s) Not Perfromed Rejection Reason NO PAYABLE DX 018 Test(s) Not Perfromed COMMENT PATIENT SAID HE WAS TAKING SUPPLEMENT 09/09/2017 Test(s) Not Perfromed Computer Engineering Technician Tello Almeida 018 Lipid Ord30 CHOL 134 mg/dL 04/11/2017 Lipid Ord30 HDL 63.0 mg/dl 04/11/2017 Lipid Ord30 TRIG 45 mg/dL 04/11/2017 Lipid Ord30 LDL 62 mg/dL 04/11/2017 Lipid Ord30 C/HDL 2.1 Ratio 04/11/2017 Tsh Ord6 hTSH II 2.07 uIU/mL 04/11/2017 Body Fluid Crystals Source RIGHT ELBOW 6 Body Fluid Crystals CRYSTALS, BODY FLUID 02/18/2016 Uric Acid Body Fluid 332287 URIC ACID-FLUID 4.3 mg/dL 02/18/2016 Metabolic Ord15 [...] Ord30 C/HDL 2.4 Ratio 10/08/2015 Comp Metabolic Nzn504 NA 129 mEq/L 10/08/2015 Comp Metabolic Nza095 K 4.7 mEq/L 10/08/2015 Comp Metabolic Ejj579 CL 98 mEq/L 10/08/2015 Comp Metabolic Eru727 CO2 28.0 mEq/L 10/08/2015 Comp Metabolic Uia776 AN ION GAP 8 10/08/2015 Comp Metabolic Wjf308 GL UCOSE 84 mg/dL 10/08/2015 Comp Metabolic Cdm345 Cr eat 1.3 mg/dL 10/08/2015 Comp Metabolic Uov427 eG FR 56 ml/min/1.73m2 10/07 Comp Metabolic Vzr542 BUN 23 mg/dL 10/08/2015 Comp Metabolic Bpg367 B/ C Ratio 17.8 Ratio 10/08/2015 Comp Metabolic Sse342 CA LCIUM 9.3 mg/dL 10/08/2015 Comp Metabolic Jsa146 AL K PHOS 68 U/L 10/08/2015 Comp Metabolic Kjr495 T(SGOT) 24 U/L 10/08/2015 Comp Metabolic Egy257 AL T(SGPT) 15 U/L 10/08/2015 Comp Metabolic Lwx806 BI LI T 0.5 mg/dL 10/08/2015 Comp Metabolic Awv033 AL BUMIN 4.0 g/dL 10/08/2015 Comp Metabolic Bsu314 TP RO 5.9 g/dL 10/08/2015 Comp Metabolic Zvx989 GL OB 1.9 g/dL 10/08/2015 Comp Metabolic Icr709 A/ G Ratio 2.1 Ratio 10/08/2015 Comp Metabolic Kjo070 Os mo 262 mOsmo 10/08/2015 Lipid Ord30 CHOL 136 [...] hTSH II 4.07 uIU/mL 05/07/2015 Comp Metabolic Szi428 NA 132 mEq/L 05/07/2015 Comp Metabolic Yoi211 K 4.4 mEq/L 05/07/2015 Comp Metabolic Hzw096 CL 97 mEq/L 05/07/2015 Comp Metabolic Uuf072 CO2 30.0 mEq/L 05/07/2015 Comp Metabolic Jwm512 AN ION GAP 9 05/07/2015 Comp Metabolic Qoc057 GL UCOSE 78 mg/dL 05/07/2015 Comp Metabolic Ztf566 Cr eat 1.2 mg/dL 05/07/2015 Comp Metabolic Irv815 eG FR 60 ml/min/1.73m2 05/07 Comp Metabolic Xxc330 BUN 25 mg/dL 05/07/2015 Comp Metabolic Iqm576 B/ C Ratio 20.3 Ratio 05/07/2015 Comp Metabolic Brw025 CA LCIUM 9.6 mg/dL 05/07/2015 Comp Metabolic Eyt527 AL K PHOS 70 U/L 05/07/2015 Comp Metabolic Ziy906 T(SGOT) 27 U/L 05/07/2015 Comp Metabolic Lcf834 AL T(SGPT) 20 U/L 05/07/2015 Comp Metabolic Wia280 BI LI T 0.4 mg/dL 05/07/2015 Comp Metabolic Gsq895 AL BUMIN 4.0 g/dL 05/07/2015 Comp Metabolic Plh451 TP RO 5.8 g/dL 05/07/2015 Comp Metabolic Ewd453 GL OB 1.8 g/dL 05/07/2015 Comp Metabolic Zug130 A/ G Ratio 2.3 Ratio 05/07/2015 Comp Metabolic Oaa552 Os mo 268 mOsmo 05/07/2015 Comp Metabolic Pmu505 NA 134 mEq/L 12/10/2014 Comp Metabolic Euk465 K 4.8 mEq/L 12/10/2014 Comp Metabolic Xqz056 CL 101 mEq/L 12/10/2014 Comp Metabolic Kbe568 CO2 30.0 mEq/L 12/10/2014 Comp Metabolic Wdz695 AN ION GAP 8 12/10/2014 Comp Metabolic Cfk585 GL UCOSE 85 mg/dL 12/10/2014 Comp Metabolic Utd035 Cr eat 1.2 mg/dL 12/10/2014 Comp Metabolic Hfl331 eG FR 65 ml/min/1.73m2 12/10 Comp Metabolic Qgi927 BUN 25 mg/dL 12/10/2014 Comp Metabolic Hhc594 B/ C Ratio 21.7 Ratio 12/10/2014 Comp Metabolic Eho030 CA LCIUM 9.5 mg/dL 12/10/2014 Comp Metabolic Okl907 AL K PHOS 76 U/L 12/10/2014 Comp Metabolic Pjg606 T(SGOT) 27 U/L 12/10/2014 Comp Metabolic Tij811 AL T(SGPT) 18 U/L 12/10/2014 Comp Metabolic Ljd656 BI LI T 0.5 mg/dL 12/10/2014 Comp Metabolic Hzp290 AL BUMIN 4.1 g/dL 12/10/2014 Comp Metabolic Lcs140 TP RO 5.7 g/dL 12/10/2014 Comp Metabolic Umb817 GL OB 1.6 g/dL 12/10/2014 Comp Metabolic Hhd216 A/ G Ratio 2.6 Ratio 12/10/2014 Comp Metabolic Mry311 Os mo 272 mOsmo 12/10/2014 B12 Abh460 B12 1011.00 pg/ml 12/10/2014 Lipid Ord30 CHOL [...] With Differential Ord2 RDW 14.3 % 12/10/2014 FREE T4 7396620 FREE T4 1.18 NG/DL 02/19/2013 GFR CALC 2332009 GFR AA >60 ML/MIN 02/19/2013 GFR CALC 9726501 GFR NON -AA >60 ML/MIN 02/19/2013 TSH 7607009 TSH 2.094 uIU/ML 02/19/2013 CHEM 14 3700646 AST 30 U/L 02/19/2013 CHEM 14 7324826 ALT 19 IU/L 02/19/2013 CHEM 14 1000970 BUN 21 MG/DL 02/19/2013 CHEM 14 6476328 ALBUMIN 4.4 GM/DL 02/19/2013 CHEM 14 4748723 CHLORIDE 94 MMOL/L 02/19/2013 CHEM 14 7975310 BILI TOT 0.5 MG/DL 02/19/2013 CHEM 14 3330906 ALK PHOS 75 U/L 02/19/2013 CHEM 14 6671074 SODIUM 133 MMOL/L 02/19/2013 CHEM 14 8883683 CREATINI NE 1.07 MG/DL 02/19/2013 CHEM 14 6554786 CALCIUM 9.6 MG/DL 02/19/2013 CHEM 14 0528961 POTASSIUM 4.6 MMOL/L 02/19/2013 CHEM 14 1788165 PROT TOT 6.1 GM/DL 02/19/2013 CHEM 14 8559312 GLUCOSE 94 MG/DL 02/19/2013 CHEM 14 2254777 BICARB 31 MMOL/L 02/19/2013 CHEM 14 7485488 ANION GAP 8 MEQ/L 02/19/2013 CBC 1644658 WBC 4.1 10e9/L 02/19/2013 CBC 2685501 RBC 4.39 10e12/L 02/19/2013 CBC 5718492 HGB 14.1 g/dL 02/19/2013 CBC 8387830 HCT DET 41.0 % 02/19/2013 CBC 0075589 MCV 93.4 fL 02/19/2013 CBC 6575759 MCH 32.1 pg 02/19/2013 CBC 4394431 MCHC 34.4 g/dL 02/19/2013 CBC 5819438 PLT 151 10e9/L 02/19/2013 CBC 0428434 MPV 11.8 fL 02/19/2013 CBC 1865975 YOVANNY % 63.2 % 02/19/2013 CBC 4420577 LY % 22.9 % 02/19/2013 CBC 5800473 MON % 11.5 % 02/19/2013 CBC 9266733 EOS % 2.2 % 02/19/2013 CBC 4189592 BASO % 0.2 % 02/19/2013 CBC 2001749 RDW 13.8 % 02/19/2013 CBC 4748939 ABS YOVANNY 2.59 10e9/L 02/19/2013 CBC 6648753 ABS LYMPH 0.94 10e9/L 02/19/2013 CBC 5406968 ABS MONO 0.47 10e9/L 02/19/2013 CBC 1792476 ABS EOS 0.09 10e9/L 02/19/2013 CBC 8397146 ABS BASO 0.01 10e9/L 02/19/2013 CBC 9806846 RDW-SD 46.0 fL 02/19/2013 UA 62215 Specific [place] 1.015 DateTime(Free Text in Apr ) UA 05830 PH 6 DateTime(Free Text in ) UA 16439 GLUCOSE neg DateTime(Free Text in ) UA 53152 Protein neg DateTime(Free Text in Apr ) UA 53651 Blood neg DateTime(Free Text in ) UA 82901 Bilirubin neg DateTime(Free Text in ) UA 73549 Ketones neg DateTime(Free Text in ) UA 35351 Urobilinogen neg DateTime(Free Text in ) UA 60248 Nitrite neg DateTime(Free Text in ) UA 17904 Leukocytes neg DateTime(Free Text in ) Review [...] No mental status change 10/13/2017 Psychiatric anxiety 0611/2017 Psychiatric disturbances of memory 10/13/2017 Constitutional recent [...] accomodation 12/09/2011 None Full Exam - General 1995 Respiratory auscultation Overall: breath sounds clear bilaterally 12/09/2011 None Full Exam - General 1995 Respiratory respiratory effort/rhythm Overall: no retractions 12/09/2011 [...] VACC PRSV FREE I NC ANTIG CPT-4: 62185 02/08/2018 URINALYSIS NONAUTO W /O SCOPE CPT-4: 32512 09/26/2017 ADMIN INFLUENZA VIRU S VAC CPT-4: G0008 01/25/2017 FLU VACC PRSV FREE I NC ANTIG CPT-4: 12804 01/25/2017 THER/PROPH/DIAG INJ SC/IM CPT-4: 35052 11/25/2016 TRIAMCINOLONE ACET I [place] NOS CPT-4: J3301 11/25/2016 DRAIN/INJECT JOINT/B URSA CPT-4: 36125 02/17/2016 IMMUNIZATION ADMIN CPT- 4: 34830 05/06/2015 PNEUMOCOCCAL VACC 13 TIFFANIE IM Formatting Model/CDA Sections, Assigned to/Celia Minaya SNOMED CT: [id number] CPT-4: 96253Jvrnyyg 05/06/2015 ADMIN INFLUENZA VIRU S VAC CPT-4: G0008 02/19/2015 FLU VACC 4 TIFFANIE 3 YRS PLUS IM Formatting Model/CDA Sections, Assigned to SNOMED CT: [id number] CPT-4: 87468Ukgpgyo 02/19/2015 URINALYSIS NONAUTO W /O SCOPE CPT-4: 56127 05/23/2014 ADMIN INFLUENZA VIRU S VAC CPT-4: G0008 03/26/2014 FLU VAC NO PRSV 4 VA L 3 YRS+ Assigned to/Celia Minaya CPT-4: 09819Mikpjlt 03/26/2014 PRESCRIP TRANSMIT A ERX SY CPT-4: G8553 04/04/2013 ROUTINE VENIPUNCTURE CPT-4: 40800 02/19/2013 ADMIN INFLUENZA VIRU S VAC CPT-4: G0008 02/06/2013 FLULAVAL VACC, 3 YRS & >, IM CPT-4: Q2036 02/06/2013 59864 EST. PATIENT, LEVEL IV CPT-4: 34860 06/19/2012 PRESCRIP TRANSMIT A ERX SY CPT-4: G8553 06/19/2012 PRESCRIP TRANSMIT A ERX SY CPT-4: G8553 03/20/2012 PRESCRIP TRANSMIT A ERX SY CPT-4: G8553 06/23/2011 IMMUNIZATION ADMIN CPT- 4: 17918 02/25/2011 ZOSTER VACC SC (No lloyd angelo, patient supplied vaccine) CPT-4: 22060UO 02/25/2011 ADMIN PNEUMOCOCCAL V ACCINE SNOMED CT: 00886925 CPT-4: G0009 02/16/2011 Pneumococcal Polysac charide Vaccine, 23-Valent, Ad CPT-4: 51066 02/16/2011 ADMIN INFLUENZA VIRU S VAC CPT-4: G0008 02/09/2011 FLULAVAL VACC, 3 YRS & >, IM CPT-4: Q2036 02/09/2011 PRESCRIP TRANSMIT A ERX SY CPT-4: G8553 02/01/2011 URINALYSIS NONAUTO W /O SCOPE CPT-4: 73986 01/27/2011 Vital Signs Date Vital 05/18/2018 Blood Pressure 1: 142/64 Code: 8480-6 BMI: 19.9 Code: 02218-0 Heart Rate 1: 52 bpm Height: 5'9" SpO2: 98% Weight: 135 lbs 04/13/2018 Blood Pressure 1: 128/58 Code: 8480-6 BMI: 21.0 Code: 80658-5 Heart Rate 1: 83 bpm Height: 5'9" SpO2: 94% Weight: 142 lbs 02/08/2018 Blood Pressure 1: 136/76 Code: 8480-6 BMI: 19.9 Code: 66654-2 Heart Rate 1: 78 bpm Height: 5'9" SpO2: 99% Weight: 135 lbs 01/19/2018 Blood Pressure 1: 114/78 Code: 8480-6 BMI: 19.9 Code: 55577-5 Heart Rate 1: 80 bpm Height: 5'9" SpO2: 98% Weight: 135 lbs 01/12/2018 Blood Pressure 1: 130/78 Code: 8480-6 BMI: 19.8 Code: 33729-7 Heart Rate 1: 85 bpm Height: 5'9" SpO2: 97% Weight: 134 lbs 01/05/2018 Blood Pressure 1: 122/70 Code: 8480-6 BMI: 19.6 Code: 48513-7 Heart Rate 1: 87 bpm Height: 5'9" SpO2: 96% Weight: 133 lbs 11/14/2017 Blood Pressure 1: 130/70 Code: 8480-6 BMI: 19.5 Code: 61412-5 Heart Rate 1: 75 bpm Height: 5'9" SpO2: 98% Weight: 132 lbs 2017 Blood Pressure 1: 116/70 Code: 8480-6 BMI: 19.5 Code: 00878-6 Heart Rate 1: 55 bpm Height: 5'9" SpO2: 95% Weight: 132 lbs 10/13/2017 Blood Pressure 1: 130/70 Code: 8480-6 BMI: 19.3 Code: 33357-8 Heart Rate 1: 67 bpm Height: 5'9" SpO2: 98% Weight: 131 lbs 09/26/2017 Blood Pressure 1: 126/70 Code: 8480-6 BMI: 19.1 Code: 10977-6 Heart Rate 1: 66 bpm Height: 5'9" SpO2: 100% Weight: 129 lbs 8 oz 09/12/2017 Blood Pressure 1: 120/70 Code: 8480-6 BMI: 19.5 Code: 73047-9 Heart Rate 1: 83 bpm Height: 5'9" SpO2: 99% Weight: 132 lbs 09/09/2017 Blood Pressure 1: 126/70 Code: 8480-6 BMI: 19.3 Code: 26364-2 Heart Rate 1: 80 bpm Height: 5'9" SpO2: 98% Weight: 131 lbs 08/17/2017 Blood Pressure 1: 130/74 Code: 8480-6 BMI: 19.6 Code: 28278-8 Heart Rate 1: 72 bpm Height: 5'9" SpO2: 98% Weight: 133 lbs 07/20/2017 Blood Pressure 1: 124/62 Code: 8480-6 BMI: 19.8 Code: 48533-2 Heart Rate 1: 65 bpm Height: 5'9" SpO2: 96% Weight: 134 lbs 07/01/2017 Blood Pressure 1: 134/64 Code: 8480-6 BMI: 21.0 Code: 20383-4 Height: 5'9" Weight: 142 lbs 06/21/2017 Blood Pressure 1: 142/80 Code: 8480-6 BMI: 21.0 Code: 08776-6 Heart Rate 1: 63 bpm Height: 5'9" SpO2: 98% Weight: 142 lbs 03/21/2017 Blood Pressure 1: 128/66 Code: 8480-6 BMI: 20.8 Code: 41597-4 Heart Rate 1: 61 bpm Height: 5'9" SpO2: 98% Weight: 141 lbs 03/08/2017 Blood Pressure 1: 134/68 Code: 8480-6 BMI: 20.4 Code: 43900-8 Heart Rate 1: 56 bpm Height: 5'9" SpO2: 99% Weight: 138 lbs 01/25/2017 Blood Pressure 1: 98/62 Code: 8480-6 BMI: 20.6 Code: 50375-2 Heart Rate 1: 71 bpm Height: 5'9" SpO2: 97% Weight: 139 lbs 8 oz 12/20/2016 Blood Pressure 1: 120/68 Code: 8480-6 BMI: 20.4 Code: 12911-8 Heart Rate 1: 70 bpm Height: 5'9" [...] 1: 120/60 Code: 8480-6 BMI: 20.7 Code: 71447-0 Heart Rate 1: 74 bpm Height: 5'9" SpO2: 95% Weight: 140 lbs 08/23/2016 Blood Pressure 1: 118/68 Code: 8480-6 BMI: 20.8 Code: 63573-1 Heart Rate 1: 54 bpm Height: 5'9" SpO2: 97% Weight: 141 lbs 04/26/2016 Blood Pressure 1: 108/64 Code: 8480-6 BMI: 21.0 Code: 77994-6 Heart Rate 1: 62 bpm Height: 5'9" SpO2: 95% Weight: 142 lbs 02/17/2016 Blood Pressure 1: 138/80 Code: 8480-6 BMI: 20.2 Code: 48841-4 Heart Rate 1: 76 bpm Height: 5'9" SpO2: 97% Weight: 137 lbs 02/09/2016 Blood Pressure 1: 140/76 Code: 8480-6 BMI: 20.2 Code: 34496-6 Heart Rate 1: 72 bpm Height: 5'9" SpO2: 96% Weight: 137 lbs 02/03/2016 Blood Pressure 1: 136/80 Code: 8480-6 BMI: 20.7 Code: 96130-2 Heart Rate 1: 86 bpm Height: 5'9" SpO2: 96% Weight: 140 lbs 01/26/2016 Blood Pressure 1: 144/78 Code: 8480-6 BMI: 20.7 Code: 02868-9 Heart Rate 1: 73 bpm Height: 5'9" SpO2: 97% Temperature: 37.0 (C ) / 98.6 (F) Weight: 140 lbs 01/21/2016 Blood Pressure 1: 116/62 Code: 8480-6 BMI: 20.4 Code: 00883-1 Heart Rate 1: 66 bpm Height: 5'9" SpO2: 97% Weight: 138 lbs 12/29/2015 Blood Pressure 1: 130/74 Code: 8480-6 BMI: 20.4 Code: 27817-7 Heart Rate 1: 51 bpm Height: 5'9" SpO2: 98% Weight: 138 lbs 09/02/2015 Blood Pressure 1: 126/60 Code: 8480-6 BMI: 22.3 Code: 06778-9 Heart Rate 1: 55 bpm Height: 5'9" SpO2: 96% Weight: 151 lbs 05/06/2015 Blood Pressure 1: 132/72 Code: 8480-6 BMI: 21.0 Code: 51851-3 Heart Rate 1: 63 bpm Height: 5'9" SpO2: 97% Weight: 142 lbs 03/05/2015 Blood Pressure 1: 130/68 Code: 8480-6 BMI: 21.0 Code: 90836-8 Heart Rate 1: 61 bpm Height: 5'9" SpO2: 96% Weight: 142 lbs 12/04/2014 Blood Pressure 1: 122/64 Code: 8480-6 BMI: 21.3 Code: 77986-4 Heart Rate 1: 72 bpm Height: 5'9" Weight: 144 lbs 09/24/2014 Blood Pressure 1: 142/80 Code: 8480-6 BMI: 20.4 Code: 42252-4 Heart Rate 1: 80 bpm Height: 5'9" Weight: 138 lbs 09/09/2014 Blood Pressure 1: 122/74 Code: 8480-6 BMI: 20.5 Code: 14059-4 Heart Rate 1: 64 bpm Height: 5'9" Weight: 139 lbs 07/26/2014 Blood Pressure 1: 136/82 Code: 8480-6 BMI: 20.4 Code: 24268-6 Heart Rate 1: 87 bpm Height: 5'9" SpO2: 92% Weight: 138 lbs 07/10/2014 Blood Pressure 1: 130/74 Code: 8480-6 BMI: 21.1 Code: 77358-2 Heart Rate 1: 64 bpm Height: 5'9" Weight: 143 lbs 06/06/2014 Blood Pressure 1: 142/88 Code: 8480-6 BMI: 20.4 Code: 86893-1 Heart Rate 1: 68 bpm Height: 5'9" Weight: 138 lbs 05/29/2014 Blood Pressure 1: 108/72 Code: 8480-6 BMI: 20.5 Code: 24389-6 Heart Rate 1: 60 bpm Height: 5'9" Weight: 139 lbs 05/20/2014 Blood Pressure 1: 140/72 Code: 8480-6 BMI: 21.6 Code: 57770-9 Heart Rate 1: 60 bpm Height: 5'9" SpO2: 98% Temperature: 36.2 (C ) / 97.2 (F) Weight: 146 lbs 03/25/2014 Blood Pressure 1: 128/60 Code: 8480-6 BMI: 21.4 Code: 40099-7 Heart Rate 1: 62 bpm Height: 5'9" Weight: 145 lbs 02/08/2014 Blood Pressure 1: 136/82 Code: 8480-6 BMI: 21.3 Code: 71915-3 Heart Rate 1: 68 bpm Height: 5'9" Weight: 144 lbs 12/24/2013 Blood Pressure 1: 122/76 Code: 8480-6 BMI: 21.6 Code: 57262-0 Heart Rate 1: 58 bpm Height: 5'9" Weight: 146 lbs 11/20/2013 Blood Pressure 1: 112/62 Code: 8480-6 BMI: 20.7 Code: 93421-6 Heart Rate 1: 56 bpm Height: 5'9" Weight: 140 lbs 10/30/2013 Blood Pressure 1: 130/68 Code: 8480-6 BMI: 20.1 Code: 18634-8 Heart Rate 1: 68 bpm Height: 5'9" SpO2: 96% Weight: 136 lbs 10/08/2013 Blood Pressure 1: 128/72 Code: 8480-6 BMI: 20.8 Code: 04783-7 Heart Rate 1: 60 bpm Height: 5'9" Temperature: 36.6 (C ) / 97.8 (F) Weight: 141 lbs 06/18/2013 Blood Pressure 1: 124/78 Code: 8480-6 BMI: 20.8 Code: 91087-1 Heart Rate 1: 64 bpm Height: 5'9" Weight: 141 lbs 04/04/2013 Blood Pressure 1: 138/60 Code: 8480-6 BMI: 20.8 Code: 25981-5 Heart Rate 1: 56 bpm Height: 5'9" Weight: 141 lbs 02/19/2013 Blood Pressure 1: 152/74 Code: 8480-6 BMI: 21.0 Code: 53104-2 Heart Rate 1: 60 bpm Height: 5'9" Weight: 142 lbs 10/16/2012 Blood Pressure 1: 122/70 Code: 8480-6 BMI: 20.8 Code: 12506-7 Heart Rate 1: 64 bpm Height: 5'9" Weight: 141 lbs 06/19/2012 Blood Pressure 1: 120/72 Code: 8480-6 BMI: 21.1 Code: 43490-9 Heart Rate 1: 60 bpm Height: 5'9" Weight: 143 lbs 03/20/2012 Blood Pressure 1: 114/76 Code: 8480-6 Heart Rate 1: 60 bpm Respiratory Rate: 16 bpm Weight: 143 lbs 01/24/2012 Blood Pressure 1: 134/70 Code: 8480-6 Heart Rate 1: 64 bpm Weight: 143 lbs 12/20/2011 Blood Pressure 1: 98/72 Code: 8480-6 BMI: 21.1 Code: 08419-9 Heart Rate 1: 60 bpm Height: 5'9" Respiratory Rate: 16 bpm Weight: 143 lbs 12/09/2011 Blood Pressure 1: 110/60 Code: 8480-6 Heart Rate 1: 66 bpm SpO2: 98% Weight: 141 lbs 08/25/2011 Blood Pressure 1: 112/70 Code: 8480-6 BMI: 20.8 Code: 09103-6 Heart Rate 1: 54 bpm Height: 5'9" Respiratory Rate: 16 bpm Weight: 141 lbs 06/23/2011 Blood Pressure 1: 126/64 Code: 8480-6 Heart Rate 1: 60 bpm Respiratory Rate: 16 bpm Weight: 142 lbs 04/19/2011 Blood Pressure 1: 124/64 Code: 8480-6 BMI: 21.1 Code: 88110-8 Heart Rate 1: 64 bpm Height: 5'9" Respiratory Rate: 16 bpm Weight: 143 lbs 03/23/2011 Blood Pressure 1: 137/71 Code: 8480-6 Heart Rate 1: 57 bpm 03/08/2011 Blood Pressure 1: 154/70 Code: 8480-6 BMI: 20.8 Code: 55186-3 Heart Rate 1: 60 bpm Height: 5'9" Respiratory Rate: 16 bpm Weight: 141 lbs 03/01/2011 Blood Pressure 1: 178/80 Code: 8480-6 Blood Pressure 2: 168/70 Code: 8480-6 BMI: 24.1 Code: 80288-7 Heart Rate 1: 60 bpm Height: 5'9" Respiratory Rate: 16 bpm Weight: 163 lbs 02/01/2011 Blood Pressure 1: 162/84 Code: 8480-6 Heart Rate 1: 60 bpm Respiratory Rate: 16 bpm Weight: 144 lbs 01/27/2011 Blood Pressure 1: 138/54 Code: 8480-6 BMI: 21.1 Code: 33889-2 Heart Rate 1: 68 bpm Height: 5'9" Respiratory Rate: 16 bpm Weight: 143 lbs 01/26/2011 Blood Pressure 1: 148/86 Code: 8480-6 BMI: 21.3 Code: 39988-6 Heart Rate 1: 74 bpm Height: 5'9" Weight: 144 lbs 01/15/2011 Blood Pressure 1: 136/76 Code: 8480-6 BMI: 20.5 Code: 85568-6 Heart Rate 1: 70 bpm Height: 5'10" Weight: 141 lbs 01/06/2011 Blood Pressure 1: 148/72 Code: 8480-6 BMI: 20.2 Code: 90573-8 Heart Rate 1: 72 bpm Height: 5'10" [...] s cardiac disease 08/25/2011 None hypertension [facility] 06/23/2011 None hypertension Onset [...] started him o n lisinopril. hypertension [facility] 03/08/2011 Dr Merlos increased amlod [...] Encounters Encounter Performer Loca tion Codes Date ([id number]) [id number] EST. P ATIENT, LEVEL IV Diagnosis: Essential (primary) hypertension[ICD10: I10] Diagnosis: Nail dystrophy[ICD10: L60.3] Diagnosis: Abrasion of left upper arm, initial encounter[ICD10: S40.812A] Ale Carlos MD, [facility] CPT-4: 87760 05/18/2018 [id number]) [id number] EST. P ATIENT, LEVEL III Diagnosis: Essential (primary) hypertension[ICD10: I10] Ale Carlos MD, C CPT-4: 58680 04/13/2018 [id number]) [id number] EST. P ATIENT, LEVEL IV Diagnosis: Irritable bowel syndrome with constipation[ICD10: K58.1] Diagnosis: Other lesions of oral mucosa[ICD10: K13.79] Diagnosis: Dry mouth, unspecified[ICD10: R68.2] Diagnosis: Encounter for immunization[ICD10: Z23] Diagnosis: Essential (primary) hypertension[ICD10: I10] Ale Carlos MD, C CPT-4: 99770 02/08/2018 ([id number]) 84307 EST. P ATIENT, LEVEL III Diagnosis: Slow transit constipation[ICD10: K59.01] Diagnosis: Dry mouth, unspecified[ICD10: R68.2] Nelly Carlos MD, [facility] CPT-4: 93954 01/19/2018 ([id number]) Miscellaneou s no charge Diagnosis: Acute pharyngitis, unspecified[ICD10: J02.9] Nelly Carlos MD, [facility] CPT-4: 04898 01/13/2018 ([id number]) 68712 EST. P ATIENT, LEVEL III Diagnosis: Candidal stomatitis[ICD10: B37.0] Diagnosis: Cough[ICD10: R05] Nelly Carlos MD, [facility] CPT-4: 89124 01/12/2018 ([id number]) 23246 EST. P ATIENT, LEVEL IV Diagnosis: Essential (primary) hypertension[ICD10: I10] Diagnosis: Generalized anxiety disorder[ICD10: F41.1] Diagnosis: Major depressive disorder, single episode, mild[ICD10: F32.0] Diagnosis: Slow transit constipation[ICD10: K59.01] Ale Carlos MD, [facility] CPT-4: 36023 01/05/2018 ([id number]) 92309 EST. P ATIENT, LEVEL IV Diagnosis: Irritable bowel syndrome with constipation[ICD10: K58.1] Diagnosis: Malignant neoplasm of prostate[ICD10: C61] Ale Carlos MD, [facility] CPT-4: 48351 11/14/2017 [id number] EST. PATIENT, LEVEL IV Diagnosis: Slow transit constipation[ICD10: K59.01] Diagnosis: Gastro-esophageal reflux disease without esophagitis[ICD10: K21.9] Ruchi Carlos MD, [facility] CPT-4: 26641 2017 ([id number]) 03376 EST. P ATIENT, LEVEL IV Diagnosis: Essential (primary) hypertension[ICD10: I10] Diagnosis: Slow transit constipation[ICD10: K59.01] Diagnosis: Underweight[ICD10: R63.6] Diagnosis: Gastro-esophageal reflux disease without esophagitis[ICD10: K21.9] Ale Carlos MD, [facility] CPT-4: 50575 10/13/2017 ([id number]) 50773 EST. P ATIENT, LEVEL IV Diagnosis: Slow transit constipation[ICD10: K59.01] Diagnosis: Gastroparesis[ICD10: K31.84] Diagnosis: Gastro-esophageal reflux disease without esophagitis[ICD10: K21.9] Diagnosis: Dysuria[ICD10: R30.0] Ale Carlos MD, [facility] CPT-4: 97225 09/26/2017 ([id number]) 60683 EST. P ATIENT, LEVEL IV Diagnosis: Other abnormal glucose[ICD10: R73.09] Diagnosis: Slow transit constipation[ICD10: K59.01] Ale Carlos MD, [facility] CPT-4: 29338 09/12/2017 15112 EST. PATIENT, LEVEL III Diagnosis: Other fatigue[ICD10: R53.83] Ruchi Carlos MD, [facility] CPT-4: 54476 09/09/2017 ([id number]) 50166 EST. P ATIENT, LEVEL IV Diagnosis: Slow transit constipation[ICD10: K59.01] Diagnosis: Irritable bowel syndrome with constipation[ICD10: K58.1] Diagnosis: Essential (primary) hypertension[ICD10: I10] Ale Carlos MD, [facility] CPT-4: 05265 08/17/2017 ([id number]) 99256 EST. P ATIENT, LEVEL III Diagnosis: Slow transit constipation[ICD10: K59.01] Diagnosis: Gastroparesis[ICD10: K31.84] Ale Carlos MD, [facility] CPT-4: 17936 07/20/2017 79664 EST. PATIENT, LEVEL III Diagnosis: Irritable bowel syndrome with constipation[ICD10: K58.1] Ruchi Carlos MD, [facility] CPT-4: 04802 07/01/2017 ([id number]) 39478 EST. P ATIENT, LEVEL IV Diagnosis: Essential (primary) hypertension[ICD10: I10] Diagnosis: Gas pain[ICD10: R14.1] Diagnosis: Generalized anxiety disorder[ICD10: F41.1] Diagnosis: Cervicalgia[ICD10: M54.2] Diagnosis: Pain in thoracic spine[ICD10: M54.6] Diagnosis: Unsteadiness on feet[ICD10: R26.81] Ale Carlos MD, [facility] CPT- 4: 36445 06/21/2017 ([id number]) 85137 EST. P ATIENT, LEVEL III Diagnosis: Essential (primary) hypertension[ICD10: I10] Ale Carlos MD, [facility] CPT-4: 42989 03/21/2017 62736 EST. PATIENT, LEVEL III Diagnosis: Other allergic rhinitis[ICD10: J30.89] Nelly Carlos MD, [facility] CPT-4: 48580 03/08/2017 ([id number]) 25299 EST. P ATIENT, LEVEL III Diagnosis: Encounter for immunization[ICD10: Z23] Diagnosis: Other hypotension[ICD10: I95.89] Ale Carlos MD [facility] CPT-4: 35741 01/25/2017 ([id number]) 24108 EST. P ATIENT, LEVEL III Diagnosis: Essential (primary) hypertension[ICD10: I10] Diagnosis: Acute recurrent maxillary sinusitis[ICD10: J01.01] Ale Carlos MD, C CPT-4: 78147 12/20/2016 ([id number]) 02623 EST. P ATIENT, LEVEL III Diagnosis: Acute recurrent ethmoidal sinusitis[ICD10: J01.21] Ale Carlos MD, C CPT-4: 68282 12/01/2016 ([id number]) 22070 EST. P ATIENT, LEVEL III Diagnosis: Bronchitis, not specified as acute or chronic[ICD10: J40] Diagnosis: Cough[ICD10: R05] Ale Carlos MD, [facility] CPT-4: 71784 11/25/2016 ([id number]) 07746 EST. P ATIENT, LEVEL III Diagnosis: Cough[ICD10: R05] Diagnosis: Bronchitis, not specified as acute or chronic[ICD10: J40] Diagnosis: Candidal esophagitis[ICD10: B37.81] Ale Carlos MD, [facility] CPT- 4: 59703 11/18/2016 ([id number]) 07924 EST. P ATIENT, LEVEL IV Diagnosis: Essential (primary) hypertension[ICD10: I10] Diagnosis: Mild cognitive impairment, so stated[ICD10: G31.84] Ale Carlos MD, [facility] CPT-4: 64175 08/23/2016 ([id number]) 86816 EST. P ATIENT, LEVEL III Diagnosis: Essential (primary) hypertension[ICD10: I10] Ale Carlos MD, [facility] CPT-4: 92191 04/26/2016 ([id number]) Miscellaneou s no charge Diagnosis: Olecranon bursitis, right elbow[ICD10: M70.21] Nelly Carlos MD, [facility] CPT-4: 65362 02/09/2016 ([id number]) 34384 EST. P ATIENT, LEVEL III Diagnosis: Olecranon bursitis, right elbow[ICD10: M70.21] Nelly Carlos MD, [facility] CPT-4: 35384 02/03/2016 ([id number]) 26461 EST. P ATIENT, LEVEL III Diagnosis: Generalized abdominal tenderness[ICD10: R10.817] Ale Carlos MD, [facility] CPT-4: 47676 01/26/2016 32844 EST. PATIENT, LEVEL IV Diagnosis: Other allergic rhinitis[ICD10: J30.89] Ruchi Carlos MD, [facility] CPT-4: 69302 01/21/2016 ([id number]) 62119 EST. P ATIENT, LEVEL IV Diagnosis: Essential (primary) hypertension[ICD10: I10] Diagnosis: Hypo-osmolality and hyponatremia[ICD10: E87.1] Ale Carlos MD, [facility] CPT-4: 03686 12/29/2015 ([id number]) 75209 EST. P ATIENT, LEVEL IV Diagnosis: Essential (primary) hypertension[ICD10: I10] Diagnosis: Mild cognitive impairment, so stated[ICD10: G31.84] Ale Carlos MD, [facility] CPT-4: 28693 09/02/2015 ([id number]) 33893 EST. P ATIENT, LEVEL IV Diagnosis: Mixed hyperlipidemia[ICD10: E78.2] Diagnosis: Generalized anxiety disorder[ICD10: F41.1] Diagnosis: Mild cognitive impairment, so stated[ICD10: G31.84] Diagnosis: Essential (primary) hypertension[ICD10: I10] Diagnosis: Encounter for immunization[ICD10: Z23] Ale Carlos MD, [facility] CPT-4: 04612 05/06/2015 ([id number]) 43470 EST. 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 P ATIENT, LEVEL IV Diagnosis: ESSENTIAL HYPERTENSION[ICD9: 401.9] Diagnosis: GENERALIZED ANXIETY DISEASE[ICD9: 300.02] Diagnosis: MILD COGNITIVE IMPAIREMT[ICD9: 331.83] Diagnosis: IRRITABLE COLON[ICD9: 564.1] Ale Carlos MD, [facility] CPT-4: 08932 12/04/2014 ([id number]) 68370 EST. P ATIENT, LEVEL IV Diagnosis: Abdominal pain[ICD9: 789.00] Diagnosis: GENERALIZED ANXIETY DISEASE[ICD9: 300.02] Diagnosis: Hyponatremia[ICD9: 276.1] Diagnosis: ESSENTIAL HYPERTENSION[ICD9: 401.9] Nelly Carlos MD, [facility] CPT-4: 68554 09/24/2014 ([id number]) 04081 EST. P ATIENT, LEVEL IV Diagnosis: ESSENTIAL HYPERTENSION[ICD9: 401.9] Diagnosis: Osteoarthritis[ICD9: 715.90] Diagnosis: Mild cognitive impairment with memory loss[ICD9: 331.83] Ale Carlos MD, [facility] CPT-4: 00923 09/09/2014 ([id number]) 74977 EST. P ATIENT, LEVEL III Diagnosis: GENERALIZED ANXIETY DISEASE[ICD9: 300.02] Diagnosis: Depression[ICD9: 311] Ale Carlos MD, [facility] CPT-4: 22084 07/26/2014 ([id number]) 11761 EST. P ATIENT, LEVEL IV Diagnosis: ESSENTIAL HYPERTENSION[ICD9: 401.9] Diagnosis: GENERALIZED ANXIETY DISEASE[ICD9: 300.02] Diagnosis: MILD COGNITIVE IMPAIREMT[ICD9: 331.83] Ale Carlos MD, [facility] CPT-4: 92280 07/10/2014 ([id number]) 07376 EST. P ATIENT, LEVEL IV Diagnosis: Dizziness[ICD9: 780.4] Diagnosis: GENERALIZED ANXIETY DISEASE[ICD9: 300.02] Diagnosis: Depression[ICD9: 311] Diagnosis: ESSENTIAL HYPERTENSION[ICD9: 401.9] Diagnosis: Urinary frequency[ICD9: 788.41] Ale Carlos MD, [facility] CPT-4: 93681 06/06/2014 ([id number]) 14617 EST. P ATIENT, LEVEL IV Diagnosis: ESSENTIAL HYPERTENSION[ICD9: 401.9] Diagnosis: GENERALIZED ANXIETY DISEASE[ICD9: 300.02] Diagnosis: Mild cognitive impairment with memory loss[ICD9: 331.83] Ale Carlos MD, [facility] CPT-4: 08471 05/29/2014 ([id number]) 87547 EST. P ATIENT, LEVEL IV Diagnosis: Pneumonia[ICD9: 486] Diagnosis: COUGH[ICD9: 786.2] Diagnosis: Hyponatremia[ICD9: 276.1] Diagnosis: ALLERGIC RHINITIS[ICD9: 477.9] Ale Carlos MD, [facility] CPT-4: 39742 05/20/2014 ([id number]) 17013 EST. P ATIENT, LEVEL III Diagnosis: ESSENTIAL HYPERTENSION[ICD9: 401.9] Diagnosis: Cough[ICD9: 786.2] Ale Carlos MD, [facility] CPT-4: 02185 03/25/2014 ([id number]) 38495 EST. P ATIENT, LEVEL III Diagnosis: COUGH[ICD9: 786.2] Diagnosis: ALLERGIC RHINITIS[ICD9: 477.9] Nelly Carlos MD, [facility] CPT- 4: 65947 02/08/2014 ([id number]) 87794 EST. P ATIENT, LEVEL III Diagnosis: ESSENTIAL HYPERTENSION[ICD9: 401.9] Diagnosis: Nasal congestion[ICD9: 478.19] Ale Carlos MD, [facility] CPT-4: 52439 12/24/2013 ([id number]) 18303 EST. P ATIENT, LEVEL III Diagnosis: Seasonal allergies[ICD9: 477.9] Diagnosis: Nasal congestion[ICD9: 478.19] Diagnosis: ABNORMAL LOSS OF WEIGHT[ICD9: 783.21] Ale Carlos MD, [facility] CPT-4: 12662 11/20/2013 ([id number]) 74983 EST. P ATIENT, LEVEL III Diagnosis: ABNORMAL LOSS OF WEIGHT[ICD9: 783.21] Diagnosis: MALAISE AND FATIGUE[ICD9: 780.79] Diagnosis: Hyponatremia[ICD9: 276.1] Nelly Carlos MD, [facility] CPT- 4: 75644 10/30/2013 ([id number]) 60652 EST. P ATIENT, LEVEL III Diagnosis: Acute maxillary sinusitis[ICD9: 461.0] Diagnosis: COUGH[ICD9: 786.2] Ale Carlos MD, [facility] CPT-4: 35429 10/08/2013 ([id number]) 49689 EST. P ATIENT, LEVEL IV Diagnosis: ESSENTIAL HYPERTENSION[SNOMED: 20727183] Diagnosis: GENERALIZED ANXIETY DISEASE[ICD9: 300.02] Diagnosis: OSTEOARTH NOS-UNSPEC[ICD9: 715.90] Diagnosis: Coronary artery disease[ICD9: 414.00] Ale Carlos MD, [facility] CPT-4: 97902 06/18/2013 ([id number]) 35290 EST. P ATIENT, LEVEL III Diagnosis: ESSENTIAL HYPERTENSION[SNOMED: 18984456] Ale Carlos MD, [facility] CPT-4: 69679 04/04/2013 ([id number]) 18389 EST. P ATIENT, LEVEL IV Diagnosis: ESSENTIAL HYPERTENSION[SNOMED: 42541469] Diagnosis: Leukopenia[ICD9: 288.50] Diagnosis: Encounter for long-term (current) use of other medications[ICD9: V58.69] Ale Carlos MD, [facility] CPT-4: 58834 02/19/2013 ([id number]) 66961 EST. P ATIENT, LEVEL IV Diagnosis: ESSENTIAL HYPERTENSION[SNOMED: 79833114] Diagnosis: MILD COGNITIVE IMPAIREMT[ICD9: 331.83] Ale Carlos MD, [facility] CPT-4: 38905 10/16/2012 ([id number]) 98009 EST. P ATIENT, LEVEL IV Diagnosis: ESSENTIAL HYPERTENSION[SNOMED: 77509726] Diagnosis: GENERALIZED ANXIETY DISEASE[ICD9: 300.02] Diagnosis: IRRITABLE COLON[ICD9: 564.1] Ale Carlos MD, [facility] CPT-4: 70098 03/20/2012 23721 EST. PATIENT, LEVEL IV Diagnosis: ESSENTIAL HYPERTENSION[SNOMED: 31725248] Diagnosis: Osteoarthritis[ICD9: 715.90] Diagnosis: HYPERLIPIDEMIA[ICD9: 272.4] Ale Carlos MD, [facility] CPT-4: 63571 01/24/2012 62700 EST. PATIENT, LEVEL IV Diagnosis: ESSENTIAL HYPERTENSION[SNOMED: 66894245] Diagnosis: BPH W URINARY OBS/LUTS[ICD9: 600.01] Ale Carlos MD, [facility] CPT-4: 29989 12/20/2011 ([id number]) 60054 EST. P ATIENT, LEVEL III Diagnosis: Lump in the groin[ICD9: 789.30] Ale Carlos MD, [facility] CPT-4: 86538 12/09/2011 ([id number]) 13233 EST. P ATIENT, LEVEL IV Diagnosis: ESSENTIAL HYPERTENSION[SNOMED: 04508184] Diagnosis: Mild cognitive impairment[ICD9: 331.83] Ale Carlos MD, [facility] CPT-4: 93789 08/25/2011 ([id number]) 64602 EST. P ATIENT, LEVEL IV Diagnosis: ESSENTIAL HYPERTENSION[SNOMED: 93357359] Diagnosis: GENERALIZED ANXIETY DISEASE[ICD9: 300.02] Diagnosis: MILD COGNITIVE IMPAIREMT[ICD9: 331.83] Diagnosis: IRRITABLE COLON[ICD9: 564.1] Ale Carlos MD, [facility] CPT-4: 08426 06/23/2011 ([id number]) 44439 EST. 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 PATIENT, LEVEL I Diagnosis: ESSENTIAL HYPERTENSION[SNOMED: 10353050] Ale Carlos MD, [facility] CPT-4: 95122 03/23/2011 87439 EST. PATIENT, LEVEL III Diagnosis: ESSENTIAL HYPERTENSION[SNOMED: 42680602] Diagnosis: Laceration of finger, index[ICD9: 883.0] Ale Carlos MD, [facility] CPT-4: 58634 03/08/2011 50331 EST. PATIENT, LEVEL III Diagnosis: ESSENTIAL HYPERTENSION[SNOMED: 03715425] Diagnosis: Irritable bowel syndrome (IBS)[ICD9: 564.1] Ale Carlos MD, [facility] CPT-4: 54215 03/01/2011 10776 EST. PATIENT, LEVEL IV Diagnosis: Mild cognitive impairment with memory loss[ICD9: 331.83] Diagnosis: GENERALIZED ANXIETY DISEASE[ICD9: 300.02] Diagnosis: Bruising[ICD9: 924.9] Diagnosis: HYDROCELE[ICD9: 603.9] Ale Carlos MD, [facility] CPT-4: 37623 02/01/2011 78216 EST. PATIENT, LEVEL III Diagnosis: Testicular pain[ICD9: 608.9] Diagnosis: GENERALIZED ANXIETY DISEASE[ICD9: 300.02] Nelly Carlos MD, [facility] CPT-4: 88228 01/27/2011 20355 EST. PATIENT, LEVEL III Diagnosis: Arm bruise[ICD9: 923.9] Nelly Carlos MD, [facility] CPT-4: 93881 01/26/2011 OFFICE VISIT, NEW - LEVEL 4 Diagnosis: DIARRHEA[ICD9: 787.91] Diagnosis: Elevated liver function tests[ICD9: 790.6] Diagnosis: Abdominal discomfort[ICD9: 789.00] Ale Carlos MD, [facility] CPT- 4: 40019 01/06/2011 Plan of Care Planned Activity Notes [...] nail debridement. 05/18/2018 Appointment: Ale Carlos WPtel[facility] (15 min) Moderate 05/18/2018 Patient Education: Patient [...] discomfort. 04/13/2018 Appointment: Ale [phone] [facility] (30 min) Complex 04/13/2018 Patient Education: Patient [...] GI upset. 02/08/2018 Appointment: Ale Carlos WPtel: [facility] (30 min) Complex 02/08/2018 Patient Education: Patient Medication Summary Completed 02/08/2018 Patient Education: Hypertension Completed 02/08/2018 Appointment: Nelly Keen WPtel: [facility]5 [phone] (15 min) Moderate 02/02/2018 Visit Plan: Lqjzkovgsgpi-ymxgxxh-li start trulance 3mg daily Dry mouth-biotene mouth spray 01/19/2018 Appointment: Ale Carlos WPtel: [facility] ([facility] min) Complex 01/19/2018 Patient Education: Patient [...] or concerns 01/12/2018 Appointment: Nelly Keen WPtel[phone] (15 min) Moderate 01/12/2018 Patient Education: Patient [...] be helping his symptoms. 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 I have recommended that he is to eat 1/2 a sandwich with his ensure at bedtime. 01/05/2018 Appointment: Ale Carlos [facility]el[phone] [facility] (15 min) Moderate 01/05/2018 Patient Education: Patient Medication Summary Completed 01/05/2018 Appointment: [phone] [facility] (30 min) Complex 01/04/2018 Visit Plan: Irritable [...] 11/03/2017 Care Plan: Referral Order SNOMED-CT : [id number] Pending 10/28/2017 Visit Plan: Constipation - uncontro [...] improving. 2017 Appointment: Ruchi Agee [facility]el[phone] (15 min) Moderate 2017 Patient Education: Patient Medication Summary Completed 2017 Visit Plan: Hypertension - well con trosincereed - continue with current medications, continue with [...] portion size. 10/13/2017 Appointment: Ale Carlos WPtel: [address] [place], [place] [address] (30 min) Complex 10/13/2017 Patient Education: Patient [...] the medication. 09/26/2017 Appointment: Ale Carlos WPtel: [address] [place], [place] [phone] (15 min) Moderate 09/26/2017 Patient Education: Patient Medication Summary Completed 09/26/2017 Appointment: Ale Carlos WPtel: [address] [place] [phone] (30 min) Complex 09/14/2017 Visit Plan: Constipation [...] the ER. 09/12/2017 Appointment: Ale Carlos WPtel: [address] [place], [place] [phone] (30 min) Complex 09/12/2017 Patient Education: Patient Medication Summary Completed 09/12/2017 Visit Plan: Ongoing fatigue - persi stent - will check labs and treat as indicated - pt is to notify clinic if symptoms do not improve, if they worsen, or with any changes, questions, or concerns. 09/09/2017 Appointment: Ruchi Agee WPtel: [address] [place], [place] [phone] (30 min) Complex 09/09/2017 Patient Education: Patient [...] home. 08/17/2017 Appointment: [phone] [facility] (15 min) Moderate 08/17/2017 Patient Education: Patient [...] foods. 07/20/2017 Appointment: [phone] [facility] (30 min) Complex 07/20/2017 Appointment: Ale Carlos WPtel: [facility]5 [facility] (30 min) Complex 07/20/2017 Patient Education: Patient Medication Summary Completed 07/20/2017 Appointment: [facility]el[facility] [phone] [facility] [place] (30 min) Complex 07/19/2017 Appointment: Ale Carlos WPtel: [facility] (15 min) Moderate 07/18/2017 Visit Plan: Constipation [...] this regimen. 07/01/2017 Appointment: [facility]uchi Agee [facility]el[facility] [facility] [place] (30 min) Complex 07/01/2017 Appointment: Ruchi Agee WPtel: [facility]8 [facility] (30 min) Complex 07/01/2017 Patient Education: [...] current management. 06/21/2017 Appointment: Ale Carlos WPtel: [phone] [facility] (30 min) Complex 06/21/2017 Patient [...] home. 03/21/2017 Appointment: [phone] [facility] (30 min) Complex 03/21/2017 Patient Education: Patient [...] allergy spray. 03/08/2017 Appointment: Nelly Keen WPtel: [phone] [phone] (30 min) Complex 03/08/2017 Patient Education: [...] shot 01/25/2017 Appointment: Ale Carlos WPtel: [address] [facility] (30 min) Complex 01/25/2017 Patient Education: Patient [...] improving. 12/20/2016 Appointment: Ale Carlos WPtel: [address] [facility]66[facility] (30 min) Complex 12/20/2016 Patient Education: Patient Medication Summary Completed 12/20/2016 Patient Education: Hypertension Completed 12/20/2016 Appointment: Ruchi Agee WPtel: [phone] [facility] [place] [address] - Annual Wellness Visit 12/03/2016 Visit Plan: [...] worsen. 11/25/2016 Appointment: Ale Carlos WPtel: [address] [facility] (15 min) Moderate 11/25/2016 Patient Education: [...] thrush. 11/18/2016 Appointment: Ale Carlos WPtel: [phone] [facility] (15 min) Moderate 11/18/2016 Patient [...] and namenda. labs [place] [facility] 08/23/2016 Appointment: Ale Carlos WPtel: [phone] [facility] (30 min) Complex 08/23/2016 Patient [...] home. 04/26/2016 Appointment: Ale Carlos WPtel: [phone] [facility] (30 min) Complex 04/26/2016 Patient Education: Patient Medication Summary Completed 04/26/2016 Visit Plan: Joint effusion - recomm ended drainage and referral to orthopedic surgeon for surgical debridement of bursa 02/17/2016 Appointment: Ale Carlos WPtel: [phone] [facility] (30 min) Complex 02/17/2016 Patient Education: Patient Medication Summary Completed 02/17/2016 Visit Plan: Bursitis-right elbow-dr healy today in the office- increase anti inflammatories for the next 5 days as directed-call if symptoms do not resolve, swelling returns or new symptoms develop-patient verbalized understanding of plan. 02/09/2016 Appointment: Nelly Keen WPtel: [phone] [phone] (30 min) Complex 02/09/2016 Patient Education: [...] plan. 02/03/2016 Appointment: Nelly Keen WPtel: [phone] [phone] (30 min) Complex 02/03/2016 Patient Education: Patient Medication Summary Completed 02/03/2016 Patient Education: Patient Medication Summary Completed 01/30/2016 Care Plan: Metabolic Due on Pending 01/30/2016 Visit Plan: Abdominal pain - nausea - Pt to have IV fluids at [facility] 01/26/2016 Appointment: Ale Carlos WPtel: [phone] [facility] (30 min) Complex 01/26/2016 Patient Education: [...] spray. 01/21/2016 Appointment: Nelly Keen WPtel: [phone] [phone] (30 min) Complex 01/21/2016 Patient [...] treatment. 09/02/2015 Appointment: [phone] (15 min) Moderate 09/02/2015 Patient [...] today 05/06/2015 Appointment: [facility] (15 min) Moderate 05/06/2015 Patient Education: Patient Medication Summary Completed 05/06/2015 Patient Education: Hypertension Completed 05/06/2015 Care Plan: COMPLETE CBC AUTOMATED LOINC : 38834-2 Ordered 05/06/2015 Visit Plan: Hypertension - well [...] medications. 03/05/2015 Appointment: Ale Carlos WPtel: [phone] [facility] (30 min) Complex 03/05/2015 Patient [...] improved. 12/04/2014 Appointment: Ale Carlos WPtel: [phone] [facility] Follow up 12/04/2014 Patient Education: Patient [...] Plan: CT ABD & PELV 1/> MOHIT LOINC : 92541-9 Ordered 09/24/2014 Visit Plan: Hypertension - well [...] THAT HE SHOULD NOT BE DRIVING TO [place] 07/26/2014 Appointment: Sick 07/26/2014 Appointment: Sick 07/26/2014 [...] medication list. 07/10/2014 Appointment: Ale Carlos WPtel: [facility]5 [facility] Follow up 07/10/2014 Patient Education: Patient Medication Summary Completed 07/10/2014 Patient Education: Hypertension Completed 07/10/2014 Appointment: Ale Carlos WPtel: [address] [place], [place] [phone] Follow up 06/20/2014 Appointment: Ale Carlos WPtel: [address] [place], [place] [phone] Follow up 06/10/2014 Visit Plan: Anxiety and [...] in blood pressure readings at home. Urinary jcelzzfgr-HIP-peoekz flomax to bedtime Dizziness-stop hydrocodone and ativan [...] 3 WEEKS 05/29/2014 Appointment: Ale Carlos WPtel: [address] [place], [place] [phone] Sick 05/29/2014 Patient Education: Patient Medication Summary Completed 05/29/2014 Patient Education: Hypertension Completed 05/29/2014 Appointment: [phone] [facility] 05/23/2014 Patient Education: Patient Medication Summary Completed 05/23/2014 Visit Plan: Pneumonia - Pt has been diagnosed with pneumonia by physical exam. A chest xray has been ordered as have antibiotics. The pt is aware of the diagnosis and the need for acute treatment of this illness. A lcbezjcq-bnagz-gdrlzjw flonase nasal spray Hyponatremia-increase gatorade as directed [...] for acute treatment of this illness. A cytdxmxi-mecnt-pgagowd flonase nasal spray Hyponatremia-increase gatorade as directed 05/20/2014 Patient Education: Patient Medication Summary Completed 05/20/2014 Appointment: Ale [facility]el: [phone] [place] Injection 03/26/2014 Patient Education: [...] Dr. Merlos. 03/25/2014 Appointment: Ale Carlos WPtel: [address] [facility] Follow up 03/25/2014 Patient Education: Patient Medication Summary Completed 03/25/2014 Patient Education: Hypertension Completed 03/25/2014 Visit Plan: Dpbff-emthidvom-rihvrwo laryngeal reflux-RX for protonix (patient is on [...] at home. 12/24/2013 Appointment: Ale Carlos WPtel: [facility]5 [facility] Follow up 12/24/2013 Patient Education: Patient [...] portion size. 11/20/2013 Appointment: Ale Carlos WPtel: [address] [place], [place] [phone] Follow up 11/20/2013 Patient Education: Patient Medication Summary Completed 11/20/2013 Appointment: Ale Carlos WPtel: [address] [place], [place] [phone] [place] Follow up 11/06/2013 Visit Plan: Weight loss-increase po rtions-add snacks in the morning and afternoon-follow up in 3 weeks for weight check Low sodium-check labs-restart gatorade Memclhn-okoalh-gpays labs and UA 10/30/2013 Patient Education: Patient Medication Summary Completed 10/30/2013 Appointment: Ale Carlos WPtel: [address] [place], [place] [phone] Follow up 10/16/2013 Visit Plan: Sinusitis - [...] Dr. Merlos. 06/18/2013 Appointment: Ale Carlos WPtel: [phone] [facility] Follow up 06/18/2013 Patient Education: Patient [...] concerns. 04/04/2013 Appointment: Ale Carlos WPtel: 101 [facility] Follow up 04/04/2013 Patient Education: Patient [...] report. 02/19/2013 Appointment: Ale Carlos WPtel: [phone] [facility] Follow up 02/19/2013 Patient Education: Patient [...] loss. 10/16/2012 [facility]ment[phone] [facility] 10/16/2012 Patient Education: [...] return. 06/19/2012 Appointment: Ale Carlos WPtel: [phone] [facility] [place] Follow up 06/19/2012 Patient Education: [...] bentyl. 03/20/2012 Appointment: Ale Carlos WPtel: [phone] [facility] Follow up 03/20/2012 Patient Education: Patient Medication Summary Completed 03/20/2012 Patient Education: High Blood Pressure: Essential Hypertension Completed 03/20/2012 Appointment: Ale Carlos WPtel: [phone] [facility] Follow up 02/22/2012 Visit Plan: [...] as needed. 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 I anticipate it will be at least 4-6 months before he can be off of the plavix and aspirin for additonal procedures unless it is of extreme urgency. 12/20/2011 Appointment: Ale Carlos WPtel: [address] [place], [place] [phone] Follow up 12/20/2011 Patient Education: Patient Medication Summary Completed 12/20/2011 Patient Education: High Blood Pressure: Essential Hypertension Completed 12/20/2011 Appointment: Ale Carlos WPtel: [address] [place], [place] [phone] Other 12/13/2011 Visit Plan: Pain in groin post hear t cath with increased discomfort and increased size - will order an ultrasound for today. 12/09/2011 Appointment: Ale Carlos WPtel: [address] [place], [place] [phone] Other 12/09/2011 Patient Education: Patient Medication Summary [...] either medication. 08/25/2011 Appointment: Ale Carlos WPtel: [address] [place] [address] Other 08/25/2011 Patient Education: Patient Medication Summary [...] low doses. 06/23/2011 Appointment: Ale Carlos WPtel: [address] [place], [place] [phone] [place] Other 06/23/2011 Patient Education: Patient Medication Summary Completed 06/23/2011 Patient Education: High Blood Pressure: Essential Hypertension Completed 06/23/2011 Appointment: Ale Carlos WPtel: [address] [place], [place] [id number] Other 04/26/2011 Visit Plan: Hypertension - well [...] seeds, etc. 04/19/2011 Appointment: Ale Carlos WPtel: [address] [place] [address] Other 04/19/2011 Patient Education: Patient Medication Summary Completed 04/19/2011 Patient Education: High Blood Pressure: Essential Hypertension Completed 04/19/2011 Patient Education: Diverticulosis Diet Completed 04/19/2011 Appointment: Nelly Keen WPtel: [address] [place], [place] [id number] Other 03/23/2011 Patient Education: Patient Medication Summary Completed 03/23/2011 Patient Education: High Blood Pressure: Essential Hypertension Completed 03/23/2011 Visit Plan: Record blood pressure a nd heart rate at home and drop the readings by the office in two weeks. No change in medications today. Laceration - removed suture today - pt to call if any complications arise. 03/08/2011 Appointment: Ale Carlos WPtel: [address] [place] [address] Other 03/08/2011 Patient Education: Patient Medication Summary [...] day. 03/01/2011 App[facility]ment: [phone] [place] Other 03/01/2011 Patient Education: Patient Medication Summary Completed 03/01/2011 Patient Education: High Blood Pressure: Essential Hypertension Completed 03/01/2011 [phone] [place] Injection 02/25/2011 Patient Education: Patient Medication Summary Completed 02/25/2011 Appointment: [phone] [place] Injection 02/16/2011 Patient Education: Patient Medication Summary Completed 02/16/2011 Appointment: [phone] [place] Injection 02/09/2011 Patient Education: Patient Medication Summary Completed 02/09/2011 Appointment: Ale Carlos WPtel: [facility] [place] Follow up 02/02/2011 Visit Plan: [...] with his son - Kenji Dash in [place]. Upon our conversation [id number], Kenji vocalized concerns for his Dad's memory. He stated that he has noticed his father not being as quick in his cognitive functioning, he has noticed some concerns with driving as well. He states that he will discuss these concerns with his parents and other siblings. 02/01/2011 Appointment: Ale Carlos WPtel: [facility] Other 02/01/2011 Patient Education: Patient Medication [...] as needed. 01/27/2011 Appointment: Ale Carlos WPtel: [facility] [place] [address] [place] New Patient 01/27/2011 Patient Education: Patient Medication Summary Completed 01/27/2011 Visit Plan: Bruising/hematoma left arm-discussed natural and expected course of this diagnosis and to alert me if symptoms do not follow expected course or if any worse, Continue with ice/heat as needed for disc omfort. Call for any concerns. 01/26/2011 Appointment: Nelly Keen WPtel: [facility] [place] [address] Other 01/26/2011 Patient Education: Patient Medication Summary [...] Finish antibiotics for full course. 01/15/2011 Appointment: Deni Ke[facility]ie [facility]el: [phone] [place] [address] Other 01/15/2011 Patient Education: Patient Medication Summary [...] diet. 01/06/2011 Appointment: [facility]el: [phone] [facility] Patient 01/06/2011 Patient Education: Patient Medication Summary Completed 01/06/2011 Referral: External, Ordering Provider Referral Relationship Instructions Comment . Pneumonia - Pt has been diagnosed with pneumonia by physical exam. A chest xray has been ordered as have antibiotics. The pt is aware of the diagnosis and the need for acute treatment of this illness. Svorwnsto-fcemm-vietcdt flonase nasal spray Hyponatremia-increase gatorade as directed [...] any questions or concerns . 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 I anticipate it will be at least 4-6 months before he can be off of the plavix and aspirin for additonal procedures unless it is of extreme urgency. CHECK LABS-CBC, CMP, UA WITH C&S IF INDICATED . Weight loss-increase portions-add snac ks in the morning and afternoon-follow up in 3 weeks for weight check Low sodium-check labs-restart gatorade Wymdavb-kniqqh-xstlc labs and UA . Joint effusion - [...] at home. Constipation - Discussed with Dr. aDsh - He needs to continue with miralax [...] need for acute treatment of this illness. Gitvkllsw-jyvno-zdzuqnr flonase nasal spray Hyponatremia-increase gatorade as directed . Constipation - unc ontrolled - pt [...] if the symptoms are not improving. . Abdominal pain - n ausea - [...] cbc prevnar 13 injection today stop the multivitami n stop the calcium [...] be helping his symptoms. 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 I have recommended that he is [...] referral to Dr. Yates for nail debridement. Dr. Carlos talked to Dr. Merlos today [...] controlled-no change in treatment . Hypertension - unc ontrolled - the [...] bentyl up to two times a day. INCREASE GATORADE TO TWICE DAILY . Abdominal pain-patient reports worseni ng symptoms-schedule CT abdomen/pelvis to evaluate for acute abnormality Low sodium-increase gatorade to twice HTN-well controlled-no change in treatment . Lgdfi-lupvvtzvs-bh spect laryngeal reflux-RX for protonix (patient is [...] and have gait eval. get Aspercreme from [employer] for your upper neck/upper back. Abdominal upset/cramping [...] IN THE EVENING OF 01/15/11 Appointment in [address] [place] [address] Carlos. Recommend Lactobacillus 1 orally [...] with his son - Kenji Dash in [place]. Upon our conversation yfjz-wvo-hehqe, Kenji vocalized concerns for his Dad's memory. He stated that he has noticed his father not being as quick in his cognitive functioning, he has noticed some concerns with driving as well. He states that he will discuss these concerns with his parents and other siblings. stop losartan - [facility] k blood pressure and heart rate [...] spray -it is over the counter . Pudaggiiwdvs-oecexqw-bcwzosl trulance 3mg daily Dry mouth-biotene mouth spray [...] your diet back to regular foods. . Bronchitis - acute but improving - case of bronchitis - Pt has been given antibiotics, breathing treatments as appropriate, and pt has been instructed to call if symptoms are not improved, or if symptoms acutely worsen. . Chronic Depression and anxiety-improved over the past several weeks- the pt has symptoms of chronic anxiety and depression that have been fairly well controlled since the last office visit. The pt has expected periods of exacerbation with abatement of the symptoms with change in situational exposure. No change in current medications. INSTRUCTED PATIENT THAT HE SHOULD NOT BE DRIVING TO [place] Pt is to try 1/2 pil l [...] in blood pressure readings at home. Urinary dlarsbjls-ZKI-yqqplt flomax to bedtime Dizziness-stop hydrocodone and ativan [...]
--- OUTSIDE RECORDS SUMMARY | 2019-07-16 08:11 | XMS REPORT | CCD ---
Author Author Kenneth Carlos Organization Ale Carlos MD, [facility] Address [address] [place] [address] Phone Care Team Providers Care E Commerce Marketing Analyst Name Role Phone Ale Carlos PP Unavailable CCM Unavailable Summary Purpose Interface Exchange Insurance Providers Payer name Policy type / Coverage type Covered republican ID Effective Begin Date Effective End Date WPS Medicare Part B Medicare Part B [id number] Unknown Unknown 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 Unknown Has never used illegal drugs 011 Allergies, Adverse Reactions, Alerts Substance Reaction Codes Entered Date Inactivated Date Status * NO KNOWN FOOD NAYE RGIES Unknown 04/19/2011 No Inactive Date Active Toradol RxNorm: 89983 03/05/2011 No Inactive Date Active Lisinopril cough, [...] Fill Instructions lisinopril 20 mg tablet RxNorm: 509041 TAKE 1 TABLET DAILY 06/05/2018 12/01/2018 Active triamterene 37.5 mg- hydrochlorothiazide 25 mg tablet RxNorm: 807230 1 Tablet(s) PO daily 05/18/2018 12/13/2018 Active cetirizine 10 mg tablet RxNorm: 2021520 TABLET(S) 1 TABLET(S) PO DAILY TO TAKE I NSTEAD OF THE CLARITIN 03/13/2018 02/05/2019 Active amlodipine 10 mg tablet RxNorm: 906700 TAKE 1 TABLET BY MOUTH EVERY DAY 03/09/2018 10/04/2018 Ac tive fluticasone 50 mcg/a ctuation nasal spray,suspension RxNorm: 6869570 1 [place] NASAL BID 02/08/2018 No Stop Date Active fluticasone 50 mcg/a ctuation nasal spray,suspension RxNorm: 4779205 1 [place] NASAL BID 02/08/2018 02/07/2018 Inactive Trulance 3 mg tablet RxNorm: 1814761 1 Tablet(s) PO QAM 01/19/2018 07/17/2018 Active cefdinir 300 mg capsule RxNorm: 516077 1 Capsule(s) PO BID 12/28/2017 01/03/2018 Inactive cefdinir 300 mg capsule RxNorm: 545269 1 Capsule(s) PO BID 12/28/2017 12/27/2017 Inactive clopidogrel 75 mg ta blet RxNorm: 144729 TAKE 1 TABLET BY MOUT H EVERY DAY 12/26/2017 06/23/2018 Ac tive Namenda 10 mg tablet RxNorm: 326316 Tablet(s) TAKE 1 TABLET BY MOUTH TWICE D AILY. 12/15/2017 No Stop Date Active Robinul 1 mg tablet RxNorm: 764326 1/2 Tablet(s) PO AC & HS 12/12/2017 12/14/2017 Inactive Robinul 1 mg tablet RxNorm: 076144 1/2 Tablet(s) PO AC & HS 12/12/2017 12/11/2017 Inactive donepezil 10 mg tablet RxNorm: 685190 1 TABLET(S) PO DAILY TAKE 1 TABLET BY MO UTH ONCE DAILY 12/08/2017 12/11/2017 Inactive Patient requests 90 days supply lisinopril 20 mg tablet RxNorm: 164148 TAKE 1 TABLET DAILY 12/05/2017 01/11/2018 Inactive Cymbalta 30 mg capsu le,delayed release RxNorm: 471642 1 Capsule(s) PO daily 12/05/2017 12/04/2017 In active Cymbalta 30 mg capsu le,delayed release RxNorm: 808613 1 Capsule(s) PO daily 12/05/2017 12/05/2017 In active Trulance 3 mg tablet RxNorm: 2609240 1 Tablet(s) PO daily 11/14/2017 12/13/2017 Inactive Linzess 145 mcg capsule RxNorm: 9452553 1 Capsule(s) PO daily 10/28/2017 12/14/2017 Inactive Zantac 150 mg tablet RxNorm: 937983 1 Tablet(s) PO QAM 10/13/2017 01/04/2018 Inactive mirtazapine 15 mg ta blet RxNorm: 427424 TAKE ONE TABLET BY MO UTH EVERY DAY 09/29/2017 09/23/2018 Ac tive Mobic 15 mg tablet RxNorm: 342013 1/2 TABLET(S) DAILY 09/26/2017 12/19/2017 Inactive lisinopril 20 mg tablet RxNorm: 612738 1/2 Tablet(s) daily 09/13/2017 01/12/2018 Inactive amlodipine 10 mg tablet RxNorm: 333085 TAKE 1 TABLET BY MOUTH EVERY DAY 09/09/2017 03/07/2018 In active Reglan 5 mg tablet RxNorm: 792808 1/2 Tablet(s) PO TID may increase up to a full pill three times daily as needed for poor GI motility 07/20/2017 09/17/2017 Inactive Protonix 40 mg table t,delayed release RxNorm: 281058 1 Tablet(s) PO daily 07/04/2017 01/29/2018 In active clopidogrel 75 mg ta blet RxNorm: 191095 TAKE 1 TABLET BY MOUT H EVERY DAY 06/20/2017 12/16/2017 In active cetirizine 10 mg tablet RxNorm: 7784426 TABLET(S) 1 TABLET(S) PO DAILY TO TAKE I ROXANNATEAD OF THE CLARITIN 06/06/2017 03/12/2018 Inactive lisinopril 20 mg tablet RxNorm: 603430 TAKE 1 TABLET DAILY 05/30/2017 09/12/2017 Inactive Mobic 15 mg tablet RxNorm: 110010 1/2 TABLET(S) DAILY 03/21/2017 09/16/2017 Inactive donepezil 10 mg tablet RxNorm: 154071 1 Tablet(s) PO daily TAKE 1 TABLET BY MO UTH ONCE DAILY 02/28/2017 11/24/2017 Inactive Patient requests 90 days supply Requip 0.25 mg tablet RxNorm: 832151 1 TABLET(S) PO BID 01/24/2017 01/04/2018 Inactive Patient requests 90 days supply clopidogrel 75 mg ta blet RxNorm: 777870 TAKE 1 TABLET BY MOUT H EVERY DAY 12/23/2016 06/19/2017 In active lisinopril 20 mg tablet RxNorm: 084780 TAKE 1 TABLET DAILY 11/26/2016 05/24/2017 Inactive Kenalog 40 mg/mL hugo pension for injection RxNorm: 0527923 Milliliter(s) Inj 11/25/2016 11/25/2016 In active cefdinir 300 mg capsule RxNorm: 476091 1 Capsule(s) PO BID 11/23/2016 11/27/2016 Inactive cefdinir 300 mg capsule RxNorm: 168518 1 Capsule(s) PO BID 11/23/2016 11/22/2016 Inactive nystatin 100,000 uni t/mL oral suspension RxNorm: 598129 5 Milliliter(s) PO QI D 11/18/2016 11/27/2016 In active azithromycin 250 mg tablet RxNorm: 826792 1 Tablet(s) PO UD 2 p ills on day #1 then one pill daily x 4 more days 11/18/2016 11/22/2016 Inactive Mobic 15 mg tablet RxNorm: 209464 1/2 TABLET(S) DAILY 10/28/2016 03/20/2017 Inactive citalopram 10 mg tablet RxNorm: 194412 TAKE 1 TABLET BY MOUTH EVERY DAY 10/07/2016 03/05/2017 In active Patient requests 90 days supply mirtazapine 15 mg ta blet RxNorm: 255866 TAKE ONE TABLET BY MO UTH EVERY DAY 10/06/2016 09/28/2017 In active mirtazapine 15 mg ta blet RxNorm: 998633 TAKE ONE TABLET BY MO UTH EVERY DAY 10/05/2016 10/05/2016 In active Patient requests 90 days supply amlodipine 10 mg tablet RxNorm: 208225 TAKE 1 TABLET BY MOUTH EVERY DAY 09/14/2016 01/24/2017 In active clopidogrel 75 mg ta blet RxNorm: 317690 TAKE 1 TABLET BY MOUT H EVERY DAY 06/28/2016 12/22/2016 In active lisinopril 20 mg tablet RxNorm: 667356 TAKE 1 TABLET DAILY 05/31/2016 11/25/2016 Inactive donepezil 10 mg tablet RxNorm: 469115 TAKE 1 TABLET BY MOUTH ONCE DAILY 05/11/2016 11/06/2016 In active donepezil 10 mg tablet RxNorm: 098144 TAKE 1 TABLET BY MOUTH ONCE DAILY 04/26/2016 02/28/2017 In active Mobic 15 mg tablet RxNorm: 752667 1/2 Tablet(s) daily 04/19/2016 10/15/2016 Inactive citalopram 10 mg tablet RxNorm: 241832 TAKE 1 TABLET BY MOUTH EVERY DAY 04/06/2016 04/25/2016 In active cetirizine 10 mg tablet RxNorm: 9291485 Tablet(s) 1 TABLET(S) PO DAILY TO TAKE I NSTEAD OF THE CLARITIN 03/30/2016 02/22/2017 Inactive amlodipine 10 mg tablet RxNorm: 783660 TAKE 1 TABLET BY MOUTH EVERY DAY 03/08/2016 01/24/2017 In active amlodipine 10 mg tablet RxNorm: 510614 1 Tablet(s) PO daily TAKE 1 TABLET BY MO UT ONCE DAILY 03/03/2016 03/07/2016 Inactive Requip 0.25 mg tablet RxNorm: 746837 1 Tablet(s) PO BID 03/03/2016 09/13/2016 Inactive Mobic 15 mg tablet RxNorm: 499984 1 Tablet(s) daily not refilled on a 02/23/2016 04/18/2016 In active cetirizine 10 mg tablet RxNorm: 6746194 1 TABLET(S) PO DAILY TO TAKE INSTEAD OF THE CLARITIN 02/19/2016 03/19/2016 Inactive lisinopril 20 mg tablet RxNorm: 779902 TAKE 1 TABLET DAILY 02/18/2016 05/17/2016 Inactive Namenda 10 mg tablet RxNorm: 638854 Tablet(s) TAKE 1 TABLET BY MOUTH TWICE D AILY. 02/17/2016 12/14/2017 Inactive lisinopril 20 mg tablet RxNorm: 827575 TAKE 1 TABLET DAILY 01/23/2016 01/24/2017 Inactive cetirizine 10 mg tablet RxNorm: 5392301 1 Tablet(s) PO daily to take instead of the claritin 01/21/2016 02/18/2016 Inactive amlodipine 10 mg tablet RxNorm: 713230 1 Tablet(s) PO daily TAKE 1 TABLET BY MO UTH ONCE DAILY 12/02/2015 03/02/2016 Inactive clopidogrel 75 mg ta blet RxNorm: 243176 TAKE 1 TABLET BY MOUT H EVERY DAY 11/25/2015 05/22/2016 In active Mobic 15 mg tablet RxNorm: 030576 TAKE(1/2) TABLET DAILY. 11/17/2015 02/22/2016 Inactive lisinopril 20 mg tablet RxNorm: 478874 TAKE 1 TABLET DAILY 11/17/2015 01/15/2016 Inactive Mobic 15 mg tablet RxNorm: 376215 1/2 Tablet(s) PO daily TAKE (1/2) TABLET DAILY. 11/12/2015 11/16/2015 Inactive citalopram 10 mg tablet RxNorm: 070405 TAKE 1 TABLET BY MOUTH EVERY DAY 10/27/2015 04/05/2016 In active Requip 0.25 mg tablet RxNorm: 213591 1 Tablet(s) PO BID 10/15/2015 02/11/2016 Inactive Requip 0.25 mg tablet RxNorm: 991683 1 Tablet(s) PO BID 10/15/2015 10/14/2015 Inactive mirtazapine 15 mg ta blet RxNorm: 087711 1 Tablet(s) PO daily 09/08/2015 10/01/2016 Inactive donepezil 10 mg tablet RxNorm: 976751 TAKE 1 TABLET DAILY 09/01/2015 04/25/2016 Inactive amlodipine 10 mg tablet RxNorm: 117614 1 Tablet(s) PO daily TAKE 1 TABLET BY MO UTH ONCE DAILY 08/18/2015 12/01/2015 Inactive clopidogrel 75 mg ta blet RxNorm: 223331 1 Tablet(s) PO daily TAKE 1 TABLET DAILY 05/20/2015 11/24/2015 In active Mobic 15 mg tablet RxNorm: 889682 Tablet(s) TAKE (1/2) TABLET DAILY. 04/23/2015 10/19/2015 In active lisinopril 20 mg tablet RxNorm: 526023 TAKE 1 TABLET DAILY 04/22/2015 11/16/2015 Inactive Mobic 15 mg tablet RxNorm: 001980 TAKE (1/2) TABLET DAILY. 04/22/2015 04/22/2015 Inactive sulfamethoxazole 400 mg-trimethoprim 80 mg tablet RxNorm: 626988 1/2 Tablet(s) PO nancy y 03/11/2015 04/09/2015 Inactive Vesicare 5 mg tablet RxNorm: 068234 1 Tablet(s) PO 03/11/2015 05/09/2015 Inactive Protonix 40 mg table t,delayed release RxNorm: 873893 1 Tablet(s) PO BID 03/05/2015 09/30/2015 In active ok to change from [address] Archana rivera clopidogrel 75 mg ta blet RxNorm: 472137 1 Tablet(s) PO daily TAKE 1 TABLET DAILY 02/20/2015 05/19/2015 In active Namenda 10 mg tablet RxNorm: 983504 Tablet(s) TAKE 1 TABLET BY MOUTH TWICE D AILY. 01/22/2015 02/16/2016 Inactive amlodipine 10 mg tablet RxNorm: 745445 TAKE 1 TABLET BY MOUTH ONCE DAILY 01/14/2015 08/17/2015 In active donepezil 10 mg tablet RxNorm: 717808 TAKE 1 TABLET DAILY 01/06/2015 08/31/2015 Inactive Levsin 0.125 mg tablet RxNorm: 5638708 1 Tablet(s) PO QID as needed FOR ABD REJI N 11/05/2014 12/03/2014 In active Mobic 15 mg tablet RxNorm: 462186 1/2 Tablet(s) daily TAKE (1/2) TABLET DA MOIZ. 10/01/2014 04/21/2015 Inactive ciprofloxacin 500 mg tablet RxNorm: 832360 1 Tablet(s) PO BID 09/27/2014 10/01/2014 Inactive Flagyl 500 mg tablet RxNorm: 106805 1 Tablet(s) PO TID 09/27/2014 10/03/2014 Inactive take probiotic BID donepezil 10 mg tablet RxNorm: 772886 1/2 Tablet(s) PO BID 09/24/2014 01/05/2015 Inactive lisinopril 20 mg tablet RxNorm: 167249 TAKE 1 TABLET DAILY 09/05/2014 04/21/2015 Inactive amlodipine 10 mg tablet RxNorm: 938705 1 Tablet(s) PO daily 09/02/2014 12/30/2014 Inactive mirtazapine 15 mg ta blet RxNorm: 886775 1 Tablet(s) PO daily 08/28/2014 09/07/2015 Inactive donepezil 10 mg tablet RxNorm: 508102 1 Tablet(s) PO daily 08/28/2014 09/23/2014 Inactive citalopram 10 mg tablet RxNorm: 531994 1 Tablet(s) PO daily 08/28/2014 03/25/2015 Inactive citalopram 10 mg tablet RxNorm: 425862 1 Tablet(s) PO daily 08/07/2014 08/27/2014 Inactive citalopram 10 mg tablet RxNorm: 385140 1 Tablet(s) PO daily 08/07/2014 08/06/2014 Inactive Flagyl 500 mg tablet RxNorm: 490829 1 Tablet(s) PO TID 08/02/2014 08/01/2014 Inactive take probiotic BID Flagyl 500 mg tablet RxNorm: 877281 1 Tablet(s) PO TID 08/02/2014 08/08/2014 Inactive take probiotic BID tamsulosin ER 0.4 mg capsule,extended release 24 hr RxNorm: 458753 1 Capsule(s) PO QHS 06/06/2014 03/10/2015 Inactive TAKE AT BEDTIME escitalopram 5 mg ta blet RxNorm: 405285 1 Tablet(s) PO QPM 06/06/2014 08/06/2014 Inactive doxycycline hyclate 100 mg tablet RxNorm: 675376 1 Tablet(s) PO BID 05/31/2014 05/30/2014 Inactive doxycycline hyclate 100 mg tablet RxNorm: 348590 1 Tablet(s) PO BID 05/31/2014 06/06/2014 Inactive please deliver if not picked by 3pm Aricept 5 mg tablet RxNorm: 413152 1 Tablet(s) PO BID 05/29/2014 08/27/2014 Inactive losartan 50 mg tablet RxNorm: 852472 1/2 Tablet(s) PO daily 05/29/2014 12/28/2015 Inactive clopidogrel 75 mg ta blet RxNorm: 648394 1 Tablet(s) PO daily 05/27/2014 05/26/2014 Inactive Mobic 15 mg tablet RxNorm: 470205 TAKE (1/2) TABLET DAILY. 05/27/2014 09/30/2014 Inactive clopidogrel 75 mg ta blet RxNorm: 282035 TAKE 1 TABLET DAILY 05/27/2014 02/19/2015 Inactive Mobic 15 mg tablet RxNorm: 582926 1/2 Tablet(s) PO daily TAKE (1/2) TABLET DAILY. 05/27/2014 05/26/2014 Inactive prednisone 20 mg tablet RxNorm: 728720 1 Tablet(s) PO BID 05/21/2014 05/25/2014 Inactive albuterol sulfate 2. 5 mg/0.5 mL solution for nebulization RxNorm: 385211 1 inhale INH Q4H as needed 05/21/2014 09/01/2015 Inactive prednisone 20 mg tablet RxNorm: 645832 1 Tablet(s) PO BID 05/21/2014 05/20/2014 Inactive cefdinir 300 mg capsule RxNorm: 002520 1 Capsule(s) PO BID 05/20/2014 05/26/2014 Inactive Zithromax Z-Dequan 250 mg tablet RxNorm: 068337 1 Tablet(s) PO UD 05/20/2014 05/24/2014 Inactive zpack lorazepam 0.5 mg tablet RxNorm: 264956 1/2 to 1 Tablet(s) PO Q8 PRN as needed 04/30/2014 06/05/2014 In active Namenda 10 mg tablet RxNorm: 999980 TAKE 1 TABLET BY MOUTH TWICE DAILY. 04/15/2014 01/21/2015 In active Namenda 10 mg tablet RxNorm: 192842 1 Tablet(s) PO BID 04/15/2014 04/14/2014 Inactive losartan 50 mg tablet RxNorm: 368266 1 Tablet(s) PO daily 03/25/2014 05/28/2014 Inactive Protonix 40 mg table t,delayed release RxNorm: 289201 1 Tablet(s) PO QPM 03/21/2014 06/18/2014 In active ok to change from [address] Archana rivera fluticasone 50 mcg/a ctuation nasal spray,suspension RxNorm: 053053 1 [place] NASAL BID 03/04/2014 09/29/2014 Inactive Protonix 20 mg table t,delayed release RxNorm: 512539 1 Tablet(s) PO QPM 02/08/2014 03/20/2014 In active fluticasone 50 mcg/a ctuation nasal spray,suspension RxNorm: 506529 1 [place] NASAL BID 01/30/2014 03/03/2014 Inactive fluticasone 50 mcg/a ctuation nasal spray,suspension RxNorm: 463000 1 [place] NASAL BID 12/24/2013 01/29/2014 Inactive fluticasone 50 mcg/a ctuation nasal spray,suspension RxNorm: 066304 1 [place] NASAL BID 11/20/2013 12/23/2013 Inactive doxycycline hyclate 100 mg capsule RxNorm: 9632947 1 Capsule(s) PO BID 10/08/2013 10/17/2013 In active doxycycline hyclate 100 mg capsule RxNorm: 6596661 capsule oral 10/08/2013 10/29/2013 Inactive fluticasone 50 mcg/a ctuation nasal spray,suspension RxNorm: 373981 spray,suspension nasl 10/08/2013 11/19/2013 Inactive fluticasone 50 mcg/a ctuation nasal spray,suspension RxNorm: 260567 1 [place] NASAL BID Nasal spray- use twice daily, one spray per nostril twice daily, after 30 minutes, rinse out nose with saline spray. 10/08/2013 10/29/2013 Inactive mirtazapine 7.5 mg t ablet RxNorm: 855375 1/2 Tablet(s) PO daily 08/30/2013 08/27/2014 Inactive lorazepam 0.5 mg tablet RxNorm: 413007 1/2 Tablet(s) PO Q8 PRN 08/21/2013 04/29/2014 Inactive Aricept 5 mg tablet RxNorm: 239748 Tablet(s) PO TAKE 1 TABLET DAILY 08/21/2013 05/28/2014 In active Plavix 75 mg tablet RxNorm: 353688 Tablet(s) PO TAKE 1 TABLET DAILY 05/24/2013 12/04/2014 In active clopidogrel 75 mg ta blet RxNorm: 234507 tablet oral 05/24/2013 05/26/2014 Inactive Plavix 75 mg tablet RxNorm: 790564 1 Tablet(s) PO daily 05/23/2013 05/23/2013 Inactive meloxicam 15 mg tablet RxNorm: 196778 tablet oral 04/26/2013 03/25/2014 Inactive Mobic 15 mg tablet RxNorm: 405765 Tablet(s) PO TAKE (1/2) TABLET DAILY. 04/26/2013 05/26/2014 In active Mobic 15 mg tablet RxNorm: 400299 1/2 Tablet(s) PO daily 04/25/2013 04/25/2013 Inactive lisinopril 20 mg tablet RxNorm: 631668 1 Tablet(s) PO 04/04/2013 03/24/2014 Inactive finasteride 5 mg tablet RxNorm: 045163 tablet oral 03/22/2013 09/01/2015 Inactive lisinopril 10 mg tablet RxNorm: 303655 1 Tablet(s) PO daily 02/14/2013 04/03/2013 Inactive donepezil 5 mg tablet RxNorm: 190493 tablet oral 02/07/2013 12/24/2013 Inactive Influenza Virus Vacc ine 0.5 mL RxNorm: IM 02/06/2013 02/06/2013 Inactive Aricept 5 mg tablet RxNorm: 243299 1 Tablet(s) PO daily 02/06/2013 08/04/2013 Inactive tamsulosin ER 0.4 mg capsule,extended release 24 hr RxNorm: 072043 capsule,extended release 24hr oral 12/21/2012 06/05/2014 Inactive Plavix 75 mg tablet RxNorm: 294404 1 Tablet(s) PO daily 12/05/2012 05/03/2013 Inactive lorazepam 0.5 mg tablet RxNorm: 533770 1/2 Tablet(s) PO Q8 PRN 11/14/2012 08/20/2013 Inactive lisinopril 10 mg tablet RxNorm: 475350 1 Tablet(s) PO daily 08/08/2012 02/03/2013 Inactive Aricept 5 mg tablet RxNorm: 708786 1 Tablet(s) PO daily 08/08/2012 02/03/2013 Inactive Plavix 75 mg tablet RxNorm: 578157 1 Tablet(s) PO daily 07/04/2012 11/30/2012 Inactive Mobic 15 mg tablet RxNorm: 697297 1/2 Tablet(s) PO daily 03/20/2012 04/13/2013 Inactive Namenda 10 mg tablet RxNorm: 297381 1 Tablet(s) PO BID 02/22/2012 04/11/2014 Inactive lorazepam 0.5 mg tablet RxNorm: 457844 1/2 Tablet(s) PO Q8 PRN 02/02/2012 11/13/2012 Inactive lisinopril 10 mg tablet RxNorm: 000569 1 Tablet(s) PO daily 01/24/2012 07/21/2012 Inactive lisinopril 10 mg tablet RxNorm: 297224 1/2 Tablet(s) PO daily 12/20/2011 01/23/2012 Inactive Aricept 5 mg tablet RxNorm: 085809 1 Tablet(s) PO daily 07/14/2011 08/06/2012 Inactive Mobic 15 mg tablet RxNorm: 216964 1 Tablet(s) PO daily 07/14/2011 03/19/2012 Inactive Bentyl 10 mg Cap RxNorm: 826504 1 Capsule(s) PO daily one pill daily and every 6 hours if needed for bowel spasms. 06/23/2011 03/20/2012 Inactive amlodipine 5 mg Tab RxNorm: 956365 2 Tablet(s) PO daily 03/08/2011 12/08/2011 Inactive ZOSTAVAX 19,400 unit Sub-Q Soln RxNorm: 2681193 SQ 02/2502/25/2011 Inactive Pneumovax 23 25 mcg/ 0.5 mL Injection RxNorm: 656376 Milliliter(s) Inj 02/16/2011 02/16/2011 In active Influenza Virus Vacc ine 0.5 mL RxNorm: IM 02/09/2011 02/09/2011 Inactive Namenda 10 mg tablet RxNorm: 933853 1 Tablet(s) PO BID 02/01/2011 02/21/2012 Inactive dicyclomine 10 mg ca psule RxNorm: 375529 capsule oral 01/20/2011 10/29/2013 Inactive Namenda 5 mg tablet RxNorm: 219340 tablet oral 01/20/2011 12/24/2013 Inactive dicyclomine 20 mg ta blet RxNorm: 594290 tablet oral 01/15/2011 10/29/2013 Inactive Flagyl 500 mg Tab RxNorm: 954956 1 Tablet(s) PO TID 01/07/2011 01/06/2011 Inactive Cipro 500 mg Tab RxNorm: 545932 1 Tablet(s) PO BID 01/07/2011 06/23/2011 Inactive Cipro 500 mg Tab RxNorm: 139095 1 Tablet(s) PO BID 01/07/2011 01/06/2011 Inactive Flagyl 500 mg Tab RxNorm: 646585 1 Tablet(s) PO TID 01/07/2011 06/23/2011 Inactive metronidazole 500 mg tablet RxNorm: 070691 tablet oral 01/07/2011 12/24/2013 Inactive sulfamethoxazole 400 mg-trimethoprim 80 mg tablet RxNorm: 454466 tablet oral 12/24/2010 03/10/2015 In active mirtazapine 15 mg ta blet RxNorm: 922052 tablet oral 11/14/2010 12/24/2013 Inactive lisinopril 10 mg tablet RxNorm: 077869 tablet oral 11/14/2010 12/24/2013 Inactive doxycycline hyclate 100 mg tablet RxNorm: 049719 tablet oral 11/04/2010 12/24/2013 Inactive diphenoxylate-atropi ne 2.5 mg-0.025 mg tablet RxNorm: 8957275 tablet oral 11/03/2010 10/29/2013 In active ciprofloxacin 500 mg tablet RxNorm: 195329 tablet oral 11/01/2010 10/29/2013 Inactive Miralax 17 gram/dose oral powder RxNorm: 430536 17 Gram(s) PO daily No Start Date Active ranitidine 150 mg ta blet RxNorm: 440902 1 Tablet(s) PO daily No Start Date Active alprazolam 0.25 mg t ablet RxNorm: 255893 1 Tablet(s) PO BID PRN No Start Date Active simvastatin 20 mg ta blet RxNorm: 564643 1 Tablet(s) PO daily No Start Date Active Vesicare 5 mg tablet RxNorm: 722744 1 Tablet(s) PO daily No Start Date Active bicalutamide 50 mg t ablet RxNorm: 607877 1 Tablet(s) PO daily No Start Date Active Phenergan 6.25 mg/5 mL syrup RxNorm: 620025 5-10 Milliliter(s) PO QID as needed No Start Date Active sulfamethoxazole 500 mg Tab RxNorm: 418168 1/2 Tablet(s) PO daily No Start Date 12/24/2013 Inactive Plavix 75 mg Tab RxNorm: 324246 1 Tablet(s) PO daily No Start Date 01/26/2011 Inactive aspirin 81 mg Cap, D elayed Release RxNorm: 347079 1 Capsule(s) PO daily No Start Date 01/04/2018 Inactive Bentyl 10 mg capsule RxNorm: 371119 1 Capsule(s) PO QID as needed per dr. tylor pereira No Start Date 01/04/2018 Inactive famotidine 20 mg tablet RxNorm: 011792 1 Tablet(s) PO BID prescribed in ER No Start Date 10/13/2017 Inactive hydrocodone 5 mg-alexey taminophen 325 mg tablet RxNorm: 018007 1 Tablet(s) PO Q6 as needed No Start Date 06/05/2014 Inactive Proscar 5 mg Tab RxNorm: 015427 1 Tablet(s) PO daily No Start Date 09/01/2015 Inactive Plavix 75 mg tablet RxNorm: 613445 1 Tablet(s) PO daily No Start Date 07/03/2012 Inactive albuterol sulfate 2. 5 mg/0.5 mL solution for nebulization RxNorm: 325395 1 inhale INH Q4H as needed No Start Date 05/20/2014 Inactive metoclopramide 5 mg tablet RxNorm: 286230 1 Tablet(s) PO AC & H S prescribed in ER No Start Date 01/04/2018 Inactive amlodipine 5 mg Tab RxNorm: 018235 1 Tablet(s) PO daily No Start Date 03/07/2011 Inactive Namenda 5 mg Tab RxNorm: 944718 1 Tablet(s) PO daily No Start Date 06/23/2011 Inactive Zyrtec 10 mg tablet RxNorm: 7628230 1 Tablet(s) PO daily No Start Date 01/04/2018 Inactive Allergy Relief (ceti rizine) oral RxNorm: 150931 oral No S tart Date 12/19/2016 Inactive fluocinonide 0.05 % Ointment RxNorm: 136479 1 TOP BID PRN No Start Date 12/24/2013 Inactive amlodipine 5 mg tablet RxNorm: 904379 1 Tablet(s) PO daily No Start Date 09/01/2014 Inactive lisinopril Oral RxNorm: Oral No Start Date 12/08/2011 Inactive simvastatin 20 mg Tab RxNorm: 449637 1 Tablet(s) PO daily No Start Date 06/06/2014 Inactive Bentyl 20 mg Tab RxNorm: 735728 1 Tablet(s) PO Q6 PRN No Start Date 06/23/[address] Ingrid Bentyl 10 mg Cap RxNorm: 877924 1 Capsule(s) PO BID No Start Date 06/22/2011 Inactive fluticasone 50 mcg/a ctuation nasal spray,suspension RxNorm: 6022783 1 [place] NASAL BID No Start Date 02/07/2018 Inactive Plavix 75 mg Tab RxNorm: 060856 1 Tablet(s) PO every other day No Start Date 08/24/2011 Inactive lorazepam 0.5 mg tablet RxNorm: 283469 1/2 Tablet(s) PO Q8 PRN No Start Date 02/01/2012 Inactive lisinopril 10 mg tablet RxNorm: 490015 1 Tablet(s) PO daily No Start Date 12/19/2011 Inactive Trulance 3 mg tablet RxNorm: 1265828 1 Tablet(s) PO QAM No Start Date 01/18/2018 Inactive Flomax 0.4 mg 24 hr Cap RxNorm: 840165 1 Capsule(s) PO daily No Start Date 05/28/2014 Inactive Aricept 5 mg Tab RxNorm: 304810 1 Tablet(s) PO daily No Start Date 07/13/2011 Inactive Vitamin D 1,000 unit Tab RxNorm: 011607 1 Tablet(s) PO daily No Start Date 01/04/2018 Inactive Levsin 0.125 mg tablet RxNorm: 2970399 1 Tablet(s) PO QID as needed FOR ABD REJI N No Start Date 11/04/2014 Inactive mirtazapine 7.5 mg t ablet RxNorm: 291714 1/2 Tablet(s) PO daily No Start Date 08/29/2013 Inactive Senior Vitamin Tab RxNorm: 1 Tablet(s) PO daily No Start Date 01/04/2018 Inactive Mobic 15 mg Tab RxNorm: 781499 1 Tablet(s) PO daily No Start Date 07/13/2011 Inactive Medication Administered Medication Codes Instruc tions Start Date Status Kenalog 40 mg/mL suspension for injection RxNorm: 8158510 Milliliter 11/25/2016 No longer Active Influenza Virus Vaccine 0.5 mL RxNorm: 02/06/2013 No longer Active ZOSTAVAX 19,400 unit Sub-Q Soln RxNo rm: [id number] 02/25/2011 No longer A ctive Pneumovax 23 25 mcg/0.5 mL Injection RxNorm: 291286 Milliliter 02/16/2011 No longer Active Influenza Virus [...] Item Item Code Result Date Comp Metabolic [id number] NA 143 mEq/L 04/10/2018 Comp Metabolic Mhu731 K 3.8 mEq/L 04/10/2018 Comp Metabolic Vpg618 CL 105 mEq/L 04/10/2018 Comp Metabolic Xmq096 CO2 30.0 mEq/L 04/10/2018 Comp Metabolic Kec097 AN ION GAP 12 04/10/2018 Comp Metabolic Sch945 GL UCOSE 95 mg/dL 04/10/2018 Comp Metabolic Rqk716 Cr eat 1.2 mg/dL 04/10/2018 Comp Metabolic Jrf630 eG FR 60 ml/min/1.73m2 04/10 Comp Metabolic Qhh369 BUN 22 mg/dL 04/10/2018 Comp Metabolic Gvm977 B/ C Ratio 18.2 Ratio 04/10/2018 Comp Metabolic Qvw129 CA LCIUM 10.3 mg/dL 04/10/2018 Comp Metabolic Oih892 AL K PHOS 113 U/L 04/10/2018 Comp Metabolic Rbf800 T(SGOT) 30 U/L 04/10/2018 Comp Metabolic Nbe284 AL T(SGPT) 19 U/L 04/10/2018 Comp Metabolic Dao278 BI LI T 0.4 mg/dL 04/10/2018 Comp Metabolic Vts840 AL BUMIN 4.2 g/dL 04/10/2018 Comp Metabolic Woo225 TP RO 6.5 g/dL 04/10/2018 Comp Metabolic Hun898 GL OB 2.3 g/dL 04/10/2018 Comp Metabolic Fvw630 A/ G Ratio 1.8 Ratio 04/10/2018 Comp Metabolic Nwh587 Os mo 288 mOsmo 04/10/2018 Lipid Ord30 CHOL 133 mg/dL 04/10/2018 Lipid Ord30 HDL 49.0 mg/dl 04/10/2018 Lipid Ord30 TRIG 68 mg/dL 04/10/2018 Lipid Ord30 LDL 70 mg/dL 04/10/2018 Lipid Ord30 C/HDL 2.7 Ratio 04/10/2018 C RAP A SC [id number] Strep A Negative 01/13/2018 Comp Metabolic Ibm281 NA 134 mEq/L 10/07/2017 Comp Metabolic Kjk116 K 4.5 mEq/L 10/07/2017 Comp Metabolic Axm312 CL 99 mEq/L 10/07/2017 Comp Metabolic Hvh111 CO2 31.0 mEq/L 10/07/2017 Comp Metabolic Awh119 AN ION GAP 9 10/07/2017 Comp Metabolic Gbk240 GL UCOSE 82 mg/dL 10/07/2017 Comp Metabolic Uzl008 Cr eat 1.0 mg/dL 10/07/2017 Comp Metabolic Idu761 eG FR 77 ml/min/1.73m2 10/07 Comp Metabolic Ngj177 BUN 16 mg/dL 10/07/2017 Comp Metabolic Kmy504 B/ C Ratio 16.3 Ratio 10/07/2017 Comp Metabolic Skx540 CA LCIUM 9.6 mg/dL 10/07/2017 Comp Metabolic Lqg505 AL K PHOS 72 U/L 10/07/2017 Comp Metabolic Jlz072 T(SGOT) 21 U/L 10/07/2017 Comp Metabolic Ify710 AL T(SGPT) 14 U/L 10/07/2017 Comp Metabolic Euc168 BI LI T 0.4 mg/dL 10/07/2017 Comp Metabolic Cjw722 AL BUMIN 4.0 g/dL 10/07/2017 Comp Metabolic Mea720 TP RO 5.7 g/dL 10/07/2017 Comp Metabolic Wce547 GL OB 1.7 g/dL 10/07/2017 Comp Metabolic Svg514 A/ G Ratio 2.4 Ratio 10/07/2017 Comp Metabolic Lll803 Os mo 269 mOsmo 10/07/2017 Lipid Ord30 CHOL 135 mg/dL 10/07/2017 Lipid Ord30 HDL 69.0 mg/dl 10/07/2017 Lipid Ord30 TRIG 52 mg/dL 10/07/2017 Lipid Ord30 LDL 56 mg/dL 10/07/2017 Lipid Ord30 C/HDL 2.0 Ratio 10/07/2017 %Hba1C Pho404 % HbA1c 80813-7 5.5 % 09/12/2017 %Hba1C Nul286 Gluc Ave 111 mg/dL 09/12/2017 B12 Pkh046 B12 816.00 pg/ml 09/10/2017 Test(s) Not Perfromed Test(s) Not Performed Test(s) Not Performed. See B elow: 09/09/2017 Test(s) Not Perfromed TEST NAME VIT D 09/09/2017 Test(s) Not Perfromed Rejection Reason NO PAYABLE DX 018 Test(s) Not Perfromed COMMENT PATIENT SAID HE WAS TAKING SUPPLEMENT 09/09/2017 Test(s) Not Perfromed [employer] [place] 018 Lipid Ord30 CHOL 134 mg/dL 04/11/2017 Lipid Ord30 HDL 63.0 mg/dl 04/11/2017 Lipid Ord30 TRIG 45 mg/dL 04/11/2017 Lipid Ord30 LDL 62 mg/dL 04/11/2017 Lipid Ord30 C/HDL 2.1 Ratio 04/11/2017 Tsh Ord6 hTSH II 2.07 uIU/mL 04/11/2017 Body Fluid Crystals Source RIGHT ELBOW 6 Body Fluid Crystals [id number] CRYSTALS, BODY FLUID 02/18/2016 Uric Acid Body Fluid 198776 URIC ACID-FLUID 4.3 mg/dL 02/18/2016 Metabolic Ord15 [...] Ord15 CALCIUM 9.1 mg/dL 02/05/2016 Comp Metabolic Sah858 NA 129 mEq/L 10/08/2015 Comp Metabolic Txl348 K 4.7 mEq/L 10/08/2015 Comp Metabolic Hot644 CL 98 mEq/L 10/08/2015 Comp Metabolic Dsw764 CO2 28.0 mEq/L 10/08/2015 Comp Metabolic Wrs294 AN ION GAP 8 10/08/2015 Comp Metabolic Zhq256 GL UCOSE 84 mg/dL 10/08/2015 Comp Metabolic Mfj444 Cr eat 1.3 mg/dL 10/08/2015 Comp Metabolic Upc704 eG FR 56 ml/min/1.73m2 10/07 Comp Metabolic Gor217 BUN 23 mg/dL 10/08/2015 Comp Metabolic Xjr143 B/ C Ratio 17.8 Ratio 10/08/2015 Comp Metabolic Czx985 CA LCIUM 9.3 mg/dL 10/08/2015 Comp Metabolic Naq483 AL K PHOS 68 U/L 10/08/2015 Comp Metabolic Gcw493 T(SGOT) 24 U/L 10/08/2015 Comp Metabolic Ofv875 AL T(SGPT) 15 U/L 10/08/2015 Comp Metabolic Ngq957 BI LI T 0.5 mg/dL 10/08/2015 Comp Metabolic Nmv953 AL BUMIN 4.0 g/dL 10/08/2015 Comp Metabolic Roa030 TP RO 5.9 g/dL 10/08/2015 Comp Metabolic Svg163 GL OB 1.9 g/dL 10/08/2015 Comp Metabolic Khm548 A/ G Ratio 2.1 Ratio 10/08/2015 Comp Metabolic Gdf115 Os mo 262 mOsmo 10/08/2015 Lipid Ord30 [...] Ord30 C/HDL 2.3 Ratio 05/07/2015 Comp Metabolic Tdr624 NA 132 mEq/L 05/07/2015 Comp Metabolic Iug685 K 4.4 mEq/L 05/07/2015 Comp Metabolic Bys289 CL 97 mEq/L 05/07/2015 Comp Metabolic Jyf405 CO2 30.0 mEq/L 05/07/2015 Comp Metabolic Dhv954 AN ION GAP 9 05/07/2015 Comp Metabolic Kxp511 GL UCOSE 78 mg/dL 05/07/2015 Comp Metabolic Liu448 Cr eat 1.2 mg/dL 05/07/2015 Comp Metabolic Jdt854 eG FR 60 ml/min/1.73m2 05/07 Comp Metabolic Aay513 BUN 25 mg/dL 05/07/2015 Comp Metabolic Kgw521 B/ C Ratio 20.3 Ratio 05/07/2015 Comp Metabolic Wfu429 CA LCIUM 9.6 mg/dL 05/07/2015 Comp Metabolic Vfi083 AL K PHOS 70 U/L 05/07/2015 Comp Metabolic Efq167 T(SGOT) 27 U/L 05/07/2015 Comp Metabolic Yup301 AL T(SGPT) 20 U/L 05/07/2015 Comp Metabolic Tkb450 BI LI T 0.4 mg/dL 05/07/2015 Comp Metabolic Qzv903 AL BUMIN 4.0 g/dL 05/07/2015 Comp Metabolic Ukz674 TP RO 5.8 g/dL 05/07/2015 Comp Metabolic Mhf937 GL OB 1.8 g/dL 05/07/2015 Comp Metabolic Zud623 A/ G Ratio 2.3 Ratio 05/07/2015 Comp Metabolic Epg561 Os mo 268 mOsmo 05/07/2015 Cbc With [...] hTSH II 4.07 uIU/mL 05/07/2015 Comp Metabolic Hae719 NA 134 mEq/L 12/10/2014 Comp Metabolic Qud261 K 4.8 mEq/L 12/10/2014 Comp Metabolic Ujl392 CL 101 mEq/L 12/10/2014 Comp Metabolic Wrw535 CO2 30.0 mEq/L 12/10/2014 Comp Metabolic Rsb605 AN ION GAP 8 12/10/2014 Comp Metabolic Zzj544 GL UCOSE 85 mg/dL 12/10/2014 Comp Metabolic Xat015 Cr eat 1.2 mg/dL 12/10/2014 Comp Metabolic Yqc119 eG FR 65 ml/min/1.73m2 12/10 Comp Metabolic Mcr028 BUN 25 mg/dL 12/10/2014 Comp Metabolic Tgl775 B/ C Ratio 21.7 Ratio 12/10/2014 Comp Metabolic Srs372 CA LCIUM 9.5 mg/dL 12/10/2014 Comp Metabolic Pny277 AL K PHOS 76 U/L 12/10/2014 Comp Metabolic Ndf158 T(SGOT) 27 U/L 12/10/2014 Comp Metabolic Mfh958 AL T(SGPT) 18 U/L 12/10/2014 Comp Metabolic Bnc523 BI LI T 0.5 mg/dL 12/10/2014 Comp Metabolic Sny188 AL BUMIN 4.1 g/dL 12/10/2014 Comp Metabolic Wav603 TP RO 5.7 g/dL 12/10/2014 Comp Metabolic Sxg196 GL OB 1.6 g/dL 12/10/2014 Comp Metabolic Yuv029 A/ G Ratio 2.6 Ratio 12/10/2014 Comp Metabolic Hft860 Os mo 272 mOsmo 12/10/2014 B12 Xma152 B12 1011.00 pg/ml 12/10/2014 Lipid Ord30 CHOL [...] Differential Ord2 RDW 14.3 % 12/10/2014 CBC 8571098 WBC 4.1 10e9/L 02/19/2013 CBC 2505049 RBC 4.39 10e12/L 02/19/2013 CBC 3890023 HGB 14.1 g/dL 02/19/2013 CBC 0633977 HCT DET 41.0 % 02/19/2013 CBC 3210973 MCV 93.4 fL 02/19/2013 CBC 7086523 MCH 32.1 pg 02/19/2013 CBC 4157896 MCHC 34.4 g/dL 02/19/2013 CBC 1807268 PLT 151 10e9/L 02/19/2013 CBC 0733544 MPV 11.8 fL 02/19/2013 CBC 9957307 YOVANNY % 63.2 % 02/19/2013 CBC 5028842 LY % 22.9 % 02/19/2013 CBC 4167968 MON % 11.5 % 02/19/2013 CBC 0983303 EOS % 2.2 % 02/19/2013 CBC 7199558 BASO % 0.2 % 02/19/2013 CBC 9664268 RDW 13.8 % 02/19/2013 CBC 8849888 ABS YOVANNY 2.59 10e9/L 02/19/2013 CBC 0196253 ABS LYMPH 0.94 10e9/L 02/19/2013 CBC 1163225 ABS MONO 0.47 10e9/L 02/19/2013 CBC 3491153 ABS EOS 0.09 10e9/L 02/19/2013 CBC 0618062 ABS BASO 0.01 10e9/L 02/19/2013 CBC 0894826 RDW-SD 46.0 fL 02/19/2013 TSH 4454651 TSH 2.094 uIU/ML 02/19/2013 FREE T4 0929627 FREE T4 1.18 NG/DL 02/19/2013 GFR CALC 3675807 GFR AA >60 ML/MIN 02/19/2013 GFR CALC 8082473 GFR NON -AA >60 ML/MIN 02/19/2013 CHEM 14 4957846 AST 30 U/L 02/19/2013 CHEM 14 7220550 ALT 19 IU/L 02/19/2013 CHEM 14 2371015 BUN 21 MG/DL 02/19/2013 CHEM 14 9655441 ALBUMIN 4.4 GM/DL 02/19/2013 CHEM 14 2011929 CHLORIDE 94 MMOL/L 02/19/2013 CHEM 14 7357172 BILI TOT 0.5 MG/DL 02/19/2013 CHEM 14 7768670 ALK PHOS 75 U/L 02/19/2013 CHEM 14 9921695 SODIUM 133 MMOL/L 02/19/2013 CHEM 14 9012029 CREATINI NE 1.07 MG/DL 02/19/2013 CHEM 14 0473778 CALCIUM 9.6 MG/DL 02/19/2013 CHEM 14 9892913 POTASSIUM 4.6 MMOL/L 02/19/2013 CHEM 14 8623363 PROT TOT 6.1 GM/DL 02/19/2013 CHEM 14 1899905 GLUCOSE 94 MG/DL 02/19/2013 CHEM 14 3557994 BICARB 31 MMOL/L 02/19/2013 CHEM 14 7184644 ANION GAP 8 MEQ/L 02/19/2013 UA 68462 Specific Vass 1.015 DateTime(Free Text in Aprima ) UA 81933 PH 6 DateTime(Free Text in Aprima ) UA 85415 GLUCOSE neg DateTime(Free Text in Aprima ) UA 35838 Protein neg DateTime(Free Text in Aprima ) UA 57227 Blood neg DateTime(Free Text in Aprima ) UA 67215 Bilirubin neg DateTime(Free Text in Aprima ) UA 52862 Ketones neg DateTime(Free Text in Aprima ) UA 53724 Urobilinogen neg DateTime(Free Text in Aprima ) UA 06816 Nitrite neg DateTime(Free Text in ) UA 22547 Leukocytes neg DateTime(Free Text in ) Review [...] tenderness 01/19/2018 None Full Exam - General 1995 Abdomen [...] tenderness 10/16/2012 None Full Exam - General 1995 [...] masses 06/19/2012 None Full Exam - General 1995 Respiratory auscultation Overall: breath sounds clear bilaterally 06/19/2012 None Full Exam - General 1995 Respiratory respiratory effort/rhythm Overall: no retractions 06/19/2012 [...] benign 12/09/2011 None Full Exam - General 1995 [...] distress 03/01/2011 None Full Exam - General 1995 Integument inspection of skin Location: right hand [...] VACC PRSV FREE I NC ANTIG CPT-4: 41287 02/08/2018 URINALYSIS NONAUTO W /O SCOPE CPT-4: 78007 09/26/2017 ADMIN INFLUENZA VIRU S VAC CPT-4: G0008 01/25/2017 FLU VACC PRSV FREE I NC ANTIG CPT-4: 52044 01/25/2017 THER/PROPH/DIAG INJ SC/IM CPT-4: 75308 11/25/2016 TRIAMCINOLONE ACET I [place] NOS CPT-4: J3301 11/25/2016 DRAIN/INJECT JOINT/B URSA CPT-4: 75317 02/17/2016 IMMUNIZATION ADMIN CPT- 4: 52118 05/06/2015 PNEUMOCOCCAL VACC 13 TIFFANIE IM Formatting Model/CDA Sections, Assigned to/Celia Minaya SNOMED CT: [id number] CPT-4: 37332Vsgdsmz 05/06/2015 ADMIN INFLUENZA VIRU S VAC CPT-4: G0008 02/19/2015 FLU VACC 4 TIFFANIE 3 YRS PLUS IM Formatting Model/CDA Sections, Assigned to SNOMED CT: [id number] CPT-4: 53203Ezptfqx 02/19/2015 URINALYSIS NONAUTO W /O SCOPE CPT-4: 22107 05/23/2014 ADMIN INFLUENZA VIRU S VAC CPT-4: G0008 03/26/2014 FLU VAC NO PRSV 4 VA L 3 YRS+ Assigned to/Celia Minaya CPT-4: 60438Mvyrqch 03/26/2014 PRESCRIP TRANSMIT A ERX SY CPT-4: G8553 04/04/2013 ROUTINE VENIPUNCTURE CPT-4: 54066 02/19/2013 ADMIN INFLUENZA VIRU S VAC CPT-4: G0008 02/06/2013 FLULAVAL VACC, 3 YRS & >, IM CPT-4: Q2036 02/06/2013 70808 EST. PATIENT, LEVEL IV CPT-4: 02893 06/19/2012 PRESCRIP TRANSMIT A ERX SY CPT-4: G8553 06/19/2012 PRESCRIP TRANSMIT A ERX SY CPT-4: G8553 03/20/2012 PRESCRIP TRANSMIT A ERX SY CPT-4: G8553 06/23/2011 IMMUNIZATION ADMIN CPT- 4: 86409 02/25/2011 ZOSTER VACC SC (No lloyd stephens, patient supplied vaccine) CPT-4: 65616PJ 02/25/2011 ADMIN PNEUMOCOCCAL V ACCINE SNOMED CT: [id number] CPT-4: G0009 02/16/2011 Pneumococcal Polysac charide Vaccine, 23-Valent, Ad CPT-4: 86471 02/16/2011 ADMIN INFLUENZA VIRU S VAC CPT-4: G0008 02/09/2011 FLULAVAL VACC, 3 YRS & >, IM CPT-4: Q2036 02/09/2011 PRESCRIP TRANSMIT A ERX SY CPT-4: G8553 02/01/2011 URINALYSIS NONAUTO W /O SCOPE CPT-4: 61321 01/27/2011 Vital Signs Date Vital 05/18/2018 Blood Pressure 1: 142/64 Code: 8480-6 BMI: 19.9 Code: 00134-3 Heart Rate 1: 52 bpm Height: 5'9" SpO2: 98% Weight: 135 lbs 04/13/2018 Blood Pressure 1: 128/58 Code: 8480-6 BMI: 21.0 Code: 98386-2 Heart Rate 1: 83 bpm Height: 5'9" SpO2: 94% Weight: 142 lbs 02/08/2018 Blood Pressure 1: 136/76 Code: 8480-6 BMI: 19.9 Code: 61968-7 Heart Rate 1: 78 bpm Height: 5'9" SpO2: 99% Weight: 135 lbs 01/19/2018 Blood Pressure 1: 114/78 Code: 8480-6 BMI: 19.9 Code: 40787-3 Heart Rate 1: 80 bpm Height: 5'9" SpO2: 98% Weight: 135 lbs 01/12/2018 Blood Pressure 1: 130/78 Code: 8480-6 BMI: 19.8 Code: 71851-1 Heart Rate 1: 85 bpm Height: 5'9" SpO2: 97% Weight: 134 lbs 01/05/2018 Blood Pressure 1: 122/70 Code: 8480-6 BMI: 19.6 Code: 81355-6 Heart Rate 1: 87 bpm Height: 5'9" SpO2: 96% Weight: 133 lbs 11/14/2017 Blood Pressure 1: 130/70 Code: 8480-6 BMI: 19.5 Code: 69217-6 Heart Rate 1: 75 bpm Height: 5'9" SpO2: 98% Weight: 132 lbs 2017 Blood Pressure 1: 116/70 Code: 8480-6 BMI: 19.5 Code: 31017-9 Heart Rate 1: 55 bpm Height: 5'9" SpO2: 95% Weight: 132 lbs 10/13/2017 Blood Pressure 1: 130/70 Code: 8480-6 BMI: 19.3 Code: 60610-9 Heart Rate 1: 67 bpm Height: 5'9" SpO2: 98% Weight: 131 lbs 09/26/2017 Blood Pressure 1: 126/70 Code: 8480-6 BMI: 19.1 Code: 39430-2 Heart Rate 1: 66 bpm Height: 5'9" SpO2: 100% Weight: 129 lbs 8 oz 09/12/2017 Blood Pressure 1: 120/70 Code: 8480-6 BMI: 19.5 Code: 63613-0 Heart Rate 1: 83 bpm Height: 5'9" SpO2: 99% Weight: 132 lbs 09/09/2017 Blood Pressure 1: 126/70 Code: 8480-6 BMI: 19.3 Code: 16459-2 Heart Rate 1: 80 bpm Height: 5'9" SpO2: 98% Weight: 131 lbs 08/17/2017 Blood Pressure 1: 130/74 Code: 8480-6 BMI: 19.6 Code: 65866-9 Heart Rate 1: 72 bpm Height: 5'9" SpO2: 98% Weight: 133 lbs 07/20/2017 Blood Pressure 1: 124/62 Code: 8480-6 BMI: 19.8 Code: 65083-7 Heart Rate 1: 65 bpm Height: 5'9" SpO2: 96% Weight: 134 lbs 07/01/2017 Blood Pressure 1: 134/64 Code: 8480-6 BMI: 21.0 Code: 47496-7 Height: 5'9" Weight: 142 lbs 06/21/2017 Blood Pressure 1: 142/80 Code: 8480-6 BMI: 21.0 Code: 34474-0 Heart Rate 1: 63 bpm Height: 5'9" SpO2: 98% Weight: 142 lbs 03/21/2017 Blood Pressure 1: 128/66 Code: 8480-6 BMI: 20.8 Code: 76455-8 Heart Rate 1: 61 bpm Height: 5'9" SpO2: 98% Weight: 141 lbs 03/08/2017 Blood Pressure 1: 134/68 Code: 8480-6 BMI: 20.4 Code: 84125-8 Heart Rate 1: 56 bpm Height: 5'9" SpO2: 99% Weight: 138 lbs 01/25/2017 Blood Pressure 1: 98/62 Code: 8480-6 BMI: 20.6 Code: 29757-1 Heart Rate 1: 71 bpm Height: 5'9" SpO2: 97% Weight: 139 lbs 8 oz 12/20/2016 Blood Pressure 1: 120/68 Code: 8480-6 BMI: 20.4 Code: 29696-2 Heart Rate 1: 70 bpm Height: 5'9" [...] 1: 120/60 Code: 8480-6 BMI: 20.7 Code: 13431-6 Heart Rate 1: 74 bpm Height: 5'9" SpO2: 95% Weight: 140 lbs 08/23/2016 Blood Pressure 1: 118/68 Code: 8480-6 BMI: 20.8 Code: 62710-7 Heart Rate 1: 54 bpm Height: 5'9" SpO2: 97% Weight: 141 lbs 04/26/2016 Blood Pressure 1: 108/64 Code: 8480-6 BMI: 21.0 Code: 73827-7 Heart Rate 1: 62 bpm Height: 5'9" SpO2: 95% Weight: 142 lbs 02/17/2016 Blood Pressure 1: 138/80 Code: 8480-6 BMI: 20.2 Code: 91163-9 Heart Rate 1: 76 bpm Height: 5'9" SpO2: 97% Weight: 137 lbs 02/09/2016 Blood Pressure 1: 140/76 Code: 8480-6 BMI: 20.2 Code: 52563-9 Heart Rate 1: 72 bpm Height: 5'9" SpO2: 96% Weight: 137 lbs 02/03/2016 Blood Pressure 1: 136/80 Code: 8480-6 BMI: 20.7 Code: 15855-3 Heart Rate 1: 86 bpm Height: 5'9" SpO2: 96% Weight: 140 lbs 01/26/2016 Blood Pressure 1: 144/78 Code: 8480-6 BMI: 20.7 Code: 64309-9 Heart Rate 1: 73 bpm Height: 5'9" SpO2: 97% Temperature: 37.0 (C ) / 98.6 (F) Weight: 140 lbs 01/21/2016 Blood Pressure 1: 116/62 Code: 8480-6 BMI: 20.4 Code: 89374-9 Heart Rate 1: 66 bpm Height: 5'9" SpO2: 97% Weight: 138 lbs 12/29/2015 Blood Pressure 1: 130/74 Code: 8480-6 BMI: 20.4 Code: 53162-0 Heart Rate 1: 51 bpm Height: 5'9" SpO2: 98% Weight: 138 lbs 09/02/2015 Blood Pressure 1: 126/60 Code: 8480-6 BMI: 22.3 Code: 72193-7 Heart Rate 1: 55 bpm Height: 5'9" SpO2: 96% Weight: 151 lbs 05/06/2015 Blood Pressure 1: 132/72 Code: 8480-6 BMI: 21.0 Code: 06744-7 Heart Rate 1: 63 bpm Height: 5'9" SpO2: 97% Weight: 142 lbs 03/05/2015 Blood Pressure 1: 130/68 Code: 8480-6 BMI: 21.0 Code: 71824-6 Heart Rate 1: 61 bpm Height: 5'9" SpO2: 96% Weight: 142 lbs 12/04/2014 Blood Pressure 1: 122/64 Code: 8480-6 BMI: 21.3 Code: 90940-5 Heart Rate 1: 72 bpm Height: 5'9" Weight: 144 lbs 09/24/2014 Blood Pressure 1: 142/80 Code: 8480-6 BMI: 20.4 Code: 66696-7 Heart Rate 1: 80 bpm Height: 5'9" Weight: 138 lbs 09/09/2014 Blood Pressure 1: 122/74 Code: 8480-6 BMI: 20.5 Code: 89429-5 Heart Rate 1: 64 bpm Height: 5'9" Weight: 139 lbs 07/26/2014 Blood Pressure 1: 136/82 Code: 8480-6 BMI: 20.4 Code: 28347-4 Heart Rate 1: 87 bpm Height: 5'9" SpO2: 92% Weight: 138 lbs 07/10/2014 Blood Pressure 1: 130/74 Code: 8480-6 BMI: 21.1 Code: 25842-5 Heart Rate 1: 64 bpm Height: 5'9" Weight: 143 lbs 06/06/2014 Blood Pressure 1: 142/88 Code: 8480-6 BMI: 20.4 Code: 58517-7 Heart Rate 1: 68 bpm Height: 5'9" Weight: 138 lbs 05/29/2014 Blood Pressure 1: 108/72 Code: 8480-6 BMI: 20.5 Code: 82275-3 Heart Rate 1: 60 bpm Height: 5'9" Weight: 139 lbs 05/20/2014 Blood Pressure 1: 140/72 Code: 8480-6 BMI: 21.6 Code: 41402-8 Heart Rate 1: 60 bpm Height: 5'9" SpO2: 98% Temperature: 36.2 (C ) / 97.2 (F) Weight: 146 lbs 03/25/2014 Blood Pressure 1: 128/60 Code: 8480-6 BMI: 21.4 Code: 29571-7 Heart Rate 1: 62 bpm Height: 5'9" Weight: 145 lbs 02/08/2014 Blood Pressure 1: 136/82 Code: 8480-6 BMI: 21.3 Code: 32338-4 Heart Rate 1: 68 bpm Height: 5'9" Weight: 144 lbs 12/24/2013 Blood Pressure 1: 122/76 Code: 8480-6 BMI: 21.6 Code: 17883-0 Heart Rate 1: 58 bpm Height: 5'9" Weight: 146 lbs 11/20/2013 Blood Pressure 1: 112/62 Code: 8480-6 BMI: 20.7 Code: 51407-8 Heart Rate 1: 56 bpm Height: 5'9" Weight: 140 lbs 10/30/2013 Blood Pressure 1: 130/68 Code: 8480-6 BMI: 20.1 Code: 10033-9 Heart Rate 1: 68 bpm Height: 5'9" SpO2: 96% Weight: 136 lbs 10/08/2013 Blood Pressure 1: 128/72 Code: 8480-6 BMI: 20.8 Code: 65170-9 Heart Rate 1: 60 bpm Height: 5'9" Temperature: 36.6 (C ) / 97.8 (F) Weight: 141 lbs 06/18/2013 Blood Pressure 1: 124/78 Code: 8480-6 BMI: 20.8 Code: 25890-4 Heart Rate 1: 64 bpm Height: 5'9" Weight: 141 lbs 04/04/2013 Blood Pressure 1: 138/60 Code: 8480-6 BMI: 20.8 Code: 47435-9 Heart Rate 1: 56 bpm Height: 5'9" Weight: 141 lbs 02/19/2013 Blood Pressure 1: 152/74 Code: 8480-6 BMI: 21.0 Code: 91073-0 Heart Rate 1: 60 bpm Height: 5'9" Weight: 142 lbs 10/16/2012 Blood Pressure 1: 122/70 Code: 8480-6 BMI: 20.8 Code: 50566-5 Heart Rate 1: 64 bpm Height: 5'9" Weight: 141 lbs 06/19/2012 Blood Pressure 1: 120/72 Code: 8480-6 BMI: 21.1 Code: 62028-6 Heart Rate 1: 60 bpm Height: 5'9" Weight: 143 lbs 03/20/2012 Blood Pressure 1: 114/76 Code: 8480-6 Heart Rate 1: 60 bpm Respiratory Rate: 16 bpm Weight: 143 lbs 01/24/2012 Blood Pressure 1: 134/70 Code: 8480-6 Heart Rate 1: 64 bpm Weight: 143 lbs 12/20/2011 Blood Pressure 1: 98/72 Code: 8480-6 BMI: 21.1 Code: 63799-8 Heart Rate 1: 60 bpm Height: 5'9" Respiratory Rate: 16 bpm Weight: 143 lbs 12/09/2011 Blood Pressure 1: 110/60 Code: 8480-6 Heart Rate 1: 66 bpm SpO2: 98% Weight: 141 lbs 08/25/2011 Blood Pressure 1: 112/70 Code: 8480-6 BMI: 20.8 Code: 50015-3 Heart Rate 1: 54 bpm Height: 5'9" Respiratory Rate: 16 bpm Weight: 141 lbs 06/23/2011 Blood Pressure 1: 126/64 Code: 8480-6 Heart Rate 1: 60 bpm Respiratory Rate: 16 bpm Weight: 142 lbs 04/19/2011 Blood Pressure 1: 124/64 Code: 8480-6 BMI: 21.1 Code: 71404-9 Heart Rate 1: 64 bpm Height: 5'9" Respiratory Rate: 16 bpm Weight: 143 lbs 03/23/2011 Blood Pressure 1: 137/71 Code: 8480-6 Heart Rate 1: 57 bpm 03/08/2011 Blood Pressure 1: 154/70 Code: 8480-6 BMI: 20.8 Code: 03969-0 Heart Rate 1: 60 bpm Height: 5'9" Respiratory Rate: 16 bpm Weight: 141 lbs 03/01/2011 Blood Pressure 1: 178/80 Code: 8480-6 Blood Pressure 2: 168/70 Code: 8480-6 BMI: 24.1 Code: 98999-1 Heart Rate 1: 60 bpm Height: 5'9" Respiratory Rate: 16 bpm Weight: 163 lbs 02/01/2011 Blood Pressure 1: 162/84 Code: 8480-6 Heart Rate 1: 60 bpm Respiratory Rate: 16 bpm Weight: 144 lbs 01/27/2011 Blood Pressure 1: 138/54 Code: 8480-6 BMI: 21.1 Code: 68346-6 Heart Rate 1: 68 bpm Height: 5'9" Respiratory Rate: 16 bpm Weight: 143 lbs 01/26/2011 Blood Pressure 1: 148/86 Code: 8480-6 BMI: 21.3 Code: 84449-9 Heart Rate 1: 74 bpm Height: 5'9" Weight: 144 lbs 01/15/2011 Blood Pressure 1: 136/76 Code: 8480-6 BMI: 20.5 Code: 36396-9 Heart Rate 1: 70 bpm Height: 5'10" Weight: 141 lbs 01/06/2011 Blood Pressure 1: 148/72 Code: 8480-6 BMI: 20.2 Code: 93631-6 Heart Rate 1: 72 bpm Height: 5'10" [...] increasing 03/08/2017 None cough Location in the [facility] 01/25/2017 None hypertension Quality [facility] [...] ble 01/25/2017 None cough Location in the [facility] 12/20/2016 None cough Quality intermitte nt [...] lightheadedness 05/29/2014 None cough Location in the [facility] 05/20/2014 None cough Quality dry 05/20/2014 None [...] contacts 05/20/2014 None cough Location in the [facility] 03/25/2014 None cough Quality hacking 03/25/2014 None [...] li sinopril and dosage and dr salena rec hypertension Onset and Resolution ongoing 01/24/2012 [...] started him o n lisinopril. hypertension Quality [facility] 03/08/2011 Dr Merlos increased amlod [...] Exacerbating Factors stress 03/08/2011 None hypertension Quality [facility] 03/01/2011 None hypertension Onset and Resolution [...] Encounters Encounter Performer Loca tion Codes Date ([id number]) 63652 EST. 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 CPT-4: 06114 05/18/2018 ([id number]) 58758 EST. P ATIENT, LEVEL III Diagnosis: Essential (primary) hypertension[ICD10: I10] Ale Carlos MD, C CPT-4: 14432 04/13/2018 ([id number]) 04238 EST. P ATIENT, LEVEL IV Diagnosis: Irritable bowel syndrome with constipation[ICD10: K58.1] Diagnosis: Other lesions of oral mucosa[ICD10: K13.79] Diagnosis: Dry mouth, unspecified[ICD10: R68.2] Diagnosis: Encounter for immunization[ICD10: Z23] Diagnosis: Essential (primary) hypertension[ICD10: I10] Ale Carlos MD, C CPT-4: 99199 02/08/2018 ([id number]) 35505 EST. P ATIENT, LEVEL III Diagnosis: Slow transit constipation[ICD10: K59.01] Diagnosis: Dry mouth, unspecified[ICD10: R68.2] Nelly Carlos MD, [facility] CPT-4: 56964 01/19/2018 ([id number]) Miscellaneou s no charge Diagnosis: Acute pharyngitis, unspecified[ICD10: J02.9] Nelly Carlos MD, [facility] CPT-4: 58003 01/13/2018 ([id number]) 39589 EST. P ATIENT, LEVEL III Diagnosis: Candidal stomatitis[ICD10: B37.0] Diagnosis: Cough[ICD10: R05] Nelly Carlos MD, [facility] CPT-4: 48369 01/12/2018 ([id number]) 75428 EST. 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 P ATIENT, LEVEL IV Diagnosis: Irritable bowel syndrome with constipation[ICD10: K58.1] Diagnosis: Malignant neoplasm of prostate[ICD10: C61] Ale Carlos MD, [facility] CPT-4: 21197 11/14/2017 [id number] EST. PATIENT, LEVEL IV Diagnosis: Slow transit constipation[ICD10: K59.01] Diagnosis: Gastro-esophageal reflux disease without esophagitis[ICD10: K21.9] Ruchi Carlos MD, [facility] CPT-4: 33429 2017 ([id number]) 08645 EST. P ATIENT, LEVEL IV Diagnosis: Essential (primary) hypertension[ICD10: I10] Diagnosis: Slow transit constipation[ICD10: K59.01] Diagnosis: Underweight[ICD10: R63.6] Diagnosis: Gastro-esophageal reflux disease without esophagitis[ICD10: K21.9] Ale Carlos MD, [facility] CPT-4: 15206 10/13/2017 ([id number]) 38498 EST. P ATIENT, LEVEL IV Diagnosis: Slow transit constipation[ICD10: K59.01] Diagnosis: Gastroparesis[ICD10: K31.84] Diagnosis: Gastro-esophageal reflux disease without esophagitis[ICD10: K21.9] Diagnosis: Dysuria[ICD10: R30.0] Ale Carlos MD, [facility] CPT-4: 08010 09/26/2017 ([id number]) 58431 EST. P ATIENT, LEVEL IV Diagnosis: Other abnormal glucose[ICD10: R73.09] Diagnosis: Slow transit constipation[ICD10: K59.01] Ale Carlos MD, [facility] CPT-4: 39776 09/12/2017 67628 EST. PATIENT, LEVEL III Diagnosis: Other fatigue[ICD10: R53.83] Ruchi Carlos MD, [facility] CPT-4: 92687 09/09/2017 ([id number]) 33975 EST. P ATIENT, LEVEL IV Diagnosis: Slow transit constipation[ICD10: K59.01] Diagnosis: Irritable bowel syndrome with constipation[ICD10: K58.1] Diagnosis: Essential (primary) hypertension[ICD10: I10] Ale Carlos MD, [facility] CPT-4: 40491 08/17/2017 ([id number]) 51292 EST. P ATIENT, LEVEL III Diagnosis: Slow transit constipation[ICD10: K59.01] Diagnosis: Gastroparesis[ICD10: K31.84] Ale Carlos MD, [facility] CPT-4: 58675 07/20/2017 13640 EST. PATIENT, LEVEL III Diagnosis: Irritable bowel syndrome with constipation[ICD10: K58.1] Ruchi Carlos MD, [facility] CPT-4: 64033 07/01/2017 ([id number]) 71932 EST. P ATIENT, LEVEL IV Diagnosis: Essential (primary) hypertension[ICD10: I10] Diagnosis: Gas pain[ICD10: R14.1] Diagnosis: Generalized anxiety disorder[ICD10: F41.1] Diagnosis: Cervicalgia[ICD10: M54.2] Diagnosis: Pain in thoracic spine[ICD10: M54.6] Diagnosis: Unsteadiness on feet[ICD10: R26.81] Ale Carlos MD, [facility] CPT- 4: 22915 06/21/2017 ([id number]) 40019 EST. P ATIENT, LEVEL III Diagnosis: Essential (primary) hypertension[ICD10: I10] Ale Carlos MD, [facility] CPT-4: 87342 03/21/2017 90048 EST. PATIENT, LEVEL III Diagnosis: Other allergic rhinitis[ICD10: J30.89] Nelly Carlos MD, [facility] CPT-4: 05076 03/08/2017 ([id number]) 07894 EST. P ATIENT, LEVEL III Diagnosis: Encounter for immunization[ICD10: Z23] Diagnosis: Other hypotension[ICD10: I95.89] Ale Carlos MD, [facility] CPT-4: 20238 01/25/2017 ([id number]) 41028 EST. P ATIENT, LEVEL III Diagnosis: Essential (primary) hypertension[ICD10: I10] Diagnosis: Acute recurrent maxillary sinusitis[ICD10: J01.01] Ale Carlos MD, [facility] CPT-4: 48505 12/20/2016 ([id number]) 41637 EST. P ATIENT, LEVEL III Diagnosis: Acute recurrent ethmoidal sinusitis[ICD10: J01.21] Ale Carlos MD, C CPT-4: 00867 12/01/2016 ([id number]) 80306 EST. P ATIENT, LEVEL III Diagnosis: Bronchitis, not specified as acute or chronic[ICD10: J40] Diagnosis: Cough[ICD10: R05] Ale Carlos MD, [facility] CPT-4: 38249 11/25/2016 ([id number]) 23886 EST. P ATIENT, LEVEL III Diagnosis: Cough[ICD10: R05] Diagnosis: Bronchitis, not specified as acute or chronic[ICD10: J40] Diagnosis: Candidal esophagitis[ICD10: B37.81] Ale Carlos MD, [facility] CPT- 4: 83834 11/18/2016 ([id number]) 87443 EST. P ATIENT, LEVEL IV Diagnosis: Essential (primary) hypertension[ICD10: I10] Diagnosis: Mild cognitive impairment, so stated[ICD10: G31.84] Ale Carlos MD, [facility] CPT-4: 79507 08/23/2016 ([id number]) 91287 EST. P ATIENT, LEVEL III Diagnosis: Essential (primary) hypertension[ICD10: I10] Ale Carlos MD, C CPT-4: 58097 04/26/2016 ([id number]) Miscellaneou s no charge Diagnosis: Olecranon bursitis, right elbow[ICD10: M70.21] Nelly Carlos MD, [facility] CPT-4: 69146 02/09/2016 ([id number]) 75583 EST. P ATIENT, LEVEL III Diagnosis: Olecranon bursitis, right elbow[ICD10: M70.21] Nelly Carlos MD, [facility] CPT-4: 28382 02/03/2016 ([id number]) 20140 EST. P ATIENT, LEVEL III Diagnosis: Generalized abdominal tenderness[ICD10: R10.817] Ale Carlos MD, [facility] CPT-4: 23704 01/26/2016 92932 EST. PATIENT, LEVEL IV Diagnosis: Other allergic rhinitis[ICD10: J30.89] Ruchi Carlos MD, [facility] CPT-4: 62253 01/21/2016 ([id number]) 59081 EST. P ATIENT, LEVEL IV Diagnosis: Essential (primary) hypertension[ICD10: I10] Diagnosis: Hypo-osmolality and hyponatremia[ICD10: E87.1] Ale Carlos MD, [facility] CPT-4: 83103 12/29/2015 ([id number]) 36263 EST. P ATIENT, LEVEL IV Diagnosis: Essential (primary) hypertension[ICD10: I10] Diagnosis: Mild cognitive impairment, so stated[ICD10: G31.84] Ale Carlos MD, [facility] CPT-4: 55652 09/02/2015 ([id number]) 11482 EST. P ATIENT, LEVEL IV Diagnosis: Mixed hyperlipidemia[ICD10: E78.2] Diagnosis: Generalized anxiety disorder[ICD10: F41.1] Diagnosis: Mild cognitive impairment, so stated[ICD10: G31.84] Diagnosis: Essential (primary) hypertension[ICD10: I10] Diagnosis: Encounter for immunization[ICD10: Z23] Ale Carlos MD, [facility] CPT-4: 42018 05/06/2015 ([id number]) 04773 EST. 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 CPT-4: 34194 03/05/2015 ([id number]) 96866 EST. P ATIENT, LEVEL IV Diagnosis: ESSENTIAL HYPERTENSION[ICD9: 401.9] Diagnosis: GENERALIZED ANXIETY DISEASE[ICD9: 300.02] Diagnosis: MILD COGNITIVE IMPAIREMT[ICD9: 331.83] Diagnosis: IRRITABLE COLON[ICD9: 564.1] Ale Carlos MD, [facility] CPT-4: 66674 12/04/2014 ([id number]) 62350 EST. P ATIENT, LEVEL IV Diagnosis: Abdominal pain[ICD9: 789.00] Diagnosis: GENERALIZED ANXIETY DISEASE[ICD9: 300.02] Diagnosis: Hyponatremia[ICD9: 276.1] Diagnosis: ESSENTIAL HYPERTENSION[ICD9: 401.9] Nelly Carlos MD, [facility] CPT-4: 06296 09/24/2014 ([id number]) 89985 EST. P ATIENT, LEVEL IV Diagnosis: ESSENTIAL HYPERTENSION[ICD9: 401.9] Diagnosis: Osteoarthritis[ICD9: 715.90] Diagnosis: Mild cognitive impairment with memory loss[ICD9: 331.83] Ale Carlos MD, [facility] CPT-4: 04452 09/09/2014 ([id number]) 44528 EST. P ATIENT, LEVEL III Diagnosis: GENERALIZED ANXIETY DISEASE[ICD9: 300.02] Diagnosis: Depression[ICD9: 311] Ale Carlos MD, [facility] CPT-4: 44791 07/26/2014 ([id number]) 38245 EST. P ATIENT, LEVEL IV Diagnosis: ESSENTIAL HYPERTENSION[ICD9: 401.9] Diagnosis: GENERALIZED ANXIETY DISEASE[ICD9: 300.02] Diagnosis: MILD COGNITIVE IMPAIREMT[ICD9: 331.83] Ale Carlos MD, [facility] CPT-4: 98755 07/10/2014 ([id number]) 91320 EST. P ATIENT, LEVEL IV Diagnosis: Dizziness[ICD9: 780.4] Diagnosis: GENERALIZED ANXIETY DISEASE[ICD9: 300.02] Diagnosis: Depression[ICD9: 311] Diagnosis: ESSENTIAL HYPERTENSION[ICD9: 401.9] Diagnosis: Urinary frequency[ICD9: 788.41] Ale Carlos MD, [facility] CPT-4: 66518 06/06/2014 ([id number]) 84108 EST. P ATIENT, LEVEL IV Diagnosis: ESSENTIAL HYPERTENSION[ICD9: 401.9] Diagnosis: GENERALIZED ANXIETY DISEASE[ICD9: 300.02] Diagnosis: Mild cognitive impairment with memory loss[ICD9: 331.83] Ale Carlos MD, [facility] CPT-4: 74637 05/29/2014 ([id number]) 74575 EST. P ATIENT, LEVEL IV Diagnosis: Pneumonia[ICD9: 486] Diagnosis: COUGH[ICD9: 786.2] Diagnosis: Hyponatremia[ICD9: 276.1] Diagnosis: ALLERGIC RHINITIS[ICD9: 477.9] Ale Carlos MD, [facility] CPT-4: 60173 05/20/2014 ([id number]) 90453 EST. P ATIENT, LEVEL III Diagnosis: ESSENTIAL HYPERTENSION[ICD9: 401.9] Diagnosis: Cough[ICD9: 786.2] Ale Carlos MD, [facility] CPT-4: 99491 03/25/2014 ([id number]) 93750 EST. P ATIENT, LEVEL III Diagnosis: COUGH[ICD9: 786.2] Diagnosis: ALLERGIC RHINITIS[ICD9: 477.9] Nelly Carlos MD, [facility] CPT- 4: 28702 02/08/2014 ([id number]) 93553 EST. P ATIENT, LEVEL III Diagnosis: ESSENTIAL HYPERTENSION[ICD9: 401.9] Diagnosis: Nasal congestion[ICD9: 478.19] Ale Carlos MD, [facility] CPT-4: 64723 12/24/2013 ([id number]) 05151 EST. P ATIENT, LEVEL III Diagnosis: Seasonal allergies[ICD9: 477.9] Diagnosis: Nasal congestion[ICD9: 478.19] Diagnosis: ABNORMAL LOSS OF WEIGHT[ICD9: 783.21] Ale Carlos MD, [facility] CPT-4: 75597 11/20/2013 ([id number]) 78588 EST. P ATIENT, LEVEL III Diagnosis: ABNORMAL LOSS OF WEIGHT[ICD9: 783.21] Diagnosis: MALAISE AND FATIGUE[ICD9: 780.79] Diagnosis: Hyponatremia[ICD9: 276.1] Nelly Carlos MD, [facility] CPT- 4: 61940 10/30/2013 ([id number]) 02546 EST. P ATIENT, LEVEL III Diagnosis: Acute maxillary sinusitis[ICD9: 461.0] Diagnosis: COUGH[ICD9: 786.2] Ale Carlos MD, [facility] CPT-4: 92087 10/08/2013 ([id number]) 26442 EST. P ATIENT, LEVEL IV Diagnosis: ESSENTIAL HYPERTENSION[SNOMED: 45231845] Diagnosis: GENERALIZED ANXIETY DISEASE[ICD9: 300.02] Diagnosis: OSTEOARTH NOS-UNSPEC[ICD9: 715.90] Diagnosis: Coronary artery disease[ICD9: 414.00] Ale Carlos MD, [facility] CPT-4: 32905 06/18/2013 ([id number]) 00313 EST. P ATIENT, LEVEL III Diagnosis: ESSENTIAL HYPERTENSION[SNOMED: 29797424] Ale Carlos MD, [facility] CPT-4: 91336 04/04/2013 ([id number]) 55883 EST. P ATIENT, LEVEL IV Diagnosis: ESSENTIAL HYPERTENSION[SNOMED: 40996318] Diagnosis: Leukopenia[ICD9: 288.50] Diagnosis: Encounter for long-term (current) use of other medications[ICD9: V58.69] Ale Carlos MD, [facility] CPT-4: 69016 02/19/2013 ([id number]) 67839 EST. P ATIENT, LEVEL IV Diagnosis: ESSENTIAL HYPERTENSION[SNOMED: 20006056] Diagnosis: MILD COGNITIVE IMPAIREMT[ICD9: 331.83] Ale Carlos MD, [facility] CPT-4: 76010 10/16/2012 ([id number]) 78089 EST. P ATIENT, LEVEL IV Diagnosis: ESSENTIAL HYPERTENSION[SNOMED: 58940619] Diagnosis: GENERALIZED ANXIETY DISEASE[ICD9: 300.02] Diagnosis: IRRITABLE COLON[ICD9: 564.1] Ale Carlos MD, [facility] CPT-4: 21532 03/20/2012 09808 EST. PATIENT, LEVEL IV Diagnosis: ESSENTIAL HYPERTENSION[SNOMED: 91474449] Diagnosis: Osteoarthritis[ICD9: 715.90] Diagnosis: HYPERLIPIDEMIA[ICD9: 272.4] Ale Carlos MD, [facility] CPT-4: 86785 01/24/2012 61043 EST. PATIENT, LEVEL IV Diagnosis: ESSENTIAL HYPERTENSION[SNOMED: 59084946] Diagnosis: BPH W URINARY OBS/LUTS[ICD9: 600.01] Ale Carlos MD, [facility] CPT-4: 46899 12/20/2011 ([id number]) 53828 EST. P ATIENT, LEVEL III Diagnosis: Lump in the groin[ICD9: 789.30] Ale Carlos MD, [facility] CPT-4: 17279 12/09/2011 ([id number]) 91868 EST. P ATIENT, LEVEL IV Diagnosis: ESSENTIAL HYPERTENSION[SNOMED: 87784581] Diagnosis: Mild cognitive impairment[ICD9: 331.83] Ale Carlos MD, [facility] CPT-4: 20613 08/25/2011 ([id number]) 13871 EST. P ATIENT, LEVEL IV Diagnosis: ESSENTIAL HYPERTENSION[SNOMED: 98561491] Diagnosis: GENERALIZED ANXIETY DISEASE[ICD9: 300.02] Diagnosis: MILD COGNITIVE IMPAIREMT[ICD9: 331.83] Diagnosis: IRRITABLE COLON[ICD9: 564.1] Ale Carlos MD, [facility] CPT-4: 16692 06/23/2011 ([id number]) 70726 EST. 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 PATIENT, LEVEL I Diagnosis: ESSENTIAL HYPERTENSION[SNOMED: 36332380] Ale Carlos MD, [facility] CPT-4: 51913 03/23/2011 33959 EST. PATIENT, LEVEL III Diagnosis: ESSENTIAL HYPERTENSION[SNOMED: 26434103] Diagnosis: Laceration of finger, index[ICD9: 883.0] Ale Carlos MD, C CPT-4: 22343 03/08/2011 98335 EST. PATIENT, LEVEL III Diagnosis: ESSENTIAL HYPERTENSION[SNOMED: 15576740] Diagnosis: Irritable bowel syndrome (IBS)[ICD9: 564.1] Ale Carlos MD, [facility] CPT-4: 80153 03/01/2011 48690 EST. PATIENT, LEVEL IV Diagnosis: Mild cognitive impairment with memory loss[ICD9: 331.83] Diagnosis: GENERALIZED ANXIETY DISEASE[ICD9: 300.02] Diagnosis: Bruising[ICD9: 924.9] Diagnosis: HYDROCELE[ICD9: 603.9] Ale Carlos MD, [facility] CPT-4: 78117 02/01/2011 49925 EST. PATIENT, LEVEL III Diagnosis: Testicular pain[ICD9: 608.9] Diagnosis: GENERALIZED ANXIETY DISEASE[ICD9: 300.02] Nelly Carlos MD, [facility] CPT-4: 61324 01/27/2011 29692 EST. PATIENT, LEVEL III Diagnosis: Arm bruise[ICD9: 923.9] Nelly Carlos MD, [facility] CPT-4: 97522 01/26/2011 OFFICE VISIT, NEW - LEVEL 4 Diagnosis: DIARRHEA[ICD9: 787.91] Diagnosis: Elevated liver function tests[ICD9: 790.6] Diagnosis: Abdominal discomfort[ICD9: 789.00] Ale Carlos MD, [facility] CPT- 4: 26391 01/06/2011 Plan of Care Planned Activity Notes [...] nail debridement. 05/18/2018 Appointment: Ale Carlos WPtel: [address] [place], [place] [phone] (15 min) Moderate 05/18/2018 Patient Education: Patient [...] mouth discomfort. 04/13/2018 Appointment: Ale Carlos WPtel: [facility] (30 min) Complex 04/13/2018 Patient Education: Patient [...] GI upset. 02/08/2018 Appointment: Ale Carlos [facility]: [facility] ([place] min) Complex 02/08/2018 Patient Education: Patient Medication Summary Completed 02/08/2018 Patient Education: Hypertension Completed 02/08/2018 Appointment: Nelly Keen [facility]Ptel[facility] [place] (15 min) Moderate 02/02/2018 Visit Plan: Najahtaohwvr-zjdtelg-zy start trulance 3mg daily Dry mouth-biotene mouth spray 01/19/2018 Appointment: Ale Carlos WPtel: [facility] (30 min) Complex 01/19/2018 Patient Education: Patient [...] or concerns 01/12/2018 Appointment: Nelly Keen WPtel: [phone] (15 min) Moderate 01/12/2018 Patient Education: [...] be helping his symptoms. He is reporting stave jointer pain - i suspect that some of this is due to his eating early at night then taking at least 10 pills at bedtime without any food in his stomach, then excessive acid production with the pill burden causing him to wake up with pain in the stave jointer hours. I have recommended that he is to eat 1/2 a sandwich with his ensure at bedtime. 01/05/2018 Appointment: Ale Carlos WPtel: [phone] [facility] (15 min) Moderate 01/05/2018 Patient Education: Patient Medication Summary Completed 01/05/2018 Appointment: Ale Carlos WPtel: [facility] (30 min) Complex 01/04/2018 Visit Plan: Irritable [...] 11/03/2017 Care Plan: Referral Order SNOMED-CT : 169208854 Pending 10/28/2017 Visit Plan: Constipation - uncontro [...] not improving. 2017 Appointment: Ruchi Agee WPtel: [address] [place], [place] [phone] (15 min) Moderate 2017 Patient Education: Patient [...] portion size. 10/13/2017 Appointment: Ale Carlos WPtel: [facility] (30 min) Complex 10/13/2017 Patient Education: Patient [...] the medication. 09/26/2017 Appointment: Ale Carlos WPtel: [facility] (15 min) Moderate 09/26/2017 Patient Education: Patient Medication Summary Completed 09/26/2017 Appointment: Ale Carlos WPtel: [facility] (30 min) Complex 09/14/2017 Visit Plan: Constipation [...] the ER. 09/12/2017 Appointment: Ale Carlos WPtel: [facility] (30 min) Complex 09/12/2017 Patient Education: Patient Medication Summary Completed 09/12/2017 Visit Plan: Ongoing fatigue - persi stent - will check labs and treat as indicated - pt is to notify clinic if symptoms do not improve, if they worsen, or with any changes, questions, or concerns. 09/09/2017 Appointment: Ruchi Agee WPtel: [facility] (30 min) Complex 09/09/2017 Patient Education: [...] at home. 08/17/2017 Appointment: Ale Carlos WPtel: [facility] (15 min) Moderate 08/17/2017 Patient Education: Patient [...] regular foods. 07/20/2017 Appointment: Ale Carlos WPtel: [facility] [place] (30 min) Complex 07/20/2017 Appointment: Ale Carlos WPtel: [address] [place] [address] [place] (30 min) Complex 07/20/2017 Patient Education: Patient Medication Summary Completed 07/20/2017 Appointment: Ale Carlos WPtel: [facility] [place] (30 min) Complex 07/19/2017 Appointment: Ale Carlos WPtel: [facility] [place] (15 min) Moderate 07/18/2017 Visit Plan: [...] this regimen. 07/01/2017 Appointment: Ruchi Agee WPtel: [facility] [place] (30 min) Complex 07/01/2017 Appointment: Ruchi Agee WPtel: [facility] [place] (30 min) Complex 07/01/2017 Patient [...] current management. 06/21/2017 Appointment: Ale Carlos WPtel: [facility] [place] (30 min) Complex 06/21/2017 Patient Education: [...] at home. 03/21/2017 Appointment: Ale Carlos WPtel: [phone] [facility] (30 min) Complex 03/21/2017 Patient Education: Patient [...] allergy spray. 03/08/2017 Appointment: Nelly Keen WPtel: [phone] [phone] (30 min) Complex 03/08/2017 Patient Education: [...] shot 01/25/2017 Appointment: Ale Carlos WPtel: [phone] [facility] (30 min) Complex 01/25/2017 Patient Education: Patient [...] not improving. 12/20/2016 Appointment: Ale Carlos WPtel: [facility] (30 min) Complex 12/20/2016 Patient Education: Patient Medication Summary Completed 12/20/2016 Patient Education: Hypertension Completed 12/20/2016 Appointment: Ruchi Agee WPtel: [facility] [place] [address] - Annual Wellness Visit 12/03/2016 Visit Plan: [...] acutely worsen. 11/25/2016 Appointment: Ale Carlos WPtel: [facility] (15 min) Moderate 11/25/2016 Patient Education: [...] have thrush. 11/18/2016 Appointment: Ale Carlos WPtel: [facility] (15 min) Moderate 11/18/2016 Patient Education: Patient [...] and namenda. labs to be done from [facility] 08/23/2016 Appointment: Ale Carlos [facility]Ptel: [phone] (30 min) Complex 08/23/2016 Patient Education: Patient Medication Summary Completed 08/23/2016 Patient Education: Hypertension Completed 08/23/2016 Visit Plan: Hypertension - well evan martines - continue with current medications, continue with no added salt diet. Pt has been encouraged to exercise daily. The pt has been advised to call the office if there are any acute concerns about change in blood pressure readings at home. 04/26/2016 Appointment: Ale Carlos WPtel: [facility] (30 min) Complex 04/26/2016 Patient Education: Patient Medication Summary Completed 04/26/2016 Visit Plan: Joint effusion - recomm ended drainage and referral to orthopedic surgeon for surgical debridement of bursa 02/17/2016 Appointment: Ale Carlos WPtel: [facility] (30 min) Complex 02/17/2016 Patient Education: Patient Medication Summary Completed 02/17/2016 Visit Plan: Bursitis-right elbow-dr healy today in the office- increase anti inflammatories for the next 5 days as directed-call if symptoms do not resolve, swelling returns or new symptoms develop-patient verbalized understanding of plan. 02/09/2016 Appointment: Nelly Keen WPtel: [phone] [place] (30 min) Complex 02/09/2016 Patient [...] of plan. 02/03/2016 Appointment: Nelly Keen WPtel: [phone] [place] (30 min) Complex 02/03/2016 Patient Education: Patient Medication Summary Completed 02/03/2016 Patient Education: Patient Medication Summary Completed 01/30/2016 Care Plan: Metabolic Due on Pending 01/30/2016 Visit Plan: Abdominal pain - nausea - Pt to have IV fluids at hospital 01/26/2016 Appointment: Ale Carlos WPtel: [phone] (30 min) Complex 01/26/2016 Patient Education: Patient [...] spray. 01/21/2016 Appointment: Nelly Keen WPtel: [phone] (30 min) Complex 01/21/2016 Patient Education: [...] treatment. 09/02/2015 Appointment: Ale Carlos WPtel: [phone] (15 min) Moderate 09/02/2015 Patient Education: Patient Medication Summary Completed 09/02/2015 Patient Education: Hypertension Completed 09/02/2015 Visit Plan: Hypertension - well con gómezlled [...] today 05/06/2015 Appointment: Ale Carlos WPtel: [phone] (15 min) Moderate 05/06/2015 Patient Education: Patient Medication Summary Completed 05/06/2015 Patient Education: Hypertension Completed 05/06/2015 Care Plan: COMPLETE CBC AUTOMATED LOINC : 76659-6 Ordered 05/06/2015 Visit Plan: Hypertension - well evan martines [...] medications. 03/05/2015 Appointment: Ale Carlos WPtel: [phone] (30 min) Complex 03/05/2015 Patient Education: [...] improved. 12/04/2014 Appointment: Ale Carlos WPtel: [facility] Follow up 12/04/2014 Patient Education: Patient [...] Plan: CT ABD & PELV 1/> REGNS INC : 30670-0 Ordered 09/24/2014 Visit Plan: Hypertension - well [...] THAT HE SHOULD NOT BE DRIVING TO [place] 07/26/2014 Appointment: Sick 07/26/2014 Appointment: Sick 07/26/2014 [...] medication list. 07/10/2014 Appointment: Ale Carlos WPtel: [address] [place] [address] Follow up 07/10/2014 Patient Education: Patient Medication Summary Completed 07/10/2014 Patient Education: Hypertension Completed 07/10/2014 Appointment: Ale Carlos WPtel: [facility] [place] Follow up 06/20/2014 Appointment: Ale Carlos WPtel: [address] [place] [address] [place] Follow up 06/10/2014 Visit Plan: Anxiety [...] in blood pressure readings at home. Urinary dyikveozj-IBW-lfwmoo flomax to bedtime Dizziness-stop hydrocodone and ativan [...] WEEKS 05/29/2014 Appointment: Ale Carlos WPtel: [phone] [place] Sick 05/29/2014 Patient Education: Patient Medication Summary Completed 05/29/2014 Patient Education: Hypertension Completed 05/29/2014 Appointment: Ale Carlos WPtel: [phone] [place] Lab Draw 05/23/2014 Patient Education: Patient Medication Summary Completed 05/23/2014 Visit Plan: Pneumonia - Pt has been diagnosed with pneumonia by physical exam. A chest xray has been ordered as have antibiotics. The pt is aware of the diagnosis and the need for acute treatment of this illness. A htcueaoz-warre-vyakvxp flonase nasal spray Hyponatremia-increase gatorade as directed 05/20/2014 Visit Plan: Pneumonia - Pt has been diagnosed with pneumonia by physical exam. A chest xray has been ordered as have antibiotics. The pt is aware of the diagnosis and the need for acute treatment of this illness. A yafdewug-mwmeh-purtnel flonase nasal spray Hyponatremia-increase gatorade as directed ADDENDUM: RECOMMEND PATIENT START ON ALBUTEROL NEBULIZER TREATMENTS EVERY 4 HOURS NEEDED FOR SHORTNESS OF BREATH/WHEEZING. DX SECONDARY PNEUMONIA FROM INFLUENZA, COUGH 05/20/2014 Patient Education: Patient Medication Summary Completed 05/20/2014 Appointment: Ale Carlos WPtel: [phone] [facility] [place] Injection 03/26/2014 Patient Education: Patient Medication [...] Merlos. 03/25/2014 Appointment: Ale Carlos WPtel: [phone] [facility] Follow up 03/25/2014 Patient Education: Patient Medication Summary Completed 03/25/2014 Patient Education: Hypertension Completed 03/25/2014 Visit Plan: Tisvx-oashnewbo-flpjwbj laryngeal reflux-RX for protonix (patient is on [...] home. 12/24/2013 Appointment: Ale Carlos WPtel: [phone] [facility] Follow up 12/24/2013 Patient Education: Patient Medication [...] portion size. 11/20/2013 Appointment: Ale Carlos WPtel: [facility] Follow up 11/20/2013 Patient Education: Patient Medication Summary Completed 11/20/2013 Appointment: Ale Carlos WPtel: [address] [place], [place] [phone] Follow up 11/06/2013 Visit Plan: Weight loss-increase po rtions-add snacks in the morning and afternoon-follow up in 3 weeks for weight check Low sodium-check labs-restart gatorade Rjgceyi-qenibo-fvfhx labs and UA 10/30/2013 Patient Education: Patient Medication Summary Completed 10/30/2013 Appointment: Ale Carlos WPtel: [address] [place], [place] [address] Follow up 10/16/2013 Visit Plan: Sinusitis - [...] Merlos. 06/18/2013 Appointment: Ale Carlos WPtel: [phone] [facility] Follow up 06/18/2013 Patient Education: Patient Medication [...] concerns. 04/04/2013 Appointment: Ale Carlos WPtel: [phone] [facility] Follow up 04/04/2013 Patient Education: Patient Medication [...] report. 02/19/2013 Appointment: Ale [facility]: [phone] Follow up 02/19/2013 Patient Education: Patient Medication [...] loss. 10/16/2012 Appointment: Ale [facility]Ptel: [facility] Follow up 10/16/2012 Patient Education: Patient Medication [...] 06/19/2012 Appointment: [phone] [place] Follow up 06/19/2012 Patient Education: Patient [...] bentyl. 03/20/2012 Appointment: [phone] [place] [place] Follow up 03/20/2012 Patient Education: Patient Medication Summary Completed 03/20/2012 Patient Education: High Blood Pressure: Essential Hypertension Completed 03/20/2012 Appointment: [phone] [place] [place] Follow up 02/22/2012 Visit Plan: Hypertension [...] needed. 01/24/2012 Appointment: [phone] [place] [place] Follow up 01/24/2012 Patient Education: Patient [...] have the biopsy until okayed by his diet assistant.. I anticipate it will be at least 4-6 months before he can be off of the plavix and aspirin for additonal procedures unless it is of extreme urgency. 12/20/2011 Appointment: Ale Carlos WPtel: [address] [place], [place] [id number] Follow up 12/20/2011 Patient Education: Patient Medication Summary Completed 12/20/2011 Patient Education: High Blood Pressure: Essential Hypertension Completed 12/20/2011 Appointment: Ale Carlos WPtel: [id number] Other 12/13/2011 Visit Plan: Pain in groin post hear t cath with increased discomfort and increased size - will order an ultrasound for today. 12/09/2011 Appointment: Ale Carlos WPtel: [facility] Other 12/09/2011 Patient Education: Patient Medication Summary [...] either medication. 08/25/2011 Appointment: Ale Carlos WPtel: [facility] Other 08/25/2011 Patient Education: Patient Medication Summary [...] low doses. 06/23/2011 Appointment: Ale Carlos WPtel: [address] [place] [address] Other 06/23/2011 Patient Education: Patient Medication Summary Completed 06/23/2011 Patient Education: High Blood Pressure: Essential Hypertension Completed 06/23/2011 Appointment: Ale Carlos WPtel: [address] [place] [address] Other 04/26/2011 Visit Plan: Hypertension - well [...] seeds, etc. 04/19/2011 Appointment: Ale Carlos WPtel: [address] [place] [address] Other 04/19/2011 Patient Education: Patient Medication Summary Completed 04/19/2011 Patient Education: High Blood Pressure: Essential Hypertension Completed 04/19/2011 Patient Education: Diverticulosis Diet Completed 04/19/2011 [facility]ment[phone] [facility] 03/23/2011 Patient Education: Patient Medication [...] arise. 03/08/2011 Appointment: Ale Carlos WPtel: [phone] [facility] Other 03/08/2011 Patient Education: Patient Medication Summary [...] a day. 03/01/2011 Appointment: Ale Carlos WPtel: [phone] [facility] Other 03/01/2011 Patient Education: Patient Medication Summary Completed 03/01/2011 Patient Education: High Blood Pressure: Essential Hypertension Completed 03/01/2011 Appointment: Nelly Keen WPtel: [phone] [phone] [place] Injection 02/25/2011 Patient Education: Patient Medication Summary Completed 02/25/2011 Appointment: Ale Carlos WPtel: [phone] [id number] [place] Injection 02/16/2011 Patient Education: Patient Medication Summary Completed 02/16/2011 Appointment: Ale Carlos WPtel: [phone] [id number] [place] Injection 02/09/2011 Patient Education: Patient Medication Summary Completed 02/09/2011 Appointment: Ale Carlos WPtel: [facility] Follow up 02/02/2011 Visit Plan: Hydrocele and [...] Kenji Dash in [place]. Upon our conversation [id number], Kenji vocalized concerns for his Dad's memory. He stated that he has noticed his father not being as quick in his cognitive functioning, he has noticed some concerns with driving as well. He states that he will discuss these concerns with his parents and other siblings. 02/01/2011 Appointment: [phone] [place] [place] Other 02/01/2011 Patient Education: Patient Medication Summary [...] as needed. 01/27/2011 Appointment: Ale Carlos WPtel: [phone] [facility] [place] New Patient 01/27/2011 Patient Education: Patient Medication Summary Completed 01/27/2011 Visit Plan: Bruising/hematoma left arm-discussed natural and expected course of this diagnosis and to alert me if symptoms do not follow expected course or if any worse, Continue with ice/heat as needed for disc omfort. Call for any concerns. 01/26/2011 Appointment: Nelly Keen WPtel: [phone] [place] Other 01/26/2011 Patient Education: Patient [...] full course. 01/15/2011 Appointment: Nelly Keen WPtel: [phone] [place] Other 01/15/2011 Patient Education: Patient Medication [...] 01/06/2011 Appointment: [phone] [place] [place] Patient 01/06/2011 Patient Education: Patient Medication Summary Completed 01/06/2011 Referral: External, Ordering Provider Referral Relationship Instructions Comment . Irritable bowel sy ndrome with constipation [...] new treatments which can avoid rectal irritation. INCREASE GATORADE TO THREE TIMES PER DAY X 2 DAYS THEN TWICE DAILY stop doxycycline START CEFDINIR AND ZITHROMAX . Pneumonia - Pt has been diagnosed with pneumonia by physical exam. A chest xray has been ordered as have antibiotics. The pt is aware of the diagnosis and the need for acute treatment of this illness. Tztbwjydp-cngbw-ydxjjrn flonase nasal spray Hyponatremia-increase gatorade as directed . Pneumonia - Pt has been diagnosed with pneumonia by physical exam. A chest xray has been ordered as have antibiotics. The pt is aware of the diagnosis and the need for acute treatment of this illness. Jewvdbunx-rffga-rguuzje flonase nasal spray Hyponatremia-increase gatorade as directed [...] a prescriptio n of generic zyrtec to [facility] - if it is expensive get [...] have the biopsy until okayed by his diet assistant.. I anticipate it will be at least 4-6 months before he can be off of the plavix and aspirin for additonal procedures unless it is of extreme urgency. CHECK LABS-CBC, CMP, UA WITH C&S IF INDICATED . Weight loss-increase portions-add snac ks in the morning and afternoon-follow up in 3 weeks for weight check Low sodium-check labs-restart gatorade Pkkvhle-ptacnc-rojvm labs and UA . Joint effusion - r ecommended drainage and referral to orthopedic surgeon for surgical debridement of bursa . Constipation - unc ontrolled - pt [...] symptoms are not improving. . Hypertension - wel l controlled - [...] bentyl up to two times a day. stop the multivitami n stop the calcium [...] be helping his symptoms. He is reporting stave jointer pain - i suspect that some of this is due to his eating early at night then taking at least 10 pills at bedtime without any food in his stomach, then excessive acid production with the pill burden causing him to wake up with pain in the stave jointer hours. I have recommended that he is [...] to call if symptoms are not improving. Nasal spray- use twi ce daily, one [...] spray in the nasal steroid allergy spray. INCREASE GATORADE TO TWICE DAILY . Abdominal pain-patient reports worseni ng symptoms-schedule CT abdomen/pelvis to evaluate for acute abnormality Low sodium-increase gatorade to twice HTN-well controlled-no change in treatment INCREASE GATORADE TO TWICE DAILY . Abdominal pain-patient reports worseni ng symptoms-schedule CT abdomen/pelvis to evaluate for acute abnormality Low sodium-increase gatorade to twice HTN-well controlled-no change in treatment . Bruising/hematoma left arm-discussed natural and expected [...] -call with any questions or concerns . Wbkhb-gudwgptdj-wq spect laryngeal reflux-RX for protonix (patient is on plavix) and follow up in 1 month. Call if symptoms do not improve or if any worse Allergies-improved on flonase-continue as directed and call if symptoms return. . Abdominal pain - n ausea - [...] the lactose free diet. get Aspercreme from [employer] for your upper neck/upper back. lactaid pills - take before you drink milk or eat cheese or ice cream or yogurt use gas-ex one pill three times daily . Neck and upper back pain and gait unst eadiness - referral to [facility] for upper and low back pain and left arm pain and have gait eval. get Aspercreme from [employer] for your upper neck/upper back. Abdominal upset/cramping [...] IN THE EVENING OF 01/15/11 Appointment [address] [place] [address] Carlos. Recommend Lactobacillus 1 orally [...] Kenji Dash in [place]. Upon our conversation [id number], Kenji vocalized concerns for his Dad's memory. He stated that he has noticed his father not being as quick in his cognitive functioning, he has noticed some concerns with driving as well. He states that he will discuss these concerns with his parents and other siblings. on the Requip - decr ease the [...] and namenda. labs to be done from [facility] stop losartan - [facility] blood pressure and heart rate twice daily x 1 week - bring by the office for review - if elevated - we will increase the lisinopril to 40mg daily. . Hypertension - well controlled - jamai nue with current medications except for stopping [...] spray -it is over the counter . Rpkolpqiwqaa-orylwxn-njqfbbi trulance 3mg daily Dry mouth-biotene mouth spray [...] THAT HE [facility] BE [facility]ING [facility] . Ethmoid sinusitis - check sinus xray [...] in blood pressure readings at home. Urinary lbvjzazdd-OAN-blfhaj flomax to bedtime Dizziness-stop hydrocodone and ativan [...] MIKAELA if symptoms of irritable colon return. Start on Reglan at a 1/2 tablet [...] Advance your diet back to regular foods. Pt is to try 1/2 pil l [...] then trial off of the bentyl. stop lisinopril and start on losartan 50mg [...]
--- OUTSIDE RECORDS SUMMARY | 2019-07-16 08:15 | XMS REPORT | CCD ---
Author Author Kenneth Carlos Organization Ale Carlos MD, [facility] Address [address] [place] [address] Phone Care Team Providers Care Councilor Name Role Phone Ale Carlos PP Unavailable CCM Unavailable Summary Purpose Interface Exchange Insurance Providers Payer name Policy type / Coverage type Covered alliance party ID Effective Begin Date Effective End Date WPS Medicare Part B Medicare Part B [id number] Unknown Unknown [facility] icare Part B [id number] Unknown Unk nown Family history Runs in the family Diagnosis Age At Onset No Family Disease Entered N/A Mother Diagnosis Age At Onset No Family Disease Entered N/A Father Diagnosis Age At Onset Heart disease Unknown Social History Social History Element Codes Description Effective Dates Number of children Unknown 3 ([place], [place], [place]) 10/14/19 18 Living arrangements Unknown House 01/11/2011 Number of adults in household Unknown 2 01/11/2011 Education level Unknown Post-Graduate PHD in chemistry 01/11/2011 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 Unknown Has never used illegal drugs 011 Allergies, Adverse Reactions, Alerts Substance Reaction Codes Entered Date Inactivated Date Status * NO KNOWN FOOD NAYE RGIES Unknown 04/19/2011 No Inactive Date Active Toradol RxNorm: 36915 03/05/2011 No Inactive Date Active Lisinopril cough, [...] Date Stop Date Sta tus Fill Instructions triamterene 37.5 mg- hydrochlorothiazide 25 mg tablet RxNorm: 410811 1 Tablet(s) PO daily 05/18/2018 12/13/2018 Active cetirizine 10 mg tablet RxNorm: 5862795 TABLET(S) 1 TABLET(S) PO DAILY TO TAKE I NSTEAD OF THE CLARITIN 03/13/2018 02/05/2019 Active amlodipine 10 mg tablet RxNorm: 786567 TAKE 1 TABLET BY MOUTH EVERY DAY 03/09/2018 10/04/2018 Ac tive fluticasone 50 mcg/a ctuation nasal spray,suspension RxNorm: 9278587 1 [place] NASAL BID 02/08/2018 No Stop Date Active fluticasone 50 mcg/a ctuation nasal spray,suspension RxNorm: 3366952 1 [place] NASAL BID 02/08/2018 02/07/2018 Inactive Trulance 3 mg tablet RxNorm: 4007111 1 Tablet(s) PO QAM 01/19/2018 07/17/2018 Active cefdinir 300 mg capsule RxNorm: 794101 1 Capsule(s) PO BID 12/28/2017 01/03/2018 Inactive cefdinir 300 mg capsule RxNorm: 004720 1 Capsule(s) PO BID 12/28/2017 12/27/2017 Inactive clopidogrel 75 mg ta blet RxNorm: 222978 TAKE 1 TABLET BY MOUT H EVERY DAY 12/26/2017 06/23/2018 Ac tive Namenda 10 mg tablet RxNorm: 511310 Tablet(s) TAKE 1 TABLET BY MOUTH TWICE D AILY. 12/15/2017 No Stop Date Active Robinul 1 mg tablet RxNorm: 962757 1/2 Tablet(s) PO AC & HS 12/12/2017 12/14/2017 Inactive Robinul 1 mg tablet RxNorm: 739048 1/2 Tablet(s) PO AC & HS 12/12/2017 12/11/2017 Inactive donepezil 10 mg tablet RxNorm: 555326 1 TABLET(S) PO DAILY TAKE 1 TABLET BY MO UTH ONCE DAILY 12/08/2017 12/11/2017 Inactive Patient requests 90 days supply lisinopril 20 mg tablet RxNorm: 654833 TAKE 1 TABLET DAILY 12/05/2017 01/11/2018 Inactive Cymbalta 30 mg capsu le,delayed release RxNorm: 264793 1 Capsule(s) PO daily 12/05/2017 12/04/2017 In active Cymbalta 30 mg capsu le,delayed release RxNorm: 060246 1 Capsule(s) PO daily 12/05/2017 12/05/2017 In active Trulance 3 mg tablet RxNorm: 6863825 1 Tablet(s) PO daily 11/14/2017 12/13/2017 Inactive Linzess 145 mcg capsule RxNorm: 7812443 1 Capsule(s) PO daily 10/28/2017 12/14/2017 Inactive Zantac 150 mg tablet RxNorm: 579093 1 Tablet(s) PO QAM 10/13/2017 01/04/2018 Inactive mirtazapine 15 mg ta blet RxNorm: 535476 TAKE ONE TABLET BY MO UTH EVERY DAY 09/29/2017 09/23/2018 Ac tive Mobic 15 mg tablet RxNorm: 307400 1/2 TABLET(S) DAILY 09/26/2017 12/19/2017 Inactive lisinopril 20 mg tablet RxNorm: 499781 1/2 Tablet(s) daily 09/13/2017 01/12/2018 Inactive amlodipine 10 mg tablet RxNorm: 893454 TAKE 1 TABLET BY MOUTH EVERY DAY 09/09/2017 03/07/2018 In active Reglan 5 mg tablet RxNorm: 474869 1/2 Tablet(s) PO TID may increase up to a full pill three times daily as needed for poor GI motility 07/20/2017 09/17/2017 Inactive Protonix 40 mg table t,delayed release RxNorm: 389105 1 Tablet(s) PO daily 07/04/2017 01/29/2018 In active clopidogrel 75 mg ta blet RxNorm: 363276 TAKE 1 TABLET BY MOUT H EVERY DAY 06/20/2017 12/16/2017 In active cetirizine 10 mg tablet RxNorm: 7100526 TABLET(S) 1 TABLET(S) PO DAILY TO TAKE I NSTEAD OF THE CLARITIN 06/06/2017 03/12/2018 Inactive lisinopril 20 mg tablet RxNorm: 255546 TAKE 1 TABLET DAILY 05/30/2017 09/12/2017 Inactive Mobic 15 mg tablet RxNorm: 313784 1/2 TABLET(S) DAILY 03/21/2017 09/16/2017 Inactive donepezil 10 mg tablet RxNorm: 510165 1 Tablet(s) PO daily TAKE 1 TABLET BY MO UTH ONCE DAILY 02/28/2017 11/24/2017 Inactive Patient requests 90 days supply Requip 0.25 mg tablet RxNorm: 757112 1 TABLET(S) PO BID 01/24/2017 01/04/2018 Inactive Patient requests 90 days supply clopidogrel 75 mg ta blet RxNorm: 917401 TAKE 1 TABLET BY MOUT H EVERY DAY 12/23/2016 06/19/2017 In active lisinopril 20 mg tablet RxNorm: 220941 TAKE 1 TABLET DAILY 11/26/2016 05/24/2017 Inactive Kenalog 40 mg/mL hugo pension for injection RxNorm: 3755644 Milliliter(s) Inj 11/25/2016 11/25/2016 In active cefdinir 300 mg capsule RxNorm: 416176 1 Capsule(s) PO BID 11/23/2016 11/27/2016 Inactive cefdinir 300 mg capsule RxNorm: 881764 1 Capsule(s) PO BID 11/23/2016 11/22/2016 Inactive nystatin 100,000 uni t/mL oral suspension RxNorm: 003518 5 Milliliter(s) PO QI D 11/18/2016 11/27/2016 In active azithromycin 250 mg tablet RxNorm: 089880 1 Tablet(s) PO UD 2 p ills on day #1 then one pill daily x 4 more days 11/18/2016 11/22/2016 Inactive Mobic 15 mg tablet RxNorm: 618655 1/2 TABLET(S) DAILY 10/28/2016 03/20/2017 Inactive citalopram 10 mg tablet RxNorm: 326165 TAKE 1 TABLET BY MOUTH EVERY DAY 10/07/2016 03/05/2017 In active Patient requests 90 days supply mirtazapine 15 mg ta blet RxNorm: 034870 TAKE ONE TABLET BY MO UTH EVERY DAY 10/06/2016 09/28/2017 In active mirtazapine 15 mg ta blet RxNorm: 345179 TAKE ONE TABLET BY MO UTH EVERY DAY 10/05/2016 10/05/2016 In active Patient requests 90 days supply amlodipine 10 mg tablet RxNorm: 460885 TAKE 1 TABLET BY MOUTH EVERY DAY 09/14/2016 01/24/2017 In active clopidogrel 75 mg ta blet RxNorm: 396965 TAKE 1 TABLET BY MOUT H EVERY DAY 06/28/2016 12/22/2016 In active lisinopril 20 mg tablet RxNorm: 307766 TAKE 1 TABLET DAILY 05/31/2016 11/25/2016 Inactive donepezil 10 mg tablet RxNorm: 614299 TAKE 1 TABLET BY MOUTH ONCE DAILY 05/11/2016 11/06/2016 In active donepezil 10 mg tablet RxNorm: 093069 TAKE 1 TABLET BY MOUTH ONCE DAILY 04/26/2016 02/28/2017 In active Mobic 15 mg tablet RxNorm: 374361 1/2 Tablet(s) daily 04/19/2016 10/15/2016 Inactive citalopram 10 mg tablet RxNorm: 065703 TAKE 1 TABLET BY MOUTH EVERY DAY 04/06/2016 04/25/2016 In active cetirizine 10 mg tablet RxNorm: 1106356 Tablet(s) 1 TABLET(S) PO DAILY TO TAKE I NSTEAD OF THE CLARITIN 03/30/2016 02/22/2017 Inactive amlodipine 10 mg tablet RxNorm: 863402 TAKE 1 TABLET BY MOUTH EVERY DAY 03/08/2016 01/24/2017 In active amlodipine 10 mg tablet RxNorm: 435842 1 Tablet(s) PO daily TAKE 1 TABLET BY MO UTH ONCE DAILY 03/03/2016 03/07/2016 Inactive Requip 0.25 mg tablet RxNorm: 749998 1 Tablet(s) PO BID 03/03/2016 09/13/2016 Inactive Mobic 15 mg tablet RxNorm: 132763 1 Tablet(s) daily not refilled on a 02/23/2016 04/18/2016 In active cetirizine 10 mg tablet RxNorm: 8793203 1 TABLET(S) PO DAILY TO TAKE INSTEAD OF THE CLARITIN 02/19/2016 03/19/2016 Inactive lisinopril 20 mg tablet RxNorm: 753408 TAKE 1 TABLET DAILY 02/18/2016 05/17/2016 Inactive Namenda 10 mg tablet RxNorm: 024554 Tablet(s) TAKE 1 TABLET BY MOUTH TWICE D AILY. 02/17/2016 12/14/2017 Inactive lisinopril 20 mg tablet RxNorm: 411134 TAKE 1 TABLET DAILY 01/23/2016 01/24/2017 Inactive cetirizine 10 mg tablet RxNorm: 2067403 1 Tablet(s) PO daily to take instead of the claritin 01/21/2016 02/18/2016 Inactive amlodipine 10 mg tablet RxNorm: 380261 1 Tablet(s) PO daily TAKE 1 TABLET BY MO UTH ONCE DAILY 12/02/2015 03/02/2016 Inactive clopidogrel 75 mg ta blet RxNorm: 975208 TAKE 1 TABLET BY MOUT H EVERY DAY 11/25/2015 05/22/2016 In active Mobic 15 mg tablet RxNorm: 985333 TAKE(1/2) TABLET DAILY. 11/17/2015 02/22/2016 Inactive lisinopril 20 mg tablet RxNorm: 823301 TAKE 1 TABLET DAILY 11/17/2015 01/15/2016 Inactive Mobic 15 mg tablet RxNorm: 782211 1/2 Tablet(s) PO daily TAKE (1/2) TABLET DAILY. 11/12/2015 11/16/2015 Inactive citalopram 10 mg tablet RxNorm: 677713 TAKE 1 TABLET BY MOUTH EVERY DAY 10/27/2015 04/05/2016 In active Requip 0.25 mg tablet RxNorm: 465128 1 Tablet(s) PO BID 10/15/2015 02/11/2016 Inactive Requip 0.25 mg tablet RxNorm: 187252 1 Tablet(s) PO BID 10/15/2015 10/14/2015 Inactive mirtazapine 15 mg ta blet RxNorm: 123104 1 Tablet(s) PO daily 09/08/2015 10/01/2016 Inactive donepezil 10 mg tablet RxNorm: 823559 TAKE 1 TABLET DAILY 09/01/2015 04/25/2016 Inactive amlodipine 10 mg tablet RxNorm: 006244 1 Tablet(s) PO daily TAKE 1 TABLET BY MO UTH ONCE DAILY 08/18/2015 12/01/2015 Inactive clopidogrel 75 mg ta blet RxNorm: 937069 1 Tablet(s) PO daily TAKE 1 TABLET DAILY 05/20/2015 11/24/2015 In active Mobic 15 mg tablet RxNorm: 617489 Tablet(s) TAKE (1/2) TABLET DAILY. 04/23/2015 10/19/2015 In active lisinopril 20 mg tablet RxNorm: 381767 TAKE 1 TABLET DAILY 04/22/2015 11/16/2015 Inactive Mobic 15 mg tablet RxNorm: 660087 TAKE (1/2) TABLET DAILY. 04/22/2015 04/22/2015 Inactive sulfamethoxazole 400 mg-trimethoprim 80 mg tablet RxNorm: 645175 1/2 Tablet(s) PO nancy y 03/11/2015 04/09/2015 Inactive Vesicare 5 mg tablet RxNorm: 832820 1 Tablet(s) PO 03/11/2015 05/09/2015 Inactive Protonix 40 mg table t,delayed release RxNorm: 657758 1 Tablet(s) PO BID 03/05/2015 09/30/2015 In active ok to change from [address] Archana rivera clopidogrel 75 mg ta blet RxNorm: 273614 1 Tablet(s) PO daily TAKE 1 TABLET DAILY 02/20/2015 05/19/2015 In active Namenda 10 mg tablet RxNorm: 739983 Tablet(s) TAKE 1 TABLET BY MOUTH TWICE D AILY. 01/22/2015 02/16/2016 Inactive amlodipine 10 mg tablet RxNorm: 363644 TAKE 1 TABLET BY MOUTH ONCE DAILY 01/14/2015 08/17/2015 In active donepezil 10 mg tablet RxNorm: 168584 TAKE 1 TABLET DAILY 01/06/2015 08/31/2015 Inactive Levsin 0.125 mg tablet RxNorm: 7060446 1 Tablet(s) PO QID as needed FOR ABD REJI N 11/05/2014 12/03/2014 In active Mobic 15 mg tablet RxNorm: 745534 1/2 Tablet(s) daily TAKE (1/2) TABLET DA MOIZ. 10/01/2014 04/21/2015 Inactive ciprofloxacin 500 mg tablet RxNorm: 092782 1 Tablet(s) PO BID 09/27/2014 10/01/2014 Inactive Flagyl 500 mg tablet RxNorm: 470730 1 Tablet(s) PO TID 09/27/2014 10/03/2014 Inactive take probiotic BID donepezil 10 mg tablet RxNorm: 438006 1/2 Tablet(s) PO BID 09/24/2014 01/05/2015 Inactive lisinopril 20 mg tablet RxNorm: 884137 TAKE 1 TABLET DAILY 09/05/2014 04/21/2015 Inactive amlodipine 10 mg tablet RxNorm: 644249 1 Tablet(s) PO daily 09/02/2014 12/30/2014 Inactive mirtazapine 15 mg ta blet RxNorm: 278245 1 Tablet(s) PO daily 08/28/2014 09/07/2015 Inactive donepezil 10 mg tablet RxNorm: 987702 1 Tablet(s) PO daily 08/28/2014 09/23/2014 Inactive citalopram 10 mg tablet RxNorm: 832955 1 Tablet(s) PO daily 08/28/2014 03/25/2015 Inactive citalopram 10 mg tablet RxNorm: 367241 1 Tablet(s) PO daily 08/07/2014 08/27/2014 Inactive citalopram 10 mg tablet RxNorm: 063756 1 Tablet(s) PO daily 08/07/2014 08/06/2014 Inactive Flagyl 500 mg tablet RxNorm: 070889 1 Tablet(s) PO TID 08/02/2014 08/01/2014 Inactive take probiotic BID Flagyl 500 mg tablet RxNorm: 268579 1 Tablet(s) PO TID 08/02/2014 08/08/2014 Inactive take probiotic BID tamsulosin ER 0.4 mg capsule,extended release 24 hr RxNorm: 692887 1 Capsule(s) PO QHS 06/06/2014 03/10/2015 Inactive TAKE AT BEDTIME escitalopram 5 mg ta blet RxNorm: 832449 1 Tablet(s) PO QPM 06/06/2014 08/06/2014 Inactive doxycycline hyclate 100 mg tablet RxNorm: 886274 1 Tablet(s) PO BID 05/31/2014 05/30/2014 Inactive doxycycline hyclate 100 mg tablet RxNorm: 024255 1 Tablet(s) PO BID 05/31/2014 06/06/2014 Inactive please deliver if not picked by 3pm Aricept 5 mg tablet RxNorm: 381664 1 Tablet(s) PO BID 05/29/2014 08/27/2014 Inactive losartan 50 mg tablet RxNorm: 120279 1/2 Tablet(s) PO daily 05/29/2014 12/28/2015 Inactive clopidogrel 75 mg ta blet RxNorm: 547539 1 Tablet(s) PO daily 05/27/2014 05/26/2014 Inactive Mobic 15 mg tablet RxNorm: 696080 TAKE (1/2) TABLET DAILY. 05/27/2014 09/30/2014 Inactive clopidogrel 75 mg ta blet RxNorm: 657931 TAKE 1 TABLET DAILY 05/27/2014 02/19/2015 Inactive Mobic 15 mg tablet RxNorm: 213677 1/2 Tablet(s) PO daily TAKE (1/2) TABLET DAILY. 05/27/2014 05/26/2014 Inactive prednisone 20 mg tablet RxNorm: 946970 1 Tablet(s) PO BID 05/21/2014 05/25/2014 Inactive albuterol sulfate 2. 5 mg/0.5 mL solution for nebulization RxNorm: 694737 1 inhale INH Q4H as needed 05/21/2014 09/01/2015 Inactive prednisone 20 mg tablet RxNorm: 473837 1 Tablet(s) PO BID 05/21/2014 05/20/2014 Inactive cefdinir 300 mg capsule RxNorm: 656759 1 Capsule(s) PO BID 05/20/2014 05/26/2014 Inactive Zithromax Z-Dequan 250 mg tablet RxNorm: 864514 1 Tablet(s) PO UD 05/20/2014 05/24/2014 Inactive zpack lorazepam 0.5 mg tablet RxNorm: 764011 1/2 to 1 Tablet(s) PO Q8 PRN as needed 04/30/2014 06/05/2014 In active Namenda 10 mg tablet RxNorm: 913906 TAKE 1 TABLET BY MOUTH TWICE DAILY. 04/15/2014 01/21/2015 In active Namenda 10 mg tablet RxNorm: 429672 1 Tablet(s) PO BID 04/15/2014 04/14/2014 Inactive losartan 50 mg tablet RxNorm: 535315 1 Tablet(s) PO daily 03/25/2014 05/28/2014 Inactive Protonix 40 mg table t,delayed release RxNorm: 001632 1 Tablet(s) PO QPM 03/21/2014 06/18/2014 In active ok to change from [address] Archana rivera fluticasone 50 mcg/a ctuation nasal spray,suspension RxNorm: 760482 1 [place] NASAL BID 03/04/2014 09/29/2014 Inactive Protonix 20 mg table t,delayed release RxNorm: 980519 1 Tablet(s) PO QPM 02/08/2014 03/20/2014 In active fluticasone 50 mcg/a ctuation nasal spray,suspension RxNorm: 104793 1 [place] NASAL BID 01/30/2014 03/03/2014 Inactive fluticasone 50 mcg/a ctuation nasal spray,suspension RxNorm: 171423 1 [place] NASAL BID 12/24/2013 01/29/2014 Inactive fluticasone 50 mcg/a ctuation nasal spray,suspension RxNorm: 147409 1 [place] NASAL BID 11/20/2013 12/23/2013 Inactive doxycycline hyclate 100 mg capsule RxNorm: 0924132 1 Capsule(s) PO BID 10/08/2013 10/17/2013 In active doxycycline hyclate 100 mg capsule RxNorm: 0884397 capsule oral 10/08/2013 10/29/2013 Inactive fluticasone 50 mcg/a ctuation nasal spray,suspension RxNorm: 028095 spray,suspension nasl 10/08/2013 11/19/2013 Inactive fluticasone 50 mcg/a ctuation nasal spray,suspension RxNorm: 196781 1 [place] NASAL BID Nasal spray- use twice daily, one spray per nostril twice daily, after 30 minutes, rinse out nose with saline spray. 10/08/2013 10/29/2013 Inactive mirtazapine 7.5 mg t ablet RxNorm: 440106 1/2 Tablet(s) PO daily 08/30/2013 08/27/2014 Inactive lorazepam 0.5 mg tablet RxNorm: 592247 1/2 Tablet(s) PO Q8 PRN 08/21/2013 04/29/2014 Inactive Aricept 5 mg tablet RxNorm: 098957 Tablet(s) PO TAKE 1 TABLET DAILY 08/21/2013 05/28/2014 In active Plavix 75 mg tablet RxNorm: 659857 Tablet(s) PO TAKE 1 TABLET DAILY 05/24/2013 12/04/2014 In active clopidogrel 75 mg ta blet RxNorm: 116754 tablet oral 05/24/2013 05/26/2014 Inactive Plavix 75 mg tablet RxNorm: 196200 1 Tablet(s) PO daily 05/23/2013 05/23/2013 Inactive meloxicam 15 mg tablet RxNorm: 856388 tablet oral 04/26/2013 03/25/2014 Inactive Mobic 15 mg tablet RxNorm: 274193 Tablet(s) PO TAKE (1/2) TABLET DAILY. 04/26/2013 05/26/2014 In active Mobic 15 mg tablet RxNorm: 276822 1/2 Tablet(s) PO daily 04/25/2013 04/25/2013 Inactive lisinopril 20 mg tablet RxNorm: 892175 1 Tablet(s) PO 04/04/2013 03/24/2014 Inactive finasteride 5 mg tablet RxNorm: 779056 tablet oral 03/22/2013 09/01/2015 Inactive lisinopril 10 mg tablet RxNorm: 313854 1 Tablet(s) PO daily 02/14/2013 04/03/2013 Inactive donepezil 5 mg tablet RxNorm: 634028 tablet oral 02/07/2013 12/24/2013 Inactive Influenza Virus Vacc ine 0.5 mL RxNorm: IM 02/06/2013 02/06/2013 Inactive Aricept 5 mg tablet RxNorm: 467095 1 Tablet(s) PO daily 02/06/2013 08/04/2013 Inactive tamsulosin ER 0.4 mg capsule,extended release 24 hr RxNorm: 898782 capsule,extended release 24hr oral 12/21/2012 06/05/2014 Inactive Plavix 75 mg tablet RxNorm: 924392 1 Tablet(s) PO daily 12/05/2012 05/03/2013 Inactive lorazepam 0.5 mg tablet RxNorm: 734664 1/2 Tablet(s) PO Q8 PRN 11/14/2012 08/20/2013 Inactive lisinopril 10 mg tablet RxNorm: 068070 1 Tablet(s) PO daily 08/08/2012 02/03/2013 Inactive Aricept 5 mg tablet RxNorm: 482806 1 Tablet(s) PO daily 08/08/2012 02/03/2013 Inactive Plavix 75 mg tablet RxNorm: 365486 1 Tablet(s) PO daily 07/04/2012 11/30/2012 Inactive Mobic 15 mg tablet RxNorm: 512908 1/2 Tablet(s) PO daily 03/20/2012 04/13/2013 Inactive Namenda 10 mg tablet RxNorm: 475428 1 Tablet(s) PO BID 02/22/2012 04/11/2014 Inactive lorazepam 0.5 mg tablet RxNorm: 406345 1/2 Tablet(s) PO Q8 PRN 02/02/2012 11/13/2012 Inactive lisinopril 10 mg tablet RxNorm: 156235 1 Tablet(s) PO daily 01/24/2012 07/21/2012 Inactive lisinopril 10 mg tablet RxNorm: 766434 1/2 Tablet(s) PO daily 12/20/2011 01/23/2012 Inactive Aricept 5 mg tablet RxNorm: 263399 1 Tablet(s) PO daily 07/14/2011 08/06/2012 Inactive Mobic 15 mg tablet RxNorm: 109835 1 Tablet(s) PO daily 07/14/2011 03/19/2012 Inactive Bentyl 10 mg Cap RxNorm: 050001 1 Capsule(s) PO daily one pill daily and every 6 hours if needed for bowel spasms. 06/23/2011 03/20/2012 Inactive amlodipine 5 mg Tab RxNorm: 359928 2 Tablet(s) PO daily 03/08/2011 12/08/2011 Inactive ZOSTAVAX 19,400 unit Sub-Q Soln RxNorm: 6756830 SQ 02/2502/25/2011 Inactive Pneumovax 23 25 mcg/ 0.5 mL Injection RxNorm: 965429 Milliliter(s) Inj 02/16/2011 02/16/2011 In active Influenza Virus Vacc ine 0.5 mL RxNorm: IM 02/09/2011 02/09/2011 Inactive Namenda 10 mg tablet RxNorm: 855289 1 Tablet(s) PO BID 02/01/2011 02/21/2012 Inactive dicyclomine 10 mg ca psule RxNorm: 196086 capsule oral 01/20/2011 10/29/2013 Inactive Namenda 5 mg tablet RxNorm: 096136 tablet oral 01/20/2011 12/24/2013 Inactive dicyclomine 20 mg ta blet RxNorm: 639555 tablet oral 01/15/2011 10/29/2013 Inactive Flagyl 500 mg Tab RxNorm: 649973 1 Tablet(s) PO TID 01/07/2011 01/06/2011 Inactive Cipro 500 mg Tab RxNorm: 689159 1 Tablet(s) PO BID 01/07/2011 06/23/2011 Inactive Cipro 500 mg Tab RxNorm: 232474 1 Tablet(s) PO BID 01/07/2011 01/06/2011 Inactive Flagyl 500 mg Tab RxNorm: 774809 1 Tablet(s) PO TID 01/07/2011 06/23/2011 Inactive metronidazole 500 mg tablet RxNorm: 160542 tablet oral 01/07/2011 12/24/2013 Inactive sulfamethoxazole 400 mg-trimethoprim 80 mg tablet RxNorm: 491561 tablet oral 12/24/2010 03/10/2015 In active mirtazapine 15 mg ta blet RxNorm: 356141 tablet oral 11/14/2010 12/24/2013 Inactive lisinopril 10 mg tablet RxNorm: 841059 tablet oral 11/14/2010 12/24/2013 Inactive doxycycline hyclate 100 mg tablet RxNorm: 149757 tablet oral 11/04/2010 12/24/2013 Inactive diphenoxylate-atropi ne 2.5 mg-0.025 mg tablet RxNorm: 9720919 tablet oral 11/03/2010 10/29/2013 In active ciprofloxacin 500 mg tablet RxNorm: 426257 tablet oral 11/01/2010 10/29/2013 Inactive Miralax 17 gram/dose oral powder RxNorm: 759641 17 Gram(s) PO daily No Start Date Active ranitidine 150 mg ta blet RxNorm: 628280 1 Tablet(s) PO daily No Start Date Active alprazolam 0.25 mg t ablet RxNorm: 133480 1 Tablet(s) PO BID PRN No Start Date Active simvastatin 20 mg ta blet RxNorm: 311163 1 Tablet(s) PO daily No Start Date Active Vesicare 5 mg tablet RxNorm: 990063 1 Tablet(s) PO daily No Start Date Active bicalutamide 50 mg t ablet RxNorm: 553056 1 Tablet(s) PO daily No Start Date Active Phenergan 6.25 mg/5 mL syrup RxNorm: 706451 5-10 Milliliter(s) PO QID as needed No Start Date Active sulfamethoxazole 500 mg Tab RxNorm: 081786 1/2 Tablet(s) PO daily No Start Date 12/24/2013 Inactive Plavix 75 mg Tab RxNorm: 376587 1 Tablet(s) PO daily No Start Date 01/26/2011 Inactive aspirin 81 mg Cap, D elayed Release RxNorm: 217461 1 Capsule(s) PO daily No Start Date 01/04/2018 Inactive Bentyl 10 mg capsule RxNorm: 169368 1 Capsule(s) PO QID as needed per dr. tylor pereira No Start Date 01/04/2018 Inactive famotidine 20 mg tablet RxNorm: 823127 1 Tablet(s) PO BID prescribed in ER No Start Date 10/13/2017 Inactive hydrocodone 5 mg-alexey taminophen 325 mg tablet RxNorm: 977451 1 Tablet(s) PO Q6 as needed No Start Date 06/05/2014 Inactive Proscar 5 mg Tab RxNorm: 418012 1 Tablet(s) PO daily No Start Date 09/01/2015 Inactive Plavix 75 mg tablet RxNorm: 397519 1 Tablet(s) PO daily No Start Date 07/03/2012 Inactive albuterol sulfate 2. 5 mg/0.5 mL solution for nebulization RxNorm: 022301 1 inhale INH Q4H as needed No Start Date 05/20/2014 Inactive metoclopramide 5 mg tablet RxNorm: 220214 1 Tablet(s) PO AC & H S prescribed in ER No Start Date 01/04/2018 Inactive amlodipine 5 mg Tab RxNorm: 517311 1 Tablet(s) PO daily No Start Date 03/07/2011 Inactive Namenda 5 mg Tab RxNorm: 403962 1 Tablet(s) PO daily No Start Date 06/23/2011 Inactive Zyrtec 10 mg tablet RxNorm: 9422807 1 Tablet(s) PO daily No Start Date 01/04/2018 Inactive Allergy Relief (ceti rizine) oral RxNorm: 530470 oral No S tart Date 12/19/2016 Inactive fluocinonide 0.05 % Ointment RxNorm: 602353 1 TOP BID PRN No Start Date 12/24/2013 Inactive amlodipine 5 mg tablet RxNorm: 378993 1 Tablet(s) PO daily No Start Date 09/01/2014 Inactive lisinopril Oral RxNorm: Oral No Start Date 12/08/2011 Inactive simvastatin 20 mg Tab RxNorm: 386883 1 Tablet(s) PO daily No Start Date 06/06/2014 Inactive Bentyl 20 mg Tab RxNorm: 074347 1 Tablet(s) PO Q6 PRN No Start Date 06/23/[address] Quintero Bentyl 10 mg Cap RxNorm: 243544 1 Capsule(s) PO BID No Start Date 06/22/2011 Inactive fluticasone 50 mcg/a ctuation nasal spray,suspension RxNorm: 5296822 1 [place] NASAL BID No Start Date 02/07/2018 Inactive Plavix 75 mg Tab RxNorm: 943633 1 Tablet(s) PO every other day No Start Date 08/24/2011 Inactive lorazepam 0.5 mg tablet RxNorm: 366560 1/2 Tablet(s) PO Q8 PRN No Start Date 02/01/2012 Inactive lisinopril 10 mg tablet RxNorm: 237291 1 Tablet(s) PO daily No Start Date 12/19/2011 Inactive Trulance 3 mg tablet RxNorm: 7576084 1 Tablet(s) PO QAM No Start Date 01/18/2018 Inactive Flomax 0.4 mg 24 hr Cap RxNorm: 308613 1 Capsule(s) PO daily No Start Date 05/28/2014 Inactive Aricept 5 mg Tab RxNorm: 985932 1 Tablet(s) PO daily No Start Date 07/13/2011 Inactive Vitamin D 1,000 unit Tab RxNorm: 362621 1 Tablet(s) PO daily No Start Date 01/04/2018 Inactive Levsin 0.125 mg tablet RxNorm: 2424931 1 Tablet(s) PO QID as needed FOR ABD REJI N No Start Date 11/04/2014 Inactive mirtazapine 7.5 mg t ablet RxNorm: 158898 1/2 Tablet(s) PO daily No Start Date 08/29/2013 Inactive Senior Vitamin Tab RxNorm: 1 Tablet(s) PO daily No Start Date 01/04/2018 Inactive Mobic 15 mg Tab RxNorm: 388457 1 Tablet(s) PO daily No Start Date 07/13/2011 Inactive Medication Administered Medication Codes Instruc tions Start Date Status Kenalog 40 mg/mL suspension for injection RxNorm: 1041464 Milliliter 11/25/2016 No longer Active Influenza Virus Vaccine 0.5 mL RxNorm: 02/06/2013 No longer Active ZOSTAVAX 19,400 unit Sub-Q Soln RxNo rm: [id number] 02/25/2011 No longer A ctive Pneumovax 23 25 mcg/0.5 mL Injection RxNorm: [id number] Milliliter 02/16/2011 No longer Active Influenza Virus [...] Item Item Code Result Date Comp Metabolic [id number] NA 143 mEq/L 04/10/2018 Comp Metabolic Bde968 K 3.8 mEq/L 04/10/2018 Comp Metabolic Uuz693 CL 105 mEq/L 04/10/2018 Comp Metabolic Ywy503 CO2 30.0 mEq/L 04/10/2018 Comp Metabolic Ezg363 AN ION GAP 12 04/10/2018 Comp Metabolic Aep317 GL UCOSE 95 mg/dL 04/10/2018 Comp Metabolic Oyk217 Cr eat 1.2 mg/dL 04/10/2018 Comp Metabolic Apo409 eG FR 60 ml/min/1.73m2 04/10 Comp Metabolic Fzg547 BUN 22 mg/dL 04/10/2018 Comp Metabolic Hij365 B/ C Ratio 18.2 Ratio 04/10/2018 Comp Metabolic Ugs256 CA LCIUM 10.3 mg/dL 04/10/2018 Comp Metabolic Vhw206 AL K PHOS 113 U/L 04/10/2018 Comp Metabolic Thc793 T(SGOT) 30 U/L 04/10/2018 Comp Metabolic Sfl464 AL T(SGPT) 19 U/L 04/10/2018 Comp Metabolic Qkz642 BI LI T 0.4 mg/dL 04/10/2018 Comp Metabolic Pbo895 AL BUMIN 4.2 g/dL 04/10/2018 Comp Metabolic Bwo494 TP RO 6.5 g/dL 04/10/2018 Comp Metabolic Elu283 GL OB 2.3 g/dL 04/10/2018 Comp Metabolic Ugi412 A/ G Ratio 1.8 Ratio 04/10/2018 Comp Metabolic Kbi039 Os mo 288 mOsmo 04/10/2018 Lipid Ord30 CHOL 133 mg/dL 04/10/2018 Lipid Ord30 HDL 49.0 mg/dl 04/10/2018 Lipid Ord30 TRIG 68 mg/dL 04/10/2018 Lipid Ord30 LDL 70 mg/dL 04/10/2018 Lipid Ord30 C/HDL 2.7 Ratio 04/10/2018 C RAP A SC 7208922 Strep A Negative 01/13/2018 Comp Metabolic Hht883 NA 134 mEq/L 10/07/2017 Comp Metabolic Mpy939 K 4.5 mEq/L 10/07/2017 Comp Metabolic Ouj781 CL 99 mEq/L 10/07/2017 Comp Metabolic Hhz700 CO2 31.0 mEq/L 10/07/2017 Comp Metabolic Rya015 AN ION GAP 9 10/07/2017 Comp Metabolic Rvz270 GL UCOSE 82 mg/dL 10/07/2017 Comp Metabolic Ofs217 Cr eat 1.0 mg/dL 10/07/2017 Comp Metabolic Nvn243 eG FR 77 ml/min/1.73m2 10/07 Comp Metabolic Bug805 BUN 16 mg/dL 10/07/2017 Comp Metabolic Iak396 B/ C Ratio 16.3 Ratio 10/07/2017 Comp Metabolic Xhi699 CA LCIUM 9.6 mg/dL 10/07/2017 Comp Metabolic Icj618 AL K PHOS 72 U/L 10/07/2017 Comp Metabolic Bwx223 T(SGOT) 21 U/L 10/07/2017 Comp Metabolic Egt705 AL T(SGPT) 14 U/L 10/07/2017 Comp Metabolic Kuo523 BI LI T 0.4 mg/dL 10/07/2017 Comp Metabolic Que792 AL BUMIN 4.0 g/dL 10/07/2017 Comp Metabolic Ykw207 TP RO 5.7 g/dL 10/07/2017 Comp Metabolic Viy105 GL OB 1.7 g/dL 10/07/2017 Comp Metabolic Ylt849 A/ G Ratio 2.4 Ratio 10/07/2017 Comp Metabolic Doa329 Os mo 269 mOsmo 10/07/2017 Lipid Ord30 CHOL 135 mg/dL 10/07/2017 Lipid Ord30 HDL 69.0 mg/dl 10/07/2017 Lipid Ord30 TRIG 52 mg/dL 10/07/2017 Lipid Ord30 LDL 56 mg/dL 10/07/2017 Lipid Ord30 C/HDL 2.0 Ratio 10/07/2017 %Hba1C Zps589 % HbA1c 21443-2 5.5 % 09/12/2017 %Hba1C Aoi834 Gluc Ave 111 mg/dL 09/12/2017 B12 Bnc904 B12 816.00 pg/ml 09/10/2017 Test(s) Not Perfromed Test(s) Not Performed Test(s) Not Performed. See B elow: 09/09/2017 Test(s) Not Perfromed TEST NAME VIT D 09/09/2017 Test(s) Not Perfromed Rejection Reason NO PAYABLE DX 018 Test(s) Not Perfromed COMMENT PATIENT SAID HE WAS TAKING SUPPLEMENT 09/09/2017 Test(s) Not Perfromed Metallurgical Inspector Tello Almeida 018 Lipid Ord30 CHOL 134 mg/dL 04/11/2017 Lipid Ord30 HDL 63.0 mg/dl 04/11/2017 Lipid Ord30 TRIG 45 mg/dL 04/11/2017 Lipid Ord30 LDL 62 mg/dL 04/11/2017 Lipid Ord30 C/HDL 2.1 Ratio 04/11/2017 Tsh Ord6 hTSH II 2.07 uIU/mL 04/11/2017 Body Fluid Crystals Source RIGHT ELBOW 6 Body Fluid Crystals 250910 CRYSTALS, BODY FLUID 02/18/2016 Uric Acid Body Fluid 958551 URIC ACID-FLUID 4.3 mg/dL 02/18/2016 Metabolic Ord15 [...] Ord15 CALCIUM 9.1 mg/dL 02/05/2016 Comp Metabolic Awf971 NA 129 mEq/L 10/08/2015 Comp Metabolic Udj724 K 4.7 mEq/L 10/08/2015 Comp Metabolic Mmf448 CL 98 mEq/L 10/08/2015 Comp Metabolic Cyw498 CO2 28.0 mEq/L 10/08/2015 Comp Metabolic Rrr768 AN ION GAP 8 10/08/2015 Comp Metabolic Hvr558 GL UCOSE 84 mg/dL 10/08/2015 Comp Metabolic Yqo846 Cr eat 1.3 mg/dL 10/08/2015 Comp Metabolic Kkq892 eG FR 56 ml/min/1.73m2 10/07 Comp Metabolic Rzp476 BUN 23 mg/dL 10/08/2015 Comp Metabolic Mqt926 B/ C Ratio 17.8 Ratio 10/08/2015 Comp Metabolic Qjn286 CA LCIUM 9.3 mg/dL 10/08/2015 Comp Metabolic Dzm280 AL K PHOS 68 U/L 10/08/2015 Comp Metabolic Usk223 T(SGOT) 24 U/L 10/08/2015 Comp Metabolic Qqa914 AL T(SGPT) 15 U/L 10/08/2015 Comp Metabolic Dmg929 BI LI T 0.5 mg/dL 10/08/2015 Comp Metabolic Rly536 AL BUMIN 4.0 g/dL 10/08/2015 Comp Metabolic Shu259 TP RO 5.9 g/dL 10/08/2015 Comp Metabolic Nuk699 GL OB 1.9 g/dL 10/08/2015 Comp Metabolic Eho751 A/ G Ratio 2.1 Ratio 10/08/2015 Comp Metabolic Jvf997 Os mo 262 mOsmo 10/08/2015 Lipid Ord30 [...] Ord30 C/HDL 2.3 Ratio 05/07/2015 Comp Metabolic Cqf331 NA 132 mEq/L 05/07/2015 Comp Metabolic Jdk653 K 4.4 mEq/L 05/07/2015 Comp Metabolic Ujq102 CL 97 mEq/L 05/07/2015 Comp Metabolic Ehf155 CO2 30.0 mEq/L 05/07/2015 Comp Metabolic Jwd656 AN ION GAP 9 05/07/2015 Comp Metabolic Qmp224 GL UCOSE 78 mg/dL 05/07/2015 Comp Metabolic Pyk245 Cr eat 1.2 mg/dL 05/07/2015 Comp Metabolic Kqk634 eG FR 60 ml/min/1.73m2 05/07 Comp Metabolic Qgb637 BUN 25 mg/dL 05/07/2015 Comp Metabolic Bqd542 B/ C Ratio 20.3 Ratio 05/07/2015 Comp Metabolic Goi796 CA LCIUM 9.6 mg/dL 05/07/2015 Comp Metabolic Ucx339 AL K PHOS 70 U/L 05/07/2015 Comp Metabolic Jqp762 T(SGOT) 27 U/L 05/07/2015 Comp Metabolic Fdx236 AL T(SGPT) 20 U/L 05/07/2015 Comp Metabolic Iia541 BI LI T 0.4 mg/dL 05/07/2015 Comp Metabolic Peq117 AL BUMIN 4.0 g/dL 05/07/2015 Comp Metabolic Ify761 TP RO 5.8 g/dL 05/07/2015 Comp Metabolic Oap994 GL OB 1.8 g/dL 05/07/2015 Comp Metabolic Gdz024 A/ G Ratio 2.3 Ratio 05/07/2015 Comp Metabolic Qvu028 Os mo 268 mOsmo 05/07/2015 Cbc With [...] hTSH II 4.07 uIU/mL 05/07/2015 Comp Metabolic Ogu033 NA 134 mEq/L 12/10/2014 Comp Metabolic Vtp006 K 4.8 mEq/L 12/10/2014 Comp Metabolic Hir001 CL 101 mEq/L 12/10/2014 Comp Metabolic Wca902 CO2 30.0 mEq/L 12/10/2014 Comp Metabolic Jwo156 AN ION GAP 8 12/10/2014 Comp Metabolic Huy273 GL UCOSE 85 mg/dL 12/10/2014 Comp Metabolic Xjm459 Cr eat 1.2 mg/dL 12/10/2014 Comp Metabolic Xjm556 eG FR 65 ml/min/1.73m2 12/10 Comp Metabolic Bxn008 BUN 25 mg/dL 12/10/2014 Comp Metabolic Lxf066 B/ C Ratio 21.7 Ratio 12/10/2014 Comp Metabolic Ifp369 CA LCIUM 9.5 mg/dL 12/10/2014 Comp Metabolic Jxb235 AL K PHOS 76 U/L 12/10/2014 Comp Metabolic Wnv308 T(SGOT) 27 U/L 12/10/2014 Comp Metabolic Tgq374 AL T(SGPT) 18 U/L 12/10/2014 Comp Metabolic Ouk971 BI LI T 0.5 mg/dL 12/10/2014 Comp Metabolic Xqc181 AL BUMIN 4.1 g/dL 12/10/2014 Comp Metabolic Cud170 TP RO 5.7 g/dL 12/10/2014 Comp Metabolic Dql973 GL OB 1.6 g/dL 12/10/2014 Comp Metabolic Oes443 A/ G Ratio 2.6 Ratio 12/10/2014 Comp Metabolic Obh933 Os mo 272 mOsmo 12/10/2014 B12 Uyk231 B12 1011.00 pg/ml 12/10/2014 Lipid Ord30 CHOL [...] Differential Ord2 RDW 14.3 % 12/10/2014 CBC 6172375 WBC 4.1 10e9/L 02/19/2013 CBC 9398461 RBC 4.39 10e12/L 02/19/2013 CBC 4687776 HGB 14.1 g/dL 02/19/2013 CBC 3751136 HCT DET 41.0 % 02/19/2013 CBC 2754282 MCV 93.4 fL 02/19/2013 CBC 6335968 MCH 32.1 pg 02/19/2013 CBC 9898432 MCHC 34.4 g/dL 02/19/2013 CBC 9271325 PLT 151 10e9/L 02/19/2013 CBC 6642583 MPV 11.8 fL 02/19/2013 CBC 4220320 YOVANNY % 63.2 % 02/19/2013 CBC 2635837 LY % 22.9 % 02/19/2013 CBC 3109339 MON % 11.5 % 02/19/2013 CBC 6052334 EOS % 2.2 % 02/19/2013 CBC 1566240 BASO % 0.2 % 02/19/2013 CBC 2248825 RDW 13.8 % 02/19/2013 CBC 9554255 ABS YOVANNY 2.59 10e9/L 02/19/2013 CBC 7116849 ABS LYMPH 0.94 10e9/L 02/19/2013 CBC 8352438 ABS MONO 0.47 10e9/L 02/19/2013 CBC 8712644 ABS EOS 0.09 10e9/L 02/19/2013 CBC 2007209 ABS BASO 0.01 10e9/L 02/19/2013 CBC 5662570 RDW-SD 46.0 fL 02/19/2013 TSH 8831112 TSH 2.094 uIU/ML 02/19/2013 FREE T4 8786568 FREE T4 1.18 NG/DL 02/19/2013 GFR CALC 5537465 GFR AA >60 ML/MIN 02/19/2013 GFR CALC 0031169 GFR NON -AA >60 ML/MIN 02/19/2013 CHEM 14 6333665 AST 30 U/L 02/19/2013 CHEM 14 5547321 ALT 19 IU/L 02/19/2013 CHEM 14 8065327 BUN 21 MG/DL 02/19/2013 CHEM 14 3009532 ALBUMIN 4.4 GM/DL 02/19/2013 CHEM 14 8807766 CHLORIDE 94 MMOL/L 02/19/2013 CHEM 14 2410972 BILI TOT 0.5 MG/DL 02/19/2013 CHEM 14 2116748 ALK PHOS 75 U/L 02/19/2013 CHEM 14 2742222 SODIUM 133 MMOL/L 02/19/2013 CHEM 14 2685043 CREATINI NE 1.07 MG/DL 02/19/2013 CHEM 14 7191686 CALCIUM 9.6 MG/DL 02/19/2013 CHEM 14 8030047 POTASSIUM 4.6 MMOL/L 02/19/2013 CHEM 14 4235074 PROT TOT 6.1 GM/DL 02/19/2013 CHEM 14 9974509 GLUCOSE 94 MG/DL 02/19/2013 CHEM 14 9961728 BICARB 31 MMOL/L 02/19/2013 CHEM 14 7771912 ANION GAP 8 MEQ/L 02/19/2013 UA 94038 Specific [place] 1.015 DateTime(Free Text in Aprima ) UA 02926 PH 6 DateTime(Free Text in Aprima ) UA 86796 GLUCOSE neg DateTime(Free Text in Aprima ) UA 71598 Protein neg DateTime(Free Text in Aprima ) UA 60463 Blood neg DateTime(Free Text in Aprima ) UA 84482 Bilirubin neg DateTime(Free Text in Aprima ) UA 04550 Ketones neg DateTime(Free Text in Aprima ) UA 97095 Urobilinogen neg DateTime(Free Text in Aprima ) UA 21032 Nitrite neg DateTime(Free Text in Aprima ) UA 45877 Leukocytes neg DateTime(Free Text in Aprima ) [...] No mental status change 10/13/2017 Psychiatric anxiety 0 11/2017 Psychiatric disturbances of memory 10/13/2017 Constitutional [...] 10/30/2013 None Full Exam - General 1995 Lymphatic [...] affect 03/20/2012 None Full Exam - General 1995 [...] VACC PRSV FREE I NC ANTIG CPT-4: 00139 02/08/2018 URINALYSIS NONAUTO W /O SCOPE CPT-4: 26181 09/26/2017 ADMIN INFLUENZA VIRU S VAC CPT-4: G0008 01/25/2017 FLU VACC PRSV FREE I NC ANTIG CPT-4: 00773 01/25/2017 THER/PROPH/DIAG INJ SC/IM CPT-4: 29896 11/25/2016 TRIAMCINOLONE ACET I [place] NOS CPT-4: J3301 11/25/2016 DRAIN/INJECT JOINT/B URSA CPT-4: 70293 02/17/2016 IMMUNIZATION ADMIN CPT- 4: 54392 05/06/2015 PNEUMOCOCCAL VACC 13 TIFFANIE IM Formatting Model/CDA Sections, Assigned to/Celia Minaya CT: [id number] CPT-4: 04305Yfcyuqs 05/06/2015 ADMIN INFLUENZA VIRU S VAC CPT-4: G0008 02/19/2015 FLU VACC 4 TIFFANIE 3 YRS PLUS IM Formatting Model/CDA Sections, Assigned to SNOMED CT: [id number] CPT-4: 58649Ivmipdl 02/19/2015 URINALYSIS NONAUTO W /O SCOPE CPT-4: 33806 05/23/2014 ADMIN INFLUENZA VIRU S VAC CPT-4: G0008 03/26/2014 FLU VAC NO PRSV 4 VA L 3 YRS+ Assigned to/Celia Minaya CPT-4: 02780Ebwjwoc 03/26/2014 PRESCRIP TRANSMIT A ERX SY CPT-4: G8553 04/04/2013 ROUTINE VENIPUNCTURE CPT-4: 31235 02/19/2013 ADMIN INFLUENZA VIRU S VAC CPT-4: G0008 02/06/2013 FLULAVAL VACC, 3 YRS & >, IM CPT-4: Q2036 02/06/2013 08932 EST. PATIENT, LEVEL IV CPT-4: 65522 06/19/2012 PRESCRIP TRANSMIT A ERX SY CPT-4: G8553 06/19/2012 PRESCRIP TRANSMIT A ERX SY CPT-4: G8553 03/20/2012 PRESCRIP TRANSMIT A ERX SY CPT-4: G8553 06/23/2011 IMMUNIZATION ADMIN CPT- 4: 48570 02/25/2011 ZOSTER VACC SC (No lloyd stephens, patient supplied vaccine) CPT-4: 11378VJ 02/25/2011 ADMIN PNEUMOCOCCAL V ACCINE SNOMED CT: [id number] CPT-4: G0009 02/16/2011 Pneumococcal Polysac charide Vaccine, 23-Valent, Ad CPT-4: 73422 02/16/2011 ADMIN INFLUENZA VIRU S VAC CPT-4: G0008 02/09/2011 FLULAVAL VACC, 3 YRS & >, IM CPT-4: Q2036 02/09/2011 PRESCRIP TRANSMIT A ERX SY CPT-4: G8553 02/01/2011 URINALYSIS NONAUTO W /O SCOPE CPT-4: 01939 01/27/2011 Vital Signs Date Vital 05/18/2018 Blood Pressure 1: 142/64 Code: 8480-6 BMI: 19.9 Code: 81266-3 Heart Rate 1: 52 bpm Height: 5'9" SpO2: 98% Weight: 135 lbs 04/13/2018 Blood Pressure 1: 128/58 Code: 8480-6 BMI: 21.0 Code: 16011-0 Heart Rate 1: 83 bpm Height: 5'9" SpO2: 94% Weight: 142 lbs 02/08/2018 Blood Pressure 1: 136/76 Code: 8480-6 BMI: 19.9 Code: 70977-4 Heart Rate 1: 78 bpm Height: 5'9" SpO2: 99% Weight: 135 lbs 01/19/2018 Blood Pressure 1: 114/78 Code: 8480-6 BMI: 19.9 Code: 76274-9 Heart Rate 1: 80 bpm Height: 5'9" SpO2: 98% Weight: 135 lbs 01/12/2018 Blood Pressure 1: 130/78 Code: 8480-6 BMI: 19.8 Code: 22443-1 Heart Rate 1: 85 bpm Height: 5'9" SpO2: 97% Weight: 134 lbs 01/05/2018 Blood Pressure 1: 122/70 Code: 8480-6 BMI: 19.6 Code: 29580-6 Heart Rate 1: 87 bpm Height: 5'9" SpO2: 96% Weight: 133 lbs 11/14/2017 Blood Pressure 1: 130/70 Code: 8480-6 BMI: 19.5 Code: 23229-2 Heart Rate 1: 75 bpm Height: 5'9" SpO2: 98% Weight: 132 lbs 2017 Blood Pressure 1: 116/70 Code: 8480-6 BMI: 19.5 Code: 93271-2 Heart Rate 1: 55 bpm Height: 5'9" SpO2: 95% Weight: 132 lbs 10/13/2017 Blood Pressure 1: 130/70 Code: 8480-6 BMI: 19.3 Code: 04315-9 Heart Rate 1: 67 bpm Height: 5'9" SpO2: 98% Weight: 131 lbs 09/26/2017 Blood Pressure 1: 126/70 Code: 8480-6 BMI: 19.1 Code: 24658-4 Heart Rate 1: 66 bpm Height: 5'9" SpO2: 100% Weight: 129 lbs 8 oz 09/12/2017 Blood Pressure 1: 120/70 Code: 8480-6 BMI: 19.5 Code: 51358-9 Heart Rate 1: 83 bpm Height: 5'9" SpO2: 99% Weight: 132 lbs 09/09/2017 Blood Pressure 1: 126/70 Code: 8480-6 BMI: 19.3 Code: 91624-0 Heart Rate 1: 80 bpm Height: 5'9" SpO2: 98% Weight: 131 lbs 08/17/2017 Blood Pressure 1: 130/74 Code: 8480-6 BMI: 19.6 Code: 17661-7 Heart Rate 1: 72 bpm Height: 5'9" SpO2: 98% Weight: 133 lbs 07/20/2017 Blood Pressure 1: 124/62 Code: 8480-6 BMI: 19.8 Code: 19571-8 Heart Rate 1: 65 bpm Height: 5'9" SpO2: 96% Weight: 134 lbs 07/01/2017 Blood Pressure 1: 134/64 Code: 8480-6 BMI: 21.0 Code: 08558-2 Height: 5'9" Weight: 142 lbs 06/21/2017 Blood Pressure 1: 142/80 Code: 8480-6 BMI: 21.0 Code: 15613-9 Heart Rate 1: 63 bpm Height: 5'9" SpO2: 98% Weight: 142 lbs 03/21/2017 Blood Pressure 1: 128/66 Code: 8480-6 BMI: 20.8 Code: 73015-8 Heart Rate 1: 61 bpm Height: 5'9" SpO2: 98% Weight: 141 lbs 03/08/2017 Blood Pressure 1: 134/68 Code: 8480-6 BMI: 20.4 Code: 79689-8 Heart Rate 1: 56 bpm Height: 5'9" SpO2: 99% Weight: 138 lbs 01/25/2017 Blood Pressure 1: 98/62 Code: 8480-6 BMI: 20.6 Code: 69495-3 Heart Rate 1: 71 bpm Height: 5'9" SpO2: 97% Weight: 139 lbs 8 oz 12/20/2016 Blood Pressure 1: 120/68 Code: 8480-6 BMI: 20.4 Code: 36487-5 Heart Rate 1: 70 bpm Height: 5'9" [...] 1: 120/60 Code: 8480-6 BMI: 20.7 Code: 65638-1 Heart Rate 1: 74 bpm Height: 5'9" SpO2: 95% Weight: 140 lbs 08/23/2016 Blood Pressure 1: 118/68 Code: 8480-6 BMI: 20.8 Code: 58113-5 Heart Rate 1: 54 bpm Height: 5'9" SpO2: 97% Weight: 141 lbs 04/26/2016 Blood Pressure 1: 108/64 Code: 8480-6 BMI: 21.0 Code: 25952-3 Heart Rate 1: 62 bpm Height: 5'9" SpO2: 95% Weight: 142 lbs 02/17/2016 Blood Pressure 1: 138/80 Code: 8480-6 BMI: 20.2 Code: 29077-7 Heart Rate 1: 76 bpm Height: 5'9" SpO2: 97% Weight: 137 lbs 02/09/2016 Blood Pressure 1: 140/76 Code: 8480-6 BMI: 20.2 Code: 65993-3 Heart Rate 1: 72 bpm Height: 5'9" SpO2: 96% Weight: 137 lbs 02/03/2016 Blood Pressure 1: 136/80 Code: 8480-6 BMI: 20.7 Code: 49108-5 Heart Rate 1: 86 bpm Height: 5'9" SpO2: 96% Weight: 140 lbs 01/26/2016 Blood Pressure 1: 144/78 Code: 8480-6 BMI: 20.7 Code: 46512-8 Heart Rate 1: 73 bpm Height: 5'9" SpO2: 97% Temperature: 37.0 (C ) / 98.6 (F) Weight: 140 lbs 01/21/2016 Blood Pressure 1: 116/62 Code: 8480-6 BMI: 20.4 Code: 54336-5 Heart Rate 1: 66 bpm Height: 5'9" SpO2: 97% Weight: 138 lbs 12/29/2015 Blood Pressure 1: 130/74 Code: 8480-6 BMI: 20.4 Code: 41636-4 Heart Rate 1: 51 bpm Height: 5'9" SpO2: 98% Weight: 138 lbs 09/02/2015 Blood Pressure 1: 126/60 Code: 8480-6 BMI: 22.3 Code: 09842-5 Heart Rate 1: 55 bpm Height: 5'9" SpO2: 96% Weight: 151 lbs 05/06/2015 Blood Pressure 1: 132/72 Code: 8480-6 BMI: 21.0 Code: 89921-9 Heart Rate 1: 63 bpm Height: 5'9" SpO2: 97% Weight: 142 lbs 03/05/2015 Blood Pressure 1: 130/68 Code: 8480-6 BMI: 21.0 Code: 90679-2 Heart Rate 1: 61 bpm Height: 5'9" SpO2: 96% Weight: 142 lbs 12/04/2014 Blood Pressure 1: 122/64 Code: 8480-6 BMI: 21.3 Code: 60032-1 Heart Rate 1: 72 bpm Height: 5'9" Weight: 144 lbs 09/24/2014 Blood Pressure 1: 142/80 Code: 8480-6 BMI: 20.4 Code: 26547-2 Heart Rate 1: 80 bpm Height: 5'9" Weight: 138 lbs 09/09/2014 Blood Pressure 1: 122/74 Code: 8480-6 BMI: 20.5 Code: 50331-1 Heart Rate 1: 64 bpm Height: 5'9" Weight: 139 lbs 07/26/2014 Blood Pressure 1: 136/82 Code: 8480-6 BMI: 20.4 Code: 85115-5 Heart Rate 1: 87 bpm Height: 5'9" SpO2: 92% Weight: 138 lbs 07/10/2014 Blood Pressure 1: 130/74 Code: 8480-6 BMI: 21.1 Code: 01005-8 Heart Rate 1: 64 bpm Height: 5'9" Weight: 143 lbs 06/06/2014 Blood Pressure 1: 142/88 Code: 8480-6 BMI: 20.4 Code: 91284-7 Heart Rate 1: 68 bpm Height: 5'9" Weight: 138 lbs 05/29/2014 Blood Pressure 1: 108/72 Code: 8480-6 BMI: 20.5 Code: 53833-4 Heart Rate 1: 60 bpm Height: 5'9" Weight: 139 lbs 05/20/2014 Blood Pressure 1: 140/72 Code: 8480-6 BMI: 21.6 Code: 39368-0 Heart Rate 1: 60 bpm Height: 5'9" SpO2: 98% Temperature: 36.2 (C ) / 97.2 (F) Weight: 146 lbs 03/25/2014 Blood Pressure 1: 128/60 Code: 8480-6 BMI: 21.4 Code: 38791-5 Heart Rate 1: 62 bpm Height: 5'9" Weight: 145 lbs 02/08/2014 Blood Pressure 1: 136/82 Code: 8480-6 BMI: 21.3 Code: 98835-1 Heart Rate 1: 68 bpm Height: 5'9" Weight: 144 lbs 12/24/2013 Blood Pressure 1: 122/76 Code: 8480-6 BMI: 21.6 Code: 37040-6 Heart Rate 1: 58 bpm Height: 5'9" Weight: 146 lbs 11/20/2013 Blood Pressure 1: 112/62 Code: 8480-6 BMI: 20.7 Code: 04967-8 Heart Rate 1: 56 bpm Height: 5'9" Weight: 140 lbs 10/30/2013 Blood Pressure 1: 130/68 Code: 8480-6 BMI: 20.1 Code: 99929-9 Heart Rate 1: 68 bpm Height: 5'9" SpO2: 96% Weight: 136 lbs 10/08/2013 Blood Pressure 1: 128/72 Code: 8480-6 BMI: 20.8 Code: 65952-1 Heart Rate 1: 60 bpm Height: 5'9" Temperature: 36.6 (C ) / 97.8 (F) Weight: 141 lbs 06/18/2013 Blood Pressure 1: 124/78 Code: 8480-6 BMI: 20.8 Code: 83983-9 Heart Rate 1: 64 bpm Height: 5'9" Weight: 141 lbs 04/04/2013 Blood Pressure 1: 138/60 Code: 8480-6 BMI: 20.8 Code: 77671-3 Heart Rate 1: 56 bpm Height: 5'9" Weight: 141 lbs 02/19/2013 Blood Pressure 1: 152/74 Code: 8480-6 BMI: 21.0 Code: 69981-5 Heart Rate 1: 60 bpm Height: 5'9" Weight: 142 lbs 10/16/2012 Blood Pressure 1: 122/70 Code: 8480-6 BMI: 20.8 Code: 33508-3 Heart Rate 1: 64 bpm Height: 5'9" Weight: 141 lbs 06/19/2012 Blood Pressure 1: 120/72 Code: 8480-6 BMI: 21.1 Code: 68943-4 Heart Rate 1: 60 bpm Height: 5'9" Weight: 143 lbs 03/20/2012 Blood Pressure 1: 114/76 Code: 8480-6 Heart Rate 1: 60 bpm Respiratory Rate: 16 bpm Weight: 143 lbs 01/24/2012 Blood Pressure 1: 134/70 Code: 8480-6 Heart Rate 1: 64 bpm Weight: 143 lbs 12/20/2011 Blood Pressure 1: 98/72 Code: 8480-6 BMI: 21.1 Code: 54291-7 Heart Rate 1: 60 bpm Height: 5'9" Respiratory Rate: 16 bpm Weight: 143 lbs 12/09/2011 Blood Pressure 1: 110/60 Code: 8480-6 Heart Rate 1: 66 bpm SpO2: 98% Weight: 141 lbs 08/25/2011 Blood Pressure 1: 112/70 Code: 8480-6 BMI: 20.8 Code: 28001-1 Heart Rate 1: 54 bpm Height: 5'9" Respiratory Rate: 16 bpm Weight: 141 lbs 06/23/2011 Blood Pressure 1: 126/64 Code: 8480-6 Heart Rate 1: 60 bpm Respiratory Rate: 16 bpm Weight: 142 lbs 04/19/2011 Blood Pressure 1: 124/64 Code: 8480-6 BMI: 21.1 Code: 25754-5 Heart Rate 1: 64 bpm Height: 5'9" Respiratory Rate: 16 bpm Weight: 143 lbs 03/23/2011 Blood Pressure 1: 137/71 Code: 8480-6 Heart Rate 1: 57 bpm 03/08/2011 Blood Pressure 1: 154/70 Code: 8480-6 BMI: 20.8 Code: 47571-9 Heart Rate 1: 60 bpm Height: 5'9" Respiratory Rate: 16 bpm Weight: 141 lbs 03/01/2011 Blood Pressure 1: 178/80 Code: 8480-6 Blood Pressure 2: 168/70 Code: 8480-6 BMI: 24.1 Code: 28795-0 Heart Rate 1: 60 bpm Height: 5'9" Respiratory Rate: 16 bpm Weight: 163 lbs 02/01/2011 Blood Pressure 1: 162/84 Code: 8480-6 Heart Rate 1: 60 bpm Respiratory Rate: 16 bpm Weight: 144 lbs 01/27/2011 Blood Pressure 1: 138/54 Code: 8480-6 BMI: 21.1 Code: 99409-8 Heart Rate 1: 68 bpm Height: 5'9" Respiratory Rate: 16 bpm Weight: 143 lbs 01/26/2011 Blood Pressure 1: 148/86 Code: 8480-6 BMI: 21.3 Code: 56158-9 Heart Rate 1: 74 bpm Height: 5'9" Weight: 144 lbs 01/15/2011 Blood Pressure 1: 136/76 Code: 8480-6 BMI: 20.5 Code: 10022-3 Heart Rate 1: 70 bpm Height: 5'10" Weight: 141 lbs 01/06/2011 Blood Pressure 1: 148/72 Code: 8480-6 BMI: 20.2 Code: 27049-1 Heart Rate 1: 72 bpm Height: 5'10" [...] Encounter Performer Loca tion Codes Date () [id number] EST. 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 CPT-4: 31553 05/18/2018 ([id number]) 75777 EST. P ATIENT, LEVEL III Diagnosis: Essential (primary) hypertension[ICD10: I10] Ale Carlos MD, C CPT-4: 12901 04/13/2018 ([id number]) 48696 EST. P ATIENT, LEVEL IV Diagnosis: Irritable bowel syndrome with constipation[ICD10: K58.1] Diagnosis: Other lesions of oral mucosa[ICD10: K13.79] Diagnosis: Dry mouth, unspecified[ICD10: R68.2] Diagnosis: Encounter for immunization[ICD10: Z23] Diagnosis: Essential (primary) hypertension[ICD10: I10] Ale Carlos MD, C CPT-4: 81198 02/08/2018 ([id number]) 38182 EST. P ATIENT, LEVEL III Diagnosis: Slow transit constipation[ICD10: K59.01] Diagnosis: Dry mouth, unspecified[ICD10: R68.2] Nelly Carlos MD, [facility] CPT-4: 67963 01/19/2018 ([id number]) Miscellaneou s no charge Diagnosis: Acute pharyngitis, unspecified[ICD10: J02.9] Nelly Carlos MD, [facility] CPT-4: 89765 01/13/2018 ([id number]) 99317 EST. P ATIENT, LEVEL III Diagnosis: Candidal stomatitis[ICD10: B37.0] Diagnosis: Cough[ICD10: R05] Nelly Carlos MD, [facility] CPT-4: 49365 01/12/2018 ([id number]) 84677 EST. 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 P ATIENT, LEVEL IV Diagnosis: Irritable bowel syndrome with constipation[ICD10: K58.1] Diagnosis: Malignant neoplasm of prostate[ICD10: C61] Ale Carlos MD, [facility] CPT-4: 88700 11/14/2017 [id number] EST. PATIENT, LEVEL IV Diagnosis: Slow transit constipation[ICD10: K59.01] Diagnosis: Gastro-esophageal reflux disease without esophagitis[ICD10: K21.9] Ruchi Carlos MD, [facility] CPT-4: 29741 2017 ([id number]) 71829 EST. P ATIENT, LEVEL IV Diagnosis: Essential (primary) hypertension[ICD10: I10] Diagnosis: Slow transit constipation[ICD10: K59.01] Diagnosis: Underweight[ICD10: R63.6] Diagnosis: Gastro-esophageal reflux disease without esophagitis[ICD10: K21.9] Ale Carlos MD, [facility] CPT-4: 85851 10/13/2017 ([id number]) 93541 EST. P ATIENT, LEVEL IV Diagnosis: Slow transit constipation[ICD10: K59.01] Diagnosis: Gastroparesis[ICD10: K31.84] Diagnosis: Gastro-esophageal reflux disease without esophagitis[ICD10: K21.9] Diagnosis: Dysuria[ICD10: R30.0] Ale Carlos MD, [facility] CPT-4: 04264 09/26/2017 ([id number]) 55616 EST. P ATIENT, LEVEL IV Diagnosis: Other abnormal glucose[ICD10: R73.09] Diagnosis: Slow transit constipation[ICD10: K59.01] Ale Carlos MD, [facility] CPT-4: 07979 09/12/2017 [id number] EST. PATIENT, LEVEL III Diagnosis: Other fatigue[ICD10: R53.83] Ruchi Carlos MD, [facility] CPT-4: 63241 09/09/2017 ([id number]) 27337 EST. P ATIENT, LEVEL IV Diagnosis: Slow transit constipation[ICD10: K59.01] Diagnosis: Irritable bowel syndrome with constipation[ICD10: K58.1] Diagnosis: Essential (primary) hypertension[ICD10: I10] Ale Carlos MD, [facility] CPT-4: 82054 08/17/2017 ([id number]) 76079 EST. P ATIENT, LEVEL III Diagnosis: Slow transit constipation[ICD10: K59.01] Diagnosis: Gastroparesis[ICD10: K31.84] Ale Carlos MD, [facility] CPT-4: 36400 07/20/2017 [id number] EST. PATIENT, LEVEL III Diagnosis: Irritable bowel syndrome with constipation[ICD10: K58.1] Ruchi Carlos MD, [facility] CPT-4: 87971 07/01/2017 ([id number]) 25631 EST. P ATIENT, LEVEL IV Diagnosis: Essential (primary) hypertension[ICD10: I10] Diagnosis: Gas pain[ICD10: R14.1] Diagnosis: Generalized anxiety disorder[ICD10: F41.1] Diagnosis: Cervicalgia[ICD10: M54.2] Diagnosis: Pain in thoracic spine[ICD10: M54.6] Diagnosis: Unsteadiness on feet[ICD10: R26.81] Ale Carlos MD, [facility] CPT- 4: 45927 06/21/2017 ([id number]) 95204 EST. P ATIENT, LEVEL III Diagnosis: Essential (primary) hypertension[ICD10: I10] Ale Carlos MD, C CPT-4: 85817 03/21/2017 08891 EST. PATIENT, LEVEL III Diagnosis: Other allergic rhinitis[ICD10: J30.89] Nelly Carlos MD, [facility] CPT-4: 01484 03/08/2017 ([id number]) 84452 EST. P ATIENT, LEVEL III Diagnosis: Encounter for immunization[ICD10: Z23] Diagnosis: Other hypotension[ICD10: I95.89] Ale Carlos MD, [facility] CPT-4: 42846 01/25/2017 ([id number]) 76948 EST. P ATIENT, LEVEL III Diagnosis: Essential (primary) hypertension[ICD10: I10] Diagnosis: Acute recurrent maxillary sinusitis[ICD10: J01.01] Ale Carlos MD, [facility] CPT-4: 58367 12/20/2016 ([id number]) 78731 EST. P ATIENT, LEVEL III Diagnosis: Acute recurrent ethmoidal sinusitis[ICD10: J01.21] Ale Carlos MD, [facility] CPT-4: 35787 12/01/2016 ([id number]) 06995 EST. P ATIENT, LEVEL III Diagnosis: Bronchitis, not specified as acute or chronic[ICD10: J40] Diagnosis: Cough[ICD10: R05] Ale Carlos MD, [facility] CPT-4: 69788 11/25/2016 ([id number]) 55523 EST. P ATIENT, LEVEL III Diagnosis: Cough[ICD10: R05] Diagnosis: Bronchitis, not specified as acute or chronic[ICD10: J40] Diagnosis: Candidal esophagitis[ICD10: B37.81] Ale Carlos MD, [facility] CPT- 4: 53509 11/18/2016 ([id number]) 91226 EST. P ATIENT, LEVEL IV Diagnosis: Essential (primary) hypertension[ICD10: I10] Diagnosis: Mild cognitive impairment, so stated[ICD10: G31.84] Ale Carlos MD, [facility] CPT-4: 45678 08/23/2016 ([id number]) 13985 EST. P ATIENT, LEVEL III Diagnosis: Essential (primary) hypertension[ICD10: I10] Ale Carlos MD, C CPT-4: 27641 04/26/2016 ([id number]) Miscellaneou s no charge Diagnosis: Olecranon bursitis, right elbow[ICD10: M70.21] Nelly Carlos MD, [facility] CPT-4: 97312 02/09/2016 ([id number]) 84815 EST. P ATIENT, LEVEL III Diagnosis: Olecranon bursitis, right elbow[ICD10: M70.21] Nelly Carlos MD, [facility] CPT-4: 73641 02/03/2016 ([id number]) 77810 EST. P ATIENT, LEVEL III Diagnosis: Generalized abdominal tenderness[ICD10: R10.817] Ale Carlos MD, [facility] CPT-4: 33720 01/26/2016 66204 EST. PATIENT, LEVEL IV Diagnosis: Other allergic rhinitis[ICD10: J30.89] Ruchi Carlos MD, [facility] CPT-4: 73762 01/21/2016 ([id number]) 01490 EST. P ATIENT, LEVEL IV Diagnosis: Essential (primary) hypertension[ICD10: I10] Diagnosis: Hypo-osmolality and hyponatremia[ICD10: E87.1] Ale Carlos MD, [facility] CPT-4: 14041 12/29/2015 ([id number]) 57224 EST. P ATIENT, LEVEL IV Diagnosis: Essential (primary) hypertension[ICD10: I10] Diagnosis: Mild cognitive impairment, so stated[ICD10: G31.84] Ale Carlos MD, [facility] CPT-4: 22125 09/02/2015 ([id number]) 54076 EST. P ATIENT, LEVEL IV Diagnosis: Mixed hyperlipidemia[ICD10: E78.2] Diagnosis: Generalized anxiety disorder[ICD10: F41.1] Diagnosis: Mild cognitive impairment, so stated[ICD10: G31.84] Diagnosis: Essential (primary) hypertension[ICD10: I10] Diagnosis: Encounter for immunization[ICD10: Z23] Ale Carlos MD, [facility] CPT-4: 48025 05/06/2015 ([id number]) 83820 EST. 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 CPT-4: 12272 03/05/2015 ([id number]) 98916 EST. P ATIENT, LEVEL IV Diagnosis: ESSENTIAL HYPERTENSION[ICD9: 401.9] Diagnosis: GENERALIZED ANXIETY DISEASE[ICD9: 300.02] Diagnosis: MILD COGNITIVE IMPAIREMT[ICD9: 331.83] Diagnosis: IRRITABLE COLON[ICD9: 564.1] Ale Carlos MD, [facility] CPT-4: 82580 12/04/2014 ([id number]) 62161 EST. P ATIENT, LEVEL IV Diagnosis: Abdominal pain[ICD9: 789.00] Diagnosis: GENERALIZED ANXIETY DISEASE[ICD9: 300.02] Diagnosis: Hyponatremia[ICD9: 276.1] Diagnosis: ESSENTIAL HYPERTENSION[ICD9: 401.9] Nelly Carlos MD, [facility] CPT-4: 52491 09/24/2014 ([id number]) 36289 EST. P ATIENT, LEVEL IV Diagnosis: ESSENTIAL HYPERTENSION[ICD9: 401.9] Diagnosis: Osteoarthritis[ICD9: 715.90] Diagnosis: Mild cognitive impairment with memory loss[ICD9: 331.83] Ale Carlos MD, [facility] CPT-4: 69098 09/09/2014 ([id number]) 87747 EST. P ATIENT, LEVEL III Diagnosis: GENERALIZED ANXIETY DISEASE[ICD9: 300.02] Diagnosis: Depression[ICD9: 311] Ale Carlos MD, [facility] CPT-4: 05560 07/26/2014 ([id number]) 00372 EST. P ATIENT, LEVEL IV Diagnosis: ESSENTIAL HYPERTENSION[ICD9: 401.9] Diagnosis: GENERALIZED ANXIETY DISEASE[ICD9: 300.02] Diagnosis: MILD COGNITIVE IMPAIREMT[ICD9: 331.83] Ale Carols MD, [facility] CPT-4: 71421 07/10/2014 ([id number]) 37335 EST. P ATIENT, LEVEL IV Diagnosis: Dizziness[ICD9: 780.4] Diagnosis: GENERALIZED ANXIETY DISEASE[ICD9: 300.02] Diagnosis: Depression[ICD9: 311] Diagnosis: ESSENTIAL HYPERTENSION[ICD9: 401.9] Diagnosis: Urinary frequency[ICD9: 788.41] Ale Carlos MD, [facility] CPT-4: 97196 06/06/2014 ([id number]) 82626 EST. P ATIENT, LEVEL IV Diagnosis: ESSENTIAL HYPERTENSION[ICD9: 401.9] Diagnosis: GENERALIZED ANXIETY DISEASE[ICD9: 300.02] Diagnosis: Mild cognitive impairment with memory loss[ICD9: 331.83] Ale Carlos MD, [facility] CPT-4: 39806 05/29/2014 ([id number]) 43350 EST. P ATIENT, LEVEL IV Diagnosis: Pneumonia[ICD9: 486] Diagnosis: COUGH[ICD9: 786.2] Diagnosis: Hyponatremia[ICD9: 276.1] Diagnosis: ALLERGIC RHINITIS[ICD9: 477.9] Ale Carlos MD, [facility] CPT-4: 27494 05/20/2014 ([id number]) 39283 EST. P ATIENT, LEVEL III Diagnosis: ESSENTIAL HYPERTENSION[ICD9: 401.9] Diagnosis: Cough[ICD9: 786.2] Ale Carlos MD, [facility] CPT-4: 85221 03/25/2014 ([id number]) 85487 EST. P ATIENT, LEVEL III Diagnosis: COUGH[ICD9: 786.2] Diagnosis: ALLERGIC RHINITIS[ICD9: 477.9] Nelly Carlos MD, [facility] CPT- 4: 72779 02/08/2014 ([id number]) 03974 EST. P ATIENT, LEVEL III Diagnosis: ESSENTIAL HYPERTENSION[ICD9: 401.9] Diagnosis: Nasal congestion[ICD9: 478.19] Ale Carlos MD, [facility] CPT-4: 84418 12/24/2013 ([id number]) 79851 EST. P ATIENT, LEVEL III Diagnosis: Seasonal allergies[ICD9: 477.9] Diagnosis: Nasal congestion[ICD9: 478.19] Diagnosis: ABNORMAL LOSS OF WEIGHT[ICD9: 783.21] Ale Carlos MD, [facility] CPT-4: 52891 11/20/2013 ([id number]) 81074 EST. P ATIENT, LEVEL III Diagnosis: ABNORMAL LOSS OF WEIGHT[ICD9: 783.21] Diagnosis: MALAISE AND FATIGUE[ICD9: 780.79] Diagnosis: Hyponatremia[ICD9: 276.1] Nelly Carlos MD, [facility] CPT- 4: 12120 10/30/2013 ([id number]) 12475 EST. P ATIENT, LEVEL III Diagnosis: Acute maxillary sinusitis[ICD9: 461.0] Diagnosis: COUGH[ICD9: 786.2] Ale Carlos MD, [facility] CPT-4: 55849 10/08/2013 ([id number]) 04001 EST. P ATIENT, LEVEL IV Diagnosis: ESSENTIAL HYPERTENSION[SNOMED: 57698927] Diagnosis: GENERALIZED ANXIETY DISEASE[ICD9: 300.02] Diagnosis: OSTEOARTH NOS-UNSPEC[ICD9: 715.90] Diagnosis: Coronary artery disease[ICD9: 414.00] Ale Carlos MD, [facility] CPT-4: 55860 06/18/2013 ([id number]) 46609 EST. P ATIENT, LEVEL III Diagnosis: ESSENTIAL HYPERTENSION[SNOMED: 37508034] Ale Carlos MD, [facility] CPT-4: 90883 04/04/2013 ([id number]) 73314 EST. P ATIENT, LEVEL IV Diagnosis: ESSENTIAL HYPERTENSION[SNOMED: 80317903] Diagnosis: Leukopenia[ICD9: 288.50] Diagnosis: Encounter for long-term (current) use of other medications[ICD9: V58.69] Ale Carlos MD, [facility] CPT-4: 96707 02/19/2013 ([id number]) 36308 EST. P ATIENT, LEVEL IV Diagnosis: ESSENTIAL HYPERTENSION[SNOMED: 08446529] Diagnosis: MILD COGNITIVE IMPAIREMT[ICD9: 331.83] Ale Carlos MD, [facility] CPT-4: 66423 10/16/2012 ([id number]) 05532 EST. P ATIENT, LEVEL IV Diagnosis: ESSENTIAL HYPERTENSION[SNOMED: 83486257] Diagnosis: GENERALIZED ANXIETY DISEASE[ICD9: 300.02] Diagnosis: IRRITABLE COLON[ICD9: 564.1] Ale Carlos MD, [facility] CPT-4: 33416 03/20/2012 46104 EST. PATIENT, LEVEL IV Diagnosis: ESSENTIAL HYPERTENSION[SNOMED: 90554176] Diagnosis: Osteoarthritis[ICD9: 715.90] Diagnosis: HYPERLIPIDEMIA[ICD9: 272.4] Ale Carlos MD, [facility] CPT-4: 70695 01/24/2012 55138 EST. PATIENT, LEVEL IV Diagnosis: ESSENTIAL HYPERTENSION[SNOMED: 50894842] Diagnosis: BPH W URINARY OBS/LUTS[ICD9: 600.01] Ale Carlos MD, [facility] CPT-4: 67748 12/20/2011 ([id number]) 53349 EST. P ATIENT, LEVEL III Diagnosis: Lump in the groin[ICD9: 789.30] Ale Carlos MD, [facility] CPT-4: 46872 12/09/2011 ([id number]) 17069 EST. P ATIENT, LEVEL IV Diagnosis: ESSENTIAL HYPERTENSION[SNOMED: 47367403] Diagnosis: Mild cognitive impairment[ICD9: 331.83] Ale Carlos MD, [facility] CPT-4: 33648 08/25/2011 ([id number]) 57824 EST. P ATIENT, LEVEL IV Diagnosis: ESSENTIAL HYPERTENSION[SNOMED: 53620694] Diagnosis: GENERALIZED ANXIETY DISEASE[ICD9: 300.02] Diagnosis: MILD COGNITIVE IMPAIREMT[ICD9: 331.83] Diagnosis: IRRITABLE COLON[ICD9: 564.1] Ale Carlos MD, [facility] CPT-4: 34435 06/23/2011 ([id number]) 69863 EST. 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 PATIENT, LEVEL I Diagnosis: ESSENTIAL HYPERTENSION[SNOMED: 23886632] Ale Carlos MD, [facility] CPT-4: 99791 03/23/2011 66641 EST. PATIENT, LEVEL III Diagnosis: ESSENTIAL HYPERTENSION[SNOMED: 47479957] Diagnosis: Laceration of finger, index[ICD9: 883.0] Ale aCrlos MD, [facility] CPT-4: 39383 03/08/2011 67833 EST. PATIENT, LEVEL III Diagnosis: ESSENTIAL HYPERTENSION[SNOMED: 24401475] Diagnosis: Irritable bowel syndrome (IBS)[ICD9: 564.1] Ale Carlos MD, [facility] CPT-4: 62174 03/01/2011 48876 EST. PATIENT, LEVEL IV Diagnosis: Mild cognitive impairment with memory loss[ICD9: 331.83] Diagnosis: GENERALIZED ANXIETY DISEASE[ICD9: 300.02] Diagnosis: Bruising[ICD9: 924.9] Diagnosis: HYDROCELE[ICD9: 603.9] Ale Carlos MD, [facility] CPT-4: 10514 02/01/2011 60560 EST. PATIENT, LEVEL III Diagnosis: Testicular pain[ICD9: 608.9] Diagnosis: GENERALIZED ANXIETY DISEASE[ICD9: 300.02] Nelly Carlos MD, [facility] CPT-4: 66377 01/27/2011 50437 EST. PATIENT, LEVEL III Diagnosis: Arm bruise[ICD9: 923.9] Nelly Carlos MD, [facility] CPT-4: 63057 01/26/2011 OFFICE VISIT, NEW - LEVEL 4 Diagnosis: DIARRHEA[ICD9: 787.91] Diagnosis: Elevated liver function tests[ICD9: 790.6] Diagnosis: Abdominal discomfort[ICD9: 789.00] Ale Carlos MD, [facility] CPT- 4: 10483 01/06/2011 Plan of Care Planned Activity Notes [...] to Dr. Yates for nail debridement. 05/18/2018 Patient Education: Patient Medication Summary Completed [...] discomfort. 04/13/2018 Appointment: Ale Carlos WPtel: [phone] [facility] (30 min) Complex 04/13/2018 Patient Education: Patient [...] GI upset. 02/08/2018 Appointment: Ale Carlos WPtel: [facility] (30 min) Complex 02/08/2018 Patient Education: Patient Medication Summary Completed 02/08/2018 Patient Education: Hypertension Completed 02/08/2018 Appointment: Nelly Keen WPtel: [facility]5 [phone] [place] (15 min) Moderate 02/02/2018 Visit Plan: Pamilgesvuio-vxjzzik-jp start trulance 3mg daily Dry mouth-biotene mouth spray 01/19/2018 [facility]ment: [phone] [place] (30 min) Complex 01/19/2018 Patient Education: Patient [...] concerns 01/12/2018 Appointment: Nelly Keen WPtel: [phone] [phone] (15 min) Moderate 01/12/2018 Patient Education: Patient Medication Summary Completed 01/12/2018 Visit Plan: Hypertension - well con arnoldoed [...] be helping his symptoms. 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 I have recommended that he is to eat 1/2 a sandwich with his ensure at bedtime. 01/05/2018 Appointment: Ale Carlos WPtel: [facility] (15 min) Moderate 01/05/2018 Patient Education: Patient Medication Summary Completed 01/05/2018 Appointment: [facility]el[phone] (30 min) Complex 01/04/2018 Visit Plan: [...] 11/03/2017 Care Plan: Referral Order SNOMED-CT : [id number] Pending 10/28/2017 Visit Plan: Constipation - uncontro [...] improving. 2017 Appointment: Ruchi Agee WPtel: [phone] [facility] (15 min) Moderate 2017 Patient Education: [...] size. 10/13/2017 Appointment: [facility]el[phone] ([facility] min) Complex 10/13/2017 Patient Education: [...] the medication. 09/26/2017 Appointment: Ale Carlos WPtel: [address] [place], [place] [address] (15 min) Moderate 09/26/2017 Patient Education: Patient Medication Summary Completed 09/26/2017 Appointment: Ale Carlos WPtel: [facility] (30 min) Complex 09/14/2017 Visit Plan: [...] the ER. 09/12/2017 Appointment: Ale Carlos WPtel: [facility] ([facility] min) Complex 09/12/2017 Patient Education: Patient Medication Summary Completed 09/12/2017 Visit Plan: Ongoing fatigue - persi stent - will check labs and treat as indicated - pt is to notify clinic if symptoms do not improve, if they worsen, or with any changes, questions, or concerns. 09/09/2017 Appointment: Ruchi Agee WPtel: [facility]5 [facility] (30 min) Complex 09/09/2017 Patient Education: Patient [...] at home. 08/17/2017 Appointment: Ale Carlos WPtel: [facility]3 [facility] (15 min) Moderate 08/17/2017 Patient Education: Patient [...] regular foods. 07/20/2017 Appointment: Ale Carlos WPtel: [facility]6 [facility] [place] (30 min) Complex 07/20/2017 Appointment: Ale Carlos WPtel: [facility]5 [facility] (30 min) Complex 07/20/2017 Patient Education: Patient Medication Summary Completed 07/20/2017 Appointment: Ale Carlos WPtel: [facility]5 [facility] (30 min) Complex 07/19/2017 Appointment: Ale Carlos WPtel: [facility]5 [facility] (15 min) Moderate 07/18/2017 Visit Plan: Constipation [...] this regimen. 07/01/2017 Appointment: Ruchi Agee WPtel: [facility] (30 min) Complex 07/01/2017 Appointment: Ruchi Agee WPtel: [address] [place], [place] [phone] (30 min) Complex 07/01/2017 Patient Education: Patient [...] current management. 06/21/2017 Appointment: Ale Carlos WPtel: [facility]5 [facility] (30 min) Complex 06/21/2017 Patient [...] 03/21/2017 Appointment: Ale Carlos WPtel: [address] [facility] (30 min) Complex 03/21/2017 Patient Education: Patient [...] allergy spray. 03/08/2017 Appointment: Nelly Keen WPtel: [facility]9 [facility] [[email or web address]] (30 min) Complex 03/08/2017 Patient Education: Patient [...] flu shot 01/25/2017 Appointment: Ale Carlos WPtel: [facility]9 [facility] (30 min) Complex 01/25/2017 Patient Education: [...] improving. 12/20/2016 Appointment: Ale Carlos WPtel: [phone] [facility] (30 min) Complex 12/20/2016 Patient Education: Patient Medication Summary Completed 12/20/2016 Patient Education: Hypertension Completed 12/20/2016 Appointment: Ruchi Agee WPtel: [facility]4 [address] - Annual Wellness Visit 12/03/2016 Visit [...] acutely worsen. 11/25/2016 Appointment: Ale Carlos WPtel: [facility] [address] (15 min) Moderate 11/25/2016 Patient Education: [...] have thrush. 11/18/2016 Appointment: Ale Carlos WPtel: [facility] [address] (15 min) Moderate 11/18/2016 Patient Education: [...] and namenda. labs [place] [facility] 08/23/2016 Appointment: Ale Carlos WPtel: [facility] [address] (30 min) Complex 08/23/2016 Patient Education: Patient [...] Ale Carlos WPtel: [facility] (30 min) Complex 04/26/2016 Patient Education: Patient Medication Summary Completed 04/26/2016 Visit Plan: Joint effusion - recomm ended drainage and referral to orthopedic surgeon for surgical debridement of bursa 02/17/2016 Appointment: Ale Carlos WPtel: [facility] [place] (30 min) Complex 02/17/2016 Patient Education: Patient Medication Summary Completed 02/17/2016 Visit Plan: Bursitis-right elbow-dr healy today in the office- increase anti inflammatories for the next 5 days as directed-call if symptoms do not resolve, swelling returns or new symptoms develop-patient verbalized understanding of plan. 02/09/2016 Appointment: Nelly Keen WPtel: [phone] [place] (30 min) Complex 02/09/2016 Patient [...] plan. 02/03/2016 Appointment: Nelly Keen WPtel: [phone] [phone] [place] (30 min) Complex 02/03/2016 Patient Education: Patient Medication Summary Completed 02/03/2016 Patient Education: Patient Medication Summary Completed 01/30/2016 Care Plan: Metabolic Due on Pending 01/30/2016 Visit Plan: Abdominal pain - nausea - Pt to have IV fluids at hospital 01/26/2016 Appointment: Ale Carlos WPtel: [facility]8 [facility] (30 min) Complex 01/26/2016 Patient [...] allergy spray. 01/21/2016 Appointment: Nelly Keen WPtel: [facility]5 [facility] [[email or web address]] (30 min) Complex 01/21/2016 Patient Education: Patient [...] of treatment. 09/02/2015 Appointment: Ale Carlos WPtel: [facility]5 [facility] (15 min) Moderate 09/02/2015 Patient [...] today 05/06/2015 Appointment: Ale [facility]Ptel[phone] (15 min) Moderate 05/06/2015 Patient Education: Patient Medication Summary Completed 05/06/2015 Patient Education: Hypertension Completed 05/06/2015 Care Plan: COMPLETE CBC AUTOMATED LOINC : 19712-6 Ordered 05/06/2015 Visit Plan: Hypertension - well [...] current medications. 03/05/2015 Appointment: Ale Carlos WPtel[phone] (30 min) Complex 03/05/2015 Patient Education: [...] -has improved. 12/04/2014 Appointment: Ale Carlos WPtel: [facility] Follow up 12/04/2014 Patient Education: Patient [...] Plan: CT ABD & PELV 1/> [facility] : 01492-3 Ordered 09/24/2014 Visit Plan: Hypertension - well [...] THAT HE SHOULD NOT BE DRIVING TO [place] 07/26/2014 Appointment: Sick 07/26/2014 Appointment: Sick 07/26/2014 [...] medication list. 07/10/2014 Appointment: Ale Carlos WPtel: [address] [place], [place] [phone] Follow up 07/10/2014 Patient Education: Patient Medication Summary Completed 07/10/2014 Patient Education: Hypertension Completed 07/10/2014 Appointment: Ale Carlos WPtel: [address] [place], [place] [phone] Follow up 06/20/2014 Appointment: Ale Carlos WPtel: [address] [place], [place] [phone] Follow up 06/10/2014 Visit Plan: Anxiety and [...] in blood pressure readings at home. Urinary vkiuwhwkn-XDQ-cypvdp flomax to bedtime Dizziness-stop hydrocodone and ativan [...] Ale Carlos WPtel: [facility]5 [facility] Sick 05/29/2014 Patient Education: Patient Medication Summary Completed 05/29/2014 Patient Education: Hypertension Completed 05/29/2014 Appointment: Ale Carlos WPtel: [facility] [address] Lab Draw 05/23/2014 Patient Education: Patient Medication Summary Completed 05/23/2014 Visit Plan: Pneumonia - Pt has been diagnosed with pneumonia by physical exam. A chest xray has been ordered as have antibiotics. The pt is aware of the diagnosis and the need for acute treatment of this illness. A kwnmffuf-rwbip-rpdhoza flonase nasal spray Hyponatremia-increase gatorade as directed 05/20/2014 Visit Plan: Pneumonia - Pt has been diagnosed with pneumonia by physical exam. A chest xray has been ordered as have antibiotics. The pt is aware of the diagnosis and the need for acute treatment of this illness. A nijzjokt-loehf-nteyoln flonase nasal spray Hyponatremia-increase gatorade as directed ADDENDUM: RECOMMEND PATIENT START ON ALBUTEROL NEBULIZER TREATMENTS EVERY 4 HOURS NEEDED FOR SHORTNESS OF BREATH/WHEEZING. DX SECONDARY PNEUMONIA FROM INFLUENZA, COUGH 05/20/2014 Patient Education: Patient Medication Summary Completed 05/20/2014 Appointment: Ale Carlos WPtel: [address] [facility] [place] Injection 03/26/2014 Patient Education: Patient Medication Summary Completed 03/26/2014 Visit Plan: Hypertension - well con arnoldoed -continue with no added salt diet. Pt [...] Dr. Merlos. 03/25/2014 Appointment: Ale Carlos WPtel: [address] [place], [place] [phone] Follow up 03/25/2014 Patient Education: Patient Medication Summary Completed 03/25/2014 Patient Education: Hypertension Completed 03/25/2014 Visit Plan: Zylbg-oqmzifntl-chzphkw laryngeal reflux-RX for protonix (patient is on plavix) and follow up in 1 month. Call if symptoms do not improve or if any worse Allergies-improved on flonase-continue as directed and call if symptoms return. 02/08/2014 Patient Education: Patient Medication Summary Completed 02/08/2014 Visit Plan: Hypertension - well con gómezlled - continue with current medications, continue with no added salt diet. Pt has been encouraged to exercise daily. The pt has been advised to call the office if there are any acute concerns about change in blood pressure readings at home. 12/24/2013 Appointment: Ale Carlos WPtel: [address] [place], [place] [phone] Follow up 12/24/2013 Patient Education: Patient Medication [...] portion size. 11/20/2013 Appointment: Ale Carlos WPtel: [facility] [place] [phone] Follow up 11/20/2013 Patient Education: Patient Medication Summary Completed 11/20/2013 Appointment: Ale Carlos WPtel: [address] [place], [place] [phone] Follow up 11/06/2013 Visit Plan: Weight loss-increase po rtions-add snacks in the morning and afternoon-follow up in 3 weeks for weight check Low sodium-check labs-restart gatorade Joyspot-bowsre-vbiqz labs and UA 10/30/2013 Patient Education: Patient Medication Summary Completed 10/30/2013 Appointment: Ale Carlos WPtel: [facility]5 [facility] Follow up 10/16/2013 Visit Plan: Sinusitis - [...] Merlos. 06/18/2013 Appointment: Ale Carlos WPtel: [address] [facility] Follow up 06/18/2013 Patient Education: Patient [...] concerns. 04/04/2013 Appointment: Ale Carlos WPtel: [phone] [facility] Follow up 04/04/2013 Patient Education: Patient [...] with report. 02/19/2013 Appointment: Ale Carlos WPtel: [facility] Follow up 02/19/2013 Patient Education: Patient [...] memory loss. 10/16/2012 Appointment: Ale Carlos WPtel: [address] [facility] Follow up 10/16/2012 Patient Education: Patient [...] colon return. 06/19/2012 Appointment: Ale Carlos WPtel: [address] [place], [place] [address] Follow up 06/19/2012 Patient Education: Patient Medication [...] bentyl. 03/20/2012 Appointment: [facility] Follow up 03/20/2012 Patient Education: Patient Medication Summary Completed 03/20/2012 Patient Education: High Blood Pressure: Essential Hypertension Completed 03/20/2012 Appointment: [facility]Ptel[facility] Follow up 02/22/2012 Visit Plan: Hypertension [...] needed. 01/24/2012 Appointment: Ale [facility]Ptel[facility] Follow up 01/24/2012 Patient Education: Patient [...] have the biopsy until okayed by his workplace relations adviser.. I anticipate it will be at least 4-6 months before he can be off of the plavix and aspirin for additonal procedures unless it is of extreme urgency. 12/20/2011 Appointment: Ale Carlos WPtel: [address] [place], [place] [phone] Follow up 12/20/2011 Patient Education: Patient Medication Summary Completed 12/20/2011 Patient Education: High Blood Pressure: Essential Hypertension Completed 12/20/2011 Appointment: Ale Carlos WPtel: [address] [place], [place] [phone] Other 12/13/2011 Visit Plan: Pain in groin post hear t cath with increased discomfort and increased size - will order an ultrasound for today. 12/09/2011 Appointment: Ale Carlos WPtel: [address] [place] [address] Other 12/09/2011 Patient Education: Patient Medication Summary [...] either medication. 08/25/2011 Appointment: Ale Carlos WPtel: [address] [place], [place] [phone] Other 08/25/2011 Patient Education: Patient Medication Summary [...] low doses. 06/23/2011 Appointment: Ale Carlos WPtel: [address] [place] [address] Other 06/23/2011 Patient Education: Patient Medication Summary Completed 06/23/2011 Patient Education: High Blood Pressure: Essential Hypertension Completed 06/23/2011 Appointment: Ale Carlos WPtel: [address] [place] [address] Other 04/26/2011 Visit Plan: Hypertension - well [...] seeds, etc. 04/19/2011 Appointment: Ale Carlos WPtel: [address] [place], [place] [phone] Other 04/19/2011 Patient Education: Patient Medication Summary Completed 04/19/2011 Patient Education: High Blood Pressure: Essential Hypertension Completed 04/19/2011 Patient Education: Diverticulosis Diet Completed 04/19/2011 Appointment: Nelly Keen WPtel: [address] [place], [place] [phone] Other 03/23/2011 Patient Education: Patient Medication Summary [...] Ale Carlos WPtel: [facility] Other 03/08/2011 Patient Education: Patient [...] a day. 03/01/2011 Appointment: Ale Carlos WPtel[facility] [place] Other 03/01/2011 Patient Education: Patient Medication Summary Completed 03/01/2011 Patient Education: High Blood Pressure: Essential Hypertension Completed 03/01/2011 [facility]ment: [phone] [phone] [place] Injection 02/25/2011 Patient Education: Patient Medication Summary Completed 02/25/2011 Appointment: Ale [facility]el[facility] [phone] [facility] [place] Injection 02/16/2011 Patient Education: Patient Medication Summary Completed 02/16/2011 Appointment: Ale [facility]el[facility] [phone] [facility] [place] Injection 02/09/2011 Patient Education: Patient Medication Summary Completed 02/09/2011 Appointment: Ale Carlos WPtel: [address] [place], [place] [phone] Follow up 02/02/2011 Visit Plan: Hydrocele and [...] Kenji Dash in [place]. Upon our conversation ijyk-ras-qnadk, Kenji vocalized concerns for his Dad's memory. He stated that he has noticed his father not being as quick in his cognitive functioning, he has noticed some concerns with driving as well. He states that he will discuss these concerns with his parents and other siblings. 02/01/2011 Appointment: Ale Carlos WPtel: [address] [place], [place] [phone] Other 02/01/2011 Patient Education: Patient Medication Summary [...] as needed. 01/27/2011 Appointment: Ale Carlos WPtel: [facility] [place] New Patient 01/27/2011 Patient Education: Patient Medication Summary Completed 01/27/2011 Visit Plan: Bruising/hematoma left arm-discussed natural and expected course of this diagnosis and to alert me if symptoms do not follow expected course or if any worse, Continue with ice/heat as needed for disc omfort. Call for any concerns. 01/26/2011 Appointment: Nelly Keen WPtel: [address] [place], [place] [phone] Other 01/26/2011 Patient Education: Patient Medication Summary [...] full course. 01/15/2011 Appointment: Nelly Keen WPtel: [address] [place], [place] [phone] [place] Other 01/15/2011 Patient Education: Patient Medication [...] 01/06/2011 Appointment: Ale Carlos [facility]Ptel[facility] [phone] [facility] [facility] Patient 01/06/2011 Patient Education: Patient [...] to Dr. Yates for nail debridement. . Constipation - unc ontrolled - pt [...] if the symptoms are not improving. . Irritable bowel sy ndrome with constipation [...] new treatments which can avoid rectal irritation. Discussed with Dr. Aaliyah pringle - He [...] night. Underweight - increase portion size. . Thrush -okay to re start the nystatin -take as directed- return if symptoms do not resolve or if any worse Cough-improving -you don't need to take the cough syrup routinely -only use as needed -call with any questions or concerns INCREASE GATORADE TO THREE TIMES PER DAY X 2 DAYS THEN TWICE DAILY stop doxycycline START CEFDINIR AND ZITHROMAX . Pneumonia - Pt has been diagnosed with pneumonia by physical exam. A chest xray has been ordered as have antibiotics. The pt is aware of the diagnosis and the need for acute treatment of this illness. Izqlgpwym-kysyt-gtlefeo flonase nasal spray Hyponatremia-increase gatorade as directed . Pneumonia - Pt has been diagnosed with pneumonia by physical exam. A chest xray has been ordered as have antibiotics. The pt is aware of the diagnosis and the need for acute treatment of this illness. Hqgqkemkn-xszgu-odwottn flonase nasal spray Hyponatremia-increase gatorade as directed [...] a prescriptio n of generic zyrtec to [facility] - if it is expensive get [...] have the biopsy until okayed by his workplace relations adviser.. I anticipate it will be at least 4-6 months before he can be off of the plavix and aspirin for additonal procedures unless it is of extreme urgency. CHECK LABS-CBC, CMP, UA WITH C&S IF INDICATED . Weight loss-increase portions-add snac ks in the morning and afternoon-follow up in 3 weeks for weight check Low sodium-check labs-restart gatorade Iwveoce-vpfvhf-xqyku labs and UA . Joint effusion - r ecommended drainage and referral to orthopedic surgeon for surgical debridement of bursa . Abdominal pain - n ausea - Pt to have IV fluids at hospital Nasal spray- use twi ce daily, one [...] improvement of his anxiety and memory loss. stop the multivitami n stop the calcium [...] be helping his symptoms. 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 I have recommended that he is to eat 1/2 a sandwich with his ensure at bedtime. . Bruising/hematoma left arm-discussed natural and expected [...] take lorazepam every [address] Carlos talked to Dr. Merlos today [...] to twice HTN-well controlled-no change in treatment sour candies - like kendrick jolly ranchers [...] improving. Anxiety -has improved. get Aspercreme from [employer] for your upper neck/upper back. lactaid pills - take before you drink milk or eat cheese or ice cream or yogurt use gas-ex one pill three times daily . Neck and upper back pain and gait unst eadiness - referral to [facility] for upper and low back pain and left arm pain and have gait eval. get Aspercreme from [employer] for your upper neck/upper back. Abdominal upset/cramping [...] HOME AND BRING BY THE OFFICE ON ZULEMA MORNING Dementia with anxiety - INCREASE ARICEPT [...] IN THE EVENING OF 01/15/11 Appointment [address] [place] [address] Carlos. Recommend Lactobacillus 1 orally [...] Kenji Dash in [place]. Upon our conversation bnjk-ymk-kvosg, Kenji vocalized concerns for his Dad's memory. He stated that he has noticed his father not being as quick in his cognitive functioning, he has noticed some concerns with driving as well. He states that he will discuss these concerns with his parents and other siblings. stop losartan - [facility] k blood pressure and heart [...] spray -it is over the counter . Myijjbgkilrv-spbrmno-vrqgtcm trulance 3mg daily Dry mouth-biotene mouth spray [...] as prescribed through the ER. decrease Protonix (p antoprazole) to ONE pill [...] of movement - stop the medication. . Lesgf-ikjphfvnk-ei spect laryngeal reflux-RX for protonix (patient is on plavix) and follow up in 1 month. Call if symptoms do not improve or if any worse Allergies-improved on flonase-continue as directed and call if symptoms return. Start on Reglan at a 1/2 [...] out rx for antibiotic nasal spray . Abdominal symptoms with elevated liver enzymes- [...] 3 days of the lactose free diet. ESCITALOPRAM (LEXAPR O) 5MG DAILY AT BEDTIME-THIS [...] in blood pressure readings at home. Urinary dxkelafhj-MOY-ffllyu flomax to bedtime Dizziness-stop hydrocodone and ativan [...] if symptoms of irritable colon return. . Chronic Depression and anxiety-improved over the past several weeks- the pt has symptoms of chronic anxiety and depression that have been fairly well controlled since the last office visit. The pt has expected periods of exacerbation with abatement of the symptoms with change in situational exposure. No change in current medications. INSTRUCTED PATIENT THAT [facility] . Record blood press ure and heart [...]
--- OUTSIDE RECORDS SUMMARY | 2019-07-16 08:19 | XMS REPORT | CCD ---
Author Author Kenneth Carlos Organization Ale Carlos MD, [facility] Address [address] [place] [address] Phone Care Team Providers Care Operations Architect Name Role Phone Ale Carlos PP Unavailable CCM Unavailable Summary Purpose Interface Exchange Insurance Providers Payer name Policy type / Coverage type Covered green party ID Effective Begin Date Effective End Date WPS Medicare Part B Medicare Part B [id number] Unknown Unknown [facility] icare Part B [id number] Unknown Unk nown Family history Runs in the family Diagnosis Age At Onset No Family Disease Entered N/A Mother Diagnosis Age At Onset No Family Disease Entered N/A Father Diagnosis Age At Onset Heart disease Unknown Social History Social History Element Codes Description Effective Dates Number of children Unknown 3 ([place], [place], [place]) 10/14/19 18 Living arrangements Unknown House 01/11/2011 Number of adults in household Unknown 2 01/11/2011 Education level Unknown Post-Graduate PHD in 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 Unknown Has never used illegal drugs 011 Allergies, Adverse Reactions, Alerts Substance Reaction Codes Entered Date Inactivated Date Status * NO KNOWN FOOD NAYE RGIES Unknown 04/19/2011 No Inactive Date Active Toradol RxNorm: 00992 03/05/2011 No Inactive Date Active Lisinopril cough, Unknown 03/25/2014 No In active Date Active Past Medical History Illness Codes Condition Status Onset Date Resolved Date Essential (primary) hypertension ICD-9: 401.1 ICD-10: I10 Active 03/21/2017 Unknown Dry mouth, unspecified ICD-9: 527.7 ICD-10: [...] hypertension ICD-9: 401.1 ICD-10: I10 03/21/2017 Active Dry mouth, unspecified ICD-9: 527.7 ICD-10: [...] Date Stop Date Sta tus Fill Instructions cetirizine 10 mg tablet RxNorm: 1230960 TABLET(S) 1 TABLET(S) PO DAILY TO TAKE I NSTEAD OF THE CLARITIN 03/13/2018 02/05/2019 Active amlodipine 10 mg tablet RxNorm: 392136 TAKE 1 TABLET BY MOUTH EVERY DAY 03/09/2018 10/04/2018 Ac tive fluticasone 50 mcg/a ctuation nasal spray,suspension RxNorm: 7428071 1 [place] NASAL BID 02/08/2018 No Stop Date Active fluticasone 50 mcg/a ctuation nasal spray,suspension RxNorm: 3822392 1 [place] NASAL BID 02/08/2018 02/07/2018 Inactive Trulance 3 mg tablet RxNorm: 4314252 1 Tablet(s) PO QAM 01/19/2018 07/17/2018 Active cefdinir 300 mg capsule RxNorm: 971730 1 Capsule(s) PO BID 12/28/2017 01/03/2018 Inactive cefdinir 300 mg capsule RxNorm: 420276 1 Capsule(s) PO BID 12/28/2017 12/27/2017 Inactive clopidogrel 75 mg ta blet RxNorm: 479030 TAKE 1 TABLET BY MOUT H EVERY DAY 12/26/2017 06/23/2018 Ac tive Namenda 10 mg tablet RxNorm: 335469 Tablet(s) TAKE 1 TABLET BY MOUTH TWICE D AILY. 12/15/2017 No Stop Date Active Robinul 1 mg tablet RxNorm: 725887 1/2 Tablet(s) PO AC & HS 12/12/2017 12/14/2017 Inactive Robinul 1 mg tablet RxNorm: 843095 1/2 Tablet(s) PO AC & HS 12/12/2017 12/11/2017 Inactive donepezil 10 mg tablet RxNorm: 459962 1 TABLET(S) PO DAILY TAKE 1 TABLET BY MO UTH ONCE DAILY 12/08/2017 12/11/2017 Inactive Patient requests 90 days supply lisinopril 20 mg tablet RxNorm: 991557 TAKE 1 TABLET DAILY 12/05/2017 01/11/2018 Inactive Cymbalta 30 mg capsu le,delayed release RxNorm: 732543 1 Capsule(s) PO daily 12/05/2017 12/04/2017 In active Cymbalta 30 mg capsu le,delayed release RxNorm: 097025 1 Capsule(s) PO daily 12/05/2017 12/05/2017 In active Trulance 3 mg tablet RxNorm: 3230566 1 Tablet(s) PO daily 11/14/2017 12/13/2017 Inactive Linzess 145 mcg capsule RxNorm: 2001327 1 Capsule(s) PO daily 10/28/2017 12/14/2017 Inactive Zantac 150 mg tablet RxNorm: 421373 1 Tablet(s) PO QAM 10/13/2017 01/04/2018 Inactive mirtazapine 15 mg ta blet RxNorm: 891514 TAKE ONE TABLET BY MO UTH EVERY DAY 09/29/2017 09/23/2018 Ac tive Mobic 15 mg tablet RxNorm: 257817 1/2 TABLET(S) DAILY 09/26/2017 12/19/2017 Inactive lisinopril 20 mg tablet RxNorm: 335631 1/2 Tablet(s) daily 09/13/2017 01/12/2018 Inactive amlodipine 10 mg tablet RxNorm: 889027 TAKE 1 TABLET BY MOUTH EVERY DAY 09/09/2017 03/07/2018 In active Reglan 5 mg tablet RxNorm: 919434 1/2 Tablet(s) PO TID may increase up to a full pill three times daily as needed for poor GI motility 07/20/2017 09/17/2017 Inactive Protonix 40 mg table t,delayed release RxNorm: 875918 1 Tablet(s) PO daily 07/04/2017 01/29/2018 In active clopidogrel 75 mg ta blet RxNorm: 503605 TAKE 1 TABLET BY MOUT H EVERY DAY 06/20/2017 12/16/2017 In active cetirizine 10 mg tablet RxNorm: 9073986 TABLET(S) 1 TABLET(S) PO DAILY TO TAKE I NSTEAD OF THE CLARITIN 06/06/2017 03/12/2018 Inactive lisinopril 20 mg tablet RxNorm: 010123 TAKE 1 TABLET DAILY 05/30/2017 09/12/2017 Inactive Mobic 15 mg tablet RxNorm: 594146 1/2 TABLET(S) DAILY 03/21/2017 09/16/2017 Inactive donepezil 10 mg tablet RxNorm: 860680 1 Tablet(s) PO daily TAKE 1 TABLET BY MO UTH ONCE DAILY 02/28/2017 11/24/2017 Inactive Patient requests 90 days supply Requip 0.25 mg tablet RxNorm: 223252 1 TABLET(S) PO BID 01/24/2017 01/04/2018 Inactive Patient requests 90 days supply clopidogrel 75 mg ta blet RxNorm: 864776 TAKE 1 TABLET BY MOUT H EVERY DAY 12/23/2016 06/19/2017 In active lisinopril 20 mg tablet RxNorm: 125629 TAKE 1 TABLET DAILY 11/26/2016 05/24/2017 Inactive Kenalog 40 mg/mL hugo pension for injection RxNorm: 9058413 Milliliter(s) Inj 11/25/2016 11/25/2016 In active cefdinir 300 mg capsule RxNorm: 390439 1 Capsule(s) PO BID 11/23/2016 11/27/2016 Inactive cefdinir 300 mg capsule RxNorm: 540874 1 Capsule(s) PO BID 11/23/2016 11/22/2016 Inactive nystatin 100,000 uni t/mL oral suspension RxNorm: 517657 5 Milliliter(s) PO QI D 11/18/2016 11/27/2016 In active azithromycin 250 mg tablet RxNorm: 256882 1 Tablet(s) PO UD 2 p ills on day #1 then one pill daily x 4 more days 11/18/2016 11/22/2016 Inactive Mobic 15 mg tablet RxNorm: 837447 1/2 TABLET(S) DAILY 10/28/2016 03/20/2017 Inactive citalopram 10 mg tablet RxNorm: 731694 TAKE 1 TABLET BY MOUTH EVERY DAY 10/07/2016 03/05/2017 In active Patient requests 90 days supply mirtazapine 15 mg ta blet RxNorm: 700157 TAKE ONE TABLET BY MO UTH EVERY DAY 10/06/2016 09/28/2017 In active mirtazapine 15 mg ta blet RxNorm: 734273 TAKE ONE TABLET BY MO UTH EVERY DAY 10/05/2016 10/05/2016 In active Patient requests 90 days supply amlodipine 10 mg tablet RxNorm: 637804 TAKE 1 TABLET BY MOUTH EVERY DAY 09/14/2016 01/24/2017 In active clopidogrel 75 mg ta blet RxNorm: 860044 TAKE 1 TABLET BY MOUT H EVERY DAY 06/28/2016 12/22/2016 In active lisinopril 20 mg tablet RxNorm: 035658 TAKE 1 TABLET DAILY 05/31/2016 11/25/2016 Inactive donepezil 10 mg tablet RxNorm: 192726 TAKE 1 TABLET BY MOUTH ONCE DAILY 05/11/2016 11/06/2016 In active donepezil 10 mg tablet RxNorm: 333587 TAKE 1 TABLET BY MOUTH ONCE DAILY 04/26/2016 02/28/2017 In active Mobic 15 mg tablet RxNorm: 368775 1/2 Tablet(s) daily 04/19/2016 10/15/2016 Inactive citalopram 10 mg tablet RxNorm: 841316 TAKE 1 TABLET BY MOUTH EVERY DAY 04/06/2016 04/25/2016 In active cetirizine 10 mg tablet RxNorm: 5031629 Tablet(s) 1 TABLET(S) PO DAILY TO TAKE I NSTEAD OF THE CLARITIN 03/30/2016 02/22/2017 Inactive amlodipine 10 mg tablet RxNorm: 333539 TAKE 1 TABLET BY MOUTH EVERY DAY 03/08/2016 01/24/2017 In active amlodipine 10 mg tablet RxNorm: 303485 1 Tablet(s) PO daily TAKE 1 TABLET BY MO UTH ONCE DAILY 03/03/2016 03/07/2016 Inactive Requip 0.25 mg tablet RxNorm: 943678 1 Tablet(s) PO BID 03/03/2016 09/13/2016 Inactive Mobic 15 mg tablet RxNorm: 897484 1 Tablet(s) daily not refilled on 02/23/2016 04/18/2016 In active cetirizine 10 mg tablet RxNorm: 0786542 1 TABLET(S) PO DAILY TO TAKE INSTEAD OF THE CLARITIN 02/19/2016 03/19/2016 Inactive lisinopril 20 mg tablet RxNorm: 062087 TAKE 1 TABLET DAILY 02/18/2016 05/17/2016 Inactive Namenda 10 mg tablet RxNorm: 016523 Tablet(s) TAKE 1 TABLET BY MOUTH TWICE D AILY. 02/17/2016 12/14/2017 Inactive lisinopril 20 mg tablet RxNorm: 573543 TAKE 1 TABLET DAILY 01/23/2016 01/24/2017 Inactive cetirizine 10 mg tablet RxNorm: 0232808 1 Tablet(s) PO daily to take instead of the claritin 01/21/2016 02/18/2016 Inactive amlodipine 10 mg tablet RxNorm: 700287 1 Tablet(s) PO daily TAKE 1 TABLET BY MO UTH ONCE DAILY 12/02/2015 03/02/2016 Inactive clopidogrel 75 mg ta blet RxNorm: 555346 TAKE 1 TABLET BY MOUT H EVERY DAY 11/25/2015 05/22/2016 In active Mobic 15 mg tablet RxNorm: 457762 TAKE(1/2) TABLET DAILY. 11/17/2015 02/22/2016 Inactive lisinopril 20 mg tablet RxNorm: 878304 TAKE 1 TABLET DAILY 11/17/2015 01/15/2016 Inactive Mobic 15 mg tablet RxNorm: 843825 1/2 Tablet(s) PO daily TAKE (1/2) TABLET DAILY. 11/12/2015 11/16/2015 Inactive citalopram 10 mg tablet RxNorm: 349614 TAKE 1 TABLET BY MOUTH EVERY DAY 10/27/2015 04/05/2016 In active Requip 0.25 mg tablet RxNorm: 090063 1 Tablet(s) PO BID 10/15/2015 02/11/2016 Inactive Requip 0.25 mg tablet RxNorm: 444038 1 Tablet(s) PO BID 10/15/2015 10/14/2015 Inactive mirtazapine 15 mg ta blet RxNorm: 793837 1 Tablet(s) PO daily 09/08/2015 10/01/2016 Inactive donepezil 10 mg tablet RxNorm: 836184 TAKE 1 TABLET DAILY 09/01/2015 04/25/2016 Inactive amlodipine 10 mg tablet RxNorm: 866706 1 Tablet(s) PO daily TAKE 1 TABLET BY MO UT ONCE DAILY 08/18/2015 12/01/2015 Inactive clopidogrel 75 mg ta blet RxNorm: 719963 1 Tablet(s) PO daily TAKE 1 TABLET DAILY 05/20/2015 11/24/2015 In active Mobic 15 mg tablet RxNorm: 217935 Tablet(s) TAKE (1/2) TABLET DAILY. 04/23/2015 10/19/2015 In active lisinopril 20 mg tablet RxNorm: 948156 TAKE 1 TABLET DAILY 04/22/2015 11/16/2015 Inactive Mobic 15 mg tablet RxNorm: 732544 TAKE (1/2) TABLET DAILY. 04/22/2015 04/22/2015 Inactive sulfamethoxazole 400 mg-trimethoprim 80 mg tablet RxNorm: 614268 1/2 Tablet(s) PO nancy y 03/11/2015 04/09/2015 Inactive Vesicare 5 mg tablet RxNorm: 684088 1 Tablet(s) PO 03/11/2015 05/09/2015 Inactive Protonix 40 mg table t,delayed release RxNorm: 033263 1 Tablet(s) PO BID 03/05/2015 09/30/2015 In active ok to change from [address] Archana rivera clopidogrel 75 mg ta blet RxNorm: 542830 1 Tablet(s) PO daily TAKE 1 TABLET DAILY 02/20/2015 05/19/2015 In active Namenda 10 mg tablet RxNorm: 904920 Tablet(s) TAKE 1 TABLET BY MOUTH TWICE D AILY. 01/22/2015 02/16/2016 Inactive amlodipine 10 mg tablet RxNorm: 670444 TAKE 1 TABLET BY MOUTH ONCE DAILY 01/14/2015 08/17/2015 In active donepezil 10 mg tablet RxNorm: 659594 TAKE 1 TABLET DAILY 01/06/2015 08/31/2015 Inactive Levsin 0.125 mg tablet RxNorm: 3825646 1 Tablet(s) PO QID as needed FOR ABD REJI N 11/05/2014 12/03/2014 In active Mobic 15 mg tablet RxNorm: 881086 1/2 Tablet(s) daily TAKE (1/2) TABLET DA MOIZ. 10/01/2014 04/21/2015 Inactive ciprofloxacin 500 mg tablet RxNorm: 336268 1 Tablet(s) PO BID 09/27/2014 10/01/2014 Inactive Flagyl 500 mg tablet RxNorm: 228447 1 Tablet(s) PO TID 09/27/2014 10/03/2014 Inactive take probiotic BID donepezil 10 mg tablet RxNorm: 938884 1/2 Tablet(s) PO BID 09/24/2014 01/05/2015 Inactive lisinopril 20 mg tablet RxNorm: 576026 TAKE 1 TABLET DAILY 09/05/2014 04/21/2015 Inactive amlodipine 10 mg tablet RxNorm: 742966 1 Tablet(s) PO daily 09/02/2014 12/30/2014 Inactive mirtazapine 15 mg ta blet RxNorm: 118939 1 Tablet(s) PO daily 08/28/2014 09/07/2015 Inactive donepezil 10 mg tablet RxNorm: 498693 1 Tablet(s) PO daily 08/28/2014 09/23/2014 Inactive citalopram 10 mg tablet RxNorm: 020464 1 Tablet(s) PO daily 08/28/2014 03/25/2015 Inactive citalopram 10 mg tablet RxNorm: 949541 1 Tablet(s) PO daily 08/07/2014 08/27/2014 Inactive citalopram 10 mg tablet RxNorm: 167065 1 Tablet(s) PO daily 08/07/2014 08/06/2014 Inactive Flagyl 500 mg tablet RxNorm: 269884 1 Tablet(s) PO TID 08/02/2014 08/01/2014 Inactive take probiotic BID Flagyl 500 mg tablet RxNorm: 930247 1 Tablet(s) PO TID 08/02/2014 08/08/2014 Inactive take probiotic BID tamsulosin ER 0.4 mg capsule,extended release 24 hr RxNorm: 619871 1 Capsule(s) PO QHS 06/06/2014 03/10/2015 Inactive TAKE AT BEDTIME escitalopram 5 mg ta blet RxNorm: 699518 1 Tablet(s) PO QPM 06/06/2014 08/06/2014 Inactive doxycycline hyclate 100 mg tablet RxNorm: 594400 1 Tablet(s) PO BID 05/31/2014 05/30/2014 Inactive doxycycline hyclate 100 mg tablet RxNorm: 097095 1 Tablet(s) PO BID 05/31/2014 06/06/2014 Inactive please deliver if not picked by 3pm Aricept 5 mg tablet RxNorm: 206678 1 Tablet(s) PO BID 05/29/2014 08/27/2014 Inactive losartan 50 mg tablet RxNorm: 698332 1/2 Tablet(s) PO daily 05/29/2014 12/28/2015 Inactive clopidogrel 75 mg ta blet RxNorm: 060685 1 Tablet(s) PO daily 05/27/2014 05/26/2014 Inactive Mobic 15 mg tablet RxNorm: 837820 TAKE (1/2) TABLET DAILY. 05/27/2014 09/30/2014 Inactive clopidogrel 75 mg ta blet RxNorm: 721840 TAKE 1 TABLET DAILY 05/27/2014 02/19/2015 Inactive Mobic 15 mg tablet RxNorm: 433716 1/2 Tablet(s) PO daily TAKE (1/2) TABLET DAILY. 05/27/2014 05/26/2014 Inactive prednisone 20 mg tablet RxNorm: 976769 1 Tablet(s) PO BID 05/21/2014 05/25/2014 Inactive albuterol sulfate 2. 5 mg/0.5 mL solution for nebulization RxNorm: 182233 1 inhale INH Q4H as needed 05/21/2014 09/01/2015 Inactive prednisone 20 mg tablet RxNorm: 448999 1 Tablet(s) PO BID 05/21/2014 05/20/2014 Inactive cefdinir 300 mg capsule RxNorm: 622421 1 Capsule(s) PO BID 05/20/2014 05/26/2014 Inactive Zithromax Z-Dequan 250 mg tablet RxNorm: 357727 1 Tablet(s) PO UD 05/20/2014 05/24/2014 Inactive zpack lorazepam 0.5 mg tablet RxNorm: 917423 1/2 to 1 Tablet(s) PO Q8 PRN as needed 04/30/2014 06/05/2014 In active Namenda 10 mg tablet RxNorm: 982711 TAKE 1 TABLET BY MOUTH TWICE DAILY. 04/15/2014 01/21/2015 In active Namenda 10 mg tablet RxNorm: 628447 1 Tablet(s) PO BID 04/15/2014 04/14/2014 Inactive losartan 50 mg tablet RxNorm: 117988 1 Tablet(s) PO daily 03/25/2014 05/28/2014 Inactive Protonix 40 mg table t,delayed release RxNorm: 105923 1 Tablet(s) PO QPM 03/21/2014 06/18/2014 In active ok to change from [address] Archana rivera fluticasone 50 mcg/a ctuation nasal spray,suspension RxNorm: 978281 1 [place] NASAL BID 03/04/2014 09/29/2014 Inactive Protonix 20 mg table t,delayed release RxNorm: 192568 1 Tablet(s) PO QPM 02/08/2014 03/20/2014 In active fluticasone 50 mcg/a ctuation nasal spray,suspension RxNorm: 998197 1 [place] NASAL BID 01/30/2014 03/03/2014 Inactive fluticasone 50 mcg/a ctuation nasal spray,suspension RxNorm: 223562 1 [place] NASAL BID 12/24/2013 01/29/2014 Inactive fluticasone 50 mcg/a ctuation nasal spray,suspension RxNorm: 746787 1 [place] NASAL BID 11/20/2013 12/23/2013 Inactive doxycycline hyclate 100 mg capsule RxNorm: 9698406 1 Capsule(s) PO BID 10/08/2013 10/17/2013 In active doxycycline hyclate 100 mg capsule RxNorm: 9379360 capsule oral 10/08/2013 10/29/2013 Inactive fluticasone 50 mcg/a ctuation nasal spray,suspension RxNorm: 851527 spray,suspension nasl 10/08/2013 11/19/2013 Inactive fluticasone 50 mcg/a ctuation nasal spray,suspension RxNorm: 791485 1 [place] NASAL BID Nasal spray- use twice daily, one spray per nostril twice daily, after 30 minutes, rinse out nose with saline spray. 10/08/2013 10/29/2013 Inactive mirtazapine 7.5 mg t ablet RxNorm: 312115 1/2 Tablet(s) PO daily 08/30/2013 08/27/2014 Inactive lorazepam 0.5 mg tablet RxNorm: 417378 1/2 Tablet(s) PO Q8 PRN 08/21/2013 04/29/2014 Inactive Aricept 5 mg tablet RxNorm: 657810 Tablet(s) PO TAKE 1 TABLET DAILY 08/21/2013 05/28/2014 In active Plavix 75 mg tablet RxNorm: 253356 Tablet(s) PO TAKE 1 TABLET DAILY 05/24/2013 12/04/2014 In active clopidogrel 75 mg ta blet RxNorm: 841482 tablet oral 05/24/2013 05/26/2014 Inactive Plavix 75 mg tablet RxNorm: 808218 1 Tablet(s) PO daily 05/23/2013 05/23/2013 Inactive meloxicam 15 mg tablet RxNorm: 643933 tablet oral 04/26/2013 03/25/2014 Inactive Mobic 15 mg tablet RxNorm: 318587 Tablet(s) PO TAKE (1/2) TABLET DAILY. 04/26/2013 05/26/2014 In active Mobic 15 mg tablet RxNorm: 779675 1/2 Tablet(s) PO daily 04/25/2013 04/25/2013 Inactive lisinopril 20 mg tablet RxNorm: 483361 1 Tablet(s) PO 04/04/2013 03/24/2014 Inactive finasteride 5 mg tablet RxNorm: 747803 tablet oral 03/22/2013 09/01/2015 Inactive lisinopril 10 mg tablet RxNorm: 806342 1 Tablet(s) PO daily 02/14/2013 04/03/2013 Inactive donepezil 5 mg tablet RxNorm: 605420 tablet oral 02/07/2013 12/24/2013 Inactive Influenza Virus Vacc ine 0.5 mL RxNorm: IM 02/06/2013 02/06/2013 Inactive Aricept 5 mg tablet RxNorm: 120983 1 Tablet(s) PO daily 02/06/2013 08/04/2013 Inactive tamsulosin ER 0.4 mg capsule,extended release 24 hr RxNorm: 624129 capsule,extended release 24hr oral 12/21/2012 06/05/2014 Inactive Plavix 75 mg tablet RxNorm: 299903 1 Tablet(s) PO daily 12/05/2012 05/03/2013 Inactive lorazepam 0.5 mg tablet RxNorm: 893102 1/2 Tablet(s) PO Q8 PRN 11/14/2012 08/20/2013 Inactive lisinopril 10 mg tablet RxNorm: 535180 1 Tablet(s) PO daily 08/08/2012 02/03/2013 Inactive Aricept 5 mg tablet RxNorm: 671856 1 Tablet(s) PO daily 08/08/2012 02/03/2013 Inactive Plavix 75 mg tablet RxNorm: 651913 1 Tablet(s) PO daily 07/04/2012 11/30/2012 Inactive Mobic 15 mg tablet RxNorm: 140033 1/2 Tablet(s) PO daily 03/20/2012 04/13/2013 Inactive Namenda 10 mg tablet RxNorm: 029040 1 Tablet(s) PO BID 02/22/2012 04/11/2014 Inactive lorazepam 0.5 mg tablet RxNorm: 063438 1/2 Tablet(s) PO Q8 PRN 02/02/2012 11/13/2012 Inactive lisinopril 10 mg tablet RxNorm: 784354 1 Tablet(s) PO daily 01/24/2012 07/21/2012 Inactive lisinopril 10 mg tablet RxNorm: 406070 1/2 Tablet(s) PO daily 12/20/2011 01/23/2012 Inactive Aricept 5 mg tablet RxNorm: 308023 1 Tablet(s) PO daily 07/14/2011 08/06/2012 Inactive Mobic 15 mg tablet RxNorm: 376935 1 Tablet(s) PO daily 07/14/2011 03/19/2012 Inactive Bentyl 10 mg Cap RxNorm: 755582 1 Capsule(s) PO daily one pill daily and every 6 hours if needed for bowel spasms. 06/23/2011 03/20/2012 Inactive amlodipine 5 mg Tab RxNorm: 682300 2 Tablet(s) PO daily 03/08/2011 12/08/2011 Inactive ZOSTAVAX 19,400 unit Sub-Q Soln RxNorm: 3498880 SQ 02/2502/25/2011 Inactive Pneumovax 23 25 mcg/ 0.5 mL Injection RxNorm: 143761 Milliliter(s) Inj 02/16/2011 02/16/2011 In active Influenza Virus Vacc ine 0.5 mL RxNorm: IM 02/09/2011 02/09/2011 Inactive Namenda 10 mg tablet RxNorm: 717135 1 Tablet(s) PO BID 02/01/2011 02/21/2012 Inactive dicyclomine 10 mg ca psule RxNorm: 256114 capsule oral 01/20/2011 10/29/2013 Inactive Namenda 5 mg tablet RxNorm: 297211 tablet oral 01/20/2011 12/24/2013 Inactive dicyclomine 20 mg ta blet RxNorm: 038232 tablet oral 01/15/2011 10/29/2013 Inactive Flagyl 500 mg Tab RxNorm: 348931 1 Tablet(s) PO TID 01/07/2011 01/06/2011 Inactive Cipro 500 mg Tab RxNorm: 663158 1 Tablet(s) PO BID 01/07/2011 06/23/2011 Inactive Cipro 500 mg Tab RxNorm: 551069 1 Tablet(s) PO BID 01/07/2011 01/06/2011 Inactive Flagyl 500 mg Tab RxNorm: 253975 1 Tablet(s) PO TID 01/07/2011 06/23/2011 Inactive metronidazole 500 mg tablet RxNorm: 452027 tablet oral 01/07/2011 12/24/2013 Inactive sulfamethoxazole 400 mg-trimethoprim 80 mg tablet RxNorm: 493641 tablet oral 12/24/2010 03/10/2015 In active mirtazapine 15 mg ta blet RxNorm: 569421 tablet oral 11/14/2010 12/24/2013 Inactive lisinopril 10 mg tablet RxNorm: 082958 tablet oral 11/14/2010 12/24/2013 Inactive doxycycline hyclate 100 mg tablet RxNorm: 632179 tablet oral 11/04/2010 12/24/2013 Inactive diphenoxylate-atropi ne 2.5 mg-0.025 mg tablet RxNorm: 8000177 tablet oral 11/03/2010 10/29/2013 In active ciprofloxacin 500 mg tablet RxNorm: 280629 tablet oral 11/01/2010 10/29/2013 Inactive Miralax 17 gram/dose oral powder RxNorm: 638342 17 Gram(s) PO daily No Start Date Active ranitidine 150 mg ta blet RxNorm: 340868 1 Tablet(s) PO daily No Start Date Active alprazolam 0.25 mg t ablet RxNorm: 354209 1 Tablet(s) PO BID PRN No Start Date Active simvastatin 20 mg ta blet RxNorm: 415339 1 Tablet(s) PO daily No Start Date Active Vesicare 5 mg tablet RxNorm: 085045 1 Tablet(s) PO daily No Start Date Active bicalutamide 50 mg t ablet RxNorm: 052784 1 Tablet(s) PO daily No Start Date Active Phenergan 6.25 mg/5 mL syrup RxNorm: 458713 5-10 Milliliter(s) PO QID as needed No Start Date Active sulfamethoxazole 500 mg Tab RxNorm: 783492 1/2 Tablet(s) PO daily No Start Date 12/24/2013 Inactive Plavix 75 mg Tab RxNorm: 201673 1 Tablet(s) PO daily No Start Date 01/26/2011 Inactive aspirin 81 mg Cap, D elayed Release RxNorm: 896980 1 Capsule(s) PO daily No Start Date 01/04/2018 Inactive Bentyl 10 mg capsule RxNorm: 049702 1 Capsule(s) PO QID as needed per dr. tylor pereira No Start Date 01/04/2018 Inactive famotidine 20 mg tablet RxNorm: 795525 1 Tablet(s) PO BID prescribed in ER No Start Date 10/13/2017 Inactive hydrocodone 5 mg-alexey taminophen 325 mg tablet RxNorm: 773748 1 Tablet(s) PO Q6 as needed No Start Date 06/05/2014 Inactive Proscar 5 mg Tab RxNorm: 529077 1 Tablet(s) PO daily No Start Date 09/01/2015 Inactive Plavix 75 mg tablet RxNorm: 043797 1 Tablet(s) PO daily No Start Date 07/03/2012 Inactive albuterol sulfate 2. 5 mg/0.5 mL solution for nebulization RxNorm: 150038 1 inhale INH Q4H as needed No Start Date 05/20/2014 Inactive metoclopramide 5 mg tablet RxNorm: 459125 1 Tablet(s) PO AC & H S prescribed in ER No Start Date 01/04/2018 Inactive amlodipine 5 mg Tab RxNorm: 972229 1 Tablet(s) PO daily No Start Date 03/07/2011 Inactive Namenda 5 mg Tab RxNorm: 860559 1 Tablet(s) PO daily No Start Date 06/23/2011 Inactive Zyrtec 10 mg tablet RxNorm: 9955000 1 Tablet(s) PO daily No Start Date 01/04/2018 Inactive Allergy Relief (ceti rizine) oral RxNorm: 408249 oral No S tart Date 12/19/2016 Inactive fluocinonide 0.05 % Ointment RxNorm: 737206 1 TOP BID PRN No Start Date 12/24/2013 Inactive amlodipine 5 mg tablet RxNorm: 013304 1 Tablet(s) PO daily No Start Date 09/01/2014 Inactive lisinopril Oral RxNorm: Oral No Start Date 12/08/2011 Inactive simvastatin 20 mg Tab RxNorm: 449607 1 Tablet(s) PO daily No Start Date 06/06/2014 Inactive Bentyl 20 mg Tab RxNorm: 622547 1 Tablet(s) PO Q6 PRN No Start Date 06/23/[address] Quintero Bentyl 10 mg Cap RxNorm: 469468 1 Capsule(s) PO BID No Start Date 06/22/2011 Inactive fluticasone 50 mcg/a ctuation nasal spray,suspension RxNorm: 5015364 1 [place] NASAL BID No Start Date 02/07/2018 Inactive Plavix 75 mg Tab RxNorm: 371457 1 Tablet(s) PO every other day No Start Date 08/24/2011 Inactive lorazepam 0.5 mg tablet RxNorm: 602209 1/2 Tablet(s) PO Q8 PRN No Start Date 02/01/2012 Inactive lisinopril 10 mg tablet RxNorm: 829291 1 Tablet(s) PO daily No Start Date 12/19/2011 Inactive Trulance 3 mg tablet RxNorm: 6436134 1 Tablet(s) PO QAM No Start Date 01/18/2018 Inactive Flomax 0.4 mg 24 hr Cap RxNorm: 171927 1 Capsule(s) PO daily No Start Date 05/28/2014 Inactive Aricept 5 mg Tab RxNorm: 702962 1 Tablet(s) PO daily No Start Date 07/13/2011 Inactive Vitamin D 1,000 unit Tab RxNorm: 564314 1 Tablet(s) PO daily No Start Date 01/04/2018 Inactive Levsin 0.125 mg tablet RxNorm: 3308190 1 Tablet(s) PO QID as needed FOR ABD REJI N No Start Date 11/04/2014 Inactive mirtazapine 7.5 mg t ablet RxNorm: 225133 1/2 Tablet(s) PO daily No Start Date 08/29/2013 Inactive Senior Vitamin Tab RxNorm: 1 Tablet(s) PO daily No Start Date 01/04/2018 Inactive Mobic 15 mg Tab RxNorm: 031363 1 Tablet(s) PO daily No Start Date 07/13/2011 Inactive Medication Administered Medication Codes Instruc tions Start Date Status Kenalog 40 mg/mL suspension for injection RxNorm: 1754490 Milliliter 11/25/2016 No longer Active Influenza Virus Vaccine 0.5 mL RxNorm: 02/06/2013 No longer Active ZOSTAVAX 19,400 unit Sub-Q Soln RxNo rm: [id number] 02/25/2011 No longer A ctive Pneumovax 23 25 mcg/0.5 mL Injection RxNorm: 289635 Milliliter 02/16/2011 No longer Active Influenza Virus [...] (primary) hypertension ICD -10: I10 ICD-9: 401.1 04/13/2018 Encounter for immunization ICD-10: Z 23 ICD-9: [...] For Visit Effective Dates Notes abdominal pain 04/13/2018 abdominal pain 02/08/2018 abdominal [...] Item Item Code Result Date Comp Metabolic [id number] NA 143 mEq/L 04/10/2018 Comp Metabolic Vot095 K 3.8 mEq/L 04/10/2018 Comp Metabolic Avx424 CL 105 mEq/L 04/10/2018 Comp Metabolic Bws476 CO2 30.0 mEq/L 04/10/2018 Comp Metabolic Kjb591 AN ION GAP 12 04/10/2018 Comp Metabolic Vri841 GL UCOSE 95 mg/dL 04/10/2018 Comp Metabolic Jjz586 Cr eat 1.2 mg/dL 04/10/2018 Comp Metabolic Odp016 eG FR 60 ml/min/1.73m2 04/10 Comp Metabolic Csw798 BUN 22 mg/dL 04/10/2018 Comp Metabolic Bbb988 B/ C Ratio 18.2 Ratio 04/10/2018 Comp Metabolic Tsl797 CA LCIUM 10.3 mg/dL 04/10/2018 Comp Metabolic Lkw073 AL K PHOS 113 U/L 04/10/2018 Comp Metabolic Yhl509 T(SGOT) 30 U/L 04/10/2018 Comp Metabolic Zgt703 AL T(SGPT) 19 U/L 04/10/2018 Comp Metabolic Gax971 BI LI T 0.4 mg/dL 04/10/2018 Comp Metabolic Hxz708 AL BUMIN 4.2 g/dL 04/10/2018 Comp Metabolic Rnn759 TP RO 6.5 g/dL 04/10/2018 Comp Metabolic Asv446 GL OB 2.3 g/dL 04/10/2018 Comp Metabolic Dmi090 A/ G Ratio 1.8 Ratio 04/10/2018 Comp Metabolic Qnt487 Os mo 288 mOsmo 04/10/2018 Lipid Ord30 CHOL 133 mg/dL 04/10/2018 Lipid Ord30 HDL 49.0 mg/dl 04/10/2018 Lipid Ord30 TRIG 68 mg/dL 04/10/2018 Lipid Ord30 LDL 70 mg/dL 04/10/2018 Lipid Ord30 C/HDL 2.7 Ratio 04/10/2018 C RAP A SC [id number] Strep A Negative 01/13/2018 Comp Metabolic Gqm651 NA 134 mEq/L 10/07/2017 Comp Metabolic Dni964 K 4.5 mEq/L 10/07/2017 Comp Metabolic Kuo589 CL 99 mEq/L 10/07/2017 Comp Metabolic Ksj295 CO2 31.0 mEq/L 10/07/2017 Comp Metabolic Pcj492 AN ION GAP 9 10/07/2017 Comp Metabolic Sum468 GL UCOSE 82 mg/dL 10/07/2017 Comp Metabolic Jqo037 Cr eat 1.0 mg/dL 10/07/2017 Comp Metabolic Tbc619 eG FR 77 ml/min/1.73m2 10/07 Comp Metabolic Xua132 BUN 16 mg/dL 10/07/2017 Comp Metabolic Ysx486 B/ C Ratio 16.3 Ratio 10/07/2017 Comp Metabolic Jjw916 CA LCIUM 9.6 mg/dL 10/07/2017 Comp Metabolic Lxz223 AL K PHOS 72 U/L 10/07/2017 Comp Metabolic Jwb019 T(SGOT) 21 U/L 10/07/2017 Comp Metabolic Bjd726 AL T(SGPT) 14 U/L 10/07/2017 Comp Metabolic Dtb518 BI LI T 0.4 mg/dL 10/07/2017 Comp Metabolic Lqw179 AL BUMIN 4.0 g/dL 10/07/2017 Comp Metabolic Qgk554 TP RO 5.7 g/dL 10/07/2017 Comp Metabolic Vrh698 GL OB 1.7 g/dL 10/07/2017 Comp Metabolic Eln100 A/ G Ratio 2.4 Ratio 10/07/2017 Comp Metabolic Bdt192 Os mo 269 mOsmo 10/07/2017 Lipid Ord30 CHOL 135 mg/dL 10/07/2017 Lipid Ord30 HDL 69.0 mg/dl 10/07/2017 Lipid Ord30 TRIG 52 mg/dL 10/07/2017 Lipid Ord30 LDL 56 mg/dL 10/07/2017 Lipid Ord30 C/HDL 2.0 Ratio 10/07/2017 %Hba1C Fnh202 % HbA1c 03926-8 5.5 % 09/12/2017 %Hba1C Pza543 Gluc Ave 111 mg/dL 09/12/2017 B12 Faf406 B12 816.00 pg/ml 09/10/2017 Test(s) Not Perfromed Test(s) Not Performed Test(s) Not Performed. See B elow: 09/09/2017 Test(s) Not Perfromed TEST NAME VIT D 09/09/2017 Test(s) Not Perfromed Rejection Reason NO PAYABLE DX 018 Test(s) Not Perfromed COMMENT PATIENT SAID HE WAS TAKING SUPPLEMENT 09/09/2017 Test(s) Not Perfromed Mechanical Detailer Tello Almeida 018 Lipid Ord30 CHOL 134 mg/dL 04/11/2017 Lipid Ord30 HDL 63.0 mg/dl 04/11/2017 Lipid Ord30 TRIG 45 mg/dL 04/11/2017 Lipid Ord30 LDL 62 mg/dL 04/11/2017 Lipid Ord30 C/HDL 2.1 Ratio 04/11/2017 Tsh Ord6 hTSH II 2.07 uIU/mL 04/11/2017 Body Fluid Crystals Source RIGHT ELBOW 6 Body Fluid Crystals CRYSTALS, BODY FLUID 02/18/2016 Uric Acid Body Fluid 690705 URIC ACID-FLUID 4.3 mg/dL 02/18/2016 Metabolic Ord15 [...] Ord15 CALCIUM 9.1 mg/dL 02/05/2016 Comp Metabolic Buu640 NA 129 mEq/L 10/08/2015 Comp Metabolic Clq172 K 4.7 mEq/L 10/08/2015 Comp Metabolic Zps971 CL 98 mEq/L 10/08/2015 Comp Metabolic Hsm249 CO2 28.0 mEq/L 10/08/2015 Comp Metabolic Vxh268 AN ION GAP 8 10/08/2015 Comp Metabolic Unu000 GL UCOSE 84 mg/dL 10/08/2015 Comp Metabolic Cgf106 Cr eat 1.3 mg/dL 10/08/2015 Comp Metabolic Qap777 eG FR 56 ml/min/1.73m2 10/07 Comp Metabolic Onh637 BUN 23 mg/dL 10/08/2015 Comp Metabolic Onv934 B/ C Ratio 17.8 Ratio 10/08/2015 Comp Metabolic Cxp928 CA LCIUM 9.3 mg/dL 10/08/2015 Comp Metabolic Iem462 AL K PHOS 68 U/L 10/08/2015 Comp Metabolic Vxe855 T(SGOT) 24 U/L 10/08/2015 Comp Metabolic Eno757 AL T(SGPT) 15 U/L 10/08/2015 Comp Metabolic Ecu365 BI LI T 0.5 mg/dL 10/08/2015 Comp Metabolic Pms568 AL BUMIN 4.0 g/dL 10/08/2015 Comp Metabolic Whd162 TP RO 5.9 g/dL 10/08/2015 Comp Metabolic Vyc217 GL OB 1.9 g/dL 10/08/2015 Comp Metabolic Bym288 A/ G Ratio 2.1 Ratio 10/08/2015 Comp Metabolic Wnd501 Os mo 262 mOsmo 10/08/2015 Lipid Ord30 [...] Ord30 C/HDL 2.3 Ratio 05/07/2015 Comp Metabolic Etn767 NA 132 mEq/L 05/07/2015 Comp Metabolic Tfk057 K 4.4 mEq/L 05/07/2015 Comp Metabolic Ntt611 CL 97 mEq/L 05/07/2015 Comp Metabolic Xwf431 CO2 30.0 mEq/L 05/07/2015 Comp Metabolic Nsv285 AN ION GAP 9 05/07/2015 Comp Metabolic Aix336 GL UCOSE 78 mg/dL 05/07/2015 Comp Metabolic Bwi692 Cr eat 1.2 mg/dL 05/07/2015 Comp Metabolic Kdt061 eG FR 60 ml/min/1.73m2 05/07 Comp Metabolic Hwk693 BUN 25 mg/dL 05/07/2015 Comp Metabolic Lud582 B/ C Ratio 20.3 Ratio 05/07/2015 Comp Metabolic Ikd291 CA LCIUM 9.6 mg/dL 05/07/2015 Comp Metabolic Ofl371 AL K PHOS 70 U/L 05/07/2015 Comp Metabolic Whi575 T(SGOT) 27 U/L 05/07/2015 Comp Metabolic Tan228 AL T(SGPT) 20 U/L 05/07/2015 Comp Metabolic Stp764 BI LI T 0.4 mg/dL 05/07/2015 Comp Metabolic Ssg433 AL BUMIN 4.0 g/dL 05/07/2015 Comp Metabolic Abk102 TP RO 5.8 g/dL 05/07/2015 Comp Metabolic Ulx888 GL OB 1.8 g/dL 05/07/2015 Comp Metabolic Vuh454 A/ G Ratio 2.3 Ratio 05/07/2015 Comp Metabolic Syh161 Os mo 268 mOsmo 05/07/2015 Cbc With [...] hTSH II 4.07 uIU/mL 05/07/2015 Comp Metabolic Glq434 NA 134 mEq/L 12/10/2014 Comp Metabolic Bjl927 K 4.8 mEq/L 12/10/2014 Comp Metabolic Pie164 CL 101 mEq/L 12/10/2014 Comp Metabolic Kqp571 CO2 30.0 mEq/L 12/10/2014 Comp Metabolic Hrp798 AN ION GAP 8 12/10/2014 Comp Metabolic Lti881 GL UCOSE 85 mg/dL 12/10/2014 Comp Metabolic Vlt687 Cr eat 1.2 mg/dL 12/10/2014 Comp Metabolic Ikc253 eG FR 65 ml/min/1.73m2 12/10 Comp Metabolic Hgd580 BUN 25 mg/dL 12/10/2014 Comp Metabolic Uqq409 B/ C Ratio 21.7 Ratio 12/10/2014 Comp Metabolic Fig651 CA LCIUM 9.5 mg/dL 12/10/2014 Comp Metabolic Epe368 AL K PHOS 76 U/L 12/10/2014 Comp Metabolic Eqr613 T(SGOT) 27 U/L 12/10/2014 Comp Metabolic Hin829 AL T(SGPT) 18 U/L 12/10/2014 Comp Metabolic Kix645 BI LI T 0.5 mg/dL 12/10/2014 Comp Metabolic Dhf316 AL BUMIN 4.1 g/dL 12/10/2014 Comp Metabolic Fpq140 TP RO 5.7 g/dL 12/10/2014 Comp Metabolic Plo188 GL OB 1.6 g/dL 12/10/2014 Comp Metabolic Zrh898 A/ G Ratio 2.6 Ratio 12/10/2014 Comp Metabolic Shv857 Os mo 272 mOsmo 12/10/2014 B12 Kfh998 B12 1011.00 pg/ml 12/10/2014 Lipid Ord30 CHOL [...] Differential Ord2 RDW 14.3 % 12/10/2014 CBC [id number] WBC 4.1 10e9/L 02/19/2013 CBC 1075698 RBC 4.39 10e12/L 02/19/2013 CBC 9671609 HGB 14.1 g/dL 02/19/2013 CBC 6086971 HCT DET 41.0 % 02/19/2013 CBC 9396573 MCV 93.4 fL 02/19/2013 CBC 6838931 MCH 32.1 pg 02/19/2013 CBC 3894955 MCHC 34.4 g/dL 02/19/2013 CBC 3828529 PLT 151 10e9/L 02/19/2013 CBC 2598027 MPV 11.8 fL 02/19/2013 CBC 6993655 YOVANNY % 63.2 % 02/19/2013 CBC 7227224 LY % 22.9 % 02/19/2013 CBC 2143388 MON % 11.5 % 02/19/2013 CBC 5390155 EOS % 2.2 % 02/19/2013 CBC 7762073 BASO % 0.2 % 02/19/2013 CBC 4815857 RDW 13.8 % 02/19/2013 CBC 3128293 ABS YOVANNY 2.59 10e9/L 02/19/2013 CBC 2766021 ABS LYMPH 0.94 10e9/L 02/19/2013 CBC 8289953 ABS MONO 0.47 10e9/L 02/19/2013 CBC 4371198 ABS EOS 0.09 10e9/L 02/19/2013 CBC 5182305 ABS BASO 0.01 10e9/L 02/19/2013 CBC 1727422 RDW-SD 46.0 fL 02/19/2013 TSH 5176271 TSH 2.094 uIU/ML 02/19/2013 FREE T4 6070612 FREE T4 1.18 NG/DL 02/19/2013 GFR CALC 5093252 GFR AA >60 ML/MIN 02/19/2013 GFR CALC 1928592 GFR NON -AA >60 ML/MIN 02/19/2013 CHEM 14 4384671 AST 30 U/L 02/19/2013 CHEM 14 4164751 ALT 19 IU/L 02/19/2013 CHEM 14 4695269 BUN 21 MG/DL 02/19/2013 CHEM 14 6853933 ALBUMIN 4.4 GM/DL 02/19/2013 CHEM 14 9603220 CHLORIDE 94 MMOL/L 02/19/2013 CHEM 14 7077626 BILI TOT 0.5 MG/DL 02/19/2013 CHEM 14 7191128 ALK PHOS 75 U/L 02/19/2013 CHEM 14 4594345 SODIUM 133 MMOL/L 02/19/2013 CHEM 14 5586323 CREATINI NE 1.07 MG/DL 02/19/2013 CHEM 14 3852300 CALCIUM 9.6 MG/DL 02/19/2013 CHEM 14 7643290 POTASSIUM 4.6 MMOL/L 02/19/2013 CHEM 14 4811055 PROT TOT 6.1 GM/DL 02/19/2013 CHEM 14 0181742 GLUCOSE 94 MG/DL 02/19/2013 CHEM 14 1338176 BICARB 31 MMOL/L 02/19/2013 CHEM 14 7853839 ANION GAP 8 MEQ/L 02/19/2013 UA 47294 Specific [place] 1.015 DateTime(Free Text in Aprima ) UA 79149 PH 6 DateTime(Free Text in Aprima ) UA 29213 GLUCOSE neg DateTime(Free Text in Aprima ) UA 54077 Protein neg DateTime(Free Text in Aprima ) UA 67365 Blood neg DateTime(Free Text in Aprima ) UA 84350 Bilirubin neg DateTime(Free Text in Aprima ) UA 45838 Ketones neg DateTime(Free Text in Aprima ) UA 52909 Urobilinogen neg DateTime(Free Text in Aprima ) UA 00331 Nitrite neg DateTime(Free Text in Aprima ) UA 71650 Leukocytes neg DateTime(Free Text in ) Review of Systems System Result Effective Dates Constitutional recent illness 04/13/2018 Constitutional No chills [...] retractions 10/16/2012 None Full Exam - General 1995 Respiratory respiratory effort/rhythm Overall: normal rate 10/16/2012 None Full Exam - General 1995 Cardiovascular auscultation of heart Overall: regular rate 10/16/2012 None Full Exam - General 1995 Cardiovascular [...] VACC PRSV FREE I NC ANTIG CPT-4: 46936 02/08/2018 URINALYSIS NONAUTO W /O SCOPE CPT-4: 57602 09/26/2017 ADMIN INFLUENZA VIRU S VAC CPT-4: G0008 01/25/2017 FLU VACC PRSV FREE I NC ANTIG CPT-4: 28905 01/25/2017 THER/PROPH/DIAG INJ SC/IM CPT-4: 04612 11/25/2016 TRIAMCINOLONE ACET I [place] NOS CPT-4: J3301 11/25/2016 DRAIN/INJECT JOINT/B URSA CPT-4: 18531 02/17/2016 IMMUNIZATION ADMIN CPT- 4: 51393 05/06/2015 PNEUMOCOCCAL VACC 13 TIFFANIE IM Formatting Model/CDA Sections, Assigned to/Rei Celia SNOMED CT: [id number] CPT-4: 18617Wmwpmfn 05/06/2015 ADMIN INFLUENZA VIRU S VAC CPT-4: G0008 02/19/2015 FLU VACC 4 TIFFANIE 3 YRS PLUS IM Formatting Model/CDA Sections, Assigned to SNOMED CT: [id number] CPT-4: 90111Dzjjnhs 02/19/2015 URINALYSIS NONAUTO W /O SCOPE CPT-4: 80989 05/23/2014 ADMIN INFLUENZA VIRU S VAC CPT-4: G0008 03/26/2014 FLU VAC NO PRSV 4 VA L 3 YRS+ Assigned to/Celia Minaya CPT-4: 09866Bpikmeh 03/26/2014 PRESCRIP TRANSMIT A ERX SY CPT-4: G8553 04/04/2013 ROUTINE VENIPUNCTURE CPT-4: 83240 02/19/2013 ADMIN INFLUENZA VIRU S VAC CPT-4: G0008 02/06/2013 FLULAVAL VACC, 3 YRS & >, IM CPT-4: Q2036 02/06/2013 66101 EST. PATIENT, LEVEL IV CPT-4: 26530 06/19/2012 PRESCRIP TRANSMIT A ERX SY CPT-4: G8553 06/19/2012 PRESCRIP TRANSMIT A ERX SY CPT-4: G8553 03/20/2012 PRESCRIP TRANSMIT A ERX SY CPT-4: G8553 06/23/2011 IMMUNIZATION ADMIN CPT- 4: 36963 02/25/2011 ZOSTER VACC SC (No lloyd stephens, patient supplied vaccine) CPT-4: 96060QI 02/25/2011 ADMIN PNEUMOCOCCAL V ACCINE SNOMED CT: 71741967 CPT-4: G0009 02/16/2011 Pneumococcal Polysac charide Vaccine, 23-Valent, Ad CPT-4: 98332 02/16/2011 ADMIN INFLUENZA VIRU S VAC CPT-4: G0008 02/09/2011 FLULAVAL VACC, 3 YRS & >, IM CPT-4: Q2036 02/09/2011 PRESCRIP TRANSMIT A ERX SY CPT-4: G8553 02/01/2011 URINALYSIS NONAUTO W /O SCOPE CPT-4: 91776 01/27/2011 Vital Signs Date Vital 04/13/2018 Blood Pressure 1: 128/58 Code: 8480-6 BMI: 21.0 Code: 93786-4 Heart Rate 1: 83 bpm Height: 5'9" SpO2: 94% Weight: 142 lbs 02/08/2018 Blood Pressure 1: 136/76 Code: 8480-6 BMI: 19.9 Code: 89192-4 Heart Rate 1: 78 bpm Height: 5'9" SpO2: 99% Weight: 135 lbs 01/19/2018 Blood Pressure 1: 114/78 Code: 8480-6 BMI: 19.9 Code: 15107-5 Heart Rate 1: 80 bpm Height: 5'9" SpO2: 98% Weight: 135 lbs 01/12/2018 Blood Pressure 1: 130/78 Code: 8480-6 BMI: 19.8 Code: 43849-5 Heart Rate 1: 85 bpm Height: 5'9" SpO2: 97% Weight: 134 lbs 01/05/2018 Blood Pressure 1: 122/70 Code: 8480-6 BMI: 19.6 Code: 58501-6 Heart Rate 1: 87 bpm Height: 5'9" SpO2: 96% Weight: 133 lbs 11/14/2017 Blood Pressure 1: 130/70 Code: 8480-6 BMI: 19.5 Code: 46867-2 Heart Rate 1: 75 bpm Height: 5'9" SpO2: 98% Weight: 132 lbs 2017 Blood Pressure 1: 116/70 Code: 8480-6 BMI: 19.5 Code: 96529-5 Heart Rate 1: 55 bpm Height: 5'9" SpO2: 95% Weight: 132 lbs 10/13/2017 Blood Pressure 1: 130/70 Code: 8480-6 BMI: 19.3 Code: 73134-7 Heart Rate 1: 67 bpm Height: 5'9" SpO2: 98% Weight: 131 lbs 09/26/2017 Blood Pressure 1: 126/70 Code: 8480-6 BMI: 19.1 Code: 83834-5 Heart Rate 1: 66 bpm Height: 5'9" SpO2: 100% Weight: 129 lbs 8 oz 09/12/2017 Blood Pressure 1: 120/70 Code: 8480-6 BMI: 19.5 Code: 55478-2 Heart Rate 1: 83 bpm Height: 5'9" SpO2: 99% Weight: 132 lbs 09/09/2017 Blood Pressure 1: 126/70 Code: 8480-6 BMI: 19.3 Code: 20263-0 Heart Rate 1: 80 bpm Height: 5'9" SpO2: 98% Weight: 131 lbs 08/17/2017 Blood Pressure 1: 130/74 Code: 8480-6 BMI: 19.6 Code: 14320-2 Heart Rate 1: 72 bpm Height: 5'9" SpO2: 98% Weight: 133 lbs 07/20/2017 Blood Pressure 1: 124/62 Code: 8480-6 BMI: 19.8 Code: 29742-8 Heart Rate 1: 65 bpm Height: 5'9" SpO2: 96% Weight: 134 lbs 07/01/2017 Blood Pressure 1: 134/64 Code: 8480-6 BMI: 21.0 Code: 87197-7 Height: 5'9" Weight: 142 lbs 06/21/2017 Blood Pressure 1: 142/80 Code: 8480-6 BMI: 21.0 Code: 54184-2 Heart Rate 1: 63 bpm Height: 5'9" SpO2: 98% Weight: 142 lbs 03/21/2017 Blood Pressure 1: 128/66 Code: 8480-6 BMI: 20.8 Code: 37796-6 Heart Rate 1: 61 bpm Height: 5'9" SpO2: 98% Weight: 141 lbs 03/08/2017 Blood Pressure 1: 134/68 Code: 8480-6 BMI: 20.4 Code: 17937-4 Heart Rate 1: 56 bpm Height: 5'9" SpO2: 99% Weight: 138 lbs 01/25/2017 Blood Pressure 1: 98/62 Code: 8480-6 BMI: 20.6 Code: 16223-3 Heart Rate 1: 71 bpm Height: 5'9" SpO2: 97% Weight: 139 lbs 8 oz 12/20/2016 Blood Pressure 1: 120/68 Code: 8480-6 BMI: 20.4 Code: 98283-4 Heart Rate 1: 70 bpm Height: 5'9" [...] 1: 120/60 Code: 8480-6 BMI: 20.7 Code: 62668-5 Heart Rate 1: 74 bpm Height: 5'9" SpO2: 95% Weight: 140 lbs 08/23/2016 Blood Pressure 1: 118/68 Code: 8480-6 BMI: 20.8 Code: 59836-4 Heart Rate 1: 54 bpm Height: 5'9" SpO2: 97% Weight: 141 lbs 04/26/2016 Blood Pressure 1: 108/64 Code: 8480-6 BMI: 21.0 Code: 35893-8 Heart Rate 1: 62 bpm Height: 5'9" SpO2: 95% Weight: 142 lbs 02/17/2016 Blood Pressure 1: 138/80 Code: 8480-6 BMI: 20.2 Code: 91175-0 Heart Rate 1: 76 bpm Height: 5'9" SpO2: 97% Weight: 137 lbs 02/09/2016 Blood Pressure 1: 140/76 Code: 8480-6 BMI: 20.2 Code: 93565-2 Heart Rate 1: 72 bpm Height: 5'9" SpO2: 96% Weight: 137 lbs 02/03/2016 Blood Pressure 1: 136/80 Code: 8480-6 BMI: 20.7 Code: 70755-5 Heart Rate 1: 86 bpm Height: 5'9" SpO2: 96% Weight: 140 lbs 01/26/2016 Blood Pressure 1: 144/78 Code: 8480-6 BMI: 20.7 Code: 12915-0 Heart Rate 1: 73 bpm Height: 5'9" SpO2: 97% Temperature: 37.0 (C ) / 98.6 (F) Weight: 140 lbs 01/21/2016 Blood Pressure 1: 116/62 Code: 8480-6 BMI: 20.4 Code: 56368-3 Heart Rate 1: 66 bpm Height: 5'9" SpO2: 97% Weight: 138 lbs 12/29/2015 Blood Pressure 1: 130/74 Code: 8480-6 BMI: 20.4 Code: 68331-9 Heart Rate 1: 51 bpm Height: 5'9" SpO2: 98% Weight: 138 lbs 09/02/2015 Blood Pressure 1: 126/60 Code: 8480-6 BMI: 22.3 Code: 57716-0 Heart Rate 1: 55 bpm Height: 5'9" SpO2: 96% Weight: 151 lbs 05/06/2015 Blood Pressure 1: 132/72 Code: 8480-6 BMI: 21.0 Code: 75188-3 Heart Rate 1: 63 bpm Height: 5'9" SpO2: 97% Weight: 142 lbs 03/05/2015 Blood Pressure 1: 130/68 Code: 8480-6 BMI: 21.0 Code: 63158-3 Heart Rate 1: 61 bpm Height: 5'9" SpO2: 96% Weight: 142 lbs 12/04/2014 Blood Pressure 1: 122/64 Code: 8480-6 BMI: 21.3 Code: 53569-0 Heart Rate 1: 72 bpm Height: 5'9" Weight: 144 lbs 09/24/2014 Blood Pressure 1: 142/80 Code: 8480-6 BMI: 20.4 Code: 66399-6 Heart Rate 1: 80 bpm Height: 5'9" Weight: 138 lbs 09/09/2014 Blood Pressure 1: 122/74 Code: 8480-6 BMI: 20.5 Code: 61469-5 Heart Rate 1: 64 bpm Height: 5'9" Weight: 139 lbs 07/26/2014 Blood Pressure 1: 136/82 Code: 8480-6 BMI: 20.4 Code: 64781-9 Heart Rate 1: 87 bpm Height: 5'9" SpO2: 92% Weight: 138 lbs 07/10/2014 Blood Pressure 1: 130/74 Code: 8480-6 BMI: 21.1 Code: 76215-2 Heart Rate 1: 64 bpm Height: 5'9" Weight: 143 lbs 06/06/2014 Blood Pressure 1: 142/88 Code: 8480-6 BMI: 20.4 Code: 95293-0 Heart Rate 1: 68 bpm Height: 5'9" Weight: 138 lbs 05/29/2014 Blood Pressure 1: 108/72 Code: 8480-6 BMI: 20.5 Code: 33608-9 Heart Rate 1: 60 bpm Height: 5'9" Weight: 139 lbs 05/20/2014 Blood Pressure 1: 140/72 Code: 8480-6 BMI: 21.6 Code: 89520-9 Heart Rate 1: 60 bpm Height: 5'9" SpO2: 98% Temperature: 36.2 (C ) / 97.2 (F) Weight: 146 lbs 03/25/2014 Blood Pressure 1: 128/60 Code: 8480-6 BMI: 21.4 Code: 29310-3 Heart Rate 1: 62 bpm Height: 5'9" Weight: 145 lbs 02/08/2014 Blood Pressure 1: 136/82 Code: 8480-6 BMI: 21.3 Code: 06929-2 Heart Rate 1: 68 bpm Height: 5'9" Weight: 144 lbs 12/24/2013 Blood Pressure 1: 122/76 Code: 8480-6 BMI: 21.6 Code: 50610-1 Heart Rate 1: 58 bpm Height: 5'9" Weight: 146 lbs 11/20/2013 Blood Pressure 1: 112/62 Code: 8480-6 BMI: 20.7 Code: 42834-6 Heart Rate 1: 56 bpm Height: 5'9" Weight: 140 lbs 10/30/2013 Blood Pressure 1: 130/68 Code: 8480-6 BMI: 20.1 Code: 00358-5 Heart Rate 1: 68 bpm Height: 5'9" SpO2: 96% Weight: 136 lbs 10/08/2013 Blood Pressure 1: 128/72 Code: 8480-6 BMI: 20.8 Code: 28522-6 Heart Rate 1: 60 bpm Height: 5'9" Temperature: 36.6 (C ) / 97.8 (F) Weight: 141 lbs 06/18/2013 Blood Pressure 1: 124/78 Code: 8480-6 BMI: 20.8 Code: 43692-3 Heart Rate 1: 64 bpm Height: 5'9" Weight: 141 lbs 04/04/2013 Blood Pressure 1: 138/60 Code: 8480-6 BMI: 20.8 Code: 68018-0 Heart Rate 1: 56 bpm Height: 5'9" Weight: 141 lbs 02/19/2013 Blood Pressure 1: 152/74 Code: 8480-6 BMI: 21.0 Code: 75245-0 Heart Rate 1: 60 bpm Height: 5'9" Weight: 142 lbs 10/16/2012 Blood Pressure 1: 122/70 Code: 8480-6 BMI: 20.8 Code: 49784-1 Heart Rate 1: 64 bpm Height: 5'9" Weight: 141 lbs 06/19/2012 Blood Pressure 1: 120/72 Code: 8480-6 BMI: 21.1 Code: 73399-4 Heart Rate 1: 60 bpm Height: 5'9" Weight: 143 lbs 03/20/2012 Blood Pressure 1: 114/76 Code: 8480-6 Heart Rate 1: 60 bpm Respiratory Rate: 16 bpm Weight: 143 lbs 01/24/2012 Blood Pressure 1: 134/70 Code: 8480-6 Heart Rate 1: 64 bpm Weight: 143 lbs 12/20/2011 Blood Pressure 1: 98/72 Code: 8480-6 BMI: 21.1 Code: 07666-4 Heart Rate 1: 60 bpm Height: 5'9" Respiratory Rate: 16 bpm Weight: 143 lbs 12/09/2011 Blood Pressure 1: 110/60 Code: 8480-6 Heart Rate 1: 66 bpm SpO2: 98% Weight: 141 lbs 08/25/2011 Blood Pressure 1: 112/70 Code: 8480-6 BMI: 20.8 Code: 22858-0 Heart Rate 1: 54 bpm Height: 5'9" Respiratory Rate: 16 bpm Weight: 141 lbs 06/23/2011 Blood Pressure 1: 126/64 Code: 8480-6 Heart Rate 1: 60 bpm Respiratory Rate: 16 bpm Weight: 142 lbs 04/19/2011 Blood Pressure 1: 124/64 Code: 8480-6 BMI: 21.1 Code: 14461-3 Heart Rate 1: 64 bpm Height: 5'9" Respiratory Rate: 16 bpm Weight: 143 lbs 03/23/2011 Blood Pressure 1: 137/71 Code: 8480-6 Heart Rate 1: 57 bpm 03/08/2011 Blood Pressure 1: 154/70 Code: 8480-6 BMI: 20.8 Code: 27641-7 Heart Rate 1: 60 bpm Height: 5'9" Respiratory Rate: 16 bpm Weight: 141 lbs 03/01/2011 Blood Pressure 1: 178/80 Code: 8480-6 Blood Pressure 2: 168/70 Code: 8480-6 BMI: 24.1 Code: 00130-9 Heart Rate 1: 60 bpm Height: 5'9" Respiratory Rate: 16 bpm Weight: 163 lbs 02/01/2011 Blood Pressure 1: 162/84 Code: 8480-6 Heart Rate 1: 60 bpm Respiratory Rate: 16 bpm Weight: 144 lbs 01/27/2011 Blood Pressure 1: 138/54 Code: 8480-6 BMI: 21.1 Code: 96931-2 Heart Rate 1: 68 bpm Height: 5'9" Respiratory Rate: 16 bpm Weight: 143 lbs 01/26/2011 Blood Pressure 1: 148/86 Code: 8480-6 BMI: 21.3 Code: 31061-2 Heart Rate 1: 74 bpm Height: 5'9" Weight: 144 lbs 01/15/2011 Blood Pressure 1: 136/76 Code: 8480-6 BMI: 20.5 Code: 82332-2 Heart Rate 1: 70 bpm Height: 5'10" Weight: 141 lbs 01/06/2011 Blood Pressure 1: 148/72 Code: 8480-6 BMI: 20.2 Code: 63223-2 Heart Rate 1: 72 bpm Height: 5'10" Respiratory Rate: 12 bpm Weight: 139 lbs Functional Status No Functional Status data History of Present Illness Symptom Name Status Resu lt Effective Date Notes Quality improving 04/13/2018 None Onset of Symptom [...] Findings Denies weakness 12/09/2011 None hypertension Quality [facility] onic 08/25/2011 None hypertension Onset and Resolution [...] Encounters Encounter Performer Loca tion Codes Date ([id number]) [id number] EST. P ATIENT, LEVEL III Diagnosis: Essential (primary) hypertension[ICD10: I10] Ale Carlos MD, C CPT-4: 57573 04/13/2018 ([id number]) 46015 EST. P ATIENT, LEVEL IV Diagnosis: Irritable bowel syndrome with constipation[ICD10: K58.1] Diagnosis: Other lesions of oral mucosa[ICD10: K13.79] Diagnosis: Dry mouth, unspecified[ICD10: R68.2] Diagnosis: Encounter for immunization[ICD10: Z23] Diagnosis: Essential (primary) hypertension[ICD10: I10] Ale Carlos MD, [facility] CPT-4: 11337 02/08/2018 ([id number]) 51843 EST. P ATIENT, LEVEL III Diagnosis: Slow transit constipation[ICD10: K59.01] Diagnosis: Dry mouth, unspecified[ICD10: R68.2] Nelly Carlos MD, [facility] CPT-4: 80342 01/19/2018 ([id number]) Miscellaneou s no charge Diagnosis: Acute pharyngitis, unspecified[ICD10: J02.9] Nelly Carlos MD, [facility] CPT-4: 99365 01/13/2018 ([id number]) 34358 EST. P ATIENT, LEVEL III Diagnosis: Candidal stomatitis[ICD10: B37.0] Diagnosis: Cough[ICD10: R05] Nelly Carlos MD, [facility] CPT-4: 14615 01/12/2018 ([id number]) 91040 EST. 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 P ATIENT, LEVEL IV Diagnosis: Irritable bowel syndrome with constipation[ICD10: K58.1] Diagnosis: Malignant neoplasm of prostate[ICD10: C61] Ale Carlos MD, [facility] CPT-4: 31332 11/14/2017 [id number] EST. PATIENT, LEVEL IV Diagnosis: Slow transit constipation[ICD10: K59.01] Diagnosis: Gastro-esophageal reflux disease without esophagitis[ICD10: K21.9] Ruchi Carlos MD, [facility] CPT-4: 21970 2017 ([id number]) 66785 EST. P ATIENT, LEVEL IV Diagnosis: Essential (primary) hypertension[ICD10: I10] Diagnosis: Slow transit constipation[ICD10: K59.01] Diagnosis: Underweight[ICD10: R63.6] Diagnosis: Gastro-esophageal reflux disease without esophagitis[ICD10: K21.9] Ale Carlos MD, [facility] CPT-4: 70722 10/13/2017 ([id number]) 42567 EST. P ATIENT, LEVEL IV Diagnosis: Slow transit constipation[ICD10: K59.01] Diagnosis: Gastroparesis[ICD10: K31.84] Diagnosis: Gastro-esophageal reflux disease without esophagitis[ICD10: K21.9] Diagnosis: Dysuria[ICD10: R30.0] Ale Carlos MD, [facility] CPT-4: 71610 09/26/2017 ([id number]) 07689 EST. P ATIENT, LEVEL IV Diagnosis: Other abnormal glucose[ICD10: R73.09] Diagnosis: Slow transit constipation[ICD10: K59.01] Ale Carlos MD, [facility] CPT-4: 21797 09/12/2017 96811 EST. PATIENT, LEVEL III Diagnosis: Other fatigue[ICD10: R53.83] Ruchi Carlos MD, [facility] CPT-4: 42195 09/09/2017 ([id number]) 19704 EST. P ATIENT, LEVEL IV Diagnosis: Slow transit constipation[ICD10: K59.01] Diagnosis: Irritable bowel syndrome with constipation[ICD10: K58.1] Diagnosis: Essential (primary) hypertension[ICD10: I10] Ale Carlos MD, [facility] CPT-4: 18210 08/17/2017 ([id number]) 84609 EST. P ATIENT, LEVEL III Diagnosis: Slow transit constipation[ICD10: K59.01] Diagnosis: Gastroparesis[ICD10: K31.84] Ale Carlos MD, [facility] CPT-4: 01394 07/20/2017 74047 EST. PATIENT, LEVEL III Diagnosis: Irritable bowel syndrome with constipation[ICD10: K58.1] Ruchi Carlos MD, [facility] CPT-4: 08906 07/01/2017 ([id number]) 71441 EST. P ATIENT, LEVEL IV Diagnosis: Essential (primary) hypertension[ICD10: I10] Diagnosis: Gas pain[ICD10: R14.1] Diagnosis: Generalized anxiety disorder[ICD10: F41.1] Diagnosis: Cervicalgia[ICD10: M54.2] Diagnosis: Pain in thoracic spine[ICD10: M54.6] Diagnosis: Unsteadiness on feet[ICD10: R26.81] Ale Carlos MD, [facility] CPT- 4: 60520 06/21/2017 ([id number]) 60429 EST. P ATIENT, LEVEL III Diagnosis: Essential (primary) hypertension[ICD10: I10] Ale Carlos MD, C CPT-4: 14200 03/21/2017 [id number] EST. PATIENT, LEVEL III Diagnosis: Other allergic rhinitis[ICD10: J30.89] Nelly Cralos MD, [facility] CPT-4: 90167 03/08/2017 ([id number]) 99042 EST. P ATIENT, LEVEL III Diagnosis: Encounter for immunization[ICD10: Z23] Diagnosis: Other hypotension[ICD10: I95.89] Ale Carlos MD, [facility] CPT-4: 17204 01/25/2017 ([id number]) 50375 EST. P ATIENT, LEVEL III Diagnosis: Essential (primary) hypertension[ICD10: I10] Diagnosis: Acute recurrent maxillary sinusitis[ICD10: J01.01] Ale Carlos MD, C CPT-4: 07200 12/20/2016 ([id number]) 32371 EST. P ATIENT, LEVEL III Diagnosis: Acute recurrent ethmoidal sinusitis[ICD10: J01.21] Ale Carlos MD, C CPT-4: 20399 12/01/2016 ([id number]) 23015 EST. P ATIENT, LEVEL III Diagnosis: Bronchitis, not specified as acute or chronic[ICD10: J40] Diagnosis: Cough[ICD10: R05] Ale Carlos MD, [facility] CPT-4: 93991 11/25/2016 ([id number]) 21160 EST. P ATIENT, LEVEL III Diagnosis: Cough[ICD10: R05] Diagnosis: Bronchitis, not specified as acute or chronic[ICD10: J40] Diagnosis: Candidal esophagitis[ICD10: B37.81] Ale Carlos MD, [facility] CPT- 4: 78393 11/18/2016 ([id number]) 16401 EST. P ATIENT, LEVEL IV Diagnosis: Essential (primary) hypertension[ICD10: I10] Diagnosis: Mild cognitive impairment, so stated[ICD10: G31.84] Ale Carlos MD, C CPT-4: 27104 08/23/2016 ([id number]) 58055 EST. P ATIENT, LEVEL III Diagnosis: Essential (primary) hypertension[ICD10: I10] Ale Carlos MD, [facility] CPT-4: 25664 04/26/2016 ([id number]) Miscellaneou s no charge Diagnosis: Olecranon bursitis, right elbow[ICD10: M70.21] Nelly Carlos MD, [facility] CPT-4: 74396 02/09/2016 ([id number]) 08291 EST. P ATIENT, LEVEL III Diagnosis: Olecranon bursitis, right elbow[ICD10: M70.21] Nelly Carlos MD, [facility] CPT-4: 19785 02/03/2016 ([id number]) 15365 EST. P ATIENT, LEVEL III Diagnosis: Generalized abdominal tenderness[ICD10: R10.817] Ale Carlos MD, [facility] CPT-4: 48873 01/26/2016 48123 EST. PATIENT, LEVEL IV Diagnosis: Other allergic rhinitis[ICD10: J30.89] Ruchi Carlos MD, [facility] CPT-4: 01481 01/21/2016 ([id number]) 20188 EST. P ATIENT, LEVEL IV Diagnosis: Essential (primary) hypertension[ICD10: I10] Diagnosis: Hypo-osmolality and hyponatremia[ICD10: E87.1] Ale Carlos MD, C CPT-4: 22299 12/29/2015 ([id number]) 75726 EST. P ATIENT, LEVEL IV Diagnosis: Essential (primary) hypertension[ICD10: I10] Diagnosis: Mild cognitive impairment, so stated[ICD10: G31.84] Ale Carlos MD, [facility] CPT-4: 52904 09/02/2015 ([id number]) 66049 EST. P ATIENT, LEVEL IV Diagnosis: Mixed hyperlipidemia[ICD10: E78.2] Diagnosis: Generalized anxiety disorder[ICD10: F41.1] Diagnosis: Mild cognitive impairment, so stated[ICD10: G31.84] Diagnosis: Essential (primary) hypertension[ICD10: I10] Diagnosis: Encounter for immunization[ICD10: Z23] Ale Carlos MD, [facility] CPT-4: 06527 05/06/2015 ([id number]) 14458 EST. 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 P ATIENT, LEVEL IV Diagnosis: ESSENTIAL HYPERTENSION[ICD9: 401.9] Diagnosis: GENERALIZED ANXIETY DISEASE[ICD9: 300.02] Diagnosis: MILD COGNITIVE IMPAIREMT[ICD9: 331.83] Diagnosis: IRRITABLE COLON[ICD9: 564.1] Ale Carlos MD, [facility] CPT-4: 62461 12/04/2014 ([id number]) 57665 EST. P ATIENT, LEVEL IV Diagnosis: Abdominal pain[ICD9: 789.00] Diagnosis: GENERALIZED ANXIETY DISEASE[ICD9: 300.02] Diagnosis: Hyponatremia[ICD9: 276.1] Diagnosis: ESSENTIAL HYPERTENSION[ICD9: 401.9] Nelly Carlos MD, [facility] CPT-4: 15737 09/24/2014 ([id number]) 14707 EST. P ATIENT, LEVEL IV Diagnosis: ESSENTIAL HYPERTENSION[ICD9: 401.9] Diagnosis: Osteoarthritis[ICD9: 715.90] Diagnosis: Mild cognitive impairment with memory loss[ICD9: 331.83] Ale Carlos MD, C CPT-4: 62924 09/09/2014 ([id number]) 97133 EST. P ATIENT, LEVEL III Diagnosis: GENERALIZED ANXIETY DISEASE[ICD9: 300.02] Diagnosis: Depression[ICD9: 311] Ale Carlos MD, [facility] CPT-4: 88558 07/26/2014 ([id number]) 74057 EST. P ATIENT, LEVEL IV Diagnosis: ESSENTIAL HYPERTENSION[ICD9: 401.9] Diagnosis: GENERALIZED ANXIETY DISEASE[ICD9: 300.02] Diagnosis: MILD COGNITIVE IMPAIREMT[ICD9: 331.83] Ale Carlos MD, [facility] CPT-4: 12601 07/10/2014 ([id number]) 48697 EST. P ATIENT, LEVEL IV Diagnosis: Dizziness[ICD9: 780.4] Diagnosis: GENERALIZED ANXIETY DISEASE[ICD9: 300.02] Diagnosis: Depression[ICD9: 311] Diagnosis: ESSENTIAL HYPERTENSION[ICD9: 401.9] Diagnosis: Urinary frequency[ICD9: 788.41] Ale Carlos MD, [facility] CPT-4: 62382 06/06/2014 ([id number]) 67439 EST. P ATIENT, LEVEL IV Diagnosis: ESSENTIAL HYPERTENSION[ICD9: 401.9] Diagnosis: GENERALIZED ANXIETY DISEASE[ICD9: 300.02] Diagnosis: Mild cognitive impairment with memory loss[ICD9: 331.83] Ale Carlos MD, C CPT-4: 90503 05/29/2014 ([id number]) 11556 EST. P ATIENT, LEVEL IV Diagnosis: Pneumonia[ICD9: 486] Diagnosis: COUGH[ICD9: 786.2] Diagnosis: Hyponatremia[ICD9: 276.1] Diagnosis: ALLERGIC RHINITIS[ICD9: 477.9] Ale Carlos MD, [facility] CPT-4: 80626 05/20/2014 ([id number]) 82349 EST. P ATIENT, LEVEL III Diagnosis: ESSENTIAL HYPERTENSION[ICD9: 401.9] Diagnosis: Cough[ICD9: 786.2] Ale Carlos MD, [facility] CPT-4: 02771 03/25/2014 ([id number]) 73108 EST. P ATIENT, LEVEL III Diagnosis: COUGH[ICD9: 786.2] Diagnosis: ALLERGIC RHINITIS[ICD9: 477.9] Nelly Carlos MD, [facility] CPT- 4: 40839 02/08/2014 ([id number]) 74897 EST. P ATIENT, LEVEL III Diagnosis: ESSENTIAL HYPERTENSION[ICD9: 401.9] Diagnosis: Nasal congestion[ICD9: 478.19] Ale Carlos MD, [facility] CPT-4: 96073 12/24/2013 ([id number]) 57789 EST. P ATIENT, LEVEL III Diagnosis: Seasonal allergies[ICD9: 477.9] Diagnosis: Nasal congestion[ICD9: 478.19] Diagnosis: ABNORMAL LOSS OF WEIGHT[ICD9: 783.21] Ale Carlos MD, [facility] CPT-4: 63088 11/20/2013 ([id number]) 67319 EST. P ATIENT, LEVEL III Diagnosis: ABNORMAL LOSS OF WEIGHT[ICD9: 783.21] Diagnosis: MALAISE AND FATIGUE[ICD9: 780.79] Diagnosis: Hyponatremia[ICD9: 276.1] Nelly Carlos MD, [facility] CPT- 4: 48410 10/30/2013 ([id number]) 92931 EST. P ATIENT, LEVEL III Diagnosis: Acute maxillary sinusitis[ICD9: 461.0] Diagnosis: COUGH[ICD9: 786.2] Ale Carlos MD, [facility] CPT-4: 38089 10/08/2013 ([id number]) 37698 EST. P ATIENT, LEVEL IV Diagnosis: ESSENTIAL HYPERTENSION[SNOMED: 18300374] Diagnosis: GENERALIZED ANXIETY DISEASE[ICD9: 300.02] Diagnosis: OSTEOARTH NOS-UNSPEC[ICD9: 715.90] Diagnosis: Coronary artery disease[ICD9: 414.00] Ale Carlos MD, [facility] CPT-4: 27313 06/18/2013 ([id number]) 81312 EST. P ATIENT, LEVEL III Diagnosis: ESSENTIAL HYPERTENSION[SNOMED: 52990102] Ale Carlos MD, [facility] CPT-4: 79426 04/04/2013 ([id number]) 94762 EST. P ATIENT, LEVEL IV Diagnosis: ESSENTIAL HYPERTENSION[SNOMED: 84452917] Diagnosis: Leukopenia[ICD9: 288.50] Diagnosis: Encounter for long-term (current) use of other medications[ICD9: V58.69] Ale Carlos MD, [facility] CPT-4: 85615 02/19/2013 ([id number]) 62013 EST. P ATIENT, LEVEL IV Diagnosis: ESSENTIAL HYPERTENSION[SNOMED: 39791892] Diagnosis: MILD COGNITIVE IMPAIREMT[ICD9: 331.83] Ale Carlos MD, [facility] CPT-4: 15610 10/16/2012 ([id number]) 37940 EST. P ATIENT, LEVEL IV Diagnosis: ESSENTIAL HYPERTENSION[SNOMED: 46635700] Diagnosis: GENERALIZED ANXIETY DISEASE[ICD9: 300.02] Diagnosis: IRRITABLE COLON[ICD9: 564.1] Ale Carlos MD, [facility] CPT-4: 17231 03/20/2012 90373 EST. PATIENT, LEVEL IV Diagnosis: ESSENTIAL HYPERTENSION[SNOMED: 26858488] Diagnosis: Osteoarthritis[ICD9: 715.90] Diagnosis: HYPERLIPIDEMIA[ICD9: 272.4] Ale Carlos MD, [facility] CPT-4: 30353 01/24/2012 48310 EST. PATIENT, LEVEL IV Diagnosis: ESSENTIAL HYPERTENSION[SNOMED: 61124979] Diagnosis: BPH W URINARY OBS/LUTS[ICD9: 600.01] Ale Carlos MD, [facility] CPT-4: 58537 12/20/2011 ([id number]) 13046 EST. P ATIENT, LEVEL III Diagnosis: Lump in the groin[ICD9: 789.30] [facility] CPT-4: 87118 12/09/2011 ([id number]) 77444 EST. P ATIENT, LEVEL IV Diagnosis: ESSENTIAL HYPERTENSION[SNOMED: 83928955] Diagnosis: Mild cognitive impairment[ICD9: 331.83] Ale Carlos MD, [facility] CPT-4: 99201 08/25/2011 ([id number]) 69653 EST. P ATIENT, LEVEL IV Diagnosis: ESSENTIAL HYPERTENSION[SNOMED: 14131303] Diagnosis: GENERALIZED ANXIETY DISEASE[ICD9: 300.02] Diagnosis: MILD COGNITIVE IMPAIREMT[ICD9: 331.83] Diagnosis: IRRITABLE COLON[ICD9: 564.1] Ale Carlos MD, [facility] CPT-4: 77068 06/23/2011 ([id number]) 61143 EST. 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 PATIENT, LEVEL I Diagnosis: ESSENTIAL HYPERTENSION[SNOMED: 98356347] Ale Carlos MD, [facility] CPT-4: 75672 03/23/2011 37228 EST. PATIENT, LEVEL III Diagnosis: ESSENTIAL HYPERTENSION[SNOMED: 93115031] Diagnosis: Laceration of finger, index[ICD9: 883.0] Ale Carlos MD, [facility] CPT-4: 60434 03/08/2011 24646 EST. PATIENT, LEVEL III Diagnosis: ESSENTIAL HYPERTENSION[SNOMED: 88576542] Diagnosis: Irritable bowel syndrome (IBS)[ICD9: 564.1] Ale Carlos MD, [facility] CPT-4: 33772 03/01/2011 36849 EST. PATIENT, LEVEL IV Diagnosis: Mild cognitive impairment with memory loss[ICD9: 331.83] Diagnosis: GENERALIZED ANXIETY DISEASE[ICD9: 300.02] Diagnosis: Bruising[ICD9: 924.9] Diagnosis: HYDROCELE[ICD9: 603.9] Ale Carlos MD, [facility] CPT-4: 71259 02/01/2011 08059 EST. PATIENT, LEVEL III Diagnosis: Testicular pain[ICD9: 608.9] Diagnosis: GENERALIZED ANXIETY DISEASE[ICD9: 300.02] Nelly Carlos MD, [facility] CPT-4: 73257 01/27/2011 93590 EST. PATIENT, LEVEL III Diagnosis: Arm bruise[ICD9: 923.9] [facility] CPT-4: 40937 01/26/2011 OFFICE VISIT, NEW - LEVEL 4 Diagnosis: DIARRHEA[ICD9: 787.91] Diagnosis: Elevated liver function tests[ICD9: 790.6] Diagnosis: Abdominal discomfort[ICD9: 789.00] [facility] CPT- 4: 90743 01/06/2011 Plan of Care Planned Activity Notes C odes Status Date Visit Plan: Hypertension - I talked to [...] mouth discomfort. 04/13/2018 Appointment: Ale Carlos WPtel: [phone] [facility] (30 min) Complex 04/13/2018 Patient Education: Patient [...] GI upset. 02/08/2018 Appointment: [phone] ([facility] [place] Complex 02/08/2018 Patient Education: Patient Medication Summary Completed 02/08/2018 Patient Education: Hypertension Completed 02/08/2018 Appointment: Nelly Keen WPtel: [phone] (15 min) Moderate 02/02/2018 Visit Plan: Bwcpoghsualk-kfgdjkr-ae start trulance 3mg daily Dry mouth-biotene mouth spray 01/19/2018 Appointment: Ale Carlos WPtel: [facility] (30 min) Complex 01/19/2018 Patient Education: Patient [...] or concerns 01/12/2018 Appointment: Nelly Keen WPtel: [phone] (15 min) Moderate 01/12/2018 Patient Education: Patient [...] be helping his symptoms. 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 I have recommended that he is to eat 1/2 a sandwich with his ensure at bedtime. 01/05/2018 Appointment: Ale Carlos WPtel: [facility]4 [facility] (15 min) Moderate 01/05/2018 Patient Education: Patient Medication Summary Completed 01/05/2018 Appointment: Ale Carlos WPtel: [facility]5 [facility] (30 min) Complex 01/04/2018 Visit Plan: Irritable [...] 11/03/2017 Care Plan: Referral Order SNOMED-CT : [id number] Pending 10/28/2017 Visit Plan: Constipation - uncontro [...] not improving. 2017 Appointment: Ruchi Agee WPtel: [facility]5 [facility] (15 min) Moderate 2017 Patient Education: [...] size. 10/13/2017 Appointment: Ale Carlos WPtel: [phone] [facility] (30 min) Complex 10/13/2017 Patient Education: Patient [...] the medication. 09/26/2017 Appointment: Ale Carlos WPtel: [facility]5 [facility] (15 min) Moderate 09/26/2017 Patient Education: Patient Medication Summary Completed 09/26/2017 Appointment: Ale Carlos WPtel: [address] [place], [place] [phone] (30 min) Complex 09/14/2017 Visit Plan: [...] the ER. 09/12/2017 Appointment: Ale Carlos WPtel: [address] [place], [place] [phone] (30 min) Complex 09/12/2017 Patient Education: Patient Medication Summary Completed 09/12/2017 Visit Plan: Ongoing fatigue - persi stent - will check labs and treat as indicated - pt is to notify clinic if symptoms do not improve, if they worsen, or with any changes, questions, or concerns. 09/09/2017 Appointment: Ruchi Agee WPtel: [address] [place], [place] [phone] (30 min) Complex 09/09/2017 Patient Education: Patient [...] at home. 08/17/2017 Appointment: Ale Carlos WPtel: [address] [place], [place] [phone] (15 min) Moderate 08/17/2017 Patient Education: Patient [...] foods. 07/20/2017 Appointment: Ale Carlos WPtel: [phone] [facility] [place] (30 min) Complex 07/20/2017 Appointment: Ale Carlos WPtel: [facility] [place] (30 min) Complex 07/20/2017 Patient Education: Patient Medication Summary Completed 07/20/2017 Appointment: Ale Carlos WPtel: [phone] [facility] [place] (30 min) Complex 07/19/2017 Appointment: Ale Carlos WPtel: [phone] [place] (15 min) Moderate 07/18/2017 Visit Plan: [...] this regimen. 07/01/2017 Appointment: Ruchi Agee [facility]Ptel: [phone] [place] (30 min) Complex 07/01/2017 Appointment: Ruchi Agee WPtel: [phone] [facility] [place] (30 min) Complex 07/01/2017 Patient Education: Patient Medication Summary Completed 07/01/2017 Visit Plan: Neck and upper back reji n and gait unsteadiness - referral to [facility] for upper and low back pain and left arm pain and have gait eval. get Aspercreme from [employer] for your upper neck/upper back. Abdominal upset/cramping - lactaid pills - take before you drink milk or eat cheese or ice cream or yogurt use gas-ex one pill three times daily Chronic anxiety - stable - continue with current management. 06/21/2017 Appointment: Ale Carlos WPtel: [facility] (30 min) Complex 06/21/2017 Patient Education: Patient [...] home. 03/21/2017 Appointment: Ale Carlos WPtel: [phone] [facility] (30 min) Complex 03/21/2017 Patient Education: Patient [...] allergy spray. 03/08/2017 Appointment: Nelly Keen WPtel: [phone] [place] (30 min) Complex 03/08/2017 Patient Education: [...] Carlos WPtel: [phone] [facility] (30 min) Complex 01/25/2017 Patient Education: [...] improving. 12/20/2016 Appointment: Ale Carlos WPtel: [phone] [facility]66[facility] (30 min) Complex 12/20/2016 Patient Education: Patient Medication Summary Completed 12/20/2016 Patient Education: Hypertension Completed 12/20/2016 Appointment: Ruchi Agee WPtel: [phone] - Annual Wellness Visit 12/03/2016 Visit [...] Appointment: Ale Carlos WPtel: [facility]3 [facility] (15 min) Moderate 11/25/2016 Patient [...] have thrush. 11/18/2016 Appointment: Ale Carlos WPtel: 101 [facility] (15 min) Moderate 11/18/2016 Patient Education: Patient [...] and namenda. labs to be done from [facility] 08/23/2016 Appointment: Ale Carlos WPtel: [phone] [place] (30 min) Complex 08/23/2016 Patient Education: [...] at home. 04/26/2016 Appointment: Ale Carlos WPtel: [phone] (30 min) Complex 04/26/2016 Patient Education: Patient Medication Summary Completed 04/26/2016 Visit Plan: Joint effusion - recomm ended drainage and referral to orthopedic surgeon for surgical debridement of bursa 02/17/2016 Appointment: Ale Carlos WPtel: [facility] [place] (30 min) Complex 02/17/2016 Patient Education: Patient Medication Summary Completed 02/17/2016 Visit Plan: Bursitis-right elbow-dr healy today in the office- increase anti inflammatories for the next 5 days as directed-call if symptoms do not resolve, swelling returns or new symptoms develop-patient verbalized understanding of plan. 02/09/2016 Appointment: Nelly Keen WPtel: [phone] [phone] [place] (30 min) Complex 02/09/2016 Patient [...] Appointment: Nelly Keen WPtel: [phone] (30 min) Complex 02/03/2016 Patient Education: Patient Medication Summary Completed 02/03/2016 Patient Education: Patient Medication Summary Completed 01/30/2016 Care Plan: Metabolic Due on Pending 01/30/2016 Visit Plan: Abdominal pain - nausea - Pt to have IV fluids at [facility] 01/26/2016 Appointment: Ale Carlos WPtel: [phone] [facility] (30 min) Complex 01/26/2016 Patient Education: Patient [...] spray. 01/21/2016 Appointment: Nelly Keen WPtel: [phone] [phone] (30 min) Complex 01/21/2016 Patient Education: [...] treatment. 09/02/2015 Appointment: Ale Carlos WPtel: [phone] [facility] (15 min) Moderate 09/02/2015 Patient Education: Patient [...] today 05/06/2015 Appointment: Ale Carlos WPtel: [phone] (15 min) Moderate 05/06/2015 Patient Education: Patient Medication Summary Completed 05/06/2015 Patient Education: Hypertension Completed 05/06/2015 Care Plan: COMPLETE CBC AUTOMATED LOINC : 93999-9 Ordered 05/06/2015 Visit Plan: Hypertension - well [...] medications. 03/05/2015 Appointment: Ale Carlos WPtel: [phone] (30 min) Complex 03/05/2015 Patient Education: Patient [...] improved. 12/04/2014 Appointment: Ale Carlos WPtel: 101 [facility] Follow up 12/04/2014 Patient Education: Patient Medication [...] Plan: CT ABD & PELV 1/> [facility] : 08629-6 Ordered 09/24/2014 Visit Plan: Hypertension - well [...] THAT HE SHOULD NOT BE DRIVING TO [place] 07/26/2014 Appointment: Sick 07/26/2014 Appointment: Sick 07/26/2014 [...] medication list. 07/10/2014 Appointment: Ale Carlos WPtel: [address] [place] [address] Follow up 07/10/2014 Patient Education: Patient Medication Summary Completed 07/10/2014 Patient Education: Hypertension Completed 07/10/2014 Appointment: Ale Carlos WPtel: [facility]5 [facility] Follow up 06/20/2014 Appointment: Ale Carlos WPtel: [address] [place], [place] [phone] Follow up 06/10/2014 Visit Plan: Anxiety and [...] in blood pressure readings at home. Urinary zegjduunv-STM-pwzbck flomax to bedtime Dizziness-stop hydrocodone and ativan [...] Appointment: Ale Carlos WPtel: [facility] [place] Sick 05/29/2014 Patient Education: Patient Medication Summary Completed 05/29/2014 Patient Education: Hypertension Completed 05/29/2014 Appointment: Ale Carlos WPtel: [facility] Lab Draw 05/23/2014 Patient Education: Patient Medication Summary Completed 05/23/2014 Visit Plan: Pneumonia - Pt has been diagnosed with pneumonia by physical exam. A chest xray has been ordered as have antibiotics. The pt is aware of the diagnosis and the need for acute treatment of this illness. A fopbykpb-usbtd-lvyfjez flonase nasal spray Hyponatremia-increase gatorade as directed 05/20/2014 Visit Plan: Pneumonia - Pt has been diagnosed with pneumonia by physical exam. A chest xray has been ordered as have antibiotics. The pt is aware of the diagnosis and the need for acute treatment of this illness. A xdmtmsko-emxlk-xjiaawc flonase nasal spray Hyponatremia-increase gatorade as directed ADDENDUM: RECOMMEND PATIENT START ON ALBUTEROL NEBULIZER TREATMENTS EVERY 4 HOURS NEEDED FOR SHORTNESS OF BREATH/WHEEZING. DX SECONDARY PNEUMONIA FROM INFLUENZA, COUGH 05/20/2014 Patient Education: Patient Medication Summary Completed 05/20/2014 Appointment: Ale Carlos WPtel: 101 [facility] Injection 03/26/2014 Patient Education: Patient Medication Summary [...] Merlos. 03/25/2014 Appointment: Ale Carlos WPtel: [phone] Follow up 03/25/2014 Patient Education: Patient Medication Summary Completed 03/25/2014 Patient Education: Hypertension Completed 03/25/2014 Visit Plan: Neiep-pjcblxmch-hchztjj laryngeal reflux-RX for protonix (patient is on [...] at home. 12/24/2013 Appointment: Ale Carlos WPtel: [address] [place], [place] [phone] Follow up 12/24/2013 Patient Education: Patient Medication [...] portion size. 11/20/2013 Appointment: Ale Carlos WPtel: [address] [place], [place] [phone] Follow up 11/20/2013 Patient Education: Patient Medication Summary Completed 11/20/2013 Appointment: Ale Carlos WPtel: [address] [place], [place] [phone] Follow up 11/06/2013 Visit Plan: Weight loss-increase po rtions-add snacks in the morning and afternoon-follow up in 3 weeks for weight check Low sodium-check labs-restart gatorade Qeawmkh-kknxol-itbjy labs and UA 10/30/2013 Patient Education: Patient Medication Summary Completed 10/30/2013 Appointment: Ale Carlos WPtel: [address] [place], [place] [phone] Follow up 10/16/2013 Visit Plan: Sinusitis - [...] Dr. Merlos. 06/18/2013 Appointment: Ale Carlos WPtel: [phone] Follow up 06/18/2013 Patient Education: Patient Medication [...] acute concerns. 04/04/2013 Appointment: Ale Carlos WPtel: [facility] Follow up 04/04/2013 Patient Education: Patient Medication [...] with report. 02/19/2013 Appointment: Ale Carlos WPtel: [phone] Follow up 02/19/2013 Patient Education: Patient Medication [...] memory loss. 10/16/2012 Appointment: Ale Carlos WPtel: [phone] Follow up 10/16/2012 Patient Education: Patient Medication [...] return. 06/19/2012 Appointment: Ale Carlos WPtel: [phone] Follow up 06/19/2012 Patient Education: Patient Medication [...] bentyl. 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 I anticipate it will be at least 4-6 months before he can be off of the plavix and aspirin for additonal procedures unless it is of extreme urgency. 12/20/2011 Appointment: Ale Carlos WPtel: [facility] Follow up 12/20/2011 Patient Education: Patient Medication Summary Completed 12/20/2011 Patient Education: High Blood Pressure: Essential Hypertension Completed 12/20/2011 Appointment: Ale Carlos WPtel: [address] [place], [place] [phone] Other 12/13/2011 Visit Plan: Pain in groin post hear t cath with increased discomfort and increased size - will order an ultrasound for today. 12/09/2011 Appointment: Ale Carlos WPtel: [facility] Other 12/09/2011 Patient Education: Patient Medication Summary [...] Appointment: Ale Carlos WPtel: [facility] Other 08/25/2011 Patient Education: Patient Medication Summary [...] low doses. 06/23/2011 Appointment: Ale Carlos WPtel: [address] [place], [place] [phone] Other 06/23/2011 Patient Education: Patient Medication Summary Completed 06/23/2011 Patient Education: High Blood Pressure: Essential Hypertension Completed 06/23/2011 Appointment: Ale Carlos WPtel: [address] [place], [place] [phone] [place] Other 04/26/2011 Visit Plan: Hypertension - [...] Appointment: Ale Carlos WPtel: [facility] Other 04/19/2011 Patient Education: Patient Medication Summary Completed 04/19/2011 Patient Education: High Blood Pressure: Essential Hypertension Completed 04/19/2011 Patient Education: Diverticulosis Diet Completed 04/19/2011 Appointment: Nelly Keen WPtel: [phone] Other 03/23/2011 Patient Education: Patient Medication Summary [...] Appointment: Ale Carlos WPtel: [facility] Other 03/08/2011 Patient Education: Patient [...] day. 03/01/2011 Appointment: Ale Carlos [facility]Ptel[phone] [place] Other 03/01/2011 Patient Education: Patient Medication Summary Completed 03/01/2011 Patient Education: High Blood Pressure: Essential Hypertension Completed 03/01/2011 Appointment: Nelly Keen WPtel: [phone] [phone] [place] Injection 02/25/2011 Patient Education: Patient Medication Summary Completed 02/25/2011 Appointment: Ale Carlos [facility]el[phone] [place] Injection 02/16/2011 Patient Education: Patient Medication Summary Completed 02/16/2011 Appointment: Ale Carlos [facility]Ptel[phone] [place] Injection 02/09/2011 Patient Education: Patient Medication Summary Completed 02/09/2011 Appointment: Ale Carlos [facility]Ptel[phone] [place] Follow up 02/02/2011 Visit Plan: Hydrocele [...] with his son - Kenji Dash in [place]. Upon our conversation [id number], Kenji vocalized concerns for his Dad's memory. He stated that he has noticed his father not being as quick in his cognitive functioning, he has noticed some concerns with driving as well. He states that he will discuss these concerns with his parents and other siblings. 02/01/2011 Appointment: Ale Carlos WPtel: [facility] Other 02/01/2011 Patient Education: Patient Medication Summary [...] as needed. 01/27/2011 Appointment: Ale Carlos WPtel: [address] [place], [place] [phone] [place] New Patient 01/27/2011 Patient Education: Patient Medication Summary Completed 01/27/2011 Visit Plan: Bruising/hematoma left arm-discussed natural and expected course of this diagnosis and to alert me if symptoms do not follow expected course or if any worse, Continue with ice/heat as needed for disc omfort. Call for any concerns. 01/26/2011 Appointment: Nelly Keen WPtel: [phone] Other 01/26/2011 Patient Education: Patient Medication Summary [...] OF 01/15/11 01/15/2011 Appointment: [phone] Other 01/15/2011 Patient Education: Patient Medication Summary [...] free diet. 01/06/2011 Appointment: Ale Carlos [facility]Ptel: [phone] New Patient 01/06/2011 Patient Education: Patient Medication Summary Completed 01/06/2011 Referral: External, Ordering Provider Referral Relationship Instructions Comment . Hypertension - wel l controlled at [...] needed -call with any questions or concerns Discussed with Dr. Aaliyah pringle - He [...] night. Underweight - increase portion size. . Irritable bowel sy ndrome with constipation [...] orthopedic surgeon for surgical debridement of bursa stop the cefuroxime - start on azithromycin [...] be helping his symptoms. 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 I have recommended that he is [...] and namenda. labs to be done from [facility] call the office in 2 weeks [...] controlled-no change in treatment . Hypertension - wel l controlled - [...] the lactose free diet. get Aspercreme from [facility] for your upper neck/upper back. lactaid pills - take before you drink milk or eat cheese or ice cream or yogurt use gas-ex one pill three times daily . Neck and upper back pain and gait unst eadiness - referral to [facility] for upper and low back pain and left arm pain and have gait eval. get Aspercreme from [facility] for your upper neck/upper back. Abdominal upset/cramping - lactaid pills - take before you drink milk or eat cheese or ice cream or yogurt use gas-ex one pill three times daily Chronic anxiety - stable - continue with current management. . Rihcs-ndswasqsp-jn spect laryngeal reflux-RX for protonix (patient is on plavix) and follow up in 1 month. Call if symptoms do not improve or if any worse Allergies-improved on flonase-continue as directed and call if symptoms return. stop losartan - [facility] blood pressure and heart rate [...] spray -it is over the counter . Eivojsnnakpv-svfgvwh-qfausjy trulance 3mg daily Dry mouth-biotene mouth spray [...] Advance your diet back to regular foods. Blood pressure check today in the office-improving. . Pain in groin post heart cath with increased discomfort and increased size - will order an ultrasound for today. . Ethmoid sinusitis - check sinus xray - if positive will call out rx for antibiotic nasal spray stop the Cetirizine as this may be [...] in your mouth discomfort. . Hypertension - unc ontrolled - the [...] two times a day. . 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 I anticipate it will be at least 4-6 months before he can be off of the plavix and aspirin for additonal procedures unless it is of extreme urgency. CHECK LABS-CBC, CMP, UA WITH C&S IF INDICATED . Weight loss-increase portions-add snac ks in the morning and afternoon-follow up in 3 weeks for weight check Low sodium-check labs-restart gatorade Ogbvjlu-szkkaz-dzgit labs and UA Nasal spray- use twi [...] needed for discomfort. Call for any concerns. for now - keep on e [...] blood pressure readings at home. Increase your loraze anmol to 1/2 tablet [...] lorazepam every 8 hours as needed. INCREASE YOUR MELOXI CAM (MOBIC) [...] need for acute treatment of this illness. Dwmnenaej-bzkqw-bacluch flonase nasal spray Hyponatremia-increase gatorade as directed . Pneumonia - Pt has been diagnosed with pneumonia by physical exam. A chest xray has been ordered as have antibiotics. The pt is aware of the diagnosis and the need for acute treatment of this illness. Zlkihxyyb-xbjds-vaqdcvd flonase nasal spray Hyponatremia-increase gatorade as directed ADDENDUM: RECOMMEND PATIENT START ON ALBUTEROL NEBULIZER TREATMENTS EVERY 4 HOURS NEEDED FOR SHORTNESS OF BREATH/WHEEZING. DX SECONDARY PNEUMONIA FROM INFLUENZA, COUGH pt has been advised to use THE [...] with increase in protein and portion size. Appointment in [address] [place] [address] Carlos. Recommend Lactobacillus 1 orally [...] report. Finish antibiotics for full course. . Nocturia-defer daina atment to Dr. Quintero. Continue with proscar and flomax. Return to follow up with Dr. Quintero on Tuesday as scheduled. Call if unable to void, fever, other concerns, etc. Abdominal bloating, gas-recommend lactobacillus 1 po twice daily while on antibiotics. Diarrhea-resolved per patient report. Finish antibiotics for full course. PT ADMITTED TO HOSPITAL IN THE EVENING OF 01/15/11 INCREASE ARICEPT (DO NEPEZIL) TO 5MG TAKEN [...] HOLD THE SIMVASTATIN X 3 WEEKS . Hydrocele and vari cocele- Recommend wearing [...] with his son - Kenji Dash in [place]. Upon our conversation vgqo-ebt-pyxit, Kenji vocalized concerns for his Dad's memory. He stated that he has noticed his father not being as quick in his cognitive functioning, he has noticed some concerns with driving as well. He states that he will discuss these concerns with his parents and other siblings. . Hypertension - wel l controlled - [...] THAT HE SHOULD NOT BE DRIVING TO [place] Pt is to try 1/2 pil l [...] in blood pressure readings at home. Urinary lbvuvyzkl-JBA-jebyrh flomax to bedtime Dizziness-stop hydrocodone and ativan [...] weeks, then use as needed. . Hypertension - wel l [...]
--- OUTSIDE RECORDS SUMMARY | 2019-07-16 08:24 | XMS REPORT | CCD ---
Author Author Kenneth Carlos Organization Ale Carlos MD, [facility] Address [address] [place] [address] Phone Care Team Providers Care Cigar Patcher Name Role Phone Ale Carlos PP Unavailable CCM Unavailable Summary Purpose Interface Exchange Insurance Providers Payer name Policy type / Coverage type Covered republican ID Effective Begin Date Effective End Date WPS Medicare Part B Medicare Part B [id number] Unknown Unknown [facility] icare Part B [id number] Unknown Unk nown Family history Runs in the family Diagnosis Age At Onset No Family Disease Entered N/A Mother Diagnosis Age At Onset No Family Disease Entered N/A Father Diagnosis Age At Onset Heart disease Unknown Social History Social History Element Codes Description Effective Dates Number of children Unknown 3 ([place], [place], [place]) 10/14/19 18 Living arrangements Unknown House 01/11/2011 Number of adults in household Unknown 2 01/11/2011 Education level Unknown Post-Graduate PHD in chemistry 01/11/2011 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 Unknown Has never used illegal drugs 011 Allergies, Adverse Reactions, Alerts Substance Reaction Codes Entered Date Inactivated Date Status * NO KNOWN FOOD NAYE RGIES Unknown 04/19/2011 No Inactive Date Active Toradol RxNorm: 07463 03/05/2011 No Inactive Date Active Lisinopril cough, Unknown 03/25/2014 No In active Date Active Past Medical History Illness Codes Condition Status Onset Date Resolved Date Dry mouth, unspecified ICD-9: 527.7 ICD-10: R68.2 [...] Active 11/18/2016 Unknown Essential (primary) hypertension ICD-9: 401.1 ICD-10: I10 Active 03/21/2017 Unknown Generalized anxiety disorder ICD-9: 300.02 ICD-10: [...] Condition Codes Effectiv e Dates Condition Status Dry mouth, unspecified ICD-9: 527.7 ICD-10: R68.2 [...] R05 11/18/2016 Active Essential (primary) hypertension ICD-9: 401.1 ICD-10: I10 03/21/2017 Active Generalized anxiety disorder ICD-9: 300.02 ICD-10: [...] Fill Instructions amlodipine 10 mg tablet RxNorm: 991659 TAKE 1 TABLET BY MOUTH EVERY DAY 03/09/2018 10/04/2018 Ac tive fluticasone 50 mcg/a ctuation nasal spray,suspension RxNorm: 8265476 [address] [place] NASAL BID 02/08/2018 No Stop Date Active fluticasone 50 mcg/a ctuation nasal spray,suspension RxNorm: 1990377 1 [place] NASAL BID 02/08/2018 02/07/2018 Inactive Trulance 3 mg tablet RxNorm: 7968647 1 Tablet(s) PO QAM 01/19/2018 07/17/2018 Active cefdinir 300 mg capsule RxNorm: 381099 1 Capsule(s) PO BID 12/28/2017 01/03/2018 Inactive cefdinir 300 mg capsule RxNorm: 128498 1 Capsule(s) PO BID 12/28/2017 12/27/2017 Inactive clopidogrel 75 mg ta blet RxNorm: 505591 TAKE 1 TABLET BY MOUT H EVERY DAY 12/26/2017 06/23/2018 Ac tive Namenda 10 mg tablet RxNorm: 009333 Tablet(s) TAKE 1 TABLET BY MOUTH TWICE D AILY. 12/15/2017 No Stop Date Active Robinul 1 mg tablet RxNorm: 775867 1/2 Tablet(s) PO AC & HS 12/12/2017 12/14/2017 Inactive Robinul 1 mg tablet RxNorm: 507763 1/2 Tablet(s) PO AC & HS 12/12/2017 12/11/2017 Inactive donepezil 10 mg tablet RxNorm: 062256 1 TABLET(S) PO DAILY TAKE 1 TABLET BY [facility] ONCE DAILY 12/08/2017 12/11/2017 Inactive Patient requests 90 days supply lisinopril 20 mg tablet RxNorm: 638053 TAKE 1 TABLET DAILY 12/05/2017 01/11/2018 Inactive Cymbalta 30 mg capsu le,delayed release RxNorm: 905742 1 Capsule(s) PO daily 12/05/2017 12/04/2017 In active Cymbalta 30 mg capsu le,delayed release RxNorm: 332537 1 Capsule(s) PO daily 12/05/2017 12/05/2017 In active Trulance 3 mg tablet RxNorm: 9916996 1 Tablet(s) PO daily 11/14/2017 12/13/2017 Inactive Linzess 145 mcg capsule RxNorm: 3783301 1 Capsule(s) PO daily 10/28/2017 12/14/2017 Inactive Zantac 150 mg tablet RxNorm: 355203 1 Tablet(s) PO QAM 10/13/2017 01/04/2018 Inactive mirtazapine 15 mg ta blet RxNorm: 921445 TAKE ONE TABLET BY [facility] EVERY DAY 09/29/2017 09/23/2018 Ac tive Mobic 15 mg tablet RxNorm: 093162 1/2 TABLET(S) DAILY 09/26/2017 12/19/2017 Inactive lisinopril 20 mg tablet RxNorm: 045824 1/2 Tablet(s) daily 09/13/2017 01/12/2018 Inactive amlodipine 10 mg tablet RxNorm: 472779 TAKE 1 TABLET BY MOUTH EVERY DAY 09/09/2017 03/07/2018 In active Reglan 5 mg tablet RxNorm: 120495 1/2 Tablet(s) PO TID may increase up to a full pill three times daily as needed for poor GI motility 07/20/2017 09/17/2017 Inactive Protonix 40 mg table t,delayed release RxNorm: 397080 1 Tablet(s) PO daily 07/04/2017 01/29/2018 In active clopidogrel 75 mg ta blet RxNorm: 328358 TAKE 1 TABLET BY MOUT H EVERY DAY 06/20/2017 12/16/2017 In active cetirizine 10 mg tablet RxNorm: 5167324 TABLET(S) 1 TABLET(S) PO DAILY TO TAKE I NSTEAD OF THE CLARITIN 06/06/2017 04/01/2018 Active lisinopril 20 mg tablet RxNorm: 925981 TAKE 1 TABLET DAILY 05/30/2017 09/12/2017 Inactive Mobic 15 mg tablet RxNorm: 527767 1/2 TABLET(S) DAILY 03/21/2017 09/16/2017 Inactive donepezil 10 mg tablet RxNorm: 119351 1 Tablet(s) PO daily TAKE 1 TABLET BY [facility] ONCE DAILY 02/28/2017 11/24/2017 Inactive Patient requests 90 days supply Requip 0.25 mg tablet RxNorm: 525070 1 TABLET(S) PO BID 01/24/2017 01/04/2018 Inactive Patient requests 90 days supply clopidogrel 75 mg ta blet RxNorm: 177628 TAKE 1 TABLET BY MOUT H EVERY DAY 12/23/2016 06/19/2017 In active lisinopril 20 mg tablet RxNorm: 823174 TAKE 1 TABLET DAILY 11/26/2016 05/24/2017 Inactive Kenalog 40 mg/mL hugo pension for injection RxNorm: 8922098 Milliliter(s) Inj 11/25/2016 11/25/2016 In active cefdinir 300 mg capsule RxNorm: 446881 1 Capsule(s) PO BID 11/23/2016 11/27/2016 Inactive cefdinir 300 mg capsule RxNorm: 373139 1 Capsule(s) PO BID 11/23/2016 11/22/2016 Inactive nystatin 100,000 uni t/mL oral suspension RxNorm: 107150 5 Milliliter(s) PO QI D 11/18/2016 11/27/2016 In active azithromycin 250 mg tablet RxNorm: 527050 1 Tablet(s) PO UD 2 p ills on day #1 then one pill daily x 4 more days 11/18/2016 11/22/2016 Inactive Mobic 15 mg tablet RxNorm: 732545 1/2 TABLET(S) DAILY 10/28/2016 03/20/2017 Inactive citalopram 10 mg tablet RxNorm: 128491 TAKE 1 TABLET BY MOUTH EVERY DAY 10/07/2016 03/05/2017 In active Patient requests 90 days supply mirtazapine 15 mg ta blet RxNorm: 901923 TAKE ONE TABLET BY [facility] EVERY DAY 10/06/2016 09/28/2017 In active mirtazapine 15 mg ta blet RxNorm: 902443 TAKE ONE TABLET BY [facility] EVERY DAY 10/05/2016 10/05/2016 In active Patient requests 90 days supply amlodipine 10 mg tablet RxNorm: 975332 TAKE 1 TABLET BY MOUTH EVERY DAY 09/14/2016 01/24/2017 In active clopidogrel 75 mg ta blet RxNorm: 578251 TAKE 1 TABLET BY MOUT H EVERY DAY 06/28/2016 12/22/2016 In active lisinopril 20 mg tablet RxNorm: 365781 TAKE 1 TABLET DAILY 05/31/2016 11/25/2016 Inactive donepezil 10 mg tablet RxNorm: 731687 TAKE 1 TABLET BY MOUTH ONCE DAILY 05/11/2016 11/06/2016 In active donepezil 10 mg tablet RxNorm: 525837 TAKE 1 TABLET BY MOUTH ONCE DAILY 04/26/2016 02/28/2017 In active Mobic 15 mg tablet RxNorm: 850379 1/2 Tablet(s) daily 04/19/2016 10/15/2016 Inactive citalopram 10 mg tablet RxNorm: 427453 TAKE 1 TABLET BY MOUTH EVERY DAY 04/06/2016 04/25/2016 In active cetirizine 10 mg tablet RxNorm: 8410102 Tablet(s) 1 TABLET(S) PO DAILY TO TAKE I NSTEAD OF THE CLARITIN 03/30/2016 02/22/2017 Inactive amlodipine 10 mg tablet RxNorm: 806431 TAKE 1 TABLET BY MOUTH EVERY DAY 03/08/2016 01/24/2017 In active amlodipine 10 mg tablet RxNorm: 941695 1 Tablet(s) PO daily TAKE 1 TABLET BY [facility] ONCE DAILY 03/03/2016 03/07/2016 Inactive Requip 0.25 mg tablet RxNorm: 769381 1 Tablet(s) PO BID 03/03/2016 09/13/2016 Inactive Mobic 15 mg tablet RxNorm: 336687 1 Tablet(s) daily not refilled on 02-22t a 02/23/2016 04/18/2016 In active cetirizine 10 mg tablet RxNorm: 2683751 1 TABLET(S) PO DAILY TO TAKE INSTEAD OF THE CLARITIN 02/19/2016 03/19/2016 Inactive lisinopril 20 mg tablet RxNorm: 443939 TAKE 1 TABLET DAILY 02/18/2016 05/17/2016 Inactive Namenda 10 mg tablet RxNorm: 247383 Tablet(s) TAKE 1 TABLET BY MOUTH TWICE D AILY. 02/17/2016 12/14/2017 Inactive lisinopril 20 mg tablet RxNorm: 415549 TAKE 1 TABLET DAILY 01/23/2016 01/24/2017 Inactive cetirizine 10 mg tablet RxNorm: 0175876 1 Tablet(s) PO daily to take instead of the claritin 01/21/2016 02/18/2016 Inactive amlodipine 10 mg tablet RxNorm: 472187 1 Tablet(s) PO daily TAKE 1 TABLET BY MO UTH ONCE DAILY 12/02/2015 03/02/2016 Inactive clopidogrel 75 mg ta blet RxNorm: 891733 TAKE 1 TABLET BY MOUT EVERY DAY 11/25/2015 05/22/2016 In active Mobic 15 mg tablet RxNorm: 278307 TAKE(1/2) TABLET DAILY. 11/17/2015 02/22/2016 Inactive lisinopril 20 mg tablet RxNorm: 835030 TAKE 1 TABLET DAILY 11/17/2015 01/15/2016 Inactive Mobic 15 mg tablet RxNorm: 782549 1/2 Tablet(s) PO daily TAKE (1/2) TABLET DAILY. 11/12/2015 11/16/2015 Inactive citalopram 10 mg tablet RxNorm: 704128 TAKE 1 TABLET BY MOUTH EVERY DAY 10/27/2015 04/05/2016 In active Requip 0.25 mg tablet RxNorm: 161496 1 Tablet(s) PO BID 10/15/2015 02/11/2016 Inactive Requip 0.25 mg tablet RxNorm: 819393 1 Tablet(s) PO BID 10/15/2015 10/14/2015 Inactive mirtazapine 15 mg ta blet RxNorm: 418762 1 Tablet(s) PO daily 09/08/2015 10/01/2016 Inactive donepezil 10 mg tablet RxNorm: 249929 TAKE 1 TABLET DAILY 09/01/2015 04/25/2016 Inactive amlodipine 10 mg tablet RxNorm: 435848 1 Tablet(s) PO daily TAKE 1 TABLET BY [facility] ONCE DAILY 08/18/2015 12/01/2015 Inactive clopidogrel 75 mg ta blet RxNorm: 430704 1 Tablet(s) PO daily TAKE 1 TABLET DAILY 05/20/2015 11/24/2015 In active Mobic 15 mg tablet RxNorm: 738733 Tablet(s) TAKE (1/2) TABLET DAILY. 04/23/2015 10/19/2015 In active lisinopril 20 mg tablet RxNorm: 866094 TAKE 1 TABLET DAILY 04/22/2015 11/16/2015 Inactive Mobic 15 mg tablet RxNorm: 394018 TAKE (1/2) TABLET DAILY. 04/22/2015 04/22/2015 Inactive sulfamethoxazole 400 mg-trimethoprim 80 mg tablet RxNorm: 315404 1/2 Tablet(s) PO nancy y 03/11/2015 04/09/2015 Inactive Vesicare 5 mg tablet RxNorm: 315512 1 Tablet(s) PO 03/11/2015 05/09/2015 Inactive Protonix 40 mg table t,delayed release RxNorm: 940898 1 Tablet(s) PO BID 03/05/2015 09/30/2015 In active ok to change from [address] Archana rivera clopidogrel 75 mg ta blet RxNorm: 907961 1 Tablet(s) PO daily TAKE 1 TABLET DAILY 02/20/2015 05/19/2015 In active Namenda 10 mg tablet RxNorm: 972214 Tablet(s) TAKE 1 TABLET BY MOUTH TWICE D AILY. 01/22/2015 02/16/2016 Inactive amlodipine 10 mg tablet RxNorm: 747721 TAKE 1 TABLET BY MOUTH ONCE DAILY 01/14/2015 08/17/2015 In active donepezil 10 mg tablet RxNorm: 965870 TAKE 1 TABLET DAILY 01/06/2015 08/31/2015 Inactive Levsin 0.125 mg tablet RxNorm: 3810897 1 Tablet(s) PO QID as needed FOR ABD REJI N 11/05/2014 12/03/2014 In active Mobic 15 mg tablet RxNorm: 209866 1/2 Tablet(s) daily TAKE (1/2) TABLET DA MOIZ. 10/01/2014 04/21/2015 Inactive ciprofloxacin 500 mg tablet RxNorm: 633445 1 Tablet(s) PO BID 09/27/2014 10/01/2014 Inactive Flagyl 500 mg tablet RxNorm: 040328 1 Tablet(s) PO TID 09/27/2014 10/03/2014 Inactive take probiotic BID donepezil 10 mg tablet RxNorm: 008226 1/2 Tablet(s) PO BID 09/24/2014 01/05/2015 Inactive lisinopril 20 mg tablet RxNorm: 764886 TAKE 1 TABLET DAILY 09/05/2014 04/21/2015 Inactive amlodipine 10 mg tablet RxNorm: 099883 1 Tablet(s) PO daily 09/02/2014 12/30/2014 Inactive mirtazapine 15 mg ta blet RxNorm: 052371 1 Tablet(s) PO daily 08/28/2014 09/07/2015 Inactive donepezil 10 mg tablet RxNorm: 483902 1 Tablet(s) PO daily 08/28/2014 09/23/2014 Inactive citalopram 10 mg tablet RxNorm: 826761 1 Tablet(s) PO daily 08/28/2014 03/25/2015 Inactive citalopram 10 mg tablet RxNorm: 610290 1 Tablet(s) PO daily 08/07/2014 08/27/2014 Inactive citalopram 10 mg tablet RxNorm: 379579 1 Tablet(s) PO daily 08/07/2014 08/06/2014 Inactive Flagyl 500 mg tablet RxNorm: 789632 1 Tablet(s) PO TID 08/02/2014 08/01/2014 Inactive take probiotic BID Flagyl 500 mg tablet RxNorm: 265996 1 Tablet(s) PO TID 08/02/2014 08/08/2014 Inactive take probiotic BID tamsulosin ER 0.4 mg capsule,extended release 24 hr RxNorm: 913023 1 Capsule(s) PO QHS 06/06/2014 03/10/2015 Inactive TAKE AT BEDTIME escitalopram 5 mg ta blet RxNorm: 020814 1 Tablet(s) PO QPM 06/06/2014 08/06/2014 Inactive doxycycline hyclate 100 mg tablet RxNorm: 943884 1 Tablet(s) PO BID 05/31/2014 05/30/2014 Inactive doxycycline hyclate 100 mg tablet RxNorm: 600328 1 Tablet(s) PO BID 05/31/2014 06/06/2014 Inactive please deliver if not picked by 3pm Aricept 5 mg tablet RxNorm: 987718 1 Tablet(s) PO BID 05/29/2014 08/27/2014 Inactive losartan 50 mg tablet RxNorm: 863593 1/2 Tablet(s) PO daily 05/29/2014 12/28/2015 Inactive clopidogrel 75 mg ta blet RxNorm: 868925 1 Tablet(s) PO daily 05/27/2014 05/26/2014 Inactive Mobic 15 mg tablet RxNorm: 978578 TAKE (1/2) TABLET DAILY. 05/27/2014 09/30/2014 Inactive clopidogrel 75 mg ta blet RxNorm: 988943 TAKE 1 TABLET DAILY 05/27/2014 02/19/2015 Inactive Mobic 15 mg tablet RxNorm: 785226 1/2 Tablet(s) PO daily TAKE (1/2) TABLET DAILY. 05/27/2014 05/26/2014 Inactive prednisone 20 mg tablet RxNorm: 750592 1 Tablet(s) PO BID 05/21/2014 05/25/2014 Inactive albuterol sulfate 2. 5 mg/0.5 mL solution for nebulization RxNorm: 397565 1 inhale INH Q4H as needed 05/21/2014 09/01/2015 Inactive prednisone 20 mg tablet RxNorm: 953499 1 Tablet(s) PO BID 05/21/2014 05/20/2014 Inactive cefdinir 300 mg capsule RxNorm: 158681 1 Capsule(s) PO BID 05/20/2014 05/26/2014 Inactive Zithromax Z-Dequan 250 mg tablet RxNorm: 947404 1 Tablet(s) PO UD 05/20/2014 05/24/2014 Inactive zpack lorazepam 0.5 mg tablet RxNorm: 901486 1/2 to 1 Tablet(s) PO Q8 PRN as needed 04/30/2014 06/05/2014 In active Namenda 10 mg tablet RxNorm: 341107 TAKE 1 TABLET BY MOUTH TWICE DAILY. 04/15/2014 01/21/2015 In active Namenda 10 mg tablet RxNorm: 553074 1 Tablet(s) PO BID 04/15/2014 04/14/2014 Inactive losartan 50 mg tablet RxNorm: 076677 1 Tablet(s) PO daily 03/25/2014 05/28/2014 Inactive Protonix 40 mg table t,delayed release RxNorm: 288385 1 Tablet(s) PO QPM 03/21/2014 06/18/2014 In active ok to change from [address] Archana rivera fluticasone 50 mcg/a ctuation nasal spray,suspension RxNorm: 082684 1 [place] NASAL BID 03/04/2014 09/29/2014 Inactive Protonix 20 mg table t,delayed release RxNorm: 713589 1 Tablet(s) PO QPM 02/08/2014 03/20/2014 In active fluticasone 50 mcg/a ctuation nasal spray,suspension RxNorm: 069459 1 [place] NASAL BID 01/30/2014 03/03/2014 Inactive fluticasone 50 mcg/a ctuation nasal spray,suspension RxNorm: 544443 1 [place] NASAL BID 12/24/2013 01/29/2014 Inactive fluticasone 50 mcg/a ctuation nasal spray,suspension RxNorm: 725504 1 [place] NASAL BID 11/20/2013 12/23/2013 Inactive doxycycline hyclate 100 mg capsule RxNorm: 9102600 1 Capsule(s) PO BID 10/08/2013 10/17/2013 In active doxycycline hyclate 100 mg capsule RxNorm: 0028606 capsule oral 10/08/2013 10/29/2013 Inactive fluticasone 50 mcg/a ctuation nasal spray,suspension RxNorm: 179271 spray,suspension nasl 10/08/2013 11/19/2013 Inactive fluticasone 50 mcg/a ctuation nasal spray,suspension RxNorm: 723745 1 [place] NASAL BID Nasal spray- use twice daily, one spray per nostril twice daily, after 30 minutes, rinse out nose with saline spray. 10/08/2013 10/29/2013 Inactive mirtazapine 7.5 mg t ablet RxNorm: 878906 1/2 Tablet(s) PO daily 08/30/2013 08/27/2014 Inactive lorazepam 0.5 mg tablet RxNorm: 718998 1/2 Tablet(s) PO Q8 PRN 08/21/2013 04/29/2014 Inactive Aricept 5 mg tablet RxNorm: 531601 Tablet(s) PO TAKE 1 TABLET DAILY 08/21/2013 05/28/2014 In active Plavix 75 mg tablet RxNorm: 984734 Tablet(s) PO TAKE 1 TABLET DAILY 05/24/2013 12/04/2014 In active clopidogrel 75 mg ta blet RxNorm: 035404 tablet oral 05/24/2013 05/26/2014 Inactive Plavix 75 mg tablet RxNorm: 758928 1 Tablet(s) PO daily 05/23/2013 05/23/2013 Inactive meloxicam 15 mg tablet RxNorm: 447740 tablet oral 04/26/2013 03/25/2014 Inactive Mobic 15 mg tablet RxNorm: 512689 Tablet(s) PO TAKE (1/2) TABLET DAILY. 04/26/2013 05/26/2014 In active Mobic 15 mg tablet RxNorm: 377487 1/2 Tablet(s) PO daily 04/25/2013 04/25/2013 Inactive lisinopril 20 mg tablet RxNorm: 033244 1 Tablet(s) PO 04/04/2013 03/24/2014 Inactive finasteride 5 mg tablet RxNorm: 369651 tablet oral 03/22/2013 09/01/2015 Inactive lisinopril 10 mg tablet RxNorm: 752247 1 Tablet(s) PO daily 02/14/2013 04/03/2013 Inactive donepezil 5 mg tablet RxNorm: 628817 tablet oral 02/07/2013 12/24/2013 Inactive Influenza Virus Vacc ine 0.5 mL RxNorm: IM 02/06/2013 02/06/2013 Inactive Aricept 5 mg tablet RxNorm: 538651 1 Tablet(s) PO daily 02/06/2013 08/04/2013 Inactive tamsulosin ER 0.4 mg capsule,extended release 24 hr RxNorm: 883364 capsule,extended release 24hr oral 12/21/2012 06/05/2014 Inactive Plavix 75 mg tablet RxNorm: 189713 1 Tablet(s) PO daily 12/05/2012 05/03/2013 Inactive lorazepam 0.5 mg tablet RxNorm: 611691 1/2 Tablet(s) PO Q8 PRN 11/14/2012 08/20/2013 Inactive lisinopril 10 mg tablet RxNorm: 040451 1 Tablet(s) PO daily 08/08/2012 02/03/2013 Inactive Aricept 5 mg tablet RxNorm: 939657 1 Tablet(s) PO daily 08/08/2012 02/03/2013 Inactive Plavix 75 mg tablet RxNorm: 196965 1 Tablet(s) PO daily 07/04/2012 11/30/2012 Inactive Mobic 15 mg tablet RxNorm: 906248 1/2 Tablet(s) PO daily 03/20/2012 04/13/2013 Inactive Namenda 10 mg tablet RxNorm: 812089 1 Tablet(s) PO BID 02/22/2012 04/11/2014 Inactive lorazepam 0.5 mg tablet RxNorm: 504042 1/2 Tablet(s) PO Q8 PRN 02/02/2012 11/13/2012 Inactive lisinopril 10 mg tablet RxNorm: 790779 1 Tablet(s) PO daily 01/24/2012 07/21/2012 Inactive lisinopril 10 mg tablet RxNorm: 939558 1/2 Tablet(s) PO daily 12/20/2011 01/23/2012 Inactive Aricept 5 mg tablet RxNorm: 334943 1 Tablet(s) PO daily 07/14/2011 08/06/2012 Inactive Mobic 15 mg tablet RxNorm: 842204 1 Tablet(s) PO daily 07/14/2011 03/19/2012 Inactive Bentyl 10 mg Cap RxNorm: 130491 1 Capsule(s) PO daily one pill daily and every 6 hours if needed for bowel spasms. 06/23/2011 03/20/2012 Inactive amlodipine 5 mg Tab RxNorm: 837550 2 Tablet(s) PO daily 03/08/2011 12/08/2011 Inactive ZOSTAVAX 19,400 unit Sub-Q Soln RxNorm: 8069769 SQ 02/2502/25/2011 Inactive Pneumovax 23 25 mcg/ 0.5 mL Injection RxNorm: 403033 Milliliter(s) Inj 02/16/2011 02/16/2011 In active Influenza Virus Vacc ine 0.5 mL RxNorm: IM 02/09/2011 02/09/2011 Inactive Namenda 10 mg tablet RxNorm: 101600 1 Tablet(s) PO BID 02/01/2011 02/21/2012 Inactive dicyclomine 10 mg ca psule RxNorm: 140828 capsule oral 01/20/2011 10/29/2013 Inactive Namenda 5 mg tablet RxNorm: 597648 tablet oral 01/20/2011 12/24/2013 Inactive dicyclomine 20 mg ta blet RxNorm: 987839 tablet oral 01/15/2011 10/29/2013 Inactive Flagyl 500 mg Tab RxNorm: 440627 1 Tablet(s) PO TID 01/07/2011 01/06/2011 Inactive Cipro 500 mg Tab RxNorm: 138909 1 Tablet(s) PO BID 01/07/2011 06/23/2011 Inactive Cipro 500 mg Tab RxNorm: 278871 1 Tablet(s) PO BID 01/07/2011 01/06/2011 Inactive Flagyl 500 mg Tab RxNorm: 207699 1 Tablet(s) PO TID 01/07/2011 06/23/2011 Inactive metronidazole 500 mg tablet RxNorm: 435476 tablet oral 01/07/2011 12/24/2013 Inactive sulfamethoxazole 400 mg-trimethoprim 80 mg tablet RxNorm: 282457 tablet oral 12/24/2010 03/10/2015 In active mirtazapine 15 mg ta blet RxNorm: 650555 tablet oral 11/14/2010 12/24/2013 Inactive lisinopril 10 mg tablet RxNorm: 411209 tablet oral 11/14/2010 12/24/2013 Inactive doxycycline hyclate 100 mg tablet RxNorm: 068694 tablet oral 11/04/2010 12/24/2013 Inactive diphenoxylate-atropi ne 2.5 mg-0.025 mg tablet RxNorm: 3482274 tablet oral 11/03/2010 10/29/2013 In active ciprofloxacin 500 mg tablet RxNorm: 349355 tablet oral 11/01/2010 10/29/2013 Inactive Miralax 17 gram/dose oral powder RxNorm: 872049 17 Gram(s) PO daily No Start Date Active ranitidine 150 mg ta blet RxNorm: 951938 1 Tablet(s) PO daily No Start Date Active alprazolam 0.25 mg t ablet RxNorm: 253065 1 Tablet(s) PO BID PRN No Start Date Active simvastatin 20 mg ta blet RxNorm: 096325 1 Tablet(s) PO daily No Start Date Active Vesicare 5 mg tablet RxNorm: 237975 1 Tablet(s) PO daily No Start Date Active bicalutamide 50 mg t ablet RxNorm: 461258 1 Tablet(s) PO daily No Start Date Active Phenergan 6.25 mg/5 mL syrup RxNorm: 339397 5-10 Milliliter(s) PO QID as needed No Start Date Active sulfamethoxazole 500 mg Tab RxNorm: 030007 1/2 Tablet(s) PO daily No Start Date 12/24/2013 Inactive Plavix 75 mg Tab RxNorm: 028130 1 Tablet(s) PO daily No Start Date 01/26/2011 Inactive aspirin 81 mg Cap, D elayed Release RxNorm: 000161 1 Capsule(s) PO daily No Start Date 01/04/2018 Inactive Bentyl 10 mg capsule RxNorm: 243255 1 Capsule(s) PO QID as needed per dr. tylor pereira No Start Date 01/04/2018 Inactive famotidine 20 mg tablet RxNorm: 466645 1 Tablet(s) PO BID prescribed in ER No Start Date 10/13/2017 Inactive hydrocodone 5 mg-alexey taminophen 325 mg tablet RxNorm: 666274 1 Tablet(s) PO Q6 as needed No Start Date 06/05/2014 Inactive Proscar 5 mg Tab RxNorm: 673694 1 Tablet(s) PO daily No Start Date 09/01/2015 Inactive Plavix 75 mg tablet RxNorm: 643815 1 Tablet(s) PO daily No Start Date 07/03/2012 Inactive albuterol sulfate 2. 5 mg/0.5 mL solution for nebulization RxNorm: 409629 1 inhale INH Q4H as needed No Start Date 05/20/2014 Inactive metoclopramide 5 mg tablet RxNorm: 635748 1 Tablet(s) PO AC & H S prescribed in ER No Start Date 01/04/2018 Inactive amlodipine 5 mg Tab RxNorm: 483994 1 Tablet(s) PO daily No Start Date 03/07/2011 Inactive Namenda 5 mg Tab RxNorm: 071952 1 Tablet(s) PO daily No Start Date 06/23/2011 Inactive Zyrtec 10 mg tablet RxNorm: 4488346 1 Tablet(s) PO daily No Start Date 01/04/2018 Inactive Allergy Relief (ceti rizine) oral RxNorm: 040055 oral No S tart Date 12/19/2016 Inactive fluocinonide 0.05 % Ointment RxNorm: 266763 1 TOP BID PRN No Start Date 12/24/2013 Inactive amlodipine 5 mg tablet RxNorm: 883905 1 Tablet(s) PO daily No Start Date 09/01/2014 Inactive lisinopril Oral RxNorm: Oral No Start Date 12/08/2011 Inactive simvastatin 20 mg Tab RxNorm: 151426 1 Tablet(s) PO daily No Start Date 06/06/2014 Inactive Bentyl 20 mg Tab RxNorm: 460495 1 Tablet(s) PO Q6 PRN No Start Date 06/23/[address] Quintero Bentyl 10 mg Cap RxNorm: 254373 1 Capsule(s) PO BID No Start Date 06/22/2011 Inactive fluticasone 50 mcg/a ctuation nasal spray,suspension RxNorm: 2265515 [address] [place] NASAL BID No Start Date 02/07/2018 Inactive Plavix 75 mg Tab RxNorm: 398606 1 Tablet(s) PO every other day No Start Date 08/24/2011 Inactive lorazepam 0.5 mg tablet RxNorm: 745313 1/2 Tablet(s) PO Q8 PRN No Start Date 02/01/2012 Inactive lisinopril 10 mg tablet RxNorm: 539459 1 Tablet(s) PO daily No Start Date 12/19/2011 Inactive Trulance 3 mg tablet RxNorm: 2438636 1 Tablet(s) PO QAM No Start Date 01/18/2018 Inactive Flomax 0.4 mg 24 hr Cap RxNorm: 484547 1 Capsule(s) PO daily No Start Date 05/28/2014 Inactive Aricept 5 mg Tab RxNorm: 622529 1 Tablet(s) PO daily No Start Date 07/13/2011 Inactive Vitamin D 1,000 unit Tab RxNorm: 713018 1 Tablet(s) PO daily No Start Date 01/04/2018 Inactive Levsin 0.125 mg tablet RxNorm: 3664342 1 Tablet(s) PO QID as needed FOR ABD REJI N No Start Date 11/04/2014 Inactive mirtazapine 7.5 mg t ablet RxNorm: 765354 1/2 Tablet(s) PO daily No Start Date 08/29/2013 Inactive Senior Vitamin Tab RxNorm: 1 Tablet(s) PO daily No Start Date 01/04/2018 Inactive Mobic 15 mg Tab RxNorm: 425293 1 Tablet(s) PO daily No Start Date 07/13/2011 Inactive Medication Administered Medication Codes Instruc tions Start Date Status Kenalog 40 mg/mL suspension for injection RxNorm: 1847738 Milliliter 11/25/2016 No longer Active Influenza Virus Vaccine 0.5 mL RxNorm: 02/06/2013 No longer Active ZOSTAVAX 19,400 unit Sub-Q Soln RxNo rm: [id number] 02/25/2011 No longer A ctive Pneumovax 23 25 mcg/0.5 mL Injection RxNorm: 248339 Milliliter 02/16/2011 No longer Active Influenza Virus [...] Candidal stomatitis ICD-10: B37.0 ICD-9: 112.0 01/12/2018 Essential (primary) hypertension ICD -10: I10 ICD-9: 401.1 01/05/2018 Major depressive disorder, single episode, mild ICD-10: [...] For Visit Effective Dates Notes abdominal pain 02/08/2018 abdominal pain 01/19/2018 hypertension [...] Observation Code Item Item Code Result Date C RAP A SC 1459248 Strep A Negative 01/13/2018 Comp Metabolic Olq914 NA 134 mEq/L 10/07/2017 Comp Metabolic Lnc924 K 4.5 mEq/L 10/07/2017 Comp Metabolic Wgc610 CL 99 mEq/L 10/07/2017 Comp Metabolic Gke871 CO2 31.0 mEq/L 10/07/2017 Comp Metabolic Xaw446 AN ION GAP 9 10/07/2017 Comp Metabolic Xrw363 GL UCOSE 82 mg/dL 10/07/2017 Comp Metabolic Hdq406 Cr eat 1.0 mg/dL 10/07/2017 Comp Metabolic Pfp095 eG FR 77 ml/min/1.73m2 10/07 Comp Metabolic Vmc702 BUN 16 mg/dL 10/07/2017 Comp Metabolic Guy169 B/ C Ratio 16.3 Ratio 10/07/2017 Comp Metabolic Jea351 CA LCIUM 9.6 mg/dL 10/07/2017 Comp Metabolic Dte552 AL K PHOS 72 U/L 10/07/2017 Comp Metabolic Fgx939 T(SGOT) 21 U/L 10/07/2017 Comp Metabolic Upo857 AL T(SGPT) 14 U/L 10/07/2017 Comp Metabolic Tgw212 BI LI T 0.4 mg/dL 10/07/2017 Comp Metabolic Gkh688 AL BUMIN 4.0 g/dL 10/07/2017 Comp Metabolic Ayr268 TP RO 5.7 g/dL 10/07/2017 Comp Metabolic Xaz071 GL OB 1.7 g/dL 10/07/2017 Comp Metabolic Jjn534 A/ G Ratio 2.4 Ratio 10/07/2017 Comp Metabolic Ynu127 Os mo 269 mOsmo 10/07/2017 Lipid Ord30 CHOL 135 mg/dL 10/07/2017 Lipid Ord30 HDL 69.0 mg/dl 10/07/2017 Lipid Ord30 TRIG 52 mg/dL 10/07/2017 Lipid Ord30 LDL 56 mg/dL 10/07/2017 Lipid Ord30 C/HDL 2.0 Ratio 10/07/2017 %Hba1C Xdr019 % HbA1c 81404-2 5.5 % 09/12/2017 %Hba1C Oan431 Gluc Ave 111 mg/dL 09/12/2017 B12 Avm645 B12 816.00 pg/ml 09/10/2017 Test(s) Not Perfromed Test(s) Not Performed Test(s) Not Performed. See B elow: 09/09/2017 Test(s) Not Perfromed TEST NAME VIT D 09/09/2017 Test(s) Not Perfromed Rejection Reason NO PAYABLE DX 018 Test(s) Not Perfromed COMMENT PATIENT SAID HE WAS TAKING SUPPLEMENT 09/09/2017 Test(s) Not Perfromed Social Media Editor Tello Almeida 018 Lipid Ord30 CHOL 134 mg/dL 04/11/2017 Lipid Ord30 HDL 63.0 mg/dl 04/11/2017 Lipid Ord30 TRIG 45 mg/dL 04/11/2017 Lipid Ord30 LDL 62 mg/dL 04/11/2017 Lipid Ord30 C/HDL 2.1 Ratio 04/11/2017 Tsh Ord6 hTSH II 2.07 uIU/mL 04/11/2017 Body Fluid Crystals Source RIGHT ELBOW 6 Body Fluid Crystals CRYSTALS, BODY FLUID 02/18/2016 Uric Acid Body Fluid 616876 URIC ACID-FLUID 4.3 mg/dL 02/18/2016 Metabolic Ord15 [...] Ord15 CALCIUM 9.1 mg/dL 02/05/2016 Comp Metabolic Ddn758 NA 129 mEq/L 10/08/2015 Comp Metabolic Zhz783 K 4.7 mEq/L 10/08/2015 Comp Metabolic Uei838 CL 98 mEq/L 10/08/2015 Comp Metabolic Csw400 CO2 28.0 mEq/L 10/08/2015 Comp Metabolic Gle417 AN ION GAP 8 10/08/2015 Comp Metabolic Mjw970 GL UCOSE 84 mg/dL 10/08/2015 Comp Metabolic Siy414 Cr eat 1.3 mg/dL 10/08/2015 Comp Metabolic Ecv281 eG FR 56 ml/min/1.73m2 10/07 Comp Metabolic Xut637 BUN 23 mg/dL 10/08/2015 Comp Metabolic Kvy703 B/ C Ratio 17.8 Ratio 10/08/2015 Comp Metabolic Sir026 CA LCIUM 9.3 mg/dL 10/08/2015 Comp Metabolic Iyx460 AL K PHOS 68 U/L 10/08/2015 Comp Metabolic Lbx467 T(SGOT) 24 U/L 10/08/2015 Comp Metabolic Sfj307 AL T(SGPT) 15 U/L 10/08/2015 Comp Metabolic Hga039 BI LI T 0.5 mg/dL 10/08/2015 Comp Metabolic Iyd192 AL BUMIN 4.0 g/dL 10/08/2015 Comp Metabolic Uym406 TP RO 5.9 g/dL 10/08/2015 Comp Metabolic Eny798 GL OB 1.9 g/dL 10/08/2015 Comp Metabolic Bqp073 A/ G Ratio 2.1 Ratio 10/08/2015 Comp Metabolic Loy054 Os mo 262 mOsmo 10/08/2015 Lipid Ord30 [...] Ord30 C/HDL 2.3 Ratio 05/07/2015 Comp Metabolic Hzk528 NA 132 mEq/L 05/07/2015 Comp Metabolic Snj656 K 4.4 mEq/L 05/07/2015 Comp Metabolic Try980 CL 97 mEq/L 05/07/2015 Comp Metabolic Tzr746 CO2 30.0 mEq/L 05/07/2015 Comp Metabolic Yoc585 AN ION GAP 9 05/07/2015 Comp Metabolic Bvx250 GL UCOSE 78 mg/dL 05/07/2015 Comp Metabolic Ysr558 Cr eat 1.2 mg/dL 05/07/2015 Comp Metabolic Tzn734 eG FR 60 ml/min/1.73m2 05/07 Comp Metabolic Uxi370 BUN 25 mg/dL 05/07/2015 Comp Metabolic Emx048 B/ C Ratio 20.3 Ratio 05/07/2015 Comp Metabolic Lus128 CA LCIUM 9.6 mg/dL 05/07/2015 Comp Metabolic Any486 AL K PHOS 70 U/L 05/07/2015 Comp Metabolic Dag684 T(SGOT) 27 U/L 05/07/2015 Comp Metabolic Lyj802 AL T(SGPT) 20 U/L 05/07/2015 Comp Metabolic Wmg249 BI LI T 0.4 mg/dL 05/07/2015 Comp Metabolic Xbt025 AL BUMIN 4.0 g/dL 05/07/2015 Comp Metabolic Vse602 TP RO 5.8 g/dL 05/07/2015 Comp Metabolic Icf998 GL OB 1.8 g/dL 05/07/2015 Comp Metabolic Wpl303 A/ G Ratio 2.3 Ratio 05/07/2015 Comp Metabolic Yyb661 Os mo 268 mOsmo 05/07/2015 Cbc With [...] hTSH II 4.07 uIU/mL 05/07/2015 Comp Metabolic Jjh981 NA 134 mEq/L 12/10/2014 Comp Metabolic Iss218 K 4.8 mEq/L 12/10/2014 Comp Metabolic Qef411 CL 101 mEq/L 12/10/2014 Comp Metabolic Lhq570 CO2 30.0 mEq/L 12/10/2014 Comp Metabolic Pzj329 AN ION GAP 8 12/10/2014 Comp Metabolic Spn312 GL UCOSE 85 mg/dL 12/10/2014 Comp Metabolic Ljk599 Cr eat 1.2 mg/dL 12/10/2014 Comp Metabolic Bzo881 eG FR 65 ml/min/1.73m2 12/10 Comp Metabolic Mtg548 BUN 25 mg/dL 12/10/2014 Comp Metabolic Afb404 B/ C Ratio 21.7 Ratio 12/10/2014 Comp Metabolic Zdo884 CA LCIUM 9.5 mg/dL 12/10/2014 Comp Metabolic Zhi015 AL K PHOS 76 U/L 12/10/2014 Comp Metabolic Lof871 T(SGOT) 27 U/L 12/10/2014 Comp Metabolic Cwq420 AL T(SGPT) 18 U/L 12/10/2014 Comp Metabolic Yua280 BI LI T 0.5 mg/dL 12/10/2014 Comp Metabolic Vjf981 AL BUMIN 4.1 g/dL 12/10/2014 Comp Metabolic Vbi231 TP RO 5.7 g/dL 12/10/2014 Comp Metabolic Iqk598 GL OB 1.6 g/dL 12/10/2014 Comp Metabolic Fww958 A/ G Ratio 2.6 Ratio 12/10/2014 Comp Metabolic Qza751 Os mo 272 mOsmo 12/10/2014 B12 Hps384 B12 1011.00 pg/ml 12/10/2014 Lipid Ord30 CHOL [...] Differential Ord2 RDW 14.3 % 12/10/2014 CBC 9742172 WBC 4.1 10e9/L 02/19/2013 CBC 7685116 RBC 4.39 10e12/L 02/19/2013 CBC 0823347 HGB 14.1 g/dL 02/19/2013 CBC 9904804 HCT DET 41.0 % 02/19/2013 CBC 4562246 MCV 93.4 fL 02/19/2013 CBC 9437847 MCH 32.1 pg 02/19/2013 CBC 4256201 MCHC 34.4 g/dL 02/19/2013 CBC 7796264 PLT 151 10e9/L 02/19/2013 CBC 3818332 MPV 11.8 fL 02/19/2013 CBC 9931134 YOVANNY % 63.2 % 02/19/2013 CBC 2629065 LY % 22.9 % 02/19/2013 CBC 3697240 MON % 11.5 % 02/19/2013 CBC 0071162 EOS % 2.2 % 02/19/2013 CBC 1522429 BASO % 0.2 % 02/19/2013 CBC 6733509 RDW 13.8 % 02/19/2013 CBC 4890130 ABS YOVANNY 2.59 10e9/L 02/19/2013 CBC 4969924 ABS LYMPH 0.94 10e9/L 02/19/2013 CBC 2410942 ABS MONO 0.47 10e9/L 02/19/2013 CBC 3500113 ABS EOS 0.09 10e9/L 02/19/2013 CBC 1074956 ABS BASO 0.01 10e9/L 02/19/2013 CBC 2902690 RDW-SD 46.0 fL 02/19/2013 TSH 7226916 TSH 2.094 uIU/ML 02/19/2013 FREE T4 8038183 FREE T4 1.18 NG/DL 02/19/2013 GFR CALC 0760544 GFR AA >60 ML/MIN 02/19/2013 GFR CALC 9606613 GFR NON -AA >60 ML/MIN 02/19/2013 CHEM 14 0586063 AST 30 U/L 02/19/2013 CHEM 14 0118262 ALT 19 IU/L 02/19/2013 CHEM 14 6709516 BUN 21 MG/DL 02/19/2013 CHEM 14 2887126 ALBUMIN 4.4 GM/DL 02/19/2013 CHEM 14 9513365 CHLORIDE 94 MMOL/L 02/19/2013 CHEM 14 2623261 BILI TOT 0.5 MG/DL 02/19/2013 CHEM 14 8558266 ALK PHOS 75 U/L 02/19/2013 CHEM 14 7242200 SODIUM 133 MMOL/L 02/19/2013 CHEM 14 7187011 CREATINI NE 1.07 MG/DL 02/19/2013 CHEM 14 4691720 CALCIUM 9.6 MG/DL 02/19/2013 CHEM 14 6164378 POTASSIUM 4.6 MMOL/L 02/19/2013 CHEM 14 8787811 PROT TOT 6.1 GM/DL 02/19/2013 CHEM 14 8197825 GLUCOSE 94 MG/DL 02/19/2013 CHEM 14 9172965 BICARB 31 MMOL/L 02/19/2013 CHEM 14 5568376 ANION GAP 8 MEQ/L 02/19/2013 UA 57556 Specific [place] 1.015 DateTime(Free Text in Aprima ) UA 73525 PH 6 DateTime(Free Text in Aprima ) UA 60989 GLUCOSE neg DateTime(Free Text in Aprima ) UA 37689 Protein neg DateTime(Free Text in Aprima ) UA 68731 Blood neg DateTime(Free Text in Aprima ) UA 08085 Bilirubin neg DateTime(Free Text in Aprima ) UA 00334 Ketones neg DateTime(Free Text in Aprima ) UA 13800 Urobilinogen neg DateTime(Free Text in Aprima ) UA 01344 Nitrite neg DateTime(Free Text in Aprima ) UA 23186 Leukocytes neg DateTime(Free Text in Aprima ) Review of Systems System Result Effective Dates Constitutional recent illness 02/08/2018 Constitutional No chills [...] dry 01/19/2018 None Full Exam - General 1995 Constitutional general appearance Overall: well developed 01/12/2018 None Full Exam - General 1995 Constitutional [...] retractions 06/23/2011 None Full Exam - General 1995 [...] VACC PRSV FREE I NC ANTIG CPT-4: 58161 02/08/2018 URINALYSIS NONAUTO W /O SCOPE CPT-4: 52571 09/26/2017 ADMIN INFLUENZA VIRU S VAC CPT-4: G0008 01/25/2017 FLU VACC PRSV FREE I NC ANTIG CPT-4: 66148 01/25/2017 THER/PROPH/DIAG INJ SC/IM CPT-4: 79531 11/25/2016 TRIAMCINOLONE ACET I [place] NOS CPT-4: J3301 11/25/2016 DRAIN/INJECT JOINT/B URSA CPT-4: 09684 02/17/2016 IMMUNIZATION ADMIN CPT- 4: 95957 05/06/2015 PNEUMOCOCCAL VACC 13 TIFFANIE IM Formatting Model/CDA Sections, Assigned to/Celia Minaya SNOMED CT: 29981399 CPT-4: 18548Qlhjvhh 05/06/2015 ADMIN INFLUENZA VIRU S VAC CPT-4: G0008 02/19/2015 FLU VACC 4 TIFFANIE 3 YRS PLUS IM Formatting Model/CDA Sections, Assigned to SNOMED CT: 63256825 CPT-4: 70751Dgoztcg 02/19/2015 URINALYSIS NONAUTO W /O SCOPE CPT-4: 38417 05/23/2014 ADMIN INFLUENZA VIRU S VAC CPT-4: G0008 03/26/2014 FLU VAC NO PRSV 4 VA L 3 YRS+ Assigned to/Celia Minaya CPT-4: 97031Wfxzkvi 03/26/2014 PRESCRIP TRANSMIT A ERX SY CPT-4: G8553 04/04/2013 ROUTINE VENIPUNCTURE CPT-4: 44371 02/19/2013 ADMIN INFLUENZA VIRU S VAC CPT-4: G0008 02/06/2013 FLULAVAL VACC, 3 YRS & >, IM CPT-4: Q2036 02/06/2013 43666 EST. PATIENT, LEVEL IV CPT-4: 27051 06/19/2012 PRESCRIP TRANSMIT A ERX SY CPT-4: G8553 06/19/2012 PRESCRIP TRANSMIT A ERX SY CPT-4: G8553 03/20/2012 PRESCRIP TRANSMIT A ERX SY CPT-4: G8553 06/23/2011 IMMUNIZATION ADMIN CPT- 4: 86119 02/25/2011 ZOSTER VACC SC (No lloyd stephens, patient supplied vaccine) CPT-4: 74428DT 02/25/2011 ADMIN PNEUMOCOCCAL V ACCINE SNOMED CT: 41546324 CPT-4: G0009 02/16/2011 Pneumococcal Polysac charide Vaccine, 23-Valent, Ad CPT-4: 92229 02/16/2011 ADMIN INFLUENZA VIRU S VAC CPT-4: G0008 02/09/2011 FLULAVAL VACC, 3 YRS & >, IM CPT-4: Q2036 02/09/2011 PRESCRIP TRANSMIT A ERX SY CPT-4: G8553 02/01/2011 URINALYSIS NONAUTO W /O SCOPE CPT-4: 60140 01/27/2011 Vital Signs Date Vital 02/08/2018 Blood Pressure 1: 136/76 Code: 8480-6 BMI: 19.9 Code: 79969-7 Heart Rate 1: 78 bpm Height: 5'9" SpO2: 99% Weight: 135 lbs 01/19/2018 Blood Pressure 1: 114/78 Code: 8480-6 BMI: 19.9 Code: 42561-4 Heart Rate 1: 80 bpm Height: 5'9" SpO2: 98% Weight: 135 lbs 01/12/2018 Blood Pressure 1: 130/78 Code: 8480-6 BMI: 19.8 Code: 34928-6 Heart Rate 1: 85 bpm Height: 5'9" SpO2: 97% Weight: 134 lbs 01/05/2018 Blood Pressure 1: 122/70 Code: 8480-6 BMI: 19.6 Code: 76366-9 Heart Rate 1: 87 bpm Height: 5'9" SpO2: 96% Weight: 133 lbs 11/14/2017 Blood Pressure 1: 130/70 Code: 8480-6 BMI: 19.5 Code: 03597-6 Heart Rate 1: 75 bpm Height: 5'9" SpO2: 98% Weight: 132 lbs 2017 Blood Pressure 1: 116/70 Code: 8480-6 BMI: 19.5 Code: 95993-9 Heart Rate 1: 55 bpm Height: 5'9" SpO2: 95% Weight: 132 lbs 10/13/2017 Blood Pressure 1: 130/70 Code: 8480-6 BMI: 19.3 Code: 31809-7 Heart Rate 1: 67 bpm Height: 5'9" SpO2: 98% Weight: 131 lbs 09/26/2017 Blood Pressure 1: 126/70 Code: 8480-6 BMI: 19.1 Code: 35340-2 Heart Rate 1: 66 bpm Height: 5'9" SpO2: 100% Weight: 129 lbs 8 oz 09/12/2017 Blood Pressure 1: 120/70 Code: 8480-6 BMI: 19.5 Code: 11950-0 Heart Rate 1: 83 bpm Height: 5'9" SpO2: 99% Weight: 132 lbs 09/09/2017 Blood Pressure 1: 126/70 Code: 8480-6 BMI: 19.3 Code: 15052-7 Heart Rate 1: 80 bpm Height: 5'9" SpO2: 98% Weight: 131 lbs 08/17/2017 Blood Pressure 1: 130/74 Code: 8480-6 BMI: 19.6 Code: 78577-4 Heart Rate 1: 72 bpm Height: 5'9" SpO2: 98% Weight: 133 lbs 07/20/2017 Blood Pressure 1: 124/62 Code: 8480-6 BMI: 19.8 Code: 37805-2 Heart Rate 1: 65 bpm Height: 5'9" SpO2: 96% Weight: 134 lbs 07/01/2017 Blood Pressure 1: 134/64 Code: 8480-6 BMI: 21.0 Code: 33690-8 Height: 5'9" Weight: 142 lbs 06/21/2017 Blood Pressure 1: 142/80 Code: 8480-6 BMI: 21.0 Code: 69362-4 Heart Rate 1: 63 bpm Height: 5'9" SpO2: 98% Weight: 142 lbs 03/21/2017 Blood Pressure 1: 128/66 Code: 8480-6 BMI: 20.8 Code: 61464-8 Heart Rate 1: 61 bpm Height: 5'9" SpO2: 98% Weight: 141 lbs 03/08/2017 Blood Pressure 1: 134/68 Code: 8480-6 BMI: 20.4 Code: 53771-8 Heart Rate 1: 56 bpm Height: 5'9" SpO2: 99% Weight: 138 lbs 01/25/2017 Blood Pressure 1: 98/62 Code: 8480-6 BMI: 20.6 Code: 67511-8 Heart Rate 1: 71 bpm Height: 5'9" SpO2: 97% Weight: 139 lbs 8 oz 12/20/2016 Blood Pressure 1: 120/68 Code: 8480-6 BMI: 20.4 Code: 75348-2 Heart Rate 1: 70 bpm Height: 5'9" [...] 1: 120/60 Code: 8480-6 BMI: 20.7 Code: 51349-5 Heart Rate 1: 74 bpm Height: 5'9" SpO2: 95% Weight: 140 lbs 08/23/2016 Blood Pressure 1: 118/68 Code: 8480-6 BMI: 20.8 Code: 66155-7 Heart Rate 1: 54 bpm Height: 5'9" SpO2: 97% Weight: 141 lbs 04/26/2016 Blood Pressure 1: 108/64 Code: 8480-6 BMI: 21.0 Code: 39374-9 Heart Rate 1: 62 bpm Height: 5'9" SpO2: 95% Weight: 142 lbs 02/17/2016 Blood Pressure 1: 138/80 Code: 8480-6 BMI: 20.2 Code: 92786-1 Heart Rate 1: 76 bpm Height: 5'9" SpO2: 97% Weight: 137 lbs 02/09/2016 Blood Pressure 1: 140/76 Code: 8480-6 BMI: 20.2 Code: 13387-9 Heart Rate 1: 72 bpm Height: 5'9" SpO2: 96% Weight: 137 lbs 02/03/2016 Blood Pressure 1: 136/80 Code: 8480-6 BMI: 20.7 Code: 95164-9 Heart Rate 1: 86 bpm Height: 5'9" SpO2: 96% Weight: 140 lbs 01/26/2016 Blood Pressure 1: 144/78 Code: 8480-6 BMI: 20.7 Code: 34307-9 Heart Rate 1: 73 bpm Height: 5'9" SpO2: 97% Temperature: 37.0 (C ) / 98.6 (F) Weight: 140 lbs 01/21/2016 Blood Pressure 1: 116/62 Code: 8480-6 BMI: 20.4 Code: 63793-3 Heart Rate 1: 66 bpm Height: 5'9" SpO2: 97% Weight: 138 lbs 12/29/2015 Blood Pressure 1: 130/74 Code: 8480-6 BMI: 20.4 Code: 62636-3 Heart Rate 1: 51 bpm Height: 5'9" SpO2: 98% Weight: 138 lbs 09/02/2015 Blood Pressure 1: 126/60 Code: 8480-6 BMI: 22.3 Code: 90799-7 Heart Rate 1: 55 bpm Height: 5'9" SpO2: 96% Weight: 151 lbs 05/06/2015 Blood Pressure 1: 132/72 Code: 8480-6 BMI: 21.0 Code: 01294-6 Heart Rate 1: 63 bpm Height: 5'9" SpO2: 97% Weight: 142 lbs 03/05/2015 Blood Pressure 1: 130/68 Code: 8480-6 BMI: 21.0 Code: 37901-5 Heart Rate 1: 61 bpm Height: 5'9" SpO2: 96% Weight: 142 lbs 12/04/2014 Blood Pressure 1: 122/64 Code: 8480-6 BMI: 21.3 Code: 53105-7 Heart Rate 1: 72 bpm Height: 5'9" Weight: 144 lbs 09/24/2014 Blood Pressure 1: 142/80 Code: 8480-6 BMI: 20.4 Code: 69731-1 Heart Rate 1: 80 bpm Height: 5'9" Weight: 138 lbs 09/09/2014 Blood Pressure 1: 122/74 Code: 8480-6 BMI: 20.5 Code: 91953-8 Heart Rate 1: 64 bpm Height: 5'9" Weight: 139 lbs 07/26/2014 Blood Pressure 1: 136/82 Code: 8480-6 BMI: 20.4 Code: 55830-4 Heart Rate 1: 87 bpm Height: 5'9" SpO2: 92% Weight: 138 lbs 07/10/2014 Blood Pressure 1: 130/74 Code: 8480-6 BMI: 21.1 Code: 01259-7 Heart Rate 1: 64 bpm Height: 5'9" Weight: 143 lbs 06/06/2014 Blood Pressure 1: 142/88 Code: 8480-6 BMI: 20.4 Code: 12881-2 Heart Rate 1: 68 bpm Height: 5'9" Weight: 138 lbs 05/29/2014 Blood Pressure 1: 108/72 Code: 8480-6 BMI: 20.5 Code: 32568-6 Heart Rate 1: 60 bpm Height: 5'9" Weight: 139 lbs 05/20/2014 Blood Pressure 1: 140/72 Code: 8480-6 BMI: 21.6 Code: 85385-5 Heart Rate 1: 60 bpm Height: 5'9" SpO2: 98% Temperature: 36.2 (C ) / 97.2 (F) Weight: 146 lbs 03/25/2014 Blood Pressure 1: 128/60 Code: 8480-6 BMI: 21.4 Code: 12243-3 Heart Rate 1: 62 bpm Height: 5'9" Weight: 145 lbs 02/08/2014 Blood Pressure 1: 136/82 Code: 8480-6 BMI: 21.3 Code: 79965-2 Heart Rate 1: 68 bpm Height: 5'9" Weight: 144 lbs 12/24/2013 Blood Pressure 1: 122/76 Code: 8480-6 BMI: 21.6 Code: 80784-0 Heart Rate 1: 58 bpm Height: 5'9" Weight: 146 lbs 11/20/2013 Blood Pressure 1: 112/62 Code: 8480-6 BMI: 20.7 Code: 61622-6 Heart Rate 1: 56 bpm Height: 5'9" Weight: 140 lbs 10/30/2013 Blood Pressure 1: 130/68 Code: 8480-6 BMI: 20.1 Code: 26285-6 Heart Rate 1: 68 bpm Height: 5'9" SpO2: 96% Weight: 136 lbs 10/08/2013 Blood Pressure 1: 128/72 Code: 8480-6 BMI: 20.8 Code: 69087-5 Heart Rate 1: 60 bpm Height: 5'9" Temperature: 36.6 (C ) / 97.8 (F) Weight: 141 lbs 06/18/2013 Blood Pressure 1: 124/78 Code: 8480-6 BMI: 20.8 Code: 87127-0 Heart Rate 1: 64 bpm Height: 5'9" Weight: 141 lbs 04/04/2013 Blood Pressure 1: 138/60 Code: 8480-6 BMI: 20.8 Code: 08301-1 Heart Rate 1: 56 bpm Height: 5'9" Weight: 141 lbs 02/19/2013 Blood Pressure 1: 152/74 Code: 8480-6 BMI: 21.0 Code: 74435-4 Heart Rate 1: 60 bpm Height: 5'9" Weight: 142 lbs 10/16/2012 Blood Pressure 1: 122/70 Code: 8480-6 BMI: 20.8 Code: 57602-4 Heart Rate 1: 64 bpm Height: 5'9" Weight: 141 lbs 06/19/2012 Blood Pressure 1: 120/72 Code: 8480-6 BMI: 21.1 Code: 19855-8 Heart Rate 1: 60 bpm Height: 5'9" Weight: 143 lbs 03/20/2012 Blood Pressure 1: 114/76 Code: 8480-6 Heart Rate 1: 60 bpm Respiratory Rate: 16 bpm Weight: 143 lbs 01/24/2012 Blood Pressure 1: 134/70 Code: 8480-6 Heart Rate 1: 64 bpm Weight: 143 lbs 12/20/2011 Blood Pressure 1: 98/72 Code: 8480-6 BMI: 21.1 Code: 66558-0 Heart Rate 1: 60 bpm Height: 5'9" Respiratory Rate: 16 bpm Weight: 143 lbs 12/09/2011 Blood Pressure 1: 110/60 Code: 8480-6 Heart Rate 1: 66 bpm SpO2: 98% Weight: 141 lbs 08/25/2011 Blood Pressure 1: 112/70 Code: 8480-6 BMI: 20.8 Code: 99728-4 Heart Rate 1: 54 bpm Height: 5'9" Respiratory Rate: 16 bpm Weight: 141 lbs 06/23/2011 Blood Pressure 1: 126/64 Code: 8480-6 Heart Rate 1: 60 bpm Respiratory Rate: 16 bpm Weight: 142 lbs 04/19/2011 Blood Pressure 1: 124/64 Code: 8480-6 BMI: 21.1 Code: 90588-5 Heart Rate 1: 64 bpm Height: 5'9" Respiratory Rate: 16 bpm Weight: 143 lbs 03/23/2011 Blood Pressure 1: 137/71 Code: 8480-6 Heart Rate 1: 57 bpm 03/08/2011 Blood Pressure 1: 154/70 Code: 8480-6 BMI: 20.8 Code: 98722-4 Heart Rate 1: 60 bpm Height: 5'9" Respiratory Rate: 16 bpm Weight: 141 lbs 03/01/2011 Blood Pressure 1: 178/80 Code: 8480-6 Blood Pressure 2: 168/70 Code: 8480-6 BMI: 24.1 Code: 85475-2 Heart Rate 1: 60 bpm Height: 5'9" Respiratory Rate: 16 bpm Weight: 163 lbs 02/01/2011 Blood Pressure 1: 162/84 Code: 8480-6 Heart Rate 1: 60 bpm Respiratory Rate: 16 bpm Weight: 144 lbs 01/27/2011 Blood Pressure 1: 138/54 Code: 8480-6 BMI: 21.1 Code: 73447-7 Heart Rate 1: 68 bpm Height: 5'9" Respiratory Rate: 16 bpm Weight: 143 lbs 01/26/2011 Blood Pressure 1: 148/86 Code: 8480-6 BMI: 21.3 Code: 78875-5 Heart Rate 1: 74 bpm Height: 5'9" Weight: 144 lbs 01/15/2011 Blood Pressure 1: 136/76 Code: 8480-6 BMI: 20.5 Code: 81600-9 Heart Rate 1: 70 bpm Height: 5'10" Weight: 141 lbs 01/06/2011 Blood Pressure 1: 148/72 Code: 8480-6 BMI: 20.2 Code: 42854-4 Heart Rate 1: 72 bpm Height: 5'10" Respiratory Rate: 12 bpm Weight: 139 lbs Functional Status No Functional Status data History of Present Illness Symptom Name Status Resu lt Effective Date Notes abdominal pain Onset of Symptom months ago [...] started him o n lisinopril. hypertension Quality [facility] onic 03/08/2011 Dr Merlos increased amlod ipine [...] Encounter Performer Loca tion Codes Date () 74055 EST. P ATIENT, LEVEL IV Diagnosis: Irritable bowel syndrome with constipation[ICD10: K58.1] Diagnosis: Other lesions of oral mucosa[ICD10: K13.79] Diagnosis: Dry mouth, unspecified[ICD10: R68.2] Diagnosis: Encounter for immunization[ICD10: Z23] Diagnosis: Essential (primary) hypertension[ICD10: I10] Ale Carlos MD, [facility] CPT-4: 65496 02/08/2018 ([id number]) 60234 EST. P ATIENT, LEVEL III Diagnosis: Slow transit constipation[ICD10: K59.01] Diagnosis: Dry mouth, unspecified[ICD10: R68.2] Nelly Carlos MD, [facility] CPT-4: 49089 01/19/2018 ([id number]) Miscellaneou s no charge Diagnosis: Acute pharyngitis, unspecified[ICD10: J02.9] Nelly Carlos MD, [facility] CPT-4: 51912 01/13/2018 ([id number]) 05049 EST. P ATIENT, LEVEL III Diagnosis: Candidal stomatitis[ICD10: B37.0] Diagnosis: Cough[ICD10: R05] Nelly Carlos MD, [facility] CPT-4: 86410 01/12/2018 ([id number]) 46085 EST. 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 P ATIENT, LEVEL IV Diagnosis: Irritable bowel syndrome with constipation[ICD10: K58.1] Diagnosis: Malignant neoplasm of prostate[ICD10: C61] Ale Carlos MD, [facility] CPT-4: 97176 11/14/2017 22939 EST. PATIENT, LEVEL IV Diagnosis: Slow transit constipation[ICD10: K59.01] Diagnosis: Gastro-esophageal reflux disease without esophagitis[ICD10: K21.9] Ruchi Carlos MD, [facility] CPT-4: 67528 2017 ([id number]) 60306 EST. P ATIENT, LEVEL IV Diagnosis: Essential (primary) hypertension[ICD10: I10] Diagnosis: Slow transit constipation[ICD10: K59.01] Diagnosis: Underweight[ICD10: R63.6] Diagnosis: Gastro-esophageal reflux disease without esophagitis[ICD10: K21.9] Ale Carlos MD, [facility] CPT-4: 95650 10/13/2017 ([id number]) 36347 EST. P ATIENT, LEVEL IV Diagnosis: Slow transit constipation[ICD10: K59.01] Diagnosis: Gastroparesis[ICD10: K31.84] Diagnosis: Gastro-esophageal reflux disease without esophagitis[ICD10: K21.9] Diagnosis: Dysuria[ICD10: R30.0] Ale Carlos MD, [facility] CPT-4: 47371 09/26/2017 ([id number]) 66739 EST. P ATIENT, LEVEL IV Diagnosis: Other abnormal glucose[ICD10: R73.09] Diagnosis: Slow transit constipation[ICD10: K59.01] Ale Carlos MD, [facility] CPT-4: 06541 09/12/2017 26653 EST. PATIENT, LEVEL III Diagnosis: Other fatigue[ICD10: R53.83] Ruchi Carlos MD, [facility] CPT-4: 72877 09/09/2017 ([id number]) 18840 EST. P ATIENT, LEVEL IV Diagnosis: Slow transit constipation[ICD10: K59.01] Diagnosis: Irritable bowel syndrome with constipation[ICD10: K58.1] Diagnosis: Essential (primary) hypertension[ICD10: I10] Ale Carlos MD, [facility] CPT-4: 13019 08/17/2017 ([id number]) 75276 EST. P ATIENT, LEVEL III Diagnosis: Slow transit constipation[ICD10: K59.01] Diagnosis: Gastroparesis[ICD10: K31.84] Ale Carlos MD, [facility] CPT-4: 80814 07/20/2017 [id number] EST. PATIENT, LEVEL III Diagnosis: Irritable bowel syndrome with constipation[ICD10: K58.1] Ruchi Carlos MD, [facility] CPT-4: 79232 07/01/2017 ([id number]) 31400 EST. P ATIENT, LEVEL IV Diagnosis: Essential (primary) hypertension[ICD10: I10] Diagnosis: Gas pain[ICD10: R14.1] Diagnosis: Generalized anxiety disorder[ICD10: F41.1] Diagnosis: Cervicalgia[ICD10: M54.2] Diagnosis: Pain in thoracic spine[ICD10: M54.6] Diagnosis: Unsteadiness on feet[ICD10: R26.81] Ale Carlos MD, [facility] CPT- 4: 73116 06/21/2017 ([id number]) 58796 EST. P ATIENT, LEVEL III Diagnosis: Essential (primary) hypertension[ICD10: I10] Ale Carlos MD, C CPT-4: 13728 03/21/2017 53962 EST. PATIENT, LEVEL III Diagnosis: Other allergic rhinitis[ICD10: J30.89] Nelly Carlos MD, [facility] CPT-4: 67809 03/08/2017 ([id number]) 51310 EST. P ATIENT, LEVEL III Diagnosis: Encounter for immunization[ICD10: Z23] Diagnosis: Other hypotension[ICD10: I95.89] Ale Carlos MD, [facility] CPT-4: 41335 01/25/2017 ([id number]) 48547 EST. P ATIENT, LEVEL III Diagnosis: Essential (primary) hypertension[ICD10: I10] Diagnosis: Acute recurrent maxillary sinusitis[ICD10: J01.01] Ale Carlos MD, C CPT-4: 19046 12/20/2016 ([id number]) 31669 EST. P ATIENT, LEVEL III Diagnosis: Acute recurrent ethmoidal sinusitis[ICD10: J01.21] Ale Carlos MD, C CPT-4: 45273 12/01/2016 ([id number]) 76656 EST. P ATIENT, LEVEL III Diagnosis: Bronchitis, not specified as acute or chronic[ICD10: J40] Diagnosis: Cough[ICD10: R05] Ale Carlos MD, [facility] CPT-4: 58674 11/25/2016 ([id number]) 61400 EST. P ATIENT, LEVEL III Diagnosis: Cough[ICD10: R05] Diagnosis: Bronchitis, not specified as acute or chronic[ICD10: J40] Diagnosis: Candidal esophagitis[ICD10: B37.81] Ale Carlos MD, [facility] CPT- 4: 06645 11/18/2016 ([id number]) 52266 EST. P ATIENT, LEVEL IV Diagnosis: Essential (primary) hypertension[ICD10: I10] Diagnosis: Mild cognitive impairment, so stated[ICD10: G31.84] Ale Carlos MD, C CPT-4: 22239 08/23/2016 ([id number]) 19010 EST. P ATIENT, LEVEL III Diagnosis: Essential (primary) hypertension[ICD10: I10] Ale Carlos MD, [facility] CPT-4: 85593 04/26/2016 ([id number]) Miscellaneou s no charge Diagnosis: Olecranon bursitis, right elbow[ICD10: M70.21] Nelly Carlos MD, [facility] CPT-4: 93040 02/09/2016 ([id number]) 40822 EST. P ATIENT, LEVEL III Diagnosis: Olecranon bursitis, right elbow[ICD10: M70.21] Nelly Carlos MD, [facility] CPT-4: 30153 02/03/2016 ([id number]) 55627 EST. P ATIENT, LEVEL III Diagnosis: Generalized abdominal tenderness[ICD10: R10.817] Ale Carlos MD, C CPT-4: 83333 01/26/2016 97304 EST. PATIENT, LEVEL IV Diagnosis: Other allergic rhinitis[ICD10: J30.89] Ruchi Carlos MD, [facility] CPT-4: 97989 01/21/2016 ([id number]) 00800 EST. P ATIENT, LEVEL IV Diagnosis: Essential (primary) hypertension[ICD10: I10] Diagnosis: Hypo-osmolality and hyponatremia[ICD10: E87.1] Ale Carlos MD, [facility] CPT-4: 66576 12/29/2015 ([id number]) 74292 EST. P ATIENT, LEVEL IV Diagnosis: Essential (primary) hypertension[ICD10: I10] Diagnosis: Mild cognitive impairment, so stated[ICD10: G31.84] Ale Carlos MD, [facility] CPT-4: 64307 09/02/2015 ([id number]) 37095 EST. P ATIENT, LEVEL IV Diagnosis: Mixed hyperlipidemia[ICD10: E78.2] Diagnosis: Generalized anxiety disorder[ICD10: F41.1] Diagnosis: Mild cognitive impairment, so stated[ICD10: G31.84] Diagnosis: Essential (primary) hypertension[ICD10: I10] Diagnosis: Encounter for immunization[ICD10: Z23] Ale Carlos MD, [facility] CPT-4: 79253 05/06/2015 ([id number]) 83107 EST. 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 P ATIENT, LEVEL IV Diagnosis: ESSENTIAL HYPERTENSION[ICD9: 401.9] Diagnosis: GENERALIZED ANXIETY DISEASE[ICD9: 300.02] Diagnosis: MILD COGNITIVE IMPAIREMT[ICD9: 331.83] Diagnosis: IRRITABLE COLON[ICD9: 564.1] Ale Carlos MD, [facility] CPT-4: 57373 12/04/2014 ([id number]) 77041 EST. P ATIENT, LEVEL IV Diagnosis: Abdominal pain[ICD9: 789.00] Diagnosis: GENERALIZED ANXIETY DISEASE[ICD9: 300.02] Diagnosis: Hyponatremia[ICD9: 276.1] Diagnosis: ESSENTIAL HYPERTENSION[ICD9: 401.9] Nelly Carlos MD, [facility] CPT-4: 94651 09/24/2014 ([id number]) 96138 EST. P ATIENT, LEVEL IV Diagnosis: ESSENTIAL HYPERTENSION[ICD9: 401.9] Diagnosis: Osteoarthritis[ICD9: 715.90] Diagnosis: Mild cognitive impairment with memory loss[ICD9: 331.83] Ale Carlos MD, C CPT-4: 95695 09/09/2014 ([id number]) 94211 EST. P ATIENT, LEVEL III Diagnosis: GENERALIZED ANXIETY DISEASE[ICD9: 300.02] Diagnosis: Depression[ICD9: 311] Ale Carlos MD, [facility] CPT-4: 38014 07/26/2014 ([id number]) 90871 EST. P ATIENT, LEVEL IV Diagnosis: ESSENTIAL HYPERTENSION[ICD9: 401.9] Diagnosis: GENERALIZED ANXIETY DISEASE[ICD9: 300.02] Diagnosis: MILD COGNITIVE IMPAIREMT[ICD9: 331.83] Ale Carlos MD, [facility] CPT-4: 42176 07/10/2014 ([id number]) 18794 EST. P ATIENT, LEVEL IV Diagnosis: Dizziness[ICD9: 780.4] Diagnosis: GENERALIZED ANXIETY DISEASE[ICD9: 300.02] Diagnosis: Depression[ICD9: 311] Diagnosis: ESSENTIAL HYPERTENSION[ICD9: 401.9] Diagnosis: Urinary frequency[ICD9: 788.41] Ale Carlos MD, [facility] CPT-4: 36844 06/06/2014 ([id number]) 74478 EST. P ATIENT, LEVEL IV Diagnosis: ESSENTIAL HYPERTENSION[ICD9: 401.9] Diagnosis: GENERALIZED ANXIETY DISEASE[ICD9: 300.02] Diagnosis: Mild cognitive impairment with memory loss[ICD9: 331.83] Ale Carlos MD, [facility] CPT-4: 94598 05/29/2014 ([id number]) 22212 EST. P ATIENT, LEVEL IV Diagnosis: Pneumonia[ICD9: 486] Diagnosis: COUGH[ICD9: 786.2] Diagnosis: Hyponatremia[ICD9: 276.1] Diagnosis: ALLERGIC RHINITIS[ICD9: 477.9] Ale Carlos MD, [facility] CPT-4: 47693 05/20/2014 ([id number]) 56756 EST. P ATIENT, LEVEL III Diagnosis: ESSENTIAL HYPERTENSION[ICD9: 401.9] Diagnosis: Cough[ICD9: 786.2] Ale Carlos MD, [facility] CPT-4: 88370 03/25/2014 ([id number]) 88790 EST. P ATIENT, LEVEL III Diagnosis: COUGH[ICD9: 786.2] Diagnosis: ALLERGIC RHINITIS[ICD9: 477.9] Nelly Carlos MD, [facility] CPT- 4: 19827 02/08/2014 ([id number]) 37194 EST. P ATIENT, LEVEL III Diagnosis: ESSENTIAL HYPERTENSION[ICD9: 401.9] Diagnosis: Nasal congestion[ICD9: 478.19] Ale Carlos MD, [facility] CPT-4: 92358 12/24/2013 ([id number]) 94481 EST. P ATIENT, LEVEL III Diagnosis: Seasonal allergies[ICD9: 477.9] Diagnosis: Nasal congestion[ICD9: 478.19] Diagnosis: ABNORMAL LOSS OF WEIGHT[ICD9: 783.21] Ale Carlos MD, [facility] CPT-4: 07216 11/20/2013 ([id number]) 62222 EST. P ATIENT, LEVEL III Diagnosis: ABNORMAL LOSS OF WEIGHT[ICD9: 783.21] Diagnosis: MALAISE AND FATIGUE[ICD9: 780.79] Diagnosis: Hyponatremia[ICD9: 276.1] Nelly Carlos MD, [facility] CPT- 4: 23941 10/30/2013 ([id number]) 36382 EST. P ATIENT, LEVEL III Diagnosis: Acute maxillary sinusitis[ICD9: 461.0] Diagnosis: COUGH[ICD9: 786.2] Ale Carlos MD, [facility] CPT-4: 19662 10/08/2013 ([id number]) 52352 EST. P ATIENT, LEVEL IV Diagnosis: ESSENTIAL HYPERTENSION[SNOMED: 79519632] Diagnosis: GENERALIZED ANXIETY DISEASE[ICD9: 300.02] Diagnosis: OSTEOARTH NOS-UNSPEC[ICD9: 715.90] Diagnosis: Coronary artery disease[ICD9: 414.00] Ale Carlos MD, [facility] CPT-4: 49835 06/18/2013 ([id number]) 29749 EST. P ATIENT, LEVEL III Diagnosis: ESSENTIAL HYPERTENSION[SNOMED: 84073930] Ale Carlos MD, [facility] CPT-4: 09511 04/04/2013 ([id number]) 46746 EST. P ATIENT, LEVEL IV Diagnosis: ESSENTIAL HYPERTENSION[SNOMED: 66694390] Diagnosis: Leukopenia[ICD9: 288.50] Diagnosis: Encounter for long-term (current) use of other medications[ICD9: V58.69] Ale Carlos MD, [facility] CPT-4: 20267 02/19/2013 ([id number]) 97283 EST. P ATIENT, LEVEL IV Diagnosis: ESSENTIAL HYPERTENSION[SNOMED: 44994415] Diagnosis: MILD COGNITIVE IMPAIREMT[ICD9: 331.83] Ale Carlos MD, [facility] CPT-4: 28047 10/16/2012 ([id number]) 84561 EST. P ATIENT, LEVEL IV Diagnosis: ESSENTIAL HYPERTENSION[SNOMED: 31148041] Diagnosis: GENERALIZED ANXIETY DISEASE[ICD9: 300.02] Diagnosis: IRRITABLE COLON[ICD9: 564.1] Ale Carlos MD, [facility] CPT-4: 63717 03/20/2012 99598 EST. PATIENT, LEVEL IV Diagnosis: ESSENTIAL HYPERTENSION[SNOMED: 62125462] Diagnosis: Osteoarthritis[ICD9: 715.90] Diagnosis: HYPERLIPIDEMIA[ICD9: 272.4] Ale Carlos MD, [facility] CPT-4: 40271 01/24/2012 05939 EST. PATIENT, LEVEL IV Diagnosis: ESSENTIAL HYPERTENSION[SNOMED: 41482274] Diagnosis: BPH W URINARY OBS/LUTS[ICD9: 600.01] Ale Carlos MD, [facility] CPT-4: 66148 12/20/2011 ([id number]) 85821 EST. P ATIENT, LEVEL III Diagnosis: Lump in the groin[ICD9: 789.30] Ale Carlos MD, [facility] CPT-4: 18136 12/09/2011 ([id number]) 51567 EST. P ATIENT, LEVEL IV Diagnosis: ESSENTIAL HYPERTENSION[SNOMED: 17993968] Diagnosis: Mild cognitive impairment[ICD9: 331.83] Ale Carlos MD, [facility] CPT-4: 90436 08/25/2011 ([id number]) 68914 EST. [facility], [facility] Diagnosis: ESSENTIAL HYPERTENSION[SNOMED: 04077385] Diagnosis: GENERALIZED ANXIETY DISEASE[ICD9: 300.02] Diagnosis: MILD COGNITIVE IMPAIREMT[ICD9: 331.83] Diagnosis: IRRITABLE COLON[ICD9: 564.1] Ale Carlos MD, [facility] CPT-4: 65452 06/23/2011 ([id number]) 29527 EST. 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 PATIENT, LEVEL I Diagnosis: ESSENTIAL HYPERTENSION[SNOMED: 34835598] Ale Carlos MD, [facility] CPT-4: 40048 03/23/2011 41201 EST. PATIENT, LEVEL III Diagnosis: ESSENTIAL HYPERTENSION[SNOMED: 96802021] Diagnosis: Laceration of finger, index[ICD9: 883.0] Ale Carlos MD, [facility] CPT-4: 30778 03/08/2011 21453 EST. PATIENT, LEVEL III Diagnosis: ESSENTIAL HYPERTENSION[SNOMED: 19374181] Diagnosis: Irritable bowel syndrome (IBS)[ICD9: 564.1] Ale Carlos MD, [facility] CPT-4: 17236 03/01/2011 88607 EST. PATIENT, LEVEL IV Diagnosis: Mild cognitive impairment with memory loss[ICD9: 331.83] Diagnosis: GENERALIZED ANXIETY DISEASE[ICD9: 300.02] Diagnosis: Bruising[ICD9: 924.9] Diagnosis: HYDROCELE[ICD9: 603.9] Ale Carlos MD, [facility] CPT-4: 21658 02/01/2011 73829 EST. PATIENT, LEVEL III Diagnosis: Testicular pain[ICD9: 608.9] Diagnosis: GENERALIZED ANXIETY DISEASE[ICD9: 300.02] Nelly Carlos MD, [facility] CPT-4: 01473 01/27/2011 25021 EST. PATIENT, LEVEL III Diagnosis: Arm bruise[ICD9: 923.9] Nelly Carlos MD, [facility] CPT-4: 83147 01/26/2011 OFFICE VISIT, NEW - LEVEL 4 Diagnosis: DIARRHEA[ICD9: 787.91] Diagnosis: Elevated liver function tests[ICD9: 790.6] Diagnosis: Abdominal discomfort[ICD9: 789.00] Ale Carlos MD, [facility] CPT- 4: 40616 01/06/2011 Plan of Care Planned Activity Notes [...] GI upset. 02/08/2018 Appointment: Ale Carlos WPtel: [facility]5 [facility] (30 min) Complex 02/08/2018 Patient Education: Patient Medication Summary Completed 02/08/2018 Patient Education: Hypertension Completed 02/08/2018 Appointment: Nelly Keen WPtel: [facility]5 [phone] (15 min) Moderate 02/02/2018 Visit Plan: Mijwdwksovdm-ylhszno-tr start trulance 3mg daily Dry mouth-biotene mouth spray 01/19/2018 App[facility]ment: [phone] ([facility] Complex 01/19/2018 Patient Education: Patient [...] concerns 01/12/2018 Appointment: Nelly Keen WPtel: [phone] [phone] [place] (15 min) Moderate 01/12/2018 Patient Education: Patient [...] be helping his symptoms. 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 I have recommended that he is to eat 1/2 a sandwich with his ensure at bedtime. 01/05/2018 Appointment: [phone] [place] (15 min) Moderate 01/05/2018 Patient Education: Patient Medication Summary Completed 01/05/2018 Appointment: [phone] (30 min) Complex 01/04/2018 Visit Plan: [...] 11/03/2017 Care Plan: Referral Order SNOMED-CT : 789804183 Pending 10/28/2017 Visit Plan: Constipation - uncontro [...] not improving. 2017 Appointment: Ruchi Agee WPtel: [address] [place], [place] [phone] (15 min) Moderate 2017 Patient Education: Patient [...] size. 10/13/2017 Appointment: [facility]el[phone] ([facility] min) Complex 10/13/2017 Patient Education: [...] the medication. 09/26/2017 Appointment: Ale Carlos [facility]Ptel[facility] [place] (15 min) Moderate 09/26/2017 Patient Education: Patient Medication Summary Completed 09/26/2017 Appointment: Ale Carlos WPtel: [facility] [place] (30 min) Complex 09/14/2017 Visit Plan: [...] the ER. 09/12/2017 Appointment: Ale Carlos WPtel: [facility]9 [facility] (30 min) Complex 09/12/2017 Patient Education: Patient Medication Summary Completed 09/12/2017 Visit Plan: Ongoing fatigue - persi stent - will check labs and treat as indicated - pt is to notify clinic if symptoms do not improve, if they worsen, or with any changes, questions, or concerns. 09/09/2017 Appointment: Ruchi Agee WPtel: [facility]1 [facility] (30 min) Complex 09/09/2017 Patient Education: [...] at home. 08/17/2017 Appointment: Ale Carlos WPtel: [facility] (15 min) Moderate 08/17/2017 Patient Education: [...] regular foods. 07/20/2017 Appointment: Ale Carlos WPtel: [facility]5 [facility] [place] (30 min) Complex 07/20/2017 Appointment: Ale Carlos WPtel: [address] [place], [place] [phone] [place] (30 min) Complex 07/20/2017 Patient Education: Patient Medication Summary Completed 07/20/2017 Appointment: Ale Carlos WPtel: [address] [place], [place] [phone] [place] (30 min) Complex 07/19/2017 Appointment: Ale Carlos WPtel: [facility]7 [facility] [place] (15 min) Moderate 07/18/2017 Visit [...] this regimen. 07/01/2017 Appointment: Ruchi Agee WPtel: [facility] ([facility] min) Complex 07/01/2017 Appointment: Ruchi Agee WPtel: [address] [place] [address] (30 min) Complex 07/01/2017 Patient Education: Patient [...] current management. 06/21/2017 Appointment: Ale Carlos WPtel: [phone] [facility] (30 min) Complex 06/21/2017 Patient Education: [...] home. 03/21/2017 Appointment: Ale Carlos WPtel: [phone] [facility] (30 min) Complex 03/21/2017 Patient Education: [...] spray. 03/08/2017 Appointment: Nelly Keen WPtel: [phone] [phone] [place] (30 min) Complex 03/08/2017 Patient [...] flu shot 01/25/2017 Appointment: Ale Carlos WPtel: 101 [facility] (30 min) Complex 01/25/2017 Patient Education: [...] not improving. 12/20/2016 Appointment: Ale Carlos WPtel: [facility]3 [facility] (30 min) Complex 12/20/2016 Patient Education: Patient Medication Summary Completed 12/20/2016 Patient Education: Hypertension Completed 12/20/2016 Appointment: Ruchi Agee WPtel: [facility] - Annual Wellness Visit 12/03/2016 Visit [...] acutely worsen. 11/25/2016 Appointment: Ale Carlos WPtel: [facility]0 [address] (15 min) Moderate 11/25/2016 Patient Education: [...] have thrush. 11/18/2016 Appointment: Ale Carlos WPtel: [facility]8 [facility] (15 min) Moderate 11/18/2016 Patient Education: [...] and namenda. labs to be done from [facility] 08/23/2016 Appointment: Ale Carlos WPtel: [facility] ([facility] min) Complex 08/23/2016 Patient Education: [...] at home. 04/26/2016 Appointment: Ale Carlos WPtel: [facility]6 [facility] [place] (30 min) Complex 04/26/2016 Patient Education: Patient Medication Summary Completed 04/26/2016 Visit Plan: Joint effusion - recomm ended drainage and referral to orthopedic surgeon for surgical debridement of bursa 02/17/2016 Appointment: Ale Carols WPtel: [facility]9 [facility] [place] (30 min) Complex 02/17/2016 Patient Education: Patient Medication Summary Completed 02/17/2016 Visit Plan: Bursitis-right elbow-dr healy today in the office- increase anti inflammatories for the next 5 days as directed-call if symptoms do not resolve, swelling returns or new symptoms develop-patient verbalized understanding of plan. 02/09/2016 Appointment: Nelly Keen WPtel: [phone] [place] (30 min) Complex 02/09/2016 Patient Education: Patient Medication Summary Completed 02/09/2016 Patient Education: Patient Medication Summary Completed 02/05/2016 Care Plan: Metabolic Pending 02/05/2016 Visit Plan: Bursitis-right elbow-dr healy today in the office- increase anti inflammatories for the next 5 days as directed-call if symptoms do not resolve, swelling returns or new symptoms develop-patient verbalized understanding of plan. 02/03/2016 Appointment: Nelly Keentel: [facility]5 [phone] (30 min) Complex 02/03/2016 Patient Education: Patient Medication Summary Completed 02/03/2016 Patient Education: Patient Medication Summary Completed 01/30/2016 Care Plan: Metabolic Due on , Pending 01/30/2016 Visit Plan: Abdominal pain - nausea - Pt to have IV fluids at hospital 01/26/2016 Appointment: Ale Carlos WPtel: [facility]5 [facility] (30 min) Complex 01/26/2016 Patient Education: [...] allergy spray. 01/21/2016 Appointment: Nelly Keen WPtel: [facility]5 [phone] (30 min) Complex 01/21/2016 Patient Education: Patient [...] treatment. 09/02/2015 Appointment: Ale [facility]Ptel[phone] (15 min) Moderate 09/02/2015 Patient Education: [...] today 05/06/2015 Appointment: Ale [facility]Ptel[facility] (15 min) Moderate 05/06/2015 Patient Education: Patient Medication Summary Completed 05/06/2015 Patient Education: Hypertension Completed 05/06/2015 Care Plan: COMPLETE CBC AUTOMATED LOINC : 91047-5 Ordered 05/06/2015 Visit Plan: Hypertension - well [...] medications. 03/05/2015 Appointment: Ale Carlos [facility]Ptel[phone] (30 min) Complex 03/05/2015 Patient Education: [...] improved. 12/04/2014 Appointment: Ale Carlos [facility]Ptel[phone] Follow up 12/04/2014 Patient Education: Patient [...] ABD & PELV 1/> REGNS LOINC : 92024-2 Ordered 09/24/2014 Visit Plan: Hypertension - well [...] THAT HE SHOULD NOT BE DRIVING TO [facility] 07/26/2014 Appointment: Sick 07/26/2014 Appointment: Sick 07/26/2014 [...] medication list. 07/10/2014 Appointment: Ale Carlos WPtel: [address] [place] [address] [place] Follow up 07/10/2014 Patient Education: Patient Medication Summary Completed 07/10/2014 Patient Education: Hypertension Completed 07/10/2014 Appointment: Ale Carlos WPtel: [address] [place] [address] [place] Follow up 06/20/2014 Appointment: Ale Carlos WPtel: [address] [place] [address] [place] Follow up 06/10/2014 Visit Plan: Anxiety [...] in blood pressure readings at home. Urinary ccsjufkcw-FLD-uzfhis flomax to bedtime Dizziness-stop hydrocodone and ativan [...] 3 WEEKS 05/29/2014 Appointment: Ale Carlos WPtel: [facility]5 [facility] [facility] 05/29/2014 Patient Education: Patient Medication Summary Completed 05/29/2014 Patient Education: Hypertension Completed 05/29/2014 Appointment: Ale Carlos WPtel: [facility]5 [facility] Lab Draw 05/23/2014 Patient Education: Patient Medication Summary Completed 05/23/2014 Visit Plan: Pneumonia - Pt has been diagnosed with pneumonia by physical exam. A chest xray has been ordered as have antibiotics. The pt is aware of the diagnosis and the need for acute treatment of this illness. A jbecyreq-rpeqo-qugdqgl flonase nasal spray Hyponatremia-increase gatorade as directed [...] for acute treatment of this illness. A bvmxekrw-qxisn-ggckmqg flonase nasal spray Hyponatremia-increase gatorade as directed 05/20/2014 Patient Education: Patient Medication Summary Completed 05/20/2014 Appointment: Ale Carlos WPtel: [phone] [facility] [place] Injection 03/26/2014 Patient Education: Patient Medication [...] Dr. Merlos. 03/25/2014 Appointment: Ale Carlos WPtel: [facility] Follow up 03/25/2014 Patient Education: Patient Medication Summary Completed 03/25/2014 Patient Education: Hypertension Completed 03/25/2014 Visit Plan: Xekyy-wrxrfwgkg-qaehyoi laryngeal reflux-RX for protonix (patient is on [...] home. 12/24/2013 Appointment: Ale Carlos WPtel: [phone] [facility] Follow up 12/24/2013 Patient Education: Patient [...] portion size. 11/20/2013 Appointment: Ale Carlos WPtel: [address] [place], [place] [phone] Follow up 11/20/2013 Patient Education: Patient Medication Summary Completed 11/20/2013 Appointment: Ale Carlos WPtel: [address] [place], [place] [phone] Follow up 11/06/2013 Visit Plan: Weight loss-increase po rtions-add snacks in the morning and afternoon-follow up in 3 weeks for weight check Low sodium-check labs-restart gatorade Hvbohrk-xvrdgk-nvjhf labs and UA 10/30/2013 Patient Education: Patient Medication Summary Completed 10/30/2013 Appointment: Ale Carlos WPtel: [address] [place], [place] [phone] Follow up 10/16/2013 Visit Plan: Sinusitis - [...] Merlos. 06/18/2013 Appointment: Ale Carlos WPtel: [phone] [facility] Follow up 06/18/2013 Patient Education: Patient [...] acute concerns. 04/04/2013 Appointment: Ale Carlos WPtel: [facility]5 [facility] Follow up 04/04/2013 Patient Education: Patient [...] report. 02/19/2013 Appointment: Ale Carlos WPtel: [phone] [facility] Follow up 02/19/2013 Patient Education: Patient [...] loss. 10/16/2012 Appointment: Ale Carlos WPtel: [phone] [facility] Follow up 10/16/2012 Patient Education: Patient [...] colon return. 06/19/2012 Appointment: Ale [facility]Ptel[facility] Follow [facility] 06/19/2012 Patient Education: Patient [...] the bentyl. 03/20/2012 Appointment: Ale Carlos WPtel: [facility]4 [facility] Follow up 03/20/2012 Patient Education: Patient Medication Summary Completed 03/20/2012 Patient Education: High Blood Pressure: Essential Hypertension Completed 03/20/2012 Appointment: Ale Carlos WPtel: [facility] [place] Follow up 02/22/2012 Visit Plan: [...] as needed. 01/24/2012 Appointment: Ale Carlos WPtel: [facility]7 [facility] [place] Follow up 01/24/2012 Patient Education: [...] the biopsy until okayed by his director peoplesoft.. I anticipate it will be at least 4-6 months before he can be off of the plavix and aspirin for additonal procedures unless it is of extreme urgency. 12/20/2011 Appointment: Ale Carlos WPtel: [address] [place], [place] [phone] Follow up 12/20/2011 Patient Education: Patient Medication Summary Completed 12/20/2011 Patient Education: High Blood Pressure: Essential Hypertension Completed 12/20/2011 Appointment: Ale Carlos WPtel: [address] [place], [place] [phone] [place] Other 12/13/2011 Visit Plan: Pain in groin post hear t cath with increased discomfort and increased size - will order an ultrasound for today. 12/09/2011 Appointment: Ale Carlos WPtel: [address] [place], [place] [phone] Other 12/09/2011 Patient Education: Patient Medication Summary [...] either medication. 08/25/2011 Appointment: Ale Carlos WPtel: [facility]2 [facility] Other 08/25/2011 Patient Education: Patient Medication [...] low doses. 06/23/2011 Appointment: Ale Carlos WPtel: [address] [place] [address] Other 06/23/2011 Patient Education: Patient Medication Summary Completed 06/23/2011 Patient Education: High Blood Pressure: Essential Hypertension Completed 06/23/2011 Appointment: Ale Carlos WPtel: [address] [place] [address] Other 04/26/2011 Visit Plan: Hypertension - well [...] seeds, etc. 04/19/2011 Appointment: Ale Carlos WPtel: [address] [place] [address] Other 04/19/2011 Patient Education: Patient Medication Summary Completed 04/19/2011 Patient Education: High Blood Pressure: Essential Hypertension Completed 04/19/2011 Patient Education: Diverticulosis Diet Completed 04/19/2011 Appointment: Nelly Keen [facility]Ptel: [phone] [place] 03/23/2011 Patient Education: Patient Medication Summary Completed 03/23/2011 Patient Education: High Blood Pressure: Essential Hypertension Completed 03/23/2011 Visit Plan: Record blood pressure a nd heart rate at home and drop the readings by the office in two weeks. No change in medications today. Laceration - removed suture today - pt to call if any complications arise. 03/08/2011 Appointment: Ale [facility]Ptel[facility] [facility] 03/08/2011 Patient Education: Patient Medication [...] day. 03/01/2011 Appointment: Ale Carlos [facility]Ptel[phone] [place] Other 03/01/2011 Patient Education: Patient Medication Summary Completed 03/01/2011 Patient Education: High Blood Pressure: Essential Hypertension Completed 03/01/2011 Appointment: Nelly [phone] [phone] [place] Injection 02/25/2011 Patient Education: Patient Medication Summary Completed 02/25/2011 Appointment: [facility] [place] [facility] 02/16/2011 Patient Education: Patient Medication Summary Completed 02/16/2011 Appointment: Ale Carlos WPtel: [address] [facility] [place] Injection 02/09/2011 Patient Education: Patient Medication Summary Completed 02/09/2011 Appointment: Ale Carlos WPtel: [facility] Follow up 02/02/2011 Visit Plan: Hydrocele [...] with his son - Kenji Dash in [place]. Upon our conversation vqem-uvg-xvrml, Kenji vocalized concerns for his Dad's memory. He stated that he has noticed his father not being as quick in his cognitive functioning, he has noticed some concerns with driving as well. He states that he will discuss these concerns with his parents and other siblings. 02/01/2011 Appointment: Ale Carlos WPtel: [facility] [place] Other 02/01/2011 Patient Education: Patient Medication [...] as needed. 01/27/2011 Appointment: Ale Carlos WPtel: [facility] [place] [address] [place] New Patient 01/27/2011 Patient Education: Patient Medication Summary Completed 01/27/2011 Visit Plan: Bruising/hematoma left arm-discussed natural and expected course of this diagnosis and to alert me if symptoms do not follow expected course or if any worse, Continue with ice/heat as needed for disc omfort. Call for any concerns. 01/26/2011 Appointment: Nelly Keen WPtel: [address] [place] [address] Other 01/26/2011 Patient Education: Patient Medication Summary [...] full course. 01/15/2011 Appointment: Nelly Keen WPtel: [address] [place] [address] Other 01/15/2011 Patient Education: Patient Medication Summary [...] diet. 01/06/2011 Appointment: [phone] [facility] [facility] 01/06/2011 Patient Education: Patient Medication Summary Completed 01/06/2011 Referral: External, Ordering Provider Referral Relationship Instructions Comment . Pneumonia - Pt has been diagnosed with pneumonia by physical exam. A chest xray has been ordered as have antibiotics. The pt is aware of the diagnosis and the need for acute treatment of this illness. Gasdotepa-swlyk-xmrfpid flonase nasal spray Hyponatremia-increase gatorade as directed [...] need for acute treatment of this illness. Ffmtybxqh-xdeko-zyufjug flonase nasal spray Hyponatremia-increase gatorade as directed [...] for weight check Low sodium-check labs-restart gatorade Okcbjgp-pihcuh-jcsrk labs and UA . Hypertension and C [...] the biopsy until okayed by his director peoplesoft.. I anticipate it will be at least [...] [facility] - if it is expensive get the [...] be helping his symptoms. 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 I have recommended that he is [...] twice HTN-well controlled-no change in treatment . Iypfp-qcvfnjwoe-qf spect laryngeal reflux-RX for protonix (patient is [...] the lactose free diet. get Aspercreme from [employer] for your upper neck/upper back. lactaid pills - take before you drink milk or eat cheese or ice cream or yogurt use gas-ex one pill three times daily . Neck and upper back pain and gait unst eadiness - referral to [facility] for upper and low back pain and left arm pain and have gait eval. get Aspercreme from [employer] for your upper neck/upper back. Abdominal upset/cramping [...] THE EVENING OF 01/15/11 Appointment [address] [place] [address] Carlos. Recommend Lactobacillus 1 orally [...] with his son - Kenji Dash in [place]. Upon our conversation veuv-ytb-fkqvl, Kenji vocalized concerns for his Dad's memory. He stated that he has noticed his father not being as quick in his cognitive functioning, he has noticed some concerns with driving as well. He states that he will discuss these concerns with his parents and other siblings. stop losartan - [facility] blood pressure and heart rate twice [...] spray -it is over the counter . Mwjqtlrfcaxf-unjupge-bkevkns trulance 3mg daily Dry mouth-biotene mouth spray [...] THAT HE SHOULD NOT BE DRIVING TO [place] Pt is to try 1/2 pil l [...] in blood pressure readings at home. Urinary nivdaykar-UON-yuclbe flomax to bedtime Dizziness-stop hydrocodone and ativan [...]
--- OUTSIDE RECORDS SUMMARY | 2019-07-16 08:29 | XMS REPORT ---
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 Name Role Phone ORACIO Smart Unavailable PROBLEMS Unknown Problems ALLERGIES No Information ENCOUNTERS Encounter Location Date Diagnosis [facility] [address] [id number] [address] [place] [phone] Aug, [facility] [address] [id number] [address] [place] [phone] Aug, [facility] [address] [id number] [address] [place] [phone] Dec, [facility] [address] [id number] [address] [place] [phone] Nov, [facility] [address] [id number] [address] [place] [phone] Oct, [facility] [address] [id number] [address] [place] [phone] Oct, [facility] [address] [id number] [address] [place] [phone] September, [facility] [address] [id number] [address] [place] [phone] Mar, [facility] [address] [id number] [address] [place] [phone] Mar, [facility] [address] [id number] [address] [place] [phone] Mar, [facility] [address] [id number] [address] [place] [phone] Mar, [facility] [address] [facility] [id number] [address] [place] [phone] Jul, [facility] [address] [facility] [id number] [address] [place] [phone] Jun, IMMUNIZATIONS No Known Immunizations SOCIAL HISTORY Never Assessed REASON FOR VISIT PLAN OF CARE VITAL SIGNS MEDICATIONS Unknown Medications RESULTS No Results PROCEDURES No Known procedures INSTRUCTIONS MEDICATIONS ADMINISTERED No Known Medications
--- OUTSIDE RECORDS SUMMARY | 2019-07-16 08:29 | XMS REPORT ---
Author Author Kenneth Rodriguez Doctor Organization [facility] Address Unknown Phone Unavailable Care Team Providers Care Property Claims Manager Name Role Phone Migration, Doctor Unavailable Unavailable PROBLEMS Unknown Problems ALLERGIES Substance Reaction Event Type Date Status Toradol Unknown Drug Allergy Aug, Active ENCOUNTERS Encounter Location Date Diagnosis [facility] [address] [id number] [address] [place] [phone] Aug, [facility] [address] [id number] [address] [place] [phone] Aug, [facility] [address] [facility] [id number] [address] [place] [phone] Dec, [facility] [address] [id number] [address] [place] [phone] Nov, [facility] [address] [id number] [address] [place] [phone] Oct, [facility] [address] [id number] [address] [place] [phone] Oct, [facility] [address] [facility] [id number] [address] [place] [phone] September, [facility] [address] [id number] [address] [place] [phone] Mar, [facility] [address] [id number] [address] [place] [phone] Mar, [facility] [address] [facility] [id number] [address] [place] [phone] Mar, [facility] [address] [id number] [address] [place] [phone] Mar, [facility] [address] [facility] [id number] [address] [place] [phone] Jul, [facility] [address] [facility] [id number] [address] [place] [phone] Jun, IMMUNIZATIONS No Known Immunizations SOCIAL HISTORY Never Assessed REASON FOR VISIT [facility] PLAN OF CARE VITAL SIGNS MEDICATIONS Medication Instructions Dosage Frequency Start Date End Date Duration S mando Fluocinonide 0.05 % OintmentPRN Jun, Active Lisinopril 10 mg 1 Tablet by Oral route 1 time per day 2 Jun, 2011 Active Lorazepam 0.5 mg Tablet by Oral route 1 time per day Jun, Active Aspirin 81 mg 1 Capsule by Oral route 1 time per day Jun, Active amlodipine 5 mg 2 Tablet by Oral route 1 time per day Jun, Active Mobic 15 mg Tablet by Oral route 1 time per day Mar, Active Vitamin D 1,000 unit 1 Tablet by Oral route 1 time per day Jun, Active Namenda 10 mg 1 Tablet by Oral route 1 time per day 2011 Active Plavix 75 mg 1 Tablet by Oral route 1 time per day 2011 Active Proscar 5 mg 1 Tablet by Oral route 1 time per day 2011 Active Flomax 0.4 mg 1 Capsule by Oral route 1 time per day Jun, Active Bentyl 10 mg 1 Capsule by Oral ro [place] 1 time per dayevry 6 hours if needed for bowel spasms Jun, Active Simvastatin 20 mg 1 Tablet by Oral route 1 time per day Jun, Active Mirtazapine 15 mg 0.5 Tablet by Oral route 1 ilene e per day QHS 6 nights weekly Dec, Active Aricept 5 mg 1 Tablet by Oral route 1 time per day 2011 Active RESULTS No Results PROCEDURES No Known procedures INSTRUCTIONS MEDICATIONS ADMINISTERED No Known Medications
--- OUTSIDE RECORDS SUMMARY | 2019-07-16 08:31 | XMS REPORT | Continuity of Care Document ---
Author Organization Unknown Address Unknown Phone Unavailable Allergies Active Description Code Type Severity Reaction Onset Reported/Identified Relationship to Patient Clinical Status Yes Toradol Drug Allergy 03/28/2012 Yes Toradol Drug Allergy N/A N/A 03/28/2012 Yes butorphanol [id number] Drug Aller gy Unknown N/A 08/22/2017 Yes ketorolac [id number] Drug Allergy Mild STATES CAUSES M 08/22/2017 Medications There is no data. Problems Date Dx Coded Attending Type Code Diagnosis Diagnosed By 04/07/1127 GEORGIE GRIMES, DAYDAY Valdez Ot M54.5 LOW BACK PAIN 04/07/1127 DAYDAY JACQUES MD Ot M54.6 PAIN IN THORACIC SPINE 04/07/1127 DAYDAY JACQUES MD Ot M79.602 PAIN IN LEFT ARM 02/02/2008 ORACIO JACKSON DO 300 .00 AN ANXIETY UNSPEC 02/02/2008 ORACIO JACKSON DO 307 .47 SI DYSSOMNIA NOS 02/02/2008 300.00 AN ANXIETY UNSPEC 02/02/2008 307.47 SI DYSSOMNIA NOS 02/02/2008 300.00 AN ANXIETY UNSPEC 02/02/2008 307.47 SI DYSSOMNIA NOS 11/20/2010 Ot 272.4 HYPE RLIPIDEMIA NEC/NOS 11/20/2010 Ot 300.00 ANX IETY STATE NOS 11/20/2010 Ot 401.9 HYPE RTENSION NOS 11/20/2010 Ot 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 11/20/2010 Ot 414.8 CHR ISCHEMIC HRT DIS NEC 11/20/2010 Ot 427.89 CAR DIAC DYSRHYTHMIAS NEC 11/20/2010 Ot 433.10 CAR OTID ARTERY OCCLUSION W O CEREBRAL IN 11/20/2010 Ot 477.9 NAYE RGIC RHINITIS NOS 11/20/2010 Ot 600.90 HYP ERPLASIA OF PROSTATE, UNSPEC, W/O URI 11/20/2010 Ot 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 11/20/2010 Ot 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, CEREBRAL INFARCTION 11/20/2010 Ot V45.82 PER CUTANEOUS TRANSLUM CORON ANGIOPLASTY 12/26/2010 Ot 787.91 JACKY RRHEA 12/26/2010 Ot 789.09 ABD OMINAL PAIN, OTHER SPECIFIED SITE 01/13/2011 Ot 276.1 HYPO SMOLALITY 01/13/2011 Ot 780.79 OTH MALAISE FATIGUE 01/13/2011 Ot 789.00 ABD OMINAL PAIN, UNSPECIFIED SITE 01/13/2011 Ot 791.9 ABN URINE FINDINGS NEC 01/20/2011 Ot 294.8 OTH PERSISTENT MENTAL DIS DUE TO COND CL 01/20/2011 Ot 300.00 ANX IETY STATE NOS 01/20/2011 Ot 355.1 NATASHA LGIA PARESTHETICA 01/20/2011 Ot 401.9 HYPE RTENSION NOS 01/20/2011 Ot 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 01/20/2011 Ot 600.00 HYP ERTROPHY (BENIGN) OF PROSTATE W/O URI 01/20/2011 Ot 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, CEREBRAL INFARCTION 01/20/2011 Ot V45.82 PER CUTANEOUS TRANSLUM CORON ANGIOPLASTY 01/25/2011 Ot 729.5 PAIN IN LIMB 01/25/2011 Ot 996.74 OTH COMPL DUE TO OTH VASCULAR DEVICE,IMP 03/29/2011 Ot 787.02 TALYA SEA ALONE 03/29/2011 Ot 787.99 OTH ER GI SYSTEM SYMPTOMS 03/29/2011 Ot 789.00 ABD OMINAL PAIN, UNSPECIFIED SITE 12/01/2011 Ot 272.4 HYPE RLIPIDEMIA NEC/NOS 12/01/2011 Ot 300.00 ANX IETY STATE NOS 12/01/2011 Ot 311 DEPRES SIVE DISORDER NEC 12/01/2011 Ot 331.83 MIL D COGNITIVE IMPAIRMENT, SO STATED 12/01/2011 Ot 401.9 HYPE RTENSION NOS 12/01/2011 Ot 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 12/01/2011 Ot 564.00 UNS PEC CONSTIPATION 12/01/2011 Ot 600.00 HYP ERTROPHY (BENIGN) OF PROSTATE W/O URI 12/01/2011 Ot 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, CEREBRAL INFARCTION 05/18/2014 DERICK GRIMES, YANETH T Ot 465.9 ACUTE URI NOS 05/18/2014 DERICK GRIMES, YANETH T Ot 786.05 SHORTNESS OF BREATH 06/08/2014 RAMA PAGAN FIRE FIGHTING EQUIPMENT SPECIALIST Ot 786.2 06/17/2014 RAMA PAGAN FIRE FIGHTING EQUIPMENT SPECIALIST Ot 786.2 08/31/2014 ZAYDA NAIR DO Ot [...] OTH SPECIFIED GASTRITIS,W/O MENTION OF H 10/09/2014 OLIVER ARIAS MD Ot 562.10 DIVERTICULOSIS COLON (W/O MENT OF HEMORR 10/09/2014 OLIVER ARIAS MD Ot 787.99 OTHER GI SYSTEM SYMPTOMS 10/17/2014 RAMA PAGAN FIRE FIGHTING EQUIPMENT SPECIALIST Ot 789.00 10/29/2014 RAMA PAGAN FIRE FIGHTING EQUIPMENT SPECIALIST Ot 789.00 12/20/2014 HARPAL COBURN MD Ot 600.0 0 12/20/2014 HARPAL COBURN MD Ot V72.6 3 12/20/2014 HARPAL COBURN MD Ot V74.8 12/26/2014 HARPAL COBURN MD Ot 414.0 0 CORON ATHEROSCLER NOS TYPE VESSEL, NATIV 12/26/2014 HARPAL COBURN MD Ot 600.0 0 HYPERTROPHY (BENIGN) OF PROSTATE W/O URI 01/08/2015 HARPAL COBURN MD Ot 600.0 0 01/08/2015 IRISH GRIMES, HARPAL Valdez Ot V72.6 3 01/08/2015 IRISH GRIMES, HARPAL José Miguel Ot V74.8 01/16/2015 IRISH GRIMES, HARPAL Valdez Ot 600.0 0 01/16/2015 IRISH GRIMES, HARPAL A Ot V72.6 3 01/16/2015 IRISH GRIMES, HARPAL Valdez Ot V74.8 01/26/2016 Ot 427.9 CARD IAC DYSRHYTHMIA NOS 01/26/2016 Ot 790.5 ABN SERUM ENZY LEVEL NEC 01/26/2016 Ot 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 2 COUGH 01/26/2016 ANJALI GRIMES FACC, ALI FACP CCDS Ot 414.00 CORON ATHEROSCLER NOS TYPE VESSEL, NATIV 01/26/2016 ANJALI GRIMES FACC, ALI FACP CCDS Ot 427.89 CARDIAC DYSRHYTHMIAS NEC 01/26/2016 ANJALI GRIMES FACC, ALI FACP CCDS Ot 434.91 CEREBRAL ART OCCLUSION NOS W CEREBRAL IN 01/26/2016 ANJALI GRIMES FACC, ALI FACP CCDS Ot 440.9 ATHEROSCLEROSIS NOS 01/26/2016 RAMA PAGAN FIRE FIGHTING EQUIPMENT SPECIALIST Ot 786.2 COUGH 01/26/2016 RAMA PAGAN FIRE FIGHTING EQUIPMENT SPECIALIST Ot 789.00 ABDOMINAL PAIN, UNSPECIFIED SITE 01/26/2016 OLIVER ARIAS MD Ot V72.84 EXAM PRE-OPERATIVE NOS 01/26/2016 IRISH GRIMES, HARPAL Valdez Ot 600.0 0 HYPERTROPHY (BENIGN) OF PROSTATE W/O URI 01/26/2016 HARPAL COBURN MD Ot V72.6 3 PRE-PROCEDURAL LABORATORY EXAMINATION 01/26/2016 HARPAL COBURN MD Ot V74.8 SCREEN-BACTERIAL DIS NEC 01/28/2016 GEORGIE GRIMES, DAYDAY Valdez Ot E86.0 DEHYDRATION 02/18/2016 DAYDAY JACQUES MD Ot E86.0 DEHYDRATION 02/26/2016 DAYDAY JACQUES MD Ot E86.0 DEHYDRATION 03/24/2016 GALE MAY Ot E78.4 OTHER HYPERLIPIDEMIA 03/24/2016 GALE MAY Ot 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 04/12/2016 ALYSA ARCHIBALD MD Ot M70.21 OLECRANON BURSITIS, RIGHT ELBOW 04/12/2016 ALYSA ARCHIBALD MD Ot Z01.818 ENCOUNTER FOR OTHER PREPROCEDURAL EXAMIN 04/12/2016 ALYSA ARCHIBALD MD Ot Z11.2 ENCOUNTER FOR SCREENING FOR OTHER BACTER 04/13/2016 GALE MAY Ot E78.4 OTHER HYPERLIPIDEMIA 04/13/2016 GALE MAY Ot 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 04/14/2016 ALYSA ARCHIBALD MD Ot E78.5 HYPERLIPIDEMIA, UNSPECIFIED 04/14/2016 ALYSA ARCHIBALD MD Ot F41.9 ANXIETY DISORDER, UNSPECIFIED 04/14/2016 ALYSA ARCHIBALD MD Ot I1 0 ESSENTIAL (PRIMARY) HYPERTENSION 04/14/2016 ALYSA ARCHIBALD MD Ot 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 04/14/2016 ALYSA ARCHIBALD MD Ot 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 04/14/2016 ALYSA ARCHIBALD MD, Ot K57.90 DVRTCLOS OF INTEST, PART UNSP, W/O PERF 04/14/2016 ALYSA ARCHIBALD MD, Ot M19.90 UNSPECIFIED OSTEOARTHRITIS, UNSPECIFIED 04/14/2016 ALYSA ARCHIBALD MD Ot M70.21 OLECRANON BURSITIS, RIGHT ELBOW 04/14/2016 ALYSA ARCHIBALD MD Ot Z79.899 OTHER RETURN TO SERVICE INSPECTOR (CURRENT) DRUG THERAPY 04/14/2016 ALYSA ARCHIBALD MD Ot Z86.73 PRSNL HX OF TIA (TIA), AND CEREB INFRC W 04/15/2016 ALYSA ARCHIBALD MD Ot E78.5 HYPERLIPIDEMIA, UNSPECIFIED 04/15/2016 ALYSA ARCHIBALD MD, Ot F41.9 ANXIETY DISORDER, UNSPECIFIED 04/15/2016 ALYSA ARCHIBALD MD Ot I1 0 ESSENTIAL (PRIMARY) HYPERTENSION 04/15/2016 ALYSA ARCHIBALD MD Ot 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 04/15/2016 ALYSA ARCHIBALD MD Ot 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 04/15/2016 ALYSA ARCHIBALD MD Ot K57.90 DVRTCLOS OF INTEST, PART UNSP, W/O PERF 04/15/2016 ALYSA ARCHIBALD MD, Ot M19.90 UNSPECIFIED OSTEOARTHRITIS, UNSPECIFIED 04/15/2016 ALYSA ARCHIBALD MD Ot M70.21 OLECRANON BURSITIS, RIGHT ELBOW 04/15/2016 ALYSA ARCHIBALD MD Ot Z79.899 OTHER RETURN TO SERVICE INSPECTOR (CURRENT) DRUG THERAPY 04/15/2016 ALYSA ARCHIBALD MD Ot Z86.73 PRSNL HX OF TIA (TIA), AND CEREB INFRC W 04/18/2016 ALYSA ARCHIBALD MD Ot M70.21 OLECRANON BURSITIS, RIGHT ELBOW 04/18/2016 ALYSA ARCHIBALD MD Ot Z01.818 ENCOUNTER FOR OTHER PREPROCEDURAL EXAMIN 04/18/2016 ALYSA ARCHIBALD MD Ot Z11.2 ENCOUNTER FOR SCREENING FOR OTHER BACTER 04/21/2016 GALE MAY Ot E78.4 OTHER HYPERLIPIDEMIA 04/21/2016 GALE MAY Ot 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 11/08/2016 LUCAS CALLES APRN Ot B30 .9 VIRAL CONJUNCTIVITIS, UNSPECIFIED 11/08/2016 LUCAS CALLES APRN Ot E78.00 PURE HYPERCHOLESTEROLEMIA, UNSPECIFIED 11/08/2016 LUCAS CALLES APRN Ot F03.90 UNSPECIFIED DEMENTIA 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L 11/08/2016 LUCAS CALLES APRN Ot I10 ESSENTIAL (PRIMARY) HYPERTENSION 11/08/2016 LUCAS CALLES APRN Ot K21 .9 GASTRO-ESOPHAGEAL REFLUX DISEASE WITHOUT 11/08/2016 CALLES, PETER J GERMINATION WORKER Ot M19.90 UNSPECIFIED OSTEOARTHRITIS, UNSPECIFIED 11/08/2016 LUCAS CALLES GERMINATION WORKER Ot N40 .1 BENIGN PROSTATIC HYPERPLASIA WITH LOWER 11/08/2016 LUCAS CALLES GERMINATION WORKER Ot R09.81 NASAL CONGESTION 11/08/2016 LUCAS CALLES GERMINATION WORKER Ot Z79.82 RETURN TO SERVICE INSPECTOR (CURRENT) USE OF ASPIRIN 11/08/2016 LUCAS CALLES APRN Ot Z86.73 PRSNL HX OF TIA (TIA), AND CEREB INFRC W 11/08/2016 LUCAS CALLES APRN Ot Z95 .5 PRESENCE OF CORONARY ANGIOPLASTY IMPLANT 11/10/2016 LUCAS CALLES APRN Ot B30 .9 VIRAL CONJUNCTIVITIS, UNSPECIFIED 11/10/2016 LUCAS CALLES APRN Ot E78.00 PURE HYPERCHOLESTEROLEMIA, UNSPECIFIED 11/10/2016 LUCAS CALLES GERMINATION WORKER Ot I10 ESSENTIAL (PRIMARY) HYPERTENSION 11/10/2016 LUCAS CALLES APRN Ot K21 .9 GASTRO-ESOPHAGEAL REFLUX DISEASE WITHOUT 11/10/2016 LUCAS CALLES APRN Ot M19.90 UNSPECIFIED OSTEOARTHRITIS, UNSPECIFIED 11/10/2016 LUCAS CALLES APRN Ot N40 .1 BENIGN PROSTATIC HYPERPLASIA WITH LOWER 11/10/2016 LUCAS CALLES APRN Ot R09.81 NASAL CONGESTION 11/10/2016 LUCAS CALLES APRN Ot Z79.82 [facility] (CURRENT) USE OF ASPIRIN 11/10/2016 LUCAS CALLES APRN Ot Z86.73 PRSNL HX OF TIA (TIA), AND CEREB INFRC W 11/10/2016 LUCAS CALLES APRN Ot Z95 .5 PRESENCE OF CORONARY ANGIOPLASTY IMPLANT 11/12/2016 NATALYA MORAN GERMINATION WORKER Ot R0 5 COUGH 12/03/2016 NATALYA MORAN GERMINATION WORKER Ot R0 5 COUGH 12/10/2016 NATALYA MORAN GERMINATION WORKER Ot R0 5 COUGH 12/31/2016 GEORGIE GRIMES, DAYDAY Valdez Ot R09.82 POSTNASAL DRIP 12/31/2016 GEORGIE GRIMES, DAYDAY Valdez Ot R93.8 ABNORMAL FINDINGS ON DIAGNOSTIC IMAGING 01/03/2017 GEORGIE GRIMES, DAYDAY Valdez Ot R09.82 POSTNASAL DRIP 01/03/2017 DAYDAY JACQUES MD Ot R93.8 ABNORMAL FINDINGS ON DIAGNOSTIC IMAGING 03/09/2017 SEJAL WILSON MD Ot E78. 00 PURE HYPERCHOLESTEROLEMIA, UNSPECIFIED 03/09/2017 SEJAL WILSON MD Ot F03. 90 UNSPECIFIED DEMENTIA 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L 03/09/2017 SEJAL WILSON MD Ot I10 ESSENTIAL (PRIMARY) HYPERTENSION 03/09/2017 SEJAL WILSON MD Ot I25. 10 ATHSCL HEART DISEASE OF CIRCLE CORONARY 03/09/2017 SEJAL WILSON MD Ot M19. 90 UNSPECIFIED OSTEOARTHRITIS, UNSPECIFIED 03/09/2017 SEJAL WILSON MD Ot N40. 0 BENIGN PROSTATIC HYPERPLASIA WITHOUT LOW 03/09/2017 SEJAL WILSON MD Ot S01.512A LACERATION WITHOUT FOREIGN BODY OF ORAL 03/09/2017 SEJAL WILSON MD Ot X58.XXXA EXPOSURE TO OTHER SPECIFIED FACTORS, INI 03/09/2017 SEJAL WILSON MD Ot Z23 ENCOUNTER FOR IMMUNIZATION 03/09/2017 SEJAL WILSON MD Ot Z79. 02 RETURN TO SERVICE INSPECTOR (CURRENT) USE OF ANTITHROMBOTI 03/09/2017 SEJAL WILSON MD Ot Z79. 82 [facility] (CURRENT) USE OF ASPIRIN 03/09/2017 SEJAL WILSON MD Ot Z90. 89 ACQUIRED ABSENCE OF OTHER ORGANS 03/09/2017 SEJAL WILSON MD Ot Z95. 5 PRESENCE OF CORONARY ANGIOPLASTY IMPLANT 03/15/2017 SEJAL WILSON MD Ot E78. 00 PURE HYPERCHOLESTEROLEMIA, UNSPECIFIED 03/15/2017 SEJAL WILSON MD Ot F03. 90 UNSPECIFIED DEMENTIA 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L 03/15/2017 SEJAL WILSON MD Ot I10 ESSENTIAL (PRIMARY) HYPERTENSION 03/15/2017 SEJAL WILSON MD Ot I25. 10 ATHSCL HEART DISEASE OF CIRCLE CORONARY 03/15/2017 SEJAL WILSON MD Ot M19. 90 UNSPECIFIED OSTEOARTHRITIS, UNSPECIFIED 03/15/2017 SEJAL WILSON MD Ot N40. 0 BENIGN PROSTATIC HYPERPLASIA WITHOUT LOW 03/15/2017 SEJAL WILSON MD Ot S01.512A LACERATION WITHOUT FOREIGN BODY OF ORAL 03/15/2017 SEJAL WILSON MD Ot X58.XXXA EXPOSURE TO OTHER SPECIFIED FACTORS, INI 03/15/2017 SEJAL WILSON MD Ot Z79. 02 [facility] (CURRENT) USE OF ANTITHROMBOTI 03/15/2017 SEJAL WILSON MD Ot Z79. 82 RETURN TO SERVICE INSPECTOR (CURRENT) USE OF ASPIRIN 03/15/2017 SEJAL WILSON MD Ot Z90. 89 ACQUIRED ABSENCE OF OTHER ORGANS 03/15/2017 SEJAL WILSON MD Ot Z95. 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 03/25/2017 ANJALI GRIMES FACC, ALI FACP CCDS Ot R00.1 BRADYCARDIA, UNSPECIFIED 03/25/2017 ANJALI GRIMES FACC, ALI FACP CCDS Ot Z86.79 PERSONAL HISTORY OF OTHER DISEASES OF TH 04/01/2017 ANJALI GRIMES FACC, ALI FACP CCDS Ot E78.4 OTHER HYPERLIPIDEMIA 04/01/2017 ANJALI GRIMES FACC, ALI FACP CCDS Ot 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 04/01/2017 ANJALI GRIMES FACC, ALI FACP CCDS Ot 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 04/01/2017 ANJALI GRIMES FACRigoberto, ALI FACP CCDS Ot R00.1 BRADYCARDIA, UNSPECIFIED 04/01/2017 ANJALI GRIMES FACC, ALI FACP CCDS Ot Z86.79 PERSONAL HISTORY OF OTHER DISEASES OF 06/07/2017 HARPAL COBURN MD Ot C61 MALIGNANT NEOPLASM OF PROSTATE 06/10/2017 HARPAL COBURN MD Ot C61 MALIGNANT NEOPLASM OF PROSTATE 06/25/2017 ZAYDA NAIR DO Ot C61 MALIGNANT NEOPLASM OF PROSTATE 06/25/2017 ZAYDA NAIR DO Ot E78.00 PURE HYPERCHOLESTEROLEMIA, UNSPECIFIED 06/25/2017 ZAYDA NAIR DO Ot F03.90 UNSPECIFIED DEMENTIA 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L 06/25/2017 ZAYDA NAIR DO Ot I10 ESSENTIAL (PRIMARY) HYPERTENSION 06/25/2017 ZAYDA NAIR DO Ot 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 06/25/2017 JOANIE DO, ZAYDA K Ot 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 06/25/2017 JOANIE , ZAYDA K Ot K59.00 CONSTIPATION, UNSPECIFIED 06/25/2017 JOANIE ZAYDA K Ot N40.1 BENIGN PROSTATIC HYPERPLASIA WITH LOWER 06/25/2017 GIRMA NAIR DOA K Ot R07.9 CHEST PAIN, UNSPECIFIED 06/25/2017 JOANIE MEDEIROS ZAYDA K Ot Z79.82 RETURN TO SERVICE INSPECTOR (CURRENT) USE OF ASPIRIN 06/25/2017 JOANIE MEDEIROS ZAYDA K Ot Z86.73 PRSNL HX OF TIA (TIA), AND CEREB INFRC W 06/25/2017 JAONIE MEDEIROS ZAYDA K Ot Z87.19 PERSONAL HISTORY OF OTHER DISEASES OF 06/25/2017 JOANIE MEDEIROS ZAYDA K Ot Z90.79 ACQUIRED ABSENCE OF OTHER GENITAL ORGAN( 06/25/2017 JOANIE MEDEIROS ZAYDA K Ot Z90.89 ACQUIRED ABSENCE OF OTHER ORGANS 06/25/2017 JOANIE MEDEIROS ZAYDA K Ot Z95.5 PRESENCE OF CORONARY ANGIOPLASTY IMPLANT 06/26/2017 JOANIE MEDEIROS ZAYDA K Ot E78.00 PURE HYPERCHOLESTEROLEMIA, UNSPECIFIED 06/26/2017 JOANIE MEDEIROS ZAYDA K Ot I10 ESSENTIAL (PRIMARY) HYPERTENSION 06/26/2017 JOANIE MEDEIROS ZAYDA K Ot 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 06/26/2017 JOANIE MEDEIROS ZAYDA K Ot 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 06/26/2017 JOANIE , ZAYDA K Ot K59.00 CONSTIPATION, UNSPECIFIED 06/26/2017 JOANIE MEDEIROS ZAYDA K Ot Z79.82 RETURN TO SERVICE INSPECTOR (CURRENT) USE OF ASPIRIN 06/26/2017 JOANIE MEDEIROS ZAYDA K Ot Z85.46 PERSONAL HISTORY OF MALIGNANT NEOPLASM O 06/26/2017 JOANIE MEDEIROS ZAYDA K Ot Z86.73 PRSNL HX OF TIA (TIA), AND CEREB INFRC W 06/26/2017 JOANIE MEDEIROSGIRMAA K Ot Z87.19 PERSONAL HISTORY OF OTHER DISEASES OF TH 06/26/2017 JOANIE MEDEIROSGIRMAA K Ot Z88.6 ALLERGY STATUS TO ANALGESIC AGENT STATUS 06/26/2017 JOANIE MEDEIROSZAYDA K Ot Z88.8 ALLERGY STATUS TO OTH DRUG/MEDS/BIOL SUB 06/26/2017 JOANIE ZAYDA MEDEIROS Ot Z90.89 ACQUIRED ABSENCE OF OTHER ORGANS 06/26/2017 JOANIE ZAYDA MEDEIROS Ot Z95.5 PRESENCE OF CORONARY ANGIOPLASTY IMPLANT 06/28/2017 ZAYDA NAIR DO Ot E78.00 PURE HYPERCHOLESTEROLEMIA, UNSPECIFIED 06/28/2017 JOANIE GIRMA MEDEIROSA Misty Ot I10 ESSENTIAL (PRIMARY) HYPERTENSION 06/28/2017 JOANIE ZAYDA MEDEIROS Ot 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 06/28/2017 JOANIE ZAYDA MEDEIROS Ot 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 06/28/2017 JOANIE ZAYDA MEDEIROS Ot K59.00 CONSTIPATION, UNSPECIFIED 06/28/2017 JOANIE ZAYDA MEDEIROS Ot Z79.82 RETURN TO SERVICE INSPECTOR (CURRENT) USE OF ASPIRIN 06/28/2017 JOANIE ZAYDA MEDEIROS Ot Z85.46 PERSONAL HISTORY OF MALIGNANT NEOPLASM O 06/28/2017 JOANIE ZAYDA MEDEIROS Ot Z86.73 PRSNL HX OF TIA (TIA), AND CEREB INFRC W 06/28/2017 JOANIE ZAYDA MEDEIROS Ot Z87.19 PERSONAL HISTORY OF OTHER DISEASES OF TH 06/28/2017 JOANIE ZAYDA MEDEIROS Ot Z88.6 ALLERGY STATUS TO ANALGESIC AGENT STATUS 06/28/2017 JOANIE ZYADA MEDEIROS Ot Z88.8 ALLERGY STATUS TO OTH DRUG/MEDS/BIOL SUB 06/28/2017 JOANIE ZAYDA MEDEIROS Ot Z90.89 ACQUIRED ABSENCE OF OTHER ORGANS 06/28/2017 JOANIE ZAYDA MEDEIROS Ot Z95.5 PRESENCE OF CORONARY ANGIOPLASTY IMPLANT 07/03/2017 NATALYA MORAN GERMINATION WORKER Ot K59.00 CONSTIPATION, UNSPECIFIED 07/12/2017 NATALYA MORAN GERMINATION WORKER Ot R10.9 UNSPECIFIED ABDOMINAL PAIN 07/16/2017 COSENS DO, KAREEM L Ot 786. 2 COUGH 07/16/2017 ANJALI GRIMES FACC, WILNER FACP CCDS Ot 414.00 CORON ATHEROSCLER NOS TYPE VESSEL, NATIV 07/16/2017 ANJALI GRIMES FACC, ALI FACP CCDS Ot 427.89 CARDIAC DYSRHYTHMIAS NEC 07/16/2017 ANJALI GRIMES FACC, ALI FACP CCDS Ot 434.91 CEREBRAL ART OCCLUSION NOS W CEREBRAL IN 07/16/2017 ANJALI GRIMES FACC, ALI FACP CCDS Ot 440.9 ATHEROSCLEROSIS NOS 07/16/2017 EJ RAMA M FIRE FIGHTING EQUIPMENT SPECIALIST Ot 786.2 COUGH 07/16/2017 RAMA PAGAN FIRE FIGHTING EQUIPMENT SPECIALIST Ot 789.00 ABDOMINAL PAIN, UNSPECIFIED SITE 07/16/2017 HUGO GRIMES, OLIVER Sutton Ot V72.84 EXAM PRE-OPERATIVE NOS 07/16/2017 HARPAL COBURN MD Ot 600.0 0 HYPERTROPHY (BENIGN) OF PROSTATE W/O URI 07/16/2017 HARPAL COBURN MD Ot V72.6 3 PRE-PROCEDURAL LABORATORY EXAMINATION 07/16/2017 HARPAL COBURN MD Ot V74.8 SCREEN-BACTERIAL DIS NEC 07/16/2017 GEORGIE GRIMES, DAYDAY Valdez Ot E86.0 DEHYDRATION 07/16/2017 GALE MAY FIRE FIGHTING EQUIPMENT SPECIALIST Ot E78.4 OTHER HYPERLIPIDEMIA 07/16/2017 GALE MAY FIRE FIGHTING EQUIPMENT SPECIALIST Ot 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 07/16/2017 NATALYA MORAN GERMINATION WORKER Ot R0 5 COUGH 07/16/2017 GEORGIE GRIMES, DAYDAY Valdez Ot R09.82 POSTNASAL DRIP 07/16/2017 DAYDAY JACQUES MD Ot R93.8 ABNORMAL FINDINGS ON DIAGNOSTIC IMAGING 07/16/2017 ANJALI GRIMES [facility], ALI FACP CCDS Ot E78.4 OTHER HYPERLIPIDEMIA 07/16/2017 ANJALI GRIMES [facility], ALI FACP CCDS Ot 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 07/16/2017 ANJALI GRIMES [facility], ALI FACP CCDS Ot 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 07/16/2017 ANJALI GRIMES FAC, ALI FACP CCDS Ot R00.1 BRADYCARDIA, UNSPECIFIED 07/16/2017 ANJALI LIRA, ALI FACP CCDS Ot Z86.79 PERSONAL HISTORY OF OTHER DISEASES OF TH 07/16/2017 IRISH GRIMES, HARPAL Valdez Ot C61 MALIGNANT NEOPLASM OF PROSTATE 07/16/2017 NATALYA MORAN GERMINATION WORKER Ot K59.00 CONSTIPATION, UNSPECIFIED 07/16/2017 NATALYA MORAN GERMINATION WORKER Ot R10.9 UNSPECIFIED ABDOMINAL PAIN 07/19/2017 NATALYA MORAN GERMINATION WORKER Ot R10.9 UNSPECIFIED ABDOMINAL PAIN 07/29/2017 NATALYA MORAN GERMINATION WORKER Ot K59.00 CONSTIPATION, UNSPECIFIED 08/01/2017 DEAN NATALYA Herman GERMINATION WORKER Ot K59.00 CONSTIPATION, UNSPECIFIED 08/02/2017 NATALYA MORAN GERMINATION WORKER Ot R10.9 UNSPECIFIED ABDOMINAL PAIN 08/09/2017 NATALYA MORAN GERMINATION WORKER Ot R10.9 UNSPECIFIED ABDOMINAL PAIN 08/09/2017 NATALYA MORAN GERMINATION WORKER Ot R10.9 UNSPECIFIED ABDOMINAL PAIN 08/11/2017 NATALYA MORAN GERMINATION WORKER Ot R10.9 UNSPECIFIED ABDOMINAL PAIN 08/12/2017 HUGO GRIMES, OLIVER Sutton Ot 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 2 COUGH 08/17/2017 ANJALI GRIMES FAC, ALI FACP CCDS Ot 414.00 CORON ATHEROSCLER NOS TYPE VESSEL, NATIV 08/17/2017 ANJALI GRIMES FACC, ALI FACP CCDS Ot 427.89 CARDIAC DYSRHYTHMIAS NEC 08/17/2017 ANJALI GRIMES FACC, ALI FACP CCDS Ot 434.91 CEREBRAL ART OCCLUSION NOS W CEREBRAL IN 08/17/2017 ANJALI GRIMES FACC, ALI FACP CCDS Ot 440.9 ATHEROSCLEROSIS NOS 08/17/2017 RAMA PAGAN FIRE FIGHTING EQUIPMENT SPECIALIST Ot 786.2 COUGH 08/17/2017 RAMA PAGAN FIRE FIGHTING EQUIPMENT SPECIALIST Ot 789.00 ABDOMINAL PAIN, UNSPECIFIED SITE 08/17/2017 HUGO GRIMES, OLIVER Sutton Ot V72.84 EXAM PRE-OPERATIVE NOS 08/17/2017 HARPAL COBURN MD Ot 600.0 0 HYPERTROPHY (BENIGN) OF PROSTATE W/O URI 08/17/2017 HARPAL COBURN MD Ot V72.6 3 PRE-PROCEDURAL LABORATORY EXAMINATION 08/17/2017 HARPAL COBURN MD Ot V74.8 SCREEN-BACTERIAL DIS NEC 08/17/2017 DAYDAY JACQUES MD Ot E86.0 DEHYDRATION 08/17/2017 GALE MAY FIRE FIGHTING EQUIPMENT SPECIALIST Ot E78.4 OTHER HYPERLIPIDEMIA 08/17/2017 GALE MAY FIRE FIGHTING EQUIPMENT SPECIALIST Ot 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 08/17/2017 NATALYA MORAN GERMINATION WORKER Ot R0 5 COUGH 08/17/2017 GEORGIE GRIMES, DAYDAY Valdez Ot R09.82 POSTNASAL DRIP 08/17/2017 DAYDAY JACQUES MD Ot R93.8 ABNORMAL FINDINGS ON DIAGNOSTIC IMAGING 08/17/2017 ANJALI GRIMES [facility], ALI FACP CCDS Ot E78.4 OTHER HYPERLIPIDEMIA 08/17/2017 ANJALI GRIMES FAC, ALI FACP CCDS Ot 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 08/17/2017 ANJALI GRIMES [facility], ALI FACP CCDS Ot 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 08/17/2017 ANJALI GRIMES [facility], ALI FACP CCDS Ot R00.1 BRADYCARDIA, UNSPECIFIED 08/17/2017 ANJALI GRIMES [facility], ALI FACP CCDS Ot Z86.79 PERSONAL HISTORY OF OTHER DISEASES OF TH 08/17/2017 RIISH GRIMES, HARPAL Valdez Ot C61 MALIGNANT NEOPLASM OF PROSTATE 08/17/2017 NATALYA MORAN GERMINATION WORKER Ot K59.00 CONSTIPATION, UNSPECIFIED 08/17/2017 NATALYA MORAN GERMINATION WORKER Ot R10.9 UNSPECIFIED ABDOMINAL PAIN 08/17/2017 NATALYA MORAN GERMINATION WORKER Ot R10.9 UNSPECIFIED ABDOMINAL PAIN 08/17/2017 DAYDAY JACQUES MD Ot M54.5 LOW BACK PAIN 08/17/2017 DAYDAY JACQUES MD Ot M54.6 PAIN IN THORACIC SPINE 08/17/2017 DAYDAY JACQUES MD Ot M79.602 PAIN IN LEFT ARM 08/17/2017 HUGO GRIMES, OLIVER Sutton Ot 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 08/22/2017 OLIVER ARIAS MD Ot R19.5 OTHER FECAL ABNORMALITIES 08/22/2017 OLIVER ARIAS MD Ot R63.4 ABNORMAL WEIGHT LOSS 08/22/2017 OLIVER ARIAS MD Ot Z01.818 ENCOUNTER FOR OTHER PREPROCEDURAL EXAMIN 08/23/2017 OLIVER ARIAS MD Ot R19.5 OTHER FECAL ABNORMALITIES 08/23/2017 OLIVER ARIAS MD Ot R63.4 ABNORMAL WEIGHT LOSS 08/23/2017 OLIVER ARIAS MD Ot Z01.818 ENCOUNTER FOR OTHER PREPROCEDURAL EXAMIN 08/29/2017 OLIVER ARIAS MD Ot E03.9 HYPOTHYROIDISM, UNSPECIFIED 08/29/2017 OLIVER ARIAS MD Ot E78.5 HYPERLIPIDEMIA, UNSPECIFIED 08/29/2017 OLIVER ARIAS MD Ot 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 08/29/2017 OLIVER ARIAS MD Ot K44.9 DIAPHRAGMATIC HERNIA WITHOUT OBSTRUCTION 08/29/2017 OLIVER ARIAS MD Ot K57.30 DVRTCLOS OF LG INT W/O PERFORATION OR AB 08/29/2017 OLIVER ARIAS MD Ot 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 08/29/2017 OLIVER ARIAS MD Ot R19.4 CHANGE IN BOWEL HABIT 08/29/2017 OLIVER ARIAS MD Ot R63.5 ABNORMAL WEIGHT GAIN 08/29/2017 OLIVER ARIAS MD Ot Z79.82 [facility] (CURRENT) USE OF ASPIRIN 08/30/2017 OLIVER ARIAS MD Ot E03.9 HYPOTHYROIDISM, UNSPECIFIED 08/30/2017 OLIVER ARIAS MD Ot E78.5 HYPERLIPIDEMIA, UNSPECIFIED 08/30/2017 OLIVER ARIAS MD Ot 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 08/30/2017 OLIVER ARIAS MD Ot K44.9 DIAPHRAGMATIC HERNIA WITHOUT OBSTRUCTION 08/30/2017 OLIVER ARIAS MD Ot K57.30 DVRTCLOS OF LG INT W/O PERFORATION OR AB 08/30/2017 OLIVER ARIAS MD Ot 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 08/30/2017 OLIVER ARIAS MD Ot R19.4 CHANGE IN BOWEL HABIT 08/30/2017 OLIVER ARIAS MD Ot R63.5 ABNORMAL WEIGHT GAIN 08/30/2017 OLIVER ARIAS MD Ot Z79.82 [facility] (CURRENT) USE OF ASPIRIN 09/01/2017 OLIVER ARIAS MD Ot 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 09/07/2017 OLIVER ARIAS MD Ot 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 09/09/2017 OLIVER ARIAS MD Ot E03.9 HYPOTHYROIDISM, UNSPECIFIED 09/09/2017 OLIVER ARIAS MD Ot E78.5 HYPERLIPIDEMIA, UNSPECIFIED 09/09/2017 OLIVER ARIAS MD Ot 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 09/09/2017 OLIVER ARIAS MD, Ot K44.9 DIAPHRAGMATIC HERNIA WITHOUT OBSTRUCTION 09/09/2017 OLIVER ARIAS MD, Ot K57.30 DVRTCLOS OF LG INT W/O PERFORATION OR AB 09/09/2017 OLIVER ARIAS MD, Ot 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 09/09/2017 OLIVER ARIAS MD, Ot R19.4 CHANGE IN BOWEL HABIT 09/09/2017 OLIVER ARIAS MD, Ot R63.5 ABNORMAL WEIGHT GAIN 09/09/2017 OLIVER ARIAS MD, Ot Z79.82 RETURN TO SERVICE INSPECTOR (CURRENT) USE OF ASPIRIN 09/10/2017 AQUILINO DUDLEY MD, Ot E11.9 TYPE 2 DIABETES MELLITUS WITHOUT COMPLIC 09/10/2017 AQUILINO DUDLEY MD, Ot E78.00 PURE HYPERCHOLESTEROLEMIA, UNSPECIFIED 09/10/2017 AQUILINO DUDLEY MD, Ot E86.0 DEHYDRATION 09/10/2017 AQUILINO DUDLEY MD Ot I10 ESSENTIAL (PRIMARY) HYPERTENSION 09/10/2017 AQUILINO DUDLEY MD, Ot 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 09/10/2017 AQUILINO DUDLEY MD, Ot 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 09/10/2017 AQUILINO DUDLEY MD Ot R53.1 WEAKNESS 09/10/2017 AQUILINO DUDLEY MD Ot Z79.82 [facility] (CURRENT) USE OF ASPIRIN 09/10/2017 AQUILINO DUDLEY MD Ot Z85.46 PERSONAL HISTORY OF MALIGNANT NEOPLASM O 09/10/2017 AQUILINO DUDLEY MD Ot Z86.73 PRSNL HX OF TIA (TIA), AND CEREB INFRC W 09/10/2017 AQUILINO DUDLEY MD, Ot Z87.19 PERSONAL HISTORY OF OTHER DISEASES OF TH 09/10/2017 AQUILINO DUDLEY MD, Ot Z88.5 ALLERGY STATUS TO NARCOTIC AGENT STATUS 09/10/2017 AQUILINO DUDLEY MD, Ot Z88.6 ALLERGY STATUS TO ANALGESIC AGENT STATUS 09/10/2017 AQUILINO DUDLEY MD Ot Z90.79 ACQUIRED ABSENCE OF OTHER GENITAL ORGAN( 09/10/2017 AQUILINO DDULEY MD Ot Z90.89 ACQUIRED ABSENCE OF OTHER ORGANS 09/10/2017 AQUILINO DUDLEY MD, Ot Z95.5 PRESENCE OF CORONARY ANGIOPLASTY IMPLANT 09/12/2017 AQUILINO DUDLEY MD Ot E11.9 TYPE 2 DIABETES MELLITUS WITHOUT COMPLIC 09/12/2017 AQUILINO DUDLEY MD, Ot E78.00 PURE HYPERCHOLESTEROLEMIA, UNSPECIFIED 09/12/2017 AQUILINO DUDLEY MD Ot E86.0 DEHYDRATION 09/12/2017 AQUILINO DUDLEY MD Ot I10 ESSENTIAL (PRIMARY) HYPERTENSION 09/12/2017 AQUILINO DUDLEY MD, Ot 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 09/12/2017 AQUILINO DUDLEY MD, Ot 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 09/12/2017 AQUILINO DUDLEY MD, Ot R53.1 WEAKNESS 09/12/2017 AQUILINO DUDLEY MD, Ot Z79.82 RETURN TO SERVICE INSPECTOR (CURRENT) USE OF ASPIRIN 09/12/2017 AQUILINO DUDLEY [...] DEMENTIA 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L 09/24/2017 SHU CHEN Ot I 10 ESSENTIAL (PRIMARY) HYPERTENSION 09/24/2017 SHU CHEN Ot 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 09/24/2017 SHU CHEN Ot 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 09/24/2017 SHU CHEN Ot K31.84 GASTROPARESIS 09/24/2017 SHU CHEN Ot R10.9 UNSPECIFIED ABDOMINAL PAIN 09/24/2017 SHU CHEN Ot Z79.02 [facility] (CURRENT) USE OF ANTITHROMBOTI 09/24/2017 SHU CHEN Ot Z79.82 RETURN TO SERVICE INSPECTOR (CURRENT) USE OF ASPIRIN 09/24/2017 SHU CHEN [...] DEMENTIA 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L 09/26/2017 SHU CHEN Ot I 10 ESSENTIAL (PRIMARY) HYPERTENSION 09/26/2017 SHU CHEN Ot 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 09/26/2017 SHU CHEN Ot 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 09/26/2017 SHU CHEN Ot K31.84 GASTROPARESIS 09/26/2017 SHU CHEN Ot R10.9 UNSPECIFIED ABDOMINAL PAIN 09/26/2017 SHU CHEN Ot Z79.02 [facility] (CURRENT) USE OF ANTITHROMBOTI 09/26/2017 SHU CHEN Ot Z79.82 [facility] (CURRENT) USE OF ASPIRIN 09/26/2017 SHU CHEN [...] M54.5 LOW BACK PAIN 10/05/2017 DAYDAY JACQUES MD Ot M54.6 PAIN IN THORACIC SPINE 10/05/2017 DAYDAY JACQUES MD Ot M79.602 PAIN IN LEFT ARM 10/06/2017 DAYDAY JACQUES MD Ot M54.5 LOW BACK PAIN 10/06/2017 DAYDAY JACQUES MD Ot M54.6 PAIN IN THORACIC SPINE 10/06/2017 DAYDAY JACQUES MD Ot M79.602 PAIN IN LEFT ARM 10/22/2017 LUCAS CALLES APRN Ot E78.00 PURE HYPERCHOLESTEROLEMIA, UNSPECIFIED 10/22/2017 LUCAS CALLES APRN Ot F03.90 UNSPECIFIED DEMENTIA 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L 10/22/2017 LUCAS CALLES GERMINATION WORKER Ot I10 ESSENTIAL (PRIMARY) HYPERTENSION 10/22/2017 LUCAS CALLES APRN Ot 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 10/22/2017 LUCAS CALLES APRN Ot K21 .9 GASTRO-ESOPHAGEAL REFLUX DISEASE WITHOUT 10/22/2017 LUCAS CALLES APRN Ot K29.70 GASTRITIS, UNSPECIFIED, WITHOUT BLEEDING 10/22/2017 LUCAS CALLES APRN Ot N40 .0 BENIGN PROSTATIC HYPERPLASIA WITHOUT LOW 10/22/2017 LUCAS [...] OTHER ORGANS 10/22/2017 LUCAS CALLES APRN Ot Z95 .5 PRESENCE OF CORONARY ANGIOPLASTY IMPLANT 10/24/2017 LUCAS CALLES APRN Ot E78.00 PURE HYPERCHOLESTEROLEMIA, UNSPECIFIED 10/24/2017 LUCAS CALLES APRN Ot F03.90 UNSPECIFIED DEMENTIA 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L 10/24/2017 LUCAS CALLES APRN Ot I10 ESSENTIAL (PRIMARY) HYPERTENSION 10/24/2017 LUCAS CALLES APRN Ot 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 10/24/2017 LUCAS CALLES APRN Ot K21 .9 GASTRO-ESOPHAGEAL REFLUX DISEASE WITHOUT 10/24/2017 LUCAS CALLES APRN Ot K29.70 GASTRITIS, UNSPECIFIED, WITHOUT BLEEDING 10/24/2017 LUCAS CALLES APRN Ot N40 .0 BENIGN PROSTATIC HYPERPLASIA WITHOUT LOW 10/24/2017 LUCAS [...] OTHER ORGANS 10/24/2017 LUCAS CALLES APRN Ot Z95 .5 PRESENCE OF CORONARY ANGIOPLASTY IMPLANT 10/28/2017 LUCAS CALLES APRN Ot E78.00 PURE HYPERCHOLESTEROLEMIA, UNSPECIFIED 10/28/2017 LUCAS CALLES APRN Ot F03.90 UNSPECIFIED DEMENTIA 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L 10/28/2017 LUCAS CALLES APRN Ot I10 ESSENTIAL (PRIMARY) HYPERTENSION 10/28/2017 LUCAS CALLES APRN Ot 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 10/28/2017 LUCAS CALLES APRN Ot K21 .9 GASTRO-ESOPHAGEAL REFLUX DISEASE WITHOUT 10/28/2017 LUCAS CALLES APRN Ot K29.70 GASTRITIS, UNSPECIFIED, WITHOUT BLEEDING 10/28/2017 LUCAS CALLES APRN Ot N40 .0 BENIGN PROSTATIC HYPERPLASIA WITHOUT LOW 10/28/2017 LUCAS [...] OTHER ORGANS 10/28/2017 LUCAS CALLES APRN Ot Z95 .5 PRESENCE OF CORONARY ANGIOPLASTY IMPLANT 12/03/2017 LUCAS CALLES APRN Ot E78.00 PURE HYPERCHOLESTEROLEMIA, UNSPECIFIED 12/03/2017 LUCAS CALLES APRN Ot F03.90 UNSPECIFIED DEMENTIA 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L 12/03/2017 LUCAS CALLES APRN Ot I10 ESSENTIAL (PRIMARY) HYPERTENSION 12/03/2017 LUCAS CALLES APRN Ot 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 12/03/2017 LUCAS CALLES APRN Ot K21 .9 GASTRO-ESOPHAGEAL REFLUX DISEASE WITHOUT 12/03/2017 LUCAS CALLES APRN Ot R10.13 EPIGASTRIC PAIN 12/03/2017 LUCAS CALLES APRN Ot Z79.02 [facility] (CURRENT) USE OF ANTITHROMBOTI 12/03/2017 LUCAS CALLES APRN Ot Z79.82 [facility] (CURRENT) USE OF ASPIRIN 12/03/2017 LUCAS CALLES APRN Ot Z79.84 RETURN TO SERVICE INSPECTOR (CURRENT) USE OF ORAL HYPOGLYC 12/03/2017 LUCAS CALLES APRN Ot Z85.46 PERSONAL HISTORY OF MALIGNANT NEOPLASM O 12/03/2017 LUCAS CALLES APRN, Ot Z86.73 PRSNL HX OF TIA (TIA), AND CEREB INFRC W 12/03/2017 LUCAS CALLES APRN Ot Z87.19 PERSONAL HISTORY OF OTHER DISEASES OF TH 12/03/2017 LUCAS CALLES APRN Ot Z88 .4 ALLERGY STATUS TO ANESTHETIC AGENT STATU 12/03/2017 LUCAS CALLES APRN Ot Z88 .8 ALLERGY STATUS TO OTH DRUG/MEDS/BIOL SUB 12/03/2017 LUCAS CALLES APRN Ot Z90.89 ACQUIRED ABSENCE OF OTHER ORGANS 12/03/2017 LUCAS CALLES APRN Ot Z95 .5 PRESENCE OF CORONARY ANGIOPLASTY IMPLANT 12/05/2017 LUCAS CALLES APRN Ot E78.00 PURE HYPERCHOLESTEROLEMIA, UNSPECIFIED 12/05/2017 LUCAS CALLES APRN Ot F03.90 UNSPECIFIED DEMENTIA 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L 12/05/2017 LUCAS CALLES APRN Ot I10 ESSENTIAL (PRIMARY) HYPERTENSION 12/05/2017 LUCAS CALLES APRN Ot 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 12/05/2017 LUCAS CALLES APRN Ot K21 .9 GASTRO-ESOPHAGEAL REFLUX DISEASE WITHOUT 12/05/2017 LUCAS CALLES APRN Ot R10.13 EPIGASTRIC PAIN 12/05/2017 LUCAS CALLES APRN Ot Z79.02 [facility] (CURRENT) USE OF ANTITHROMBOTI 12/05/2017 LUCAS CALLES APRN Ot Z79.82 RETURN TO SERVICE INSPECTOR (CURRENT) USE OF ASPIRIN 12/05/2017 LUCAS CALLES APRN Ot Z79.84 RETURN TO SERVICE INSPECTOR (CURRENT) USE OF ORAL HYPOGLYC 12/05/2017 LUCAS CALLES APRN Ot Z85.46 PERSONAL HISTORY OF MALIGNANT NEOPLASM O 12/05/2017 LUCAS CALLES APRN Ot Z86.73 PRSNL HX OF TIA (TIA), AND CEREB INFRC W 12/05/2017 LUCAS CALLES APRN Ot Z87.19 PERSONAL HISTORY OF OTHER DISEASES OF TH 12/05/2017 LUCAS CALLES GERMINATION WORKER Ot Z88 .4 ALLERGY STATUS TO ANESTHETIC AGENT STATU 12/05/2017 LUCAS CALLES GERMINATION WORKER Ot Z88 .8 ALLERGY STATUS TO OT DRUG/MEDS/BIOL SUB 12/05/2017 LUCAS CALLES GERMINATION WORKER Ot Z90.89 ACQUIRED ABSENCE OF OTHER ORGANS 12/05/2017 LUCAS CALLES GERMINATION WORKER Ot Z95 .5 PRESENCE OF CORONARY ANGIOPLASTY IMPLANT 12/13/2017 Ot E78.00 PUR E HYPERCHOLESTEROLEMIA, UNSPECIFIED 12/13/2017 Ot E87.1 HYPO -OSMOLALITY AND HYPONATREMIA 12/13/2017 Ot F03.90 UNS PECIFIED DEMENTIA 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L 12/13/2017 Ot G89.29 OTH ER CHRONIC PAIN 12/13/2017 Ot I10 ESSENT IAL (PRIMARY) HYPERTENSION 12/13/2017 Ot 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 12/13/2017 Ot K21.9 HARDEEP RO-ESOPHAGEAL REFLUX DISEASE WITHOUT 12/13/2017 Ot R10.9 UNSP ECIFIED ABDOMINAL PAIN 12/13/2017 Ot Z79.02 [facility] (CURRENT) USE OF ANTITHROMBOTI 12/13/2017 Ot Z79.82 [facility] (CURRENT) USE OF ASPIRIN 12/13/2017 Ot Z79.84 [facility] (CURRENT) USE OF ORAL HYPOGLYC 12/13/2017 Ot Z85.46 PER ELLYN HISTORY OF MALIGNANT NEOPLASM O 12/13/2017 Ot Z86.73 PRS NL HX OF TIA (TIA), AND CEREB INFRC W 12/13/2017 Ot Z87.19 PER ELLYN HISTORY OF OTHER DISEASES OF TH 12/13/2017 Ot Z88.8 NAYE RGY STATUS TO OT DRUG/MEDS/BIOL SUB 12/13/2017 Ot Z90.89 ACQ UIRED ABSENCE OF OTHER ORGANS 12/13/2017 Ot Z95.5 PRES ENCE OF CORONARY ANGIOPLASTY IMPLANT 12/19/2017 Ot E78.00 PUR E HYPERCHOLESTEROLEMIA, UNSPECIFIED 12/19/2017 Ot F03.90 UNS PECIFIED DEMENTIA 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L 12/19/2017 Ot I10 ESSENT IAL (PRIMARY) HYPERTENSION 12/19/2017 Ot 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 12/19/2017 Ot K21.9 HARDEEP RO-ESOPHAGEAL REFLUX DISEASE WITHOUT 12/19/2017 Ot K59.00 CON STIPATION, UNSPECIFIED 12/19/2017 Ot R10.31 RIG HT LOWER QUADRANT PAIN 12/19/2017 Ot Z79.02 [facility] (CURRENT) USE OF ANTITHROMBOTI 12/19/2017 Ot Z79.82 [facility] (CURRENT) USE OF ASPIRIN 12/19/2017 Ot Z79.84 [facility] (CURRENT) USE OF ORAL HYPOGLYC 12/19/2017 Ot Z85.46 PER ELLYN HISTORY OF MALIGNANT NEOPLASM O 12/19/2017 Ot Z86.73 PRS NL HX OF TIA (TIA), AND CEREB INFRC W 12/19/2017 Ot Z87.19 PER ELLYN HISTORY OF OTHER DISEASES OF TH 12/19/2017 Ot Z88.7 NAYE RGY STATUS TO SERUM AND VACCINE STAT 12/19/2017 Ot Z88.8 NAYE RGY STATUS TO OTH DRUG/MEDS/BIOL SUB 12/19/2017 Ot Z90.89 ACQ UIRED ABSENCE OF OTHER ORGANS 12/19/2017 Ot Z95.5 PRES ENCE OF CORONARY ANGIOPLASTY IMPLANT 12/19/2017 Ot Z98.890 OT HER SPECIFIED POSTPROCEDURAL STATES 12/26/2017 DERICK GRIMES, YANETH Avila Ot E78.00 PURE HYPERCHOLESTEROLEMIA, UNSPECIFIED 12/26/2017 YANETH SEPULVEDA MD Ot F03.90 UNSPECIFIED DEMENTIA 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L 12/26/2017 YANETH SEPULVEDA MD Ot I10 ESSENTIAL (PRIMARY) HYPERTENSION 12/26/2017 YANETH SEPULVEDA MD Ot 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 12/26/2017 YANETH SEPULVEDA MD Ot 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 12/26/2017 YANETH SEPULVEDA MD Ot R05 COUGH 12/26/2017 YANETH SEPULVEDA MD Ot R06.02 SHORTNESS OF BREATH 12/26/2017 YANETH SEPULVEDA MD Ot R09.82 POSTNASAL DRIP 12/26/2017 YANETH SEPULVEDA MD Ot Z79.02 RETURN TO SERVICE INSPECTOR (CURRENT) USE OF ANTITHROMBOTI 12/26/2017 YANETH SEPULVEDA MD Ot Z79.82 RETURN TO SERVICE INSPECTOR (CURRENT) USE OF ASPIRIN 12/26/2017 YANETH SEPULVEDA MD Ot Z79.84 RETURN TO SERVICE INSPECTOR (CURRENT) USE OF ORAL HYPOGLYC 12/26/2017 YANETH SEPULVEDA MD Ot Z85.46 PERSONAL HISTORY OF MALIGNANT NEOPLASM O 12/26/2017 YANETH SEPULVEDA MD Ot Z86.73 PRSNL HX OF TIA (TIA), AND CEREB INFRC W 12/26/2017 YANETH SEPULVEDA MD Ot Z87.19 PERSONAL HISTORY OF OTHER DISEASES OF TH 12/26/2017 YANETH SEPULVEDA MD Ot Z88.8 ALLERGY STATUS TO OT DRUG/MEDS/BIOL SUB 12/26/2017 YANETH SEPULVEDA MD Ot Z90.79 ACQUIRED ABSENCE OF OTHER GENITAL ORGAN( 12/26/2017 YANETH SEPULVEDA MD Ot Z90.89 ACQUIRED ABSENCE OF OTHER ORGANS 12/26/2017 YANETH SEPULVEDA MD Ot Z95.5 PRESENCE OF CORONARY ANGIOPLASTY IMPLANT 12/28/2017 Ot E78.00 PUR E HYPERCHOLESTEROLEMIA, UNSPECIFIED 12/28/2017 Ot E86.0 DEHY DRATION 12/28/2017 Ot F03.90 UNS PECIFIED DEMENTIA 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L 12/28/2017 Ot I10 ESSENT IAL (PRIMARY) HYPERTENSION 12/28/2017 Ot 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 12/28/2017 Ot K21.9 HARDEEP RO-ESOPHAGEAL REFLUX DISEASE WITHOUT 12/28/2017 Ot Z79.02 [facility] (CURRENT) USE OF ANTITHROMBOTI 12/28/2017 Ot Z79.51 [facility] (CURRENT) USE OF INHALED STERO 12/28/2017 Ot Z79.82 [facility] (CURRENT) USE OF ASPIRIN 12/28/2017 Ot Z79.84 [facility] (CURRENT) USE OF ORAL HYPOGLYC 12/28/2017 Ot Z85.46 PER ELLYN HISTORY OF MALIGNANT NEOPLASM O 12/28/2017 Ot Z86.73 PRS NL HX OF TIA (TIA), AND CEREB INFRC W 12/28/2017 Ot Z87.19 PER ELLYN HISTORY OF OTHER DISEASES OF TH 12/28/2017 Ot Z87.448 PE RSONAL HISTORY OF OTHER DISEASES OF UR 12/28/2017 Ot Z88.8 NAYE RGY STATUS TO OTH DRUG/MEDS/BIOL SUB 12/28/2017 Ot Z90.89 ACQ UIRED ABSENCE OF OTHER ORGANS 12/28/2017 Ot Z95.5 PRES ENCE OF CORONARY ANGIOPLASTY IMPLANT 12/28/2017 Ot Z98.890 OT HER SPECIFIED POSTPROCEDURAL STATES 12/30/2017 Ot E78.00 PUR E HYPERCHOLESTEROLEMIA, UNSPECIFIED 12/30/2017 Ot E86.0 DEHY DRATION 12/30/2017 Ot F03.90 UNS PECIFIED DEMENTIA 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L 12/30/2017 Ot I10 ESSENT IAL (PRIMARY) HYPERTENSION 12/30/2017 Ot 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 12/30/2017 Ot K21.9 HARDEEP RO-ESOPHAGEAL REFLUX DISEASE WITHOUT 12/30/2017 Ot Z79.02 [facility] (CURRENT) USE OF ANTITHROMBOTI 12/30/2017 Ot Z79.51 [facility] (CURRENT) USE OF INHALED STERO 12/30/2017 Ot Z79.82 [facility] (CURRENT) USE OF ASPIRIN 12/30/2017 Ot Z79.84 [facility] (CURRENT) USE OF ORAL HYPOGLYC 12/30/2017 Ot Z85.46 PER ELLYN HISTORY OF MALIGNANT NEOPLASM O 12/30/2017 Ot Z86.73 PRS NL HX OF TIA (TIA), AND CEREB INFRC W 12/30/2017 Ot Z87.19 PER ELLYN HISTORY OF OTHER DISEASES OF TH 12/30/2017 Ot Z87.448 PE RSONAL HISTORY OF OTHER DISEASES OF UR 12/30/2017 Ot Z88.8 NAYE RGY STATUS TO [facility] DRUG/MEDS/BIOL SUB 12/30/2017 Ot Z90.89 ACQ UIRED ABSENCE OF OTHER ORGANS 12/30/2017 Ot Z95.5 PRES ENCE OF CORONARY ANGIOPLASTY IMPLANT 12/30/2017 Ot Z98.890 OT HER SPECIFIED POSTPROCEDURAL STATES 01/06/2018 YANETH SEPULVEDA MD Ot E11.9 TYPE 2 DIABETES MELLITUS WITHOUT COMPLIC 01/06/2018 DERICK GRIMES, YANETH Avila Ot E78.00 PURE HYPERCHOLESTEROLEMIA, UNSPECIFIED 01/06/2018 YANETH SEPULVEDA MD Ot F03.90 UNSPECIFIED DEMENTIA 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L 01/06/2018 YANETH SEPULVEDA MD Ot F41.9 ANXIETY DISORDER, UNSPECIFIED 01/06/2018 YANETH SEPULVEDA MD, Ot G25.81 RESTLESS LEGS SYNDROME 01/06/2018 YANETH SEPULVEDA MD, Ot I10 ESSENTIAL (PRIMARY) HYPERTENSION 01/06/2018 YANETH SEPULVEDA MD, Ot 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 01/06/2018 YANETH SEPULVEDA MD, Ot R05 COUGH 01/06/2018 YANETH SEPULVEDA MD, Ot R06.02 SHORTNESS OF BREATH 01/06/2018 YANETH SEPULVEDA MD, Ot Z79.02 RETURN TO SERVICE INSPECTOR (CURRENT) USE OF ANTITHROMBOTI 01/06/2018 YANETH SEPULVEDA MD, Ot Z79.51 [facility] (CURRENT) USE OF INHALED STERO 01/06/2018 YANETH SEPULVEDA MD, Ot Z79.82 RETURN TO SERVICE INSPECTOR (CURRENT) USE OF ASPIRIN 01/06/2018 YANETH SEPULVEDA MD, Ot Z79.84 [facility] (CURRENT) USE OF ORAL HYPOGLYC 01/06/2018 YANETH SEPULVEDA MD, Ot Z85.46 PERSONAL HISTORY OF MALIGNANT NEOPLASM O 01/06/2018 YANETH SEPULVEDA MD, Ot Z86.73 PRSNL HX OF TIA (TIA), AND CEREB INFRC W 01/06/2018 YANETH SEPULVEDA MD, Ot Z87.19 PERSONAL HISTORY OF OTHER DISEASES OF TH 01/06/2018 YANETH SEPULVEDA MD, Ot Z88.8 ALLERGY STATUS TO OT DRUG/MEDS/BIOL SUB 01/06/2018 YANETH SEPULVEDA MD, Ot Z90.89 ACQUIRED ABSENCE OF OTHER ORGANS 01/06/2018 YANETH SEPULVEDA MD, Ot Z95.5 PRESENCE OF CORONARY ANGIOPLASTY IMPLANT 01/06/2018 YANETH SEPULVEDA MD, Ot Z98.890 OTHER SPECIFIED POSTPROCEDURAL STATES 01/07/2018 LUCAS CALLES APRN Ot E11 .9 TYPE 2 DIABETES MELLITUS WITHOUT COMPLIC 01/07/2018 LUCAS CALLES APRN Ot E78.00 PURE HYPERCHOLESTEROLEMIA, UNSPECIFIED 01/07/2018 LUCAS CALLES APRN Ot F03.90 UNSPECIFIED DEMENTIA 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L 01/07/2018 LUCAS CALLES APRN Ot F41 .9 ANXIETY DISORDER, UNSPECIFIED 01/07/2018 LUCAS CALLES APRN Ot G25.81 RESTLESS LEGS SYNDROME 01/07/2018 LUCAS CALLES APRN Ot I10 ESSENTIAL (PRIMARY) HYPERTENSION 01/07/2018 LUCAS CALLES APRN Ot 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 01/07/2018 LUCAS CALLES APRN Ot K21 .9 GASTRO-ESOPHAGEAL REFLUX DISEASE WITHOUT 01/07/2018 LUCAS CALLES APRN Ot R05 COUGH 01/07/2018 LUCAS CALLES APRN Ot R06.02 SHORTNESS OF BREATH 01/07/2018 LUCAS CALLES APRN Ot R19 .4 CHANGE IN BOWEL HABIT 01/07/2018 LUCAS CALLES APRN Ot Z79.02 [facility] (CURRENT) USE OF ANTITHROMBOTI 01/07/2018 LUCAS CALLES APRN Ot Z79.51 RETURN TO SERVICE INSPECTOR (CURRENT) USE OF INHALED STERO 01/07/2018 LUCAS CALLES APRN Ot Z79.82 RETURN TO SERVICE INSPECTOR (CURRENT) USE OF ASPIRIN 01/07/2018 LUCAS CALLES APRN Ot Z79.84 RETURN TO SERVICE INSPECTOR (CURRENT) USE OF ORAL HYPOGLYC 01/07/2018 LUCAS CALLES APRN Ot Z85.46 PERSONAL HISTORY OF MALIGNANT NEOPLASM O 01/07/2018 LUCAS CALLES APRN Ot Z86.73 PRSNL HX OF TIA (TIA), AND CEREB INFRC W 01/07/2018 LUCAS CALLES APRN Ot Z87.19 PERSONAL HISTORY OF OTHER DISEASES OF TH 01/07/2018 LUCAS CALLES APRN Ot Z88 .4 ALLERGY STATUS TO ANESTHETIC AGENT STATU 01/07/2018 LUCAS CALLES APRN Ot Z88 .8 ALLERGY STATUS TO OTH DRUG/MEDS/BIOL SUB 01/07/2018 LUCAS CALLES APRN Ot Z90.89 ACQUIRED ABSENCE OF OTHER ORGANS 01/07/2018 LUCAS CALLES APRN Ot Z95 .5 PRESENCE OF CORONARY ANGIOPLASTY IMPLANT 01/07/2018 LUCAS CALLES APRN Ot Z98.890 OTHER SPECIFIED POSTPROCEDURAL STATES 01/10/2018 LUCAS CALLES APRN Ot E11 .9 TYPE 2 DIABETES MELLITUS WITHOUT COMPLIC 01/10/2018 LUCAS CALLES APRN Ot E78.00 PURE HYPERCHOLESTEROLEMIA, UNSPECIFIED 01/10/2018 LUCAS CALLES APRN Ot F03.90 UNSPECIFIED DEMENTIA 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L 01/10/2018 LUCAS CALLES APRN Ot F41 .9 ANXIETY DISORDER, UNSPECIFIED 01/10/2018 LUCAS CALLES APRN Ot G25.81 RESTLESS LEGS SYNDROME 01/10/2018 LUCAS CALLES APRN Ot I10 ESSENTIAL (PRIMARY) HYPERTENSION 01/10/2018 LUCAS CALLES APRN Ot 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 01/10/2018 LUCAS CALLES APRN Ot K21 .9 GASTRO-ESOPHAGEAL REFLUX DISEASE WITHOUT 01/10/2018 LUCAS CALLES APRN Ot R05 COUGH 01/10/2018 LUCAS CALLES APRN Ot R06.02 SHORTNESS OF BREATH 01/10/2018 LUCAS CALLES APRN Ot R19 .4 CHANGE IN BOWEL HABIT 01/10/2018 LUCAS CALLES APRN Ot Z79.02 RETURN TO SERVICE INSPECTOR (CURRENT) USE OF ANTITHROMBOTI 01/10/2018 LUCAS CALLES APRN Ot Z79.51 [facility] (CURRENT) USE OF INHALED STERO 01/10/2018 LUCAS CALLES APRN Ot Z79.82 [facility] (CURRENT) USE OF ASPIRIN 01/10/2018 LUCAS CALLES APRN Ot Z79.84 [facility] (CURRENT) USE OF ORAL HYPOGLYC 01/10/2018 LUCAS CALLES APRN Ot Z85.46 PERSONAL HISTORY OF MALIGNANT NEOPLASM O 01/10/2018 LUCAS CALLES APRN Ot Z86.73 PRSNL HX OF TIA (TIA), AND CEREB INFRC W 01/10/2018 LUCAS CALLES APRN Ot Z87.19 PERSONAL HISTORY OF OTHER DISEASES OF TH 01/10/2018 LUCAS CALLES APRN Ot Z88 .4 ALLERGY STATUS TO ANESTHETIC AGENT STATU 01/10/2018 LUCAS CALLES APRN Ot Z88 .8 ALLERGY STATUS TO OTH DRUG/MEDS/BIOL SUB 01/10/2018 LUCAS CALLES APRN Ot Z90.89 ACQUIRED ABSENCE OF OTHER ORGANS 01/10/2018 LUCAS CALLES APRN Ot Z95 .5 PRESENCE OF CORONARY ANGIOPLASTY IMPLANT 01/10/2018 LUCAS CALLES APRN Ot Z98.890 OTHER SPECIFIED POSTPROCEDURAL STATES 01/31/2018 HARMONY LAWRENCE MD Ot C61 MALIGNANT NEOPLASM OF PROSTATE 01/31/2018 HARMONY LAWRENCE MD Ot E03.9 HYPOTHYROIDISM, UNSPECIFIED 01/31/2018 HARMONY LAWRENCE MD Ot E78.5 HYPERLIPIDEMIA, UNSPECIFIED 01/31/2018 HARMONY LAWRENEC MD Ot 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 01/31/2018 HARMONY LAWRENCE MD Ot M19.91 PRIMARY OSTEOARTHRITIS, UNSPECIFIED SITE 01/31/2018 HARMONY LAWRENCE MD Ot Z79.899 OTHER RETURN TO SERVICE INSPECTOR (CURRENT) DRUG THERAPY 01/31/2018 HARMONY LAWRENCE MD Ot Z86.73 PRSNL HX OF TIA (TIA), AND CEREB INFRC W 02/01/2018 HARMONY LAWRENCE MD, Ot C61 MALIGNANT NEOPLASM OF PROSTATE 02/01/2018 HARMONY LAWRENCE MD, Ot E03.9 HYPOTHYROIDISM, UNSPECIFIED 02/01/2018 HARMONY LAWRENCE MD Ot E78.5 HYPERLIPIDEMIA, UNSPECIFIED 02/01/2018 HARMONY LAWRENCE MD Ot 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 02/01/2018 HARMONY LAWRENCE MD Ot M19.91 PRIMARY OSTEOARTHRITIS, UNSPECIFIED SITE 02/01/2018 HARMONY LAWRENCE MD Ot Z79.899 OTHER RETURN TO SERVICE INSPECTOR (CURRENT) DRUG THERAPY 02/01/2018 HARMONY LAWRENCE MD, Ot Z86.73 PRSNL HX OF TIA (TIA), AND CEREB INFRC W 03/15/2018 AQUILINO DUDLEY MD Ot E11.9 TYPE 2 DIABETES MELLITUS WITHOUT COMPLIC 03/15/2018 AQUILINO DUDLEY MD Ot E78.00 PURE HYPERCHOLESTEROLEMIA, UNSPECIFIED 03/15/2018 AQUILINO DUDLEY MD Ot F03.90 UNSPECIFIED DEMENTIA 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L 03/15/2018 AQUILINO DUDLEY MD Ot I10 ESSENTIAL (PRIMARY) HYPERTENSION 03/15/2018 AQUILINO DUDLEY MD Ot 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 03/15/2018 AQUILINO DUDLEY MD Ot 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 03/15/2018 AQUILINO DUDLEY MD Ot R42 DIZZINESS AND GIDDINESS 03/15/2018 AQUILINO DUDLEY MD Ot Z79.82 RETURN TO SERVICE INSPECTOR (CURRENT) USE OF ASPIRIN 03/15/2018 AQUILINO DUDLEY MD Ot Z79.84 [facility] (CURRENT) USE OF ORAL HYPOGLYC 03/15/2018 AQUILINO DUDLEY MD, Ot Z85.46 PERSONAL HISTORY OF MALIGNANT NEOPLASM O 03/15/2018 AQUILINO DUDLEY MD, Ot Z86.73 PRSNL HX OF TIA (TIA), AND CEREB INFRC W 03/15/2018 AQUILINO DUDLEY MD Ot Z87.19 PERSONAL HISTORY OF OTHER DISEASES OF TH 03/15/2018 AQUILINO DUDLEY MD, Ot Z88.5 ALLERGY STATUS TO NARCOTIC AGENT STATUS 03/15/2018 AQUILINO DUDLEY MD, Ot Z88.6 ALLERGY STATUS TO ANALGESIC AGENT STATUS 03/15/2018 AQUILINO DUDLEY MD, Ot Z90.89 ACQUIRED ABSENCE OF OTHER ORGANS 03/15/2018 AQUILINO DUDLEY MD Ot Z95.5 PRESENCE OF CORONARY ANGIOPLASTY IMPLANT 03/17/2018 AQUILINO DUDLEY MD Ot E11.9 TYPE 2 DIABETES MELLITUS WITHOUT COMPLIC 03/17/2018 AQUILINO DUDLEY MD Ot E78.00 PURE HYPERCHOLESTEROLEMIA, UNSPECIFIED 03/17/2018 AQUILINO DUDLEY MD Ot F03.90 UNSPECIFIED DEMENTIA 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L 03/17/2018 AQUILINO DUDLEY MD Ot I10 ESSENTIAL (PRIMARY) HYPERTENSION 03/17/2018 AQUILINO DUDLEY MD Ot 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 03/17/2018 AQUILINO DUDLEY MD Ot 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 03/17/2018 AQUILINO DUDLEY MD Ot R42 DIZZINESS AND GIDDINESS 03/17/2018 AQUILINO DUDLEY MD, Ot Z79.82 [facility] (CURRENT) USE OF ASPIRIN 03/17/2018 AQUILINO DUDLEY MD, Ot Z79.84 [facility] (CURRENT) USE OF ORAL HYPOGLYC 03/17/2018 AQUILINO DUDLEY MD, Ot Z85.46 PERSONAL HISTORY OF MALIGNANT NEOPLASM O 03/17/2018 AQUILINO DUDLEY MD, Ot Z86.73 PRSNL HX OF TIA (TIA), AND CEREB INFRC W 03/17/2018 AQUILINO DUDLEY MD, Ot Z87.19 PERSONAL HISTORY OF OTHER DISEASES OF TH 03/17/2018 AQUILINO DUDLEY MD Ot Z88.5 ALLERGY STATUS TO NARCOTIC AGENT STATUS 03/17/2018 AQUILINO DUDLEY MD, Ot Z88.6 ALLERGY STATUS TO ANALGESIC AGENT STATUS 03/17/2018 AQUILINO DUDLEY MD, Ot Z90.89 ACQUIRED ABSENCE OF OTHER ORGANS 03/17/2018 AQUILINO DUDLEY MD Ot Z95.5 PRESENCE OF CORONARY ANGIOPLASTY IMPLANT 03/21/2018 HARMONY LAWRENCE MD Ot C61 MALIGNANT NEOPLASM OF PROSTATE 03/21/2018 HARMONY LAWRENCE MD Ot E03.9 HYPOTHYROIDISM, UNSPECIFIED 03/21/2018 HARMONY LAWRENCE MD Ot E78.5 HYPERLIPIDEMIA, UNSPECIFIED 03/21/2018 HARMONY LAWRENCE MD Ot 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 2 COUGH 03/22/2018 ANJALI GRIMES FACC, ALI FACP CCDS Ot 414.00 CORON ATHEROSCLER NOS TYPE VESSEL, NATIV 03/22/2018 ANJALI GRIMES FACC, ALI FACP CCDS Ot 427.89 CARDIAC DYSRHYTHMIAS NEC 03/22/2018 ANJALI GRIMES FACC, ALI FACP CCDS Ot 434.91 CEREBRAL ART OCCLUSION NOS W CEREBRAL IN 03/22/2018 ANJALI GRIMES FACC, ALI FACP CCDS Ot 440.9 ATHEROSCLEROSIS NOS 03/22/2018 RAMA PAGAN FIRE FIGHTING EQUIPMENT SPECIALIST Ot 786.2 COUGH 03/22/2018 RAMA PAGAN FIRE FIGHTING EQUIPMENT SPECIALIST Ot 789.00 ABDOMINAL PAIN, UNSPECIFIED SITE 03/22/2018 OLIVER ARIAS MD Ot V72.84 EXAM PRE-OPERATIVE NOS 03/22/2018 HARPAL COBURN MD Ot 600.0 0 HYPERTROPHY (BENIGN) OF PROSTATE W/O URI 03/22/2018 HARPAL COBURN MD Ot V72.6 3 PRE-PROCEDURAL LABORATORY EXAMINATION 03/22/2018 IRISH MD, HARPAL A Ot V74.8 SCREEN-BACTERIAL DIS NEC 03/22/2018 GEORGIE GRIMES, DAYDAY Valdez Ot E86.0 DEHYDRATION 03/22/2018 GALE MAY Ot E78.4 OTHER HYPERLIPIDEMIA 03/22/2018 GALE MAY [employer]RE [employer] E[employer]IPMENT SPECIALIST Ot 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 03/22/2018 NATALYA MORAN GERMINATION WORKER Ot R0 5 COUGH 03/22/2018 DAYDAY JACQUES MD Ot R09.82 POSTNASAL DRIP 03/22/2018 DAYDAY JACQUES MD Ot R93.8 ABNORMAL FINDINGS ON DIAGNOSTIC IMAGING 03/22/2018 ANJALI GRIMES FACC, ALI FACP CCDS Ot E78.4 OTHER HYPERLIPIDEMIA 03/22/2018 ANJALI GRIMES FACC, ALI FACP CCDS Ot 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 03/22/2018 ANJALI GRIMES FACC, ALI FACP CCDS Ot 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 03/22/2018 ANJALI GRIMES FACC, ALI FACP CCDS Ot R00.1 BRADYCARDIA, UNSPECIFIED 03/22/2018 ANJALI GRIMES FACC, ALI FACP CCDS Ot Z86.79 PERSONAL HISTORY OF OTHER DISEASES OF TH 03/22/2018 IRISH GRIMES, HARPAL Valdez Ot C61 MALIGNANT NEOPLASM OF PROSTATE 03/22/2018 NATALYA MORAN GERMINATION WORKER Ot K59.00 CONSTIPATION, UNSPECIFIED 03/22/2018 NATALYA MORAN GERMINATION WORKER Ot R10.9 UNSPECIFIED ABDOMINAL PAIN 03/22/2018 NATALYA MORAN GERMINATION WORKER Ot R10.9 UNSPECIFIED ABDOMINAL PAIN 03/22/2018 HUGO GRIMES, OLIVER Sutton Ot 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 03/22/2018 HARMONY LAWRENCE MD Ot C61 MALIGNANT NEOPLASM OF PROSTATE 03/22/2018 HARMONY LAWRENCE MD Ot E03.9 HYPOTHYROIDISM, UNSPECIFIED 03/22/2018 HARMONY LAWRENCE MD Ot E78.5 HYPERLIPIDEMIA, UNSPECIFIED 03/22/2018 HARMONY LAWRENCE MD Ot 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 03/22/2018 HARMONY LAWRENCE MD Ot M19.91 PRIMARY OSTEOARTHRITIS, UNSPECIFIED SITE 03/22/2018 HARMONY LAWRENCE MD Ot Z79.899 OTHER RETURN TO SERVICE INSPECTOR (CURRENT) DRUG THERAPY 03/22/2018 HOWARD MD, ANTUNEZ Ot Z86.73 PRSNL HX OF TIA (TIA), AND CEREB INFRC W 05/05/2018 HARMONY LAWRENCE MD Ot C61 MALIGNANT NEOPLASM OF PROSTATE 05/05/2018 HARMONY LAWRENCE MD Ot E03.9 HYPOTHYROIDISM, UNSPECIFIED 05/05/2018 HARMONY LAWRENCE MD Ot E78.5 HYPERLIPIDEMIA, UNSPECIFIED 05/05/2018 HARMONY LAWRENCE MD Ot 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 05/05/2018 HARMONY LAWRENCE MD Ot M19.91 PRIMARY OSTEOARTHRITIS, UNSPECIFIED SITE 05/05/2018 HARMONY LAWRENCE MD Ot Z79.899 OTHER RETURN TO SERVICE INSPECTOR (CURRENT) DRUG THERAPY 05/05/2018 HARMONY LAWRENCE MD Ot Z86.73 PRSNL HX OF TIA (TIA), AND CEREB INFRC W 05/12/2018 HARMONY LAWRENCE MD Ot C61 MALIGNANT NEOPLASM OF PROSTATE 05/12/2018 HARMONY LAWRENCE MD Ot E03.9 HYPOTHYROIDISM, UNSPECIFIED 05/12/2018 HARMONY LAWRENCE MD Ot E78.5 HYPERLIPIDEMIA, UNSPECIFIED 05/12/2018 HARMONY LAWRENCE MD Ot 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 05/12/2018 HARMONY LAWRENCE MD Ot M19.91 PRIMARY OSTEOARTHRITIS, UNSPECIFIED SITE 05/12/2018 HARMONY LAWRENCE MD Ot Z79.899 OTHER [facility] (CURRENT) DRUG THERAPY 05/12/2018 HARMONY LAWRENCE MD Ot Z86.73 PRSNL HX OF TIA (TIA), AND CEREB INFRC W 06/20/2018 HARMONY LAWRENCE MD Ot C61 MALIGNANT NEOPLASM OF PROSTATE 06/20/2018 HARMONY LAWRENCE MD Ot E03.9 HYPOTHYROIDISM, UNSPECIFIED 06/20/2018 HARMONY LAWRENCE MD Ot E78.5 HYPERLIPIDEMIA, UNSPECIFIED 06/20/2018 TORRI LAWRENCE MDNER Ot 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 06/20/2018 HARMONY LAWRENCE MD Ot M19.91 PRIMARY OSTEOARTHRITIS, UNSPECIFIED SITE 06/20/2018 HARMONY LAWRENCE MD Ot Z79.899 OTHER RETURN TO SERVICE INSPECTOR (CURRENT) DRUG THERAPY 06/20/2018 HARMONY LAWRENCE MD Ot Z86.73 PRSNL HX OF TIA (TIA), AND CEREB INFRC W 06/21/2018 HARMONY LAWRENCE MD Ot C61 MALIGNANT NEOPLASM OF PROSTATE 06/21/2018 HARMONY LAWRENCE MD Ot E03.9 HYPOTHYROIDISM, UNSPECIFIED 06/21/2018 HARMONY LAWRENCE MD Ot E78.5 HYPERLIPIDEMIA, UNSPECIFIED 06/21/2018 HARMONY LAWRENCE MD Ot 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 06/21/2018 HARMONY LAWRENCE MD, Ot M19.91 PRIMARY OSTEOARTHRITIS, UNSPECIFIED SITE 06/21/2018 HARMONY LAWRENCE MD Ot Z79.899 OTHER RETURN TO SERVICE INSPECTOR (CURRENT) DRUG THERAPY 06/21/2018 HARMONY LAWRENCE MD, Ot Z86.73 PRSNL HX OF TIA (TIA), AND CEREB INFRC W 06/22/2018 ANJALI GRIMES FACC, ALI FACP CCDS Ot I08.0 RHEUMATIC DISORDERS OF BOTH MITRAL AND A 06/22/2018 ANJALI GRIMES FACC, ALI FACP CCDS Ot I10 ESSENTIAL (PRIMARY) HYPERTENSION 06/22/2018 ANJALI GRIMES FAC, ALI FACP CCDS Ot 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89 OTHER SPECIFIED SOFT TISSUE DISORDERS 09/28/2018 HARMONY LAWRENCE MD Ot C61 MALIGNANT NEOPLASM OF PROSTATE 09/28/2018 HARMONY LAWRENCE MD Ot E03.9 HYPOTHYROIDISM, UNSPECIFIED 09/28/2018 HARMONY LAWRENCE MD Ot E78.5 HYPERLIPIDEMIA, UNSPECIFIED 09/28/2018 HARMONY LAWRENCE MD Ot 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 09/28/2018 HARMONY LAWRENCE MD Ot M19.91 PRIMARY OSTEOARTHRITIS, UNSPECIFIED SITE 09/28/2018 HARMONY LAWRENCE MD Ot Z79.899 OTHER [facility] (CURRENT) DRUG THERAPY 09/28/2018 HARMONY LAWRENCE MD Ot Z86.73 PRSNL HX OF TIA (TIA), AND CEREB INFRC W 10/18/2018 ANJALI GRIMES [facility], ALI FACP CCDS Ot I08.0 RHEUMATIC DISORDERS OF BOTH MITRAL AND A 10/18/2018 ANJALI GRIMES [facility], ALI FACP CCDS Ot I10 ESSENTIAL (PRIMARY) HYPERTENSION 10/18/2018 ANJALI GRIMES [facility], ALI FACP CCDS Ot 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 10/18/2018 ANJALI GRIMES [facility], ALI FACP CCDS Ot I77.9 DISORDER OF ARTERIES AND ARTERIOLES, UNS 10/18/2018 ANJALI GRIMES [facility], ALI FACP CCDS Ot M79.89 OTHER SPECIFIED SOFT TISSUE DISORDERS 11/03/2018 HARMONY LAWRENCE MD Ot C61 MALIGNANT NEOPLASM OF PROSTATE 11/03/2018 HARMONY LAWRENCE MD Ot E03.9 HYPOTHYROIDISM, UNSPECIFIED 11/03/2018 HARMONY LAWRENCE MD Ot E78.5 HYPERLIPIDEMIA, UNSPECIFIED 11/03/2018 HARMONY LAWRENCE MD Ot 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 11/03/2018 HARMONY LAWRENCE MD Ot M19.91 PRIMARY OSTEOARTHRITIS, UNSPECIFIED SITE 11/03/2018 HARMONY LAWRENCE MD Ot Z79.899 OTHER [facility] (CURRENT) DRUG THERAPY 11/03/2018 HARMONY LAWRENCE MD Ot Z86.73 PRSNL HX OF TIA (TIA), AND CEREB INFRC W 12/03/2018 HARMONY LAWRENCE MD Ot C61 MALIGNANT NEOPLASM OF PROSTATE 12/03/2018 HARMONY LAWRENCE MD Ot E03.9 HYPOTHYROIDISM, UNSPECIFIED 12/03/2018 HARMONY LAWRENCE MD Ot E78.5 HYPERLIPIDEMIA, UNSPECIFIED 12/03/2018 HARMONY LAWRENCE MD Ot 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 12/03/2018 HARMONY LAWRENCE MD Ot M19.91 PRIMARY OSTEOARTHRITIS, UNSPECIFIED SITE 12/03/2018 HARMONY LAWRENCE MD Ot Z79.899 OTHER [facility] (CURRENT) DRUG THERAPY 12/03/2018 HARMONY LAWRENCE MD Ot Z86.73 PRSNL HX OF TIA (TIA), AND CEREB INFRC W 12/17/2018 HARMONY LAWRENCE MD Ot C61 MALIGNANT NEOPLASM OF PROSTATE 12/17/2018 HARMONY LAWRENCE MD Ot E03.9 HYPOTHYROIDISM, UNSPECIFIED 12/17/2018 HARMONY LAWRENCE MD Ot E78.5 HYPERLIPIDEMIA, UNSPECIFIED 12/17/2018 HARMONY LAWRENCE MD Ot 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 12/17/2018 HARMONY LAWRENCE MD Ot M19.91 PRIMARY OSTEOARTHRITIS, UNSPECIFIED SITE 12/17/2018 HARMONY LAWRENCE MD Ot Z79.899 OTHER RETURN TO SERVICE INSPECTOR (CURRENT) DRUG THERAPY 12/17/2018 HARMONY LAWRENCE MD Ot Z86.73 PRSNL HX OF TIA (TIA), AND CEREB INFRC W 02/16/2019 ANJALI GRIMES FACC, ALI FACP CCDS Ot 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 02/16/2019 ANJALI GRIMES FACC, ALI FACP CCDS Ot I65.29 OCCLUSION AND STENOSIS OF UNSPECIFIED CA 02/16/2019 ANJALI GRIMES FACC, ALI FACP CCDS Ot R00.1 BRADYCARDIA, UNSPECIFIED 02/16/2019 ANJALI GRIMES FACC, ALI FACP CCDS Ot Z86.79 PERSONAL HISTORY OF OTHER DISEASES OF TH 02/19/2019 HARMONY LAWRENCE MD Ot C61 MALIGNANT NEOPLASM OF PROSTATE 02/19/2019 HARMONY LAWRENCE MD Ot E03.9 HYPOTHYROIDISM, UNSPECIFIED 02/19/2019 HARMONY LAWRENCE MD Ot E78.5 HYPERLIPIDEMIA, UNSPECIFIED 02/19/2019 HARMONY LAWRENCE MD Ot 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 02/19/2019 HARMONY LAWRENCE MD Ot M19.91 PRIMARY OSTEOARTHRITIS, UNSPECIFIED SITE 02/19/2019 HARMONY LAWRENCE MD Ot Z79.899 OTHER RETURN TO SERVICE INSPECTOR (CURRENT) DRUG THERAPY 02/19/2019 HARMONY LAWRENCE MD Ot Z86.73 PRSNL HX OF TIA (TIA), AND CEREB INFRC W 03/06/2019 ANJALI GRIMES FACC, ALI FACP CCDS Ot 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 03/06/2019 ANJALI GRIMES FACC, ALI FACP CCDS Ot I65.29 OCCLUSION AND STENOSIS OF UNSPECIFIED CA 03/06/2019 ANJALI GRIMES FACC, ALI FACP CCDS Ot R00.1 BRADYCARDIA, UNSPECIFIED 03/06/2019 ANJALI GRIMES FACC, ALI FACP CCDS Ot Z86.79 PERSONAL HISTORY OF OTHER DISEASES OF TH 03/12/2019 ANJALI LIRA, WILNER FACP CCDS Ot 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 03/12/2019 ANJALI LIRA, ALI FACP CCDS Ot I65.29 OCCLUSION AND STENOSIS OF UNSPECIFIED CA 03/12/2019 ANJALI LIRA, ALI FACP CCDS Ot R00.1 BRADYCARDIA, UNSPECIFIED 03/12/2019 ANJALI LIRA, ALI FACP CCDS Ot Z86.79 PERSONAL HISTORY OF OTHER DISEASES OF 03/15/2019 HARMONY LAWRENCE MD, Ot C61 MALIGNANT NEOPLASM OF PROSTATE 04/03/2019 HARMONY LAWRENCE MD, Ot C61 MALIGNANT NEOPLASM OF PROSTATE 05/16/2019 HARMONY LAWRENCE MD, Ot C61 MALIGNANT NEOPLASM OF PROSTATE 05/16/2019 HARMONY LAWRENCE MD, Ot C61 MALIGNANT NEOPLASM OF PROSTATE 05/20/2019 HARMONY LAWRENCE MD, Ot C61 MALIGNANT NEOPLASM OF PROSTATE 05/21/2019 HARMONY LAWRENCE MD, Ot C61 MALIGNANT NEOPLASM OF PROSTATE Procedures Code Description Performed By Per formed On 00.40 11/30/2011 00.45 11/30/2011 00.66 11/30/2011 36.07 11/30/2011 37.22 11/30/2011 88.53 11/30/2011 88.56 11/30/2011 [id number] [facility] MGMT 03/29/2012 Results Test Result Range Comprehensive metabolic panel - 01/26/16 14:55 Serum or plasma sodium measurement (moles/volume) 123 mmol/L 135-145 Serum or plasma potassium measurement (moles/volume) 4.4 mmol/L 3.6-5.0 Serum or plasma chloride measurement (moles/volume) 96 mmol/L 98-107 Carbon dioxide 20 mmol/L 21-32 Serum or plasma anion gap determination (moles/volume) 7 mmol/L 5-14 Serum or plasma urea nitrogen measurement (mass/volume ) 16 mg/dL 7-18 Serum or plasma creatinine measurement (mass/volume) 0.90 mg/dL 0.60-1.30 Serum or plasma urea nitrogen/creatinine mass ratio 18 NRG Serum or plasma creatinine measurement w ith calculation of estimated glomerular filtration rate > NRG Serum or plasma glucose measurement (mass/volume) 128 mg/dL 70-105 Serum or plasma calcium measurement (mass/volume) 8.8 mg/dL 8.5-10.1 Serum or plasma total bilirubin measurement (mass/volu me) 0.3 mg/dL 0.1-1.0 Serum or plasma alkaline phosphatase kandice surement (enzymatic activity/volume) 73 U/L 40-136 Serum or plasma aspartate aminotransfera se measurement (enzymatic activity/volume) 21 U/L 5-34 Serum or plasma alanine aminotransferase measurement (enzymatic activity/volume) 20 U/L 0-55 Serum or plasma protein measurement (mass/volume) 6.0 g/dL 6.4-8.2 Serum or plasma albumin measurement (mass/volume) 3.9 g/dL 3.2-4.5 Methicillin resistant Staphylococcus aur eus (MRSA) screening culture - 04/12/16 10:40 Methicillin resistant Staphylococcus aureus (MRSA) scr eening culture NEG NRG Complete blood count (CBC) with automate d white blood cell (WBC) differential - 11/08/16 11:00 Blood leukocytes automated count (number/volume) 8.2 10*3/uL 4.3-11.0 Blood erythrocytes automated count (number/volume) 3.93 10*6/uL 4.35-5.85 Venous blood hemoglobin measurement (mass/volume) 12.4 g/dL 13.3-17.7 Blood hematocrit (volume fraction) 37 % 40-54 Automated erythrocyte mean corpuscular volume 93 [ foz_us] 80-99 Automated erythrocyte mean corpuscular h emoglobin (mass per erythrocyte) 32 pg 25-34 Automated erythrocyte mean corpuscular h emoglobin concentration measurement (mass/volume) 34 g/dL 32-36 Automated erythrocyte distribution width ratio 14. 5 % 10.0- 14.5 Automated blood platelet count (count/volume) 164 10*3/uL [...] 10*3 1.0-4.0 Blood monocytes automated count (number/volume) 1. 5 10*3 0.0-1.0 Automated eosinophil count 0.0 10*3/uL 0 .0-0.3 Automated blood basophil count (count/volume) 0.0 10*3/uL 0.0-0.1 Whole blood basic metabolic panel - 07/23 11:00 Serum or plasma sodium measurement (moles/volume) 128 mmol/L 135-145 Serum or plasma potassium measurement (moles/volume) 4.4 mmol/L 3.6-5.0 Serum or plasma chloride measurement (moles/volume) 95 mmol/L 98-107 Carbon dioxide 22 mmol/L 21-32 Serum or plasma anion gap determination (moles/volume) 11 mmol/L 5-14 Serum or plasma urea nitrogen measurement (mass/volume ) 16 mg/dL 7-18 Serum or plasma creatinine measurement (mass/volume) 0.90 mg/dL 0.60-1.30 Serum or plasma urea nitrogen/creatinine mass ratio 18 NRG Serum or plasma creatinine measurement w ith calculation of estimated glomerular filtration rate > NRG Serum or plasma glucose measurement (mass/volume) 130 mg/dL 70-105 Serum or plasma calcium measurement (mass/volume) 8.7 mg/dL 8.5-10.1 Serum or plasma C reactive protein measu rement (mass/volume) - 11/08/16 11:00 Serum or plasma C reactive protein measurement (mass/v olume) 10.25 mg/dL 0.00-0.50 Blood manual differential performed dete ction - 11/08/16 11:00 Blood monocytes/100 leukocytes 12 % NRG Manual blood segmented neutrophils/100 leukocytes 82 % NRG Manual blood lymphocytes/100 leukocytes 6 % NRG Blood erythrocyte morphology finding identification NORMAL NRG Blood rouleaux detection by light microscopy SLIGH T NRG Erythrocyte sedimentation rate by james gren method - 11/08/16 11:00 Erythrocyte sedimentation rate by westergren method 16 mm 0- 30 [id number] - 05/12/17 13:06 Serum or plasma urea nitrogen measurement (mass/volume ) 18 mg/dL 7-18 Serum or plasma creatinine measurement (mass/volume) 1.04 mg/dL 0.60-1.30 Serum or plasma urea nitrogen/creatinine mass ratio 17 NRG Serum or plasma creatinine measurement w ith calculation of estimated glomerular filtration rate > NRG Complete blood count (CBC) with automate d white blood cell (WBC) differential - 06/25/17 04:30 Blood leukocytes automated count (number/volume) 4.7 10*3/uL 4.3-11.0 Blood erythrocytes automated count (number/volume) 4.15 10*6/uL 4.35-5.85 Venous blood hemoglobin measurement (mass/volume) 13.5 g/dL 13.3-17.7 Blood hematocrit (volume fraction) 38 % 40-54 Automated erythrocyte mean corpuscular volume 91 [ foz_us] 80-99 Automated erythrocyte mean corpuscular h emoglobin (mass per erythrocyte) 33 pg 25-34 Automated erythrocyte mean corpuscular h emoglobin concentration measurement (mass/volume) 36 g/dL 32-36 Automated erythrocyte distribution width ratio 13. 9 % 10.0- 14.5 Automated blood platelet count (count/volume) 170 10*3/uL [...] 10*3 1.0-4.0 Blood monocytes automated count (number/volume) 0. 7 10*3 0.0-1.0 Automated eosinophil count 0.0 10*3/uL 0 .0-0.3 Automated blood basophil count (count/volume) 0.0 10*3/uL 0.0-0.1 Comprehensive metabolic panel - 06/25/17 04:30 Serum or plasma sodium measurement (moles/volume) 131 mmol/L 135-145 Serum or plasma potassium measurement (moles/volume) 4.2 mmol/L 3.6-5.0 Serum or plasma chloride measurement (moles/volume) 97 mmol/L 98-107 Carbon dioxide 23 mmol/L 21-32 Serum or plasma anion gap determination (moles/volume) 11 mmol/L 5-14 Serum or plasma urea nitrogen measurement (mass/volume ) 16 mg/dL 7-18 Serum or plasma creatinine measurement (mass/volume) 0.88 mg/dL 0.60-1.30 Serum or plasma urea nitrogen/creatinine mass ratio 18 NRG Serum or plasma creatinine measurement w ith calculation of estimated glomerular filtration rate > NRG Serum or plasma glucose measurement (mass/volume) 92 mg/dL 70-105 Serum or plasma calcium measurement (mass/volume) 9.0 mg/dL 8.5-10.1 Serum or plasma total bilirubin measurement (mass/volu me) 0.6 mg/dL 0.1-1.0 Serum or plasma alkaline phosphatase kandice surement (enzymatic activity/volume) 75 U/L 40-136 Serum or plasma aspartate aminotransfera se measurement (enzymatic activity/volume) 29 U/L 5-34 Serum or plasma alanine aminotransferase measurement (enzymatic activity/volume) 22 U/L 0-55 Serum or plasma protein measurement (mass/volume) 5.5 g/dL 6.4-8.2 Serum or plasma albumin measurement (mass/volume) 3.8 g/dL 3.2-4.5 Serum or plasma troponin i.cardiac measu rement (mass/volume) - 06/25/17 04:30 Serum or plasma troponin i.cardiac measurement (mass/v olume) < ng/mL <0.30 Serum or plasma amylase measurement (enz ymatic activity/volume) - 06/25/17 04:30 Serum or plasma amylase measurement (enzymatic activit y/volume) 82 U/L 25-125 Lipase - 06/25/17 04:30 Lipase 36 U/L 8-78 Complete urinalysis with reflex to cultu re - 06/25/17 04:45 Urine color determination YELLOW NRG Urine clarity determination CLEAR NR G Urine pH measurement by test strip 7 5-9 Specific gravity of urine by test strip 1.010 1.016-1.022 Urine protein assay by test strip, semi-quantitative NEGATIVE NEGATIVE Urine glucose detection by automated test strip NE GATIVE NEGATIVE Erythrocytes detection in urine sediment by light micr oscopy 1+ NEGATIVE Urine ketones detection by automated test strip NE GATIVE NEGATIVE Urine nitrite detection by test strip NEGATIVE NEGATIVE Urine total bilirubin detection by test strip NEGA TIVE NEGATIVE Urine urobilinogen measurement by automated test strip (mass/volume) NORMAL NORMAL Urine leukocyte esterase detection by dipstick NEG ATIVE NEGATIVE Automated urine sediment erythrocyte cou nt by microscopy (number/high power field) [HPF] NRG Automated urine sediment leukocyte count by microscopy (number/high power field) NONE NRG Bacteria detection in urine sediment by light microsco py NEGATIVE NRG Squamous epithelial cells detection in u rine sediment by light microscopy RARE NRG Crystals detection in urine sediment by light microsco py NONE NRG Casts detection in urine sediment by light microscopy NONE NRG Mucus detection in urine sediment by light microscopy NEGATIVE NRG Complete urinalysis with reflex to culture NO NRG Complete blood count (CBC) with automate d white blood cell (WBC) differential - 09/10/17 14:09 Blood leukocytes automated count (number/volume) 8.4 10*3/uL 4.3-11.0 Blood erythrocytes automated count (number/volume) 3.91 10*6/uL 4.35-5.85 Venous blood hemoglobin measurement (mass/volume) 12.8 g/dL 13.3-17.7 Blood hematocrit (volume fraction) 37 % 40-54 Automated erythrocyte mean corpuscular volume 94 [ foz_us] 80-99 Automated erythrocyte mean corpuscular h emoglobin (mass per erythrocyte) 33 pg 25-34 Automated erythrocyte mean corpuscular h emoglobin concentration measurement (mass/volume) 35 g/dL 32-36 Automated erythrocyte distribution width ratio 14. 0 % 10.0- 14.5 Automated blood platelet count (count/volume) 163 10*3/uL [...] 10*3 1.0-4.0 Blood monocytes automated count (number/volume) 0. 4 10*3 0.0-1.0 Automated eosinophil count 0.0 10*3/uL 0 .0-0.3 Automated blood basophil count (count/volume) 0.0 10*3/uL 0.0-0.1 Comprehensive metabolic panel - 09/10/17 14:09 Serum or plasma sodium measurement (moles/volume) 132 mmol/L 135-145 Serum or plasma potassium measurement (moles/volume) 4.0 mmol/L 3.6-5.0 Serum or plasma chloride measurement (moles/volume) 100 mmol/L 98-107 Carbon dioxide 23 mmol/L 21-32 Serum or plasma anion gap determination (moles/volume) 9 mmol/L 5-14 Serum or plasma urea nitrogen measurement (mass/volume ) 17 mg/dL 7-18 Serum or plasma creatinine measurement (mass/volume) 0.98 mg/dL 0.60-1.30 Serum or plasma urea nitrogen/creatinine mass ratio 17 NRG Serum or plasma creatinine measurement w ith calculation of estimated glomerular filtration rate > NRG Serum or plasma glucose measurement (mass/volume) 220 mg/dL 70-105 Serum or plasma calcium measurement (mass/volume) 9.0 mg/dL 8.5-10.1 Serum or plasma total bilirubin measurement (mass/volu me) 0.5 mg/dL 0.1-1.0 Serum or plasma alkaline phosphatase kandice surement (enzymatic activity/volume) 75 U/L 40-136 Serum or plasma aspartate aminotransfera se measurement (enzymatic activity/volume) 30 U/L 5-34 Serum or plasma alanine aminotransferase measurement (enzymatic activity/volume) 17 U/L 0-55 Serum or plasma protein measurement (mass/volume) 5.8 g/dL 6.4-8.2 Serum or plasma albumin measurement (mass/volume) 4.0 g/dL 3.2-4.5 THYROID STIMULATING HORMONE - 09/10/17 1 4:09 THYROID STIMULATING HORMONE 1.42 u[iU]/mL 0.35-4.94 Serum or plasma C reactive protein measu rement (mass/volume) - 09/10/17 14:09 Serum or plasma C reactive protein measurement (mass/v olume) 0.03 mg/dL 0.00-0.50 Blood manual differential performed dete ction - 09/10/17 14:09 Blood monocytes/100 leukocytes 7 [...] Blood hemoglobin A1C measurement (mass/volume) 5.1 % 4.0-5.6 MEAN BLOOD GLUCOSE 100 % <=126 Complete urinalysis with reflex to cultu re - 09/10/17 14:46 Urine color determination YELLOW NRG Urine clarity determination CLEAR NR G Urine pH measurement by test strip 6.5 5-9 Specific gravity of urine by test strip 1.015 1.016-1.022 Urine protein assay by test strip, semi-quantitative 1+ NEGATIVE Urine glucose detection by automated test strip 4+ NEGATIVE Erythrocytes detection in urine sediment by light micr oscopy 1+ NEGATIVE Urine ketones detection by automated test strip NE GATIVE NEGATIVE Urine nitrite detection by test strip NEGATIVE NEGATIVE Urine total bilirubin detection by test strip NEGA TIVE NEGATIVE Urine urobilinogen measurement by automated test strip (mass/volume) NORMAL NORMAL Urine leukocyte esterase detection by dipstick NEG ATIVE NEGATIVE Automated urine sediment erythrocyte cou nt by microscopy (number/high power field) RARE NRG Automated urine sediment leukocyte count by microscopy (number/high power field) NONE NRG Bacteria detection in urine sediment by light microsco py NEGATIVE NRG Squamous epithelial cells detection in u rine sediment by light microscopy NONE NRG Crystals detection in urine sediment by light microsco py NONE NRG Casts detection in urine sediment by light microscopy NONE NRG Mucus detection in urine sediment by light microscopy NEGATIVE NRG Complete urinalysis with reflex to culture NO NRG Complete blood count (CBC) with automate d white blood cell (WBC) differential - 10/22/17 11:15 Blood leukocytes automated count (number/volume) 4.5 10*3/uL 4.3-11.0 Blood erythrocytes automated count (number/volume) 4.21 10*6/uL 4.35-5.85 Venous blood hemoglobin measurement (mass/volume) 14.0 g/dL 13.3-17.7 Blood hematocrit (volume fraction) 40 % 40-54 Automated erythrocyte mean corpuscular volume 94 [ foz_us] 80-99 Automated erythrocyte mean corpuscular h emoglobin (mass per erythrocyte) 33 pg 25-34 Automated erythrocyte mean corpuscular h emoglobin concentration measurement (mass/volume) 35 g/dL 32-36 Automated erythrocyte distribution width ratio 14. 6 % 10.0- 14.5 Automated blood platelet count (count/volume) 177 10*3/uL [...] 10*3 1.0-4.0 Blood monocytes automated count (number/volume) 0. 6 10*3 0.0-1.0 Automated eosinophil count 0.0 10*3/uL 0 .0-0.3 Automated blood basophil count (count/volume) 0.0 10*3/uL 0.0-0.1 Comprehensive metabolic panel - 10/22/17 11:15 Serum or plasma sodium measurement (moles/volume) 133 mmol/L 135-145 Serum or plasma potassium measurement (moles/volume) 4.8 mmol/L 3.6-5.0 Serum or plasma chloride measurement (moles/volume) 99 mmol/L 98-107 Carbon dioxide 25 mmol/L 21-32 Serum or plasma anion gap determination (moles/volume) 9 mmol/L 5-14 Serum or plasma urea nitrogen measurement (mass/volume ) 19 mg/dL 7-18 Serum or plasma creatinine measurement (mass/volume) 1.00 mg/dL 0.60-1.30 Serum or plasma urea nitrogen/creatinine mass ratio 19 NRG Serum or plasma creatinine measurement w ith calculation of estimated glomerular filtration rate > NRG Serum or plasma glucose measurement (mass/volume) 111 mg/dL 70-105 Serum or plasma calcium measurement (mass/volume) 9.5 mg/dL 8.5-10.1 Serum or plasma total bilirubin measurement (mass/volu me) 0.6 mg/dL 0.1-1.0 Serum or plasma alkaline phosphatase kandice surement (enzymatic activity/volume) 76 U/L 40-136 Serum or plasma aspartate aminotransfera se measurement (enzymatic activity/volume) 27 U/L 5-34 Serum or plasma alanine aminotransferase measurement (enzymatic activity/volume) 20 U/L 0-55 Serum or plasma protein measurement (mass/volume) 5.9 g/dL 6.4-8.2 Serum or plasma albumin measurement (mass/volume) 3.9 g/dL 3.2-4.5 Lipase - 10/22/17 11:15 Lipase 39 U/L 8-78 Fibrin D-dimer FEU measurement in platel et poor plasma (mass/volume) - 10/22/17 11:15 Fibrin D-dimer FEU measurement in platelet poor plasma (mass/volume) 0.66 ug/mL 0.00-0.49 Complete urinalysis with reflex to cultu re - 12/03/17 11:10 Urine color determination YELLOW NRG Urine clarity determination CLEAR NR G Urine pH measurement by test strip 6 5-9 Specific gravity of urine by test strip 1.010 1.016-1.022 Urine protein assay by test strip, semi-quantitative NEGATIVE NEGATIVE Urine glucose detection by automated test strip NE GATIVE NEGATIVE Erythrocytes detection in urine sediment by light micr oscopy 1+ NEGATIVE Urine ketones detection by automated test strip NE GATIVE NEGATIVE Urine nitrite detection by test strip NEGATIVE NEGATIVE Urine total bilirubin detection by test strip NEGA TIVE NEGATIVE Urine urobilinogen measurement by automated test strip (mass/volume) NORMAL NORMAL Urine leukocyte esterase detection by dipstick NEG ATIVE NEGATIVE Automated urine sediment erythrocyte cou nt by microscopy (number/high power field) NONE NRG Automated urine sediment leukocyte count by microscopy (number/high power field) NONE NRG Bacteria detection in urine sediment by light microsco py NEGATIVE NRG Squamous epithelial cells detection in u rine sediment by light microscopy NONE NRG Crystals detection in urine sediment by light microsco py NONE NRG Casts detection in urine sediment by light microscopy NONE NRG Mucus detection in urine sediment by light microscopy NEGATIVE NRG Complete urinalysis with reflex to culture NO NRG Complete blood count (CBC) with automate d white blood cell (WBC) differential - 12/03/17 11:40 Blood leukocytes automated count (number/volume) 4.4 10*3/uL 4.3-11.0 Blood erythrocytes automated count (number/volume) 4.39 10*6/uL 4.35-5.85 Venous blood hemoglobin measurement (mass/volume) 14.6 g/dL 13.3-17.7 Blood hematocrit (volume fraction) 41 % 40-54 Automated erythrocyte mean corpuscular volume 93 [ foz_us] 80-99 Automated erythrocyte mean corpuscular h emoglobin (mass per erythrocyte) 33 pg 25-34 Automated erythrocyte mean corpuscular h emoglobin concentration measurement (mass/volume) 36 g/dL 32-36 Automated erythrocyte distribution width ratio 13. 8 % 10.0- 14.5 Automated blood platelet count (count/volume) 192 10*3/uL [...] 10*3 1.0-4.0 Blood monocytes automated count (number/volume) 0. 6 10*3 0.0-1.0 Automated eosinophil count 0.0 10*3/uL 0 .0-0.3 Automated blood basophil count (count/volume) 0.0 10*3/uL 0.0-0.1 Comprehensive metabolic panel - 12/03/17 11:40 Serum or plasma sodium measurement (moles/volume) 133 mmol/L 135-145 Serum or plasma potassium measurement (moles/volume) 4.5 mmol/L 3.6-5.0 Serum or plasma chloride measurement (moles/volume) 97 mmol/L 98-107 Carbon dioxide 30 mmol/L 21-32 Serum or plasma anion gap determination (moles/volume) 6 mmol/L 5-14 Serum or plasma urea nitrogen measurement (mass/volume ) 17 mg/dL 7-18 Serum or plasma creatinine measurement (mass/volume) 0.92 mg/dL 0.60-1.30 Serum or plasma urea nitrogen/creatinine mass ratio 18 NRG Serum or plasma creatinine measurement w ith calculation of estimated glomerular filtration rate > NRG Serum or plasma glucose measurement (mass/volume) 88 mg/dL 70-105 Serum or plasma calcium measurement (mass/volume) 9.8 mg/dL 8.5-10.1 Serum or plasma total bilirubin measurement (mass/volu me) 0.5 mg/dL 0.1-1.0 Serum or plasma alkaline phosphatase kandice surement (enzymatic activity/volume) 94 U/L 40-136 Serum or plasma aspartate aminotransfera se measurement (enzymatic activity/volume) 26 U/L 5-34 Serum or plasma alanine aminotransferase measurement (enzymatic activity/volume) 18 U/L 0-55 Serum or plasma protein measurement (mass/volume) 5.7 g/dL 6.4-8.2 Serum or plasma albumin measurement (mass/volume) 4.4 g/dL 3.2-4.5 Lipase - 12/03/17 11:40 Lipase 29 U/L 8-78 Complete blood count (CBC) with automate d white blood cell (WBC) differential - 12/13/17 04:00 Blood leukocytes automated count (number/volume) 5.5 10*3/uL 4.3-11.0 Blood erythrocytes automated count (number/volume) 4.11 10*6/uL 4.35-5.85 Venous blood hemoglobin measurement (mass/volume) 13.2 g/dL 13.3-17.7 Blood hematocrit (volume fraction) 38 % 40-54 Automated erythrocyte mean corpuscular volume 92 [ foz_us] 80-99 Automated erythrocyte mean corpuscular h emoglobin (mass per erythrocyte) 32 pg 25-34 Automated erythrocyte mean corpuscular h emoglobin concentration measurement (mass/volume) 35 g/dL 32-36 Automated erythrocyte distribution width ratio 13. 7 % 10.0- 14.5 Automated blood platelet count (count/volume) 184 10*3/uL [...] 10*3 1.0-4.0 Blood monocytes automated count (number/volume) 0. 8 10*3 0.0-1.0 Automated eosinophil count 0.0 10*3/uL 0 .0-0.3 Automated blood basophil count (count/volume) 0.0 10*3/uL 0.0-0.1 Comprehensive metabolic panel - 12/13/17 04:00 Serum or plasma sodium measurement (moles/volume) 129 mmol/L 135-145 Serum or plasma potassium measurement (moles/volume) 4.0 mmol/L 3.6-5.0 Serum or plasma chloride measurement (moles/volume) 96 mmol/L 98-107 Carbon dioxide 26 mmol/L 21-32 Serum or plasma anion gap determination (moles/volume) 7 mmol/L 5-14 Serum or plasma urea nitrogen measurement (mass/volume ) 21 mg/dL 7-18 Serum or plasma creatinine measurement (mass/volume) 0.79 mg/dL 0.60-1.30 Serum or plasma urea nitrogen/creatinine mass ratio 27 NRG Serum or plasma creatinine measurement w ith calculation of estimated glomerular filtration rate > NRG Serum or plasma glucose measurement (mass/volume) 79 mg/dL 70-105 Serum or plasma calcium measurement (mass/volume) 9.1 mg/dL 8.5-10.1 Serum or plasma total bilirubin measurement (mass/volu me) 0.4 mg/dL 0.1-1.0 Serum or plasma alkaline phosphatase kandice surement (enzymatic activity/volume) 82 U/L 40-136 Serum or plasma aspartate aminotransfera se measurement (enzymatic activity/volume) 25 U/L 5-34 Serum or plasma alanine aminotransferase measurement (enzymatic activity/volume) 21 U/L 0-55 Serum or plasma protein measurement (mass/volume) 5.4 g/dL 6.4-8.2 Serum or plasma albumin measurement (mass/volume) 3.8 g/dL 3.2-4.5 Serum or plasma amylase measurement (enz ymatic activity/volume) - 12/13/17 04:00 Serum or plasma amylase measurement (enzymatic activit y/volume) 64 U/L 25-125 Lipase - 12/13/17 04:00 Lipase 29 U/L 8-78 Complete urinalysis with reflex to cultu re - 12/13/17 05:10 Urine color determination YELLOW NRG Urine clarity determination CLEAR NR G Urine pH measurement by test strip 8 5-9 Specific gravity of urine by test strip 1.015 1.016-1.022 Urine protein assay by test strip, semi-quantitative NEGATIVE NEGATIVE Urine glucose detection by automated test strip NE GATIVE NEGATIVE Erythrocytes detection in urine sediment by light micr oscopy 1+ NEGATIVE Urine ketones detection by automated test strip NE GATIVE NEGATIVE Urine nitrite detection by test strip NEGATIVE NEGATIVE Urine total bilirubin detection by test strip NEGA TIVE NEGATIVE Urine urobilinogen measurement by automated test strip (mass/volume) NORMAL NORMAL Urine leukocyte esterase detection by dipstick NEG ATIVE NEGATIVE Automated urine sediment erythrocyte cou nt by microscopy (number/high power field) RARE NRG Automated urine sediment leukocyte count by microscopy (number/high power field) NONE NRG Bacteria detection in urine sediment by light microsco py TRACE NRG Squamous epithelial cells detection in u rine sediment by light microscopy RARE NRG Crystals detection in urine sediment by light microsco py PRESENT NRG Casts detection in urine sediment by light microscopy NONE NRG Mucus detection in urine sediment by light microscopy NEGATIVE NRG Complete urinalysis with reflex to culture NO NRG Amorphous sediment detection in urine sediment by ligh t microscopy FEW RANDA PHOSPHATE NRG Bacterial throat culture - 12/28/17 16:3 1 Bacterial throat culture NBS NRG Complete blood count (CBC) with automate d white blood cell (WBC) differential - 03/15/18 08:42 Blood leukocytes automated count (number/volume) 4.6 10*3/uL 4.3-11.0 Blood erythrocytes automated count (number/volume) 4.24 10*6/uL 4.35-5.85 Venous blood hemoglobin measurement (mass/volume) 13.4 g/dL 13.3-17.7 Blood hematocrit (volume fraction) 40 % 40-54 Automated erythrocyte mean corpuscular volume 93 [ foz_us] 80-99 Automated erythrocyte mean corpuscular h emoglobin (mass per erythrocyte) 32 pg 25-34 Automated erythrocyte mean corpuscular h emoglobin concentration measurement (mass/volume) 34 g/dL 32-36 Automated erythrocyte distribution width ratio 14. 2 % 10.0- 14.5 Automated blood platelet count (count/volume) 179 10*3/uL 130-400 Automated blood platelet mean volume measurement 10.5 [foz_us] 7.4-10.4 Automated blood neutrophils/100 leukocytes 54 % 42-75 Automated blood lymphocytes/100 leukocytes 33 % 12-44 Blood monocytes/100 leukocytes 12 % 0-12 Automated blood eosinophils/100 leukocytes 2 % 0-10 Automated blood basophils/100 leukocytes 0 % 0-10 Blood neutrophils automated count (number/volume) 2.5 10*3 1.8-7.8 Blood lymphocytes automated count (number/volume) 1.5 10*3 1.0-4.0 Blood monocytes automated count (number/volume) 0. 5 10*3 0.0-1.0 Automated eosinophil count 0.1 10*3/uL 0 .0-0.3 Automated blood basophil count (count/volume) 0.0 10*3/uL 0.0-0.1 Comprehensive metabolic panel - 03/15/18 08:42 Serum or plasma sodium measurement (moles/volume) 142 mmol/L 135-145 Serum or plasma potassium measurement (moles/volume) 3.4 mmol/L 3.6-5.0 Serum or plasma chloride measurement (moles/volume) 106 mmol/L 98-107 Carbon dioxide 26 mmol/L 21-32 Serum or plasma anion gap determination (moles/volume) 10 mmol/L 5-14 Serum or plasma urea nitrogen measurement (mass/volume ) 25 mg/dL 7-18 Serum or plasma creatinine measurement (mass/volume) 1.05 mg/dL 0.60-1.30 Serum or plasma urea nitrogen/creatinine mass ratio 24 NRG Serum or plasma creatinine measurement w ith calculation of estimated glomerular filtration rate > NRG Serum or plasma glucose measurement (mass/volume) 119 mg/dL 70-105 Serum or plasma calcium measurement (mass/volume) 10.1 mg/dL 8.5-10.1 Serum or plasma total bilirubin measurement (mass/volu me) 0.6 mg/dL 0.1-1.0 Serum or plasma alkaline phosphatase kandice surement (enzymatic activity/volume) 104 U/L 40-136 Serum or plasma aspartate aminotransfera se measurement (enzymatic activity/volume) 27 U/L 5-34 Serum or plasma alanine aminotransferase measurement (enzymatic activity/volume) 18 U/L 0-55 Serum or plasma protein measurement (mass/volume) 6.2 g/dL 6.4-8.2 Serum or plasma albumin measurement (mass/volume) 4.0 g/dL 3.2-4.5 CALCIUM CORRECTED 10.1 mg/dL 8.5-10.1 Magnesium - 03/15/18 08:42 Magnesium 2.1 mg/dL 1.8-2.4 Serum or plasma troponin i.cardiac measu rement (mass/volume) - 03/15/18 08:42 Serum or plasma troponin i.cardiac measurement (mass/v olume) < ng/mL <0.30 Complete blood count (CBC) with automate d white blood cell (WBC) differential - 11/27/18 10:46 Blood leukocytes automated count (number/volume) 3.5 10*3/uL 4.3-11.0 Blood erythrocytes automated count (number/volume) 3.97 10*6/uL 4.35-5.85 Venous blood hemoglobin measurement (mass/volume) 12.8 g/dL 13.3-17.7 Blood hematocrit (volume fraction) 38 % 40-54 Automated erythrocyte mean corpuscular volume 95 [ foz_us] 80-99 Automated erythrocyte mean corpuscular h emoglobin (mass per erythrocyte) 32 pg 25-34 Automated erythrocyte mean corpuscular h emoglobin concentration measurement (mass/volume) 34 g/dL 32-36 Automated erythrocyte distribution width ratio 13. 9 % 10.0- 14.5 Automated blood platelet count (count/volume) 162 10*3/uL 130-400 Automated blood platelet mean volume measurement 10.2 [foz_us] 7.4-10.4 Automated blood neutrophils/100 leukocytes 58 % 42-75 Automated blood lymphocytes/100 leukocytes 25 % 12-44 Blood monocytes/100 leukocytes 15 % 0-12 Automated blood eosinophils/100 leukocytes 3 % 0-10 Automated blood basophils/100 leukocytes 0 % 0-10 Blood neutrophils automated count (number/volume) 2.0 10*3 1.8-7.8 Blood lymphocytes automated count (number/volume) 0.9 10*3 1.0-4.0 Blood monocytes automated count (number/volume) 0. 5 10*3 0.0-1.0 Automated eosinophil count 0.1 10*3/uL 0 .0-0.3 Automated blood basophil count (count/volume) 0.0 10*3/uL 0.0-0.1 Comprehensive metabolic panel - 11/27/18 10:46 Serum or plasma sodium measurement (moles/volume) 136 mmol/L 135-145 Serum or plasma potassium measurement (moles/volume) 4.6 mmol/L 3.6-5.0 Serum or plasma chloride measurement (moles/volume) 101 mmol/L 98-107 Carbon dioxide 28 mmol/L 21-32 Serum or plasma anion gap determination (moles/volume) 7 mmol/L 5-14 Serum or plasma urea nitrogen measurement (mass/volume ) 24 mg/dL 7-18 Serum or plasma creatinine measurement (mass/volume) 1.06 mg/dL 0.60-1.30 Serum or plasma urea nitrogen/creatinine mass ratio 23 NRG Serum or plasma creatinine measurement w ith calculation of estimated glomerular filtration rate > NRG Serum or plasma glucose measurement (mass/volume) 84 mg/dL 70-105 Serum or plasma calcium measurement (mass/volume) 9.7 mg/dL 8.5-10.1 Serum or plasma total bilirubin measurement (mass/volu me) 0.4 mg/dL 0.1-1.0 Serum or plasma alkaline phosphatase kandice surement (enzymatic activity/volume) 82 U/L 40-136 Serum or plasma aspartate aminotransfera se measurement (enzymatic activity/volume) 29 U/L 5-34 Serum or plasma alanine aminotransferase measurement (enzymatic activity/volume) 19 U/L 0-55 Serum or plasma protein measurement (mass/volume) 5.7 g/dL 6.4-8.2 Serum or plasma albumin measurement (mass/volume) 3.9 g/dL 3.2-4.5 CALCIUM CORRECTED 9.8 mg/dL 8.5-10.1 Prostate specific ag [mass/volume] in se rum or plasma - 11/27/18 10:46 PSA EQUIMOLAR (EDE) 0.12 % 0.00-4.0 0 Complete blood count (CBC) with automate d white blood cell (WBC) differential - 07/11/19 15:18 Blood leukocytes automated count (number/volume) 5.4 10*3/uL 4.3-11.0 Blood erythrocytes automated count (number/volume) 3.92 10*6/uL 4.35-5.85 Venous blood hemoglobin measurement (mass/volume) 13.1 g/dL 13.3-17.7 Blood hematocrit (volume fraction) 38 % 40-54 Automated erythrocyte mean corpuscular volume 96 [ foz_us] 80-99 Automated erythrocyte mean corpuscular h emoglobin (mass per erythrocyte) 33 pg 25-34 Automated erythrocyte mean corpuscular h emoglobin concentration measurement (mass/volume) 35 g/dL 32-36 Automated erythrocyte distribution width ratio 15. 1 % 10.0- 14.5 Automated blood platelet count (count/volume) 201 10*3/uL 130-400 Automated blood platelet mean volume measurement 9.1 [foz_us] 7.4-10.4 Automated blood neutrophils/100 leukocytes 86 % 42-75 Automated blood lymphocytes/100 leukocytes 7 % 12-44 Blood monocytes/100 leukocytes 8 % 0-12 Automated blood eosinophils/100 leukocytes 0 % 0-10 Automated blood basophils/100 leukocytes 0 % 0-10 Blood neutrophils automated count (number/volume) 4.7 10*3 1.8-7.8 Blood lymphocytes automated count (number/volume) 0.4 10*3 1.0-4.0 Blood monocytes automated count (number/volume) 0. 4 10*3 0.0-1.0 Automated eosinophil count 0.0 10*3/uL 0 .0-0.3 Automated blood basophil count (count/volume) 0.0 10*3/uL 0.0-0.1 Comprehensive metabolic panel - 07/11/19 15:18 Serum or plasma sodium measurement (moles/volume) 130 mmol/L 135-145 Serum or plasma potassium measurement (moles/volume) 3.9 mmol/L 3.6-5.0 Serum or plasma chloride measurement (moles/volume) 96 mmol/L 98-107 Carbon dioxide 27 mmol/L 21-32 Serum or plasma anion gap determination (moles/volume) 7 mmol/L 5-14 Serum or plasma urea nitrogen measurement (mass/volume ) 20 mg/dL 7-18 Serum or plasma creatinine measurement (mass/volume) 1.10 mg/dL 0.60-1.30 Serum or plasma urea nitrogen/creatinine mass ratio 18 NRG Serum or plasma creatinine measurement w ith calculation of estimated glomerular filtration rate > NRG Serum or plasma glucose measurement (mass/volume) 160 mg/dL 70-105 Serum or plasma calcium measurement (mass/volume) 9.2 mg/dL 8.5-10.1 Serum or plasma total bilirubin measurement (mass/volu me) 0.4 mg/dL 0.1-1.0 Serum or plasma alkaline phosphatase kandice surement (enzymatic activity/volume) 81 U/L 40-136 Serum or plasma aspartate aminotransfera se measurement (enzymatic activity/volume) 30 U/L 5-34 Serum or plasma alanine aminotransferase measurement (enzymatic activity/volume) 27 U/L 0-55 Serum or plasma protein measurement (mass/volume) 5.9 g/dL 6.4-8.2 Serum or plasma albumin measurement (mass/volume) 3.9 g/dL 3.2-4.5 CALCIUM CORRECTED 9.3 mg/dL 8.5-10.1 Magnesium - 07/11/19 15:18 Magnesium 2.1 mg/dL 1.6-2.4 Serum or plasma troponin i.cardiac measu rement (mass/volume) - 07/11/19 15:18 Serum or plasma troponin i.cardiac measurement (mass/v olume) < ng/mL <0.028 Serum or plasma lithium measurement (mol es/volume) - 07/11/19 15:18 BNP PT 151.5 pg/mL <100.0 Manual absolute plasma cell count - 08/26 15:18 Blood monocytes/100 leukocytes 6 % NRG Manual blood segmented neutrophils/100 leukocytes 81 % NRG Blood band neutrophils/100 leukocytes 7 % NRG Manual blood lymphocytes/100 leukocytes 6 % NRG Manual eosinophils/100 leukocytes in nose 0 % NRG Manual blood basophils/100 leukocytes 0 % NRG Blood anisocytosis detection by light microscopy S LIGHT NRG Complete urinalysis with reflex to cultu re - 07/11/19 15:26 Urine color determination YELLOW NRG Urine clarity determination CLEAR NR G Urine pH measurement by test strip 7.0 5-9 Specific gravity of urine by test strip 1.015 1.016-1.022 Urine protein assay by test strip, semi-quantitative NEGATIVE NEGATIVE Urine glucose detection by automated test strip NE GATIVE NEGATIVE Erythrocytes detection in urine sediment by light micr oscopy NEGATIVE NEGATIVE Urine ketones detection by automated test strip NE GATIVE NEGATIVE Urine nitrite detection by test strip NEGATIVE NEGATIVE Urine total bilirubin detection by test strip NEGA TIVE NEGATIVE Urine urobilinogen measurement by automated test strip (mass/volume) 0.2 mg/dL < = 1.0 Urine leukocyte esterase detection by dipstick NEG ATIVE NEGATIVE Automated urine sediment erythrocyte cou nt by microscopy (number/high power field) RARE NRG Automated urine sediment leukocyte count by microscopy (number/high power field) NONE NRG Bacteria detection in urine sediment by light microsco py TRACE NRG Squamous epithelial cells detection in u rine sediment by light microscopy RARE NRG Crystals detection in urine sediment by light microsco py PRESENT NRG Casts detection in urine sediment by light microscopy PRESENT NRG Mucus detection in urine sediment by light microscopy NEGATIVE NRG Complete urinalysis with reflex to culture NO NRG Amorphous sediment detection in urine sediment by ligh t microscopy FEW RANDA PHOSPHATE NRG Hyaline casts detection in urine sediment by light garry roscopy 2-5 NRG Influenza virus A and B antigen detectio n - 07/11/19 15:26 FLU RESULT NEGATIVE FOR INFLUENZA A AND B ANTIGENS BY IA NRG Encounters ACCT No. Visit Date/Time Discharge Status Pt. Type Provider Facility Loc./Unit Complaint [id number] 06/28/2011 13:11:00 06/28/2011 23:59:5 9 CLS Outpatient ORACIO JACKSON DO [id number] 10/25/2012 14:58:00 Document Registration [id number] 03/28/2012 14:47:00 Document Registration [id number] 07/11/2019 14:49:00 17:14:00 DIS Emergency MARROQUIN ALEK MEDEIROS L [facility] ER MULTIPLE FALLS [id number] 05/16/2019 13:03:00 00:01:00 DIS Outpatient HARMONY LAWRENCE MD, V [facility] ONC [id number] 02/13/2019 10:44:00 23:59:59 CLS Outpatient ANJALI GRIMES FACRigoberto, WILNER LIRAP CC DS [facility] CARD SOB,CAD,SIN US BRADYCARDIA [id number] 11/29/2018 13:55:00 00:01:00 DIS Outpatient HARMONY LAWRENCE MD [facility] ONC [id number] 06/14/2018 08:40:00 019 00:01:00 DIS Outpatient HARMONY LAWRENCE MD, V [facility] ONC [id number] 06/02/2018 11:47:00 23:59:59 CLS Outpatient ANJALI GRIMES FACRigoberto, WILNER LIRAP CC DS [facility] CARD CAD,CAROTID ARTERY NARROWING,HTN,LEG SWELLING [id number] 01/10/2018 12:53:00 018 00:01:00 DIS Outpatient HOWARD GRIMES, HARMONY Miller [facility] ONC [id number] 03/15/2018 08:36:00 018 10:30:00 DIS Emergency AQUILINO DUDLEY MD [facility] ER DIZZINESS [id number] 01/07/2018 12:33:00 018 14:12:00 DIS Emergency LUCAS CALLES [employer] WORK[employer] [facility] ER SOB, DIARRHEA [id number] 01/06/2018 12:21:00 018 13:03:00 DIS Emergency YANETH SEPULVEDA MD [facility] ER SOA [id number] 12/26/2017 14:19:00 018 16:00:00 DIS Emergency DERICK GRIMES, YANETH Avila [facility] ER SOB [id number] 12/03/2017 10:28:00 018 12:32:00 DIS Emergency LUCAS CALLES GERMINATION WORKER [facility] ER ABD PAIN [id number] 10/22/2017 10:39:00 018 13:41:00 DIS Emergency LUCAS CALLES GERMINATION WORKER [facility] ER STOMACH PAIN [id number] 09/08/2017 12:57:00 018 11:28:00 DIS Outpatient DAYDAY JACQUES MD [facility] REHAB UPPER AND LOWER BACK P AIN; L ARM PAIN [id number] 09/24/2017 19:08:00 018 22:26:00 DIS Emergency SHU CHEN [facility] ER ABDOMINAL PROBLEMS [id number] 09/10/2017 13:47:00 018 18:08:00 DIS Emergency AQUILINO DUDLEY MD [facility] ER WEAKNESS/ALMOST PASSED OUT [id number] 08/29/2017 08:15:00 11:30:00 DIS Outpatient OLIVER ARIAS MD [facility] ENDO WT LOSS/IRREG BM [id number] 08/22/2017 05:39:00 10:10:00 DIS Outpatient OLIVER ARIAS MD [facility] PREOP COLONOSCOPY/EGD [id number] 08/11/2017 13:07:00 23:59:59 CLS Outpatient OLIVER ARIAS MD [facility] RAD CHRONIC MESENTERIC ISC HEMIA [id number] 07/18/2017 07:47:00 23:59:59 CLS Outpatient NATALYA MORAN [employer]MIN[employer] WORK[employer] [facility] RAD ONGOING ABD PAIN [id number] 07/11/2017 07:30:00 018 23:59:59 CLS Outpatient NATALYA MORAN [employer]ERMINATION WORKER [facility] RAD ABD PAIN [id number] 07/06/2017 11:30:00 018 23:59:59 CLS Preadmit GEORGIE GRIMES, DAYDAY Valdez [facility] REHAB UPPER AND LOWER BACK PA IN; L ARM PAIN [id number] 07/01/2017 10:58:00 23:59:59 CLS Outpatient ANTALYA MORAN [employer]ERMINATION WORKER [facility] RAD R10.9 [id number] 06/26/2017 01:53:00 018 05:02:00 DIS Emergency JOANIE DOZAYDA [facility] ER CONSTIPATION [id number] 06/25/2017 04:09:00 018 08:07:00 DIS Emergency JOANIE DOZAYDA [facility] ER PAIN [id number] 05/12/2017 11:53:00 23:59:59 CLS Outpatient HARPAL COBURN MD [facility] RAD PROSTATE CANCER [id number] 03/09/2017 19:36:00 23:59:59 CLS Emergency SEJAL WILSON MD [facility] ER TONGUE BLEEDING [id number] 03/03/2017 10:37:00 017 23:59:59 CLS Outpatient ANJALI GRIMES FACCWILNER FACP CC DS [facility] CARD CAD [id number] 12/01/2016 15:48:00 017 23:59:59 CLS Outpatient DAYDAY JACQUES MD [facility] RAD SINUS CONGESTION,ETHMO ID SINUS INFLAMMATION [id number] 11/11/2016 14:51:00 017 23:59:59 CLS Outpatient NATALYA MORAN APRN [facility] RAD COUGH [id number] 11/08/2016 10:44:00 12:36:00 DIS Emergency LUCAS CALLES APRN [facility] ER BLURRED VISION/CONGESTI ON [id number] 04/14/2016 06:55:00 016 13:15:00 DIS Outpatient ALYSA ARCHIBALD MD [facility] RIGHT ELBOW BURSITIS [id number] 04/12/2016 10:07:00 016 10:35:00 DIS Outpatient ALYSA ARCHIBALD MD [facility] PREOP RIGHT ELBOW BURSITIS [id number] 03/23/2016 07:31:00 016 23:59:59 CLS Outpatient GALE MAY [facility] CARD CAD,HYPERLIPIDE RADHA [id number] 01/26/2016 14:36:00 016 23:59:59 CLS Outpatient DAYDAY JACQUES MD [facility] DEHYDRATION [id number] 12/24/2014 06:27:00 16:08:00 DIS Outpatient HARPAL COBURN MD [facility] BPH [id number] 12/19/2014 12:47:00 23:59:59 CLS Outpatient HARPAL COBURN MD [facility] PREOP BPH [id number] 10/09/2014 13:53:00 015 16:23:00 DIS Outpatient OLIVER ARIAS MD [facility] SDC ABD. PAIN; CHANGE IN B [employer] [id number] 10/03/2014 05:50:00 015 23:59:59 CLS Outpatient OLIVER ARIAS MD [facility] PREOP ABD. PAIN; CHANGE IN B OWEL HABITS [id number] 10/02/2014 13:11:00 20:10:00 DIS Outpatient GEORGIE GRIMES, DAYDAY Valdez [facility] SURG RCR ABD PAIN [id number] 09/25/2014 08:00:00 23:59:59 CLS Outpatient RAMA PAGAN [facility] RAD ABDOMINAL PAIN [id number] 08/31/2014 16:41:00 015 20:26:00 DIS Emergency ZAYDA NAIR DO Vi [facility] ER HIGH BP [id number] 05/21/2014 13:39:00 23:59:59 CLS Outpatient RAMA PAGAN [facility] RAD COUGH [id number] 05/18/2014 19:14:00 015 21:07:00 DIS Emergency DERICK GRIMES, YANETH Avila [facility] ER SOA [id number] 02/11/2014 11:55:00 014 23:59:59 CLS Outpatient ANJALI GRIMES FACC, WILNER HOLT CC DS [facility] CARD BRADYCARDIA , [id number] 10/13/2013 17:17:00 014 23:59:59 CLS Outpatient KAREEM CISNEROS DO [facility] LAB COUGH [id number] 12/30/2017 18:17:00 Document Registration [id number] 12/19/2017 05:57:00 Document Registration [id number] 12/13/2017 04:16:00 Document Registration [id number] 01/26/2016 14:36:00 Document Registration [id number] 12/09/2011 13:38:00 Document Registration [id number] 11/29/2011 11:26:00 Document Registration [id number] 2011 07:24:00 Document Registration [id number] 03/30/2011 00:00:00 Document Registration [id number] 02/18/2011 13:52:00 Document Registration [id number] 01/29/2011 13:47:00 Document Registration [id number] 01/24/2011 22:29:00 Document Registration [id number] 01/15/2011 17:14:00 Document Registration [id number] 01/13/2011 13:36:00 Document Registration [id number] 01/12/2011 07:38:00 Document Registration [id number] 12/31/2010 09:17:00 Document Registration [id number] 12/26/2010 20:32:00 Document Registration [id number] 11/18/2010 12:35:00 Document Registration [id number] 10/29/2010 13:56:00 Document Registration
== END 2019-07-11 17:14 | disposition home or self-care (01) ==
LOC: EDUNIT# 14:48 → ER 14:49
DX: R42 Dizziness and giddiness (principal); R53.1 Weakness; I10 Essential (primary) hypertension; I25.10 Atherosclerotic heart disease of native coronary artery without angina pectoris; K21.9 Gastro-esophageal reflux disease without esophagitis; E11.9 Type 2 diabetes mellitus without complications; F03.90 Unspecified dementia, unspecified severity, without behavioral disturbance, psychotic disturbance, mood disturbance, and anxiety; Z95.5 Presence of coronary angioplasty implant and graft; Z86.73 Personal history of transient ischemic attack (TIA), and cerebral infarction without residual deficits; Z85.46 Personal history of malignant neoplasm of prostate; Z88.6 Allergy status to analgesic agent; Z88.8 Allergy status to other drugs, medicaments and biological substances; Z79.82 Long term (current) use of aspirin; Z79.02 Long term (current) use of antithrombotics/antiplatelets; Z79.51 Long term (current) use of inhaled steroids; Z79.84 Long term (current) use of oral hypoglycemic drugs
CPT/HCPCS: 36415; 70450; 71045; 80053; 81000; 83735; 83880; 84484; 85007; 85027; 87804; 93005

== ENCOUNTER 2019-08-06 12:06 | Outpatient (RCR) | payer MEDICARE ==
[2019-08-06 12:18] LABS: BASOPHILS % (AUTO) 0 % (0-10); EOSINOPHILS % (AUTO) 0 % (0-10); HEMATOCRIT 40 % (40-54); HEMOGLOBIN 13.3 G/DL (13.3-17.7); LYMPHOCYTES # (AUTO) 0.7 X 10^3 (1.0-4.0); LYMPHOCYTES % (AUTO) 15 % (12-44); MEAN CORPUSCULAR HEMOGLOBIN 33 PG (25-34); MEAN CORPUSCULAR HGB CONC 33 G/DL (32-36); MEAN CORPUSCULAR VOLUME 99 FL (80-99); MEAN PLATELET VOLUME 9.5 FL (7.4-10.4); MONOCYTES # (AUTO) 0.6 X 10^3 (0.0-1.0); MONOCYTES % (AUTO) 13 % (0-12); NEUTROPHILS # (AUTO) 3.4 X 10^3 (1.8-7.8); NEUTROPHILS % (AUTO) 72 % (42-75); PLATELET COUNT 218 10^3/uL (130-400); RED CELL DISTRIBUTION WIDTH 15.3 % (10.0-14.5); WHITE BLOOD COUNT 4.7 10^3/uL (4.3-11.0)
[2019-08-06 12:40] LABS: ALANINE AMINOTRANSFERASE 22 U/L (0-55); ALKALINE PHOSPHATASE 76 U/L (40-136); BILIRUBIN,TOTAL 0.5 MG/DL (0.1-1.0); BUN/CREATININE RATIO 19; CALCIUM 9.4 MG/DL (8.5-10.1); CARBON DIOXIDE 29 MMOL/L (21-32); CHLORIDE 101 MMOL/L (98-107); GFR ESTIMATED > 60; GLUCOSE 119 MG/DL (70-105); POTASSIUM 4.1 MMOL/L (3.6-5.0); SODIUM 136 MMOL/L (135-145); TOTAL PROTEIN 5.9 GM/DL (6.4-8.2)
[2019-08-08] MEDS ORDERED: LEUPROLIDE 22.5 MG SYRINGE (ELIGARD) SQ SCH (08:30)
== END 2019-08-08 13:04 | disposition home or self-care (01) ==
LOC: ONC 12:06
PROVIDERS: ATTEND Internal Medicine Hematology & Oncology
DX: C61 Malignant neoplasm of prostate (principal); I25.10 Atherosclerotic heart disease of native coronary artery without angina pectoris; R00.1 Bradycardia, unspecified; N41.1 Chronic prostatitis; M19.90 Unspecified osteoarthritis, unspecified site; E78.5 Hyperlipidemia, unspecified; E03.9 Hypothyroidism, unspecified; I70.90 Unspecified atherosclerosis; Z98.890 Other specified postprocedural states; Z95.5 Presence of coronary angioplasty implant and graft
CPT/HCPCS: 80053; 84153; 85025

== ENCOUNTER → 2019-08-08 | Outpatient (CLI) | payer MEDICARE | LOC: ONC 13:06 | PROVIDERS: ATTEND Internal Medicine Hematology & Oncology | DX: C61 Malignant neoplasm of prostate (principal); I25.10 Atherosclerotic heart disease of native coronary artery without angina pectoris; E78.5 Hyperlipidemia, unspecified; E03.9 Hypothyroidism, unspecified; Z95.5 Presence of coronary angioplasty implant and graft | CPT/HCPCS: 96402 ==

== ENCOUNTER → 2019-10-29 | Outpatient (CLI) | payer MEDICARE ==
[2019-10-29 11:26] LABS: BASOPHILS % (AUTO) 0 % (0-10); EOSINOPHILS % (AUTO) 1 % (0-10); HEMATOCRIT 39 % (40-54); HEMOGLOBIN 13.2 G/DL (13.3-17.7); LYMPHOCYTES # (AUTO) 0.7 X 10^3 (1.0-4.0); LYMPHOCYTES % (AUTO) 18 % (12-44); MEAN CORPUSCULAR HEMOGLOBIN 33 PG (25-34); MEAN CORPUSCULAR HGB CONC 34 G/DL (32-36); MEAN CORPUSCULAR VOLUME 98 FL (80-99); MEAN PLATELET VOLUME 9.9 FL (7.4-10.4); MONOCYTES # (AUTO) 0.5 X 10^3 (0.0-1.0); MONOCYTES % (AUTO) 13 % (0-12); NEUTROPHILS # (AUTO) 2.7 X 10^3 (1.8-7.8); NEUTROPHILS % (AUTO) 67 % (42-75); PLATELET COUNT 185 10^3/uL (130-400); RED CELL DISTRIBUTION WIDTH 12.6 % (10.0-14.5)
[2019-10-29 11:45] LABS: ALANINE AMINOTRANSFERASE 18 U/L (0-55); ALBUMIN 3.9 GM/DL (3.2-4.5); ALKALINE PHOSPHATASE 74 U/L (40-136); BILIRUBIN,TOTAL 0.4 MG/DL (0.1-1.0); BUN/CREATININE RATIO 18; CALCIUM 9.4 MG/DL (8.5-10.1); CARBON DIOXIDE 29 MMOL/L (21-32); CHLORIDE 104 MMOL/L (98-107); GFR ESTIMATED > 60; GLUCOSE 95 MG/DL (70-105); POTASSIUM 4.1 MMOL/L (3.6-5.0); SODIUM 139 MMOL/L (135-145)
== END ==
LOC: ONC 11:11
PROVIDERS: ATTEND Internal Medicine Hematology & Oncology
DX: C61 Malignant neoplasm of prostate (principal); I25.10 Atherosclerotic heart disease of native coronary artery without angina pectoris; I10 Essential (primary) hypertension; E78.5 Hyperlipidemia, unspecified; Z86.79 Personal history of other diseases of the circulatory system
CPT/HCPCS: 80053; 84153; 85025

== ENCOUNTER → 2019-10-31 | Outpatient (CLI) | payer MEDICARE ==
[~2019-10-31] MED LIST changes: +LEUPROLIDE 22.5 MG SYRINGE (ELIGARD) SQ SCH
== END ==
LOC: ONC 13:33
PROVIDERS: ATTEND Internal Medicine Hematology & Oncology
DX: Z51.11 Encounter for antineoplastic chemotherapy (principal); C61 Malignant neoplasm of prostate; I25.10 Atherosclerotic heart disease of native coronary artery without angina pectoris; R00.1 Bradycardia, unspecified; M19.90 Unspecified osteoarthritis, unspecified site; E78.5 Hyperlipidemia, unspecified; E03.9 Hypothyroidism, unspecified; I65.29 Occlusion and stenosis of unspecified carotid artery; Z95.5 Presence of coronary angioplasty implant and graft; Z98.890 Other specified postprocedural states; Z86.73 Personal history of transient ischemic attack (TIA), and cerebral infarction without residual deficits
CPT/HCPCS: 96402; G0463

== ENCOUNTER 2020-01-23 13:59 | Outpatient (RCR) | payer MEDICARE ==
[2020-01-21 10:46] LABS: BASOPHILS % (AUTO) 0 % (0-10); EOSINOPHILS # (AUTO) 0.1 10^3/uL (0.0-0.3); EOSINOPHILS % (AUTO) 1 % (0-10); HEMATOCRIT 38 % (40-54); HEMOGLOBIN 12.8 G/DL (13.3-17.7); LYMPHOCYTES # (AUTO) 0.7 X 10^3 (1.0-4.0); LYMPHOCYTES % (AUTO) 18 % (12-44); MEAN CORPUSCULAR HEMOGLOBIN 32 PG (25-34); MEAN CORPUSCULAR HGB CONC 33 G/DL (32-36); MEAN CORPUSCULAR VOLUME 96 FL (80-99); MEAN PLATELET VOLUME 10.1 FL (7.4-10.4); MONOCYTES # (AUTO) 0.5 X 10^3 (0.0-1.0); MONOCYTES % (AUTO) 14 % (0-12); NEUTROPHILS # (AUTO) 2.4 X 10^3 (1.8-7.8); NEUTROPHILS % (AUTO) 66 % (42-75); PLATELET COUNT 182 10^3/uL (130-400); WHITE BLOOD COUNT 3.6 10^3/uL (4.3-11.0)
[2020-01-21 11:09] LABS: ALANINE AMINOTRANSFERASE 20 U/L (0-55); ALBUMIN 3.7 GM/DL (3.2-4.5); ALKALINE PHOSPHATASE 76 U/L (40-136); BILIRUBIN,TOTAL 0.5 MG/DL (0.1-1.0); BUN/CREATININE RATIO 20; CARBON DIOXIDE 27 MMOL/L (21-32); CHLORIDE 104 MMOL/L (98-107); CREATININE SERUM 0.97 MG/DL (0.60-1.30); GFR ESTIMATED > 60; GLUCOSE 89 MG/DL (70-105); POTASSIUM 4.5 MMOL/L (3.6-5.0); SODIUM 138 MMOL/L (135-145); TOTAL PROTEIN 5.8 GM/DL (6.4-8.2)
[~2020-01-23 13:59] MED LIST changes: +AMLO-251 PO; -AMLO10TA7 PO; -PANT40TA3 PO; +PANT40TA52 PO
== END 2020-04-20 | disposition home or self-care (01) ==
LOC: ONC 13:59
PROVIDERS: ATTEND Internal Medicine Hematology & Oncology
DX: C61 Malignant neoplasm of prostate (principal)
CPT/HCPCS: 80053; 84153; 85025; 96402

== ENCOUNTER 2020-09-01 12:30 | Outpatient (RCR) | payer MEDICARE ==
[2020-06-05 10:39] LABS: BASOPHILS % (AUTO) 0 % (0-10); EOSINOPHILS # (AUTO) 0.1 10^3/uL (0.0-0.3); EOSINOPHILS % (AUTO) 2 % (0-10); HEMATOCRIT 41 % (40-54); HEMOGLOBIN 13.6 g/dL (13.3-17.7); LYMPHOCYTES # (AUTO) 0.9 10^3/uL (1.0-4.0); LYMPHOCYTES % (AUTO) 23 % (12-44); MEAN CORPUSCULAR HEMOGLOBIN 32 pg (25-34); MEAN CORPUSCULAR HGB CONC 33 g/dL (32-36); MEAN CORPUSCULAR VOLUME 95 fL (80-99); MEAN PLATELET VOLUME 10.5 fL (9.0-12.2); MONOCYTES # (AUTO) 0.6 10^3/uL (0.0-1.0); MONOCYTES % (AUTO) 16 % (0-12); NEUTROPHILS # (AUTO) 2.2 10^3/uL (1.8-7.8); NEUTROPHILS % (AUTO) 58 % (42-75); PLATELET COUNT 169 10^3/uL (130-400); WHITE BLOOD COUNT 3.8 10^3/uL (4.3-11.0)
[2020-06-05 10:59] LABS: BILIRUBIN,TOTAL 0.5 MG/DL (0.1-1.0); CALCIUM 9.6 MG/DL (8.5-10.1); CREATININE SERUM 1.18 MG/DL (0.60-1.30); TOTAL PROTEIN 6.1 GM/DL (6.4-8.2)
[2020-08-28 09:55] LABS: BASOPHILS % (AUTO) 1 % (0-10); EOSINOPHILS # (AUTO) 0.1 10^3/uL (0.0-0.3); EOSINOPHILS % (AUTO) 2 % (0-10); HEMATOCRIT 39 % (40-54); LYMPHOCYTES # (AUTO) 0.9 10^3/uL (1.0-4.0); LYMPHOCYTES % (AUTO) 27 % (12-44); MEAN CORPUSCULAR HEMOGLOBIN 33 pg (25-34); MEAN CORPUSCULAR HGB CONC 33 g/dL (32-36); MEAN CORPUSCULAR VOLUME 97 fL (80-99); MEAN PLATELET VOLUME 9.9 fL (9.0-12.2); MONOCYTES # (AUTO) 0.4 10^3/uL (0.0-1.0); MONOCYTES % (AUTO) 12 % (0-12); NEUTROPHILS # (AUTO) 1.9 10^3/uL (1.8-7.8); NEUTROPHILS % (AUTO) 59 % (42-75); PLATELET COUNT 163 10^3/uL (130-400); WHITE BLOOD COUNT 3.3 10^3/uL (4.3-11.0)
[2020-08-28 10:22] LABS: ALANINE AMINOTRANSFERASE 21 U/L (0-55); ALBUMIN 3.8 GM/DL (3.2-4.5); ALKALINE PHOSPHATASE 90 U/L (40-136); BILIRUBIN,TOTAL 0.5 MG/DL (0.1-1.0); BUN/CREATININE RATIO 19; CALCIUM 9.3 MG/DL (8.5-10.1); CARBON DIOXIDE 24 MMOL/L (21-32); CHLORIDE 101 MMOL/L (98-107); CREATININE SERUM 1.06 MG/DL (0.60-1.30); GFR ESTIMATED > 60; GLUCOSE 90 MG/DL (70-105); SODIUM 135 MMOL/L (135-145); TOTAL PROTEIN 5.9 GM/DL (6.4-8.2)
[~2020-09-01 12:30] MED LIST changes: -LISI-552 PO; +LISI20TA26 PO
== END 2020-09-03 | disposition home or self-care (01) ==
LOC: ONC 12:30
PROVIDERS: ATTEND Internal Medicine Hematology & Oncology
DX: C61 Malignant neoplasm of prostate (principal); D72.819 Decreased white blood cell count, unspecified; D64.9 Anemia, unspecified; I25.10 Atherosclerotic heart disease of native coronary artery without angina pectoris; E78.5 Hyperlipidemia, unspecified; I10 Essential (primary) hypertension; E03.9 Hypothyroidism, unspecified
CPT/HCPCS: 80053; 84153; 85025; 96402

== ENCOUNTER 2020-11-24 13:11 | Outpatient (RCR) | payer MEDICARE ==
[2020-11-20 10:07] LABS: BASOPHILS % (AUTO) 0 % (0-10); EOSINOPHILS % (AUTO) 1 % (0-10); HEMATOCRIT 38 % (40-54); HEMOGLOBIN 12.8 g/dL (13.3-17.7); LYMPHOCYTES # (AUTO) 0.7 10^3/uL (1.0-4.0); LYMPHOCYTES % (AUTO) 20 % (12-44); MEAN CORPUSCULAR HEMOGLOBIN 33 pg (25-34); MEAN CORPUSCULAR HGB CONC 34 g/dL (32-36); MEAN CORPUSCULAR VOLUME 96 fL (80-99); MEAN PLATELET VOLUME 9.6 fL (9.0-12.2); MONOCYTES # (AUTO) 0.5 10^3/uL (0.0-1.0); MONOCYTES % (AUTO) 14 % (0-12); NEUTROPHILS # (AUTO) 2.3 10^3/uL (1.8-7.8); NEUTROPHILS % (AUTO) 65 % (42-75); PLATELET COUNT 161 10^3/uL (130-400); WHITE BLOOD COUNT 3.5 10^3/uL (4.3-11.0)
[2020-11-20 10:38] LABS: ALANINE AMINOTRANSFERASE 23 U/L (0-55); ALBUMIN 3.8 GM/DL (3.2-4.5); ALKALINE PHOSPHATASE 79 U/L (40-136); BILIRUBIN,TOTAL 0.6 MG/DL (0.1-1.0); BUN/CREATININE RATIO 17; CARBON DIOXIDE 25 MMOL/L (21-32); CHLORIDE 97 MMOL/L (98-107); CREATININE SERUM 1.08 MG/DL (0.60-1.30); GFR ESTIMATED > 60; GLUCOSE 100 MG/DL (70-105); SODIUM 130 MMOL/L (135-145); TOTAL PROTEIN 5.8 GM/DL (6.4-8.2)
[~2020-11-24 13:11] MED LIST changes: +MIRT-68 PO
== END 2020-11-26 07:45 | disposition home or self-care (01) ==
LOC: ONC 13:11
PROVIDERS: ATTEND Internal Medicine Hematology & Oncology
DX: C61 Malignant neoplasm of prostate (principal); D72.819 Decreased white blood cell count, unspecified; D64.9 Anemia, unspecified; I25.10 Atherosclerotic heart disease of native coronary artery without angina pectoris; E78.5 Hyperlipidemia, unspecified; I10 Essential (primary) hypertension; E03.9 Hypothyroidism, unspecified
CPT/HCPCS: 80053; 84153; 85025; 96402

== ENCOUNTER 2021-05-06 09:45 | Outpatient (RCR) | payer MEDICARE ==
[2021-02-12 10:23] LABS: BASOPHILS % (AUTO) 1 % (0-10); EOSINOPHILS % (AUTO) 1 % (0-10); HEMATOCRIT 38 % (40-54); HEMOGLOBIN 12.7 g/dL (13.3-17.7); LYMPHOCYTES # (AUTO) 0.7 10^3/uL (1.0-4.0); LYMPHOCYTES % (AUTO) 19 % (12-44); MEAN CORPUSCULAR HEMOGLOBIN 33 pg (25-34); MEAN CORPUSCULAR HGB CONC 34 g/dL (32-36); MEAN CORPUSCULAR VOLUME 98 fL (80-99); MEAN PLATELET VOLUME 9.9 fL (9.0-12.2); MONOCYTES # (AUTO) 0.5 10^3/uL (0.0-1.0); MONOCYTES % (AUTO) 12 % (0-12); NEUTROPHILS # (AUTO) 2.6 10^3/uL (1.8-7.8); NEUTROPHILS % (AUTO) 67 % (42-75); PLATELET COUNT 181 10^3/uL (130-400); WHITE BLOOD COUNT 3.8 10^3/uL (4.3-11.0)
[2021-02-12 10:44] LABS: ALBUMIN 3.7 GM/DL (3.2-4.5); BILIRUBIN,TOTAL 0.5 MG/DL (0.1-1.0); CALCIUM 9.5 MG/DL (8.5-10.1); CREATININE SERUM 1.04 MG/DL (0.60-1.30); POTASSIUM 4.3 MMOL/L (3.6-5.0); TOTAL PROTEIN 5.7 GM/DL (6.4-8.2)
[2021-05-06 10:01] LABS: BASOPHILS % (AUTO) 1 % (0-10); EOSINOPHILS # (AUTO) 0.1 10^3/uL (0.0-0.3); EOSINOPHILS % (AUTO) 3 % (0-10); HEMATOCRIT 40 % (40-54); HEMOGLOBIN 13.3 g/dL (13.3-17.7); LYMPHOCYTES % (AUTO) 26 % (12-44); MEAN CORPUSCULAR HEMOGLOBIN 33 pg (25-34); MEAN CORPUSCULAR HGB CONC 34 g/dL (32-36); MEAN CORPUSCULAR VOLUME 98 fL (80-99); MEAN PLATELET VOLUME 10.2 fL (9.0-12.2); MONOCYTES # (AUTO) 0.6 10^3/uL (0.0-1.0); MONOCYTES % (AUTO) 14 % (0-12); NEUTROPHILS # (AUTO) 2.2 10^3/uL (1.8-7.8); NEUTROPHILS % (AUTO) 56 % (42-75); PLATELET COUNT 172 10^3/uL (130-400); WHITE BLOOD COUNT 3.9 10^3/uL (4.3-11.0)
[2021-05-06 10:25] LABS: BILIRUBIN,TOTAL 0.5 MG/DL (0.1-1.0); CALCIUM 9.9 MG/DL (8.5-10.1); CREATININE SERUM 1.06 MG/DL (0.60-1.30); POTASSIUM 4.1 MMOL/L (3.6-5.0); TOTAL PROTEIN 6.3 GM/DL (6.4-8.2)
== END 2021-05-08 | disposition home or self-care (01) ==
LOC: ONC 09:45
PROVIDERS: ATTEND Internal Medicine Hematology & Oncology
DX: C61 Malignant neoplasm of prostate (principal); D72.819 Decreased white blood cell count, unspecified; D64.9 Anemia, unspecified; E78.5 Hyperlipidemia, unspecified; I10 Essential (primary) hypertension; E03.9 Hypothyroidism, unspecified
CPT/HCPCS: 80053; 84153; 85025; 96402

== ENCOUNTER 2021-05-12 10:18 | Outpatient (RCR) | payer MEDICARE | END 2021-06-08 | disposition home or self-care (01) | LOC: ONC 10:18 | PROVIDERS: ATTEND Internal Medicine Hematology & Oncology | DX: C61 Malignant neoplasm of prostate (principal); D72.819 Decreased white blood cell count, unspecified; D64.9 Anemia, unspecified; E78.5 Hyperlipidemia, unspecified; I10 Essential (primary) hypertension; E03.9 Hypothyroidism, unspecified | CPT/HCPCS: 96402; G0463; 99213 ==

== ENCOUNTER → 2021-07-23 | Outpatient (CLI) | payer MEDICARE ==
[~2021-07-23] MED LIST changes: -LEUPROLIDE 22.5 MG SYRINGE (ELIGARD) SQ SCH
== END ==
LOC: CARD 11:00
PROVIDERS: ATTEND Family Medicine
DX: I08.3 Combined rheumatic disorders of mitral, aortic and tricuspid valves (principal); R53.1 Weakness; Z86.79 Personal history of other diseases of the circulatory system
CPT/HCPCS: 93005; 93225; 93226; 93306

== ENCOUNTER → 2021-08-06 | Outpatient (RCR) | payer MEDICARE ==
[2021-08-06 09:49] LABS: BASOPHILS % (AUTO) 0 % (0-10); EOSINOPHILS # (AUTO) 0.1 10^3/uL (0.0-0.3); EOSINOPHILS % (AUTO) 1 % (0-10); HEMATOCRIT 41 % (40-54); HEMOGLOBIN 13.7 g/dL (13.3-17.7); LYMPHOCYTES # (AUTO) 0.9 10^3/uL (1.0-4.0); LYMPHOCYTES % (AUTO) 18 % (12-44); MEAN CORPUSCULAR HEMOGLOBIN 33 pg (25-34); MEAN CORPUSCULAR HGB CONC 34 g/dL (32-36); MEAN CORPUSCULAR VOLUME 96 fL (80-99); MEAN PLATELET VOLUME 9.9 fL (9.0-12.2); MONOCYTES # (AUTO) 0.5 10^3/uL (0.0-1.0); MONOCYTES % (AUTO) 10 % (0-12); NEUTROPHILS # (AUTO) 3.3 10^3/uL (1.8-7.8); NEUTROPHILS % (AUTO) 70 % (42-75); PLATELET COUNT 184 10^3/uL (130-400); WHITE BLOOD COUNT 4.8 10^3/uL (4.3-11.0)
[2021-08-06 10:06] LABS: ALBUMIN 4.1 GM/DL (3.2-4.5); BILIRUBIN,TOTAL 0.6 MG/DL (0.1-1.0); CALCIUM 9.8 MG/DL (8.5-10.1); CREATININE SERUM 1.03 MG/DL (0.60-1.30); TOTAL PROTEIN 6.3 GM/DL (6.4-8.2)
== END ==
LOC: ONC 09:38
PROVIDERS: ATTEND Internal Medicine Hematology & Oncology
DX: C61 Malignant neoplasm of prostate (principal); D72.819 Decreased white blood cell count, unspecified; D64.9 Anemia, unspecified; E78.5 Hyperlipidemia, unspecified; I10 Essential (primary) hypertension; E03.9 Hypothyroidism, unspecified; I25.10 Atherosclerotic heart disease of native coronary artery without angina pectoris; I65.23 Occlusion and stenosis of bilateral carotid arteries
CPT/HCPCS: 36415; 80053; 84153; 85025

== ENCOUNTER 2021-08-10 10:24 | Outpatient (RCR) | payer MEDICARE ==
[~2021-08-10 10:24] MED LIST changes: +LEUPROLIDE 22.5 MG SYRINGE (ELIGARD) SQ SCH
== END 2021-09-05 | disposition home or self-care (01) ==
LOC: ONC 10:24
PROVIDERS: ATTEND Internal Medicine Hematology & Oncology
DX: C61 Malignant neoplasm of prostate (principal); D72.819 Decreased white blood cell count, unspecified; D64.9 Anemia, unspecified; E78.5 Hyperlipidemia, unspecified; I10 Essential (primary) hypertension; E03.9 Hypothyroidism, unspecified
CPT/HCPCS: 96402; G0463; 99213